=== PATIENT | female | born 1955 | race Caucasian/White ===

== ENCOUNTER 2017-10-13 16:20 | Emergency (ER) | payer OTHER, SELFPAY ==
[2017-10-13 16:21] VITALS: BP 159/76; PULSE 81; RESP 16; TEMP 36.1; O2SAT 97; BMI 39.5
--- NOTE | 2017-10-13 16:59 | ED.DCSUM_ITS ---
- ER Visit Summary Date of Service: 10/13/17 Chief Complaint: Laceration History of Present Illness: The patient is a 61 F who reports that she cut her right ring finger on a mandolin just prior to coming emergency department. She is on Plavix for a stent and is unable to get it to stop bleeding. She complains that she has a dull pain is 4 out of 10 severity. Is worsened by dependent position. Is relieved by elevating it and using cold. She denies any paresthesias. She is unsure when her last tetanus shot was. Physical Examination: Vitals: Stable. Afebrile. General: Well-nourished and well-developed. Head: Normocephalic atraumatic. Neck: Supple, no lymphadenopathy. No JVD. Nontender. Cardiovascular: Regular rate and rhythm. No murmurs. Respiratory: No respiratory distress. Clear to auscultation bilaterally. Abdominal: Soft, nontender, nondistended, normal bowel sounds. No guarding, rebound, or peritoneal signs. Back: Nontender. Extremities: Evulsion to the ulnar side of the distal phalanx of her ring finger that has bleeding from the proximal portion. This does involve a portion of her nail as well. Skin: Normal color, no rash. Neurologic: Alert and oriented ?3. Cranial nerves II through XII are intact. Normal strength and sensation. Psych: Normal affect. Emergency Department Course and Treatment: With a superficial avulsion there is nothing that is amenable to be sutured. She had Gelfoam and a tube gauze dressing placed. She is instructed to leave this in place for the next 24-48 hours. Treatment Plan: Follow-up with Dr. Herrera Sabillon who is next on the list for no doc as needed. Return to the emergency department for any worsening symptoms. Disposition: To home in improved and stable condition. Impression: 1. Partial avulsion right fourth finger distal phalanx. This note was generated with [employer] dictation software. It may contain incorrect words, spelling, and punctuation that were not noted in review of the chart prior to signing ED Disposition - Plan for ED Patient: Disposition: Home or Assisted Living Chief Complaint: Laceration Instructions: ED Laceration Amputation Finger Tip Open Tx Referrals: Herrera Thomas MD [STAFF PHYSICIAN] - As Needed
[2017-10-13 17:15] VITALS: BP 147/83; PULSE 87; RESP 14; O2SAT 99
== END 2017-10-13 17:16 | disposition home or self-care (01) ==
PROVIDERS: Emergency Provider Emergency Medicine
DX: S61.304A Unspecified open wound of right ring finger with damage to nail, initial encounter (principal); W45.8XXA Other foreign body or object entering through skin, initial encounter; Y93.9 Activity, unspecified; Y92.89 Other specified places as the place of occurrence of the external cause; Y99.9 Unspecified external cause status; I25.10 Atherosclerotic heart disease of native coronary artery without angina pectoris; E78.00 Pure hypercholesterolemia, unspecified; I10 Essential (primary) hypertension; E11.9 Type 2 diabetes mellitus without complications; F17.200 Nicotine dependence, unspecified, uncomplicated
CPT/HCPCS: 99282

== ENCOUNTER 2018-07-14 07:12 | Day surgery (SDC) | payer OTHER, SELFPAY ==
[2018-07-14] VITALS (7 sets, daily range): BP systolic 86–157; BP diastolic 31–123; PULSE 63–70; RESP 16; TEMP 35.8–36.6; O2SAT 92–99; BMI 37.5
[2018-07-14 07:50] LABS: Bedside Glucose 204 mg/dL (70-110)
--- NOTE | 2018-07-14 08:30 | COLBX_PTH ---
PATIENT: KAELYN DRUMMOND LOC: EN U#:[id number] AGE/SX: 62/F ROOM: RE07/14/[address]: Dr. Damion Drake MD : 1955 BED: DIS: 07/14/2018 SPEC #: [id number] RECD: 07/14/18 09:39 STATUS: VALERIO ROBERT #: [id number] RYDER: 07/14/18 08:[address]: Damion Drake DEPT: SURGICAL PATHOLOGY RECD BY: Casper Maki ENTERED: 07/14/18 11:32 SP TYPE: COLON BX OTHR DR: No Primary Care Phys Tissues: A - Cecum, NOS B - Rectum, NOS Procedures: Surgery Specimen Level IV HEADER OPERATION: Colonoscopy (MOD) PRE-OP DIAGNOSIS: Rectal bleeding TISSUE SUBMITTED: A. Cecal polyp, B. Rectal polyp MICROSCOPIC DIAGNOSIS A. Cecal polyp, biopsy: Tubular adenoma. B. Rectal polyp, biopsy: Fragments of colonic mucosa with focal hyperplastic changes. CAMILA:adrienne 07/15/18 MICROSCOPIC DESCRIPTION Slides are reviewed. GROSS DESCRIPTION A - Received in fixative is one container labeled with the patient's name and designated polyp cecum. The specimen consists of one irregular fragment of light mcmahon soft tissue that measures 0.3 x 0.3 x 0.1 cm. The specimen is totally submitted in one cassette. B - Received in fixative is one container labeled with the patient's name and designated polyp rectal. The specimen consists of two irregular fragments of light mcmahon soft tissue that in aggregate measure 1 x 0.3 x 0.2 cm. The specimen is totally submitted in one cassette. / CAMILA:adrienne 07/14/18 TC:1 CPT: 54857 x2
--- NOTE | 2018-07-14 09:11 | OP.ENDO_ITS ---
Patient Name: Anitra Powers Procedure Date: 07/14/2018 8:34 AM Date of : 1955 Age: 62 Procedure: Colonoscopy Indications: Rectal bleeding Providers: Damion Drake MD Referring MD: Damion Drake MD Medicines: Midazolam 4.5 mg IV, Meperidine 100 mg IV Patient Profile: Last Colonoscopy: none. The patient's first colonoscopy is today. Complications: No immediate complications. Procedure: Pre-Anesthesia Assessment: - Prior to the procedure, a History and Physical was performed, and patient medications and allergies were reviewed. The patient's tolerance of previous anesthesia was also reviewed. The risks and benefits of the procedure and the sedation options and risks were discussed with the patient. All questions were answered, and informed consent was obtained. Prior Anticoagulants: The patient has taken no previous anticoagulant or antiplatelet agents. ASA Grade Assessment: II - A patient with mild systemic disease. After reviewing the risks and benefits, the patient was deemed in satisfactory condition to undergo the procedure. After I obtained informed consent, the scope was passed under direct vision. Throughout the procedure, the patient's blood pressure, pulse, and oxygen saturations were monitored continuously. The adult colonoscope was introduced through the anus and advanced to the cecum, identified by appendiceal orifice and ileocecal valve. The colonoscopy was performed without difficulty. The patient tolerated the procedure well. The quality of the bowel preparation was adequate to identify polyps. The ileocecal valve was photographed. Moderate Sedation: Moderate (conscious) sedation was personally administered by the endoscopist. The following parameters were monitored: oxygen saturation, heart rate, blood pressure, and response to care. Total physician intraservice time was 15 minutes. Scope In: 8:42:48 AM Scope Withdrawal Time 0 hours 15 minutes 28 seconds Scope Out: 9:04:58 AM Total Procedure Duration Time 0 hours 22 minutes 10 seconds Findings: The digital rectal exam findings include non-thrombosed external hemorrhoids, non-thrombosed internal hemorrhoids and internal hemorrhoids that prolapse with straining, but spontaneously regress to the resting position (Grade II). A 8 mm polyp was found in the cecum. The polyp was sessile. The polyp was removed with a cold biopsy forceps. The polyp was removed with a cold snare. Resection and retrieval were complete. A 5 mm polyp was found in the rectum. The polyp was sessile. The polyp was removed with a cold snare. Resection and retrieval were complete. The exam was otherwise without abnormality. Impression: - Non-thrombosed external hemorrhoids, non-thrombosed internal hemorrhoids and internal hemorrhoids that prolapse with straining, but spontaneously regress to the resting position (Grade II) found on digital rectal exam. - One 8 mm polyp in the cecum, removed with a cold biopsy forceps and removed with a cold snare. Resected and retrieved. - One 5 mm polyp in the rectum, removed with a cold snare. Resected and retrieved. - The examination was otherwise normal. Recommendation: - Discharge patient to home. - Resume previous diet. - Continue present medications. - Repeat colonoscopy in 5 years for surveillance. - Telephone my office for pathology results in 1 week. Procedure Code(s): --- Professional --- 09737, Colonoscopy, flexible; with removal of tumor(s), polyp(s), or other lesion(s) by snare technique 76626, 59, Moderate sedation services provided by the same physician or other qualified health assurance services manager health care performing the diagnostic or therapeutic service that the sedation supports, requiring the presence of an independent trained observer to assist in the monitoring of the patient's level of consciousness and physiological status; initial 15 minutes of intraservice time, patient age 5 years or older Diagnosis Code(s): --- Professional --- K64.1, Second degree hemorrhoids K64.4, Residual hemorrhoidal skin tags D12.0, Benign neoplasm of cecum K62.1, Rectal polyp K62.5, Hemorrhage of anus and rectum CPT copyright 2017 [employer]. All rights reserved. The codes documented in this report are preliminary and upon clamp jig assembler review may be revised to meet current compliance requirements. Damion Drake MD 07/14/2018 9:10:38 AM This report has been signed electronically. Number of Addenda: 1 Note Initiated On: 07/14/2018 8:34 AM Addendum Number: 1 Addendum Date: 07/14/2018 9:10:56 AM No current rectal bleeding If previous bleeding was actually rectal then would suspect internal hemorrhoids as source Will recommend conservative management Bethany Drake MD 07/14/2018 9:11:52 AM This report has been signed electronically.
--- OUTSIDE RECORDS SUMMARY | 2018-08-25 19:53 | XMS RPT_ITS | Clinical Summary ---
:1955 Author Organization [facility] Address [address] [place] [address] Phone Care Team Providers Name Role Phone MD Ryan, Eder Veliz Unavailable [ ] Conditions or Problems Problem Name Problem Onset Status Entry Provider Comment Standard Annotate Code Date Date Description Body mass Z68.35 Inactive Alonso A Body mass index index (BMI) (ICD-10-CM 10/16 10/16 [place] (BMI) 35.0-35.9, 35.0-35.9, ) MANAGER BUSINESS OPERATIONS-C adult adult BODY MASS Z68.41 Active Alonso A Body mass index INDEX (ICD-10-CM 10/17 10/17 [place] (BMI) 40.0-44.9, 40.0-44.9 ) MANAGER BUSINESS OPERATIONS-C adult ADULT Body mass Z68.37 Inactive Eder Veliz Body mass index index (BMI) (ICD-10-CM 10/17 10/17 MD Ryan (BMI) 37.0-37.9, 37.0-37.9, ) adult adult Body mass Z68.35 Removed Arely Brown Body mass index index (BMI) (ICD-10-CM 10/16 10/16 [place], (BMI) 35.0-35.9, 35.0-35.9, ) RN adult adult intermediate manager Z79.02 Active Arely Brown intermediate manager (current) (ICD-10-CM 10/16 10/16 [place], (current) use of use of ) RN antithrombotics/ antithrombot antiplatelets ics/antiplat elets Hyperlipidem 51033774 Active Arely Brown Hyperlipidemia ia (SNOMED 10/16 10/16 [place]) RN Status post [id number] Active Arely M Placement of cardiac (SNOMED 10/16 10/16 [facility], stent in stent CT) RN coronary artery placement 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[facility], heart disease of disease of ) RN [place] coronary [place] artery without coronary angina pectoris artery without angina pectoris Nicotine 30386471 Active Arely M Nicotine dependence ([facility]16 [facility], dependence CT) RN LONG-TERM 148799681 Active Arely Long-term drug USE OF High ([facility] 10/16 10/16 [facility], therapy Risk CT) RN MEDICATIONS Hypertension 14380372 Active Arely M Hypertensive ([facility] 10/16 10/16 [facility], disorder CT) RN Medications Medication Instructions Start Stop Generic Name NDC Provider Date Date AMLODIPINE One tablet by / AMLODIPINE [id number] [place] S BESYLATE 5 MG mouth daily BESYLATE MD Ryan TABS LISINOPRIL 10 One tablet by / LISINOPRIL 65989200730 [place] S MG TABS mouth daily MD Ryan ATORVASTATIN One tablet by / ATORVASTATIN 46466989180 [place] S CALCIUM 80 MG mouth every CALCIUM MD Ryan TABS night METOPROLOL One half / METOPROLOL 11316571098 [place] S TARTRATE 25 MG tablet by mouth TARTRATE MD Ryan TABS twice daily PLAVIX 75 MG One tablet by / CLOPIDOGREL 15373230875 [place] S TABS mouth daily BISULFATE MD Ryan METFORMIN HCL four tablets by / METFORMIN HCL 95720968388 [place] S ER 500 MG mouth daily MD Ryan [id number] LANTUS 100 25 units per / INSULIN 13405833227 Alonso A UNIT/ML SOLN day 13 GLARGINE [place] MANAGER BUSINESS OPERATIONS-C ASPIRIN 81 MG One tablet by / ASPIRIN 50054273002 Arely M TABS mouth daily TIARA Smart MELOXICAM 15 MG One tablet by / MELOXICAM 82603373296 Arely M TABS mouth daily TIARA Smart AMARYL 4 MG One tablet by / GLIMEPIRIDE 82645624790 Arely M TABS mouth daily TIARA Smart METOPROLOL One tablet by / METOPROLOL 53975709762 Arely M TARTRATE 25 MG mouth twice TARTRATE TIARA Smart TABS daily METFORMIN HCL Two tablets by / METFORMIN HCL 52530315883 Arely M ER 500 MG mouth twice TIARA Smart [id number] daily BEE POLLEN 580 One tablet by / BEE POLLEN 27960444023 Arely M MG CAPS mouth daily Kiljosh RN BEE POLLEN 580 One tablet by BEE POLLEN 97167482239 [place] S MG CAPS mouth daily MD Ryan NICOTINE 7 one patch / NICOTINE 74698332398 Arely M MG/24HR PT24 transderm daily TIARA Smart NICOTINE 7 one patch NICOTINE 15982362380 Alonso A MG/24HR PT24 transderm daily [place] MANAGER BUSINESS OPERATIONS-C LORAZEPAM 0.5 as directed as / LORAZEPAM 60786802504 Arely M MG TABS needed TIARA Smart LORAZEPAM 0.5 as directed as LORAZEPAM 57545440962 [place] S MG TABS needed MD Ryan Medications Administered No information available. Allergies, Adverse Reactions, Alerts Allergy Name Reaction Start Date Severity Status Provider Description NKDA Mild Active Arely Smart RN Results Date Name Value Unit Range Flag Description Clinical Lists Update: Preload CARDEFECHO 65 % Left ventricular Ejection fraction Office Visit CHD 10YR RSK N/A General cardiovascular disease 10Y risk [#] [place].D'Agostino CARD RSK GRP C cardiac risk group DIET EVS ATTENDANT yes Dietary management education, guidance, and counseling (procedure) MEDS REVIEW Done Documentation of current medications (procedure) SMOK ADVICE yes Smoking cessation education (procedure) SMOK STATUS Current every Tobacco use [facility] day smoker Lab Report: Urinalysis, Routine (Dipstick) WBC DIPSTK U 500 Negative H leukocyte esterase, urine, by dipstick OCC BLD UR 150 Negative H Occult Blood, urine NITRITE UA Negative Negative Nitrite Urine UROBILIURDIP Normal mg/d Normal urobilinogen, urine, L by dipstick PROTEIN, URN 100 Negative H Albumin [Presence] in Urine PH URINE 6.0 5.0 - 8.0 pH, urine, semiquantitative SPEC GR URIN 1.025 1.002-1.030 specific gravity, urine KETONES URN Negative Negative ketones, urine, by test strip BILIRUBIN UR Negative Negative bilirubin, urine GLUCOSE UA Normal mg/d Normal Glucose Urine L CLARITY UR Sl. Cloudy Clear clarity, urine, point UA COLOR Yellow Yellow urine color Lab Report: CBC W/Diff, Automated LYMPHCT AUTO 2.32 X10 10*3/mm3 0.83-4.51 lymphocyte 3/UL count, blood, automated ANC 5.1 X10 10*3/mm3 2.0-7.7 neutrophil 3/UL count, blood IMM GRANU % 0.200 % 0.0-0.9 immature granulocytes, percentage of total cells, blood BASOPHIL % 0.4 % 0-1 basophils as percent of blood leukocytes EOSINOPHIL % 1.7 % 0-5 eosinophils as percent of blood leukocytes MONOCYTE % 9.1 % 0-10 monocytes as percent of blood leukocytes LYMPHS % 27.6 % 19-41 lymphocytes as percent of blood leukocytes PMN % 61.0 % 47-70 neutrophils as percent of blood leukocytes MPV 9.7 fL 6.2-12.0 mean platelet volume PLATELETS 246 10*3/mm3 150-450 platelet count RDW-SD 46.4 fL 35.1-43.9 H red blood cell distribution width, size density RDW 13.5 % 11.6-14.6 red blood cell distribution width MCHC RBC 34.0 G/GL g/dL 32-36 mean corpuscular hemoglobin concentration, RBC MCH 32.8 pg 27.0-32.0 H mean corpuscular hemoglobin, RBC MCV 96.4 fL 81-99 mean corpuscular volume, RBC HCT 45.9 % 37-47 hematocrit, blood HGB 15.6 g/dL 12.0-15.0 H hemoglobin, blood RBC M/UL 4.76 10*6/uL 4.2-5.4 red blood count WBC BLOOD 8.4 10*9/L 4.4-11.0 leukocyte (white blood cells) count, blood Lab Report: Vitamin D,25 Hydroxy VIT D 25-OH 15.4 ng/mL vitamin D 25-hydroxy, serum Lab Report: Comprehensive Metabolic Profil ANION GAP 11 5-15 anion gap, serum CO2 25.0 mmol/L 21.0-32.0 carbon dioxide, venous blood CHLORIDE 103 mmol/L 98-107 chloride, serum POTASSIUM 4.2 mmol/L 3.5-5.1 potassium, serum SODIUM 139 mmol/L 136-145 sodium, serum BILI TOTAL 0.40 mg/dL 0.20-1.00 bilirubin, serum, total SGPT (ALT) 31 U/L 12-78 alanine aminotransferase (SGPT), serum ALK PHOS 63 U/L 45-117 alkaline phosphatase, serum SGOT (AST) 24 U/L 15-37 aspartate aminotransferase (SGOT), serum CALCIUM 8.4 mg/dL 8.5-10.1 L calcium, serum A/G RATIO 1.1 RATIO 0.9-2.4 albumin/globulin ratio, serum GLOBULIN TOT 3.3 g/dL 2.3-3.5 globulins, serum, total ALBUMIN 3.5 g/dL 3.4-5.0 albumin, serum PROTEIN, TOT 6.8 g/dL 6.4-8.2 protein, total, serum BUN/CREAT 21.2 RATIO 10-20 H urea nitrogen/creatinine ratio, serum GFRAA 117 mL/min >60 Glomerular Filtration rate GFR EST 96 mL/min >60 estimated glomerular filtration rate CREATININE 0.66 mg/dL 0.55-1.02 creatinine, serum BUN 14 mg/dL 7-18 urea nitrogen, blood GLUCOSE SER 159 mg/dL 70-110 H blood glucose Lab Report: Lipid Profile VLDL 58 mg/dL 5-40 H very low density lipoproteins LDL 84 mg/dL 0-130 Cholesterol in LDL [Mass/volume] in Serum or Plasma HDL 35 mg/dL L Cholesterol in HDL [Mass/volume] in Serum or Plasma TRIGLYCRDES 292 mg/dL H Triglyceride [Mass/volume] in Serum or Plasma CHOLESTEROL 177 mg/dL 200 Cholesterol [Mass/volume] in Serum or Plasma Lab Report: Bilirubin, Direct BILI DIRECT 0.13 mg/dL 0.00-0.30 bilirubin, serum, direct Plan of Care Type Date Detail Appointment 10:00 AM Ivonne Mendoza PA-C, [address] [facility], [address], [place], [address], Pending order MMM Pending order Follow Up Appt 6 months Pending order *Hepatic Function Panel Pending order *Lipid Profile CC PCP Pending order MANAGER FARM Pending order Follow Up Appt 6 months Pending order MMM Pending order Follow Up Appt 6 months Pending order *Hepatic Function Panel Pending order *Lipid Profile CC PCP Procedures Code Procedure Name Date Entry Date 787-08 *Hepatic Function Panel 91452-0 *Lipid Profile CC PCP F/U MANAGER FARM MANAGER FARM FUA 6 months Follow Up Appt 6 months F/U MMM MMM FUA 6 months Follow Up Appt 6 months 0788-1 *Hepatic Function Panel 30085-9 *Lipid Profile CC PCP Vital Signs Date Name Value Unit Description BMI (Body Mass Index) 40.97 kg/m2 Body Mass Index [Ratio] BP Diastolic 60 mm[Hg] blood pressure, diastolic - 8462-4 BP Diastolic 64 mm[Hg] blood pressure, diastolic, standing BP Systolic 90 mm[Hg] blood pressure, systolic - 8480-6 BP Systolic 110 mm[Hg] blood pressure, systolic, standing Heart Rate 64 /min pulse rate E&M - 8867-4 Height 62 [in_us] height E&M - 8302-2 Respiratory Rate 18 /min respiratory rate E&M - 9279-1 Weight Measured 224 [lb_av] weight E&M - 3141-9 BSA (Body Surface 2.00 body surface area Area)
--- OUTSIDE RECORDS SUMMARY | 2018-08-25 19:53 | XMS RPT_ITS | Clinical Summary ---
:1955 Author Organization [facility] Address [address] [place] [phone] Phone Care Team Providers Name Role Phone Jesusita Larios Garcia Roseann Unavailable Conditions or Problems Problem Name Problem Onset Status Entry Provider Comment Standard Annotate Code Date Date Description Body mass Z68.35 Inactive Alonso A Body mass index index (BMI) (ICD-10-CM 10/16 10/16 [place] (BMI) 35.0-35.9, 35.0-35.9, ) NET DEVELOPMENT MANAGER-C adult adult BODY MASS Z68.41 Active Alonso A Body mass index INDEX (ICD-10-CM 10/17 10/17 [place] (BMI) 40.0-44.9, 40.0-44.9 ) NET DEVELOPMENT MANAGER-C adult ADULT Body mass Z68.37 Inactive Eder Veliz Body mass index index (BMI) (ICD-10-CM 10/17 10/17 MD Ryan (BMI) 37.0-37.9, 37.0-37.9, ) adult adult Body mass Z68.35 Removed Arely M Body mass index index (BMI) (ICD-10-CM 10/16 10/16 [place], (BMI) 35.0-35.9, 35.0-35.9, ) RN adult adult superintendent terminal Z79.02 Active Arely M superintendent terminal (current) (ICD-10-CM 10/16 10/16 [place], (current) use of use of ) RN antithrombotics/ antithrombot antiplatelets ics/antiplat elets Hyperlipidem 86307220 Active Arely M Hyperlipidemia ia (SNOMED 10/16 10/16 [place]) RN Status post 92584136 Active Arely M Placement of cardiac (SNOMED 10/16 10/16 [facility], stent in stent CT) RN coronary artery placement 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[facility], heart disease of disease of ) RN [place] coronary [place] artery without coronary angina pectoris artery without angina pectoris Nicotine 35344479 Active Arely Nicotine dependence ([facility] 10/16 10/16 [facility], dependence CT) RN LONG-TERM 200923746 Active Arely Long-term drug USE OF High ([facility] 10/16 10/16 [facility], therapy Risk CT) RN MEDICATIONS Hypertension 76595275 Active Arely Hypertensive ([facility] 10/16 10/16 [facility], disorder CT) RN Medications Medication Instructions Start Stop Generic Name NDC Provider Date Date AMLODIPINE One tablet by / AMLODIPINE 09940062991 [place] S BESYLATE 5 MG mouth daily BESYLATE MD Ryan TABS LISINOPRIL 10 One tablet by / LISINOPRIL 86220055685 Eder S MG TABS mouth daily MD Ryan ATORVASTATIN One tablet by / ATORVASTATIN 79236161752 Eder S CALCIUM 80 MG mouth every CALCIUM MD Ryan TABS night METOPROLOL One half / METOPROLOL 49448623343 [place] S TARTRATE 25 MG tablet by mouth TARTRATE MD Ryan TABS twice daily PLAVIX 75 MG One tablet by / CLOPIDOGREL 82068556416 [place] S TABS mouth daily BISULFATE MD Ryan METFORMIN HCL four tablets by / METFORMIN HCL 23629729982 Eder S ER 500 MG mouth daily MD Ryan [id number] LANTUS 100 25 units per / INSULIN 38854192365 Alonso A UNIT/ML SOLN day 13 GLARGINE [place] NET DEVELOPMENT MANAGER-C ASPIRIN 81 MG One tablet by / ASPIRIN 77228173016 Arely M TABS mouth daily TIARA Smart MELOXICAM 15 MG One tablet by / MELOXICAM 05633628650 Arely M TABS mouth daily 01 TIARA Smart AMARYL 4 MG One tablet by / GLIMEPIRIDE 29657478649 Arely M TABS mouth daily TIARA Smart METOPROLOL One tablet by / METOPROLOL 91595871663 Arely M TARTRATE 25 MG mouth twice TARTRATE TIARA Smart TABS daily METFORMIN HCL Two tablets by / METFORMIN HCL 50613543667 Arely M ER 500 MG mouth twice TIARA Smart WS88N-NYD daily BEE POLLEN 580 One tablet by / BEE POLLEN 01038710090 Arely M MG CAPS mouth daily Kiljosh RN BEE POLLEN 580 One tablet by BEE POLLEN 23022486818 Eder S MG CAPS mouth daily MD Ryan NICOTINE 7 one patch / NICOTINE 39780170956 Arely M MG/24HR PT24 transderm daily TIARA Smart NICOTINE 7 one patch NICOTINE 51755340925 Alonso A MG/24HR PT24 transderm daily [place] NET DEVELOPMENT MANAGER-C LORAZEPAM 0.5 as directed as / LORAZEPAM 32678434005 Arely M MG TABS needed TIARA Smart LORAZEPAM 0.5 as directed as LORAZEPAM 76906694780 [place] S MG TABS needed MD Ryan Medications Administered No information available. Allergies, Adverse Reactions, Alerts Allergy Name Reaction Start Date Severity Status Provider Description NKDA Mild Active Arely Smart RN Results Date Name Value Unit Range Flag Description Clinical Lists Update: Preload ARAMIS 65 % Left ventricular Ejection fraction Office Visit CHD 10YR RSK N/A General cardiovascular disease 10Y risk [#] [place].D'Agostino CARD RSK GRP C cardiac risk group DIET CO FOUNDER AND CHAIRMAN yes Dietary management education, guidance, and counseling (procedure) MEDS REVIEW Done Documentation of current medications (procedure) SMOK ADVICE yes Smoking cessation education (procedure) SMOK STATUS Current every Tobacco use [facility] day smoker Lab Report: Urinalysis, Routine [...] Detail Appointment 10:00 AM Ivonne Mendoza PA-C, [address] [facility], [address], [place], [address], Pending order *Hepatic Function Panel Pending order *Lipid Profile CC PCP Pending order MMM Pending order Follow Up Appt 6 months Pending order *Hepatic Function Panel Pending order *Lipid Profile CC PCP Pending order ELECTRONIC IMAGING SYSTEM OPERATOR Pending order Follow Up Appt 6 months Pending order MMM Pending order Follow Up Appt 6 months Pending order *Hepatic Function Panel Pending order *Lipid Profile CC PCP Patient education LOW%20FAT%20DIET Procedures Code Procedure Name Date Entry Date 0788-1 *Hepatic Function Panel 54749-3 *Lipid Profile CC PCP F/U ELECTRONIC IMAGING SYSTEM OPERATOR ELECTRONIC IMAGING SYSTEM OPERATOR FUA 6 months Follow Up Appt 6 months F/U MMM MMM FUA 6 months Follow Up Appt 6 months 0788-1 *Hepatic Function Panel 00447-3 *Lipid Profile CC PCP Vital Signs Date [...]
--- OUTSIDE RECORDS SUMMARY | 2018-08-25 19:53 | XMS RPT_ITS | Clinical Summary ---
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 BODY MASS Z68.41 Active Alonso A Body mass index INDEX (ICD-10-CM 10/17 10/17 [place] (BMI) 40.0-44.9, 40.0-44.9 ) 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 Body mass Z68.37 Inactive Eder Veliz Body mass index index (BMI) (ICD-10-CM 10/17 10/17 MD Ryan (BMI) 37.0-37.9, 37.0-37.9, ) adult adult Body mass Z68.35 2015/ Removed Arely Brown Body mass index index (BMI) (ICD-10-CM 10/16 10/16 Bing, (BMI) 35.0-35.9, 35.0-35.9, ) RN adult adult correction Z79.02 Active Arely Brown [employer] (current) (ICD-10-CM 10/16 10/16 Bing, (current) use of use of ) RN antithrombotics/ antithrombot antiplatelets ics/antiplat elets Hyperlipidem [id number] Active Arely Brown Hyperlipidemia ia (SNOMED 10/16 10/16 [place], [place]) RN Status post [id number] Active Arely M Placement of cardiac (SNOMED 10/16 10/16 [facility], stent in stent CT) RN coronary artery placement 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[facility], heart disease of disease of ) RN [place] coronary [place] artery without coronary angina pectoris artery without angina pectoris Nicotine 35308098 Active Arely M Nicotine dependence ([facility] 10/16 10/16 [facility], dependence CT) RN LONG-TERM 287053776 Active Arely Long-term drug USE OF High ([facility] 10/16 10/16 [facility], therapy Risk CT) RN MEDICATIONS Hypertension 77872709 Active Arely M Hypertensive ([facility] 10/16 10/16 [facility], disorder CT) RN Medications Medication Instructions Start Stop Generic Name NDC Provider Date Date AMLODIPINE One tablet by / AMLODIPINE [id number] Eder S BESYLATE 5 MG mouth daily BESYLATE MD Ryan TABS LISINOPRIL 10 One tablet by / LISINOPRIL [id number] Eder S MG TABS mouth daily MD Ryan ATORVASTATIN One tablet by / ATORVASTATIN [id number] Eder S CALCIUM 80 MG mouth every CALCIUM MD yRan TABS night METOPROLOL One half / METOPROLOL [id number] [place] S TARTRATE 25 MG tablet by mouth TARTRATE MD Ryan TABS twice daily PLAVIX 75 MG One tablet by / CLOPIDOGREL [id number] [place] S TABS mouth daily BISULFATE MD Ryan METFORMIN HCL four tablets by / METFORMIN HCL [id number] Eder S ER 500 MG mouth daily MD Ryan [id number] LANTUS 100 25 units per / INSULIN [id number] Alonso A UNIT/ML SOLN day 13 GLARGINE [place] 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 ASPIRIN 81 MG One tablet by / ASPIRIN [id number] Arely M TABS mouth daily TIARA Smart MELOXICAM 15 MG One tablet by / MELOXICAM 45098987033 Arely M TABS mouth daily TIARA Smart AMARYL 4 MG One tablet by / GLIMEPIRIDE [id number] Arely M TABS mouth daily TIARA Smart METOPROLOL One tablet by / METOPROLOL [id number] Arely M TARTRATE 25 MG mouth twice TARTRATE TIARA Smart TABS daily METFORMIN HCL Two tablets by / METFORMIN HCL [id number] Arely M ER 500 MG mouth twice TIARA Smart [id number] daily BEE POLLEN 580 One tablet by / BEE POLLEN [id number] Arely M MG CAPS mouth daily TIARA Smart BEE POLLEN 580 One tablet by BEE POLLEN [id number] [place] S MG CAPS mouth daily MD Ryan NICOTINE 7 one patch NICOTINE 52822199399 Arely M MG/24HR PT24 transderm daily TIARA Smart NICOTINE 7 one patch NICOTINE 34852043761 Alonso A MG/24HR PT24 transderm daily [place] SOFTWARE 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 LORAZEPAM 0.5 as directed as LORAZEPAM 78655126735 Arely M MG TABS needed TIARA Smart LORAZEPAM 0.5 as directed as LORAZEPAM [id number] [place] S MG TABS needed MD Ryan Medications Administered No information available. Allergies, Adverse Reactions, Alerts Allergy Name Reaction Start Date Severity Status Provider Description NKDA Mild Active Arely Smart RN Results Date Name Value Unit Range Flag Description Clinical Lists Update: Preload GLUCOSE SER 147 mg/dL H blood glucose CALCIUM 8.2 mg/dL L calcium, serum BUN/CREAT 16.2 urea nitrogen/creatinin e ratio, serum CREATININE 0.68 mg/dL creatinine, serum BUN 11 mg/dL urea nitrogen, blood ANION GAP 5 anion gap, serum CO2 27 mmol/L carbon dioxide, venous blood CHLORIDE 107 mmol/L chloride, serum POTASSIUM 4.2 mmol/L potassium, serum SODIUM 139 mmol/L sodium, serum HDL 34 mg/dL Cholesterol in HDL [Mass/volume] in Serum or Plasma CHOLESTEROL 185 mg/dL Cholesterol [Mass/volume] in Serum or Plasma TRIGLYCRDES 452 mg/dL Triglyceride [Mass/volume] in Serum or Plasma MONIQUEEFECHO 65 % Left ventricular Ejection fraction Office Visit CHD 10YR RSK N/A General cardiovascular disease 10Y risk [#] [place] CARD RSK GRP C cardiac risk group 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 Dietary management education, guidance, and counseling (procedure) MEDS REVIEW Done Documentation of current medications (procedure) SMOK ADVICE yes Smoking cessation education (procedure) SMOK STATUS Current every Tobacco use [facility] day smoker Lab Report: Urinalysis, Routine [...] ng/mL vitamin D 25-hydroxy, serum Lab Report: Bilirubin, Direct BILI DIRECT 0.13 mg/dL 0.00-0.30 bilirubin, serum, direct Plan of Care Type Date Detail Appointment 10:00 AM Ivonne Mendoza PA-C, [address], [address], [place], [address], Pending order MMM Pending order Follow Up Appt 6 months Pending order *Hepatic Function Panel Pending order *Lipid Profile CC PCP Pending order 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
--- OUTSIDE RECORDS SUMMARY | 2018-08-25 19:54 | XMS RPT_ITS ---
:1955 Author Organization OHIP Care Team Providers Name Role Phone Michael Diaz Attending Unavailable Primay Care Physicia, No Primary Care Unavailable Damion Drake Attending Unavailable SealsVenancio Referring Unavailable CebulDamion Attending Unavailable CebulDamion Referring Unavailable Primay Care Physicia, No Primary Care Unavailable PROBLEMS PROBLEMS No Problem Records FoundPROCEDURES PROCEDURES No Procedure Records FoundRESULTS RESULTS OPERATIVE REPORT - Observed: 07/14/2018 Status: F Source: [place] [facility] 9:12 AM [facility] REPOSITORY [facility] Medical Records Department [address] [place] [address] Operative Report - Endoscopy MR#: [id number] Acct: [id number] Name: KAELYN DRUMMOND Rep #: [id number] : 1955 62 From: Damion Drake MD PCP: Care Physician, No Primary Status: REG [facility] Patient Name: Kaelyn Drummond Procedure Date: 07/14/2018 8:34 AM Date of : 1955 Age: 62 Procedure: Colonoscopy Indications: Rectal bleeding Providers: Damion Drake MD Referring MD: Damion Drake MD Medicines: Midazolam 4.5 mg IV, Meperidine 100 mg IV Patient Profile: Last Colonoscopy: none. The patient's first colonoscopy is today. Complications: No immediate complications. Procedure: Pre-Anesthesia Assessment: - Prior to the procedure, a History and Physical was performed, and patient medications and allergies were reviewed. The patient's tolerance of previous anesthesia was also reviewed. The risks and benefits of the procedure and the sedation options and risks were discussed with the patient. All questions were answered, and informed consent was obtained. Prior Anticoagulants: The patient has taken no previous anticoagulant or antiplatelet agents. ASA Grade Assessment: II - A patient with mild systemic disease. After reviewing the risks and benefits, the patient was deemed in satisfactory condition to undergo the procedure. After I obtained informed consent, the scope was passed under direct vision. Throughout the procedure, the patient's blood pressure, pulse, and oxygen saturations were monitored continuously. The adult colonoscope was introduced through the anus and advanced to the cecum, identified by appendiceal orifice and ileocecal valve. The colonoscopy was performed without difficulty. The patient tolerated the procedure well. The quality of the bowel preparation was adequate to identify polyps. The ileocecal valve was photographed. Moderate Sedation: Moderate (conscious) sedation was personally administered by the endoscopist. The following parameters were monitored: oxygen saturation, heart rate, blood pressure, and response to care. Total physician intraservice time was 15 minutes. Scope In: 8:42:48 AM Scope Withdrawal Time 0 hours 15 minutes 28 seconds Scope Out: 9:04:58 AM Total Procedure Duration Time 0 hours 22 minutes 10 seconds Findings: The digital rectal exam findings include non-thrombosed external hemorrhoids, non-thrombosed internal hemorrhoids and internal hemorrhoids that prolapse with straining, but spontaneously regress to the resting position (Grade II). A 8 mm polyp was found in the cecum. The polyp was sessile. The polyp was removed with a cold biopsy forceps. The polyp was removed with a cold snare. Resection and retrieval were complete. A 5 mm polyp was found in the rectum. The polyp was sessile. The polyp was removed with a cold snare. Resection and retrieval were complete. The exam was otherwise without abnormality. Impression: - Non-thrombosed external hemorrhoids, non-thrombosed internal hemorrhoids and internal hemorrhoids that prolapse with straining, but spontaneously regress to the resting position (Grade II) found on digital rectal exam. - One 8 mm polyp in the cecum, removed with a cold biopsy forceps and removed with a cold snare. Resected and retrieved. - One 5 mm polyp in the rectum, removed with a cold snare. Resected and retrieved. - The examination was otherwise normal. Recommendation: - Discharge patient to home. - Resume previous diet. - Continue present medications. - Repeat colonoscopy in 5 years for surveillance. - Telephone my office for pathology results in 1 week. Procedure Code(s): --- Professional --- 13284, Colonoscopy, flexible; with removal of tumor(s), polyp(s), or other lesion(s) by snare technique 99634, 59, Moderate sedation services provided by the same physician or other qualified health healthcare economics manager performing the diagnostic or therapeutic service that the sedation supports, requiring the presence of an independent trained observer to assist in the monitoring of the patient's level of consciousness and physiological status; initial 15 minutes of intraservice time, patient age 5 years or older Diagnosis Code(s): --- Professional --- K64.1, Second degree hemorrhoids K64.4, Residual hemorrhoidal skin tags D12.0, Benign neoplasm of cecum K62.1, Rectal polyp K62.5, Hemorrhage of anus and rectum CPT copyright 2017 [employer]. All rights reserved. The codes documented in this report are preliminary and upon truck technician review may be revised to meet current compliance requirements. Damion Drake MD 07/14/2018 9:10:38 AM This report has been signed electronically. Number of Addenda: 1 Note Initiated On: 07/14/2018 8:34 AM Addendum Number: 1 Addendum Date: 07/14/2018 9:10:56 AM No current rectal bleeding If previous bleeding was actually rectal then would suspect internal hemorrhoids as source Will recommend conservative management Bethany Drake MD 07/14/2018 9:11:52 AM This report has been signed electronically. 07/14/18 0911 Date Damion Drake MD Cosigner Signature: Date (if indicated) CC: No Primary Care Physician; Damion Drake MD Date Dictated: 07/14/18833 Date Transcribed: Ambulance Driver: TAN Signed COLON BIOPSY (CHOOSE Observed: 07/14/2018 Status: F Source: [facility]) 8:30 AM [facility] REPOSITORY Patient: KAELYN DRUMMOND : 1955 (62/F) Acct Num: [id number] Phys: Noelle PALOMO,Damion Unit Num: [id number] Loc: EN Specimen: [id number] Received: 07/14/18938 Spec Type: COLON BX TISSUES 1 TISSUES: A. Cecum, NOS B. Rectum, NOS GROSS DESCRIPTION A - Received in fixative is one container labeled with the patient's name and designated polyp cecum. The specimen consists of one irregular fragment of light mcmahon soft tissue that measures 0.3 x 0.3 x 0.1 cm. The specimen is totally submitted in one cassette. B - Received in fixative is one container labeled with the patient's name and designated polyp rectal. The specimen consists of two irregular fragments of light mcmahon soft tissue that in aggregate measure 1 x 0.3 x 0.2 cm. The specimen is totally submitted in one cassette. / CAMILA:adrienne 07/14/18 TC:1 CPT: 18211 x2 HEADER OPERATION: Colonoscopy (MOD) PRE-OP DIAGNOSIS: Rectal bleeding TISSUE SUBMITTED: A. Cecal polyp, B. Rectal polyp MICROSCOPIC DESCRIPTION Slides are reviewed. MICROSCOPIC DIAGNOSIS A. Cecal polyp, biopsy: Tubular adenoma. B. Rectal polyp, biopsy: Fragments of colonic mucosa with focal hyperplastic changes. CAMILA:adrienne 07/15/18 Signed Gamal Murillo 07/15/18 <signature on file> Performed By: #### PCOLBX #### [facility] [address] [place], [address] BEDSIDE GLUCOSE Collected: 07/14/2018 Status: F Source: [place] 7:38 AM [facility] REPOSITORY TYPE CODE TESTS RESULT OUT OF REFERENCE UNITS RANGE LAB L501.080 70-110 mg/dL High BEDSIDE GLU 204 Result Comment: MANAGEMENT OF PATIENT CARE PER NURSING PROTOCOL Performed By: #### L501.080 #### [facility] Point of Care [address] [place] [address] SURGERY VISIT REPORT Observed: 06/26/2018 Status: F Source: [place] 4:34 PM [facility] REPOSITORY [facility] 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 Manager Required: No Is patient in pain?: No Allergies No Known Allergies Allergy (Verified 06/26/18 13:59) Medications Glimepiride [Amaryl] 4 mg PO DAILY 10/08/15 [History Confirmed 06/26/18] Lisinopril [Zestril] 10 mg PO DAILY 10/08/15 [History Confirmed 06/26/18] Lorazepam [Ativan] 0.5 mg PO DAILY PRN PRN 10/08/15 [History Confirmed 06/26/18] Metformin HCl [Glucophage] 1,000 mg PO BID 10/08/15 [History Confirmed 06/26/18] clopidogrel 75 mg tablet 75 mg PO QDAY #90 tab 09/01/17 [Rx Confirmed 06/26/18] amlodipine 5 mg tablet 5 mg PO QDAY #90 tab 02/02/18 [Rx Confirmed 06/26/18] rosuvastatin 10 mg tablet 10 mg PO DAILY 06/26/18 [History Confirmed 06/26/18] Is last menstrual period known: No Post menopausal: Yes Patient : No PFSH Medical History Tobacco dependence due to cigarettes (Acute) Rectal bleeding (Acute) Anxiety (Acute) CAD (coronary artery disease) (Acute) H/O heart artery stent (Acute 2014) History of diabetes mellitus (Acute) History of hysterectomy (Acute) History of peripheral arterial disease (Acute) Hyperlipidemia (Acute) Myocardial infarction (Acute 2014) Surgical History H/O cardiac catheterization (Acute) History of cholecystectomy (Acute) Family History Sister Diabetes Brother Cancer throat Social History Smoking Status: Current every day smoker HPI HPI HPI: ANGELA DRUMMOND, is a 62 F who presents to the office today for surgical consultation regarding rectal bleeding. The patient does not currently have a primary care physician. She is referred by Dr. Venancio Lui and a written copy of my surgical consult recommendations will be returned to him. The patient states that she had an episode that when she stood up that she noted blood running down her legs. She has been evaluated by a gynecologic standpoint and although she had a remote hysterectomy this is not felt likely to be the source. The patient has never previously had a colonoscopy. Family history is negative for colon polyps or colon cancer. As noted the patient does not have a primary care physician. She does have a history of coronary stents and lower extremity stenting. She is on clopidogrel. She states that previously she had acute angina with an urgent catheterization and stenting. She states that she has not actually had a previous myocardial infarction or stroke. She has had multiple surgical procedures. She smokes 1 pack/day of tobacco and has done so for multiple years. She states that Wellbutrin has not been able to help her stop. She denies any abdominal pain. Denies any history of diverticulitis. Denies any sense of prolapsing tissue or hemorrhoids. She denies any pain. She denies history of anemia. ROS General General: Yes weight change; no appetite, fatigue, colon cancer, breast cancer or weakness HEENT HEENT: No difficulty swallowing, eye injury, eye surgery, swollen glands or hoarseness Endo Endocrine: Yes diabetes mellitus; no thyroid disease, thyroid cancer, Hair loss, heat intolerance or cold intolerance Musc Musculoskeletal: Yes arthritis; no back problems, rheumatoid arthritis, gout or joint pain Cardio Cardiovascular: Yes heart attack and heart stent; no murmur, pacemaker, heart disease, atrial fibrillation, high blood pressure, palpitations, shortness of breat with exertion or chest pain Psych Psychiatric: Yes anxiety; no depression or hearing voices Resp Respiratory: No shortness of breath, No sleep apnea, No cough, No COPD, No asthma, No emphysema, No wheezing Gastro Gastrointestinal: No abdominal pain, No nausea or vomiting, No diarrhea, No constipation, No blood in stool, No acid reflux, No hemorrhoids, No ulcers, No gallbladder problem, No black,tarry stools Michael Hematologic: Yes blood thinners, No blood disorders, No bleeding, No anemia, No blood clots Neuro Neurologic: No weakness Exam Const General: cooperative Nutritional Appearance: obese Orientation: alert, awake HENSC Head: normal to inspection Chest Chest palpation AND inspection: normal inspection of the chest Resp Effort AND Inspection: normal respiratory effort Auscultation: clear to auscultation bilaterally Cardio Rate: regular rate Rhythm: regular rhythm Heart Sounds: no murmurs GI Other: Notably overweight, nontender, I cannot detect any internal organs, normal bowel sounds Musc Cervical Spine: normal cervical lordosis Neuro Cranial Nerves: CN's II-XI intact bilaterally Extrem General: no clubbing, cyanosis or edema Psych Affect: normal affect Assessment AND Plan Problems 1. Rectal bleeding K62.5 2. Tobacco dependence due to cigarettes F17.210 Plan Suspected episode of rectal bleeding. The patient however actually was absolutely indeterminant as from where the blood had a reason. She states this was one episode. Has never had a colonoscopy. She does take clopidogrel. I recommend colonoscopy with possible biopsy or polypectomy is indicated. She is aware of the technique, benefits, risks, alternatives. If no source of bleeding is identified then likely would take a conservative approach while the patient then would inspect for possible repeat future episodes. Hopefully she would then be able to better locate the origin if it recurs. I have strongly encouraged the patient to cease her tobacco use I have instructed her that this will affect her coronary stents as well as her peripheral vascular stents as well as other organ systems. She has had an opportunity to ask and have questions answered. We will proceed with colonoscopy and I appreciate the opportunity of assisting with her surgical care CC: Dr. Venancio Drake M.D., F.A.C.S. Coding Level of Care Code Detailed, Low Diagnoses Rectal bleeding K62.5 Tobacco dependence due to cigarettes F17.210 06/26/18 1634 <Electronically signed by Damion Drake MD> Date Damion Drake MD Cosigner Signature: Date (if applicable) CC: Venancio Lui MD EMERGENCY DEPARTMENT Observed: 10/14/2017 Status: F Source: [place] SUMMARY 3:30 PM [facility] REPOSITORY [facility] Medical Records Department [address] [place] [address] Emergency Department Summary 10/13/17 1647 MR#: [id number] Acct: [id number] Name: ANGELA DRUMMOND Rep #: [id number] : 1955 61 From: Michael Diaz MD PCP: Care Physician, No Primary Status: DEP ER - ER Visit Summary Date of Service: 10/13/17 Chief Complaint: Laceration History of Present Illness: The patient is a 61 F who reports that she cut her right ring finger on a mandolin just prior to coming emergency department. She is on Plavix for a stent and is unable to get it to stop bleeding. She complains that she has a dull pain is 4 out of 10 severity. Is worsened by dependent position. Is relieved by elevating it and using cold. She denies any paresthesias. She is unsure when her last tetanus shot was. Physical Examination: Vitals: Stable. Afebrile. General: Well-nourished and well-developed. Head: Normocephalic atraumatic. Neck: Supple, no lymphadenopathy. No JVD. Nontender. Cardiovascular: Regular rate and rhythm. No murmurs. Respiratory: No respiratory distress. Clear to auscultation bilaterally. Abdominal: Soft, nontender, nondistended, normal bowel sounds. No guarding, rebound, or peritoneal signs. Back: Nontender. Extremities: Evulsion to the ulnar side of the distal phalanx of her ring finger that has bleeding from the proximal portion. This does involve a portion of her nail as well. Skin: Normal color, no rash. Neurologic: Alert and oriented 3. Cranial nerves II through XII are intact. Normal strength and sensation. Psych: Normal affect. Emergency Department Course and Treatment: With a superficial avulsion there is nothing that is amenable to be sutured. She had Gelfoam and a tube gauze dressing placed. She is instructed to leave this in place for the next 24-48 hours. Treatment Plan: Follow-up with Dr. Herrera Sabillon who is next on the list for no doc as needed. Return to the emergency department for any worsening symptoms. Disposition: To home in improved and stable condition. Impression: 1. Partial avulsion right fourth finger distal phalanx. This note was generated with [employer] dictation software. It may contain incorrect words, spelling, and punctuation that were not noted in review of the chart prior to signing ED Disposition - Plan for ED Patient: Disposition: Home or Assisted Living Chief Complaint: Laceration Instructions: ED Laceration Amputation Finger Tip Open Tx Referrals: Herrera Thomas MD [STAFF PHYSICIAN] - As Needed What to do if you have Problems For any increased pain, shortness of breath, bleeding, nausea or vomiting, chest pain, or any unexpected problems, contact your Primary Care Provider. Call [facility] ([phone]) or report to the closest Emergency Room. Call 911 if necessary. 10/14/17 1530 <Electronically signed by Michael Diaz MD> Date Michael Diaz MD Cosigner Signature (If Indicated): Date CC: No Primary Care Physician ALLERGIES ALLERGIES DATE TYPE / CODE NAME / CODE REACTION SEVERITY SOURCE 06/26/2018 Drug No Known Unknown [facility] Allergy/4160 Allergies/F00 [facility] [address](SNOMED [id number](RXNOR Repository CT) M) ENCOUNTERS ENCOUNTERS ADMIT/DISCHARGE ACCOUNT ADMITTING ENCOUNTER LOCATION SOURCE NUMBER CLASS 07/14/2018/ [id number] Ambulatory [place] [facility] 8 8 [facility] ing:ENRoom: Repository AC16 06/26/2018/ [id number] Ambulatory BMSBuilding:B [facility] 8 0 MS.WSA [facility] Repository 10/13/2017/ [id number] Emergency [place] [facility] 8 6 [facility] ing:ED Repository PAYERS PAYERS ENCOUNTER GUARANTOR PAYER SUBSCRIBER SOURCE 07/14/2018 KAELYN Ingram Primary KAELYN Ingram [place] [id number] Insurance:AULTCAREPol BURSONDOB: Community [address] icy Number: [id number] [place] [address] [id number] Repository [address]Epa: 330 e Date:9999-11-11JC [phone] () [address] [place] [phone]: 07/14/2018 Secondary NOT GIVENUNK [facility] Insurance:SELF PAY [facility] Number: Effective Repository Date:2018-06-26 06/26/[address] [facility] ANGELA JEAN [place] [id number] Insurance:AULTCAREPol BURSONDOB: Community [address] icy Number: [id number] [id number] Repository [address]Ouw: (330) e Date:1910-29-88JS [phone] () [address], [place] [address]GD: 06/26/2018 Secondary NOT GIVENUNK Adriano Insurance:SELF PAY [facility] Number: Effective Repository Date:2018-06-18 10/13/2017 ANGELA JEAN Primary AN[place]ELAV[place]ICA [place] [id number] [place] Insurance:AULTCAREPol BURSONDOB: [place], [place] icy Number: [id number] [place] [address]Fnj: 330 [id number] Repository [phone] (HP) e Date:4777-35-12UD [address], [place] [address]RA: 10/13/2017 Secondary NOT GIVENUNK Adriano Insurance:SELF PAY [facility]: Effective Repository Date:2017-10-13
== END 2018-07-14 09:50 | disposition home or self-care (01) ==
LOC: EN 07:13 → AC 07:14
PROVIDERS: Referring Provider Surgery; Visit Provider Surgery
PROC: 0DJD8ZZ Inspection of Lower Intestinal Tract, Via Natural or Artificial Opening Endoscopic (ICD-10-PCS; CPT 45378; principal; 2018-07-14 08:25)
DX: K62.5 Hemorrhage of anus and rectum (principal); K64.1 Second degree hemorrhoids; K64.4 Residual hemorrhoidal skin tags; D12.0 Benign neoplasm of cecum; K62.1 Rectal polyp; I25.2 Old myocardial infarction; E78.5 Hyperlipidemia, unspecified; E11.9 Type 2 diabetes mellitus without complications; I25.10 Atherosclerotic heart disease of native coronary artery without angina pectoris; Z95.5 Presence of coronary angioplasty implant and graft; F17.200 Nicotine dependence, unspecified, uncomplicated
CPT/HCPCS: 45385; 82962; 88305; 99152; 99153; J7120

== ENCOUNTER 2019-02-14 03:18 | Emergency (ER) | payer OTHER, SELFPAY ==
[2018-07-14 07:30] VITALS: BMI 37.5
[2019-02-14 03:18] VITALS: BP 153/72; PULSE 94; RESP 20; TEMP 36.5; O2SAT 98; BMI 39.6
--- NOTE | 2019-02-14 03:27 | ED.DCSUM_ITS ---
- ER Visit Summary Date of Service: 02/14/19 Chief Complaint: Abdominal pain History of Present Illness: The patient is a 63 F who presents with suprapubic abdominal pain. This started about 8:00 yesterday morning. She also has multiple lower urinary symptoms. She complains of dysuria and hematuria. She complains of frequency and urgency. She states that she cannot pee however she last voided just a couple of hours ago. Although triage note mentions flank pain, I asked patient multiple times and she denies any back or flank pain. No fevers chest pain shortness of breath nausea vomiting. Physical Examination: Afebrile blood pressure 153/72 vitals otherwise normal Moist mucous membranes Heart regular rate and rhythm Lungs are clear Abdomen soft with suprapubic tenderness without guarding without rebound Alert Test Results: Urinalysis shows 100 leukocyte esterase, positive nitrates, 250 blood, greater than 100 RBCs but 0-5 WBCs and 0 bacteria. CBC BMP notable only for glucose 217. CT the flank shows a 2 mm stone in the left kidney no ureter olithiasis Emergency Department Course and Treatment: Bladder scan showed about 400 cc in the bladder. A Humphrey was placed. Initially symptoms are most suggestive of cystitis. While urinalysis is potentially consistent with that given that no bacteria were seen I was concerned about possible alternative pathologies including a distal ureteral calculus. Labs and CT were obtained. There is no ureteral calculus. Urine culture was sent. We will treat as cystitis. Patient was given a prescription for Pyridium and Bactrim. She understands to return for new or worsening symptoms. She should follow-up with her primary care physician. She was discharged. She was given Pyridium here with significant relief of symptoms. Treatment Plan: [] Disposition: Discharge Impression: Cystitis This note was generated with [employer] dictation software. It may contain incorrect words, spelling, and punctuation that were not noted in review of the chart prior to signing ED Disposition - Plan for ED Patient: Referrals: Orestes Cárdenas MD [Primary Care Provider] -
[2019-02-14 03:52] LABS: Bacteria 0 SEEN /hpf (None Seen); Mucous, Urine 0 SEEN /hpf (<or=2+)
[2019-02-14 04:01] LABS: Color, Urine Red (Yellow); Glucose, Dipstick 100 mg/dl (Normal); Ketone-Dipstick 5 mg/dl (Negative); Leukocyte Esterase-Dipstick 100 /ul (Negative); Nitrite-Dipstick Positive (Negative); Occult Blood-Urine 250 /ul (Negative); Protein-Dipstick 100 mg/dl (Negative); Urine Bilirubin Dipstick Negative (Negative); Urine Clarity Cloudy (Clear); Urine Urobilinogen 1 mg/dl (Normal)
[2019-02-14] MEDS: Phenazopyridine 95 MG Tablet 190 MG PO (04:01)
[2019-02-14 04:16] LABS: Amorphous Sediment 1+; Red Blood Cells-Urine > 100 SEEN /hpf (0-5); Squamous Epithelial Cells - UA 0 SEEN /hpf (5-10); White Blood Cells 0-5 SEEN /hpf (0-5)
--- NOTE | 2019-02-14 04:18 | CT_ITS ---
STUDY: CT ABDOMEN AND PELVIS WITHOUT CONTRAST REASON FOR EXAM: Female, 63 years old. Left flank pain RADIATION DOSAGE (If Supplied By Facility): CTDIvol = ( 19.63 ) mGy, DLP = ( 912.24 ) mGycm TECHNIQUE: Transaxial images were obtained from the dome of the diaphragm to the symphysis pubis without oral contrast, and without intravenous contrast. Sagittal and coronal images were reconstructed. Individualized dose optimization techniques were used for this CT. COMPARISON: None. FINDINGS: The visualized lung bases are unremarkable. The visualized portions of the heart are within normal limits. Normal liver. Normal spleen. Normal pancreas. Normal bilateral adrenal glands. Normal right kidney. There is 2 mm stone in left kidney without hydronephrosis. No ureter stones are seen. Normal visualized stomach. Normal small intestine. Normal colon. There is non-visualization of the appendix. There is diffuse atherosclerotic calcification of the abdominal aorta, without a demonstrated aneurysm. Normal inferior vena cava. Normal retroperitoneum. Normal urinary bladder. Normal abdominal wall. There are diffuse degenerative changes of the visualized lumbar spine. CT/Abdomen/Pelvis without Cont IMPRESSION: There is 2 mm stone in left kidney without hydronephrosis. No ureter stones are seen. Electronically Signed: Klever Patel, at 5:07 EDT Tel , Service support ,
[2019-02-14 04:30] LABS: Absolute Lymphocyte Count 1.78 X10^3/ul (0.83-4.51); Absolute Neutrophil Count 6.9 X10^3/uL (2.0-7.7); Basophil# 0.02 X10^3/uL; Basophil% 0.2 % (0-1); Eosinophil# 0.11 X10^3/uL; Eosinophils% 1.1 % (0-5); Hematocrit 38.6 % (37-47); Hemoglobin 13.4 g/dl (12.0-15.0); Lymphocyte # 1.78 X10^3/ul (4.0); Lymphocyte % 18.4 % (19-41); Mean Corp Hgb Conc 34.7 g/gl (32-36); Mean Corpuscular Hgb 32.8 pg (27.0-32.0); Mean Corpuscular Volume 94.4 fL (81-99); Mean Platelet Vol. 9.5 fl (6.2-12.0); Monocyte# 0.82 X10^3/uL; Monocyte% 8.5 % (0-10); Neutrophil # 6.87 X10^3/uL (2.7-7.7); Neutrophil % 71.3 % (47-70); Platelet Count 263 K/mm3 (150-450); RBC Distribution Width CV 13.4 % (11.6-14.6); RBC Distribution Width SD 44.5 fl (35.1-43.9); Red Blood Count 4.09 M/mm3 (4.2-5.4); White Blood Count 9.7 K/mm3 (4.4-11.0)
[2019-02-14 04:31] LABS: POSITIVE COUNT NO; POSITIVE DIFFERENTIAL NO; POSITIVE MORPHOLOGY NO
[2019-02-14 04:42] LABS: Anion Gap 9 (5-15); BUN 15 mg/dL (7-18); BUN/Creat Ratio 21.3 RATIO (10-20); Calcium,Total 8.8 mg/dL (8.5-10.1); Chloride 104 mmol/L (98-107); EST Glomerular Filtration Rate 89 mL/min (>60); Est Glom Filt Rate - Afr Amer 108 mL/min (>60); Estimated Creatinine Clearance 61.27 ml/min; Glucose 217 mg/dL (74-106); Potassium 4.1 mmol/L (3.5-5.1); Sodium Level 137 mmol/L (136-145)
--- NOTE | 2019-02-14 05:24 | ED.DEP ---
ED Disposition - Plan for ED Patient: Instructions: Urinary Tract Infections in Women Prescriptions: Smz/Tmp Ds [Bactrim Ds] 1 tab PO BID #14 tab Prescription Printed Phenazopyridine HCl [Pyridium] 200 mg PO TID #6 tab Prescription Printed Referrals: Orestes Cárdenas MD [Primary Care Provider] -
--- NOTE | 2019-02-14 05:39 | ED.DEP ---
ED Disposition - Plan for ED Patient: Instructions: Urinary Tract Infections in Women, URINARY RETENTION, Female Prescriptions: Smz/Tmp Ds [Bactrim Ds] 1 tab PO BID #14 tab Prescription Printed Phenazopyridine HCl [Pyridium] 200 mg PO TID #6 tab Prescription Printed Referrals: Orestes Cárdenas MD [Primary Care Provider] - Jennifer Luo MD [STAFF PHYSICIAN] -
[2019-02-14] MEDS: Smz/Tmp Ds Tablet 1 TABLET PO (05:50)
[2019-02-14 06:00] VITALS: BP 146/74; PULSE 86; RESP 16; O2SAT 97
== END 2019-02-14 06:08 | disposition home or self-care (01) ==
PROVIDERS: Emergency Provider Emergency Medicine; Family Provider Family Medicine; PCP Family Medicine
DX: N30.90 Cystitis, unspecified without hematuria (principal); R33.9 Retention of urine, unspecified; E11.9 Type 2 diabetes mellitus without complications; I10 Essential (primary) hypertension; E78.00 Pure hypercholesterolemia, unspecified; I25.10 Atherosclerotic heart disease of native coronary artery without angina pectoris; Z72.0 Tobacco use
CPT/HCPCS: 51702; 74176; 80048; 81001; 85025; 87086; 99285; A4216

== ENCOUNTER 2019-02-20 07:52 | Emergency (ER) | payer OTHER, SELFPAY ==
[2019-02-20 07:55] VITALS: BP 156/81; PULSE 79; RESP 18; TEMP 36.3; O2SAT 98; BMI 36.8
[2019-02-20 08:34] LABS: Mucous, Urine 0 SEEN /hpf (<or=2+); Squamous Epithelial Cells - UA 0 SEEN /hpf (5-10); White Blood Cells 0 SEEN /hpf (0-5)
[2019-02-20 08:43] LABS: Color, Urine Yellow (Yellow); Glucose, Dipstick Normal (Normal); Ketone-Dipstick Negative (Negative); Leukocyte Esterase-Dipstick 25 /ul (Negative); Nitrite-Dipstick Negative (Negative); Occult Blood-Urine 250 /ul (Negative); Protein-Dipstick Negative (Negative); Specific Gravity, Urine 1.015 (1.002-1.030); Urine Bilirubin Dipstick Negative (Negative); Urine Clarity Clear (Clear); Urine Urobilinogen Normal (Normal)
--- NOTE | 2019-02-20 08:47 | NURSING ---
0[address] GREEN [address] CARLOS GREEN
[2019-02-20 08:59] LABS: Bacteria RARE /hpf (None Seen); Red Blood Cells-Urine > 100 SEEN /hpf (0-5)
--- NOTE | 2019-02-20 09:03 | ED.VISSUMM ---
- ER Visit Summary Date of Service: 02/20/19 Chief Complaint: [Urinary retention] History of Present Illness: The patient is a 63 F [presents to the emergency department with complaint of being unable to completely void urine. She had a similar issue about a week ago and was seen in the emergency department which time she had a Humphrey catheter placed. Patient subsequently followed up with her urologist who ordered a CT scan of the abdomen and pelvis which was essentially unremarkable. Patient had a urinalysis and culture which were negative. Patient had Humphrey catheter removed couple of days ago and she was able to void yesterday although she did not feel completely normally. Patient since around 11 PM last night is been having a hard time completely emptying her bladder and is only able to get small amounts out frequently. Denies any fever. She has had no vomiting or diarrhea.] Physical Examination: [HEENT-PERRLA, EOMI. Cranial nerves II through XII grossly intact. TMs clear. Mucous membranes moist. No adenopathy. Cardiovascular-regular rate and rhythm without murmur or ectopy Lungs-clear to auscultation, chest wall stable without crepitus or subcu emphysema Abdomen-normoactive bowel sounds, soft. Patient has some mild suprapubic tenderness to palpation. There is no rebound, rigidity, cranial signs. Extremities-intact ?4, normal range of motion, normal pulses, atraumatic] Test Results: [Bladder scan obtained showed 450 cc of urine. Patient was able to void about 30 cc which did not show signs of infection although she had greater than 100 RBCs.] Emergency Department Course and Treatment: [I attempted to contact her urologist however at this time not been able to get a hold of the urologist. Patient will have a Humphrey catheter placed.] Treatment Plan: [Follow-up with urology in 2 days as patient has a scheduled cystoscopy.] Disposition: [Discharged home in stable condition. Patient advised to return if fever, vomiting, worsening pain, or conditions worsen anyway.] Impression: [Urinary retention] This note was generated with [employer] dictation software. It may contain incorrect words, spelling, and punctuation that were not noted in review of the chart prior to signing ED Disposition - Plan for ED Patient: Referrals: Care Physician,No Primary [Primary Care Provider] -
--- NOTE | 2019-02-20 09:03 | NURSING ---
DR LANGE PAGED
--- NOTE | 2019-02-20 09:05 | ED.DEP ---
ED Disposition - Plan for ED Patient: Instructions: URINARY RETENTION, Female Referrals: Care Physician,No Primary [Primary Care Provider] - Jennifer Luo MD [STAFF PHYSICIAN] - 2 Days
[2019-02-20 09:40] VITALS: BP 138/76; PULSE 67; RESP 15
== END 2019-02-20 10:26 | disposition home or self-care (01) ==
LOC: ED 08:19
PROVIDERS: Emergency Provider Emergency Medicine
DX: R33.9 Retention of urine, unspecified (principal); I25.10 Atherosclerotic heart disease of native coronary artery without angina pectoris; E11.9 Type 2 diabetes mellitus without complications; E78.00 Pure hypercholesterolemia, unspecified; Z72.0 Tobacco use
CPT/HCPCS: 51702; 81001; 99283

== ENCOUNTER → 2019-08-16 13:26 | Outpatient (CLI) | payer OTHER, SELFPAY ==
[2019-07-21 12:29] VITALS: BMI 38.0
--- NOTE | 2019-08-16 13:27 | ECHOD_ITS ---
Reason For Study: CAD/ PRE-OP Procedure This was a 2D Doppler, Color Flow transthoracic echocardiogram. The study was technically difficult. Exam performed in department. Left Ventricle Normal LV size. Left ventricular systolic function is normal. The estimated ejection fraction is 60 %. Stage 1 diastolic dysfunction. No regional wall motion abnormalities noted. Right Ventricle Normal RV size. Normal systolic function. Atria Normal left atrium. Normal right atrium. Mitral Valve Normal mitral valve. Tricuspid Valve Normal tricuspid valve. Mild (1+) tricuspid valve insufficiency. Pulmonary artery systolic pressure is 38 mmHg. Aortic Valve Normal aortic valve. Pulmonic Valve The pulmonic valve is not well visualized. Great Vessels Normal aortic root. The pulmonary artery is normal size. Normal inferior vena cava. Pericardium/Pleural No pericardial effusion. MMode/2D Measurements & Calculations LVIDd: 4.4 cm IVSd: 1.1 cm Ao root diam: 3.3 cm LVIDs: 2.8 cm LVPWd: 1.1 cm RVDd: 2.8 cm FS: 36.9 % LAV(MOD-bp): 32.8 ml LA A4 area: 14.1 cm2 LA dimension(2D): 4.4 cm LAV(MOD-bp) Indexed: 17.2 ml/m2 LAV(MOD-sp2): 33.5 ml LAV(MOD-sp4): 32.2 ml RA A4 area: 13.8 cm2 Time Measurements MV dec time: 0.23 sec Doppler Measurements & Calculations MV E max dominick: 73.7 cm/sec Lat Peak E' Dominick: 7.7 cm/sec Med Peak E' Dominick: 8.0 cm/sec MV A max dominick: 89.9 cm/sec E/E' lat: 9.5 E/E' med: 9.2 MV E/A: 0.82 Ao V2 max: 217.5 cm/sec AI max dominick: 429.9 cm/sec LV V1 max: 150.6 cm/sec Ao max P.0 mmHg AI max P.9 mmHg LV V1 max P.1 mmHg AI dec slope: 238.0 cm/sec2 AI P1/2t: 529.0 msec PA V2 max: 138.7 cm/sec TR max dominick: 291.5 cm/sec TR max P.0 mmHg Interpretation Summary Normal LV size. Left ventricular systolic function is normal. The estimated ejection fraction is 60 %. Stage 1 diastolic dysfunction. Mild (1+) tricuspid valve insufficiency. Ordering Physician: Eder Davis Referring Physician: Eder Davis Performed By: Kristin Almendarez, RDCS, RVT
== END ==
PROVIDERS: Referring Provider Internal Medicine Cardiovascular Disease; Visit Provider Internal Medicine Cardiovascular Disease
DX: Z01.810 Encounter for preprocedural cardiovascular examination (principal); I10 Essential (primary) hypertension; I25.10 Atherosclerotic heart disease of native coronary artery without angina pectoris; Z95.5 Presence of coronary angioplasty implant and graft
CPT/HCPCS: 93306

== ENCOUNTER → 2019-08-20 12:20 | Outpatient (CLI) | payer OTHER, SELFPAY ==
[2019-07-21 12:29] VITALS: BMI 38.0
--- NOTE | 2019-08-20 12:21 | STEWCON_ITS ---
Reason For Study: CAD/ASHD Stress Results Protocol: Dobtuamine Stress Echo Maximum Predicted HR: 156 bpm Target HR: 133 bpm % Maximum Predicted HR: 75 % DurationHeart Rate Stage (mm:ss) (bpm) BP Dose Comment baseline 62 148/76 5ml total definity given stage 1 4:09 85 187/8810.00 stage 2 3:00 117 188/8820.00 stage 3 2:31 116 212/7930.00mild chest tightness recovery 80 151/77 Stress Duration: 9:40 mm:ss Maximum Stress HR: 117 bpm Baseline Echocardiogram Findings Stress Echo Wall motion Data Resting WM Intermediate WM Stress WM Interpretation Summary Dobutamine stress echocardiogram. Stress protocol: Resting EKG demonstrates sinus rhythm with a rate of 61 bpm normal intervals are noted resting blood pressures 148/76 mmHg. Dobutamine was infused starting at 10 mcg/kg/min increasing to a peak of 30 mcg/kg/min. The maximum heart rate attained was 125 bpm which was 80% of maximum predicted heart rate. The resting blood pressures 148/76 mmHg. The patient initially maintained sinus rhythm with occasional premature ventricular complex noted. A 30 mcg/kg/min of dobutamine infusion the patient appeared to have developed a rate dependent right bundle branch block with a rate of approximately 120 bpm. There were no ST or T wave changes noted suggest ischemia. This however necessitated discontinuation of the dobutamine infusion with normalization of the QRS. The resting blood pressures 148/76 with a peak blood pressure of 212/79 mmHg. Dobutamine echocardiogram. Dobutamine echocardiographic images were obtained with and without Definity enhancement. At rest the estimated ejection fraction was 65%. At low-dose and at peak there was no chamber obliteration. No obvious wall motion abnormalities were noted to suggest ischemia. The patient however did develop mild chest tightness of questionable significance. All the alas appear to augment normally. Conclusion: Dobutamine stress echocardiogram with no wall motion abnormalities to suggest ischemia. Rate dependent bundle branch block noted Ordering Physician: Eder Davis Referring Physician: Eder Davis Performed By: Ed Cooper RCS
== END ==
PROVIDERS: Referring Provider Internal Medicine Cardiovascular Disease; Visit Provider Internal Medicine Cardiovascular Disease
DX: I25.10 Atherosclerotic heart disease of native coronary artery without angina pectoris (principal); I10 Essential (primary) hypertension; I73.9 Peripheral vascular disease, unspecified; E78.5 Hyperlipidemia, unspecified; F17.200 Nicotine dependence, unspecified, uncomplicated; R06.09 Other forms of dyspnea; Z95.5 Presence of coronary angioplasty implant and graft
CPT/HCPCS: 93017; 93350; J7040; Q9957; A4216; C8928

== ENCOUNTER → 2019-08-23 09:18 | Outpatient (CLI) | payer OTHER, SELFPAY ==
[2019-07-21 12:29] VITALS: BMI 38.0
--- NOTE | 2019-08-23 09:20 | ART_ITS ---
Reason For Study: Claudication Procedure A bilateral lower extremity continuous wave Doppler with analog waveform analysis,segmental pressures,and ankle brachial indexes with exercise. Left Segmental Pressures Left brachial= 161mmHg. Left thigh = NCmmHg. Left calf = 99mmHg. Left posterior tibial artery = 101mmHg. Left dorsalis pedis artery = 104mmHg. Left digit = 60 mmHg. The left dorsalis pedis waveforms are monophasic. The left posterior tibial artery waveforms are monophasic. Right Segmental Pressures Right brachial= 159mmHg. Right thigh = 113mmHg. Right calf = 89mmHg. Right posterior tibial artery = 105mmHg. Right dorsalis pedis artery = 103mmHg. Right digit = 59 mmHg. The right dorsalis pedis waveforms are monophasic. The right posterior tibial artery waveforms are monophasic. Indices The right ankle brachial index by the dorsalis pedis is 0.64. The right ankle brachial index by the posterior tibial artery is 0.65. The right digital-brachial index is 0.37. The right post exercise ankle brachial index is 0.26. The left ankle brachial index by the dorsalis pedis is 0.65. The left ankle brachial index by the posterior tibial artery is 0.63. The left digital-brachial index is 0.37. The left post exercise ankle brachial index is 0.18. Interpretation Summary Moderately severe bilateral lower extremity arterial occlusive disease. Abnormal bilateral low thigh indices and waveforms suggest aortic/ileofemoral occlusive disease bilaterally Very abnormal bilateral lower extremity exercise indices with failure of recovery by 9 minutes. Ordering Physician: Damion Drake Performed By: Loida Oliver RVT
== END ==
PROVIDERS: Referring Provider Surgery; Visit Provider Surgery
DX: I73.9 Peripheral vascular disease, unspecified (principal)
CPT/HCPCS: 93924

== ENCOUNTER → 2019-09-06 07:45 | Outpatient (CLI) | payer OTHER, SELFPAY ==
[2019-08-27 12:47] VITALS: BMI 36.8
[2019-08-31 09:18] LABS: Hemoglobin A1c 7.4 % (4.2-6.3)
[2019-08-31 09:43] LABS: Cholesterol 97 mg/dL (200); High Density Lipoprotein 35 mg/dL; Triglycerides 194 mg/dL; Very Low Density Lipoprotein 39 mg/dL (5-40)
--- NOTE | 2019-09-06 07:45 | CDU_ITS ---
Reason For Study: bruit Rt. Velocities/BP Lt. Velocities/BP Prox CCA 103.4/17.3 cm/sec. Prox CCA 98.4/19.9 cm/sec. Mid CCA 82.6/18.6 cm/sec. Mid CCA 68.7/18.3 cm/sec. Dist CCA 72.9/14.2 cm/sec. Dist CCA 59.2/14.2 cm/sec. Prox ICA 61.4/19.7 cm/sec. Prox ICA 89.5/35.5 cm/sec. Mid ICA 72.4/24.1 cm/sec. Mid ICA 109.4/38.2 cm/sec. Dist ICA 117.4/41.3 cm/sec. Dist ICA 84.6/26.9 cm/sec. Rt. ICA/CCA = 117.4/103.4=1.1. Lt. ICA/CCA = 109.4/98.4=1.1. Prox ECA 112.9/11.2 cm/sec. Prox ECA 124.0/19.9 cm/sec. Rt. Vert. 47.2/15.3 cm/sec. Lt. Vert. 101.4/27.8 cm/sec. Right Extracranial There is heterogeneous, irregular atherosclerotic plaque noted in the right common carotid artery. There is heterogeneous, irregular atherosclerotic plaque noted in the right internal carotid artery. The atherosclerotic plaque causes acoustic shadowing. There is homogeneous, smooth atherosclerotic plaque noted in the right external carotid artery. Antegrade flow is noted in the right vertebral artery. Left Extracranial There is homogeneous, smooth atherosclerotic plaque noted in the left common carotid artery. There is homogeneous, smooth atherosclerotic plaque noted in the left internal carotid artery. There is homogeneous, smooth atherosclerotic plaque noted in the left external carotid artery. Antegrade flow is noted in the left vertebral artery. Interpretation Summary Irregular plague right common carotid, internal carotid and external carotid arteries <50% stenosis right internal carotid <50% stenosis right external carotid Smooth plague in the left common carotid, internal carotid, and external carotid arteries <50% stenosis left internal carotid <50% stenosis left external carotid Patent, antegrade bilateral vertebrals. Ordering Physician: Damion Drake Referring Physician: ALCIRA PCP Performed By: Verenice Daly, ROGER, RVT
--- NOTE | 2019-09-06 07:47 | ADU_ITS ---
Reason For Study: PAD Right Velocities Left Velocities Common Iliac Artery, dist = 292.6 cm./sec. Common Iliac Artery, dist = 216.8 cm./sec. Common Femoral Artery, mid = 206.1 cm./sec. Common Femoral Artery, mid = 133.0 cm./sec. Supf Femoral Artery, prox = 109.4 cm./sec. Supf. Femoral Artery, prox = 114.3 cm./sec. Supf Femoral Artery, mid = 80.2 cm./sec. Supf. Femoral Artery, mid = 29.9 cm./sec. Supf Femoral Artery, dist. = 38.6 cm./sec. Supf. Femoral Artery, dist = 37.4 cm./sec. Profunda Femoral Artery = 102.1 cm./sec. Profunda Femoral Artery = 62.2 cm./sec. Popliteal Artery, prox. = 40.5 cm./sec. Popliteal Artery, proximal, = 26.8 cm./sec. Popliteal Artery, mid = 30.4 cm./sec. Popliteal Artery, mid = 20.4 cm./sec. Popliteal Artery, dist = 27.8 cm./sec. Popliteal Artery, distal = 27.5 cm./sec. Post. Tibial Artery, prox = 28.7 cm./sec. Post. Tibial Artery, prox = 25.0 cm./sec. Post. Tibial Artery, mid = 17.6 cm./sec. Post Tibial Artery, mid = 54.3 cm./sec. Post. Tibial Artery, dist = 20.6 cm./sec. Post Tibial Artery, dist. = 14.6 cm./sec. Peroneal Artery, prox = 10.7 cm./sec. Peroneal Artery, prox = 15.6 cm./sec. Peroneal Artery, mid = 14.1 cm./sec. Peroneal Artery, mid = 27.0 cm./sec. Peroneal Artery,dist = 12.6 cm./sec. Peroneal Artery,dist. = 17.4 cm./sec. Ant. Tibial Artery, prox = 16.3 cm./sec. Ant.Tibial Artery, prox = 15.6 cm./sec. Ant. Tibial Artery, mid = 8.6 cm./sec. Ant Tibial Artery, mid = 8.6 cm./sec. Ant. Tibial Artery, dist = 8.2 cm./sec. Ant. Tibial Artery, distal = 0.0 cm./sec. Procedure Exam performed in department. Interpretation Summary Elevated velocity right external iliac artery and right common femoral artery Diffuse disease noted throughout the right lower extremity vessels No doubling of velocities identified but diminished flow velocity noted in the distal right superficial femoral artery and popliteal artery and posterior tibial artery and peroneal artery and anterior tibial arteries 50 to 99% stenosis right mid and distal superficial femoral artery with diminished flow distally Elevated velocity left external iliac artery. Diminished velocity left mid to distal superficial femoral artery and popliteal and posterior tibial and peroneal and anterior tibial arteries 50 to 99% stenosis left mid and distal superficial femoral artery with diminished flow distally Sluggish left popliteal venous flow noted Ordering Physician: Damion Drake Referring Physician: NO PCP Performed By: Verenice Daly, ROGER, RVT
== END ==
PROVIDERS: Referring Provider Surgery; Visit Provider Surgery
DX: R09.89 Other specified symptoms and signs involving the circulatory and respiratory systems (principal); I73.9 Peripheral vascular disease, unspecified; E11.9 Type 2 diabetes mellitus without complications; E78.5 Hyperlipidemia, unspecified
CPT/HCPCS: 36415; 80061; 83036; 93880; 93925

== ENCOUNTER → 2019-09-17 10:53 | Outpatient (CLI) | payer OTHER, SELFPAY ==
[2019-08-27 13:26] VITALS: BMI 38.0
[2019-09-17 10:56] LABS: Bacteria 0 SEEN /hpf (None Seen); Mucous, Urine 0 SEEN /hpf (<or=2+); Red Blood Cells-Urine 0 SEEN /hpf (0-5); White Blood Cells 0 SEEN /hpf (0-5)
[2019-09-17 12:30] LABS: Absolute Lymphocyte Count 2.43 X10^3/uL (0.83-4.51); Absolute Neutrophil Count 4.3 X10^3/uL (2.0-7.7); Basophil# 0.04 X10^3/uL; Basophil% 0.5 % (0-1); Eosinophil# 0.13 X10^3/uL; Eosinophils% 1.7 % (0-5); Hematocrit 42.7 % (37-47); Hemoglobin 13.8 g/dL (12.0-15.0); Lymphocyte # 2.43 X10^3/ul (4.0); Lymphocyte % 31.9 % (19-41); Mean Corp Hgb Conc 32.3 g/dL (32-36); Mean Corpuscular Hgb 31.2 pg (27.0-32.0); Mean Corpuscular Volume 96.4 fL (81-99); Mean Platelet Vol. 9.7 fl (6.2-12.0); Monocyte# 0.68 X10^3/uL; Monocyte% 8.9 % (0-10); NRBC Flagged by Analyzer 0 % (0-5); Neutrophil # 4.32 X10^3/uL (2.7-7.7); Neutrophil % 56.7 % (47-70); Platelet Count 285 K/mm3 (150-450); RBC Distribution Width CV 13.2 % (11.6-14.6); RBC Distribution Width SD 47.2 fl (35.1-43.9); Red Blood Count 4.43 M/mm3 (4.2-5.4); White Blood Count 7.6 K/mm3 (4.4-11.0)
[2019-09-17 12:50] LABS: Color, Urine Yellow (Yellow); Glucose, Dipstick Normal (Normal); Ketone-Dipstick Negative (Negative); Leukocyte Esterase-Dipstick Negative /ul (Negative); Nitrite-Dipstick Negative (Negative); Occult Blood-Urine Negative /ul (Negative); Protein-Dipstick Negative (Negative); Urine Bilirubin Dipstick Negative (Negative); Urine Clarity Sl. Cloudy (Clear); Urine Urobilinogen Normal (Normal)
[2019-09-17 12:57] LABS: Squamous Epithelial Cells - UA 0-5 SEEN /hpf (5-10)
[2019-09-17 13:16] LABS: ALB/GLOB Ratio 0.9 RATIO (0.9-2.4); AST(SGOT) 19 U/L (15-37); Alanine Aminotransfer ALT/SGPT 34 U/L (13-56); Albumin, Serum 3.5 g/dL (3.2-5.0); Alkaline Phosphatase 67 U/L (45-117); BUN 14 mg/dL (7-18); BUN/Creat Ratio 21.4 RATIO (10-20); Calcium,Total 9.3 mg/dL (8.5-10.1); Chloride 108 mmol/L (98-107); Creatinine, Serum 0.65 mg/dL (0.55-1.02); EST Glomerular Filtration Rate 97 mL/min (>60); Est Glom Filt Rate - Afr Amer 117 mL/min (>60); Glucose 184 mg/dL (74-106); Potassium 4.3 mmol/L (3.5-5.1); Protein, Total 7.5 g/dL (6.4-8.2); Sodium Level 139 mmol/L (136-145)
[2019-09-17 13:17] LABS: Anion Gap 5 (5-15); Microalbumin,Random Urine 7.4 mg/L (NO RANGE EST.); Microalbumin:Creatinine Ratio 10.1 mg/g CRE (<30 mg/g CRE); Thyroid Stim Hormone (TSH) 1.87 uIU/mL (0.358-3.74)
== END ==
PROVIDERS: PCP Family Medicine; Referring Provider Family Medicine; Visit Provider Family Medicine
DX: I10 Essential (primary) hypertension (principal); E11.9 Type 2 diabetes mellitus without complications
CPT/HCPCS: 36415; 80053; 81001; 82043; 82570; 84443; 85025

== ENCOUNTER → 2020-01-31 07:38 | Outpatient (CLI) | payer MEDICARE, SELFPAY ==
[2020-01-21 08:55] VITALS: BMI 35.4
[2020-01-31 07:47] LABS: Bacteria 0 SEEN /hpf (None Seen); Mucous, Urine 0 SEEN /hpf (<or=2+); Red Blood Cells-Urine 0 SEEN /hpf (0-5); White Blood Cells 0 SEEN /hpf (0-5)
[2020-01-31 10:01] LABS: Absolute Lymphocyte Count 2.13 X10^3/uL (0.83-4.51); Absolute Neutrophil Count 4.5 X10^3/uL (2.0-7.7); Basophil# 0.04 X10^3/uL; Basophil% 0.5 % (0-1); Eosinophil# 0.12 X10^3/uL; Eosinophils% 1.6 % (0-5); Hematocrit 39.6 % (37-47); Hemoglobin 12.2 g/dL (12.0-15.0); Lymphocyte # 2.13 X10^3/ul (4.0); Lymphocyte % 27.8 % (19-41); Mean Corp Hgb Conc 30.8 g/dL (32-36); Mean Corpuscular Hgb 29.5 pg (27.0-32.0); Mean Corpuscular Volume 95.9 fL (81-99); Mean Platelet Vol. 9.5 fl (6.2-12.0); Monocyte# 0.79 X10^3/uL; Monocyte% 10.3 % (0-10); NRBC Flagged by Analyzer 0 % (0-5); Neutrophil % 58.8 % (47-70); Platelet Count 352 K/mm3 (150-450); RBC Distribution Width SD 52.8 fl (35.1-43.9); Red Blood Count 4.13 M/mm3 (4.2-5.4); White Blood Count 7.7 K/mm3 (4.4-11.0)
[2020-01-31 10:01] LABS: Color, Urine Yellow (Yellow); Glucose, Dipstick 1000 mg/dl (Normal); Ketone-Dipstick Negative (Negative); Leukocyte Esterase-Dipstick Negative /ul (Negative); Nitrite-Dipstick Negative (Negative); Occult Blood-Urine Negative /ul (Negative); Protein-Dipstick Negative (Negative); Urine Bilirubin Dipstick Negative (Negative); Urine Clarity Sl. Cloudy (Clear); Urine Urobilinogen Normal (Normal); Urine pH 6.5 (5.0 - 8.0)
[2020-01-31 10:07] LABS: Squamous Epithelial Cells - UA 0-5 SEEN /hpf (5-10)
[2020-01-31 10:20] LABS: Hemoglobin A1c 7.2 % (3.8-5.6)
[2020-01-31 10:26] LABS: ALB/GLOB Ratio 0.9 RATIO (0.9-2.4); AST(SGOT) 20 U/L (15-37); Alanine Aminotransfer ALT/SGPT 25 U/L (13-56); Albumin, Serum 3.5 g/dL (3.2-5.0); Alkaline Phosphatase 79 U/L (45-117); Anion Gap 8 (5-15); BUN 10 mg/dL (7-18); BUN/Creat Ratio 15.3 RATIO (10-20); Calcium,Total 8.6 mg/dL (8.5-10.1); Chloride 105 mmol/L (98-107); Cholesterol 86 mg/dL (200); Creatinine, Serum 0.65 mg/dL (0.55-1.02); EST Glomerular Filtration Rate 97 mL/min (>60); Est Glom Filt Rate - Afr Amer 117 mL/min (>60); Globulin 3.7 g/dL (2.2-4.2); Glucose 141 mg/dL (74-106); High Density Lipoprotein 41 mg/dL; Potassium 4.2 mmol/L (3.5-5.1); Protein, Total 7.2 g/dL (6.4-8.2); Sodium Level 138 mmol/L (136-145); Triglycerides 120 mg/dL; Very Low Density Lipoprotein 24 mg/dL (5-40)
== END ==
PROVIDERS: PCP Family Medicine; Referring Provider Family Medicine; Visit Provider Family Medicine
DX: I10 Essential (primary) hypertension (principal); E11.9 Type 2 diabetes mellitus without complications; F17.200 Nicotine dependence, unspecified, uncomplicated; E78.5 Hyperlipidemia, unspecified
CPT/HCPCS: 36415; 80053; 80061; 81001; 83036; 85025

== ENCOUNTER 2020-02-25 11:10 | Day surgery (SDC) | payer MEDICARE, SELFPAY ==
[2020-01-21 08:55] VITALS: BMI 35.4
[2020-02-25] VITALS (8 sets, daily range): BP systolic 91–134; BP diastolic 43–62; PULSE 63–75; RESP 16–18; TEMP 36.1–36.3; O2SAT 91–98; BMI 33.9
[2020-02-25] MEDS: Lactated Ringers 1,000 ML 100 ML IV ×2 (11:57→16:05)
[2020-02-25 12:05] LABS: Bedside Glucose 133 mg/dL (70-110)
--- NOTE | 2020-02-25 12:55 | URE_PTH ---
PATIENT: KAELYN DRUMMOND LOC: [facility] [place] U#:[id number] AGE/SX: 64/F ROOM: RE02/25/[address]: Dr. Nazario Lundy MD : 1955 BED: DIS: 02/25/2020 SPEC #: [id number] RECD: 02/25/20 15:39 STATUS: VALERIO REHernan #: [id number] YRDER: 02/25/20 12:[address]: Nazario Lundy DEPT: SURGICAL PATHOLOGY RECD BY: Casper Maki ENTERED: 02/28/20 09:01 SP TYPE: URETER BX OTHR DR: Dr. Ludwin Christianson MD Tissues: Ureter, NOS Procedures: Surgery Specimen Level IV HEADER OPERATION: Cysto, excision, removal urethral diverticulum PRE-OP DIAGNOSIS: Urethral diverticulum TISSUE SUBMITTED: Urethral diverticulum MICROSCOPIC DIAGNOSIS Urethral diverticulum, excision: A piece of squamous mucosa with underlying fibromuscular tissue, consistent with diverticulum with focal mild chronic inflammation. CAMILA:adrienne 02/29/20 MICROSCOPIC DESCRIPTION Slides are reviewed. GROSS DESCRIPTION Received in fixative is one container labeled with the patient's name and designated urethral diverticulum. The specimen consists of an open saccular structure measuring 3.5 x 2 x 0.8 cm. Serial sections do not reveal mass lesions. The specimen is sectioned and totally submitted in two cassettes. / AM:adrienne 02/28/20 TC:5 CPT: 00651
[2020-02-25] MEDS: Cefazolin 2 GM in 0.9% Normal Saline 100 ML IV (13:39)
--- NOTE | 2020-02-25 15:06 | PCM.HP.STD ---
History of Present Illness Date of Admission: 02/25/20 Chief Complaint: Urethral diverticulum The patient is a 64 year old female who presented with an inflamed swollen urethral diverticulum several months ago this is now settled down but it still the diverticulum was given her issues with frequency pain and discomfort she was going to have it excised in [place] bite at that time with a virus she canceled her surgery and then wanted to have the surgery done locally so I saw her in the office for consultation she had an MRI that demonstrated a urethral diverticulum below the urethra extending up on the patient's right side. So today we can proceed with excision of urethral diverticulum. Past Medical History Past Medical History (Chronic Problems): Chronic Problems (Last Reviewed 01/21/20 @ 09:40 by DENISE Garzon) Atherosclerosis of coronary artery of [place] heart without angina pectoris (Chronic) History of coronary artery stent placement (Chronic 10/10/15) [id number] LCx w/ 3.0 x 12 mm Promus Premier Stent 10/10/15 Essential (primary) hypertension (Chronic) Hyperlipidemia (Chronic) Peripheral vascular occlusive disease (Chronic) abnormal JEANIE 2017 Claudication (Chronic) Nicotine dependence (Chronic) Medical History: Medical History (Last Reviewed 01/21/20 @ 09:40 by DENISE Garzon) Atherosclerosis of coronary artery of [place] heart without angina pectoris (Chronic) I25.10 Essential (primary) hypertension (Chronic) I10 Hyperlipidemia (Chronic) E78.5 Peripheral vascular occlusive disease (Chronic) I73.9 abnormal JEANIE 2017 Claudication (Chronic) I73.9 Nicotine dependence (Chronic) F17.200 Anxiety F41.9 Obesity E66.9 Type 2 diabetes mellitus E11.9 Rectal bleeding K62.5 Allergies No Known Allergies Allergy (Verified 02/25/20 11:35) Home Medications: Ambulatory Orders Medication Instructions Recorded metFORMIN HCl [Glucophage] 1,000 mg PO BID 10/08/15 Aspirin [Aspir-Low] 81 mg PO DAILY 07/14/18 atorvastatin 40 mg tablet 40 mg PO DAILY #90 tab 07/21/19 clopidogrel 75 mg tablet 75 mg PO QDAY #90 tab 07/21/19 lisinopril 10 mg tablet 10 mg PO DAILY #90 tab 07/21/19 cilostazol 100 mg tablet 100 mg PO ONCE tab 01/21/20 empagliflozin 10 mg tablet 10 mg PO DAILY 01/21/20 Surgical History: Surgical History (Last Reviewed 01/21/20 @ 09:40 by DENISE Garzon) History of coronary artery stent placement (Chronic) Onset Date: 10/10/15 Z95.5 [id number] LCx w/ 3.0 x 12 mm Promus Premier Stent 10/10/15 History of angioplasty of peripheral vessel Z98.62 RLE stent History of cholecystectomy Z90.49 History of hysterectomy Z90.710 History of left heart catheterization Onset Date: 10/09/15 Z98.890 Surgical History: no surgical history Smoking Status: Light Smoker (<10/day) Review of Systems Constitutional: Denies: Chills, Fever, Weight Change HEENT: Denies: Head Aches, Sinus Congestion, Sinus Drainage Cardiovascular: Denies: Chest Pain, Palpitations Respiratory: Denies: Cough, Shortness of breath at rest, Sputum production Gastrointestinal: Denies: Abdominal Pain, Nausea, Vomiting Genitourinary: Denies: Dysuria Musculoskeletal: Denies: Joint Pain, Joint Tenderness Skin: Denies: Rash, Wounds Neurological: Denies: Numbness, Tingling, Focal weakness Psychiatric: Denies: Anxiety, Depression, Homicidal Ideations, Suicidal Ideations Hematologic/ Lymphatic: Denies: Easy Bruising, Easy Bleeding VTE Information - Inpt Only VTE Present on Admission: No - Physical Exam Vitals/I&O's: Vital Signs Temp Pulse Resp BP Pulse Ox 97.2 F L 72 16 127/62 H 98 02/25/20 11:42 02/25/20 11:42 02/25/20 11:42 02/25/20 11:42 02/25/20 11:42 Oxygen Delivery Method Room Air Weight: 84.2 kg Body Mass Index (BMI) 33.9 Finger Stick Blood Glucose 304 General: Alert, Oriented x3, Cooperative HEENT: Atraumatic, PERRLA, EOMI, Normocephalic Neck: Supple, No JVD, Negative Carotid Bruits Lungs: Clear to auscultation, Normal air movement Cardiovascular: Regular rate, No murmurs Abdomen: Bowel Sounds Present, Soft, Non Tender Extremities: No edema, Capillary Refill Less than 3 Seconds Skin: No rashes, No breakdown Musculoskeletal: No Tenderness to Palpation of Joints or Extremities Neurological: Cranial nerves II-XII grossly intact Psych/Mental Status: Normal Affect, Appropriate Laboratory Results 02/25/20 11:50: POC Glucose 133 H Current Medications Lactated Ringer's () 1,000 mls @ 100 mls/hr IV .Q10H EDGARDO Last Admin: 02/25/20 11:57 Dose: 100 mls/hr Documented by: Assessment/Plan All Active Problems (Last Reviewed 01/21/20 @ 09:40 by DENISE Garzon) Preop cardiovascular exam (Acute) Plan to proceed with excision of urethral diverticulum.
--- NOTE | 2020-02-25 15:11 | PCM.DC.URO ---
Discharge Diet: Light diet - advance as tolerated Discharge Activity: May not drive while taking narcotic pain medications., May Shower Call your doctor if your incision/area has: Sudden Increased Bleeding Allergies/Adverse Reactions: Allergies No Known Allergies Allergy (Verified 02/25/20 11:35) Medications to take at Discharge metFORMIN HCl [Glucophage] 1,000 mg PO BID 10/08/15 Aspirin [Aspir-Low] 81 mg PO DAILY 07/14/18 atorvastatin 40 mg tablet 40 mg PO DAILY #90 tab 07/21/19 clopidogrel 75 mg tablet 75 mg PO QDAY #90 tab 07/21/19 lisinopril 10 mg tablet 10 mg PO DAILY #90 tab 07/21/19 cilostazol 100 mg tablet 100 mg PO ONCE tab 01/21/20 empagliflozin 10 mg tablet 10 mg PO DAILY 01/21/20 Cephalexin [Keflex] 500 mg PO BID #20 cap 02/25/20 Hydrocodone/Acetaminophen [[place] 5-325 Tablet] 1 each PO Q4H PRN PRN 5 Days #14 tablet 02/25/20 Phenazopyridine [Pyridium] 100 mg PO BID #20 tab 02/25/20 The following prescriptions were given: Cephalexin [Keflex] 500 mg PO BID #20 cap Transmission Status: Pending to [facility] Hydrocodone/Acetaminophen [[place] 5-325 Tablet] 1 each PO Q4H PRN PRN 5 Days #14 tablet PRN Reason: Pain Score 1-10/10 Transmission Status: Sent to [facility] Phenazopyridine [Pyridium] 100 mg PO BID #20 tab Transmission Status: Pending to [facility] Primary Care Physician: Ludwin Christianson MD [Primary Care Provider] - Test Results: Test results from this visit will be discussed in further detail at your follow-up appointment, if applicable. Please Follow Up With: Nazario Lundy MD When: please call to make an appointment- next to agata wooten
--- NOTE | 2020-02-25 15:13 | OP.PCM_ITS ---
Report of Operation Date of Procedure: 02/25/20 Pre-Operative Diagnosis: Urethral diverticulum symptomatic Post-Operative Diagnosis: Same Surgery/Procedure Performed:: 64-year-old female with a history of symptomatic urethral diverticulum is quite large could be seen on MRI of the pelvis. Plan to proceed with excision of urethral diverticulum Description of Surgical Findings:: Patient was taken back to the operating room at the smooth induction of general anesthesia she was placed supine on the table. She was then placed in dorsolithotomy position. We then placed the ureter the table in extreme lithotomy with the head down placed a weighted vaginal speculum into the vagina she was prepped and draped in usual sterile fashion, on inspection he could feel a bulging area right below the urethra that was the diverticulum. I did a cyst oscopy I thought I could see a tiny opening within the urethral channel that looked like an opening to a diverticulum but I could not get a wire through it. I looked inside the bladder there is no tumors or stones within the bladder the trigone was normal she had a slight cystocele and also slight rectocele. We proceeded with excision of the urethral diverticulum I first made a incision in the midline below the urethra infiltrated the incision with 1% lidocaine with 1- 1000 epinephrine this help control the mucosal bleeding I then stitched the labia out of the way on both the left and right side I then cut through the mucosa of the but gentle tissue and encountered the diverticulum is a little bit difficult to identify the diverticulum at first but after some dissection I was able to and identify the diverticulum I then placed a second stay stitches on the edges of the vaginal incision to hold that open as a dissected out the diverticulum I placed a Allis clamp on the diverticulum and used this as traction as a then dissected the diverticulum and came off the left side of the urethra and then went up high up on the from the right side going posterior to the urethra and very difficult dissection of the reach up and follow the diverticulum very carefully and finally the entire diverticulum came out in its entirety. This was handed off to the nurses a specimen I cut open the diverticulum in the back table and had a nice internal channel very thickened diverticulum after the diverticulum was excised then I reapproximated the periurethral tissue with 4-0 chromic stitches to approximate over the urethra tissue to help close any diverticular opening the neck of the diverticulum was not identifiable after the dissection and I could not really identify before the dissection. After closing over the periurethral tissue then I closed the vaginal incision in 2 layers the second layer was a 3-0 Vicryl and then I closed the last layer with 2-0 Vicryl in a running fashion. After the vaginal incision was closed we then did a cystoscopy with 30 and 73 lens there was no perforation or injury to the bladder there is no perforation or injury to the urethra the urethra was intact we then left the catheter into let it heal and put a 16 Mongolian catheter on gravity drainage patient anesthetic was versed was taken back to the PACU in good condition and I will see her next week for checkup and removal of the Wooten catheter. Type of Anesthesia:: General Drains: wooten - Admit VTE Documentation VTE Present on Admission: No VTE Mechan Device Prophylaxis: SCD's
[2020-02-25] MEDS: Ketorolac 15 MG/ML Vial IV (15:24)
[2020-02-25] MEDS: oxyCODONE 5 MG Tablet PO (16:45)
== END 2020-02-25 17:14 | disposition home or self-care (01) ==
LOC: SDC 11:11 → AC 11:12
PROVIDERS: Anesthesiology; PCP Family Medicine; Referring Provider Urology; Visit Provider Urology
PROC: (CPT 51525; principal; 2020-02-25 12:40)
DX: N36.1 Urethral diverticulum (principal); N81.10 Cystocele, unspecified; N81.6 Rectocele; I25.10 Atherosclerotic heart disease of native coronary artery without angina pectoris; E11.9 Type 2 diabetes mellitus without complications; E78.5 Hyperlipidemia, unspecified; I10 Essential (primary) hypertension; F41.9 Anxiety disorder, unspecified; F17.200 Nicotine dependence, unspecified, uncomplicated; Z79.82 Long term (current) use of aspirin; Z79.84 Long term (current) use of oral hypoglycemic drugs; Z90.710 Acquired absence of both cervix and uterus; Z95.5 Presence of coronary angioplasty implant and graft
CPT/HCPCS: 00910; 52224; 82962; 87635; 88305; G2023; J7120; J2405; U0003

== ENCOUNTER → 2020-06-05 08:22 | Outpatient (CLI) | payer MEDICARE, SELFPAY ==
[2020-02-25 11:42] VITALS: BMI 33.9
[2020-06-05 08:33] LABS: Bacteria 0 SEEN /hpf (None Seen); Mucous, Urine 0 SEEN /hpf (<or=2+); Red Blood Cells-Urine 0 SEEN /hpf (0-5); White Blood Cells 0 SEEN /hpf (0-5)
[2020-06-05 09:49] LABS: Absolute Lymphocyte Count 1.95 X10^3/uL (0.83-4.51); Absolute Neutrophil Count 4.1 X10^3/uL (2.0-7.7); Basophil# 0.03 X10^3/uL; Basophil% 0.4 % (0-1); Eosinophil# 0.11 X10^3/uL; Eosinophils% 1.6 % (0-5); Hematocrit 35.1 % (37-47); Hemoglobin 9.7 g/dL (12.0-15.0); Lymphocyte # 1.95 X10^3/ul (4.0); Lymphocyte % 28.3 % (19-41); Mean Corp Hgb Conc 27.6 g/dL (32-36); Mean Corpuscular Hgb 22.4 pg (27.0-32.0); Mean Corpuscular Volume 80.9 fL (81-99); Mean Platelet Vol. 9.2 fl (6.2-12.0); Monocyte# 0.67 X10^3/uL; Monocyte% 9.7 % (0-10); NRBC Flagged by Analyzer 0 % (0-5); Neutrophil # 4.11 X10^3/uL (2.7-7.7); Neutrophil % 59.7 % (47-70); Platelet Count 343 K/mm3 (150-450); RBC Distribution Width CV 19.1 % (11.6-14.6); RBC Distribution Width SD 55.9 fl (35.1-43.9); Red Blood Count 4.34 M/mm3 (4.2-5.4); White Blood Count 6.9 K/mm3 (4.4-11.0)
[2020-06-05 09:58] LABS: Color, Urine Yellow (Yellow); Glucose, Dipstick 1000 mg/dl (Normal); Ketone-Dipstick Negative (Negative); Leukocyte Esterase-Dipstick Negative /ul (Negative); Nitrite-Dipstick Negative (Negative); Occult Blood-Urine Negative /ul (Negative); Protein-Dipstick Negative (Negative); Specific Gravity, Urine 1.015 (1.002-1.030); Urine Bilirubin Dipstick Negative (Negative); Urine Clarity Sl. Cloudy (Clear); Urine Urobilinogen Normal (Normal)
[2020-06-05 10:06] LABS: Squamous Epithelial Cells - UA 0-5 SEEN /hpf (5-10)
[2020-06-05 10:13] LABS: ALB/GLOB Ratio 0.9 RATIO (0.9-2.4); AST(SGOT) 10 U/L (15-37); Alanine Aminotransfer ALT/SGPT 18 U/L (13-56); Albumin, Serum 3.4 g/dL (3.2-5.0); Alkaline Phosphatase 69 U/L (45-117); Anion Gap 9 (5-15); BUN 16 mg/dL (7-18); Calcium,Total 8.9 mg/dL (8.5-10.1); Chloride 105 mmol/L (98-107); Cholesterol 99 mg/dL (200); Creatinine, Serum 0.59 mg/dL (0.55-1.02); EST Glomerular Filtration Rate 108 mL/min (>60); Est Glom Filt Rate - Afr Amer 131 mL/min (>60); Globulin 3.7 g/dL (2.2-4.2); Glucose 134 mg/dL (74-106); High Density Lipoprotein 51 mg/dL; Potassium 4.1 mmol/L (3.5-5.1); Protein, Total 7.1 g/dL (6.4-8.2); Sodium Level 139 mmol/L (136-145); Triglycerides 94 mg/dL; Very Low Density Lipoprotein 19 mg/dL (5-40)
[2020-06-05 10:17] LABS: Microalbumin,Random Urine 6.2 mg/L (NO RANGE EST.)
[2020-06-05 13:57] LABS: Hemoglobin A1c 6.5 % (3.8-5.6)
[2020-06-05 14:16] LABS: Ferritin 3 ng/mL (8-252); Iron 16 ug/dL (50-170); Iron Binding Capacity,Total 468 ug/dL (250-450); PERCENT IRON SATURATION 3.4 % (15.0-55.0)
== END ==
PROVIDERS: PCP Family Medicine; Referring Provider Family Medicine; Visit Provider Family Medicine
DX: D50.9 Iron deficiency anemia, unspecified (principal); I25.10 Atherosclerotic heart disease of native coronary artery without angina pectoris; E78.5 Hyperlipidemia, unspecified; E11.9 Type 2 diabetes mellitus without complications
CPT/HCPCS: 80053; 80061; 81001; 82043; 82570; 82728; 83036; 83540; 83550; 85025

== ENCOUNTER → 2020-07-03 07:47 | Outpatient (CLI) | payer MEDICARE, SELFPAY ==
[2020-06-20 07:59] VITALS: BMI 34.6
[2020-07-03 10:08] LABS: Ferritin 17 ng/mL (8-252); Iron 58 ug/dL (50-170); Iron Binding Capacity,Total 432 ug/dL (250-450); PERCENT IRON SATURATION 13.4 % (15.0-55.0)
== END ==
PROVIDERS: PCP Family Medicine; Referring Provider Family Medicine; Visit Provider Family Medicine
DX: D50.9 Iron deficiency anemia, unspecified (principal)
CPT/HCPCS: 36415; 82728; 83540; 83550

== ENCOUNTER → 2020-07-07 08:23 | Outpatient (CLI) | payer MEDICARE, SELFPAY ==
[2020-06-20 07:59] VITALS: BMI 34.6
[2020-07-07 10:22] LABS: Absolute Lymphocyte Count 1.74 X10^3/uL (0.83-4.51); Absolute Neutrophil Count 3.9 X10^3/uL (2.0-7.7); Basophil# 0.03 X10^3/uL; Basophil% 0.5 % (0-1); Eosinophils% 1.6 % (0-5); Hematocrit 39.5 % (37-47); Hemoglobin 11.4 g/dL (12.0-15.0); Lymphocyte # 1.74 X10^3/ul (4.0); Mean Corp Hgb Conc 28.9 g/dL (32-36); Mean Corpuscular Hgb 26.5 pg (27.0-32.0); Mean Corpuscular Volume 91.9 fL (81-99); Mean Platelet Vol. 9.3 fl (6.2-12.0); Monocyte% 10.9 % (0-10); NRBC Flagged by Analyzer 0 % (0-5); Neutrophil # 3.86 X10^3/uL (2.7-7.7); Neutrophil % 59.7 % (47-70); POSITIVE MORPHOLOGY YES; Platelet Count 313 K/mm3 (150-450); RBC Distribution Width CV 28.9 % (11.6-14.6); RBC Distribution Width SD 95.1 fl (35.1-43.9); White Blood Count 6.5 K/mm3 (4.4-11.0)
[2020-07-07 10:28] LABS: Differential Indicated SCAN CRITERIA MET
[2020-07-07 11:15] LABS: Anisocytosis 3+; Hypochromasia 2+
[2020-07-07 11:16] LABS: Target Cells RARE
== END ==
PROVIDERS: PCP Family Medicine; Visit Provider Family Medicine
DX: D50.9 Iron deficiency anemia, unspecified (principal)
CPT/HCPCS: 36415; 85025

== ENCOUNTER → 2020-08-29 08:36 | Outpatient (CLI) | payer MEDICARE, SELFPAY ==
[2020-06-20 07:59] VITALS: BMI 34.6
[2020-08-29 10:14] LABS: Absolute Lymphocyte Count 1.79 X10^3/uL (0.83-4.51); Absolute Neutrophil Count 4.1 X10^3/uL (2.0-7.7); Basophil# 0.04 X10^3/uL; Basophil% 0.6 % (0-1); Eosinophil# 0.11 X10^3/uL; Eosinophils% 1.6 % (0-5); Hematocrit 42.4 % (37-47); Hemoglobin 13.2 g/dL (12.0-15.0); Lymphocyte # 1.79 X10^3/ul (4.0); Lymphocyte % 26.6 % (19-41); Mean Corp Hgb Conc 31.1 g/dL (32-36); Mean Corpuscular Hgb 29.9 pg (27.0-32.0); Mean Corpuscular Volume 95.9 fL (81-99); Mean Platelet Vol. 9.5 fl (6.2-12.0); Monocyte# 0.67 X10^3/uL; Monocyte% 9.9 % (0-10); NRBC Flagged by Analyzer 0 % (0-5); Neutrophil % 60.9 % (47-70); Platelet Count 289 K/mm3 (150-450); RBC Distribution Width CV 17.9 % (11.6-14.6); RBC Distribution Width SD 61.8 fl (35.1-43.9); Red Blood Count 4.42 M/mm3 (4.2-5.4); White Blood Count 6.7 K/mm3 (4.4-11.0)
[2020-08-29 10:39] LABS: Microalbumin,Random Urine 8.3 mg/L (NO RANGE EST.); Microalbumin:Creatinine Ratio 16.9 mg/g CRE (<30 mg/g CRE)
[2020-08-29 10:40] LABS: Hemoglobin A1c 6.1 % (3.8-5.6)
[2020-08-29 10:54] LABS: AST(SGOT) 14 U/L (15-37); Alanine Aminotransfer ALT/SGPT 24 U/L (13-56); Albumin, Serum 3.4 g/dL (3.2-5.0); Alkaline Phosphatase 65 U/L (45-117); Anion Gap 8 (5-15); BUN 13 mg/dL (7-18); BUN/Creat Ratio 21.9 RATIO (10-20); Calcium,Total 8.6 mg/dL (8.5-10.1); Chloride 108 mmol/L (98-107); Cholesterol 100 mg/dL (200); Creatinine, Serum 0.59 mg/dL (0.55-1.02); EST Glomerular Filtration Rate 108 mL/min (>60); Est Glom Filt Rate - Afr Amer 131 mL/min (>60); Ferritin 5 ng/mL (8-252); Globulin 3.4 g/dL (2.2-4.2); Glucose 124 mg/dL (74-106); High Density Lipoprotein 49 mg/dL; Iron 30 ug/dL (50-170); Iron Binding Capacity,Total 396 ug/dL (250-450); Potassium 4.4 mmol/L (3.5-5.1); Protein, Total 6.8 g/dL (6.4-8.2); Sodium Level 140 mmol/L (136-145); Triglycerides 100 mg/dL; Very Low Density Lipoprotein 20 mg/dL (5-40)
== END ==
PROVIDERS: PCP Family Medicine; Referring Provider Family Medicine; Visit Provider Family Medicine
DX: E11.9 Type 2 diabetes mellitus without complications (principal); D50.9 Iron deficiency anemia, unspecified; I10 Essential (primary) hypertension; E78.5 Hyperlipidemia, unspecified
CPT/HCPCS: 36415; 80053; 80061; 82043; 82570; 82728; 83036; 83540; 83550; 85025

== ENCOUNTER 2020-10-02 08:06 | Day surgery (SDC) | payer MEDICARE, SELFPAY ==
[2020-06-20 07:59] VITALS: BMI 34.6
--- NOTE | 2020-07-24 06:00 | HP_ITS ---
Intake Vital Signs 06/20/20 Height 5 ft 2 in 06/20/20 Weight: 189 lb 6 oz 06/20/20 BMI 34.6 06/20/20 BP 128/73 H 06/20/20 Blood Pressure Location Rt brachial 06/20/20 Position Sitting 06/20/20 Respiration 18 06/20/20 Pulse 75 06/20/20 Pulse Source Monitor 06/20/20 Temp 97.4 F L 06/20/20 Temp Source Temporal 06/20/20 Pulse Oximetry (%) 97 06/20/20 Oxygen Delivery Method room air Intake Visit Reasons: C-Scope & EGD Anemia Chief Complaint: PVD, left leg pain Allergies No Known Allergies Allergy (Verified 06/20/20 08:00) Medications metFORMIN HCl [Glucophage] 1,000 mg PO BID 10/08/15 [History Confirmed 06/20/20] Aspirin [Aspir-Low] 81 mg PO DAILY 07/14/18 [History Confirmed 06/20/20] empagliflozin 10 mg tablet 10 mg PO DAILY 01/21/20 [History Confirmed 06/20/20] clopidogrel 75 mg tablet 75 mg PO QDAY #90 tab 03/22/20 [Rx Confirmed 06/20/20] lisinopril 10 mg tablet 10 mg PO DAILY #90 tab 03/22/20 [Rx Confirmed 06/20/20] atorvastatin 40 mg tablet 40 mg PO DAILY #90 tab 03/23/20 [Rx Confirmed 06/20/20] cilostazol 100 mg tablet 100 mg PO BID tab 06/20/20 [History Confirmed 06/20/20] ferrous sulfate 325 mg (65 mg iron) tablet,delayed release 325 mg PO BID 06/20/20 [History Confirmed 06/20/20] oxybutynin chloride 10 mg tablet,extended release 24 hr 10 mg PO DAILY 06/20/20 [History Confirmed 06/20/20] [facility] Medical History Atherosclerosis of coronary artery of [place] heart without angina pectoris (Chronic) Essential (primary) hypertension (Chronic) Hyperlipidemia (Chronic) Peripheral vascular occlusive disease (Chronic) Claudication (Chronic) Nicotine dependence (Chronic) Black tarry stools (Acute) Fatigue (Acute) Iron deficiency anemia (Acute) Rheumatoid arthritis (Acute) Anxiety (Chronic) Obesity (Chronic) Type 2 diabetes mellitus (Chronic) Rectal bleeding (Resolved) Surgical History History of coronary artery stent placement (Chronic 10/10/15) History of angioplasty of peripheral vessel (Acute) History of cholecystectomy (Resolved) History of hysterectomy (Resolved) History of left heart catheterization (Resolved 10/09/15) Family History Sister Diabetes Breast cancer Brother Cancer throat Social History (Updated 06/20/20 @ 08:[address] Dain Fernandez MD) Smoking Status: Light Smoker (<10/day) HPI HPI HPI: KAELYN DRUMMOND, is a 64 F who presents to the office today for HPI HPI Surgical H&P: Yes HPI: KAELYN DRUMMOND, is a 64 F who presents to the office today for Evaluation of iron deficiency anemia. Patient recently had Hemoglobin counts of 9.7 and a low iron level. She had a fecal Occult blood card which was negative. She does not have any nosebleed she has not had any problems with epigastric or substernal pain she does state that her stools have been somewhat irregular over the last several years. She presents today for both an upper and lower scope. ROS General General: Yes weight change and fatigue; no appetite, colon cancer, breast cancer or weakness HEENT HEENT: No difficulty swallowing, eye injury, eye surgery, swollen glands or hoarseness Endo Endocrine: Yes diabetes mellitus; no thyroid disease, thyroid cancer, Hair loss, heat intolerance or cold intolerance Skin Skin: Yes changing moles; no rash Breast Breast: No left breast lump, right breast lump, nipple discharge, breast pain, abnormal mammogram, abnormal US or breast enlargement Musc Musculoskeletal: Yes rheumatoid arthritis; no back problems, arthritis, gout or joint pain Cardio Cardiovascular: Yes heart disease, heart attack and heart stent; no murmur, pacemaker, atrial fibrillation, high blood pressure, palpitations, shortness of breat with exertion or chest pain Psych Psychiatric: No depression, anxiety or hearing voices Resp Respiratory: No shortness of breath, No sleep apnea, No cough, No COPD, No asthma, No emphysema, No wheezing Gastro Gastrointestinal: No abdominal pain, No nausea or vomiting, No diarrhea, Yes constipation, No blood in stool, No acid reflux, No hemorrhoids, No ulcers, No gallbladder problem, No black,tarry stools Michael Hematologic: Yes blood thinners, No blood disorders, No bleeding, No anemia, No blood clots Neuro Neurologic: No system reviewed and no additional complaints, except as docu, No as per HPI, No abnormal walking, No abnormal hearing, No abnormal movements, No abnormal speech, No behavioral changes, No burning sensations, No confusion, No seizure-like activity, No unsteadiness, No dizziness, No localized weakness, No frequent falls, No headache(s), No lack of coordination, No loss of vision, No memory loss, No numbness, No other visual disturbances, No radiating pain, No restless legs, No sensory deficit, No fainting, No tingling, No tremor(s), No weakness, No other Exam Const General: no acute distress, well developed, well hydrated Orientation: oriented to person, oriented to place, oriented to time [facility] Head: normocephalic, atraumatic Ears: external ears normal Mouth: moist mucous membranes Eyes Sclera: sclerae normal Pupils: normal by confrontation Neck Neck: no lymphadenopathy noted Neck mass: No Thyroid: thyroid normal, symmetrical Chest Chest palpation & inspection: normal inspection of the chest Breast Palpation: No nipple discharge Resp Effort & Inspection: normal respiratory effort Auscultation: clear to auscultation bilaterally Percussion: percussion normal Cardio Rate: regular rate Rhythm: regular rhythm Heart Sounds: no murmurs GI Palpation: soft, no hepatosplenomegaly, no masses, nontender Rectal Exam: other Other: Rectal exam deferred. Extrem General: normal to inspection, no clubbing, cyanosis or edema Assessment & Plan Problems 1. Iron deficiency anemia, unspecified iron deficiency anemia type D50.9 Plan I have discussed the above with the patient. I have offered the patient colonoscopy As well as an EGD for evaluation. I have explained the risks/benefits of the procedure and described the procedure. I have discussed the risks with the patient, including but not limited to: infection, bleeding, perforation of the GI tract requiring emergency surgery, inability to complete the procedure, injury to any internal organs, complications of anesthesia, etc. - the patient understands and agrees to proceed. I have answered all the patient's questions to the patient's satisfaction and the patient has no further questions. The patient has been given instructions for the colon cleansing preparation. Coding Level of Care Code Off vis,new,level 3 Diagnoses Iron deficiency anemia, unspecified iron deficiency anemia type D50.9 ??Anemia type: iron deficiency ??Iron deficiency anemia type: unspecified iron deficiency COVID (Procedure Consent) Procedure Criteria Procedure Criteria: Yes Elective The surgeon/proceduralist and patient have discussed in detail the risk of exposure to and/or potential harm posed by the COVID-19 virus with having a surgery/procedure at this time versus the risk of? delaying the surgery/procedure. It is not possible to know either the risk of delaying the surgery or procedure or chance of getting an infection with perfect accuracy, but a joint decision was made between the patient and the surgeon/proceduralist ?to proceed at this time with the scheduled surgery/procedure as indicated on the consent form.
[2020-09-29 13:37] VITALS: BMI 34.5
[2020-10-02] VITALS (7 sets, daily range): BP systolic 103–119; BP diastolic 53–67; PULSE 59–87; RESP 14–18; TEMP 35.7–36.6; O2SAT 94–99; BMI 34.4
[2020-10-02] MEDS: Lactated Ringers 1,000 ML 100 ML IV (09:12)
[2020-10-02 09:21] LABS: Bedside Glucose 154 mg/dL (70-110)
--- NOTE | 2020-10-02 09:30 | EGD_PTH ---
PATIENT: KAELYN DRUMMOND LOC: EN U#:[id number] AGE/SX: 64/F ROOM: RE10/02/[address]: Dr. Qiana Grover MD : 1955 BED: DIS: 10/02/2020 SPEC #: [id number] RECD: 10/02/20 11:39 STATUS: VALERIO REHernan #: [id number] RYDER: 10/02/20 09:[address]: Qiana Grover DEPT: SURGICAL PATHOLOGY RECD BY: Nancy Bailon ENTERED: 10/02/20 13:46 SP TYPE: EGD BIOPSY OT DR: Dr. Ludwin Christianson MD Tissues: A - Gastric mucous membrane B - Gastric mucous membrane C - Descending colon D - Rectum, NOS Procedures: Special Stain Group II Surgery Specimen Level IV Alcian Blue/PAS (control) HEADER OPERATION: [place] [place] DIAGNOSIS: Anemia TISSUE SUBMITTED: A - Antrum biopsy for histo and H. pylori, B - GE junction biopsy, C - Distal descending polyp biopsy, D - Rectal polyps biopsy (x4) MICROSCOPIC DIAGNOSIS A. Gastric antrum, biopsy: Minimal chronic inflammation. See comment. B. Gastroesophageal junction, biopsy: Gastric mucosa with mild chronic inflammation. See comment. C. Distal descending colon polyp, biopsy: Polypoid fragments of benign colonic mucosa. See comment. D. Rectal polyp, biopsy: Tubular adenoma. See comment. AM:adrienne 10/03/2020 COMMENT A. The results of immunohistochemistry for Helicobacter pylori will be reported separately ([id number]). B. Squamous mucosa is not represented in the biopsy. Clinical correlation is suggested. No evidence of goblet cell metaplasia. Alcian blue/PAS stain with matched control supports the above diagnosis. C. Neither hyperplastic nor adenomatous change is identified. Clinical correlation is suggested. D. A single tubular adenoma is present. The remainder of the fragments show neither hyperplastic nor adenomatous change. Clinical correlation is suggested. MICROSCOPIC DESCRIPTION Slides are reviewed. GROSS DESCRIPTION A - Received in fixative is one container labeled with the patient's name and designated antrum biopsy. The specimen consists of one irregular fragment of light mcmahon soft tissue that measures 0.3 x 0.2 x 0.1 cm. The specimen is totally submitted in one cassette. B - Received in fixative is one container labeled with the patient's name and designated GE junction biopsy. The specimen consists of one irregular fragment of light mcmahon soft tissue that measures 0.3 x 0.3 x 0.1 cm. The specimen is totally submitted in one cassette. C - Received in fixative is one container labeled with the patient's name and designated distal descending polyp. The specimen consists of two irregular fragments of light mcmahon soft tissue that in aggregate measure 0.5 x 0.5 x 0.1 cm. The specimen is totally submitted in one cassette. D - Received in fixative is one container labeled with the patient's name and designated rectal polyp biopsy. The specimen consists of multiple irregular fragments of light mcmahon soft tissue that in aggregate measure 1.5 x 0.6 x 0.1 cm. The specimen is totally submitted in one cassette. / AM:adrienne 10/02/20 TC:5 CPT: 56785 x4, 13883
--- NOTE | 2020-10-02 09:30 | IMM_PTH ---
PATIENT: KAELYN DRUMMOND LOC: EN U#:[id number] AGE/SX: 64/F ROOM: RE10/02/[address]: Dr. Qiana Grover MD : 1955 BED: DIS: 10/02/2020 SPEC #: [id number] RECD: 10/02/20 14:34 STATUS: VALERIO REQ #: [id number] RYDER: 10/02/20 09:[address]: Qiana Grover DEPT: IMMUNOHISTOCHEMISTRY RECD BY: Snehal Mera ENTERED: 10/02/20 14:35 SP TYPE: IMMUNO OTHR DR: Dr. Ludwin Christianson MD Tissues: A - Stomach, NOS Procedures: H Pylori (initial) PHYSICIAN & INSTITUTION [place] [address] SPECIMEN INFORMATION: Tissue Source: A - Antrum biopsy Clinical Info: Anemia Specimen Number: [id number] CPT code: 31832 METHODOLOGY: Deparaffinized sections of prefer/formalin-fixed tissue or PAP/DQ stained slides are incubated with monoclonal/polyclonal antibodies/oligonucleotide probes. Localization is made via biotin free immunoperoxidase method. Appropriate controls are performed and reacted as expected. Results on target cell population are indicated in the following table: RESULTS: ANTIBODY / CLONE RESULT Block A H Pylori (polyclonal) negative These tests were developed and their performance characteristics determined by [facility]. They may not have been cleared or approved by the U.S. Food and Drug Administration. The FDA has determined that such clearance or approval is not necessary. INTERPRETATION: A. Antrum, biopsy: Negative for Helicobacter pylori organisms. AM:adrienne 10/03/2020
--- NOTE | 2020-10-02 09:30 | H&P.OPEN ---
History of Present Illness Date of Admission: 10/02/20 The patient is a 64 year old F presents for an EGD and colonoscopy due to anemia. Patient was previously seen by Dr. Fernandez in office and her hemoglobin at time was 9.7. Patient's more recent hemoglobins have been 11.4 then up to 13.2 most recently. Patient states her iron has been doubled since then. Patient denies any chronic abdominal pain/nausea/vomiting/reflux. Patient states she has bowel once every 3 to 4 days denies any blood. Patient denies any family history of colon cancer. Patient's last colonoscopy was in June 2018 she did have 2 polyps that time one was hyperplastic and one was a tubular adenoma. Past Medical/Surgical History - Planned Operation Planned Operative Procedure/s: cscope/egd Date of Operative Procedure: 10/02/20 Permit Signed: No S.O.S: Yes Is This Patient Having a Total Joint: No - Previous Hospitalizations/Surgeries HX Hospitalizations: Yes HX of Surgeries: galbladder, kidney stones removed, uterus removed. Any Problems With Anesthesia: No You/Your Family Experience Fever (Hyperthermia) With Anes: No Cholinesterase deficiency: No - Cardiovascular Hx Chest Pain within Last 2 months: No Hx of Irregular Heartbeat and/or Afib: No Hx Heart Attack: No Hx Congestive Heart Failure: No Hx Rheumatic Fever: No Hx Hypertension: Yes Hx Internal Defibrillator: No Hx Pacemaker: No Hx Cardiac Catheterization: No - [facility] 2015 What facility was last heart cath performed: [facility] Date of last Heart Cath: 2015 Hx Cardiac Surgery/Stents/Etc.: No Hx Stress Test: Yes - [facility] stress echo 08/2019 HX Edema: Yes - lower leg prn Hx Pain in Legs when Walking/Leg Cramps: Yes - had pvd r/t smoking - Respiratory Chronic Cough: No HX of Shortness of Breath: No Hoarseness: No Hx Chronic Obstructive Pulmonary Disease (COPD): No Hx Asthma: No Hx Emphysema: No Hx Sleep Apnea: No Hx Oxygen Use at Home: No Hx Respiratory Tract Infection/Cold (presently): No Do You Snore Loudly (louder than talking or can be heard): No Do You Often Feel Tired/ Fatigued/ Sleepy Dring Daytime?: No Has Anyone Observed You Stop Breathing During Sleep?: No Result (for STOP score): Negative Hx Smoking: Yes Smoking Status: Light Smoker (<10/day) - Gastrointestinal Hx Gastroesophageal Reflux: No Hx Gastrointestinal Disorders: No Hx Gastrointestinal Bleed: No Hx Ulcer: No Hx Hiatal Hernia: No Difficulty Chewing/Swallowing: No Recent Onset of Swallowing Problems: No Special diet followed at home: No Hx Unplanned Weight Loss of 20#: No HX Unplanned Weight Gain of 20#: No - Neurological Hx Seizures: No HX Syncope/Blackout Spells/Unconsciousness: No Hx CVA/Stroke: No Hx Transient Ischemic Attacks (TIA): No Hx Multiple Sclerosis: No Hx Parkinson's Disease: No Hx Head/Neck Injury: No Hx Headaches: No Hx Back Injury/Pain: No Recent Onset of Speech Difficulty: No Restless Legs: No Does patient have nerve stimulator: No Patient instructed to have device shut off: No Rep notified?: No - Blood Disorder Hx Leukemia: No Bleeding Tendencies: No Hx Deep Vein Thrombosis: No Hx High Cholesterol: Yes - on atorvastatin Blood Transmitted Disease: No Hx Hepatitis: No Hx Cirrhosis: No Hx Anemia: No Hx Blood Disorders: No - Reproduction Hx Hysterectomy: Yes Are You Post Menopause: Yes - Genitourinary Hx Renal Disease: No Hx Dialysis: No - Musculoskeletal Hx Arthritis: Yes Hx Rheumatoid Arthritis: No Hx Gout: No Recent Onset of an Orthopedic Problem: No - Endocrine Hx Diabetes: Yes Insulin: No Thyroid Disease: No Hx Steroid Therapy: No - Psycho/Social Hx Substance Use: No Hx Alcohol Use: Yes - social Hx Anxiety: No Hx Depression: No Mental Illness: No Hx Dementia: No - Miscellaneous Hx Cancer: Yes - CERVICAL Recent Exposure to Contagious Disease: No Active MRSA: No Hx of C-Diff: No Any Loose Teeth: No - dentures Allergies No Known Allergies Allergy (Verified 09/27/20 13:20) - Discharge Is Pt Admitted From a [facility], or a Alf: No After D/C, Where Do you Plan to Go: Return Home - From the PAT History Number of Risk Factors: 5 - Physical Exam Vitals/I&O's: Vital Signs Temp Pulse Resp BP Pulse Ox 96.3 F L 59 L 14 113/53 L 99 10/02/20 08:56 10/02/20 08:56 10/02/20 08:56 10/02/20 08:56 10/02/20 08:56 Oxygen Delivery Method Room Air Weight: 188 lb 7.924 oz Body Mass Index (BMI) 34.4 Finger Stick Blood Glucose 304 General: Alert, Oriented x3, Cooperative, No apparent distress HEENT: Atraumatic Lungs: Normal air movement Cardiovascular: Regular rate Abdomen: Soft, Non Tender, Non-Distended Extremities: No clubbing, No cyanosis, No edema Neurological: Cranial nerves II-XII grossly intact Psych/Mental Status: Normal Affect Microbiology Past 72 Hours 09/29/20 09:30 Interface Orders SARS-CoV-2 Antigen (Rapid) - Final Laboratory Results 10/02/20 09:03: POC Glucose 154 H Current Medications Lactated Ringer's () 1,000 mls @ 100 mls/hr IV .Q10H EDGARDO Last Admin: 10/02/20 09:12 Dose: 100 mls/hr Documented by: Assessment/Plan 64-year-old female with anemia Procedure Criteria Procedure Type: Elective COVID Risk Discussion: The surgeon/proceduralist and patient have discussed in detail the risk of exposure to and/or potential harm posed by the COVID-19 virus with having a surgery/procedure at this time versus the risk of delaying the surgery/procedure. It is not possible to know either the risk of delaying the surgery or procedure or chance of getting an infection with perfect accuracy, but a joint decision was made between the patient and the surgeon/proceduralist to proceed at this time with the scheduled surgery/procedure as indicated on the consent form. Surgery Risks - Colonoscopy I discussed with the patient the risks of the procedure: Yes Risks Include but are not Limited To: Risks include but are not limited to: Bleeding, perforation requiring further surgery, inability to complete colonoscopy requiring barium enema.
--- NOTE | 2020-10-02 10:47 | OP.EGD_ITS ---
Patient Name: Anitra Powers Procedure Date: 10/02/2020 9:36 AM Date of : 1955 Age: 64 Procedure: Upper GI endoscopy Indications: Iron deficiency anemia Providers: Qiana Grover MD Referring MD: Ludwin Christianson Medicines: Monitored Anesthesia Care Patient Profile: This is a 64 year old female. Complications: No immediate complications. Procedure: Pre-Anesthesia Assessment: - Prior to the procedure, a History and Physical was performed, and patient medications and allergies were reviewed. The patient's tolerance of previous anesthesia was also reviewed. The risks and benefits of the procedure and the sedation options and risks were discussed with the patient. All questions were answered, and informed consent was obtained. Prior Anticoagulants: The patient has taken Plavix (clopidogrel), last dose was 5 days prior to procedure. ASA Grade Assessment: Per anesthesia. After reviewing the risks and benefits, the patient was deemed in satisfactory condition to undergo the procedure. After obtaining informed consent, the endoscope was passed under direct vision. Throughout the procedure, the patient's blood pressure, pulse, and oxygen saturations were monitored continuously. The Endoscope was introduced through the mouth, and advanced to the second part of duodenum. The upper GI endoscopy was accomplished without difficulty. The patient tolerated the procedure well. Scope In: 9:50:42 AM Scope Out: 9:56:26 AM Total Procedure Duration Time 0 hours 5 minutes 44 seconds Findings: The Z-line was irregular and was found 40 cm from the incisors. Biopsies were taken with a cold forceps for histology. Moderate inflammation characterized by erythema was found in the gastric antrum. Biopsies were taken with a cold forceps for histology. Biopsies were taken with a cold forceps for Helicobacter pylori cultures. The examined duodenum was normal. The cardia and gastric fundus were normal on retroflexion. Impression: - Z-line irregular, 40 cm from the incisors. Biopsied. - Gastritis. Biopsied. - Normal examined duodenum. Recommendation: - Await pathology results. - Discharge patient to home. - Resume previous diet. - Use Protonix (pantoprazole) 40 mg PO daily. - Continue present medications. Procedure Code(s): --- Professional --- 68412, Esophagogastroduodenoscopy, flexible, transoral; with biopsy, single or multiple Diagnosis Code(s): --- Professional --- K22.8, Other specified diseases of esophagus K29.70, Gastritis, unspecified, without bleeding D50.9, Iron deficiency anemia, unspecified CPT copyright 2017 [employer] [place] [employer]. All rights reserved. The codes documented in this report are preliminary and upon developmental training counselor review may be revised to meet current compliance requirements. MD Qiana Culver MD 10/02/2020 10:46:50 AM This report has been signed electronically. Number of Addenda: 0 Note Initiated On: 10/02/2020 9:36 AM
--- NOTE | 2020-10-02 10:47 | OP.CCLET_ITS ---
10/02/2020 Ludwin Christianson [address] [place] [address] Re : Upper GI endoscopy procedure for Anitra Powers Dear Dr. Christianson This procedure was performed on Friday, October 02, 2020. My impressions and recommendations are as follows: Impressions : - Z-line irregular, 40 cm from the incisors. Biopsied. - Gastritis. Biopsied. - Normal examined duodenum. Recommendations : - Await pathology results. - Discharge patient to home. - Resume previous diet. - Use Protonix (pantoprazole) 40 mg PO daily. - Continue present medications. My findings are described in the full procedure note, which is enclosed. If I can be of further assistance, please feel free to contact me at Doctor phone number(s): , Work: . Sincerely, MD Qiana Culver MD 10/02/2020 10:46:50 AM This report has been signed electronically.
--- NOTE | 2020-10-02 10:51 | OP.CCLET_ITS ---
10/02/2020 Ludwin Christianson [address] [place] [address] Re : Colonoscopy procedure for Anitra Powers Dear Dr. Christianson This procedure was performed on Friday, October 02, 2020. My impressions and recommendations are as follows: Impressions : - Five less than 5 mm polyps in the rectum and in the distal descending colon, removed with a cold biopsy forceps. Resected and retrieved. - Diverticulosis in the sigmoid colon. Recommendations : - Discharge patient to home. - High fiber diet. - Continue present medications. - Repeat colonoscopy in 3 - 5 years for surveillance based on pathology results. My findings are described in the full procedure note, which is enclosed. If I can be of further assistance, please feel free to contact me at Doctor phone number(s): , Work: . Sincerely, MD Qiana Culver MD 10/02/2020 10:51:30 AM This report has been signed electronically.
--- NOTE | 2020-10-02 10:51 | OP.COLON_ITS ---
Patient Name: Anitra Powers Procedure Date: 10/02/2020 9:58 AM Date of : 1955 Age: 64 Procedure: Colonoscopy Indications: Iron deficiency anemia Providers: Qiana Grover MD Referring MD: Ludwin Christianson Medicines: Monitored Anesthesia Care Patient Profile: This is a 64 year old female. Last Colonoscopy: 2018. Complications: No immediate complications. Procedure: Pre-Anesthesia Assessment: - Prior to the procedure, a History and Physical was performed, and patient medications and allergies were reviewed. The patient's tolerance of previous anesthesia was also reviewed. The risks and benefits of the procedure and the sedation options and risks were discussed with the patient. All questions were answered, and informed consent was obtained. Prior Anticoagulants: The patient has taken Plavix (clopidogrel), last dose was 5 days prior to procedure. ASA Grade Assessment: Per anesthesia. After reviewing the risks and benefits, the patient was deemed in satisfactory condition to undergo the procedure. After I obtained informed consent, the scope was passed under direct vision. Throughout the procedure, the patient's blood pressure, pulse, and oxygen saturations were monitored continuously. The colonoscope was introduced through the anus and advanced to the cecum, identified by the appendiceal orifice, ileocecal valve and palpation. The colonoscopy was performed without difficulty. The patient tolerated the procedure well. The quality of the bowel preparation was adequate to identify polyps. Scope In: 9:59:12 AM Scope Withdrawal Time 0 hours 27 minutes 46 seconds Scope Out: 10:38:46 AM Total Procedure Duration Time 0 hours 39 minutes 34 seconds Findings: The perianal and digital rectal examinations were normal. Five sessile polyps were found in the rectum and distal descending colon. The polyps were less than 5 mm in size. These polyps were removed with a cold biopsy forceps. Resection and retrieval were complete. A few small-mouthed diverticula were found in the sigmoid colon. Impression: - Five less than 5 mm polyps in the rectum and in the distal descending colon, removed with a cold biopsy forceps. Resected and retrieved. - Diverticulosis in the sigmoid colon. Recommendation: - Discharge patient to home. - High fiber diet. - Continue present medications. - Repeat colonoscopy in 3 - 5 years for surveillance based on pathology results. Procedure Code(s): --- Professional --- 78164, Colonoscopy, flexible; with biopsy, single or multiple Diagnosis Code(s): --- Professional --- K62.1, Rectal polyp D12.4, Benign neoplasm of descending colon D50.9, Iron deficiency anemia, unspecified K57.30, Diverticulosis of large intestine without perforation or abscess without bleeding CPT copyright 2017 [employer] [employer]. All rights reserved. The codes documented in this report are preliminary and upon audit senior associate review may be revised to meet current compliance requirements. MD Qiana Culver MD 10/02/2020 10:51:30 AM This report has been signed electronically. Number of Addenda: 0 Note Initiated On: 10/02/2020 9:58 AM
== END 2020-10-02 11:46 | disposition home or self-care (01) ==
LOC: EN 08:07 → AC 08:08
PROVIDERS: PCP Family Medicine; Referring Provider Family Medicine; Visit Provider Surgery
PROC: 0DJD8ZZ Inspection of Lower Intestinal Tract, Via Natural or Artificial Opening Endoscopic (ICD-10-PCS; CPT 45378; principal; 2020-10-02 09:25)
DX: D50.9 Iron deficiency anemia, unspecified (principal); K22.8 Other specified diseases of esophagus; K29.70 Gastritis, unspecified, without bleeding; K62.1 Rectal polyp; D12.4 Benign neoplasm of descending colon; K57.30 Diverticulosis of large intestine without perforation or abscess without bleeding; I10 Essential (primary) hypertension; I25.10 Atherosclerotic heart disease of native coronary artery without angina pectoris; E11.9 Type 2 diabetes mellitus without complications; E78.5 Hyperlipidemia, unspecified; Z79.82 Long term (current) use of aspirin; Z79.84 Long term (current) use of oral hypoglycemic drugs; Z87.19 Personal history of other diseases of the digestive system; Z87.442 Personal history of urinary calculi
CPT/HCPCS: 43239; 45380; 82962; 87426; 88305; 88313; 88342; C9803; J7120; J2405

== ENCOUNTER → 2020-11-02 08:56 | Outpatient (CLI) | payer MEDICARE, SELFPAY ==
[2020-10-02 08:56] VITALS: BMI 34.4
--- NOTE | 2020-11-02 08:59 | RAD_ITS ---
STUDY: X-RAY - RIGHT SHOULDER REASON FOR EXAM: Right shoulder pain for 2 days, fell on shoulder. TECHNIQUE: 4 view(s) of the shoulder. COMPARISON: None. FINDINGS: Normal glenohumeral articulation. There is acromioclavicular arthrosis. Normal acromion. Normal humeral head and visualized proximal humerus. There is a small focus of calcific tendinitis. Normal visualized pulmonary apex. RAD/Shoulder min 2 Views IMPRESSION: Acromioclavicular arthrosis. Small focus of calcific tendinitis. Electronically Signed: Gopal Michel MD at 13:47 EDT Tel , Service support ,
== END ==
PROVIDERS: PCP Family Medicine; Referring Provider Family Medicine; Visit Provider Family Medicine
DX: M25.511 Pain in right shoulder (principal); W19.XXXA Unspecified fall, initial encounter
CPT/HCPCS: 73030

== ENCOUNTER 2020-12-04 10:00 | Outpatient (RCR) | payer MEDICARE, SELFPAY ==
[2020-10-02 08:56] VITALS: BMI 34.4
--- NOTE | 2020-11-03 15:11 | HP.PTEVAL ---
Patient's Visit Information KAELYN DRUMMOND is a 64 year old F referred to Physical Therapy by Dr. Herrera Thomas MD with a diagnosis of R SHOULDER PAIN. Date of Evaluation: 11/03/20 Physical Therapist: Patricia Smalls PT, Cert MDT - Visit Plan Frequency: 2-3x /Week Duration: 4-6 Weeks Plan: HP/CP NEEDED. POSTURE CORRECTION/STRENGTHENING, INSTRUCTION IN APPROPRIATE BODY MECHANICS AND ACTIVITY MODIFICATIONS. R UE ROM, STRETCHING AND STRENGTHENING. HEP INSTRUCTION. - Subjective Diagnosis: R SHLD PAIN. 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 Disability: NO. Present symptoms: RIGHT NECK, SHOULDER AND UPPER ARM PAIN. JUSTYN INTERMITTENT FINGER NUMBNESS THAT IS CHRONIC. Present since: Fri10/31/20 - 3 DAYS AGO. Pain Scale: Worst - 8/10 Least - 2/10. Currently: 09/27. Commenced as a result of: FELL OFF A STEP LADDER AT HOME. Symptoms at onset: R SHLD PAIN. Worse: TRYING TO GET COMFORTABLE LYING DOWN AT NIGHT. REACHING FORWARD AND OUT TO THE SIDE. WHEN ELBOW MOVES AWAY FROM SIDE. Better: RESTING ARM IN SLING, JUST NOT USING IT. Disturbed sleep: YES. Previous history/Previous treatment: YEARS AGO HAD A DISLOCATED RIGHT SHLD BUT FEELS SHE FULLY RECOVERED FROM THAT. PATIENT DENIES ANY HISTORY OF NECK PROBLEMS. This episode: SLING AND PT CONSULT. Dizziness: NO. Tinnitis: NO. Nausea: NO. Shortness of Breath: NO. Difficulty Swollowing: NO. Gait: NORMAL - NO NEW PROBLEMS BUT DOES HAVE PVD. Accidents: NO. Unexplained weight loss: NO. Imaging: R SHLD X-RAY: IMPRESSION: Acromioclavicular arthrosis. Small focus of calcific tendinitis. PMH/Recent major surgery: R LEG STENT FOR PVD, UTERINE CANCER ABOUT 30 YEARS AGO TREATED WITH SX. HTN, HEART ATTACK ABOUT 4 YEARS AGO FOLLOWED BY STENT, NIDDM, DIVERTICULUM REMOVED ABOUT 9 MONTHS AGO. - Objective Sitting Posture/Standing Posture: POOR. FH. R SHLD'S. Active Correction of posture: WORSE. Other Observations: INDEP GAIT. WEARING A SLING TO PT ON R UE. NEEDS ASSIST WITH TRANSFERS SIT TO SUPINE AND REVERSE. Motor deficit: L UE WFL. R SHLD FLEX 2-/5, ABD 2-/5, ER 2-/5, IR 2/5, ELBOW FLEX 3+/5, ELBOW EXT 3+/5, FOREARM, WRIST AND HAND 4-/5. Sensory deficit: JUSTYN UE LIGHT TOUCH SENSATION INTACT AND SYMMETRICAL. ROM deficit: (BEGINNING OF SESSION) L UE WFL. RIGHT UE AROM OF HAND, WRIST, FOREARM AND ELBOW WFL. AROM R SHLD IN SITTING: FLEX 0 DEG, ABD 10 DEG. SUPINE IR WITH 70 DEG PASSIVE ABD = 30 DEG, ER 38 DEG. PASSIVE R SHLD FLEX 100 DEG, ABD 85 DEG. Reflexes: 2/3 JUSTYN UE'S. Dural Signs: NEGATIVE JUSTYN UE'S. Postural strength: POOR. Palpation: PATIENT IS ACTUALLY NOT ACUTELY TENDER WITH LIGHT PALPATION OF THE R SHLD AND BICEPS REGIONS. NO ECCYMOSIS. THERE IS MODERATE SWELLING OF THE RIGHT UPPER ARM/SHLD REGION COMPARED TO L. TREATMENT: NEUROMUSCULAR REEDUCATION - RETRAINING OF MVMT AND POSTURE FOR SITTING, LYING AND STANDING ACTIVITIES. HEP: TABLE WALK AWAYS FOR GENTLE PASSIVE SHLD FLEXION AND PENDULUM EX'S FOR GENTLE PASSIVE FLEX/EXT, ABD/ADD AND CW/CCW CIRCLES. PATIENT WITH IMPROVED ACTIVE AND PASSIVE ROM OR RIGHT SHLD POST EX AND NO INCREASE IN C/O PAIN. ALSO INSTRUCTED PATIENT IN HOME AROM OF R ELBOW, FOREARM, WRIST AND HAND TOLERATED. INST PATIENT TO KEEP ALL EX'S IN PAINFREE RANGE AND INTENSITY. PATIENT COMMUNICATED A GOOD UNDERSTANDING OF ALL INSTRUCTIONS AFTER GIVEN. - Goals Goal 1:: DECREASE C/O R UE PAIN Goal Time Frame: 4-6 Weeks Goal 2:: IMPROVE RIGHT UE FUNCTIONAL ROM TO EASE ADL'S. Goal Time Frame: 4-6 Weeks Goal 3:: IMPROVE R UE FUNCTIONAL STRENGTH TO EASE ADL'S. Goal Time Frame: 4-6 Weeks Goal 4:: PATIENT WILL BE INDEP WITH A HEP FOR CONTINUED IMPROVEMENT ONCE FORMAL PHYSICAL THEPAPY CONCLUDES Goal Time Frame: 4-6 Weeks - Anticipated Interventions Patient/Client Instruction: Educate patient on: Condition, Plan of Care, Risk Factors For the Purpose of:: To improve self management Therapeutic Exercise to Include: Strength training, Body mechanics, Postural training, Flexibilty training, Neuromotor development, Active ROM, Scapular Strength/Stabilization For the Purpose of:: To decrease pain, To increase ROM, To improve muscle performance and motor function, To increase tolerance to activity/condition/position, To improve ability of physical actions for home/community/work/leisure Thank you for the opportunity to evaluate your patient. For Medicare and Medicare HMO plans, please review the plan of care and approve it. It will need to be FAXED BACK to us at [phone] for Medicare purposes. For Medicare only, by signing this I certify the plan of care. Please let me know if there are questions or concerns regarding this plan of care. Physician Signature: Date:
--- NOTE | 2021-05-27 16:55 | HP.PT.NRP ---
KAELYN DRUMMOND was seen in my office for initial evaluation on 11/03/20. The following Plan of Care was established for this patient: Initial Frequency: 2-3x /Week Initial Duration: 4-6 Weeks Patient/Client Instruction: Educate patient on: Condition, Plan of Care, Risk Factors For the Purpose of:: To improve self management Therapeutic Exercise to Include: Strength training, Body mechanics, Postural training, Flexibilty training, Neuromotor development, Active ROM, Scapular Strength/Stabilization For the Purpose of:: To decrease pain, To increase ROM, To improve muscle performance and motor function, To increase tolerance to activity/condition/position, To improve ability of physical actions for home/community/work/leisure This patient was last seen in our office 12/04/20. Pertinent comments regarding their Physical therapy will appear below: This patient has not returned to Physical Therapy and is appropriate to return to MD for further follow-up as needed. At this point I will be discontinuing this patient from physical therapy. I would be happy to see this patient again in the future if found appropriate by the physician. Thank you! Patricia Smalls, PT, Cert MDT Balance/Gait/Functional tests - Balance/Special Test Scores Quick DASH Score: [phone]
== END 2020-12-04 19:00 | disposition home or self-care (01) ==
LOC: PT 10:00
PROVIDERS: PCP Family Medicine; Referring Provider Family Medicine; Visit Provider Family Medicine
DX: M25.511 Pain in right shoulder (principal)
CPT/HCPCS: 97110; 97162; 97530

== ENCOUNTER → 2021-01-08 08:34 | Outpatient (CLI) | payer MEDICARE, SELFPAY ==
[2020-10-02 08:56] VITALS: BMI 34.4
[2021-01-08 10:39] LABS: Absolute Lymphocyte Count 1.48 X10^3/uL (0.83-4.51); Absolute Neutrophil Count 3.7 X10^3/uL (2.0-7.7); Basophil# 0.04 X10^3/uL; Basophil% 0.7 % (0-1); Eosinophil# 0.14 X10^3/uL; Eosinophils% 2.3 % (0-5); Hematocrit 30.8 % (37-47); Lymphocyte # 1.48 X10^3/ul (0.83-4.51); Lymphocyte % 24.1 % (19-41); Mean Corp Hgb Conc 29.2 g/dL (32-36); Mean Corpuscular Hgb 24.5 pg (27.0-32.0); Mean Corpuscular Volume 83.9 fL (81-99); Monocyte# 0.75 X10^3/uL; Monocyte% 12.2 % (0-10); NRBC Flagged by Analyzer 0 % (0-5); Neutrophil # 3.72 X10^3/uL (2.7-7.7); Neutrophil % 60.4 % (47-70); POSITIVE MORPHOLOGY YES; Platelet Count 322 K/mm3 (150-450); RBC Distribution Width CV 21.9 % (11.6-14.6); RBC Distribution Width SD 66.8 fl (35.1-43.9); Red Blood Count 3.67 M/mm3 (4.2-5.4); White Blood Count 6.2 K/mm3 (4.4-11.0)
[2021-01-08 10:42] LABS: Differential Indicated SCAN CRITERIA MET
[2021-01-08 10:58] LABS: Anisocytosis 2+
[2021-01-08 11:02] LABS: Microalbumin,Random Urine 9.4 mg/L (NO RANGE EST.); Microalbumin:Creatinine Ratio 26.5 mg/g CRE (<30 mg/g CRE)
[2021-01-08 11:03] LABS: AST(SGOT) 14 U/L (15-37); Alanine Aminotransfer ALT/SGPT 18 U/L (13-56); Albumin, Serum 3.4 g/dL (3.2-5.0); Alkaline Phosphatase 81 U/L (45-117); Anion Gap 7 (5-15); BUN 15 mg/dL (7-18); BUN/Creat Ratio 26.5 RATIO (10-20); Calcium,Total 8.8 mg/dL (8.5-10.1); Chloride 107 mmol/L (98-107); Cholesterol 101 mg/dL (200); Creatinine, Serum 0.56 mg/dL (0.55-1.02); EST Glomerular Filtration Rate 114 mL/min (>60); Est Glom Filt Rate - Afr Amer 138 mL/min (>60); Ferritin 2 ng/mL (8-252); Globulin 3.5 g/dL (2.2-4.2); Glucose 151 mg/dL (74-106); Hemoglobin A1c 7.2 % (3.8-5.6); High Density Lipoprotein 41 mg/dL; Iron 15 ug/dL (50-170); Iron Binding Capacity,Total 480 ug/dL (250-450); Potassium 3.8 mmol/L (3.5-5.1); Protein, Total 6.9 g/dL (6.4-8.2); Sodium Level 138 mmol/L (136-145); Thyroid Stim Hormone (TSH) 1.83 uIU/mL (0.358-3.74); Triglycerides 120 mg/dL; Very Low Density Lipoprotein 24 mg/dL (5-40)
== END ==
PROVIDERS: PCP Family Medicine; Referring Provider Family Medicine; Visit Provider Family Medicine
DX: E11.9 Type 2 diabetes mellitus without complications (principal); I10 Essential (primary) hypertension; E78.5 Hyperlipidemia, unspecified; D50.9 Iron deficiency anemia, unspecified
CPT/HCPCS: 80053; 80061; 82043; 82570; 82728; 83036; 83540; 83550; 84443; 85025

== ENCOUNTER → 2021-01-23 17:05 | Outpatient (CLI) | payer MEDICARE, SELFPAY ==
[2020-10-02 08:56] VITALS: BMI 34.4
[2021-01-23 18:15] LABS: Vitamin B12 221 pg/mL (211-911)
[2021-01-23 18:50] LABS: Ferritin 2 ng/mL (8-252); Iron Binding Capacity,Total 473 ug/dL (250-450)
[2021-01-24 08:43] LABS: Iron 9 ug/dL (50-170)
[2021-01-25 16:08] LABS: Endomysial Antibody IgA Negative (Negative)
[2021-01-25 16:27] LABS: Immunoglobulin A 178 mg/dL (87-352); t-Transglutaminase IgA <2 U/mL (0-3)
== END ==
PROVIDERS: PCP Family Medicine; Visit Provider Internal Medicine Hematology & Oncology
DX: D50.0 Iron deficiency anemia secondary to blood loss (chronic) (principal)
CPT/HCPCS: 82607; 82728; 82746; 82784; 83516; 83540; 83550; 86255

== ENCOUNTER → 2021-01-24 07:43 | Outpatient (CLI) | payer MEDICARE, SELFPAY ==
[2020-10-02 08:56] VITALS: BMI 34.4
--- NOTE | 2021-01-24 07:55 | CT_ITS ---
STUDY: LOW DOSE CT LUNG CANCER SCREENING REASON FOR EXAM: Female, 65 years old. TOBACCO DEPENDENCE. Patient smoked 1 pack per day for 40 years. RADIATION DOSAGE (If Supplied By Facility): CTDIvol = ( 3.02 ) mGy, DLP = ( 95.53 ) mGycm TECHNIQUE: No contrast was administered. Low dose technique was utilized (average mAS-38 and kVp 120). 1.25 mm axial source images with a slice interval of 1.25-mm were reconstructed in lung windows. 2.5 mm axial source images with a slice interval of 2.5-mm were reconstructed in lung windows. 5.0 mm axial source images with a slice interval of 5.0-mm were reconstructed in soft tissue windows. Nodule measured using lung windows on PACS and/or independent workstation with automated measurement of minimum and maximum diameter. Nodule measurement reported as average diameter rounded to the nearest whole number. Growth is defined as an increase ins size of greater than 1.5 mm. COMPARISON: None. NODULES: There is a 2 cm x 1.4 cm x 1.5 cm slightly spiculated nodule in the medial aspect of the left upper lobe abutting the mediastinum. This is seen on axial image #78 and coronal image #126. Aorta: Atherosclerotic plaques. Coronary arteries: Coronary artery calcification. Heart: Unremarkable. Pulmonary artery: Unremarkable. Mediastinal nodes: Enlarged pretracheal lymph node measuring 2.4 cm. Other chest and abdominal findings: CT/Low Dose CT Lung Screening IMPRESSION: Lung-RADS category 4B - Chest CT with or without contrast, PET/CT and/or tissue sampling can be obtained depending on the probability of malignancy and comorbidities. IMPORTANT NOTES FOR USE: ACR Lung-RADS Version 1.1 Assessment Categories Release Date: 2018 Category: Coded 0-4 bases on nodule(s) with highest degree of suspicion. Negative screen is defined as categories 1 and 2; a positive screen is defined as categories 3 and 4. Category 3 and 4A nodules that are unchanged on interval CT should be coded as category 2, and individuals returned to screening in 12 months. Category 4X: Category 3 or 4 nodules with additional imaging findings that increase the suspicion of lung cancer, such as spiculation, GGN that doubles in size in 1 year, enlarged lymph notes, etc. Category Modifiers: S (significant finding unrelated to lung cancer) Electronically Signed: Claude Nunez MD at 11:46 EDT , Service support ,
== END ==
PROVIDERS: PCP Family Medicine; Referring Provider Family Medicine; Visit Provider Family Medicine
DX: Z12.2 Encounter for screening for malignant neoplasm of respiratory organs (principal); F17.210 Nicotine dependence, cigarettes, uncomplicated
CPT/HCPCS: 71271

== ENCOUNTER → 2021-02-05 07:03 | Outpatient (CLI) | payer MEDICARE, SELFPAY ==
[2020-10-02 08:56] VITALS: BMI 34.4
--- NOTE | 2021-02-05 08:33 | RAD_ITS ---
STUDY: X-RAY CHEST REASON FOR EXAM: Female, 65 years old. PULMONARY NODULE TECHNIQUE: 2 views COMPARISON: None 10/08/2015. FINDINGS: The lungs are clear and expanded. There is no demonstrated pleural abnormality. Normal size heart. Normal mediastinum and henrik. Normal visualized pulmonary arteries. Normal visualized aortic arch and descending thoracic aorta. Normal visualized thoracic spine. Normal visualized ribs, clavicles, and shoulders. There is no demonstrated abnormality of the visualized soft tissue structures of the upper abdomen. RAD/Chest PA and Lateral IMPRESSION: Normal x-ray examination of the chest. Unchanged since September 2015. Electronically Signed: Aidan Sánchez, at 12:13 EDT Tel , Service support ,
[2021-02-08 20:08] LABS: QNTFERON TB Mitogen Value > 10.00 IU/mL (.); QNTFERON TB Nil Value 0 IU/mL (.); QNTFERON TB1+ Ag Value 0 IU/mL (.); QNTFERON TB2+ Ag Value 0 IU/mL (.)
[2021-02-08 22:46] LABS: QNTIFERON TB Positive Criteria Negative (Negative)
== END ==
PROVIDERS: PCP Family Medicine; Referring Provider Internal Medicine Pulmonary Disease; Visit Provider Internal Medicine Pulmonary Disease
DX: R91.1 Solitary pulmonary nodule (principal)
CPT/HCPCS: 36415; 71046; 86480

== ENCOUNTER → 2021-02-13 09:12 | Outpatient (CLI) | payer MEDICARE, SELFPAY ==
[2020-10-02 08:56] VITALS: BMI 34.4
--- NOTE | 2021-02-13 09:14 | BI_ITS ---
MAMMOGRAPHY - BILATERAL SCREENING REASON FOR EXAM: Female, 65 years old. Routine annual screening examination. PERTINENT HISTORY: Non-contributory. TECHNIQUE: Digital bilateral breast irene (3D mammographic acquisition) in the CC and MLO projections. 2-D mediolateral oblique (MLO) and craniocaudad (CC) views of both breasts were obtained. CAD: Full Field Digital Mammography with Computer Added Detection was performed. COMPARISON: No comparison mammograms available at this time. If any prior films become available, an addendum to this report can be generated. FINDINGS: Breast Composition: There are scattered areas of fibroglandular density. There are no dominant masses or suspicious calcifications. Benign appearing bilateral axillary lymph nodes. No other significant abnormalities are identified. BI/SCRN MAMM (CAD)W/IRENE BILAT IMPRESSION: Negative screening mammogram. Yearly followup mammogram recommended. (A) ASSESSMENT CATEGORY: BIRADS Category 2: Benign. A letter regarding these results will be sent to the patient by the facility within 30 days. Approximately 10% of breast cancers are not detected by mammography. A normal mammogram should not delay biopsy of a clinically suspicious abnormality. [id number] Electronically Signed: Claude Nunez MD at 10:44 EDT , Service support ,
--- NOTE | 2021-02-13 09:20 | BD_ITS ---
STUDY: DUAL ENERGY X-RAY ABSORPTIOMETRY / DXA REASON FOR EXAM: Female, 65 years old. Z780. The patient is postmenopausal. TECHNIQUE: Bone Mineral Density (BMD) measurements of lumbar spine and bilateral hips were obtained. COMPARISON: None. FINDINGS: Lumbar Spine (L1-L4): g/cm2 (1.118) / T-score (-0.4) / Z-score (1.2) Findings are suggestive of normal bone density with a low fracture risk. Left Femur Total: g/cm2 (1.013) / T-score (0.0) / Z-score (1.3) Left Femoral Neck: g/cm2 (0.881) / T-score (-1.1) / Z-score (0.4) Right Femur Total: g/cm2 (0.995) / T-score (-0.1) / Z-score (1.1) Right Femoral Neck: g/cm2 (0.915) / T-score (-0.9) / Z-score (0.6) BD/Dexa Bone Density Study IMPRESSION: The patient is considered osteopenic as outlined below according to World [employer] Organization (WHO) criteria with a low fracture risk. Reference Information: The T-score is the number of standard deviations above or below the standard which is normal for young adults at their peak bone mineral density. The World Health Organization (WHO) interprets the T-scores as follows: Above -1 Normal bone density Between -1 and -2.5 Osteopenia Equal to / or below -2.5 Osteoporosis As a practical clinical guideline, osteopenia may be graded as follows: Mild -1 through -1.5 Moderate -1.6 through -2.0 Severe -2.1 through -2.4 The Z-score is the number of standard deviations above or below age-matched controls. A Z-score of less than -1.5 would be considered abnormal. References: 1. NIH Osteoporosis and Related Bone Diseases www osteo.org 2. International Society for Clinical Densitometry www iscd.org 3. National Osteoporosis Foundation www nof.org Electronically Signed: Claude Nunez MD at 13:57 EDT , Service support ,
== END ==
PROVIDERS: PCP Family Medicine; Referring Provider Family Medicine; Visit Provider Family Medicine
DX: Z12.31 Encounter for screening mammogram for malignant neoplasm of breast (principal); Z78.0 Asymptomatic menopausal state
CPT/HCPCS: 77063; 77067; 77080

== ENCOUNTER → 2021-02-20 16:30 | Outpatient (CLI) | payer MEDICARE, SELFPAY ==
[2020-10-02 08:56] VITALS: BMI 34.4
--- NOTE | 2021-02-20 16:30 | PET_ITS ---
EXAMINATION: FDG PET-CT INDICATIONS: A 65-year-old female with reported history of pulmonary nodularity. COMPARISON EXAMINATION: CT of the chest report dated 01/24/21 INDEX LESION SIZE SUV INTERPRETATION Left upper lung-left upper lobe 18.4-mm (frame 187) 2.0 Quantitative criteria for viable neoplasm are not fulfilled, sequential radiologic investigation recommended Lower pelvis, distal rectal vault, nodular 10.6-mm (frame 40) 12.1 Warrants further investigation with direct visualization and/or digital examination as defined TECHNIQUE: Following the intravenous administration of 14.68 mCi of F-18 deoxyglucose via the left antecubital fossa, multiplanar image acquisitions of the neck, chest, abdomen and pelvis to level of mid thigh, obtained at one hour post radiopharmaceutical administration contemporaneously interpreted with the current CT of the neck, chest, abdomen and pelvis, to level of mid thigh, dated 02/20/[address] of the chest report dated 01/24/21 reveals: BLOOD GLUCOSE LEVEL:?? 135 mg/dl?HEIGHT:?62 inches?WEIGHT: 185 lbs. FINDINGS: 1. Focal increased glucose metabolism is defined in the left upper medial lung-left upper lobe generating a calculated maximal standard uptake value of 2.0. The maximal axial diameter of the non-calcified density on review of CT of the chest dated 02/20/21 is 18.4-mm (transverse). 2. Facilitated FDG distribution is apparent in the lower pelvis in the region of the distal rectal vault, nodular in presentation, generating a calculated maximal standard uptake value of 12.1. The maximal axial diameter of the corresponding metabolic abnormality on review of CT of the pelvis dated 02/20/21 is 10.6-mm (AP). 3. Normal physiologic distribution of the radiopharmaceutical is apparent in the hepatic (2.3) and splenic parenchyma, both renal units, bladder and remaining visualized intestinal tract. The visualized portion of the cerebral cortical-subcortical structures demonstrate symmetric and preserved glucose metabolism. Diffuse radiopharmaceutical concentration is noted in all four quadrants of the abdomen and pelvis. Pertinent CT findings are as follows: CHEST: There is atherosclerotic calcification defined in the thoracic aorta without evidence of dilatation-aneurysm formation. Coronary arterial calcification is observed. There are no additional parenchymal densities-nodules defined in the right and left hemithorax with discernible increased FDG uptake. ABDOMEN AND PELVIS: There is atherosclerotic calcification defined in the abdominal aorta without evidence of dilatation-aneurysm formation. Abdominal-pelvic arterial calcification is demonstrated. Right and left inguinal soft tissue densities with fatty hilus are ametabolic. SKELETAL: Degenerative changes are noted in the cervical, thoracic and lumbar spine without evidence of increased radiopharmaceutical concentration. PET/PET/CT Tumor Base -Thigh Init IMPRESSION: 1. The increase in glucose metabolism identified in the left upper lung-left upper lobe does not fulfill quantitative criteria for viable neoplasm. (Mcnally et al, Annals of Internal Medicine, 138:724, 2003). 2. Metabolic and/or anatomic stability may be ensured in the left upper lung-left upper lobe abnormality with repeat FDG PET study and/or CT of the thorax in 3-6 months if clinically indicated. (Xiu, Journal of Nuclear Medicine 45:88, P2004 [place], Seminars in Thoracic and Cardiovascular Surgery 14:292, 2001). 3. The increase in tracer uptake observed in the lower pelvis associated with distal rectal vault may warrant further investigation with direct visualization or digital examination secondary to quantitative degree of uptake in proximity to the anal verge. (Dobert et al, Journal of Nuclear Medicine, 30:S276, 2003). Electronic Signature Papo King D.O. Accurate Quantification of SUVs for this report are calculated using the exclusive [employer]? Technology.??Exclusive [place].S. Patent [employer]? Technology (U.S. Patent No. 10, [id number] 983). Standardization and correction of the FDG SUV metric allow for vendor non-specific objective quantitative comparison and otherwise unobtainable optimization of the sensitivity and specificity of the examination. Electronically Signed: Papo King DO at 11:47 EDT Tel , Service support ,
== END ==
PROVIDERS: PCP Family Medicine; Referring Provider Internal Medicine Pulmonary Disease; Visit Provider Internal Medicine Pulmonary Disease
DX: R91.8 Other nonspecific abnormal finding of lung field (principal)
CPT/HCPCS: 78815; A9552

== ENCOUNTER → 2021-03-22 05:47 | Outpatient (CLI) | payer MEDICARE, SELFPAY ==
[2020-10-02 08:56] VITALS: BMI 34.4
--- NOTE | 2021-03-22 06:08 | MRI_ITS ---
STUDY: MR PELVIS WITH T WITHOUT CONTRAST REASON FOR EXAM: Female, 65 years old. ABN PET SCAN OF COLON TECHNIQUE: Standardized fat and water weighted pulse sequences were obtained in all 3 orthogonal planes, pre-and post contrast administration. DOTAREM 18ML IV was administered for the contrast portion of the examination. COMPARISON: None. FINDINGS: Normal urinary bladder. Normal visualized small intestine. Normal visualized colon. There is absence of the uterus consistent with a prior hysterectomy. Normal visualized adnexa. There is no pelvic fluid. There is no pelvic mass lesion or lymphadenopathy. Normal visualized pelvic arteries. There are diffuse degenerative changes of the visualized lumbar spine. Normal abdominal wall. MRI/Pelvis W/WO Contrast IMPRESSION: Normal unenhanced and enhanced MRI of the pelvis. Specifically, no enhancing mass seen in the rectum. Electronically Signed: Leon Santoyo MD at 17:01 EDT Tel , Service support ,
[2021-03-22 06:19] LABS: Absolute Lymphocyte Count 1.62 X10^3/uL (0.83-4.51); Absolute Neutrophil Count 3.5 X10^3/uL (2.0-7.7); Basophil# 0.03 X10^3/uL; Basophil% 0.5 % (0-1); Eosinophil# 0.11 X10^3/uL; Eosinophils% 1.8 % (0-5); Hematocrit 31.8 % (37-47); Hemoglobin 8.5 g/dL (12.0-15.0); Lymphocyte # 1.62 X10^3/ul (0.83-4.51); Lymphocyte % 26.7 % (19-41); Mean Corp Hgb Conc 26.7 g/dL (32-36); Mean Corpuscular Hgb 20.1 pg (27.0-32.0); Mean Corpuscular Volume 75.2 fL (81-99); Mean Platelet Vol. 8.6 fl (6.2-12.0); Monocyte# 0.78 X10^3/uL; Monocyte% 12.9 % (0-10); NRBC Flagged by Analyzer 0 % (0-5); Neutrophil # 3.49 X10^3/uL (2.7-7.7); Neutrophil % 57.6 % (47-70); POSITIVE MORPHOLOGY YES; Platelet Count 277 K/mm3 (150-450); RBC Distribution Width CV 25.7 % (11.6-14.6); RBC Distribution Width SD 68.3 fl (35.1-43.9); Red Blood Count 4.23 M/mm3 (4.2-5.4); White Blood Count 6.1 K/mm3 (4.4-11.0)
[2021-03-22 06:20] LABS: Differential Indicated SCAN CRITERIA MET
[2021-03-22 06:35] LABS: ALB/GLOB Ratio 0.9 RATIO (0.9-2.4); AST(SGOT) 13 U/L (15-37); Alanine Aminotransfer ALT/SGPT 21 U/L (13-56); Albumin, Serum 3.4 g/dL (3.2-5.0); Alkaline Phosphatase 83 U/L (45-117); Anion Gap 7 (5-15); BUN 18 mg/dL (7-18); Calcium,Total 8.7 mg/dL (8.5-10.1); Chloride 106 mmol/L (98-107); Cholesterol 161 mg/dL (200); Creatinine, Serum 0.56 mg/dL (0.55-1.02); EST Glomerular Filtration Rate 115 mL/min (>60); Est Glom Filt Rate - Afr Amer 139 mL/min (>60); Globulin 3.7 g/dL (2.2-4.2); Glucose 161 mg/dL (74-106); High Density Lipoprotein 38 mg/dL; Potassium 4.2 mmol/L (3.5-5.1); Protein, Total 7.1 g/dL (6.4-8.2); Sodium Level 138 mmol/L (136-145); Triglycerides 267 mg/dL; Very Low Density Lipoprotein 53 mg/dL (5-40)
[2021-03-22 06:40] LABS: Anisocytosis 2+
[2021-03-22 07:49] LABS: Hemoglobin A1c 7.3 % (3.8-5.6)
== END ==
PROVIDERS: PCP Family Medicine; Referring Provider Family Medicine; Visit Provider Family Medicine
DX: R94.8 Abnormal results of function studies of other organs and systems (principal); I25.10 Atherosclerotic heart disease of native coronary artery without angina pectoris; E11.9 Type 2 diabetes mellitus without complications
CPT/HCPCS: 36415; 72197; 80053; 80061; 83036; 85025; A9575

== ENCOUNTER 2021-05-24 10:32 | Day surgery (SDC) | payer MEDICARE, SELFPAY ==
[2021-05-24] VITALS (7 sets, daily range): BP systolic 88–119; BP diastolic 46–72; PULSE 68–75; RESP 18; TEMP 35.9–36.4; O2SAT 93–98; BMI 33.5
[2021-05-24 11:30] LABS: Bedside Glucose 145 mg/dL (70-110)
--- NOTE | 2021-05-24 11:43 | H&P.OPEN ---
HPI - General HPI Narrative KAELYN DRUMMOND, is a 65 F who presents for flexible sigmoidoscopy due to enhancement in the rectum on PET scan on 02/20/2021. However MRI (03/22/2021) of the pelvis did not show any concerning masses. Patient's previous colonoscopy was in September 2020 she did have 5 last than 5 mm polyps in the rectum and distal descending colon which were removed at that time. Pathology did show some those to be benign colonic mucosa others to be tubular adenomas. [facility] Medical History (Updated 05/24/21 @ 11:[address] Qiana Grover MD) Adenomatous polyps Anemia Anxiety Atherosclerosis of coronary artery of [place] without angina pectoris Back pain Black tarry stools Bladder disease Cancer Cardiology follow-up encounter Claudication Dietary restriction Diverticulosis Essential (primary) hypertension Fatigue Gastritis History of echocardiogram History of edema History of stress test Hoarseness Hyperlipidemia Iron deficiency anemia Iron deficiency anemia due to chronic blood loss Leg cramps Lung mass Marijuana use Nicotine dependence Obesity Peripheral vascular occlusive disease Rectal bleeding Rheumatoid arthritis Smoker Type 2 diabetes mellitus Wears dentures Wears glasses Home Medications aspirin 81 mg PO DAILY 07/14/18 [History Last Taken 05/17/21] atorvastatin 40 mg tablet 40 mg PO DAILY #90 tab 03/23/20 [Rx Last Taken Unknown] cilostazol 100 mg tablet 100 mg PO BID tab 06/20/20 [History Last Taken Unknown] empagliflozin 10 mg PO DAILY 09/27/20 [History Last Taken Unknown] metformin 1,000 mg tablet 1,000 mg PO BID tab 09/29/20 [History Last Taken Unknown] lisinopril 10 mg tablet 10 mg PO QHS #90 tab 02/07/21 [Rx Last Taken Unknown] clopidogrel 75 mg tablet 75 mg PO QDAY #90 tab 02/26/21 [Rx Last Taken 05/17/21] calcium 600 mg PO DAILY 05/21/21 [History Last Taken Unknown] Allergy/AdvReac Type Severity Reaction Status Date / Time No Known Allergies Allergy Verified 05/21/21 14:35 Family History Sister Diabetes Breast cancer Brother Cancer throat Surgical History (Updated 05/21/21 @ 14:47 by Lisette Reid) History of angioplasty of peripheral vessel History of cholecystectomy History of coronary artery stent placement (10/10/15) History of esophagogastroduodenoscopy (EGD) History of hysterectomy History of left heart catheterization (10/09/15) Hx of colonoscopy Hx of heart artery stent Social History (Updated 05/07/21 @ 13:23 by Niru Dallas) Smoking Status: Light Smoker (<10/day) Tobacco: How many years used: 40 second hand exposure: Yes details: very rarely substance use type: does not use mary beth/buddhist: Presybeterian seatbelt use: always do you feel safe at home: Yes Past Medical/Surgical History Planned Operation Planned Operative Procedure/s: FLEXIBLE SIG. S.O.S: Yes Previous Hospitalizations/Surgeries HX Hospitalizations: No HX of Surgeries: galbladder, kidney stones removed, uterus removed. Any Problems With Anesthesia: No You/Your Family Experience Fever (Hyperthermia) With Anes: No Cholinesterase deficiency: No Cardiovascular Hx Chest Pain within Last 2 months: No Hx of Irregular Heartbeat and/or Afib: No Hx Heart Attack: No Hx Congestive Heart Failure: No Hx Rheumatic Fever: No Hx Hypertension: Yes (CONTROLLED [facility]) Hx Internal Defibrillator: No Hx Pacemaker: No Hx Cardiac Catheterization: No ([facility] 2015) Hx Cardiac Surgery/Stents/Etc.: No Hx Stress Test: Yes ([facility] stress echo 08/2019) Hx Pain in Legs when Walking/Leg Cramps: Yes (had pvd r/t smoking) Respiratory Chronic Cough: No HX of Shortness of Breath: No Hoarseness: No Hx Chronic Obstructive Pulmonary Disease (COPD): No Hx Asthma: No Hx Emphysema: No Hx Sleep Apnea: No Hx Respiratory Tract Infection/Cold (presently): No Do You Snore Loudly (louder than talking or can be heard): No Do You Often Feel Tired/ Fatigued/ Sleepy Dring Daytime?: No Has Anyone Observed You Stop Breathing During Sleep?: No Result (for STOP score): Negative Hx Smoking: Yes Smoking Status: Light Smoker (<10/day) Gastrointestinal Hx Gastroesophageal Reflux: No Hx Gastrointestinal Disorders: No Hx Gastrointestinal Bleed: No Hx Ulcer: No Hx Hiatal Hernia: No Difficulty Chewing/Swallowing: No Special diet followed at home: No Hx Unplanned Weight Loss of 20#: No HX Unplanned Weight Gain of 20#: No Neurological Hx Seizures: No HX Syncope/Blackout Spells/Unconsciousness: No Hx Transient Ischemic Attacks (TIA): No Hx Multiple Sclerosis: No Hx Parkinson's Disease: No Hx Head/Neck Injury: No Hx Headaches: No Hx Back Injury/Pain: No Recent Onset of Speech Difficulty: No Restless Legs: No Does patient have nerve stimulator: No Blood Disorder Hx Leukemia: No Bleeding Tendencies: No Hx Deep Vein Thrombosis: No Hx High Cholesterol: Yes (on atorvastatin) Blood Transmitted Disease: No Hx Hepatitis: No Hx Cirrhosis: No Hx Anemia: No Hx Blood Disorders: No Reproduction : No Hx Hysterectomy: Yes Are You Post Menopause: Yes Genitourinary Hx Renal Disease: No Hx Dialysis: No Musculoskeletal Hx Arthritis: Yes Hx Rheumatoid Arthritis: No Hx Gout: No Recent Onset of an Orthopedic Problem: No Endocrine Hx Diabetes: Yes Insulin: No Thyroid Disease: No Hx Steroid Therapy: No Psycho/Social Hx Substance Use: No Hx Alcohol Use: Yes (social) Hx Anxiety: No Hx Depression: No Mental Illness: No Hx Dementia: No Miscellaneous Hx Cancer: Yes (CERVICAL) Recent Exposure to Contagious Disease: No Hx of C-Diff: No Any Loose Teeth: No (dentures) Allergies No Known Allergies Allergy (Verified 05/21/21 14:35) Discharge Is Pt Admitted From a Longterm, or a Retirement: No After D/C, Where Do you Plan to Go: Return Home From the [facility] History Number of Risk Factors: 5 Vital Signs Vital Signs Vital Signs: 05/24/21 11:18 Temperature 97.6 F L Temperature Source Temporal Pulse Rate 68 Respiratory Rate 18 Respiratory Pattern Normal Blood Pressure 119/72 Blood Pressure Mean 87 Blood Pressure Source Monitor Blood Pressure Position Semi-Fowlers Blood Pressure Location Right Arm Pulse Ox 97 Oxygen Delivery Method Room Air Weight Weight: 183 lb 6.4 oz Body Mass Index (BMI) 33.5 Physical Exam Const alert, oriented x3 and no apparent distress HEENT normocephalic and head/scalp atraumatic Resp normal respiratory effort Cardio regular rate GI soft to palpation and non-tender; Negative for non-distended Palpation: Negative for guarding Extremity no clubbing, cyanosis or edema Neuro CN's II-XII intact bilaterally Psych mental status grossly normal Assessment & Plan Assessment/Plan (1) Abnormal gastrointestinal PET scan: Procedure Criteria Type of Procedure Procedure Type: Elective Elective Risks - COVID COVID Risk Discussion: The surgeon/proceduralist and patient have discussed in detail the risk of exposure to and/or potential harm posed by the COVID-19 virus with having a surgery/procedure at this time versus the risk of delaying the surgery/procedure. It is not possible to know either the risk of delaying the surgery or procedure or chance of getting an infection with perfect accuracy, but a joint decision was made between the patient and the surgeon/proceduralist to proceed at this time with the scheduled surgery/procedure as indicated on the consent form. Surgery Risks - Colonoscopy Risks Include but are not Limited To: Risks include but are not limited to: Bleeding, perforation requiring further surgery, inability to complete colonoscopy requiring barium enema.
--- NOTE | 2021-05-24 12:00 | COLBX_PTH ---
PATIENT: KAELYN DRUMMOND LOC: EN U#:[id number] AGE/SX: 65/F ROOM: RE05/24/[address]: Dr. Qiana Grover MD : 1955 BED: DIS: 05/24/2021 SPEC #: [id number] RECD: 05/24/21 12:29 STATUS: VALERIO REHernan #: [id number] RYDER: 05/24/21 12:[address]: Qiana Grover DEPT: SURGICAL PATHOLOGY RECD BY: Nancy Bailon ENTERED: 05/24/21 13:26 SP TYPE: COLON BX OTHR DR: Dr. Ludwin Christianson MD Tissues: A - Sigmoid colon biopsy B - Rectum, NOS Procedures: Surgery Specimen Level IV HEADER OPERATION: Flexible sigmoidoscopy (MAC) PRE-OP DIAGNOSIS: Abnormal GI PET scan TISSUE SUBMITTED: A ? Distal sigmoid polyp biopsy, B ? Rectal polyps biopsy (x2) MICROSCOPIC DIAGNOSIS A. Distal sigmoid colon polyp, biopsy: Tubular adenoma. B. Rectal polyps, biopsy: Fragments of colonic mucosa with focal hyperplastic change. AM:adrienne 05/25/2021 MICROSCOPIC DESCRIPTION Slides are reviewed. GROSS DESCRIPTION A - Received in fixative is one container labeled with the patient's name and designated distal sigmoid polyp biopsy. The specimen consists of multiple irregular fragments of light mcmahon soft tissue that in aggregate measure 0.5 x 0.5 x 0.1 cm. The specimen is totally submitted in one cassette. B - Received in fixative is one container labeled with the patient's name and designated rectal polyp biopsy. The specimen consists of multiple irregular fragments of light mcmahon soft tissue that in aggregate measure 0.4 x 0.3 x 0.1 cm. The specimen is totally submitted in one cassette. / SJ:adrienne 05/24/21 TC:5 CPT: 03150 x2
--- NOTE | 2021-05-24 12:15 | OP.CCLET_ITS ---
05/24/2021 Ludwin Christianson [address] [place] [address] Re : Flexible Sigmoidoscopy procedure for Anitra Powers Dear Dr. Christianson This procedure was performed on May. My impressions and recommendations are as follows: Impressions : - Hemorrhoids found on perianal exam. - Three less than 5 mm polyps in the rectum and in the sigmoid colon, removed with a cold biopsy forceps. Resected and retrieved. - The examination was otherwise normal. Recommendations : - Continue present medications. - Discharge patient to home. My findings are described in the full procedure note, which is enclosed. If I can be of further assistance, please feel free to contact me at Doctor phone number(s): , Work: . Sincerely, MD Qiana Culver MD 05/24/2021 12:14:48 PM This report has been signed electronically.
--- NOTE | 2021-05-24 12:15 | OP.FLEXSIG_ITS ---
Patient Name: Anitra Powers Procedure Date: 05/24/2021 11:53 AM Date of : 1955 Age: 65 Procedure: Flexible Sigmoidoscopy Indications: Abnormal PET scan of the GI tract Providers: Qiana Grover MD Referring MD: Ludwin Christianson Medicines: Monitored Anesthesia Care Patient Profile: This is a 65 year old female. Last Colonoscopy: within the past year. Complications: No immediate complications. Procedure: Pre-Anesthesia Assessment: - Prior to the procedure, a History and Physical was performed, and patient medications and allergies were reviewed. The patient's tolerance of previous anesthesia was also reviewed. The risks and benefits of the procedure and the sedation options and risks were discussed with the patient. All questions were answered, and informed consent was obtained. Prior Anticoagulants: The patient has taken no previous anticoagulant or antiplatelet agents. ASA Grade Assessment: Per anesthesia. After reviewing the risks and benefits, the patient was deemed in satisfactory condition to undergo the procedure. After obtaining informed consent, the endoscope was passed under direct vision. Throughout the procedure, the patient's blood pressure, pulse, and oxygen saturations were monitored continuously. The pediatric colonoscope was introduced through the anus and advanced to the descending colon. The flexible sigmoidoscopy was accomplished without difficulty. The patient tolerated the procedure well. The quality of the bowel preparation was good. Scope In: 11:57:42 AM Scope Withdrawal Time 0 hours 6 minutes 17 seconds Scope Out: 12:08:57 PM Total Procedure Duration Time 0 hours 11 minutes 15 seconds Findings: Hemorrhoids were found on perianal exam. Three sessile polyps were found in the rectum and sigmoid colon. The polyps were less than 5 mm in size. These polyps were removed with a cold biopsy forceps. Resection and retrieval were complete. The exam was otherwise without abnormality. Impression: - Hemorrhoids found on perianal exam. - Three less than 5 mm polyps in the rectum and in the sigmoid colon, removed with a cold biopsy forceps. Resected and retrieved. - The examination was otherwise normal. Recommendation: - Continue present medications. - Discharge patient to home. Procedure Code(s): --- Professional --- 77006, Sigmoidoscopy, flexible; with biopsy, single or multiple Diagnosis Code(s): --- Professional --- K64.9, Unspecified hemorrhoids K62.1, Rectal polyp D12.5, Benign neoplasm of sigmoid colon R93.3, Abnormal findings on diagnostic imaging of other parts of digestive tract CPT copyright 2017 [employer]. All rights reserved. The codes documented in this report are preliminary and upon fire safety inspector review may be revised to meet current compliance requirements. MD Qiana Culver MD 05/24/2021 12:14:48 PM This report has been signed electronically. Number of Addenda: 0 Note Initiated On: 05/24/2021 11:53 AM
== END 2021-05-24 12:59 ==
LOC: EN 10:32 → AC 10:33
PROVIDERS: PCP Family Medicine; Referring Provider Family Medicine; Visit Provider Surgery
PROC: 0DJD8ZZ Inspection of Lower Intestinal Tract, Via Natural or Artificial Opening Endoscopic (ICD-10-PCS; CPT 45330; principal; 2021-05-24 11:55)
DX: K62.1 Rectal polyp (principal); D12.5 Benign neoplasm of sigmoid colon; K64.9 Unspecified hemorrhoids; R93.3 Abnormal findings on diagnostic imaging of other parts of digestive tract; I25.10 Atherosclerotic heart disease of native coronary artery without angina pectoris; I10 Essential (primary) hypertension; E78.5 Hyperlipidemia, unspecified; D50.9 Iron deficiency anemia, unspecified; E11.51 Type 2 diabetes mellitus with diabetic peripheral angiopathy without gangrene; F17.200 Nicotine dependence, unspecified, uncomplicated; F41.9 Anxiety disorder, unspecified; M06.9 Rheumatoid arthritis, unspecified; Z79.82 Long term (current) use of aspirin; Z79.84 Long term (current) use of oral hypoglycemic drugs; Z86.010 Personal history of colon polyps; Z87.442 Personal history of urinary calculi; Z90.49 Acquired absence of other specified parts of digestive tract; Z90.710 Acquired absence of both cervix and uterus
CPT/HCPCS: 45331; 82962; 88305; J7120; J2405

== ENCOUNTER → 2021-07-18 08:23 | Outpatient (CLI) | payer MEDICARE, SELFPAY ==
[2021-07-18 10:13] LABS: Absolute Lymphocyte Count 1.44 X10^3/uL (0.83-4.51); Absolute Neutrophil Count 3.4 X10^3/uL (2.0-7.7); Basophil# 0.03 X10^3/uL; Basophil% 0.5 % (0-1); Eosinophil# 0.11 X10^3/uL; Hematocrit 42.4 % (37-47); Hemoglobin 13.1 g/dL (12.0-15.0); Lymphocyte # 1.44 X10^3/ul (0.83-4.51); Mean Corp Hgb Conc 30.9 g/dL (32-36); Mean Corpuscular Hgb 25.6 pg (27.0-32.0); Mean Corpuscular Volume 82.8 fL (81-99); Mean Platelet Vol. 9.2 fl (6.2-12.0); Monocyte# 0.56 X10^3/uL; Monocyte% 10.1 % (0-10); NRBC Flagged by Analyzer 0 % (0-5); Neutrophil # 3.38 X10^3/uL (2.7-7.7); Neutrophil % 61.2 % (47-70); POSITIVE MORPHOLOGY YES; Platelet Count 296 K/mm3 (150-450); RBC Distribution Width CV 26.6 % (11.6-14.6); RBC Distribution Width SD 78.6 fl (35.1-43.9); Red Blood Count 5.12 M/mm3 (4.2-5.4); White Blood Count 5.5 K/mm3 (4.4-11.0)
[2021-07-18 10:21] LABS: Differential Indicated SCAN CRITERIA MET
[2021-07-18 10:48] LABS: Anisocytosis 1+
[2021-07-18 10:52] LABS: Hemoglobin A1c 5.8 % (3.8-5.6)
[2021-07-18 10:54] LABS: ALB/GLOB Ratio 0.9 RATIO (0.9-2.4); AST(SGOT) 14 U/L (15-37); Alanine Aminotransfer ALT/SGPT 22 U/L (13-56); Albumin, Serum 3.3 g/dL (3.2-5.0); Alkaline Phosphatase 71 U/L (45-117); Anion Gap 9 (5-15); BUN 17 mg/dL (7-18); BUN/Creat Ratio 26.2 RATIO (10-20); Calcium,Total 8.8 mg/dL (8.5-10.1); Chloride 108 mmol/L (98-107); Cholesterol 160 mg/dL (200); Creatinine, Serum 0.65 mg/dL (0.55-1.02); EST Glomerular Filtration Rate 97 mL/min (>60); Est Glom Filt Rate - Afr Amer 118 mL/min (>60); Globulin 3.7 g/dL (2.2-4.2); Glucose 139 mg/dL (74-106); High Density Lipoprotein 47 mg/dL; Potassium 4.1 mmol/L (3.5-5.1); Sodium Level 141 mmol/L (136-145); Triglycerides 162 mg/dL; Very Low Density Lipoprotein 32 mg/dL (5-40)
== END ==
PROVIDERS: PCP Family Medicine; Referring Provider Family Medicine; Visit Provider Family Medicine
DX: E11.9 Type 2 diabetes mellitus without complications (principal)
CPT/HCPCS: 36415; 80053; 80061; 83036; 85025

== ENCOUNTER 2021-09-05 07:39 | Outpatient (CLI) | payer MEDICARE, SELFPAY ==
[2020-10-02 08:56] VITALS: BMI 34.4
--- NOTE | 2021-09-05 07:49 | CT_ITS ---
STUDY: CT CHEST WITHOUT CONTRAST REASON FOR EXAM: Female, 65 years old. Pulmonary nodule RADIATION DOSAGE (If Supplied By Facility): CTDIvol = ( 11.37 ) mGy, DLP = ( 378.48 ) mGycm TECHNIQUE: Transaxial imaging was performed without the administration of intravenous contrast material. Coronal and sagittal reformatted images were created. Individualized dose optimization techniques were used for this CT. COMPARISON: PET CT dated 02/20/21. Chest CT dated 01/24/21. FINDINGS: There is stable mild emphysematous changes noted in the lungs. There are no pulmonary infiltrates or pleural effusions. There is a stable 2.0 x 1.5 cm spiculated nodule medially in the left upper lobe which abuts the mediastinum. There are no new pulmonary nodules or masses. There is no pneumothorax. The heart and pericardium are within normal limits. Again noted are coronary artery calcifications. There is no thoracic lymphadenopathy. There is no evidence of thoracic aortic aneurysm. Images through the upper abdomen demonstrate no significant abnormality. There are no destructive osseous lesions. CT/Chest without Contrast IMPRESSION: Stable mild emphysema with a stable 2.0 x 1.5 cm spiculated nodule medially in the left upper lobe. Although the PET CT was negative, this remains suspicious for neoplasm. If indicated, tissue sampling can be performed. No new nodules or masses. Coronary artery disease. Electronically Signed: Mark Molina MD at 9:24 EST Tel , Service support ,
== END 2021-09-05 23:59 | disposition short-term general hospital (02) ==
LOC: CT 07:47
PROVIDERS: PCP Family Medicine; Referring Provider Internal Medicine Pulmonary Disease; Visit Provider Internal Medicine Pulmonary Disease
DX: R91.1 Solitary pulmonary nodule (principal)
CPT/HCPCS: 71250

== ENCOUNTER 2021-10-27 21:30 | Emergency (ER) | payer MEDICARE, SELFPAY ==
[2021-10-27 21:33] VITALS: BP 120/66; PULSE 91; RESP 18; TEMP 35.8; O2SAT 93; BMI 31.4
--- NOTE | 2021-10-27 22:03 | CT_ITS ---
STUDY: CT BRAIN WITHOUT CONTRAST REASON FOR EXAM: Female, 65 years old. head injury RADIATION DOSAGE (If Supplied By Facility): CTDIvol = ( 44.99 ) mGy, DLP = ( 796.11 ) mGycm TECHNIQUE: Transaxial CT imaging of the brain was performed without administration of intravenous contrast material. Individualized dose optimization techniques were used for this CT. COMPARISON: No relevant priors. FINDINGS: Right posterior scalp hematoma and laceration. Normal calvarium. Acute left subdural hematoma measuring 3.5 x 1.0 cm with additional subarachnoid hemorrhage in the right and left frontal lobes as well as subarachnoid hemorrhage anterior to the bren. No mass effect or midline shift. Developing cerebral edema in the posterior left hemisphere. No evidence of uncal herniation CT/Brain/Head without Contrast IMPRESSION: 1. Acute left posterior subdural hematoma 2. Subarachnoid hemorrhage in the bilateral frontal lobes as well as the space anterior to the bren 3. Developing left posterior cerebral edema N.B. : The above Results were Read Back by Maksim Walker DO to Dr. Ken Vasques MD, and understanding confirmed on 10/27/2021 22:49:43 (ET). Electronically Signed: Maksim Walker DO at 22:50 EST ,
--- NOTE | 2021-10-27 22:03 | CT_ITS ---
STUDY: CT CERVICAL SPINE WITHOUT CONTRAST REASON FOR EXAM: Female, 65 years old. head injury RADIATION DOSAGE (If Supplied By Facility): CTDIvol = ( 21.72 ) mGy, DLP = ( 1234.05 ) mGycm TECHNIQUE: High resolution transaxial imaging was performed without contrast material. Sagittal and coronal images were reconstructed. Individualized dose optimization techniques were used for this CT. COMPARISON: None FINDINGS: Normal craniovertebral junction. Normal anterior atlantoaxial articulation. Normal odontoid process. Normal cervical lordosis. Normal vertebral bodies and posterior osseous elements. Mild multilevel degenerative disc disease without critical stenosis. No acute fracture or listhesis. Normal visualized soft tissue structures. CT/Spine Cervical without Contras IMPRESSION: Multilevel degenerative changes, as described above. Electronically Signed: Maksim Walker DO at 22:49 EST ,
--- NOTE | 2021-10-27 22:09 | EDS_ITS ---
HPI History of Present Illness Chief Complaint: Fall Narrative Narrative: Patient is a 5-year-old female who states she was out drinking and dancing with her friends this evening. She states about 2 hours prior to arrival she was dancing when she lost her balance and fell. She struck the back of her head on a table as she went down. She denies any loss of consciousness but does states she takes Plavix and Pletal. She denies any nausea vomiting light sensitivity or change in vision since the head trauma but because of the injury and the fact she sustained a laceration there was concern she will need possible closure and comes in for evaluation. [facility] Medical History Adenomatous polyps Anemia Anxiety Atherosclerosis of coronary artery of [place] heart without angina pectoris Back pain Black tarry stools Bladder disease Cancer Cardiology follow-up encounter Claudication Dietary restriction Diverticulosis Essential (primary) hypertension Fatigue Gastritis History of echocardiogram History of edema History of stress test Hoarseness Hyperlipidemia Iron deficiency anemia Iron deficiency anemia due to chronic blood loss Left upper lobe pulmonary nodule Leg cramps Lung mass Marijuana use Nicotine dependence Obesity Peripheral vascular occlusive disease Rectal bleeding Rheumatoid arthritis Smoker Type 2 diabetes mellitus Wears dentures Wears glasses Home Medications aspirin 81 mg PO DAILY 07/14/18 [History Last Taken 05/17/21] atorvastatin 40 mg tablet 40 mg PO DAILY #90 tab 03/23/20 [Rx Last Taken Unknown] cilostazol 100 mg tablet 100 mg PO BID tab 06/20/20 [History Last Taken Unknown] metformin 1,000 mg tablet 1,000 mg PO BID tab 09/29/20 [History Last Taken Unknown] calcium carbonate 600 mg-vitamin D3 5 mcg (200 unit) capsule 1 cap PO DAILY cap 10/01/21 [History Last Taken Unknown] clopidogrel 75 mg tablet 75 mg PO QDAY #90 tab 10/01/21 [Rx Last Taken Unknown] docusate sodium 100 mg capsule 100 mg PO .COMPLEX 10/01/21 [History Last Taken Unknown] empagliflozin 25 mg tablet 25 mg PO DAILY tab 10/01/21 [History Last Taken Unknown] lisinopril 10 mg tablet 10 mg PO QHS #90 tab 10/01/21 [Rx Last Taken Unknown] oxybutynin chloride 15 mg tablet,extended release 24 hr 15 mg PO DAILY tab 10/01/21 [History Last Taken Unknown] Allergy/AdvReac Type Severity Reaction Status Date / Time No Known Allergies Allergy Verified 10/27/21 21:36 Family History Sister Diabetes Breast cancer Brother Cancer throat Surgical History History of angioplasty of peripheral vessel History of cholecystectomy History of coronary artery stent placement (10/10/15) History of esophagogastroduodenoscopy (EGD) History of hysterectomy History of left heart catheterization (10/09/15) Hx of colonoscopy Hx of heart artery stent Social History Smoking Status: Light Smoker (<10/day) Tobacco: How many years used: 40 second hand exposure: Yes details: very rarely substance use type: does not use mary beth/alevism: Protestant seatbelt use: always do you feel safe at home: Yes ROS ROS ED Constitutional Constitutional ED: Denies chills or fever(s) Eyes Eyes: Denies change in vision ENT ENT ED: Denies sore throat Cardiovascular Cardiovascular: Denies chest pain Respiratory/Chest Respiratory/Chest: Denies cough or dyspnea Gastrointestinal Gastrointestinal: Denies abdominal pain, diarrhea, nausea or vomiting Genitourinary Genitourinary ED: Denies dysuria Musculoskeletal Musculoskeletal: Denies back pain, myalgias or neck pain Integumentary Reports other Details: Positive head/scalp laceration ; Denies rash Neurologic Neurologic: Reports headache(s) Hematologic/Lymphatic Hematologic/Lymphatic: Reports easy bleeding and easy bruising EXAM Physical Exam Const Vital Signs: 10/27/21 21:33 10/27/21 21:38 10/27/21 23:05 Temperature 96.4 F L Temperature Source Temporal Pulse Rate 91 88 Respiratory Rate 18 17 Respiratory Effort Normal Non-Labored Respiratory Depth Normal Respiratory Pattern Irregular Blood Pressure 120/66 109/64 Blood Pressure Mean 84 79 Pulse Ox 93 96 Oxygen Delivery Method Room Air Room Air Room Air Positive well nourished and well developed General Appearance ED: well developed HEENT HEENT Narrative: Patient has a 2 x 3 hematoma to the right occipital portion of her scalp. There is a 1.5 cm linear subcutaneous layer deep laceration in the center of this draining minimal ooze of blood. Otherwise no foreign body or signs of depressed/basilar skull fracture. Eyes EOMs intact bilaterally Eyes Narrative: Pupils are dilated and sluggish to respond consistent with alcohol use. There is mild scleral injection noted Neck supple Neck Narrative: No bony deformity or step-off of the cervical spine no midline pain with palpation. Patient has full active range of motion without pain Chest Wall palpation of chest normal Resp normal respiratory effort and clear to auscultation bilaterally Cardio regular rate and regular rhythm GI normal to inspection, nondistended, normoactive bowel sounds, non-tender, non- distended and no masses Auscultation: normoactive bowel sounds Palpation: soft Back/Spine Back/Spine Narrative: No bony deformity or step-off of the thoracic or lumbar spine no midline pain with palpation Extremity normal to inspection Extremity Narrative: Pelvis is stable there is no shortening or external rotation of either lower extremity. Patient can move both upper and lower extremities without difficulty through full active range of motion Neuro oriented x3 and CN's II-XII intact bilaterally Sensorium / Orientation: alert Motor Exam: strength 5/5 throughout Psych mental status grossly normal Skin Skin Narrative: Hematoma laceration to the occipital portion of the scalp as documented above MDM MDM MDM Narrative Medical decision making narrative: Patient presented to the ER intoxicated but otherwise awake and alert with no acute distress. She had a large hematoma over top the occiput and states that she takes 2 antiplatelets and as well has alcohol more this evening increasing her chance for bleeding issues. Secondary to this she had CTs of the head and cervical spine obtained. CT of the spine revealed no acute trauma but the head CT did show a subdural hemorrhage. We do not have neurosurgery available at this institution and therefore patient will be transferred to [facility]. She will go ER to ER and will be evaluated by the trauma team. The patient's mental status did seem to slightly diminished while in the ER and is unsure if this is due to the underlying brain bleed or the alcohol on board and therefore 4 mcg of DDAVP were given. I do not feel there is necessarily need to fly the patient because she is still awake and protecting her airway and overall her mental status has remained consistent with the alcohol intoxication when I first evaluated her. The reason she is going to [facility] is the fact we do not have neurosurgery and patient/family did request the site. The patient did have 2 sutures placed to the small laceration over top the hematoma. The area was cleaned with chlorhexidine and then anesthetized with 8 mL of 2% lidocaine with epinephrine in local fashion. The area was copiously irrigated with normal saline and then two 4 Ethilon sutures were placed in simple rapid fashion. This brought the wound together good approximation. Patient tolerated procedure well without complication. Lab Data Attestation: I reviewed the patient's lab results. Labs: Laboratory Results - last 24 hr 10/27/21 10/27/21 10/27/21 22:46 22:46 22:46 WBC 9.2 RBC 4.16 L Hgb 13.4 Hct 40.9 MCV 98.3 MCH 32.2 H MCHC 32.8 RDW Std Deviation 66.9 H RDW Coeff of Martha 18.5 H Plt Count 273 MPV 8.9 Immature Gran % (Auto) 0.400 Neut % (Auto) 74.4 H Lymph % (Auto) 16.5 L [place] % (Auto) 7.4 Eos % (Auto) 1.0 Baso % (Auto) 0.3 Absolute Neuts (auto) 6.9 Absolute Lymphs (auto) 1.52 Nucleated RBC % 0 PT 14.1 INR 1.2 APTT 31.8 Sodium 139 Potassium 3.5 Chloride 107 Carbon Dioxide 21.0 Anion Gap 11 BUN 10 Creatinine 0.54 L Estim Creat Clear Calc 45.78 Est GFR (MDRD) Af Amer 147 Est GFR (MDRD) Non-Af 121 BUN/Creatinine Ratio 18.7 Glucose 126 H Calcium 8.7 Radiography Diagnostic Testing: Clinical Impression(s) from Imaging Studies Brain CT 10/27/21 22:03 IMPRESSION: 1. Acute left posterior subdural hematoma 2. Subarachnoid hemorrhage in the bilateral frontal lobes as well as the space anterior to the bren 3. Developing left posterior cerebral edema N.B. : The above Results were Read Back by Maksim Walker DO to Dr. Ken Vasques MD, and understanding confirmed on 10/27/2021 22:49:43 (ET). Electronically Signed: Maksim Walker DO at 22:50 EST , ADDENDUM: 10/27/21 2257 IMPRESSION: 1. Acute left posterior subdural hematoma 2. Subarachnoid hemorrhage in the bilateral frontal lobes as well as the space anterior to the bren 3. Developing left posterior cerebral edema N.B. : The above Results were Read Back by Maksim Walker DO to Dr. Ken Vasques MD, and understanding confirmed on 10/27/2021 22:49:43 (ET). Electronically Signed: Maksim Walker DO at 22:50 EST , Cervical Spine CT 10/27/21 22:03 IMPRESSION: Multilevel degenerative changes, as described above. Electronically Signed: Maksim Walker DO at 22:49 EST , Critical Care Time Critical Care Time: Yes Critical care time (excluding procedures): - (Critical care time of 31 minutes) Discharge Plan Triage Chief Complaint: Fall ED Provider: Ken Vasques Dx/Rx/DC Orders Clinical Impression: Subdural hemorrhage, Accidental fall, Laceration of scalp, Alcohol intoxication Prescriptions: No Action cilostazol 100 mg tablet 100 mg PO BID RF: 0 metformin 1,000 mg tablet 1,000 mg PO BID RF: 0 oxybutynin chloride 15 mg tablet extended release 24hr 15 mg PO DAILY RF: 0 Jardiance 25 mg tablet 25 mg PO DAILY RF: 0 docusate sodium [Colace] 100 mg capsule 100 mg PO .COMPLEX RF: 0 calcium carbonate-vitamin D3 600 mg-5 mcg (200 unit) capsule 1 cap PO DAILY RF: 0 lisinopril 10 mg tablet 10 mg PO QHS Qty: 90 RF: 3 clopidogrel [Plavix] 75 mg tablet 75 mg PO QDAY Qty: 90 RF: 3 aspirin 81 MG tablet,delayed release (DR/EC) 81 mg PO DAILY RF: 0 atorvastatin 40 mg tablet 40 mg PO DAILY Qty: 90 RF: 4 Primary Care Provider: Ludwin Christianson Referrals: Ludwin Christianson MD [Primary Care Provider] - Disposition Disposition: Acute Care Hospital Discharge Location: [facility]
[2021-10-27] MEDS: Lidocaine 2% /Epi 1:100 (20ml) 20 ML VIAL INFILT (22:17)
[2021-10-27 22:59] LABS: Absolute Lymphocyte Count 1.52 X10^3/uL (0.83-4.51); Absolute Neutrophil Count 6.9 X10^3/uL (2.0-7.7); Basophil# 0.03 X10^3/uL; Basophil% 0.3 % (0-1); Eosinophil# 0.09 X10^3/uL; Hematocrit 40.9 % (37-47); Hemoglobin 13.4 g/dL (12.0-15.0); Lymphocyte # 1.52 X10^3/ul (0.83-4.51); Lymphocyte % 16.5 % (19-41); Mean Corp Hgb Conc 32.8 g/dL (32-36); Mean Corpuscular Hgb 32.2 pg (27.0-32.0); Mean Corpuscular Volume 98.3 fL (81-99); Mean Platelet Vol. 8.9 fl (6.2-12.0); Monocyte# 0.68 X10^3/uL; Monocyte% 7.4 % (0-10); NRBC Flagged by Analyzer 0 % (0-5); Neutrophil # 6.86 X10^3/uL (2.7-7.7); Neutrophil % 74.4 % (47-70); POSITIVE MORPHOLOGY YES; Platelet Count 273 K/mm3 (150-450); RBC Distribution Width CV 18.5 % (11.6-14.6); RBC Distribution Width SD 66.9 fl (35.1-43.9); Red Blood Count 4.16 M/mm3 (4.2-5.4); White Blood Count 9.2 K/mm3 (4.4-11.0)
[2021-10-27 23:05] VITALS: BP 109/64; PULSE 88; RESP 17; O2SAT 96
[2021-10-27 23:05] LABS: International Normalized Ratio 1.2; Partial Thromboplast Time 31.8 Seconds (24.1-36.2); Prothrombin Time (Protime)PT. 14.1 SECONDS (11.7-14.9)
[2021-10-27 23:07] LABS: Anion Gap 11 (5-15); BUN 10 mg/dL (7-18); BUN/Creat Ratio 18.7 RATIO (10-20); Calcium,Total 8.7 mg/dL (8.5-10.1); Chloride 107 mmol/L (98-107); Creatinine, Serum 0.54 mg/dL (0.55-1.02); EST Glomerular Filtration Rate 121 mL/min (>60); Est Glom Filt Rate - Afr Amer 147 mL/min (>60); Estimated Creatinine Clearance 45.78 ml/min; Glucose 126 mg/dL (74-106); Potassium 3.5 mmol/L (3.5-5.1); Sodium Level 139 mmol/L (136-145)
[2021-10-27 23:10] LABS: Differential Indicated SCAN CRITERIA MET
--- NOTE | 2021-10-27 23:28 | NURSING ---
Pt placed on heart monitor sr. .Dr bassett asked about c collar no because spine was cleared, Asked about doing NIH. also said no
[2021-10-27 23:29] LABS: Differential Comment SCANNED
[2021-10-27] MEDS: Desmopressin Acetate 4 MCG/ML Ampul IV (23:33)
[2021-10-27 23:37] VITALS: BP 148/101; PULSE 84; RESP 24; TEMP 36.6; O2SAT 98
== END 2021-10-27 23:46 | disposition short-term general hospital (02) ==
PROVIDERS: Emergency Provider Emergency Medicine; PCP Family Medicine; Visit Provider Emergency Medicine
DX: S01.01XA Laceration without foreign body of scalp, initial encounter (principal); F10.129 Alcohol abuse with intoxication, unspecified; I62.00 Nontraumatic subdural hemorrhage, unspecified; E11.9 Type 2 diabetes mellitus without complications; F17.200 Nicotine dependence, unspecified, uncomplicated; E78.5 Hyperlipidemia, unspecified; I25.10 Atherosclerotic heart disease of native coronary artery without angina pectoris; I10 Essential (primary) hypertension; W19.XXXA Unspecified fall, initial encounter; Z79.899 Other long term (current) drug therapy
CPT/HCPCS: 70450; 72125; 80048; 82077; 85025; 85610; 85730; 99285; A4216; J2597

== ENCOUNTER → 2021-12-06 | Outpatient (CLI) | payer MEDICARE, SELFPAY ==
[2021-12-06 08:06] LABS: Bacteria 0 SEEN /hpf (None Seen); Mucous, Urine 0 SEEN /hpf (<or=2+); Red Blood Cells-Urine 0 SEEN /hpf (0-5); Squamous Epithelial Cells - UA 0 SEEN /hpf (5-10); White Blood Cells 0 SEEN /hpf (0-5)
[2021-12-06 09:54] LABS: Absolute Lymphocyte Count 1.42 X10^3/uL (0.83-4.51); Basophil# 0.03 X10^3/uL; Basophil% 0.4 % (0-1); Eosinophil# 0.06 X10^3/uL; Eosinophils% 0.8 % (0-5); Hematocrit 39.4 % (37-47); Hemoglobin 12.1 g/dL (12.0-15.0); Lymphocyte # 1.42 X10^3/ul (0.83-4.51); Lymphocyte % 19.6 % (19-41); Mean Corp Hgb Conc 30.7 g/dL (32-36); Mean Corpuscular Volume 97.8 fL (81-99); Monocyte% 9.6 % (0-10); NRBC Flagged by Analyzer 0 % (0-5); Neutrophil # 5.03 X10^3/uL (2.7-7.7); Neutrophil % 69.3 % (47-70); Platelet Count 406 K/mm3 (150-450); RBC Distribution Width CV 16.4 % (11.6-14.6); RBC Distribution Width SD 59.3 fl (35.1-43.9); Red Blood Count 4.03 M/mm3 (4.2-5.4); White Blood Count 7.3 K/mm3 (4.4-11.0)
[2021-12-06 09:56] LABS: Color, Urine Yellow (Yellow); Glucose, Dipstick Normal (Normal); Ketone-Dipstick Negative (Negative); Leukocyte Esterase-Dipstick Negative /ul (Negative); Nitrite-Dipstick Negative (Negative); Occult Blood-Urine Negative /ul (Negative); Protein-Dipstick Negative (Negative); Urine Bilirubin Dipstick Negative (Negative); Urine Clarity Clear (Clear); Urine Urobilinogen Normal (Normal)
[2021-12-06 10:14] LABS: Hemoglobin A1c 5.6 % (3.8-5.6)
[2021-12-06 10:31] LABS: AST(SGOT) 8 U/L (15-37); Alanine Aminotransfer ALT/SGPT 17 U/L (13-56); Albumin, Serum 3.6 g/dL (3.2-5.0); Alkaline Phosphatase 69 U/L (45-117); Anion Gap 8 (5-15); BUN 14 mg/dL (7-18); BUN/Creat Ratio 25.3 RATIO (10-20); Calcium,Total 9.3 mg/dL (8.5-10.1); Chloride 105 mmol/L (98-107); Cholesterol 166 mg/dL (200); Creatinine, Serum 0.55 mg/dL (0.55-1.02); EST Glomerular Filtration Rate 117 mL/min (>60); Est Glom Filt Rate - Afr Amer 141 mL/min (>60); Globulin 3.7 g/dL (2.2-4.2); Glucose 118 mg/dL (74-106); High Density Lipoprotein 49 mg/dL; Potassium 4.5 mmol/L (3.5-5.1); Protein, Total 7.3 g/dL (6.4-8.2); Sodium Level 138 mmol/L (136-145); Triglycerides 177 mg/dL; Very Low Density Lipoprotein 35 mg/dL (5-40)
== END | disposition home or self-care (01) ==
LOC: MTLAB 08:01
PROVIDERS: PCP Family Medicine; Referring Provider Family Medicine; Visit Provider Family Medicine
DX: E11.59 Type 2 diabetes mellitus with other circulatory complications (principal); E11.69 Type 2 diabetes mellitus with other specified complication
CPT/HCPCS: 36415; 80053; 80061; 81001; 83036; 85025

== ENCOUNTER → 2022-01-07 | Outpatient (CLI) | payer MEDICARE, SELFPAY ==
[2022-01-07 15:22] LABS: Absolute Lymphocyte Count 1.75 X10^3/uL (0.83-4.51); Absolute Neutrophil Count 5.4 X10^3/uL (2.0-7.7); Basophil# 0.02 X10^3/uL; Basophil% 0.3 % (0-1); Eosinophil# 0.09 X10^3/uL; Eosinophils% 1.1 % (0-5); Hematocrit 46.4 % (37-47); Hemoglobin 14.3 g/dL (12.0-15.0); Lymphocyte # 1.75 X10^3/ul (0.83-4.51); Lymphocyte % 22.1 % (19-41); Mean Corp Hgb Conc 30.8 g/dL (32-36); Mean Corpuscular Hgb 30.5 pg (27.0-32.0); Mean Corpuscular Volume 98.9 fL (81-99); Mean Platelet Vol. 9.5 fl (6.2-12.0); Monocyte# 0.64 X10^3/uL; Monocyte% 8.1 % (0-10); NRBC Flagged by Analyzer 0 % (0-5); Platelet Count 344 K/mm3 (150-450); RBC Distribution Width CV 15.6 % (11.6-14.6); RBC Distribution Width SD 57.2 fl (35.1-43.9); Red Blood Count 4.69 M/mm3 (4.2-5.4); White Blood Count 7.9 K/mm3 (4.4-11.0)
[2022-01-07 15:39] LABS: Hemoglobin A1c 5.4 % (3.8-5.6)
[2022-01-07 15:42] LABS: Microalbumin,Random Urine 9.1 mg/L (NO RANGE EST.)
[2022-01-07 20:36] LABS: ALB/GLOB Ratio 0.9 RATIO (0.9-2.4); AST(SGOT) 9 U/L (15-37); Alanine Aminotransfer ALT/SGPT 18 U/L (13-56); Albumin, Serum 3.7 g/dL (3.2-5.0); Alkaline Phosphatase 74 U/L (45-117); Anion Gap 7 (5-15); BUN 15 mg/dL (7-18); BUN/Creat Ratio 27.1 RATIO (10-20); Calcium,Total 9.5 mg/dL (8.5-10.1); Chloride 109 mmol/L (98-107); Cholesterol 175 mg/dL (200); Creatinine, Serum 0.55 mg/dL (0.55-1.02); EST Glomerular Filtration Rate 116 mL/min (>60); Est Glom Filt Rate - Afr Amer 141 mL/min (>60); Ferritin 28 ng/mL (8-252); Glucose 89 mg/dL (74-106); High Density Lipoprotein 50 mg/dL; Iron 55 ug/dL (50-170); Iron Binding Capacity,Total 396 ug/dL (250-450); Potassium 4.6 mmol/L (3.5-5.1); Protein, Total 7.7 g/dL (6.4-8.2); Sodium Level 140 mmol/L (136-145); Triglycerides 136 mg/dL; Very Low Density Lipoprotein 27 mg/dL (5-40)
== END | disposition home or self-care (01) ==
LOC: MFPLAB 11:49
PROVIDERS: PCP Family Medicine; Visit Provider Family Medicine
DX: E11.9 Type 2 diabetes mellitus without complications (principal); D50.9 Iron deficiency anemia, unspecified
CPT/HCPCS: 36415; 80053; 80061; 82043; 82570; 82728; 83036; 83540; 83550; 85025

== ENCOUNTER 2022-01-09 09:00 | Outpatient (RCR) | payer MEDICARE, SELFPAY ==
--- NOTE | 2021-12-13 08:14 | HP.PTEVAL ---
Patient's Visit Information KAELYN DRUMMOND is a 65 year old F referred to Physical Therapy by Dr. Ludwin Christianson MD with a diagnosis of subdural and arachnoid hematoma, TBI. Date of Evaluation: 12/13/21 Physical Therapist: Km Tate DPT - Visit Plan Frequency: 1x/Week Duration: 4 Weeks Plan: Patient is to take her HEP I gave her today and work on this for a few weeks. She is to follow up with physician next week. If she continues to progress, she is to slowly increase walking routine and ADLs. If she notices she is not improving like she expects she to call and we will re assess. - Subjective Pt. is here today for her initial evaluation with diagnosis of subdural and arachnoid hematoma, TBI. Injury occurred October 28. Pt. was out to dinner and fell/passed out. She woke up at [employer]. She had a bleed and a craniotomy. She is still missing part of her skull and is wearing a subsequent protective head wear. She wears when she is up and walking. She reports overall doing well, but thinks her R side might be weaker than her L. Occasional GOMES, no blurred vision, no N/T. She reports gradual improvements since being home. Pt. is pleased. 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 She has been doing laundry, all ADLS and IADLS without issues. She does get fatigued, but takes brakes. She is to follow up with physician next week. - Objective POSTURE: Pt. has good posture in stance. Pt. has normal stance, no balance aide. PALPATION: Pt. no issues with palpation of BLEs. NEURO: pt. has normal sensation, normal DTR in BLEs. Pt. is able to rise on heels and toes without issues. ROM: Pt. has normal ROM BLEs without limitations. Normal HS and hip flexor length. MMT: Pt. has equal strength in BLEs. She does report she feels increased weakness in RLE as the day progresses. 5/5 BLE strength with testing today. - Balance/Special Test Scores Functional Gait Assessment Score: 26 % Disability: 13.3400 Lower Extremity Functional Score: 55 TUG Test Time Seconds: 9.1 30 Second Chair Rise Test Seconds: 15 - Goals Goal 1:: STG: Pt. to be I with HEP for balance and BLE strengthening. Goal Time Frame: 2-4 Weeks Goal 2:: LTG: Pt. to complete 6 MWT with distance of greater than 1200 feet. Goal Time Frame: 4-6 Weeks Goal 3:: LTG: pt. to complete TUG with time less than 8 seconds. - Rehabilitation Potential Physical Therapy Diagnosis: Pt. has signs and symptoms consistent with subdural and arachnoid hematoma, TBI. Pt. is overall doing well. She presents with good and improving strength, good TUG score and good FGI score. I am giving her some exercises to work on at home to supplement her daily activities to further progress. Rehabilitation Potential: Excellent - Anticipated Interventions Patient/Client Instruction: Educate patient on: Condition, Plan of Care, Risk Factors, Benefits of Fitness Program For the Purpose of:: To facilitate caregiver knowledge, To improve self management, To prevent re-injury, To improve ability to perform tasks related to life management, To improve tolerance to ADL's Therapeutic Exercise to Include: Strength training, Power training, Endurance training, Body mechanics, Postural training, Gait and locomotor training For the Purpose of:: To improve nutrient delivery to tissue, To increase oxygenation perfusion, To improve muscle performance and motor function, To improve ability to perform ADL's, To improve gait and locomotor functions, To improve health of tissue Thank you for the opportunity to evaluate your patient. For Medicare and Medicare HMO plans, please review the plan of care and approve it. It will need to be FAXED BACK to us at [phone] for Medicare purposes. For Medicare only, by signing this I certify the plan of care. Please let me know if there are questions or concerns regarding this plan of care. Physician Signature: Date:
--- NOTE | 2021-12-13 12:14 | HP.SP.AD_ITS ---
History - History Date of Eval: 12/13/21 Medical Diagnosis (from RX): subdural and arachnoid hematoma, TBI Date of Onset of Diagnosis: October 28, 2021 Previous speech therapy: No Other Relevant Medical History/Diagnoses/Surgery: KAELYN DRUMMOND is a 65 year old female who attended [facility] for a cognitive-linguistic evaluation s/p fall on October 28 resulting in subdural and arachnoid hematoma, TBI. She served as historian for evaluation - attending session alone. Pt was out dancing with friends when she fell and hit the L side of her skull. Pt reports bleeding from her ears and was taken by ambulance to the emergency room. At the hospital, Pt participated in a L hemisphere craniotomy. Pt was induced in a coma for 2 days at [facility] to help reduce swelling. Pt wearing helmet at [facility] today. Pt to go back to [facility] on December 18 to determine if they can put skull cap back on. Pt with excellent recall of events. Pt endorses having word finding difficulty after accident however it has improved and only happens now when she is tired. Pt manages finances and medications at home independently. 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 Linguistic skills were evaluated using patient/family interview, skilled observation and informal evaluation through tasks completed by the patient. - Numerical Skills Balancing Checkbook [place]: Pt reporting that she utilizes a checkbook, checks, and a check register at home as well as depositing checks on her phone. Pt manages finances independently and reports that the first check she wrote after being d/c from the hospital she forgot to sign her name. Pt completed check writing task with demonstrating planning, organizing, and problem solving abilities to fill out the date, amount, payee, written form of amount, ebony line, and signature with 100% acc I. Pt initiated check register organization task with increased difficulty organizing the transactions, adding/subtracting, and including appropriate date, name of transaction, and placing in the correct credit/debit column. Plan to target this functional task in future sessions. - Cognitive Linguistic Supervision/Safena Awareness of deficits: Mild Being left home alone: Mild Managing finances: Mild, Moderate - Executive Function Comments Comments: Unable to formally assess medication management skills d/t time constraints of evaluation time, however suspecting Pt will demonstrate mild- moderate deficits based on performance in checkbook task. Pt manages meds independently at home and reports that her medications are different than they used to be prior to accident. CLQT - CLQT CLQT Administered: Yes CLQT: Cognitive Linguistic Quick Test (CLQT) is a criterion - referenced assessment designed for adults between the ages of 18 and 89 with known or suspected neurological dysfuntions. The CLQT is to assess strength and weaknesses in five cognitive domains. Severity ratings are within normal limits, mild, moderate, severe deficits. The subtests are as follows: Date: 12/13/21 - Attention Attention: Mild - Memory Memory: Mild - Executive Functions Executive Functions: WNL - Language Language: WNL - Visuospatial Skills Visuospatial Skills: Mild - Composite Severity Rating Composite Severity Rating: Mild - Clock Drawing Severity Rating Clock Drawing Severity Rating: WNL Plan - Plan Plan: Will recommend Pt for weekly outpatient speech therapy to address mild cognitive-linguistic impairment characterized by deficits in short-term memory, word retrieval, attention, and math/money problem solving/reasoning concepts. Pt would benefit from training in compensatory strategies for recall and word retrieval, as well as cognitive training to improve cognitive functioning. Without skilled ST services, the Pt is at risk for decreased independence compl eting daily living tasks. - Recommendations Treatment Warranted: Yes - Frequency Frequency: 1x/Week Duration: 6 Weeks - Prognosis Prognosis: Excellent - Goals that are Established: Determination:: Goals will be added/modified as deemed necessary and appropriate. Therapy will be discontinued when results of re-evaluation indicate therapy is no longer needed or lack of progress has been documented. - Goal #1-5 Goal #1: Kaelyn will demonstrate use of word finding strategies to complete complex convergent and divergent naming tasks with 90% acc independently across 3 measured opportunities to improve word retrieval. Goal #2: Akelyn will complete basic to mod complex planning, organizing, and sequencing tasks with 90% acc independently across 3 measured opportunities. Goal #3: Kaelyn will complete basic to mod complex immediate, short-term, and working memory tasks with 90% acc independently across 3 measured opportunities. Goal #4: Kaelyn will complete basic to mod complex functional math, money, and time tasks with 90% acc independently across 3 measured opportunities. Education - Patient has Indicated that the Following Identified Educational Needs: None The Patient has indicated that they have no educational or learning abilities that may effect their care.: Yes - Patient Instruction Patient Education: Diagnosis, Treatment Plan, Goals Other Education: Direct education provided re: location of injury and subsequent aphasia. Person Taught: Patient Teaching Method: Discussion Response to teaching: Return demonstration, Verbalize understanding
--- NOTE | 2021-12-24 10:23 | HP.OTEVAL ---
Patient's Visit Information KAELYN DRUMMOND is a 65 year old F, referred to Occupational Therapy by Dr. Ludwin Christianson MD, with a diagnosis of TBI, Subdural hemiplegia. Date of Evaluation: 12/20/21 Occupational Therapist: Ivonne Hopson, SALBADORR/Zbigniew, CHT - Subjective Pt. is a 65 y/o female who had a TBI, subdural hematoma on 10-28-21. Pt. reported she was dancing, fell and then remembered waking up at [facility] 2 days later, went to rehab for 1 day and then was dc'd to home. Pt. reported that her son stayed with her for 1 week as a safety precaution. Pt. reported she had PT x2, & currently ST twice a week. Craniotomy was performed to reduce swelling. Pt. reported she doesn't notice any deficits between right and left side. Skull to go back in on 01-15-22. Pt. currently wears a helmet for protection when she is up walking or standing. - ADLs Comments: no yard work Comments: pt. reported that she reduces bending and straightening quickly as it causes dizziness. 1 story [facility]. goes to [employer] for laundry. Lives independently, with cat. cat litter box on raised surface. R hand dominant. 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 - Pain Head 0 Pain Intensity Range: 6 - Objective Pt. has verbalized good safety awareness with wearing helmet. Pt. verbalized that she knows that she needs to slow down - ROM Shoulder: B WFL Elbow: B WFL Forearm: B WFL Wrist: L 45/75* R 50/64 Opposition: Kapandji opposition scale right 10 left 10 WNL ROM Comments: clenched fist, not composite fist on R hand. 10 Kapandji scale B hands - Strength Shoulder: B UE Fair + strength Elbow: B UE Fair + strength Client Support Analyst: L 35# R 35# Lateral Pinch: L 10#, R 8# Tripod Pinch: L 6#, R 6# Tip-to-Tip Pinch: L 4#, R 7# Strength Comments: R handed - Sensation Thumb: L 3.22 R 3.84 Index: L 3.84 R 3.84 Middle: L 3.22 R 3.22 Ring: L 3.22 R 3.84 Little: L 3.22 R 3.22 Sensation Comments: Decreased sensation with R thumb, R IF, R RF, L IF - Nine Hole Peg Right: 23.85 Left: 22.21 - Stroke Specific Quality of Life Total SS-QOL Score: 207 - Goals Goal:: Pt. to improve UB strength to good for independence with work functions by dc. Pt. to improve tripod pinch strength to 10# on B hands to improve FM tasks by dc. Goal:: Pt. to develop a new leisure exploration/participation to fill time off from work to improve relaxation and health by dc. - Rehabilitation General Assessment: Pt. has been referred by Dr. Cleary for OT evaluation secondary to having a TBI, subdural hemiplegia. Pt. has craniotomy in October 2021 (10-28-21 or 10-29-21), 7 weeks ago. Pt. currently wears a helmet for safety. She is diabetic. Pt. educated on what to expect from OT services. Pt. has weakness in R hand and BUE's, decreased activity/work participation. Pt. reports wanting to return to work 3 days a week. She would benefit from skilled OT services to increase UB strength for work and to increase hobby interests 1x a week for 4 weeks. Pt. demo'd understanding and agreeable to POC. Therapy session was directly supervised and doc. reviewed and approved by Ivonne Hopson OTR/Zbigniew,CHT. Rehabilitation Potential: Good - Anticipated Interventions Strengthening, Joint Protection/Energy Conservation, Ergonomic Education, Home Program, Other Other Interventions: leisure exploration/participation - Visit Plan Frequency: 1x/Week Duration: 4 Weeks TEXT: Thank you for the opportunity to evaluate your patient. For Medicare and Medicare HMO plans, please review the plan of care and approve it. It will need to be FAXED BACK to us at [phone] for Medicare purposes. Please let me know if there are questions or concerns regarding this plan of care. Physician Signature: Date:
--- NOTE | 2022-01-04 10:33 | HP.OTDCSUM ---
It has been my pleasure to treat KAELYN DRUMMOND under orders from Dr. Ludwin Christianson MD, for the diagnosis of TBI, Subdural hemiplegia for a total of 3 visit(s). Please see the following information for a summary of their discharge status. % Improvement: 80 Objective/Function: recreation therapy aide R 45#, L 45# improved from 35#. tripod R 6# L 8#, improved from 6# has arthritic deviation difficulty with assessing correctly. She has participated in strengthening exercises and leisure exploration options. She is independent with ADL's and IADL's. Patient Goals: Regain Strength, Improve Fine Motor Skills, Resume Hobbies Other: Pt. would like To go back to work. Goal:: Pt. to improve UB strength to good for independence with work functions by dc. Pt. to improve tripod pinch strength to 10# on B hands to improve FM tasks by dc. Goal:: Pt. to develop a new leisure exploration/participation to fill time off from work to improve relaxation and health by dc. Plan: DC this date Discharge Comments: Pt. reported she is 80% improved from evaluation. Quick dash score 14 improved from 207. Pt. attended 4 OT sessions. 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 pt is d/c at this time pt agree to POC. If there are questions or concerns regarding this patient's occupational therapy, please fell free to call me at [phone]. Thank you for the referral of this patient. Sincerely, Ivonne Hopson, OTR/L, CHT
--- NOTE | 2022-04-12 08:31 | HP.SP.DC ---
ST Discharge Summary - Discharged: Discharge: KAELYN DRUMMOND is a 66 year old female who was seen for initial speech/language/cognitive evaluation at [facility] on 12/13/21 s/p fall on October 28 resulting in subdural and arachnoid hematoma, TBI. Pt attended 3 additional consecutive sessions following initial evaluation to target mild cognitive deficits including attention, word retrieval, divergent naming, problem solving/reasoning, memory, executive functioning, and safety awareness. Pt's last appt was in December 2021 where she was to attend an appt in [place] re: placing her skull flap back on - Pt was then to return to therapy after. Pt did not return. Since then, per chart review, Pt is currently in inpatient therapy s/p subdural hematoma diagnosed 03/28/22. Pt discharged from speech therapy caseload on this date, 04/12/22 due to need for re-evaluation following d/c from inpatient rehabilitation. Thank you for allowing me to participate in the care of your Pt. Will reevaluate at Pt?s request following script from physician.
== END 2022-01-09 19:00 | disposition home or self-care (01) ==
LOC: SP 09:00
PROVIDERS: PCP Family Medicine; Referring Provider Family Medicine; Visit Provider Family Medicine
DX: S06.5X0D Traumatic subdural hemorrhage without loss of consciousness, subsequent encounter (principal); E11.9 Type 2 diabetes mellitus without complications; I10 Essential (primary) hypertension; R47.01 Aphasia; X58.XXXD Exposure to other specified factors, subsequent encounter
CPT/HCPCS: 92507; 97110; 97129; 97130; 97161; 97166; 97530

== ENCOUNTER → 2022-03-06 | Outpatient (CLI) | payer MEDICARE, SELFPAY ==
--- NOTE | 2022-03-06 06:40 | BI_ITS ---
MAMMOGRAPHY - BILATERAL SCREENING REASON FOR EXAM: Female, 66 years old. Routine annual screening examination. PERTINENT HISTORY: Non-contributory. TECHNIQUE: Digital bilateral breast irene (3D mammographic acquisition) in the CC and MLO projections. 2-D mediolateral oblique (MLO) and craniocaudad (CC) views of both breasts were obtained. CAD: Full Field Digital Mammography with Computer Added Detection was performed. COMPARISON: Comparison is made with prior study dated 02/13/2021. FINDINGS: Breast Composition: There are scattered areas of fibroglandular density. There are no dominant masses or suspicious calcifications. Stable small benign appearing bilateral axillary nodes. No other significant abnormalities are identified. There has been no significant change since the prior study. BI/SCRN MAMM (CAD)W/IRENE BILAT IMPRESSION: Stable bilateral screening mammogram. Yearly follow-up mammogram recommended. (A) ASSESSMENT CATEGORY: BIRADS Category 2: Benign. A letter regarding these results will be sent to the patient by the facility within 30 days. Approximately 10% of breast cancers are not detected by mammography. A normal mammogram should not delay biopsy of a clinically suspicious abnormality. [id number] Electronically Signed: Claude Nunez MD at 9:37 EDT ,
--- NOTE | 2022-03-06 06:40 | CT_ITS ---
STUDY: CT CHEST WITHOUT CONTRAST REASON FOR EXAM: Female, 66 years old. LUNG NODULE RADIATION DOSAGE (If Supplied By Facility): CTDIvol = ( 15.48 ) mGy, DLP = ( 487.00 ) mGycm TECHNIQUE: Transaxial imaging was performed without the administration of intravenous contrast material. Multiplanar coronal and sagittal images were reformatted. Individualized dose optimization techniques were used for this CT. COMPARISON: Comparison is made with prior study dated 09/05/2021. FINDINGS: CHEST Stable 1.8 cm x 1.5 cm slightly spiculated nodule in the medial aspect of the left upper lobe abutting the mediastinum. There is no demonstrated pleural abnormality. There are calcifications of the coronary arteries. Normal mediastinum. Normal hilar regions. Normal unenhanced pulmonary arteries. There is atherosclerotic calcification of the aortic arch with tortuosity and elongation of the aortic arch and descending thoracic aorta. There are degenerative changes of the thoracic spine. There is no demonstrated abnormality of the visualized upper abdomen. CT/Chest without Contrast IMPRESSION: Stable 1.8 cm x 1.5 cm slightly spiculated nodule in the medial aspect of the left upper lobe abutting the mediastinum. Electronically Signed: Claude Nunez MD at 11:17 EDT ,
== END | disposition home or self-care (01) ==
PROVIDERS: PCP Family Medicine; Referring Provider Internal Medicine Pulmonary Disease; Visit Provider Internal Medicine Hematology & Oncology
DX: Z12.31 Encounter for screening mammogram for malignant neoplasm of breast (principal); R91.1 Solitary pulmonary nodule
CPT/HCPCS: 71250; 77063; 77067

== ENCOUNTER 2022-03-28 10:31 | Emergency (ER) | payer MEDICARE, SELFPAY ==
[2022-03-28] VITALS (13 sets, daily range): BP systolic 122–212; BP diastolic 47–95; PULSE 60–91; RESP 12–28; TEMP 35.7–36.1; O2SAT 88–99; BMI 31.7
--- NOTE | 2022-03-28 10:33 | CT_ITS ---
STUDY: CT BRAIN WITHOUT CONTRAST REASON FOR EXAM: Female, 66 years old. Abrupt headache with nausea and vomiting. History of prior left craniotomy. RADIATION DOSAGE (If Supplied By Facility): CTDIvol = ( 44.99 ) mGy, DLP = ( 812.98 ) mGycm TECHNIQUE: Transaxial CT imaging of the brain was performed without administration of intravenous contrast material. Individualized dose optimization techniques were used for this CT. COMPARISON: Comparison is made with prior examination 10/27/2021. FINDINGS: Normal soft tissue structures. Evidence of prior left craniotomy. There is evidence of small to moderate size acute right subdural hematoma overlying the right frontoparietal occipital lobes. There is evidence of shift of the midline from right to left measuring 0.9 cm. Small amount of the subarachnoid hemorrhage in the right sylvian fissure. Normal basal ganglia and thalami. Normal brainstem. Normal cerebellum. Normal visualized paranasal sinuses. CT/Brain/Head without Contrast IMPRESSION: Small to moderate size acute right subdural hematoma as described with shift of the midline from right to left of 0.9 cm. Small amount of blood is seen in the right sylvian fissure. N.B. : The above Results were Read Back by Claude Nunez MD to Héctor Conti MD, and understanding confirmed on 03/28/2022 11:05:35 (ET). Electronically Signed: Claude Nunez MD at 11:06 EDT ,
--- NOTE | 2022-03-28 10:36 | EDS_ITS ---
HPI History of Present Illness Chief Complaint: Headache Informant: patient and PCP Onset/Context/Timing Onset: Days (Onset 2 to 3 days ago constant since yesterday) Context: Sudden Timing: Continuous (Since yesterday. Intermittent prior) Quality -Headache: Positive for Dull and Throbbing; Negative for Similar Prior Headaches Location: Frontal bilaterally Current Severity: Severe Maximum Severity: Severe Worsened by: Nothing Relieved by: Nothing Associated Symptoms/Injury Associated Symptoms: Positive for Nausea and Vomiting; Negative for Fever, Sore Throat, Sinus Pressure, Numbness, Tingling, Preceding Aura, Visual Changes, Bl urred Vision, Photophobia or Visual Loss Injury - GOMES: Negative for Direct Trauma (Remote history of trauma with subdural October 2021) Narrative Narrative: Patient is a 66-year-old woman who presents from primary care physician's office by ambulance because of severe headache with nausea and vomiting. She states s he does not feel well. Headache is bilateral and frontal. There are no exacerbating, precipitating or alleviating factors. She has been vomiting since this morning. She does endorse thirst and dry mouth. She denies double vision, blurred vision loss of vision. She reports mild ringing in her ears which she is never had before. She denies URI symptoms. She denies cardiac respiratory symptoms. She denies diarrhea. She denies urologic symptoms. She is no longer on anticoagulant. The anticoagulants discharged after subdural hematoma. She was on anticoagulant because of PAD with stent placement left lower extremity. Patient denies problems with balance or coordination. She denies paresthesia, anesthesia or motor weakness. There is no family history of subarachnoid hemorrhage or brain aneurysm. Prior similar symptoms: No Recent Illness/Hospitalization: No [facility] Medical History Adenomatous polyps Anemia Anxiety Atherosclerosis of coronary artery of [place] heart without angina pectoris Back pain Black tarry stools Bladder disease Cancer Cardiology follow-up encounter Claudication Dietary restriction Diverticulosis Essential (primary) hypertension Fatigue Gastritis History of echocardiogram History of edema History of stress test Hoarseness Hyperlipidemia Iron deficiency anemia Iron deficiency anemia due to chronic blood loss Left upper lobe pulmonary nodule Leg cramps Lung mass Marijuana use Nicotine dependence Obesity Peripheral vascular occlusive disease Rectal bleeding Rheumatoid arthritis Smoker Subdural hematoma Subdural hemorrhage Type 2 diabetes mellitus Wears dentures Wears glasses Home Medications atorvastatin 40 mg tablet 40 mg PO DAILY #90 tabs 03/23/20 [Rx Last Taken Unknown] cilostazol 100 mg tablet 100 mg PO BID 06/20/20 [History Last Taken Unknown] metformin 1,000 mg tablet 1,000 mg PO BID 09/29/20 [History Last Taken Unknown] calcium carbonate 600 mg-vitamin D3 5 mcg (200 unit) capsule 1 cap PO DAILY 10/01/21 [History Last Taken Unknown] docusate sodium 100 mg capsule (Colace) 100 mg PO .COMPLEX 10/01/21 [History Last Taken Unknown] empagliflozin 25 mg tablet 25 mg PO DAILY 10/01/21 [History Last Taken Unknown] oxybutynin chloride 15 mg tablet,extended release 24 hr 15 mg PO DAILY 10/01/21 [History Last Taken Unknown] aspirin 81 mg tablet,delayed release 81 mg PO DAILY 03/04/22 [History Last Taken Unknown] Allergy/AdvReac Type Severity Reaction Status Date / Time acetaminophen [From Percocet] Allergy Intermediate Itching Verified 03/28/22 10:33 oxycodone [From Percocet] Allergy Intermediate Itching Verified 03/28/22 10:33 Family History Sister Diabetes Breast cancer Brother Cancer throat Surgical History History of angioplasty of peripheral vessel History of cholecystectomy History of coronary artery stent placement (10/10/15) History of esophagogastroduodenoscopy (EGD) History of hysterectomy History of left heart catheterization (10/09/15) Hx of colonoscopy Hx of heart artery stent S/P craniotomy Social History (Updated 03/28/22 @ 10:[address] Héctor Conti MD) household members: none Smoking Status: Unknown if ever smoked Tobacco: How many years used: 40 second hand exposure: Yes details: very rarely substance use type: does not use mary beth/denominational: Sabianist seatbelt use: always do you feel safe at home: Yes ROS ROS ED Constitutional Constitutional ED: Denies chills, fever(s), subjective, sweats or weight loss Eyes Eyes: Reports other Details: She denies photophobia. ; Denies blurry vision, change in vision or diplopia ENT ENT ED: Reports other Details: Ringing in ears ; Denies ear pain, rhinorrhea or sore throat Cardiovascular Cardiovascular: Denies chest pain, orthopnea, palpitations, paroxysmal nocturnal dyspnea or racing heartbeat Respiratory/Chest Respiratory/Chest: Denies cough, dyspnea, dyspnea on exertion, orthopnea or paroxysmal nocturnal dyspnea Gastrointestinal Gastrointestinal: Reports nausea and vomiting; Denies abdominal pain, constipation, diarrhea or melena Genitourinary Genitourinary ED: Denies dysuria, hematuria or urinary frequency Musculoskeletal Musculoskeletal: Denies arthralgias, back pain, myalgias or neck pain Integumentary Denies abscess, Abrasions or rash Neurologic Neurologic: Reports headache(s) and other Details: Documented in HPI narrative ; Denies paresthesias or weakness Psychiatric Psychiatric: Denies anxiety or depression Endocrine Endocrinology: Denies polydipsia, polyphagia or polyuria Hematologic/Lymphatic Hematologic/Lymphatic: Denies easy bleeding or easy bruising EXAM Physical Exam Const Vital Signs: 03/28/22 10:32 03/28/22 10:36 03/28/22 10:40 Temperature 96.9 F L Temperature Source Temporal Pulse Rate 91 Respiratory Rate 18 Blood Pressure 212/95 H Blood Pressure Mean 134 Pulse Ox 98 Oxygen Delivery Method Room Air Room Air Room Air Oxygen Flow Rate (L/min) 03/28/22 10:33 03/28/22 10:48 03/28/22 10:58 Temperature Temperature Source Pulse Rate 84 70 68 Respiratory Rate 18 12 14 Blood Pressure 212/95 H 193/77 H 149/78 H Blood Pressure Mean 134 115 101 Pulse Ox 97 95 95 Oxygen Delivery Method Room Air Room Air Room Air Oxygen Flow Rate (L/min) 03/28/22 10:48 03/28/22 11:03 03/28/22 11:13 Temperature Temperature Source Pulse Rate 80 81 68 Respiratory Rate 18 16 14 Blood Pressure 193/77 H 149/78 H 130/72 H Blood Pressure Mean 115 101 91 Pulse Ox 96 96 92 Oxygen Delivery Method Room Air Room Air Room Air Oxygen Flow Rate (L/min) 03/28/22 11:27 03/28/22 11:27 03/28/22 11:15 Temperature 96.3 F L Temperature Source Temporal Pulse Rate 67 Respiratory Rate 28 H Blood Pressure 130/58 H Blood Pressure Mean 82 Pulse Ox 88 93 95 Oxygen Delivery Method Room Air Nasal Cannula Nasal Cannula Oxygen Flow Rate (L/min) 2 2 03/28/22 11:30 Temperature Temperature Source Pulse Rate 60 Respiratory Rate 24 H Blood Pressure 131/56 H Blood Pressure Mean 81 Pulse Ox 97 Oxygen Delivery Method Nasal Cannula Oxygen Flow Rate (L/min) 2 Positive well nourished, well developed and obese Constitutional Narrative: Patient does not look well. She does not appear toxic. General Appearance ED: well developed; Negative for cyanotic, diaphoretic, NAD or pallor Nutritional Appearance: obese HEENT Reports dry mucous membranes; Denies normocephalic or TM's clear HEENT Narrative: Nares patent. No frontal, ethmoid or maxillary sinus tenderness. Uvula is midline. There is no erythema or exudate. atraumatic; Negative for tenderness, temporal artery tenderness or vesicular rash Tympanic Membrane ED: Negative for TM's clear Mouth ED: Yes dry mucous membranes Mouth: dry mucous membranes Eyes PERRL and EOMs intact bilaterally Eyes Narrative: There is no APD. Unable to perform funduscopic examination due to miosis. There is no nystagmus. Neck no lymphadenopathy, supple, no meningeal signs and no JVD General: Negative for tenderness Resp normal respiratory effort and clear to auscultation bilaterally Cardio regular rate, regular rhythm, S1 normal heart sound and S2 normal heart sound GI non-tender and non-distended Auscultation: hypoactive bowel sounds Palpation: soft Back/Spine no CVA tenderness Cervical Spine: Negative for cervical spine tenderness Thoracic Spine / Upper Back: Negative for thoracic spinal tenderness Neuro oriented x3, CN's II-XII intact bilaterally and no sensory deficits noted Neuro Narrative: DTR symmetric. There is no Babinski sign or clonus on right. Babinski on left noted. [place] Coma Scale: document GCS findings Spontaneous Obeys Commands Oriented 15 Sensorium / Orientation: awake, alert, oriented to person, oriented to place and oriented to time Coordination / Balance: [id number] test normal Speech: speech normal Motor Exam: strength 5/5 throughout Psych mental status grossly normal Skin General Skin Exam: Negative for jaundice or pallor Rashes: no rashes MDM MDM MDM Narrative Medical decision making narrative: Frontal diagnosis includes sinus infection, subarachnoid hemorrhage, vasculitis versus hypertension. CT of the head was obtained to evaluate for subarachnoid hemorrhage. ESR because of concern for vasculitis. CBC to assess white count and H&H and electrolytes were obtained since patient clinically is dehydrated and has been reporting vomiting. She did receive a 500 cc bolus. Furthermore she received 4 mg of Zofran for her nausea and vomiting. Patient is now complained of photophobia. She also complains of worsening headache. Her nausea and vomiting resolved with Zofran. Blood pressure responding to the labetalol she was given. Will order 0.5 mg of Dilaudid for headache. Will discuss use of mannitol in this patient after speaking with neurosurgeon, Dr. Chele Urbano. Lab Data Attestation: I reviewed the patient's lab results. Lab results narrative: White count is slightly elevated. Platelet count is normal at 332. Basic metabolic panel is essentially unremarkable. Blood sugar is slightly elevated at 143. Patient does have history of type 2 diabetes. BUN and creatinine are normal. PT/INR and PTT are normal. Labs: Laboratory Results - last 24 hr 03/28/22 03/28/22 03/28/22 10:38 10:38 10:38 WBC 12.0 H RBC 3.94 L Hgb 11.9 L Hct 38.6 MCV 98.0 MCH 30.2 MCHC 30.8 L RDW Std Deviation 65.8 H RDW Coeff of Martha 18.6 H Plt Count 332 MPV 8.7 Immature Gran % (Auto) 1.200 H Neut % (Auto) 69.4 Lymph % (Auto) 19.8 Independence % (Auto) 8.5 Eos % (Auto) 0.8 Baso % (Auto) 0.3 Absolute Neuts (auto) 8.3 H Absolute Lymphs (auto) 2.37 Nucleated RBC % 0 Anisocytosis 1+ ESR 21 PT INR APTT Sodium 142 Potassium 4.0 Chloride 112 H Carbon Dioxide 23.0 Anion Gap 7 BUN 12 Creatinine 0.56 Estim Creat Clear Calc 43.18 Est GFR (MDRD) Af Amer 138 Est GFR (MDRD) Non-Af 114 BUN/Creatinine Ratio 21.3 H Glucose 143 H Calcium 9.3 03/28/22 10:38 WBC RBC Hgb Hct MCV MCH MCHC RDW Std Deviation RDW Coeff of Martha Plt Count MPV Immature Gran % (Auto) Neut % (Auto) Lymph % (Auto) Independence % (Auto) Eos % (Auto) Baso % (Auto) Absolute Neuts (auto) Absolute Lymphs (auto) Nucleated RBC % Anisocytosis ESR PT 12.7 INR 1.0 APTT 35.1 Sodium Potassium Chloride Carbon Dioxide Anion Gap BUN Creatinine Estim Creat Clear Calc Est GFR (MDRD) Af Amer Est GFR (MDRD) Non-Af BUN/Creatinine Ratio Glucose Calcium Radiography Diagnostic Testing: Clinical Impression(s) from Imaging Studies Brain CT 03/28/22 10:33 IMPRESSION: Small to moderate size acute right subdural hematoma as described with shift of the midline from right to left of 0.9 cm. Small amount of blood is seen in the right sylvian fissure. N.B. : The above Results were Read Back by Claude Nunez MD to Héctor Conti MD, and understanding confirmed on 03/28/2022 11:05:35 (ET). Electronically Signed: Claude Nunez MD at 11:06 EDT , ADDENDUM: 03/28/22 1113 IMPRESSION: Small to moderate size acute right subdural hematoma as described with shift of the midline from right to left of 0.9 cm. Small amount of blood is seen in the right sylvian fissure. N.B. : The above Results were Read Back by Claude Nunez MD to Héctor Conti MD, and understanding confirmed on 03/28/2022 11:05:35 (ET). Electronically Signed: Claude Nunez MD at 11:06 EDT , EKG Initial EKG: Attestation: I personally reviewed and interpreted this EKG as follows: Interpretation: Sinus Rhythm (Ventricular rate is 74. ID interval is 156 ms. QS duration 88 ms. QT duration 426 ms. Horner is normal. Voltage is low. There is no acute ischemic changes noted.) Treatment and Re-Evaluation Narrative: Patient's films were reviewed. Patient does have a subdural hematoma on the right. 6 mm at greatest width. There is approximately 7 mm of midline shift. Patient is actively bleeding. Goal is blood pressure control. [facility] transfer line was contacted. Plan is transfer to [facility] where she had her prior surgery. Critical Care Time Critical Care Time: Yes Critical care time (excluding procedures): 30-74 minutes (33), Including time spent: (History, physical, documentation, review of prior records and medicatio ns, independent review of CAT scan.), Discussing w/Patient &/or Family/Dining Room Attendant, Discussing w/Consultants and Arranging Admission or Transfer Discharge Plan Triage Chief Complaint: Headache ED Provider: Héctor Conti Dx/Rx/DC Orders Clinical Impression: Acute subdural hematoma, Peripheral vascular occlusive disease, Atherosclerosis of coronary artery of [place] heart without angina pectoris, Hypertension, Subarachnoid hemorrhage Prescriptions: No Action cilostazol 100 mg tablet 100 mg PO BID metformin 1,000 mg tablet 1,000 mg PO BID oxybutynin chloride 15 mg tablet extended release 24hr 15 mg PO DAILY Label Comments: TAKE 1 TABLET BY MOUTH DAILY Jardiance 25 mg tablet 25 mg PO DAILY docusate sodium [Colace] 100 mg capsule 100 mg PO .COMPLEX Rx Instructions: 100 mg PO 3 times per week; calcium carbonate-vitamin D3 600 mg-5 mcg (200 unit) capsule 1 cap PO DAILY aspirin 81 mg tablet,delayed release (DR/EC) 81 mg PO DAILY atorvastatin 40 mg tablet 40 mg PO DAILY Qty: 90 4RF Primary Care Provider: Ludwin Christianson Referrals: Ludwin Christianson MD [Primary Care Provider] - Disposition Disposition: Acute Care Hospital Discharge Location: [facility]
[2022-03-28] MEDS: Ondansetron 4 MG/2 ML Vial IV ×2 (10:40→12:14)
[2022-03-28 10:45] LABS: Absolute Lymphocyte Count 2.37 X10^3/uL (0.83-4.51); Absolute Neutrophil Count 8.3 X10^3/uL (2.0-7.7); Basophil# 0.04 X10^3/uL; Basophil% 0.3 % (0-1); Eosinophils% 0.8 % (0-5); Hematocrit 38.6 % (37-47); Hemoglobin 11.9 g/dL (12.0-15.0); Lymphocyte # 2.37 X10^3/ul (0.83-4.51); Lymphocyte % 19.8 % (19-41); Mean Corp Hgb Conc 30.8 g/dL (32-36); Mean Corpuscular Hgb 30.2 pg (27.0-32.0); Mean Platelet Vol. 8.7 fl (6.2-12.0); Monocyte# 1.02 X10^3/uL; Monocyte% 8.5 % (0-10); NRBC Flagged by Analyzer 0 % (0-5); Neutrophil # 8.31 X10^3/uL (2.7-7.7); Neutrophil % 69.4 % (47-70); POSITIVE MORPHOLOGY YES; Platelet Count 332 K/mm3 (150-450); RBC Distribution Width CV 18.6 % (11.6-14.6); RBC Distribution Width SD 65.8 fl (35.1-43.9); Red Blood Count 3.94 M/mm3 (4.2-5.4)
[2022-03-28 10:46] LABS: Differential Indicated SCAN CRITERIA MET
[2022-03-28] MEDS: Labetalol (Prefilled) 20 MG/4 ML IV ×2 (10:50→11:07)
--- NOTE | 2022-03-28 10:52 | NURSING ---
CALLED [facility], TALKED TO PASTOR
--- NOTE | 2022-03-28 10:56 | EKG12_ITS ---
Test Reason : Headache Blood Pressure : / mmHG Vent. Rate : 074 BPM Atrial Rate : 074 BPM P-R Int : 156 ms QRS Dur : 088 ms QT Int : 426 ms P-R-T Axes : 055 059 050 degrees QTc Int : 472 ms Normal sinus rhythm with sinus arrhythmia Low voltage QRS Borderline ECG Confirmed by KARINA PALOMO, KASIE ([id number]), school photograph editor KAYLEIGH MARIA ([id number]) on 03/29/2022 1:42:24 PM Referred By: Gallito Confirmed By:KASIE COLLINS MD
[2022-03-28 10:57] LABS: Anion Gap 7 (5-15); BUN 12 mg/dL (7-18); BUN/Creat Ratio 21.3 RATIO (10-20); Calcium,Total 9.3 mg/dL (8.5-10.1); Chloride 112 mmol/L (98-107); Creatinine, Serum 0.56 mg/dL (0.55-1.02); EST Glomerular Filtration Rate 114 mL/min (>60); Est Glom Filt Rate - Afr Amer 138 mL/min (>60); Estimated Creatinine Clearance 43.18 ml/min; Glucose 143 mg/dL (74-106); Sodium Level 142 mmol/L (136-145)
[2022-03-28 11:05] LABS: Erythrocyte Sedimentation Rate 21 mm/hr (0-30)
[2022-03-28 11:06] LABS: Prothrombin Time (Protime)PT. 12.7 SECONDS (11.7-14.9)
--- NOTE | 2022-03-28 11:06 | CT_ITS ---
STUDY: CTA OF THE BRAIN REASON FOR EXAM: Female, 66 years old. Subarachnoid hemorrhage RADIATION DOSAGE (If Supplied By Facility): CTDIvol = ( 15.73 ) mGy, DLP = ( 398.44 ) mGycm TECHNIQUE: CT angiography was performed with a multi-detector CT scanner. Data acquisition was obtained from the skull base through the vertex following intravenous administration of IV 100mL Isovue-370. MIP images were reconstructed from the axial data set. Post-processing of the angiographic images was performed, with multiplanar reformation and 3D reconstruction. Individualized dose optimization techniques were used for this CT. COMPARISON: None. FINDINGS: Prior left frontoparietal craniotomy. Normal bilateral petrous carotid arteries. Normal right cavernous carotid artery with a normal supraclinoid bifurcation. Normal left cavernous carotid artery with a normal supraclinoid bifurcation. Normal right A1 segments of the anterior cerebral artery. Normal left A1 segments of the anterior cerebral artery. Normal intact anterior communicating artery (ACOM). Normal bilateral A2 segments of the anterior cerebral arteries. Normal right M1 and M2 segments of the middle cerebral arteries, with a normal M1 bifurcation. Normal left M1 and M2 segments of the middle cerebral arteries, with a normal M1 bifurcation. Normal right posterior communicating artery (PCOM). Normal left posterior communicating artery (PCOM). Normal bilateral vertebral arteries. Normal basilar artery with a normal basilar bifurcation. The visualized bilateral superior cerebellar (SCA) arteries are normal. Normal bilateral P1, P2 and visualized P3 segments of the posterior cerebral arteries. There is no demonstrated aneurysm of the [place]. Patient is known to have an acute right subdural hematoma there is shift of the midline from right to left. CT/CTA Head W/WO Contrast IMPRESSION: Normal [place] without a demonstrated aneurysm or hemodynamically significant stenosis. Electronically Signed: Claude Nunez MD at 11:56 EDT ,
[2022-03-28 11:07] LABS: Partial Thromboplast Time 35.1 Seconds (24.1-36.2)
[2022-03-28] MEDS: HYDROmorphone 0.5 MG/0.5 ML SYRINGE IV ×2 (11:07→12:05)
[2022-03-28 11:29] LABS: Anisocytosis 1+
--- NOTE | 2022-03-28 11:31 | NURSING ---
AUTO LAUNCH CALLED.
--- NOTE | 2022-03-28 11:41 | NURSING ---
1136 AUTO LAUNCH AIR, ETA IS 15 MIN
--- NOTE | 2022-03-28 16:30 | ED.RN ---
spoke with son for patient update.
== END 2022-03-28 12:14 | disposition short-term general hospital (02) ==
PROVIDERS: Emergency Provider Emergency Medicine; PCP Family Medicine; Visit Provider Emergency Medicine
DX: I62.01 Nontraumatic acute subdural hemorrhage (principal); E11.51 Type 2 diabetes mellitus with diabetic peripheral angiopathy without gangrene; I60.9 Nontraumatic subarachnoid hemorrhage, unspecified; I10 Essential (primary) hypertension; E86.0 Dehydration; I25.10 Atherosclerotic heart disease of native coronary artery without angina pectoris; E78.5 Hyperlipidemia, unspecified; J32.9 Chronic sinusitis, unspecified
CPT/HCPCS: 70450; 70496; 80048; 85025; 85610; 85652; 85730; 87811; 93005; 99285; J7040; Q9967; A4216; J2405

== ENCOUNTER 2022-04-05 16:25 | Inpatient (IN) | payer MEDICARE, SELFPAY ==
[2022-04-05 16:36] VITALS: BP 135/72; PULSE 66; RESP 16; TEMP 36.7; O2SAT 98; BMI 24.5
--- NOTE | 2022-04-05 18:15 | PCM.HP.STD ---
[facility] Date of Admission: 04/05/22 Date of Service: 04/05/22 Chief Complaint: Debility due to subdural hematoma. HPI Narrative KAELYN DRUMMOND, is a 66 YO F with a PMH of PVD with hx of a LLE stent, anxiety, hx of alcoholism, colon polyps, chronic back pain, diverticulosis, hypertension, history of gastritis, hyperlipidemia, marijuana use, coronary artery disease with history of stent placement in L circ on 10/10/2015, tobacco dependence, history of uterine cancer, left upper lobe pulmonary nodule, iron deficiency anemia, obesity, rheumatoid arthritis, type Diabetes mellitus type II and L SDH/TBI in October of 2021 due to a fall (required crainotomy and blood alcohol in the ED was 177) who presented to the ED at [facility] on 03/28/22 from her PCP's office c/o severe GOMES for 3 days and associated N/V/photophobia. Noncontrast CT brain in the emergency room showed a small to moderate size acute right subdural hematoma with a midline shift from right to left of 0.9 cm. She denied any recent trauma to the head. She was transferred to [facility] for further evaluation. She was taken to the OR on 03/28/22 for evacuation of the hematoma by Dr. Granados. Post op course was complicated by Delirium and dysphagia. She was seen by ST. She has expressive aphasia, dysarthria, receptive aphasia and cognitive deficits in addition to dysphagia. She is on Minced and moist textures and thin liquids with 1:1 supervision at the time of DC from [facility]. ST/PT/OT recommended inpt acute rehab and she was transferred to [facility] acute inpt rehab on 04/04/22 for 3 hours of therapy daily to restore function at or near her prior level of function. Prior to this SDH she was ambulating with no AD. She lives at the [facility] by herself. She has no steps to enter the house. She has returned to work at the [employer] and she generally works 4 days a week. She tells me that she used to drink heavily from the age of 20 into her early 40s but then she started attending . Prior to her fall in October of this year she was drinking occasionally and stated she has not consumed any alcohol since being discharged from [facility] in November following craniotomy for subdural hematoma evacuation. She had the bone flap replaced in December of this year. She went to [facility] for rehab after release from the hospital in October. She tells me that she was no longer taking Pletal but she has been taking ASA 81 mg daily for hx of CAD with stent to the L circ. She denies claudication at this time. She continues to smoke 1 pack of cigarettes a day but she states that [facility] with her cravings. She wants to quit smoking. She tells me that she doesn't remember falling but, she must have to cause the SDH. No tox screen or ETOH level was done in the ED. [facility] Medical History (Updated 04/08/22 @ 11:[address] Anahi Latif DO) Abnormal gastrointestinal PET scan Anemia Anxiety Atherosclerosis of coronary artery of [place] heart without angina pectoris Back pain Black tarry stools Bladder disease Cancer Cardiology follow-up encounter Claudication Dietary restriction Essential (primary) hypertension Fatigue History of echocardiogram History of edema History of stress test Hoarseness Hyperlipidemia Iron deficiency anemia Iron deficiency anemia due to chronic blood loss Leg cramps Lung mass Marijuana use Nicotine dependence Obesity Peripheral vascular occlusive disease Rectal bleeding Rheumatoid arthritis Smoker Subdural hematoma Subdural hemorrhage Type 2 diabetes mellitus Wears dentures Wears glasses Home Medications metformin 1,000 mg tablet 1,000 mg PO BID dm 09/29/20 [History Last Taken Unknown] empagliflozin 25 mg tablet 25 mg PO DAILY@0800 dm 10/01/21 [History Last Taken Unknown] oxybutynin chloride 15 mg tablet,extended release 24 hr 15 mg PO DAILY bladder 10/01/21 [History Last Taken Unknown] acetaminophen 500 mg tablet 1,000 mg PO Q6H PRN Pain 04/05/22 [History Last Taken Unknown] atorvastatin 40 mg tablet 40 mg PO DAILY@2200 cholesterol 04/05/22 [History Last Taken Unknown] cholecalciferol (vitamin D3) 125 mcg (5,000 unit) tablet (Vitamin D3) 125 mcg PO DAILY supp 04/05/22 [History Last Taken Unknown] folic acid 1 mg tablet 1 mg PO DAILY supp 04/05/22 [History Last Taken Unknown] lacosamide 100 mg tablet 100 mg PO BID sewizure 04/05/22 [History Last Taken Unknown] lisinopril 10 mg tablet 10 mg PO DAILY bp 04/05/22 [History Last Taken Unknown] melatonin 5 mg tablet 5 mg PO QHS sleep 04/05/22 [History Last Taken Unknown] nicotine 21 mg/24 hr daily transdermal patch 1 patch transdermal Q24H smoking cess 04/05/22 [History Last Taken 04/05/22 08:00] polyethylene glycol 3350 17 gram oral powder packet (Miralax) 17 g PO DAILY lax 04/05/22 [History Last Taken Unknown] Allergy/AdvReac Type Severity Reaction Status Date / Time acetaminophen [From Percocet] Allergy Intermediate Itching Verified 03/28/22 10:33 oxycodone [From Percocet] Allergy Intermediate Itching Verified 03/28/22 10:33 Family History Sister Diabetes Breast cancer Brother Cancer throat Hypertension Surgical History (Updated 04/08/22 @ 11:[address] Anahi Latif DO) History of angioplasty of peripheral vessel History of cholecystectomy History of coronary artery stent placement (10/10/15) History of esophagogastroduodenoscopy (EGD) History of hysterectomy History of left heart catheterization (10/09/15) Hx of colonoscopy Hx of heart artery stent S/P craniotomy S/P craniotomy Social History household members: none and other details: She has 2 sons who live locally and can help her and also has 2 sisters housing: apartment number of children: 2 financial difficulty paying for basics: somewhat hard service: No current occupational status: employed current occupation: [employer] at [employer] and she works 4 days a week Smoking Status: Heavy Smoker (>10/day) Tobacco: How many years used: 50 second hand exposure: Yes alcohol intake: current details: Tells me that she has not had a drink since the craniotomy in October 2021 substance use type: other details: Has used marijuana in the past but denies current use. mary beth/jew: Presybeterian seatbelt use: always do you feel safe at home: Yes ROS Constitutional Constitutional: Reports anorexia and other Details: Tells me that she has lost 50 lbs over the past 9 months. She moved in August and appt is $100 more now and she is anxious and has not been eating ; Denies change in weight, chills, fatigue, fever(s), night sweats or weakness Eyes Eyes: Denies blurry vision, change in vision, eye pain, loss of vision or photophobia ENT HEENT: Reports dysphagia and headache(s); Denies abnormal hearing, hearing loss, nasal congestion or sore throat Cardiovascular Cardiovascular: Denies chest pain, dyspnea on exertion, edema, lightheadedness, orthopnea, palpitations, paroxysmal nocturnal dyspnea or syncope Respiratory/Chest Respiratory/Chest: Denies cough, dyspnea, shortness of breath at rest, shortness of breath with exertion or wheezing Gastrointestinal Gastrointestinal: Reports constipation; Denies abdominal pain, diarrhea, dyspepsia, hematemesis, hematochezia, nausea or vomiting Genitourinary Genitourinary: Denies dysuria, hematuria, nocturia, urinary frequency, urinary hesitancy, urinary incontinence or urinary urgency Musculoskeletal Musculoskeletal: Reports back pain and other Details: Has had RUE pain which is new since the recent SDH. She thinks she may have got her arm stuck in the door and then fallen.......she can not really recall what happened. ; Denies joint pain, joint swelling or neck pain Integumentary Integumentary: Reports dry skin and other Details: R side craniotomy incision and a Left craniotomy healed scar ; Denies hirsutism, jaundice, rash or unusual bruising Neurologic Neurologic: Reports headache(s) and weakness; Denies abnormal speech, confusion, disequilibrium, dizziness, focal weakness, paresthesias, restless legs, seizure-like activity, seizures or tremor(s) Psychiatric Psychiatric: Denies anxiety, depression, homicidal ideation or suicidal ideation Endocrine Endocrinology: Denies change in body appearance, polydipsia or polyuria Hematologic/Lymphatic Hematologic/Lymphatic: Denies easy bleeding, easy bruising or lymphadenopathy Allergic/Immunologic Allergic/Immunologic: Denies rhinitis, eczemia or asthma Vital Signs Vital Signs Vital Signs: 04/05/22 16:36 Temperature 98.1 F Temperature Source Oral Pulse Rate 66 Respiratory Rate 16 Blood Pressure 135/72 H Blood Pressure Mean 93 Blood Pressure Source Monitor Blood Pressure Position Semi-Fowlers Blood Pressure Location Right Arm Pulse Ox 98 Oxygen Delivery Method Room Air Weight Weight: 134 lb 7.712 oz Body Mass Index (BMI) 24.5 Physical Exam Const alert, oriented x3 and no apparent distress Constitutional Narrative: Making good eye contact, appropriate. She was able to tell me he month, year, where she is currently and the president. She could not remember the governor's name. General Appearance: cooperative, comfortable and well developed; Negative for anxious or diaphoretic Orientation / Consciousness: oriented to person, oriented to place and oriented to time HEENT HEENT Narrative: Dry mucous membranes. Eyes PERRL, EOMs intact bilaterally, conjunctivae normal, no scleral icterus and normal visual busby by confrontation Neck no lymphadenopathy, supple, no JVD and no carotid bruits Lymph Lymphatic: no lymphadenopathy noted Chest palpation of chest normal Chest: symmetrical chest wall rise Resp normal respiratory effort and no use of accessory muscles Resp Narrative: Not tachypneic and no conversational dyspnea. Rare scattered short inspiratory wheeze....otherwise CTA Effort and Inspection: able to speak in complete sentences Cardio regular rate, regular rhythm, S1 normal heart sound, S2 normal heart sound, no murmurs, no rub and no gallops Cardio Narrative: No ectopy GI normal to inspection, nondistended, normoactive bowel sounds, soft to palpation, non-tender, no masses and no bruits GI Narrative: No guarding with palpation. no CVA tenderness Narrative: Denies dysuria. Extremity no clubbing, cyanosis or edema and no calf tenderness Extremity Narrative: large superficial varicosities of the LLE andre. Pedal pulses are diminished. The feet are both cool to the touch but, she has intact sensation. she denies claudication. Prior to the stent she could not walk more than 15 feet without severe pain in the RLE. Skin no jaundice Skin Narrative: No rashes, no skin breakdown. She has a R craniotomy scar and the margins are well coapted with no selina-incisional erythema, no dehiscence and no purulent DC. The left craniotomy is healed with scar present. General Skin Exam: no breakdown Neuro oriented x3, CN's II-XII intact bilaterally and no focal motor deficits Motor Exam: strength 5/5 throughout Psych thought process normal, cooperative, affect normal, activity/motor behavior normal, denies hallucinations, denies homicidal ideation and denies suicidal ideation Attitude: calm and engaged Activity / Motor Behavior: appropriate eye contact Mood & Affect: flat affect Attention / Concentration: attention grossly intact Results Lab / Micro Data Result Diagrams: 04/06/22 07:26 04/06/22 07:26 Assessment & Plan Assessment/Plan (1) Physical debility: (2) Subdural hematoma: (3) S/P craniotomy: (4) Type 2 diabetes mellitus: (5) Nicotine dependence: (6) Peripheral vascular occlusive disease: (7) Atherosclerosis of coronary artery of [place] heart without angina pectoris: (8) History of coronary artery stent placement: (9) Iron deficiency anemia due to chronic blood loss: (10) Essential (primary) hypertension: (11) Hyperlipidemia: PLAN: Plan PLAN PT for gait stability OT for ADL's ST for evaluation - for dysphagia and cognitive deficits Analgesics as needed Bowel protocol Fall precautions Assess for Anxiety/Depression GI prophylaxis with Protonix 40 mg p.o. daily DVT prophylaxis with RENAE hose and SCDs Follow up with Dr. Granados, Dr. Christianson, [facility] and Dr. Waldrop following DC from [facility] Rehab AM lab including CMP, CBC, Mag, Phos, HGBA1C and iron studies I am going to recommend at DC that she [facility] Smoking cessation counseling was given. Unit Exclusion This patient is an acute care inpatient being housed in the excluded unit because of capacity issues related to the disaster or emergency.: Yes Charges/Coding Visit Charges Inpatient E&M: 56219 Init Hosp L3
[2022-04-05 18:26] LABS: Bedside Glucose 126 mg/dL (74-106)
--- NOTE | 2022-04-05 19:04 | NURSING ---
Son aware of admission and team.
[2022-04-05] MEDS: MELATONIN 10 MG TABLET 5 MG PO (21:23)
[2022-04-05] MEDS: Atorvastatin Calcium 40 MG Tablet PO (21:24)
[2022-04-05] MEDS: Senna/Docusate Sodium 1 Tablet 2 TABLET PO (21:24)
[2022-04-05] MEDS: Acetaminophen 500 MG Tablet 1000 MG PO (21:25)
[2022-04-05 21:30] VITALS: BP 116/60; PULSE 66; RESP 18; TEMP 36.7; O2SAT 97
[2022-04-05 22:26] LABS: Bedside Glucose 130 mg/dL (74-106)
[2022-04-05] MEDS: Lacosamide 100 MG Tablet PO (22:29)
[2022-04-06] MEDS: Acetaminophen 500 MG Tablet 1000 MG PO ×3 (05:28→20:05)
[2022-04-06 07:16] LABS: Bedside Glucose 129 mg/dL (74-106)
[2022-04-06 07:41] LABS: Hematocrit 34.8 % (37-47); Hemoglobin 10.8 g/dL (12.0-15.0); Mean Corpuscular Hgb 29.8 pg (27.0-32.0); Mean Corpuscular Volume 95.9 fL (81-99); Platelet Count 382 K/mm3 (150-450); RBC Distribution Width CV 17.3 % (11.6-14.6); RBC Distribution Width SD 61.3 fl (35.1-43.9); Red Blood Count 3.63 M/mm3 (4.2-5.4); White Blood Count 8.2 K/mm3 (4.4-11.0)
[2022-04-06 08:05] LABS: ALB/GLOB Ratio 0.6 RATIO (0.9-2.4); AST(SGOT) 12 U/L (15-37); Alanine Aminotransfer ALT/SGPT 25 U/L (13-56); Albumin, Serum 2.6 g/dL (3.2-5.0); Alkaline Phosphatase 96 U/L (45-117); Anion Gap 6 (5-15); BUN 12 mg/dL (7-18); BUN/Creat Ratio 30.5 RATIO (10-20); Calcium,Total 8.7 mg/dL (8.5-10.1); Chloride 105 mmol/L (98-107); Creatinine, Serum 0.39 mg/dL (0.55-1.02); EST Glomerular Filtration Rate 172 mL/min (>60); Est Glom Filt Rate - Afr Amer 208 mL/min (>60); Estimated Creatinine Clearance 43.18 ml/min; Globulin 4.1 g/dL (2.2-4.2); Glucose 140 mg/dL (74-106); Phosphorus 2.9 mg/dL (2.5-4.9); Potassium 3.9 mmol/L (3.5-5.1); Protein, Total 6.7 g/dL (6.4-8.2); Sodium Level 138 mmol/L (136-145)
[2022-04-06 08:12] LABS: Hemoglobin A1c 5.3 % (3.8-5.6)
[2022-04-06] MEDS: Senna/Docusate Sodium 1 Tablet 2 TABLET PO ×2 (09:16→20:04)
[2022-04-06] MEDS: NYSTATIN 500,000 UNIT/5 ML UDC 500000 UNIT PO ×4 (09:16→20:04)
[2022-04-06] MEDS: Folic Acid 1 MG Tablet PO (09:17)
[2022-04-06] MEDS: metFORMIN HCl 1,000 MG Tablet 1000 MG PO ×2 (09:17→17:13)
[2022-04-06] MEDS: Cholecalciferol (Vit D3) 125 MCG CAPSULE (5,000 UNITS) PO (09:17)
[2022-04-06] MEDS: Lisinopril 10 MG Tablet PO (09:18)
[2022-04-06] MEDS: Polyethylene Glycol 3350 17 GM PACKET PO (09:18)
[2022-04-06] MEDS: Empagliflozin 25 MG Tablet PO (09:19)
[2022-04-06] MEDS: Tolterodine Tartrate 4 MG CAP.SA PO (09:19)
[2022-04-06] MEDS: Lacosamide 100 MG Tablet PO ×2 (09:28→20:05)
[2022-04-06 09:30] VITALS: BP 111/56; PULSE 52; RESP 16; TEMP 36.7; O2SAT 99
[2022-04-06 12:35] LABS: Bedside Glucose 132 mg/dL (74-106)
[2022-04-06 13:40] LABS: Ferritin 93 ng/mL (8-252); Iron 42 ug/dL (50-170); Iron Binding Capacity,Total 270 ug/dL (250-450); PERCENT IRON SATURATION 15.6 % (15.0-55.0)
[2022-04-06 17:10] LABS: Bedside Glucose 120 mg/dL (74-106)
[2022-04-06 19:25] VITALS: BP 107/63; PULSE 75; RESP 18; TEMP 36.4; O2SAT 99
[2022-04-06] MEDS: Atorvastatin Calcium 40 MG Tablet PO (20:05)
[2022-04-06] MEDS: MELATONIN 10 MG TABLET 5 MG PO (20:05)
--- NOTE | 2022-04-07 02:58 | MDS.RN ---
Reviewed and agree with DENTAL SURGEON documentation.
[2022-04-07 03:21] LABS: Bedside Glucose 119 mg/dL (74-106)
[2022-04-07] MEDS: Acetaminophen 500 MG Tablet 1000 MG PO ×3 (04:52→21:25)
[2022-04-07 06:25] LABS: Bedside Glucose 145 mg/dL (74-106)
[2022-04-07 08:45] VITALS: BP 135/63; PULSE 60; RESP 16; TEMP 36; O2SAT 100
[2022-04-07] MEDS: Senna/Docusate Sodium 1 Tablet 2 TABLET PO ×2 (09:52→21:26)
[2022-04-07] MEDS: Folic Acid 1 MG Tablet PO (09:52)
[2022-04-07] MEDS: metFORMIN HCl 1,000 MG Tablet 1000 MG PO ×2 (09:53→16:33)
[2022-04-07] MEDS: Empagliflozin 25 MG Tablet PO (09:54)
[2022-04-07] MEDS: Polyethylene Glycol 3350 17 GM PACKET PO (09:55)
[2022-04-07] MEDS: Tolterodine Tartrate 4 MG CAP.SA PO (09:55)
[2022-04-07] MEDS: Cholecalciferol (Vit D3) 125 MCG CAPSULE (5,000 UNITS) PO (09:55)
[2022-04-07] MEDS: NYSTATIN 500,000 UNIT/5 ML UDC 500000 UNIT PO ×4 (09:57→21:26)
[2022-04-07] MEDS: Lisinopril 10 MG Tablet PO (10:02)
[2022-04-07] MEDS: Lacosamide 100 MG Tablet PO ×2 (10:02→21:26)
[2022-04-07 12:45] LABS: Bedside Glucose 115 mg/dL (74-106)
[2022-04-07] MEDS: oxyCODONE 5 MG Tablet PO ×2 (14:39→23:25)
[2022-04-07 17:05] LABS: Bedside Glucose 175 mg/dL (74-106)
[2022-04-07 19:22] VITALS: BP 124/64; PULSE 63; RESP 16; TEMP 36.6; O2SAT 99
[2022-04-07] MEDS: Atorvastatin Calcium 40 MG Tablet PO (21:26)
[2022-04-07] MEDS: MELATONIN 10 MG TABLET 5 MG PO (21:26)
[2022-04-07 21:31] LABS: Bedside Glucose 148 mg/dL (74-106)
[2022-04-07 22:00] VITALS: PULSE 89; RESP 16; O2SAT 95
[2022-04-08] MEDS: Acetaminophen 500 MG Tablet 1000 MG PO ×3 (05:41→21:31)
[2022-04-08 07:11] LABS: Bedside Glucose 129 mg/dL (74-106)
[2022-04-08] MEDS: oxyCODONE 5 MG Tablet PO ×2 (07:23→19:47)
[2022-04-08 07:41] VITALS: BP 135/72; PULSE 60; RESP 17; TEMP 36.3; O2SAT 94
[2022-04-08] MEDS: metFORMIN HCl 1,000 MG Tablet 1000 MG PO ×2 (07:51→17:04)
[2022-04-08] MEDS: Empagliflozin 25 MG Tablet PO (07:51)
[2022-04-08] MEDS: Cholecalciferol (Vit D3) 125 MCG CAPSULE (5,000 UNITS) PO (07:51)
[2022-04-08] MEDS: Folic Acid 1 MG Tablet PO (07:51)
[2022-04-08] MEDS: Tolterodine Tartrate 4 MG CAP.SA PO (07:52)
[2022-04-08] MEDS: Polyethylene Glycol 3350 17 GM PACKET PO (07:52)
[2022-04-08] MEDS: Senna/Docusate Sodium 1 Tablet 2 TABLET PO ×2 (07:54→21:31)
[2022-04-08] MEDS: NYSTATIN 500,000 UNIT/5 ML UDC 500000 UNIT PO ×4 (07:54→21:31)
[2022-04-08] MEDS: Lisinopril 10 MG Tablet PO (07:55)
[2022-04-08] MEDS: Lacosamide 100 MG Tablet PO ×2 (08:04→21:31)
--- NOTE | 2022-04-08 10:55 | REHABEVAL_ITS ---
Admission Information Primary Diagnosis:: Debility secondary to subdural hematoma requiring craniotomy to evacuate and decompress. Status Changes from Prescreening?: No changes Identified Actual Problem List:: Skin Intergrity, Pain, ALteration in Cmfrt, Bowel, Constipation, Mobility Impaired, Self Care Deficit, Know.Dfct/Disease Process and Alteration-Leisure Activ. Potential Problem List:: DVT, Bleeding, Infection, UTI, Aspiration, Falls, Skin Integrity and Depression Risk of Complications DVT: RENAE Hose and Sequential Compression Device Bleeding: Monitor Lab Values, Nursing to Teach Precautions for anti-coagulation therapy., Wound, if applicable, to be assessed every shift. and Stroke patients assessed for lethargy or change in status. Infection: Clinical Staff to Monitor for S/S of infection: and S/S of infection include fever, redness, warmth, etc. Urinary Tract Infection: Monitor for frequency, burning, discomfort, or incontinence. and Nursing will obtain urine sample for urinalysis and C&S when ordered. Aspiration: Clinical staff will monitor for coughing, drooling, congestion., Speech will evaluate swallowing and dsyphasia. and Nursing will monitor patient swallowing during meals. Falls: Patient will be evaluated for Fall Precautions and Patient will be placed on Fall Precautions as indicated per protocol. Skin Breakdown: Nursing will assess skin daily using assessment tool. and Nursing will place on Skin Breakdown Precautions as indicated. Pain: Clinical staff will assess patient's pain level per protocol., Medications will be given, if needed, and the pain level reassessed. and Other methods: Massage, distraction, decrease stimulus, etc. used PRN. Plan of Care Patient requires physician specializing in physical medicine and rehab oversight to provide close medical supervision of rehab issues including: Pain Management, Sleep Problems, Bowel and Bladder, Medical and co-morbidity Management, DVT prophylaxis, Rehabilitation Leadership and Coordination of treatment team Patient needs Physical Therapy: For a minimum of 1 hour and At least 5 out of 7 days Patient needs Physical Therapy to improve:: Mobility, Strengthening, Transfers, Stretching, ROM, Endurance, Stairs, Gait and Balance Patient needs Occupational Therapy: For a minimum of 1 hour and At least 5 out of 7 days Patient needs Occupational Therapy to improve ADL's incl.: Eating, Grooming, Bathing, Dressing, Toileting, Toilet transfers, Community Reintegration, Higher functioning activities, Household tasks, Adaptive Equipment, Splinting and Other activities as determined Patient requires speech therapy: For a minimum of 1 hour and At least 5 out of 7 days Patient requires speech therapy for: Swallowing, Cognition, Language Skills and Compensatory Strategies Patient requires 24/ Rehabilitation Nursing for: Pain Issues, Identifying and preventing risk factors, Monitoring and reporting current medical conditions, Assisting with ambulation, transfer, and all ADL's, Teaching patients about disease process and medications, Family teaching, Providing safe environment, Bowel and Bladder Issues, Skin integrity and Medication Management Patient needs Supervisor Grading/ Case Management for: Discharge Planning, Arranging Home Equipment or Services and Family Interventions Patient needs Dietary and Nutrition Services for: Adequate Nutrition, Nutritional Supplements and Nutritional Education Goals Patient will remain: free from falls and or injury at time of discharge. Patient will perform bed mobility at: MOD I level of assist. Patient will complete transfers from bed to chair at: MOD I level of assist. Patient will ambulate: with LRD and - (150 ft with steady reciprocal pattern) Patient will complete upper body dressing at: MOD I level of assist. Patient will complete lower body dressing at: MOD I level of assist. Patient will complete toileting at: MOD I level of assist. Patient will perform bathing at: - (supervision) Patient will complete grooming at: MOD I level of assist. Patient will complete home management skills at: MOD I level of assist. Patient will achieve: - (1 curb step with no HR with LRD) Patient will have pain level of: of 3 or less Patient's skin will: remain intact Patient will receive: adequate nutrition. Discharge Planning Pt Prognosis for Sig. Practical Improv. w/in Reasonable Time: Good Estimated Length of stay (days): 21 Anticipated D/C Destination: Home with Home Health
--- NOTE | 2022-04-08 11:15 | NURSING ---
message left with Dr Mackenzie's PA to see when pt can start DVT proplyaxis.
--- NOTE | 2022-04-08 11:41 | PN_ITS ---
Subjective Subjective Anitra was seen on team rounds today. Her son Fred participated by phone. Afebrile VSS Maintaining appropriate oxygen saturation on RA Oral intake is good. Routinely eating 75 to 100% of her meal. Discussed with nursing - Yesterday she c/o GOMES that was unrelieved with Tylenol. She was started on Oxycodone 5 mg PO Q6H PRN pain > 3. Reviewed the PT/OT/ST notes - SHASTA III was done with pt today by St and she scor ed 80/100. Medication list reviewed. All lab was personally reviewed. Ferritin is 93, up from 6 in February. She does not absorb oral iron and she receives IV Iron Sucrose from Dr. Waldrop. Iron saturation is low at 15.3% so will give 400 mg IV iron over 2 days. Ferritin may be elevated due to acute inflammation related to SDH and craniotomy. Steff complains of a headache to nurses but not to me. She is not taking the oxycodone as often as she could. She does not appear to be in any distress at the current time and is lying in bed. She denies chest pain, shortness of breath, palpitations, lightheadedness, nausea/vomiting/abdominal pain, dysuria, calf pain, vertigo. Objective Data Objective Data Vital Signs: Vital Signs Temp Pulse Resp BP Pulse Ox O2 Del Method 97.4 F L 60 17 135/72 H 94 Room Air 04/08/22 07:41 04/08/22 07:41 04/08/22 07:41 04/08/22 07:41 04/08/22 07:41 04/08/22 07:41 Oxygen Delivery Method Room Air Weight: 148 lb 9.465 oz Body Mass Index (BMI) 24.5 Intake & Output: Intake and Output for Last 24 Hours 04/06/22 04/07/22 04/08/22 23:59 23:59 23:59 Intake Total 360 / 360 Output Total 850 / 850 Balance -490 / -490 Lab / Micro Data Result Diagrams: 04/06/22 07:26 04/06/22 07:26 Labs: Laboratory Results - last 24 hr 04/07/22 12:24: POC Glucose 115 H 04/07/22 16:47: POC Glucose 175 H 04/07/22 21:09: POC Glucose 148 H 04/08/22 06:13: POC Glucose 129 H Physical Exam Const alert, oriented x3 and no apparent distress General Appearance: cooperative, comfortable and well developed Eyes PERRL, EOMs intact bilaterally, conjunctivae normal, no scleral icterus and normal visual busby by confrontation Neck no lymphadenopathy, supple, no JVD and no carotid bruits Resp normal respiratory effort, no use of accessory muscles and clear to auscultation bilaterally Resp Narrative: Not tachypneic and no conversational dyspnea. Diminished in the bases posteriorly. Effort and Inspection: able to speak in complete sentences Cardio regular rate, regular rhythm, S1 normal heart sound, S2 normal heart sound, no murmurs, no rub and no gallops Cardio Narrative: No ectopy GI normal to inspection, nondistended, normoactive bowel sounds, soft to palpation, non-tender, no masses and no bruits GI Narrative: No guarding with palpation. no CVA tenderness Narrative: Denies dysuria. Extremity no clubbing, cyanosis or edema and no calf tenderness Extremity Narrative: Pedal pulses are diminished. The feet are both cool to the touch but, she has intact sensation. Denies claudication. Prior to the stent she could not walk more than 15 feet without severe pain in the RLE. Skin no jaundice Skin Narrative: The incision is healing well with no dehiscence, no erythema, no purulent discharge and no significant swelling in the selina-incisional area. General Skin Exam: no breakdown Neuro oriented x3, CN's II-XII intact bilaterally and no focal motor deficits Motor Exam: strength 5/5 throughout Psych thought process normal, cooperative, activity/motor behavior normal, denies hallucinations, denies homicidal ideation and denies suicidal ideation Attitude: calm Activity / Motor Behavior: appropriate eye contact Mood & Affect: flat affect Attention / Concentration: attention grossly intact Assessment & Plan Assessment/Plan (1) Physical debility: PLAN: Continue PT/OT/ST. (2) Subdural hematoma: PLAN: Etiology of the recent right subdural hematoma is unclear at this time. Patient denies any falls however, she does not remember what happened and cannot rule out a fall at this time. I am somewhat concerned that she may be drinking again and having gait instability. She denies however she has a hx of alcoholism and has attended AA and the SDH in October was related to high ETOH level of 177. We discussed the need to stop ETOH completely. (3) S/P craniotomy: PLAN: Incision is healing well (4) Iron deficiency anemia due to chronic blood loss: PLAN: IV Iron sucrose 200 mg X 2 doses ordered. (5) Type 2 diabetes mellitus: PLAN: BS's are well controlled and the HGBA1C is < 6. Is she getting hypoglycemic at home......does she skip meals when she is working? No hypoglycemia since she was admitted to rehab. Will change the Accuchecks to (6) Nicotine dependence: PLAN: Smoking cessation counseling was given once again. She has a nicotine patch on and states that it is cutting down on cravings. She would like to quit smoking. I reinforced with her that smoking is a large contributor to coronary artery disease and peripheral vascular disease and she has already had a stent in the right lower extremity and a stent in the left circumflex. PLAN: Plan 1. Iron sucrose 200 mg daily X 2 days. 2. Start Protonix due to hx of chronic gastritis 3. Continue thrapy. Charges/Coding Visit Charges Inpatient E&M: 54713 Subs Hosp L2
[2022-04-08] MEDS: Pantoprazole Sodium 40 MG Tablet PO (12:33)
--- NOTE | 2022-04-08 13:00 | CASEMGMT ---
Social Work IDT met with patient and son via conference call for Team meeting. Discussed patient's progress in PT/OT/ST/SN. Explained [employer] insurance with NRD 04/11 and continued stay is not guaranteed with each review. The goal is for pt to return home alone. Will Reteam next week. SW to continue to follow for DC planning. Melissa Victoria, LABORATORY SAMPLE CARRIER RELIABILITY TECHNOLOGIST
[2022-04-08 14:52] VITALS: O2SAT 93
[2022-04-08 19:18] VITALS: BP 117/56; PULSE 66; RESP 18; TEMP 36.7; O2SAT 99
[2022-04-08] MEDS: Atorvastatin Calcium 40 MG Tablet PO (21:30)
[2022-04-08] MEDS: MELATONIN 10 MG TABLET 5 MG PO (21:30)
[2022-04-08 22:00] VITALS: PULSE 71; RESP 17; O2SAT 99
[2022-04-09] MEDS: Acetaminophen 500 MG Tablet 1000 MG PO ×3 (05:41→21:43)
[2022-04-09] MEDS: Magnesium Hydroxide 30 ML UDC PO (05:50)
[2022-04-09 07:13] VITALS: BP 135/62; PULSE 62; RESP 18; TEMP 36.8; O2SAT 97
[2022-04-09] MEDS: Folic Acid 1 MG Tablet PO (08:49)
[2022-04-09] MEDS: Lacosamide 100 MG Tablet PO ×2 (08:50→21:45)
[2022-04-09] MEDS: Senna/Docusate Sodium 1 Tablet 2 TABLET PO ×2 (08:50→21:42)
[2022-04-09] MEDS: Polyethylene Glycol 3350 17 GM PACKET PO (08:50)
[2022-04-09] MEDS: NYSTATIN 500,000 UNIT/5 ML UDC 500000 UNIT PO ×4 (08:50→21:43)
[2022-04-09] MEDS: Pantoprazole Sodium 40 MG Tablet PO (08:50)
[2022-04-09] MEDS: Lisinopril 10 MG Tablet PO (08:50)
[2022-04-09] MEDS: metFORMIN HCl 1,000 MG Tablet 1000 MG PO ×2 (08:50→17:20)
[2022-04-09] MEDS: Tolterodine Tartrate 4 MG CAP.SA PO (08:50)
[2022-04-09] MEDS: Cholecalciferol (Vit D3) 125 MCG CAPSULE (5,000 UNITS) PO (08:50)
[2022-04-09] MEDS: Empagliflozin 25 MG Tablet PO (08:50)
--- NOTE | 2022-04-09 09:26 | NURSING ---
Addendum entered by Pastora Stone 04/09/22 14:37: also discussed suture removal. sutures are is to be removed on 02/11 Original Note: received call form Dr Mackenzie's office. pt is not to start DVT prophylaxis at this time
[2022-04-09] MEDS: 0.9% Saline Lock 10 ML Syringe IV (11:22)
[2022-04-09] MEDS: Sodium Ferric Gluconat 250 MG in 0.9% Normal Saline 250 ML 135 MG IV (11:23)
[2022-04-09] MEDS: oxyCODONE 5 MG Tablet PO ×2 (12:35→19:30)
--- NOTE | 2022-04-09 14:05 | PCM.PN.BLA ---
Progress Note Afebrile VSS Maintaining appropriate oxygen saturation on RA Oral intake is adequate Weight is stable Has been incontinent of urine. Discussed with nursing - no problems that need addressed Reviewed the PT/OT/ST notes Medication list reviewed. Tells me that she is feeling better. GOMES is better with the addition of Oxycodone to the drug regimen and she is taking usually 2 a day. Sleeping well. No nausea and no vomiting. No dysuria and denies flank pain. Denies CP, SOB, palpitations, calf pain, lightheadedness and vertigo. Physical Exam Const alert, oriented x3 and no apparent distress Constitutional Narrative: More alert than she was at admission. Calm and engaging. General Appearance: cooperative Resp normal respiratory effort, normal air movement and clear to auscultation bilaterally Resp Narrative: mildly diminished Cardio regular rate, regular rhythm and no gallops GI normal to inspection, nondistended, normoactive bowel sounds, soft to palpation and non-tender GI Narrative: No costovertebral angle pain Assessment & Plan Assessment/Plan (1) Physical debility: PLAN: Continue therapy. (2) Subdural hematoma: (3) S/P craniotomy: PLAN: The incision is healing well with no dehiscence, no erythema and no discharge. (4) Urinary incontinence: PLAN: Check a UA today. Will straight cath to obtain urine sample. Post void residuals are unremarkable. PLAN: Plan We discussed the fact that she has now had 2 SDH's this year and with this comes TBI. I stressed the importance of abstaining from alcohol consumption and anything else that impairs consciousness. I also gave smoking cessation counselling again. Visit Charges Inpatient E&M: 63568 Subs Hosp L2
--- NOTE | 2022-04-09 15:19 | CASEMGMT ---
Social Work During initial assessment, pt expressed financial hardships. 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 SW met with pt to discuss resources available. Pt requested this worker call or contact centre operator at [facility] to inquire about PTO. SW placed call to Mariya whom provided information that pt has 10 weeks of paid leave remaining and can return to work at any time, when medically cleared. SW contacted [facility] to speak with PFS. SW spoke with PFS rep whom completed an exceptional circumstances application via phone with this worker based on patient's monthly expenses. This application will determine if pt has financial hardship paying for additional medical expense based current monthly expenses. The application takes up to 30 days to determine eligibility and the letter of acceptance/denial will be mailed via [employer] to pts home address. Assisted pt in completing Medicaid application. Faxed application to [facility]. JESSICA updated pt. Pt appreciative. Melissa Victoria, TANJA JUSTIN
[2022-04-09 19:14] VITALS: BP 120/63; PULSE 60; RESP 16; TEMP 36.6; O2SAT 94
[2022-04-09] MEDS: MELATONIN 10 MG TABLET 5 MG PO (21:42)
[2022-04-09] MEDS: Atorvastatin Calcium 40 MG Tablet PO (21:42)
[2022-04-09 22:00] VITALS: PULSE 74; RESP 16; O2SAT 98
[2022-04-10] LABS: Mucous, Urine 0 SEEN /hpf (<or=2+); Squamous Epithelial Cells - UA 0 SEEN /hpf (5-10)
[2022-04-10 00:02] LABS: Color, Urine Yellow (Yellow); Glucose, Dipstick 1000 mg/dl (Normal); Ketone-Dipstick Negative (Negative); Leukocyte Esterase-Dipstick 500 /ul (Negative); Nitrite-Dipstick Positive (Negative); Occult Blood-Urine 10 /ul (Negative); Protein-Dipstick 15 mg/dl (Negative); Urine Bilirubin Dipstick Negative (Negative); Urine Clarity Sl. Cloudy (Clear); Urine Urobilinogen Normal (Normal)
[2022-04-10 00:09] LABS: Bacteria 2+ /hpf (None Seen); Red Blood Cells-Urine 5-10 SEEN /hpf (0-5); White Blood Cells >100 SEEN /hpf (0-5); White Cell Cast 0-5 SEEN /lpf (None Seen)
[2022-04-10] MEDS: Acetaminophen 500 MG Tablet 1000 MG PO ×3 (06:12→21:55)
[2022-04-10] MEDS: 0.9% Saline Lock 10 ML Syringe IV ×2 (06:39→10:01)
[2022-04-10] MEDS: Pantoprazole Sodium 40 MG Tablet PO (07:41)
[2022-04-10] MEDS: Senna/Docusate Sodium 1 Tablet 2 TABLET PO ×2 (07:41→21:55)
[2022-04-10] MEDS: Tolterodine Tartrate 4 MG CAP.SA PO (07:41)
[2022-04-10] MEDS: metFORMIN HCl 1,000 MG Tablet 1000 MG PO ×2 (07:41→17:47)
[2022-04-10] MEDS: Cholecalciferol (Vit D3) 125 MCG CAPSULE (5,000 UNITS) PO (07:41)
[2022-04-10] MEDS: Lisinopril 10 MG Tablet PO (07:41)
[2022-04-10] MEDS: Folic Acid 1 MG Tablet PO (07:41)
[2022-04-10] MEDS: NYSTATIN 500,000 UNIT/5 ML UDC 500000 UNIT PO ×4 (07:42→21:55)
[2022-04-10] MEDS: Empagliflozin 25 MG Tablet PO (07:42)
[2022-04-10] MEDS: Polyethylene Glycol 3350 17 GM PACKET PO (07:42)
[2022-04-10] MEDS: oxyCODONE 5 MG Tablet PO ×2 (07:44→22:00)
[2022-04-10] MEDS: Lacosamide 100 MG Tablet PO ×2 (07:44→21:55)
[2022-04-10 10:00] VITALS: BP 111/55; PULSE 55; PULSE 64; RESP 16; TEMP 36.6; O2SAT 100
[2022-04-10] MEDS: Sodium Ferric Gluconat 250 MG in 0.9% Normal Saline 250 ML 135 MG IV (10:01)
--- NOTE | 2022-04-10 10:21 | NURSING ---
Notified Dr. Latif of pt continual constipation and refusing enema or suppository. Received order for Dulcolax 10mg PO x1 dose. Will add order.
--- NOTE | 2022-04-10 11:19 | PCM.PN.BLA ---
Progress Note Day #1 cefadroxil Afebrile Vital signs stable Maintaining appropriate oxygen saturation on room air Adequate oral intake Steff had a UA done yesterday because of urinary incontinence and it was positive for nitrite and had greater than 100 WBCs per high-power field. Urine culture is pending. Alert Appropriate for me. Denies CP/SOB/abd pain/N/V. She has been constipated and has been getting stool softeners and is ordered PRN laxatives. Has refused enema in the past few days but, today she is asking for an enema. Mentation comes and goes. Impressions 1. SDH/TBI S/P R craniotomy - continue therapy 2. UTI with urinary incontinence - start Cefadroxil empirically and await the results of the culture. Visit Charges Inpatient E&M: 14578 Subs Hosp L1
[2022-04-10] MEDS: Cefadroxil 500 MG CAPSULE 1000 MG PO (12:09)
[2022-04-10] MEDS: Bisacodyl 5 MG Tablet 10 MG PO (12:09)
--- NOTE | 2022-04-10 18:40 | NURSING ---
Received call from Maricruz in Dr Granados's office stating the dr would like the pt to f/u in the office for suture removal and a CAT scan. This nurse made Maricruz aware that we would have to speak with Dr. Latif first. They did ask if the pt doesn't come to the office, if a CAT scan could be completed here.
[2022-04-10] MEDS: MELATONIN 10 MG TABLET 5 MG PO (21:55)
[2022-04-10] MEDS: Cefadroxil 500 MG CAPSULE PO (21:55)
[2022-04-10] MEDS: Atorvastatin Calcium 40 MG Tablet PO (21:55)
[2022-04-10 22:00] VITALS: BP 113/57; PULSE 59; RESP 14; TEMP 36.7; O2SAT 98
[2022-04-11] MEDS: Acetaminophen 500 MG Tablet 1000 MG PO ×3 (06:20→20:58)
[2022-04-11] MEDS: Folic Acid 1 MG Tablet PO (07:55)
[2022-04-11] MEDS: metFORMIN HCl 1,000 MG Tablet 1000 MG PO ×2 (07:55→17:48)
[2022-04-11] MEDS: Empagliflozin 25 MG Tablet PO (07:55)
[2022-04-11] MEDS: Cholecalciferol (Vit D3) 125 MCG CAPSULE (5,000 UNITS) PO (07:55)
[2022-04-11 09:09] VITALS: BP 124/67; PULSE 65; RESP 16; TEMP 36.6; O2SAT 99
[2022-04-11] MEDS: Pantoprazole Sodium 40 MG Tablet PO (09:46)
[2022-04-11] MEDS: NYSTATIN 500,000 UNIT/5 ML UDC 500000 UNIT PO ×4 (09:46→21:01)
[2022-04-11] MEDS: Lisinopril 10 MG Tablet PO (09:46)
[2022-04-11] MEDS: Senna/Docusate Sodium 1 Tablet 2 TABLET PO (09:46)
[2022-04-11] MEDS: Tolterodine Tartrate 4 MG CAP.SA PO (09:47)
[2022-04-11] MEDS: Polyethylene Glycol 3350 17 GM PACKET PO (09:47)
[2022-04-11] MEDS: Cefadroxil 500 MG CAPSULE PO ×2 (09:47→20:59)
[2022-04-11] MEDS: Lacosamide 100 MG Tablet PO ×2 (10:53→20:58)
[2022-04-11 11:51] LABS: Bedside Glucose 99 mg/dL (74-106)
[2022-04-11] MEDS: oxyCODONE 5 MG Tablet PO (17:54)
[2022-04-11] MEDS: MELATONIN 10 MG TABLET 5 MG PO (20:59)
[2022-04-11] MEDS: Atorvastatin Calcium 40 MG Tablet PO (21:00)
[2022-04-11] MEDS: Magnesium Hydroxide 30 ML UDC PO (21:12)
[2022-04-11] MEDS: 0.9% Saline Lock 10 ML Syringe IV (21:16)
[2022-04-11 22:00] VITALS: BP 101/39; PULSE 67; RESP 16; TEMP 36.6; O2SAT 99
[2022-04-12] MEDS: Acetaminophen 500 MG Tablet 1000 MG PO ×3 (06:36→21:55)
[2022-04-12] MEDS: NYSTATIN 500,000 UNIT/5 ML UDC 500000 UNIT PO ×4 (09:01→21:59)
[2022-04-12] MEDS: Polyethylene Glycol 3350 17 GM PACKET PO (09:03)
[2022-04-12] MEDS: Senna/Docusate Sodium 1 Tablet 2 TABLET PO ×2 (09:03→21:55)
[2022-04-12] MEDS: Folic Acid 1 MG Tablet PO (09:04)
[2022-04-12] MEDS: Lisinopril 10 MG Tablet PO (09:04)
[2022-04-12] MEDS: Cefadroxil 500 MG CAPSULE PO (09:04)
[2022-04-12] MEDS: Empagliflozin 25 MG Tablet PO (09:04)
[2022-04-12] MEDS: Cholecalciferol (Vit D3) 125 MCG CAPSULE (5,000 UNITS) PO (09:04)
[2022-04-12] MEDS: Tolterodine Tartrate 4 MG CAP.SA PO (09:04)
[2022-04-12] MEDS: metFORMIN HCl 1,000 MG Tablet 1000 MG PO ×2 (09:04→16:39)
[2022-04-12] MEDS: Pantoprazole Sodium 40 MG Tablet PO (09:04)
[2022-04-12] MEDS: Lacosamide 100 MG Tablet PO ×2 (09:13→21:56)
[2022-04-12 10:00] VITALS: BP 127/62; PULSE 56; RESP 16; TEMP 36.6; O2SAT 98
[2022-04-12] MEDS: oxyCODONE 5 MG Tablet PO ×2 (16:39→23:45)
--- NOTE | 2022-04-12 16:56 | PCM.PN.BLA ---
Progress Note Afebrile VSS Maintaining appropriate oxygen saturation on RA Oral intake is adequate Discussed with nursing - no problems that need addressed Reviewed the PT/OT/ST notes Medication list reviewed. She only took 1 oxycodone yesterday and 1 today so far. Urine culture grew 50,000 80,000 colonies of Pseudomonas aeruginosa which is sensitive to hyun quinolones and resistant to cefepime. It is also sensitive to Zosyn, Merrem and Primaxin. Denies chest pain, shortness of breath, cough, sore throat, lightheadedness, dysuria. Continues to have urinary incontinence. Cephalgia is improving. Alert, evasive, mentation is erratic, possibly due to the UTI. No BM recorded since 04/05/22. Had an enema yesterday and has been on Senna 2 BID. Denies abd pain. Abd is soft, no guarding with palpation low freq BS's present in all quadrants. no ankle edema, no calf tenderness. Impressions 1. S/P craniotomy for SDH -continue therapy 2. TBI 3. Tract infection secondary to Pseudomonas aeruginosa-discontinue cefadroxil and start Cipro 500 mg x 1 dose and then 250 mg twice daily for renally adjusted dose. Visit Charges Inpatient E&M: 37510 [facility] Hosp L1
--- NOTE | 2022-04-12 18:50 | RAD_ITS ---
STUDY: X-RAY - ABDOMEN/PELVIS REASON FOR EXAM: Female, 66 years old. Obstipation. TECHNIQUE: Two AP supine views of the abdomen and pelvis. COMPARISON: None. FINDINGS: Normal visualized lung bases. There is a nonspecific bowel gas pattern. Air and feces is seen throughout the colon without distention. There is no marked rectal feces. Air is also seen scattered nondilated small bowel loops most marked in the central abdomen. There is no demonstrated free abdominal air. The visualized liver, spleen and kidneys are grossly normal in size and morphology. Normal soft tissue structures. There are diffuse degenerative changes of the visualized lumbar spine. RAD/Abdomen Single View IMPRESSION: Nonspecific bowel gas pattern without evidence of bowel obstruction. Electronically Signed: Yogesh Lewis DO at 19:13 EDT ,
[2022-04-12 21:55] VITALS: BP 114/61; PULSE 63; RESP 18; TEMP 36.4; O2SAT 97
[2022-04-12] MEDS: Atorvastatin Calcium 40 MG Tablet PO (21:56)
[2022-04-12] MEDS: MELATONIN 10 MG TABLET 5 MG PO (21:57)
[2022-04-12] MEDS: Ciprofloxacin 500 MG Tablet PO (21:57)
[2022-04-13] MEDS: Acetaminophen 500 MG Tablet 1000 MG PO ×3 (04:52→20:02)
[2022-04-13 07:27] VITALS: BP 122/49; PULSE 56; RESP 16; TEMP 36.6; O2SAT 95
[2022-04-13] MEDS: Ciprofloxacin 250 MG Tablet PO ×2 (08:02→20:02)
[2022-04-13] MEDS: NYSTATIN 500,000 UNIT/5 ML UDC 500000 UNIT PO ×3 (08:02→16:22)
[2022-04-13] MEDS: Senna/Docusate Sodium 1 Tablet 2 TABLET PO (08:02)
[2022-04-13] MEDS: Lacosamide 100 MG Tablet PO ×2 (08:02→20:02)
[2022-04-13] MEDS: Cholecalciferol (Vit D3) 125 MCG CAPSULE (5,000 UNITS) PO (08:02)
[2022-04-13] MEDS: Tolterodine Tartrate 4 MG CAP.SA PO (08:03)
[2022-04-13] MEDS: metFORMIN HCl 1,000 MG Tablet 1000 MG PO ×2 (08:03→16:08)
[2022-04-13] MEDS: Polyethylene Glycol 3350 17 GM PACKET PO (08:03)
[2022-04-13] MEDS: Folic Acid 1 MG Tablet PO (08:03)
[2022-04-13] MEDS: Pantoprazole Sodium 40 MG Tablet PO (08:03)
[2022-04-13] MEDS: Lisinopril 10 MG Tablet PO (08:04)
[2022-04-13] MEDS: Empagliflozin 25 MG Tablet PO (08:05)
[2022-04-13] MEDS: Magnesium Hydroxide 30 ML UDC PO (08:32)
[2022-04-13 19:50] VITALS: BP 121/61; PULSE 64; RESP 16; TEMP 36.1; O2SAT 99
[2022-04-13] MEDS: Atorvastatin Calcium 40 MG Tablet PO (20:01)
[2022-04-13] MEDS: MELATONIN 10 MG TABLET 5 MG PO (20:01)
[2022-04-13] MEDS: oxyCODONE 5 MG Tablet PO (21:56)
[2022-04-14] MEDS: Acetaminophen 500 MG Tablet 1000 MG PO ×3 (06:08→21:21)
[2022-04-14 07:27] VITALS: BP 128/70; PULSE 54; RESP 18; TEMP 36; O2SAT 100
[2022-04-14] MEDS: NYSTATIN 500,000 UNIT/5 ML UDC 500000 UNIT PO ×4 (09:25→21:28)
[2022-04-14] MEDS: Ciprofloxacin 250 MG Tablet PO ×2 (09:26→21:20)
[2022-04-14] MEDS: Tolterodine Tartrate 4 MG CAP.SA PO (09:27)
[2022-04-14] MEDS: Lisinopril 10 MG Tablet PO (09:27)
[2022-04-14] MEDS: Folic Acid 1 MG Tablet PO (09:27)
[2022-04-14] MEDS: Pantoprazole Sodium 40 MG Tablet PO (09:27)
[2022-04-14] MEDS: Cholecalciferol (Vit D3) 125 MCG CAPSULE (5,000 UNITS) PO (09:28)
[2022-04-14] MEDS: Empagliflozin 25 MG Tablet PO (09:28)
[2022-04-14] MEDS: Lacosamide 100 MG Tablet PO ×2 (09:33→21:21)
[2022-04-14] MEDS: metFORMIN HCl 1,000 MG Tablet 1000 MG PO ×2 (09:37→17:24)
[2022-04-14 19:54] VITALS: BP 108/42; PULSE 61; RESP 16; TEMP 36.8; O2SAT 99
[2022-04-14] MEDS: MELATONIN 10 MG TABLET 5 MG PO (21:20)
[2022-04-14] MEDS: Atorvastatin Calcium 40 MG Tablet PO (21:21)
[2022-04-14] MEDS: oxyCODONE 5 MG Tablet PO (21:21)
[2022-04-14] MEDS: Senna/Docusate Sodium 1 Tablet 2 TABLET PO (21:21)
[2022-04-14 21:30] VITALS: PULSE 61; RESP 16; O2SAT 99
--- NOTE | 2022-04-15 04:37 | NURSING ---
Reviewed and agree with KINDERGARTNERS HELPER documentation and assessment charting.
[2022-04-15 05:39] LABS: Absolute Lymphocyte Count 2.33 X10^3/uL (0.83-4.51); Absolute Neutrophil Count 3.8 X10^3/uL (2.0-7.7); Basophil# 0.04 X10^3/uL; Basophil% 0.6 % (0-1); Eosinophil# 0.09 X10^3/uL; Eosinophils% 1.3 % (0-5); Hematocrit 38.6 % (37-47); Hemoglobin 11.7 g/dL (12.0-15.0); Lymphocyte # 2.33 X10^3/ul (0.83-4.51); Lymphocyte % 34.4 % (19-41); Mean Corp Hgb Conc 30.3 g/dL (32-36); Mean Corpuscular Hgb 29.4 pg (27.0-32.0); Mean Platelet Vol. 8.9 fl (6.2-12.0); Monocyte% 7.4 % (0-10); NRBC Flagged by Analyzer 0 % (0-5); Neutrophil # 3.78 X10^3/uL (2.7-7.7); Neutrophil % 55.9 % (47-70); Platelet Count 370 K/mm3 (150-450); RBC Distribution Width CV 17.9 % (11.6-14.6); RBC Distribution Width SD 63.7 fl (35.1-43.9); Red Blood Count 3.98 M/mm3 (4.2-5.4); White Blood Count 6.8 K/mm3 (4.4-11.0)
[2022-04-15 06:08] LABS: Anion Gap 8 (5-15); BUN 18 mg/dL (7-18); BUN/Creat Ratio 41.9 RATIO (10-20); Calcium,Total 8.6 mg/dL (8.5-10.1); Chloride 105 mmol/L (98-107); Creatinine, Serum 0.43 mg/dL (0.55-1.02); EST Glomerular Filtration Rate 156 mL/min (>60); Est Glom Filt Rate - Afr Amer 188 mL/min (>60); Estimated Creatinine Clearance 43.18 ml/min; Glucose 97 mg/dL (74-106); Potassium 3.9 mmol/L (3.5-5.1); Sodium Level 138 mmol/L (136-145)
[2022-04-15] MEDS: Acetaminophen 500 MG Tablet 1000 MG PO ×3 (06:41→21:11)
[2022-04-15] MEDS: Cholecalciferol (Vit D3) 125 MCG CAPSULE (5,000 UNITS) PO (07:37)
[2022-04-15] MEDS: Folic Acid 1 MG Tablet PO (07:37)
[2022-04-15] MEDS: metFORMIN HCl 1,000 MG Tablet 1000 MG PO ×2 (07:37→17:06)
[2022-04-15] MEDS: Empagliflozin 25 MG Tablet PO (07:37)
[2022-04-15 07:51] VITALS: BP 119/58; PULSE 55; RESP 18; TEMP 36.1; O2SAT 99
[2022-04-15] MEDS: Ciprofloxacin 250 MG Tablet PO ×2 (10:15→21:11)
[2022-04-15] MEDS: Senna/Docusate Sodium 1 Tablet 2 TABLET PO ×2 (10:16→21:12)
[2022-04-15] MEDS: NYSTATIN 500,000 UNIT/5 ML UDC 500000 UNIT PO ×4 (10:16→21:11)
[2022-04-15] MEDS: Tolterodine Tartrate 4 MG CAP.SA PO (10:16)
[2022-04-15] MEDS: Lisinopril 10 MG Tablet PO (10:16)
[2022-04-15] MEDS: Pantoprazole Sodium 40 MG Tablet PO (10:16)
[2022-04-15] MEDS: Polyethylene Glycol 3350 17 GM PACKET PO (10:16)
[2022-04-15] MEDS: Lacosamide 100 MG Tablet PO ×2 (10:30→21:12)
--- NOTE | 2022-04-15 11:46 | PN_ITS ---
Subjective Subjective Afebrile VSS Maintaining appropriate oxygen saturation on RA Oral intake is good Discussed with nursing - no problems that need addressed Reviewed the PT/OT/ST notes Medication list reviewed. she has no complaints today. Gets a GOMES at night when she rolls over onto the R side and so she has been taking a Oxycodone at HS and she is sleeping better. Mentation is much better and she is much more alert and not sleeping as much during the day. She denies cough, shortness of breath, lightheadedness, calf pain, dysuria, nausea/vomiting/abdominal pain. [place] were removed over the weekend and she states it went well and the nurses did a good job. She feels as though she is ready for DC in the near future and wants to schedule a DC date. She tells me that she has 5 people who are willing to stay with her for a time and she will not be alone. All lab from today was personally reviewed. Hemoglobin is up to 11.7 from 10.81-week ago. White blood cell count is within normal limits and platelets are normal. BMP is unremarkable. The BUN is 18 and the creatinine is 0.43. Fasting glucose was 97 this morning. Objective Data Objective Data Vital Signs: Vital Signs Temp Pulse Resp BP Pulse Ox O2 Del Method 97.0 F L 55 L 18 119/58 L 99 Room Air 04/15/22 07:51 04/15/22 07:51 04/15/22 07:51 04/15/22 07:51 04/15/22 07:51 04/15/22 07:51 Oxygen Delivery Method Room Air Weight: 148 lb 9.465 oz Body Mass Index (BMI) 24.5 Intake & Output: Intake and Output for Last 24 Hours 04/13/22 04/14/22 04/15/22 23:59 23:59 23:59 Intake Total 480 / 480 Balance 480 / 480 Lab / Micro Data Result Diagrams: 04/15/22 05:32 04/15/22 05:32 Labs: Laboratory Results - last 24 hr 04/15/22 05:32: WBC 6.8, RBC 3.98 L, Hgb 11.7 L, Hct 38.6, MCV 97.0, MCH 29.4, MCHC 30.3 L, RDW Std Deviation 63.7 H, RDW Coeff of Martha 17.9 H, Plt Count 370, MPV 8.9, Immature Gran % (Auto) 0.400, Neut % (Auto) 55.9, Lymph % (Auto) 34.4, [place] % (Auto) 7.4, Eos % (Auto) 1.3, Baso % (Auto) 0.6, Absolute Neuts (auto) 3.8, Absolute Lymphs (auto) 2.33, Nucleated RBC % 0 04/15/22 05:32: Sodium 138, Potassium 3.9, Chloride 105, Carbon Dioxide 25.0, Anion Gap 8, BUN 18, Creatinine 0.43 L, Estim Creat Clear Calc 43.18, Est GFR (MDRD) Af Amer 188, Est GFR (MDRD) Non-Af 156, BUN/Creatinine Ratio 41.9 H, Glucose 97, Calcium 8.6 Micro: Microbiology 04/09/22 23:53 Urine, Catheterized Urine Culture - Final Pseudomonas aeroginosa Physical Exam Const alert, oriented x3 and no apparent distress Constitutional Narrative: very talkative today making good eye contact, engaged in the conversation, appears healthy General Appearance: cooperative HEENT HEENT Narrative: The craniotomy incision is intact with no dehiscence, no erythema, no DC and no swelling. Joshua have been removed. MM are moist and there is no evidence of thrush. Eyes PERRL and EOMs intact bilaterally Neck No nuchal rigidity Resp normal respiratory effort, normal air movement and clear to auscultation b ilaterally Cardio regular rate, regular rhythm and no gallops GI normal to inspection, nondistended, normoactive bowel sounds, soft to palpation and non-tender Extremity no calf tenderness General Extremity: Negative for edema Skin General Skin Exam: no breakdown Rashes: no rashes Assessment & Plan Assessment/Plan (1) Physical debility: PLAN: Continue therapy. She will be seen on team rounds today and would like to set a discharge date. Will discuss with the team. (2) Subdural hematoma: (3) S/P craniotomy: PLAN: [place] have been removed and the incision is intact with no dehiscence, no erythema and no purulent discharge. No significant swelling around the incision. (4) Acute on chronic blood loss anemia: PLAN: She has chronic blood loss anemia and receives intravenous iron because she does not absorb oral iron. She had 400 mg of intravenous iron sucrose while in the rehab unit and her hemoglobin is improving and is now 11.7. Charges/Coding Visit Charges Inpatient E&M: 90644 Subs Hosp L2
--- NOTE | 2022-04-15 13:01 | CASEMGMT ---
Addendum entered by Melissa Victoria 04/15/22 16:02: Pt requested DME referral be sent to [facility] as a family friend works there. SW agreed and transferred referral to [facility] via fax. Original Note: Social Work IDT met with pt and son, Fred, via conference call for Team meeting. Discussed patient's progress in PT/OT/ST/SN. Explained [employer] insurance with NRD 04/11 and had not received outcome at his time. However, pt inquiring about DC plans. IDT recommending 24/7 supervision at home at least for the first two weeks and son continuing to oversee meds and finances. Pt states sister is retired and can provide 24/7 assistance along with other family and friends. Pt requesting DC 04/17 - IDT agreeable. IDT recommending outpatient therapy. Pt prefers [facility] for PT/OT/ST. Pt needs FWW. JESSICA faxed referral to [facility]. Family to transport. Plan: DC home with 24/7 supervision on 04/17, [facility] PT/OT/ST, FWW Melissa Victoria, TECHNICAL FELLOW PRINTER HELPER
--- NOTE | 2022-04-15 14:06 | CASEMGMT ---
Social Work Living Will and HCPOA completed for pt. Original and copy provided to pt. Copies placed on chart. Melissa Victoria, JAILER/TRAINING OFFICER PRODUCE SHIPPER
--- NOTE | 2022-04-15 16:42 | CASEMGMT ---
Social Work Received notification that insurance denied stay starting 04/12/22 and provided a fax number to appeal for coverage 04/15-04/15. Pt is planned to DC 04/17 and it is not safe for pt to DC prior as DC needs would not be in place. SW provided appeal information to HIM to process. Will await outcome. Melissa Victoria, NURSE EXECUTIVE POULTRY FIELD SERVICE TECHNICIAN
[2022-04-15 19:40] VITALS: BP 102/36; PULSE 60; RESP 16; TEMP 37.1; O2SAT 100
[2022-04-15] MEDS: MELATONIN 10 MG TABLET 5 MG PO (21:10)
[2022-04-15] MEDS: Atorvastatin Calcium 40 MG Tablet PO (21:11)
[2022-04-15] MEDS: oxyCODONE 5 MG Tablet PO (21:12)
[2022-04-15 21:13] VITALS: BP 105/51; PULSE 71
[2022-04-16 05:48] LABS: Absolute Lymphocyte Count 2.31 X10^3/uL (0.83-4.51); Absolute Neutrophil Count 3.8 X10^3/uL (2.0-7.7); Basophil# 0.06 X10^3/uL; Basophil% 0.9 % (0-1); Eosinophil# 0.11 X10^3/uL; Eosinophils% 1.6 % (0-5); Hematocrit 37.5 % (37-47); Hemoglobin 11.5 g/dL (12.0-15.0); Lymphocyte # 2.31 X10^3/ul (0.83-4.51); Lymphocyte % 33.4 % (19-41); Mean Corp Hgb Conc 30.7 g/dL (32-36); Mean Corpuscular Hgb 29.9 pg (27.0-32.0); Mean Corpuscular Volume 97.7 fL (81-99); Mean Platelet Vol. 8.7 fl (6.2-12.0); Monocyte# 0.59 X10^3/uL; Monocyte% 8.5 % (0-10); NRBC Flagged by Analyzer 0 % (0-5); Neutrophil # 3.82 X10^3/uL (2.7-7.7); Neutrophil % 55.2 % (47-70); Platelet Count 360 K/mm3 (150-450); RBC Distribution Width CV 17.9 % (11.6-14.6); RBC Distribution Width SD 63.8 fl (35.1-43.9); Red Blood Count 3.84 M/mm3 (4.2-5.4); White Blood Count 6.9 K/mm3 (4.4-11.0)
[2022-04-16] MEDS: Acetaminophen 500 MG Tablet 1000 MG PO ×3 (05:48→21:10)
[2022-04-16 07:34] VITALS: BP 132/66; PULSE 56; RESP 16; TEMP 37.1; O2SAT 97
[2022-04-16] MEDS: metFORMIN HCl 1,000 MG Tablet 1000 MG PO ×2 (07:41→17:36)
[2022-04-16] MEDS: Folic Acid 1 MG Tablet PO (07:41)
[2022-04-16] MEDS: Cholecalciferol (Vit D3) 125 MCG CAPSULE (5,000 UNITS) PO (07:42)
[2022-04-16] MEDS: Empagliflozin 25 MG Tablet PO (07:42)
[2022-04-16] MEDS: NYSTATIN 500,000 UNIT/5 ML UDC 500000 UNIT PO ×4 (10:07→21:10)
[2022-04-16] MEDS: Tolterodine Tartrate 4 MG CAP.SA PO (10:07)
[2022-04-16] MEDS: Ciprofloxacin 250 MG Tablet PO ×2 (10:07→21:10)
[2022-04-16] MEDS: Senna/Docusate Sodium 1 Tablet 2 TABLET PO ×2 (10:07→21:10)
[2022-04-16] MEDS: Pantoprazole Sodium 40 MG Tablet PO (10:07)
[2022-04-16] MEDS: Polyethylene Glycol 3350 17 GM PACKET PO (10:07)
[2022-04-16] MEDS: Lisinopril 10 MG Tablet PO (10:08)
[2022-04-16] MEDS: Lacosamide 100 MG Tablet PO ×2 (10:11→21:11)
[2022-04-16 21:00] VITALS: BP 126/46; PULSE 61; RESP 18; TEMP 36.7; O2SAT 96
[2022-04-16] MEDS: MELATONIN 10 MG TABLET 5 MG PO (21:10)
[2022-04-16] MEDS: Atorvastatin Calcium 40 MG Tablet PO (21:11)
[2022-04-16] MEDS: oxyCODONE 5 MG Tablet PO (21:11)
--- NOTE | 2022-04-17 03:10 | NURSING ---
REVIEWED AND AGREE WITH ROLLING MILL PLUGGER'S FUNCTIONAL ASSESSMENT AND HANDOFF CHARTING.
[2022-04-17 05:33] LABS: Absolute Lymphocyte Count 2.16 X10^3/uL (0.83-4.51); Absolute Neutrophil Count 3.5 X10^3/uL (2.0-7.7); Basophil# 0.04 X10^3/uL; Basophil% 0.6 % (0-1); Eosinophil# 0.08 X10^3/uL; Eosinophils% 1.3 % (0-5); Hematocrit 40.5 % (37-47); Hemoglobin 12.1 g/dL (12.0-15.0); Lymphocyte # 2.16 X10^3/ul (0.83-4.51); Lymphocyte % 34.1 % (19-41); Mean Corp Hgb Conc 29.9 g/dL (32-36); Mean Corpuscular Volume 100.5 fL (81-99); Mean Platelet Vol. 9.9 fl (6.2-12.0); Monocyte% 7.9 % (0-10); NRBC Flagged by Analyzer 0 % (0-5); Neutrophil # 3.53 X10^3/uL (2.7-7.7); Neutrophil % 55.8 % (47-70); POSITIVE COUNT YES; POSITIVE MORPHOLOGY YES; Platelet Count 274 K/mm3 (150-450); RBC Distribution Width CV 18.4 % (11.6-14.6); Red Blood Count 4.03 M/mm3 (4.2-5.4); White Blood Count 6.3 K/mm3 (4.4-11.0)
[2022-04-17 05:34] LABS: Differential Indicated SCAN CRITERIA MET
[2022-04-17] MEDS: Acetaminophen 500 MG Tablet 1000 MG PO (06:12)
[2022-04-17 06:36] LABS: Anisocytosis 1+; Differential Comment SCANNED; Macrocytosis 1+; Platelet Estimate ADEQUATE (ADEQ); Platelet Morphology CLUMPED
[2022-04-17 07:38] VITALS: BP 118/50; PULSE 52; RESP 18; TEMP 35.6; O2SAT 94
[2022-04-17] MEDS: Tolterodine Tartrate 4 MG CAP.SA PO (08:48)
[2022-04-17] MEDS: Lacosamide 100 MG Tablet PO (08:48)
[2022-04-17] MEDS: Senna/Docusate Sodium 1 Tablet 2 TABLET PO (08:48)
[2022-04-17] MEDS: Lisinopril 10 MG Tablet PO (08:48)
[2022-04-17] MEDS: Cholecalciferol (Vit D3) 125 MCG CAPSULE (5,000 UNITS) PO (08:48)
[2022-04-17] MEDS: Ciprofloxacin 250 MG Tablet PO (08:48)
[2022-04-17] MEDS: metFORMIN HCl 1,000 MG Tablet 1000 MG PO (08:48)
[2022-04-17] MEDS: Pantoprazole Sodium 40 MG Tablet PO (08:48)
[2022-04-17] MEDS: Folic Acid 1 MG Tablet PO (08:49)
[2022-04-17] MEDS: NYSTATIN 500,000 UNIT/5 ML UDC 500000 UNIT PO (08:49)
[2022-04-17] MEDS: Polyethylene Glycol 3350 17 GM PACKET PO (08:49)
[2022-04-17] MEDS: Empagliflozin 25 MG Tablet PO (08:49)
--- NOTE | 2022-04-17 10:02 | DCINST_ITS ---
Discharge Instructions Diet Discharge Diet: - (1800 calorie/day, low fat, low salt) Activity Discharge Activity: May Not Drive, May Shower (with supervision initially) and - (Do not get in a pool by yourself. Have someone with you if you go for a walk. Do not climb any ladders. Wear your helmet if you are outside for the first 2 weeks. ) Weight Bearing Status: Full weight bearing Dressing / Incision Call your doctor if your incision/area has: Continuous Slow Oozing, Sudden Increased Bleeding, Increased Pain/ Swelling, Increased Redness, Foul Smelling Discharge and Swelling at the incision site Call your doctor if you observe: Fever of 101 or Higher, Shortness of breath, Dizziness, Fainting spells, Swelling in the ankles, Chest pain, Increased palpitations (irregular heartbeat), Calf discomfort and Uncontrolled pain Suture Line Care: Avoid Pulling/Pushing and Avoid Pinching/Bending Change Dressing in: leave in place till F/U (you do not need a dressing, you can leave the incision open to air.......it is healing and there is no drainage. If the helmet rubs on the incision you can apply a dry dressing. ) Cleanse incision/area with: Soap & Water (Pat dry immediately after getting out of the shower. ) Follow Up Care Test Results: Test results from this visit will be discussed in further detail at your follow- up appointment, if applicable. Pending Tests Upon Discharge: none Discharge Plan Admission Admit Date/Time: 04/05/22 16:25 Primary Reason for Your Visit: Debility due to SDH, TBI and recent craniotomy Attending Provider: Anahi Latif Primary Care Provider: Ludwin Christianson Instructions Patient Instructions: Preventing Traumatic Brain Injury, Alcoholism: Myths and Facts, Alcoholism Resources, Alcoholism: Getting Help, Why Do You Smoke?, TBI, What Is a Subdural Hematoma? Additional Instructions / Restrictions: 1. I am concerned about you. You have had 2 devastating head injuries in less than 6 months. With the head injuries comes traumatic brain injuries and the damage can be long lasting and diminish your ability to think logically, process information and take care of yourself. The first fall was related to alcohol consumption. Your blood alcohol level in the ER was 177 and the limit for being legally drunk is 80. You have been an alcoholic in the past and even attended AA. Most people who have been alcoholic can not have just one drink because once you get the taste for it again it is very difficult to stop at one. When you have any kind of addiction you should not put yourself in situations where other people are using........like working in a bar or hanging out with friends who are drinking. Addictions to alcohol, opiates, sex, gambling are very common these days but, there are a lot of resources to get help..... and [facility] are 2 good resources. You have been very patricia and you will be able to go back to independent living.......don't push your luck. 2. You have not smoked since 03/28/22. You have already been through the physical withdrawal. Why not stop. you have had vascular problems including heart disease and disease in the arteries of the R leg......Smoking is a HUGE risk factor for vascular disease. It would really improve your health and decrease your risk for Heart attacks, strokes, vascular disease in the legs that can lead to amputation, etc. I am going to give you a prescription for a nicotine patch to go home with. 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 3. Your are only 66.......in this day and age that is not old BUT, you need to take better care of yourself. Don't drink alcohol, don't smoke, visit your PCP regularly for health maintenance, take your medications as prescribed and get some exercise everyday. Walking is great exercise.....it helps the heart and lungs and helps prevent osteoporosis. If you are compliant with this your life expectancy and quality of life will improve. 4. You have worked hard in therapy and you have done great. Someone should be with you 10/03 for the next 2 weeks until you are adjusted to being home again. Get some exercise everyday but, don't overdue. 5. You are on a medication called Lacosamide (Vimpat) to prevent seizures. Blood is very irritating to the brain and it is not uncommon to have seizures after a brain bleed or a craniotomy. Dr. Granados will tell you when you can stop the medication. 6. You had a urinary tract infection while in rehab and you will need to take 2 more days of the antibiotic which is Ciprofloxacin. 7. If you have any questions after you leave rehab please do not hesitate to call me. If you need help to arrange smoking cessation or get counselling for ongoing difficulties with alcohol please call me.....I can help put you in c ontact with people who can help you. I am not sure but, I think the smoking cessation program may be able to get you free nicotine patches. Please take better care of yourself. Office: [phone] CELL: [phone]. Discharge Orders/Prescriptions Prescriptions: New nicotine 21 mg/24 hr Patch 24 Hour 21 mg transdermal Q24H 14 Days Qty: 14 0RF ciprofloxacin HCl 250 mg Tablet 250 mg PO BID Qty: 5 0RF Rx Instructions: Take 1 tab 2 times a day until gone for UTI oxycodone 5 mg Tablet 5 mg PO Q6H PRN PRN (Reason: Pain Score 6-10) 7 Days Qty: 20 0RF pantoprazole 40 mg Tablet,Delayed Release (Dr/Ec) 40 mg PO DAILY Qty: 30 0RF nicotine [Nicoderm CQ] 14 mg/24 hr patch 24 hour 1 patch transdermal DAILY Qty: 14 0RF Continued metformin 1,000 mg tablet 1,000 mg PO BID oxybutynin chloride 15 mg tablet extended release 24hr 15 mg PO DAILY Label Comments: TAKE 1 TABLET BY MOUTH DAILY empagliflozin 25 mg tablet 25 mg PO DAILY@0800 acetaminophen 500 mg Tablet 1,000 mg PO Q6H PRN (Reason: Pain) melatonin 5 mg Tablet 5 mg PO QHS cholecalciferol (vitamin D3) [Vitamin D3] 125 mcg (5,000 unit) Tablet 125 mcg PO DAILY atorvastatin 40 mg tablet 40 mg PO DAILY@2200 lisinopril 10 mg Tablet 10 mg PO DAILY Qty: 30 0RF polyethylene glycol 3350 17 gram/dose powder 17 g PO DAILY Qty: 510 0RF lacosamide 100 mg Tablet 100 mg PO BID Qty: 60 0RF Discontinued nicotine 21 mg/24 hr Patch 24 Hour 1 patch TRANSDERMAL Q24H folic acid 1 mg Tablet 1 mg PO DAILY Referrals / Follow Up: Bryce Granados [Other] - 04/18/22 1:30 pm Ludwin Christianson MD [Primary Care Provider] - 04/25/22 11:30 am Disposition Disposition (needs filled in before D/C Order can be placed): Home, Self Care
--- NOTE | 2022-04-17 11:47 | PCM.DC.SUM ---
Providers Date of Admission: 04/05/22 Date of Discharge: 04/17/22 Primary Care Physician: Dr. Ludwin Christianson MD Reason For Visit: SDH/craniotomy Diagnosis Discharge Diagnosis (1) Physical debility: Status: Acute Code(s): R53.81 - Other malaise Plan: Will have OP PT/OT/ST at [facility]. (2) Subdural hematoma: Status: Acute Code(s): S06.5X9A - Traumatic subdural hemorrhage with loss of consciousness of unspecified duration, initial encounter Plan: Source of trauma is unknown - she can not remember. (3) S/P craniotomy: Status: Acute Code(s): Z98.890 - Other specified postprocedural states Plan: 03/28/[address] Granados at [facility] (4) Acute on chronic blood loss anemia: Status: Chronic Code(s): D62 - Acute posthemorrhagic anemia Plan: She has chronic iron deficiency anemia and follows with Dr. Waldrop for Iron infusions. She had 400 mg of IV iron sucrose while in rehab. HGB is stable at DC at 11. (5) Nicotine dependence: Status: Chronic Code(s): F17.200 - Nicotine dependence, unspecified, uncomplicated Plan: Smoking cessation counseling was given during her admission to rehab and she was placed on a nicotine patch which she states has helped her cravings. (6) Type 2 diabetes mellitus: Status: Acute Code(s): E11.9 - Type 2 diabetes mellitus without complications Plan: Well-controlled on current medications. Medications at Discharge Home Medications metformin 1,000 mg tablet 1,000 mg PO BID dm 09/29/20 empagliflozin 25 mg tablet 25 mg PO DAILY@0800 dm 10/01/21 oxybutynin chloride 15 mg tablet,extended release 24 hr 15 mg PO DAILY bladder 10/01/21 acetaminophen 500 mg tablet 1,000 mg PO Q6H PRN Pain 04/05/22 atorvastatin 40 mg tablet 40 mg PO DAILY@2200 cholesterol 04/05/22 cholecalciferol (vitamin D3) 125 mcg (5,000 unit) tablet (Vitamin D3) 125 mcg PO DAILY supp 04/05/22 melatonin 5 mg tablet 5 mg PO QHS sleep 04/05/22 ciprofloxacin HCl 250 mg tablet 250 mg PO BID #5 tabs 04/17/22 lacosamide 100 mg tablet 100 mg PO BID sewizure #60 tabs 04/17/22 lisinopril 10 mg tablet 10 mg PO DAILY bp #30 tabs 04/17/22 nicotine 14 mg/24 hr daily transdermal patch (Nicoderm CQ) 1 patch transdermal DAILY #14 ea 04/17/22 nicotine 21 mg/24 hr daily transdermal patch 21 mg transdermal Q24H 14 days #14 ea 04/17/22 oxycodone 5 mg tablet 5 mg PO Q6H PRN PRN Pain Score 6-10 7 days #20 tabs 04/17/22 pantoprazole 40 mg tablet,delayed release 40 mg PO DAILY #30 tabs 04/17/22 polyethylene glycol 3350 17 gram/dose oral powder 17 g PO DAILY #510 grams 04/17/22 Hospital Course Operations - (Right side craniotomy on 03/28/[address] Granados [facility].) Procedures None Summary of Care Provided Minutes Spent on Discharge: 40 Hospital Course: KAELYN DRUMMOND, is a 66 YO F with a PMH of PVD with hx of a LLE stent, anxiety, hx of alcoholism, colon polyps, chronic back pain, diverticulosis, hypertension, history of gastritis, hyperlipidemia, marijuana use, coronary artery disease with history of stent placement in L circ on 10/10/2015, tobacco dependence, history of uterine cancer, left upper lobe pulmonary nodule, iron deficiency anemia (follows with Dr. Waldrop, obesity, rheumatoid arthritis, type Diabetes mellitus type II and? 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 Noncontrast CT brain in the emergency room showed a small to moderate size acute right subdural hematoma with a midline shift from right to left of 0.9 cm.? She denied any recent trauma to the head.? She was transferred to [facility] for further evaluation.? She was taken to the OR on 03/28/22 for evacuation of the hematoma by Dr. Granados. Post op course was complicated by Delirium and dysphagia.? She was seen by ST.? She had expressive aphasia, dysarthria, receptive aphasia and cognitive deficits in addition to dysphagia.? She was on Minced and moist textures and thin liquids with 1:1 supervision at the time of DC from [facility].? ST/PT/OT recommended inpt acute rehab and she was transferred to [facility] acute inpt rehab on 04/04/22 for 3 hours of therapy daily to restore function at or near her prior level of function.? Significant lab at presentation to rehab included a hemoglobin of 10.8, and an elevated BUN/creatinine ratio at 30.5 and a low serum iron of 42 with an iron saturation of 15.6. Hemoglobin A1c was 5.3 which makes me wonder if she is having hypoglycemia at times as an OP.......this may explain why she does not remember any trauma and she may have fallen if hypoglycemic. she received 400 mg of iron sucrose while in rehab and the HGB at DC is up to 12.1. She now has 1+ macrocytosis and I suspect this is due to increased reticulocytes. Kaelyn was seen by PT/OT and ST while in rehab. She was quite motivated to get better and she worked hard. Prior to DC she was able to ascend/descend 5 steps of various heights using 2 handrails and a curb step with a WW at [facility] for safety. She was able to do the TUG(turn up and go test) in 12.16 sec with a WW which is outstanding. She had ambulated 500 feet at light contact-guard assist on unlevel surfaces and at standby assist/contact-guard assist on level ground. She is supervision/set up for eating and grooming. She is able to complete bathing at standby assist and is independent with UB dressing and only requires min assist for LB dressing.....mostly because with the craniotomy we do not want her bending over to get her socks, shoes and pants on. She is supervision for toileting and toilet transfer. She is contact-guard assist for tub/shower transfer, at least for the first week. she has been working with ST on cognition and is still having some difficulty with executive function, check writing, bill paying and med management. \ Kaelyn is going to follow up at [facility] as an OP for PT/OT and ST. She will have someone at her house 10/03 for the first 2 weeks and will have someone double check her on managing meds, filling pill boxes and paying bills. She was instructed not to drive until Dr. Granados releases her. She also is not to return to work until is released by Dr. Granados. Smoking cessation counselling was given on rehab and she was given a RX for Nicotine patches at [facility]. She has an appt to follow up with Dr. Granados scheduled and will have a follow up CTB on the day of that visit at [facility]. She was discharged home on 04/17/22. she will follow up with Dr. Christianson within the next 7-14 days. Weight / BMI Weight Weight: 148 lb 9.465 oz Body Mass Index (BMI) 24.5 ABG / Lab / Microbiology Data Result Diagrams: 04/17/22 05:25 04/15/22 05:32 Laboratory: Laboratory Results - last 24 hr 04/17/22 05:25: WBC 6.3, RBC 4.03 L, Hgb 12.1, Hct 40.5, MCV 100.5 H, MCH 30.0, MCHC 29.9 L, RDW Std Deviation 69.0 H, RDW Coeff of Martha 18.4 H, Plt Count 274, MPV 9.9, Immature Gran % (Auto) 0.300, Neut % (Auto) 55.8, Lymph % (Auto) 34.1, [place] % (Auto) 7.9, Eos % (Auto) 1.3, Baso % (Auto) 0.6, Absolute Neuts (auto) 3.5, Absolute Lymphs (auto) 2.16, Nucleated RBC % 0, Differential Comment SCANNED, Platelet Estimate ADEQUATE, Plt Morphology Comment CLUMPED, Anisocytosis 1+, Macrocytosis 1+ Microbiology: Microbiology 04/09/22 23:53 Urine, Catheterized Urine Culture - Final Pseudomonas aeroginosa D/C Instructions Discharge Diet: - (1800 calorie/day, low fat, low salt) Weight Bearing Status: Full weight bearing Call your doctor if your incision/area has: Continuous Slow Oozing, Sudden Increased Bleeding, Increased Pain/ Swelling, Increased Redness, Foul Smelling Discharge and Swelling at the incision site Call your doctor if you observe: Fever of 101 or Higher, Shortness of breath, Dizziness, Fainting spells, Swelling in the ankles, Chest pain, Increased palpitations (irregular heartbeat), Calf discomfort and Uncontrolled pain Suture Line Care: Avoid Pulling/Pushing and Avoid Pinching/Bending Cleanse incision/area with: Soap & Water (Pat dry immediately after getting out of the shower. ) Pending Tests Upon Discharge: none Meaningful Use Info Meaningful Use Diagnoses (Choose all that apply): None applicable Discharge Plan Admission Admit Date/Time: 04/05/22 16:25 Primary Reason for Your Visit: Debility due to SDH, TBI and recent craniotomy Attending Provider: Anahi Latif Primary Care Provider: Ludwin Christianson Instructions Patient Instructions: Preventing Traumatic Brain Injury, Alcoholism: Myths and Facts, Alcoholism Resources, Alcoholism: Getting Help, Why Do You Smoke?, TBI, What Is a Subdural Hematoma? Additional Instructions / Restrictions: 1. I am concerned about you. You have had 2 devastating head injuries in less than 6 months. With the head injuries comes traumatic brain injuries and the damage can be long lasting and diminish your ability to think logically, process information and take care of yourself. The first fall was related to alcohol consumption. Your blood alcohol level in the ER was 177 and the limit for being legally drunk is 80. You have been an alcoholic in the past and even attended AA. Most people who have been alcoholic can not have just one drink because once you get the taste for it again it is very difficult to stop at one. When you have any kind of addiction you should not put yourself in situations where other people are using........like working in a bar or hanging out with friends who are drinking. Addictions to alcohol, opiates, sex, gambling are very common these days but, there are a lot of resources to get help.....AA and [facility] are 2 good resources. You have been very patricia and you will be able to go back to independent living.......don't push your luck. 2. You have not smoked since 03/28/22. You have already been through the physical withdrawal. Why not stop. you have had vascular problems including heart disease and disease in the arteries of the R leg......Smoking is a HUGE risk factor for vascular disease. It would really improve your health and decrease your risk for Heart attacks, strokes, vascular disease in the legs that can lead to amputation, etc. I am going to give you a prescription for a nicotine patch to go home with. If you find yourself having cravings to smoke again you can call the hospital at [phone] and ask to be connected to the smoking cessation director of content and programming. 3. Your are only 66.......in this day and age that is not old BUT, you need to take better care of yourself. Don't drink alcohol, don't smoke, visit your PCP regularly for health maintenance, take your medications as prescribed and get some exercise everyday. Walking is great exercise.....it helps the heart and lungs and helps prevent osteoporosis. If you are compliant with this your life expectancy and quality of life will improve. 4. You have worked hard in therapy and you have done great. Someone should be with you 10/03 for the next 2 weeks until you are adjusted to being home again. Get some exercise everyday but, don't overdue. 5. You are on a medication called Lacosamide (Vimpat) to prevent seizures. Blood is very irritating to the brain and it is not uncommon to have seizures after a brain bleed or a craniotomy. Dr. Granados will tell you when you can stop the medication. 6. You had a urinary tract infection while in rehab and you will need to take 2 more days of the antibiotic which is Ciprofloxacin. 7. If you have any questions after you leave rehab please do not hesitate to call me. If you need help to arrange smoking cessation or get counselling for ongoing difficulties with alcohol please call me.....I can help put you in contact with people who can help you. I am not sure but, I think the smoking cessation program may be able to get you free nicotine patches. Please take better care of yourself. Office: [phone] CELL: [phone]. Discharge Orders/Prescriptions Prescriptions: New nicotine 21 mg/24 hr Patch 24 Hour 21 mg transdermal Q24H 14 Days Qty: 14 0RF ciprofloxacin HCl 250 mg Tablet 250 mg PO BID Qty: 5 0RF Rx Instructions: Take 1 tab 2 times a day until gone for UTI oxycodone 5 mg Tablet 5 mg PO Q6H PRN PRN (Reason: Pain Score 6-10) 7 Days Qty: 20 0RF pantoprazole 40 mg Tablet,Delayed Release (Dr/Ec) 40 mg PO DAILY Qty: 30 0RF nicotine [Nicoderm CQ] 14 mg/24 hr patch 24 hour 1 patch transdermal DAILY Qty: 14 0RF Continued metformin 1,000 mg tablet 1,000 mg PO BID oxybutynin chloride 15 mg tablet extended release 24hr 15 mg PO DAILY Label Comments: TAKE 1 TABLET BY MOUTH DAILY empagliflozin 25 mg tablet 25 mg PO DAILY@0800 acetaminophen 500 mg Tablet 1,000 mg PO Q6H PRN (Reason: Pain) melatonin 5 mg Tablet 5 mg PO QHS cholecalciferol (vitamin D3) [Vitamin D3] 125 mcg (5,000 unit) Tablet 125 mcg PO DAILY atorvastatin 40 mg tablet 40 mg PO DAILY@2200 lisinopril 10 mg Tablet 10 mg PO DAILY Qty: 30 0RF polyethylene glycol 3350 17 gram/dose powder 17 g PO DAILY Qty: 510 0RF lacosamide 100 mg Tablet 100 mg PO BID Qty: 60 0RF Discontinued nicotine 21 mg/24 hr Patch 24 Hour 1 patch TRANSDERMAL Q24H folic acid 1 mg Tablet 1 mg PO DAILY Referrals / Follow Up: Bryce Granados [Other] - 04/18/22 1:30 pm Ludwin Christianson MD [Primary Care Provider] - 04/25/22 11:30 am Disposition Disposition (needs filled in before D/C Order can be placed): Home, Self Care Charges/Coding Visit Charges Inpatient E&M: [id number] Disch Hosp
[2022-04-17 13:14] VITALS: BP 118/50; PULSE 52; RESP 18; TEMP 35.5; O2SAT 94
--- NOTE | 2022-04-17 13:16 | NURSING ---
discharged home with family. discharge instruction, medications and appointments reviewed with pt and family. denies questions or concerns
== END 2022-04-17 13:17 | disposition home or self-care (01) | DRG 949 ==
PROVIDERS: Admitting Provider Internal Medicine; PCP Family Medicine; Visit Provider Internal Medicine
DX: S06.5X0D Traumatic subdural hemorrhage without loss of consciousness, subsequent encounter (principal); D62 Acute posthemorrhagic anemia; R47.01 Aphasia; N30.00 Acute cystitis without hematuria; E11.51 Type 2 diabetes mellitus with diabetic peripheral angiopathy without gangrene; M06.9 Rheumatoid arthritis, unspecified; F10.21 Alcohol dependence, in remission; E78.5 Hyperlipidemia, unspecified; F17.200 Nicotine dependence, unspecified, uncomplicated; I10 Essential (primary) hypertension; I25.10 Atherosclerotic heart disease of native coronary artery without angina pectoris; F09 Unspecified mental disorder due to known physiological condition; Z79.84 Long term (current) use of oral hypoglycemic drugs; Z79.899 Other long term (current) drug therapy; G89.29 Other chronic pain; R47.1 Dysarthria and anarthria; R13.10 Dysphagia, unspecified
CPT/HCPCS: 36415; 74018; 80048; 80053; 81001; 82728; 82962; 83036; 83540; 83550; 83735; 84100; 85025; 85027; 87077; 87086; 87088; 87184; 87186; 92507; 92523; 92526; 92610; 97110; 97112; 97116; 97129; 97130; 97161; 97166; 97530; 97535; 97802; J7050; A4216; J2916

== ENCOUNTER 2022-04-23 10:16 | Emergency (ER) | payer MEDICARE, SELFPAY ==
[2022-04-23 10:19] VITALS: BP 163/76; PULSE 64; RESP 18; TEMP 36.1; O2SAT 100; BMI 26.5
--- NOTE | 2022-04-23 10:43 | EKG12_ITS ---
Test Reason : GEN ILLNESS Blood Pressure : / mmHG Vent. Rate : 065 BPM Atrial Rate : 065 BPM P-R Int : 136 ms QRS Dur : 076 ms QT Int : 416 ms P-R-T Axes : 025 049 036 degrees QTc Int : 432 ms Sinus rhythm with marked sinus arrhythmia Low voltage QRS Borderline ECG Confirmed by CARSON PALOMO, HERMELINDO ([id number]), field map editor GENE BEE ([id number]) on 04/24/2022 9:30:41 AM Referred By: JEWEL Confirmed By:HERMELINDO BYRD MD
--- NOTE | 2022-04-23 10:44 | EX.ED.DYSGE1 ---
HPI History of Present Illness Chief Complaint: General Illness [facility] Medical History (Updated 04/23/22 @ 13:[address] Yan Hall MD) Abnormal gastrointestinal PET scan Anemia Anxiety Atherosclerosis of coronary artery of [place] without angina pectoris Back pain Black tarry stools Bladder disease Cancer Cardiology follow-up encounter Claudication Dietary restriction Essential (primary) hypertension Fatigue History of echocardiogram History of edema History of stress test Hoarseness Hyperlipidemia Iron deficiency anemia Iron deficiency anemia due to chronic blood loss Leg cramps Lung mass Marijuana use Nicotine dependence Obesity Peripheral vascular occlusive disease Rectal bleeding Rheumatoid arthritis Smoker Subdural hematoma Subdural hemorrhage Type 2 diabetes mellitus Wears dentures Wears glasses Home Medications metformin 1,000 mg tablet 1,000 mg PO BID dm 09/29/20 [History Last Taken Unknown] empagliflozin 25 mg tablet 25 mg PO DAILY@0800 dm 10/01/21 [History Last Taken Unknown] oxybutynin chloride 15 mg tablet,extended release 24 hr 15 mg PO DAILY bladder 10/01/21 [History Last Taken Unknown] acetaminophen 500 mg tablet 1,000 mg PO Q6H PRN Pain 04/05/22 [History Last Taken Unknown] atorvastatin 40 mg tablet 40 mg PO DAILY@2200 cholesterol 04/05/22 [History Last Taken Unknown] cholecalciferol (vitamin D3) 125 mcg (5,000 unit) tablet (Vitamin D3) 125 mcg PO DAILY supp 04/05/22 [History Last Taken Unknown] melatonin 5 mg tablet 5 mg PO QHS sleep 04/05/22 [History Last Taken Unknown] ciprofloxacin HCl 250 mg tablet 250 mg PO BID #5 tabs 04/17/22 [Rx Last Taken Unknown] lacosamide 100 mg tablet 100 mg PO BID sewizure #60 tabs 04/17/22 [Rx Last Taken Unknown] lisinopril 10 mg tablet 10 mg PO DAILY bp #30 tabs 04/17/22 [Rx Last Taken Unknown] nicotine 14 mg/24 hr daily transdermal patch (Nicoderm CQ) 1 patch transdermal DAILY #14 ea 04/17/22 [Rx Last Taken Unknown] nicotine 21 mg/24 hr daily transdermal patch 21 mg transdermal Q24H 14 days #14 ea 04/17/22 [Rx Last Taken Unknown] oxycodone 5 mg tablet 5 mg PO Q6H PRN PRN Pain Score 6-10 7 days #20 tabs 04/17/22 [Rx Last Taken Unknown] pantoprazole 40 mg tablet,delayed release 40 mg PO DAILY #30 tabs 04/17/22 [Rx Last Taken Unknown] polyethylene glycol 3350 17 gram/dose oral powder 17 g PO DAILY #510 grams 04/17/22 [Rx Last Taken Unknown] Allergy/AdvReac Type Severity Reaction Status Date / Time acetaminophen [From Percocet] Allergy Intermediate Itching Verified 04/23/22 10:23 oxycodone [From Percocet] Allergy Intermediate Itching Verified 04/23/22 10:23 Family History Sister Diabetes Breast cancer Brother Cancer throat Hypertension Surgical History History of angioplasty of peripheral vessel History of cholecystectomy History of coronary artery stent placement (10/10/15) History of esophagogastroduodenoscopy (EGD) History of hysterectomy History of left heart catheterization (10/09/15) Hx of colonoscopy Hx of heart artery stent S/P craniotomy S/P craniotomy Social History household members: none and other details: She has 2 sons who live locally and can help her and also has 2 sisters housing: apartment number of children: 2 current occupational status: employed 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 mary beth/sikh: Caodaism seatbelt use: always do you feel safe at home: Yes EXAM Physical Exam Const Vital Signs: 04/23/22 10:19 04/23/22 11:05 04/23/22 12:21 Temperature 96.9 F L Temperature Source Temporal Pulse Rate 64 Pulse Rate [Lying] 62 Pulse Rate [Sitting (for 1 minute prior to obtaining)] 55 L Pulse Rate [Standing (for 1 minute prior to obtaining)] 59 L Respiratory Rate 18 Respiratory Pattern Normal Blood Pressure 163/76 H Blood Pressure [Lying] 137/58 H Blood Pressure [Sitting (for 1 minute prior to obtaining)] 135/56 H Blood Pressure [Standing (for 1 minute prior to obtaining)] 117/49 L Blood Pressure Mean 105 Blood Pressure Mean [Lying] 84 Blood Pressure Mean [Sitting (for 1 minute prior to obtaining)] 82 Blood Pressure Mean [Standing (for 1 minute prior to obtaining)] 71 Pulse Ox 100 Oxygen Delivery Method Room Air MDM MDM MDM Narrative Medical decision making narrative: Labs are unremarkable, I repeated her brain CT to rule out causes of increased intracranial pressure which clinically she does not appear to have, it shows resolving pathology and no evidence of intracranial acute pathology. She is not hypertensive on reevaluation with blood pressures in the 110's, and after IV fluids orthostatics are negative and she feels fine. It is true that her heart rate is low and in the 50s, the irregularity appears to be due to occasional atrial ectopy, I see no evidence of an electrical block and I have reviewed her medication list, she is on no AV abel blockers to pause or discontinue. Stable for discharge home close a patient follow-up she has an appointment with her doctor in 2 days. Lab Data Attestation: I reviewed the patient's lab results. Labs: Laboratory Results - last 24 hr 04/23/22 04/23/22 10:50 10:50 WBC 5.0 RBC 4.42 Hgb 13.2 Hct 43.2 MCV 97.7 MCH 29.9 MCHC 30.6 L RDW Std Deviation 67.4 H RDW Coeff of Martha 19.0 H Plt Count 252 MPV 9.1 Immature Gran % (Auto) 0.400 Neut % (Auto) 59.0 Lymph % (Auto) 29.3 Frio % (Auto) 9.5 Eos % (Auto) 1.6 Baso % (Auto) 0.2 Absolute Neuts (auto) 2.9 Absolute Lymphs (auto) 1.45 Nucleated RBC % 0 Anisocytosis 1+ Sodium 143 Potassium 3.9 Chloride 110 H Carbon Dioxide 27.0 Anion Gap 6 BUN 15 Creatinine 0.53 L Estim Creat Clear Calc 43.18 Est GFR (MDRD) Af Amer 147 Est GFR (MDRD) Non-Af 121 BUN/Creatinine Ratio 28.1 H Glucose 103 Calcium 9.3 Radiography Diagnostic Testing: Clinical Impression(s) from Imaging Studies Brain CT 04/23/22 11:10 IMPRESSION: Resolving small right subdural hygroma. There is no evidence of new intracranial hemorrhage. Electronically Signed: Klever Patel MD at 11:40 EDT Reading Location ID and State: [facility] / [place] Tel , Service support , Rhythm Strip Rhythm Strip: Sinus Rhythm Rate: 55 Ectopy: PAC(s) EKG Initial EKG: Attestation: I personally reviewed and interpreted this EKG as follows: Interpretation: Sinus Rhythm and No Acute Injury Pattern Comments: PACs. Otherwise normal. No signs of AV block. Discharge Plan Triage Chief Complaint: General Illness Other Complaint: Hypotension ED Provider: Yan Hall Dx/Rx/DC Orders Clinical Impression: Lightheadedness, Atrial ectopy, Generalized headaches, History of subdural hematoma Instructions: PVCs Prescriptions: No Action metformin 1,000 mg tablet 1,000 mg PO BID oxybutynin chloride 15 mg tablet extended release 24hr 15 mg PO DAILY Label Comments: TAKE 1 TABLET BY MOUTH DAILY empagliflozin 25 mg tablet 25 mg PO DAILY@0800 acetaminophen 500 mg Tablet 1,000 mg PO Q6H PRN (Reason: Pain) melatonin 5 mg Tablet 5 mg PO QHS cholecalciferol (vitamin D3) [Vitamin D3] 125 mcg (5,000 unit) Tablet 125 mcg PO DAILY atorvastatin 40 mg tablet 40 mg PO DAILY@2200 nicotine 21 mg/24 hr Patch 24 Hour 21 mg transdermal Q24H 14 Days Qty: 14 0RF ciprofloxacin HCl 250 mg Tablet 250 mg PO BID Qty: 5 0RF Rx Instructions: Take 1 tab 2 times a day until gone for UTI oxycodone 5 mg Tablet 5 mg PO Q6H PRN PRN (Reason: Pain Score 6-10) 7 Days Qty: 20 0RF pantoprazole 40 mg Tablet,Delayed Release (Dr/Ec) 40 mg PO DAILY Qty: 30 0RF lisinopril 10 mg Tablet 10 mg PO DAILY Qty: 30 0RF polyethylene glycol 3350 17 gram/dose powder 17 g PO DAILY Qty: 510 0RF lacosamide 100 mg Tablet 100 mg PO BID Qty: 60 0RF nicotine [Nicoderm CQ] 14 mg/24 hr patch 24 hour 1 patch transdermal DAILY Qty: 14 0RF Primary Care Provider: Ludwin Christianson Referrals: Ludwin Christianson MD [Primary Care Provider] - Keep Anders appointment Disposition Disposition: Home, Self Care
[2022-04-23 11:00] LABS: Absolute Lymphocyte Count 1.45 X10^3/uL (0.83-4.51); Absolute Neutrophil Count 2.9 X10^3/uL (2.0-7.7); Basophil# 0.01 X10^3/uL; Basophil% 0.2 % (0-1); Eosinophil# 0.08 X10^3/uL; Eosinophils% 1.6 % (0-5); Hematocrit 43.2 % (37-47); Hemoglobin 13.2 g/dL (12.0-15.0); Lymphocyte # 1.45 X10^3/ul (0.83-4.51); Lymphocyte % 29.3 % (19-41); Mean Corp Hgb Conc 30.6 g/dL (32-36); Mean Corpuscular Hgb 29.9 pg (27.0-32.0); Mean Corpuscular Volume 97.7 fL (81-99); Mean Platelet Vol. 9.1 fl (6.2-12.0); Monocyte# 0.47 X10^3/uL; Monocyte% 9.5 % (0-10); NRBC Flagged by Analyzer 0 % (0-5); Neutrophil # 2.92 X10^3/uL (2.7-7.7); POSITIVE MORPHOLOGY YES; Platelet Count 252 K/mm3 (150-450); RBC Distribution Width SD 67.4 fl (35.1-43.9); Red Blood Count 4.42 M/mm3 (4.2-5.4)
[2022-04-23] MEDS: 0.9% Normal Saline 1,000 ML 999 ML IV (11:03)
[2022-04-23 11:06] LABS: Differential Indicated SCAN CRITERIA MET
--- NOTE | 2022-04-23 11:10 | CT_ITS ---
STUDY: CT BRAIN WITHOUT CONTRAST REASON FOR EXAM: Female, 66 years old. headache, recent SDH craniectomy/evac RADIATION DOSAGE (If Supplied By Facility): CTDIvol = ( 44.99 ) mGy, DLP = ( 812.98 ) mGycm TECHNIQUE: Transaxial CT imaging of the brain was performed without administration of intravenous contrast material. Individualized dose optimization techniques were used for this CT. COMPARISON: No relevant priors. FINDINGS: Normal soft tissue structures. Postsurgical changes in the bilateral frontal, parietal and temporal bones. Normal size ventricles and extra-axial spaces for the patient''s age. Normal white matter tracts of the cerebral hemispheres. Normal basal ganglia and thalami. Normal brainstem. Normal cerebellum. Resolving small right subdural hygroma. There is no evidence of new intracranial hemorrhage. Small encephalomalacia in the left temporal lobe likely due to an old traumatic lesion. Normal visualized paranasal sinuses. CT/Brain/Head without Contrast IMPRESSION: Resolving small right subdural hygroma. There is no evidence of new intracranial hemorrhage. Electronically Signed: Klever Patel MD at 11:40 EDT ,
[2022-04-23 11:13] LABS: Anion Gap 6 (5-15); BUN 15 mg/dL (7-18); BUN/Creat Ratio 28.1 RATIO (10-20); Calcium,Total 9.3 mg/dL (8.5-10.1); Chloride 110 mmol/L (98-107); Creatinine, Serum 0.53 mg/dL (0.55-1.02); EST Glomerular Filtration Rate 121 mL/min (>60); Est Glom Filt Rate - Afr Amer 147 mL/min (>60); Estimated Creatinine Clearance 43.18 ml/min; Glucose 103 mg/dL (74-106); Potassium 3.9 mmol/L (3.5-5.1); Sodium Level 143 mmol/L (136-145)
[2022-04-23 12:01] LABS: Anisocytosis 1+
[2022-04-23 12:21] VITALS: BP 117/49; BP 135/56; BP 137/58; PULSE 55; PULSE 59; PULSE 62
== END 2022-04-23 13:58 | disposition home or self-care (01) ==
PROVIDERS: Emergency Provider Emergency Medicine; PCP Family Medicine; Visit Provider Emergency Medicine
DX: I95.9 Hypotension, unspecified (principal); E11.9 Type 2 diabetes mellitus without complications; I25.10 Atherosclerotic heart disease of native coronary artery without angina pectoris; R51.9 Headache, unspecified; E78.5 Hyperlipidemia, unspecified; I10 Essential (primary) hypertension; F17.200 Nicotine dependence, unspecified, uncomplicated
CPT/HCPCS: 70450; 80048; 85025; 93005; 99285; J7030

== ENCOUNTER → 2022-06-11 | Outpatient (CLI) | payer MEDICARE, SELFPAY | END | disposition home or self-care (01) | LOC: PSN 13:37 | PROVIDERS: PCP Family Medicine; Referring Provider Physician Assistant Medical; Visit Provider Physician Assistant Medical | DX: R00.2 Palpitations (principal) | CPT/HCPCS: 93225; 93226 ==

== ENCOUNTER 2022-06-12 15:00 | Outpatient (RCR) | payer MEDICARE, SELFPAY ==
--- NOTE | 2022-04-25 12:02 | HP.PTEVAL_ITS ---
Patient's Visit Information KAELYN DRUMMOND is a 66 year old F referred to Physical Therapy by Dr. Anahi Latif DO with a diagnosis of Subdural hematoma, debility. Date of Evaluation: 04/24/22 Physical Therapist: Km Tate DPT - Visit Plan Frequency: 2x /Week Duration: 6 Weeks Plan: Start with BLE strengthening and endurance exercises. Promote walking program. Add in HS stretching and dynamic narrow ESTEBAN balance activities. - Subjective Pt. is here is today for her initial evaluation with diagnosis of subdural hematoma, debility. Pt. reports getting better overall. She did have a craniotomy in October, and a pressure re leaving procedure in Early March. 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 Pt. is hopeful to get back to doing so. She reports having some short term memory issues. Pt. reports some occasional leg soreness (muscle soreness). She is sleeping well without reports of increased HAs. She does have some symptoms with bending over and looking up. She is able to do most of her ADLs and IADLs, but does fatigue rapidly. Pt. does live by her self in a 1 story appt. She does not have stairs to enter/exit work, but will have to lift up to 25lbs at times. She is hopeful to get back to all recreational and work activities without limitations. - Objective POSTURE: Pt. has overall good posture in stance. No changes in ESTEBAN and no sway noted. PALPATION: Pt. has no pain with palpation of BLEs. She has well healing incision at top of skull no signs of infection. NEURO: Pt. has normal DTR of BLEs. Normal sensation. Pt. is able to rise on heels and toes with slight ba lobo aide from wall. ROM: Pt. has good ROM of BLEs. She does have good lumbar ROM and cervical ROM. She does get a little light headed with bending over (physician told to her avoid frequently bending over). MMT: RLE: ankle 5/5 throughout; knee: ext 51.3#, flexion 47#; hip: flexion 23#, abd 21#, ext 25#. LLE: ankle 5/5 throughout; knee: ext: 46#, flexion 42#; hip: flexion 21#, abd 18#, ext 23#. Core strength- poor+. GAIT: - Balance/Special Test Scores Functional Gait Assessment Score: 24 % Disability: 20.0000 CATSIB Score (Max score 120 seconds): 82 Lower Extremity Functional Score: 61 TUG Test Time Seconds: 8.51 30 Second Chair Rise Test Seconds: 10 6 Minute Walk Test: Pt completed 311 feet with out AD, but was only able to walk for 2:14 minutes to HS soreness and fatigue - Goals Goal 1:: LTG: Pt. to be I with HEP. Goal Time Frame: 4-6 Weeks Goal 2:: LTG: Pt. to have symmetrical strength in BLEs allowing for increased stability with all functional activities. Goal Time Frame: 4-6 Weeks Goal 3:: LTG: pt. to have FGA score increased to 27/30 indicating improved dynamic balance. Goal Time Frame: 4-6 Weeks Goal 4:: LTG: Pt. to be able to finish 6 MWT with distance of at least 650 feet with out limitations. Goal Time Frame: 4-6 Weeks Goal 5:: STG: pt. to have good B HS length and no pain in HS with all walking noted. Goal Time Frame: 2-4 Weeks Goal 6:: LTG: pt. to be able to curing pickling packer 25# from lower [address] at waist high counter top to simulate work related activities. Goal Time Frame: 4-6 Weeks - Rehabilitation Potential Physical Therapy Diagnosis: Pt. has signs and symptoms consistent with Subdural Hematoma with subsequent debility. She has some weakness, but not as much as I would have suspected. She is overall moving well. I did notice some functional weakness, endurance issues and some instability with higher level balance. I would like to work on these issues progressing back to work related activities. Rehabilitation Potential: Excellent - Anticipated Interventions Patient/Client Instruction: Educate patient on: Condition, Plan of Care, Risk Factors, Benefits of Fitness Program For the Purpose of:: To reduce risk of recurrence, To improve safety, To improve health and function, To foster healthy habits, To improve decision making, To facilitate caregiver knowledge, To improve self management, To prevent re-inju ry, To improve ability to perform tasks related to life management Therapeutic Exercise to Include: Strength training, Endurance training, Balance training, Coordination, Body mechanics, Gait and locomotor training For the Purpose of:: To increase ROM, To improve nutrient delivery to tissue, To increase oxygenation perfusion, To improve muscle performance and motor function, To improve ability to perform ADL's, To improve gait and locomotor functions, To improve health of tissue, To decrease soft tissue restriction, To increase flexibility/ROM Thank you for the opportunity to evaluate your patient. For Medicare and Medicare HMO plans, please review the plan of care and approve it. It will need to be FAXED BACK to us at [phone] for Medicare purposes. For Medicare only, by signing this I certify the plan of care. Please let me know if there are questions or concerns regarding this plan of care. Physician Signature: Date:
--- NOTE | 2022-04-30 11:57 | HP.SP.EVAL ---
History - History Date of Eval: 04/30/22 Medical Diagnosis (from RX): SDH Previous speech therapy: Yes Results: She went to [facility] for rehab after release from the hospital in October. She participated in speech therapy at that time to address mild cognitive-linguistic impairment characterized by deficits in short-term memory, word retrieval, attention, and math/money problem solving/reasoning concepts. Other Relevant Medical History/Diagnoses/Surgery: PMH of PVD with hx of a LLE stent, anxiety, hx of. alcoholism, colon polyps, chronic back pain, diverticulosis, hypertension, history of gastritis,. hyperlipidemia, marijuana use, coronary artery disease with history of stent placement in L circ on , tobacco dependence, history of uterine cancer, left upper lobe pulmonary nodule, iron. 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 to the ED at [facility] on 03/28/22 from her PCP's office c/o severe GOMES for 3 days and associated N/V/. photophobia. Noncontrast CT brain in the emergency room showed a small to moderate size acute. right subdural hematoma with a midline shift from right to left of 0.9 cm. She denied any recent. trauma to the head. She was transferred to [facility] for further evaluation. She was taken to the OR. on 03/28/22 for evacuation of the hematoma by Dr. Granados. Post op course was complicated by. Delirium and dysphagia. She was seen by ST. She has expressive aphasia, dysarthria, receptive. aphasia and cognitive deficits in addition to dysphagia. She is on Minced and moist textures and thin. liquids with 1:1 supervision at the time of DC from [facility]. ST/PT/OT recommended inpt acute rehab. and she was transferred to [facility] acute inpt rehab on 04/04/22 for 3 hours of therapy daily to restore. function at or near her prior level of function. Smoking Status: Heavy Smoker (>10/day) Hx Smoking: Yes Hx Tobacco Use: Yes Hx Smoking Exposure: Yes - Pain Is pain an issue with your current prescribed condition?: No Patient Allergies - Allergies Allergies acetaminophen [From Percocet] Allergy (Intermediate, Verified 04/29/22 11:07) Itching oxycodone [From Percocet] Allergy (Intermediate, Verified 04/29/22 11:07) Itching Objective Cog/Ling/Com - Test Administered Ahcehpeym-Rfcvvicchv-Xxzgkrtvbqkti Assessment Administered: Yes Mhinzuzon-Dtrlofiilb-Vazttutqibhpz Assessment: Cognitive ? Linguistic skills were evaluated using patient/family interview, skilled observation and informal evaluation through tasks completed by the patient. - Orientation Orientation: Person, Place, Birthdate, Medical Diagnosis - Numerical Skills Balancing Checkbook [place]: Patient verbalized that she does her banking on her phone with no difficulty. She reported difficult in the hospital as she was trying to complete a paper checkbook at that time which was not how she reported doing it previously. - Information Gathering Information Gathering: WFL - Cause & Effect Cause & Effect: WNL - Problem Solving Simple: WNL Complex: WNL - Judgement & Reasoning Judgement/Reasoning: WNL - Deductive Reasoning Deductive Reasoning: WNL - Executive Function Comments Comments: Anitra was able to answer all questions appropriately for problem solving, judgement and reasoning. She explained how she does her medications and money management appropriately. She lives independently but had her son with her until two days ago. She was able to explain her job and the demands of it as well as how she will handle it. She was able to schedule a doctor appointment during the evaluation and used her calendar to not double book herself. She reported having a memory system in place as well as using a calendar. CLQT - CLQT CLQT Administered: Yes CLQT: Cognitive Linguistic Quick Test (CLQT) is a criterion - referenced assessment designed for adults between the ages of 18 and 89 with known or suspected neurological dysfuntions. The CLQT is to assess strength and weaknesses in five cognitive domains. Severity ratings are within normal limits, mild, moderate, severe deficits. The subtests are as follows: Date: 04/30/22 - Attention Attention: WNL - Memory Memory: WNL - Executive Functions Executive Functions: WNL - Language Language: WNL - Visuospatial Skills Visuospatial Skills: WNL - Composite Severity Rating Composite Severity Rating: WNL - CLQT Comments Comments Anitra met the cut criterion score for all subtests except symbol trails. She was aware that she made a mistake but then was unable to correct it. - In past 7 days I had to read something several times to understand it: Sometimes (2-3 times) My thinking was slow: Never I had to work really hard to pay attention or i would make a mistake: Rarely (once) I had trouble concentrating: Never - How much DIFFICULTY do you currently reading & following complex instructions (e.g. directions for new medication: None planning for & keeping appts that are not part of weekly routine: None managing your time to do most of your daily activities: None learning new tasks or instructions: None - Neuro-QOL Score Raw Score: 37 T - Score: 54.2 Plan - Plan Plan: No speech therapy is warranted as patient stated that she has a memory system in place. The patient was educated on how to obtain another evaluation if she feel it is warranted once she returns to work. - Recommendations Treatment Warranted: No Education - Patient has Indicated that the Following Identified Educational Needs: None The Patient has indicated that they have no educational or learning abilities that may effect their care.: Yes - Patient Instruction Patient Education: Diagnosis, Home Exercise Program Person Taught: Patient Teaching Method: Discussion Response to teaching: Verbalize understanding
--- NOTE | 2022-05-09 10:52 | HP.OTEVAL ---
Patient's Visit Information KAELYN DRUMMOND is a 66 year old F, referred to Occupational Therapy by Dr. Ludwin Christianson MD, with a diagnosis of SDH, debility. Date of Evaluation: 05/09/22 Occupational Therapist: Ivonne Hopson, SALBADORR/Zbigniew, CHT - Subjective This 66 year old female was seen for OT eval with dx of subdural hematoma, debility. pt states she had a spell of vomiting where she suffered her SDH 2021. Pt. reports getting better overall. She did have a craniotomy in October, and a pressure leaving procedure in Early March. 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 Pt. is hopeful to get back to doing so. She reports having some short term memory issues. Pt. reports some occasional leg soreness (muscle soreness). She is sleeping well without reports of increased HAs. She does have some symptoms with bending over and looking up. She is able to do most of her ADLs and IADLs, but does fatigue rapidly. Pt. does live by her self in a 1 story appt. She does not have stairs to enter/exit work, but will have to lift up to 25lbs at times. She is hopeful to get back to all recreational and work activities without limitations. pt on no lift restrictions will see in about 2 weeks and then he will tell her if her lifting restriction are lifted - ADLs Comments: pt goes to laundry mat and able to do her laundry. does own cleaning. takes care of her pet. pt employed and would like to get back to work. pt gets up at 5-6am and will take care of her cleaning of her kitchen etc and will work till about 10-10:30 and stop and take a nap. pt has concerns with stress- endurance and performing her daily task. NO Driving. makes bed every day. change litter box daily. pt states she is moving much slower than prior to her TBI - Pain head 3 Pain Intensity Range: 6 - ROM Shoulder: right/left WNL Elbow: right/left WNL Forearm: right/left WNL Wrist: right/left WNL ROM Comments: no deficits noted in her UE ROM. pt demo with full composite fist - Strength Shoulder: right 8# left 10# peak force Elbow: right 12# left 11# peak force Piece Work Checker: right 40# left 35# Lateral Pinch: right 6# left 6# Tripod Pinch: right 4# left 2# Strength Comments: pt demo with generalized weakness - Sensation Sensation Comments: denies - Nine Hole Peg Right: 18.83 sec. Left: 21.45 sec. - Quick DASH-Disab of Arm,Shoulder& Hand Quick DASH Score: 50.0000 - Goals Goal:: pt will demo a increase in bilateral UB strength by 10# to increase pts ind with ADLs and IADls. pt will demo a increase in bilateral rn forensic strength by 10# to increase pts with ADls and IADLs Goal:: pt will report she is able to completed her Dressing and bathing tasks within 30 min to return her PLOF. Goal:: pt will demo understanding of using ad. eq. to increase safety with ADLs and IADls by D/C. - Rehabilitation General Assessment: Pt demo with generalized weakness of UB increasing difficulty with completion of her ADLs and IADls. pt would benefit from skilled OT services 1-2x week for next 4-6 weeks to increase her IND with ADLs and IADLs as well as home modification and energy conservation halley. pt demo understanding and agree to POC. Rehabilitation Potential: Good - Anticipated Interventions A/AAROM/PROM, Strengthening, Ergonomic Education, Fine Motor Coord/Eligio, Neuro Reeducation, ADL Training, Education re assistive Equipment, Education re Diagnosis - Visit Plan Frequency: 1-2x /Week Duration: 6 Weeks TEXT: Thank you for the opportunity to evaluate your patient. For Medicare and Medicare HMO plans, please review the plan of care and approve it. It will need to be FAXED BACK to us at [phone] for Medicare purposes. Please let me know if there are questions or concerns regarding this plan of care. Physician Signature: Date:
--- NOTE | 2022-06-11 08:45 | HP.PTREVAL_ITS ---
Dr. Ludwin Christianson MD, It has been my pleasure to treat KAELYN DRUMMOND over the last 9 visits for Subdural hematoma, debility. Please see the progress note below for an update on the physical therapy plan of care! Subjective: Pt. reports seeing physician and was release to complete all normal activities as tolerated. Pt. reports being 90% better. She does report some issues with LE fatigue and burning in calves with walking. Pt. reports doing well otherwise. Pt. is to talk with physician about resume her old medication that helped with this. Plans to return to work at the end of May. Objective/Function: MMT: pt. has symmetrical LE strength, 5/5 throughout, except 4+/5 B hip abd and glute strength. GAIT: pt. has normal gait pattern without limitations. FGA: /30. Greatest trouble is with narrow ESTEBAN. Pt. is overall doing well. Pt. reports no pain. She would like to be a bit stronger in order to start working out in gym. Plan Plan: Pt. to be seen for 2 more visits to work on gym program then DC. Balance/Gait/Functional tests - Balance/Special Test Scores Functional Gait Assessment Score: 24 % Disability: 20.0000 CATSIB Score (Max score 120 seconds): 82 Lower Extremity Functional Score: 61 TUG Test Time Seconds: 8.51 Tug Test: <10 sec.=free mobile 30 Second Chair Rise Test Seconds: 10 6 Minute Walk Test: Pt completed 311 feet with out AD, but was only able to walk for 2:14 minutes to HS soreness and fatigue Goals Goal 1:: LTG: Pt. to be I with HEP. Goal Time Frame: 4-6 Weeks Goal Progress: Goal Met Goal 2:: LTG: Pt. to have symmetrical strength in BLEs allowing for increased stability with all functional activities. Goal Time Frame: 4-6 Weeks Goal Progress: Goal Met Goal 3:: LTG: pt. to have FGA score increased to 27/30 indicating improved dynamic balance. Goal Time Frame: 4-6 Weeks Goal Progress: Goal Met Goal 4:: LTG: Pt. to be able to finish 6 MWT with distance of at least 650 feet with out limitations. Goal Time Frame: 4-6 Weeks Goal Progress: Goal Met Goal 5:: STG: pt. to have good B HS length and no pain in HS with all walking noted. Goal Time Frame: 2-4 Weeks Goal Progress: Goal Met Goal 6:: LTG: pt. to be able to picker packer 25# from lower [address] at waist high counter top to simulate work related activities. Goal Time Frame: 4-6 Weeks Goal Progress: Progressing Anticipated Interventions Patient/Client Instruction: Educate patient on: Condition, Plan of Care, Risk Factors, Benefits of Fitness Program For the Purpose of:: To reduce risk of recurrence, To improve safety, To improve health and function, To foster healthy habits, To improve decision making, To facilitate caregiver knowledge, To improve self management, To prevent re- injury, To improve ability to perform tasks related to life management Therapeutic Exercise to Include: Strength training, Endurance training, Balance training, Coordination, Body mechanics, Gait and locomotor training For the Purpose of:: To increase ROM, To improve nutrient delivery to tissue, To increase oxygenation perfusion, To improve muscle performance and motor funct ion, To improve ability to perform ADL's, To improve gait and locomotor functions, To improve health of tissue, To decrease soft tissue restriction, To increase flexibility/ROM Please do not hesitate to contact me at [phone] by phone or if you have questions or concerns regarding this new plan of care! Sincerely, Km Tate DPT
--- NOTE | 2022-06-11 11:31 | HP.PTDCSUM_ITS ---
It has been my pleasure to treat KAELYN DRUMMOND referred by Dr. Ludwin Christianson MD, with the diagnosis of Subdural hematoma, debility for a total of 11 visit(s). Discharge Date: 06/11/22 Please see the following information for a summary of their discharge status. Subjective: Pt. reports no issues after her last visit. Pt. pleased. NO issues noted today. % Improvement: 90 Objective/Function: Pt. challenged with all PT exercises this date. Pt. is now independent with all of her exercises. Pt. pleased. She has met all goals and will be DC from PT at this point in time. Goal 1:: LTG: Pt. to be I with HEP. Goal Progress: Goal Met Goal 2:: LTG: Pt. to have symmetrical strength in BLEs allowing for increased stability with all functional activities. Goal Progress: Goal Met Goal 3:: LTG: pt. to have FGA score increased to 27/30 indicating improved dynamic balance. Goal Progress: Goal Met Goal 4:: LTG: Pt. to be able to finish 6 MWT with distance of at least 650 feet with out limitations. Goal Progress: Goal Met Goal 5:: STG: pt. to have good B HS length and no pain in HS with all walking noted. Goal Progress: Goal Met Goal 6:: LTG: pt. to be able to waste picker 25# from lower [address] at waist high counter top to simulate work related activities. Goal Progress: Goal Met Plan: DC from PT to [employer] gym program Discharge Comments: Pt. is doing very well. She is now independent with gym strengthening and endurance program. Pt. will be DC to this program at this point in time. If there are questions or concerns regarding this patient's physical therapy, please feel free to call me at [phone]. Thank you for the referral of this patient. Sincerely, Km Tate, DPT Balance/Gait/Functional tests - Balance/Special Test Scores Functional Gait Assessment Score: 24 % Disability: 20.0000 CATSIB Score (Max score 120 seconds): 82 Lower Extremity Functional Score: 70 TUG Test Time Seconds: 8.51 Tug Test: <10 sec.=free mobile 30 Second Chair Rise Test Seconds: 10 6 Minute Walk Test: Pt completed 311 feet with out AD, but was only able to walk for 2:14 minutes to HS soreness and fatigue
--- NOTE | 2022-06-12 15:35 | HP.OTDCSUM_ITS ---
It has been my pleasure to treat KAELYN DRUMMOND under orders from Dr. Ludwin Christianson MD, for the diagnosis of SDH, debility for a total of 9 visit(s). Please see the following information for a summary of their discharge status. % Improvement: 95 Objective/Function: right production manager strength 40# left 40#. right lateral pinch 8# left 8#. right biceps/triceps 18# a increase from 12#. left biceps/triceps 20# a increase from 11#. pt has met OT goals at this time. pt demo understanding of her UB gym ex. program- and will initiate silver sneaker program Patient Goals: Regain Mobility, Use Hand/Wrist/Arm Normally Again, Be More Independent in ADLS Goal:: pt will demo a increase in bilateral UB strength by 10# to increase pts ind with ADLs and IADls. pt will demo a increase in bilateral production manager strength by 10# to increase pts with ADls and IADLs Goal:: pt will report she is able to completed her Dressing and bathing tasks within 30 min to return her PLOF. Goal:: pt will demo understanding of using ad. eq. to increase safety with ADLs and IADls by D/C. Plan: transition to gym eq. when lifting restriction is lifted. If there are questions or concerns regarding this patient's occupational therapy, please fell free to call me at [phone]. Thank you for the referral of this patient. Sincerely, Ivonne Hopson, OTR/L, CHT
== END 2022-06-12 19:00 | disposition home or self-care (01) ==
LOC: OT 15:00
PROVIDERS: PCP Family Medicine; Referring Provider Internal Medicine; Visit Provider Family Medicine
DX: S06.5X9D Traumatic subdural hemorrhage with loss of consciousness of unspecified duration, subsequent encounter (principal); X58.XXXD Exposure to other specified factors, subsequent encounter; R53.83 Other fatigue; R41.841 Cognitive communication deficit
CPT/HCPCS: 92523; 97110; 97161; 97164; 97166; 97530

== ENCOUNTER → 2022-07-29 | Outpatient (CLI) | payer MEDICARE, SELFPAY | END | disposition home or self-care (01) | LOC: LABSPEC 12:09 | PROVIDERS: PCP Family Medicine; Visit Provider Nurse Practitioner Family | DX: R30.0 Dysuria (principal) | CPT/HCPCS: 87086; 87088; 87186 ==

== ENCOUNTER → 2022-08-13 | Outpatient (CLI) | payer MEDICARE, SELFPAY ==
[2022-08-13 10:29] LABS: ALB/GLOB Ratio 1.2 RATIO (0.9-2.4); AST(SGOT) 11 U/L (15-37); Alanine Aminotransfer ALT/SGPT 29 U/L (13-56); Albumin, Serum 3.6 g/dL (3.2-5.0); Alkaline Phosphatase 73 U/L (45-117); Anion Gap 5 (5-15); BUN 14 mg/dL (7-18); BUN/Creat Ratio 23.2 RATIO (10-20); Calcium,Total 9.2 mg/dL (8.5-10.1); Chloride 106 mmol/L (98-107); EST Glomerular Filtration Rate 105 mL/min (>60); Est Glom Filt Rate - Afr Amer 127 mL/min (>60); Globulin 3.1 g/dL (2.2-4.2); Glucose 126 mg/dL (74-106); Potassium 4.4 mmol/L (3.5-5.1); Protein, Total 6.7 g/dL (6.4-8.2); Sodium Level 139 mmol/L (136-145)
== END | disposition home or self-care (01) ==
LOC: MTLAB 09:06
PROVIDERS: PCP Family Medicine; Referring Provider Nurse Practitioner Family; Visit Provider Nurse Practitioner Family
DX: E11.9 Type 2 diabetes mellitus without complications (principal)
CPT/HCPCS: 36415; 80053

== ENCOUNTER → 2022-10-09 | Outpatient (CLI) | payer MEDICARE, SELFPAY ==
--- NOTE | 2022-10-09 08:09 | ART_ITS ---
Reason For Study: Claudication Procedure A bilateral lower extremity continuous wave Doppler with analog waveform analysis,segmental pressures,and ankle brachial indexes without exercise. Left Segmental Pressures Left brachial= 146mmHg. Left thigh = 112mmHg. Left calf = 53mmHg. Left posterior tibial artery = 70mmHg. Left dorsalis pedis artery = 60mmHg. Left digit = 57 mmHg. The left dorsalis pedis waveforms are monophasic. The left posterior tibial artery waveforms are monophasic. Right Segmental Pressures Right brachial= 148mmHg. Right thigh = 97mmHg. Right calf = 72mmHg. Right posterior tibial artery = 91mmHg. Right dorsalis pedis artery = 77mmHg. Right digit = 34 mmHg. The right dorsalis pedis waveforms are monophasic. The right posterior tibial artery waveforms are monophasic. Indices The right ankle brachial index by the dorsalis pedis is 0.52. The right ankle brachial index by the posterior tibial artery is 0.61. The right digital-brachial index is 0.23. The left ankle brachial index by the dorsalis pedis is 0.41. The left ankle brachial index by the posterior tibial artery is 0.47. The left digital-brachial index is 0.39. . Preliminary report to Heather MENJIVAR. VL/Lower Ext Art Exam w/o Exercis Interpretation Summary Right JEANIE 0.61, moderate arterial insufficiency. Doppler/PVR waveforms and segm ental pressures reveal ryqvu-luobv-uolgbuhf femoral, distal SFA/popliteal disease. Left JEANIE 0.47, severe arterial insufficiency. Doppler/PVR waveforms and segment al pressures reveal ozffn-pswwi-avdlsznk femoral, distal SFA/popliteal disease. Ordering Physician: Ivonne Mendoza Referring Physician: Iris Clayton Performed By: Loida Oliver RVT
== END | disposition home or self-care (01) ==
PROVIDERS: PCP Nurse Practitioner Family; Referring Provider Physician Assistant Medical; Visit Provider Physician Assistant Medical
DX: I73.9 Peripheral vascular disease, unspecified (principal); I10 Essential (primary) hypertension
CPT/HCPCS: 93923

== ENCOUNTER → 2022-11-06 | Outpatient (CLI) | payer MEDICARE, SELFPAY ==
[2022-11-06 10:25] LABS: Anion Gap 7 (5-15); BUN 15 mg/dL (7-18); BUN/Creat Ratio 25.2 RATIO (10-20); Calcium,Total 9.3 mg/dL (8.5-10.1); Chloride 107 mmol/L (98-107); Cholesterol 194 mg/dL (200); EST Glomerular Filtration Rate 107 mL/min (>60); Est Glom Filt Rate - Afr Amer 129 mL/min (>60); Glucose 119 mg/dL (74-106); High Density Lipoprotein 39 mg/dL; Potassium 4.1 mmol/L (3.5-5.1); Sodium Level 140 mmol/L (136-145); Triglycerides 260 mg/dL; Very Low Density Lipoprotein 52 mg/dL (5-40)
== END | disposition home or self-care (01) ==
LOC: MFPLAB 08:21
PROVIDERS: PCP Nurse Practitioner Family; Referring Provider Nurse Practitioner Family; Visit Provider Nurse Practitioner Family
DX: E11.69 Type 2 diabetes mellitus with other specified complication (principal)
CPT/HCPCS: 36415; 80048; 80061

== ENCOUNTER → 2022-12-04 | Outpatient (CLI) | payer MEDICARE, SELFPAY ==
--- NOTE | 2022-12-04 07:43 | AAVD_ITS ---
Reason For Study: Atherosclerosis Aorta Measurements Aorta Doppler Measurements Proximal aorta measures1.72 x 1.69cm. in cross- Peak systolic flow velocities within the proximal sectional axis. aorta measure 72.3 cm/sec. Proximal aorta measures1.71cm. in longitudinal Peak systolic flow velocities within the mid aorta axis. measure 68.7 cm/sec. Mid aorta measures1.38 x 1.34cm. in cross- Peak systolic flow velocities within the distal sectional axis. aorta measure 83.2 cm/sec. Mid aorta measures1.35cm. in longitudinal axis. Distal aorta measures1.05 x 1.05cm. in cross- sectional axis. Distal aorta measures1.03cm. in longitudinal axis. Left Iliac Artery Left iliac artery measures 0.70 x 0.71 cm. in the cross-sectional axis. Left iliac artery measures 0.75 cm. in the longitudinal axis. Peak systolic velocity in the left iliac artery measures 119 cm/sec. Right Iliac Artery Right iliac artery measures 0.79 x 0.78 cm. in the cross-sectional axis. Right iliac artery measures 0.75 cm. in the longitudinal axis. Peak systolic velocity in the right iliac artery measures 229.3 cm/sec. Procedure Aorta IVC Iliac vasculature or bypass grafts 70081. Exam performed in department. VL/Abd Aortic/IVC Duplex scan Interpretation Summary No aortoiliac aneurysm or stenosis seen. Ordering Physician: Brenabe Kingston Referring Physician: Iris Clayton Performed By: Loida Oliver RVT
--- NOTE | 2022-12-04 07:44 | ART_ITS ---
Reason For Study: Atherosclerosis Procedure A bilateral lower extremity continuous wave Doppler with analog waveform analysis and ankle brachial indexes. Left Segmental Pressures Left brachial= 122mmHg. Left posterior tibial artery = 80mmHg. Left dorsalis pedis artery = 77mmHg. Left digit = 34 mmHg. The left dorsalis pedis waveforms are monophasic. The left posterior tibial artery waveforms are monophasic. Right Segmental Pressures Right brachial= 126mmHg. Right posterior tibial artery = 87mmHg. Right dorsalis pedis artery = 88mmHg. Right digit = 63 mmHg. The right dorsalis pedis waveforms are monophasic. The right posterior tibial artery waveforms are monophasic. Indices The right ankle brachial index by the dorsalis pedis is 0.70. The right ankle brachial index by the posterior tibial artery is 0.69. The right digital-brachial index is 0.50. The left ankle brachial index by the dorsalis pedis is 0.61. The left ankle brachial index by the posterior tibial artery is 0.63. The left digital-brachial index is 0.27. VL/Ankle Brachial Index Interpretation Summary Bilateral monophasic flow and EJANIE 0.73 and 0.63. DBI 0.5 and 0.27. Ordering Physician: Bernabe Kingston Referring Physician: Iris Clayton Performed By: Loiad Oliver RVT
--- NOTE | 2022-12-04 07:44 | ADU_ITS ---
Reason For Study: Atheroscerlosis Right Velocities Left Velocities Ext. Iliac Artery, dist = 136.3 cm./sec. Ext Iliac Artery, dist = 155.3 cm./sec. Common Femoral Artery, mid = 208.8 cm./sec. Common Femoral Artery, mid = 149.3 cm./sec. SFA, origin, 195.9 cm/sec. SFA origin to prox is occluded. SFA, prox, 88.8 cm/sec. SFA, prox, distal to occlusion, 16.2 cm/sec. SFA, prox, prox to occlusion, 36.3 cm/sec. SFA, mid, 16.4 cm/sec. SFA prox-mid is occluded. SFA, distal, 45 cm/sec. SFA, mid, distal to occlusion, 31.1 cm/sec. Profunda Femoral Artery = 133.7 cm./sec. SFA, distal, 25.8 cm/sec. Popliteal Artery, mid = 31.1 cm./sec. Profunda Femoral Artery = 128.6 cm./sec. Post. Tibial Artery, prox = 38.9 cm./sec. Popliteal Artery, mid = 32.8 cm./sec. Post Tibial Artery, mid = 38 cm./sec. Post. Tibial Artery, prox = 18.9 cm./sec. Post Tibial Artery, dist. = 26.7 cm./sec. Post. Tibial Artery, mid = 21 cm./sec. Peroneal Artery, prox = 15.9 cm./sec. Post. Tibial Artery, dist = 15.9 cm./sec. Peroneal Artery, mid = 22 cm./sec. Peroneal Artery, prox = 11.3 cm./sec. Peroneal Artery,dist. = 12.9 cm./sec. Peroneal Artery, mid = 12.8 cm./sec. Ant.Tibial Artery, prox = 29.5 cm./sec. Peroneal Artery,dist = 8.1 cm./sec. Ant Tibial Artery, mid = 29.5 cm./sec. Ant. Tibial Artery, prox = 23.1 cm./sec. Ant. Tibial Artery, distal = 24 cm./sec. Ant. Tibial Artery, mid = 14.8 cm./sec. Ant. Tibial Artery, dist = 13.2 cm./sec. Procedure Exam performed in department. Preliminary report to [place]. /US Art Duplex Bilat Lower Ext Interpretation Summary Bilateral femoral occlussion. Ordering Physician: Bernabe Kingston Referring Physician: Iris Perdue Performed By: Loida Oliver RVT
== END | disposition home or self-care (01) ==
PROVIDERS: PCP Nurse Practitioner Family; Referring Provider Surgery Vascular Surgery; Visit Provider Surgery Vascular Surgery
DX: R09.89 Other specified symptoms and signs involving the circulatory and respiratory systems (principal); I70.213 Atherosclerosis of native arteries of extremities with intermittent claudication, bilateral legs
CPT/HCPCS: 93922; 93925; 93978

== ENCOUNTER → 2023-03-11 | Outpatient (CLI) | payer MEDICARE, SELFPAY ==
--- NOTE | 2023-03-11 12:52 | BI_ITS ---
MAMMOGRAPHY - BILATERAL SCREENING REASON FOR EXAM: Female, 67 years old. Routine annual screening examination. PERTINENT HISTORY: Non-contributory. TECHNIQUE: Digital bilateral breast irene (3D mammographic acquisition) in the CC and MLO projections. 2-D mediolateral oblique (MLO) and craniocaudad (CC) views of both breasts were obtained. CAD: Full Field Digital Mammography with Computer Added Detection was performed. COMPARISON: Comparison is made with prior study March 06, 2022 and February 13, 2021. FINDINGS: Breast Composition: There are scattered areas of fibroglandular density. There are no dominant masses or suspicious calcifications. Stable small benign-appearing bilateral axillary lymph nodes. No other significant abnormalities are identified. There has been no significant change since the prior study. BI/SCRN MAMM (CAD)W/IRENE BILAT IMPRESSION: Stable bilateral screening mammogram. Yearly follow-up mammogram recommended. (A) ASSESSMENT CATEGORY: BIRADS Category 2: Benign. A letter regarding these results will be sent to the patient by the facility within 30 days. Approximately 10% of breast cancers are not detected by mammography. A normal mammogram should not delay biopsy of a clinically suspicious abnormality. [id number] Electronically Signed: Claude Nunez MD at 13:56 EDT ,
== END | disposition home or self-care (01) ==
LOC: OPBI 12:50
PROVIDERS: PCP Nurse Practitioner Family; Referring Provider Internal Medicine Hematology & Oncology; Visit Provider Internal Medicine Hematology & Oncology
DX: Z12.31 Encounter for screening mammogram for malignant neoplasm of breast (principal)
CPT/HCPCS: 77063; 77067

== ENCOUNTER → 2023-04-01 | Outpatient (CLI) | payer MEDICARE, SELFPAY ==
--- NOTE | 2023-04-01 14:37 | CT_ITS ---
ACR Level 3 findings have been noted. An addendum which confirms receipt of the report will follow. INDICATION: PULMONARY NODULE follow-up. Smoker one pack per day x53 years intermittently. EXAMINATION: CT CHEST WITHOUT CONTRAST - CT Chest W/O Contrast Injection TECHNIQUE: Helically acquired images were obtained of the chest. A radiation dose optimization technique was used for this scan. IV Contrast dosage and agent: None. COMPARISON: March 06, 2022. FINDINGS: LUNGS, PLEURA AND LARGE AIRWAYS: Spiculated medial anterior left upper lobe irregular mass measuring 3.5 x 2.5 cm in axial plane, increased in size from 2.2 x 1.3 cm on prior exam and measures similarly and extending to the anterior left hilum. Mass borders the left mediastinal margin. New or increased size of prevascular lymph nodes measuring 8 and 7 mm in short axis, axial image 40 and 44 additional smaller new or increased left superior mediastinal lymph nodes adjacent to the great vessels, axial image 32. Pretracheal lymph nodes are unchanged from prior exam nonpathologic by size criteria. No bulky hilar adenopathy for noncontrast exam. . THYROID: No thyroid lesions. HEART AND PERICARDIUM: No cardiomegaly. No pericardial effusion. Severe multivessel coronary atherosclerosis. . VESSELS: Aortic atherosclerosis without ectasia. MEDIASTINUM AND DERIK: No mediastinal or hilar adenopathy. Esophagus is unremarkable. No hiatal hernia. UPPER ABDOMEN: Hepatic steatosis. BONES: No suspicious lytic or blastic abnormality. CT/Chest without Contrast IMPRESSION: Anterior medial left upper lobe 3.5 cm irregular mass, bordering the left mediastinal margin and anterior left hilum, has significantly increased in size from March 06, 2022 suspicious for malignancy. Pulmonary follow-up recommended for consideration of tissue sampling for histopathologic diagnosis. New adjacent prevascular superior mediastinal adenopathy Hepatic steatosis. Electronically Signed: Claudio Berger MD at 8:17 EDT ,
== END | disposition home or self-care (01) ==
LOC: CT 14:35
PROVIDERS: PCP Nurse Practitioner Family; Referring Provider Internal Medicine Pulmonary Disease; Visit Provider Internal Medicine Pulmonary Disease
DX: R91.1 Solitary pulmonary nodule (principal)
CPT/HCPCS: 71250

== ENCOUNTER 2023-05-01 07:40 | Outpatient (CLI) | payer MEDICARE, SELFPAY ==
[2023-05-01] VITALS (12 sets, daily range): BP systolic 112–199; BP diastolic 61–100; PULSE 61–70; RESP 12–18; TEMP 36.3; O2SAT 88–97; BMI 32.9
--- NOTE | 2023-05-01 | ASPIGT_PTH ---
PATIENT: KAELYN DRUMMOND LOC: CT U#:[id number] AGE/SX: 67/F ROOM: RE05/01/[address]: Dr. Damion Winter MD : 1955 BED: DIS: 05/01/2023 SPEC #: [id number] RECD: 05/01/23 09:39 STATUS: VALERIO REHernan #: [id number] RYDER: 05/01/23 00:[address]: Damion Winter V DEPT: SURGICAL PATHOLOGY RECD BY: Nancy Bailon ENTERED: 05/01/23 09:40 SP TYPE: ASP RAD OTHR DR: Iris Clayton, HOME HEALTH ASSISTANT-C Tissues: Lung, NOS Procedures: FNA Specimen Adequacy Special Stain Group II Mucicarmine Stain (control) Surgery Specimen Level IV Imprint (control) HEADER OPERATION: CT-guided left lung biopsy PRE-OP DIAGNOSIS: Left upper lung mass TISSUE SUBMITTED: Left upper lung mass 20-gauge core x5 MICROSCOPIC DIAGNOSIS Left upper lobe lung mass, CT-guided core biopsy: Non-small cell carcinoma, favor adenocarcinoma with mucinous differentiation. See comment. SJ:adrienne 05/02/2023 COMMENT The specimen is evaluated at the time of biopsy by Dr. Murillo. Immediate Evaluation = Malignant cells present derived from non-small cell carcinoma. Immunohistochemistry ([id number]) supports the above diagnosis and favors lung primary. Mucin stain with matched control is used in the evaluation of the specimen. Mucin stain is positive in tumor cells. Molecular studies on the tumor can be performed if clinically indicated. Please notify the laboratory if they are needed. Case has been reviewed in consultation with Dr. Quinones who concurs with the above diagnosis. IDC:AM MICROSCOPIC DESCRIPTION Slides are reviewed. GROSS DESCRIPTION Received in fixative is one container labeled with the patient's name and designated left upper lobe lung biopsy. The specimen consists of multiple elongated fragments of mcmahon soft tissue that in aggregate measure 1.0 x 0.2 x 0.1 cm. The specimen is totally submitted in one cassette. Two touch imprints are prepared at the time of core biopsy. / SJ:rg 05/01/2023 TC:0 CPT: 47171, 63982, 63819 ADDENDUM ADDENDUM ADDENDUM ADDENDUM ADDENDUM ADDENDUM ADDENDUM ADDENDUM 07/30/2023 09:56 ADDENDUM 07/30/2023 09:56 ADDENDUM 07/30/2023 09:56 ADDENDUM 07/30/2023 09:56 ADDENDUM 03/01/2024 08:44 ADDENDUM 07/30/2023 09:56 PD-L1 (KEYTRUDA) IMMUNOHISTOCHEMICAL ANALYSIS FROM [facility] RESULTS: Tumor proportion score: 3% / Positive [facility] NGS Gene Fusion Panel QNS due to insufficient tumor present. Please see complete report in e-chart or EMR [facility] NGS REPORT FROM [facility] RESULT SUMMARY: CANCELLED TUMOR TYPE: Noon-small cell carcinoma CLINICAL INFORMATION: Left upper lung lobe mass showed CT- guided core biopsy showed non-small cell carcinoma, favor adenocarcinoma with mucinous differentiation (Testing performed on #[id number]) HISTOPATHOLOGIC REVIEW: Tumor is present, but cannot be accurately quantified, and comprises <10% of nuclei in sample. Please see complete report in e-chart or EMR
--- NOTE | 2023-05-01 | IMM_PTH ---
PATIENT: KAELYN DRUMMOND LOC: CT U#:[id number] AGE/SX: 67/F ROOM: RE05/01/[address]: Dr. Damion Winter MD : 1955 BED: DIS: 05/01/2023 SPEC #: [id number] RECD: 05/01/23 14:14 STATUS: VALERIO REQ #: [id number] RYDER: 05/01/23 00:[address]: Damion Winter V DEPT: IMMUNOHISTOCHEMISTRY RECD BY: Snehal Mera ENTERED: 05/01/23 14:18 SP TYPE: IMMUNO OTHR DR: Iris Clayton, LOSS PREVENTION AUDITOR-C Tissues: Left upper lobe of lung, NOS Procedures: RCC (add) NAPSIN A (add) CK20 (add) CK5-6 (add) CK7 (add) CK8 (add) HEP PAR (add) CT (add) TTF1 (add) Pankeratin (add) P40 (add) ER (initial) PHYSICIAN & INSTITUTION [address] [address] SPECIMEN INFORMATION: Tissue Source: Left upper lobe lung mass Clinical Info: Left upper lobe lung mass Specimen Number: [id number] CPT code: 91064, 57548 x11 METHODOLOGY: Deparaffinized sections of prefer/formalin-fixed tissue or PAP/DQ stained slides are incubated with monoclonal/polyclonal antibodies/oligonucleotide probes. Localization is made via biotin free immunoperoxidase method. Appropriate controls are performed and reacted as expected. Results on target cell population are indicated in the following table: RESULTS: ANTIBODY / CLONE RESULT ER (6F11) negative CT (1E2) negative AE1-3 (AE1/AE3/PCK26) positive CK7 (OV-TL12/30) positive CK8 (68tznuM65) positive CK20 (KS20.8) negative TTF-1 (8G7G3/1) positive Napsin A (Rabbit Polyclonal) positive HepPar (OCh1E5) positive, focal RCC (PN-15) negative CK5-6 (D5 & 1684) negative P40 (BC28) negative These tests were developed and their performance characteristics determined by [facility]. They may not have been cleared or approved by the U.S. Food and Drug Administration. The FDA has determined that such clearance or approval is not necessary. The above immunohistochemical/dualISH markers are ordered and reviewed by the Pathologist. INTERPRETATION: Left upper lobe lung mass, CT-guided core biopsy: Non-small cell carcinoma, favor adenocarcinoma. See comment. SJ:adrienne 05/02/2023 Comment: The IHC profile favors lung primary. Case has been reviewed in consultation with Dr. Quinones who concurs with the above diagnosis. IDC:[id number]
--- NOTE | 2023-05-01 07:43 | CT_ITS ---
PROCEDURE: CT GUIDED CORE NEEDLE BIOPSY OF A left upper lobe LUNG LESION INDICATION: Female, 67 years old. PULMONARY NODULE PHYSICIAN: Dr. Mayra Dao CONSENT: Written informed consent was obtained having explained the risks, benefits and alternatives in detail with the patient who accepted the risks and agreed to proceed. Laboratory review and clinical assessment was performed. CONSCIOUS SEDATION PROTOCOL: The Drugs used were: 2 mg Versed, IV., and 50 mcg Fentanyl, IV. The sedation time was: 25 minutes. Conscious sedation was started at 8:58 AM terminated at 9:23 AM. The conscious sedation protocol was independently monitored. RADIATION DOSAGE (If Supplied By Facility): CTDIvol = ( 25.74 ) mGy, DLP = ( 743.38 ) mGycm. Individualized dose optimization techniques were utilized. Individualized dose optimization techniques were used for this CT. TECHNIQUE: The patient was placed in the supine position. A noncontrast CT was performed to localize the lesion in the left upper lobe . The skin surface was prepped and draped in a sterile fashion. 1% lidocaine was used for local anesthesia. Using CT guidance, a 20-gauge coaxial biopsy device was advanced to the periphery of the lesion. A total of 6 core specimens were obtained. The specimens were placed in a formalin solution. A post procedure CT demonstrated no adverse sequelae or pneumothorax. The patient tolerated the procedure well without adverse event. A negative biopsy does not exclude malignancy. Further imaging or clinical followup based on patient condition and degree of clinical suspicion for malignancy. Suggest rebiopsy, if biopsy results do not match with clinical scenario. CT/Biopsy/Inj or Needle Placement IMPRESSION: 1. CT directed core needle biopsy of the left upper lobe pulmonary nodule using CT image guidance with image documentation as described. Pathology results are pending. 2. Conscious Sedation protocol utilized with independent monitoring. Electronically Signed: Claude Nunez MD at 9:57 EDT ,
[2023-05-01 08:00] LABS: Absolute Lymphocyte Count 1.69 X10^3/uL (0.83-4.51); Absolute Neutrophil Count 4.3 X10^3/uL (2.0-7.7); Basophil# 0.04 X10^3/uL; Basophil% 0.6 % (0-1); Eosinophil# 0.13 X10^3/uL; Eosinophils% 1.9 % (0-5); Hemoglobin 14.4 g/dL (12.0-15.0); Lymphocyte # 1.69 X10^3/ul (0.83-4.51); Lymphocyte % 24.7 % (19-41); Mean Corp Hgb Conc 32.7 g/dL (32-36); Mean Corpuscular Hgb 32.6 pg (27.0-32.0); Mean Corpuscular Volume 99.5 fL (81-99); Mean Platelet Vol. 9.2 fl (6.2-12.0); Monocyte# 0.69 X10^3/uL; Monocyte% 10.1 % (0-10); NRBC Flagged by Analyzer 0 % (0-5); Neutrophil # 4.25 X10^3/uL (2.7-7.7); Neutrophil % 62.1 % (47-70); Platelet Count 240 K/mm3 (150-450); RBC Distribution Width CV 12.8 % (11.6-14.6); RBC Distribution Width SD 47.4 fl (35.1-43.9); Red Blood Count 4.42 M/mm3 (4.2-5.4); White Blood Count 6.8 K/mm3 (4.4-11.0)
[2023-05-01 08:14] LABS: International Normalized Ratio 0.9; Prothrombin Time (Protime)PT. 12.4 SECONDS (11.7-14.9)
[2023-05-01 08:15] LABS: Partial Thromboplast Time 31.5 Seconds (24.1-36.2)
[2023-05-01] MEDS: 0.9% Normal Saline (250mL Bag) 250 ML 15 ML IV (08:57)
[2023-05-01] MEDS: Midazolam 2 MG/2 ML Syringe IV (08:58)
[2023-05-01] MEDS: fentaNYL 100 MCG/2 ML Ampul IV ×3 (09:00→09:51)
[2023-05-01] MEDS: Lidocaine 2% (20 ml mdv) 20 ML Vial INFILT (09:14)
--- NOTE | 2023-05-01 09:30 | RAD_ITS ---
STUDY: X-RAY CHEST REASON FOR EXAM: Female, 67 years old. Immediately post lung biopsy -- Immediately post lung biopsy TECHNIQUE: AP inspiration and expiration views. COMPARISON: Comparison is made with prior study dated February 05, 2021. FINDINGS: There is a tiny left apical pneumothorax seen on the expiratory views. RAD/Chest Insp/Exp 2 View IMPRESSION: Tiny left apical pneumothorax. Electronically Signed: Claude Nunez MD at 10:02 EDT ,
[2023-05-01] MEDS: Ketorolac 15 MG/ML Vial IV (11:04)
--- NOTE | 2023-05-01 11:36 | RAD_ITS ---
STUDY: X-RAY CHEST REASON FOR EXAM: Female, 67 years old. 2 hours post lung biopsy -- 2 hours post lung biopsy TECHNIQUE: AP inspiration and expiration views. COMPARISON: Comparison is made with prior study done earlier in the day. FINDINGS: Stable small left apical pneumothorax on the 2 hour post left lung biopsy radiographs. The patient is asymptomatic. RAD/Chest Insp/Exp 2 View IMPRESSION: Stable small left apical pneumothorax on the 2 hour post left lung biopsy radiographs. The patient is asymptomatic. Electronically Signed: Claude Nunez MD at 9:07 EDT ,
--- NOTE | 2023-05-27 09:30 | PET_ITS ---
EXAMINATION: FDG PET-CT INDICATIONS: A 67-year-old female with history of pulmonary nodularity. COMPARISON EXAMINATION: None available INDEX LESION SIZE SUV INTERPRETATION Left upper lung field, left upper lobe (n=1) 35.4-mm 3.6 Fulfills quantitative criteria for viable neoplasm, histopathologic investigation recommended TECHNIQUE: Following the intravenous administration of 14.2 mCi of F-18 deoxyglucose, multiplanar image acquisitions of the neck, chest, abdomen and pelvis to level of mid thigh, obtained at one hour post radiopharmaceutical administration contemporaneously interpreted with the current CT of the neck, chest, abdomen and pelvis, to level of mid thigh, dated 05/27/23 via coregistration reveals: HEIGHT:?62 inches?WEIGHT: 199 lbs. FINDINGS: Head/Neck: There is no evidence of abnormal increased glucose metabolism in the pharyngeal mucosal space, parapharyngeal space, bilateral-lateral and anterior neck, hypopharynx and distribution of the laryngeal structures. The visualized portion of the cerebral cortical-subcortical structures demonstrate symmetric and preserved glucose metabolism. CHEST: Increased FDG concentration is manifest in the left upper anteromedial lung field, left upper lobe. The calculated maximal standard uptake value is 3.6. The maximal axial diameter of the metabolic, morphologic abnormality is 35.4-mm. Pertinent chest CT findings are as follows. There are no additional parenchymal densities-nodules noted in the right and left hemithorax with quantitatively significant increased FDG concentration. There is atherosclerotic calcification defined in the thoracic aorta without evidence of dilatation-aneurysm formation. Coronary arterial calcification is observed. Scattered mediastinal soft tissue densities are ametabolic. Abdomen/Pelvis: Normal physiologic distribution of the radiopharmaceutical is apparent in the hepatic (3.8) and splenic parenchyma, both renal units, bladder and visualized intestinal tract. Diffuse radiopharmaceutical concentration is noted in all four quadrants of the abdomen and pelvis. Pertinent abdomen and pelvis CT findings are as follows. Bilateral inguinal and soft tissue densities are ametabolic. There is atherosclerotic calcification defined in the abdominal aorta without evidence of dilatation-aneurysm formation. Abdominal-pelvic arterial calcification is observed. Bilateral inguinal soft tissue densities are ametabolic. Skeletal: Degenerative changes are noted in the cervical, thoracic and lumbar spine without evidence of increased radiopharmaceutical concentration. PET/PET/CT Tumor Base -Thigh Init IMPRESSION: 1. ABNORMAL EXAMINATION INDICATIVE OF MALIGNANT VIABLE NEOPLASM. 2. Increased radiopharmaceutical concentration defined in the left hemithorax pulmonary parenchyma, left upper lobe fulfills quantitative criteria for malignant transformation. Histopathologic investigation is recommended. (Uli et al, Annals of Internal Medicine, 138:724, 2003). Electronic Signature Papo King D.O. Accurate Quantification of SUVs for this report are calculated using the exclusive [employer], (U.S. Patent No. [phone] [phone] B2 US [phone] [place] patent [id number] [phone] ). Standardization and correction of the FDG SUV metric exclusively available with [employer] intellectual property, allow for vendor non-specific objective quantitative sequential FDG PET-CT comparison and otherwise unobtainable optimization of the sensitivity and specificity of the examination. [email or web address] Electronically Signed: Papo King DO at 13:40 EDT ,
== END 2023-05-01 23:59 | disposition home or self-care (01) ==
PROVIDERS: Radiology Diagnostic Radiology; PCP Nurse Practitioner Family; Referring Provider Internal Medicine Pulmonary Disease; Visit Provider Internal Medicine Pulmonary Disease
DX: C34.12 Malignant neoplasm of upper lobe, left bronchus or lung (principal)
CPT/HCPCS: 32408; 36415; 71046; 77012; 85025; 85610; 85730; 88172; 88305; 88313; 88341; 88342; 99156; J7050; A4216; C2613

== ENCOUNTER 2023-06-11 12:57 | Inpatient (IN) | payer MEDICARE, SELFPAY ==
[2023-06-11 12:58] VITALS: BP 160/98; PULSE 92; RESP 16; TEMP 36.8; O2SAT 94; BMI 26.9
--- NOTE | 2023-06-11 17:03 | EX.ED.DYSGE1 ---
HPI History of Present Illness Chief Complaint: General Illness Narrative Narrative: 67-year-old female presenting with her concern for illness. She states she tested positive for COVID this morning. She does describe fevers, chills, body aches. She has a mild headache. Her reports earlier this morning that she was out of her mind. She was not acting right at all. He states this lasted only in the morning and now she seems to be back to her baseline. She states that she had 2 hours of chest pain earlier today and then came to the emergency room. She was triaged as COVID-patient with home COVID test positive. Patient states he does not currently have any chest pain. She took Tylenol this morning for a fever. No nausea. [facility] Medical History Abnormal gastrointestinal PET scan Adenomatous polyps Anemia Anxiety Atherosclerosis of coronary artery of [place] heart without angina pectoris Back pain Black tarry stools Bladder disease Cancer Cardiology follow-up encounter Claudication Dietary restriction Diverticulosis Essential (primary) hypertension Fatigue Gastritis History of echocardiogram History of edema History of stress test Hoarseness Hyperlipidemia Iron deficiency anemia Iron deficiency anemia due to chronic blood loss Left upper lobe pulmonary nodule Leg cramps Lung mass Marijuana use Nicotine dependence Obesity Peripheral vascular occlusive disease Rectal bleeding Rheumatoid arthritis Smoker Subdural hematoma Subdural hemorrhage Type 2 diabetes mellitus Urinary incontinence Wears dentures Wears glasses Home Medications oxybutynin chloride 15 mg tablet,extended release 24 hr 15 mg PO DAILY bladder 10/01/21 [History Last Taken Unknown] acetaminophen 500 mg tablet 1,000 mg PO Q6H PRN Pain 04/05/22 [History Last Taken Unknown] metformin 1,000 mg tablet 1,000 mg PO BID dm 10/01/22 [History Last Taken Unknown] lisinopril 20 mg tablet 20 mg PO DAILY bp #90 tabs 10/24/22 [Rx Last Taken Unknown] bisacodyl 5 mg tablet 5 mg PO QHS PRN constipation 01/29/23 [History Last Taken Unknown] cilostazol 100 mg tablet 100 mg PO BID 01/29/23 [History Last Taken Unknown] melatonin 5 mg tablet 5 mg PO HS PRN sleep 01/29/23 [History Last Taken Unknown] sennosides 8.6 mg tablet (senna) 8.6 mg PO DAILY PRN constipation 01/29/23 [History Last Taken Unknown] bupropion HCl 150 mg tablet,12 hr sustained-release 150 mg PO Q12H 06/11/23 [History Last Taken Unknown] nicotine 21 mg/24 hr daily transdermal patch 1 patch transdermal Q24H 06/11/23 [History Last Taken Unknown] Allergy/AdvReac Type Severity Reaction Status Date / Time oxycodone [From Percocet] Allergy Intermediate Itching Verified 05/01/23 08:12 Family History Sister Diabetes Breast cancer Brother Cancer throat Hypertension Surgical History History of angioplasty of peripheral vessel History of cholecystectomy History of coronary artery stent placement (10/10/15) History of esophagogastroduodenoscopy (EGD) History of hysterectomy History of left heart catheterization (10/09/15) Hx of colonoscopy Hx of heart artery stent S/P craniotomy S/P craniotomy Social History household members: none and other details: She has 2 sons who live locally and can help her and also has 2 sisters housing: apartment number of children: 2 current occupational status: employed 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 mary beth/nondenominational: Yazidism seatbelt use: always do you feel safe at home: Yes ROS ROS ED Constitutional Constitutional ED: Reports chills and fever(s); Denies sweats Eyes Eyes: Denies blurry vision or change in vision ENT ENT ED: Denies ear pain or sore throat Cardiovascular Cardiovascular: Denies chest pain, palpitations or racing heartbeat Respiratory/Chest Respiratory/Chest: Denies cough, dyspnea or sputum Gastrointestinal Gastrointestinal: Denies abdominal pain, constipation, diarrhea, nausea or vomiting Genitourinary Genitourinary ED: Denies dysuria, hematuria or urinary frequency Musculoskeletal Musculoskeletal: Denies arthralgias, myalgias or neck pain Integumentary Denies abscess, Abrasions or rash Neurologic Neurologic: Denies paresthesias or weakness Psychiatric Psychiatric: Denies anxiety, depression, suicidal ideation or suicidal thoughts Endocrine Endocrinology: Denies polydipsia or polyuria EXAM Physical Exam Const Vital Signs: 06/11/23 12:58 06/11/23 15:14 06/11/23 17:07 Temperature 98.2 F Temperature Source Temporal Pulse Rate 92 Respiratory Rate 16 Respiratory Effort Normal Respiratory Pattern Normal Blood Pressure 160/98 H Blood Pressure Mean 118 Pulse Ox 94 Oxygen Delivery Method Room Air Room Air 06/11/23 18:46 Temperature Temperature Source Pulse Rate 79 Respiratory Rate 16 Respiratory Effort Respiratory Pattern Blood Pressure 103/57 L Blood Pressure Mean 72 Pulse Ox 92 Oxygen Delivery Method Room Air Positive well nourished HEENT Reports moist mucous membranes Eyes PERRL and EOMs intact bilaterally Chest Wall inspection of chest normal Resp normal respiratory effort and clear to auscultation bilaterally Auscultation: Negative for rales, rhonchi or wheezes Cardio regular rate and regular rhythm GI normal to inspection, nondistended, normoactive bowel sounds Back/Spine no CVA tenderness Neuro oriented x3, CN's II-XII intact bilaterally and no sensory deficits noted Sensorium / Orientation: alert MDM MDM MDM Narrative Medical decision making narrative: 67-year-old female presenting with, chills, body aches. She also reports that she had some chest pain earlier today which lasted about 2 hours. It is currently gone. Her reports that she was out of her mind this morning. She is back to her baseline. She does have a history of nontraumatic subdural hematoma. This is on the differential as well as subarachnoid hemorrhage given her history. CT brain will be obtained. Since he is having symptoms of viral syndrome she will be tested for COVID and influenza. She is concerned that her test at home was . On the differential also is acute coronary syndrome, CHF, pneumonia. Considered PE however patient PERC negative. CBC shows no leukocytosis with white blood cell count of 6.3. Hemoglobin stable 15.4. Platelets are normal at 234. INR 1.2. Renal function and electrolytes within normal limits. COVID-positive. Chest x-ray my interpretation shows suprahilar mass and radiologist services and agrees. The patient knows of this. But given her chest pain and her troponin, 816 I did order CTA to rule out PE and this was negative for PE it does show enlarging mass with spiculation. No dissection is noted. The brain was negative. Started on heparin drip. She was given aspirin. Patient was admitted in stable condition. Impression: 1. COVID-19 2. NSTEMI 3. Altered mental status resolved Lab Data Attestation: I reviewed the patient's lab results. Labs: Laboratory Results - last 24 hr 06/11/23 06/11/23 17:03 18:40 WBC 6.3 RBC 4.70 Hgb 15.4 H Hct 45.3 MCV 96.4 MCH 32.8 H MCHC 34.0 RDW Std Deviation 48.1 H RDW Coeff of Martha 13.4 Plt Count 234 MPV 9.8 Immature Gran % (Auto) 0.800 Neut % (Auto) 63.2 Lymph % (Auto) 17.5 L Harrison % (Auto) 17.4 H Eos % (Auto) 0.5 Baso % (Auto) 0.6 Absolute Neuts (auto) 4.0 Absolute Lymphs (auto) 1.11 Nucleated RBC % 0 PT 14.9 INR 1.2 APTT 35.8 Sodium 132 L Potassium 4.1 Chloride 99 Carbon Dioxide 27.0 Anion Gap 6 BUN 12 Creatinine 0.92 Estim Creat Clear Calc 46.29 Est GFR (MDRD) Af Amer 78 Est GFR (MDRD) Non-Af 64 BUN/Creatinine Ratio 13.0 Glucose 194 H Calcium 9.0 Troponin I High Sens 816 H* Radiography Diagnostic Testing: Clinical Impression(s) from Imaging Studies Brain CT 06/11/23 17:22 IMPRESSION: Age-related and postsurgical changes of the brain. Electronically Signed: Gordon Saab DO at 17:51 EDT , Chest X-Ray 06/11/23 17:22 IMPRESSION: Masslike left suprahilar opacity. Electronically Signed: Gordon Saab DO at 17:53 EDT , Chest CTA 06/11/23 18:10 IMPRESSION: No demonstrated pulmonary embolism or arterial dissection. Left upper lobe spiculated mass, slightly larger than on previous study. Electronically Signed: Gordon Saab DO at 18:56 EDT Reading Location ID and State: [facility] / [place] Tel [phone], Service support , Discharge Plan Disposition Disposition: Acute Care Hospital [facility] Discharge Date/Time: 06/11/23 19:45
[2023-06-11] MEDS: Acetaminophen 500 MG Tablet 1000 MG PO (17:16)
--- NOTE | 2023-06-11 17:22 | CT_ITS ---
STUDY: CT BRAIN WITHOUT CONTRAST REASON FOR EXAM: Female, 67 years old. headache/confusion RADIATION DOSAGE (If Supplied By Facility): CTDIvol = ( 44.99 ) mGy, DLP = ( 863.60 ) mGycm TECHNIQUE: Transaxial CT imaging of the brain was performed without administration of intravenous contrast material. Individualized dose optimization techniques were used for this CT. COMPARISON: April 23, 2022 FINDINGS: Normal soft tissue structures. Prior brain surgery with postsurgical changes of the calvarium. Normal size ventricles and extra-axial spaces for the patient''s age. 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 Bilateral white matter microangiopathic ischemic changes of the cerebral hemispheres. Normal basal ganglia and thalami. Normal brainstem. Normal cerebellum. There is no intracranial hemorrhage. There are no findings of an acute ischemic infarction. Normal visualized paranasal sinuses. CT/Brain/Head without Contrast IMPRESSION: Age-related and postsurgical changes of the brain. Electronically Signed: Gordon Saab DO at 17:51 EDT ,
--- NOTE | 2023-06-11 17:22 | RAD_ITS ---
INDICATION: chest pain -- -- TESTED POSITIVE FOR COVID YESTERDAY, COMPLAINS OF DYSPNEA, DIZZINESS, WEAKNESS, COUGH. EXAMINATION/TECHNIQUE: X-RAY - XR Chest 1 View COMPARISON: FINDINGS: LINES/DEVICES: None. LUNGS: There is a masslike left suprahilar opacity. No pneumothorax. MEDIASTINUM AND CARDIOVASCULAR STRUCTURES: Cardiac silhouette not enlarged. Central airways and mediastinal contour are unremarkable. BONES AND SOFT TISSUES: Degenerative vertebral changes. RAD/Chest 1 View (Portable) IMPRESSION: Masslike left suprahilar opacity. Electronically Signed: Gordon Saab DO at 17:53 EDT ,
[2023-06-11 17:30] LABS: Absolute Lymphocyte Count 1.11 X10^3/uL (0.83-4.51); Basophil# 0.04 X10^3/uL; Basophil% 0.6 % (0-1); Eosinophil# 0.03 X10^3/uL; Eosinophils% 0.5 % (0-5); Hematocrit 45.3 % (37-47); Hemoglobin 15.4 g/dL (12.0-15.0); Lymphocyte # 1.11 X10^3/ul (0.83-4.51); Lymphocyte % 17.5 % (19-41); Mean Corpuscular Hgb 32.8 pg (27.0-32.0); Mean Corpuscular Volume 96.4 fL (81-99); Mean Platelet Vol. 9.8 fl (6.2-12.0); Monocyte% 17.4 % (0-10); NRBC Flagged by Analyzer 0 % (0-5); Neutrophil % 63.2 % (47-70); Platelet Count 234 K/mm3 (150-450); RBC Distribution Width CV 13.4 % (11.6-14.6); RBC Distribution Width SD 48.1 fl (35.1-43.9); White Blood Count 6.3 K/mm3 (4.4-11.0)
[2023-06-11 18:10] LABS: Anion Gap 6 (5-15); BUN 12 mg/dL (7-18); Chloride 99 mmol/L (98-107); Creatinine, Serum 0.92 mg/dL (0.55-1.02); EST Glomerular Filtration Rate 64 mL/min (>60); Est Glom Filt Rate - Afr Amer 78 mL/min (>60); Estimated Creatinine Clearance 46.29 ml/min; Glucose 194 mg/dL (74-106); Potassium 4.1 mmol/L (3.5-5.1); Sodium Level 132 mmol/L (136-145); Troponin-I HS (w/2H Reflex) 816 pg/mL (3.0-54.0)
--- NOTE | 2023-06-11 18:10 | CT_ITS ---
STUDY: CTA CHEST REASON FOR EXAM: Female, 67 years old. pe study RADIATION DOSAGE (If Supplied By Facility): CTDIvol = ( 12.2 ) mGy, DLP = ( 479.98 ) mGycm TECHNIQUE: The examination was performed with the intravenous administration of IV 100mL [id number]-370. Post-processing of the angiographic images was performed, with multiplanar reformation and 3D reconstruction. Individualized dose optimization techniques were used for this CT. COMPARISON: April 01, 2023 FINDINGS: Normal enhancement of the main pulmonary artery and right and left pulmonary arteries. Normal enhancement of the bilateral peripheral pulmonary arteries. There is no demonstrated pulmonary embolism. Normal thoracic aorta and visualized great vessels. There is no demonstrated aortic dissection. Normal heart and pericardium. Normal mediastinum. Normal hilar regions. Normal visualized trachea and bronchi. The lungs are well expanded. There is a 3.9 x 2.2 cm spiculated left upper lobe mass, larger than on previous study. Normal pleura. Normal chest wall structures. Normal osseous structures. Normal visualized upper abdomen. CT/CTA Chest W/WO Contrast IMPRESSION: No demonstrated pulmonary embolism or arterial dissection. Left upper lobe spiculated mass, slightly larger than on previous study. Electronically Signed: Gordon Saab DO at 18:56 EDT ,
[2023-06-11] MEDS: Heparin Injection (Vial) 5,000 UNIT/ML VIAL 4000 UNIT IV (18:39)
[2023-06-11] MEDS: HEPARIN/D5w 25,000 UNITS 25,000 UNITS/250 ML IV.SOLN. 8 UNITS CONT INF (18:43)
[2023-06-11 18:46] VITALS: BP 103/57; PULSE 79; RESP 16; O2SAT 92
[2023-06-11 19:12] LABS: International Normalized Ratio 1.2; Prothrombin Time (Protime)PT. 14.9 SECONDS (11.7-14.9)
[2023-06-11 19:14] LABS: Partial Thromboplast Time 35.8 Seconds (24.1-36.2)
[2023-06-11 19:20] LABS: Reflex Troponin-HS? (from REC) Y
--- NOTE | 2023-06-11 19:25 | PCM.HP.STD ---
HPI - General General Date of Admission: 06/11/23 Date of Service: 06/11/23 Chief Complaint: Chest pain HPI Narrative KAELYN DRUMMOND, is a 67 F with a significant history of CAD status post stent about 6 years ago; traumatic subdural hematoma; and small cell lung cancer who presents to emergency department with nonradiating tight substernal chest pain that started on the same day of presentation. Patient denies any nausea, vomiting or difficulty breathing with the chest pain symptoms. On the day of presentation her symptoms actually started with confusion. Family and patient tested positive for COVID and the patient was positive. Subsequently patient came to the emergency department. At the time of examination by hospitalist patient chest pain had disappeared. Patient received aspirin and heparin at the emergency department since her high sensitive troponin came back to be elevated. Imaging showed enlarging spiculated lung mass. [facility] Medical History Abnormal gastrointestinal PET scan Adenomatous polyps Anemia Anxiety Atherosclerosis of coronary artery of quechan heart without angina pectoris Back pain Black tarry stools Bladder disease Cancer Cardiology follow-up encounter Claudication Dietary restriction Diverticulosis Essential (primary) hypertension Fatigue Gastritis History of echocardiogram History of edema History of stress test Hoarseness Hyperlipidemia Iron deficiency anemia Iron deficiency anemia due to chronic blood loss Left upper lobe pulmonary nodule Leg cramps Lung mass Marijuana use Nicotine dependence Obesity Peripheral vascular occlusive disease Rectal bleeding Rheumatoid arthritis Smoker Subdural hematoma Subdural hemorrhage Type 2 diabetes mellitus Urinary incontinence Wears dentures Wears glasses Home Medications oxybutynin chloride 15 mg tablet,extended release 24 hr 15 mg PO DAILY bladder 10/01/21 [History Last Taken Unknown] acetaminophen 500 mg tablet 1,000 mg PO Q6H PRN Pain 04/05/22 [History Last Taken Unknown] metformin 1,000 mg tablet 1,000 mg PO BID dm 10/01/22 [History Last Taken Unknown] lisinopril 20 mg tablet 20 mg PO DAILY bp #90 tabs 10/24/22 [Rx Last Taken Unknown] bisacodyl 5 mg tablet 5 mg PO QHS PRN constipation 01/29/23 [History Last Taken Unknown] cilostazol 100 mg tablet 100 mg PO BID 01/29/23 [History Last Taken Unknown] melatonin 5 mg tablet 5 mg PO HS PRN sleep 01/29/23 [History Last Taken Unknown] sennosides 8.6 mg tablet (senna) 8.6 mg PO DAILY PRN constipation 01/29/23 [History Last Taken Unknown] bupropion HCl 150 mg tablet,12 hr sustained-release 150 mg PO Q12H 06/11/23 [History Last Taken Unknown] nicotine 21 mg/24 hr daily transdermal patch 1 patch transdermal Q24H 06/11/23 [History Last Taken Unknown] Allergy/AdvReac Type Severity Reaction Status Date / Time oxycodone [From Percocet] Allergy Intermediate Itching Verified 05/01/23 08:12 Family History Sister Diabetes Breast cancer Brother Cancer throat Hypertension Surgical History History of angioplasty of peripheral vessel History of cholecystectomy History of coronary artery stent placement (10/10/15) History of esophagogastroduodenoscopy (EGD) History of hysterectomy History of left heart catheterization (10/09/15) Hx of colonoscopy Hx of heart artery stent S/P craniotomy S/P craniotomy Social History household members: none and other details: She has 2 sons who live locally and can help her and also has 2 sisters housing: apartment number of children: 2 current occupational status: employed current occupation: [employer]r [employer] at [employer] and she works 4 days a week Smoking Status: Former smoker Tobacco: How many years used: 50 second hand exposure: Yes alcohol intake: current details: Tells me that she has not had a drink since the craniotomy in October 2021 substance use type: other details: Has used marijuana in the past but denies current use. mary beth/amish: Taoism seatbelt use: always do you feel safe at home: Yes ROS ROS Narrative Pertinent positives and pertinent negatives as noted in HPI. All other systems were reviewed and are negative Vital Signs Vital Signs Vital Signs: 06/11/23 12:58 06/11/23 15:14 06/11/23 17:07 Temperature 98.2 F Temperature Source Temporal Pulse Rate 92 Respiratory Rate 16 Respiratory Effort Normal Respiratory Pattern Normal Blood Pressure 160/98 H Blood Pressure Mean 118 Pulse Ox 94 Oxygen Delivery Method Room Air Room Air 06/11/23 18:46 Temperature Temperature Source Pulse Rate 79 Respiratory Rate 16 Respiratory Effort Respiratory Pattern Blood Pressure 103/57 L Blood Pressure Mean 72 Pulse Ox 92 Oxygen Delivery Method Room Air Weight Weight: 66.678 kg Body Mass Index (BMI) 26.9 Physical Exam Narrative Physical exam: General: Well-nourished, well-developed. Head: Normocephalic, atraumatic, no tenderness Eyes: Vision is grossly intact. EOMI ENT, no trauma, moist mucous membranes, no rhinorrhea Neck: Nontender, No thyromegaly. CVS: Regular rate and rhythm. S1-S2 present. No murmur, gallop or rub. Respiratory : clear to auscultation bilaterally, chest wall nontender Abdomen: Soft, nontender, nondistended, normal bowel sounds, no masses : Deferred Back: Nontender, no CVA tenderness, no midline spinal tenderness, deformities, step-offs Extremities: Nontender full range of motion, no trauma Skin: Normal color, no trauma, abrasions Neuro: Alert, oriented, cranial nerves II through XII grossly intact. Psychiatry: Normal mood. Normal affect. Not depressed. Not anxious. Results Lab / Micro Data Attestation: I reviewed the patient's lab results. 06/12/23 05:40 06/12/23 05:40 Labs: Laboratory Results - last 24 hr 06/11/23 17:03: WBC 6.3, RBC 4.70, Hgb 15.4 H, Hct 45.3, MCV 96.4, MCH 32.8 H, MCHC 34.0, RDW Std Deviation 48.1 H, RDW Coeff of Martha 13.4, Plt Count 234, MPV 9.8, Immature Gran % (Auto) 0.800, Neut % (Auto) 63.2, Lymph % (Auto) 17.5 L, Alexander % (Auto) 17.4 H, Eos % (Auto) 0.5, Baso % (Auto) 0.6, Absolute Neuts (auto) 4.0, Absolute Lymphs (auto) 1.11, Nucleated RBC % 0, Sodium 132 L, Potassium 4.1, Chloride 99, Carbon Dioxide 27.0, Anion Gap 6, BUN 12, Creatinine 0.92, Estim Creat Clear Calc 46.29, Est GFR (MDRD) Af Amer 78, Est GFR (MDRD) Non-Af 64, BUN/Creatinine Ratio 13.0, Glucose 194 H, Calcium 9.0, Troponin I High Sens 816 H* 06/11/23 18:40: PT 14.9, INR 1.2, APTT 35.8 Micro: Microbiology 06/11/23 15:10 Nasal Secretion SARS-CoV-2 & FLU Antigen (Rapid) - Final SARS-CoV-2 (COVID 19) Radiology Impression Brain CT 06/11/23 17:22 IMPRESSION: Age-related and postsurgical changes of the brain. Electronically Signed: Gordon Saab DO at 17:51 EDT , Chest X-Ray 06/11/23 17:22 IMPRESSION: Masslike left suprahilar opacity. Electronically Signed: Gordon Saab DO at 17:53 EDT , Chest CTA 06/11/23 18:10 IMPRESSION: No demonstrated pulmonary embolism or arterial dissection. Left upper lobe spiculated mass, slightly larger than on previous study. Electronically Signed: Gordon Saab DO at 18:56 EDT , Assessment & Plan Assessment/Plan (1) NSTEMI, initial episode of care: (2) COVID-19: (3) Encephalopathy acute: PLAN: Plan NSTEMI Chest pain with initial high-sensitivity troponin of 816. Trend high-sensitivity troponin Place on a monitored bed at progressive care unit Impression of chest x-ray by radiologist: Masslike left suprahilar opacity. Chest x-ray was independently interpreted: I agree with radiology interpretation . Actual EKG tracing was independently interpreted. Sinus rhythm with no ST elevation. ASA 81 mg p.o. daily ordered SL NTG 0.4 mg prn as needed for chest pain ordered Morphine as needed for pain ordered We will check lipid panel. Stat EKG as needed for chest pain Discussed case with Dr. Nye emergency department physician. With NSTEMI patient will be admitted; and see cardiology for possible heart cath. Cardiology consulted. COVID-19 infection We will put patient on enhanced droplet precautions. Diabetes mellitus Patient with hyperglycemia on presentation Home metformin held. Monitor Accu-Cheks Correction scale insulin ordered. History of a traumatic brain injury Decision to continue heparin drip or not continue heparin drip was considered. In the setting of NSTEMI heparin drip that was started from the emergency department was continued. Clinical monitoring. SONIA Mild SONIA On presentation creatinine was 0.92. Creatinine baseline is about 0.6. Gentle IV hydration. Avoid nephrotoxic's. Home Lisinopril held. Trend BMP Acute encephalopathy from COVID 19 Resolved. Small cell lung cancer Chest CTA showed left upper lobe spiculated mass which per radiologist is slightly larger than previous study. Patient follows up with Dr. Winter. And is supposed to follow-up with oncology. The process has been started DVT prophylaxis: Patient started on heparin drip for non-STEMI. Time spent in the patient's overall evaluation,decision-making process, review of diagnostic data, adjustment of management, discussion with other providers, nursing and ancillary staff involved in patient's care documentation, 70 minutes. Charges/Coding Visit Charges Inpatient E&M: 43229 Init Hosp L3
[2023-06-11 19:40] VITALS: BP 115/67
[2023-06-11 19:53] VITALS: BMI 34.7
[2023-06-11 20:00] VITALS: BP 118/75; PULSE 82; RESP 17; TEMP 37.2; O2SAT 95
[2023-06-11 20:23] LABS: Troponin-I HS 848 pg/mL (3.0-54.0)
[2023-06-11 20:25] VITALS: O2SAT 96
[2023-06-11 20:30] VITALS: BP 118/75; PULSE 82; RESP 17; TEMP 37.2; O2SAT 95
[2023-06-11] MEDS: Cilostazol 50 MG Tablet 100 MG PO (21:03)
[2023-06-11] MEDS: buPROPion (SR) 150 MG Tablet.SA PO (21:03)
[2023-06-11] MEDS: 0.9% Normal Saline (1000mL) 1,000 ML 75 ML IV (21:03)
[2023-06-11] MEDS: Insulin Lispro 100 UNIT/ML INSULN.PEN SC (23:08)
[2023-06-11 23:56] LABS: Troponin-I HS 838 pg/mL (3.0-54.0)
[2023-06-12 01:17] LABS: Partial Thromboplast Time 63.9 Seconds (24.1-36.2)
[2023-06-12 02:00] VITALS: BP 120/84; PULSE 90; RESP 15; TEMP 37.1; O2SAT 93
[2023-06-12 05:49] LABS: Absolute Lymphocyte Count 0.86 X10^3/uL (0.83-4.51); Absolute Neutrophil Count 2.3 X10^3/uL (2.0-7.7); Basophil# 0.03 X10^3/uL; Basophil% 0.8 % (0-1); Hemoglobin 14.6 g/dL (12.0-15.0); Lymphocyte # 0.86 X10^3/ul (0.83-4.51); Lymphocyte % 21.6 % (19-41); Mean Corp Hgb Conc 33.2 g/dL (32-36); Mean Corpuscular Hgb 31.9 pg (27.0-32.0); Mean Corpuscular Volume 96.1 fL (81-99); Mean Platelet Vol. 8.9 fl (6.2-12.0); Monocyte# 0.74 X10^3/uL; Monocyte% 18.6 % (0-10); NRBC Flagged by Analyzer 0 % (0-5); Neutrophil % 57.7 % (47-70); Platelet Count 190 K/mm3 (150-450); RBC Distribution Width CV 13.5 % (11.6-14.6); RBC Distribution Width SD 47.7 fl (35.1-43.9); Red Blood Count 4.58 M/mm3 (4.2-5.4)
[2023-06-12] MEDS: Insulin Lispro 100 UNIT/ML INSULN.PEN SC ×4 (05:53→20:24)
--- NOTE | 2023-06-12 05:55 | ECHOD_ITS ---
Reason For Study: CP Procedure This was a 2D Doppler, Color Flow transthoracic echocardiogram. The study was technically difficult. Exam performed portable in ICU/CCU. The exam was abbreviated due to the COVID 19 protocol. Left Ventricle Normal size and thickness. The left ventricular ejection fraction is 60 %. Posterior basal and lateral basal hypokinesis. Right Ventricle Normal right ventricle. Atria There is moderate biatrial dilatation. Mitral Valve Trivial mitral valve insufficiency. Tricuspid Valve Trivial tricuspid valve insufficiency. Unable to estimate RV systolic pressure due to insufficient tricuspid regurgitant envelope. Aortic Valve Trisinus/trileaflet aortic valve. Pulmonic Valve The pulmonic valve is not well visualized. Great Vessels The aortic root is not well visualized. Pericardium/Pleural Trivial pericardial effusion. Epicardial fat. MMode/2D Measurements & Calculations LVIDd: 4.6 cm IVSd: 0.88 cm LA dimension: 4.4 cm LVIDs: 3.6 cm LVPWd: 0.85 cm FS: 21.7 % LAV(MOD-bp): 37.2 ml LA A4 area: 16.7 cm2 RA A4 area: 16.9 cm2 LAV(MOD-bp) Indexed: 19.9 ml/m2 LAV(MOD-sp2): 32.2 ml LAV(MOD-sp4): 42.7 ml TAPSE: 2.1 cm Time Measurements MV dec time: 0.19 sec Doppler Measurements & Calculations MV E max dominick: 58.9 cm/sec Lat Peak E' Dominick: 6.6 cm/sec Med Peak E' Dominick: 7.3 cm/sec MV A max dominick: 98.6 cm/sec E/E' lat: 9.0 E/E' med: 8.0 MV E/A: 0.60 Ao V2 max: 201.0 cm/sec LV V1 max: 128.2 cm/sec PA V2 max: 112.2 cm/sec Ao max P.2 mmHg LV V1 max P.6 mmHg Ao V2 mean: 118.6 cm/sec LV V1 mean P.0 mmHg Ao mean P.9 mmHg LV V1 mean: 76.8 cm/sec Ao V2 VTI: 24.3 cm LV V1 VTI: 21.6 cm AV (velocity ratio): 0.89 ECHO/Echo Complete Interpretation Summary The study was technically difficult. The left ventricular ejection fraction is 60 %. Posterior basal and lateral basal hypokinesis. There is moderate biatrial dilatation. Ordering Physician: Nic Caraballo Performed By: Ed Cooper RCS
[2023-06-12 06:13] LABS: Bedside Glucose 198 mg/dL (74-106)
[2023-06-12 06:40] LABS: Anion Gap 8 (5-15); BUN 11 mg/dL (7-18); BUN/Creat Ratio 14.8 RATIO (10-20); Calcium,Total 8.2 mg/dL (8.5-10.1); Chloride 102 mmol/L (98-107); Cholesterol 133 mg/dL (200); Creatinine, Serum 0.74 mg/dL (0.55-1.02); EST Glomerular Filtration Rate 83 mL/min (>60); Est Glom Filt Rate - Afr Amer 100 mL/min (>60); Estimated Creatinine Clearance 42.59 ml/min; Glucose 201 mg/dL (74-106); High Density Lipoprotein 41 mg/dL; Potassium 3.7 mmol/L (3.5-5.1); Sodium Level 134 mmol/L (136-145); Triglycerides 129 mg/dL; Very Low Density Lipoprotein 26 mg/dL (5-40)
--- NOTE | 2023-06-12 06:53 | PCM.PN.HOSP ---
Subjective Subjective Pt continues to have chest pain, denies any problems with her breathing Objective Data Objective Data Vital Signs: Vital Signs Temp Pulse Resp BP Pulse Ox O2 Del Method O2 Flow Rate 98.8 F 90 15 120/84 H 93 Room Air 2 06/12/23 02:00 06/12/23 02:00 06/12/23 02:00 06/12/23 02:00 06/12/23 02:00 06/12/23 02:00 06/11/23 20:30 Oxygen Flow Rate (L/min) 2 Oxygen Delivery Method Room Air Weight: 86 kg Body Mass Index (BMI) 34.7 Intake & Output: Intake and Output for Last 24 Hours 06/10/23 06/11/23 06/12/23 23:59 23:59 23:59 Intake Total 57.47 / 57.47 Balance 57.47 / 57.47 Lab / Micro Data 06/12/23 05:40 06/12/23 05:40 Labs: Laboratory Results - last 24 hr 06/11/23 17:03: WBC 6.3, RBC 4.70, Hgb 15.4 H, Hct 45.3, MCV 96.4, MCH 32.8 H, MCHC 34.0, RDW Std Deviation 48.1 H, RDW Coeff of Martha 13.4, Plt Count 234, MPV 9.8, Immature Gran % (Auto) 0.800, Neut % (Auto) 63.2, Lymph % (Auto) 17.5 L, Barbour % (Auto) 17.4 H, Eos % (Auto) 0.5, Baso % (Auto) 0.6, Absolute Neuts (auto) 4.0, Absolute Lymphs (auto) 1.11, Nucleated RBC % 0, Sodium 132 L, Potassium 4.1, Chloride 99, Carbon Dioxide 27.0, Anion Gap 6, BUN 12, Creatinine 0.92, Estim Creat Clear Calc 46.29, Est GFR (MDRD) Af Amer 78, Est GFR (MDRD) Non-Af 64, BUN/Creatinine Ratio 13.0, Glucose 194 H, Calcium 9.0, Troponin I High Sens 816 H* 06/11/23 18:40: PT 14.9, INR 1.2, APTT 35.8 06/11/23 19:40: Troponin I High Sens 848 H* 06/11/23 23:00: Troponin I High Sens 838 H* 06/12/23 00:45: APTT 63.9 H 06/12/23 05:39: POC Glucose 198 H 06/12/23 05:40: WBC 4.0 L, RBC 4.58, Hgb 14.6, Hct 44.0, MCV 96.1, MCH 31.9, MCHC 33.2, RDW Std Deviation 47.7 H, RDW Coeff of Martha 13.5, Plt Count 190, MPV 8.9, Immature Gran % (Auto) 1.300 H, Neut % (Auto) 57.7, Lymph % (Auto) 21.6, Barbour % (Auto) 18.6 H, Eos % (Auto) 0.0, Baso % (Auto) 0.8, Absolute Neuts (auto) 2.3, Absolute Lymphs (auto) 0.86, Nucleated RBC % 0, Sodium 134 L, Potassium 3.7, Chloride 102, Carbon Dioxide 24.0, Anion Gap 8, BUN 11, Creatinine 0.74, Estim Creat Clear Calc 42.59, Est GFR (MDRD) Af Amer 100, Est GFR (MDRD) Non-Af 83, BUN/Creatinine Ratio 14.8, Glucose 201 H, Calcium 8.2 L, Triglycerides 129, Cholesterol 133, LDL Cholesterol 66, VLDL Cholesterol 26, HDL Cholesterol 41 Micro: Microbiology 06/11/23 15:10 Nasal Secretion SARS-CoV-2 & FLU Antigen (Rapid) - Final SARS-CoV-2 (COVID 19) Radiography Diagnostic Testing: Radiology Impression Brain CT 06/11/23 17:22 IMPRESSION: Age-related and postsurgical changes of the brain. Electronically Signed: Gordon Saab DO at 17:51 EDT , Chest X-Ray 06/11/23 17:22 IMPRESSION: Masslike left suprahilar opacity. Electronically Signed: Gordon Saab DO at 17:53 EDT , Chest CTA 06/11/23 18:10 IMPRESSION: No demonstrated pulmonary embolism or arterial dissection. Left upper lobe spiculated mass, slightly larger than on previous study. Electronically Signed: Gordon Saab DO at 18:56 EDT , Physical Exam Narrative General: Alert, oriented, no apparent distress HEENT: Atraumatic, normocephalic Eyes: Anicteric, normal conjunctiva, extraocular movements grossly intact Neck: Supple Respiratory: Somewhat diminished at the bases, normal respiratory effort Cardiovascular: Regular rate and rhythm GI: Soft, nontender, nondistended Extremities: No edema Musculoskeletal: Moving all extremities Neuro: No overt focal neurological deficits Skin: No rashes appreciated Psych: Cooperative Assessment & Plan Assessment/Plan (1) NSTEMI, initial episode of care: (2) COVID-19: (3) Encephalopathy acute: PLAN: Plan #Nstemi -Unclear type I vs type II -Did have chest pain and troponin 816 up trended to 848 before downtrending again to 838 -CTA on presentation no PE or dissection -Echocardiogram ordered -Patient on heparin drip -Cardiology consulted for possible intervention -Continue #COVID-19 infection -Not hypoxic and not patient's presenting complaint or concern -Does not have indication for additional medications at this time, continue supportive care, not on O2 supplementation or having any breathing complaints #Left upper lobe mass -Follows with oncology -On CT left upper lobe spiculated mass was slightly larger than on previous study at 3.9 x 2.2 -We will need follow-up oncology on DC. #DVT ppx: Heparin drip Gwendolyn Petersen MD Time spent in the patient's overall evaluation,decision-making process, review of diagnostic data, adjustment of management, discussion with other providers, nursing nursing and ancillary staff involved in patient's care documentation, 35 minutes Charges/Coding Visit Charges Inpatient E&M: 69580 Subs Hosp L2
[2023-06-12 07:15] VITALS: O2SAT 93
[2023-06-12 09:25] VITALS: BP 114/71; PULSE 79; RESP 17; TEMP 37.7; O2SAT 95
[2023-06-12] MEDS: buPROPion (SR) 150 MG Tablet.SA PO ×2 (09:44→20:25)
[2023-06-12] MEDS: Cilostazol 50 MG Tablet 100 MG PO (09:44)
[2023-06-12] MEDS: Tolterodine Tartrate 4 MG CAP.SA PO (09:44)
[2023-06-12] MEDS: 0.9% Normal Saline (1000mL) 1,000 ML 75 ML IV ×2 (09:44→20:31)
[2023-06-12] MEDS: Aspirin E.C. 81 MG Tablet PO (09:44)
--- NOTE | 2023-06-12 09:54 | PCM.CONS.C ---
Assessment & Plan Assessment/Plan (1) NSTEMI, initial episode of care: PLAN: NSTEMI in the setting of COVID-19 infection. Continue aspirin. Start on clopidogrel. Stop cilostazol. Check echocardiogram. Start on nitrates. Troponin elevated but no significant upward or downward trend. Will repeat. (2) Coronary artery disease: PLAN: History of stent to the left circumflex in 2016. Aspirin. Plavix. Statins. (3) Diabetes: PLAN: As per internal medicine. (4) COVID-19: PLAN: As per internal medicine. (5) Peripheral arterial disease: PLAN: Aspirin and Plavix. HPI Consult Data Date of Consult: 06/12/23 HPI Narrative Reason for Consultation: Elevated troponin HPI Narrative: This patient presented to the emergency room yesterday with fever, chills and myalgias. She tested at home and was confirmed as COVID-positive. Also had a 2-hour episode of right-sided chest discomfort yesterday. Her troponins were checked here in the hospital and these were noted to be elevated. Patient has history of coronary artery disease in the past with stent to the left circumflex in 2016. Per patient, her previous anginal symptoms were throat tightness. [facility] Medical History Abnormal gastrointestinal PET scan Adenomatous polyps Anemia Anxiety Atherosclerosis of coronary artery of [place] heart without angina pectoris Back pain Black tarry stools Bladder disease Cancer Cardiology follow-up encounter Claudication Dietary restriction Diverticulosis Essential (primary) hypertension Fatigue Gastritis History of echocardiogram History of edema History of stress test Hoarseness Hyperlipidemia Iron deficiency anemia Iron deficiency anemia due to chronic blood loss Left upper lobe pulmonary nodule Leg cramps Lung mass Marijuana use Nicotine dependence Obesity Peripheral vascular occlusive disease Rectal bleeding Rheumatoid arthritis Smoker Subdural hematoma Subdural hemorrhage Type 2 diabetes mellitus Urinary incontinence Wears dentures Wears glasses Home Medications oxybutynin chloride 15 mg tablet,extended release 24 hr 15 mg PO DAILY bladder 10/01/21 [History Last Taken Unknown] acetaminophen 500 mg tablet 1,000 mg PO Q6H PRN Pain 04/05/22 [History Last Taken Unknown] metformin 1,000 mg tablet 1,000 mg PO BID dm 10/01/22 [History Last Taken Unknown] lisinopril 20 mg tablet 20 mg PO DAILY bp #90 tabs 10/24/22 [Rx Last Taken Unknown] bisacodyl 5 mg tablet 5 mg PO QHS PRN constipation 01/29/23 [History Last Taken Unknown] cilostazol 100 mg tablet 100 mg PO BID 01/29/23 [History Last Taken Unknown] melatonin 5 mg tablet 5 mg PO HS PRN sleep 01/29/23 [History Last Taken Unknown] sennosides 8.6 mg tablet (senna) 8.6 mg PO DAILY PRN constipation 01/29/23 [History Last Taken Unknown] bupropion HCl 150 mg tablet,12 hr sustained-release 150 mg PO Q12H 06/11/23 [History Last Taken Unknown] nicotine 21 mg/24 hr daily transdermal patch 1 patch transdermal Q24H 06/11/23 [History Last Taken Unknown] Allergy/AdvReac Type Severity Reaction Status Date / Time oxycodone [From Percocet] Allergy Intermediate Itching Verified 05/01/23 08:12 Family History Sister Diabetes Breast cancer Brother Cancer throat Hypertension Surgical History History of angioplasty of peripheral vessel History of cholecystectomy History of coronary artery stent placement (10/10/15) History of esophagogastroduodenoscopy (EGD) History of hysterectomy History of left heart catheterization (10/09/15) Hx of colonoscopy Hx of heart artery stent S/P craniotomy S/P craniotomy Social History household members: none and other details: She has 2 sons who live locally and can help her and also has 2 sisters housing: apartment number of children: 2 current occupational status: employed 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 mary beth/jehovah's witness: Orthodoxy seatbelt use: always do you feel safe at home: Yes Physical Exam Const Constitutional Narrative: Appears comfortable. Respirations unlabored. Alert, oriented. Moving all 4 extremities. Risk Stratification Risk Stratification Applicable: No Objective Data Vital Signs: Vital Signs Temp Pulse Resp BP Pulse Ox O2 Del Method O2 Flow Rate 99.8 F H 79 17 114/71 95 Room Air 2 06/12/23 09:25 06/12/23 09:25 06/12/23 09:25 06/12/23 09:25 06/12/23 09:25 06/12/23 09:25 06/11/23 20:30 Oxygen Flow Rate (L/min) 2 Oxygen Delivery Method Room Air Weight: 189 lb 9.561 oz Body Mass Index (BMI) 34.7 Intake & Output: Intake and Output for Last 24 Hours 06/10/23 06/11/23 06/12/23 23:59 23:59 23:59 Intake Total 1008.72 / 1008.72 Balance 1008.72 / 1008.72 Lab / Micro Data 06/12/23 05:40 06/12/23 05:40 Labs: Laboratory Results - last 24 hr 06/11/23 17:03: WBC 6.3, RBC 4.70, Hgb 15.4 H, Hct 45.3, MCV 96.4, MCH 32.8 H, MCHC 34.0, RDW Std Deviation 48.1 H, RDW Coeff of Martha 13.4, Plt Count 234, MPV 9.8, Immature Gran % (Auto) 0.800, Neut % (Auto) 63.2, Lymph % (Auto) 17.5 L, [place] % (Auto) 17.4 H, Eos % (Auto) 0.5, Baso % (Auto) 0.6, Absolute Neuts (auto) 4.0, Absolute Lymphs (auto) 1.11, Nucleated RBC % 0, Sodium 132 L, Potassium 4.1, Chloride 99, Carbon Dioxide 27.0, Anion Gap 6, BUN 12, Creatinine 0.92, Estim Creat Clear Calc 46.29, Est GFR (MDRD) Af Amer 78, Est GFR (MDRD) Non-Af 64, BUN/Creatinine Ratio 13.0, Glucose 194 H, Calcium 9.0, Troponin I High Sens 816 H* 06/11/23 18:40: PT 14.9, INR 1.2, APTT 35.8 06/11/23 19:40: Troponin I High Sens 848 H* 06/11/23 23:00: Troponin I High Sens 838 H* 06/12/23 00:45: APTT 63.9 H 06/12/23 05:39: POC Glucose 198 H 06/12/23 05:40: WBC 4.0 L, RBC 4.58, Hgb 14.6, Hct 44.0, MCV 96.1, MCH 31.9, MCHC 33.2, RDW Std Deviation 47.7 H, RDW Coeff of [place] 13.5, Plt Count 190, MPV 8.9, Immature Gran % (Auto) 1.300 H, Neut % (Auto) 57.7, Lymph % (Auto) 21.6, [place] % (Auto) 18.6 H, Eos % (Auto) 0.0, Baso % (Auto) 0.8, Absolute Neuts (auto) 2.3, Absolute Lymphs (auto) 0.86, Nucleated RBC % 0, Sodium 134 L, Potassium 3.7, Chloride 102, Carbon Dioxide 24.0, Anion Gap 8, BUN 11, Creatinine 0.74, Estim Creat Clear Calc 42.59, Est GFR (MDRD) Af Amer 100, Est GFR (MDRD) Non-Af 83, BUN/Creatinine Ratio 14.8, Glucose 201 H, Calcium 8.2 L, Triglycerides 129, Cholesterol 133, LDL Cholesterol 66, VLDL Cholesterol 26, HDL Cholesterol 41 Micro: Microbiology 06/11/23 15:10 Nasal Secretion SARS-CoV-2 & FLU Antigen (Rapid) - Final SARS-CoV-2 (COVID 19) Cardiology Labs/Tests 06/11/23 17:03: WBC 6.3, RBC 4.70, Hgb 15.4 H, Hct 45.3, MCV 96.4, MCH 32.8 H, MCHC 34.0, Plt Count 234, MPV 9.8, Immature Gran % (Auto) 0.800, Neut % (Auto) 63.2, Lymph % (Auto) 17.5 L, [place] % (Auto) 17.4 H, Eos % (Auto) 0.5, Baso % (Auto) 0.6, Absolute Neuts (auto) 4.0, Nucleated RBC % 0, Sodium 132 L, Potassium 4.1, Chloride 99, Carbon Dioxide 27.0, Anion Gap 6, BUN 12, Creatinine 0.92, Est GFR (MDRD) Af Amer 78, Est GFR (MDRD) Non-Af 64, BUN/Creatinine Ratio 13.0, Glucose 194 H, Calcium 9.0 06/11/23 18:40: PT 14.9, INR 1.2, APTT 35.8 06/12/23 00:45: APTT 63.9 H 06/12/23 05:40: WBC 4.0 L, RBC 4.58, Hgb 14.6, Hct 44.0, MCV 96.1, MCH 31.9, MCHC 33.2, Plt Count 190, MPV 8.9, Immature Gran % (Auto) 1.300 H, Neut % (Auto) 57.7, Lymph % (Auto) 21.6, [place] % (Auto) 18.6 H, Eos % (Auto) 0.0, Baso % (Auto) 0.8, Absolute Neuts (auto) 2.3, Nucleated RBC % 0, Sodium 134 L, Potassium 3.7, Chloride 102, Carbon Dioxide 24.0, Anion Gap 8, BUN 11, Creatinine 0.74, Est GFR (MDRD) Af Amer 100, Est GFR (MDRD) Non-Af 83, BUN/Creatinine Ratio 14.8, Glucose 201 H, Calcium 8.2 L, Triglycerides 129, Cholesterol 133, LDL Cholesterol 66, VLDL Cholesterol 26, HDL Cholesterol 41 Rhythm: EKG: ECHO: Stress Test: Cardiac Cath: PCI: CT Surgery: Holter monitor: EPS: PPM: CXR: Chest CT Scan: Radiography Diagnostic Testing: Radiology Impression Brain CT 06/11/23 17:22 IMPRESSION: Age-related and postsurgical changes of the brain. Electronically Signed: Gordon Saab DO at 17:51 EDT , Chest X-Ray 06/11/23 17:22 IMPRESSION: Masslike left suprahilar opacity. Electronically Signed: Gordon Saab DO at 17:53 EDT , Chest CTA 06/11/23 18:10 IMPRESSION: No demonstrated pulmonary embolism or arterial dissection. Left upper lobe spiculated mass, slightly larger than on previous study. Electronically Signed: Gordon Saab DO at 18:56 EDT Reading Location ID and State: [facility] / [place] Tel [phone], Service support ,
[2023-06-12 10:06] LABS: Partial Thromboplast Time 51.5 Seconds (24.1-36.2)
[2023-06-12] MEDS: Nitroglycerin Oint 1 INCH PACKET TD ×2 (11:07→17:18)
[2023-06-12] MEDS: Clopidogrel Bisulfate 75 MG Tablet PO (11:07)
[2023-06-12 11:59] LABS: Troponin-I HS 1587 pg/mL (3.0-54.0)
--- NOTE | 2023-06-12 14:00 | CASEMGMT ---
TIARA MARQUEZ Assessment: Face to Face with pt for initial transition planning/care coordination assessment. RN JIMMY introduced self and role at [facility], pt voices understanding and consents to assessment. Pt is A&O x4 and answers all questions appropriately at this time. Pt lying in bed with oxygen on in no distress with 2 visitors at bedside. Pt agreeable to assessment with visitors present. Care providers, pharmacy, and demographics verified/updated. Admitting Dx:NSTEMI, COVID 19, acute encephalopathy PCP:Iris Clayton Specialists:Maggy pulkade; Benjie onc; Ryan, cardio; joel Kingston Preferred Pharmacy: [facility] [place] Insurance: tracx [facility] Prescription Benefit: yes LNOK: Fred Powers, son; Phillip Powers, son Living Arrangements: Pt lives with roommate in a single story home with 3 steps to enter with a rail. Pt reports she is I in ADL's and denies concerns at home. Transportation: Pt drives self and denies concerns with transportation. DME:walker, shower chair HHC/SNF: Pt denies hx of Pt states no concerns with going home at time of dc. Pt states no further concerns/needs. CM to follow. Advised pt to ask CM if any further question/concerns/needs arise, voices understanding. Pt Goal: Home Plan: Home
[2023-06-12 15:27] VITALS: BP 108/63; PULSE 87; RESP 14; TEMP 37.6; O2SAT 94
[2023-06-12 15:53] LABS: Bedside Glucose 184 mg/dL (74-106)
[2023-06-12] MEDS: Benzonatate 100 MG Capsule PO (17:18)
[2023-06-12 17:32] LABS: Bedside Glucose 173 mg/dL (74-106)
[2023-06-12 18:01] LABS: Partial Thromboplast Time 75.8 Seconds (24.1-36.2)
[2023-06-12 18:25] LABS: Bedside Glucose 232 mg/dL (74-106)
[2023-06-12 20:00] VITALS: BP 109/75; PULSE 79; RESP 13; TEMP 37.2; O2SAT 95
[2023-06-12] MEDS: BENZOCAINE/MENTHOL 1 LOZENGE MUCOUS MEM (20:25)
[2023-06-12 21:44] LABS: Bedside Glucose 227 mg/dL (74-106)
[2023-06-13] VITALS (8 sets, daily range): BP systolic 97–110; BP diastolic 55–74; PULSE 66–72; RESP 14–16; TEMP 36.8–37.3; O2SAT 95–98
[2023-06-13] MEDS: Nitroglycerin Oint 1 INCH PACKET TD ×3 (00:01→11:51)
[2023-06-13] MEDS: BENZOCAINE/MENTHOL 1 LOZENGE MUCOUS MEM ×3 (00:01→21:26)
[2023-06-13] MEDS: Benzonatate 100 MG Capsule PO (00:01)
[2023-06-13] MEDS: HEPARIN/D5w 25,000 UNITS 25,000 UNITS/250 ML IV.SOLN. 8 UNITS CONT INF (00:02)
[2023-06-13] MEDS: Acetaminophen 500 MG Tablet 1000 MG PO ×2 (05:20→21:26)
[2023-06-13 05:37] LABS: Absolute Lymphocyte Count 1.13 X10^3/uL (0.83-4.51); Absolute Neutrophil Count 2.3 X10^3/uL (2.0-7.7); Basophil# 0.02 X10^3/uL; Basophil% 0.5 % (0-1); Eosinophil# 0.01 X10^3/uL; Eosinophils% 0.2 % (0-5); Hematocrit 40.9 % (37-47); Hemoglobin 13.3 g/dL (12.0-15.0); Lymphocyte # 1.13 X10^3/ul (0.83-4.51); Lymphocyte % 26.5 % (19-41); Mean Corp Hgb Conc 32.5 g/dL (32-36); Mean Corpuscular Hgb 31.8 pg (27.0-32.0); Mean Corpuscular Volume 97.8 fL (81-99); Mean Platelet Vol. 9.1 fl (6.2-12.0); Monocyte# 0.75 X10^3/uL; Monocyte% 17.6 % (0-10); NRBC Flagged by Analyzer 0 % (0-5); Neutrophil # 2.33 X10^3/uL (2.7-7.7); Neutrophil % 54.5 % (47-70); Platelet Count 172 K/mm3 (150-450); RBC Distribution Width CV 13.7 % (11.6-14.6); RBC Distribution Width SD 49.3 fl (35.1-43.9); Red Blood Count 4.18 M/mm3 (4.2-5.4); White Blood Count 4.3 K/mm3 (4.4-11.0)
[2023-06-13 05:52] LABS: Anion Gap 6 (5-15); BUN 10 mg/dL (7-18); BUN/Creat Ratio 14.2 RATIO (10-20); Calcium,Total 7.6 mg/dL (8.5-10.1); Chloride 108 mmol/L (98-107); EST Glomerular Filtration Rate 88 mL/min (>60); Est Glom Filt Rate - Afr Amer 106 mL/min (>60); Estimated Creatinine Clearance 42.59 ml/min; Glucose 197 mg/dL (74-106); Potassium 3.8 mmol/L (3.5-5.1); Sodium Level 138 mmol/L (136-145)
[2023-06-13] MEDS: Insulin Lispro 100 UNIT/ML INSULN.PEN SC ×4 (07:48→21:28)
[2023-06-13] MEDS: Clopidogrel Bisulfate 75 MG Tablet PO (07:49)
[2023-06-13] MEDS: Tolterodine Tartrate 4 MG CAP.SA PO (07:49)
[2023-06-13] MEDS: buPROPion (SR) 150 MG Tablet.SA PO ×2 (07:49→21:44)
[2023-06-13] MEDS: Aspirin E.C. 81 MG Tablet PO (07:49)
--- NOTE | 2023-06-13 08:06 | PCM.PN.HOSP ---
Reason for Visit Reason for Visit: Diagnoses Type 2 diabetes mellitus without complications (06/11/23) Encephalopathy, unspecified (06/11/23) Non-ST elevation (NSTEMI) myocardial infarction (06/11/23) Atherosclerotic heart disease of [place] coronary artery without angina pectoris (06/11/23) Peripheral vascular disease, unspecified (06/11/23) COVID-19 (06/11/23) Subjective Subjective Feeling better today, no acute complaints at this time Objective Data Objective Data Vital Signs: Vital Signs Temp Pulse Resp BP Pulse Ox O2 Del Method O2 Flow Rate 98.7 F 72 16 99/55 L 97 Nasal Cannula 2 06/13/23 07:52 06/13/23 07:52 06/13/23 07:52 06/13/23 07:52 06/13/23 07:52 06/13/23 07:52 06/13/23 07:52 Oxygen Flow Rate (L/min) 2 Oxygen Delivery Method Nasal Cannula Weight: 86 kg Body Mass Index (BMI) 34.7 Intake & Output: Intake and Output for Last 24 Hours 06/11/23 06/12/23 06/13/23 23:59 23:59 23:59 Intake Total 1953.50 / 1953.50 62.80 / 62.80 Balance 1953.50 / 1953.50 62.80 / 62.80 Lab / Micro Data 06/13/23 05:25 06/13/23 05:25 Labs: Laboratory Results - last 24 hr 06/11/23 22:58: POC Glucose 184 H 06/12/23 09:35: APTT 51.5 H 06/12/23 11:15: Troponin I High Sens 1587 H* 06/12/23 13:08: POC Glucose 173 H 06/12/23 17:17: POC Glucose 232 H 06/12/23 17:30: APTT 75.8 H 06/12/23 20:19: POC Glucose 227 H 06/13/23 00:10: APTT 70.0 H 06/13/23 05:25: WBC 4.3 L, RBC 4.18 L, Hgb 13.3, Hct 40.9, MCV 97.8, MCH 31.8, MCHC 32.5, RDW Std Deviation 49.3 H, RDW Coeff of Martha 13.7, Plt Count 172, MPV 9.1, Immature Gran % (Auto) 0.700, Neut % (Auto) 54.5, Lymph % (Auto) 26.5, [place] % (Auto) 17.6 H, Eos % (Auto) 0.2, Baso % (Auto) 0.5, Absolute Neuts (auto) 2.3, Absolute Lymphs (auto) 1.13, Nucleated RBC % 0, Sodium 138, Potassium 3.8, Chloride 108 H, Carbon Dioxide 24.0, Anion Gap 6, BUN 10, Creatinine 0.70, Estim Creat Clear Calc 42.59, Est GFR (MDRD) Af Amer 106, Est GFR (MDRD) Non-Af 88, BUN/Creatinine Ratio 14.2, Glucose 197 H, Calcium 7.6 L Micro: Microbiology 06/11/23 15:10 Nasal Secretion SARS-CoV-2 & FLU Antigen (Rapid) - Final SARS-CoV-2 (COVID 19) Radiography Diagnostic Testing: Radiology Impression Echocardiogram 06/12/23 05:55 Interpretation Summary The study was technically difficult. The left ventricular ejection fraction is 60 %. Posterior basal and lateral basal hypokinesis. There is moderate biatrial dilatation. Ordering Physician: Nic Caraballo Performed By: Ed Cooper RCS Physical Exam Narrative General: Alert, oriented, no apparent distress HEENT: Atraumatic, normocephalic Eyes: Anicteric, normal conjunctiva, extraocular movements grossly intact Neck: Supple Respiratory: Somewhat diminished at the bases, normal respiratory effort Cardiovascular: Regular rate and rhythm GI: Soft, nontender, nondistended Extremities: No edema Musculoskeletal: Moving all extremities Neuro: No overt focal neurological deficits Skin: No rashes appreciated Psych: Cooperative Assessment & Plan Assessment/Plan (1) NSTEMI, initial episode of care: (2) COVID-19: (3) Encephalopathy acute: PLAN: Plan #Nstemi -Unclear type I vs type II -Did have chest pain and troponin 816 up trended to 848 before downtrending again to 838 -CTA on presentation no PE or dissection -Echocardiogram ordered -Patient on heparin drip -Cardiology consulted for possible intervention -06/13: Repeat troponin 1500 and echo with EF of 60% with posterior basal and lateral basal hypokinesis, patient on aspirin, Plavix, heparin drip DC'd, if patient stable tomorrow plan will be discharged with outpatient cath in 2 to 3 weeks #Type 2 diabetes mellitus -Glucose checks and sliding scale insulin -Check A1c in the a.m. #COVID-19 infection -Not hypoxic and not patient's presenting complaint or concern -Does not have indication for additional medications at this time, continue supportive care, not on O2 supplementation or having any breathing complaints -06/13: Not hypoxic, continue supportive care #Left upper lobe mass -Follows with oncology -On CT left upper lobe spiculated mass was slightly larger than on previous study at 3.9 x 2.2 -We will need follow-up oncology on DC. #DVT ppx: Heparin drip Gwendolyn Petersen MD Time spent in the patient's overall evaluation,decision-making process, review of diagnostic data, adjustment of management, discussion with other providers, nursing nursing and ancillary staff involved in patient's care documentation, 25 minutes Charges/Coding Visit Charges Inpatient E&M: 62835 [facility] Hosp L1
[2023-06-13 08:29] LABS: Bedside Glucose 176 mg/dL (74-106)
[2023-06-13 08:46] LABS: Partial Thromboplast Time 52.7 Seconds (24.1-36.2)
[2023-06-13 12:15] LABS: Bedside Glucose 274 mg/dL (74-106)
--- NOTE | 2023-06-13 12:48 | PCM.PN.CARD ---
Subjective Subjective Denies any complaints. No chest pain. Objective Data Vital Signs: Vital Signs Temp Pulse Resp BP Pulse Ox O2 Del Method O2 Flow Rate 98.7 F 72 16 99/55 L 97 Nasal Cannula 2 06/13/23 07:52 06/13/23 07:52 06/13/23 07:52 06/13/23 07:52 06/13/23 07:52 06/13/23 08:55 06/13/23 08:55 Oxygen Flow Rate (L/min) 2 Oxygen Delivery Method Nasal Cannula Weight: 189 lb 9.561 oz Body Mass Index (BMI) 34.7 Intake & Output: Intake and Output for Last 24 Hours 06/11/23 06/12/23 06/13/23 23:59 23:59 23:59 Intake Total 1953.50 / 1953.50 1067.55 / 1067.55 Balance 50 / 1953.50 1067.55 / 1067.55 Lab / Micro Data 06/13/23 05:25 06/13/23 05:25 Labs: Laboratory Results - last 24 hr 06/11/23 22:58: POC Glucose 184 H 06/12/23 13:08: POC Glucose 173 H 06/12/23 17:17: POC Glucose 232 H 06/12/23 17:30: APTT 75.8 H 06/12/23 20:19: POC Glucose 227 H 06/13/23 00:10: APTT 70.0 H 06/13/23 05:25: WBC 4.3 L, RBC 4.18 L, Hgb 13.3, Hct 40.9, MCV 97.8, MCH 31.8, MCHC 32.5, RDW Std Deviation 49.3 H, RDW Coeff of Martha 13.7, Plt Count 172, MPV 9.1, Immature Gran % (Auto) 0.700, Neut % (Auto) 54.5, Lymph % (Auto) 26.5, [place] % (Auto) 17.6 H, Eos % (Auto) 0.2, Baso % (Auto) 0.5, Absolute Neuts (auto) 2.3, Absolute Lymphs (auto) 1.13, Nucleated RBC % 0, Sodium 138, Potassium 3.8, Chloride 108 H, Carbon Dioxide 24.0, Anion Gap 6, BUN 10, Creatinine 0.70, Estim Creat Clear Calc 42.59, Est GFR (MDRD) Af Amer 106, Est GFR (MDRD) Non-Af 88, BUN/Creatinine Ratio 14.2, Glucose 197 H, Calcium 7.6 L 06/13/23 07:48: POC Glucose 176 H 06/13/23 07:57: APTT 52.7 H 06/13/23 11:46: POC Glucose 274 H Cardiology Labs/Tests 06/12/23 17:30: APTT 75.8 H 06/13/23 00:10: APTT 70.0 H 06/13/23 05:25: WBC 4.3 L, RBC 4.18 L, Hgb 13.3, Hct 40.9, MCV 97.8, MCH 31.8, MCHC 32.5, Plt Count 172, MPV 9.1, Immature Gran % (Auto) 0.700, Neut % (Auto) 54.5, Lymph % (Auto) 26.5, [place] % (Auto) 17.6 H, Eos % (Auto) 0.2, Baso % (Auto) 0.5, Absolute Neuts (auto) 2.3, Nucleated RBC % 0, Sodium 138, Potassium 3.8, Chloride 108 H, Carbon Dioxide 24.0, Anion Gap 6, BUN 10, Creatinine 0.70, Est GFR (MDRD) Af Amer 106, Est GFR (MDRD) Non-Af 88, BUN/Creatinine Ratio 14.2, Glucose 197 H, Calcium 7.6 L 06/13/23 07:57: APTT 52.7 H Rhythm: EKG: ECHO: Stress Test: Cardiac Cath: PCI: CT Surgery: Holter monitor: EPS: PPM: CXR: Chest CT Scan: Radiography Diagnostic Testing: Radiology Impression Echocardiogram 06/12/23 05:55 Interpretation Summary The study was technically difficult. The left ventricular ejection fraction is 60 %. Posterior basal and lateral basal hypokinesis. There is moderate biatrial dilatation. Ordering Physician: Nic Caraballo Performed By: Ed Cooper RCS Physical Exam Const Constitutional Narrative: Appears comfortable. Respirations unlabored. Alert, oriented. Moving all 4 extremities. Assessment & Plan Assessment/Plan (1) NSTEMI, initial episode of care: PLAN: NSTEMI in the setting of COVID-19 infection. No further chest pain. LVEF normal. Continue aspirin and Plavix. Discontinue heparin infusion. Stop Nitropaste. Start low-dose beta-blockers. (2) Coronary artery disease: PLAN: History of stent to the left circumflex in 2016. Aspirin. Plavix. Statins. (3) Diabetes: PLAN: As per internal medicine. (4) COVID-19: PLAN: As per internal medicine. (5) Peripheral arterial disease: PLAN: Aspirin and Plavix. PLAN: Plan May discharge home tomorrow morning if continues to be stable. Plan on coronary angiography in 2 to 3 weeks. Discussed with patient. Understands and agrees with the plan.
--- NOTE | 2023-06-13 13:49 | CASEMGMT ---
Discussed with pt that should she need oxygen, [employer] delivers on the weekend. She has used [employer] before but is agreeable to [employer]. Pt denies further homegoing needs. Green sheet on chart for oxygen.
[2023-06-13] MEDS: Metoprolol Tartrate 25 MG Tablet 12.5 MG PO ×2 (13:56→21:59)
[2023-06-13 16:59] LABS: Bedside Glucose 177 mg/dL (74-106)
[2023-06-13] MEDS: Atorvastatin Calcium 40 MG Tablet PO (21:44)
[2023-06-13 21:51] LABS: Bedside Glucose 179 mg/dL (74-106)
[2023-06-14 04:00] VITALS: BP 99/71; PULSE 59; RESP 14; TEMP 36.7; O2SAT 97
[2023-06-14 04:36] LABS: Absolute Lymphocyte Count 1.15 X10^3/uL (0.83-4.51); Absolute Neutrophil Count 2.3 X10^3/uL (2.0-7.7); Basophil# 0.01 X10^3/uL; Basophil% 0.2 % (0-1); Eosinophil# 0.04 X10^3/uL; Hematocrit 40.5 % (37-47); Hemoglobin 13.3 g/dL (12.0-15.0); Lymphocyte # 1.15 X10^3/ul (0.83-4.51); Mean Corp Hgb Conc 32.8 g/dL (32-36); Mean Corpuscular Hgb 32.2 pg (27.0-32.0); Mean Corpuscular Volume 98.1 fL (81-99); Monocyte# 0.57 X10^3/uL; Monocyte% 13.9 % (0-10); NRBC Flagged by Analyzer 0 % (0-5); Neutrophil # 2.31 X10^3/uL (2.7-7.7); Neutrophil % 56.4 % (47-70); Platelet Count 170 K/mm3 (150-450); RBC Distribution Width CV 13.8 % (11.6-14.6); RBC Distribution Width SD 49.2 fl (35.1-43.9); Red Blood Count 4.13 M/mm3 (4.2-5.4); White Blood Count 4.1 K/mm3 (4.4-11.0)
[2023-06-14 04:54] LABS: Anion Gap 0 (5-15); BUN 12 mg/dL (7-18); BUN/Creat Ratio 20.5 RATIO (10-20); Calcium,Total 8.1 mg/dL (8.5-10.1); Chloride 110 mmol/L (98-107); Creatinine, Serum 0.58 mg/dL (0.55-1.02); EST Glomerular Filtration Rate 109 mL/min (>60); Est Glom Filt Rate - Afr Amer 132 mL/min (>60); Estimated Creatinine Clearance 42.59 ml/min; Glucose 156 mg/dL (74-106); Potassium 3.8 mmol/L (3.5-5.1); Sodium Level 136 mmol/L (136-145)
[2023-06-14 07:48] LABS: Hemoglobin A1c 8.1 % (3.8-5.6)
[2023-06-14 08:23] VITALS: BP 117/59; PULSE 67; RESP 16; TEMP 37.1; O2SAT 93
[2023-06-14 08:46] LABS: Bedside Glucose 174 mg/dL (74-106)
[2023-06-14 09:01] VITALS: O2SAT 96
[2023-06-14] MEDS: buPROPion (SR) 150 MG Tablet.SA PO (09:35)
[2023-06-14 09:36] VITALS: BP 117/59; PULSE 67
[2023-06-14] MEDS: Metoprolol Tartrate 25 MG Tablet 12.5 MG PO (09:36)
[2023-06-14] MEDS: Tolterodine Tartrate 4 MG CAP.SA PO (09:36)
[2023-06-14] MEDS: Aspirin E.C. 81 MG Tablet PO (09:36)
[2023-06-14] MEDS: Clopidogrel Bisulfate 75 MG Tablet PO (09:36)
[2023-06-14] MEDS: Insulin Lispro 100 UNIT/ML INSULN.PEN SC (09:37)
--- NOTE | 2023-06-14 10:10 | DCINST_ITS ---
Discharge Instructions Diet Discharge Diet: - (DASH diet ) Activity Discharge Activity: - (Increase activity as tolerated) Follow Up Care Test Results: Test results from this visit will be discussed in further detail at your follow- up appointment, if applicable. Discharge Plan Admission Admit Date/Time: 06/11/23 19:25 Primary Reason for Your Visit: Chest pain Attending Provider: Gwendolyn Petersen Primary Care Provider: Iris Clayton Consulting Providers: Nic Caraballo; Gena Johnson Instructions Patient Instructions: How COVID-19 Spreads, Infection Preventing Spread Additional Instructions / Restrictions: DISCHARGE INSTRUCTIONS PLEASE READ *Please take this with you to your next doctors appointment* -You will need to follow-up with cardiology upon discharge, please call the office of Dr. Johnson upon discharge to schedule your hospital follow-up appointment ) - Please follow-up with oncology upon discharge for your lung mass - Your lisinopril has been held due to your blood pressure being on the low side, would recommend monitoring of blood pressure on outpatient basis, this will likely need resumed -You will be discharged on aspirin and Plavix and will discontinue your cilostazol -You will be also discharged on atorvastatin -It is advised that you isolate for 5 days from her positive COVID test and the following 5 days mask when around others -You had elevated blood glucoses as well, continue metformin however you may require additional medication moving forward if glucose is not controlled -Please call your primary care provider's office upon discharge to schedule a hospital follow up within 1 week. -For any concerning signs or symptoms please call 911 or proceed to the nearest emergency department Discharge Orders/Prescriptions Prescriptions: New aspirin 81 mg Tablet,Delayed Release (Dr/Ec) 81 mg PO BREAKFAST Qty: 30 0RF atorvastatin 40 mg Tablet 40 mg PO QHS 30 Days Qty: 30 0RF clopidogrel 75 mg Tablet 75 mg PO DAILY 30 Days Qty: 30 0RF metoprolol tartrate 25 mg Tablet 12.5 mg PO BID 30 Days Qty: 30 0RF Continued metformin 1,000 mg tablet 1,000 mg PO BID oxybutynin chloride 15 mg tablet extended release 24hr 15 mg PO DAILY Patient Comments: TAKE 1 TABLET BY MOUTH DAILY sennosides [senna] 8.6 mg tablet 8.6 mg PO DAILY PRN (Reason: constipation) bisacodyl 5 mg tablet 5 mg PO QHS PRN (Reason: constipation) melatonin 5 mg tablet 5 mg PO HS PRN (Reason: sleep) acetaminophen 500 mg Tablet 1,000 mg PO Q6H PRN (Reason: Pain) bupropion HCl 150 mg tablet sustained-release 12 hr 150 mg PO Q12H Patient Comments: TAKE 1 TABLET BY MOUTH TWICE DAILY nicotine 21 mg/24 hr patch 24 hour 1 patch transdermal Q24H Patient Comments: apply 1 patch to the skin every 24 hours. Remove old patch Discontinued cilostazol 100 mg tablet 100 mg PO BID lisinopril 20 mg tablet 20 mg PO DAILY Qty: 90 3RF Referrals / Follow Up: Gena Johnson MD [Med Staff - Active Staff] - Within 2 Weeks Iris Clayton NP-C [Primary Care Provider] - Within 1 Week Disposition Disposition (needs filled in before D/C Order can be placed): Home, Self Care
[2023-06-14 10:11] VITALS: O2SAT 92; O2SAT 96
--- NOTE | 2023-06-14 10:12 | PCM.DC.SUM ---
Providers Date of Admission: 06/11/23 Date of Discharge: 06/14/23 Primary Care Physician: LANEY Ma Consultations 06/11/23 19:51 Consult: Cardiology Routine Consulting Provider: Gena Johnson Reason for Consult: Chest Pain EMERGENT Consult: No MD Notified: Yes Date Notified: 06/12/23 Time Notified: 08:01 Method of Notification: Text Method of Consult:: In-Person Reason For Visit: NSTEMI, COVID 19, ACUTE ENCEPHALOPATHY Diagnosis Discharge Diagnosis (1) NSTEMI, initial episode of care: Status: Acute Code(s): I21.4 - Non-ST elevation (NSTEMI) myocardial infarction (2) COVID-19: Status: Acute Code(s): U07.1 - COVID-19 (3) Encephalopathy acute: Status: Acute Code(s): G93.40 - Encephalopathy, unspecified Plan #Nstemi- likely type I given wall motion abnormalities, EKG, and troponin elevation #Type 2 diabetes mellitus #COVID-19 infection #Left upper lobe mass Medications at Discharge Home Medications oxybutynin chloride 15 mg tablet,extended release 24 hr 15 mg PO DAILY bladder 10/01/21 acetaminophen 500 mg tablet 1,000 mg PO Q6H PRN Pain 04/05/22 metformin 1,000 mg tablet 1,000 mg PO BID dm 10/01/22 bisacodyl 5 mg tablet 5 mg PO QHS PRN constipation 01/29/23 melatonin 5 mg tablet 5 mg PO HS PRN sleep 01/29/23 sennosides 8.6 mg tablet (senna) 8.6 mg PO DAILY PRN constipation 01/29/23 bupropion HCl 150 mg tablet,12 hr sustained-release 150 mg PO Q12H 06/11/23 nicotine 21 mg/24 hr daily transdermal patch 1 patch transdermal Q24H 06/11/23 aspirin 81 mg tablet,delayed release 81 mg PO BREAKFAST #30 tabs 06/14/23 atorvastatin 40 mg tablet 40 mg PO QHS 30 days #30 tabs 06/14/23 clopidogrel 75 mg tablet 75 mg PO DAILY 30 days #30 tabs 06/14/23 metoprolol tartrate 25 mg tablet 12.5 mg (1/2 x 25 mg) PO BID 30 days #30 tabs 06/14/23 Hospital Course Procedures Transthoracic echo Summary of Care Provided Minutes Spent on Discharge: 35 Hospital Course: 67-year-old female with a history of CAD status post stenting 6 years ago who presented 06/11/2023 for chest pain. CTA with no PE or dissection but had troponin in the 800s that trended up to 1500s, was also found to have COVID-19 however was not hypoxic and had no respiratory complaints. Cardiology consulted and patient heparin drip and echocardiogram ordered. Echocardiogram demonstrated EF of 60% with posterior basal lateral basal hypokinesis. Patient improved significantly clinically, no further symptoms, was transitioned off heparin drip and aspirin, Plavix, beta-muriel with no resurgence of symptoms. Given patient's stability plan will be outpatient coronary angiography in 2 to 3 weeks with cardiology. Discharge restrictions as follows: DISCHARGE INSTRUCTIONS PLEASE READ *Please take this with you to your next doctors appointment* -You will need to follow-up with cardiology upon discharge, please call the office of Dr. Johnson upon discharge to schedule your hospital follow-up appointment ( [phone]) - Please follow-up with oncology upon discharge for your lung mass - Your lisinopril has been held due to your blood pressure being on the low side, would recommend monitoring of blood pressure on outpatient basis, this will likely need resumed -You will be discharged on aspirin and Plavix and will discontinue your cilostazol -You will be also discharged on atorvastatin -You had elevated blood glucoses as well, continue metformin however you may require additional medication moving forward if glucose is not controlled -Please call your primary care provider's office upon discharge to schedule a hospital follow up within 1 week. -For any concerning signs or symptoms please call 911 or proceed to the nearest emergency department Physical Exam Narrative General: Alert, oriented, no apparent distress HEENT: Atraumatic, normocephalic Eyes: Anicteric, normal conjunctiva, extraocular movements grossly intact Neck: Supple Respiratory: Fairly good air movement, normal respiratory effort Cardiovascular: Regular rate GI: Soft, nontender, nondistended Extremities: No edema Musculoskeletal: Moving all extremities Neuro: No overt focal neurological deficits Skin: No rashes appreciated Psych: Cooperative Weight / BMI Weight Weight: 86 kg Body Mass Index (BMI) 34.7 ABG / Lab / Microbiology Data 06/14/23 04:22 06/14/23 04:22 Laboratory: Laboratory Results - last 24 hr 06/13/23 11:46: POC Glucose 274 H 06/13/23 16:37: POC Glucose 177 H 06/13/23 21:25: POC Glucose 179 H 06/14/23 04:22: WBC 4.1 L, RBC 4.13 L, Hgb 13.3, Hct 40.5, MCV 98.1, MCH 32.2 H, MCHC 32.8, RDW Std Deviation 49.2 H, RDW Coeff of Martha 13.8, Plt Count 170, MPV 9.0, Immature Gran % (Auto) 0.500, Neut % (Auto) 56.4, Lymph % (Auto) 28.0, Harrison % (Auto) 13.9 H, Eos % (Auto) 1.0, Baso % (Auto) 0.2, Absolute Neuts (auto) 2.3, Absolute Lymphs (auto) 1.15, Nucleated RBC % 0, Sodium 136, Potassium 3.8, Chloride 110 H, Carbon Dioxide 26.0, Anion Gap 0 L, BUN 12, Creatinine 0.58, Estim Creat Clear Calc 42.59, Est GFR (MDRD) Af Amer 132, Est GFR (MDRD) Non-Af 109, BUN/Creatinine Ratio 20.5 H, Glucose 156 H, Hemoglobin A1c 8.1 H, Calcium 8.1 L 06/14/23 08:20: POC Glucose 174 H Microbiology: Microbiology 06/11/23 15:10 Nasal Secretion SARS-CoV-2 & FLU Antigen (Rapid) - Final SARS-CoV-2 (COVID 19) D/C Instructions Discharge Diet: - (DASH diet ) Meaningful Use Info Meaningful Use Diagnoses (Choose all that apply): AMI AMI/Post PCI/Angioplasty Aspirin given w/in 24hrs of arrival?: Yes ASA at discharge?: Yes Statins at discharge?: Yes Brandon/ARB at discharge?: No Reason Brandon/ARB not ordered:: Hypotension Beta Muriel at discharge?: Yes Done w/ Acute [place] measure.: Yes Documented LVEF (%): 60 Discharge Plan Admission Admit Date/Time: 06/11/23 19:25 Primary Reason for Your Visit: Chest pain Attending Provider: Gwendolyn Petersen Primary Care Provider: Iris Clayton Consulting Providers: Nic Caraballo; Gena Johnson Instructions Patient Instructions: How COVID-19 Spreads, Infection Preventing Spread Additional Instructions / Restrictions: DISCHARGE INSTRUCTIONS PLEASE READ *Please take this with you to your next doctors appointment* -You will need to follow-up with cardiology upon discharge, please call the office of Dr. Johnson upon discharge to schedule your hospital follow-up appointment ( [phone]) - Please follow-up with oncology upon discharge for your lung mass - Your lisinopril has been held due to your blood pressure being on the low side, would recommend monitoring of blood pressure on outpatient basis, this will likely need resumed -You will be discharged on aspirin and Plavix and will discontinue your cilostazol -You will be also discharged on atorvastatin -It is advised that you isolate for 5 days from her positive COVID test and the following 5 days mask when around others -You had elevated blood glucoses as well, continue metformin however you may require additional medication moving forward if glucose is not controlled -Please call your primary care provider's office upon discharge to schedule a hospital follow up within 1 week. -For any concerning signs or symptoms please call 911 or proceed to the nearest emergency department Discharge Orders/Prescriptions Prescriptions: New aspirin 81 mg Tablet,Delayed Release (Dr/Ec) 81 mg PO BREAKFAST Qty: 30 0RF atorvastatin 40 mg Tablet 40 mg PO QHS 30 Days Qty: 30 0RF clopidogrel 75 mg Tablet 75 mg PO DAILY 30 Days Qty: 30 0RF metoprolol tartrate 25 mg Tablet 12.5 mg PO BID 30 Days Qty: 30 0RF Continued metformin 1,000 mg tablet 1,000 mg PO BID oxybutynin chloride 15 mg tablet extended release 24hr 15 mg PO DAILY Patient Comments: TAKE 1 TABLET BY MOUTH DAILY sennosides [senna] 8.6 mg tablet 8.6 mg PO DAILY PRN (Reason: constipation) bisacodyl 5 mg tablet 5 mg PO QHS PRN (Reason: constipation) melatonin 5 mg tablet 5 mg PO HS PRN (Reason: sleep) acetaminophen 500 mg Tablet 1,000 mg PO Q6H PRN (Reason: Pain) bupropion HCl 150 mg tablet sustained-release 12 hr 150 mg PO Q12H Patient Comments: TAKE 1 TABLET BY MOUTH TWICE DAILY nicotine 21 mg/24 hr patch 24 hour 1 patch transdermal Q24H Patient Comments: apply 1 patch to the skin every 24 hours. Remove old patch Discontinued cilostazol 100 mg tablet 100 mg PO BID lisinopril 20 mg tablet 20 mg PO DAILY Qty: 90 3RF Referrals / Follow Up: Gena Johnson MD [Med Staff - Active Staff] - Within 2 Weeks Iris Clayton NP-C [Primary Care Provider] - Within 1 Week Disposition Disposition (needs filled in before D/C Order can be placed): Home, Self Care Charges/Coding Visit Charges Inpatient E&M: 26710 Disch Hosp >30min
[2023-06-14 11:00] VITALS: BP 117/59; PULSE 67; RESP 16; TEMP 37.1; O2SAT 93
== END 2023-06-14 11:47 | disposition home or self-care (01) | DRG 280 ==
LOC: ED 18:30 → ICU 20:57
PROVIDERS: Internal Medicine Cardiovascular Disease; Admitting Provider Hospitalist; Emergency Provider Student in an Organized Health Care Education/Training Program; PCP Nurse Practitioner Family; Visit Provider Internal Medicine
DX: I21.4 Non-ST elevation (NSTEMI) myocardial infarction (principal); U07.1 COVID-19; G93.40 Encephalopathy, unspecified; E11.51 Type 2 diabetes mellitus with diabetic peripheral angiopathy without gangrene; E11.65 Type 2 diabetes mellitus with hyperglycemia; I25.10 Atherosclerotic heart disease of native coronary artery without angina pectoris; Z79.82 Long term (current) use of aspirin; Z80.3 Family history of malignant neoplasm of breast; Z79.84 Long term (current) use of oral hypoglycemic drugs; Z79.02 Long term (current) use of antithrombotics/antiplatelets; Z95.5 Presence of coronary angioplasty implant and graft; R91.8 Other nonspecific abnormal finding of lung field; Z87.820 Personal history of traumatic brain injury
CPT/HCPCS: 70450; 71045; 71275; 80048; 80061; 82962; 83036; 84484; 85025; 85610; 85730; 87428; 93005; 93306; 99285; J7030; Q9957; Q9967; A4216

== ENCOUNTER 2023-07-16 06:52 | Day surgery (SDC) | payer MEDICARE, SELFPAY ==
[2023-07-16 07:16] VITALS: BMI 35.1
--- NOTE | 2023-07-16 08:30 | CL.D_ITS ---
Patient Name: KAELYN DURMMOND Study Date: 07/16/2023 Performing: Eder Davis MD Ht: 62 inches 157.48 cm : 1955 Wt: 153.99 lbs 69.85 kg Age: 67 Gender: female BSA: 1.71 PROCEDURE(S) PERFORMED [id number])[facility] CLINICAL PROFILE AND INDICATIONS Indications: Stable Known CAD Heart Failure: None Stress/Imaging Stress/Image Study Performed: No CAD Presentations: No Sxs, no angina. CONCLUSIONS Non obstructive coronary arteries RECOMMENDATIONS Medical therapy DESCRIPTION OF PROCEDURE The patient arrived to the procedure lab. The risks and benefits of the procedure as well as a full description of our services here and current unavailability of surgical backup were fully explained to the patient and/or their significant other prior to the catheterization. The Timeout was completed, verifying the correct patient and procedure. The patient's procedural site was prepped and draped in the usual fashion. Local anesthetic was given subcutaneously to right radial region with Lidocaine 2%. Using a modified Seldinger technique, arterial access was obtained via the right radial artery, a 6Fr sheath was inserted. Right Coronary Artery selective angiography was then performed in multiple views using a 5 Fr. 4.0 [place] catheter. Left Coronary Artery selective angiography was performed in multiple views using a 5 Fr. 4.0 [place] catheter.The arterial sheath was pulled and a TR Band was applied for hemostasis w/ 10ml air CORONARY ANGIOGRAPHY DOMINANCE: Left Dominant LEFT HEART ASSESSMENT Left Ventricular Ejection Fraction: by Echo 60 % Normal LV wall motion Normal Left Ventricular systolic function LEFT MAIN: Angiographically normal LEFT ANTERIOR DESCENDING ARTERY: Mild luminal irregularities CIRCUMFLEX ARTERY: Previously placed stent is patent RIGHT CORONARY ARTERY: No significant disease noted COMPLICATIONS No Complications PROCEDURE MEDICATIONS Versed 1 mg IV Fentanyl 50 mcg IV Versed 1 mg IV Oxygen: 2 L/min via nasal cannula Heparin given IA 07/16/2023 07:56:32 Verapamil 2.5mg, Ntg 200mcgs, 2000 units of Heparin given IA 07/16/2023 07:56:32 SUMMARY OF HEMODYNAMIC DATA Time AIR REST ECG 07:12:02 ECG 07:12:05 ECG 07:14:17 Art 125/58 (85) 07:59:44 AO 126/61 (89) SA 08:13:48 AIR REST 08:29:19 Signed By Eder Davis MD On 07/16/2023 08:29:22 Eder Davis MD
== END 2023-07-16 09:45 | disposition home or self-care (01) ==
PROVIDERS: PCP Family Medicine; Referring Provider Internal Medicine Cardiovascular Disease; Visit Provider Internal Medicine Cardiovascular Disease
DX: I25.10 Atherosclerotic heart disease of native coronary artery without angina pectoris (principal); C34.90 Malignant neoplasm of unspecified part of unspecified bronchus or lung; Z95.5 Presence of coronary angioplasty implant and graft; I10 Essential (primary) hypertension; E78.5 Hyperlipidemia, unspecified; Z87.891 Personal history of nicotine dependence; I25.2 Old myocardial infarction; Z86.16 Personal history of COVID-19
CPT/HCPCS: 93454; 99152; 99153; J7040; C1769; C1894

== ENCOUNTER 2023-07-22 10:56 | Day surgery (SDC) | payer MEDICARE, SELFPAY ==
[2023-07-22 11:25] VITALS: BP 138/55; PULSE 59; RESP 17; TEMP 36.3; O2SAT 99; BMI 35.0
[2023-07-22] MEDS: Lactated Ringers 1,000 ML 15 ML IV (11:25)
--- NOTE | 2023-07-22 12:02 | HP.PCM_ITS ---
History and Physical Date of Admission: 07/22/23 Intake Vital Signs 07/17/2308:51 07/18/2310:11 Height 5 ft 2 in 5 ft 2 in Weight: 191 lb 7 oz 189 lb 8 oz BMI 35.0 34.6 BP 124/84 H 119/60 Blood Pressure Location Lt brachial Rt brachial Position Sitting Sitting Respiration 18 18 Pulse 59 L 63 Pulse Source Monitor Monitor Temp 98.1 F 97.2 F L Temp Source Temporal Pulse Oximetry (%) 97 95 Oxygen Delivery Method room air room air Intake Visit Reasons: PORT PLACEMENT Chief Complaint: Port placement consult Production Line Required: No Accompanied by: Is patient in pain?: No Allergies oxycodone [From Percocet] Allergy (Intermediate, Verified 07/18/23 10:13) Itching Medications oxybutynin chloride 15 mg tablet,extended release 24 hr 15 mg PO DAILY bladder 10/01/21 [History Confirmed 07/18/23] acetaminophen 500 mg tablet 1,000 mg PO Q6H PRN Pain 04/05/22 [History Confirmed 07/18/23] metformin 1,000 mg tablet 1,000 mg PO BID dm 10/01/22 [History Confirmed 07/18/23] bisacodyl 5 mg tablet 5 mg PO QHS PRN constipation 01/29/23 [History Confirmed 07/18/23] melatonin 5 mg tablet 5 mg PO HS PRN sleep 01/29/23 [History Confirmed 07/18/23] sennosides 8.6 mg tablet (senna) 8.6 mg PO DAILY PRN constipation 01/29/23 [History Confirmed 07/18/23] bupropion HCl 150 mg tablet,12 hr sustained-release 150 mg PO Q12H 06/11/23 [History Confirmed 07/18/23] nicotine 21 mg/24 hr daily transdermal patch 1 patch transdermal Q24H 06/11/23 [History Confirmed 07/18/23] aspirin 81 mg tablet,delayed release 81 mg PO BREAKFAST #90 tabs 07/14/23 [Rx Confirmed 07/18/23] atorvastatin 40 mg tablet 40 mg PO QHS #90 tabs 07/14/23 [Rx Confirmed 07/18/23] clopidogrel 75 mg tablet 75 mg PO DAILY #90 tabs 07/14/23 [Rx Confirmed 07/18/23] metoprolol tartrate 25 mg tablet 12.5 mg (1/2 x 25 mg) PO BID #90 tabs 07/14/23 [Rx Confirmed 07/18/23] lidocaine-prilocaine 2.5 %-2.5 % topical cream 1 applic topical ONCE PRN port access 30 days #30 grams 07/17/23 [Rx Confirmed 07/18/23] ondansetron 8 mg disintegrating tablet 8 mg PO Q8H PRN nausea and vomiting #30 tabs 07/17/23 [Rx Confirmed 07/18/23] PFSH Medical History Abnormal gastrointestinal PET scan Adenomatous polyps Anemia Anxiety Arthritis Atherosclerosis of coronary artery of [place] heart without angina pectoris Back pain Black tarry stools Bladder disease Cancer Cancer of upper lobe of left lung Cardiology follow-up encounter Claudication Dietary restriction Diverticulosis Encounter for education Essential (primary) hypertension Fatigue Former smoker Gastritis GERD (gastroesophageal reflux disease) High cholesterol History of echocardiogram History of edema History of heart attack History of Holter monitoring History of stress test Hoarseness Hyperlipidemia Injury of head and neck Iron deficiency anemia Iron deficiency anemia due to chronic blood loss Leg cramps Low iron Lung mass Marijuana use Nicotine dependence Obesity Peripheral vascular occlusive disease Rectal bleeding Rheumatoid arthritis Smoker Subdural hematoma Subdural hemorrhage Type 2 diabetes mellitus Urinary incontinence Wears dentures Wears glasses Surgical History History of angioplasty of peripheral vessel History of cardiac catheterization History of cholecystectomy History of coronary artery stent placement (10/10/15) History of esophagogastroduodenoscopy (EGD) History of hysterectomy History of left heart catheterization (10/09/15) Hx of colonoscopy Hx of heart artery stent S/P craniotomy S/P craniotomy Family History Sister Diabetes Breast cancerBrother Cancer throat Hypertension Social History household members: none and other details: She has 2 sons who live locally and can help her and also has 2 sisters housing: apartment number of children: 2 current occupational status: employed 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 mary beht/holiness: Yarsani seatbelt use: always do you feel safe at home: Yes HPI HPI HPI: Patient is a 67-year-old female here with the lung cancer of the left side and needs port for treatment. ROS General General: Yes fatigue; No weight change, appetite, colon cancer, breast cancer or weakness HEENT HEENT: No difficulty swallowing, eye injury, eye surgery, swollen glands or bk rseness Endo Endocrine: Yes diabetes mellitus; No thyroid disease, thyroid cancer, Hair loss, heat intolerance or cold intolerance Skin Skin: No rash or changing moles Breast Breast: No left breast lump, right breast lump, nipple discharge, breast pain, abnormal mammogram, abnormal US or breast enlargement Musc Musculoskeletal: Yes arthritis and rheumatoid arthritis; No back problems, gout or joint pain Cardio Cardiovascular: Yes heart attack and heart stent; No murmur, pacemaker, heart disease, atrial fibrillation, high blood pressure, palpitations, shortness of breat with exertion or chest pain Psych Psychiatric: No depression, anxiety or hearing voices Resp Respiratory: No shortness of breath, No sleep apnea, No cough, No COPD, No asthma, No emphysema and No wheezing Gastro Gastrointestinal: No abdominal pain, No nausea or vomiting, No diarrhea, Yes constipation, No blood in stool, Yes acid reflux, No hemorrhoids, No ulcers, Yes gallbladder problem and No black,tarry stools Michael Hematologic: Yes blood thinners, No blood disorders, No bleeding, No anemia and No blood clots Neuro Neurologic: No system reviewed and no additional complaints, except as documented, No as per HPI, No abnormal gait, No abnormal hearing, No abnormal movements, No abnormal speech, No behavioral changes, No burning sensations, No confusion, No convulsions, No disequilibrium, No dizziness, No localized weakness, No frequent falls, No headache(s), No lack of coordination, No loss of vision, No memory loss, No numbness, No other visual disturbances, No radicular pain, No restless legs, No sensory deficit, No syncope, No tingling, No tremor(s), No weakness and No other Exam Const General: cooperative Orientation: alert and oriented x3 HENMT Head: normal to inspection Neck Neck: normal visual inspection and full ROM Chest Chest palpation & inspection: normal inspection of the chest Resp Effort & Inspection: normal respiratory effort Auscultation: clear to auscultation bilaterally Cardio Rate: regular rate Rhythm: regular rhythm GI Inspection: non-distended Palpation: soft and nontender Skin General: no rashes or lesions noted Neuro General: patient alert and patient oriented x3 Extrem General: full ROM Psych Appearance: grossly normal Mental Status: mental status grossly normal Assessment and Plan Assessment and Plan (1) Encounter for adjustment and management of vascular access device: Status: Acute Plan: I discussed chest replacement with the patient in detail. I discussed the risks including allergy to bleeding, infection, pneumothorax or blood clot. Patient or stands the risks and is willing to proceed. She will hold her blood thinners in preparation for surgery. Isreal Carvalho MD Pager: [facility] [address] [place] [address], [address] [place] [address] Office: I have examined the patient and the H&P has been reviewed. There are no clinical changes since date of exam.
[2023-07-22] MEDS: Cefazolin 2 GM in 0.9% Normal Saline (100mL Bag) 100 ML IV (12:17)
[2023-07-22] MEDS: Bupivacaine Mpf 0.5% 30 ML VIAL OPERA.SITE (12:43)
[2023-07-22] MEDS: Lidocaine 1% /Epi 1:100 (50ml) 50 ML VIAL INFILT (12:43)
--- NOTE | 2023-07-22 12:52 | OP.PCM_ITS ---
Report of Operation Date of Procedure: 07/22/23 Pre-Operative Diagnosis: Need for vascular access for chemotherapy Post-Operative Diagnosis: Same Surgery/Procedure Performed:: Ultrasound and fluoroscopy guided right chest port placement utilizing right IJ Type of Anesthesia: Local MAC Estimated Blood Loss (mL): 5 Description of Procedure: After obtaining informed consent patient was brought back to the operating room MAC anesthesia was induced and the right chest and neck were prepped in normal sterile fashion. Ultrasound was used to evaluate both IJs and the right IJ was selected. Next, using a needle, the right IJ was accessed and a guidewire was passed on into the superior vena cava under fluoroscopy guidance. A small incision was made over the puncture site and the dilator introducer was placed over the guidewire. Next this was capped and the pocket was made for the port. 1% lidocaine with epinephrine was injected in the proposed port site. An incision was made with scalpel. Electrocautery was used to make a pocket under the skin and subcutaneous tissue. Hemostasis was obtained. Next, the catheter was tunneled up to the neck incision site and placed through the introducer. The peel-away introducer was removed and the position of the catheter was confirmed on fluoroscopy. Next, the catheter was trimmed and attached to the port with the locking device. Interrupted 2-0 Vicryl sutures were used to anchor the port to the chest wall and then the port was placed inside the pocket. The pocket was then flushed with saline and the port irrigated with saline. There was good blood return and the port flushed easily. Next, heparin was injected into the port. The skin was closed with subcutaneous interrupted 3-0 Vicryl sutures. A single 3-0 Vicryl sutures placed under the skin at the neck incision site. Steri-Strips were placed as well as op sites. Patient tolerated procedure well, was taken to PACU in stable condition. Chest x-ray will be obtained. Grafts/Implants Used: 8 [place] PowerPort Admit VTE Documentation VTE Mechan Device Prophylaxis: SCD's
[2023-07-22 12:53] LABS: Bedside Glucose 125 mg/dL (74-106)
--- NOTE | 2023-07-22 12:53 | DCINST_ITS ---
Discharge Instructions Procedure Port-A-Cath Diet Discharge Diet: Light diet - advance as tolerated (Pain medication may cause nausea. You should typically eat light foods as you take your pain medication.) Activity Discharge Activity: Return to Normal Activity and May Shower (with your bandage in place in 1-2 days after surgery. DO NOT SHOWER WHEN YOUR PORT IS ACCESSED.) Dressing / Incision Call your doctor if your incision/area has: Continuous Slow Oozing, Sudden Increased Bleeding, Increased Pain/ Swelling, Increased Redness and Foul Smelling Discharge Call your doctor if you observe: Fever of 101 or Higher Remove Dressing in: 2 days Cleanse incision/area with: Soap & Water Follow Up Care Please Follow Up With: Isreal Carvalho MD When: as needed [phone] Test Results: Test results from this visit will be discussed in further detail at your follow- up appointment, if applicable. Discharge Plan Admission Attending Provider: Isreal Carvalho Primary Care Provider: Ludwin Christianson Instructions Additional Instructions / Restrictions: Alternate ibuprofen and Tylenol for pain. Resume blood thinners on Discharge Orders/Prescriptions Prescriptions: No Action metformin 1,000 mg tablet 1,000 mg PO BID oxybutynin chloride 15 mg tablet extended release 24hr 15 mg PO DAILY Patient Comments: TAKE 1 TABLET BY MOUTH DAILY sennosides [senna] 8.6 mg tablet 8.6 mg PO DAILY PRN (Reason: constipation) bisacodyl 5 mg tablet 5 mg PO QHS PRN (Reason: constipation) melatonin 5 mg tablet 5 mg PO HS PRN (Reason: sleep) ondansetron 8 mg tablet,disintegrating 8 mg PO Q8H PRN (Reason: nausea and vomiting) Qty: 30 2RF lidocaine-prilocaine 2.5-2.5 % cream 1 applic topical ONCE PRN (Reason: port access) 30 Days Qty: 30 2RF acetaminophen 500 mg Tablet 1,000 mg PO Q6H PRN (Reason: Pain) bupropion HCl 150 mg tablet sustained-release 12 hr 150 mg PO Q12H Patient Comments: TAKE 1 TABLET BY MOUTH TWICE DAILY nicotine 21 mg/24 hr patch 24 hour 1 patch transdermal Q24H Patient Comments: apply 1 patch to the skin every 24 hours. Remove old patch aspirin 81 mg tablet,delayed release (DR/EC) 81 mg PO BREAKFAST Qty: 90 3RF atorvastatin 40 mg tablet 40 mg PO QHS Qty: 90 3RF clopidogrel 75 mg tablet 75 mg PO DAILY Qty: 90 3RF metoprolol tartrate 25 mg tablet 12.5 mg PO BID Qty: 90 3RF Referrals / Follow Up: Ludwin Christianson MD [Primary Care Provider] - Disposition Disposition (needs filled in before D/C Order can be placed): Home, Self Care
[2023-07-22 12:55] VITALS: BP 110/64; BP 138/55; PULSE 70; RESP 18; TEMP 36.2; O2SAT 94
--- NOTE | 2023-07-22 13:00 | RAD_ITS ---
STUDY: X-RAY CHEST REASON FOR EXAM: Female, 67 years old. Line placement -- in pacu TECHNIQUE: Single AP portable view of the chest. COMPARISON: Comparison is made with prior study June 11, 2023. FINDINGS: A right-sided heena catheter is in situ with the tip at the junction of the superior vena cava and right atrium. EKG electrodes are seen. There is a 2.5 cm x 2.4 cm nodule in the left suprahilar region. There is no demonstrated pleural abnormality. Normal size heart. Normal mediastinum and henrik. Normal visualized pulmonary arteries. Normal visualized aortic arch and descending thoracic aorta. There are diffuse degenerative changes of the visualized thoracic spine. Normal visualized ribs, clavicles, and shoulders. There is no demonstrated abnormality of the visualized soft tissue structures of the upper abdomen. RAD/CXR for Line Placement IMPRESSION: The tip of the right-sided heena catheter is at the junction of the superior vena cava and right atrium. Persistent left suprahilar mass. Electronically Signed: Claude Nunez MD at 13:23 EST ,
[2023-07-22 13:05] VITALS: BP 112/73; BP 138/55; PULSE 68; RESP 12; O2SAT 93
[2023-07-22 13:10] VITALS: BP 114/69; BP 138/55; PULSE 68; RESP 12; O2SAT 94
[2023-07-22 13:14] VITALS: BP 120/54; BP 138/55; PULSE 68; RESP 18; TEMP 36.4; O2SAT 95
[2023-07-22 13:45] VITALS: BP 138/55
== END 2023-07-22 13:58 | disposition home or self-care (01) ==
LOC: SDC 10:56 → AC 10:57
PROVIDERS: PCP Family Medicine; Referring Provider Surgery; Visit Provider Surgery
PROC: (CPT 36561; principal; 2023-07-22 12:30)
DX: Z45.2 Encounter for adjustment and management of vascular access device (principal); C34.12 Malignant neoplasm of upper lobe, left bronchus or lung; E11.9 Type 2 diabetes mellitus without complications; I25.10 Atherosclerotic heart disease of native coronary artery without angina pectoris; I10 Essential (primary) hypertension; Z87.891 Personal history of nicotine dependence; E78.5 Hyperlipidemia, unspecified; E66.9 Obesity, unspecified; Z68.35 Body mass index [BMI] 35.0-35.9, adult; Z95.5 Presence of coronary angioplasty implant and graft; I25.2 Old myocardial infarction; Z90.710 Acquired absence of both cervix and uterus
CPT/HCPCS: 36561; 00532; 71045; 77001; 82962; J7120; C1788

== ENCOUNTER → 2023-07-24 | Outpatient (CLI) | payer MEDICARE, SELFPAY ==
[2023-07-09 09:09] VITALS: BMI 34.4
--- NOTE | 2023-07-24 15:31 | MRI_ITS ---
EXAM: MR brain with and without contrast. HISTORY: staging for stage III NSCLC -- eval for metastases TECHNIQUE: MR Brain WO/W Contrast COMPARISON: Head CT June 11, 2023. LIMITATIONS: None. BRAIN: Mild encephalomalacia in the left temporal lobe. No diffusion abnormalities. Moderate white matter changes are nonspecific, but likely secondary to chronic microvascular ischemia. No enhancing lesions to suggest metastatic disease. VENTRICLES: No hydrocephalus. EXTRA-AXIAL SPACES: No acute hemorrhage. Diffuse mild dural thickening may be postsurgical. CALVARIUM/SKULL BASE: Postsurgical changes after craniotomy bilaterally. FACE/SINUSES: Visualized portions normal. SOFT TISSUES: Normal. OTHER: None. CONCLUSION: Postsurgical changes. Mild encephalomalacia in the left temporal lobe. No evidence of metastatic disease. Electronically Signed: Adrián Del Rosario MD at 2:05 EST , MRI/Brain W/WO Contrast IMPRESSION: undefined
[2023-07-24 16:13] LABS: CREATININE FINGERSTICK 1.2 mg/dL (0.55-1.02)
== END | disposition home or self-care (01) ==
PROVIDERS: PCP Family Medicine; Referring Provider Student in an Organized Health Care Education/Training Program; Visit Provider Student in an Organized Health Care Education/Training Program
DX: C34.12 Malignant neoplasm of upper lobe, left bronchus or lung (principal)
CPT/HCPCS: 70553; A9575

== ENCOUNTER → 2023-09-24 | Outpatient (CLI) | payer MEDICARE, SELFPAY ==
[2023-09-24 12:17] LABS: Absolute Lymphocyte Count 0.43 X10^3/uL (0.83-4.51); Basophil# 0.03 X10^3/uL; Basophil% 0.7 % (0-1); Eosinophil# 0.05 X10^3/uL; Eosinophils% 1.2 % (0-5); Hematocrit 33.5 % (37-47); Hemoglobin 10.3 g/dL (12.0-15.0); Lymphocyte # 0.43 X10^3/ul (0.83-4.51); Lymphocyte % 10.3 % (19-41); Mean Corp Hgb Conc 30.7 g/dL (32-36); Mean Corpuscular Volume 107.4 fL (81-99); Monocyte# 0.57 X10^3/uL; Monocyte% 13.7 % (0-10); NRBC Flagged by Analyzer 0 % (0-5); Neutrophil # 3.04 X10^3/uL (2.7-7.7); Neutrophil % 73.1 % (47-70); POSITIVE DIFFERENTIAL YES; POSITIVE MORPHOLOGY YES; Platelet Count 244 K/mm3 (150-450); RBC Distribution Width CV 20.2 % (11.6-14.6); RBC Distribution Width SD 78.7 fl (35.1-43.9); Red Blood Count 3.12 M/mm3 (4.2-5.4); White Blood Count 4.2 K/mm3 (4.4-11.0)
[2023-09-24 12:20] LABS: Differential Indicated SCAN CRITERIA MET
[2023-09-24 12:49] LABS: Vitamin D,25 Hydroxy 19.5 ng/mL
[2023-09-24 12:50] LABS: Differential Comment SCANNED
[2023-09-24 12:51] LABS: ALB/GLOB Ratio 0.9 RATIO (0.9-2.4); AST(SGOT) 12 U/L (15-37); Alanine Aminotransfer ALT/SGPT 28 U/L (13-56); Albumin, Serum 3.4 g/dL (3.2-5.0); Alkaline Phosphatase 61 U/L (45-117); Anion Gap 3 (5-15); Anisocytosis 2+; BUN 12 mg/dL (7-18); BUN/Creat Ratio 15.3 RATIO (10-20); Calcium,Total 8.7 mg/dL (8.5-10.1); Chloride 109 mmol/L (98-107); Cholesterol 102 mg/dL (200); Creatinine, Serum 0.78 mg/dL (0.55-1.02); EST Glomerular Filtration Rate 77 mL/min (>60); Est Glom Filt Rate - Afr Amer 94 mL/min (>60); Globulin 3.7 g/dL (2.2-4.2); Glucose 148 mg/dL (74-106); High Density Lipoprotein 46 mg/dL; Macrocytosis 1+; Microcytosis 1+; Potassium 4.2 mmol/L (3.5-5.1); Protein, Total 7.1 g/dL (6.4-8.2); Sodium Level 135 mmol/L (136-145); Triglycerides 194 mg/dL; Very Low Density Lipoprotein 39 mg/dL (5-40)
[2023-09-24 13:23] LABS: Hemoglobin A1c 6.2 % (3.8-5.6)
== END | disposition home or self-care (01) ==
LOC: MFPLAB 11:12
PROVIDERS: PCP Family Medicine; Visit Provider Family Medicine
DX: E11.8 Type 2 diabetes mellitus with unspecified complications (principal); E55.9 Vitamin D deficiency, unspecified
CPT/HCPCS: 36415; 80053; 80061; 82306; 83036; 85025

== ENCOUNTER → 2023-09-25 | Outpatient (CLI) | payer MEDICARE, SELFPAY ==
[2023-09-25 13:44] LABS: Mucous, Urine 0 SEEN /hpf (<or=2+); Red Blood Cells-Urine 0 SEEN /hpf (0-5); Squamous Epithelial Cells - UA 0 SEEN /hpf (5-10)
[2023-09-25 15:17] LABS: Color, Urine Yellow (Yellow); Glucose, Dipstick Normal (Normal); Ketone-Dipstick Negative (Negative); Leukocyte Esterase-Dipstick 500 /ul (Negative); Nitrite-Dipstick Positive (Negative); Occult Blood-Urine 25 /ul (Negative); Protein-Dipstick 30 mg/dl (Negative); Specific Gravity, Urine 1.025 (1.002-1.030); Urine Bilirubin Dipstick Negative (Negative); Urine Clarity Cloudy (Clear); Urine Urobilinogen Normal (Normal)
[2023-09-25 15:34] LABS: Bacteria 3+ /hpf (None Seen); White Blood Cells >100 SEEN /hpf (0-5)
[2023-09-25 15:49] LABS: Microalbumin:Creatinine Ratio 73.1 mg/g CRE (<30 mg/g CRE)
== END | disposition home or self-care (01) ==
LOC: MFPLAB 13:43
PROVIDERS: PCP Family Medicine; Visit Provider Family Medicine
DX: E55.9 Vitamin D deficiency, unspecified (principal); E11.21 Type 2 diabetes mellitus with diabetic nephropathy
CPT/HCPCS: 81001; 82043; 82570

== ENCOUNTER → 2023-11-28 | Outpatient (CLI) | payer MEDICARE, SELFPAY ==
--- NOTE | 2023-11-28 11:45 | RAD_ITS ---
INDICATION: history of pneumonia EXAMINATION/TECHNIQUE: X-RAY - XR Chest 2 Views COMPARISON: July 22, 2023. FINDINGS: LINES/DEVICES: Unchanged right chest port.. LUNGS: Lungs mildly hyperexpanded on lateral view. Linear atelectasis or scarring in the left upper lung. No consolidation, florid edema or effusion. No pneumothorax. MEDIASTINUM AND CARDIOVASCULAR STRUCTURES: Cardiac silhouette not enlarged. BONES AND SOFT TISSUES: Unremarkable. RAD/Chest PA and Lateral IMPRESSION: Mild hyperexpansion as can be seen with chronic obstructive pulmonary disease. New linear atelectasis or scarring in the left upper lung. Electronically Signed: Claudio Berger MD at 19:09 EDT ,
[2023-11-28 15:44] LABS: Absolute Lymphocyte Count 0.78 X10^3/uL (0.83-4.51); Absolute Neutrophil Count 4.2 X10^3/uL (2.0-7.7); Basophil# 0.04 X10^3/uL; Basophil% 0.7 % (0-1); Eosinophil# 0.12 X10^3/uL; Eosinophils% 2.1 % (0-5); Hematocrit 33.6 % (37-47); Lymphocyte # 0.78 X10^3/ul (0.83-4.51); Lymphocyte % 13.6 % (19-41); Mean Corp Hgb Conc 29.8 g/dL (32-36); Mean Corpuscular Volume 100.9 fL (81-99); Mean Platelet Vol. 9.8 fl (6.2-12.0); Monocyte# 0.55 X10^3/uL; Monocyte% 9.6 % (0-10); NRBC Flagged by Analyzer 0 % (0-5); Neutrophil # 4.22 X10^3/uL (2.7-7.7); Neutrophil % 73.5 % (47-70); Platelet Count 322 K/mm3 (150-450); RBC Distribution Width CV 16.8 % (11.6-14.6); Red Blood Count 3.33 M/mm3 (4.2-5.4); White Blood Count 5.7 K/mm3 (4.4-11.0)
[2023-11-28 16:13] LABS: ALB/GLOB Ratio 0.8 RATIO (0.9-2.4); AST(SGOT) 18 U/L (15-37); Alanine Aminotransfer ALT/SGPT 20 U/L (13-56); Albumin, Serum 3.2 g/dL (3.2-5.0); Alkaline Phosphatase 63 U/L (45-117); Anion Gap 6 (5-15); BUN 12 mg/dL (7-18); BUN/Creat Ratio 13.5 RATIO (10-20); Calcium,Total 9.3 mg/dL (8.5-10.1); Chloride 104 mmol/L (98-107); Creatinine, Serum 0.89 mg/dL (0.55-1.02); EST Glomerular Filtration Rate 67 mL/min (>60); Est Glom Filt Rate - Afr Amer 81 mL/min (>60); Globulin 4.2 g/dL (2.2-4.2); Glucose 160 mg/dL (74-106); Potassium 4.1 mmol/L (3.5-5.1); Protein, Total 7.4 g/dL (6.4-8.2); Sodium Level 136 mmol/L (136-145)
== END | disposition home or self-care (01) ==
LOC: MTLAB 11:43
PROVIDERS: PCP Family Medicine; Referring Provider Family Medicine; Visit Provider Family Medicine
DX: J18.9 Pneumonia, unspecified organism (principal)
CPT/HCPCS: 36415; 71046; 80053; 85025

== ENCOUNTER → 2023-12-18 | Outpatient (CLI) | payer MEDICARE, SELFPAY ==
--- NOTE | 2023-12-18 07:33 | CT_ITS ---
STUDY: CT CHEST WITH CONTRAST REASON FOR EXAM: Female, 67 years old. BILATERAL LOWER LOBES NODULES -- IV CONTRAST ONLY RADIATION DOSAGE (If Supplied By Facility): CTDIvol = ( 14.63 ) mGy, DLP = ( 528.73 ) mGycm TECHNIQUE: Transaxial imaging was performed following intravenous administration of IV 100mL Isovue-370. Multiplanar coronal and sagittal images were reformatted. Individualized dose optimization techniques were used for this CT. COMPARISON: Comparison is made with prior examination dated April 01, 2023. FINDINGS: CHEST A right-sided portacatheter is seen with the tip in the superior vena cava. There is a 1 cm hypodensity in the lower pole of the left thyroid lobe adjacent to the isthmus. The previously seen mass lesion in the left upper lobe along its medial aspect abutting the mediastinum has decreased in size. It presently measures once by 2.4 cm. Minimal linear markings in the lateral aspect of the left upper lobe at the same level most likely representing scarring. There is evidence of airspace disease in the left upper lobe most likely secondary to post radiation fibrosis and/or pneumonitis. Multiple noncalcified nodules are seen in the right lower lobe and scattered nodules in the left lower lobe. These nodules have increased in size and number as compared to prior study. The largest nodule in the posterior aspect of the right lower lobe measures 1.2 cm x 1.1 cm. There is no demonstrated pleural abnormality. There are calcifications of the coronary arteries. Stable borderline enlargement of the pretracheal lymph node. Normal hilar regions. There is prominence of the pulmonary hilar arteries without peripheral pulmonary vascular congestion, suggesting pulmonary hypertension. Normal aorta arch and descending thoracic aorta. There are multi-level degenerative changes of the thoracic spine. Heterogeneous appearance of the thoracic vertebrae. There is no demonstrated abnormality of the visualized upper abdomen. CT/Chest WITH Contrast IMPRESSION: Interval decrease in size of the previously seen mass lesion in the left upper lobe with findings suggestive of a radiation pneumonitis and/or scarring in the left upper lobe. Progressive increase in size and numbers of the pulmonary nodules at the right lung base. Scattered nodules in the left lower lobe. Electronically Signed: Claude Nunez MD at 15:25 EDT ,
== END | disposition home or self-care (01) ==
PROVIDERS: PCP Family Medicine; Referring Provider Internal Medicine Hematology & Oncology; Visit Provider Internal Medicine Hematology & Oncology
DX: R91.8 Other nonspecific abnormal finding of lung field (principal)
CPT/HCPCS: 71260; Q9967; A4216

== ENCOUNTER → 2023-12-26 | Outpatient (CLI) | payer MEDICARE, SELFPAY ==
[2023-12-26 12:52] LABS: Absolute Lymphocyte Count 0.67 X10^3/uL (0.83-4.51); Absolute Neutrophil Count 3.8 X10^3/uL (2.0-7.7); Basophil# 0.02 X10^3/uL; Basophil% 0.4 % (0-1); Eosinophil# 0.07 X10^3/uL; Eosinophils% 1.4 % (0-5); Hemoglobin 11.2 g/dL (12.0-15.0); Lymphocyte # 0.67 X10^3/ul (0.83-4.51); Lymphocyte % 13.2 % (19-41); Mean Corp Hgb Conc 30.3 g/dL (32-36); Mean Corpuscular Hgb 30.1 pg (27.0-32.0); Mean Corpuscular Volume 99.5 fL (81-99); Mean Platelet Vol. 9.2 fl (6.2-12.0); Monocyte# 0.46 X10^3/uL; Monocyte% 9.1 % (0-10); NRBC Flagged by Analyzer 0 % (0-5); Neutrophil # 3.83 X10^3/uL (2.7-7.7); Neutrophil % 75.5 % (47-70); Platelet Count 305 K/mm3 (150-450); RBC Distribution Width CV 16.2 % (11.6-14.6); Red Blood Count 3.72 M/mm3 (4.2-5.4); White Blood Count 5.1 K/mm3 (4.4-11.0)
[2023-12-26 13:26] LABS: ALB/GLOB Ratio 0.9 RATIO (0.9-2.4); AST(SGOT) 17 U/L (15-37); Alanine Aminotransfer ALT/SGPT 21 U/L (13-56); Albumin, Serum 3.6 g/dL (3.2-5.0); Alkaline Phosphatase 62 U/L (45-117); Anion Gap 9 (5-15); BUN 16 mg/dL (7-18); BUN/Creat Ratio 21.2 RATIO (10-20); Calcium,Total 9.3 mg/dL (8.5-10.1); Chloride 105 mmol/L (98-107); Cholesterol 101 mg/dL (200); Creatinine, Serum 0.76 mg/dL (0.55-1.02); EST Glomerular Filtration Rate 81 mL/min (>60); Est Glom Filt Rate - Afr Amer 98 mL/min (>60); Globulin 3.8 g/dL (2.2-4.2); Glucose 188 mg/dL (74-106); High Density Lipoprotein 50 mg/dL; Potassium 4.1 mmol/L (3.5-5.1); Protein, Total 7.4 g/dL (6.4-8.2); Sodium Level 139 mmol/L (136-145); Triglycerides 142 mg/dL; Very Low Density Lipoprotein 28 mg/dL (5-40); Vitamin D,25 Hydroxy 83.4 ng/mL
== END | disposition home or self-care (01) ==
LOC: MTLAB 11:25
PROVIDERS: PCP Family Medicine; Referring Provider Family Medicine; Visit Provider Family Medicine
DX: E55.9 Vitamin D deficiency, unspecified (principal); E11.21 Type 2 diabetes mellitus with diabetic nephropathy
CPT/HCPCS: 36415; 80053; 80061; 82043; 82306; 82570; 83036; 85025

== ENCOUNTER → 2023-12-30 | Outpatient (CLI) | payer MEDICARE, SELFPAY ==
[2023-12-30 17:45] LABS: Microalbumin,Random Urine < 5.0 mg/L (NO RANGE EST.)
== END | disposition home or self-care (01) ==
LOC: MTLAB 14:18
PROVIDERS: PCP Family Medicine; Referring Provider Family Medicine; Visit Provider Family Medicine
DX: E55.9 Vitamin D deficiency, unspecified (principal); E11.21 Type 2 diabetes mellitus with diabetic nephropathy
CPT/HCPCS: 82043; 82570

== ENCOUNTER → 2024-01-16 | Outpatient (CLI) | payer MEDICARE, SELFPAY ==
[2024-01-16] VITALS (15 sets, daily range): BP systolic 85–157; BP diastolic 33–95; PULSE 69–84; RESP 13–18; TEMP 36.2; O2SAT 94–98; BMI 32.9
--- NOTE | 2024-01-16 | ASPIGT_PTH ---
PATIENT: KAELYN DRUMMOND LOC: [place] U#:[id number] AGE/SX: 68/F ROOM: RE01/16/[address]: Dr. Brennen Roth DO : 1955 BED: DIS: 01/16/2024 SPEC #: [id number] RECD: 01/16/24 13:38 STATUS: VALERIO ROBERT #: [id number] RYDER: 01/16/24 00:[address]: Brennen Roth DEPT: SURGICAL PATHOLOGY RECD BY: Oswald Olmos ENTERED: 01/16/24 13:38 SP TYPE: ASP RAD OT DR: MD Riya Gould, GENERAL FOREMAN-C Tissues: Lung, NOS Procedures: FNA Specimen Adequacy Special Stain Group II Surgery Specimen Level IV Imprint (control) HEADER OPERATION: Right lower lung nodule PRE-OP DIAGNOSIS: Right lung biopsy TISSUE SUBMITTED: 20-guage x5 MICROSCOPIC DIAGNOSIS Right lung mass, CT guided core biopsy: Atypical epithelial cells highly suspicious for malignancy. See comment. / 01/21/2024 COMMENT The specimen is evaluated at the time of biopsy by Dr. Quinones. Immediate Evaluation = Atypical epithelial cells present. Immunohistochemistry ([id number]) supports the above diagnosis. Case has been reviewed in consultation with Dr. Murillo who concurs with the above diagnosis. IDC:SJ MICROSCOPIC DESCRIPTION Slides are reviewed. GROSS DESCRIPTION Received is one container labeled with the patient's name and not further designated. The specimen consists of multiple minute fragments of light mcmahon soft tissue measuring in aggregate 0.5 x <0.1 x <0.1cm. The specimen is totally submitted in one cassette. / 01/16/2024 TC:0 CPT:42120,54680
--- NOTE | 2024-01-16 | IMM_PTH ---
PATIENT: KAELYN DRUMMOND LOC: CT U#:[id number] AGE/SX: 68/F ROOM: RE01/16/[address]: Dr. Brennen Roth DO : 1955 BED: DIS: 01/16/2024 SPEC #: [id number] RECD: 01/19/24 10:35 STATUS: VALERIO REQ #: [id number] RYDER: 01/16/24 00:[address]: Brennen Roth DEPT: IMMUNOHISTOCHEMISTRY RECD BY: Kameron Barbosa ENTERED: 01/19/24 10:36 SP TYPE: IMMUNO OTHR DR: MD Riya Gould, HOSE TENDER-C Tissues: Lung, NOS Procedures: NAPSIN A (add) CK20 (add) CK5-6 (add) CK7 (add) CK8 (add) KI-67 (add) P53 (add) TTF1 (add) Pankeratin (initial) PHYSICIAN & [address] [address] SPECIMEN INFORMATION: Tissue Source: Right lower lung, biopsy Clinical Info: Right lung biopsy Specimen Number: [id number] CPT code: 62198,71138c6 METHODOLOGY: Deparaffinized sections of prefer/formalin-fixed tissue or PAP/DQ stained slides are incubated with monoclonal/polyclonal antibodies/oligonucleotide probes. Localization is made via biotin free immunoperoxidase method. Appropriate controls are performed and reacted as expected. Results on target cell population are indicated in the following table: RESULTS: ANTIBODY / CLONE RESULT AE1-3 (AE1/AE3/PCK26) positive CK7 (OV-TL12/30) positive CK8 (66fvqrR98) positive CK20 (KS20.8) negative TTF-1 (8G7G3/1) positive Napsin A (Rabbit Polyclonal) positive CK5-6 (D5 & 1684) negative P53 (DO-7) negative, wild type Ki-67 (30-9) positive, rare cells These tests were developed and their performance characteristics determined by [facility]. They may not have been cleared or approved by the U.S. Food and Drug Administration. The FDA has determined that such clearance or approval is not necessary. The above immunohistochemical/dualISH markers are ordered and reviewed by the Pathologist. INTERPRETATION: Right lower lung, biopsy: Atypical epithelial cells suspicious for malignancy. ROLF/ 01/21/24
[2024-01-16 09:19] LABS: Platelet Count 283 K/mm3 (150-450)
[2024-01-16 09:28] LABS: Prothrombin Time (Protime)PT. 13.4 SECONDS (11.7-14.9)
[2024-01-16 09:29] LABS: Partial Thromboplast Time 30.5 Seconds (24.1-36.2)
[2024-01-16] MEDS: 0.9% Normal Saline (250mL Bag) 250 ML 15 ML IV (10:07)
[2024-01-16] MEDS: Midazolam 2 MG/2 ML Syringe IV (10:08)
[2024-01-16] MEDS: fentaNYL 100 MCG/2 ML Ampul IV (10:10)
[2024-01-16] MEDS: Lidocaine 2% (20 ml mdv) 20 ML Vial INFILT (10:25)
--- NOTE | 2024-01-16 10:33 | RAD_ITS ---
STUDY: X-RAY CHEST REASON FOR EXAM: Female, 68 years old. Immediate post lung biopsy -- Immediately post lung biopsy TECHNIQUE: AP inspiration and expiration views. COMPARISON: Comparison is made with prior study dated November 28, 2023. FINDINGS: There is no evidence of pneumothorax on the immediate post right lung biopsy radiographs. RAD/Chest Insp/Exp 2 View IMPRESSION: No evidence of pneumothorax on the immediate post right lung biopsy radiographs. Electronically Signed: Claude Nunez MD at 10:52 EDT ,
--- NOTE | 2024-01-16 11:12 | PCM.OP.PRO ---
Procedure Report Date of Procedure: 01/16/24 Assessment & Plan Assessment/Plan (1) Lung nodules: PLAN: PROCEDURE: CT GUIDED CORE NEEDLE LUNG BIOPSY ORDERING PROVIDER: Dr. Roth INDICATION: Female, 68 years old. Multiple lung nodules. PROVIDER: SONIA Telles CONSENT: Written informed consent was obtained having explained the risks, benefits and alternatives in detail with the patient and who accepted the risks and agreed to proceed. Laboratory review and clinical assessment was performed. PRE-PROCEDURE SEDATION ASSESSMENT: Current history and physical dictated by referring physician and reviewed. No clinical changes since date of exam. Patient has an ASA Class of 2. PROCEDURAL SEDATION PROTOCOL: The Drugs used were: 2 mg Versed, IV, and 50 mcg Fentanyl, IV. The sedation time was: 20 minutes, starting at 1008 and terminated at 1028. The procedural sedation protocol was independently monitored by the department nurse. RADIATION DOSAGE (If Supplied By Facility): CTDIvol = 20.69 mGy, DLP = 530.13 mGycm Individualized dose optimization techniques were used for this CT. TECHNIQUE: The patient was placed in a prone position. A noncontrast CT was performed to localize the lesion in the right lower lobe. The skin surface was prepped and draped in a sterile fashion. 2% lidocaine was used for local anesthesia. Using CT guidance, a 20-gauge coaxial biopsy device was advanced to the periphery of the lesion. A total of 5 core specimens were obtained. Specimens were microscopically reviewed by pathology in the CT suite and placed in formalin solution. BioSentry tract sealant system was deployed at the biopsy site, and the biopsy needle was removed. A sterile occlusive dressing was applied to the biopsy site. The patient tolerated the procedure well. An immediate chest xray was ordered, per protocol. A negative biopsy does not exclude malignancy. Further imaging or clinical followup based on patient condition and degree of clinical suspicion for malignancy. Suggest rebiopsy, if biopsy results do not match with clinical scenario. IMPRESSION: 1. CT directed core needle biopsy of right lower lobe nodule using CT image guidance with image documentation as described. Pathology results are pending. 2. Procedural Sedation protocol utilized with independent monitoring by the department nurse. Procedures Radiology CF Procedures 7XXXX-7XXXX: 26142-69 CT guidance parenchymal tissue Radiology CT Procedures: 61580 Biopsy Lung
--- NOTE | 2024-01-16 12:25 | RAD_ITS ---
STUDY: X-RAY CHEST REASON FOR EXAM: Female, 68 years old. 2 hour post lung biopsy -- 2 hours post lung biopsy TECHNIQUE: AP inspiration and expiration views. COMPARISON: Comparison is made with prior study done earlier in the day. FINDINGS: There is no evidence of pneumothorax on the 2 hour post right lung biopsy radiographs. RAD/Chest Insp/Exp 2 View IMPRESSION: No evidence of pneumothorax on the two-hour post right lung biopsy radiographs. Electronically Signed: Claude Nunez MD at 13:21 EDT ,
== END | disposition home or self-care (01) ==
PROVIDERS: Nurse Practitioner Acute Care; PCP Family Medicine; Referring Provider Student in an Organized Health Care Education/Training Program; Visit Provider Student in an Organized Health Care Education/Training Program
DX: Z01.818 Encounter for other preprocedural examination (principal); C34.12 Malignant neoplasm of upper lobe, left bronchus or lung; R91.8 Other nonspecific abnormal finding of lung field
CPT/HCPCS: 32408; 10021; 36415; 71046; 77012; 85049; 85610; 85730; 88161; 88172; 88305; 88313; 88341; 88342; 99156; J7050; A4216; C2613

== ENCOUNTER → 2024-02-11 | Outpatient (CLI) | payer MEDICARE, SELFPAY ==
[2024-02-11] VITALS (14 sets, daily range): BP systolic 87–148; BP diastolic 33–79; PULSE 66–78; RESP 12–18; TEMP 36.6; O2SAT 32–98; BMI 32.9
--- NOTE | 2024-02-11 | IMM_PTH ---
PATIENT: KAELYN DRUMMOND LOC: CT U#:[id number] AGE/SX: 68/F ROOM: RE02/11/[address]: Dr. Shannan Waldrop MD : 1955 BED: DIS: 02/11/2024 SPEC #: [id number] RECD: 02/11/24 09:58 STATUS: VALERIO REQ #: [id number] RYDER: 02/11/24 00:[address]: Shannan Waldrop DEPT: IMMUNOHISTOCHEMISTRY RECD BY: Kameron Barbosa ENTERED: 02/11/24 09:59 SP TYPE: IMMUNO OTHR DR: Dr. Ludwin Christianson MD Tissues: Lung, NOS Procedures: RCC (add) NAPSIN A (add) CK20 (add) CK5-6 (add) CK7 (add) CK8 (add) E-CAD (add) HEP PAR (add) HER2 TALIA (add) KI-67 (add) MAMM (add) P53 (add) WI (add) TTF1 (add) Pankeratin (add) GATA3 (add) P40 (add) ER (initial) PHYSICIAN & INSTITUTION [place] [id number] SPECIMEN INFORMATION: Tissue Source: Right lung CT core biopsy Clinical Info: Other nonspecific abnormal finding of lung field Specimen Number: [id number] CPT code: 74426,82400w53 METHODOLOGY: Deparaffinized sections of prefer/formalin-fixed tissue or PAP/DQ stained slides are incubated with monoclonal/polyclonal antibodies/oligonucleotide probes. Localization is made via biotin free immunoperoxidase method. Appropriate controls are performed and reacted as expected. Results on target cell population are indicated in the following table: RESULTS: ANTIBODY / CLONE RESULT E-Cad (ECH-6) positive Mammaglobin (31A5) negative GATA3 (L50-823) negative AE1-3 (AE1/AE3/PCK26) positive CK7 (OV-TL12/30) positive CK8 (50azwaZ27) positive CK20 (KS20.8) negative TTF-1 (8G7G3/1) positive Napsin A (Rabbit Polyclonal) positive HepPar (OCh1E5) negative RCC (PN-15) negative CK5-6 (D5 & 1684) negative P40 (BC28) negative P53 (DO-7) positive focal ( wild type pattern) Ki-67 (30-9) positive, ~20% ER (clone 6F11) negative WI (clone 16/1E2) negative Her-2Neu (clone CB11) negative INTERPRETATION: Right lung, CT guided core biopsy: Non- small carcinoma, 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 SJ/mr 02/13/2024
[2024-02-11 08:05] LABS: Absolute Lymphocyte Count 0.85 X10^3/uL (0.83-4.51); Absolute Neutrophil Count 4.9 X10^3/uL (2.0-7.7); Basophil# 0.03 X10^3/uL; Basophil% 0.5 % (0-1); Eosinophil# 0.08 X10^3/uL; Eosinophils% 1.2 % (0-5); Lymphocyte # 0.85 X10^3/ul (0.83-4.51); Mean Corp Hgb Conc 30.8 g/dL (32-36); Mean Corpuscular Hgb 29.6 pg (27.0-32.0); Mean Corpuscular Volume 96.1 fL (81-99); Mean Platelet Vol. 9.2 fl (6.2-12.0); Monocyte# 0.71 X10^3/uL; Monocyte% 10.9 % (0-10); NRBC Flagged by Analyzer 0 % (0-5); Neutrophil # 4.85 X10^3/uL (2.7-7.7); Neutrophil % 74.1 % (47-70); Platelet Count 302 K/mm3 (150-450); RBC Distribution Width CV 16.2 % (11.6-14.6); RBC Distribution Width SD 57.2 fl (35.1-43.9); Red Blood Count 4.06 M/mm3 (4.2-5.4); White Blood Count 6.5 K/mm3 (4.4-11.0)
[2024-02-11] MEDS: 0.9% Normal Saline (250mL Bag) 250 ML 15 ML IV (09:05)
[2024-02-11] MEDS: fentaNYL 100 MCG/2 ML Ampul IV (09:10)
[2024-02-11] MEDS: Midazolam 2 MG/2 ML Syringe IV (09:10)
[2024-02-11] MEDS: Lidocaine 2% (20 ml mdv) 20 ML Vial INFILT (09:15)
[2024-02-11 09:23] LABS: Prothrombin Time (Protime)PT. 13.6 SECONDS (11.7-14.9)
--- NOTE | 2024-02-11 09:30 | RAD_ITS ---
STUDY: X-RAY CHEST REASON FOR EXAM: Female, 68 years old. Immediate post lung biopsy -- Immediately post lung biopsy TECHNIQUE: AP inspiration and expiration views. COMPARISON: Comparison is made with prior study dated January 16, 2024. FINDINGS: The patient is status post right lung biopsy. No evidence of pneumothorax. RAD/Chest Insp/Exp 2 View IMPRESSION: No evidence of pneumothorax on the 2 hour post right lung biopsy radiographs. Electronically Signed: Claude Nunez MD at 10:04 EDT ,
--- NOTE | 2024-02-11 09:40 | ASPIGT_PTH ---
PATIENT: KAELYN DRUMMOND LOC: [place] U#:[id number] AGE/SX: 68/F ROOM: RE02/11/[address]: Dr. Shannan Waldrop MD : 1955 BED: DIS: 02/11/2024 SPEC #: [id number] RECD: 02/11/24 10:39 STATUS: VALERIO REHernan #: [id number] RYDER: 02/11/24 09:[address]: Shannan Waldrop DEPT: SURGICAL PATHOLOGY RECD BY: Nancy Bailon ENTERED: 02/11/24 10:44 SP TYPE: ASP RAD OTHR DR: Dr. 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 See comment. CAMILA/ 02/13/2024 COMMENT Immunohistochemistry ([id number]) supports the above diagnosis and consistent with lung primary. Mucin stain with matched control was used in the evaluations of this case, tumor cells are focally positive for mucin and extravasated mucin is also noted. Please make reference to previous specimens [id number] left upper lobe lung mass, CT guided core biopsy diagnosis of non-small cell carcinoma, favor adenocarcinoma with mucinous differentiation and [id number] right lung mass, core biopsy diagnosis of atypical epithelial cells highly suspicious for malignancy. The specimen is evaluated at the time of biopsy by Dr. Murillo. Immediate Evaluation = Atypical cell noted suspicious for non-small cell carcinoma. MICROSCOPIC DESCRIPTION Slides are reviewed. GROSS DESCRIPTION Received in fixative is one container labeled with the patient's name and designated Right lower lobe lung mass. The specimen consists of multiple irregular fragments of mcmahon soft tissue that in aggregate measure 1.0 x 0.1 x <0.1 cm. The specimen is totally submitted in one cassette. Three touch imprints are prepared at the time of core biopsy. CAMILA/ 02/11/2024 TC:0 [facility]:[id number] ADDENDUM ADDENDUM ADDENDUM ADDENDUM ADDENDUM ADDENDUM 02/20/2024 08:16 ADDENDUM 02/20/2024 08:16 ADDENDUM 02/20/2024 08:16 ADDENDUM 02/20/2024 08:16 ADDENDUM 02/20/2024 08:16 ADDENDUM 02/26/2024 08:17 PD-L1 (KEYTRUDA) IMMUNOHISTOCHEMICAL ANALYSIS FROM [facility] RESULTS: Tumor proportion score: 3% / positive Please see complete report in e-chart or E[facility] N[facility] REPORT FROM [facility] RESULT SUMMARY: QNS TUMOR TYPE: Non-small cell lung carcinoma CLINICAL INFORMAITON: Right lower lung lobe mass core biopsy showed non-small carcinoma, favor well differentiated adenocarcinoma. Immunohistochemistry was consistent with lung primary. HISTOPATHOLOGIC REVIEW: Tumor is present and is estimated to comprise >50% of nuclei in the sample. Please see complete report in e-chart or EMR
--- NOTE | 2024-02-11 10:00 | PCM.OP.PRO ---
Procedure Report Date of Procedure: 02/11/24 Assessment & Plan Assessment/Plan (1) Lung nodules: PLAN: PROCEDURE: CT GUIDED CORE NEEDLE LUNG BIOPSY ORDERING PROVIDER: Dr. Waldrop INDICATION: Female, 68 years old. Right lower lobe lung nodule. PROVIDER: SONIA Telles CONSENT: Written informed consent was obtained having explained the risks, benefits and alternatives in detail with the patient who accepted the risks and agreed to proceed. Laboratory review and clinical assessment was performed. PRE-PROCEDURE SEDATION ASSESSMENT: Current history and physical dictated by referring physician and reviewed. No clinical changes since date of exam. Patient has an ASA Class of 2. PROCEDURAL SEDATION PROTOCOL: The Drugs used were: 2 mg Versed, IV, and 50 mcg Fentanyl, IV. The sedation time was: 30 minutes, starting at 9:10 AM and terminated at 9:40 AM. The procedural sedation protocol was independently monitored by the department nurse. RADIATION DOSAGE (If Supplied By Facility): CTDIvol = 19.66 mGy, DLP = 482.23 mGycm Individualized dose optimization techniques were used for this CT. TECHNIQUE: The patient was placed in a prone position. A noncontrast CT was performed to localize the lesion in the right lower lobe. The skin surface was prepped and draped in a sterile fashion. 2% lidocaine was used for local anesthesia. Using CT guidance, a 20-gauge coaxial biopsy device was advanced to the periphery of the lesion. A total of 6 core specimens were obtained. Specimens were microscopically reviewed by pathology in the CT suite and placed in formalin solution. BioSentry tract sealant system was deployed at the biopsy site, and the biopsy needle was removed. A sterile occlusive dressing was applied to the biopsy site. The patient tolerated the procedure well. An immediate chest xray was ordered, per protocol. A negative biopsy does not exclude malignancy. Further imaging or clinical followup based on patient condition and degree of clinical suspicion for malignancy. Suggest rebiopsy, if biopsy results do not match with clinical scenario. IMPRESSION: 1. CT directed core needle biopsy of right lower lobe lung nodule using CT image guidance with image documentation as described. Pathology results are pending. 2. Procedural Sedation protocol utilized with independent monitoring by the department nurse. Procedures Radiology Radiology CT Procedures: [id number] Biopsy Lung
--- NOTE | 2024-02-11 11:16 | RAD_ITS ---
STUDY: X-RAY CHEST REASON FOR EXAM: Female, 68 years old. 2 hour post lung biopsy -- 2 hours post lung biopsy TECHNIQUE: AP inspiration and expiration views. COMPARISON: Comparison is made with prior study done earlier today. FINDINGS: There is no evidence of pneumothorax on the delayed post right lung biopsy radiographs. RAD/Chest Insp/Exp 2 View IMPRESSION: No evidence of pneumothorax. Electronically Signed: Claude Nunez MD at 9:59 EDT ,
== END | disposition home or self-care (01) ==
PROVIDERS: PCP Family Medicine; Referring Provider Internal Medicine Hematology & Oncology; Visit Provider Internal Medicine Hematology & Oncology
DX: R91.1 Solitary pulmonary nodule (principal); R91.8 Other nonspecific abnormal finding of lung field
CPT/HCPCS: 32408; 36415; 71046; 77012; 85025; 85610; 85730; 88172; 88305; 88312; 88313; 88341; 88342; 99156; 99157; J7050; A4216; C2613

== ENCOUNTER → 2024-04-01 | Outpatient (CLI) | payer MEDICARE, SELFPAY ==
--- NOTE | 2024-04-01 14:02 | MRI_ITS ---
STUDY: MRI BRAIN WITH AND WITHOUT CONTRAST REASON FOR EXAM: Female, 68 years old. HEADACHES, NSCLC left upper lobe malignant mass. TECHNIQUE: Standardized multiplanar fat and water weighted pulse sequences were obtained. IV 17 cc Clariscan was administered for the contrast portion of the examination. COMPARISON: MRI of the brain dated July 24, 2023 FINDINGS: * Redemonstration of bilateral frontal parietal craniotomy defects and cortical plate screw constructs from prior surgical intervention * No focal infiltrative or parenchymal mass or enhancing lesions of the brain parenchyma. * Redemonstration of diffuse thickening and enhancement of the dura likely due to postsurgical thickening and postinflammatory change rather than dural carcinomatosis * No demonstrated meningeal enhancement * No extra-axial fluid collection or midline shift is present * Redemonstration of ovoid plaque-like configuration of the right signal abnormality in the periventricular white matter extending up to the centrum semiovale of the bilateral cerebral hemispheres which can be seen with multiple sclerosis. Atypical chronic ischemic change may also have this presentation as well as connective tissue disorders, lupus, and sarcoid. * No visualized skull lesions * Redemonstration of post infarct encephalomalacia and gliosis in the anterior aspect of the left temporal lobe There is moderate cerebral atrophy with widening of the extra-axial spaces and ventricular dilatation. There are multiple white matter hyperintensities, distributed throughout the deep white matter tracts of the cerebral hemispheres, consistent with moderate chronic white matter ischemic changes. There is no evidence for recent intracranial ischemia or other cause of cytotoxic edema on diffusion weighted imaging (DWI). Normal T2* images of the brain without demonstrated susceptibility artifact. There is no demonstrated hemosiderin stain. Normal bilateral basal ganglia. Normal thalami. There is no extra-axial fluid accumulation. Normal flow voids within the major intracranial circulation suggesting patency by spin echo criteria. Normal venous enhancement. There is no enhancing intra-axial or extra-axial abnormality. Normal sella turcica, pituitary gland, infundibular stalk, optic chiasm and hypothalamus. Normal tectal plate and pineal gland. Normal midbrain, bren and medulla. Normal cerebellum. Normal basal cisterns. Normal bilateral temporal bones. Normal bilateral internal auditory canals. No demonstrated orbital abnormality, within the constraints of a routine brain study. Normal visualized paranasal sinuses. Normal calvarium and skull base. Normal visualized soft tissue structures. Normal visualized upper cervical spine. MRI/Brain W/WO Contrast IMPRESSION: 1. Redemonstration of bilateral frontal parietal craniotomy defects and cortical plate screw constructs from prior surgical intervention 2. No focal infiltrative or parenchymal mass or enhancing lesions of the brain parenchyma. 3. Redemonstration of diffuse thickening and enhancement of the dura likely due to postsurgical thickening and postinflammatory change rather than dural carcinomatosis 4. No demonstrated meningeal enhancement 5. No extra-axial fluid collection or midline shift is present 6. Redemonstration of ovoid plaque-like configuration of the right signal abnormality in the periventricular white matter extending up to the centrum semiovale of the bilateral cerebral hemispheres which can be seen with multiple sclerosis. Atypical chronic ischemic change may also have this presentation as well as connective tissue disorders, lupus, and sarcoid. 7. No visualized skull lesions 8. Redemonstration of post infarct encephalomalacia and gliosis in the anterior aspect of the left temporal lobe Electronically Signed: Ramone Scott MD at 15:58 EDT ,
== END | disposition home or self-care (01) ==
LOC: MRI 13:55
PROVIDERS: PCP Family Medicine; Referring Provider Internal Medicine Hematology & Oncology; Visit Provider Internal Medicine Hematology & Oncology
DX: R51.9 Headache, unspecified (principal); C34.12 Malignant neoplasm of upper lobe, left bronchus or lung
CPT/HCPCS: 70553; A9575

== ENCOUNTER 2024-04-23 13:15 | Outpatient (CLI) | payer MEDICARE, SELFPAY ==
--- NOTE | 2024-04-23 13:18 | BD_ITS ---
STUDY: DUAL ENERGY X-RAY ABSORPTIOMETRY / DXA REASON FOR EXAM: Female, 68 years old. 733.90OsteopeniaBONE DENSITY REASON FOR EXAM TECHNIQUE: Bone Mineral Density (BMD) measurements of lumbar spine and bilateral hips were obtained. COMPARISON: Comparison is made with prior study dated February 13, 2021. FINDINGS: Lumbar Spine (L1-L4): g/cm2 (1.038) / T-score (0.2) / Z-score (2.2) Findings are suggestive of normal bone density with a low fracture risk. Left Femur Total: g/cm2 (0.847) / T-score (-0.8) / Z-score (0.7) Left Femoral Neck: g/cm2 (0.641) / T-score (-1.9) / Z-score (-0.1) Right Femur Total: g/cm2 (0.866) / T-score (-0.6) / Z-score (0.8) Right Femoral Neck: g/cm2 (0.633) / T-score (-1.9) / Z-score (-0.2) The T-Scores on the most recent prior examination were: Lumbar Spine (L1-L4): There has been worsening of bone density since the previous examination. Left Femur Total: which represents a worsening of 10.5%. Right Femur Total: which represents a worsening of 6.8%. BD/Dexa Bone Density Study IMPRESSION: The patient is considered osteopenic as outlined below according to World [employer] Organization (WHO) criteria with a moderate fracture risk. There has been worsening of bone density since the previous examination. Reference Information: The T-score is the number of standard deviations above or below the standard which is normal for young adults at their peak bone mineral density. The World Health Organization (WHO) interprets the T-scores as follows: Above -1 Normal bone density Between -1 and -2.5 Osteopenia Equal to / or below -2.5 Osteoporosis As a practical clinical guideline, osteopenia may be graded as follows: Mild -1 through -1.5 Moderate -1.6 through -2.0 Severe -2.1 through -2.4 The Z-score is the number of standard deviations above or below age-matched controls. A Z-score of less than -1.5 would be considered abnormal. References: 1. NIH Osteoporosis and Related Bone Diseases www osteo.org 2. International Society for Clinical Densitometry www iscd.org 3. National Osteoporosis Foundation www nof.org Electronically Signed: Claude Nunez MD at 13:06 EDT ,
--- NOTE | 2024-04-23 13:18 | BI_ITS ---
MAMMOGRAPHY - BILATERAL SCREENING REASON FOR EXAM: Female, 68 years old. Routine annual screening examination. PERTINENT HISTORY: Non-contributory. TECHNIQUE: Digital bilateral breast irene (3D mammographic acquisition) in the CC and MLO projections. 2-D mediolateral oblique (MLO) and craniocaudad (CC) views of both breasts were obtained. CAD: Full Field Digital Mammography with Computer Added Detection was performed. COMPARISON: Comparison is made with prior study dated March 11, 2023 and March 06, 2022. FINDINGS: Breast Composition: There are scattered areas of fibroglandular density. There are no dominant masses or suspicious calcifications. Stable small benign-appearing bilateral axillary lymph nodes. No other significant abnormalities are identified. There has been no significant change since the prior study. BI/SCRN MAMM (CAD)W/IRENE BILAT IMPRESSION: Stable bilateral screening mammogram. Yearly follow-up mammogram recommended. (A) ASSESSMENT CATEGORY: BIRADS Category 2: Benign. A letter regarding these results will be sent to the patient by the facility within 30 days. Approximately 10% of breast cancers are not detected by mammography. A normal mammogram should not delay biopsy of a clinically suspicious abnormality. [id number] Electronically Signed: Claude Nunez MD at 14:10 EDT ,
== END 2024-04-23 23:59 | disposition home or self-care (01) ==
LOC: OPBD 13:15
PROVIDERS: PCP Family Medicine; Referring Provider Family Medicine; Visit Provider Family Medicine
DX: Z12.31 Encounter for screening mammogram for malignant neoplasm of breast (principal); M85.89 Other specified disorders of bone density and structure, multiple sites
CPT/HCPCS: 77063; 77067; 77080

== ENCOUNTER → 2024-05-20 | Outpatient (CLI) | payer MEDICARE, SELFPAY ==
[2024-05-20 14:57] LABS: Absolute Lymphocyte Count 0.52 X10^3/uL (0.83-4.51); Absolute Neutrophil Count 0.6 X10^3/uL (2.0-7.7); Basophil# 0.01 X10^3/uL; Basophil% 0.6 % (0-1); Eosinophil# 0.02 X10^3/uL; Eosinophils% 1.2 % (0-5); Hematocrit 32.8 % (37-47); Hemoglobin 10.2 g/dL (12.0-15.0); Lymphocyte # 0.52 X10^3/ul (0.83-4.51); Lymphocyte % 31.9 % (19-41); Mean Corp Hgb Conc 31.1 g/dL (32-36); Mean Corpuscular Hgb 29.3 pg (27.0-32.0); Mean Corpuscular Volume 94.3 fL (81-99); Mean Platelet Vol. 9.1 fl (6.2-12.0); Monocyte# 0.47 X10^3/uL; Monocyte% 28.8 % (0-10); NRBC Flagged by Analyzer 0 % (0-5); Neutrophil # 0.59 X10^3/uL (2.7-7.7); Neutrophil % 36.3 % (47-70); POSITIVE DIFFERENTIAL YES; Platelet Count 199 K/mm3 (150-450); RBC Distribution Width CV 17.8 % (11.6-14.6); RBC Distribution Width SD 60.5 fl (35.1-43.9); Red Blood Count 3.48 M/mm3 (4.2-5.4); White Blood Count 1.6 K/mm3 (4.4-11.0)
[2024-05-20 15:02] LABS: Differential Indicated SCAN CRITERIA MET
[2024-05-20 15:26] LABS: ALB/GLOB Ratio 0.8 RATIO (0.9-2.4); AST(SGOT) 30 U/L (15-37); Alanine Aminotransfer ALT/SGPT 29 U/L (13-56); Albumin, Serum 3.1 g/dL (3.2-5.0); Alkaline Phosphatase 87 U/L (45-117); Anion Gap 10 (5-15); BUN 8 mg/dL (7-18); BUN/Creat Ratio 10.1 RATIO (10-20); Calcium,Total 8.8 mg/dL (8.5-10.1); Chloride 104 mmol/L (98-107); Cholesterol 87 mg/dL (200); Creatinine, Serum 0.79 mg/dL (0.55-1.02); EST Glomerular Filtration Rate 77 mL/min (>60); Est Glom Filt Rate - Afr Amer 93 mL/min (>60); Globulin 3.9 g/dL (2.2-4.2); Glucose 205 mg/dL (74-106); High Density Lipoprotein 43 mg/dL; Potassium 3.6 mmol/L (3.5-5.1); Sodium Level 138 mmol/L (136-145); Triglycerides 147 mg/dL; Very Low Density Lipoprotein 29 mg/dL (5-40)
[2024-05-20 15:36] LABS: Differential Comment SCANNED
[2024-05-20 15:54] LABS: Hemoglobin A1c 7.9 % (3.8-5.6)
[2024-05-24 11:08] LABS: Vitamin D 1,25-Dihydroxy 84.5 pg/mL (24.8-81.5)
[2024-05-24 13:53] LABS: Pathologist Review Reviewed
== END | disposition home or self-care (01) ==
LOC: MFPLAB 11:36
PROVIDERS: PCP Family Medicine; Referring Provider Family Medicine; Visit Provider Family Medicine
DX: E55.9 Vitamin D deficiency, unspecified (principal); E11.8 Type 2 diabetes mellitus with unspecified complications
CPT/HCPCS: 36415; 80053; 80061; 82652; 83036; 85025

== ENCOUNTER 2024-05-26 05:59 | Day surgery (SDC) | payer MEDICARE, SELFPAY ==
[2024-05-26] VITALS (8 sets, daily range): BP systolic 85–131; BP diastolic 5–68; PULSE 64–70; RESP 16–18; TEMP 36.1–36.9; O2SAT 90–96; BMI 32.6
--- NOTE | 2024-05-26 07:01 | PCM.PRE.AN2 ---
ASA Classification* ASA Classification ASA Classification: 3 Assessment & Plan Anesthesia* Anesthesia Assessment Anesthesia Assessment: Discussed sedation and/or anesthesia options, risks, benefits, and alternatives with patient/parents/legal guardian/POA. Questions invited. The patient/parents/legal guardian/POA seems to understand and agrees to proceed with anesthesia plan. Reviewed the physical assessment, medical history, allergy history and patient home medications list prior to surgery/procedure/anesthetic and documented any changes. Performed airway and anesthesia risk assessments. Anesthesia Type Anesthesia Type: MAC History Source History Obtained from:: Patient and Chart Anesthesia Focused Assessment* Temperature: 98.5 F Pulse Rate: 64 Blood Pressure: 131/68 Respiratory Rate: 16 Pulse Ox: 95 Oxygen Delivery Method: Room Air Airway Assessment Mouth opens: >3 cm Mallampati Score: I Teeth Condition: Dentures (Upper full dentures.) and Missing (Edentulous on the bottom.) Neck Range of motion (ROM): Full ROM Focused Labs Anesthesia Preop lab: CBC WBC 1.6 K/mm3 (4.4-11.0) L 05/20/24 11:39 RBC 3.48 M/mm3 (4.2-5.4) L 05/20/24 11:39 Hgb 10.2 g/dL (12.0-15.0) L 05/20/24 11:39 Hct 32.8 % (37-47) L 05/20/24 11:39 Plt Count 199 K/mm3 (150-450) 05/20/24 11:39 CHEMISTRY Potassium 3.6 mmol/L (3.5-5.1) 05/20/24 11:39 Sodium 138 mmol/L (136-145) 05/20/24 11:39 Magnesium 1.7 mg/dL (1.6-2.6) 04/21/24 12:55 Phosphorus 3.0 mg/dL (2.5-4.9) 04/21/24 12:55 BUN 8 mg/dL (7-18) 05/20/24 11:39 Creatinine 0.79 mg/dL (0.55-1.02) 05/20/24 11:39 Glucose 205 mg/dL (74-106) H 05/20/24 11:39 POC Glucose 125 mg/dL (74-106) H 07/22/23 11:16 TSH 1.83 uIU/mL (0.358-3.74) 01/08/21 08:43 COAG PT 13.6 SECONDS (11.7-14.9) 02/11/24 07:51 Pre-Assessment Diagnosis/Proposed Procedure Planned Operative Procedure(s): Colonoscopy Anesthesia History Anesthesia History - hospital education coordinator: Anesthesia History - hospital education coordinator Hx Hospitalization Yes: COVID - 07/01/2023 10/06/23 15:25 Any Problems With Anesthesia No 10/06/23 15:25 Cholinesterase deficiency No 10/06/23 15:25 You/Your Family Experience No 10/06/23 15:25 fever (hyperthermia) with Relationship Recent Exposure to Contagious No 05/26/24 06:32 Disease Does patient have nerve No 10/06/23 15:25 stimulator Patient instructed to have device shut off --Does patient have Pacemaker No 05/26/24 06:32 or ICD? When Was Last Pacemaker Check QUESTION #4 FULL TEXT: You/Your Family Experience fever (hyperthermia) with Anesthesia Last Oral Intake Last Oral intake: Last Oral Intake NPO since 22:00 05/26/24 06:32 Meds taken in AM with sips of No 05/26/24 06:32 water? Meds patient instructed to take am of surgery PONV PONV - hospital education coordinator: PONV - hospital education coordinator Female HX of Motion Sickness HX of N/V After Surgery Non-Smoker Duration of Surgery greater than 60 minutes Number of Risk Factors PONV Score Height & Weight Height & Weight: Anesthesia: Height & Weight Height 5 ft 2 in 05/26/24 06:32 Weight: 81 kg 05/26/24 06:32 Body Mass Index (BMI) 32.6 05/26/24 06:32 Respiratory Assessment Respiratory Assessment - hospital education coordinator: Respiratory Tract Infection Hx - hospital education coordinator Hx Respiratory Tract Infection Yes: COVID 10/06/23 15:25 STOP Sleep Apnea STOP Sleep Apnea - hospital education coordinator: STOP Sleep Apnea - hospital education coordinator Hx Hypertension No 05/19/24 13:59 Hx Sleep Apnea No 10/06/23 15:25 CPAP BIPAP Do you snore loudly (louder than talking or can be heard Do you often feel tired/ fatigued/ sleepy during daytime? Has anyone observed you stop breathing during sleep? STOP Results QUESTION #5 FULL TEXT : Do you snore loudly (louder than talking or can be heard through closed doors)? Tobacco Use History Tobacco Use History - hospital education coordinator: Tobacco Use History - hospital education coordinator Tobacco Use Smoking Status Former smoker 02/11/24 08:16 Hx Tobacco Use Yes 10/06/23 15:25 Years Smoking Packs Smoked per Day Smoking Cessation Date was within the last 15 years Hx Smoking Cessation Date 04/18/23 10/06/23 15:25 Hx Smoking Cessation No 10/06/23 15:25 Counseling Hematologic Medial History Hematologic Hx - hospital education coordinator: Hematologic Medical Hx - cone examiner Hx of Blood Transfusion Hx of Transfusion in last 3 Months Date of Last Transfusion (if within last 3 months) Ever experience any problems with transfusion(s)? Specify any problems Hx of Preganancy in last 3 Months Nurse Filling Out Transfusion & Questions: Date: Time: Patient unable to answer at this time (ie. confused, unrespo /Reproduction History /Reproductive History - hospital education coordinator: /Reproductive Hx- hospital education coordinator Hx Now Gestational Age (in weeks): EDC: Hx Hx Para Hx Section SAB No 10/06/23 15:25 PFSH Medical History (Updated 05/19/24 @ 13:25 by Jesika Noyola) B12 deficiency anemia Constipation Encounter for chemotherapy management Encounter for education Arthritis Low iron High cholesterol Injury of head and neck GERD (gastroesophageal reflux disease) Former smoker History of Holter monitoring History of heart attack Cancer of upper lobe of left lung Urinary incontinence Subdural hematoma Subdural hemorrhage Abnormal gastrointestinal PET scan Wears glasses Wears dentures Cancer Marijuana use Bladder disease Anemia Back pain Dietary restriction Smoker Hoarseness Leg cramps History of edema History of echocardiogram History of stress test Cardiology follow-up encounter Adenomatous polyps Diverticulosis Gastritis Iron deficiency anemia due to chronic blood loss Lung mass Rheumatoid arthritis Black tarry stools Fatigue Iron deficiency anemia Claudication Obesity Atherosclerosis of coronary artery of [place] heart without angina pectoris Essential (primary) hypertension Peripheral vascular occlusive disease Type 2 diabetes mellitus Nicotine dependence Rectal bleeding Hyperlipidemia Anxiety Home Medications ?Medication ?Instructions ?Recorded ?Last Taken ?Type oxybutynin chloride 15 mg 15 mg PO DAILY bladder 10/01/21 07/21/23 History tablet,extended release 24 hr acetaminophen 500 mg tablet 1,000 mg PO Q6H PRN Pain 04/05/22 07/21/23 History metformin 1,000 mg tablet 1,000 mg PO BID dm 10/01/22 07/21/23 History sennosides 8.6 mg tablet (senna) 8.6 mg PO DAILY PRN constipation 01/29/23 Unknown History bupropion HCl 150 mg tablet,12 hr 150 mg PO Q12H 06/11/23 07/22/23 History sustained-release aspirin 81 mg tablet,delayed 81 mg PO BREAKFAST #90 tabs 07/14/23 07/17/23 Rx release atorvastatin 40 mg tablet 40 mg PO QHS #90 tabs 07/14/23 07/21/23 Rx clopidogrel 75 mg tablet 75 mg PO DAILY #90 tabs 07/14/23 05/21/24 Rx metoprolol tartrate 25 mg tablet 12.5 mg (1/2 x 25 mg) PO BID #90 07/14/23 05/25/24 Rx tabs lidocaine-prilocaine 2.5 %-2.5 % 1 applic topical ONCE PRN port 07/17/23 Unknown Rx topical cream access 30 days #30 grams ondansetron 8 mg disintegrating 8 mg PO Q8H PRN nausea and 07/17/23 Unknown Rx tablet vomiting #30 tabs docusate sodium 100 mg capsule 100 mg PO BID PRN constipation 08/12/23 Unknown History (Colace) cilostazol 100 mg tablet 100 mg PO BID 10/06/23 Unknown History Disability Placard #1 ea 10/14/23 Unknown Rx dexamethasone 4 mg tablet 4 mg PO BID #30 tabs 03/04/24 Unknown Rx folic acid 1 mg tablet 1 mg PO DAILY #90 tabs 03/04/24 Unknown Rx Allergy/AdvReac Type Severity Reaction Status Date / Time oxycodone (From Percocet) Allergy Intermediate Itching Verified 05/26/24 06:30 Family History Sister Diabetes Breast cancer Brother Cancer throat Hypertension Surgical History History of cardiac catheterization S/P craniotomy S/P craniotomy Hx of heart artery stent History of esophagogastroduodenoscopy (EGD) Hx of colonoscopy History of angioplasty of peripheral vessel History of left heart catheterization (10/09/15) History of coronary artery stent placement (10/10/15) History of hysterectomy History of cholecystectomy Social History household members: none and other details: She has 2 sons who live locally and can help her and also has 2 sisters housing: apartment number of children: 2 current occupational status: employed current occupation: [employer] at the [email or web address] and she works 4 days a week Smoking Status: Former smoker Tobacco: How many years used: 50 how long ago did patient quit [id number]; quit in March 2023 second hand exposure: Yes alcohol intake: current details: Tells me that she has not had a drink since the craniotomy in October 2021 substance use type: other details: Has used marijuana in the past but denies current use. mary beth/anabaptist: Sikhism seatbelt use: always do you feel safe at home: Yes Review of Systems (Anesthesia) ROS Narrative System reviewed and no additional complaints, except as documented.
--- NOTE | 2024-05-26 07:05 | HP.PCM_ITS ---
HPI - General General Date of Service: 05/26/24 HPI Narrative KAELYN DRUMMOND, is a 68 F who presents for colonoscopy due to constipation. Patient states her constipation is much better after getting cleaned out and then taking senna and Colace daily. Patient was able to come off the Plavix. office visit 04/22/24 HPI HPI: 68-year-old female presents due to constipation for colonoscopy. Patient states she has tried taking senna and milk of magnesia. Patient states that she has not had a bowel movement once for 17 days. Currently she goes about every 3 to 4 days takes this at about every other day and will double up the day before did not have any bowel movements. Patient states she does strain and will notice some bright red blood per rectum with straining she does have known hemorrhoids. Patient is currently on chemotherapy every 3 weeks. Next session is May 12 and then on June 02. Patient is on Plavix but is able to come off. Patient last colonoscopy was in September 2020 which had 5 less than 5 mm polyps in the rectum and descending colon removed. Patient did have a PET scan 02/20/2021 which showed some enhancement in the rectum. Patient underwent flexible sigmoidoscopy 05/2021 which did not show anything concerning only a couple small polyps. [facility] Medical History (Updated 05/19/24 @ 13:25 by Jesika Noyola) B12 deficiency anemia Constipation Encounter for chemotherapy management Encounter for education Arthritis Low iron High cholesterol Injury of head and neck GERD (gastroesophageal reflux disease) Former smoker History of Holter monitoring History of heart attack Cancer of upper lobe of left lung Urinary incontinence Subdural hematoma Subdural hemorrhage Abnormal gastrointestinal PET scan Wears glasses Wears dentures Cancer Marijuana use Bladder disease Anemia Back pain Dietary restriction Smoker Hoarseness Leg cramps History of edema History of echocardiogram History of stress test Cardiology follow-up encounter Adenomatous polyps Diverticulosis Gastritis Iron deficiency anemia due to chronic blood loss Lung mass Rheumatoid arthritis Black tarry stools Fatigue Iron deficiency anemia Claudication Obesity Atherosclerosis of coronary artery of [place] heart without angina pectoris Essential (primary) hypertension Peripheral vascular occlusive disease Type 2 diabetes mellitus Nicotine dependence Rectal bleeding Hyperlipidemia Anxiety Home Medications ?Medication ?Instructions ?Recorded ?Last Taken ?Type oxybutynin chloride 15 mg 15 mg PO DAILY bladder 10/01/21 07/21/23 History tablet,extended release 24 hr acetaminophen 500 mg tablet 1,000 mg PO Q6H PRN Pain 04/05/22 07/21/23 History metformin 1,000 mg tablet 1,000 mg PO BID dm 10/01/22 07/21/23 History sennosides 8.6 mg tablet (senna) 8.6 mg PO DAILY PRN constipation 01/29/23 Unknown History bupropion HCl 150 mg tablet,12 hr 150 mg PO Q12H 06/11/23 07/22/23 History sustained-release aspirin 81 mg tablet,delayed 81 mg PO BREAKFAST #90 tabs 07/14/23 07/17/23 Rx release atorvastatin 40 mg tablet 40 mg PO QHS #90 tabs 07/14/23 07/21/23 Rx clopidogrel 75 mg tablet 75 mg PO DAILY #90 tabs 07/14/23 05/21/24 Rx metoprolol tartrate 25 mg tablet 12.5 mg (1/2 x 25 mg) PO BID #90 07/14/23 05/25/24 Rx tabs lidocaine-prilocaine 2.5 %-2.5 % 1 applic topical ONCE PRN port 07/17/23 Unknown Rx topical cream access 30 days #30 grams ondansetron 8 mg disintegrating 8 mg PO Q8H PRN nausea and 07/17/23 Unknown Rx tablet vomiting #30 tabs docusate sodium 100 mg capsule 100 mg PO BID PRN constipation 08/12/23 Unknown History (Colace) cilostazol 100 mg tablet 100 mg PO BID 10/06/23 Unknown History Disability Placard #1 ea 10/14/23 Unknown Rx dexamethasone 4 mg tablet 4 mg PO BID #30 tabs 03/04/24 Unknown Rx folic acid 1 mg tablet 1 mg PO DAILY #90 tabs 03/04/24 Unknown Rx Allergy/AdvReac Type Severity Reaction Status Date / Time oxycodone (From Percocet) Allergy Intermediate Itching Verified 05/26/24 06:30 Family History Sister Diabetes Breast cancer Brother Cancer throat Hypertension Surgical History History of cardiac catheterization S/P craniotomy S/P craniotomy Hx of heart artery stent History of esophagogastroduodenoscopy (EGD) Hx of colonoscopy History of angioplasty of peripheral vessel History of left heart catheterization (10/09/15) History of coronary artery stent placement (10/10/15) History of hysterectomy History of cholecystectomy Social History household members: none and other details: She has 2 sons who live locally and can help her and also has 2 sisters housing: apartment number of children: 2 current occupational status: employed 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 mary beth/mosque: Adventist seatbelt use: always do you feel safe at home: Yes Past Medical/Surgical History Planned Operation S.O.S: Yes Previous Hospitalizations/Surgeries HX Hospitalizations: Yes (COVID - 07/01/2023) HX of Surgeries: galbladder, kidney stones removed, uterus removed. Craniotomy October; Any Problems With Anesthesia: No You/Your Family Experience Fever (Hyperthermia) With Anes: No Cholinesterase deficiency: No Cardiovascular Hx Chest Pain within Last 2 months: No Hx of Irregular Heartbeat and/or Afib: No Hx Heart Attack: No Hx Congestive Heart Failure: No Hx Rheumatic Fever: No Hx Hypertension: No Hx Internal Defibrillator: No Hx Pacemaker: No Hx Cardiac Catheterization: No ([facility] 2015) Hx Cardiac Surgery/Stents/Etc.: No Hx Stress Test: Yes ([facility] stress echo 08/2019) Hx Pain in Legs when Walking/Leg Cramps: Yes (had pvd r/t smoking) Respiratory Chronic Cough: No HX of Shortness of Breath: No Hoarseness: No Hx Chronic Obstructive Pulmonary Disease (COPD): No Hx Asthma: No Hx Emphysema: No Hx Sleep Apnea: No Hx Respiratory Tract Infection/Cold (presently): Yes (COVID) Do You Snore Loudly (louder than talking or can be heard): No (unknown) Do You Often Feel Tired/ Fatigued/ Sleepy [place] Daytime?: No (unknown) Has Anyone Observed You Stop Breathing During Sleep?: No (unknown) Result (for STOP score): Negative Hx Smoking: Yes Smoking Status: Former smoker Gastrointestinal Hx Gastrointestinal Disorders: No Hx Gastrointestinal Bleed: No Hx Ulcer: No Hx Hiatal Hernia: No Difficulty Chewing/Swallowing: No Special diet followed at home: No Hx Unplanned Weight Loss of 20#: No HX Unplanned Weight Gain of 20#: No Neurological Hx Seizures: No HX Syncope/Blackout Spells/Unconsciousness: No Hx Transient Ischemic Attacks (TIA): No Hx Multiple Sclerosis: No Hx Parkinson's Disease: No Hx Head/Neck Injury: No Hx Headaches: No Hx Back Injury/Pain: No Recent Onset of Speech Difficulty: No Restless Legs: No Does patient have nerve stimulator: No Blood Disorder Hx Leukemia: No Bleeding Tendencies: No Hx Deep Vein Thrombosis: No Hx High Cholesterol: Yes (on atorvastatin) Blood Transmitted Disease: No Hx Hepatitis: No Hx Cirrhosis: No Hx Anemia: No Hx Blood Disorders: No Reproduction Hx Hysterectomy: Yes Are You Post Menopause: Yes Genitourinary Hx Renal Disease: No Hx Dialysis: No Musculoskeletal Hx Arthritis: Yes Hx Rheumatoid Arthritis: No Hx Gout: No Recent Onset of an Orthopedic Problem: No Endocrine Hx Diabetes: Yes Insulin: No Thyroid Disease: No Hx Steroid Therapy: No Psycho/Social Hx Substance Use: No Hx Alcohol Use: Yes (social) Hx Anxiety: No Hx Depression: No Mental Illness: No Hx Dementia: No Miscellaneous Hx Cancer: Yes (CERVICAL) Recent Exposure to Contagious Disease: No Hx of C-Diff: No Any Loose Teeth: No (dentures) Allergies oxycodone (From Percocet) Allergy (Intermediate, Verified 05/26/24 06:30) Itching From the PAT History Number of Risk Factors: 5 Vital Signs Vital Signs Vital Signs: 05/26/24 06:32 05/26/24 06:32 Temperature 98.5 F Temperature Source Temporal Pulse Rate 64 Respiratory Rate 16 Respiratory Pattern Normal Blood Pressure 131/68 H Blood Pressure Mean 89 Blood Pressure Source Monitor Blood Pressure Position Semi-Fowlers Blood Pressure Location Right Arm Pulse Ox 95 Oxygen Delivery Method Room Air Weight Weight: 178 lb 9.191 oz Body Mass Index (BMI) 32.6 Physical Exam Const alert, oriented x3 and no apparent distress HEENT normocephalic and head/scalp atraumatic Resp normal respiratory effort Cardio regular rate GI soft to palpation and non-tender; Negative for non-distended Palpation: Negative for guarding Extremity no clubbing, cyanosis or edema Skin no rashes or lesions noted Neuro CN's II-XII intact bilaterally Psych mental status grossly normal Assessment & Plan Assessment/Plan (1) Constipation: QUALIFIERS: Constipation type: unspecified constipation type Qualified Code(s): K59.00 - Constipation, unspecified Surgery Risks - Colonoscopy I discussed with the patient the risks of the procedure: Yes Risks Include but are not Limited To: Risks include but are not limited to: Bleeding, perforation requiring further surgery, inability to complete colonoscopy requiring barium enema.
[2024-05-26 07:09] LABS: Bedside Glucose 152 mg/dL (74-106)
--- NOTE | 2024-05-26 08:02 | OP.COLON_ITS ---
Patient Name: Anitra Powers Procedure Date: 05/26/2024 7:29 AM Date of : 1955 Age: 68 Procedure: Colonoscopy Indications: Constipation Providers: Qiana Grover MD Referring MD: Ludwin Christianson Medicines: Monitored Anesthesia Care Patient Profile: This is a 68 year old female. Last Colonoscopy: September 2020. Complications: No immediate complications. Procedure: Pre-Anesthesia Assessment: - Prior to the procedure, a History and Physical was performed, and patient medications and allergies were reviewed. The patient's tolerance of previous anesthesia was also reviewed. The risks and benefits of the procedure and the sedation options and risks were discussed with the patient. All questions were answered, and informed consent was obtained. Prior Anticoagulants: The patient has taken Plavix (clopidogrel), last dose was 5 days prior to procedure. ASA Grade Assessment: Per anesthesia. After reviewing the risks and benefits, the patient was deemed in satisfactory condition to undergo the procedure. After I obtained informed consent, the scope was passed under direct vision. Throughout the procedure, the patient's blood pressure, pulse, and oxygen saturations were monitored continuously. The Colonoscope was introduced through the anus and advanced to the cecum, identified by the appendiceal orifice, ileocecal valve and palpation. The colonoscopy was performed without difficulty. The patient tolerated the procedure well. The quality of the bowel preparation was good. Scope In: 7:37:43 AM Scope Withdrawal Time 0 hours 9 minutes 0 seconds Scope Out: 7:55:55 AM Total Procedure Duration Time 0 hours 18 minutes 12 seconds Findings: The perianal and digital rectal examinations were normal. A few small-mouthed diverticula were found in the sigmoid colon, descending colon and transverse colon. The exam was otherwise without abnormality on direct and retroflexion views. Impression: - Diverticulosis in the sigmoid colon, in the descending colon and in the transverse colon. - The examination was otherwise normal on direct and retroflexion views. - No specimens collected. Recommendation: - Discharge patient to home. - Resume previous diet. - Continue present medications. - Resume Plavix (clopidogrel) at prior dose today. - Repeat colonoscopy in 10 years for screening purposes. - depending on overall health at time of possible repeat Procedure Code(s): --- Professional --- 55414, Colonoscopy, flexible; diagnostic, including collection of specimen(s) by brushing or washing, when performed (separate procedure) Diagnosis Code(s): --- Professional --- K59.00, Constipation, unspecified K57.30, Diverticulosis of large intestine without perforation or abscess without bleeding CPT copyright 2021 [employer]. All rights reserved. The codes documented in this report are preliminary and upon cosmetologist review may be revised to meet current compliance requirements. MD Qiana Culver MD 05/26/2024 8:02:34 AM This report has been signed electronically. Number of Addenda: 0 Note Initiated On: 05/26/2024 7:29 AM
--- NOTE | 2024-05-26 08:03 | OP.CCLET_ITS ---
05/26/2024 Ludwin Christianson [address] [place] [address] Re : Colonoscopy procedure for Anitra Powers Dear Dr. Christianson This procedure was performed on Sunday, May 26, 2024. My impressions and recommendations are as follows: Impressions : - Diverticulosis in the sigmoid colon, in the descending colon and in the transverse colon. - The examination was otherwise normal on direct and retroflexion views. - No specimens collected. Recommendations : - Discharge patient to home. - Resume previous diet. - Continue present medications. - Resume Plavix (clopidogrel) at prior dose today. - Repeat colonoscopy in 10 years for screening purposes. - depending on overall health at time of possible repeat My findings are described in the full procedure note, which is enclosed. If I can be of further assistance, please feel free to contact me at Doctor phone number(s): , Work: . Sincerely, MD Qiana Culver MD 05/26/2024 8:02:34 AM This report has been signed electronically.
--- NOTE | 2024-05-26 08:03 | PCM.POST.ANE ---
Anesthesia: Postop Eval I Current Vital Signs Temperature: 97.5 F Pulse Rate: 70 Blood Pressure: 85/53 Respiratory Rate: 18 Pulse Ox: 93 Assessment Airway patent: Yes Spontaneous unlabored respirations: Yes nausea: No Vomiting: No Anesthesia Complication: No Fluid Hydration Crystalloid volume administer (ml): 10 Total IV fluid infused: 10 Progress Note Anesthesia document: Postop Eval 1 completed: Yes
--- NOTE | 2024-05-26 11:11 | POSTOPAN2_ITS ---
Anesthesia Postop Eval I Sum Postop Eval Completion status Anesthesia document: Postop Eval 1 completed: Yes Anesthesia Postop Eval I Summary Anesthesia Postop Eval I Summary: Anesthesia Postop Eval I: Assessment Summary Airway patent Yes 05/26/24 08:03 REDUCTION FURNACE OPERATOR.CSIR Spontaneous unlabored Yes 05/26/24 08:03 REDUCTION FURNACE OPERATOR.CSIR respirations Mental status nausea No 05/26/24 08:03 REDUCTION FURNACE OPERATOR.CSIR Vomiting No 05/26/24 08:03 REDUCTION FURNACE OPERATOR.CSIR Anesthesia Postop Eval I: Fluid Summary Crystalloid volume administer 10 05/26/24 08:03 REDUCTION FURNACE OPERATOR.CSIR (ml) Colloids volume administered ( ml) Blood Product volume administered (ml) Total IV fluid infused 10 05/26/24 08:03 REDUCTION FURNACE OPERATOR.CSIR Anesthesia Postop Eval I: Summary Notes Anesthesia Complication No 05/26/24 08:03 REDUCTION FURNACE OPERATOR.CSIR Anesthesia Complication Comment: Post-operative progress note Anesthesia: Postop Eval II Evaluation Mental status: Awake Pain Level: 0 nausea: No Vomiting: No
--- NOTE | 2024-05-26 11:11 | PCM.POSTANE2 ---
Anesthesia Postop Eval I Sum Postop Eval Completion status Anesthesia document: Postop Eval 1 completed: Yes Anesthesia Postop Eval I Summary Anesthesia Postop Eval I Summary: Anesthesia Postop Eval I: Assessment Summary Airway patent Yes 05/26/24 08:03 WIRE MACHINE CUTTER.CSIR Spontaneous unlabored Yes 05/26/24 08:03 WIRE MACHINE CUTTER.CSIR respirations Mental status nausea No 05/26/24 08:03 WIRE MACHINE CUTTER.CSIR Vomiting No 05/26/24 08:03 WIRE MACHINE CUTTER.CSIR Anesthesia Postop Eval I: Fluid Summary Crystalloid volume administer 10 05/26/24 08:03 WIRE MACHINE CUTTER.CSIR (ml) Colloids volume administered ( ml) Blood Product volume administered (ml) Total IV fluid infused 10 05/26/24 08:03 WIRE MACHINE CUTTER.CSIR Anesthesia Postop Eval I: Summary Notes Anesthesia Complication No 05/26/24 08:03 WIRE MACHINE CUTTER.CSIR Anesthesia Complication Comment: Post-operative progress note Anesthesia: Postop Eval II Evaluation Mental status: Awake Pain Level: 0 nausea: No Vomiting: No
== END 2024-05-26 08:36 | disposition home or self-care (01) ==
LOC: EN 06:00 → AC 06:00
PROVIDERS: PCP Family Medicine; Referring Provider Family Medicine; Visit Provider Surgery
PROC: 0DJD8ZZ Inspection of Lower Intestinal Tract, Via Natural or Artificial Opening Endoscopic (ICD-10-PCS; CPT 45378; principal; 2024-05-26 07:25)
DX: K59.00 Constipation, unspecified (principal); E11.9 Type 2 diabetes mellitus without complications; K57.30 Diverticulosis of large intestine without perforation or abscess without bleeding; Z90.710 Acquired absence of both cervix and uterus; E78.00 Pure hypercholesterolemia, unspecified; Z87.891 Personal history of nicotine dependence; Z79.82 Long term (current) use of aspirin; Z79.84 Long term (current) use of oral hypoglycemic drugs; I10 Essential (primary) hypertension; I25.10 Atherosclerotic heart disease of native coronary artery without angina pectoris; I25.2 Old myocardial infarction; Z85.118 Personal history of other malignant neoplasm of bronchus and lung; Z92.21 Personal history of antineoplastic chemotherapy; F41.9 Anxiety disorder, unspecified; Z95.5 Presence of coronary angioplasty implant and graft; Z90.49 Acquired absence of other specified parts of digestive tract; Z79.899 Other long term (current) drug therapy
CPT/HCPCS: 45378; 82962; A4216; J2405

== ENCOUNTER → 2024-05-28 | Outpatient (CLI) | payer MEDICARE, SELFPAY ==
--- NOTE | 2024-05-28 13:49 | CT_ITS ---
STUDY: CT CHEST T ABDOMEN WITH CONTRAST REASON FOR EXAM: Female, 68 years old. Left upper lobe malignant mass. Prior chemotherapy and radiation. No reported surgical history. met NSCLC; assess response to treatment Smoker one pack per day x53 years intermittently. RADIATION DOSAGE (If Supplied By Facility): CTDIvol = ( 14.32 ) mGy, DLP = ( 1087.42 ) mGycm TECHNIQUE: Transaxial imaging was performed following intravenous administration of IV 75mL Isovue-370. Individualized dose optimization techniques were used for this CT. COMPARISON: No PET/CT exam dated December 02, 2023. CT of the chest dated December 18, 2023 FINDINGS: CHEST * Pre-existing small 4 mm nodule in the lateral subpleural region and middle one third aspect of the right upper lobe, demonstrated on the December 18, 2023 CT of the chest study * Interval development of numerous small to moderate-sized metastatic nodules scattered throughout the bilateral upper lobes consistent with progression of metastatic disease. See image 47/119 series 6 on the current exam * Newly developed small and moderate sized numerous metastatic nodules scattered throughout the bilateral lower lobes, left upper lobe, right middle lobe. The nodules are coalescing in the posterior aspect of the right lower lobe maximally measuring 3.59 cm in diameter. * Previously treated fibrotic left upper lobe hilar consolidative/malignant mass with bronchiectasis and cystic changes measures 7.95 x 2.65 cm in diameter which demonstrates worsening/progression from what was seen on the December 18, 2023 CT of the chest study. * Partially enhancing and necrotic lobular mass in the hilar region and superior aspect of the left upper lobe measuring 2.1 cm is a new finding and is compatible with malignant neoplasm * No mediastinal lymphadenopathy is present There are emphysematous changes of the lungs with emphysematous blebs. There is no demonstrated pleural abnormality. Normal heart and pericardium. There are calcifications of the coronary arteries. Normal mediastinum. Normal hilar regions. There is prominence of the pulmonary hilar arteries without peripheral pulmonary vascular congestion, suggesting pulmonary hypertension. There is atherosclerotic calcification of the aortic arch with tortuosity and elongation of the aortic arch and descending thoracic aorta. There are multi-level degenerative changes of the thoracic spine. There is no demonstrated abnormality of the visualized upper abdomen. ABDOMEN No visualized metastatic disease to the solid organs or peritoneum or omentum or retroperitoneum. Mild diffuse mesenteric edema with central abdominal vascular pedicle is consistent with chronic inflammation. No bowel dilatation or evidence of obstruction. No lytic or blastic lesions are seen in the osseous structures. Normal liver. Normal gallbladder and extrahepatic biliary system. Normal spleen. Normal pancreas. Normal bilateral adrenal glands. Normal right kidney. Normal left kidney. Normal visualized stomach. Normal small intestine. Normal colon. The appendix is visualized and appears normal. There is diffuse atherosclerotic calcification of the abdominal aorta, without a demonstrated aneurysm. Normal inferior vena cava. Normal retroperitoneum. Normal abdominal wall. There are diffuse degenerative changes of the visualized lumbar spine. CT/CT Chest AND Abd W/ Contrast IMPRESSION: 1. Significant progression and newly developed numerous metastatic nodules throughout both lungs Electronically Signed: Ramone Scott MD at 12:09 EDT Reading Location ID and State: [facility] / [place] , Service support ,
[2024-05-28] MEDS: 0.9% Saline Lock 10 ML Syringe IV (14:17)
== END | disposition home or self-care (01) ==
LOC: CT 13:46
PROVIDERS: PCP Family Medicine; Referring Provider Nurse Practitioner Family; Visit Provider Nurse Practitioner Family
DX: C34.12 Malignant neoplasm of upper lobe, left bronchus or lung (principal)
CPT/HCPCS: 71260; 74160; Q9967; A4216

== ENCOUNTER → 2024-06-24 | Outpatient (CLI) | payer MEDICARE, SELFPAY ==
[2024-06-24 12:30] LABS: Microalbumin,Random Urine 9.9 mg/L (NO RANGE EST.); Microalbumin:Creatinine Ratio 9.9 mg/g CRE (<30 mg/g CRE)
== END | disposition home or self-care (01) ==
LOC: MFPLAB 06-25 09:19
PROVIDERS: PCP Family Medicine; Visit Provider Family Medicine
DX: E11.8 Type 2 diabetes mellitus with unspecified complications (principal)
CPT/HCPCS: 82043; 82570

== ENCOUNTER → 2024-07-27 | Outpatient (CLI) | payer MEDICARE, SELFPAY ==
--- NOTE | 2024-07-27 10:17 | VDLE_ITS ---
Reason For Study: BLE Swelling RIGHT LEFT GSV is normal. GSV is normal. CFV is compressible, spontaneous, phasic, CFV is compressible, spontaneous, phasic, competent and demonstrates normal competent, and demonstrates normal augmentation. augmentation. FV is compressible, spontaneous, phasic, FV is compressible, spontaneous, phasic, competent and demonstrates normal competent and demonstrates normal augmentation. augmentation. POP V is compressible, spontaneous, phasic, POP V is compressible, spontaneous, phasic, competent and demonstrates normal competent and demonstrates normal augmentation. augmentation. T/P Trunk is compressible. T/P Trunk is compressible. PTV is compressible. PTV is compressible. RT PerV is compressible. LT PerV is compressible. Procedure This is a venous duplex using B-mode, color flow and spectral Doppler. Exam performed in department. The exam was diagnostic. A preliminary report was called and/or faxed to [facility] Oncology. VL/Venous Duplex US - Jose Extrem Interpretation Summary Deep veins of the lower extremities are bilaterally patent and compressible seg mentally. There is no evidence of deep vein thrombosis on either side. Valvular competence appears in tact within the proximal deep venous systems bilaterally. The great saphenous veins appear bila terally patent and compressible segmentally. Ordering Physician: Sabi Lynn Referring Physician: Ludwin Christianson Performed By: Toi Obregon, RVT
== END | disposition home or self-care (01) ==
PROVIDERS: PCP Family Medicine; Referring Provider Nurse Practitioner Family; Visit Provider Nurse Practitioner Family
DX: R22.43 Localized swelling, mass and lump, lower limb, bilateral (principal); Z91.89 Other specified personal risk factors, not elsewhere classified
CPT/HCPCS: 93970

== ENCOUNTER → 2024-08-26 | Outpatient (CLI) | payer MEDICARE, SELFPAY ==
[2024-08-26 12:21] LABS: Absolute Lymphocyte Count 0.57 X10^3/uL (0.83-4.51); Absolute Neutrophil Count 2.2 X10^3/uL (2.0-7.7); Basophil# 0.01 X10^3/uL; Basophil% 0.3 % (0-1); Eosinophil# 0.04 X10^3/uL; Eosinophils% 1.1 % (0-5); Hematocrit 28.3 % (37-47); Hemoglobin 8.8 g/dL (12.0-15.0); Lymphocyte # 0.57 X10^3/ul (0.83-4.51); Lymphocyte % 16.2 % (19-41); Mean Corp Hgb Conc 31.1 g/dL (32-36); Mean Corpuscular Hgb 29.8 pg (27.0-32.0); Mean Corpuscular Volume 95.9 fL (81-99); Mean Platelet Vol. 10.4 fl (6.2-12.0); Monocyte% 19.9 % (0-10); NRBC Flagged by Analyzer 0 % (0-5); Neutrophil # 2.15 X10^3/uL (2.7-7.7); Neutrophil % 61.1 % (47-70); POSITIVE COUNT YES; POSITIVE DIFFERENTIAL YES; POSITIVE MORPHOLOGY YES; Platelet Count 81 K/mm3 (150-450); RBC Distribution Width CV 21.1 % (11.6-14.6); RBC Distribution Width SD 70.5 fl (35.1-43.9); Red Blood Count 2.95 M/mm3 (4.2-5.4); White Blood Count 3.5 K/mm3 (4.4-11.0)
[2024-08-26 12:28] LABS: Differential Indicated SCAN CRITERIA MET
[2024-08-26 12:34] LABS: Vitamin D,25 Hydroxy 89.2 ng/mL
[2024-08-26 12:38] LABS: AST(SGOT) 29 U/L (15-37); Alanine Aminotransfer ALT/SGPT 46 U/L (13-56); Albumin, Serum 3.2 g/dL (3.2-5.0); Alkaline Phosphatase 68 U/L (45-117); Anion Gap 9 (5-15); BUN 12 mg/dL (7-18); Calcium,Total 8.7 mg/dL (8.5-10.1); Chloride 109 mmol/L (98-107); Cholesterol 89 mg/dL (200); Creatinine, Serum 0.75 mg/dL (0.55-1.02); EST Glomerular Filtration Rate 81 mL/min (>60); Est Glom Filt Rate - Afr Amer 98 mL/min (>60); Globulin 3.2 g/dL (2.2-4.2); Glucose 158 mg/dL (74-106); High Density Lipoprotein 55 mg/dL; Protein, Total 6.4 g/dL (6.4-8.2); Sodium Level 141 mmol/L (136-145); Triglycerides 89 mg/dL; Very Low Density Lipoprotein 18 mg/dL (5-40)
[2024-08-26 12:48] LABS: Anisocytosis 1+; Platelet Estimate MOD DEC (ADEQ)
[2024-08-26 14:32] LABS: Hemoglobin A1c 7.8 % (3.8-5.6)
== END | disposition home or self-care (01) ==
LOC: MFPLAB 10:34
PROVIDERS: PCP Family Medicine; Referring Provider Family Medicine; Visit Provider Family Medicine
DX: E11.8 Type 2 diabetes mellitus with unspecified complications (principal); E55.9 Vitamin D deficiency, unspecified
CPT/HCPCS: 36415; 80053; 80061; 82306; 83036; 85025

== ENCOUNTER → 2024-08-31 | Outpatient (CLI) | payer MEDICARE, SELFPAY ==
[2024-08-31 09:32] LABS: Mucous, Urine 0 SEEN /hpf (<or=2+); Red Blood Cells-Urine 0 SEEN /hpf (0-5)
[2024-08-31 10:07] LABS: Color, Urine Yellow (Yellow); Glucose, Dipstick Normal (Normal); Ketone-Dipstick Negative (Negative); Leukocyte Esterase-Dipstick 100 /ul (Negative); Nitrite-Dipstick Negative (Negative); Occult Blood-Urine 10 /ul (Negative); Protein-Dipstick Negative (Negative); Specific Gravity, Urine 1.015 (1.002-1.030); Urine Bilirubin Dipstick Negative (Negative); Urine Clarity Cloudy (Clear); Urine Urobilinogen 1 mg/dl (Normal)
[2024-08-31 10:12] LABS: Bacteria 4+ /hpf (None Seen); Squamous Epithelial Cells - UA 0-5 SEEN /hpf (5-10); White Blood Cells 25-50 SEEN /hpf (0-5)
[2024-08-31 10:56] LABS: Microalbumin,Random Urine 12.4 mg/L (NO RANGE EST.); Microalbumin:Creatinine Ratio 17.8 mg/g CRE (<30 mg/g CRE)
== END | disposition home or self-care (01) ==
LOC: MFPLAB 09:30 → LABSPEC 09:30
PROVIDERS: PCP Family Medicine; Referring Provider Family Medicine; Visit Provider Family Medicine
DX: E11.21 Type 2 diabetes mellitus with diabetic nephropathy (principal)
CPT/HCPCS: 81001; 82043; 82570

== ENCOUNTER → 2024-08-31 | Outpatient (CLI) | payer MEDICARE, SELFPAY ==
--- NOTE | 2024-08-31 14:10 | CT_ITS ---
STUDY: CT CHEST T ABDOMEN WITH CONTRAST REASON FOR EXAM: Female, 68 years old. F/U CANCER OF LEFT UPPER LOBE OF LUNG RADIATION DOSAGE (If Supplied By Facility): CTDIvol = ( 19.78 ) mGy, DLP = ( 1383.18 ) mGycm TECHNIQUE: Transaxial imaging was performed following intravenous administration of IV 100mL Isovue-300. Multiplanar coronal and sagittal images were reformatted. Individualized dose optimization techniques were used for this CT. COMPARISON: Comparison is made with prior study dated May 28, 2024. FINDINGS: CHEST A right-sided portacatheter is seen with the tip in the superior vena cava. Once again, there are multiple bilateral pulmonary nodular density in keeping with diffuse metastasis. These have increased both in size and number as compared to prior study. There is a 2.2 cm x 1.6 cm mass in the superior medial aspect of the left upper lobe abutting the mediastinum. This has increased in size. Persistent post radiation fibrosis in the left upper lobe extending to the left perihilar region. Small left pleural effusion. There are calcifications of the coronary arteries. There is prominence of the pulmonary hilar arteries without peripheral pulmonary vascular congestion, suggesting pulmonary hypertension. Normal aorta arch and descending thoracic aorta. There are multi-level degenerative changes of the thoracic spine. ABDOMEN Normal liver. The patient is status post cholecystectomy. Normal spleen. Normal pancreas. Normal bilateral adrenal glands. Normal right kidney. Normal left kidney. Normal visualized stomach. Normal small intestine. Normal colon. The appendix is visualized and appears normal. There is diffuse atherosclerotic calcification of the abdominal aorta and its major visceral branches, without a demonstrated aneurysm. Normal inferior vena cava. Normal retroperitoneum. Normal abdominal wall. There are diffuse degenerative changes of the visualized lumbar spine. CT/CT Chest AND Abd W/ Contrast IMPRESSION: There has been an increase in size and number of the previously seen bilateral pulmonary nodules in keeping with metastatic disease. Persistent post radiation fibrosis in the left upper lobe. Mild increased size of the nodular density in the medial superior aspect of the left upper lobe abutting the mediastinum. Electronically Signed: Claude Nunez MD at 9:43 EST ,
[2024-08-31] MEDS: 0.9 % NaCl (Sterile) Posiflush 10 mL IV (14:40)
[2024-08-31] MEDS: 0.9% Saline Lock 10 ML Syringe IV (14:50)
== END | disposition home or self-care (01) ==
PROVIDERS: PCP Family Medicine; Referring Provider Internal Medicine Hematology & Oncology; Visit Provider Internal Medicine Hematology & Oncology
DX: C34.12 Malignant neoplasm of upper lobe, left bronchus or lung (principal)
CPT/HCPCS: 71260; 74160; Q9967; A4216

== ENCOUNTER → 2024-09-20 | Outpatient (CLI) | payer MEDICARE, SELFPAY ==
--- NOTE | 2024-09-20 10:01 | ART_ITS ---
Reason For Study Reason For Study: PVD Procedure A bilateral lower extremity continuous wave Doppler with analog waveform analysis,segmental pressures,and ankle brachial indexes with exercise. Left Segmental Pressures Left brachial= 174mmHg. Left low thigh = 186mmHg. Left calf = 94mmHg. Left posterior tibial artery = 100mmHg. Left dorsalis pedis artery = 88mmHg. Left digit = 82 mmHg. The left posterior tibial artery waveforms are monophasic. The left dorsalis pedis waveforms are monophasic. Right Segmental Pressures Right brachial= 173mmHg. Right low thigh = 126mmHg. Right calf = 100mmHg. Right posterior tibial artery = 116mmHg. Right dorsalis pedis artery = 87mmHg. Right digit = 78 mmHg. The right posterior tibial artery waveforms are monophasic. The right dorsalis pedis waveforms are monophasic. Indices The right ankle brachial index by the posterior tibial artery is 0.67. The right ankle brachial index by the dorsalis pedis is 0.50. The right digital-brachial index is 0.45. The right post exercise ankle brachial index is 0.32. The left ankle brachial index by the posterior tibial artery is 0.57. The left ankle brachial index by the dorsalis pedis is 0.51. The left digital-brachial index is 0.47. The left post exercise ankle brachial index is 0.25. VL/Lower Ext Art Exam w/ Exercise Interpretation Summary The right resting ankle-brachial index appears moderately abnormal. The left re sting ankle-brachial index appears moderately abnormal. Left lower extremity with abnormal response to exercise an d post exercise JEANIE in the severe category. Right lower extremity with abnormal response to exercise and post exe rcise JEANIE in the severe category. Ordering Physician: Sharif Christianson Referring Physician: SHARIF CHRISTIANSON MD Performed By: Toi Obregon, ASHWINIT
--- NOTE | 2024-09-20 10:01 | CDU_ITS ---
Reason For Study Reason For Study: PVD Rt. Velocities/BP Lt. Velocities/BP Prox CCA 87.5/10.8 cm/sec. Prox CCA 76.6/17.9 cm/sec. Mid CCA 69.9/8.5 cm/sec. Mid CCA 53.5/14.2 cm/sec. Dist CCA 48.3/7.6 cm/sec. Dist CCA 51.1/9.3 cm/sec. Prox ICA 38.2/11.4 cm/sec. Prox ICA 92.8/25.3 cm/sec. Mid ICA 47.4/12.7 cm/sec. Mid ICA 73.5/25.8 cm/sec. Dist ICA 68.0/17.4 cm/sec. Dist ICA 81.8/20.4 cm/sec. Rt. ICA/CCA = 1.0. Lt. ICA/CCA = 1.7. Prox ECA 48.3/12.0 cm/sec. Prox ECA 94.2/8.6 cm/sec. Rt. Vert. 51.9/10.6 cm/sec. Lt. Vert. 75.6/22.8 cm/sec. Right Extracranial There is heterogeneous, irregular atherosclerotic plaque noted in the right common carotid artery. There is heterogeneous, irregular atherosclerotic plaque noted in the right internal carotid artery. There is heterogeneous, irregular atherosclerotic plaque noted in the right external carotid artery. Antegrade flow is noted in the right vertebral artery. There is heterogeneous, irregular atherosclerotic plaque noted in the right bulb. Left Extracranial There is intimal thickening but no significant atherosclerotic plaque noted in the left common carotid artery. There is heterogeneous, irregular atherosclerotic plaque noted in the left internal carotid artery. There is heterogeneous, irregular atherosclerotic plaque noted in the left external carotid artery. Antegrade flow is noted in the left vertebral artery. There is heterogeneous, irregular atherosclerotic plaque noted in the left bulb. Procedure Carotid Duplex [id number]. This is a Carotid Duplex examination using B-mode, color flow and specral Doppler. The exam was diagnostic. Exam performed in department. VL/Carotid Duplex Ultrasound Interpretation Summary Mild (<50%) stenosis right extracranial internal carotid. Mild (<50%) stenosis left extracranial internal carotid. Flow within the vertebral arteries is antegrade bilaterally. Ordering Physician: Ludwin Christianson Referring Physician: Ludwin Christianson Performed By: Toi Obregon RVT
== END | disposition home or self-care (01) ==
PROVIDERS: PCP Family Medicine; Referring Provider Family Medicine; Visit Provider Family Medicine
DX: I73.9 Peripheral vascular disease, unspecified (principal); I65.23 Occlusion and stenosis of bilateral carotid arteries
CPT/HCPCS: 93880; 93924

== ENCOUNTER → 2024-11-30 | Outpatient (CLI) | payer MEDICARE, SELFPAY ==
--- NOTE | 2024-11-30 07:38 | CT_ITS ---
PROCEDURE: CT CHEST AND ABD W/ CONTRAST 11/30/2024 REASON FOR EXAM: MNSCLC; ASSESS RESPONSE TO TREATMENT TECHNIQUE: CT chest and abdomen was performed with IV contrast. Multiplanar reformats were generated. One or more dose reduction techniques were used (e.g., Automated exposure control, adjustment of the mA and/or kV according to patient size, use of iterative reconstruction technique. PATIENT PREPARATION: Per protocol ORAL CONTRAST TYPE: None. CONTRAST: Isovue-300 VOLUME: 96mL RADIATION DOSE SUMMARY: CTDlvol: 15.2+ 17.24+ 24.68 mGy DLP: 1314.12 mGycm COMPARISON: None. FINDINGS: Moderate motion limitation through the mid to lower abdomen. Heart/pericardium: Top-normal heart size. Severe three-vessel coronary atherosclerosis and/or stents. Mild aortic annular calcification. Aorta: Overall mild/moderate atherosclerosis. Prominent atherosclerosis and mild/moderate focal stenosis at the origin of the brachiocephalic artery.. Pulmonary arteries: Enlarged, which may indicate pulmonary arterial hypertension.. Lymph nodes: Mildly prominent but subcentimeter mediastinal and RIGHT hilar nodes. Ill-defined soft tissue thickening extending from the RIGHT upper lobe suprahilar region as below the RIGHT hilum without discrete or measurable hilar node. Lungs/pleura: Dominant irregular masslike opacity in the subpleural/paramediastinal LEFT upper lobe difficult to measure, roughly 5.2 x 7.0 cm containing areas of air bronchograms, extending into the apex and suprahilar region as above. Trace surrounding ground-glass. This also abuts the superior aspect of the oblique fissure. Numerous additional bilateral pulmonary nodules throughout all lobes. Largest discrete nodule on the RIGHT is posterior subpleural in the lower lobe and measures 2.6 x 1.8 cm (image 77). Largest on the LEFT is also irregular in the LEFT lower lobe and measures 2.6 x 1.8 cm (image 59). Additional areas were nodules appear to potentially become confluent are present, most notably also within the RIGHT lower lobe on image 67). Airways: Unremarkable. Chest wall: Partially imaged RIGHT chest wall port/catheter with tip near the superior cavoatrial junction. Liver: En's lobe. Spleen: Unremarkable. Gallbladder: Gallbladder not identified; likely cholecystectomy, however there are no visible surgical clips. Top-normal caliber of the CBD at 7-8 mm, likely post cholecystectomy effect. Pancreas: Atrophic. Adrenals: Unremarkable. Kidneys: Punctate nonobstructing intrarenal calculus on the LEFT.. Visualized bowel: Mildly fluid and gas dilated small bowel loops up to 3.2 cm within the visualized upper abdomen. No definite transition point within the [id number]. Lymph nodes: Unremarkable. Vasculature: Advanced diffuse atherosclerosis. Likely at least [id number] stenoses at the origins of the celiac and SMA, not well evaluated. Likely severe stenosis along the LEFT common iliac artery proximally. Suspect RIGHT [id number]-[id number]-LEFT renal artery stenoses, not well evaluated. Peritoneum: Unremarkable. Body Wall: Unremarkable. Musculoskeletal: Multilevel spondylosis.. Old LEFT rib fracture. Trace lumbar levoscoliosis may be positional. CT/CT Chest AND Abd W/ Contrast IMPRESSION: 1. Findings within the upper abdomen which may reflect small bowel ileus howeve r early or mild obstruction cannot be excluded given the pelvis was not imaged. Correlate with bowel function and consider CT abdomen and pelvis as indicated. 2. 5.2 cm irregular masslike mostly solid opacity in the LEFT upper lobe extend ing into the apex and suprahilar region, presumably reflecting the site of patient's reported primary malignancy. Numer ous bilateral pulmonary nodules up to 2.6 cm suspicious for intrapulmonary metastasis. Recommend clinical/oncologic follow- up. Given trace surrounding ground-glass surrounding the dominant LEFT apical masslike opacity, correlate for clinical e vidence of postobstructive pneumonia. 3. Motion limitation through the abdomen, without definite evidence of intra-ab dominal metastatic disease. 4. Additional description as above. Reading Location: [id number]
[2024-11-30] MEDS: 0.9% Saline Lock 10 ML Syringe IV (08:09)
[2024-11-30 08:38] LABS: Absolute Lymphocyte Count 1.07 X10^3/uL (0.83-4.51); Basophil# 0.02 X10^3/uL; Basophil% 0.3 % (0-1); Eosinophils% 1.6 % (0-5); Hematocrit 30.7 % (37-47); Hemoglobin 9.7 g/dL (12.0-15.0); Lymphocyte # 1.07 X10^3/ul (0.83-4.51); Lymphocyte % 16.9 % (19-41); Mean Corp Hgb Conc 31.6 g/dL (32-36); Mean Corpuscular Hgb 26.7 pg (27.0-32.0); Mean Corpuscular Volume 84.6 fL (81-99); Mean Platelet Vol. 8.7 fl (6.2-12.0); Monocyte# 1.09 X10^3/uL; Monocyte% 17.2 % (0-10); NRBC Flagged by Analyzer 0 % (0-5); Neutrophil # 4.03 X10^3/uL (2.7-7.7); Neutrophil % 63.8 % (47-70); Platelet Count 273 K/mm3 (150-450); RBC Distribution Width CV 17.4 % (11.6-14.6); RBC Distribution Width SD 54.1 fl (35.1-43.9); Red Blood Count 3.63 M/mm3 (4.2-5.4); White Blood Count 6.3 K/mm3 (4.4-11.0)
[2024-11-30 09:45] LABS: ALB/GLOB Ratio 1.3 RATIO (0.9-2.4); AST(SGOT) 18 U/L (<=31); Alanine Aminotransfer ALT/SGPT 15 U/L (<=34); Albumin, Serum 3.4 g/dL (3.4-4.8); Alkaline Phosphatase 80 U/L (35-104); Anion Gap 12 (5-15); BUN 12 mg/dL (4-19); BUN/Creat Ratio 19.2 RATIO (10-20); Calcium,Total 9.3 mg/dL (7.6-11.0); Carbon Dioxide 21.2 mmol/L (21.0-32.0); Chloride 103 mmol/L (98-108); Creatinine, Serum 0.62 mg/dL (0.70-1.20); EST Glomerular Filtration Rate 96 (>60); Globulin 2.6 g/dL (2.2-4.2); Glucose 186 mg/dL (70-99); Magnesium 1.5 mg/dL (1.5-2.2); Sodium Level 136 mmol/L (133-145); Total Bilirubin 0.22 mg/dL (0.00-1.30)
[2024-11-30 10:24] LABS: Hemoglobin A1c 6.9 % (<=5.6)
[2024-11-30 10:34] LABS: Cholesterol 80 mg/dL (<=200); High Density Lipoprotein 38 mg/dL; Low Density Lipoprotein Calc. 25 mg/dL; Triglycerides 88 mg/dL; Very Low Density Lipoprotein 18 mg/dL (5-40); cholesterol:hdl ratio screen 2.12
== END | disposition home or self-care (01) ==
PROVIDERS: PCP Family Medicine; Referring Provider Nurse Practitioner Family; Visit Provider Nurse Practitioner Family
DX: C34.12 Malignant neoplasm of upper lobe, left bronchus or lung (principal); E11.59 Type 2 diabetes mellitus with other circulatory complications
CPT/HCPCS: 71260; 74160; 80053; 80061; 83036; 83735; 85025; Q9967

== ENCOUNTER → 2025-01-20 | Outpatient (CLI) | payer MEDICARE, SELFPAY ==
[2025-01-20 12:34] LABS: Absolute Neutrophil Count 4.7 X10^3/uL (2.0-7.7); Basophil# 0.04 X10^3/uL; Basophil% 0.6 % (0-1); Eosinophil# 0.09 X10^3/uL; Eosinophils% 1.3 % (0-5); Hematocrit 35.1 % (37-47); Hemoglobin 10.9 g/dL (12.0-15.0); Mean Corp Hgb Conc 31.1 g/dL (32-36); Mean Corpuscular Hgb 25.7 pg (27.0-32.0); Mean Corpuscular Volume 82.8 fL (81-99); Monocyte# 0.79 X10^3/uL; Monocyte% 11.8 % (0-10); NRBC Flagged by Analyzer 0 % (0-5); Neutrophil # 4.72 X10^3/uL (2.7-7.7); Neutrophil % 70.9 % (47-70); Platelet Count 334 K/mm3 (150-450); RBC Distribution Width CV 18.6 % (11.6-14.6); RBC Distribution Width SD 54.9 fl (35.1-43.9); Red Blood Count 4.24 M/mm3 (4.2-5.4); White Blood Count 6.7 K/mm3 (4.4-11.0)
[2025-01-20 13:22] LABS: Hemoglobin A1c 7.6 % (<=5.6)
[2025-01-20 13:37] LABS: ALB/GLOB Ratio 1.3 RATIO (0.9-2.4); AST(SGOT) 16 U/L (<=31); Alanine Aminotransfer ALT/SGPT 9 U/L (<=34); Albumin, Serum 4.1 g/dL (3.4-4.8); Alkaline Phosphatase 82 U/L (35-104); Anion Gap 14 (5-15); BUN 11 mg/dL (4-19); BUN/Creat Ratio 13.6 RATIO (10-20); Calcium,Total 9.4 mg/dL (7.6-11.0); Carbon Dioxide 22.5 mmol/L (21.0-32.0); Chloride 101 mmol/L (98-108); Cholesterol 129 mg/dL (<=200); EST Glomerular Filtration Rate 79 (>60); Globulin 3.2 g/dL (2.2-4.2); Glucose 162 mg/dL (70-99); High Density Lipoprotein 54 mg/dL; Low Density Lipoprotein Calc. 48 mg/dL; Potassium 3.9 mmol/L (3.3-5.1); Protein, Total 7.3 g/dL (5.9-8.4); Sodium Level 138 mmol/L (133-145); Total Bilirubin 0.32 mg/dL (0.00-1.30); Triglycerides 137 mg/dL; Very Low Density Lipoprotein 27 mg/dL (5-40)
== END | disposition home or self-care (01) ==
LOC: MFPLAB 10:12
PROVIDERS: PCP Family Medicine; Referring Provider Family Medicine; Visit Provider Family Medicine
DX: E11.8 Type 2 diabetes mellitus with unspecified complications (principal); E03.9 Hypothyroidism, unspecified
CPT/HCPCS: 36415; 80053; 80061; 83036; 84439; 85025

== ENCOUNTER → 2025-03-08 | Outpatient (CLI) | payer MEDICARE, SELFPAY ==
--- NOTE | 2025-03-08 11:15 | RAD_ITS ---
PROCEDURE: LUMBAR SPINE 2 OR 3 VIEWS 03/08/2025 REASON FOR EXAM: CLAUDICATION, LOW BACK PAIN TECHNIQUE: LUMBAR SPINE 2 OR 3 VIEWS FINDINGS: No evidence of acute fracture or dislocation. Moderate degenerative changes of the visualized spine. Grade 1 retrolisthesis of L2 on L3. [id number] lower lumbar facet arthropathy. RAD/Lumbar Spine 2 or 3 Views IMPRESSION: Spondylosis. Spondylolisthesis. Reading Location: [id number]
== END | disposition home or self-care (01) ==
LOC: RAD 11:12
PROVIDERS: PCP Family Medicine; Referring Provider Physician Assistant; Visit Provider Physician Assistant
DX: M54.50 Low back pain, unspecified (principal); I73.9 Peripheral vascular disease, unspecified
CPT/HCPCS: 72100

== ENCOUNTER → 2025-03-28 | Outpatient (CLI) | payer MEDICARE, SELFPAY | END | disposition home or self-care (01) | LOC: CT 07:38 | PROVIDERS: PCP Family Medicine; Referring Provider Internal Medicine Hematology & Oncology; Visit Provider Internal Medicine Hematology & Oncology | DX: C78.01 Secondary malignant neoplasm of right lung (principal); C78.02 Secondary malignant neoplasm of left lung; C34.12 Malignant neoplasm of upper lobe, left bronchus or lung | CPT/HCPCS: 71260; 74160; Q9967; A4216 ==

== ENCOUNTER → 2025-04-05 | Outpatient (CLI) | payer MEDICARE, SELFPAY ==
--- NOTE | 2025-04-05 06:42 | CT_ITS ---
PROCEDURE: CTA ABD W/RUNOFF W/WO CONTRAST 04/05/2025 REASON FOR EXAM: SHORT DISTANCE CLAUDICATION TECHNIQUE: CTA ABD W/RUNOFF W/WO CONTRAST Multiplanar Sagittal and Coronal images were obtained. 3D and or MIPS post processing was performed CONTRAST: Isovue 370 VOLUME: 100 mL One or more dose reduction techniques were used (e.g., Automated exposure control, adjustment of the mA and/or kV according to patient size, use of iterative reconstruction technique). RADIATION DOSE SUMMARY: CTDlvol: 11.3 mGy DLP: 1470.24 mGycm COMPARISON: None FINDINGS: Aorta: Moderate mixed calcified and soft plaque. No abdominal aortic aneurysm. Iliac Arteries: Marked degree of atherosclerotic calcific plaque formation of both common iliac arteries worse on the left side. Celiac: Atherosclerotic plaque formation at its origin. SMA: Atherosclerotic plaque formation at its origin. GABRIELLE : Not visualized. Right Renal: Atherosclerotic plaque formation at its origin. Left Renal: Atherosclerotic plaque formation at its origin. Lower Extremity Runoff (Bilateral): Common Femoral Arteries: Atherosclerotic plaque formation the common femoral arteries bilaterally. Superficial Femoral Arteries: Short-segment occlusion of the proximal portion of the left superficial femoral artery. There is evidence of scattered atherosclerotic plaque throughout the course of both superficial femoral arteries worse on the left side. Profunda Femoris Arteries: Unremarkable Popliteal Arteries: The right popliteal artery is patent. The left popliteal artery is patent. Tibial and Peroneal Arteries: Patent bilaterally. Distal Runoff: Three-vessel runoff in both legs. Extravascular Findings: Coronary artery calcification. Mild bibasilar atelectasis. Diffuse fatty infiltration of the liver. Diffuse pancreatic atrophy. CT/CTA Abd w/Runoff W/WO Contrast IMPRESSION: Short-segment occlusion of the proximal portion of the left superficial femoral artery. Reconstitution with the evidence of three-vessel runoff in both lower extremiti es. Reading Location: [facility]
--- OUTSIDE RECORDS SUMMARY | 2025-04-05 07:01 | XMS RPT_ITS | CCD ---
Author Organization [facility] Care Team Providers Care Back Tender Cylinder Name Role Phone HarrietJesusita Garcia Unavailable Unavailable MD Ryan, [place] S Unavailable TIARA Smart, Arely Brown Unavailable UnavailSharif Pedraza Primary Care Provider Dr. Sharif Christianson Primary Care Provider Dr. Sharif Christianson Referring Provider Dr. Shannan Waldrop Attending Provider DENISE Wilkins Attending Provider Ryan, Eder S Unavailable Dr. Sharif Chrsitianson Primary Care Provider Dr. Sharif Christianson Referring Provider Dr. Shannan Waldrop Attending Provider DENISE Wilkins Attending Provider Sharif Christianson Primary Care Provider Ryna, Eder S Unavailable Dr. Sharif Christianson Primary Care Provider Dr. Sharif Christianson Referring Provider Dr. Shannan Waldrop Attending Provider Bhavya, Dr. Anahi Farah Admit Provider Bhavya, Dr. Anahi Farah Attending Provider Bhavya, Dr. Anahi Farah Other Provider Sharif Christianson [place] Primary Care Provider [phone] Eder Davis Unavailable LOAN RIVAS Referring Unavailable [facility] Primary Care Unavailabl e PERCY, BRYCE F Attending Unavailable KINGT, BRYCE F Referring Unavailable [facility] Primary Care Unavailabl e PERCY, BRYCE F Attending Unavailable KINGT, BRYCE F Referring [facility]available [facility] Primary Care Unavailabl e MANUELYAT, BRYCE F Referring Unavailable [facility] Primary Care Unavailabl e KACY GLEZ Referring Unavailable [facility] Primary Care Unavailabl e [facility] SHARIF EDROSCOE Referring Unavailabl e PERCY, BRYCE F Attending Unavailable [facility] Primary Care Unavailabl e MEGHAN SHARIF EDWARD Referring Unavailabl e PERCY, BRYCE F Attending Unavailable [facility] Primary Care Unavailabl e REUBEN PLASENCIA Consulting Unavailable KINGT, BRYCE F Admitting Unavailable [facility] Primary Care Unavailabl KYLEIGH Lee Attending Unavailable GISELA MONTOYA Consulting ELIO De Jesus Admitting Unavailable PERCY, BRYCE F Attending Unavailable [facility] Primary Care Unavailabl e SHARIF CHRISTIANSON [place] Referring Unavailabl e [facility] Primary Care Unavailabl e PERCY, BRYCE F Attending Unavailable [facility] [place] EDROSCOE Referring Unavailabl e [facility] Primary Care Unavailabl e MEGHAN SHARIF EDWARD Referring Unavailabl e PERCY, BRYCE F Attending Unavailable [facility] Primary Care Unavailabl e KACY GLEZ Referring Unavailable [facility] Primary Care Unavailabl e PERCY, BRYCE F Referring Unavailable [facility] Primary Care Unavailabl e PERCY, BRYCE F Attending Unavailable PERCY, BRYCE F Admitting Unavailable [facility] Primary Care Unavailabl e PERCY, BRYCE F Referring Unavailable YINA GARCIA Consulting Unavailable SHARIF CHRISTIANSON Referring Unavailabl e BRYCE GREER F Attending Unavailable SHARIF CHRISTIANSON Primary Care Unavailabl e BRYCE GREER F Attending Unavailable BRYCE GREER F Referring Unavailable MEGHAN, SHARIF REYES Primary Care Unavailabl e LEMUELDESTINYJyotsnaLOAN Referring Unavailable SHARIF CHRISTIANSON Primary Care Unavailnav e Dr. Sharif Christianson Primary Care Provider Dr. Sharif Christianson Referring Provider DENISE Wilkins Attending Provider Dr. Sharif Christianson Primary Care Provider Bhavya, Dr. Anahi Farah Admit Provider Bhavya, Dr. Anahi Farah Attending Provider Bhavya, Dr. Anahi Farah Other Provider Dr. Sharif Christianson Referring Provider Dr. Shannan Waldrop Attending Provider DENISE Wilkins Attending Provider Dr. Sharif Christianson Primary Care Provider Dr. Sharif Christianson Primary Care Provider Dr. Sharif Christianson Referring Provider Dr. Shannan Waldrop Attending Provider DENISE Wilkins Attending Provider LANEY Clayton Primary Care Provider Dr. Dave Rossi Attending Provider Dr. Sharif Christianson Primary Care Provider Dr. Sharif Christianson Referring Provider DENISE Wilkins Attending Provider LANEY [place] Primary Care Provider Dr. Dave Rossi Attending Provider Reji WALKER, PA Ivonne Brown Referring Provider Dr. Shannan Waldrop Attending Provider LANEY Clayton Primary Care Provider LANEY Clayton Referring Provider SELF, SELF Referring Unavailable GARZAPINKY E Attending Unavailable LANEY Clayton Primary Care Provider Dr. Williams Nye Emergency Provider Dr. Nic Caraballo Provider Dr. Nic Caraballo Other Provider Dr. Gwendolyn Petersen Attending Provider Dr. Gwendolyn Petersen Other Provider Alex, Dr. Avery Other Provider Alex, Dr. Avery Attending Provider LUCRECIA SUDISH Attending Unavailable PINKY WINTER Referring Unavailable SCHINNER, SHARIF E Primary Care Unavailable LUCRECIA, SUDISH Referring Unavailable SCHINNER, SHARIF E Primary Care Unavailable LANEY Clayton Primary Care Provider Dr. Williams Nye Emergency Provider [phone] Nic Caraballoit Provider Dr. Nic Caraballo Other Provider Dr. Gwendolyn Petersen Attending Provider Dr. Gwendolyn Petersen Other Provider Dr. Gena Johnson Other Provider Dr. Gena Johnson Attending Provider Dr. Gena Johnson Referring Provider LANEY Clayton Referring Provider Dr. Shannan Waldrop Attending Provider Dr. Brennen Roth Attending Provider [facility] [place] Attending Provider Dr. Sharif Christianson Primary Care Provider Dr. Brennen Roth Referring Provider Dr. Sharif Christianson Referring Provider Leah PRESS HAND, PRESS HAND-C Sabi Attending Provider Dr. Isreal Carvalho Attending Provider Dr. Isreal Carvalho Referring Provider Dr. Isreal Carvalho Other Provider Isabel, Dr. Lucero Attending Provider Reji WALKER, DENISE Brown Attending Provider Dr. Sharif Christianson Primary Care Provider Dr. Brennen Roth Attending Provider Dr. Brennen Roth Referring Provider Dr. Sharif Christianson Referring Provider Dr. Nic Hall Attending Provider Dr. Shannan Waldrop Attending Provider DENISE Wilkins Attending Provider Dr. Sharif Christianson Primary Care Provider Dr. Brennen Roth Attending Provider Dr. Brennen Roth Referring Provider Dr. Sharif Christianson Referring Provider Dr. Shannan Waldrop Attending Provider Dr. Sharif Christianson MD Primary Care Provider [phone] Dr. Sharif Christianson MD Referring Provider Leah PRESS HAND-C, Sabi Attending Provider Dr. Sharif Christianson MD Attending Provider Ivonne Wilkins Attending Provider Dr. Shannan Waldrop MD Attending Provider Benjie PALOMO, Dr. Campbell Referring Provider Xenia Solorzano Attending Provider Maggy PALOMO, Dr. Pinky Mercado Other Provider Leah PRESS HAND-C, Sabi Referring Provider Meghan PALOMO, Dr. Sharif Lovell Primary Care Provider Meghan PALOMO, Dr. Sharif Lovell Referring Provider Benjie PALOMO, Dr. Campbell Attending Provider Meghan PALOMO, Dr. Sharif Lovell Attending Provider Leah PRESS HAND-C, Sabi Attending Provider Benjie PALOMO, Dr. Campbell Referring Provider Maggy PALOMO, Dr. Pinky Mercado Other Provider Meghan PALOMO, Dr. Sharif Lovell Primary Care Provider Meghan PALOMO, Dr. Sharif Lovell Referring Provider Benjie PALOMO, Dr. Campbell Attending Provider Leah PRESS HAND-C, Sabi Attending Provider Meghan PALOMO, Dr. Sharif Lovell Attending Provider Benjie PALOMO, Dr. Cambpell Referring Provider Maggy PALOMO, Dr. Pinky Mercado Other Provider Meghan PALOMO, Dr. Sharif Lovell Primary Care Provider Meghan PALOMO, Dr. Sharif Lovell Referring Provider Benjie PALOMO, Dr. Campbell Attending Provider Benjie PALOMO, Dr. Campbell Referring Provider Maggy PALOMO, Dr. Pinky Mercado Other Provider Dr. Sharif Christianson MD Primary Care Provider Meghan PALOMO, Dr. Sharif Lovell Referring Provider Leah PRESS HAND-C, Sabi Attending Provider Meghan PALOMO, Dr. Sharif Lovell Primary Care Provider Meghan PALOMO, Dr. Sharif Lovell Referring Provider Xenia Solorzano Attending Provider Xenia Solorzano Referring Provider Dr. Nic Hall MD Attending Provider [phone] Benjie PALOMO, Dr. Campbell Referring Provider Dr. Pinky Winter MD, V Other Provider Meghan PALOMO, Dr. Sharif Lovell Primary Care Provider [phone] Meghan PALOMO, Dr. Sharif Lovell Referring Provider Leah PRESS HAND-C, Sabi Attending Provider Sharif Christianson Primary Care Unavailable Sharfi Christianson Referring Unavailable Leah PRESS HAND, Sabi Attending Unavailable Sharif Christianson Primary Care Unavailable Sharif Christianson Referring Unavailable Xenia Gilliland Attending Unavailable Sharif Christianson Primary Care Unavailable Sharif Christianson Referring Unavailable Nic Hall Attending Unavailable Sharif Christianson Primary Care Unavailable Ivonne Wilkins Attending Unavail able Sharif Christianson Referring Unavailable Sharif Christianson Referring Unavailable Sharif Christianson Primary Care Unavailable Shannan Waldrop Attending Unavailable Sharif Christianson Primary Care Unavailable Sharif Christianson Referring Unavailable Shannan Waldrop Attending Unavailable Sharif Christianson Primary Care Unavailable Leah PRESS HAND, Sabi Attending Unavailable Sharif Christianson Referring Unavailable Sharif Christianson Primary Care Unavailable Sharif Christianson Referring Unavailable Leah PRESS HAND, Sabi Attending Unavailable Sharif Christianson Primary Care Unavailable Leah PRESS HAND, Sabi Attending Unavailable Sharif Christianson Referring Unavailable Sharif Christianson Attending Unavailable Sharif Christianson Primary Care Unavailable Sharif Christianson Primary Care Unavailable Sharif Christianson Referring Unavailable Sharif Christianson Attending Unavailable Sharif Christianson Primary Care Unavailable Sharif Christianson Referring Unavailable Sharif Christianson Attending Unavailable Sharif Christianson Primary Care Unavailable Xenia Gilliland Attending Unavailable Xenia Gilliland Referring Unavailable Sharif Christianson Primary Care Unavailable Sharif Christianson Referring Unavailable Sharif Christianson Attending Unavailable Sharif Christianson Primary Care Unavailable Sharif Christianson Referring Unavailable Leah PRESS HAND, Sabi Attending Unavailable Sharif Christianson Primary Care Unavailable Sharif Christianson Referring Unavailable Shannan Waldrop Attending Unavailable Sharif Christianson Primary Care Unavailable Sharif Christianson Referring Unavailable Shannan Waldrop Attending Unavailable Sharif Christianson Referring Unavailable Sharif Christianson Primary Care Unavailable Qiana Grover Attending Unavailable Sharif Christianson Referring Unavailable Sharif Christianson Primary Care Unavailable Sharif Christianson Attending Unavailable Sharif Christianson Referring Unavailable Sharif Christianson Primary Care Unavailable Qiana Grover Attending Unavailable Sharif Christianson Referring Unavailable Sharif Christianson Primary Care Unavailable Leah PRESS HAND, Sabi Attending Unavailable Sharif Christianson Primary Care Unavailable Leah PRESS HAND, Sabi Referring Unavailable Leah PRESS HAND, Sabi Attending Unavailable Sharif Christianson Primary Care Unavailable Sharif Christianson Referring Unavailable Sharif Christianson Attending Unavailable Sharif Christianson Attending Unavailable Sharif Christianson Referring Unavailable Sharif Christianson Primary Care Unavailable Sharif Christianson Primary Care Unavailable Leah PRESS HAND, Sabi Attending Unavailable Leah PRESS HAND, Sabi Referring Unavailable Sharif Christianson Primary Care Unavailable Xenia Gilliland Attending Unavailable Xenia Gilliland Referring Unavailable Sharif Christianson Primary Care Unavailable Shannan Waldrop Referring Unavailable Shannan Waldrop Attending Unavailable Sharif Christianson Primary Care Unavailable Leah PRESS HAND, Sabi Referring Unavailable Leah PRESS HAND, Sabi Attending Unavailable Sharif Christianson Primary Care Unavailable Leah PRESS HAND, Sabi Attending Unavailable Sharif Christianson Referring Unavailable Sharif Christianson Primary Care Unavailable Shannan Waldrop Referring Unavailable Shannan Waldrop Attending Unavailable Sharif Christianson Primary Care Unavailable Sharif Christianson Referring Unavailable Leah PRESS HAND, Sabi Attending Unavailable Sharif Christianson Primary Care Unavailable Sharif Christianson Referring Unavailable Shannan Waldrop Attending Unavailable Sharif Christianson Primary Care Unavailable Sharif Christianson Referring Unavailable Leah PRESS HAND, Sabi Attending Unavailable Sharif Christianson Primary Care Unavailable Sharif Christianson Referring Unavailable Xenia Gilliland Attending Unavailable Sharif Christianson Primary Care Unavailable Leah PRESS HAND, Sabi Attending Unavailable Sharif Christianson Referring Unavailable Sharif Christianson Primary Care Unavailable Leah PRESS HAND, Sabi Attending Unavailable Sharif Christianson Referring Unavailable Sharif Christianson Primary Care Unavailable Leah PRESS HAND, Sabi Attending Unavailable Sharif Christianson Referring Unavailable Sharif Christianson Primary Care Unavailable Qiana Grover Consulting Unavailable Qiana Grover Attending Unavailable Sharif Christianson Referring Unavailable Sharif Christianson Primary Care Unavailable Sharif Christianson Referring Unavailable Shannan Waldrop Attending Unavailable Sharif Christianson Primary Care Unavailable Leah PRESS HAND, Sabi Attending Unavailable Sharif Christianson Primary Care Unavailable Sharif Christianson Referring Unavailable Shannan Waldrop Attending Unavailable Pniky Winter V Consulting Unavailable Shannan Waldrop Attending Unavailable Sharif Christianson Primary Care Unavailable Shannan Waldrop Referring Unavailable Allergies Allergy Classification Reported Allergen(s) Allergy Type Date of Onset Reaction(s) Facility (19 sources) Acetaminophen / oxyCODONE; Translations: [OXYCODONE-ACETAMI OUMARHEN] Drug Allergy 10-21-2019 Itching [facility] (13 sources) [facility] Drug Allergy 03-15-2025 [facility] Repository Medications Current Medications Medication Drug Class(es) Dates Sig (Normalized) Sig (Original) acetaminophen 325 mg / oxyCODONE hydrochloride 5 mg oral tablet (7 sources) Opioid Agonist Start: 01-25-2025 Oxycodone-Acetamino phen 5-325 mg tablet Active 1 {tbl} PO EVERY 6 HOURS as needed 0 January 25, 2025 12:00am atorvastatin 40 mg oral tablet (20 sources) HMG-CoA Reductase Inhibitor Start: 10-12-2024 Atorvastatin 40 mg tablet Active 20 mg PO AT BEDTIME October 12, 2024 11:16am Start: 06-14-2023 End: 10-12-2024 take 1 tablet by mouth at bedtime Atorvastatin 40 mg tablet Discontinued 40 mg PO AT BEDTIME 90 3 July 23, 2024 6:35pm October 12, 2024 11:17am Start: 07-21-2019 End: 10-01-2022 take 1 tablet by mouth once daily Atorvastatin 40 mg tablet Discontinued 40 mg PO DAILY 90 4 March 23, 2020 1:37pm April 05, 2022 6:27pm Start: 10-17-2015 take 1 tablet by rick th once daily ATORVASTATIN CALCIUM 80 MG TABS One tablet by mouth every night ATORVASTATIN CALCIUM [id number] Eder Davis MD Comment on above: Take 40 mg by mouth once daily. 1 tablet by ORAL/FEE DING TUBE route daily at bedtime. 12 hr buPROPion hydrochloride 150 mg extended release oral tablet (17 sources) Aminoketone Start: 023 take 1 tablet by mouth every twelve hours Bupropion Hcl 150 mg tablet sustained-release 12 hr Active 150 mg PO Q12H June 11, 2023 12:00am calcium carbonate 1500 mg / cholecalciferol 200 unt oral capsule (4 sources) Vitamin D Start: 022 take 1 capsule by mouth once daily Calcium Carbonate-Vitamin D3 Active 1 CAP PO DAILY October 01, 2021 1:00am cilostazol 100 mg oral tablet (20 sources) Phosphodiesterase 3 Inhibitor Start: 025 take 1 tablet by mouth twice daily Cilostazol 100 mg tablet Active 100 mg PO TWICE A DAY March 08, 2025 12:00am Start: 10-06-2023 End: 09-21-2024 take 1 tablet by mouth twice daily Cilostazol 100 mg tablet Discontinued 100 mg PO TWICE A DAY October 06, 2023 1:00am September 21, 2024 9:02am Start: 01-29-2023 End: 06-14-2023 take 1 tablet by mouth twice daily Cilostazol 100 mg tablet Discontinued 100 mg PO TWICE A DAY January 29, 2023 12:00am June 14, 2023 7:26am Start: 06-20-2020 take 100 mg by mouth twice daily Cilostazol Active 100 MG PO TWICE A DAY June 20, 2020 9:02am Start: 01-21-2020 End: 06-20-2020 take 1 tablet by mouth once Cilostazol 100 mg tablet Discontinued 100 mg PO ONCE January 21, 2020 12:00am June 20, 2020 9:03am Comment on above: Take 100 mg by mouth twice daily. 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 neoplasm of upper lobe, left bronchus or lung Lifetime ; no expiration Start: 09-07-2024 Disability Thao card Active 0 .Route .MEDSUPPLY 1 September 07, 2024 2:45pm Lifetime ; no expiration Start: 09-07-2024 End: 09-07-2024 Disability Placard Discontin ued 0 .Route .MEDSUPPLY 1 0 September 07, 2024 9:37am September 07, 2024 2:45pm Cancer of upper lobe of left lung Malignant neoplasm of upper lobe, left bronchus or lung Lifetime ; no expiration Start: 09-07-2024 End: 09-07-2024 Disability Placard Discontin ued 0 .Route .MEDSUPPLY 1 September 07, 2024 9:37am September 07, 2024 2:45pm Lifetime ; no expiration Start: 10-14-2023 End: 09-07-2024 Disability Placard Discontin ued 0 .Route .MEDSUPPLY 1 0 October 14, 2023 1:36pm September 07, 2024 9:39am Cancer of upper lobe of left lung Malignant neoplasm of upper lobe, left bronchus or lung . Start: 10-14-2023 End: 09-07-2024 Disability Placard Discontin ued 0 .Route .MEDSUPPLY 1 October 14, 2023 1:36pm September 07, 2024 9:39am . Start: 10-14-2023 Disability Thao card Active 0 .Route .MEDSUPPLY 1 October 14, 2023 1:36pm . Start: 10-14-2023 End: 10-14-2023 Disability Placard Discontin ued 0 .Route .MEDSUPPLY 1 0 October 14, 2023 1:00am October 14, 2024 1:00am October 14, 2023 1:36pm Cancer of upper lobe of left lung Malignant neoplasm of upper lobe, left bronchus or lung . Start: 10-14-2023 End: 10-14-2023 Disability Placard Discontin ued 0 .Route .MEDSUPPLY 1 October 14, 2023 1:00am October 14, 2024 1:00am October 14, 2023 1:36pm . Start: 10-14-2023 End: 10-14-2023 Disability Placard Discontin ued 0 .Route .MEDSUPPLY 1 October 14, 2023 1:00am October 14, 2023 1:36pm . levothyroxine sodium 0.05 mg oral tablet (7 sources) l-Thyroxine Start: 01-04-2025 take 1 tablet by mouth once daily Levothyroxine (Synthroid) 50 mcg tablet Active 50 ug PO daily 90 January 04, 2025 12:00am Hypothyroidism Hypothyroidism, unspecified Adjust dose in future as instructed lidocaine 25 mg/ml / prilocaine 25 mg/ml topical cream (20 sources) Antiarrhythmic, Amide Local Anesthetic Start: 07-17-2023 End: 11-02-2024 Lidocaine-Prilocaine 2.5-2.5 % cream Active 1 NMA TOPICAL ONCE as needed for port access November 02, 2024 11:02am Start: 07-17-2023 Lidocaine-Pril ocaine Active 1 APPLIC TOPICAL ONCE July 17, 2023 1:00am lisinopril 5 mg oral tablet (20 sources) Angiotensin Converting Enzyme Inhibitor Start: 08-31-2024 take 1 tablet by mouth once daily Lisinopril 5 mg tablet Active 5 mg PO daily August 31, 2024 1:00am Start: 05-30-2022 End: 06-14-2023 take 1 tablet by mouth once daily Lisinopril 20 mg tablet Discontinued 20 mg PO DAILY 90 3 October 24, 2022 9:46am June 14, 2023 7:26am bp Start: 10-08-2015 End: 05-30-2022 take 1 tablet by mouth at bedtime Lisinopril 10 mg tablet Discontinued 10 mg PO AT BEDTIME 90 3 February 07, 2021 12:28pm October 01, 2021 12:13pm Comment on above: Take 10 mg by mouth once daily. metFORMIN hydrochloride 1000 mg oral tablet (20 sources) Biguanide Start: 10-01-2022 take 1 tablet by mouth twice daily Metformin 1,000 mg tablet Active 1000 mg PO TWICE A DAY October 01, 2022 9:46am dm Start: 09-29-2020 End: 10-01-2022 Metformin 1,000 mg tablet Discontinued 500 mg PO TWICE A DAY September 29, 2020 1:00am October 01, 2022 9:48am dm Start: 09-29-2020 End: 10-01-2022 take 500 mg by mouth twice daily Metformin Discontinued 500 MG PO TWICE A DAY September 29, 2020 1:00am October 01, 2022 9:48am Start: 09-29-2020 take 1000 mg by mout h twice daily Metformin Active 1000 MG PO TWICE A DAY September 29, 2020 1:00am Start: 10-17-2015 take 4 tablets by mo uth once daily METFORMIN HCL ER 500 MG [id number] four tablets by mouth daily METFORMIN HCL [id number] Eder Davis MD Start: 10-17-2015 take 2 tablets by mo uth twice daily METFORMIN HCL ER 500 MG [id number] Two tablets by mouth twice daily METFORMIN HCL [id number] Arely Smart RN Start: 10-08-2015 End: 09-29-2020 take 2 tablets by mouth twice daily Metformin 500 MG tablet Discontinued 1000 mg PO TWICE A DAY October 08, 2015 1:00am September 29, 2020 2:41pm Start: 10-08-2015 End: 09-29-2020 take 1000 mg by mouth twice daily Metformin Discontinued 1000 MG PO TWICE A DAY October 08, 2015 1:00am September 29, 2020 2:41pm take 0.5 mg by mouth twice daily in the evening METFORMIN HCL (METFORMIN ORAL) Take 500 mg by mouth twice daily. Take 0.5 mg in the AM and 0.5mg in the PM 0 Active Comment on above: Take 1,000 mg by rick th twice daily. Take 500 mg by mouth twice daily. Take 0.5 mg in the AM and 0.5mg in the PM metoprolol tartrate 25 mg oral tablet (20 sources) beta-Adrenergic Palomo Start: 09-06-2024 take 1 tablet by mouth once daily Metoprolol Tartrate 25 mg tablet Active 25 mg PO daily September 06, 2024 3:40pm Start: 06-14-2023 End: 09-06-2024 Metoprolol Tartrate 25 mg ta blet Discontinued 12.5 mg PO TWICE A DAY July 23, 2024 6:36pm September 06, 2024 3:41pm Start: 06-14-2023 End: 07-14-2023 take 12.5 mg by mouth twice daily Metoprolol Tartrate Active 12.5 MG PO TWICE A DAY July 14, 2023 1:27pm Start: 12-04-2017 End: 06-26-2018 Metoprolol Tartrate 25 mg ta blet Discontinued 12.5 mg PO TWICE A DAY December 04, 2017 12:10pm June 26, 2018 3:00pm Start: 12-04-2017 End: 06-26-2018 take 12.5 mg by mouth twice daily Metoprolol Tartrate Discontinued 12.5 MG PO TWICE A DAY December 04, 2017 12:10pm June 26, 2018 3:00pm Start: 10-17-2015 take 1 tablet by rick twice daily METOPROLOL TARTRATE 25 MG TABS One half tablet by mouth twice daily METOPROLOL TARTRATE [id number] Eder Davis MD omeprazole 20 mg delayed release oral tablet (20 sources) Proton Pump Inhibitor Start: 12-14-2024 take 1 tablet by mouth once daily Omeprazole 20 mg tablet,delayed release (DR/EC) Active 20 mg PO daily December 14, 2024 12:00am Start: 08-13-2023 End: 02-23-2024 take 1 tablet by mouth once daily Omeprazole 20 mg tablet,delayed release (DR/EC) Discontinued 20 mg PO DAILY August 13, 2023 1:00am February 23, 2024 8:28am ondansetron 8 mg disintegrating oral tablet (20 sources) Serotonin-3 Receptor Antagonist Start: 07-17-2023 End: 06-02-2024 take 1 tablet by mouth every eight hours as needed for nausea and vomiting Ondansetron 8 mg tablet,disintegrating Active 8 mg PO Q8H as needed for nausea and vomiting June 02, 2024 1:51pm 24 hr oxybutynin chloride 15 mg extended release oral tablet (20 sources) Cholinergic Muscarinic Antagonist Start: 10-01-2021 take 1 tablet by mouth once daily Oxybutynin Chloride 15 mg tablet extended release 24hr Active 15 mg PO DAILY October 01, 2021 1:00am bladder Start: 09-17-2021 End: 10-01-2021 take 1 tablet by mouth once daily Oxybutynin Chloride 5 mg tablet Discontinued 5 mg PO DAILY September 17, 2021 1:00am October 01, 2021 11:43am End: 02-14-2022 take 1 tablet by mouth twice daily oxybutynin ER (DITROPAN XL) 15 mg 24 hr Extended Rel Tab Take 7.5 mg by mouth twice daily. 0 02/14/2022 Discontinued Comment on above: Take 15 mg by mouth once daily. Take 7.5 mg by mouth twice daily. 4 ml pembrolizumab 25 mg/ml injection (8 sources) Programmed Receptor-1 Blocking Antibody Start: 12-30-2024 Pembrolizumab 25 mg/mL solution Active 200 mg .ROUTE .COMPLEX 8 December 30, 2024 12:00am Cancer of upper lobe of left lung Malignant neoplasm of upper lobe, left bronchus or lung 200 mg Every 3 weeks; Completed/Discontinued Medications Medication Drug Class(es) Dates Sig (Normalized) Sig (Original) acetaminophen 500 mg oral tablet (20 sources) Start: 04-05-2022 take 1000 mg by mouth every six hours Acetaminophen Active 1000 MG PO EVERY 6 HOURS April 05, 2022 12:00am Start: 11-14-2021 End: 11-10-2024 take 2 tablets by mouth every six hours as needed for pain Acetaminophen 500 mg Tablet Discontinued 1000 mg PO EVERY 6 HOURS as needed for Pain April 05, 2022 12:00am November 10, 2024 1:20pm Comment on above: Take 2 tablets by [facility] every 6 hours as needed for pain. 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 Start: 02-25-2020 End: 03-01-2020 Hydrocodone-Acetaminophen Di scontinued 1 EACH PO EVERY 4 HOURS NEEDED 14 5 February 25, 2020 March 01, 2020 12:02am amLODIPine 5 mg oral tablet (20 sources) Dihydropyridine Calcium Channel Palomo Start: 02-02-2018 End: 07-21-2019 take 1 tablet by mouth once daily Amlodipine 5 mg tablet Discontinued 5 mg PO daily 30 0 August 12, 2018 11:46am July 21, 2019 2:00pm Start: 10-17-2015 take 1 tablet by rick th once daily AMLODIPINE BESYLATE 5 MG TABS One tablet by mouth daily AMLODIPINE BESYLATE [id number] Eder Davis MD amoxicillin 500 mg oral capsule (13 sources) Penicillin-class Antibacterial Start: 08-21-2023 End: 08-26-2023 take 1 capsule by mouth every eight hours Amoxicillin 500 mg capsule Discontinued 500 mg PO Q8H 15 5 0 August 21, 2023 1:00am August 25, 2023 1:00am August 26, 2023 1:04am Urinary tract infection Urinary tract infection, site not specified aspirin 81 mg delayed release oral tablet (20 sources) Platelet Aggregation Inhibitor, Nonsteroidal Anti-inflammatory Drug Start: 06-14-2023 End: 10-12-2024 take 1 tablet by mouth at breakfast Aspirin 81 mg tablet,delayed release (DR/EC) Discontinued 81 mg PO WITH BREAKFAST 90 3 August 09, 2024 11:06am October 12, 2024 11:15am Start: 10-17-2015 take 1 tablet by rick th once daily aspirin, enteric coated (ASPIRIN, ENTERIC COATED) 81 mg EC tablet Take 1 tablet by mouth once daily. 0 10/17/2015 Suspended Start: 10-17-2015 take 1 tablet by rick th once daily ASPIRIN 81 MG TABS One tablet by mouth daily ASPIRIN [id number] Arely Smart RN Start: 10-17-2015 take 1 tablet by rick th once daily ASPIRIN 81 MG TABS One tablet by mouth daily ASPIRIN [id number] Arely Smart RN Comment on above: Take 81 mg by mouth once daily. Take 1 tablet by rick th once daily. bee pollen 580 mg oral capsule (6 sources) Start: 6 End: 6 take 1 tablet by mouth once daily BEE POLLEN 580 MG CAPS One tablet by mouth daily BEE POLLEN [id number] Arely Smart RN bisacodyl 5 mg delayed release oral tablet (20 sources) Stimulant Laxative Start: 3 End: 3 take 1 tablet by mouth at bedtime as needed for constipation Bisacodyl 5 mg tablet Discontinued 5 mg PO AT BEDTIME as needed for constipation January 29, 2023 12:00am August 12, 2023 9:25am Bisacodyl (DULCO LAX) 5 mg tab Take 5 mg by mouth as needed for constipation. 0 Active Comment on above: Take 5 mg by mouth a s needed for constipation. Calcium (20 sources) Phosphate Binder, Calcium Start: 05-21-2021 End: 10-01-2021 take 600 mg by mouth once daily Calcium Discontinued 600 MG PO DAILY May 21, 2021 2:35pm October 01, 2021 11:45am Start: 05-21-2021 End: 10-01-2021 take 1 capsule by mouth once daily Calcium 600 mg Capsule Discontinued 600 mg PO DAILY May 21, 2021 12:00am October 01, 2021 11:45am Start: 05-21-2021 End: 10-01-2021 take 600 mg by mouth once daily Calcium Discontinued 6 00 MG PO DAILY May 20, 2021 11:00pm October 01, 2021 10:45am Start: 05-21-2021 End: 10-01-2021 take 600 mg by mouth once daily Calcium Discontinued 6 00 MG PO DAILY May 21, 2021 12:00am October 01, 2021 11:45am cephalexin 500 mg oral capsule (20 sources) Cephalosporin Antibacterial Start: 02-25-2020 End: 06-20-2020 take 1 capsule by mouth twice daily Cephalexin 500 MG capsule Discontinued 500 mg PO TWICE A DAY 20 February 25, 2020 12:00am June 20, 2020 9:03am cholecalciferol 1.25 mg oral capsule (20 sources) Vitamin D Start: 04-21-2024 End: 05-19-2024 take 1 capsule by mouth every month Cholecalciferol (Vitamin D3) 1,250 mcg (50,000 unit) capsule Discontinued 1250 ug PO EVERY MONTH April 21, 2024 12:00am May 19, 2024 1:21pm Start: 10-06-2023 End: 02-23-2024 take 1 capsule by mouth every month Cholecalciferol (Vitamin D3) 1,250 mcg (50,000 unit) capsule Discontinued 1250 ug PO EVERY MONTH October 06, 2023 1:00am February 23, 2024 8:29am Start: 04-05-2022 End: 10-01-2022 take 1 tablet by mouth once daily Cholecalciferol (Vitamin D3) (Vitamin D3) 125 mcg (5,000 unit) Tablet Discontinued 125 ug PO DAILY April 05, 2022 12:00am October 01, 2022 9:46am supp Start: 11-14-2021 take 1 tablet by rick th once daily cholecalciferol (VITAMIN D3) 5,000 unit tab Take 1 tablet by mouth once daily. 0 11/14/2021 Active Comment on above: Take 1 tablet by rick th once daily. ciprofloxacin 250 mg oral tablet (20 sources) Quinolone Antimicrobial Start: 022 End: take 1 tablet by mouth twice daily for urinary tract infection Ciprofloxacin Hcl 250 mg Tablet Discontinued 250 mg PO TWICE A DAY 5 0 April 17, 2022 12:00am April 29, 2022 11:09am Take 1 tab 2 times a day until gone for UTI Comment on above: Take 250 mg by mouth twice daily. #5 days starting 04.17.2022 clopidogrel 75 mg oral tablet (20 sources) [id number] Platelet Inhibitor Start: 023 End: take 1 tablet by mouth once daily Clopidogrel 75 mg tablet Discontinued 75 mg PO DAILY 90 3 July 23, 2024 6:37pm July 27, 2024 9:55am Start: 10-17-2015 End: 03-28-2022 take 1 tablet by mouth once daily Clopidogrel (Plavix) 75 mg tablet Discontinued 75 mg PO daily 90 3 February 26, 2021 4:31pm October 01, 2021 12:13pm Comment on above: Take 75 mg by mouth once daily. Take by mouth. Cranberry Fruit Concentrate (20 sources) Non-Standardized Food Allergenic Extract, Non-Standardized Plant Allergenic Extract Start: End: take 1 tablet by mouth three times daily as needed Cranberry Fruit Concentrate (Azo Cranberry) 250 mg tablet,chewable Discontinued 250 mg PO THREE TIMES A DAY as needed July 30, 2022 1:00am October 01, 2022 9:46am Start: 07-30-2022 End: 10-01-2022 take 1 tablet by mouth three times daily Cranberry Fruit Concentrate (Azo Cranberry) 250 mg tablet,chewable Discontinued 250 MG PO THREE TIMES A DAY July 30, 2022 1:00am October 01, 2022 9:46am Start: 07-30-2022 End: 10-01-2022 take 1 tablet by mouth three times daily Cranberry Fruit Concentrate (Azo Cranberry) 250 mg tablet,chewable Discontinued 250 MG PO THREE TIMES A DAY July 30, 2022 12:00am October 01, 2022 8:46am Start: 07-30-2022 take 1 tablet by rick th three times daily Cranberry Fruit Concentrate (Azo Cranberry) 250 mg tablet,chewable Active 250 MG PO THREE TIMES A DAY July 30, 2022 12:00am dexamethasone 4 mg oral tablet (9 sources) Corticosteroid Start: 03-04-2024 End: 07-05-2024 Dexamethasone 4 mg tablet Discontinued 4 mg PO TWICE A DAY 30 3 March 04, 2024 12:00am July 05, 2024 10:38am Cancer of upper lobe of left lung Malignant neoplasm of upper lobe, left bronchus or lung Take 1 tablet twice daily for 3 days ( starting day before chemotherapy, then day of chemotherapy then day after chemotherapy) and repeat cycle every 3 weeks as instructed docosahexaenoic acid 144 mg / eicosapentaenoic acid 216 mg / vitamin e 2 unt oral capsule (20 sources) Start: 01-29-2023 End: 05-01-2023 Crosby-3 Fatty Acids-Fish Oil (Fish Oil) 360-1,200 mg capsule Discontinued 1 NMA PO DAILY January 29, 2023 12:00am May 01, 2023 8:15am docusate sodium 100 mg oral capsule (17 sources) Start: 08-12-2023 End: 10-12-2024 take 1 capsule by mouth twice daily as needed for constipation Docusate Sodium (Colace) 100 mg capsule Discontinued 100 mg PO TWICE A DAY as needed for constipation August 12, 2023 1:00am October 12, 2024 11:16am Start: 10-01-2021 take 1 capsule by mo [facility] three times weekly Docusate Sodium (Colace) 100 mg capsule Active 100 MG PO .COMPLEX October 01, 2021 1:00am 100 mg PO 3 times per week; docusate sodium 50 mg / sennosides, halfway 8.6 mg oral tablet (15 sources) Start: 11-14-2021 End: 05-23-2022 take 1 tablet by mouth twice daily senna-docusate (SENNA-S) 8.6-50 mg per tablet Take 1 tablet by mouth twice daily. 0 11/14/2021 05/23/2022 Discontinued (Patient chooses alternative therapy) Comment on above: Take 1 tablet by [facility] twice daily. 0.5 ml dulaglutide 1.5 mg/ml auto-injector (8 sources) GLP-1 Receptor Agonist Start: 12-14-2024 End: 01-04-2025 Dulaglutide (Trulicity) 0.75 mg/0.5 mL pen injector Discontinued 0.75 mg SC EVERY WEEK December 14, 2024 12:00am January 04, 2025 1:17pm empagliflozin 25 mg oral tablet (20 sources) Sodium-Glucose Cotransporter 2 Inhibitor Start: 10-01-2021 End: 10-01-2022 take 1 tablet by mouth once daily Empagliflozin 25 mg tablet Discontinued 25 mg PO DAILY@0800 October 01, 2021 1:00am October 01, 2022 9:47am dm Start: 09-27-2020 End: 10-01-2021 take 1 tablet by mouth once daily Empagliflozin 10 MG tablet Discontinued 10 mg PO DAILY September 27, 2020 1:00am October 01, 2021 11:44am Comment on above: Take 25 mg by mouth daily with breakfast. ferrous sulfate 325 mg oral tablet (1 source) End: take 1 tablet by mouth once daily at breakfast ferrous sulfate (IRON) 325 mg (65 mg iron) tablet Take 325 mg by mouth daily with breakfast. gummies 0 01/15/2022 Discontinued (Side Effects) Comment on above: Take 325 mg by mouth daily with breakfast. gummies folic acid 1 mg oral tablet (20 sources) Start: 4 End: 5 take 1 tablet by mouth once daily Folic Acid 1 mg tablet Discontinued 1 mg PO DAILY 90 1 March 04, 2024 12:00am October 12, 2024 11:16am Cancer of upper lobe of left lung Malignant neoplasm of upper lobe, left bronchus or lung Start: 12-17-2021 End: 04-18-2022 take 1 tablet by mouth once daily Folic Acid 1 mg Tablet Discontinued 1 mg PO DAILY April 05, 2022 12:00am April 17, 2022 10:52am supp Comment on above: Take 1 mg by mouth o nce daily. glimepiride 4 mg oral tablet (20 sources) Sulfonylurea Start: 6 End: 0 take 1 tablet by mouth once daily Glimepiride 4 MG tablet Discontinued 4 mg PO DAILY October 08, 2015 1:00am January 21, 2020 9:24am INSULIN GLARGINE (3 sources) Insulin Analog Start: 6 LANTUS 100 UNIT/ML SOLN 25 units per day INSULIN GLARGINE [id number] Leticia A Euceda SERVICER-C Start: 05-30-2016 LANTUS 100 UNI T/ML SOLN 25 units per day INSULIN GLARGINE [id number] Leticia A [employer] SERVICER-[facility] lacosamide 100 mg oral tablet (20 sources) Anti-epileptic Agent Start: 04-05-2022 End: 10-01-2022 take 1 tablet by mouth twice daily Lacosamide 100 mg Tablet Discontinued 100 mg PO TWICE A DAY 60 0 April 17, 2022 11:07am October 01, 2022 9:47am sewizure Comment on above: 1 tablet by ORAL/FEEDING TUBE route twic e daily for 30 days. loratadine 10 mg oral tablet (9 sources) Start: 08-09-2024 End: 11-10-2024 take 1 tablet by mouth once daily as needed Loratadine 10 mg tablet Discontinued 10 mg PO daily as needed for allergy symptoms August 09, 2024 1:00am November 10, 2024 1:21pm LORazepam 0.5 mg oral tablet (20 sources) Benzodiazepine Start: 10-08-2015 End: 07-21-2019 take 1 tablet by mouth once daily as needed for anxiety Lorazepam 0.5 MG tablet Discontinued 0.5 mg PO DAILY NEEDED as needed for Anxiety October 08, 2015 1:00am July 21, 2019 2:00pm Magic Mouth Wash (Bmx) (4 sources) Start: 08-13-2023 End: 12-08-2023 Magic Mouth Wash (Bmx) Discontinued 15 ML PO .Q6HR 180 August 13, 2023 1:00am December 08, 2023 2:36pm diphenhydramine 12.5 mg/5 mL oral liquid 60 mL; aluminum-mag hydroxide-simethicon e 400 mg-400 mg-40 mg/5 mL oral susp 60 mL; Lidocaine Viscous 2 % mucosal solution 60 mL; Per 180 mL Start: 08-13-2023 Magic Mouth Wa sh (Bmx) Active 15 ML PO .Q6HR 180 August 13, 2023 1:00am diphenhydramine 12.5 mg/5 mL oral liquid 60 mL; aluminum-mag hydroxide-simethicone 400 mg-400 mg-40 mg/5 mL oral susp 60 mL; Lidocaine Viscous 2 % mucosal solution 60 mL; Per 180 mL Start: 08-13-2023 Magic Mouth Wa sh (Bmx) Active 15 ML PO .Q6HR 180 August 13, 2023 12:00am diphenhydramine 12.5 mg/5 mL oral liquid 60 mL; aluminum-mag hydroxide-simethicone 400 mg-400 mg-40 mg/5 mL oral susp 60 mL; Lidocaine Viscous 2 % mucosal solution 60 mL; Per 180 mL Magic Mouth Wash (Bmx) 180 mL suspension (9 sources) Start: 08-13-2023 End: 12-08-2023 Magic Mouth Wash (Bmx) 180 m L suspension Discontinued 15 mL PO .Q6HR 180 August 13, 2023 1:00am December 08, 2023 2:36pm Stomatitis Other forms of stomatitis diphenhydramine 12.5 mg/5 mL oral liquid 60 mL; aluminum-mag hydroxide-simethicone 400 mg-400 mg-40 mg/5 mL oral susp 60 mL; Lidocaine Viscous 2 % mucosal solution 60 mL; Per 180 mL Start: 08-13-2023 End: 12-08-2023 Magic Mouth Wash (Bmx) 180 m L suspension Discontinued 15 mL PO .Q6HR 180 August 13, 2023 1:00am December 08, 2023 2:36pm diphenhydramine 12.5 mg/5 mL oral liquid 60 mL; aluminum-mag hydroxide-simethicone 400 mg-400 mg-40 mg/5 mL oral susp 60 mL; Lidocaine Viscous 2 % mucosal solution 60 mL; Per 180 mL magnesium citrate 58.2 mg/ml oral solution (13 sources) Start: 08-12-2023 End: 08-20-2023 take 1 mL by mouth once daily as needed Magnesium Citrate solution Discontinued 150 mL PO DAILY as needed August 12, 2023 1:00am August 20, 2023 9:34am Start: 08-12-2023 End: 08-20-2023 take 1 mL by mouth once daily Magnesium Citrate Discon tinued 150 ML PO DAILY August 12, 2023 1:00am August 20, 2023 9:34am magnesium oxide 400 mg oral tablet (9 sources) Start: 07-27-2024 End: 12-14-2024 take 1 tablet by mouth once daily Magnesium Oxide 400 mg magnesium tablet Discontinued 400 mg PO daily July 27, 2024 1:00am December 14, 2024 10:43am melatonin 5 mg oral tablet (20 sources) Start: 01-29-2023 End: 02-11-2024 take 1 tablet by mouth at bedtime as needed for sleep Melatonin 5 mg tablet Discontinued 5 mg PO BEDTIME as needed for sleep January 29, 2023 12:00am February 11, 2024 8:13am Start: 04-05-2022 End: 10-01-2022 take 1 tablet by mouth at bedtime Melatonin 5 mg Tablet Discontinued 5 mg PO AT BEDTIME April 05, 2022 12:00am October 01, 2022 9:47am sleep Start: 11-14-2021 take 5 tablets by mo ut once daily at bedtime melatonin 1 mg tablet 5 tablets by ORAL/FEEDING TUBE route daily at bedtime. 0 11/14/2021 Active Comment on above: 5 tablets by ORAL/FE EDING TUBE route daily at bedtime. meloxicam 15 mg oral tablet (20 sources) Nonsteroidal Anti-inflammatory Drug Start: 10-08-19 End: 06-26-20 take 1 tablet by mouth once daily Meloxicam 15 MG tablet Discontinued 15 mg PO DAILY October 08, 2015 1:00am June 26, 2018 3:00pm 24 hr nicotine 0.875 mg/hr transdermal system (20 sources) Cholinergic Nicotinic Agonist Start: 06-11-20 End: 10-06-19 apply 1 dose transdermal route every twenty-four hours Nicotine 21 mg/24 hr patch 24 hour Discontinued 1 NMA TD Q24H June 11, 2023 12:00am October 06, 2023 3:27pm Start: 04-17-2022 End: 10-01-2022 apply 1 dose transdermal route every twenty-four hours Nicotine (Nicoderm Cq) 14 mg/24 hr patch 24 hour Discontinued 1 NMA TD DAILY 14 0 April 17, 2022 12:00am October 01, 2022 9:47am Start: 04-17-2022 End: 10-01-2022 apply 1 dose transdermal route once daily, then apply 1 dose transdermal route every twenty-four hours Nicotine (Nicoderm Cq) 14 mg/24 hr patch 24 hour Discontinued 1 PATCH TD DAILY 14 April 17, 2022 12:00am October 01, 2022 9:47am Start: 04-05-2022 End: 10-01-2022 apply 1 dose transdermal route every twenty-four hours Nicotine 21 mg/24 hr Patch 24 Hour Discontinued 21 mg TD Q24H 14 14 0 April 17, 2022 12:00am October 01, 2022 9:47am Start: 10-17-2015 End: 05-30-2016 NICOTINE 7 MG/24HR PT24 one patch transderm daily NICOTINE [id number] Arely Smart RN End: 03-28-2022 nicotine (NICODERM) 7 mg/24 hr Apply 1 Patch as directed every 24 hours. 0 03/28/2022 Discontinued Comment on above: Apply 1 Patch as dir ected every 24 hours. nitrofurantoin, macrocrystals 100 mg oral capsule (13 sources) Nitrofuran Antibacterial Start: End: take 1 capsule by mouth twice daily at mealtime Nitrofurantoin Macrocrystal 100 mg capsule Discontinued 100 mg PO TWICE A DAY September 03, 2023 1:00am February 23, 2024 8:29am must administer with a meal/food oxyCODONE hydrochloride 5 mg oral tablet (20 sources) Opioid Agonist Start: 022 End: 023 take 1 tablet by mouth every six hours as needed for pain Oxycodone 5 mg Tablet Discontinued 5 mg PO EVERY 6 HOURS NEEDED as needed for Pain Score 6-10 20 7 0 April 17, 2022 October 01, 2022 9:47am Subdural hematoma Status post craniotomy Other specified postprocedural states take 2.5 mg by mouth every six hours as needed oxyCODONE IR (ROXICODONE) 5 mg immediate release tablet Take 2.5 mg by mouth every 6 hours as needed for pain. 0 Active Comment on above: Take 2.5 mg by mouth every 6 hours as needed for pain. Take by mouth every 6 hours as needed for pain. pantoprazole 40 mg delayed release oral tablet (20 sources) Proton Pump Inhibitor Start: 04-17-20 22 End: 10-01-19 23 take 1 tablet by mouth once daily Pantoprazole 40 mg Tablet,Delayed Release (Dr/Ec) Discontinued 40 mg PO DAILY 30 0 April 17, 2022 12:00am October 01, 2022 9:47am Comment on above: Take 40 mg by mouth once daily. phenazopyridine hydrochloride 100 mg oral tablet (20 sources) Start: 02-25-20 20 End: 06-20-20 20 take 1 tablet by mouth twice daily Phenazopyridine 100 MG tablet Discontinued 100 mg PO TWICE A DAY 20 0 February 25, 2020 12:00am June 20, 2020 9:03am Start: 02-14-2019 End: 07-21-2019 take 1 tablet by mouth three times daily Phenazopyridine 200 MG tablet Discontinued 200 mg PO THREE TIMES A DAY 6 0 February 14, 2019 12:00am July 21, 2019 2:00pm Start: 02-14-2019 End: 07-21-2019 take 1 tablet by mouth three times daily Phenazopyridine 95 MG tablet Discontinued 95 mg PO THREE TIMES A DAY 6 0 February 14, 2019 12:00am July 21, 2019 2:00pm Start: 03-04-2016 End: 06-26-2018 take 1 tablet by mouth twice daily as needed for pain Phenazopyridine 200 MG tablet Discontinued 200 mg PO TWICE DAILY NEEDED as needed for Pain 10 0 March 04, 2016 12:00am June 26, 2018 3:01pm polyethylene glycol 3350 35380 mg powder for oral solution (20 sources) Osmotic Laxative Start: 11-14-2021 End: 10-01-2022 take 17 g by mouth once daily Polyethylene Glycol 3350 17 gram/dose powder Discontinued 17 g PO DAILY 510 0 April 17, 2022 11:07am October 01, 2022 9:47am Comment on above: Take 1 Packet by rick th once daily. Dissolve dose in 4 - 8 ounces of liquid and take as directed. Sennosides (Senna) 8.6 mg tablet (20 sources) Start: 01-29-2023 End: 10-12-2024 take 1 tablet by mouth once daily as needed for constipation Sennosides (Senna) 8.6 mg tablet Discontinued 8.6 mg PO DAILY as needed for constipation January 29, 2023 12:00am October 12, 2024 11:16am Start: 01-29-2023 take 1 tablet by rick th once daily Sennosides (Senna) 8.6 mg tablet Active 8.6 MG PO DAILY January 28, 2023 11:00pm Start: 01-29-2023 take 1 tablet by rick th once daily Sennosides (Senna) 8.6 mg tablet Active 8.6 MG PO DAILY January 29, 2023 12:00am sulfamethoxazole 800 mg / trimethoprim 160 mg oral tablet (20 sources) Dihydrofolate Reductase Inhibitor Antibacterial, Sulfonamide Antimicrobial Start: 03-04-2016 End: 06-26-2018 Sulfamethoxazole-Trimethopri m 1 TABLET tablet Discontinued 1 {tbl} PO TWICE A DAY 10 March 04, 2016 12:00am June 26, 2018 3:01pm Start: 03-04-2016 End: 06-26-2018 take 1 tablet by mouth twice daily Sulfamethoxazole-Trimethoprim Discontinu ed 1 TABLET PO TWICE A DAY March 04, 2016 12:00am June 26, 2018 3:01pm Problems Active Problems Problem Classification Problem Date Documented Da te Episodic/Chronic Acute cerebrovascular disease (20 sources) Intracranial hemorrhage; Translations: [Nontraumatic intracranial hemorrhage, unspecified] Onset: 10-28-2021 Chronic Acute myocardial infarction (20 sources) Myocardial infarction; Translations: [Non-ST elevation (NSTEMI) myocardial infarction] 06-11-2023 Chronic Acute posthemorrhagic anemia (20 sources) Anemia due to blood loss; Translations: [Acute posthemorrhagic anemia] Episodic Administrative/social admission (4 sources) Counseling, unspecified; Translations: [Counseling NOS] 07-17-2023 Episodic Alcohol-related disorders (20 sources) Alcohol use, unspecified with intoxication, unspecified; Translations: [Alcohol abuse, unspecified] Onset: 11-07-2021 11-07-2021 Episodic Cancer of bronchus; lung (20 sources) Malignant neoplasm of unspecified part of unspecified bronchus or lung; Translations: [Malignant neoplasm of upper lobe of left lung] Onset: 06-19-2023 07-02-2023 Chronic Cardiac dysrhythmias (20 sources) Ectopic atrial beats; Translations: [Atrial premature depolarization] 05-01-2022 Chronic Cardiac dysrhythmias (20 sources) Palpitations; Translations: [Palpitations] Episodic Conditions associated with dizziness or vertigo (20 sources) Lightheadedness; Translations: [Dizziness and giddiness] Onset: 03-31-2025 05-01-2022 Episodic Coronary atherosclerosis and other heart disease (20 sources) Atherosclerotic heart disease of [place] coronary artery without angina pectoris; Translations: [Coronary atherosclerosis] Onset: 10-17-2015 10-17-2015 Chronic Deficiency and other anemia (20 sources) Iron deficiency anemia due to blood loss; Translations: [Iron deficiency anemia secondary to blood loss (chronic)] Onset: 01-23-2021 01-23-2021 Chronic Deficiency and other anemia (20 sources) Iron deficiency anemia secondary to blood loss (chronic); Translations: [Iron deficiency anemia secondary to blood loss (chronic)] Onset: 03-31-2025 Chronic Deficiency and other anemia (12 sources) Nutritional anemia; Translations: [Vitamin B12 deficiency anemia, unspecified] 10-06-2023 Episodic Diabetes mellitus with complications (8 sources) Type 2 diabetes mellitus; Translations: [Type 2 diabetes mellitus with hyperglycemia] Onset: 02-01-2022 04-03-2022 Chronic Diabetes mellitus without complication (20 sources) Diabetes mellitus without complication; Translations: [Type 2 diabetes mellitus without complications] Onset: 01-22-2022 Chronic Comment on above: ORAL MEDS Diseases of white blood cells (11 sources) Drug-induced neutropenia; Translations: [Other drug-induced agranulocytosis] Onset: 08-09-2024 06-03-2024 Chronic Disorders of lipid metabolism (20 sources) Hyperlipidemia; Translations: [Hyperlipidemia, unspecified] Onset: 10-17-2015 10-17-2015 Chronic Diverticulosis and diverticulitis (20 sources) Diverticular disease; Translations: [Diverticulosis of intestine, part unspecified, without perforation or abscess without bleeding] Chronic E Codes: Fall (20 sources) Fall; Translations: [Unspecified fall, initial encounter] Onset: 10-28-2021 10-28-2021 Episodic Essential hypertension (20 sources) Hypertensive disorder; Translations: [Essential hypertension] Onset: 10-17-2015 10-17-2015 Chronic Fluid and electrolyte disorders (8 sources) Metabolic acidosis; Translations: [Acidosis] Onset: 03-31-2022 03-31-2022 Episodic Gastritis and duodenitis (20 sources) Gastritis; Translations: [Gastritis, unspecified, without bleeding] Episodic Genitourinary symptoms and ill-defined conditions (20 sources) Urinary incontinence; Translations: [Unspecified urinary incontinence] Chronic Headache; including migraine (20 sources) Generalized headache; Translations: [Generalized headache] 05-01-2022 Episodic Headache; including migraine (1 source) Headache; including migraine; Translations: [Headache, unspecified] Onset: 07-12-2024 Intracranial injury (20 sources) Subdural hematoma; Translations: [Traumatic subdural hemorrhage with loss of consciousness of unspecified duration, initial encounter] Onset: 10-28-2021 10-28-2021 Episodic Maintenance chemotherapy; radiotherapy (20 sources) Patient encounter status; Translations: [Encounter for antineoplastic chemotherapy] Onset: 08-09-2024 08-12-2023 Chronic Malaise and fatigue (20 sources) Asthenia; Translations: [Other malaise] Episodic Nausea and vomiting (9 sources) Chemotherapy-induced nausea and vomiting; Translations: [Nausea with vomiting, unspecified] 07-05-2024 Episodic Nutritional deficiencies (20 sources) Vitamin D deficiency; Translations: [Vitamin D deficiency, unspecified] Onset: 11-07-2021 11-07-2021 Chronic Open wounds of head; neck; and trunk (20 sources) Scalp laceration; Translations: [Laceration without foreign body of scalp, initial encounter] 11-04-2021 Episodic Other acquired deformities (8 sources) Acquired defect of skull; Translations: [Other acquired deformity of head] Onset: 01-15-2022 Episodic Other acquired deformities (2 sources) Skull finding; Translations: [Other acquired deformity of head] Episodic Other aftercare (4 sources) Encounter for adjustment and management of vascular access device; Translations: [Fitting and adjustment, other device] 07-18-2023 Episodic Other and unspecified benign neoplasm (20 sources) Polyp ; Translations: [Benign neoplasm, unspecified site] 04-29-2022 Episodic Other and unspecified benign neoplasm (12 sources) Benign neoplasm, unspecified site; Translations: [Benign neoplasm of unspecified site] Episodic Other circulatory disease (15 sources) Disorder of carotid artery; Translations: [Disorder of arteries and arterioles, unspecified] 11-11-2024 Chronic Other circulatory disease (1 source) Disorder of arteries and arterioles, unspecified; Translations: [Disorder of arteries and arterioles, unspecified] Onset: 11-17-2024 Chronic Other circulatory disease (20 sources) History of subdural hematoma; Translations: [Personal history of other diseases of the circulatory system] 05-01-2022 Episodic Other gastrointestinal disorders (8 sources) Dysphagia; Translations: [Dysphagia, unspecified] Onset: 04-01-2022 04-01-2022 Episodic Other gastrointestinal disorders (13 sources) Constipation; Translations: [Constipation, unspecified] 08-04-2023 Episodic Other lower respiratory disease (14 sources) Nodule of lung; Translations: [Solitary pulmonary nodule] 04-29-2022 Episodic Other lower respiratory disease (18 sources) Solitary pulmonary nodule; Translations: [Solitary pulmonary nodule] Episodic Other lower respiratory disease (9 sources) Multiple nodules of lung; Translations: [Other nonspecific abnormal finding of lung field] 01-05-2024 Episodic Other nervous system disorders (17 sources) Uncinate herniation; 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] Onset: 10-28-2021 10-28-2021 Chronic Other nervous system disorders (8 sources) Compression of brain; 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] Onset: 03-28-2022 03-28-2022 Chronic Other nervous system disorders (2 sources) Compression of brain; 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0-44.9, adult; Translations: [Body mass index (BMI) 40.0-44.9, adult] Onset: 10-18-2015 05-30-2016 Chronic Other nutritional; endocrine; and metabolic disorders (2 sources) Body mass index (BMI) 37.0-37.9, adult; Translations: [Body mass index (BMI) 37.0-37.9, adult] Onset: 10-18-2015 10-18-2015 Chronic Other nutritional; endocrine; and metabolic disorders (17 sources) Obese class II; Translations: [Obesity, unspecified] Onset: 07-05-2019 07-05-2019 Chronic Other nutritional; endocrine; and metabolic disorders (17 sources) Hypocalcemia; Translations: [Hypocalcemia] Onset: 10-28-2021 11-07-2021 Chronic Other nutritional; endocrine; and metabolic disorders (10 sources) Hypomagnesemia; Translations: [Hypomagnesemia] 07-05-2024 Chronic Other nutritional; endocrine; and metabolic disorders (1 source) Hypomagnesemia; Translations: [Hypomagnesemia] Onset: 08-09-2024 Chronic Other skin disorders (10 sources) Bilateral localized swelling of lower legs; Translations: [Localized swelling, mass and lump, lower limb, bilateral] 07-27-2024 Episodic Other upper respiratory infections (9 sources) Viral upper respiratory tract infection; Translations: [Acute upper respiratory infection, unspecified] 06-28-2024 Episodic Peripheral and visceral atherosclerosis (20 sources) Intermittent claudication; Translations: [Peripheral vascular disease, unspecified] Onset: 03-08-2025 Chronic Comment on above: Resolved after stent to the RLE. abnormal JEANIE 2016 Residual codes; unclassified (20 sources) Patient encounter status; Translations: [Encounter for prophylactic measures, unspecified] Onset: 03-31-2022 03-31-2022 Episodic Residual codes; unclassified (8 sources) Delirium; Translations: [Disorientation, unspecified] Onset: 04-01-2022 04-01-2022 Episodic Residual codes; unclassified (20 sources) History of craniotomy; Translations: [Other specified postprocedural states] 04-08-2022 Episodic Comment on above: 03/28/22 for R SDH at [facility] by Dr. Greer Residual codes; unclassified (5 sources) Other specified postprocedural states; Translations: [Other postprocedural status] Episodic Residual codes; unclassified (9 sources) At risk of deep vein thrombosis; Translations: [Other specified personal risk factors, not elsewhere classified] 07-27-2024 Episodic Secondary malignancies (18 sources) Secondary malignant neoplasm of lung; Translations: [Secondary malignant neoplasm of unspecified lung] 01-25-2025 Chronic Secondary malignancies (2 sources) Secondary malignant neoplasm of right lung; Translations: [Secondary malignant neoplasm of right lung] Onset: 03-31-2025 Chronic Secondary malignancies (1 source) Secondary malignant neoplasm of left lung; Translations: [Secondary malignant neoplasm of left lung] Onset: 03-31-2025 Chronic Spondylosis; intervertebral disc disorders; other back problems (4 sources) Low back pain; Translations: [Low back pain] 03-08-2025 Episodic Substance-related disorders (20 sources) Nicotine dependence; Translations: [Nicotine dependence, unspecified, uncomplicated] Onset: 10-17-2015 10-17-2015 Chronic Substance-related disorders (6 sources) Nicotine dependence, unspecified, uncomplicated; Translations: [Tobacco use disorder] Onset: 11-07-2021 Chronic Thyroid disorders (20 sources) Hypothyroidism; Translations: [Hypothyroidism, unspecified] Onset: 03-31-2025 01-04-2025 Chronic Comment on above: Secondary to PD-L1 i nhibitor immunotherapy Unclassified (1 source) Placement of stent in coronary artery ; Translations: [Presence of coronary angioplasty implant and graft] Onset: 10-17-2015 10-17-2015 Unclassified (2 sources) Long-term drug therapy; Translations: [Other fpc (current) drug therapy] Onset: 10-17-2015 10-17-2015 Unclassified (1 source) Acute subdural hematoma; Translations: [Acute subdural hematoma] Onset: 05-23-2022 Unclassified (1 source) Low back pain, unspecified; Translations: [Low back pain, unspecified] Onset: 03-14-2025 Urinary tract infections (13 sources) Urinary tract infectious disease; Translations: [Urinary tract infection, site not specified] 08-21-2023 Episodic Viral infection (20 sources) Disease caused by 2019-nCoV; Translations: [COVID-19] 06-11-2023 Episodic Past or Other Problems Problem Classification Problem Date Documented Da te Episodic/Chronic Calculus of urinary tract (17 sources) Kidney stone; Translations: [Calculus of kidney] Onset: 10-21-2016 10-21-2016 Episodic Coronary atherosclerosis and other heart disease (10 sources) Presence of coronary angioplasty implant and graft; Translations: [Percutaneous transluminal coronary angioplasty status] Onset: 10-10-2015 Episodic Deficiency and other anemia (1 source) Vitamin B12 deficiency anemia, unspecified; Translations: [Vitamin B12 deficiency anemia, unspecified] Onset: 08-09-2024 Episodic E Codes: Adverse effects of medical drugs (17 sources) Iron adverse reaction; Translations: [Adverse effect of iron and its compounds, initial encounter] Onset: 01-23-2021 01-23-2021 Episodic Other acquired deformities (3 sources) Other acquired deformity of head; Translations: [Skull defect] Onset: 01-15-2022 Episodic Other aftercare (4 sources) salvage determiner (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) use of antithrombotics/ant iplatelets; Translations: [Other fpc (current) drug therapy] Onset: 10-17-2015 10-17-2015 Episodic Other aftercare (10 sources) Long-term current use of anticoagulant; Translations: [salvage determiner (current) use of anticoagulants] Onset: 10-21-2016 10-21-2016 Episodic Other gastrointestinal disorders (17 sources) Oropharyngeal dysphagia; Translations: [Dysphagia, oropharyngeal phase] Onset: 11-06-2021 11-06-2021 Episodic Other gastrointestinal disorders (1 source) Dysphagia, oropharyngeal phase; Translations: [Oropharyngeal dysphagia] Onset: 11-06-2021 Episodic Other gastrointestinal disorders (4 sources) Constipation, unspecified; Translations: [Constipation, unspecified] Onset: 06-07-2024 08-04-2023 Episodic Other screening for suspected conditions (not mental disorders or infectious disease) (20 sources) Abnormal finding on evaluation procedure; Translations: [Abnormal results of function studies of other organs and systems] Onset: 10-20-2024 04-08-2022 Episodic Other skin disorders (1 source) Localized swelling, mass and lump, lower limb, bilateral; Translations: [Localized swelling, mass and lump, lower limb, bilateral] Onset: 08-27-2024 Episodic Residual codes; unclassified (1 source) Other specified personal risk factors, not elsewhere classified; Translations: [Other specified personal risk factors, not elsewhere classified] Onset: 07-27-2024 Episodic Respiratory failure; insufficiency; arrest (adult) (18 sources) Respiratory failure following trauma; Translations: [Respiratory failure, unspecified, unspecified whether with hypoxia or hypercapnia] Onset: 10-28-2021 11-07-2021 Episodic Screening and history of mental health and substance abuse codes (18 sources) Tobacco use and exposure - finding; Translations: [Personal history of nicotine dependence] Onset: 10-21-2016 10-21-2016 Episodic Varicose veins of lower extremity (16 sources) Varicose veins of lower limb co-occurrent with edema; Translations: [Varicose veins of bilateral lower extremities with other complications] Onset: 11-17-2024 11-11-2024 Episodic Results Test Name Value Interpretation Reference Range Facility CT Chest AND Abd W/ Contrast on 03-28-2025 CT Chest AND Abd W/ Contrast Normal [facility] Absolute lymphocyte countOrd ered By: Shannan Waldrop on 03-15-2025 Lymphocytes Auto (Unsp spec) [#/Vol] 1.05 10*3/uL 0.83-4.51 [facility] Absolute neutrophil countOrd ered By: Shannan Waldrop on 03-15-2025 Neutrophils (Bld) [#/Vol] 5.3 10*3/uL 2.0-7.7 [facility] Anion gap in Serum or Plasma Ordered By: Shannan Waldrop on 03-15-2025 Anion gap [Moles/Vol] 15 mmol/L 5-15 [facility] Automated lymphocyte count a s percentage of total leukocytesOrdered By: Shannan Benjie on 03-15-2025 Lymphocytes/100 WBC Auto (Unsp spec) 14.0 % Low 19-41 [facility] BUN/creatinine ratioOrdered By: Shannan Benjie on 03-15-2025 Urea nitrogen/Creatinine [Mass ratio] 9.3 mg/mg Low 10-20 [facility] Basophil percentageOrdered B y: Shannan Benjie on 03-15-2025 Basophils/100 WBC (Bld) 0.5 % 0-1 [facility] Bilirubin, totalOrdered By: Springja Waldrop on 03-15-2025 Bilirubin [Mass/Vol] 0.28 mg/dL 0.00-1.30 [facility] CBC W/Diff, Automatedon 02-16 Anisocytosis Ql (Bld) 1+ Normal [facility] Comment on above: Performed By: #### L 100.0100, L500.4050, L501.9520, L501.2300 ####[facility] [address] [place], [address] MACROCYTOSIS 1+ Normal [facility] Comment on above: Performed By: #### L 100.0100, L500.4050, [id number], L501.2300 ####[facility] [address] [place], [address] OVALOCYTE 1+ Normal [facility] Comment on above: Performed By: #### L 100.0100, L500.4050, [id number], L501.2300 ####[facility] [address] [place], [address] PLT EST A Normal ADEQ [facility] Comment on above: Performed By: #### L 100.0100, L500.4050, [id number], L501.2300 ####[facility] [address] [place], [address] Carbon dioxide, total [Moles /volume] in Central venous bloodOrdered By: Shannan Waldrop on 03-15-2025 CO2 [Moles/Vol] 20.0 mmol/L Low 21.0-32.0 [facility] Chloride assayOrdered By: Adriana cleoja Waldrop on 03-15-2025 Chloride [Moles/Vol] 102 mmol/L 98-108 [facility] Comprehensive Metabolic Prof ilon 03-15-2025 Albumin [Mass/Vol] 4.0 g/dL Normal 3.4-4.8 [facility] Comment on above: Performed By: #### L 100.0100, L500.4050, [id number], L501.2300 ####[facility] [address] [place], [address] Albumin/Globulin [Mass ratio] 1.4 {ratio} Normal 0.9-2.4 [facility] Comment on above: Performed By: #### L 100.0100, L500.4050, [id number], L501.2300 ####[facility] [address] [place], [address] ALK PHOS 74 U/L Normal 35-104 [facility] Comment on above: Performed By: #### L 100.0100, L500.4050, [id number], L501.2300 ####[facility] [address] [place], [address] ALT [Catalytic activity/Vol] 9 U/L Normal <=34 [facility] Comment on above: Performed By: #### L 100.0100, L500.4050, [id number], L501.2300 ####[facility] [address] [place], [address] AST [Catalytic activity/Vol] 18 U/L Normal <=31 [facility] Comment on above: Performed By: #### L 100.0100, L500.4050, [id number], L501.2300 ####[facility] [address] [place], [address] Bilirubin [Mass/Vol] 0.28 mg/dL Normal 0.00-1.30 [facility] Comment on above: Performed By: #### L 100.0100, L500.4050, [id number], L501.2300 ####[facility] [address] [place], [address] BUN/CRE 9.3 RATIO Low 10-20 [facility] Comment on above: Performed By: #### L 100.0100, L500.4050, [id number], [id number] ####[facility] [address] [place], [address] Calcium [Mass/Vol] 8.9 mg/dL Normal 7.6-11.0 [facility] Comment on above: Performed By: #### L 100.0100, L500.4050, [id number], L501.2300 ####[facility] [address] [place], [address] Chloride [Moles/Vol] 102 mmol/L Normal 98-108 [facility] Comment on above: Performed By: #### L 100.0100, L500.4050, [id number], L501.2300 ####[facility] [address] [place], [address] CO2 [Moles/Vol] 20.0 mmol/L Low 21.0-32.0 [facility] Comment on above: Performed By: #### L 100.0100, L500.4050, [id number], L501.2300 ####[facility] [address] [place], [address] Creatinine [Mass/Vol] 0.79 mg/dL Normal 0.70-1.20 [facility] Comment on above: Performed By: #### L 100.0100, L500.4050, [id number], L501.2300 ####[facility] [address] [place], [address] ECRCL 64.72 ml/min Normal 50-250 [facility] Comment on above: Performed By: #### L 100.0100, L500.4050, [id number], L501.2300 ####[facility] [address] [place], [address] GAP 15 Normal 5-15 [facility] Comment on above: Performed By: #### L 100.0100, L500.4050, [id number], L501.2300 ####[facility] [address] [place], [address] GFR/1.73 sq M.predicted among non-blacks MDRD (S/P/Bld) [Vol rate/Area] 81 mL/min/{1.73_m2} Normal >60 [facility] Comment on above: Result Comment: mL/m in/1.73m2 CKD-EPI Creatinine Equation (2020) Performed By: #### L 100.0100, L500.4050, [id number], L501.2300 ####[facility] [address] [place], [address] Globulin (S) [Mass/Vol] 2.8 g/dL Normal 2.2-4.2 [facility] Comment on above: Performed By: #### L 100.0100, L500.4050, [id number], L501.2300 ####[facility] [address] [place], [address] Glucose [Mass/Vol] 152 mg/dL High 70-99 [facility] Comment on above: Performed By: #### L 100.0100, L500.4050, [id number], L501.2300 ####[facility] [address] [place], [address] Potassium [Moles/Vol] 4.1 mmol/L Normal 3.3-5.1 [facility] Comment on above: Performed By: #### L 100.0100, L500.4050, [id number], L501.2300 ####[facility] [address] [place], [address] Sodium [Moles/Vol] 137 mmol/L Normal 133-145 [facility] Comment on above: Performed By: #### L 100.0100, L500.4050, [id number], L501.2300 ####[facility] [address] [place], [address] T PROT 6.8 g/dL Normal 5.9-8.4 [facility] Comment on above: Performed By: #### L 100.0100, L500.4050, [id number], L501.2300 ####[facility] [address] [place], [address] Urea nitrogen [Mass/Vol] 7 mg/dL Normal 4-19 [facility] Comment on above: Performed By: #### L 100.0100, L500.4050, [id number], L501.2300 ####[facility] [address] [place], [address] Eosinophil percentageOrdered By: Shannan Waldrop on 03-15-2025 Eosinophils/100 WBC (Bld) 2.0 % 0-5 [facility] Erythrocyte distribution wid th ratioOrdered By: Shannan Waldrop on 03-15-2025 Erythrocyte distribution width (RBC) [Ratio] 20.6 % High 11.6-14.6 [facility] Erythrocyte distribution wid th standard deviationOrdered By: Shannan Waldrop on 03-15-2025 Erythrocyte distribution width (RBC) [Ratio] 63.2 fl High 35.1-43.9 [facility] Glomerular filtration rate ( GFR) estimation/1.73 sq m using serum, plasma, or whole bOrdered By: Shannan Waldrop on 03-15-2025 GFR/1.73 sq M.predicted among non-blacks MDRD (S/P/Bld) [Vol rate/Area] 81 mL/min/{1.73_m2} >60 [facility] Comment on above: mL/min/1.73m2 CKD-EP I Creatinine Equation (2020) Hematocrit Auto (Bld) [Volum e fraction]Ordered By: Shannan Waldrop on 03-15-2025 Hematocrit (Bld) [Volume fraction] 33.2 % Low 37-47 [facility] Hemoglobin measurementOrdere d By: Shannan Waldrop on 03-15-2025 Hemoglobin (Bld) [Mass/Vol] 10.4 g/dL Low 12.0-15.0 [facility] Immature granulocytes/100 WB C Auto (Bld)Ordered By: Shannan Waldrop on 03-15-2025 Immature granulocytes/100 WBC (Bld) 0.400 % 0.0-0.9 [facility] Comment on above: IG% - Immature Granu locytes (promyelocytes, myelocytes and metamyelocytes) > 1% indicates that a LEFT SHIFT is Present. Laboratory - Chemistry and C hemistry - challengeOrdered By: Shannan Waldrop on 03-15-2025 AST [Catalytic activity/Vol] 18 U/L <32 [facility] Laboratory - Hematology and Cell countsOrdered By: Shannan Waldrop on 03-15-2025 Anisocytosis Ql (Bld) 1+ [facility] MCV (mean corpuscular volume ) determinationOrdered By: Shannan Waldrop on 03-15-2025 MCV (RBC) [Entitic vol] 84.9 fL 81-99 [facility] Macrocytes detectionOrdered By: Shannan Waldrop on 03-15-2025 Macrocytes Ql (Bld) 1+ [facility] Magnesiumon 03-15-2025 Magnesium [Mass/Vol] 1.5 mg/dL Normal 1.5-2.2 [facility] Comment on above: Performed By: #### L 501.7170, L506.0400 ####[facility] [address] [place], [address] Magnesium measurement (mass/ volume)Ordered By: [facility] on 03-15-2025 Magnesium (Unsp spec) [Mass/Vol] 1.5 mg/dL 1.5-2.2 [facility] Mean corpuscular hemoglobin (MCH) determinationOrdered By: [facility] on 03-15-2025 MCH (RBC) [Entitic mass] 26.6 pg Low 27.0-32.0 [facility] Mean corpuscular hemoglobin concentration (MCHC) determinationOrdered By: [facility] on 03-15-2025 MCHC (RBC) [Mass/Vol] 31.3 g/dL Low 32-36 [facility] Mean platelet volume determi nationOrdered By: [facility] on 03-15-2025 Platelet mean volume (Bld) [Entitic vol] 8.8 fL 6.2-12.0 [facility] Monocyte percentageOrdered B y: [facility] on 03-15-2025 Monocytes/100 WBC (Bld) 13.1 % High 0-10 [facility] Neutrophil percentageOrdered By: [facility] on 03-15-2025 Neutrophils/100 WBC (Bld) 70.0 % 47-70 [facility] Nucleated red blood cell per centageOrdered By: [facility] on 03-15-2025 Nucleated RBC/100 WBC (Bld) [Ratio] 0 % 0-5 [facility] Oncology Visit Reporton 02-16 Oncology Visit Report Normal [facility] Ovalocyte detectionOrdered B y: [facility] on 03-15-2025 Ovalocytes LM Ql (Bld) 1+ [facility] Phosphoruson 03-15-2025 Phosphate [Mass/Vol] 2.9 mg/dL Normal 2.7-4.5 [facility] Comment on above: Performed By: #### L 100.0100, L500.4050, L501.9520, L501.2300 ####[facility] [address] [place], [address] Platelet countOrdered By: Adriana Waldrop on 03-15-2025 Platelets (Bld) [#/Vol] 248 10*3/uL 150-450 [facility] Platelet estimateOrdered By: Shannan Waldrop on 03-15-2025 Platelets LM Ql (Bld) A ADEQ [facility] Potassium measurement (mass/ volume)Ordered By: Shannan Waldrop on 03-15-2025 Potassium (Unsp spec) [Mass/Vol] 4.1 mmol/L 3.3-5.1 [facility] RBC Auto (Bld) [#/Vol]Ordere d By: Shannan Waldrop on 03-15-2025 RBC (Bld) [#/Vol] 3.91 10*6/uL Low 4.2-5.4 [facility] Serum creatinine measurement (mass/volume)Ordered By: Shannan Waldrop on 03-15-2025 Creatinine [Mass/Vol] 0.79 mg/dL 0.70-1.20 [facility] Serum globulin measurementOr dered By: Shannan Waldrop on 03-15-2025 Globulin (S) [Mass/Vol] 2.8 g/dL 2.2-4.2 [facility] Serum glucose measurement (m ass/volume)Ordered By: Shannan Waldrop on 03-15-2025 Glucose [Mass/Vol] 152 mg/dL High 70-99 [facility] Serum or plasma alanine amezquita otransferase (ALT) measurementOrdered By: Shannan Waldrop on 03-15-2025 ALT [Catalytic activity/Vol] 9 U/L <35 [facility] Serum or plasma albumin joaquin urement (mass/volume)Ordered By: Shannan Waldrop on 03-15-2025 Albumin [Mass/Vol] 4.0 g/dL 3.4-4.8 [facility] Serum or plasma albumin/glob ulin mass ratioOrdered By: Shannan Waldrop on 03-15-2025 Albumin/Globulin [Mass ratio] 1.4 {ratio} 0.9-2.4 [facility] Serum or plasma alkaline gumaro sphatase measurementOrdered By: Shannan Waldrop on 03-15-2025 ALP [Catalytic activity/Vol] 74 U/L 35-104 [facility] Serum or plasma calcium joaquin urement (mass/volume)Ordered By: Shannan Benjie on 03-15-2025 Calcium [Mass/Vol] 8.9 mg/dL 7.6-11.0 [facility] Serum or plasma urea nitroge n measurement (mass/volume)Ordered By: Shannan Benjie on 03-15-2025 Urea nitrogen [Mass/Vol] 7 mg/dL 4-19 [facility] Sodium levelOrdered By: Spring peres Benjie on 03-15-2025 Sodium [Moles/Vol] 137 mmol/L 133-145 [facility] T4 Free Directon 03-15-2025 T4 FREE DIRECT 0.50 ng/dL Low 0.76-1.46 [facility] Comment on above: Performed By: #### L 501.5200, L506.0400 ####[facility] [address] [place], [place], [id number] T4 freeOrdered By: Shannan Katie julio on 03-15-2025 Free T4 [Mass/Vol] 0.50 ng/dL Low 0.76-1.46 [facility] TSH DL <= 0.005 mIU/L QnOrde red By: Shannan Benjie on 03-15-2025 TSH Qn 45.800 uIU/mL High 0.300-4.200 [facility] Thyroid Stim Hormone (TSH)on 03-15-2025 TSH 45.800 uIU/mL High 0.300-4.200 [facility] Comment on above: Performed By: #### L 100.0100, L500.4050, L501.9520, L501.2300 ####[facility] [address] [place], [place], [id number] Total proteinOrdered By: Howard french Benjie on 03-15-2025 Protein [Mass/Vol] 6.8 g/dL 5.9-8.4 [facility] Vitamin B12on 03-15-2025 Cobalamin (Vitamin B12) [Mass/Vol] 527 pg/mL Normal 180-914 [facility] Comment on above: Order Comment: ADD O N Performed By: #### L 503.0106 ####[facility] [address] [place], [address] Vitamin B12 ser/plasOrdered By: Nic Hall on 03-15-2025 Cobalamin (Vitamin B12) [Mass/Vol] 527 pg/mL 180-914 [facility] White blood cell (WBC) count Ordered By: Shannan Waldrop on 03-15-2025 WBC (Bld) [#/Vol] 7.5 10*3/uL 4.4-11.0 [facility] Lumbar Spine 2 or 3 Viewson 03-08-2025 Lumbar Spine 2 or 3 Views Normal [facility] MR/BMS.BVSon 03-08-2025 MR/BMS.BVS Normal [facility] Absolute lymphocyte countOrd ered By: Shannan Waldrop on 02-22-2025 Lymphocytes Auto (Unsp spec) [#/Vol] 1.16 10*3/uL 0.83-4.51 [facility] Absolute neutrophil countOrd ered By: Shannan Waldrop on 02-22-2025 Neutrophils (Bld) [#/Vol] 5.6 10*3/uL 2.0-7.7 [facility] Anion gap in Serum or Plasma Ordered By: Shannan Waldrop on 02-22-2025 Anion gap [Moles/Vol] 14 mmol/L 5-15 [facility] Automated lymphocyte count a s percentage of total leukocytesOrdered By: Shannan Waldrop on 02-22-2025 Lymphocytes/100 WBC Auto (Unsp spec) 15.0 % Low 19-41 [facility] BUN/creatinine ratioOrdered By: Shannan Waldrop on 02-22-2025 Urea nitrogen/Creatinine [Mass ratio] 11.1 mg/mg 10-20 [facility] Basophil percentageOrdered B y: Shannan Waldrop on 02-22-2025 Basophils/100 WBC (Bld) 0.3 % 0-1 [facility] Bilirubin, totalOrdered By: Shannan Waldrop on 02-22-2025 Bilirubin [Mass/Vol] 0.37 mg/dL 0.00-1.30 [facility] CBC W/Diff, Automatedon 07-0 8-2025 Absolute Lymph 1.16 X10 3/uL Normal 0.83-4.51 [facility] Comment on above: Performed By: #### L 501.9520, L100.0100, L500.4050, L501.2300 ####[facility] [address] [place], [address] Absolute Neut 5.6 X10 3/uL Normal 2.0-7.7 [facility] Comment on above: Performed By: #### L 501.9520, L100.0100, L500.4050, L501.2300 ####[facility] [address] [place], [address] Basophils/100 WBC (Bld) 0.3 % Normal 0-1 [facility] Comment on above: Performed By: #### L 501.9520, L100.0100, L500.4050, L501.2300 ####[facility] [address] [place], [address] Eosinophils/100 WBC (Bld) 1.3 % Normal 0-5 [facility] Comment on above: Performed By: #### L 501.9520, L100.0100, L500.4050, L501.2300 ####[facility] [address] [place], [address] Erythrocyte distribution width (RBC) [Ratio] 19.8 % High 11.6-14.6 [facility] Comment on above: Performed By: #### L 501.9520, L100.0100, L500.4050, L501.2300 ####[facility] [address] [place], [address] Hematocrit (Bld) [Volume fraction] 33.5 % Low 37-47 [facility] Comment on above: Performed By: #### L 501.9520, L100.0100, L500.4050, L501.2300 ####[facility] [address] [place], [address] Hemoglobin (Bld) [Mass/Vol] 10.3 g/dL Low 12.0-15.0 [facility] Comment on above: Performed By: #### L 501.9520, L100.0100, L500.4050, L501.2300 ####[facility] [address] [place], [address] IG% 0.100 Normal 0.0-0.9 [facility] Comment on above: Result Comment: IG% - Immature Granulocytes (promyelocytes, myelocytes andmetamyelocytes) > 1% indicates that a LEFT SHIFT is Present. Performed By: #### L 501.9520, L100.0100, L500.4050, L501.2300 ####[facility] [address] [place], [address] Lymphocytes/100 WBC (Bld) 15.0 % Low 19-41 [facility] Comment on above: Performed By: #### L 501.9520, L100.0100, L500.4050, L501.2300 ####[facility] [address] [place], [address] MCH (RBC) [Entitic mass] 25.9 pg Low 27.0-32.0 [facility] Comment on above: Performed By: #### L 501.9520, L100.0100, L500.4050, L501.2300 ####[facility] [address] [place], [address] MCHC (RBC) [Mass/Vol] 30.7 g/dL Low 32-36 [facility] Comment on above: Performed By: #### L 501.9520, L100.0100, L500.4050, L501.2300 ####[facility] [address] [place], [address] MCV (RBC) [Entitic vol] 84.4 fL Normal 81-99 [facility] Comment on above: Performed By: #### L 501.9520, L100.0100, L500.4050, L501.2300 ####[facility] [address] [place], [address] Monocytes/100 WBC (Bld) 11.1 % High 0-10 [facility] Comment on above: Performed By: #### L 501.9520, L100.0100, L500.4050, L501.2300 ####[facility] [address] [place], [address] Neutrophils/100 WBC (Bld) 72.2 % High 47-70 [facility] Comment on above: Performed By: #### L 501.9520, L100.0100, L500.4050, L501.2300 ####[facility] [address] [place], [address] Nucleated RBC (Bld) [#/Vol] 0 10*3/uL Normal 0-5 [facility] Comment on above: Performed By: #### L 501.9520, L100.0100, L500.4050, L501.2300 ####[facility] [address] [place], [address] Platelet mean volume (Bld) [Entitic vol] 8.6 fL Normal 6.2-12.0 [facility] Comment on above: Performed By: #### L 501.9520, L100.0100, L500.4050, L501.2300 ####[facility] [address] [place], [address] Platelets (Bld) [#/Vol] 306 10*3/uL Normal 150-450 [facility] Comment on above: Performed By: #### L 501.9520, L100.0100, L500.4050, L501.2300 ####[facility] [address] [place], [address] RBC (Bld) [#/Vol] 3.97 10*6/uL Low 4.2-5.4 [facility] Comment on above: Performed By: #### L 501.9520, L100.0100, L500.4050, L501.2300 ####[facility] [address] [place], [address] RDW SD 60.5 fl High 35.1-43.9 [facility] Comment on above: Performed By: #### L 501.9520, L100.0100, L500.4050, L501.2300 ####[facility] [address] [place], [address] WBC (Bld) [#/Vol] 7.8 10*3/uL Normal 4.4-11.0 [facility] Comment on above: Performed By: #### L 501.9520, L100.0100, L500.4050, L501.2300 ####[facility] [address] [place], [address] Carbon dioxide, total [Moles /volume] in Central venous bloodOrdered By: Shannan Waldrop on 02-22-2025 CO2 [Moles/Vol] 21.2 mmol/L 21.0-32.0 [facility] Chloride assayOrdered By: Adriana Waldrop on 02-22-2025 Chloride [Moles/Vol] 103 mmol/L 98-108 [facility] Comprehensive Metabolic Prof ilon 02-22-2025 Albumin [Mass/Vol] 4.0 g/dL Normal 3.4-4.8 [facility] Comment on above: Performed By: #### L 501.9520, L100.0100, L500.4050, L501.2300 ####[facility] [address] [place], [address] Albumin/Globulin [Mass ratio] 1.5 {ratio} Normal 0.9-2.4 [facility] Comment on above: Performed By: #### L 501.9520, L100.0100, L500.4050, L501.2300 ####[facility] [address] [place], [address] ALK PHOS 83 U/L Normal 35-104 [facility] Comment on above: Performed By: #### L 501.9520, L100.0100, L500.4050, L501.2300 ####[facility] [address] [place], [address] ALT [Catalytic activity/Vol] 9 U/L Normal <=34 [facility] Comment on above: Performed By: #### L 501.9520, L100.0100, L500.4050, L501.2300 ####[facility] [address] [place], [address] AST [Catalytic activity/Vol] 18 U/L Normal <=31 [facility] Comment on above: Performed By: #### L 501.9520, L100.0100, L500.4050, L501.2300 ####[facility] [address] [place], [address] Bilirubin [Mass/Vol] 0.37 mg/dL Normal 0.00-1.30 [facility] Comment on above: Performed By: #### L 501.9520, L100.0100, L500.4050, L501.2300 ####[facility] [address] [place], [address] BUN/CRE 11.1 RATIO Normal 10-20 [facility] Comment on above: Performed By: #### L 501.9520, L100.0100, L500.4050, L501.2300 ####[facility] [address] [place], [address] Calcium [Mass/Vol] 8.6 mg/dL Normal 7.6-11.0 [facility] Comment on above: Performed By: #### L 501.9520, L100.0100, L500.4050, L501.2300 ####[facility] [address] [place], [address] Chloride [Moles/Vol] 103 mmol/L Normal 98-108 [facility] Comment on above: Performed By: #### L 501.9520, L100.0100, L500.4050, L501.2300 ####[facility] [address] [place], [address] CO2 [Moles/Vol] 21.2 mmol/L Normal 21.0-32.0 [facility] Comment on above: Performed By: #### L 501.9520, L100.0100, L500.4050, L501.2300 ####[facility] [address] [place], [address] Creatinine [Mass/Vol] 0.88 mg/dL Normal 0.70-1.20 [facility] Comment on above: Performed By: #### L 501.9520, L100.0100, L500.4050, L501.2300 ####[facility] [address] [place], [address] ECRCL 58.84 ml/min Normal 50-250 [facility] Comment on above: Performed By: #### L 501.9520, L100.0100, L500.4050, L501.2300 ####[facility] [address] [place], [address] GAP 14 Normal 5-15 [facility] Comment on above: Performed By: #### L 501.9520, L100.0100, L500.4050, L501.2300 ####[facility] [address] [place], [address] GFR/1.73 sq M.predicted among non-blacks MDRD (S/P/Bld) [Vol rate/Area] 71 mL/min/{1.73_m2} Normal >60 [facility] Comment on above: Result Comment: mL/m in/1.73m2 CKD-EPI Creatinine Equation (2020) Performed By: #### L 501.9520, L100.0100, L500.4050, L501.2300 ####[facility] [address] [place], [address] Globulin (S) [Mass/Vol] 2.8 g/dL Normal 2.2-4.2 [facility] Comment on above: Performed By: #### L 501.9520, L100.0100, L500.4050, L501.2300 ####[facility] [address] [place], [address] Glucose [Mass/Vol] 222 mg/dL High 70-99 [facility] Comment on above: Performed By: #### L 501.9520, L100.0100, L500.4050, L501.2300 ####[facility] [address] [place], [address] Potassium [Moles/Vol] 4.1 mmol/L Normal 3.3-5.1 [facility] Comment on above: Performed By: #### L 501.9520, L100.0100, L500.4050, L501.2300 ####[facility] [address] [place], [address] Sodium [Moles/Vol] 138 mmol/L Normal 133-145 [facility] Comment on above: Performed By: #### L 501.9520, L100.0100, L500.4050, L501.2300 ####[facility] [address] [place], [address] T PROT 6.8 g/dL Normal 5.9-8.4 [facility] Comment on above: Performed By: #### L 501.9520, L100.0100, L500.4050, L501.2300 ####[facility] [address] [place], [address] Urea nitrogen [Mass/Vol] 10 mg/dL Normal 4-19 [facility] Comment on above: Performed By: #### L 501.9520, L100.0100, L500.4050, L501.2300 ####[facility] [address] [place], [address] Eosinophil percentageOrdered By: Shannan Waldrop on 02-22-2025 Eosinophils/100 WBC (Bld) 1.3 % 0-5 [facility] Erythrocyte distribution wid th ratioOrdered By: Shannan Waldrop on 02-22-2025 Erythrocyte distribution width (RBC) [Ratio] 19.8 % High 11.6-14.6 [facility] Erythrocyte distribution wid th standard deviationOrdered By: Shannan Waldrop on 02-22-2025 Erythrocyte distribution width (RBC) [Ratio] 60.5 fl High 35.1-43.9 [facility] Glomerular filtration rate ( GFR) estimation/1.73 sq m using serum, plasma, or whole bOrdered By: Shannan Waldrop on 02-22-2025 GFR/1.73 sq M.predicted among non-blacks MDRD (S/P/Bld) [Vol rate/Area] 71 mL/min/{1.73_m2} >60 [facility] Comment on above: mL/min/1.73m2 CKD-EP I Creatinine Equation (2020) Hematocrit Auto (Bld) [Volum e fraction]Ordered By: Shannan Waldrop on 02-22-2025 Hematocrit (Bld) [Volume fraction] 33.5 % Low 37-47 [facility] Hemoglobin measurementOrdere d By: Shannan Waldrop on 02-22-2025 Hemoglobin (Bld) [Mass/Vol] 10.3 g/dL Low 12.0-15.0 [facility] Immature granulocytes/100 WB C Auto (Bld)Ordered By: Shannan Waldrop on 02-22-2025 Immature granulocytes/100 WBC (Bld) 0.100 % 0.0-0.9 [facility] Comment on above: IG% - Immature Granu locytes (promyelocytes, myelocytes and metamyelocytes) > 1% indicates that a LEFT SHIFT is Present. Laboratory - Chemistry and C hemistry - challengeOrdered By: Shannan Waldrop on 02-22-2025 AST [Catalytic activity/Vol] 18 U/L <32 [facility] MCV (mean corpuscular volume ) determinationOrdered By: Shannan Waldrop on 02-22-2025 MCV (RBC) [Entitic vol] 84.4 fL 81-99 [facility] Mean corpuscular hemoglobin (MCH) determinationOrdered By: Shannan Waldrop on 02-22-2025 MCH (RBC) [Entitic mass] 25.9 pg Low 27.0-32.0 [facility] Mean corpuscular hemoglobin concentration (MCHC) determinationOrdered By: Shannan Waldrop on 02-22-2025 MCHC (RBC) [Mass/Vol] 30.7 g/dL Low 32-36 [facility] Mean platelet volume determi nationOrdered By: Shannan Waldrop on 02-22-2025 Platelet mean volume (Bld) [Entitic vol] 8.6 fL 6.2-12.0 [facility] Monocyte percentageOrdered B y: Shannan Waldrop on 02-22-2025 Monocytes/100 WBC (Bld) 11.1 % High 0-10 [facility] Neutrophil percentageOrdered By: Shannan Waldrop on 02-22-2025 Neutrophils/100 WBC (Bld) 72.2 % High 47-70 [facility] Nucleated red blood cell per centageOrdered By: Shannan Waldrop on 02-22-2025 Nucleated RBC/100 WBC (Bld) [Ratio] 0 % 0-5 [facility] Oncology Visit Reporton Oncology Visit Report Normal [facility] Phosphoruson 02-22-2025 Phosphate [Mass/Vol] 2.8 mg/dL Normal 2.7-4.5 [facility] Comment on above: Performed By: #### L 501.9520, L100.0100, L500.4050, L501.2300 ####[facility] [address] [place], [address] Platelet countOrdered By: Adriana Waldrop on 02-22-2025 Platelets (Bld) [#/Vol] 306 10*3/uL 150-450 [facility] Potassium measurement (mass/ volume)Ordered By: Shannan Waldrop on 02-22-2025 Potassium (Unsp spec) [Mass/Vol] 4.1 mmol/L 3.3-5.1 [facility] RBC Auto (Bld) [#/Vol]Ordere d By: Shannan Waldrop on 02-22-2025 RBC (Bld) [#/Vol] 3.97 10*6/uL Low 4.2-5.4 [facility] Serum creatinine measurement (mass/volume)Ordered By: Shannan Waldrop on 02-22-2025 Creatinine [Mass/Vol] 0.88 mg/dL 0.70-1.20 [facility] Serum globulin measurementOr dered By: Shannan Waldrop on 02-22-2025 Globulin (S) [Mass/Vol] 2.8 g/dL 2.2-4.2 [facility] Serum glucose measurement (m ass/volume)Ordered By: Shannan Waldrop on 02-22-2025 Glucose [Mass/Vol] 222 mg/dL High 70-99 [facility] Serum or plasma alanine amezquita otransferase (ALT) measurementOrdered By: Shannan Waldrop on 02-22-2025 ALT [Catalytic activity/Vol] 9 U/L <35 [facility] Serum or plasma albumin joaquin urement (mass/volume)Ordered By: Shannan Waldrop on 02-22-2025 Albumin [Mass/Vol] 4.0 g/dL 3.4-4.8 [facility] Serum or plasma albumin/glob ulin mass ratioOrdered By: Shannan Waldrop on 02-22-2025 Albumin/Globulin [Mass ratio] 1.5 {ratio} 0.9-2.4 [facility] Serum or plasma alkaline gumaro sphatase measurementOrdered By: Shannan Waldrop on 02-22-2025 ALP [Catalytic activity/Vol] 83 U/L 35-104 [facility] Serum or plasma calcium joaquin urement (mass/volume)Ordered By: Shannan Waldrop on 02-22-2025 Calcium [Mass/Vol] 8.6 mg/dL 7.6-11.0 [facility] Serum or plasma urea nitroge n measurement (mass/volume)Ordered By: Shannan Waldrop on 02-22-2025 Urea nitrogen [Mass/Vol] 10 mg/dL 4-19 [facility] Sodium levelOrdered By: Spring Waldrop on 02-22-2025 Sodium [Moles/Vol] 138 mmol/L 133-145 [facility] TSH DL <= 0.005 mIU/L QnOrde red By: Shannan Waldrop on 02-22-2025 TSH Qn 34.600 uIU/mL High 0.300-4.200 [facility] Thyroid Stim Hormone (TSH)on 02-22-2025 TSH 34.600 uIU/mL High 0.300-4.200 [facility] Comment on above: Performed By: #### L 501.9520, L100.0100, L500.4050, L501.2300 ####[facility] [address] [place], [place], [address] Total proteinOrdered By: Howard Waldrop on 02-22-2025 Protein [Mass/Vol] 6.8 g/dL 5.9-8.4 [facility] White blood cell (WBC) count Ordered By: Shannan Waldrop on 02-22-2025 WBC (Bld) [#/Vol] 7.8 10*3/uL 4.4-11.0 [facility] CBC W/Diff, Automatedon Absolute Neut Normal 2.0-7.7 [facility] Comment on above: Result Comment: NO S PECIMENS COLLECTED Performed By: #### L 100.0100, L500.4050 ####[facility] [address] [place], [address] HCT Normal 37-47 [facility] Comment on above: Result Comment: NO S PECIMENS COLLECTED Performed By: #### L 100.0100, L500.4050 ####[facility] [address] [place], [address] HGB Normal 12.0-15.0 [facility] Comment on above: Result Comment: NO S PECIMENS COLLECTED Performed By: #### L 100.0100, L500.4050 ####[facility] [address] [place], [address] MCH Normal 27.0-32.0 [facility] Comment on above: Result Comment: NO S PECIMENS COLLECTED Performed By: #### L 100.0100, L500.4050 ####[facility] [address] [place], [address] MCHC Normal 32-36 [facility] Comment on above: Result Comment: NO S PECIMENS COLLECTED Performed By: #### L 100.0100, L500.4050 ####[facility] [address] [place], [address] MCV Normal 81-99 [facility] Comment on above: Result Comment: NO S PECIMENS COLLECTED Performed By: #### L 100.0100, L500.4050 ####[facility] [address] [place], [address] NEUT% Normal 47-70 [facility] Comment on above: Result Comment: NO S PECIMENS COLLECTED Performed By: #### L 100.0100, L500.4050 ####[facility] [address] [place], [address] PLT Normal 150-450 [facility] Comment on above: Result Comment: NO S PECIMENS COLLECTED Performed By: #### L 100.0100, L500.4050 ####[facility] [address] [place], [address] RBC Normal 4.2-5.4 [facility] Comment on above: Result Comment: NO S PECIMENS COLLECTED Performed By: #### L 100.0100, L500.4050 ####[facility] [address] [place], [address] RDW CV Normal 11.6-14.6 [facility] Comment on above: Result Comment: NO S PECIMENS COLLECTED Performed By: #### L 100.0100, L500.4050 ####[facility] [address] [place], [address] RDW SD Normal 35.1-43.9 [facility] Comment on above: Result Comment: NO S PECIMENS COLLECTED Performed By: #### L 100.0100, L500.4050 ####[facility] [address] [place], [address] WBC Normal 4.4-11.0 [facility] Comment on above: Result Comment: NO S PECIMENS COLLECTED Performed By: #### L 100.0100, L500.4050 ####[facility] [address] [place], [address] Comprehensive Metabolic Prof ilon 02-15-2025 ALB Normal 3.4-4.8 [facility] Comment on above: Result Comment: NO S PECIMENS COLLECTED Performed By: #### L 100.0100, L500.4050 ####[facility] [address] [place], [address] ALK PHOS Normal 35-104 [facility] Comment on above: Result Comment: NO S PECIMENS COLLECTED Performed By: #### L 100.0100, L500.4050 ####[facility] [address] [place], [address] ALT Normal <=34 [facility] Comment on above: Result Comment: NO S PECIMENS COLLECTED Performed By: #### L 100.0100, L500.4050 ####[facility] [address] [place], [address] AST Normal <=31 [facility] Comment on above: Result Comment: NO S PECIMENS COLLECTED Performed By: #### L 100.0100, L500.4050 ####[facility] [address] [place], [address] BUN Normal 4-19 [facility] Comment on above: Result Comment: NO S PECIMENS COLLECTED Performed By: #### L 100.0100, L500.4050 ####[facility] [address] [place], [address] BUN/CRE Normal 10-20 [facility] Comment on above: Result Comment: NO S PECIMENS COLLECTED Performed By: #### L 100.0100, L500.4050 ####[facility] [address] [place], [address] Calcium Normal 7.6-11.0 [facility] Comment on above: Result Comment: NO S PECIMENS COLLECTED Performed By: #### L 100.0100, L500.4050 ####[facility] [address] [place], [address] CL Normal 98-108 [facility] Comment on above: Result Comment: NO S PECIMENS COLLECTED Performed By: #### L 100.0100, L500.4050 ####[facility] [address] [place], [address] CO2 Normal 21.0-32.0 [facility] Comment on above: Result Comment: NO S PECIMENS COLLECTED Performed By: #### L 100.0100, L500.4050 ####[facility] [address] [place], [address] CREAT,SERUM Normal 0.70-1.20 [facility] Comment on above: Result Comment: NO S PECIMENS COLLECTED Performed By: #### L 100.0100, L500.4050 ####[facility] [address] [place], [address] eGFR Normal >60 [facility] Comment on above: Result Comment: NO S PECIMENS COLLECTED Performed By: #### L 100.0100, L500.4050 ####[facility] [address] [place], [address] GAP Normal 5-15 [facility] Comment on above: Result Comment: NO S PECIMENS COLLECTED Performed By: #### L 100.0100, L500.4050 ####[facility] [address] [place], [address] GLU Normal 70-99 [facility] Comment on above: Result Comment: NO S PECIMENS COLLECTED Performed By: #### L 100.0100, L500.4050 ####[facility] [address] [place], [address] Potassium Normal 3.3-5.1 [facility] Comment on above: Result Comment: NO S PECIMENS COLLECTED Performed By: #### L 100.0100, L500.4050 ####[facility] [address] [place], [address] T BILI Normal 0.00-1.30 [facility] Comment on above: Result Comment: NO S PECIMENS COLLECTED Performed By: #### L 100.0100, L500.4050 ####[facility] [address] [place], [address] T PROT Normal 5.9-8.4 [facility] Comment on above: Result Comment: NO S PECIMENS COLLECTED Performed By: #### L 100.0100, L500.4050 ####[facility] [address] [place], [address] Comprehensive Metabolic Profil Normal 133-145 [facility] Comment on above: Result Comment: NO S PECIMENS COLLECTED Performed By: #### L 100.0100, L500.4050 ####[facility] [address] [place], [address] Absolute lymphocyte countOrd ered By: Shannan Waldrop on 01-25-2025 Lymphocytes Auto (Unsp spec) [#/Vol] 1.26 10*3/uL 0.83-4.51 [facility] Absolute neutrophil countOrd ered By: [facility] Benjie on 01-25-2025 Neutrophils (Bld) [#/Vol] 4.8 10*3/uL 2.0-7.7 [facility] Anion gap in Serum or Plasma Ordered By: Shannan Waldrop on 01-25-2025 Anion gap [Moles/Vol] 15 mmol/L 5-15 [facility] Automated lymphocyte count a s percentage of total leukocytesOrdered By: [facility] on 01-25-2025 Lymphocytes/100 WBC Auto (Unsp spec) 18.4 % Low 19-41 [facility] BUN/creatinine ratioOrdered By: [facility] Benjie on 01-25-2025 Urea nitrogen/Creatinine [Mass ratio] 11.9 mg/mg 10-20 [facility] Basophil percentageOrdered B y: Shannan Waldrop on 01-25-2025 Basophils/100 WBC (Bld) 0.4 % 0-1 [facility] Bilirubin, totalOrdered By: [facility] on 01-25-2025 Bilirubin [Mass/Vol] 0.29 mg/dL 0.00-1.30 [facility] CBC W/Diff, Automatedon 01-16 Absolute Lymph 1.26 X10 3/uL Normal 0.83-4.51 [facility] Comment on above: Performed By: #### L 501.2300, L100.0100, L501.9520, L500.4050 ####[facility] [address] [place], [address] Absolute Neut 4.8 X10 3/uL Normal 2.0-7.7 [facility] Comment on above: Performed By: #### L 501.2300, L100.0100, L501.9520, L500.4050 ####[facility] [address] [place], [address] Basophils/100 WBC (Bld) 0.4 % Normal 0-1 [facility] Comment on above: Performed By: #### L 501.2300, L100.0100, L501.9520, L500.4050 ####[facility] [address] [place], [address] Eosinophils/100 WBC (Bld) 1.5 % Normal 0-5 [facility] Comment on above: Performed By: #### L 501.2300, L100.0100, L501.9520, L500.4050 ####[facility] [address] [place], [address] Erythrocyte distribution width (RBC) [Ratio] 18.6 % High 11.6-14.6 [facility] Comment on above: Performed By: #### L 501.2300, L100.0100, L501.9520, L500.4050 ####[facility] [address] [place], [address] Hematocrit (Bld) [Volume fraction] 33.3 % Low 37-47 [facility] Comment on above: Performed By: #### L 501.2300, L100.0100, L501.9520, L500.4050 ####[facility] [address] [place], [address] Hemoglobin (Bld) [Mass/Vol] 10.3 g/dL Low 12.0-15.0 [facility] Comment on above: Performed By: #### L 501.2300, L100.0100, L501.9520, L500.4050 ####[facility] [address] [place], [address] IG% 0.600 Normal 0.0-0.9 [facility] Comment on above: Result Comment: IG% - Immature Granulocytes (promyelocytes, myelocytes andmetamyelocytes) > 1% indicates that a LEFT SHIFT is Present. Performed By: #### L 501.2300, L100.0100, L501.9520, L500.4050 ####[facility] [address] [place], [address] Lymphocytes/100 WBC (Bld) 18.4 % Low 19-41 [facility] Comment on above: Performed By: #### L 501.2300, L100.0100, L501.9520, L500.4050 ####[facility] [address] [place], [address] MCH (RBC) [Entitic mass] 25.3 pg Low 27.0-32.0 [facility] Comment on above: Performed By: #### L 501.2300, L100.0100, L501.9520, L500.4050 ####[facility] [address] [place], [address] MCHC (RBC) [Mass/Vol] 30.9 g/dL Low 32-36 [facility] Comment on above: Performed By: #### L 501.2300, L100.0100, L501.9520, L500.4050 ####[facility] [address] [place], [address] MCV (RBC) [Entitic vol] 81.8 fL Normal 81-99 [facility] Comment on above: Performed By: #### L 501.2300, L100.0100, L501.9520, L500.4050 ####[facility] [address] [place], [address] Monocytes/100 WBC (Bld) 9.8 % Normal 0-10 [facility] Comment on above: Performed By: #### L 501.2300, L100.0100, L501.9520, L500.4050 ####[facility] [address] [place], [address] Neutrophils/100 WBC (Bld) 69.3 % Normal 47-70 [facility] Comment on above: Performed By: #### L 501.2300, L100.0100, L501.9520, L500.4050 ####[facility] [address] [place], [address] Nucleated RBC (Bld) [#/Vol] 0 10*3/uL Normal 0-5 [facility] Comment on above: Performed By: #### L 501.2300, L100.0100, L501.9520, L500.4050 ####[facility] [address] [place], [address] Platelet mean volume (Bld) [Entitic vol] 8.4 fL Normal 6.2-12.0 [facility] Comment on above: Performed By: #### L 501.2300, L100.0100, L501.9520, L500.4050 ####[facility] [address] [place], [address] Platelets (Bld) [#/Vol] 288 10*3/uL Normal 150-450 [facility] Comment on above: Performed By: #### L 501.2300, L100.0100, L501.9520, L500.4050 ####[facility] [address] [place], [address] RBC (Bld) [#/Vol] 4.07 10*6/uL Low 4.2-5.4 [facility] Comment on above: Performed By: #### L 501.2300, L100.0100, L501.9520, L500.4050 ####[facility] [address] [place], [address] RDW SD 54.9 fl High 35.1-43.9 [facility] Comment on above: Performed By: #### L 501.2300, L100.0100, L501.9520, L500.4050 ####[facility] [address] [place], [address] WBC (Bld) [#/Vol] 6.9 10*3/uL Normal 4.4-11.0 [facility] Comment on above: Performed By: #### L 501.2300, L100.0100, L501.9520, L500.4050 ####[facility] [address] [place], [address] Carbon dioxide, total [Moles /volume] in Central venous bloodOrdered By: Shannan Waldrop on 01-25-2025 CO2 [Moles/Vol] 21.9 mmol/L 21.0-32.0 [facility] Chloride assayOrdered By: [place] Waldrop on 01-25-2025 Chloride [Moles/Vol] 102 mmol/L 98-108 [facility] Comprehensive Metabolic Prof ilon 01-25-2025 Albumin [Mass/Vol] 4.2 g/dL Normal 3.4-4.8 [facility] Comment on above: Performed By: #### L 501.2300, L100.0100, L501.9520, L500.4050 ####[facility] [address] [place], [address] Albumin/Globulin [Mass ratio] 1.4 {ratio} Normal 0.9-2.4 [facility] Comment on above: Performed By: #### L 501.2300, L100.0100, L501.9520, L500.4050 ####[facility] [address] [place], [address] ALK PHOS 82 U/L Normal 35-104 [facility] Comment on above: Performed By: #### L 501.2300, L100.0100, L501.9520, L500.4050 ####[facility] [address] [place], [address] ALT [Catalytic activity/Vol] 10 U/L Normal <=34 [facility] Comment on above: Performed By: #### L 501.2300, L100.0100, L501.9520, L500.4050 ####[facility] [address] [place] [place], [address] AST [Catalytic activity/Vol] 17 U/L Normal <=31 [facility] Comment on above: Performed By: #### L 501.2300, L100.0100, L501.9520, L500.4050 ####[facility] [address] [place], [address] Bilirubin [Mass/Vol] 0.29 mg/dL Normal 0.00-1.30 [facility] Comment on above: Performed By: #### L 501.2300, L100.0100, L501.9520, L500.4050 ####[facility] [address] [place], [address] BUN/CRE 11.9 RATIO Normal 10-20 [facility] Comment on above: Performed By: #### L 501.2300, L100.0100, L501.9520, L500.4050 ####[facility] [address] [place], [address] Calcium [Mass/Vol] 9.5 mg/dL Normal 7.6-11.0 [facility] Comment on above: Performed By: #### L 501.2300, L100.0100, L501.9520, L500.4050 ####[facility] [address] [place], [address] Chloride [Moles/Vol] 102 mmol/L Normal 98-108 [facility] Comment on above: Performed By: #### L 501.2300, L100.0100, L501.9520, L500.4050 ####[facility] [address] [place], [address] CO2 [Moles/Vol] 21.9 mmol/L Normal 21.0-32.0 [facility] Comment on above: Performed By: #### L 501.2300, L100.0100, L501.9520, L500.4050 ####[facility] [address] [place], [address] Creatinine [Mass/Vol] 0.81 mg/dL Normal 0.70-1.20 [facility] Comment on above: Performed By: #### L 501.2300, L100.0100, L501.9520, L500.4050 ####[facility] [address] [place], [address] ECRCL 64.15 ml/min Normal 50-250 [facility] Comment on above: Performed By: #### L 501.2300, L100.0100, L501.9520, L500.4050 ####[facility] [address] [place], [address] GAP 15 Normal 5-15 [facility] Comment on above: Performed By: #### L 501.2300, L100.0100, L501.9520, L500.4050 ####[facility] [address] [place], [address] GFR/1.73 sq M.predicted among non-blacks MDRD (S/P/Bld) [Vol rate/Area] 79 mL/min/{1.73_m2} Normal >60 [facility] Comment on above: Result Comment: mL/m in/1.73m2 CKD-EPI Creatinine Equation (2020) Performed By: #### L 501.2300, L100.0100, L501.9520, L500.4050 ####[facility] [address] [place], [address] Globulin (S) [Mass/Vol] 2.9 g/dL Normal 2.2-4.2 [facility] Comment on above: Performed By: #### L 501.2300, L100.0100, L501.9520, L500.4050 ####[facility] [address] [place], [address] Glucose [Mass/Vol] 146 mg/dL High 70-99 [facility] Comment on above: Performed By: #### L 501.2300, L100.0100, L501.9520, L500.4050 ####[facility] [address] [place], [address] Potassium [Moles/Vol] 4.2 mmol/L Normal 3.3-5.1 [facility] Comment on above: Performed By: #### L 501.2300, L100.0100, L501.9520, L500.4050 ####[facility] [address] [place], [address] Sodium [Moles/Vol] 138 mmol/L Normal 133-145 [facility] Comment on above: Performed By: #### L 501.2300, L100.0100, L501.9520, L500.4050 ####[facility] [address] [place], [address] T PROT 7.1 g/dL Normal 5.9-8.4 [facility] Comment on above: Performed By: #### L 501.2300, L100.0100, L501.9520, L500.4050 ####[facility] [address] [place], [address] Urea nitrogen [Mass/Vol] 10 mg/dL Normal 4-19 [facility] Comment on above: Performed By: #### L 501.2300, L100.0100, L501.9520, L500.4050 ####[facility] [address] [place], [address] Eosinophil percentageOrdered By: Shannan Waldrop on 01-25-2025 Eosinophils/100 WBC (Bld) 1.5 % 0-5 [facility] Erythrocyte distribution wid th ratioOrdered By: [facility] on 01-25-2025 Erythrocyte distribution width (RBC) [Ratio] 18.6 % High 11.6-14.6 [facility] Erythrocyte distribution wid th standard deviationOrdered By: [facility] on 01-25-2025 Erythrocyte distribution width (RBC) [Ratio] 54.9 fl High 35.1-43.9 [facility] Glomerular filtration rate ( GFR) estimation/1.73 sq m using serum, plasma, or whole bOrdered By: [facility] on 01-25-2025 GFR/1.73 sq M.predicted among non-blacks MDRD (S/P/Bld) [Vol rate/Area] 79 mL/min/{1.73_m2} >60 [facility] Comment on above: mL/min/1.73m2 CKD-EP I Creatinine Equation (2020) Hematocrit Auto (Bld) [Volum e fraction]Ordered By: Shannan Waldrop on 01-25-2025 Hematocrit (Bld) [Volume fraction] 33.3 % Low 37-47 [facility] Hemoglobin measurementOrdere d By: Shannan Waldrop on 01-25-2025 Hemoglobin (Bld) [Mass/Vol] 10.3 g/dL Low 12.0-15.0 [facility] Immature granulocytes/100 WB C Auto (Bld)Ordered By: Shannan Waldrop on 01-25-2025 Immature granulocytes/100 WBC (Bld) 0.600 % 0.0-0.9 [facility] Comment on above: IG% - Immature Granu locytes (promyelocytes, myelocytes and metamyelocytes) > 1% indicates that a LEFT SHIFT is Present. Laboratory - Chemistry and C hemistry - challengeOrdered By: Shannan Waldrop on 01-25-2025 AST [Catalytic activity/Vol] 17 U/L <32 [facility] MCV (mean corpuscular volume ) determinationOrdered By: Shannan Waldrop on 01-25-2025 MCV (RBC) [Entitic vol] 81.8 fL 81-99 [facility] Magnesiumon 01-25-2025 Magnesium [Mass/Vol] 1.4 mg/dL Low 1.5-2.2 [facility] Comment on above: Performed By: #### L 501.5200 ####[facility] [address] [place], [address] Magnesium measurement (mass/ volume)Ordered By: Shannan Waldrop on 01-25-2025 Magnesium (Unsp spec) [Mass/Vol] 1.4 mg/dL Low 1.5-2.2 [facility] Mean corpuscular hemoglobin (MCH) determinationOrdered By: [facility] Benjie on 01-25-2025 MCH (RBC) [Entitic mass] 25.3 pg Low 27.0-32.0 [facility] Mean corpuscular hemoglobin concentration (MCHC) determinationOrdered By: [facility] on 01-25-2025 MCHC (RBC) [Mass/Vol] 30.9 g/dL Low 32-36 [facility] Mean platelet volume determi nationOrdered By: [facility] on 01-25-2025 Platelet mean volume (Bld) [Entitic vol] 8.4 fL 6.2-12.0 [facility] Monocyte percentageOrdered B y: Shannan Waldrop on 01-25-2025 Monocytes/100 WBC (Bld) 9.8 % 0-10 [facility] Neutrophil percentageOrdered By: [facility] on 01-25-2025 Neutrophils/100 WBC (Bld) 69.3 % 47-70 [facility] Nucleated red blood cell per centageOrdered By: [facility] on 01-25-2025 Nucleated RBC/100 WBC (Bld) [Ratio] 0 % 0-5 [facility] Oncology Visit Reporton 01-16 0 Oncology Visit Report Normal [facility] Phosphoruson 01-25-2025 Phosphate [Mass/Vol] 4.2 mg/dL Normal 2.7-4.5 [facility] Comment on above: Performed By: #### L 501.2300, L100.0100, L501.9520, L500.4050 ####[facility] [address] [place], [address] Platelet countOrdered By: Adriana Waldrop on 01-25-2025 Platelets (Bld) [#/Vol] 288 10*3/uL 150-450 [facility] Potassium measurement (mass/ volume)Ordered By: Shannan Waldrop on 01-25-2025 Potassium (Unsp spec) [Mass/Vol] 4.2 mmol/L 3.3-5.1 [facility] RBC Auto (Bld) [#/Vol]Ordere d By: Shannan Waldrop on 01-25-2025 RBC (Bld) [#/Vol] 4.07 10*6/uL Low 4.2-5.4 [facility] Serum creatinine measurement (mass/volume)Ordered By: Shannan Waldrop on 01-25-2025 Creatinine [Mass/Vol] 0.81 mg/dL 0.70-1.20 [facility] Serum globulin measurementOr dered By: Shannan Waldrop on 01-25-2025 Globulin (S) [Mass/Vol] 2.9 g/dL 2.2-4.2 [facility] Serum glucose measurement (m ass/volume)Ordered By: Shannan Waldrop on 01-25-2025 Glucose [Mass/Vol] 146 mg/dL High 70-99 [facility] Serum or plasma alanine amezquita otransferase (ALT) measurementOrdered By: Shannan Waldrop on 01-25-2025 ALT [Catalytic activity/Vol] 10 U/L <35 [facility] Serum or plasma albumin joaquin urement (mass/volume)Ordered By: Shannan Waldrop on 01-25-2025 Albumin [Mass/Vol] 4.2 g/dL 3.4-4.8 [facility] Serum or plasma albumin/glob ulin mass ratioOrdered By: Shannan Waldrop on 01-25-2025 Albumin/Globulin [Mass ratio] 1.4 {ratio} 0.9-2.4 [facility] Serum or plasma alkaline gumaro sphatase measurementOrdered By: Shannan Waldrop on 01-25-2025 ALP [Catalytic activity/Vol] 82 U/L 35-104 [facility] Serum or plasma calcium joaquin urement (mass/volume)Ordered By: Shannan Waldrop on 01-25-2025 Calcium [Mass/Vol] 9.5 mg/dL 7.6-11.0 [facility] Serum or plasma urea nitroge n measurement (mass/volume)Ordered By: Shannan Waldrop on 01-25-2025 Urea nitrogen [Mass/Vol] 10 mg/dL 4-19 [facility] Sodium levelOrdered By: Spring Waldrop on 01-25-2025 Sodium [Moles/Vol] 138 mmol/L 133-145 [facility] TSH DL <= 0.005 mIU/L QnOrde red By: Shannan Waldrop on 01-25-2025 TSH Qn 53.600 uIU/mL High 0.300-4.200 [facility] Thyroid Stim Hormone (TSH)on 01-25-2025 TSH 53.600 uIU/mL High 0.300-4.200 [facility] Comment on above: Performed By: #### L 501.2300, L100.0100, L501.9520, L500.4050 ####[facility] [address] [place], [id number] Total proteinOrdered By: Howard Waldrop on 01-25-2025 Protein [Mass/Vol] 7.1 g/dL 5.9-8.4 [facility] White blood cell (WBC) count Ordered By: Shannan Waldrop on 01-25-2025 WBC (Bld) [#/Vol] 6.9 10*3/uL 4.4-11.0 [facility] Absolute lymphocyte countOrd ered By: Sharif Christianson on 01-20-2025 Lymphocytes Auto (Unsp spec) [#/Vol] 1.00 10*3/uL 0.83-4.51 [facility] Absolute neutrophil countOrd ered By: Sharif Christianson on 01-20-2025 Neutrophils (Bld) [#/Vol] 4.7 10*3/uL 2.0-7.7 [facility] Anion gap in Serum or Plasma Ordered By: Sharif Christianson on 01-20-2025 Anion gap [Moles/Vol] 14 mmol/L 5-15 [facility] Automated lymphocyte count a s percentage of total leukocytesOrdered By: Sharif Christianson on 01-20-2025 Lymphocytes/100 WBC Auto (Unsp spec) 15.0 % Low 19- [facility] BUN/creatinine ratioOrdered By: Sharif Christianson on 01-20-2025 Urea nitrogen/Creatinine [Mass ratio] 13.6 mg/mg 10- [facility] Basophil percentageOrdered B y: Sharif Christianson on 01-20-2025 Basophils/100 WBC (Bld) 0.6 % 0-1 [facility] Bilirubin, totalOrdered By: Sharif Christianson on 01-20-2025 Bilirubin [Mass/Vol] 0.32 mg/dL 0.00-1.30 [facility] CBC W/Diff, Automatedon Absolute Lymph 1.00 X10 3/uL Normal 0.83-4.51 [facility] Comment on above: Order Comment: Order Date: 01/20/25Order Info: [id number] - CBCD Performed By: #### L 500.4050, L501.9985, L100.0100, L506.0400, L500.4100 ####[facility] [address] [place], [place], [id number] Absolute Neut 4.7 X10 3/uL Normal 2.0-7.7 [facility] Comment on above: Order Comment: Order Date: 01/20/25Order Info: [id number] - CBCD Performed By: #### L 500.4050, L501.9985, L100.0100, L506.0400, L500.4100 ####[facility] [address] [place], [address] Basophils/100 WBC (Bld) 0.6 % Normal 0-1 [facility] Comment on above: Order Comment: Order Date: 01/20/25Order Info: [id number] - CBCD Performed By: #### L 500.4050, L501.9985, L100.0100, L506.0400, L500.4100 ####[facility] [address] [place], [address] Eosinophils/100 WBC (Bld) 1.3 % Normal 0-5 [facility] Comment on above: Order Comment: Order Date: 01/20/25Order Info: [id number] - CBCD Performed By: #### L 500.4050, L501.9985, L100.0100, L506.0400, L500.4100 ####[facility] [address] [place], [address] Erythrocyte distribution width (RBC) [Ratio] 18.6 % High 11.6-14.6 [facility] Comment on above: Order Comment: Order Date: 01/20/25Order Info: [id number] - CBCD Performed By: #### L 500.4050, L501.9985, L100.0100, L506.0400, L500.4100 ####[facility] [address] [place], [address] Hematocrit (Bld) [Volume fraction] 35.1 % Low 37-47 [facility] Comment on above: Order Comment: Order Date: 01/20/25Order Info: [id number] - CBCD Performed By: #### L 500.4050, L501.9985, L100.0100, L506.0400, L500.4100 ####[facility] [address] [place], [address] Hemoglobin (Bld) [Mass/Vol] 10.9 g/dL Low 12.0-15.0 [facility] Comment on above: Order Comment: Order Date: 01/20/25Order Info: [id number] - CBCD Performed By: #### L 500.4050, L501.9985, L100.0100, L506.0400, L500.4100 ####[facility] [address] [place], [address] IG% 0.400 Normal 0.0-0.9 [facility] Comment on above: Order Comment: Order Date: 01/20/25Order Info: [id number] - CBCD Result Comment: IG% - Immature Granulocytes (promyelocytes, myelocytes andmetamyelocytes) > 1% indicates that a LEFT SHIFT is Present. Performed By: #### L 500.4050, L501.9985, L100.0100, L506.0400, L500.4100 ####[facility] [address] [place], [address] Lymphocytes/100 WBC (Bld) 15.0 % Low 19-41 [facility] Comment on above: Order Comment: Order Date: 01/20/25Order Info: [id number] - CBCD Performed By: #### L 500.4050, L501.9985, L100.0100, L506.0400, L500.4100 ####[facility] [address] [place], [address] MCH (RBC) [Entitic mass] 25.7 pg Low 27.0-32.0 [facility] Comment on above: Order Comment: Order Date: 01/20/25Order Info: [id number] - CBCD Performed By: #### L 500.4050, L501.9985, L100.0100, L506.0400, L500.4100 ####[facility] [address] [place], [address] MCHC (RBC) [Mass/Vol] 31.1 g/dL Low 32-36 [facility] Comment on above: Order Comment: Order Date: 01/20/25Order Info: [id number] - CBCD Performed By: #### L 500.4050, L501.9985, L100.0100, L506.0400, L500.4100 ####[facility] [address] [place], [address] MCV (RBC) [Entitic vol] 82.8 fL Normal 81-99 [facility] Comment on above: Order Comment: Order Date: 01/20/25Order Info: [id number] - CBCD Performed By: #### L 500.4050, L501.9985, L100.0100, L506.0400, L500.4100 ####[facility] [address] [place], [address] Monocytes/100 WBC (Bld) 11.8 % High 0-10 [facility] Comment on above: Order Comment: Order Date: 01/20/25Order Info: [id number] - CBCD Performed By: #### L 500.4050, L501.9985, L100.0100, L506.0400, L500.4100 ####[facility] [address] [place], [address] Neutrophils/100 WBC (Bld) 70.9 % High 47-70 [facility] Comment on above: Order Comment: Order Date: 01/20/25Order Info: [id number] - CBCD Performed By: #### L 500.4050, L501.9985, L100.0100, L506.0400, L500.4100 ####[facility] [address] [place], [address] Nucleated RBC (Bld) [#/Vol] 0 10*3/uL Normal 0-5 [facility] Comment on above: Order Comment: Order Date: 01/20/25Order Info: [id number] - CBCD Performed By: #### L 500.4050, L501.9985, L100.0100, L506.0400, L500.4100 ####[facility] [address] [place], [address] Platelet mean volume (Bld) [Entitic vol] 9.0 fL Normal 6.2-12.0 [facility] Comment on above: Order Comment: Order Date: 01/20/25Order Info: [id number] - CBCD Performed By: #### L 500.4050, L501.9985, L100.0100, L506.0400, L500.4100 ####[facility] [address] [place], [address] Platelets (Bld) [#/Vol] 334 10*3/uL Normal 150-450 [facility] Comment on above: Order Comment: Order Date: 01/20/25Order Info: [id number] - CBCD Performed By: #### L 500.4050, L501.9985, L100.0100, L506.0400, L500.4100 ####[facility] [address] [place], [address] RBC (Bld) [#/Vol] 4.24 10*6/uL Normal 4.2-5.4 [facility] Comment on above: Order Comment: Order Date: 01/20/25Order Info: [id number] - CBCD Performed By: #### L 500.4050, L501.9985, L100.0100, L506.0400, L500.4100 ####[facility] [address] [place], [address] RDW SD 54.9 fl High 35.1-43.9 [facility] Comment on above: Order Comment: Order Date: 01/20/25Order Info: [id number] - CBCD Performed By: #### L 500.4050, L501.9985, L100.0100, L506.0400, L500.4100 ####[facility] [address] [place], [address] WBC (Bld) [#/Vol] 6.7 10*3/uL Normal 4.4-11.0 [facility] Comment on above: Order Comment: Order Date: 01/20/25Order Info: [id number] - CBCD Performed By: #### L 500.4050, L501.9985, L100.0100, L506.0400, L500.4100 ####[facility] [address] [place], [address] Calculated very low density lipoprotein (VLDL) cholesterol measurementOrdered By: Sharif Christianson on 01-20-2025 Calculated very low density lipoprotein (VLDL) cholesterol measurement 27 mg/dL 5-40 [facility] Carbon dioxide, total [Moles /volume] in Central venous bloodOrdered By: Sharif Christianson on 01-20-2025 CO2 [Moles/Vol] 22.5 mmol/L 21.0-32.0 [facility] Chloride assayOrdered By: Yessenia Christianson on 01-20-2025 Chloride [Moles/Vol] 101 mmol/L 98-108 [facility] Comprehensive Metabolic Prof ilon 01-20-2025 Albumin [Mass/Vol] 4.1 g/dL Normal 3.4-4.8 [facility] Comment on above: Order Comment: Order Date: 01/20/25Order Info: [id number] - CMPOrder Info: [id number] - LIPIDOrder Info: [id number] - T4F Performed By: #### L 500.4050, L501.9985, L100.0100, L506.0400, L500.4100 ####[facility] [address] [place], [address] Albumin/Globulin [Mass ratio] 1.3 {ratio} Normal 0.9-2.4 [facility] Comment on above: Order Comment: Order Date: 01/20/25Order Info: [id number] - CMPOrder Info: [id number] - LIPIDOrder Info: [id number] - T4F Performed By: #### L 500.4050, L501.9985, L100.0100, L506.0400, L500.4100 ####[facility] [address], [address] ALK PHOS 82 U/L Normal 35-104 [facility] Comment on above: Order Comment: Order Date: 01/20/25Order Info: [id number] - CMPOrder Info: [id number] - LIPIDOrder Info: [id number] - T4F Performed By: #### L 500.4050, L501.9985, L100.0100, L506.0400, L500.4100 ####[facility] [address], [address] ALT [Catalytic activity/Vol] 9 U/L Normal <=34 [facility] Comment on above: Order Comment: Order Date: 01/20/25Order Info: [id number] - CMPOrder Info: [id number] - LIPIDOrder Info: [id number] - T4F Performed By: #### L 500.4050, L501.9985, L100.0100, L506.0400, L500.4100 ####[facility] [address], [address] AST [Catalytic activity/Vol] 16 U/L Normal <=31 [facility] Comment on above: Order Comment: Order Date: 01/20/25Order Info: [id number] - CMPOrder Info: [id number] - LIPIDOrder Info: [id number] - T4F Performed By: #### L 500.4050, L501.9985, L100.0100, L506.0400, L500.4100 ####[facility] [address], [address] Bilirubin [Mass/Vol] 0.32 mg/dL Normal 0.00-1.30 [facility] Comment on above: Order Comment: Order Date: 01/20/25Order Info: [id number] - CMPOrder Info: [id number] - LIPIDOrder Info: [id number] - T4F Performed By: #### L 500.4050, L501.9985, L100.0100, L506.0400, L500.4100 ####[facility] [address] [place], [address] BUN/CRE 13.6 RATIO Normal 10-20 [facility] Comment on above: Order Comment: Order Date: 01/20/25Order Info: [id number] - CMPOrder Info: [id number] - LIPIDOrder Info: [id number] - T4F Performed By: #### L 500.4050, L501.9985, L100.0100, L506.0400, L500.4100 ####[facility] [address] [place], [address] Calcium [Mass/Vol] 9.4 mg/dL Normal 7.6-11.0 [facility] Comment on above: Order Comment: Order Date: 01/20/25Order Info: [id number] - CMPOrder Info: [id number] - LIPIDOrder Info: [id number] - T4F Performed By: #### L 500.4050, L501.9985, L100.0100, L506.0400, L500.4100 ####[facility] [address] [place], [address] Chloride [Moles/Vol] 101 mmol/L Normal 98-108 [facility] Comment on above: Order Comment: Order Date: 01/20/25Order Info: [id number] - CMPOrder Info: [id number] - LIPIDOrder Info: [id number] - T4F Performed By: #### L 500.4050, L501.9985, L100.0100, L506.0400, L500.4100 ####[facility] [address] [place], [address] CO2 [Moles/Vol] 22.5 mmol/L Normal 21.0-32.0 [facility] Comment on above: Order Comment: Order Date: 01/20/25Order Info: [id number] - CMPOrder Info: [id number] - LIPIDOrder Info: [id number] - T4F Performed By: #### L 500.4050, L501.9985, L100.0100, L506.0400, L500.4100 ####[facility] [address] [place], [address] Creatinine [Mass/Vol] 0.80 mg/dL Normal 0.70-1.20 [facility] Comment on above: Order Comment: Order Date: 01/20/25Order Info: [id number] - CMPOrder Info: [id number] - LIPIDOrder Info: [id number] - T4F Performed By: #### L 500.4050, L501.9985, L100.0100, L506.0400, L500.4100 ####[facility] [address] [place], [place], [address] GAP 14 Normal 5-15 [facility] Comment on above: Order Comment: Order Date: 01/20/25Order Info: [id number] - CMPOrder Info: [id number] - LIPIDOrder Info: [id number] - T4F Performed By: #### L 500.4050, L501.9985, L100.0100, L506.0400, L500.4100 ####[facility] [address] [place], [address] GFR/1.73 sq M.predicted among non-blacks MDRD (S/P/Bld) [Vol rate/Area] 79 mL/min/{1.73_m2} Normal >60 [facility] Comment on above: Order Comment: Order Date: 01/20/25Order Info: [id number] - CMPOrder Info: [id number] - LIPIDOrder Info: [id number] - T4F Result Comment: mL/m in/1.73m2 CKD-EPI Creatinine Equation (2020) Performed By: #### L 500.4050, L501.9985, L100.0100, L506.0400, L500.4100 ####[facility] [address] [place], [address] Globulin (S) [Mass/Vol] 3.2 g/dL Normal 2.2-4.2 [facility] Comment on above: Order Comment: Order Date: 01/20/25Order Info: [id number] - CMPOrder Info: [id number] - LIPIDOrder Info: [id number] - T4F Performed By: #### L 500.4050, L501.9985, L100.0100, L506.0400, L500.4100 ####[facility] [address] [place], [address] Glucose [Mass/Vol] 162 mg/dL High 70-99 [facility] Comment on above: Order Comment: Order Date: 01/20/25Order Info: [id number] - CMPOrder Info: [id number] - LIPIDOrder Info: [id number] - T4F Performed By: #### L 500.4050, L501.9985, L100.0100, L506.0400, L500.4100 ####[facility] [address] [place], [address] Potassium [Moles/Vol] 3.9 mmol/L Normal 3.3-5.1 [facility] Comment on above: Order Comment: Order Date: 01/20/25Order Info: [id number] - CMPOrder Info: [id number] - LIPIDOrder Info: [id number] - T4F Performed By: #### L 500.4050, L501.9985, L100.0100, L506.0400, L500.4100 ####[facility] [address] [place], [address] Sodium [Moles/Vol] 138 mmol/L Normal 133-145 [facility] Comment on above: Order Comment: Order Date: 01/20/25Order Info: [id number] - CMPOrder Info: [id number] - LIPIDOrder Info: [id number] - T4F Performed By: #### L 500.4050, L501.9985, L100.0100, L506.0400, L500.4100 ####[facility] [address] [place], [place], [id number] T PROT 7.3 g/dL Normal 5.9-8.4 [facility] Comment on above: Order Comment: Order Date: 01/20/25Order Info: [id number] - CMPOrder Info: [id number] - LIPIDOrder Info: [id number] - T4F Performed By: #### L 500.4050, L501.9985, L100.0100, L506.0400, L500.4100 ####[facility] [address] [place], [place], [address] Urea nitrogen [Mass/Vol] 11 mg/dL Normal 4-19 [facility] Comment on above: Order Comment: Order Date: 01/20/25Order Info: [id number] - CMPOrder Info: [id number] - LIPIDOrder Info: [id number] - T4F Performed By: #### L 500.4050, L501.9985, L100.0100, L506.0400, L500.4100 ####[facility] [address] [place], [place], [id number] Eosinophil percentageOrdered By: Sharif Christianson on 01-20-2025 Eosinophils/100 WBC (Bld) 1.3 % 0-5 [facility] Erythrocyte distribution wid th ratioOrdered By: Sharif Christianson on 01-20-2025 Erythrocyte distribution width (RBC) [Ratio] 18.6 % High 11.6-14.6 [facility] Erythrocyte distribution wid th standard deviationOrdered By: Sharif Christianson on 01-20-2025 Erythrocyte distribution width (RBC) [Ratio] 54.9 fl High 35.1-43.9 [facility] Glomerular filtration rate ( GFR) estimation/1.73 sq m using serum, plasma, or whole bOrdered By: Sharif Christianson on 01-20-2025 GFR/1.73 sq M.predicted among non-blacks MDRD (S/P/Bld) [Vol rate/Area] 79 mL/min/{1.73_m2} >60 [facility] Comment on above: mL/min/1.73m2 CKD-EP I Creatinine Equation (2020) Hematocrit Auto (Bld) [Volum e fraction]Ordered By: Sharif Christianson on 01-20-2025 Hematocrit (Bld) [Volume fraction] 35.1 % Low 37-47 [facility] Hemoglobin A1con 01-20-2025 HbA1c (Bld) [Mass fraction] 7.6 % High <=5.6 [facility] Comment on above: Order Comment: Order Date: 01/20/25Order Info: [id number] - A1C Result Comment: Norm al < 5.7 % Prediabetic 5.7 - 6.4 % Diabetic >or= 6.5 % Please note range changes. Performed By: #### L 500.4050, L501.9985, L100.0100, L506.0400, L500.4100 ####[facility] [address] [place], [address] Hemoglobin A1c percentageOrd ered By: Sharif Christianson on 01-20-2025 HbA1c (Bld) [Mass fraction] 7.6 % High <5.7 [facility] Comment on above: Normal < 5.7 % Predi abetic 5.7 - 6.4 % Diabetic >or= 6.5 % Please note range changes. Hemoglobin measurementOrdere d By: Sharif Christianson on 01-20-2025 Hemoglobin (Bld) [Mass/Vol] 10.9 g/dL Low 12.0-15.0 [facility] Immature granulocytes/100 WB C Auto (Bld)Ordered By: Sharif Christianson on 01-20-2025 Immature granulocytes/100 WBC (Bld) 0.400 % 0.0-0.9 [facility] Comment on above: IG% - Immature Granu locytes (promyelocytes, myelocytes and metamyelocytes) > 1% indicates that a LEFT SHIFT is Present. LDL calc ser/plasOrdered By: Sharif Christianson on 01-20-2025 Cholesterol in LDL [Mass/Vol] 48 mg/dL [facility] Comment on above: Hlietxmqei=863-985 m g/dL & Higher Ymku=936 mg/dL or greater Laboratory - Chemistry and C hemistry - challengeOrdered By: Sharif Christianson on 01-20-2025 AST [Catalytic activity/Vol] 16 U/L <32 [facility] Lipid Profileon 01-20-2025 CHOL:HDL 2.40 Normal [facility] Comment on above: Order Comment: Order Date: 01/20/25Order Info: [id number] - CMPOrder Info: [id number] - LIPIDOrder Info: [id number] - T4F Performed By: #### L 500.4050, L501.9985, L100.0100, L506.0400, L500.4100 ####[facility] [address] [place], [place], [id number] Cholesterol [Mass/Vol] 129 mg/dL Normal <=200 [facility] Comment on above: Order Comment: Order Date: 01/20/25Order Info: [id number] - CMPOrder Info: [id number] - LIPIDOrder Info: [id number] Result Comment: Chol esterol level, Desirable <200 mg/dLBorderline high cholesterol 200-239 mg/dLHigh cholesterol >=240 mg/dLRecommendations of the NCEP Adult Treatment Panel for thefollowing risk-cutoff thresholds for the [place] Americanpulation. Performed By: #### L 500.4050, L501.9985, L100.0100, L506.0400, L500.4100 ####[facility] [address] [place], [place], [address] Cholesterol in HDL [Mass/Vol] 54 mg/dL Normal [facility] Comment on above: Order Comment: Order Date: 01/20/25Order Info: [id number] - CMPOrder Info: [id number] - LIPIDOrder Info: [id number] - T4F Result Comment: Ledy onal Cholesterol Education Program (NCEP) guidelines:<40 mg/dL: Low HDL-cholesterol (major risk factor for CHD)>= 60 mg/dL: High HDL-cholesterol (negative risk factor forCHD)HDL-cholesterol is affected by a number of factors, e.g.smoking, exercise, hormones, sex and age. Performed By: #### L 500.4050, L501.9985, L100.0100, L506.0400, L500.4100 ####[facility] [address] [place], [address] Cholesterol in LDL [Mass/Vol] 48 mg/dL Normal [facility] Comment on above: Order Comment: Order Date: 01/20/25Order Info: [id number] - CMPOrder Info: [id number] - LIPIDOrder Info: [id number] Result Comment: Bord nwtqrx=544-169 mg/dL Higher Tohu=461 mg/dL or greater Performed By: #### L 500.4050, L501.9985, L100.0100, L506.0400, L500.4100 ####[facility] [address] [place], [address] Cholesterol in VLDL [Mass/Vol] 27 mg/dL Normal 5-40 [facility] Comment on above: Order Comment: Order Date: 01/20/25Order Info: [id number] - CMPOrder Info: [id number] - LIPIDOrder Info: [id number] Performed By: #### L 500.4050, L501.9985, L100.0100, L506.0400, L500.4100 ####[facility] [address] [place], [address] Triglyceride [Mass/Vol] 137 mg/dL Normal [facility] Comment on above: Order Comment: Order Date: 01/20/25Order Info: [id number] - CMPOrder Info: [id number] - LIPIDOrder Info: [id number] Result Comment: The drugs N-Acetylcysteine and Metamizole may falselydepress this assay.Normal range: <150 mg/dLBorderline High: 150-199 mg/dLHigh: 200-499 mg/dLVery High: >500 mg/dL Performed By: #### L 500.4050, L501.9985, L100.0100, L506.0400, L500.4100 ####[facility] [address] [place], [address] MCV (mean corpuscular volume ) determinationOrdered By: Sharif Christianson on 01-20-2025 MCV (RBC) [Entitic vol] 82.8 fL 81-99 [facility] Mean corpuscular hemoglobin (MCH) determinationOrdered By: Sharif Christianson on 01-20-2025 MCH (RBC) [Entitic mass] 25.7 pg Low 27.0-32.0 [facility] Mean corpuscular hemoglobin concentration (MCHC) determinationOrdered By: Sharif Christianson on 01-20-2025 MCHC (RBC) [Mass/Vol] 31.1 g/dL Low 32-36 [facility] Mean platelet volume determi nationOrdered By: Sharif Christianson on 01-20-2025 Platelet mean volume (Bld) [Entitic vol] 9.0 fL 6.2-12.0 [facility] Monocyte percentageOrdered B y: Sharif Christianson on 01-20-2025 Monocytes/100 WBC (Bld) 11.8 % High 0-10 [facility] Neutrophil percentageOrdered By: Sharif Christianson on 01-20-2025 Neutrophils/100 WBC (Bld) 70.9 % High 47-70 [facility] Nucleated red blood cell per centageOrdered By: Sharif Christianson on 01-20-2025 Nucleated RBC/100 WBC (Bld) [Ratio] 0 % 0-5 [facility] Platelet countOrdered By: Yessenia Christianson on 01-20-2025 Platelets (Bld) [#/Vol] 334 10*3/uL 150-450 [facility] Potassium measurement (mass/ volume)Ordered By: Sharif Christianson on 01-20-2025 Potassium (Unsp spec) [Mass/Vol] 3.9 mmol/L 3.3-5.1 [facility] RBC Auto (Bld) [#/Vol]Ordere d By: Sharif Christianson on 01-20-2025 RBC (Bld) [#/Vol] 4.24 10*6/uL 4.2-5.4 [facility] Screening total cholesterol/ high density lipoprotein (HDL) cholesterol ratioOrdered By: Sharif Christianson on 01-20-2025 Cholesterol.total/Cholest irasema in HDL [Mass ratio] 2.40 {ratio} [facility] Serum creatinine measurement (mass/volume)Ordered By: Sharif Christianson on 01-20-2025 Creatinine [Mass/Vol] 0.80 mg/dL 0.70-1.20 [facility] Serum globulin measurementOr dered By: Sharif Christianson on 01-20-2025 Globulin (S) [Mass/Vol] 3.2 g/dL 2.2-4.2 [facility] Serum glucose measurement (m ass/volume)Ordered By: Sharif Christianson on 01-20-2025 Glucose [Mass/Vol] 162 mg/dL High 70-99 [facility] Serum or plasma alanine amezquita otransferase (ALT) measurementOrdered By: Sharif Christianson on 01-20-2025 ALT [Catalytic activity/Vol] 9 U/L <35 [facility] Serum or plasma albumin joaquin urement (mass/volume)Ordered By: Sharif Christianson on 01-20-2025 Albumin [Mass/Vol] 4.1 g/dL 3.4-4.8 [facility] Serum or plasma albumin/glob ulin mass ratioOrdered By: Sharif Christianson on 01-20-2025 Albumin/Globulin [Mass ratio] 1.3 {ratio} 0.9-2.4 [facility] Serum or plasma alkaline gumaro sphatase measurementOrdered By: Sharif Christianson on 01-20-2025 ALP [Catalytic activity/Vol] 82 U/L 35-104 [facility] Serum or plasma calcium joaquin urement (mass/volume)Ordered By: Sharif Christianson on 01-20-2025 Calcium [Mass/Vol] 9.4 mg/dL 7.6-11.0 [facility] Serum or plasma cholesterol in HDL measurement (mass/volume)Ordered By: Sharif Christianson on 01-20-2025 Cholesterol in HDL [Mass/Vol] 54 mg/dL >40 [facility] Comment on above: National Cholesterol Education Program (NCEP) guidelines:<40 mg/dL: Low HDL-cholesterol (major risk factor for CHD)>= 60 mg/dL: High HDL-cholesterol (negative risk factor for CHD)HDL-cholesterol is affected by a number of factors, e.g. smoking, exercise, hormones, sex and age. Serum or plasma cholesterol measurement (mass/volume)Ordered By: Sharif Christianson on 01-20-2025 Cholesterol [Mass/Vol] 129 mg/dL <201 [facility] Comment on above: Cholesterol level, D esirable <200 mg/dLBorderline high cholesterol 200-239 mg/dLHigh cholesterol >=240 mg/dLRecommendations of the NCEP Adult Treatment Panel for the following risk-cutoff thresholds for the [place] population. Serum or plasma urea nitroge n measurement (mass/volume)Ordered By: Sharif Christianson on 01-20-2025 Urea nitrogen [Mass/Vol] 11 mg/dL 4-19 [facility] Sodium levelOrdered By: Sharif Chrsitianson on 01-20-2025 Sodium [Moles/Vol] 138 mmol/L 133-145 [facility] T4 Free Directon 01-20-2025 T4 FREE DIRECT 0.40 ng/dL Low 0.76-1.46 [facility] Comment on above: Order Comment: Order Date: 01/20/25Order Info: [id number] - CMPOrder Info: [id number] - LIPIDOrder Info: [id number] - T4F Performed By: #### L 500.4050, L501.9985, L100.0100, L506.0400, L500.4100 ####[facility] [address] [place], [address] T4 freeOrdered By: Sharif moreira on 01-20-2025 Free T4 [Mass/Vol] 0.40 ng/dL Low 0.76-1.46 [facility] Total proteinOrdered By: Link Christianson on 01-20-2025 Protein [Mass/Vol] 7.3 g/dL 5.9-8.4 [facility] Triglycerides measurementOrd ered By: Sharif Christianson on 01-20-2025 Triglyceride [Mass/Vol] 137 mg/dL <199 [facility] Comment on above: The drugs N-Acetylcy steine and Metamizole may falsely depress this assay. Normal range: <150 mg/dLBorderline High: 150-199 mg/dLHigh: 200-499 mg/dLVery High: >500 mg/dL White blood cell (WBC) count Ordered By: Sharif Christianson on 01-20-2025 WBC (Bld) [#/Vol] 6.7 10*3/uL 4.4-11.0 [facility] Absolute lymphocyte countOrd ered By: [facility] 01-04-2025 Lymphocytes Auto (Unsp spec) [#/Vol] 1.07 10*3/uL 0.83-4.51 [facility] Absolute neutrophil countOrd ered By: [facility] Benjie on 01-04-2025 Neutrophils (Bld) [#/Vol] 5.3 10*3/uL 2.0-7.7 [facility] Anion gap in Serum or Plasma Ordered By: [facility] on 01-04-2025 Anion gap [Moles/Vol] 14 mmol/L 12-30 [facility] Automated lymphocyte count a s percentage of total leukocytesOrdered By: [facility] Benjie on 01-04-2025 Lymphocytes/100 WBC Auto (Unsp spec) 15.0 % Low - [facility] BUN/creatinine ratioOrdered By: [facility] on 01-04-2025 Urea nitrogen/Creatinine [Mass ratio] 13.9 mg/mg 06-06 [facility] Basophil percentageOrdered B y: Shannan Waldrop on 01-04-2025 Basophils/100 WBC (Bld) 0.6 % 0-1 [facility] Bilirubin, totalOrdered By: [facility] Benjie on 01-04-2025 Bilirubin [Mass/Vol] 0.26 mg/dL 0.00-1.30 [facility] CBC W/Diff, Automatedon 12-17 Absolute Lymph 1.07 X10 3/uL Normal 0.83-4.51 [facility] Comment on above: Performed By: #### L 501.9520, L500.4050, L501.2300, L100.0100 ####[facility] [address] [place], [address] Absolute Neut 5.3 X10 3/uL Normal 2.0-7.7 [facility] Comment on above: Performed By: #### L 501.9520, L500.4050, L501.2300, L100.0100 ####[facility] [address] [place], [address] Basophils/100 WBC (Bld) 0.6 % Normal 0-1 [facility] Comment on above: Performed By: #### L 501.9520, L500.4050, L501.2300, L100.0100 ####[facility] [address] [place], [address] Eosinophils/100 WBC (Bld) 1.7 % Normal 0-5 [facility] Comment on above: Performed By: #### L 501.9520, L500.4050, L501.2300, L100.0100 ####[facility] [address] [place], [address] Erythrocyte distribution width (RBC) [Ratio] 17.7 % High 11.6-14.6 [facility] Comment on above: Performed By: #### L 501.9520, L500.4050, L501.2300, L100.0100 ####[facility] [address] [place], [address] Hematocrit (Bld) [Volume fraction] 32.1 % Low 37-47 [facility] Comment on above: Performed By: #### L 501.9520, L500.4050, L501.2300, L100.0100 ####[facility] [address] [place], [address] Hemoglobin (Bld) [Mass/Vol] 10.3 g/dL Low 12.0-15.0 [facility] Comment on above: Performed By: #### L 501.9520, L500.4050, L501.2300, L100.0100 ####[facility] [address] [place], [address] IG% 0.400 Normal 0.0-0.9 [facility] Comment on above: Result Comment: IG% - Immature Granulocytes (promyelocytes, myelocytes andmetamyelocytes) > 1% indicates that a LEFT SHIFT is Present. Performed By: #### L 501.9520, L500.4050, L501.2300, L100.0100 ####[facility] [address] [place], [address] Lymphocytes/100 WBC (Bld) 15.0 % Low 19-41 [facility] Comment on above: Performed By: #### L 501.9520, L500.4050, L501.2300, L100.0100 ####[facility] [address] [place], [address] MCH (RBC) [Entitic mass] 26.1 pg Low 27.0-32.0 [facility] Comment on above: Performed By: #### L 501.9520, L500.4050, L501.2300, L100.0100 ####[facility] [address] [place], [address] MCHC (RBC) [Mass/Vol] 32.1 g/dL Normal 32-36 [facility] Comment on above: Performed By: #### L 501.9520, L500.4050, L501.2300, L100.0100 ####[facility] [address] [place], [address] MCV (RBC) [Entitic vol] 81.3 fL Normal 81-99 [facility] Comment on above: Performed By: #### L 501.9520, L500.4050, L501.2300, L100.0100 ####[facility] [address] [place], [address] Monocytes/100 WBC (Bld) 8.4 % Normal 0-10 [facility] Comment on above: Performed By: #### L 501.9520, L500.4050, L501.2300, L100.0100 ####[facility] [address] [place], [address] Neutrophils/100 WBC (Bld) 73.9 % High 47-70 [facility] Comment on above: Performed By: #### L 501.9520, L500.4050, L501.2300, L100.0100 ####[facility] [address] [place], [address] Nucleated RBC (Bld) [#/Vol] 0 10*3/uL Normal 0-5 [facility] Comment on above: Performed By: #### L 501.9520, L500.4050, L501.2300, L100.0100 ####[facility] [address] [place], [address] Platelet mean volume (Bld) [Entitic vol] 8.6 fL Normal 6.2-12.0 [facility] Comment on above: Performed By: #### L 501.9520, L500.4050, L501.2300, L100.0100 ####[facility] [address] [place], [address] Platelets (Bld) [#/Vol] 292 10*3/uL Normal 150-450 [facility] Comment on above: Performed By: #### L 501.9520, L500.4050, L501.2300, L100.0100 ####[facility] [address] [place], [address] RBC (Bld) [#/Vol] 3.95 10*6/uL Low 4.2-5.4 [facility] Comment on above: Performed By: #### L 501.9520, L500.4050, L501.2300, L100.0100 ####[facility] [address] [place], [address] RDW SD 53.0 fl High 35.1-43.9 [facility] Comment on above: Performed By: #### L 501.9520, L500.4050, L501.2300, L100.0100 ####[facility] [address] [place], [address] WBC (Bld) [#/Vol] 7.2 10*3/uL Normal 4.4-11.0 [facility] Comment on above: Performed By: #### L 501.9520, L500.4050, L501.2300, L100.0100 ####[facility] [address] [place], [address] Carbon dioxide, total [Moles /volume] in Central venous bloodOrdered By: Shannan Waldrop on 01-04-2025 CO2 [Moles/Vol] 21.4 mmol/L 21.0-32.0 [facility] Chloride assayOrdered By: Adriana Waldrop on 01-04-2025 Chloride [Moles/Vol] 102 mmol/L 98-108 [facility] Comprehensive Metabolic Prof ilon 01-04-2025 Albumin [Mass/Vol] 3.8 g/dL Normal 3.4-4.8 [facility] Comment on above: Performed By: #### L 501.9520, L500.4050, L501.2300, L100.0100 ####[facility] [address] [place], [address] Albumin/Globulin [Mass ratio] 1.3 {ratio} Normal 0.9-2.4 [facility] Comment on above: Performed By: #### L 501.9520, L500.4050, L501.2300, L100.0100 ####[facility] [address] [place], [address] ALK PHOS 77 U/L Normal 35-104 [facility] Comment on above: Performed By: #### L 501.9520, L500.4050, L501.2300, L100.0100 ####[facility] [address] [place], [address] ALT [Catalytic activity/Vol] 8 U/L Normal <=34 [facility] Comment on above: Performed By: #### L 501.9520, L500.4050, L501.2300, L100.0100 ####[facility] [address] [place], [address] AST [Catalytic activity/Vol] 16 U/L Normal <=31 [facility] Comment on above: Performed By: #### L 501.9520, L500.4050, L501.2300, L100.0100 ####[facility] [address] [place], [address] Bilirubin [Mass/Vol] 0.26 mg/dL Normal 0.00-1.30 [facility] Comment on above: Performed By: #### L 501.9520, L500.4050, L501.2300, L100.0100 ####[facility] [address] [place], [address] BUN/CRE 13.9 RATIO Normal 10-20 [facility] Comment on above: Performed By: #### L 501.9520, L500.4050, L501.2300, L100.0100 ####[facility] [address] [place], [address] Calcium [Mass/Vol] 8.9 mg/dL Normal 7.6-11.0 [facility] Comment on above: Performed By: #### L 501.9520, L500.4050, L501.2300, L100.0100 ####[facility] [address] [place], [address] Chloride [Moles/Vol] 102 mmol/L Normal 98-108 [facility] Comment on above: Performed By: #### L 501.9520, L500.4050, L501.2300, L100.0100 ####[facility] [address] [place], [address] CO2 [Moles/Vol] 21.4 mmol/L Normal 21.0-32.0 [facility] Comment on above: Performed By: #### L 501.9520, L500.4050, L501.2300, L100.0100 ####[facility] [address] [place], [address] Creatinine [Mass/Vol] 0.82 mg/dL Normal 0.70-1.20 [facility] Comment on above: Performed By: #### L 501.9520, L500.4050, L501.2300, L100.0100 ####[facility] [address] [place], [address] ECRCL 62.82 ml/min Normal 50-250 [facility] Comment on above: Performed By: #### L 501.9520, L500.4050, L501.2300, L100.0100 ####[facility] [address] [place], [address] GAP 14 Normal 5-15 [facility] Comment on above: Performed By: #### L 501.9520, L500.4050, L501.2300, L100.0100 ####[facility] [address] [place], [address] GFR/1.73 sq M.predicted among non-blacks MDRD (S/P/Bld) [Vol rate/Area] 77 mL/min/{1.73_m2} Normal >60 [facility] Comment on above: Result Comment: mL/m in/1.73m2 CKD-EPI Creatinine Equation (2020) Performed By: #### L 501.9520, L500.4050, L501.2300, L100.0100 ####[facility] [address] [place], [address] Globulin (S) [Mass/Vol] 2.9 g/dL Normal 2.2-4.2 [facility] Comment on above: Performed By: #### L 501.9520, L500.4050, L501.2300, L100.0100 ####[facility] [address] [place], [address] Glucose [Mass/Vol] 221 mg/dL High 70-99 [facility] Comment on above: Performed By: #### L 501.9520, L500.4050, L501.2300, L100.0100 ####[facility] [address] [place], [address] Potassium [Moles/Vol] 3.9 mmol/L Normal 3.3-5.1 [facility] Comment on above: Performed By: #### L 501.9520, L500.4050, L501.2300, L100.0100 ####[facility] [address] [place], [address] Sodium [Moles/Vol] 138 mmol/L Normal 133-145 [facility] Comment on above: Performed By: #### L 501.9520, L500.4050, L501.2300, L100.0100 ####[facility] [address] [place], [address] T PROT 6.6 g/dL Normal 5.9-8.4 [facility] Comment on above: Performed By: #### L 501.9520, L500.4050, L501.2300, L100.0100 ####[facility] [address] [place], [address] Urea nitrogen [Mass/Vol] 11 mg/dL Normal 4-19 [facility] Comment on above: Performed By: #### L 501.9520, L500.4050, L501.2300, L100.0100 ####[facility] [address] [place], [address] Eosinophil percentageOrdered By: Shannan Waldrop on 01-04-2025 Eosinophils/100 WBC (Bld) 1.7 % 0-5 [facility] Erythrocyte distribution wid th ratioOrdered By: [facility] on 01-04-2025 Erythrocyte distribution width (RBC) [Ratio] 17.7 % High 11.6-14.6 [facility] Erythrocyte distribution wid th standard deviationOrdered By: [facility] on 01-04-2025 Erythrocyte distribution width (RBC) [Ratio] 53.0 fl High 35.1-43.9 [facility] Glomerular filtration rate ( GFR) estimation/1.73 sq m using serum, plasma, or whole bOrdered By: [facility] on 01-04-2025 GFR/1.73 sq M.predicted among non-blacks MDRD (S/P/Bld) [Vol rate/Area] 77 mL/min/{1.73_m2} >60 [facility] Comment on above: mL/min/1.73m2 CKD-EP I Creatinine Equation (2020) Hematocrit Auto (Bld) [Volum e fraction]Ordered By: Shannan Waldrop on 01-04-2025 Hematocrit (Bld) [Volume fraction] 32.1 % Low 37-47 [facility] Hemoglobin measurementOrdere d By: Shannan Waldrop on 01-04-2025 Hemoglobin (Bld) [Mass/Vol] 10.3 g/dL Low 12.0-15.0 [facility] Immature granulocytes/100 WB C Auto (Bld)Ordered By: Shannan Waldrop on 01-04-2025 Immature granulocytes/100 WBC (Bld) 0.400 % 0.0-0.9 [facility] Comment on above: IG% - Immature Granu locytes (promyelocytes, myelocytes and metamyelocytes) > 1% indicates that a LEFT SHIFT is Present. Laboratory - Chemistry and C hemistry - challengeOrdered By: Shannan Waldrop on 01-04-2025 AST [Catalytic activity/Vol] 16 U/L <32 [facility] MCV (mean corpuscular volume ) determinationOrdered By: [facility] on 01-04-2025 MCV (RBC) [Entitic vol] 81.3 fL 81-99 [facility] Mean corpuscular hemoglobin (MCH) determinationOrdered By: [facility] on 01-04-2025 MCH (RBC) [Entitic mass] 26.1 pg Low 27.0-32.0 [facility] Mean corpuscular hemoglobin concentration (MCHC) determinationOrdered By: [facility] on 01-04-2025 MCHC (RBC) [Mass/Vol] 32.1 g/dL 32-36 [facility] Mean platelet volume determi nationOrdered By: [facility] Hospital[facility] on 01-04-2025 Platelet mean volume (Bld) [Entitic vol] 8.6 fL 6.2-12.0 [facility] Monocyte percentageOrdered B y: [facility] on 01-04-2025 Monocytes/100 WBC (Bld) 8.4 % 0-10 [facility] Neutrophil percentageOrdered By: [facility] on 01-04-2025 Neutrophils/100 WBC (Bld) 73.9 % High 47-70 [facility] Nucleated red blood cell per centageOrdered By: [facility] on 01-04-2025 Nucleated RBC/100 WBC (Bld) [Ratio] 0 % 0-5 [facility] Oncology Visit Reporton 2 0 Oncology Visit Report Normal [facility] Phosphoruson 01-04-2025 Phosphate [Mass/Vol] 3.8 mg/dL Normal 2.7-4.5 [facility] Comment on above: Performed By: #### L 501.9563, L500.4050, L501.2300, L100.0100 ####[facility] [address] [place], [place], [address] Platelet countOrdered By: Adriana Waldrop on 01-04-2025 Platelets (Bld) [#/Vol] 292 10*3/uL 150-450 [facility] Potassium measurement (mass/ volume)Ordered By: Shannan Waldrop on 01-04-2025 Potassium (Unsp spec) [Mass/Vol] 3.9 mmol/L 3.3-5.1 [facility] RBC Auto (Bld) [#/Vol]Ordere d By: Shannan Waldrop on 01-04-2025 RBC (Bld) [#/Vol] 3.95 10*6/uL Low 4.2-5.4 [facility] Serum creatinine measurement (mass/volume)Ordered By: Shannan Waldrop on 01-04-2025 Creatinine [Mass/Vol] 0.82 mg/dL 0.70-1.20 [facility] Serum globulin measurementOr dered By: Shannan Waldrop on 01-04-2025 Globulin (S) [Mass/Vol] 2.9 g/dL 2.2-4.2 [facility] Serum glucose measurement (m ass/volume)Ordered By: Shannan Waldrop on 01-04-2025 Glucose [Mass/Vol] 221 mg/dL High 70-99 [facility] Serum or plasma alanine amezquita otransferase (ALT) measurementOrdered By: Shannan Waldrop on 01-04-2025 ALT [Catalytic activity/Vol] 8 U/L <35 [facility] Serum or plasma albumin joaquin urement (mass/volume)Ordered By: Shannan Waldrop on 01-04-2025 Albumin [Mass/Vol] 3.8 g/dL 3.4-4.8 [facility] Serum or plasma albumin/glob ulin mass ratioOrdered By: Shannan Waldrop on 01-04-2025 Albumin/Globulin [Mass ratio] 1.3 {ratio} 0.9-2.4 [facility] Serum or plasma alkaline gumaro sphatase measurementOrdered By: Shannan Waldrop on 01-04-2025 ALP [Catalytic activity/Vol] 77 U/L 35-104 [facility] Serum or plasma calcium joaquin urement (mass/volume)Ordered By: Shannan Waldrop on 01-04-2025 Calcium [Mass/Vol] 8.9 mg/dL 7.6-11.0 [facility] Serum or plasma urea nitroge n measurement (mass/volume)Ordered By: Shannan Waldrop on 01-04-2025 Urea nitrogen [Mass/Vol] 11 mg/dL 4-19 [facility] Sodium levelOrdered By: Spring peres Benjie on 01-04-2025 Sodium [Moles/Vol] 138 mmol/L 133-145 [facility] T4 Free Directon 01-04-2025 T4 FREE DIRECT 0.30 ng/dL Low 0.76-1.46 [facility] Comment on above: Order Comment: ADD O N FROM EARLIER TODAY, THANKS Performed By: #### L 506.0400 ####[facility] [address] [place], [address] T4 freeOrdered By: Shannan julio on 01-04-2025 Free T4 [Mass/Vol] 0.30 ng/dL Low 0.76-1.46 [facility] TSH DL <= 0.005 mIU/L QnOrde red By: Shannan Waldrop on 01-04-2025 TSH Qn 33.000 uIU/mL High 0.300-4.200 [facility] Thyroid Stim Hormone (TSH)on 01-04-2025 TSH 33.000 uIU/mL High 0.300-4.200 [facility] Comment on above: Performed By: #### L 501.9520, L500.4050, L501.2300, L100.0100 ####[facility] [address], [address] Total proteinOrdered By: Howard Waldrop on 01-04-2025 Protein [Mass/Vol] 6.6 g/dL 5.9-8.4 [facility] White blood cell (WBC) count Ordered By: Shannan Waldrop on 01-04-2025 WBC (Bld) [#/Vol] 7.2 10*3/uL 4.4-11.0 [facility] CBC W/Diff, Automatedon - Absolute Lymph 1.18 X10 3/uL Normal 0.83-4.51 [facility] Comment on above: Performed By: #### L 100.0100, L501.2300, L501.9520, L500.4050 ####[facility] [address] [place], [address] Absolute Neut 5.0 X10 3/uL Normal 2.0-7.7 [facility] Comment on above: Performed By: #### L 100.0100, L501.2300, L501.9520, L500.4050 ####[facility] [address] [place], [address] Basophils/100 WBC (Bld) 0.4 % Normal 0-1 [facility] Comment on above: Performed By: #### L 100.0100, L501.2300, L501.9520, L500.4050 ####[facility] [address] [place], [address] Eosinophils/100 WBC (Bld) 2.1 % Normal 0-5 [facility] Comment on above: Performed By: #### L 100.0100, L501.2300, L501.9520, L500.4050 ####[facility] [address] [place], [address] Erythrocyte distribution width (RBC) [Ratio] 17.6 % High 11.6-14.6 [facility] Comment on above: Performed By: #### L 100.0100, L501.2300, L501.9520, L500.4050 ####[facility] [address] [place], [address] Hematocrit (Bld) [Volume fraction] 32.3 % Low 37-47 [facility] Comment on above: Performed By: #### L 100.0100, L501.2300, L501.9520, L500.4050 ####[facility] [address] [place], [address] Hemoglobin (Bld) [Mass/Vol] 10.3 g/dL Low 12.0-15.0 [facility] Comment on above: Performed By: #### L 100.0100, L501.2300, L501.9520, L500.4050 ####[facility] [address] [place], [address] IG% 0.400 Normal 0.0-0.9 [facility] Comment on above: Result Comment: IG% - Immature Granulocytes (promyelocytes, myelocytes andmetamyelocytes) > 1% indicates that a LEFT SHIFT is Present. Performed By: #### L 100.0100, L501.2300, L501.9520, L500.4050 ####[facility] [address] [place], [address] Lymphocytes/100 WBC (Bld) 16.2 % Low 19-41 [facility] Comment on above: Performed By: #### L 100.0100, L501.2300, L501.9520, L500.4050 ####[facility] [address] [place], [address] MCH (RBC) [Entitic mass] 26.5 pg Low 27.0-32.0 [facility] Comment on above: Performed By: #### L 100.0100, L501.2300, L501.9520, L500.4050 ####[facility] [address] [place], [address] MCHC (RBC) [Mass/Vol] 31.9 g/dL Low 32-36 [facility] Comment on above: Performed By: #### L 100.0100, L501.2300, L501.9520, L500.4050 ####[facility] [address] [place], [address] MCV (RBC) [Entitic vol] 83.2 fL Normal 81-99 [facility] Comment on above: Performed By: #### L 100.0100, L501.2300, L501.9520, L500.4050 ####[facility] [address] [place], [address] Monocytes/100 WBC (Bld) 12.0 % High 0-10 [facility] Comment on above: Performed By: #### L 100.0100, L501.2300, L501.9520, L500.4050 ####[facility] [address] [place], [address] Neutrophils/100 WBC (Bld) 68.9 % Normal 47-70 [facility] Comment on above: Performed By: #### L 100.0100, L501.2300, L501.9520, L500.4050 ####[facility] [address] [place], [address] Nucleated RBC (Bld) [#/Vol] 0 10*3/uL Normal 0-5 [facility] Comment on above: Performed By: #### L 100.0100, L501.2300, L501.9520, L500.4050 ####[facility] [address] [place], [address] Platelet mean volume (Bld) [Entitic vol] 8.2 fL Normal 6.2-12.0 [facility] Comment on above: Performed By: #### L 100.0100, L501.2300, L501.9520, L500.4050 ####[facility] [address] [place], [address] Platelets (Bld) [#/Vol] 318 10*3/uL Normal 150-450 [facility] Comment on above: Performed By: #### L 100.0100, L501.2300, L501.9520, L500.4050 ####[facility] [address] [place], [address] RBC (Bld) [#/Vol] 3.88 10*6/uL Low 4.2-5.4 [facility] Comment on above: Performed By: #### L 100.0100, L501.2300, L501.9520, L500.4050 ####[facility] [address] [place], [address] RDW SD 53.1 fl High 35.1-43.9 [facility] Comment on above: Performed By: #### L 100.0100, L501.2300, L501.9520, L500.4050 ####[facility] [address] [place], [address] WBC (Bld) [#/Vol] 7.3 10*3/uL Normal 4.4-11.0 [facility] Comment on above: Performed By: #### L 100.0100, L501.2300, L501.9520, L500.4050 ####[facility] [address] [place], [address] Comprehensive Metabolic Prof [facility] 12-14-2024 Albumin [Mass/Vol] 3.8 g/dL Normal 3.4-4.8 [facility] Comment on above: Performed By: #### L 100.0100, L501.2300, L501.9520, L500.4050 ####[facility] [address] [place], [address] Albumin/Globulin [Mass ratio] 1.4 {ratio} Normal 0.9-2.4 [facility] Comment on above: Performed By: #### L 100.0100, L501.2300, L501.9520, L500.4050 ####[facility] [address] [place], [address] ALK PHOS 87 U/L Normal 35-104 [facility] Comment on above: Performed By: #### L 100.0100, L501.2300, L501.9520, L500.4050 ####[facility] [address] [place], [address] ALT [Catalytic activity/Vol] 9 U/L Normal <=34 [facility] Comment on above: Performed By: #### L 100.0100, L501.2300, L501.9520, L500.4050 ####[facility] [address] [place], [address] AST [Catalytic activity/Vol] 14 U/L Normal <=31 [facility] Comment on above: Performed By: #### L 100.0100, L501.2300, L501.9520, L500.4050 ####[facility] [address] [place], [address] Bilirubin [Mass/Vol] 0.17 mg/dL Normal 0.00-1.30 [facility] Comment on above: Performed By: #### L 100.0100, L501.2300, L501.9520, L500.4050 ####[facility] [address] [place], [address] BUN/CRE 17.3 RATIO Normal 10-20 [facility] Comment on above: Performed By: #### L 100.0100, L501.2300, L501.9520, L500.4050 ####[facility] [address] [place], [address] Calcium [Mass/Vol] 9.4 mg/dL Normal 7.6-11.0 [facility] Comment on above: Performed By: #### L 100.0100, L501.2300, L501.9520, L500.4050 ####[facility] [address] [place], [address] Chloride [Moles/Vol] 103 mmol/L Normal 98-108 [facility] Comment on above: Performed By: #### L 100.0100, L501.2300, L501.9520, L500.4050 ####[facility] [address] [place], [address] CO2 [Moles/Vol] 22.0 mmol/L Normal 21.0-32.0 [facility] Comment on above: Performed By: #### L 100.0100, L501.2300, L501.9520, L500.4050 ####[facility] [address] [place], [address] Creatinine [Mass/Vol] 0.58 mg/dL Low 0.70-1.20 [facility] Comment on above: Performed By: #### L 100.0100, L501.2300, L501.9520, L500.4050 ####[facility] [address] [place], [address] ECRCL 64.37 ml/min Normal 50-250 [facility] Comment on above: Performed By: #### L 100.0100, L501.2300, L501.9520, L500.4050 ####[facility] [address] [place], [address] GAP 13 Normal 5-15 [facility] Comment on above: Performed By: #### L 100.0100, L501.2300, L501.9520, L500.4050 ####[facility] [address] [place], [address] GFR/1.73 sq M.predicted among non-blacks MDRD (S/P/Bld) [Vol rate/Area] 98 mL/min/{1.73_m2} Normal >60 [facility] Comment on above: Result Comment: mL/m in/1.73m2 CKD-EPI Creatinine Equation (2021) Performed By: #### L 100.0100, L501.2300, L501.9520, L500.4050 ####[facility] [address] [place], [address] Globulin (S) [Mass/Vol] 2.7 g/dL Normal 2.2-4.2 [facility] Comment on above: Performed By: #### L 100.0100, L501.2300, L501.9520, L500.4050 ####[facility] [address] [place], [address] Glucose [Mass/Vol] 157 mg/dL High 70-99 [facility] Comment on above: Performed By: #### L 100.0100, L501.2300, L501.9520, L500.4050 ####[facility] [address] [place], [address] Potassium [Moles/Vol] 4.1 mmol/L Normal 3.3-5.1 [facility] Comment on above: Performed By: #### L 100.0100, L501.2300, L501.9520, L500.4050 ####[facility] [address] [place], [address] Sodium [Moles/Vol] 138 mmol/L Normal 133-145 [facility] Comment on above: Performed By: #### L 100.0100, L501.2300, L501.9520, L500.4050 ####[facility] [address] [place], [address] T PROT 6.5 g/dL Normal 5.9-8.4 [facility] Comment on above: Performed By: #### L 100.0100, L501.2300, L501.9520, L500.4050 ####[facility] [address] [place], [address] Urea nitrogen [Mass/Vol] 10 mg/dL Normal 4-19 [facility] Comment on above: Performed By: #### L 100.0100, L501.2300, L501.9520, L500.4050 ####[facility] [address], [address] Oncology Visit Reporton 11-17 Oncology Visit Report Normal [facility] Phosphoruson 12-14-2024 Phosphate [Mass/Vol] 3.7 mg/dL Normal 2.7-4.5 [facility] Comment on above: Performed By: #### L 100.0100, L501.2300, L501.9520, L500.4050 ####[facility] [address], [address] Thyroid Stim Hormone (TSH)on 12-14-2024 TSH 0.383 uIU/mL Normal 0.300-4.200 [facility] Comment on above: Performed By: #### L 100.0100, L501.2300, L501.9520, L500.4050 ####[facility] [address], [address] Absolute lymphocyte countOrd ered By: Sharif Christianson on 11-30-2024 Lymphocytes Auto (Unsp spec) [#/Vol] 1.07 10*3/uL 0.83-4.51 [facility] Absolute neutrophil countOrd ered By: Sharif Christianson on 11-30-2024 Neutrophils (Bld) [#/Vol] 4.0 10*3/uL 2.0-7.7 [facility] Anion gap in Serum or Plasma Ordered By: Sharif Christianson on 11-30-2024 Anion gap [Moles/Vol] 12 mmol/L 12-30 [facility] Automated blood erythrocyte countOrdered By: Sharif Christianson on 11-30-2024 RBC (Bld) [#/Vol] 3.63 10*6/uL Low 4.2-5.4 [facility] Comment on above: Order Comment: Order Date: 09/23/24Order Info: [id number] - CBCD Performed By: #### L 500.4100, L100.0100, L501.5200, L500.4050, L501.9985 ####[facility] [address] [place], [address] Automated blood hematocrit ( percentage)Ordered By: Sharif Christianson on 11-30-2024 Hematocrit (Bld) [Volume fraction] 30.7 % Low 37-47 [facility] Comment on above: Order Comment: Order Date: 09/23/24Order Info: [id number] - CBCD Performed By: #### L 500.4100, L100.0100, L501.5200, L500.4050, L501.9985 ####[facility] [address] [place], [address] Automated lymphocyte count a s percentage of total leukocytesOrdered By: Sharif Christianson on 11-30-2024 Lymphocytes/100 WBC (Bld) 16.9 % Low 19-41 [facility] Comment on above: Order Comment: Order Date: 09/23/24Order Info: [id number] - CBCD Performed By: #### L 500.4100, L100.0100, L501.5200, L500.4050, L501.9985 ####[facility] [address] [facility] [address] [place], [address] Lymphocytes/100 WBC Auto (Unsp spec) 16.9 % Low 19-41 [facility] BUN/creatinine ratioOrdered By: Sharif Christianson on 11-30-2024 Urea nitrogen/Creatinine [Mass ratio] 19.2 mg/mg 10-20 [facility] Basophil percentageOrdered B y: Sharif Christianson on 11-30-2024 Basophils/100 WBC (Bld) 0.3 % Normal 0-1 [facility] Comment on above: Order Comment: Order Date: 09/23/24Order Info: [id number]- - CBCD Performed By: #### L 500.4100, L100.0100, L501.5200, L500.4050, L501.9985 ####[facility] [address] [place], [address] Bilirubin, totalOrdered By: Sharif Christianson on 11-30-2024 Bilirubin [Mass/Vol] 0.22 mg/dL Normal 0.00-1.30 [facility] Comment on above: Order Comment: Order Date: 09/23/24Order Info: [id number] - CMPOrder Info: [id number] - LIPIDOrder Info: [id number] - MG Performed By: #### L 500.4100, L100.0100, L501.5200, L500.4050, L501.9985 ####[facility] [address] [place], [address] CBC W/Diff, Automatedon 11-16 Absolute Lymph 1.07 X10 3/uL Normal 0.83-4.51 [facility] Comment on above: Order Comment: Order Date: 09/23/24Order Info: [id number] - CBCD Performed By: #### L 500.4100, L100.0100, L501.5200, L500.4050, L501.9985 ####[facility] [address] [place], [address] Absolute Neut 4.0 X10 3/uL Normal 2.0-7.7 [facility] Comment on above: Order Comment: Order Date: 09/23/24Order Info: [id number] - CBCD Performed By: #### L 500.4100, L100.0100, L501.5200, L500.4050, L501.9985 ####[facility] [address] [place], [address] IG% 0.200 Normal 0.0-0.9 [facility] Comment on above: Order Comment: Order Date: 09/23/24Order Info: [id number] - CBCD Result Comment: IG% - Immature Granulocytes (promyelocytes, myelocytes andmetamyelocytes) > 1% indicates that a LEFT SHIFT is Present. Performed By: #### L 500.4100, L100.0100, L501.5200, L500.4050, L501.9985 ####[facility] [address] [place], [place], [address] Nucleated RBC (Bld) [#/Vol] 0 10*3/uL Normal 0-5 [facility] Comment on above: Order Comment: Order Date: 09/23/24Order Info: [id number] - CBCD Performed By: #### L 500.4100, L100.0100, L501.5200, L500.4050, L501.9985 ####[facility] [address] [place], [place], [address] RDW SD 54.1 fl High 35.1-43.9 [facility] Comment on above: Order Comment: Order Date: 09/23/24Order Info: [id number] - CBCD Performed By: #### L 500.4100, L100.0100, L501.5200, L500.4050, L501.9985 ####[facility] [address] [place], [place], [id number] Chest AND Abd W/ Contrast on 11-30-2024 CT Chest AND Abd W/ Contrast Normal [facility] Calculated very low density lipoprotein (VLDL) cholesterol measurementOrdered By: Sharif Christianson on 11-30-2024 Calculated very low density lipoprotein (VLDL) cholesterol measurement 18 mg/dL -40 [facility] VLDL Cholesterol 18 mg/dL -40 [facility] Carbon dioxide, total [Moles /volume] in Central venous bloodOrdered By: Sharif Christianson on 11-30-2024 CO2 [Moles/Vol] 21.2 mmol/L Normal 21.0-32.0 [facility] Comment on above: Order Comment: Order Date: 09/23/24Order Info: [id number] - CMPOrder Info: [id number] - LIPIDOrder Info: [id number] - MG Performed By: #### L 500.4100, L100.0100, L501.5200, L500.4050, L501.9985 ####[facility] [address] [place], [address] Chloride assayOrdered By: Yessenia Christianson on 11-30-2024 Chloride [Moles/Vol] 103 mmol/L Normal 98-108 [facility] Comment on above: Order Comment: Order Date: 09/23/24Order Info: [id number] - CMPOrder Info: [id number] - LIPIDOrder Info: [id number] - MG Performed By: #### L 500.4100, L100.0100, L501.5200, L500.4050, L501.9985 ####[facility] [address] [place], [address] Comprehensive Metabolic Prof ilon 11-30-2024 ALK PHOS 80 U/L Normal 35-104 [facility] Comment on above: Order Comment: Order Date: 09/23/24Order Info: [id number] - CMPOrder Info: [id number] - LIPIDOrder Info: [id number] - MG Performed By: #### L 500.4100, L100.0100, L501.5200, L500.4050, L501.9985 ####[facility] [address] [place], [address] BUN/CRE 19.2 RATIO Normal 10-20 [facility] Comment on above: Order Comment: Order Date: 09/23/24Order Info: [id number] - CMPOrder Info: [id number] - LIPIDOrder Info: [id number] - MG Performed By: #### L 500.4100, L100.0100, L501.5200, L500.4050, L501.9985 ####[facility] [address] [place], [address] GAP 12 Normal 5-15 [facility] Comment on above: Order Comment: Order Date: 09/23/24Order Info: [id number] - CMPOrder Info: [id number] - LIPIDOrder Info: - MG Performed By: #### L 500.4100, L100.0100, L501.5200, L500.4050, L501.9985 ####[facility] [address], [address] T PROT 6.0 g/dL Normal 5.9-8.4 [facility] Comment on above: Order Comment: Order Date: 09/23/24Order Info: [id number] - CMPOrder Info: [id number] - LIPIDOrder Info: - MG Performed By: #### L 500.4100, L100.0100, L501.5200, L500.4050, L501.9985 ####[facility] [address] [place], [place], [address] Comprehensive Metabolic Prof ilOrdered By: Sharif Christianson on 11-30-2024 AST [Catalytic activity/Vol] 18 U/L Normal <=31 [facility] Comment on above: Order Comment: Order Date: 09/23/24Order Info: [id number] - CMPOrder Info: [id number] - LIPIDOrder Info: - MG Performed By: #### L 500.4100, L100.0100, L501.5200, L500.4050, L501.9985 ####[facility] [address] [place], [place], [address] Eosinophil percentageOrdered By: Sharif Christianson on 11-30-2024 Eosinophils/100 WBC (Bld) 1.6 % Normal 0-5 [facility] Comment on above: Order Comment: Order Date: 09/23/24Order Info: [id number] - CBCD Performed By: #### L 500.4100, L100.0100, L501.5200, L500.4050, L501.9985 ####[facility] [address] [place], [address] Erythrocyte distribution wid th (RBC) [Ratio]Ordered By: Sharif Christianson on 11-30-2024 Erythrocyte distribution width (RBC) [Entitic vol] 54.1 fL High 35.1-43.9 [facility] Erythrocyte distribution wid th ratioOrdered By: Sharif Christianson on 11-30-2024 Erythrocyte distribution width (RBC) [Ratio] 17.4 % High 11.6-14.6 [facility] Comment on above: Order Comment: Order Date: 09/23/24Order Info: [id number] - CBCD Performed By: #### L 500.4100, L100.0100, L501.5200, L500.4050, L501.9985 ####[facility] [address] [place], [place], [address] Erythrocyte distribution wid th standard deviationOrdered By: Sharif Christianson on 11-30-2024 Erythrocyte distribution width (RBC) [Ratio] 54.1 fl High 35.1-43.9 [facility] GFR/1.73 sq M.predicted shakir g non-blacks MDRD (S/P/Bld) [Vol rate/Area]Ordered By: Sharif Christianson on 11-30-2024 Estimated GFR (MDRD) Non-Af Amer 96 >60 [facility] Comment on above: mL/min/1.73m2 CKD-EP I Creatinine Equation (2020) Glomerular filtration rate ( GFR) estimation/1.73 sq m using serum, plasma, or whole bOrdered By: Sharif Christianson on 11-30-2024 GFR/1.73 sq M.predicted among non-blacks MDRD (S/P/Bld) [Vol rate/Area] 96 mL/min/{1.73_m2} Normal >60 [facility] Comment on above: mL/min/1.73m2 CKD-EP I Creatinine Equation (2020) Order Comment: Order Date: 09/23/24Order Info: [id number] - CMPOrder Info: [id number] - LIPIDOrder Info: [id number] - MG Result Comment: mL/m in/1.73m2 CKD-EPI Creatinine Equation (2020) Performed By: #### L 500.4100, L100.0100, L501.5200, L500.4050, L501.9985 ####[facility] [address] [place], [address] Hemoglobin A1c percentageOrd ered By: Sharif Christianson on 11-30-2024 HbA1c (Bld) [Mass fraction] 6.9 % High <=5.6 [facility] Comment on above: Normal < 5.7 % Predi abetic 5.7 - 6.4 % Diabetic >or= 6.5 % Please note range changes. Order Comment: Order Date: 09/23/24Order Info: [id number] - A1C Result Comment: Norm al < 5.7 % Prediabetic 5.7 - 6.4 % Diabetic >or= 6.5 % Please note range changes. Performed By: #### L 500.4100, L100.0100, L501.5200, L500.4050, L501.9985 ####[facility] [address], [address] Hemoglobin measurementOrdere d By: Sharif Christianson on 11-30-2024 Hemoglobin (Bld) [Mass/Vol] 9.7 g/dL Low 12.0-15.0 [facility] Comment on above: Order Comment: Order Date: 09/23/24Order Info: [id number] - CBCD Performed By: #### L 500.4100, L100.0100, L501.5200, L500.4050, L501.9985 ####[facility] [address], [address] Immature granulocytes/100 WB C Auto (Bld)Ordered By: Sharif Christianson on 11-30-2024 Immature granulocytes/100 WBC (Bld) 0.200 % 0.0-0.9 [facility] Comment on above: IG% - Immature Granu locytes (promyelocytes, myelocytes and metamyelocytes) > 1% indicates that a LEFT SHIFT is Present. LDL calc ser/plasOrdered By: Sharif Christianson on 11-30-2024 Cholesterol in LDL [Mass/Vol] 25 mg/dL Normal [facility] Comment on above: Sldjlgbkqp=261-508 m g/dL & Higher Hjem=803 mg/dL or greater Order Comment: Order Date: 09/23/24Order Info: [id number] - CMPOrder Info: [id number] - LIPIDOrder Info: [id number] - MG Result Comment: Bord yucyry=150-291 mg/dL Higher Fatf=482 mg/dL or greater Performed By: #### L 500.4100, L100.0100, L501.5200, L500.4050, L501.9985 ####[facility] [address] [place], [address] LDL Cholesterol, Calculated 25 mg/dL [facility] Comment on above: Idstpklqdg=653-747 m g/dL & Higher Oybi=550 mg/dL or greater Lipid Profileon 11-30-2024 CHOL:HDL 2.12 Normal [facility] Comment on above: Order Comment: Order Date: 09/23/24Order Info: [id number] - CMPOrder Info: [id number] - LIPIDOrder Info: - MG Performed By: #### L 500.4100, L100.0100, L501.5200, L500.4050, L501.9985 ####[facility] [address] [place], [address] Cholesterol in VLDL [Mass/Vol] 18 mg/dL Normal 5-40 [facility] Comment on above: Order Comment: Order Date: 09/23/24Order Info: [id number] - CMPOrder Info: [id number] - LIPIDOrder Info: [id number] - MG Performed By: #### L 500.4100, L100.0100, L501.5200, L500.4050, L501.9985 ####[facility] [address] [place], [address] Lymphocytes Auto (Unsp spec) [#/Vol]Ordered By: Sharif Christianson on 11-30-2024 Lymphocytes (Bld) [#/Vol] 1.07 10*3/uL 0.83-4.5 1 [facility] MCV (mean corpuscular volume ) determinationOrdered By: Sharif Christianson on 11-30-2024 MCV (RBC) [Entitic vol] 84.6 fL Normal 81-99 [facility] Comment on above: Order Comment: Order Date: 09/23/24Order Info: [id number] - CBCD Performed By: #### L 500.4100, L100.0100, L501.5200, L500.4050, L501.9985 ####[facility] [address] [place], [address] Magnesium measurement (mass/ volume)Ordered By: Sharif Christianson on 11-30-2024 Magnesium [Mass/Vol] 1.5 mg/dL Normal 1.5-2.2 [facility] Comment on above: Order Comment: Order Date: 09/23/24Order Info: [id number] - CMPOrder Info: [id number] - LIPIDOrder Info: [id number] - MG Performed By: #### L 500.4100, L100.0100, L501.5200, L500.4050, L501.9985 ####[facility] [address] [place], [address] Magnesium (Unsp spec) [Mass/Vol] 1.5 mg/dL 1.5-2.2 [facility] Mean corpuscular hemoglobin (MCH) determinationOrdered By: Sharif Christianson on 11-30-2024 MCH (RBC) [Entitic mass] 26.7 pg Low 27.0-32.0 [facility] Comment on above: Order Comment: Order Date: 09/23/24Order Info: [id number] - CBCD Performed By: #### L 500.4100, L100.0100, L501.5200, L500.4050, L501.9985 ####[facility] [address] [place], [address] Mean corpuscular hemoglobin concentration (MCHC) determinationOrdered By: Sharif Christianson on 11-30-2024 MCHC (RBC) [Mass/Vol] 31.6 g/dL Low 32-36 [facility] Comment on above: Order Comment: Order Date: 09/23/24Order Info: [id number] - CBCD Performed By: #### L 500.4100, L100.0100, L501.5200, L500.4050, L501.9985 ####[facility] [address] [place], [address] Mean platelet volume determi nationOrdered By: Sharif Christianson on 11-30-2024 Platelet mean volume (Bld) [Entitic vol] 8.7 fL Normal 6.2-12.0 [facility] Comment on above: Order Comment: Order Date: 09/23/24Order Info: [id number] - CBCD Performed By: #### L 500.4100, L100.0100, L501.5200, L500.4050, L501.9985 ####[facility] [address] [place], [address] Monocyte percentageOrdered B y: Sharif Christianson on 11-30-2024 Monocytes/100 WBC (Bld) 17.2 % High 0-10 [facility] Comment on above: Order Comment: Order Date: 09/23/24Order Info: [id number] - CBCD Performed By: #### L 500.4100, L100.0100, L501.5200, L500.4050, L501.9985 ####[facility] [address] [place], [address] Neutrophil percentageOrdered By: Sharif Christianson on 11-30-2024 Neutrophils/100 WBC (Bld) 63.8 % Normal 47-70 [facility] Comment on above: Order Comment: Order Date: 09/23/24Order Info: [id number] - CBCD Performed By: #### L 500.4100, L100.0100, L501.5200, L500.4050, L501.9985 ####[facility] [address] [place], [address] Nucleated red blood cell per centageOrdered By: Sharif Christianson on 11-30-2024 Nucleated RBC/100 WBC (Bld) [Ratio] 0 % 0-5 [facility] Platelet countOrdered By: Yessenia Christianson on 11-30-2024 Platelets (Bld) [#/Vol] 273 10*3/uL Normal 150-450 [facility] Comment on above: Order Comment: Order Date: 09/23/24Order Info: [id number] - CBCD Performed By: #### L 500.4100, L100.0100, L501.5200, L500.4050, L501.9985 ####[facility] [address] [place], [address] Potassium measurement (mass/ volume)Ordered By: Sharif Christianson on 11-30-2024 Potassium [Moles/Vol] 4.0 mmol/L Normal 3.3-5.1 [facility] Comment on above: Order Comment: Order Date: 09/23/24Order Info: [id number] - CMPOrder Info: [id number] - LIPIDOrder Info: [id number] - MG Performed By: #### L 500.4100, L100.0100, L501.5200, L500.4050, L501.9985 ####[facility] [address] [place], [address] Potassium (Unsp spec) [Mass/Vol] 4.0 mmol/L 3.3-5.1 [facility] Screening total cholesterol/ high density lipoprotein (HDL) cholesterol ratioOrdered By: Sharif Christianson on 11-30-2024 Cholesterol.total/Cholest irasema in HDL [Mass ratio] 2.12 {ratio} [facility] Serum creatinine measurement (mass/volume)Ordered By: Sharif Christianson on 11-30-2024 Creatinine [Mass/Vol] 0.62 mg/dL Low 0.70-1.20 [facility] Comment on above: Order Comment: Order Date: 09/23/24Order Info: [id number] - CMPOrder Info: [id number] - LIPIDOrder Info: [id number] - MG Performed By: #### L 500.4100, L100.0100, L501.5200, L500.4050, L501.9985 ####[facility] [address] [place], [place], [address] Serum globulin measurementOr dered By: Sharif Christianson on 11-30-2024 Globulin (S) [Mass/Vol] 2.6 g/dL Normal 2.2-4.2 [facility] Comment on above: Order Comment: Order Date: 09/23/24Order Info: [id number] - CMPOrder Info: [id number] - LIPIDOrder Info: [id number] - MG Performed By: #### L 500.4100, L100.0100, L501.5200, L500.4050, L501.9985 ####[facility] [address] [place], [place], [id number] Serum glucose measurement (m ass/volume)Ordered By: Sharif Christianson on 11-30-2024 Glucose [Mass/Vol] 186 mg/dL High 70-99 [facility] Comment on above: Order Comment: Order Date: 09/23/24Order Info: [id number] - CMPOrder Info: [id number] - LIPIDOrder Info: - MG Performed By: #### L 500.4100, L100.0100, L501.5200, L500.4050, L501.9985 ####[facility] [address] [place], [place], [address] Serum or plasma alanine amezquita otransferase (ALT) measurementOrdered By: Sharif Christianson on 11-30-2024 ALT [Catalytic activity/Vol] 15 U/L Normal <=34 [facility] Comment on above: Order Comment: Order Date: 09/23/24Order Info: [id number] - CMPOrder Info: [id number] - LIPIDOrder Info: [id number] - MG Performed By: #### L 500.4100, L100.0100, L501.5200, L500.4050, L501.9985 ####[facility] [address] [place], [address] Serum or plasma albumin joaquin urement (mass/volume)Ordered By: Sharif Christianson on 11-30-2024 Albumin [Mass/Vol] 3.4 g/dL Normal 3.4-4.8 [facility] Comment on above: Order Comment: Order Date: 09/23/24Order Info: [id number] - CMPOrder Info: [id number] - LIPIDOrder Info: [id number] - MG Performed By: #### L 500.4100, L100.0100, L501.5200, L500.4050, L501.9985 ####[facility] [address] [place], [place], [address] Serum or plasma albumin/glob ulin mass ratioOrdered By: Sharif Christianson on 11-30-2024 Albumin/Globulin [Mass ratio] 1.3 {ratio} Normal 0.9-2.4 [facility] Comment on above: Order Comment: Order Date: 09/23/24Order Info: [id number] - CMPOrder Info: [id number] - LIPIDOrder Info: - MG Performed By: #### L 500.4100, L100.0100, L501.5200, L500.4050, L501.9985 ####[facility] [address] [place], [place], [id number] Serum or plasma alkaline gumaro sphatase measurementOrdered By: Sharif Christianson on 11-30-2024 ALP [Catalytic activity/Vol] 80 U/L 35-104 [facility] Serum or plasma calcium joaquin urement (mass/volume)Ordered By: Sharif Christianson on 11-30-2024 Calcium [Mass/Vol] 9.3 mg/dL Normal 7.6-11.0 [facility] Comment on above: Order Comment: Order Date: 09/23/24Order Info: [id number] - CMPOrder Info: [id number] - LIPIDOrder Info: [id number] - MG Performed By: #### L 500.4100, L100.0100, L501.5200, L500.4050, L501.9985 ####[facility] [address] [place], [place], [address] Serum or plasma cholesterol in HDL measurement (mass/volume)Ordered By: Sharif Christianson on 11-30-2024 Cholesterol in HDL [Mass/Vol] 38 mg/dL Low [facility] Comment on above: National Cholesterol Education Program (NCEP) guidelines:<40 mg/dL: Low HDL-cholesterol (major risk factor for CHD)>= 60 mg/dL: High HDL-cholesterol (negative risk factor for CHD)HDL-cholesterol is affected by a number of factors, e.g. smoking, exercise, hormones, sex and age. Order Comment: Order Date: 09/23/24Order Info: [id number] - CMPOrder Info: [id number] - LIPIDOrder Info: [id number] - MG Result Comment: Ledy onal Cholesterol Education Program (NCEP) guidelines:<40 mg/dL: Low HDL-cholesterol (major risk factor for CHD)>= 60 mg/dL: High HDL-cholesterol (negative risk factor forCHD)HDL-cholesterol is affected by a number of factors, e.g.smoking, exercise, hormones, sex and age. Performed By: #### L 500.4100, L100.0100, L501.5200, L500.4050, L501.9985 ####[facility] [address] [facility] [place], [address] Serum or plasma cholesterol measurement (mass/volume)Ordered By: Sharif Christianson on 11-30-2024 Cholesterol [Mass/Vol] 80 mg/dL Normal <=200 [facility] Comment on above: Cholesterol level, D esirable <200 mg/dLBorderline high cholesterol 200-239 mg/dLHigh cholesterol >=240 mg/dLRecommendations of the NCEP Adult Treatment Panel for the following risk-cutoff thresholds for the [place] population. Order Comment: Order Date: 09/23/24Order Info: [id number] - CMPOrder Info: [id number] - LIPIDOrder Info: [id number] - MG Result Comment: Chol esterol level, Desirable <200 mg/dLBorderline high cholesterol 200-239 mg/dLHigh cholesterol >=240 mg/dLRecommendations of the NCEP Adult Treatment Panel for thefollowing risk-cutoff thresholds for the [place]. Performed By: #### L 500.4100, L100.0100, L501.5200, L500.4050, L501.9985 ####[facility] [address] [place], [address] Serum or plasma urea nitroge n measurement (mass/volume)Ordered By: Sharif Christianson on 11-30-2024 Urea nitrogen [Mass/Vol] 12 mg/dL Normal 4-19 [facility] Comment on above: Order Comment: Order Date: 09/23/24Order Info: [id number] - CMPOrder Info: [id number] - LIPIDOrder Info: [id number] - MG Performed By: #### L 500.4100, L100.0100, L501.5200, L500.4050, L501.9985 ####[facility] [address] [place], [address] Sodium levelOrdered By: Sharif Christianson on 11-30-2024 Sodium [Moles/Vol] 136 mmol/L Normal 133-145 [facility] Comment on above: Order Comment: Order Date: 09/23/24Order Info: [id number] - CMPOrder Info: [id number] - LIPIDOrder Info: [id number] - MG Performed By: #### L 500.4100, L100.0100, L501.5200, L500.4050, L501.9985 ####[facility] [address] [place], [place], [address] Total proteinOrdered By: Link Christianson on 11-30-2024 Protein [Mass/Vol] 6.0 g/dL 5.9-8.4 [facility] Triglycerides measurementOrd ered By: Sharif Christianson on 11-30-2024 Triglyceride [Mass/Vol] 88 mg/dL Normal [facility] Comment on above: The drugs N-Acetylcy steine and Metamizole may falsely depress this assay. Normal range: <150 mg/dLBorderline High: 150-199 mg/dLHigh: 200-499 mg/dLVery High: >500 mg/dL Order Comment: Order Date: 09/23/24Order Info: [id number] - CMPOrder Info: [id number] - LIPIDOrder Info: [id number] - MG Result Comment: The drugs N-Acetylcysteine and Metamizole may falselydepress this assay.Normal range: <150 mg/dLBorderline High: 150-199 mg/dLHigh: 200-499 mg/dLVery High: >500 mg/dL Performed By: #### L 500.4100, L100.0100, L501.5200, L500.4050, L501.9985 ####[facility] [address] [place], [place], [id number] White blood cell (WBC) count Ordered By: Sharif Christianson on 11-30-2024 WBC (Bld) [#/Vol] 6.3 10*3/uL Normal 4.4-11.0 [facility] Comment on above: Order Comment: Order Date: 09/23/24Order Info: [id number] - CBCD Performed By: #### L 500.4100, L100.0100, L501.5200, L500.4050, L501.9985 ####[facility] [address] [place], [place], [address] Absolute neutrophil countOrd ered By: Shannan Waldrop on 11-23-2024 Neutrophils (Bld) [#/Vol] 4.2 10*3/uL 2.0-7.7 [facility] Anion gap in Serum or Plasma Ordered By: Shannan Waldrop on 11-23-2024 Anion gap [Moles/Vol] 14 mmol/L - [facility] BUN/creatinine ratioOrdered By: Shannan Waldrop on 11-23-2024 Urea nitrogen/Creatinine [Mass ratio] 16.8 mg/mg 10- [facility] Basophil percentageOrdered B y: Shannan Waldrop on 11-23-2024 Basophils/100 WBC (Bld) 0.4 % 0-1 [facility] Bilirubin, totalOrdered By: Shannan Benjie on 11-23-2024 Bilirubin [Mass/Vol] 0.21 mg/dL 0.00-1.30 [facility] CBC W/Diff, Automatedon Absolute Lymph 1.17 X10 3/uL Normal 0.83-4.51 [facility] Comment on above: Performed By: #### L 100.0100, L500.4050, L501.2300, L501.9520 ####[facility] [address] [place], [address] Absolute Neut 4.2 X10 3/uL Normal 2.0-7.7 [facility] Comment on above: Performed By: #### L 100.0100, L500.4050, L501.2300, L501.9520 ####[facility] [address] [place], [address] Basophils/100 WBC (Bld) 0.4 % Normal 0-1 [facility] Comment on above: Performed By: #### L 100.0100, L500.4050, L501.2300, L501.9520 ####[facility] [address] [place], [address] Eosinophils/100 WBC (Bld) 2.4 % Normal 0-5 [facility] Comment on above: Performed By: #### L 100.0100, L500.4050, L501.2300, L501.9520 ####[facility] [address] [place], [address] Erythrocyte distribution width (RBC) [Ratio] 18.0 % High 11.6-14.6 [facility] Comment on above: Performed By: #### L 100.0100, L500.4050, L501.2300, L501.9520 ####[facility] [address] [place], [address] Hematocrit (Bld) [Volume fraction] 32.5 % Low 37-47 [facility] Comment on above: Performed By: #### L 100.0100, L500.4050, L501.2300, L501.9520 ####[facility] [address] [place], [address] Hemoglobin (Bld) [Mass/Vol] 10.0 g/dL Low 12.0-15.0 [facility] Comment on above: Performed By: #### L 100.0100, L500.4050, L501.2300, L501.9520 ####[facility] [address] [place], [address] IG% 0.400 Normal 0.0-0.9 [facility] Comment on above: Result Comment: IG% - Immature Granulocytes (promyelocytes, myelocytes andmetamyelocytes) > 1% indicates that a LEFT SHIFT is Present. Performed By: #### L 100.0100, L500.4050, L501.2300, L501.9520 ####[facility] [address] [place], [address] Lymphocytes/100 WBC (Bld) 17.5 % Low 19-41 [facility] Comment on above: Performed By: #### L 100.0100, L500.4050, L501.2300, L501.9520 ####[facility] [address] [place], [address] MCH (RBC) [Entitic mass] 26.8 pg Low 27.0-32.0 [facility] Comment on above: Performed By: #### L 100.0100, L500.4050, L501.2300, L501.9520 ####[facility] [address] [place], [address] MCHC (RBC) [Mass/Vol] 30.8 g/dL Low 32-36 [facility] Comment on above: Performed By: #### L 100.0100, L500.4050, L501.2300, L501.9520 ####[facility] [address] [place], [address] MCV (RBC) [Entitic vol] 87.1 fL Normal 81-99 [facility] Comment on above: Performed By: #### L 100.0100, L500.4050, L501.2300, L501.9520 ####[facility] [address] [place], [address] Monocytes/100 WBC (Bld) 17.2 % High 0-10 [facility] Comment on above: Performed By: #### L 100.0100, L500.4050, L501.2300, L501.9520 ####[facility] [address] [place], [address] Neutrophils/100 WBC (Bld) 62.1 % Normal 47-70 [facility] Comment on above: Performed By: #### L 100.0100, L500.4050, L501.2300, L501.9520 ####[facility] [address] [place], [address] Nucleated RBC (Bld) [#/Vol] 0 10*3/uL Normal 0-5 [facility] Comment on above: Performed By: #### L 100.0100, L500.4050, L501.2300, L501.9520 ####[facility] [address] [place], [address] Platelet mean volume (Bld) [Entitic vol] 8.7 fL Normal 6.2-12.0 [facility] Comment on above: Performed By: #### L 100.0100, L500.4050, L501.2300, L501.9520 ####[facility] [address] [place], [address] Platelets (Bld) [#/Vol] 310 10*3/uL Normal 150-450 [facility] Comment on above: Performed By: #### L 100.0100, L500.4050, L501.2300, L501.9520 ####[facility] [address] [place], [address] RBC (Bld) [#/Vol] 3.73 10*6/uL Low 4.2-5.4 [facility] Comment on above: Performed By: #### L 100.0100, L500.4050, L501.2300, L501.9520 ####[facility] [address] [place], [address] RDW SD 57.4 fl High 35.1-43.9 [facility] Comment on above: Performed By: #### L 100.0100, L500.4050, L501.2300, L501.9520 ####[facility] [address] [place], [address] WBC (Bld) [#/Vol] 6.7 10*3/uL Normal 4.4-11.0 [facility] Comment on above: Performed By: #### L 100.0100, L500.4050, L501.2300, L501.9520 ####[facility] [address] [place], [address] Carbon dioxide, total [Moles /volume] in Central venous bloodOrdered By: Shannan Waldrop on 11-23-2024 CO2 [Moles/Vol] 20.7 mmol/L Low 21.0-32.0 [facility] Chloride assayOrdered By: Adriana Waldrop on 11-23-2024 Chloride [Moles/Vol] 106 mmol/L 98-108 [facility] Comprehensive Metabolic Prof ilon 11-23-2024 Albumin [Mass/Vol] 3.6 g/dL Normal 3.4-4.8 [facility] Comment on above: Performed By: #### L 100.0100, L500.4050, L501.2300, L501.9520 ####[facility] [address] [place], [address] Albumin/Globulin [Mass ratio] 1.3 {ratio} Normal 0.9-2.4 [facility] Comment on above: Performed By: #### L 100.0100, L500.4050, L501.2300, L501.9520 ####[facility] [address] [place], [address] ALK PHOS 78 U/L Normal 35-104 [facility] Comment on above: Performed By: #### L 100.0100, L500.4050, L501.2300, L501.9520 ####[facility] [address] [place], [address] ALT [Catalytic activity/Vol] 16 U/L Normal <=34 [facility] Comment on above: Performed By: #### L 100.0100, L500.4050, L501.2300, L501.9520 ####[facility] [address] [place], [address] AST [Catalytic activity/Vol] 18 U/L Normal <=31 [facility] Comment on above: Performed By: #### L 100.0100, L500.4050, L501.2300, L501.9520 ####[facility] [address] [place], [address] Bilirubin [Mass/Vol] 0.21 mg/dL Normal 0.00-1.30 [facility] Comment on above: Performed By: #### L 100.0100, L500.4050, L501.2300, L501.9520 ####[facility] [address] [place], [address] BUN/CRE 16.8 RATIO Normal 10-20 [facility] Comment on above: Performed By: #### L 100.0100, L500.4050, L501.2300, L501.9520 ####[facility] [address] [place], [address] Calcium [Mass/Vol] 9.0 mg/dL Normal 7.6-11.0 [facility] Comment on above: Performed By: #### L 100.0100, L500.4050, L501.2300, L501.9520 ####[facility] [address] [place], [address] Chloride [Moles/Vol] 106 mmol/L Normal 98-108 [facility] Comment on above: Performed By: #### L 100.0100, L500.4050, L501.2300, L501.9520 ####[facility] [address] [place], [address] CO2 [Moles/Vol] 20.7 mmol/L Low 21.0-32.0 [facility] Comment on above: Performed By: #### L 100.0100, L500.4050, L501.2300, L501.9520 ####[facility] [address] [place], [address] Creatinine [Mass/Vol] 0.57 mg/dL Low 0.70-1.20 [facility] Comment on above: Performed By: #### L 100.0100, L500.4050, L501.2300, L501.9520 ####[facility] [address] [place], [address] ECRCL 64.37 ml/min Normal 50-250 [facility] Comment on above: Performed By: #### L 100.0100, L500.4050, L501.2300, L501.9520 ####[facility] [address] [place], [address] GAP 14 Normal 5-15 [facility] Comment on above: Performed By: #### L 100.0100, L500.4050, L501.2300, L501.9520 ####[facility] [address] [place], [address] GFR/1.73 sq M.predicted among non-blacks MDRD (S/P/Bld) [Vol rate/Area] 98 mL/min/{1.73_m2} Normal >60 [facility] Comment on above: Result Comment: mL/m in/1.73m2 CKD-EPI Creatinine Equation (2020) Performed By: #### L 100.0100, L500.4050, L501.2300, L501.9520 ####[facility] [address] [place], [address] Globulin (S) [Mass/Vol] 2.7 g/dL Normal 2.2-4.2 [facility] Comment on above: Performed By: #### L 100.0100, L500.4050, L501.2300, L501.9520 ####[facility] [address] [place], [address] Glucose [Mass/Vol] 198 mg/dL High 70-99 [facility] Comment on above: Performed By: #### L 100.0100, L500.4050, L501.2300, L501.9520 ####[facility] [address] [place], [address] Potassium [Moles/Vol] 3.9 mmol/L Normal 3.3-5.1 [facility] Comment on above: Performed By: #### L 100.0100, L500.4050, L501.2300, L501.9520 ####[facility] [address] [place], [address] Sodium [Moles/Vol] 141 mmol/L Normal 133-145 [facility] Comment on above: Performed By: #### L 100.0100, L500.4050, L501.2300, L501.9520 ####[facility] [address] [place], [address] T PROT 6.3 g/dL Normal 5.9-8.4 [facility] Comment on above: Performed By: #### L 100.0100, L500.4050, L501.2300, L501.9520 ####[facility] [address] [place], [address] Urea nitrogen [Mass/Vol] 10 mg/dL Normal 4-19 [facility] Comment on above: Performed By: #### L 100.0100, L500.4050, L501.2300, L501.9520 ####[facility] [address] [place], [address] Eosinophil percentageOrdered By: Shannan Waldrop on 11-23-2024 Eosinophils/100 WBC (Bld) 2.4 % 0-5 [facility] Erythrocyte distribution wid th (RBC) [Ratio]Ordered By: Shannan Waldrop on 11-23-2024 Erythrocyte distribution width (RBC) [Entitic vol] 57.4 fL High 35.1-43.9 [facility] Erythrocyte distribution wid th ratioOrdered By: [facility] on 11-23-2024 Erythrocyte distribution width (RBC) [Ratio] 18.0 % High 11.6-14.6 [facility] Estimation of creatinine vinh aranceOrdered By: Shannan Waldrop on 11-23-2024 Estimated Creatinine Clearance Calc 64.37 ml/min 50-250 [facility] GFR/1.73 sq M.predicted shakir g non-blacks MDRD (S/P/Bld) [Vol rate/Area]Ordered By: Shannan Waldrop on 11-23-2024 Estimated GFR (MDRD) Non-Af Amer 98 >60 [facility] Comment on above: mL/min/1.73m2 CKD-EP I Creatinine Equation (2020) Hematocrit Auto (Bld) [Volum e fraction]Ordered By: Shannan Waldrop on 11-23-2024 Hematocrit (Bld) [Volume fraction] 32.5 % Low 37-47 [facility] Hemoglobin measurementOrdere d By: Shannan Waldrop on 11-23-2024 Hemoglobin (Bld) [Mass/Vol] 10.0 g/dL Low 12.0-15.0 [facility] Immature granulocytes/100 WB C Auto (Bld)Ordered By: Shannan Waldrop on 11-23-2024 Immature granulocytes/100 WBC (Bld) 0.400 % 0.0-0.9 [facility] Comment on above: IG% - Immature Granu locytes (promyelocytes, myelocytes and metamyelocytes) > 1% indicates that a LEFT SHIFT is Present. Laboratory - Chemistry and C hemistry - challengeOrdered By: Shannan Waldrop on 11-23-2024 AST [Catalytic activity/Vol] 18 U/L <32 [facility] Lymphocytes Auto (Unsp spec) [#/Vol]Ordered By: Shannan Waldrop on 11-23-2024 Lymphocytes (Bld) [#/Vol] 1.17 10*3/uL 0.83-4.5 1 [facility] Lymphocytes/100 WBC Auto (Un sp spec)Ordered By: Shannan Waldrop on 11-23-2024 Lymphocytes/100 WBC (Bld) 17.5 % Low 19-41 [facility] MCV (mean corpuscular volume ) determinationOrdered By: Shannan Waldrop on 11-23-2024 MCV (RBC) [Entitic vol] 87.1 fL 81-99 [facility] Mean corpuscular hemoglobin (MCH) determinationOrdered By: Shannan Waldrop on 11-23-2024 MCH (RBC) [Entitic mass] 26.8 pg Low 27.0-32.0 [facility] Mean corpuscular hemoglobin concentration (MCHC) determinationOrdered By: Shannan Waldrop on 11-23-2024 MCHC (RBC) [Mass/Vol] 30.8 g/dL Low 32-36 [facility] Mean platelet volume determi nationOrdered By: Shannan Waldrop on 11-23-2024 Platelet mean volume (Bld) [Entitic vol] 8.7 fL 6.2-12.0 [facility] Monocyte percentageOrdered B y: Shannan Waldrop on 11-23-2024 Monocytes/100 WBC (Bld) 17.2 % High 0-10 [facility] Neutrophil percentageOrdered By: Shannan Waldrop on 11-23-2024 Neutrophils/100 WBC (Bld) 62.1 % 47-70 [facility] Nucleated red blood cell per centageOrdered By: Shannan Waldrop on 11-23-2024 Nucleated RBC/100 WBC (Bld) [Ratio] 0 % 0-5 [facility] Oncology Visit Reporton Oncology Visit Report Normal [facility] Phosphoruson 11-23-2024 Phosphate [Mass/Vol] 3.3 mg/dL Normal 2.7-4.5 [facility] Comment on above: Performed By: #### L 100.0100, L500.4050, L501.2300, L501.9520 ####[facility] [address] [place], [address] Platelet countOrdered By: Adriana Waldrop on 11-23-2024 Platelets (Bld) [#/Vol] 310 10*3/uL 150-450 [facility] Potassium (Unsp spec) [Mass/ Vol]Ordered By: Shannan Waldrop on 11-23-2024 Potassium [Moles/Vol] 3.9 mmol/L 3.3-5.1 [facility] RBC Auto (Bld) [#/Vol]Ordere d By: Shannan Waldrop on 11-23-2024 RBC (Bld) [#/Vol] 3.73 10*6/uL Low 4.2-5.4 [facility] Serum creatinine measurement (mass/volume)Ordered By: Shannan Waldrop on 11-23-2024 Creatinine [Mass/Vol] 0.57 mg/dL Low 0.70-1.20 [facility] Serum globulin measurementOr dered By: Shannan Waldrop on 11-23-2024 Globulin (S) [Mass/Vol] 2.7 g/dL 2.2-4.2 [facility] Serum glucose measurement (m ass/volume)Ordered By: Shannan Waldrop on 11-23-2024 Glucose [Mass/Vol] 198 mg/dL High 70-99 [facility] Serum or plasma alanine amezquita otransferase (ALT) measurementOrdered By: Shannan Waldrop on 11-23-2024 ALT [Catalytic activity/Vol] 16 U/L <35 [facility] Serum or plasma albumin joaquin urement (mass/volume)Ordered By: Shannan Waldrop on 11-23-2024 Albumin [Mass/Vol] 3.6 g/dL 3.4-4.8 [facility] Serum or plasma albumin/glob ulin mass ratioOrdered By: Shannan Waldrop on 11-23-2024 Albumin/Globulin [Mass ratio] 1.3 {ratio} 0.9-2.4 [facility] Serum or plasma alkaline gumaro sphatase measurementOrdered By: Shannan Waldrop on 11-23-2024 ALP [Catalytic activity/Vol] 78 U/L 35-104 [facility] Serum or plasma calcium joaquin urement (mass/volume)Ordered By: Shannan Waldrop on 11-23-2024 Calcium [Mass/Vol] 9.0 mg/dL 7.6-11.0 [facility] Serum or plasma urea nitroge n measurement (mass/volume)Ordered By: Shannan Waldrop on 11-23-2024 Urea nitrogen [Mass/Vol] 10 mg/dL 4-19 [facility] Serum phosphorus measurement Ordered By: Shannan Waldrop on 11-23-2024 Phosphorus Level 3.3 mg/dL 2.7-4.5 [facility] Sodium levelOrdered By: Spring Waldrop on 11-23-2024 Sodium [Moles/Vol] 141 mmol/L 133-145 [facility] TSH DL <= 0.005 mIU/L QnOrde red By: Shannan Waldrop on 11-23-2024 Thyroid Stimulating Hormone (TSH) 0.014 uIU/mL Low 0.300-4.200 [facility] Thyroid Stim Hormone (TSH)on 11-23-2024 TSH 0.014 uIU/mL Low 0.300-4.200 [facility] Comment on above: Performed By: #### L 100.0100, L500.4050, L501.2300, L501.9520 ####[facility] [address] [place], [address] Total proteinOrdered By: Howard Waldrop on 11-23-2024 Protein [Mass/Vol] 6.3 g/dL 5.9-8.4 [facility] White blood cell (WBC) count Ordered By: Shannan Jorgito on 11-23-2024 WBC (Bld) [#/Vol] 6.7 10*3/uL 4.4-11.0 [facility] MR/BMS.BVSon 11-10-2024 MR/BMS.BVS Normal [facility] CBC W/Diff, Automatedon 10-16 Absolute Neut Normal 2.0-7.7 [facility] Comment on above: Result Comment: NOT COLLECTED Performed By: #### L 100.0100, L501.2300, L500.4050, L501.9520 ####[facility] [address] [place], [address] HCT Normal 37-47 [facility] Comment on above: Result Comment: NOT COLLECTED Performed By: #### L 100.0100, L501.2300, L500.4050, L501.9520 ####[facility] [address] [place], [address] HGB Normal 12.0-15.0 [facility] Comment on above: Result Comment: NOT COLLECTED Performed By: #### L 100.0100, L501.2300, L500.4050, L501.9520 ####[facility] [address] [place], [address] MCH Normal 27.0-32.0 [facility] Comment on above: Result Comment: NOT COLLECTED Performed By: #### L 100.0100, L501.2300, L500.4050, L501.9520 ####[facility] [address] [place], [address] MCHC Normal 32-36 [facility] Comment on above: Result Comment: NOT COLLECTED Performed By: #### L 100.0100, L501.2300, L500.4050, L501.9520 ####[facility] [address] [place], [address] MCV Normal 81-99 [facility] Comment on above: Result Comment: NOT COLLECTED Performed By: #### L 100.0100, L501.2300, L500.4050, L501.9520 ####[facility] [address] [place], [address] NEUT% Normal 47-70 [facility] Comment on above: Result Comment: NOT COLLECTED Performed By: #### L 100.0100, L501.2300, L500.4050, L501.9520 ####[facility] [address] [place], [address] PLT Normal 150-450 [facility] Comment on above: Result Comment: NOT COLLECTED Performed By: #### L 100.0100, L501.2300, L500.4050, L501.9520 ####[facility] [address] [place], [address] RBC Normal 4.2-5.4 [facility] Comment on above: Result Comment: NOT COLLECTED Performed By: #### L 100.0100, L501.2300, L500.4050, L501.9520 ####[facility] [address] [place], [address] RDW CV Normal 11.6-14.6 [facility] Comment on above: Result Comment: NOT COLLECTED Performed By: #### L 100.0100, L501.2300, L500.4050, L501.9520 ####[facility] [address] [place], [address] RDW SD Normal 35.1-43.9 [facility] Comment on above: Result Comment: NOT COLLECTED Performed By: #### L 100.0100, L501.2300, L500.4050, L501.9520 ####[facility] [address] [place], [address] WBC Normal 4.4-11.0 [facility] Comment on above: Result Comment: NOT COLLECTED Performed By: #### L 100.0100, L501.2300, L500.4050, L501.9520 ####[facility] [address] [place], [address] Comprehensive Metabolic Prof ilon 11-02-2024 Albumin [Mass/Vol] 3.7 g/dL Normal 3.4-4.8 [facility] Comment on above: Performed By: #### L 100.0100, L501.2300, L500.4050, L501.9520 ####[facility] [address] [place], [address] Albumin/Globulin [Mass ratio] 1.2 {ratio} Normal 0.9-2.4 [facility] Comment on above: Performed By: #### L 100.0100, L501.2300, L500.4050, L501.9520 ####[facility] [address] [place], [address] ALK PHOS 87 U/L Normal 35-104 [facility] Comment on above: Performed By: #### L 100.0100, L501.2300, L500.4050, L501.9520 ####[facility] [address] [place], [address] ALT [Catalytic activity/Vol] 14 U/L Normal <=34 [facility] Comment on above: Performed By: #### L 100.0100, L501.2300, L500.4050, L501.9520 ####[facility] [address] [place], [address] AST [Catalytic activity/Vol] 19 U/L Normal <=31 [facility] Comment on above: Performed By: #### L 100.0100, L501.2300, L500.4050, L501.9520 ####[facility] [address] [place], [address] Bilirubin [Mass/Vol] 0.27 mg/dL Normal 0.00-1.30 [facility] Comment on above: Performed By: #### L 100.0100, L501.2300, L500.4050, L501.9520 ####[facility] [address] [place], [address] BUN/CRE 21.1 RATIO High 10-20 [facility] Comment on above: Performed By: #### L 100.0100, L501.2300, L500.4050, L501.9520 ####[facility] [address] [place], [address] Calcium [Mass/Vol] 9.3 mg/dL Normal 7.6-11.0 [facility] Comment on above: Performed By: #### L 100.0100, L501.2300, L500.4050, L501.9520 ####[facility] [address] [place], [address] Chloride [Moles/Vol] 104 mmol/L Normal 98-108 [facility] Comment on above: Performed By: #### L 100.0100, L501.2300, L500.4050, L501.9520 ####[facility] [address] [place], [address] CO2 [Moles/Vol] 20.6 mmol/L Low 21.0-32.0 [facility] Comment on above: Performed By: #### L 100.0100, L501.2300, L500.4050, L501.9520 ####[facility] [address] [place], [address] Creatinine [Mass/Vol] 0.57 mg/dL Low 0.70-1.20 [facility] Comment on above: Performed By: #### L 100.0100, L501.2300, L500.4050, L501.9520 ####[facility] [address] [place], [address] ECRCL 64.55 ml/min Normal 50-250 [facility] Comment on above: Performed By: #### L 100.0100, L501.2300, L500.4050, L501.9520 ####[facility] [address] [place], [address] GAP 13 Normal 5-15 [facility] Comment on above: Performed By: #### L 100.0100, L501.2300, L500.4050, L501.9520 ####[facility] [address] [place], [address] GFR/1.73 sq M.predicted among non-blacks MDRD (S/P/Bld) [Vol rate/Area] 98 mL/min/{1.73_m2} Normal >60 [facility] Comment on above: Result Comment: mL/m in/1.73m2 CKD-EPI Creatinine Equation (2020) Performed By: #### L 100.0100, L501.2300, L500.4050, L501.9520 ####[facility] [address] [place], [address] Globulin (S) [Mass/Vol] 3.0 g/dL Normal 2.2-4.2 [facility] Comment on above: Performed By: #### L 100.0100, L501.2300, L500.4050, L501.9520 ####[facility] [address] [place], [address] Glucose [Mass/Vol] 167 mg/dL High 70-99 [facility] Comment on above: Performed By: #### L 100.0100, L501.2300, L500.4050, L501.9520 ####[facility] [address] [place], [address] Potassium [Moles/Vol] 4.1 mmol/L Normal 3.3-5.1 [facility] Comment on above: Performed By: #### L 100.0100, L501.2300, L500.4050, L501.9520 ####[facility] [address] [place], [address] Sodium [Moles/Vol] 137 mmol/L Normal 133-145 [facility] Comment on above: Performed By: #### L 100.0100, L501.2300, L500.4050, L501.9520 ####[facility] [address] [place], [address] T PROT 6.6 g/dL Normal 5.9-8.4 [facility] Comment on above: Performed By: #### L 100.0100, L501.2300, L500.4050, L501.9520 ####[facility] [address] [place], [address] Urea nitrogen [Mass/Vol] 12 mg/dL Normal 4-19 [facility] Comment on above: Performed By: #### L 100.0100, L501.2300, L500.4050, L501.9520 ####[facility] [address] [place], [address] L509.6001on 11-02-2024 CORTISOL 15.40 ug/dL Normal 6.02-18.40 [facility] Comment on above: Performed By: #### L 506.0400, L509.6001, L501.5200 ####[facility] [address] [place], [address] Magnesiumon 11-02-2024 Magnesium [Mass/Vol] 1.6 mg/dL Normal 1.5-2.2 [facility] Comment on above: Performed By: #### L 506.0400, L509.6001, L501.5200 ####[facility] [address] [place], [address] Magnesium (Unsp spec) [Mass/ Vol]Ordered By: Shannan Waldrop on 11-02-2024 Magnesium [Mass/Vol] 1.6 mg/dL 1.5-2.2 [facility] Magnesium measurement (mass/ volume)Ordered By: Shannan Waldrop on 11-02-2024 Magnesium (Unsp spec) [Mass/Vol] 1.6 mg/dL 1.5-2.2 [facility] No Panel InformationOrdered By: Shannan Waldrop on 11-02-2024 Cortisol AM Sample 15.40 ug/dL 6.02-18.40 [facility] Oncology Visit Reporton 10-16 Oncology Visit Report Normal [facility] Phosphoruson 11-02-2024 Phosphate [Mass/Vol] 2.9 mg/dL Normal 2.7-4.5 [facility] Comment on above: Performed By: #### L 100.0100, L501.2300, L500.4050, L501.9520 ####[facility] [address] [place], [address] T4 Free Directon 11-02-2024 T4 FREE DIRECT 2.00 ng/dL High 0.76-1.46 [facility] Comment on above: Performed By: #### L 506.0400, L509.6001, L501.5200 ####[facility] [address] [place], [address] T4 freeOrdered By: Shannan julio on 11-02-2024 Free T4 [Mass/Vol] 2.00 ng/dL High 0.76-1.46 [facility] Thyroid Stim Hormone (TSH)on 11-02-2024 TSH 0.045 uIU/mL Low 0.300-4.200 [facility] Comment on above: Performed By: #### L 100.0100, L501.2300, L500.4050, L501.9520 ####[facility] [address] [place], [address] L503.0106on 10-13-2024 Cobalamin (Vitamin B12) [Mass/Vol] 409 pg/mL Normal 180-914 [facility] Comment on above: Order Comment: HÉCTOR Lovell ADD ON TO BLOOD IN LAB. THANK YOU!! Performed By: #### L 503.0106 ####[facility] [address] [place], [address] Phosphoruson 10-13-2024 Phosphate [Mass/Vol] 3.1 mg/dL Normal 2.7-4.5 [facility] Comment on above: Performed By: #### L 501.9520, L501.2300, L100.0100 ####[facility] [address] [place], [address] Thyroid Stim Hormone (TSH)on 10-13-2024 TSH 0.196 uIU/mL Low 0.300-4.200 [facility] Comment on above: Performed By: #### L 501.9520, L501.2300, L100.0100 ####[facility] [address] [place], [address] CBC W/Diff, Automatedon 09-19 Absolute Lymph 0.92 X10 3/uL Normal 0.83-4.51 [facility] Comment on above: Performed By: #### L 501.9520, L501.2300, L100.0100 ####[facility] [address] [place], [address] Absolute Neut 4.8 X10 3/uL Normal 2.0-7.7 [facility] Comment on above: Performed By: #### L 501.9520, L501.2300, L100.0100 ####[facility] [address] [place], [address] Basophils/100 WBC (Bld) 0.6 % Normal 0-1 [facility] Comment on above: Performed By: #### L 501.9520, L501.2300, L100.0100 ####[facility] [address] [place], [address] Eosinophils/100 WBC (Bld) 3.3 % Normal 0-5 [facility] Comment on above: Performed By: #### L 501.9520, L501.2300, L100.0100 ####[facility] [address] [place], [address] Erythrocyte distribution width (RBC) [Ratio] 19.1 % High 11.6-14.6 [facility] Comment on above: Performed By: #### L 501.9520, L501.2300, L100.0100 ####[facility] [address] [place], [address] Hematocrit (Bld) [Volume fraction] 33.3 % Low 37-47 [facility] Comment on above: Performed By: #### L 501.9520, L501.2300, L100.0100 ####[facility] [address] [place], [address] Hemoglobin (Bld) [Mass/Vol] 10.3 g/dL Low 12.0-15.0 [facility] Comment on above: Performed By: #### L 501.9520, L501.2300, L100.0100 ####[facility] [address] [place], [address] IG% 0.300 Normal 0.0-0.9 [facility] Comment on above: Result Comment: IG% - Immature Granulocytes (promyelocytes, myelocytes andmetamyelocytes) > 1% indicates that a LEFT SHIFT is Present. Performed By: #### L 501.9520, L501.2300, L100.0100 ####[facility] [address] [place], [address] Lymphocytes/100 WBC (Bld) 13.4 % Low 19-41 [facility] Comment on above: Performed By: #### L 501.9520, L501.2300, L100.0100 ####[facility] [address] [place], [address] MCH (RBC) [Entitic mass] 27.6 pg Normal 27.0-32.0 [facility] Comment on above: Performed By: #### L 501.9520, L501.2300, L100.0100 ####[facility] [address] [place], [address] MCHC (RBC) [Mass/Vol] 30.9 g/dL Low 32-36 [facility] Comment on above: Performed By: #### L 501.9520, L501.2300, L100.0100 ####[facility] [address] [place], [address] MCV (RBC) [Entitic vol] 89.3 fL Normal 81-99 [facility] Comment on above: Performed By: #### L 501.9520, L501.2300, L100.0100 ####[facility] [address] [place], [address] Monocytes/100 WBC (Bld) 12.2 % High 0-10 [facility] Comment on above: Performed By: #### L 501.9520, L501.2300, L100.0100 ####[facility] [address] [place], [address] Neutrophils/100 WBC (Bld) 70.2 % High 47-70 [facility] Comment on above: Performed By: #### L 501.9520, L501.2300, L100.0100 ####[facility] [address] [place], [address] Nucleated RBC (Bld) [#/Vol] 0 10*3/uL Normal 0-5 [facility] Comment on above: Performed By: #### L 501.9520, L501.2300, L100.0100 ####[facility] [address] [place], [address] Platelet mean volume (Bld) [Entitic vol] 9.1 fL Normal 6.2-12.0 [facility] Comment on above: Performed By: #### L 501.9520, L501.2300, L100.0100 ####[facility] [address] [place], [address] Platelets (Bld) [#/Vol] 250 10*3/uL Normal 150-450 [facility] Comment on above: Performed By: #### L 501.9520, L501.2300, L100.0100 ####[facility] [address] [place], [address] RBC (Bld) [#/Vol] 3.73 10*6/uL Low 4.2-5.4 [facility] Comment on above: Performed By: #### L 501.9520, L501.2300, L100.0100 ####[facility] [address] [place], [address] RDW SD 63.1 fl High 35.1-43.9 [facility] Comment on above: Performed By: #### L 501.9520, L501.2300, L100.0100 ####[facility] [address] [place], [address] WBC (Bld) [#/Vol] 6.9 10*3/uL Normal 4.4-11.0 [facility] Comment on above: Performed By: #### L 501.9520, L501.2300, L100.0100 ####[facility] [address] [place], [address] Comprehensive Metabolic Prof ilon 10-12-2024 Albumin [Mass/Vol] 3.7 g/dL Normal 3.4-4.8 [facility] Comment on above: Performed By: #### L 500.4050 ####[facility] [address] [place], [address] Albumin/Globulin [Mass ratio] 1.3 {ratio} Normal 0.9-2.4 [facility] Comment on above: Performed By: #### L 500.4050 ####[facility] [address] [place], [address] ALK PHOS 78 U/L Normal 35-104 [facility] Comment on above: Performed By: #### L 500.4050 ####[facility] [address] [place], [address] ALT [Catalytic activity/Vol] 10 U/L Normal <=34 [facility] Comment on above: Performed By: #### L 500.4050 ####[facility] [address] [place], [address] Anion gap [Moles/Vol] 15 mmol/L Normal 5-15 [facility] Comment on above: Performed By: #### L 500.4050 ####[facility] [address] [place], [address] AST [Catalytic activity/Vol] 17 U/L Normal <=31 [facility] Comment on above: Performed By: #### L 500.4050 ####[facility] [address] [place], [address] Bilirubin [Mass/Vol] 0.25 mg/dL Normal 0.00-1.30 [facility] Comment on above: Performed By: #### L 500.4050 ####[facility] [address] [place], [address] BUN/CRE 27.0 RATIO High 10-20 [facility] Comment on above: Performed By: #### L 500.4050 ####[facility] [address] [place], [address] Calcium [Mass/Vol] 9.0 mg/dL Normal 7.6-11.0 [facility] Comment on above: Performed By: #### L 500.4050 ####[facility] [address] [place], [address] Chloride [Moles/Vol] 103 mmol/L Normal 96-108 [facility] Comment on above: Performed By: #### L 500.4050 ####[facility] [address] [place], [address] CO2 [Moles/Vol] 19.7 mmol/L Low 22.0-29.0 [facility] Comment on above: Performed By: #### L 500.4050 ####[facility] [address] [place], [address] Creatinine [Mass/Vol] 0.6 mg/dL Normal 0.6-1.0 [facility] Comment on above: Performed By: #### L 500.4050 ####[facility] [address] [place], [address] ECRCL 65.27 ml/min Normal [facility] Comment on above: Performed By: #### L 500.4050 ####[facility] [address] [place], [address] GFR/1.73 sq M.predicted among non-blacks MDRD (S/P/Bld) [Vol rate/Area] 98 mL/min/{1.73_m2} Normal >60 [facility] Comment on above: Result Comment: mL/m in/1.73m2 CKD-EPI Creatinine Equation (2020) Performed By: #### L 500.4050 ####[facility] [address] [place], [address] Globulin (S) [Mass/Vol] 2.9 g/dL Normal 2.2-4.2 [facility] Comment on above: Performed By: #### L 500.4050 ####[facility] [address] [place], [address] Glucose [Mass/Vol] 278 mg/dL High 70-99 [facility] Comment on above: Performed By: #### L 500.4050 ####[facility] [address] [place], [address] Potassium [Moles/Vol] 4.0 mmol/L Normal 3.3-5.1 [facility] Comment on above: Performed By: #### L 500.4050 ####[facility] [address] [place], [address] Sodium [Moles/Vol] 137 mmol/L Normal 133-145 [facility] Comment on above: Performed By: #### L 500.4050 ####[facility] [address] [place], [address] T PROT 6.6 g/dL Normal 5.9-8.4 [facility] Comment on above: Performed By: #### L 500.4050 ####[facility] [address] [place], [address] Urea nitrogen [Mass/Vol] 16 mg/dL Normal 4-19 [facility] Comment on above: Performed By: #### L 500.4050 ####[facility] [address] [place], [address] Laboratory - Chemistry and C hemistry - challengeOrdered By: Shannan Waldrop on 10-12-2024 Cobalamin (Vitamin B12) [Mass/Vol] 409 pg/mL 180-914 [facility] Oncology Visit Reporton 09-19 Oncology Visit Report Normal [facility] Blood manual differential co mment interpretation (narrative result)Ordered By: Shannan Waldrop on 09-21-2024 Manual differential comment Kuldip (Bld) [Interp] SCANNED [facility] CBC W/Diff, Automatedon Anisocytosis Ql (Bld) 2+ Normal [facility] Comment on above: Performed By: #### L 501.9520, L501.5200, L501.2300, L500.4050, L100.0100, L506.0400 ####[facility] [address] [place], [address] OVALOCYTE 2+ Normal [facility] Comment on above: Performed By: #### L 501.9520, L501.5200, L501.2300, L500.4050, L100.0100, L506.0400 ####[facility] [address] [place], [address] TEAR DROP RARE Normal [facility] Comment on above: Performed By: #### L 501.9520, L501.5200, L501.2300, L500.4050, L100.0100, L506.0400 ####[facility] [address] [place], [address] PLT EST ADEQUATE Normal ADEQ [facility] Comment on above: Performed By: #### L 501.9520, L501.5200, L501.2300, L500.4050, L100.0100, L506.0400 ####[facility] [address] [place], [address] SMEAR COMMENT SCANNED Normal [facility] Comment on above: Performed By: #### L 501.9520, L501.5200, L501.2300, L500.4050, L100.0100, L506.0400 ####[facility] [address] [place], [address] Absolute Neut Normal 2.0-7.7 [facility] Comment on above: Result Comment: DUPL ICATED TO INTERNAL ORDERS Performed By: #### L 500.4050, L100.0100 ####[facility] [address] [place], [address] HCT Normal 37-47 [facility] Comment on above: Result Comment: DUPL ICATED TO INTERNAL ORDERS Performed By: #### L 500.4050, L100.0100 ####[facility] [address] [place], [address] HGB Normal 12.0-15.0 [facility] Comment on above: Result Comment: DUPL ICATED TO INTERNAL ORDERS Performed By: #### L 500.4050, L100.0100 ####[facility] [address] [place], [address] MCH Normal 27.0-32.0 [facility] Comment on above: Result Comment: DUPL ICATED TO INTERNAL ORDERS Performed By: #### L 500.4050, L100.0100 ####[facility] [address] [place], [address] MCHC Normal 32-36 [facility] Comment on above: Result Comment: DUPL ICATED TO INTERNAL ORDERS Performed By: #### L 500.4050, L100.0100 ####[facility] [address] [place], [address] MCV Normal 81-99 [facility] Comment on above: Result Comment: DUPL ICATED TO INTERNAL ORDERS Performed By: #### L 500.4050, L100.0100 ####[facility] [address] [place], [address] NEUT% Normal 47-70 [facility] Comment on above: Result Comment: DUPL ICATED TO INTERNAL ORDERS Performed By: #### L 500.4050, L100.0100 ####[facility] [address] [place], [address] PLT Normal 150-450 [facility] Comment on above: Result Comment: DUPL ICATED TO INTERNAL ORDERS Performed By: #### L 500.4050, L100.0100 ####[facility] [address] [place], [address] RBC Normal 4.2-5.4 [facility] Comment on above: Result Comment: DUPL ICATED TO INTERNAL ORDERS Performed By: #### L 500.4050, L100.0100 ####[facility] [address] [place], [address] RDW CV Normal 11.6-14.6 [facility] Comment on above: Result Comment: DUPL ICATED TO INTERNAL ORDERS Performed By: #### L 500.4050, L100.0100 ####[facility] [address] [place], [address] RDW SD Normal 35.1-43.9 [facility] Comment on above: Result Comment: DUPL ICATED TO INTERNAL ORDERS Performed By: #### L 500.4050, L100.0100 ####[facility] [address] [place], [address] WBC Normal 4.4-11.0 [facility] Comment on above: Result Comment: DUPL ICATED TO INTERNAL ORDERS Performed By: #### L 500.4050, L100.0100 ####[facility] [address] [place], [address] Comprehensive Metabolic Prof ilon 09-21-2024 Albumin [Mass/Vol] 3.3 g/dL Normal 3.2-5.0 [facility] Comment on above: Performed By: #### L 501.9520, L501.5200, L501.2300, L500.4050, L100.0100, L506.0400 ####[facility] [address] [place], [address] Albumin/Globulin [Mass ratio] 0.9 {ratio} Normal 0.9-2.4 [facility] Comment on above: Performed By: #### L 501.9520, L501.5200, L501.2300, L500.4050, L100.0100, L506.0400 ####[facility] [address] [place], [address] ALK P 72 U/L Normal 45-117 [facility] Comment on above: Performed By: #### L 501.9520, L501.5200, L501.2300, L500.4050, L100.0100, L506.0400 ####[facility] [address] [place], [address] ALT [Catalytic activity/Vol] 16 U/L Normal 13-56 [facility] Comment on above: Performed By: #### L 501.9520, L501.5200, L501.2300, L500.4050, L100.0100, L506.0400 ####[facility] [address] [place], [address] AST [Catalytic activity/Vol] 14 U/L Low 15-37 [facility] Comment on above: Performed By: #### L 501.9520, L501.5200, L501.2300, L500.4050, L100.0100, L506.0400 ####[facility] [address] [place], [address] Bilirubin [Mass/Vol] 0.40 mg/dL Normal 0.20-1.00 [facility] Comment on above: Result Comment: For patients on eltrombopag therapy, use of Dimension [employer] [facility] TBIL is not recommended. Performed By: #### L 501.9520, L501.5200, L501.2300, L500.4050, L100.0100, L506.0400 ####[facility] [address] [place], [address] BUN/CRE 22.2 RATIO High 10-20 [facility] Comment on above: Performed By: #### L 501.9520, L501.5200, L501.2300, L500.4050, L100.0100, L506.0400 ####[facility] [address] [place], [address] CA,Total 9.4 mg/dL Normal 8.5-10.1 [facility] Comment on above: Performed By: #### L 501.9520, L501.5200, L501.2300, L500.4050, L100.0100, L506.0400 ####[facility] [address] [place], [address] Chloride [Moles/Vol] 106 mmol/L Normal 98-107 [facility] Comment on above: Performed By: #### L 501.9520, L501.5200, L501.2300, L500.4050, L100.0100, L506.0400 ####[facility] [address] [place], [address] CO2 [Moles/Vol] 26.0 mmol/L Normal 21.0-32.0 [facility] Comment on above: Performed By: #### L 501.9520, L501.5200, L501.2300, L500.4050, L100.0100, L506.0400 ####[facility] [address] [place], [address] Creatinine [Mass/Vol] 0.72 mg/dL Normal 0.55-1.02 [facility] Comment on above: Result Comment: The validity of the calculated GFR GFRAA in patients over70 years has not been determined. Clinical correlation isessential. Performed By: #### L 501.9520, L501.5200, L501.2300, L500.4050, L100.0100, L506.0400 ####[facility] [address] [place], [address] ECRCL 65.28 ml/min Normal [facility] Comment on above: Performed By: #### L 501.9520, L501.5200, L501.2300, L500.4050, L100.0100, L506.0400 ####[facility] [address] [place], [address] EST GFR - AA 103 mL/min Normal >60 [facility] Comment on above: Result Comment: Afri can Nigerian GFR Calc Performed By: #### L 501.9520, L501.5200, L501.2300, L500.4050, L100.0100, L506.0400 ####[facility] [address] [place], [address] GAP 7 Normal 5-15 [facility] Comment on above: Performed By: #### L 501.9520, L501.5200, L501.2300, L500.4050, L100.0100, L506.0400 ####[facility] [address] [place], [address] GFR/1.73 sq M.predicted among non-blacks MDRD (S/P/Bld) [Vol rate/Area] 85 mL/min/{1.73_m2} Normal >60 [facility] Comment on above: Result Comment: Non- GFR Calc Performed By: #### L 501.9520, L501.5200, L501.2300, L500.4050, L100.0100, L506.0400 ####[facility] [address] [place], [address] Globulin (S) [Mass/Vol] 3.8 g/dL Normal 2.2-4.2 [facility] Comment on above: Performed By: #### L 501.9520, L501.5200, L501.2300, L500.4050, L100.0100, L506.0400 ####[facility] [address] [place], [address] Glucose [Mass/Vol] 127 mg/dL High 74-106 [facility] Comment on above: Result Comment: Fast ing Glucose result greater than or equal to 126 mg/dLsuggests DIABETES MELLITUS per A.D.A. criteria. Performed By: #### L 501.9520, L501.5200, L501.2300, L500.4050, L100.0100, L506.0400 ####[facility] [address] [place], [address] Potassium [Moles/Vol] 4.2 mmol/L Normal 3.5-5.1 [facility] Comment on above: Performed By: #### L 501.9520, L501.5200, L501.2300, L500.4050, L100.0100, L506.0400 ####[facility] [address] [place], [address] Sodium [Moles/Vol] 140 mmol/L Normal 136-145 [facility] Comment on above: Performed By: #### L 501.9520, L501.5200, L501.2300, L500.4050, L100.0100, L506.0400 ####[facility] [address] [place], [address] T PROT 7.1 g/dL Normal 6.4-8.2 [facility] Comment on above: Performed By: #### L 501.9520, L501.5200, L501.2300, L500.4050, L100.0100, L506.0400 ####[facility] [address] [place], [address] Urea nitrogen [Mass/Vol] 16 mg/dL Normal 7-18 [facility] Comment on above: Performed By: #### L 501.9520, L501.5200, L501.2300, L500.4050, L100.0100, L506.0400 ####[facility] [address] [place], [address] ALB Normal 3.2-5.0 [facility] Comment on above: Result Comment: DUPL ICATED TO INTERNAL ORDERS Performed By: #### L 500.4050, L100.0100 ####[facility] [address] [place], [address] ALK P Normal 45-117 [facility] Comment on above: Result Comment: DUPL ICATED TO INTERNAL ORDERS Performed By: #### L 500.4050, L100.0100 ####[facility] [address] [place], [address] ALT Normal 13-56 [facility] Comment on above: Result Comment: DUPL ICATED TO INTERNAL ORDERS Performed By: #### L 500.4050, L100.0100 ####[facility] [address] [place], [address] AST Normal 15-37 [facility] Comment on above: Result Comment: DUPL ICATED TO INTERNAL ORDERS Performed By: #### L 500.4050, L100.0100 ####[facility] [address] [place], [address] BUN Normal 7-18 [facility] Comment on above: Result Comment: DUPL ICATED TO INTERNAL ORDERS Performed By: #### L 500.4050, L100.0100 ####[facility] [address] [place], [address] BUN/CRE Normal 10-20 [facility] Comment on above: Result Comment: DUPL ICATED TO INTERNAL ORDERS Performed By: #### L 500.4050, L100.0100 ####[facility] [address] [place], [address] CA,Total Normal 8.5-10.1 [facility] Comment on above: Result Comment: DUPL ICATED TO INTERNAL ORDERS Performed By: #### L 500.4050, L100.0100 ####[facility] [address] [place], [address] CL Normal 98-107 [facility] Comment on above: Result Comment: DUPL ICATED TO INTERNAL ORDERS Performed By: #### L 500.4050, L100.0100 ####[facility] [address] [place], [address] CO2 Normal 21.0-32.0 [facility] Comment on above: Result Comment: DUPL ICATED TO INTERNAL ORDERS Performed By: #### L 500.4050, L100.0100 ####[facility] [address] [place], [address] CREAT,SERUM Normal 0.55-1.02 [facility] Comment on above: Result Comment: DUPL ICATED TO INTERNAL ORDERS Performed By: #### L 500.4050, L100.0100 ####[facility] [address] [place], [address] EST GFR Normal >60 [facility] Comment on above: Result Comment: DUPL ICATED TO INTERNAL ORDERS Performed By: #### L 500.4050, L100.0100 ####[facility] [address] [place], [address] EST GFR - AA Normal >60 [facility] Comment on above: Result Comment: DUPL ICATED TO INTERNAL ORDERS Performed By: #### L 500.4050, L100.0100 ####[facility] [address] [place], [address] GAP Normal 5-15 [facility] Comment on above: Result Comment: DUPL ICATED TO INTERNAL ORDERS Performed By: #### L 500.4050, L100.0100 ####[facility] [address] [place], [address] GLU Normal 74-106 [facility] Comment on above: Result Comment: DUPL ICATED TO INTERNAL ORDERS Performed By: #### L 500.4050, L100.0100 ####[facility] [address] [place], [address] Potassium Normal 3.5-5.1 [facility] Comment on above: Result Comment: DUPL ICATED TO INTERNAL ORDERS Performed By: #### L 500.4050, L100.0100 ####[facility] [address] [place], [address] T BILI Normal 0.20-1.00 [facility] Comment on above: Result Comment: DUPL ICATED TO INTERNAL ORDERS Performed By: #### L 500.4050, L100.0100 ####[facility] [address] [place], [address] T PROT Normal 6.4-8.2 [facility] Comment on above: Result Comment: DUPL ICATED TO INTERNAL ORDERS Performed By: #### L 500.4050, L100.0100 ####[facility] [address] [place], [address] Comprehensive Metabolic Profil Normal 136-145 [facility] Comment on above: Result Comment: DUPL ICATED TO INTERNAL ORDERS Performed By: #### L 500.4050, L100.0100 ####[facility] [address] [place], [place], [id number] Dacrocytes LM Ql (Bld)Ordere d By: Shannan Waldrop on 09-21-2024 Tear Drop Cells RARE [facility] Estimated glomerular filtrat ion rate (GFR) AmericanOrdered By: Shannan Waldrop on 09-21-2024 Estimated GFR (MDRD) Amer 103 mL/min >60 [facility] Comment on above: GFR Calc Laboratory - Hematology and Cell countsOrdered By: Shannan Waldrop on 09-21-2024 Anisocytosis Ql (Bld) 2+ [facility] Magnesiumon 09-21-2024 Magnesium [Mass/Vol] 2.0 mg/dL Normal 1.6-2.6 [facility] Comment on above: Performed By: #### L 501.9520, L501.5200, L501.2300, L500.4050, L100.0100, L506.0400 ####[facility] [address] [place], [place], [id number] Manual differential comment Kuldip (Bld) [Interp]Ordered By: Shannan Waldrop on 09-21-2024 Differential Comment SCANNED [facility] Oncology Visit Reporton Oncology Visit Report Normal [facility] Ovalocyte detectionOrdered B y: Shannan Waldrop on 09-21-2024 Ovalocytes LM Ql (Bld) 2+ [facility] Ovalocytes LM Ql (Bld)Ordere d By: Shannan Waldrop on 09-21-2024 Ovalocytes 2+ [facility] Phosphoruson 09-21-2024 Phosphate [Mass/Vol] 3.9 mg/dL Normal 2.5-4.9 [facility] Comment on above: Performed By: #### L 501.9520, L501.5200, L501.2300, L500.4050, L100.0100, L506.0400 ####[facility] [address] [place], [place], [id number] Platelet estimateOrdered By: Shannan Waldrop on 09-21-2024 Platelets LM Ql (Bld) ADEQUATE ADEQ [facility] Platelets LM Ql (Bld)Ordered By: Shannan Waldrop on 09-21-2024 Platelet Estimate ADEQUATE ADEQ [facility] T4 Free Directon 09-21-2024 T4 FREE DIRECT 1.08 ng/dL Normal 0.76-1.46 [facility] Comment on above: Performed By: #### L 501.9520, L501.5200, L501.2300, L500.4050, L100.0100, L506.0400 ####[facility] [address] [place], [address] Teardrop cell detectionOrder ed By: Shannan Waldrop on 09-21-2024 Dacrocytes LM Ql (Bld) [facility] Thyroid Stim Hormone (TSH)on 09-21-2024 TSH 2.660 uIU/mL Normal 0.358-3.740 [facility] Comment on above: Performed By: #### L 501.9520, L501.5200, L501.2300, L500.4050, L100.0100, L506.0400 ####[facility] [address] [place], [place], [id number] Carotid Duplex Ultrasoundon 09-20-2024 Carotid Duplex Ultrasound Normal [facility] Lower Ext Art Exam w/ Exerci elgin 09-20-2024 Lower Ext Art Exam w/ Exercise Normal [facility] Blood polychromasia detectio n by light microscopyOrdered By: Shannan Waldrop on 09-06-2024 Polychromasia LM Ql (Bld) [facility] CBC W/Diff, Automatedon 08-19 HYPOCHROMASIA 2+ Normal [facility] Comment on above: Performed By: #### L 100.0100, L500.4050, L501.5200 ####[facility] [address] [place], [address] Anisocytosis Ql (Bld) 2+ Normal [facility] Comment on above: Performed By: #### L 100.0100, L500.4050, L501.5200 ####[facility] [address] [place], [address] POLYCHROMASIA RARE Normal [facility] Comment on above: Performed By: #### L 100.0100, L500.4050, L501.5200 ####[facility] [address] [place], [address] SMEAR COMMENT SCANNED Normal [facility] Comment on above: Performed By: #### L 100.0100, L500.4050, L501.5200 ####[facility] [address] [place], [address] Comprehensive Metabolic Prof ilon 09-06-2024 Albumin [Mass/Vol] 3.6 g/dL Normal 3.2-5.0 [facility] Comment on above: Result Comment: PER [facility] PT NOT SCHEDULED Performed By: #### L 100.0100, L500.4050, L501.5200 ####[facility] [address] [place], [address] Albumin/Globulin [Mass ratio] 1.0 {ratio} Normal 0.9-2.4 [facility] Comment on above: Performed By: #### L 100.0100, L500.4050, L501.5200 ####[facility] [address] [place], [address] ALK P 69 U/L Normal 45-117 [facility] Comment on above: Result Comment: PER [facility] PT NOT SCHEDULED Performed By: #### L 100.0100, L500.4050, L501.5200 ####[facility] [address] [place], [address] ALT [Catalytic activity/Vol] 21 U/L Normal 13-56 [facility] Comment on above: Result Comment: PER [facility] PT NOT SCHEDULED Performed By: #### L 100.0100, L500.4050, L501.5200 ####[facility] [address] [place], [address] AST [Catalytic activity/Vol] 15 U/L Normal 15-37 [facility] Comment on above: Result Comment: PER [facility] PT NOT SCHEDULED Performed By: #### L 100.0100, L500.4050, L501.5200 ####[facility] [address] [place], [address] Bilirubin [Mass/Vol] 0.40 mg/dL Normal 0.20-1.00 [facility] Comment on above: Result Comment: For patients on eltrombopag therapy, use of Dimension [employer] TBIL is not recommended. Performed By: #### L 100.0100, L500.4050, L501.5200 ####[facility] [address] [place], [address] BUN/CRE 13.3 RATIO Normal 10-20 [facility] Comment on above: Result Comment: PER [facility] PT NOT SCHEDULED Performed By: #### L 100.0100, L500.4050, L501.5200 ####[facility] [address] [place], [address] CA,Total 9.2 mg/dL Normal 8.5-10.1 [facility] Comment on above: Result Comment: PER [facility] PT NOT SCHEDULED Performed By: #### L 100.0100, L500.4050, L501.5200 ####[facility] [address] [place], [address] Chloride [Moles/Vol] 108 mmol/L High 98-107 [facility] Comment on above: Result Comment: PER [facility] PT NOT SCHEDULED Performed By: #### L 100.0100, L500.4050, L501.5200 ####[facility] [address] [place], [address] CO2 [Moles/Vol] 23.0 mmol/L Normal 21.0-32.0 [facility] Comment on above: Result Comment: PER [facility] PT NOT SCHEDULED Performed By: #### L 100.0100, L500.4050, L501.5200 ####[facility] [address] [place], [address] Creatinine [Mass/Vol] 0.83 mg/dL Normal 0.55-1.02 [facility] Comment on above: Result Comment: The validity of the calculated GFR GFRAA in patients over70 years has not been determined. Clinical correlation isessential. Performed By: #### L 100.0100, L500.4050, L501.5200 ####[facility] [address] [place], [address] ECRCL 63.56 ml/min Normal [facility] Comment on above: Performed By: #### L 100.0100, L500.4050, L501.5200 ####[facility] [address] [place], [address] EST GFR - AA 88 mL/min Normal >60 [facility] Comment on above: Result Comment: Afri can Nigerian GFR Calc Performed By: #### L 100.0100, L500.4050, L501.5200 ####[facility] [address] [place], [address] GAP 9 Normal 5-15 [facility] Comment on above: Result Comment: PER [facility] PT NOT SCHEDULED Performed By: #### L 100.0100, L500.4050, L501.5200 ####[facility] [address] [place], [address] GFR/1.73 sq M.predicted among non-blacks MDRD (S/P/Bld) [Vol rate/Area] 73 mL/min/{1.73_m2} Normal >60 [facility] Comment on above: Result Comment: Non- GFR Calc Performed By: #### L 100.0100, L500.4050, L501.5200 ####[facility] [address] [place], [address] Globulin (S) [Mass/Vol] 3.5 g/dL Normal 2.2-4.2 [facility] Comment on above: Performed By: #### L 100.0100, L500.4050, L501.5200 ####[facility] [address] [place], [address] Glucose [Mass/Vol] 160 mg/dL High 74-106 [facility] Comment on above: Result Comment: Fast ing Glucose result greater than or equal to 126 mg/dLsuggests DIABETES MELLITUS per A.D.A. criteria. Performed By: #### L 100.0100, L500.4050, L501.5200 ####[facility] [address] [place], [address] Potassium [Moles/Vol] 3.7 mmol/L Normal 3.5-5.1 [facility] Comment on above: Result Comment: PER [facility] PT NOT SCHEDULED Performed By: #### L 100.0100, L500.4050, L501.5200 ####[facility] [address] [place], [address] Sodium [Moles/Vol] 140 mmol/L Normal 136-145 [facility] Comment on above: Result Comment: PER [facility] PT NOT SCHEDULED Performed By: #### L 100.0100, L500.4050, L501.5200 ####[facility] [address] [place], [address] T PROT 7.1 g/dL Normal 6.4-8.2 [facility] Comment on above: Result Comment: PER [facility] PT NOT SCHEDULED Performed By: #### L 100.0100, L500.4050, L501.5200 ####[facility] [address] [place], [address] Urea nitrogen [Mass/Vol] 11 mg/dL Normal 7-18 [facility] Comment on above: Result Comment: PER [facility] PT NOT SCHEDULED Performed By: #### L 100.0100, L500.4050, L501.5200 ####[facility] [address] [place], [address] Hypochromatic red blood cell detectionOrdered By: Shannan Waldrop on 09-06-2024 Hypochromia Ql (Bld) 2+ [facility] Hypochromia Ql (Bld)Ordered By: Shannan Waldrop on 09-06-2024 Hypochromasia 2+ [facility] Magnesiumon 09-06-2024 Magnesium [Mass/Vol] 1.7 mg/dL Normal 1.6-2.6 [facility] Comment on above: Performed By: #### L 100.0100, L500.4050, L501.5200 ####[facility] [address] [place], [address] Oncology Visit Reporton 08-19 Oncology Visit Report Normal [facility] Polychromasia LM Ql (Bld)Ord ered By: Shannan Waldrop on 09-06-2024 Polychromasia RARE [facility] Bilirubin Test strip Ql (U)O rdered By: Sharif Christianson on 08-31-2024 Bilirubin Ql (U) Negative Negative [facility] CT Chest AND Abd W/ Contrast on 08-31-2024 CT Chest AND Abd W/ Contrast Normal [facility] Cardiology Visit Reporton Cardiology Visit Report Normal [facility] Epithelial cells.squamous LM Ql (Urine sed)Ordered By: Sharif Christianson on 08-31-2024 Epithelial cells.squamous LM.HPF (Urine sed) [#/Area] 0 /[HPF] 5-10 [facility] Glucose Ql (U)Ordered By: Yessenia Christianson on 08-31-2024 Urine Glucose (UA) Normal mg/dl Normal [facility] Ketones Test strip Ql (U)Ord ered By: Sharif Christianson on 08-31-2024 Ketones Ql (U) Negative Negative [facility] Microalb:Creat Ratio,Random URon 08-31-2024 Creatinine [Mass/Vol] 69.50 mg/dL Normal NO RANGE EST. [facility] Comment on above: Order Comment: Order Date: 08/26/24Order Info: [id number] - MIACRE Performed By: #### L 502.0250 ####[facility] [address] [place], [place], [address] MALB:CRE 17.8 mg/g CRE Normal <30 mg/g CRE [facility] Comment on above: Order Comment: Order Date: 08/26/24Order Info: [id number] - MIACRE Performed By: #### L 502.0250 ####[facility] [address] [place], [place], [address] MICROALBUMIN,UR 12.4 mg/L Normal NO RANGE EST. [facility] Comment on above: Order Comment: Order Date: 08/26/24Order Info: [id number] - MIACRE Performed By: #### L 502.0250 ####[facility] [address] [place], [place], [address] Microscopic analysis of urin e for red blood cells (RBC)Ordered By: Sharif Christianson on 08-31-2024 Urine RBC 0 SEEN /hpf 0-5 [facility] Mucus LM Ql (Urine sed)Order ed By: Sharif Christianson on 08-31-2024 Mucus Ql (Urine sed) 0 SEEN /hpf [facility] Nitrite Test strip Ql (U)Ord ered By: Sharif Christianson on 08-31-2024 Nitrite Ql (U) Negative Negative [facility] Protein Test strip Ql (U)Ord ered By: Sharif Christianson on 08-31-2024 Protein Ql (U) Negative Negative [facility] Random urine microalbumin me asurementOrdered By: Sharif Christianson on 08-31-2024 Urine Random Microalbumin 12.4 mg/L NO RANGE E . [facility] Urinalysis, Completeon 08-31 BACTERIA 4+ /hpf Normal None Seen [facility] Comment on above: Order Comment: CLEAN CATCH Performed By: #### L 400.0001 ####[facility] [address] [place], [address] EPI,SQUAMOUS 0-5 SEEN Normal 5-10 [facility] Comment on above: Order Comment: CLEAN CATCH Performed By: #### L 400.0001 ####[facility] [address] [place], [address] WBC 25-50 SEEN Normal 0-5 [facility] Comment on above: Order Comment: CLEAN CATCH Performed By: #### L 400.0001 ####[facility] [address] [place], [address] Mucus Ql (Urine sed) 0 SEEN Normal [facility] Comment on above: Order Comment: CLEAN CATCH Performed By: #### L 400.0001 ####[facility] [address] [place], [address] RBC 0 SEEN Normal 0-5 [facility] Comment on above: Order Comment: CLEAN CATCH Performed By: #### L 400.0001 ####[facility] [address] [place], [address] Urine albumin/creatinine rat io for detection of microalbuminuriaOrdered By: Sharif Christianson on 08-31-2024 Urine Microalbumin/Creatinine Ratio 17.8 mg/g CRE <30 [facility] Urine blood detectionOrdered By: Sharif Christianson on 08-31-2024 Urine Occult Blood 10 /ul High Negative [facility] Urine clarityOrdered By: Link Christianson on 08-31-2024 Clarity (U) Cloudy Clear [facility] Urine color determinationOrd ered By: Sharif Christianson on 08-31-2024 Color (U) Yellow Yellow [facility] Urine creatinine measurement (mass/volume)Ordered By: Sharif Christianson on 08-31-2024 Creatinine (U) [Mass/Vol] 69.50 mg/dL NO RANGE EST. [facility] Urine leukocyte esterase det ection by dipstickOrdered By: Sharif Christianson on 08-31-2024 Leukocyte esterase Test strip Ql (U) 100 /ul High Negative [facility] Urine pHOrdered By: Sharif brasher on 08-31-2024 pH (U) 7.0 [pH] 5.0 - 8.0 [facility] Urine sediment bacteria coun t by microscopy (number/high power field)Ordered By: Sharif Christianson on 08-31-2024 Bacteria LM.HPF (Urine sed) [#/Area] 4 /[HPF] None Seen [facility] Urine specific gravity measu rementOrdered By: Sharif Christianson on 08-31-2024 Specific gravity (U) [Rel density] 1.015 1.002-1.030 [facility] Urobilinogen Ql (U)Ordered B y: Sharif Christianson on 08-31-2024 Urobilinogen (U) [Mass/Vol] 1 mg/dL High Normal [facility] White blood cell countOrdere d By: Sharif Christianson on 08-31-2024 Urine WBC 25-50 SEEN /hpf 0-5 [facility] 01-QI-Eaaotkp DOrdered By: Nataly Christianson on 08-26-2024 Vitamin D 25-Hydroxy 89.2 ng/mL [facility] Comment on above: Vitamin D 25(OH) Sta tus Range Deficiency <20 ng/mL (50nmol/L) Insufficiency 20 - 30 ng/mL (50 - 75 nmol/L) Sufficiency 30 - 100 ng/mL (75 - 250 nmol/L) Toxicity >100 ng/mL (>250 nmol/L) Absolute neutrophil countOrd ered By: Sharif Christianson on 08-26-2024 Neutrophils (Bld) [#/Vol] 2.2 10*3/uL 2.0-7.7 [facility] Albumin to globulin ratioOrd ered By: Sharif Christianson on 08-26-2024 Albumin/Globulin [Mass ratio] 1.0 {ratio} 0.9-2.4 [facility] Basophil percentageOrdered B y: Sharif Christianson on 08-26-2024 Basophils/100 WBC (Bld) 0.3 % 0-1 [facility] Bilirubin, totalOrdered By: Sharif Christianson on 08-26-2024 Bilirubin [Mass/Vol] 0.50 mg/dL 0.20-1.00 [facility] Comment on above: For patients on eltr ombopag therapy, use of [employer]ension [employer] TBIL is not recommended. Blood urea nitrogen (BUN)/cr eatinine ratioOrdered By: Sharif Christianson on 08-26-2024 Urea nitrogen/Creatinine [Mass ratio] 16.0 mg/mg 10-20 [facility] CBC W/Diff, Automatedon SMEAR COMMENT COMMENT Normal [facility] Comment on above: Order Comment: Order Date: 08/26/24Order Info: [id number] - CBCD Result Comment: LYMP HOPENIA. Performed By: #### L 100.0100, L506.1000, L501.9985, L500.4050, L500.4100 ####[facility] [address] [place], [address] Anisocytosis Ql (Bld) 1+ Normal [facility] Comment on above: Order Comment: Order Date: 08/26/24Order Info: [id number] - CBCD Performed By: #### L 100.0100, L506.1000, L501.9985, L500.4050, L500.4100 ####[facility] [address] [place], [address] PLT EST MOD DEC Normal ADEQ [facility] Comment on above: Order Comment: Order Date: 08/26/24Order Info: [id number] - CBCD Performed By: #### L 100.0100, L506.1000, L501.9985, L500.4050, L500.4100 ####[facility] [address] [place], [address] Carbon dioxide measurementOr dered By: Sharif Christianson on 08-26-2024 CO2 [Moles/Vol] 23.0 mmol/L 21.0-32.0 [facility] Chloride measurementOrdered By: Sharif Christianson on 08-26-2024 Chloride [Moles/Vol] 109 mmol/L High 98-107 [facility] Comprehensive Metabolic Prof ilon 08-26-2024 Albumin [Mass/Vol] 3.2 g/dL Normal 3.2-5.0 [facility] Comment on above: Order Comment: Order Date: 08/26/24Order Info: [id number] - CMPOrder Info: [id number] - LIPID Performed By: #### L 100.0100, L506.1000, L501.9985, L500.4050, L500.4100 ####[facility] [address] [place], [address] Albumin/Globulin [Mass ratio] 1.0 {ratio} Normal 0.9-2.4 [facility] Comment on above: Order Comment: Order Date: 08/26/24Order Info: [id number] - CMPOrder Info: [id number] - LIPID Performed By: #### L 100.0100, L506.1000, L501.9985, L500.4050, L500.4100 ####[facility] [address] [place], [address] ALK P 68 U/L Normal 45-117 [facility] Comment on above: Order Comment: Order Date: 08/26/24Order Info: [id number] - CMPOrder Info: [id number] - LIPID Performed By: #### L 100.0100, L506.1000, L501.9985, L500.4050, L500.4100 ####[facility] [address] [place], [address] ALT [Catalytic activity/Vol] 46 U/L Normal 13-56 [facility] Comment on above: Order Comment: Order Date: 08/26/24Order Info: [id number] - CMPOrder Info: [id number] - LIPID Performed By: #### L 100.0100, L506.1000, L501.9985, L500.4050, L500.4100 ####[facility] [address] [place], [address] AST [Catalytic activity/Vol] 29 U/L Normal 15-37 [facility] Comment on above: Order Comment: Order Date: 08/26/24Order Info: [id number] - CMPOrder Info: [id number] - LIPID Performed By: #### L 100.0100, L506.1000, L501.9985, L500.4050, L500.4100 ####[facility] [address] [place], [address] Bilirubin [Mass/Vol] 0.50 mg/dL Normal 0.20-1.00 [facility] Comment on above: Order Comment: Order Date: 08/26/24Order Info: [id number] - CMPOrder Info: [id number] - LIPID Result Comment: For patients on eltrombopag therapy, use of [employer] TBIL is not recommended. Performed By: #### L 100.0100, L506.1000, L501.9985, L500.4050, L500.4100 ####[facility] [address] [place], [address] BUN/CRE 16.0 RATIO Normal 10-20 [facility] Comment on above: Order Comment: Order Date: 08/26/24Order Info: [id number] - CMPOrder Info: [id number] - LIPID Performed By: #### L 100.0100, L506.1000, L501.9985, L500.4050, L500.4100 ####[facility] [address] [place], [address] CA,Total 8.7 mg/dL Normal 8.5-10.1 [facility] Comment on above: Order Comment: Order Date: 08/26/24Order Info: [id number] - CMPOrder Info: [id number] - LIPID Performed By: #### L 100.0100, L506.1000, L501.9985, L500.4050, L500.4100 ####[facility] [address] [place], [address] Chloride [Moles/Vol] 109 mmol/L High 98-107 [facility] Comment on above: Order Comment: Order Date: 08/26/24Order Info: [id number] - CMPOrder Info: [id number] - LIPID Performed By: #### L 100.0100, L506.1000, L501.9985, L500.4050, L500.4100 ####[facility] [address] [place], [address] CO2 [Moles/Vol] 23.0 mmol/L Normal 21.0-32.0 [facility] Comment on above: Order Comment: Order Date: 08/26/24Order Info: [id number] - CMPOrder Info: [id number] - LIPID Performed By: #### L 100.0100, L506.1000, L501.9985, L500.4050, L500.4100 ####[facility] [address] [facility] [address] [place], [address] Creatinine [Mass/Vol] 0.75 mg/dL Normal 0.55-1.02 [facility] Comment on above: Order Comment: Order Date: 08/26/24Order Info: [id number] - CMPOrder Info: [id number] - LIPID Result Comment: The validity of the calculated GFR GFRAA in patients over70 years has not been determined. Clinical correlation isessential. Performed By: #### L 100.0100, L506.1000, L501.9985, L500.4050, L500.4100 ####[facility] [address] [place], [address] EST GFR - AA 98 mL/min Normal >60 [facility] Comment on above: Order Comment: Order Date: 08/26/24Order Info: [id number] - CMPOrder Info: [id number] - LIPID Result Comment: Afri can Nigerian GFR Calc Performed By: #### L 100.0100, L506.1000, L501.9985, L500.4050, L500.4100 ####[facility] [address] [place], [address] GAP 9 Normal 5-15 [facility] Comment on above: Order Comment: Order Date: 08/26/24Order Info: [id number] - CMPOrder Info: [id number] - LIPID Performed By: #### L 100.0100, L506.1000, L501.9985, L500.4050, L500.4100 ####[facility] [address] [place], [address] GFR/1.73 sq M.predicted among non-blacks MDRD (S/P/Bld) [Vol rate/Area] 81 mL/min/{1.73_m2} Normal >60 [facility] Comment on above: Order Comment: Order Date: 08/26/24Order Info: [id number]- - CMPOrder Info: [id number] - LIPID Result Comment: Non- GFR Calc Performed By: #### L 100.0100, L506.1000, L501.9985, L500.4050, L500.4100 ####[facility] [address] [place], [address] Globulin (S) [Mass/Vol] 3.2 g/dL Normal 2.2-4.2 [facility] Comment on above: Order Comment: Order Date: 08/26/24Order Info: [id number] - CMPOrder Info: [id number] - LIPID Performed By: #### L 100.0100, L506.1000, L501.9985, L500.4050, L500.4100 ####[facility] [address] [place], [address] Glucose [Mass/Vol] 158 mg/dL High 74-106 [facility] Comment on above: Order Comment: Order Date: 08/26/24Order Info: [id number] - CMPOrder Info: [id number] - LIPID Result Comment: Fast ing Glucose result greater than or equal to 126 mg/dLsuggests DIABETES MELLITUS per A.D.A. criteria. Performed By: #### L 100.0100, L506.1000, L501.9985, L500.4050, L500.4100 ####[facility] [address], [address] Potassium [Moles/Vol] 4.0 mmol/L Normal 3.5-5.1 [facility] Comment on above: Order Comment: Order Date: 08/26/24Order Info: [id number] - CMPOrder Info: [id number] - LIPID Performed By: #### L 100.0100, L506.1000, L501.9985, L500.4050, L500.4100 ####[facility] [address], [address] Sodium [Moles/Vol] 141 mmol/L Normal 136-145 [facility] Comment on above: Order Comment: Order Date: 08/26/24Order Info: [id number] - CMPOrder Info: [id number] - LIPID Performed By: #### L 100.0100, L506.1000, L501.9985, L500.4050, L500.4100 ####[facility] [address], [address] T PROT 6.4 g/dL Normal 6.4-8.2 [facility] Comment on above: Order Comment: Order Date: 08/26/24Order Info: [id number] - CMPOrder Info: [id number] - LIPID Performed By: #### L 100.0100, L506.1000, L501.9985, L500.4050, L500.4100 ####[facility] [address] [place], [address] Urea nitrogen [Mass/Vol] 12 mg/dL Normal 7-18 [facility] Comment on above: Order Comment: Order Date: 08/26/24Order Info: [id number] - CMPOrder Info: [id number] - LIPID Performed By: #### L 100.0100, L506.1000, L501.9985, L500.4050, L500.4100 ####[facility] [address] [place], [address] Eosinophil percentageOrdered By: Sharif Christianson on 08-26-2024 Eosinophils/100 WBC (Bld) 1.1 % 0-5 [facility] Erythrocyte distribution wid th (RBC) [Ratio]Ordered By: Sharif Christianson on 08-26-2024 Erythrocyte distribution width (RBC) [Entitic vol] 70.5 fL High 35.1-43.9 [facility] Erythrocyte distribution wid th ratioOrdered By: Sharif Christianson on 08-26-2024 Erythrocyte distribution width (RBC) [Ratio] 21.1 % High 11.6-14.6 [facility] Estimated glomerular filtrat ion rate (GFR) AmericanOrdered By: Sharif Christianson on 08-26-2024 Estimated GFR (MDRD) Amer 98 mL/min >60 [facility] Comment on above: GFR Calc Glomerular filtration rate ( GFR) estimationOrdered By: Sharif Christianson on 08-26-2024 Estimated GFR (MDRD) Non-Af Amer 81 mL/min >60 [facility] Comment on above: Non- GFR Calc Glucose measurementOrdered B y: Sharif Christianson on 08-26-2024 Glucose [Mass/Vol] 158 mg/dL High 74-106 [facility] Comment on above: Fasting Glucose resu lt greater than or equal to 126 mg/dL suggests DIABETES MELLITUS per A.D.A. criteria. Hematocrit Auto (Bld) [Volum e fraction]Ordered By: Sharif Christianson on 08-26-2024 Hematocrit (Bld) [Volume fraction] 28.3 % Low 37-47 [facility] Hemoglobin A1con 08-26-2024 HbA1c (Bld) [Mass fraction] 7.8 % High 3.8-5.6 [facility] Comment on above: Order Comment: Order Date: 08/26/24Order Info: [id number] - A1C Result Comment: Norm al < 5.7 % Prediabetic 5.7 - 6.4 % Diabetic >or= 6.5 % Please note range changes. Performed By: #### L 100.0100, L506.1000, L501.9985, L500.4050, L500.4100 ####[facility] [address] [place], [address] Hemoglobin A1c percentageOrd ered By: Sharif Christianson on 08-26-2024 HbA1c (Bld) [Mass fraction] 7.8 % High 3.8-5.6 [facility] Comment on above: Normal < 5.7 % Predi abetic 5.7 - 6.4 % Diabetic >or= 6.5 % Please note range changes. Hemoglobin measurementOrdere d By: Sharif Christianson on 08-26-2024 Hemoglobin (Bld) [Mass/Vol] 8.8 g/dL Low 12.0-15.0 [facility] High density lipoprotein (HD L) measurementOrdered By: Sharif Christianson on 08-26-2024 Cholesterol in HDL [Mass/Vol] 55 mg/dL >40 [facility] Comment on above: The drugs N-Acetylcy steine and Metamizole may falsely depress this assay. Reference Range HDL <40 mg/dL Low HDL Cholesterol HDL >or= 60 mg/dL High HDL Cholesterol Immature granulocytes/100 WB C Auto (Bld)Ordered By: Sharif Christianson on 08-26-2024 Immature granulocytes/100 WBC (Bld) 1.400 % High 0.0-0.9 [facility] Comment on above: IG% - Immature Granu locytes (promyelocytes, myelocytes and metamyelocytes) > 1% indicates that a LEFT SHIFT is Present. Laboratory - Chemistry and C hemistry - challengeOrdered By: Sharif Christianson on 08-26-2024 AST [Catalytic activity/Vol] 29 U/L 15-37 [facility] Laboratory - Hematology and Cell countsOrdered By: Sharif Christianson on 08-26-2024 Anisocytosis Ql (Bld) 1+ [facility] Lipid Profileon 08-26-2024 Cholesterol [Mass/Vol] 89 mg/dL Normal 200 [facility] Comment on above: Order Comment: Order Date: 08/26/24Order Info: [id number] - CMPOrder Info: [id number] - LIPID Result Comment: <200 mg/dL Desirable 200-240 mg/dL Borderline >240 mg/dL High Risk Performed By: #### L 100.0100, L506.1000, L501.9985, L500.4050, L500.4100 ####[facility] [address] [place], [address] Cholesterol in HDL [Mass/Vol] 55 mg/dL Normal [facility] Comment on above: Order Comment: Order Date: 08/26/24Order Info: [id number] - CMPOrder Info: [id number] - LIPID Result Comment: The drugs N-Acetylcysteine and Metamizole may falselydepress this assay. Reference Range HDL <40 mg/dL Low HDL Cholesterol HDL >or= 60 mg/dL High HDL Cholesterol Performed By: #### L 100.0100, L506.1000, L501.9985, L500.4050, L500.4100 ####[facility] [address] [place], [address] Cholesterol in LDL [Mass/Vol] 16 mg/dL Normal 0-130 [facility] Comment on above: Order Comment: Order Date: 08/26/24Order Info: [id number] - CMPOrder Info: [id number] - LIPID Performed By: #### L 100.0100, L506.1000, L501.9985, L500.4050, L500.4100 ####[facility] [address] [place], [address] Cholesterol in VLDL [Mass/Vol] 18 mg/dL Normal 5-40 [facility] Comment on above: Order Comment: Order Date: 08/26/24Order Info: [id number] - CMPOrder Info: [id number] - LIPID Performed By: #### L 100.0100, L506.1000, L501.9985, L500.4050, L500.4100 ####[facility] [address] [place], [address] Triglyceride [Mass/Vol] 89 mg/dL Normal [facility] Comment on above: Order Comment: Order Date: 08/26/24Order Info: [id number] - CMPOrder Info: [id number] - LIPID Result Comment: The drugs N-Acetylcysteine and Metamizole may falselydepress this assay.Serum Triglycerides Reference Interval Normal <150 mg/dL Borderline high 150 - 199 mg/dL High 200 - 499 mg/dL Very High > or = 500 mg/dL Performed By: #### L 100.0100, L506.1000, L501.9985, L500.4050, L500.4100 ####[facility] [address] [place], [address] Low density lipoprotein (LDL ) cholesterol measurementOrdered By: Sharif Christianson on 08-26-2024 Cholesterol in LDL [Mass/Vol] 16 mg/dL 0-130 [facility] Lymphocytes Auto (Unsp spec) [#/Vol]Ordered By: Sharif Christianson on 08-26-2024 Lymphocytes (Bld) [#/Vol] 0.57 10*3/uL Low 0.83-4.5 1 [facility] Lymphocytes/100 WBC Auto (Un sp spec)Ordered By: Sharif Christianson on 08-26-2024 Lymphocytes/100 WBC (Bld) 16.2 % Low 19-41 [facility] MCV (mean corpuscular volume ) determinationOrdered By: Sharif Christianson on 08-26-2024 MCV (RBC) [Entitic vol] 95.9 fL 81-99 [facility] Manual differential comment Kuldip (Bld) [Interp]Ordered By: Sharif Christianson on 08-26-2024 Differential Comment COMMENT [facility] Comment on above: LYMPHOPENIA. Mean corpuscular hemoglobin (MCH) determinationOrdered By: Sharif Christianson on 08-26-2024 MCH (RBC) [Entitic mass] 29.8 pg 27.0-32.0 [facility] Mean corpuscular hemoglobin concentration (MCHC) determinationOrdered By: Sharif Christianson on 08-26-2024 MCHC (RBC) [Mass/Vol] 31.1 g/dL Low 32-36 [facility] Mean platelet volume determi nationOrdered By: Sharif Christianson on 08-26-2024 Platelet mean volume (Bld) [Entitic vol] 10.4 fL 6.2-12.0 [facility] Monocyte percentageOrdered B y: Sharif Christianson on 08-26-2024 Monocytes/100 WBC (Bld) 19.9 % High 0-10 [facility] Neutrophil percentageOrdered By: Sharif Christianson on 08-26-2024 Neutrophils/100 WBC (Bld) 61.1 % 47-70 [facility] Nucleated red blood cell per centageOrdered By: Sharif Christianson on 08-26-2024 Nucleated RBC/100 WBC (Bld) [Ratio] 0 % 0-5 [facility] Platelet countOrdered By: Yessenia Christianson on 08-26-2024 Platelets (Bld) [#/Vol] 81 10*3/uL Low 150-450 [facility] Platelets LM Ql (Bld)Ordered By: Sharif Christianson on 08-26-2024 Platelet Estimate MOD DEC ADEQ [facility] Potassium measurementOrdered By: Sharif Christianson on 08-26-2024 Potassium [Moles/Vol] 4.0 mmol/L 3.5-5.1 [facility] RBC Auto (Bld) [#/Vol]Ordere d By: Sharif Christianson on 08-26-2024 RBC (Bld) [#/Vol] 2.95 10*6/uL Low 4.2-5.4 [facility] Serum anion gap measurementO rdered By: Sharif Christianson on 08-26-2024 Anion gap [Moles/Vol] 9 mmol/L 5-15 [facility] Serum globulin measurementOr dered By: Sharif Christianson on 08-26-2024 Globulin (S) [Mass/Vol] 3.2 g/dL 2.2-4.2 [facility] Serum or plasma alanine amezquita otransferase (ALT) measurementOrdered By: Sharif Christianson on 08-26-2024 ALT [Catalytic activity/Vol] 46 U/L 13-56 [facility] Serum or plasma albumin joaquin urement (mass/volume)Ordered By: Sharif Christianson on 08-26-2024 Albumin [Mass/Vol] 3.2 g/dL 3.2-5.0 [facility] Serum or plasma alkaline gumaro sphatase measurementOrdered By: Sharif Christianson on 08-26-2024 ALP [Catalytic activity/Vol] 68 U/L 45-117 [facility] Serum or plasma calcium joaquin urement (mass/volume)Ordered By: Sharif Christianson on 08-26-2024 Calcium [Mass/Vol] 8.7 mg/dL 8.5-10.1 [facility] Serum or plasma cholesterol measurement (mass/volume)Ordered By: Sharif Christianson on 08-26-2024 Cholesterol [Mass/Vol] 89 mg/dL <200 [facility] Comment on above: <200 mg/dL Desirable 200-240 mg/dL Borderline >240 mg/dL High Risk Serum or plasma creatinine m easurement (mass/volume)Ordered By: Sharif Christianson on 08-26-2024 Creatinine [Mass/Vol] 0.75 mg/dL 0.55-1.02 [facility] Comment on above: The validity of the calculated GFR & GFRAA in patients over 70 years has not been determined. Clinical correlation is essential. Serum or plasma urea nitroge n measurement (mass/volume)Ordered By: Sharif Christianson on 08-26-2024 Urea nitrogen [Mass/Vol] 12 mg/dL 7-18 [facility] Sodium levelOrdered By: Sharif Christianson on 08-26-2024 Sodium [Moles/Vol] 141 mmol/L 136-145 [facility] Total proteinOrdered By: Link Christianson on 08-26-2024 Protein [Mass/Vol] 6.4 g/dL 6.4-8.2 [facility] Triglycerides measurementOrd ered By: Sharif Christianson on 08-26-2024 Triglyceride [Mass/Vol] 89 mg/dL <199 [facility] Comment on above: The drugs N-Acetylcy steine and Metamizole may falsely depress this assay.Serum Triglycerides Reference Interval Normal <150 mg/dL Borderline high 150 - 199 mg/dL High 200 - 499 mg/dL Very High > or = 500 mg/dL Very low density lipoprotein (VLDL) cholesterol measurementOrdered By: Sharif Christianson on 08-26-2024 VLDL Cholesterol 18 mg/dL 5-40 [facility] Vitamin D,25 Hydroxyon 08-26 Vitamin D 25-OH 89.2 ng/mL Normal [facility] Comment on above: Order Comment: Order Date: 08/26/24Order Info: [id number] - [id number] Result Comment: Sariah min D 25(OH) Status Range Deficiency <20 ng/mL (50nmol/L) Insufficiency 20 - 30 ng/mL (50 - 75 nmol/L) Sufficiency 30 - 100 ng/mL (75 - 250 nmol/L) Toxicity >100 ng/mL (>250 nmol/L) Performed By: #### L 100.0100, L506.1000, L501.9985, L500.4050, L500.4100 ####[facility] [address] [place], [address] White blood cell (WBC) count Ordered By: Sharif Christianson on 08-26-2024 WBC (Bld) [#/Vol] 3.5 10*3/uL Low 4.4-11.0 [facility] CBC W/Diff, Automatedon PATH REV Reviewed Normal [facility] Comment on above: Result Comment: Panc ytopenia.Leukopenia and neutropenia.Normocytic anemia.MILD Thrombocytopenia.Clinical correlation necessary.Gamal Murillo M.D. 08/24/24 AMENDED REPORT 08/24/24 1352 PATH REV previously reported as: Jeanette hough Performed By: #### L 100.0100 ####[facility] [address] [place], [address] Pathologist review Kuldip (Unsp spec) [Interp]Ordered By: Shannan Waldrop on 08-23-2024 Differential Pathologist's Review Reviewed [facility] Comment on above: Previous reported re sult: Jeanette hough Edited by: MARK on 08/24/24:1352Pancytopenia.Leukopenia and neutropenia.Normocytic anemia.MILD Thrombocytopenia.Clinical correlation necessary.Gamal Murillo M.D. 08/24/24 AMENDED REPORT 08/24/24 1352 PATH REV previously reported as: Jeanette hough Review by pathologistOrdered By: Shannan Waldrop on 08-23-2024 Pathologist review Kuldip (Unsp spec) [Interp] Reviewed [facility] Comment on above: Previous reported re sult: Jeanette hough Edited by: MARK on 08/24/24:1352Pancytopenia.Leukopenia and neutropenia.Normocytic anemia.MILD Thrombocytopenia.Clinical correlation necessary.Gamal Murillo M.D. 08/24/24 AMENDED REPORT 08/24/24 1352 PATH REV previously reported as: Jeanette hough CBC W/Diff, Automatedon 12-3 -2023 Absolute Lymph 0.69 X10 3/uL Low 0.83-4.51 [facility] Comment on above: Performed By: #### L 100.0100 ####[facility] [address] [place], [address] Absolute Neut 3.0 X10 3/uL Normal 2.0-7.7 [facility] Comment on above: Performed By: #### L 100.0100 ####[facility] [address] [place], [address] Basophils/100 WBC (Bld) 0.9 % Normal 0-1 [facility] Comment on above: Performed By: #### L 100.0100 ####[facility] [address] [place], [address] Eosinophils/100 WBC (Bld) 0.0 % Normal 0-5 [facility] Comment on above: Performed By: #### L 100.0100 ####[facility] [address] [place], [address] Erythrocyte distribution width (RBC) [Ratio] 19.2 % High 11.6-14.6 [facility] Comment on above: Performed By: #### L 100.0100 ####[facility] [address] [place], [address] Hematocrit (Bld) [Volume fraction] 28.4 % Low 37-47 [facility] Comment on above: Performed By: #### L 100.0100 ####[facility] [address] [place], [address] Hemoglobin (Bld) [Mass/Vol] 8.9 g/dL Low 12.0-15.0 [facility] Comment on above: Performed By: #### L 100.0100 ####[facility] [address] [place], [address] IG% 4.700 High 0.0-0.9 [facility] Comment on above: Result Comment: IG% - Immature Granulocytes (promyelocytes, myelocytes andmetamyelocytes) > 1% indicates that a LEFT SHIFT is Present. Performed By: #### L 100.0100 ####[facility] [address] [place], [address] Lymphocytes/100 WBC (Bld) 15.4 % Low 19-41 [facility] Comment on above: Performed By: #### L 100.0100 ####[facility] [address] [place], [address] MCH (RBC) [Entitic mass] 29.4 pg Normal 27.0-32.0 [facility] Comment on above: Performed By: #### L 100.0100 ####[facility] [address] [place], [address] MCHC (RBC) [Mass/Vol] 31.3 g/dL Low 32-36 [facility] Comment on above: Performed By: #### L 100.0100 ####[facility] [address] [place], [address] MCV (RBC) [Entitic vol] 93.7 fL Normal 81-99 [facility] Comment on above: Performed By: #### L 100.0100 ####[facility] [address] [place], [address] Monocytes/100 WBC (Bld) 12.5 % High 0-10 [facility] Comment on above: Performed By: #### L 100.0100 ####[facility] [address] [place], [address] Neutrophils/100 WBC (Bld) 66.5 % Normal 47-70 [facility] Comment on above: Performed By: #### L 100.0100 ####[facility] [address] [place], [address] Nucleated RBC (Bld) [#/Vol] 0.7 10*3/uL Normal 0-5 [facility] Comment on above: Performed By: #### L 100.0100 ####[facility] [address] [place], [address] Platelet mean volume (Bld) [Entitic vol] 8.3 fL Normal 6.2-12.0 [facility] Comment on above: Performed By: #### L 100.0100 ####[facility] [address] [place], [address] Platelets (Bld) [#/Vol] 280 10*3/uL Normal 150-450 [facility] Comment on above: Performed By: #### L 100.0100 ####[facility] [address] [place], [address] RBC (Bld) [#/Vol] 3.03 10*6/uL Low 4.2-5.4 [facility] Comment on above: Performed By: #### L 100.0100 ####[facility] [address] [place], [address] RDW SD 64.8 fl High 35.1-43.9 [facility] Comment on above: Performed By: #### L 100.0100 ####[facility] [address] [place], [address] WBC (Bld) [#/Vol] 4.5 10*3/uL Normal 4.4-11.0 [facility] Comment on above: Performed By: #### L 100.0100 ####[facility] [address] [place], [address] CBC W/Diff, Automatedon 07-19 PATH REV Reviewed Normal [facility] Comment on above: Result Comment: Neut rophilic leukocytosis with left shiftNormocytic anemia.Clinical correlation necessary.Gamal Murillo M.D. 08/10/24Pathologist comment added AMENDED REPORT 08/10/24 1101 PATH REV previously reported as: December Performed By: #### L 501.5200, L500.4050, L100.0100 ####[facility] [address] [place], [address] Blood band neutrophil count as percentage of total leukocytesOrdered By: Shannan Waldrop on 08-09-2024 Band form neutrophils/100 WBC (Bld) 3 % 0-5 [facility] Blood eosinophils/100 leukoc ytesOrdered By: [facility] 08-09-2024 Eosinophils/100 WBC (Bld) 3 % 0-5 [facility] Blood lymphocytes/100 leukoc ytesOrdered By: Shannan Waldrop on 08-09-2024 Lymphocytes/100 WBC (Bld) 8 % Low 19-41 [facility] Blood monocytes/100 leukocyt esOrdered By: [facility] on 08-09-2024 Monocytes/100 WBC (Bld) 10 % 0-10 [facility] Blood segmented neutrophils/ 100 leukocytesOrdered By: [facility] on 08-09-2024 Segmented neutrophils/100 WBC (Bld) 76 % High 47-70 [facility] Cells counted Molgen (Bld/Ti ss) [#]Ordered By: Shannan Waldrop on 08-09-2024 Differential Total Cells Counted 100 MANUAL DIFF [facility] Comprehensive Metabolic Prof ilon 08-09-2024 Albumin [Mass/Vol] 3.1 g/dL Low 3.2-5.0 [facility] Comment on above: Performed By: #### L 501.5200, L500.4050, L100.0100 ####[facility] [address] [place], [address] Albumin/Globulin [Mass ratio] 1.0 {ratio} Normal 0.9-2.4 [facility] Comment on above: Performed By: #### L 501.5200, L500.4050, L100.0100 ####[facility] [address] [place], [address] ALK P 106 U/L Normal 45-117 [facility] Comment on above: Performed By: #### L 501.5200, L500.4050, L100.0100 ####[facility] [address] [place], [address] ALT [Catalytic activity/Vol] 37 U/L Normal 13-56 [facility] Comment on above: Performed By: #### L 501.5200, L500.4050, L100.0100 ####[facility] [address] [place], [address] AST [Catalytic activity/Vol] 23 U/L Normal 15-37 [facility] Comment on above: Performed By: #### L 501.5200, L500.4050, L100.0100 ####[facility] [address] [place], [address] Bilirubin [Mass/Vol] 0.40 mg/dL Normal 0.20-1.00 [facility] Comment on above: Result Comment: For patients on eltrombopag therapy, use of Dimension [employer] TBIL is not recommended. Performed By: #### L 501.5200, L500.4050, L100.0100 ####[facility] [address] [place], [address] BUN/CRE 12.8 RATIO Normal 10-20 [facility] Comment on above: Performed By: #### L 501.5200, L500.4050, L100.0100 ####[facility] [address] [place], [address] CA,Total 8.6 mg/dL Normal 8.5-10.1 [facility] Comment on above: Performed By: #### L 501.5200, L500.4050, L100.0100 ####[facility] [address] [place], [address] Chloride [Moles/Vol] 107 mmol/L Normal 98-107 [facility] Comment on above: Performed By: #### L 501.5200, L500.4050, L100.0100 ####[facility] [address] [place], [address] CO2 [Moles/Vol] 24.0 mmol/L Normal 21.0-32.0 [facility] Comment on above: Performed By: #### L 501.5200, L500.4050, L100.0100 ####[facility] [address] [place], [address] Creatinine [Mass/Vol] 0.70 mg/dL Normal 0.55-1.02 [facility] Comment on above: Result Comment: The validity of the calculated GFR GFRAA in patients over70 years has not been determined. Clinical correlation isessential. Performed By: #### L 501.5200, L500.4050, L100.0100 ####[facility] [address] [place], [address] ECRCL 67.71 ml/min Normal [facility] Comment on above: Performed By: #### L 501.5200, L500.4050, L100.0100 ####[facility] [address] [place], [address] EST GFR - AA 106 mL/min Normal >60 [facility] Comment on above: Result Comment: Afri can Nigerian GFR Calc Performed By: #### L 501.5200, L500.4050, L100.0100 ####[facility] [address] [place], [address] GAP 7 Normal 5-15 [facility] Comment on above: Performed By: #### L 501.5200, L500.4050, L100.0100 ####[facility] [address] [place], [address] GFR/1.73 sq M.predicted among non-blacks MDRD (S/P/Bld) [Vol rate/Area] 88 mL/min/{1.73_m2} Normal >60 [facility] Comment on above: Result Comment: Non- GFR Calc Performed By: #### L 501.5200, L500.4050, L100.0100 ####[facility] [address] [place], [address] Globulin (S) [Mass/Vol] 3.2 g/dL Normal 2.2-4.2 [facility] Comment on above: Performed By: #### L 501.5200, L500.4050, L100.0100 ####[facility] [address] [place], [address] Glucose [Mass/Vol] 209 mg/dL High 74-106 [facility] Comment on above: Result Comment: Gluc ose result greater than or equal to 200 mg/dLsuggests DIABETES MELLITUS per A.D.A. criteria. Performed By: #### L 501.5200, L500.4050, L100.0100 ####[facility] [address] [place], [address] Potassium [Moles/Vol] 3.8 mmol/L Normal 3.5-5.1 [facility] Comment on above: Performed By: #### L 501.5200, L500.4050, L100.0100 ####[facility] [address] [place], [address] Sodium [Moles/Vol] 138 mmol/L Normal 136-145 [facility] Comment on above: Performed By: #### L 501.5200, L500.4050, L100.0100 ####[facility] [address] [place], [address] T PROT 6.3 g/dL Low 6.4-8.2 [facility] Comment on above: Performed By: #### L 501.5200, L500.4050, L100.0100 ####[facility] [address] [place], [address] Urea nitrogen [Mass/Vol] 9 mg/dL Normal 7-18 [facility] Comment on above: Performed By: #### L 501.5200, L500.4050, L100.0100 ####[facility] [address] [place], [address] Magnesiumon 08-09-2024 Magnesium [Mass/Vol] 1.5 mg/dL Low 1.6-2.6 [facility] Comment on above: Performed By: #### L 501.5200, L500.4050, L100.0100 ####[facility] [address] [place], [address] Oncology Visit Reporton 07-19 Oncology Visit Report Normal [facility] Segmented neutrophils/100 WB C (Bld)Ordered By: Shannan Waldrop on 08-09-2024 Neutrophils/100 WBC (Bld) 76 % High 47-70 [facility] Total cell countOrdered By: Shannan Waldrop on 08-09-2024 Cells counted Molgen (Bld/Tiss) [#] 100 MANUAL DIFF [facility] CBC W/Diff, Automatedon 07-18 PATH REV Reviewed Normal [facility] Comment on above: Result Comment: Leuk openia and neutropenia.Normocytic anemia.Clinical correlation necessary.Gamal Murillo M.D. 07/28/24 AMENDED REPORT 07/28/24 1356 PATH REV previously reported as: Jeanette hough Performed By: #### L 100.0100 ####[facility] [address] [place], [place], [id number] Blood metamyelocytes/100 nabeel kocytesOrdered By: Shannan Waldrop on 07-27-2024 Metamyelocytes/100 WBC (Bld) 3 % High 0-1 [facility] Blood promyelocytes/100 leuk ocytesOrdered By: Shannan Bullus on 07-27-2024 Promyelocytes/100 WBC (Bld) 2 % High 0-0 [facility] Erythrocyte morphology asses smentOrdered By: Shannan Waldrop on 07-27-2024 RBC morphology finding Nom (Bld) NORM C+C NORMAL NORM C&C [facility] Myelocyte %Ordered By: Ines Waldrop on 07-27-2024 Myelocytes/100 WBC (Bld) 6 % High 0-0 [facility] Oncology Visit Reporton 07-18 Oncology Visit Report Normal [facility] Promyelocytes/100 WBC (Bld)O rdered By: Shannan Waldrop on 07-27-2024 Promyelocytes % 2 % High 0-0 [facility] RBC morphology finding Nom ( Bld)Ordered By: Shannan Waldrop on 07-27-2024 Red Blood Cell Morphology NORM C+C NORMAL NORM C&C [facility] Venous Duplex US - Jose Extre mon 07-27-2024 Venous Duplex US - Jose Extrem Normal [facility] CBC W/Diff, Automatedon Absolute Lymph 0.79 X10 3/uL Low 0.83-4.51 [facility] Comment on above: Performed By: #### L 100.0100 ####[facility] [address] [place], [place], [id number] Absolute Neut 3.0 X10 3/uL Normal 2.0-7.7 [facility] Comment on above: Performed By: #### L 100.0100 ####[facility] [address] [place], [address] Basophils/100 WBC (Bld) 0.4 % Normal 0-1 [facility] Comment on above: Performed By: #### L 100.0100 ####[facility] [address] [place], [address] Eosinophils/100 WBC (Bld) 1.3 % Normal 0-5 [facility] Comment on above: Performed By: #### L 100.0100 ####[facility] [address] [place], [address] Erythrocyte distribution width (RBC) [Ratio] 17.2 % High 11.6-14.6 [facility] Comment on above: Performed By: #### L 100.0100 ####[facility] [address] [place], [address] Hematocrit (Bld) [Volume fraction] 32.5 % Low 37-47 [facility] Comment on above: Performed By: #### L 100.0100 ####[facility] [address] [place], [address] Hemoglobin (Bld) [Mass/Vol] 10.2 g/dL Low 12.0-15.0 [facility] Comment on above: Performed By: #### L 100.0100 ####[facility] [address] [place], [address] IG% 0.200 Normal 0.0-0.9 [facility] Comment on above: Result Comment: IG% - Immature Granulocytes (promyelocytes, myelocytes andmetamyelocytes) > 1% indicates that a LEFT SHIFT is Present. Performed By: #### L 100.0100 ####[facility] [address] [place], [address] Lymphocytes/100 WBC (Bld) 17.0 % Low 19-41 [facility] Comment on above: Performed By: #### L 100.0100 ####[facility] [address] [place], [address] MCH (RBC) [Entitic mass] 29.1 pg Normal 27.0-32.0 [facility] Comment on above: Performed By: #### L 100.0100 ####[facility] [address] [place], [address] MCHC (RBC) [Mass/Vol] 31.4 g/dL Low 32-36 [facility] Comment on above: Performed By: #### L 100.0100 ####[facility] [address] [place], [address] MCV (RBC) [Entitic vol] 92.6 fL Normal 81-99 [facility] Comment on above: Performed By: #### L 100.0100 ####[facility] [address] [place], [address] Monocytes/100 WBC (Bld) 15.7 % High 0-10 [facility] Comment on above: Performed By: #### L 100.0100 ####[facility] [address] [place], [address] Neutrophils/100 WBC (Bld) 65.4 % Normal 47-70 [facility] Comment on above: Performed By: #### L 100.0100 ####[facility] [address] [place], [address] Nucleated RBC (Bld) [#/Vol] 0 10*3/uL Normal 0-5 [facility] Comment on above: Performed By: #### L 100.0100 ####[facility] [address] [place], [address] Platelet mean volume (Bld) [Entitic vol] 8.7 fL Normal 6.2-12.0 [facility] Comment on above: Performed By: #### L 100.0100 ####[facility] [address] [place], [address] Platelets (Bld) [#/Vol] 311 10*3/uL Normal 150-450 [facility] Comment on above: Performed By: #### L 100.0100 ####[facility] [address] [place], [address] RBC (Bld) [#/Vol] 3.51 10*6/uL Low 4.2-5.4 [facility] Comment on above: Performed By: #### L 100.0100 ####[facility] [address] [place], [address] RDW SD 57.8 fl High 35.1-43.9 [facility] Comment on above: Performed By: #### L 100.0100 ####[facility] [address] [place], [address] WBC (Bld) [#/Vol] 4.7 10*3/uL Normal 4.4-11.0 [facility] Comment on above: Performed By: #### L 100.0100 ####[facility] [address] [place], [address] Absolute Neut Normal 2.0-7.7 [facility] Comment on above: Result Comment: DUPL ICATED TESTS Performed By: #### L 100.0100 ####[facility] [address] [place], [address] HCT Normal 37-47 [facility] Comment on above: Result Comment: DUPL ICATED TESTS Performed By: #### L 100.0100 ####[facility] [address] [place], [address] HGB Normal 12.0-15.0 [facility] Comment on above: Result Comment: DUPL ICATED TESTS Performed By: #### L 100.0100 ####[facility] [address] [place], [address] MCH Normal 27.0-32.0 [facility] Comment on above: Result Comment: DUPL ICATED TESTS Performed By: #### L 100.0100 ####[facility] [address] [place], [address] MCHC Normal 32-36 [facility] Comment on above: Result Comment: DUPL ICATED TESTS Performed By: #### L 100.0100 ####[facility] [address] [place], [address] MCV Normal 81-99 [facility] Comment on above: Result Comment: DUPL ICATED TESTS Performed By: #### L 100.0100 ####[facility] [address] [place], [address] NEUT% Normal 47-70 [facility] Comment on above: Result Comment: DUPL ICATED TESTS Performed By: #### L 100.0100 ####[facility] [address] [place], [address] PLT Normal 150-450 [facility] Comment on above: Result Comment: DUPL ICATED TESTS Performed By: #### L 100.0100 ####[facility] [address] [place], [address] RBC Normal 4.2-5.4 [facility] Comment on above: Result Comment: DUPL ICATED TESTS Performed By: #### L 100.0100 ####[facility] [address] [place], [address] RDW CV Normal 11.6-14.6 [facility] Comment on above: Result Comment: DUPL ICATED TESTS Performed By: #### L 100.0100 ####[facility] [address] [place], [address] RDW SD Normal 35.1-43.9 [facility] Comment on above: Result Comment: DUPL ICATED TESTS Performed By: #### L 100.0100 ####[facility] [address] [place], [address] WBC Normal 4.4-11.0 [facility] Comment on above: Result Comment: DUPL ICATED TESTS Performed By: #### L 100.0100 ####[facility] [address] [place], [address] Oncology Visit Reporton 120 Oncology Visit Report Normal [facility] Blood schistocyte detection by light microscopyOrdered By: Shannan Waldrop on 07-12-2024 Schistocytes RARE Normal [facility] Comment on above: Performed By: #### L 100.0100 ####[facility] [address] [place], [address] Schistocytes LM Ql (Bld) RARE [facility] CBC W/Diff, Automatedon 06-19 Anisocytosis Ql (Bld) 1+ Normal [facility] Comment on above: Performed By: #### L 100.0100 ####[facility] [address] [place], [address] OVALOCYTE 2+ Normal [facility] Comment on above: Performed By: #### L 100.0100 ####[facility] [address] [place], [address] POLYCHROMASIA 1+ Normal [facility] Comment on above: Performed By: #### L 100.0100 ####[facility] [address] [place], [address] TEAR DROP 1+ Normal [facility] Comment on above: Performed By: #### L 100.0100 ####[facility] [address] [place], [address] PLT EST ADEQUATE Normal ADEQ [facility] Comment on above: Performed By: #### L 100.0100 ####[facility] [address] [place], [address] SMEAR COMMENT SCANNED Normal [facility] Comment on above: Performed By: #### L 100.0100 ####[facility] [address] [place], [address] Macrocytes detectionOrdered By: Shannan Waldrop on 07-12-2024 Macrocytosis 1+ Normal [facility] Comment on above: Performed By: #### L 100.0100 ####[facility] [address] [place], [address] Macrocytes Ql (Bld) 1+ [facility] Oncology Visit Reporton 06-19 Oncology Visit Report Normal [facility] CBC W/Diff, Automatedon 06-18 Absolute Lymph 0.77 X10 3/uL Low 0.83-4.51 [facility] Comment on above: Performed By: #### L 501.5200, L100.0100, L500.4050 ####[facility] [address] [place], [address] Absolute Neut 4.1 X10 3/uL Normal 2.0-7.7 [facility] Comment on above: Performed By: #### L 501.5200, L100.0100, L500.4050 ####[facility] [address] [place], [address] Basophils/100 WBC (Bld) 0.7 % Normal 0-1 [facility] Comment on above: Performed By: #### L 501.5200, L100.0100, L500.4050 ####[facility] [address] [place], [address] Eosinophils/100 WBC (Bld) 0.9 % Normal 0-5 [facility] Comment on above: Performed By: #### L 501.5200, L100.0100, L500.4050 ####[facility] [address] [place], [address] Erythrocyte distribution width (RBC) [Ratio] 17.0 % High 11.6-14.6 [facility] Comment on above: Performed By: #### L 501.5200, L100.0100, L500.4050 ####[facility] [address] [place], [address] Hematocrit (Bld) [Volume fraction] 35.5 % Low 37-47 [facility] Comment on above: Performed By: #### L 501.5200, L100.0100, L500.4050 ####[facility] [address] [place], [address] Hemoglobin (Bld) [Mass/Vol] 11.2 g/dL Low 12.0-15.0 [facility] Comment on above: Performed By: #### L 501.5200, L100.0100, L500.4050 ####[facility] [address] [place], [address] IG% 0.500 Normal 0.0-0.9 [facility] Comment on above: Result Comment: IG% - Immature Granulocytes (promyelocytes, myelocytes andmetamyelocytes) > 1% indicates that a LEFT SHIFT is Present. Performed By: #### L 501.5200, L100.0100, L500.4050 ####[facility] [address] [place], [address] Lymphocytes/100 WBC (Bld) 13.4 % Low 19-41 [facility] Comment on above: Performed By: #### L 501.5200, L100.0100, L500.4050 ####[facility] [address] [place], [address] MCH (RBC) [Entitic mass] 29.1 pg Normal 27.0-32.0 [facility] Comment on above: Performed By: #### L 501.5200, L100.0100, L500.4050 ####[facility] [address] [place], [address] MCHC (RBC) [Mass/Vol] 31.5 g/dL Low 32-36 [facility] Comment on above: Performed By: #### L 501.5200, L100.0100, L500.4050 ####[facility] [address] [place], [address] MCV (RBC) [Entitic vol] 92.2 fL Normal 81-99 [facility] Comment on above: Performed By: #### L 501.5200, L100.0100, L500.4050 ####[facility] [address] [place], [address] Monocytes/100 WBC (Bld) 13.6 % High 0-10 [facility] Comment on above: Performed By: #### L 501.5200, L100.0100, L500.4050 ####[facility] [address] [place], [address] Neutrophils/100 WBC (Bld) 70.9 % High 47-70 [facility] Comment on above: Performed By: #### L 501.5200, L100.0100, L500.4050 ####[facility] [address] [place], [address] Nucleated RBC (Bld) [#/Vol] 0 10*3/uL Normal 0-5 [facility] Comment on above: Performed By: #### L 501.5200, L100.0100, L500.4050 ####[facility] [address] [place], [address] Platelet mean volume (Bld) [Entitic vol] 8.4 fL Normal 6.2-12.0 [facility] Comment on above: Performed By: #### L 501.5200, L100.0100, L500.4050 ####[facility] [address] [place], [address] Platelets (Bld) [#/Vol] 268 10*3/uL Normal 150-450 [facility] Comment on above: Performed By: #### L 501.5200, L100.0100, L500.4050 ####[facility] [address] [place], [address] RBC (Bld) [#/Vol] 3.85 10*6/uL Low 4.2-5.4 [facility] Comment on above: Performed By: #### L 501.5200, L100.0100, L500.4050 ####[facility] [address] [place], [address] RDW SD 56.9 fl High 35.1-43.9 [facility] Comment on above: Performed By: #### L 501.5200, L100.0100, L500.4050 ####[facility] [address] [place], [address] WBC (Bld) [#/Vol] 5.8 10*3/uL Normal 4.4-11.0 [facility] Comment on above: Performed By: #### L 501.5200, L100.0100, L500.4050 ####[facility] [address] [place], [address] Comprehensive Metabolic Prof ilon 07-05-2024 Albumin [Mass/Vol] 3.5 g/dL Normal 3.2-5.0 [facility] Comment on above: Performed By: #### L 501.5200, L100.0100, L500.4050 ####[facility] [address] [place], [address] Albumin/Globulin [Mass ratio] 0.9 {ratio} Normal 0.9-2.4 [facility] Comment on above: Performed By: #### L 501.5200, L100.0100, L500.4050 ####[facility] [address] [place], [address] ALK P 73 U/L Normal 45-117 [facility] Comment on above: Performed By: #### L 501.5200, L100.0100, L500.4050 ####[facility] [address] [place], [address] ALT [Catalytic activity/Vol] 16 U/L Normal 13-56 [facility] Comment on above: Performed By: #### L 501.5200, L100.0100, L500.4050 ####[facility] [address] [place], [address] AST [Catalytic activity/Vol] 16 U/L Normal 15-37 [facility] Comment on above: Performed By: #### L 501.5200, L100.0100, L500.4050 ####[facility] [address] [place], [address] Bilirubin [Mass/Vol] 0.50 mg/dL Normal 0.20-1.00 [facility] Comment on above: Result Comment: For patients on eltrombopag therapy, use of Dimension [employer] TBIL is not recommended. Performed By: #### L 501.5200, L100.0100, L500.4050 ####[facility] [address] [place], [address] BUN/CRE 12.3 RATIO Normal 10-20 [facility] Comment on above: Performed By: #### L 501.5200, L100.0100, L500.4050 ####[facility] [address] [place], [address] CA,Total 9.2 mg/dL Normal 8.5-10.1 [facility] Comment on above: Performed By: #### L 501.5200, L100.0100, L500.4050 ####[facility] [address] [place], [address] Chloride [Moles/Vol] 104 mmol/L Normal 98-107 [facility] Comment on above: Performed By: #### L 501.5200, L100.0100, L500.4050 ####[facility] [address] [place], [address] CO2 [Moles/Vol] 24.0 mmol/L Normal 21.0-32.0 [facility] Comment on above: Performed By: #### L 501.5200, L100.0100, L500.4050 ####[facility] [address] [place], [address] Creatinine [Mass/Vol] 0.82 mg/dL Normal 0.55-1.02 [facility] Comment on above: Result Comment: The validity of the calculated GFR GFRAA in patients over70 years has not been determined. Clinical correlation isessential. Performed By: #### L 501.5200, L100.0100, L500.4050 ####[facility] [address] [place], [address] ECRCL 64.69 ml/min Normal [facility] Comment on above: Performed By: #### L 501.5200, L100.0100, L500.4050 ####[facility] [facility] [address] [place], [address] EST GFR - AA 89 mL/min Normal >60 [facility] Comment on above: Result Comment: Afri can Nigerian GFR Calc Performed By: #### L 501.5200, L100.0100, L500.4050 ####[facility] [address] [place], [address] GAP 12 Normal 5-15 [facility] Comment on above: Performed By: #### L 501.5200, L100.0100, L500.4050 ####[facility] [address] [place], [address] GFR/1.73 sq M.predicted among non-blacks MDRD (S/P/Bld) [Vol rate/Area] 74 mL/min/{1.73_m2} Normal >60 [facility] Comment on above: Result Comment: Non- GFR Calc Performed By: #### L 501.5200, L100.0100, L500.4050 ####[facility] [address] [place], [address] Globulin (S) [Mass/Vol] 3.7 g/dL Normal 2.2-4.2 [facility] Comment on above: Performed By: #### L 501.5200, L100.0100, L500.4050 ####[facility] [address] [place], [address] Glucose [Mass/Vol] 173 mg/dL High 74-106 [facility] Comment on above: Result Comment: Fast ing Glucose result greater than or equal to 126 mg/dLsuggests DIABETES MELLITUS per A.D.A. criteria. Performed By: #### L 501.5200, L100.0100, L500.4050 ####[facility] [address] [place], [address] Potassium [Moles/Vol] 4.2 mmol/L Normal 3.5-5.1 [facility] Comment on above: Performed By: #### L 501.5200, L100.0100, L500.4050 ####[facility] [address] [place], [address] Sodium [Moles/Vol] 140 mmol/L Normal 136-145 [facility] Comment on above: Performed By: #### L 501.5200, L100.0100, L500.4050 ####[facility] [address] [place], [address] T PROT 7.2 g/dL Normal 6.4-8.2 [facility] Comment on above: Performed By: #### L 501.5200, L100.0100, L500.4050 ####[facility] [address] [place], [address] Urea nitrogen [Mass/Vol] 10 mg/dL Normal 03-04 [facility] Comment on above: Performed By: #### L 501.5200, L100.0100, L500.4050 ####[facility] [address] [place], [address] Magnesiumon 07-05-2024 Magnesium [Mass/Vol] 1.4 mg/dL Low 1.6-2.6 [facility] Comment on above: Performed By: #### L 501.5200, L100.0100, L500.4050 ####[facility] [address] [place], [address] Oncology Visit Reporton 06-18 Oncology Visit Report Normal [facility] 09-UH-Uapxgks DOrdered By: Nataly Christianson on 06-28-2024 Vitamin D 25-Hydroxy 92.5 ng/mL [facility] Comment on above: Vitamin D 25(OH) Sta tus Range Deficiency <20 ng/mL (50nmol/L) Insufficiency 20 - 30 ng/mL (50 - 75 nmol/L) Sufficiency 30 - 100 ng/mL (75 - 250 nmol/L) Toxicity >100 ng/mL (>250 nmol/L) CBC W/Diff, Automatedon 06-18 Absolute Lymph 0.96 X10 3/uL Normal 0.83-4.51 [facility] Comment on above: Performed By: #### L 500.4050, L501.5200, L100.0100 ####[facility] [address] [place], [address] Absolute Neut 3.0 X10 3/uL Normal 2.0-7.7 [facility] Comment on above: Performed By: #### L 500.4050, L501.5200, L100.0100 ####[facility] [address] [place], [address] Basophils/100 WBC (Bld) 0.4 % Normal 0-1 [facility] Comment on above: Performed By: #### L 500.4050, L501.5200, L100.0100 ####[facility] [address] [place], [address] Eosinophils/100 WBC (Bld) 2.4 % Normal 0-5 [facility] Comment on above: Performed By: #### L 500.4050, L501.5200, L100.0100 ####[facility] [address] [place], [address] Erythrocyte distribution width (RBC) [Ratio] 17.4 % High 11.6-14.6 [facility] Comment on above: Performed By: #### L 500.4050, L501.5200, L100.0100 ####[facility] [address] [place], [address] Hematocrit (Bld) [Volume fraction] 35.1 % Low 37-47 [facility] Comment on above: Performed By: #### L 500.4050, L501.5200, L100.0100 ####[facility] [address] [place], [address] Hemoglobin (Bld) [Mass/Vol] 11.4 g/dL Low 12.0-15.0 [facility] Comment on above: Performed By: #### L 500.4050, L501.5200, L100.0100 ####[facility] [address] [place], [address] IG% 0.400 Normal 0.0-0.9 [facility] Comment on above: Result Comment: IG% - Immature Granulocytes (promyelocytes, myelocytes andmetamyelocytes) > 1% indicates that a LEFT SHIFT is Present. Performed By: #### L 500.4050, L501.5200, L100.0100 ####[facility] [address] [place], [address] Lymphocytes/100 WBC (Bld) 19.5 % Normal 19-41 [facility] Comment on above: Performed By: #### L 500.4050, L501.5200, L100.0100 ####[facility] [address] [place], [address] MCH (RBC) [Entitic mass] 29.8 pg Normal 27.0-32.0 [facility] Comment on above: Performed By: #### L 500.4050, L501.5200, L100.0100 ####[facility] [address] [place], [address] MCHC (RBC) [Mass/Vol] 32.5 g/dL Normal 32-36 [facility] Comment on above: Performed By: #### L 500.4050, L501.5200, L100.0100 ####[facility] [address] [place], [address] MCV (RBC) [Entitic vol] 91.9 fL Normal 81-99 [facility] Comment on above: Performed By: #### L 500.4050, L501.5200, L100.0100 ####[facility] [address] [place], [address] Monocytes/100 WBC (Bld) 15.9 % High 0-10 [facility] Comment on above: Performed By: #### L 500.4050, L501.5200, L100.0100 ####[facility] [address] [place], [address] Neutrophils/100 WBC (Bld) 61.4 % Normal 47-70 [facility] Comment on above: Performed By: #### L 500.4050, L501.5200, L100.0100 ####[facility] [address] [place], [address] Nucleated RBC (Bld) [#/Vol] 0 10*3/uL Normal 0-5 [facility] Comment on above: Performed By: #### L 500.4050, L501.5200, L100.0100 ####[facility] [address] [place], [address] Platelet mean volume (Bld) [Entitic vol] 8.5 fL Normal 6.2-12.0 [facility] Comment on above: Performed By: #### L 500.4050, L501.5200, L100.0100 ####[facility] [address] [place], [address] Platelets (Bld) [#/Vol] 251 10*3/uL Normal 150-450 [facility] Comment on above: Performed By: #### L 500.4050, L501.5200, L100.0100 ####[facility] [address] [place], [address] RBC (Bld) [#/Vol] 3.82 10*6/uL Low 4.2-5.4 [facility] Comment on above: Performed By: #### L 500.4050, L501.5200, L100.0100 ####[facility] [address] [place], [address] RDW SD 59.3 fl High 35.1-43.9 [facility] Comment on above: Performed By: #### L 500.4050, L501.5200, L100.0100 ####[facility] [address] [place], [address] WBC (Bld) [#/Vol] 4.9 10*3/uL Normal 4.4-11.0 [facility] Comment on above: Performed By: #### L 500.4050, L501.5200, L100.0100 ####[facility] [address] [place], [address] Absolute Neut Normal 2.0-7.7 [facility] Comment on above: Order Comment: Order Date: 05/20/24Order Info: [id number] - CBCD Result Comment: PT H AD DRAWN FOR DR WALDROP SAME DAY Performed By: #### L 500.4100, L501.9985, L506.1000, L100.0100 ####[facility] [address] [place], [address] HCT Normal 37-47 [facility] Comment on above: Order Comment: Order Date: 05/20/24Order Info: [id number] - CBCD Result Comment: PT H AD DRAWN FOR DR WALDROP SAME DAY Performed By: #### L 500.4100, L501.9985, L506.1000, L100.0100 ####[facility] [address] [place], [address] HGB Normal 12.0-15.0 [facility] Comment on above: Order Comment: Order Date: 05/20/24Order Info: [id number] - CBCD Result Comment: PT H AD DRAWN FOR DR WALDROP SAME DAY Performed By: #### L 500.4100, L501.9985, L506.1000, L100.0100 ####[facility] [address] [place], [address] MCH Normal 27.0-32.0 [facility] Comment on above: Order Comment: Order Date: 05/20/24Order Info: [id number] - CBCD Result Comment: PT H AD DRAWN FOR DR WALDROP SAME DAY Performed By: #### L 500.4100, L501.9985, L506.1000, L100.0100 ####[facility] [address] [place], [address] MCHC Normal 32-36 [facility] Comment on above: Order Comment: Order Date: 05/20/24Order Info: [id number] - CBCD Result Comment: PT H AD DRAWN FOR DR WALDROP SAME DAY Performed By: #### L 500.4100, L501.9985, L506.1000, L100.0100 ####[facility] [address] [place], [address] MCV Normal 81-99 [facility] Comment on above: Order Comment: Order Date: 05/20/24Order Info: [id number] - CBCD Result Comment: PT H AD DRAWN FOR DR WALDROP SAME DAY Performed By: #### L 500.4100, L501.9985, L506.1000, L100.0100 ####[facility] [address] [place], [address] NEUT% Normal 47-70 [facility] Comment on above: Order Comment: Order Date: 05/20/24Order Info: [id number] - CBCD Result Comment: PT H AD DRAWN FOR DR WALDROP SAME DAY Performed By: #### L 500.4100, L501.9985, L506.1000, L100.0100 ####[facility] [address] [place], [address] PLT Normal 150-450 [facility] Comment on above: Order Comment: Order Date: 05/20/24Order Info: [id number] - CBCD Result Comment: PT H AD DRAWN FOR DR WALDROP SAME DAY Performed By: #### L 500.4100, L501.9985, L506.1000, L100.0100 ####[facility] [address] [place], [address] RBC Normal 4.2-5.4 [facility] Comment on above: Order Comment: Order Date: 05/20/24Order Info: [id number] - CBCD Result Comment: PT H AD DRAWN FOR DR WALDROP SAME DAY Performed By: #### L 500.4100, L501.9985, L506.1000, L100.0100 ####[facility] [address] [place], [address] RDW CV Normal 11.6-14.6 [facility] Comment on above: Order Comment: Order Date: 05/20/24Order Info: [id number] - CBCD Result Comment: PT H AD DRAWN FOR DR WALDROP SAME DAY Performed By: #### L 500.4100, L501.9985, L506.1000, L100.0100 ####[facility] [address] [place], [address] RDW SD Normal 35.1-43.9 [facility] Comment on above: Order Comment: Order Date: 05/20/24Order Info: [id number] - CBCD Result Comment: PT H AD DRAWN FOR DR WALDROP SAME DAY Performed By: #### L 500.4100, L501.9985, L506.1000, L100.0100 ####[facility] [address] [place], [address] WBC Normal 4.4-11.0 [facility] Comment on above: Order Comment: Order Date: 05/20/24Order Info: [id number] - CBCD Result Comment: PT H AD DRAWN FOR DR WALDROP SAME DAY Performed By: #### L 500.4100, L501.9985, L506.1000, L100.0100 ####[facility] [address] [place], [address] Comprehensive Metabolic Prof ilon 06-28-2024 Albumin [Mass/Vol] 3.4 g/dL Normal 3.2-5.0 [facility] Comment on above: Performed By: #### L 500.4050, L501.5200, L100.0100 ####[facility] [address] [place], [address] Albumin/Globulin [Mass ratio] 0.9 {ratio} Normal 0.9-2.4 [facility] Comment on above: Performed By: #### L 500.4050, L501.5200, L100.0100 ####[facility] [address] [place], [address] ALK P 77 U/L Normal 45-117 [facility] Comment on above: Performed By: #### L 500.4050, L501.5200, L100.0100 ####[facility] [address] [place], [address] ALT [Catalytic activity/Vol] 20 U/L Normal 13-56 [facility] Comment on above: Performed By: #### L 500.4050, L501.5200, L100.0100 ####[facility] [address] [place], [address] AST [Catalytic activity/Vol] 21 U/L Normal 15-37 [facility] Comment on above: Performed By: #### L 500.4050, L501.5200, L100.0100 ####[facility] [address] [place], [address] Bilirubin [Mass/Vol] 0.40 mg/dL Normal 0.20-1.00 [facility] Comment on above: Result Comment: For patients on eltrombopag therapy, use of Dimension [employer] TBIL is not recommended. Performed By: #### L 500.4050, L501.5200, L100.0100 ####[facility] [address] [place], [address] BUN/CRE 15.9 RATIO Normal 10-20 [facility] Comment on above: Performed By: #### L 500.4050, L501.5200, L100.0100 ####[facility] [address] [place], [address] CA,Total 9.6 mg/dL Normal 8.5-10.1 [facility] Comment on above: Performed By: #### L 500.4050, L501.5200, L100.0100 ####[facility] [address] [place], [address] Chloride [Moles/Vol] 107 mmol/L Normal 98-107 [facility] Comment on above: Performed By: #### L 500.4050, L501.5200, L100.0100 ####[facility] [address] [place], [address] CO2 [Moles/Vol] 23.0 mmol/L Normal 21.0-32.0 [facility] Comment on above: Performed By: #### L 500.4050, L501.5200, L100.0100 ####[facility] [address] [place], [address] Creatinine [Mass/Vol] 0.75 mg/dL Normal 0.55-1.02 [facility] Comment on above: Result Comment: The validity of the calculated GFR GFRAA in patients over70 years has not been determined. Clinical correlation isessential. Performed By: #### L 500.4050, L501.5200, L100.0100 ####[facility] [address] [place], [address] ECRCL 66.31 ml/min Normal [facility] Comment on above: Performed By: #### L 500.4050, L501.5200, L100.0100 ####[facility] [address] [place], [address] EST GFR - AA 98 mL/min Normal >60 [facility] Comment on above: Result Comment: Afri can Nigerian GFR Calc Performed By: #### L 500.4050, L501.5200, L100.0100 ####[facility] [address] [place], [address] GAP 7 Normal 5-15 [facility] Comment on above: Performed By: #### L 500.4050, L501.5200, L100.0100 ####[facility] [address] [place], [address] GFR/1.73 sq M.predicted among non-blacks MDRD (S/P/Bld) [Vol rate/Area] 81 mL/min/{1.73_m2} Normal >60 [facility] Comment on above: Result Comment: Non- GFR Calc Performed By: #### L 500.4050, L501.5200, L100.0100 ####[facility] [address] [place], [address] Globulin (S) [Mass/Vol] 3.8 g/dL Normal 2.2-4.2 [facility] Comment on above: Performed By: #### L 500.4050, L501.5200, L100.0100 ####[facility] [address] [place], [address] Glucose [Mass/Vol] 180 mg/dL High 74-106 [facility] Comment on above: Result Comment: Fast ing Glucose result greater than or equal to 126 mg/dLsuggests DIABETES MELLITUS per A.D.A. criteria. Performed By: #### L 500.4050, L501.5200, L100.0100 ####[facility] [address] [place], [address] Potassium [Moles/Vol] 4.0 mmol/L Normal 3.5-5.1 [facility] Comment on above: Performed By: #### L 500.4050, L501.5200, L100.0100 ####[facility] [address] [place], [address] Sodium [Moles/Vol] 137 mmol/L Normal 136-145 [facility] Comment on above: Performed By: #### L 500.4050, L501.5200, L100.0100 ####[facility] [address] [place], [address] T PROT 7.2 g/dL Normal 6.4-8.2 [facility] Comment on above: Performed By: #### L 500.4050, L501.5200, L100.0100 ####[facility] [address] [place], [address] Urea nitrogen [Mass/Vol] 12 mg/dL Normal 7-18 [facility] Comment on above: Performed By: #### L 500.4050, L501.5200, L100.0100 ####[facility] [address] [place], [address] Hemoglobin A1con 06-28-2024 HbA1c (Bld) [Mass fraction] 7.1 % High 3.8-5.6 [facility] Comment on above: Order Comment: PT GOMES D CMP, CBCD DRAW FOR DR WALDROP ON SAME DATE YOU CANSEE THOSE RESULTSOrder Date: 05/20/24Order Info: [id number] - A1C Result Comment: Norm al < 5.7 % Prediabetic 5.7 - 6.4 % Diabetic >or= 6.5 % Please note range changes. Performed By: #### L 500.4100, L501.9985, L506.1000, L100.0100 ####[facility] [address] [place], [address] Hemoglobin A1c percentageOrd ered By: Sharif Christianson on 06-28-2024 HbA1c (Bld) [Mass fraction] 7.1 % High 3.8-5.6 [facility] Comment on above: Normal < 5.7 % Predi abetic 5.7 - 6.4 % Diabetic >or= 6.5 % Please note range changes. High density lipoprotein (HD L) measurementOrdered By: Sharif Christianson on 06-28-2024 Cholesterol in HDL [Mass/Vol] 54 mg/dL >40 [facility] Comment on above: The drugs N-Acetylcy steine and Metamizole may falsely depress this assay. Reference Range HDL <40 mg/dL Low HDL Cholesterol HDL >or= 60 mg/dL High HDL Cholesterol Lipid Profileon 06-28-2024 Cholesterol [Mass/Vol] 108 mg/dL Normal 200 [facility] Comment on above: Order Comment: PT GOMES D CMP, CBCD DRAW FOR DR WALDROP ON SAME DATE YOU CANSEE THOSE RESULTS Result Comment: <200 mg/dL Desirable 200-240 mg/dL Borderline >240 mg/dL High Risk Performed By: #### L 500.4100, L501.9985, L506.1000, L100.0100 ####[facility] [address] [place], [address] Cholesterol in HDL [Mass/Vol] 54 mg/dL Normal [facility] Comment on above: Order Comment: PT GOMES D CMP, CBCD DRAW FOR DR WALDROP ON SAME DATE YOU CANSEE THOSE RESULTS Result Comment: The drugs N-Acetylcysteine and Metamizole may falselydepress this assay. Reference Range HDL <40 mg/dL Low HDL Cholesterol HDL >or= 60 mg/dL High HDL Cholesterol Performed By: #### L 500.4100, L501.9985, L506.1000, L100.0100 ####[facility] [address] [place], [address] Cholesterol in LDL [Mass/Vol] 26 mg/dL Normal 0-130 [facility] Comment on above: Order Comment: PT GOMES D CMP, CBCD DRAW FOR DR WALDROP ON SAME DATE YOU CANSEE THOSE RESULTS Performed By: #### L 500.4100, L501.9985, L506.1000, L100.0100 ####[facility] [address] [place], [address] Cholesterol in VLDL [Mass/Vol] 28 mg/dL Normal 5-40 [facility] Comment on above: Order Comment: PT GOMES Kb CMP, CBCD DRAW FOR DR WALDROP ON SAME DATE YOU CANSEE THOSE RESULTS Performed By: #### L 500.4100, L501.9985, L506.1000, L100.0100 ####[facility] [address] [place], [address] Triglyceride [Mass/Vol] 142 mg/dL Normal [facility] Comment on above: Order Comment: PT GOMES Kb CMP, CBCD DRAW FOR DR WALDROP ON SAME DATE YOU CANSEE THOSE RESULTS Result Comment: The drugs N-Acetylcysteine and Metamizole may falselydepress this assay.Serum Triglycerides Reference Interval Normal <150 mg/dL Borderline high 150 - 199 mg/dL High 200 - 499 mg/dL Very High > or = 500 mg/dL Performed By: #### L 500.4100, L501.9985, L506.1000, L100.0100 ####[facility] [address] [place], [address] Low density lipoprotein (LDL ) cholesterol measurementOrdered By: Sharif Christianson on 06-28-2024 Cholesterol in LDL [Mass/Vol] 26 mg/dL 0-130 [facility] Magnesiumon 06-28-2024 Magnesium [Mass/Vol] 1.3 mg/dL Low 1.6-2.6 [facility] Comment on above: Performed By: #### L 500.4050, L501.5200, L100.0100 ####[facility] [address] [place], [address] Oncology Visit Reporton 06-18 Oncology Visit Report Normal [facility] Serum or plasma cholesterol measurement (mass/volume)Ordered By: Sharif Christianson on 06-28-2024 Cholesterol [Mass/Vol] 108 mg/dL <200 [facility] Comment on above: <200 mg/dL Desirable 200-240 mg/dL Borderline >240 mg/dL High Risk Triglycerides measurementOrd ered By: Sharif Christianson on 06-28-2024 Triglyceride [Mass/Vol] 142 mg/dL <199 [facility] Comment on above: The drugs N-Acetylcy steine and Metamizole may falsely depress this assay.Serum Triglycerides Reference Interval Normal <150 mg/dL Borderline high 150 - 199 mg/dL High 200 - 499 mg/dL Very High > or = 500 mg/dL Very low density lipoprotein (VLDL) cholesterol measurementOrdered By: Sharif Christianson on 06-28-2024 Very low density lipoprotein (VLDL) cholesterol measurement 28 mg/dL -40 [facility] VLDL Cholesterol 28 mg/dL 40 [facility] Vitamin D,25 Hydroxyon 06-28 Vitamin D 25-OH 92.5 ng/mL Normal [facility] Comment on above: Order Comment: PT GOMES D CMP, CBCD DRAW FOR DR WALDROP ON SAME DATE YOU CANSEE THOSE RESULTS+Order Date: 05/20/24Order Info: [id number] - [id number] Result Comment: Sariah min D 25(OH) Status Range Deficiency <20 ng/mL (50nmol/L) Insufficiency 20 - 30 ng/mL (50 - 75 nmol/L) Sufficiency 30 - 100 ng/mL (75 - 250 nmol/L) Toxicity >100 ng/mL (>250 nmol/L) Performed By: #### L 500.4100, L501.9985, L506.1000, L100.0100 ####[facility] [address] [place], [place], [id number] Microalb:Creat Ratio,Random URon 06-24-2024 Creatinine [Mass/Vol] 100.00 mg/dL Normal NO RANGE EST . [facility] Comment on above: Order Comment: Order Date: 05/20/24Order Info: [id number] - MIACRE Performed By: #### L 502.0250 ####[facility] [address] [place], [address] MALB:CRE 9.9 mg/g CRE Normal <30 mg/g CRE [facility] Comment on above: Order Comment: Order Date: 05/20/24Order Info: [id number] - MIACRE Performed By: #### L 502.0250 ####[facility] [address] [place], [address] MICROALBUMIN,UR 9.9 mg/L Normal NO RANGE EST. [facility] Comment on above: Order Comment: Order Date: 05/20/24Order Info: [id number] - MIACRE Performed By: #### L 502.0250 ####[facility] [address] [place], [address] CBC W/Diff, Automatedon 10-3 0-2023 Absolute Neut Normal 2.0-7.7 [facility] Comment on above: Result Comment: PT N OT GETTING LABS PER INFUSION NURSE SANTANA. Performed By: #### L 500.4050, L100.0100 ####[facility] [address] [place], [address] HCT Normal 37-47 [facility] Comment on above: Result Comment: PT N OT GETTING LABS PER INFUSION NURSE SANTANA. Performed By: #### L 500.4050, L100.0100 ####[facility] [address] [place], [address] HGB Normal 12.0-15.0 [facility] Comment on above: Result Comment: PT N OT GETTING LABS PER INFUSION NURSE SANTANA. Performed By: #### L 500.4050, L100.0100 ####[facility] [address] [place], [address] MCH Normal 27.0-32.0 [facility] Comment on above: Result Comment: PT N OT GETTING LABS PER INFUSION NURSE SANTANA. Performed By: #### L 500.4050, L100.0100 ####[facility] [address] [place], [address] MCHC Normal 32-36 [facility] Comment on above: Result Comment: PT N OT GETTING LABS PER INFUSION NURSE SANTANA. Performed By: #### L 500.4050, L100.0100 ####[facility] [address] [place], [address] MCV Normal 81-99 [facility] Comment on above: Result Comment: PT N OT GETTING LABS PER INFUSION NURSE SANTANA. Performed By: #### L 500.4050, L100.0100 ####[facility] [address] [place], [address] NEUT% Normal 47-70 [facility] Comment on above: Result Comment: PT N OT GETTING LABS PER INFUSION NURSE SANTANA. Performed By: #### L 500.4050, L100.0100 ####[facility] [address] [place], [address] PLT Normal 150-450 [facility] Comment on above: Result Comment: PT N OT GETTING LABS PER INFUSION NURSE SANTANA. Performed By: #### L 500.4050, L100.0100 ####[facility] [address] [place], [address] RBC Normal 4.2-5.4 [facility] Comment on above: Result Comment: PT N OT GETTING LABS PER INFUSION NURSE SANTANA. Performed By: #### L 500.4050, L100.0100 ####[facility] [address] [place], [address] RDW CV Normal 11.6-14.6 [facility] Comment on above: Result Comment: PT N OT GETTING LABS PER INFUSION NURSE SANTANA. Performed By: #### L 500.4050, L100.0100 ####[facility] [address] [place], [address] RDW SD Normal 35.1-43.9 [facility] Comment on above: Result Comment: PT N OT GETTING LABS PER INFUSION NURSE SANTANA. Performed By: #### L 500.4050, L100.0100 ####[facility] [address] [place], [address] WBC Normal 4.4-11.0 [facility] Comment on above: Result Comment: PT N OT GETTING LABS PER INFUSION NURSE SANTANA. Performed By: #### L 500.4050, L100.0100 ####[facility] [address] [place], [address] Comprehensive Metabolic Prof ilon 06-16-2024 ALB Normal 3.2-5.0 [facility] Comment on above: Result Comment: PT N OT GETTING LABS PER INFUSION NURSE SANTANA. Performed By: #### L 500.4050, L100.0100 ####[facility] [address] [place], [address] ALK P Normal 45-117 [facility] Comment on above: Result Comment: PT N OT GETTING LABS PER INFUSION NURSE SANTANA. Performed By: #### L 500.4050, L100.0100 ####[facility] [address] [place], [address] ALT Normal 13-56 [facility] Comment on above: Result Comment: PT N OT GETTING LABS PER INFUSION NURSE SANTANA. Performed By: #### L 500.4050, L100.0100 ####[facility] [address] [place], [address] AST Normal 15-37 [facility] Comment on above: Result Comment: PT N OT GETTING LABS PER INFUSION NURSE SANTANA. Performed By: #### L 500.4050, L100.0100 ####[facility] [address] [place], [address] BUN Normal 7-18 [facility] Comment on above: Result Comment: PT N OT GETTING LABS PER INFUSION NURSE SANTANA. Performed By: #### L 500.4050, L100.0100 ####[facility] [address] [place], [address] BUN/CRE Normal 10-20 [facility] Comment on above: Result Comment: PT N OT GETTING LABS PER INFUSION NURSE SANTANA. Performed By: #### L 500.4050, L100.0100 ####[facility] [address] [place], [address] CA,Total Normal 8.5-10.1 [facility] Comment on above: Result Comment: PT N OT GETTING LABS PER INFUSION NURSE SANTANA. Performed By: #### L 500.4050, L100.0100 ####[facility] [address] [place], [address] CL Normal 98-107 [facility] Comment on above: Result Comment: PT N OT GETTING LABS PER INFUSION NURSE SANTANA. Performed By: #### L 500.4050, L100.0100 ####[facility] [address] [place], [address] CO2 Normal 21.0-32.0 [facility] Comment on above: Result Comment: PT N OT GETTING LABS PER INFUSION NURSE SANTANA. Performed By: #### L 500.4050, L100.0100 ####[facility] [address] [place], [address] CREAT,SERUM Normal 0.55-1.02 [facility] Comment on above: Result Comment: PT N OT GETTING LABS PER INFUSION NURSE SANTANA. Performed By: #### L 500.4050, L100.0100 ####[facility] [address] [place], [address] EST GFR Normal >60 [facility] Comment on above: Result Comment: PT N OT GETTING LABS PER INFUSION NURSE SANTANA. Performed By: #### L 500.4050, L100.0100 ####[facility] [address] [place], [address] EST GFR - AA Normal >60 [facility] Comment on above: Result Comment: PT N OT GETTING LABS PER INFUSION NURSE SANTANA. Performed By: #### L 500.4050, L100.0100 ####[facility] [address] [place], [address] GAP Normal 5-15 [facility] Comment on above: Result Comment: PT N OT GETTING LABS PER INFUSION NURSE SANTANA. Performed By: #### L 500.4050, L100.0100 ####[facility] [address] [place], [address] GLU Normal 74-106 [facility] Comment on above: Result Comment: PT N OT GETTING LABS PER INFUSION NURSE SANTANA. Performed By: #### L 500.4050, L100.0100 ####[facility] [address] [place], [address] Potassium Normal 3.5-5.1 [facility] Comment on above: Result Comment: PT N OT GETTING LABS PER INFUSION NURSE SANTANA. Performed By: #### L 500.4050, L100.0100 ####[facility] [address] [place], [address] T BILI Normal 0.20-1.00 [facility] Comment on above: Result Comment: PT N OT GETTING LABS PER INFUSION NURSE SANTANA. Performed By: #### L 500.4050, L100.0100 ####[facility] [address] [place], [address] T PROT Normal 6.4-8.2 [facility] Comment on above: Result Comment: PT N OT GETTING LABS PER INFUSION NURSE SANTANA. Performed By: #### L 500.4050, L100.0100 ####[facility] [address] [place], [address] Comprehensive Metabolic Profil Normal 136-145 [facility] Comment on above: Result Comment: PT N OT GETTING LABS PER INFUSION NURSE SANTANA. Performed By: #### L 500.4050, L100.0100 ####[facility] [address] [place], [address] CBC W/Diff, Automatedon 10-1 Absolute Lymph 0.63 X10 3/uL Low 0.83-4.51 [facility] Comment on above: Performed By: #### L 100.0100, L500.4050 ####[facility] [address] [place], [address] Absolute Neut 8.7 X10 3/uL High 2.0-7.7 [facility] Comment on above: Performed By: #### L 100.0100, L500.4050 ####[facility] [address] [place], [address] Basophils/100 WBC (Bld) 0.1 % Normal 0-1 [facility] Comment on above: Performed By: #### L 100.0100, L500.4050 ####[facility] [address] [place], [address] Eosinophils/100 WBC (Bld) 0.0 % Normal 0-5 [facility] Comment on above: Performed By: #### L 100.0100, L500.4050 ####[facility] [address] [place], [address] Erythrocyte distribution width (RBC) [Ratio] 17.7 % High 11.6-14.6 [facility] Comment on above: Performed By: #### L 100.0100, L500.4050 ####[facility] [address] [place], [address] Hematocrit (Bld) [Volume fraction] 31.9 % Low 37-47 [facility] Comment on above: Performed By: #### L 100.0100, L500.4050 ####[facility] [address] [place], [address] Hemoglobin (Bld) [Mass/Vol] 10.2 g/dL Low 12.0-15.0 [facility] Comment on above: Performed By: #### L 100.0100, L500.4050 ####[facility] [address] [place], [address] IG% 1.100 High 0.0-0.9 [facility] Comment on above: Result Comment: IG% - Immature Granulocytes (promyelocytes, myelocytes andmetamyelocytes) > 1% indicates that a LEFT SHIFT is Present. Performed By: #### L 100.0100, L500.4050 ####[facility] [address] [place], [address] Lymphocytes/100 WBC (Bld) 6.3 % Low 19-41 [facility] Comment on above: Performed By: #### L 100.0100, L500.4050 ####[facility] [address] [place], [address] MCH (RBC) [Entitic mass] 29.9 pg Normal 27.0-32.0 [facility] Comment on above: Performed By: #### L 100.0100, L500.4050 ####[facility] [address] [place], [address] MCHC (RBC) [Mass/Vol] 32.0 g/dL Normal 32-36 [facility] Comment on above: Performed By: #### L 100.0100, L500.4050 ####[facility] [address] [place], [address] MCV (RBC) [Entitic vol] 93.5 fL Normal 81-99 [facility] Comment on above: Performed By: #### L 100.0100, L500.4050 ####[facility] [address] [place], [address] Monocytes/100 WBC (Bld) 5.9 % Normal 0-10 [facility] Comment on above: Performed By: #### L 100.0100, L500.4050 ####[facility] [address] [place], [address] Neutrophils/100 WBC (Bld) 86.6 % High 47-70 [facility] Comment on above: Performed By: #### L 100.0100, L500.4050 ####[facility] [address] [place], [address] Nucleated RBC (Bld) [#/Vol] 0 10*3/uL Normal 0-5 [facility] Comment on above: Performed By: #### L 100.0100, L500.4050 ####[facility] [address] [place], [address] Platelet mean volume (Bld) [Entitic vol] 8.6 fL Normal 6.2-12.0 [facility] Comment on above: Performed By: #### L 100.0100, L500.4050 ####[facility] [address] [place], [address] Platelets (Bld) [#/Vol] 385 10*3/uL Normal 150-450 [facility] Comment on above: Performed By: #### L 100.0100, L500.4050 ####[facility] [address] [place], [address] RBC (Bld) [#/Vol] 3.41 10*6/uL Low 4.2-5.4 [facility] Comment on above: Performed By: #### L 100.0100, L500.4050 ####[facility] [address] [place], [address] RDW SD 60.9 fl High 35.1-43.9 [facility] Comment on above: Performed By: #### L 100.0100, L500.4050 ####[facility] [address] [place], [address] WBC (Bld) [#/Vol] 10.1 10*3/uL Normal 4.4-11.0 [facility] Comment on above: Performed By: #### L 100.0100, L500.4050 ####[facility] [address] [place], [address] Absolute Neut Normal 2.0-7.7 [facility] Comment on above: Result Comment: Canc elled via OM: Progression Performed By: #### L 500.4050, L100.0100 ####[facility] [address] [place], [address] HCT Normal 37-47 [facility] Comment on above: Result Comment: Canc elled via OM: Progression Performed By: #### L 500.4050, L100.0100 ####[facility] [address] [place], [address] HGB Normal 12.0-15.0 [facility] Comment on above: Result Comment: Canc elled via OM: Progression Performed By: #### L 500.4050, L100.0100 ####[facility] [address] [place], [address] MCH Normal 27.0-32.0 [facility] Comment on above: Result Comment: Canc elled via OM: Progression Performed By: #### L 500.4050, L100.0100 ####[facility] [address] [place], [address] MCHC Normal 32-36 [facility] Comment on above: Result Comment: Canc elled via OM: Progression Performed By: #### L 500.4050, L100.0100 ####[facility] [address] [place], [address] MCV Normal 81-99 [facility] Comment on above: Result Comment: Canc elled via OM: Progression Performed By: #### L 500.4050, L100.0100 ####[facility] [address] [place], [address] NEUT% Normal 47-70 [facility] Comment on above: Result Comment: Canc elled via OM: Progression Performed By: #### L 500.4050, L100.0100 ####[facility] [address] [place], [address] PLT Normal 150-450 [facility] Comment on above: Result Comment: Canc elled via OM: Progression Performed By: #### L 500.4050, L100.0100 ####[facility] [address] [place], [address] RBC Normal 4.2-5.4 [facility] Comment on above: Result Comment: Canc elled via OM: Progression Performed By: #### L 500.4050, L100.0100 ####[facility] [address] [place], [address] RDW CV Normal 11.6-14.6 [facility] Comment on above: Result Comment: Canc elled via OM: Progression Performed By: #### L 500.4050, L100.0100 ####[facility] [address] [place], [address] RDW SD Normal 35.1-43.9 [facility] Comment on above: Result Comment: Canc elled via OM: Progression Performed By: #### L 500.4050, L100.0100 ####[facility] [address] [place], [address] WBC Normal 4.4-11.0 [facility] Comment on above: Result Comment: Canc elled via OM: Progression Performed By: #### L 500.4050, L100.0100 ####[facility] [address] [place], [address] Comprehensive Metabolic Prof ilon 06-02-2024 Albumin [Mass/Vol] 3.5 g/dL Normal 3.2-5.0 [facility] Comment on above: Performed By: #### L 100.0100, L500.4050 ####[facility] [address] [place], [address] Albumin/Globulin [Mass ratio] 0.9 {ratio} Normal 0.9-2.4 [facility] Comment on above: Performed By: #### L 100.0100, L500.4050 ####[facility] [address] [place], [address] ALK P 66 U/L Normal 45-117 [facility] Comment on above: Performed By: #### L 100.0100, L500.4050 ####[facility] [address] [place], [address] ALT [Catalytic activity/Vol] 19 U/L Normal 13-56 [facility] Comment on above: Performed By: #### L 100.0100, L500.4050 ####[facility] [address] [place], [address] AST [Catalytic activity/Vol] 11 U/L Low 15-37 [facility] Comment on above: Performed By: #### L 100.0100, L500.4050 ####[facility] [address] [place], [address] Bilirubin [Mass/Vol] 0.40 mg/dL Normal 0.20-1.00 [facility] Comment on above: Result Comment: For patients on eltrombopag therapy, use of Dimension [employer] [facility] TBIL is not recommended. Performed By: #### L 100.0100, L500.4050 ####[facility] [address] [place], [address] BUN/CRE 15.2 RATIO Normal 10-20 [facility] Comment on above: Performed By: #### L 100.0100, L500.4050 ####[facility] [address] [place], [address] CA,Total 9.7 mg/dL Normal 8.5-10.1 [facility] Comment on above: Performed By: #### L 100.0100, L500.4050 ####[facility] [address] [place], [address] Chloride [Moles/Vol] 107 mmol/L Normal 98-107 [facility] Comment on above: Performed By: #### L 100.0100, L500.4050 ####[facility] [address] [place], [address] CO2 [Moles/Vol] 21.0 mmol/L Normal 21.0-32.0 [facility] Comment on above: Performed By: #### L 100.0100, L500.4050 ####[facility] [address] [place], [address] Creatinine [Mass/Vol] 0.79 mg/dL Normal 0.55-1.02 [facility] Comment on above: Result Comment: The validity of the calculated GFR GFRAA in patients over70 years has not been determined. Clinical correlation isessential. Performed By: #### L 100.0100, L500.4050 ####[facility] [address] [place], [address] ECRCL 66.56 ml/min Normal [facility] Comment on above: Performed By: #### L 100.0100, L500.4050 ####[facility] [address] [place], [address] EST GFR - AA 93 mL/min Normal >60 [facility] Comment on above: Result Comment: Afri can Nigerian GFR Calc Performed By: #### L 100.0100, L500.4050 ####[facility] [address] [place], [address] GAP 10 Normal 5-15 [facility] Comment on above: Performed By: #### L 100.0100, L500.4050 ####[facility] [address] [place], [address] GFR/1.73 sq M.predicted among non-blacks MDRD (S/P/Bld) [Vol rate/Area] 77 mL/min/{1.73_m2} Normal >60 [facility] Comment on above: Result Comment: Non- GFR Calc Performed By: #### L 100.0100, L500.4050 ####[facility] [address] [place], [address] Globulin (S) [Mass/Vol] 3.7 g/dL Normal 2.2-4.2 [facility] Comment on above: Performed By: #### L 100.0100, L500.4050 ####[facility] [address] [place], [address] Glucose [Mass/Vol] 164 mg/dL High 74-106 [facility] Comment on above: Result Comment: Fast ing Glucose result greater than or equal to 126 mg/dLsuggests DIABETES MELLITUS per A.D.A. criteria. Performed By: #### L 100.0100, L500.4050 ####[facility] [address] [place], [address] Potassium [Moles/Vol] 4.1 mmol/L Normal 3.5-5.1 [facility] Comment on above: Performed By: #### L 100.0100, L500.4050 ####[facility] [address] [place], [address] Sodium [Moles/Vol] 139 mmol/L Normal 136-145 [facility] Comment on above: Performed By: #### L 100.0100, L500.4050 ####[facility] [address] [place], [address] T PROT 7.2 g/dL Normal 6.4-8.2 [facility] Comment on above: Performed By: #### L 100.0100, L500.4050 ####[facility] [address] [place], [address] Urea nitrogen [Mass/Vol] 12 mg/dL Normal 7-18 [facility] Comment on above: Performed By: #### L 100.0100, L500.4050 ####[facility] [address] [place], [address] ALB Normal 3.2-5.0 [facility] Comment on above: Result Comment: Canc elled via OM: Progression Performed By: #### L 500.4050, L100.0100 ####[facility] [address] [place], [address] ALK P Normal 45-117 [facility] Comment on above: Result Comment: Canc elled via OM: Progression Performed By: #### L 500.4050, L100.0100 ####[facility] [address] [place], [address] ALT Normal 13-56 [facility] Comment on above: Result Comment: Canc elled via OM: Progression Performed By: #### L 500.4050, L100.0100 ####[facility] [address] [place], [address] AST Normal 15-37 [facility] Comment on above: Result Comment: Canc elled via OM: Progression Performed By: #### L 500.4050, L100.0100 ####[facility] [address] [place], [address] BUN Normal 7-18 [facility] Comment on above: Result Comment: Canc elled via OM: Progression Performed By: #### L 500.4050, L100.0100 ####[facility] [address] [place], [address] BUN/CRE Normal 10-20 [facility] Comment on above: Result Comment: Canc elled via OM: Progression Performed By: #### L 500.4050, L100.0100 ####[facility] [address] [place], [address] CA,Total Normal 8.5-10.1 [facility] Comment on above: Result Comment: Canc elled via OM: Progression Performed By: #### L 500.4050, L100.0100 ####[facility] [address] [place], [address] CL Normal 98-107 [facility] Comment on above: Result Comment: Canc elled via OM: Progression Performed By: #### L 500.4050, L100.0100 ####[facility] [address] [place], [address] CO2 Normal 21.0-32.0 [facility] Comment on above: Result Comment: Canc elled via OM: Progression Performed By: #### L 500.4050, L100.0100 ####[facility] [address] [place], [address] CREAT,SERUM Normal 0.55-1.02 [facility] Comment on above: Result Comment: Canc elled via OM: Progression Performed By: #### L 500.4050, L100.0100 ####[facility] [address] [place], [address] EST GFR Normal >60 [facility] Comment on above: Result Comment: Canc elled via OM: Progression Performed By: #### L 500.4050, L100.0100 ####[facility] [address] [place], [address] EST GFR - AA Normal >60 [facility] Comment on above: Result Comment: Canc elled via OM: Progression Performed By: #### L 500.4050, L100.0100 ####[facility] [address] [place], [address] GAP Normal 5-15 [facility] Comment on above: Result Comment: Canc elled via OM: Progression Performed By: #### L 500.4050, L100.0100 ####[facility] [address] [place], [address] GLU Normal 74-106 [facility] Comment on above: Result Comment: Canc elled via OM: Progression Performed By: #### L 500.4050, L100.0100 ####[facility] [address] [place], [address] Potassium Normal 3.5-5.1 [facility] Comment on above: Result Comment: Canc elled via OM: Progression Performed By: #### L 500.4050, L100.0100 ####[facility] [address] [place], [address] T BILI Normal 0.20-1.00 [facility] Comment on above: Result Comment: Canc elled via OM: Progression Performed By: #### L 500.4050, L100.0100 ####[facility] [address] [place], [address] T PROT Normal 6.4-8.2 [facility] Comment on above: Result Comment: Canc elled via OM: Progression Performed By: #### L 500.4050, L100.0100 ####[facility] [address] [place], [address] Comprehensive Metabolic Profil Normal 136-145 [facility] Comment on above: Result Comment: Canc elled via OM: Progression Performed By: #### L 500.4050, L100.0100 ####[facility] [address] [place], [address] Oncology Visit Reporton 05-18 Oncology Visit Report Normal [facility] CT Chest AND Abd W/ Contrast on 05-28-2024 CT Chest AND Abd W/ Contrast Normal [facility] Bedside Glucoseon 05-26-2024 FINGER[facility]ICK GLU 152 mg/dL High 74-106 [facility] Comment on above: Result Comment: MAX JOHNSON OF PATIENT CARE PER NURSING PROTOCOL Performed By: #### L 501.080 ####[facility] [address] [place], [place], [address] Colonoscopy Reporton 024 Colonoscopy Report Normal [facility] MR/POSTOP.ANEon 05-26-2024 MR/POSTOP.ANE Normal [facility] MR/BCTEDHVK8tj 05-26-2024 MR/POSTOPAN2 Normal [facility] CBC W/Diff, Automatedon PATH REV Reviewed Normal [facility] Comment on above: Result Comment: Leuk openia and neutropenia.Normocytic anemia.Clinical correlation necessary.Gamal Murillo M.D. 05/24/24 AMENDED REPORT 05/24/24 1352 PATH REV previously reported as: December gianluca Performed By: #### L 100.0100, L500.4050, L3300.0960, L501.9985, L500.4100 ####[facility] [address] [place], [place], [address] Vitamin D 1,25-Dihydroxyon 1 VIT D 1,25 DIHY 84.5 pg/mL Abnormal 24.8-81.5 [facility] Comment on above: Result Comment: Perf ormed at: BN - [facility] [address] [id number] Director: Audelia Orellana MD, Phone: [phone] Performed By: #### L 100.0100, L500.4050, L3300.0960, L501.9985, L500.4100 ####[facility] [address] [place], [address] Comprehensive Metabolic Prof ilon 05-20-2024 Albumin [Mass/Vol] 3.1 g/dL Low 3.2-5.0 [facility] Comment on above: Performed By: #### L 100.0100, L500.4050, L3300.0960, L501.9985, L500.4100 ####[facility] [address] [place], [address] Albumin/Globulin [Mass ratio] 0.8 {ratio} Low 0.9-2.4 [facility] Comment on above: Performed By: #### L 100.0100, L500.4050, L3300.0960, L501.9985, L500.4100 ####[facility] [address] [place], [address] ALK P 87 U/L Normal 45-117 [facility] Comment on above: Performed By: #### L 100.0100, L500.4050, L3300.0960, L501.9985, L500.4100 ####[facility] [address] [place], [address] ALT [Catalytic activity/Vol] 29 U/L Normal 13-56 [facility] Comment on above: Performed By: #### L 100.0100, L500.4050, L3300.0960, L501.9985, L500.4100 ####[facility] [address] [place], [address] AST [Catalytic activity/Vol] 30 U/L Normal 15-37 [facility] Comment on above: Performed By: #### L 100.0100, L500.4050, L3300.0960, L501.9985, L500.4100 ####[facility] [address] [place], [address] Bilirubin [Mass/Vol] 0.60 mg/dL Normal 0.20-1.00 [facility] Comment on above: Result Comment: For patients on eltrombopag therapy, use of Dimension [employer] [facility] TBIL is not recommended. Performed By: #### L 100.0100, L500.4050, L3300.0960, L501.9985, L500.4100 ####[facility] [address] [place], [address] BUN/CRE 10.1 RATIO Normal 10-20 [facility] Comment on above: Performed By: #### L 100.0100, L500.4050, L3300.0960, L501.9985, L500.4100 ####[facility] [address] [place], [address] CA,Total 8.8 mg/dL Normal 8.5-10.1 [facility] Comment on above: Performed By: #### L 100.0100, L500.4050, L3300.0960, L501.9985, L500.4100 ####[facility] [address] [place], [address] Chloride [Moles/Vol] 104 mmol/L Normal 98-107 [facility] Comment on above: Performed By: #### L 100.0100, L500.4050, L3300.0960, L501.9985, L500.4100 ####[facility] [address] [place], [address] CO2 [Moles/Vol] 24.0 mmol/L Normal 21.0-32.0 [facility] Comment on above: Performed By: #### L 100.0100, L500.4050, L3300.0960, L501.9985, L500.4100 ####[facility] [address] [place], [address] Creatinine [Mass/Vol] 0.79 mg/dL Normal 0.55-1.02 [facility] Comment on above: Result Comment: The validity of the calculated GFR GFRAA in patients over70 years has not been determined. Clinical correlation isessential. Performed By: #### L 100.0100, L500.4050, L3300.0960, L501.9985, L500.4100 ####[facility] [address] [place], [address] EST GFR - AA 93 mL/min Normal >60 [facility] Comment on above: Result Comment: Afri can Nigerian GFR Calc Performed By: #### L 100.0100, L500.4050, L3300.0960, L501.9985, L500.4100 ####[facility] [address] [place], [address] GAP 10 Normal 5-15 [facility] Comment on above: Performed By: #### L 100.0100, L500.4050, L3300.0960, L501.9985, L500.4100 ####[facility] [address] [place], [address] GFR/1.73 sq M.predicted among non-blacks MDRD (S/P/Bld) [Vol rate/Area] 77 mL/min/{1.73_m2} Normal >60 [facility] Comment on above: Result Comment: Non- GFR Calc Performed By: #### L 100.0100, L500.4050, L3300.0960, L501.9985, L500.4100 ####[facility] [address] [place], [address] Globulin (S) [Mass/Vol] 3.9 g/dL Normal 2.2-4.2 [facility] Comment on above: Performed By: #### L 100.0100, L500.4050, L3300.0960, L501.9985, L500.4100 ####[facility] [address] [place], [address] Glucose [Mass/Vol] 205 mg/dL High 74-106 [facility] Comment on above: Result Comment: Gluc ose result greater than or equal to 200 mg/dLsuggests DIABETES MELLITUS per A.D.A. criteria. Performed By: #### L 100.0100, L500.4050, L3300.0960, L501.9985, L500.4100 ####[facility] [address] [place], [address] Potassium [Moles/Vol] 3.6 mmol/L Normal 3.5-5.1 [facility] Comment on above: Performed By: #### L 100.0100, L500.4050, L3300.0960, L501.9985, L500.4100 ####[facility] [address] [place], [address] Sodium [Moles/Vol] 138 mmol/L Normal 136-145 [facility] Comment on above: Performed By: #### L 100.0100, L500.4050, L3300.0960, L501.9985, L500.4100 ####[facility] [address] [place], [address] T PROT 7.0 g/dL Normal 6.4-8.2 [facility] Comment on above: Performed By: #### L 100.0100, L500.4050, L3300.0960, L501.9985, L500.4100 ####[facility] [address] [place], [address] Urea nitrogen [Mass/Vol] 8 mg/dL Normal 7-18 [facility] Comment on above: Performed By: #### L 100.0100, L500.4050, L3300.0960, L501.9985, L500.4100 ####[facility] [address] [place], [address] Hemoglobin A1con 05-20-2024 HbA1c (Bld) [Mass fraction] 7.9 % High 3.8-5.6 [facility] Comment on above: Result Comment: Norm al < 5.7 % Prediabetic 5.7 - 6.4 % Diabetic >or= 6.5 % Please note range changes. Performed By: #### L 100.0100, L500.4050, L3300.0960, L501.9985, L500.4100 ####[facility] [address] [place], [address] Lipid Profileon 05-20-2024 Cholesterol [Mass/Vol] 87 mg/dL Normal 200 [facility] Comment on above: Result Comment: <200 mg/dL Desirable 200-240 mg/dL Borderline >240 mg/dL High Risk Performed By: #### L 100.0100, L500.4050, L3300.0960, L501.9985, L500.4100 ####[facility] [address] [place], [address] Cholesterol in HDL [Mass/Vol] 43 mg/dL Normal [facility] Comment on above: Result Comment: The drugs N-Acetylcysteine and Metamizole may falselydepress this assay. Reference Range HDL <40 mg/dL Low HDL Cholesterol HDL >or= 60 mg/dL High HDL Cholesterol Performed By: #### L 100.0100, L500.4050, L3300.0960, L501.9985, L500.4100 ####[facility] [address] [place], [address] Cholesterol in LDL [Mass/Vol] 15 mg/dL Normal 0-130 [facility] Comment on above: Performed By: #### L 100.0100, L500.4050, L3300.0960, L501.9985, L500.4100 ####[facility] [address] [place], [address] Cholesterol in VLDL [Mass/Vol] 29 mg/dL Normal 5-40 [facility] Comment on above: Performed By: #### L 100.0100, L500.4050, L3300.0960, L501.9985, L500.4100 ####[facility] [address] [place], [address] Triglyceride [Mass/Vol] 147 mg/dL Normal [facility] Comment on above: Result Comment: The drugs N-Acetylcysteine and Metamizole may falselydepress this assay.Serum Triglycerides Reference Interval Normal <150 mg/dL Borderline high 150 - 199 mg/dL High 200 - 499 mg/dL Very High > or = 500 mg/dL Performed By: #### L 100.0100, L500.4050, L3300.0960, L501.9985, L500.4100 ####[facility] [address] [place], [address] CBC W/Diff, Automatedon 04-19 Absolute Lymph 0.53 X10 3/uL Low 0.83-4.51 [facility] Comment on above: Performed By: #### L 500.4050, L100.0100 ####[facility] [address] [place], [address] Absolute Neut 6.8 X10 3/uL Normal 2.0-7.7 [facility] Comment on above: Performed By: #### L 500.4050, L100.0100 ####[facility] [address] [place], [address] Basophils/100 WBC (Bld) 0.2 % Normal 0-1 [facility] Comment on above: Performed By: #### L 500.4050, L100.0100 ####[facility] [address] [place], [address] Eosinophils/100 WBC (Bld) 0.0 % Normal 0-5 [facility] Comment on above: Performed By: #### L 500.4050, L100.0100 ####[facility] [address] [place], [address] Erythrocyte distribution width (RBC) [Ratio] 18.8 % High 11.6-14.6 [facility] Comment on above: Performed By: #### L 500.4050, L100.0100 ####[facility] [address] [place], [address] Hematocrit (Bld) [Volume fraction] 33.4 % Low 37-47 [facility] Comment on above: Performed By: #### L 500.4050, L100.0100 ####[facility] [address] [place], [address] Hemoglobin (Bld) [Mass/Vol] 10.4 g/dL Low 12.0-15.0 [facility] Comment on above: Performed By: #### L 500.4050, L100.0100 ####[facility] [address] [place], [address] IG% 0.900 Normal 0.0-0.9 [facility] Comment on above: Result Comment: IG% - Immature Granulocytes (promyelocytes, myelocytes andmetamyelocytes) > 1% indicates that a LEFT SHIFT is Present. Performed By: #### L 500.4050, L100.0100 ####[facility] [address] [place], [address] Lymphocytes/100 WBC (Bld) 6.5 % Low 19-41 [facility] Comment on above: Performed By: #### L 500.4050, L100.0100 ####[facility] [address] [place], [address] MCH (RBC) [Entitic mass] 29.5 pg Normal 27.0-32.0 [facility] Comment on above: Performed By: #### L 500.4050, L100.0100 ####[facility] [address] [place], [address] MCHC (RBC) [Mass/Vol] 31.1 g/dL Low 32-36 [facility] Comment on above: Performed By: #### L 500.4050, L100.0100 ####[facility] [address] [place], [address] MCV (RBC) [Entitic vol] 94.6 fL Normal 81-99 [facility] Comment on above: Performed By: #### L 500.4050, L100.0100 ####[facility] [address] [place], [address] Monocytes/100 WBC (Bld) 8.5 % Normal 0-10 [facility] Comment on above: Performed By: #### L 500.4050, L100.0100 ####[facility] [address] [place], [address] Neutrophils/100 WBC (Bld) 83.9 % High 47-70 [facility] Comment on above: Performed By: #### L 500.4050, L100.0100 ####[facility] [address] [place], [address] Nucleated RBC (Bld) [#/Vol] 0 10*3/uL Normal 0-5 [facility] Comment on above: Performed By: #### L 500.4050, L100.0100 ####[facility] [address] [place], [address] Platelet mean volume (Bld) [Entitic vol] 8.7 fL Normal 6.2-12.0 [facility] Comment on above: Performed By: #### L 500.4050, L100.0100 ####[facility] [address] [place], [address] Platelets (Bld) [#/Vol] 414 10*3/uL Normal 150-450 [facility] Comment on above: Performed By: #### L 500.4050, L100.0100 ####[facility] [address] [place], [address] RBC (Bld) [#/Vol] 3.53 10*6/uL Low 4.2-5.4 [facility] Comment on above: Performed By: #### L 500.4050, L100.0100 ####[facility] [address] [place], [address] RDW SD 64.8 fl High 35.1-43.9 [facility] Comment on above: Performed By: #### L 500.4050, L100.0100 ####[facility] [address] [place], [address] WBC (Bld) [#/Vol] 8.1 10*3/uL Normal 4.4-11.0 [facility] Comment on above: Performed By: #### L 500.4050, L100.0100 ####[facility] [address] [place], [address] [facility] 05-12-2024 Albumin [Mass/Vol] 3.3 g/dL Normal 3.2-5.0 [facility] Comment on above: Performed By: #### L 500.4050, L100.0100 ####[facility] [address] [place], [address] Albumin/Globulin [Mass ratio] 0.8 {ratio} Low 0.9-2.4 [facility] Comment on above: Performed By: #### L 500.4050, L100.0100 ####[facility] [address] [place], [address] ALK P 74 U/L Normal 45-117 [facility] Comment on above: Performed By: #### L 500.4050, L100.0100 ####[facility] [address] [place], [address] ALT [Catalytic activity/Vol] 24 U/L Normal 13-56 [facility] Comment on above: Performed By: #### L 500.4050, L100.0100 ####[facility] [address] [place], [address] AST [Catalytic activity/Vol] 16 U/L Normal 15-37 [facility] Comment on above: Performed By: #### L 500.4050, L100.0100 ####[facility] [address] [place], [address] Bilirubin [Mass/Vol] 0.30 mg/dL Normal 0.20-1.00 [facility] Comment on above: Result Comment: For patients on eltrombopag therapy, use of Dimension [employer] [facility] TBIL is not recommended. Performed By: #### L 500.4050, L100.0100 ####[facility] [address] [place], [address] BUN/CRE 13.1 RATIO Normal 10-20 [facility] Comment on above: Performed By: #### L 500.4050, L100.0100 ####[facility] [address] [place], [address] CA,Total 9.4 mg/dL Normal 8.5-10.1 [facility] Comment on above: Performed By: #### L 500.4050, L100.0100 ####[facility] [address] [place], [address] Chloride [Moles/Vol] 106 mmol/L Normal 98-107 [facility] Comment on above: Performed By: #### L 500.4050, L100.0100 ####[facility] [address] [place], [address] CO2 [Moles/Vol] 19.0 mmol/L Low 21.0-32.0 [facility] Comment on above: Performed By: #### L 500.4050, L100.0100 ####[facility] [address] [place], [address] Creatinine [Mass/Vol] 0.92 mg/dL Normal 0.55-1.02 [facility] Comment on above: Result Comment: The validity of the calculated GFR GFRAA in patients over70 years has not been determined. Clinical correlation isessential. Performed By: #### L 500.4050, L100.0100 ####[facility] [address] [place], [address] ECRCL 57.51 ml/min Normal [facility] Comment on above: Performed By: #### L 500.4050, L100.0100 ####[facility] [address] [place], [address] EST GFR - AA 78 mL/min Normal >60 [facility] Comment on above: Result Comment: Afri can Nigerian GFR Calc Performed By: #### L 500.4050, L100.0100 ####[facility] [address] [place], [address] GAP 12 Normal 5-15 [facility] Comment on above: Performed By: #### L 500.4050, L100.0100 ####[facility] [address] [place], [address] GFR/1.73 sq M.predicted among non-blacks MDRD (S/P/Bld) [Vol rate/Area] 65 mL/min/{1.73_m2} Normal >60 [facility] Comment on above: Result Comment: Non- GFR Calc Performed By: #### L 500.4050, L100.0100 ####[facility] [address] [place], [address] Globulin (S) [Mass/Vol] 4.1 g/dL Normal 2.2-4.2 [facility] Comment on above: Performed By: #### L 500.4050, L100.0100 ####[facility] [address] [place], [address] Glucose [Mass/Vol] 212 mg/dL High 74-106 [facility] Comment on above: Result Comment: Gluc ose result greater than or equal to 200 mg/dLsuggests DIABETES MELLITUS per A.D.A. criteria. Performed By: #### L 500.4050, L100.0100 ####[facility] [address] [place], [address] Potassium [Moles/Vol] 4.2 mmol/L Normal 3.5-5.1 [facility] Comment on above: Performed By: #### L 500.4050, L100.0100 ####[facility] [address] [place], [address] Sodium [Moles/Vol] 137 mmol/L Normal 136-145 [facility] Comment on above: Performed By: #### L 500.4050, L100.0100 ####[facility] [address] [place], [address] T PROT 7.4 g/dL Normal 6.4-8.2 [facility] Comment on above: Performed By: #### L 500.4050, L100.0100 ####[facility] [address] [place], [address] Urea nitrogen [Mass/Vol] 12 mg/dL Normal 7-18 [facility] Comment on above: Performed By: #### L 500.4050, L100.0100 ####[facility] [address] [place], [address] Oncology Visit Reporton 04-19 Oncology Visit Report Normal [facility] Dexa Bone Density Studyon Dexa Bone Density Study Normal [facility] SCRN MAMM (CAD)W/IRENE BILATo n 04-23-2024 SCRN MAMM (CAD)W/IRENE BILAT Normal [facility] Surgery Visit Reporton 04-22 Surgery Visit Report Normal [facility] CBC W/Diff, Automatedon 09-0 Absolute Lymph 0.60 X10 3/uL Low 0.83-4.51 [facility] Comment on above: Performed By: #### L 100.0100, L500.4050 ####[facility] [address] [place], [address] Absolute Neut 8.6 X10 3/uL High 2.0-7.7 [facility] Comment on above: Performed By: #### L 100.0100, L500.4050 ####[facility] [address] [place], [address] Basophils/100 WBC (Bld) 0.2 % Normal 0-1 [facility] Comment on above: Performed By: #### L 100.0100, L500.4050 ####[facility] [address] [place], [address] Eosinophils/100 WBC (Bld) 0.0 % Normal 0-5 [facility] Comment on above: Performed By: #### L 100.0100, L500.4050 ####[facility] [address] [place], [address] Erythrocyte distribution width (RBC) [Ratio] 17.8 % High 11.6-14.6 [facility] Comment on above: Performed By: #### L 100.0100, L500.4050 ####[facility] [address] [place], [address] Hematocrit (Bld) [Volume fraction] 34.0 % Low 37-47 [facility] Comment on above: Performed By: #### L 100.0100, L500.4050 ####[facility] [address] [place], [address] Hemoglobin (Bld) [Mass/Vol] 10.7 g/dL Low 12.0-15.0 [facility] Comment on above: Performed By: #### L 100.0100, L500.4050 ####[facility] [address] [place], [address] IG% 1.100 High 0.0-0.9 [facility] Comment on above: Result Comment: IG% - Immature Granulocytes (promyelocytes, myelocytes andmetamyelocytes) > 1% indicates that a LEFT SHIFT is Present. Performed By: #### L 100.0100, L500.4050 ####[facility] [address] [place], [address] Lymphocytes/100 WBC (Bld) 6.1 % Low 19-41 [facility] Comment on above: Performed By: #### L 100.0100, L500.4050 ####[facility] [address] [place], [address] MCH (RBC) [Entitic mass] 29.3 pg Normal 27.0-32.0 [facility] Comment on above: Performed By: #### L 100.0100, L500.4050 ####[facility] [address] [place], [address] MCHC (RBC) [Mass/Vol] 31.5 g/dL Low 32-36 [facility] Comment on above: Performed By: #### L 100.0100, L500.4050 ####[facility] [address] [place], [address] MCV (RBC) [Entitic vol] 93.2 fL Normal 81-99 [facility] Comment on above: Performed By: #### L 100.0100, L500.4050 ####[facility] [address] [place], [address] Monocytes/100 WBC (Bld) 5.3 % Normal 0-10 [facility] Comment on above: Performed By: #### L 100.0100, L500.4050 ####[facility] [address] [place], [address] Neutrophils/100 WBC (Bld) 87.3 % High 47-70 [facility] Comment on above: Performed By: #### L 100.0100, L500.4050 ####[facility] [address] [place], [address] Nucleated RBC (Bld) [#/Vol] 0 10*3/uL Normal 0-5 [facility] Comment on above: Performed By: #### L 100.0100, L500.4050 ####[facility] [address] [place], [address] Platelet mean volume (Bld) [Entitic vol] 8.9 fL Normal 6.2-12.0 [facility] Comment on above: Performed By: #### L 100.0100, L500.4050 ####[facility] [address] [place], [address] Platelets (Bld) [#/Vol] 436 10*3/uL Normal 150-450 [facility] Comment on above: Performed By: #### L 100.0100, L500.4050 ####[facility] [address] [place], [address] RBC (Bld) [#/Vol] 3.65 10*6/uL Low 4.2-5.4 [facility] Comment on above: Performed By: #### L 100.0100, L500.4050 ####[facility] [address] [place], [address] RDW SD 59.9 fl High 35.1-43.9 [facility] Comment on above: Performed By: #### L 100.0100, L500.4050 ####[facility] [address] [place], [address] WBC (Bld) [#/Vol] 9.9 10*3/uL Normal 4.4-11.0 [facility] Comment on above: Performed By: #### L 100.0100, L500.4050 ####[facility] [address] [place], [address] Comprehensive Metabolic Prof ilon 04-21-2024 Albumin [Mass/Vol] 3.3 g/dL Normal 3.2-5.0 [facility] Comment on above: Performed By: #### L 100.0100, L500.4050 ####[facility] [address] [place], [address] Albumin/Globulin [Mass ratio] 0.8 {ratio} Low 0.9-2.4 [facility] Comment on above: Performed By: #### L 100.0100, L500.4050 ####[facility] [address] [place], [address] ALK P 80 U/L Normal 45-117 [facility] Comment on above: Performed By: #### L 100.0100, L500.4050 ####[facility] [address] [place], [address] ALT [Catalytic activity/Vol] 34 U/L Normal 13-56 [facility] Comment on above: Performed By: #### L 100.0100, L500.4050 ####[facility] [address] [place], [address] AST [Catalytic activity/Vol] 13 U/L Low 15-37 [facility] Comment on above: Performed By: #### L 100.0100, L500.4050 ####[facility] [address] [place], [address] Bilirubin [Mass/Vol] 0.30 mg/dL Normal 0.20-1.00 [facility] Comment on above: Result Comment: For patients on eltrombopag therapy, use of Dimension [employer] TBIL is not recommended. Performed By: #### L 100.0100, L500.4050 ####[facility] [address] [place], [address] BUN/CRE 12.3 RATIO Normal 10-20 [facility] Comment on above: Performed By: #### L 100.0100, L500.4050 ####[facility] [address] [place], [address] CA,Total 10.1 mg/dL Normal 8.5-10.1 [facility] Comment on above: Performed By: #### L 100.0100, L500.4050 ####[facility] [address] [place], [address] Chloride [Moles/Vol] 106 mmol/L Normal 98-107 [facility] Comment on above: Performed By: #### L 100.0100, L500.4050 ####[facility] [address] [place], [address] CO2 [Moles/Vol] 18.0 mmol/L Low 21.0-32.0 [facility] Comment on above: Performed By: #### L 100.0100, L500.4050 ####[facility] [address] [place], [address] Creatinine [Mass/Vol] 0.90 mg/dL Normal 0.55-1.02 [facility] Comment on above: Result Comment: The validity of the calculated GFR GFRAA in patients over70 years has not been determined. Clinical correlation isessential. Performed By: #### L 100.0100, L500.4050 ####[facility] [address] [place], [address] ECRCL 58.96 ml/min Normal [facility] Comment on above: Performed By: #### L 100.0100, L500.4050 ####[facility] [address] [place], [address] EST GFR - AA 80 mL/min Normal >60 [facility] Comment on above: Result Comment: Afri can Nigerian GFR Calc Performed By: #### L 100.0100, L500.4050 ####[facility] [address] [place], [address] GAP 12 Normal 5-15 [facility] Comment on above: Performed By: #### L 100.0100, L500.4050 ####[facility] [address] [place], [address] GFR/1.73 sq M.predicted among non-blacks MDRD (S/P/Bld) [Vol rate/Area] 66 mL/min/{1.73_m2} Normal >60 [facility] Comment on above: Result Comment: Non- GFR Calc Performed By: #### L 100.0100, L500.4050 ####[facility] [address] [place], [address] Globulin (S) [Mass/Vol] 4.1 g/dL Normal 2.2-4.2 [facility] Comment on above: Performed By: #### L 100.0100, L500.4050 ####[facility] [address] [place], [address] Glucose [Mass/Vol] 248 mg/dL High 74-106 [facility] Comment on above: Result Comment: Gluc ose result greater than or equal to 200 mg/dLsuggests DIABETES MELLITUS per A.D.A. criteria. Performed By: #### L 100.0100, L500.4050 ####[facility] [address] [place], [address] Potassium [Moles/Vol] 4.4 mmol/L Normal 3.5-5.1 [facility] Comment on above: Performed By: #### L 100.0100, L500.4050 ####[facility] [address] [place], [address] Sodium [Moles/Vol] 136 mmol/L Normal 136-145 [facility] Comment on above: Performed By: #### L 100.0100, L500.4050 ####[facility] [address] [place], [address] T PROT 7.4 g/dL Normal 6.4-8.2 [facility] Comment on above: Performed By: #### L 100.0100, L500.4050 ####[facility] [address] [place], [address] Urea nitrogen [Mass/Vol] 11 mg/dL Normal 7-18 [facility] Comment on above: Performed By: #### L 100.0100, L500.4050 ####[facility] [address] [place], [address] Magnesiumon 04-21-2024 Magnesium [Mass/Vol] 1.7 mg/dL Normal 1.6-2.6 [facility] Comment on above: Performed By: #### L 501.2300, L501.5200 ####[facility] [address] [place], [address] Oncology Visit Reporton Oncology Visit Report Normal [facility] Phosphoruson 04-21-2024 Phosphate [Mass/Vol] 3.0 mg/dL Normal 2.5-4.9 [facility] Comment on above: Performed By: #### L 501.2300, L501.5200 ####[facility] [address] [place], [address] Absolute lymphocyte countOrd ered By: Shannan Waldrop on 12-02-2023 Lymphocytes Auto (Unsp spec) [#/Vol] 0.74 10*3/uL 0.83-4.51 [facility] Automated lymphocyte count a s percentage of total leukocytesOrdered By: Shannan Waldrop on 12-02-2023 Lymphocytes/100 WBC Auto (Unsp spec) 14.9 % 19-41 [facility] Basophil percentageOrdered B y: Shannan Waldrop on 12-02-2023 Basophils/100 WBC (Bld) 0.6 % 0-1 [facility] Bilirubin [Mass/Vol] 0.50 mg/dL 0.20-1.00 [facility] Comment on above: For patients on eltr ombopag therapy, use of [employer] TBIL is not recommended. Chloride [Moles/Vol] 106 mmol/L 98-107 [facility] Eosinophils/100 WBC (Bld) 2.8 % 0-5 [facility] Glucose [Mass/Vol] 131 mg/dL 74-106 [facility] Comment on above: Fasting Glucose resu lt greater than or equal to 126 mg/dL suggests DIABETES MELLITUS per A.D.A. criteria. Hemoglobin (Bld) [Mass/Vol] 10.2 g/dL 12.0-15.0 [facility] Monocytes/100 WBC (Bld) 9.9 % 0-10 [facility] Neutrophils (Bld) [#/Vol] 3.6 10*3/uL 2.0-7.7 [facility] Neutrophils/100 WBC (Bld) 71.4 % 47-70 [facility] Potassium [Moles/Vol] 4.3 mmol/L 3.5-5.1 [facility] Protein [Mass/Vol] 7.2 g/dL 6.4-8.2 [facility] Sodium [Moles/Vol] 137 mmol/L 136-145 [facility] WBC (Bld) [#/Vol] 5.0 10*3/uL 4.4-11.0 [facility] Determination of erythrocyte mean corpuscular volume (MCV)Ordered By: Shannan Waldrop on 12-02-2023 MCV (RBC) [Entitic vol] 99.1 fL 81-99 [facility] Erythrocyte distribution wid th ratioOrdered By: Shannan Waldrop on 12-02-2023 Erythrocyte distribution width (RBC) [Ratio] 16.8 % 11.6-14.6 [facility] Erythrocyte distribution wid th standard deviationOrdered By: Shannan Waldrop on 12-02-2023 Erythrocyte distribution width (RBC) [Entitic vol] 61.2 fL 35.1-43.9 [facility] Hematocrit Auto (Bld) [Volum e fraction]Ordered By: Shannan Waldrop on 12-02-2023 Hematocrit (Bld) [Volume fraction] 33.6 % 37-47 [facility] Immature granulocytes/100 WB C Auto (Bld)Ordered By: Shannan Waldrop on 12-02-2023 Immature granulocytes/100 WBC (Bld) 0.400 % 0.0-0.9 [facility] Comment on above: IG% - Immature Granu locytes (promyelocytes, myelocytes and metamyelocytes) > 1% indicates that a LEFT SHIFT is Present. Laboratory - Chemistry and C hemistry - challengeOrdered By: [facility] on 12-02-2023 Albumin/Globulin [Mass ratio] 0.9 {ratio} 0.9-2.4 [facility] ALP [Catalytic activity/Vol] 64 U/L 45-117 [facility] ALT [Catalytic activity/Vol] 14 U/L 13-56 [facility] CO2 [Moles/Vol] 25.0 mmol/L 21.0-32.0 [facility] Globulin (S) [Mass/Vol] 3.8 g/dL 2.2-4.2 [facility] Urea nitrogen/Creatinine [Mass ratio] 24.1 mg/mg 10-20 [facility] Laboratory - Hematology and Cell countsOrdered By: Shannan Waldrop on 12-02-2023 MCH (RBC) [Entitic mass] 30.1 pg 27.0-32.0 [facility] MCHC (RBC) [Mass/Vol] 30.4 g/dL 32-36 [facility] Nucleated RBC/100 WBC (Bld) [Ratio] 0 % 0-5 [facility] Platelet mean volume (Bld) [Entitic vol] 8.8 fL 6.2-12.0 [facility] Platelets (Bld) [#/Vol] 322 10*3/uL 150-450 [facility] No Panel InformationOrdered By: Shannan Waldrop on 12-02-2023 Estimated Creatinine Clearance Calc 68.25 ml/min [facility] Estimated GFR (MDRD) Amer 106 mL/min >60 [facility] Comment on above: GFR Calc Estimated GFR (MDRD) Non-Af Amer 87 mL/min >60 [facility] Comment on above: Non- GFR Calc RBC Auto (Bld) [#/Vol]Ordere d By: Shannan Waldrop on 12-02-2023 RBC (Bld) [#/Vol] 3.39 10*6/uL 4.2-5.4 [facility] Serum or plasma calcium joaquin urement (mass/volume)Ordered By: Shannan Waldrop on 12-02-2023 Calcium [Mass/Vol] 9.0 mg/dL 8.5-10.1 [facility] Serum or plasma creatinine m easurement (mass/volume)Ordered By: Shannan Waldrop on 12-02-2023 Creatinine [Mass/Vol] 0.71 mg/dL 0.55-1.02 [facility] Comment on above: The validity of the calculated GFR & GFRAA in patients over 70 years has not been determined. Clinical correlation is essential. Serum or plasma urea nitroge n measurement (mass/volume)Ordered By: Shannan Waldrop on 12-02-2023 Urea nitrogen [Mass/Vol] 17 mg/dL 7-18 [facility] Thin prep Papanicolaou smear with manual screeningOrdered By: Shannan Waldrop on 12-02-2023 Thin prep Papanicolaou smear with manual screening 3.4 g/dL 3.2-5.0 [facility] Thin prep Papanicolaou smear with manual screening 11 U/L 15-37 [facility] Thin prep Papanicolaou smear with manual screening 6 5-15 [facility] Absolute lymphocyte countOrd ered By: Sharif Christianson on 11-28-2023 Lymphocytes Auto (Unsp spec) [#/Vol] 0.78 10*3/uL 0.83-4.51 [facility] Automated lymphocyte count a s percentage of total leukocytesOrdered By: Sharif Christianson on 11-28-2023 Lymphocytes/100 WBC Auto (Unsp spec) 13.6 % 19-41 [facility] Basophil percentageOrdered B y: Sharif Christianson on 11-28-2023 Basophils/100 WBC (Bld) 0.7 % 0-1 [facility] Bilirubin [Mass/Vol] 0.30 mg/dL 0.20-1.00 [facility] Comment on above: For patients on eltr ombopag therapy, use of Dimension [employer] TBIL is not recommended. Chloride [Moles/Vol] 104 mmol/L 98-107 [facility] Eosinophils/100 WBC (Bld) 2.1 % 0-5 [facility] Glucose [Mass/Vol] 160 mg/dL 74-106 [facility] Comment on above: Fasting Glucose resu lt greater than or equal to 126 mg/dL suggests DIABETES MELLITUS per A.D.A. criteria. Hemoglobin (Bld) [Mass/Vol] 10.0 g/dL 12.0-15.0 [facility] Monocytes/100 WBC (Bld) 9.6 % 0-10 [facility] Neutrophils (Bld) [#/Vol] 4.2 10*3/uL 2.0-7.7 [facility] Neutrophils/100 WBC (Bld) 73.5 % 47-70 [facility] Potassium [Moles/Vol] 4.1 mmol/L 3.5-5.1 [facility] Protein [Mass/Vol] 7.4 g/dL 6.4-8.2 [facility] Sodium [Moles/Vol] 136 mmol/L 136-145 [facility] WBC (Bld) [#/Vol] 5.7 10*3/uL 4.4-11.0 [facility] Determination of erythrocyte mean corpuscular volume (MCV)Ordered By: Sharif Christianson on 11-28-2023 MCV (RBC) [Entitic vol] 100.9 fL 81-99 [facility] Erythrocyte distribution wid th ratioOrdered By: Sharif Christianson on 11-28-2023 Erythrocyte distribution width (RBC) [Ratio] 16.8 % 11.6-14.6 [facility] Erythrocyte distribution wid th standard deviationOrdered By: Sharif Christianson on 11-28-2023 Erythrocyte distribution width (RBC) [Entitic vol] 62.0 fL 35.1-43.9 [facility] Hematocrit Auto (Bld) [Volum e fraction]Ordered By: Sharif Christianson on 11-28-2023 Hematocrit (Bld) [Volume fraction] 33.6 % 37-47 [facility] Immature granulocytes/100 WB C Auto (Bld)Ordered By: Sharif Christianson on 11-28-2023 Immature granulocytes/100 WBC (Bld) 0.500 % 0.0-0.9 [facility] Comment on above: IG% - Immature Granu locytes (promyelocytes, myelocytes and metamyelocytes) > 1% indicates that a LEFT SHIFT is Present. Laboratory - Chemistry and C hemistry - challengeOrdered By: Sharif Christianson on 11-28-2023 Albumin/Globulin [Mass ratio] 0.8 {ratio} 0.9-2.4 [facility] ALP [Catalytic activity/Vol] 63 U/L 45-117 [facility] ALT [Catalytic activity/Vol] 20 U/L 13-56 [facility] CO2 [Moles/Vol] 26.0 mmol/L 21.0-32.0 [facility] Globulin (S) [Mass/Vol] 4.2 g/dL 2.2-4.2 [facility] Urea nitrogen/Creatinine [Mass ratio] 13.5 mg/mg 10-20 [facility] Laboratory - Hematology and Cell countsOrdered By: Sharif Christianson on 11-28-2023 MCH (RBC) [Entitic mass] 30.0 pg 27.0-32.0 [facility] MCHC (RBC) [Mass/Vol] 29.8 g/dL 32-36 [facility] Nucleated RBC/100 WBC (Bld) [Ratio] 0 % 0-5 [facility] Platelet mean volume (Bld) [Entitic vol] 9.8 fL 6.2-12.0 [facility] Platelets (Bld) [#/Vol] 322 10*3/uL 150-450 [facility] No Panel InformationOrdered By: Sharif Christianson on 11-28-2023 Estimated GFR (MDRD) Amer 81 mL/min >60 [facility] Comment on above: GFR Calc Estimated GFR (MDRD) Non-Af Amer 67 mL/min >60 [facility] Comment on above: Non- GFR Calc RBC Auto (Bld) [#/Vol]Ordere d By: Sharif Christianson on 11-28-2023 RBC (Bld) [#/Vol] 3.33 10*6/uL 4.2-5.4 [facility] Serum or plasma calcium joaquin urement (mass/volume)Ordered By: Sharif Christianson on 11-28-2023 Calcium [Mass/Vol] 9.3 mg/dL 8.5-10.1 [facility] Serum or plasma creatinine m easurement (mass/volume)Ordered By: Sharif Christianson on 11-28-2023 Creatinine [Mass/Vol] 0.89 mg/dL 0.55-1.02 [facility] Comment on above: The validity of the calculated GFR & GFRAA in patients over 70 years has not been determined. Clinical correlation is essential. Serum or plasma urea nitroge n measurement (mass/volume)Ordered By: Sharif Christianson on 11-28-2023 Urea nitrogen [Mass/Vol] 12 mg/dL 7-18 [facility] Thin prep Papanicolaou smear with manual screeningOrdered By: Sharif Christianson on 11-28-2023 Thin prep Papanicolaou smear with manual screening 3.2 g/dL 3.2-5.0 [facility] Thin prep Papanicolaou smear with manual screening 18 U/L 15-37 [facility] Thin prep Papanicolaou smear with manual screening 6 5-15 [facility] Laboratory - Chemistry and C hemistry - challengeOrdered By: Shannan Waldrop on 10-30-2023 Magnesium [Mass/Vol] 1.9 mg/dL 1.6-2.6 [facility] Basophil percentageOrdered B y: Shannan Waldrop on 10-06-2023 Basophil percentage 4.3 mg/dL 2.5-4.9 [facility] Laboratory - Chemistry and C hemistry - challengeOrdered By: Shannan Waldrop on 10-06-2023 Cobalamin (Vitamin B12) [Mass/Vol] 187 pg/mL 211-911 [facility] Laboratory - Hematology and Cell countsOrdered By: Shannan Waldrop on 10-06-2023 Anisocytosis Ql (Bld) 1+ [facility] Basophil percentageOrdered B y: Sharif Christianson on 09-25-2023 Basophil percentage >100 SEEN /hpf 0-5 [facility] Bilirubin Test strip Ql (U)O rdered By: Sharif Christianson on 09-25-2023 Bilirubin Ql (U) Negative Negative [facility] Ketones Test strip Ql (U)Ord ered By: Sharif Christianson on 09-25-2023 Ketones Ql (U) Negative Negative [facility] Mucus LM Ql (Urine sed)Order ed By: Sharif Christianson on 09-25-2023 Mucus Ql (Urine sed) 0 SEEN /hpf [facility] Nitrite Test strip Ql (U)Ord ered By: Sharif Christianson on 09-25-2023 Nitrite Ql (U) Positive Negative [facility] No Panel InformationOrdered By: Sharif Christianson on 09-25-2023 Urine Microalbumin/Creatinine Ratio 73.1 mg/g CRE <30 [facility] Urine RBC 0 SEEN /hpf 0-5 [facility] Protein Test strip Ql (U)Ord ered By: Sharif Christianson on 09-25-2023 Protein Ql (U) 30 mg/dl Negative [facility] Squamous epithelial cells de tection in urine sediment by light microscopyOrdered By: Sharif Christianson on 09-25-2023 Epithelial cells.squamous LM Ql (Urine sed) 0 SEEN /hpf 5-10 [facility] Thin prep Papanicolaou smear with manual screeningOrdered By: Sharif Christianson on 09-25-2023 Thin prep Papanicolaou smear with manual screening 128.0 mg/L NO RANGE EST. [facility] Urine blood detectionOrdered By: Sharif Christianson on 09-25-2023 RBC Ql (U) 25 /ul Negative [facility] Urine clarityOrdered By: Link Christianson on 09-25-2023 Clarity (U) Cloudy Clear [facility] Urine color determinationOrd ered By: Sharif Christianson on 09-25-2023 Color (U) Yellow Yellow [facility] Urine creatinine measurement (mass/volume)Ordered By: Sharif Christianson on 09-25-2023 Creatinine (U) [Mass/Vol] 175.00 mg/dL NO RANGE EST. [facility] Urine glucose detectionOrder ed By: Sharif Christianson on 09-25-2023 Glucose Ql (U) Normal mg/dl Normal [facility] Urine leukocyte esterase det ection by dipstickOrdered By: Sharif Christianson on 09-25-2023 Leukocyte esterase Test strip Ql (U) 500 /ul Negative [facility] Urine pHOrdered By: Sharif brasher on 09-25-2023 pH (U) 5.0 [pH] 5.0 - 8.0 [facility] Urine sediment bacteria coun t by microscopy (number/high power field)Ordered By: Sharif Christianson on 09-25-2023 Bacteria LM.HPF (Urine sed) [#/Area] 3 /[HPF] None Seen [facility] Urine specific gravity measu rementOrdered By: Sharif Christianson on 09-25-2023 Specific gravity (U) [Rel density] 1.025 1.002-1.030 [facility] Urine urobilinogen measureme ntOrdered By: Sharif Christianson on 09-25-2023 Urobilinogen Ql (U) Normal mg/dl Normal [facility] Absolute lymphocyte countOrd ered By: Sharif Christianson on 09-24-2023 Lymphocytes Auto (Unsp spec) [#/Vol] 0.43 10*3/uL 0.83-4.51 [facility] Automated lymphocyte count a s percentage of total leukocytesOrdered By: Sharif Christianson on 09-24-2023 Lymphocytes/100 WBC Auto (Unsp spec) 10.3 % 19-41 [facility] Basophil percentageOrdered B y: Sharif Christianson on 09-24-2023 Basophils/100 WBC (Bld) 0.7 % 0-1 [facility] Bilirubin [Mass/Vol] 0.30 mg/dL 0.20-1.00 [facility] Comment on above: For patients on eltr ombopag therapy, use of [employer] TBIL is not recommended. Chloride [Moles/Vol] 109 mmol/L 98-107 [facility] Cholesterol [Mass/Vol] 102 mg/dL <200 [facility] Comment on above: <200 mg/dL Desirable 200-240 mg/dL Borderline >240 mg/dL High Risk Eosinophils/100 WBC (Bld) 1.2 % 0-5 [facility] Glucose [Mass/Vol] 148 mg/dL 74-106 [facility] Comment on above: Fasting Glucose resu lt greater than or equal to 126 mg/dL suggests DIABETES MELLITUS per A.D.A. criteria. Hemoglobin (Bld) [Mass/Vol] 10.3 g/dL 12.0-15.0 [facility] Monocytes/100 WBC (Bld) 13.7 % 0-10 [facility] Neutrophils (Bld) [#/Vol] 3.0 10*3/uL 2.0-7.7 [facility] Neutrophils/100 WBC (Bld) 73.1 % 47-70 [facility] Potassium [Moles/Vol] 4.2 mmol/L 3.5-5.1 [facility] Protein [Mass/Vol] 7.1 g/dL 6.4-8.2 [facility] Sodium [Moles/Vol] 135 mmol/L 136-145 [facility] Triglyceride [Mass/Vol] 194 mg/dL <199 [facility] Comment on above: The drugs N-Acetylcy steine and Metamizole may falsely depress this assay.Serum Triglycerides Reference Interval Normal <150 mg/dL Borderline high 150 - 199 mg/dL High 200 - 499 mg/dL Very High > or = 500 mg/dL WBC (Bld) [#/Vol] 4.2 10*3/uL 4.4-11.0 [facility] Blood manual differential co mment interpretation (narrative result)Ordered By: Sharif Christianson on 09-24-2023 Manual differential comment Kuldip (Bld) [Interp] SCANNED [facility] Determination of erythrocyte mean corpuscular volume (MCV)Ordered By: Sharif Christianson on 09-24-2023 MCV (RBC) [Entitic vol] 107.4 fL 81-99 [facility] Erythrocyte distribution wid th ratioOrdered By: Sharif Christianson on 09-24-2023 Erythrocyte distribution width (RBC) [Ratio] 20.2 % 11.6-14.6 [facility] Erythrocyte distribution wid th standard deviationOrdered By: Sharif Christianson on 09-24-2023 Erythrocyte distribution width (RBC) [Entitic vol] 78.7 fL 35.1-43.9 [facility] Hematocrit Auto (Bld) [Volum e fraction]Ordered By: Sharif Christianson on 09-24-2023 Hematocrit (Bld) [Volume fraction] 33.5 % 37-47 [facility] Immature granulocytes/100 WB C Auto (Bld)Ordered By: Sharif Christianson on 09-24-2023 Immature granulocytes/100 WBC (Bld) 1.000 % 0.0-0.9 [facility] Comment on above: IG% - Immature Granu locytes (promyelocytes, myelocytes and metamyelocytes) > 1% indicates that a LEFT SHIFT is Present. Laboratory - Chemistry and C hemistry - challengeOrdered By: Sharif Christianson on 09-24-2023 Albumin/Globulin [Mass ratio] 0.9 {ratio} 0.9-2.4 [facility] ALP [Catalytic activity/Vol] 61 U/L 45-117 [facility] ALT [Catalytic activity/Vol] 28 U/L 13-56 [facility] Cholesterol in HDL [Mass/Vol] 46 mg/dL >40 [facility] Comment on above: The drugs N-Acetylcy steine and Metamizole may falsely depress this assay. Reference Range HDL <40 mg/dL Low HDL Cholesterol HDL >or= 60 mg/dL High HDL Cholesterol Cholesterol in LDL [Mass/Vol] 17 mg/dL 0-130 [facility] CO2 [Moles/Vol] 23.0 mmol/L 21.0-32.0 [facility] Globulin (S) [Mass/Vol] 3.7 g/dL 2.2-4.2 [facility] Urea nitrogen/Creatinine [Mass ratio] 15.3 mg/mg 10-20 [facility] Laboratory - Hematology and Cell countsOrdered By: Sharif Crhistianson on 09-24-2023 Anisocytosis Ql (Bld) 2+ [facility] MCH (RBC) [Entitic mass] 33.0 pg 27.0-32.0 [facility] MCHC (RBC) [Mass/Vol] 30.7 g/dL 32-36 [facility] Nucleated RBC/100 WBC (Bld) [Ratio] 0 % 0-5 [facility] Platelet mean volume (Bld) [Entitic vol] 9.0 fL 6.2-12.0 [facility] Platelets (Bld) [#/Vol] 244 10*3/uL 150-450 [facility] Macrocytes detectionOrdered By: Sharif Christianson on 09-24-2023 Macrocytes Ql (Bld) 1+ [facility] No Panel InformationOrdered By: Sharif Christianson on 09-24-2023 Estimated GFR (MDRD) Amer 94 mL/min >60 [facility] Comment on above: GFR Calc Estimated GFR (MDRD) Non-Af Amer 77 mL/min >60 [facility] Comment on above: Non- GFR Calc Vitamin D 25-Hydroxy 19.5 ng/mL [facility] Comment on above: Vitamin D 25(OH) Sta tus Range Deficiency <20 ng/mL (50nmol/L) Insufficiency 20 - 30 ng/mL (50 - 75 nmol/L) Sufficiency 30 - 100 ng/mL (75 - 250 nmol/L) Toxicity >100 ng/mL (>250 nmol/L) VLDL Cholesterol 39 mg/dL 5-40 [facility] RBC Auto (Bld) [#/Vol]Ordere d By: Sharif Christianson on 09-24-2023 RBC (Bld) [#/Vol] 3.12 10*6/uL 4.2-5.4 [facility] Serum or plasma calcium joaquin urement (mass/volume)Ordered By: Sharif Christianson on 09-24-2023 Calcium [Mass/Vol] 8.7 mg/dL 8.5-10.1 [facility] Serum or plasma creatinine m easurement (mass/volume)Ordered By: Sharif Crhistianson on 09-24-2023 Creatinine [Mass/Vol] 0.78 mg/dL 0.55-1.02 [facility] Comment on above: The validity of the calculated GFR & GFRAA in patients over 70 years has not been determined. Clinical correlation is essential. Serum or plasma urea nitroge n measurement (mass/volume)Ordered By: Sharif Christianson on 09-24-2023 Urea nitrogen [Mass/Vol] 12 mg/dL 7-18 [facility] Thin prep Papanicolaou smear with manual screeningOrdered By: Sharif Christianson on 09-24-2023 Thin prep Papanicolaou smear with manual screening 1+ [facility] Thin prep Papanicolaou smear with manual screening 3.4 g/dL 3.2-5.0 [facility] Thin prep Papanicolaou smear with manual screening 12 U/L 15-37 [facility] Thin prep Papanicolaou smear with manual screening 3 5-15 [facility] Whole blood hemoglobin A1c/t otal hemoglobin ratio (mass fraction)Ordered By: Sharif Christianson on 09-24-2023 HbA1c (Bld) [Mass fraction] 6.2 % 3.8-5.6 [facility] Comment on above: Normal < 5.7 % Predi abetic 5.7 - 6.4 % Diabetic >or= 6.5 % Please note range changes. Absolute lymphocyte countOrd ered By: Shannan Waldrop on 09-08-2023 Lymphocytes Auto (Unsp spec) [#/Vol] 0.37 10*3/uL 0.83-4.51 [facility] Automated lymphocyte count a s percentage of total leukocytesOrdered By: Shannan Waldrop on 09-08-2023 Lymphocytes/100 WBC Auto (Unsp spec) 19.3 % 19-41 [facility] Basophil percentageOrdered B y: Shannan Waldrop on 09-08-2023 Basophil percentage 2.6 mg/dL 2.5-4.9 [facility] Basophils/100 WBC (Bld) 2.1 % 0-1 [facility] Chloride [Moles/Vol] 105 mmol/L 98-107 [facility] Eosinophils/100 WBC (Bld) 1.6 % 0-5 [facility] Glucose [Mass/Vol] 189 mg/dL 74-106 [facility] Comment on above: Fasting Glucose resu lt greater than or equal to 126 mg/dL suggests DIABETES MELLITUS per A.D.A. criteria. Hemoglobin (Bld) [Mass/Vol] 9.7 g/dL 12.0-15.0 [facility] Monocytes/100 WBC (Bld) 12.5 % 0-10 [facility] Neutrophils (Bld) [#/Vol] 1.2 10*3/uL 2.0-7.7 [facility] Neutrophils/100 WBC (Bld) 62.9 % 47-70 [facility] Potassium [Moles/Vol] 4.5 mmol/L 3.5-5.1 [facility] Sodium [Moles/Vol] 136 mmol/L 136-145 [facility] WBC (Bld) [#/Vol] 1.9 10*3/uL 4.4-11.0 [facility] Determination of erythrocyte mean corpuscular volume (MCV)Ordered By: Shannan Waldrop on 09-08-2023 MCV (RBC) [Entitic vol] 99.7 fL 81-99 [facility] Erythrocyte distribution wid th ratioOrdered By: [facility] Benjie on 09-08-2023 Erythrocyte distribution width (RBC) [Ratio] 15.4 % 11.6-14.6 [facility] Erythrocyte distribution wid th standard deviationOrdered By: Shannan Waldrop on 09-08-2023 Erythrocyte distribution width (RBC) [Entitic vol] 53.4 fL 35.1-43.9 [facility] Hematocrit Auto (Bld) [Volum e fraction]Ordered By: Shannan Waldrop on 09-08-2023 Hematocrit (Bld) [Volume fraction] 29.6 % 37-47 [facility] Immature granulocytes/100 WB C Auto (Bld)Ordered By: [facility] Benjie on 09-08-2023 Immature granulocytes/100 WBC (Bld) 1.600 % 0.0-0.9 [facility] Comment on above: IG% - Immature Granu locytes (promyelocytes, myelocytes and metamyelocytes) > 1% indicates that a LEFT SHIFT is Present. Laboratory - Chemistry and C hemistry - challengeOrdered By: Shannan Waldrop on 09-08-2023 CO2 [Moles/Vol] 24.0 mmol/L 21.0-32.0 [facility] Magnesium [Mass/Vol] 1.4 mg/dL 1.6-2.6 [facility] Urea nitrogen/Creatinine [Mass ratio] 18.9 mg/mg 10-20 [facility] Laboratory - Hematology and Cell countsOrdered By: [facility]23 Anisocytosis Ql (Bld) 3+ [facility] MCH (RBC) [Entitic mass] 32.7 pg 27.0-32.0 [facility] MCHC (RBC) [Mass/Vol] 32.8 g/dL 32-36 [facility] Nucleated RBC/100 WBC (Bld) [Ratio] 4.2 % 0-5 [facility] Platelets (Bld) [#/Vol] 238 10*3/uL 150-450 [facility] No Panel InformationOrdered By: Shannan Waldrop on 09-08-2023 Estimated Creatinine Clearance Calc 64.20 ml/min [facility] Estimated GFR (MDRD) Amer 86 mL/min >60 [facility] Comment on above: GFR Calc Estimated GFR (MDRD) Non-Af Amer 71 mL/min >60 [facility] Comment on above: Non- GFR Calc Platelet mean volume Clif-Ec ker (Bld) [Entitic vol]Ordered By: Shannan Waldrop on 09-08-2023 Platelet mean volume (Bld) [Entitic vol] 9.5 fL 6.2-12.0 [facility] RBC Auto (Bld) [#/Vol]Ordere d By: Shannan Waldrop on 09-08-2023 RBC (Bld) [#/Vol] 2.97 10*6/uL 4.2-5.4 [facility] Review by pathologistOrdered By: Shannan Waldrop on 09-08-2023 Pathologist review Kuldip (Unsp spec) [Interp] Reviewed [facility] Comment on above: Previous reported re sult: Jeanette hough Edited by: CATIE on 09/09/23:1021Leukopenia and neutropenia.Macrocytic anemia.Clinical correlation necessary.Gamal Murillo M.D. 09/09/23 AMENDED REPORT 09/09/23 1021 PATH REV previously reported as: Jeanette hough Serum or plasma calcium joaquin urement (mass/volume)Ordered By: Shannan Waldrop on 09-08-2023 Calcium [Mass/Vol] 9.1 mg/dL 8.5-10.1 [facility] Serum or plasma creatinine m easurement (mass/volume)Ordered By: Shannan Waldrop on 09-08-2023 Creatinine [Mass/Vol] 0.84 mg/dL 0.55-1.02 [facility] Comment on above: The validity of the calculated GFR & GFRAA in patients over 70 years has not been determined. Clinical correlation is essential. Serum or plasma urea nitroge n measurement (mass/volume)Ordered By: Shannan Waldrop on 09-08-2023 Urea nitrogen [Mass/Vol] 16 mg/dL 7-18 [facility] Thin prep Papanicolaou smear with manual screeningOrdered By: Shannan Waldrop on 09-08-2023 Thin prep Papanicolaou smear with manual screening 7 5-15 [facility] Basophil percentageOrdered B y: Shannan Waldrop on 09-01-2023 Bilirubin [Mass/Vol] 0.60 mg/dL 0.20-1.00 [facility] Comment on above: For patients on eltr ombopag therapy, use of [employer] TBIL is not recommended. Protein [Mass/Vol] 6.6 g/dL 6.4-8.2 [facility] Blood manual differential co mment interpretation (narrative result)Ordered By: Shannan Waldrop on 09-01-2023 Manual differential comment Kuldip (Bld) [Interp] SCANNED [facility] Laboratory - Chemistry and C hemistry - challengeOrdered By: [facility] 09-[facility]2023 ALP [Catalytic activity/Vol] 59 U/L 45-117 [facility] ALT [Catalytic activity/Vol] 21 U/L 13-56 [facility] Globulin (S) [Mass/Vol] 3.7 g/dL 2.2-4.2 [facility] Serum or plasma albumin joaquin urement (mass/volume)Ordered By: Shannan Waldrop on 09-01-2023 Albumin [Mass/Vol] 2.9 g/dL 3.2-5.0 [facility] Serum or plasma albumin/glob ulin mass ratioOrdered By: [facility] on 09-01-2023 Albumin/Globulin [Mass ratio] 0.8 {ratio} 0.9-2.4 [facility] Thin prep Papanicolaou smear with manual screeningOrdered By: Shannan Waldrop on 09-01-2023 Thin prep Papanicolaou smear with manual screening 9 U/L 15-37 [facility] Basophil percentageOrdered B y: Shannan Waldrop on 08-19-2023 Basophil percentage 0-5 SEEN /hpf 0-5 [facility] Basophil percentageOrdered B y: Nic Hall on 08-19-2023 LDH [Catalytic activity/Vol] 160 U/L 84-246 [facility] Bilirubin Test strip Ql (U)O rdered By: Shannan Waldrop on 08-19-2023 Bilirubin Ql (U) Negative Negative [facility] Culture, urineOrdered By: Adriana Waldrop on 08-19-2023 Bacteria identified Cx Nom (U) Escherichia coli [facility] Bacteria identified Cx Nom (U) Enterococcus faecalis [facility] Bacteria identified Cx Nom (U) Escherichia coli Abnormal [facility] Bacteria identified Cx Nom (U) Enterococcus faecalis Abnormal [facility] Epithelial cells.squamous LM Ql (Urine sed)Ordered By: Shannan Waldrop on 08-19-2023 Epithelial cells.squamous LM.HPF (Urine sed) [#/Area] 0 /[HPF] 5-10 [facility] Glucose Ql (U)Ordered By: Adriana Waldrop on 08-19-2023 Glucose (U) [Mass/Vol] 100 mg/dL High Normal [facility] Ketones Test strip Ql (U)Ord ered By: Shannan Waldrop on 08-19-2023 Ketones Ql (U) 5 mg/dl High Negative [facility] Mucus LM Ql (Urine sed)Order ed By: Shannan Waldrop on 08-19-2023 Mucus Ql (Urine sed) 1+ /hpf [facility] Nitrite Test strip Ql (U)Ord ered By: Shannan Waldrop on 08-19-2023 Nitrite Ql (U) Negative Negative [facility] Protein Test strip Ql (U)Ord ered By: Shannan Waldrop on 08-19-2023 Protein Ql (U) 15 mg/dl High Negative [facility] RBC Ql (U)Ordered By: Lili Waldrop on 08-19-2023 Urine Occult Blood Negative Negative [facility] Urine RBC 0 SEEN /hpf 0-5 [facility] Squamous epithelial cells de tection in urine sediment by light microscopyOrdered By: Shannan Waldrop on 08-19-2023 Epithelial cells.squamous LM Ql (Urine sed) 0-5 SEEN /hpf 5-10 [facility] Trichomonas screening testOr dered By: Shannan Waldrop on 08-19-2023 Urine WBC 0-5 SEEN /hpf 0-5 [facility] Urine blood detectionOrdered By: Shannan Waldrop on 08-19-2023 RBC Ql (U) Negative Negative [facility] RBC Ql (U) 0 SEEN /hpf 0-5 [facility] Urine clarityOrdered By: Howard Waldrop on 08-19-2023 Clarity (U) Clear Clear [facility] Urine color determinationOrd ered By: Shannan Waldrop on 08-19-2023 Color (U) Yellow Yellow [facility] Urine glucose detectionOrder ed By: Shannan Waldrop on 08-19-2023 Glucose Ql (U) 100 mg/dl High Normal [facility] Urine leukocyte esterase det ection by dipstickOrdered By: Shannan Waldrop on 08-19-2023 Leukocyte esterase Test strip Ql (U) 25 /ul High Negative [facility] Urine pHOrdered By: Shannan Waldrop on 08-19-2023 pH (U) 5.0 [pH] 5.0 - 8.0 [facility] Urine sediment bacteria coun t by microscopy (number/high power field)Ordered By: Shannan Waldrop on 08-19-2023 Bacteria LM.HPF (Urine sed) [#/Area] 0 /[HPF] None Seen [facility] Urine specific gravity measu rementOrdered By: Shannan Waldrop on 08-19-2023 Specific gravity (U) [Rel density] 1.030 1.002-1.030 [facility] Urobilinogen Auto test strip Ql (U)Ordered By: Shannan Waldrop on 08-19-2023 Urine Urobilinogen Normal mg/dl Normal [facility] Urobilinogen Ql (U) Normal mg/dl Normal [facility] Iron (Unsp spec) [Mass/Mass] Ordered By: Shannan Waldrop on 08-04-2023 Iron [Mass/Vol] 65 ug/dL 50-170 [facility] Iron measurement (mass/mass) Ordered By: Shannan Waldrop on 08-04-2023 Iron (Unsp spec) [Mass/Mass] 65 ug/dL 50-170 [facility] Iron saturation [Mass fracti on][facility]: [facility] on 08-04-2023 Iron Saturation 23.6 % 15.0-55.0 [facility] No Panel InformationOrdered By: [facility] on 08-04-2023 Total Iron Binding Capacity 276 ug/dL 250-450 [facility] Serum or plasma ferritin bryce surement (mass/volume)Ordered By: [facility] Benjie on 08-04-2023 Ferritin [Mass/Vol] 102 ng/mL 8-252 [facility] Serum or plasma iron saturat ion measurement (mass fraction)Ordered By: [facility] on 08-04-2023 Iron saturation [Mass fraction] 23.6 % 15.0-55.0 [facility] Absolute lymphocyte countOrd ered By: [facility] on 07-28-2023 Lymphocytes Auto (Unsp spec) [#/Vol] 1.23 10*3/uL 0.83-4.51 [facility] Basophil percentageOrdered B y: Shannan Waldrop on 07-28-2023 Basophil percentage 3.0 mg/dL 2.5-4.9 [facility] Basophils/100 WBC (Bld) 0.5 % 0-1 [facility] Bilirubin [Mass/Vol] 0.40 mg/dL 0.20-1.00 [facility] Comment on above: For patients on eltr ombopag therapy, use of Dimension [facility] [facility] TBIL is not recommended. Chloride [Moles/Vol] 108 mmol/L 98-107 [facility] Eosinophils/100 WBC (Bld) 1.2 % 0-5 [facility] Glucose [Mass/Vol] 223 mg/dL 74-106 [facility] Comment on above: Glucose result great er than or equal to 200 mg/dLsuggests DIABETES MELLITUS per A.D.A. criteria. Neutrophils (Bld) [#/Vol] 5.3 10*3/uL 2.0-7.7 [facility] Neutrophils/100 WBC (Bld) 71.1 % 47-70 [facility] Potassium [Moles/Vol] 4.2 mmol/L 3.5-5.1 [facility] Protein [Mass/Vol] 6.9 g/dL 6.4-8.2 [facility] Sodium [Moles/Vol] 139 mmol/L 136-145 [facility] WBC (Bld) [#/Vol] 7.5 10*3/uL 4.4-11.0 [facility] Blood erythrocytes count (nu mber/volume)Ordered By: Shannan Waldrop on 07-28-2023 RBC (Bld) [#/Vol] 4.07 10*6/uL 4.2-5.4 [facility] Blood hemoglobin measurement (mass/volume)Ordered By: Shannan Waldrop on 07-28-2023 Hemoglobin (Bld) [Mass/Vol] 12.7 g/dL 12.0-15.0 [facility] Blood lymphocytes/100 leukoc ytesOrdered By: [facility] 07-[facility]-2023 Lymphocytes/100 WBC (Bld) 16.4 % 19-41 [facility] Blood monocytes/100 leukocyt esOrdered By: [facility] Benjie on 07-28-2023 Monocytes/100 WBC (Bld) 10.4 % 0-10 [facility] Blood platelet mean volumeOr dered By: Shannan Waldrop on 07-28-2023 Platelet mean volume (Bld) [Entitic vol] 9.5 fL 6.2-12.0 [facility] Determination of erythrocyte mean corpuscular volume (MCV)Ordered By: Shannan Waldrop on 07-28-2023 MCV (RBC) [Entitic vol] 99.5 fL 81-99 [facility] Hematocrit Auto (Bld) [Volum e fraction]Ordered By: [facility] on 07-28-2023 Hematocrit (Bld) [Volume fraction] 40.5 % 37-47 [facility] Laboratory - Chemistry and C hemistry - challengeOrdered By: [facility] Benjie on 07-28-2023 ALP [Catalytic activity/Vol] 64 U/L 45-117 [facility] ALT [Catalytic activity/Vol] 20 U/L 13-56 [facility] CO2 [Moles/Vol] 24.0 mmol/L 21.0-32.0 [facility] Globulin (S) [Mass/Vol] 3.7 g/dL 2.2-4.2 [facility] Magnesium [Mass/Vol] 1.6 mg/dL 1.6-2.6 [facility] Urea nitrogen/Creatinine [Mass ratio] 16.5 mg/mg 10-20 [facility] Laboratory - Hematology and Cell countsOrdered By: Shannan Waldrop on 07-28-2023 Erythrocyte distribution width (RBC) [Entitic vol] 53.1 fL 35.1-43.9 [facility] Erythrocyte distribution width (RBC) [Ratio] 14.6 % 11.6-14.6 [facility] Immature granulocytes/100 WBC (Bld) 0.400 % 0.0-0.9 [facility] Comment on above: IG% - Immature Granu locytes (promyelocytes, myelocytes and metamyelocytes) > 1% indicates that a LEFT SHIFT is Present. MCH (RBC) [Entitic mass] 31.2 pg 27.0-32.0 [facility] Nucleated RBC/100 WBC (Bld) [Ratio] 0 % 0-5 [facility] MCHC Auto (RBC) [Mass/Vol]Or dered By: Shannan Waldrop on 07-28-2023 MCHC (RBC) [Mass/Vol] 31.4 g/dL 32-36 [facility] No Panel InformationOrdered By: Shannan Waldrop on 07-28-2023 Estimated Creatinine Clearance Calc 42.59 ml/min [facility] Estimated GFR (MDRD) Amer 102 mL/min >60 [facility] Comment on above: GFR Calc Estimated GFR (MDRD) Non-Af Amer 85 mL/min >60 [facility] Comment on above: Non- GFR Calc Platelets bldOrdered By: Howard Waldrop on 07-28-2023 Platelets (Bld) [#/Vol] 284 10*3/uL 150-450 [facility] Serum or plasma albumin joaquin urement (mass/volume)Ordered By: Shannan Waldrop on 07-28-2023 Albumin [Mass/Vol] 3.2 g/dL 3.2-5.0 [facility] Serum or plasma albumin/glob ulin mass ratioOrdered By: Shannan Waldrop on 07-28-2023 Albumin/Globulin [Mass ratio] 0.9 {ratio} 0.9-2.4 [facility] Serum or plasma calcium joaquin urement (mass/volume)Ordered By: Shannan Waldrop on 07-28-2023 Calcium [Mass/Vol] 9.1 mg/dL 8.5-10.1 [facility] Serum or plasma creatinine m easurement (mass/volume)Ordered By: Shannan Waldrop on 07-28-2023 Creatinine [Mass/Vol] 0.73 mg/dL 0.55-1.02 [facility] Comment on above: The validity of the calculated GFR & GFRAA in patients over 70 years has not been determined. Clinical correlation is essential. Serum or plasma urea nitroge n measurement (mass/volume)Ordered By: [facility] on 07-28-2023 Urea nitrogen [Mass/Vol] 12 mg/dL 7-18 [facility] Thin prep Papanicolaou smear with manual screeningOrdered By: [facility] on 07-28-2023 Thin prep Papanicolaou smear with manual screening 10 U/L 15-37 [facility] Thin prep Papanicolaou smear with manual screening 7 5-15 [facility] Basophil percentageOrdered B y: Brennen Roth on 07-24-2023 Creatinine [Mass/Vol] 1.2 mg/dL 0.55-1.02 [facility] Laboratory - Chemistry and C hemistry - challengeOrdered By: Brennen Roth on 07-24-2023 GFR/1.73 sq M.predicted among non-blacks MDRD (S/P/Bld) [Vol rate/Area] 47.0000 mL/min/{1.73_m2} >60 [facility] Glucose Glucometer (BldC) [M ass/Vol]Ordered By: Isreal Carvalho on 07-22-2023 Glucose [Mass/Vol] 125 mg/dL 74-106 [facility] Comment on above: MANAGEMENT OF PATIEN T CARE PER NURSING PROTOCOL CNOVon 06-19-2023 CNOV Office Visit (THORMN) KAELYN POWERS ([id number]) 1955 [facility] Date Time Provider Department 06/19/23 10:40 AM JOHN GREEN During your visit today, we recorded the following information about you: Temperature Pulse Respiration Blood pressure 98.5 degrees 58/minute 14/minute 119/88 Weight Height 82.6 kg 1.575 m John Green MD, PhD 06/20/2023 12:10 PM Unsigned Sales Vice President [place] [address] [place] DEPARTMENT OF THORACIC AND CARDIOVASCULAR SURGERY NAME: KAELYN POWERS CLINIC #: [id number] DATE: 06/19/2023 AGE: 67 PHYSICIAN: John Green M.D., Ph.D. I had the sincere pleasure of seeing the patient with the family in my Thoracic Surgery Clinic. This very pleasant and unfortunate 67-year-old woman, appears to have been simultaneously diagnosed with lung cancer, COVID pneumonia, and ischemic heart disease. The 3 of these processes have conspired to place her into a hospital. She first started feeling bad a few weeks ago and developed some chest pain as well as some confusion. She was ultimately taken into a hospital through an emergency room portal and diagnosed with COVID, but at the same time, was noted to have VT, which was likely an NSTEMI. The patient had been followed for a left pulmonary nodule, which has been increasing in size and was diagnosed as non-small cell lung cancer with adenocarcinoma histology. The cancer itself is locally advanced and is likely a T2 N1 lesion with direct involvement of hilar lymph nodes based on the several radiographic studies that I have independently reviewed (PET scan and chest CT scan.) The patient is currently on dual antiplatelet therapy and did have a subdural hematoma evacuated just a few months ago. All of these issues are conspiring to remove surgery as a mainstay of therapy for her lung cancer given that of her problems that she currently has, heart disease would take precedence with her resolving COVID pneumonia close behind. My sense is that she will need her heart sorted out and almost certainly cardiac catheterization is in her near future. She has multiple prior stents in place and there is the real possibility that she will need an additional interventional cardiology procedure and this may very well be a stent. Because of this, the time to treatment for this diagnosed cancer is extending and it will soon advance from the thorax into her system and I would suggest moving towards definitive chemo, radio, and immunotherapy as soon as possible as directed by her improvement of her current COVID pneumonia and palliation of her ischemic heart disease. John Green M.D., Ph.D. SM:[id number] John Green MD, PhD 06/23/2023 3:00 PM Signed [facility] THORACIC SURGERY OUTPATIENT CONSULT NOTE Kaelyn Powers [id number] Requesting Provider: Pinky Winter MD Thoracic Physician: John Green MD Chief Complaint: Lung cancer Impression: 67 yo former 50 pack year smoker F with CAD/VT (ASA+Plavix), SDH s/p crainotomy and evacuation, PAD (cannot walk 10 feet without stopping), EtOH use, who presents with a biopsy proven [id number] NSCLC of the left upper lobe by PET scan. FEV1 100%. DLCO 128%. 6MWT 54.8% Extremely high cardiovascular risk for lobectomy. Poor functional status given CAD, imbalance from SDH, and PAD. Plan: Refer to radiation oncology and oncology for definitive chemoradiotherapy with immunotherapy as the patient's cardiovascular risk and functional status is more than likely prohibitive for anatomic lung resection. SIGNATURE: Yann Leahy MD DATE of SERVICE: 06/19/2023 TIME of SERVICE: 10:34 AM HPI: Kaelyn Powers is a 67 year old White female referred by Pinky Winter for an opinion regarding management of Lung Cancer. She is currently symptomatic. (document at least 4 of these elements) Location: left and upper Quality: no pain Severity: no pain Duration: 2 years ECOG Score: 1 67 yo former 50 pack year smoker F with CAD/VT (ASA+Plavix), SDH s/p crainotomy and evacuation, PAD (cannot walk 10 feet without stopping), EtOH use, who presents with a biopsy proven [id number] NSCLC of the left upper lobe by PET scan. This has been monitored for the last two years. However, over the last year the patient has been hospitalized for a SDH, then COVID, then a mild VT. She did not receive any coronary angioplasty for this. She has not yet seen an oncologist or radiation oncologist. FEV1 100%. DLCO 128%. 6MWT 54.8% Living arrangement: Lives with family/friend Functional status: Independent Unintentional weight loss over last 3 months: No PAST MEDICAL HISTORY Diagnosis Date Alcoholism (HCC) Anemia Arthritis Bladder infection CAD S/P percutaneous cor (more content not included)... Normal [facility] Absolute lymphocyte countOrd ered By: Gwendolyn Petersen on 06-14-2023 Lymphocytes Auto (Unsp spec) [#/Vol] 1.15 10*3/uL 0.83-4.51 [facility] Basophil percentageOrdered B y: Gwendolyn Petersen on 06-14-2023 Basophils/100 WBC (Bld) 0.2 % 0-1 [facility] Chloride [Moles/Vol] 110 mmol/L 98-107 [facility] Eosinophils/100 WBC (Bld) 1.0 % 0-5 [facility] Glucose [Mass/Vol] 156 mg/dL 74-106 [facility] Comment on above: Fasting Glucose resu lt greater than or equal to 126 mg/dL suggests DIABETES MELLITUS per A.D.A. criteria. Neutrophils (Bld) [#/Vol] 2.3 10*3/uL 2.0-7.7 [facility] Neutrophils/100 WBC (Bld) 56.4 % 47-70 [facility] Potassium [Moles/Vol] 3.8 mmol/L 3.5-5.1 [facility] Sodium [Moles/Vol] 136 mmol/L 136-145 [facility] WBC (Bld) [#/Vol] 4.1 10*3/uL 4.4-11.0 [facility] Blood erythrocytes count (nu mber/volume)Ordered By: Gwendolyn Petersen on 06-14-2023 RBC (Bld) [#/Vol] 4.13 10*6/uL 4.2-5.4 [facility] Blood hemoglobin measurement (mass/volume)Ordered By: Gwendolyn Petersen on 06-14-2023 Hemoglobin (Bld) [Mass/Vol] 13.3 g/dL 12.0-15.0 [facility] Blood lymphocytes/100 leukoc ytesOrdered By: Gwendolyn Petersen on 06-14-2023 Lymphocytes/100 WBC (Bld) 28.0 % 19-41 [facility] Blood monocytes/100 leukocyt esOrdered By: Gwendolyn Petersen on 06-14-2023 Monocytes/100 WBC (Bld) 13.9 % 0-10 [facility] Blood platelet mean volumeOr dered By: Gwendolyn Petersen on 06-14-2023 Platelet mean volume (Bld) [Entitic vol] 9.0 fL 6.2-12.0 [facility] Determination of erythrocyte mean corpuscular volume (MCV)Ordered By: Gwendolyn Petersen on 06-14-2023 MCV (RBC) [Entitic vol] 98.1 fL 81-99 [facility] Glucose Glucometer (BldC) [M ass/Vol]Ordered By: Gwendolyn Petersen on 06-14-2023 Glucose [Mass/Vol] 174 mg/dL 74-106 [facility] Comment on above: MANAGEMENT OF PATIEN T CARE PER NURSING PROTOCOL Hematocrit Auto (Bld) [Volum e fraction]Ordered By: Gwendolyn Petersen on 06-14-2023 Hematocrit (Bld) [Volume fraction] 40.5 % 37-47 [facility] Laboratory - Chemistry and C hemistry - challengeOrdered By: Gwendolyn Petersen on 06-14-2023 CO2 [Moles/Vol] 26.0 mmol/L 21.0-32.0 [facility] Urea nitrogen/Creatinine [Mass ratio] 20.5 mg/mg 10-20 [facility] Laboratory - Hematology and Cell countsOrdered By: Gwendolyn Petersen on 06-14-2023 Erythrocyte distribution width (RBC) [Entitic vol] 49.2 fL 35.1-43.9 [facility] Erythrocyte distribution width (RBC) [Ratio] 13.8 % 11.6-14.6 [facility] Immature granulocytes/100 WBC (Bld) 0.500 % 0.0-0.9 [facility] Comment on above: IG% - Immature Granu locytes (promyelocytes, myelocytes and metamyelocytes) > 1% indicates that a LEFT SHIFT is Present. MCH (RBC) [Entitic mass] 32.2 pg 27.0-32.0 [facility] Nucleated RBC/100 WBC (Bld) [Ratio] 0 % 0-5 [facility] MCHC Auto (RBC) [Mass/Vol]Or dered By: Gwendolyn Petersen on 06-14-2023 MCHC (RBC) [Mass/Vol] 32.8 g/dL 32-36 [facility] No Panel InformationOrdered By: Gwendolyn Petersen on 06-14-2023 Estimated Creatinine Clearance Calc 42.59 ml/min [facility] Estimated GFR (MDRD) Amer 132 mL/min >60 [facility] Comment on above: GFR Calc Estimated GFR (MDRD) Non-Af Amer 109 mL/min >60 [facility] Comment on above: Non- GFR Calc Platelets bldOrdered By: Keyon Petersen on 06-14-2023 Platelets (Bld) [#/Vol] 170 10*3/uL 150-450 [facility] Serum or plasma calcium joaquin urement (mass/volume)Ordered By: Gwendolyn Petersen on 06-14-2023 Calcium [Mass/Vol] 8.1 mg/dL 8.5-10.1 [facility] Serum or plasma creatinine m easurement (mass/volume)Ordered By: Gwendolyn Petersen on 06-14-2023 Creatinine [Mass/Vol] 0.58 mg/dL 0.55-1.02 [facility] Comment on above: The validity of the calculated GFR & GFRAA in patients over 70 years has not been determined. Clinical correlation is essential. Serum or plasma urea nitroge n measurement (mass/volume)Ordered By: Gwendolyn Petersen on 06-14-2023 Urea nitrogen [Mass/Vol] 12 mg/dL 7-18 [facility] Thin prep Papanicolaou smear with manual screeningOrdered By: Gwendolyn Petersen on 06-14-2023 Thin prep Papanicolaou smear with manual screening 0 5-15 [facility] Whole blood hemoglobin A1c/t otal hemoglobin ratio (mass fraction)Ordered By: Gwendolyn Petersen on 06-14-2023 HbA1c (Bld) [Mass fraction] 8.1 % 3.8-5.6 [facility] Comment on above: Normal < 5.7 % Predi abetic 5.7 - 6.4 % Diabetic >or= 6.5 % Please note range changes. Laboratory - CoagulationOrde red By: Williams Nye on 06-13-2023 aPTT Coag (Bld) [Time] 52.7 s 24.1-36.2 [facility] Basophil percentageOrdered B y: Nic Caraballo on 06-12-2023 Cholesterol [Mass/Vol] 133 mg/dL <200 [facility] Comment on above: <200 mg/dL Desirable 200-240 mg/dL Borderline >240 mg/dL High Risk Triglyceride [Mass/Vol] 129 mg/dL <199 [facility] Comment on above: The drugs N-Acetylcy steine and Metamizole may falsely depress this assay.Serum Triglycerides Reference Interval Normal <150 mg/dL Borderline high 150 - 199 mg/dL High 200 - 499 mg/dL Very High > or = 500 mg/dL No Panel InformationOrdered By: Gena Johnson on 06-12-2023 Troponin I High Sensitivity 1587 pg/mL 3.0-54.0 [facility] Comment on above: Critical Result(s) C alled at: 11:58:06 06/12/2023 by: Maldonado Shannon RN (ICU). Results read back by same. Please Note: New Test Units and Gender Specific Reference Ranges. For more information see Policy Stat Procedure [facility] High Sensitivity Troponin (TNIH) and attachments. Serum or plasma cholesterol in HDL measurement (mass/volume)Ordered By: Nic Caraballo on 06-12-2023 Cholesterol in HDL [Mass/Vol] 41 mg/dL >40 [facility] Comment on above: The drugs N-Acetylcy steine and Metamizole may falsely depress this assay. Reference Range HDL <40 mg/dL Low HDL Cholesterol HDL >or= 60 mg/dL High HDL Cholesterol Serum or plasma cholesterol in VLDL measurement (mass/volume)Ordered By: Nic Caraballo on 06-12-2023 Cholesterol in VLDL [Mass/Vol] 26 mg/dL 5-40 [facility] Serum or plasma low density lipoprotein (LDL) cholesterol measurement (mass/volume)Ordered By: Nic Caraballo on 06-12-2023 Cholesterol in LDL [Mass/Vol] 66 mg/dL 0-130 [facility] Absolute lymphocyte countOrd ered By: Williams yNe on 06-11-2023 Lymphocytes Auto (Unsp spec) [#/Vol] 1.11 10*3/uL 0.83-4.51 [facility] Basophil percentageOrdered B y: Williams Nye on 06-11-2023 Basophils/100 WBC (Bld) 0.6 % 0-1 [facility] Chloride [Moles/Vol] 99 mmol/L 98-107 [facility] Eosinophils/100 WBC (Bld) 0.5 % 0-5 [facility] Glucose [Mass/Vol] 194 mg/dL 74-106 [facility] Comment on above: Fasting Glucose resu lt greater than or equal to 126 mg/dL suggests DIABETES MELLITUS per A.D.A. criteria. Neutrophils (Bld) [#/Vol] 4.0 10*3/uL 2.0-7.7 [facility] Neutrophils/100 WBC (Bld) 63.2 % 47-70 [facility] Potassium [Moles/Vol] 4.1 mmol/L 3.5-5.1 [facility] Sodium [Moles/Vol] 132 mmol/L 136-145 [facility] WBC (Bld) [#/Vol] 6.3 10*3/uL 4.4-11.0 [facility] Blood erythrocytes count (nu mber/volume)Ordered By: Williams Nye on 06-11-2023 RBC (Bld) [#/Vol] 4.70 10*6/uL 4.2-5.4 [facility] Blood hemoglobin measurement (mass/volume)Ordered By: Williams Nye on 06-11-2023 Hemoglobin (Bld) [Mass/Vol] 15.4 g/dL 12.0-15.0 [facility] Blood lymphocytes/100 leukoc ytesOrdered By: Williams Nye on 06-11-2023 Lymphocytes/100 WBC (Bld) 17.5 % 19-41 [facility] Blood monocytes/100 leukocyt esOrdered By: Williams Nye on 06-11-2023 Monocytes/100 WBC (Bld) 17.4 % 0-10 [facility] Blood platelet mean volumeOr dered By: Williams Nye on 06-11-2023 Platelet mean volume (Bld) [Entitic vol] 9.8 fL 6.2-12.0 [facility] Determination of erythrocyte mean corpuscular volume (MCV)Ordered By: Williams Nye on 06-11-2023 MCV (RBC) [Entitic vol] 96.4 fL 81-99 [facility] Hematocrit Auto (Bld) [Volum e fraction]Ordered By: Williams Nye on 06-11-2023 Hematocrit (Bld) [Volume fraction] 45.3 % 37-47 [facility] INR in Blood by Coagulation assayOrdered By: Williams Nye on 06-11-2023 INR Coag (Bld) [Relative time] 1.2 {INR} [facility] Influenza virus A and B and SARS-CoV-2 (COVID-19) Ag panel - Upper respiratory specimOrdered By: Williams Nye on 06-11-2023 SARS-CoV-2 & FLU Antigen (Rapid) SARS-CoV-2 (COVID 19) [facility] SARS-CoV-2 & FLU Antigen (Rapid) SARS-CoV-2 (COVID 19) [facility] Laboratory - Chemistry and C hemistry - challengeOrdered By: Williams Nye on 06-11-2023 CO2 [Moles/Vol] 27.0 mmol/L 21.0-32.0 [facility] Urea nitrogen/Creatinine [Mass ratio] 13.0 mg/mg 06-06 [facility] Laboratory - CoagulationOrde red By: Williams Nye on 06-11-2023 aPTT Coag (Bld) [Time] 35.8 s 24.1-36.2 [facility] PT Coag (PPP) [Time] 14.9 s 11.7-14.9 [facility] Laboratory - Hematology and Cell countsOrdered By: Williams Nye on 06-11-2023 Erythrocyte distribution width (RBC) [Entitic vol] 48.1 fL 35.1-43.9 [facility] Erythrocyte distribution width (RBC) [Ratio] 13.4 % 11.6-14.6 [facility] Immature granulocytes/100 WBC (Bld) 0.800 % 0.0-0.9 [facility] Comment on above: IG% - Immature Granu locytes (promyelocytes, myelocytes and metamyelocytes) > 1% indicates that a LEFT SHIFT is Present. MCH (RBC) [Entitic mass] 32.8 pg 27.0-32.0 [facility] Nucleated RBC/100 WBC (Bld) [Ratio] 0 % 0-5 [facility] MCHC Auto (RBC) [Mass/Vol]Or dered By: Williams Nye on 06-11-2023 MCHC (RBC) [Mass/Vol] 34.0 g/dL 32-36 [facility] No Panel InformationOrdered By: Williams Nye on 06-11-2023 Estimated Creatinine Clearance Calc 46.29 ml/min [facility] Estimated GFR (MDRD) Amer 78 mL/min >60 [facility] Comment on above: GFR Calc Estimated GFR (MDRD) Non-Af Amer 64 mL/min >60 [facility] Comment on above: Non- GFR Calc Troponin I High Sensitivity 816 pg/mL 3.0-54.0 [facility] Comment on above: Critical Result(s) C alled at: 18:08:39 06/11/2023 by: Shaina JONES. Results read back by same. Please Note: New Test Units and Gender Specific Reference Ranges. For more information see Policy Stat Procedure [facility] [facility] High Sensitivity Troponin (TNIH) and attachments. Platelets bldOrdered By: Jamari Nye on 06-11-2023 Platelets (Bld) [#/Vol] 234 10*3/uL 150-450 [facility] Serum or plasma calcium joaquin urement (mass/volume)Ordered By: Williams Nye on 06-11-2023 Calcium [Mass/Vol] 9.0 mg/dL 8.5-10.1 [facility] Serum or plasma creatinine m easurement (mass/volume)Ordered By: Williams Nye on 06-11-2023 Creatinine [Mass/Vol] 0.92 mg/dL 0.55-1.02 [facility] Comment on above: The validity of the calculated GFR & GFRAA in patients over 70 years has not been determined. Clinical correlation is essential. Serum or plasma urea nitroge n measurement (mass/volume)Ordered By: Williams Nye on 06-11-2023 Urea nitrogen [Mass/Vol] 12 mg/dL 7-18 [facility] Thin prep Papanicolaou smear with manual screeningOrdered By: Williams Nye on 06-11-2023 Thin prep Papanicolaou smear with manual screening 6 5-15 [facility] Clare 06-04-2023 CNPN Telephone (THORMN) KAELYN POWERS ([id number]) 1955 F T Date Time Provider Department 06/04/23 JOHN GREEN During your visit today, we recorded the following information about you: Eli Rae 06/06/2023 1:33 PM Addendum LOCAL PATIENT Received Call from Dr. Maggy Powers is being referred to John Green M.D., Ph. D. by Pinky Winter MD ([facility]) [address] [place] [id number] Patient diagnosis/Reason for consult: NSCLC, Nodule to be Resected Referral triage process explained: Yes Patient will receive a call from Thoracic NPM after triage review with surgeon to discuss any additional testing and/or consults that will be scheduled. Pt will then receive a call from our scheduling office for scheduling. Please call pt at [phone]. Patient was informed consultation could be at [place] or [facility] [place]: No Patient Registration: Registration complete/updated: yes Insurance card(s) scanned in [employer] with in the past year: Yes: Date: 04/18/22 Pt's [employer] is inactive. Ok to communicate to pt via Derc[employer] not asked Medical Records: Records in [facility] (internal CC records): No Imaging in [facility] (internal [facility] records): No Care Everywhere - queried yes, downloaded No Linked Outside Organizations (list): n/a OSH Records Requested: yes Date: June 04, 2023 Outside Hospital(s) requested records from: Dr. Winter Received: yes Uploaded: Yes. Waiting on additional records: No. Missing (list): N/A OSH Pathology Slides Requested: no Date: N/A Outside Hospital(s) slides requested from: n/a OS Radiology Imaging Requested: yes Date: June 05, 2023 Outside Hospital(s) requested imaging from: [facility]. Imaging will be received via Electronic Transfer Received: Yes Imaging uploaded: Yes Waiting on additional: No. Missing (list): n/a Additional providers added to Care Teams: Yes Additional Notes/Comments: n/a Enct routed to: [facility] for Triage Eli Rae, exchange administrator Altagracia Dash RN 06/16/2023 1:16 PM Addendum Thoracic Surgery Consultation - review of records for appointment scheduling Received medical records from the office of Pinky Winter MD ([facility]) [address] [facility] [id number] Patient is being referred to John Green MD, PhD by Pinky Winter V for Lung Cancer Outside hospital records scanned Pathology: Procedures: 05.01 ct guided lung bx Imaging PET/CT: 05/27 CT (chest, : 06/11 - need imagign Normal enhancement of the main pulmonary artery and right and left pulmonary arteries. Normal enhancement of the bilateral peripheral pulmonary arteries. There is no demonstrated pulmonary embolism. Normal thoracic aorta and visualized great vessels. There is no demonstrated aortic dissection. Normal heart and pericardium. Normal mediastinum. Normal hilar regions. Normal visualized trachea and bronchi. The lungs are well expanded. There is a 3.9 x 2.2 cm spiculated left upper lobe mass, larger than on previous study. Normal pleura. Normal chest wall structures. Normal osseous structures. Normal visualized upper abdomen. Cardiopulmonary Testing PFT's/Six: 05/14 Cardiac: 06/12/23 echo Interpretation Summary The study was technically difficult. The left ventricular ejection fraction is 60 %. Posterior basal and lateral basal hypokinesis. There is moderate biatrial dilatation. Office Notes/Consults 06/12 [facility] inpatient - dr black Assessment/Plan (1) NSTEMI, initial episode of care: PLAN: NSTEMI in the setting of COVID-19 infection. Continue aspirin. Start on clopidogrel. Stop cilostazol. Check echocardiogram. Start on nitrates. Troponin elevated but no significant upward or downward trend. Will repeat. (2) Coronary artery disease: PLAN: History of stent to the left circumflex in 2016. Aspirin. Plavix. Statins. (3) Diabetes: PLAN: As per internal medicine. (4) COVID-19: PLAN: As per internal medicine. (5) Peripheral arterial disease: PLAN: Aspirin and Plavix. 06/04 pulm History of: FAMILY HISTORY Problem Relation Age of Onset Diabetes Sister hypertension, obesity Breast Cancer Sister Hypertension Brother PAST MEDICAL HISTORY Diagnosis Date Alcoholism (HCC) Anemia Arthritis Bladder infection CAD S/P percutaneous coronary angioplasty Depression Gall stones Gastritis Heart attack (HCC) 2016 stent x 1 HTN (hypertension) Hyperlipemia Kidney stones Leg pain Peripheral vascular disease (HCC) Personal history of malignant neoplasm of other parts of uterus 1983 No BSO or radiation Rheumatoid arthritis (HCC) Subdural hematoma 10/28/2021 d/t fall requiring surgical intervention Type 2 diabetes mellitus (HCC) recent A1C (more content not included)... Normal [facility] Absolute lymphocyte countOrd ered By: Claude Nunez on 05-01-2023 Lymphocytes Auto (Unsp spec) [#/Vol] 1.69 10*3/uL 0.83-4.51 [facility] Basophil percentageOrdered B y: Claude Nunez on 05-01-2023 Basophils/100 WBC (Bld) 0.6 % 0-1 [facility] Eosinophils/100 WBC (Bld) 1.9 % 0-5 [facility] Neutrophils (Bld) [#/Vol] 4.3 10*3/uL 2.0-7.7 [facility] Neutrophils/100 WBC (Bld) 62.1 % 47-70 [facility] WBC (Bld) [#/Vol] 6.8 10*3/uL 4.4-11.0 [facility] Blood erythrocytes count (nu mber/volume)Ordered By: Claude Nunez on 05-01-2023 RBC (Bld) [#/Vol] 4.42 10*6/uL 4.2-5.4 [facility] Blood hemoglobin measurement (mass/volume)Ordered By: Claude Nunez on 05-01-2023 Hemoglobin (Bld) [Mass/Vol] 14.4 g/dL 12.0-15.0 [facility] Blood lymphocytes/100 leukoc ytesOrdered By: Claude Nunez on 05-01-2023 Lymphocytes/100 WBC (Bld) 24.7 % 19-41 [facility] Blood monocytes/100 leukocyt esOrdered By: Claude Nunez on 05-01-2023 Monocytes/100 WBC (Bld) 10.1 % 0-10 [facility] Blood platelet mean volumeOr dered By: Claude Nunez on 05-01-2023 Platelet mean volume (Bld) [Entitic vol] 9.2 fL 6.2-12.0 [facility] Determination of erythrocyte mean corpuscular volume (MCV)Ordered By: Claude Nunez on 05-01-2023 MCV (RBC) [Entitic vol] 99.5 fL 81-99 [facility] Hematocrit Auto (Bld) [Volum e fraction]Ordered By: Claude Nunez on 05-01-2023 Hematocrit (Bld) [Volume fraction] 44.0 % 37-47 [facility] INR in Blood by Coagulation assayOrdered By: Claude Nunez on 05-01-2023 INR Coag (Bld) [Relative time] 0.9 {INR} [facility] Laboratory - CoagulationOrde red By: Claude Nunez on 05-01-2023 aPTT Coag (Bld) [Time] 31.5 s 24.1-36.2 [facility] PT Coag (PPP) [Time] 12.4 s 11.7-14.9 [facility] Laboratory - Hematology and Cell countsOrdered By: Claude Nunez on 05-01-2023 Erythrocyte distribution width (RBC) [Entitic vol] 47.4 fL 35.1-43.9 [facility] Erythrocyte distribution width (RBC) [Ratio] 12.8 % 11.6-14.6 [facility] Immature granulocytes/100 WBC (Bld) 0.600 % 0.0-0.9 [facility] Comment on above: IG% - Immature Granu locytes (promyelocytes, myelocytes and metamyelocytes) > 1% indicates that a LEFT SHIFT is Present. MCH (RBC) [Entitic mass] 32.6 pg 27.0-32.0 [facility] Nucleated RBC/100 WBC (Bld) [Ratio] 0 % 0-5 [facility] MCHC Auto (RBC) [Mass/Vol]Or dered By: Claude Nunez on 05-01-2023 MCHC (RBC) [Mass/Vol] 32.7 g/dL 32-36 [facility] Platelets bldOrdered By: Raciel Nunez on 05-01-2023 Platelets (Bld) [#/Vol] 240 10*3/uL 150-450 [facility] Absolute lymphocyte countOrd ered By: Shannan Waldrop on 01-29-2023 Lymphocytes Auto (Unsp spec) [#/Vol] 1.90 10*3/uL 0.83-4.51 [facility] Basophil percentageOrdered B y: Shannan Waldrop on 01-29-2023 Basophils/100 WBC (Bld) 0.6 % 0-1 [facility] Eosinophils/100 WBC (Bld) 1.9 % 0-5 [facility] Neutrophils (Bld) [#/Vol] 3.7 10*3/uL 2.0-7.7 [facility] Neutrophils/100 WBC (Bld) 57.2 % 47-70 [facility] WBC (Bld) [#/Vol] 6.4 10*3/uL 4.4-11.0 [facility] Blood erythrocytes count (nu mber/volume)Ordered By: Shannan Waldrop on 01-29-2023 RBC (Bld) [#/Vol] 4.19 10*6/uL 4.2-5.4 [facility] Blood hemoglobin measurement (mass/volume)Ordered By: Shannan Waldrop on 01-29-2023 Hemoglobin (Bld) [Mass/Vol] 13.8 g/dL 12.0-15.0 [facility] Blood lymphocytes/100 leukoc ytesOrdered By: Shannan Waldrop on 01-29-2023 Lymphocytes/100 WBC (Bld) 29.5 % 19-41 [facility] Blood monocytes/100 leukocyt esOrdered By: Shannan Waldrop on 01-29-2023 Monocytes/100 WBC (Bld) 10.0 % 0-10 [facility] Blood platelet mean volumeOr dered By: Shannan Waldrop on 01-29-2023 Platelet mean volume (Bld) [Entitic vol] 9.3 fL 6.2-12.0 [facility] Determination of erythrocyte mean corpuscular volume (MCV)Ordered By: Shannan Waldrop on 01-29-2023 MCV (RBC) [Entitic vol] 98.8 fL 81-99 [facility] Hematocrit Auto (Bld) [Volum e fraction]Ordered By: Shannan Waldrop on 01-29-2023 Hematocrit (Bld) [Volume fraction] 41.4 % 37-47 [facility] Iron measurement (mass/mass) Ordered By: Shannan Waldrop on 01-29-2023 Iron (Unsp spec) [Mass/Mass] 88 ug/dL 50-170 [facility] Laboratory - Hematology and Cell countsOrdered By: Shannan Waldrop on 01-29-2023 Erythrocyte distribution width (RBC) [Entitic vol] 48.9 fL 35.1-43.9 [facility] Erythrocyte distribution width (RBC) [Ratio] 13.4 % 11.6-14.6 [facility] Immature granulocytes/100 WBC (Bld) 0.800 % 0.0-0.9 [facility] Comment on above: IG% - Immature Granu locytes (promyelocytes, myelocytes and metamyelocytes) > 1% indicates that a LEFT SHIFT is Present. MCH (RBC) [Entitic mass] 32.9 pg 27.0-32.0 [facility] Nucleated RBC/100 WBC (Bld) [Ratio] 0 % 0-5 [facility] MCHC Auto (RBC) [Mass/Vol]Or dered By: Shannan Waldrop on 01-29-2023 MCHC (RBC) [Mass/Vol] 33.3 g/dL 32-36 [facility] No Panel InformationOrdered By: Shannan Waldrop on 01-29-2023 Total Iron Binding Capacity 334 ug/dL 250-450 [facility] Platelets bldOrdered By: Howard Waldrop on 01-29-2023 Platelets (Bld) [#/Vol] 241 10*3/uL 150-450 [facility] Serum or plasma ferritin bryce surement (mass/volume)Ordered By: Shannan Waldrop on 01-29-2023 Ferritin [Mass/Vol] 51 ng/mL 8-252 [facility] Serum or plasma iron saturat ion measurement (mass fraction)Ordered By: Shannan Waldrop on 01-29-2023 Iron saturation [Mass fraction] 26.3 % 15.0-55.0 [facility] Basophil percentageOrdered B y: Iris Clayton on 11-06-2022 Chloride [Moles/Vol] 107 mmol/L 98-107 [facility] Cholesterol [Mass/Vol] 194 mg/dL <200 [facility] Comment on above: <200 mg/dL Desirable 200-240 mg/dL Borderline >240 mg/dL High Risk Glucose [Mass/Vol] 119 mg/dL 74-106 [facility] Comment on above: Fasting Glucose resu lt from 100 to 125 mg/dL suggests IMPAIRED HOMEOSTASIS per A.D.A. criteria. Potassium [Moles/Vol] 4.1 mmol/L 3.5-5.1 [facility] Sodium [Moles/Vol] 140 mmol/L 136-145 [facility] Triglyceride [Mass/Vol] 260 mg/dL <199 [facility] Comment on above: The drugs N-Acetylcy steine and Metamizole may falsely depress this assay.Serum Triglycerides Reference Interval Normal <150 mg/dL Borderline high 150 - 199 mg/dL High 200 - 499 mg/dL Very High > or = 500 mg/dL Laboratory - Chemistry and C hemistry - challengeOrdered By: Iris Clayton on 11-06-2022 CO2 [Moles/Vol] 26.0 mmol/L 21.0-32.0 [facility] Urea nitrogen/Creatinine [Mass ratio] 25.2 mg/mg 10-20 [facility] No Panel InformationOrdered By: Iris Clayton on 11-06-2022 Estimated GFR (MDRD) Amer 129 mL/min >60 [facility] Comment on above: GFR Calc Estimated GFR (MDRD) Non-Af Amer 107 mL/min >60 [facility] Comment on above: Non- GFR Calc Serum or plasma calcium joaquin urement (mass/volume)Ordered By: Iris Clayton on 11-06-2022 Calcium [Mass/Vol] 9.3 mg/dL 8.5-10.1 [facility] Serum or plasma cholesterol in HDL measurement (mass/volume)Ordered By: Iris Clayton on 11-06-2022 Cholesterol in HDL [Mass/Vol] 39 mg/dL >40 [facility] Comment on above: The drugs N-Acetylcy steine and Metamizole may falsely depress this assay. Reference Range HDL <40 mg/dL Low HDL Cholesterol HDL >or= 60 mg/dL High HDL Cholesterol Serum or plasma cholesterol in VLDL measurement (mass/volume)Ordered By: Iris Clayton on 11-06-2022 Cholesterol in VLDL [Mass/Vol] 52 mg/dL 5-40 [facility] Serum or plasma creatinine m easurement (mass/volume)Ordered By: Iris Clayton on 11-06-2022 Creatinine [Mass/Vol] 0.60 mg/dL 0.55-1.02 [facility] Comment on above: The validity of the calculated GFR & GFRAA in patients over 70 years has not been determined. Clinical correlation is essential. Serum or plasma low density lipoprotein (LDL) cholesterol measurement (mass/volume)Ordered By: Irsi Clayton on 11-06-2022 Cholesterol in LDL [Mass/Vol] 103 mg/dL 0-130 [facility] Serum or plasma urea nitroge n measurement (mass/volume)Ordered By: Iris Clayton on 11-06-2022 Urea nitrogen [Mass/Vol] 15 mg/dL 7-18 [facility] Thin prep Papanicolaou smear with manual screeningOrdered By: Iris Clayton on 11-06-2022 Thin prep Papanicolaou smear with manual screening 7 5-15 [facility] Basophil percentageOrdered B y: Iris Clayton on 08-13-2022 Bilirubin [Mass/Vol] 0.40 mg/dL 0.20-1.00 [facility] Comment on above: For patients on eltr ombopag therapy, use of Dimension [employer] [facility] TBIL is not recommended. Chloride [Moles/Vol] 106 mmol/L 98-107 [facility] Glucose [Mass/Vol] 126 mg/dL 74-106 [facility] Comment on above: Fasting Glucose resu lt greater than or equal to 126 mg/dL suggests DIABETES MELLITUS per A.D.A. criteria. Potassium [Moles/Vol] 4.4 mmol/L 3.5-5.1 [facility] Protein [Mass/Vol] 6.7 g/dL 6.4-8.2 [facility] Sodium [Moles/Vol] 139 mmol/L 136-145 [facility] Laboratory - Chemistry and C hemistry - challengeOrdered By: Iris Clayton on 08-13-2022 ALP [Catalytic activity/Vol] 73 U/L 45-117 [facility] ALT [Catalytic activity/Vol] 29 U/L 13-56 [facility] CO2 [Moles/Vol] 28.0 mmol/L 21.0-32.0 [facility] Globulin (S) [Mass/Vol] 3.1 g/dL 2.2-4.2 [facility] Urea nitrogen/Creatinine [Mass ratio] 23.2 mg/mg 10-20 [facility] No Panel InformationOrdered By: Iris Clayton on 08-13-2022 Estimated GFR (MDRD) Amer 127 mL/min >60 [facility] Comment on above: GFR Calc Estimated GFR (MDRD) Non-Af Amer 105 mL/min >60 [facility] Comment on above: Non- GFR Calc Serum or plasma albumin joaquin urement (mass/volume)Ordered By: Iris Clayton on 08-13-2022 Albumin [Mass/Vol] 3.6 g/dL 3.2-5.0 [facility] Serum or plasma albumin/glob ulin mass ratioOrdered By: Iris Clayton on 08-13-2022 Albumin/Globulin [Mass ratio] 1.2 {ratio} 0.9-2.4 [facility] Serum or plasma calcium joaquin urement (mass/volume)Ordered By: Iris Clayton on 08-13-2022 Calcium [Mass/Vol] 9.2 mg/dL 8.5-10.1 [facility] Serum or plasma creatinine m easurement (mass/volume)Ordered By: Iris Clayton on 08-13-2022 Creatinine [Mass/Vol] 0.60 mg/dL 0.55-1.02 [facility] Comment on above: The validity of the calculated GFR & GFRAA in patients over 70 years has not been determined. Clinical correlation is essential. Serum or plasma urea nitroge n measurement (mass/volume)Ordered By: Iris Clayton on 08-13-2022 Urea nitrogen [Mass/Vol] 14 mg/dL 7-18 [facility] Thin prep Papanicolaou smear with manual screeningOrdered By: Iris Clayton on 08-13-2022 Thin prep Papanicolaou smear with manual screening 11 U/L 15-37 [facility] Thin prep Papanicolaou smear with manual screening 5 5-15 [facility] Culture, urineOrdered By: Robina Clayton on 07-31-2022 Bacteria identified Cx Nom (U) Presumptive E. coli [facility] Absolute lymphocyte countOrd ered By: Dr. Waldrop on 07-30-2022 Lymphocytes Auto (Unsp spec) [#/Vol] 1.97 10*3/uL 0.83-4.51 [facility] Basophil percentageOrdered B y: Dr. Waldrop on 07-30-2022 Basophils/100 WBC (Bld) 0.4 % 0-1 [facility] Eosinophils/100 WBC (Bld) 1.2 % 0-5 [facility] Neutrophils (Bld) [#/Vol] 5.9 10*3/uL 2.0-7.7 [facility] Neutrophils/100 WBC (Bld) 65.6 % 47-70 [facility] WBC (Bld) [#/Vol] 8.9 10*3/uL 4.4-11.0 [facility] Blood erythrocytes count (nu mber/volume)Ordered By: Dr. Waldrop on 07-30-2022 RBC (Bld) [#/Vol] 5.30 10*6/uL 4.2-5.4 [facility] Blood hemoglobin measurement (mass/volume)Ordered By: Dr. Waldrop on 07-30-2022 Hemoglobin (Bld) [Mass/Vol] 16.8 g/dL 12.0-15.0 [facility] Blood lymphocytes/100 leukoc ytesOrdered By: Dr. Waldrop on 07-30-2022 Lymphocytes/100 WBC (Bld) 22.0 % 19-41 [facility] Blood monocytes/100 leukocyt esOrdered By: Dr. Waldrop on 07-30-2022 Monocytes/100 WBC (Bld) 10.5 % 0-10 [facility] Blood platelet mean volumeOr dered By: Dr. Waldrop on 07-30-2022 Platelet mean volume (Bld) [Entitic vol] 9.3 fL 6.2-12.0 [facility] Determination of erythrocyte mean corpuscular volume (MCV)Ordered By: Dr. Waldrop on 07-30-2022 MCV (RBC) [Entitic vol] 96.0 fL 81-99 [facility] Hematocrit Auto (Bld) [Volum e fraction]Ordered By: Dr. Waldrop on 07-30-2022 Hematocrit (Bld) [Volume fraction] 50.9 % 37-47 [facility] Iron measurement (mass/mass) Ordered By: Dr. Waldrop on 07-30-2022 Iron (Unsp spec) [Mass/Mass] 89 ug/dL 50-170 [facility] Laboratory - Hematology and Cell countsOrdered By: Dr. Waldrop on 07-30-2022 Erythrocyte distribution width (RBC) [Entitic vol] 57.9 fL 35.1-43.9 [facility] Erythrocyte distribution width (RBC) [Ratio] 16.4 % 11.6-14.6 [facility] Immature granulocytes/100 WBC (Bld) 0.300 % 0.0-0.9 [facility] Comment on above: IG% - Immature Granu locytes (promyelocytes, myelocytes and metamyelocytes) > 1% indicates that a LEFT SHIFT is Present. MCH (RBC) [Entitic mass] 31.7 pg 27.0-32.0 [facility] Nucleated RBC/100 WBC (Bld) [Ratio] 0 % 0-5 [facility] MCHC Auto (RBC) [Mass/Vol]Or dered By: Dr. Waldrop on 07-30-2022 MCHC (RBC) [Mass/Vol] 33.0 g/dL 32-36 [facility] No Panel InformationOrdered By: Dr. Waldrop on 07-30-2022 Total Iron Binding Capacity 384 ug/dL 250-450 [facility] Platelets bldOrdered By: Dr. Waldrop on 07-30-2022 Platelets (Bld) [#/Vol] 225 10*3/uL 150-450 [facility] Serum or plasma ferritin bryce surement (mass/volume)Ordered By: Dr. Waldrop on 07-30-2022 Ferritin [Mass/Vol] 23 ng/mL 8-252 [facility] Serum or plasma iron saturat ion measurement (mass fraction)Ordered By: Dr. Waldrop on 07-30-2022 Iron saturation [Mass fraction] 23.2 % 15.0-55.0 [facility] CNOVon 05-23-2022 CNOV Normal [facility] CNOVon 05-07-2022 CNOV Normal [facility] Absolute lymphocyte counton 04-29-2022 Lymphocytes Auto (Unsp spec) [#/Vol] 1.23 10*3/uL 0.83-4.51 [facility] Work Phone: Basophil percentageon 2021 Basophils/100 WBC (Bld) 0.3 % 0-1 [facility] Work Phone: Eosinophils/100 WBC (Bld) 1.0 % 0-5 [facility] Work Phone: Neutrophils (Bld) [#/Vol] 4.8 10*3/uL 2.0-7.7 [facility] Work Phone: Neutrophils/100 WBC (Bld) 71.9 % 47-70 [facility] Work Phone: WBC (Bld) [#/Vol] 6.7 10*3/uL 4.4-11.0 [facility] Work Phone: Blood erythrocytes count (nu mber/volume)on 04-29-2022 RBC (Bld) [#/Vol] 4.27 10*6/uL 4.2-5.4 [facility] Work Phone: Blood hemoglobin measurement (mass/volume)on 04-29-2022 Hemoglobin (Bld) [Mass/Vol] 12.7 g/dL 12.0-15.0 [facility] Work Phone: Blood lymphocytes/100 leukoc yteson 04-29-2022 Lymphocytes/100 WBC (Bld) 18.3 % 19-41 [facility] Work Phone: Blood monocytes/100 leukocyt eson 04-29-2022 Monocytes/100 WBC (Bld) 8.2 % 0-10 [facility] Work Phone: Blood platelet mean volumeon 04-29-2022 Platelet mean volume (Bld) [Entitic vol] 9.2 fL 6.2-12.0 [facility] Work Phone: Determination of erythrocyte mean corpuscular volume (MCV)on 04-29-2022 MCV (RBC) [Entitic vol] 97.0 fL 81-99 [facility] Work Phone: Hematocrit Auto (Bld) [Volum e fraction]on 04-29-2022 Hematocrit (Bld) [Volume fraction] 41.4 % 37-47 [facility] Work Phone: Iron measurement (mass/mass) on 04-29-2022 Iron (Unsp spec) [Mass/Mass] 30 ug/dL 50-170 [facility] Work Phone: Laboratory - Hematology and Cell countsOrdered By: Dr. Waldrop on 04-29-2022 Anisocytosis Ql (Bld) RARE [facility] Laboratory - Hematology and Cell countson 04-29-2022 Erythrocyte distribution width (RBC) [Entitic vol] 65.7 fL 35.1-43.9 [facility] Work Phone: Erythrocyte distribution width (RBC) [Ratio] 18.3 % 11.6-14.6 [facility] Work Phone: Immature granulocytes/100 WBC (Bld) 0.300 % 0.0-0.9 [facility] Work Phone: Comment on above: IG% - Immature Granu locytes (promyelocytes, myelocytes and metamyelocytes) > 1% indicates that a LEFT SHIFT is Present. MCH (RBC) [Entitic mass] 29.7 pg 27.0-32.0 [facility] Work Phone: Nucleated RBC/100 WBC (Bld) [Ratio] 0 % 0-5 [facility] Work Phone: MCHC Auto (RBC) [Mass/Vol]on 04-29-2022 MCHC (RBC) [Mass/Vol] 30.7 g/dL 32-36 [facility] Work Phone: No Panel Informationon 04-29 Total Iron Binding Capacity 339 ug/dL 250-450 [facility] Work Phone: Platelets bldon 04-29-2022 Platelets (Bld) [#/Vol] 241 10*3/uL 150-450 [facility] Work Phone: Serum or plasma ferritin bryce surement (mass/volume)on 04-29-2022 Ferritin [Mass/Vol] 45 ng/mL 8-252 [facility] Work Phone: Serum or plasma iron saturat ion measurement (mass fraction)on 04-29-2022 Iron saturation [Mass fraction] 8.8 % 15.0-55.0 [facility] Work Phone: Absolute lymphocyte counton 04-23-2022 Lymphocytes Auto (Unsp spec) [#/Vol] 1.45 10*3/uL 0.83-4.51 [facility] Work Phone: Basophil percentageon 2021 Basophils/100 WBC (Bld) 0.2 % 0-1 [facility] Work Phone: [phone] Chloride [Moles/Vol] 110 mmol/L 98-107 [facility] Work Phone: [phone] Eosinophils/100 WBC (Bld) 1.6 % 0-5 [facility] Work Phone: Glucose [Mass/Vol] 103 mg/dL 74-106 [facility] Work Phone: [phone] Comment on above: Fasting Glucose resu lt from 100 to 125 mg/dL suggests IMPAIRED HOMEOSTASIS per A.D.A. criteria. Neutrophils (Bld) [#/Vol] 2.9 10*3/uL 2.0-7.7 [facility] Work Phone: Neutrophils/100 WBC (Bld) 59.0 % 47-70 [facility] Work Phone: Potassium [Moles/Vol] 3.9 mmol/L 3.5-5.1 [facility] Work Phone: Sodium [Moles/Vol] 143 mmol/L 136-145 [facility] Work Phone: WBC (Bld) [#/Vol] 5.0 10*3/uL 4.4-11.0 [facility] Work Phone: Blood erythrocytes count (nu mber/volume)on 04-23-2022 RBC (Bld) [#/Vol] 4.42 10*6/uL 4.2-5.4 [facility] Work Phone: Blood hemoglobin measurement (mass/volume)on 04-23-2022 Hemoglobin (Bld) [Mass/Vol] 13.2 g/dL 12.0-15.0 [facility] Work Phone: [phone] Blood lymphocytes/100 leukoc yteson 04-23-2022 Lymphocytes/100 WBC (Bld) 29.3 % 19-41 [facility] Work Phone: Blood monocytes/100 leukocyt eson 04-23-2022 Monocytes/100 WBC (Bld) 9.5 % 0-10 [facility] Work Phone: [phone] Blood platelet mean volumeon 04-23-2022 Platelet mean volume (Bld) [Entitic vol] 9.1 fL 6.2-12.0 [facility] Work Phone: Determination of erythrocyte mean corpuscular volume (MCV)on 04-23-2022 MCV (RBC) [Entitic vol] 97.7 fL 81-99 [facility] Work Phone: Hematocrit Auto (Bld) [Volum e fraction]on 04-23-2022 Hematocrit (Bld) [Volume fraction] 43.2 % 37-47 [facility] Work Phone: Laboratory - Chemistry and C hemistry - challengeon 04-23-2022 CO2 [Moles/Vol] 27.0 mmol/L 21.0-32.0 [facility] Work Phone: Urea nitrogen/Creatinine [Mass ratio] 28.1 mg/mg 10-20 [facility] Work Phone: Laboratory - Hematology and Cell countson 04-23-2022 Anisocytosis Ql (Bld) 1+ [facility] Work Phone: Erythrocyte distribution width (RBC) [Entitic vol] 67.4 fL 35.1-43.9 [facility] Work Phone: Erythrocyte distribution width (RBC) [Ratio] 19.0 % 11.6-14.6 [facility] Work Phone: Immature granulocytes/100 WBC (Bld) 0.400 % 0.0-0.9 [facility] Work Phone: Comment on above: IG% - Immature Granu locytes (promyelocytes, myelocytes and metamyelocytes) > 1% indicates that a LEFT SHIFT is Present. MCH (RBC) [Entitic mass] 29.9 pg 27.0-32.0 [facility] Work Phone: Nucleated RBC/100 WBC (Bld) [Ratio] 0 % 0-5 [facility] Work Phone: MCHC Auto (RBC) [Mass/Vol]on 04-23-2022 MCHC (RBC) [Mass/Vol] 30.6 g/dL 32-36 [facility] Work Phone: No Panel Informationon 04-23 Estimated Creatinine Clearance Calc 43.18 ml/min [facility] Work Phone: Estimated GFR (MDRD) Amer 147 mL/min >60 [facility] Work Phone: Comment on above: GFR Calc Estimated GFR (MDRD) Non-Af Amer 121 mL/min >60 [facility] Work Phone: Comment on above: Non- GFR Calc Platelets bldon 04-23-2022 Platelets (Bld) [#/Vol] 252 10*3/uL 150-450 [facility] Work Phone: Serum or plasma calcium joaquin urement (mass/volume)on 04-23-2022 Calcium [Mass/Vol] 9.3 mg/dL 8.5-10.1 [facility] Work Phone: Serum or plasma creatinine m easurement (mass/volume)on 04-23-2022 Creatinine [Mass/Vol] 0.53 mg/dL 0.55-1.02 [facility] Work Phone: Comment on above: The validity of the calculated GFR & GFRAA in patients over 70 years has not been determined. Clinical correlation is essential. Serum or plasma urea nitroge n measurement (mass/volume)on 04-23-2022 Urea nitrogen [Mass/Vol] 15 mg/dL 7-18 [facility] Work Phone: Thin prep Papanicolaou smear with manual screeningon 04-23-2022 Thin prep Papanicolaou smear with manual screening 6 5-15 [facility] Work Phone: CNOVon 04-18-2022 CNOV Normal [facility] CT BRAIN WO IVCONon 04-18-[address] BRAIN WO IVCON Normal [facility] Absolute lymphocyte counton 04-17-2022 Lymphocytes Auto (Unsp spec) [#/Vol] 2.16 10*3/uL 0.83-4.51 [facility] Work Phone: Basophil percentageon 2021 Basophils/100 WBC (Bld) 0.6 % 0-1 [facility] Work Phone: Eosinophils/100 WBC (Bld) 1.3 % 0-5 [facility] Work Phone: Neutrophils (Bld) [#/Vol] 3.5 10*3/uL 2.0-7.7 [facility] Work Phone: Neutrophils/100 WBC (Bld) 55.8 % 47-70 [facility] Work Phone: WBC (Bld) [#/Vol] 6.3 10*3/uL 4.4-11.0 [facility] Work Phone: Blood erythrocytes count (nu mber/volume)on 04-17-2022 RBC (Bld) [#/Vol] 4.03 10*6/uL 4.2-5.4 [facility] Work Phone: Blood hemoglobin measurement (mass/volume)on 04-17-2022 Hemoglobin (Bld) [Mass/Vol] 12.1 g/dL 12.0-15.0 [facility] Work Phone: Blood lymphocytes/100 leukoc yteson 04-17-2022 Lymphocytes/100 WBC (Bld) 34.1 % 19-41 [facility] Work Phone: Blood manual differential co mment interpretation (narrative result)on 04-17-2022 Manual differential comment Kuldip (Bld) [Interp] SCANNED [facility] Work Phone: Blood monocytes/100 leukocyt eson 04-17-2022 Monocytes/100 WBC (Bld) 7.9 % 0-10 [facility] Work Phone: Blood platelet adequacy dete ction by light microscopyon 04-17-2022 Platelets LM Ql (Bld) ADEQUATE [facility]Q [facility] Work Phone: Blood platelet mean volumeon 04-17-2022 Platelet mean volume (Bld) [Entitic vol] 9.9 fL 6.2-12.0 [facility] Work Phone: Blood platelet morphology de termination (nominal result)on 04-17-2022 Platelet morphology finding Nom (Bld) CLUMPED [facility] Work Phone: [phone] Determination of erythrocyte mean corpuscular volume (MCV)on 04-17-2022 MCV (RBC) [Entitic vol] 100.5 fL 81-99 [facility] Work Phone: Hematocrit Auto (Bld) [Volum e fraction]on 04-17-2022 Hematocrit (Bld) [Volume fraction] 40.5 % 37-47 [facility] Work Phone: Laboratory - Hematology and Cell countson 04-17-2022 Anisocytosis Ql (Bld) 1+ [facility] Work Phone: [phone] Erythrocyte distribution width (RBC) [Entitic vol] 69.0 fL 35.1-43.9 [facility] Work Phone: Erythrocyte distribution width (RBC) [Ratio] 18.4 % 11.6-14.6 [facility] Work Phone: Immature granulocytes/100 WBC (Bld) 0.300 % 0.0-0.9 [facility] Work Phone: Comment on above: IG% - Immature Granu locytes (promyelocytes, myelocytes and metamyelocytes) > 1% indicates that a LEFT SHIFT is Present. MCH (RBC) [Entitic mass] 30.0 pg 27.0-32.0 [facility] Work Phone: Nucleated RBC/100 WBC (Bld) [Ratio] 0 % 0-5 [facility] Work Phone: MCHC Auto (RBC) [Mass/Vol]on 04-17-2022 MCHC (RBC) [Mass/Vol] 29.9 g/dL 32-36 [facility] Work Phone: Macrocytes detectionon 04-17 Macrocytes Ql (Bld) 1+ [facility] Work Phone: Platelets bldon 04-17-2022 Platelets (Bld) [#/Vol] 274 10*3/uL 150-450 [facility] Work Phone: Absolute lymphocyte counton 04-16-2022 Lymphocytes Auto (Unsp spec) [#/Vol] 2.31 10*3/uL 0.83-4.51 [facility] Work Phone: Basophil percentageon 2021 Basophils/100 WBC (Bld) 0.9 % 0-1 [facility] Work Phone: Eosinophils/100 WBC (Bld) 1.6 % 0-5 [facility] Work Phone: Neutrophils (Bld) [#/Vol] 3.8 10*3/uL 2.0-7.7 [facility] Work Phone: Neutrophils/100 WBC (Bld) 55.2 % 47-70 [facility] Work Phone: WBC (Bld) [#/Vol] 6.9 10*3/uL 4.4-11.0 [facility] Work Phone: [phone] Blood erythrocytes count (nu mber/volume)on 04-16-2022 RBC (Bld) [#/Vol] 3.84 10*6/uL 4.2-5.4 [facility] Work Phone: [phone] Blood hemoglobin measurement (mass/volume)on 04-16-2022 Hemoglobin (Bld) [Mass/Vol] 11.5 g/dL 12.0-15.0 [facility] Work Phone: Blood lymphocytes/100 leukoc yteson 04-16-2022 Lymphocytes/100 WBC (Bld) 33.4 % 19-41 [facility] Work Phone: Blood monocytes/100 leukocyt eson 04-16-2022 Monocytes/100 WBC (Bld) 8.5 % 0-10 [facility] Work Phone: Blood platelet mean volumeon 04-16-2022 Platelet mean volume (Bld) [Entitic vol] 8.7 fL 6.2-12.0 [facility] Work Phone: [phone] Determination of erythrocyte mean corpuscular volume (MCV)on 04-16-2022 MCV (RBC) [Entitic vol] 97.7 fL 81-99 [facility] Work Phone: Hematocrit Auto (Bld) [Volum e fraction]on 04-16-2022 Hematocrit (Bld) [Volume fraction] 37.5 % 37-47 [facility] Work Phone: Laboratory - Hematology and Cell countson 04-16-2022 Erythrocyte distribution width (RBC) [Entitic vol] 63.8 fL 35.1-43.9 [facility] Work Phone: Erythrocyte distribution width (RBC) [Ratio] 17.9 % 11.6-14.6 [facility] Work Phone: Immature granulocytes/100 WBC (Bld) 0.400 % 0.0-0.9 [facility] Work Phone: Comment on above: IG% - Immature Granu locytes (promyelocytes, myelocytes and metamyelocytes) > 1% indicates that a LEFT SHIFT is Present. MCH (RBC) [Entitic mass] 29.9 pg 27.0-32.0 [facility] Work Phone: Nucleated RBC/100 WBC (Bld) [Ratio] 0 % 0-5 [facility] Work Phone: MCHC Auto (RBC) [Mass/Vol]on 04-16-2022 MCHC (RBC) [Mass/Vol] 30.7 g/dL 32-36 [facility] Work Phone: [phone] Platelets bldon 04-16-2022 Platelets (Bld) [#/Vol] 360 10*3/uL 150-450 [facility] Work Phone: Basophil percentageon 2021 Chloride [Moles/Vol] 105 mmol/L 98-107 [facility] Work Phone: Glucose [Mass/Vol] 97 mg/dL 74-106 [facility] Work Phone: [phone] Potassium [Moles/Vol] 3.9 mmol/L 3.5-5.1 [facility] Work Phone: Sodium [Moles/Vol] 138 mmol/L 136-145 [facility] Work Phone: Laboratory - Chemistry and C hemistry - challengeon 04-15-2022 CO2 [Moles/Vol] 25.0 mmol/L 21.0-32.0 [facility] Work Phone: Urea nitrogen/Creatinine [Mass ratio] 41.9 mg/mg 10-20 [facility] Work Phone: No Panel Informationon 04-15 Estimated Creatinine Clearance Calc 43.18 ml/min [facility] Work Phone: Estimated GFR (MDRD) Amer 188 mL/min >60 [facility] Work Phone: Comment on above: GFR Calc Estimated GFR (MDRD) Non-Af Amer 156 mL/min >60 [facility] Work Phone: Comment on above: Non- GFR Calc Serum or plasma calcium joaquin urement (mass/volume)on 04-15-2022 Calcium [Mass/Vol] 8.6 mg/dL 8.5-10.1 [facility] Work Phone: Serum or plasma creatinine m easurement (mass/volume)on 04-15-2022 Creatinine [Mass/Vol] 0.43 mg/dL 0.55-1.02 [facility] Work Phone: Comment on above: The validity of the calculated GFR & GFRAA in patients over 70 years has not been determined. Clinical correlation is essential. Serum or plasma urea nitroge n measurement (mass/volume)on 04-15-2022 Urea nitrogen [Mass/Vol] 18 mg/dL 7-18 [facility] Work Phone: Thin prep Papanicolaou smear with manual screeningon 04-15-2022 Thin prep Papanicolaou smear with manual screening 8 5-15 [facility] Work Phone: Glucose Glucometer (BldC) [M ass/Vol]on 04-11-2022 Glucose [Mass/Vol] 99 mg/dL 74-106 [facility] Work Phone: Comment on above: MANAGEMENT OF PATIEN T CARE PER NURSING PROTOCOL CNPNon 04-10-2022 CNPN Normal [facility] Basophil percentageon 2021 Basophil percentage >100 SEEN /hpf 0-5 [facility] Work Phone: Bilirubin Test strip Ql (U)o n 04-09-2022 Bilirubin Ql (U) Negative Negative [facility] Work Phone: Ketones Test strip Ql (U)on 04-09-2022 Ketones Ql (U) Negative Negative [facility] Work Phone: Mucus LM Ql (Urine sed)on Mucus Ql (Urine sed) 0 SEEN /hpf [facility] Work Phone: Nitrite Test strip Ql (U)on 04-09-2022 Nitrite Ql (U) Positive Negative [facility] Work Phone: Protein Test strip Ql (U)on 04-09-2022 Protein Ql (U) 15 mg/dl Negative [facility] Work Phone: Squamous epithelial cells de tection in urine sediment by light microscopyon 04-09-2022 Epithelial cells.squamous LM Ql (Urine sed) 0 SEEN /hpf 5-10 [facility] Work Phone: Urine blood detectionon 03-19 RBC Ql (U) 10 /ul Negative [facility] Work Phone: RBC Ql (U) 5-10 SEEN /hpf 0-5 [facility] Work Phone: Urine clarityon 04-09-2022 Clarity (U) Sl. Cloudy Clear [facility] Work Phone: Urine color determinationon 04-09-2022 Color (U) Yellow Yellow [facility] Work Phone: Urine glucose detectionon Glucose Ql (U) 1000 mg/dl Normal [facility] Work Phone: Urine leukocyte esterase det ection by dipstickon 04-09-2022 Leukocyte esterase Test strip Ql (U) 500 /ul Negative [facility] Work Phone: Urine pHon 04-09-2022 pH (U) 6.0 [pH] 5.0 - 8.0 [facility] Work Phone: Urine sediment bacteria coun t by microscopy (number/high power field)on 04-09-2022 Bacteria LM.HPF (Urine sed) [#/Area] 2 /[HPF] None Seen [facility] Work Phone: Urine sediment leukocyte susan t count by microscopy (number/low power field)on 04-09-2022 WBC casts LM.LPF (Urine sed) [#/Area] 0-5 SEEN /lpf None Seen [facility] Work Phone: Urine specific gravity measu rementon 04-09-2022 Specific gravity (U) [Rel density] 1.020 1.002-1.030 [facility] Work Phone: Urobilinogen Auto test strip Ql (U)on 04-09-2022 Urobilinogen Ql (U) Normal mg/dl Normal [facility] Work Phone: Basophil percentageon 2021 Basophil percentage 2.9 mg/dL 2.5-4.9 [facility] Work Phone: Bilirubin [Mass/Vol] 0.40 mg/dL 0.20-1.00 [facility] Work Phone: Comment on above: For patients on eltr ombopag therapy, use of Dimension [employer] [facility] TBIL is not recommended. Protein [Mass/Vol] 6.7 g/dL 6.4-8.2 [facility] Work Phone: Iron measurement (mass/mass) on 04-06-2022 Iron (Unsp spec) [Mass/Mass] 42 ug/dL 50-170 [facility] Work Phone: Laboratory - Chemistry and C hemistry - challengeon 04-06-2022 ALP [Catalytic activity/Vol] 96 U/L 45-117 [facility] Work Phone: ALT [Catalytic activity/Vol] 25 U/L 13-56 [facility] Work Phone: Globulin (S) [Mass/Vol] 4.1 g/dL 2.2-4.2 [facility] Work Phone: Magnesium [Mass/Vol] 2.0 mg/dL 1.6-2.[address] [facility] Work Phone: No Panel Informationon 04-06 Total Iron Binding Capacity 270 ug/dL 250-450 [facility] Work Phone: Serum or plasma albumin joaquin urement (mass/volume)on 04-06-2022 Albumin [Mass/Vol] 2.6 g/dL 3.2-5.0 [facility] Work Phone: Serum or plasma albumin/glob ulin mass ratioon 04-06-2022 Albumin/Globulin [Mass ratio] 0.6 {ratio} 0.9-2.4 [facility] Work Phone: Serum or plasma ferritin bryce surement (mass/volume)on 04-06-2022 Ferritin [Mass/Vol] 93 ng/mL 8-252 [facility] Work Phone: Serum or plasma iron saturat ion measurement (mass fraction)on 04-06-2022 Iron saturation [Mass fraction] 15.6 % 15.0-55.0 [facility] Work Phone: Thin prep Papanicolaou smear with manual screeningon 04-06-2022 Thin prep Papanicolaou smear with manual screening 12 U/L 15-37 [facility] Work Phone: Whole blood hemoglobin A1c/t otal hemoglobin ratio (mass fraction)on 04-06-2022 HbA1c (Bld) [Mass fraction] 5.3 % 3.8-5.6 [facility] Work Phone: Comment on above: Normal < 5.7 % Predi abetic 5.7 - 6.4 % Diabetic >or= 6.5 % Please note range changes. CASE MANAGEMon 04-05-2022 CASE MANAGEM Normal [facility] CASE MANAGEM Normal [facility] CNDSon 04-05-2022 CNDS Normal [facility] NUTRITIONon 04-05-2022 NUTRITION Normal [facility] THERAPY NTon 04-05-2022 THERAPY NT Normal [facility] ALLIED HEALTHon 04-04-2022 ALLIED HEALTH Normal [facility] CONSULTon 04-04-2022 CONSULT Normal [facility] THERAPY NTon 04-04-2022 THERAPY NT Normal [facility] XR HUMERUS 2V AP/LAT RTon XR HUMERUS 2V AP/LAT RT Normal A [facility] CBC W Auto Differential pane l (Bld)on 04-03-2022 Basophils (Bld) [#/Vol] 0.03 10*3/uL Normal <0.11 [facility] Comment on above: Order Comment: Speci men Type: BLOOD SPECIMENOrdering Facility: [facility] Address: [address] [place] [address] Performed By: #### 5 7021-8 ####[facility]ORYCLIA [id number] [place] [address] [place] Basophils/100 WBC (Bld) 0.4 % Normal A [facility] Comment on above: Order Comment: Speci men Type: BLOOD SPECIMENOrdering Facility: [facility] Address: [address] [place] [address] Performed By: #### 5 7021-8 ####[facility]ATORYCLIA [id number] [place] [address] [place] Differential cell count method Nom (Bld) Auto Normal [facility] Comment on above: Order Comment: Speci men Type: BLOOD SPECIMENOrdering Facility: [facility] Address: [address] [place] [address] Performed By: #### 5 7021-8 ####[facility]ORATORYCLIA [id number] [place] [address] [place] Eosinophils (Bld) [#/Vol] 0.08 10*3/uL Normal <0.46 [facility] Comment on above: Order Comment: Speci men Type: BLOOD SPECIMENOrdering Facility: [facility] Address: [address] [place] [address] Performed By: #### 5 7021-8 ####[facility]ATORYCLIA [id number] [address] Eosinophils/100 WBC (Bld) 1.0 % Normal [facility] Comment on above: Order Comment: Speci men Type: BLOOD SPECIMENOrdering Facility: [facility] Address: [address] [place] [address] Performed By: #### 5 7021-8 ####[facility]ORYCLIA [id number] [address] Erythrocyte distribution width (RBC) [Ratio] 18.5 % High 11.5-15.0 [facility] Comment on above: Order Comment: Speci men Type: BLOOD SPECIMENOrdering Facility: [facility] Address: [address] [place] [address] Performed By: #### 5 7021-8 ####[facility]ORYCLIA [id number] [address] Hematocrit (Bld) [Volume fraction] 32.8 % Low 36.0-46.0 [facility] Comment on above: Order Comment: Speci men Type: BLOOD SPECIMENOrdering Facility: [facility] Address: [address] [place] [address] Performed By: #### 5 7021-8 ####[facility]ORYCLIA [id number] [address] [place] Hemoglobin (Bld) [Mass/Vol] 10.2 g/dL Low 11.5-15.5 [facility] Comment on above: Order Comment: Speci men Type: BLOOD SPECIMENOrdering Facility: [facility] Address: [address] [place] [address] Performed By: #### 5 7021-8 ####[facility]ORYCLIA [id number] [address] IMMATURE GRAN % 0.4 % Normal [facility] Comment on above: Order Comment: Speci men Type: BLOOD SPECIMENOrdering Facility: [facility] Address: [address] [place] [address] Performed By: #### 5 7021-8 ####[facility]ORYCLIA [id number] [address] IMMATURE GRAN ABS 0.03 k/uL Normal <0.10 [facility] Comment on above: Order Comment: Speci men Type: BLOOD SPECIMENOrdering Facility: [facility] Address: [address] [place] [address] Performed By: #### 5 7021-8 ####[facility]ATORYCLIA [id number] [address] Lymphocytes (Bld) [#/Vol] 1.51 10*3/uL Normal 1.00-4.0 0 [facility] Comment on above: Order Comment: Speci men Type: BLOOD SPECIMENOrdering Facility: [facility] Address: [address] [place] [address] Performed By: #### 5 7021-8 ####[facility]ATORYCLIA [id number] [address] Lymphocytes/100 WBC (Bld) 18.2 % Normal [facility] Comment on above: Order Comment: Speci men Type: BLOOD SPECIMENOrdering Facility: [facility] Address: [address] [place] [address] Performed By: #### 5 7021-8 ####[facility]ORYCLIA [id number] [address] MCH (RBC) [Entitic mass] 29.7 pg Normal 26.0-34.0 [facility] Comment on above: Order Comment: Speci men Type: BLOOD SPECIMENOrdering Facility: [facility] Address: [address] [place] [address] Performed By: #### 5 7021-8 ####[facility]OR[facility]ORYCLIA [id number] [address] MCHC (RBC) [Mass/Vol] 31.1 g/dL Normal 30.5-36.0 [facility] Comment on above: Order Comment: Speci men Type: BLOOD SPECIMENOrdering Facility: [facility] Address: [address] [place] [address] Performed By: #### 5 7021-8 ####[facility]ORYCLIA [id number] [address] MCV (RBC) [Entitic vol] 95.6 fL Normal 80.0-100.0 A [facility] Comment on above: Order Comment: Speci men Type: BLOOD SPECIMENOrdering Facility: [facility] Address: [address] [place] [address] Performed By: #### 5 7021-8 ####[facility]ATORYCLIA [id number] [address] [place] Monocytes (Bld) [#/Vol] 0.99 10*3/uL High <0.87 [facility] Comment on above: Order Comment: Speci men Type: BLOOD SPECIMENOrdering Facility: [facility] Address: [address] [place] [address] Performed By: #### 5 7021-8 ####[facility]ORYCLIA [id number] [address] Monocytes/100 WBC (Bld) 11.9 % Normal A [facility] [facility] Comment on above: Order Comment: Speci men Type: BLOOD SPECIMENOrdering Facility: [facility] Address: [address] [place] [address] Performed By: #### 5 7021-8 ####[facility]ATORYCLIA [id number] [address] [place] Neutrophils (Bld) [#/Vol] 5.66 10*3/uL Normal 1.45-7.5 0 [facility] Comment on above: Order Comment: Speci men Type: BLOOD SPECIMENOrdering Facility: [facility] Address: [address] [place] [address] Performed By: #### 5 7021-8 ####[facility]ATORYCLIA [id number] [address] Neutrophils/100 WBC (Bld) 68.1 % Normal [facility] Comment on above: Order Comment: Speci men Type: BLOOD SPECIMENOrdering Facility: [facility] Address: [address] [address] Performed By: #### 5 7021-8 ####[facility]ATORYCLIA [id number] [address] [place] Nucleated RBC (Bld) [#/Vol] 10*3/uL Normal <0.01 [facility] Comment on above: Order Comment: Speci men Type: BLOOD SPECIMENOrdering Facility: [facility] Address: [address] [place] [address] Performed By: #### 5 7021-8 ####[facility]ORYCLIA [id number] [address] Nucleated RBC/100 WBC (Bld) [Ratio] 0.0 /100 WBC Normal [facility] Comment on above: Order Comment: Speci men Type: BLOOD SPECIMENOrdering Facility: [facility] Address: [address] [place], [place] [address] Performed By: #### 5 7021-8 ####[facility]ATORYCLIA [id number] [address] [place] Platelet mean volume (Bld) [Entitic vol] 9.6 fL Normal 9.0-12.7 [facility] Comment on above: Order Comment: Speci men Type: BLOOD SPECIMENOrdering Facility: [facility] Address: [address] Performed By: #### 5 7021-8 ####[facility]ATORYCLIA [id number] [address] [place] Platelets (Bld) [#/Vol] 396 10*3/uL Normal 150-400 [facility] Comment on above: Order Comment: Speci men Type: BLOOD SPECIMENOrdering Facility: [facility] Address: [address] [place], [place] [address] Performed By: #### 5 7021-8 ####[facility]ATORYCLIA [id number] [address] RBC (Bld) [#/Vol] 3.43 10*6/uL Low 3.90-5.20 [facility] Comment on above: Order Comment: Speci men Type: BLOOD SPECIMENOrdering Facility: [facility] Address: [address] [place] [address] Performed By: #### 5 7021-8 ####[facility]ORYCLIA [id number] [address] WBC (Bld) [#/Vol] 8.30 10*3/uL Normal 3.70-11.00 [facility] Comment on above: Order Comment: Speci men Type: BLOOD SPECIMENOrdering Facility: [facility] Address: [address] [place] [address] Performed By: #### 5 7021-8 ####[facility]ORYCLIA [id number] [address] Comprehensive metabolic 2000 panelon 04-03-2022 Albumin [Mass/Vol] 3.5 g/dL Low 3.9-4.9 [facility] Comment on above: Order Comment: Speci men Type: BLOOD SPECIMENOrdering Facility: [facility] Address: [address] [place] [address] Performed By: #### 2 4323-8 ####[facility]ORYCLIA [id number] [address] ALP [Catalytic activity/Vol] 77 U/L Normal 34-123 [facility] Comment on above: Order Comment: Speci men Type: BLOOD SPECIMENOrdering Facility: [facility] Address: [address] [place] [address] Performed By: #### 2 4323-8 ####[facility]ORYCLIA [id number] [address] ALT With P-5'-P [Catalytic activity/Vol] 22 U/L Normal 7-38 [facility] Comment on above: Order Comment: Speci men Type: BLOOD SPECIMENOrdering Facility: [facility] Address: [address] [place] [address] Performed By: #### 2 4323-8 ####[facility]ATORYCLIA [id number] [place] [address] [place] Anion gap [Moles/Vol] 11 mmol/L Normal 9-18 [facility] Comment on above: Order Comment: Speci men Type: BLOOD SPECIMENOrdering Facility: [facility] Address: [address] [place] [address] Performed By: #### 2 4323-8 ####[facility]ORYCLIA [id number] [address] [place] AST With P-5'-P [Catalytic activity/Vol] Normal [facility] Comment on above: Order Comment: Speci men Type: BLOOD SPECIMENOrdering Facility: [facility] Address: [address] [place] [address] Result Comment: Unab le to assay due to interference from hemolysis. Suggest reorder as clinically indicated. Performed By: #### 2 4323-8 ####[facility]ATORYCLIA [id number] [place] [address] [place] Bilirubin [Mass/Vol] 0.4 mg/dL Normal 0.2-1.3 [facility] Comment on above: Order Comment: Speci men Type: BLOOD SPECIMENOrdering Facility: [facility] Address: [address] [place] [address] Performed By: #### 2 4323-8 ####[facility]ORYCLIA [id number] [address] [place] Calcium [Mass/Vol] 9.4 mg/dL Normal 8.5-10.2 [facility] Comment on above: Order Comment: Speci men Type: BLOOD SPECIMENOrdering Facility: [facility] Address: [address] [place] [address] Performed By: #### 2 4323-8 ####[facility]ORYCLIA [id number] [address] [place] Chloride [Moles/Vol] 107 mmol/L High 97-105 [facility] Comment on above: Order Comment: Speci men Type: BLOOD SPECIMENOrdering Facility: [facility] Address: [address] [place] [address] Performed By: #### 2 4323-8 ####[facility]ORYCLIA [id number] [address] CO2 [Moles/Vol] 27 mmol/L Normal 22-30 [facility] Comment on above: Order Comment: Speci men Type: BLOOD SPECIMENOrdering Facility: [facility] Address: [address] [place] [address] Performed By: #### 2 4323-8 ####[facility]ATORYCLIA [id number] [address] Creatinine [Mass/Vol] 0.36 mg/dL Low 0.58-0.96 [facility] Comment on above: Order Comment: Speci men Type: BLOOD SPECIMENOrdering Facility: [facility] Address: [address] [place] [address] Performed By: #### 2 4323-8 ####[facility]ATORYCLIA [id number] [address] ESTIMATED GLOMERULAR FILTRATION RATE 111 mL/min/1.73m??? Normal >=60 [facility] Comment on above: Order Comment: Speci men Type: BLOOD SPECIMENOrdering Facility: [facility] Address: [address] [place] [address] Result Comment: Ameena mated Glomerular Filtration Rate (eGFR) is calculated using the 2020 CKD-EPI creatinine equation. This equation utilizes serum creatinine, sex, and age as parameters. The creatinine assay has traceable calibration to isotope dilution-mass spectrometry. Refer to KDIGO guidelines for clinical interpretation. In patients with unstable renal function, e.g. those with acute kidney injury, the eGFR may not accurately reflect actual GFR. Performed By: #### 2 4323-8 ####[facility]ATORYCLIA [id number] [place] [address] [place] Glucose [Mass/Vol] 138 mg/dL High 74-99 [facility] Comment on above: Order Comment: Speci men Type: BLOOD SPECIMENOrdering Facility: [facility] Address: [address] [place] [address] Result Comment: The [place] [employer] (ADA) provides guidance for cutoff values for fasting glucose and random glucose. The ADA defines fasting as no caloric intake for at least 8 hours. Fasting plasma glucose results between 100 to 125 mg/dL indicate increased risk for diabetes (prediabetes).Fasting plasma glucose results greater than or equal to 126 mg/dL meet the criteria for diagnosis of diabetes. In the absence of unequivocal hyperglycemia, results should be confirmed by repeat testing. In a patient with classic symptoms of hyperglycemia or hyperglycemic crisis, random plasma glucose results greater than or equal to 200 mg/dL meet the criteria for diagnosis of diabetes.Reference: Standards of Medical Care in Diabetes 2016, [place] [employer]. Diabetes Care. 2016.39(Suppl 1). Performed By: #### 2 4323-8 ####[facility]ATORYCLIA [id number] [place] [address] [place] Potassium [Moles/Vol] 4.2 mmol/L Normal 3.7-5.1 [facility] Comment on above: Order Comment: Speci men Type: BLOOD SPECIMENOrdering Facility: [facility] Address: [address] [place] [address] Performed By: #### 2 4323-8 ####[facility]ATORYCLIA [id number] [place] [address] [place] Protein [Mass/Vol] 6.5 g/dL Normal 6.3-8.0 [facility] Comment on above: Order Comment: Speci men Type: BLOOD SPECIMENOrdering Facility: [facility] Address: [address] [place] [address] Performed By: #### 2 4323-8 ####[facility]ATORYCLIA [id number] [address] [place] Sodium [Moles/Vol] 145 mmol/L High 136-144 [facility] Comment on above: Order Comment: Speci men Type: BLOOD SPECIMENOrdering Facility: [facility] Address: [address] [place] [address] Performed By: #### 2 4323-8 ####[facility]ATORYCLIA [id number] [place] [address] [place] Urea nitrogen [Mass/Vol] 16 mg/dL Normal 7- [facility] Comment on above: Order Comment: Speci men Type: BLOOD SPECIMENOrdering Facility: [facility] Address: [address] [place] [address] Performed By: #### 2 4323-8 ####[facility]ATORYCLIA [id number] [place] [address] [place] THERAPY NTon 04-03-2022 THERAPY NT Normal [facility] THERAPY NT Normal [facility] THERAPY NT Normal [facility] US DVT UPPER BILon US DVT UPPER JOSE Normal [facility] CASE MANAGEMon 04-02-2022 CASE MANAGEM Normal [facility] CBC W Auto Differential pane l (Bld)on 04-02-2022 Basophils (Bld) [#/Vol] 0.04 10*3/uL Normal <0.11 [facility] Comment on above: Order Comment: Speci men Type: BLOOD SPECIMENOrdering Facility: [facility] Address: [address] [place] [address] Performed By: #### 5 7021-8 ####[facility]ORYCLIA [id number] [address] [place] Basophils/100 WBC (Bld) 0.5 % Normal A [facility] Comment on above: Order Comment: Speci men Type: BLOOD SPECIMENOrdering Facility: [facility] Address: [address] [place] [address] Performed By: #### 5 7021-8 ####[facility]ATORYCLIA [id number] [address] Differential cell count method Nom (Bld) Auto Normal [facility] Comment on above: Order Comment: Speci men Type: BLOOD SPECIMENOrdering Facility: [facility] Address: [address] [place] [address] Performed By: #### 5 7021-8 ####[facility]ORYCLIA [id number] [address] [place] Eosinophils (Bld) [#/Vol] 0.06 10*3/uL Normal <0.46 [facility] Comment on above: Order Comment: Speci men Type: BLOOD SPECIMENOrdering Facility: [facility] Address: [address] [place] [address] Performed By: #### 5 7021-8 ####[facility]ORYCLIA [id number] [address] Eosinophils/100 WBC (Bld) 0.8 % Normal [facility] Comment on above: Order Comment: Speci men Type: BLOOD SPECIMENOrdering Facility: [facility] Address: [address] [place] [address] Performed By: #### 5 7021-8 ####[facility]ORYCLIA [id number] [address] Erythrocyte distribution width (RBC) [Ratio] 19.0 % High 11.5-15.0 [facility] Comment on above: Order Comment: Speci men Type: BLOOD SPECIMENOrdering Facility: [facility] Address: [address] [place] [address] Performed By: #### 5 7021-8 ####[facility]ORYCLIA [id number] [address] Hematocrit (Bld) [Volume fraction] 32.8 % Low 36.0-46.0 [facility] Comment on above: Order Comment: Speci men Type: BLOOD SPECIMENOrdering Facility: [facility] Address: [address] [place] [address] Performed By: #### 5 7021-8 ####[facility]ATORYCLIA [id number] [address] OF [facility] Hemoglobin (Bld) [Mass/Vol] 10.3 g/dL Low 11.5-15.5 [facility] Comment on above: Order Comment: Speci men Type: BLOOD SPECIMENOrdering Facility: [facility] Address: [address] [place] [address] Performed By: #### 5 7021-8 ####[facility]ORYCLIA [id number] [address] IMMATURE GRAN % 0.4 % Normal [facility] Comment on above: Order Comment: Speci men Type: BLOOD SPECIMENOrdering Facility: [facility] Address: [address] [place] [address] Performed By: #### 5 7021-8 ####[facility]ORYCLIA [id number] [address] IMMATURE GRAN ABS 0.03 k/uL Normal <0.10 [facility] Comment on above: Order Comment: Speci men Type: BLOOD SPECIMENOrdering Facility: [facility] Address: [address] [place] [address] Performed By: #### 5 7021-8 ####[facility]ATORYCLIA [id number] [address] [place] Lymphocytes (Bld) [#/Vol] 1.27 10*3/uL Normal 1.00-4.0 0 [facility] Comment on above: Order Comment: Speci men Type: BLOOD SPECIMENOrdering Facility: [facility] Address: [address] [place] [address] Performed By: #### 5 7021-8 ####[facility]ORYCLIA [id number] [address] Lymphocytes/100 WBC (Bld) 17.3 % Normal [facility] Comment on above: Order Comment: Speci men Type: BLOOD SPECIMENOrdering Facility: [facility] Address: [address] [place] [address] Performed By: #### 5 7021-8 ####[facility]ATORYCLIA [id number] [address] MCH (RBC) [Entitic mass] 29.9 pg Normal 26.0-34.0 [facility] Comment on above: Order Comment: Speci men Type: BLOOD SPECIMENOrdering Facility: [facility] Address: [address] [place] [address] Performed By: #### 5 7021-8 ####[facility]ORYCLIA [id number] [address] MCHC (RBC) [Mass/Vol] 31.4 g/dL Normal 30.5-36.0 [facility] Comment on above: Order Comment: Speci men Type: BLOOD SPECIMENOrdering Facility: [facility] Address: [address] [place] [address] Performed By: #### 5 7021-8 ####[facility]ORYCLIA [id number] [address] STATES OF [facility] MCV (RBC) [Entitic vol] 95.1 fL Normal 80.0-100.0 [facility] Comment on above: Order Comment: Speci men Type: BLOOD SPECIMENOrdering Facility: [facility] Address: [address] [place] [address] Performed By: #### 5 7021-8 ####[facility]ATORYCLIA [id number] [address] OF [facility] Monocytes (Bld) [#/Vol] 0.91 10*3/uL High <0.87 [facility] Comment on above: Order Comment: Speci men Type: BLOOD SPECIMENOrdering Facility: [facility] Address: [address] [place] [address] Performed By: #### 5 7021-8 ####[facility]ORYCLIA [id number] [address] Monocytes/100 WBC (Bld) 12.4 % Normal A [facility] Comment on above: Order Comment: Speci men Type: BLOOD SPECIMENOrdering Facility: [facility] Address: [address] [place] [address] Performed By: #### 5 7021-8 ####[facility]ORATORYCLIA [id number] [address] [place] Neutrophils (Bld) [#/Vol] 5.05 10*3/uL Normal 1.45-7.5 0 [facility] Comment on above: Order Comment: Speci men Type: BLOOD SPECIMENOrdering Facility: [facility] Address: [address] [place] [address] Performed By: #### 5 7021-8 ####[facility]ATORYCLIA [id number] [address] [place] Neutrophils/100 WBC (Bld) 68.6 % Normal [facility] Comment on above: Order Comment: Speci men Type: BLOOD SPECIMENOrdering Facility: [facility] Address: [address] [place] [address] Performed By: #### 5 7021-8 ####[facility]ATORYCLIA [id number] [address] [place] Nucleated RBC (Bld) [#/Vol] 10*3/uL Normal <0.01 [facility] Comment on above: Order Comment: Speci men Type: BLOOD SPECIMENOrdering Facility: [facility] Address: [address] [place] [address] Performed By: #### 5 7021-8 ####[facility]ORYCLIA [id number] [address] [place] Nucleated RBC/100 WBC (Bld) [Ratio] 0.0 /100 WBC Normal [facility] Comment on above: Order Comment: Speci men Type: BLOOD SPECIMENOrdering Facility: [facility] Address: [address] [place] [address] Performed By: #### 5 7021-8 ####[facility]ATORYCLIA [id number] [place] [address] [place] Platelet mean volume (Bld) [Entitic vol] 8.9 fL Low 9.0-12.7 [facility] Comment on above: Order Comment: Speci men Type: BLOOD SPECIMENOrdering Facility: [facility] Address: [address] [place] [address] Performed By: #### 5 7021-8 ####[facility]ORYCLIA [id number] [place] [address] [place] Platelets (Bld) [#/Vol] 332 10*3/uL Normal 150-400 [facility] Comment on above: Order Comment: Speci men Type: BLOOD SPECIMENOrdering Facility: [facility] Address: [address] [place] [address] Performed By: #### 5 7021-8 ####[facility]ORYCLIA [id number] [place] [address] [place] RBC (Bld) [#/Vol] 3.45 10*6/uL Low 3.90-5.20 [facility] Comment on above: Order Comment: Speci men Type: BLOOD SPECIMENOrdering Facility: [facility] Address: [address] [place] [address] Performed By: #### 5 7021-8 ####[facility]ATORYCLIA [id number] [place] [address] [place] WBC (Bld) [#/Vol] 7.36 10*3/uL Normal 3.70-11.00 [facility] Comment on above: Order Comment: Speci men Type: BLOOD SPECIMENOrdering Facility: [facility] Address: [address] [place] [address] Performed By: #### 5 7021-8 ####[facility]ATORYCLIA [id number] [address] [place] CONSULTon 04-02-2022 CONSULT Normal [facility] CT BRAIN WO IVCONon 08-16-[address] BRAIN WO IVCON Normal [facility] Comprehensive metabolic 2000 panelon 04-02-2022 Albumin [Mass/Vol] 3.8 g/dL Low 3.9-4.9 [facility] Comment on above: Order Comment: Speci men Type: BLOOD SPECIMENOrdering Facility: [facility] Address: [address] [place] [address] Performed By: #### 2 4323-8, 2777-1, ####[facility]ATORYCLIA [id number] [address] STATES OF [facility] ALP [Catalytic activity/Vol] 80 U/L Normal 34-123 [facility] Comment on above: Order Comment: Speci men Type: BLOOD SPECIMENOrdering Facility: [facility] Address: [address] [place] [address] Performed By: #### 2 4323-8, 2777, ####[facility]ATORYCLIA [id number] [address] STATES OF [facility] ALT With P-5'-P [Catalytic activity/Vol] 14 U/L Normal 7-38 [facility] Comment on above: Order Comment: Speci men Type: BLOOD SPECIMENOrdering Facility: [facility] Address: [address] [place] [address] Performed By: #### 2 4323-8, 2777, ####[facility]ATORYCLIA [id number] [address] STATES [facility] Anion gap [Moles/Vol] 11 mmol/L Normal 9-18 [facility] Comment on above: Order Comment: Speci men Type: BLOOD SPECIMENOrdering Facility: [facility] Address: [address] [place] [address] Performed By: #### 2 4323-8, 2777-1, ####[facility]ATORYCLIA [id number] [address] STATES OF [facility] AST With P-5'-P [Catalytic activity/Vol] 14 U/L Normal 13-35 [facility] Comment on above: Order Comment: Speci men Type: BLOOD SPECIMENOrdering Facility: [facility] Address: [address] [address] Performed By: #### 2 4323-8, 2776-08, ####[facility]ATORYCLIA [id number] [place] [address] [place] Bilirubin [Mass/Vol] 0.4 mg/dL Normal 0.2-1.3 [facility] Comment on above: Order Comment: Speci men Type: BLOOD SPECIMENOrdering Facility: [facility] Address: [address] [place] [address] Performed By: #### 2 4323-8, 2776-08, ####[facility]ATORYCLIA [id number] [place] [address] [place] Calcium [Mass/Vol] 9.3 mg/dL Normal 8.5-10.2 [facility] Comment on above: Order Comment: Speci men Type: BLOOD SPECIMENOrdering Facility: [facility] Address: [address] [place] [address] Performed By: #### 2 4323-8, 2776-08, ####[facility]ATORYCLIA [id number] [place] [address] [place] Chloride [Moles/Vol] 108 mmol/L High 97-105 [facility] Comment on above: Order Comment: Speci men Type: BLOOD SPECIMENOrdering Facility: [facility] Address: [address] [address] Performed By: #### 2 4323-8, 2776-08, ####[facility]ATORYCLIA [id number] [place] [address] [place] CO2 [Moles/Vol] 27 mmol/L Normal 22-30 [facility] Comment on above: Order Comment: Speci men Type: BLOOD SPECIMENOrdering Facility: [facility] Address: [address] [place] [id number] Performed By: #### 2 4323-8, 2777-, ####[facility]ITALCLIA [id number] [place] [id number] [place] OF [facility] Creatinine [Mass/Vol] 0.36 mg/dL Low 0.58-0.96 [facility] Comment on above: Order Comment: Lauren santana Type: BLOOD SPECIMENOrdering Facility: [facility] Address: [address] [address] Performed By: #### 2 4323-8, 2777-, ####[facility]ITALCLIA [id number] [address] ESTIMATED GLOMERULAR FILTRATION RATE 111 mL/min/1.73m??? Normal >=60 [facility] Comment on above: Order Comment: Lauren santana Type: BLOOD SPECIMENOrdering Facility: [facility] Address: [address] [address] Result Comment: Ameena mated Glomerular Filtration Rate (eGFR) is calculated using the 2020 CKD-EPI creatinine equation. This equation utilizes serum creatinine, sex, and age as parameters. The creatinine assay has traceable calibration to isotope dilution-mass spectrometry. Refer to KDIGO guidelines for clinical interpretation. In patients with unstable renal function, e.g. those with acute kidney injury, the eGFR may not accurately reflect actual GFR. Performed By: #### 2 4323-8, 2777-, ####[facility]ATORYCLIA [id number] [address] [place] Glucose [Mass/Vol] 131 mg/dL High 74-99 [facility] Comment on above: Order Comment: Lauren santana Type: BLOOD SPECIMENOrdering Facility: [facility] Address: [address] [address] Result Comment: The [place] Diabetes Association (ADA) provides guidance for cutoff values for fasting glucose and random glucose. The ADA defines fasting as no caloric intake for at least 8 hours. Fasting plasma glucose results between 100 to 125 mg/dL indicate increased risk for diabetes (prediabetes).Fasting plasma glucose results greater than or equal to 126 mg/dL meet the criteria for diagnosis of diabetes. In the absence of unequivocal hyperglycemia, results should be confirmed by repeat testing. In a patient with classic symptoms of hyperglycemia or hyperglycemic crisis, random plasma glucose results greater than or equal to 200 mg/dL meet the criteria for diagnosis of diabetes.Reference: Standards of Medical Care in Diabetes 2016, [place] Diabetes Association. Diabetes Care. 2016.39(Suppl 1). Performed By: #### 2 4323-8, 2776-08, ####[facility]ATORYCLIA [id number] [place] [address] [place] Potassium [Moles/Vol] 3.8 mmol/L Normal 3.7-5.1 [facility] Comment on above: Order Comment: Lauren santana Type: BLOOD SPECIMENOrdering Facility: [facility] Address: [address] [place] [address] Performed By: #### 2 4323-8, 2776-08, ####[facility] [id number] [place] [address] [place] Protein [Mass/Vol] 6.7 g/dL Normal 6.3-8.0 [facility] Comment on above: Order Comment: Lauren santana Type: BLOOD SPECIMENOrdering Facility: [facility] Address: [address] [place] [address] Performed By: #### 2 4323-8, 2776-08, ####[facility]ATORYCLIA [id number] [place] [address] [place] Sodium [Moles/Vol] 146 mmol/L High 136-144 [facility] Comment on above: Order Comment: Lauren santana Type: BLOOD SPECIMENOrdering Facility: [facility] Address: [address] [place] [address] Performed By: #### 2 4323-8, 27702-15, ####[facility]ATORYCLIA [id number] [place] [address] [place] Urea nitrogen [Mass/Vol] 18 mg/dL Normal 7-21 [facility] Comment on above: Order Comment: Speci men Type: BLOOD SPECIMENOrdering Facility: [facility] Address: [address] [place] [address] Performed By: #### 2 4323-8, 2777-1, ####[facility]ATORYCLIA [id number] [address] Magnesium SerPl-ncon 04-02 Magnesium [Mass/Vol] 2.0 mg/dL Normal 1.7-2.3 [facility] Comment on above: Order Comment: Speci men Type: BLOOD SPECIMENOrdering Facility: [facility] Address: [address] [place] [address] Performed By: #### 2 4323-8, 2777-1, ####[facility]ORYCLIA [id number] [address] OF [facility] Phosphate SerPl-mCncon 04-02 Phosphate [Mass/Vol] 3.2 mg/dL Normal 2.7-4.8 [facility] Comment on above: Order Comment: Speci men Type: BLOOD SPECIMENOrdering Facility: [facility] Address: [address] [place] [address] Performed By: #### 2 4323-8, 27771, ####[facility]ATORYCLIA [id number] [place] [address] [place] ALLIED HEALTHon 04-01-2022 ALLIED HEALTH Normal [facility] CASE MANAGEMon 04-01-2022 CASE MANAGEM Normal [facility] CASE MGT INIT ASSESon 2021 CASE MGT INIT ASSES Normal [facility] CBC W Auto Differential pane l (Bld)on 04-01-2022 Basophils (Bld) [#/Vol] 0.03 10*3/uL Normal <0.11 [facility] Comment on above: Order Comment: Speci men Type: BLOOD SPECIMENOrdering Facility: [facility] Address: [address] [address] Performed By: #### 5 7021-8 ####[facility]ATORYCLIA [id number] [address] [place] Basophils/100 WBC (Bld) 0.3 % Normal A [facility] Comment on above: Order Comment: Speci men Type: BLOOD SPECIMENOrdering Facility: [facility] Address: [address] [place] [address] Performed By: #### 5 7021-8 ####[facility]ATORYCLIA [id number] [address] Differential cell count method Nom (Bld) Auto Normal [facility] Comment on above: Order Comment: Speci men Type: BLOOD SPECIMENOrdering Facility: [facility] Address: [address] [place] [address] Performed By: #### 5 7021-8 ####[facility]ORYCLIA [id number] [address] STATES OF [facility] Eosinophils (Bld) [#/Vol] 0.04 10*3/uL Normal <0.46 [facility] Comment on above: Order Comment: Speci men Type: BLOOD SPECIMENOrdering Facility: [facility] Address: [address] [place] [address] Performed By: #### 5 7021-8 ####[facility]ATORYCLIA [id number] [address] Eosinophils/100 WBC (Bld) 0.4 % Normal [facility] Comment on above: Order Comment: Speci men Type: BLOOD SPECIMENOrdering Facility: [facility] Address: [address] [place] [address] Performed By: #### 5 7021-8 ####[facility]ORATORYCLIA [id number] [address] [place] Erythrocyte distribution width (RBC) [Ratio] 19.1 % High 11.5-15.0 [facility] Comment on above: Order Comment: Speci men Type: BLOOD SPECIMENOrdering Facility: [facility] Address: [address] [place] [address] Performed By: #### 5 7021-8 ####[facility]ATORYCLIA [id number] [address] Hematocrit (Bld) [Volume fraction] 32.6 % Low 36.0-46.0 [facility] Comment on above: Order Comment: Speci men Type: BLOOD SPECIMENOrdering Facility: [facility] Address: [address] [place] [address] Performed By: #### 5 7021-8 ####[facility]ATORYCLIA [id number] [address] Hemoglobin (Bld) [Mass/Vol] 10.2 g/dL Low 11.5-15.5 [facility] Comment on above: Order Comment: Speci men Type: BLOOD SPECIMENOrdering Facility: [facility] Address: [address] [place] [address] Performed By: #### 5 7021-8 ####[facility]ATORYCLIA [id number] [address] IMMATURE GRAN % 0.4 % Normal [facility] Comment on above: Order Comment: Speci men Type: BLOOD SPECIMENOrdering Facility: [facility] Address: [address] [place] [address] Performed By: #### 5 7021-8 ####[facility]ATORYCLIA [id number] [address] IMMATURE GRAN ABS 0.04 k/uL Normal <0.10 [facility] Comment on above: Order Comment: Speci men Type: BLOOD SPECIMENOrdering Facility: [facility] Address: [address] [place] [address] Performed By: #### 5 7021-8 ####[facility]ATORYCLIA [id number] [address] Lymphocytes (Bld) [#/Vol] 1.15 10*3/uL Normal 1.00-4.0 0 [facility] Comment on above: Order Comment: Speci men Type: BLOOD SPECIMENOrdering Facility: [facility] Address: [address] [place] [address] Performed By: #### 5 7021-8 ####[facility]ATORYCLIA [id number] [address] Lymphocytes/100 WBC (Bld) 11.9 % Normal [facility] Comment on above: Order Comment: Speci men Type: BLOOD SPECIMENOrdering Facility: [facility] Address: [address] [place] [address] Performed By: #### 5 7021-8 ####[facility]ATORYCLIA [id number] [address] STATES OF [facility] MCH (RBC) [Entitic mass] 30.0 pg Normal 26.0-34.0 [facility] Comment on above: Order Comment: Speci men Type: BLOOD SPECIMENOrdering Facility: [facility] Address: [address] [place] [address] Performed By: #### 5 7021-8 ####[facility]ORYCLIA [id number] [address] MCHC (RBC) [Mass/Vol] 31.3 g/dL Normal 30.5-36.0 [facility] Comment on above: Order Comment: Speci men Type: BLOOD SPECIMENOrdering Facility: [facility] Address: [address] [place] [address] Performed By: #### 5 7021-8 ####[facility]ATORYCLIA [id number] [address] MCV (RBC) [Entitic vol] 95.9 fL Normal 80.0-100.0 [facility] Comment on above: Order Comment: Speci men Type: BLOOD SPECIMENOrdering Facility: [facility] Address: [address] [place] [address] Performed By: #### 5 7021-8 ####[facility]ATORYCLIA [id number] [place] [address] [place] Monocytes (Bld) [#/Vol] 1.14 10*3/uL High <0.87 [facility] Comment on above: Order Comment: Speci men Type: BLOOD SPECIMENOrdering Facility: [facility] Address: [address] [place] [address] Performed By: #### 5 7021-8 ####[facility]ORYCLIA [id number] [address] [place] Monocytes/100 WBC (Bld) 11.8 % Normal A [facility] Comment on above: Order Comment: Speci men Type: BLOOD SPECIMENOrdering Facility: [facility] Address: [address] [place] [address] Performed By: #### 5 7021-8 ####[facility]ORYCLIA [id number] [address] [place] Neutrophils (Bld) [#/Vol] 7.30 10*3/uL Normal 1.45-7.5 0 [facility] Comment on above: Order Comment: Speci men Type: BLOOD SPECIMENOrdering Facility: [facility] Address: [address] [place] [address] Performed By: #### 5 7021-8 ####[facility]ATORYCLIA [id number] [address] [place] Neutrophils/100 WBC (Bld) 75.2 % Normal [facility] Comment on above: Order Comment: Speci men Type: BLOOD SPECIMENOrdering Facility: [facility] Address: [address] [place] [address] Performed By: #### 5 7021-8 ####[facility]ORYCLIA [id number] [place] [address] [place] Nucleated RBC (Bld) [#/Vol] 10*3/uL Normal <0.01 [facility] Comment on above: Order Comment: Speci men Type: BLOOD SPECIMENOrdering Facility: [facility] Address: [address] Performed By: #### 5 7021-8 ####[facility]ATORYCLIA [id number] [address] Nucleated RBC/100 WBC (Bld) [Ratio] 0.0 /100 WBC Normal [facility] Comment on above: Order Comment: Speci men Type: BLOOD SPECIMENOrdering Facility: [facility] Address: [address] [place] [address] Performed By: #### 5 7021-8 ####[facility]ATORYCLIA [id number] [address] [place] Platelet mean volume (Bld) [Entitic vol] 9.3 fL Normal 9.0-12.7 [facility] Comment on above: Order Comment: Speci men Type: BLOOD SPECIMENOrdering Facility: [facility] Address: [address] [place] [address] Performed By: #### 5 7021-8 ####[facility]ORYCLIA [id number] [address] [place] Platelets (Bld) [#/Vol] 341 10*3/uL Normal 150-400 [facility] Comment on above: Order Comment: Speci men Type: BLOOD SPECIMENOrdering Facility: [facility] Address: [address] [place] [address] Performed By: #### 5 7021-8 ####[facility]ORYCLIA [id number] [address] [place] RBC (Bld) [#/Vol] 3.40 10*6/uL Low 3.90-5.20 [facility] Comment on above: Order Comment: Speci men Type: BLOOD SPECIMENOrdering Facility: [facility] Address: [address] [place] [address] Performed By: #### 5 7021-8 ####[facility]ORYCLIA [id number] [address] [place] WBC (Bld) [#/Vol] 9.70 10*3/uL Normal 3.70-11.00 [facility] Comment on above: Order Comment: Speci men Type: BLOOD SPECIMENOrdering Facility: [facility] Address: [address] [place] [address] Performed By: #### 5 7021-8 ####[facility]ATORYCLIA [id number] [address] OF [facility] CONSULT PROGon 04-01-2022 CONSULT PROG Normal [facility] CT BRAIN WO IVCONon 04-01-20 CT BRAIN WO IVCON Normal [facility] Comprehensive metabolic 2000 panelon 04-01-2022 Albumin [Mass/Vol] 3.8 g/dL Low 3.9-4.9 [facility] Comment on above: Order Comment: Speci men Type: BLOOD SPECIMENOrdering Facility: [facility] Address: [address] [place] [address] Performed By: #### 2 4323-8, , 2776-08 ####[facility]ATORYCLIA [id number] [address] ALP [Catalytic activity/Vol] 77 U/L Normal 34-123 [facility] Comment on above: Order Comment: Speci men Type: BLOOD SPECIMENOrdering Facility: [facility] Address: [address] [place] [address] Performed By: #### 2 4323-8, , 2776-08 ####[facility]ORYCLIA [id number] [address] ALT With P-5'-P [Catalytic activity/Vol] 9 U/L Normal 7-38 [facility] Comment on above: Order Comment: Speci men Type: BLOOD SPECIMENOrdering Facility: [facility] Address: [address] [place] [address] Performed By: #### 2 4323-8, , 2776-08 ####[facility]ATORYCLIA [id number] [address] [place] Anion gap [Moles/Vol] 14 mmol/L Normal 9-18 [facility] Comment on above: Order Comment: Speci men Type: BLOOD SPECIMENOrdering Facility: [facility] Address: [address] [place] [address] Performed By: #### 2 4323-8, , 2776-08 ####[facility]ATORYCLIA [id number] [place] [address] [place] AST With P-5'-P [Catalytic activity/Vol] 13 U/L Normal 13-35 [facility] Comment on above: Order Comment: Speci men Type: BLOOD SPECIMENOrdering Facility: [facility] Address: [address] [place] [address] Performed By: #### 2 4323-8, , 2776-08 ####[facility]ATORYCLIA [id number] [address] STATES OF [facility] Bilirubin [Mass/Vol] 0.3 mg/dL Normal 0.2-1.3 [facility] Comment on above: Order Comment: Speci men Type: BLOOD SPECIMENOrdering Facility: [facility] Address: [address] [place] [address] Performed By: #### 2 4323-8, , 2776-08 ####[facility]ATORYCLIA [id number] [address] [place] Calcium [Mass/Vol] 9.4 mg/dL Normal 8.5-10.2 [facility] Comment on above: Order Comment: Speci men Type: BLOOD SPECIMENOrdering Facility: [facility] Address: [address] [place] [address] Performed By: #### 2 4323-8, , 2776-08 ####[facility]ATORYCLIA [id number] [place] [address] [place] Chloride [Moles/Vol] 109 mmol/L High 97-105 [facility] Comment on above: Order Comment: Speci men Type: BLOOD SPECIMENOrdering Facility: [facility] Address: [address] [place] [address] Performed By: #### 2 4323-8, , 2776-08 ####[facility]ATORYCLIA [id number] [address] CO2 [Moles/Vol] 23 mmol/L Normal 22-30 [facility] Comment on above: Order Comment: Speci men Type: BLOOD SPECIMENOrdering Facility: [facility] Address: [address] [place] [address] Performed By: #### 2 4323-8, , 2776-08 ####[facility]ATORYCLIA [id number] [address] Creatinine [Mass/Vol] 0.36 mg/dL Low 0.58-0.96 [facility] Comment on above: Order Comment: Speci men Type: BLOOD SPECIMENOrdering Facility: [facility] Address: [address] [place] [address] Performed By: #### 2 4323-8, , 2776-08 ####[facility]ATORYCLIA [id number] [address] ESTIMATED GLOMERULAR FILTRATION RATE 111 mL/min/1.73m??? Normal >=60 [facility] Comment on above: Order Comment: Speci men Type: BLOOD SPECIMENOrdering Facility: [facility] Address: [address] [place] [address] Result Comment: Aemena mated Glomerular Filtration Rate (eGFR) is calculated using the 2020 CKD-EPI creatinine equation. This equation utilizes serum creatinine, sex, and age as parameters. The creatinine assay has traceable calibration to isotope dilution-mass spectrometry. Refer to KDIGO guidelines for clinical interpretation. In patients with unstable renal function, e.g. those with acute kidney injury, the eGFR may not accurately reflect actual GFR. Performed By: #### 2 4323-8, 26332-32776-08 ####[facility]ATORYCLIA [id number] [place] [address] [place] Glucose [Mass/Vol] 156 mg/dL High 74-99 [facility] Comment on above: Order Comment: Speci men Type: BLOOD SPECIMENOrdering Facility: [facility] Address: [address] [place], [place] [address] Result Comment: The [place] Diabetes [employer] (ADA) provides guidance for cutoff values for fasting glucose and random glucose. The ADA defines fasting as no caloric intake for at least 8 hours. Fasting plasma glucose results between 100 to 125 mg/dL indicate increased risk for diabetes (prediabetes).Fasting plasma glucose results greater than or equal to 126 mg/dL meet the criteria for diagnosis of diabetes. In the absence of unequivocal hyperglycemia, results should be confirmed by repeat testing. In a patient with classic symptoms of hyperglycemia or hyperglycemic crisis, random plasma glucose results greater than or equal to 200 mg/dL meet the criteria for diagnosis of diabetes.Reference: Standards of Medical Care in Diabetes 2016, [place] [employer]. Diabetes Care. 2016.39(Suppl 1). Performed By: #### 2 4323-8, , 2776-08 ####[facility]ATORYCLIA [id number] [place] [address] [place] Potassium [Moles/Vol] 3.6 mmol/L Low 3.7-5.1 [facility] Comment on above: Order Comment: Speci men Type: BLOOD SPECIMENOrdering Facility: [facility] Address: [address] [place], [place] [address] Performed By: #### 2 4323-8, , 2776-08 ####[facility]ORATORYCLIA [id number] [place] [id number] [place] Protein [Mass/Vol] 6.7 g/dL Normal 6.3-8.0 [facility] Comment on above: Order Comment: Lucreciai men Type: BLOOD SPECIMENOrdering Facility: [facility] Address: [address] [place], [place] [address] Performed By: #### 2 4323-8, , 2776-08 ####[facility]ORATORYCLIA [id number] [place] [address] [place] Sodium [Moles/Vol] 146 mmol/L High 136-144 [facility] Comment on above: Order Comment: Speci men Type: BLOOD SPECIMENOrdering Facility: [facility] Address: [address] [place] [address] Performed By: #### 2 4323-8, , 2776-08 ####[facility]ATORYCLIA [id number] [place] [address] [place] Urea nitrogen [Mass/Vol] 19 mg/dL Normal 7-21 [facility] Comment on above: Order Comment: Speci men Type: BLOOD SPECIMENOrdering Facility: [facility] Address: [address] [place] [address] Performed By: #### 2 4323-8, , 2776-08 ####[facility]ATORYCLIA [id number] [address] [place] Magnesium SerPl-mCncon 04-01 Magnesium [Mass/Vol] 2.2 mg/dL Normal 1.7-2.3 [facility] Comment on above: Order Comment: Speci men Type: BLOOD SPECIMENOrdering Facility: [facility] Address: [address] [place] [address] Performed By: #### 2 4323-8, , 2776-08 ####[facility]ATORYCLIA [id number] [place] [address] [place] NURSING PROGon 04-01-2022 NURSING PROG Normal [facility] NUTRITIONon 04-01-2022 NUTRITION Normal [facility] Phosphate SerPl-mCncon 04-01 Phosphate [Mass/Vol] 2.6 mg/dL Low 2.7-4.8 [facility] Comment on above: Order Comment: Speci men Type: BLOOD SPECIMENOrdering Facility: [facility] Address: [address] [place] [address] Performed By: #### 2 4323-8, 72708-8, 2777-1 ####[facility]ATORYCLIA [id number] [address] OF [facility] THERAPY NTon 04-01-2022 THERAPY NT Normal [facility] CBC W Auto Differential pane l (Bld)on 03-31-2022 Basophils (Bld) [#/Vol] 10*3/uL Normal <0.11 [facility] Comment on above: Order Comment: Speci men Type: BLOOD SPECIMENOrdering Facility: [facility] Address: [address] [place] [address] Performed By: #### 5 7021-8 ####[facility]ATORYCLIA [id number] [address] Basophils/100 WBC (Bld) 0.2 % Normal [facility] Comment on above: Order Comment: Speci men Type: BLOOD SPECIMENOrdering Facility: [facility] Address: [address] [place] [address] Performed By: #### 5 7021-8 ####[facility]ATORYCLIA [id number] [address] Differential cell count method Nom (Bld) Auto Normal [facility] Comment on above: Order Comment: Speci men Type: BLOOD SPECIMENOrdering Facility: [facility] Address: [address] [address] Performed By: #### 5 7021-8 ####[facility]ATORYCLIA [id number] [address] STATES [facility] Eosinophils (Bld) [#/Vol] 0.03 10*3/uL Normal <0.46 [facility] Comment on above: Order Comment: Speci men Type: BLOOD SPECIMENOrdering Facility: [facility] Address: [address] [address] Performed By: #### 5 7021-8 ####[facility]ATORYCLIA [id number] [address] [place] Eosinophils/100 WBC (Bld) 0.2 % Normal [facility] Comment on above: Order Comment: Speci men Type: BLOOD SPECIMENOrdering Facility: [facility] Address: [address] [place] [address] Performed By: #### 5 7021-8 ####[facility]ATORYCLIA [id number] [address] OF [facility] Erythrocyte distribution width (RBC) [Ratio] 19.3 % High 11.5-15.0 [facility] Comment on above: Order Comment: Speci men Type: BLOOD SPECIMENOrdering Facility: [facility] Address: [address] [place] [address] Performed By: #### 5 7021-8 ####[facility]ATORYCLIA [id number] [address] Hematocrit (Bld) [Volume fraction] 32.7 % Low 36.0-46.0 [facility] Comment on above: Order Comment: Speci men Type: BLOOD SPECIMENOrdering Facility: [facility] Address: [address] [place] [address] Performed By: #### 5 7021-8 ####[facility]ATORYCLIA [id number] [address] Hemoglobin (Bld) [Mass/Vol] 10.1 g/dL Low 11.5-15.5 [facility] Comment on above: Order Comment: Speci men Type: BLOOD SPECIMENOrdering Facility: [facility] Address: [address] [place] [address] Performed By: #### 5 7021-8 ####[facility]ORATORYCLIA [id number] [address] IMMATURE GRAN % 0.6 % Normal [facility] Comment on above: Order Comment: Speci men Type: BLOOD SPECIMENOrdering Facility: [facility] Address: [address] [place] [address] Performed By: #### 5 7021-8 ####[facility]ORATORYCLIA [id number] [address] IMMATURE GRAN ABS 0.08 k/uL Normal <0.10 [facility] Comment on above: Order Comment: Speci men Type: BLOOD SPECIMENOrdering Facility: [facility] Address: [address] [place] [address] Performed By: #### 5 7021-8 ####[facility]ATORYCLIA [id number] [address] Lymphocytes (Bld) [#/Vol] 1.13 10*3/uL Normal 1.00-4.0 0 [facility] Comment on above: Order Comment: Speci men Type: BLOOD SPECIMENOrdering Facility: [facility] Address: [address] [place] [address] Performed By: #### 5 7021-8 ####[facility]ORATORYCLIA [id number] [address] Lymphocytes/100 WBC (Bld) 9.1 % Normal [facility] Comment on above: Order Comment: Speci men Type: BLOOD SPECIMENOrdering Facility: [facility] Address: [address] [place] [address] Performed By: #### 5 7021-8 ####[facility]ATORYCLIA [id number] [address] MCH (RBC) [Entitic mass] 29.9 pg Normal 26.0-34.0 [facility] Comment on above: Order Comment: Speci men Type: BLOOD SPECIMENOrdering Facility: [facility] Address: [address] [place] [address] Performed By: #### 5 7021-8 ####[facility]ATORYCLIA [id number] [address] MCHC (RBC) [Mass/Vol] 30.9 g/dL Normal 30.5-36.0 [facility] Comment on above: Order Comment: Speci men Type: BLOOD SPECIMENOrdering Facility: [facility] Address: [address] [place] [address] Performed By: #### 5 7021-8 ####[facility]ATORYCLIA [id number] [address] [place] MCV (RBC) [Entitic vol] 96.7 fL Normal 80.0-100.0 A [facility] Comment on above: Order Comment: Speci men Type: BLOOD SPECIMENOrdering Facility: [facility] Address: [address] [place] [address] Performed By: #### 5 7021-8 ####[facility]ATORYCLIA [id number] [address] Monocytes (Bld) [#/Vol] 1.34 10*3/uL High <0.87 [facility] Comment on above: Order Comment: Speci men Type: BLOOD SPECIMENOrdering Facility: [facility] Address: [address] [place] [address] Performed By: #### 5 7021-8 ####[facility]ATORYCLIA [id number] [address] [place] Monocytes/100 WBC (Bld) 10.9 % Normal A [facility] Comment on above: Order Comment: Speci men Type: BLOOD SPECIMENOrdering Facility: [facility] Address: [address] [place] [address] Performed By: #### 5 7021-8 ####[facility]ATORYCLIA [id number] [address] [place] Neutrophils (Bld) [#/Vol] 9.75 10*3/uL High 1.45-7.5 0 [facility] Comment on above: Order Comment: Speci men Type: BLOOD SPECIMENOrdering Facility: [facility] Address: [address] [place] [address] Performed By: #### 5 7021-8 ####[facility]ATORYCLIA [id number] [address] [place] Neutrophils/100 WBC (Bld) 79.0 % Normal [facility] Comment on above: Order Comment: Speci men Type: BLOOD SPECIMENOrdering Facility: [facility] Address: [facility]0 [address] Performed By: #### 5 7021-8 ####[facility]ATORYCLIA [id number] [address] [place] Nucleated RBC (Bld) [#/Vol] 10*3/uL Normal <0.01 [facility] Comment on above: Order Comment: Speci men Type: BLOOD SPECIMENOrdering Facility: [facility] Address: [address] [place], [place] [address] Performed By: #### 5 7021-8 ####[facility]ATORYCLIA [id number] [address] [place] Nucleated RBC/100 WBC (Bld) [Ratio] 0.0 /100 WBC Normal [facility] Comment on above: Order Comment: Speci men Type: BLOOD SPECIMENOrdering Facility: [facility] Address: [address] [place], [place] [address] Performed By: #### 5 7021-8 ####[facility]ORYCLIA [id number] [address] [place] Platelet mean volume (Bld) [Entitic vol] 9.3 fL Normal 9.0-12.7 [facility] Comment on above: Order Comment: Speci men Type: BLOOD SPECIMENOrdering Facility: [facility] Address: [address] Performed By: #### 5 7021-8 ####[facility]ATORYCLIA [id number] [place] [address] [place] Platelets (Bld) [#/Vol] 312 10*3/uL Normal 150-400 [facility] Comment on above: Order Comment: Speci men Type: BLOOD SPECIMENOrdering Facility: [facility] Address: [address] Performed By: #### 5 7021-8 ####[facility]ATORYCLIA [id number] [address] OF [facility] RBC (Bld) [#/Vol] 3.38 10*6/uL Low 3.90-5.20 [facility] Comment on above: Order Comment: Speci men Type: BLOOD SPECIMENOrdering Facility: [facility] Address: [address] [place] [address] Performed By: #### 5 7021-8 ####[facility]ATORYCLIA [id number] [address] WBC (Bld) [#/Vol] 12.35 10*3/uL High 3.70-11.00 [facility] Comment on above: Order Comment: Speci men Type: BLOOD SPECIMENOrdering Facility: [facility] Address: [address] [place] [address] Performed By: #### 5 7021-8 ####[facility]ORATORYCLIA [id number] [address] Comprehensive metabolic 2000 panelon 03-31-2022 Albumin [Mass/Vol] 3.9 g/dL Normal 3.9-4.9 [facility] Comment on above: Order Comment: Speci men Type: BLOOD SPECIMENOrdering Facility: [facility] Address: [address] [place] [address] Performed By: #### 2 4323-8 ####[facility]ATORYCLIA [id number] [address] ALP [Catalytic activity/Vol] 75 U/L Normal 34-123 [facility] Comment on above: Order Comment: Speci men Type: BLOOD SPECIMENOrdering Facility: [facility] Address: [address] [place] [address] Performed By: #### 2 4323-8 ####[facility]ATORYCLIA [id number] [address] ALT With P-5'-P [Catalytic activity/Vol] 9 U/L Normal 7-38 [facility] Comment on above: Order Comment: Speci men Type: BLOOD SPECIMENOrdering Facility: [facility] Address: [address] [place] [address] Performed By: #### 2 4323-8 ####[facility]ORATORYCLIA [id number] [address] STATES OF [facility] Anion gap [Moles/Vol] 16 mmol/L Normal 9-18 [facility] Comment on above: Order Comment: Speci men Type: BLOOD SPECIMENOrdering Facility: [facility] Address: [address] [place] [address] Performed By: #### 2 4323-8 ####[facility]ATORYCLIA [id number] [address] [place] AST With P-5'-P [Catalytic activity/Vol] 9 U/L Low 13-35 [facility] Comment on above: Order Comment: Speci men Type: BLOOD SPECIMENOrdering Facility: [facility] Address: [address] [place] [address] Performed By: #### 2 4323-8 ####[facility]ATORYCLIA [id number] [address] [place] Bilirubin [Mass/Vol] 0.3 mg/dL Normal 0.2-1.3 [facility] Comment on above: Order Comment: Speci men Type: BLOOD SPECIMENOrdering Facility: [facility] Address: [address] [place] [address] Performed By: #### 2 4323-8 ####[facility]ATORYCLIA [id number] [address] [place] Calcium [Mass/Vol] 9.0 mg/dL Normal 8.5-10.2 [facility] Comment on above: Order Comment: Speci men Type: BLOOD SPECIMENOrdering Facility: [facility] Address: [address] [place] [address] Performed By: #### 2 4323-8 ####[facility]ATORYCLIA [id number] [address] Chloride [Moles/Vol] 109 mmol/L High 97-105 [facility] Comment on above: Order Comment: Speci men Type: BLOOD SPECIMENOrdering Facility: [facility] Address: [address] [place] [address] Performed By: #### 2 4323-8 ####[facility]ATORYCLIA [id number] [address] [place] CO2 [Moles/Vol] 17 mmol/L Low 22-30 [facility] Comment on above: Order Comment: Speci men Type: BLOOD SPECIMENOrdering Facility: [facility] Address: [address] [place] [address] Performed By: #### 2 4323-8 ####[facility]CLIA [id number] [address] Creatinine [Mass/Vol] 0.36 mg/dL Low 0.58-0.96 [facility] Comment on above: Order Comment: Speci men Type: BLOOD SPECIMENOrdering Facility: [facility] Address: [address] [place] [address] Performed By: #### 2 4323-8 ####[facility]ORYCLIA [id number] [address] ESTIMATED GLOMERULAR FILTRATION RATE 111 mL/min/1.73m??? Normal >=60 [facility] Comment on above: Order Comment: Speci men Type: BLOOD SPECIMENOrdering Facility: [facility] Address: [address] [place] [address] Result Comment: Ameena mated Glomerular Filtration Rate (eGFR) is calculated using the 2020 CKD-EPI creatinine equation. This equation utilizes serum creatinine, sex, and age as parameters. The creatinine assay has traceable calibration to isotope dilution-mass spectrometry. Refer to KDIGO guidelines for clinical interpretation. In patients with unstable renal function, e.g. those with acute kidney injury, the eGFR may not accurately reflect actual GFR. Performed By: #### 2 4323-8 ####[facility]ATORYCLIA [id number] [place] [address] [place] Glucose [Mass/Vol] 134 mg/dL High 74-99 [facility] Comment on above: Order Comment: Lauren santana Type: BLOOD SPECIMENOrdering Facility: [facility] Address: [address] [place] [address] Result Comment: The [place] [employer] (ADA) provides guidance for cutoff values for fasting glucose and random glucose. The ADA defines fasting as no caloric intake for at least 8 hours. Fasting plasma glucose results between 100 to 125 mg/dL indicate increased risk for diabetes (prediabetes).Fasting plasma glucose results greater than or equal to 126 mg/dL meet the criteria for diagnosis of diabetes. In the absence of unequivocal hyperglycemia, results should be confirmed by repeat testing. In a patient with classic symptoms of hyperglycemia or hyperglycemic crisis, random plasma glucose results greater than or equal to 200 mg/dL meet the criteria for diagnosis of diabetes.Reference: Standards of Medical Care in Diabetes 2016, [place] [employer]. Diabetes Care. 2016.39(Suppl 1). Performed By: #### 2 4323-8 ####[facility]ORATORYCLIA [id number] [place] [address] [place] Potassium [Moles/Vol] 3.9 mmol/L Normal 3.7-5.1 [facility] Comment on above: Order Comment: Lauren santana Type: BLOOD SPECIMENOrdering Facility: [facility] Address: [address] [place] [address] Performed By: #### 2 4323-8 ####[facility]ATORYCLIA [id number] [place] [address] [place] Protein [Mass/Vol] 6.5 g/dL Normal 6.3-8.0 [facility] Comment on above: Order Comment: Lauren santana Type: BLOOD SPECIMENOrdering Facility: [facility] Address: [address] [place] [address] Performed By: #### 2 4323-8 ####[facility]ORYCLIA [id number] [place] [address] [place] Sodium [Moles/Vol] 142 mmol/L Normal 136-144 [facility] Comment on above: Order Comment: Speci men Type: BLOOD SPECIMENOrdering Facility: [facility] Address: [address] [place] [address] Performed By: #### 2 4323-8 ####[facility]ORYCLIA [id number] [address] STATES OF [facility] Urea nitrogen [Mass/Vol] 16 mg/dL Normal 7-21 [facility] Comment on above: Order Comment: Speci men Type: BLOOD SPECIMENOrdering Facility: [facility] Address: [address] [place] [address] Performed By: #### 2 4323-8 ####[facility]ORYCLIA [id number] [address] STATES OF [facility] Albumin [Mass/Vol] 4.1 g/dL Normal 3.9-4.9 [facility] Comment on above: Order Comment: Speci men Type: BLOOD SPECIMENOrdering Facility: [facility] Address: [address] [place] [address] Performed By: #### 2 4323-8, , 2776-1 ####[facility]ORYCLIA [id number] [address] [place] ALP [Catalytic activity/Vol] 74 U/L Normal 34-123 [facility] Comment on above: Order Comment: Speci men Type: BLOOD SPECIMENOrdering Facility: [facility] Address: [address] [place] [address] Performed By: #### 2 4323-8, , 2776-1 ####[facility]ATORYCLIA [id number] [place] [address] [place] ALT With P-5'-P [Catalytic activity/Vol] 9 U/L Normal 7-38 [facility] Comment on above: Order Comment: Speci men Type: BLOOD SPECIMENOrdering Facility: [facility] Address: [address] [place] [address] Performed By: #### 2 4323-8, , 2776-08 ####[facility]ORATORYCLIA [id number] [place], [place] [id number] [place] [address] STATES [place] [facility] Anion gap [Moles/Vol] 17 mmol/L Normal 9-18 [facility] Comment on above: Order Comment: Speci men Type: BLOOD SPECIMENOrdering Facility: [facility] Address: [address] [place] [address] Performed By: #### 2 4323-8, , 2776-08 ####[facility]ATORYCLIA [id number] [place] [id number] [place] AST With P-5'-P [Catalytic activity/Vol] 9 U/L Low 13-35 [facility] Comment on above: Order Comment: Speci men Type: BLOOD SPECIMENOrdering Facility: [facility] Address: [address] [place] [address] Performed By: #### 2 432-8, , 2776-08 ####[facility]ITALCLIA [id number] [address] STATES OF [facility] Bilirubin [Mass/Vol] 0.3 mg/dL Normal 0.2-1.3 [facility] Comment on above: Order Comment: Speci men Type: BLOOD SPECIMENOrdering Facility: [facility] Address: [address] [place] [address] Performed By: #### 2 4323-8, , 2776-08 ####[facility]ORYCLIA [id number] [address] STATES OF [facility] Calcium [Mass/Vol] 9.1 mg/dL Normal 8.5-10.2 [facility] Comment on above: Order Comment: Speci men Type: BLOOD SPECIMENOrdering Facility: [facility] Address: [address] [place] [address] Performed By: #### 2 4323-8, , 2776-08 ####[facility]ATORYCLIA [id number] [address] [facility] Chloride [Moles/Vol] 110 mmol/L High 97-105 [facility] Comment on above: Order Comment: Speci men Type: BLOOD SPECIMENOrdering Facility: [facility] Address: [address] [place] [address] Performed By: #### 2 4323-8, 29026-4, 277- ####[facility]ATORYCLIA [id number] [address] OF [facility] CO2 [Moles/Vol] 13 mmol/L Low 22-30 [facility] Comment on above: Order Comment: Speci men Type: BLOOD SPECIMENOrdering Facility: [facility] Address: [address] [place] [address] Performed By: #### 2 4323-8, , 2776-08 ####[facility]ATORYCLIA [id number] [address] Creatinine [Mass/Vol] 0.37 mg/dL Low 0.58-0.96 [facility] Comment on above: Order Comment: Speci men Type: BLOOD SPECIMENOrdering Facility: [facility] Address: [address] [place] [address] Performed By: #### 2 4323-8, , 2776-08 ####[facility]ATORYCLIA [id number] [address] ESTIMATED GLOMERULAR FILTRATION RATE 111 mL/min/1.73m??? Normal >=60 [facility] Comment on above: Order Comment: Speci men Type: BLOOD SPECIMENOrdering Facility: [facility] Address: [address] [place] [address] Result Comment: Ameena mated Glomerular Filtration Rate (eGFR) is calculated using the 2020 CKD-EPI creatinine equation. This equation utilizes serum creatinine, sex, and age as parameters. The creatinine assay has traceable calibration to isotope dilution-mass spectrometry. Refer to KDIGO guidelines for clinical interpretation. In patients with unstable renal function, e.g. those with acute kidney injury, the eGFR may not accurately reflect actual GFR. Performed By: #### 2 4323-8, 67781-8, 2776-08 ####[facility]ATORYCLIA [id number] [place] [address] [place] Glucose [Mass/Vol] 128 mg/dL High 74-99 [facility] Comment on above: Order Comment: Speci men Type: BLOOD SPECIMENOrdering Facility: [facility] Address: [address] [place] [address] Result Comment: The [place] Diabetes [employer] (ADA) provides guidance for cutoff values for fasting glucose and random glucose. The ADA defines fasting as no caloric intake for at least 8 hours. Fasting plasma glucose results between 100 to 125 mg/dL indicate increased risk for diabetes (prediabetes).Fasting plasma glucose results greater than or equal to 126 mg/dL meet the criteria for diagnosis of diabetes. In the absence of unequivocal hyperglycemia, results should be confirmed by repeat testing. In a patient with classic symptoms of hyperglycemia or hyperglycemic crisis, random plasma glucose results greater than or equal to 200 mg/dL meet the criteria for diagnosis of diabetes.Reference: Standards of Medical Care in Diabetes 2016, [place] [employer]. Diabetes Care. 2016.39(Suppl 1). Performed By: #### 2 4323-8, , 2776-08 ####[facility]ORATORYCLIA [id number] [place] [address] [place] Potassium [Moles/Vol] 4.1 mmol/L Normal 3.7-5.1 [facility] Comment on above: Order Comment: Lauren men Type: BLOOD SPECIMENOrdering Facility: [facility] Address: [address] [place] [place] [id number] Performed By: #### 2 4323-8, , 2776-08 ####[facility]ORATORYCLIA [id number] [place] [address] [place] Protein [Mass/Vol] 6.8 g/dL Normal 6.3-8.0 [facility] Comment on above: Order Comment: Lucreciai men Type: BLOOD SPECIMENOrdering Facility: [facility] Address: [address] [place] [address] Performed By: #### 2 4323-8, 48402-3, 2776- ####[facility]ORATORYCLIA [id number] [place] [address] [place] Sodium [Moles/Vol] 140 mmol/L Normal 136-144 [facility] Comment on above: Order Comment: Speci men Type: BLOOD SPECIMENOrdering Facility: [facility] Address: [address] [place] [address] Performed By: #### 2 4323-8, , 2776-08 ####[facility]ORATORYCLIA [id number] [place] [id number] [place] Urea nitrogen [Mass/Vol] 15 mg/dL Normal 7-21 [facility] Comment on above: Order Comment: Speci men Type: BLOOD SPECIMENOrdering Facility: [facility] Address: [address] [place] [address] Performed By: #### 2 4323-8, , 2776-08 ####[facility]ORATORYCLIA [id number] [place] [address] [place] Magnesium SerPl-mCncon 03-31 Magnesium [Mass/Vol] 2.2 mg/dL Normal 1.7-2.3 [facility] Comment on above: Order Comment: Speci men Type: BLOOD SPECIMENOrdering Facility: [facility] Address: [address] [place] [address] Performed By: #### 2 4323-8, , 2776-08 ####[facility]ORATORYCLIA [id number] [place] [id number] [place] Phosphate SerPl-mCncon 03-31 Phosphate [Mass/Vol] 1.9 mg/dL Low 2.7-4.8 [facility] Comment on above: Order Comment: Speci men Type: BLOOD SPECIMENOrdering Facility: [facility] Address: [address] [place] [address] Performed By: #### 2 4323-8, , 7-1 ####[facility]ORATORYCLIA [id number] [place] [address] [place] ALLIED HEALTHon 03-30-2022 ALLIED HEALTH Normal [facility] ALLIED HEALTH Normal [facility] ALLIED HEALTH Normal [facility] ARTERIAL BLOOD GASESon 03-30 BASE DEFICIT, ARTERIAL -14 mmol/L Low -2-0 [facility] Comment on above: Order Comment: Speci men Type: ARTERIAL BLOOD SPECIMENOrdering Facility: [facility] Address: [address] [place] [address] Performed By: #### A LLBG ####[facility] LABORATORYCLIA [id number] [address] [place] Body temperature 99.86 [degF] Normal [facility] Comment on above: Order Comment: Speci men Type: ARTERIAL BLOOD SPECIMENOrdering Facility: [facility] Address: [address] [place] [address] Performed By: #### A LLBG ####[facility] LABORATORYCLIA [id number] [place] [address] [place] CALCIUM IONIZED, PH CORRECTED 1.17 mmol/L Normal 1.08-1.30 [facility] Comment on above: Order Comment: Speci men Type: ARTERIAL BLOOD SPECIMENOrdering Facility: [facility] Address: [address] [place] [address] Performed By: #### A LLBG ####[facility]ORATORYCLIA [id number] [address] [place] Calcium.ionized (BldV) [Mass/Vol] 1.24 mmol/L Normal 1.08-1.30 [facility] Comment on above: Order Comment: Speci men Type: ARTERIAL BLOOD SPECIMENOrdering Facility: [facility] Address: [address] [place] [address] Performed By: #### A LLBG ####[facility]ORATORYCLIA [id number] [place] [address] [place] Carboxyhemoglobin (BldA) [Mass fraction] 2.1 % High 0.0-2.0 [facility] Comment on above: Order Comment: Speci men Type: ARTERIAL BLOOD SPECIMENOrdering Facility: [facility] Address: [address] [place] [address] Result Comment: Carb oxyhemoglobin Reference Range for Smokers: 2.0-8.0% Performed By: #### A LLBG ####[facility]ORATORYCLIA [id number] [address] [place] CO2 (Bld) [Partial pressure] 23 mm Hg Low 36-46 [facility] Comment on above: Order Comment: Speci men Type: ARTERIAL BLOOD SPECIMENOrdering Facility: [facility] Address: [address] [place] [address] Performed By: #### A LLBG ####[facility]ORATORYCLIA [id number] [address] [place] CO2 [Moles/Vol] 10 mmol/L Low 22-28 [facility] Comment on above: Order Comment: Speci men Type: ARTERIAL BLOOD SPECIMENOrdering Facility: [facility] Address: [address] [place] [address] Performed By: #### A LLBG ####[facility]ATORYCLIA [id number] [address] [place] CO2 adjusted to patient's actual temperature (Bld) [Partial pressure] 24 mmHg Low 36-46 [facility] Comment on above: Order Comment: Speci men Type: ARTERIAL BLOOD SPECIMENOrdering Facility: [facility] Address: [address] [place] [address] Performed By: #### A LLBG ####[facility]ORATORYCLIA [id number] [address] [place] Glucose [Mass/Vol] 94 mg/dL Normal 60-105 [facility] Comment on above: Order Comment: Speci men Type: ARTERIAL BLOOD SPECIMENOrdering Facility: [facility] Address: [address] [place] [address] Performed By: #### A LLBG ####[facility]ATORYCLIA [id number] [address] [place] HCO3 (Bld) [Moles/Vol] 11 mmol/L Low 22-26 [facility] Comment on above: Order Comment: Speci men Type: ARTERIAL BLOOD SPECIMENOrdering Facility: [facility] Address: [address] [place] [address] Performed By: #### A LLBG ####[facility]ATORYCLIA [id number] [address] [place] Hematocrit (Bld) [Volume fraction] 32.4 % Low 36.0-46.0 [facility] Comment on above: Order Comment: Speci men Type: ARTERIAL BLOOD SPECIMENOrdering Facility: [facility] Address: [address] [place] [address] Performed By: #### A LLBG ####[facility]ATORYCLIA [id number] [address] [place] Hemoglobin (Bld) [Mass/Vol] 10.5 g/dL Low 11.5-15.5 [facility] Comment on above: Order Comment: Speci men Type: ARTERIAL BLOOD SPECIMENOrdering Facility: [facility] Address: [address] [place] [address] Performed By: #### A LLBG ####[facility]ATORYCLIA [id number] [address] [place] Methemoglobin (Bld) [Mass fraction] 1.0 % Normal 0.0-1.5 [facility] Comment on above: Order Comment: Speci men Type: ARTERIAL BLOOD SPECIMENOrdering Facility: [facility] Address: [address] [place] [address] Performed By: #### A LLBG ####[facility]ATORYCLIA [id number] [address] O2 THERAPY RA=Room Air Normal [facility] Comment on above: Order Comment: Speci men Type: ARTERIAL BLOOD SPECIMENOrdering Facility: [facility] Address: [address] [address] Performed By: #### A LLBG ####[facility]ATORYCLIA [id number] [address] Oxygen (Bld) [Partial pressure] 83 mm Hg Low 85-95 [facility] Comment on above: Order Comment: Speci men Type: ARTERIAL BLOOD SPECIMENOrdering Facility: [facility] Address: [address] [place] [address] Performed By: #### A LLBG ####[facility]ATORYCLIA [id number] [address] Oxygen adjusted to patient's actual temperature (Bld) [Partial pressure] 86 mmHg Normal 85-95 [facility] Comment on above: Order Comment: Speci men Type: ARTERIAL BLOOD SPECIMENOrdering Facility: [facility] Address: [address] [place] [address] Performed By: #### A LLBG ####[facility]ATORYCLIA [id number] [address] [place] OXYGEN SATURATION, ARTERIAL 95 % Normal 95-98 [facility] Comment on above: Order Comment: Speci men Type: ARTERIAL BLOOD SPECIMENOrdering Facility: [facility] Address: [address] [place] [address] Performed By: #### A LLBG ####[facility]ATORYCLIA [id number] [address] [place] Oxyhemoglobin (BldA) [Mass fraction] 92 % Low 95-98 [facility] Comment on above: Order Comment: Speci men Type: ARTERIAL BLOOD SPECIMENOrdering Facility: [facility] Address: [address] [place] [address] Performed By: #### A LLBG ####[facility]ORATORYCLIA [id number] [address] [place] pH (Bld) 7.30 [pH] Low 7.35-7.45 [facility] Comment on above: Order Comment: Speci men Type: ARTERIAL BLOOD SPECIMENOrdering Facility: [facility] Address: [address] [place] [address] Performed By: #### A LLBG ####[facility]ORYCLIA [id number] [address] pH adjusted to patient's actual temperature (Bld) 7.29 Low 7.35-7.45 [facility] Comment on above: Order Comment: Speci men Type: ARTERIAL BLOOD SPECIMENOrdering Facility: [facility] Address: [address] [place] [address] Performed By: #### A LLBG ####[facility]ATORYCLIA [id number] [address] [place] Potassium [Moles/Vol] 4.1 mmol/L Normal 3.5-5.0 [facility] Comment on above: Order Comment: Speci men Type: ARTERIAL BLOOD SPECIMENOrdering Facility: [facility] Address: [address] [place] [address] Performed By: #### A LLBG ####[facility]ATORYCLIA [id number] [address] Sodium [Moles/Vol] 139 mmol/L Normal 136-144 [facility] Comment on above: Order Comment: Speci men Type: ARTERIAL BLOOD SPECIMENOrdering Facility: [facility] Address: [address] [place] [address] Performed By: #### A LLBG ####[facility]ATORYCLIA [id number] [place] [address] [place] Ammonia Plas-sCncon 03-30-20 22 Ammonia (P) [Moles/Vol] 21 umol/L Normal 11-51 [facility] Comment on above: Order Comment: Speci men Type: BLOOD SPECIMENOrdering Facility: [facility] Address: [address] [place] [address] Performed By: #### 1 6362-6 ####[facility]ORATORYCLIA [id number] [place] [address] [place] Basic metabolic 2000 panelon 03-30-2022 Anion gap [Moles/Vol] 21 mmol/L High 9-18 [facility] Comment on above: Order Comment: Speci men Type: BLOOD SPECIMENOrdering Facility: [facility] Address: [address] [place] [address] Performed By: #### 3 3959-8, 06141-0, 86949-8, 2156-6, 2776-1 ####[facility]ATORYCLIA [id number] [place] [address] [place] Calcium [Mass/Vol] 8.7 mg/dL Normal 8.5-10.2 [facility] Comment on above: Order Comment: Speci men Type: BLOOD SPECIMENOrdering Facility: [facility] Address: [address] [place] [address] Performed By: #### 3 3959-8, 91134-0, 12644-5, 2157-01, 2776-1 ####[facility]ITALCLIA [id number] [place] [address] [place] Chloride [Moles/Vol] 107 mmol/L High 97-105 [facility] Comment on above: Order Comment: Speci men Type: BLOOD SPECIMENOrdering Facility: [facility] Address: [address] [place] [address] Performed By: #### 3 3959-8, 78558-4, 68352-4, 2157-01, 2776-1 ####[facility]ATORYCLIA [id number] [place] [address] [place] CO2 [Moles/Vol] 11 mmol/L Low 22-30 [facility] Comment on above: Order Comment: Speci men Type: BLOOD SPECIMENOrdering Facility: [facility] Address: [address] [place] [address] Performed By: #### 3 3959-8, 24495-6, 18404-8, 2156-6, 7-1 ####[facility]ATORYCLIA [id number] [address] STATES OF [facility] Creatinine [Mass/Vol] 0.43 mg/dL Low 0.58-0.96 [facility] Comment on above: Order Comment: Lauren santana Type: BLOOD SPECIMENOrdering Facility: [facility] Address: [address] [place], [place] [address] Performed By: #### 3 3959-8, 74399-8, 33023-5, 2156-6, 2776-1 ####[facility]ATORYCLIA [id number] [address] OF [facility] ESTIMATED GLOMERULAR FILTRATION RATE 107 mL/min/1.73m??? Normal >=60 [facility] Comment on above: Order Comment: Lauren santana Type: BLOOD SPECIMENOrdering Facility: [facility] Address: [address] [place] [address] Result Comment: Ameena mated Glomerular Filtration Rate (eGFR) is calculated using the 2020 CKD-EPI creatinine equation. This equation utilizes serum creatinine, sex, and age as parameters. The creatinine assay has traceable calibration to isotope dilution-mass spectrometry. Refer to KDIGO guidelines for clinical interpretation. In patients with unstable renal function, e.g. those with acute kidney injury, the eGFR may not accurately reflect actual GFR. Performed By: #### 3 3959-8, 73369-0, 99232-6, 2156-6, 2776-1 ####[facility]ATORYCLIA [id number] [address] Glucose [Mass/Vol] 90 mg/dL Normal 74-99 [facility] Comment on above: Order Comment: Lauren santana Type: BLOOD SPECIMENOrdering Facility: [facility] Address: [address] [place] [address] Result Comment: The [place] [employer] (ADA) provides guidance for cutoff values for fasting glucose and random glucose. The ADA defines fasting as no caloric intake for at least 8 hours. Fasting plasma glucose results between 100 to 125 mg/dL indicate increased risk for diabetes (prediabetes).Fasting plasma glucose results greater than or equal to 126 mg/dL meet the criteria for diagnosis of diabetes. In the absence of unequivocal hyperglycemia, results should be confirmed by repeat testing. In a patient with classic symptoms of hyperglycemia or hyperglycemic crisis, random plasma glucose results greater than or equal to 200 mg/dL meet the criteria for diagnosis of diabetes.Reference: Standards of Medical Care in Diabetes 2016, [place] [employer]. Diabetes Care. 2016.39(Suppl 1). Performed By: #### 3 3959-8, 33751-0, 86503-4, 2156-6, 7-1 ####[facility]ATORYCLIA [id number] [place] [address] [place] Potassium [Moles/Vol] 4.2 mmol/L Normal 3.7-5.1 [facility] Comment on above: Order Comment: Lauren santana Type: BLOOD SPECIMENOrdering Facility: [facility] Address: [address] [place] [address] Performed By: #### 3 3959-8, 91234-7, 48175-1, 2157-01, 2776-1 ####[facility]ITALCLIA [id number] [address] [place] Sodium [Moles/Vol] 139 mmol/L Normal 136-144 [facility] Comment on above: Order Comment: Lauren santana Type: BLOOD SPECIMENOrdering Facility: [facility] Address: [address] [place] [address] Performed By: #### 3 3959-8, 66491-2, 31209-9, 2156-, 2776-1 ####[facility]ATORYCLIA [id number] [address] STATES [facility] Urea nitrogen [Mass/Vol] 12 mg/dL Normal 7-21 [facility] Comment on above: Order Comment: Lucreciai esther Type: BLOOD SPECIMENOrdering Facility: [facility] Address: [address] [place] [address] Performed By: #### 3 3959-8, 54411-3, 58382-5, 2156-6, 7-1 ####[facility]ATORYCLIA [id number] [place] [address] [place] CBC W Auto Differential pane l (Bld)on 03-30-2022 Basophils (Bld) [#/Vol] 0.03 10*3/uL Normal <0.11 [facility] Comment on above: Order Comment: Speci men Type: BLOOD SPECIMENOrdering Facility: [facility] Address: [address] [place] [address] Performed By: #### 5 7021-8 ####[facility]ATORYCLIA [id number] [address] Basophils/100 WBC (Bld) 0.2 % Normal A [facility] Comment on above: Order Comment: Speci men Type: BLOOD SPECIMENOrdering Facility: [facility] Address: [address] [place] [address] Performed By: #### 5 7021-8 ####[facility]ATORYCLIA [id number] [address] Differential cell count method Nom (Bld) Auto Normal [facility] Comment on above: Order Comment: Speci men Type: BLOOD SPECIMENOrdering Facility: [facility] Address: [address] [place] [address] Performed By: #### 5 7021-8 ####[facility]ORYCLIA [id number] [address] Eosinophils (Bld) [#/Vol] 10*3/uL Normal <0.46 [facility] Comment on above: Order Comment: Speci men Type: BLOOD SPECIMENOrdering Facility: [facility] Address: [address] [address] Performed By: #### 5 7021-8 ####[facility]ATORYCLIA [id number] [address] Eosinophils/100 WBC (Bld) 0.0 % Normal [facility] Comment on above: Order Comment: Speci men Type: BLOOD SPECIMENOrdering Facility: [facility] Address: [address] [place] [address] Performed By: #### 5 7021-8 ####[facility]ATORYCLIA [id number] [address] Erythrocyte distribution width (RBC) [Ratio] 19.4 % High 11.5-15.0 [facility] Comment on above: Order Comment: Speci men Type: BLOOD SPECIMENOrdering Facility: [facility] Address: [address] [place] [address] Performed By: #### 5 7021-8 ####[facility]ATORYCLIA [id number] [address] Hematocrit (Bld) [Volume fraction] 31.4 % Low 36.0-46.0 [facility] Comment on above: Order Comment: Speci men Type: BLOOD SPECIMENOrdering Facility: [facility] Address: [address] [place] [address] Performed By: #### 5 7021-8 ####[facility]ITALCLIA [id number] [address] Hemoglobin (Bld) [Mass/Vol] 10.0 g/dL Low 11.5-15.5 [facility] Comment on above: Order Comment: Speci men Type: BLOOD SPECIMENOrdering Facility: [facility] Address: [address] [place] [address] Performed By: #### 5 7021-8 ####[facility]ATORYCLIA [id number] [address] IMMATURE GRAN % 0.5 % Normal [facility] Comment on above: Order Comment: Speci men Type: BLOOD SPECIMENOrdering Facility: [facility] Address: [address] [place] [address] Performed By: #### 5 7021-8 ####[facility]ATORYCLIA [id number] [address] IMMATURE GRAN ABS 0.07 k/uL Normal <0.10 [facility] Comment on above: Order Comment: Speci men Type: BLOOD SPECIMENOrdering Facility: [facility] Address: [address] [place] [address] Performed By: #### 5 7021-8 ####[facility]ATORYCLIA [id number] [address] STATES OF [facility] Lymphocytes (Bld) [#/Vol] 1.05 10*3/uL Normal 1.00-4.0 0 [facility] Comment on above: Order Comment: Speci men Type: BLOOD SPECIMENOrdering Facility: [facility] Address: [address] [place] [address] Performed By: #### 5 7021-8 ####[facility]ATORYCLIA [id number] [address] Lymphocytes/100 WBC (Bld) 8.2 % Normal [facility] Comment on above: Order Comment: Speci men Type: BLOOD SPECIMENOrdering Facility: [facility] Address: [address] [place] [address] Performed By: #### 5 7021-8 ####[facility]ATORYCLIA [id number] [address] [place] MCH (RBC) [Entitic mass] 30.3 pg Normal 26.0-34.0 [facility] Comment on above: Order Comment: Speci men Type: BLOOD SPECIMENOrdering Facility: [facility] Address: [address] [place] [address] Performed By: #### 5 7021-8 ####[facility]ATORYCLIA [id number] [address] [place] MCHC (RBC) [Mass/Vol] 31.8 g/dL Normal 30.5-36.0 [facility] Comment on above: Order Comment: Speci men Type: BLOOD SPECIMENOrdering Facility: [facility] Address: [address] [place] [address] Performed By: #### 5 7021-8 ####[facility]ATORYCLIA [id number] [address] MCV (RBC) [Entitic vol] 95.2 fL Normal 80.0-100.0 A [facility] Comment on above: Order Comment: Speci men Type: BLOOD SPECIMENOrdering Facility: [facility] Address: [address] [place] [address] Performed By: #### 5 7021-8 ####[facility] LABORATORYCLIA [id number] [place] [address] [place] Monocytes (Bld) [#/Vol] 1.48 10*3/uL High <0.87 [facility] Comment on above: Order Comment: Speci men Type: BLOOD SPECIMENOrdering Facility: [facility] Address: [address] [place] [address] Performed By: #### 5 7021-8 ####[facility]ATORYCLIA [id number] [address] [place] Monocytes/100 WBC (Bld) 11.6 % Normal A [facility] Comment on above: Order Comment: Speci men Type: BLOOD SPECIMENOrdering Facility: [facility] Address: [address] [place] [address] Performed By: #### 5 7021-8 ####[facility]ATORYCLIA [id number] [address] [place] Neutrophils (Bld) [#/Vol] 10.16 10*3/uL High 1.45-7. 50 [facility] Comment on above: Order Comment: Speci men Type: BLOOD SPECIMENOrdering Facility: [facility] Address: [address] [place] [address] Performed By: #### 5 7021-8 ####[facility] LABORATORYCLIA [id number] [address] [place] Neutrophils/100 WBC (Bld) 79.5 % Normal [facility] Comment on above: Order Comment: Speci men Type: BLOOD SPECIMENOrdering Facility: [facility] Address: [address] [place] [address] Performed By: #### 5 7021-8 ####[facility]ATORYCLIA [id number] [address] [place] Nucleated RBC (Bld) [#/Vol] 10*3/uL Normal <0.01 [facility] Comment on above: Order Comment: Speci men Type: BLOOD SPECIMENOrdering Facility: [facility] Address: [address] [place] [address] Performed By: #### 5 7021-8 ####[facility]ORATORYCLIA [id number] [address] [place] Nucleated RBC/100 WBC (Bld) [Ratio] 0.0 /100 WBC Normal [facility] Comment on above: Order Comment: Speci men Type: BLOOD SPECIMENOrdering Facility: [facility] Address: [address] [place] [address] Performed By: #### 5 7021-8 ####[facility]ORATORYCLIA [id number] [address] [place] Platelet mean volume (Bld) [Entitic vol] 8.8 fL Low 9.0-12.7 [facility] Comment on above: Order Comment: Speci men Type: BLOOD SPECIMENOrdering Facility: [facility] Address: [address] [place] [address] Performed By: #### 5 7021-8 ####[facility]ATORYCLIA [id number] [address] [place] Platelets (Bld) [#/Vol] 302 10*3/uL Normal 150-400 [facility] Comment on above: Order Comment: Speci men Type: BLOOD SPECIMENOrdering Facility: [facility] Address: [address] [place] [address] Performed By: #### 5 7021-8 ####[facility]ATORYCLIA [id number] [address] [place] RBC (Bld) [#/Vol] 3.30 10*6/uL Low 3.90-5.20 [facility] Comment on above: Order Comment: Speci men Type: BLOOD SPECIMENOrdering Facility: [facility] Address: [address] [place] [address] Performed By: #### 5 7021-8 ####[facility]ORATORYCLIA [id number] [address] OF [facility] WBC (Bld) [#/Vol] 12.79 10*3/uL High 3.70-11.00 [facility] Comment on above: Order Comment: Speci men Type: BLOOD SPECIMENOrdering Facility: [facility] Address: [address] [place] [address] Performed By: #### 5 7021-8 ####[facility]ORATORYCLIA [id number] [address] [place] CK SerPl-cCncon 03-30-2022 CK [Catalytic activity/Vol] 41 U/L Low 42-196 [facility] Comment on above: Order Comment: Speci men Type: BLOOD SPECIMENOrdering Facility: [facility] Address: [address] [place] [address] Performed By: #### 3 3959-8, 18747-2, 04586-0, 2157-6, 2777-1 ####[facility]ORATORYCLIA [id number] [address] OF [facility] Comprehensive metabolic 2000 panelon 03-30-2022 Albumin [Mass/Vol] 4.0 g/dL Normal 3.9-4.9 [facility] Comment on above: Order Comment: Speci men Type: BLOOD SPECIMENOrdering Facility: [facility] Address: [address] [place] [address] Performed By: #### 2 4323-8, 2777-1, 70883-0 ####[facility]ORATORYCLIA [id number] [address] ALP [Catalytic activity/Vol] 73 U/L Normal 34-123 [facility] Comment on above: Order Comment: Speci men Type: BLOOD SPECIMENOrdering Facility: [facility] Address: [address] [place], [place] [id number] Performed By: #### 2 4323-8, 27702-15, ####[facility]ORATORYCLIA [id number] [address] STATES OF [facility] ALT With P-5'-P [Catalytic activity/Vol] 9 U/L Normal 7-38 [facility] Comment on above: Order Comment: Speci men Type: BLOOD SPECIMENOrdering Facility: [facility] Address: [address] [place] [address] Performed By: #### 2 4323-8, 2776-08, ####[facility]ORATORYCLIA [id number] [address] OF [facility] Anion gap [Moles/Vol] 19 mmol/L High 9-18 [facility] Comment on above: Order Comment: Speci men Type: BLOOD SPECIMENOrdering Facility: [facility] Address: [address] [place] [address] Performed By: #### 2 4323-8, 2776-08, ####[facility]ORATORYCLIA [id number] [address] AST With P-5'-P [Catalytic activity/Vol] 9 U/L Low 13-35 [facility] Comment on above: Order Comment: Speci men Type: BLOOD SPECIMENOrdering Facility: [facility] Address: [address] [place] [address] Performed By: #### 2 4323-8, 2776-08, ####[facility]ATORYCLIA [id number] [address] STATES OF [facility] Bilirubin [Mass/Vol] 0.4 mg/dL Normal 0.2-1.3 [facility] Comment on above: Order Comment: Speci men Type: BLOOD SPECIMENOrdering Facility: [facility] Address: [address] [place] [address] Performed By: #### 2 4323-8, 27702-15, ####[facility] LABORATORYCLIA [id number] [place] [address] [place] Calcium [Mass/Vol] 8.3 mg/dL Low 8.5-10.2 [facility] Comment on above: Order Comment: Speci men Type: BLOOD SPECIMENOrdering Facility: [facility] Address: [address] [place] [address] Performed By: #### 2 4323-8, 2776-08, ####[facility] LABORATORYCLIA [id number] [place] [address] [place] Chloride [Moles/Vol] 103 mmol/L Normal 97-105 [facility] Comment on above: Order Comment: Speci men Type: BLOOD SPECIMENOrdering Facility: [facility] Address: [address] [place] [address] Performed By: #### 2 4323-8, 2776-08, ####[facility]ATORYCLIA [id number] [address] [place] CO2 [Moles/Vol] 16 mmol/L Low 22-30 [facility] Comment on above: Order Comment: Speci men Type: BLOOD SPECIMENOrdering Facility: [facility] Address: [address] [place] [address] Performed By: #### 2 4323-8, 2776-08, ####[facility]ORATORYCLIA [id number] [place] [address] [place] Creatinine [Mass/Vol] 0.37 mg/dL Low 0.58-0.96 [facility] Comment on above: Order Comment: Speci men Type: BLOOD SPECIMENOrdering Facility: [facility] Address: [address] [place] [address] Performed By: #### 2 4323-8, 2776-08, ####[facility]ATORYCLIA [id number] [address] [place] ESTIMATED GLOMERULAR FILTRATION RATE 111 mL/min/1.73m??? Normal >=60 [facility] Comment on above: Order Comment: Lauren santana Type: BLOOD SPECIMENOrdering Facility: [facility] Address: [address] [place] [address] Result Comment: Ameena mated Glomerular Filtration Rate (eGFR) is calculated using the 2020 CKD-EPI creatinine equation. This equation utilizes serum creatinine, sex, and age as parameters. The creatinine assay has traceable calibration to isotope dilution-mass spectrometry. Refer to KDIGO guidelines for clinical interpretation. In patients with unstable renal function, e.g. those with acute kidney injury, the eGFR may not accurately reflect actual GFR. Performed By: #### 2 4323-8, 2777-1, 58006-1 ####[facility]ITALCLIA [id number] [place] [address] [place] Glucose [Mass/Vol] 94 mg/dL Normal 74-99 [facility] Comment on above: Order Comment: Lauren santana Type: BLOOD SPECIMENOrdering Facility: [facility] Address: [address] [place] [address] Result Comment: The [place] Diabetes Association (ADA) provides guidance for cutoff values for fasting glucose and random glucose. The ADA defines fasting as no caloric intake for at least 8 hours. Fasting plasma glucose results between 100 to 125 mg/dL indicate increased risk for diabetes (prediabetes).Fasting plasma glucose results greater than or equal to 126 mg/dL meet the criteria for diagnosis of diabetes. In the absence of unequivocal hyperglycemia, results should be confirmed by repeat testing. In a patient with classic symptoms of hyperglycemia or hyperglycemic crisis, random plasma glucose results greater than or equal to 200 mg/dL meet the criteria for diagnosis of diabetes.Reference: Standards of Medical Care in Diabetes 2016, [place] [employer] Association. Diabetes Care. 2016.39(Suppl 1). Performed By: #### 2 4323-8, 2777-, 24750-5 ####[facility]ATORYCLIA [id number] [place] [id number] [place] Potassium [Moles/Vol] 3.6 mmol/L Low 3.7-5.1 [facility] Comment on above: Order Comment: Lauren [facility] Type: BLOOD SPECIMENOrdering Facility: [facility] Address: [address] [place], [place] [address] Performed By: #### 2 4323-8, 2776-08, ####[facility] LABORATORYCLIA [id number] [address] [place] Protein [Mass/Vol] 6.3 g/dL Normal 6.3-8.0 [facility] Comment on above: Order Comment: Speci men Type: BLOOD SPECIMENOrdering Facility: [facility] Address: [address] [place] [address] Performed By: #### 2 4323-8, 2776-08, ####[facility]ORYCLIA [id number] [address] [place] Sodium [Moles/Vol] 138 mmol/L Normal 136-144 [facility] Comment on above: Order Comment: Speci men Type: BLOOD SPECIMENOrdering Facility: [facility] Address: [address] [place] [address] Performed By: #### 2 4323-8, 2776-08, ####[facility]ATORYCLIA [id number] [address] [place] Urea nitrogen [Mass/Vol] 10 mg/dL Normal 7-21 [facility] Comment on above: Order Comment: Speci men Type: BLOOD SPECIMENOrdering Facility: [facility] Address: [address] [place] [address] Performed By: #### 2 4323-8, 2776-08, ####[facility]ATORYCLIA [id number] [place] [address] [place] Hepatic function 2000 panelo n 03-30-2022 Albumin [Mass/Vol] 4.0 g/dL Normal 3.9-4.9 [facility] Comment on above: Order Comment: Speci men Type: BLOOD SPECIMENOrdering Facility: [facility] Address: [address] [place] [address] Performed By: #### 3 3959-8, 06263-6, 28556-1, 7-6, 2777-1 ####[facility]ATORYCLIA [id number] [address] STATES [facility] ALP [Catalytic activity/Vol] 76 U/L Normal 34-123 [facility] Comment on above: Order Comment: Speci men Type: BLOOD SPECIMENOrdering Facility: [facility] Address: [address] [place] [address] Performed By: #### 3 3959-8, 74391-2, 30688-3, 2156-6, 7-1 ####[facility]ATORYCLIA [id number] [address] OF [facility] ALT With P-5'-P [Catalytic activity/Vol] 8 U/L Normal 7-38 [facility] Comment on above: Order Comment: Speci men Type: BLOOD SPECIMENOrdering Facility: [facility] Address: [address] [place] [address] Performed By: #### 3 3959-8, 77829-3, 74774-4, 2156-6, 2777-1 ####[facility]ATORYCLIA [id number] [address] STATES OF [facility] AST With P-5'-P [Catalytic activity/Vol] 13 U/L Normal 13-35 [facility] Comment on above: Order Comment: Speci men Type: BLOOD SPECIMENOrdering Facility: [facility] Address: [address] [place] [address] Performed By: #### 3 3959-8, 51718-7, 86947-8, 2156-6, 2777-1 ####[facility]ATORYCLIA [id number] [address] OF [facility] Bilirubin [Mass/Vol] 0.4 mg/dL Normal 0.2-1.3 [facility] Comment on above: Order Comment: Speci men Type: BLOOD SPECIMENOrdering Facility: [facility] Address: [address] [place] [address] Performed By: #### 3 3959-8, 85458-6, 21827-0, 2156-6, 2777-1 ####[facility]ATORYCLIA [id number] [address] [place] Bilirubin.conjugated [Mass/Vol] mg/dL Normal <0.2 [facility] Comment on above: Order Comment: Speci men Type: BLOOD SPECIMENOrdering Facility: [facility] Address: [address] [place] [address] Performed By: #### 3 3959-8, 59995-2, 37918-8, 2156-6, 2777-1 ####[facility]ATORYCLIA [id number] [address] [place] Protein [Mass/Vol] 6.9 g/dL Normal 6.3-8.0 [facility] Comment on above: Order Comment: Speci men Type: BLOOD SPECIMENOrdering Facility: [facility] Address: [address] [place] [address] Performed By: #### 3 3959-8, 93976-8, 93157-8, 2156-6, 2777-1 ####[facility]ATORYCLIA [id number] [address] [place] Lactate (Bld) [Moles/Vol]on 03-30-2022 Lactate [Moles/Vol] 0.8 mmol/L Normal 0.5-2.2 [facility] Comment on above: Order Comment: Speci men Type: BLOOD SPECIMENOrdering Facility: [facility] Address: [address] [place] [address] Performed By: #### 3 2693-4 ####[facility]ATORYCLIA [id number] [place] [address] [place] Magnesium SerPl-mCncon 03-30 Magnesium [Mass/Vol] 2.0 mg/dL Normal 1.7-2.3 [facility] Comment on above: Order Comment: Speci men Type: BLOOD SPECIMENOrdering Facility: [facility] Address: [facility] [place] [address] Performed By: #### 2 4323-8, 2777-1, 63824-2 ####[facility]ATORYCLIA [id number] [place] [id number] [place] NUTRITIONon 03-30-2022 NUTRITION Normal [facility] PT panel Coag (PPP)on 2021 INR Coag (PPP) [Relative time] 1.0 {INR} Normal 0.9-1.3 [facility] Comment on above: Order Comment: Speci men Type: BLOOD SPECIMENOrdering Facility: [facility] Address: [address] Result Comment: Sariah min K Antagonist (VKA) Therapeutic Range: INR 2 to 3 (Target INR of 2.5)Note: For patients treated with VKA drugs, such as warfarin, the [place] [employer] 2012 Guideline recommends a therapeutic INR range of 2 to 3 (target INR of 2.5). This recommendation includes high-risk patients with antiphospholipid syndrome with previous arterial or venous thromboembolism, current-generation mechanical or bioprosthetic aortic heart valve replacement.Note: Patients with mechanical aortic valve replacement and additional risk factors for thromboembolic events (atrial fibrillation, previous thromboembolism, LV dysfunction, hypercoagulable conditions) or an older generation mechanical AVR (i.e., ball in-Cage) or any mechanical MVR should have a INR therapeutic range of 2.5 to 3.5 (target INR of 3).Rosales GH, et al. Chest 2012, 141:7S-47SNishimura RA, et al. [facility] 2017, 70: 252-289 Performed By: #### 1 4979-9, 62772-7 ####[facility]ATORYCLIA [id number] [address] [place] PT Coag (PPP) [Time] 11.4 s Normal 9.7-13.0 [facility] Comment on above: Order Comment: Speci men Type: BLOOD SPECIMENOrdering Facility: [facility] Address: [address] Performed By: #### 1 4979-9, 66619-8 ####[facility]ATORYCLIA [id number] [address] [place] Phosphate SerPl-mCncon 03-30 Phosphate [Mass/Vol] 3.1 mg/dL Normal 2.7-4.8 [facility] Comment on above: Order Comment: Speci men Type: BLOOD SPECIMENOrdering Facility: [facility] Address: [address] [place] [address] Performed By: #### 3 3959-8, 76648-1, 71416-9, 2156-6, 2776-1 ####[facility]ATORYCLIA [id number] [address] STATES [facility] Phosphate [Mass/Vol] 1.9 mg/dL Low 2.7-4.8 [facility] Comment on above: Order Comment: Speci men Type: BLOOD SPECIMENOrdering Facility: [facility] Address: [address] [place] [address] Performed By: #### 2 4323-8, 2777-1, 36600-2 ####[facility]ITALCLIA [id number] [address] Procalcitonin SerPl-mCncon 0 03-30-2022 Procalcitonin [Mass/Vol] 0.15 ng/mL High <0.09 [facility] Comment on above: Order Comment: Speci men Type: BLOOD SPECIMENOrdering Facility: [facility] Address: [address] [place] [address] Result Comment: For a guided interpretation of test results, please visit the Change in Procalcitonin Calculator, [email or web address]. Performed By: #### 3 3959-8, 09960-7, 47877-2, 2156-6, 7-1 ####[facility]ORYCLIA [id number] [address] [place] THERAPY NTon 03-30-2022 THERAPY NT Normal [facility] Urinalysis complete panel (U )on 03-30-2022 Bilirubin Ql (U) Negative Normal Negative [facility] Comment on above: Order Comment: Speci men Type: URINE SPECIMENOrdering Facility: [facility] Address: [address] [place] [address] Performed By: #### 2 4356-8 ####[facility]ATORYCLIA [id number] [address] Clarity (Unsp spec) Clear Normal Clear [facility] Comment on above: Order Comment: Speci men Type: URINE SPECIMENOrdering Facility: [facility] Address: [address] [place] [address] Performed By: #### 2 4356-8 ####[facility]ATORYCLIA [id number] [address] Color (U) Colorless Normal yellow [facility] Comment on above: Order Comment: Speci men Type: URINE SPECIMENOrdering Facility: [facility] Address: [address] [place] [address] Performed By: #### 2 4356-8 ####[facility]ATORYCLIA [id number] [address] Epithelial cells LM.HPF (Urine sed) [#/Area] Few Normal [facility] Comment on above: Order Comment: Speci men Type: URINE SPECIMENOrdering Facility: [facility] Address: [address] [place] [address] Result Comment: Few Performed By: #### 2 4356-8 ####[facility]ATORYCLIA [id number] [address] Glucose Test strip (U) [Mass/Vol] 4+ Abnormal Negative [facility] Comment on above: Order Comment: Speci men Type: URINE SPECIMENOrdering Facility: [facility] Address: [address] [place] [address] Performed By: #### 2 4356-8 ####[facility]ATORYCLIA [id number] [address] [place] Hemoglobin Ql (U) Trace Abnormal Negative [facility] Comment on above: Order Comment: Speci men Type: URINE SPECIMENOrdering Facility: [facility] Address: [address] [place] [address] Performed By: #### 2 4356-8 ####[facility] LABORATORYCLIA [id number] [address] STATES [facility] Ketones Ql (U) 4+ Abnormal Negative [facility] Comment on above: Order Comment: Speci men Type: URINE SPECIMENOrdering Facility: [facility] Address: [address] [place] [address] Performed By: #### 2 4356-8 ####[facility]ATORYCLIA [id number] [address] Leukocyte esterase Test strip Ql (U) Negative Normal Negative [facility] Comment on above: Order Comment: Speci men Type: URINE SPECIMENOrdering Facility: [facility] Address: [address] [place] [address] Performed By: #### 2 4356-8 ####[facility]ATORYCLIA [id number] [address] Nitrite Ql (U) Negative Normal Negative [facility] Comment on above: Order Comment: Speci men Type: URINE SPECIMENOrdering Facility: [facility] Address: [address] [place] [address] Performed By: #### 2 4356-8 ####[facility]ATORYCLIA [id number] [address] [place] pH (U) 5.5 [pH] Normal 5.0-8.0 [facility] Comment on above: Order Comment: Speci men Type: URINE SPECIMENOrdering Facility: [facility] Address: [address] [place] [address] Performed By: #### 2 4356-8 ####[facility]ORATORYCLIA [id number] [address] [place] Protein (U) [Mass/Vol] Trace Abnormal Negative [facility] Comment on above: Order Comment: Speci men Type: URINE SPECIMENOrdering Facility: [facility] Address: [address] [place] [address] Performed By: #### 2 4356-8 ####[facility]ATORYCLIA [id number] [address] STATES [facility] RBC LM.HPF (Urine sed) [#/Area] 0-3 /HPF Normal 0-3 /HPF [facility] Comment on above: Order Comment: Speci men Type: URINE SPECIMENOrdering Facility: [facility] Address: [address] [place] [address] Performed By: #### 2 4356-8 ####[facility]ATORYCLIA [id number] [address] Specific gravity (U) [Rel density] 1.021 Normal 1.005-1.030 [facility] Comment on above: Order Comment: Speci men Type: URINE SPECIMENOrdering Facility: [facility] Address: [address] [place] [address] Performed By: #### 2 4356-8 ####[facility]ORYCLIA [id number] [address] Urobilinogen Ql (U) Normal Normal Negative [facility] Comment on above: Order Comment: Speci men Type: URINE SPECIMENOrdering Facility: [facility] Address: [address] [place] [address] Performed By: #### 2 4356-8 ####[facility]ATORYCLIA [id number] [address] WBC LM.HPF (Urine sed) [#/Area] 0-5 /HPF Normal 0-5 /HPF [facility] Comment on above: Order Comment: Speci men Type: URINE SPECIMENOrdering Facility: [facility] Address: [address] [place] [address] Performed By: #### 2 4356-8 ####[facility]ORATORYCLIA [id number] [address] OF [facility] XR ABDOMEN 1V SUPINEon 03-30 XR ABDOMEN 1V SUPINE Normal [facility] XR ABDOMEN 1V SUPINE Normal [facility] XR CHEST 1V FRONTALon 2021 XR CHEST 1V FRONTAL Normal [facility] aPTT PPPon 03-30-2022 aPTT Coag (PPP) [Time] 31.9 s Normal 23.0-32.4 [facility] Comment on above: Order Comment: Speci men Type: BLOOD SPECIMENOrdering Facility: [facility] Address: [address] [place] [address] Performed By: #### 1 4979-9, 62824-4 ####[facility]ORATORYCLIA [id number] [address] OF [facility] ALLIED HEALTHon 03-29-2022 ALLIED HEALTH Normal [facility] CBC W Auto Differential pane l (Bld)on 03-29-2022 Basophils (Bld) [#/Vol] 10*3/uL Normal <0.11 [facility] Comment on above: Order Comment: Speci men Type: BLOOD SPECIMENOrdering Facility: [facility] Address: [address] [place] [address] Performed By: #### 5 7021-8 ####[facility]ATORYCLIA [id number] [address] Basophils/100 WBC (Bld) 0.1 % Normal A [facility] Comment on above: Order Comment: Speci men Type: BLOOD SPECIMENOrdering Facility: [facility] Address: [address] [place] [address] Performed By: #### 5 7021-8 ####[facility]ATORYCLIA [id number] [address] Differential cell count method Nom (Bld) Auto Normal [facility] Comment on above: Order Comment: Speci men Type: BLOOD SPECIMENOrdering Facility: [facility] Address: [address] [place] [address] Performed By: #### 5 7021-8 ####[facility]ORATORYCLIA [id number] [address] [place] Eosinophils (Bld) [#/Vol] 10*3/uL Normal <0.46 [facility] Comment on above: Order Comment: Speci men Type: BLOOD SPECIMENOrdering Facility: [facility] Address: [address] [place] [address] Performed By: #### 5 7021-8 ####[facility]ORATORYCLIA [id number] [address] Eosinophils/100 WBC (Bld) 0.1 % Normal [facility] Comment on above: Order Comment: Speci men Type: BLOOD SPECIMENOrdering Facility: [facility] Address: [address] [place] [address] Performed By: #### 5 7021-8 ####[facility]ORATORYCLIA [id number] [address] Erythrocyte distribution width (RBC) [Ratio] 18.8 % High 11.5-15.0 [facility] Comment on above: Order Comment: Speci men Type: BLOOD SPECIMENOrdering Facility: [facility] Address: [address] [place] [address] Performed By: #### 5 7021-8 ####[facility]ORATORYCLIA [id number] [address] Hematocrit (Bld) [Volume fraction] 32.5 % Low 36.0-46.0 [facility] Comment on above: Order Comment: Speci men Type: BLOOD SPECIMENOrdering Facility: [facility] Address: [address] [place] [address] Performed By: #### 5 7021-8 ####[facility]ORATORYCLIA [id number] [address] [place] Hemoglobin (Bld) [Mass/Vol] 9.9 g/dL Low 11.5-15.5 [facility] Comment on above: Order Comment: Speci men Type: BLOOD SPECIMENOrdering Facility: [facility] Address: [address] [place] [address] Performed By: #### 5 7021-8 ####[facility]ORATORYCLIA [id number] [address] IMMATURE GRAN % 0.5 % Normal [facility] Comment on above: Order Comment: Speci men Type: BLOOD SPECIMENOrdering Facility: [facility] Address: [address] [place] [address] Performed By: #### 5 7021-8 ####[facility]ORATORYCLIA [id number] [address] IMMATURE GRAN ABS 0.07 k/uL Normal <0.10 [facility] Comment on above: Order Comment: Speci men Type: BLOOD SPECIMENOrdering Facility: [facility] Address: [address] [place] [address] Performed By: #### 5 7021-8 ####[facility]ORATORYCLIA [id number] [address] Lymphocytes (Bld) [#/Vol] 1.04 10*3/uL Normal 1.00-4.0 0 [facility] Comment on above: Order Comment: Speci men Type: BLOOD SPECIMENOrdering Facility: [facility] Address: [address] [place] [address] Performed By: #### 5 7021-8 ####[facility]ORATORYCLIA [id number] [address] Lymphocytes/100 WBC (Bld) 7.7 % Normal [facility] Comment on above: Order Comment: Speci men Type: BLOOD SPECIMENOrdering Facility: [facility] Address: [address] [place] [address] Performed By: #### 5 7021-8 ####[facility]ORATORYCLIA [id number] [address] MCH (RBC) [Entitic mass] 29.6 pg Normal 26.0-34.0 [facility] Comment on above: Order Comment: Speci men Type: BLOOD SPECIMENOrdering Facility: [facility] Address: [address] [place] [address] Performed By: #### 5 7021-8 ####[facility]ORATORYCLIA [id number] [address] MCHC (RBC) [Mass/Vol] 30.5 g/dL Normal 30.5-36.0 [facility] Comment on above: Order Comment: Speci men Type: BLOOD SPECIMENOrdering Facility: [facility] Address: [address] [place] [address] Performed By: #### 5 7021-8 ####[facility]ORATORYCLIA [id number] [address] OF [facility] MCV (RBC) [Entitic vol] 97.0 fL Normal 80.0-100.0 [facility] Comment on above: Order Comment: Speci men Type: BLOOD SPECIMENOrdering Facility: [facility] Address: [address] [place] [address] Performed By: #### 5 7021-8 ####[facility]ATORYCLIA [id number] [address] Monocytes (Bld) [#/Vol] 0.95 10*3/uL High <0.87 [facility] Comment on above: Order Comment: Speci men Type: BLOOD SPECIMENOrdering Facility: [facility] Address: [address] [place] [address] Performed By: #### 5 7021-8 ####[facility]ATORYCLIA [id number] [address] Monocytes/100 WBC (Bld) 7.0 % Normal [facility] Comment on above: Order Comment: Speci men Type: BLOOD SPECIMENOrdering Facility: [facility] Address: [address] [place] [address] Performed By: #### 5 7021-8 ####[facility] LABORATORYCLIA [id number] [place] [address] [place] Neutrophils (Bld) [#/Vol] 11.47 10*3/uL High 1.45-7. 50 [facility] Comment on above: Order Comment: Speci men Type: BLOOD SPECIMENOrdering Facility: [facility] Address: [address] [place] [address] Performed By: #### 5 7021-8 ####[facility] LABORATORYCLIA [id number] [address] [place] Neutrophils/100 WBC (Bld) 84.6 % Normal [facility] Comment on above: Order Comment: Speci men Type: BLOOD SPECIMENOrdering Facility: [facility] Address: [address] [place] [address] Performed By: #### 5 7021-8 ####[facility] LABORATORYCLIA [id number] [address] [place] Nucleated RBC (Bld) [#/Vol] 10*3/uL Normal <0.01 [facility] Comment on above: Order Comment: Speci men Type: BLOOD SPECIMENOrdering Facility: [facility] Address: [address] [place] [address] Performed By: #### 5 7021-8 ####[facility] LABORATORYCLIA [id number] [address] [place] Nucleated RBC/100 WBC (Bld) [Ratio] 0.0 /100 WBC Normal [facility] Comment on above: Order Comment: Speci men Type: BLOOD SPECIMENOrdering Facility: [facility] Address: [address] [place] [address] Performed By: #### 5 7021-8 ####[facility] LABORATORYCLIA [id number] [address] [place] Platelet mean volume (Bld) [Entitic vol] 9.0 fL Normal 9.0-12.7 [facility] Comment on above: Order Comment: Speci men Type: BLOOD SPECIMENOrdering Facility: [facility] Address: [address] [place] [address] Performed By: #### 5 7021-8 ####[facility] LABORATORYCLIA [id number] [address] Platelets (Bld) [#/Vol] 342 10*3/uL Normal 150-400 [facility] Comment on above: Order Comment: Speci men Type: BLOOD SPECIMENOrdering Facility: [facility] Address: [address] [place] [address] Performed By: #### 5 7021-8 ####[facility] LABORATORYCLIA [id number] [address] OF [facility] RBC (Bld) [#/Vol] 3.35 10*6/uL Low 3.90-5.20 [facility] Comment on above: Order Comment: Speci men Type: BLOOD SPECIMENOrdering Facility: [facility] Address: [address] [place] [address] Performed By: #### 5 7021-8 ####[facility] LABORATORYCLIA [id number] [address] OF [facility] WBC (Bld) [#/Vol] 13.56 10*3/uL High 3.70-11.00 [facility] Comment on above: Order Comment: Speci men Type: BLOOD SPECIMENOrdering Facility: [facility] Address: [address] [place] [address] Performed By: #### 5 7021-8 ####[facility] LABORATORYCLIA [id number] [address] BRAIN WO IVCONon 03-29-20 CT BRAIN WO IVCON Normal [facility] Comprehensive metabolic 2000 panelon 03-29-2022 Albumin [Mass/Vol] 4.2 g/dL Normal 3.9-4.9 [facility] Comment on above: Order Comment: Speci men Type: BLOOD SPECIMENOrdering Facility: [facility] Address: [address] [place] [address] Performed By: #### 1 9123-9, 59910-4, 277- ####[facility] LABORATORYCLIA [id number] [address] ALP [Catalytic activity/Vol] 79 U/L Normal 34-123 [facility] Comment on above: Order Comment: Speci men Type: BLOOD SPECIMENOrdering Facility: [facility] Address: [address] [place] [address] Performed By: #### 1 9123-9, 70266-7, 2776- ####[facility] LABORATORYCLIA [id number] [address] ALT With P-5'-P [Catalytic activity/Vol] 10 U/L Normal 7-38 [facility] Comment on above: Order Comment: Speci men Type: BLOOD SPECIMENOrdering Facility: [facility] Address: [address] [place] [address] Performed By: #### 1 9123-9, 17740-9, 2776- ####[facility] LABORATORYCLIA [id number] [address] Anion gap [Moles/Vol] 15 mmol/L Normal 9-18 [facility] Comment on above: Order Comment: Speci men Type: BLOOD SPECIMENOrdering Facility: [facility] Address: [address] [place] [address] Performed By: #### 1 9123-9, 40477-0, 2776- ####[facility] LABORATORYCLIA [id number] [address] AST With P-5'-P [Catalytic activity/Vol] 11 U/L Low 13-35 [facility] Comment on above: Order Comment: Speci men Type: BLOOD SPECIMENOrdering Facility: [facility] Address: [address] [place] [address] Performed By: #### 1 9123-9, 67023-7, 277- ####[facility] LABORATORYCLIA [id number] [place] [address] [place] Bilirubin [Mass/Vol] 0.2 mg/dL Normal 0.2-1.3 [facility] Comment on above: Order Comment: Speci men Type: BLOOD SPECIMENOrdering Facility: [facility] Address: [address] [place] [address] Performed By: #### 1 9123-9, 98499-8, 2777- ####[facility] LABORATORYCLIA [id number] [place] [address] [place] Calcium [Mass/Vol] 7.9 mg/dL Low 8.5-10.2 [facility] Comment on above: Order Comment: Speci men Type: BLOOD SPECIMENOrdering Facility: [facility] Address: [address] [place] [address] Performed By: #### 1 9123-9, 01136-9, 277- ####[facility] LABORATORYCLIA [id number] [place] [address] [place] Chloride [Moles/Vol] 101 mmol/L Normal 97-105 [facility] Comment on above: Order Comment: Speci men Type: BLOOD SPECIMENOrdering Facility: [facility] Address: [address] [place] [address] Performed By: #### 1 9123-9, 58319-2, 277- ####[facility] LABORATORYCLIA [id number] [place] [address] [place] CO2 [Moles/Vol] 22 mmol/L Normal 22-30 [facility] Comment on above: Order Comment: Speci men Type: BLOOD SPECIMENOrdering Facility: [facility] Address: [address] [place] [address] Performed By: #### 1 9123-9, 83746-0, 2777-1 ####[facility] LABORATORYCLIA [id number] [place] [address] [place] Creatinine [Mass/Vol] 0.39 mg/dL Low 0.58-0.96 [facility] Comment on above: Order Comment: Lauren santana Type: BLOOD SPECIMENOrdering Facility: [facility] Address: [address] [id number] Performed By: #### 1 9123-9, 26758-0, 2777-1 ####[facility] LABORATORYCLIA [id number] [place] [id number] [place] ESTIMATED GLOMERULAR FILTRATION RATE 109 mL/min/1.73m??? Normal >=60 [facility] Comment on above: Order Comment: Lauren santana Type: BLOOD SPECIMENOrdering Facility: [facility] Address: [address] [address] Result Comment: Ameena mated Glomerular Filtration Rate (eGFR) is calculated using the 2020 CKD-EPI creatinine equation. This equation utilizes serum creatinine, sex, and age as parameters. The creatinine assay has traceable calibration to isotope dilution-mass spectrometry. Refer to KDIGO guidelines for clinical interpretation. In patients with unstable renal function, e.g. those with acute kidney injury, the eGFR may not accurately reflect actual GFR. Performed By: #### 1 9123-9, 88944-4, 2777-1 ####[facility] LABORATORYCLIA [id number] [place] [address] [place] Glucose [Mass/Vol] 113 mg/dL High 74-99 [facility] Comment on above: Order Comment: Lauren santana Type: BLOOD SPECIMENOrdering Facility: [facility] Address: [address] [address] Result Comment: The [place] [employer] (ADA) provides guidance for cutoff values for fasting glucose and random glucose. The ADA defines fasting as no caloric intake for at least 8 hours. Fasting plasma glucose results between 100 to 125 mg/dL indicate increased risk for diabetes (prediabetes).Fasting plasma glucose results greater than or equal to 126 mg/dL meet the criteria for diagnosis of diabetes. In the absence of unequivocal hyperglycemia, results should be confirmed by repeat testing. In a patient with classic symptoms of hyperglycemia or hyperglycemic crisis, random plasma glucose results greater than or equal to 200 mg/dL meet the criteria for diagnosis of diabetes.Reference: Standards of Medical Care in Diabetes 2016, [place] [employer]. Diabetes Care. 2016.39(Suppl 1). Performed By: #### 1 9123-9, 55956-3, 2777-1 ####[facility] LABORATORYCLIA [id number] [place] [address] [place] Potassium [Moles/Vol] 3.4 mmol/L Low 3.7-5.1 [facility] Comment on above: Order Comment: Speci men Type: BLOOD SPECIMENOrdering Facility: [facility] Address: [address] [place] [address] Performed By: #### 1 9123-9, 47700-4, 277- ####[facility] LABORATORYCLIA [id number] [place] [address] [place] Protein [Mass/Vol] 6.4 g/dL Normal 6.3-8.0 [facility] Comment on above: Order Comment: Speci men Type: BLOOD SPECIMENOrdering Facility: [facility] Address: [address] [place] [address] Performed By: #### 1 9123-9, 46647-0, 277- ####[facility] LABORATORYCLIA [id number] [address] [place] Sodium [Moles/Vol] 138 mmol/L Normal 136-144 [facility] Comment on above: Order Comment: Speci men Type: BLOOD SPECIMENOrdering Facility: [facility] Address: [address] [place] [address] Performed By: #### 1 9123-9, 33142-3, 277- ####[facility] LABORATORYCLIA [id number] [place] [address] [place] Urea nitrogen [Mass/Vol] 8 mg/dL Normal 7-21 [facility] Comment on above: Order Comment: Speci men Type: BLOOD SPECIMENOrdering Facility: [facility] Address: [address] [place] [address] Performed By: #### 1 9123-9, 10618-0, 2777- ####[facility] LABORATORYCLIA [id number] [place] [address] [place] Magnesium SerPl-mCncon 03-29 Magnesium [Mass/Vol] 1.5 mg/dL Low 1.7-2.3 [facility] Comment on above: Order Comment: Lauren santana Type: BLOOD SPECIMENOrdering Facility: [facility] Address: [address] [place] [address] Performed By: #### 1 9123-9, 23877-6, 2777-1 ####[facility] [id number] [address] NURSING PROGon 03-29-2022 NURSING PROG Normal [facility] PT panel Coag (PPP)on 2021 INR Coag (PPP) [Relative time] 1.0 {INR} Normal 0.9-1.3 [facility] Comment on above: Order Comment: Lauren santana Type: BLOOD SPECIMENOrdering Facility: [facility] Address: [address] [place] [address] Result Comment: Sariah min K Antagonist (VKA) Therapeutic Range: INR 2 to 3 (Target INR of 2.5)Note: For patients treated with VKA drugs, such as warfarin, the [place] [employer] 2012 Guideline recommends a therapeutic INR range of 2 to 3 (target INR of 2.5). This recommendation includes high-risk patients with antiphospholipid syndrome with previous arterial or venous thromboembolism, current-generation mechanical or bioprosthetic aortic heart valve replacement.Note: Patients with mechanical aortic valve replacement and additional risk factors for thromboembolic events (atrial fibrillation, previous thromboembolism, LV dysfunction, hypercoagulable conditions) or an older generation mechanical AVR (i.e., ball in-Cage) or any mechanical MVR should have a INR therapeutic range of 2.5 to 3.5 (target INR of 3).Rosales GH, et al. Chest 2012, 141:7S-47SNishgonzalo RA, et al. [facility] 2017, 70: 252-289 Performed By: #### 3 4528-0, 90299-3 ####[facility] LABORATORYCLIA [id number] [address] PT Coag (PPP) [Time] 11.4 s Normal 9.7-13.0 [facility] Comment on above: Order Comment: Speci men Type: BLOOD SPECIMENOrdering Facility: [facility] Address: [address] [place] [address] Performed By: #### 3 4528-0, 98167-6 ####[facility] LABORATORYCLIA [id number] [address] [place] Phosphate SerPl-mCncon 03-29 Phosphate [Mass/Vol] 3.2 mg/dL Normal 2.7-4.8 [facility] Comment on above: Order Comment: Speci men Type: BLOOD SPECIMENOrdering Facility: [facility] Address: [address] [place] [address] Performed By: #### 1 9123-9, 50972-9, 2777-1 ####[facility] LABORATORYCLIA [id number] [address] THERAPY NTon 03-29-2022 THERAPY NT Normal [facility] THERAPY NT Normal [facility] THERAPY NT Normal [facility] aPTT PPPon 03-29-2022 aPTT Coag (PPP) [Time] 29.0 s Normal 23.0-32.4 [facility] Comment on above: Order Comment: Speci men Type: BLOOD SPECIMENOrdering Facility: [facility] Address: [address] [place] [address] Performed By: #### 3 4528-0, 47762-8 ####[facility] LABORATORYCLIA [id number] [address] [place] ANES POSTPROC EVALon 022 ANES POSTPROC EVAL Normal [facility] ANES PRE-OPon 03-28-2022 ANES PRE-OP Normal [facility] Absolute lymphocyte counton 03-28-2022 Lymphocytes Auto (Unsp spec) [#/Vol] 2.37 10*3/uL 0.83-4.51 [facility] Work Phone: Basophil percentageon 2021 Basophils/100 WBC (Bld) 0.3 % 0-1 [facility] Work Phone: Chloride [Moles/Vol] 112 mmol/L 98-107 [facility] Work Phone: Eosinophils/100 WBC (Bld) 0.8 % 0-5 [facility] Work Phone: [phone] Glucose [Mass/Vol] 143 mg/dL 74-106 [facility] Work Phone: Comment on above: Fasting Glucose resu lt greater than or equal to 126 mg/dL suggests DIABETES MELLITUS per A.D.A. criteria. Neutrophils (Bld) [#/Vol] 8.3 10*3/uL 2.0-7.7 [facility] Work Phone: [phone] Neutrophils/100 WBC (Bld) 69.4 % 47-70 [facility] Work Phone: [phone] Potassium [Moles/Vol] 4.0 mmol/L 3.5-5.1 [facility] Work Phone: Sodium [Moles/Vol] 142 mmol/L 136-145 [facility] Work Phone: WBC (Bld) [#/Vol] 12.0 10*3/uL 4.4-11.0 [facility] Work Phone: Blood erythrocytes count (nu mber/volume)on 03-28-2022 RBC (Bld) [#/Vol] 3.94 10*6/uL 4.2-5.4 [facility] Work Phone: Blood hemoglobin measurement (mass/volume)on 03-28-2022 Hemoglobin (Bld) [Mass/Vol] 11.9 g/dL 12.0-15.0 [facility] Work Phone: [phone] Blood lymphocytes/100 leukoc yteson 03-28-2022 Lymphocytes/100 WBC (Bld) 19.8 % 19-41 [facility] Work Phone: Blood monocytes/100 leukocyt eson 03-28-2022 Monocytes/100 WBC (Bld) 8.5 % 0-10 [facility] Work Phone: Blood platelet mean volumeon 03-28-2022 Platelet mean volume (Bld) [Entitic vol] 8.7 fL 6.2-12.0 [facility] Work Phone: CBC W Auto Differential pane l (Bld)on 03-28-2022 Basophils (Bld) [#/Vol] 0.05 10*3/uL Normal <0.11 [facility] Comment on above: Order Comment: Speci men Type: BLOOD SPECIMENOrdering Facility: [facility] Address: [address] [address] Performed By: #### 5 7021-8 ####[facility] LABORATORYCLIA [id number] [place] [address] [place] Basophils/100 WBC (Bld) 0.3 % Normal A [facility] Comment on above: Order Comment: Speci men Type: BLOOD SPECIMENOrdering Facility: [facility] Address: [address] [place] [address] Performed By: #### 5 7021-8 ####[facility] LABORATORYCLIA [id number] [place] [address] [place] Differential cell count method Nom (Bld) Auto Normal [facility] Comment on above: Order Comment: Speci men Type: BLOOD SPECIMENOrdering Facility: [facility] Address: [address] [address] Performed By: #### 5 7021-8 ####[facility] LABORATORYCLIA [id number] [place] [address] [place] Eosinophils (Bld) [#/Vol] 10*3/uL Normal <0.46 [facility] Comment on above: Order Comment: Speci men Type: BLOOD SPECIMENOrdering Facility: [facility] Address: [address] [address] Performed By: #### 5 7021-8 ####[facility]ORATORYCLIA [id number] [address] [place] Eosinophils/100 WBC (Bld) 0.1 % Normal [facility] Comment on above: Order Comment: Speci men Type: BLOOD SPECIMENOrdering Facility: [facility] Address: [address] [place] [address] Performed By: #### 5 7021-8 ####[facility]ORATORYCLIA [id number] [address] [place] Erythrocyte distribution width (RBC) [Ratio] 18.6 % High 11.5-15.0 [facility] Comment on above: Order Comment: Speci men Type: BLOOD SPECIMENOrdering Facility: [facility] Address: [address] [place] [address] Performed By: #### 5 7021-8 ####[facility]ORATORYCLIA [id number] [address] Hematocrit (Bld) [Volume fraction] 38.0 % Normal 36.0-46.0 [facility] Comment on above: Order Comment: Speci men Type: BLOOD SPECIMENOrdering Facility: [facility] Address: [address] [place] [address] Performed By: #### 5 7021-8 ####[facility] LABORATORYCLIA [id number] [address] [place] Hemoglobin (Bld) [Mass/Vol] 11.8 g/dL Normal 11.5-15.5 [facility] Comment on above: Order Comment: Speci men Type: BLOOD SPECIMENOrdering Facility: [facility] Address: [address] [place] [address] Performed By: #### 5 7021-8 ####[facility]ORATORYCLIA [id number] [address] IMMATURE GRAN % 1.0 % Normal [facility] Comment on above: Order Comment: Speci men Type: BLOOD SPECIMENOrdering Facility: [facility] Address: [address] [address] Performed By: #### 5 7021-8 ####[facility]ORATORYCLIA [id number] [address] IMMATURE GRAN ABS 0.17 k/uL High <0.10 [facility] Comment on above: Order Comment: Speci men Type: BLOOD SPECIMENOrdering Facility: [facility] Address: [address] [place] [address] Performed By: #### 5 7021-8 ####[facility]ORATORYCLIA [id number] [address] Lymphocytes (Bld) [#/Vol] 1.23 10*3/uL Normal 1.00-4.0 0 [facility] Comment on above: Order Comment: Speci men Type: BLOOD SPECIMENOrdering Facility: [facility] Address: [address] [place] [address] Performed By: #### 5 7021-8 ####[facility]ORATORYCLIA [id number] [address] Lymphocytes/100 WBC (Bld) 7.2 % Normal [facility] Comment on above: Order Comment: Speci men Type: BLOOD SPECIMENOrdering Facility: [facility] Address: [address] [place] [address] Performed By: #### 5 7021-8 ####[facility]ORATORYCLIA [id number] [address] MCH (RBC) [Entitic mass] 29.9 pg Normal 26.0-34.0 [facility] Comment on above: Order Comment: Speci men Type: BLOOD SPECIMENOrdering Facility: [facility] Address: [address] [place] [address] Performed By: #### 5 7021-8 ####[facility] LABORATORYCLIA [id number] [address] MCHC (RBC) [Mass/Vol] 31.1 g/dL Normal 30.5-36.0 [facility] Comment on above: Order Comment: Speci men Type: BLOOD SPECIMENOrdering Facility: [facility] Address: [address] [place] [address] Performed By: #### 5 7021-8 ####[facility]ORATORYCLIA [id number] [address] [place] MCV (RBC) [Entitic vol] 96.4 fL Normal 80.0-100.0 A [facility] Comment on above: Order Comment: Speci men Type: BLOOD SPECIMENOrdering Facility: [facility] Address: [address] [place] [address] Performed By: #### 5 7021-8 ####[facility]ORATORYCLIA [id number] [address] [place] Monocytes (Bld) [#/Vol] 0.97 10*3/uL High <0.87 [facility] Comment on above: Order Comment: Speci men Type: BLOOD SPECIMENOrdering Facility: [facility] Address: [address] [place] [address] Performed By: #### 5 7021-8 ####[facility] LABORATORYCLIA [id number] [address] Monocytes/100 WBC (Bld) 5.7 % Normal A [facility] Comment on above: Order Comment: Speci men Type: BLOOD SPECIMENOrdering Facility: [facility] Address: [address] [place] [address] Performed By: #### 5 7021-8 ####[facility] LABORATORYCLIA [id number] [address] [place] Neutrophils (Bld) [#/Vol] 14.71 10*3/uL High 1.45-7. 50 [facility] Comment on above: Order Comment: Speci men Type: BLOOD SPECIMENOrdering Facility: [facility] Address: [address] [place] [address] Performed By: #### 5 7021-8 ####[facility]ORATORYCLIA [id number] [address] Neutrophils/100 WBC (Bld) 85.7 % Normal [facility] Comment on above: Order Comment: Speci men Type: BLOOD SPECIMENOrdering Facility: [facility] Address: [address] [address] Performed By: #### 5 7021-8 ####[facility]ORATORYCLIA [id number] [address] [place] Nucleated RBC (Bld) [#/Vol] 10*3/uL Normal <0.01 [facility] Comment on above: Order Comment: Speci men Type: BLOOD SPECIMENOrdering Facility: [facility] Address: [address] [place] [address] Performed By: #### 5 7021-8 ####[facility] LABORATORYCLIA [id number] [address] Nucleated RBC/100 WBC (Bld) [Ratio] 0.0 /100 WBC Normal [facility] Comment on above: Order Comment: Speci men Type: BLOOD SPECIMENOrdering Facility: [facility] Address: [address] [place] [address] Performed By: #### 5 7021-8 ####[facility]ORATORYCLIA [id number] [address] [place] Platelet mean volume (Bld) [Entitic vol] 9.2 fL Normal 9.0-12.7 [facility] Comment on above: Order Comment: Speci men Type: BLOOD SPECIMENOrdering Facility: [facility] Address: [address] [address] Performed By: #### 5 7021-8 ####[facility]ORATORYCLIA [id number] [address] [place] Platelets (Bld) [#/Vol] 362 10*3/uL Normal 150-400 [facility] Comment on above: Order Comment: Speci men Type: BLOOD SPECIMENOrdering Facility: [facility] Address: [address] [place] [address] Performed By: #### 5 7021-8 ####[facility]ORATORYCLIA [id number] [address] RBC (Bld) [#/Vol] 3.94 10*6/uL Normal 3.90-5.20 [facility] Comment on above: Order Comment: Speci men Type: BLOOD SPECIMENOrdering Facility: [facility] Address: [address] [place] [address] Performed By: #### 5 7021-8 ####[facility]ORATORYCLIA [id number] [address] WBC (Bld) [#/Vol] 17.15 10*3/uL High 3.70-11.00 [facility] Comment on above: Order Comment: Speci men Type: BLOOD SPECIMENOrdering Facility: [facility] Address: [address] [place] [address] Performed By: #### 5 7021-8 ####[facility] LABORATORYCLIA [id number] [address] CONSULTon 03-28-2022 CONSULT Normal [facility] CT BRAIN WO IVCONon 03-28-[address] BRAIN WO IVCON Normal [facility] [facility] Calcium.ionized [Moles/Vol]o n 03-28-2022 Calcium.ionized (BldV) [Mass/Vol] 1.08 mmol/L Normal 1.08-1.30 [facility] Comment on above: Order Comment: Speci men Type: BLOOD SPECIMENOrdering Facility: [facility] Address: [address] [place] [address] Performed By: #### 1 995-0 ####[facility] LABORATORYCLIA [id number] [address] Calcium.ionized adjusted to pH 7.4 (Bld) [Moles/Vol] 1.02 mmol/L Low 1.08-1.30 [facility] Comment on above: Order Comment: Speci men Type: BLOOD SPECIMENOrdering Facility: [facility] Address: [address] [place] [address] Performed By: #### 1 995-0 ####[facility]ORATORYCLIA [id number] [address] Comprehensive metabolic 2000 panelon 03-28-2022 Albumin [Mass/Vol] 4.8 g/dL Normal 3.9-4.9 [facility] Comment on above: Order Comment: Speci men Type: BLOOD SPECIMENOrdering Facility: [facility] Address: [address] [place] [address] Performed By: #### 1 9123-9, 2777-1, 57503-3 ####[facility] LABORATORYCLIA [id number] [address] OF [facility] ALP [Catalytic activity/Vol] 89 U/L Normal 34-123 [facility] Comment on above: Order Comment: Speci men Type: BLOOD SPECIMENOrdering Facility: [facility] Address: [address] [place] [address] Performed By: #### 1 9123-9, 2777-1, 46922-4 ####[facility] LABORATORYCLIA [id number] [address] ALT With P-5'-P [Catalytic activity/Vol] 12 U/L Normal 7-38 [facility] Comment on above: Order Comment: Speci men Type: BLOOD SPECIMENOrdering Facility: [facility] Address: [address] [place] [address] Performed By: #### 1 9123-9, 2777-1, 37822-9 ####[facility]ORATORYCLIA [id number] [address] Anion gap [Moles/Vol] 14 mmol/L Normal 9-18 [facility] Comment on above: Order Comment: Speci men Type: BLOOD SPECIMENOrdering Facility: [facility] Address: [address] [place] [address] Performed By: #### 1 9123-9, 2776-08, 60259-1 ####[facility]ORATORYCLIA [id number] [place] [address] [place] AST With P-5'-P [Catalytic activity/Vol] 12 U/L Low 13-35 [facility] Comment on above: Order Comment: Speci men Type: BLOOD SPECIMENOrdering Facility: [facility] Address: [address] [place] [address] Performed By: #### 1 9123-9, 2776-08, ####[facility]ORATORYCLIA [id number] [place] [address] [place] Bilirubin [Mass/Vol] 0.2 mg/dL Normal 0.2-1.3 [facility] Comment on above: Order Comment: Speci men Type: BLOOD SPECIMENOrdering Facility: [facility] Address: [address] [place] [address] Performed By: #### 1 9123-9, 2776-08, ####[facility] LABORATORYCLIA [id number] [place] [address] [place] Calcium [Mass/Vol] 8.7 mg/dL Normal 8.5-10.2 [facility] Comment on above: Order Comment: Speci men Type: BLOOD SPECIMENOrdering Facility: [facility] Address: [address] [place] [address] Performed By: #### 1 9123-9, 2776-08, 85443-6 ####[facility]ORATORYCLIA [id number] [place] [address] [place] Chloride [Moles/Vol] 103 mmol/L Normal 97-105 [facility] Comment on above: Order Comment: Speci men Type: BLOOD SPECIMENOrdering Facility: [facility] Address: [address] [place] [address] Performed By: #### 1 9123-9, 27702-15, 16724-7 ####[facility]ORATORYCLIA [id number] [address] STATES OF [facility] CO2 [Moles/Vol] 21 mmol/L Low 22-30 [facility] Comment on above: Order Comment: Speci men Type: BLOOD SPECIMENOrdering Facility: [facility] Address: [address] [place] [address] Performed By: #### 1 9123-9, 2777-1, 03626-9 ####[facility] LABORATORYCLIA [id number] [address] OF [facility] Creatinine [Mass/Vol] 0.40 mg/dL Low 0.58-0.96 [facility] Comment on above: Order Comment: Speci men Type: BLOOD SPECIMENOrdering Facility: [facility] Address: [address] [place] [address] Performed By: #### 1 9123-9, 27702-15, 00877-9 ####[facility] LABORATORYCLIA [id number] [address] ESTIMATED GLOMERULAR FILTRATION RATE 109 mL/min/1.73m??? Normal >=60 [facility] Comment on above: Order Comment: Speci men Type: BLOOD SPECIMENOrdering Facility: [facility] Address: [address] [place] [address] Result Comment: Ameena mated Glomerular Filtration Rate (eGFR) is calculated using the 2020 CKD-EPI creatinine equation. This equation utilizes serum creatinine, sex, and age as parameters. The creatinine assay has traceable calibration to isotope dilution-mass spectrometry. Refer to KDIGO guidelines for clinical interpretation. In patients with unstable renal function, e.g. those with acute kidney injury, the eGFR may not accurately reflect actual GFR. Performed By: #### 1 9123-9, 2777-, 20355-2 ####[facility]ORATORYCLIA [id number] [address] [place] Glucose [Mass/Vol] 187 mg/dL High 74-99 [facility] Comment on above: Order Comment: Speci men Type: BLOOD SPECIMENOrdering Facility: [facility] Address: [address] [place] [address] Result Comment: The [place] Diabetes Association (ADA) provides guidance for cutoff values for fasting glucose and random glucose. The ADA defines fasting as no caloric intake for at least 8 hours. Fasting plasma glucose results between 100 to 125 mg/dL indicate increased risk for diabetes (prediabetes).Fasting plasma glucose results greater than or equal to 126 mg/dL meet the criteria for diagnosis of diabetes. In the absence of unequivocal hyperglycemia, results should be confirmed by repeat testing. In a patient with classic symptoms of hyperglycemia or hyperglycemic crisis, random plasma glucose results greater than or equal to 200 mg/dL meet the criteria for diagnosis of diabetes.Reference: Standards of Medical Care in Diabetes 2016, [place] [employer] Association. Diabetes Care. 2016.39(Suppl 1). Performed By: #### 1 9123-9, 2777-, 74509-5 ####[facility]ORATORYCLIA [id number] [place] [address] [place] Potassium [Moles/Vol] 4.0 mmol/L Normal 3.7-5.1 [facility] Comment on above: Order Comment: [facility] Type: BLOOD SPECIMENOrdering Facility: [facility] Address: [address] [address] Performed By: #### 1 9123-9, 2777, 27032-5 ####[facility]NAPOLISIA [id number] [place] [address] [place] Protein [Mass/Vol] 7.2 g/dL Normal 6.3-8.0 [facility] Comment on above: Order Comment: Speci men Type: BLOOD SPECIMENOrdering Facility: [facility] Address: [address] Performed By: #### 1 9123-9, 2777, 79100-2 ####[facility]ORATORYCLIA [id number] [place] [address] [place] Sodium [Moles/Vol] 138 mmol/L Normal 136-144 [facility] Comment on above: Order Comment: Lucreciai men Type: BLOOD SPECIMENOrdering Facility: [facility] Address: [address] Performed By: #### 1 9123-9, 2777-1, 84468-4 ####[facility] LABORATORYCLIA [id number] [place] [address] [place] [facility] Urea nitrogen [Mass/Vol] 9 mg/dL Normal 7-21 [facility] Comment on above: Order Comment: Speci men Type: BLOOD SPECIMENOrdering Facility: [facility] Address: [facility] [place] [address] Performed By: #### 1 9123-9, 2777-1, 22851-1 ####[facility]ORATORYCLIA [id number] [place] [address] [facility] Determination of erythrocyte mean corpuscular volume (MCV)on 03-28-2022 MCV (RBC) [Entitic vol] 98.0 fL 81-99 [facility] Work Phone: ED NOTEon 03-28-2022 ED NOTE HNO ID: [id number] Author: Savana Sotelo RN Service: ? Author Type: Registered Nurse Type: ED Notes Filed: 03/28/2022 1:12 PM Note Text: Normal [facility] ED NOTE HNO ID: [id number] Author: Isreal Sow RN Service: ? Author Type: Registered Nurse Type: ED Notes Filed: 03/28/2022 12:51 PM Note Text: Bed: [address] [place] [address] Expected date: Expected time: Means of arrival: Comments: ADRI[place] - SDH Normal [facility] ED PROV NOTEon 03-28-2022 ED PROV NOTE Normal [facility] Erythrocyte sedimentation ra coco 03-28-2022 ESR (Bld) [Velocity] 21 mm/h 0-30 [facility] Work Phone: HISTORY PHYSICALon 2 HISTORY PHYSICAL Normal [facility] Hematocrit Auto (Bld) [Volum e fraction]on 03-28-2022 Hematocrit (Bld) [Volume fraction] 38.6 % 37-47 [facility] Work Phone: INR in Blood by Coagulation assayon 03-28-2022 INR Coag (Bld) [Relative time] 1.0 {INR} [facility] Work Phone: Laboratory - Chemistry and C hemistry - challengeon 03-28-2022 CO2 [Moles/Vol] 23.0 mmol/L 21.0-32.0 [facility] Work Phone: [phone] Urea nitrogen/Creatinine [Mass ratio] 21.3 mg/mg 10-20 [facility] Work Phone: Laboratory - Coagulationon 0 03-28-2022 aPTT Coag (Bld) [Time] 35.1 s 24.1-36.2 [facility] Work Phone: [phone] PT Coag (PPP) [Time] 12.7 s 11.7-14.9 [facility] Work Phone: Laboratory - Hematology and Cell countson 03-28-2022 Anisocytosis Ql (Bld) 1+ [facility] Work Phone: Erythrocyte distribution width (RBC) [Entitic vol] 65.8 fL 35.1-43.9 [facility] Work Phone: Erythrocyte distribution width (RBC) [Ratio] 18.6 % 11.6-14.6 [facility] Work Phone: Immature granulocytes/100 WBC (Bld) 1.200 % 0.0-0.9 [facility] Work Phone: Comment on above: IG% - Immature Granu locytes (promyelocytes, myelocytes and metamyelocytes) > 1% indicates that a LEFT SHIFT is Present. MCH (RBC) [Entitic mass] 30.2 pg 27.0-32.0 [facility] Work Phone: Nucleated RBC/100 WBC (Bld) [Ratio] 0 % 0-5 [facility] Work Phone: MCHC Auto (RBC) [Mass/Vol]on 03-28-2022 MCHC (RBC) [Mass/Vol] 30.8 g/dL 32-36 [facility] Work Phone: Magnesium SerPl-mCncon 03-28 Magnesium [Mass/Vol] 1.6 mg/dL Low 1.7-2.3 [facility] Comment on above: Order Comment: Lauren santana Type: BLOOD SPECIMENOrdering Facility: [facility] Address: [address] [place] [phone] Performed By: #### 1 9123-9, 2777-1, 51890-3 ####[facility]ORATORYCLIA [id number] [address] Microorganism Spec Culton Microorganism identified Cx Nom (Unsp spec) CULTURE, MRSA SCREEN: Negative for methicillin resistant Staphylococcus aureus Normal [facility] Comment on above: Performed By: #### 1 1475-1 ####[facility]ORATORYCLIA [id number] [address] [place] No Panel Informationon 03-28 Estimated Creatinine Clearance Calc 43.18 ml/min [facility] Work Phone: Estimated GFR (MDRD) Amer 138 mL/min >60 [facility] Work Phone: Comment on above: GFR Calc Estimated GFR (MDRD) Non-Af Amer 114 mL/min >60 [facility] Work Phone: Comment on above: Non- GFR Calc OPERATIVE NOon 03-28-2022 OPERATIVE NO Normal [facility] PT panel Coag (PPP)on 2021 INR Coag (PPP) [Relative time] 1.0 {INR} Normal 0.9-1.3 [facility] Comment on above: Order Comment: Lucreciai esther Type: BLOOD SPECIMENOrdering Facility: [facility] Address: [address] [place] [phone] Result Comment: Sariah min K Antagonist (VKA) Therapeutic Range: INR 2 to 3 (Target INR of 2.5)Note: For patients treated with VKA drugs, such as warfarin, the [place] [employer] 2012 Guideline recommends a therapeutic INR range of 2 to 3 (target INR of 2.5). This recommendation includes high-risk patients with antiphospholipid syndrome with previous arterial or venous thromboembolism, current-generation mechanical or bioprosthetic aortic heart valve replacement.Note: Patients with mechanical aortic valve replacement and additional risk factors for thromboembolic events (atrial fibrillation, previous thromboembolism, LV dysfunction, hypercoagulable conditions) or an older generation mechanical AVR (i.e., ball in-Cage) or any mechanical MVR should have a INR therapeutic range of 2.5 to 3.5 (target INR of 3).Rosales GH, et al. Chest 2012, 141:7S-47SNishimura RA, et al. [facility] 2017, 70: 252-289 Performed By: #### 3 4528-0, 09623-4 ####[facility]ITALCLIA [id number] [place] [address] [place] PT Coag (PPP) [Time] 10.8 s Normal 9.7-13.0 [facility] Comment on above: Order Comment: Lauren santana Type: BLOOD SPECIMENOrdering Facility: [facility] Address: [address] [place], [place] [address] Performed By: #### 3 4528-0, 31691-5 ####[facility]ITALCLIA [id number] [place] [address] [place] Phosphate SerPl-mCncon 03-28 Phosphate [Mass/Vol] 3.0 mg/dL Normal 2.7-4.8 [facility] Comment on above: Order Comment: Lauren santana Type: BLOOD SPECIMENOrdering Facility: [facility] Address: [address] [place] [phone] Performed By: #### 1 9123-9, 2777-1, 37652-9 ####[facility]ORATORYCLIA [id number] [place] [address] [place] Platelets bldon 03-28-2022 Platelets (Bld) [#/Vol] 332 10*3/uL 150-450 [facility] Work Phone: SARS-CoV-2 RNA Resp Ql NADEEM+p robeon 03-28-2022 SARS-CoV-2 (COVID-19) RNA NADEEM+probe Ql (Resp) COVID 19 RESULT: SARS-CoV-2 (Agent of COVID-19) Not Detected by RT-PCR or equivalent method. This test has been authorized by FDA under an Emergency Use Authorization (EUA). Normal [facility] Comment on above: Performed By: #### 9 4500-6 ####[facility] LABORATORYCLIA [id number] [address] SURGICAL PATHOLOGYon 022 CASE REPORT Normal [facility] Comment on above: Order Comment: Speci men Type: BLOOD CLOT SAMPLEOrdering Facility: [facility] Address: [address] [place] [address] Result Comment: Surg ical Pathology Report Case: [id number] Provider: Bryce Greer MD Collected: 03/28/2022 04:34 PMOrdering Location: [place] [facility] Received: 03/29/2022 08:17 AMPathologist: JANAE Franklinpecimen: CLOT (DO NOT USE FOR BONE MARROW), RIGHT SUBDURAL HEMATOMA Performed By: #### S ####[facility] LABORATORYCLIA [id number] [address] FINAL DIAGNOSIS [facility] Comment on above: Order Comment: Speci men Type: BLOOD CLOT SAMPLEOrdering Facility: [facility] Address: [address] [place] [address] Result Comment: A. R ight subdural hematoma, evacuation:-- Fragments of blood clot. Performed By: #### S ####[facility]ORATORYCLIA [id number] [address] FINAL PERFORMING LAB Normal [facility] Comment on above: Order Comment: Speci men Type: BLOOD CLOT SAMPLEOrdering Facility: [facility] Address: [address] [place] [address] Result Comment: Diag nostic interpretation performed at [facility], [address] [place] [address] CLIA# [id number] Director: Dave Ramirez M.D. Performed By: #### S ####[facility] LABORATORYCLIA [id number] [place] [id number] [place] GROSS DESCRIPTION Normal [facility] Comment on above: Order Comment: Speci men Type: BLOOD CLOT SAMPLEOrdering Facility: [facility] Address: [address] [place] [phone] Result Comment: A. C LOT (DO NOT USE FOR BONE MARROW)A. Received in formalin with right subdural hematoma are multiple red-brown hemorrhagic segments of material consistent with thrombus aggregating to 12.0 x 8.1 x 3.7 cm. Steel Layout Worker sections are submitted in formalin in 2 cassettes. Gross examination performed at [facility], [address] [place], [place] [address]KVB April 01, 2022 8:23 AM Performed By: #### S ####[facility]ORATORYCLIA [id number] [place] [address] [place] Serum or plasma calcium joaquin urement (mass/volume)on 03-28-2022 Calcium [Mass/Vol] 9.3 mg/dL 8.5-10.1 [facility] Work Phone: Serum or plasma creatinine m easurement (mass/volume)on 03-28-2022 Creatinine [Mass/Vol] 0.56 mg/dL 0.55-1.02 [facility] Work Phone: Comment on above: The validity of the calculated GFR & GFRAA in patients over 70 years has not been determined. Clinical correlation is essential. Serum or plasma urea nitroge n measurement (mass/volume)on 03-28-2022 Urea nitrogen [Mass/Vol] 12 mg/dL 7-18 [facility] Work Phone: TYPE + SCREENon 03-28-2022 ABO A Normal [facility] Comment on above: Order Comment: Speci men Type: BLOOD SPECIMENOrdering Facility: [facility] Address: [address] [address] Performed By: #### T SCR ####[facility] BLOOD BANKCLIA [id number] [address] HISTORICAL AB SCR STATUS Negative Normal [facility] Comment on above: Order Comment: Speci men Type: BLOOD SPECIMENOrdering Facility: [facility] Address: [address] [place] [address] Performed By: #### T SCR ####[facility] BLOOD BANKCLIA [id number] [address] [place] Rh Nom (Bld) Positive Normal [facility] Comment on above: Order Comment: Speci men Type: BLOOD SPECIMENOrdering Facility: [facility] Address: [address] [place] [address] Performed By: #### T SCR ####[facility] BLOOD BANKCLIA [id number] [address] TYPE AND SCREEN EXPIRATION 03/31/2022 23:59 Normal [facility] Comment on above: Order Comment: Speci men Type: BLOOD SPECIMENOrdering Facility: [facility] Address: [address] [place] [address] Performed By: #### T SCR ####[facility] BLOOD BANKCLIA [id number] [address] OF [facility] Thin prep Papanicolaou smear with manual screeningon 03-28-2022 Thin prep Papanicolaou smear with manual screening 7 5-15 [facility] Work Phone: aPTT PPPon 03-28-2022 aPTT Coag (PPP) [Time] 27.4 s Normal 23.0-32.4 [facility] Comment on above: Order Comment: Speci men Type: BLOOD SPECIMENOrdering Facility: [facility] Address: [address] [place] [address] Performed By: #### 3 4528-0, 00755-3 ####[facility] LABORATORYCLIA [id number] [address] [place] CNOVon 03-12-2022 CNOV Normal [facility] Absolute lymphocyte counton 03-04-2022 Lymphocytes Auto (Unsp spec) [#/Vol] 1.96 10*3/uL 0.83-4.51 [facility] Work Phone: Basophil percentageon 2021 Basophils/100 WBC (Bld) 0.3 % 0-1 [facility] Work Phone: Eosinophils/100 WBC (Bld) 1.4 % 0-5 [facility] Work Phone: Neutrophils (Bld) [#/Vol] 6.6 10*3/uL 2.0-7.7 [facility] Work Phone: Neutrophils/100 WBC (Bld) 69.4 % 47-70 [facility] Work Phone: WBC (Bld) [#/Vol] 9.4 10*3/uL 4.4-11.0 [facility] Work Phone: Blood erythrocytes count (nu mber/volume)on 03-04-2022 RBC (Bld) [#/Vol] 3.76 10*6/uL 4.2-5.4 [facility] Work Phone: Blood hemoglobin measurement (mass/volume)on 03-04-2022 Hemoglobin (Bld) [Mass/Vol] 11.7 g/dL 12.0-15.0 [facility] Work Phone: Blood lymphocytes/100 leukoc yteson 03-04-2022 Lymphocytes/100 WBC (Bld) 20.8 % 19-41 [facility] Work Phone: Blood monocytes/100 leukocyt eson 03-04-2022 Monocytes/100 WBC (Bld) 7.6 % 0-10 [facility] Work Phone: Blood platelet mean volumeon 03-04-2022 Platelet mean volume (Bld) [Entitic vol] 9.0 fL 6.2-12.0 [facility] Work Phone: Determination of erythrocyte mean corpuscular volume (MCV)on 03-04-2022 MCV (RBC) [Entitic vol] 94.7 fL 81-99 [facility] Work Phone: Hematocrit Auto (Bld) [Volum e fraction]on 03-04-2022 Hematocrit (Bld) [Volume fraction] 35.6 % 37-47 [facility] Work Phone: Iron measurement (mass/mass) on 03-04-2022 Iron (Unsp spec) [Mass/Mass] 23 ug/dL 50-170 [facility] Work Phone: Laboratory - Hematology and Cell countson 03-04-2022 Erythrocyte distribution width (RBC) [Entitic vol] 56.5 fL 35.1-43.9 [facility] Work Phone: Erythrocyte distribution width (RBC) [Ratio] 16.4 % 11.6-14.6 [facility] Work Phone: [phone] Immature granulocytes/100 WBC (Bld) 0.500 % 0.0-0.9 [facility] Work Phone: [phone] Comment on above: IG% - Immature Granu locytes (promyelocytes, myelocytes and metamyelocytes) > 1% indicates that a LEFT SHIFT is Present. MCH (RBC) [Entitic mass] 31.1 pg 27.0-32.0 [facility] Work Phone: Nucleated RBC/100 WBC (Bld) [Ratio] 0 % 0-5 [facility] Work Phone: MCHC Auto (RBC) [Mass/Vol]on 03-04-2022 MCHC (RBC) [Mass/Vol] 32.9 g/dL 32-36 [facility] Work Phone: No Panel Informationon 03-04 Total Iron Binding Capacity 407 ug/dL 250-450 [facility] Work Phone: [phone] Platelets bldon 03-04-2022 Platelets (Bld) [#/Vol] 267 10*3/uL 150-450 [facility] Work Phone: Serum or plasma ferritin bryce surement (mass/volume)on 03-04-2022 Ferritin [Mass/Vol] 6 ng/mL 8-252 [facility] Work Phone: Serum or plasma iron saturat ion measurement (mass fraction)on 03-04-2022 Iron saturation [Mass fraction] 5.7 % 15.0-55.0 [place] [facility] Work Phone: CNOVon 02-14-2022 CNOV Normal [facility] ANES POSTPROC EVALon 022 ANES POSTPROC EVAL Normal [facility] CASE MANAGEMon 02-04-2022 CASE MANAGEM Normal [facility] CNDSon 02-04-2022 CNDS Normal [facility] CONSULTon 02-03-2022 CONSULT Normal [facility] THERAPY NTon 02-03-2022 THERAPY NT Normal [facility] Basic metabolic 2000 panelon 02-02-2022 Anion gap [Moles/Vol] 9 mmol/L Normal 05-05 [facility] Comment on above: Order Comment: Speci men Type: BLOOD SPECIMENOrdering Facility: [facility] Address: [address] [place] [address] Performed By: #### 1 9123-9, 33196-4, 27702-15 ####[facility] LABORATORYCLIA [id number] [place] [address] [place] Calcium [Mass/Vol] 7.7 mg/dL Low 8.5-10.2 [facility] Comment on above: Order Comment: Speci men Type: BLOOD SPECIMENOrdering Facility: [facility] [facility] Address: [address] [place] [address] Performed By: #### 1 9123-9, 84810-8, 2777- ####[facility]ORATORYCLIA [id number] [place] [address] [place] Chloride [Moles/Vol] 111 mmol/L High 97-105 [facility] Comment on above: Order Comment: Speci men Type: BLOOD SPECIMENOrdering Facility: [facility] Address: [address] [place] [address] Performed By: #### 1 9123-9, 15312-9, 2776-08 ####[facility] [id number] [address] CO2 [Moles/Vol] 22 mmol/L Normal 22-30 [facility] Comment on above: Order Comment: Speci men Type: BLOOD SPECIMENOrdering Facility: [facility] Address: [address] [place] [address] Performed By: #### 1 9123-9, 03789-4, 2776-08 ####[facility]ITALCLIA [id number] [address] Creatinine [Mass/Vol] 0.41 mg/dL Low 0.58-0.96 [facility] Comment on above: Order Comment: Speci men Type: BLOOD SPECIMENOrdering Facility: [facility] Address: [address] [place] [address] Performed By: #### 1 9123-9, 62338-7, 2776-08 ####[facility] [id number] [address] ESTIMATED GLOMERULAR FILTRATION RATE 108 mL/min/1.73m??? Normal >=60 [facility] Comment on above: Order Comment: Speci men Type: BLOOD SPECIMENOrdering Facility: [facility] Address: [address] [place] [address] Result Comment: Ameena mated Glomerular Filtration Rate (eGFR) is calculated using the 2020 CKD-EPI creatinine equation. This equation utilizes serum creatinine, sex, and age as parameters. The creatinine assay has traceable calibration to isotope dilution-mass spectrometry. Refer to KDIGO guidelines for clinical interpretation. In patients with unstable renal function, e.g. those with acute kidney injury, the eGFR may not accurately reflect actual GFR. Performed By: #### 1 9123-9, 34213-8, 2776- ####[facility] LABORATORYCLIA [id number] [place] [address] [place] Glucose [Mass/Vol] 149 mg/dL High 74-99 [facility] Comment on above: Order Comment: Speci men Type: BLOOD SPECIMENOrdering Facility: [facility] Address: [address] [place], [place] [id number] Result Comment: The [place] Diabetes [employer] (ADA) provides guidance for cutoff values for fasting glucose and random glucose. The ADA defines fasting as no caloric intake for at least 8 hours. Fasting plasma glucose results between 100 to 125 mg/dL indicate increased risk for diabetes (prediabetes).Fasting plasma glucose results greater than or equal to 126 mg/dL meet the criteria for diagnosis of diabetes. In the absence of unequivocal hyperglycemia, results should be confirmed by repeat testing. In a patient with classic symptoms of hyperglycemia or hyperglycemic crisis, random plasma glucose results greater than or equal to 200 mg/dL meet the criteria for diagnosis of diabetes.Reference: Standards of Medical Care in Diabetes 2016, [place] [employer]. Diabetes Care. 2016.39(Suppl 1). Performed By: #### 1 9123-9, 22546-3, 2776- ####[facility] LABORATORYCLIA [id number] [place] [address] [place] Potassium [Moles/Vol] 3.8 mmol/L Normal 3.7-5.1 [facility] Comment on above: Order Comment: Lauren santana Type: BLOOD SPECIMENOrdering Facility: [facility] Address: [address] [place], [place] [address] Performed By: #### 1 9123-9, 91318-0, 2776-08 ####[facility] LABORATORYCLIA [id number] [place] [address] [place] Sodium [Moles/Vol] 142 mmol/L Normal 136-144 [facility] Comment on above: Order Comment: Lauren esther Type: BLOOD SPECIMENOrdering Facility: [facility] Address: [address] [place], [place] [address] Performed By: #### 1 9123-9, 99650-6, 277- ####[facility]ORATORYCLIA [id number] [place] [address] [place] Urea nitrogen [Mass/Vol] 13 mg/dL Normal 7-21 [facility] Comment on above: Order Comment: Speci men Type: BLOOD SPECIMENOrdering Facility: [facility] Address: [address] [place] [address] Performed By: #### 1 9123-9, 30723-1, 2777-1 ####[facility] LABORATORYCLIA [id number] [address] STATES OF [facility] CBC panel Auto (Bld)on 02-02 Erythrocyte distribution width (RBC) [Ratio] 15.3 % High 11.5-15.0 [facility] Comment on above: Order Comment: Speci men Type: BLOOD SPECIMENOrdering Facility: [facility] Address: [address] [place] [address] Performed By: #### 5 8410-2 ####[facility] LABORATORYCLIA [id number] [address] OF [facility] Hematocrit (Bld) [Volume fraction] 42.2 % Normal 36.0-46.0 [facility] Comment on above: Order Comment: Speci men Type: BLOOD SPECIMENOrdering Facility: [facility] Address: [address] [place] [address] Performed By: #### 5 8410-2 ####[facility]ORATORYCLIA [id number] [address] [place] Hemoglobin (Bld) [Mass/Vol] 13.0 g/dL Normal 11.5-15.5 [facility] Comment on above: Order Comment: Speci men Type: BLOOD SPECIMENOrdering Facility: [facility] Address: [address] [place] [address] Performed By: #### 5 8410-2 ####[facility]ORATORYCLIA [id number] [address] [place] MCH (RBC) [Entitic mass] 30.1 pg Normal 26.0-34.0 [facility] Comment on above: Order Comment: Speci men Type: BLOOD SPECIMENOrdering Facility: [facility] Address: [address] [place] [address] Performed By: #### 5 8410-2 ####[facility]ORATORYCLIA [id number] [address] STATES [facility] MCHC (RBC) [Mass/Vol] 30.8 g/dL Normal 30.5-36.0 [facility] Comment on above: Order Comment: Speci men Type: BLOOD SPECIMENOrdering Facility: [facility] Address: [address] [place] [address] Performed By: #### 5 8410-2 ####[facility] LABORATORYCLIA [id number] [address] [place] MCV (RBC) [Entitic vol] 97.7 fL Normal 80.0-100.0 [facility] Comment on above: Order Comment: Speci men Type: BLOOD SPECIMENOrdering Facility: [facility] Address: [address] [place] [address] Performed By: #### 5 8410-2 ####[facility]ORATORYCLIA [id number] [address] Nucleated RBC (Bld) [#/Vol] 10*3/uL Normal <0.01 [facility] Comment on above: Order Comment: Speci men Type: BLOOD SPECIMENOrdering Facility: [facility] Address: [address] [place] [address] Performed By: #### 5 8410-2 ####[facility]ORATORYCLIA [id number] [address] Platelet mean volume (Bld) [Entitic vol] 9.4 fL Normal 9.0-12.7 [facility] Comment on above: Order Comment: Speci men Type: BLOOD SPECIMENOrdering Facility: [facility] Address: [address] [place] [address] Performed By: #### 5 8410-2 ####[facility]ORATORYCLIA [id number] [place] [address] [place] Platelets (Bld) [#/Vol] 248 10*3/uL Normal 150-400 [facility] Comment on above: Order Comment: Speci men Type: BLOOD SPECIMENOrdering Facility: [facility] Address: [address] [place] [address] Performed By: #### 5 8410-2 ####[facility]ORATORYCLIA [id number] [place] [address] [place] RBC (Bld) [#/Vol] 4.32 10*6/uL Normal 3.90-5.20 [facility] Comment on above: Order Comment: Speci men Type: BLOOD SPECIMENOrdering Facility: [facility] Address: [address] [place] [address] Performed By: #### 5 8410-2 ####[facility]ORATORYCLIA [id number] [address] WBC (Bld) [#/Vol] 13.80 10*3/uL High 3.70-11.00 [facility] Comment on above: Order Comment: Speci men Type: BLOOD SPECIMENOrdering Facility: [facility] Address: [address] [place] [address] Performed By: #### 5 8410-2 ####[facility] LABORATORYCLIA [id number] [address] OF [place] Magnesium SerPl-mCncon 02-02 Magnesium [Mass/Vol] 1.7 mg/dL Normal 1.7-2.3 [facility] Comment on above: Order Comment: Speci men Type: BLOOD SPECIMENOrdering Facility: [facility] Address: [address] [place] [address] Performed By: #### 1 9123-9, 65267-1, 2777-1 ####[facility]ORATORYCLIA [id number] [address] [place] NURSING PROGon 02-02-2022 NURSING PROG Normal [facility] PT panel Coag (PPP)on 2021 INR Coag (PPP) [Relative time] 1.0 {INR} Normal 0.9-1.3 [facility] Comment on above: Order Comment: Lauren santana Type: BLOOD SPECIMENOrdering Facility: [facility] Address: [address] [place], [place] [id number] Result Comment: Sariah min K Antagonist (VKA) Therapeutic Range: INR 2 to 3 (Target INR of 2.5)Note: For patients treated with VKA drugs, such as warfarin, the [place] [employer] 2012 Guideline recommends a therapeutic INR range of 2 to 3 (target INR of 2.5). This recommendation includes high-risk patients with antiphospholipid syndrome with previous arterial or venous thromboembolism, current-generation mechanical or bioprosthetic aortic heart valve replacement.Note: Patients with mechanical aortic valve replacement and additional risk factors for thromboembolic events (atrial fibrillation, previous thromboembolism, LV dysfunction, hypercoagulable conditions) or an older generation mechanical AVR (i.e., ball in-Cage) or any mechanical MVR should have a INR therapeutic range of 2.5 to 3.5 (target INR of 3).Rosales BETANCOURT, et al. Chest 2012, 141:7S-47SNishimmariluz RA, et al. [facility] 2017, 70: 252-289 Performed By: #### 1 4979-9, 20059-5 ####[facility]ORATORYCLIA [id number] [place] [address] [place] PT Coag (PPP) [Time] 11.5 s Normal 9.7-13.0 [facility] Comment on above: Order Comment: Lauren santana Type: BLOOD SPECIMENOrdering Facility: [facility] Address: [address] [place] [address] Performed By: #### 1 4979-9, 17475-1 ####[facility]ORATORYCLIA [id number] [place] [address] [place] Phosphate SerPl-mCncon 02-02 Phosphate [Mass/Vol] 2.4 mg/dL Low 2.7-4.8 [facility] Comment on above: Order Comment: Lauren santana Type: BLOOD SPECIMENOrdering Facility: [facility] Address: [address] [place] [address] Performed By: #### 1 9123-9, 56039-4, 2777-1 ####[facility]ORATORYCLIA [id number] [place] [address] [place] THERAPY NTon 02-02-2022 THERAPY NT Normal [facility] THERAPY NT Normal [facility] aPTT PPPon 02-02-2022 aPTT Coag (PPP) [Time] 27.8 s Normal 23.0-32.4 [facility] Comment on above: Order Comment: Speci men Type: BLOOD SPECIMENOrdering Facility: [facility] Address: [address] [place] [address] Performed By: #### 1 4979-9, 58083-4 ####[facility]ORATORYCLIA [id number] [address] [place] ANES PRE-OPon 02-01-2022 ANES PRE-OP Normal [facility] HISTORY PHYSICALon 2 HISTORY PHYSICAL Normal [facility] OPERATIVE NOon 02-01-2022 OPERATIVE NO Normal [facility] STAPH AUREUS PCRon 2 S. aureus and MRSA panel NADEEM+probe (Nose) Normal Negative [facility] Comment on above: Order Comment: Speci men Type: SWAB OF INTERNAL NOSEOrdering Facility: [facility] Address: [address] [place] [address] Result Comment: Nega tive for Staphylococcus aureus by PCR.Negative for MRSA by PCR Performed By: #### S APCR ####[facility]ORATORYCLIA [id number] [place] [address] [place] Basic metabolic 2000 panelon 01-22-2022 Anion gap [Moles/Vol] 12 mmol/L Normal 05-05 [facility] Comment on above: Order Comment: Speci men Type: BLOOD SPECIMENOrdering Facility: [facility] Address: [address] [place] [address] Performed By: #### 2 4321-2 ####[facility]ORATORYCLIA [id number] [place] [address] [place] Calcium [Mass/Vol] 9.7 mg/dL Normal 8.5-10.2 [facility] Comment on above: Order Comment: Speci men Type: BLOOD SPECIMENOrdering Facility: [facility] Address: [address] [place] [address] Performed By: #### 2 4321-2 ####[facility] LABORATORYCLIA [id number] [place] [address] [place] Chloride [Moles/Vol] 105 mmol/L Normal 97-105 [facility] Comment on above: Order Comment: Speci men Type: BLOOD SPECIMENOrdering Facility: [facility] Address: [address] [place] [address] Performed By: #### 2 4321-2 ####[facility] LABORATORYCLIA [id number] [address] [place] CO2 [Moles/Vol] 22 mmol/L Normal 22-30 [facility] Comment on above: Order Comment: Speci men Type: BLOOD SPECIMENOrdering Facility: [facility] Address: [address] [place] [address] Performed By: #### 2 4321-2 ####[facility] LABORATORYCLIA [id number] [address] [place] Creatinine [Mass/Vol] 0.47 mg/dL Low 0.58-0.96 [facility] Comment on above: Order Comment: Speci men Type: BLOOD SPECIMENOrdering Facility: [facility] Address: [address] [place] [address] Performed By: #### 2 4321-2 ####[facility]ORATORYCLIA [id number] [address] ESTIMATED GLOMERULAR FILTRATION RATE 104 mL/min/1.73m??? Normal >=60 [facility] Comment on above: Order Comment: Speci men Type: BLOOD SPECIMENOrdering Facility: [facility] Address: [address] [place] [address] Result Comment: Ameena mated Glomerular Filtration Rate (eGFR) is calculated using the 2020 CKD-EPI creatinine equation. This equation utilizes serum creatinine, sex, and age as parameters. The creatinine assay has traceable calibration to isotope dilution-mass spectrometry. Refer to KDIGO guidelines for clinical interpretation. In patients with unstable renal function, e.g. those with acute kidney injury, the eGFR may not accurately reflect actual GFR. Performed By: #### 2 4321-2 ####[facility] LABORATORYCLIA [id number] [place] [address] [place] Glucose [Mass/Vol] 91 mg/dL Normal 74-99 [facility] Comment on above: Order Comment: Lauren santana Type: BLOOD SPECIMENOrdering Facility: [facility] Address: [address] [place] [address] Result Comment: The [place] [employer] (ADA) provides guidance for cutoff values for fasting glucose and random glucose. The ADA defines fasting as no caloric intake for at least 8 hours. Fasting plasma glucose results between 100 to 125 mg/dL indicate increased risk for diabetes (prediabetes).Fasting plasma glucose results greater than or equal to 126 mg/dL meet the criteria for diagnosis of diabetes. In the absence of unequivocal hyperglycemia, results should be confirmed by repeat testing. In a patient with classic symptoms of hyperglycemia or hyperglycemic crisis, random plasma glucose results greater than or equal to 200 mg/dL meet the criteria for diagnosis of diabetes.Reference: Standards of Medical Care in Diabetes 2016, [place] [employer]. Diabetes Care. 2016.39(Suppl 1). Performed By: #### 2 4321-2 ####[facility] LABORATORYCLIA [id number] [place] [id number] [place] Potassium [Moles/Vol] 4.6 mmol/L Normal 3.7-5.1 [facility] Comment on above: Order Comment: Lauren santana Type: BLOOD SPECIMENOrdering Facility: [facility] Address: [address] Performed By: #### 2 4321-2 ####[facility] LABORATORYCLIA [id number] [place] [id number] [place] Sodium [Moles/Vol] 139 mmol/L Normal 136-144 [facility] Comment on above: Order Comment: Speci men Type: BLOOD SPECIMENOrdering Facility: [facility] Address: [address] [place] [address] Performed By: #### 2 4321-2 ####[facility] LABORATORYCLIA [id number] [place] [address] [place] Urea nitrogen [Mass/Vol] 13 mg/dL Normal 7-21 [facility] Comment on above: Order Comment: Speci men Type: BLOOD SPECIMENOrdering Facility: [facility] Address: [address] [place] [address] Performed By: #### 2 4321-2 ####[facility] LABORATORYCLIA [id number] [place] [address] [place] CBC panel Auto (Bld)on 01-22 Erythrocyte distribution width (RBC) [Ratio] 15.3 % High 11.5-15.0 [facility] Comment on above: Order Comment: Speci men Type: BLOOD SPECIMENOrdering Facility: [facility] Address: [address] [place] [address] Performed By: #### 5 8410-2 ####[facility] LABORATORYCLIA [id number] [address] [place] Hematocrit (Bld) [Volume fraction] 46.3 % High 36.0-46.0 [facility] Comment on above: Order Comment: Speci men Type: BLOOD SPECIMENOrdering Facility: [facility] Address: [address] [place] [address] Performed By: #### 5 8410-2 ####[facility] LABORATORYCLIA [id number] [address] [place] Hemoglobin (Bld) [Mass/Vol] 14.8 g/dL Normal 11.5-15.5 [facility] Comment on above: Order Comment: Speci men Type: BLOOD SPECIMENOrdering Facility: [facility] Address: [address] [place] [address] Performed By: #### 5 8410-2 ####[facility] LABORATORYCLIA [id number] [address] MCH (RBC) [Entitic mass] 30.3 pg Normal 26.0-34.0 [facility] Comment on above: Order Comment: Speci men Type: BLOOD SPECIMENOrdering Facility: [facility] Address: [address] [place] [address] Performed By: #### 5 8410-2 ####[facility] LABORATORYCLIA [id number] [address] MCHC (RBC) [Mass/Vol] 32.0 g/dL Normal 30.5-36.0 [facility] Comment on above: Order Comment: Speci men Type: BLOOD SPECIMENOrdering Facility: [facility] Address: [address] [place] [address] Performed By: #### 5 8410-2 ####[facility] LABORATORYCLIA [id number] [address] MCV (RBC) [Entitic vol] 94.7 fL Normal 80.0-100.0 [facility] Comment on above: Order Comment: Speci men Type: BLOOD SPECIMENOrdering Facility: [facility] Address: [address] [place] [address] Performed By: #### 5 8410-2 ####[facility] LABORATORYCLIA [id number] [address] Nucleated RBC (Bld) [#/Vol] 10*3/uL Normal <0.01 [facility] Comment on above: Order Comment: Speci men Type: BLOOD SPECIMENOrdering Facility: [facility] Address: [address] [place] [address] Performed By: #### 5 8410-2 ####[facility] LABORATORYCLIA [id number] [address] Platelet mean volume (Bld) [Entitic vol] 9.6 fL Normal 9.0-12.7 [facility] Comment on above: Order Comment: Speci men Type: BLOOD SPECIMENOrdering Facility: [facility] Address: [address] [place] [address] Performed By: #### 5 8410-2 ####[facility] LABORATORYCLIA [id number] [address] Platelets (Bld) [#/Vol] 295 10*3/uL Normal 150-400 [facility] Comment on above: Order Comment: Speci men Type: BLOOD SPECIMENOrdering Facility: [facility] Address: [address] [place] [address] Performed By: #### 5 8410-2 ####[facility] LABORATORYCLIA [id number] [address] RBC (Bld) [#/Vol] 4.89 10*6/uL Normal 3.90-5.20 [facility] Comment on above: Order Comment: Speci men Type: BLOOD SPECIMENOrdering Facility: [facility] Address: [address] [place] [address] Performed By: #### 5 8410-2 ####[facility] LABORATORYCLIA [id number] [address] WBC (Bld) [#/Vol] 8.53 10*3/uL Normal 3.70-11.00 [facility] Comment on above: Order Comment: Speci men Type: BLOOD SPECIMENOrdering Facility: [facility] Address: [address] [place] [address] Performed By: #### 5 8410-2 ####[facility]ORATORYCLIA [id number] [address] HISTORY PHYSICALon HISTORY PHYSICAL Normal [facility] PT panel Coag (PPP)on 2021 INR Coag (PPP) [Relative time] 1.0 {INR} Normal 0.9-1.3 [facility] Comment on above: Order Comment: Speci men Type: BLOOD SPECIMENOrdering Facility: [facility] Address: [address] [place], [place] [address] Result Comment: Sariah min K Antagonist (VKA) Therapeutic Range: INR 2 to 3 (Target INR of 2.5)Note: For patients treated with VKA drugs, such as warfarin, the [employer] 2012 Guideline recommends a therapeutic INR range of 2 to 3 (target INR of 2.5). This recommendation includes high-risk patients with antiphospholipid syndrome with previous arterial or venous thromboembolism, current-generation mechanical or bioprosthetic aortic heart valve replacement.Note: Patients with mechanical aortic valve replacement and additional risk factors for thromboembolic events (atrial fibrillation, previous thromboembolism, LV dysfunction, hypercoagulable conditions) or an older generation mechanical AVR (i.e., ball in-Cage) or any mechanical MVR should have a INR therapeutic range of 2.5 to 3.5 (target INR of 3).Rosales GH, et al. Chest 2012, 141:7S-47SNishimmariluz RA, et al. [facility] 2017, 70: 252-289 Performed By: #### 1 4979-9, 72726-1 ####[facility] LABCLIA [id number] [place] [address] [place] PT Coag (PPP) [Time] 10.0 s Normal 9.7-13.0 [facility] Comment on above: Order Comment: Speci men Type: BLOOD SPECIMENOrdering Facility: [facility] Address: [address] [place], [place] [address] Performed By: #### 1 4979-9, 11002-6 ####[facility] LABCLIA [id number] [place] [address] [place] [facility] aPTT PPPon 01-22-2022 aPTT Coag (PPP) [Time] 28.9 s Normal 23.0-32.4 [facility] Comment on above: Order Comment: Speci men Type: BLOOD SPECIMENOrdering Facility: [facility] Address: [address] [place] [id number] Performed By: #### 1 4979-9, 21874-2 ####[facility] LABCLIA [id number] [place] [address] [place] CNCOon 01-17-2022 CNCO Letter Text Normal [facility] CNOVon 01-15-2022 CNOV Normal [facility] CT BRAIN WO IVCONon 01-16-20 CT BRAIN WO IVCON Normal [facility] Absolute lymphocyte counton 01-07-2022 Lymphocytes Auto (Unsp spec) [#/Vol] 1.75 10*3/uL 0.83-4.51 [facility] Work Phone: Basophil percentageon 2021 Basophils/100 WBC (Bld) 0.3 % 0-1 [facility] Work Phone: Bilirubin [Mass/Vol] 0.30 mg/dL 0.20-1.00 [facility] Work Phone: [phone] Comment on above: For patients on eltr ombopag therapy, use of Dimension [employer] TBIL is not recommended. Chloride [Moles/Vol] 109 mmol/L 98-107 [facility] Work Phone: Cholesterol [Mass/Vol] 175 mg/dL <200 [facility] Work Phone: Comment on above: <200 mg/dL Desirable 200-240 mg/dL Borderline >240 mg/dL High Risk Eosinophils/100 WBC (Bld) 1.1 % 0-5 [facility] Work Phone: Glucose [Mass/Vol] 89 mg/dL 74-106 [facility] Work Phone: [phone] Neutrophils (Bld) [#/Vol] 5.4 10*3/uL 2.0-7.7 [facility] Work Phone: Neutrophils/100 WBC (Bld) 68.0 % 47-70 [facility] Work Phone: Potassium [Moles/Vol] 4.6 mmol/L 3.5-5.1 [facility] Work Phone: Protein [Mass/Vol] 7.7 g/dL 6.4-8.2 [facility] Work Phone: Sodium [Moles/Vol] 140 mmol/L 136-145 [facility] Work Phone: Triglyceride [Mass/Vol] 136 mg/dL <199 [facility] Work Phone: Comment on above: The drugs N-Acetylcy steine and Metamizole may falsely depress this assay.Serum Triglycerides Reference Interval Normal <150 mg/dL Borderline high 150 - 199 mg/dL High 200 - 499 mg/dL Very High > or = 500 mg/dL WBC (Bld) [#/Vol] 7.9 10*3/uL 4.4-11.0 [facility] Work Phone: Blood erythrocytes count (nu mber/volume)on 01-07-2022 RBC (Bld) [#/Vol] 4.69 10*6/uL 4.2-5.4 [facility] Work Phone: Blood hemoglobin measurement (mass/volume)on 01-07-2022 Hemoglobin (Bld) [Mass/Vol] 14.3 g/dL 12.0-15.0 [facility] Work Phone: Blood lymphocytes/100 leukoc yteson 01-07-2022 Lymphocytes/100 WBC (Bld) 22.1 % 19-41 [facility] Work Phone: Blood monocytes/100 leukocyt eson 01-07-2022 Monocytes/100 WBC (Bld) 8.1 % 0-10 [facility] Work Phone: Blood platelet mean volumeon 01-07-2022 Platelet mean volume (Bld) [Entitic vol] 9.5 fL 6.2-12.0 [facility] Work Phone: Determination of erythrocyte mean corpuscular volume (MCV)on 01-07-2022 MCV (RBC) [Entitic vol] 98.9 fL 81-99 [facility] Work Phone: Hematocrit Auto (Bld) [Volum e fraction]on 01-07-2022 Hematocrit (Bld) [Volume fraction] 46.4 % 37-47 [facility] Work Phone: Iron measurement (mass/mass) on 01-07-2022 Iron (Unsp spec) [Mass/Mass] 55 ug/dL 50-170 [facility] Work Phone: Laboratory - Chemistry and C hemistry - challengeon 01-07-2022 ALP [Catalytic activity/Vol] 74 U/L 45-117 [facility] Work Phone: ALT [Catalytic activity/Vol] 18 U/L 13-56 [facility] Work Phone: CO2 [Moles/Vol] 24.0 mmol/L 21.0-32.0 [facility] Work Phone: Globulin (S) [Mass/Vol] 4.0 g/dL 2.2-4.2 [facility] Work Phone: Urea nitrogen/Creatinine [Mass ratio] 27.1 mg/mg 10-20 [facility] Work Phone: Laboratory - Hematology and Cell countson 01-07-2022 Erythrocyte distribution width (RBC) [Entitic vol] 57.2 fL 35.1-43.9 [facility] Work Phone: Erythrocyte distribution width (RBC) [Ratio] 15.6 % 11.6-14.6 [facility] Work Phone: Immature granulocytes/100 WBC (Bld) 0.400 % 0.0-0.9 [facility] Work Phone: Comment on above: IG% - Immature Granu locytes (promyelocytes, myelocytes and metamyelocytes) > 1% indicates that a LEFT SHIFT is Present. MCH (RBC) [Entitic mass] 30.5 pg 27.0-32.0 [facility] Work Phone: Nucleated RBC/100 WBC (Bld) [Ratio] 0 % 0-5 [facility] Work Phone: MCHC Auto (RBC) [Mass/Vol]on 01-07-2022 MCHC (RBC) [Mass/Vol] 30.8 g/dL 32-36 [facility] Work Phone: No Panel Informationon 01-07 Estimated GFR (MDRD) Amer 141 mL/min >60 [facility] Work Phone: Comment on above: GFR Calc Estimated GFR (MDRD) Non-Af Amer 116 mL/min >60 [facility] Work Phone: Comment on above: Non- GFR Calc Total Iron Binding Capacity 396 ug/dL 250-450 [facility] Work Phone: Urine Microalbumin/Creatinine Ratio 46.0 mg/g CRE <30 [facility] Work Phone: Platelets bldon 01-07-2022 Platelets (Bld) [#/Vol] 344 10*3/uL 150-450 [facility] Work Phone: Serum or plasma albumin joaquin urement (mass/volume)on 01-07-2022 Albumin [Mass/Vol] 3.7 g/dL 3.2-5.0 [facility] Work Phone: Serum or plasma albumin/glob ulin mass ratioon 01-07-2022 Albumin/Globulin [Mass ratio] 0.9 {ratio} 0.9-2.4 [facility] Work Phone: Serum or plasma calcium joaquin urement (mass/volume)on 01-07-2022 Calcium [Mass/Vol] 9.5 mg/dL 8.5-10.1 [facility] Work Phone: Serum or plasma cholesterol in HDL measurement (mass/volume)on 01-07-2022 Cholesterol in HDL [Mass/Vol] 50 mg/dL >40 [facility] Work Phone: Comment on above: The drugs N-Acetylcy steine and Metamizole may falsely depress this assay. Reference Range HDL <40 mg/dL Low HDL Cholesterol HDL >or= 60 mg/dL High HDL Cholesterol Serum or plasma cholesterol in VLDL measurement (mass/volume)on 01-07-2022 Cholesterol in VLDL [Mass/Vol] 27 mg/dL 5-40 [facility] Work Phone: Serum or plasma creatinine m easurement (mass/volume)on 01-07-2022 Creatinine [Mass/Vol] 0.55 mg/dL 0.55-1.02 [facility] Work Phone: Comment on above: The validity of the calculated GFR & GFRAA in patients over 70 years has not been determined. Clinical correlation is essential. Serum or plasma ferritin bryce surement (mass/volume)on 01-07-2022 Ferritin [Mass/Vol] 28 ng/mL 8-252 [facility] Work Phone: Serum or plasma low density lipoprotein (LDL) cholesterol measurement (mass/volume)on 01-07-2022 Cholesterol in LDL [Mass/Vol] 98 mg/dL 0-130 [facility] Work Phone: Serum or plasma urea nitroge n measurement (mass/volume)on 01-07-2022 Urea nitrogen [Mass/Vol] 15 mg/dL 7-18 [facility] Work Phone: Thin prep Papanicolaou smear with manual screeningon 01-07-2022 Thin prep Papanicolaou smear with manual screening 9 U/L 15-37 [facility] Work Phone: Thin prep Papanicolaou smear with manual screening 7 5-15 [facility] Work Phone: Thin prep Papanicolaou smear with manual screening 9.1 mg/L NO RANGE EST. [facility] Work Phone: Urine creatinine measurement (mass/volume)on 01-07-2022 Creatinine (U) [Mass/Vol] 19.80 mg/dL NO RANGE EST. [facility] Work Phone: Whole blood hemoglobin A1c/t otal hemoglobin ratio (mass fraction)on 01-07-2022 HbA1c (Bld) [Mass fraction] 5.4 % 3.8-5.6 [facility] Work Phone: Comment on above: Normal < 5.7 % Predi abetic 5.7 - 6.4 % Diabetic >or= 6.5 % Please note range changes. CNOVon 12-18-2021 CNOV Normal [facility] CT BRAIN WO IVCONon 12-19-19 CT BRAIN WO IVCON Normal [facility] Absolute lymphocyte counton 12-06-2021 Lymphocytes Auto (Unsp spec) [#/Vol] 1.42 10*3/uL 0.83-4.51 [facility] Work Phone: Basophil percentageon 2021 Basophil percentage 0 SEEN /hpf 0-5 [facility] Work Phone: Basophils/100 WBC (Bld) 0.4 % 0-1 [facility] Work Phone: Bilirubin [Mass/Vol] 0.30 mg/dL 0.20-1.00 [facility] Work Phone: Comment on above: For patients on eltr ombopag therapy, use of Dimension [employer] TBIL is not recommended. Chloride [Moles/Vol] 105 mmol/L 98-107 [facility] Work Phone: Cholesterol [Mass/Vol] 166 mg/dL <200 [facility] Work Phone: Comment on above: <200 mg/dL Desirable 200-240 mg/dL Borderline >240 mg/dL High Risk Eosinophils/100 WBC (Bld) 0.8 % 0-5 [facility] Work Phone: Glucose [Mass/Vol] 118 mg/dL 74-106 [facility] Work Phone: Comment on above: Fasting Glucose resu lt from 100 to 125 mg/dL suggests IMPAIRED HOMEOSTASIS per A.D.A. criteria. Neutrophils (Bld) [#/Vol] 5.0 10*3/uL 2.0-7.7 [facility] Work Phone: Neutrophils/100 WBC (Bld) 69.3 % 47-70 [facility] Work Phone: Potassium [Moles/Vol] 4.5 mmol/L 3.5-5.1 [facility] Work Phone: Protein [Mass/Vol] 7.3 g/dL 6.4-8.2 [facility] Work Phone: Sodium [Moles/Vol] 138 mmol/L 136-145 [facility] Work Phone: Triglyceride [Mass/Vol] 177 mg/dL <199 [facility] Work Phone: Comment on above: The drugs N-Acetylcy steine and Metamizole may falsely depress this assay.Serum Triglycerides Reference Interval Normal <150 mg/dL Borderline high 150 - 199 mg/dL High 200 - 499 mg/dL Very High > or = 500 mg/dL WBC (Bld) [#/Vol] 7.3 10*3/uL 4.4-11.0 [facility] Work Phone: Bilirubin Test strip Ql (U)o n 12-06-2021 Bilirubin Ql (U) Negative Negative [facility] Work Phone: Blood erythrocytes count (nu mber/volume)on 12-06-2021 RBC (Bld) [#/Vol] 4.03 10*6/uL 4.2-5.4 [facility] Work Phone: Blood hemoglobin measurement (mass/volume)on 12-06-2021 Hemoglobin (Bld) [Mass/Vol] 12.1 g/dL 12.0-15.0 [facility] Work Phone: Blood lymphocytes/100 leukoc yteson 12-06-2021 Lymphocytes/100 WBC (Bld) 19.6 % 19-41 [facility] Work Phone: Blood monocytes/100 leukocyt eson 12-06-2021 Monocytes/100 WBC (Bld) 9.6 % 0-10 [facility] Work Phone: Blood platelet mean volumeon 12-06-2021 Platelet mean volume (Bld) [Entitic vol] 9.0 fL 6.2-12.0 [facility] Work Phone: Determination of erythrocyte mean corpuscular volume (MCV)on 12-06-2021 MCV (RBC) [Entitic vol] 97.8 fL 81-99 [facility] Work Phone: Hematocrit Auto (Bld) [Volum e fraction]on 12-06-2021 Hematocrit (Bld) [Volume fraction] 39.4 % 37-47 [facility] Work Phone: Ketones Test strip Ql (U)on 12-06-2021 Ketones Ql (U) Negative Negative [facility] Work Phone: Laboratory - Chemistry and C hemistry - challengeon 12-06-2021 ALP [Catalytic activity/Vol] 69 U/L 45-117 [facility] Work Phone: ALT [Catalytic activity/Vol] 17 U/L 13-56 [facility] Work Phone: CO2 [Moles/Vol] 25.0 mmol/L 21.0-32.0 [facility] Work Phone: Globulin (S) [Mass/Vol] 3.7 g/dL 2.2-4.2 [facility] Work Phone: Urea nitrogen/Creatinine [Mass ratio] 25.3 mg/mg 10-20 [facility] Work Phone: Laboratory - Hematology and Cell countson 12-06-2021 Erythrocyte distribution width (RBC) [Entitic vol] 59.3 fL 35.1-43.9 [facility] Work Phone: Erythrocyte distribution width (RBC) [Ratio] 16.4 % 11.6-14.6 [facility] Work Phone: Immature granulocytes/100 WBC (Bld) 0.300 % 0.0-0.9 [facility] Work Phone: Comment on above: IG% - Immature Granu locytes (promyelocytes, myelocytes and metamyelocytes) > 1% indicates that a LEFT SHIFT is Present. MCH (RBC) [Entitic mass] 30.0 pg 27.0-32.0 [facility] Work Phone: Nucleated RBC/100 WBC (Bld) [Ratio] 0 % 0-5 [facility] Work Phone: MCHC Auto (RBC) [Mass/Vol]on 12-06-2021 MCHC (RBC) [Mass/Vol] 30.7 g/dL 32-36 [facility] Work Phone: Mucus LM Ql (Urine sed)on Mucus Ql (Urine sed) 0 SEEN /hpf [facility] Work Phone: Nitrite Test strip Ql (U)on 12-06-2021 Nitrite Ql (U) Negative Negative [facility] Work Phone: No Panel Informationon 12-06 Estimated GFR (MDRD) Amer 141 mL/min >60 [facility] Work Phone: Comment on above: GFR Calc Estimated GFR (MDRD) Non-Af Amer 117 mL/min >60 [facility] Work Phone: Comment on above: Non- GFR Calc Platelets bldon 12-06-2021 Platelets (Bld) [#/Vol] 406 10*3/uL 150-450 [facility] Work Phone: Protein Test strip Ql (U)on 12-06-2021 Protein Ql (U) Negative Negative [facility] Work Phone: Serum or plasma albumin joaquin urement (mass/volume)on 12-06-2021 Albumin [Mass/Vol] 3.6 g/dL 3.2-5.0 [facility] Work Phone: Serum or plasma albumin/glob ulin mass ratioon 12-06-2021 Albumin/Globulin [Mass ratio] 1.0 {ratio} 0.9-2.4 [facility] Work Phone: Serum or plasma calcium joaquin urement (mass/volume)on 12-06-2021 Calcium [Mass/Vol] 9.3 mg/dL 8.5-10.1 [facility] Work Phone: Serum or plasma cholesterol in HDL measurement (mass/volume)on 12-06-2021 Cholesterol in HDL [Mass/Vol] 49 mg/dL >40 [facility] Work Phone: Comment on above: The drugs N-Acetylcy steine and Metamizole may falsely depress this assay. Reference Range HDL <40 mg/dL Low HDL Cholesterol HDL >or= 60 mg/dL High HDL Cholesterol Serum or plasma cholesterol in VLDL measurement (mass/volume)on 12-06-2021 Cholesterol in VLDL [Mass/Vol] 35 mg/dL 5-40 [facility] Work Phone: Serum or plasma creatinine m easurement (mass/volume)on 12-06-2021 Creatinine [Mass/Vol] 0.55 mg/dL 0.55-1.02 [facility] Work Phone: Comment on above: The validity of the calculated GFR & GFRAA in patients over 70 years has not been determined. Clinical correlation is essential. Serum or plasma low density lipoprotein (LDL) cholesterol measurement (mass/volume)on 12-06-2021 Cholesterol in LDL [Mass/Vol] 82 mg/dL 0-130 [facility] Work Phone: Serum or plasma urea nitroge n measurement (mass/volume)on 12-06-2021 Urea nitrogen [Mass/Vol] 14 mg/dL 7-18 [facility] Work Phone: Squamous epithelial cells de tection in urine sediment by light microscopyon 12-06-2021 Epithelial cells.squamous LM Ql (Urine sed) 0 SEEN /hpf 5-10 [facility] Work Phone: Thin prep Papanicolaou smear with manual screeningon 12-06-2021 Thin prep Papanicolaou smear with manual screening 8 U/L 15-37 [facility] Work Phone: Thin prep Papanicolaou smear with manual screening 8 5-15 [facility] Work Phone: Urine blood detectionon - RBC Ql (U) Negative Negative [facility] Work Phone: RBC Ql (U) 0 SEEN /hpf 0-5 [facility] Work Phone: Urine clarityon 04-21-2022 Clarity (U) Clear Clear [facility] Work Phone: Urine color determinationon 12-06-2021 Color (U) Yellow Yellow [facility] Work Phone: Urine glucose detectionon Glucose Ql (U) Normal mg/dl Normal [facility] Work Phone: Urine leukocyte esterase det ection by dipstickon 12-06-2021 Leukocyte esterase Test strip Ql (U) Negative Negative [facility] Work Phone: Urine pHon 12-06-2021 pH (U) 7.0 [pH] 5.0 - 8.0 [facility] Work Phone: Urine sediment bacteria coun t by microscopy (number/high power field)on 12-06-2021 Bacteria LM.HPF (Urine sed) [#/Area] 0 /[HPF] None Seen [facility] Work Phone: Urine specific gravity measu rementon 12-06-2021 Specific gravity (U) [Rel density] 1.030 1.002-1.030 [facility] Work Phone: Urobilinogen Auto test strip Ql (U)on 12-06-2021 Urobilinogen Ql (U) Normal mg/dl Normal [facility] Work Phone: Whole blood hemoglobin A1c/t otal hemoglobin ratio (mass fraction)on 12-06-2021 HbA1c (Bld) [Mass fraction] 5.6 % 3.8-5.6 [facility] Work Phone: Comment on above: Normal < 5.7 % Predi abetic 5.7 - 6.4 % Diabetic >or= 6.5 % Please note range changes. Absolute lymphocyte counton 12-05-2021 Lymphocytes Auto (Unsp spec) [#/Vol] 1.55 10*3/uL 0.83-4.51 [facility] Work Phone: Basophil percentageon 2021 Basophils/100 WBC (Bld) 0.1 % 0-1 [facility] Work Phone: Eosinophils/100 WBC (Bld) 0.9 % 0-5 [facility] Work Phone: Neutrophils (Bld) [#/Vol] 5.4 10*3/uL 2.0-7.7 [facility] Work Phone: Neutrophils/100 WBC (Bld) 70.6 % 47-70 [facility] Work Phone: WBC (Bld) [#/Vol] 7.7 10*3/uL 4.4-11.0 [facility] Work Phone: Blood erythrocytes count (nu mber/volume)on 12-05-2021 RBC (Bld) [#/Vol] 4.07 10*6/uL 4.2-5.4 [facility] Work Phone: [phone] Blood hemoglobin measurement (mass/volume)on 12-05-2021 Hemoglobin (Bld) [Mass/Vol] 12.5 g/dL 12.0-15.0 [facility] Work Phone: Blood lymphocytes/100 leukoc yteson 12-05-2021 Lymphocytes/100 WBC (Bld) 20.1 % 19-41 [facility] Work Phone: Blood monocytes/100 leukocyt eson 12-05-2021 Monocytes/100 WBC (Bld) 7.8 % 0-10 [facility] Work Phone: Blood platelet mean volumeon 12-05-2021 Platelet mean volume (Bld) [Entitic vol] 8.6 fL 6.2-12.0 [facility] Work Phone: Determination of erythrocyte mean corpuscular volume (MCV)on 12-05-2021 MCV (RBC) [Entitic vol] 98.5 fL 81-99 [facility] Work Phone: Hematocrit Auto (Bld) [Volum e fraction]on 12-05-2021 Hematocrit (Bld) [Volume fraction] 40.1 % 37-47 [facility] Work Phone: Iron measurement (mass/mass) on 12-05-2021 Iron (Unsp spec) [Mass/Mass] 36 ug/dL 50-170 [facility] Work Phone: Laboratory - Chemistry and C hemistry - challengeon 12-05-2021 Cobalamin (Vitamin B12) [Mass/Vol] 268 pg/mL 211-911 [facility] Laboratory - Hematology and Cell countson 12-05-2021 Erythrocyte distribution width (RBC) [Entitic vol] 59.8 fL 35.1-43.9 [facility] Work Phone: Erythrocyte distribution width (RBC) [Ratio] 16.4 % 11.6-14.6 [facility] Work Phone: Immature granulocytes/100 WBC (Bld) 0.500 % 0.0-0.9 [facility] Work Phone: [phone] Comment on above: IG% - Immature Granu locytes (promyelocytes, myelocytes and metamyelocytes) > 1% indicates that a LEFT SHIFT is Present. MCH (RBC) [Entitic mass] 30.7 pg 27.0-32.0 [facility] Work Phone: [phone] Nucleated RBC/100 WBC (Bld) [Ratio] 0 % 0-5 [facility] Work Phone: MCHC Auto (RBC) [Mass/Vol]on 12-05-2021 MCHC (RBC) [Mass/Vol] 31.2 g/dL 32-36 [facility] Work Phone: No Panel Informationon 12-05 Total Iron Binding Capacity 374 ug/dL 250-450 [facility] Work Phone: Platelets bldon 12-05-2021 Platelets (Bld) [#/Vol] 394 10*3/uL 150-450 [facility] Work Phone: Serum or plasma ferritin bryce surement (mass/volume)on 12-05-2021 Ferritin [Mass/Vol] 24 ng/mL 8-252 [facility] Work Phone: [phone] Serum or plasma iron saturat ion measurement (mass fraction)on 12-05-2021 Iron saturation [Mass fraction] 9.6 % 15.0-55.0 [facility] Work Phone: CNOVon 11-20-2021 CNOV Normal [facility] CT BRAIN WO IVCONon 11-21-19 CT BRAIN WO IVCON Normal [facility] CASE MANAGEMon 11-14-2021 CASE MANAGEM Normal [facility] CASE MANAGEM Normal [facility] CNDSon 11-14-2021 CNDS Normal [facility] THERAPY NTon 11-14-2021 THERAPY NT Normal [facility] CASE MANAGEMon 11-13-2021 CASE MANAGEM Normal [facility] CASE MANAGEM Normal [facility] NUTRITIONon 11-13-2021 NUTRITION Normal [facility] THERAPY NTon 11-13-2021 THERAPY NT Normal [facility] THERAPY NT Normal [facility] Basic metabolic 2000 panelon 11-12-2021 Anion gap [Moles/Vol] 8 mmol/L Low 9-18 [facility] Comment on above: Order Comment: Speci men Type: BLOOD SPECIMENOrdering Facility: [facility] Address: [address] [place] [address] Performed By: #### 2 4321-2 ####[facility]ORATORYCLIA [id number] [place] [address] [place] Calcium [Mass/Vol] 8.8 mg/dL Normal 8.5-10.2 [facility] Comment on above: Order Comment: Speci men Type: BLOOD SPECIMENOrdering Facility: [facility] Address: [address] [place] [address] Performed By: #### 2 4321-2 ####[facility]ORATORYCLIA [id number] [place] [address] [place] Chloride [Moles/Vol] 106 mmol/L High 97-105 [facility] Comment on above: Order Comment: Speci men Type: BLOOD SPECIMENOrdering Facility: [facility] Address: [address] [address] Performed By: #### 2 4321-2 ####[facility] LABORATORYCLIA [id number] [address] STATES OF [facility] CO2 [Moles/Vol] 25 mmol/L Normal 22-30 [facility] Comment on above: Order Comment: Speci men Type: BLOOD SPECIMENOrdering Facility: [facility] Address: [address] [place] [address] Performed By: #### 2 4321-2 ####[facility]ORATORYCLIA [id number] [address] Creatinine [Mass/Vol] 0.31 mg/dL Low 0.58-0.96 [facility] Comment on above: Order Comment: Speci men Type: BLOOD SPECIMENOrdering Facility: [facility] Address: [address] [place] [address] Performed By: #### 2 4321-2 ####[facility]POLISIA [id number] [address] ESTIMATED GLOMERULAR FILTRATION RATE 116 mL/min/1.73m??? Normal >=60 [facility] Comment on above: Order Comment: Speci men Type: BLOOD SPECIMENOrdering Facility: [facility] Address: [address] [place] [address] Result Comment: Ameena mated Glomerular Filtration Rate (eGFR) is calculated using the 2020 CKD-EPI creatinine equation. This equation utilizes serum creatinine, sex, and age as parameters. The creatinine assay has traceable calibration to isotope dilution-mass spectrometry. Refer to KDIGO guidelines for clinical interpretation. In patients with unstable renal function, e.g. those with acute kidney injury, the eGFR may not accurately reflect actual GFR. Performed By: #### 2 4321-2 ####[facility]ORATORYCLIA [id number] [address] OF [facility] Glucose [Mass/Vol] 127 mg/dL High 74-99 [facility] Comment on above: Order Comment: Speci men Type: BLOOD SPECIMENOrdering Facility: [facility] Address: [address] [place] [address] Result Comment: The [place] [employer] (ADA) provides guidance for cutoff values for fasting glucose and random glucose. The ADA defines fasting as no caloric intake for at least 8 hours. Fasting plasma glucose results between 100 to 125 mg/dL indicate increased risk for diabetes (prediabetes).Fasting plasma glucose results greater than or equal to 126 mg/dL meet the criteria for diagnosis of diabetes. In the absence of unequivocal hyperglycemia, results should be confirmed by repeat testing. In a patient with classic symptoms of hyperglycemia or hyperglycemic crisis, random plasma glucose results greater than or equal to 200 mg/dL meet the criteria for diagnosis of diabetes.Reference: Standards of Medical Care in Diabetes 2016, [place] [employer]. Diabetes Care. 2016.39(Suppl 1). Performed By: #### 2 4321-2 ####[facility]ATORYCLIA [id number] [address] STATES OF [facility] Potassium [Moles/Vol] 4.0 mmol/L Normal 3.7-5.1 [facility] Comment on above: Order Comment: Speci esther Type: BLOOD SPECIMENOrdering Facility: [facility] Address: [address] [place] [address] Performed By: #### 2 4321-2 ####[facility]ORYCLIA [id number] [address] STATES OF [facility] Sodium [Moles/Vol] 139 mmol/L Normal 136-144 [facility] Comment on above: Order Comment: Lauren santana Type: BLOOD SPECIMENOrdering Facility: [facility] Address: [address] [place] [address] Performed By: #### 2 4321-2 ####[facility]ORYCLIA [id number] [address] STATES OF [facility] Urea nitrogen [Mass/Vol] 12 mg/dL Normal 7-21 [facility] Comment on above: Order Comment: Lucreciai men Type: BLOOD SPECIMENOrdering Facility: [facility] Address: [facility] [place] [address] Performed By: #### 2 4321-2 ####[facility]ORYCLIA [id number] [address] OF [facility] CASE MANAGEMon 11-12-2021 CASE MANAGEM Normal [facility] CBC panel Auto (Bld)on 11-12 Erythrocyte distribution width (RBC) [Ratio] 16.9 % High 11.5-15.0 [facility] Comment on above: Order Comment: Speci men Type: BLOOD SPECIMENOrdering Facility: [facility] Address: [address] [place] [address] Performed By: #### 5 8410-2 ####[facility]ORYCLIA [id number] [address] Hematocrit (Bld) [Volume fraction] 38.8 % Normal 36.0-46.0 [facility] Comment on above: Order Comment: Speci men Type: BLOOD SPECIMENOrdering Facility: [facility] Address: [address] [place] [address] Performed By: #### 5 8410-2 ####[facility]ORYCLIA [id number] [address] Hemoglobin (Bld) [Mass/Vol] 11.9 g/dL Normal 11.5-15.5 [facility] Comment on above: Order Comment: Speci men Type: BLOOD SPECIMENOrdering Facility: [facility] Address: [address] [place] [address] Performed By: #### 5 8410-2 ####[facility]ORYCLIA [id number] [address] STATES [facility] MCH (RBC) [Entitic mass] 30.7 pg Normal 26.0-34.0 [facility] Comment on above: Order Comment: Speci men Type: BLOOD SPECIMENOrdering Facility: [facility] Address: [address] [place] [address] Performed By: #### 5 8410-2 ####[facility]ORYCLIA [id number] [address] STATES OF [place] MCHC (RBC) [Mass/Vol] 30.7 g/dL Normal 30.5-36.0 [facility] Comment on above: Order Comment: Speci men Type: BLOOD SPECIMENOrdering Facility: [facility] Address: [address] [place] [address] Performed By: #### 5 8410-2 ####[facility]ORYCLIA [id number] [address] MCV (RBC) [Entitic vol] 100.3 fL High 80.0-100.0 [facility] Comment on above: Order Comment: Speci men Type: BLOOD SPECIMENOrdering Facility: [facility] Address: [address] [place] [address] Performed By: #### 5 8410-2 ####[facility]ORYCLIA [id number] [address] Nucleated RBC (Bld) [#/Vol] 10*3/uL Normal <0.01 [facility] Comment on above: Order Comment: Speci men Type: BLOOD SPECIMENOrdering Facility: [facility] Address: [address] [place] [address] Performed By: #### 5 8410-2 ####[facility]ORYCLIA [id number] [address] Platelet mean volume (Bld) [Entitic vol] 9.0 fL Normal 9.0-12.7 [facility] Comment on above: Order Comment: Speci men Type: BLOOD SPECIMENOrdering Facility: [facility] Address: [address] [place] [address] Performed By: #### 5 8410-2 ####[facility]ORYCLIA [id number] [address] Platelets (Bld) [#/Vol] 480 10*3/uL High 150-400 [facility] Comment on above: Order Comment: Speci men Type: BLOOD SPECIMENOrdering Facility: [facility] Address: [address] [place] [address] Performed By: #### 5 8410-2 ####[facility]ORYCLIA [id number] [address] STATES [place] RBC (Bld) [#/Vol] 3.87 10*6/uL Low 3.90-5.20 [facility] Comment on above: Order Comment: Speci men Type: BLOOD SPECIMENOrdering Facility: [facility] Address: [address] [place] [address] Performed By: #### 5 8410-2 ####[facility]ATORYCLIA [id number] [place] [address] [place] WBC (Bld) [#/Vol] 7.61 10*3/uL Normal 3.70-11.00 [facility] Comment on above: Order Comment: Speci men Type: BLOOD SPECIMENOrdering Facility: [facility] Address: [address] [place] [address] Performed By: #### 5 8410-2 ####[facility]ORYCLIA [id number] [address] OF [place] CONSULTon 11-12-2021 CONSULT Normal [facility] THERAPY NTon 11-12-2021 THERAPY NT Normal [facility] THERAPY NT Normal [facility] Basic metabolic 2000 panelon 11-11-2021 Anion gap [Moles/Vol] 9 mmol/L Normal 9-18 [facility] Comment on above: Order Comment: Speci men Type: BLOOD SPECIMENOrdering Facility: [facility] Address: [address] [place] [address] Performed By: #### 2 4321-2 ####[facility]ORYCLIA [id number] [place] [address] [place] Calcium [Mass/Vol] 9.0 mg/dL Normal 8.5-10.2 [facility] Comment on above: Order Comment: Speci men Type: BLOOD SPECIMENOrdering Facility: [facility] Address: [address] [place] [address] Performed By: #### 2 4321-2 ####[facility]ORYCLIA [id number] [address] OF [place] Chloride [Moles/Vol] 107 mmol/L High 97-105 [facility] Comment on above: Order Comment: Speci men Type: BLOOD SPECIMENOrdering Facility: [facility] Address: [address] [place] [address] Performed By: #### 2 4321-2 ####[facility]ORYCLIA [id number] [address] STATES [place] CO2 [Moles/Vol] 25 mmol/L Normal 22-30 [facility] Comment on above: Order Comment: Speci men Type: BLOOD SPECIMENOrdering Facility: [facility] Address: [address] [place] [address] Performed By: #### 2 4321-2 ####[facility] [id number] [address] STATES OF [facility] Creatinine [Mass/Vol] 0.31 mg/dL Low 0.58-0.96 [facility] Comment on above: Order Comment: Speci men Type: BLOOD SPECIMENOrdering Facility: [facility] Address: [address] [place] [address] Performed By: #### 2 4321-2 ####[facility]ORYCLIA [id number] [address] ESTIMATED GLOMERULAR FILTRATION RATE 116 mL/min/1.73m??? Normal >=60 [facility] Comment on above: Order Comment: Speci men Type: BLOOD SPECIMENOrdering Facility: [facility] Address: [address] [place] [address] Result Comment: Ameena mated Glomerular Filtration Rate (eGFR) is calculated using the 2020 CKD-EPI creatinine equation. This equation utilizes serum creatinine, sex, and age as parameters. The creatinine assay has traceable calibration to isotope dilution-mass spectrometry. Refer to KDIGO guidelines for clinical interpretation. In patients with unstable renal function, e.g. those with acute kidney injury, the eGFR may not accurately reflect actual GFR. Performed By: #### 2 4321-2 ####[facility]ATORYCLIA [id number] [place] [address] [place] Glucose [Mass/Vol] 116 mg/dL High 74-99 [facility] Comment on above: Order Comment: Speci men Type: BLOOD SPECIMENOrdering Facility: [facility] Address: [address] [place] [address] Result Comment: The [place] Diabetes Association (ADA) provides guidance for cutoff values for fasting glucose and random glucose. The ADA defines fasting as no caloric intake for at least 8 hours. Fasting plasma glucose results between 100 to 125 mg/dL indicate increased risk for diabetes (prediabetes).Fasting plasma glucose results greater than or equal to 126 mg/dL meet the criteria for diagnosis of diabetes. In the absence of unequivocal hyperglycemia, results should be confirmed by repeat testing. In a patient with classic symptoms of hyperglycemia or hyperglycemic crisis, random plasma glucose results greater than or equal to 200 mg/dL meet the criteria for diagnosis of diabetes.Reference: Standards of Medical Care in Diabetes 2016, [place] [employer]. Diabetes Care. 2016.39(Suppl 1). Performed By: #### 2 4321-2 ####[facility]ORYCLIA [id number] [place] [address] [place] Potassium [Moles/Vol] 4.0 mmol/L Normal 3.7-5.1 [facility] Comment on above: Order Comment: Lauren santana Type: BLOOD SPECIMENOrdering Facility: [facility] Address: [address] [place] [address] Performed By: #### 2 4321-2 ####[facility]ATORYCLIA [id number] [place] [address] [place] Sodium [Moles/Vol] 141 mmol/L Normal 136-144 [facility] Comment on above: Order Comment: Lucreciai men Type: BLOOD SPECIMENOrdering Facility: [facility] Address: [address] [place] [address] Performed By: #### 2 4321-2 ####[facility]ORYCLIA [id number] [place] [address] [place] Urea nitrogen [Mass/Vol] 13 mg/dL Normal 7-21 [facility] Comment on above: Order Comment: Speci men Type: BLOOD SPECIMENOrdering Facility: [facility] Address: [address] [place] [address] Performed By: #### 2 4321-2 ####[facility]ORYCLIA [id number] [address] CBC panel Auto (Bld)on 11-11 Erythrocyte distribution width (RBC) [Ratio] 17.3 % High 11.5-15.0 [facility] Comment on above: Order Comment: Speci men Type: BLOOD SPECIMENOrdering Facility: [facility] Address: [address] [place] [address] Performed By: #### 5 8410-2 ####[facility]ORYCLIA [id number] [address] Hematocrit (Bld) [Volume fraction] 38.1 % Normal 36.0-46.0 [facility] Comment on above: Order Comment: Speci men Type: BLOOD SPECIMENOrdering Facility: [facility] Address: [address] [place] [address] Performed By: #### 5 8410-2 ####[facility]ORYCLIA [id number] [address] Hemoglobin (Bld) [Mass/Vol] 11.9 g/dL Normal 11.5-15.5 [facility] Comment on above: Order Comment: Speci men Type: BLOOD SPECIMENOrdering Facility: [facility] Address: [address] [place] [address] Performed By: #### 5 8410-2 ####[facility]ORYCLIA [id number] [address] STATES [facility] MCH (RBC) [Entitic mass] 30.6 pg Normal 26.0-34.0 [facility] Comment on above: Order Comment: Speci men Type: BLOOD SPECIMENOrdering Facility: [facility] Address: [address] [place] [address] Performed By: #### 5 8410-2 ####[facility]ORYCLIA [id number] [address] STATES OF [facility] MCHC (RBC) [Mass/Vol] 31.2 g/dL Normal 30.5-36.0 [facility] Comment on above: Order Comment: Speci men Type: BLOOD SPECIMENOrdering Facility: [facility] Address: [address] [place] [address] Performed By: #### 5 8410-2 ####[facility]ORYCLIA [id number] [address] MCV (RBC) [Entitic vol] 97.9 fL Normal 80.0-100.0 [facility] Comment on above: Order Comment: Speci men Type: BLOOD SPECIMENOrdering Facility: [facility] Address: [address] [place] [address] Performed By: #### 5 8410-2 ####[facility]ORYCLIA [id number] [address] Nucleated RBC (Bld) [#/Vol] 10*3/uL Normal <0.01 [facility] Comment on above: Order Comment: Speci men Type: BLOOD SPECIMENOrdering Facility: [facility] Address: [address] [place] [address] Performed By: #### 5 8410-2 ####[facility]ORYCLIA [id number] [address] [place] Platelet mean volume (Bld) [Entitic vol] 8.9 fL Low 9.0-12.7 [facility] Comment on above: Order Comment: Speci men Type: BLOOD SPECIMENOrdering Facility: [facility] Address: [address] [place] [address] Performed By: #### 5 8410-2 ####[facility]ORYCLIA [id number] [address] OF [place] Platelets (Bld) [#/Vol] 487 10*3/uL High 150-400 [facility] Comment on above: Order Comment: Speci men Type: BLOOD SPECIMENOrdering Facility: [facility] Address: [address] [place] [address] Performed By: #### 5 8410-2 ####[facility]ORYCLIA [id number] [address] OF [facility] RBC (Bld) [#/Vol] 3.89 10*6/uL Low 3.90-5.20 [facility] Comment on above: Order Comment: Speci men Type: BLOOD SPECIMENOrdering Facility: [facility] Address: [address] [place] [address] Performed By: #### 5 8410-2 ####[facility]ORYCLIA [id number] [address] OF [facility] WBC (Bld) [#/Vol] 8.94 10*3/uL Normal 3.70-11.00 [facility] Comment on above: Order Comment: Speci men Type: BLOOD SPECIMENOrdering Facility: [facility] Address: [address] [place] [address] Performed By: #### 5 8410-2 ####[facility]ORYCLIA [id number] [address] OF [facility] NURSING PROGon 11-11-2021 NURSING PROG Normal [facility] THERAPY NTon 11-11-2021 THERAPY NT Normal [facility] THERAPY NT Normal [facility] Basic metabolic 2000 panelon 11-10-2021 Anion gap [Moles/Vol] 12 mmol/L Normal 9-18 [facility] Comment on above: Order Comment: Speci men Type: BLOOD SPECIMENOrdering Facility: [facility] Address: [address] [place] [address] Performed By: #### 2 4321-2 ####[facility]ORYCLIA [id number] [address] Calcium [Mass/Vol] 8.6 mg/dL Normal 8.5-10.2 [facility] Comment on above: Order Comment: Speci men Type: BLOOD SPECIMENOrdering Facility: [facility] Address: [address] [place] [address] Performed By: #### 2 4321-2 ####[facility]ORYCLIA [id number] [address] [place] Chloride [Moles/Vol] 104 mmol/L Normal 97-105 [facility] Comment on above: Order Comment: Speci men Type: BLOOD SPECIMENOrdering Facility: [facility] Address: [address] [place] [address] Performed By: #### 2 4321-2 ####[facility]ORYCLIA [id number] [address] [place] CO2 [Moles/Vol] 23 mmol/L Normal 22-30 [facility] Comment on above: Order Comment: Speci men Type: BLOOD SPECIMENOrdering Facility: [facility] Address: [address] [place] [address] Performed By: #### 2 4321-2 ####[facility]ORYCLIA [id number] [address] OF [facility] Creatinine [Mass/Vol] 0.29 mg/dL Low 0.58-0.96 [facility] Comment on above: Order Comment: Speci men Type: BLOOD SPECIMENOrdering Facility: [facility] Address: [address] [place] [address] Performed By: #### 2 4321-2 ####[facility]ORYCLIA [id number] [address] ESTIMATED GLOMERULAR FILTRATION RATE 118 mL/min/1.73m??? Normal >=60 [facility] Comment on above: Order Comment: Speci men Type: BLOOD SPECIMENOrdering Facility: [facility] Address: [address] [place] [address] Result Comment: Ameena mated Glomerular Filtration Rate (eGFR) is calculated using the 2020 CKD-EPI creatinine equation. This equation utilizes serum creatinine, sex, and age as parameters. The creatinine assay has traceable calibration to isotope dilution-mass spectrometry. Refer to KDIGO guidelines for clinical interpretation. In patients with unstable renal function, e.g. those with acute kidney injury, the eGFR may not accurately reflect actual GFR. Performed By: #### 2 4321-2 ####[facility]ATORYCLIA [id number] [place] [address] [place] Glucose [Mass/Vol] 124 mg/dL High 74-99 [facility] Comment on above: Order Comment: Lauren santana Type: BLOOD SPECIMENOrdering Facility: [facility] Address: [address] [place] [address] Result Comment: The [place] Diabetes Association (ADA) provides guidance for cutoff values for fasting glucose and random glucose. The ADA defines fasting as no caloric intake for at least 8 hours. Fasting plasma glucose results between 100 to 125 mg/dL indicate increased risk for diabetes (prediabetes).Fasting plasma glucose results greater than or equal to 126 mg/dL meet the criteria for diagnosis of diabetes. In the absence of unequivocal hyperglycemia, results should be confirmed by repeat testing. In a patient with classic symptoms of hyperglycemia or hyperglycemic crisis, random plasma glucose results greater than or equal to 200 mg/dL meet the criteria for diagnosis of diabetes.Reference: Standards of Medical Care in Diabetes 2016, [place] [employer]. Diabetes Care. 2016.39(Suppl 1). Performed By: #### 2 4321-2 ####[facility]ATORYCLIA [id number] [place] [address] [place] Potassium [Moles/Vol] 3.6 mmol/L Low 3.7-5.1 [facility] Comment on above: Order Comment: Lauren santana Type: BLOOD SPECIMENOrdering Facility: [facility] Address: [address] [place] [address] Performed By: #### 2 4321-2 ####[facility]ATORYCLIA [id number] [place] [address] [place] Sodium [Moles/Vol] 139 mmol/L Normal 136-144 [facility] Comment on above: Order Comment: Lauren santana Type: BLOOD SPECIMENOrdering Facility: [facility] Address: [address] [place] [address] Performed By: #### 2 4321-2 ####[facility]ATORYCLIA [id number] [address] STATES [facility] Urea nitrogen [Mass/Vol] 12 mg/dL Normal 7-21 [facility] Comment on above: Order Comment: Speci men Type: BLOOD SPECIMENOrdering Facility: [facility] Address: [address] [place] [address] Performed By: #### 2 4321-2 ####[facility]ATORYCLIA [id number] [address] CBC panel Auto (Bld)on 11-10 Erythrocyte distribution width (RBC) [Ratio] 17.7 % High 11.5-15.0 [facility] Comment on above: Order Comment: Speci men Type: BLOOD SPECIMENOrdering Facility: [facility] Address: [address] [place] [address] Performed By: #### 5 8410-2 ####[facility]ATORYCLIA [id number] [address] Hematocrit (Bld) [Volume fraction] 38.1 % Normal 36.0-46.0 [facility] Comment on above: Order Comment: Speci men Type: BLOOD SPECIMENOrdering Facility: [facility] Address: [address] [place] [address] Performed By: #### 5 8410-2 ####[facility]ORYCLIA [id number] [address] Hemoglobin (Bld) [Mass/Vol] 11.8 g/dL Normal 11.5-15.5 [facility] Comment on above: Order Comment: Speci men Type: BLOOD SPECIMENOrdering Facility: [facility] Address: [address] [place] [address] Performed By: #### 5 8410-2 ####[facility]ATORYCLIA [id number] [address] [place] MCH (RBC) [Entitic mass] 30.4 pg Normal 26.0-34.0 [facility] Comment on above: Order Comment: Speci men Type: BLOOD SPECIMENOrdering Facility: [facility] Address: [address] [place] [address] Performed By: #### 5 8410-2 ####[facility]ORYCLIA [id number] [address] MCHC (RBC) [Mass/Vol] 31.0 g/dL Normal 30.5-36.0 [facility] Comment on above: Order Comment: Speci men Type: BLOOD SPECIMENOrdering Facility: [facility] Address: [address] [place] [address] Performed By: #### 5 8410-2 ####[facility]ORYCLIA [id number] [address] MCV (RBC) [Entitic vol] 98.2 fL Normal 80.0-100.0 [facility] Comment on above: Order Comment: Speci men Type: BLOOD SPECIMENOrdering Facility: [facility] Address: [address] [place] [address] Performed By: #### 5 8410-2 ####[facility]ORYCLIA [id number] [address] Nucleated RBC (Bld) [#/Vol] 10*3/uL Normal <0.01 [facility] Comment on above: Order Comment: Speci men Type: BLOOD SPECIMENOrdering Facility: [facility] Address: [address] [place] [address] Performed By: #### 5 8410-2 ####[facility]ORYCLIA [id number] [address] Platelet mean volume (Bld) [Entitic vol] 9.2 fL Normal 9.0-12.7 [facility] Comment on above: Order Comment: Speci men Type: BLOOD SPECIMENOrdering Facility: [facility] Address: [address] [place] [address] Performed By: #### 5 8410-2 ####[facility]ORYCLIA [id number] [address] STATES OF [facility] Platelets (Bld) [#/Vol] 518 10*3/uL High 150-400 [facility] Comment on above: Order Comment: Speci men Type: BLOOD SPECIMENOrdering Facility: [facility] Address: [address] [place] [address] Performed By: #### 5 8410-2 ####[facility]ORYCLIA [id number] [address] STATES OF [facility] RBC (Bld) [#/Vol] 3.88 10*6/uL Low 3.90-5.20 [facility] Comment on above: Order Comment: Speci men Type: BLOOD SPECIMENOrdering Facility: [facility] Address: [address] [place] [address] Performed By: #### 5 8410-2 ####[facility]ORYCLIA [id number] [address] WBC (Bld) [#/Vol] 9.51 10*3/uL Normal 3.70-11.00 [facility] Comment on above: Order Comment: Speci men Type: BLOOD SPECIMENOrdering Facility: [facility] Address: [address] [place] [address] Performed By: #### 5 8410-2 ####[facility]ORATORYCLIA [id number] [address] OF [facility] NURSING PROGon 11-10-2021 NURSING PROG Normal [facility] NURSING PROG Normal [facility] Basic metabolic 2000 panelon 11-09-2021 Anion gap [Moles/Vol] 9 mmol/L Normal 9-18 [facility] Comment on above: Order Comment: Speci men Type: BLOOD SPECIMENOrdering Facility: [facility] Address: [address] [place] [address] Performed By: #### 2 4321-2 ####[facility]ATORYCLIA [id number] [address] [place] Calcium [Mass/Vol] 8.6 mg/dL Normal 8.5-10.2 [facility] Comment on above: Order Comment: Speci men Type: BLOOD SPECIMENOrdering Facility: [facility] Address: [address] [place] [address] Performed By: #### 2 4321-2 ####[facility]ATORYCLIA [id number] [place] [address] [place] Chloride [Moles/Vol] 106 mmol/L High 97-105 [facility] Comment on above: Order Comment: Speci men Type: BLOOD SPECIMENOrdering Facility: [facility] Address: [address] [place] [address] Performed By: #### 2 4321-2 ####[facility]ATORYCLIA [id number] [place] [address] [place] CO2 [Moles/Vol] 25 mmol/L Normal 22-30 [facility] Comment on above: Order Comment: Speci men Type: BLOOD SPECIMENOrdering Facility: [facility] Address: [address] [place] [address] Performed By: #### 2 4321-2 ####[facility]ATORYCLIA [id number] [place] [address] [place] Creatinine [Mass/Vol] 0.34 mg/dL Low 0.58-0.96 [facility] Comment on above: Order Comment: Speci men Type: BLOOD SPECIMENOrdering Facility: [facility] Address: [address] [place] [address] Performed By: #### 2 4321-2 ####[facility]ATORYCLIA [id number] [address] OF [place] ESTIMATED GLOMERULAR FILTRATION RATE 114 mL/min/1.73m??? Normal >=60 [facility] Comment on above: Order Comment: Speci men Type: BLOOD SPECIMENOrdering Facility: [facility] Address: [address] [place] [address] Result Comment: Ameena mated Glomerular Filtration Rate (eGFR) is calculated using the 2020 CKD-EPI creatinine equation. This equation utilizes serum creatinine, sex, and age as parameters. The creatinine assay has traceable calibration to isotope dilution-mass spectrometry. Refer to KDIGO guidelines for clinical interpretation. In patients with unstable renal function, e.g. those with acute kidney injury, the eGFR may not accurately reflect actual GFR. Performed By: #### 2 4321-2 ####[facility]ATORYCLIA [id number] [place] [address] [place] Glucose [Mass/Vol] 151 mg/dL High 74-99 [facility] Comment on above: Order Comment: Speci men Type: BLOOD SPECIMENOrdering Facility: [facility] Address: [address] [place], [place] [address] Result Comment: The [place] Diabetes [employer] (ADA) provides guidance for cutoff values for fasting glucose and random glucose. The ADA defines fasting as no caloric intake for at least 8 hours. Fasting plasma glucose results between 100 to 125 mg/dL indicate increased risk for diabetes (prediabetes).Fasting plasma glucose results greater than or equal to 126 mg/dL meet the criteria for diagnosis of diabetes. In the absence of unequivocal hyperglycemia, results should be confirmed by repeat testing. In a patient with classic symptoms of hyperglycemia or hyperglycemic crisis, random plasma glucose results greater than or equal to 200 mg/dL meet the criteria for diagnosis of diabetes.Reference: Standards of Medical Care in Diabetes 2016, [place] [employer]. Diabetes Care. 2016.39(Suppl 1). Performed By: #### 2 4321-2 ####[facility]ATORYCLIA [id number] [address] [place] Potassium [Moles/Vol] 3.5 mmol/L Low 3.7-5.1 [facility] Comment on above: Order Comment: Speci men Type: BLOOD SPECIMENOrdering Facility: [facility] Address: [address] [id number] Performed By: #### 2 4321-2 ####[facility]ORATORYCLIA [id number] [place] [id number] [place] Sodium [Moles/Vol] 140 mmol/L Normal 136-144 [facility] Comment on above: Order Comment: Speci men Type: BLOOD SPECIMENOrdering Facility: [facility] Address: [address] [place] [address] Performed By: #### 2 4321-2 ####[facility]ATORYCLIA [id number] [address] [place] Urea nitrogen [Mass/Vol] 14 mg/dL Normal 7-21 [facility] Comment on above: Order Comment: Speci men Type: BLOOD SPECIMENOrdering Facility: [facility] Address: [address] [place] [address] Performed By: #### 2 4321-2 ####[facility]ATORYCLIA [id number] [address] [place] CASE MANAGEMon 11-09-2021 CASE MANAGEM Normal [facility] CASE MANAGEM Normal [facility] CBC panel Auto (Bld)on 11-09 Erythrocyte distribution width (RBC) [Ratio] 17.8 % High 11.5-15.0 [facility] Comment on above: Order Comment: Speci men Type: BLOOD SPECIMENOrdering Facility: [facility] Address: [address] [place] [address] Performed By: #### 5 8410-2 ####[facility]ORYCLIA [id number] [address] [place] Hematocrit (Bld) [Volume fraction] 37.7 % Normal 36.0-46.0 [facility] Comment on above: Order Comment: Speci men Type: BLOOD SPECIMENOrdering Facility: [facility] Address: [address] [place] [address] Performed By: #### 5 8410-2 ####[facility]ATORYCLIA [id number] [address] [place] Hemoglobin (Bld) [Mass/Vol] 12.0 g/dL Normal 11.5-15.5 [facility] Comment on above: Order Comment: Speci men Type: BLOOD SPECIMENOrdering Facility: [facility] Address: [address] [place] [address] Performed By: #### 5 8410-2 ####[facility]ATORYCLIA [id number] [address] MCH (RBC) [Entitic mass] 31.0 pg Normal 26.0-34.0 [facility] Comment on above: Order Comment: Speci men Type: BLOOD SPECIMENOrdering Facility: [facility] Address: [address] [place] [address] Performed By: #### 5 8410-2 ####[facility]ORYCLIA [id number] [address] MCHC (RBC) [Mass/Vol] 31.8 g/dL Normal 30.5-36.0 [facility] Comment on above: Order Comment: Speci men Type: BLOOD SPECIMENOrdering Facility: [facility] Address: [address] [place] [address] Performed By: #### 5 8410-2 ####[facility]ATORYCLIA [id number] [address] MCV (RBC) [Entitic vol] 97.4 fL Normal 80.0-100.0 [facility] Comment on above: Order Comment: Speci men Type: BLOOD SPECIMENOrdering Facility: [facility] Address: [address] [place] [address] Performed By: #### 5 8410-2 ####[facility]ATORYCLIA [id number] [address] Nucleated RBC (Bld) [#/Vol] 10*3/uL Normal <0.01 [facility] Comment on above: Order Comment: Speci men Type: BLOOD SPECIMENOrdering Facility: [facility] Address: [address] [place] [address] Performed By: #### 5 8410-2 ####[facility]ORYCLIA [id number] [address] Platelet mean volume (Bld) [Entitic vol] 8.8 fL Low 9.0-12.7 [facility] Comment on above: Order Comment: Speci men Type: BLOOD SPECIMENOrdering Facility: [facility] Address: [address] [place] [address] Performed By: #### 5 8410-2 ####[facility]ATORYCLIA [id number] [address] OF [facility] Platelets (Bld) [#/Vol] 488 10*3/uL High 150-400 [facility] Comment on above: Order Comment: Speci men Type: BLOOD SPECIMENOrdering Facility: [facility] Address: [address] [place] [address] Performed By: #### 5 8410-2 ####[facility]ORYCLIA [id number] [address] STATES OF [facility] RBC (Bld) [#/Vol] 3.87 10*6/uL Low 3.90-5.20 [facility] Comment on above: Order Comment: Speci men Type: BLOOD SPECIMENOrdering Facility: [facility] Address: [address] [place] [address] Performed By: #### 5 8410-2 ####[facility]ORYCLIA [id number] [address] WBC (Bld) [#/Vol] 10.49 10*3/uL Normal 3.70-11.00 [facility] Comment on above: Order Comment: Speci men Type: BLOOD SPECIMENOrdering Facility: [facility] Address: [address] [place] [address] Performed By: #### 5 8410-2 ####[facility]ORYCLIA [id number] [address] OF [facility] NURSING PROGon 11-09-2021 NURSING PROG Normal [facility] NUTRITIONon 11-09-2021 NUTRITION Normal [facility] THERAPY NTon 11-09-2021 THERAPY NT Normal [facility] THERAPY NT Normal [facility] Basic metabolic 2000 panelon 11-08-2021 Anion gap [Moles/Vol] 9 mmol/L Normal 9-18 [facility] Comment on above: Order Comment: Speci men Type: BLOOD SPECIMENOrdering Facility: [facility] Address: [address] [address] Performed By: #### 2 4321-2 ####[facility]ATORYCLIA [id number] [place] [address] [place] Calcium [Mass/Vol] 8.4 mg/dL Low 8.5-10.2 [facility] Comment on above: Order Comment: Speci men Type: BLOOD SPECIMENOrdering Facility: [facility] Address: [address] [place] [address] Performed By: #### 2 4321-2 ####[facility]ORYCLIA [id number] [place] [address] [place] Chloride [Moles/Vol] 109 mmol/L High 97-105 [facility] Comment on above: Order Comment: Speci men Type: BLOOD SPECIMENOrdering Facility: [facility] Address: [address] [place] [address] Performed By: #### 2 4321-2 ####[facility]ORYCLIA [id number] [place] [address] [place] CO2 [Moles/Vol] 22 mmol/L Normal 22-30 [facility] Comment on above: Order Comment: Speci men Type: BLOOD SPECIMENOrdering Facility: [facility] Address: [address] [place] [address] Performed By: #### 2 4321-2 ####[facility]ATORYCLIA [id number] [place] [address] [place] Creatinine [Mass/Vol] 0.29 mg/dL Low 0.58-0.96 [facility] Comment on above: Order Comment: Speci men Type: BLOOD SPECIMENOrdering Facility: [facility] Address: [address] [place] [address] Performed By: #### 2 4321-2 ####[facility]ATORYCLIA [id number] [place] [address] [place] ESTIMATED GLOMERULAR FILTRATION RATE 118 mL/min/1.73m??? Normal >=60 [facility] Comment on above: Order Comment: Lauren santana Type: BLOOD SPECIMENOrdering Facility: [facility] Address: [address] [place] [address] Result Comment: Ameena mated Glomerular Filtration Rate (eGFR) is calculated using the 2020 CKD-EPI creatinine equation. This equation utilizes serum creatinine, sex, and age as parameters. The creatinine assay has traceable calibration to isotope dilution-mass spectrometry. Refer to KDIGO guidelines for clinical interpretation. In patients with unstable renal function, e.g. those with acute kidney injury, the eGFR may not accurately reflect actual GFR. Performed By: #### 2 4321-2 ####[facility]ORATORYIA [id number] [place] [address] [place] Glucose [Mass/Vol] 153 mg/dL High 74-99 [facility] Comment on above: Order Comment: Lauren santana Type: BLOOD SPECIMENOrdering Facility: [facility] Address: [address] [place] [address] Result Comment: The [place] Diabetes Association (ADA) provides guidance for cutoff values for fasting glucose and random glucose. The ADA defines fasting as no caloric intake for at least 8 hours. Fasting plasma glucose results between 100 to 125 mg/dL indicate increased risk for diabetes (prediabetes).Fasting plasma glucose results greater than or equal to 126 mg/dL meet the criteria for diagnosis of diabetes. In the absence of unequivocal hyperglycemia, results should be confirmed by repeat testing. In a patient with classic symptoms of hyperglycemia or hyperglycemic crisis, random plasma glucose results greater than or equal to 200 mg/dL meet the criteria for diagnosis of diabetes.Reference: Standards of Medical Care in Diabetes 2016, [place] [employer]. Diabetes Care. 2016.39(Suppl 1). Performed By: #### 2 4321-2 ####[facility]ORYCLIA [id number] [place] [address] [place] Potassium [Moles/Vol] 3.2 mmol/L Low 3.7-5.1 [facility] Comment on above: Order Comment: Speci men Type: BLOOD SPECIMENOrdering Facility: [facility] Address: [address] [place] [address] Performed By: #### 2 4321-2 ####[facility]ATORYCLIA [id number] [address] Sodium [Moles/Vol] 140 mmol/L Normal 136-144 [facility] Comment on above: Order Comment: Speci men Type: BLOOD SPECIMENOrdering Facility: [facility] Address: [address] [place] [address] Performed By: #### 2 4321-2 ####[facility]ORYCLIA [id number] [address] STATES OF [facility] Urea nitrogen [Mass/Vol] 21 mg/dL Normal 7-21 [facility] Comment on above: Order Comment: Speci men Type: BLOOD SPECIMENOrdering Facility: [facility] Address: [address] [place] [address] Performed By: #### 2 4321-2 ####[facility]ORYCLIA [id number] [address] [place] CASE MANAGEMon 11-08-2021 CASE MANAGEM Normal [facility] CBC panel Auto (Bld)on 11-08 Erythrocyte distribution width (RBC) [Ratio] 18.3 % High 11.5-15.0 [facility] Comment on above: Order Comment: Speci men Type: BLOOD SPECIMENOrdering Facility: [facility] Address: [address] [place] [address] Performed By: #### 5 8410-2 ####[facility]ORYCLIA [id number] [address] Hematocrit (Bld) [Volume fraction] 39.4 % Normal 36.0-46.0 [facility] Comment on above: Order Comment: Speci men Type: BLOOD SPECIMENOrdering Facility: [facility] Address: [address] [place] [address] Performed By: #### 5 8410-2 ####[facility]ATORYCLIA [id number] [address] OF [facility] Hemoglobin (Bld) [Mass/Vol] 12.3 g/dL Normal 11.5-15.5 [facility] Comment on above: Order Comment: Speci men Type: BLOOD SPECIMENOrdering Facility: [facility] Address: [address] [place] [address] Performed By: #### 5 8410-2 ####[facility]ATORYCLIA [id number] [address] MCH (RBC) [Entitic mass] 31.5 pg Normal 26.0-34.0 [facility] Comment on above: Order Comment: Speci men Type: BLOOD SPECIMENOrdering Facility: [facility] Address: [address] [place] [address] Performed By: #### 5 8410-2 ####[facility]ORYCLIA [id number] [address] MCHC (RBC) [Mass/Vol] 31.2 g/dL Normal 30.5-36.0 [facility] Comment on above: Order Comment: Speci men Type: BLOOD SPECIMENOrdering Facility: [facility] Address: [address] [place] [address] Performed By: #### 5 8410-2 ####[facility]ORYCLIA [id number] [address] MCV (RBC) [Entitic vol] 101.0 fL High 80.0-100.0 [facility] Comment on above: Order Comment: Speci men Type: BLOOD SPECIMENOrdering Facility: [facility] Address: [address] [place] [address] Performed By: #### 5 8410-2 ####[facility]ORYCLIA [id number] [address] Nucleated RBC (Bld) [#/Vol] 10*3/uL Normal <0.01 [facility] Comment on above: Order Comment: Speci men Type: BLOOD SPECIMENOrdering Facility: [facility] Address: [address] [place] [address] Performed By: #### 5 8410-2 ####[facility]ATORYCLIA [id number] [address] [place] Platelet mean volume (Bld) [Entitic vol] 9.3 fL Normal 9.0-12.7 [facility] Comment on above: Order Comment: Speci men Type: BLOOD SPECIMENOrdering Facility: [facility] Address: [address] [place], [place] [address] Performed By: #### 5 8410-2 ####[facility]ORYCLIA [id number] [address] [place] Platelets (Bld) [#/Vol] 489 10*3/uL High 150-400 [facility] Comment on above: Order Comment: Speci men Type: BLOOD SPECIMENOrdering Facility: [facility] Address: [address] [place] [address] Performed By: #### 5 8410-2 ####[facility]ORYCLIA [id number] [address] [place] RBC (Bld) [#/Vol] 3.90 10*6/uL Normal 3.90-5.20 [facility] Comment on above: Order Comment: Speci men Type: BLOOD SPECIMENOrdering Facility: [facility] Address: [address] Performed By: #### 5 8410-2 ####[facility]ATORYCLIA [id number] [address] [place] WBC (Bld) [#/Vol] 12.37 10*3/uL High 3.70-11.00 [facility] Comment on above: Order Comment: Speci men Type: BLOOD SPECIMENOrdering Facility: [facility] Address: [address] [place] [address] Performed By: #### 5 8410-2 ####[facility]ATORYCLIA [id number] [place] [address] [place] CONSULT PROGon 11-08-2021 CONSULT PROG Normal [facility] THERAPY NTon 11-08-2021 THERAPY NT Normal [facility] ALLIED HEALTHon 11-07-2021 ALLIED HEALTH Normal [facility] Basic metabolic 2000 panelon 11-07-2021 Anion gap [Moles/Vol] 9 mmol/L Normal 9-18 [facility] Comment on above: Order Comment: Speci men Type: BLOOD SPECIMENOrdering Facility: [facility] Address: [address] [place] [address] Performed By: #### 2 4321-2 ####[facility]ATORYCLIA [id number] [place] [address] [place] Calcium [Mass/Vol] 8.6 mg/dL Normal 8.5-10.2 [facility] Comment on above: Order Comment: Speci men Type: BLOOD SPECIMENOrdering Facility: [facility] Address: [address] [place] [address] Performed By: #### 2 4321-2 ####[facility]ORYCLIA [id number] [place] [address] [place] Chloride [Moles/Vol] 108 mmol/L High 97-105 [facility] Comment on above: Order Comment: Speci men Type: BLOOD SPECIMENOrdering Facility: [facility] Address: [address] [place] [address] Performed By: #### 2 4321-2 ####[facility]ORYCLIA [id number] [place] [address] [place] CO2 [Moles/Vol] 23 mmol/L Normal 22-30 [facility] Comment on above: Order Comment: Speci men Type: BLOOD SPECIMENOrdering Facility: [facility] Address: [address] [place] [address] Performed By: #### 2 4321-2 ####[facility]ORYCLIA [id number] [place] [address] [place] Creatinine [Mass/Vol] 0.30 mg/dL Low 0.58-0.96 [facility] Comment on above: Order Comment: Lucreciakatie santana Type: BLOOD SPECIMENOrdering Facility: [facility] Address: [address] [address] Performed By: #### 2 4321-2 ####[facility]ATORYCLIA [id number] [address] ESTIMATED GLOMERULAR FILTRATION RATE 117 mL/min/1.73m??? Normal >=60 [facility] Comment on above: Order Comment: Lucreciakatie santana Type: BLOOD SPECIMENOrdering Facility: [facility] Address: [address] [address] Result Comment: Ameena mated Glomerular Filtration Rate (eGFR) is calculated using the 2020 CKD-EPI creatinine equation. This equation utilizes serum creatinine, sex, and age as parameters. The creatinine assay has traceable calibration to isotope dilution-mass spectrometry. Refer to KDIGO guidelines for clinical interpretation. In patients with unstable renal function, e.g. those with acute kidney injury, the eGFR may not accurately reflect actual GFR. Performed By: #### 2 4321-2 ####[facility]ATORYCLIA [id number] [address] STATES OF [facility] Glucose [Mass/Vol] 171 mg/dL High 74-99 [facility] Comment on above: Order Comment: Lauren santana Type: BLOOD SPECIMENOrdering Facility: [facility] Address: [address] [address] Result Comment: The [place] [employer] (ADA) provides guidance for cutoff values for fasting glucose and random glucose. The ADA defines fasting as no caloric intake for at least 8 hours. Fasting plasma glucose results between 100 to 125 mg/dL indicate increased risk for diabetes (prediabetes).Fasting plasma glucose results greater than or equal to 126 mg/dL meet the criteria for diagnosis of diabetes. In the absence of unequivocal hyperglycemia, results should be confirmed by repeat testing. In a patient with classic symptoms of hyperglycemia or hyperglycemic crisis, random plasma glucose results greater than or equal to 200 mg/dL meet the criteria for diagnosis of diabetes.Reference: Standards of Medical Care in Diabetes 2016, [place] [employer]. Diabetes Care. 2016.39(Suppl 1). Performed By: #### 2 4321-2 ####[facility]ATORYCLIA [id number] [address] [place] Potassium [Moles/Vol] 3.5 mmol/L Low 3.7-5.1 [facility] Comment on above: Order Comment: Speci men Type: BLOOD SPECIMENOrdering Facility: [facility] Address: [address] [place] [address] Performed By: #### 2 4321-2 ####[facility]ATORYCLIA [id number] [address] STATES OF [facility] Sodium [Moles/Vol] 140 mmol/L Normal 136-144 [facility] Comment on above: Order Comment: Speci men Type: BLOOD SPECIMENOrdering Facility: [facility] Address: [address] [place] [address] Performed By: #### 2 4321-2 ####[facility]ATORYCLIA [id number] [address] [place] Urea nitrogen [Mass/Vol] 27 mg/dL High 7-21 [facility] Comment on above: Order Comment: Speci men Type: BLOOD SPECIMENOrdering Facility: [facility] Address: [address] [place] [address] Performed By: #### 2 4321-2 ####[facility]ATORYCLIA [id number] [address] [place] CASE MANAGEMon 11-07-2021 CASE MANAGEM Normal [facility] CASE MANAGEM Normal [facility] CBC panel Auto (Bld)on 11-07 Erythrocyte distribution width (RBC) [Ratio] 18.5 % High 11.5-15.0 [facility] Comment on above: Order Comment: Speci men Type: BLOOD SPECIMENOrdering Facility: [facility] Address: [address] [place] [address] Performed By: #### 5 8410-2 ####[facility]ATORYCLIA [id number] [address] Hematocrit (Bld) [Volume fraction] 36.8 % Normal 36.0-46.0 [facility] Comment on above: Order Comment: Speci men Type: BLOOD SPECIMENOrdering Facility: [facility] Address: [address] [place] [address] Performed By: #### 5 8410-2 ####[facility]ATORYCLIA [id number] [address] Hemoglobin (Bld) [Mass/Vol] 11.7 g/dL Normal 11.5-15.5 [facility] Comment on above: Order Comment: Speci men Type: BLOOD SPECIMENOrdering Facility: [facility] Address: [address] [place] [address] Performed By: #### 5 8410-2 ####[facility]ATORYCLIA [id number] [address] MCH (RBC) [Entitic mass] 30.9 pg Normal 26.0-34.0 [facility] Comment on above: Order Comment: Speci men Type: BLOOD SPECIMENOrdering Facility: [facility] Address: [address] [place] [address] Performed By: #### 5 8410-2 ####[facility]ATORYCLIA [id number] [address] [place] MCHC (RBC) [Mass/Vol] 31.8 g/dL Normal 30.5-36.0 [facility] Comment on above: Order Comment: Speci men Type: BLOOD SPECIMENOrdering Facility: [facility] Address: [address] [place] [address] Performed By: #### 5 8410-2 ####[facility]ATORYCLIA [id number] [address] MCV (RBC) [Entitic vol] 97.1 fL Normal 80.0-100.0 [facility] Comment on above: Order Comment: Speci men Type: BLOOD SPECIMENOrdering Facility: [facility] Address: [address] Performed By: #### 5 8410-2 ####[facility]ATORYCLIA [id number] [address] Nucleated RBC (Bld) [#/Vol] 0.02 10*3/uL High <0.01 [facility] Comment on above: Order Comment: Speci men Type: BLOOD SPECIMENOrdering Facility: [facility] Address: [address] Performed By: #### 5 8410-2 ####[facility]ATORYCLIA [id number] [address] [place] Platelet mean volume (Bld) [Entitic vol] 9.2 fL Normal 9.0-12.7 [facility] Comment on above: Order Comment: Speci men Type: BLOOD SPECIMENOrdering Facility: [facility] Address: [address] [place] [address] Performed By: #### 5 8410-2 ####[facility]ATORYCLIA [id number] [address] [place] Platelets (Bld) [#/Vol] 520 10*3/uL High 150-400 [facility] Comment on above: Order Comment: Speci men Type: BLOOD SPECIMENOrdering Facility: [facility] Address: [address] Performed By: #### 5 8410-2 ####[facility]ATORYCLIA [id number] [address] [place] RBC (Bld) [#/Vol] 3.79 10*6/uL Low 3.90-5.20 [facility] Comment on above: Order Comment: Speci men Type: BLOOD SPECIMENOrdering Facility: [facility] Address: [address] [place], [place] [address] Performed By: #### 5 8410-2 ####[facility]ATORYCLIA [id number] [place] [address] [place] WBC (Bld) [#/Vol] 13.66 10*3/uL High 3.70-11.00 [facility] Comment on above: Order Comment: Speci men Type: BLOOD SPECIMENOrdering Facility: [facility] Address: [address] [place] [address] Performed By: #### 5 8410-2 ####[facility]ORYCLIA [id number] [address] [place] NURSING PROGon 11-07-2021 NURSING PROG Normal [facility] NURSING PROG Normal [facility] NURSING PROG Normal [facility] THERAPY NTon 11-07-2021 THERAPY NT Normal [facility] THERAPY NT Normal [facility] THERAPY NT Normal [facility] THERAPY NT Normal [facility] XR MOD BARIUM SWALLOW W SPEE Rowan 11-07-2021 XR MOD BARIUM SWALLOW W SPEECH Normal [facility] ALLIED HEALTHon 11-06-2021 ALLIED HEALTH Normal [facility] Basic metabolic 2000 panelon 11-06-2021 Anion gap [Moles/Vol] 11 mmol/L Normal 9-18 [facility] Comment on above: Order Comment: Speci men Type: BLOOD SPECIMENOrdering Facility: [facility] Address: [address] [place] [address] Performed By: #### 2 4321-2, 2776-08, ####[facility]ATORYCLIA [id number] [place] [address] [place] Calcium [Mass/Vol] 8.9 mg/dL Normal 8.5-10.2 [facility] Comment on above: Order Comment: Speci men Type: BLOOD SPECIMENOrdering Facility: [facility] Address: [address] [place] [address] Performed By: #### 2 4321-2, 277-, ####[facility]ATORYCLIA [id number] [place] [address] [place] Chloride [Moles/Vol] 108 mmol/L High 97-105 [facility] Comment on above: Order Comment: Speci men Type: BLOOD SPECIMENOrdering Facility: [facility] Address: [address] [place] [address] Performed By: #### 2 4321-2, 2776-08, ####[facility]ATORYCLIA [id number] [address] CO2 [Moles/Vol] 27 mmol/L Normal 22-30 [facility] Comment on above: Order Comment: Speci men Type: BLOOD SPECIMENOrdering Facility: [facility] Address: [address] [place] [address] Performed By: #### 2 4321-2, 2776-08, ####[facility]ORATORYCLIA [id number] [address] OF [facility] Creatinine [Mass/Vol] 0.33 mg/dL Low 0.58-0.96 [facility] Comment on above: Order Comment: Speci men Type: BLOOD SPECIMENOrdering Facility: [facility] Address: [address] [place] [address] Performed By: #### 2 4321-2, 2776-08, ####[facility]ATORYCLIA [id number] [address] ESTIMATED GLOMERULAR FILTRATION RATE 114 mL/min/1.73m??? Normal >=60 [facility] Comment on above: Order Comment: Speci men Type: BLOOD SPECIMENOrdering Facility: [facility] Address: [address] [place] [address] Result Comment: Ameena mated Glomerular Filtration Rate (eGFR) is calculated using the 2020 CKD-EPI creatinine equation. This equation utilizes serum creatinine, sex, and age as parameters. The creatinine assay has traceable calibration to isotope dilution-mass spectrometry. Refer to KDIGO guidelines for clinical interpretation. In patients with unstable renal function, e.g. those with acute kidney injury, the eGFR may not accurately reflect actual GFR. Performed By: #### 2 4321-2, ####[facility]ATORYCLIA [id number] [place] [address] [place] Glucose [Mass/Vol] 203 mg/dL High 74-99 [facility] Comment on above: Order Comment: Speci men Type: BLOOD SPECIMENOrdering Facility: [facility] Address: [address] [place], [place] [address] Result Comment: The [place] [employer] (ADA) provides guidance for cutoff values for fasting glucose and random glucose. The ADA defines fasting as no caloric intake for at least 8 hours. Fasting plasma glucose results between 100 to 125 mg/dL indicate increased risk for diabetes (prediabetes).Fasting plasma glucose results greater than or equal to 126 mg/dL meet the criteria for diagnosis of diabetes. In the absence of unequivocal hyperglycemia, results should be confirmed by repeat testing. In a patient with classic symptoms of hyperglycemia or hyperglycemic crisis, random plasma glucose results greater than or equal to 200 mg/dL meet the criteria for diagnosis of diabetes.Reference: Standards of Medical Care in Diabetes 2016, [place] [employer]. Diabetes Care. 2016.39(Suppl 1). Performed By: #### 2 4321-2, ####[facility]ATORYCLIA [id number] [place] [address] [place] Potassium [Moles/Vol] 3.2 mmol/L Low 3.7-5.1 [facility] Comment on above: Order Comment: Lucreciai men Type: BLOOD SPECIMENOrdering Facility: [facility] Address: [address] [place], [place] [address] Performed By: #### 2 4321-2, ####[facility]ATORYCLIA [id number] [place] [address] [place] Sodium [Moles/Vol] 146 mmol/L High 136-144 [facility] Comment on above: Order Comment: Lauren men Type: BLOOD SPECIMENOrdering Facility: [facility] Address: [address] [place], [place] [address] Performed By: #### 2 4321-2, 2776-08, ####[facility]ATORYCLIA [id number] [address] [place] Urea nitrogen [Mass/Vol] 26 mg/dL High 7- [facility] Comment on above: Order Comment: Speci men Type: BLOOD SPECIMENOrdering Facility: [facility] Address: [address] [place] [address] Performed By: #### 2 4321-2, 2777-1, 32193-1 ####[facility]ATORYCLIA [id number] [address] [place] CALCIUM IONIZED Bon 11-07-19 Calcium.ionized (BldV) [Mass/Vol] 1.14 mmol/L Normal 1.08-1.30 [facility] Comment on above: Order Comment: Speci men Type: BLOOD SPECIMENOrdering Facility: [facility] Address: [address] [place] [address] Performed By: #### I CA ####[facility]ITALCLIA [id number] [address] Calcium.ionized adjusted to pH 7.4 (Bld) [Moles/Vol] 1.14 mmol/L Normal 1.08-1.30 [facility] Comment on above: Order Comment: Speci men Type: BLOOD SPECIMENOrdering Facility: [facility] Address: [address] [place] [address] Performed By: #### I CA ####[facility]ATORYCLIA [id number] [address] [place] CASE MANAGEMon 11-06-2021 CASE MANAGEM Normal [facility] CBC panel Auto (Bld)on 11-06 Erythrocyte distribution width (RBC) [Ratio] 18.5 % High 11.5-15.0 [facility] Comment on above: Order Comment: Speci men Type: BLOOD SPECIMENOrdering Facility: [facility] Address: [address] [place] [address] Performed By: #### 5 8410-2 ####[facility]ATORYCLIA [id number] [address] OF [facility] Hematocrit (Bld) [Volume fraction] 39.3 % Normal 36.0-46.0 [facility] Comment on above: Order Comment: Speci men Type: BLOOD SPECIMENOrdering Facility: [facility] Address: [address] [place] [address] Performed By: #### 5 8410-2 ####[facility]ORYCLIA [id number] [address] OF [facility] Hemoglobin (Bld) [Mass/Vol] 11.9 g/dL Normal 11.5-15.5 [facility] Comment on above: Order Comment: Speci men Type: BLOOD SPECIMENOrdering Facility: [facility] Address: [address] [place] [address] Performed By: #### 5 8410-2 ####[facility]ORYCLIA [id number] [address] MCH (RBC) [Entitic mass] 31.0 pg Normal 26.0-34.0 [facility] Comment on above: Order Comment: Speci men Type: BLOOD SPECIMENOrdering Facility: [facility] Address: [address] [place] [address] Performed By: #### 5 8410-2 ####[facility]ORYCLIA [id number] [address] [place] MCHC (RBC) [Mass/Vol] 30.3 g/dL Low 30.5-36.0 [facility] Comment on above: Order Comment: Speci men Type: BLOOD SPECIMENOrdering Facility: [facility] Address: [address] [place] [address] Performed By: #### 5 8410-2 ####[facility]ORYCLIA [id number] [address] MCV (RBC) [Entitic vol] 102.3 fL High 80.0-100.0 [facility] Comment on above: Order Comment: Speci men Type: BLOOD SPECIMENOrdering Facility: [facility] Address: [address] Performed By: #### 5 8410-2 ####[facility]ORYCLIA [id number] [address] [place] Nucleated RBC (Bld) [#/Vol] 0.04 10*3/uL High <0.01 [facility] Comment on above: Order Comment: Speci men Type: BLOOD SPECIMENOrdering Facility: [facility] Address: [address] [place], [place] [address] Performed By: #### 5 8410-2 ####[facility]ORYCLIA [id number] [address] [place] Platelet mean volume (Bld) [Entitic vol] 9.5 fL Normal 9.0-12.7 [facility] Comment on above: Order Comment: Speci men Type: BLOOD SPECIMENOrdering Facility: [facility] Address: [address] [place] [address] Performed By: #### 5 8410-2 ####[facility]ORYCLIA [id number] [address] [place] Platelets (Bld) [#/Vol] 565 10*3/uL High 150-400 [facility] Comment on above: Order Comment: Speci men Type: BLOOD SPECIMENOrdering Facility: [facility] Address: [address] [place], [place] [address] Performed By: #### 5 8410-2 ####[facility]ORYCLIA [id number] [address] [place] RBC (Bld) [#/Vol] 3.84 10*6/uL Low 3.90-5.20 [facility] Comment on above: Order Comment: Speci men Type: BLOOD SPECIMENOrdering Facility: [facility] Address: [address] [place], [place] [address] Performed By: #### 5 8410-2 ####[facility]ATORYCLIA [id number] [address] [place] WBC (Bld) [#/Vol] 16.56 10*3/uL High 3.70-11.00 [facility] Comment on above: Order Comment: Speci men Type: BLOOD SPECIMENOrdering Facility: [facility] Address: [address] [place] [address] Performed By: #### 5 8410-2 ####[facility]ORYCLIA [id number] [address] [place] Magnesium SerPl-mCncon 11-06 Magnesium [Mass/Vol] 2.0 mg/dL Normal 1.7-2.3 [facility] Comment on above: Order Comment: Speci men Type: BLOOD SPECIMENOrdering Facility: [facility] Address: [address] [place] [address] Performed By: #### 2 4321-2, 2777-1, ####[facility]ATORYCLIA [id number] [address] [place] NURSING PROGon 11-06-2021 NURSING PROG Normal [facility] NUTRITIONon 11-06-2021 NUTRITION Normal [facility] Phosphate SerPl-mCncon 11-06 Phosphate [Mass/Vol] 2.7 mg/dL Normal 2.7-4.8 [facility] Comment on above: Order Comment: Speci men Type: BLOOD SPECIMENOrdering Facility: [facility] Address: [address] [place] [address] Performed By: #### 2 4321-2, 2777-1, ####[facility]ORYCLIA [id number] [address] [place] THERAPY NTon 11-06-2021 THERAPY NT Normal [facility] XR CHEST 1V FRONTALon 2021 XR CHEST 1V FRONTAL Normal [facility] ALLIED HEALTHon 11-05-2021 ALLIED HEALTH Normal [facility] Basic metabolic 2000 panelon 11-05-2021 Anion gap [Moles/Vol] 12 mmol/L Normal 9-18 [facility] Comment on above: Order Comment: Speci men Type: BLOOD SPECIMENOrdering Facility: [facility] Address: [address] [place], [place] [address] Performed By: #### 2 4321-2, , 2776-08 ####[facility]ATORYCLIA [id number] [place] [address] [place] Calcium [Mass/Vol] 9.0 mg/dL Normal 8.5-10.2 [facility] Comment on above: Order Comment: Speci men Type: BLOOD SPECIMENOrdering Facility: [facility] Address: [address] [place] [address] Performed By: #### 2 4321-2, , 2776-08 ####[facility]ATORYCLIA [id number] [place] [address] [place] Chloride [Moles/Vol] 112 mmol/L High 97-105 [facility] Comment on above: Order Comment: Speci men Type: BLOOD SPECIMENOrdering Facility: [facility] Address: [address] [place], [place] [address] Performed By: #### 2 4321-2, , 2776-08 ####[facility]ATORYCLIA [id number] [place] [address] [place] CO2 [Moles/Vol] 23 mmol/L Normal 22-30 [facility] Comment on above: Order Comment: Speci men Type: BLOOD SPECIMENOrdering Facility: [facility] Address: [address] Performed By: #### 2 4321-2, , 2776-08 ####[facility]ATORYCLIA [id number] [place] [address] [place] Creatinine [Mass/Vol] 0.33 mg/dL Low 0.58-0.96 [facility] Comment on above: Order Comment: Speci men Type: BLOOD SPECIMENOrdering Facility: [facility] Address: [address] [place], [place] [address] Performed By: #### 2 4321-2, 31420-9, 2776-1 ####[facility]ITALCLIA [id number] [address] [place] ESTIMATED GLOMERULAR FILTRATION RATE 114 mL/min/1.73m??? Normal >=60 [facility] Comment on above: Order Comment: Lauren santana Type: BLOOD SPECIMENOrdering Facility: [facility] Address: [address] [place] [address] Result Comment: Ameena mated Glomerular Filtration Rate (eGFR) is calculated using the 2020 CKD-EPI creatinine equation. This equation utilizes serum creatinine, sex, and age as parameters. The creatinine assay has traceable calibration to isotope dilution-mass spectrometry. Refer to KDIGO guidelines for clinical interpretation. In patients with unstable renal function, e.g. those with acute kidney injury, the eGFR may not accurately reflect actual GFR. Performed By: #### 2 4321-2, , 2776-08 ####[facility]PITALCLIA [id number] [place] [address] [place] Glucose [Mass/Vol] 298 mg/dL High 74-99 [facility] Comment on above: Order Comment: Lauren santana Type: BLOOD SPECIMENOrdering Facility: [facility] Address: [address] [place] [address] Result Comment: The [place] Diabetes Association (ADA) provides guidance for cutoff values for fasting glucose and random glucose. The ADA defines fasting as no caloric intake for at least 8 hours. Fasting plasma glucose results between 100 to 125 mg/dL indicate increased risk for diabetes (prediabetes).Fasting plasma glucose results greater than or equal to 126 mg/dL meet the criteria for diagnosis of diabetes. In the absence of unequivocal hyperglycemia, results should be confirmed by repeat testing. In a patient with classic symptoms of hyperglycemia or hyperglycemic crisis, random plasma glucose results greater than or equal to 200 mg/dL meet the criteria for diagnosis of diabetes.Reference: Standards of Medical Care in Diabetes 2016, [place] [employer]. Diabetes Care. 2016.39(Suppl 1). Performed By: #### 2 4321-2, , 2776-1 ####[facility]PITALCLIA [id number] [place] [address] [place] Potassium [Moles/Vol] 4.0 mmol/L Normal 3.7-5.1 [facility] Comment on above: Order Comment: Speci men Type: BLOOD SPECIMENOrdering Facility: [facility] Address: [address] [place] [address] Performed By: #### 2 4321-2, , 2776-08 ####[facility]ORATORYCLIA [id number] [place] [address] [place] Sodium [Moles/Vol] 147 mmol/L High 136-144 [facility] Comment on above: Order Comment: Speci men Type: BLOOD SPECIMENOrdering Facility: [facility] Address: [address] [place] [address] Performed By: #### 2 4321-2, , 2776-08 ####[facility]PITALCLIA [id number] [address] STATES [facility] Urea nitrogen [Mass/Vol] 32 mg/dL High 7-21 [facility] Comment on above: Order Comment: Speci men Type: BLOOD SPECIMENOrdering Facility: [facility] Address: [address] [place] [address] Performed By: #### 2 4321-2, , 2776-08 ####[facility]ITALCLIA [id number] [address] [place] CALCIUM IONIZED Bon 11-06-19 22 Calcium.ionized (BldV) [Mass/Vol] 1.23 mmol/L Normal 1.08-1.30 [facility] Comment on above: Order Comment: Speci men Type: BLOOD SPECIMENOrdering Facility: [facility] Address: [address] [place] [address] Performed By: #### I CA ####[facility] LABORATORYCLIA [id number] [address] [place] Calcium.ionized adjusted to pH 7.4 (Bld) [Moles/Vol] 1.27 mmol/L Normal 1.08-1.30 [facility] Comment on above: Order Comment: Speci men Type: BLOOD SPECIMENOrdering Facility: [facility] Address: [address] [place] [address] Performed By: #### I CA ####[facility]ORATORYCLIA [id number] [address] [place] CASE MANAGEMon 11-05-2021 CASE MANAGEM Normal [facility] CASE MANAGEM Normal [facility] CBC panel Auto (Bld)on 11-05 Erythrocyte distribution width (RBC) [Ratio] 18.6 % High 11.5-15.0 [facility] Comment on above: Order Comment: Speci men Type: BLOOD SPECIMENOrdering Facility: [facility] Address: [address] [place] [address] Performed By: #### 5 8410-2 ####[facility]ORATORYCLIA [id number] [address] [place] Hematocrit (Bld) [Volume fraction] 31.5 % Low 36.0-46.0 [facility] Comment on above: Order Comment: Speci men Type: BLOOD SPECIMENOrdering Facility: [facility] Address: [address] [place] [address] Performed By: #### 5 8410-2 ####[facility]ORATORYCLIA [id number] [place] [address] [place] Hemoglobin (Bld) [Mass/Vol] 9.7 g/dL Low 11.5-15.5 [facility] Comment on above: Order Comment: Speci men Type: BLOOD SPECIMENOrdering Facility: [facility] Address: [address] [place] [address] Performed By: #### 5 8410-2 ####[facility]ORATORYCLIA [id number] [address] [place] MCH (RBC) [Entitic mass] 31.2 pg Normal 26.0-34.0 [facility] Comment on above: Order Comment: Speci men Type: BLOOD SPECIMENOrdering Facility: [facility] Address: [address] [place] [address] Performed By: #### 5 8410-2 ####[facility]ORATORYCLIA [id number] [address] MCHC (RBC) [Mass/Vol] 30.8 g/dL Normal 30.5-36.0 [facility] Comment on above: Order Comment: Speci men Type: BLOOD SPECIMENOrdering Facility: [facility] Address: [address] [place] [address] Performed By: #### 5 8410-2 ####[facility]ATORYCLIA [id number] [address] MCV (RBC) [Entitic vol] 101.3 fL High 80.0-100.0 [facility] Comment on above: Order Comment: Speci men Type: BLOOD SPECIMENOrdering Facility: [facility] Address: [address] [place] [address] Performed By: #### 5 8410-2 ####[facility]ATORYCLIA [id number] [address] Nucleated RBC (Bld) [#/Vol] 10*3/uL Normal <0.01 [facility] Comment on above: Order Comment: Speci men Type: BLOOD SPECIMENOrdering Facility: [facility] Address: [address] [place] [address] Performed By: #### 5 8410-2 ####[facility] LABORATORYCLIA [id number] [address] Platelet mean volume (Bld) [Entitic vol] 9.8 fL Normal 9.0-12.7 [facility] Comment on above: Order Comment: Speci men Type: BLOOD SPECIMENOrdering Facility: [facility] Address: [address] [place] [address] Performed By: #### 5 8410-2 ####[facility]ATORYCLIA [id number] [address] OF [facility] Platelets (Bld) [#/Vol] 425 10*3/uL High 150-400 [facility] Comment on above: Order Comment: Speci men Type: BLOOD SPECIMENOrdering Facility: [facility] Address: [address] [place] [address] Performed By: #### 5 8410-2 ####[facility]ORATORYCLIA [id number] [address] [place] RBC (Bld) [#/Vol] 3.11 10*6/uL Low 3.90-5.20 [facility] Comment on above: Order Comment: Speci men Type: BLOOD SPECIMENOrdering Facility: [facility] Address: [address] [place] [address] Performed By: #### 5 8410-2 ####[facility]ATORYCLIA [id number] [address] WBC (Bld) [#/Vol] 10.04 10*3/uL Normal 3.70-11.00 [facility] Comment on above: Order Comment: Speci men Type: BLOOD SPECIMENOrdering Facility: [facility] Address: [address] [place] [address] Performed By: #### 5 8410-2 ####[facility]ATORYCLIA [id number] [address] OF [place] CTA HEAD WO/W IVCONon 2021 CTA HEAD WO/W IVCON Normal [facility] Magnesium SerPl-mCncon 11-05 Magnesium [Mass/Vol] 2.3 mg/dL Normal 1.7-2.3 [facility] Comment on above: Order Comment: Speci men Type: BLOOD SPECIMENOrdering Facility: [facility] Address: [address] [place] [address] Performed By: #### 2 4321-2, 51250-1, 2777-1 ####[facility]ATORYCLIA [id number] [place], [place] [id number] [place] [address] [place] NURSING PROGon 11-05-2021 NURSING PROG Normal [facility] Phosphate SerPl-mCncon 11-05 Phosphate [Mass/Vol] 3.1 mg/dL Normal 2.7-4.8 [facility] Comment on above: Order Comment: Speci men Type: BLOOD SPECIMENOrdering Facility: [facility] Address: [address] [place] [address] Performed By: #### 2 4321-2, , 2776-08 ####[facility]ORATORYCLIA [id number] [address] OF [facility] THERAPY NTon 11-05-2021 THERAPY NT Normal [facility] ALLIED HEALTHon 11-04-2021 ALLIED HEALTH Normal [facility] Basic metabolic 2000 panelon 11-04-2021 Anion gap [Moles/Vol] 8 mmol/L Low 9-18 [facility] Comment on above: Order Comment: Speci men Type: BLOOD SPECIMENOrdering Facility: [facility] Address: [address] [place] [address] Performed By: #### 2 4321-2, , 2776-08 ####[facility]ATORYCLIA [id number] [place] [address] [place] Calcium [Mass/Vol] 8.5 mg/dL Normal 8.5-10.2 [facility] Comment on above: Order Comment: Speci men Type: BLOOD SPECIMENOrdering Facility: [facility] Address: [address] Performed By: #### 2 4321-2, , 2776-08 ####[facility]ATORYCLIA [id number] [place] [address] [place] Chloride [Moles/Vol] 114 mmol/L High 97-105 [facility] Comment on above: Order Comment: Speci men Type: BLOOD SPECIMENOrdering Facility: [facility] Address: [address] [place] [address] Performed By: #### 2 4321-2, , 2776-08 ####[facility]ATORYCLIA [id number] [address] STATES OF [facility] CO2 [Moles/Vol] 25 mmol/L Normal 22-30 [facility] Comment on above: Order Comment: Speci men Type: BLOOD SPECIMENOrdering Facility: [facility] Address: [address] [place] [address] Performed By: #### 2 4321-2, , 2776-08 ####[facility]ATORYCLIA [id number] [place] [id number] [place] OF [facility] Creatinine [Mass/Vol] 0.32 mg/dL Low 0.58-0.96 [facility] Comment on above: Order Comment: Speci men Type: BLOOD SPECIMENOrdering Facility: [facility] Address: [address] [place] [address] Performed By: #### 2 4321-2, , 2776-08 ####[facility]POLISIA [id number] [address] STATES OF [facility] ESTIMATED GLOMERULAR FILTRATION RATE 115 mL/min/1.73m??? Normal >=60 [facility] Comment on above: Order Comment: Speci men Type: BLOOD SPECIMENOrdering Facility: [facility] Address: [address] [place] [address] Result Comment: Ameena mated Glomerular Filtration Rate (eGFR) is calculated using the 2020 CKD-EPI creatinine equation. This equation utilizes serum creatinine, sex, and age as parameters. The creatinine assay has traceable calibration to isotope dilution-mass spectrometry. Refer to KDIGO guidelines for clinical interpretation. In patients with unstable renal function, e.g. those with acute kidney injury, the eGFR may not accurately reflect actual GFR. Performed By: #### 2 4321-2, , 2776-08 ####[facility]ORATORYCLIA [id number] [place] [address] [place] OF [facility] Glucose [Mass/Vol] 220 mg/dL High 74-99 [facility] Comment on above: Order Comment: Lauren santana Type: BLOOD SPECIMENOrdering Facility: [facility] Address: [address] [place], [place] [address] Result Comment: The [place] [employer] (ADA) provides guidance for cutoff values for fasting glucose and random glucose. The ADA defines fasting as no caloric intake for at least 8 hours. Fasting plasma glucose results between 100 to 125 mg/dL indicate increased risk for diabetes (prediabetes).Fasting plasma glucose results greater than or equal to 126 mg/dL meet the criteria for diagnosis of diabetes. In the absence of unequivocal hyperglycemia, results should be confirmed by repeat testing. In a patient with classic symptoms of hyperglycemia or hyperglycemic crisis, random plasma glucose results greater than or equal to 200 mg/dL meet the criteria for diagnosis of diabetes.Reference: Standards of Medical Care in Diabetes 2016, [place] [employer]. Diabetes Care. 2016.39(Suppl 1). Performed By: #### 2 4321-2, , 2776-08 ####[facility]ORATORYCLIA [id number] [place] [address] [place] Potassium [Moles/Vol] 3.5 mmol/L Low 3.7-5.1 [facility] Comment on above: Order Comment: Lauren santana Type: BLOOD SPECIMENOrdering Facility: [facility] Address: [address] [place], [place] [address] Performed By: #### 2 4321-2, , 2776-08 ####[facility]ORATORYCLIA [id number] [place] [address] [place] Sodium [Moles/Vol] 147 mmol/L High 136-144 [facility] Comment on above: Order Comment: Lauren santana Type: BLOOD SPECIMENOrdering Facility: [facility] Address: [address] [place], [place] [address] Performed By: #### 2 4321-2, , 2776-08 ####[facility]ATORYCLIA [id number] [place] [address] [place] Urea nitrogen [Mass/Vol] 30 mg/dL High 7-21 [facility] Comment on above: Order Comment: Speci men Type: BLOOD SPECIMENOrdering Facility: [facility] Address: [address] [place] [address] Performed By: #### 2 4321-2, 72252-0, 2777-1 ####[facility]ATORYCLIA [id number] [address] STATES OF [facility] CALCIUM IONIZED Bon 11-05-19 Calcium.ionized (BldV) [Mass/Vol] 1.17 mmol/L Normal 1.08-1.30 [facility] Comment on above: Order Comment: Speci men Type: BLOOD SPECIMENOrdering Facility: [facility] Address: [address] [place] [address] Performed By: #### I CA ####[facility]CL[facility] [id number] [address] Calcium.ionized adjusted to pH 7.4 (Bld) [Moles/Vol] 1.21 mmol/L Normal 1.08-1.30 [facility] Comment on above: Order Comment: Speci men Type: BLOOD SPECIMENOrdering Facility: [facility] Address: [address] [place] [address] Performed By: #### I CA ####[facility]ATORYCLIA [id number] [address] STATES OF [facility] CBC panel Auto (Bld)on 11-04 Erythrocyte distribution width (RBC) [Ratio] 18.7 % High 11.5-15.0 [facility] Comment on above: Order Comment: Speci men Type: BLOOD SPECIMENOrdering Facility: [facility] Address: [address] [place] [address] Performed By: #### 5 8410-2 ####[facility]ATORYCLIA [id number] [address] Hematocrit (Bld) [Volume fraction] 30.0 % Low 36.0-46.0 [facility] Comment on above: Order Comment: Speci men Type: BLOOD SPECIMENOrdering Facility: [facility] Address: [address] [place] [address] Performed By: #### 5 8410-2 ####[facility]ATORYCLIA [id number] [address] Hemoglobin (Bld) [Mass/Vol] 9.4 g/dL Low 11.5-15.5 [facility] Comment on above: Order Comment: Speci men Type: BLOOD SPECIMENOrdering Facility: [facility] Address: [address] [place] [address] Performed By: #### 5 8410-2 ####[facility]ATORYCLIA [id number] [address] MCH (RBC) [Entitic mass] 31.1 pg Normal 26.0-34.0 [facility] Comment on above: Order Comment: Speci men Type: BLOOD SPECIMENOrdering Facility: [facility] Address: [address] [place] [address] Performed By: #### 5 8410-2 ####[facility]ATORYCLIA [id number] [address] MCHC (RBC) [Mass/Vol] 31.3 g/dL Normal 30.5-36.0 [facility] Comment on above: Order Comment: Speci men Type: BLOOD SPECIMENOrdering Facility: [facility] Address: [address] [place] [address] Performed By: #### 5 8410-2 ####[facility]ATORYCLIA [id number] [address] MCV (RBC) [Entitic vol] 99.3 fL Normal 80.0-100.0 [facility] Comment on above: Order Comment: Speci men Type: BLOOD SPECIMENOrdering Facility: [facility] Address: [address] [place] [address] Performed By: #### 5 8410-2 ####[facility]ATORYCLIA [id number] [place] [address] [place] Nucleated RBC (Bld) [#/Vol] 0.04 10*3/uL High <0.01 [facility] Comment on above: Order Comment: Speci men Type: BLOOD SPECIMENOrdering Facility: [facility] Address: [address] [place] [address] Performed By: #### 5 8410-2 ####[facility]ATORYCLIA [id number] [place] [address] [place] Platelet mean volume (Bld) [Entitic vol] 9.8 fL Normal 9.0-12.7 [facility] Comment on above: Order Comment: Speci men Type: BLOOD SPECIMENOrdering Facility: [facility] Address: [address] [place] [address] Performed By: #### 5 8410-2 ####[facility]ORYCLIA [id number] [address] [place] Platelets (Bld) [#/Vol] 365 10*3/uL Normal 150-400 [facility] Comment on above: Order Comment: Speci men Type: BLOOD SPECIMENOrdering Facility: [facility] Address: [address] [place] [address] Performed By: #### 5 8410-2 ####[facility]ATORYCLIA [id number] [place] [address] [place] RBC (Bld) [#/Vol] 3.02 10*6/uL Low 3.90-5.20 [facility] Comment on above: Order Comment: Speci men Type: BLOOD SPECIMENOrdering Facility: [facility] Address: [address] [place] [address] Performed By: #### 5 8410-2 ####[facility]ATORYCLIA [id number] [place] [address] [place] WBC (Bld) [#/Vol] 10.77 10*3/uL Normal 3.70-11.00 [facility] Comment on above: Order Comment: Speci men Type: BLOOD SPECIMENOrdering Facility: [facility] Address: [address] [place] [address] Performed By: #### 5 8410-2 ####[facility]ORYCLIA [id number] [address] Magnesium SerPl-ncon 11-04 Magnesium [Mass/Vol] 2.1 mg/dL Normal 1.7-2.3 [facility] Comment on above: Order Comment: Speci men Type: BLOOD SPECIMENOrdering Facility: [facility] Address: [address] [place] [address] Performed By: #### 2 4321-2, 33512-6, 2777-1 ####[facility]ATORYCLIA [id number] [address] OF [facility] NURSING PROGon 11-04-2021 NURSING PROG Normal [facility]ate [facility] Phosphate [Mass/Vol] 2.8 mg/dL Normal 2.7-4.8 [facility] Comment on above: Order Comment: Speci men Type: BLOOD SPECIMENOrdering Facility: [facility] Address: [address] [place] [address] Performed By: #### 2 4321-2, , 27702-15 ####[facility]ATORYCLIA [id number] [address] [place] XR CHEST 1V FRONTALon 2021 XR CHEST 1V FRONTAL Normal [facility] ALLIED HEALTHon 11-03-2021 ALLIED HEALTH Normal [facility] ALLIED HEALTH Normal [facility] Basic metabolic 2000 panelon 11-03-2021 Anion gap [Moles/Vol] 9 mmol/L Normal 9-18 [facility] Comment on above: Order Comment: Speci men Type: BLOOD SPECIMENOrdering Facility: [facility] Address: [address] [place] [address] Performed By: #### 2 777-1, 88563-8, 61910-9 ####[facility]ATORYCLIA [id number] [address] STATES OF [facility] Calcium [Mass/Vol] 8.6 mg/dL Normal 8.5-10.2 [facility] Comment on above: Order Comment: Speci men Type: BLOOD SPECIMENOrdering Facility: [facility] Address: [address] [place] [address] Performed By: #### 2 777-1, , 51363-7 ####[facility]ORATORYCLIA [id number] [place] [address] [place] Chloride [Moles/Vol] 112 mmol/L High 97-105 [facility] Comment on above: Order Comment: Speci men Type: BLOOD SPECIMENOrdering Facility: [facility] Address: [address] [place] [address] Performed By: #### 2 777-1, , ####[facility]ATORYCLIA [id number] [address] STATES OF [facility] CO2 [Moles/Vol] 24 mmol/L Normal 22-30 [facility] Comment on above: Order Comment: Speci men Type: BLOOD SPECIMENOrdering Facility: [facility] Address: [address] [place] [address] Performed By: #### 2 777-1, , ####[facility]ATORYCLIA [id number] [address] [place] Creatinine [Mass/Vol] 0.32 mg/dL Low 0.58-0.96 [facility] Comment on above: Order Comment: Speci men Type: BLOOD SPECIMENOrdering Facility: [facility] Address: [address] [place] [address] Performed By: #### 2 777-1, , 05734-4 ####[facility]ATORYCLIA [id number] [address] [place] ESTIMATED GLOMERULAR FILTRATION RATE 115 mL/min/1.73m??? Normal >=60 [facility] Comment on above: Order Comment: Speci men Type: BLOOD SPECIMENOrdering Facility: [facility] Address: [address] [place] [address] Result Comment: Ameena mated Glomerular Filtration Rate (eGFR) is calculated using the 2020 CKD-EPI creatinine equation. This equation utilizes serum creatinine, sex, and age as parameters. The creatinine assay has traceable calibration to isotope dilution-mass spectrometry. Refer to KDIGO guidelines for clinical interpretation. In patients with unstable renal function, e.g. those with acute kidney injury, the eGFR may not accurately reflect actual GFR. Performed By: #### 2 777-1, , 86984-7 ####[facility]ATORYCLIA [id number] [place] [address] [place] Glucose [Mass/Vol] 209 mg/dL High 74-99 [facility] Comment on above: Order Comment: Lauren santana Type: BLOOD SPECIMENOrdering Facility: [facility] Address: [address] [place] [address] Result Comment: The [place] Diabetes [employer] (ADA) provides guidance for cutoff values for fasting glucose and random glucose. The ADA defines fasting as no caloric intake for at least 8 hours. Fasting plasma glucose results between 100 to 125 mg/dL indicate increased risk for diabetes (prediabetes).Fasting plasma glucose results greater than or equal to 126 mg/dL meet the criteria for diagnosis of diabetes. In the absence of unequivocal hyperglycemia, results should be confirmed by repeat testing. In a patient with classic symptoms of hyperglycemia or hyperglycemic crisis, random plasma glucose results greater than or equal to 200 mg/dL meet the criteria for diagnosis of diabetes.Reference: Standards of Medical Care in Diabetes 2016, [place] [employer]. Diabetes Care. 2016.39(Suppl 1). Performed By: #### 2 777-1, , 67406-7 ####[facility]ATORYCLIA [id number] [place] [address] [place] Potassium [Moles/Vol] 3.7 mmol/L Normal 3.7-5.1 [facility] Comment on above: Order Comment: Lauren santana Type: BLOOD SPECIMENOrdering Facility: [facility] Address: [address] [place] [id number] Performed By: #### 2 777-1, , 90553-8 ####[facility]ATORYCLIA [id number] [address] [place] Sodium [Moles/Vol] 145 mmol/L High 136-144 [facility] Comment on above: Order Comment: Speci men Type: BLOOD SPECIMENOrdering Facility: [facility] Address: [address] [place] [address] Performed By: #### 2 777-1, , ####[facility]ATORYCLIA [id number] [address] [place] Urea nitrogen [Mass/Vol] 21 mg/dL Normal 7-21 [facility] Comment on above: Order Comment: Speci men Type: BLOOD SPECIMENOrdering Facility: [facility] Address: [address] [place] [address] Performed By: #### 2 777-1, , ####[facility]ATORYCLIA [id number] [place] [address] [place] CALCIUM IONIZED Bon 11-04-19 22 Calcium.ionized (BldV) [Mass/Vol] 1.15 mmol/L Normal 1.08-1.30 [facility] Comment on above: Order Comment: Speci men Type: BLOOD SPECIMENOrdering Facility: [facility] Address: [address] [place] [address] Performed By: #### I CA ####[facility]ORATORYCLIA [id number] [address] [place] Calcium.ionized adjusted to pH 7.4 (Bld) [Moles/Vol] 1.18 mmol/L Normal 1.08-1.30 [facility] Comment on above: Order Comment: Speci men Type: BLOOD SPECIMENOrdering Facility: [facility] Address: [address] [place] [address] Performed By: #### I CA ####[facility]ATORYCLIA [id number] [address] CBC panel Auto (Bld)on 11-03 Erythrocyte distribution width (RBC) [Ratio] 18.7 % High 11.5-15.0 [facility] Comment on above: Order Comment: Speci men Type: BLOOD SPECIMENOrdering Facility: [facility] Address: [address] [place] [address] Performed By: #### 5 8410-2 ####[facility]ATORYCLIA [id number] [address] Hematocrit (Bld) [Volume fraction] 31.6 % Low 36.0-46.0 [facility] Comment on above: Order Comment: Speci men Type: BLOOD SPECIMENOrdering Facility: [facility] Address: [address] [place] [address] Performed By: #### 5 8410-2 ####[facility]ATORYCLIA [id number] [address] Hemoglobin (Bld) [Mass/Vol] 9.9 g/dL Low 11.5-15.5 [facility] Comment on above: Order Comment: Speci men Type: BLOOD SPECIMENOrdering Facility: [facility] Address: [address] [place] [address] Performed By: #### 5 8410-2 ####[facility]ORYCLIA [id number] [address] MCH (RBC) [Entitic mass] 31.6 pg Normal 26.0-34.0 [facility] Comment on above: Order Comment: Speci men Type: BLOOD SPECIMENOrdering Facility: [facility] Address: [address] [place] [address] Performed By: #### 5 8410-2 ####[facility]ATORYCLIA [id number] [address] [place] MCHC (RBC) [Mass/Vol] 31.3 g/dL Normal 30.5-36.0 [facility] Comment on above: Order Comment: Speci men Type: BLOOD SPECIMENOrdering Facility: [facility] Address: [address] [place] [address] Performed By: #### 5 8410-2 ####[facility]ATORYCLIA [id number] [address] MCV (RBC) [Entitic vol] 101.0 fL High 80.0-100.0 [facility] Comment on above: Order Comment: Speci men Type: BLOOD SPECIMENOrdering Facility: [facility] Address: [address] [place] [address] Performed By: #### 5 8410-2 ####[facility]ATORYCLIA [id number] [address] [place] Nucleated RBC (Bld) [#/Vol] 0.05 10*3/uL High <0.01 [facility] Comment on above: Order Comment: Speci men Type: BLOOD SPECIMENOrdering Facility: [facility] Address: [address] [place] [address] Performed By: #### 5 8410-2 ####[facility]ORYCLIA [id number] [address] Platelet mean volume (Bld) [Entitic vol] 9.9 fL Normal 9.0-12.7 [facility] Comment on above: Order Comment: Speci men Type: BLOOD SPECIMENOrdering Facility: [facility] Address: [address] [place], [place] [address] Performed By: #### 5 8410-2 ####[facility]ATORYCLIA [id number] [address] Platelets (Bld) [#/Vol] 341 10*3/uL Normal 150-400 [facility] Comment on above: Order Comment: Speci men Type: BLOOD SPECIMENOrdering Facility: [facility] Address: [address] [place] [address] Performed By: #### 5 8410-2 ####[facility]ATORYCLIA [id number] [address] OF [facility] RBC (Bld) [#/Vol] 3.13 10*6/uL Low 3.90-5.20 [facility] Comment on above: Order Comment: Speci men Type: BLOOD SPECIMENOrdering Facility: [facility] Address: [address] [place] [address] Performed By: #### 5 8410-2 ####[facility]ORYCLIA [id number] [address] OF [facility] WBC (Bld) [#/Vol] 10.74 10*3/uL Normal 3.70-11.00 [facility] Comment on above: Order Comment: Speci men Type: BLOOD SPECIMENOrdering Facility: [facility] Address: [address] [place] [address] Performed By: #### 5 8410-2 ####[facility]ATORYCLIA [id number] [address] OF [facility] CT BRAIN WO IVCONon 11-04-[address] BRAIN WO IVCON Normal [facility] Magnesium SerPl-mCncon 11-03 Magnesium [Mass/Vol] 2.1 mg/dL Normal 1.7-2.3 [facility] Comment on above: Order Comment: Speci men Type: BLOOD SPECIMENOrdering Facility: [facility] Address: [address] [place] [address] Performed By: #### 2 777-1, 58535-1, 09591-1 ####[facility]ATORYCLIA [id number] [address] [place] NURSING PROGon 11-03-2021 NURSING PROG Normal [facility] Phosphate SerPl-mCncon 11-03 Phosphate [Mass/Vol] 2.2 mg/dL Low 2.7-4.8 [facility] Comment on above: Order Comment: Speci men Type: BLOOD SPECIMENOrdering Facility: [facility] Address: [address] [place] [address] Performed By: #### 2 777-1, 46338-6, 62694-8 ####[facility]ATORYCLIA [id number] [place] [address] [place] XR CHEST 1V FRONTALon 2021 XR CHEST 1V FRONTAL Normal [facility] ALLIED HEALTHon 11-02-2021 ALLIED HEALTH Normal [facility] Bacteria Ur Culton Bacteria identified Cx Nom (U) ORGANISM ID: 1 10,000 -<50,000 CFU/ml Marie glabrata ORGANISM ID: 2 1,000 - <5,000 CFU/ml Marie albicans ORGANISM ID: 3 <1,000 CFU/ml Gram negative bacilli, oxidase positive Insignificant colony count. No further workup. Normal [facility] Comment on above: Performed By: #### 6 30-4 ####[facility]ATORYCLIA [id number] [place] [address] [place] Basic metabolic 2000 panelon 11-02-2021 Anion gap [Moles/Vol] 9 mmol/L Normal -18 [facility] Comment on above: Order Comment: Speci men Type: BLOOD SPECIMENOrdering Facility: [facility] Address: [address] [place] [address] Performed By: #### 2 4321-2, , 2776-08 ####[facility]ATORYCLIA [id number] [place] [address] [place] Calcium [Mass/Vol] 8.5 mg/dL Normal 8.5-10.2 [facility] Comment on above: Order Comment: Speci men Type: BLOOD SPECIMENOrdering Facility: [facility] Address: [address] [address] Performed By: #### 2 4321-2, , 2776-08 ####[facility]ATORYCLIA [id number] [place] [address] [place] Chloride [Moles/Vol] 110 mmol/L High 97-105 [facility] Comment on above: Order Comment: Speci men Type: BLOOD SPECIMENOrdering Facility: [facility] Address: [address] [place] [address] Performed By: #### 2 4321-2, , 2776-08 ####[facility]ATORYCLIA [id number] [address] STATES OF [facility] CO2 [Moles/Vol] 25 mmol/L Normal 22-30 [facility] Comment on above: Order Comment: Speci men Type: BLOOD SPECIMENOrdering Facility: [facility] Address: [address] [place] [address] Performed By: #### 2 4321-2, , 2776-08 ####[facility]ATORYCLIA [id number] [address] Creatinine [Mass/Vol] 0.42 mg/dL Low 0.58-0.96 [facility] Comment on above: Order Comment: Speci men Type: BLOOD SPECIMENOrdering Facility: [facility] Address: [address] [place] [address] Performed By: #### 2 4321-2, , 2776-08 ####[facility] [id number] [address] ESTIMATED GLOMERULAR FILTRATION RATE 108 mL/min/1.73m??? Normal >=60 [facility] Comment on above: Order Comment: Speci men Type: BLOOD SPECIMENOrdering Facility: [facility] Address: [address] [place] [address] Result Comment: Ameena mated Glomerular Filtration Rate (eGFR) is calculated using the 2020 CKD-EPI creatinine equation. This equation utilizes serum creatinine, sex, and age as parameters. The creatinine assay has traceable calibration to isotope dilution-mass spectrometry. Refer to KDIGO guidelines for clinical interpretation. In patients with unstable renal function, e.g. those with acute kidney injury, the eGFR may not accurately reflect actual GFR. Performed By: #### 2 4321-2, , 2776-08 ####[facility]ATORYCLIA [id number] [place] [address] [place] Glucose [Mass/Vol] 217 mg/dL High 74-99 [facility] Comment on above: Order Comment: Lauren santana Type: BLOOD SPECIMENOrdering Facility: [facility] Address: [address] [place], [place] [id number] Result Comment: The [place] [employer] (ADA) provides guidance for cutoff values for fasting glucose and random glucose. The ADA defines fasting as no caloric intake for at least 8 hours. Fasting plasma glucose results between 100 to 125 mg/dL indicate increased risk for diabetes (prediabetes).Fasting plasma glucose results greater than or equal to 126 mg/dL meet the criteria for diagnosis of diabetes. In the absence of unequivocal hyperglycemia, results should be confirmed by repeat testing. In a patient with classic symptoms of hyperglycemia or hyperglycemic crisis, random plasma glucose results greater than or equal to 200 mg/dL meet the criteria for diagnosis of diabetes.Reference: Standards of Medical Care in Diabetes 2016, [place] [employer]. Diabetes Care. 2016.39(Suppl 1). Performed By: #### 2 4321-2, , 2776-08 ####[facility]ATORYCLIA [id number] [place] [address] [place] Potassium [Moles/Vol] 3.7 mmol/L Normal 3.7-5.1 [facility] Comment on above: Order Comment: Lauren santana Type: BLOOD SPECIMENOrdering Facility: [facility] Address: [address] [place], [place] [id number] Performed By: #### 2 4321-2, , 2776-08 ####[facility]ATORYCLIA [id number] [place] [address] [place] Sodium [Moles/Vol] 144 mmol/L Normal 136-144 [facility] Comment on above: Order Comment: Lauren santana Type: BLOOD SPECIMENOrdering Facility: [facility] Address: [address] [place], [place] [id number] Performed By: #### 2 4321-2, , 2776-08 ####[facility]ATORYCLIA [id number] [place] [address] [place] Urea nitrogen [Mass/Vol] 22 mg/dL High 7-21 [facility] Comment on above: Order Comment: Speci men Type: BLOOD SPECIMENOrdering Facility: [facility] Address: [address] [place] [address] Performed By: #### 2 4321-2, 71018-8, 2777-1 ####[facility]ATORYCLIA [id number] [address] CALCIUM IONIZED Bon 11-03-19 Calcium.ionized (BldV) [Mass/Vol] 1.13 mmol/L Normal 1.08-1.30 [facility] Comment on above: Order Comment: Speci men Type: BLOOD SPECIMENOrdering Facility: [facility] Address: [address] [place] [address] Performed By: #### I CA ####[facility]ATORYCLIA [id number] [address] Calcium.ionized adjusted to pH 7.4 (Bld) [Moles/Vol] 1.18 mmol/L Normal 1.08-1.30 [facility] Comment on above: Order Comment: Speci men Type: BLOOD SPECIMENOrdering Facility: [facility] Address: [address] [place] [address] Performed By: #### I CA ####[facility]ATORYCLIA [id number] [address] CASE MANAGEMon 11-02-2021 CASE MANAGEM Normal [facility] CASE MANAGEM Normal [facility] CBC panel Auto (Bld)on 11-02 Erythrocyte distribution width (RBC) [Ratio] 19.0 % High 11.5-15.0 [facility] Comment on above: Order Comment: Speci men Type: BLOOD SPECIMENOrdering Facility: [facility] Address: [address] [place] [address] Performed By: #### 5 8410-2 ####[facility]ATORYCLIA [id number] [address] Hematocrit (Bld) [Volume fraction] 29.9 % Low 36.0-46.0 [facility] Comment on above: Order Comment: Speci men Type: BLOOD SPECIMENOrdering Facility: [facility] Address: [address] [place] [address] Performed By: #### 5 8410-2 ####[facility]ATORYCLIA [id number] [address] STATES OF [facility] Hemoglobin (Bld) [Mass/Vol] 9.4 g/dL Low 11.5-15.5 [facility] Comment on above: Order Comment: Speci men Type: BLOOD SPECIMENOrdering Facility: [facility] Address: [address] [place] [address] Performed By: #### 5 8410-2 ####[facility]ATORYCLIA [id number] [address] [place] MCH (RBC) [Entitic mass] 31.9 pg Normal 26.0-34.0 [facility] Comment on above: Order Comment: Speci men Type: BLOOD SPECIMENOrdering Facility: [facility] Address: [address] [place] [address] Performed By: #### 5 8410-2 ####[facility]ATORYCLIA [id number] [address] [place] MCHC (RBC) [Mass/Vol] 31.4 g/dL Normal 30.5-36.0 [facility] Comment on above: Order Comment: Speci men Type: BLOOD SPECIMENOrdering Facility: [facility] Address: [address] [place] [address] Performed By: #### 5 8410-2 ####[facility]ATORYCLIA [id number] [address] MCV (RBC) [Entitic vol] 101.4 fL High 80.0-100.0 [facility] Comment on above: Order Comment: Speci men Type: BLOOD SPECIMENOrdering Facility: [facility] Address: [address] [place] [address] Performed By: #### 5 8410-2 ####[facility]ATORYCLIA [id number] [address] STATES [place] Nucleated RBC (Bld) [#/Vol] 0.03 10*3/uL High <0.01 [facility] Comment on above: Order Comment: Speci men Type: BLOOD SPECIMENOrdering Facility: [facility] Address: [address] [place] [address] Performed By: #### 5 8410-2 ####[facility]ATORYCLIA [id number] [address] [place] Platelet mean volume (Bld) [Entitic vol] 9.7 fL Normal 9.0-12.7 [facility] Comment on above: Order Comment: Speci men Type: BLOOD SPECIMENOrdering Facility: [facility] Address: [address] [place] [address] Performed By: #### 5 8410-2 ####[facility]ORYCLIA [id number] [address] [place] Platelets (Bld) [#/Vol] 280 10*3/uL Normal 150-400 [facility] Comment on above: Order Comment: Speci men Type: BLOOD SPECIMENOrdering Facility: [facility] Address: [address] [place] [address] Performed By: #### 5 8410-2 ####[facility]ORYCLIA [id number] [address] [place] RBC (Bld) [#/Vol] 2.95 10*6/uL Low 3.90-5.20 [facility] Comment on above: Order Comment: Speci men Type: BLOOD SPECIMENOrdering Facility: [facility] Address: [address] [place] [address] Performed By: #### 5 8410-2 ####[facility]ORYCLIA [id number] [address] [place] WBC (Bld) [#/Vol] 9.55 10*3/uL Normal 3.70-11.00 [facility] Comment on above: Order Comment: Speci men Type: BLOOD SPECIMENOrdering Facility: [facility] Address: [address] [place] [address] Performed By: #### 5 8410-2 ####[facility]ATORYCLIA [id number] [address] [place] CONSULT PROGon 11-02-2021 CONSULT PROG Normal [facility] CONSULT PROG Normal [facility] Magnesium SerPl-mCncon 11-02 Magnesium [Mass/Vol] 2.0 mg/dL Normal 1.7-2.3 [facility] Comment on above: Order Comment: Speci men Type: BLOOD SPECIMENOrdering Facility: [facility] Address: [address] [place] [address] Performed By: #### 2 4321-2, , 2776- ####[facility]ORYCLIA [id number] [address] [place] NURSING PROGon 11-02-2021 NURSING PROG Normal [facility] Phosphate SerPl-mCncon 11-02 Phosphate [Mass/Vol] 2.5 mg/dL Low 2.7-4.8 [facility] Comment on above: Order Comment: Speci men Type: BLOOD SPECIMENOrdering Facility: [facility] Address: [address] [place] [address] Performed By: #### 2 4321-2, , 277- ####[facility]ORYCLIA [id number] [place] [address] [place] STAPH AUREUS PCRon 2 S. aureus and MRSA panel NADEEM+probe (Nose) Normal Negative [facility] Comment on above: Order Comment: Speci men Type: SWAB OF INTERNAL NOSEOrdering Facility: [facility] Address: [address] [place] [address] Result Comment: Nega tive for Staphylococcus aureus by PCR.Negative for MRSA by PCR Performed By: #### S APCR ####[facility]ATORYCLIA [id number] [place] [address] [place] XR CHEST 1V FRONTALon 2021 XR CHEST 1V FRONTAL Normal [facility] ALLIED HEALTHon 11-01-2021 ALLIED HEALTH Normal [facility] Bacteria Spec Resp Culton Bacteria identified Respiratory culture Nom (Unsp spec) CULTURE, RESPIRATORY: Moderate Normal respiratory hyun present GRAM STAIN: Many Gram positive cocci in pairs and chains Rare Yeast Few Polymorphonuclear leukocytes Rare Epithelial cells Abnormal [facility] Comment on above: Performed By: #### 3 2355-0 ####[facility]ATORYCLIA [id number] [place] [address] [place] Basic metabolic 2000 panelon 11-01-2021 Anion gap [Moles/Vol] 12 mmol/L Normal 9-18 [facility] Comment on above: Order Comment: Speci men Type: BLOOD SPECIMENOrdering Facility: [facility] Address: [address] [place] [address] Performed By: #### 2 4321-2, 2776-08, ####[facility]ATORYCLIA [id number] [place] [address] [place] Calcium [Mass/Vol] 8.7 mg/dL Normal 8.5-10.2 [facility] Comment on above: Order Comment: Speci men Type: BLOOD SPECIMENOrdering Facility: [facility] Address: [address] [place] [address] Performed By: #### 2 4321-2, 2776-08, ####[facility]ATORYCLIA [id number] [place] [address] [place] Chloride [Moles/Vol] 111 mmol/L High 97-105 [facility] Comment on above: Order Comment: Speci men Type: BLOOD SPECIMENOrdering Facility: [facility] Address: [address] [place] [address] Performed By: #### 2 4321-2, 2777- ####[facility]ATORYCLIA [id number] [place] [address] [place] CO2 [Moles/Vol] 24 mmol/L Normal 22-30 [facility] Comment on above: Order Comment: Speci men Type: BLOOD SPECIMENOrdering Facility: [facility] Address: [address] [place] [address] Performed By: #### 2 4321-2, 2776-08, ####[facility]CL[facility] [id number] [place] [address] [place] [facility] Creatinine [Mass/Vol] 0.40 mg/dL Low 0.58-0.96 [facility] Comment on above: Order Comment: Speci men Type: BLOOD SPECIMENOrdering Facility: [facility] Address: [address] [place] [address] Performed By: #### 2 4321-2, 2776-08, ####[facility]ISIA [id number] [address] ESTIMATED GLOMERULAR FILTRATION RATE 109 mL/min/1.73m??? Normal >=60 [facility] Comment on above: Order Comment: Speci men Type: BLOOD SPECIMENOrdering Facility: [facility] Address: [address] [place] [address] Result Comment: Ameena mated Glomerular Filtration Rate (eGFR) is calculated using the 2020 CKD-EPI creatinine equation. This equation utilizes serum creatinine, sex, and age as parameters. The creatinine assay has traceable calibration to isotope dilution-mass spectrometry. Refer to KDIGO guidelines for clinical interpretation. In patients with unstable renal function, e.g. those with acute kidney injury, the eGFR may not accurately reflect actual GFR. Performed By: #### 2 4321-2, 2776-08, ####[facility]ATORYCLIA [id number] [place] [address] [place] Glucose [Mass/Vol] 207 mg/dL High 74-99 [facility] Comment on above: Order Comment: Speci men Type: BLOOD SPECIMENOrdering Facility: [facility] Address: [address] [place], [place] [phone] Result Comment: The [place] Diabetes [employer] (ADA) provides guidance for cutoff values for fasting glucose and random glucose. The ADA defines fasting as no caloric intake for at least 8 hours. Fasting plasma glucose results between 100 to 125 mg/dL indicate increased risk for diabetes (prediabetes).Fasting plasma glucose results greater than or equal to 126 mg/dL meet the criteria for diagnosis of diabetes. In the absence of unequivocal hyperglycemia, results should be confirmed by repeat testing. In a patient with classic symptoms of hyperglycemia or hyperglycemic crisis, random plasma glucose results greater than or equal to 200 mg/dL meet the criteria for diagnosis of diabetes.Reference: Standards of Medical Care in Diabetes 2016, [place] [employer]. Diabetes Care. 2016.39(Suppl 1). Performed By: #### 2 4321-2, 2776-08, ####[facility]ATORYCLIA [id number] [place] [address] [place] Potassium [Moles/Vol] 4.0 mmol/L Normal 3.7-5.1 [facility] Comment on above: Order Comment: Speci men Type: BLOOD SPECIMENOrdering Facility: [facility] Address: [address] [place], [place] [id number] Performed By: #### 2 4321-2, 2776-08, ####[facility]ATORYCLIA [id number] [place] [address] [place] Sodium [Moles/Vol] 147 mmol/L High 136-144 [facility] Comment on above: Order Comment: Speci men Type: BLOOD SPECIMENOrdering Facility: [facility] Address: [address] [place], [place] [address] Performed By: #### 2 4321-2, 2776-08, ####[facility]ATORYCLIA [id number] [address] [place] Urea nitrogen [Mass/Vol] 20 mg/dL Normal 7-21 [facility] Comment on above: Order Comment: Speci men Type: BLOOD SPECIMENOrdering Facility: [facility] Address: [address] [place] [address] Performed By: #### 2 4321-2, 2777-1, 18626-5 ####[facility]ATORYCLIA [id number] [address] CALCIUM IONIZED Bon 11-02-19 Calcium.ionized (BldV) [Mass/Vol] 1.19 mmol/L Normal 1.08-1.30 [facility] Comment on above: Order Comment: Speci men Type: BLOOD SPECIMENOrdering Facility: [facility] Address: [address] [place] [address] Performed By: #### I CA ####[facility]ATORYCLIA [id number] [address] OF [facility] Calcium.ionized adjusted to pH 7.4 (Bld) [Moles/Vol] 1.20 mmol/L Normal 1.08-1.30 [facility] Comment on above: Order Comment: Speci men Type: BLOOD SPECIMENOrdering Facility: [facility] Address: [address] [place] [address] Performed By: #### I CA ####[facility]ATORYCLIA [id number] [address] CASE MANAGEMon 11-01-2021 CASE MANAGEM Normal [facility] CBC panel Auto (Bld)on 11-01 Erythrocyte distribution width (RBC) [Ratio] 19.7 % High 11.5-15.0 [facility] Comment on above: Order Comment: Speci men Type: BLOOD SPECIMENOrdering Facility: [facility] Address: [address] [place] [address] Performed By: #### 5 8410-2 ####[facility]ATORYCLIA [id number] [address] STATES OF [facility] Hematocrit (Bld) [Volume fraction] 29.9 % Low 36.0-46.0 [facility] Comment on above: Order Comment: Speci men Type: BLOOD SPECIMENOrdering Facility: [facility] Address: [address] [place] [address] Performed By: #### 5 8410-2 ####[facility]ATORYCLIA [id number] [address] OF [facility] Hemoglobin (Bld) [Mass/Vol] 9.3 g/dL Low 11.5-15.5 [facility] Comment on above: Order Comment: Speci men Type: BLOOD SPECIMENOrdering Facility: [facility] Address: [address] [place] [address] Performed By: #### 5 8410-2 ####[facility]ATORYCLIA [id number] [address] MCH (RBC) [Entitic mass] 31.2 pg Normal 26.0-34.0 [facility] Comment on above: Order Comment: Speci men Type: BLOOD SPECIMENOrdering Facility: [facility] Address: [address] [place] [address] Performed By: #### 5 8410-2 ####[facility]ATORYCLIA [id number] [address] MCHC (RBC) [Mass/Vol] 31.1 g/dL Normal 30.5-36.0 [facility] Comment on above: Order Comment: Speci men Type: BLOOD SPECIMENOrdering Facility: [facility] Address: [address] [place] [address] Performed By: #### 5 8410-2 ####[facility]ATORYCLIA [id number] [address] MCV (RBC) [Entitic vol] 100.3 fL High 80.0-100.0 [facility] Comment on above: Order Comment: Speci men Type: BLOOD SPECIMENOrdering Facility: [facility] Address: [address] [place] [address] Performed By: #### 5 8410-2 ####[facility]ATORYCLIA [id number] [address] Nucleated RBC (Bld) [#/Vol] 0.03 10*3/uL High <0.01 [facility] Comment on above: Order Comment: Speci men Type: BLOOD SPECIMENOrdering Facility: [facility] Address: [address] [place] [address] Performed By: #### 5 8410-2 ####[facility]ATORYCLIA [id number] [place] [address] [place] Platelet mean volume (Bld) [Entitic vol] 9.8 fL Normal 9.0-12.7 [facility] Comment on above: Order Comment: Speci men Type: BLOOD SPECIMENOrdering Facility: [facility] Address: [address] [place] [address] Performed By: #### 5 8410-2 ####[facility]ATORYCLIA [id number] [address] [place] Platelets (Bld) [#/Vol] 239 10*3/uL Normal 150-400 [facility] Comment on above: Order Comment: Speci men Type: BLOOD SPECIMENOrdering Facility: [facility] Address: [address] [place] [address] Performed By: #### 5 8410-2 ####[facility]ATORYCLIA [id number] [place] [address] [place] RBC (Bld) [#/Vol] 2.98 10*6/uL Low 3.90-5.20 [facility] Comment on above: Order Comment: Speci men Type: BLOOD SPECIMENOrdering Facility: [facility] Address: [address] [place] [address] Performed By: #### 5 8410-2 ####[facility]ATORYCLIA [id number] [place] [address] [place] WBC (Bld) [#/Vol] 10.01 10*3/uL Normal 3.70-11.00 [facility] Comment on above: Order Comment: Speci men Type: BLOOD SPECIMENOrdering Facility: [facility] Address: [address] [address] Performed By: #### 5 8410-2 ####[facility]ATORYCLIA [id number] [address] CONSULT PROGon 11-01-2021 CONSULT PROG Normal [facility] Magnesium SerPl-mCncon 11-01 Magnesium [Mass/Vol] 2.0 mg/dL Normal 1.7-2.3 [facility] Comment on above: Order Comment: Speci men Type: BLOOD SPECIMENOrdering Facility: [facility] Address: [address] [place] [address] Performed By: #### 2 4321-2, 2776-, ####[facility]ORATORYCLIA [id number] [address] NURSING PROGon 11-01-2021 NURSING PROG Normal [facility] NURSING PROG Normal [facility] NURSING PROG Normal [facility] NUTRITIONon 11-01-2021 NUTRITION Normal [facility] Phosphate SerPl-mCncon 11-01 Phosphate [Mass/Vol] 3.3 mg/dL Normal 2.7-4.8 [facility] Comment on above: Order Comment: Speci men Type: BLOOD SPECIMENOrdering Facility: [facility] Address: [address] [place] [address] Performed By: #### 2 4321-2, 2776-08, ####[facility]ORATORYCLIA [id number] [address] [place] Urinalysis complete panel (U )on 11-01-2021 Bacteria LM.HPF (Urine sed) [#/Area] Many Abnormal None Seen [facility] Comment on above: Order Comment: Speci men Type: URINE SPECIMENOrdering Facility: [facility] Address: [address] [place] [address] Performed By: #### 2 4356-8 ####[facility]ATORYCLIA [id number] [address] [place] Bilirubin Ql (U) Negative Normal Negative [facility] Comment on above: Order Comment: Speci men Type: URINE SPECIMENOrdering Facility: [facility] Address: [address] [place] [address] Performed By: #### 2 4356-8 ####[facility]ATORYCLIA [id number] [address] Clarity (Unsp spec) Turbid Abnormal Clear [facility] Comment on above: Order Comment: Speci men Type: URINE SPECIMENOrdering Facility: [facility] Address: [address] [place] [address] Performed By: #### 2 4356-8 ####[facility]ATORYCLIA [id number] [address] Color (U) Dark Brown Abnormal yellow [facility] Comment on above: Order Comment: Speci men Type: URINE SPECIMENOrdering Facility: [facility] Address: [address] [place] [address] Performed By: #### 2 4356-8 ####[facility]ATORYCLIA [id number] [address] Epithelial cells LM.HPF (Urine sed) [#/Area] Many Normal [facility] Comment on above: Order Comment: Speci men Type: URINE SPECIMENOrdering Facility: [facility] Address: [address] [place] [address] Performed By: #### 2 4356-8 ####[facility]ATORYCLIA [id number] [address] Glucose Test strip (U) [Mass/Vol] 4+ Abnormal Negative [facility] Comment on above: Order Comment: Speci men Type: URINE SPECIMENOrdering Facility: [facility] Address: [address] [place] [address] Performed By: #### 2 4356-8 ####[facility]ATORYCLIA [id number] [address] Hemoglobin Ql (U) 3+ Abnormal Negative [facility] Comment on above: Order Comment: Speci men Type: URINE SPECIMENOrdering Facility: [facility] Address: [address] [place] [address] Performed By: #### 2 4356-8 ####[facility]ATORYCLIA [id number] [address] Ketones Ql (U) Negative Normal Negative [facility] Comment on above: Order Comment: Speci men Type: URINE SPECIMENOrdering Facility: [facility] Address: [address] [place] [address] Performed By: #### 2 4356-8 ####[facility]ORYCLIA [id number] [address] Leukocyte esterase Test strip Ql (U) 500 Nabeel/mL Abnormal Negative [facility] Comment on above: Order Comment: Speci men Type: URINE SPECIMENOrdering Facility: [facility] Address: [address] [place] [address] Performed By: #### 2 4356-8 ####[facility]ATORYCLIA [id number] [address] Nitrite Ql (U) Negative Normal Negative [facility] Comment on above: Order Comment: Speci men Type: URINE SPECIMENOrdering Facility: [facility] Address: [address] [place] [address] Performed By: #### 2 4356-8 ####[facility]ATORYCLIA [id number] [address] pH (U) 6.0 [pH] Normal 5.0-8.0 [facility] Comment on above: Order Comment: Speci men Type: URINE SPECIMENOrdering Facility: [facility] Address: [address] [place] [address] Performed By: #### 2 4356-8 ####[facility]ORYCLIA [id number] [address] Protein (U) [Mass/Vol] 2+ Abnormal Negative [facility] Comment on above: Order Comment: Speci men Type: URINE SPECIMENOrdering Facility: [facility] Address: [address] [place] [address] Performed By: #### 2 4356-8 ####[facility]ATORYCLIA [id number] [address] [place] RBC LM.HPF (Urine sed) [#/Area] /[HPF] Abnormal 0-3 /HPF [facility] Comment on above: Order Comment: Speci men Type: URINE SPECIMENOrdering Facility: [facility] Address: [address] [place] [address] Performed By: #### 2 4356-8 ####[facility]ITALCLIA [id number] [address] [place] Specific gravity (U) [Rel density] 1.041 High 1.005-1.030 [facility] Comment on above: Order Comment: Speci men Type: URINE SPECIMENOrdering Facility: [facility] Address: [address] [place] [address] Performed By: #### 2 4356-8 ####[facility]ITALCLIA [id number] [address] Urobilinogen Ql (U) Normal Normal Negative [facility] Comment on above: Order Comment: Speci men Type: URINE SPECIMENOrdering Facility: [facility] Address: [address] [place] [address] Performed By: #### 2 4356-8 ####[facility]ORYCLIA [id number] [address] [place] WBC LM.HPF (Urine sed) [#/Area] /[HPF] Abnormal 0-5 /HPF [facility] Comment on above: Order Comment: Speci men Type: URINE SPECIMENOrdering Facility: [facility] Address: [address] [place] [address] Performed By: #### 2 4356-8 ####[facility]ATORYCLIA [id number] [place] [address] [place] Yeast.budding LM.HPF (Urine sed) [#/Area] Many Abnormal None Seen [facility] Comment on above: Order Comment: Speci men Type: URINE SPECIMENOrdering Facility: [facility] Address: [address] [place] [address] Performed By: #### 2 4356-8 ####[facility]ATORYCLIA [id number] [place] [address] [place] XR CHEST 1V FRONTALon 2021 XR CHEST 1V FRONTAL Normal [facility] ALLIED HEALTHon 10-31-2021 ALLIED HEALTH Normal [facility] Basic metabolic 2000 panelon 10-31-2021 Anion gap [Moles/Vol] 9 mmol/L Normal 9-18 [facility] Comment on above: Order Comment: Speci men Type: BLOOD SPECIMENOrdering Facility: [facility] Address: [address] [place] [address] Performed By: #### 1 9123-9, 2777-1, 71953-2 ####[facility]ATORYCLIA [id number] [place] [address] [place] Calcium [Mass/Vol] 8.8 mg/dL Normal 8.5-10.2 [facility] Comment on above: Order Comment: Speci men Type: BLOOD SPECIMENOrdering Facility: [facility] Address: [address] [place] [address] Performed By: #### 1 9123-9, 2777-1, 45257-2 ####[facility]ATORYCLIA [id number] [place] [address] [place] Chloride [Moles/Vol] 112 mmol/L High 97-105 [facility] Comment on above: Order Comment: Speci men Type: BLOOD SPECIMENOrdering Facility: [facility] Address: [address] [place] [address] Performed By: #### 1 9123-9, 2777-1, 21065-9 ####[facility]ATORYCLIA [id number] [address] STATES OF [facility] CO2 [Moles/Vol] 25 mmol/L Normal 22-30 [facility] Comment on above: Order Comment: Speci men Type: BLOOD SPECIMENOrdering Facility: [facility] Address: [address] [place] [address] Performed By: #### 1 9123-9, 2777-1, 24475-4 ####[facility]ATORYCLIA [id number] [address] OF [facility] Creatinine [Mass/Vol] 0.40 mg/dL Low 0.58-0.96 [facility] Comment on above: Order Comment: Speci men Type: BLOOD SPECIMENOrdering Facility: [facility] Address: [address] [place] [address] Performed By: #### 1 9123-9, 2777-1, 49834-9 ####[facility]ITALCLIA [id number] [address] ESTIMATED GLOMERULAR FILTRATION RATE 109 mL/min/1.73m??? Normal >=60 [facility] Comment on above: Order Comment: Speci men Type: BLOOD SPECIMENOrdering Facility: [facility] Address: [address] [place] [address] Result Comment: Ameena mated Glomerular Filtration Rate (eGFR) is calculated using the 2020 CKD-EPI creatinine equation. This equation utilizes serum creatinine, sex, and age as parameters. The creatinine assay has traceable calibration to isotope dilution-mass spectrometry. Refer to KDIGO guidelines for clinical interpretation. In patients with unstable renal function, e.g. those with acute kidney injury, the eGFR may not accurately reflect actual GFR. Performed By: #### 1 9123-9, 2777-1, 97466-7 ####[facility]ATORYCLIA [id number] [address] STATES OF [facility] Glucose [Mass/Vol] 178 mg/dL High 74-99 [facility] Comment on above: Order Comment: Speci men Type: BLOOD SPECIMENOrdering Facility: [facility] Address: [address] [place], [place] [address] Result Comment: The [place] [employer] (ADA) provides guidance for cutoff values for fasting glucose and random glucose. The ADA defines fasting as no caloric intake for at least 8 hours. Fasting plasma glucose results between 100 to 125 mg/dL indicate increased risk for diabetes (prediabetes).Fasting plasma glucose results greater than or equal to 126 mg/dL meet the criteria for diagnosis of diabetes. In the absence of unequivocal hyperglycemia, results should be confirmed by repeat testing. In a patient with classic symptoms of hyperglycemia or hyperglycemic crisis, random plasma glucose results greater than or equal to 200 mg/dL meet the criteria for diagnosis of diabetes.Reference: Standards of Medical Care in Diabetes 2016, [place] [employer]. Diabetes Care. 2016.39(Suppl 1). Performed By: #### 1 9123-9, 2777-1, 82107-2 ####[facility]ATORYCLIA [id number] [place] [address] [place] Potassium [Moles/Vol] 3.8 mmol/L Normal 3.7-5.1 [facility] Comment on above: Order Comment: Speci men Type: BLOOD SPECIMENOrdering Facility: [facility] Address: [address] [address] Performed By: #### 1 9123-9, 2777-, 19955-7 ####[facility]ITALCLIA [id number] [place] [address] [place] Sodium [Moles/Vol] 146 mmol/L High 136-144 [facility] Comment on above: Order Comment: Speci men Type: BLOOD SPECIMENOrdering Facility: [facility] Address: [address] Performed By: #### 1 9123-9, 2777-, 34987-5 ####[facility]ATORYCLIA [id number] [place] [address] [place] Urea nitrogen [Mass/Vol] 19 mg/dL Normal 7-21 [facility] Comment on above: Order Comment: Speci men Type: BLOOD SPECIMENOrdering Facility: [facility] Address: [address] [address] Performed By: #### 1 9123-9, 2777-1, 70637-2 ####[facility]ATORYCLIA [id number] [address] CALCIUM IONIZED Bon 11-01-19 Calcium.ionized (BldV) [Mass/Vol] 1.18 mmol/L Normal 1.08-1.30 [facility] Comment on above: Order Comment: Speci men Type: BLOOD SPECIMENOrdering Facility: [facility] Address: [address] [place] [address] Performed By: #### I CA ####[facility]ATORYCLIA [id number] [address] Calcium.ionized adjusted to pH 7.4 (Bld) [Moles/Vol] 1.23 mmol/L Normal 1.08-1.30 [facility] Comment on above: Order Comment: Speci men Type: BLOOD SPECIMENOrdering Facility: [facility] Address: [address] [place] [address] Performed By: #### I CA ####[facility]ATORYCLIA [id number] [address] CASE MANAGEMon 10-31-2021 CASE MANAGEM Normal [facility] CBC panel Auto (Bld)on 10-31 Erythrocyte distribution width (RBC) [Ratio] 19.9 % High 11.5-15.0 [facility] Comment on above: Order Comment: Speci men Type: BLOOD SPECIMENOrdering Facility: [facility] Address: [address] [place] [address] Performed By: #### 5 8410-2 ####[facility]ATORYCLIA [id number] [address] Hematocrit (Bld) [Volume fraction] 27.3 % Low 36.0-46.0 [facility] Comment on above: Order Comment: Speci men Type: BLOOD SPECIMENOrdering Facility: [facility] Address: [address] [place] [address] Performed By: #### 5 8410-2 ####[facility]ATORYCLIA [id number] [address] Hemoglobin (Bld) [Mass/Vol] 8.8 g/dL Low 11.5-15.5 [facility] Comment on above: Order Comment: Speci men Type: BLOOD SPECIMENOrdering Facility: [facility] Address: [address] [place] [address] Performed By: #### 5 8410-2 ####[facility]ATORYCLIA [id number] [address] MCH (RBC) [Entitic mass] 31.7 pg Normal 26.0-34.0 [facility] Comment on above: Order Comment: Speci men Type: BLOOD SPECIMENOrdering Facility: [facility] Address: [address] [place] [address] Performed By: #### 5 8410-2 ####[facility]ATORYCLIA [id number] [address] MCHC (RBC) [Mass/Vol] 32.2 g/dL Normal 30.5-36.0 [facility] Comment on above: Order Comment: Speci men Type: BLOOD SPECIMENOrdering Facility: [facility] Address: [address] [place] [address] Performed By: #### 5 8410-2 ####[facility]ATORYCLIA [id number] [address] MCV (RBC) [Entitic vol] 98.2 fL Normal 80.0-100.0 [facility] Comment on above: Order Comment: Speci men Type: BLOOD SPECIMENOrdering Facility: [facility] Address: [address] [place] [address] Performed By: #### 5 8410-2 ####[facility]ATORYCLIA [id number] [address] Nucleated RBC (Bld) [#/Vol] 10*3/uL Normal <0.01 [facility] Comment on above: Order Comment: Speci men Type: BLOOD SPECIMENOrdering Facility: [facility] Address: [address] [place] [address] Performed By: #### 5 8410-2 ####[facility]ATORYCLIA [id number] [address] [place] Platelet mean volume (Bld) [Entitic vol] 9.7 fL Normal 9.0-12.7 [facility] Comment on above: Order Comment: Speci men Type: BLOOD SPECIMENOrdering Facility: [facility] Address: [address] [place] [address] Performed By: #### 5 8410-2 ####[facility]ATORYCLIA [id number] [address] [place] Platelets (Bld) [#/Vol] 206 10*3/uL Normal 150-400 [facility] Comment on above: Order Comment: Speci men Type: BLOOD SPECIMENOrdering Facility: [facility] Address: [address] [place] [address] Performed By: #### 5 8410-2 ####[facility]ATORYCLIA [id number] [place] [address] [place] RBC (Bld) [#/Vol] 2.78 10*6/uL Low 3.90-5.20 [facility] Comment on above: Order Comment: Speci men Type: BLOOD SPECIMENOrdering Facility: [facility] Address: [address] [place], [place] [address] Performed By: #### 5 8410-2 ####[facility]ATORYCLIA [id number] [place] [address] [place] WBC (Bld) [#/Vol] 8.28 10*3/uL Normal 3.70-11.00 [facility] Comment on above: Order Comment: Speci men Type: BLOOD SPECIMENOrdering Facility: [facility] Address: [address] [place] [address] Performed By: #### 5 8410-2 ####[facility]ATORYCLIA [id number] [place] [address] [place] CONSULT PROGon 10-31-2021 CONSULT PROG Normal [facility] Magnesium SerPl-mCncon 10-31 Magnesium [Mass/Vol] 2.1 mg/dL Normal 1.7-2.3 [facility] Comment on above: Order Comment: Speci men Type: BLOOD SPECIMENOrdering Facility: [facility] Address: [address] [place] [address] Performed By: #### 1 9123-9, 2777-1, 07354-4 ####[facility]ATORYCLIA [id number] [address] [place] NURSING PROGon 10-31-2021 NURSING PROG Normal [facility] Osmolality SerPlon Osmolality [Osmolality] 307 mosm/kg High 275-300 [facility] Comment on above: Order Comment: Speci men Type: BLOOD SPECIMENOrdering Facility: [facility] Address: [address] [place] [address] Performed By: #### 2 692-2 ####[facility]ATORYCLIA [id number] [place] [address] [place] Osmolality Uron 10-31-2021 Osmolality (U) [Osmolality] 1010 mosm/kg Normal 50-1,200 [facility] Comment on above: Order Comment: Speci men Type: URINE SPECIMENOrdering Facility: [facility] Address: [address] [place] [address] Performed By: #### 2 695-5, 5811-5 ####[facility]ORATORYCLIA [id number] [place] [address] [place] Phosphate SerPl-mCncon 10-31 Phosphate [Mass/Vol] 3.3 mg/dL Normal 2.7-4.8 [facility] Comment on above: Order Comment: Speci men Type: BLOOD SPECIMENOrdering Facility: [facility] Address: [address] [place], [place] [address] Performed By: #### 1 9123-9, 2777-1, 03701-0 ####[facility]ORATORYCLIA [id number] [place] [address] [place] Sodium ?Tm Ur-sCncon 022 Sodium Unsp time (U) [Moles/Vol] 83 mmol/L Normal 14-216 [facility] Comment on above: Order Comment: Speci men Type: URINE SPECIMENOrdering Facility: [facility] Address: [address] [place] [address] Performed By: #### 3 5678-2 ####[facility]ORATORYCLIA [id number] [address] STATES OF [facility] Specific gravity Test strip (U) [Rel density]on 10-31-2021 Specific gravity (U) [Rel density] >1.035 High 1.006-1.029 [facility] Comment on above: Order Comment: Speci men Type: URINE SPECIMENOrdering Facility: [facility] Address: [address] [place] [address] Performed By: #### 2 695-5, 5811-5 ####[facility]ORATORYCLIA [id number] [place] [address] [place] XR CHEST 1V FRONTALon 2021 XR CHEST 1V FRONTAL Normal [facility] ALLIED HEALTHon 10-30-2021 ALLIED HEALTH Normal [facility] Basic metabolic 2000 panelon 10-30-2021 Anion gap [Moles/Vol] 8 mmol/L Low 9-18 [facility] Comment on above: Order Comment: Speci men Type: BLOOD SPECIMENOrdering Facility: [facility] Address: [address] [place] [address] Performed By: #### 2 777-1, 04005-6, 23215-7 ####[facility]ORATORYCLIA [id number] [place] [address] [place] Calcium [Mass/Vol] 8.4 mg/dL Low 8.5-10.2 [facility] Comment on above: Order Comment: Speci men Type: BLOOD SPECIMENOrdering Facility: [facility] Address: [address] [place] [address] Performed By: #### 2 777-1, 62953-1, ####[facility]ORATORYCLIA [id number] [place] [address] [place] Chloride [Moles/Vol] 112 mmol/L High 97-105 [facility] Comment on above: Order Comment: Speci men Type: BLOOD SPECIMENOrdering Facility: [facility] Address: [address] [place] [address] Performed By: #### 2 777-1, , ####[facility]ORATORYCLIA [id number] [address] STATES OF [facility] CO2 [Moles/Vol] 25 mmol/L Normal 22-30 [facility] Comment on above: Order Comment: Speci men Type: BLOOD SPECIMENOrdering Facility: [facility] Address: [address] [place] [address] Performed By: #### 2 777-1, , ####[facility]ORATORYCLIA [id number] [address] [place] Creatinine [Mass/Vol] 0.43 mg/dL Low 0.58-0.96 [facility] Comment on above: Order Comment: Speci men Type: BLOOD SPECIMENOrdering Facility: [facility] Address: [address] [place] [address] Performed By: #### 2 777-1, 14425-5, ####[facility]ORATORYCLIA [id number] [address] ESTIMATED GLOMERULAR FILTRATION RATE 107 mL/min/1.73m??? Normal >=60 [facility] Comment on above: Order Comment: Speci men Type: BLOOD SPECIMENOrdering Facility: [facility] Address: [address] [place] [address] Result Comment: Ameena mated Glomerular Filtration Rate (eGFR) is calculated using the 2020 CKD-EPI creatinine equation. This equation utilizes serum creatinine, sex, and age as parameters. The creatinine assay has traceable calibration to isotope dilution-mass spectrometry. Refer to KDIGO guidelines for clinical interpretation. In patients with unstable renal function, e.g. those with acute kidney injury, the eGFR may not accurately reflect actual GFR. Performed By: #### 2 777-1, 80677-6, ####[facility]PITALCLIA [id number] [place] [address] [place] Glucose [Mass/Vol] 180 mg/dL High 74-99 [facility] Comment on above: Order Comment: Lauren santana Type: BLOOD SPECIMENOrdering Facility: [facility] Address: [address] [place], [place] [address] Result Comment: The [place] [employer] (ADA) provides guidance for cutoff values for fasting glucose and random glucose. The ADA defines fasting as no caloric intake for at least 8 hours. Fasting plasma glucose results between 100 to 125 mg/dL indicate increased risk for diabetes (prediabetes).Fasting plasma glucose results greater than or equal to 126 mg/dL meet the criteria for diagnosis of diabetes. In the absence of unequivocal hyperglycemia, results should be confirmed by repeat testing. In a patient with classic symptoms of hyperglycemia or hyperglycemic crisis, random plasma glucose results greater than or equal to 200 mg/dL meet the criteria for diagnosis of diabetes.Reference: Standards of Medical Care in Diabetes 2016, [place] [employer]. Diabetes Care. 2016.39(Suppl 1). Performed By: #### 2 777-1, 00903-1, ####[facility] LABORATORYIA [id number] [place] [address] [place] Potassium [Moles/Vol] 3.7 mmol/L Normal 3.7-5.1 [facility] Comment on above: Order Comment: Lauren santana Type: BLOOD SPECIMENOrdering Facility: [facility] Address: [address] [place], [place] [id number] Performed By: #### 2 777-1, 39107-0, ####[facility]ORATORYCLIA [id number] [address] STATES OF [facility] Sodium [Moles/Vol] 145 mmol/L High 136-144 [facility] Comment on above: Order Comment: Speci men Type: BLOOD SPECIMENOrdering Facility: [facility] Address: [address] [place] [address] Performed By: #### 2 777-1, 80598-8, 30920-3 ####[facility]ORATORYCLIA [id number] [address] STATES [facility] Urea nitrogen [Mass/Vol] 15 mg/dL Normal 7-21 [facility] Comment on above: Order Comment: Speci men Type: BLOOD SPECIMENOrdering Facility: [facility] Address: [address] [place] [address] Performed By: #### 2 777-1, 08058-4, 75356-3 ####[facility] HOSPITALCLIA [id number] [address] CALCIUM IONIZED Bon 10-31-19 Calcium.ionized (BldV) [Mass/Vol] 1.18 mmol/L Normal 1.08-1.30 [facility] Comment on above: Order Comment: Speci men Type: BLOOD SPECIMENOrdering Facility: [facility] Address: [address] [place] [address] Performed By: #### I CA ####[facility]ATORYCLIA [id number] [address] Calcium.ionized adjusted to pH 7.4 (Bld) [Moles/Vol] 1.17 mmol/L Normal 1.08-1.30 [facility] Comment on above: Order Comment: Speci men Type: BLOOD SPECIMENOrdering Facility: [facility] Address: [address] [place] [address] Performed By: #### I CA ####[facility]ORATORYCLIA [id number] [address] [place] CASE MANAGEMon 10-30-2021 CASE MANAGEM Normal [facility] CBC panel Auto (Bld)on 10-30 Erythrocyte distribution width (RBC) [Ratio] 20.3 % High 11.5-15.0 [facility] Comment on above: Order Comment: Speci men Type: BLOOD SPECIMENOrdering Facility: [facility] Address: [address] [place] [address] Performed By: #### 5 8410-2 ####[facility]ATORYCLIA [id number] [address] Hematocrit (Bld) [Volume fraction] 29.6 % Low 36.0-46.0 [facility] Comment on above: Order Comment: Speci men Type: BLOOD SPECIMENOrdering Facility: [facility] Address: [address] [place] [address] Performed By: #### 5 8410-2 ####[facility]ORATORYCLIA [id number] [address] OF [facility] Hemoglobin (Bld) [Mass/Vol] 9.4 g/dL Low 11.5-15.5 [facility] Comment on above: Order Comment: Speci men Type: BLOOD SPECIMENOrdering Facility: [facility] Address: [address] [place] [address] Performed By: #### 5 8410-2 ####[facility]ORATORYCLIA [id number] [address] STATES [facility] MCH (RBC) [Entitic mass] 31.4 pg Normal 26.0-34.0 [facility] Comment on above: Order Comment: Speci men Type: BLOOD SPECIMENOrdering Facility: [facility] Address: [address] [place] [address] Performed By: #### 5 8410-2 ####[facility]ATORYCLIA [id number] [address] MCHC (RBC) [Mass/Vol] 31.8 g/dL Normal 30.5-36.0 [facility] Comment on above: Order Comment: Speci men Type: BLOOD SPECIMENOrdering Facility: [facility] Address: [address] [address] Performed By: #### 5 8410-2 ####[facility]ATORYCLIA [id number] [address] MCV (RBC) [Entitic vol] 99.0 fL Normal 80.0-100.0 [facility] Comment on above: Order Comment: Speci men Type: BLOOD SPECIMENOrdering Facility: [facility] Address: [address] [place] [address] Performed By: #### 5 8410-2 ####[facility]ATORYCLIA [id number] [address] Nucleated RBC (Bld) [#/Vol] 10*3/uL Normal <0.01 [facility] Comment on above: Order Comment: Speci men Type: BLOOD SPECIMENOrdering Facility: [facility] Address: [address] [place] [address] Performed By: #### 5 8410-2 ####[facility]ATORYCLIA [id number] [address] Platelet mean volume (Bld) [Entitic vol] 9.6 fL Normal 9.0-12.7 [facility] Comment on above: Order Comment: Speci men Type: BLOOD SPECIMENOrdering Facility: [facility] Address: [address] [place] [address] Performed By: #### 5 8410-2 ####[facility]ATORYCLIA [id number] [address] Platelets (Bld) [#/Vol] 206 10*3/uL Normal 150-400 [facility] Comment on above: Order Comment: Speci men Type: BLOOD SPECIMENOrdering Facility: [facility] Address: [address] [place] [address] Performed By: #### 5 8410-2 ####[facility]ATORYCLIA [id number] [address] [place] RBC (Bld) [#/Vol] 2.99 10*6/uL Low 3.90-5.20 [facility] Comment on above: Order Comment: Speci men Type: BLOOD SPECIMENOrdering Facility: [facility] Address: [address] [place] [address] Performed By: #### 5 8410-2 ####[facility]ATORYCLIA [id number] [address] STATES OF [facility] WBC (Bld) [#/Vol] 8.78 10*3/uL Normal 3.70-11.00 [facility] Comment on above: Order Comment: Speci men Type: BLOOD SPECIMENOrdering Facility: [facility] Address: [address] [place] [address] Performed By: #### 5 8410-2 ####[facility]ORATORYCLIA [id number] [address] OF [facility] CONSULT PROGon 10-30-2021 CONSULT PROG Normal [facility] CT BRAIN WO IVCONon 10-31-19 CT BRAIN WO IVCON Normal [facility] Magnesium SerPl-mCncon 10-30 Magnesium [Mass/Vol] 2.1 mg/dL Normal 1.7-2.3 [facility] Comment on above: Order Comment: Speci men Type: BLOOD SPECIMENOrdering Facility: [facility] Address: [address] [place] [address] Performed By: #### 2 777-1, 58191-0, 55490-8 ####[facility]ORATORYCLIA [id number] [address] OF [place] NURSING PROGon 10-30-2021 NURSING PROG Normal [facility] NURSING PROG Normal [facility] NURSING PROG Normal [facility] NUTRITIONon 10-30-2021 NUTRITION Normal [facility] Phosphate SerPl-mCncon 10-30 Phosphate [Mass/Vol] 2.5 mg/dL Low 2.7-4.8 [facility] Comment on above: Order Comment: Speci men Type: BLOOD SPECIMENOrdering Facility: [facility] Address: [address] [place] [address] Performed By: #### 2 777-1, 40948-9, 57819-3 ####[facility]ORATORYCLIA [id number] [place] [address] [place] XR CHEST 1V FRONTALon 2021 XR CHEST 1V FRONTAL Normal [facility] ALLIED HEALTHon 10-29-2021 ALLIED HEALTH Normal [facility] ALLIED HEALTH Normal [facility] ARTERIAL BLOOD GASESon 10-29 BASE DEFICIT, ARTERIAL -2 mmol/L Normal -2-0 [facility] Comment on above: Order Comment: Speci men Type: ARTERIAL BLOOD SPECIMENOrdering Facility: [facility] Address: [address] [place] [address] Performed By: #### A LLBG ####[facility]ORATORYCLIA [id number] [address] [place] Body temperature 97.7 [degF] Normal [facility] Comment on above: Order Comment: Speci men Type: ARTERIAL BLOOD SPECIMENOrdering Facility: [facility] Address: [address] [place] [address] Performed By: #### A LLBG ####[facility]ORATORYCLIA [id number] [place] [address] [place] CALCIUM IONIZED, PH CORRECTED 1.11 mmol/L Normal 1.08-1.30 [facility] Comment on above: Order Comment: Speci men Type: ARTERIAL BLOOD SPECIMENOrdering Facility: [facility] Address: [address] [place] [address] Performed By: #### A LLBG ####[facility]ORATORYCLIA [id number] [place] [address] [place] Calcium.ionized (BldV) [Mass/Vol] 1.11 mmol/L Normal 1.08-1.30 [facility] Comment on above: Order Comment: Speci men Type: ARTERIAL BLOOD SPECIMENOrdering Facility: [facility] Address: [address] [place], [place] [id number] Performed By: #### A LLBG ####[facility]ORATORYCLIA [id number] [address] Carboxyhemoglobin (BldA) [Mass fraction] 1.4 % Normal 0.0-2.0 [facility] Comment on above: Order Comment: Speci men Type: ARTERIAL BLOOD SPECIMENOrdering Facility: [facility] Address: [address] [place] [address] Result Comment: Carb oxyhemoglobin Reference Range for Smokers: 2.0-8.0% Performed By: #### A LLBG ####[facility]ORATORYCLIA [id number] [address] CO2 (Bld) [Partial pressure] 35 mm Hg Low 36-46 [facility] Comment on above: Order Comment: Speci men Type: ARTERIAL BLOOD SPECIMENOrdering Facility: [facility] Address: [address] [place] [address] Performed By: #### A LLBG ####[facility]ORATORYCLIA [id number] [address] [place] CO2 [Moles/Vol] 20 mmol/L Low 22-28 [facility] Comment on above: Order Comment: Speci men Type: ARTERIAL BLOOD SPECIMENOrdering Facility: [facility] Address: [address] [place] [address] Performed By: #### A LLBG ####[facility]ORATORYCLIA [id number] [address] CO2 adjusted to patient's actual temperature (Bld) [Partial pressure] 34 mmHg Low 36-46 [facility] Comment on above: Order Comment: Speci men Type: ARTERIAL BLOOD SPECIMENOrdering Facility: [facility] Address: [address] [place] [address] Performed By: #### A LLBG ####[facility]ORATORYCLIA [id number] [address] [place] Glucose [Mass/Vol] 157 mg/dL High 60-105 [facility] Comment on above: Order Comment: Speci men Type: ARTERIAL BLOOD SPECIMENOrdering Facility: [facility] Address: [address] [place] [address] Performed By: #### A LLBG ####[facility]ORATORYCLIA [id number] [address] [place] HCO3 (Bld) [Moles/Vol] 22 mmol/L Normal 22-26 [facility] Comment on above: Order Comment: Speci men Type: ARTERIAL BLOOD SPECIMENOrdering Facility: [facility] Address: [address] [place] [address] Performed By: #### A LLBG ####[facility]ORATORYCLIA [id number] [address] [place] Hematocrit (Bld) [Volume fraction] 29.8 % Low 36.0-46.0 [facility] Comment on above: Order Comment: Speci men Type: ARTERIAL BLOOD SPECIMENOrdering Facility: [facility] Address: [address] [place] [address] Performed By: #### A LLBG ####[facility]ORATORYCLIA [id number] [address] [place] Hemoglobin (Bld) [Mass/Vol] 9.6 g/dL Low 11.5-15.5 [facility] Comment on above: Order Comment: Speci men Type: ARTERIAL BLOOD SPECIMENOrdering Facility: [facility] Address: [address] [place] [address] Performed By: #### A LLBG ####[facility]ORATORYCLIA [id number] [address] [place] Methemoglobin (Bld) [Mass fraction] % Normal 0.0-1.5 [facility] Comment on above: Order Comment: Speci men Type: ARTERIAL BLOOD SPECIMENOrdering Facility: [facility] Address: [address] [place] [address] Performed By: #### A LLBG ####[facility]ORYCLIA [id number] [address] OF [place] O2 THERAPY Ventilator Normal [facility] Comment on above: Order Comment: Speci men Type: ARTERIAL BLOOD SPECIMENOrdering Facility: [facility] Address: [address] [place] [address] Performed By: #### A LLBG ####[facility]ORATORYCLIA [id number] [address] [place] Oxygen (Bld) [Partial pressure] 112 mm Hg High 85-95 [facility] Comment on above: Order Comment: Speci men Type: ARTERIAL BLOOD SPECIMENOrdering Facility: [facility] Address: [address] [place] [address] Performed By: #### A LLBG ####[facility]ATORYCLIA [id number] [address] [place] Oxygen adjusted to patient's actual temperature (Bld) [Partial pressure] 109 mmHg High 85-95 [facility] Comment on above: Order Comment: Speci men Type: ARTERIAL BLOOD SPECIMENOrdering Facility: [facility] Address: [address] [place] [address] Performed By: #### A LLBG ####[facility]ATORYCLIA [id number] [address] [place] OXYGEN SATURATION, ARTERIAL 99 % High 95-98 [facility] Comment on above: Order Comment: Speci men Type: ARTERIAL BLOOD SPECIMENOrdering Facility: [facility] Address: [address] [place] [address] Performed By: #### A LLBG ####[facility]ATORYCLIA [id number] [address] [place] Oxyhemoglobin (BldA) [Mass fraction] 97 % Normal 95-98 [facility] Comment on above: Order Comment: Speci men Type: ARTERIAL BLOOD SPECIMENOrdering Facility: [facility] Address: [address] [address] Performed By: #### A LLBG ####[facility]ATORYCLIA [id number] [address] [place] pH (Bld) 7.40 [pH] Normal 7.35-7.45 [facility] Comment on above: Order Comment: Speci men Type: ARTERIAL BLOOD SPECIMENOrdering Facility: [facility] Address: [address] [place] [address] Performed By: #### A LLBG ####[facility]ATORYCLIA [id number] [address] [place] pH adjusted to patient's actual temperature (Bld) 7.41 Normal 7.35-7.45 [facility] Comment on above: Order Comment: Speci men Type: ARTERIAL BLOOD SPECIMENOrdering Facility: [facility] Address: [address] [place] [address] Performed By: #### A LLBG ####[facility]ATORYCLIA [id number] [address] [place] Potassium [Moles/Vol] 3.3 mmol/L Low 3.5-5.0 [facility] Comment on above: Order Comment: Speci men Type: ARTERIAL BLOOD SPECIMENOrdering Facility: [facility] Address: [address] [place] [address] Performed By: #### A LLBG ####[facility]ORATORYCLIA [id number] [address] [place] Sodium [Moles/Vol] 144 mmol/L Normal 136-144 [facility] Comment on above: Order Comment: Speci men Type: ARTERIAL BLOOD SPECIMENOrdering Facility: [facility] Address: [address] [place] [address] Performed By: #### A LLBG ####[facility]ATORYCLIA [id number] [place] [address] [place] BASE DEFICIT, ARTERIAL -3 mmol/L Low -2-0 [facility] Comment on above: Order Comment: Speci men Type: ARTERIAL BLOOD SPECIMENOrdering Facility: [facility] Address: [address] [place] [address] Performed By: #### A LLBG ####[facility]ATORYCLIA [id number] [address] Body temperature 98.06 [degF] Normal [facility] Comment on above: Order Comment: Speci men Type: ARTERIAL BLOOD SPECIMENOrdering Facility: [facility] Address: [address] [place] [address] Performed By: #### A LLBG ####[facility]ATORYCLIA [id number] [address] OF [place] CALCIUM IONIZED, PH CORRECTED 1.13 mmol/L Normal 1.08-1.30 [facility] Comment on above: Order Comment: Speci men Type: ARTERIAL BLOOD SPECIMENOrdering Facility: [facility] Address: [address] [place] [address] Performed By: #### A LLBG ####[facility]ATORYCLIA [id number] [address] Calcium.ionized (BldV) [Mass/Vol] 1.12 mmol/L Normal 1.08-1.30 [facility] Comment on above: Order Comment: Speci men Type: ARTERIAL BLOOD SPECIMENOrdering Facility: [facility] Address: [address] [place] [address] Performed By: #### A LLBG ####[facility]ATORYCLIA [id number] [address] [place] Carboxyhemoglobin (BldA) [Mass fraction] 1.5 % Normal 0.0-2.0 [facility] Comment on above: Order Comment: Speci men Type: ARTERIAL BLOOD SPECIMENOrdering Facility: [facility] Address: [address] [place] [address] Result Comment: Carb oxyhemoglobin Reference Range for Smokers: 2.0-8.0% Performed By: #### A LLBG ####[facility]ATORYCLIA [id number] [address] [place] CO2 (Bld) [Partial pressure] 33 mm Hg Low 36-46 [facility] Comment on above: Order Comment: Speci men Type: ARTERIAL BLOOD SPECIMENOrdering Facility: [facility] Address: [address] [place] [address] Performed By: #### A LLBG ####[facility]ATORYCLIA [id number] [address] [place] CO2 [Moles/Vol] 19 mmol/L Low 22-28 [facility] Comment on above: Order Comment: Speci men Type: ARTERIAL BLOOD SPECIMENOrdering Facility: [facility] Address: [address] [place] [address] Performed By: #### A LLBG ####[facility]ATORYCLIA [id number] [address] CO2 adjusted to patient's actual temperature (Bld) [Partial pressure] 33 mmHg Low 36-46 [facility] Comment on above: Order Comment: Speci men Type: ARTERIAL BLOOD SPECIMENOrdering Facility: [facility] Address: [address] [place] [address] Performed By: #### A LLBG ####[facility]ATORYCLIA [id number] [address] STATES [facility] Glucose [Mass/Vol] 149 mg/dL High 60-105 [facility] Comment on above: Order Comment: Speci men Type: ARTERIAL BLOOD SPECIMENOrdering Facility: [facility] Address: [address] [place] [address] Performed By: #### A LLBG ####[facility]ATORYCLIA [id number] [address] [place] HCO3 (Bld) [Moles/Vol] 21 mmol/L Low 22-26 [facility] Comment on above: Order Comment: Speci men Type: ARTERIAL BLOOD SPECIMENOrdering Facility: [facility] Address: [address] [place] [address] Performed By: #### A LLBG ####[facility]ATORYCLIA [id number] [address] [place] Hematocrit (Bld) [Volume fraction] 30.4 % Low 36.0-46.0 [facility] Comment on above: Order Comment: Speci men Type: ARTERIAL BLOOD SPECIMENOrdering Facility: [facility] Address: [address] [place] [address] Performed By: #### A LLBG ####[facility]ATORYCLIA [id number] [place] [address] [place] Hemoglobin (Bld) [Mass/Vol] 9.8 g/dL Low 11.5-15.5 [facility] Comment on above: Order Comment: Speci men Type: ARTERIAL BLOOD SPECIMENOrdering Facility: [facility] Address: [address] [place] [address] Performed By: #### A LLBG ####[facility]ATORYCLIA [id number] [address] [place] Methemoglobin (Bld) [Mass fraction] 1.1 % Normal 0.0-1.5 [facility] Comment on above: Order Comment: Speci men Type: ARTERIAL BLOOD SPECIMENOrdering Facility: [facility] Address: [address] [place] [address] Performed By: #### A LLBG ####[facility]ORATORYCLIA [id number] [address] [place] O2 THERAPY Ventilator Normal [facility] Comment on above: Order Comment: Speci men Type: ARTERIAL BLOOD SPECIMENOrdering Facility: [facility] Address: [address] [place] [address] Performed By: #### A LLBG ####[facility]ATORYCLIA [id number] [address] [place] Oxygen (Bld) [Partial pressure] 107 mm Hg High 85-95 [facility] Comment on above: Order Comment: Speci men Type: ARTERIAL BLOOD SPECIMENOrdering Facility: [facility] Address: [address] [place] [address] Performed By: #### A LLBG ####[facility]ORATORYCLIA [id number] [address] OF [facility] Oxygen adjusted to patient's actual temperature (Bld) [Partial pressure] 105 mmHg High 85-95 [facility] Comment on above: Order Comment: Speci men Type: ARTERIAL BLOOD SPECIMENOrdering Facility: [facility] Address: [address] [place] [address] Performed By: #### A LLBG ####[facility]ATORYCLIA [id number] [address] [place] OXYGEN SATURATION, ARTERIAL 99 % High 95-98 [facility] Comment on above: Order Comment: Speci men Type: ARTERIAL BLOOD SPECIMENOrdering Facility: [facility] Address: [address] [place] [address] Performed By: #### A LLBG ####[facility]ATORYCLIA [id number] [address] Oxyhemoglobin (BldA) [Mass fraction] 96 % Normal 95-98 [facility] Comment on above: Order Comment: Speci men Type: ARTERIAL BLOOD SPECIMENOrdering Facility: [facility] Address: [address] [place] [address] Performed By: #### A LLBG ####[facility]ATORYCLIA [id number] [address] [place] pH (Bld) 7.41 [pH] Normal 7.35-7.45 [facility] Comment on above: Order Comment: Speci men Type: ARTERIAL BLOOD SPECIMENOrdering Facility: [facility] Address: [address] [place] [address] Performed By: #### A LLBG ####[facility]ATORYCLIA [id number] [address] pH adjusted to patient's actual temperature (Bld) 7.42 Normal 7.35-7.45 [facility] Comment on above: Order Comment: Speci men Type: ARTERIAL BLOOD SPECIMENOrdering Facility: [facility] Address: [address] [place] [address] Performed By: #### A LLBG ####[facility]ATORYCLIA [id number] [address] [place] Potassium [Moles/Vol] 3.4 mmol/L Low 3.5-5.0 [facility] Comment on above: Order Comment: Speci men Type: ARTERIAL BLOOD SPECIMENOrdering Facility: [facility] Address: [address] [place] [address] Performed By: #### A LLBG ####[facility]ATORYCLIA [id number] [address] STATES OF [facility] Sodium [Moles/Vol] 143 mmol/L Normal 136-144 [facility] Comment on above: Order Comment: Speci men Type: ARTERIAL BLOOD SPECIMENOrdering Facility: [facility] Address: [address] [place] [address] Performed By: #### A LLBG ####[facility]ORATORYCLIA [id number] [address] OF [facility] CASE MGT INIT ASSESon 2021 CASE MGT INIT ASSES Normal [facility] CBC panel Auto (Bld)on 10-29 Erythrocyte distribution width (RBC) [Ratio] 20.2 % High 11.5-15.0 [facility] Comment on above: Order Comment: Speci men Type: BLOOD SPECIMENOrdering Facility: [facility] Address: [address] [place] [address] Performed By: #### 5 8410-2 ####[facility]ORYCLIA [id number] [address] STATES OF [facility] Hematocrit (Bld) [Volume fraction] 30.9 % Low 36.0-46.0 [facility] Comment on above: Order Comment: Speci men Type: BLOOD SPECIMENOrdering Facility: [facility] Address: [address] [place] [address] Performed By: #### 5 8410-2 ####[facility] LABORATORYCLIA [id number] Hemoglobin (Bld) [Mass/Vol] 10.0 g/dL Low 11.5-15.5 [facility] Comment on above: Order Comment: Speci men Type: BLOOD SPECIMENOrdering Facility: [facility] Address: [address] [place] [address] Performed By: #### 5 8410-2 ####[facility] LABORATORYCLIA [id number] MCH (RBC) [Entitic mass] 31.4 pg Normal 26.0-34.0 [facility] Comment on above: Order Comment: Speci men Type: BLOOD SPECIMENOrdering Facility: [facility] Address: [address] [place] [address] Performed By: #### 5 8410-2 ####[facility]ATORYCLIA [id number] [address] MCHC (RBC) [Mass/Vol] 32.4 g/dL Normal 30.5-36.0 [facility] Comment on above: Order Comment: Speci men Type: BLOOD SPECIMENOrdering Facility: [facility] Address: [address] [place] [address] Performed By: #### 5 8410-2 ####[facility]ORYCLIA [id number] [address] MCV (RBC) [Entitic vol] 97.2 fL Normal 80.0-100.0 [facility] Comment on above: Order Comment: Speci men Type: BLOOD SPECIMENOrdering Facility: [facility] Address: [address] [place] [address] Performed By: #### 5 8410-2 ####[facility]ORYCLIA [id number] [address] Nucleated RBC (Bld) [#/Vol] 10*3/uL Normal <0.01 [facility] Comment on above: Order Comment: Speci men Type: BLOOD SPECIMENOrdering Facility: [facility] Address: [address] [place] [address] Performed By: #### 5 8410-2 ####[facility]ORYCLIA [id number] [address] Platelet mean volume (Bld) [Entitic vol] 9.2 fL Normal 9.0-12.7 [facility] Comment on above: Order Comment: Speci men Type: BLOOD SPECIMENOrdering Facility: [facility] Address: [address] [place] [address] Performed By: #### 5 8410-2 ####[facility]ORYCLIA [id number] [address] [place] Platelets (Bld) [#/Vol] 219 10*3/uL Normal 150-400 [facility] Comment on above: Order Comment: Speci men Type: BLOOD SPECIMENOrdering Facility: [facility] Address: [address] [place] [address] Performed By: #### 5 8410-2 ####[facility]ORYCLIA [id number] [address] [place] RBC (Bld) [#/Vol] 3.18 10*6/uL Low 3.90-5.20 [facility] Comment on above: Order Comment: Speci men Type: BLOOD SPECIMENOrdering Facility: [facility] Address: [address] [place] [address] Performed By: #### 5 8410-2 ####[facility]ORYCLIA [id number] [address] [place] WBC (Bld) [#/Vol] 8.51 10*3/uL Normal 3.70-11.00 [facility] Comment on above: Order Comment: Speci men Type: BLOOD SPECIMENOrdering Facility: [facility] Address: [address] [place] [address] Performed By: #### 5 8410-2 ####[facility]ORYCLIA [id number] [address] [place] Erythrocyte distribution width (RBC) [Ratio] 19.4 % High 11.5-15.0 [facility] Comment on above: Order Comment: Speci men Type: BLOOD SPECIMENOrdering Facility: [facility] Address: [address] [place] [address] Performed By: #### 5 8410-2 ####[facility]ATORYCLIA [id number] [address] OF [facility] Hematocrit (Bld) [Volume fraction] 29.2 % Low 36.0-46.0 [facility] Comment on above: Order Comment: Speci men Type: BLOOD SPECIMENOrdering Facility: [facility] Address: [address] [place] [address] Performed By: #### 5 8410-2 ####[facility]ORYCLIA [id number] [address] OF [facility] Hemoglobin (Bld) [Mass/Vol] 9.5 g/dL Low 11.5-15.5 [facility] Comment on above: Order Comment: Speci men Type: BLOOD SPECIMENOrdering Facility: [facility] Address: [address] [place] [address] Performed By: #### 5 8410-2 ####[facility]ORYCLIA [id number] [address] [place] MCH (RBC) [Entitic mass] 31.6 pg Normal 26.0-34.0 [facility] Comment on above: Order Comment: Speci men Type: BLOOD SPECIMENOrdering Facility: [facility] Address: [address] [place] [address] Performed By: #### 5 8410-2 ####[facility]ORYCLIA [id number] [address] MCHC (RBC) [Mass/Vol] 32.5 g/dL Normal 30.5-36.0 [facility] Comment on above: Order Comment: Speci men Type: BLOOD SPECIMENOrdering Facility: [facility] Address: [address] [place] [address] Performed By: #### 5 8410-2 ####[facility]ORYCLIA [id number] [address] MCV (RBC) [Entitic vol] 97.0 fL Normal 80.0-100.0 [facility] Comment on above: Order Comment: Speci men Type: BLOOD SPECIMENOrdering Facility: [facility] Address: [address] [place] [address] Performed By: #### 5 8410-2 ####[facility]ORYCLIA [id number] [address] Nucleated RBC (Bld) [#/Vol] 10*3/uL Normal <0.01 [facility] Comment on above: Order Comment: Speci men Type: BLOOD SPECIMENOrdering Facility: [facility] Address: [address] [place] [address] Performed By: #### 5 8410-2 ####[facility]ORYCLIA [id number] [address] Platelet mean volume (Bld) [Entitic vol] 9.0 fL Normal 9.0-12.7 [facility] Comment on above: Order Comment: Speci men Type: BLOOD SPECIMENOrdering Facility: [facility] Address: [address] [place] [address] Performed By: #### 5 8410-2 ####[facility]ORYCLIA [id number] [address] Platelets (Bld) [#/Vol] 200 10*3/uL Normal 150-400 [facility] Comment on above: Order Comment: Speci men Type: BLOOD SPECIMENOrdering Facility: [facility] Address: [address] [place] [address] Performed By: #### 5 8410-2 ####[facility]ORYCLIA [id number] [address] [place] RBC (Bld) [#/Vol] 3.01 10*6/uL Low 3.90-5.20 [facility] Comment on above: Order Comment: Speci men Type: BLOOD SPECIMENOrdering Facility: [facility] Address: [address] [place] [address] Performed By: #### 5 8410-2 ####[facility]ORYCLIA [id number] [address] STATES OF [facility] WBC (Bld) [#/Vol] 8.37 10*3/uL Normal 3.70-11.00 [facility] Comment on above: Order Comment: Speci men Type: BLOOD SPECIMENOrdering Facility: [facility] Address: [address] [place] [address] Performed By: #### 5 8410-2 ####[facility]ORYCLIA [id number] [address] CONSULT PROGon 10-29-2021 CONSULT PROG Normal [facility] Comprehensive metabolic 2000 panelon 10-29-2021 Albumin [Mass/Vol] 3.0 g/dL Low 3.9-4.9 [facility] Comment on above: Order Comment: Speci men Type: BLOOD SPECIMENOrdering Facility: [facility] Address: [address] [place] [address] Performed By: #### 1 9123-9, 25139-1, 2777-1 ####[facility]ORYCLIA [id number] [address] STATES OF [facility] ALP [Catalytic activity/Vol] 57 U/L Normal 34-123 [facility] Comment on above: Order Comment: Speci men Type: BLOOD SPECIMENOrdering Facility: [facility] Address: [address] [place] [address] Performed By: #### 1 9123-9, 33101-8, 2777-1 ####[facility]ORYCLIA [id number] [address] STATES OF [facility] ALT With P-5'-P [Catalytic activity/Vol] 8 U/L Normal 7-38 [facility] Comment on above: Order Comment: Speci men Type: BLOOD SPECIMENOrdering Facility: [facility] Address: [address] [place] [address] Performed By: #### 1 9123-9, 89618-1, 2777- ####[facility]ORYCLIA [id number] [address] STATES OF [facility] Anion gap [Moles/Vol] 9 mmol/L Normal 9-18 [facility] Comment on above: Order Comment: Speci men Type: BLOOD SPECIMENOrdering Facility: [facility] Address: [address] [place] [address] Performed By: #### 1 9123-9, 16392-4, 277- ####[facility]ORYCLIA [id number] [address] [place] AST With P-5'-P [Catalytic activity/Vol] 10 U/L Low 13-35 [facility] Comment on above: Order Comment: Speci men Type: BLOOD SPECIMENOrdering Facility: [facility] Address: [address] [place] [address] Performed By: #### 1 9123-9, 87991-9, 27702-15 ####[facility]ORYCLIA [id number] [address] [place] Bilirubin [Mass/Vol] 0.2 mg/dL Normal 0.2-1.3 [facility] Comment on above: Order Comment: Speci men Type: BLOOD SPECIMENOrdering Facility: [facility] Address: [address] [place] [address] Performed By: #### 1 9123-9, 13512-9, 2777- ####[facility]ATORYCLIA [id number] [address] OF [facility] Calcium [Mass/Vol] 7.8 mg/dL Low 8.5-10.2 [facility] Comment on above: Order Comment: Speci men Type: BLOOD SPECIMENOrdering Facility: [facility] Address: [address] [place] [address] Performed By: #### 1 9123-9, 47376-6, 2777-1 ####[facility]ORYCLIA [id number] [place] [address] [place] Chloride [Moles/Vol] 111 mmol/L High 97-105 [facility] Comment on above: Order Comment: Speci men Type: BLOOD SPECIMENOrdering Facility: [facility] Address: [address] [place] [address] Performed By: #### 1 9123-9, 36256-6, 2777- ####[facility]ORYCLIA [id number] [address] [place] CO2 [Moles/Vol] 22 mmol/L Normal 22-30 [facility] Comment on above: Order Comment: Speci men Type: BLOOD SPECIMENOrdering Facility: [facility] Address: [address] [place] [address] Performed By: #### 1 9123-9, 90606-5, 277- ####[facility]ORYCLIA [id number] [address] Creatinine [Mass/Vol] 0.41 mg/dL Low 0.58-0.96 [facility] Comment on above: Order Comment: Speci men Type: BLOOD SPECIMENOrdering Facility: [facility] Address: [address] [place] [address] Performed By: #### 1 9123-9, 27367-7, 2777- ####[facility]ORYCLIA [id number] [address] ESTIMATED GLOMERULAR FILTRATION RATE 109 mL/min/1.73m??? Normal >=60 [facility] Comment on above: Order Comment: Speci men Type: BLOOD SPECIMENOrdering Facility: [facility] Address: [address] [place] [address] Result Comment: Ameena mated Glomerular Filtration Rate (eGFR) is calculated using the 2020 CKD-EPI creatinine equation. This equation utilizes serum creatinine, sex, and age as parameters. The creatinine assay has traceable calibration to isotope dilution-mass spectrometry. Refer to KDIGO guidelines for clinical interpretation. In patients with unstable renal function, e.g. those with acute kidney injury, the eGFR may not accurately reflect actual GFR. Performed By: #### 1 9123-9, , 2776-08 ####[facility]ATORYCLIA [id number] [place] [address] [place] Glucose [Mass/Vol] 165 mg/dL High 74-99 [facility] Comment on above: Order Comment: Lauren santana Type: BLOOD SPECIMENOrdering Facility: [facility] Address: [address] [place] [id number] Result Comment: The [place] [employer] (ADA) provides guidance for cutoff values for fasting glucose and random glucose. The ADA defines fasting as no caloric intake for at least 8 hours. Fasting plasma glucose results between 100 to 125 mg/dL indicate increased risk for diabetes (prediabetes).Fasting plasma glucose results greater than or equal to 126 mg/dL meet the criteria for diagnosis of diabetes. In the absence of unequivocal hyperglycemia, results should be confirmed by repeat testing. In a patient with classic symptoms of hyperglycemia or hyperglycemic crisis, random plasma glucose results greater than or equal to 200 mg/dL meet the criteria for diagnosis of diabetes.Reference: Standards of Medical Care in Diabetes 2016, [place] [employer]. Diabetes Care. 2016.39(Suppl 1). Performed By: #### 1 9123-9, , 2776-08 ####[facility]ATORYCLIA [id number] [place] [address] [place] Potassium [Moles/Vol] 3.5 mmol/L Low 3.7-5.1 [facility] Comment on above: Order Comment: Lauren santana Type: BLOOD SPECIMENOrdering Facility: [facility] Address: [address] [place] [address] Performed By: #### 1 9123-9, , 2776-08 ####[facility]ATORYCLIA [id number] [place] [address] [place] Protein [Mass/Vol] 5.2 g/dL Low 6.3-8.0 [facility] Comment on above: Order Comment: Speci men Type: BLOOD SPECIMENOrdering Facility: [facility] Address: [address] [place] [address] Performed By: #### 1 9123-9, 94972-4, 2777-1 ####[facility]ATORYCLIA [id number] [place] [address] [place] Sodium [Moles/Vol] 142 mmol/L Normal 136-144 [facility] Comment on above: Order Comment: Speci men Type: BLOOD SPECIMENOrdering Facility: [facility] Address: [address] [place] [address] Performed By: #### 1 9123-9, 80489-6, 277- ####[facility]ORYCLIA [id number] [place] [address] [place] Urea nitrogen [Mass/Vol] 8 mg/dL Normal 7-21 [facility] Comment on above: Order Comment: Speci men Type: BLOOD SPECIMENOrdering Facility: [facility] Address: [address] [place] [address] Performed By: #### 1 9123-9, 13681-2, 2777 ####[facility]ORYCLIA [id number] [address] [place] Lactate (Bld) [Moles/Vol]on 10-29-2021 Lactate [Moles/Vol] 1.3 mmol/L Normal 0.5-2.2 [facility] Comment on above: Order Comment: Speci men Type: BLOOD SPECIMENOrdering Facility: [facility] Address: [address] [place] [address] Performed By: #### 3 2693-4 ####[facility]ATORYCLIA [id number] [place] [address] [place] Magnesium SerPl-mCncon 10-29 Magnesium [Mass/Vol] 2.4 mg/dL High 1.7-2.3 [facility] Comment on above: Order Comment: Speci men Type: BLOOD SPECIMENOrdering Facility: [facility] Address: [address] [place] [address] Performed By: #### 1 9123-9, 17289-3, 2777-1 ####[facility]ORYCLIA [id number] [place] [address] [place] NURSING PROGon 10-29-2021 NURSING PROG Normal [facility] NURSING PROG Normal [facility] Phosphate SerPl-mCncon 10-29 Phosphate [Mass/Vol] 2.4 mg/dL Low 2.7-4.8 [facility] Comment on above: Order Comment: Speci men Type: BLOOD SPECIMENOrdering Facility: [facility] Address: [address] [place] [address] Performed By: #### 1 9123-9, 19567-3, 2777-1 ####[facility]ORYCLIA [id number] [address] OF [facility] VITAMIN D 25 HYDROXYon 10-29 25-hydroxyvitamin D3 [Mass/Vol] 21.4 ng/mL Low 30.0-100.0 [facility] Comment on above: Order Comment: Speci men Type: BLOOD SPECIMENOrdering Facility: [facility] Address: [address] [place] [address] Result Comment: Clas sification of 25 [place] Vitamin D status:Deficiency: <= 20.0 ng/ml.Insufficientcy: 21.0-29.0 ng/ml.Sufficiency: >= 30.0 ng/ml. Performed By: #### V ITD ####[facility]ORYCLIA [id number] [address] [place] XR CHEST 1V FRONTALon 2021 XR CHEST 1V FRONTAL Normal [facility] XR CHEST 1V FRONTAL Normal [facility] ALLIED HEALTHon 10-28-2021 ALLIED HEALTH Normal [facility] ALLIED HEALTH Normal [facility] ALLIED HEALTH Normal [facility] ALLIED HEALTH Normal [facility] ANES POSTPROC EVALon 022 ANES POSTPROC EVAL Normal [facility] ANES POSTPROC EVAL Normal [facility] ANES PRE-OPon 10-28-2021 ANES PRE-OP Normal [facility] ANES PRE-OP Normal [facility] ARTERIAL BLOOD GASESon 10-28 BASE DEFICIT, ARTERIAL -3 mmol/L Low -2-0 [facility] Comment on above: Order Comment: Speci men Type: ARTERIAL BLOOD SPECIMENOrdering Facility: [facility] Address: [address] [place] [address] Performed By: #### A LLBG ####[facility]ORYCLIA [id number] [address] [place] Body temperature 98.6 [degF] Normal [facility] Comment on above: Order Comment: Speci men Type: ARTERIAL BLOOD SPECIMENOrdering Facility: [facility] Address: [address] [place] [address] Performed By: #### A LLBG ####[facility]ATORYCLIA [id number] [place] [address] [place] CALCIUM IONIZED, PH CORRECTED 1.13 mmol/L Normal 1.08-1.30 [facility] Comment on above: Order Comment: Speci men Type: ARTERIAL BLOOD SPECIMENOrdering Facility: [facility] Address: [address] [place] [address] Performed By: #### A LLBG ####[facility]ATORYCLIA [id number] [place] [address] [place] Calcium.ionized (BldV) [Mass/Vol] 1.13 mmol/L Normal 1.08-1.30 [facility] Comment on above: Order Comment: Speci men Type: ARTERIAL BLOOD SPECIMENOrdering Facility: [facility] Address: [address] [place] [address] Performed By: #### A LLBG ####[facility]ATORYCLIA [id number] [place] [address] [place] Carboxyhemoglobin (BldA) [Mass fraction] 1.5 % Normal 0.0-2.0 [facility] Comment on above: Order Comment: Speci men Type: ARTERIAL BLOOD SPECIMENOrdering Facility: [facility] Address: [address] [place] [address] Result Comment: Carb oxyhemoglobin Reference Range for Smokers: 2.0-8.0% Performed By: #### A LLBG ####[facility]ATORYCLIA [id number] [place] [address] [place] CO2 (Bld) [Partial pressure] 34 mm Hg Low 36-46 [facility] Comment on above: Order Comment: Speci men Type: ARTERIAL BLOOD SPECIMENOrdering Facility: [facility] Address: [address] [place] [address] Performed By: #### A LLBG ####[facility]ATORYCLIA [id number] [place] [address] [place] CO2 [Moles/Vol] 19 mmol/L Low 22-28 [facility] Comment on above: Order Comment: Speci men Type: ARTERIAL BLOOD SPECIMENOrdering Facility: [facility] Address: [address] [place] [address] Performed By: #### A LLBG ####[facility]ATORYCLIA [id number] [place] [address] [place] Glucose [Mass/Vol] 155 mg/dL High 60-105 [facility] Comment on above: Order Comment: Speci men Type: ARTERIAL BLOOD SPECIMENOrdering Facility: [facility] Address: [address] [place] [address] Performed By: #### A LLBG ####[facility]ORYCLIA [id number] [place] [address] [place] HCO3 (Bld) [Moles/Vol] 21 mmol/L Low 22-26 [facility] Comment on above: Order Comment: Speci men Type: ARTERIAL BLOOD SPECIMENOrdering Facility: [facility] Address: [address] [place] [address] Performed By: #### A LLBG ####[facility]ATORYCLIA [id number] [address] [place] Hematocrit (Bld) [Volume fraction] 31.9 % Low 36.0-46.0 [facility] Comment on above: Order Comment: Speci men Type: ARTERIAL BLOOD SPECIMENOrdering Facility: [facility] Address: [address] [place] [address] Performed By: #### A LLBG ####[facility]ATORYCLIA [id number] [address] [place] Hemoglobin (Bld) [Mass/Vol] 10.3 g/dL Low 11.5-15.5 [facility] Comment on above: Order Comment: Speci men Type: ARTERIAL BLOOD SPECIMENOrdering Facility: [facility] Address: [address] [place] [address] Performed By: #### A LLBG ####[facility]ORYCLIA [id number] [address] [place] Methemoglobin (Bld) [Mass fraction] 1.1 % Normal 0.0-1.5 [facility] Comment on above: Order Comment: Speci men Type: ARTERIAL BLOOD SPECIMENOrdering Facility: [facility] Address: [address] [place] [address] Performed By: #### A LLBG ####[facility]ATORYCLIA [id number] [address] [place] O2 THERAPY Ventilator Normal [facility] Comment on above: Order Comment: Speci men Type: ARTERIAL BLOOD SPECIMENOrdering Facility: [facility] Address: [address] [place] [address] Result Comment: 30% Performed By: #### A LLBG ####[facility]ATORYCLIA [id number] [address] [place] Oxygen (Bld) [Partial pressure] 92 mm Hg Normal 85-95 [facility] Comment on above: Order Comment: Speci men Type: ARTERIAL BLOOD SPECIMENOrdering Facility: [facility] Address: [address] [place] [address] Performed By: #### A LLBG ####[facility]ORYCLIA [id number] [address] [place] OXYGEN SATURATION, ARTERIAL 98 % Normal 95-98 [facility] Comment on above: Order Comment: Speci men Type: ARTERIAL BLOOD SPECIMENOrdering Facility: [facility] Address: [address] [place] [address] Performed By: #### A LLBG ####[facility]ORYCLIA [id number] [address] [place] Oxyhemoglobin (BldA) [Mass fraction] 96 % Normal 95-98 [facility] Comment on above: Order Comment: Speci men Type: ARTERIAL BLOOD SPECIMENOrdering Facility: [facility] Address: [address] [place] [address] Performed By: #### A LLBG ####[facility]ORYCLIA [id number] [address] [place] pH (Bld) 7.41 [pH] Normal 7.35-7.45 [facility] Comment on above: Order Comment: Speci men Type: ARTERIAL BLOOD SPECIMENOrdering Facility: [facility] Address: [address] [place] [address] Performed By: #### A LLBG ####[facility]ORYCLIA [id number] [address] [place] Potassium [Moles/Vol] 3.4 mmol/L Low 3.5-5.0 [facility] Comment on above: Order Comment: Speci men Type: ARTERIAL BLOOD SPECIMENOrdering Facility: [facility] Address: [address] [place] [address] Performed By: #### A LLBG ####[facility]ORYCLIA [id number] [address] [place] Sodium [Moles/Vol] 145 mmol/L High 136-144 [facility] Comment on above: Order Comment: Speci men Type: ARTERIAL BLOOD SPECIMENOrdering Facility: [facility] Address: [address] [place] [address] Performed By: #### A LLBG ####[facility] LABORATORYCLIA [id number] [address] BASE DEFICIT, ARTERIAL -2 mmol/L Normal -2-0 [facility] Comment on above: Order Comment: Speci men Type: ARTERIAL BLOOD SPECIMENOrdering Facility: [facility] [facility] Address: [address] [place] [address] Performed By: #### A LLBG ####[facility]ORATORYCLIA [id number] [address] Body temperature 98.6 [degF] Normal [facility] Comment on above: Order Comment: Speci men Type: ARTERIAL BLOOD SPECIMENOrdering Facility: [facility] Address: [address] [place] [address] Performed By: #### A LLBG ####[facility]ORATORYCLIA [id number] [address] STATES [facility] CALCIUM IONIZED, PH CORRECTED 1.04 mmol/L Low 1.08-1.30 [facility] Comment on above: Order Comment: Speci men Type: ARTERIAL BLOOD SPECIMENOrdering Facility: [facility] Address: [address] [place] [address] Performed By: #### A LLBG ####[facility]ATORYCLIA [id number] [address] Calcium.ionized (BldV) [Mass/Vol] 1.03 mmol/L Low 1.08-1.30 [facility] Comment on above: Order Comment: Speci men Type: ARTERIAL BLOOD SPECIMENOrdering Facility: [facility] Address: [address] [place] [address] Performed By: #### A LLBG ####[facility]ATORYCLIA [id number] [address] Carboxyhemoglobin (BldA) [Mass fraction] 1.4 % Normal 0.0-2.0 [facility] Comment on above: Order Comment: Speci men Type: ARTERIAL BLOOD SPECIMENOrdering Facility: [facility] Address: [address] [place] [address] Result Comment: Carb oxyhemoglobin Reference Range for Smokers: 2.0-8.0% Performed By: #### A LLBG ####[facility]ATORYCLIA [id number] [address] [place] CO2 (Bld) [Partial pressure] 35 mm Hg Low 36-46 [facility] Comment on above: Order Comment: Speci men Type: ARTERIAL BLOOD SPECIMENOrdering Facility: [facility] Address: [address] [place] [address] Performed By: #### A LLBG ####[facility]ATORYCLIA [id number] [address] [place] CO2 [Moles/Vol] 20 mmol/L Low 22-28 [facility] Comment on above: Order Comment: Speci men Type: ARTERIAL BLOOD SPECIMENOrdering Facility: [facility] Address: [address] [place] [address] Performed By: #### A LLBG ####[facility]ATORYCLIA [id number] [address] [place] Glucose [Mass/Vol] 133 mg/dL High 60-105 [facility] Comment on above: Order Comment: Speci men Type: ARTERIAL BLOOD SPECIMENOrdering Facility: [facility] Address: [address] [place] [address] Performed By: #### A LLBG ####[facility]ATORYCLIA [id number] [address] [place] HCO3 (Bld) [Moles/Vol] 22 mmol/L Normal 22-26 [facility] Comment on above: Order Comment: Speci men Type: ARTERIAL BLOOD SPECIMENOrdering Facility: [facility] Address: [address] [place] [address] Performed By: #### A LLBG ####[facility]ATORYCLIA [id number] [address] [place] Hematocrit (Bld) [Volume fraction] 33.8 % Low 36.0-46.0 [facility] Comment on above: Order Comment: Speci men Type: ARTERIAL BLOOD SPECIMENOrdering Facility: [facility] Address: [address] [place] [address] Performed By: #### A LLBG ####[facility]ATORYCLIA [id number] [address] [place] Hemoglobin (Bld) [Mass/Vol] 10.9 g/dL Low 11.5-15.5 [facility] Comment on above: Order Comment: Speci men Type: ARTERIAL BLOOD SPECIMENOrdering Facility: [facility] Address: [address] [place] [address] Performed By: #### A LLBG ####[facility]ORYCLIA [id number] [address] [place] Methemoglobin (Bld) [Mass fraction] 1.1 % Normal 0.0-1.5 [facility] Comment on above: Order Comment: Speci men Type: ARTERIAL BLOOD SPECIMENOrdering Facility: [facility] Address: [address] [place] [address] Performed By: #### A LLBG ####[facility]ATORYCLIA [id number] [address] [place] O2 THERAPY Ventilator Normal [facility] Comment on above: Order Comment: Speci men Type: ARTERIAL BLOOD SPECIMENOrdering Facility: [facility] Address: [address] [place] [address] Performed By: #### A LLBG ####[facility]ATORYCLIA [id number] [address] [place] Oxygen (Bld) [Partial pressure] 76 mm Hg Low 85-95 [facility] Comment on above: Order Comment: Speci men Type: ARTERIAL BLOOD SPECIMENOrdering Facility: [facility] Address: [address] [place] [address] Performed By: #### A LLBG ####[facility]ATORYCLIA [id number] [address] OF [facility] OXYGEN SATURATION, ARTERIAL 96 % Normal 95-98 [facility] Comment on above: Order Comment: Speci men Type: ARTERIAL BLOOD SPECIMENOrdering Facility: [facility] Address: [address] [place] [address] Performed By: #### A LLBG ####[facility]ATORYCLIA [id number] [address] [place] Oxyhemoglobin (BldA) [Mass fraction] 94 % Low 95-98 [facility] Comment on above: Order Comment: Speci men Type: ARTERIAL BLOOD SPECIMENOrdering Facility: [facility] Address: [address] [place] [address] Performed By: #### A LLBG ####[facility]ATORYCLIA [id number] [address] [place] pH (Bld) 7.41 [pH] Normal 7.35-7.45 [facility] Comment on above: Order Comment: Speci men Type: ARTERIAL BLOOD SPECIMENOrdering Facility: [facility] Address: [address] [place] [address] Performed By: #### A LLBG ####[facility]ATORYCLIA [id number] [address] [place] Potassium [Moles/Vol] 3.7 mmol/L Normal 3.5-5.0 [facility] Comment on above: Order Comment: Speci men Type: ARTERIAL BLOOD SPECIMENOrdering Facility: [facility] Address: [address] [place] [address] Performed By: #### A LLBG ####[facility]ATORYCLIA [id number] [place] [address] [place] Sodium [Moles/Vol] 145 mmol/L High 136-144 [facility] Comment on above: Order Comment: Speci men Type: ARTERIAL BLOOD SPECIMENOrdering Facility: [facility] Address: [address] [place] [address] Performed By: #### A LLBG ####[facility]ATORYCLIA [id number] [place] [address] [place] CALCIUM IONIZED Bon 10-29-19 Calcium.ionized (BldV) [Mass/Vol] 1.02 mmol/L Low 1.08-1.30 [facility] Comment on above: Order Comment: Speci men Type: BLOOD SPECIMENOrdering Facility: [facility] Address: [address] [place] [address] Performed By: #### I CA ####[facility]ATORYCLIA [id number] [address] STATES [facility] Calcium.ionized adjusted to pH 7.4 (Bld) [Moles/Vol] 1.00 mmol/L Low 1.08-1.30 [facility] Comment on above: Order Comment: Speci men Type: BLOOD SPECIMENOrdering Facility: [facility] Address: [address] [place] [address] Performed By: #### I CA ####[facility]ATORYCLIA [id number] [address] STATES OF [facility] CBC W Auto Differential pane l (Bld)on 10-28-2021 Basophils (Bld) [#/Vol] 10*3/uL Normal <0.11 [facility] Comment on above: Order Comment: Speci men Type: BLOOD SPECIMENOrdering Facility: [facility] Address: [address] [place] [address] Performed By: #### 5 7021-8 ####[facility]ATORYCLIA [id number] [address] STATES OF [facility] Basophils/100 WBC (Bld) 0.2 % Normal A [facility] Comment on above: Order Comment: Speci men Type: BLOOD SPECIMENOrdering Facility: [facility] Address: [address] [place] [address] Performed By: #### 5 7021-8 ####[facility]ORYCLIA [id number] [address] Differential cell count method Nom (Bld) Auto Normal [facility] Comment on above: Order Comment: Speci men Type: BLOOD SPECIMENOrdering Facility: [facility] Address: [address] [place] [address] Performed By: #### 5 7021-8 ####[facility]ATORYCLIA [id number] [address] [place] Eosinophils (Bld) [#/Vol] 0.03 10*3/uL Normal <0.46 [facility] Comment on above: Order Comment: Speci men Type: BLOOD SPECIMENOrdering Facility: [facility] Address: [address] [place] [address] Performed By: #### 5 7021-8 ####[facility]ORYCLIA [id number] [address] [place] Eosinophils/100 WBC (Bld) 0.2 % Normal [facility] Comment on above: Order Comment: Speci men Type: BLOOD SPECIMENOrdering Facility: [facility] Address: [address] [place] [address] Performed By: #### 5 7021-8 ####[facility]ATORYCLIA [id number] [address] [place] Erythrocyte distribution width (RBC) [Ratio] 18.4 % High 11.5-15.0 [facility] Comment on above: Order Comment: Speci men Type: BLOOD SPECIMENOrdering Facility: [facility] Address: [address] [place] [address] Performed By: #### 5 7021-8 ####[facility]ORYCLIA [id number] [address] [place] Hematocrit (Bld) [Volume fraction] 37.8 % Normal 36.0-46.0 [facility] Comment on above: Order Comment: Speci men Type: BLOOD SPECIMENOrdering Facility: [facility] Address: [address] [place] [address] Performed By: #### 5 7021-8 ####[facility]ORYCLIA [id number] [address] OF [facility] Hemoglobin (Bld) [Mass/Vol] 12.2 g/dL Normal 11.5-15.5 [facility] Comment on above: Order Comment: Speci men Type: BLOOD SPECIMENOrdering Facility: [facility] Address: [address] [place] [address] Performed By: #### 5 7021-8 ####[facility]ORYCLIA [id number] [address] [place] IMMATURE GRAN % 1.0 % Normal [facility] Comment on above: Order Comment: Speci men Type: BLOOD SPECIMENOrdering Facility: [facility] Address: [address] [place] [address] Performed By: #### 5 7021-8 ####[facility]ORYCLIA [id number] [address] IMMATURE GRAN ABS 0.12 k/uL High <0.10 [facility] Comment on above: Order Comment: Speci men Type: BLOOD SPECIMENOrdering Facility: [facility] Address: [address] [place] [address] Performed By: #### 5 7021-8 ####[facility]ORYCLIA [id number] [address] [place] Lymphocytes (Bld) [#/Vol] 1.86 10*3/uL Normal 1.00-4.0 0 [facility] Comment on above: Order Comment: Speci men Type: BLOOD SPECIMENOrdering Facility: [facility] Address: [address] [place] [address] Performed By: #### 5 7021-8 ####[facility]ORYCLIA [id number] [address] Lymphocytes/100 WBC (Bld) 14.8 % Normal [facility] Comment on above: Order Comment: Speci men Type: BLOOD SPECIMENOrdering Facility: [facility] Address: [address] [place] [address] Performed By: #### 5 7021-8 ####[facility]ORYCLIA [id number] [address] MCH (RBC) [Entitic mass] 32.3 pg Normal 26.0-34.0 [facility] Comment on above: Order Comment: Speci men Type: BLOOD SPECIMENOrdering Facility: [facility] Address: [address] [place] [address] Performed By: #### 5 7021-8 ####[facility]ORYCLIA [id number] [address] MCHC (RBC) [Mass/Vol] 32.3 g/dL Normal 30.5-36.0 [facility] Comment on above: Order Comment: Speci men Type: BLOOD SPECIMENOrdering Facility: [facility] Address: [address] [place] [address] Performed By: #### 5 7021-8 ####[facility]ATORYCLIA [id number] [address] MCV (RBC) [Entitic vol] 100.0 fL Normal 80.0-100.0 A [facility] Comment on above: Order Comment: Speci men Type: BLOOD SPECIMENOrdering Facility: [facility] Address: [address] [place] [address] Performed By: #### 5 7021-8 ####[facility]ORYCLIA [id number] [address] Monocytes (Bld) [#/Vol] 0.54 10*3/uL Normal <0.87 [facility] Comment on above: Order Comment: Speci men Type: BLOOD SPECIMENOrdering Facility: [facility] Address: [address] [place] [address] Performed By: #### 5 7021-8 ####[facility]ORYCLIA [id number] [address] Monocytes/100 WBC (Bld) 4.3 % Normal A [facility] Comment on above: Order Comment: Speci men Type: BLOOD SPECIMENOrdering Facility: [facility] Address: [address] [address] Performed By: #### 5 7021-8 ####[facility]ORYCLIA [id number] [address] [place] Neutrophils (Bld) [#/Vol] 10.04 10*3/uL High 1.45-7. 50 [facility] Comment on above: Order Comment: Speci men Type: BLOOD SPECIMENOrdering Facility: [facility] Address: [address] [place] [address] Performed By: #### 5 7021-8 ####[facility]ORYCLIA [id number] [address] Neutrophils/100 WBC (Bld) 79.5 % Normal [facility] Comment on above: Order Comment: Speci men Type: BLOOD SPECIMENOrdering Facility: [facility] Address: [address] [place] [address] Performed By: #### 5 7021-8 ####[facility]ATORYCLIA [id number] [address] STATES [facility] Nucleated RBC (Bld) [#/Vol] 10*3/uL Normal <0.01 [facility] Comment on above: Order Comment: Speci men Type: BLOOD SPECIMENOrdering Facility: [facility] Address: [address] [address] Performed By: #### 5 7021-8 ####[facility]ORYCLIA [id number] [address] Nucleated RBC/100 WBC (Bld) [Ratio] 0.0 /100 WBC Normal [facility] Comment on above: Order Comment: Speci men Type: BLOOD SPECIMENOrdering Facility: [facility] Address: [address] [place] [address] Performed By: #### 5 7021-8 ####[facility]ORYCLIA [id number] [address] Platelet mean volume (Bld) [Entitic vol] 9.2 fL Normal 9.0-12.7 [facility] Comment on above: Order Comment: Speci men Type: BLOOD SPECIMENOrdering Facility: [facility] Address: [address] [place] [address] Performed By: #### 5 7021-8 ####[facility]ORYCLIA [id number] [address] [place] Platelets (Bld) [#/Vol] 254 10*3/uL Normal 150-400 [facility] Comment on above: Order Comment: Speci men Type: BLOOD SPECIMENOrdering Facility: [facility] Address: [address] [place] [address] Performed By: #### 5 7021-8 ####[facility]ORYCLIA [id number] [address] RBC (Bld) [#/Vol] 3.78 10*6/uL Low 3.90-5.20 [facility] Comment on above: Order Comment: Speci men Type: BLOOD SPECIMENOrdering Facility: [facility] Address: [address] [place] [address] Performed By: #### 5 7021-8 ####[facility]ORYCLIA [id number] [address] OF [facility] WBC (Bld) [#/Vol] 12.61 10*3/uL High 3.70-11.00 [facility] Comment on above: Order Comment: Speci men Type: BLOOD SPECIMENOrdering Facility: [facility] Address: [address] [place] [address] Performed By: #### 5 7021-8 ####[facility]ORYCLIA [id number] [address] CBC panel Auto (Bld)on 10-28 Erythrocyte distribution width (RBC) [Ratio] 18.6 % High 11.5-15.0 [facility] Comment on above: Order Comment: Speci men Type: BLOOD SPECIMENOrdering Facility: [facility] Address: [address] [place] [address] Performed By: #### 5 8410-2 ####[facility]ORYCLIA [id number] [address] Hematocrit (Bld) [Volume fraction] 32.8 % Low 36.0-46.0 [facility] Comment on above: Order Comment: Speci men Type: BLOOD SPECIMENOrdering Facility: [facility] Address: [address] [place] [address] Performed By: #### 5 8410-2 ####[facility]ORYCLIA [id number] [address] Hemoglobin (Bld) [Mass/Vol] 10.6 g/dL Low 11.5-15.5 [facility] Comment on above: Order Comment: Speci men Type: BLOOD SPECIMENOrdering Facility: [facility] Address: [address] [place] [address] Performed By: #### 5 8410-2 ####[facility]ORYCLIA [id number] [address] MCH (RBC) [Entitic mass] 31.5 pg Normal 26.0-34.0 [facility] Comment on above: Order Comment: Speci men Type: BLOOD SPECIMENOrdering Facility: [facility] Address: [address] [place] [address] Performed By: #### 5 8410-2 ####[facility]ORYCLIA [id number] [address] [place] MCHC (RBC) [Mass/Vol] 32.3 g/dL Normal 30.5-36.0 [facility] Comment on above: Order Comment: Speci men Type: BLOOD SPECIMENOrdering Facility: [facility] Address: [address] [place] [address] Performed By: #### 5 8410-2 ####[facility]ORYCLIA [id number] [place] [address] MCV (RBC) [Entitic vol] 97.3 fL Normal 80.0-100.0 A [facility] Comment on above: Order Comment: Speci men Type: BLOOD SPECIMENOrdering Facility: [facility] Address: [address] [place] [address] Performed By: #### 5 8410-2 ####[facility]ORYCLIA [id number] [address] OF [facility] Nucleated RBC (Bld) [#/Vol] 10*3/uL Normal <0.01 [facility] Comment on above: Order Comment: Speci men Type: BLOOD SPECIMENOrdering Facility: [facility] Address: [address] [place] [address] Performed By: #### 5 8410-2 ####[facility]ORYCLIA [id number] [address] OF [facility] Platelet mean volume (Bld) [Entitic vol] 9.0 fL Normal 9.0-12.7 [facility] Comment on above: Order Comment: Speci men Type: BLOOD SPECIMENOrdering Facility: [facility] Address: [address] [place] [address] Performed By: #### 5 8410-2 ####[facility]ORYCLIA [id number] [address] Platelets (Bld) [#/Vol] 315 10*3/uL Normal 150-400 [facility] Comment on above: Order Comment: Speci men Type: BLOOD SPECIMENOrdering Facility: [facility] Address: [address] [place] [address] Performed By: #### 5 8410-2 ####[facility]ORYCLIA [id number] [address] [place] RBC (Bld) [#/Vol] 3.37 10*6/uL Low 3.90-5.20 [facility] Comment on above: Order Comment: Speci men Type: BLOOD SPECIMENOrdering Facility: [facility] Address: [address] [place] [address] Performed By: #### 5 8410-2 ####[facility]ATORYCLIA [id number] [address] [place] WBC (Bld) [#/Vol] 13.78 10*3/uL High 3.70-11.00 [facility] Comment on above: Order Comment: Speci men Type: BLOOD SPECIMENOrdering Facility: [facility] Address: [address] [place] [address] Performed By: #### 5 8410-2 ####[facility]ORYCLIA [id number] [address] STATES [facility] Erythrocyte distribution width (RBC) [Ratio] 18.6 % High 11.5-15.0 [facility] Comment on above: Order Comment: Speci men Type: BLOOD SPECIMENOrdering Facility: [facility] Address: [address] [place] [address] Performed By: #### 5 8410-2 ####[facility]ORYCLIA [id number] [address] Hematocrit (Bld) [Volume fraction] 33.2 % Low 36.0-46.0 [facility] Comment on above: Order Comment: Speci men Type: BLOOD SPECIMENOrdering Facility: [facility] Address: [address] [place] [address] Performed By: #### 5 8410-2 ####[facility]ORYCLIA [id number] [address] [place] Hemoglobin (Bld) [Mass/Vol] 10.9 g/dL Low 11.5-15.5 [facility] Comment on above: Order Comment: Speci men Type: BLOOD SPECIMENOrdering Facility: [facility] Address: [address] [place] [address] Performed By: #### 5 8410-2 ####[facility]ATORYCLIA [id number] [address] [place] MCH (RBC) [Entitic mass] 32.2 pg Normal 26.0-34.0 [facility] Comment on above: Order Comment: Speci men Type: BLOOD SPECIMENOrdering Facility: [facility] Address: [address] [place] [address] Performed By: #### 5 8410-2 ####[facility]ATORYCLIA [id number] [place] [address] [place] MCHC (RBC) [Mass/Vol] 32.8 g/dL Normal 30.5-36.0 [facility] Comment on above: Order Comment: Speci men Type: BLOOD SPECIMENOrdering Facility: [facility] Address: [address] [place] [address] Performed By: #### 5 8410-2 ####[facility]ORYCLIA [id number] [address] [place] MCV (RBC) [Entitic vol] 97.9 fL Normal 80.0-100.0 [facility] Comment on above: Order Comment: Speci men Type: BLOOD SPECIMENOrdering Facility: [facility] Address: [address] [place] [address] Performed By: #### 5 8410-2 ####[facility]ATORYCLIA [id number] [address] STATES OF [facility] Nucleated RBC (Bld) [#/Vol] 10*3/uL Normal <0.01 [facility] Comment on above: Order Comment: Speci men Type: BLOOD SPECIMENOrdering Facility: [facility] Address: [address] [place] [address] Performed By: #### 5 8410-2 ####[facility]ORATORYCLIA [id number] Platelet mean volume (Bld) [Entitic vol] 9.0 fL Normal 9.0-12.7 [facility] Comment on above: Order Comment: Speci men Type: BLOOD SPECIMENOrdering Facility: [facility] Address: [address] [place] [address] Performed By: #### 5 8410-2 ####[facility]ORATORYCLIA [id number] Platelets (Bld) [#/Vol] 308 10*3/uL Normal 150-400 [facility] Comment on above: Order Comment: Speci men Type: BLOOD SPECIMENOrdering Facility: [facility] Address: [address] [place] [address] Performed By: #### 5 8410-2 ####[facility]ORATORYCLIA [id number] OF [facility] RBC (Bld) [#/Vol] 3.39 10*6/uL Low 3.90-5.20 [facility] Comment on above: Order Comment: Speci men Type: BLOOD SPECIMENOrdering Facility: [facility] Address: [address] [place] [address] Performed By: #### 5 8410-2 ####[facility] LABORATORYCLIA [id number] [address] OF [facility] WBC (Bld) [#/Vol] 17.70 10*3/uL High 3.70-11.00 [facility] Comment on above: Order Comment: Speci men Type: BLOOD SPECIMENOrdering Facility: [facility] Address: [address] [place] [address] Performed By: #### 5 8410-2 ####[facility] LABORATORYCLIA [id number] [address] CONFIRM BLOOD TYPEon 022 ABO A Normal [facility] Comment on above: Order Comment: Speci men Type: BLOOD SPECIMENOrdering Facility: [facility] Address: [address] [place] [address] Performed By: #### C ONABO ####[facility] BLOOD BANKCLIA [id number] [address] Rh Nom (Bld) Positive Normal [facility] Comment on above: Order Comment: Speci men Type: BLOOD SPECIMENOrdering Facility: [facility] Address: [address] [place] [address] Performed By: #### C ONO ####[facility] BLOOD BANKCLIA [id number] [place] [address] [place] CONSULTon 10-28-2021 CONSULT Normal [facility] CONSULT Normal [facility] CONSULT PROGon 10-28-2021 CONSULT PROG Normal [facility] CT ABD/PEL W IVCONon 022 CT ABD/PEL W IVCON Invalid Interpretation Code [facility] CT BRAIN WO IVCONon 10-29-[address] BRAIN WO IVCON Normal [facility] CT BRAIN WO IVCON Normal [facility] CT CERVICAL SPINE WO IVCONon 10-28-2021 CT CERVICAL SPINE WO IVCON Normal [facility] CT CHEST W IVCONon CT CHEST W IVCON Invalid Interpretation Code [facility] CT LUMBAR SPINE W RECON DATA -NBon 10-28-2021 CT LUMBAR SPINE W RECON DATA -NB Invalid Interpretation Code [facility] CT T-SPINE W RECON DATA -NBo n 10-28-2021 CT T-SPINE W RECON DATA -NB Invalid Interpretation Code [facility] CTA HEAD WO/W IVCONon 2021 CTA HEAD WO/W IVCON Normal [facility] Comprehensive metabolic 2000 panelon 10-28-2021 Albumin [Mass/Vol] 4.0 g/dL Normal 3.9-4.9 [facility] Comment on above: Order Comment: Speci men Type: BLOOD SPECIMENOrdering Facility: [facility] Address: [address] [place] [address] Performed By: #### 2 777-1, 46523-3, 03871-3 ####[facility] LABORATORYCLIA [id number] [address] [place] ALP [Catalytic activity/Vol] 68 U/L Normal 34-123 [facility] Comment on above: Order Comment: Speci men Type: BLOOD SPECIMENOrdering Facility: [facility] Address: [address] [place] [address] Performed By: #### 2 777-1, 18479-0, ####[facility] LABORATORYCLIA [id number] [address] STATES OF [facility] ALT With P-5'-P [Catalytic activity/Vol] 11 U/L Normal 7-38 [facility] Comment on above: Order Comment: Speci men Type: BLOOD SPECIMENOrdering Facility: [facility] Address: [address] [place] [address] Performed By: #### 2 777-1, 51857-5, ####[facility] LABORATORYCLIA [id number] [address] Anion gap [Moles/Vol] 17 mmol/L Normal 9-18 [facility] Comment on above: Order Comment: Speci men Type: BLOOD SPECIMENOrdering Facility: [facility] Address: [address] [place] [address] Performed By: #### 2 777-1, , ####[facility] LABORATORYCLIA [id number] [address] AST With P-5'-P [Catalytic activity/Vol] 15 U/L Normal 13-35 [facility] Comment on above: Order Comment: Speci men Type: BLOOD SPECIMENOrdering Facility: [facility] Address: [address] [place] [address] Performed By: #### 2 777-1, , ####[facility] LABORATORYCLIA [id number] [address] STATES OF [facility] Bilirubin [Mass/Vol] 0.2 mg/dL Normal 0.2-1.3 [facility] Comment on above: Order Comment: Speci men Type: BLOOD SPECIMENOrdering Facility: [facility] Address: [address] [place] [address] Performed By: #### 2 777-1, 42273-4, ####[facility] LABORATORYCLIA [id number] [place] [address] [place] Calcium [Mass/Vol] 7.7 mg/dL Low 8.5-10.2 [facility] Comment on above: Order Comment: Speci men Type: BLOOD SPECIMENOrdering Facility: [facility] Address: [address] [place] [address] Performed By: #### 2 777-1, , ####[facility] LABORATORYCLIA [id number] [place] [address] [place] Chloride [Moles/Vol] 106 mmol/L High 97-105 [facility] Comment on above: Order Comment: Speci men Type: BLOOD SPECIMENOrdering Facility: [facility] Address: [address] [place] [address] Performed By: #### 2 777-1, , ####[facility] LABORATORYCLIA [id number] [place] [address] [place] CO2 [Moles/Vol] 20 mmol/L Low 22-30 [facility] Comment on above: Order Comment: Speci men Type: BLOOD SPECIMENOrdering Facility: [facility] Address: [address] [place] [address] Performed By: #### 2 777-1, , ####[facility] LABORATORYCLIA [id number] [place] [address] [place] Creatinine [Mass/Vol] 0.35 mg/dL Low 0.58-0.96 [facility] Comment on above: Order Comment: Speci men Type: BLOOD SPECIMENOrdering Facility: [facility] Address: [address] [place] [address] Performed By: #### 2 777-1, , ####[facility] LABORATORYCLIA [id number] [place] [address] [place] ESTIMATED GLOMERULAR FILTRATION RATE 113 mL/min/1.73m??? Normal >=60 [facility] Comment on above: Order Comment: Lauren santana Type: BLOOD SPECIMENOrdering Facility: [facility] Address: [address] [place], [place] [address] Result Comment: Ameena mated Glomerular Filtration Rate (eGFR) is calculated using the 2020 CKD-EPI creatinine equation. This equation utilizes serum creatinine, sex, and age as parameters. The creatinine assay has traceable calibration to isotope dilution-mass spectrometry. Refer to KDIGO guidelines for clinical interpretation. In patients with unstable renal function, e.g. those with acute kidney injury, the eGFR may not accurately reflect actual GFR. Performed By: #### 2 777-1, 73222-9, 28971-5 ####[facility]ITALCLIA [id number] [place] [address] [place] Glucose [Mass/Vol] 150 mg/dL High 74-99 [facility] Comment on above: Order Comment: Lauren santana Type: BLOOD SPECIMENOrdering Facility: [facility] Address: [address] [place] [address] Result Comment: The [place] [employer] (ADA) provides guidance for cutoff values for fasting glucose and random glucose. The ADA defines fasting as no caloric intake for at least 8 hours. Fasting plasma glucose results between 100 to 125 mg/dL indicate increased risk for diabetes (prediabetes).Fasting plasma glucose results greater than or equal to 126 mg/dL meet the criteria for diagnosis of diabetes. In the absence of unequivocal hyperglycemia, results should be confirmed by repeat testing. In a patient with classic symptoms of hyperglycemia or hyperglycemic crisis, random plasma glucose results greater than or equal to 200 mg/dL meet the criteria for diagnosis of diabetes.Reference: Standards of Medical Care in Diabetes 2016, [place] [employer]. Diabetes Care. 2016.39(Suppl 1). Performed By: #### 2 777-1, 73533-0, 59571-5 ####[facility] LABORATORYCLIA [id number] [place] [id number] [place] Potassium [Moles/Vol] 3.5 mmol/L Low 3.7-5.1 [facility] Comment on above: Order Comment: [facility] Type: BLOOD SPECIMENOrdering Facility: [facility] Address: [address] [place] [address] Performed By: #### 2 777-1, , ####[facility] LABORATORYCLIA [id number] [place] [address] [place] Protein [Mass/Vol] 5.9 g/dL Low 6.3-8.0 [facility] Comment on above: Order Comment: Speci men Type: BLOOD SPECIMENOrdering Facility: [facility] Address: [address] [place] [address] Performed By: #### 2 777-1, , ####[facility] LABORATORYCLIA [id number] [place] [address] [place] Sodium [Moles/Vol] 143 mmol/L Normal 136-144 [facility] Comment on above: Order Comment: Speci men Type: BLOOD SPECIMENOrdering Facility: [facility] Address: [address] [place] [address] Performed By: #### 2 777-1, , ####[facility] LABORATORYCLIA [id number] [place] [address] [place] Urea nitrogen [Mass/Vol] 9 mg/dL Normal 7-21 [facility] Comment on above: Order Comment: Speci men Type: BLOOD SPECIMENOrdering Facility: [facility] Address: [address] [place] [address] Performed By: #### 2 777-1, , ####[facility] LABORATORYCLIA [id number] [place] [address] [place] Albumin [Mass/Vol] 3.6 g/dL Low 3.9-4.9 [facility] Comment on above: Order Comment: Speci men Type: BLOOD SPECIMENOrdering Facility: [facility] Address: [address] [place] [address] Performed By: #### 2 4323-8, 3040-3 ####[facility] LABORATORYCLIA [id number] [place], [place] [address] [place] [address] [place] ALP [Catalytic activity/Vol] 70 U/L Normal 34-123 [facility] Comment on above: Order Comment: Speci men Type: BLOOD SPECIMENOrdering Facility: [facility] Address: [address] [place] [address] Performed By: #### 2 4323-8, 3040-3 ####[facility] LABORATORYCLIA [id number] [address] [place] ALT With P-5'-P [Catalytic activity/Vol] 12 U/L Normal 7-38 [facility] Comment on above: Order Comment: Speci men Type: BLOOD SPECIMENOrdering Facility: [facility] Address: [address] [place] [address] Performed By: #### 2 4323-8, 0-3 ####[facility] LABORATORYCLIA [id number] [address] OF [facility] Anion gap [Moles/Vol] 21 mmol/L High 9-18 [facility] Comment on above: Order Comment: Speci men Type: BLOOD SPECIMENOrdering Facility: [facility] Address: [address] [place] [address] Performed By: #### 2 4323-8, 3040-3 ####[facility] LABORATORYCLIA [id number] [address] OF [facility] AST With P-5'-P [Catalytic activity/Vol] 15 U/L Normal 13-35 [facility] Comment on above: Order Comment: Speci men Type: BLOOD SPECIMENOrdering Facility: [facility] Address: [address] [place] [address] Performed By: #### 2 4323-8, 3040-3 ####[facility] LABORATORYCLIA [id number] [place], [place] [address] [place] [address] [place] Bilirubin [Mass/Vol] 0.2 mg/dL Normal 0.2-1.3 [facility] Comment on above: Order Comment: Speci men Type: BLOOD SPECIMENOrdering Facility: [facility] Address: [address] [place] [address] Performed By: #### 2 4323-8, 3039-3 ####[facility]ORATORYCLIA [id number] [place] [address] [place] Calcium [Mass/Vol] 7.3 mg/dL Low 8.5-10.2 [facility] Comment on above: Order Comment: Speci men Type: BLOOD SPECIMENOrdering Facility: [facility] Address: [address] [place] [address] Performed By: #### 2 4328, 3039-3 ####[facility] LABORATORYCLIA [id number] [place] [address] [place] Chloride [Moles/Vol] 96 mmol/L Low 97-105 [facility] Comment on above: Order Comment: Speci men Type: BLOOD SPECIMENOrdering Facility: [facility] Address: [address] [place] [address] Performed By: #### 2 432-8, 3039-3 ####[facility] LABORATORYCLIA [id number] [place] [address] [place] CO2 [Moles/Vol] 16 mmol/L Low 22-30 [facility] Comment on above: Order Comment: Speci men Type: BLOOD SPECIMENOrdering Facility: [facility] Address: [address] [place] [address] Performed By: #### 2 4328, 3039-3 ####[facility] LABORATORYCLIA [id number] [place] [address] [place] Creatinine [Mass/Vol] 0.37 mg/dL Low 0.58-0.96 [facility] Comment on above: Order Comment: Speci men Type: BLOOD SPECIMENOrdering Facility: [facility] Address: [address] [place] [address] Performed By: #### 2 4323-8, 3039-3 ####[facility] LABORATORYCLIA [id number] [place] [address] [place] ESTIMATED GLOMERULAR FILTRATION RATE 111 mL/min/1.73m??? Normal >=60 [facility] Comment on above: Order Comment: Lauren santana Type: BLOOD SPECIMENOrdering Facility: [facility] Address: [address] [place] [address] Result Comment: Ameena mated Glomerular Filtration Rate (eGFR) is calculated using the 2020 CKD-EPI creatinine equation. This equation utilizes serum creatinine, sex, and age as parameters. The creatinine assay has traceable calibration to isotope dilution-mass spectrometry. Refer to KDIGO guidelines for clinical interpretation. In patients with unstable renal function, e.g. those with acute kidney injury, the eGFR may not accurately reflect actual GFR. Performed By: #### 2 4323-8, 3039-3 ####[facility]NAPOLISIA [id number] [place] [address] [place] Glucose [Mass/Vol] 154 mg/dL High 74-99 [facility] Comment on above: Order Comment: Lauren santana Type: BLOOD SPECIMENOrdering Facility: [facility] Address: [address] [place] [address] Result Comment: The [place] Diabetes Association (ADA) provides guidance for cutoff values for fasting glucose and random glucose. The ADA defines fasting as no caloric intake for at least 8 hours. Fasting plasma glucose results between 100 to 125 mg/dL indicate increased risk for diabetes (prediabetes).Fasting plasma glucose results greater than or equal to 126 mg/dL meet the criteria for diagnosis of diabetes. In the absence of unequivocal hyperglycemia, results should be confirmed by repeat testing. In a patient with classic symptoms of hyperglycemia or hyperglycemic crisis, random plasma glucose results greater than or equal to 200 mg/dL meet the criteria for diagnosis of diabetes.Reference: Standards of Medical Care in Diabetes 2016, [place] [employer] Association. Diabetes Care. 2016.39(Suppl 1). Performed By: #### 2 4323-8, 0-3 ####[facility] LABORATORYCLIA [id number] [place] [id number] [place] Potassium [Moles/Vol] 2.8 mmol/L Low 3.7-5.1 [facility] Comment on above: Order Comment: Speci men Type: BLOOD SPECIMENOrdering Facility: [facility] Address: [address] [place] [address] Performed By: #### 2 4323-8, 3040-3 ####[facility] LABORATORYCLIA [id number] [address] STATES OF [facility] Protein [Mass/Vol] 5.8 g/dL Low 6.3-8.0 [facility] Comment on above: Order Comment: Speci men Type: BLOOD SPECIMENOrdering Facility: [facility] Address: [address] [place] [address] Performed By: #### 2 4323-8, 0-3 ####[facility] LABORATORYCLIA [id number] [address] Sodium [Moles/Vol] 133 mmol/L Low 136-144 [facility] Comment on above: Order Comment: Speci men Type: BLOOD SPECIMENOrdering Facility: [facility] Address: [address] [place] [address] Performed By: #### 2 4323-8, 3040-3 ####[facility] LABORATORYCLIA [id number] [address] Urea nitrogen [Mass/Vol] 9 mg/dL Normal 7-21 [facility] Comment on above: Order Comment: Speci men Type: BLOOD SPECIMENOrdering Facility: [facility] Address: [address] [place] [address] Performed By: #### 2 4323-8, 3040-3 ####[facility] LABORATORYCLIA [id number] [address] ED NOTEon 10-28-2021 ED NOTE HNO ID: [id number] Author: Le Oliva RN Service: Nursing Author Type: Registered Nurse Type: ED Notes Filed: 10/28/2021 3:23 AM Note Text: Patient being taken to OR at this time Normal [facility] ED NOTE Normal [facility] ED NOTE HNO ID: [id number] Author: Le Oliva RN Service: Nursing Author Type: Registered Nurse Type: ED Notes Filed: 10/28/2021 1:33 AM Note Text: 01:32- 100mg Rocuronium given 01:33 - 100mg Fentanyl given Normal [facility] ED NOTE HNO ID: [id number] Author: Le Oliva RN Service: Nursing Author Type: Registered Nurse Type: ED Notes Filed: 10/28/2021 1:31 AM Note Text: Patient end tital 14, unable to protect airway. Patient will be intujbated Normal [facility] ED NOTE Normal [facility] ED NOTE HNO ID: [id number] Author: Le Oliva RN Service: Nursing Author Type: Registered Nurse Type: ED Notes Filed: 10/28/2021 4:43 AM Note Text: Dr. Landin contacted Dr. Greer (neurosurgery) [facility] ED NOTE HNO ID: [id number] Author: TR Cavazos Service: Emergency Medicine Author Type: [employer] Electrical Engineer Type: ED Notes Filed: 10/28/2021 12:53 AM Note Text: STAT line was called at 12:37am for a Trauma 3; Moni Normal [facility] ED NOTE HNO ID: [id number] Author: Venancio Mitchell RN Service: ? Author Type: Registered Nurse Type: ED Notes Filed: 10/28/2021 12:48 AM Note Text: Bed: 08-ED Expected date: Expected time: Means of arrival: Comments: ADRIANO [place]- [facility] Normal [facility] ED PROV NOTEon 10-28-2021 ED PROV NOTE Normal [facility] Ethanol SerPl-mCncon 022 Ethanol [Mass/Vol] 116 mg/dL High <11 [facility] Comment on above: Order Comment: Speci men Type: BLOOD SPECIMENOrdering Facility: [facility] Address: [address] [place] [address] Result Comment: Valu es > 80 mg/dL may indicate intoxication Performed By: #### 5 643-2 ####[facility] LABORATORYCLIA [id number] [address] OF [facility] HEMATOCRIT (HCT)on 2 Hematocrit (Bld) [Volume fraction] 32.4 % Low 36.0-46.0 [facility] Comment on above: Order Comment: Speci men Type: BLOOD SPECIMENOrdering Facility: [facility] Address: [address] [place] [address] Performed By: #### H CT, HGB ####[facility] LABORATORYCLIA [id number] [address] Hematocrit (Bld) [Volume fraction] 25.5 % Low 36.0-46.0 [facility] Comment on above: Order Comment: Speci men Type: BLOOD SPECIMENOrdering Facility: [facility] Address: [address] [place] [address] Performed By: #### H CT, HGB ####[facility] LABORATORYCLIA [id number] [address] HEMOGLOBIN (HGB)on 2 Hemoglobin (Bld) [Mass/Vol] 10.5 g/dL Low 11.5-15.5 [facility] Comment on above: Order Comment: Speci men Type: BLOOD SPECIMENOrdering Facility: [facility] Address: [address] [place] [address] Performed By: #### H CT, HGB ####[facility] LABORATORYCLIA [id number] [address] [place] Hemoglobin (Bld) [Mass/Vol] 8.1 g/dL Low 11.5-15.5 [facility] Comment on above: Order Comment: Speci men Type: BLOOD SPECIMENOrdering Facility: [facility] Address: [address] [place] [address] Performed By: #### H CT, HGB ####[facility] LABORATORYCLIA [id number] [address] [place] HISTORY PHYSICALon 2 HISTORY PHYSICAL Normal [facility] Lipase SerPl-cCncon 10-29-19 22 Lipase [Catalytic activity/Vol] 11 U/L Low 16-61 [facility] Comment on above: Order Comment: Lauren santana Type: BLOOD SPECIMENOrdering Facility: [facility] Address: [address] [place] [address] Performed By: #### 2 4323-8, 3040-3 ####[facility] LABORATORYCLIA [id number] [place] [id number] [facility] Magnesium SerPl-mCncon 10-28 Magnesium [Mass/Vol] 1.6 mg/dL Low 1.7-2.3 [facility] Comment on above: Order Comment: Lauren santana Type: BLOOD SPECIMENOrdering Facility: [facility] Address: [address] [place] [address] Performed By: #### 2 777-1, 91490-6, 01752-7 ####[facility] LABORATORYCLIA [id number] [address] OF [facility] OPERATIVE NOon 10-28-2021 OPERATIVE NO Normal [facility] OPERATIVE NO Normal [facility] PT panel Coag (PPP)on 2021 INR Coag (PPP) [Relative time] 1.0 {INR} Normal 0.9-1.3 [facility] Comment on above: Order Comment: Lauren santana Type: BLOOD SPECIMENOrdering Facility: [facility] Address: [address] [place] [address] Result Comment: Sariah min K Antagonist (VKA) Therapeutic Range: INR 2 to 3 (Target INR of 2.5)Note: For patients treated with VKA drugs, such as warfarin, the [place] [employer] 2012 Guideline recommends a therapeutic INR range of 2 to 3 (target INR of 2.5). This recommendation includes high-risk patients with antiphospholipid syndrome with previous arterial or venous thromboembolism, current-generation mechanical or bioprosthetic aortic heart valve replacement.Note: Patients with mechanical aortic valve replacement and additional risk factors for thromboembolic events (atrial fibrillation, previous thromboembolism, LV dysfunction, hypercoagulable conditions) or an older generation mechanical AVR (i.e., ball in-Cage) or any mechanical MVR should have a INR therapeutic range of 2.5 to 3.5 (target INR of 3).Rosales GH, et al. Chest 2012, 141:7S-47SNishimura RA, et al. [facility] 2017, 70: 252-289 Performed By: #### 3 4528-0, 60824-5 ####[facility] LABORATORYCLIA [id number] [place] [address] [place] PT Coag (PPP) [Time] 11.4 s Normal 9.7-13.0 [facility] Comment on above: Order Comment: Speci men Type: BLOOD SPECIMENOrdering Facility: [facility] Address: [address] [place] [address] Performed By: #### 3 4528-0, 37386-5 ####[facility] LABORATORYCLIA [id number] [address] [place] Phosphate SerPl-mCncon 10-28 Phosphate [Mass/Vol] 4.1 mg/dL Normal 2.7-4.8 [facility] Comment on above: Order Comment: Speci men Type: BLOOD SPECIMENOrdering Facility: [facility] Address: [address] [place] [address] Performed By: #### 2 777-1, 11913-4, 51551-4 ####[facility] LABORATORYCLIA [id number] [place] [address] [place] SARS-CoV-2 RNA Resp Ql NADEEM+p robeon 10-28-2021 SARS-CoV-2 (COVID-19) RNA NADEEM+probe Ql (Resp) COVID 19 RESULT: SARS-CoV-2 (Agent of COVID-19) Not Detected by RT-PCR or equivalent method. This test has been authorized by FDA under an Emergency Use Authorization (EUA). Normal [facility] Comment on above: Performed By: #### 9 4500-6 ####[facility]ORATORYCLIA [id number] [place] [id number] [place] STAPH AUREUS PCRon 2 S. aureus and MRSA panel NADEEM+probe (Nose) Normal Negative [facility] Comment on above: Order Comment: Speci men Type: SWAB OF INTERNAL NOSEOrdering Facility: [facility] Address: [address] [place] [address] Result Comment: Nega tive for Staphylococcus aureus by PCR.Negative for MRSA by PCR Performed By: #### S APCR ####[facility] LABORATORYCLIA [id number] [address] SURGICAL PATHOLOGYon 022 CASE REPORT Normal [facility] Comment on above: Order Comment: Speci men Type: BLOOD CLOT SAMPLEOrdering Facility: [facility] Address: [address] [place] [address] Result Comment: Surg ical Pathology Report Case: [id number] Provider: Bryce Greer MD Collected: 10/28/2021 04:26 AMOrdering Location: [facility] Received: 10/28/2021 04:27 PM DepartmentPathologist: JANAE Clarkpecimen: CLOT (DO NOT USE FOR BONE MARROW) Performed By: #### S ####[facility] LABORATORYCLIA [id number] [address] FINAL DIAGNOSIS Normal [facility] Comment on above: Order Comment: Speci men Type: BLOOD CLOT SAMPLEOrdering Facility: [facility] Address: [address] [place] [address] Result Comment: Clot , evacuation:- Blood elements and fibrin, consistent with clot (hematoma). Performed By: #### S ####[facility]ORATORYCLIA [id number] [address] OF [facility] FINAL PERFORMING LAB Normal [facility] Comment on above: Order Comment: Speci men Type: BLOOD CLOT SAMPLEOrdering Facility: [facility] Address: [address] [place] [address] Result Comment: Diag nostic interpretation performed at [facility], [address] [place] [address] CLIA# [id number] Director: Dave Ramirez M.D. Performed By: #### S ####[facility]ORATORYIA [id number] [address] GROSS DESCRIPTION Normal [facility] Comment on above: Order Comment: Speci men Type: BLOOD CLOT SAMPLEOrdering Facility: [facility] Address: [address] [place] [address] Result Comment: A. C LOT (DO NOT USE FOR BONE MARROW).Received in formalin labeled as clot multiple red, hemorrhagic soft fragments of clotted blood aggregating 9 x 7 x 2.3 cm. Vascular tissue is not present. Steel Layout Worker sections are submitted in 1 cassette.Gross examination performed at [facility], [address] [place], [place] [address]RSA October 29, 2021 2:09 PM Performed By: #### S ####[facility] LABORATORYIA [id number] [address] TEG PANEL INTERPon 2 INTERPRETATION(THROMBOGRA PH) Normal [facility] Comment on above: Order Comment: Lauren santana Type: BLOOD SPECIMENOrdering Facility: [facility] Address: [address] [place] [address] Result Comment: Perf orming Pathologist: Chelsea HolguinInterpretation: Abnormal - see comment below. A thromboelastograph (TEG) study was performed using citrate-anticoagulated whole blood. The R value, a measure of coagulation function, is within the normal range. This indicates normal coagulation function. The Angle, a measure of fibrinogenfunction, is increased. This is indicative of increased fibrinogen concentration or function. The Maximal Amplitude (MA), a measure of platelet function, is within the normal range. The Ly30, a measure of fibrinolysis function, is normal. This isindicative of normal fibrinolytic function. The Coagulation Index (CI), a measure of hemostasis function, is within the normal range. The CI is a calculated parameter based on the other TEG results. Performed By: #### T EGPNP ####[facility]ORATORYCLIA [id number] [address]#### [id number] ####[facility] LABCLIA [id number] [address] THROMBOGRAPH PANELon 13-2 022 Clot angle TEG (Bld) [Angle] 75.4 degrees High 47.0-74.0 [facility] Comment on above: Order Comment: Speci men Type: BLOOD SPECIMENOrdering Facility: [facility] Address: [address] [place] [address] Performed By: #### T EGPNP ####[facility]ORATORYCLIA [id number] [address]#### [id number] ####[facility] LABCLIA [id number] [address] Clot Lysis 30 Min post maximum clot amplitude TEG (Bld) [Length fraction] 0.0 % Normal 0.0-8.0 [facility] Comment on above: Order Comment: Speci men Type: BLOOD SPECIMENOrdering Facility: [facility] Address: [address] [place] [address] Performed By: #### T EGPNP ####[facility]ORATORYCLIA [id number] [address]#### [id number] ####[facility] LABCLIA [id number] [address] [place] Clotting time TEG (Bld) 5.2 minutes Normal 4.0-10.0 [facility] Comment on above: Order Comment: Speci men Type: BLOOD SPECIMENOrdering Facility: [facility] Address: [address] [place] [address] Performed By: #### T EGPNP ####[facility]ORATORYCLIA [id number] [address] [place]#### [id number] ####[facility] LABCLIA [id number] [address] [place] Coagulation index TEG Qn (Bld) 3.2 Normal -4.6-3.2 [facility] Comment on above: Order Comment: Speci men Type: BLOOD SPECIMENOrdering Facility: [facility] Address: [address] [place] [address] Result Comment: The Coagulation Index, a secondary parameter, is labeled by the community health nursing director as for research use only and is used per the community health nursing director's instructions. Its performance characteristics were determined by [facility] in a manner consistent with CLIA requirements. This test has not been cleared by the U.S. Food and Drug Administration. Performed By: #### T EGPNP ####[facility] INDIANAPOLISIA [id number] [address]#### [id number] ####[facility] LABIA [id number] [address] STATES [facility] Maximum clot firmness TEG (Bld) [Length] 74.4 mm Normal 51.0-75.0 [facility] Comment on above: Order Comment: Speci men Type: BLOOD SPECIMENOrdering Facility: [facility] Address: [address] [place] [address] Performed By: #### T EGPNP ####[facility]ORATORYCLIA [id number] [place] [address] [place] [facility]#### [id number] ####[facility] LABIA [id number] [address] [place] TOX SCREEN ROUT URon 022 Amphetamines Confirm (U) [Mass/Vol] Positive Abnormal Negative [facility] Comment on above: Order Comment: Speci men Type: URINE SPECIMENOrdering Facility: [facility] Address: [address] [place] [address] Result Comment: Cuto ff threshold at 1000 ng/mL. Performed By: #### U TOX2 ####[facility]ATORYCLIA [id number] [address] [place] BARBITURATES, URINE Negative Normal Negative [facility] Comment on above: Order Comment: Speci men Type: URINE SPECIMENOrdering Facility: [facility] Address: [address] [place] [address] Result Comment: Cuto ff threshold at 200 ng/mL. Performed By: #### U TOX2 ####[facility]ATORYCLIA [id number] [place] [address] [place] BENZODIAZEPINES, UR Negative Normal Negative [facility] Comment on above: Order Comment: Speci men Type: URINE SPECIMENOrdering Facility: [facility] Address: [address] [place] [address] Result Comment: Cuto ff threshold at 200 ng/mL. Performed By: #### U TOX2 ####[facility]ATORYCLIA [id number] [address] [place] CANNABINOIDS,URINE Negative Normal Negative [facility] Comment on above: Order Comment: Speci men Type: URINE SPECIMENOrdering Facility: [facility] Address: [address] [place] [address] Result Comment: Cuto ff threshold at 50 ng/mL. Performed By: #### U TOX2 ####[facility]ATORYCLIA [id number] [address] [place] Cocaine Ql (U) Negative Normal Negative [facility] Comment on above: Order Comment: Speci men Type: URINE SPECIMENOrdering Facility: [facility] Address: [address] [place] [address] Result Comment: Cuto ff threshold at 300 ng/mL. Performed By: #### U TOX2 ####[facility]ATORYCLIA [id number] [address] [place] Ethanol (U) [Mass/Vol] <11 Normal <11 [facility] Comment on above: Order Comment: Speci men Type: URINE SPECIMENOrdering Facility: [facility] Address: [address] [place] [address] Performed By: #### U TOX2 ####[facility]ORATORYCLIA [id number] [address] Opiates Screen Ql (U) Negative Normal Negative [facility] Comment on above: Order Comment: Speci men Type: URINE SPECIMENOrdering Facility: [facility] Address: [address] [place] [address] Result Comment: Cuto ff threshold at 300 ng/mL. Performed By: #### U TOX2 ####[facility]ATORYCLIA [id number] [address] oxyCODONE cutoff Screen (U) [Mass/Vol] Negative Normal Negative [facility] Comment on above: Order Comment: Speci men Type: URINE SPECIMENOrdering Facility: [facility] Address: [address] [place] [address] Result Comment: Cuto ff threshold at 100 ng/mL. Performed By: #### U TOX2 ####[facility]ORATORYCLIA [id number] [address] Phencyclidine Ql (U) Negative Normal Negativ e, Unable to assay due to interfering substance [facility] Comment on above: Order Comment: Speci men Type: URINE SPECIMENOrdering Facility: [facility] Address: [address] [place] [address] Result Comment: Cuto ff threshold at 25 ng/mL. Performed By: #### U TOX2 ####[facility]ATORYCLIA [id number] [address] TYPE AND SCREENon 10-28-2021 ABO A Normal [facility] Comment on above: Order Comment: Speci men Type: BLOOD SPECIMENOrdering Facility: [facility] Address: [address] [place] [address] Performed By: #### T SCR ####[facility]LO[facility] BANKCLIA [id number] [address] [place] HISTORICAL AB SCR STATUS Negative Normal [facility] Comment on above: Order Comment: Speci men Type: BLOOD SPECIMENOrdering Facility: [facility] Address: [address] [place] [address] Performed By: #### T SCR ####[facility] BANKCLIA [id number] [address] Rh Nom (Bld) Positive Normal [facility] Comment on above: Order Comment: Speci men Type: BLOOD SPECIMENOrdering Facility: [facility] Address: [address] [place] [address] Performed By: #### T SCR ####[facility] BANKCLIA [id number] [address] TYPE AND SCREEN EXPIRATION 10/31/2021 23:59 Normal [facility] Comment on above: Order Comment: Speci men Type: BLOOD SPECIMENOrdering Facility: [facility] Address: [address] [place] [address] Performed By: #### T SCR ####[facility]LO[facility] BANKCLIA [id number] [address] XR CHEST 1V FRONTALon 2021 XR CHEST 1V FRONTAL Normal [facility] XR CHEST 1V FRONTAL Normal [facility] aPTT PPPon 10-28-2021 aPTT Coag (PPP) [Time] 25.6 s Normal 23.0-32.4 [facility] Comment on above: Order Comment: Speci men Type: BLOOD SPECIMENOrdering Facility: [facility] Address: [address] [place] [address] Performed By: #### 3 [id number], [id number] ####[facility]ORATORYCLIA [id number] [address] Absolute lymphocyte counton 10-27-2021 Lymphocytes Auto (Unsp spec) [#/Vol] 1.52 10*3/uL 0.83-4.51 [facility] Work Phone: Basophil percentageon 2021 Basophils/100 WBC (Bld) 0.3 % 0-1 [facility] Work Phone: Chloride [Moles/Vol] 107 mmol/L 98-107 [facility] Work Phone: Eosinophils/100 WBC (Bld) 1.0 % 0-5 [facility] Work Phone: Glucose [Mass/Vol] 126 mg/dL 74-106 [facility] Work Phone: Comment on above: Fasting Glucose resu lt greater than or equal to 126 mg/dL suggests DIABETES MELLITUS per A.D.A. criteria. Neutrophils (Bld) [#/Vol] 6.9 10*3/uL 2.0-7.7 [facility] Work Phone: Neutrophils/100 WBC (Bld) 74.4 % 47-70 [facility] Work Phone: Potassium [Moles/Vol] 3.5 mmol/L 3.5-5.1 [facility] Work Phone: Sodium [Moles/Vol] 139 mmol/L 136-145 [facility] Work Phone: [phone] WBC (Bld) [#/Vol] 9.2 10*3/uL 4.4-11.0 [facility] Work Phone: Blood erythrocytes count (nu mber/volume)on 10-27-2021 RBC (Bld) [#/Vol] 4.16 10*6/uL 4.2-5.4 [facility] Work Phone: Blood hemoglobin measurement (mass/volume)on 10-27-2021 Hemoglobin (Bld) [Mass/Vol] 13.4 g/dL 12.0-15.0 [facility] Work Phone: [phone] Blood lymphocytes/100 leukoc yteson 10-27-2021 Lymphocytes/100 WBC (Bld) 16.5 % 19-41 [facility] Work Phone: Blood manual differential co mment interpretation (narrative result)on 10-27-2021 Manual differential comment Kuldip (Bld) [Interp] SCANNED [facility] Work Phone: Blood monocytes/100 leukocyt eson 10-27-2021 Monocytes/100 WBC (Bld) 7.4 % 0-10 [facility] Work Phone: Blood platelet mean volumeon 10-27-2021 Platelet mean volume (Bld) [Entitic vol] 8.9 fL 6.2-12.0 [facility] Work Phone: Determination of erythrocyte mean corpuscular volume (MCV)on 10-27-2021 MCV (RBC) [Entitic vol] 98.3 fL 81-99 [facility] Work Phone: Hematocrit Auto (Bld) [Volum e fraction]on 10-27-2021 Hematocrit (Bld) [Volume fraction] 40.9 % 37-47 [facility] Work Phone: INR in Blood by Coagulation assayon 10-27-2021 INR Coag (Bld) [Relative time] 1.2 {INR} [facility] Work Phone: Laboratory - Chemistry and C hemistry - challengeon 10-27-2021 CO2 [Moles/Vol] 21.0 mmol/L 21.0-32.0 [facility] Work Phone: Urea nitrogen/Creatinine [Mass ratio] 18.7 mg/mg 10-20 [facility] Work Phone: Laboratory - Coagulationon 0 10-27-2021 aPTT Coag (Bld) [Time] 31.8 s 24.1-36.2 breanna [facility] Work Phone: PT Coag (PPP) [Time] 14.1 s 11.7-14.[address] [facility] Work Phone: Laboratory - Hematology and Cell countson 10-27-2021 Erythrocyte distribution width (RBC) [Entitic vol] 66.9 fL 35.1-43.9 oste r [facility] Work Phone: Erythrocyte distribution width (RBC) [Ratio] 18.5 % 11.6-14.6 [facility] Work Phone: Immature granulocytes/100 WBC (Bld) 0.400 % 0.0-0.9 [facility] Work Phone: Comment on above: IG% - Immature Granu locytes (promyelocytes, myelocytes and metamyelocytes) > 1% indicates that a LEFT SHIFT is Present. MCH (RBC) [Entitic mass] 32.2 pg 27.0-32.0 [facility] Work Phone: Nucleated RBC/100 WBC (Bld) [Ratio] 0 % 0-5 [facility] Work Phone: MCHC Auto (RBC) [Mass/Vol]on 10-27-2021 MCHC (RBC) [Mass/Vol] 32.8 g/dL 32-36 [facility] Work Phone: No Panel Informationon 10-27 Ethyl Alcohol Level 177.0 mg/dL [facility] Work Phone: Comment on above: The serum:whole bloo d ethanol ratio is approximately 1.14and varies slightly with hematocrit. Medical Alcohol reference interval and critical value innon-tolerant individuals; 50 - 100 Impairment 100 Intoxication 100 - 250 Severe Poisoning 250 - 400 Deep/possible fatal coma Estimated Creatinine Clearance Calc 45.78 ml/min [facility] Work Phone: Estimated GFR (MDRD) Amer 147 mL/min >60 [facility] Work Phone: Comment on above: GFR Calc Estimated GFR (MDRD) Non-Af Amer 121 mL/min >60 [facility] Work Phone: Comment on above: Non- GFR Calc Platelets bldon 10-27-2021 Platelets (Bld) [#/Vol] 273 10*3/uL 150-450 [facility] Work Phone: Serum or plasma calcium joaquin urement (mass/volume)on 10-27-2021 Calcium [Mass/Vol] 8.7 mg/dL 8.5-10.1 [facility] Work Phone: Serum or plasma creatinine m easurement (mass/volume)on 10-27-2021 Creatinine [Mass/Vol] 0.54 mg/dL 0.55-1.02 [facility] Work Phone: Comment on above: The validity of the calculated GFR & GFRAA in patients over 70 years has not been determined. Clinical correlation is essential. Serum or plasma urea nitroge n measurement (mass/volume)on 10-27-2021 Urea nitrogen [Mass/Vol] 10 mg/dL 7-18 [facility] Work Phone: Thin prep Papanicolaou smear with manual screeningon 10-27-2021 Thin prep Papanicolaou smear with manual screening 11 12-30 [facility] Work Phone: Laboratory - Hematology and Cell countson 09-11-2021 Anisocytosis Ql (Bld) 1+ [facility] Work Phone: Ovalocyte detectionon 2021 Ovalocytes LM Ql (Bld) RARE [facility] Blood platelet adequacy dete ction by light microscopyon 06-11-2021 Platelets LM Ql (Bld) ADEQUATE ADEQ [facility] [employer] mix RAST testo n 06-11-2021 Microcytosis 1+ [facility] Hypochromatic red blood cell detectionon 06-11-2021 Hypochromia Ql (Bld) 1+ [facility] Thin prep Papanicolaou smear with manual screeningon 06-11-2021 Thin prep Papanicolaou smear with manual screening 1+ [facility] Hemoglobin (Reticulocytes) [ Entitic mass]on 05-07-2021 Reticulocyte Hemoglobin Equivalent 21.9 pg Low 30-35 [facility] Hemoglobin in reticulocytes (mass per reticulocyte)on 05-07-2021 Hemoglobin (Reticulocytes) [Entitic mass] 21.9 pg Low 30-35 [facility] No Panel Informationon 05-07 Immature Reticulocyte Fraction 32.80 % High 3.00-15.90 [facility] Reticulocyte Count 1.57 % High 0.5-1.5 [facility] Glucose Meteron 10-21-2019 Glucose [Mass/Vol] 160 mg/dL High 70-99 [facility] Comment on above: Result Comment: TIARA DONALDSON Performed By: #### G LMET #### [place] [address] Cult Urineon 10-08-2019 Cult Urine Test performed at [facility] ORGANISM: Normal Urogenital Hyun (ID: 1) 5,000-<10,000 CFU/ml Normal [facility] Comment on above: Performed By: #### C _URI #### [place] [address] Glucose Meteron 07-05-2019 Glucose [Mass/Vol] 175 mg/dL High 70-99 [facility] Comment on above: Performed By: #### G LMET #### [place] [address] Cult Urineon 06-29-2019 Cult Urine Test performed at [facility] ORGANISM: *Klebsiella pneumoniae (ID: 1) >100,000 CFU/ml CLSI breakpoints for therapy of uncomplicated UTI due to E. coli, K. pneumoniae or P. mirabilis were applied and may be used to predict the activity of oral agents (cefdinir, cefpodoxime, cefuroxime, and cephalexin). Normal [facility] Comment on above: Performed By: #### C _URI #### [place] [address] Cytology, Medicalon 04-23-20 Cytology, Medical Test performed at [place] [address] NAME: KAELYN POWERS REQUESTING: CALVIN DOHERTY M.D. DIAGNOSIS VOIDED URINE - NEGATIVE FOR HIGH GRADE UROTHELIAL CARCINOMA. PREDOMINANTLY SQUAMOUS CONTAMINANTS. SPECIMEN: A) URN, URINE CYTOLOGY VOIDED Description: Materials Prepared & Examined: Volume: ......... 25 # of Monolayers: .......... 1 Color: ............ Yellow # of Slides: ................. Clear: ............. Y 1 CLINICAL INFORMATION: MASS OF URETHRA. Electronically Signed: 04/26/2019 Screened by: ROD ARREDONDO([facility]) Signed Out by: IRAIDA BECK M.D. Printed on: April 26, 2019 Page 1 of 1 Normal [facility] Comment on above: Performed By: #### C YTOM #### [facility] [address] [place] [id number] BUN Bloodon 04-07-2019 Urea nitrogen [Mass/Vol] 12 mg/dL Normal -18 [facility] Comment on above: Performed By: #### M BUN #### [place] [address] Creatinine Bloodon 9 Creatinine [Mass/Vol] 0.54 mg/dL Normal 0.51-0.95 [facility] Comment on above: Performed By: #### M CREA #### [place] [address] MDRD eGFRon 04-07-2019 GFR/1.73 sq M predicted among non-blacks MDRD (S/P/Bld) [Vol rate/Area] mL/min/{1.73_m2} Normal >60mL/min/1.7 3m2 [facility] Comment on above: Result Comment: If t he patient is , multiply the result by 1.210. Performed By: #### M GFR #### [place] [address] MRI FEMALE URETHRA WO/W IVCO Non 04-07-2019 MRI FEMALE URETHRA WO/W IVCON * * *Final Report* * * DATE OF EXAM: Apr 07 2019 2:36PM AWM 0716 - MRI FEMALE URETHRA WO/W IVCON / PROCEDURE REASON: multiple diagnoses * * * * Physician Interpretation * * * * EXAM TITLE: MRI OF THE URETHRA WITH IV CONTRAST DATE: 04/07/2019 COMPARISON: CT urogram 03/04/2019 CLINICAL INDICATION/HISTORY: Urinary incontinence TECHNIQUE: A series of T1 and T2-weighted sequences through the pelvis were performed prior to and after the administration of intravenous contrast. This study was tailored as a small mwhym-gs-ycgn study for evaluation of the female urethra. 18 mL of Dotarem IV contrast was administered. FINDINGS: There is a circumferential cystic fluid collection surrounding the urethra consistent with a urethral diverticulum. This measures up to 7 mm in thickness. The urethra is circumferentially thickened measuring up to 1.7 cm in diameter. A discrete urethral mass is not identified. Bladder is unremarkable. Uterus is surgically absent. No enlarged pelvic lymph nodes. Osseous structures are unremarkable. IMPRESSION: There is a circumferential fluid collection surrounding the urethra measuring up to 7 mm in thickness consistent with a urethral diverticulum. The urethra is diffusely thickened measuring up to 1.7 cm in diameter. Discrete ureteral mass is not identified. Findings may be due to chronic inflammation. Dynamometer Tuner: MIRA Transcribe Date/Time: Apr 14 2019 2:48P Dictated by : LETICIA GOMEZ MD This examination was interpreted and the report reviewed and electronically signed by: LETICIA GOMEZ MD on Apr 14 2019 3:18PM EST Normal [facility] Lab Report: Bilirubin, Direc ton 12-30-2016 Bilirubin.direct mass conc 0.13 mg/dL Invalid Interpretation Code 0.00-0.30 [employer] Work Phone: [phone] Lab Report: CBC W/Diff, Auto matedon 12-30-2016 Basophils/100 leukocytes 0.4 % Invalid Interpretation Code 0-1 [employer] Work Phone: [phone] Basophils/100 WBC (Bld) 0.4 % 0-1 W [employer] Work Phone: [phone] Eosinophils/100 leukocytes 1.7 % Invalid Interpretation Code 0-5 [employer] Work Phone: Eosinophils/100 WBC (Bld) 1.7 % 0-5 [employer] Work Phone: [phone] Erythrocyte distribution width Ratio (RBC) 13.5 % 11.6-14.6 [employer] Work Phone: [phone] Erythrocyte distribution width Ratio (RBC) 46.4 fL High 35.1-43.9 [employer] Work Phone: [phone] Erythrocytes (RBC) 4.76 10*6/uL Invalid Interpretation Code 4.2-5.4 [employer] Work [phone] Hematocrit (HCT) 45.9 % Invalid Interpretation Code 37-47 [facility] Work Phone: [phone] Hematocrit Volume Fraction (Bld) 45.9 % 37-47 [facility] Work [phone] Hemoglobin mass conc (Bld) 15.6 g/dL High 12.0-15.0 [facility] Work Phone: [phone] Immature granulocytes #/vol (Bld) 0.200 % 0.0-0.9 [facility] Work Phone: [phone] immature granulocytes, percentage of total cells, blood 0.200 % Invalid Interpretation Code 0.0-0.9 [facility] Work Phone: [phone] Lymphocytes 2.32 X10 3/UL Invalid Interpretation Code 0.83-4.51 [facility] Work Phone: [phone] Lymphocytes #/vol (Bld) 2.32 X10 3/UL 0.83-4.51 [facility] Work Phone: [phone] Lymphocytes/100 leukocytes 27.6 % Invalid Interpretation Code 19-41 [facility] Work Phone: [phone] Lymphocytes/100 WBC (Bld) 27.6 % 19-41 [facility] Work Phone: [phone] MCH 32.8 pg High 27.0-32.0 [facility] Work Phone: [phone] MCH Entitic mass (RBC) 32.8 pg High 27.0-32.0 [facility] Work Phone: [phone] MCHC 34.0 G/GL Invalid Interpretation Code 32-36 [facility] Work Phone: [phone] MCHC mass conc (RBC) 34.0 G/GL 32-[address] [facility] Work Phone: [phone] MCV 96.4 fL Invalid Interpretation Code 81-99 [facility] Work Phone: [phone] MCV Entitic volume (RBC) 96.4 fL 81-99 [facility] Work Phone: [phone] Monocytes/100 leukocytes 9.1 % Invalid Interpretation Code 0-10 [facility] Work Phone: [phone] Monocytes/100 WBC (Bld) 9.1 % 0-10 [employer] Work Phone: [phone] neutrophil count, blood 5.1 X10 3/UL Invalid Interpretation Code 2.0-7.7 [employer] Work Phone: [phone] Neutrophils #/vol (Bld) 5.1 X10 3/UL 2.0-7.7 [facility] Work Phone: [phone] Neutrophils/100 leukocytes 61.0 % Invalid Interpretation Code 47-70 [employer] Work Phone: [phone] Neutrophils/100 WBC (Bld) 61.0 % 47-70 [employer] Work Phone: [phone] Platelet mean volume Entitic volume (Bld) 9.7 fL 6.2-12.0 [employer] Work Phone: [phone] Platelets 246 10*3/mm3 Invalid Interpretation Code 150-450 [employer] Work Phone: [phone] Platelets #/vol (Bld) 246 10*3/mm3 150-450 [employer] Work Phone: [phone] PMV by Bonnie 9.7 fL Invalid Interpretation Code 6.2-12.0 [employer] Work Phone: [phone] RBC #/vol (Bld) 4.76 10*6/uL 4.2-5.4 [employer] Work Phone: [phone] RDW-CA 13.5 % Invalid Interpretation Code 11.6-14.6 [employer] Work Phone: [phone] red blood cell distribution width, size density 46.4 fL High 35.1-43.9 [employer] Work Phone: [phone] WBC #/vol (Bld) 8.4 10*3/uL 4.4-11.0 [employer] Work Phone: WBC (Leukocytes) 8.4 10*3/uL Invalid Interpretation Code 4.4-11.0 [employer] Work Phone: [phone] Lab Report: Comprehensive Me tabolic Profilon 12-30-2016 Albumin mass conc 3.5 g/dL Invalid Interpretation Code 3.4-5.0 [facility] Work Phone: [phone] Albumin/Globulin mass ratio 1.1 {ratio} Invalid Interpretation Code 0.9-2.4 [facility] Work Phone: [phone] Alkaline phosphatase (ALP) 63 U/L Invalid Interpretation Code 45-117 [facility] Work Phone: [phone] ALP enzyme act/vol (Bld) 63 U/L 45-117 [facility] Work Phone: [phone] ALT enzyme act/vol 31 U/L Invalid Interpretation Code 12-78 [facility] Work Phone: [phone] Anion gap 11 mmol/L Invalid Interpretation Code 5-15 [facility] Work Phone: [phone] Anion gap molar conc 11 mmol/L 5-[address] [facility] Work Phone: [phone] AST enzyme act/vol 24 U/L Invalid Interpretation Code 15-37 [facility] Work Phone: [phone] Bilirubin mass conc 0.40 mg/dL Invalid Interpretation Code 0.20-1.00 [facility] Work Phone: [phone] Calcium mass conc 8.4 mg/dL Low 8.5-10.1 [facility] Work Phone: [phone] Chloride molar conc 103 mmol/L Invalid Interpretation Code 98-107 [facility] Work Phone: [phone] CO2 25.0 mmol/L Invalid Interpretation Code 21.0-32.0 [facility] Work Phone: [phone] CO2 ppres (BldV) 25.0 mmol/L 21.0-32.0 [facility] Work Phone: [phone] Creatinine mass conc 0.66 mg/dL Invalid Interpretation Code 0.55-1.02 [facility] Work Phone: [phone] eGFR (non-black) 117 mL/min/{1.73_m2} Invalid Interpretation Code >60 [facility] Work Phone: [phone] EST GFR - AA 117 mL/min >60 [facility] Work Phone: [phone] GFR/1.73 sq M predicted among non-blacks MDRD vol rate/area (S/P/Bld) 96 mL/min/{1.73_m2} Invalid Interpretation Code >60 [employer] Work Phone: [phone] Globulin 3.3 g/dL Invalid Interpretation Code 2.3-3.5 [facility] Work Phone: [phone] Globulin mass conc (S) 3.3 g/dL 2.3-3.5 [employer] Work Phone: [phone] Glucose 159 mg/dL High 70-110 [employer] Work Phone: [phone] Glucose mass conc 159 mg/dL High 70-110 [employer] Work Phone: [phone] Potassium molar conc 4.2 mmol/L Invalid Interpretation Code 3.5-5.1 [employer] Work Phone: [phone] Protein mass conc 6.8 g/dL Invalid Interpretation Code 6.4-8.2 [employer] Work Phone: [phone] Sodium molar conc 139 mmol/L Invalid Interpretation Code 136-145 [employer] Work Phone: [phone] Urea nitrogen mass conc 14 mg/dL Invalid Interpretation Code 7-18 [employer] Work Phone: [phone] Urea nitrogen/Creatinine mass ratio 21.2 RATIO High 10-20 [employer] Work Phone: [phone] Lab Report: Lipid Profileon 12-30-2016 Cholesterol in HDL mass conc 35 mg/dL Low [employer] Work Phone: [phone] Cholesterol in LDL mass conc 84 mg/dL Invalid Interpretation Code 0-130 [employer] Work Phone: [phone] Cholesterol mass conc 177 mg/dL Invalid Interpretation Code 200 [employer] Work Phone: [phone] Lipoprotein.pre-beta mass conc 58 mg/dL High 5-40 [employer] Work Phone: [phone] Triglyceride mass conc 292 mg/dL High [facility] [employer] Work Phone: [phone] Lab Report: Urinalysis, Rout ine (Dipstick)on 12-30-2016 Albumin Ql (U) 100 High Negative [facility] Work Phone: [phone] Bilirubin Ql (U) Negative Negative [facility] Work Phone: [phone] Clarity Nom (U) Sl. Cloudy Invalid Interpretation Code Clear [facility] Work Phone: [phone] Color Nom (U) Yellow Invalid Interpretation Code Yellow [facility] Work Phone: [phone] Glucose Ql (U) Normal mg/dl Invalid Interpretation Code Normal [facility] Work Phone: [phone] Ketones mass conc (U) Negative Negative [facility] Work Phone: [phone] Leukocyte esterase Test strip Ql (U) 500 High Negative [facility] Work Phone: [phone] Nitrite Urine Negative Invalid Interpretation Code Negative [facility] Work Phone: [phone] Occult Blood, urine 150 High Negative [facility] Work Phone: [phone] OCCULT BLOOD-UR 150 High Negative [facility] Work Phone: [phone] pH (U) 6.0 [pH] 5.0 - 8.0 [facility] Work Phone: [phone] Specific gravity Refractometry Relative Density (U) 1.025 Invalid Interpretation Code 1.002-1.030 [facility] Work Phone: [phone] Urine, bilirubin presence Negative Invali d Interpretation Code Negative [facility] Work Phone: [phone] Urine, ketones presence Negative Invalid Interpretation Code Negative [facility] Work Phone: [phone] Urine, pH 6.0 [pH] Invalid Interpretation Code 5.0 - 8.0 [facility] Work Phone: [phone] Urine, protein 100 mg/dL High Negative [facility] Work Phone: [phone] urobilinogen, urine, by dipstick Normal mg/dl Invalid Interpretation Code Normal [facility] Work Phone: [phone] Lab Report: Vitamin D,25 Hyd roxyon 12-30-2016 vitamin D 25-hydroxy, serum 15.4 ng/mL Invalid Interpretation Code [facility] Work Phone: [phone] Vitamin D 25-OH 15.4 ng/mL [facility] Work Phone: [phone] Office Visiton 12-05-2016 Dietary management education, guidance, and counseling (procedure) yes Invalid Interpretation Code [facility] Work Phone: [phone] Documentation of current medications (procedure) Done Invalid Interpretation Code [facility] Work Phone: [phone] Protein mass conc Done [facility] Work Phone: [phone] Protein mass conc yes [facility] Work Phone: [phone] Smoking cessation education (procedure) yes Invalid Interpretation Code [facility] Work Phone: [phone] Tobacco smoking status NHIS Current every day smoker [facility] Work Phone: [phone] Tobacco use CPHS Current every day smoker Invalid Interpretation Code [facility] Work Phone: [phone] Office Visiton 10-18-2015 cardiac risk group C Invalid Interpretation Code [facility] Work Phone: [phone] General cardiovascular disease 10Y risk [#] [place] N/A Invalid Interpretation Code [facility] Work Phone: [phone] 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 Anion gap molar conc 5 mmol/L [facility] Work Phone: [phone] Calcium mass conc 8.2 mg/dL Low [facility] Work Phone: [phone] Chloride molar conc 107 mmol/L [facility] Work Phone: [phone] CO2 ppres (BldV) 27 mmol/L [facility] Work Phone: [phone] Creatinine mass conc 0.68 mg/dL [facility] Work Phone: [phone] Glucose mass conc 147 mg/dL High [facility] Work Phone: [phone] Potassium molar conc 4.2 mmol/L [facility] Work Phone: [phone] Sodium molar conc 139 mmol/L [facility] Work Phone: [phone] Urea nitrogen mass conc 11 mg/dL [facility] Work Phone: [phone] Urea nitrogen/Creatinine mass ratio 16.2 mg/mg [facility] Work Phone: [phone] 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 coli [facility] Work Phone: Vital Signs Date Time Vital Sign Value Performing Clinician Faci lity 03-15-2025 11:54-0400 Body height 154.[address] Sharif Christianson MD Work Phone: [facility] 03-15-2025 11:54-0400 Body mass index (BMI) [Ratio] 35.5 kg/m2 Dr. Sharif Christianson MD Work Phone: [facility] 03-15-2025 11:54-0400 Body temperature 98.3 [degF] Dr. Sharif Christianson MD Work Phone: [facility] 03-15-2025 11:54-0400 Body weight 85.[address] Sharif Christianson MD Work Phone: [facility] 03-15-2025 11:54-0400 Diastolic blood pressure 76 mm[Hg] Dr. Sharif Christianson MD Work Phone: [facility] 03-15-2025 11:54-0400 Heart rate 75 /min Dr. Sharif Christianson MD Work Phone: [facility] 03-15-2025 11:54-0400 Respiratory rate 18 /min Dr. Sharif Christianson MD Work Phone: [facility] 03-15-2025 11:54-0400 SaO2% (BldA) [Mass fraction] 97 % Dr. Sharif Christianson MD Work Phone: [facility] 03-15-2025 11:54-0400 Systolic blood pressure 144 mm[Hg] Dr. Sharif Christianson MD Work Phone: 8(181)611-752618 [place] [address] 03-08-2025 10:25-0400 Body temperature 97.8 [degF] Dr. Sharif Christianson MD Work Phone: 1(128)421-081218 [place] [address] 03-08-2025 10:25-0400 Body weight 84.[address] Sharif Christianson MD Work Phone: 9(795)160-514918 [place] [address] 03-08-2025 10:25-0400 Diastolic blood pressure 66 mm[Hg] Dr. Sharif Christianson MD Work Phone: 1(225)405-390718 [place] [address] 03-08-2025 10:25-0400 Heart rate 65 /min Dr. Sharif Christianson MD Work Phone: 7(642)857-482418 [place] [address] 03-08-2025 10:25-0400 Respiratory rate 14 /min Dr. Sharif Christianson MD Work Phone: 4(347)281-745718 [place] [address] 03-08-2025 10:25-0400 SaO2% (BldA) [Mass fraction] 99 % Dr. Sharif Christianson MD Work Phone: 4(865)613-511718 [place] [address] 03-08-2025 10:25-0400 Systolic blood pressure 132 mm[Hg] Dr. Sharif Christianson MD Work Phone: 6(723)777-777174 [place] [address] 02-22-2025 13:12-0400 Body temperature 96.3 [degF] Dr. Sharif Christianson MD Work Phone: 9(262)630-565718 [place] [address] 02-22-2025 13:12-0400 Diastolic blood pressure 56 mm[Hg] Dr. Sharif Christianson MD Work Phone: 9(412)116-652998 [address] 02-22-2025 13:12-0400 Heart rate 61 /min Dr. Sharif Christianson MD Work Phone: [facility] 02-22-2025 13:12-0400 Respiratory rate 16 /min Dr. Sharif Christianson MD Work Phone: [facility] 02-22-2025 13:12-0400 Systolic blood pressure 102 mm[Hg] Dr. Sharif Christianson MD Work Phone: 2(440)215-412374 [place] [address] 02-22-2025 10:39-0400 Body height 154.[address] Sharif Christianson MD Work Phone: 5(759)327-744374 [place] [address] 02-22-2025 10:39-0400 Body mass index (BMI) [Ratio] 35.4 kg/m2 Dr. Sharif Christianson MD Work Phone: 6(439)370-042698 [address] 02-22-2025 10:39-0400 Body temperature 98.1 [degF] Dr. Sharif Christianson MD Work Phone: 4(504)461-856974 [place] [address] 02-22-2025 10:39-0400 Body weight 84.[address] Sharif Christianson MD Work Phone: [facility] 02-22-2025 10:39-0400 Diastolic blood pressure 70 mm[Hg] Dr. Sharif Christianson MD Work Phone: [facility] 02-22-2025 10:39-0400 Heart rate 59 /min Dr. Sharif Christianson MD Work Phone: 7(680)509-524674 [place] [address] 02-22-2025 10:39-0400 Respiratory rate 18 /min Dr. Sharif Christianson MD Work Phone: [facility] 02-22-2025 10:39-0400 SaO2% (BldA) [Mass fraction] 98 % Dr. Sharif Christianson MD Work Phone: [facility] 02-22-2025 10:39-0400 Systolic blood pressure 113 mm[Hg] Dr. Sharif Christianson MD Work Phone: [facility] 01-25-2025 13:16-0400 Body height 154.[address] Sharif Christianson MD Work Phone: [facility] 01-25-2025 13:16-0400 Body mass index (BMI) [Ratio] 35.6 kg/m2 Dr. Sharif Christianson MD Work Phone: 7(618)645-387274 [place] [address] 01-25-2025 13:16-0400 Body temperature 97.7 [degF] Dr. Sharfi Christianson MD Work Phone: 3(161)411-226118 [place] [address] 01-25-2025 13:16-0400 Body weight 85.[address] Sharif Christianson MD Work Phone: 7(611)697-408318 [place] [address] 01-25-2025 13:16-0400 Diastolic blood pressure 76 mm[Hg] Dr. Sharif Christianson MD Work Phone: 8(683)540-993418 [place] [address] 01-25-2025 13:16-0400 Heart rate 64 /min Dr. Sharif Christianson MD Work Phone: 2(300)346-269618 [place] [address] 01-25-2025 13:16-0400 Respiratory rate 16 /min Dr. Sharif Christianson MD Work Phone: 3(531)122-186218 [place] [address] 01-25-2025 13:16-0400 SaO2% (BldA) [Mass fraction] 96 % Dr. Sharif Christianson MD Work Phone: 8(586)685-669518 [place] [address] 01-25-2025 13:16-0400 Systolic blood pressure 127 mm[Hg] Dr. Sharif Christianson MD Work Phone: 7(480)808-476474 [place] [address] 01-04-2025 13:16-0400 Body height 154.[address] Sharif Christianson MD Work Phone: 8(097)454-558418 [place] [address] 01-04-2025 13:16-0400 Body mass index (BMI) [Ratio] 35 kg/m2 Dr. Sharif Christianson MD Work Phone: 7(220)747-283018 [place] [address] 01-04-2025 13:16-0400 Body temperature 97.2 [degF] Dr. Sharif Christianson MD Work Phone: 0(374)725-786618 [place] [address] 01-04-2025 13:16-0400 Body weight 84.[address] Sharif Christianson MD Work Phone: [facility] 01-04-2025 13:16-0400 Diastolic blood pressure 69 mm[Hg] Dr. Sharif Christianson MD Work Phone: [facility] 01-04-2025 13:16-0400 Heart rate 64 /min Dr. Sharif Christianson MD Work Phone: 0(938)997-315074 [place] [address] 01-04-2025 13:16-0400 Respiratory rate 16 /min Dr. Sharif Christianson MD Work Phone: 3(217)594-141674 [place] [address] 01-04-2025 13:16-0400 SaO2% (BldA) [Mass fraction] 94 % Dr. Sharif Christianson MD Work Phone: 3(672)749-090574 [place] [address] 01-04-2025 13:16-0400 Systolic blood pressure 114 mm[Hg] Dr. Sharif Christianson MD Work Phone: 7(031)576-924974 [place] [address] 12-14-2024 10:41-0400 Body mass index (BMI) [Ratio] 34.2 kg/m2 Dr. Sharif Christianson MD Work Phone: 4(305)707-322174 [place] [address] 12-14-2024 10:41-0400 Body temperature 96.6 [degF] Dr. Sharif Christianson MD Work Phone: 3(930)264-326274 [place] [address] 12-14-2024 10:41-0400 Body weight 82.[address] Sharif Christianson MD Work Phone: [facility] 12-14-2024 10:41-0400 Diastolic blood pressure 73 mm[Hg] Dr. Sharif Christianson MD Work Phone: 6(323)826-256274 [place] [address] 12-14-2024 10:41-0400 Heart rate 69 /min Dr. Sharif Christianson MD Work Phone: [facility] 12-14-2024 10:41-0400 Respiratory rate 16 /min Dr. Sharif Christianson MD Work Phone: 6(601)617-235774 [place] [address] 12-14-2024 10:41-0400 SaO2% (BldA) [Mass fraction] 96 % Dr. Sharif Christianson MD Work Phone: 2(911)955-002974 [place] [address] 12-14-2024 10:41-0400 Systolic blood pressure 128 mm[Hg] Dr. Sharif Christianson MD Work Phone: 7(851)008-608218 [place] [address] 11-23-2024 09:28-0400 Body height 154.[address] Sharif Christianson MD Work Phone: 2(571)996-083418 [place] [address] 11-23-2024 09:28-0400 Body mass index (BMI) [Ratio] 34.1 kg/m2 Dr. Sharif Christianson MD Work Phone: 1(822)957-589018 [place] [address] 11-23-2024 09:28-0400 Body temperature 97.2 [degF] Dr. Sharif Christianson MD Work Phone: 8(647)413-240418 [place] [address] 11-23-2024 09:28-0400 Body weight 81.[address] Sharif Christianson MD Work Phone: 4(216)634-404618 [place] [address] 11-23-2024 09:28-0400 Diastolic blood pressure 68 mm[Hg] Dr. Sharif Christianson MD Work Phone: 8(489)532-243418 [place] [address] 11-23-2024 09:28-0400 Heart rate 71 /min Dr. Sharif Christianson MD Work Phone: 4(513)106-060318 [place] [address] 11-23-2024 09:28-0400 Respiratory rate 16 /min Dr. Sharif Christianson MD Work Phone: 8(336)559-729518 [place] [address] 11-23-2024 09:28-0400 SaO2% (BldA) [Mass fraction] 97 % Dr. Sharif Christianson MD Work Phone: 9(379)369-996618 [place] [address] 11-23-2024 09:28-0400 Systolic blood pressure 119 mm[Hg] Dr. Sharif Christianson MD Work Phone: 5(611)128-793818 [place] [address] 11-10-2024 13:17-0400 Body temperature 98.2 [degF] Dr. Sharif Christianson MD Work Phone: 0(670)604-326018 [place] [address] 11-10-2024 13:17-0400 Body weight [address] Sharif Christianson MD Work Phone: [facility] 11-10-2024 13:17-0400 Diastolic blood pressure 72 mm[Hg] Dr. Sharif Christianson MD Work Phone: 0(137)512-216574 [place] [address] 11-10-2024 13:17-0400 Heart rate 74 /min Dr. Sharif Christianson MD Work Phone: 4(442)788-524374 [place] [address] 11-10-2024 13:17-0400 Respiratory rate 18 /min Dr. Sharif Christianson MD Work Phone: 2(950)069-163974 [place] [address] 11-10-2024 13:17-0400 SaO2% (BldA) [Mass fraction] 97 % Dr. Sharif Christianson MD Work Phone: 9(464)998-661818 [place] [address] 11-10-2024 13:17-0400 Systolic blood pressure 122 mm[Hg] Dr. Sharif Christianson MD Work Phone: 2(417)650-888874 [place] [address] 11-02-2024 13:26-0400 Diastolic blood pressure 61 mm[Hg] Dr. Sharif Christianson MD Work Phone: 7(292)519-105618 [place] [address] 11-02-2024 13:26-0400 Systolic blood pressure 140 mm[Hg] Dr. Sharif Christianson MD Work Phone: 7(358)193-482518 [place] [address] 11-02-2024 10:11-0400 Body mass index (BMI) [Ratio] 34.2 kg/m2 Dr. Sharif Christianson MD Work Phone: 2(898)048-760974 [place] [address] 11-02-2024 10:11-0400 Body temperature 97.9 [degF] Dr. Sharif Christianson MD Work Phone: 3(491)269-286174 [place] [address] 11-02-2024 10:11-0400 Body weight 82.[address] Sharif Christianson MD Work Phone: 1(107)087-267974 [place] [address] 11-02-2024 10:11-0400 Diastolic blood pressure 73 mm[Hg] Dr. Sharif Christianson MD Work Phone: 5(693)398-698074 [place] [address] 11-02-2024 10:11-0400 Heart rate 69 /min Dr. Sharif Christianson MD Work Phone: [facility] 11-02-2024 10:11-0400 Respiratory rate 16 /min Dr. Sharif Christianson MD Work Phone: 6(836)601-830174 [place] [address] 11-02-2024 10:11-0400 SaO2% (BldA) [Mass fraction] 95 % Dr. Sharif Christianson MD Work Phone: 0(009)157-030374 [place] [address] 11-02-2024 10:11-0400 Systolic blood pressure 118 mm[Hg] Dr. Sharif Christianson MD Work Phone: 9(154)695-935818 [place] [address] 10-12-2024 13:12-0500 Body temperature 97.1 [degF] Dr. Sharif Christianson MD Work Phone: 4(474)527-871118 [place] [address] 10-12-2024 13:12-0500 Heart rate 61 /min Dr. Sharif Christianson MD Work Phone: 6(153)805-949374 [place] [address] 10-12-2024 13:12-0500 Respiratory rate 16 /min Dr. Sharif Christianson MD Work Phone: 4(597)008-093674 [place] [address] 10-12-2024 13:12-0500 SaO2% (BldA) [Mass fraction] 97 % Dr. Sharif Christianson MD Work Phone: 3(725)566-142598 [address] 10-12-2024 10:18-0500 Body mass index (BMI) [Ratio] 34.9 kg/m2 Dr. Sharif Christianson MD Work Phone: 1(132)471-653874 [place] [address] 10-12-2024 10:18-0500 Body temperature 96.9 [degF] Dr. Sharif Christianson MD Work Phone: 1(576)163-840074 [place] [address] 10-12-2024 10:18-0500 Body weight 84.[address] Sharif Christianson MD Work Phone: [facility] 10-12-2024 10:18-0500 Diastolic blood pressure 73 mm[Hg] Dr. Sharif Christianson MD Work Phone: [facility] 10-12-2024 10:18-0500 Heart rate 71 /min Dr. Sharif Christianson MD Work Phone: [facility] 10-12-2024 10:18-0500 Respiratory rate 16 /min Dr. Sharif Christianson MD Work Phone: 0(101)066-668074 [place] [address] 10-12-2024 10:18-0500 SaO2% (BldA) [Mass fraction] 94 % Dr. Sharif Christianson MD Work Phone: 6(641)425-648274 [place] [address] 10-12-2024 10:18-0500 Systolic blood pressure 150 mm[Hg] Dr. Sharif Christianson MD Work Phone: 8(169)304-846318 [place] [address] 09-21-2024 08:01-0500 Body mass index (BMI) [Ratio] 35 kg/m2 Dr. Sharif Christianson MD Work Phone: 8(753)240-175374 [place] [address] 09-21-2024 08:01-0500 Body temperature 97.9 [degF] Dr. Sharif Christianson MD Work Phone: 4(034)480-622974 [place] [address] 09-21-2024 08:01-0500 Body weight 84.[address] Sharif Christianson MD Work Phone: 1(865)704-970274 [place] [address] 09-21-2024 08:01-0500 Diastolic blood pressure 82 mm[Hg] Dr. Sharif Christianson MD Work Phone: 2(722)908-465774 [address] [place] [id number] 09-21-2024 08:01-0500 Heart rate 62 /min Dr. Sharif Christianson MD Work Phone: [facility] 09-21-2024 08:01-0500 Respiratory rate 18 /min Dr. Sharif Christianson MD Work Phone: 8(784)310-936074 [place] [address] 09-21-2024 08:01-0500 SaO2% (BldA) [Mass fraction] 93 % Dr. Sharif Christianson MD Work Phone: 6(731)143-958774 [place] [address] 09-21-2024 08:01-0500 Systolic blood pressure 142 mm[Hg] Dr. Sharif Christianson MD Work Phone: [facility] 09-06-2024 14:37-0500 Body mass index (BMI) [Ratio] 35.4 kg/m2 Dr. Sharif Christianson MD Work Phone: [facility] 09-06-2024 14:37-0500 Body temperature 97.4 [degF] Dr. Sharif Christianson MD Work Phone: 0(356)313-668174 [place] [address] 09-06-2024 14:37-0500 Body weight 84.[address] Sharif Christianson MD Work Phone: 8(266)117-813798 [address] 09-06-2024 14:37-0500 Diastolic blood pressure 80 mm[Hg] Dr. Sharif Christianson MD Work Phone: 2(323)743-122574 [place] [address] 09-06-2024 14:37-0500 Heart rate 79 /min Dr. Sharif Christianson MD Work Phone: 6(781)022-764574 [place] [address] 09-06-2024 14:37-0500 Respiratory rate 18 /min Dr. Sharif Christianson MD Work Phone: 5(142)908-109698 [address] 09-06-2024 14:37-0500 SaO2% (BldA) [Mass fraction] 96 % Dr. Sharif Christianson MD Work Phone: 1(833)275-884974 [place] [address] 09-06-2024 14:37-0500 Systolic blood pressure 137 mm[Hg] Dr. Sharif Christianson MD Work Phone: 9(532)344-877174 [place] [address] 08-31-2024 08:05-0500 Body mass index (BMI) [Ratio] 36.1 kg/m2 Dr. Sharif Christianson MD Work Phone: [facility] 08-31-2024 08:05-0500 Body weight 86.[address] Sharif Christianson MD Work Phone: [facility] 08-31-2024 08:05-0500 Diastolic blood pressure 73 mm[Hg] Dr. Sharif Christianson MD Work Phone: 1(379)260-458674 [place] [address] 08-31-2024 08:05-0500 Heart rate 68 /min Dr. Sharif Christianson MD Work Phone: [facility] 08-31-2024 08:05-0500 Respiratory rate 20 /min Dr. Sharif Christianson MD Work Phone: [facility] 08-31-2024 08:05-0500 SaO2% (BldA) [Mass fraction] 93 % Dr. Sharif Christianson MD Work Phone: 2(178)387-514074 [place] [address] 08-31-2024 08:05-0500 Systolic blood pressure 129 mm[Hg] Dr. Sharif Christianson MD Work Phone: 3(299)857-421574 [place] [address] 08-16-2024 09:47-0500 Body mass index (BMI) [Ratio] 35.6 kg/m2 Dr. Sharif Christianson MD Work Phone: 5(008)329-140598 [address] 08-09-2024 10:33-0500 Body mass index (BMI) [Ratio] 35 kg/m2 Dr. Sharif Christianson MD Work Phone: 3(080)987-227774 [place] [address] 08-09-2024 10:33-0500 Body temperature 97.6 [degF] Dr. Sharif Christianson MD Work Phone: 1(376)794-208374 [place] [address] 08-09-2024 10:33-0500 Body weight 86.[address] Sharif Christianson MD Work Phone: 1(232)036-457574 [place] [address] 08-09-2024 10:33-0500 Diastolic blood pressure 83 mm[Hg] Dr. Sharif Christianson MD Work Phone: [facility] 08-09-2024 10:33-0500 Heart rate 67 /min Dr. Sharif Christianson MD Work Phone: [facility] 08-09-2024 10:33-0500 Respiratory rate 18 /min Dr. Sharif Christianson MD Work Phone: [facility] 08-09-2024 10:33-0500 SaO2% (BldA) [Mass fraction] 95 % Dr. Sharif Christianson MD Work Phone: [facility] 08-09-2024 10:33-0500 Systolic blood pressure 156 mm[Hg] Dr. Sharif Christianson MD Work Phone: [facility] 12-08-2023 14:34-0400 Body height 157.[address] Sharif Christianson Work Phone: [facility] 12-08-2023 14:34-0400 Body mass index (BMI) [Ratio] 33.1 kg/m2 Dr. Sharif Christianson Work Phone: [facility] 12-08-2023 14:34-0400 Body temperature 97.3 [degF] Dr. Sharif Christianson Work Phone: 9(062)854-816674 [place] [address] 12-08-2023 14:34-0400 Body weight 82.[address] Sharif Christianson Work Phone: 4(772)574-140674 [place] [address] 12-08-2023 14:34-0400 Diastolic blood pressure 75 mm[Hg] Dr. Sharif Christianson Work Phone: [facility] 12-08-2023 14:34-0400 Heart rate 75 /min Dr. Sharif Christianson Work Phone: [facility] 12-08-2023 14:34-0400 Respiratory rate 18 /min Dr. Sharif Christianson Work Phone: [facility] 12-08-2023 14:34-0400 SaO2% (BldA) [Mass fraction] 97 % Dr. Sharif Christianson Work Phone: [facility] 12-08-2023 14:34-0400 Systolic blood pressure 121 mm[Hg] Dr. Sharif Christianson Work Phone: [facility] 11-03-2023 14:30-0400 Body height 157.[address] Sharif Christianson Work Phone: [facility] 11-03-2023 14:30-0400 Body mass index (BMI) [Ratio] 34.4 kg/m2 Dr. Sharif Christianson Work Phone: [facility] 11-03-2023 14:30-0400 Body temperature 97.9 [degF] Dr. Sharif Christianson Work Phone: [facility] 11-03-2023 14:30-0400 Body weight 85.[address] Sharif Christianson Work Phone: [facility] 11-03-2023 14:30-0400 Diastolic blood pressure 67 mm[Hg] Dr. Sharif Christianson Work Phone: [facility] 11-03-2023 14:30-0400 Heart rate 87 /min Dr. Sharif Christianson Work Phone: [facility] 11-03-2023 14:30-0400 Respiratory rate 16 /min Dr. Sharif Christianson Work Phone: [facility] 11-03-2023 14:30-0400 SaO2% (BldA) [Mass fraction] 98 % Dr. Sharif Christianson Work Phone: [facility] 11-03-2023 14:30-0400 Systolic blood pressure 133 mm[Hg] Dr. Sharif Christianson Work Phone: [facility] 10-30-2023 09:26-0400 Body mass index (BMI) [Ratio] 34.4 kg/m2 Dr. Sharif Christianson Work Phone: [facility] 10-30-2023 09:26-0400 Body temperature 97.6 [degF] Dr. Sharif Christianson Work Phone: [facility] 10-30-2023 09:26-0400 Body weight 85.[address] Sharif Christianson Work Phone: [facility] 10-30-2023 09:26-0400 Diastolic blood pressure 72 mm[Hg] Dr. Sharif Christianson Work Phone: [facility] 10-30-2023 09:26-0400 Heart rate 73 /min Dr. Sharif Christianson Work Phone: [facility] 10-30-2023 09:26-0400 Respiratory rate 18 /min Dr. Sharif Christianson Work Phone: [facility] 10-30-2023 09:26-0400 SaO2% (BldA) [Mass fraction] 96 % Dr. Sharif Christianson Work Phone: [facility] 10-30-2023 09:26-0400 Systolic blood pressure 116 mm[Hg] Dr. Sharif Christianson Work Phone: [facility] 10-06-2023 15:05-0500 Body mass index (BMI) [Ratio] 34.2 kg/m2 Dr. Sharif Christianson Work Phone: [facility] 10-06-2023 15:05-0500 Body temperature 96.9 [degF] Dr. Sharif Christianson Work Phone: [facility] 10-06-2023 15:05-0500 Body weight 84.[address] Sharif Christianson Work Phone: [facility] 10-06-2023 15:05-0500 Diastolic blood pressure 75 mm[Hg] Dr. Sharif Christianson Work Phone: [facility] 10-06-2023 15:05-0500 Heart rate 72 /min Dr. Sharif Christianson Work Phone: [facility] 10-06-2023 15:05-0500 Respiratory rate 18 /min Dr. Sharif Christianson Work Phone: [facility] 10-06-2023 15:05-0500 SaO2% (BldA) [Mass fraction] 94 % Dr. Sharif Christianson Work Phone: [facility] 10-06-2023 15:05-0500 Systolic blood pressure 112 mm[Hg] Dr. Sharif Christianson Work Phone: [facility] 10-06-2023 14:25-0500 Body mass index (BMI) [Ratio] 34.2 kg/m2 Dr. Sharif Christianson Work Phone: [facility] 10-06-2023 14:25-0500 Body temperature 96.9 [degF] Dr. Sharif Christianson Work Phone: [facility] 10-06-2023 14:25-0500 Body weight 84.[address] Sharif Christianson Work Phone: [facility] 10-06-2023 14:25-0500 Diastolic blood pressure 75 mm[Hg] Dr. Sharif Christianson Work Phone: [facility] 10-06-2023 14:25-0500 Heart rate 72 /min Dr. Sharif Christianson Work Phone: [facility] 10-06-2023 14:25-0500 Respiratory rate 18 /min Dr. Sharif Christianson Work Phone: [facility] 10-06-2023 14:25-0500 SaO2% (BldA) [Mass fraction] 94 % Dr. Sharif Christianson Work Phone: [facility] 10-06-2023 14:25-0500 Systolic blood pressure 112 mm[Hg] Dr. Sharif Christianson Work Phone: [facility] 09-09-2023 10:50-0500 Body height 157.48 cm [employer]-Rupal Simmons Matilde Work Phone: [facility] 09-09-2023 10:50-0500 Body mass index (BMI) [Ratio] 33.6 kg/m2 [employer] Iris Matilde Work Phone: [facility] 09-09-2023 10:50-0500 Body temperature 97.6 [degF] [employer]-Rupal Blantonhoward Work Phone: [facility] 09-09-2023 10:50-0500 Body weight 83.51 kg [employer]-Rupal Blantonhoward Work Phone: [facility] 09-09-2023 10:50-0500 Diastolic blood pressure 61 mm[Hg] [employer]-Rupal Blantonhoward Work Phone: [facility] 09-09-2023 10:50-0500 Heart rate 79 /min [employer] Iris Barkman Work Phone: [facility] 09-09-2023 10:50-0500 Respiratory rate 16 /min [employer] Iris Barkman Work Phone: [facility] 09-09-2023 10:50-0500 SaO2% (BldA) [Mass fraction] 94 % [employer] Iris Barkman Work Phone: [facility] 09-09-2023 10:50-0500 Systolic blood pressure 126 mm[Hg] [employer] Iris Barkman Work Phone: [facility] 09-08-2023 09:32-0500 Body mass index (BMI) [Ratio] 33.6 kg/m2 [employer] Iris Barkman Work Phone: [facility] 09-08-2023 09:32-0500 Body temperature 96.7 [degF] [employer] Iris Barkman Work Phone: [facility] 09-08-2023 09:32-0500 Body weight 83.46 kg [employer] Iris Barkman Work Phone: [facility] 09-08-2023 09:32-0500 Diastolic blood pressure 68 mm[Hg] [employer] Iris Barkman Work Phone: [facility] 09-08-2023 09:32-0500 Heart rate 69 /min [employer] Iris Barkman Work Phone: [facility] 09-08-2023 09:32-0500 Respiratory rate 18 /min [employer] Iris Barkman Work Phone: [facility] 09-08-2023 09:32-0500 SaO2% (BldA) [Mass fraction] 98 % [employer] Iris Barkman Work Phone: [facility] 09-08-2023 09:32-0500 Systolic blood pressure 110 mm[Hg] [employer] Iris Barkman Work Phone: [facility] 09-03-2023 10:53-0500 Body mass index (BMI) [Ratio] 34.1 kg/m2 [employer] Iris Blantonman Work Phone: [facility] 09-03-2023 10:53-0500 Body temperature 97.9 [degF] [employer] Irisesther Blantonman Work Phone: [facility] 09-03-2023 10:53-0500 Body weight 84.62 kg [employer] Irisesther Blantonman Work Phone: [facility] 09-03-2023 10:53-0500 Diastolic blood pressure 75 mm[Hg] [employer] Irisesther Blantonman Work Phone: [facility] 09-03-2023 10:53-0500 Heart rate 64 /min [employer] Irisesther Blantonman Work Phone: [facility] 09-03-2023 10:53-0500 Respiratory rate 18 /min [employer] Irisesther Clayton Work Phone: [facility] 09-03-2023 10:53-0500 SaO2% (BldA) [Mass fraction] 97 % [employer] Iris Clayton Work Phone: [facility] 09-03-2023 10:53-0500 Systolic blood pressure 113 mm[Hg] [employer] Irisesther Clayton Work Phone: [facility] 09-01-2023 09:27-0500 Body mass index (BMI) [Ratio] 34.2 kg/m2 [employer] Irisesther Clayton Work Phone: [facility] 09-01-2023 09:27-0500 Body temperature 96.8 [degF] [employer] Irisesther Blantonman Work Phone: [facility] 09-01-2023 09:27-0500 Body weight 84.87 kg [employer] Irisesther Blantonman Work Phone: [facility] 09-01-2023 09:27-0500 Diastolic blood pressure 59 mm[Hg] [employer] Iris Barkman Work Phone: [facility] 09-01-2023 09:27-0500 Heart rate 68 /min [employer] Iris Barkman Work Phone: [facility] 09-01-2023 09:27-0500 Respiratory rate 18 /min [employer] Iris Barkman Work Phone: [facility] 09-01-2023 09:27-0500 SaO2% (BldA) [Mass fraction] 96 % [employer] Irisesther Blantonman Work Phone: [facility] 09-01-2023 09:27-0500 Systolic blood pressure 79 mm[Hg] [employer] Iris Barkman Work Phone: [facility] 08-27-2023 10:35-0500 Body mass index (BMI) [Ratio] 34.4 kg/m2 [employer] Iris Barkman Work Phone: [facility] 08-27-2023 10:35-0500 Body temperature 97.3 [degF] [employer] Irisesther Blantonman Work Phone: [facility] 08-27-2023 10:35-0500 Body weight 85.44 kg [employer] Iris Barkman Work Phone: [facility] 08-27-2023 10:35-0500 Diastolic blood pressure 77 mm[Hg] [employer] Iris Barkman Work Phone: [facility] 08-27-2023 10:35-0500 Heart rate 68 /min [employer] Iris Barkman Work Phone: [facility] 08-27-2023 10:35-0500 Respiratory rate 18 /min [employer] Iris Barkman Work Phone: [facility] 08-27-2023 10:35-0500 SaO2% (BldA) [Mass fraction] 97 % [employer] Iris Barkman Work Phone: [facility] 08-27-2023 10:35-0500 Systolic blood pressure 112 mm[Hg] [employer] Iris Barkman Work Phone: [facility] 08-25-2023 08:52-0500 Body mass index (BMI) [Ratio] 34.2 kg/m2 [employer] Iris Barkman Work Phone: [facility] 08-25-2023 08:52-0500 Body temperature 97.7 [degF] [employer] Iris Barkman Work Phone: [facility] 08-25-2023 08:52-0500 Body weight 84.82 kg [employer] Iris Barkman Work Phone: [facility] 08-25-2023 08:52-0500 Diastolic blood pressure 75 mm[Hg] [employer] Iris Barkman Work Phone: [facility] 08-25-2023 08:52-0500 Heart rate 64 /min [employer] Iris Barkman Work Phone: [facility] 08-25-2023 08:52-0500 Respiratory rate 20 /min [employer] Iris Barkman Work Phone: [facility] 08-25-2023 08:52-0500 SaO2% (BldA) [Mass fraction] 98 % [employer] Iris Barkman Work Phone: [facility] 08-25-2023 08:52-0500 Systolic blood pressure 109 mm[Hg] [employer] Iris Barkman Work Phone: [facility] 08-20-2023 10:03-0500 Body mass index (BMI) [Ratio] 34.7 kg/m2 [employer] Iris Barkman Work Phone: [facility] 08-20-2023 10:03-0500 Body temperature 97 [degF] [employer] Iris Barkman Work Phone: [facility] 08-20-2023 10:03-0500 Body weight 86.29 kg [employer] Iris Barkman Work Phone: [facility] 08-20-2023 10:03-0500 Diastolic blood pressure 59 mm[Hg] [employer] Iris Barkman Work Phone: [facility] 08-20-2023 10:03-0500 Heart rate 63 /min [employer] Iris Barkman Work Phone: [facility] 08-20-2023 10:03-0500 Respiratory rate 16 /min [employer] Iris Barkman Work Phone: [facility] 08-20-2023 10:03-0500 SaO2% (BldA) [Mass fraction] 95 % [employer] Iris Barkman Work Phone: [facility] 08-20-2023 10:03-0500 Systolic blood pressure 114 mm[Hg] [employer] Iris Barkman Work Phone: [facility] 08-19-2023 09:09-0500 Body mass index (BMI) [Ratio] 34.4 kg/m2 [employer] Iris Barkman Work Phone: [facility] 08-19-2023 09:09-0500 Body weight 85.27 kg [employer] Iris Barkman Work Phone: [facility] 08-19-2023 09:09-0500 Diastolic blood pressure 71 mm[Hg] [employer] Iris Barkman Work Phone: [facility] 08-19-2023 09:09-0500 Heart rate 66 /min [employer] Iris Barkman Work Phone: [facility] 08-19-2023 09:09-0500 Respiratory rate 18 /min [employer] Iris Barkman Work Phone: [facility] 08-19-2023 09:09-0500 SaO2% (BldA) [Mass fraction] 99 % [employer] Iris Barkman Work Phone: [facility] 08-19-2023 09:09-0500 Systolic blood pressure 122 mm[Hg] [employer] Iris Barkman Work Phone: [facility] 08-19-2023 09:06-0500 Body mass index (BMI) [Ratio] 34.4 kg/m2 [employer] Irisesther Blantonman Work Phone: [facility] 08-19-2023 09:06-0500 Body temperature 97.5 [degF] [employer] Irisesther Blantonman Work Phone: [facility] 08-19-2023 09:06-0500 Body weight 85.27 kg [employer] Irisesther Blantonman Work Phone: [facility] 08-19-2023 09:06-0500 Diastolic blood pressure 63 mm[Hg] [employer] Irisesther Blantonman Work Phone: [facility] 08-19-2023 09:06-0500 Heart rate 57 /min [employer] Irisesther Blantonman Work Phone: [facility] 08-19-2023 09:06-0500 Respiratory rate 18 /min [employer] Irisesther Clayton Work Phone: [facility] 08-19-2023 09:06-0500 SaO2% (BldA) [Mass fraction] 97 % [employer] Iris Clayton Work Phone: [facility] 08-19-2023 09:06-0500 Systolic blood pressure 129 mm[Hg] [employer] Irisesther Blantonman Work Phone: [facility] 08-13-2023 10:55-0500 Body mass index (BMI) [Ratio] 35.1 kg/m2 [employer] Irisesther Blantonman Work Phone: [facility] 08-13-2023 10:55-0500 Body temperature 97.8 [degF] [employer] Irisesther Blantonman Work Phone: [facility] 08-13-2023 10:55-0500 Body weight 87.08 kg [employer] Irisesther Blantonman Work Phone: [facility] 08-13-2023 10:55-0500 Diastolic blood pressure 75 mm[Hg] [employer] Irisesther Blantonman Work Phone: [facility] 08-13-2023 10:55-0500 Heart rate 62 /min [employer] Irisesther Blantonman Work Phone: [facility] 08-13-2023 10:55-0500 Respiratory rate 16 /min [employer] Irisesther Blantonman Work Phone: [facility] 08-13-2023 10:55-0500 SaO2% (BldA) [Mass fraction] 95 % [employer] Irisesther Blantonman Work Phone: [facility] 08-13-2023 10:55-0500 Systolic blood pressure 124 mm[Hg] [employer] Irisesther Blantonman Work Phone: [facility] 08-12-2023 08:28-0500 Body mass index (BMI) [Ratio] 35.5 kg/m2 [employer] Iris Blantonman Work Phone: [facility] 08-12-2023 08:28-0500 Body temperature 97.8 [degF] [employer] Iris Clayton Work Phone: [facility] 08-12-2023 08:28-0500 Body weight 88.13 kg [employer] Iris Blantonman Work Phone: [facility] 08-12-2023 08:28-0500 Diastolic blood pressure 65 mm[Hg] [employer] Irisesther Blantonman Work Phone: [facility] 08-12-2023 08:28-0500 Heart rate 61 /min [employer] Iris Barkman Work Phone: [facility] 08-12-2023 08:28-0500 Respiratory rate 18 /min [employer] Iris Barkman Work Phone: [facility] 08-12-2023 08:28-0500 SaO2% (BldA) [Mass fraction] 96 % [employer] Irisesther Blantonman Work Phone: [facility] 08-12-2023 08:28-0500 Systolic blood pressure 137 mm[Hg] [employer] Iris Barkman Work Phone: [facility] 08-06-2023 10:54-0500 Body mass index (BMI) [Ratio] 34.8 kg/m2 [employer] Iris Barkman Work Phone: [facility] 08-06-2023 10:54-0500 Body temperature 97.5 [degF] [employer] Iris Barkman Work Phone: [facility] 08-06-2023 10:54-0500 Body weight 86.38 kg [employer] Iris Barkman Work Phone: [facility] 08-06-2023 10:54-0500 Diastolic blood pressure 69 mm[Hg] [employer] Iris Barkman Work Phone: [facility] 08-06-2023 10:54-0500 Heart rate 64 /min [employer] Iris Barkman Work Phone: [facility] 08-06-2023 10:54-0500 Respiratory rate 18 /min [employer] Iris Barkman Work Phone: [facility] 08-06-2023 10:54-0500 SaO2% (BldA) [Mass fraction] 96 % [employer] Iris Barkman Work Phone: [facility] 08-06-2023 10:54-0500 Systolic blood pressure 116 mm[Hg] [employer] Iris Barkman Work Phone: [facility] 08-04-2023 12:49-0500 Body temperature 97.5 [degF] [employer] Iris Barkman Work Phone: [facility] 08-04-2023 12:49-0500 Diastolic blood pressure 47 mm[Hg] [employer] Iris Barkman Work Phone: [facility] 08-04-2023 12:49-0500 Heart rate 70 /min [employer] Iris Barkman Work Phone: [facility] 08-04-2023 12:49-0500 Respiratory rate 16 /min [employer] Iris Clayton Work Phone: [facility] 08-04-2023 12:49-0500 Systolic blood pressure 122 mm[Hg] [employer] Iris Barkman Work Phone: [facility] 08-04-2023 08:06-0500 Body mass index (BMI) [Ratio] 34.9 kg/m2 [employer] Irisesther Blantonman Work Phone: [facility] 08-04-2023 08:06-0500 Body temperature 97.5 [degF] [employer] Irisesther Blantonman Work Phone: [facility] 08-04-2023 08:06-0500 Body weight 86.74 kg PRESS [employer]-C Irisesther Clayton Work Phone: [facility] 08-04-2023 08:06-0500 Diastolic blood pressure 64 mm[Hg] [employer] Irisesther Blantonman Work Phone: [facility] 08-04-2023 08:06-0500 Heart rate 57 /min [employer] Irisesther Clayton Work Phone: [facility] 08-04-2023 08:06-0500 Respiratory rate 18 /min [employer] Irisesther Clayton Work Phone: [facility] 08-04-2023 08:06-0500 SaO2% (BldA) [Mass fraction] 97 % [employer]ESS [employer] Irisesther Clayton Work Phone: [facility] 08-04-2023 08:06-0500 Systolic blood pressure 104 mm[Hg] [employer] Irisesther Blantonman Work Phone: [facility] 07-30-2023 11:01-0500 Body mass index (BMI) [Ratio] 35.3 kg/m2 [employer] Iris Barkman Work Phone: [facility] 07-30-2023 11:01-0500 Body temperature 97.4 [degF] [employer] Iris Barkman Work Phone: [facility] 07-30-2023 11:01-0500 Body weight 87.57 kg [employer] Iris Barkman Work Phone: [facility] 07-30-2023 11:01-0500 Diastolic blood pressure 78 mm[Hg] [employer] Iris Barkman Work Phone: [facility] 07-30-2023 11:01-0500 Heart rate 54 /min [employer] Iris Barkman Work Phone: [facility] 07-30-2023 11:01-0500 Respiratory rate 18 /min [employer] Iris Barkman Work Phone: [facility] 07-30-2023 11:01-0500 SaO2% (BldA) [Mass fraction] 95 % [employer] Iris Barkman Work Phone: [facility] 07-30-2023 11:01-0500 Systolic blood pressure 129 mm[Hg] [employer] Iris Barkman Work Phone: [facility] 07-28-2023 13:12-0500 Body temperature 97.5 [degF] [employer] Iris Barkman Work Phone: [facility] 07-28-2023 13:12-0500 Diastolic blood pressure 60 mm[Hg] [employer] Iris Barkman Work Phone: [facility] 07-28-2023 13:12-0500 Heart rate 71 /min [employer] Iris Barkman Work Phone: [facility] 07-28-2023 13:12-0500 Respiratory rate 16 /min [employer] Iris Barkman Work Phone: [facility] 07-28-2023 13:12-0500 SaO2% (BldA) [Mass fraction] 93 % [employer] Iris Barkman Work Phone: [facility] 07-28-2023 13:12-0500 Systolic blood pressure 133 mm[Hg] [employer] Iris Barkman Work Phone: [facility] 07-28-2023 09:03-0500 Body height 157.48 cm [employer] Iris Barkman Work Phone: [facility] 07-28-2023 09:03-0500 Body mass index (BMI) [Ratio] 34.9 kg/m2 [employer] Irisesther Balntonman Work Phone: [facility] 07-28-2023 09:03-0500 Body temperature 97.4 [degF] [employer] Irisesther Blantonman Work Phone: [facility] 07-28-2023 09:03-0500 Body weight 86.74 kg [employer] Irisesther Blantonman Work Phone: [facility] 07-28-2023 09:03-0500 Diastolic blood pressure 85 mm[Hg] [employer] Irisesther Blantonman Work Phone: [facility] 07-28-2023 09:03-0500 Heart rate 57 /min [employer] Irisesther Blantonman Work Phone: [facility] 07-28-2023 09:03-0500 Respiratory rate 18 /min [employer] Irisesther Blantonman Work Phone: [facility] 07-28-2023 09:03-0500 SaO2% (BldA) [Mass fraction] 96 % [employer]ESS [employer] Irisesther Blantonman Work Phone: [facility] 07-28-2023 09:03-0500 Systolic blood pressure 153 mm[Hg] [employer] Iris Barkman Work Phone: [facility] 07-22-2023 13:14-0500 Body temperature 97.6 [degF] [employer] Iris Barkman Work Phone: [facility] 07-22-2023 13:14-0500 Diastolic blood pressure 54 mm[Hg] [employer] Iris Barkman Work Phone: [facility] 07-22-2023 13:14-0500 Heart rate 68 /min [employer] Iris Barkman Work Phone: [facility] 07-22-2023 13:14-0500 Respiratory rate 18 /min [employer] Iris Blantonman Work Phone: [facility] 07-22-2023 13:14-0500 SaO2% (BldA) [Mass fraction] 95 % [employer] Iris Clayton Work Phone: [facility] 07-22-2023 13:14-0500 Systolic blood pressure 120 mm[Hg] [employer] Iris Clayton Work Phone: [facility] 07-22-2023 11:25-0500 Body height 157.48 cm [employer] Iris Clayton Work Phone: [facility] 07-22-2023 11:25-0500 Body mass index (BMI) [Ratio] 35 kg/m2 [employer] Iris Clayton Work Phone: [facility] 07-22-2023 11:25-0500 Body weight 87 kg [employer] Iris Clayton Work Phone: [facility] 07-18-2023 10:11-0500 Body mass index (BMI) [Ratio] 34.6 kg/m2 [employer] Iris Clayton Work Phone: [facility] 07-18-2023 10:11-0500 Body temperature 97.2 [degF] [employer] Iris Clayton Work Phone: [facility] 07-18-2023 10:11-0500 Body weight 85.95 kg [employer] Iris Clayton Work Phone: [facility] 07-18-2023 10:11-0500 Diastolic blood pressure 60 mm[Hg] [employer] Iris Blantonman Work Phone: [facility] 07-18-2023 10:11-0500 Heart rate 63 /min [employer] Iris Blantonman Work Phone: [facility] 07-18-2023 10:11-0500 Respiratory rate 18 /min [employer] Iris Clayton Work Phone: [facility] 07-18-2023 10:11-0500 SaO2% (BldA) [Mass fraction] 95 % [employer] Iris Clayton Work Phone: [facility] 07-18-2023 10:11-0500 Systolic blood pressure 119 mm[Hg] [employer] Iris Blantonman Work Phone: [facility] 07-17-2023 08:51-0500 Body mass index (BMI) [Ratio] 35 kg/m2 [employer] Iris Clayton Work Phone: [facility] 07-17-2023 08:51-0500 Body temperature 98.1 [degF] [employer] Iris Clayton Work Phone: [facility] 07-17-2023 08:51-0500 Body weight 86.83 kg [employer] Iris Clayton Work Phone: [facility] 07-17-2023 08:51-0500 Diastolic blood pressure 84 mm[Hg] [employer] Iris Clayton Work Phone: [facility] 07-17-2023 08:51-0500 Heart rate 59 /min [employer] Iris Clayton Work Phone: [facility] 07-17-2023 08:51-0500 Respiratory rate 18 /min [employer] Iris Clayton Work Phone: [facility] 07-17-2023 08:51-0500 SaO2% (BldA) [Mass fraction] 97 % [employer] Iris Clayton Work Phone: [facility] 07-17-2023 08:51-0500 Systolic blood pressure 124 mm[Hg] [employer] Irisesther Blantonman Work Phone: [facility] 07-16-2023 07:16-0500 Body mass index (BMI) [Ratio] 35.1 kg/m2 [employer] Irisesther Blantonman Work Phone: [facility] 07-16-2023 07:16-0500 Body weight 87.08 kg [employer] Iris Barkman Work Phone: [facility] 07-09-2023 09:10-0500 Body weight 85.27 kg [employer] Iris Barkman Work Phone: [facility] 07-09-2023 09:09-0500 Body mass index (BMI) [Ratio] 34.4 kg/m2 [employer] Iris Barkman Work Phone: [facility] 07-04-2023 14:34-0500 Body mass index (BMI) [Ratio] 34.4 kg/m2 [employer] Iris Barkman Work Phone: [facility] 07-04-2023 14:34-0500 Body weight 85.27 kg [employer] Iris Barkman Work Phone: [facility] 07-04-2023 14:34-0500 Diastolic blood pressure 59 mm[Hg] [employer] Iris Barkman Work Phone: [facility] 07-04-2023 14:34-0500 Heart rate 56 /min [employer] Iris Barkman Work Phone: [facility] 07-04-2023 14:34-0500 Respiratory rate 16 /min [employer] Iris Barkman Work Phone: [facility] 07-04-2023 14:34-0500 Systolic blood pressure 97 mm[Hg] [employer] Iris Barkman Work Phone: [facility] 07-04-2023 09:55-0500 Body mass index (BMI) [Ratio] 34.6 kg/m2 [employer] Iris Barkman Work Phone: [facility] 07-04-2023 09:55-0500 Body temperature 97.8 [degF] [employer] Iris Barkman Work Phone: [facility] 07-04-2023 09:55-0500 Body weight 85.92 kg [employer] Iris Barkman Work Phone: [facility] 07-04-2023 09:55-0500 Diastolic blood pressure 76 mm[Hg] [employer] Irisesther Blantonman Work Phone: [facility] 07-04-2023 09:55-0500 Heart rate 58 /min [employer] Irisesther Blantonman Work Phone: [facility] 07-04-2023 09:55-0500 Respiratory rate 18 /min [employer] Irisesther Clayton Work Phone: [facility] 07-04-2023 09:55-0500 SaO2% (BldA) [Mass fraction] 96 % [employer] Iris Clayton Work Phone: [facility] 07-04-2023 09:55-0500 Systolic blood pressure 114 mm[Hg] [employer] Iris Clayton Work Phone: [facility] 07-02-2023 09:02-0500 Body mass index (BMI) [Ratio] 34.2 kg/m2 [employer] Iris Clayton Work Phone: [facility] 07-02-2023 09:02-0500 Body temperature 97.6 [degF] [employer] Iris Clayton Work Phone: [facility] 07-02-2023 09:02-0500 Body weight 84.87 kg [employer] Iris Clayton Work Phone: [facility] 07-02-2023 09:02-0500 Diastolic blood pressure 85 mm[Hg] [employer] Irisesther Clayton Work Phone: [facility] 07-02-2023 09:02-0500 Heart rate 55 /min [employer] Irisesther Blantonman Work Phone: [facility] 07-02-2023 09:02-0500 Respiratory rate 16 /min [employer] Irisesther Blantonman Work Phone: [facility] 07-02-2023 09:02-0500 SaO2% (BldA) [Mass fraction] 97 % [employer] Iris Barkman Work Phone: [facility] 07-02-2023 09:02-0500 Systolic blood pressure 147 mm[Hg] [employer] Iris Blantonman Work Phone: [facility] 06-14-2023 11:00-0400 SaO2% (BldA) [Mass fraction] 93 % [employer] Iris Clayton Work Phone: [facility] 06-14-2023 09:36-0400 Diastolic blood pressure 59 mm[Hg] [employer] Iris Clayton Work Phone: [facility] 06-14-2023 09:36-0400 Heart rate 67 /min [employer] Iris Clayton Work Phone: [facility] 06-14-2023 09:36-0400 Systolic blood pressure 117 mm[Hg] [employer] Iris Clayton Work Phone: [facility] 06-14-2023 09:01-0400 SaO2% (BldA) [Mass fraction] 96 % [employer] Iris Clayton Work Phone: [facility] 06-14-2023 08:23-0400 Body temperature 98.7 [degF] [employer] Iris Clayton Work Phone: [facility] 06-14-2023 08:23-0400 Respiratory rate 16 /min [employer] Iris Clayton Work Phone: [facility] 06-13-2023 08:55-0400 Inhaled oxygen flow rate 2 L/min [employer] Iris Clayton Work Phone: [facility] 06-12-2023 10:22-0400 Body height 157.48 cm [employer] Iris Clayton Work Phone: [facility] 06-12-2023 10:22-0400 Body weight 86 kg [employer]ESS [employer] Iris Clayton Work Phone: [facility] 06-11-2023 19:53-0400 Body mass index (BMI) [Ratio] 34.7 kg/m2 [employer] Iris Clayton Work Phone: [facility] 06-11-2023 19:40-0400 Diastolic blood pressure 67 mm[Hg] [facility] 06-11-2023 19:40-0400 Systolic blood pressure 115 mm[Hg] [facility] 06-11-2023 18:46-0400 Heart rate 79 /min [facility] 06-11-2023 18:46-0400 Respiratory rate 16 /min [facility] 06-11-2023 18:46-0400 SaO2% (BldA) [Mass fraction] 92 % [facility] 06-11-2023 12:58-0400 Body height 157.48 cm [facility] 06-11-2023 12:58-0400 Body mass index (BMI) [Ratio] 26.9 kg/m2 [facility] 06-11-2023 12:58-0400 Body temperature 98.2 [degF] [facility] 06-11-2023 12:58-0400 Body weight 66.67 kg [facility] 05-01-2023 11:58-0400 Diastolic blood pressure 63 mm[Hg] [employer] Iris Clayton Work Phone: [facility] 05-01-2023 11:58-0400 Heart rate 61 /min [employer] Iris Clayton Work Phone: [facility] 05-01-2023 11:58-0400 Respiratory rate 16 /min [employer] Iris Clayton Work Phone: [facility] 05-01-2023 11:58-0400 SaO2% (BldA) [Mass fraction] 94 % [employer] Iris Clayton Work Phone: [facility] 05-01-2023 11:58-0400 Systolic blood pressure 112 mm[Hg] [employer] Iris Clayton Work Phone: [facility] 05-01-2023 10:13-0400 Inhaled oxygen flow rate 2 L/min [employer] Iris Barkman Work Phone: [facility] 05-01-2023 08:16-0400 Body height 157.48 cm [employer] Iris Clayton Work Phone: [facility] 05-01-2023 08:16-0400 Body mass index (BMI) [Ratio] 32.9 kg/m2 [employer] Irisesther Blantonman Work Phone: [facility] 05-01-2023 08:16-0400 Body temperature 97.4 [degF] [employer] Irisesther Blantonman Work Phone: [facility] 05-01-2023 08:16-0400 Body weight 81.64 kg [employer] Iris Clayton Work Phone: [facility] 01-29-2023 10:54-0400 Body height 157.48 cm [employer] Iris Clayton Work Phone: [facility] 01-29-2023 10:54-0400 Body mass index (BMI) [Ratio] 35.8 kg/m2 [employer] Iris Clayton Work Phone: [facility] 01-29-2023 10:54-0400 Body temperature 98.2 [degF] [employer] Iris Clayton Work Phone: [facility] 01-29-2023 10:54-0400 Body weight 88.9 kg PRESS [employer] Irisesther Clayton Work Phone: [facility] 01-29-2023 10:54-0400 Diastolic blood pressure 72 mm[Hg] PR[employer] Irisetsher Clayton Work Phone: [facility] 01-29-2023 10:54-0400 Heart rate 75 /min [employer] Irisesther Blantonman Work Phone: [facility] 01-29-2023 10:54-0400 Respiratory rate 17 /min [employer] Irisesther Blantonman Work Phone: [facility] 01-29-2023 10:54-0400 SaO2% (BldA) [Mass fraction] 94 % [employer] Iris Barkman Work Phone: [facility] 01-29-2023 10:54-0400 Systolic blood pressure 117 mm[Hg] PRESS HANDTim Clayton Work Phone: [facility] 10-01-2022 08:44-0500 Body height 157.[address] Sharif Christianson Work Phone: [facility] 10-01-2022 08:44-0500 Body mass index (BMI) [Ratio] 32.1 kg/m2 Dr. Sharif Christianson Work Phone: [facility] 10-01-2022 08:44-0500 Body weight 79.[address] Sharif Christianson Work Phone: [facility] 10-01-2022 08:44-0500 Diastolic blood pressure 72 mm[Hg] Dr. Sharif Christianson Work Phone: [facility] 10-01-2022 08:44-0500 Heart rate 66 /min Dr. Sharif Christianson Work Phone: [facility] 10-01-2022 08:44-0500 Respiratory rate 18 /min Dr. Sharif Christianson Work Phone: [facility] 10-01-2022 08:44-0500 Systolic blood pressure 125 mm[Hg] Dr. Sharif Christianson Work Phone: [facility] 07-30-2022 09:47-0500 Body height 157.[address] Sharif Christianson Work Phone: [facility] Work Phone: 07-30-2022 09:45-0500 Body mass index (BMI) [Ratio] 30.5 kg/m2 Dr. Sharif Christianson Work Phone: [facility] 07-30-2022 09:45-0500 Body temperature 97.4 [degF] Dr. Sharif Christianson Work Phone: [facility] 07-30-2022 09:45-0500 Body weight 75.[address] Sharif Christianson Work Phone: [facility] 07-30-2022 09:45-0500 Diastolic blood pressure 63 mm[Hg] Dr. Sharif Christianson Work Phone: [facility] 07-30-2022 09:45-0500 Heart rate 55 /min Dr. Sharif Christianson Work Phone: [facility] 07-30-2022 09:45-0500 Respiratory rate 16 /min Dr. Sharif Christianson Work Phone: [facility] 07-30-2022 09:45-0500 SaO2% (BldA) [Mass fraction] 98 % Dr. Sharif Christianson Work Phone: [facility] 07-30-2022 09:45-0500 Systolic blood pressure 98 mm[Hg] Dr. Sharif Christianson Work Phone: [facility] 05-30-2022 08:32-0400 Body height 157.[address] Sharif Christianson Work Phone: [facility] Work Phone: 05-30-2022 08:32-0400 Body mass index (BMI) [Ratio] 29.2 kg/m2 Dr. Sharif Christianson Work Phone: [facility] Work Phone: 05-30-2022 08:32-0400 Body weight 72.[address] Sharif Christianson Work Phone: [facility] Work Phone: 05-30-2022 08:32-0400 Diastolic blood pressure 82 mm[Hg] Dr. Sharif Christianson Work Phone: [facility] Work Phone: 05-30-2022 08:32-0400 Heart rate 69 /min Dr. Sharif Christianson Work Phone: [facility] Work Phone: 05-30-2022 08:32-0400 Respiratory rate 18 /min Dr. Sharif Christianson Work Phone: [facility] Work Phone: 05-30-2022 08:32-0400 SaO2% (BldA) [Mass fraction] 98 % Dr. Sharif Christianson Work Phone: [facility] Work Phone: 05-30-2022 08:32-0400 Systolic blood pressure 134 mm[Hg] Dr. Sharif Christianson Work Phone: [facility] Work Phone: 05-23-2022 10:42-0400 Body height 160 cm Bryce Greer MD Work Phone: [facility] 05-23-2022 10:42-0400 Body weight 73 kg Bryce Greer MD Work Phone: [facility] 05-23-2022 10:42-0400 Diastolic blood pressure 72 mm[Hg] Bryce Greer MD Work Phone: [facility] 05-23-2022 10:42-0400 Heart rate 65 /min Bryce Greer MD Work Phone: [facility] 05-23-2022 10:42-0400 SaO2% (BldA) [Mass fraction] 98 % Bryce Greer MD Work Phone: [facility] 05-23-2022 10:42-0400 Systolic blood pressure 128 mm[Hg] Bryce Greer MD Work Phone: [facility] 05-07-2022 10:53-0400 Body height 160 cm Bryce Greer MD Work Phone: [facility] 05-07-2022 10:53-0400 Body weight 71 kg Bryce Greer MD Work Phone: [facility] 05-07-2022 10:53-0400 Diastolic blood pressure 78 mm[Hg] Bryce Greer MD Work Phone: [facility] 05-07-2022 10:53-0400 Heart rate 58 /min Bryce Greer MD Work Phone: [facility] 05-07-2022 10:53-0400 SaO2% (BldA) [Mass fraction] 98 % Bryce Greer MD Work Phone: [facility] 05-07-2022 10:53-0400 Systolic blood pressure 112 mm[Hg] Bryce Greer MD Work Phone: [facility] 05-02-2022 16:33-0400 Body temperature 97.6 [degF] Dr. Sharif Christianson Work Phone: [facility] 05-02-2022 16:33-0400 Diastolic blood pressure 73 mm[Hg] Dr. Sharif Christianson Work Phone: [facility] 05-02-2022 16:33-0400 Heart rate 64 /min Dr. Sharif Christianson Work Phone: [facility] 05-02-2022 16:33-0400 Respiratory rate 16 /min Dr. Sharif Christianson Work Phone: [facility] 05-02-2022 16:33-0400 SaO2% (BldA) [Mass fraction] 97 % Dr. Sharif Christianson Work Phone: [facility] 05-02-2022 16:33-0400 Systolic blood pressure 127 mm[Hg] Dr. Sharif Christianson Work Phone: [facility] 05-02-2022 14:24-0400 Body mass index (BMI) [Ratio] 28.1 kg/m2 Dr. Sharif Christianson Work Phone: [facility] 05-02-2022 14:24-0400 Body weight 69.[address] Sharif Christianson Work Phone: [facility] 04-29-2022 11:04-0400 Body mass index (BMI) [Ratio] 28.3 kg/m2 Dr. Sharif Christianson Work Phone: [facility] Work Phone: 04-29-2022 11:04-0400 Body temperature 97.1 [degF] Dr. Sharif Christianson Work Phone: [facility] Work Phone: 04-29-2022 11:04-0400 Body weight 70.[address] Sharif Christianson Work Phone: [facility] Work Phone: 04-29-2022 11:04-0400 Diastolic blood pressure 74 mm[Hg] Dr. Sharif Christianson Work Phone: [facility] Work Phone: 04-29-2022 11:04-0400 Heart rate 65 /min Dr. Sharif Christianson Work Phone: [facility] Work Phone: 04-29-2022 11:04-0400 Respiratory rate 18 /min Dr. Sharif Christianson Work Phone: [facility] Work Phone: 04-29-2022 11:04-0400 SaO2% (BldA) [Mass fraction] 97 % Dr. Sharif Christianson Work Phone: [facility] Work Phone: 04-29-2022 11:04-0400 Systolic blood pressure 117 mm[Hg] Dr. Sharif Christianson Work Phone: [facility] Work Phone: 04-23-2022 12:21-0400 Diastolic blood pressure 49 mm[Hg] Dr. Sharif Christianson Work Phone: [facility] Work Phone: 04-23-2022 12:21-0400 Heart rate 59 /min Dr. Sharif Christianson Work Phone: [facility] Work Phone: 04-23-2022 12:21-0400 Systolic blood pressure 117 mm[Hg] Dr. Sharif Christianson Work Phone: [facility] Work Phone: 04-23-2022 10:19-0400 Body height 157.[address] Sharif Christianson Work Phone: [facility] Work Phone: 04-23-2022 10:19-0400 Body mass index (BMI) [Ratio] 26.5 kg/m2 Dr. Sharif Christianson Work Phone: [facility] Work Phone: 04-23-2022 10:19-0400 Body temperature 96.9 [degF] Dr. Sharif Christianson Work Phone: [facility] Work Phone: 04-23-2022 10:19-0400 Body weight 65.[address] Sharif Christianson Work Phone: [facility] Work Phone: 04-23-2022 10:19-0400 Respiratory rate 18 /min Dr. Sharif Christianson Work Phone: [facility] Work Phone: 04-23-2022 10:19-0400 SaO2% (BldA) [Mass fraction] 100 % Dr. Sharif Christianson Work Phone: [facility] Work Phone: 04-18-2022 13:49-0400 Body height 160 cm Bryce Greer MD Work Phone: [facility] 04-18-2022 13:49-0400 Body weight 68.2 kg Bryce Greer MD Work Phone: [facility] 04-18-2022 13:49-0400 Diastolic blood pressure 70 mm[Hg] Bryce Greer MD Work Phone: [facility] 04-18-2022 13:49-0400 Heart rate 76 /min Bryce Greer MD Work Phone: [facility] 04-18-2022 13:49-0400 SaO2% (BldA) [Mass fraction] 96 % Bryce Greer MD Work Phone: [facility] 04-18-2022 13:49-0400 Systolic blood pressure 110 mm[Hg] Bryce Greer MD Work Phone: [facility] 04-17-2022 13:14-0400 Body temperature 96 [degF] Dr. Sharif Christianson Work Phone: [facility] Work Phone: 04-17-2022 13:14-0400 Diastolic blood pressure 50 mm[Hg] Dr. Sharif Christianson Work Phone: [facility] Work Phone: 04-17-2022 13:14-0400 Heart rate 52 /min Dr. Sharif Christianson Work Phone: [facility] Work Phone: 04-17-2022 13:14-0400 Respiratory rate 18 /min Dr. Sharif Christianson Work Phone: [facility] Work Phone: 04-17-2022 13:14-0400 SaO2% (BldA) [Mass fraction] 94 % Dr. Sharif Christianson Work Phone: [facility] Work Phone: 04-17-2022 13:14-0400 Systolic blood pressure 118 mm[Hg] Dr. Sharif Christianson Work Phone: [facility] Work Phone: 04-16-2022 07:34-0400 Body temperature 98.7 [degF] Dr. Sharif Christianson Work Phone: [facility] Work Phone: 04-16-2022 07:34-0400 Diastolic blood pressure 66 mm[Hg] Dr. Sharif hCristianson Work Phone: [facility] Work Phone: 04-16-2022 07:34-0400 Heart rate 56 /min Dr. Sharif Christianson Work Phone: [facility] Work Phone: 04-16-2022 07:34-0400 Respiratory rate 16 /min Dr. Sharif Christianson Work Phone: [facility] Work Phone: 04-16-2022 07:34-0400 SaO2% (BldA) [Mass fraction] 97 % Dr. Sharif Christianson Work Phone: [facility] Work Phone: 04-16-2022 07:34-0400 Systolic blood pressure 132 mm[Hg] Dr. Sharif Christianson Work Phone: [facility] Work Phone: 04-13-2022 12:30-0400 Body height 157.[address] Sharif Christianson Work Phone: [facility] Work Phone: 04-13-2022 12:30-0400 Body weight 67.[address] Sharif Christianson Work Phone: [facility] Work Phone: 04-05-2022 16:36-0400 Body mass index (BMI) [Ratio] 24.5 kg/m2 Dr. Sharif Christianson Work Phone: [facility] Work Phone: 03-28-2022 12:00-0400 Diastolic blood pressure 54 mm[Hg] Dr. Sharif Christianson Work Phone: [facility] Work Phone: 03-28-2022 12:00-0400 Heart rate 65 /min Dr. Sharif Christianson Work Phone: [facility] Work Phone: 03-28-2022 12:00-0400 Inhaled oxygen flow rate 2 L/min Dr. Sharif Christianson Work Phone: [facility] Work Phone: 03-28-2022 12:00-0400 Respiratory rate 18 /min Dr. Sharif Christianson Work Phone: [facility] Work Phone: 03-28-2022 12:00-0400 SaO2% (BldA) [Mass fraction] 97 % Dr. Sharif Christianson Work Phone: [facility] Work Phone: 03-28-2022 12:00-0400 Systolic blood pressure 122 mm[Hg] Dr. Sharif Christianson Work Phone: [facility] Work Phone: 03-28-2022 11:15-0400 Body temperature 96.3 [degF] Dr. Sharif Christianson Work Phone: [facility] Work Phone: 03-28-2022 10:32-0400 Body height 157.[address] Sharif Christianson Work Phone: [facility] Work Phone: 03-28-2022 10:32-0400 Body mass index (BMI) [Ratio] 31.7 kg/m2 Dr. Sharif Christianson Work Phone: [facility] Work Phone: 03-28-2022 10:32-0400 Body weight 78.[address] Sharif Christianson Work Phone: [facility] Work Phone: 03-25-2022 15:17-0400 Body temperature 97.5 [degF] Dr. Sharif Christianson Work Phone: [facility] Work Phone: 03-25-2022 15:17-0400 Diastolic blood pressure 61 mm[Hg] Dr. Sharif Christianson Work Phone: [facility] Work Phone: 03-25-2022 15:17-0400 Heart rate 75 /min Dr. Sharif Christianson Work Phone: [facility] Work Phone: 03-25-2022 15:17-0400 Respiratory rate 16 /min Dr. Sharif Christianson Work Phone: [facility] Work Phone: 03-25-2022 15:17-0400 SaO2% (BldA) [Mass fraction] 95 % Dr. Sharif Christianson Work Phone: [facility] Work Phone: 03-25-2022 15:17-0400 Systolic blood pressure 117 mm[Hg] Dr. Sharif Christianson Work Phone: [facility] Work Phone: 03-25-2022 12:50-0400 Body mass index (BMI) [Ratio] 28.3 kg/m2 Dr. Sharif Christianson Work Phone: [facility] Work Phone: 03-25-2022 12:50-0400 Body weight 70.[address] Sharif Christianson Work Phone: [facility] Work Phone: 03-12-2022 10:36-0400 Body height 160 cm Bryce Greer MD Work Phone: [facility] 03-12-2022 10:36-0400 Body weight 74 kg Bryce Greer MD Work Phone: [facility] 03-12-2022 10:36-0400 Diastolic blood pressure 58 mm[Hg] Bryce Greer MD Work Phone: [facility] 03-12-2022 10:36-0400 Heart rate 81 /min Bryce Greer MD Work Phone: [facility] 03-12-2022 10:36-0400 SaO2% (BldA) [Mass fraction] 98 % Bryce Greer MD Work Phone: [facility] 03-12-2022 10:36-0400 Systolic blood pressure 106 mm[Hg] Bryce Greer MD Work Phone: [facility] 03-04-2022 13:49-0400 Body height 160.[address] Sharif Christianson Work Phone: [facility] Work Phone: 03-04-2022 13:39-0400 Body mass index (BMI) [Ratio] 28 kg/m2 Dr. Sharif Christianson Work Phone: [facility] Work Phone: 03-04-2022 13:39-0400 Body temperature 97.6 [degF] Dr. Sharif Christianson Work Phone: [facility] Work Phone: 03-04-2022 13:39-0400 Body weight 71.[address] Sharif Christianson Work Phone: [facility] Work Phone: 03-04-2022 13:39-0400 Diastolic blood pressure 58 mm[Hg] Dr. Sharif Christianson Work Phone: [facility] Work Phone: 03-04-2022 13:39-0400 Heart rate 88 /min Dr. Sharif Christianson Work Phone: [facility] Work Phone: 03-04-2022 13:39-0400 Respiratory rate 16 /min Dr. Sharif Christianson Work Phone: [facility] Work Phone: 03-04-2022 13:39-0400 SaO2% (BldA) [Mass fraction] 99 % Dr. Sharif Christianson Work Phone: [facility] Work Phone: 03-04-2022 13:39-0400 Systolic blood pressure 93 mm[Hg] Dr. Sharif Christianson Work Phone: [facility] Work Phone: 02-14-2022 10:53-0400 Body height 160 cm Bryce Greer MD Work Phone: [facility] 02-14-2022 10:53-0400 Body weight 72 kg Bryce Greer MD Work Phone: [facility] 02-14-2022 10:53-0400 Diastolic blood pressure 59 mm[Hg] Bryce Greer MD Work Phone: [facility] 02-14-2022 10:53-0400 Heart rate 64 /min Bryce Greer MD Work Phone: [facility] 02-14-2022 10:53-0400 Respiratory rate 16 /min Bryce Greer MD Work Phone: [facility] 02-14-2022 10:53-0400 SaO2% (BldA) [Mass fraction] 98 % Bryce Greer MD Work Phone: [facility] 02-14-2022 10:53-0400 Systolic blood pressure 107 mm[Hg] Bryce Greer MD Work Phone: [facility] 01-28-2022 10:44-0400 Body mass index (BMI) [Ratio] 27.6 kg/m2 Dr. Sharif Christianson Work Phone: [facility] Work Phone: 01-28-2022 10:44-0400 Body weight 70.[address] Sharif Christianson Work Phone: [facility] Work Phone: 01-28-2022 10:44-0400 Diastolic blood pressure 68 mm[Hg] Dr. Sharif Christianson Work Phone: [facility] Work Phone: 01-28-2022 10:44-0400 Heart rate 86 /min Dr. Sharif Christianson Work Phone: [facility] Work Phone: 01-28-2022 10:44-0400 Respiratory rate 18 /min Dr. Sharif Christianson Work Phone: [facility] Work Phone: 01-28-2022 10:44-0400 SaO2% (BldA) [Mass fraction] 95 % Dr. Sharif Christianson Work Phone: [facility] Work Phone: 01-28-2022 10:44-0400 Systolic blood pressure 133 mm[Hg] Dr. Sharif Christianson Work Phone: [facility] Work Phone: 01-22-2022 13:30-0400 Body height 160 cm [address] 1 [facility] 01-22-2022 13:30-0400 Body temperature 97.7 [degF] Pst 1 [facility] 01-22-2022 13:30-0400 Body weight 71.67 kg [address] 1 [facility] 01-22-2022 13:30-0400 Diastolic blood pressure 64 mm[Hg] Pst 1 [facility] 01-22-2022 13:30-0400 Heart rate 84 /min Pst 1 [facility] 01-22-2022 13:30-0400 Respiratory rate 14 /min Pst 1 [facility] 01-22-2022 13:30-0400 SaO2% (BldA) [Mass fraction] 99 % Pst 1 [facility] 01-22-2022 13:30-0400 Systolic blood pressure 110 mm[Hg] Pst 1 [facility] 01-15-2022 11:07-0400 Body height 160 cm Bryce Greer MD Work Phone: [facility] 01-15-2022 11:07-0400 Body weight 71.8 kg Bryce Greer MD Work Phone: [facility] 01-15-2022 11:07-0400 Diastolic blood pressure 82 mm[Hg] Bryce Greer MD Work Phone: [facility] 01-15-2022 11:07-0400 Heart rate 89 /min Bryce Greer MD Work Phone: [facility] 01-15-2022 11:07-0400 SaO2% (BldA) [Mass fraction] 98 % Bryce Greer MD Work Phone: [facility] 01-15-2022 11:07-0400 Systolic blood pressure 136 mm[Hg] Bryce Greer MD Work Phone: [facility] 12-17-2021 14:55-0400 Diastolic blood pressure 61 mm[Hg] Dr. Sharif Christianson Work Phone: [facility] Work Phone: 12-17-2021 14:55-0400 Heart rate 75 /min Dr. Sharif Christianson Work Phone: [facility] Work Phone: 12-17-2021 14:55-0400 Respiratory rate 16 /min Dr. Sharif Christianson Work Phone: [facility] Work Phone: 12-17-2021 14:55-0400 SaO2% (BldA) [Mass fraction] 95 % Dr. Sharif Christianson Work Phone: [facility] Work Phone: 12-17-2021 14:55-0400 Systolic blood pressure 107 mm[Hg] Dr. Sharif Christianson Work Phone: [facility] Work Phone: 12-17-2021 13:09-0400 Body height 160.[address] Sharif Christianson Work Phone: [facility] Work Phone: 12-17-2021 13:09-0400 Body mass index (BMI) [Ratio] 29.5 kg/m2 Dr. Sharif Christianson Work Phone: [facility] Work Phone: 12-17-2021 13:09-0400 Body temperature 98.5 [degF] Dr. Sharif Christianson Work Phone: [facility] Work Phone: 12-17-2021 13:09-0400 Body weight 75.[address] Sharif Christianson Work Phone: [facility] Work Phone: 12-05-2021 13:40-0400 Body mass index (BMI) [Ratio] 27.5 kg/m2 Dr. Sharif Christianson Work Phone: [facility] Work Phone: 12-05-2021 13:40-0400 Body temperature 98.2 [degF] Dr. Sharif Christianson Work Phone: [facility] Work Phone: 12-05-2021 13:40-0400 Body weight 70.[address] Sharif Christianson Work Phone: [facility] Work Phone: 12-05-2021 13:40-0400 Diastolic blood pressure 69 mm[Hg] Dr. Sharif Christianson Work Phone: [facility] Work Phone: 12-05-2021 13:40-0400 Heart rate 90 /min Dr. Sharif Christianson Work Phone: [facility] Work Phone: 12-05-2021 13:40-0400 Respiratory rate 16 /min Dr. Sharif Christianson Work Phone: [facility] Work Phone: 12-05-2021 13:40-0400 SaO2% (BldA) [Mass fraction] 98 % Dr. Sharif Christianson Work Phone: [facility] Work Phone: 12-05-2021 13:40-0400 Systolic blood pressure 108 mm[Hg] Dr. Sharif Christianson Work Phone: [facility] Work Phone: 12-05-2021 13:40-0400 Body mass index (BMI) [Ratio] 27.5 kg/m2 Dr. Sharif Christianson Work Phone: [facility] Work Phone: 12-05-2021 13:40-0400 Body temperature 98.2 [degF] Dr. Sharif Christianson Work Phone: [facility] Work Phone: 12-05-2021 13:40-0400 Body weight 70.[address] Sharif Christianson Work Phone: [facility] Work Phone: 12-05-2021 13:40-0400 Diastolic blood pressure 69 mm[Hg] Dr. Sharif Christianson Work Phone: [facility] Work Phone: 12-05-2021 13:40-0400 Heart rate 90 /min Dr. Sharif Christianson Work Phone: [facility] Work Phone: 12-05-2021 13:40-0400 Respiratory rate 16 /min Dr. Sharif Christianson Work Phone: [facility] Work Phone: 12-05-2021 13:40-0400 SaO2% (BldA) [Mass fraction] 98 % Dr. Sharif Christianson Work Phone: [facility] Work Phone: 12-05-2021 13:40-0400 Systolic blood pressure 108 mm[Hg] Dr. Sharif Christianson Work Phone: [facility] Work Phone: 10-27-2021 22:37-0500 Body temperature 97.9 [degF] Dr. Sharif Christianson Work Phone: [facility] Work Phone: 10-27-2021 22:37-0500 Diastolic blood pressure 101 mm[Hg] Dr. Sharif Christianson Work Phone: [facility] Work Phone: 10-27-2021 22:37-0500 Heart rate 84 /min Dr. Sharif Christianson Work Phone: [facility] Work Phone: 10-27-2021 22:37-0500 Respiratory rate 24 /min Dr. Sharif Christianson Work Phone: [facility] Work Phone: 10-27-2021 22:37-0500 SaO2% (BldA) [Mass fraction] 98 % Dr. Sharif Christianson Work Phone: [facility] Work Phone: 10-27-2021 22:37-0500 Systolic blood pressure 148 mm[Hg] Dr. Sharif Christianson Work Phone: [facility] Work Phone: 10-27-2021 20:33-0500 Body mass index (BMI) [Ratio] 31.4 kg/m2 Dr. Sharif Christianson Work Phone: [facility] Work Phone: 10-27-2021 20:33-0500 Body weight 80.[address] Sharif Christianson Work Phone: [facility] Work Phone: 10-01-2021 09:37-0500 Body mass index (BMI) [Ratio] 29.5 kg/m2 Dr. Sharif Christianson Work Phone: [facility] Work Phone: 10-01-2021 09:37-0500 Body weight 75.[address] Sharif Christianson Work Phone: [facility] Work Phone: 10-01-2021 09:37-0500 Diastolic blood pressure 80 mm[Hg] Dr. Sharif Christianson Work Phone: [facility] Work Phone: 10-01-2021 09:37-0500 Heart rate 71 /min Dr. Sharif Christianson Work Phone: [facility] Work Phone: 10-01-2021 09:37-0500 Respiratory rate 18 /min Dr. Sharif Christianson Work Phone: [facility] Work Phone: 10-01-2021 09:37-0500 Systolic blood pressure 147 mm[Hg] Dr. Sharif Christianson Work Phone: [facility] Work Phone: 09-17-2021 09:55-0500 Body mass index (BMI) [Ratio] 31.8 kg/m2 Dr. Sharif Christianson Work Phone: [facility] Work Phone: 09-17-2021 09:55-0500 Body temperature 97.7 [degF] Dr. Sharif Christianson Work Phone: [facility] Work Phone: 09-17-2021 09:55-0500 Body weight 79.[address] Sharif Christianson Work Phone: [facility] Work Phone: 09-17-2021 09:55-0500 Diastolic blood pressure 74 mm[Hg] Dr. Sharif Christianson Work Phone: [facility] Work Phone: 09-17-2021 09:55-0500 Heart rate 72 /min Dr. Sharif Christianson Work Phone: [facility] Work Phone: 09-17-2021 09:55-0500 Respiratory rate 16 /min Dr. Sharif Christianson Work Phone: [facility] Work Phone: 09-17-2021 09:55-0500 SaO2% (BldA) [Mass fraction] 98 % Dr. Sharif Christianson Work Phone: [facility] Work Phone: 09-17-2021 09:55-0500 Systolic blood pressure 122 mm[Hg] Dr. Sharif Christianson Work Phone: [facility] Work Phone: 10-02-2020 07:56-0500 Body mass index (BMI) [Ratio] 34.4 kg/m2 Dr. Sharif Christianson Work Phone: [facility] Work Phone: 12-05-2016 09:47-0400 BMI (Body Mass Index) 40.97 kg/m2 [facility] Work Phone: 12-05-2016 09:47-0400 BP Diastolic 60 mm[Hg] [facility] Work Phone: 12-05-2016 09:47-0400 BP Diastolic 64 mm[Hg] [facility] Work Phone: 12-05-2016 09:47-0400 BP Systolic 90 mm[Hg] [facility] Work Phone: 12-05-2016 09:47-0400 BP Systolic 110 mm[Hg] [facility] Work Phone: 12-05-2016 09:47-0400 Height 157.48 cm [facility] Work Phone: 12-05-2016 09:47-0400 Pulse (Heart Rate) 64 /min [facility] Work Phone: 12-05-2016 09:47-0400 Respiratory Rate 18 /min Arely Smart RN [facility] Work Phone: 12-05-2016 09:47-0400 Weight 101.61 kg Arely Smart RN [facility] Work Phone: 05-30-2016 15:20-0400 BSA (Body Surface Area) 2 m2 Arely Smart RN [facility] Work Phone: Encounters Encounter Date Encounter Type Care Provider Facility Start: 04-05-2025 ambulatory Sharif Christianson [facility] y:[facility] Start: 03-28-2025 End: 03-28-[address] Sharif Christianson MD Work Phone: -Cat Scan [facility] Start: 03-28-2025 End: 03-28-[address] Shannan Waldrop MD -Cat Scan [facility] Work Phone: Start: 03-28-2025 End: 03-28-2025 ambulatory Sharif Christianson Facility:[facility] Start: 03-15-[address] Ines Waldrop MD -[facility] Start: 03-15-2025 End: 03-15-[address] Nic Hall MD -[facility] Work Phone: Start: 03-15-2025 End: 03-15-[address] Sharif Christianson MD Work Phone: -[facility] Start: 03-08-2025 End: 03-08-[address] Sharif Christianson MD Work Phone: -Radiology [facility] Start: 03-08-2025 End: 03-08-2025 Patient encounter procedure Xenia WALKER -Radiology [facility] Work Phone: Start: 03-08-2025 End: 03-08-2025 Patient encounter procedure Xenia WALKRE -[facility] Work Phone: Start: 03-08-2025 End: 03-08-[address] Sharif Christianson MD Work Phone: -[facility] Start: 03-08-2025 End: 03-08-2025 ambulatory [facility] Liliya Christianson Facility:[facility] Start: 02-22-[address] Ines Waldrop MD -[facility] Start: 02-22-2025 End: 02-22-2025 Patient encounter procedure Sabi DAVISON -[facility] Work Phone: Start: 02-22-2025 End: 02-22-[address] Sharif Christianson MD Work Phone: -[facility] Start: 01-25-2025 End: 01-25-[address] Shannan Waldrop MD -[facility] Work Phone: Start: 01-25-2025 End: 01-25-[address] Sharif Christianson MD Work Phone: [facility] Work Phone: Start: 01-25-[address] Ines Waldrop MD -[facility] Start: 01-20-2025 End: 01-20-[address] Sharif Christianson MD Work Phone: [facility] Work Phone: Start: 01-20-2025 End: 01-20-[address] Sharif Christianson MD -[facility] Start: 01-20-2025 End: 01-20-2025 ambulatory Sharif Christianson Facility:[facility] Start: 01-04-[address] Ines Wadlrop MD -[facility] Start: 01-04-2025 End: 01-04-[address] Shannan Waldrop MD -[facility] Work Phone: Start: 01-04-2025 End: 01-04-[address] Sharif Christianson MD Work Phone: [facility] Work Phone: Start: 12-14-2024 End: 12-14-[address] Shannan Waldrop MD -[facility] Work Phone: Start: 12-14-2024 End: 12-14-2024 ambulatory Sharif Christianson Facility:[facility] Start: 11-30-2024 End: 11-30-[address] Sharif Christianson MD Work Phone: [facility] Work Phone: Start: 11-30-2024 End: 11-30-2024 Patient encounter procedure Sabi Lynn PRESS HAND-C -Cat [facility] Work Phone: Start: 11-30-2024 End: 11-30-2024 ambulatory Sharif Christianson Facility:[facility] Start: 11-23-[address] Ines Waldrop MD -[facility] Start: 11-23-2024 End: 11-23-2024 Patient encounter procedure Sabi Leah PRESS HAND-C -[facility] Work Phone: Start: 11-23-2024 End: 11-23-2024 ambulatory Sharif Christianson Facility:[facility] Start: 11-10-2024 End: 11-10-2024 Patient encounter procedure Xenia AWLKER -[facility] Work Phone: Start: 11-10-2024 End: 11-10-2024 ambulatory Sharif Christianson Facility:[facility] Start: 11-02-2024 End: 11-02-2024 Patient encounter procedure Sabi Leah PRESS HAND-C -[facility] Work Phone: Start: 11-02-2024 End: 11-02-2024 ambulatory Sharif Christianson Facility:[facility] Start: 10-12-2024 End: 10-12-[address] Shannan Waldrop MD -[facility] Work Phone: Start: 10-12-2024 End: 10-12-2024 ambulatory Sharif Christianson Facility:[facility] Start: 09-21-2024 End: 09-21-2024 Patient encounter procedure Sabi Lynn NP-Rupal -[facility] Work Phone: Start: 09-21-2024 End: 09-21-2024 ambulatory Sharif Christianson [place]: 09-20-2024 End: 09-20-[address] Sharif Christianson MD -Cardiovascular Services Work Phone: Start: 09-20-2024 End: 09-20-2024 ambulatory Sharif Christianson Facility:[facility] Start: 09-06-2024 End: 09-06-[address] Shannan Waldrop MD -[facility] Work Phone: Start: 09-06-2024 End: 09-06-2024 ambulatory Sharif Christianson [place] Start: 08-31-2024 End: 08-31-[address] Shannan Waldrop MD -Cat Scan, [facility] Work Phone: Start: 08-31-2024 End: 08-31-[address] Sharif Christianson MD -Laboratory, Specimen Work Phone: Start: 08-31-2024 End: 08-31-2024 Patient encounter procedure Ivonne Mendoza [place] -[facility] Work Phone: Start: 08-31-2024 End: 08-31-2024 ambulatory Sharif Chritsianson [place] [place]: 08-31-2024 End: 08-31-2024 ambulatory Sharif Christianson Facility:[facility] Start: 08-26-2024 End: 08-26-[address] Sharif Christianson MD -Laboratory, [facility] Start: 08-26-2024 End: 08-26-2024 ambulatory Sharif Christianson Facility:[facility] Start: 08-23-2024 ambulatory Sharif Christianson Facilit y:[facility] Start: 08-09-2024 End: 08-09-2024 Patient encounter procedure Sabi DAVISON -[facility] Work Phone: Start: 08-09-2024 End: 08-09-2024 ambulatory Sharif Christianson Facility:[facility] Start: 07-27-2024 End: 07-27-2024 ambulatory Sharif Christianson Facility:[facility] Start: 07-27-2024 End: 07-27-2024 ambulatory Sharif Christianson Facility:[facility] Start: 07-20-2024 End: 07-20-2024 ambulatory Sharif Christianson Facility:[facility] Start: 07-12-2024 End: 07-12-2024 ambulatory Sharif Christianson Facility:[facility] Start: 07-05-2024 End: 07-05-2024 ambulatory Sharif Christianson Facility:[facility] Start: 06-28-2024 End: 06-28-2024 ambulatory Sharif Christianson Facility:[facility] Start: 06-24-2024 End: 06-24-2024 ambulatory Sharif Christianson Facility:[facility] Start: 06-16-2024 ambulatory Sharif Christianson Facilit y:[facility] Start: 06-02-2024 End: 06-02-2024 ambulatory Sharif Christianson Facility:[facility] Start: 05-28-2024 End: 05-28-2024 ambulatory Sharif Christianson Facility:[facility] Start: 05-26-2024 ambulatory Sharif Christianson Facilit y:[facility] Start: 05-26-2024 End: 05-26-2024 ambulatory Sharif Christianson Facility:[facility] Start: 05-20-2024 End: 05-20-2024 ambulatory Sharif Christianson Facility:[facility] Start: 05-12-2024 End: 05-12-2024 ambulatory Sharif Christianson Facility:[facility] Start: 04-22-2024 End: 04-23-2024 ambulatory Sharif Christianson Facility:[facility] Start: 04-21-2024 End: 04-21-2024 ambulatory Sharif Christianson Facility:[facility] Start: 01-07-[address] Sharif Christianson MD Work Phone: [facility] Start: 12-18-2023 End: 12-18-[address] Sharif Christianson Work Phone: [facility] Work Phone: Start: 12-18-2023 End: 12-18-[address] Sharif Christianson Work Phone: [facility] Work Phone: Start: 12-08-2023 End: 12-08-[address] Sharif Christianson Work Phone: [facility] Work Phone: Start: 12-02-[address] Sharif Christianson Work Phone: [facility] On[facility] Start: 11-28-2023 End: 11-28-[address] Sharif Christianson Work Phone: [facility] Work Phone: Start: 11-28-2023 End: 11-28-[address] Sharif Christianson Work Phone: [facility] Work Phone: Start: 10-30-2023 End: 10-30-[address] Sharif Christianson Work Phone: [facility] Work Phone: Start: 10-06-2023 End: 10-06-[address] Sharif Christianson Work Phone: [facility] Work Phone: Start: 09-25-2023 End: 09-25-2023 ambulatory PRESS HAND-C Iris Clayton Work Phone: [facility] Work Phone: Start: 09-25-2023 End: 09-25-2023 Patient encounter procedure PRESS HAND-C Iris Clayton Work Phone: [facility] Start: 09-24-2023 End: 09-24-2023 ambulatory PRESS HAND-Rupal Clayton Work Phone: [facility] Work Phone: Start: 09-24-2023 End: 09-24-2023 Patient encounter procedure PRESS HAND-Rupal Clayton Work Phone: [facility]-Sarika Baires Start: 09-09-2023 Registered Recurring PRESS HAND-Rupal Clayton Work Phone: [facility]-Radiation Oncology Start: 09-09-2023 End: 09-09-2023 Patient encounter procedure PRESS HAND-C Iris Clayton Work Phone: [facility] Work Phone: Start: 09-08-2023 End: 09-08-2023 Patient encounter procedure PRESS HAND-Rupal Clayton Work Phone: [facility] Work Phone: Start: 09-03-2023 End: 09-03-2023 Patient encounter procedure PRESS HAND-Rupal Clayton Work Phone: [facility] Work Phone: Start: 09-01-2023 End: 09-01-2023 Patient encounter procedure PRESS HAND-Rupal Clayton Work Phone: [facility] Work Phone: Start: 08-27-2023 End: 08-27-2023 Patient encounter procedure PRESS HAND-Rupal Clayton Work Phone: [facility] Work Phone: Start: 08-25-2023 End: 08-25-2023 Patient encounter procedure PRESS HAND-Rupal Clayton Work Phone: [facility] Work Phone: Start: 08-20-2023 End: 08-20-2023 Patient encounter procedure PRESS HAND-C Iris Clayton Work Phone: [facility] Work Phone: Start: 08-19-2023 End: 08-19-2023 Patient encounter procedure PRESS HAND-C Iris Clayton Work Phone: [facility] Work Phone: Start: 08-13-2023 End: 08-13-2023 Patient encounter procedure PRESS HAND-C Iris [facility]: Start: 08-12-2023 End: 08-12-2023 Patient encounter procedure PRESS HAND-C Iris Clayton [facility] Work Phone: Start: 08-06-2023 End: 08-06-2023 Patient encounter procedure PRESS HAND-C Iris Clayton Work Phone: [facility] Work Phone: Start: 08-04-2023 End: 08-04-2023 Patient encounter procedure PRESS HAND-C Iris Clayton [facility] Work Phone: Start: 07-30-2023 End: 07-30-2023 Patient encounter procedure PRESS HAND-C Iris Clayton Work Phone: [facility] Work Phone: Start: 07-29-2023 Registered Recurring PRESS HAND-C Kendy kohli Matilde Work Phone: [facility]-Radiation Oncology Start: 07-28-2023 End: 07-28-2023 Patient encounter procedure PRESS HAND-C Iris Clayton [facility] Work Phone: Start: 07-24-2023 End: 07-24-2023 ambulatory PRESS HAND-C Irisesther Blantonhoward Work Phone: [facility] Work Phone: Start: 07-24-2023 End: 07-24-2023 Patient encounter procedure PRESS HAND-Rupal Clayton Work Phone: [facility] Work Phone: Start: 07-22-2023 Non-patient / Non-visit PRESS HAND-C Rupal Clayton Work Phone: [facility] Start: 07-22-2023 End: 07-22-2023 Admission to same day surgery center PRESS HAND-Rupal Clayton [facility] Start: 07-22-2023 End: 07-22-2023 ambulatory PRESS HAND-Rupal Clayton Work Phone: [facility] Work Phone: Start: 07-22-2023 Non-patient / Non-visit PRESS HAND-C Rupal Clayton Work Phone: [facility] Start: 07-18-2023 End: 07-18-2023 Patient encounter procedure PRESS HAND-Rupal Clayton Work Phone: [facility] Work Phone: Start: 07-17-2023 End: 07-17-2023 Patient encounter procedure PRESS HAND-Rupal Clayton Work Phone: [facility] Work Phone: Start: 07-16-2023 End: 07-16-2023 Admission to same day surgery center PRESS HAND-Rupal Clayton Work Phone: [facility]-Internal Medicine Doctor/Special Procedures Work Phone: Start: 07-15-2023 Non-patient / Non-visit PRESS HAND-Rupal Clayton Work Phone: [facility] Start: 07-15-2023 Registered Recurring PRESS HAND-Rupal Clayton Work Phone: [facility]-Radiation Oncology Start: 07-04-2023 End: 07-04-2023 Patient encounter procedure PRESS HAND-C Iris Clayton Work Phone: [facility] Work Phone: Start: 07-04-2023 End: 07-04-2023 Patient encounter procedure PRESS HAND-C Iris Clayton Work Phone: [facility] Work Phone: Start: 07-02-2023 End: 07-02-2023 Patient encounter procedure PRESS HAND-C Iris Clayton Work Phone: [facility] Work Phone: Start: 06-19-2023 End: 06-19-2023 [facility] Start: 06-14-2023 Non-patient / Non-visit PRESS HAND-C C samsonseun Clayton Work Phone: [facility] Work Phone: Start: 06-13-2023 Non-patient / Non-visit PRESS HAND-C C samsonseun Clayton Work Phone: [facility] Start: 06-12-2023 Non-patient / Non-visit PRESS HAND-C C samsonseun Clayton Work Phone: [facility] Start: 06-12-2023 Non-patient / Non-visit PRESS HAND-C C samsonseun Clayton Work Phone: [facility] Work Phone: Start: 06-11-2023 End: 06-14-2023 Evaluation and management of inpatient [facility]-Intensive Care Unit Work Phone: Start: 05-27-2023 Registered Recurring [facility] Start: 05-22-2023 ambulatory SELF SELF Facility:Nataly PURVIS Start: 05-01-2023 End: 05-01-2023 ambulatory PRESS HAND-C Iris Matilde Work Phone: [facility] Work Phone: Start: 05-01-2023 End: 05-01-2023 Patient encounter procedure PRESS HAND-Rupal Clayton Work Phone: [facility]-Cat Scan, [facility] Work Phone: Start: 04-01-2023 End: 04-01-2023 ambulatory PRESS HAND-Rupal GalarzaIrisesther Clayton Work Phone: [facility] Work Phone: Start: 04-01-2023 End: 04-01-2023 Patient encounter procedure PRESS HAND-Rupal Iris Matilde Work Phone: [facility], [facility] Work Phone: Start: 03-11-2023 End: 03-11-2023 ambulatory PRESS HAND-Rupal Iris Harvinderhoward Work Phone: [facility] Work Phone: Start: 03-11-2023 End: 03-11-2023 Patient encounter procedure PRESS HAND-Rupal Iris Matilde Work Phone: [facility]-Outpatient Breast Imaging Work Phone: Start: 01-29-2023 Registered Recurring PRESS HAND-Rupal Galarzam seun Blantonhoward Work Phone: [facility] Start: 01-29-2023 End: 01-29-2023 Patient encounter procedure PRESS HAND-Rupal GalarzaIris Matilde Work Phone: [facility] Work Phone: Start: 12-04-2022 End: 12-04-[address] Sharif Christianson Work Phone: [facility] Work Phone: Start: 12-04-2022 End: 12-04-[address] Sharif Christianson Work Phone: [facility]-Cardiovascular Services Start: 11-06-2022 End: 11-06-[address] Sharif Christianson Work Phone: [facility] Start: 10-09-2022 Non-patient / Non-visit Dr. Yessenia Christianson Work Phone: [facility] Start: 10-09-2022 End: 10-09-[address] Sharif Christianson Work Phone: [facility] Work Phone: Start: 10-09-2022 End: 10-09-[address] [facility] Start: 10-01-2022 End: 10-01-[address] Sharif Christianson Work Phone: [facility] Start: 08-13-2022 End: 08-13-[address] Sharif Christianson Work Phone: [facility] Work Phone: Start: 08-13-2022 End: 08-13-[address] Sharif Christianson Work Phone: [facility] Start: 07-30-[address] Sharif Christianson Work Phone: [facility] On[facility] Start: 07-30-2022 End: 07-30-[address] Sharif Christianson Work Phone: [facility] Cancer Care Start: 07-29-2022 End: 07-29-[address] Sharif Christianson Work Phone: [facility] Work Phone: Start: 07-29-2022 End: 07-29-[address] Sharif Christianson Work Phone: [facility] Spec[facility] Start: 06-12-2022 End: 06-12-[address] Sharif Christianson Work Phone: [facility]-Occupational Therapy Start: 06-11-2022 End: 06-11-[address] Sharif Christianson Work Phone: [facility] Work Phone: Start: 06-11-2022 End: 06-11-[address] Sharif Christianson Work Phone: [facility]-Pulmonary Services/Neurology Start: 05-30-2022 End: 05-30-[address] Sharif Christianson Work Phone: [facility] Start: 05-23-2022 End: 05-23-2022 ambulatory SHARIF CHRISTIANSON Facility:[facility] Start: 05-23-2022 End: 05-23-2022 Patient encounter procedure Bryce Greer MD Work Phone: [facility] Comment on above: Acute subdural hemat lisa (Primary Dx); Intracranial hemorrhage (HCC) Start: 05-23-2022 End: 05-23-2022 Subsequent hospital visit by physician [facility] RADIO CT SCAN WILBRAHAM SENIOR SITE MANAGER Comment on above: Intracranial hemorrh age (HCC) [I62.9] Start: 05-07-2022 End: 05-07-2022 ambulatory SHARIF CHRISTIANSON Facility:[facility] Start: 05-07-2022 End: 05-07-2022 Patient encounter procedure Bryce Greer MD Work Phone: [facility] Comment on above: Intracranial hemorrh age (HCC) (Primary Dx) Start: 05-02-[address] Sharif Christianson Work Phone: [facility] Oncology Start: 04-29-2022 End: 04-29-[address] Sharif Christianson Work Phone: [facility] Cancer Care Start: 04-23-2022 End: 04-23-2022 Emergency department patient visit Dr. Sharif Christianson Work Phone: [facility]-Emergency Department Start: 04-18-2022 End: 04-18-2022 ambulatory SHARIF CHRISTIANSON Facility:[facility] Start: 04-18-2022 End: 04-18-2022 Subsequent hospital visit by physician [facility] RADIO CT SCAN [place] SENIOR SITE MANAGER Comment on above: Subdural hemorrhage (HCC) [I62.00] Start: 04-18-2022 End: 04-18-2022 Patient encounter procedure Bryce Greer MD Work Phone: [facility] Comment on above: Intracranial hemorrh age (HCC) (Primary Dx) Start: 04-17-2022 Non-patient / Non-visit Dr. Yessenia Christianson Work Phone: [facility] Inpatient Physicians Start: 04-15-2022 Non-patient / Non-visit Dr. Yessenia Christianson Work Phone: [facility] Inpatient Physicians Start: 04-12-2022 Non-patient / Non-visit Dr. Yessenia Christianson Work Phone: [facility] Inpatient Physicians Start: 04-10-2022 Telephone encounter Bryce Greer MD Work Phone: [facility] Comment on above: Post Op Start: 04-10-2022 Non-patient / Non-visit Dr. Yessenia Christianson Work Phone: [facility] Inpatient Physicians Start: 04-09-2022 Non-patient / Non-visit Dr. Yessenia Christianson Work Phone: [facility] Inpatient Physicians Start: 04-09-2022 Telephone encounter Donna LOPEZ Comment on above: Follow Up Phone Call (Post Discharge F/U - attempt made. No answer.) Start: 04-08-2022 Non-patient / Non-visit Dr. Yessenia Christianson Work Phone: [facility] Inpatient Physicians Start: 04-05-2022 Non-patient / Non-visit Dr. Yessenia Christianson Work Phone: [facility] Inpatient Physicians Start: 04-05-2022 End: 04-17-2022 Evaluation and management of inpatient Dr. Sharif Christianson Work Phone: [facility]-Rehab Unit Start: 03-28-2022 End: 04-05-2022 Evaluation and management of inpatient GISELA LUCERO JAN Facility:[facility] Start: 03-28-2022 ambulatory Ana MALONEY RN.APPLICATIONS INTERN Work Phone: Critical Care Start: 03-28-2022 End: 03-28-2022 Emergency department patient visit Dr. [facility] Start: 03-25-[address] Sharif Christianson Work Phone: [facility] Oncology Start: 03-12-2022 End: 03-12-2022 [facility] Start: 03-12-2022 End: 03-12-2022 Patient encounter procedure Bryce Greer MD Work Phone: [facility] Comment on above: Intracranial hemorrh age (HCC) (Primary Dx) Start: 03-06-2022 End: 03-06-[address] Sharif Christianson Work Phone: [facility] Start: 03-04-[address] Sharif Christianson Work Phone: [facility] On[facility] Start: 03-04-2022 End: 03-04-[address] Sharif Christianson Work Phone: [facility] Cancer Care Start: 02-14-2022 End: 02-14-2022 ambulatory SHARIF CHRISTIANSON Facility:[facility] Start: 02-14-2022 End: 02-14-2022 Patient encounter procedure Bryce Greer MD Work Phone: [facility] Comment on above: Intracranial hemorrh age (HCC) (Primary Dx); Acquired skull defect Start: 02-07-2022 Telephone encounter Donna LOPEZ Comment on above: Follow Up Phone Call (All Clear) Start: 02-01-2022 End: 02-04-2022 Evaluation and management of inpatient BRYCE GREER Facility:[facility] Start: 01-28-2022 End: 01-28-[address] Sharif Christianson Work Phone: [facility] Start: 01-22-2022 End: 01-23-20[facility] Start: 01-22-2022 Encounter for other preprocedural examination LOAN [facility] Start: 01-22-2022 End: 01-22-2022 Admission to [facility] Start: 01-22-2022 End: 01-22-2022 ambulatory Pst 1 Pre Surgical Testing Comment on above: Preop examination; Defect of skull; Hypertension, unspecified type; Diabetes mellitus without complication (HCC); 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 Start: 01-22-2022 End: 01-22-2022 Preprocedural examination done Pst 1 Pre Surgical Testing Start: 01-17-2022 Orders Only Bryce dooley MD Work Phone: [facility] Comment on above: Skull defect (Primar y Dx) Start: 01-15-2022 End: 01-15-2022 Patient encounter procedure Bryce Greer MD Work Phone: [facility] Comment on above: Intracranial hemorrh age (HCC) (Primary Dx); Acquired skull defect Start: 01-15-2022 End: 01-15-2022 ambulatory BRYCE GREER Facility:[facility] Start: 01-15-2022 End: 01-15-2022 Subsequent hospital visit by physician [facility] RADIO CT SCAN [place] SENIOR SITE MANAGER Comment on above: Intracranial hemorrh age (HCC) [I62.9] Start: 01-09-2022 End: 01-09-[address] Sharif Christianson Work Phone: [facility] Work Phone: Start: 01-09-2022 End: 01-09-[address] Sharif Christianson Work Phone: [facility] Start: 01-09-[address] Sharif Christianson Work Phone: [facility] Start: 01-07-2022 End: 01-07-[address] Sharif Christianson Work Phone: [facility] Start: 12-18-2021 End: 12-18-2021 ambulatory BRYCE GREER Facility:[facility] Start: 12-17-[address] Sharif Christianson Work Phone: [facility] On[facility] Start: 12-13-[address] Sharif Christianson Work Phone: [facility] Start: 12-06-2021 End: 12-06-[address] Sharif Christianson Work Phone: [facility] Start: 12-05-2021 End: 12-05-[address] Sharif Christianson Work Phone: [facility] Cancer Care Start: 11-20-2021 End: 11-20-2021 ambulatory LOAN RIVAS Facility:[facility] Start: 11-10-2021 Orders Only Loan lewis PA-C Work Phone: [place] [facility] Comment on above: Intracranial hemorrh age (HCC) Start: 10-28-2021 End: 11-14-2021 Evaluation and management of inpatient REUBEN LUIS ANGEL Facility:[facility] Start: 10-27-2021 End: 10-27-2021 Emergency department patient visit Dr. Sharif Christianson Work Phone: [facility]-Emergency Department Start: 10-01-2021 End: 10-01-[address] Sharif Christianson Work Phone: [facility] Start: 09-17-2021 End: 09-17-[address] Sharif Christianson Work Phone: [facility] Start: 09-05-2021 End: 09-05-[address] Sharif Christianson Work Phone: [facility] Procedures Date Procedure Procedure Detail Performing Clinician Start: 03-28-2025 CT of thorax and abd omen with contrast Dr. Sharif Christianson MD Work Phone: Start: 03-15-[address] Sharif Christianson MD Work Phone: Start: 03-15-2025 Serum inorganic phos phate measurement Dr. Sharif Christianson MD Work Phone: Start: 03-08-2025 X-ray of lumbar spin e, two or three views Dr. Sharif Christianson MD Work Phone: Start: 02-22-[address] Sharif Christianson MD Work Phone: Start: 02-22-2025 Serum inorganic phos phate measurement Dr. Sharif Christianson MD Work Phone: Start: 01-25-[address] Sahrif Christianson MD Work Phone: Start: 01-25-2025 Serum inorganic phos phate measurement Dr. Sharif Christianson MD Work Phone: Start: 01-04-[address] Sharif Christianson MD Work Phone: Start: 01-04-2025 Serum inorganic phos phate measurement Dr. Sharif Christianson MD Work Phone: Start: 11-30-2024 CT of thorax and abd omen with contrast Dr. Sharif Christianson MD Work Phone: Start: 09-21-2024 Measurement of renal function Dr. Sharif Christianson MD Work Phone: Comment on above: GFR Calc Start: 08-31-2024 CT of thorax and abd omen with contrast Dr. Sharif Christianson MD Work Phone: Start: 06-28-2024 Vitamin D, 25-hydrox y measurement Dr. Sharif Christianson MD Work Phone: Comment on above: Vitamin D 25(OH) Sta tus Range Deficiency <20 ng/mL (50nmol/L) Insufficiency 20 - 30 ng/mL (50 - 75 nmol/L) Sufficiency 30 - 100 ng/mL (75 - 250 nmol/L) Toxicity >100 ng/mL (>250 nmol/L) Start: 12-18-2023 CT of thorax with contrast Dr. Sharif Christianson Work Phone: Start: 12-02-2023 PET study for locali zation of tumor Dr. Sharif Christianson Work Phone: Start: 11-28-2023 Plain chest X-ray Dr. Nataly Christianson Work Phone: Start: 08-19-2023 Bacteria identified in Urine by Culture Dr. Sharif Christianson MD Work Phone: Start: 08-19-2023 Urine culture BAYLEE-Rupal Clayton Work Phone: Start: 07-24-2023 MRI of brain with contrast PRESS HAND-Rupal Clayton Work Phone: Start: 07-22-2023 Radiographic procedu re of chest PRESS HAND-Rupal Clayton Work Phone: Start: 07-22-2023 Implantation to cardiovascular system LANEY Clayton Work Phone: Start: 07-22-2023 Fluoroscopic guidance N P-Rpual Clayton Work Phone: Start: 06-11-2023 CT angiography of ch est with contrast Start: 06-11-2023 CT of head without contrast Start: 06-11-2023 Plain chest X-ray Start: 06-11-2023 SARS-CoV-2 & FLU Ant igen (Rapid) Start: 06-11-2023 Viral antigen assay PRESS HAND- Rupal Clayton Work Phone: Start: 05-27-2023 Positron emission tomography with computed tomography Start: 05-01-2023 Plain chest X-ray PRESS HAND-Rupal Clayton Work Phone: Start: 05-01-2023 Plain chest X-ray PRESS HAND-Rupal Clayton Work Phone: Start: 05-01-2023 Biopsy/Inj or Needle Placement PRESS HAND-Rupal Clayton Work Phone: Start: 04-01-2023 CT of chest without contrast PRESS HAND-Rupal Clayton Work Phone: Start: 03-11-2023 Screening mammography N P-Rupal Clayton Work Phone: Start: 04-23-2022 CT of head without contrast Dr. Sharif Christianson Work Phone: Start: 04-12-2022 Diagnostic radiograp hy of abdomen Dr. Sharif Christianson Work Phone: Start: 03-28-2022 Antibody screen LOAN RIVAS Comment on above: Order Comment: Speci men Type: BLOOD SPECIMENOrdering Facility: [facility] Address: [address] [place], [place] [id number] Performed By: #### T SCR ####[facility] [id number] [place] [address] [place] Start: 03-28-2022 CT angiography of head Dr. Sharif Christianson Work Phone: Start: 03-28-2022 CT of head without contrast Dr. Sharif Christianson Work Phone: Start: 03-06-2022 Screening mammography Kb Christianson Work Phone: Start: 07-20-2022 CT of chest without contrast Dr. Sharif Christianson Work Phone: Start: 02-01-2022 H/O: surgery History of cranioplasty Donna Morales RN Start: 01-15-2022 Ct head/brain w/o co ntrast material Kacy Glez RN [employer] INTER[employer] Work Phone: Start: 10-28-2021 Antibody screen LOAN RIVAS Comment on above: Order Comment: Speci men Type: BLOOD SPECIMENOrdering Facility: [facility] Address: [address] [place], [place] [id number] Performed By: #### T SCR ####[facility] [id number] [place] [address] [facility] Start: 10-27-2021 CT cervical spine wi thout contrast Dr. Sharif Christianson Work Phone: Start: 10-27-2021 CT of head without contrast Dr. Sharif Christianson Work Phone: Start: 09-05-2021 CT of chest without contrast Dr. Sharif Christianson Work Phone: Start: 06-11-2021 Allergen spec ige cr ude allergen extract each Dr. Sharif Christianson MD Work Phone: Start: 07-14-2018 Colonoscopy Loan cassidy PA-C Work Phone: Start: 12-30-2016 End: 12-30-2016 Urinalysis Arely Smart RN Start: 12-05-2016 End: 12-05-2016 Dietary management education, guidance, and counseling Arely Smart RN Start: 12-05-2016 End: 12-30-2016 *Hepatic Function Panel Kevin Womack Start: 12-05-2016 End: 12-30-2016 Lipid panel [AGGREGATE] Kevin Womack Start: 05-30-2016 End: 05-30-2016 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 Leticia Euceda SERVICER-C Start: 05-30-2016 End: 05-30-2016 Follow Up Appt 6 months Leticia Euceda SERVICER -C Start: 10-18-2015 End: 12-30-2016 *Hepatic Function Panel Kevin Womack Start: 10-18-2015 End: 05-20-2016 Follow Up Appt 6 months Kevin Womack Start: 10-18-2015 End: 12-30-2016 Lipid panel [AGGREGATE] Kevin Womack Start: 10-18-2015 End: 05-20-2016 MMM Eder Davis MD Start: 10-17-2015 Placement of stent i n coronary artery Status post cardiac stent placement Arely Smart RN Start: 10-10-2015 History of placement of stent for coronary artery disease History of coronary artery stent placement Ivonne WALKER Comment on above: TLD-QCZ-Wjzpar LCx w / 3.0 x 12 mm Promus Premier Stent 10/10/15 Bacteria identified in Urine by Culture Dr. Sharif Christianson Work Phone: Urine culture Dr. Sharif moreno Work Phone: Urine culture Dr. Sharif moreno Work Phone: Viral antigen assay Dr. Sharif Christianson Work Phone: Plan of Treatment Date Care Activity Detail Author Start: 03-28-2025 Following clinical pathway protocol [facility] Start: 03-15-2025 [facility] Start: 03-15-2025 Serum inorganic phosphate measurement [facility] Start: 03-15-2025 Thyroid stimulating hormone measurement [facility] Start: 02-22-2025 [facility] Start: 01-25-2025 [facility] Start: 01-04-2025 [facility] Start: 11-30-2024 Venous catheter care management [facility] Start: 11-22-2024 DIABETES SCREEN DIABETES SCREEN [facility] Start: 11-10-2024 DIABETES SCREEN DIABETES SCREEN [facility] Start: 08-31-2024 Venous catheter care management [facility] Start: 12-18-2023 Venous catheter care management [facility] Start: 12-02-2023 PET study for localization of tumor PET/CT Tumor Base -Thigh Subs [facility] Start: 12-02-2023 PT Unspecified body region [facility] Start: 10-30-2023 Vital signs measurements [facility] Start: 10-09-2023 Vital signs measurements [facility] Start: 07-28-2023 Venous catheter care management [facility] Start: 07-24-2023 Venous catheter care management [facility] Start: 07-22-2023 Anesthesia access central venous circulation ANESTH VASCULAR ACCESS [facility] Start: 07-22-2023 Insj tunneled ctr vad w/subq port age 4 yr/> INSERT TUNNELED CV CATH [facility] Start: 07-22-2023 Patient discharge [facility] Start: 07-17-2023 Patient referral [facility] Work Phone: Start: 07-16-2023 Patient discharge [facility] Start: 07-04-2023 Evaluation of diagnostic study results [facility] Start: 06-19-2023 Blood chemistry [facility] Start: 06-18-2023 Blood chemistry [facility] Start: 06-17-2023 Blood chemistry [facility] Start: 06-16-2023 Blood chemistry [facility] Start: 06-15-2023 Blood chemistry [facility] Start: 06-14-2023 Patient discharge [facility] Start: 06-14-2023 [facility] Start: 06-13-2023 Patient referral [facility] Work Phone: Start: 06-13-2023 Referral to occupational therapist [facility] Start: 06-13-2023 Referral to service [facility] Start: 06-11-2023 Following clinical pathway protocol [facility] Start: 06-11-2023 Assessment of risk of venous thromboembolism [facility] Start: 06-11-2023 Care regimes management [facility] Start: 06-11-2023 Catheterization of vein [facility] Start: 06-11-2023 Insertion of catheter into peripheral vein [facility] Start: 06-11-2023 Measuring intake and output [facility] Start: 06-11-2023 Notification of physician [facility] Start: 06-11-2023 Oxygen therapy [facility] Start: 06-11-2023 Providing care according to standard [facility] Start: 06-11-2023 Provision of activity privileges [facility] Start: 06-11-2023 Referral to material chaser [facility] Start: 06-11-2023 Tobacco use cessation education [facility] Start: 06-11-2023 Electrocardiographic procedure [facility] Start: 06-11-2023 Verification routine [facility] Start: 06-11-2023 Admission procedure [facility] Start: 06-11-2023 Hospital admission, emergency, from emergency room, medical nature [facility] Start: 06-11-2023 Troponin I measurement [facility] Start: 06-11-2023 End: 06-11-2023 [facility] Start: 05-23-2023 BP CONTROLLED (<130/80) BP CONTROLLED (<130/80) [facility] Start: 05-07-2023 BP CONTROLLED (<130/80) BP CONTROLLED (<130/80) [facility] Start: 05-01-2023 CORE NDL BX LNG/MED PERQ CORE NDL BX LNG/MED PERQ [facility] Start: 05-01-2023 Following clinical pathway protocol [facility] Start: 05-01-2023 Catheterization of vein [facility] Start: 05-01-2023 Oxygen therapy [facility] Start: 05-01-2023 Patient discharge [facility] Start: 05-01-2023 Vital signs measurements [facility] Start: 04-18-2023 BP CONTROLLED (<130/80) BP CONTROLLED (<130/80) [facility] Start: 03-12-2023 BP CONTROLLED (<130/80) BP CONTROLLED (<130/80) [facility] Start: 02-14-2023 BP CONTROLLED (<130/80) BP CONTROLLED (<130/80) [facility] Start: 01-22-2023 BP CONTROLLED (<130/80) BP CONTROLLED (<130/80) [facility] Start: 10-28-2022 Influenza vaccination LUNG CANCER SCREENING [facility] Start: 05-18-2022 Hemoglobin A1c/Hemoglobin.total in Blood HBA1C [facility] Start: 04-18-2022 Influenza vaccination [facility] Start: 04-17-2022 Patient discharge [facility] Work Phone: Start: 04-10-2022 Following clinical pathway protocol [facility] Work Phone: Start: 04-09-2022 End: 04-09-2022 [facility] Work Phone: Start: 04-09-2022 Introduction of urinary catheter [facility] Work Phone: Start: 04-09-2022 Following clinical pathway protocol [facility] Work Phone: Start: 04-09-2022 Catheterization of vein [facility] Work Phone: Start: 04-05-2022 [facility] Work Phone: Start: 04-05-2022 Application of intermittent pneumatic compression device [facility] Work Phone: Start: 04-05-2022 Urinary bladder training [facility] Work Phone: Start: 04-05-2022 Referral to service [facility] Work Phone: Start: 04-05-2022 Admission procedure [facility] Work Phone: Start: 04-05-2022 Patient referral to dietitian [facility] Work Phone: Start: 04-05-2022 Referral to occupational therapist [facility] Work Phone: Start: 04-05-2022 Verification routine [facility] Work Phone: Start: 04-05-2022 Vital signs measurements [facility] Work Phone: Start: 04-05-2022 End: 04-05-2022 [facility] Work Phone: Start: 04-05-2022 Incentive spirometry [facility] Work Phone: Start: 04-05-2022 Speech therapy assessment [facility] Work Phone: Start: 03-28-2022 Aspiration precautions [facility] Work Phone: Start: 02-01-2022 End: 01-15-2023 Choriogonadotropin ( test) [Presence] in Urine HCG QUAL UR Lab Routine Intracranial hemorrhage (HCC) Acquired skull defect Expected: 02/01/2022, Expires: 01/15/2023 [facility] Work Phone: Comment on above: Expected: 02/01/2022, Expires: 3 Start: 01-30-2022 End: 01-15-2023 SARS-CoV-2 (COVID-19) RNA [Presence] in Respiratory specimen by NADEEM with probe detection PRE-PROCEDURE & PRE-OPERATIVE COVID Microbiology Routine Intracranial hemorrhage (HCC) Acquired skull defect Expected: 01/30/2022, Expires: 01/15/2023 [facility] Work Phone: Comment on above: Expected: 01/30/2022, Expires: 3 Start: 01-25-2022 End: 01-15-2023 aPTT in Platelet poor plasma by Coagulation assay ACTIVATED PTT Lab Routine Intracranial hemorrhage (HCC) Acquired skull defect Expected: 01/25/2022, Expires: 01/15/2023 [facility] Work Phone: Comment on above: Expected: 01/25/2022, Expires: 3 Start: 01-25-2022 End: 01-15-2023 Basic metabolic 2000 panel - Serum or Plasma BASIC METABOLIC PNL Lab Routine Intracranial hemorrhage (HCC) Acquired skull defect Expected: 01/25/2022, Expires: 01/15/2023 [facility] Work Phone: Comment on above: Expected: 01/25/2022, Expires: 3 Start: 01-25-2022 End: 01-15-2023 CBC panel - Blood by Automated count CBC Lab Routine Intracranial hemorrhage (HCC) Acquired skull defect Expected: 01/25/2022, Expires: 01/15/2023 [facility] Work Phone: Comment on above: Expected: 01/25/2022, Expires: 3 Start: 01-25-2022 End: 01-15-2023 PT panel - Platelet poor plasma by Coagulation assay PROTHROMBIN TIME/PT Lab Routine Intracranial hemorrhage (HCC) Acquired skull defect Expected: 01/25/2022, Expires: 01/15/2023 [facility] Work Phone: Comment on above: Expected: 01/25/2022, Expires: 3 Start: 10-15-2021 COVID-19 VACCINE (5 - Booster for Moderna series) COVID-19 VACCINE (5 - Booster for Moderna series) [facility] Start: 08-18-2021 ADVANCE DIRECTIVE DISCUSSION ADVANCE DIRECTIVE DISCUSSION [facility] Start: 08-18-2021 DEPRESSION ASSESSMENT DEPRESSION ASSESSMENT [facility] Start: 04-18-2021 Influenza vaccination INFLUENZA (#1) [facility] Start: 10-10-2020 LIPID SCREEN LIPID SCREEN [facility] Start: 01-01-2020 BONE DENSITY BONE DENSITY [facility] Start: 01-01-2020 PNEUMOVAX AGE 65 AND OVER WITH 5YR LOOKBACK (#1) PNEUMOVAX AGE 65 AND OVER WITH 5YR LOOKBACK (#1) [facility] Start: 07-14-2019 Colonoscopy COLONOSCOPY [facility] Start: 07-14-2019 COLORECTAL CANCER SCREENING COLORECTAL CANCER SCREENING [facility] Start: 12-30-2017 Hepatitis B surface antibody level LDL CHOLESTEROL [facility] Start: 07-02-2017 End: 01-04-2017 *Hepatic Function Panel *Hepatic Function Panel [facility] Work Phone: Start: 07-02-2017 End: 01-04-2017 Lipid panel [AGGREGATE] *Lipid Profile CC PCP [facility] Work Phone: Start: 06-06-2017 End: 06-06-2017 Appointment Appointment [facility] Work Phone: Start: 06-06-2017 End: 06-06-2017 Appointment Appointment [facility] Work Phone: Start: 12-05-2016 End: 12-30-2016 *Hepatic Function Panel *Hepatic Function Panel [facility] Work Phone: Start: 12-05-2016 End: 12-05-2016 Follow Up Appt 6 months Follow Up Appt 6 months [facility] Work Phone: Start: 12-05-2016 End: 12-30-2016 Lipid panel [AGGREGATE] *Lipid Profile CC PCP [facility] Work Phone: Start: 12-05-2016 End: 12-05-2016 MMM MMM [facility] Work Phone: Start: 10-10-2016 Hepatitis B surface antibody level LDL CHOLESTEROL [facility] Start: 05-30-2016 End: 05-30-2016 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 [facility] Work Phone: Start: 05-30-2016 End: 05-30-2016 Follow Up Appt 6 months Follow Up Appt 6 months [facility] Work Phone: Start: 10-18-2015 End: 12-30-2016 *Hepatic Function Panel *Hepatic Function Panel [facility] Work Phone: Start: 10-18-2015 End: 05-20-2016 Follow Up Appt 6 months Follow Up Appt 6 months [facility] Work Phone: Start: 10-18-2015 End: 12-30-2016 Lipid panel [AGGREGATE] *Lipid Profile CC PCP [facility] Work Phone: Start: 10-18-2015 End: 05-20-2016 MMM MMM [facility] Work Phone: Start: 2004 SHINGRIX VACCINE (1 of 2) SHINGRIX VACCINE (1 of 2) [facility] Start: 01-01-2000 COLOGUARD (FIT-DNA) COLOGUARD (FIT-DNA) [facility] Start: 01-01-2000 Colonoscopy COLONOSCOPY [facility] Start: 01-01-2000 COLORECTAL CANCER SCREENING COLORECTAL CANCER SCREENING [facility] Start: 01-01-[address] COLONOGRAPHY [facility] Start: 01-01-2000 FECAL OCCULT BLOOD FECAL OCCULT BLOOD [facility] Start: 01-01-2000 SIGMOIDOSCOPY SIGMOIDOSCOPY [facility] Start: 1994 Mammography MAMMOGRAM [facility] Start: 1973 Urine microalbumin profile DTAP,TDAP,TD (1 - Tdap) [facility] Start: 1972 ANNUAL PCP TEAM CHRONIC DISEASE VISIT ANNUAL PCP TEAM CHRONIC DISEASE VISIT [facility] Start: 1972 HEPATITIS C SCREENING HEPATITIS C SCREENING [facility] Start: 1966 Adult depression screening assessment DEPRESSION SCREENING [facility] Start: 1964 3 comp foot exam [facility] Start: 1964 Hepatitis B screening URINE ALBUMIN:CREATININE RATIO [facility] Start: 1964 Hepatitis C antibody, confirmatory test DILATED RETINAL EXAM [facility] Start: 1960 PNEUMOCOCCAL: 65+ (1 - PCV) PNEUMOCOCCAL: 65+ (1 - PCV) [facility] Alanine aminotransfe rase [Enzymatic activity/volume] in Serum or Plasma [facility] Albumin [Mass/volume ] in Serum or Plasma [facility] Alkaline phosphatase [Enzymatic activity/volume] in Serum or Plasma [facility] Anion gap in Serum or Plasma [facility] Bilirubin, total measurement [facility] BUN/Creatinine ratio [facility] Calcium [Mass/volume ] in Serum or Plasma [facility] Carbon dioxide, tota l [Moles/volume] in Central venous blood [facility] Catheterization of left heart [facility] CBC W Auto Different ial panel - Blood [facility] Work Phone: CBC W Auto Different ial panel - Blood [facility] CBC W Auto Different ial panel - Blood [facility] CBC W Auto Different ial panel - Blood [facility] Creatinine [Mass/vol ume] in Serum or Plasma [facility] End: 04-18-2022 CT BRAIN WO IVCON [facility] Work Phone: Comment on above: 1 Occurrences starting 04/18/2022 until 04/18/2022 End: 06-06-2023 CT BRAIN WO IVCON CT BRAIN WO IVCON Radiology Routine Intracranial hemorrhage (HCC) 1 Occurrences starting 05/07/2022 until 06/06/2023 [facility] Work Phone: Comment on above: 1 Occurrences starting 05/07/2022 until 06/06/2023 End: 05-23-2022 CT BRAIN WO IVCON [facility] Work Phone: Comment on above: 1 Occurrences starting 05/23/2022 until 05/23/2022 CT Chest and Abdomen W contrast IV [facility] End: 12-10-2022 Ct head/brain w/o contrast material CT BRAIN WO [facility] Radiology Routine Intracranial hemorrhage (HCC) 1 Occurrences starting 11/10/2021 until 12/10/2022 [facility] Work Phone: Comment on above: 1 Occurrences starting 11/10/2021 until 12/10/2022 CT of abdominal aort a with contrast [facility] End: 01-15-2023 ECG COMPLETE ECG COMPLETE ECG Routine Intracranial hemorrhage (HCC) Acquired skull defect 1 Occurrences starting 01/15/2022 until 01/15/2023 [facility] Work Phone: Comment on above: 1 Occurrences starting 01/15/2022 until 01/15/2023 Erythrocyte mean cor puscular volume determination [facility] Erythrocyte mean cor puscular volume determination [facility] Ferritin [Mass/volum e] in Serum or Plasma [facility] Work Phone: Ferritin [Mass/volum e] in Serum or Plasma [facility] Ferritin [Mass/volum e] in Serum or Plasma [facility] Glucose [Mass/volume ] in Serum or Plasma [facility] H&P for surgery H&P FOR SURGERY Procedures Routine Intracranial hemorrhage (HCC) Acquired skull defect Ordered: 01/15/2022 [facility] Work Phone: Comment on above: Ordered: 01/15/2022 Hematocrit [Volume F raction] of Blood [facility] Hematocrit [Volume F raction] of Blood [facility] Hemoglobin [Mass/vol ume] in Blood [facility] Hemoglobin [Mass/vol ume] in Blood [facility] Iron and Iron bindin g capacity panel - Serum or Plasma [facility] Work Phone: Iron and Iron bindin g capacity panel - Serum or Plasma [facility] Iron and Iron bindin g capacity panel - Serum or Plasma [facility] Leukocytes [#/volume ] in Blood [facility] Leukocytes [#/volume ] in Blood [facility] Magnesium [Mass/volu me] in Serum or Plasma [facility] Magnesium measurement [facility] Mean corpuscular hem oglobin concentration determination [facility] Mean corpuscular hem oglobin concentration determination [facility] Mean corpuscular hem oglobin determination [facility] Mean corpuscular hem oglobin determination [facility] Measurement of renal function [facility] MR Brain WO and W contrast IV [facility] Neutrophil count [facility] Neutrophil count [facility] Neutrophil percent differential count [facility] Neutrophil percent differential count [facility] Patient Education [facility] [employer] Work Phone: Patient referral [facility] Work Phone: Platelets [#/volume] in Blood [facility] Platelets [#/volume] in Blood [facility] Potassium measurement [facility] PT Unspecified body region W [facility] Red blood cell count [facility] Red blood cell count [facility] Red cell distributio n width determination [facility] Red cell distributio n width determination [facility] Serum chloride measurement [facility] Serum inorganic phos phate measurement [facility] Sodium measurement [facility] T4 free measurement [facility] Total protein measurement [facility] Urea nitrogen [Mass/ volume] in Serum or Plasma [facility] Urinalysis complete panel - Urine [facility] XR Lumbar spine 2 or 3 Views [facility] Immunizations Immunization Date Immunization Notes Care Provider Fa cility 08-20-2021 Covid (Moderna) Dr. Sharif Mcnamara inner Work Phone: [facility] 12-28-2020 Richardid (Moderna) Dr. Sharif brasher Work Phone: [facility] 11-30-2020 Covid (Moderna) Dr. Sharif brasher Work Phone: [facility] Payers Date Payer Category Payer Self-pay [id number] 2020 Medicare [employer] [place] MEDIC[place] [id number] 2020-Present [phone] [address] [place] [address] O [id number]. [id number] 2020 Medicare [id number] 2020 Medicare [id number]. 1.13.159.2.7.3. [id number] 1955 Unknown [id number] 2.16.840.1.507891.3.579.2.594 Unknown [id number] Unknown [id number] Unknown 1.2.840.882483. 1.13.159.2.7.3. 806387.315 Unknown [id number] Unknown [id number] 2.16.840.1.583879.3.579.2.462 Unknown [id number] 2.16.840.1.118639.3.579.2.462 Unknown [id number] 2.16.840.1.354461.3.579.2.462 Unknown [id number] 2.16.840.1.790871.3.579.2.462 Unknown [id number] 2.16.840.1.526250.3.579.2.462 Unknown [id number] 2.16.840.1.516893.3.579.2.462 Unknown [id number] 2.16.840.1.090925.3.579.2.462 Unknown [id number] 2.16.840.1.225654.3.579.2.462 Unknown [id number] 2.16.840.1.004632.3.579.2.462 Unknown [id number] 2.16.840.1.902521.3.579.2.462 Unknown [id number] 2.16.840.1.110311.3.579.2.462 Unknown [id number] 2.16.840.1.859723.3.579.2.462 Unknown [id number] 2.16.840.1.622220.3.579.2.462 Unknown [id number] 2.16.840.1.807548.3.579.2.462 Unknown [id number] 2.840.1.156825.3.579.2.462 Unknown [id number] 2.16.840.1.164551.3.579.2.462 Unknown [id number] 2.16.840.1.148983.3.579.2.462 Unknown [id number] 2.16.840.1.861879.3.579.2.462 Unknown [id number] 2.16.840.1.655564.3.579.2.462 Unknown [id number] 2.16.840.1.274474.3.579.2.462 Unknown [id number] 2.16.840.1.772221.3.579.2.462 Unknown [id number] 2.16.840.1.169972.3.579.2.462 Unknown [id number] 2.16.840.1.543624.3.579.2.462 Unknown [id number] 2.16.840.1.790474.3.579.2.462 Unknown [id number] 2.16.840.1.477095.3.579.2.462 Unknown [id number] 2.16.840.1.175033.3.579.2.462 Unknown [id number] 2.16.840.1.735550.3.579.2.462 Unknown [id number] 2.16.840.1.001043.3.579.2.462 Unknown [id number] 2.16.840.1.395323.3.579.2.462 Unknown [id number] 2.16.840.1.861791.3.579.2.462 Unknown [id number] 2.16.840.1.312784.3.579.2.462 Unknown [id number] 2.16.840.1.270873.3.579.2.462 Unknown [id number] 2.16.840.1.785205.3.579.2.462 Unknown [id number] 2.16.840.1.154826.3.579.2.462 Unknown [id number] 2.16.840.1.238945.3.579.2.462 Unknown [id number] 2.16.840.1.408692.3.579.2.462 Unknown [id number] 2.16.840.1.872460.3.579.2.462 Unknown [id number] 2.16.840.1.076876.3.579.2.462 Unknown [id number] 2.16.840.1.296208.3.579.2.462 Unknown [id number] 2.16.840.1.201892.3.579.2.462 Unknown [id number] 2.16.840.1.068966.3.579.2.462 Unknown [id number] 2.16.840.1.239137.3.579.2.462 Social History Date Type Detail Facility Start: 01-22-2022 End: 04-18-2022 Tobacco smoking status SCIS Smokes tobacco daily [facility] Work Phone: History of tobacco use Cigarette Smoker [facility] Work Phone: Start: 01-23-2021 End: 05-23-2022 Alcohol intake Current drinker of alcohol (finding) [facility] Start: 10-08-2019 End: 04-01-2022 History SDOH Alcohol Frequency 2 [facility] Start: 10-08-2019 Tobacco Comment using patch tr lauren to quit 6 cigs daily [facility] Start: 1955 Sex Assigned At Not on file C [facility] Start: 10-18-2021 End: 05-23-2022 Exposure to SARS-CoV-2 (event) Not sure [facility] Start: 12-13-2021 End: 10-06-2023 Tobacco smoking status NHIS Unknown if ever smoked [facility] Start: 09-27-[address] [facility] Start: 1955 Sex Assigned At Female W [facility] Start: 01-22-2022 End: 04-18-2022 Cigarettes smoked current (pack per day) - Reported 1 [facility] Start: 01-22-2022 End: 04-18-2022 Tobacco use and exposure Smokeless tobacco non-user [facility] Work Phone: Start: 04-01-2022 History SDOH Financial 5 [facility] Start: 04-01-2022 History SDOH Food Worry 1 [facility] Start: 04-18-2022 Tobacco Comment Currently usin g nicotine patches [facility] Start: 05-26-2024 Tobacco smoking status NHIS Ex-smoker (finding) [facility] Start: 12-03-2024 Sex Female (finding) [facility] NEGATED: Highlighted row [facility] Medical Equipment Procedure Code Equipment Code Equipment Origin al Text Equipment Identifier Dates Insertion, vascular access port ([id number]) Vascular port/catheter [id number] FDA Start: 07-22-[address] us Bovine Collagen Matrix 3x3in Soft Tissue Patch - [id number] Start: 10-28-[address] us Bovine Collagen Matrix 3x3in Soft Tissue Patch - [id number] Start: 10-28-[address] us Bovine Collagen Matrix 2x2in Soft Tissue Patch - [id number] Start: 10-28-2021 Agent Avitene Co llagen Hemostatic Microfibrillar Flour Sterile Latex Free 1 - [id number] Start: 10-28-2021 Ffc-Ba-L-Kind Im plant - [id number] Start: 02-01-2022 Cover [place] Craniofacial .6mm 10mm Dome Latex Free Nonsterile - [id number] Start: 02-01-2022 Cover [place] Craniofacial 14mmx.6mm Dome Nonsterile - [id number] Start: 02-01-2022 Screw Bone Unive rsal Neuro 3 4mm 1.5mm Self Drill Axial Stability Latex - [id number] Start: 02-01-2022 Cover [place] Craniofacial 14mmx.6mm Dome Nonsterile - [id number] Start: 03-28-2022 Comment on above: Description: Wavemar k interface issue. Screw Bone Unive rsal Neuro 3 4mm 1.5mm Self Drill Axial Stability Latex - [id number] Start: 03-28-2022 Comment on above: Description: WaveMar k interface issue. Goals Date Patient Goal Desired Activity /State Functional Status Date Assessment Result Facility 06-14-2023 Functional status Ambulates;Up ad kelly [facility] Work Phone: 04-17-2022 Functional status Activity Abili ty Standby Assist [facility] Work Phone: 04-16-2022 Functional status Ambulates [facility] Work Phone: Mental Status Date Assessment Result Facility 05-19-2024 Cognitive function Voice/Name [facility] Work Phone: 10-20-2023 Cognitive function Awake;Alert;Appropriat e [facility] Work Phone: 10-08-2023 Cognitive function Arousable To Voice/Nam e [facility] Work Phone: 07-22-2023 Cognitive function Voice/Name [facility] Work Phone: 06-14-2023 Cognitive function Voice/Name [facility] Work Phone: 06-11-2023 Cognitive function Level Of Cons ciousness Awake;Alert;Appropriate;Follow s Commands [facility] Work Phone: 05-01-2023 Cognitive function Awake;Alert;Appropriat e [facility] Work Phone: 05-02-2022 Cognitive function Awake;Alert;A ppropriate;Follow s Commands [facility] Work Phone: 04-23-2022 Cognitive function Level Of Cons ciousness Awake;Alert;Appropriate;Follow s Commands [facility] Work Phone: 04-17-2022 Cognitive function Appropriate;Cooperativ e [facility] Work Phone: 04-16-2022 Cognitive function Voice/Name [facility] Work Phone: 03-28-2022 Cognitive function Level Of Cons ciousness Awake;Alert;Appropriate;Follow s Commands [facility] Work Phone: 03-25-2022 Cognitive function Voice/Name [facility] Work Phone: 12-17-2021 Cognitive function Awake;Alert;A ppropriate;Follow s Commands [facility] Work Phone: 10-22-2021 Cognitive function Arousable To Voice/Nam e [facility] Work Phone: Clinical Notes 10-21-2016 to 03-28-2025 Note Date & Type Note Facility 03-28-2025 Radiology Diagnostic study note [facility] Imaging Services [address] [place], [place] [id number] CT Chest AND Abd W/ Contrast MR#: [id number] Acct: [id number] Name: KAELYN POWERS Rep #: [id number] : 1955 F 69 From: aRciel Nunez MD PCP: Dr. Sharif Christianson MD Status: RE G CLI Study:CT Chest AND Abd W/ Contrast Date of Ex am: 03/28/25 Exam# [id number] Ordering Dr: Shannan Waldrop MD PROCEDURE: CT CHEST AND ABD W/ CONTRAST 03/28/2025 REASON FOR EXAM: F/U NSCLC IV CONTRAST ONLY TECHNIQUE: Chest and abdomen CT with intravenous contrast. Coronal and Sagittal reconstruction series were provided. One or more dose reduction techniques were used (e.g., Automated exposure control, adjustment of the mA and/or kV according to patient size, use of iterative reconstruction technique. PATIENT PREPARATION: Per protocol ORAL CONTRAST TYPE: None. CONTRAST: Isovue-300 VOLUME: 100mL RADIATION DOSE SUMMARY: CTDlvol: 19.3 mGy DLP: 1385.99 mGycm COMPARISON: Prior study dated November 30, 2024. FINDINGS: CT CHEST: Hardware: A right-sided port a catheter is in-situ with the tip in the superior vena cava. Lymph nodes: The previously seen right hilar lymph node has decreased in size. No new lymph nodes are seen. Heart and Vasculature: Coronary artery calcifications are noted. Lungs and Airways: Residual complex mass in the apical segment of the left upperlobe medially. There is evidence of bronchiectasis. Interval marked improvement in the previously seen nodular density scattered throughout both lungs. No new nodules are seen. Pleura: No pleural effusion. CT ABDOMEN: Liver: Diffuse fatty infiltration. Gallbladder: Surgically absent. Spleen: Normal size. Pancreas: Diffuse fatty atrophy. Adrenals: Unremarkable Kidneys: Normal renal sizes. No hydronephrosis. Bowel: Nonspecific bowel gas pattern Lymph nodes: Unremarkable. Vasculature: Mild diffuse atherosclerotic calcifications are noted. Peritoneum / Retroperitoneum: Questionable 1.9 cm by 2.5 cm soft tissue density overlying the right sacroiliac joint. Bones: Unremarkable. CT/CT Chest AND Abd W/ Contrast IMPRESSION: Coronary artery calcification (CAC) is is present Slight decrease in size of the mass in the medial aspect of the left lung apex. Interval marked degree of involution of the previously seen pulmonary nodules. Fatty infiltration of the liver. Questionable 2.5 cm 1.9 cm soft tissue mass in the right sacroiliac joint. Repeat CT scan of the abdomen and pelvis recommended for further evaluation. Reading Location: [facility] CC: Dr. Sharif Christianson MD; Dr. Shannan Waldrop MD ~ Dynamometer Tuner: Signed [facility] 03-09-2025 Radiology Diagnostic study note [facility] Imaging Services [address] [place] [address] Lumbar Spine 2 or 3 Views MR#: [id number] Acct: [id number] Name: KAELYN POWERS Rep #: [id number] : 1955 F 69 From: Fernando Johnson MD PCP: Dr. Sharif Christianson MD Status: RE G CLI Study:Lumbar Spine 2 or 3 Views Date of Exam: 03/08/25 Exam# [id number] Ordering Dr: Suleiman Gilliland PROCEDURE: LUMBAR SPINE 2 OR 3 VIEWS 03/08/2025 REASON FOR EXAM: CLAUDICATION, LOW BACK PAIN TECHNIQUE: LUMBAR SPINE 2 OR 3 VIEWS FINDINGS: No evidence of acute fracture or dislocation. Moderate degenerative changes of the visualized spine. Grade 1 retrolisthesis of L2 on L3. [id number] lower lumbar facet arthropathy. RAD/Lumbar Spine 2 or 3 Views IMPRESSION: Spondylosis. Spondylolisthesis. Reading Location: [facility] CC: DENISE Miranda; Dr. 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: Signed [facility] 01-04-2025 Progress note [facility] 01-04-2025 Progress note Note Date/Time January 04, 2025 1:47pm [facility] [address] [place] [address] OFFICE VISIT Date of Service: 01/04/25 1313 MR#: [id number] Acct: [id number] Name: KAELYN POWERS Rep #: [id number] : 1955 From: Shannan romero MD Age/Sex: 69/F Location: [facility] Status: Signed HPI Subjective Date of Service 05/20/25 Chief Complaint NSCLC on treatment History of Present Illness 69-year-old female smoker until April 2023 who was on lung cancer screening surveillance. She has a past history of excessive alcohol consumption but she has been a social drinker for the past year averaging once a month or so. April 01, 2023 CT chest: IMPRESSION: Anterior medial left upper lobe 3.5 cm irregular mass, bordering the left mediastinal margin and anterior left hilum, has significantly increased in size from March 06, 2022 suspicious for malignancy. May 01, 2023 Left upper lobe lung mass, CT-guided core biopsy: Non-small cell carcinoma, favor adenocarcinoma with mucinous differentiation. ANTIBODY / CLONE RESULT ER (6F11) negative [place] (1E2) negative AE1-3 (AE1/AE3/PCK26) positive CK7 (OV-TL12/30) positive CK8 (95lrzbN33) positive CK20 (KS20.8) negative TTF-1 (8G7G3/1) positive Napsin A (Rabbit Polyclonal) positive HepPar (OCh1E5) positive, focal RCC (PN-15) negative CK5-6 (D5 & 1684) negative P40 (BC28) negative May 27, 2023 PET/CT staging: IMPRESSION: 1. ABNORMAL EXAMINATION INDICATIVE OF MALIGNANT VIABLE NEOPLASM. 2. Increased radiopharmaceutical concentration defined in the left hemithorax pulmonary parenchyma, left upper lobe fulfills quantitative criteria for malignant transformation. June 11, [address]: IMPRESSION: Age-related and postsurgical changes of the brain. July 24, 2023 brain MRI staging: CONCLUSION: Postsurgical changes. Mild encephalomalacia in the left temporal lobe. No evidence of metastatic disease. May 2023: Patient was seen at [facility] by thoracic surgery Dr. Green and was tentatively scheduled to have definitive surgical resection however she developed acute COVID infection and acute myocardial infarction in the same month and was felt to be a medically high surgical risk and therefore advised nonsurgical treatment. December 02, 2023 PET/CT: IMPRESSION: 1. Increased radiopharmaceutical concentration both redefined and newly apparent in the left hemithorax pulmonary parenchyma continue to fulfill quantitative criteria for viable neoplasm with single point technique. Histopathologic analysis is recommended.? 2. Overall, compared to the prior FDG-PET CT study dated 05/27/2023, persistent increased uptake both redefined and newly apparent in the left upper lung zone fulfills quantitative criteria for viable neoplasm. December 18, 2023 CT chest: IMPRESSION: Interval decrease in size of the previously seen mass lesion in the left upper lobe with findings suggestive of a radiation pneumonitis and/or scarring in the left upper lobe. Progressive increase in size and numbers of the pulmonary nodules at the right lung base. Scattered nodules in the left lower lobe. January 16, 2024 Right lung mass, CT guided core biopsy: Atypical epithelial cells highly suspicious for malignancy. February 11, 2024 Right lower lobe lung mas, CT guided core biopsy: Non-small cell carcinoma, favor well differentiated adenocarcinoma with mucinousdifferentiation April 01, 2024 brain MRI: IMPRESSION: 1. Redemonstration of bilateral frontal parietal craniotomy defects and cortical plate screw constructs from prior surgical intervention 2. No focal infiltrative or parenchymal mass or enhancing lesions of the brain parenchyma. 3. Redemonstration of diffuse thickening and enhancement of the dura likely due to postsurgical thickening and postinflammatory change rather than dural carcinomatosis 4. No demonstrated meningeal enhancement 5. No extra-axial fluid collection or midline shift is present 6. Redemonstration of ovoid plaque-like configuration of the right signal abnormality in the periventricular white matter extending up to the centrum semiovale of the bilateral cerebral hemispheres which can be seen with multiple sclerosis. Atypical chronic ischemic change may also have this presentation as well as connective tissue disorders, lupus, and sarcoid. 7. No visualized skull lesions 8. Redemonstration of post infarct encephalomalacia and gliosis in the anterior aspect of the left temporal lobe Next generation sequence ([facility] lab) on biopsies from 2022 and 2023 insufficient for molecular testing. PD-L1 by IHC on biopsies from 2022 and 2023+30%. May 28, 2024 CT Chest and abdomen with contrast: IMPRESSION: 1. Significant progression and newly developed numerous metastatic nodules throughout both lungs August 31, 2024 CT chest and abdomen: IMPRESSION: There has been an increase in size and number of the previously seen bilateral pulmonary nodules in keeping with metastatic disease. Persistent post radiation fibrosis in the left upper lobe. Mild increased size of the nodular density in the medial superior aspect of the left upper lobe abutting the mediastinum. November 30, 2024 CT chest and abdomen: ADDENDUM by Dr. Leticia Hayes MD on 12/06/24 at 1449 Following the initial interpretation, exams 08/31/2024 and prior have been made available and comparison requested. In the chest, the dominant irregular masslike opacity in the subpleural/paramediastinal LEFT upper lobe has enlarged, 3.7 x 3.3 cm compared with 2.1 x 2.5 cm when measured with similar technique, suspicious. Adjacent irregular opacities are slightly increased. Findings suspicious for locally increased disease although a component of superimposed pneumonia and/or progressive postradiation changes are also possible. Otherwise, mixed findings including enlarging and decreasing nodules and irregular nodular opacities some of which are difficult to measure as they may reflect confluent adjacent nodules. RIGHT lower lobe irregular nodular opacity measuring 2.6 x 1.8 cm is slightly decreased from 3.4 x 2.2 cm. Dominant LEFT lower lobe irregular nodular opacity has probably also decreased slightly. Additional index RIGHT lower lobe irregular nodular opacity which may reflect confluence of multiple nodules measuring 3.8 x 1.3 cm, decreased from 5.0 x 2.2 cm previously. Several small nodules in the LEFT lung apex have probably increased minimally in size, now 4 mm, previously 3 mm (series 6 image 25). Superior segment LEFT lower lobe nodule measuring 7 x 8 mm has decreased from 9 x 11 mm (series 6 image 37). Final index LEFT lower lobe nodule on series 6, image 72 measures 2.0 x 1.5 cm, decreased from 2.2 x 2.1 cm. In the abdomen/pelvis, top-normal caliber of the CBD is similar. Treatment summary and response: * Definitive concomitant chemo radiation with weekly CarboTaxol July 28, 2023-September 01, 2023. 6000 cGy delivered in 30 fractions to the primary left upper lobe lung disease as well as somewhat concerning adjacent mediastinal adenopathy. She wastreated with a VMAT plan using 6 MV photons. Date of First Treatment: 07/28/2023 Date of Last Treatment: 09/09/2023 * Adjuvant CarboTaxol 10/09?2023 (2 cycles): Partial remission then rapid relapse in less than 6 months. * Second line therapy Alimta February?April 2024: Progressive disease * Third line therapy with single agent gemcitabine (combination with nivolumab was denied by insurance): June 2024?August 2024 had excessive bone marrow toxicity, dose reduction and treatment delays: Progressive disease * Fourth line systemic therapy with pembrolizumab September 21, 2024. [facility], [facility] Medical History Encounter for antineoplastic immunotherapy At high risk for deep venous thrombosis Localized swelling of both lower legs Headache Hypomagnesemia CINV (chemotherapy-induced nausea and vomiting) Viral URI Drug induced neutropenia B12 deficiency anemia Constipation Encounter for chemotherapy management Encounter for education Arthritis Low iron High cholesterol Injury of head and neck GERD (gastroesophageal reflux disease) Former smoker History of Holter monitoring History of heart attack Cancer of upper lobe of left lung Urinary incontinence Subdural hematoma Subdural hemorrhage Abnormal gastrointestinal PET scan Wears glasses Wears dentures Cancer Marijuana use Bladder disease Anemia Back pain Dietary restriction Smoker Hoarseness Leg cramps History of edema History of echocardiogram History of stress test Cardiology follow-up encounter Adenomatous polyps Diverticulosis Gastritis Iron deficiency anemia due to chronic blood loss Lung mass Rheumatoid arthritis Black tarry stools Fatigue Iron deficiency anemia Claudication Obesity Atherosclerosis of coronary artery of [place] heart without angina pectoris Essential (primary) hypertension Peripheral vascular occlusive disease Type 2 diabetes mellitus Nicotine dependence Rectal bleeding Hyperlipidemia Anxiety Surgical History History of cardiac catheterization S/P craniotomy S/P craniotomy Hx of heart artery stent History of esophagogastroduodenoscopy (EGD) Hx of colonoscopy History of angioplasty of peripheral vessel History of left heart catheterization (10/09/15) History of coronary artery stent placement (10/10/15) History of hysterectomy History of cholecystectomy Family History Sister Diabetes Breast cancer Brother Cancer throat Hypertension Social History household members: none and other details: She has 2 sons who live locally and can help her and also has 2 sisters housing: apartment number of children: 2 current occupational status: employed 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 mary beth/jainism: Gnosticism seatbelt use: always do you feel safe at home: Yes ROS ROS Narrative I feel great this past 2 weeks Constitutional Constitutional: Reports systems reviewed and no addt'l complaints, except as documented; Denies fatigue, fever(s) or weight loss Eyes Eyes: Reports systems reviewed and no addt'l complaints, except as documented; Denies change in vision ENT HEENT: Denies headache(s), mouth lesions, nasal congestion, nasal discharge or post nasal drip Cardiovascular Cardiovascular: Reports systems reviewed and no addt'l complaints, except as documented; Denies chest pain with activity or edema Respiratory/Chest Respiratory/Chest: Reports systems reviewed and no addt'l complaints, except as documented, cough, dyspnea on exertion and other Details: Exertional dyspnea is chronic unchanged ; Denies hemoptysis Gastrointestinal Gastrointestinal: Reports systems reviewed and no addt'l complaints, except as documented, anorexia and constipation; Denies abdominal pain, change in bowel habits, hematochezia, melena or nausea Genitourinary Genitourinary: Reports systems reviewed and no addt'l complaints, except as documented and urinary frequency; Denies dysuria or hematuria Musculoskeletal Musculoskeletal: Reports systems reviewed and no addt'l complaints, except as documented and arthralgias Integumentary Integumentary: Reports systems reviewed and no addt'l complaints, except as documented; Denies new lesions Neurologic Neurologic: Reports systems reviewed and no addt'l complaints, except as documented and paresthesias RLE and LLE; Denies focal weakness or frequent falls Psychiatric Psychiatric: Reports systems reviewed and no addt'l complaints, except as documented Endocrine Endocrinology: Reports systems reviewed and no addt'l complaints, except as documented Hematologic/Lymphatic Hematologic/Lymphatic: Reports systems reviewed and no addt'l complaints, exceptas documented; Denies lymphadenopathy Allergic/Immunologic Allergic/Immunologic: Reports systems reviewed and no addt'l complaints, except as documented Intake Vital Signs 12/14/24 10:41 01/04/25 13:14 01/04/25 13:16 Height 5 ft 1 in 5 ft 1 in 5 ft 1 in Weight: 82.214 kg 84.141 kg BMI 34.2 35.0 BP 128/73 H 114/69 Blood Pressure Location Lt brachial Lt brachial Position Sitting Sitting Respiration 16 16 Pulse 69 64 Pulse Source Monitor Monitor Temp 96.6 F L 97.2 F L Temperature Source Temporal Artery Temporal Artery Pulse Oximetry (%) 96 94 Oxygen Delivery Method room air room air Intake Is patient in pain?: No Allergies oxycodone (From Percocet) Allergy (Intermediate, Verified 01/04/25 13:15) Itching Medications ?Medication ?Instructions ?Recorded ?Confirmed ?Type oxybutynin chloride 15 mg 15 mg PO DAILY bladder 10/0101/04/25 History tablet,extended release 24 hr metformin 1,000 mg tablet 1,000 mg PO BID dm 10/01/22 01/04/25 History bupropion HCl 150 mg tablet,12 hr 150 mg PO Q12H 06/1101/04/25 History sustained-release ondansetron 8 mg disintegrating 8 mg PO Q8H PRN nausea and 06/02/24 01/04/25 Rx tablet vomiting #30 tabs lisinopril 5 mg tablet 5 mg PO QDAY 08/31/24 History metoprolol tartrate 25 mg tablet 25 mg PO QDAY 5 01/04/25 History Disability Placard #1 ea 09/07/24 01/04/25 Rx atorvastatin 40 mg tablet 20 mg PO QHS 10/12/24 History lidocaine-prilocaine 2.5 %-2.5 % 1 applic topical ONCE PRN port 11/02/24 01/04/25 Rx topical cream access 30 days #30 grams omeprazole 20 mg tablet,delayed 20 mg PO QDAY 12/14/24 01/04/25 History release pembrolizumab 25 mg/mL intravenous 200 mg (8 mL) .Rout e .COMPLEX #8 mL 12/30/24 01/04/25 Rx solution Have you fallen in the past year?: No Central Venous Access Central Venous Access: Yes Port/PICC: Port CBC January 04, 2025 reviewed in EMR, chemistry panel is pending will be reviewed once final Exam Physical Exam Narrative ECOG 1 Const alert, oriented x3 and no apparent distress General Appearance: cooperative and comfortable Nutritional Appearance: obese HEENT Face and Sinus: normal facial exam Mouth: No thrush Teeth and Gingiva: dentures Eyes General Eye: normal appearance of both eyes Neck no lymphadenopathy and no JVD Chest Chest: vascular access Resp clear to auscultation bilaterally Auscultation: diminished lung sounds bilateral and diffuse Cardio regular rate and regular rhythm Jugular Venous Distention: Negative for JVD GI soft to palpation, non-tender and non-distended; Negative for hepatosplenomegaly Back/Spine no thoracic nor lumbar tenderness Extremity no clubbing, cyanosis or edema Skin no rashes or lesions noted Neuro oriented x3, CN's II-XII intact bilaterally, moves all extremities and no focal motor deficits Coordination / Balance: rumlpw-at-wtkl test normal Speech: speech normal Gait (Neuro): normal gait Coding Level of Care Code Off vis,est,level 4 Exam Problem Focused Diagnoses Cancer of upper lobe of left lung C34.12 Assessment and Plan Assessment and Plan (1) Cancer of upper lobe of left lung: Status: Acute Plan 68-year-old female who first presented with clinical stage at least IB (T2a, N0/1, M0) non-small cell lung cancer, adenocarcinoma of the left upper lobe. Metastatic disease in hilar lymph nodes could not be pathologically definitivelyruled out.. Patient is medically inoperable because of acute myocardial infarction May 2023. Received combined modality therapy with concomitant chemoradiation with intent to cure July 2023?August 2023 followed by consolidation chemotherapy with carboplatin Taxol 2 cycles September through October 2023. She is not a candidate for immune therapy with PD-1 inhibitor because of significant autoimmune disease (rheumatoid arthritis) Restaging by PET CT at conclusion of definitive treatment in November 2023 shows some residual uptake in the left upper lobe and left hilum albeit all within theradiation field and a little less then pretreatment PET. However, patient has bilateral lower lobes nodules that are not PET avid on November [address]-guided right lower lobe nodule biopsy in December 2023 showed atypical cells highly suspicious for malignancy. Repeat biopsy in January 2024 confirmed recurrent metastatic non-small cell lung cancer, adenocarcinoma. Upstaged to stage IV with metastasis to the contralateral lung. Next generation sequence ([facility] lab) on biopsies from 2022 and 2023 insufficient for molecular testing. PD-L1 by IHC on biopsies from 2022 and 2023+30%. Received second line systemic therapy with Alimta for metastatic disease February?April 2024. Treatment tolerated with no grade 3 or 4 toxicities. However she had relentless progression of metastatic disease in the lungs. Received third line systemic therapy with single agent gemcitabine June 2024?August 2024. Combination gemcitabine was PD-L1 inhibitor was denied by insurance even though patient was willing to take the risk of relapse of her rheumatoid disease. Had excessive bone marrow toxicities despite dose reductionand treatment delays and by August 2024 had definitive progression of metastatic disease in the lungs. Of note that throughout the course of her systemic therapy for cancer her rheumatoid disease has remained in a good remission off any immune modulating therapy. Started fourth line systemic therapy with pembrolizumab September 21, 2024 tolerated with no grade 3 or 4 side effects or notable flare of her rheumatoid. She has a grade 1 itchy rash on the back manageable with tvjq-dkv-lehifks hydrocortisone twice daily. Anorexia and nausea seem to be more related to Trulicity rather than immunotherapy. Imaging November 30, 2024 shows a mixed response (see summary under HPI); since there are no new lesions at this possible pseudo progression of some lesions. Chronic comorbid conditions: Diabetes, hypertension, dyslipidemia, coronary artery disease, rheumatoid arthritis, diverticular disease, peripheral vascular disease history of recurrent UTIs and renal calculus disease, B12 deficiency anemia. Plan: Based on NCCN guidelines: 1. Continue with single agent PD-L1 inhibitor. Further systemic chemotherapy with single agent Taxotere can be considered in the future specially after he chemotherapy rest. 2. Refered to palliative. 3. Continue long-term B12 supplements subcu for B12 deficiency anemia. Patient was seen with a close friend, impression and plan discussed. Shannan Waldrop MD Client Services Associate, [facility] Divisions of Medical Oncology & Hematology Department of Internal Medicine [place] [phone] This note was generated using a voice recognition system software. Although itwas reviewed by the author prior to finalization, it may still contain incorrectwords, spelling, and punctuation that were not noted when reviewing prior to saving. If a clinically significant typo or inaccurately typed phrase is noted, please notify the author. . Clinical Quality Measures Falls Risk Screening/Assistive Devices Have you fallen in the past year?: No 01/04/25 1347 <Electronically signed by Shannan chand MD> Date _ Shannan Waldrop MD Cosign Signature: Date (if applicable) CC: ~ [facility] Work Phone: 1(491) 952-185004-29-2025 Evaluation note* Diagnosis Onset Date Resolution Status Admit Date 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 December 14, 2024 9:43am 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 January 04, 2025 1 2:19pm Hypothyroidism acute January 25, 2025 12:36pm 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 January 25, 2025 12:36pm 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 January 162024 12:36pm Dizziness on standing acute Feb 10:09am Encounter for antineoplastic immunotherapy acute February 22, 2025 1 0:09am Hypothyroidism acute February 22, 2025 10:09am 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 February 22, 2025 1 0:09am 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 February 222024 10:09am Claudication acute March 08, 2 025 10:02am Encounter for antineoplastic immunotherapy acute March 15, 2025 10:40am Hypothyroidism acute March 15, 2025 10:40am 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 March 15, 2025 10:40am 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 February 162024 10:40am [facility] Work Phone: 1(901) 700-901604-15-2025 Radiology Diagnostic study note [facility] Imaging Services [address] [place], [place] [address] CT Chest AND Abd W/ Contrast MR#: [id number] Acct: [id number] Name: KAELYN POWERS Rep #: [id number] : 1955 F 68 From: Yoko Hayes MD PCP: Dr. Sharif Christianson MD Status: RE G CLI Study:CT Chest AND Abd W/ Contrast Date of Ex am: 11/30/24 Exam# [id number] Ordering Dr: Sabi Olivares NP PRESS HAND-C PROCEDURE: CT CHEST AND ABD W/ CONTRAST 11/30/2024 REASON FOR EXAM: MNSCLC; ASSESS RESPONSE TO TREATMENT TECHNIQUE: CT chest and abdomen was performed with IV contrast. Multiplanar reformats weregenerated. One or more dose reduction techniques were used (e.g., Automated exposure control, adjustment of the mA and/or kV according to patient size, use of iterative reconstruction technique. PATIENT PREPARATION: Per protocol ORAL CONTRAST TYPE: None. CONTRAST: Isovue-300 VOLUME: 96mL RADIATION DOSE SUMMARY: CTDlvol: 15.2+ 17.24+ 24.68 mGy DLP: 1314.12 mGycm COMPARISON: None. FINDINGS: Moderate motion limitation through the mid to lower abdomen. Heart/pericardium: Top-normal heart size. Severe three-vessel coronary atherosclerosis and/or stents. Mild aortic annular calcification. Aorta: Overall mild/moderate atherosclerosis. Prominent atherosclerosis and mild/moderate focal stenosis at the origin of the brachiocephalic artery.. Pulmonary arteries: Enlarged, which may indicate pulmonary arterial hypertension.. Lymph nodes: Mildly prominent but subcentimeter mediastinal and RIGHT hilar nodes. Ill-defined softtissue thickening extending from the RIGHT upper lobe suprahilar region as below the RIGHT hilum without discrete or measurablehilar node. Lungs/pleura: Dominant irregular masslike opacity in the subpleural/paramediastinal LEFT upper lobedifficult to measure, roughly 5.2 x 7.0 cm containing areas of air bronchograms, extending into the apex and suprahilar region asabove. Trace surrounding ground-glass. This also abuts the superior aspect of the oblique fissure. Numerous additional bilateral pulmonary nodules throughout all lobes. Largest discrete nodule on the RIGHT is posterior subpleural in the lower lobe and measures 2.6 x 1.8 cm (image 77). Largest on the LEFT is also irregular in the LEFT lower lobe and measures 2.6 x 1.8 cm (image 59). Additional areas were nodules appear to potentially become confluent are present, most notably also within the RIGHTlower lobe on image 67). Airways: Unremarkable. Chest wall: Partially imaged RIGHT chest wall port/catheter with tip near the superior cavoatrial junction. Liver: En's lobe. Spleen: Unremarkable. Gallbladder: Gallbladder not identified; likely cholecystectomy, however there are no visible surgical clips. Top-normal caliber of the CBD at 7-8 mm, likely post cholecystectomy effect. Pancreas: Atrophic. Adrenals: Unremarkable. Kidneys: Punctate nonobstructing intrarenal calculus on the LEFT.. Visualized bowel: Mildly fluid and gas dilated small bowel loops up to 3.2 cm within the visualizedupper abdomen. No definite transition point within the vubkz-cg-rwou. Lymph nodes: Unremarkable. Vasculature: Advanced diffuse atherosclerosis. Likely at least yedcpqhq-zi-mzmbfh stenoses at the origins of the celiac and SMA, not well evaluated. Likely severe stenosis along the LEFT common iliac artery proximally. Suspect RIGHT LZEXM-xceonsx-sjlx-LEFT renal artery stenoses, not well evaluated. Peritoneum: Unremarkable. Body Wall: Unremarkable. Musculoskeletal: Multilevel spondylosis.. Old LEFT rib fracture. Trace lumbar levoscoliosis may be positional. CT/CT Chest AND Abd W/ Contrast IMPRESSION: 1. Findings within the upper abdomen which may reflect small bowel ileus howeverearly or mild obstruction cannot be excluded given the pelvis was not imaged. Correlate with bowel function and consider CT abdomen and pelvis as indicated. 2. 5.2 cm irregular masslike mostly solid opacity in the LEFT upper lobe extending into the apex and suprahilar region, presumably reflecting the site of patient's reported primary malignancy. Numerous bilateral pulmonary nodules up to 2.6 cm suspicious for intrapulmonary metastasis. Recommend clinical/oncologic follow- up. Given trace surrounding ground-glass surrounding the dominant LEFT apical masslike opacity, correlate for clinical evidence of postobstructive pneumonia. 3. Motion limitation through the abdomen, without definite evidence of intra- abdominal metastatic disease. 4. Additional description as above. Reading Location: [id number] CC: LANEY Lynn; Dr. 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: Signed [facility]04-08-2025 Evaluation note* Diagnosis Onset Date Resolution Status Admit Date Encounter for antineoplastic immunotherapy acute November 23, 2024 8:36am 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 November 23, 2024 8:36am 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 December 14, 2024 9:43am 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 January 04, 2025 1 2:19pm Hypothyroidism acute January 25, 2025 12:36pm 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 January 25, 2025 12:36pm 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 January 162024 12:36pm Dizziness on standing acute Feb 10:09am Encounter for antineoplastic immunotherapy acute February 22, 2025 1 0:09am Hypothyroidism acute February 22, 2025 10:09am 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 February 22, 2025 1 0:09am 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 February 222024 10:09am Claudication acute March 08, 025 10:02am [facility] Work Phone: 1(564) 322-972303-26-2025 Evaluation note* Diagnosis Onset Date Resolution Status Admit Date Carotid artery disease acute [facility] 2024 12:49pm Peripheral arterial disease acute November 10, 2024 12:49pm Varicose veins of both legs with edema acute November 10, 2024 12:49pm Encounter for antineoplastic immunotherapy acute November 23, 2024 8:36am 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 November 23, 2024 8:36am 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 December 14, 2024 9:43am 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 January 04, 2025 1 2:19pm Hypothyroidism acute January 25, 2025 12:36pm 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 January 25, 2025 12:36pm 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 January 162024 12:36pm Dizziness on standing acute Feb 10:09am Encounter for antineoplastic immunotherapy acute February 22, 2025 1 0:09am Hypothyroidism acute February 22, 2025 10:09am 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 February 22, 2025 1 0:09am 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 February 222024 10:09am [facility] Work Phone: 1(167) 899-362603-18-2025 Evaluation note* Diagnosis Onset Date Resolution Status Admit Date 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 November 02, 2024 9:39am Carotid artery disease acute [facility] 2024 12:49pm Peripheral arterial disease acute November 10, 2024 12:49pm Varicose veins of both legs with edema acute November 10, 2024 12:49pm Encounter for antineoplastic immunotherapy acute November 23, 2024 8:36am 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 November 23, 2024 8:36am 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 December 14, 2024 9:43am 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 January 04, 2025 1 2:19pm Hypothyroidism acute January 25, 2025 12:36pm 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 January 25, 2025 12:36pm 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 January 162024 12:36pm Encounter for antineoplastic immunotherapy acute February 22, 2025 1 0:09am Hypothyroidism acute February 22, 2025 10:09am 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 February 22, 2025 1 0:09am 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 February 222024 10:09am [place] [employer] [facility] Work Phone: 1([phone]) 688-284202-25-2025 Evaluation note* Diagnosis Onset Date Resolution Status Admit Date Cancer of upper lobe of left lung acute October 12 025 9:43am Cancer of upper lobe of left lung acute November 02, 2024 9:39am Carotid artery disease acute [facility] 2024 12:49pm Peripheral arterial disease acute November 10, 2024 12:49pm Varicose veins of both legs with edema acute November 10, 2024 12:49pm Cancer of upper lobe of left lung acute November 23, 2024 8:36am Encounter for antineoplastic immunotherapy acute November 23, 2024 8:36am Cancer of upper lobe of left lung acute December 14, 2024 9:43am Cancer of upper lobe of left lung acute January 04, 2025 1 2:19pm Cancer of upper lobe of left lung acute January 25, 2025 12:36pm [place] [employer] Work Phone: 1([phone]) 813-225302-25-2025 Evaluation note* Diagnosis Onset Date Resolution Status Admit Date 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 October 12, 025 9:43am 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 November 02, 2024 9:39am Carotid artery disease acute [facility] 2024 12:49pm Peripheral arterial disease acute November 10, 2024 12:49pm Varicose veins of both legs with edema acute November 10, 2024 12:49pm Encounter for antineoplastic immunotherapy acute November 23, 2024 8:36am 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 November 23, 2024 8:36am 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 December 14, 2024 9:43am 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 January 04, 2025 1 2:19pm Hypothyroidism acute January 25, 2025 12:36pm 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 January 25, 2025 12:36pm 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 January 162024 12:36pm [facility] Work Phone: 1([phone]) 458-240701-20-2025 Evaluation note* Diagnosis Onset Date Resolution Status Admit Date Cancer of upper lobe of left lung acute September 06 2:02pm Cancer of upper lobe of left lung acute September 21 7:26am Encounter for antineoplastic immunotherapy acute September 21 7:26am Cancer of upper lobe of left lung acute October 12 9:43am Cancer of upper lobe of left lung acute November 02, 2024 9:39am Carotid artery disease acute [facility] 2024 12:49pm Peripheral arterial disease acute November 10, 2024 12:49pm Varicose veins of both legs with edema acute November 10, 2024 12:49pm Cancer of upper lobe of left lung acute November 23, 2024 8:36am Encounter for antineoplastic immunotherapy acute November 23, 2024 8:36am Cancer of upper lobe of left lung acute December 14, 2024 9:43am Cancer of upper lobe of left lung acute January 04, 2025 1 2:19pm [facility] Work Phone: 1([phone]) 450-881812-23-2024 Evaluation note* Diagnosis Onset Date Resolution Status Admit Date Cancer of upper lobe of left lung acute August 09 9:39am Drug induced neutropenia acute August 09, 2024 9:39am Encounter for chemotherapy management acute August 09 9:39am Hypomagnesemia acute July 192023 9:39am Localized swelling of both lower legs acute August 09 9:39am B12 deficiency anemia chronic Jul emb2023 9:39am Essential (primary) hypertension acute August 31 8:03am History of coronary artery stent placement October 10, 2015 acute August 8:03am Claudication resolved August 8:03am Cancer of upper lobe of left lung acute September 06 2:02pm Cancer of upper lobe of left lung acute September 21 7:26am Encounter for antineoplastic immunotherapy acute September 21 7:26am Cancer of upper lobe of left lung acute October 12, 025 9:43am Cancer of upper lobe of left lung acute November 02, 2024 9:39am Carotid artery disease acute [facility] 2024 12:49pm Peripheral arterial disease acute November 10, 2024 12:49pm Varicose veins of both legs with edema acute November 10, 2024 12:49pm Cancer of upper lobe of left lung acute November 23, 2024 8:36am Encounter for antineoplastic immunotherapy acute November 23, 2024 8:36am [facility] Work Phone: 1([phone]) 882-244010-09-2024 [facility]12-05-2023 Procedure [facility]11-06-2023 NoteHNO ID: [id number] Author: John Green MD, PhD Service: ? Author Type: Physician Type: Progress Notes Filed: 06/23/2023 3:00 PM Note Text: [facility] STAFF PHYSICIAN NOTE OF PERSONAL INVOLVEMENT IN CARE I have reviewed the documentation obtained and documented by the Resident and I have personally performed a face to face assessment of the patient and have personally participated in the morillo components of the visit which includes medical decision making.. I have discussed the case and management of the patient's care. I wish to add the following findings which have been dictated and will be communicated back to the requesting physician. STAFF PHYSICIAN: John Green MD, PhD DATE [facility]: [facility] NoteHNO ID: [id number] Author: John Green MD, PhD Service: Thoracic Surgery Author Type: Physician Type: Progress Notes Filed: 07/09/2023 12:12 PM Note Text: [place] [address] [place] DEPARTMENT OF THORACIC AND CARDIOVASCULAR SURGERY NAME: KAELYN POWERS [facility] #: [id number] DATE: 06/19/2023 AGE: 67 PHYSICIAN: John Green M.D., Ph.D. I had the sincere pleasure of seeing the patient with the family in my Thoracic Surgery Clinic. This very pleasant and unfortunate 67-year-old woman, appears to have been simultaneously diagnosed with lung cancer, COVID pneumonia, and ischemic heart disease. The 3 of these processes have conspired to place her into a hospital. She first started feeling bad a few weeks ago and developed some chest pain as well as some confusion. She was ultimately taken into a hospital through an emergency room portal and diagnosed with COVID, but at the same time, was noted to have VT, which was likely an NSTEMI. The patient had been followed for a left pulmonary nodule, which has been increasing in size and was diagnosed as non-small cell lung cancer with adenocarcinoma histology. The cancer itself is locally advanced and is likely a T2 N1 lesion with direct involvement of hilar lymph nodes based on the several radiographic studies that I have independently reviewed (PET scan and chest CT scan.) The patient is currently on dual antiplatelet therapy and did have a subdural hematoma evacuated just a few months ago. All of these issues are conspiring to remove surgery as a mainstay of therapy for her lung cancer given that of her problems that she currently has, heart disease would take precedence with her resolving COVID pneumonia close behind. My sense is that she will need her heart sorted out and almost certainly cardiac catheterization is in her near future. She has multiple prior stents in place and there is the real possibility that she will need an additional interventional cardiology procedure and this may very well be a stent. Because of this, the time to treatment for this diagnosed cancer is extending and it will soon advance from the thorax into her system and I would suggest moving towards definitive chemo, radio, and immunotherapy as soon as possible as directed by her improvement of her current COVID pneumonia and palliation of her ischemic heart disease. John Green M.D., Ph.D. SM:[id number] /[id number] [facility] 06-19-2023 NoteHNO ID: [id number] Author: John Green MD, PhD Service: ? Author Type: Physician Type: Progress Notes Filed: 06/23/2023 3:00 PM Note Text: [facility] THORACIC SURGERY OUTPATIENT CONSULT NOTE Kaelyn Powers [id number] Requesting Provider: Pinky Winter MD Thoracic Physician: John Green MD Chief Complaint: Lung cancer Impression: 67 yo former 50 pack year smoker F with CAD/VT (ASA+Plavix), SDH s/p crainotomy and evacuation, PAD (cannot walk 10 feet without stopping), EtOH use, who presents with a biopsy proven [id number] NSCLC of the left upper lobe by PET scan. FEV1 100%. DLCO 128%. 6MWT 54.8% Extremely high cardiovascular risk for lobectomy. Poor functional status given CAD, imbalance from SDH, and PAD. Plan: Refer to radiation oncology and oncology for definitive chemoradiotherapy with immunotherapy as the patient's cardiovascular risk and functional status is more than likely prohibitive for anatomic lung resection. SIGNATURE: Yann Leahy MD DATE of SERVICE: 06/19/2023 TIME of SERVICE: 10:34 AM HPI: Kaelyn Powers is a 67 year old White female referred by Pinky Winter for an opinion regarding management of Lung Cancer. She is currently symptomatic. (document at least 4 of these elements) Location: left and upper Quality: no pain Severity: no pain Duration: 2 years ECOG Score: 1 67 yo former 50 pack year smoker F with CAD/VT (ASA+Plavix), SDH s/p crainotomy and evacuation, PAD (cannot walk 10 feet without stopping), EtOH use, who presents with a biopsy proven [id number] NSCLC of the left upper lobe by PET scan. This has been monitored for the last two years. However, over the last year the patient has been hospitalized for a SDH, then COVID, then a mild VT. She did not receive any coronary angioplasty for this. She has not yet seen an oncologist or radiation oncologist. FEV1 100%. DLCO 128%. 6MWT 54.8% Living arrangement: Lives with family/friend Functional status: Independent Unintentional weight loss over last 3 months: No PAST MEDICAL HISTORY Diagnosis Date Alcoholism (HCC) Anemia Arthritis Bladder infection CAD S/P percutaneous coronary angioplasty Depression Gall stones Gastritis Heart attack (HCC) 2016 stent x 1 HTN (hypertension) Hyperlipemia Kidney stones Leg pain Peripheral vascular disease (HCC) Personal history of malignant neoplasm of other parts of uterus 1983 No BSO or radiation Rheumatoid arthritis (HCC) Subdural hematoma (HCC) 10/28/2021 d/t fall requiring surgical intervention Type 2 diabetes mellitus (HCC) recent A1C 7.2 Type 2 diabetes mellitus with hyperglycemia, without long-term current use of insulin (HCC) 02/01/2022 Urethral diverticulum Uterus cancer (HCC) UTI (urinary tract infection) PAST SURGICAL HISTORY Procedure Laterality Date BLADDER SURGERY HX 10/21/2019 Cystoscopy and excision urethral diverticulum CARDIAC CATH 2016 stent x 1 CYSTOURETHROSCOPY 1998 and 1999 Cystoscopy and stone removal LAPAROSCOPY SURG CHOLECYSTECTOMY Cholecystectomy, lap at age 29 per pt PAST SURGICAL HISTORY OF Right 2017 PT STATES SHE HAD A STENT PLACED IN HER RIGHT LEG PAST SURGICAL HISTORY OF 10/28/2021 fall with subdural hematoma requiring surgical intervention TOTAL ABDOMINAL HYSTERECT W/WO RMVL TUBE OVARY ~1979 Hysterectomy, ANDREINA/partial FAMILY HISTORY Problem Relation Age of Onset Diabetes Sister hypertension, obesity Breast Cancer Sister Hypertension Brother Social History Tobacco Use Smoking status: Every Day Packs/day: 1.00 Years: 50.00 Additional pack years: 0.00 Total pack years: 50.00 Types: Cigarettes Smokeless tobacco: Never Tobacco comments: Currently using nicotine patches Vaping Use Vaping Use: Never used Substance Use Topics Alcohol use: Yes Comment: occasionally Drug use: Yes Types: Marijuana Comment: rare occassion, etibles not used since accident 0n 10-28-2021 ALLERGIES Allergen Reactions Percocet [Oxycodone* Itching Asbestos Exposure No PHYSICAL EXAM BP 119/88 Pulse (!) 58 Temp 36.9 ?C (98.5 ?F) (Oral) Resp 14 Ht 157.5 cm (5' 2) Wt 82.6 kg (182 lb) SpO2 97% BMI 33.29 kg/m? Neck: No masses and thyroid palpable Resp: Wheezes and Respiratory effort: normal Cardiovascular: Regular rate AND rhythm GI: Soft and Non-tender Neurological/Psychiatric: Oriented to time, place AND person Additional relevant findings: DATA: Radiology: PT-PET/CT Tumor Base -Thigh Init IMPORT Result Date: 06/05/2023 Images were obtained outside of [facility] I have personally reviewed the following images/data: Chest X-ray, Pathology, and PFT/screening robbie Outside Paper Medical Records Review personally performed by: Yann Leahy, [facility]11-02-2023 NoteHNO ID: [id number] Author: Malena Arias, PARENT AIDE Service: ? Author Type: Registered Resp Therapist Type: Procedures Filed: 06/19/2023 9:22 AM Note Text: RESPIRATORY THERAPY SIX MINUTE WALK TEST OXIMETRY REPORT Six Minute Walk Test for This Encounter Oxygen Device Liters FIO2 SpO2% HR Activity Feet Speed (MPH) Flag R/A 100 63 Resting R/A 100 66 Six Minute Walk 750 1.4 R/A 99 64 Recovery 1 minute post R/A 100 63 Recovery 2 minute post R/A 100 62 Recovery 3 minute post General Information Height Weight Smoking Status Pulse Oximetry Site Oximeter Pre Blood Pressure Post Blood Pressure Total Time Spent (min) 157.8 cm (5' 2.13) 82.8 kg (182 lb 9.6 oz) -- Forehead Masimo 109/50 121/51 30 _ Distance Walked (meters) Distance Walked (feet) Female Predicted Walk Distance (feet) Female Lower Limit of Normal (feet) Female % Predicted Total Duration Of The Stops (seconds) 228.6 750 1368.77 912.77 54.8 83 _ Lowest SpO2 During 6 Minute Walk Pre-Salvatore Dyspnea Rating Pre-Salvatore Fatigue Rating Post Salvatore Dyspnea Rating Post Salvatore Fatigue Rating O2 Supply Carrier Walking Assistance/Device 97 % 1 3 1 4 -- None Six Minute Walk Trend (Previous Encounters) None SIGNATURE: Malena Arias, WILLIAM PATIENT NAME: Kaelyn Powers DATE: June 19, 2023 TIME: 9:21 AM The patient completed the six minute walk test with 8 stops. Total Duration Of The Stops (seconds): 83. The patient required Room Air to complete the test. The distance the patient walked in six minutes is moderately reduced. This is the first time patient takes the six minute walk test. The patient perceived their dyspnea during the six minute walk test to be 1-Very slight on the modified Salvatore scale. The patient perceived their fatigue during the six minute walk test to be 4-Somewhat severe on the modified Salvatore scale. I have reviewed the findings and made appropriate revisions as needed. SIGNATURE: Nic Crews MD PATIENT NAME: Kaelyn Powers DATE: June 19, 2023 TIME: 9:22 [facility]11-02-2023 NoteHNO ID: [id number] Author: Malena Arias, PARENT AIDE Service: ? Author Type: Registered Resp Therapist Type: Progress Notes Filed: 06/19/2023 9:21 AM Note Text: PULM FUNCTION SMARTBLOCK: Provider: John Green MD, PhD 6 MW: [address] [place], [place] 3359810-27-2023 Progress note Author Gwendolyn Petersen [facility] June 13, 2023 2:24pm Note Date/Time June 13, 2023 8 :08am [facility] Medical Records Department [address] [place] [address] Progress Note - Hospitalist 06/13/23805 MR#: [id number] Acct: [id number] Name: KAELYN POWERS Rep #:[id number] : 1955 67 From: Gwendolyn Petersen MD PCP: LANEY Ma Status:ADM I N Location: ICU [place] [address] 4-1 Reason for Visit Reason for Visit: Diagnoses Type 2 diabetes mellitus without complications (06/11/23) Encephalopathy, unspecified (06/11/23) Non-ST elevation (NSTEMI) myocardial infarction (06/11/23) Atherosclerotic heart disease of wales coronary artery without angina pectoris (06/11/23) Peripheral vascular disease, unspecified (06/11/23) COVID-19 (06/11/23) Subjective Subjective Feeling better today, no acute complaints at this time Objective Data Objective Data Vital Signs: Vital Signs Temp Pulse Resp BP Pulse Ox O2 Del Method O2 Flow Rate 98.7 F 72 16 99/55 L 97 Nasal Cannula 2 06/13/23 07:52 06/13/23 07:52 06/13/23 07:52 06/13/23 07:52 06/13/23 07:52 06/13/23 07:52 06/13/23 07:52 Oxygen Flow Rate (L/min) 2 Oxygen Delivery Method Nasal Cannula Weight: 86 kg Body Mass Index (BMI) 34.7 Intake & Output: Intake and Output for Last 24 Hours 06/11/23 06/12/23 06/13/23 23:59 23:59 23:59 Intake Total 1953.50 / 1953.50 62.80 / 62.80 Balance 1953.50 / 1953.50 62.80 / 62.80 Lab / Micro Data 06/13/23 05:25 06/13/23 05:25 Labs: Laboratory Results - last 24 hr 06/11/23 22:58: POC Glucose 184 H 06/12/23 09:35: APTT 51.5 H 06/12/23 11:15: Troponin I High Sens 1587 H* 06/12/23 13:08: POC Glucose 173 H 06/12/23 17:17: POC Glucose 232 H 06/12/23 17:30: APTT 75.8 H 06/12/23 20:19: POC Glucose 227 H 06/13/23 00:10: APTT 70.0 H 06/13/23 05:25: WBC 4.3 L, RBC 4.18 L, Hgb 13.3, Hct 40.9, MCV 97.8, MCH 31.8, MCHC 32.5, RDW Std Deviation 49.3 H, RDW Coeff of Martha 13.7, Plt Count 172, MPV 9.1, Immature Gran % (Auto) 0.700, Neut % (Auto) 54.5, Lymph % (Auto) 26.5, Cloud% (Auto) 17.6 H, Eos % (Auto) 0.2, Baso % (Auto) 0.5, Absolute Neuts (auto) 2.3,Absolute Lymphs (auto) 1.13, Nucleated RBC % 0, Sodium 138, Potassium 3.8, Chloride 108 H, Carbon Dioxide 24.0, Anion Gap 6, BUN 10, Creatinine 0.70, EstimCreat Clear Calc 42.59, Est GFR (MDRD) Af Amer 106, Est GFR (MDRD) Non-Af 88, BUN/Creatinine Ratio 14.2, Glucose 197 H, Calcium 7.6 L Micro: Microbiology 06/11/23 15:10 Nasal Secretion SARS-CoV-2 & FLU Antigen (Rapid) - Final SARS-CoV-2 (COVID 19) Radiography Diagnostic Testing: Radiology Impression Echocardiogram 06/12/23 05:55 Interpretation Summary The study was technically difficult. The left ventricular ejection fraction is 60 %. Posterior basal and lateral basal hypokinesis. There is moderate biatrial dilatation. Ordering Physician: Nic Caraballo Performed By: Ed Cooper RCS Physical Exam Narrative General: Alert, oriented, no apparent distress HEENT: Atraumatic, normocephalic Eyes: Anicteric, normal conjunctiva, extraocular movements grossly intact Neck: Supple Respiratory: Somewhat diminished at the bases, normal respiratory effort Cardiovascular: Regular rate and rhythm GI: Soft, nontender, nondistended Extremities: No edema Musculoskeletal: Moving all extremities Neuro: No overt focal neurological deficits Skin: No rashes appreciated Psych: Cooperative Assessment & Plan Assessment/Plan (1) NSTEMI, initial episode of care: (2) COVID-19: (3) Encephalopathy acute: PLAN: Plan #Nstemi -Unclear type I vs type II -Did have chest pain and troponin 816 up trended to 848 before downtrending again to 838 -CTA on presentation no PE or dissection -Echocardiogram ordered -Patient on heparin drip -Cardiology consulted for possible intervention -06/13: Repeat troponin 1500 and echo with EF of 60% with posterior basal and lateral basal hypokinesis, patient on aspirin, Plavix, heparin drip DC'd, if patient stable tomorrow plan will be discharged with outpatient cath in 2 to 3 weeks #Type 2 diabetes mellitus -Glucose checks and sliding scale insulin -Check A1c in the a.m. #COVID-19 infection -Not hypoxic and not patient's presenting complaint or concern -Does not have indication for additional medications at this time, continue supportive care, not on O2 supplementation or having any breathing complaints -06/13: Not hypoxic, continue supportive care #Left upper lobe mass -Follows with oncology -On CT left upper lobe spiculated mass was slightly larger than on previous study at 3.9 x 2.2 -We will need follow-up oncology on DC. #DVT ppx: Heparin drip Gwendolyn Petersen MD Time spent in the patient's overall evaluation,decision-making process, review of diagnostic data, adjustment of management, discussion with other providers, nursing nursing and ancillary staff involved in patient's care documentation, 25minutes Charges/Coding Visit Charges Inpatient E&M: 51735 Subs Hosp L1 06/13/23 1424 <Electronically signed by Gwendolyn Petersen MD> Cosigner Signature (if applicable): CC: ~ Signed [facility] Work Phone: [phone]) 847-652810-27-2023 Progress note Author Gena Johnson [facility] June 13, 2023 12:52pm Note Date/Time June 13, 2023 1 2:52pm [facility] Medical Records Department [address] [place] [address] Progress Note - Cardiology 06/13/23 1248 MR#: [id number] Acct: [id number] Name: KAELYN POWERS Rep #:[id number] : 1955 67 From: Gena Johnson MD PCP: LANEY Ma Status:ADM I N Location: ICU CVICU 4-1 Subjective Subjective Denies any complaints. No chest pain. Objective Data Vital Signs: Vital Signs Temp Pulse Resp BP Pulse Ox O2 Del Method O2 Flow Rate 98.7 F 72 16 99/55 L 97 Nasal Cannula 2 06/13/23 07:52 06/13/23 07:52 06/13/23 07:52 06/13/23 07:52 06/13/23 07:52 06/13/23 08:55 06/13/23 08:55 Oxygen Flow Rate (L/min) 2 Oxygen Delivery Method Nasal Cannula Weight: 189 lb 9.561 oz Body Mass Index (BMI) 34.7 Intake & Output: Intake and Output for Last 24 Hours 06/11/23 06/12/23 06/13/23 23:59 23:59 23:59 Intake Total / 1953.50 1067.55 / 1067.55 Balance 1067.55 / 1067.55 Lab / Micro Data 06/13/23 05:25 06/13/23 05:25 Labs: Laboratory Results - last 24 hr 06/11/23 22:58: POC Glucose 184 H 06/12/23 13:08: POC Glucose 173 H 06/12/23 17:17: POC Glucose 232 H 06/12/23 17:30: APTT 75.8 H 06/12/23 20:19: POC Glucose 227 H 06/13/23 00:10: APTT 70.0 H 06/13/23 05:25: WBC 4.3 L, RBC 4.18 L, Hgb 13.3, Hct 40.9, MCV 97.8, MCH 31.8, MCHC 32.5, RDW Std Deviation 49.3 H, RDW Coeff of Martha 13.7, Plt Count 172, MPV 9.1, Immature Gran % (Auto) 0.700, Neut % (Auto) 54.5, Lymph % (Auto) 26.5, Cloud% (Auto) 17.6 H, Eos % (Auto) 0.2, Baso % (Auto) 0.5, Absolute Neuts (auto) 2.3,Absolute Lymphs (auto) 1.13, Nucleated RBC % 0, Sodium 138, Potassium 3.8, Chloride 108 H, Carbon Dioxide 24.0, Anion Gap 6, BUN 10, Creatinine 0.70, Estim Creat Clear Calc 42.59, Est GFR (MDRD) Af Amer 106, Est GFR (MDRD) Non-Af 88, BUN/Creatinine Ratio 14.2, Glucose 197 H, Calcium 7.6 L 06/13/23 07:48: POC Glucose 176 H 06/13/23 07:57: APTT 52.7 H 06/13/23 11:46: POC Glucose 274 H Cardiology Labs/Tests 06/12/23 17:30: APTT 75.8 H 06/13/23 00:10: APTT 70.0 H 06/13/23 05:25: WBC 4.3 L, RBC 4.18 L, Hgb 13.3, Hct 40.9, MCV 97.8, MCH 31.8, MCHC 32.5, Plt Count 172, MPV 9.1, Immature Gran % (Auto) 0.700, Neut % (Auto) 54.5, Lymph % (Auto) 26.5, Cloud % (Auto) 17.6 H, Eos % (Auto) 0.2, Baso % (Auto)0.5, Absolute Neuts (auto) 2.3, Nucleated RBC % 0, Sodium 138, Potassium 3.8, Chloride 108 H, Carbon Dioxide 24.0, Anion Gap 6, BUN 10, Creatinine 0.70, Est GFR (MDRD) Af Amer 106, Est GFR (MDRD) Non-Af 88, BUN/Creatinine Ratio 14.2, Glucose 197 H, Calcium 7.6 L 06/13/23 07:57: APTT 52.7 H Rhythm: EKG: ECHO: Stress Test: Cardiac Cath: PCI: CT Surgery: Holter monitor: EPS: PPM: CXR: Chest CT Scan: Radiography Diagnostic Testing: Radiology Impression Echocardiogram 06/12/23 05:55 Interpretation Summary The study was technically difficult. The left ventricular ejection fraction is 60 %. Posterior basal and lateral basal hypokinesis. There is moderate biatrial dilatation. Ordering Physician: Nic Caraballo Performed By: Ed Cooper RCS Physical Exam Const Constitutional Narrative: Appears comfortable. Respirations unlabored. Alert, oriented. Moving all 4 extremities. Assessment & Plan Assessment/Plan (1) NSTEMI, initial episode of care: PLAN: NSTEMI in the setting of COVID-19 infection. No further chest pain. LVEFnormal. Continue aspirin and Plavix. Discontinue heparin infusion. Stop Nitropaste. Start low-dose beta-blockers. (2) Coronary artery disease: PLAN: History of stent to the left circumflex in 2016. Aspirin. Plavix. Statins. (3) Diabetes: PLAN: As per internal medicine. (4) COVID-19: PLAN: As per internal medicine. (5) Peripheral arterial disease: PLAN: Aspirin and Plavix. PLAN: Plan May discharge home tomorrow morning if continues to be stable. Plan on coronaryangiography in 2 to 3 weeks. Discussed with patient. Understands and agrees with the plan. 06/13/23 1252 <Electronically signed by Gena Johnson MD> Cosigner Signature (if applicable): CC: ~ Signed [facility] Work Phone: [phone]) 894-612810-26-2023 Consult note Author Gena Johnson [facility] June 12, 2023 10:01am Note Date/Time June 12, 2023 1 0:01am [facility] Medical Records Department [address] [place] [address] Consultation - Cardiology 06/12/23 0954 MR#: [id number] Acct: [id number] Name: KAELYN POWERS Rep #:[id number] : 1955 67 From: Gena Johnson MD PCP: LANEY Ma Status:ADM I N Location: ICU CVICU20 4-1 Assessment & Plan Assessment/Plan (1) NSTEMI, initial episode of care: PLAN: NSTEMI in the setting of COVID-19 infection. Continue aspirin. Start on clopidogrel. Stop cilostazol. Check echocardiogram. Start on nitrates. Troponin elevated but no significant upward or downward trend. Will repeat. (2) Coronary artery disease: PLAN: History of stent to the left circumflex in 2016. Aspirin. Plavix. Statins. (3) Diabetes: PLAN: As per internal medicine. (4) COVID-19: PLAN: As per internal medicine. (5) Peripheral arterial disease: PLAN: Aspirin and Plavix. HPI Consult Data Date of Consult: 06/12/23 HPI Narrative Reason for Consultation: Elevated troponin HPI Narrative: This patient presented to the emergency room yesterday with fever, chills and myalgias. She tested at home and was confirmed as COVID-positive. Also had a 2- hour episode of right-sided chest discomfort yesterday. Her troponins were checked here in the hospital and these were noted to be elevated. Patient has history of coronary artery disease in the past with stent to the left circumflex in 2016. Per patient, her previous anginal symptoms were throat tightness. FORMERLY [facility], [facility] Medical History Abnormal gastrointestinal PET scan Adenomatous polyps Anemia Anxiety Atherosclerosis of coronary artery of wales heart without angina pectoris Back pain Black tarry stools Bladder disease Cancer Cardiology follow-up encounter Claudication Dietary restriction Diverticulosis Essential (primary) hypertension Fatigue Gastritis History of echocardiogram History of edema History of stress test Hoarseness Hyperlipidemia Iron deficiency anemia Iron deficiency anemia due to chronic blood loss Left upper lobe pulmonary nodule Leg cramps Lung mass Marijuana use Nicotine dependence Obesity Peripheral vascular occlusive disease Rectal bleeding Rheumatoid arthritis Smoker Subdural hematoma Subdural hemorrhage Type 2 diabetes mellitus Urinary incontinence Wears dentures Wears glasses Home Medications oxybutynin chloride 15 mg tablet,extended release 24 hr 15 mg PO DAILY bladder 10/01/21 [History Last Taken Unknown] acetaminophen 500 mg tablet 1,000 mg PO Q6H PRN Pain 04/05/22 [History Last Taken Unknown] metformin 1,000 mg tablet 1,000 mg PO BID dm 10/01/22 [History Last Taken Unknown] lisinopril 20 mg tablet 20 mg PO DAILY bp #90 tabs 10/24/22 [Rx Last Taken Unknown] bisacodyl 5 mg tablet 5 mg PO QHS PRN constipation 01/29/23 [History Last Taken Unknown] cilostazol 100 mg tablet 100 mg PO BID 01/29/23 [History Last Taken Unknown] melatonin 5 mg tablet 5 mg PO HS PRN sleep 01/29/23 [History Last Taken Unknown] sennosides 8.6 mg tablet (senna) 8.6 mg PO DAILY PRN constipation 01/29/23 [History Last Taken Unknown] bupropion HCl 150 mg tablet,12 hr sustained-release 150 mg PO Q12H 06/11/23 [History Last Taken Unknown] nicotine 21 mg/24 hr daily transdermal patch 1 patch transdermal Q24H 06/11/23 [History Last Taken Unknown] Allergy/AdvReac Type Severity Reaction Status Date / Time oxycodone [From Percocet] Allergy Intermediate Itching Verified 05/01/23 08:12 Family History Sister Diabetes Breast cancer Brother Cancer throat Hypertension Surgical History History of angioplasty of peripheral vessel History of cholecystectomy History of coronary artery stent placement (10/10/15) History of esophagogastroduodenoscopy (EGD) History of hysterectomy History of left heart catheterization (10/09/15) Hx of colonoscopy Hx of heart artery stent S/P craniotomy S/P craniotomy Social History household members: none and other details: She has 2 sons who live locally and can help her and also has 2 sisters housing: apartment number of children: 2 current occupational status: employed 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 mary beth/jainism: Gnosticism seatbelt use: always do you feel safe at home: Yes Physical Exam Const Constitutional Narrative: Appears comfortable. Respirations unlabored. Alert, oriented. Moving all 4 extremities. Risk Stratification Risk Stratification Applicable: No Objective Data Vital Signs: Vital Signs Temp Pulse Resp BP Pulse Ox O2 Del Method O2 Flow Rate 99.8 F H 79 17 114/71 95 Room Air 2 06/12/23 09:25 06/12/23 09:25 06/12/23 09:25 06/12/23 09:25 06/12/23 09:25 06/12/23 09:25 06/11/23 20:30 Oxygen Flow Rate (L/min) 2 Oxygen Delivery Method Room Air Weight: 189 lb 9.561 oz Body Mass Index (BMI) 34.7 Intake & Output: Intake and Output for Last 24 Hours 06/10/23 06/11/23 06/12/23 23:59 23:59 23:59 Intake Total 1008.72 / 1008.72 Balance 1008.72 / 1008.72 Lab / Micro Data 06/12/23 05:40 06/12/23 05:40 Labs: Laboratory Results - last 24 hr 06/11/23 17:03: WBC 6.3, RBC 4.70, Hgb 15.4 H, Hct 45.3, MCV 96.4, MCH 32.8 H, MCHC 34.0, RDW Std Deviation 48.1 H, RDW Coeff of Martha 13.4, Plt Count 234, MPV 9.8, Immature Gran % (Auto) 0.800, Neut % (Auto) 63.2, Lymph % (Auto) 17.5 L, Cloud % (Auto) 17.4 H, Eos % (Auto) 0.5, Baso % (Auto) 0.6, Absolute Neuts (auto)4.0, Absolute Lymphs (auto) 1.11, Nucleated RBC % 0, Sodium 132 L, Potassium 4.1, Chloride 99, Carbon Dioxide 27.0, Anion Gap 6, BUN 12, Creatinine 0.92, Estim Creat Clear Calc 46.29, Est GFR (MDRD) Af Amer 78, Est GFR (MDRD) Non-Af 64, BUN/Creatinine Ratio 13.0, Glucose 194 H, Calcium 9.0, Troponin I High Sens 816 H* 06/11/23 18:40: PT 14.9, INR 1.2, APTT 35.8 06/11/23 19:40: Troponin I High Sens 848 H* 06/11/23 23:00: Troponin I High Sens 838 H* 06/12/23 00:45: APTT 63.9 H 06/12/23 05:39: POC Glucose 198 H 06/12/23 05:40: WBC 4.0 L, RBC 4.58, Hgb 14.6, Hct 44.0, MCV 96.1, MCH 31.9, MCHC 33.2, RDW Std Deviation 47.7 H, RDW Coeff of Martha 13.5, Plt Count 190, MPV 8.9, Immature Gran % (Auto) 1.300 H, Neut % (Auto) 57.7, Lymph % (Auto) 21.6, Cloud % (Auto) 18.6 H, Eos % (Auto) 0.0, Baso % (Auto) 0.8, Absolute Neuts (auto)2.3, Absolute Lymphs (auto) 0.86, Nucleated RBC % 0, Sodium 134 L, Potassium 3.7, Chloride 102, Carbon Dioxide 24.0, Anion Gap 8, BUN 11, Creatinine 0.74, Estim Creat Clear Calc 42.59, Est GFR (MDRD) Af Amer 100, Est GFR (MDRD) Non-Af 83, BUN/Creatinine Ratio 14.8, Glucose 201 H, Calcium 8.2 L, Triglycerides 129, Cholesterol 133, LDL Cholesterol 66, VLDL Cholesterol 26, HDL Cholesterol 41 Micro: Microbiology 06/11/23 15:10 Nasal Secretion SARS-CoV-2 & FLU Antigen (Rapid) - Final SARS-CoV-2 (COVID 19) Cardiology Labs/Tests 06/11/23 17:03: WBC 6.3, RBC 4.70, Hgb 15.4 H, Hct 45.3, MCV 96.4, MCH 32.8 H, MCHC 34.0, Plt Count 234, MPV 9.8, Immature Gran % (Auto) 0.800, Neut % (Auto) 63.2, Lymph % (Auto) 17.5 L, Cloud % (Auto) 17.4 H, Eos % (Auto) 0.5, Baso % (Auto) 0.6, Absolute Neuts (auto) 4.0, Nucleated RBC % 0, Sodium 132 L, Potassium 4.1, Chloride 99, Carbon Dioxide 27.0, Anion Gap 6, BUN 12, Creatinine0.92, Est GFR (MDRD) Af Amer 78, Est GFR (MDRD) Non-Af 64, BUN/Creatinine Ratio 13.0, Glucose 194 H, Calcium 9.0 06/11/23 18:40: PT 14.9, INR 1.2, APTT 35.8 06/12/23 00:45: APTT 63.9 H 06/12/23 05:40: WBC 4.0 L, RBC 4.58, Hgb 14.6, Hct 44.0, MCV 96.1, MCH 31.9, MCHC 33.2, Plt Count 190, MPV 8.9, Immature Gran % (Auto) 1.300 H, Neut % (Auto)57.7, Lymph % (Auto) 21.6, Cloud % (Auto) 18.6 H, Eos % (Auto) 0.0, Baso % (Auto)0.8, Absolute Neuts (auto) 2.3, Nucleated RBC % 0, Sodium 134 L, Potassium 3.7, Chloride 102, Carbon Dioxide 24.0, Anion Gap 8, BUN 11, Creatinine 0.74, Est GFR(MDRD) Af Amer 100, Est GFR (MDRD) Non-Af 83, BUN/Creatinine Ratio 14.8, [id number] H, Calcium 8.2 L, Triglycerides 129, Cholesterol 133, LDL Cholesterol 66, VLDL Cholesterol 26, HDL Cholesterol 41 Rhythm: EKG: ECHO: Stress Test: Cardiac Cath: PCI: CT Surgery: Holter monitor: EPS: PPM: CXR: Chest CT Scan: Radiography Diagnostic Testing: Radiology Impression Brain CT 06/11/23 17:22 IMPRESSION: Age-related and postsurgical changes of the brain. Electronically Signed: Gordon DO Kaiser at 17:51 EDT , Chest X-Ray 06/11/23 17:22 IMPRESSION: Masslike left suprahilar opacity. Electronically Signed: Gordon Saab DO at 17:53 EDT , Chest CTA 06/11/23 18:10 IMPRESSION: No demonstrated pulmonary embolism or arterial dissection. Left upper lobe spiculated mass, slightly larger than on previous study. Electronically Signed: Gordon Saab DO at 18:56 EDT , 06/12/23 1001 <Electronically signed by Gena Johnson MD> Cosigner Signature (if applicable): CC: LANEY Clayton; Dr. Gena Johnson MD; Dr. Nic Caraballo MD~ Signed [facility] Work Phone: [phone]) 731-267910-26-2023 History and physical note Author Nic Caraballo [facility] June 12, 2023 9:33am Note Date/Time June 11, 2023 7 :25pm [facility] Medical Records Department [address] [place] [id number] H&P Exam - Hospitalist 06/11/231924 MR#: [id number] Acct: [id number] Name: KAELYN POWERS Rep #:[id number] : 1955 67 From: Nic Caraballo MD PCP: Iris Barkman, [facility] Status:ADM I N Location: ICU CVICU20 4-1 HPI - General General Date of Admission: 06/11/23 Date of Service: 06/11/23 Chief Complaint: Chest pain HPI Narrative KAELYN POWERS, is a 67 F with a significant history of CAD status post stent about 6 years ago; traumatic subdural hematoma; and small cell lung cancer who presents to emergency department with nonradiating tight substernal chest pain that started on the same day of presentation. Patient denies any nausea, vomiting or difficulty breathing with the chest pain symptoms. On the day of presentation her symptoms actually started with confusion. Familyand patient tested positive for COVID and the patient was positive. Subsequently patient came to the emergency department. At the time of examination by hospitalist patient chest pain had disappeared. Patient received aspirin and heparin at the emergency department since her high sensitive troponin came back to be elevated. Imaging showed enlarging spiculated lung mass. FORMERLY [facility], [facility] Medical History Abnormal gastrointestinal PET scan Adenomatous polyps Anemia Anxiety Atherosclerosis of coronary artery of [place] heart without angina pectoris Back pain Black tarry stools Bladder disease Cancer Cardiology follow-up encounter Claudication Dietary restriction Diverticulosis Essential (primary) hypertension Fatigue Gastritis History of echocardiogram History of edema History of stress test Hoarseness Hyperlipidemia Iron deficiency anemia Iron deficiency anemia due to chronic blood loss Left upper lobe pulmonary nodule Leg cramps Lung mass Marijuana use Nicotine dependence Obesity Peripheral vascular occlusive disease Rectal bleeding Rheumatoid arthritis Smoker Subdural hematoma Subdural hemorrhage Type 2 diabetes mellitus Urinary incontinence Wears dentures Wears glasses Home Medications oxybutynin chloride 15 mg tablet,extended release 24 hr 15 mg PO DAILY bladder 10/01/21 [History Last Taken Unknown] acetaminophen 500 mg tablet 1,000 mg PO Q6H PRN Pain 04/05/22 [History Last Taken Unknown] metformin 1,000 mg tablet 1,000 mg PO BID dm 10/01/22 [History Last Taken Unknown] lisinopril 20 mg tablet 20 mg PO DAILY bp #90 tabs 10/24/22 [Rx Last Taken Unknown] bisacodyl 5 mg tablet 5 mg PO QHS PRN constipation 01/29/23 [History Last Taken Unknown] cilostazol 100 mg tablet 100 mg PO BID 01/29/23 [History Last Taken Unknown] melatonin 5 mg tablet 5 mg PO HS PRN sleep 01/29/23 [History Last Taken Unknown] sennosides 8.6 mg tablet (senna) 8.6 mg PO DAILY PRN constipation 01/29/23 [History Last Taken Unknown] bupropion HCl 150 mg tablet,12 hr sustained-release 150 mg PO Q12H 06/11/23 [History Last Taken Unknown] nicotine 21 mg/24 hr daily transdermal patch 1 patch transdermal Q24H 06/11/23 [History Last Taken Unknown] Allergy/AdvReac Type Severity Reaction Status Date / Time oxycodone [From Percocet] Allergy Intermediate Itching Verified 05/01/23 08:12 Family History Sister Diabetes Breast cancer Brother Cancer throat Hypertension Surgical History History of angioplasty of peripheral vessel History of cholecystectomy History of coronary artery stent placement (10/10/15) History of esophagogastroduodenoscopy (EGD) History of hysterectomy History of left heart catheterization (10/09/15) Hx of colonoscopy Hx of heart artery stent S/P craniotomy S/P craniotomy Social History household members: none and other details: She has 2 sons who live locally and can help her and also has 2 sisters housing: apartment number of children: 2 current occupational status: employed 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 mary beth/jainism: Gnosticism seatbelt use: always do you feel safe at home: Yes ROS ROS Narrative Pertinent positives and pertinent negatives as noted in HPI. All other systems were reviewed and are negative Vital Signs Vital Signs Vital Signs: 06/11/23 12:58 06/11/23 15:14 06/11/23 17:07 Temperature 98.2 F Temperature Source Temporal Pulse Rate 92 Respiratory Rate 16 Respiratory Effort Normal Respiratory Pattern Normal Blood Pressure 160/98 H Blood Pressure Mean 118 Pulse Ox 94 Oxygen Delivery Method Room Air Room Air 06/11/23 18:46 Temperature Temperature Source Pulse Rate 79 Respiratory Rate 16 Respiratory Effort Respiratory Pattern Blood Pressure 103/57 L Blood Pressure Mean 72 Pulse Ox 92 Oxygen Delivery Method Room Air Weight Weight: 66.678 kg Body Mass Index (BMI) 26.9 Physical Exam Narrative Physical exam: General: Well-nourished, well-developed. Head: Normocephalic, atraumatic, no tenderness Eyes: Vision is grossly intact. EOMI ENT, no trauma, moist mucous membranes, no rhinorrhea Neck: Nontender, No thyromegaly. CVS: Regular rate and rhythm. S1-S2 present. No murmur, gallop or rub. Respiratory : clear to auscultation bilaterally, chest wall nontender Abdomen: Soft, nontender, nondistended, normal bowel sounds, no masses : Deferred Back: Nontender, no CVA tenderness, no midline spinal tenderness, deformities, step-offs Extremities: Nontender full range of motion, no trauma Skin: Normal color, no trauma, abrasions Neuro: Alert, oriented, cranial nerves II through XII grossly intact. Psychiatry: Normal mood. Normal affect. Not depressed. Not anxious. Results Lab / Micro Data Attestation: I reviewed the patient's lab results. 06/12/23 05:40 06/12/23 05:40 Labs: Laboratory Results - last 24 hr 06/11/23 17:03: WBC 6.3, RBC 4.70, Hgb 15.4 H, Hct 45.3, MCV 96.4, MCH 32.8 H, MCHC 34.0, RDW Std Deviation 48.1 H, RDW Coeff of Martha 13.4, Plt Count 234, MPV 9.8, Immature Gran % (Auto) 0.800, Neut % (Auto) 63.2, Lymph % (Auto) 17.5 L, Cloud % (Auto) 17.4 H, Eos % (Auto) 0.5, Baso % (Auto) 0.6, Absolute Neuts (auto)4.0, Absolute Lymphs (auto) 1.11, Nucleated RBC % 0, Sodium 132 L, Potassium 4.1, Chloride 99, Carbon Dioxide 27.0, Anion Gap 6, BUN 12, Creatinine 0.92, Estim Creat Clear Calc 46.29, Est GFR (MDRD) Af Amer 78, Est GFR (MDRD) Non-Af 64, BUN/Creatinine Ratio 13.0, Glucose 194 H, Calcium 9.0, Troponin I High Sens 816 H* 06/11/23 18:40: PT 14.9, INR 1.2, APTT 35.8 Micro: Microbiology 06/11/23 15:10 Nasal Secretion SARS-CoV-2 & FLU Antigen (Rapid) - Final SARS-CoV-2 (COVID 19) Radiology Impression Brain CT 06/11/23 17:22 IMPRESSION: Age-related and postsurgical changes of the brain. Electronically Signed: Gordon Saab DO at 17:51 EDT , Chest X-Ray 06/11/23 17:22 IMPRESSION: Masslike left suprahilar opacity. Electronically Signed: Gordon Saab DO at 17:53 EDT , Chest CTA 06/11/23 18:10 IMPRESSION: No demonstrated pulmonary embolism or arterial dissection. Left upper lobe spiculated mass, slightly larger than on previous study. Electronically Signed: Gordon Saab DO at 18:56 EDT , Assessment & Plan Assessment/Plan (1) NSTEMI, initial episode of care: (2) COVID-19: (3) Encephalopathy acute: PLAN: Plan NSTEMI Chest pain with initial high-sensitivity troponin of 816. Trend high-sensitivity troponin Place on a monitored bed at progressive care unit Impression of chest x-ray by radiologist: Masslike left suprahilar opacity. Chest x-ray was independently interpreted: I agree with radiology interpretation. Actual EKG tracing was independently interpreted. Sinus rhythm with no ST elevation. ASA 81 mg p.o. daily ordered SL NTG 0.4 mg prn as needed for chest pain ordered Morphine as needed for pain ordered We will check lipid panel. Stat EKG as needed for chest pain Discussed case with Dr. Nye emergency department physician. With NSTEMI patient will be admitted; and see cardiology for possible heart cath. Cardiology consulted. COVID-19 infection We will put patient on enhanced droplet precautions. Diabetes mellitus Patient with hyperglycemia on presentation Home metformin held. Monitor Accu-Cheks Correction scale insulin ordered. History of a traumatic brain injury Decision to continue heparin drip or not continue heparin drip was considered. In the setting of NSTEMI heparin drip that was started from the emergency department was continued. Clinical monitoring. SONIA Mild SONIA On presentation creatinine was 0.92. Creatinine baseline is about 0.6. Gentle IV hydration. Avoid nephrotoxic's. Home Lisinopril held. Trend BMP Acute encephalopathy from COVID 19 Resolved. Small cell lung cancer Chest CTA showed left upper lobe spiculated mass which per radiologist is slightly larger than previous study. Patient follows up with Dr. Winter. And is supposed to follow-up with oncology. The process has been started DVT prophylaxis: Patient started on heparin drip for non-STEMI. Time spent in the patient's overall evaluation,decision-making process, review of diagnostic data, adjustment of management, discussion with other providers, nursing and ancillary staff involved in patient's care documentation, 70 minutes. Charges/Coding Visit Charges Inpatient E&M: 86142 Init Hosp L3 06/12/23 0933 <Electronically signed by Nic Caraballo MD> Cosigner Signature (if applicable): CC: LANEY Clayton; Dr. Nic Caraballo MD~ Signed [facility] Work Phone: [phone]) 468-434510-26-2023 Progress note Author Gwendolyn Petersen [facility] June 12, 2023 9:32am Note Date/Time June 12, 2023 6 :55am [facility] Medical Records Department [address] [place] [address] Progress Note - Hospitalist 06/12/23 0653 MR#: [id number] Acct: [id number] Name: KAELYN POWERS Rep #:[id number] : 1955 67 From: Gwendolyn Petersen MD PCP: Iris Barkman, [facility] Status:ADM I N Location: ICU CVICU20 4-1 Subjective Subjective Pt continues to have chest pain, denies any problems with her breathing Objective Data Objective Data Vital Signs: Vital Signs Temp Pulse Resp BP Pulse Ox O2 Del Method O2 Flow Rate 98.8 F 90 15 120/84 H 93 Room Air 2 06/12/23 02:00 06/12/23 02:00 06/12/23 02:00 06/12/23 02:00 06/12/23 02:00 06/12/23 02:00 06/11/23 20:30 Oxygen Flow Rate (L/min) 2 Oxygen Delivery Method Room Air Weight: 86 kg Body Mass Index (BMI) 34.7 Intake & Output: Intake and Output for Last 24 Hours 06/10/23 06/11/23 06/12/23 23:59 23:59 23:59 Intake Total 57.47 / 57.47 Balance 57.47 / 57.47 Lab / Micro Data 06/12/23 05:40 06/12/23 05:40 Labs: Laboratory Results - last 24 hr 06/11/23 17:03: WBC 6.3, RBC 4.70, Hgb 15.4 H, Hct 45.3, MCV 96.4, MCH 32.8 H, MCHC 34.0, RDW Std Deviation 48.1 H, RDW Coeff of Martha 13.4, Plt Count 234, MPV 9.8, Immature Gran % (Auto) 0.800, Neut % (Auto) 63.2, Lymph % (Auto) 17.5 L, Cloud % (Auto) 17.4 H, Eos % (Auto) 0.5, Baso % (Auto) 0.6, Absolute Neuts (auto) 4.0, Absolute Lymphs (auto) 1.11, Nucleated RBC % 0, Sodium 132 L, Potassium 4.1, Chloride 99, Carbon Dioxide 27.0, Anion Gap 6, BUN 12, Creatinine 0.92, Estim Creat Clear Calc 46.29, Est GFR (MDRD) Af Amer 78, Est GFR (MDRD) Non-Af 64, BUN/Creatinine Ratio 13.0, Glucose 194 H, Calcium 9.0, Troponin I High Sens 816 H* 06/11/23 18:40: PT 14.9, INR 1.2, APTT 35.8 06/11/23 19:40: Troponin I High Sens 848 H* 06/11/23 23:00: Troponin I High Sens 838 H* 06/12/23 00:45: APTT 63.9 H 06/12/23 05:39: POC Glucose 198 H 06/12/23 05:40: WBC 4.0 L, RBC 4.58, Hgb 14.6, Hct 44.0, MCV 96.1, MCH 31.9, MCHC 33.2, RDW Std Deviation 47.7 H, RDW Coeff of Martha 13.5, Plt Count 190, MPV 8.9, Immature Gran % (Auto) 1.300 H, Neut % (Auto) 57.7, Lymph % (Auto) 21.6, Cloud % (Auto) 18.6 H, Eos % (Auto) 0.0, Baso % (Auto) 0.8, Absolute Neuts (auto)2.3, Absolute Lymphs (auto) 0.86, Nucleated RBC % 0, Sodium 134 L, Potassium 3.7, Chloride 102, Carbon Dioxide 24.0, Anion Gap 8, BUN 11, Creatinine 0.74, Estim Creat Clear Calc 42.59, Est GFR (MDRD) Af Amer 100, Est GFR (MDRD) Non-Af 83, BUN/Creatinine Ratio 14.8, Glucose 201 H, Calcium 8.2 L, Triglycerides 129, Cholesterol 133, LDL Cholesterol 66, VLDL Cholesterol 26, HDL Cholesterol 41 Micro: Microbiology 06/11/23 15:10 Nasal Secretion SARS-CoV-2 & FLU Antigen (Rapid) - Final SARS-CoV-2 (COVID 19) Radiography Diagnostic Testing: Radiology Impression Brain CT 06/11/23 17:22 IMPRESSION: Age-related and postsurgical changes of the brain. Electronically Signed: Gordon Saab DO at 17:51 EDT , Chest X-Ray 06/11/23 17:22 IMPRESSION: Masslike left suprahilar opacity. Electronically Signed: Gordon Saab DO at 17:53 EDT , Chest CTA 06/11/23 18:10 IMPRESSION: No demonstrated pulmonary embolism or arterial dissection. Left upper lobe spiculated mass, slightly larger than on previous study. Electronically Signed: Gordon Saab, DO at 18:56 EDT , Physical Exam Narrative General: Alert, oriented, no apparent distress HEENT: Atraumatic, normocephalic Eyes: Anicteric, normal conjunctiva, extraocular movements grossly intact Neck: Supple Respiratory: Somewhat diminished at the bases, normal respiratory effort Cardiovascular: Regular rate and rhythm GI: Soft, nontender, nondistended Extremities: No edema Musculoskeletal: Moving all extremities Neuro: No overt focal neurological deficits Skin: No rashes appreciated Psych: Cooperative Assessment & Plan Assessment/Plan (1) NSTEMI, initial episode of care: (2) COVID-19: (3) Encephalopathy acute: PLAN: Plan #Nstemi -Unclear type I vs type II -Did have chest pain and troponin 816 up trended to 848 before downtrending again to 838 -CTA on presentation no PE or dissection -Echocardiogram ordered -Patient on heparin drip -Cardiology consulted for possible intervention -Continue #COVID-19 infection -Not hypoxic and not patient's presenting complaint or concern -Does not have indication for additional medications at this time, continue supportive care, not on O2 supplementation or having any breathing complaints #Left upper lobe mass -Follows with oncology -On CT left upper lobe spiculated mass was slightly larger than on previous study at 3.9 x 2.2 -We will need follow-up oncology on DC. #DVT ppx: Heparin drip Gwendolyn Petersen MD Time spent in the patient's overall evaluation,decision-making process, review of diagnostic data, adjustment of management, discussion with other providers, nursing nursing and ancillary staff involved in patient's care documentation, 35minutes Charges/Coding Visit Charges Inpatient E&M: 97987 Subs Hosp L2 06/12/23 0932 <Electronically signed by Gwendolyn Petersen MD> Cosigner Signature (if applicable): CC: ~ Signed [facility] Work Phone: [phone]) 565-608910-25-2023 Discharge summary Author Williams Nye [facility] June 11, 2023 8:36pm Note Date/Time June 11, 2023 5 :08pm [facility] Medical Records Department [address] [place] [address] Emergency Department Summary 06/11/23 MR#: [id number] Acct: [id number] Name: KAELYN POWERS Rep #:[id number] : 1955 67 From: Williams Nye PCP: ALEXANDRU MaC Status:ADM I N Location: ICU CVICU20 4-1 HPI History of Present Illness Chief Complaint: General Illness Narrative Narrative: 67-year-old female presenting with her concern for illness. She states she tested positive for COVID this morning. She does describe fevers, chills, body aches. She has a mild headache. Her reports earlier this morning that she was out of her mind. She was not acting right at all. He states this lasted only in the morning and now she seems to be back to her baseline. She states that she had 2 hours of chest pain earlier today and then came to theemergency room. She was triaged as COVID-patient with home COVID test positive. Patient states he does not currently have any chest pain. She took Tylenol this morning for a fever. No nausea. [facility] Medical History Abnormal gastrointestinal PET scan Adenomatous polyps Anemia Anxiety Atherosclerosis of coronary artery of [place] heart without angina pectoris Back pain Black tarry stools Bladder disease Cancer Cardiology follow-up encounter Claudication Dietary restriction Diverticulosis Essential (primary) hypertension Fatigue Gastritis History of echocardiogram History of edema History of stress test Hoarseness Hyperlipidemia Iron deficiency anemia Iron deficiency anemia due to chronic blood loss Left upper lobe pulmonary nodule Leg cramps Lung mass Marijuana use Nicotine dependence Obesity Peripheral vascular occlusive disease Rectal bleeding Rheumatoid arthritis Smoker Subdural hematoma Subdural hemorrhage Type 2 diabetes mellitus Urinary incontinence Wears dentures Wears glasses Home Medications oxybutynin chloride 15 mg tablet,extended release 24 hr 15 mg PO DAILY bladder 10/01/21 [History Last Taken Unknown] acetaminophen 500 mg tablet 1,000 mg PO Q6H PRN Pain 04/05/22 [History Last Taken Unknown] metformin 1,000 mg tablet 1,000 mg PO BID dm 10/01/22 [History Last Taken Unknown] lisinopril 20 mg tablet 20 mg PO DAILY bp #90 tabs 10/24/22 [Rx Last Taken Unknown] bisacodyl 5 mg tablet 5 mg PO QHS PRN constipation 01/29/23 [History Last Taken Unknown] cilostazol 100 mg tablet 100 mg PO BID 01/29/23 [History Last Taken Unknown] melatonin 5 mg tablet 5 mg PO HS PRN sleep 01/29/23 [History Last Taken Unknown] sennosides 8.6 mg tablet (senna) 8.6 mg PO DAILY PRN constipation 01/29/23 [History Last Taken Unknown] bupropion HCl 150 mg tablet,12 hr sustained-release 150 mg PO Q12H 06/11/23 [History Last Taken Unknown] nicotine 21 mg/24 hr daily transdermal patch 1 patch transdermal Q24H 06/11/23 [History Last Taken Unknown] Allergy/AdvReac Type Severity Reaction Status Date / Time oxycodone [From Percocet] Allergy Intermediate Itching Verified 05/01/23 08:12 Family History Sister Diabetes Breast cancer Brother Cancer throat Hypertension Surgical History History of angioplasty of peripheral vessel History of cholecystectomy History of coronary artery stent placement (10/10/15) History of esophagogastroduodenoscopy (EGD) History of hysterectomy History of left heart catheterization (10/09/15) Hx of colonoscopy Hx of heart artery stent S/P craniotomy S/P craniotomy Social History household members: none and other details: She has 2 sons who live locally and can help her and also has 2 sisters housing: apartment number of children: 2 current occupational status: employed 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 mary beth/jainism: Gnosticism seatbelt use: always do you feel safe at home: Yes ROS ROS ED Constitutional Constitutional ED: Reports chills and fever(s); Denies sweats Eyes Eyes: Denies blurry vision or change in vision ENT ENT ED: Denies ear pain or sore throat Cardiovascular Cardiovascular: Denies chest pain, palpitations or racing heartbeat Respiratory/Chest Respiratory/Chest: Denies cough, dyspnea or sputum Gastrointestinal Gastrointestinal: Denies abdominal pain, constipation, diarrhea, nausea or vomiting Genitourinary Genitourinary ED: Denies dysuria, hematuria or urinary frequency Musculoskeletal Musculoskeletal: Denies arthralgias, myalgias or neck pain Integumentary Denies abscess, Abrasions or rash Neurologic Neurologic: Denies paresthesias or weakness Psychiatric Psychiatric: Denies anxiety, depression, suicidal ideation or suicidal thoughts Endocrine Endocrinology: Denies polydipsia or polyuria EXAM Physical Exam Const Vital Signs: 06/11/23 12:58 06/11/23 15:14 06/11/23 17:07 Temperature 98.2 F Temperature Source Temporal Pulse Rate 92 Respiratory Rate 16 Respiratory Effort Normal Respiratory Pattern Normal Blood Pressure 160/98 H Blood Pressure Mean 118 Pulse Ox 94 Oxygen Delivery Method Room Air Room Air 06/11/23 18:46 Temperature Temperature Source Pulse Rate 79 Respiratory Rate 16 Respiratory Effort Respiratory Pattern Blood Pressure 103/57 L Blood Pressure Mean 72 Pulse Ox 92 Oxygen Delivery Method Room Air Positive well nourished HEENT Reports moist mucous membranes Eyes PERRL and EOMs intact bilaterally Chest Wall inspection of chest normal Resp normal respiratory effort and clear to auscultation bilaterally Auscultation: Negative for rales, rhonchi or wheezes Cardio regular rate and regular rhythm GI normal to inspection, nondistended, normoactive bowel sounds Back/Spine no CVA tenderness Neuro oriented x3, CN's II-XII intact bilaterally and no sensory deficits noted Sensorium / Orientation: alert MDM MDM MDM Narrative Medical decision making narrative: 67-year-old female presenting with, chills, body aches. She also reports that she had some chest pain earlier today which lasted about 2 hours. It is currently gone. Her reports that she was out of her mind this morning. She is back to her baseline. She does have a history of nontraumaticsubdural hematoma. This is on the differential as well as subarachnoid hemorrhage given her history. CT brain will be obtained. Since he is having symptoms of viral syndrome she will be tested for COVID and influenza. She is concerned that her test at home was . On the differential also is acute coronary syndrome, CHF, pneumonia. Considered PE however patient PERC negative. CBC shows no leukocytosis with white blood cell count of 6.3. Hemoglobin stable 15.4. Platelets are normal at 234. INR 1.2. Renal function and electrolytes within normal limits. COVID-positive. Chest x-ray my interpretation shows suprahilar mass and radiologist services and agrees. The patient knows of this. But given her chest pain and her troponin, 816 I did order CTA to rule out PE and this was negative for PE it does show enlarging mass with spiculation. No dissection is noted. The brain was negative. Started on heparin drip. She was given aspirin. Patient was admitted in stablecondition. Impression: 1. COVID-19 2. NSTEMI 3. Altered mental status resolved Lab Data Attestation: I reviewed the patient's lab results. Labs: Laboratory Results - last 24 hr 06/11/23 06/11/23 17:03 18:40 WBC 6.3 RBC 4.70 Hgb 15.4 H Hct 45.3 MCV 96.4 MCH 32.8 H MCHC 34.0 RDW Std Deviation 48.1 H RDW Coeff of Martha 13.4 Plt Count 234 MPV 9.8 Immature Gran % (Auto) 0.800 Neut % (Auto) 63.2 Lymph % (Auto) 17.5 L Cloud % (Auto) 17.4 H Eos % (Auto) 0.5 Baso % (Auto) 0.6 Absolute Neuts (auto) 4.0 Absolute Lymphs (auto) 1.11 Nucleated RBC % 0 PT 14.9 INR 1.2 APTT 35.8 Sodium 132 L Potassium 4.1 Chloride 99 Carbon Dioxide 27.0 Anion Gap 6 BUN 12 Creatinine 0.92 Estim Creat Clear Calc 46.29 Est GFR (MDRD) Af Amer 78 Est GFR (MDRD) Non-Af 64 BUN/Creatinine Ratio 13.0 Glucose 194 H Calcium 9.0 Troponin I High Sens 816 H* Radiography Diagnostic Testing: Clinical Impression(s) from Imaging Studies Brain CT 06/11/23 17:22 IMPRESSION: Age-related and postsurgical changes of the brain. Electronically Signed: Gordon Saab DO at 17:51 EDT , Chest X-Ray 06/11/23 17:22 IMPRESSION: Masslike left suprahilar opacity. Electronically Signed: Gordon Saab DO at 17:53 EDT , Chest CTA 06/11/23 18:10 IMPRESSION: No demonstrated pulmonary embolism or arterial dissection. Left upper lobe spiculated mass, slightly larger than on previous study. Electronically Signed: Gordon Saab DO at 18:56 EDT , Discharge Plan Disposition Disposition: Acute Care Hospital [facility] Discharge Date/Time: 06/11/23 19:45 What to do if you have Problems For any increased pain, shortness of breath, bleeding, nausea or vomiting, chestpain, or any unexpected problems, contact your Primary Care Provider. Call [facility] ([phone]) or report to the closest Emergency Room. Call 911 if necessary. 06/11/232035 <Electronically signed by Williams Nye DO> Cosigner Signature (if applicable): CC: LANEY Clayton ~ Signed [facility] Work Phone: [phone] 468-347610-06-2022 [facility]10-06-2022 History of Present illness Narrative* Bryce Greer MD - 05/23/2022 11:00 AM EDT NEUROSURGERY POST OP NOTE Dr. Bryce Greer MD, [facility] Date of visit: May 23, 2022 Patient Name: Ms.Debora Nataly Powers Date of : 1955 Current Age: [age] year old MRN/E# [id number] Last Office Visit: 05/07/2022 SURGERY: Right craniotomy for evacuation of acute subdural hematoma on 03/28/[address] Greer. PREVIOUS SURGERY: SURGERY #1: Left supratentorial craniotomy for evacuation of an acute subdural hematoma on 10/28/2021 at 3:[address] rGeer. SURGERY #2: Reexploration of the left hemicraniectomy and evacuation of recurrent subdural extracerebral hematoma on 10/28/2021 at 3:[address] Greer. SURGERY #3: Cranioplasty for replacement of left bone flap on 02/01/[address] Greer. Pre-Surgical Symptoms: Headache Patient presents for a 8 week post operative visit. Patient is a 66-year-old female who is status post a left craniotomy for evacuation of a subdural hematoma and taken back to the OR for evacuation of recurrent subdural hematoma in October 2021. She was seen routinely in clinic for postop evaluationwith imaging and did well. She was taken back to the OR in January 2022 for cranioplasty replacement of left bone flap. On 03/28/2022 she presented to the ED after developing a worsening headache. Work-up was completed at [place] ED showing a new right-sided subdural hematoma. On exam she was significantly drowsy needing noxious stimuli to participate in evaluation. Subsequently she was taken to the OR for evacuationof this new right-sided acute subdural hematoma with 9mm MLS as noted above. Since then she has been seen routinely for post op evaluations with imaging. She was last seen on 05/07/22 and reported that she was overall doing well. She continued to have daily headaches which responded to oral Tylenol.Neurologically she was intact without focal deficit. Incision was healing well with a small scab but no apparent signs of infection noted. Recommendation was to follow up in [address] brain forincision check and routine post op visit prompting her visit today. Since last visit she states sheis overall doing well. She is participating in PT/OT and feels she is getting stronger. She has hada few migraine headaches and is taking Oxycodone for this from her PCP. Denies any issues with her incision. She presents for image review, evaluation and plan of care. Incision: Healed PAST MEDICAL HISTORY Diagnosis Date Alcoholism (HCC) Anemia Arthritis Bladder infection CAD S/P percutaneous coronary angioplasty Depression Gall stones Gastritis Heart attack (HCC) 2016 stent x 1 HTN (hypertension) Hyperlipemia Kidney stones Leg pain Peripheral vascular disease (HCC) Personal history of malignant neoplasm of other parts of uterus 1983 No BSO or radiation Rheumatoid arthritis (HCC) Subdural hematoma 10/28/2021 d/t fall requiring surgical intervention Type 2 diabetes mellitus (HCC) recent A1C 7.2 Type 2 diabetes mellitus with hyperglycemia, without long-term current use of insulin (HCC) 02/01/2022 Urethral diverticulum Uterus cancer (HCC) UTI (urinary tract infection) PAST SURGICAL HISTORY Procedure Laterality Date BLADDER SURGERY HX 10/21/2019 Cystoscopy and excision urethral diverticulum CARDIAC CATH 2016 stent x 1 CYSTOURETHROSCOPY 1998 and 1999 Cystoscopy and stone removal LAPAROSCOPY SURG CHOLECYSTECTOMY Cholecystectomy, lap at age 29 per pt PAST SURGICAL HISTORY OF Right 2017 PT STATES SHE HAD A STENT PLACED IN HER RIGHT LEG PAST SURGICAL HISTORY OF 10/28/2021 fall with subdural hematoma requiring surgical intervention TOTAL ABDOMINAL HYSTERECT W/WO RMVL TUBE OVARY ~1979 Hysterectomy, ANDREINA/partial FAMILY HISTORY Problem Relation Age of Onset Diabetes Sister hypertension, obesity Breast Cancer Sister Hypertension Brother ALLERGIES Allergen Reactions Percocet [Oxycodone* Itching Current Outpatient Medications Medication Sig Dispense Refill Bisacodyl (DULCOLAX) 5 mg tab Take 5 mg by mouth as needed for constipation. pantoprazole DR (PROTONIX) 40 mg tablet Take 40 mg by mouth once daily. oxyCODONE IR (ROXICODONE) 5 mg immediate release tablet Take by mouth every 6 hours as needed for pain. atorvastatin (LIPITOR) 40 mg tablet 1 tablet by ORAL/FEEDING TUBE route daily at bedtime. 1 tablet oxybutynin ER (DITROPAN XL) 15 mg 24 hr Extended Rel Tab Take 15 mg by mouth once daily. nicotine (NICODERM) 21 mg/24 hr Apply 1 Patch as directed every 24 hours. acetaminophen (TYLENOL) 500 mg tablet Take 2 tablets by mouth every 6 hours as needed for pain. cholecalciferol (VITAMIN D3) 5,000 unit tab Take 1 tablet by mouth once daily. melatonin 1 mg tablet 5 tablets by ORAL/FEEDING TUBE route daily at bedtime. empagliflozin (JARDIANCE) 25 mg tablet Take 25 mg by mouth daily with breakfast. METFORMIN HCL (METFORMIN ORAL) Take 500 mg by mouth twice daily. Take 0.5 mg in the AM and 0.5mg inthe PM lacosamide (VIMPAT) 100 mg tab 1 tablet by ORAL/FEEDING TUBE route twice daily for 30 days. No current facility-administered medications for this visit. Review of Systems Constitutional: Negative for chills, diaphoresis (Negative for night sweats.) and fever. HENT: Negative for ear discharge and rhinorrhea. Eyes: Negative for discharge. Respiratory: Negative for cough, shortness of breath and wheezing. Cardiovascular: Negative for chest pain, palpitations and leg swelling. Gastrointestinal: Negative for constipation, diarrhea, nausea and vomiting. Endocrine: Negative for cold intolerance and heat intolerance. Genitourinary: Negative for frequency. Negative for urinary incontinence and urinary retention. Musculoskeletal: Negative for back pain, joint swelling, myalgias and neck pain. Skin: Negative for rash (Negative for hives and skin lesions.). Allergic/Immunologic: Negative for environmental allergies and food allergies. Negative for contact allergy, seasonal allergies. Neurological: Positive for headaches. Negative for dizziness, seizures, syncope, weakness, light-headedness and numbness (Negative for numbness in extremities.). Hematological: Does not bruise/bleed easily. Psychiatric/Behavioral: The patient is not nervous/anxious. Negative for depression. PAIN EVALUATION 05/23/2022 1042 Pain Location: Head Description: Aching;Dull Duration Units: Months Frequency: Intermittent Intervention/Comfort measure: Medication Comments: pt continues to have daily GOMES BP 128/72 (BP Site: Left Arm, BP Position: Sitting, BP Cuff Size: Regular Adult) Pulse 65 Ht 5'3 (1.6 m) Wt 160 lb 15 oz (73 kg) SpO2 98% BMI 28.51 kg/m PHYSICAL EXAM: Mental State : Alert, memory function unremarkable. Attention span and concentration normal for patient's age. Speech normal, no receptive or expressive speech deficit. Recent and remote memory normal. Orientation : Oriented to person, place and time. Higher Cortical Function : Intact speech and language. Spontaneous speech and comprehension normal.Fund of knowledge intact for pt level of education. Cranial Nerves : II: No visual field cut no blurring, Makes and sustains eye contact III, IV, : Normal, no double vision or drooping. Pupils equal and reactive to light. Extraocularmuscles intact. No nystagmus V: Normal sensation on the face, normal jaw movements VII: No paresis on either side VIII: No gross hearing deficit IX: Good and equal shoulder shrugs XII: Tongue midline, no fasciculations Sensory: Normal Sensation in upper and lower extremities and trunk to touch and noxious stimuli. Motor: Normal muscle tone and bulk. No tremor or uncontrollable movements. No spasticity or tremor. Strength: Upper Extremities : R L Deltoid 5/5 5/5 Biceps 5/5 5/5 Triceps 5/5 5/5 Wrist Ext 5/5 5/5 Wrist Flx 5/5 5/5 Hand Int 5/5 5/5 Lower Extremities : Hip Flexors 5/5 5/5 Hip Extensors 5/5 5/5 Hip Abductors 5/5 5/5 Straight leg Neg Neg Ankle dorsiflex 5/5 5/5 Ankle Plantar 5/5 5/5 Heel Walking intact intact Toe Walking intact intact Reflexes : Biceps 2+ 2+ Triceps 2+ 2+ Wrist 2+ 2+ Patellar 2+ 2+ Achilles 2+ 2+ Cooper's Neg Neg Tinel's Neg Neg Phalen's Neg Neg Cerebellar Function : Normal finger to nose. Normal rapid alternating movements. No ataxia. Negative Romberg. Gait and Station: Normal gait. No assistive device usage. Pulmonary: Lungs without cough, audible wheeze. Respirations unlabored. Cardiac: Regular rate and rhythm. No murmer, gallop or rub. IMAGING: CT Brain WO IVCON performed today 05/23/22 demonstrates: Report pending but to me the scan shows no recurrence of the subdural hematoma and it shows postoperative changes. ASSESSMENT/PLAN: 1. Acute subdural hematoma - ICD9: 432.1, ICD10: S06.5XAA (primary diagnosis) Patient is here for a postop visit. She is doing well. The incision is well- healed. The scab she had on part of the incision last time fell off and the underlying skin is normal and healed. There is no evidence of subgaleal fluid there is no evidence of scalp infection or tenderness. Neurological examination is normal. I recommended a follow-up visit as needed. 2. Intracranial hemorrhage (HCC) - ICD9: 432.9, ICD10: I62.9 Bryce Greer MD Return for new or worsening symptoms. This note was partially generated using [employer] voice recognition system, and there may be some incorrect words, spellings, and punctuation that were not noted in checking the note before saving. documented in this [facility]22 [facility]09-20-2022 History of Present illness Narrative* Bryce Greer MD - 05/07/2022 11:30 AM EDT NEUROSURGERY POST OP NOTE Dr. Bryce Greer MD, [facility] Date of visit: May 07, 2022 Patient Name: Ms.Debora Nataly Powers Date of : 1955 Current Age: [age] year old MRN/E# [id number] Last Office Visit: 04/18/2022 SURGERY: Right craniotomy for evacuation of acute subdural hematoma on 03/28/[address] Greer. PREVIOUS SURGERY: SURGERY #1: Left supratentorial craniotomy for evacuation of an acute subdural hematoma on 10/28/2021 at 3:[address] Greer. SURGERY #2: Reexploration of the left hemicraniectomy and evacuation of recurrent subdural extracerebral hematoma on 10/28/2021 at 3:[address] Greer. SURGERY #3: Cranioplasty for replacement of left bone flap on 02/01/[address] Greer. Pre-Surgical Symptoms: Headache Patient presents for a 6 week post operative visit. Patient is a 66-year-old female who is status post a left craniotomy for evacuation of a subdural hematoma and taken back to the OR for evacuation of recurrent subdural hematoma in October 2021. She was seen routinely in clinic for postop evaluationwith imaging and did well. She was taken back to the OR in January 2022 for cranioplasty replacement of left bone flap. On 03/28/2022 she presented to the ED after developing a worsening headache. Work-up was completed at [place] ED showing a new right-sided subdural hematoma. On exam she was significantly drowsy needing noxious stimuli to participate in evaluation. Recommendation was to be taken to the OR for evacuation of this new right-sided acute subdural hematoma with 9mm MLS as noted above. Since then she hasbeen seen routinely for post op evaluations with imaging. She was last seen on 04/18/22 and reported that she was overall doing well. She denied any significant headache or concerns. She was planning on starting outpatient therapy. Neurologically she was intact without focal deficit. Incision was heal ing well with a small scab but no apparent signs of infection noted. CT ws reviewed and showed postop changes. Recommendation was to follow up in 2 weeks for a routine post op visit prompting her visit today. Since last visit she states she continues to have daily headaches for which she takes Tylenol. She presents for evaluation and plan of care. Incision: Mostly well healed. Scab remains. PAST MEDICAL HISTORY Diagnosis Date Alcoholism (HCC) Anemia Arthritis Bladder infection CAD S/P percutaneous coronary angioplasty Depression Gall stones Gastritis Heart attack (HCC) 2016 stent x 1 HTN (hypertension) Hyperlipemia Kidney stones Leg pain Peripheral vascular disease (HCC) Personal history of malignant neoplasm of other parts of uterus 1983 No BSO or radiation Rheumatoid arthritis (HCC) Subdural hematoma (HCC) 10/28/2021 d/t fall requiring surgical intervention Type 2 diabetes mellitus (HCC) recent A1C 7.2 Type 2 diabetes mellitus with hyperglycemia, without long-term current use of insulin (HCC) 02/01/2022 Urethral diverticulum Uterus cancer (HCC) UTI (urinary tract infection) PAST SURGICAL HISTORY Procedure Laterality Date BLADDER SURGERY HX 10/21/2019 Cystoscopy and excision urethral diverticulum CARDIAC CATH 2016 stent x 1 CYSTOURETHROSCOPY 1998 and 1999 Cystoscopy and stone removal LAPAROSCOPY SURG CHOLECYSTECTOMY Cholecystectomy, lap at age 29 per pt PAST SURGICAL HISTORY OF Right 2017 PT STATES SHE HAD A STENT PLACED IN HER RIGHT LEG PAST SURGICAL HISTORY OF 10/28/2021 fall with subdural hematoma requiring surgical intervention TOTAL ABDOMINAL HYSTERECT W/WO RMVL TUBE OVARY ~1979 Hysterectomy, ANDREINA/partial FAMILY HISTORY Problem Relation Age of Onset Diabetes Sister hypertension, obesity Breast Cancer Sister Hypertension Brother ALLERGIES Allergen Reactions Percocet [Oxycodone* Itching Current Outpatient Medications Medication Sig Dispense Refill pantoprazole DR (PROTONIX) 40 mg tablet Take 40 mg by mouth once daily. oxyCODONE IR (ROXICODONE) 5 mg immediate release tablet Take by mouth every 6 hours as needed for pain. atorvastatin (LIPITOR) 40 mg tablet 1 tablet by ORAL/FEEDING TUBE route daily at bedtime. 1 tablet oxybutynin ER (DITROPAN XL) 15 mg 24 hr Extended Rel Tab Take 15 mg by mouth once daily. nicotine (NICODERM) 21 mg/24 hr Apply 1 Patch as directed every 24 hours. acetaminophen (TYLENOL) 500 mg tablet Take 2 tablets by mouth every 6 hours as needed for pain. cholecalciferol (VITAMIN D3) 5,000 unit tab Take 1 tablet by mouth once daily. melatonin 1 mg tablet 5 tablets by ORAL/FEEDING TUBE route daily at bedtime. senna-docusate (SENNA-S) 8.6-50 mg per tablet Take 1 tablet by mouth twice daily. empagliflozin (JARDIANCE) 25 mg tablet Take 25 mg by mouth daily with breakfast. METFORMIN HCL (METFORMIN ORAL) Take 500 mg by mouth twice daily. Take 0.5 mg in the AM and 0.5mg inthe PM LISINOPRIL ORAL Take 10 mg by mouth once daily. lacosamide (VIMPAT) 100 mg tab 1 tablet by ORAL/FEEDING TUBE route twice daily for 30 days. No current facility-administered medications for this visit. Review of Systems Constitutional: Negative for chills, diaphoresis (Negative for night sweats.) and fever. HENT: Negative for ear discharge and rhinorrhea. Eyes: Negative for discharge. Respiratory: Negative for cough, shortness of breath and wheezing. Cardiovascular: Negative for chest pain, palpitations and leg swelling. Gastrointestinal: Negative for constipation, diarrhea, nausea and vomiting. Endocrine: Negative for cold intolerance and heat intolerance. Genitourinary: Negative for frequency. Negative for urinary incontinence and urinary retention. Musculoskeletal: Negative for back pain, joint swelling, myalgias and neck pain. Skin: Negative for rash (Negative for hives and skin lesions.). Allergic/Immunologic: Negative for environmental allergies and food allergies. Negative for contact allergy, seasonal allergies. Neurological: Positive for dizziness, light-headedness and headaches. Negative for seizures, syncope, weakness and numbness (Negative for numbness in extremities.). Hematological: Does not bruise/bleed easily. Psychiatric/Behavioral: The patient is not nervous/anxious. Negative for depression. PAIN EVALUATION 05/07/2022 1052 Pain Level: 2 Pain Location: Head Description: Aching;Dull Duration Amount of Time: 2 Duration Units: Weeks Frequency: Continuous Intervention/Comfort measure: Medication;Reposition;Positioning Comments: pt reports daily GOMES, taking tylenol for supportive care BP 112/78 (BP Site: Left Arm, BP Position: Sitting, BP Cuff Size: Regular Adult) Pulse (!) 58 Ht 5' 3 (1.6 m) Wt 156 lb 8.4 oz (71 kg) SpO2 98% BMI 27.73 kg/m PHYSICAL EXAM: Mental State : Alert, memory function unremarkable. Attention span and concentration Normal for patient's age. Recent and remote memory normal Orientation : Oriented to time place and person Higher Cortical Function : Intact speech and language. Spontaneous speech and comprehension normal.Fund of knowledge intact for pt level of education. Cranial Nerves : II: No visual field cut no blurring. Makes and sustains eye contact III, IV, normal, no double vision or drooping. Pupils equal and reactive to light. Extraocular muscles intact. No nystagmus V Normal sensation on the face, normal jaw movements VII No paresis on either side. VIII No gross hearing deficit IX Normal palatal movements XI Good and equal shoulder shrus XII Tongue midline, no fasciculation Sensory : Normal Sensation in upper and lower extremities and trunk to touch and Noxious stimuli. Motor : Normal muscle tone and bulk. No tremor or uncontrollable movements No spasticity . Strength: Upper Extremities : R L Deltoid 5 5 Biceps 5 5 Triceps 5 5 Wrist Ext 5 5 Wrist Flx 5 5 Hand Int. 5 5 Lower Extremities : Hip Flexors 5 5 Hip Extensors 5 5 Hip Abductors 5 5 Hip Adductors 5 5 Quads 5 5 Hamstrings 5 5 Ankle dorsiflex 5 5 Ankle plantars 5 5 Heel Walking 5 5 Toe Walking 5 5 Reflexes : Biceps 2 2 Triceps 2 2 Wrist 2 2 Patellar 2 2 Achilles 2 2 Cooper's Neg Neg Plantars Neg Neg Cerebellar Function : Normal finger to nose and rapid alternating movements. No ataxia Gait and Station: Normal Has a scab in the right parietal area of the incision without fluid collection oozing or purulent discharge or redness. ASSESSMENT/PLAN: 1. Intracranial hemorrhage (HCC) - ICD9: 432.9, ICD10: I62.9 Patient is here for a follow-up visit to check her incision site because she had a scab over the incision. Her neurological examination is normal. I noted the area where there is a scab but there is no redness tenderness discharge or evidence of infection. I left the scab alone and I recommended that we check her again in 2 weeks for this and at that time obtain a CT scan because she continues tohave headache. - CT BRAIN WO MAYELINON Bryce Greer MD IMAGING: No new imaging Return in about 2 weeks (around 05/21/2022) for post-op with CT brain. This note was partially generated using [employer] voice recognition system, and there may be some incorrect words, spellings, and punctuation that were not noted in checking the note before saving. documented in this encounterDayton [facility]09-01-2022 [facility]09-01-2022 History of Present illness Narrative* Bryce Greer MD - 04/18/2022 1:30 PM EDT NEUROSURGERY POST OP NOTE Dr. Bryce Greer MD, [facility] Date of visit: April 18, 2022 Patient Name: Ms.Debora Nataly Powers Date of : 1955 Current Age: [age] year old MRN/E# [id number] Last Office Visit: Postop SURGERY: Right craniotomy for evacuation of acute subdural hematoma on 03/28/[address] Greer. PREVIOUS SURGERY: SURGERY #1: Left supratentorial craniotomy for evacuation of an acute subdural hematoma on 10/28/2021 at 3:[address] Greer. SURGERY #2: Reexploration of the left hemicraniectomy and evacuation of recurrent subdural extracerebral hematoma on 10/28/2021 at 3:[address] Greer. SURGERY #3: Cranioplasty for replacement of left bone flap on 02/01/[address] Greer. Pre-Surgical Symptoms: headache Patient presents for their 1 post operative visit. Patient is a 66-year-old female who is status post a left craniotomy for evacuation of a subdural hematoma and taken back to the OR for evacuation of recurrent subdural hematoma in October 2021. She was seen routinely in clinic for postop evaluation with imaging and did well. She was taken back to the OR in January 2022 for cranioplasty replacement ofleft bone flap. She presented to the emergency department on 03/28/2022 after developing a worseningheadache. Work-up was completed at [place] ED showing a new right-sided subdural hematoma. On exam she was significantly drowsy needing noxious stimuli to participate in evaluation. Recommendation was to be taken to the OR for evacuation of this new right-sided acute subdural hematoma with 9mm MLS as noted above. Following surgery she was stabilized and cleared for discharge to inpatient rehab on04/05/2022. She was advised to continue holding her antiplatelet and blood thinning medications and to follow- up in the office for a postop visit prompting her visit today. Since discharge she states she is overall doing well. She denies any significant headache or concerns. She was discharged from rehab yesterday and plans to start outpatient therapy soon. She presents for evaluation and plan of care. Incision: LOGAN without s/s infection noted. Small scab noted. PAST MEDICAL HISTORY Diagnosis Date Alcoholism (HCC) Anemia Arthritis Bladder infection CAD S/P percutaneous coronary angioplasty Depression Gall stones Gastritis Heart attack (HCC) 2016 stent x 1 HTN (hypertension) Hyperlipemia Kidney stones Leg pain Peripheral vascular disease (HCC) Personal history of malignant neoplasm of other parts of uterus 1983 No BSO or radiation Rheumatoid arthritis (HCC) Subdural hematoma (HCC) 10/28/2021 d/t fall requiring surgical intervention Type 2 diabetes mellitus (HCC) recent A1C 7.2 Type 2 diabetes mellitus with hyperglycemia, without long-term current use of insulin (HCC) 02/01/2022 Urethral diverticulum Uterus cancer (HCC) UTI (urinary tract infection) PAST SURGICAL HISTORY Procedure Laterality Date BLADDER SURGERY HX 10/21/2019 Cystoscopy and excision urethral diverticulum CARDIAC CATH 2016 stent x 1 CYSTOURETHROSCOPY 1998 and 1999 Cystoscopy and stone removal LAPAROSCOPY SURG CHOLECYSTECTOMY Cholecystectomy, lap at age 29 per pt PAST SURGICAL HISTORY OF Right 2017 PT STATES SHE HAD A STENT PLACED IN HER RIGHT LEG PAST SURGICAL HISTORY OF 10/28/2021 fall with subdural hematoma requiring surgical intervention TOTAL ABDOMINAL HYSTERECT W/WO RMVL TUBE OVARY ~1979 Hysterectomy, ANDREINA/partial FAMILY HISTORY Problem Relation Age of Onset Diabetes Sister hypertension, obesity Breast Cancer Sister Hypertension Brother ALLERGIES Allergen Reactions Percocet [Oxycodone* Itching Current Outpatient Medications Medication Sig Dispense Refill ciprofloxacin HCl (CIPRO) 250 mg tablet Take 250 mg by mouth twice daily. #5 days starting 04.17.[address] (PROTONIX) 40 mg tablet Take 40 mg by mouth once daily. oxyCODONE IR (ROXICODONE) 5 mg immediate release tablet Take by mouth every 6 hours as needed for pain. atorvastatin (LIPITOR) 40 mg tablet 1 tablet by ORAL/FEEDING TUBE route daily at bedtime. 1 tablet lacosamide (VIMPAT) 100 mg tab 1 tablet by ORAL/FEEDING TUBE route twice daily for 30 days. oxybutynin ER (DITROPAN XL) 15 mg 24 hr Extended Rel Tab Take 15 mg by mouth once daily. nicotine (NICODERM) 21 mg/24 hr Apply 1 Patch as directed every 24 hours. acetaminophen (TYLENOL) 500 mg tablet Take 2 tablets by mouth every 6 hours as needed for pain. cholecalciferol (VITAMIN D3) 5,000 unit tab Take 1 tablet by mouth once daily. melatonin 1 mg tablet 5 tablets by ORAL/FEEDING TUBE route daily at bedtime. polyethylene glycol 3350 (MIRALAX, GLYCOLAX) 17 gram packet Take 1 Packet by mouth once daily. Dissolve dose in 4 - 8 ounces of liquid and take as directed. empagliflozin (JARDIANCE) 25 mg tablet Take 25 mg by mouth daily with breakfast. METFORMIN HCL (METFORMIN ORAL) Take 500 mg by mouth twice daily. Take 0.5 mg in the AM and 0.5mg inthe PM LISINOPRIL ORAL Take 10 mg by mouth once daily. senna-docusate (SENNA-S) 8.6-50 mg per tablet Take 1 tablet by mouth twice daily. No current facility-administered medications for this visit. Review of Systems Constitutional: Negative for chills, diaphoresis (Negative for night sweats.) and fever. HENT: Negative for ear discharge and rhinorrhea. Eyes: Negative for discharge. Respiratory: Negative for cough, shortness of breath and wheezing. Cardiovascular: Negative for chest pain, palpitations and leg swelling. Gastrointestinal: Negative for constipation, diarrhea, nausea and vomiting. Endocrine: Negative for cold intolerance and heat intolerance. Genitourinary: Negative for frequency. Negative for urinary incontinence and urinary retention. Musculoskeletal: Negative for back pain, joint swelling, myalgias and neck pain. Skin: Negative for rash (Negative for hives and skin lesions.). Allergic/Immunologic: Negative for environmental allergies and food allergies. Negative for contact allergy, seasonal allergies. Neurological: Negative for dizziness, seizures, syncope, weakness, light- headedness, numbness (Negative for numbness in extremities.) and headaches. Hematological: Does not bruise/bleed easily. Psychiatric/Behavioral: The patient is not nervous/anxious. Negative for depression. PAIN EVALUATION 04/18/2022 1346 Pain Level: 0 Pain Location: Head Description: Aching;Dull Frequency: Intermittent Intervention/Comfort measure: Medication Comments: c/o recurrent GOMES, concerned about possible rx to nicotine patches BP 110/70 (BP Site: Left Arm, BP Position: Sitting, BP Cuff Size: Regular Adult) Pulse 76 Ht 5'3 (1.6 m) Wt 150 lb 5.7 oz (68.2 kg) SpO2 96% BMI 26.63 kg/m PHYSICAL EXAM: Mental State : Alert, memory function unremarkable. Attention span and concentration Normal for patient's age. Recent and remote memory normal Orientation : Oriented to time place and person Higher Cortical Function : Intact speech and language. Spontaneous speech and comprehension normal.Fund of knowledge intact for pt level of education. Cranial Nerves : II: No visual field cut no blurring. Makes and sustains eye contact III, IV, normal, no double vision or drooping. Pupils equal and reactive to light. Extraocular muscles intact. No nystagmus V Normal sensation on the face, normal jaw movements VII No paresis on either side. VIII No gross hearing deficit IX Normal palatal movements XI Good and equal shoulder shrus XII Tongue midline, no fasciculation Sensory : Normal Sensation in upper and lower extremities and trunk to touch and Noxious stimuli. Motor : Normal muscle tone and bulk. No tremor or uncontrollable movements No spasticity . Strength: Upper Extremities : R L Deltoid 5 5 Biceps 5 5 Triceps 5 5 Wrist Ext 5 5 Wrist Flx 5 5 Hand Int. 5 5 Lower Extremities : Hip Flexors 5 5 Hip Extensors 5 5 Hip Abductors 5 5 Hip Adductors 5 5 Quads 5 5 Hamstrings 5 5 Ankle dorsiflex 5 5 Ankle plantars 5 5 Heel Walking 5 5 Toe Walking 5 5 Reflexes : Biceps 2 2 Triceps 2 2 Wrist 2 2 Patellar 2 2 Achilles 2 2 Cooper's Neg Neg Plantars Neg Neg Cerebellar Function : Normal finger to nose and rapid alternating movements. No ataxia Gait and Station: Normal IMAGING: CT Brain WO IVCON performed today 04/18/22 demonstrates: Postoperative changes and very small collection underneath the bone flap. ASSESSMENT/PLAN: 1. Intracranial hemorrhage (HCC) - ICD9: 432.9, ICD10: I62.9 Patient had a recent right subdural hematoma that was operated on and she has been discharged now from rehab. Her neurological examination is normal. The incision site is well-healed with a small scab over the posterior part. There is no evidence of fluid collection or infection or tenderness of the incision site. We will check her again in 2 weeks. Bryce Greer MD Return in about 2 weeks (around 05/02/2022) for post op visit. This note was partially generated using [employer] voice recognition system, and there may be some incorrect words, spellings, and punctuation that were not noted in checking the note before saving. documented in this encounterDay[facility] Miscellaneous Notes* Telephone Encounter - Maricruz Archer - 04/10/2022 1:50 PM EDT Spoke with patient's nurse at [facility], Mary. She stated patient's typically aren'table to be transported while in rehab. I explained that Dr. Greer would like patient to have a CTBrain WO. She said she can have their physician order one and have it completed there. She also said that it is noted that patient's lila are to come out within the next couple days and the incision site is healing well. She will let me know if there is any issue with the patient having the CT. documented in this encounterDayton [facility]08-19-2022 [facility]08-18-2022 [facility]08-17-2022 [facility]08-17-2022 [facility]08-16-2022 [facility]08-16-2022 [facility]08-15-2022 History of Present illness Narrative* Ana Zazueta APRN.APPLICATIONS INTERN - 04/01/2022 9:47 AM EDT Images from the original note were not included. Critical Care Transport Note Patient Name: Kaelyn Powers Service Date: 03/28/22 Referring Physician: Gallito Accepting Physician: Guero Referring Facility: [facility] Accepting Facility: [facility] SUBJECTIVE/CHIEF COMPLAINT: I have a bad H/A REASON FOR TRANSPORT: Pt requires specialized neurosurgical evaluation and management, these services are not available at the referring facility History of Present Illness: The following history is what was known to CCT team at time of given care and summarized through: review of available medical records, patient interview, and referring nursing report Kaelyn Powers is a 66 year old female with a past medical history significant for Left SDH in October (s/p crani and evacuation), CAD with stenting, PVD, RA, DM, lung mass, tobacco and marijuana use.She presented to [place] [facility] today for evaluation of severe H/A (9/10) for the past 2-3 days and nausea. Pt describes H/A as throbbing H/A located in the frontal area. Pt states H/A decreased to 4 after Dilaudid. Pt takes ASA, no anticoagulants. Her CT showed acute right SDH over frontal occipital lobes with right to left shift 0.9 cm and mass effect, SAH right sylvian fissure. CTA was reported as negative for aneurysm. Pt was given Dilaudid, zofran, 500 ml IVF bolus, and labetolol 20 mg x 2 doses (initial BP 212/97). At this time, the physician managing the patient requested transfer to [facility] for tertiary and/or quaternary services unavailable at the referring facility. Patient condition at time of exam was: Acutely ill and critically ill. Due to the unique circumstances of the patient, it was d etermined that this was the closest, most appropriate facility by referring physician. The physician managing the patient requested [facility] transport and treat the patient for the purpose of tertiary care, evaluation, and management of her acute neurosurgical condition(s). Air medical transport was requested to reduce the [id number] time, 10 minutes by air vs. approximately 30 minutes by ground, with the potential for increased ground transport time secondary to: distance between facilities and the patient's condition requiring an emergent procedure or evaluation not available at the referring facility and distance between facilities and ground round transport time would be excessive and detrimental to patient given current clinical status ROS: A complete review of systems was performed and is negative except as noted PAST MEDICAL HISTORY: Left SDH in October (s/p crani and evacuation), CAD with stenting, PVD, RA, DM, lung mass, tobacco and marijuana use. PAST SURGICAL HISTORY: CA stenting, mary, hyster, crani ALLERGIES: Percocet [Oxycodone-Acetaminophen] SOCIAL HISTORY: Positive tobacco and marijuana use FAMILY HISTORY: Unknown at time of transport HOME MEDICATIONS: Atorvastatin Cilostazol Metformin Empagliflozin Oxybutynin ASA Medications Administered by Referring Facility: 500 IVF bolus Labetolol 20 mg x 2 doses Zofran x 2 doses Dilaudid 0.5 mg x 2 doses OBJECTIVE: Referring Facility Labs CBC: WBC 12k, Hgb 11.9, Hct 38.6, Plt 332K CHEMISTRY: Na 142, K 4, Cl 112, CO2 23, BUN 12, SCr 0.56, Glu 143 Coags: INR 1, PT 12.7, PTT 35.1 Diagnostics & Procedure Reports ECG: Sinus arrhythmia CXR: no report in chart copy CT Scan: Reviewed, See HPI Invasive Lines/Devices/Tubes Placed by Referring Facility: PIV PHYSICAL EXAM: Upon CCT Arrival at Referring Facility Vital Signs: HR 60bpm, BP 146/75mmHg, RR 12, SpO2 98% Oxygen/Ventilator Settings: 2L NC General appearance: alert, pleasant, cooperative, acutely ill female in mild distress. HEENT: AT/NC, EOMI, left pupil 3, right pupil 2, both react briskly to light. Oropharynx clear, mucous membranes moist and pink, neck supple, trachea midline Respiratory: clear to auscultation bilaterally, no respiratory distress, no rales, no rhonchi, no wheezing, chest excursion equal Cardiovascular: no murmurs, no rubs, no gallops, irregular rate and rhythm-sinus arrhythmia Gastrointestinal: soft, nontender, nondistended with active BS all quads, vomited small amount greenish brown liquid. Genitourinary: voiding clear yellow urine with difficulty Musculoskeletal: No clubbing, cyanosis or edema Skin: no abrasions or open wounds, no rashes noted, skin warm/dry/pink with brisk CR. Heme/Lymph: no petechiae or bleeding noted Neurologic: Awake, alert and oriented x 3, normal speech, Normal strength, Normal sensation, GCS 15 NIHSS: 1(a). Mental Status - LOC 0 = Alert and Attentive 1(b). LOC Questions 0 = Correct age and month 1(c). LOC-Commands 0 = Both 2. Gaze 0 = Normal 3. Visual Mcknight 0 = Full 4. Facial Weakness 0 = Normal 5(a). Left Arm 0 = No drift 5(b). Right Arm 0 = No drift 6(a). Left Leg 0 = No drift 6(b). Right Leg 0 = No drift 7. Ataxia 0 = Absent 8. Sensory 0 = Normal 9. Aphasia 0 = None 10. Dysarthria 0 = Absent 11. Neglect 0 = None NIHSS Total (0-42): 0 CRITICAL CARE COURSE Upon bedside arrival at referring facility the patient was assessed and detailed physical exam performed. Initial exam findings as described above. The patient was placed on the transport monitor andall transport equipment transitioned in standard fashion. The patient was transferred to the transport cot and transported to the Aircraft and loaded without incident. The patient was medically managed, monitored, and reassessed during transport. Medications Managed & Administered by CCT: Keppra one gram IV Procedures Performed by CCT: none ASSESSMENT/PLAN: Kaelyn Powers is a 66 year old female with acute right SDH with shift, SAH, and HTN who was transferred to [facility] for further management Right SDH with shift, Right SAH HTN Nausea -cont tele monitoring with VS per protocol -cont SpO2 monitoring, keep SpO2 >93% -frequent neuro exams -Elevate head of cot -Pt GCS 15, NIH 0, will hold off on Mannitol or HTS for now -given Keppra -received Labetolol for HTN -received Dilaudid for pain -received zofran for nausea with relief The transport was completed without significant incident or change in the patient's status. The patient was transported to the [facility] by [employer]otor (Helicopter) for tertiary and/or quaternary evaluation and management of her Emergent and Critical Surgical condition(s). Upon arrival to the receiving facility, a [id number] report was given to bedside nursing staff inED room 2 and ED MD.. Patient care was transferred. The patient condition was Critical and Acutely Ill at the time of transfer. Vital Signs at time care transferred to the receiving facility unit: HR 58bpm, Rhythm SB, BP 118/59 mmHg, RR 15, SpO2 95% on 2L NC SPECIAL EQUIPMENT: None MODE OF TRANSPORT: [employer] (Helicopter) CRITICAL CARE TIME: I personally performed 30 minutes of critical care time exclusive of separatelybillable procedures, ambulance charges and treating other patients. 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 SIGNATURE: Ana Zazueta APRN.CNP Acute Care Nurse Practitioner [facility] Critical [facility] Team documented in this encounterDayton [facility]08-15-2022 [facility]08-14-2022 [facility]08-14-2022 [facility]08-14-2022 [facility]08-13-2022 [facility]08-13-2022 [facility]08-13-2022 Note [facility]08-12-2022 [facility] 03-29-2022 [facility]08-11-2022 [facility]08[facility]11-2022 [facility]08-11-2022 [facility]08-11-2022 History of Past illness Narrative* Problem Noted Date Resolved Date Subdural hemorrhage 03/28/2022 03/29/2022 Hemorrhagic stroke 03/28/2022 03/28/2022 Skull defect 02/01/2022 02/01/2022 SDH (subdural hematoma) 02/01/2022 02/05/20 22 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/15/2022 02/01/2022 Acute subdural hematoma 10/28/2021 03/29/20 22 Urinary tract infection with hematuria 7 06/26/2019 documented as of this encounter (statuses as of 04/01/2022) [facility]08[facility] History of Past illness Narrative* Problem Noted Date Resolved Date Subdural hemorrhage 03/28/2022 03/29/2022 Skull defect 02/01/2022 02/01/2022 SDH (subdural hematoma) 02/01/2022 02/05/20 22 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/15/2022 02/01/2022 Acute subdural hematoma 10/28/2021 03/29/20 22 Urinary tract infection with hematuria 7 06/26/2019 Chronic anticoagulation 10/21/2016 04/03/20 22 documented as of this encounter (statuses as of 04/09/2022) [facility] History of Past illness Narrative* Problem Noted Date Resolved Date Subdural hemorrhage 03/28/2022 03/29/2022 Skull defect 02/01/2022 02/01/2022 SDH (subdural hematoma) 02/01/2022 02/05/20 22 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/15/2022 02/01/2022 Acute subdural hematoma 10/28/2021 03/29/20 22 Urinary tract infection with hematuria 7 06/26/2019 Chronic anticoagulation 10/21/2016 04/03/20 22 documented as of this encounter (statuses as of 04/10/2022) [facility] History of Past illness Narrative* Problem Noted Date Resolved Date Subdural hemorrhage 03/28/2022 03/29/2022 Skull defect 02/01/2022 02/01/2022 SDH (subdural hematoma) 02/01/2022 02/05/20 22 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/15/2022 02/01/2022 Acute subdural hematoma 10/28/2021 03/29/20 22 Urinary tract infection with hematuria 7 06/26/2019 Chronic anticoagulation 10/21/2016 04/03/20 22 documented as of this encounter (statuses as of 04/18/2022) [facility] of Past illness Narrative* Problem Noted Date Resolved Date Subdural hemorrhage 03/28/2022 03/29/2022 Skull defect 02/01/2022 02/01/2022 SDH (subdural hematoma) 02/01/2022 02/05/20 22 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/15/2022 02/01/2022 Acute subdural hematoma 10/28/2021 03/29/20 22 Urinary tract infection with hematuria 7 06/26/2019 Chronic anticoagulation 10/21/2016 04/03/20 22 documented as of this encounter (statuses as of 04/19/2022) [facility] History of Past illness Narrative* Problem Noted Date Resolved Date Subdural hemorrhage 03/28/2022 03/29/2022 Skull defect 02/01/2022 02/01/2022 SDH (subdural hematoma) 02/01/2022 02/05/20 22 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/15/2022 02/01/2022 Acute subdural hematoma 10/28/2021 03/29/20 22 Urinary tract infection with hematuria 7 06/26/2019 Chronic anticoagulation 10/21/2016 04/03/20 22 documented as of this encounter (statuses as of 05/07/2022) [facility] History of Past illness Narrative* Problem Noted Date Resolved Date Subdural hemorrhage 03/28/2022 03/29/2022 Skull defect 02/01/2022 02/01/2022 SDH (subdural hematoma) 02/01/2022 02/05/20 22 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/15/2022 02/01/2022 Urinary tract infection with hematuria 7 06/26/2019 Chronic anticoagulation 10/21/2016 04/03/20 22 documented as of this encounter (statuses as of 05/23/2022) [facility] History of Past illness Narrative* Problem Noted Date Resolved Date Subdural hemorrhage 03/28/2022 03/29/2022 Skull defect 02/01/2022 02/01/2022 SDH (subdural hematoma) 02/01/2022 02/05/20 22 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/15/2022 02/01/2022 Urinary tract infection with hematuria 7 06/26/2019 Chronic anticoagulation 10/21/2016 04/03/20 22 documented as of this encounter (statuses as of 05/24/2022) [facility]07-26-[facility]22 [facility]07-26-2022 History of Present illness Narrative* Bryce Greer MD - 03/12/2022 10:30 AM EDT NEUROSURGERY POST OP NOTE Dr. Bryce Greer MD, FACS Date of visit: March 12, 2022 Patient Name: Ms.Debora Nataly Powers Date of : 1955 Current Age: [age] year old MRN/E# [id number] Last Office Visit: 02/14/2022 SURGERY: Cranioplasty for replacement of left bone flap on 02/01/[address] Greer. PREVIOUS SURGERY: SURGERY #1: Left supratentorial craniotomy for evacuation of an acute subdural hematoma on 10/28/2021 at 3:[address] Greer. SURGERY #2: Reexploration of the left hemicraniectomy and evacuation of recurrent subdural extracerebral hematoma on 10/28/2021 at 3:[address] Greer. Pre-Surgical Symptoms: Ground-level fall on ASA and Plavix secondary to coronary artery disease andstent placement. Imaging demonstrated an increase of the subdural hematoma on the left convexity spanning the frontal temporal parietal and occipital region with a midline shift of 1.5-1.6 with uncalherniation along with a subarachnoid hemorrhage. Patient presents for a post operative visit. She was initially seen in consult on 10/28/2021 after aground-level fall while on ASA and Plavix. Imaging demonstrated a noted increase in the subdural hematoma with midline shift and uncal herniation as well as a subarachnoid hemorrhage when compared toearlier scans. She was taken emergently to the operating room for evacuation. While in the intensive care unit later that day there was oozing noted from the scalp lesion and her hemoglobin dropped. Repeat CT scan showed improvement of the midline shift but there was a subdural hematoma and she wastaken back to the operating room for reexploration and evacuation with a left-sided bone flap removal. She was seen routinely following surgery and was overall doing very well. She was cleared to have her bone flap replaced and this was completed on 02/01/2022. She was seen 2 weeks postop and reported that she was doing well. She felt her headaches had subsided, her memory was improved and she only developed expressive aphasia when fatigued. Neurologically she was intact on exam without focal deficit. The incision site was healing well and sutures were removed. She was cleared to return to normal activity with a recommendation to follow-up in 3 to 4 weeks prompting her visit today. Since last visit she states she is over all doing well. She denies any headaches, dizziness or confusion. Shehas resumed her ASA and Plavix. She presents for evaluation and plan of care. Incision: Healed PAST MEDICAL HISTORY Diagnosis Date Alcoholism (HCC) Anemia Arthritis Bladder infection CAD S/P percutaneous coronary angioplasty Depression Gall stones Gastritis Heart attack (HCC) 2016 stent x 1 HTN (hypertension) Hyperlipemia Kidney stones Leg pain Peripheral vascular disease (HCC) Personal history of malignant neoplasm of other parts of uterus 1983 No BSO or radiation Rheumatoid arthritis (HCC) Subdural hematoma (HCC) 10/28/2021 d/t fall requiring surgical intervention Type 2 diabetes mellitus (HCC) recent A1C 7.2 Urethral diverticulum Uterus cancer (HCC) UTI (urinary tract infection) PAST SURGICAL HISTORY Procedure Laterality Date BLADDER SURGERY HX 10/21/2019 Cystoscopy and excision urethral diverticulum CARDIAC CATH 2016 stent x 1 CYSTOURETHROSCOPY 1998 and 1999 Cystoscopy and stone removal LAPAROSCOPY SURG CHOLECYSTECTOMY Cholecystectomy, lap at age 29 per pt PAST SURGICAL HISTORY OF Right 2017 PT STATES SHE HAD A STENT PLACED IN HER RIGHT LEG PAST SURGICAL HISTORY OF 10/28/2021 fall with subdural hematoma requiring surgical intervention TOTAL ABDOMINAL HYSTERECT W/WO RMVL TUBE OVARY ~1979 Hysterectomy, ANDREINA/partial FAMILY HISTORY Problem Relation Age of Onset Diabetes Sister hypertension, obesity Breast Cancer Sister Hypertension Brother ALLERGIES Allergen Reactions Percocet [Oxycodone* Itching Current Outpatient Medications Medication Sig Dispense Refill aspirin, enteric coated (ASPIRIN, ENTERIC COATED) 81 mg EC tablet Take 1 tablet by mouth once daily. clopidogrel (PLAVIX) 75 mg tablet Take 75 mg by mouth once daily. nicotine (NICODERM) 7 mg/24 hr Apply 1 Patch as directed every 24 hours. acetaminophen (TYLENOL) 500 mg tablet Take 2 tablets by mouth every 6 hours as needed for pain. cholecalciferol (VITAMIN D3) 5,000 unit tab Take 1 tablet by mouth once daily. melatonin 1 mg tablet 5 tablets by ORAL/FEEDING TUBE route daily at bedtime. (Patient taking differently: Take 6 mg by mouth daily at bedtime. ) polyethylene glycol 3350 (MIRALAX, GLYCOLAX) 17 gram packet Take 1 Packet by mouth once daily. Dissolve dose in 4 - 8 ounces of liquid and take as directed. senna-docusate (SENNA-S) 8.6-50 mg per tablet Take 1 tablet by mouth twice daily. empagliflozin (JARDIANCE) 25 mg tablet Take 25 mg by mouth daily with breakfast. METFORMIN HCL (METFORMIN ORAL) Take 1,000 mg by mouth twice daily. LISINOPRIL ORAL Take 10 mg by mouth once daily. No current facility-administered medications for this visit. Review of Systems Constitutional: Negative for chills, diaphoresis (Negative for night sweats.) and fever. HENT: Negative for ear discharge and rhinorrhea. Eyes: Negative for discharge. Respiratory: Negative for cough, shortness of breath and wheezing. Cardiovascular: Negative for chest pain, palpitations and leg swelling. Gastrointestinal: Negative for constipation, diarrhea, nausea and vomiting. Endocrine: Negative for cold intolerance and heat intolerance. Genitourinary: Negative for frequency. Negative for urinary incontinence and urinary retention. Musculoskeletal: Negative for back pain, joint swelling, myalgias and neck pain. Skin: Negative for rash (Negative for hives and skin lesions.). Allergic/Immunologic: Negative for environmental allergies and food allergies. Negative for contact allergy, seasonal allergies. Neurological: Negative for dizziness, seizures, syncope, weakness, light- headedness, numbness (Negative for numbness in extremities.) and headaches. Hematological: Does not bruise/bleed easily. Psychiatric/Behavioral: The patient is not nervous/anxious. Negative for depression. PAIN EVALUATION No data found in the last 1 encounters. BP 106/58 (BP Site: Left Arm, BP Position: Sitting, BP Cuff Size: Regular Adult) Pulse 81 Ht 5'3 (1.6 m) Wt 163 lb 2.3 oz (74 kg) SpO2 98% BMI 28.90 kg/m PHYSICAL EXAM: Mental State : Alert, memory function unremarkable. Attention span and concentration Normal for patient's age. Recent and remote memory normal Orientation : Oriented to time place and person Higher Cortical Function : Intact speech and language. Spontaneous speech and comprehension normal.Fund of knowledge intact for pt level of education. Cranial Nerves : II: No visual field cut no blurring. Makes and sustains eye contact III, IV, normal, no double vision or drooping. Pupils equal and reactive to light. Extraocular muscles intact. No nystagmus V Normal sensation on the face, normal jaw movements VII No paresis on either side. VIII No gross hearing deficit IX Normal palatal movements XI Good and equal shoulder shrus XII Tongue midline, no fasciculation Sensory : Normal Sensation in upper and lower extremities and trunk to touch and Noxious stimuli. Motor : Normal muscle tone and bulk. No tremor or uncontrollable movements No spasticity . Strength: Upper Extremities : R L Deltoid 5 5 Biceps 5 5 Triceps 5 5 Wrist Ext 5 5 Wrist Flx 5 5 Hand Int. 5 5 Lower Extremities : Hip Flexors 5 5 Hip Extensors 5 5 Hip Abductors 5 5 Hip Adductors 5 5 Quads 5 5 Hamstrings 5 5 Ankle dorsiflex 5 5 Ankle plantars 5 5 Heel Walking 5 5 Toe Walking 5 5 Reflexes : Biceps 2 2 Triceps 2 2 Wrist 2 2 Patellar 2 2 Achilles 2 2 Cooper's Neg Neg Plantars Neg Neg Cerebellar Function : Normal finger to nose and rapid alternating movements. No ataxia Gait and Station: Normal IMAGING: No new imaging ASSESSMENT/PLAN: 1. Intracranial hemorrhage (HCC) - ICD9: 432.9, ICD10: I62.9 Patient is status post evacuation subdural hematoma on the left and decompression followed by cranioplasty. She is doing very well and the incision is well-healed. There is no subgaleal fluid or evidence of wound infection or tenderness. No focal neurological deficit is noted. We will do a follow-up visit in 3 months. Bryce Greer MD Return in about 3 months (around 06/12/2022) for routine evaluation. This note was partially generated using [employer] voice recognition system, and there may be some incorrect words, spellings, and punctuation that were not noted in checking the note before saving. documented in this encounterDayton [facility]06-30-[facility]22 [facility] History of Present illness Narrative* Bryce Greer MD - 02/14/2022 11:00 AM EDT NEUROSURGERY POST OP NOTE Dr. Bryce Greer MD, FACS Date of visit: February 14, 2022 Patient Name: Ms.Debora Nataly Powers Date of : 1955 Current Age: [age] year old MRN/E# [id number] Last Office Visit: post op SURGERY: Cranioplasty for replacement of left bone flap on 02/01/[address] Greer. PREVIOUS SURGERY: SURGERY #1: Left supratentorial craniotomy for evacuation of an acute subdural hematoma on 10/28/2021 at 3:[address] Greer. SURGERY #2: Reexploration of the left hemicraniectomy and evacuation of recurrent subdural extracerebral hematoma on 10/28/2021 at 3:[address] Greer. Pre-Surgical Symptoms: Ground-level fall on ASA and Plavix secondary to coronary artery disease andstent placement. Imaging demonstrated an increase of the subdural hematoma on the left convexity spanning the frontal temporal parietal and occipital region with a midline shift of 1.5-1.6 with uncalherniation along with a subarachnoid hemorrhage. Patient presents for their 1 post operative visit. She was initially seen in consult on 10/28/2021 after being transferred from [facility] after a ground-level fall while on ASA and Plavix. On presentation to the [facility] emergency department new imaging was obtained and demonstrated a noted increase in the subdural hematoma with midline shift and uncal herniation as well as a subarachnoid hemorrhage. She was taken emergently to the operating room for evacuation. While in the intensive care unit later that day there was oozing noted from the scalp lesion and her hemoglobin dropped. Repeat CT scan showed improvement of the midline shift but there was a subdural hematoma and she was taken back to the operating room for reexploration and evacuation with a left- sided bone flap removal. Since then she has been seen routinely for follow-up with imaging and has reported that she is overall doing well. She was cleared to resume ASA and Plavix however her PCP advised her that she no longer needs to be on these medications. Her incisional site was healing well and was sunken as expected. She continued to do well with only intermittent difficulty with word finding. She was cleared to have her bone flap replaced and this was completed as noted above. Since discharge she states she isoverall doing well. States her headaches have subsided since surgery, her memory has improved as well. She reports mild expressive aphasia only when she is tired. She presents for evaluation and plan of care. Incision: BRIM POUNCER - with sutures, healing well. No signs of infection noted. Sutures removed without anissue. PAST MEDICAL HISTORY Diagnosis Date Alcoholism (HCC) Anemia Arthritis Bladder infection CAD S/P percutaneous coronary angioplasty Depression Gall stones Gastritis Heart attack (HCC) 2016 stent x 1 HTN (hypertension) Hyperlipemia Kidney stones Leg pain Peripheral vascular disease (HCC) Personal history of malignant neoplasm of other parts of uterus 1983 No BSO or radiation Rheumatoid arthritis (HCC) Subdural hematoma (HCC) 10/28/2021 d/t fall requiring surgical intervention Type 2 diabetes mellitus (HCC) recent A1C 7.2 Urethral diverticulum Uterus cancer (HCC) UTI (urinary tract infection) PAST SURGICAL HISTORY Procedure Laterality Date BLADDER SURGERY HX 10/21/2019 Cystoscopy and excision urethral diverticulum CARDIAC CATH 2016 stent x 1 CYSTOURETHROSCOPY 1998 and 1999 Cystoscopy and stone removal LAPAROSCOPY SURG CHOLECYSTECTOMY Cholecystectomy, lap at age 29 per pt PAST SURGICAL HISTORY OF Right 2017 PT STATES SHE HAD A STENT PLACED IN HER RIGHT LEG PAST SURGICAL HISTORY OF 10/28/2021 fall with subdural hematoma requiring surgical intervention TOTAL ABDOMINAL HYSTERECT W/WO RMVL TUBE OVARY ~1979 Hysterectomy, ANDREINA/partial FAMILY HISTORY Problem Relation Age of Onset Diabetes Sister hypertension, obesity Breast Cancer Sister Hypertension Brother ALLERGIES Allergen Reactions Percocet [Oxycodone* Itching Current Outpatient Medications Medication Sig Dispense Refill atorvastatin (LIPITOR) 40 mg tablet Take 40 mg by mouth once daily. acetaminophen (TYLENOL) 500 mg tablet Take 2 tablets by mouth every 6 hours as needed for pain. cholecalciferol (VITAMIN D3) 5,000 unit tab Take 1 tablet by mouth once daily. melatonin 1 mg tablet 5 tablets by ORAL/FEEDING TUBE route daily at bedtime. (Patient taking differently: Take 6 mg by mouth daily at bedtime. ) polyethylene glycol 3350 (MIRALAX, GLYCOLAX) 17 gram packet Take 1 Packet by mouth once daily. Dissolve dose in 4 - 8 ounces of liquid and take as directed. senna-docusate (SENNA-S) 8.6-50 mg per tablet Take 1 tablet by mouth twice daily. empagliflozin (JARDIANCE) 25 mg tablet Take 25 mg by mouth daily with breakfast. METFORMIN HCL (METFORMIN ORAL) Take 1,000 mg by mouth twice daily. LISINOPRIL ORAL Take 10 mg by mouth once daily. nicotine (NICODERM) 7 mg/24 hr Apply 1 Patch as directed every 24 hours. No current facility-administered medications for this visit. Review of Systems Constitutional: Negative for chills, diaphoresis (Negative for night sweats.) and fever. HENT: Negative for ear discharge and rhinorrhea. Eyes: Negative for discharge. Respiratory: Negative for cough, shortness of breath and wheezing. Cardiovascular: Negative for chest pain, palpitations and leg swelling. Gastrointestinal: Negative for constipation, diarrhea, nausea and vomiting. Endocrine: Negative for cold intolerance and heat intolerance. Genitourinary: Negative for frequency. Negative for urinary incontinence and urinary retention. Musculoskeletal: Negative for back pain, joint swelling, myalgias and neck pain. Skin: Negative for rash (Negative for hives and skin lesions.). Allergic/Immunologic: Negative for environmental allergies and food allergies. Negative for contact allergy, seasonal allergies. Neurological: Negative for dizziness, seizures, syncope, weakness, light- headedness, numbness (Negative for numbness in extremities.) and headaches. Hematological: Does not bruise/bleed easily. Psychiatric/Behavioral: The patient is not nervous/anxious. Negative for depression. PAIN EVALUATION No data found in the last 1 encounters. BP 107/59 Pulse 64 Resp 16 Ht 5' 3 (1.6 m) Wt 158 lb 11.7 oz (72 kg) SpO2 98% BMI 28.12 kg/m PHYSICAL EXAM: Mental State : Alert, memory function unremarkable. Attention span and concentration Normal for patient's age. Recent and remote memory normal Orientation : Oriented to time place and person Higher Cortical Function : Intact speech and language. Spontaneous speech and comprehension normal.Fund of knowledge intact for pt level of education. Cranial Nerves : II: No visual field cut no blurring. Makes and sustains eye contact III, IV, normal, no double vision or drooping. Pupils equal and reactive to light. Extraocular muscles intact. No nystagmus V Normal sensation on the face, normal jaw movements VII No paresis on either side. VIII No gross hearing deficit IX Normal palatal movements XI Good and equal shoulder shrus XII Tongue midline, no fasciculation Sensory : Normal Sensation in upper and lower extremities and trunk to touch and Noxious stimuli. Motor : Normal muscle tone and bulk. No tremor or uncontrollable movements No spasticity . Strength: Upper Extremities : R L Deltoid 5 5 Biceps 5 5 Triceps 5 5 Wrist Ext 5 5 Wrist Flx 5 5 Hand Int. 5 5 Lower Extremities : Hip Flexors 5 5 Hip Extensors 5 5 Hip Abductors 5 5 Hip Adductors 5 5 Quads 5 5 Hamstrings 5 5 Ankle dorsiflex 5 5 Ankle plantars 5 5 Heel Walking 5 5 Toe Walking 5 5 Reflexes : Biceps 2 2 Triceps 2 2 Wrist 2 2 Patellar 2 2 Achilles 2 2 Cooper's Neg Neg Plantars Neg Neg Cerebellar Function : Normal finger to nose and rapid alternating movements. No ataxia Gait and Station: Normal IMAGING: No new imaging ASSESSMENT/PLAN: 1. Intracranial hemorrhage (HCC) - ICD9: 432.9, ICD10: I62.9 (primary diagnosis) 2. Acquired skull defect - ICD9: 738.19, ICD10: M95.2 Patient is here for a postoperative visit after she underwent replacement of her bone flap to the left hemicraniectomy recently. The incision is well-healed and the sutures are removed. There is no evidence of fluid collection under the flap or evidence of infection or oozing of the wound. He has no focal neurologic deficit. She does not have neurological complaints. She may return to normal activity. We will check her 1 more time in 3 to 4 weeks from now. Should she develop any evidence of infection or concern about the incision site she can call us or go to the emergency room. Bryce Greer MD Return in about 4 weeks (around 03/14/2022). This note was partially generated using [employer] voice recognition system, and there may be some incorrect words, spellings, and punctuation that were not noted in checking the note before saving. documented in this encounterDayton [facility]06-23-2022 Miscellaneous Notes* Telephone Encounter - Donna Morales RN - 02/07/2022 3:05 PM EDT PATIENT INFORMATION Record ID: [id number] Patient [facility]: [facility]: [facility]: [facility] Attending: Bryce Greer Center: Neurosurgery [facility] INSTRUCTIONS All Clear SN to remind patient of next upcoming appointment date, time, location All Clear All Clear All Clear SURVEY INFORMATION Medical/Nurse Government Affairs Fellow: Donna Morales 1. Your discharge instructions are important in guiding you through the recovery process. Is there anything I could help you clarify on your discharge instructions? (Standard Question) No 2. Do you have your follow up appointment related to your hospital stay scheduled within the next 30 days? (Standard Question) Yes 3. Do you have all the necessary equipment and supplies at home? (Standard Question) Yes 4. Many patients have concerns about their medications once they are home. Do you have any questions about getting or taking your medications? (Standard Question) No 5. Do you have any new or different symptoms? (Standard Question) No documented in this encounterDayton [facility] Hospital06-20-2022 [facility]06-19-2022 [facility]06-18-2022 [facility]06-18-2022 [facility]06-17-2022 History of Past illness Narrative* Problem Noted Date Resolved Date Skull defect 02/01/2022 02/01/2022 SDH (subdural hematoma) 02/01/2022 02/05/20 22 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/15/2022 02/01/2022 Urinary tract infection with hematuria 7 06/26/2019 documented as of this encounter (statuses as of 02/07/2022) [facility] History of Past illness Narrative* Problem Noted Date Resolved Date Skull defect 02/01/2022 02/01/2022 SDH (subdural hematoma) 02/01/2022 02/05/20 22 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/15/2022 02/01/2022 Urinary tract infection with hematuria 7 06/26/2019 documented as of this encounter (statuses as of 02/14/2022) [facility] History of Past illness Narrative* Problem Noted Date Resolved Date Skull defect 02/01/2022 02/01/2022 SDH (subdural hematoma) 02/01/2022 02/05/20 22 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/15/2022 02/01/2022 Urinary tract infection with hematuria 7 06/26/2019 documented as of this encounter (statuses as of 03/12/2022) [facility]06-[facility]06-17-2022 [facility]06-07-2022 History and physical note* Ban Donnelly APRN.APPLICATIONS INTERN - 01/22/2022 1:40 PM EDT Images from the original note were not included. HISTORY AND PHYSICAL EXAMINATION SERVICE DATE: 01/22/2022 SERVICE TIME: 1:55 PM PRIMARY CARE PHYSICIAN: Sharif Christianson MD REASON FOR VISIT: Kaelyn Powers is a 66 year old female who is scheduled for Procedure(s): REPLACEMENT OF BONE FLAP SKULL (N/A) at the request of Dr. Bryce Greer for. My final recommendation will be communicated back to the requesting physician by way of shared medical record or letter.Visit type: PST. Subjective The patient has the following: ACTIVE PROBLEM LIST Smoking History Chronic Anticoagulation Kidney Stones Obesity, Class II, Bmi 35-39.9 Iron Deficiency Anemia Due to Chronic Blood Loss Adverse Effect of Iron and Its Compounds, Initial Encounter Intracranial Hemorrhage (Hcc) Acute Subdural Hematoma (Hcc) Uncal Herniation (Hcc) Fall Respiratory Failure After Trauma (Hcc) Hypocalcemia Nicotine use disorder, F17.2 Oropharyngeal Dysphagia Vitamin D Deficiency Acute Alcohol Intoxication (Hcc) Malnutrition of Mild Degree (Hcc) Acquired Skull Defect COVID-19 Immunization Status COVID-19 VACCINE (Series Information) Completed 08/20/2021 Imm Admin: COVID-19 vaccine, full dose (MODERNA) 12/30/2020 Outside Immunization: Pfizer SARS-CoV-2 Vaccination 12/28/2020 Imm Admin: COVID-19 vaccine, full dose (MODERNA) Only the first 3 history entries have been loaded, but more history exists. CHIEF COMPLAINT: Skull flap surgery HPI: Patient presents s/p fall 10-28-2021 resulting in ICH and SDH. She had left craniotomy for evacuation of an acute subdural hematoma and then 12 hours later had reexploration of the left hemicraniectomy and evacuation of recurrent subdural extracerebral hematoma. She is wearing her helmet as advised. Her speech is back to normal. She has minimal right side residual weakness. REVIEW OF SYSTEMS: General: No weight loss, malaise or fevers. Neurological: ICH, SDH-see HPI Negative for: headaches and seizures. Respiratory: Denies coughing, wheezing, SOB Cardiovascular: HTN, CAD-VT, stent x 1 2015, last material chaser visit Dr. Davis, she thinks last visit was 08/2021. PVD-RLE stent, on Pletal. Denies chest pain, palpitations, or CHF GI: Negative for: abdominal pain, nausea and vomiting. : Negative for: frequent urination and urgency. Endocrine: DM-on oral meds, A1C 5.7 11/2021, FBS 112 Negative for: hypothyroidism. Hematology: Denies bleeding/clotting disorder Oncology: Uterine cancer ~1979-Hysterectomy Psych: Anxiety, depression Musculoskeletal: RA PAST MEDICAL HISTORY Diagnosis Date Arthritis Bladder infection Depression Gall stones Heart attack (HCC) 2016 stent x 1 HTN (hypertension) Kidney stones Leg pain Personal history of malignant neoplasm of other parts of uterus 1983 No BSO or radiation Rheumatoid arthritis (HCC) Subdural hematoma (HCC) 10/28/2021 d/t fall requiring surgical intervention Type 2 diabetes mellitus (HCC) recent A1C 7.2 Urethral diverticulum Uterus cancer (HCC) UTI (urinary tract infection) PAST SURGICAL HISTORY Procedure Laterality Date BLADDER SURGERY HX 10/21/2019 Cystoscopy and excision urethral diverticulum CARDIAC CATH 2016 stent x 1 CYSTOURETHROSCOPY 1998 and 1999 Cystoscopy and stone removal LAPAROSCOPY SURG CHOLECYSTECTOMY Cholecystectomy, lap at age 29 per pt PAST SURGICAL HISTORY OF Right 2017 PT STATES SHE HAD A STENT PLACED IN HER RIGHT LEG PAST SURGICAL HISTORY OF 10/28/2021 fall with subdural hematoma requiring surgical intervention TOTAL ABDOMINAL HYSTERECT W/WO RMVL TUBE OVARY ~1979 Hysterectomy, ANDREINA/partial FAMILY HISTORY Problem Relation Age of Onset Diabetes Sister hypertension, obesity Breast Cancer Sister Hypertension Brother Social History Tobacco Use Smoking status: Current Every Day Smoker Packs/day: 1.00 Years: 50.00 Pack years: 50.00 Types: Cigarettes Smokeless tobacco: Never Used Vaping Use Vaping Use: Never used Substance Use Topics Alcohol use: Yes Comment: occasionally Drug use: Yes Types: Marijuana Comment: rare occassion, etibles not used since accident 0n 10-28-2021 Prior to Admission medications as of 01/22/22 1326 Medication Sig Last Dose Taking atorvastatin (LIPITOR) 40 mg tablet Take 40 mg by mouth once daily. Yes cilostazol (PLETAL) 100 mg tablet Take 100 mg by mouth twice daily. Yes acetaminophen (TYLENOL) 500 mg tablet Take 2 tablets by mouth every 6 hours as needed for pain. Yes cholecalciferol (VITAMIN D3) 5,000 unit tab Take 1 tablet by mouth once daily. Yes senna-docusate (SENNA-S) 8.6-50 mg per tablet Take 1 tablet by mouth twice daily. Yes empagliflozin (JARDIANCE) 25 mg tablet Take 25 mg by mouth daily with breakfast. Yes METFORMIN HCL (METFORMIN ORAL) Take 1,000 mg by mouth twice daily. Yes LISINOPRIL ORAL Take 10 mg by mouth once daily. Yes clopidogrel (PLAVIX) 75 mg tablet Take by mouth. Patient not taking: Reported on 01/22/2022 Not Taking at Unknown time folic acid 1 mg tablet Take 1 mg by mouth once daily. nicotine (NICODERM) 7 mg/24 hr Apply 1 Patch as directed every 24 hours. oxyCODONE IR (ROXICODONE) 5 mg immediate release tablet Take 2.5 mg by mouth every 6 hours as needed for pain. melatonin 1 mg tablet 5 tablets by ORAL/FEEDING TUBE route daily at bedtime. Patient taking differently: Take 6 mg by mouth daily at bedtime. polyethylene glycol 3350 (MIRALAX, GLYCOLAX) 17 gram packet Take 1 Packet by mouth once daily. Dissolve dose in 4 - 8 ounces of liquid and take as directed. oxybutynin ER (DITROPAN XL) 15 mg 24 hr Extended Rel Tab Take 7.5 mg by mouth twice daily. No medication comments found. ALLERGIES Allergen Reactions Percocet [Oxycodone* Itching Objective PHYSICAL EXAM: General: alert and oriented and healthy appearance. Skin: Warm, dry, no diaphoresis. HEENT: Wearing protective helmet during exam. Cardiovascular: regular rate and rhythm, normal S1 and S2, no rub, murmurs, or gallop. Respiratory: normal breath sounds, no wheezes or crackles. Abdomen: Soft, nontender, BSx4. Extremities: no deformity, no edema or tenderness, no joint swelling or clubbing. Neurological: normal cognition and motor skills. PAIN ASSESSMENT: VITALS: BP 110/64 Pulse 84 Temp 97.7 Resp 14 Ht 5' 3 (1.60m) Wt 158 lb (71.7kg) SpO2 99% BMI28.00 kg/(m^2). Diagnostic tests reviewed for today's visit: Lab Value Units Date High Low HB 12.2 g/dL 11/22/2021 15.5 11.5 HCT 39.6 % 11/22/2021 46.0 36.0 WBC 6.69 k/uL 11/22/2021 11.00 3.70 PLT 240 k/uL 11/22/2021 400 150 NA 141 mmol/L 11/22/2021 144 136 K 4.4 mmol/L 11/22/2021 5.1 3.7 GLUC 97 mg/dL 11/22/2021 99 74 BUN 10 mg/dL 11/22/2021 21 7 CREAT 0.43 mg/dL 11/22/2021 0.96 0.58 PTSEC 11.4 sec 10/28/2021 13.0 9.7 INR 1.0 no uni* 10/28/2021 1.3 0.9 APTT 25.6 sec 10/28/2021 32.4 23.0 ALT 13 U/L 11/22/2021 38 7 AST 15 U/L 11/22/2021 35 13 TBILI <0.2 mg/dL 11/22/2021 1.3 0.2 TSH No results within date range. Lab Value Units Date High Low HCGQT No results within date range. UHCG No results within date range. HCG, BODY* No results within date range. Lab Value Units Date High Low ABORHD No results within date range. ABSCREEN No results within date range. Hemoglobin A1C (%) Date Value 11/16/2021 5.7 Recent Results (from the past 8760 hour(s)) ECG COMPLETE Collection Time: 10/29/21 1:54 PM Result Value Ventricular Rate 83 Atrial Rate 83 P-R Interval 136 QRS Duration 90 QT Interval 356 QTC Calculation (Bazett) 418 Calculated P [place] 56 Calculated R [place] 75 Calculated T [place] 62 Impression NORMAL SINUS RHYTHM WITH SINUS ARRHYTHMIA LOW VOLTAGE QRS BORDERLINE ECG WHEN COMPARED WITH ECG OF 11-OCT-2015 05:21, NO SIGNIFICANT CHANGE WAS FOUND Confirmed by MD BRIAN, [facility] ([id number]) on 10/30/2021 7:53:36 PM No results found for this or any previous visit (from the past 84719 hour(s)). Assessment No problem-specific Assessment & Plan notes found for this encounter. [place] Activity Status Index: METS: DASI Score: 0 ARISCAT Score: Age: 51-80 Preoperative SpO2: >=96% Respiratory infection in the last month: No Preoperative anemia: No Surgical incision: peripheral Duration of surgery: <2 hrs Emergency procedure: No ARISCAT Score: 3 ANESTHESIA FINDINGS: Intubation History: No history of difficult intubation Significant Anesthesia Considerations: none Airway History: No history of difficult airway I - PHYSICAL EVALUATION DENTAL Dentures, upper: complete. Additional comments: No bottom teeth. II - ANESTHESIA PLAN Anesthetic Plan: general Prepared for Surgery: CONSULTS: Planned Anesthetic: general The Following Tests/Procedures Have Been Initiated: No orders of the defined types were placed in this encounter. FAMILY HISTORY OF ANESTHESIA:No known history of adverse anesthetic event Anticoagulation: None Implantable Devices: Cardiac stent, RLE stent Patient has the following medical conditions which may affect selina-operative course: DM-on oral meds, A1C 5.7 11/2021, FBS 112 HTN-controlled with meds CAD-VT, stent x 2015, last material chaser visit Dr. Davis 09/2021, clearance scanned in [facility] Assessment/Plan PLAN Planned Procedure: Procedure(s): REPLACEMENT OF BONE FLAP SKULL (N/A) CONSULTS Cardiac clearance-Dr. Ryan Oh scanned in [facility] The Following Tests/Procedures Have Been Initiated: CBC, BMP, PT/PTT,COVID ordered in [facility] per surgeon COVID test scheduled 01-29-2022 11am. Patient aware and verbalizes understanding. EKG ordered in [facility] per surgeon-EKG not completed in [facility] today- patient had an EKG completed 10-29-2021 Result: NORMAL SINUS RHYTHM WITH SINUS ARRHYTHMIA Instructions Given to Patient: Instructions located in the after visit summary. Hibiclens and instructions given to patient. Patient given verbal and written preop instructions and voices comprehension and compliance. SIGNATURE: Ban Donnelly APRN.APPLICATIONS INTERN PATIENT NAME: Kaelyn Powers DATE: January 22, 2022 TIME: 12:00 PM PAGER/CONTACT #: documented in this encounterDayton [facility]06-07-2022 Instructions* Patient Instructions* Ban Donnelly APRN.CNP - 01/22/2022 1:40 PM EDT PATIENT PREOPERATIVE INSTRUCTIONS Bryce Greer MD has scheduled you for your procedure at this surgery center: [facility]: [phone], [address] [id number] Please read below carefully for your personalized instructions. Date of Surgery: February 01, 2022 Time of surgery: 8am Arrival Time for Surgery: 6am Please be aware that emergency situations arise, which may delay or change your surgical time. If this happens, we will notify you as soon as possible and regret any inconvenience. Blood Thinning Medications: - Stop NSAIDS (Ibuprofen, Advil, Aleve, Motrin, Celebrex, Mobic, etc.) 7 days before surgery, as directed by your surgeon. - Stop Vitamin E, fish oil, Ginko, Bern's Wort, flax seed oil, multivitamins, CBD oil, marijuana and other over the counter herbals and dietary supplements 7 days before surgery. This would not apply to cancer patients who are prescribed Marinol or any other prescription form of marijuana or CBD. - If you take any of the following blood thinners, please contact your surgeon and the physician who prescribes it for you in order to get perioperative instructions as soon as possible: Aspirin,Coumadin, Plavix, Eliquis, Pradaxa, Xarelto, Lovenox, Brilinta, Effient, Savaysa, etc. Pain Medications: - You may take Tylenol (Acetaminophen) or any of your current prescribed pain medications that do not contain aspirin or NSAIDS as needed. Dietary Restrictions: - No solid food or liquids after midnight except medication listed below with a sip of water. Medications: Approved medications to take the morning of surgery with a sip of water: none You may take BP, heart, thyroid, anxiety/depression, seizure, and pain medications excluding NSAIDS(see above list of NSAIDS) Use inhalers as prescribed. Please bring inhalers. Please follow up with the provider that manages your diabetes and how to prepare you for surgery. If you are taking the following medications for Type 2 diabetes: Canagliflozin (INVOKANA), dapagliflozin (FARXIGA), and empagliflozin (JARDIANCE) should each be discontinued at least 3 days before scheduled surgery. Ertugliflozin (STEGLATRO) should be discontinued at least four days before scheduled surgery If you start any new medications after today's visit, please contact the surgeon's office. Important Reminders: - If you use CPAP/BIPAP, bring the machine with you to the surgery center. - If you are prescribed inhalers for breathing, continue using them AND bring them to the surgery center. - Candy, mints, gum and tobacco products are NOT permitted the morning of surgery. - Hearing aids, dentures and glasses may be worn the morning of surgery. - NO jewelry, body piercings, makeup, hairpins or contacts are to be worn the day of surgery. - NO lotion, creams, powders or deodorants on the skin the day of surgery -If you have a stimulator, implant or pump that requires a remote, please bring the remote with youthe day of surgery. - You will need to have someone else (Family or friend) drive you home once discharged from the hospital. You cannot take a cab or Uber. You are not allowed to drive yourself home after surgery. -Hibiclens with instructions given day of PST. If you develop symptoms such as a fever, cold, or flu, or have other changes to your health within TWO DAYS of scheduled surgery or the morning of surgery, please contact the surgery center above. Personal Belongings: - Leave ALL valuables and money at home or with family members. - You will need a form of ID and insurance card to check in the morning of surgery. - You will have to wear a hospital gown during your stay but if you wish to bring undergarments forafter surgery you may. Our anesthesia department recommends reading Prepare for Surgery, Heal Faster: A Guide of [employer] by Skyla Markham prior to surgery. Ban Donnelly APRN.EVELIA documented in this encounterDay[facility]22 [facility]05[facility] History of Present illness Narrative* Bryce Greer MD - 01/15/2022 11:15 AM EDT NEUROSURGERY POST OP NOTE Dr. Bryce Greer MD, [facility] Date of visit: January 15, 2022 Patient Name: Ms.Debora Nataly Powers Date of : 1955 Current Age: [age] year old MRN/E# [id number] Last Office Visit: 12/18/2021 SURGERY #1: Left supratentorial craniotomy for evacuation of an acute subdural hematoma on 10/28/2021 at 3:[address] Greer. SURGERY #2: Reexploration of the left hemicraniectomy and evacuation of recurrent subdural extracerebral hematoma on 10/28/2021 at 3:[address] Greer. Pre-Surgical Symptoms: Ground-level fall on ASA and Plavix secondary to coronary artery disease andstent placement. Imaging demonstrated an increase of the subdural hematoma on the left convexity spanning the frontal temporal parietal and occipital region with a midline shift of 1.5-1.6 with uncalherniation along with a subarachnoid hemorrhage. Patient presents for a post operative visit. She was initially seen in consult on 10/28/2021 after being transferred from [facility] after a ground-level fall while on ASA and Plavix. On presentation to the [facility] emergency department new imaging was obtained and demonstrated a noted increase in the subdural hematoma with midline shift and uncal herniation as well as a subarachnoid hemorrhage. She was taken emergently to the operating room for evacuation. While in the intensive careunit later that day there was oozing noted from the scalp lesion and her hemoglobin dropped. RepeatCT scan showed improvement of the midline shift but there was a subdural hematoma and she was takenback to the operating room for reexploration and evacuation with a left- sided bone flap removal. Since then she has been seen routinely for follow-up with imaging and has reported that she is overalldoing well. She was cleared to resume ASA and Plavix. Her incisional site was healing well and was sunken as expected. She was wearing her helmet as advised. She was last seen in the office on 12/18/2021 and by her report and her sons her speech was improving and back to normal. She had no weakness on exam. She updated us that her primary care physician told her she no longer needs to be on aspirinor Plavix and therefore this was not resumed. CT was reviewed and it was recommended that more healing time be given to the craniotomy site before she was scheduled for cranioplasty. Recommendation was to follow-up in 4 to [address] weeks with a repeat CT prompting her visit today. Since then she states she is overall doing well. She continues to do well. She reports intermittent difficulty with finding the words but she continues with speech therapy. She presents for image review, evaluation and plan of care. Incision: Healed PAST MEDICAL HISTORY Diagnosis Date Arthritis Bladder infection Depression Gall stones Heart attack (HCC) 2016 stent x 1 HTN (hypertension) Kidney stones Leg pain Personal history of malignant neoplasm of other parts of uterus 1983 No BSO or radiation PMH - PAST MEDICAL HISTORY OF depression Rheumatoid arthritis (HCC) Type 2 diabetes mellitus (HCC) recent A1C 7.2 Urethral diverticulum Uterus cancer (HCC) UTI (urinary tract infection) PAST SURGICAL HISTORY Procedure Laterality Date BLADDER SURGERY HX 10/21/2019 Cystoscopy and excision urethral diverticulum CARDIAC CATH 2016 stent x 1 CYSTOURETHROSCOPY 1998 and 1999 Cystoscopy and stone removal LAPAROSCOPY SURG CHOLECYSTECTOMY Cholecystectomy, lap PAST SURGICAL HISTORY OF Right 2017 PT STATES SHE HAD A STENT PLACED IN HER RIGHT LEG TOTAL ABDOMINAL HYSTERECT W/WO RMVL TUBE OVARY ~1979 Hysterectomy, ANDREINA/partial FAMILY HISTORY Problem Relation Age of Onset Diabetes Sister hypertension, obesity Breast Cancer Sister Hypertension Brother ALLERGIES Allergen Reactions Percocet [Oxycodone* Itching Current Outpatient Medications Medication Sig Dispense Refill cilostazol (PLETAL) 100 mg tablet Take 100 mg by mouth twice daily. folic acid 1 mg tablet Take 1 mg by mouth once daily. nicotine (NICODERM) 7 mg/24 hr Apply 1 Patch as directed every 24 hours. oxyCODONE IR (ROXICODONE) 5 mg immediate release tablet Take 2.5 mg by mouth every 6 hours as needed for pain. acetaminophen (TYLENOL) 500 mg tablet Take 2 tablets by mouth every 6 hours as needed for pain. cholecalciferol (VITAMIN D3) 5,000 unit tab Take 1 tablet by mouth once daily. melatonin 1 mg tablet 5 tablets by ORAL/FEEDING TUBE route daily at bedtime. (Patient taking differently: Take 6 mg by mouth daily at bedtime. ) polyethylene glycol 3350 (MIRALAX, GLYCOLAX) 17 gram packet Take 1 Packet by mouth once daily. Dissolve dose in 4 - 8 ounces of liquid and take as directed. senna-docusate (SENNA-S) 8.6-50 mg per tablet Take 1 tablet by mouth twice daily. empagliflozin (JARDIANCE) 25 mg tablet Take 25 mg by mouth daily with breakfast. oxybutynin ER (DITROPAN XL) 15 mg 24 hr Extended Rel Tab Take 7.5 mg by mouth twice daily. METFORMIN HCL (METFORMIN ORAL) Take 1,000 mg by mouth twice daily. LISINOPRIL ORAL Take 10 mg by mouth once daily. No current facility-administered medications for this visit. Review of Systems Constitutional: Negative for chills, diaphoresis (Negative for night sweats.) and fever. HENT: Negative for ear discharge and rhinorrhea. Eyes: Negative for discharge. Respiratory: Negative for cough, shortness of breath and wheezing. Cardiovascular: Negative for chest pain, palpitations and leg swelling. Gastrointestinal: Negative for constipation, diarrhea, nausea and vomiting. Endocrine: Negative for cold intolerance and heat intolerance. Genitourinary: Negative for frequency. Negative for urinary incontinence and urinary retention. Musculoskeletal: Negative for back pain, joint swelling, myalgias and neck pain. Skin: Negative for rash (Negative for hives and skin lesions.). Allergic/Immunologic: Negative for environmental allergies and food allergies. Negative for contact allergy, seasonal allergies. Neurological: Positive for speech difficulty. Negative for dizziness, seizures, syncope, weakness, light-headedness, numbness (Negative for numbness in extremities.) and headaches. Hematological: Does not bruise/bleed easily. Psychiatric/Behavioral: The patient is not nervous/anxious. Negative for depression. PAIN EVALUATION No data found in the last 1 encounters. BP 136/82 (BP Site: Left Arm, BP Position: Sitting, BP Cuff Size: Regular Adult) Pulse 89 Ht 5'3 (1.6 m) Wt 158 lb 4.6 oz (71.8 kg) SpO2 98% BMI 28.04 kg/m PHYSICAL EXAM: Mental State : Alert, memory function unremarkable. Attention span and concentration Normal for patient's age. Recent and remote memory normal Orientation : Oriented to time place and person Higher Cortical Function : I minimal word finding problem with speech and language. Spontaneous speech and comprehension normal. Fund of knowledge intact for pt level of education. Cranial Nerves : II: No visual field cut no blurring. Makes and sustains eye contact III, IV, normal, no double vision or drooping. Pupils equal and reactive to light. Extraocular muscles intact. No nystagmus V Normal sensation on the face, normal jaw movements VII No paresis on either side. VIII No gross hearing deficit IX Normal palatal movements XI Good and equal shoulder shrus XII Tongue midline, no fasciculation Sensory : Normal Sensation in upper and lower extremities and trunk to touch and Noxious stimuli. Motor : Normal muscle tone and bulk. No tremor or uncontrollable movements No spasticity . Strength: Upper Extremities : R L Deltoid 5 5 Biceps 5 5 Triceps 5 5 Wrist Ext 5 5 Wrist Flx 5 5 Hand Int. 5 5 Lower Extremities : Hip Flexors 5 5 Hip Extensors 5 5 Hip Abductors 5 5 Hip Adductors 5 5 Quads 5 5 Hamstrings 5 5 Ankle dorsiflex 5 5 Ankle plantars 5 5 Heel Walking 5 5 Toe Walking 5 5 Reflexes : Biceps 2 2 Triceps 2 2 Wrist 2 2 Patellar 2 2 Achilles 2 2 Cooper's Neg Neg Plantars Neg Neg Cerebellar Function : Normal finger to nose and rapid alternating movements. No ataxia Gait and Station: Normal IMAGING: CT Brain WO IVCON performed today 01/15/22 demonstrates: Stable postoperative changes of hemicraniectomy. ASSESSMENT/PLAN: 1. Intracranial hemorrhage (HCC) - ICD9: 432.9, ICD10: I62.9 (primary diagnosis) Patient is status post evacuation subdural hematoma that recurred. She had her bone flap out for decompression. She is doing well she is still in speech therapy. When she gets anxious she has word finding trouble. Her examination today was normal. The site of the hemicraniectomy is sunken and appears to have healed well. We are planning a cranioplasty to return the bone flap in 2 weeks. I discussed this with her including expectations risks and complications and side effects and she gave me verbal and written consent to proceed. 2. 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 This note was partially generated using [employer] voice recognition system, and there may be some incorrect words, spellings, and punctuation that were not noted in checking the note before saving. documented in this encounterDay[facility]05-[facility]-2022 [facility]05-03-2022 [facility]04-05-2022 [facility]04-05-2022 [facility]03-30-2022 [facility]03-29-2022 [facility]03-29-2022 Note [facility]03-28-2022 [facility] 11-11-2021 [facility]03-27-2022 [facility]03-26-2022 [facility]03-26-2022 [facility]03-25-2022 [facility]03[facility]24-2022 [facility]03-23-2022 [facility]03-23-2022 Note [facility]03-23-2022 [facility] 11-06-2021 [facility]03-22-2022 [facility]03-22-2022 [facility]03-21-2022 [facility]03-21-2022 [facility]03-21-2022 [facility]03[facility]20-2022 [facility]03-20-2022 Note [facility]03-20-2022 [facility] 11-03-2021 [facility]03-19-2022 [facility]03-19-2022 [facility]03-18-2022 [facility]03-18-2022 [facility]03[facility]18-2022 [facility]03-18-2022 [facility]03-17-2022 Note [facility]03-17-2022 [facility] 10-31-2021 [facility]03-16-2022 [facility]03-14[facility]2022 Note [facility]03-13-2022 [facility]03-13-2022 [facility]03-06-2017 History of Past illness Narrative* Problem Noted Date Resolved Date Urinary tract infection with hematuria 7 06/26/2019 documented as of this encounter (statuses as of 11/10/2021) [facility] of Past illness Narrative* Problem Noted Date Resolved Date Urinary tract infection with hematuria 7 06/26/2019 documented as of this encounter (statuses as of 01/15/2022) [facility] of Past illness Narrative* Problem Noted Date Resolved Date Urinary tract infection with hematuria 7 06/26/2019 documented as of this encounter (statuses as of 01/15/2022) [facility] of Past illness Narrative* Problem Noted Date Resolved Date Urinary tract infection with hematuria 7 06/26/2019 documented as of this encounter (statuses as of 01/16/2022) [facility] of Past illness Narrative* Problem Noted Date Resolved Date Urinary tract infection with hematuria 7 06/26/2019 documented as of this encounter (statuses as of 01/17/2022) [facility] of Past illness Narrative* Problem Noted Date Resolved Date Urinary tract infection with hematuria 7 06/26/2019 documented as of this encounter (statuses as of 01/22/2022) [facility] Gwendolyn Petersen [facility] June 14, 2023 10:12am Note Date/Time June 14, 2023 1 0:12am [facility] Medical Records Department [address] [place] [address] Instructions for Home/Discharge Instructions 06/14/23 1010 MR#: [id number] Acct: [id number] Name: KAELYN POWERS Rep #:[id number] : 1955 67 From: Gwendolyn Petersen MD PCP: Iris Clayton PRESS HAND-C Status:ADM I N Discharge Instructions Diet Discharge Diet: - (DASH diet ) Activity Discharge Activity: - (Increase activity as tolerated) Follow Up Care Test Results: Test results from this visit will be discussed in further detail at your follow- up appointment, if applicable. Discharge Plan Admission Admit Date/Time: 06/11/23 19:25 Primary Reason for Your Visit: Chest pain Attending Provider: Gwendolyn Petersen Primary Care Provider: Iris Clayton Consulting Providers: Nic Caraballo; Gena Johnson Instructions Patient Instructions: How COVID-19 Spreads, Infection Preventing Spread Additional Instructions / Restrictions: DISCHARGE INSTRUCTIONS PLEASE READ *Please take this with you to your next doctors appointment* -You will need to follow-up with cardiology upon discharge, please call the office of Dr. Johnson upon discharge to schedule your hospital follow-up appointment ) - Please follow-up with oncology upon discharge for your lung mass - Your lisinopril has been held due to your blood pressure being on the low side, would recommend monitoring of blood pressure on outpatient basis, this will likely need resumed -You will be discharged on aspirin and Plavix and will discontinue your cilostazol -You will be also discharged on atorvastatin -It is advised that you isolate for 5 days from her positive COVID test and the following 5 days mask when around others -You had elevated blood glucoses as well, continue metformin however you may require additional medication moving forward if glucose is not controlled -Please call your primary care provider's office upon discharge to schedule a hospital follow up within 1 week. -For any concerning signs or symptoms please call 911 or proceed to the nearest emergency department Discharge Orders/Prescriptions Prescriptions: New aspirin 81 mg Tablet,Delayed Release (Dr/Ec) 81 mg PO BREAKFAST Qty: 30 0RF atorvastatin 40 mg Tablet 40 mg PO QHS 30 Days Qty: 30 0RF clopidogrel 75 mg Tablet 75 mg PO DAILY 30 Days Qty: 30 0RF metoprolol tartrate 25 mg Tablet 12.5 mg PO BID 30 Days Qty: 30 0RF Continued metformin 1,000 mg tablet 1,000 mg PO BID oxybutynin chloride 15 mg tablet extended release 24hr 15 mg PO DAILY Patient Comments: TAKE 1 TABLET BY MOUTH DAILY sennosides [senna] 8.6 mg tablet 8.6 mg PO DAILY PRN (Reason: constipation) bisacodyl 5 mg tablet 5 mg PO QHS PRN (Reason: constipation) melatonin 5 mg tablet 5 mg PO HS PRN (Reason: sleep) acetaminophen 500 mg Tablet 1,000 mg PO Q6H PRN (Reason: Pain) bupropion HCl 150 mg tablet sustained-release 12 hr 150 mg PO Q12H Patient Comments: TAKE 1 TABLET BY MOUTH TWICE DAILY nicotine 21 mg/24 hr patch 24 hour 1 patch transdermal Q24H Patient Comments: apply 1 patch to the skin every 24 hours. Remove old patch Discontinued cilostazol 100 mg tablet 100 mg PO BID lisinopril 20 mg tablet 20 mg PO DAILY Qty: 90 3RF Referrals / Follow Up: Gena Johnson MD [Med Staff - Active Staff] - Within 2 Weeks Iris Clayton NP-C [Primary Care Provider] - Within 1 Week Disposition Disposition (needs filled in before D/C Order can be placed): Home, Self Care 06/14/23 1012<Electronically signed by Gwendolyn Petersen MD>Gwendolyn Petersen MD CC: PRESS HAND-C Iris Clayton; Dr. Gena Johnson MD; Dr. Nic Caraballo MD ~ Signed [facility] Work Phone: Discharge summary Author Gwendolyn Petersen [facility] June 14, 2023 10:14am Note Date/Time June 14, 2023 1 0:14am [facility] Medical Records Department [address] [place] [address] Discharge Summary 06/14/23 1012 MR#: [id number] Acct: [id number] Name: KAELYN POWERS Rep #:[id number] : 1955 67 From: Gwendolyn Petersen MD PCP: LANEY Ma Status:ADM I N Location: ICU CVICU 4-1 Providers Date of Admission: 06/11/23 Date of Discharge: 06/14/23 Primary Care Physician: LANEY Ma Consultations 06/11/23 19:51 Consult: Cardiology Routine Consulting Provider: Gena Johnson Reason for Consult: Chest Pain EMERGENT Consult: No MD Notified: Yes Date Notified: 06/12/23 Time Notified: 08:01 Method of Notification: Text Method of Consult:: In-Person Reason For Visit: NSTEMI, COVID 19, ACUTE ENCEPHALOPATHY Diagnosis Discharge Diagnosis (1) NSTEMI, initial episode of care: Status: Acute Code(s): I21.4 - Non-ST elevation (NSTEMI) myocardial infarction (2) COVID-19: Status: Acute Code(s): U07.1 - COVID-19 (3) Encephalopathy acute: Status: Acute Code(s): G93.40 - Encephalopathy, unspecified Plan #Nstemi- likely type I given wall motion abnormalities, EKG, and troponin elevation #Type 2 diabetes mellitus #COVID-19 infection #Left upper lobe mass Medications at Discharge Home Medications oxybutynin chloride 15 mg tablet,extended release 24 hr 15 mg PO DAILY bladder 10/01/21 acetaminophen 500 mg tablet 1,000 mg PO Q6H PRN Pain 04/05/22 metformin 1,000 mg tablet 1,000 mg PO BID dm 10/01/22 bisacodyl 5 mg tablet 5 mg PO QHS PRN constipation 01/29/23 melatonin 5 mg tablet 5 mg PO HS PRN sleep 01/29/23 sennosides 8.6 mg tablet (senna) 8.6 mg PO DAILY PRN constipation 01/29/23 bupropion HCl 150 mg tablet,12 hr sustained-release 150 mg PO Q12H 06/11/23 nicotine 21 mg/24 hr daily transdermal patch 1 patch transdermal Q24H 06/11/23 aspirin 81 mg tablet,delayed release 81 mg PO BREAKFAST #30 tabs 06/14/23 atorvastatin 40 mg tablet 40 mg PO QHS 30 days #30 tabs 06/14/23 clopidogrel 75 mg tablet 75 mg PO DAILY 30 days #30 tabs 06/14/23 metoprolol tartrate 25 mg tablet 12.5 mg (1/2 x 25 mg) PO BID 30 days #30 tabs 06/14/23 Hospital Course Procedures Transthoracic echo Summary of Care Provided Minutes Spent on Discharge: 35 Hospital Course: 67-year-old female with a history of CAD status post stenting 6 years ago who presented 06/11/2023 for chest pain. CTA with no PE or dissection but had troponin in the 800s that trended up to 1500s, was also found to have COVID-19 however was not hypoxic and had no respiratory complaints. Cardiology consultedand patient heparin drip and echocardiogram ordered. Echocardiogram demonstrated EF of 60% with posterior basal lateral basal hypokinesis. Patient improved significantly clinically, no further symptoms, was transitioned off heparin drip and aspirin, Plavix, beta- palomo with no resurgence of symptoms. Given patient's stability plan will be outpatient coronary angiography in 2 to 3weeks with cardiology. Discharge restrictions as follows: DISCHARGE INSTRUCTIONS PLEASE READ *Please take this with you to your next doctors appointment* -You will need to follow-up with cardiology upon discharge, please call the office of Dr. Johnson upon discharge to schedule your hospital follow-up appointment ) - Please follow-up with oncology upon discharge for your lung mass - Your lisinopril has been held due to your blood pressure being on the low side, would recommend monitoring of blood pressure on outpatient basis, this will likely need resumed -You will be discharged on aspirin and Plavix and will discontinue your cilostazol -You will be also discharged on atorvastatin -You had elevated blood glucoses as well, continue metformin however you may require additional medication moving forward if glucose is not controlled -Please call your primary care provider's office upon discharge to schedule a hospital follow up within 1 week. -For any concerning signs or symptoms please call 911 or proceed to the nearest emergency department Physical Exam Narrative General: Alert, oriented, no apparent distress HEENT: Atraumatic, normocephalic Eyes: Anicteric, normal conjunctiva, extraocular movements grossly intact Neck: Supple Respiratory: Fairly good air movement, normal respiratory effort Cardiovascular: Regular rate GI: Soft, nontender, nondistended Extremities: No edema Musculoskeletal: Moving all extremities Neuro: No overt focal neurological deficits Skin: No rashes appreciated Psych: Cooperative Weight / BMI Weight Weight: 86 kg Body Mass Index (BMI) 34.7 ABG / Lab / Microbiology Data 06/14/23 04:22 06/14/23 04:22 Laboratory: Laboratory Results - last 24 hr 06/13/23 11:46: POC Glucose 274 H 06/13/23 16:37: POC Glucose 177 H 06/13/23 21:25: POC Glucose 179 H 06/14/23 04:22: WBC 4.1 L, RBC 4.13 L, Hgb 13.3, Hct 40.5, MCV 98.1, MCH 32.2 H,MCHC 32.8, RDW Std Deviation 49.2 H, RDW Coeff of Martha 13.8, Plt Count 170, MPV 9.0, Immature Gran % (Auto) 0.500, Neut % (Auto) 56.4, Lymph % (Auto) 28.0, Cloud% (Auto) 13.9 H, Eos % (Auto) 1.0, Baso % (Auto) 0.2, Absolute Neuts (auto) 2.3,Absolute Lymphs (auto) 1.15, Nucleated RBC % 0, Sodium 136, Potassium 3.8, Chloride 110 H, Carbon Dioxide 26.0, Anion Gap 0 L, BUN 12, Creatinine 0.58, Estim Creat Clear Calc 42.59, Est GFR (MDRD) Af Amer 132, Est GFR (MDRD) Non-Af 109, BUN/Creatinine Ratio 20.5 H, Glucose 156 H, Hemoglobin A1c 8.1 H, Calcium 8.1 L 06/14/23 08:20: POC Glucose 174 H Microbiology: Microbiology 06/11/23 15:10 Nasal Secretion SARS-CoV-2 & FLU Antigen (Rapid) - Final SARS-CoV-2 (COVID 19) D/C Instructions Discharge Diet: - (DASH diet ) Meaningful Use Info Meaningful Use Diagnoses (Choose all that apply): AMI AMI/Post PCI/Angioplasty Aspirin given w/in 24hrs of arrival?: Yes ASA at discharge?: Yes Statins at discharge?: Yes Brandon/ARB at discharge?: No Reason Brandon/ARB not ordered:: Hypotension Beta Palomo at discharge?: Yes Done w/ Acute VT measure.: Yes Documented LVEF (%): 60 Discharge Plan Admission Admit Date/Time: 06/11/23 19:25 Primary Reason for Your Visit: Chest pain Attending Provider: Gwendolyn Petersen Primary Care Provider: Iris Clayton Consulting Providers: Nic Caraballo; Gena Johnson Instructions Patient Instructions: How COVID-19 Spreads, Infection Preventing Spread Additional Instructions / Restrictions: DISCHARGE INSTRUCTIONS PLEASE READ *Please take this with you to your next doctors appointment* -You will need to follow-up with cardiology upon discharge, please call the office of Dr. Johnson upon discharge to schedule your hospital follow-up appointment ) - Please follow-up with oncology upon discharge for your lung mass - Your lisinopril has been held due to your blood pressure being on the low side, would recommend monitoring of blood pressure on outpatient basis, this will likely need resumed -You will be discharged on aspirin and Plavix and will discontinue your cilostazol -You will be also discharged on atorvastatin -It is advised that you isolate for 5 days from her positive COVID test and the following 5 days mask when around others -You had elevated blood glucoses as well, continue metformin however you may require additional medication moving forward if glucose is not controlled -Please call your primary care provider's office upon discharge to schedule a hospital follow up within 1 week. -For any concerning signs or symptoms please call 911 or proceed to the nearest emergency department Discharge Orders/Prescriptions Prescriptions: New aspirin 81 mg Tablet,Delayed Release (Dr/Ec) 81 mg PO BREAKFAST Qty: 30 0RF atorvastatin 40 mg Tablet 40 mg PO QHS 30 Days Qty: 30 0RF clopidogrel 75 mg Tablet 75 mg PO DAILY 30 Days Qty: 30 0RF metoprolol tartrate 25 mg Tablet 12.5 mg PO BID 30 Days Qty: 30 0RF Continued metformin 1,000 mg tablet 1,000 mg PO BID oxybutynin chloride 15 mg tablet extended release 24hr 15 mg PO DAILY Patient Comments: TAKE 1 TABLET BY MOUTH DAILY sennosides [senna] 8.6 mg tablet 8.6 mg PO DAILY PRN (Reason: constipation) bisacodyl 5 mg tablet 5 mg PO QHS PRN (Reason: constipation) melatonin 5 mg tablet 5 mg PO HS PRN (Reason: sleep) acetaminophen 500 mg Tablet 1,000 mg PO Q6H PRN (Reason: Pain) bupropion HCl 150 mg tablet sustained-release 12 hr 150 mg PO Q12H Patient Comments: TAKE 1 TABLET BY MOUTH TWICE DAILY nicotine 21 mg/24 hr patch 24 hour 1 patch transdermal Q24H Patient Comments: apply 1 patch to the skin every 24 hours. Remove old patch Discontinued cilostazol 100 mg tablet 100 mg PO BID lisinopril 20 mg tablet 20 mg PO DAILY Qty: 90 3RF Referrals / Follow Up: Gena Johnson MD [Med Staff - Active Staff] - Within 2 Weeks Iris Clayton NP-C [Primary Care Provider] - Within 1 Week Disposition Disposition (needs filled in before D/C Order can be placed): Home, Self Care Charges/Coding Visit Charges Inpatient E&M: 46801 Disch Hosp >30min 06/14/23 1014 <Electronically signed by Gwendolyn Petersen MD> Cosigner Signature (if applicable): CC: LANEY Clayton; Dr. Gwendolyn Petersen MD~ Signed [facility] Work Phone: Discharge summary Author [facility] July 22, 2023 12:53pm Note Date/Time July 22, 2023 1 2:53pm [facility] Medical Records Department [address] [place] [address] Instructions for Home/Discharge Instructions 07/22/23 1253 MR#: [id number] Acct: [id number] Name: KAELYN POWERS Rep #:[id number] : 1955 67 From: Isreal cross MD PCP: Dr. Sharif Christianson MD [place] [facility] [place] Instructions Procedure Port-A-Cath Diet Discharge Diet: Light diet - advance as tolerated (Pain medication may cause nausea. You should typically eat light foods as you take your pain medication.) Activity Discharge Activity: Return to Normal Activity and May Shower (with your bandage in place in 1-2 days after surgery. DO NOT SHOWER WHEN YOUR PORT IS ACCESSED.) Dressing / Incision Call your doctor if your incision/area has: Continuous Slow Oozing, Sudden Increased Bleeding, Increased Pain/ Swelling, Increased Redness and Foul Smelling Discharge Call your doctor if you observe: Fever of 101 or Higher Remove Dressing in: 2 days Cleanse incision/area with: Soap & Water Follow Up Care Please Follow Up With: Isreal Carvalho MD When: as needed [phone] Test Results: Test results from this visit will be discussed in further detail at your follow- up appointment, if applicable. Discharge Plan Admission Attending Provider: Isreal Carvalho Primary Care Provider: Sharif Christianson Instructions Additional Instructions / Restrictions: Alternate ibuprofen and Tylenol for pain. Resume blood thinners on Discharge Orders/Prescriptions Prescriptions: No Action metformin 1,000 mg tablet 1,000 mg PO BID oxybutynin chloride 15 mg tablet extended release 24hr 15 mg PO DAILY Patient Comments: TAKE 1 TABLET BY MOUTH DAILY sennosides [senna] 8.6 mg tablet 8.6 mg PO DAILY PRN (Reason: constipation) bisacodyl 5 mg tablet 5 mg PO QHS PRN (Reason: constipation) melatonin 5 mg tablet 5 mg PO HS PRN (Reason: sleep) ondansetron 8 mg tablet,disintegrating 8 mg PO Q8H PRN (Reason: nausea and vomiting) Qty: 30 2RF lidocaine-prilocaine 2.5-2.5 % cream 1 applic topical ONCE PRN (Reason: port access) 30 Days Qty: 30 2RF acetaminophen 500 mg Tablet 1,000 mg PO Q6H PRN (Reason: Pain) bupropion HCl 150 mg tablet sustained-release 12 hr 150 mg PO Q12H Patient Comments: TAKE 1 TABLET BY MOUTH TWICE DAILY nicotine 21 mg/24 hr patch 24 hour 1 patch transdermal Q24H Patient Comments: apply 1 patch to the skin every 24 hours. Remove old patch aspirin 81 mg tablet,delayed release (DR/EC) 81 mg PO BREAKFAST Qty: 90 3RF atorvastatin 40 mg tablet 40 mg PO QHS Qty: 90 3RF clopidogrel 75 mg tablet 75 mg PO DAILY Qty: 90 3RF metoprolol tartrate 25 mg tablet 12.5 mg PO BID Qty: 90 3RF Referrals / Follow Up: Sharif Christianson MD [Primary Care Provider] - Disposition Disposition (needs filled in before D/C Order can be placed): Home, Self Care 07/22/23 1253<Electronically signed by Isreal Carvalho MD>Isreal Carvalho MD CC: Dr. Sharif Christianson MD ~ Signed [facility] Work Phone: Evaluation note* Diagnosis Intracranial hemorrhage (HCC) Unspecified [facility] Onset Date Resolution Status Adenomatous polyps chronic Diverticulosis chronic Gastritis chronic Iron deficiency anemia due to chronic blood loss chronic Left upper lobe pulmonary nodule chronic Atherosclerosis of coronary artery of wales heart without angina pectoris chronic Essential (primary) hypertension chronic Hyperlipidemia chronic Peripheral vascular occlusive disease chronic Adenomatous polyps chronic Diverticulosis chronic Gastritis chronic Iron deficiency anemia due to chronic blood loss chronic Left upper lobe pulmonary nodule [facility] Work Phone: Evaluation note* Diagnosis Intracranial hemorrhage (HCC)- Primary Unspecified intracranial hemorrhage Acquired skull defect Other specified acquired deformity of head [facility] [place] [facility]* Diagnosis Intracranial hemorrhage (HCC)- Primary Unspecified intracranial hemorrhage Acquired skull defect Other specified acquired deformity of head documented in this encounter [facility] note* Diagnosis Intracranial hemorrhage (HCC) Unspecified intracranial hemorrhage [facility] [place] [facility]* Diagnosis Skull defect- Primary Unspecified acquired deformity of head Skull defect Unspecified acquired deformity of head [facility] [place] [facility]* Diagnosis Preop examination Preoperative examination, unspecified Defect of skull Unspecified acquired deformity of head Hypertension, unspecified type Diabetes mellitus without complication (HCC) Type II or unspecified type diabetes mellitus without mention of complication, not stated as uncontrolled 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 Skull defect Unspecified acquired deformity of head [facility] [place] [facility]* Diagnosis Intracranial hemorrhage (HCC)- Primary Unspecified intracranial hemorrhage Acquired skull defect Other specified acquired deformity of head [facility] [place] [facility]* Diagnosis Intracranial hemorrhage (HCC)- Primary Unspecified intracranial hemorrhage [facility] [place] [facility]* Diagnosis Intracranial hemorrhage (HCC)- Primary Unspecified intracranial hemorrhage [facility] [place] [facility]* Diagnosis Subdural hemorrhage (HCC) Subdural hemorrhage [facility] [place] [facility]* Diagnosis Onset Date Resolution Status Atherosclerosis of coronary artery of wales heart without angina pectoris chronic Essential (primary) hypertension chronic Hyperlipidemia chronic Peripheral vascular occlusive disease chronic Iron deficiency anemia due t o chronic blood loss chronic Physical debility acute S/P craniotomy acute Subdural hematoma acute Type 2 diabetes mellitus acu te Urinary incontinence acute Acute on chronic blood loss anemia chronic Atherosclerosis of coronary artery of wales heart without angina pectoris chronic Essential (primary) hypertension chronic History of coronary artery stent placement October 102015 chronic Hyperlipidemia chronic Iron deficiency anemia due t o chronic blood loss chronic Nicotine dependence chronic Peripheral vascular occlusive disease chronic [facility] Work Phone: Evaluation note* Diagnosis Intracranial hemorrhage (HCC)- Primary Unspecified intracranial hemorrhage [facility] [place] [facility] Diagnosis Acute subdural hematoma- Primary Subdural hemorrhage Intracranial hemorrhage (HCC) Unspecified intracranial hemorrhage [facility] [place] [facility]* Diagnosis Intracranial hemorrhage (HCC) Unspecified intracranial hemorrhage [facility] [place] [facility] Diagnosis Onset Date Resolution Status Adenomatous polyps chronic Diverticulosis chronic Gastritis chronic Iron deficiency anemia due to chronic blood loss chronic Left upper lobe pulmonary nodule chronic Physical debility acute S/P craniotomy acute Subdural hematoma acute Acute on chronic blood loss anemia chronic Iron deficiency anemia due to chronic blood loss chronic Nicotine dependence chronic Adenomatous polyps chronic Diverticulosis chronic Gastritis chronic Iron deficiency anemia due to chronic blood loss chronic Left upper lobe pulmonary nodule chronic Palpitations acute [facility] Work Phone: Evaluation note* Diagnosis Onset Date Resolution Status Physical debility acute S/P craniotomy acute Subdural hematoma acute Acute on chronic blood loss anemia chronic Iron deficiency anemia due to chronic blood loss chronic Nicotine dependence chronic Adenomatous polyps chronic Diverticulosis chronic Gastritis chronic Iron deficiency anemia due to chronic blood loss chronic Left upper lobe pulmonary nodule chronic Palpitations acute Iron deficiency anemia due to chronic blood loss chronic Left upper lobe pulmonary nodule chronic [facility] Work Phone: Evaluation note* Diagnosis Onset Date Resolution Status Adenomatous polyps chronic Diverticulosis chronic Gastritis chronic Iron deficiency anemia due to chronic blood loss chronic Left upper lobe pulmonary nodule chronic Palpitations acute Iron deficiency anemia due to chronic blood loss chronic Left upper lobe pulmonary nodule chronic [facility] Work Phone: Evaluation note* Diagnosis Onset Date Resolution Status Iron deficiency anemia due to chronic blood loss chronic Left upper lobe pulmonary nodule chronic Claudication resolved [facility] Work Phone: Evaluation note* Diagnosis Onset Date Resolution Status Claudication resolved [facility] Work Phone: Evaluation note* Diagnosis Onset Date Resolution Status Iron deficiency anemia due to chronic blood loss chronic Left upper lobe pulmonary nodule chronic [facility] Work Phone: Evaluation noteNo assessment information available [facility] Work Phone: Evaluation note* Diagnosis Onset Date Resolution Status Coronary artery disease acut e COVID-19 acute Diabetes acute Encephalopathy acute acute NSTEMI, initial episode of care acute Peripheral arterial disease [facility] Work Phone: evaluation note* Diagnosis Onset Date Resolution Status Coronary artery disease acut e COVID-19 acute Diabetes acute NSTEMI, initial episode of care acute Peripheral arterial disease acute Encephalopathy acute resolve d Cancer of upper lobe of left lung acute Cancer of upper lobe of left lung acute Essential (primary) hypertension acute History of coronary artery stent placement October 102015 acute NSTEMI, initial episode of care acute Cancer of upper lobe of left lung acute Encounter for education acut e Encounter for adjustment and management of vascular access device acute NSTEMI, initial episode of care [facility] Work Phone: evaluation note* Diagnosis Onset Date Resolution Status Coronary artery disease acut e COVID-19 acute Diabetes acute NSTEMI, initial episode of care acute Peripheral arterial disease acute Encephalopathy acute resolve d Cancer of upper lobe of left lung acute Cancer of upper lobe of left lung acute Essential (primary) hypertension acute History of coronary artery stent placement October 102015 acute NSTEMI, initial episode of care acute Cancer of upper lobe of left lung acute Encounter for education acut e Encounter for adjustment and management of vascular access device acute NSTEMI, initial episode of care acute Cancer of upper lobe of left lung [facility] Work Phone: Evaluation note* Diagnosis Onset Date Resolution Status Coronary artery disease acut e COVID-19 acute Diabetes acute NSTEMI, initial episode of care acute Peripheral arterial disease acute Encephalopathy acute resolve d Cancer of upper lobe of left lung acute Cancer of upper lobe of left lung acute Essential (primary) hypertension acute History of coronary artery stent placement October 102015 acute NSTEMI, initial episode of care acute Cancer of upper lobe of left lung acute Encounter for education acut e Encounter for adjustment and management of vascular access device acute NSTEMI, initial episode of care acute Cancer of upper lobe of left lung acute Cancer of upper lobe of left lung acute Cancer of upper lobe of left lung acute Constipation acute Encounter for chemotherapy management acute Cancer of upper lobe of left lung acute Cancer of upper lobe of left lung acute Encounter for chemotherapy management acute Cancer of upper lobe of left lung acute Cancer of upper lobe of left lung acute Essential (primary) hypertension acute History of coronary artery stent placement October 102015 acute Cancer of upper lobe of left lung acute Cancer of upper lobe of left lung acute Cancer of upper lobe of left lung acute Cancer of upper lobe of left lung acute Cancer of upper lobe of left lung acute Cancer of upper lobe of left lung acute Cancer of upper lobe of left lung acute [facility] Work Phone: Evaluation note* Diagnosis Onset Date Resolution Status Cancer of upper lobe of left lung acute Cancer of upper lobe of left lung acute Encounter for chemotherapy management acute Cancer of upper lobe of left lung acute Cancer of upper lobe of left lung acute Essential (primary) hypertension acute History of coronary artery stent placement October 102015 acute Cancer of upper lobe of left lung acute Cancer of upper lobe of left lung acute Cancer of upper lobe of left lung acute Cancer of upper lobe of left lung acute Cancer of upper lobe of left lung acute Cancer of upper lobe of left lung acute Cancer of upper lobe of left lung acute Cancer of upper lobe of left lung acute Cancer of upper lobe of left lung acute Cancer of upper lobe of left lung acute [facility] Work Phone: Evaluation note* Diagnosis Onset Date Resolution Status Cancer of upper lobe of left lung acute Cancer of upper lobe of left lung acute Cancer of upper lobe of left lung acute Cancer of upper lobe of left lung acute Cancer of upper lobe of left lung acute Cancer of upper lobe of left lung acute Cancer of upper lobe of left lung acute Cancer of upper lobe of left lung acute Cancer of upper lobe of left lung acute [facility] Work Phone: History and physical note Author Isreal Carvalho [facility] July 22, 2023 12:02pm Note Date/Time July 22, 2023 1 2:03pm [facility] Medical Records Department [address] [place] [address] History & Physical Exam 07/22/23 1202 MR#: [id number] Acct: [id number] Name: KAELYN POWERS Rep #:[id number] : 1955 67 From: Isreal cross MD PCP: Dr. Sharif Christianson MD Status:[facility] Location: [place] [address] History and Physical Date of Admission: 07/22/23 Intake Vital Signs 07/17/2308:51 07/18/2310:11 Height 5 ft 2 in 5 ft 2 in Weight: 191 lb 7 oz 189 lb 8 oz BMI 35.0 34.6 BP 124/84 H 119/60 Blood Pressure Location Lt brachial Rt brachial Position Sitting Sitting Respiration 18 18 Pulse 59 L 63 Pulse Source Monitor Monitor Temp 98.1 F 97.2 F L Temp Source Temporal Pulse Oximetry (%) 97 95 Oxygen Delivery Method room air room air Intake Visit Reasons: PORT PLACEMENT Chief Complaint: Port placement consult Plant Control 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 Required: No Accompanied by: Is patient in pain?: No Allergies oxycodone [From Percocet] Allergy (Intermediate, Verified 07/18/23 10:13) Itching Medications oxybutynin chloride 15 mg tablet,extended release 24 hr 15 mg PO DAILY bladder 10/01/21 [History Confirmed 07/18/23] acetaminophen 500 mg tablet 1,000 mg PO Q6H PRN Pain 04/05/22 [History Confirmed 07/18/23] metformin 1,000 mg tablet 1,000 mg PO BID dm 10/01/22 [History Confirmed 07/18/23] bisacodyl 5 mg tablet 5 mg PO QHS PRN constipation 01/29/23 [History Confirmed 07/18/23] melatonin 5 mg tablet 5 mg PO HS PRN sleep 01/29/23 [History Confirmed 07/18/23] sennosides 8.6 mg tablet (senna) 8.6 mg PO DAILY PRN constipation 01/29/23 [History Confirmed 07/18/23] bupropion HCl 150 mg tablet,12 hr sustained-release 150 mg PO Q12H 06/11/23 [History Confirmed 07/18/23] nicotine 21 mg/24 hr daily transdermal patch 1 patch transdermal Q24H 06/11/23 [History Confirmed 07/18/23] aspirin 81 mg tablet,delayed release 81 mg PO BREAKFAST #90 tabs 07/14/23 [Rx Confirmed 07/18/23] atorvastatin 40 mg tablet 40 mg PO QHS #90 tabs 07/14/23 [Rx Confirmed 07/18/23] clopidogrel 75 mg tablet 75 mg PO DAILY #90 tabs 07/14/23 [Rx Confirmed 07/18/23] metoprolol tartrate 25 mg tablet 12.5 mg (1/2 x 25 mg) PO BID #90 tabs 07/14/23 [Rx Confirmed 07/18/23] lidocaine-prilocaine 2.5 %-2.5 % topical cream 1 applic topical ONCE PRN port access 30 days #30 grams 07/17/23 [Rx Confirmed 07/18/23] ondansetron 8 mg disintegrating tablet 8 mg PO Q8H PRN nausea and vomiting #30 tabs 07/17/23 [Rx Confirmed 07/18/23] PFSH Medical History Abnormal gastrointestinal PET scan Adenomatous polyps Anemia Anxiety Arthritis Atherosclerosis of coronary artery of wales heart without angina pectoris Back pain Black tarry stools Bladder disease Cancer Cancer of upper lobe of left lung Cardiology follow-up encounter Claudication Dietary restriction Diverticulosis Encounter for education Essential (primary) hypertension Fatigue Former smoker Gastritis GERD (gastroesophageal reflux disease) High cholesterol History of echocardiogram History of edema History of heart attack History of Holter monitoring History of stress test Hoarseness Hyperlipidemia Injury of head and neck Iron deficiency anemia Iron deficiency anemia due to chronic blood loss Leg cramps Low iron Lung mass Marijuana use Nicotine dependence Obesity Peripheral vascular occlusive disease Rectal bleeding Rheumatoid arthritis Smoker Subdural hematoma Subdural hemorrhage Type 2 diabetes mellitus Urinary incontinence Wears dentures Wears glasses Surgical History History of angioplasty of peripheral vessel History of cardiac catheterization History of cholecystectomy History of coronary artery stent placement (10/10/15) History of esophagogastroduodenoscopy (EGD) History of hysterectomy History of left heart catheterization (10/09/15) Hx of colonoscopy Hx of heart artery stent S/P craniotomy S/P craniotomy Family History Sister Diabetes Breast cancerBrother Cancer throat Hypertension Social History household members: none and other details: She has 2 sons who live locally and can help her and also has 2 sisters housing: apartment number of children: 2 current occupational status: employed 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 mary beth/jainism: Gnosticism seatbelt use: always do you feel safe at home: Yes HPI HPI HPI: Patient is a 67-year-old female here with the lung cancer of the left side and needs port for treatment. ROS General General: Yes fatigue; No weight change, appetite, colon cancer, breast cancer or weakness HEENT HEENT: No difficulty swallowing, eye injury, eye surgery, swollen glands or hoarseness Endo Endocrine: Yes diabetes mellitus; No thyroid disease, thyroid cancer, Hair loss, heat intolerance or cold intolerance Skin Skin: No rash or changing moles Breast Breast: No left breast lump, right breast lump, nipple discharge, breast pain, abnormal mammogram, abnormal US or breast enlargement Musc Musculoskeletal: Yes arthritis and rheumatoid arthritis; No back problems, gout or joint pain Cardio Cardiovascular: Yes heart attack and heart stent; No murmur, pacemaker, heart disease, atrial fibrillation, high blood pressure, palpitations, shortness of breat with exertion or chest pain Psych Psychiatric: No depression, anxiety or hearing voices Resp Respiratory: No shortness of breath, No sleep apnea, No cough, No COPD, No asthma, No emphysema and No wheezing Gastro Gastrointestinal: No abdominal pain, No nausea or vomiting, No diarrhea, Yes constipation, No blood in stool, Yes acid reflux, No hemorrhoids, No ulcers, Yesgallbladder problem and No black,tarry stools Michael Hematologic: Yes blood thinners, No blood disorders, No bleeding, No anemia and No blood clots Neuro Neurologic: No system reviewed and no additional complaints, except as documented, No as per HPI, No abnormal gait, No abnormal hearing, No abnormal movements, No abnormal speech, No behavioral changes, No burning sensations, No confusion, No convulsions, No disequilibrium, No dizziness, No localized weakness, No frequent falls, No headache(s), No lack of coordination, No loss ofvision, No memory loss, No numbness, No other visual disturbances, No radicular pain, No restless legs, No sensory deficit, No syncope, No tingling, No tremor(s), No weakness and No other Exam Const General: cooperative Orientation: alert and oriented x3 HENMT Head: normal to inspection Neck Neck: normal visual inspection and full ROM Chest Chest palpation & inspection: normal inspection of the chest Resp Effort & Inspection: normal respiratory effort Auscultation: clear to auscultation bilaterally Cardio Rate: regular rate Rhythm: regular rhythm GI Inspection: non-distended Palpation: soft and nontender Skin General: no rashes or lesions noted Neuro General: patient alert and patient oriented x3 Extrem General: full ROM Psych Appearance: grossly normal Mental Status: mental status grossly normal Assessment and Plan Assessment and Plan (1) Encounter for adjustment and management of vascular access device: Status: Acute Plan: I discussed chest replacement with the patient in detail. I discussed the risksincluding allergy to bleeding, infection, pneumothorax or blood clot. Patient or stands the risks and is willing to proceed. She will hold her blood thinnersin preparation for surgery. Isreal Carvalho MD Pager: [facility] [address] [place] [address], [address] [place] [address] Office: I have examined the patient and the H&P has been reviewed. There are no clinicalchanges since date of exam. 07/22/23 1202 <Electronically signed by Isreal Carvalho MD> Cosigner Signature (if applicable): CC: Dr. Isreal Carvalho MD; Dr. Sharif Christianson MD~ Signed [facility] Work Phone: Reason for referral (narrative)* Outpatient Procedure (Routine) - Pending Review Specialty Diagnoses / Procedures Referred By Contac t Ref[facility] Diagnoses Intracranial hemorrhage (HCC) Acquired skull defect Procedures ECG COMPLETE ECG ROUTINE ECG W/LEAST 12 LDS W/I&R Kacy Glez, TRES.APPLICATIONS INTERN [address] [place] [address] [facility] [address] [place] [address] Referral ID Status Reason Start Date Expiration Date Visits Requested Visits Authorized [id number] Pending Review Auto-Generat ed Referral 01/15/2022 01/15/2023 1 1 [facility] for referral (narrative)No reason for referral information [facility] Work Phone: Summary Purpose Family History No Family History Records Found Relationship Condition Age at Onset Recorded Date/T vern sister Diabetes mellitus Unknown Malignant neoplasm of breast Unknown brother Malignant neoplasm Unknown Relationship Condition Age at Onset Recorded Date/T vern sister Diabetes mellitus Unknown Malignant neoplasm of breast Unknown brother Malignant neoplasm Unknown Hypertension Unknown Advance Directives No Advanced Directives Records FoundDocuments on File Type Date Recorded 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 Advance Directive(s) 10/28/2021 3:03 AM Advance Directive(s) 10/21/2019 10:22 AM Advance Directive(s) 07/05/2019 6:53 AM Latest Code Status on File Code Status Date Activated Date Inactivated Comments Full Code 11/03/2021 10:46 AM Full Code Order Discussed With: Surrogate Dannyisi on Maker Advance Directive Response Recorded Date/ Time Advance Directives No June 18, 2018 10:36am Living Will No October 27, 2021 10:32pm Power of Groundsman No October 27 10:32pm Documents on File Type Date Recorded 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 Advance Directive(s) 10/28/2021 3:03 AM Advance Directive(s) 10/21/2019 10:22 AM Advance Directive(s) 07/05/2019 6:53 AM Latest Code Status on File Code Status Date Activated Date Inactivated Comments Full Code 11/03/2021 10:46 AM 11/14/2021 7:06 PM Latest Code Status on File Code Status Date Activated Date Inactivated Comments Full Code 11/03/2021 10:46 AM 11/14/2021 7:06 PM Documents on File Type Date Recorded 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 Advance Directive(s) 02/01/2022 6:37 AM Advance Directive(s) 10/28/2021 3:03 AM Advance Directive(s) 10/21/2019 10:22 AM Advance Directive(s) 07/05/2019 6:53 AM Advance Directive Response Recorded Date/ Time Advance Directives No June 18, 2018 10:36am Living Will No March 28 10:34am Power of Groundsman No March 28 10:34am Latest Code Status on File Code Status Date Activated Date Inactivated Comments Full Code 04/03/2022 7:10 PM 04/05/2022 6:21 PM Full Code Order Discussed With: Patient Full Code 11/03/2021 10:46 AM 11/14/2021 7:06 PM Latest Code Status on File Code Status Date Activated Date Inactivated Comments Full Code 04/03/2022 7:10 PM 04/05/2022 6:21 PM Full Code 11/03/2021 10:46 AM 11/14/2021 7:06 PM Advance Directive Response Recorded Date/ Time Name of Medical Power of Groundsman SON- VENTURA April 23, 2022 10:55am Advance Directives No June 18, 2018 10:36am Living Will Yes April 23 10:55am Power of Groundsman Yes April 23, 2022 10:55am Advance Directive Response Recorded Date/ Time Advance Directives No June 18, 2018 10:36am Living Will No April 08 2:39pm Power of Groundsman No April 08 2:39pm Advance Directive Response Recorded Date/ Time Name of Medical Power of Groundsman SON- VENTURA April 23, 2022 9:55am Advance Directives No June 18, 2018 9:36am Living Will Yes April 23 9:55am Power of Groundsman Yes April 23, 2022 9:55am Advance Directive Response Recorded Date/ Time Advance Directives No June 18, 2018 9:36am Living Will Yes April 23 9:55am Power of Groundsman Yes April 23, 2022 9:55am Advance Directive Response Recorded Date/ Time Advance Directives No June 18, 2018 10:36am Living Will Yes April 23 10:55am Power of Groundsman Yes April 23, 2022 10:55am Advance Directive Response Recorded Date/ Time Advance Directives No June 18, 2018 10:36am Living Will No June 11 3:14pm Power of Groundsman No June 11, 2023 3:14pm Advance Directive Response Recorded Date/ Time Advance Directives No June 18, 2018 10:36am Living Will No June 11 7:53pm Power of Groundsman No June 11, 2023 7:53pm Advance Directive Response Recorded Date/ Time Advance Directives No June 7:11am Living Will No July 17 023 12:57pm Power of Groundsman No July 17, 2023 12:57pm Advance Directive Response Recorded Date/ Time Advance Directives No July 9:52am Living Will No July 28, 023 9:52am Power of Groundsman No July 28, 2023 9:52am Advance Directive Response Recorded Date/ Time Advance Directives No September 01, 2023 10:25am Living Will No September 01 10:25am Power of Groundsman No September 01, 2023 10:25am Advance Directive Response Recorded Date/ Time Advance Directives No October 29, 024 10:30am Living Will No October 30, 2023 10:30am Power of Groundsman No October 29 10:30am Advance Directive Response Recorded Date/ Time Living Will No October 30, 2023 10:30am Do you have a Healthcare Power of Groundsman? No October 30, 2023 10:30am Living Will No November 23, 2024 10:40am Do you have a Healthcare Power of Groundsman? No November 23, 2024 10:40am Advance Directives No November 23 10:40am Advance Directive Response Recorded Date/ Time Living Will No December 14, 2024 11:42am Do you have a Healthcare Power of Groundsman? No December 14, 2024 11:42am Advance Directives No December 14 11:42am Advance Directive Response Recorded Date/ Time Living Will No January 04, 2025 2 :16pm Do you have a Healthcare Power of Groundsman? No January 04, 2025 2:16pm Advance Directives No January 04 2:16pm Advance Directive Response Recorded Date/ Time Living Will No February 22, 2025 1 2:20pm Do you have a Healthcare Power of Groundsman? No February 22, 2025 12:20pm Advance Directives No February 22 12:20pm Advance Directive Response Recorded Date/ Time Living Will No March 15, 2025 12:55pm Do you have a Healthcare Power of Groundsman? No March 15, 2025 12:55pm Advance Directives No March 15 12:55pm Reason for Referral Specialty Diagnoses / Procedures Referred By Contac t Referred To Contact CT IMAGING Diagnoses Intracranial hemorrhage (HCC) Procedures CT BRAIN WO IVCON CT HEAD/BRAIN W/O CONTRAST MATERIAL Loan Rivas, CHINOC [address] [place] [address] Ct Imaging Referral ID Status Reason Start Date Expiration Date Visits Requested Visits Authorized [id number] Pending Review Auto-Generat ed Referral 11/10/2021 12/10/2022 1 1 Specialty Diagnoses / Procedures Referred By Contac t Referred To Contact CT IMAGING Diagnoses Intracranial hemorrhage (HCC) Procedures CT BRAIN WO IVCON CT HEAD/BRAIN W/O CONTRAST MATERIAL Kacy Glez, RN WOUND CARE.APPLICATIONS INTERN [address] [place] [address] Ct Imaging Referral ID Status Reason Start Date Expiration Date V isits Requested Visits Authorized [id number] Closed Auto-Generate d Referral 12/25/2021 02/25/2022 1 1 Specialty Diagnoses / Procedures Referred By Contac t Referred To Contact CT IMAGING Diagnoses Subdural hemorrhage (HCC) Procedures CT BRAIN WO IVCON CT HEAD/BRAIN W/O CONTRAST MATERIAL Jitendra Apple, RN WOUND CARE.APPLICATIONS INTERN [address] [place] [address] Ct Imaging Referral ID Status Reason Start Date Expiration Date V isits Requested Visits Authorized [id number] Closed Auto-Generate d Referral 04/12/2022 05/05/2023 1 1 Referral ID Status Reason Start Date Expiration Date Visits Requested Visits Authorized [id number] Waiting for Response Auto-Generat ed Referral 05/07/2022 06/06/2023 1 1 Referral ID Status Reason Start Date Expiration Date V isits Requested Visits Authorized [id number] Closed Auto-Generate d Referral 05/07/2022 07/07/2022 1 1 Chief Complaint and Reason for Visit Chief Complaint NODULES 3 MO - LABS PRIOR 1 Y FU fall 2 MO - LABS (OVERDUE FOR F/U) EORDER TBI,SUBDURAL HEM & SUBARACNOID HEM/RX HERE LABS Reason for Visit Adenomatous polyps Diverticulosis Gastritis Iron deficiency anemia due to chronic blood loss Left upper lobe pulmonary nodule Atherosclerosis of coronary artery of [place] heart without angina pectoris Essential (primary) hypertension Hyperlipidemia Peripheral vascular occlusive disease Adenomatous polyps Diverticulosis Gastritis Iron deficiency anemia due to chronic blood loss Left upper lobe pulmonary nodule Chief Complaint 3 MO - LABS PRIOR 1 Y FU fall 2 MO - LABS (OVERDUE FOR F/U) EORDER LABS TBI,SUBDURAL HEM & SUBARACNOID HEM/RX HERE Reason for Visit Adenomatous polyps Diverticulosis Gastritis Iron deficiency anemia due to chronic blood loss Left upper lobe pulmonary nodule Atherosclerosis of coronary artery of [place] heart without angina pectoris Essential (primary) hypertension Hyperlipidemia Peripheral vascular occlusive disease Adenomatous polyps Diverticulosis Gastritis Iron deficiency anemia due to chronic blood loss Left upper lobe pulmonary nodule Chief Complaint 2 MO - LABS (OVERDUE FOR F/U) EORDER TBI,SUBDURAL HEM & SUBARACNOID HEM/RX HERE 4 M FU 3 MO - LABS LABS LUNG NODULE Reason for Visit Adenomatous polyps Diverticulosis Gastritis Iron deficiency anemia due to chronic blood loss Left upper lobe pulmonary nodule Atherosclerosis of coronary artery of [place] heart without angina pectoris Essential (primary) hypertension Hyperlipidemia Peripheral vascular occlusive disease Adenomatous polyps Diverticulosis Gastritis Iron deficiency anemia due to chronic blood loss Left upper lobe pulmonary nodule Chief Complaint 2 MO - LABS (OVERDUE FOR F/U) EORDER TBI,SUBDURAL HEM & SUBARACNOID HEM/RX HERE 4 M FU 3 MO - LABS LUNG NODULE LABS headache Reason for Visit Adenomatous polyps Diverticulosis Gastritis Iron deficiency anemia due to chronic blood loss Left upper lobe pulmonary nodule Atherosclerosis of coronary artery of [place] heart without angina pectoris Essential (primary) hypertension Hyperlipidemia Peripheral vascular occlusive disease Adenomatous polyps Diverticulosis Gastritis Iron deficiency anemia due to chronic blood loss Left upper lobe pulmonary nodule Chief Complaint TBI,SUBDURAL HEM & S UBARACNOID HEM/RX HERE 4 M FU 3 MO - LABS LUNG NODULE LABS headache SDH/craniotomy SDH SDH SDH SDH SDH SDH SDH/craniotomy LIGHTHEADED Reason for Visit Atherosclerosis of c oronary artery of [place] heart without angina pectoris Essential (primary) hypertension Hyperlipidemia Peripheral vascular occlusive disease Iron deficiency anemia due to chronic blood loss Physical debility S/P craniotomy Subdural hematoma Type 2 diabetes mellitus Urinary incontinence Acute on chronic blood loss anemia Atherosclerosis of coronary artery of [place] heart without angina pectoris Essential (primary) hypertension History of coronary artery stent placement Hyperlipidemia Iron deficiency anemia due to chronic blood loss Nicotine dependence Peripheral vascular occlusive disease Chief Complaint TBI,SUBDURAL HEM & S UBARACNOID HEM/RX HERE 4 M FU 3 MO - LABS LUNG NODULE LABS headache SDH SDH SDH SDH SDH SDH SDH Reason for Visit Atherosclerosis of c oronary artery of [place] heart without angina pectoris Essential (primary) hypertension Hyperlipidemia Peripheral vascular occlusive disease Iron deficiency anemia due to chronic blood loss Physical debility S/P craniotomy Subdural hematoma Type 2 diabetes mellitus Urinary incontinence Acute on chronic blood loss anemia Atherosclerosis of coronary artery of [place] heart without angina pectoris Essential (primary) hypertension History of coronary artery stent placement Hyperlipidemia Iron deficiency anemia due to chronic blood loss Nicotine dependence Peripheral vascular occlusive disease Chief Complaint TBI,SUBDURAL HEM & S UBARACNOID HEM/RX HERE 4 M FU 3 MO - LABS LUNG NODULE LABS headache SDH/craniotomy SDH SDH SDH SDH SDH SDH SDH/craniotomy Reason for Visit Atherosclerosis of c oronary artery of [place] heart without angina pectoris Essential (primary) hypertension Hyperlipidemia Peripheral vascular occlusive disease Iron deficiency anemia due to chronic blood loss Physical debility S/P craniotomy Subdural hematoma Type 2 diabetes mellitus Urinary incontinence Acute on chronic blood loss anemia Atherosclerosis of coronary artery of [place] heart without angina pectoris Essential (primary) hypertension History of coronary artery stent placement Hyperlipidemia Iron deficiency anemia due to chronic blood loss Nicotine dependence Peripheral vascular occlusive disease Chief Complaint 3 MO - LABS LUNG NODULE headache SDH/craniotomy SDH SDH SDH SDH SDH SDH SDH/craniotomy LIGHTHEADED F/U 1 MO AFTER VENOFER - LABS LABS 4 M FU PALP SDH,DEBILITY/RX HERE Reason for Visit Adenomatous polyps Diverticulosis Gastritis Iron deficiency anemia due to chronic blood loss Left upper lobe pulmonary nodule Physical debility S/P craniotomy Subdural hematoma Acute on chronic blood loss anemia Iron deficiency anemia due to chronic blood loss Nicotine dependence Adenomatous polyps Diverticulosis Gastritis Iron deficiency anemia due to chronic blood loss Left upper lobe pulmonary nodule Palpitations Chief Complaint SDH/craniotomy SDH SDH SDH SDH SDH/craniotomy LIGHTHEADED F/U 1 MO AFTER VENOFER - LABS 4 M FU PALP SDH,DEBILITY/RX HERE 3 MO - LABS LABS Reason for Visit Physical debility S/P craniotomy Subdural hematoma Acute on chronic blood loss anemia Iron deficiency anemia due to chronic blood loss Nicotine dependence Adenomatous polyps Diverticulosis Gastritis Iron deficiency anemia due to chronic blood loss Left upper lobe pulmonary nodule Palpitations Iron deficiency anemia due to chronic blood loss Left upper lobe pulmonary nodule Chief Complaint LIGHTHEADED F/U 1 MO AFTER VENOFER - LABS 4 M FU PALP SDH,DEBILITY/RX HERE 3 MO - LABS LABS Reason for Visit Adenomatous polyps Diverticulosis Gastritis Iron deficiency anemia due to chronic blood loss Left upper lobe pulmonary nodule Palpitations Iron deficiency anemia due to chronic blood loss Left upper lobe pulmonary nodule Chief Complaint 3 MO - LABS LABS 4 M FU CLAUDICATION Reason for Visit Iron deficiency anem ia due to chronic blood loss Left upper lobe pulmonary nodule Claudication Chief Complaint 4 M FU CLAUDICATION ATHEROSCLEROSIS BILAT LEGS, PAD Reason for Visit Claudication Chief Complaint ATHEROSCLEROSIS BILA T LEGS, PAD 6 MO - LABS LABS SCREENING Reason for Visit Iron deficiency anem ia due to chronic blood loss Left upper lobe pulmonary nodule Chief Complaint 6 MO - LABS LABS SCREENING PULMONARY NODULE Reason for Visit Iron deficiency anem ia due to chronic blood loss Left upper lobe pulmonary nodule Chief Complaint 6 MO - LABS LABS SCREENING PULMONARY NODULE Solitary pulmonary nodule Reason for Visit Iron deficiency anem ia due to chronic blood loss Left upper lobe pulmonary nodule Chief Complaint SCREENING PULMONARY NODULE Solitary pulmonary nodule SOLITARY PULMONARY NODULE NSTEMI, COVID 19 Chief Complaint SCREENING PULMONARY NODULE Solitary pulmonary nodule SOLITARY PULMONARY NODULE NSTEMI, COVID 19, ACUTE ENCEPHALOPATHY NSTEMI, COVID 19, ACUTE ENCEPHALOPATHY NSTEMI, COVID 19, ACUTE ENCEPHALOPATHY NSTEMI, COVID 19, ACUTE ENCEPHALOPATHY NSTEMI, COVID 19, ACUTE ENCEPHALOPATHY Reason for Visit Coronary artery dise ase COVID-19 Diabetes Encephalopathy acute NSTEMI, initial episode of care Peripheral arterial disease Chief Complaint PULMONARY NODULE Solitary pulmonary nodule NSTEMI, COVID 19, ACUTE ENCEPHALOPATHY NSTEMI, COVID 19, ACUTE ENCEPHALOPATHY NSTEMI, COVID 19, ACUTE ENCEPHALOPATHY NSTEMI, COVID 19, ACUTE ENCEPHALOPATHY NSTEMI, COVID 19, ACUTE ENCEPHALOPATHY EST PT - NEW LUNG CA CONSULT - LUNG S/P [facility] NSTEMI 06/28/23 POSS HEART CATH SOLITARY PULMONARY NODULE NSTEMI CHEMO ED PORT PLACEMENT Reason for Visit Coronary artery dise ase COVID-19 Diabetes NSTEMI, initial episode of care Peripheral arterial disease Encephalopathy acute 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 Essential (primary) hypertension History of coronary artery stent placement NSTEMI, initial episode of care Cancer of upper lobe of left lung Encounter for education Encounter for adjustment and management of vascular access device NSTEMI, initial episode of care Chief Complaint PULMONARY NODULE Solitary pulmonary nodule NSTEMI, COVID 19, ACUTE ENCEPHALOPATHY NSTEMI, COVID 19, ACUTE ENCEPHALOPATHY NSTEMI, COVID 19, ACUTE ENCEPHALOPATHY NSTEMI, COVID 19, ACUTE ENCEPHALOPATHY NSTEMI, COVID 19, ACUTE ENCEPHALOPATHY EST PT - NEW LUNG CA CONSULT - LUNG S/P [facility] NSTEMI 06/28/23 POSS HEART CATH NSTEMI CHEMO ED PORT PLACEMENT MALIGNANT NEOPLASM OF UPPER LOBE 2WKS LABS [place] SOLITARY PULMONARY NODULE Reason for Visit Coronary artery dise ase COVID-19 Diabetes NSTEMI, initial episode of care Peripheral arterial disease Encephalopathy acute 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 Essential (primary) hypertension History of coronary artery stent placement NSTEMI, initial episode of care Cancer of upper lobe of left lung Encounter for education Encounter for adjustment and management of vascular access device NSTEMI, initial episode of care Cancer of upper lobe of left lung Chief Complaint NSTEMI, COVID 19, AC [place] ENCEPHALOPATHY NSTEMI, COVID 19, ACUTE ENCEPHALOPATHY NSTEMI, COVID 19, ACUTE ENCEPHALOPATHY NSTEMI, COVID 19, ACUTE ENCEPHALOPATHY NSTEMI, COVID 19, ACUTE ENCEPHALOPATHY EST PT - NEW LUNG CA CONSULT - LUNG S/P [facility] NSTEMI 06/28/23 POSS HEART CATH NSTEMI CHEMO ED PORT PLACEMENT MALIGNANT NEOPLASM OF UPPER LOBE 2WKS LABS [place] OTV 1 WK LABS TX OTV 1WK LABS TX9(DR Horne PATIENT) OTV 1WK LABS TX 1 Y FU OTV 1WK LABS TX OTV 1WK LABS TX OTV TOX CHECK - LABS OTV SOLITARY PULMONARY NODULE Reason for Visit Coronary artery dise ase COVID-19 Diabetes NSTEMI, initial episode of care Peripheral arterial disease Encephalopathy acute 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 Essential (primary) hypertension History of coronary artery stent placement NSTEMI, initial episode of care Cancer of upper lobe of left lung Encounter for education Encounter for adjustment and management of vascular access device NSTEMI, initial episode of care 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 Constipation Encounter for chemotherapy management 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 Encounter for chemotherapy management 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 Essential (primary) hypertension History of coronary artery stent placement 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 Chief Complaint OTV 1WK LABS TX9(DR Horne PATIENT) OTV 1WK LABS TX 1 Y FU OTV 1WK LABS TX OTV 1WK LABS TX OTV TOX CHECK - LABS OTV 4 WKS - LABS 1 MONTH F/U POST RT 3 WKS - LABS - CARBO/TAXOL history of pneumonia SOLITARY PULMONARY NODULE Reason for Visit 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 Encounter for chemotherapy management 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 Essential (primary) hypertension History of coronary artery stent placement 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 Chief Complaint OTV 1WK LABS TX OTV TOX CHECK - LABS OTV 4 WKS - LABS 1 MONTH F/U POST RT 3 WKS - LABS - CARBO/TAXOL history of pneumonia SOLITARY PULMONARY NODULE 6 WKS - LABS(DOING WITH PET) - REVIEW PET BLL LUNG NODULES Reason for Visit 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 Chief Complaint Admit Date 1 WK - LABS - GEMZAR August 09, 2024 9:39am 6 M FU August 31, 2024 8 :03am Malignant neoplasm of upper lobe, left b ronchus or August 31, 2024 2:06pm REVIEW SCANS - LABS September 06, 2024 2 :02pm PVD September 20, 2024 9 :52am [place] - LABS - [place]TRU[place] September 7:26am 3WKS LABS [place] October 12, 2024 9:43am 3WKS LABS [place] November 02, 2024 9:3 9am Peripheral vascular disease November 10, 2024 12:49pm 3 WKS - LABS - [place]TRU[place] November 23, 2024 8:36am MED ONC November 23, 2024 8:45 am LUNG CANCER November 30, 2024 7:3 3am Reason for Visit Admit Date Cancer of upper lobe of left lung Decemb er 2023 9:39am Drug induced neutropenia August 09, 2024 9:39am Encounter for chemotherapy management [id number] 9:39am Hypomagnesemia August 09, 2024 9:39am Localized swelling of both lower legs De cember 2023 9:39am B12 deficiency anemia August 09 9:39am Essential (primary) hypertension August 31, 2024 8:03am History of coronary artery stent placeme nt August 31, 2024 8:03am Claudication August 31, 2024 8 :03am Cancer of upper lobe of left lung 2024 2:02pm Cancer of upper lobe of left lung ua 2024 7:26am Encounter for antineoplastic immunothera py September 21, 2024 7:26am Cancer of upper lobe of left lung Februa 2024 9:43am Cancer of upper lobe of left lung November 02, 2024 9:39am Carotid artery disease November 10, 2024 12:49pm Peripheral arterial disease November 10, 2024 12:49pm Varicose veins of both legs with edema M arch 2024 12:49pm Cancer of upper lobe of left lung November 23, 2024 8:36am Encounter for antineoplastic immunothera py November 23, 2024 8:36am Chief Complaint Admit Date REVIEW SCANS - LABS September 06, 2024 2 :02pm PVD September 20, 2024 9 :52am NEW START - LABS - [place] September 7:26am [facility] [place] October 12, 2024 9:43am [facility] [place] November 02, 2024 9:3 9am Peripheral vascular disease November 10, 2024 12:49pm 3 [facility]KS - LABS - [place] November 23, 2024 8:36am LUNG CANCER November 30, 2024 7:3 3am 3 [facility]KS - LABS - [place] - REVIEW SCANS A pril 2024 9:43am 3 [facility]KS - LABS - [place] January 04, 2025 1 2:19pm MED ONC January 04, 2025 12:30 pm Reason for Visit Admit Date Cancer of upper lobe of left lung Januar y 2024 2:02pm Cancer of upper lobe of left lung Februa ry 2024 7:26am Encounter for antineoplastic immunothera py September 21, 2024 7:26am Cancer of upper lobe of left lung Februa 2024 9:43am Cancer of upper lobe of left lung November 02, 2024 9:39am Carotid artery disease November 10, 2024 12:49pm Peripheral arterial disease November 10, 2024 12:49pm Varicose veins of both legs with edema M arch 2024 12:49pm Cancer of upper lobe of left lung November 23, 2024 8:36am Encounter for antineoplastic immunothera py November 23, 2024 8:36am Cancer of upper lobe of left lung December 14, 2024 9:43am Cancer of upper lobe of left lung January 042024 12:19pm Chief Complaint Admit Date [facility] [place] October 12, 2024 9:43am [facility] [place] November 02, 2024 9:3 9am Peripheral vascular disease November 10, 2024 12:49pm 3 [facility]KS - LABS - [place] November 23, 2024 8:36am LUNG CANCER November 30, 2024 7:3 3am 3 [facility]KS - LABS - [place] - REVIEW SCANS A pril 2024 9:43am 3 [facility]KS - LABS - [place] January 04, 2025 1 2:19pm MED ONC January 25, 2025 12:1 5pm 3 [facility]KS - LABS - [place] January 25, 2025 12:36pm Reason for Visit Admit Date Cancer of upper lobe of left lung Februa 2024 9:43am Cancer of upper lobe of left lung November 02, 2024 9:39am Carotid artery disease November 10, 2024 12:49pm Peripheral arterial disease November 10, 2024 12:49pm Varicose veins of both legs with edema M arch 2024 12:49pm Cancer of upper lobe of left lung November 23, 2024 8:36am Encounter for antineoplastic immunothera py November 23, 2024 8:36am Cancer of upper lobe of left lung December 14, 2024 9:43am Cancer of upper lobe of left lung January 042024 12:19pm Cancer of upper lobe of left lung January 162024 12:36pm Reason for Visit Admit Date Cancer of upper lobe of left lung Februa ry 2024 9:43am Cancer of upper lobe of left lung November 02, 2024 9:39am Carotid artery disease November 10, 2024 12:49pm Peripheral arterial disease November 10, 2024 12:49pm Varicose veins of both legs with edema M arch 2024 12:49pm Encounter for antineoplastic immunothera py November 23, 2024 8:36am Cancer of upper lobe of left lung November 23, 2024 8:36am Cancer of upper lobe of left lung December 14, 2024 9:43am Cancer of upper lobe of left lung January 042024 12:19pm Hypothyroidism January 25, 2025 12:3 6pm Cancer of upper lobe of left lung January 162024 12:36pm Metastasis to lung January 25, 2025 12:3 6pm Chief Complaint Admit Date [facility] [place] November 02, 2024 9:3 9am Peripheral vascular disease November 10, 2024 12:49pm 3 [facility]KS - LABS - [place] November 23, 2024 8:36am LUNG CANCER November 30, 2024 7:3 3am 3 [facility] - LABS - [place] - REVIEW SCANS A pril 2024 9:43am 3 [facility] - LABS - [place] January 04, 2025 1 2:19pm 3 [facility]KS - LABS - [place] January 25, 2025 12:36pm 3 [facility] - LABS - [place] February 22, 2025 1 0:09am MED ONC February 22, 2025 10:15 am Reason for Visit Admit Date Cancer of upper lobe of left lung November 02, 2024 9:39am Carotid artery disease November 10, 2024 12:49pm Peripheral arterial disease November 10, 2024 12:49pm Varicose veins of both legs with edema M arch 2024 12:49pm Encounter for antineoplastic immunothera py November 23, 2024 8:36am Cancer of upper lobe of left lung November 23, 2024 8:36am Cancer of upper lobe of left lung December 14, 2024 9:43am Cancer of upper lobe of left lung January 042024 12:19pm Hypothyroidism January 25, 2025 12:3 6pm Cancer of upper lobe of left lung January 162024 12:36pm Metastasis to lung January 25, 2025 12:3 6pm Encounter for antineoplastic immunothera py February 22, 2025 10:09am Hypothyroidism February 22, 2025 10:09 am Cancer of upper lobe of left lung February 222024 10:09am Metastasis to lung February 22, 2025 10:09 am Chief Complaint Admit Date Peripheral vascular disease November 10, 2024 12:49pm 3 [facility] - LABS - [place] November 23, 2024 8:36am LUNG CANCER November 30, 2024 7:3 3am 3 [facility] - LABS - [place] - REVIEW SCANS A pril 2024 9:43am 3 [facility] - LABS - [place] January 04, 2025 1 2:19pm 3 [facility] - LABS - [place] January 25, 2025 12:36pm 3 [facility] - LABS - [place] February 22, 2025 1 0:09am MED ONC February 22, 2025 10:15 am 4 M FU March 08, 2025 10:0 2am Reason for Visit Admit Date Carotid artery disease November 10, 2024 12:49pm Peripheral arterial disease November 10, 2024 12:49pm Varicose veins of both legs with edema M arch 2024 12:49pm Encounter for antineoplastic immunothera py November 23, 2024 8:36am Cancer of upper lobe of left lung November 23, 2024 8:36am Cancer of upper lobe of left lung December 14, 2024 9:43am Cancer of upper lobe of left lung January 042024 12:19pm Hypothyroidism January 25, 2025 12:3 6pm Cancer of upper lobe of left lung January 162024 12:36pm Metastasis to lung January 25, 2025 12:3 6pm Dizziness on standing February 22, 2025 10: 09am Encounter for antineoplastic immunothera py February 22, 2025 10:09am Hypothyroidism February 22, 2025 10:09 am Cancer of upper lobe of left lung February 222024 10:09am Metastasis to lung February 22, 2025 10:09 am Chief Complaint Admit Date 3 [facility] - LABS - [place] November 23, 2024 8:36am LUNG CANCER November 30, 2024 7:3 3am 3 [facility] - LABS - [place] - REVIEW SCANS A pril 2024 9:43am 3 [facility]KS - LABS - [place] January 04, 2025 1 2:19pm 3 [facility]KS - LABS - [place] January 25, 2025 12:36pm 3 [facility]KS - LABS - [place] February 22, 2025 1 0:09am MED ONC February 22, 2025 10:15 am 4 M FU March 08, 2025 10:0 2am Reason for Visit Admit Date Encounter for antineoplastic immunothera py November 23, 2024 8:36am Cancer of upper lobe of left lung November 23, 2024 8:36am Cancer of upper lobe of left lung December 14, 2024 9:43am Cancer of upper lobe of left lung January 042024 12:19pm Hypothyroidism January 25, 2025 12:3 6pm Cancer of upper lobe of left lung January 162024 12:36pm Metastasis to lung January 25, 2025 12:3 6pm Dizziness on standing February 22, 2025 10: 09am Encounter for antineoplastic immunothera py February 22, 2025 10:09am Hypothyroidism February 22, 2025 10:09 am Cancer of upper lobe of left lung February 222024 10:09am Metastasis to lung February 22, 2025 10:09 am Claudication March 08, 2025 10:0 2am Chief Complaint Admit Date 3 [facility] - LABS - [place] November 23, 2024 8:36am LUNG CANCER November 30, 2024 7:3 3am 3 [facility] - LABS - [place] - REVIEW SCANS A pril 2024 9:43am 3 [facility] - LABS - [place] January 04, 2025 1 2:19pm 3 [facility]KS - LABS - [place] January 25, 2025 12:36pm 3 [facility] - LABS - [place] February 22, 2025 1 0:09am 4 M FU March 08, 2025 10:0 2am 3 [facility] - LABS - [place] March 15, 2025 10:40am MED ONC March 15, 2025 10:4 5am Chief Complaint Admit Date 3 [facility] - LABS - [place] - REVIEW SCANS A pril 2024 9:43am 3 [facility]KS - LABS - [place] January 04, 2025 1 2:19pm 3 [facility]KS - LABS - [place] January 25, 2025 12:36pm 3 [facility]KS - LABS - [place] February 22, 2025 1 0:09am 4 M FU March 08, 2025 10:0 2am 3 [facility]KS - LABS - [place] March 15, 2025 10:40am MED ONC March 15, 2025 10:4 5am Malignant neoplasm of upper lobe, left b ronchus or March 28, 2025 7:38am Reason for Visit Admit Date Cancer of upper lobe of left lung December 14, 2024 9:43am Cancer of upper lobe of left lung January 042024 12:19pm Hypothyroidism January 25, 2025 12:3 6pm Cancer of upper lobe of left lung January 162024 12:36pm Metastasis to lung January 25, 2025 12:3 6pm Dizziness on standing February 22, 2025 10: 09am Encounter for antineoplastic immunothera py February 22, 2025 10:09am Hypothyroidism February 22, 2025 10:09 am Cancer of upper lobe of left lung February 222024 10:09am Metastasis to lung February 22, 2025 10:09 am Claudication March 08, 2025 10:0 2am Encounter for antineoplastic immunothera py March 15, 2025 10:40am Hypothyroidism March 15, 2025 10:4 0am Cancer of upper lobe of left lung February 162024 10:40am Metastasis to lung March 15, 2025 10:4 0am Medications Administered Section Inactive Administered Medications - up to 3 most recent administrations Medication Order MAR Action Action Date Dose Rate Site levETIRAcetam 1,000 mg in NaCl 0.9% 100 mL (KEPPRA) 1,000 mg, INTRAVENOUS, at 600 mL/hr, Administer over 10 Minutes, ONCE, 1 dose, On [place] 03/28/22 at 1400, INFUSE OVER 15 MINUTES - REFRIGERATE - New Bag/Syringe/Bottle 03/28/2022 12:30 PM EDT 1,000 mg 600 mL/hr IV Health Concerns Infection Onset Date Last Indicated Resolved Time COVID-19 Rule-Out 03/28/2022 03/28/2022 03/28/2022 4:15 PM EDT Additional Source Comments INFORMATION SOURCE (unrecogn ized section and content) DATE CREATED AUTHOR 10/27/2019 [facility] DATE CREATED AUTHOR AUTHOR'S ORGANIZ ATION 05/24/2022 [facility] DATE CREATED AUTHOR AUTHOR'S ORGANIZ ATION 05/26/2023 [facility] DATE CREATED AUTHOR AUTHOR'S ORGANIZ ATION 07/12/2023 [facility] DATE CREATED AUTHOR AUTHOR'S ORGANIZ ATION 04/03/2025 [facility] Source Comments (unrecognize d section and content) In the event this informatio n is protected by the Federal Confidentiality of Alcohol and Drug Abuse Patient Records regulations: The Federal rules restrict any use of the information to criminally investigate or prosecute any alcohol or drug abuse patient.[facility] the event this information is protected by the Federal Confidentiality of Alcohol and Drug Abuse Patient Records regulations: The Federal rules restrict any use of the information to criminally investigate or prosecute any alcohol or drug abuse patient.[facility] the event this information is protected by the Federal Confidentiality of Alcohol and Drug Abuse Patient Records regulations: The Federal rules restrict any use of the information to criminally investigate or prosecute any alcohol or drug abuse patient.[facility] the event this information is protected by the Federal Confidentiality of Alcohol and Drug Abuse Patient Records regulations: The Federal rules restrict any use of the information to criminally investigate or prosecute any alcohol or drug abuse patient.[facility] the event this information is protected by the Federal Confidentiality of Alcohol and Drug Abuse Patient Records regulations: The Federal rules restrict any use of the information to criminally investigate or prosecute any alcohol or drug abuse patient.[facility] the event this information is protected by the Federal Confidentiality of Alcohol and Drug Abuse Patient Records regulations: The Federal rules restrict any use of the information to criminally investigate or prosecute any alcohol or drug abuse patient.[facility] the event this information is protected by the Federal Confidentiality of Alcohol and Drug Abuse Patient Records regulations: The Federal rules restrict any use of the information to criminally investigate or prosecute any alcohol or drug abuse patient.[facility] the event this information is protected by the Federal Confidentiality of Alcohol and Drug Abuse Patient Records regulations: The Federal rules restrict any use of the information to criminally investigate or prosecute any alcohol or drug abuse patient.[facility] the event this information is protected by the Federal Confidentiality of Alcohol and Drug Abuse Patient Records regulations: The Federal rules restrict any use of the information to criminally investigate or prosecute any alcohol or drug abuse patient.[facility] the event this information is protected by the Federal Confidentiality of Alcohol and Drug Abuse Patient Records regulations: The Federal rules restrict any use of the information to criminally investigate or prosecute any alcohol or drug abuse patient.[facility] the event this information is protected by the Federal Confidentiality of Alcohol and Drug Abuse Patient Records regulations: The Federal rules restrict any use of the information to criminally investigate or prosecute any alcohol or drug abuse patient.[facility] the event this information is protected by the Federal Confidentiality of Alcohol and Drug Abuse Patient Records regulations: The Federal rules restrict any use of the information to criminally investigate or prosecute any alcohol or drug abuse patient.[facility] the event this information is protected by the Federal Confidentiality of Alcohol and Drug Abuse Patient Records regulations: The Federal rules restrict any use of the information to criminally investigate or prosecute any alcohol or drug abuse patient.[facility] the event this information is protected by the Federal Confidentiality of Alcohol and Drug Abuse Patient Records regulations: The Federal rules restrict any use of the information to criminally investigate or prosecute any alcohol or drug abuse patient.[facility] the event this information is protected by the Federal Confidentiality of Alcohol and Drug Abuse Patient Records regulations: The Federal rules restrict any use of the information to criminally investigate or prosecute any alcohol or drug abuse patient.[facility] the event this information is protected by the Federal Confidentiality of Alcohol and Drug Abuse Patient Records regulations: The Federal rules restrict any use of the information to criminally investigate or prosecute any alcohol or drug abuse patient.[facility] the event this information is protected by the Federal Confidentiality of Alcohol and Drug Abuse Patient Records regulations: The Federal rules restrict any use of the information to criminally investigate or prosecute any alcohol or drug abuse patient.[facility] Care Teams (unrecognized sec tion and content) Back Tender Cylinder Relationship Specialty Start Date End Date Sharif Christianson [address] [place] [address] PCP - General Family Practice 10/21/19 Back Tender Cylinder Relationship Specialty Start Date End Date Sharif Christianson [address] [facility] [address] [place] [address] PCP - General Family Practice 10/21/19 Back Tender Cylinder Relationship Specialty Start Date End Date Meghan Sharif Reyes [address] [facility] [address] [place] [address] PCP - General Family Practice 10/21/19 Back Tender Cylinder Relationship Specialty Start Date End Date Sharif Christianson Edradha [address] [facility] [address] [place] [address] PCP - General Family Practice 10/21/19 Back Tender Cylinder Relationship Specialty Start Date End Date Sharif Christianson [address] [facility] [address] [place] [address] PCP - General Family Practice 10/21/19 Ryan, Eder S [address] [place] [address] Cardiology 01/17/22 Back Tender Cylinder Relationship Specialty Start Date End Date Sharif Christianson [address] [facility] [address] [place] [address] PCP - General Family Practice 10/21/19 Ryan, Eder S [address] [place] [address] Cardiology 01/17/22 Back Tender Cylinder Relationship Specialty Start Date End Date Sharif Christianson [address] [facility] [address] [place] [address] PCP - General Family Practice 10/21/19 Ryan, [place] S [address] [place] [address] Cardiology 01/17/22 Back Tender Cylinder Relationship Specialty Start Date End Date Sharif Christianson [address] [place] [address] PCP - General Family Practice 10/21/19 Ryan, [place] S [address] [place] [address] Cardiology 01/17/22 Back Tender Cylinder Relationship Specialty Start Date End Date Sharif Christianson [address] [place] [address] PCP - General Family Practice 10/21/19 Ryan, [place] S [address] [place] [address] Cardiology 01/17/22 Back Tender Cylinder Relationship Specialty Start Date End Date Shraif Christianson [address] [facility] [address] [place] [address] PCP - General Family Practice 10/21/19 Ryan, [place] S [address] [place] [address] Cardiology 01/17/22 Back Tender Cylinder Relationship Specialty Start Date End Date Sharif Christianson [address] [facility] [address] [place] [address] PCP - General Family Practice 10/21/19 Ryan, [place] S [address] [place] [address] Cardiology 01/17/22 Back Tender Cylinder Relationship Specialty Start Date End Date Sharif Christianson [address] [place] [address] PCP - General Family Practice 10/21/19 Ryan, [place] S [address] [place] [address] Cardiology 01/17/22 Back Tender Cylinder Relationship Specialty Start Date End Date Sharif Christianson [address] [place] [address] PCP - General Family Practice 10/21/19 Ryan, Eder S [address] [place] [address] Cardiology 01/17/22 Back Tender Cylinder Relationship Specialty Start Date End Date Sharif Christianson [address] [place] [address] PCP - General Family Practice 10/21/19 Ryan, [place] S [address] [place] [address] Cardiology 01/17/22 Back Tender Cylinder Relationship Specialty Start Date End Date Sharif Christianson [address] [place] [address] PCP - General Family Medicine 10/21/19 Ryan, [place] S [address] [place] [address] Cardiology 01/17/22 Back Tender Cylinder Relationship Specialty Start Date End Date Sharif Christianson [address] [place] [address] PCP - General Family Medicine 10/21/19 Ryan, [place] S [address] [place] [address] Cardiology 01/17/22 Back Tender Cylinder Relationship Specialty Start Date End Date Sharif Christianson [address] [place] [address] PCP - General Family Medicine 10/21/19 Eder Davis [address] [address] Cardiology 01/17/22 Team Status: Active Member Role Status Dates No Primary Care Physician Family Provider Active Iris Clayton NP-C Primary Care Provider Active Team Status: Inactive Member Role Status Dates Dr. Sharif Christianson MD Primary Care Provider, Referr ing Provider Active Dr. Shannan Waldrop MD Attending Provider Active Team Status: Inactive Member Role Status Dates Dr. Sharif Christianson MD Primary Care Provider, Referr ing Provider Active Ivonne Mendoza PA, PA Attending Provider Active Team Status: Active Member Role Status Dates Iris Clayton NP-C Primary Care Provider Active Dr. Dave Rossi MD Attending Provider Active Team Status: Active Member Role Status Dates Dr. Sharif Christianson MD Primary Care Provider Active Dr. Shannan Waldrop MD Attending Provider, Referrin g Provider Active Team Status: Inactive Member Role Status Dates Dr. Sharif Christianson MD Primary Care Provider Active Iris Clayton NP-Rupal Attending Provider Active Team Status: Inactive Member Role Status Dates Dr. Sharif Christianson MD Primary Care Provider Active Iris Clayton NP-Rupal Attending Provider, Referring Pr ovider Active Team Status: Inactive Member Role Status Dates Iris Clayton NP-Rupal Primary Care Provider Active Ivonne Mendoza PA, PA Attending Provider, Referr ing Provider Active Team Status: Active Member Role Status Dates LANEY Ma Primary Care Provider Active Dr. Dave Rossi MD Attending Provider Active Ivonne Mendoza PA, PA Referring Provider Active Team Status: Inactive Member Role Status Dates LANEY Ma Primary Care Provider Active Dr. Bernabe Kingston MD Attending Provider, Referring Provider Active Team Status: Inactive Member Role Status Dates LANEY Ma Primary Care Provi catina, Attending Provider, Referring Provider Active Team Status: Inactive Member Role Status Dates Dr. Shannan Waldrop MD Attending Provider Active LANEY Ma Primary Care Provider, Referring Provider Active Team Status: Inactive Member Role Status Dates LANEY Ma Primary Care Provider Active Dr. Shannan Waldrop MD Attending Provider, Referrin g Provider Active Team Status: Inactive Member Role Status Alisa Clayton NP-C Primary Care Provider Active Dr. Pinky Winter MD Attending Provider, Referrin g Provider Active Team Status: Active Member Role Status Dates Dr. Sharif Christianson MD Primary Care Provider Active Dr. Shannan Waldrop MD Attending Provider, Referrin g Provider Active Dr. Pinky Winter MD Other Provider Active Team Status: Active Member Role Status Alisa Clayton NP-C Primary Care Provider Active Dr. Williams Nye DO Emergency Provider Active Dr. Nic aCraballo MD Admit Provider, Attending Pro vider Active Team Status: Active Member Role Status Alisa Clayton NP-C Primary Care Provider Active Dr. Williams Nye DO Emergency Provider Active Dr. Nic Caraballo MD Admit Provider, Other Provide r Active Dr. Gwendolyn Petersen MD Attending Provider, Other Provid er Active Dr. Gena Johnson MD Other Provider Active Team Status: Active Member Role Status Alisa Clayton NP-C Primary Care Provider Active Dr. Williams Nye DO Emergency Provider Active Dr. Nic Caraballo MD Admit Provider, Other Provide r Active Dr. Gwendolyn Petersen MD Other Provider Active Dr. Gena Johnson MD Attending Provider, Other Provid er Active Team Status: Active Member Role Status Alisa Clayton NP-C Primary Care Provider Active Dr. Gena Johnson MD Attending Provider Active Team Status: Inactive Member Role Status Alisa Clayton NP-C Primary Care Provider Active Dr. Williams Nye DO Emergency Provider Active Dr. Nic Caraballo MD Admit Provider, Other Provide r Active Dr. Gwendolyn Petersen MD Attending Provider Active Dr. Gena Johnson MD Other Provider Active Team Status: Active Member Role Status Dates No Primary Care Physician Family Provider Active Dr. Sharif Christianson MD Primary Care Provider Active Team Status: Active Member Role Status Alisa Clayton NP-C Primary Care Provider Active Dr. Williams Nye DO Emergency Provider Active Dr. Nic Caraballo MD Admit Provider, Other Provide r Active Dr. Gwendolyn Petersen MD Other Provider Active Dr. Gena Johnson MD Attending Provider , Referring Provider, Other Provider Active Team Status: Inactive Member Role Status Dates Iris Clayton NP-Rupal Primary Care Provider, Referring Provider Active Dr. Shannan Waldrop MD Attending Provider Active Team Status: Inactive Member Role Status Dates LANEY Ma Primary Care Provider, Referring Provider Active Dr. Brennen Roth DO Attending Provider Active Team Status: Inactive Member Role Status Dates Iris Clayton NP-C Primary Care Provider, Referring Provider Active Sharif Nieto PRESS HAND, PRESS HAND-C Attending Provider Active Team Status: Inactive Member Role Status Dates Dr. Sharif Christianson MD Primary Care Provider, Referr ing Provider Active Sabi Lynn PRESS HAND, PRESS HAND-C Attending Provider Active Team Status: Active Member Role Status Dates Dr. Sharif Christianson MD Primary Care Provider Active Dr. Brennen Roth DO Attending Provider, Referring P rovider Active Team Status: Inactive Member Role Status Dates Dr. Sharif Christianson MD Primary Care Provider, Referr ing Provider Active Dr. Isreal Carvalho MD Attending Provider Active Team Status: Active Member Role Status Dates Dr. Sharif Christianson MD Primary Care Provider Active Dr. Isreal Carvalho MD Attending Pr ovider, Referring Provider, Other Provider Active Team Status: Active Member Role Status Dates Dr. Sharif Christianson MD Primary Care Provider Active Dr. Shannan Waldrop MD Attending Provider, Referrin g Provider Active Dr. Pinky Winter MD Other Provider Active Dr. Brennen Roth DO Active Team Status: Inactive Member Role Status Dates Dr. Eder Davis MD Attending Provider, Referring Pro vider Active Dr. Sharif Christianson MD Primary Care Provider Active Team Status: Inactive Member Role Status Dates Dr. Sharif Christianson MD Primary Care Provider Active Dr. Isreal Caravlho MD Attending Provider, Referr ing Provider Active Team Status: Active Member Role Status Dates Dr. Sharif Christianson MD Primary Care Provider Active Dr. Brennen Roth DO Attending Provider Active Team Status: Inactive Member Role Status Dates Dr. Brennen Roth DO Attending Provider, Referring P rovider Active Dr. Sharif Christianson MD Primary Care Provider Active Team Status: Inactive Member Role Status Dates Dr. Sharif Christianson MD Primary Care Provider, Referr ing Provider Active Dr. Nic Hall MD Attending Provider Active Team Status: Inactive Member Role Status Dates Dr. Sharif Christianson MD Primary Care Provider Active Dr. Brennen Roth DO Attending Provider, Referring P rovider Active Team Status: Inactive Member Role Status Dates Dr. Sharif Christianson MD Primary Care Provider Active Dr. Mike Valladares MD Active Dr. Brennen Roth DO Attending Provider, Referring P rovider Active Team Status: Inactive Member Role Status Dates Dr. Sharif Christianson MD Primary Care Provider, Attend ing Provider Active Team Status: Active Member Role Status Dates Dr. Sharif Christianson MD Primary Care Provider, Attend ing Provider Active Team Status: Inactive Member Role Status Dates Dr. Sharif Christianson MD Primary Care Provider, Referr ing Provider Active Dr. Brennen Roth DO Attending Provider Active Team Status: Inactive Member Role Status Dates Dr. Sharif Christianson MD Primary Care Pr ovider, Attending Provider, Referring Provider Active Team Status: Inactive Member Role Status Dates Dr. Sharif Christianson MD Primary Care Provider Active Dr. Shannan Waldrop MD Attending Provider, Referrin g Provider Active Team Status: Active Member Role Status Dates Dr. Sharif Christianson MD Primary Care Provider Active Team Status: Inactive Member Role Status Dates Dr. Sharif Christianson MD Primary Care Provider Active Start: August 09, 2024 End: August 09, 2024 Dr. Sharif Christianson MD Referring Provider Active Start: August 09, 2024 End: August 09, 2024 Sabi Lynn PRESS HAND, PRESS HAND-C Attending Provider Active Start: August 09, 2024 End: August 09, 2024 Team Status: Inactive Member Role Status Dates Dr. Sharif Christianson MD Primary Care Provider Active Start: August 26, 2024 End: August 26, 2024 Dr. Sharif Christianson MD Attending Provider Active Start: August 26, 2024 End: August 26, 2024 Dr. Sharif Christianson MD Referring Provider Active Start: August 26, 2024 End: August 26, 2024 Team Status: Inactive Member Role Status Dates Dr. Sharif Christianson MD Primary Care Provider Active Start: August 31, 2024 End: August 31, 2024 Dr. Sharif Christianson MD Referring Provider Active Start: August 31, 2024 End: August 31, 2024 Ivonne Mendoza PA, PA Attending Provider Active Start: August 31, 2024 End: August 31, 2024 Team Status: Inactive Member Role Status Dates Dr. Sharif Christianson MD Primary Care Provider Active Start: August 31, 2024 End: August 31, 2024 Dr. Sharif Christianson MD Attending Provider Active Start: August 31, 2024 End: August 31, 2024 Dr. Sharif Christianson MD Referring Provider Active Start: August 31, 2024 End: August 31, 2024 Team Status: Inactive Member Role Status Dates Dr. Sharif Christianson MD Primary Care Provider Active Start: August 31, 2024 End: August 31, 2024 Dr. Shannan Waldrop MD Attending Provider Active Start: August 31, 2024 End: August 31, 2024 Dr. Shannan Waldrop MD Referring Provider Active Start: August 31, 2024 End: August 31, 2024 Team Status: Inactive Member Role Status Dates Dr. Sharif Christianson MD Primary Care Provider Active Start: September 06, 2024 End: September 06, 2024 Dr. Sharif Christianson MD Referring Provider Active Start: September 06, 2024 End: September 06, 2024 Dr. Shannan Waldrop MD Attending Provider Active Start: September 06, 2024 End: September 06, 2024 Team Status: Inactive Member Role Status Dates Dr. Sharif Christianson MD Primary Care Provider Active Start: September 20, 2024 End: September 20, 2024 Dr. Sharif Christianson MD Attending Provider Active Start: September 20, 2024 End: September 20, 2024 Dr. Sharif Christianson MD Referring Provider Active Start: September 20, 2024 End: September 20, 2024 Team Status: Inactive Member Role Status Dates Dr. Sharif Christianson MD Primary Care Provider Active Start: September 21, 2024 End: September 21, 2024 Dr. Sharif Christianson MD Referring Provider Active Start: September 21, 2024 End: September 21, 2024 Sabi Lynn PRESS HAND, PRESS HAND-C Attending Provider Active Start: September 21, 2024 End: September 21, 2024 Team Status: Inactive Member Role Status Dates Dr. Sharif Christianson MD Primary Care Provider Active Start: October 12, 2024 End: October 12, 2024 Dr. Sharif Christianson MD Referring Provider Active Start: October 12, 2024 End: October 12, 2024 Dr. Shannan Waldrop MD Attending Provider Active Start: October 12, 2024 End: October 12, 2024 Team Status: Inactive Member Role Status Dates Dr. Sharif Christianson MD Primary Care Provider Active Start: November 02, 2024 End: November 02, 2024 Dr. Sharif Christianson MD Referring Provider Active Start: November 02, 2024 End: November 02, 2024 Sabi Lynn PRESS HAND, PRESS HAND-C Attending Provider Active Start: November 02, 2024 End: November 02, 2024 Team Status: Inactive Member Role Status Dates Dr. Sharif Christianson MD Primary Care Provider Active Start: November 10, 2024 End: November 10, 2024 Dr. Sharif Christianson MD Referring Provider Active Start: November 10, 2024 End: November 10, 2024 DENISE Miranda Attending Provider Active Star t: November 10, 2024 End: November 10, 2024 Team Status: Inactive Member Role Status Dates Dr. Sharif Christianson MD Primary Care Provider Active Start: November 23, 2024 End: November 23, 2024 Dr. Sharif Christianson MD Referring Provider Active Start: November 23, 2024 End: November 23, 2024 aSbi Lynn PRESS HAND, PRESS HAND-C Attending Provider Active Start: November 23, 2024 End: November 23, 2024 Team Status: Active Member Role Status Dates Dr. Sharif Christianson MD Primary Care Provider Active Start: November 23, 2024 Dr. Shannan Waldrop MD Attending Provider Active Start: November 23, 2024 Dr. Shannan Waldrop MD Referring Provider Active Start: November 23, 2024 Dr. Pinky Winter MD Other Provider Active Start: November 23, 2024 Team Status: Inactive Member Role Status Dates Dr. Sharif Christianson MD Primary Care Provider Active Start: November 30, 2024 End: November 30, 2024 Sabi Leah PRESS HAND, PRESS HAND-C Attending Provider Active Start: November 30, 2024 End: November 30, 2024 Sabi Lynn PRESS HAND, PRESS HAND-C Referring Provider Active Start: November 30, 2024 End: November 30, 2024 Team Status: Inactive Member Role Status Dates Dr. Sharif Christianson MD Primary Care Provider Active Start: December 14, 2024 End: December 14, 2024 Dr. Sharif Christianson MD Referring Provider Active Start: December 14, 2024 End: December 14, 2024 Dr. Shannan Waldrop MD Attending Provider Active Start: December 14, 2024 End: December 14, 2024 Team Status: Inactive Member Role Status Dates Dr. Sharif Christianson MD Primary Care Provider Active Start: January 04, 2025 End: January 04, 2025 Dr. Sharif Christianson MD Referring Provider Active Start: January 04, 2025 End: January 04, 2025 Dr. Shannan Waldrop MD Attending Provider Active Start: January 04, 2025 End: January 04, 2025 Team Status: Active Member Role Status Dates Dr. Sharif Christianson MD Primary Care Provider Active Start: January 04, 2025 Dr. Shannan Waldrop MD Attending Provider Active Start: January 04, 2025 Dr. Shannan Waldrop MD Referring Provider Active Start: January 04, 2025 Dr. Pinky Winter MD Other Provider Active Start: January 04, 2025 Team Status: Active Member Role Status Dates Dr. Sharif Christianson MD Primary Care Provider Active Start: January 20, 2025 Dr. Sharif Christianson MD Attending Provider Active Start: January 20, 2025 Dr. Sharif Christianson MD Referring Provider Active Start: January 20, 2025 Team Status: Active Member Role Status Dates Dr. Sharif Christianson MD Primary Care Provider Active Start: January 25, 2025 Dr. Shannan Waldrop MD Attending Provider Active Start: January 25, 2025 Dr. Shannan Waldrop MD Referring Provider Active Start: January 25, 2025 Dr. Pinky Winter MD Other Provider Active Start: January 25, 2025 Team Status: Inactive Member Role Status Dates Dr. Sharif Christianson MD Primary Care Provider Active Start: January 25, 2025 End: January 25, 2025 Dr. Sharif Christianson MD Referring Provider Active Start: January 25, 2025 End: January 25, 2025 Dr. Shannan Waldrop MD Attending Provider Active Start: January 25, 2025 End: January 25, 2025 Team Status: Inactive Member Role Status Dates Dr. Sharif Christianson MD Primary Care Provider Active Start: January 20, 2025 End: January 20, 2025 Dr. Sharif Christianson MD Attending Provider Active Start: January 20, 2025 End: January 20, 2025 Dr. Sharif Christianson MD Referring Provider Active Start: January 20, 2025 End: January 20, 2025 Team Status: Active Member Role/Relationship Status Dates Dr. Sharif Christianson MD Primary Care Provider Active Team Status: Inactive Member Role/Relationship Status Dates Dr. Sharif Christianson MD Primary Care Provider Active Start: November 02, 2024 End: November 02, 2024 Dr. Sharif Christianson MD Referring Provider Active Start: November 02, 2024 End: November 02, 2024 Sabi Lynn PRESS HAND, PRESS HAND-C Attending Provider Active Start: November 02, 2024 End: November 02, 2024 Team Status: Inactive Member Role/Relationship Status Dates Dr. Sharif Christianson MD Primary Care Provider Active Start: November 10, 2024 End: November 10, 2024 Dr. Sharif Christianson MD Referring Provider Active Start: November 10, 2024 End: November 10, 2024 DENISE Miranda Attending Provider Active Star t: November 10, 2024 End: November 10, 2024 Team Status: Inactive Member Role/Relationship Status Dates Dr. Sharif Christianson MD Primary Care Provider Active Start: November 23, 2024 End: November 23, 2024 Dr. Sharif Christianson MD Referring Provider Active Start: November 23, 2024 End: November 23, 2024 Sabi Lynn PRESS HAND, PRESS HAND-C Attending Provider Active Start: November 23, 2024 End: November 23, 2024 Team Status: Inactive Member Role/Relationship Status Dates Dr. Sharif Christianson MD Primary Care Provider Active Start: November 30, 2024 End: November 30, 2024 Sabi Lynn PRESS HAND, PRESS HAND-C Attending Provider Active Start: November 30, 2024 End: November 30, 2024 Sabi Lynn PRESS HAND, PRESS HAND-C Referring Provider Active Start: November 30, 2024 End: November 30, 2024 Team Status: Inactive Member Role/Relationship Status Dates Dr. Sharif Christianson MD Primary Care Provider Active Start: December 14, 2024 End: December 14, 2024 Dr. Sharif Christianson MD Referring Provider Active Start: December 14, 2024 End: December 14, 2024 Dr. Shannan Waldrop MD Attending Provider Active Start: December 14, 2024 End: December 14, 2024 Team Status: Inactive Member Role/Relationship Status Dates Dr. Sharif Christianson MD Primary Care Provider Active Start: January 04, 2025 End: January 04, 2025 Dr. Sharif Christianson MD Referring Provider Active Start: January 04, 2025 End: January 04, 2025 Dr. Shannan Waldrop MD Attending Provider Active Start: January 04, 2025 End: January 04, 2025 Team Status: Inactive Member Role/Relationship Status Dates Dr. Sharif Christianson MD Primary Care Provider Active Start: January 20, 2025 End: January 20, 2025 Dr. Sharif Christianson MD Attending Provider Active Start: January 20, 2025 End: January 20, 2025 Dr. Sharif Christianson MD Referring Provider Active Start: January 20, 2025 End: January 20, 2025 Team Status: Inactive Member Role/Relationship Status Dates Dr. Sharif Christianson MD Primary Care Provider Active Start: January 25, 2025 End: January 25, 2025 Dr. Sharif Christianson MD Referring Provider Active Start: January 25, 2025 End: January 25, 2025 Dr. Shannan Waldrop MD Attending Provider Active Start: January 25, 2025 End: January 25, 2025 Team Status: Inactive Member Role/Relationship Status Dates Dr. Sharif Christianson MD Primary Care Provider Active Start: February 22, 2025 End: February 22, 2025 Dr. Sharif Christianson MD Referring Provider Active Start: February 22, 2025 End: February 22, 2025 Sabi Lynn PRESS HAND, PRESS HAND-C Attending Provider Active Start: February 22, 2025 End: February 22, 2025 Team Status: Active Member Role/Relationship Status Dates Dr. Sharif Christianson MD Primary Care Provider Active Start: February 22, 2025 Dr. Shannan Waldrop MD Attending Provider Active Start: February 22, 2025 Dr. Shannan Waldrop MD Referring Provider Active Start: February 22, 2025 Dr. Pinky Winter MD Other Provider Active Start: February 22, 2025 Team Status: Inactive Member Role/Relationship Status Dates Dr. Sharif Christianson MD Primary Care Provider Active Start: November 10, 2024 End: November 10, 2024 Dr. Sharif Christianson MD Referring Provider Active Start: November 10, 2024 End: November 10, 2024 DENISE Miranda Attending Provider Active Star t: November 10, 2024 End: November 10, 2024 Team Status: Inactive Member Role/Relationship Status Dates Dr. Sharif Christianson MD Primary Care Provider Active Start: November 23, 2024 End: November 23, 2024 Dr. Sharif Christianson MD Referring Provider Active Start: November 23, 2024 End: November 23, 2024 Sabi Lynn PRESS HAND, PRESS HAND-C Attending Provider Active Start: November 23, 2024 End: November 23, 2024 Team Status: Inactive Member Role/Relationship Status Dates Dr. Sharif Christianson MD Primary Care Provider Active Start: November 30, 2024 End: November 30, 2024 Sabi Lynn PRESS HAND, PRESS HAND-C Attending Provider Active Start: November 30, 2024 End: November 30, 2024 Sabi Lynn PRESS HAND, PRESS HAND-C Referring Provider Active Start: November 30, 2024 End: November 30, 2024 Team Status: Inactive Member Role/Relationship Status Dates Dr. Sharif Christianson MD Primary Care Provider Active Start: December 14, 2024 End: December 14, 2024 Dr. Sharif Christianson MD Referring Provider Active Start: December 14, 2024 End: December 14, 2024 Dr. Shannan Waldrop MD Attending Provider Active Start: December 14, 2024 End: December 14, 2024 Team Status: Inactive Member Role/Relationship Status Dates Dr. Sharif Christianson MD Primary Care Provider Active Start: January 04, 2025 End: January 04, 2025 Dr. Sharif Christianson MD Referring Provider Active Start: January 04, 2025 End: January 04, 2025 Dr. Shannan Waldrop MD Attending Provider Active Start: January 04, 2025 End: January 04, 2025 Team Status: Inactive Member Role/Relationship Status Dates Dr. Sharif Christianson MD Primary Care Provider Active Start: January 20, 2025 End: January 20, 2025 Dr. Sharif Christianson MD Attending Provider Active Start: January 20, 2025 End: January 20, 2025 Dr. Sharif Christianson MD Referring Provider Active Start: January 20, 2025 End: January 20, 2025 Team Status: Inactive Member Role/Relationship Status Dates Dr. Sharif Christianson MD Primary Care Provider Active Start: January 25, 2025 End: January 25, 2025 Dr. Sharif Christianson MD Referring Provider Active Start: January 25, 2025 End: January 25, 2025 Dr. Shannan Waldrop MD Attending Provider Active Start: January 25, 2025 End: January 25, 2025 Team Status: Inactive Member Role/Relationship Status Dates Dr. Sharif Christianson MD Primary Care Provider Active Start: February 22, 2025 End: February 22, 2025 Dr. Sharif Christianson MD Referring Provider Active Start: February 22, 2025 End: February 22, 2025 Sabi Lynn PRESS HAND, PRESS HAND-C Attending Provider Active Start: February 22, 2025 End: February 22, 2025 Team Status: Active Member Role/Relationship Status Dates Dr. Sharif Christianson MD Primary Care Provider Active Start: February 22, 2025 Dr. Shannan Waldrop MD Attending Provider Active Start: February 22, 2025 Dr. Shannan Waldrop MD Referring Provider Active Start: February 22, 2025 Dr. Pinky Winter MD Other Provider Active Start: February 22, 2025 Team Status: Inactive Member Role/Relationship Status Dates Dr. Sharif Christianson MD Primary Care Provider Active Start: March 08, 2025 End: March 08, 2025 Dr. Sharif Christianson MD Referring Provider Active Start: March 08, 2025 End: March 08, 2025 DENISE Miranda Attending Provider Active Star t: March 08, 2025 End: March 08, 2025 Team Status: Inactive Member Role/Relationship Status Dates Dr. Sharif Christianson MD Primary Care Provider Active Start: November 23, 2024 End: November 23, 2024 Dr. Sharif Christianson MD Referring Provider Active Start: November 23, 2024 End: November 23, 2024 Sabi Lynn PRESS HAND, PRESS HAND-C Attending Provider Active Start: November 23, 2024 End: November 23, 2024 Team Status: Inactive Member Role/Relationship Status Dates Dr. Sharif Christianson MD Primary Care Provider Active Start: November 30, 2024 End: November 30, 2024 Sabi Lynn PRESS HAND, PRESS HAND-C Attending Provider Active Start: November 30, 2024 End: November 30, 2024 Sabi Lynn PRESS HAND, PRESS HAND-C Referring Provider Active Start: November 30, 2024 End: November 30, 2024 Team Status: Inactive Member Role/Relationship Status Dates Dr. Sharif Christianson MD Primary Care Provider Active Start: December 14, 2024 End: December 14, 2024 Dr. Sharif Christianson MD Referring Provider Active Start: December 14, 2024 End: December 14, 2024 Dr. Shannan Waldrop MD Attending Provider Active Start: December 14, 2024 End: December 14, 2024 Team Status: Inactive Member Role/Relationship Status Dates Dr. Sharif Christianson MD Primary Care Provider Active Start: January 04, 2025 End: January 04, 2025 Dr. Sharif Christianson MD Referring Provider Active Start: January 04, 2025 End: January 04, 2025 Dr. Shannan Waldrop MD Attending Provider Active Start: January 04, 2025 End: January 04, 2025 Team Status: Inactive Member Role/Relationship Status Dates Dr. Sharif Christianson MD Primary Care Provider Active Start: January 20, 2025 End: January 20, 2025 Dr. Sharif Christianson MD Attending Provider Active Start: January 20, 2025 End: January 20, 2025 Dr. Sharif Christianson MD Referring Provider Active Start: January 20, 2025 End: January 20, 2025 Team Status: Inactive Member Role/Relationship Status Dates Dr. Sharif Christianson MD Primary Care Provider Active Start: January 25, 2025 End: January 25, 2025 Dr. Sharif Christianson MD Referring Provider Active Start: January 25, 2025 End: January 25, 2025 Dr. Shannan Waldrop MD Attending Provider Active Start: January 25, 2025 End: January 25, 2025 Team Status: Inactive Member Role/Relationship Status Dates Dr. Sharif Christianson MD Primary Care Provider Active Start: February 22, 2025 End: February 22, 2025 Dr. Sharif Christianson MD Referring Provider Active Start: February 22, 2025 End: February 22, 2025 Sabi Lynn PRESS HAND, PRESS HAND-C Attending Provider Active Start: February 22, 2025 End: February 22, 2025 Team Status: Active Member Role/Relationship Status Dates Dr. Sharif Christianson MD Primary Care Provider Active Start: February 22, 2025 Dr. Shannan Waldrop MD Attending Provider Active Start: February 22, 2025 Dr. Shannan Waldrop MD Referring Provider Active Start: February 22, 2025 Dr. Pinky Winter MD Other Provider Active Start: February 22, 2025 Team Status: Inactive Member Role/Relationship Status Dates Dr. Sharif Christianson MD Primary Care Provider Active Start: March 08, 2025 End: March 08, 2025 Dr. Sharif Christianson MD Referring Provider Active Start: March 08, 2025 End: March 08, 2025 DENISE Miranda Attending Provider Active Star t: March 08, 2025 End: March 08, 2025 Team Status: Inactive Member Role/Relationship Status Dates Dr. Sharif Christianson MD Primary Care Provider Active Start: March 08, 2025 End: March 08, 2025 DENISE Miranda Attending Provider Active Star t: March 08, 2025 End: March 08, 2025 DENISE Miranda Referring Provider Active Star t: March 08, 2025 End: March 08, 2025 Team Status: Inactive Member Role/Relationship Status Dates Dr. Sharif Christianson MD Primary Care Provider Active Start: March 08, 2025 End: March 08, 2025 Dr. Sharif Christianson MD Referring Provider Active Start: March 08, 2025 End: March 08, 2025 DENISE Miranda Attending Provider Active Star t: March 08, 2025 End: March 08, 2025 Team Status: Inactive Member Role/Relationship Status Dates Dr. Sharif Christianson MD Primary Care Provider Active Start: March 08, 2025 End: March 08, 2025 DENISE Miranda Attending Provider Active Star t: March 08, 2025 End: March 08, 2025 DENISE Miranda Referring Provider Active Star t: March 08, 2025 End: March 08, 2025 Team Status: Inactive Member Role/Relationship Status Dates Dr. Sharif Christianson MD Primary Care Provider Active Start: March 15, 2025 End: March 15, 2025 Dr. Sharif Christianson MD Referring Provider Active Start: March 15, 2025 End: March 15, 2025 Dr. Nic Hall MD Attending Provider Active S tart: March 15, 2025 End: March 15, 2025 Team Status: Active Member Role/Relationship Status Dates Dr. Sharif Christianson MD Primary Care Provider Active Start: March 15, 2025 Dr. Shannan Waldrop MD Attending Provider Active Start: March 15, 2025 Dr. Shannan Waldrop MD Referring Provider Active Start: March 15, 2025 Dr. Pinky Winter MD Other Provider Active Start: March 15, 2025 Team Status: Inactive Member Role/Relationship Status Dates Dr. Sharif Christianson MD Primary Care Provider Active Start: December 14, 2024 End: December 14, 2024 Dr. Sharif Christianson MD Referring Provider Active Start: December 14, 2024 End: December 14, 2024 Dr. Shannan Waldrop MD Attending Provider Active Start: December 14, 2024 End: December 14, 2024 Team Status: Inactive Member Role/Relationship Status Dates Dr. Sharif Christianson MD Primary Care Provider Active Start: January 04, 2025 End: January 04, 2025 Dr. Sharif Christianson MD Referring Provider Active Start: January 04, 2025 End: January 04, 2025 Dr. Shannan Waldrop MD Attending Provider Active Start: January 04, 2025 End: January 04, 2025 Team Status: Inactive Member Role/Relationship Status Dates Dr. Sharif Christianson MD Primary Care Provider Active Start: January 20, 2025 End: January 20, 2025 Dr. Sharif Christianson MD Attending Provider Active Start: January 20, 2025 End: January 20, 2025 Dr. Sharif Christianson MD Referring Provider Active Start: January 20, 2025 End: January 20, 2025 Team Status: Inactive Member Role/Relationship Status Dates Dr. Sharif Christianson MD Primary Care Provider Active Start: January 25, 2025 End: January 25, 2025 Dr. Sharif Christianson MD Referring Provider Active Start: January 25, 2025 End: January 25, 2025 Dr. Shannan Waldrop MD Attending Provider Active Start: January 25, 2025 End: January 25, 2025 Team Status: Inactive Member Role/Relationship Status Dates Dr. Sharif Christianson MD Primary Care Provider Active Start: February 22, 2025 End: February 22, 2025 Dr. Sharif Christianson MD Referring Provider Active Start: February 22, 2025 End: February 22, 2025 Sabi Lynn PRESS HAND, PRESS HAND-C Attending Provider Active Start: February 22, 2025 End: February 22, 2025 Team Status: Inactive Member Role/Relationship Status Dates Dr. Sharif Christianson MD Primary Care Provider Active Start: March 08, 2025 End: March 08, 2025 Dr. Sharif Christianson MD Referring Provider Active Start: March 08, 2025 End: March 08, 2025 DENISE Miranda Attending Provider Active Star t: March 08, 2025 End: March 08, 2025 Team Status: Inactive Member Role/Relationship Status Dates Dr. Sharif Christianson MD Primary Care Provider Active Start: March 08, 2025 End: March 08, 2025 DENISE Miranda Attending Provider Active Star t: March 08, 2025 End: March 08, 2025 DENISE Miranda Referring Provider Active Star t: March 08, 2025 End: March 08, 2025 Team Status: Inactive Member Role/Relationship Status Dates Dr. Sharif Christianson MD Primary Care Provider Active Start: March 15, 2025 End: March 15, 2025 Dr. Sharif Christianson MD Referring Provider Active Start: March 15, 2025 End: March 15, 2025 Dr. Nic Hall MD Attending Provider Active S tart: March 15, 2025 End: March 15, 2025 Team Status: Active Member Role/Relationship Status Dates Dr. Sharif Christianson MD Primary Care Provider Active Start: March 15, 2025 Dr. Shannan Waldrop MD Attending Provider Active Start: March 15, 2025 Dr. Shannan Waldrop MD Referring Provider Active Start: March 15, 2025 Dr. Pinky Winter MD Other Provider Active Start: March 15, 2025 Team Status: Inactive Member Role/Relationship Status Dates Dr. Sharif Christianson MD Primary Care Provider Active Start: March 28, 2025 End: March 28, 2025 Dr. Shannan Waldrop MD Attending Provider Active Start: March 28, 2025 End: March 28, 2025 Dr. Shannan Waldrop MD Referring Provider Active Start: March 28, 2025 End: March 28, 2025 Goals (unrecognized section and content) Goals may be documented in a n alternate sectionGoals may be documented in an alternate sectionGoals may be documented in an alternate sectionGoals may be documented in an alternate sectionGoals may be documented in an alternate sectionGoals may be documented in an alternate sectionGoals may be documented in an alternate sectionGoals may be documented in an alternate sectionGoals may be documented in an alternate sectionGoals may be documented in an alternate sectionGoals may be documented in an alternate sectionGoals may be documented in an alternate sectionGoals may be documented in an alternate sectionGoals may be documented in an alternate sectionGoals may be documented in an alternate sectionGoals may be documented in an alternate sectionGoals may be documented in an alternate sectionGoals may be documented in an alternate sectionGoals may be documented in an alternate sectionGoals may be documented in an alternate sectionGoals may be documented in an alternate sectionGoals may be documented in an alternate sectionGoals may be documented in an alternate sectionGoals may be documented in an alternate sectionGoals may be documented in an alternate sectionGoals may be documented in an alternate sectionGoals may be documented in an alternate section Reason for Visit (unrecogniz ed section and content) Reason Comments Established Patient Specialty Diagnoses / Procedures Referred By Shweta t Referred To Contact CT IMAGING Diagnoses Intracranial hemorrhage (HCC) Procedures CT BRAIN WO IVCON CT HEAD/BRAIN W/O CONTRAST MATERIAL Kacy Glez, TRES.[employer] INTERN [address] [place] [address] Ct Imaging Referral ID Status Reason Start Date Expiration Date V isits Requested Visits Authorized [id number] Closed Auto-Generate d Referral 12/25/2021 02/25/2022 1 1 Reason Comments Follow Up Phone Call All Clear Reason Comments Established Patient post op, would like to discuss starting meds prescribed by PCP Reason Comments Critical Care Transport Reason Comments Follow Up Phone Call Post Discharge F/U - attempt made. No answer. Reason Comments Post Op Reason Comments Established Patient Post Op 03.28.2022 sx with G K; pt discharged from [facility] [place] on 04.17.2022 Specialty Diagnoses / Procedures Referred By Contac t Referred To Contact CT IMAGING Diagnoses Subdural [facility] (HCC) [facility]/O CONTRAST MATERIAL Jitenrda Apple, RN WOUND CARE.[employer] INTERN [address] [facility] [address] [place] [address] Ct Imaging Referral ID Status Reason Start Date Expiration Date V isits Requested Visits Authorized [id number] Closed Auto-Generate d Referral 04/12/2022 05/05/2023 1 1 Reason Comments Established Patient Referral ID Status Reason Start Date Expiration Date V isits Requested Visits Authorized [id number] Closed Auto-Generate d Referral 05/07/2022 07/07/2022 1 1 FOR RECORDS PERTAINING TO PATIENTS WHO ARE OR HAVE BEEN ENROLLED IN A CHEMICAL DEPENDENCY/SUBSTANCEABUSE PROGRAM, SOME INFORMATION MAY BE OMITTED. This clinical summary was aggregated from multiple sources. Caution should be exercised in using it in the provision of clinical care. This summary normalizes information from multiple sources, and as a consequence, information in this document may materially change the coding, format and clinical context of patient data. In addition, data may be omitted in some cases. CLINICAL DECISIONS SHOULD BE BASED ON THE PRIMARY CLINICAL RECORDS. [employer] [facility]. provides no warranty or guarantee of the accuracy or completeness of information in this document.
== END | disposition home or self-care (01) ==
LOC: CT 06:41
PROVIDERS: PCP Family Medicine; Referring Provider Physician Assistant; Visit Provider Physician Assistant
DX: I70.212 Atherosclerosis of native arteries of extremities with intermittent claudication, left leg (principal)
CPT/HCPCS: 75635; Q9967

== ENCOUNTER → 2025-04-21 | Outpatient (CLI) | payer MEDICARE, SELFPAY ==
[2025-04-21 09:31] LABS: Mucous, Urine 0 SEEN /hpf (<or=2+); Red Blood Cells-Urine 0 SEEN /hpf (0-5); Squamous Epithelial Cells - UA 0 SEEN /hpf (5-10)
[2025-04-21 12:38] LABS: Hematocrit 35.0 % (37-47); Hemoglobin 10.8 g/dL (12.0-15.0); Immature Granulocytes Count 0.030 X10^3/uL (0.0-0.0); Mean Corp Hgb Conc 30.9 g/dL (32-36); Mean Corpuscular Volume 86.8 fL (81-99); Mean Platelet Vol. 9.0 fl (6.2-12.0); NRBC Flagged by Analyzer 0 % (0-5); Platelet Count 317 K/mm3 (150-450); RBC Distribution Width CV 19.8 % (11.6-14.6); RBC Distribution Width SD 62.4 fl (35.1-43.9); Red Blood Count 4.03 M/mm3 (4.2-5.4); White Blood Count 7.1 K/mm3 (4.4-11.0)
[2025-04-21 12:41] LABS: Color, Urine Yellow (Yellow); Glucose, Dipstick Normal (Normal); Ketone-Dipstick Negative (Negative); Leukocyte Esterase-Dipstick 25 /ul (Negative); Nitrite-Dipstick Negative (Negative); Occult Blood-Urine Negative /ul (Negative); Protein-Dipstick 30 mg/dl (Negative); Specific Gravity, Urine 1.020 (1.002-1.030); Urine Bilirubin Dipstick Negative (Negative)
[2025-04-21 13:21] LABS: AST(SGOT) 17 U/L (<=31); Alanine Aminotransfer ALT/SGPT 10 U/L (<=34); Albumin, Serum 3.9 g/dL (3.4-4.8); Alkaline Phosphatase 77 U/L (35-104); Anion Gap 15 (5-15); BUN 11 mg/dL (4-19); BUN/Creat Ratio 13.7 RATIO (10-20); Calcium,Total 8.9 mg/dL (7.6-11.0); Carbon Dioxide 20.1 mmol/L (21.0-32.0); Chloride 102 mmol/L (98-108); Cholesterol 105 mg/dL (<=200); Globulin 3.1 g/dL (2.2-4.2); Glucose 150 mg/dL (70-99); Low Density Lipoprotein Calc. 32 mg/dL; Potassium 4.2 mmol/L (3.3-5.1); Triglycerides 113 mg/dL; Very Low Density Lipoprotein 23 mg/dL (5-40); cholesterol:hdl ratio screen 2.10
== END | disposition home or self-care (01) ==
LOC: MFPLAB 09:28
PROVIDERS: PCP Family Medicine; Visit Provider Family Medicine
DX: E11.59 Type 2 diabetes mellitus with other circulatory complications (principal); E11.69 Type 2 diabetes mellitus with other specified complication; E03.9 Hypothyroidism, unspecified
CPT/HCPCS: 36415; 80053; 80061; 81001; 83036; 84439; 84443; 85025

== ENCOUNTER → 2025-06-10 | Outpatient (CLI) | payer MEDICARE, MEDICAID, SELFPAY ==
--- NOTE | 2025-06-10 09:49 | VDLE_ITS ---
Reason For Study Reason For Study: LLE Venous Incompetence / Pain RIGHT LEFT FV is compressible, spontaneous, phasic, competent CFV is compressible, phasic, and INCOMPETENT for and demonstrates normal augmentation. greater than 1.0 second. Procedure FV is compressible, spontaneous, phasic, competent This is a venous duplex using B-mode, color flow and and demonstrates normal augmentation. spectral Doppler. POP V is compressible, spontaneous, phasic, competent Exam performed in department. and demonstrates normal augmentation. The exam was diagnostic. T/P Trunk is compressible. PTV is compressible. LT PerV is compressible. SFJ is INCOMPETENT and measures 0.71 cm. GSV proximal thigh measures 0.70 x 0.72 cm. GSV at knee measures 0.15 x 0.17 cm. GSV INCOMPETENT throughout for greater than 0.5 seconds. ASV bifurcates from GSV at mid thigh and rejoins the vessel at prox/mid calf. ASV mid thigh is INCOMPETENT for greater than 0.5 seconds and measures 0.69 x 0.72 cm. ASV distal thigh is INCOMPETENT for greater than 0.5 seconds and measures 0.62 x 0.76 cm. ASV at knee is INCOMPETENT for greater than 0.5 seconds and measures 0.67x 0.72 cm. ASV proximal calf is INCOMPETENT for greater than 0.5 seconds and measures 0.65 x 0.70 cm. Perforating Vessel mid calf approx. 10cm distal to knee is INCOMPETENT for greater than 0.5 seconds and measures 0.14 cm. Varicose veins noted at knee and prox calf. SSV at junction is competent and measures 0.36 cm. SSV mid calf is competent and measures 0.33 x 0.36 cm. VL/Venous Duplex US, Unilateral Interpretation Summary Deep veins of the left lower extremity are patent and compressible segmentally. There is no evidence of left lower extremity deep vein thrombosis. The left great saphenous vein appears patent an d compressible segmentally. Positive for reflux in the left common femoral vein, saphenofemoral junction, g reat saphenous vein throughout, accessory saphenous veins in mid thigh/distal thigh/at knee/in calf, and flow coordinator vein in calf. Ordering Physician: Dave Rossi Referring Physician: Ludwin Christianson Performed By: Toi Obregon RVT
== END | disposition home or self-care (01) ==
LOC: CVS 09:48
PROVIDERS: PCP Family Medicine; Referring Provider Surgery Trauma Surgery; Visit Provider Surgery Trauma Surgery
DX: I83.812 Varicose veins of left lower extremity with pain (principal); I87.2 Venous insufficiency (chronic) (peripheral)
CPT/HCPCS: 93971

== ENCOUNTER → 2025-06-22 | Outpatient (CLI) | payer MEDICARE, MEDICAID, SELFPAY ==
--- NOTE | 2025-06-22 09:10 | RAD_ITS ---
PROCEDURE: CHEST PA AND LATERAL 06/22/2025 REASON FOR EXAM: BRONCHITIS TECHNIQUE: Procedure Code: RADCXR Modality: DX Procedure: CHEST PA AND LATERAL COMPARISON: 03/28/2025. FINDINGS: The heart is enlarged. Left apical mass. No acute osseous abnormalities. Right chest infusion port. RAD/Chest PA and Lateral IMPRESSION: Left apical mass. Reading Location: [id number]
== END | disposition home or self-care (01) ==
PROVIDERS: PCP Family Medicine; Referring Provider Family Medicine; Visit Provider Family Medicine
DX: J20.9 Acute bronchitis, unspecified (principal)
CPT/HCPCS: 71046

== ENCOUNTER → 2025-07-11 | Outpatient (CLI) | payer MEDICARE, MEDICAID, SELFPAY ==
--- NOTE | 2025-07-11 07:14 | CT_ITS ---
PROCEDURE: CT CHEST, ABD, PEL W/CONTRAST 07/11/2025 REASON FOR EXAM: NSCLC IV CONTRAST ONLY Keytruda q 3 weeks TECHNIQUE: Chest, abdomen and pelvis CT with intravenous contrast. Coronal and Sagittal reconstruction series were provided. One or more dose reduction techniques were used (e.g., Automated exposure control, adjustment of the mA and/or kV according to patient size, use of iterative reconstruction technique. PATIENT PREPARATION: Per protocol ORAL CONTRAST TYPE: None. CONTRAST: Isovue 370 VOLUME: 99mL RADIATION DOSE SUMMARY: CTDlvol: 50 mGy DLP: 1783 mGycm COMPARISON: March 28, 2025 April 05, 2025, April 01, 2025 FINDINGS: CT CHEST: Hardware: None Lymph nodes: None appear enlarged Heart and Vasculature: Heart is mildly enlarged. No pericardial effusion. Moderate atherosclerotic plaque. Lungs and Airways: Left upper lobe mass is seen adjacent to the mediastinum extending towards the apex and abutting the major fissure as roots posterior margin. It estimated to measure 6.2 x 7.0 x 4.8 cm. Previously 5.3 x 6.0 x 4.4 cm when measured similarly.. Noncalcified nodule left lower lobe is 6.3 mm on image 69. Noncalcified nodule right lung apex is 3.9 mm on image 26. Irregular, ill-defined nodular densities right upper lobe on images 30, 34, 37, 40, 44, 48, and another in the superior segment measuring 49. Pleura: Scant pleural fluid left lung base. Linear scarring both lower lobes. CT ABDOMEN/PELVIS: Liver: Mild, diffuse fatty liver. Non cirrhotic. Gallbladder: Cholecystectomy. No duct dilation. Spleen: Normal Pancreas: Normal Adrenals: Normal Kidneys: Normal Bladder: Normal Reproductive Organs: Hysterectomy. No adnexal mass. Bowel: Small sliding hiatus hernia. Small bowel is unremarkable. Colon is unremarkable. Appendix: The appendix is not identified. There is no inflammatory process identified in the right lower quadrant to suggest appendicitis. Lymph nodes: None appear enlarged Vasculature: [id number] atherosclerotic plaque. No aneurysm. Peritoneum / Retroperitoneum: No free air, free fluid or mass Bones: Degenerative changes lower thoracic spine. Grade 1 retrolisthesis L2 on L3. Lower lumbar facet hypertrophy. CT/CT Chest, Abd, Pel w/Contrast IMPRESSION: 1. Large mass left upper lobe with dimensions above. Interval increase in siz e. Maximal dimension 7 cm. Multiple tiny nodular densities right upper lobe, superior segment right lower lobe and left lower lo be. 2. Mild fatty liver. Cholecystectomy. Sliding hiatus hernia. 3. Hysterectomy. Reading Location: [id number]
--- OUTSIDE RECORDS SUMMARY | 2025-07-11 07:20 | XMS RPT_ITS | CCD ---
Author Organization [facility] Care Team Providers Care School Community Relations Coordinator Name Role Phone HarrietJesusita Garcia Unavailable Unavailable MD Ryan, Eder S Unavailable TIARA Smart, Arely Brown Unavailable UnavailSharif Pedraza Primary Care Provider Dr. Sharif Christianson Primary Care Provider Dr. Sharif Christianson Referring Provider Dr. Shannan Waldrop Attending Provider DENISE Wilkins Attending Provider Ryan, Eder S Unavailable Dr. Sharif Christianson Primary Care Provider Dr. Sharif Christianson Referring Provider Dr. Shannan Waldrop Attending Provider DENISE Wilkins Attending Provider Sharif Christianson Primary Care Provider Ryan, Eder S Unavailable Dr. Sharif Christianson Primary Care Provider Dr. Sharif Christianson Referring Provider Dr. Shannan Waldrop Attending Provider Bhavya, Dr. Anahi Farah Admit Provider Bhavya, Dr. Anahi Farah Attending Provider Bhavya, Dr. Anahi Farah Other Provider Sharif Christianson [place] Primary Care Provider [phone] Eder Davis Unavailable LOAN RIVAS Referring Unavailable [facility] Primary Care Unavailabl e PERCY, BRYCE F Attending Unavailable KINGT, BRYCE F Referring Unavailable [facility] Primary Care Unavailabl e PERCY, BRYCE F Attending Unavailable KINGT, BRYCE F Referring Unavailable [facility] Primary Care Unavailabl e MANUELYAT, BRYCE F Referring Unavailable [facility] Primary Care Unavailabl e KACY GLEZ Referring Unavailable [facility] Primary Care Unavailabl e [facility] SHARIF EDLENOIR Referring Unavailabl e PERCY, BRYCE F Attending Unavailable [facility] Primary Care Unavailabl e MEGHAN SHARIF EDWARD Referring Unavailabl e PERCY, BRYCE F Attending Unavailable [facility] Primary Care Unavailabl e REUBEN PLASENCIA Consulting Unavailable KINGT, BRYCE F Admitting Unavailable [facility] Primary Care Unavailabl KYLEIGH Lee Attending Unavailable GISELA MONTOYA Consulting ELIO De Jesus Admitting Unavailable PERCY, BRYCE F Attending Unavailable [facility] Primary Care Unavailabl e SHARIF CHRISTIANSON LEETONIA Referring [facility]availabl e [facility] Primary Care Unavailabl e PERCY, BRYCE F Attending Unavailable [facility] E[facility] Referring Unavailabl e [facility] Primary Care Unavailabl e MEGHAN SHARIF EDWARD Referring Unavailabl e PERCY, BRYCE F Attending Unavailable [facility] Primary Care Unavailabl e KACY GLEZ Referring Unavailable [facility] Primary Care Unavailabl e PERCY, BRYCE F Referring Unavailable [facility] Primary Care Unavailabl e PERCY, BRYCE F Attending Unavailable PERCY, BRYCE F Admitting Unavailable [facility] Primary Care Unavailabl e PERCY, BRYCE [...] Other Provider Alex, Dr. Avery Attending Provider PETER SUDISH Attending Unavailable PINKY WINTER Referring Unavailable SCHINNER, SHARIF E Primary Care Unavailable PETER, SUDISH Referring Unavailable SCHINNER, SHARIF E Primary [...] Attending Provider Dr. Brennen Roth Attending Provider [facility] [place] Attending Provider Dr. Sharif Christianson Primary Care Provider Dr. Brennen Roth Referring Provider Dr. Sharif Christianson Referring Provider Leah COUNTER TACKER, COUNTER TACKER-C Sabi Attending Provider Dr. Isreal Carvalho Attending [...] Dr. Sharif Christianson MD Primary Care Provider Dr. Sharif Christianson MD Referring Provider Leah COUNTER TACKER-C, Sabi Attending Provider Dr. Sharif Christianson MD Attending Provider Ivonne Wilkins Attending Provider Dr. Shannan Waldrop MD Attending Provider Benjie PALOMO, Dr. Campbell Referring Provider Xenia Solorzano Attending Provider Maggy PALOMO, Dr. Pinky Mercado Other Provider Leah COUNTER TACKER-C, Sabi Referring Provider Meghan PALOMO, Dr. Sharif Lovell Primary Care Provider [phone] Meghan PALOMO, Dr. Sharif Lovell Referring Provider Benjie PALOMO, Dr. Campbell Attending Provider Meghan PALOMO, Dr. Sharif Lovell Attending Provider Leah COUNTER TACKER-C, Sabi Attending Provider Benjie PALOMO, Dr. Campbell Referring Provider Maggy PALOMO, Dr. Pinky Mercado Other Provider Meghan PALOMO, Dr. Sharif Lovell Primary Care Provider [phone] Meghan PALOMO, Dr. Sharif Lovell Referring Provider Benjie PALOMO, Dr. Campbell Attending Provider Leah COUNTER TACKER-C, Sabi Attending Provider Meghan PALOMO, Dr. Sharif Lovell Attending Provider Benjie PALOMO, Dr. Campbell Referring Provider Maggy PALOMO, Dr. Pinky Mercado Other Provider Meghan PALOMO, Dr. Sharif Lovell Primary Care Provider Meghan PALOMO, Dr. Sharif Lovell Referring Provider Benjie PALOMO, Dr. Campbell Attending Provider Benjie PALOMO, Dr. Campbell Referring Provider Maggy PALOMO, Dr. Pinky Mercado Other Provider Dr. Sharif Christianson MD Primary Care Provider [phone] Meghan PALOMO, Dr. Sharfi Lovell Referring Provider Leah COUNTER TACKER-C, Sabi Attending Provider Dr. Sharif Christianson MD Primary Care Provider Meghan PALOMO, Dr. Sharif Lovell Referring Provider Darshana WALKER, Xenia Attending Provider Darshana WALKER, Xenia Referring Provider Isabel PALOMO, Dr. Lucero Attending Provider Benjie PALOMO, Dr. Campbell Referring Provider Maggy PALOMO, Dr. Pinky Mercado Other Provider Meghan PALOMO, Dr. Sharif Lovell Primary Care Provider Meghan PALOMO, Dr. Sharif Lovell Referring Provider Leah COUNTER TACKER-C, Sabi Attending Provider Benjie PALOMO, Dr. Campbell Referring Provider Maggy PALOMO, Dr. Pinky Mercado Other Provider Ryan PALOMO, Dr. Gaines Attending Provider Meghan PALOMO, Dr. Sharif Lovell Primary Care Provider Dr. Sharif Christianson MD Referring Provider Benjie PALOMO, Dr. Campbell Attending Provider Maggy PALOMO, Dr. Pinky Mercado Other Provider Dr. Sharif Christianson MD Primary Care Physician Dr. Sharif Christianson MD Attending Physician Dr. Sharif Christianson MD Referring Provider Benjie PALOMO, Dr. Campbell Attending Physician Leah COUNTER TACKER-C, Sabi Attending Physician Darshana PA, Xenia Attending Physician Darshana WALKER, Xenia Referring Provider Isabel PALOMO, Dr. Lucero Attending Physician Dr. Shannan Waldrop MD Referring Provider Ryan PALOMO, Dr. Gaines Attending Physician Maggy PALOMO, Dr. Pinky Mercado Nurse Practitioner Maggy PALOMO, Dr. Pinky Mercado Nurse Practitioner Meghan PALOMO, Dr. Sharif Lovell Primary Care Physician Meghan PALOMO, Dr. Sharif Lovell Referring Provider Leah COUNTER TACKER-C, Sabi Attending Physician Gilliland PA, Xenia Attending Physician Isabel PALOMO, Dr. Lucero Attending Physician Benjie PALOMO, Dr. Campbell Attending Physician Ryan PALOMO, Dr. Gaines Attending Physician Meghan PALOMO, Dr. Sharif Lovell Attending Physician Enid PALOMO, Dr. Acosta Attending Physician Maggy PALOMO, Dr. Pinky Mercado Nurse Practitioner Enid PALOMO, Dr. Acosta Referring Provider Meghan PALOMO, Dr. Sharif Lovell Primary Care Physician Meghan PALOMO, Dr. Sharif Lovell Referring Provider Gilliland PA, Xenia Attending Physician Gilliland PA, Xenia Referring Provider Isabel PALOMO, Dr. Lucero Attending Physician Benjie PALOMO, Dr. Campbell Attending Physician Benjie PALOMO, Dr. Campbell Referring Provider Ryan PALOMO, Dr. Gaines Attending Physician Meghan PALOMO, Dr. Sharif Lovell Attending Physician Enid PALOMO, Dr. Acosta Attending Physician Leah COUNTER TACKER-C, Sabi Attending Physician Maggy PALOMO, Dr. Pinky Mercado Nurse Practitioner Dr. Dave Rossi MD Referring Provider Sharif Christianson Primary Care Unavailable SchSharif brasher Referring Unavailable SchSharif brasher Attending Unavailable SchSharif brasher E Primary Care Unavailable Xenia Gilliland Attending Unavailable Xenia Gilliland Referring Unavailable SchSharif brasher Primary Care Unavailable SchSharif brasher Referring Unavailable Shannan Waldrop Attending Unavailable Shannan Waldrop Attending Unavailable Shannan Waldrop Referring Unavailable SchShraif brasher E Primary Care Unavailable SchSharif brasher Attending Unavailable Sharif Christianson Primary Care Unavailable SchSharif brasher Referring Unavailable SchSharif brasher Primary Care Unavailable Dave Rossi Referring Unavailable Dave Rossi Attending Unavailable Sharif Christianson Attending Unavailable SchSharif brasher Referring Unavailable SchSharif brasher Primary Care Unavailable SchSharif brasher Referring Unavailable SchSharif brasher Primary Care Unavailable Shannan Waldrop Attending Unavailable Sharif Christianson Primary Care Unavailable SchSharif brasher Referring Unavailable Leah COUNTER TACKER, Sabi Attending Unavailable SchSharif brasher E Primary Care Unavailable SchSharif brasher Referring Unavailable Shannan Waldrop Attending Unavailable Sharif Christianson Primary Care Unavailable SchSharif brasher Referring Unavailable Xenia Gilliland Attending Unavailable Sharif Christianson Primary Care Unavailable Ivonne Wilkins Attending Unavail able Sharif Christianson Referring Unavailable SchSharif brasher Primary Care Unavailable SchSharif brasher Referring Unavailable Leah COUNTER TACKER, Sabi Attending Unavailable Sharif Christianson Primary Care Unavailable SchSharif brasher Referring Unavailable Leah COUNTER TACKER, Sabi Attending Unavailable SchSharif brasher Primary Care Unavailable Leah COUNTER TACKER, Sabi Attending Unavailable Leah COUNTER TACKER, Sabi Referring Unavailable Leah COUNTER TACKER, Sabi Attending Unavailable Sharif Christianson Primary Care Unavailable Leah COUNTER TACKER, Sabi Referring Unavailable SchSharif brasher E Primary Care Unavailable Pinky Winter V Consulting Unavailable Shannan Waldrop Attending Unavailable Shannan Waldrop Referring Unavailable SchSharif brasher E Primary Care Unavailable Xenia Gilliland Attending Unavailable Sharif Christianson Referring Unavailable SchSharif brasher E Primary Care Unavailable Leah COUNTER TACKER, Sabi Attending Unavailable Sharif Christianson Referring Unavailable Sharif Christianson Primary Care Unavailable Sharif Christianson Referring Unavailable Leah COUNTER TACKER, Sabi Attending Unavailable Sharif Christianson Primary Care Unavailable Sharif Christianson Referring Unavailable Shannan Waldrop Attending Unavailable Sharif Christianson Attending Unavailable Sharif [...] Christianson Referring Unavailable Nic Hall Attending Unavailable Shannan Waldrop Attending Unavailable Sharif Christianson Primary Care Unavailable Sharif Christianson Referring Unavailable Leah COUNTER TACKER, Sabi Attending Unavailable Sharif Christianson Primary Care Unavailable Sharif Christianson Referring Unavailable Sharif Christianson Primary Care Unavailable Sharif Christianson Referring Unavailable Dave Rossi Attending Unavailable Shannan Waldrop Attending Unavailable Sharif Christianson Primary Care Unavailable Sharif Christianson Referring Unavailable Sharif Christianson Referring Unavailable Sharif Christianson Primary Care Unavailable Leah COUNTER TACKER, Sabi Attending Unavailable Sharif Christianson Referring Unavailable Leah COUNTER TACKER, Sabi Attending Unavailable Sharif Christianson Primary Care Unavailable Sharif Christianson Primary Care Unavailable Sharif Christianson Referring Unavailable Shannan Waldrop Attending Unavailable Sharif Christianson Primary Care Unavailable Sharif Christianson Referring Unavailable Eder Davis Attending Unavailable Sharif Christianson Primary Care Unavailable Dave Rossi Attending Unavailable Dave Rossi Referring Unavailable Sharif Christianson Referring Unavailable Leah COUNTER TACKER, Sabi Attending Unavailable Sharif Christianson Primary Care Unavailable Sharif Christianson Primary Care Unavailable Leah COUNTER TACKER, Sabi Attending Unavailable Sharif Christianson Referring Unavailable Sharif Christianson Primary Care Unavailable Xenia Gilliland Attending Unavailable Xenia Gilliland Referring Unavailable Sharif Christianson Attending Unavailable Sharif Christianson Primary Care Unavailable Allergies Allergy Classification Reported Allergen(s) Allergy Type Date of Onset Reaction(s) Facility (19 sources) Acetaminophen / oxyCODONE; Translations: [OXYCODONE-ACETAMI NOPHEN] Drug Allergy 10-21-2019 Itching [facility] (13 sources) Acetaminophen Drug Allergy 03-04-2022 Itching [facility] (20 sources) oxyCODONE Drug Allergy 03-04-2022 [facility] (1 source) oxyCODONE Drug Allergy 06-28-2025 [facility] Repository Medications Current Medications Medication Drug Class(es) Dates Sig (Normalized) Sig (Original) acetaminophen 325 mg / oxyCODONE hydrochloride 5 mg oral tablet (18 sources) Opioid Agonist Start: 05-17-2025 Start: 01-25-2025 End: 05-17-2025 Oxycodone-Acetaminophen 5-32 5 mg tablet Discontinued 1 {tbl} PO EVERY 6 HOURS as needed 0 January 24, 2025 11:00pm May 17, 2025 12:08pm Start: 01-25-2025 End: 05-17-2025 calcium carbonate 1500 mg / cholecalciferol 200 unt oral capsule (4 sources) Vitamin D Start: 10-01-2021 take 1 capsule by mouth once daily Calcium Carbonate-Vitamin D3 Active 1 CAP PO DAILY October 01, 2021 1:00am cholecalciferol 1.25 mg oral capsule (20 sources) Vitamin D Start: 04-05-2025 take 1 capsule by mouth every week Start: 04-21-2024 End: 05-19-2024 take 1 capsule by mouth every month Cholecalciferol (Vitamin D3) 1,250 mcg (50,000 unit) capsule Discontinued 1250 ug PO EVERY MONTH April 20, 2024 11:00pm May 19, 2024 12:21pm Start: 04-21-2024 End: 05-19-2024 Start: 10-06-2023 End: 02-23-2024 take 1 capsule by mouth every month Cholecalciferol (Vitamin D3) 1,250 mcg (50,000 unit) capsule Discontinued 1250 ug PO EVERY MONTH October 06, 2023 12:00am February 23, 2024 7:29am Start: 10-06-2023 End: 02-23-2024 Start: 04-05-2022 End: 10-01-2022 take 1 tablet by mouth once daily Cholecalciferol (Vitamin D3) (Vitamin D3) 125 mcg (5,000 unit) Tablet Discontinued 125 ug PO DAILY April 04, 2022 11:00pm October 01, 2022 8:46am supp Start: 11-14-2021 take 1 tablet by rick th once daily cholecalciferol (VITAMIN D3) 5,000 unit tab Take 1 tablet by mouth once daily. 0 11/14/2021 Active Comment on above: Take 1 tablet by rick th once daily. 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, left bronchus or lung Lifetime ; no expiration Start: 09-07-2024 Disability Thao card Active 0 .Route .MEDSUPPLY 1 0 September [...] .Route .MEDSUPPLY 1 0 September 07, 2024 8:37am September 07, 2024 1:45pm Cancer of upper lobe of left lung [...] Disability Placard Discontin ued 0 .Route .MEDSUPPLY September 07, 2024 9:37am September 07, 2024 2:45pm Lifetime ; no expiration Start: 10-14-2023 End: 09-07-2024 Disability Placard Discontin ued 0 .Route .MEDSUPPLY 1 0 October 14, 2023 12:36pm September 07, 2024 8:39am Cancer of upper lobe of left lung [...] .Route .MEDSUPPLY 1 0 October 14, 2023 12:00am October 14, 2024 12:00am October 14, 2023 12:36pm Cancer of upper lobe of left [...] October 14, 2023 1:36pm . levothyroxine sodium 0.088 m g oral tablet (20 sources) l-Thyroxine Start: 04-26-2025 take 1 tablet by rick th once daily Start: 01-04-2025 End: 04-26-2025 take 1 tablet by mouth once daily Levothyroxine (Synthroid) 50 mcg tablet Discontinued 75 ug PO daily April 05, 2025 12:30pm April 26, 2025 9:53am Hypothyroidism Hypothyroidism, unspecified Adjust dose in future as instructed lidocaine 25 mg/ml / prilocaine 25 mg/ml topical cream (20 sources) Antiarrhythmic, Amide Local Anesthetic Start: 07-17-2023 End: 11-02-2024 Start: 07-17-2023 End: 11-02-2024 Start: 07-17-2023 Lidocaine-Pril ocaine Active 1 APPLIC TOPICAL ONCE 30 July 17, 2023 1:00am lisinopril 5 mg oral tablet (20 sources) Angiotensin Converting Enzyme Inhibitor Start: 08-31-2024 take 1 tablet by mouth once daily Start: 05-30-2022 End: 06-14-2023 take 1 tablet by mouth once daily Lisinopril 20 mg tablet Discontinued 20 mg PO DAILY 90 3 October 24, 2022 8:46am June 14, 2023 6:26am bp Start: 10-08-2015 End: 05-30-2022 take 1 tablet by mouth at bedtime Lisinopril 10 mg tablet Discontinued 10 mg PO AT BEDTIME 90 3 February 07, 2021 11:28am October 01, 2021 11:13am Comment on above: Take 10 mg by mouth once daily. metFORMIN hydrochloride 1000 mg oral tablet (20 sources) Biguanide Start: 09-29-2020 End: 10-01-2022 take 1 tablet by mouth twice daily Start: 09-29-2020 End: 10-01-2022 Metformin 1,000 mg tablet Discontinued 500 mg PO TWICE A DAY September 29, 2020 12:00am October 01, 2022 8:48am dm Start: 09-29-2020 End: 10-01-2022 take 500 mg by mouth twice daily Metformin Discontinued 500 MG PO TWICE A DAY September 29, 2020 1:00am October 01, 2022 9:48am Start: 10-17-2015 take 4 tablets by [facility] once daily METFORMIN HCL ER 500 MG [id number] four tablets by mouth daily METFORMIN HCL [id number] Eder Davis MD Start: 10-17-2015 take 2 tablets by [facility] twice daily METFORMIN HCL ER 500 MG [id number] Two tablets by mouth twice daily METFORMIN HCL [id number] Arely Smart RN Start: 10-08-2015 End: 09-29-2020 take 2 tablets by mouth twice daily Metformin 500 MG tablet Discontinued 1000 mg PO TWICE A DAY October 08, 2015 12:00am September 29, 2020 1:41pm Start: 10-08-2015 End: 09-29-2020 take 1000 mg [...] Comment on above: Take 1,000 mg by [facility] twice daily. Take 500 mg by mouth twice daily. Take 0.5 mg in the AM and 0.5mg in the PM omeprazole 20 mg delayed release oral tablet (20 sources) Proton Pump Inhibitor Start: 12-14-2024 take 1 tablet by mouth once daily Start: 08-13-2023 End: 02-23-2024 take 1 tablet by mouth once daily Omeprazole 20 mg tablet,delayed release (DR/EC) Discontinued 20 mg PO DAILY August 13, 2023 12:00am February 23, 2024 7:28am ondansetron 8 mg disintegrating oral tablet (20 sources) Serotonin-3 Receptor Antagonist Start: 07-17-2023 End: 06-02-2024 take 1 tablet by mouth every eight hours as needed for nausea and vomiting 24 hr oxybutynin chloride 15 mg extended release oral tablet (20 sources) Cholinergic Muscarinic Antagonist Start: 10-01-2021 take 1 tablet by mouth once daily Start: 09-17-2021 End: 10-01-2021 take 1 tablet by mouth once daily Oxybutynin Chloride 5 mg tablet Discontinued 5 mg PO DAILY September 17, 2021 12:00am October 01, 2021 10:43am End: 02-14-2022 take 1 tablet by mouth twice daily oxybutynin ER (DITROPAN XL) 15 mg 24 hr Extended Rel Tab Take 7.5 mg by mouth twice daily. 0 02/14/2022 Discontinued Comment on above: Take 15 mg by mouth once daily. Take 7.5 mg by mouth twice daily. 4 ml pembrolizumab 25 mg/ml injection (16 sources) Programmed Receptor-1 Blocking Antibody Start: 12-30-2024 Start: 12-30-2024 (12 sources) Start: 09-07-2024 Start: 09-07-2024 End: 09-07-2024 Start: 10-14-2023 End: 09-07-2024 Start: 10-14-2023 End: 10-14-2023 Start: 08-13-2023 End: 12-08-2023 Start: 05-21-2021 End: 10-01-2021 Completed/Discontinued Medications Medication Drug Class(es) Dates Sig (Normalized) Sig (Original) acetaminophen 500 mg oral tablet (20 sources) Start: 04-05-2022 End: 11-10-2024 Start: 11-14-2021 End: 11-10-2024 take 2 tablets by mouth every six hours as needed for pain Acetaminophen 500 mg Tablet Discontinued 1000 mg PO EVERY 6 HOURS as needed for Pain April 04, 2022 11:00pm November 10, 2024 12:20pm Comment on above: Take 2 tablets by [facility] every 6 hours as needed for pain. 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 Start: 02-25-2020 End: 03-01-2020 Start: 02-25-2020 End: 03-01-2020 Hydrocodone-Acetaminophen Di scontinued 1 EACH PO EVERY 4 HOURS NEEDED 14 5 February 25, 2020 March 01, 2020 12:02am amLODIPine 5 mg oral tablet (20 sources) Dihydropyridine Calcium Channel Palomo Start: 02-02-2018 End: 07-21-2019 take 1 tablet by mouth once daily Amlodipine 5 mg tablet Discontinued 5 mg PO daily 30 0 August 12, 2018 10:46am July 21, 2019 1:00pm Start: 10-17-2015 take 1 tablet by rick th once daily AMLODIPINE BESYLATE 5 MG TABS One tablet by mouth daily AMLODIPINE BESYLATE [id number] Eder Davis MD amoxicillin 500 mg oral capsule (20 sources) Penicillin-class Antibacterial Start: 08-21-2023 End: 08-26-2023 take 1 capsule by mouth every eight hours Amoxicillin 500 mg capsule Discontinued 500 mg PO Q8H 15 5 0 August 21, 2023 12:00am August 25, 2023 12:00am August 26, 2023 12:04am Urinary tract infection Urinary tract infection, site not specified aspirin 81 mg delayed release oral tablet (20 sources) Platelet Aggregation Inhibitor, Nonsteroidal Anti-inflammatory Drug Start: 06-14-2023 End: 10-12-2024 take 1 tablet by mouth at breakfast Aspirin 81 mg tablet,delayed release (DR/EC) Discontinued 81 mg PO WITH BREAKFAST 90 August 09, 2024 10:06am October 12, 2024 10:15am Start: 10-17-2015 take 1 tablet by rick th once daily aspirin, enteric coated (ASPIRIN, ENTERIC COATED) 81 mg EC tablet Take 1 tablet by mouth once daily. 0 10/17/2015 Suspended Start: 10-17-2015 take 1 tablet by rick th once daily ASPIRIN 81 MG TABS One tablet by mouth daily ASPIRIN [id number] rAely Smart RN Start: 10-17-2015 take 1 tablet by rick th once daily ASPIRIN 81 MG TABS One tablet by mouth daily ASPIRIN [id number] Arely Smart RN Comment on above: Take 81 mg by mouth once daily. Take 1 tablet by rick th once daily. atorvastatin 40 mg oral tablet (20 sources) HMG-CoA Reductase Inhibitor Start: 10-12-2024 End: 04-05-2025 Atorvastatin 40 mg tablet Discontinued 20 mg PO AT BEDTIME October 12, 2024 10:16am April 05, 2025 9:50am Start: 06-14-2023 End: 04-05-2025 take 1 tablet by mouth at bedtime Atorvastatin 40 mg tablet Discontinued 40 mg PO AT BEDTIME 90 3 July 23, 2024 5:35pm October 12, 2024 10:17am Start: 07-21-2019 End: 10-01-2022 take 1 tablet by mouth once daily Atorvastatin 40 mg tablet Discontinued 40 mg PO DAILY 90 4 March 23, 2020 12:37pm April 05, 2022 5:27pm Start: 10-17-2015 take 1 tablet by rick th once daily ATORVASTATIN CALCIUM 80 MG TABS One tablet by mouth every night ATORVASTATIN CALCIUM [id number] Eder Davis MD Comment on above: Take 40 mg by mouth once daily. 1 tablet by ORAL/FEE DING TUBE route daily at bedtime. bee pollen 580 mg oral capsule (6 sources) Start: 6 End: 6 take 1 tablet by mouth once daily BEE POLLEN 580 MG CAPS One tablet by mouth daily BEE POLLEN [id number] Arely Smart RN bisacodyl 5 mg delayed release oral tablet (20 sources) Stimulant Laxative Start: 3 End: 3 take 1 tablet by mouth at bedtime as needed for constipation Bisacodyl 5 mg tablet Discontinued 5 mg PO AT BEDTIME as needed for constipation January 28, 2023 11:00pm August 12, 2023 8:25am Start: 01-29-2023 End: 08-12-2023 Bisacodyl (DULCO LAX) 5 mg tab Take 5 mg by mouth as needed for constipation. 0 Active Comment on above: Take 5 mg by mouth a s needed for constipation. 12 hr buPROPion hydrochloride 150 mg extended release oral tablet (20 sources) Aminoketone Start: 06-11-20 End: 06-01-20 take 1 tablet by mouth every twelve hours Bupropion Hcl 150 mg tablet sustained-release 12 hr Discontinued 150 mg PO Q12H June 10, 2023 11:00pm June 01, 2025 1:23pm Calcium (20 sources) Phosphate Binder, Calcium Start: 05-21-20 End: 10-01-19 take 600 mg by mouth once daily Calcium Discontinued 600 MG PO DAILY May 21, 2021 2:35pm October 01, 2021 11:45am Start: 05-21-2021 End: 10-01-2021 take 1 capsule by mouth once daily Calcium 600 mg Capsule Discontinued 600 mg PO DAILY May 20, 2021 11:00pm October 01, 2021 10:45am Start: 05-21-2021 End: 10-01-2021 take 1 capsule [...] 500 mg PO TWICE A DAY 20 0 February 24, 2020 11:00pm June 20, 2020 8:03am cilostazol 100 mg oral tablet (20 sources) Phosphodiesterase 3 Inhibitor Start: 03-08-2025 End: 04-06-2025 take 1 tablet by mouth twice daily Cilostazol 100 mg tablet Discontinued 100 mg PO TWICE A DAY 60 5 April 04, 2025 2:06pm April 06, 2025 6:02am Start: 10-06-2023 End: 09-21-2024 take 1 tablet by mouth twice daily Cilostazol 100 mg tablet Discontinued 100 mg PO TWICE A DAY October 06, 2023 12:00am September 21, 2024 8:02am Start: 01-29-2023 End: 06-14-2023 take 1 tablet by mouth twice daily Cilostazol 100 mg tablet Discontinued 100 mg PO TWICE A DAY January 28, 2023 11:00pm June 14, 2023 6:26am Start: 01-21-2020 End: 06-20-2020 take 1 tablet by mouth once Cilostazol 100 mg tablet Discontinued 100 mg PO ONCE January 20, 2020 11:00pm June 20, 2020 8:03am Start: 01-21-2020 End: 06-20-2020 Comment on above: Take 100 mg by mouth twice daily. ciprofloxacin 250 mg oral tablet (20 sources) Quinolone Antimicrobial Start: End: take 1 tablet by mouth twice daily for urinary tract infection Ciprofloxacin Hcl 250 mg Tablet Discontinued 250 mg PO TWICE A DAY 5 0 April 16, 2022 11:00pm April 29, 2022 10:09am Take 1 tab 2 times a day until gone for UTI Comment on above: Take 250 mg by mouth twice daily. #5 days starting 04.17.2022 clopidogrel 75 mg oral tablet (20 sources) P2Y12 Platelet Inhibitor Start: End: take 1 tablet by mouth once daily Clopidogrel 75 mg tablet Discontinued 75 mg PO DAILY 90 3 July 23, 2024 5:37pm July 27, 2024 8:55am Start: 10-17-2015 End: 03-28-2022 take 1 tablet by mouth once daily Clopidogrel (Plavix) 75 mg tablet Discontinued 75 mg PO daily 90 3 February 26, 2021 3:31pm October 01, 2021 11:13am Comment on above: Take 75 mg by mouth once daily. Take by mouth. Cranberry Fruit Concentrate (20 sources) Non-Standardized Food Allergenic Extract, Non-Standardized Plant Allergenic Extract Start: End: take 1 tablet by mouth three times daily as needed Cranberry Fruit Concentrate (Azo Cranberry) 250 mg tablet,chewable Discontinued 250 mg PO THREE TIMES A DAY as needed July 30, 2022 12:00am October 01, 2022 8:46am Start: 07-30-2022 End: 10-01-2022 Start: 07-30-2022 End: 10-01-2022 take 1 tablet [...] 8:46am Start: 07-30-2022 [facility] Cranberry Fruit Concentrate (Azo Cranberry) 250 mg tablet,chewable Active 250 MG PO THREE TIMES A DAY July 30, 2022 12:00am dexamethasone 4 mg oral tablet (17 sources) Corticosteroid Start: 03-04-2024 End: 07-05-2024 Dexamethasone 4 mg tablet Discontinued 4 mg PO TWICE A DAY 30 3 March 03, 2024 11:00pm July 05, 2024 9:38am Cancer of upper lobe of left lung [...] capsule (20 sources) Start: 01-29-2023 End: 05-01-2023 Sanderson-3 Fatty Acids-Fish Oil (Fish Oil) 360-1,200 mg capsule Discontinued 1 NMA PO DAILY January 28, 2023 11:00pm May 01, 2023 7:15am Start: 01-29-2023 End: 05-01-2023 docusate sodium 100 mg oral capsule (20 sources) Start: 08-12-2023 End: 10-12-2024 take 1 capsule by mouth twice daily as needed for constipation Docusate Sodium (Colace) 100 mg capsule Discontinued 100 mg PO TWICE A DAY as needed for constipation August 12, 2023 12:00am October 12, 2024 10:16am Start: 10-01-2021 take 1 capsule by mo [facility] three times weekly Docusate Sodium (Colace) 100 mg capsule Active 100 MG PO .COMPLEX October 01, 2021 1:00am 100 mg PO 3 times per week; docusate sodium 50 mg / sennosides, senior care 8.6 mg oral tablet (15 sources) Start: 11-14-2021 End: 05-23-2022 take 1 tablet by mouth twice daily senna-docusate (SENNA-S) 8.6-50 mg per tablet Take 1 tablet by mouth twice daily. 0 11/14/2021 05/23/2022 Discontinued (Patient chooses alternative therapy) Comment on above: Take 1 tablet by rick th twice daily. 0.5 ml dulaglutide 1.5 mg/ml auto-injector (16 sources) GLP-1 Receptor Agonist Start: 12-14-2024 End: 01-04-2025 Dulaglutide (Trulicity) 0.75 mg/0.5 mL pen injector Discontinued 0.75 mg SC EVERY WEEK December 13, 2024 11:00pm January 04, 2025 12:17pm Start: 12-14-2024 End: 01-04-2025 empagliflozin 25 mg oral tablet (20 sources) Sodium-Glucose Cotransporter 2 Inhibitor Start: 10-01-2021 End: 10-01-2022 take 1 tablet by mouth once daily Empagliflozin 25 mg tablet Discontinued 25 mg PO DAILY@0800 October 01, 2021 12:00am October 01, 2022 8:47am dm Start: 09-27-2020 End: 10-01-2021 take 1 tablet by mouth once daily Empagliflozin 10 MG tablet Discontinued 10 mg PO DAILY September 27, 2020 12:00am October 01, 2021 10:44am Comment on above: Take 25 mg by mouth daily with breakfast. 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 glimepiride 4 mg oral tablet (20 sources) Sulfonylurea Start: 6 End: 0 take 1 tablet by mouth once daily Glimepiride 4 MG tablet Discontinued 4 mg PO DAILY October 08, 2015 12:00am January 21, 2020 8:24am INSULIN GLARGINE (3 sources) Insulin Analog Start: 6 LANTUS 100 UNIT/ML SOLN 25 units per day INSULIN GLARGINE [id number] Leticia A [address] [employer] Start: 05-30-2016 LANTUS 100 UNI T/ML SOLN 25 units per day INSULIN GLARGINE [id number] Leticia A [address] [employer] lacosamide 100 mg oral tablet (20 sources) Anti-epileptic Agent Start: 04-05-2022 End: 10-01-2022 take 1 tablet by mouth twice daily Lacosamide 100 mg Tablet Discontinued 100 mg PO TWICE A DAY 60 0 April 17, 2022 10:07am October 01, 2022 8:47am sewizure Comment on above: 1 tablet by ORAL/FEEDING TUBE route twic e daily for 30 days. loratadine 10 mg oral tablet (17 sources) Start: 08-09-2024 End: 11-10-2024 take 1 tablet by mouth once daily as needed Loratadine 10 mg tablet Discontinued 10 mg PO daily as needed for allergy symptoms August 09, 2024 12:00am November 10, 2024 12:21pm LORazepam 0.5 mg oral tablet (20 sources) Benzodiazepine Start: 10-08-2015 End: 07-21-2019 take 1 tablet by mouth once daily as needed for anxiety Lorazepam 0.5 MG tablet Discontinued 0.5 mg PO DAILY NEEDED as needed for Anxiety October 08, 2015 12:00am July 21, 2019 1:00pm Magic Mouth Wash (Bmx) (4 sources) Start: [...] Magic Mouth Wash (Bmx) 180 mL suspension (15 sources) Start: 08-13-2023 End: 12-08-2023 Magic Mouth Wash (Bmx) 180 m L suspension Discontinued 15 mL PO .Q6HR 180 August 13, 2023 12:00am December 08, 2023 1:36pm Stomatitis Other forms of stomatitis diphenhydramine 12.5 [...] mL magnesium citrate 58.2 mg/ml oral solution (20 sources) Start: 08-12-2023 End: 08-20-2023 take 1 mL by mouth once daily as needed Magnesium Citrate solution Discontinued 150 mL PO DAILY as needed August 12, 2023 12:00am August 20, 2023 8:34am Start: 08-12-2023 End: 08-20-2023 Start: 08-12-2023 End: 08-20-2023 take 1 mL by mouth once daily Magnesium Citrate Discon tinued 150 ML PO DAILY August 12, 2023 1:00am August 20, 2023 9:34am magnesium oxide 400 mg oral tablet (17 sources) Start: 07-27-2024 End: 12-14-2024 take 1 tablet by mouth once daily Magnesium Oxide 400 mg magnesium tablet Discontinued 400 mg PO daily July 27, 2024 12:00am December 14, 2024 9:43am melatonin 5 mg oral tablet (20 sources) Start: 01-29-2023 End: 02-11-2024 take 1 tablet by mouth at bedtime as needed for sleep Melatonin 5 mg tablet Discontinued 5 mg PO BEDTIME as needed for sleep January 28, 2023 11:00pm February 11, 2024 7:13am Start: 01-29-2023 End: 02-11-2024 Start: 04-05-2022 End: 10-01-2022 take 1 tablet by mouth at bedtime Melatonin 5 mg Tablet Discontinued 5 mg PO AT BEDTIME April 04, 2022 11:00pm October 01, 2022 8:47am sleep Start: 04-05-2022 End: 10-01-2022 Start: 11-14-2021 take 5 tablets by mo uth once daily at bedtime melatonin 1 mg tablet 5 tablets by ORAL/FEEDING TUBE route daily at bedtime. 0 11/14/2021 Active Comment on above: 5 tablets by ORAL/FE EDING TUBE route daily at bedtime. meloxicam 15 mg oral tablet (20 sources) Nonsteroidal Anti-inflammatory Drug Start: 6 End: 8 take 1 tablet by mouth once daily Meloxicam 15 MG tablet Discontinued 15 mg PO DAILY October 08, 2015 12:00am June 26, 2018 2:00pm metoprolol tartrate 25 mg oral tablet (20 sources) beta-Adrenergic Palomo Start: 3 End: 5 take 1 tablet by mouth once daily Metoprolol Tartrate 25 mg tablet Discontinued 25 mg PO daily September 06, 2024 2:40pm April 05, 2025 9:56am Start: 06-14-2023 End: 09-06-2024 Metoprolol Tartrate 25 mg ta blet Discontinued 12.5 mg PO TWICE A DAY 90 July 23, 2024 5:36pm September 06, 2024 2:41pm Start: 06-14-2023 End: 07-14-2023 take 12.5 mg by mouth twice daily Metoprolol Tartrate Active 12.5 MG PO TWICE A DAY 90 July 14, 2023 1:27pm Start: 12-04-2017 End: 06-26-2018 Metoprolol Tartrate 25 mg ta blet Discontinued 12.5 mg PO TWICE A DAY 90 December 04, 2017 11:10am June 26, 2018 2:00pm Start: 12-04-2017 End: 06-26-2018 Start: 12-04-2017 End: 06-26-2018 take 12.5 mg by mouth twice daily Metoprolol Tartrate Discontinued 12.5 MG PO TWICE A DAY 90 December 04, 2017 12:10pm June 26, 2018 3:00pm Start: 10-17-2015 take 1 tablet by rick twice daily METOPROLOL TARTRATE 25 MG TABS One half tablet by mouth twice daily METOPROLOL TARTRATE [id number] Eder Davis MD 24 hr nicotine 0.875 mg/hr transdermal system (20 sources) Cholinergic Nicotinic Agonist Start: 06-11-2023 End: 10-06-2023 apply 1 dose transdermal route every twenty-four hours Nicotine 21 mg/24 hr patch 24 hour Discontinued 1 NMA TD Q24H June 10, 2023 11:00pm October 06, 2023 2:27pm Start: 04-17-2022 End: 10-01-2022 apply 1 dose transdermal route every twenty-four hours Nicotine (Nicoderm Cq) 14 mg/24 hr patch 24 hour Discontinued 1 NMA TD DAILY 14 0 April 16, 2022 11:00pm October 01, 2022 8:47am Start: 04-17-2022 End: 10-01-2022 Start: 04-17-2022 End: 10-01-2022 apply 1 dose [...] mg TD Q24H 14 14 0 April 16, 2022 11:00pm October 01, 2022 8:47am Start: 10-17-2015 End: 05-30-2016 NICOTINE 7 MG/24HR PT24 one patch transderm daily NICOTINE [id number] Arely Smart RN End: 03-28-2022 nicotine (NICODERM) 7 mg/24 hr Apply 1 Patch as directed every 24 hours. 0 03/28/2022 Discontinued Comment on above: Apply 1 Patch as dir ected every 24 hours. nitrofurantoin, macrocrystals 100 mg oral capsule (20 sources) Nitrofuran Antibacterial Start: End: take 1 capsule by mouth twice daily at mealtime Nitrofurantoin Macrocrystal 100 mg capsule Discontinued 100 mg PO TWICE A DAY September 03, 2023 12:00am Val 8th, 2024 7:29am must administer with a meal/food oxyCODONE hydrochloride 5 mg oral tablet (20 sources) Opioid Agonist Start: 022 End: 023 take 1 tablet by mouth every six hours as needed for pain Oxycodone 5 mg Tablet Discontinued 5 mg PO EVERY 6 HOURS NEEDED as needed for Pain Score 6-10 20 7 0 April 17, 2022 October 01, 2022 8:47am Subdural hematoma Status post craniotomy Other specified [...] 40 mg PO DAILY 30 0 April 16, 2022 11:00pm October 01, 2022 8:47am Comment on above: Take 40 mg by mouth once daily. phenazopyridine hydrochloride 100 mg oral tablet (20 sources) Start: 02-25-20 20 End: 06-20-20 20 take 1 tablet by mouth twice daily Phenazopyridine 100 MG tablet Discontinued 100 mg PO TWICE A DAY 20 0 February 24, 2020 11:00pm June 20, 2020 8:03am Start: 02-14-2019 End: 07-21-2019 take 1 tablet by mouth three times daily Phenazopyridine 200 MG tablet Discontinued 200 mg PO THREE TIMES A DAY 6 0 February 13, 2019 11:00pm July 21, 2019 1:00pm Start: 02-14-2019 End: 07-21-2019 take 1 tablet by mouth three times daily Phenazopyridine 95 MG tablet Discontinued 95 mg PO THREE TIMES A DAY 6 0 February 13, 2019 11:00pm July 21, 2019 1:00pm Start: 03-04-2016 End: 06-26-2018 take 1 tablet by mouth twice daily as needed for pain Phenazopyridine 200 MG tablet Discontinued 200 mg PO TWICE DAILY NEEDED as needed for Pain 10 0 March 03, 2016 11:00pm June 26, 2018 2:01pm Start: 03-04-2016 End: 06-26-2018 polyethylene glycol 3350 06991 mg powder for oral solution (20 sources) Osmotic Laxative Start: 11-14-2021 End: 10-01-2022 take 17 g by mouth once daily Polyethylene Glycol 3350 17 gram/dose powder Discontinued 17 g PO DAILY 510 0 April 17, 2022 10:07am October 01, 2022 8:47am Comment on above: Take 1 Packet by rick once daily. Dissolve dose in 4 - [...] Start: 01-29-2023 take 1 tablet by rick once daily Sennosides (Senna) 8.6 mg tablet Active 8.6 MG PO DAILY January 28, 2023 11:00pm Start: 01-29-2023 take 1 tablet by rick th once daily Sennosides (Senna) 8.6 mg tablet Active 8.6 MG PO DAILY January 29, 2023 12:00am sennosides, senior care 8.6 mg oral tablet (4 sources) Start: 01-29-2023 End: 10-12-2024 take 1 tablet by mouth once daily as needed for constipation Sennosides (Senna) 8.6 mg tablet Discontinued 8.6 mg PO DAILY as needed for constipation January 28, 2023 11:00pm October 12, 2024 10:16am sulfamethoxazole 800 mg / trimethoprim 160 mg oral tablet (20 sources) Dihydrofolate Reductase Inhibitor Antibacterial, Sulfonamide Antimicrobial Start: 03-04-2016 End: 06-26-2018 Sulfamethoxazole -Trimethoprim 1 TABLET tablet Discontinued 1 {tbl} PO TWICE A DAY 10 0 March 03, 2016 11:00pm June 26, 2018 2:01pm Start: 03-04-2016 End: 06-26-2018 Start: 03-04-2016 End: 06-26-2018 take 1 tablet by mouth twice daily Sulfamethoxazole-Trimethoprim Discontinued 1 TABLET PO TWICE A DAY March 04, 2016 12:00am June 26, 2018 3:01pm Problems Active Problems Problem Classification Problem Date Documented Da te Episodic/Chronic Acute bronchitis (1 source) Acute bronchitis, unspecified; Translations: [Acute bronchitis, unspecified] Onset: 06-22-2025 Episodic Acute cerebrovascular disease (20 sources) Intracranial hemorrhage; [...] (20 sources) Lightheadedness; Translations: [Dizziness and giddiness] 05-01-2022 Episodic Coronary atherosclerosis and other heart disease (20 sources) Atherosclerotic heart disease of [place] coronary artery without angina pectoris; Translations: [Coronary atherosclerosis] Onset: 10-17-2015 10-17-2015 Chronic Coronary atherosclerosis and other heart disease (11 sources) Presence of coronary angioplasty implant and graft; Translations: [Percutaneous transluminal coronary angioplasty status] Onset: 10-10-2015 Episodic Deficiency and other anemia (20 sources) Iron deficiency anemia due to blood loss; Translations: [Iron deficiency anemia secondary to blood loss (chronic)] Onset: 01-23-2021 01-23-2021 Chronic Deficiency and other anemia (20 sources) Iron deficiency anemia secondary to blood loss (chronic); Translations: [Iron deficiency anemia secondary to blood loss (chronic)] Onset: 06-28-2025 Chronic Deficiency and other anemia (20 sources) Nutritional anemia; Translations: [Vitamin B12 deficiency anemia, unspecified] 10-06-2023 Episodic Diabetes mellitus with complications (9 sources) Type 2 diabetes mellitus; Translations: [Type 2 diabetes mellitus with hyperglycemia] Onset: 02-01-2022 04-03-2022 Chronic Diabetes mellitus without complication (20 sources) Diabetes mellitus without complication; Translations: [Type 2 diabetes mellitus without complications] Onset: 01-22-2022 Chronic Comment on above: ORAL MEDS Diseases of white blood cells (19 sources) Drug-induced neutropenia; Translations: [Other drug-induced agranulocytosis] [...] Translations: [Other malaise] Episodic Nausea and vomiting (17 sources) Chemotherapy-induced nausea and vomiting; Translations: [Nausea [...] of unspecified site] Episodic Other circulatory disease (20 sources) Disorder of carotid artery; Translations: [Disorder of arteries and arterioles, unspecified] 11-11-2024 Chronic Other circulatory disease (1 source) Disorder of arteries and arterioles, unspecified; Translations: [Disorder of arteries and arterioles, unspecified] Onset: 11-17-2024 Chronic Other circulatory disease (20 sources) History of subdural hematoma; Translations: [Personal history of other diseases of the circulatory system] 05-01-2022 Episodic Other circulatory disease (2 sources) H/O: [employer] disorder; Translations: [Personal history of other diseases of the circulatory system] 05-01-2022 Episodic Other diseases of veins and lymphatics (2 sources) Peripheral venous insufficiency; Translations: [Venous insufficiency (chronic) (peripheral)] 06-01-2025 Episodic Other gastrointestinal disorders (8 sources) Dysphagia; Translations: [Dysphagia, unspecified] Onset: 04-01-2022 04-01-2022 Episodic Other gastrointestinal disorders (20 sources) Constipation; Translations: [Constipation, unspecified] 08-04-2023 Episodic Other gastrointestinal disorders (2 sources) Constipation, unspecified; Translations: [Constipation, unspecified] 08-04-2023 Episodic Other lower respiratory disease (14 sources) Nodule of lung; Translations: [Solitary pulmonary nodule] 04-29-2022 Episodic Other lower respiratory disease (18 sources) Solitary pulmonary nodule; Translations: [Solitary pulmonary nodule] Episodic Other lower respiratory disease (17 sources) Multiple nodules of lung; Translations: [Other [...] Onset: 10-28-2021 Chronic Other nervous system disorders (20 sources) Disorder of brain; Translations: [Encephalopathy, unspecified] [...] Chronic Other nutritional; endocrine; and metabolic disorders (18 sources) Hypomagnesemia; Translations: [Hypomagnesemia] 07-05-2024 Chronic Other nutritional; endocrine; and metabolic disorders (1 source) Hypomagnesemia; Translations: [Hypomagnesemia] Onset: 08-09-2024 Chronic Other screening for suspected conditions (not mental disorders or infectious disease) (20 sources) Abnormal finding on evaluation procedure; Translations: [Abnormal results of function studies of other organs and systems] 04-08-2022 Episodic Other skin disorders (18 sources) Bilateral localized swelling of lower legs; Translations: [Localized swelling, mass and lump, lower limb, bilateral] 07-27-2024 Episodic Other upper respiratory infections (17 sources) Viral upper respiratory tract infection; Translations: [Acute upper respiratory infection, unspecified] 06-28-2024 Episodic Peripheral and visceral atherosclerosis (20 sources) Intermittent claudication; Translations: [Peripheral vascular disease, unspecified] Onset: 04-12-2025 Chronic Comment on above: Resolved after stent to the RLE. abnormal JEANIE 2017 Residual codes; unclassified (20 sources) Patient encounter status; Translations: [Encounter for prophylactic measures, unspecified] Onset: 03-31-2022 03-31-2022 Episodic Residual codes; unclassified (8 sources) Delirium; Translations: [Disorientation, unspecified] Onset: 04-01-2022 04-01-2022 Episodic Residual codes; unclassified (20 sources) History of craniotomy; Translations: [Other specified postprocedural states] 04-08-2022 Episodic Comment on above: 03/28/22 for R SDH at [facility] by Dr. Greer Residual codes; unclassified (5 sources) Other specified postprocedural states; Translations: [Other postprocedural status] Episodic Residual codes; unclassified (17 sources) At risk of deep vein thrombosis; Translations: [Other specified personal risk factors, not elsewhere classified] 07-27-2024 Episodic Secondary malignancies (20 sources) Secondary malignant neoplasm of lung; Translations: [Secondary malignant neoplasm of unspecified lung] 01-25-2025 Chronic Secondary malignancies (1 source) Secondary malignant neoplasm of right lung; Translations: [Secondary malignant neoplasm of right lung] Onset: 06-07-2025 Chronic Secondary malignancies (1 source) Secondary malignant neoplasm of left lung; Translations: [Secondary malignant neoplasm of left lung] Onset: 06-07-2025 Chronic Spondylosis; intervertebral disc disorders; other back problems (12 sources) Low back pain; Translations: [Low back pain] 03-08-2025 Episodic Substance-related disorders (20 sources) Nicotine dependence; Translations: [Nicotine dependence, unspecified, uncomplicated] Onset: 10-17-2015 10-17-2015 Chronic Substance-related disorders (6 sources) Nicotine dependence, unspecified, uncomplicated; Translations: [Tobacco use disorder] Onset: 11-07-2021 Chronic Thyroid disorders (20 sources) Hypothyroidism; Translations: [Hypothyroidism, unspecified] Onset: 04-05-2025 01-04-2025 Chronic Comment on above: Secondary to PD-L1 i nhibitor immunotherapy Unclassified (1 source) Placement of stent in coronary artery ; Translations: [Presence of coronary angioplasty implant and graft] Onset: 10-17-2015 10-17-2015 Unclassified (2 sources) Long-term drug therapy; Translations: [Other meterman (current) drug therapy] Onset: 10-17-2015 10-17-2015 Unclassified (1 source) Acute subdural hematoma; Translations: [Acute subdural hematoma] Onset: 05-23-2022 Unclassified (1 source) Low back pain, unspecified; Translations: [Low back pain, unspecified] Onset: 03-14-2025 Urinary tract infections (20 sources) Urinary tract infectious disease; Translations: [Urinary tract infection, site not specified] 08-21-2023 Episodic Varicose veins of lower extremity (20 sources) Varicose veins of lower limb co-occurrent with edema; Translations: [Varicose veins of bilateral lower extremities with other complications] Onset: 11-17-2024 11-11-2024 Episodic Comment on above: CTA- long segment SF A occlusion with dense calcium at origin, reconstitution at popliteal above knee. scattered calcified moderate stenosis in common/external iliac Viral infection (20 sources) Disease caused by 2019-nCoV; Translations: [COVID-19] 06-11-2023 Episodic Past or Other Problems Problem Classification Problem Date Documented Da te Episodic/Chronic Calculus of urinary tract (17 sources) Kidney stone; Translations: [Calculus of kidney] Onset: 10-21-2016 10-21-2016 Episodic Deficiency and other anemia (1 source) [...] Onset: 01-15-2022 Episodic Other aftercare (4 sources) intermediate (current) use of antithrombotics/ant iplatelets; Translations: [Other meterman (current) drug therapy] Onset: 10-17-2015 10-17-2015 Episodic Other aftercare (10 sources) Long-term current use of anticoagulant; 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] Onset: 10-21-2016 10-21-2016 Episodic Other gastrointestinal disorders (17 sources) Oropharyngeal dysphagia; Translations: [Dysphagia, oropharyngeal phase] Onset: 11-06-2021 11-06-2021 Episodic Other gastrointestinal disorders (1 source) Dysphagia, oropharyngeal phase; Translations: [Oropharyngeal dysphagia] Onset: 11-06-2021 Episodic Other skin disorders (1 source) Localized [...] whether with hypoxia or hypercapnia] Onset: 10-28-2021 2 Episodic Screening and history of mental health and substance abuse codes (18 sources) Tobacco use and exposure - finding; Translations: [Personal history of nicotine dependence] Onset: 10-21-2016 10-21-2016 Episodic Results Test Name Value Interpretation Reference Range Facility CBC W/Diff, Automatedon 11-1 Absolute Lymph 1.40 X10 3/uL Normal 0.83-4.51 [facility] Comment on above: Performed By: #### L [id number], L500.4050, L501.2300, L100.0100 ####[facility] [address] [place], [address] Absolute Neut 6.5 X10 3/uL Normal 2.0-7.7 [facility] Comment on above: Performed By: #### L [id number], [id number], L501.2300, L100.0100 ####[facility] [address] [place], [address] Basophils/100 WBC (Bld) 0.5 % Normal 0-1 [facility] Comment on above: Performed By: #### L [id number], [id number], L501.2300, L100.0100 ####[facility] [address] [place], [address] Eosinophils/100 WBC (Bld) 1.0 % Normal 0-5 [facility] Comment on above: Performed By: #### L [id number], [id number], [id number], L100.0100 ####[facility] [address] [place], [address] Erythrocyte distribution width (RBC) [Ratio] 17.9 % High 11.6-14.6 [facility] Comment on above: Performed By: #### L 501.9520, L500.4050, L501.2300, L100.0100 ####[facility] [address] [place], [address] Hematocrit (Bld) [Volume fraction] 35.2 % Low 37-47 [facility] Comment on above: Performed By: #### L 501.9520, L500.4050, L501.2300, L100.0100 ####[facility] [address] [place], [address] Hemoglobin (Bld) [Mass/Vol] 10.9 g/dL Low 12.0-15.0 [facility] Comment on above: Performed By: #### L 501.9520, L500.4050, L501.2300, L100.0100 ####[facility] [address] [place], [address] IG% 0.400 Normal 0.0-0.9 [facility] Comment on above: Result Comment: IG% - Immature Granulocytes (promyelocytes, myelocytes andmetamyelocytes) > 1% indicates that a LEFT SHIFT is Present. Performed By: #### L 501.9520, L500.4050, L501.2300, L100.0100 ####[facility] [address] [place], [address] Lymphocytes/100 WBC (Bld) 15.3 % Low 19-41 [facility] Comment on above: Performed By: #### L 501.9520, L500.4050, L501.2300, L100.0100 ####[facility] [address] [place], [address] MCH (RBC) [Entitic mass] 26.6 pg Low 27.0-32.0 [facility] Comment on above: Performed By: #### L 501.9520, L500.4050, L501.2300, L100.0100 ####[facility] [address] [place], [address] MCHC (RBC) [Mass/Vol] 31.0 g/dL Low 32-36 [facility] Comment on above: Performed By: #### L 501.9520, L500.4050, L501.2300, L100.0100 ####[facility] [address] [place], [address] MCV (RBC) [Entitic vol] 85.9 fL Normal 81-99 [facility] Comment on above: Performed By: #### L 501.9520, L500.4050, L501.2300, L100.0100 ####[facility] [address] [place], [address] Monocytes/100 WBC (Bld) 12.1 % High 0-10 [facility] Comment on above: Performed By: #### L 501.9520, L500.4050, L501.2300, L100.0100 ####[facility] [address] [place], [address] Neutrophils/100 WBC (Bld) 70.7 % High 47-70 [facility] Comment on above: Performed By: #### L 501.9520, L500.4050, L501.2300, L100.0100 ####[facility] [address] [place], [address] Nucleated RBC (Bld) [#/Vol] 0 10*3/uL Normal 0-5 [facility] Comment on above: Performed By: #### L 501.9520, L500.4050, L501.2300, L100.0100 ####[facility] [address] [place], [address] Platelet mean volume (Bld) [Entitic vol] 8.5 fL Normal 6.2-12.0 [facility] Comment on above: Performed By: #### L 501.9520, L500.4050, L501.2300, L100.0100 ####[facility] [address] [place], [address] Platelets (Bld) [#/Vol] 361 10*3/uL Normal 150-450 [facility] Comment on above: Performed By: #### L 501.9520, L500.4050, L501.2300, L100.0100 ####[facility] [address] [place], [address] RBC (Bld) [#/Vol] 4.10 10*6/uL Low 4.2-5.4 [facility] Comment on above: Performed By: #### L 501.9520, L500.4050, L501.2300, L100.0100 ####[facility] [address] [place], [address] RDW SD 55.4 fl High 35.1-43.9 [facility] Comment on above: Performed By: #### L 501.9520, L500.4050, L501.2300, L100.0100 ####[facility] [address] [place], [address] WBC (Bld) [#/Vol] 9.1 10*3/uL Normal 4.4-11.0 [facility] Comment on above: Performed By: #### L 501.9520, L500.4050, L501.2300, L100.0100 ####[facility] [address] [place], [address] Comprehensive [facility] 06-28-2025 Albumin [Mass/Vol] 4.0 g/dL Normal 3.4-4.8 [facility] Comment on above: Performed By: #### L 501.9520, L500.4050, L501.2300, L100.0100 ####[facility] [address] [place], [address] Albumin/Globulin [Mass ratio] 1.4 {ratio} Normal 0.9-2.4 [facility] Comment on above: Performed By: #### L 501.9520, L500.4050, L501.2300, L100.0100 ####[facility] [address] [place], [address] ALK PHOS 89 U/L Normal 35-104 [facility] Comment on above: Performed By: #### L 501.9520, L500.4050, L501.2300, L100.0100 ####[facility] [address] [place], [address] ALT [Catalytic activity/Vol] 8 U/L Normal <=34 [facility] Comment on above: Performed By: #### L 501.9520, L500.4050, L501.2300, L100.0100 ####[facility] [address] [place], [address] AST [Catalytic activity/Vol] 14 U/L Normal <=31 [facility] Comment on above: Performed By: #### L 501.9520, L500.4050, L501.2300, L100.0100 ####[facility] [address] [place], [address] Bilirubin [Mass/Vol] 0.36 mg/dL Normal 0.00-1.30 [facility] Comment on above: Performed By: #### L 501.9520, L500.4050, L501.2300, L100.0100 ####[facility] [address] [place], [address] BUN/CRE 15.3 RATIO Normal 10-20 [facility] Comment on above: Performed By: #### L 501.9520, L500.4050, L501.2300, L100.0100 ####[facility] [address] [place], [address] Calcium [Mass/Vol] 9.6 mg/dL Normal 7.6-11.0 [facility] Comment on above: Performed By: #### L 501.9520, L500.4050, L501.2300, L100.0100 ####[facility] [address] [place], [address] Chloride [Moles/Vol] 102 mmol/L Normal 98-108 [facility] Comment on above: Performed By: #### L 501.9520, L500.4050, L501.2300, L100.0100 ####[facility] [address] [place], [address] CO2 [Moles/Vol] 20.5 mmol/L Low 21.0-32.0 [facility] Comment on above: Performed By: #### L 501.9520, L500.4050, L501.2300, L100.0100 ####[facility] [address] [place], [address] Creatinine [Mass/Vol] 0.75 mg/dL Normal 0.70-1.20 [facility] Comment on above: Performed By: #### L 501.9520, L500.4050, L501.2300, L100.0100 ####[facility] [address] [place], [address] ECRCL 64.38 ml/min Normal 50-250 [facility] Comment on above: Performed By: #### L 501.9520, L500.4050, L501.2300, L100.0100 ####[facility] [address] [place], [address] GAP 14 Normal 5-15 [facility] Comment on above: Performed By: #### L 501.9520, L500.4050, L501.2300, L100.0100 ####[facility] [address] [place], [address] GFR/1.73 sq M.predicted among non-blacks MDRD (S/P/Bld) [Vol rate/Area] 86 mL/min/{1.73_m2} Normal >60 [facility] Comment on above: Result Comment: mL/m in/1.73m2 CKD-EPI Creatinine Equation (2020) Performed By: #### L 501.9520, L500.4050, L501.2300, L100.0100 ####[facility] [address] [place], [address] Globulin (S) [Mass/Vol] 2.9 g/dL Normal 2.2-4.2 [facility] Comment on above: Performed By: #### L 501.9520, L500.4050, L501.2300, L100.0100 ####[facility] [address] [place], [address] Glucose [Mass/Vol] 131 mg/dL High 70-99 [facility] Comment on above: Performed By: #### L 501.9520, L500.4050, L501.2300, L100.0100 ####[facility] [address] [place], [address] Potassium [Moles/Vol] 4.1 mmol/L Normal 3.3-5.1 [facility] Comment on above: Performed By: #### L 501.9520, L500.4050, L501.2300, L100.0100 ####[facility] [address] [place], [address] Sodium [Moles/Vol] 137 mmol/L Normal 133-145 [facility] Comment on above: Performed By: #### L 501.9520, L500.4050, L501.2300, L100.0100 ####[facility] [address] [place], [address] T PROT 6.9 g/dL Normal 5.9-8.4 [facility] Comment on above: Performed By: #### L 501.9520, L500.4050, L501.2300, L100.0100 ####[facility] [address] [place], [address] Urea nitrogen [Mass/Vol] 12 mg/dL Normal 4-19 [facility] Comment on above: Performed By: #### L 501.9520, L500.4050, L501.2300, L100.0100 ####[facility] [address] [place], [address] Oncology Visit Reporton 06-18 Oncology Visit Report Normal [facility] Phosphoruson 06-28-2025 Phosphate [Mass/Vol] 3.6 mg/dL Normal 2.7-4.5 [facility] Comment on above: Performed By: #### L 501.9520, L500.4050, L501.2300, L100.0100 ####[facility] [address] [place], [address] Thyroid Stim Hormone (TSH)on 06-28-2025 TSH 12.700 uIU/mL High 0.300-4.200 [facility] Comment on above: Performed By: #### L 501.9520, L500.4050, L501.2300, L100.0100 ####[facility] [address] [place], [address] Chest PA and Lateralon 06-22 Chest PA and Lateral Normal [facility] Venous Duplex US, Unilateral on 06-10-2025 Venous Duplex US, Unilateral Normal [facility] Absolute lymphocyte countOrd ered By: Shannan Waldrop on 06-07-2025 Lymphocytes Auto (Unsp spec) [#/Vol] 1.31 10*3/uL 0.83-4.51 [facility] Absolute neutrophil countOrd ered By: Shannan Waldrop on 06-07-2025 Neutrophils (Bld) [#/Vol] 7.3 10*3/uL 2.0-7.7 [facility] Anion gap in Serum or Plasma Ordered By: Shannan Benjie on 06-07-2025 Anion gap [Moles/Vol] 15 mmol/L 12-30 [facility] Automated lymphocyte count a s percentage of total leukocytesOrdered By: Shannan Benjie on 06-07-2025 Lymphocytes/100 WBC Auto (Unsp spec) 13.3 % Low [facility] BUN/creatinine ratioOrdered By: [facility] on 06-07-2025 Urea nitrogen/Creatinine [Mass ratio] 15.4 mg/mg 06-06 [facility] Basophil percentageOrdered B y: Springja Waldrop on 06-07-2025 Basophils/100 WBC (Bld) 0.5 % 0-1 [facility] Bilirubin, totalOrdered By: [facility] on 06-07-2025 Bilirubin [Mass/Vol] 0.30 mg/dL 0.00-1.30 [facility] CBC W/Diff, Automatedon 05-19 Absolute Lymph 1.31 X10 3/uL Normal 0.83-4.51 [facility] Comment on above: Performed By: #### L 501.9520, L500.4050, L501.2300, L100.0100 ####[facility] [address] [place], [address] Absolute Neut 7.3 X10 3/uL Normal 2.0-7.7 [facility] Comment on above: Performed By: #### L 501.9520, L500.4050, L501.2300, L100.0100 ####[facility] [address] [place], [address] Basophils/100 WBC (Bld) 0.5 % Normal 0-1 [facility] Comment on above: Performed By: #### L 501.9520, L500.4050, L501.2300, L100.0100 ####[facility] [address] [place], [address] Eosinophils/100 WBC (Bld) 1.3 % Normal 0-5 [facility] Comment on above: Performed By: #### L 501.9520, L500.4050, L501.2300, L100.0100 ####[facility] [address] [place], [address] Erythrocyte distribution width (RBC) [Ratio] 17.4 % High 11.6-14.6 [facility] Comment on above: Performed By: #### L 501.9520, L500.4050, L501.2300, L100.0100 ####[facility] [address] [place], [address] Hematocrit (Bld) [Volume fraction] 34.6 % Low 37-47 [facility] Comment on above: Performed By: #### L 501.9520, L500.4050, L501.2300, L100.0100 ####[facility] [address] [place], [address] Hemoglobin (Bld) [Mass/Vol] 11.0 g/dL Low 12.0-15.0 [facility] Comment on above: Performed By: #### L 501.9520, L500.4050, L501.2300, L100.0100 ####[facility] [address] [place], [address] IG% 0.300 Normal 0.0-0.9 [facility] Comment on above: Result Comment: IG% - Immature Granulocytes (promyelocytes, myelocytes andmetamyelocytes) > 1% indicates that a LEFT SHIFT is Present. Performed By: #### L 501.9520, L500.4050, L501.2300, L100.0100 ####[facility] [address] [place], [address] Lymphocytes/100 WBC (Bld) 13.3 % Low 19-41 [facility] Comment on above: Performed By: #### L 501.9520, L500.4050, L501.2300, L100.0100 ####[facility] [address] [place], [address] MCH (RBC) [Entitic mass] 27.3 pg Normal 27.0-32.0 [facility] Comment on above: Performed By: #### L 501.9520, L500.4050, L501.2300, L100.0100 ####[facility] [address] [place], [address] MCHC (RBC) [Mass/Vol] 31.8 g/dL Low 32-36 [facility] Comment on above: Performed By: #### L 501.9520, L500.4050, L501.2300, L100.0100 ####[facility] [address] [place], [address] MCV (RBC) [Entitic vol] 85.9 fL Normal 81-99 [facility] Comment on above: Performed By: #### L 501.9520, L500.4050, L501.2300, L100.0100 ####[facility] [address] [place], [address] Monocytes/100 WBC (Bld) 10.4 % High 0-10 [facility] Comment on above: Performed By: #### L 501.9520, L500.4050, L501.2300, L100.0100 ####[facility] [address] [place], [address] Neutrophils/100 WBC (Bld) 74.2 % High 47-70 [facility] Comment on above: Performed By: #### L 501.9520, L500.4050, L501.2300, L100.0100 ####[facility] [address] [place], [address] Nucleated RBC (Bld) [#/Vol] 0 10*3/uL Normal 0-5 [facility] Comment on above: Performed By: #### L 501.9520, L500.4050, L501.2300, L100.0100 ####[facility] [address] [place], [address] Platelet mean volume (Bld) [Entitic vol] 8.3 fL Normal 6.2-12.0 [facility] Comment on above: Performed By: #### L 501.9520, L500.4050, L501.2300, L100.0100 ####[facility] [address] [place], [address] Platelets (Bld) [#/Vol] 317 10*3/uL Normal 150-450 [facility] Comment on above: Performed By: #### L 501.9520, L500.4050, L501.2300, L100.0100 ####[facility] [address] [place], [address] RBC (Bld) [#/Vol] 4.03 10*6/uL Low 4.2-5.4 [facility] Comment on above: Performed By: #### L 501.9520, L500.4050, L501.2300, L100.0100 ####[facility] [address] [place], [address] RDW SD 54.4 fl High 35.1-43.9 [facility] Comment on above: Performed By: #### L 501.9520, L500.4050, L501.2300, L100.0100 ####[facility] [address] [place], [address] WBC (Bld) [#/Vol] 9.9 10*3/uL Normal 4.4-11.0 [facility] Comment on above: Performed By: #### L 501.9520, L500.4050, L501.2300, L100.0100 ####[facility] [address] [place], [address] Carbon dioxide, total [Moles /volume] in Central venous bloodOrdered By: Shannan Waldrop on 06-07-2025 CO2 [Moles/Vol] 20.0 mmol/L Low 21.0-32.0 [facility] Chloride assayOrdered By: Adriana Waldrop on 06-07-2025 Chloride [Moles/Vol] 100 mmol/L 98-108 [facility] Comprehensive Metabolic Prof ilon 06-07-2025 Albumin [Mass/Vol] 3.9 g/dL Normal 3.4-4.8 [facility] Comment on above: Performed By: #### L 501.9520, L500.4050, L501.2300, L100.0100 ####[facility] [address] [place], [address] Albumin/Globulin [Mass ratio] 1.2 {ratio} Normal 0.9-2.4 [facility] Comment on above: Performed By: #### L 501.9520, L500.4050, L501.2300, L100.0100 ####[facility] [address] [place], [address] ALK PHOS 87 U/L Normal 35-104 [facility] Comment on above: Performed By: #### L 501.9520, L500.4050, L501.2300, L100.0100 ####[facility] [address] [place], [address] ALT [Catalytic activity/Vol] 10 U/L Normal <=34 [facility] Comment on above: Performed By: #### L 501.9520, L500.4050, L501.2300, L100.0100 ####[facility] [address] [place], [address] AST [Catalytic activity/Vol] 21 U/L Normal <=31 [facility] Comment on above: Performed By: #### L 501.9520, L500.4050, L501.2300, L100.0100 ####[facility] [address] [place], [address] Bilirubin [Mass/Vol] 0.30 mg/dL Normal 0.00-1.30 [facility] Comment on above: Performed By: #### L 501.9520, L500.4050, L501.2300, L100.0100 ####[facility] [address] [place], [address] BUN/CRE 15.4 RATIO Normal 10-20 [facility] Comment on above: Performed By: #### L 501.9520, L500.4050, L501.2300, L100.0100 ####[facility] [address] [place], [address] Calcium [Mass/Vol] 10.0 mg/dL Normal 7.6-11.0 [facility] Comment on above: Performed By: #### L 501.9520, L500.4050, L501.2300, L100.0100 ####[facility] [address] [place], [address] Chloride [Moles/Vol] 100 mmol/L Normal 98-108 [facility] Comment on above: Performed By: #### L 501.9520, L500.4050, L501.2300, L100.0100 ####[facility] [address] [place], [address] CO2 [Moles/Vol] 20.0 mmol/L Low 21.0-32.0 [facility] Comment on above: Performed By: #### L 501.9520, L500.4050, L501.2300, L100.0100 ####[facility] [address] [place], [address] Creatinine [Mass/Vol] 0.79 mg/dL Normal 0.70-1.20 [facility] Comment on above: Performed By: #### L 501.9520, L500.4050, L501.2300, L100.0100 ####[facility] [address] [place], [address] ECRCL 64.95 ml/min Normal 50-250 [facility] Comment on above: Performed By: #### L 501.9520, L500.4050, L501.2300, L100.0100 ####[facility] [address] [place], [address] GAP 15 Normal 5-15 [facility] Comment on above: Performed By: #### L 501.9520, L500.4050, L501.2300, L100.0100 ####[facility] [address] [place], [address] GFR/1.73 sq M.predicted among non-blacks MDRD (S/P/Bld) [Vol rate/Area] 80 mL/min/{1.73_m2} Normal >60 [facility] Comment on above: Result Comment: mL/m in/1.73m2 CKD-EPI Creatinine Equation (2020) Performed By: #### L 501.9520, L500.4050, L501.2300, L100.0100 ####[facility] [address] [place], [address] Globulin (S) [Mass/Vol] 3.3 g/dL Normal 2.2-4.2 [facility] Comment on above: Performed By: #### L 501.9520, L500.4050, L501.2300, L100.0100 ####[facility] [address] [place], [address] Glucose [Mass/Vol] 187 mg/dL High 70-99 [facility] Comment on above: Performed By: #### L 501.9520, L500.4050, L501.2300, L100.0100 ####[facility] [address] [place], [address] Potassium [Moles/Vol] 4.4 mmol/L Normal 3.3-5.1 [facility] Comment on above: Performed By: #### L 501.9520, L500.4050, L501.2300, L100.0100 ####[facility] [address] [place], [address] Sodium [Moles/Vol] 135 mmol/L Normal 133-145 [facility] Comment on above: Performed By: #### L 501.9520, L500.4050, L501.2300, L100.0100 ####[facility] [address] [place], [address] T PROT 7.2 g/dL Normal 5.9-8.4 [facility] Comment on above: Performed By: #### L 501.9520, L500.4050, L501.2300, L100.0100 ####[facility] [address] [place], [address] Urea nitrogen [Mass/Vol] 12 mg/dL Normal 4-19 [facility] Comment on above: Performed By: #### L 501.9520, L500.4050, L501.2300, L100.0100 ####[facility] [address] [place], [address] Eosinophil percentageOrdered By: Shannan Waldrop on 06-07-2025 Eosinophils/100 WBC (Bld) 1.3 % 0-5 [facility] Erythrocyte distribution wid th ratioOrdered By: Shannan Waldrop on 06-07-2025 Erythrocyte distribution width (RBC) [Ratio] 17.4 % High 11.6-14.6 [facility] Erythrocyte distribution wid th standard deviationOrdered By: Shannan Waldrop on 06-07-2025 Erythrocyte distribution width (RBC) [Ratio] 54.4 fl High 35.1-43.9 [facility] Glomerular filtration rate ( GFR) estimation/1.73 sq m using serum, plasma, or whole bOrdered By: Shannan Waldrop on 06-07-2025 GFR/1.73 sq M.predicted among non-blacks MDRD (S/P/Bld) [Vol rate/Area] 80 mL/min/{1.73_m2} >60 [facility] Comment on above: mL/min/1.73m2 CKD-EP I Creatinine Equation (2020) Hematocrit Auto (Bld) [Volum e fraction]Ordered By: Shannan Waldrop on 06-07-2025 Hematocrit (Bld) [Volume fraction] 34.6 % Low 37-47 [facility] Hemoglobin measurementOrdere d By: Shannan Waldrop on 06-07-2025 Hemoglobin (Bld) [Mass/Vol] 11.0 g/dL Low 12.0-15.0 [facility] Immature granulocytes/100 WB C Auto (Bld)Ordered By: Shannan Waldrop on 06-07-2025 Immature granulocytes/100 WBC (Bld) 0.300 % 0.0-0.9 [facility] Comment on above: IG% - Immature Granu locytes (promyelocytes, myelocytes and metamyelocytes) > 1% indicates that a LEFT SHIFT is Present. Laboratory - Chemistry and C hemistry - challengeOrdered By: Shannan Waldrop on 06-07-2025 AST [Catalytic activity/Vol] 21 U/L <32 [facility] MCV (mean corpuscular volume ) determinationOrdered By: Shannan Waldrop on 06-07-2025 MCV (RBC) [Entitic vol] 85.9 fL 81-99 [facility] Mean corpuscular hemoglobin (MCH) determinationOrdered By: Shannan Waldrop on 06-07-2025 MCH (RBC) [Entitic mass] 27.3 pg 27.0-32.0 [facility] Mean corpuscular hemoglobin concentration (MCHC) determinationOrdered By: Shannan Waldrop on 06-07-2025 MCHC (RBC) [Mass/Vol] 31.8 g/dL Low 32-36 [facility] Mean platelet volume determi nationOrdered By: Shannan Waldrop on 06-07-2025 Platelet mean volume (Bld) [Entitic vol] 8.3 fL 6.2-12.0 [facility] Monocyte percentageOrdered B y: Shannan Waldrop on 06-07-2025 Monocytes/100 WBC (Bld) 10.4 % High 0-10 [facility] Neutrophil percentageOrdered By: Shannan Waldrop on 06-07-2025 Neutrophils/100 WBC (Bld) 74.2 % High 47-70 [facility] Nucleated red blood cell per centageOrdered By: Shannan Waldrop on 06-07-2025 Nucleated RBC/100 WBC (Bld) [Ratio] 0 % 0-5 [facility] Oncology Visit Reporton 05-19 Oncology Visit Report Normal [facility] Phosphoruson 06-07-2025 Phosphate [Mass/Vol] 3.5 mg/dL Normal 2.7-4.5 [facility] Comment on above: Performed By: #### L [id number], L500.4050, L501.2300, L100.0100 ####[facility] [address] [place], [address] Platelet countOrdered By: Adriana Waldrop on 06-07-2025 Platelets (Bld) [#/Vol] 317 10*3/uL 150-450 [facility] Potassium measurement (mass/ volume)Ordered By: Shannan Waldrop on 06-07-2025 Potassium (Unsp spec) [Mass/Vol] 4.4 mmol/L 3.3-5.1 [facility] RBC Auto (Bld) [#/Vol]Ordere d By: Shannan Waldrop on 06-07-2025 RBC (Bld) [#/Vol] 4.03 10*6/uL Low 4.2-5.4 [facility] Serum creatinine measurement (mass/volume)Ordered By: Shannan Waldrop on 06-07-2025 Creatinine [Mass/Vol] 0.79 mg/dL 0.70-1.20 [facility] Serum globulin measurementOr dered By: Shannan Waldrop on 06-07-2025 Globulin (S) [Mass/Vol] 3.3 g/dL 2.2-4.2 [facility] Serum glucose measurement (m ass/volume)Ordered By: Shannan Waldrop on 06-07-2025 Glucose [Mass/Vol] 187 mg/dL High 70-99 [facility] Serum or plasma alanine amezquita otransferase (ALT) measurementOrdered By: Shannan Waldrop on 06-07-2025 ALT [Catalytic activity/Vol] 10 U/L <35 [facility] Serum or plasma albumin joaquin urement (mass/volume)Ordered By: Shannan Waldrop on 06-07-2025 Albumin [Mass/Vol] 3.9 g/dL 3.4-4.8 [facility] Serum or plasma albumin/glob ulin mass ratioOrdered By: Shannan Waldrop on 06-07-2025 Albumin/Globulin [Mass ratio] 1.2 {ratio} 0.9-2.4 [facility] Serum or plasma alkaline gumaro sphatase measurementOrdered By: Shannan Waldrop on 06-07-2025 ALP [Catalytic activity/Vol] 87 U/L 35-104 [facility] Serum or plasma calcium joaquin urement (mass/volume)Ordered By: Shannan Waldrop on 06-07-2025 Calcium [Mass/Vol] 10.0 mg/dL 7.6-11.0 [facility] Serum or plasma urea nitroge n measurement (mass/volume)Ordered By: Shannan Waldrop on 06-07-2025 Urea nitrogen [Mass/Vol] 12 mg/dL 4-19 [facility] Sodium levelOrdered By: Spring Waldrop on 06-07-2025 Sodium [Moles/Vol] 135 mmol/L 133-145 [facility] TSH DL <= 0.005 mIU/L QnOrde red By: Shannan Waldrop on 06-07-2025 TSH Qn 23.500 uIU/mL High 0.300-4.200 [facility] Thyroid Stim Hormone (TSH)on 06-07-2025 TSH 23.500 uIU/mL High 0.300-4.200 [facility] Comment on above: Performed By: #### L [id number], L500.4050, L501.2300, L100.0100 ####[facility] [address] [place], [place], [address] Total proteinOrdered By: Howard french Benjie on 06-07-2025 Protein [Mass/Vol] 7.2 g/dL 5.9-8.4 [facility] White blood cell (WBC) count Ordered By: Shannan Benjie on 06-07-2025 WBC (Bld) [#/Vol] 9.9 10*3/uL 4.4-11.0 [facility] MR/BMS.BVSon 06-01-2025 MR/BMS.BVS Normal [facility] Absolute lymphocyte countOrd ered By: Shannan Benjie on 05-17-2025 Lymphocytes Auto (Unsp spec) [#/Vol] 1.11 10*3/uL 0.83-4.51 [facility] Anion gap in Serum or Plasma Ordered By: Springja Waldrop on 05-17-2025 Anion gap [Moles/Vol] 15 mmol/L 5-15 [facility] Automated lymphocyte count a s percentage of total leukocytesOrdered By: Springja Waldrop on 05-17-2025 Lymphocytes/100 WBC Auto (Unsp spec) 14.8 % Low 19-41 [facility] BUN/creatinine ratioOrdered By: [facility] on 05-17-2025 Urea nitrogen/Creatinine [Mass ratio] 14.5 mg/mg 10-20 [facility] Basophil percentageOrdered B y: Springja Waldrop on 05-17-2025 Basophils/100 WBC (Bld) 0.4 % 0-1 [facility] Bilirubin, totalOrdered By: Springja Waldrop on 05-17-2025 Bilirubin [Mass/Vol] 0.32 mg/dL 0.00-1.30 [facility] CBC W/Diff, Automatedon 04-20 Absolute Lymph 1.11 X10 3/uL Normal 0.83-4.51 [facility] Comment on above: Performed By: #### L [id number], L100.0100, L500.4050, L501.2300 ####[facility] [address] [place], [address] Absolute Neut 5.5 X10 3/uL Normal 2.0-7.7 [facility] Comment on above: Performed By: #### L [id number], L100.0100, L500.4050, L501.2300 ####[facility] [address] [place], [address] Basophils/100 WBC (Bld) 0.4 % Normal 0-1 [facility] Comment on above: Performed By: #### L [id number], L100.0100, L500.4050, L501.2300 ####[facility] [address] [place], [address] Eosinophils/100 WBC (Bld) 1.2 % Normal 0-5 [facility] Comment on above: Performed By: #### L [id number], L100.0100, L500.4050, L501.2300 ####[facility] [address] [place], [address] Erythrocyte distribution width (RBC) [Ratio] 18.0 % High 11.6-14.6 [facility] Comment on above: Performed By: #### L [id number], L100.0100, L500.4050, L501.2300 ####[facility] [address] [place], [address] Hematocrit (Bld) [Volume fraction] 34.3 % Low 37-47 [facility] Comment on above: Performed By: #### L [id number], L100.0100, L500.4050, L501.2300 ####[facility] [address] [place], [address] Hemoglobin (Bld) [Mass/Vol] 10.8 g/dL Low 12.0-15.0 [facility] Comment on above: Performed By: #### L [id number], L100.0100, L500.4050, L501.2300 ####[facility] [address] [place], [address] IG% 0.500 Normal 0.0-0.9 [facility] Comment on above: Result Comment: IG% - Immature Granulocytes (promyelocytes, myelocytes andmetamyelocytes) > 1% indicates that a LEFT SHIFT is Present. Performed By: #### L 501.9520, L100.0100, L500.4050, L501.2300 ####[facility] [address] [place], [address] Lymphocytes/100 WBC (Bld) 14.8 % Low 19-41 [facility] Comment on above: Performed By: #### L [id number], L100.0100, L500.4050, L501.2300 ####[facility] [address] [place], [address] MCH (RBC) [Entitic mass] 27.1 pg Normal 27.0-32.0 [facility] Comment on above: Performed By: #### L [id number], L100.0100, L500.4050, L501.2300 ####[facility] [address] [place], [address] MCHC (RBC) [Mass/Vol] 31.5 g/dL Low 32-36 [facility] Comment on above: Performed By: #### L [id number], L100.0100, L500.4050, L501.2300 ####[facility] [address] [place], [address] MCV (RBC) [Entitic vol] 86.2 fL Normal 81-99 [facility] Comment on above: Performed By: #### L [id number], L100.0100, L500.4050, L501.2300 ####[facility] [address] [place], [address] Monocytes/100 WBC (Bld) 10.2 % High 0-10 [facility] Comment on above: Performed By: #### L 501.9520, L100.0100, L500.4050, L501.2300 ####[facility] [address] [place], [address] Neutrophils/100 WBC (Bld) 72.9 % High 47-70 [facility] Comment on above: Performed By: #### L [id number], L100.0100, L500.4050, L501.2300 ####[facility] [address] [place], [address] Nucleated RBC (Bld) [#/Vol] 0 10*3/uL Normal 0-5 [facility] Comment on above: Performed By: #### L [id number], L100.0100, L500.4050, L501.2300 ####[facility] [address] [place], [address] Platelet mean volume (Bld) [Entitic vol] 8.6 fL Normal 6.2-12.0 [facility] Comment on above: Performed By: #### L [id number], L100.0100, L500.4050, L501.2300 ####[facility] [address] [place], [address] Platelets (Bld) [#/Vol] 315 10*3/uL Normal 150-450 [facility] Comment on above: Performed By: #### L [id number], L100.0100, L500.4050, L501.2300 ####[facility] [address] [place], [address] RBC (Bld) [#/Vol] 3.98 10*6/uL Low 4.2-5.4 [facility] Comment on above: Performed By: #### L 501.9520, L100.0100, L500.4050, L501.2300 ####[facility] [address] [place], [address] RDW SD 56.9 fl High 35.1-43.9 [facility] Comment on above: Performed By: #### L [id number], L100.0100, L500.4050, L501.2300 ####[facility] [address] [place], [address] WBC (Bld) [#/Vol] 7.5 10*3/uL Normal 4.4-11.0 [facility] Comment on above: Performed By: #### L 501.9520, L100.0100, L500.4050, L501.2300 ####[facility] [address] [place], [address] Carbon dioxide, total [Moles /volume] in Central venous bloodOrdered By: Shannan Waldrop on 05-17-2025 CO2 [Moles/Vol] 20.6 mmol/L Low 21.0-32.0 [facility] Chloride assayOrdered By: Adriana Waldrop on 05-17-2025 Chloride [Moles/Vol] 102 mmol/L 98-108 [facility] Comprehensive Metabolic Prof ilon 05-17-2025 Albumin [Mass/Vol] 3.9 g/dL Normal 3.4-4.8 [facility] Comment on above: Performed By: #### L 501.9520, L100.0100, L500.4050, L501.2300 ####[facility] [address] [place], [address] Albumin/Globulin [Mass ratio] 1.3 {ratio} Normal 0.9-2.4 [facility] Comment on above: Performed By: #### L 501.9520, L100.0100, L500.4050, L501.2300 ####[facility] [address] [place], [address] ALK PHOS 78 U/L Normal 35-104 [facility] Comment on above: Performed By: #### L 501.9520, L100.0100, L500.4050, L501.2300 ####[facility] [address] [place], [address] ALT [Catalytic activity/Vol] 11 U/L Normal <=34 [facility] Comment on above: Performed By: #### L 501.9520, L100.0100, L500.4050, L501.2300 ####[facility] [address], [address] AST [Catalytic activity/Vol] 13 U/L Normal <=31 [facility] Comment on above: Performed By: #### L 501.9520, L100.0100, L500.4050, L501.2300 ####[facility] [address] [place], [address] Bilirubin [Mass/Vol] 0.32 mg/dL Normal 0.00-1.30 [facility] Comment on above: Performed By: #### L 501.9520, L100.0100, L500.4050, L501.2300 ####[facility] [address] [place], [address] BUN/CRE 14.5 RATIO Normal 10-20 [facility] Comment on above: Performed By: #### L 501.9520, L100.0100, L500.4050, L501.2300 ####[facility] [address] [place], [address] Calcium [Mass/Vol] 9.1 mg/dL Normal 7.6-11.0 [facility] Comment on above: Performed By: #### L 501.9520, L100.0100, L500.4050, L501.2300 ####[facility] [address] [place], [address] Chloride [Moles/Vol] 102 mmol/L Normal 98-108 [facility] Comment on above: Performed By: #### L 501.9520, L100.0100, L500.4050, L501.2300 ####[facility] [address] [place], [address] CO2 [Moles/Vol] 20.6 mmol/L Low 21.0-32.0 [facility] Comment on above: Performed By: #### L 501.9520, L100.0100, L500.4050, L501.2300 ####[facility] [address] [place], [address] Creatinine [Mass/Vol] 0.73 mg/dL Normal 0.70-1.20 [facility] Comment on above: Performed By: #### L 501.9520, L100.0100, L500.4050, L501.2300 ####[facility] [address] [place], [address] ECRCL 64.95 ml/min Normal 50-250 [facility] Comment on above: Performed By: #### L 501.9520, L100.0100, L500.4050, L501.2300 ####[facility] [address] [place], [address] GAP 15 Normal 5-15 [facility] Comment on above: Performed By: #### L 501.9520, L100.0100, L500.4050, L501.2300 ####[facility] [address] [place], [address] GFR/1.73 sq M.predicted among non-blacks MDRD (S/P/Bld) [Vol rate/Area] 88 mL/min/{1.73_m2} Normal >60 [facility] Comment on above: Result Comment: mL/m in/1.73m2 CKD-EPI Creatinine Equation (2020) Performed By: #### L 501.9520, L100.0100, L500.4050, L501.2300 ####[facility] [address] [place], [address] Globulin (S) [Mass/Vol] 3.1 g/dL Normal 2.2-4.2 [facility] Comment on above: Performed By: #### L 501.9520, L100.0100, L500.4050, L501.2300 ####[facility] [address] [place], [address] Glucose [Mass/Vol] 187 mg/dL High 70-99 [facility] Comment on above: Performed By: #### L 501.9520, L100.0100, L500.4050, L501.2300 ####[facility] [address] [place], [address] Potassium [Moles/Vol] 4.2 mmol/L Normal 3.3-5.1 [facility] Comment on above: Performed By: #### L 501.9520, L100.0100, L500.4050, L501.2300 ####[facility] [address] [place], [address] Sodium [Moles/Vol] 137 mmol/L Normal 133-145 [facility] Comment on above: Performed By: #### L 501.9520, L100.0100, L500.4050, L501.2300 ####[facility] [address] [place], [address] T PROT 7.0 g/dL Normal 5.9-8.4 [facility] Comment on above: Performed By: #### L 501.9520, L100.0100, L500.4050, L501.2300 ####[facility] [address] [place], [address] Urea nitrogen [Mass/Vol] 11 mg/dL Normal 4-19 [facility] Comment on above: Performed By: #### L 501.9520, L100.0100, L500.4050, L501.2300 ####[facility] [address] [place], [address] Eosinophil percentageOrdered By: Shannan Waldrop on 05-17-2025 Eosinophils/100 WBC (Bld) 1.2 % 0-5 [facility] Erythrocyte distribution wid th ratioOrdered By: Shannan Waldrop on 05-17-2025 Erythrocyte distribution width (RBC) [Ratio] 18.0 % High 11.6-14.6 [facility] Erythrocyte distribution wid th standard deviationOrdered By: [facility] Wal[facility] on 05-17-2025 Erythrocyte distribution width (RBC) [Ratio] 56.9 fl High 35.1-43.9 [facility] Glomerular filtration rate ( GFR) estimation/1.73 sq m using serum, plasma, or whole bOrdered By: Shannan Waldrop on 05-17-2025 GFR/1.73 sq M.predicted among non-blacks MDRD (S/P/Bld) [Vol rate/Area] 88 mL/min/{1.73_m2} >60 [facility] Hematocrit Auto (Bld) [Volum e fraction]Ordered By: Shannan Waldrop on 05-17-2025 Hematocrit (Bld) [Volume fraction] 34.3 % Low 37-47 [facility] Hemoglobin measurementOrdere d By: Shannan Waldrop on 05-17-2025 Hemoglobin (Bld) [Mass/Vol] 10.8 g/dL Low 12.0-15.0 [facility] Immature granulocytes/100 WB C Auto (Bld)Ordered By: Shannan Waldrop on 05-17-2025 Immature granulocytes/100 WBC (Bld) 0.500 % 0.0-0.9 [facility] MCV (mean corpuscular volume ) determinationOrdered By: Shannan Waldrop on 05-17-2025 MCV (RBC) [Entitic vol] 86.2 fL 81-99 [facility] Mean corpuscular hemoglobin (MCH) determinationOrdered By: Shannan Waldrop on 05-17-2025 MCH (RBC) [Entitic mass] 27.1 pg 27.0-32.0 [facility] Monocyte percentageOrdered B y: Shannan Waldrop on 05-17-2025 Monocytes/100 WBC (Bld) 10.2 % High 0-10 [facility] Neutrophil percentageOrdered By: Shannan Waldrop on 05-17-2025 Neutrophils/100 WBC (Bld) 72.9 % High 47-70 [facility] No Panel InformationOrdered By: Shannan Wadlrop on 05-17-2025 13 U/L <32 [facility] Oncology Visit Reporton 04-20 Oncology Visit Report Normal [facility] Phosphoruson 05-17-2025 Phosphate [Mass/Vol] 3.2 mg/dL Normal 2.7-4.5 [facility] Comment on above: Performed By: #### L 501.9520, L100.0100, L500.4050, L501.2300 ####[facility] [address] [place], [place], [address] Platelet countOrdered By: Adriana Waldrop on 05-17-2025 Platelets (Bld) [#/Vol] 315 10*3/uL 150-450 [facility] Potassium measurement (mass/ volume)Ordered By: Shannan Waldrop on 05-17-2025 Potassium (Unsp spec) [Mass/Vol] 4.2 mmol/L 3.3-5.1 [facility] RBC Auto (Bld) [#/Vol]Ordere d By: Shannan Waldrop on 05-17-2025 RBC (Bld) [#/Vol] 3.98 10*6/uL Low 4.2-5.4 [facility] Serum creatinine measurement (mass/volume)Ordered By: Shannan Waldrop on 05-17-2025 Creatinine [Mass/Vol] 0.73 mg/dL 0.70-1.20 [facility] Serum globulin measurementOr dered By: Shannan Waldrop on 05-17-2025 Globulin (S) [Mass/Vol] 3.1 g/dL 2.2-4.2 [facility] Serum glucose measurement (m ass/volume)Ordered By: Shannan Waldrop on 05-17-2025 Glucose [Mass/Vol] 187 mg/dL High 70-99 [facility] Serum or plasma alanine amezquita otransferase (ALT) measurementOrdered By: Shannan Waldrop on 05-17-2025 ALT [Catalytic activity/Vol] 11 U/L <35 [facility] Serum or plasma albumin joaquin urement (mass/volume)Ordered By: Shannan Waldrop on 05-17-2025 Albumin [Mass/Vol] 3.9 g/dL 3.4-4.8 [facility] Serum or plasma albumin/glob ulin mass ratioOrdered By: Shannan Waldrop on 05-17-2025 Albumin/Globulin [Mass ratio] 1.3 {ratio} 0.9-2.4 [facility] Serum or plasma alkaline gumaro sphatase measurementOrdered By: Shannan Waldrop on 05-17-2025 ALP [Catalytic activity/Vol] 78 U/L 35-104 [facility] Serum or plasma calcium joaquin urement (mass/volume)Ordered By: Shannan Waldrop on 05-17-2025 Calcium [Mass/Vol] 9.1 mg/dL 7.6-11.0 [facility] Serum or plasma urea nitroge n measurement (mass/volume)Ordered By: Shannan Waldrop on 05-17-2025 Urea nitrogen [Mass/Vol] 11 mg/dL 4-19 [facility] Sodium levelOrdered By: Spring Waldrop on 05-17-2025 Sodium [Moles/Vol] 137 mmol/L 133-145 [facility] TSH DL <= 0.005 mIU/L QnOrde red By: Shannan Waldrop on 05-17-2025 TSH Qn 12.700 uIU/mL High 0.300-4.200 [facility] Thyroid Stim Hormone (TSH)on 05-17-2025 TSH 12.700 uIU/mL High 0.300-4.200 [facility] Comment on above: Performed By: #### L [id number], L100.0100, L500.4050, L501.2300 ####[facility] [address] [place], [address] Total proteinOrdered By: Howard Loweryantelmo on 05-17-2025 Protein [Mass/Vol] 7.0 g/dL 5.9-8.4 [facility] White blood cell (WBC) count Ordered By: Shannan Benjie on 05-17-2025 WBC (Bld) [#/Vol] 7.5 10*3/uL 4.4-11.0 [facility] Absolute lymphocyte countOrd ered By: Shannan Benjie on 04-26-2025 Lymphocytes Auto (Unsp spec) [#/Vol] 1.17 10*3/uL 0.83-4.51 [facility] Absolute neutrophil countOrd ered By: [facility] on 04-26-2025 Neutrophils (Bld) [#/Vol] 6.4 10*3/uL 2.0-7.7 [facility] Anion gap in Serum or Plasma Ordered By: [facility] Ben[facility] on 04-26-2025 Anion gap [Moles/Vol] 16 mmol/L High 5-15 [facility] Automated lymphocyte count a s percentage of total leukocytesOrdered By: [facility] on 04-26-2025 Lymphocytes/100 WBC Auto (Unsp spec) 13.4 % Low 19-41 [facility] BUN/creatinine ratioOrdered By: Shannan Benjie on 04-26-2025 Urea nitrogen/Creatinine [Mass ratio] 14.0 mg/mg 10-20 [facility] Basophil percentageOrdered B y: Shannan Benjie on 04-26-2025 Basophils/100 WBC (Bld) 0.6 % 0-1 [facility] Bilirubin, totalOrdered By: Shannan Benjie on 04-26-2025 Bilirubin [Mass/Vol] 0.32 mg/dL 0.00-1.30 [facility] CBC W/Diff, Automatedon 09 Absolute Lymph 1.17 X10 3/uL Normal 0.83-4.51 [facility] Comment on above: Performed By: #### L 100.0100, L500.4050, L501.9520, L501.2300 ####[facility] [address] [place], [address] Absolute Neut 6.4 X10 3/uL Normal 2.0-7.7 [facility] Comment on above: Performed By: #### L 100.0100, L500.4050, L501.9520, L501.2300 ####[facility] [address] [place], [address] Basophils/100 WBC (Bld) 0.6 % Normal 0-1 [facility] Comment on above: Performed By: #### L 100.0100, L500.4050, L501.9520, L501.2300 ####[facility] [address] [place], [address] Eosinophils/100 WBC (Bld) 1.0 % Normal 0-5 [facility] Comment on above: Performed By: #### L 100.0100, L500.4050, L501.9520, L501.2300 ####[facility] [address] [place], [address] Erythrocyte distribution width (RBC) [Ratio] 19.4 % High 11.6-14.6 [facility] Comment on above: Performed By: #### L 100.0100, L500.4050, L501.9520, L501.2300 ####[facility] [address] [place], [address] Hematocrit (Bld) [Volume fraction] 34.5 % Low 37-47 [facility] Comment on above: Performed By: #### L 100.0100, L500.4050, L501.9520, L501.2300 ####[facility] [address] [place], [address] Hemoglobin (Bld) [Mass/Vol] 10.9 g/dL Low 12.0-15.0 [facility] Comment on above: Performed By: #### L 100.0100, L500.4050, L501.9520, L501.2300 ####[facility] [address] [place], [address] IG% 0.500 Normal 0.0-0.9 [facility] Comment on above: Result Comment: IG% - Immature Granulocytes (promyelocytes, myelocytes andmetamyelocytes) > 1% indicates that a LEFT SHIFT is Present. Performed By: #### L 100.0100, L500.4050, L501.9520, L501.2300 ####[facility] [address] [place], [address] Lymphocytes/100 WBC (Bld) 13.4 % Low 19-41 [facility] Comment on above: Performed By: #### L 100.0100, L500.4050, L501.9520, L501.2300 ####[facility] [address] [place], [address] MCH (RBC) [Entitic mass] 27.3 pg Normal 27.0-32.0 [facility] Comment on above: Performed By: #### L 100.0100, L500.4050, L501.9520, L501.2300 ####[facility] [address] [place], [address] MCHC (RBC) [Mass/Vol] 31.6 g/dL Low 32-36 [facility] Comment on above: Performed By: #### L 100.0100, L500.4050, L501.9520, L501.2300 ####[facility] [address] [place], [address] MCV (RBC) [Entitic vol] 86.5 fL Normal 81-99 [facility] Comment on above: Performed By: #### L 100.0100, L500.4050, L501.9520, L501.2300 ####[facility] [address] [place], [address] Monocytes/100 WBC (Bld) 11.3 % High 0-10 [facility] Comment on above: Performed By: #### L 100.0100, L500.4050, L501.9520, L501.2300 ####[facility] [address] [place], [address] Neutrophils/100 WBC (Bld) 73.2 % High 47-70 [facility] Comment on above: Performed By: #### L 100.0100, L500.4050, L501.9520, L501.2300 ####[facility] [address] [place], [address] Nucleated RBC (Bld) [#/Vol] 0 10*3/uL Normal 0-5 [facility] Comment on above: Performed By: #### L 100.0100, L500.4050, L501.9520, L501.2300 ####[facility] [address] [place], [address] Platelet mean volume (Bld) [Entitic vol] 8.6 fL Normal 6.2-12.0 [facility] Comment on above: Performed By: #### L 100.0100, L500.4050, L501.9520, L501.2300 ####[facility] [address] [place], [address] Platelets (Bld) [#/Vol] 293 10*3/uL Normal 150-450 [facility] Comment on above: Performed By: #### L 100.0100, L500.4050, L501.9520, L501.2300 ####[facility] [address] [place], [address] RBC (Bld) [#/Vol] 3.99 10*6/uL Low 4.2-5.4 [facility] Comment on above: Performed By: #### L 100.0100, L500.4050, L501.9520, L501.2300 ####[facility] [address] [place], [address] RDW SD 61.3 fl High 35.1-43.9 [facility] Comment on above: Performed By: #### L 100.0100, L500.4050, L501.9520, L501.2300 ####[facility] [address] [place], [address] WBC (Bld) [#/Vol] 8.8 10*3/uL Normal 4.4-11.0 [facility] Comment on above: Performed By: #### L 100.0100, L500.4050, L501.9520, L501.2300 ####[facility] [address] [place], [address] Carbon dioxide, total [Moles /volume] in Central venous bloodOrdered By: Shannan Waldrop on 04-26-2025 CO2 [Moles/Vol] 19.6 mmol/L Low 21.0-32.0 [facility] Chloride assayOrdered By: [place]ana Waldrop on 04-26-2025 Chloride [Moles/Vol] 102 mmol/L 98-108 [facility] Comprehensive Metabolic Prof ilon 04-26-2025 Albumin [Mass/Vol] 4.2 g/dL Normal 3.4-4.8 [facility] Comment on above: Performed By: #### L 100.0100, L500.4050, L501.9520, L501.2300 ####[facility] [address] [place], [address] Albumin/Globulin [Mass ratio] 1.3 {ratio} Normal 0.9-2.4 [facility] Comment on above: Performed By: #### L 100.0100, L500.4050, L501.9520, L501.2300 ####[facility] [address] [place], [address] ALK PHOS 80 U/L Normal 35-104 [facility] Comment on above: Performed By: #### L 100.0100, L500.4050, L501.9520, L501.2300 ####[facility] [address] [place], [address] ALT [Catalytic activity/Vol] 6 U/L Normal <=34 [facility] Comment on above: Performed By: #### L 100.0100, L500.4050, L501.9520, L501.2300 ####[facility] [address] [place], [address] AST [Catalytic activity/Vol] 18 U/L Normal <=31 [facility] Comment on above: Performed By: #### L 100.0100, L500.4050, L501.9520, L501.2300 ####[facility] [address] [place], [address] Bilirubin [Mass/Vol] 0.32 mg/dL Normal 0.00-1.30 [facility] Comment on above: Performed By: #### L 100.0100, L500.4050, L501.9520, L501.2300 ####[facility] [address] [place], [address] BUN/CRE 14.0 RATIO Normal 10-20 [facility] Comment on above: Performed By: #### L 100.0100, L500.4050, L501.9520, L501.2300 ####[facility] [address] [place], [address] Calcium [Mass/Vol] 9.3 mg/dL Normal 7.6-11.0 [facility] Comment on above: Performed By: #### L 100.0100, L500.4050, L501.9520, L501.2300 ####[facility] [address] [place], [address] Chloride [Moles/Vol] 102 mmol/L Normal 98-108 [facility] Comment on above: Performed By: #### L 100.0100, L500.4050, L501.9520, L501.2300 ####[facility] [address] [place], [address] CO2 [Moles/Vol] 19.6 mmol/L Low 21.0-32.0 [facility] Comment on above: Performed By: #### L 100.0100, L500.4050, L501.9520, L501.2300 ####[facility] [address] [place], [address] Creatinine [Mass/Vol] 0.73 mg/dL Normal 0.70-1.20 [facility] Comment on above: Performed By: #### L 100.0100, L500.4050, L501.9520, L501.2300 ####[facility] [address] [place], [address] ECRCL 65.10 ml/min Normal 50-250 [facility] Comment on above: Performed By: #### L 100.0100, L500.4050, L501.9520, L501.2300 ####[facility] [address] [place], [address] GAP 16 High 5-15 [facility] Comment on above: Performed By: #### L 100.0100, L500.4050, L501.9520, L501.2300 ####[facility] [address] [place], [address] GFR/1.73 sq M.predicted among non-blacks MDRD (S/P/Bld) [Vol rate/Area] 89 mL/min/{1.73_m2} Normal >60 [facility] Comment on above: Result Comment: mL/m in/1.73m2 CKD-EPI Creatinine Equation (2020) Performed By: #### L 100.0100, L500.4050, L501.9520, L501.2300 ####[facility] [address] [place], [address] Globulin (S) [Mass/Vol] 3.1 g/dL Normal 2.2-4.2 [facility] Comment on above: Performed By: #### L 100.0100, L500.4050, L501.9520, L501.2300 ####[facility] [address] [place], [address] Glucose [Mass/Vol] 184 mg/dL High 70-99 [facility] Comment on above: Performed By: #### L 100.0100, L500.4050, L501.9520, L501.2300 ####[facility] [address] [place], [address] Potassium [Moles/Vol] 4.1 mmol/L Normal 3.3-5.1 [facility] Comment on above: Performed By: #### L 100.0100, L500.4050, L501.9520, L501.2300 ####[facility] [address] [place], [address] Sodium [Moles/Vol] 138 mmol/L Normal 133-145 [facility] Comment on above: Performed By: #### L 100.0100, L500.4050, L501.9520, L501.2300 ####[facility] [address] [place], [address] T PROT 7.3 g/dL Normal 5.9-8.4 [facility] Comment on above: Performed By: #### L 100.0100, L500.4050, L501.9520, L501.2300 ####[facility] [address] [place], [address] Urea nitrogen [Mass/Vol] 10 mg/dL Normal 4-19 [facility] Comment on above: Performed By: #### L 100.0100, L500.4050, L501.9520, L501.2300 ####[facility] [address] [place], [address] Eosinophil percentageOrdered By: [facility] on 04-26-2025 Eosinophils/100 WBC (Bld) 1.0 % 0-5 [facility] Erythrocyte distribution wid th ratioOrdered By: [facility] on 04-26-2025 Erythrocyte distribution width (RBC) [Ratio] 19.4 % High 11.6-14.6 [facility] Erythrocyte distribution wid th standard deviationOrdered By: [facility] on 04-26-2025 Erythrocyte distribution width (RBC) [Ratio] 61.3 fl High 35.1-43.9 [facility] Glomerular filtration rate ( GFR) estimation/1.73 sq m using serum, plasma, or whole bOrdered By: [facility] on 04-26-2025 GFR/1.73 sq M.predicted among non-blacks MDRD (S/P/Bld) [Vol rate/Area] 89 mL/min/{1.73_m2} >60 [facility] Comment on above: mL/min/1.73m2 CKD-EP I Creatinine Equation (2020) Hematocrit Auto (Bld) [Volum e fraction]Ordered By: Shannan Waldrop on 04-26-2025 Hematocrit (Bld) [Volume fraction] 34.5 % Low 37-47 [facility] Hemoglobin measurementOrdere d By: Shannan Waldrop on 04-26-2025 Hemoglobin (Bld) [Mass/Vol] 10.9 g/dL Low 12.0-15.0 [facility] Immature granulocytes/100 WB C Auto (Bld)Ordered By: Shannan Waldrop on 04-26-2025 Immature granulocytes/100 WBC (Bld) 0.500 % 0.0-0.9 [facility] Comment on above: IG% - Immature Granu locytes (promyelocytes, myelocytes and metamyelocytes) > 1% indicates that a LEFT SHIFT is Present. L509.6001on 04-26-2025 CORTISOL 13.30 ug/dL Normal 6.02-18.40 [facility] Comment on above: Performed By: #### L 509.6001, L501.5200, L506.0400 ####[facility] [address] [place], [place], [address] Laboratory - Chemistry and C hemistry - challengeOrdered By: Shannan Waldrop on 04-26-2025 AST [Catalytic activity/Vol] 18 U/L <32 [facility] MCV (mean corpuscular volume ) determinationOrdered By: Shannan Waldrop on 04-26-2025 MCV (RBC) [Entitic vol] 86.5 fL 81-99 [facility] Magnesiumon 04-26-2025 Magnesium [Mass/Vol] 1.4 mg/dL Low 1.5-2.2 [facility] Comment on above: Performed By: #### L 509.6001, L501.5200, L506.0400 ####[facility] [address] [place], [place], [address] Magnesium measurement (mass/ volume)Ordered By: Shannan Waldrop on 04-26-2025 Magnesium (Unsp spec) [Mass/Vol] 1.4 mg/dL Low 1.5-2.2 [facility] Mean corpuscular hemoglobin (MCH) determinationOrdered By: Shannan Waldrop on 04-26-2025 MCH (RBC) [Entitic mass] 27.3 pg 27.0-32.0 [facility] Mean corpuscular hemoglobin concentration (MCHC) determinationOrdered By: Shannan Waldrop on 04-26-2025 MCHC (RBC) [Mass/Vol] 31.6 g/dL Low 32-36 [facility] Mean platelet volume determi nationOrdered By: Shannan Waldrop on 04-26-2025 Platelet mean volume (Bld) [Entitic vol] 8.6 fL 6.2-12.0 [facility] Monocyte percentageOrdered B y: Shannan Waldrop on 04-26-2025 Monocytes/100 WBC (Bld) 11.3 % High 0-10 [facility] Neutrophil percentageOrdered By: Shannan Waldrop on 04-26-2025 Neutrophils/100 WBC (Bld) 73.2 % High 47-70 [facility] No Panel InformationOrdered By: [facility] on 04-26-2025 18 U/L <32 [facility] Nucleated red blood cell per centageOrdered By: [facility] on 04-26-2025 Nucleated RBC/100 WBC (Bld) [Ratio] 0 % 0-5 [facility] Oncology Visit Reporton Oncology Visit Report Normal [facility] Phosphoruson 04-26-2025 Phosphate [Mass/Vol] 3.6 mg/dL Normal 2.7-4.5 [facility] Comment on above: Performed By: #### L 100.0100, L500.4050, L501.9520, L501.2300 ####[facility] [address] [place], [address] Platelet countOrdered By: Adriana Waldrop on 04-26-2025 Platelets (Bld) [#/Vol] 293 10*3/uL 150-450 [facility] Potassium measurement (mass/ volume)Ordered By: Shannan Waldrop on 04-26-2025 Potassium (Unsp spec) [Mass/Vol] 4.1 mmol/L 3.3-5.1 [facility] RBC Auto (Bld) [#/Vol]Ordere d By: Shannan Waldrop on 04-26-2025 RBC (Bld) [#/Vol] 3.99 10*6/uL Low 4.2-5.4 [facility] Serum creatinine measurement (mass/volume)Ordered By: Shannan Waldrop on 04-26-2025 Creatinine [Mass/Vol] 0.73 mg/dL 0.70-1.20 [facility] Serum globulin measurementOr dered By: Shannan Waldrop on 04-26-2025 Globulin (S) [Mass/Vol] 3.1 g/dL 2.2-4.2 [facility] Serum glucose measurement (m ass/volume)Ordered By: Shannan Waldrop on 04-26-2025 Glucose [Mass/Vol] 184 mg/dL High 70-99 [facility] Serum or plasma alanine amezquita otransferase (ALT) measurementOrdered By: Shannan Waldrop on 04-26-2025 ALT [Catalytic activity/Vol] 6 U/L <35 [facility] Serum or plasma albumin joaquin urement (mass/volume)Ordered By: Shannan Waldrop on 04-26-2025 Albumin [Mass/Vol] 4.2 g/dL 3.4-4.8 [facility] Serum or plasma albumin/glob ulin mass ratioOrdered By: Shannan Waldrop on 04-26-2025 Albumin/Globulin [Mass ratio] 1.3 {ratio} 0.9-2.4 [facility] Serum or plasma alkaline gumaro sphatase measurementOrdered By: Shannan Waldrop on 04-26-2025 ALP [Catalytic activity/Vol] 80 U/L 35-104 [facility] Serum or plasma calcium joaquin urement (mass/volume)Ordered By: Shannan Waldrop on 04-26-2025 Calcium [Mass/Vol] 9.3 mg/dL 7.6-11.0 [facility] Serum or plasma cortisol bryce surement (mass/volume)Ordered By: Shannan Waldrop on 04-26-2025 Cortisol [Mass/Vol] 13.30 ug/dL 6.02-18.40 [facility] Serum or plasma urea nitroge n measurement (mass/volume)Ordered By: hSannan Waldrop on 04-26-2025 Urea nitrogen [Mass/Vol] 10 mg/dL 4-19 [facility] Sodium levelOrdered By: Spring Waldrop on 04-26-2025 Sodium [Moles/Vol] 138 mmol/L 133-145 [facility] T4 Free Directon 04-26-2025 T4 FREE DIRECT 1.10 ng/dL Normal 0.76-1.46 [facility] Comment on above: Performed By: #### L 509.6001, L501.5200, L506.0400 ####[facility] [address], [address] T4 freeOrdered By: Shannan Horne nori on 04-26-2025 Free T4 [Mass/Vol] 1.10 ng/dL 0.76-1.46 [facility] TSH DL <= 0.005 mIU/L QnOrde red By: Shannan Benjie on 04-26-2025 TSH Qn 13.100 uIU/mL High 0.300-4.200 [facility] Thyroid Stim Hormone (TSH)on 04-26-2025 TSH 13.100 uIU/mL High 0.300-4.200 [facility] Comment on above: Performed By: #### L 100.0100, L500.4050, L501.9520, L501.2300 ####[facility] [address] [place], [place], [address] Total proteinOrdered By: Howard french Benjie on 04-26-2025 Protein [Mass/Vol] 7.3 g/dL 5.9-8.4 [facility] White blood cell (WBC) count Ordered By: Springja Waldrop on 04-26-2025 WBC (Bld) [#/Vol] 8.8 10*3/uL 4.4-11.0 [facility] Absolute lymphocyte countOrd ered By: Sharif Christianson on 04-21-2025 Lymphocytes Auto (Unsp spec) [#/Vol] 1.02 10*3/uL 0.83-4.51 [facility] Absolute neutrophil countOrd ered By: Sharif Christianson on 04-21-2025 Neutrophils (Bld) [#/Vol] 5.0 10*3/uL 2.0-7.7 [facility] Anion gap in Serum or Plasma Ordered By: Sharif Christianson on 04-21-2025 Anion gap [Moles/Vol] 15 mmol/L 5-15 [facility] Automated lymphocyte count a s percentage of total leukocytesOrdered By: Sharif Christianson on 04-21-2025 Lymphocytes/100 WBC Auto (Unsp spec) 14.4 % Low 19-41 [facility] BUN/creatinine ratioOrdered By: Sharif Christianson on 04-21-2025 Urea nitrogen/Creatinine [Mass ratio] 13.7 mg/mg 10-20 [facility] Basophil percentageOrdered B y: Sharif Christianson on 04-21-2025 Basophils/100 WBC (Bld) 0.6 % 0-1 [facility] Bilirubin Test strip Ql (U)O rdered By: Sharif Christianson on 04-21-2025 Bilirubin Ql (U) Negative Negative [facility] Bilirubin, totalOrdered By: Sharif Christianson on 04-21-2025 Bilirubin [Mass/Vol] 0.24 mg/dL 0.00-1.30 [facility] CBC W/Diff, Automatedon Absolute Lymph 1.02 X10 3/uL Normal 0.83-4.51 [facility] Comment on above: Order Comment: Order Date: 04/21/25Order Info: 0184-1 - CBCD Performed By: #### L 100.0100, L501.9520, L506.0400, L500.4050, L500.4100, L501.9985 ####[facility] [address] [facility] [place], [address] Absolute Neut 5.0 X10 3/uL Normal 2.0-7.7 [facility] Comment on above: Order Comment: Order Date: 04/21/25Order Info: 0184-1 - CBCD Performed By: #### L 100.0100, L501.9520, L506.0400, L500.4050, L500.4100, L501.9985 ####[facility] [address] [place], [address] Basophils/100 WBC (Bld) 0.6 % Normal 0-1 [facility] Comment on above: Order Comment: Order Date: 04/21/25Order Info: 0184-1 - CBCD Performed By: #### L 100.0100, L501.9520, L506.0400, L500.4050, L500.4100, L501.9985 ####[facility] [address] [place], [address] Eosinophils/100 WBC (Bld) 1.4 % Normal 0-5 [facility] Comment on above: Order Comment: Order Date: 04/21/25Order Info: 0184-1 - CBCD Performed By: #### L 100.0100, L501.9520, L506.0400, L500.4050, L500.4100, L501.9985 ####[facility] [address] [place], [address] Erythrocyte distribution width (RBC) [Ratio] 19.8 % High 11.6-14.6 [facility] Comment on above: Order Comment: Order Date: 04/21/25Order Info: 0184-1 - CBCD Performed By: #### L 100.0100, L501.9520, L506.0400, L500.4050, L500.4100, L501.9985 ####[facility] [address] [place], [address] Hematocrit (Bld) [Volume fraction] 35.0 % Low 37-47 [facility] Comment on above: Order Comment: Order Date: 04/21/25Order Info: 0184-1 - CBCD Performed By: #### L 100.0100, L501.9520, L506.0400, L500.4050, L500.4100, L501.9985 ####[facility] [address] [place], [address] Hemoglobin (Bld) [Mass/Vol] 10.8 g/dL Low 12.0-15.0 [facility] Comment on above: Order Comment: Order Date: 04/21/25Order Info: 0184-1 - CBCD Performed By: #### L 100.0100, L501.9520, L506.0400, L500.4050, L500.4100, L501.9985 ####[facility] [address] [place], [address] IG% 0.400 Normal 0.0-0.9 [facility] Comment on above: Order Comment: Order Date: 04/21/25Order Info: 0184-1 - CBCD Result Comment: IG% - Immature Granulocytes (promyelocytes, myelocytes andmetamyelocytes) > 1% indicates that a LEFT SHIFT is Present. Performed By: #### L 100.0100, L501.9520, L506.0400, L500.4050, L500.4100, L501.9985 ####[facility] [address] [place], [address] Lymphocytes/100 WBC (Bld) 14.4 % Low 19-41 [facility] Comment on above: Order Comment: Order Date: 04/21/25Order Info: 0184- - CBCD Performed By: #### L 100.0100, L501.9520, L506.0400, L500.4050, L500.4100, L501.9985 ####[facility] [address] [place], [address] MCH (RBC) [Entitic mass] 26.8 pg Low 27.0-32.0 [facility] Comment on above: Order Comment: Order Date: 04/21/25Order Info: 0184- - CBCD Performed By: #### L 100.0100, L501.9520, L506.0400, L500.4050, L500.4100, L501.9985 ####[facility] [address] [place], [address] MCHC (RBC) [Mass/Vol] 30.9 g/dL Low 32-36 [facility] Comment on above: Order Comment: Order Date: 04/21/25Order Info: 0184-1 - CBCD Performed By: #### L 100.0100, L501.9520, L506.0400, L500.4050, L500.4100, L501.9985 ####[facility] [address] [place], [address] MCV (RBC) [Entitic vol] 86.8 fL Normal 81-99 [facility] Comment on above: Order Comment: Order Date: 04/21/25Order Info: [id number] - CBCD Performed By: #### L 100.0100, L501.9520, L506.0400, L500.4050, L500.4100, L501.9985 ####[facility] [address], [address] Monocytes/100 WBC (Bld) 13.1 % High 0-10 [facility] Comment on above: Order Comment: Order Date: 04/21/25Order Info: [id number] - CBCD Performed By: #### L 100.0100, L501.9520, L506.0400, L500.4050, L500.4100, L501.9985 ####[facility] [address], [address] Neutrophils/100 WBC (Bld) 70.1 % High 47-70 [facility] Comment on above: Order Comment: Order Date: 04/21/25Order Info: [id number] - CBCD Performed By: #### L 100.0100, L501.9520, L506.0400, L500.4050, L500.4100, L501.9985 ####[facility] [address] [place], [address] Nucleated RBC (Bld) [#/Vol] 0 10*3/uL Normal 0-5 [facility] Comment on above: Order Comment: Order Date: 04/21/25Order Info: [id number] - CBCD Performed By: #### L 100.0100, L501.9520, L506.0400, L500.4050, L500.4100, L501.9985 ####[facility] [address] [place], [address] Platelet mean volume (Bld) [Entitic vol] 9.0 fL Normal 6.2-12.0 [facility] Comment on above: Order Comment: Order Date: 04/21/25Order Info: [id number] - CBCD Performed By: #### L 100.0100, L501.9520, L506.0400, L500.4050, L500.4100, L501.9985 ####[facility] [address] [place], [address] Platelets (Bld) [#/Vol] 317 10*3/uL Normal 150-450 [facility] Comment on above: Order Comment: Order Date: 04/21/25Order Info: 018- - CBCD Performed By: #### L 100.0100, L501.9520, L506.0400, L500.4050, L500.4100, L501.9985 ####[facility] [address] [place], [address] RBC (Bld) [#/Vol] 4.03 10*6/uL Low 4.2-5.4 [facility] Comment on above: Order Comment: Order Date: 04/21/25Order Info: [id number]- - CBCD Performed By: #### L 100.0100, L501.9520, L506.0400, L500.4050, L500.4100, L501.9985 ####[facility] [address] [place], [address] RDW SD 62.4 fl High 35.1-43.9 [facility] Comment on above: Order Comment: Order Date: 04/21/25Order Info: [id number] - CBCD Performed By: #### L 100.0100, L501.9520, L506.0400, L500.4050, L500.4100, L501.9985 ####[facility] [address], [address] WBC (Bld) [#/Vol] 7.1 10*3/uL Normal 4.4-11.0 [facility] Comment on above: Order Comment: Order Date: 04/21/25Order Info: [id number] - CBCD Performed By: #### L 100.0100, L501.9520, L506.0400, L500.4050, L500.4100, L501.9985 ####[facility] [address] [place], [address] Calculated very low density lipoprotein (VLDL) cholesterol measurementOrdered By: Sharif Christianson on 04-21-2025 Calculated very low density lipoprotein (VLDL) cholesterol measurement 23 mg/dL 5-40 [facility] Carbon dioxide, total [Moles /volume] in Central venous bloodOrdered By: Sharif Christianson on 04-21-2025 CO2 [Moles/Vol] 20.1 mmol/L Low 21.0-32.0 [facility] Chloride assayOrdered By: Yessenia Christianson on 04-21-2025 Chloride [Moles/Vol] 102 mmol/L 98-108 [facility] Comprehensive Metabolic Prof ilon 04-21-2025 Albumin [Mass/Vol] 3.9 g/dL Normal 3.4-4.8 [facility] Comment on above: Order Comment: Order Date: 04/21/25Order Info: [id number] - CMPOrder Info: [id number] - LIPIDOrder Info: [id number] - TSHOrder Info: [id number] - T4F Performed By: #### L 100.0100, L501.9520, L506.0400, L500.4050, L500.4100, L501.9985 ####[facility] [address], [address] Albumin/Globulin [Mass ratio] 1.3 {ratio} Normal 0.9-2.4 [facility] Comment on above: Order Comment: Order Date: 04/21/25Order Info: 86-1 - CMPOrder Info: [id number] - LIPIDOrder Info: [id number] - TSHOrder Info: 7 - T4F Performed By: #### L 100.0100, L501.9520, L506.0400, L500.4050, L500.4100, L501.9985 ####[facility] [address] [place], [place], [address] ALK PHOS 77 U/L Normal 35-104 [facility] Comment on above: Order Comment: Order Date: 04/21/25Order Info: [id number] - CMPOrder Info: [id number] - LIPIDOrder Info: [id number] - TSHOrder Info: [id number] - T4F Performed By: #### L 100.0100, L501.9520, L506.0400, L500.4050, L500.4100, L501.9985 ####[facility] [address] [place], [place], [address] ALT [Catalytic activity/Vol] 10 U/L Normal <=34 [facility] Comment on above: Order Comment: Order Date: 04/21/25Order Info: [id number]- - CMPOrder Info: - LIPIDOrder Info: [id number] - TSHOrder Info: 7 - T4F Performed By: #### L 100.0100, L501.9520, L506.0400, L500.4050, L500.4100, L501.9985 ####[facility] [address] [place], [place], [address] AST [Catalytic activity/Vol] 17 U/L Normal <=31 [facility] Comment on above: Order Comment: Order Date: 04/21/25Order Info: 86-1 - CMPOrder Info: [id number] - LIPIDOrder Info: [id number] - TSHOrder Info: [id number] - T4F Performed By: #### L 100.0100, L501.9520, L506.0400, L500.4050, L500.4100, L501.9985 ####[facility] [address] [place], [address] Bilirubin [Mass/Vol] 0.24 mg/dL Normal 0.00-1.30 [facility] Comment on above: Order Comment: Order Date: 04/21/25Order Info: [id number] - CMPOrder Info: [id number] - LIPIDOrder Info: [id number] - TSHOrder Info: [id number] - T4F Performed By: #### L 100.0100, L501.9520, L506.0400, L500.4050, L500.4100, L501.9985 ####[facility] [address] [place], [address] BUN/CRE 13.7 RATIO Normal 10-20 [facility] Comment on above: Order Comment: Order Date: 04/21/25Order Info: [id number] - CMPOrder Info: [id number] - LIPIDOrder Info: 3 - TSHOrder Info: [id number] - T4F Performed By: #### L 100.0100, L501.9520, L506.0400, L500.4050, L500.4100, L501.9985 ####[facility] [address] [place], [address] Calcium [Mass/Vol] 8.9 mg/dL Normal 7.6-11.0 [facility] Comment on above: Order Comment: Order Date: 04/21/25Order Info: [id number] - CMPOrder Info: [id number] - LIPIDOrder Info: [id number] - TSHOrder Info: [id number] - T4F Performed By: #### L 100.0100, L501.9520, L506.0400, L500.4050, L500.4100, L501.9985 ####[facility] [address] [place], [address] Chloride [Moles/Vol] 102 mmol/L Normal 98-108 [facility] Comment on above: Order Comment: Order Date: 04/21/25Order Info: [id number] - CMPOrder Info: [id number] - LIPIDOrder Info: [id number] - TSHOrder Info: [id number] - T4F Performed By: #### L 100.0100, L501.9520, L506.0400, L500.4050, L500.4100, L501.9985 ####[facility] [address] [place], [address] CO2 [Moles/Vol] 20.1 mmol/L Low 21.0-32.0 [facility] Comment on above: Order Comment: Order Date: 04/21/25Order Info: [id number] - CMPOrder Info: [id number] - LIPIDOrder Info: 6-3 - TSHOrder Info: [id number] - T4F Performed By: #### L 100.0100, L501.9520, L506.0400, L500.4050, L500.4100, L501.9985 ####[facility] [address] [place], [address] Creatinine [Mass/Vol] 0.79 mg/dL Normal 0.70-1.20 [facility] Comment on above: Order Comment: Order Date: 04/21/25Order Info: [id number] - CMPOrder Info: [id number] - LIPIDOrder Info: [id number] - TSHOrder Info: [id number] - T4F Performed By: #### L 100.0100, L501.9520, L506.0400, L500.4050, L500.4100, L501.9985 ####[facility] [address] [place], [address] GAP 15 Normal 5-15 [facility] Comment on above: Order Comment: Order Date: 04/21/25Order Info: [id number] - CMPOrder Info: [id number] - LIPIDOrder Info: [id number] - TSHOrder Info: [id number] - T4F Performed By: #### L 100.0100, L501.9520, L506.0400, L500.4050, L500.4100, L501.9985 ####[facility] [address], [address] GFR/1.73 sq M.predicted among non-blacks MDRD (S/P/Bld) [Vol rate/Area] 81 mL/min/{1.73_m2} Normal >60 [facility] Comment on above: Order Comment: Order Date: 04/21/25Order Info: 07- - CMPOrder Info: [id number] - LIPIDOrder Info: 3 - TSHOrder Info: 7 - T4F Result Comment: mL/m in/1.73m2 CKD-EPI Creatinine Equation (2020) Performed By: #### L 100.0100, L501.9520, L506.0400, L500.4050, L500.4100, L501.9985 ####[facility] [address] [place], [address] Globulin (S) [Mass/Vol] 3.1 g/dL Normal 2.2-4.2 [facility] Comment on above: Order Comment: Order Date: 04/21/25Order Info: 07- - CMPOrder Info: [id number] - LIPIDOrder Info: 3 - TSHOrder Info: 7 - T4F Performed By: #### L 100.0100, L501.9520, L506.0400, L500.4050, L500.4100, L501.9985 ####[facility] [address] [place], [address] Glucose [Mass/Vol] 150 mg/dL High 70-99 [facility] Comment on above: Order Comment: Order Date: 04/21/25Order Info: 07- - CMPOrder Info: [id number] - LIPIDOrder Info: 3 - TSHOrder Info: [id number] - T4F Performed By: #### L 100.0100, L501.9520, L506.0400, L500.4050, L500.4100, L501.9985 ####[facility] [address] [place], [address] Potassium [Moles/Vol] 4.2 mmol/L Normal 3.3-5.1 [facility] Comment on above: Order Comment: Order Date: 04/21/25Order Info: 86-1 - CMPOrder Info: [id number] - LIPIDOrder Info: 3 - TSHOrder Info: [id number] - T4F Performed By: #### L 100.0100, L501.9520, L506.0400, L500.4050, L500.4100, L501.9985 ####[facility] [address] [place], [address] Sodium [Moles/Vol] 138 mmol/L Normal 133-145 [facility] Comment on above: Order Comment: Order Date: 04/21/25Order Info: [id number] - CMPOrder Info: [id number] - LIPIDOrder Info: 3 - TSHOrder Info: [id number] - T4F Performed By: #### L 100.0100, L501.9520, L506.0400, L500.4050, L500.4100, L501.9985 ####[facility] [address] [place], [address] T PROT 7.0 g/dL Normal 5.9-8.4 [facility] Comment on above: Order Comment: Order Date: 04/21/25Order Info: 86-1 - CMPOrder Info: [id number] - LIPIDOrder Info: 63 - TSHOrder Info: [id number] - T4F Performed By: #### L 100.0100, L501.9520, L506.0400, L500.4050, L500.4100, L501.9985 ####[facility] [address] [place], [address] Urea nitrogen [Mass/Vol] 11 mg/dL Normal 4-19 [facility] Comment on above: Order Comment: Order Date: 04/21/25Order Info: [id number] - CMPOrder Info: [id number] - LIPIDOrder Info: [id number] - TSHOrder Info: [id number] - T4F Performed By: #### L 100.0100, L501.9520, L506.0400, L500.4050, L500.4100, L501.9985 ####[facility] [address] [place], [address] Eosinophil percentageOrdered By: Sharif Christianson on 04-21-2025 Eosinophils/100 WBC (Bld) 1.4 % 0-5 [facility] Erythrocyte distribution wid th ratioOrdered By: Sharif Christianson on 04-21-2025 Erythrocyte distribution width (RBC) [Ratio] 19.8 % High 11.6-14.6 [facility] Erythrocyte distribution wid th standard deviationOrdered By: Sharif Christianson on 04-21-2025 Erythrocyte distribution width (RBC) [Ratio] 62.4 fl High 35.1-43.9 [facility] Glomerular filtration rate ( GFR) estimation/1.73 sq m using serum, plasma, or whole bOrdered By: Sharif Christianson on 04-21-2025 GFR/1.73 sq M.predicted among non-blacks MDRD (S/P/Bld) [Vol rate/Area] 81 mL/min/{1.73_m2} >60 [facility] Comment on above: mL/min/1.73m2 CKD-EP I Creatinine Equation (2020) Hematocrit Auto (Bld) [Volum e fraction]Ordered By: Sharif Christianson on 04-21-2025 Hematocrit (Bld) [Volume fraction] 35.0 % Low 37-47 [facility] Hemoglobin A1con 04-21-2025 HbA1c (Bld) [Mass fraction] 7.1 % High <=5.6 [facility] Comment on above: Order Comment: Order Date: 04/21/25Order Info: [id number] - A1C Result Comment: Norm al < 5.7 % Prediabetic 5.7 - 6.4 % Diabetic >or= 6.5 % Please note range changes. Performed By: #### L 100.0100, L501.9520, L506.0400, L500.4050, L500.4100, L501.9985 ####[facility] [address] [place], [address] Hemoglobin A1c percentageOrd ered By: Sharif Christianson on 04-21-2025 HbA1c (Bld) [Mass fraction] 7.1 % High <5.7 [facility] Comment on above: Normal < 5.7 % Predi abetic 5.7 - 6.4 % Diabetic >or= 6.5 % Please note range changes. Hemoglobin measurementOrdere d By: Sharif Christianson on 04-21-2025 Hemoglobin (Bld) [Mass/Vol] 10.8 g/dL Low 12.0-15.0 [facility] Immature granulocytes/100 WB C Auto (Bld)Ordered By: Sharif Christianson on 04-21-2025 Immature granulocytes/100 WBC (Bld) 0.400 % 0.0-0.9 [facility] Comment on above: IG% - Immature Granu locytes (promyelocytes, myelocytes and metamyelocytes) > 1% indicates that a LEFT SHIFT is Present. Ketones Test strip Ql (U)Ord ered By: Sharif Christianson on 04-21-2025 Ketones Ql (U) Negative Negative [facility] LDL calc ser/plasOrdered By: Sharif Christianson on 04-21-2025 Cholesterol in LDL [Mass/Vol] 32 mg/dL [facility] Comment on above: Jhydplaxzf=582-892 m g/dL & Higher Abrg=434 mg/dL or greaterFriedwald Equation for LDL-C Laboratory - Chemistry and C hemistry - challengeOrdered By: Sharif Christianson on 04-21-2025 AST [Catalytic activity/Vol] 17 U/L <32 [facility] Lipid Profileon 04-21-2025 CHOL:HDL 2.10 Normal [facility] Comment on above: Order Comment: Order Date: 04/21/25Order Info: [id number] - CMPOrder Info: [id number] - LIPIDOrder Info: [id number] - TSHOrder Info: [id number] - T4F Performed By: #### L 100.0100, L501.9520, L506.0400, L500.4050, L500.4100, L501.9985 ####[facility] [address] [place], [address] Cholesterol [Mass/Vol] 105 mg/dL Normal <=200 [facility] Comment on above: Order Comment: Order Date: 04/21/25Order Info: [id number] - CMPOrder Info: [id number] - LIPIDOrder Info: 6-3 - TSHOrder Info: 7 - T4F Result Comment: Chol esterol level, Desirable <200 mg/dLBorderline high cholesterol 200-239 mg/dLHigh cholesterol >=240 mg/dLRecommendations of the NCEP Adult Treatment Panel for thefollowing risk-cutoff thresholds for the [place] [facility] center[facility]. Performed By: #### L 100.0100, L501.9520, L506.0400, L500.4050, L500.4100, L501.9985 ####[facility] [address] [place], [address] Cholesterol in HDL [Mass/Vol] 50 mg/dL Normal [facility] Comment on above: Order Comment: Order Date: 04/21/25Order Info: [id number] - CMPOrder Info: [id number] - LIPIDOrder Info: 3 - TSHOrder Info: [id number] - T4F Result Comment: Ledy onal Cholesterol Education Program (NCEP) guidelines:<40 mg/dL: Low HDL-cholesterol (major risk factor for CHD)>= 60 mg/dL: High HDL-cholesterol (negative risk factor forCHD)HDL-cholesterol is affected by a number of factors, e.g.smoking, exercise, hormones, sex and age. Performed By: #### L 100.0100, L501.9520, L506.0400, L500.4050, L500.4100, L501.9985 ####[facility] [address] [place], [address] Cholesterol in LDL [Mass/Vol] 32 mg/dL Normal [facility] Comment on above: Order Comment: Order Date: 04/21/25Order Info: [id number] - CMPOrder Info: [id number] - LIPIDOrder Info: 3 - TSHOrder Info: 7 - T4F Result Comment: Bord dinfqm=151-538 mg/dL Higher Pnst=870 mg/dL or greaterFriedwald Equation for LDL-C Performed By: #### L 100.0100, L501.9520, L506.0400, L500.4050, L500.4100, L501.9985 ####[facility] [address] [place], [place], [address] Cholesterol in VLDL [Mass/Vol] 23 mg/dL Normal 5-40 [facility] Comment on above: Order Comment: Order Date: 04/21/25Order Info: [id number] - CMPOrder Info: - LIPIDOrder Info: [id number] - TSHOrder Info: [id number] - T4F Performed By: #### L 100.0100, L501.9520, L506.0400, L500.4050, L500.4100, L501.9985 ####[facility] [address] [place], [place], [id number] Triglyceride [Mass/Vol] 113 mg/dL Normal [facility] Comment on above: Order Comment: Order Date: 04/21/25Order Info: [id number]- - CMPOrder Info: - LIPIDOrder Info: 3 - TSHOrder Info: 7 - T4F Result Comment: The drugs N-Acetylcysteine and Metamizole may falselydepress this assay.Normal range: <150 mg/dLBorderline High: 150-199 mg/dLHigh: 200-499 mg/dLVery High: >500 mg/dL Performed By: #### L 100.0100, L501.9520, L506.0400, L500.4050, L500.4100, L501.9985 ####[facility] [address] [place], [address] MCV (mean corpuscular volume ) determinationOrdered By: Sharif Christianson on 04-21-2025 MCV (RBC) [Entitic vol] 86.8 fL 81-99 [facility] Mean corpuscular hemoglobin (MCH) determinationOrdered By: Sharif Christianson on 04-21-2025 MCH (RBC) [Entitic mass] 26.8 pg Low 27.0-32.0 [facility] Mean corpuscular hemoglobin concentration (MCHC) determinationOrdered By: Sharif Christianson on 04-21-2025 MCHC (RBC) [Mass/Vol] 30.9 g/dL Low 32-36 [facility] Mean platelet volume determi nationOrdered By: Sharif Christianson on 04-21-2025 Platelet mean volume (Bld) [Entitic vol] 9.0 fL 6.2-12.0 [facility] Microscopic analysis of urin e for red blood cells (RBC)Ordered By: Sharif Christianson on 04-21-2025 Microscopic analysis of urine for red blood cells (RBC) 0 SEEN /hpf 0-5 [facility] Monocyte percentageOrdered B y: Sharif Christianson on 04-21-2025 Monocytes/100 WBC (Bld) 13.1 % High 0-10 [facility] Mucus LM Ql (Urine sed)Order ed By: Sharif Christianson on 04-21-2025 Mucus Ql (Urine sed) 0 SEEN /hpf [facility] Neutrophil percentageOrdered By: Sharif Christianson on 04-21-2025 Neutrophils/100 WBC (Bld) 70.1 % High 47-70 [facility] Nitrite Test strip Ql (U)Ord ered By: Sharif Christianson on 04-21-2025 Nitrite Ql (U) Negative Negative [facility] No Panel InformationOrdered By: Sharif Christianson on 04-21-2025 17 U/L <32 [facility] Nucleated red blood cell per centageOrdered By: Sharif Christianson on 04-21-2025 Nucleated RBC/100 WBC (Bld) [Ratio] 0 % 0-5 [facility] Platelet countOrdered By: Yessenia Christianson on 04-21-2025 Platelets (Bld) [#/Vol] 317 10*3/uL 150-450 [facility] Potassium measurement (mass/ volume)Ordered By: Sharif Christianson on 04-21-2025 Potassium (Unsp spec) [Mass/Vol] 4.2 mmol/L 3.3-5.1 [facility] Protein Test strip Ql (U)Ord ered By: Sharif Christianson on 04-21-2025 Protein Ql (U) 30 mg/dl High Negative [facility] RBC Auto (Bld) [#/Vol]Ordere d By: Sharif Christianson on 04-21-2025 RBC (Bld) [#/Vol] 4.03 10*6/uL Low 4.2-5.4 [facility] Screening total cholesterol/ high density lipoprotein (HDL) cholesterol ratioOrdered By: Sharif Christianson on 04-21-2025 Cholesterol.total/Cholest irasema in HDL [Mass ratio] 2.10 {ratio} [facility] Serum creatinine measurement (mass/volume)Ordered By: Sharif Christianson on 04-21-2025 Creatinine [Mass/Vol] 0.79 mg/dL 0.70-1.20 [facility] Serum globulin measurementOr dered By: Sharif Christianson on 04-21-2025 Globulin (S) [Mass/Vol] 3.1 g/dL 2.2-4.2 [facility] Serum glucose measurement (m ass/volume)Ordered By: Sharif Christianson on 04-21-2025 Glucose [Mass/Vol] 150 mg/dL High 70-99 [facility] Serum or plasma alanine amezquita otransferase (ALT) measurementOrdered By: Sharif Christianson on 04-21-2025 ALT [Catalytic activity/Vol] 10 U/L <35 [facility] Serum or plasma albumin joaquin urement (mass/volume)Ordered By: Sharif Christianson on 04-21-2025 Albumin [Mass/Vol] 3.9 g/dL 3.4-4.8 [facility] Serum or plasma albumin/glob ulin mass ratioOrdered By: Sharif Christianson on 04-21-2025 Albumin/Globulin [Mass ratio] 1.3 {ratio} 0.9-2.4 [facility] Serum or plasma alkaline gumaro sphatase measurementOrdered By: Sharif Christianson on 04-21-2025 ALP [Catalytic activity/Vol] 77 U/L 35-104 [facility] Serum or plasma calcium joaquin urement (mass/volume)Ordered By: Sharif Christianson on 04-21-2025 Calcium [Mass/Vol] 8.9 mg/dL 7.6-11.0 [facility] Serum or plasma cholesterol in HDL measurement (mass/volume)Ordered By: Sharif Christianson on 04-21-2025 Cholesterol in HDL [Mass/Vol] 50 mg/dL >40 [facility] Comment on above: National Cholesterol Education Program (NCEP) guidelines:<40 mg/dL: Low HDL-cholesterol (major risk factor for CHD)>= 60 mg/dL: High HDL-cholesterol (negative risk factor for CHD)HDL-cholesterol is affected by a number of factors, e.g. smoking, exercise, hormones, sex and age. Serum or plasma cholesterol measurement (mass/volume)Ordered By: Sharif Christianson on 04-21-2025 Cholesterol [Mass/Vol] 105 mg/dL <201 [facility] Comment on above: Cholesterol level, D esirable <200 mg/dLBorderline high cholesterol 200-239 mg/dLHigh cholesterol >=240 mg/dLRecommendations of the NCEP Adult Treatment Panel for the following risk-cutoff thresholds for the [place] population. Serum or plasma urea nitroge n measurement (mass/volume)Ordered By: Sharif Christianson on 04-21-2025 Urea nitrogen [Mass/Vol] 11 mg/dL 4-19 [facility] Sodium levelOrdered By: Sharif Christianson on 04-21-2025 Sodium [Moles/Vol] 138 mmol/L 133-145 [facility] Squamous epithelial cells de tection in urine sediment by light microscopyOrdered By: Sharif Christianson on 04-21-2025 Epithelial cells.squamous LM Ql (Urine sed) 0 SEEN /hpf 5-10 [facility] T4 Free Directon 04-21-2025 T4 FREE DIRECT 1.20 ng/dL Normal 0.76-1.46 [facility] Comment on above: Order Comment: Order Date: 04/21/25Order Info: [id number] - CMPOrder Info: [id number] - LIPIDOrder Info: [id number] - TSHOrder Info: [id number] - T4F Performed By: #### L 100.0100, L501.9520, L506.0400, L500.4050, L500.4100, L501.9985 ####[facility] [address] [place], [place], [id number] T4 freeOrdered By: Sharif moreira on 04-21-2025 Free T4 [Mass/Vol] 1.20 ng/dL 0.76-1.46 [facility] TSH DL <= 0.005 mIU/L QnOrde red By: Sharif Christianson on 04-21-2025 TSH Qn 18.000 uIU/mL High 0.300-4.200 [facility] Thyroid Stim Hormone (TSH)on 04-21-2025 TSH 18.000 uIU/mL High 0.300-4.200 [facility] Comment on above: Order Comment: Order Date: 04/21/25Order Info: [id number] - CMPOrder Info: [id number] - LIPIDOrder Info: [id number] - TSHOrder Info: [id number] - T4F Performed By: #### L 100.0100, L501.9520, L506.0400, L500.4050, L500.4100, L501.9985 ####[facility] [address] [place], [address] Total proteinOrdered By: Link Christianson on 04-21-2025 Protein [Mass/Vol] 7.0 g/dL 5.9-8.4 [facility] Triglycerides measurementOrd ered By: Sharif Christianson on 04-21-2025 Triglyceride [Mass/Vol] 113 mg/dL <199 [facility] Comment on above: The drugs N-Acetylcy steine and Metamizole may falsely depress this assay. Normal range: <150 mg/dLBorderline High: 150-199 mg/dLHigh: 200-499 mg/dLVery High: >500 mg/dL Urinalysis, Completeon 04-21 BACTERIA 0 SEEN Normal None Seen [facility] Comment on above: Order Comment: Urine , Random Performed By: #### L 400.0001 ####[facility] [address] [place], [address] EPI,SQUAMOUS 0 SEEN Normal 5-10 [facility] Comment on above: Order Comment: Urine , Random Performed By: #### L 400.0001 ####[facility] [address] [place], [address] Mucus Ql (Urine sed) 0 SEEN Normal [facility] Comment on above: Order Comment: Urine , Random Performed By: #### L 400.0001 ####[facility] [address] [place], [address] RBC 0 SEEN Normal 0-5 [facility] Comment on above: Order Comment: Urine , Random Performed By: #### L 400.0001 ####[facility] [address] [place], [address] WBC 0 SEEN Normal 0-5 [facility] Comment on above: Order Comment: Urine , Random Performed By: #### L 400.0001 ####[facility] [address] [place], [address] Urine clarityOrdered By: Link Christianson on 04-21-2025 Clarity (U) Clear Clear [facility] Urine color determinationOrd ered By: Sharif Christianson on 04-21-2025 Color (U) Yellow Yellow [facility] Urine glucose detectionOrder ed By: Sharif Christianson on 04-21-2025 Glucose Ql (U) Normal mg/dl Normal [facility] Urine leukocyte esterase det ection by dipstickOrdered By: Sharif Christianson on 04-21-2025 Leukocyte esterase Test strip Ql (U) 25 /ul High Negative [facility] Urine pHOrdered By: Sharif brasher on 04-21-2025 pH (U) 5.0 [pH] 5.0 - 8.0 [facility] Urine sediment bacteria coun t by microscopy (number/high power field)Ordered By: Sharif Christianson on 04-21-2025 Bacteria LM.HPF (Urine sed) [#/Area] 0 /[HPF] None Seen [facility] Urine specific gravity measu rementOrdered By: Sharif Christianson on 04-21-2025 Specific gravity (U) [Rel density] 1.020 1.002-1.030 [facility] Urine urobilinogen measureme ntOrdered By: Sharif Christianson on 04-21-2025 Urobilinogen Ql (U) Normal mg/dl Normal [facility] White blood cell (WBC) count Ordered By: Sharif Christianson on 04-21-2025 WBC (Bld) [#/Vol] 7.1 10*3/uL 4.4-11.0 [facility] White blood cell countOrdere d By: Sharif Christianson on 04-21-2025 White blood cell count 0 SEEN /hpf 0-5 [facility] Absolute lymphocyte countOrd ered By: Shannan Waldrop on 04-05-2025 Lymphocytes Auto (Unsp spec) [#/Vol] 1.37 10*3/uL 0.83-4.51 [facility] Absolute neutrophil countOrd ered By: [facility] on 04-05-2025 Neutrophils (Bld) [#/Vol] 6.5 10*3/uL 2.0-7.7 [facility] Anion gap in Serum or Plasma Ordered By: Shannan Waldrop on 04-05-2025 Anion gap [Moles/Vol] 18 mmol/L High 5-15 [facility] Automated lymphocyte count a s percentage of total leukocytesOrdered By: Shannan Waldrop on 04-05-2025 Lymphocytes/100 WBC Auto (Unsp spec) 15.1 % Low 19-41 [facility] BUN/creatinine ratioOrdered By: [facility] on 04-05-2025 Urea nitrogen/Creatinine [Mass ratio] 15.6 mg/mg 10-20 [facility] Basophil percentageOrdered B y: Shannan Waldrop on 04-05-2025 Basophils/100 WBC (Bld) 0.3 % 0-1 [facility] Bilirubin, totalOrdered By: Shannan Waldrop on 04-05-2025 Bilirubin [Mass/Vol] 0.29 mg/dL 0.00-1.30 [facility] CBC W/Diff, AutomatedOrdered By: Shannan Waldrop on 04-05-2025 Anisocytosis Ql (Bld) 1+ Normal [facility] Comment on above: Performed By: #### L 501.2300, L100.0100, L501.9520, L500.4050 ####[facility] [address] [place], [address] CTA Abd w/Runoff W/WO Contra ston 04-05-2025 CTA Abd w/Runoff W/WO Contrast Normal [facility] Carbon dioxide, total [Moles /volume] in Central venous bloodOrdered By: Shannan Waldrop on 04-05-2025 CO2 [Moles/Vol] 19.3 mmol/L Low 21.0-32.0 [facility] Cardiology Visit Reporton Cardiology Visit Report Normal [facility] Chloride assayOrdered By: Adriana Waldrop on 04-05-2025 Chloride [Moles/Vol] 100 mmol/L 98-108 [facility] Comprehensive Metabolic Prof ilon 04-05-2025 Albumin [Mass/Vol] 4.0 g/dL Normal 3.4-4.8 [facility] Comment on above: Performed By: #### L 501.2300, L100.0100, L501.9520, L500.4050 ####[facility] [address] [place], [address] Albumin/Globulin [Mass ratio] 1.4 {ratio} Normal 0.9-2.4 [facility] Comment on above: Performed By: #### L 501.2300, L100.0100, L501.9520, L500.4050 ####[facility] [address] [place], [address] ALK PHOS 73 U/L Normal 35-104 [facility] Comment on above: Performed By: #### L 501.2300, L100.0100, L501.9520, L500.4050 ####[facility] [address] [place], [address] ALT [Catalytic activity/Vol] 9 U/L Normal <=34 [facility] Comment on above: Performed By: #### L 501.2300, L100.0100, L501.9520, L500.4050 ####[facility] [address] [place], [address] AST [Catalytic activity/Vol] 17 U/L Normal <=31 [facility] Comment on above: Performed By: #### L 501.2300, L100.0100, L501.9520, L500.4050 ####[facility] [address] [place], [address] Bilirubin [Mass/Vol] 0.29 mg/dL Normal 0.00-1.30 [facility] Comment on above: Performed By: #### L 501.2300, L100.0100, L501.9520, L500.4050 ####[facility] [address] [place], [address] BUN/CRE 15.6 RATIO Normal 10-20 [facility] Comment on above: Performed By: #### L 501.2300, L100.0100, L501.9520, L500.4050 ####[facility] [address] [place], [address] Calcium [Mass/Vol] 9.3 mg/dL Normal 7.6-11.0 [facility] Comment on above: Performed By: #### L 501.2300, L100.0100, L501.9520, L500.4050 ####[facility] [address] [place], [address] Chloride [Moles/Vol] 100 mmol/L Normal 98-108 [facility] Comment on above: Performed By: #### L 501.2300, L100.0100, L501.9520, L500.4050 ####[facility] [address] [place], [address] CO2 [Moles/Vol] 19.3 mmol/L Low 21.0-32.0 [facility] Comment on above: Performed By: #### L 501.2300, L100.0100, L501.9520, L500.4050 ####[facility] [address] [place], [address] Creatinine [Mass/Vol] 0.74 mg/dL Normal 0.70-1.20 [facility] Comment on above: Performed By: #### L 501.2300, L100.0100, L501.9520, L500.4050 ####[facility] [address] [place], [address] ECRCL 64.88 ml/min Normal 50-250 [facility] Comment on above: Performed By: #### L 501.2300, L100.0100, L501.9520, L500.4050 ####[facility] [address] [place], [address] GAP 18 High 5-15 [facility] Comment on above: Performed By: #### L 501.2300, L100.0100, L501.9520, L500.4050 ####[facility] [address] [place], [address] GFR/1.73 sq M.predicted among non-blacks MDRD (S/P/Bld) [Vol rate/Area] 87 mL/min/{1.73_m2} Normal >60 [facility] Comment on above: Result Comment: mL/m in/1.73m2 CKD-EPI Creatinine Equation (2020) Performed By: #### L 501.2300, L100.0100, L501.9520, L500.4050 ####[facility] [address] [place], [address] Globulin (S) [Mass/Vol] 2.9 g/dL Normal 2.2-4.2 [facility] Comment on above: Performed By: #### L 501.2300, L100.0100, L501.9520, L500.4050 ####[facility] [address] [place], [address] Glucose [Mass/Vol] 158 mg/dL High 70-99 [facility] Comment on above: Performed By: #### L 501.2300, L100.0100, L501.9520, L500.4050 ####[facility] [address] [place], [address] Potassium [Moles/Vol] 4.5 mmol/L Normal 3.3-5.1 [facility] Comment on above: Performed By: #### L 501.2300, L100.0100, L501.9520, L500.4050 ####[facility] [address] [place], [address] Sodium [Moles/Vol] 137 mmol/L Normal 133-145 [facility] Comment on above: Performed By: #### L 501.2300, L100.0100, L501.9520, L500.4050 ####[facility] [address] [place], [address] T PROT 6.8 g/dL Normal 5.9-8.4 [facility] Comment on above: Performed By: #### L 501.2300, L100.0100, L501.9520, L500.4050 ####[facility] [address] [place], [address] Urea nitrogen [Mass/Vol] 12 mg/dL Normal 4-19 [facility] Comment on above: Performed By: #### L 501.2300, L100.0100, L501.9520, L500.4050 ####[facility] [address] [place], [address] Eosinophil percentageOrdered By: Shannan Waldrop on 04-05-2025 Eosinophils/100 WBC (Bld) 1.3 % 0-5 [facility] Erythrocyte distribution wid th ratioOrdered By: [facility] Wal[facility] on 04-05-2025 Erythrocyte distribution width (RBC) [Ratio] 20.9 % High 11.6-14.6 [facility] Erythrocyte distribution wid th standard deviationOrdered By: [facility] Wal[facility] on 04-05-2025 Erythrocyte distribution width (RBC) [Ratio] 66.0 fl High 35.1-43.9 [facility] Glomerular filtration rate ( GFR) estimation/1.73 sq m using serum, plasma, or whole bOrdered By: [facility] Wal[facility] on 04-05-2025 GFR/1.73 sq M.predicted among non-blacks MDRD (S/P/Bld) [Vol rate/Area] 87 mL/min/{1.73_m2} >60 [facility] Comment on above: mL/min/1.73m2 CKD-EP I Creatinine Equation (2020) Hematocrit Auto (Bld) [Volum e fraction]Ordered By: Shannan Waldrop on 04-05-2025 Hematocrit (Bld) [Volume fraction] 33.9 % Low 37-47 [facility] Hemoglobin measurementOrdere d By: Shannan Waldrop on 04-05-2025 Hemoglobin (Bld) [Mass/Vol] 10.5 g/dL Low 12.0-15.0 [facility] Immature granulocytes/100 WB C Auto (Bld)Ordered By: Shannan Waldrop on 04-05-2025 Immature granulocytes/100 WBC (Bld) 0.500 % 0.0-0.9 [facility] Comment on above: IG% - Immature Granu locytes (promyelocytes, myelocytes and metamyelocytes) > 1% indicates that a LEFT SHIFT is Present. Laboratory - Chemistry and C hemistry - challengeOrdered By: Shannan Waldrop on 04-05-2025 AST [Catalytic activity/Vol] 17 U/L <32 [facility] MCV (mean corpuscular volume ) determinationOrdered By: Shannan Waldrop on 04-05-2025 MCV (RBC) [Entitic vol] 86.7 fL 81-99 [facility] Mean corpuscular hemoglobin (MCH) determinationOrdered By: Shannan Waldrop on 04-05-2025 MCH (RBC) [Entitic mass] 26.9 pg Low 27.0-32.0 [facility] Mean corpuscular hemoglobin concentration (MCHC) determinationOrdered By: Shannan Waldrop on 04-05-2025 MCHC (RBC) [Mass/Vol] 31.0 g/dL Low 32-36 [facility] Mean platelet volume determi nationOrdered By: Shannan Waldrop on 04-05-2025 Platelet mean volume (Bld) [Entitic vol] 8.8 fL 6.2-12.0 [facility] Monocyte percentageOrdered B y: Shannan Waldrop on 04-05-2025 Monocytes/100 WBC (Bld) 11.5 % High 0-10 [facility] Neutrophil percentageOrdered By: Shannan Waldrop on 04-05-2025 Neutrophils/100 WBC (Bld) 71.3 % High 47-70 [facility] No Panel InformationOrdered By: Shannan Waldrop on 04-05-2025 1+ [facility] Nucleated red blood cell per centageOrdered By: Shannan Waldrop on 04-05-2025 Nucleated RBC/100 WBC (Bld) [Ratio] 0 % 0-5 [facility] Oncology Visit Reporton 03-18 Oncology Visit Report Normal [facility] Phosphoruson 04-05-2025 Phosphate [Mass/Vol] 3.6 mg/dL Normal 2.7-4.5 [facility] Comment on above: Performed By: #### L 501.2300, L100.0100, L501.9520, L500.4050 ####[facility] [address] [place], [address] Platelet countOrdered By: Adriana Waldrop on 04-05-2025 Platelets (Bld) [#/Vol] 288 10*3/uL 150-450 [facility] Potassium measurement (mass/ volume)Ordered By: Shannan Waldrop on 04-05-2025 Potassium (Unsp spec) [Mass/Vol] 4.5 mmol/L 3.3-5.1 [facility] RBC Auto (Bld) [#/Vol]Ordere d By: Shannan Waldrop on 04-05-2025 RBC (Bld) [#/Vol] 3.91 10*6/uL Low 4.2-5.4 [facility] Serum creatinine measurement (mass/volume)Ordered By: Shannan Waldrop on 04-05-2025 Creatinine [Mass/Vol] 0.74 mg/dL 0.70-1.20 [facility] Serum globulin measurementOr dered By: Shannan Waldrop on 04-05-2025 Globulin (S) [Mass/Vol] 2.9 g/dL 2.2-4.2 [facility] Serum glucose measurement (m ass/volume)Ordered By: Shannan Waldrop on 04-05-2025 Glucose [Mass/Vol] 158 mg/dL High 70-99 [facility] Serum or plasma alanine amezquita otransferase (ALT) measurementOrdered By: Shannan Waldrop on 04-05-2025 ALT [Catalytic activity/Vol] 9 U/L <35 [facility] Serum or plasma albumin joaquin urement (mass/volume)Ordered By: Shannan Waldrop on 04-05-2025 Albumin [Mass/Vol] 4.0 g/dL 3.4-4.8 [facility] Serum or plasma albumin/glob ulin mass ratioOrdered By: Shannan Waldrop on 04-05-2025 Albumin/Globulin [Mass ratio] 1.4 {ratio} 0.9-2.4 [facility] Serum or plasma alkaline gumaro sphatase measurementOrdered By: Shannan Waldrop on 04-05-2025 ALP [Catalytic activity/Vol] 73 U/L 35-104 [facility] Serum or plasma calcium joaquin urement (mass/volume)Ordered By: Shannan Waldrop on 04-05-2025 Calcium [Mass/Vol] 9.3 mg/dL 7.6-11.0 [facility] Serum or plasma urea nitroge n measurement (mass/volume)Ordered By: Shannan Waldrop on 04-05-2025 Urea nitrogen [Mass/Vol] 12 mg/dL 4-19 [facility] Sodium levelOrdered By: Spring peres Benjie on 04-05-2025 Sodium [Moles/Vol] 137 mmol/L 133-145 [facility] TSH DL <= 0.005 mIU/L QnOrde red By: Springja Waldrop on 04-05-2025 TSH Qn 38.500 uIU/mL High 0.300-4.200 [facility] Thyroid Stim Hormone (TSH)on 04-05-2025 TSH 38.500 uIU/mL High 0.300-4.200 [facility] Comment on above: Performed By: #### L 501.2300, L100.0100, L501.9520, L500.4050 ####[facility] [address] [place], [address] Total proteinOrdered By: Howard french Benjie on 04-05-2025 Protein [Mass/Vol] 6.8 g/dL 5.9-8.4 [facility] White blood cell (WBC) count Ordered By: Springja Waldrop on 04-05-2025 WBC (Bld) [#/Vol] 9.1 10*3/uL 4.4-11.0 [facility] CT Chest AND Abd W/ Contrast on 03-28-2025 CT Chest AND Abd W/ Contrast Normal [facility] Absolute lymphocyte countOrd ered By: Shannan Waldrop on 03-15-2025 Lymphocytes Auto (Unsp spec) [#/Vol] 1.05 10*3/uL 0.83-4.51 [facility] Absolute neutrophil countOrd ered By: Shannan Waldrop on 03-15-2025 Neutrophils (Bld) [#/Vol] 5.3 10*3/uL 2.0-7.7 [facility] Anion gap in Serum or Plasma Ordered By: Shannan Waldrop on 03-15-2025 Anion gap [Moles/Vol] 15 mmol/L 5-15 [facility] Automated lymphocyte count a s percentage of total leukocytesOrdered By: Shannan Waldrop on 03-15-2025 Lymphocytes/100 WBC Auto (Unsp spec) 14.0 % Low 19-41 [facility] BUN/creatinine ratioOrdered By: Shannan Waldrop on 03-15-2025 Urea nitrogen/Creatinine [Mass ratio] 9.3 mg/mg Low 10-20 [facility] Basophil percentageOrdered B y: Shannan Waldrop on 03-15-2025 Basophils/100 WBC (Bld) 0.5 % 0-1 [facility] Bilirubin, totalOrdered By: Shannan Waldrop on 03-15-2025 Bilirubin [Mass/Vol] 0.28 mg/dL 0.00-1.30 [facility] CBC W/Diff, Automatedon 02-16 Anisocytosis Ql (Bld) 1+ Normal [facility] Comment on above: Performed By: #### L 100.0100, L500.4050, L501.9520, L501.2300 ####[facility] [address] [place], [address] MACROCYTOSIS 1+ Normal [facility] Comment on above: Performed By: #### L 100.0100, L500.4050, L501.9520, L501.2300 ####[facility] [address] [place], [address] OVALOCYTE 1+ Normal [facility] Comment on above: Performed By: #### L 100.0100, L500.4050, L501.9520, L501.2300 ####[facility] [address] [place], [address] PLT EST A Normal ADEQ [facility] Comment on above: Performed By: #### L 100.0100, L500.4050, L501.9520, L501.2300 ####[facility] [address] [place], [address] Carbon dioxide, total [Moles /volume] in Central venous bloodOrdered By: Shannan Waldrop on 03-15-2025 CO2 [Moles/Vol] 20.0 mmol/L Low 21.0-32.0 [facility] Chloride assayOrdered By: Adriana Waldrop on 03-15-2025 Chloride [Moles/Vol] 102 mmol/L 98-108 [facility] Comprehensive Metabolic Prof ilon 03-15-2025 Albumin [Mass/Vol] 4.0 g/dL Normal 3.4-4.8 [facility] Comment on above: Performed By: #### L 100.0100, L500.4050, L501.9520, L501.2300 ####[facility] [address] [place], [address] Albumin/Globulin [Mass ratio] 1.4 {ratio} Normal 0.9-2.4 [facility] Comment on above: Performed By: #### L 100.0100, L500.4050, L501.9520, L501.2300 ####[facility] [address] [place], [address] ALK PHOS 74 U/L Normal 35-104 [facility] Comment on above: Performed By: #### L 100.0100, L500.4050, L501.9520, L501.2300 ####[facility] [address] [place], [address] ALT [Catalytic activity/Vol] 9 U/L Normal <=34 [facility] Comment on above: Performed By: #### L 100.0100, L500.4050, L501.9520, L501.2300 ####[facility] [address] [place], [address] AST [Catalytic activity/Vol] 18 U/L Normal <=31 [facility] Comment on above: Performed By: #### L 100.0100, L500.4050, L501.9520, L501.2300 ####[facility] [address] [place], [address] Bilirubin [Mass/Vol] 0.28 mg/dL Normal 0.00-1.30 [facility] Comment on above: Performed By: #### L 100.0100, L500.4050, L501.9520, L501.2300 ####[facility] [address], [address] BUN/CRE 9.3 RATIO Low 10-20 [facility] Comment on above: Performed By: #### L 100.0100, L500.4050, L501.9520, L501.2300 ####[facility] [address] [place], [address] Calcium [Mass/Vol] 8.9 mg/dL Normal 7.6-11.0 [facility] Comment on above: Performed By: #### L 100.0100, L500.4050, L501.9520, L501.2300 ####[facility] [address], [address] Chloride [Moles/Vol] 102 mmol/L Normal 98-108 [facility] Comment on above: Performed By: #### L 100.0100, L500.4050, L501.9520, L501.2300 ####[facility] [address] [place], [address] CO2 [Moles/Vol] 20.0 mmol/L Low 21.0-32.0 [facility] Comment on above: Performed By: #### L 100.0100, L500.4050, L501.9520, L501.2300 ####[facility] [address] [place], [address] Creatinine [Mass/Vol] 0.79 mg/dL Normal 0.70-1.20 [facility] Comment on above: Performed By: #### L 100.0100, L500.4050, L501.9520, L501.2300 ####[facility] [address] [place], [address] ECRCL 64.72 ml/min Normal 50-250 [facility] Comment on above: Performed By: #### L 100.0100, L500.4050, L501.9520, L501.2300 ####[facility] [address] [place], [address] GAP 15 Normal 5-15 [facility] Comment on above: Performed By: #### L 100.0100, L500.4050, L501.9520, L501.2300 ####[facility] [address] [place], [address] GFR/1.73 sq M.predicted among non-blacks MDRD (S/P/Bld) [Vol rate/Area] 81 mL/min/{1.73_m2} Normal >60 [facility] Comment on above: Result Comment: mL/m in/1.73m2 CKD-EPI Creatinine Equation (2020) Performed By: #### L 100.0100, L500.4050, L501.9520, L501.2300 ####[facility] [facility] [address] [place], [address] Globulin (S) [Mass/Vol] 2.8 g/dL Normal 2.2-4.2 [facility] Comment on above: Performed By: #### L 100.0100, L500.4050, L501.9520, L501.2300 ####[facility] [address] [place], [address] Glucose [Mass/Vol] 152 mg/dL High 70-99 [facility] Comment on above: Performed By: #### L 100.0100, L500.4050, L501.9520, L501.2300 ####[facility] [address] [place], [address] Potassium [Moles/Vol] 4.1 mmol/L Normal 3.3-5.1 [facility] Comment on above: Performed By: #### L 100.0100, L500.4050, L501.9520, L501.2300 ####[facility] [address] [place], [address] Sodium [Moles/Vol] 137 mmol/L Normal 133-145 [facility] Comment on above: Performed By: #### L 100.0100, L500.4050, L501.9520, L501.2300 ####[facility] [address] [place], [address] T PROT 6.8 g/dL Normal 5.9-8.4 [facility] Comment on above: Performed By: #### L 100.0100, L500.4050, L501.9520, L501.2300 ####[facility] [address] [place], [address] Urea nitrogen [Mass/Vol] 7 mg/dL Normal 4-19 [facility] Comment on above: Performed By: #### L 100.0100, L500.4050, L501.9520, L501.2300 ####[facility] [address] [place], [address] Eosinophil percentageOrdered By: Shannan Waldrop on 03-15-2025 Eosinophils/100 WBC (Bld) 2.0 % 0-5 [facility] Erythrocyte distribution wid th ratioOrdered By: Shannan Waldrop on 03-15-2025 Erythrocyte distribution width (RBC) [Ratio] 20.6 % High 11.6-14.6 [facility] Erythrocyte distribution wid th standard deviationOrdered By: Shannan Waldrop on 03-15-2025 Erythrocyte distribution width (RBC) [Ratio] 63.2 fl High 35.1-43.9 [facility] Glomerular filtration rate ( GFR) estimation/1.73 sq m using serum, plasma, or whole bOrdered By: Shannan Waldrop on 03-15-2025 GFR/1.73 sq M.predicted among non-blacks MDRD (S/P/Bld) [Vol rate/Area] 81 mL/min/{1.73_m2} >60 [facility] Comment on above: mL/min/1.73m2 CKD-EP I Creatinine Equation (2020) Hematocrit Auto (Bld) [Volum e fraction]Ordered By: [facility] on 03-15-2025 Hematocrit (Bld) [Volume fraction] 33.2 % Low 37-47 [facility] Hemoglobin measurementOrdere d By: Shannan Waldrop on 03-15-2025 Hemoglobin (Bld) [Mass/Vol] 10.4 g/dL Low 12.0-15.0 [facility] Immature granulocytes/100 WB C Auto (Bld)Ordered By: [facility] Wal[facility] on 03-15-2025 Immature granulocytes/100 WBC (Bld) 0.400 % 0.0-0.9 [facility] Comment on above: IG% - Immature Granu locytes (promyelocytes, myelocytes and metamyelocytes) > 1% indicates that a LEFT SHIFT is Present. Laboratory - Chemistry and C hemistry - challengeOrdered By: [facility] on 03-15-2025 AST [Catalytic activity/Vol] 18 U/L <32 [facility] Laboratory - Hematology and Cell countsOrdered By: [facility] on 03-15-2025 Anisocytosis Ql (Bld) 1+ [facility] MCV (mean corpuscular volume ) determinationOrdered By: [facility] Waldrop on 03-15-2025 MCV (RBC) [Entitic vol] 84.9 fL 81-99 [facility] Macrocytes detectionOrdered By: [facility] Wal[facility] on 03-15-2025 Macrocytes Ql (Bld) 1+ [facility] Magnesiumon 03-15-2025 Magnesium [Mass/Vol] 1.5 mg/dL Normal 1.5-2.2 [facility] Comment on above: Performed By: #### L 501.5200, L506.0400 ####[facility] [address] [place], [address] Magnesium measurement (mass/ volume)Ordered By: Shannan Waldrop on 03-15-2025 Magnesium (Unsp spec) [Mass/Vol] 1.5 mg/dL 1.5-2.2 [facility] Mean corpuscular hemoglobin (MCH) determinationOrdered By: Shannan Waldrop on 03-15-2025 MCH (RBC) [Entitic mass] 26.6 pg Low 27.0-32.0 [facility] Mean corpuscular hemoglobin concentration (MCHC) determinationOrdered By: [facility] Wal[facility] on 03-15-2025 MCHC (RBC) [Mass/Vol] 31.3 g/dL Low 32-36 [facility] Mean platelet volume determi nationOrdered By: Shannan Waldrop on 03-15-2025 Platelet mean volume (Bld) [Entitic vol] 8.8 fL 6.2-12.0 [facility] Monocyte percentageOrdered B y: Shannan Waldrop on 03-15-2025 Monocytes/100 WBC (Bld) 13.1 % High 0-10 [facility] Neutrophil percentageOrdered By: [facility] Benjie on 03-15-2025 Neutrophils/100 WBC (Bld) 70.0 % 47-70 [facility] Nucleated red blood cell per centageOrdered By: [facility] Waldrop on 03-15-2025 Nucleated RBC/100 WBC (Bld) [Ratio] 0 % 0-5 [facility] Oncology Visit Reporton 02-16 Oncology Visit Report Normal [facility] Ovalocyte detectionOrdered B y: Shannan Waldrop on 03-15-2025 Ovalocytes LM Ql (Bld) 1+ [facility] Phosphoruson 03-15-2025 Phosphate [Mass/Vol] 2.9 mg/dL Normal 2.7-4.5 [facility] Comment on above: Performed By: #### L 100.0100, L500.4050, L501.9520, L501.2300 ####[facility] [address] [place], [address] Platelet countOrdered By: Adriana Waldrop on 03-15-2025 Platelets (Bld) [#/Vol] 248 10*3/uL 150-450 [facility] Platelet estimateOrdered By: Shannan Waldrop on 03-15-2025 Platelets LM Ql (Bld) A ADEQ [facility] Potassium measurement (mass/ volume)Ordered By: Shannan Waldrop on 03-15-2025 Potassium (Unsp spec) [Mass/Vol] 4.1 mmol/L 3.3-5.1 [facility] RBC Auto (Bld) [#/Vol]Ordere d By: Shannan Waldrop on 03-15-2025 RBC (Bld) [#/Vol] 3.91 10*6/uL Low 4.2-5.4 [facility] Serum creatinine measurement (mass/volume)Ordered By: Shannan Waldrop on 03-15-2025 Creatinine [Mass/Vol] 0.79 mg/dL 0.70-1.20 [facility] Serum globulin measurementOr dered By: Shannan Waldrop on 03-15-2025 Globulin (S) [Mass/Vol] 2.8 g/dL 2.2-4.2 [facility] Serum glucose measurement (m ass/volume)Ordered By: Shannan Waldrop on 03-15-2025 Glucose [Mass/Vol] 152 mg/dL High 70-99 [facility] Serum or plasma alanine amezquita otransferase (ALT) measurementOrdered By: Shannan Waldrop on 03-15-2025 ALT [Catalytic activity/Vol] 9 U/L <35 [facility] Serum or plasma albumin joaquin urement (mass/volume)Ordered By: Shannan Waldrop on 03-15-2025 Albumin [Mass/Vol] 4.0 g/dL 3.4-4.8 [facility] Serum or plasma albumin/glob ulin mass ratioOrdered By: Shannan Waldrop on 03-15-2025 Albumin/Globulin [Mass ratio] 1.4 {ratio} 0.9-2.4 [facility] Serum or plasma alkaline gumaro sphatase measurementOrdered By: Shannan Waldrop on 03-15-2025 ALP [Catalytic activity/Vol] 74 U/L 35-104 [facility] Serum or plasma calcium joaquin urement (mass/volume)Ordered By: Shannan Waldrop on 03-15-2025 Calcium [Mass/Vol] 8.9 mg/dL 7.6-11.0 [facility] Serum or plasma urea nitroge n measurement (mass/volume)Ordered By: Shannan Loweryantelmo on 03-15-2025 Urea nitrogen [Mass/Vol] 7 mg/dL 4-19 [facility] Sodium levelOrdered By: Spring Loweryantelmo on 03-15-2025 Sodium [Moles/Vol] 137 mmol/L 133-145 [facility] T4 Free Directon 03-15-2025 T4 FREE DIRECT 0.50 ng/dL Low 0.76-1.46 [facility] Comment on above: Performed By: #### L 501.5200, L506.0400 ####[facility] [address] [place], [place], [id number] T4 freeOrdered By: Shannan Horne nori on 03-15-2025 Free T4 [Mass/Vol] 0.50 ng/dL Low 0.76-1.46 [facility] TSH DL <= 0.005 mIU/L QnOrde red By: Shannan Loweryantelmo on 03-15-2025 TSH Qn 45.800 uIU/mL High 0.300-4.200 [facility] Thyroid Stim Hormone (TSH)on 03-15-2025 TSH 45.800 uIU/mL High 0.300-4.200 [facility] Comment on above: Performed By: #### L 100.0100, L500.4050, L501.9520, L501.2300 ####[facility] [address] [place], [place], [id number] Total proteinOrdered By: Howard Loweryantelmo on 03-15-2025 Protein [Mass/Vol] 6.8 g/dL 5.9-8.4 [facility] Vitamin B12on 03-15-2025 Cobalamin (Vitamin B12) [Mass/Vol] 527 pg/mL Normal 180-914 [facility] Comment on above: Order Comment: ADD O N Performed By: #### L 503.0106 ####[facility] [address] [place], [address] Vitamin B12 ser/plasOrdered By: Nic Hall on 03-15-2025 Cobalamin (Vitamin B12) [Mass/Vol] 527 pg/mL 180-914 [facility] White blood cell (WBC) count Ordered By: Shannan Waldrop on 03-15-2025 WBC (Bld) [#/Vol] 7.5 10*3/uL 4.4-11.0 [facility] Lumbar Spine 2 or 3 Viewson 03-08-2025 Lumbar Spine 2 or 3 Views Normal [facility] MR/BMS.BVSon 03-08-2025 MR/BMS.BVS Normal [facility] Absolute lymphocyte countOrd ered By: Shannan Waldrop on 02-22-2025 Lymphocytes Auto (Unsp spec) [#/Vol] 1.16 10*3/uL 0.83-4.51 [facility] Absolute neutrophil countOrd ered By: Shannan Waldrop on 02-22-2025 Neutrophils (Bld) [#/Vol] 5.6 10*3/uL 2.0-7.7 [facility] Anion gap in Serum or Plasma Ordered By: Shannan Waldrop on 02-22-2025 Anion gap [Moles/Vol] 14 mmol/L 5-15 [facility] Automated lymphocyte count a s percentage of total leukocytesOrdered By: Shannan Waldrop on 02-22-2025 Lymphocytes/100 WBC Auto (Unsp spec) 15.0 % Low 19-41 [facility] BUN/creatinine ratioOrdered By: Shannan Waldrop on 02-22-2025 Urea nitrogen/Creatinine [Mass ratio] 11.1 mg/mg 10-20 [facility] Basophil percentageOrdered B y: Shannan Waldrop on 02-22-2025 Basophils/100 WBC (Bld) 0.3 % 0-1 [facility] Bilirubin, totalOrdered By: Shannan Waldrop on 02-22-2025 Bilirubin [Mass/Vol] 0.37 mg/dL 0.00-1.30 [facility] CBC W/Diff, Automatedon 07 Absolute Lymph 1.16 X10 3/uL Normal 0.83-4.51 [facility] Comment on above: Performed By: #### L 501.9520, L100.0100, L500.4050, L501.2300 ####[facility] [address] [place], [address] Absolute Neut 5.6 X10 3/uL Normal 2.0-7.7 [facility] Comment on above: Performed By: #### L 501.9520, L100.0100, L500.4050, L501.2300 ####[facility] [address], [address] Basophils/100 WBC (Bld) 0.3 % Normal 0-1 [facility] Comment on above: Performed By: #### L 501.9520, L100.0100, L500.4050, L501.2300 ####[facility] [address] [place], [address] Eosinophils/100 WBC (Bld) 1.3 % Normal 0-5 [facility] Comment on above: Performed By: #### L 501.9520, L100.0100, L500.4050, L501.2300 ####[facility] [address] [place], [address] Erythrocyte distribution width (RBC) [Ratio] 19.8 % High 11.6-14.6 [facility] Comment on above: Performed By: #### L 501.9520, L100.0100, L500.4050, L501.2300 ####[facility] [address] [place], [address] Hematocrit (Bld) [Volume fraction] 33.5 % Low 37-47 [facility] Comment on above: Performed By: #### L 501.9520, L100.0100, L500.4050, L501.2300 ####[facility] [address], [address] Hemoglobin (Bld) [Mass/Vol] 10.3 g/dL Low 12.0-15.0 [facility] Comment on above: Performed By: #### L 501.9520, L100.0100, L500.4050, L501.2300 ####[facility] [address] [place], [address] IG% 0.100 Normal 0.0-0.9 [facility] Comment on above: Result Comment: IG% - Immature Granulocytes (promyelocytes, myelocytes andmetamyelocytes) > 1% indicates that a LEFT SHIFT is Present. Performed By: #### L 501.9520, L100.0100, L500.4050, L501.2300 ####[facility] [address] [place], [address] Lymphocytes/100 WBC (Bld) 15.0 % Low 19-41 [facility] Comment on above: Performed By: #### L 501.9520, L100.0100, L500.4050, L501.2300 ####[facility] [address] [place], [address] MCH (RBC) [Entitic mass] 25.9 pg Low 27.0-32.0 [facility] Comment on above: Performed By: #### L 501.9520, L100.0100, L500.4050, L501.2300 ####[facility] [address] [place], [address] MCHC (RBC) [Mass/Vol] 30.7 g/dL Low 32-36 [facility] Comment on above: Performed By: #### L 501.9520, L100.0100, L500.4050, L501.2300 ####[facility] [address] [place], [address] MCV (RBC) [Entitic vol] 84.4 fL Normal 81-99 [facility] Comment on above: Performed By: #### L 501.9520, L100.0100, L500.4050, L501.2300 ####[facility] [address] [place], [address] Monocytes/100 WBC (Bld) 11.1 % High 0-10 [facility] Comment on above: Performed By: #### L 501.9520, L100.0100, L500.4050, L501.2300 ####[facility] [address] [place], [address] Neutrophils/100 WBC (Bld) 72.2 % High 47-70 [facility] Comment on above: Performed By: #### L 501.9520, L100.0100, L500.4050, L501.2300 ####[facility] [address] [place], [address] Nucleated RBC (Bld) [#/Vol] 0 10*3/uL Normal 0-5 [facility] Comment on above: Performed By: #### L 501.9520, L100.0100, L500.4050, L501.2300 ####[facility] [address] [place], [address] Platelet mean volume (Bld) [Entitic vol] 8.6 fL Normal 6.2-12.0 [facility] Comment on above: Performed By: #### L 501.9520, L100.0100, L500.4050, L501.2300 ####[facility] [address] [place], [address] Platelets (Bld) [#/Vol] 306 10*3/uL Normal 150-450 [facility] Comment on above: Performed By: #### L 501.9520, L100.0100, L500.4050, L501.2300 ####[facility] [address] [place], [address] RBC (Bld) [#/Vol] 3.97 10*6/uL Low 4.2-5.4 [facility] Comment on above: Performed By: #### L 501.9520, L100.0100, L500.4050, L501.2300 ####[facility] [address] [place], [address] RDW SD 60.5 fl High 35.1-43.9 [facility] Comment on above: Performed By: #### L 501.9520, L100.0100, L500.4050, L501.2300 ####[facility] [address] [place], [address] WBC (Bld) [#/Vol] 7.8 10*3/uL Normal 4.4-11.0 [facility] Comment on above: Performed By: #### L 501.9520, L100.0100, L500.4050, L501.2300 ####[facility] [address] [place], [address] Carbon dioxide, total [Moles /volume] in Central venous bloodOrdered By: Shannan Waldrop on 02-22-2025 CO2 [Moles/Vol] 21.2 mmol/L 21.0-32.0 [facility] Chloride assayOrdered By: Adriana Waldrop on 02-22-2025 Chloride [Moles/Vol] 103 mmol/L 98-108 [facility] Comprehensive Metabolic Prof ilon 02-22-2025 Albumin [Mass/Vol] 4.0 g/dL Normal 3.4-4.8 [facility] Comment on above: Performed By: #### L 501.9520, L100.0100, L500.4050, L501.2300 ####[facility] [address] [place], [address] Albumin/Globulin [Mass ratio] 1.5 {ratio} Normal 0.9-2.4 [facility] Comment on above: Performed By: #### L 501.9520, L100.0100, L500.4050, L501.2300 ####[facility] [address] [place], [address] ALK PHOS 83 U/L Normal 35-104 [facility] Comment on above: Performed By: #### L 501.9520, L100.0100, L500.4050, L501.2300 ####[facility] [address] [place], [address] ALT [Catalytic activity/Vol] 9 U/L Normal <=34 [facility] Comment on above: Performed By: #### L 501.9520, L100.0100, L500.4050, L501.2300 ####[facility] [address] [place], [address] AST [Catalytic activity/Vol] 18 U/L Normal <=31 [facility] Comment on above: Performed By: #### L 501.9520, L100.0100, L500.4050, L501.2300 ####[facility] [address] [place], [address] Bilirubin [Mass/Vol] 0.37 mg/dL Normal 0.00-1.30 [facility] Comment on above: Performed By: #### L 501.9520, L100.0100, L500.4050, L501.2300 ####[facility] [address] [place], [address] BUN/CRE 11.1 RATIO Normal 10-20 [facility] Comment on above: Performed By: #### L 501.9520, L100.0100, L500.4050, L501.2300 ####[facility] [address] [place], [address] Calcium [Mass/Vol] 8.6 mg/dL Normal 7.6-11.0 [facility] Comment on above: Performed By: #### L 501.9520, L100.0100, L500.4050, L501.2300 ####[facility] [address], [address] Chloride [Moles/Vol] 103 mmol/L Normal 98-108 [facility] Comment on above: Performed By: #### L 501.9520, L100.0100, L500.4050, L501.2300 ####[facility] [address] [place], [address] CO2 [Moles/Vol] 21.2 mmol/L Normal 21.0-32.0 [facility] Comment on above: Performed By: #### L 501.9520, L100.0100, L500.4050, L501.2300 ####[facility] [address] [place], [address] Creatinine [Mass/Vol] 0.88 mg/dL Normal 0.70-1.20 [facility] Comment on above: Performed By: #### L 501.9520, L100.0100, L500.4050, L501.2300 ####[facility] [address] [place], [address] ECRCL 58.84 ml/min Normal 50-250 [facility] Comment on above: Performed By: #### L 501.9520, L100.0100, L500.4050, L501.2300 ####[facility] [address], [address] GAP 14 Normal 5-15 [facility] Comment on above: Performed By: #### L 501.9520, L100.0100, L500.4050, L501.2300 ####[facility] [address] [place], [address] GFR/1.73 sq M.predicted among non-blacks MDRD (S/P/Bld) [Vol rate/Area] 71 mL/min/{1.73_m2} Normal >60 [facility] Comment on above: Result Comment: mL/m in/1.73m2 CKD-EPI Creatinine Equation (2020) Performed By: #### L 501.9520, L100.0100, L500.4050, L501.2300 ####[facility] [address] [place], [address] Globulin (S) [Mass/Vol] 2.8 g/dL Normal 2.2-4.2 [facility] Comment on above: Performed By: #### L 501.9520, L100.0100, L500.4050, L501.2300 ####[facility] [address] [place], [address] Glucose [Mass/Vol] 222 mg/dL High 70-99 [facility] Comment on above: Performed By: #### L 501.9520, L100.0100, L500.4050, L501.2300 ####[facility] [address] [place], [address] Potassium [Moles/Vol] 4.1 mmol/L Normal 3.3-5.1 [facility] Comment on above: Performed By: #### L 501.9520, L100.0100, L500.4050, L501.2300 ####[facility] [address] [place], [address] Sodium [Moles/Vol] 138 mmol/L Normal 133-145 [facility] Comment on above: Performed By: #### L 501.9520, L100.0100, L500.4050, L501.2300 ####[facility] [address] [place], [address] T PROT 6.8 g/dL Normal 5.9-8.4 [facility] Comment on above: Performed By: #### L 501.9520, L100.0100, L500.4050, L501.2300 ####[facility] [address] [place], [address] Urea nitrogen [Mass/Vol] 10 mg/dL Normal 4-19 [facility] Comment on above: Performed By: #### L 501.9520, L100.0100, L500.4050, L501.2300 ####[facility] [address] [place], [address] Eosinophil percentageOrdered By: Shannan Waldrop on 02-22-2025 Eosinophils/100 WBC (Bld) 1.3 % 0-5 [facility] Erythrocyte distribution wid th ratioOrdered By: [facility] on 02-22-2025 Erythrocyte distribution width (RBC) [Ratio] 19.8 % High 11.6-14.6 [facility] Erythrocyte distribution wid th standard deviationOrdered By: [facility] Wal[facility] on 02-22-2025 Erythrocyte distribution width (RBC) [Ratio] 60.5 fl High 35.1-43.9 [facility] Glomerular filtration rate ( GFR) estimation/1.73 sq m using serum, plasma, or whole bOrdered By: [facility] Wal[facility] on 02-22-2025 GFR/1.73 sq M.predicted among non-blacks MDRD (S/P/Bld) [Vol rate/Area] 71 mL/min/{1.73_m2} >60 [facility] Comment on above: mL/min/1.73m2 CKD-EP I Creatinine Equation (2020) Hematocrit Auto (Bld) [Volum e fraction]Ordered By: Shannan Waldrop on 02-22-2025 Hematocrit (Bld) [Volume fraction] 33.5 % Low 37-47 [facility] Hemoglobin measurementOrdere d By: Shannan Waldrop on 02-22-2025 Hemoglobin (Bld) [Mass/Vol] 10.3 g/dL Low 12.0-15.0 [facility] Immature granulocytes/100 WB C Auto (Bld)Ordered By: Shannna Waldrop on 02-22-2025 Immature granulocytes/100 WBC (Bld) 0.100 % 0.0-0.9 [facility] Comment on above: IG% - Immature Granu locytes (promyelocytes, myelocytes and metamyelocytes) > 1% indicates that a LEFT SHIFT is Present. Laboratory - Chemistry and C hemistry - challengeOrdered By: Shannan Waldrop on 02-22-2025 AST [Catalytic activity/Vol] 18 U/L <32 [facility] MCV (mean corpuscular volume ) determinationOrdered By: Shannan Waldrop on 02-22-2025 MCV (RBC) [Entitic vol] 84.4 fL 81-99 [facility] Mean corpuscular hemoglobin (MCH) determinationOrdered By: [facility] Wal[facility] on 02-22-2025 MCH (RBC) [Entitic mass] 25.9 pg Low 27.0-32.0 [facility] Mean corpuscular hemoglobin concentration (MCHC) determinationOrdered By: Shannan Waldrop on 02-22-2025 MCHC (RBC) [Mass/Vol] 30.7 g/dL Low 32-36 [facility] Mean platelet volume determi nationOrdered By: Shannan Waldrop on 02-22-2025 Platelet mean volume (Bld) [Entitic vol] 8.6 fL 6.2-12.0 [facility] Monocyte percentageOrdered B y: Shannan Waldrop on 02-22-2025 Monocytes/100 WBC (Bld) 11.1 % High 0-10 [facility] Neutrophil percentageOrdered By: [facility] Benjie on 02-22-2025 Neutrophils/100 WBC (Bld) 72.2 % High 47-70 [facility] Nucleated red blood cell per centageOrdered By: [facility] Wal[facility] on 02-22-2025 Nucleated RBC/100 WBC (Bld) [Ratio] 0 % 0-5 [facility] Oncology Visit Reporton Oncology Visit Report Normal [facility] Phosphoruson 02-22-2025 Phosphate [Mass/Vol] 2.8 mg/dL Normal 2.7-4.5 [facility] Comment on above: Performed By: #### L 501.0407, L100.0100, L500.4050, L501.2300 ####[facility] [address] [place], [address] Platelet countOrdered By: Adriana Waldrop on 02-22-2025 Platelets (Bld) [#/Vol] 306 10*3/uL 150-450 [facility] Potassium measurement (mass/ volume)Ordered By: Shannan Waldrop on 02-22-2025 Potassium (Unsp spec) [Mass/Vol] 4.1 mmol/L 3.3-5.1 [facility] RBC Auto (Bld) [#/Vol]Ordere d By: Shannan Waldrop on 02-22-2025 RBC (Bld) [#/Vol] 3.97 10*6/uL Low 4.2-5.4 [facility] Serum creatinine measurement (mass/volume)Ordered By: Shannan Waldrop on 02-22-2025 Creatinine [Mass/Vol] 0.88 mg/dL 0.70-1.20 [facility] Serum globulin measurementOr dered By: Shannan Waldrop on 02-22-2025 Globulin (S) [Mass/Vol] 2.8 g/dL 2.2-4.2 [facility] Serum glucose measurement (m ass/volume)Ordered By: Shannan Waldrop on 02-22-2025 Glucose [Mass/Vol] 222 mg/dL High 70-99 [facility] Serum or plasma alanine amezquita otransferase (ALT) measurementOrdered By: Shannan Waldrop on 02-22-2025 ALT [Catalytic activity/Vol] 9 U/L <35 [facility] Serum or plasma albumin joaquin urement (mass/volume)Ordered By: Shannan Waldrop on 02-22-2025 Albumin [Mass/Vol] 4.0 g/dL 3.4-4.8 [facility] Serum or plasma albumin/glob ulin mass ratioOrdered By: Shannan Waldrop on 02-22-2025 Albumin/Globulin [Mass ratio] 1.5 {ratio} 0.9-2.4 [facility] Serum or plasma alkaline gumaro sphatase measurementOrdered By: Shannan Waldrop on 02-22-2025 ALP [Catalytic activity/Vol] 83 U/L 35-104 [facility] Serum or plasma calcium joaquin urement (mass/volume)Ordered By: Shannan Benjie on 02-22-2025 Calcium [Mass/Vol] 8.6 mg/dL 7.6-11.0 [facility] Serum or plasma urea nitroge n measurement (mass/volume)Ordered By: Springja Waldrop on 02-22-2025 Urea nitrogen [Mass/Vol] 10 mg/dL 4-19 [facility] Sodium levelOrdered By: Spring peres Benjie on 02-22-2025 Sodium [Moles/Vol] 138 mmol/L 133-145 [facility] TSH DL <= 0.005 mIU/L QnOrde red By: Shannan Benjie on 02-22-2025 TSH Qn 34.600 uIU/mL High 0.300-4.200 [facility] Thyroid Stim Hormone (TSH)on 02-22-2025 TSH 34.600 uIU/mL High 0.300-4.200 [facility] Comment on above: Performed By: #### L 501.9520, L100.0100, L500.4050, L501.2300 ####[facility] [address] [place], [place], [id number] Total proteinOrdered By: Howard french Benjie on 02-22-2025 Protein [Mass/Vol] 6.8 g/dL 5.9-8.4 [facility] White blood cell (WBC) count Ordered By: Springja Waldrop on 02-22-2025 WBC (Bld) [#/Vol] 7.8 10*3/uL 4.4-11.0 [facility] CBC W/Diff, Automatedon 07-0 Absolute Neut Normal 2.0-7.7 [facility] Comment on above: Result Comment: NO S PECIMENS COLLECTED Performed By: #### L 100.0100, L500.4050 ####[facility] [address] [place], [address] HCT Normal 37-47 [facility] Comment on above: Result Comment: NO S PECIMENS COLLECTED Performed By: #### L 100.0100, L500.4050 ####[facility] [address] [place], [address] HGB Normal 12.0-15.0 [facility] Comment on above: Result Comment: NO S PECIMENS COLLECTED Performed By: #### L 100.0100, L500.4050 ####[facility] [address] [place], [address] MCH Normal 27.0-32.0 [facility] Comment on above: Result Comment: NO S PECIMENS COLLECTED Performed By: #### L 100.0100, L500.4050 ####[facility] [address] [place], [address] MCHC Normal 32-36 [facility] Comment on above: Result Comment: NO S PECIMENS COLLECTED Performed By: #### L 100.0100, L500.4050 ####[facility] [address] [place], [address] MCV Normal 81-99 [facility] Comment on above: Result Comment: NO S PECIMENS COLLECTED Performed By: #### L 100.0100, L500.4050 ####[facility] [address] [place], [address] NEUT% Normal 47-70 [facility] Comment on above: Result Comment: NO S PECIMENS COLLECTED Performed By: #### L 100.0100, L500.4050 ####[facility] [address] [place], [address] PLT Normal 150-450 [facility] Comment on above: Result Comment: NO S PECIMENS COLLECTED Performed By: #### L 100.0100, L500.4050 ####[facility] [address] [place], [address] RBC Normal 4.2-5.4 [facility] Comment on above: Result Comment: NO S PECIMENS COLLECTED Performed By: #### L 100.0100, L500.4050 ####[facility] [address] [place], [address] RDW CV Normal 11.6-14.6 [facility] Comment on above: Result Comment: NO S PECIMENS COLLECTED Performed By: #### L 100.0100, L500.4050 ####[facility] [address] [place], [address] RDW SD Normal 35.1-43.9 [facility] Comment on above: Result Comment: NO S PECIMENS COLLECTED Performed By: #### L 100.0100, L500.4050 ####[facility] [address] [place], [address] WBC Normal 4.4-11.0 [facility] Comment on above: Result Comment: NO S PECIMENS COLLECTED Performed By: #### L 100.0100, L500.4050 ####[facility] [address] [place], [address] Comprehensive Metabolic Prof ilon 02-15-2025 ALB Normal 3.4-4.8 [facility] Comment on above: Result Comment: NO S PECIMENS COLLECTED Performed By: #### L 100.0100, L500.4050 ####[facility] [address] [place], [address] ALK PHOS Normal 35-104 [facility] Comment on above: Result Comment: NO S PECIMENS COLLECTED Performed By: #### L 100.0100, L500.4050 ####[facility] [address] [place], [address] ALT Normal <=34 [facility] Comment on above: Result Comment: NO S PECIMENS COLLECTED Performed By: #### L 100.0100, L500.4050 ####[facility] [address] [place], [address] AST Normal <=31 [facility] Comment on above: Result Comment: NO S PECIMENS COLLECTED Performed By: #### L 100.0100, L500.4050 ####[facility] [address] [place], [address] BUN Normal 4-19 [facility] Comment on above: Result Comment: NO S PECIMENS COLLECTED Performed By: #### L 100.0100, L500.4050 ####[facility] [address] [place], [address] BUN/CRE Normal 10-20 [facility] Comment on above: Result Comment: NO S PECIMENS COLLECTED Performed By: #### L 100.0100, L500.4050 ####[facility] [address] [place], [address] Calcium Normal 7.6-11.0 [facility] Comment on above: Result Comment: NO S PECIMENS COLLECTED Performed By: #### L 100.0100, L500.4050 ####[facility] [address] [place], [address] CL Normal 98-108 [facility] Comment on above: Result Comment: NO S PECIMENS COLLECTED Performed By: #### L 100.0100, L500.4050 ####[facility] [address] [place], [address] CO2 Normal 21.0-32.0 [facility] Comment on above: Result Comment: NO S PECIMENS COLLECTED Performed By: #### L 100.0100, L500.4050 ####[facility] [address] [place], [address] CREAT,SERUM Normal 0.70-1.20 [facility] Comment on above: Result Comment: NO S PECIMENS COLLECTED Performed By: #### L 100.0100, L500.4050 ####[facility] [address] [place], [address] eGFR Normal >60 [facility] Comment on above: Result Comment: NO S PECIMENS COLLECTED Performed By: #### L 100.0100, L500.4050 ####[facility] [address] [place], [address] GAP Normal 5-15 [facility] Comment on above: Result Comment: NO S PECIMENS COLLECTED Performed By: #### L 100.0100, L500.4050 ####[facility] [address] [place], [address] GLU Normal 70-99 [facility] Comment on above: Result Comment: NO S PECIMENS COLLECTED Performed By: #### L 100.0100, L500.4050 ####[facility] [address] [place], [address] Potassium Normal 3.3-5.1 [facility] Comment on above: Result Comment: NO S PECIMENS COLLECTED Performed By: #### L 100.0100, L500.4050 ####[facility] [address] [place], [address] T BILI Normal 0.00-1.30 [facility] Comment on above: Result Comment: NO S PECIMENS COLLECTED Performed By: #### L 100.0100, L500.4050 ####[facility] [address] [place], [address] T PROT Normal 5.9-8.4 [facility] Comment on above: Result Comment: NO S PECIMENS COLLECTED Performed By: #### L 100.0100, L500.4050 ####[facility] [address] [place], [address] Comprehensive Metabolic Profil Normal 133-145 [facility] Comment on above: Result Comment: NO S PECIMENS COLLECTED Performed By: #### L 100.0100, L500.4050 ####[facility] [address], [address] Absolute lymphocyte countOrd ered By: [facility] Wal[facility] on 01-25-2025 Lymphocytes Auto (Unsp spec) [#/Vol] 1.26 10*3/uL 0.83-4.51 [facility] Absolute neutrophil countOrd ered By: [facility] Wal[facility] on 01-25-2025 Neutrophils (Bld) [#/Vol] 4.8 10*3/uL 2.0-7.7 [facility] Anion gap in Serum or Plasma Ordered By: Shannan Waldrop on 01-25-2025 Anion gap [Moles/Vol] 15 mmol/L 5-15 [facility] Automated lymphocyte count a s percentage of total leukocytesOrdered By: Shannan Waldrop on 01-25-2025 Lymphocytes/100 WBC Auto (Unsp spec) 18.4 % Low 19-41 [facility] BUN/creatinine ratioOrdered By: [facility] on 01-25-2025 Urea nitrogen/Creatinine [Mass ratio] 11.9 mg/mg 10- [facility] Basophil percentageOrdered B y: Shannan Waldrop on 01-25-2025 Basophils/100 WBC (Bld) 0.4 % 0- [facility] Bilirubin, totalOrdered By: Shannan Waldrop on 01-25-2025 Bilirubin [Mass/Vol] 0.29 mg/dL 0.00-1.30 [facility] CBC W/Diff, Automatedon 01-16 Absolute Lymph 1.26 X10 3/uL Normal 0.83-4.51 [facility] Comment on above: Performed By: #### L 501.2300, L100.0100, L501.9520, L500.4050 ####[facility] [address] [place], [address] Absolute Neut 4.8 X10 3/uL Normal 2.0-7.7 [facility] Comment on above: Performed By: #### L 501.2300, L100.0100, L501.9520, L500.4050 ####[facility] [address] [place], [address] Basophils/100 WBC (Bld) 0.4 % Normal 0-1 [facility] Comment on above: Performed By: #### L 501.2300, L100.0100, L501.9520, L500.4050 ####[facility] [address] [place], [address] Eosinophils/100 WBC (Bld) 1.5 % Normal 0-5 [facility] Comment on above: Performed By: #### L 501.2300, L100.0100, L501.9520, L500.4050 ####[facility] [address] [place], [address] Erythrocyte distribution width (RBC) [Ratio] 18.6 % High 11.6-14.6 [facility] Comment on above: Performed By: #### L 501.2300, L100.0100, L501.9520, L500.4050 ####[facility] [address] [place], [address] Hematocrit (Bld) [Volume fraction] 33.3 % Low 37-47 [facility] Comment on above: Performed By: #### L 501.2300, L100.0100, L501.9520, L500.4050 ####[facility] [address] [place], [address] Hemoglobin (Bld) [Mass/Vol] 10.3 g/dL Low 12.0-15.0 [facility] Comment on above: Performed By: #### L 501.2300, L100.0100, L501.9520, L500.4050 ####[facility] [address] [place], [address] IG% 0.600 Normal 0.0-0.9 [facility] Comment on above: Result Comment: IG% - Immature Granulocytes (promyelocytes, myelocytes andmetamyelocytes) > 1% indicates that a LEFT SHIFT is Present. Performed By: #### L 501.2300, L100.0100, L501.9520, L500.4050 ####[facility] [address] [place], [address] Lymphocytes/100 WBC (Bld) 18.4 % Low 19-41 [facility] Comment on above: Performed By: #### L 501.2300, L100.0100, L501.9520, L500.4050 ####[facility] [address] [place], [address] MCH (RBC) [Entitic mass] 25.3 pg Low 27.0-32.0 [facility] Comment on above: Performed By: #### L 501.2300, L100.0100, L501.9520, L500.4050 ####[facility] [address] [place], [address] MCHC (RBC) [Mass/Vol] 30.9 g/dL Low 32-36 [facility] Comment on above: Performed By: #### L 501.2300, L100.0100, L501.9520, L500.4050 ####[facility] [address] [place], [address] MCV (RBC) [Entitic vol] 81.8 fL Normal 81-99 [facility] Comment on above: Performed By: #### L 501.2300, L100.0100, L501.9520, L500.4050 ####[facility] [address] [place], [address] Monocytes/100 WBC (Bld) 9.8 % Normal 0-10 [facility] Comment on above: Performed By: #### L 501.2300, L100.0100, L501.9520, L500.4050 ####[facility] [address] [place], [address] Neutrophils/100 WBC (Bld) 69.3 % Normal 47-70 [facility] Comment on above: Performed By: #### L 501.2300, L100.0100, L501.9520, L500.4050 ####[facility] [address] [place], [address] Nucleated RBC (Bld) [#/Vol] 0 10*3/uL Normal 0-5 [facility] Comment on above: Performed By: #### L 501.2300, L100.0100, L501.9520, L500.4050 ####[facility] [address] [place], [address] Platelet mean volume (Bld) [Entitic vol] 8.4 fL Normal 6.2-12.0 [facility] Comment on above: Performed By: #### L 501.2300, L100.0100, L501.9520, L500.4050 ####[facility] [address] [place], [address] Platelets (Bld) [#/Vol] 288 10*3/uL Normal 150-450 [facility] Comment on above: Performed By: #### L 501.2300, L100.0100, L501.9520, L500.4050 ####[facility] [address] [place], [address] RBC (Bld) [#/Vol] 4.07 10*6/uL Low 4.2-5.4 [facility] Comment on above: Performed By: #### L 501.2300, L100.0100, L501.9520, L500.4050 ####[facility] [address] [place], [address] RDW SD 54.9 fl High 35.1-43.9 [facility] Comment on above: Performed By: #### L 501.2300, L100.0100, L501.9520, L500.4050 ####[facility] [address] [place], [address] WBC (Bld) [#/Vol] 6.9 10*3/uL Normal 4.4-11.0 [facility] Comment on above: Performed By: #### L 501.2300, L100.0100, L501.9520, L500.4050 ####[facility] [address] [place], [address] Carbon dioxide, total [Moles /volume] in Central venous bloodOrdered By: Shannan Waldrop on 01-25-2025 CO2 [Moles/Vol] 21.9 mmol/L 21.0-32.0 [facility] Chloride assayOrdered By: Adriana Waldrop on 01-25-2025 Chloride [Moles/Vol] 102 mmol/L 98-108 [facility] Comprehensive Metabolic Prof ilon 01-25-2025 Albumin [Mass/Vol] 4.2 g/dL Normal 3.4-4.8 [facility] Comment on above: Performed By: #### L 501.2300, L100.0100, L501.9520, L500.4050 ####[facility] [address] [place], [address] Albumin/Globulin [Mass ratio] 1.4 {ratio} Normal 0.9-2.4 [facility] Comment on above: Performed By: #### L 501.2300, L100.0100, L501.9520, L500.4050 ####[facility] [address] [place], [address] ALK PHOS 82 U/L Normal 35-104 [facility] Comment on above: Performed By: #### L 501.2300, L100.0100, L501.9520, L500.4050 ####[facility] [address] [place], [address] ALT [Catalytic activity/Vol] 10 U/L Normal <=34 [facility] Comment on above: Performed By: #### L 501.2300, L100.0100, L501.9520, L500.4050 ####[facility] [address] [place], [address] AST [Catalytic activity/Vol] 17 U/L Normal <=31 [facility] Comment on above: Performed By: #### L 501.2300, L100.0100, L501.9520, L500.4050 ####[facility] [address] [place], [address] Bilirubin [Mass/Vol] 0.29 mg/dL Normal 0.00-1.30 [facility] Comment on above: Performed By: #### L 501.2300, L100.0100, L501.9520, L500.4050 ####[facility] [address] [place], [address] BUN/CRE 11.9 RATIO Normal 10-20 [facility] Comment on above: Performed By: #### L 501.2300, L100.0100, L501.9520, L500.4050 ####[facility] [address] [place], [address] Calcium [Mass/Vol] 9.5 mg/dL Normal 7.6-11.0 [facility] Comment on above: Performed By: #### L 501.2300, L100.0100, L501.9520, L500.4050 ####[facility] [address] [place], [address] Chloride [Moles/Vol] 102 mmol/L Normal 98-108 [facility] Comment on above: Performed By: #### L 501.2300, L100.0100, L501.9520, L500.4050 ####[facility] [address] [place], [address] CO2 [Moles/Vol] 21.9 mmol/L Normal 21.0-32.0 [facility] Comment on above: Performed By: #### L 501.2300, L100.0100, L501.9520, L500.4050 ####[facility] [address] [place], [address] Creatinine [Mass/Vol] 0.81 mg/dL Normal 0.70-1.20 [facility] Comment on above: Performed By: #### L 501.2300, L100.0100, L501.9520, L500.4050 ####[facility] [address] [place], [address] ECRCL 64.15 ml/min Normal 50-250 [facility] Comment on above: Performed By: #### L 501.2300, L100.0100, L501.9520, L500.4050 ####[facility] [address] [place], [address] GAP 15 Normal 5-15 [facility] Comment on above: Performed By: #### L 501.2300, L100.0100, L501.9520, L500.4050 ####[facility] [address] [place], [address] GFR/1.73 sq M.predicted among non-blacks MDRD (S/P/Bld) [Vol rate/Area] 79 mL/min/{1.73_m2} Normal >60 [facility] Comment on above: Result Comment: mL/m in/1.73m2 CKD-EPI Creatinine Equation (2020) Performed By: #### L 501.2300, L100.0100, L501.9520, L500.4050 ####[facility] [address] [place], [address] Globulin (S) [Mass/Vol] 2.9 g/dL Normal 2.2-4.2 [facility] Comment on above: Performed By: #### L 501.2300, L100.0100, L501.9520, L500.4050 ####[facility] [address], [address] Glucose [Mass/Vol] 146 mg/dL High 70-99 [facility] Comment on above: Performed By: #### L 501.2300, L100.0100, L501.9520, L500.4050 ####[facility] [address] [place], [address] Potassium [Moles/Vol] 4.2 mmol/L Normal 3.3-5.1 [facility] Comment on above: Performed By: #### L 501.2300, L100.0100, L501.9520, L500.4050 ####[facility] [address], [address] Sodium [Moles/Vol] 138 mmol/L Normal 133-145 [facility] Comment on above: Performed By: #### L 501.2300, L100.0100, L501.9520, L500.4050 ####[facility] [address], [address] T PROT 7.1 g/dL Normal 5.9-8.4 [facility] Comment on above: Performed By: #### L 501.2300, L100.0100, L501.9520, L500.4050 ####[facility] [address] [place], [address] Urea nitrogen [Mass/Vol] 10 mg/dL Normal 4-19 [facility] Comment on above: Performed By: #### L 501.2300, L100.0100, L501.9520, L500.4050 ####[facility] [address] [place], [address] Eosinophil percentageOrdered By: Shannan Waldrop on 01-25-2025 Eosinophils/100 WBC (Bld) 1.5 % 0-5 [facility] Erythrocyte distribution wid th ratioOrdered By: Shannan Waldrop on 01-25-2025 Erythrocyte distribution width (RBC) [Ratio] 18.6 % High 11.6-14.6 [facility] Erythrocyte distribution wid th standard deviationOrdered By: Shannan Waldrop on 01-25-2025 Erythrocyte distribution width (RBC) [Ratio] 54.9 fl High 35.1-43.9 [facility] Glomerular filtration rate ( GFR) estimation/1.73 sq m using serum, plasma, or whole bOrdered By: Shannan Waldrop on 01-25-2025 GFR/1.73 sq M.predicted among non-blacks MDRD (S/P/Bld) [Vol rate/Area] 79 mL/min/{1.73_m2} >60 [facility] Comment on above: mL/min/1.73m2 CKD-EP I Creatinine Equation (2020) Hematocrit Auto (Bld) [Volum e fraction]Ordered By: Shannan Waldrop on 01-25-2025 Hematocrit (Bld) [Volume fraction] 33.3 % Low 37-47 [facility] Hemoglobin measurementOrdere d By: Shannan Waldrop on 01-25-2025 Hemoglobin (Bld) [Mass/Vol] 10.3 g/dL Low 12.0-15.0 [facility] Immature granulocytes/100 WB C Auto (Bld)Ordered By: Shannan Waldrop on 01-25-2025 Immature granulocytes/100 WBC (Bld) 0.600 % 0.0-0.9 [facility] Comment on above: IG% - Immature Granu locytes (promyelocytes, myelocytes and metamyelocytes) > 1% indicates that a LEFT SHIFT is Present. Laboratory - Chemistry and C hemistry - challengeOrdered By: Shannan Waldrop on 01-25-2025 AST [Catalytic activity/Vol] 17 U/L <32 [facility] MCV (mean corpuscular volume ) determinationOrdered By: Shannan Waldrop on 01-25-2025 MCV (RBC) [Entitic vol] 81.8 fL 81-99 [facility] Magnesiumon 01-25-2025 Magnesium [Mass/Vol] 1.4 mg/dL Low 1.5-2.2 [facility] Comment on above: Performed By: #### L 501.5200 ####[facility] [address] [place], [address] Magnesium measurement (mass/ volume)Ordered By: Shannan Waldrop on 01-25-2025 Magnesium (Unsp spec) [Mass/Vol] 1.4 mg/dL Low 1.5-2.2 [facility] Mean corpuscular hemoglobin (MCH) determinationOrdered By: Shannan Waldrop on 01-25-2025 MCH (RBC) [Entitic mass] 25.3 pg Low 27.0-32.0 [facility] Mean corpuscular hemoglobin concentration (MCHC) determinationOrdered By: Shannan Waldrop on 01-25-2025 MCHC (RBC) [Mass/Vol] 30.9 g/dL Low 32-36 [facility] Mean platelet volume determi nationOrdered By: Shannan Waldrop on 01-25-2025 Platelet mean volume (Bld) [Entitic vol] 8.4 fL 6.2-12.0 [facility] Monocyte percentageOrdered B y: Shannan Waldrop on 01-25-2025 Monocytes/100 WBC (Bld) 9.8 % 0-10 [facility] Neutrophil percentageOrdered By: [facility] Benjie on 01-25-2025 Neutrophils/100 WBC (Bld) 69.3 % 47-70 [facility] Nucleated red blood cell per centageOrdered By: [facility] Wal[facility] on 01-25-2025 Nucleated RBC/100 WBC (Bld) [Ratio] 0 % 0-5 [facility] Oncology Visit Reporton 01-16 Oncology Visit Report Normal [facility] Phosphoruson 01-25-2025 Phosphate [Mass/Vol] 4.2 mg/dL Normal 2.7-4.5 [facility] Comment on above: Performed By: #### L 501.2300, L100.0100, L501.9520, L500.4050 ####[facility] [address] [place], [address] Platelet countOrdered By: [place] Waldrop on 01-25-2025 Platelets (Bld) [#/Vol] 288 10*3/uL 150-450 [facility] Potassium measurement (mass/ volume)Ordered By: Shannan Waldrop on 01-25-2025 Potassium (Unsp spec) [Mass/Vol] 4.2 mmol/L 3.3-5.1 [facility] RBC Auto (Bld) [#/Vol]Ordere d By: Shannan Waldrop on 01-25-2025 RBC (Bld) [#/Vol] 4.07 10*6/uL Low 4.2-5.4 [facility] Serum creatinine measurement (mass/volume)Ordered By: Shannan Waldrop on 01-25-2025 Creatinine [Mass/Vol] 0.81 mg/dL 0.70-1.20 [facility] Serum globulin measurementOr dered By: Shannan Waldrop on 01-25-2025 Globulin (S) [Mass/Vol] 2.9 g/dL 2.2-4.2 [facility] Serum glucose measurement (m ass/volume)Ordered By: Shannan Waldrop on 01-25-2025 Glucose [Mass/Vol] 146 mg/dL High 70-99 [facility] Serum or plasma alanine amezquita otransferase (ALT) measurementOrdered By: Shannan Waldrop on 01-25-2025 ALT [Catalytic activity/Vol] 10 U/L <35 [facility] Serum or plasma albumin joaquin urement (mass/volume)Ordered By: Shannan Waldrop on 01-25-2025 Albumin [Mass/Vol] 4.2 g/dL 3.4-4.8 [facility] Serum or plasma albumin/glob ulin mass ratioOrdered By: Shannan Waldrop on 01-25-2025 Albumin/Globulin [Mass ratio] 1.4 {ratio} 0.9-2.4 [facility] Serum or plasma alkaline gumaro sphatase measurementOrdered By: Shannan Waldrop on 01-25-2025 ALP [Catalytic activity/Vol] 82 U/L 35-104 [facility] Serum or plasma calcium joaquin urement (mass/volume)Ordered By: Shannan Waldrop on 01-25-2025 Calcium [Mass/Vol] 9.5 mg/dL 7.6-11.0 [facility] Serum or plasma urea nitroge n measurement (mass/volume)Ordered By: Shannan Waldrop on 01-25-2025 Urea nitrogen [Mass/Vol] 10 mg/dL 4-19 [facility] Sodium levelOrdered By: Sprign Waldrop on 01-25-2025 Sodium [Moles/Vol] 138 mmol/L 133-145 [facility] TSH DL <= 0.005 mIU/L QnOrde red By: Shannan Waldrop on 01-25-2025 TSH Qn 53.600 uIU/mL High 0.300-4.200 [facility] Thyroid Stim Hormone (TSH)on 01-25-2025 TSH 53.600 uIU/mL High 0.300-4.200 [facility] Comment on above: Performed By: #### L 501.2300, L100.0100, L501.9520, L500.4050 ####[facility] [address] [place], [address] Total proteinOrdered By: Howard Waldrop on 01-25-2025 Protein [Mass/Vol] 7.1 g/dL 5.9-8.4 [facility] White blood cell (WBC) count Ordered By: Shannan Waldrop on 01-25-2025 WBC (Bld) [#/Vol] 6.9 10*3/uL 4.4-11.0 [facility] Absolute lymphocyte countOrd ered By: Sharif Christianson on 01-20-2025 Lymphocytes Auto (Unsp spec) [#/Vol] 1.00 10*3/uL 0.83-4.51 [facility] Absolute neutrophil countOrd ered By: Sharif Christianson on 01-20-2025 Neutrophils (Bld) [#/Vol] 4.7 10*3/uL 2.0-7.7 [facility] Anion gap in Serum or Plasma Ordered By: Sharif Christianson on 01-20-2025 Anion gap [Moles/Vol] 14 mmol/L 5- [facility] Automated lymphocyte count a s percentage of total leukocytesOrdered By: Sharif Christianson on 01-20-2025 Lymphocytes/100 WBC Auto (Unsp spec) 15.0 % Low 19- [facility] BUN/creatinine ratioOrdered By: Sharif Christianson on 01-20-2025 Urea nitrogen/Creatinine [Mass ratio] 13.6 mg/mg 10- [facility] Basophil percentageOrdered B y: Sharif Christianson on 01-20-2025 Basophils/100 WBC (Bld) 0.6 % 0-1 [facility] Bilirubin, totalOrdered By: Sharif Christianson on 01-20-2025 Bilirubin [Mass/Vol] 0.32 mg/dL 0.00-1.30 [facility] CBC W/Diff, Automatedon Absolute Lymph 1.00 X10 3/uL Normal 0.83-4.51 [facility] Comment on above: Order Comment: Order Date: 01/20/25Order Info: [id number] - CBCD Performed By: #### L 500.4050, L501.9985, L100.0100, L506.0400, L500.4100 ####[facility] [address] [place], [place], [phone] Absolute Neut 4.7 X10 3/uL Normal 2.0-7.7 [facility] Comment on above: Order Comment: Order Date: 01/20/25Order Info: [id number] - CBCD Performed By: #### L 500.4050, L501.9985, L100.0100, L506.0400, L500.4100 ####[facility] [address] [place], [place], [id number]) Basophils/100 WBC (Bld) 0.6 % Normal 0-1 [facility] Comment on above: Order Comment: Order Date: 01/20/25Order Info: [id number] - CBCD Performed By: #### L 500.4050, L501.9985, L100.0100, L506.0400, L500.4100 ####[facility] [address] [place], [address] Eosinophils/100 WBC (Bld) 1.3 % Normal 0-5 [facility] Comment on above: Order Comment: Order Date: 01/20/25Order Info: [id number] - CBCD Performed By: #### L 500.4050, L501.9985, L100.0100, L506.0400, L500.4100 ####[facility] [address] [place], [address] Erythrocyte distribution width (RBC) [Ratio] 18.6 % High 11.6-14.6 [facility] Comment on above: Order Comment: Order Date: 01/20/25Order Info: [id number] - CBCD Performed By: #### L 500.4050, L501.9985, L100.0100, L506.0400, L500.4100 ####[facility] [address] [place], [address] Hematocrit (Bld) [Volume fraction] 35.1 % Low 37-47 [facility] Comment on above: Order Comment: Order Date: 01/20/25Order Info: [id number] - CBCD Performed By: #### L 500.4050, L501.9985, L100.0100, L506.0400, L500.4100 ####[facility] [address] [place], [address] Hemoglobin (Bld) [Mass/Vol] 10.9 g/dL Low 12.0-15.0 [facility] Comment on above: Order Comment: Order Date: 01/20/25Order Info: [id number] - CBCD Performed By: #### L 500.4050, L501.9985, L100.0100, L506.0400, L500.4100 ####[facility] [address] [place], [address] IG% 0.400 Normal 0.0-0.9 [facility] Comment on above: Order Comment: Order Date: 01/20/25Order Info: [id number] - CBCD Result Comment: IG% - Immature Granulocytes (promyelocytes, myelocytes andmetamyelocytes) > 1% indicates that a LEFT SHIFT is Present. Performed By: #### L 500.4050, L501.9985, L100.0100, L506.0400, L500.4100 ####[facility] [address] [place], [address] Lymphocytes/100 WBC (Bld) 15.0 % Low 19-41 [facility] Comment on above: Order Comment: Order Date: 01/20/25Order Info: [id number] - CBCD Performed By: #### L 500.4050, L501.9985, L100.0100, L506.0400, L500.4100 ####[facility] [address] [place], [address] MCH (RBC) [Entitic mass] 25.7 pg Low 27.0-32.0 [facility] Comment on above: Order Comment: Order Date: 01/20/25Order Info: [id number] - CBCD Performed By: #### L 500.4050, L501.9985, L100.0100, L506.0400, L500.4100 ####[facility] [address] [place], [address] MCHC (RBC) [Mass/Vol] 31.1 g/dL Low 32-36 [facility] Comment on above: Order Comment: Order Date: 01/20/25Order Info: [id number] - CBCD Performed By: #### L 500.4050, L501.9985, L100.0100, L506.0400, L500.4100 ####[facility] [address] [place], [address] MCV (RBC) [Entitic vol] 82.8 fL Normal 81-99 [facility] Comment on above: Order Comment: Order Date: 01/20/25Order Info: [id number] - CBCD Performed By: #### L 500.4050, L501.9985, L100.0100, L506.0400, L500.4100 ####[facility] [address] [place], [address] Monocytes/100 WBC (Bld) 11.8 % High 0-10 [facility] Comment on above: Order Comment: Order Date: 01/20/25Order Info: [id number]- - CBCD Performed By: #### L 500.4050, L501.9985, L100.0100, L506.0400, L500.4100 ####[facility] [address] [place], [address] Neutrophils/100 WBC (Bld) 70.9 % High 47-70 [facility] Comment on above: Order Comment: Order Date: 01/20/25Order Info: [id number]- - CBCD Performed By: #### L 500.4050, L501.9985, L100.0100, L506.0400, L500.4100 ####[facility] [address] [place], [address] Nucleated RBC (Bld) [#/Vol] 0 10*3/uL Normal 0-5 [facility] Comment on above: Order Comment: Order Date: 01/20/25Order Info: [id number] - CBCD Performed By: #### L 500.4050, L501.9985, L100.0100, L506.0400, L500.4100 ####[facility] [address] [place], [address] Platelet mean volume (Bld) [Entitic vol] 9.0 fL Normal 6.2-12.0 [facility] Comment on above: Order Comment: Order Date: 01/20/25Order Info: [id number] - CBCD Performed By: #### L 500.4050, L501.9985, L100.0100, L506.0400, L500.4100 ####[facility] [address] [place], [address] Platelets (Bld) [#/Vol] 334 10*3/uL Normal 150-450 [facility] Comment on above: Order Comment: Order Date: 01/20/25Order Info: [id number] - CBCD Performed By: #### L 500.4050, L501.9985, L100.0100, L506.0400, L500.4100 ####[facility] [address] [place], [address] RBC (Bld) [#/Vol] 4.24 10*6/uL Normal 4.2-5.4 [facility] Comment on above: Order Comment: Order Date: 01/20/25Order Info: [id number] - CBCD Performed By: #### L 500.4050, L501.9985, L100.0100, L506.0400, L500.4100 ####[facility] [address] [place], [address] RDW SD 54.9 fl High 35.1-43.9 [facility] Comment on above: Order Comment: Order Date: 01/20/25Order Info: [id number] - CBCD Performed By: #### L 500.4050, L501.9985, L100.0100, L506.0400, L500.4100 ####[facility] [address] [place], [address] WBC (Bld) [#/Vol] 6.7 10*3/uL Normal 4.4-11.0 [facility] Comment on above: Order Comment: Order Date: 01/20/25Order Info: [id number] - CBCD Performed By: #### L 500.4050, L501.9985, L100.0100, L506.0400, L500.4100 ####[facility] [address] [place], [place], [address] Calculated very low density lipoprotein (VLDL) cholesterol measurementOrdered By: Sharif Christianson on 01-20-2025 Calculated very low density lipoprotein (VLDL) cholesterol measurement 27 mg/dL 5-40 [facility] Carbon dioxide, total [Moles /volume] in Central venous bloodOrdered By: Sharif Christianson on 01-20-2025 CO2 [Moles/Vol] 22.5 mmol/L 21.0-32.0 [facility] Chloride assayOrdered By: Yessenia Christianson on 01-20-2025 Chloride [Moles/Vol] 101 mmol/L 98-108 [facility] Comprehensive Metabolic Prof ilon 01-20-2025 Albumin [Mass/Vol] 4.1 g/dL Normal 3.4-4.8 [facility] Comment on above: Order Comment: Order Date: 01/20/25Order Info: [id number] - CMPOrder Info: [id number] - LIPIDOrder Info: [id number] - T4F Performed By: #### L 500.4050, L501.9985, L100.0100, L506.0400, L500.4100 ####[facility] [address] [place], [address] Albumin/Globulin [Mass ratio] 1.3 {ratio} Normal 0.9-2.4 [facility] Comment on above: Order Comment: Order Date: 01/20/25Order Info: [id number] - CMPOrder Info: [id number] - LIPIDOrder Info: [id number] - T4F Performed By: #### L 500.4050, L501.9985, L100.0100, L506.0400, L500.4100 ####[facility] [address] [place], [address] ALK PHOS 82 U/L Normal 35-104 [facility] Comment on above: Order Comment: Order Date: 01/20/25Order Info: [id number] - CMPOrder Info: [id number] - LIPIDOrder Info: [id number] - T4F Performed By: #### L 500.4050, L501.9985, L100.0100, L506.0400, L500.4100 ####[facility] [address] [place], [address] ALT [Catalytic activity/Vol] 9 U/L Normal <=34 [facility] Comment on above: Order Comment: Order Date: 01/20/25Order Info: [id number]- - CMPOrder Info: [id number] - LIPIDOrder Info: [id number] - T4F Performed By: #### L 500.4050, L501.9985, L100.0100, L506.0400, L500.4100 ####[facility] [address] [place], [place], [id number] AST [Catalytic activity/Vol] 16 U/L Normal <=31 [facility] Comment on above: Order Comment: Order Date: 01/20/25Order Info: [id number] - CMPOrder Info: [id number] - LIPIDOrder Info: [id number] - T4F Performed By: #### L 500.4050, L501.9985, L100.0100, L506.0400, L500.4100 ####[facility] [address] [place], [address] Bilirubin [Mass/Vol] 0.32 mg/dL Normal 0.00-1.30 [facility] Comment on above: Order Comment: Order Date: 01/20/25Order Info: [id number] - CMPOrder Info: [id number] - LIPIDOrder Info: [id number] - T4F Performed By: #### L 500.4050, L501.9985, L100.0100, L506.0400, L500.4100 ####[facility] [address] [place], [address] BUN/CRE 13.6 RATIO Normal 10-20 [facility] Comment on above: Order Comment: Order Date: 01/20/25Order Info: [id number] - CMPOrder Info: [id number] - LIPIDOrder Info: 7 - T4F Performed By: #### L 500.4050, L501.9985, L100.0100, L506.0400, L500.4100 ####[facility] [address] [place], [address] Calcium [Mass/Vol] 9.4 mg/dL Normal 7.6-11.0 [facility] Comment on above: Order Comment: Order Date: 01/20/25Order Info: [id number] - CMPOrder Info: [id number] - LIPIDOrder Info: 7 - T4F Performed By: #### L 500.4050, L501.9985, L100.0100, L506.0400, L500.4100 ####[facility] [address] [place], [address] Chloride [Moles/Vol] 101 mmol/L Normal 98-108 [facility] Comment on above: Order Comment: Order Date: 01/20/25Order Info: [id number] - CMPOrder Info: [id number] - LIPIDOrder Info: 7 - T4F Performed By: #### L 500.4050, L501.9985, L100.0100, L506.0400, L500.4100 ####[facility] [address] [place], [address] CO2 [Moles/Vol] 22.5 mmol/L Normal 21.0-32.0 [facility] Comment on above: Order Comment: Order Date: 01/20/25Order Info: [id number] - CMPOrder Info: [id number] - LIPIDOrder Info: [id number] - T4F Performed By: #### L 500.4050, L501.9985, L100.0100, L506.0400, L500.4100 ####[facility] [address] [place], [address] Creatinine [Mass/Vol] 0.80 mg/dL Normal 0.70-1.20 [facility] Comment on above: Order Comment: Order Date: 01/20/25Order Info: [id number] - CMPOrder Info: [id number] - LIPIDOrder Info: [id number] - T4F Performed By: #### L 500.4050, L501.9985, L100.0100, L506.0400, L500.4100 ####[facility] [address] [place], [address] GAP 14 Normal 5-15 [facility] Comment on above: Order Comment: Order Date: 01/20/25Order Info: [id number] - CMPOrder Info: [id number] - LIPIDOrder Info: [id number] - T4F Performed By: #### L 500.4050, L501.9985, L100.0100, L506.0400, L500.4100 ####[facility] [address] [place], [address] GFR/1.73 sq M.predicted among non-blacks MDRD (S/P/Bld) [Vol rate/Area] 79 mL/min/{1.73_m2} Normal >60 [facility] Comment on above: Order Comment: Order Date: 01/20/25Order Info: [id number] - CMPOrder Info: [id number] - LIPIDOrder Info: [id number] - T4F Result Comment: mL/m in/1.73m2 CKD-EPI Creatinine Equation (2020) Performed By: #### L 500.4050, L501.9985, L100.0100, L506.0400, L500.4100 ####[facility] [address] [place], [address] Globulin (S) [Mass/Vol] 3.2 g/dL Normal 2.2-4.2 [facility] Comment on above: Order Comment: Order Date: 01/20/25Order Info: 07- - CMPOrder Info: [id number] - LIPIDOrder Info: [id number] - T4F Performed By: #### L 500.4050, L501.9985, L100.0100, L506.0400, L500.4100 ####[facility] [address] [place], [address] Glucose [Mass/Vol] 162 mg/dL High 70-99 [facility] Comment on above: Order Comment: Order Date: 01/20/25Order Info: [id number] - CMPOrder Info: [id number] - LIPIDOrder Info: [id number] - T4F Performed By: #### L 500.4050, L501.9985, L100.0100, L506.0400, L500.4100 ####[facility] [address] [place], [address] Potassium [Moles/Vol] 3.9 mmol/L Normal 3.3-5.1 [facility] Comment on above: Order Comment: Order Date: 01/20/25Order Info: [id number] - CMPOrder Info: [id number] - LIPIDOrder Info: [id number] - T4F Performed By: #### L 500.4050, L501.9985, L100.0100, L506.0400, L500.4100 ####[facility] [address] [place], [address] Sodium [Moles/Vol] 138 mmol/L Normal 133-145 [facility] Comment on above: Order Comment: Order Date: 01/20/25Order Info: [id number] - CMPOrder Info: [id number] - LIPIDOrder Info: [id number] - T4F Performed By: #### L 500.4050, L501.9985, L100.0100, L506.0400, L500.4100 ####[facility] [address] [place], [address] T PROT 7.3 g/dL Normal 5.9-8.4 [facility] Comment on above: Order Comment: Order Date: 01/20/25Order Info: [id number] - CMPOrder Info: [id number] - LIPIDOrder Info: [id number] - T4F Performed By: #### L 500.4050, L501.9985, L100.0100, L506.0400, L500.4100 ####[facility] [address] [place], [address] Urea nitrogen [Mass/Vol] 11 mg/dL Normal 4-19 [facility] Comment on above: Order Comment: Order Date: 01/20/25Order Info: [id number] - CMPOrder Info: [id number] - LIPIDOrder Info: [id number] - T4F Performed By: #### L 500.4050, L501.9985, L100.0100, L506.0400, L500.4100 ####[facility] [address] [place], [place], [id number] Eosinophil percentageOrdered By: Sharif Christianson on 01-20-2025 Eosinophils/100 WBC (Bld) 1.3 % 0-5 [facility] Erythrocyte distribution wid th ratioOrdered By: Sharif Christianson on 01-20-2025 Erythrocyte distribution width (RBC) [Ratio] 18.6 % High 11.6-14.6 [facility] Erythrocyte distribution wid th standard deviationOrdered By: Sharif Christianson on 01-20-2025 Erythrocyte distribution width (RBC) [Ratio] 54.9 fl High 35.1-43.9 [facility] Glomerular filtration rate ( GFR) estimation/1.73 sq m using serum, plasma, or whole bOrdered By: Sharif Christianson on 01-20-2025 GFR/1.73 sq M.predicted among non-blacks MDRD (S/P/Bld) [Vol rate/Area] 79 mL/min/{1.73_m2} >60 [facility] Comment on above: mL/min/1.73m2 CKD-EP I Creatinine Equation (2020) Hematocrit Auto (Bld) [Volum e fraction]Ordered By: Sharif Christianson on 01-20-2025 Hematocrit (Bld) [Volume fraction] 35.1 % Low 37-47 [facility] Hemoglobin A1con 01-20-2025 HbA1c (Bld) [Mass fraction] 7.6 % High <=5.6 [facility] Comment on above: Order Comment: Order Date: 01/20/25Order Info: [id number] - A1C Result Comment: Norm al < 5.7 % Prediabetic 5.7 - 6.4 % Diabetic >or= 6.5 % Please note range changes. Performed By: #### L 500.4050, L501.9985, L100.0100, L506.0400, L500.4100 ####[facility] [address] [place], [address] Hemoglobin A1c percentageOrd ered By: Sharif Christianson on 01-20-2025 HbA1c (Bld) [Mass fraction] 7.6 % High <5.7 [facility] Comment on above: Normal < 5.7 % Predi abetic 5.7 - 6.4 % Diabetic >or= 6.5 % Please note range changes. Hemoglobin measurementOrdere d By: Sharif Christianson on 01-20-2025 Hemoglobin (Bld) [Mass/Vol] 10.9 g/dL Low 12.0-15.0 [facility] Immature granulocytes/100 WB C Auto (Bld)Ordered By: Sharif Christianson on 01-20-2025 Immature granulocytes/100 WBC (Bld) 0.400 % 0.0-0.9 [facility] Comment on above: IG% - Immature Granu locytes (promyelocytes, myelocytes and metamyelocytes) > 1% indicates that a LEFT SHIFT is Present. LDL calc ser/plasOrdered By: Sharif Christianson on 01-20-2025 Cholesterol in LDL [Mass/Vol] 48 mg/dL [facility] Comment on above: Hpojiqwkwv=711-512 m g/dL & Higher Hqee=820 mg/dL or greater Laboratory - Chemistry and C hemistry - challengeOrdered By: Sharif Christianson on 01-20-2025 AST [Catalytic activity/Vol] 16 U/L <32 [facility] Lipid Profileon 01-20-2025 CHOL:HDL 2.40 Normal [facility] Comment on above: Order Comment: Order Date: 01/20/25Order Info: [id number] - CMPOrder Info: [id number] - LIPIDOrder Info: [id number] - T4 Performed By: #### L 500.4050, L501.9985, L100.0100, L506.0400, L500.4100 ####[facility] [address] [place], [address] Cholesterol [Mass/Vol] 129 mg/dL Normal <=200 [facility] Comment on above: Order Comment: Order Date: 01/20/25Order Info: [id number] - CMPOrder Info: [id number] - LIPIDOrder Info: [id number] T4 Result Comment: Chol esterol level, Desirable <200 mg/dLBorderline high cholesterol 200-239 mg/dLHigh cholesterol >=240 mg/dLRecommendations of the NCEP Adult Treatment Panel for thefollowing risk-cutoff thresholds for the [place] Americanpulation. Performed By: #### L 500.4050, L501.9985, L100.0100, L506.0400, L500.4100 ####[facility] [address] [place], [address] Cholesterol in HDL [Mass/Vol] 54 mg/dL Normal [facility] Comment on above: Order Comment: Order Date: 01/20/25Order Info: [id number] - CMPOrder Info: [id number] - LIPIDOrder Info: [id number] T4 Result Comment: Ledy onal Cholesterol Education Program (NCEP) guidelines:<40 mg/dL: Low HDL-cholesterol (major risk factor for CHD)>= 60 mg/dL: High HDL-cholesterol (negative risk factor forCHD)HDL-cholesterol is affected by a number of factors, e.g.smoking, exercise, hormones, sex and age. Performed By: #### L 500.4050, L501.9985, L100.0100, L506.0400, L500.4100 ####[facility] [address] [place], [address] Cholesterol in LDL [Mass/Vol] 48 mg/dL Normal [facility] Comment on above: Order Comment: Order Date: 01/20/25Order Info: [id number] - CMPOrder Info: [id number] - LIPIDOrder Info: [id number] - T4F Result Comment: Bord ncgasi=240-648 mg/dL Higher Vwpc=353 mg/dL or greater Performed By: #### L 500.4050, L501.9985, L100.0100, L506.0400, L500.4100 ####[facility] [address] [place], [address] Cholesterol in VLDL [Mass/Vol] 27 mg/dL Normal 5-40 [facility] Comment on above: Order Comment: Order Date: 01/20/25Order Info: [id number] - CMPOrder Info: [id number] - LIPIDOrder Info: [id number] - T4F Performed By: #### L 500.4050, L501.9985, L100.0100, L506.0400, L500.4100 ####[facility] [address] [place], [address] Triglyceride [Mass/Vol] 137 mg/dL Normal [facility] Comment on above: Order Comment: Order Date: 01/20/25Order Info: [id number] - CMPOrder Info: [id number] - LIPIDOrder Info: [id number] - T4F Result Comment: The drugs N-Acetylcysteine and Metamizole may falselydepress this assay.Normal range: <150 mg/dLBorderline High: 150-199 mg/dLHigh: 200-499 mg/dLVery High: >500 mg/dL Performed By: #### L 500.4050, L501.9985, L100.0100, L506.0400, L500.4100 ####[facility] [address] [place], [address] MCV (mean corpuscular volume ) determinationOrdered By: Sharif Christianson on 01-20-2025 MCV (RBC) [Entitic vol] 82.8 fL 81-99 [facility] Mean corpuscular hemoglobin (MCH) determinationOrdered By: Sharif Christianson on 01-20-2025 MCH (RBC) [Entitic mass] 25.7 pg Low 27.0-32.0 [facility] Mean corpuscular hemoglobin concentration (MCHC) determinationOrdered By: Sharif Christianson on 01-20-2025 MCHC (RBC) [Mass/Vol] 31.1 g/dL Low 32-36 [facility] Mean platelet volume determi nationOrdered By: Sharif Christianson on 01-20-2025 Platelet mean volume (Bld) [Entitic vol] 9.0 fL 6.2-12.0 [facility] Monocyte percentageOrdered B y: Sharif Christianson on 01-20-2025 Monocytes/100 WBC (Bld) 11.8 % High 0-10 [facility] Neutrophil percentageOrdered By: Sharif Christianson on 01-20-2025 Neutrophils/100 WBC (Bld) 70.9 % High 47-70 [facility] No Panel InformationOrdered By: Sharif Christianson on 01-20-2025 16 U/L <32 [facility] Nucleated red blood cell per centageOrdered By: Shraif Christianson on 01-20-2025 Nucleated RBC/100 WBC (Bld) [Ratio] 0 % 0-5 [facility] Platelet countOrdered By: Yessenia Christianson on 01-20-2025 Platelets (Bld) [#/Vol] 334 10*3/uL 150-450 [facility] Potassium measurement (mass/ volume)Ordered By: Sharif Christianson on 01-20-2025 Potassium (Unsp spec) [Mass/Vol] 3.9 mmol/L 3.3-5.1 [facility] RBC Auto (Bld) [#/Vol]Ordere d By: Sharif Christianson on 01-20-2025 RBC (Bld) [#/Vol] 4.24 10*6/uL 4.2-5.4 [facility] Screening total cholesterol/ high density lipoprotein (HDL) cholesterol ratioOrdered By: Sharif Christianson on 01-20-2025 Cholesterol.total/Cholest irasema in HDL [Mass ratio] 2.40 {ratio} [facility] Serum creatinine measurement (mass/volume)Ordered By: Sharif Christianson on 01-20-2025 Creatinine [Mass/Vol] 0.80 mg/dL 0.70-1.20 [facility] Serum globulin measurementOr dered By: Sharif Christianson on 01-20-2025 Globulin (S) [Mass/Vol] 3.2 g/dL 2.2-4.2 [facility] Serum glucose measurement (m ass/volume)Ordered By: Sharif Christianson on 01-20-2025 Glucose [Mass/Vol] 162 mg/dL High 70-99 [facility] Serum or plasma alanine amezquita otransferase (ALT) measurementOrdered By: Sharif Christianson on 01-20-2025 ALT [Catalytic activity/Vol] 9 U/L <35 [facility] Serum or plasma albumin joaquin urement (mass/volume)Ordered By: Sharif Christianson on 01-20-2025 Albumin [Mass/Vol] 4.1 g/dL 3.4-4.8 [facility] Serum or plasma albumin/glob ulin mass ratioOrdered By: Sharif Christianson on 01-20-2025 Albumin/Globulin [Mass ratio] 1.3 {ratio} 0.9-2.4 [facility] Serum or plasma alkaline gumaro sphatase measurementOrdered By: Sharif Christianson on 01-20-2025 ALP [Catalytic activity/Vol] 82 U/L 35-104 [facility] Serum or plasma calcium joaquin urement (mass/volume)Ordered By: Sharif Christianson on 01-20-2025 Calcium [Mass/Vol] 9.4 mg/dL 7.6-11.0 [facility] Serum or plasma cholesterol in HDL measurement (mass/volume)Ordered By: Sharif Christianson on 01-20-2025 Cholesterol in HDL [Mass/Vol] 54 mg/dL >40 [facility] Comment on above: National Cholesterol Education Program (NCEP) guidelines:<40 mg/dL: Low HDL-cholesterol (major risk factor for CHD)>= 60 mg/dL: High HDL-cholesterol (negative risk factor for CHD)HDL-cholesterol is affected by a number of factors, e.g. smoking, exercise, hormones, sex and age. Serum or plasma cholesterol measurement (mass/volume)Ordered By: Sharif Christianson on 01-20-2025 Cholesterol [Mass/Vol] 129 mg/dL <201 [facility] Comment on above: Cholesterol level, D esirable <200 mg/dLBorderline high cholesterol 200-239 mg/dLHigh cholesterol >=240 mg/dLRecommendations of the NCEP Adult Treatment Panel for the following risk-cutoff thresholds for the [place] population. Serum or plasma urea nitroge n measurement (mass/volume)Ordered By: Sharif Christianson on 01-20-2025 Urea nitrogen [Mass/Vol] 11 mg/dL 4-19 [facility] Sodium levelOrdered By: Sharif Christianson on 01-20-2025 Sodium [Moles/Vol] 138 mmol/L 133-145 [facility] T4 Free Directon 01-20-2025 T4 FREE DIRECT 0.40 ng/dL Low 0.76-1.46 [facility] Comment on above: Order Comment: Order Date: 01/20/25Order Info: [id number] - CMPOrder Info: [id number] - LIPIDOrder Info: [id number] - T4F Performed By: #### L 500.4050, L501.9985, L100.0100, L506.0400, L500.4100 ####[facility] [address] [place], [place], [address] T4 freeOrdered By: Sharif moreira on 01-20-2025 Free T4 [Mass/Vol] 0.40 ng/dL Low 0.76-1.46 [facility] Total proteinOrdered By: Link Christianson on 01-20-2025 Protein [Mass/Vol] 7.3 g/dL 5.9-8.4 [facility] Triglycerides measurementOrd ered By: Sharif Christianson on 01-20-2025 Triglyceride [Mass/Vol] 137 mg/dL <199 [facility] Comment on above: The drugs N-Acetylcy steine and Metamizole may falsely depress this assay. Normal range: <150 mg/dLBorderline High: 150-199 mg/dLHigh: 200-499 mg/dLVery High: >500 mg/dL White blood cell (WBC) count Ordered By: Sharif Christianson on 01-20-2025 WBC (Bld) [#/Vol] 6.7 10*3/uL 4.4-11.0 [facility] Absolute lymphocyte countOrd ered By: [facility] Benjie on 01-04-2025 Lymphocytes Auto (Unsp spec) [#/Vol] 1.07 10*3/uL 0.83-4.51 [facility] Absolute neutrophil countOrd ered By: [facility] 01-04-2025 Neutrophils (Bld) [#/Vol] 5.3 10*3/uL 2.0-7.7 [facility] Anion gap in Serum or Plasma Ordered By: [facility] on 01-04-2025 Anion gap [Moles/Vol] 14 mmol/L 12-30 [facility] Automated lymphocyte count a s percentage of total leukocytesOrdered By: [facility] Waldrop on 01-04-2025 Lymphocytes/100 WBC Auto (Unsp spec) 15.0 % Low 19- [facility] BUN/creatinine ratioOrdered By: [facility] on 01-04-2025 Urea nitrogen/Creatinine [Mass ratio] 13.9 mg/mg 06-06 [facility] Basophil percentageOrdered B y: [facility] Benjie on 01-04-2025 Basophils/100 WBC (Bld) 0.6 % 0-1 [facility] Bilirubin, totalOrdered By: [facility] on 01-04-2025 Bilirubin [Mass/Vol] 0.26 mg/dL 0.00-1.30 [facility] CBC W/Diff, Automatedon 12-17 Absolute Lymph 1.07 X10 3/uL Normal 0.83-4.51 [facility] Comment on above: Performed By: #### L 501.0920, L500.4050, L501.2300, L100.0100 ####[facility] [address] [place], [address] Absolute Neut 5.3 X10 3/uL Normal 2.0-7.7 [facility] Comment on above: Performed By: #### L 501.9520, L500.4050, L501.2300, L100.0100 ####[facility] [address] [place], [address] Basophils/100 WBC (Bld) 0.6 % Normal 0-1 [facility] Comment on above: Performed By: #### L 501.9520, L500.4050, L501.2300, L100.0100 ####[facility] [address] [place], [address] Eosinophils/100 WBC (Bld) 1.7 % Normal 0-5 [facility] Comment on above: Performed By: #### L 501.9520, L500.4050, L501.2300, L100.0100 ####[facility] [address] [place], [address] Erythrocyte distribution width (RBC) [Ratio] 17.7 % High 11.6-14.6 [facility] Comment on above: Performed By: #### L 501.9520, L500.4050, L501.2300, L100.0100 ####[facility] [address] [place], [address] Hematocrit (Bld) [Volume fraction] 32.1 % Low 37-47 [facility] Comment on above: Performed By: #### L 501.9520, L500.4050, L501.2300, L100.0100 ####[facility] [address] [place], [address] Hemoglobin (Bld) [Mass/Vol] 10.3 g/dL Low 12.0-15.0 [facility] Comment on above: Performed By: #### L 501.9520, L500.4050, L501.2300, L100.0100 ####[facility] [address] [place], [address] IG% 0.400 Normal 0.0-0.9 [facility] Comment on above: Result Comment: IG% - Immature Granulocytes (promyelocytes, myelocytes andmetamyelocytes) > 1% indicates that a LEFT SHIFT is Present. Performed By: #### L 501.9520, L500.4050, L501.2300, L100.0100 ####[facility] [address] [place], [address] Lymphocytes/100 WBC (Bld) 15.0 % Low 19-41 [facility] Comment on above: Performed By: #### L 501.9520, L500.4050, L501.2300, L100.0100 ####[facility] [address] [place], [address] MCH (RBC) [Entitic mass] 26.1 pg Low 27.0-32.0 [facility] Comment on above: Performed By: #### L 501.9520, L500.4050, L501.2300, L100.0100 ####[facility] [address] [place], [address] MCHC (RBC) [Mass/Vol] 32.1 g/dL Normal 32-36 [facility] Comment on above: Performed By: #### L 501.9520, L500.4050, L501.2300, L100.0100 ####[facility] [address] [place], [address] MCV (RBC) [Entitic vol] 81.3 fL Normal 81-99 [facility] Comment on above: Performed By: #### L 501.9520, L500.4050, L501.2300, L100.0100 ####[facility] [address] [place], [address] Monocytes/100 WBC (Bld) 8.4 % Normal 0-10 [facility] Comment on above: Performed By: #### L 501.9520, L500.4050, L501.2300, L100.0100 ####[facility] [address] [place], [address] Neutrophils/100 WBC (Bld) 73.9 % High 47-70 [facility] Comment on above: Performed By: #### L 501.9520, L500.4050, L501.2300, L100.0100 ####[facility] [address] [place], [address] Nucleated RBC (Bld) [#/Vol] 0 10*3/uL Normal 0-5 [facility] Comment on above: Performed By: #### L 501.9520, L500.4050, L501.2300, L100.0100 ####[facility] [address] [place], [address] Platelet mean volume (Bld) [Entitic vol] 8.6 fL Normal 6.2-12.0 [facility] Comment on above: Performed By: #### L 501.9520, L500.4050, L501.2300, L100.0100 ####[facility] [address] [place], [address] Platelets (Bld) [#/Vol] 292 10*3/uL Normal 150-450 [facility] Comment on above: Performed By: #### L 501.9520, L500.4050, L501.2300, L100.0100 ####[facility] [address] [place], [address] RBC (Bld) [#/Vol] 3.95 10*6/uL Low 4.2-5.4 [facility] Comment on above: Performed By: #### L 501.9520, L500.4050, L501.2300, L100.0100 ####[facility] [address] [place], [address] RDW SD 53.0 fl High 35.1-43.9 [facility] Comment on above: Performed By: #### L 501.9520, L500.4050, L501.2300, L100.0100 ####[facility] [address] [place], [address] WBC (Bld) [#/Vol] 7.2 10*3/uL Normal 4.4-11.0 [facility] Comment on above: Performed By: #### L 501.9520, L500.4050, L501.2300, L100.0100 ####[facility] [address] [place], [address] Carbon dioxide, total [Moles /volume] in Central venous bloodOrdered By: Shannan Waldrop on 01-04-2025 CO2 [Moles/Vol] 21.4 mmol/L 21.0-32.0 [facility] Chloride assayOrdered By: Adriana Waldrop on 01-04-2025 Chloride [Moles/Vol] 102 mmol/L 98-108 [facility] Comprehensive Metabolic Prof ilon 01-04-2025 Albumin [Mass/Vol] 3.8 g/dL Normal 3.4-4.8 [facility] Comment on above: Performed By: #### L 501.9520, L500.4050, L501.2300, L100.0100 ####[facility] [address] [place], [address] Albumin/Globulin [Mass ratio] 1.3 {ratio} Normal 0.9-2.4 [facility] Comment on above: Performed By: #### L 501.9520, L500.4050, L501.2300, L100.0100 ####[facility] [address] [place], [address] ALK PHOS 77 U/L Normal 35-104 [facility] Comment on above: Performed By: #### L 501.9520, L500.4050, L501.2300, L100.0100 ####[facility] [address] [place], [address] ALT [Catalytic activity/Vol] 8 U/L Normal <=34 [facility] Comment on above: Performed By: #### L 501.9520, L500.4050, L501.2300, L100.0100 ####[facility] [address] [place], [address] AST [Catalytic activity/Vol] 16 U/L Normal <=31 [facility] Comment on above: Performed By: #### L 501.9520, L500.4050, L501.2300, L100.0100 ####[facility] [address] [place], [address] Bilirubin [Mass/Vol] 0.26 mg/dL Normal 0.00-1.30 [facility] Comment on above: Performed By: #### L 501.9520, L500.4050, L501.2300, L100.0100 ####[facility] [address] [place], [address] BUN/CRE 13.9 RATIO Normal 10-20 [facility] Comment on above: Performed By: #### L 501.9520, L500.4050, L501.2300, L100.0100 ####[facility] [address] [place], [address] Calcium [Mass/Vol] 8.9 mg/dL Normal 7.6-11.0 [facility] Comment on above: Performed By: #### L 501.9520, L500.4050, L501.2300, L100.0100 ####[facility] [address] [place], [address] Chloride [Moles/Vol] 102 mmol/L Normal 98-108 [facility] Comment on above: Performed By: #### L 501.9520, L500.4050, L501.2300, L100.0100 ####[facility] [address] [place], [address] CO2 [Moles/Vol] 21.4 mmol/L Normal 21.0-32.0 [facility] Comment on above: Performed By: #### L 501.9520, L500.4050, L501.2300, L100.0100 ####[facility] [address] [place], [address] Creatinine [Mass/Vol] 0.82 mg/dL Normal 0.70-1.20 [facility] Comment on above: Performed By: #### L 501.9520, L500.4050, L501.2300, L100.0100 ####[facility] [address] [place], [address] ECRCL 62.82 ml/min Normal 50-250 [facility] Comment on above: Performed By: #### L 501.9520, L500.4050, L501.2300, L100.0100 ####[facility] [address] [place], [address] GAP 14 Normal 5-15 [facility] Comment on above: Performed By: #### L 501.9520, L500.4050, L501.2300, L100.0100 ####[facility] [address] [place], [address] GFR/1.73 sq M.predicted among non-blacks MDRD (S/P/Bld) [Vol rate/Area] 77 mL/min/{1.73_m2} Normal >60 [facility] Comment on above: Result Comment: mL/m in/1.73m2 CKD-EPI Creatinine Equation (2020) Performed By: #### L 501.9520, L500.4050, L501.2300, L100.0100 ####[facility] [address] [place], [address] Globulin (S) [Mass/Vol] 2.9 g/dL Normal 2.2-4.2 [facility] Comment on above: Performed By: #### L 501.9520, L500.4050, L501.2300, L100.0100 ####[facility] [address] [place], [address] Glucose [Mass/Vol] 221 mg/dL High 70-99 [facility] Comment on above: Performed By: #### L 501.9520, L500.4050, L501.2300, L100.0100 ####[facility] [address] [place], [address] Potassium [Moles/Vol] 3.9 mmol/L Normal 3.3-5.1 [facility] Comment on above: Performed By: #### L 501.9520, L500.4050, L501.2300, L100.0100 ####[facility] [address] [place], [address] Sodium [Moles/Vol] 138 mmol/L Normal 133-145 [facility] Comment on above: Performed By: #### L 501.9520, L500.4050, L501.2300, L100.0100 ####[facility] [address] [place], [address] T PROT 6.6 g/dL Normal 5.9-8.4 [facility] Comment on above: Performed By: #### L 501.9520, L500.4050, L501.2300, L100.0100 ####[facility] [address] [place], [address] Urea nitrogen [Mass/Vol] 11 mg/dL Normal 4-19 [facility] Comment on above: Performed By: #### L 501.9567, L500.4050, L501.2300, L100.0100 ####[facility] [address] [place], [place], [address] Eosinophil percentageOrdered By: [facility] Benjie on 01-04-2025 Eosinophils/100 WBC (Bld) 1.7 % 0-5 [facility] Erythrocyte distribution wid th ratioOrdered By: [facility] on 01-04-2025 Erythrocyte distribution width (RBC) [Ratio] 17.7 % High 11.6-14.6 [facility] Erythrocyte distribution wid th standard deviationOrdered By: [facility] on 01-04-2025 Erythrocyte distribution width (RBC) [Ratio] 53.0 fl High 35.1-43.9 [facility] [facility] Glomerular filtration rate ( GFR) estimation/1.73 sq m using serum, plasma, or whole bOrdered By: [facility] Benjie on 01-04-2025 GFR/1.73 sq M.predicted among non-blacks MDRD (S/P/Bld) [Vol rate/Area] 77 mL/min/{1.73_m2} >60 [facility] Comment on above: mL/min/1.73m2 CKD-EP I Creatinine Equation (2020) Hematocrit Auto (Bld) [Volum e fraction]Ordered By: [facility] Benjie on 01-04-2025 Hematocrit (Bld) [Volume fraction] 32.1 % Low 37-47 [facility] Hemoglobin measurementOrdere d By: [facility] on 01-04-2025 Hemoglobin (Bld) [Mass/Vol] 10.3 g/dL Low 12.0-15.0 [facility] Immature granulocytes/100 WB C Auto (Bld)Ordered By: [facility] on 01-04-2025 Immature granulocytes/100 WBC (Bld) 0.400 % 0.0-0.9 [facility] Comment on above: IG% - Immature Granu locytes (promyelocytes, myelocytes and metamyelocytes) > 1% indicates that a LEFT SHIFT is Present. Laboratory - Chemistry and C hemistry - challengeOrdered By: Shannan Waldrop on 01-04-2025 AST [Catalytic activity/Vol] 16 U/L <32 [facility] MCV (mean corpuscular volume ) determinationOrdered By: Shannan Waldrop on 01-04-2025 MCV (RBC) [Entitic vol] 81.3 fL 81-99 [facility] Mean corpuscular hemoglobin (MCH) determinationOrdered By: Shannan Waldrop on 01-04-2025 MCH (RBC) [Entitic mass] 26.1 pg Low 27.0-32.0 [facility] Mean corpuscular hemoglobin concentration (MCHC) determinationOrdered By: Shannan Waldrop on 01-04-2025 MCHC (RBC) [Mass/Vol] 32.1 g/dL 32-36 [facility] Mean platelet volume determi nationOrdered By: Shannan Waldrop on 01-04-2025 Platelet mean volume (Bld) [Entitic vol] 8.6 fL 6.2-12.0 [facility] Monocyte percentageOrdered B y: Shannan Waldrop on 01-04-2025 Monocytes/100 WBC (Bld) 8.4 % 0-10 [facility] Neutrophil percentageOrdered By: Shannan Waldrop on 01-04-2025 Neutrophils/100 WBC (Bld) 73.9 % High 47-70 [facility] Nucleated red blood cell per centageOrdered By: Shannan Waldrop on 01-04-2025 Nucleated RBC/100 WBC (Bld) [Ratio] 0 % 0-5 [facility] Oncology Visit Reporton 12-17 Oncology Visit Report Normal [facility] Phosphoruson 01-04-2025 Phosphate [Mass/Vol] 3.8 mg/dL Normal 2.7-4.5 [facility] Comment on above: Performed By: #### L 501.4720, L500.4050, L501.2300, L100.0100 ####[facility] [address] [place], [address] Platelet countOrdered By: Adriana Waldrop on 01-04-2025 Platelets (Bld) [#/Vol] 292 10*3/uL 150-450 [facility] Potassium measurement (mass/ volume)Ordered By: Shannan Waldrop on 01-04-2025 Potassium (Unsp spec) [Mass/Vol] 3.9 mmol/L 3.3-5.1 [facility] RBC Auto (Bld) [#/Vol]Ordere d By: Shannan Waldrop on 01-04-2025 RBC (Bld) [#/Vol] 3.95 10*6/uL Low 4.2-5.4 [facility] Serum creatinine measurement (mass/volume)Ordered By: Shannan Waldrop on 01-04-2025 Creatinine [Mass/Vol] 0.82 mg/dL 0.70-1.20 [facility] Serum globulin measurementOr dered By: Shannan Waldrop on 01-04-2025 Globulin (S) [Mass/Vol] 2.9 g/dL 2.2-4.2 [facility] Serum glucose measurement (m ass/volume)Ordered By: Shannan Waldrop on 01-04-2025 Glucose [Mass/Vol] 221 mg/dL High 70-99 [facility] Serum or plasma alanine amezquita otransferase (ALT) measurementOrdered By: Shannan Waldrop on 01-04-2025 ALT [Catalytic activity/Vol] 8 U/L <35 [facility] Serum or plasma albumin joaquin urement (mass/volume)Ordered By: Shannan Waldrop on 01-04-2025 Albumin [Mass/Vol] 3.8 g/dL 3.4-4.8 [facility] Serum or plasma albumin/glob ulin mass ratioOrdered By: Shannan Waldrop on 01-04-2025 Albumin/Globulin [Mass ratio] 1.3 {ratio} 0.9-2.4 [facility] Serum or plasma alkaline gumaro sphatase measurementOrdered By: Shannan Waldrop on 01-04-2025 ALP [Catalytic activity/Vol] 77 U/L 35-104 [facility] Serum or plasma calcium joaquin urement (mass/volume)Ordered By: Shannan Waldrop on 01-04-2025 Calcium [Mass/Vol] 8.9 mg/dL 7.6-11.0 [facility] Serum or plasma urea nitroge n measurement (mass/volume)Ordered By: Shannan Waldrop on 01-04-2025 Urea nitrogen [Mass/Vol] 11 mg/dL 4-19 [facility] Sodium levelOrdered By: [place] ja Benjie on 01-04-2025 Sodium [Moles/Vol] 138 mmol/L 133-145 [facility] T4 Free Directon 01-04-2025 T4 FREE DIRECT 0.30 ng/dL Low 0.76-1.46 [facility] Comment on above: Order Comment: ADD O N FROM EARLIER TODAY, THANKS Performed By: #### L 506.0400 ####[facility] [address] [place], [address] T4 freeOrdered By: Shannan julio on 01-04-2025 Free T4 [Mass/Vol] 0.30 ng/dL Low 0.76-1.46 [facility] TSH DL <= 0.005 mIU/L QnOrde red By: Shannan Waldrop on 01-04-2025 TSH Qn 33.000 uIU/mL High 0.300-4.200 [facility] Thyroid Stim Hormone (TSH)on 01-04-2025 TSH 33.000 uIU/mL High 0.300-4.200 [facility] Comment on above: Performed By: #### L 501.9520, L500.4050, L501.2300, L100.0100 ####[facility] [address] [place], [address] Total proteinOrdered By: Howard Waldrop on 01-04-2025 Protein [Mass/Vol] 6.6 g/dL 5.9-8.4 [facility] White blood cell (WBC) count Ordered By: Shannan Waldrop on 01-04-2025 WBC (Bld) [#/Vol] 7.2 10*3/uL 4.4-11.0 [facility] CBC W/Diff, Automatedon 04-2 Absolute Lymph 1.18 X10 3/uL Normal 0.83-4.51 [facility] Comment on above: Performed By: #### L 100.0100, L501.2300, L501.9520, L500.4050 ####[facility] [address] [place], [address] Absolute Neut 5.0 X10 3/uL Normal 2.0-7.7 [facility] Comment on above: Performed By: #### L 100.0100, L501.2300, L501.9520, L500.4050 ####[facility] [address] [place], [address] Basophils/100 WBC (Bld) 0.4 % Normal 0-1 [facility] Comment on above: Performed By: #### L 100.0100, L501.2300, L501.9520, L500.4050 ####[facility] [address] [place], [address] Eosinophils/100 WBC (Bld) 2.1 % Normal 0-5 [facility] Comment on above: Performed By: #### L 100.0100, L501.2300, L501.9520, L500.4050 ####[facility] [address] [place], [address] Erythrocyte distribution width (RBC) [Ratio] 17.6 % High 11.6-14.6 [facility] Comment on above: Performed By: #### L 100.0100, L501.2300, L501.9520, L500.4050 ####[facility] [address] [place], [address] Hematocrit (Bld) [Volume fraction] 32.3 % Low 37-47 [facility] Comment on above: Performed By: #### L 100.0100, L501.2300, L501.9520, L500.4050 ####[facility] [address] [place], [address] Hemoglobin (Bld) [Mass/Vol] 10.3 g/dL Low 12.0-15.0 [facility] Comment on above: Performed By: #### L 100.0100, L501.2300, L501.9520, L500.4050 ####[facility] [address] [place], [address] IG% 0.400 Normal 0.0-0.9 [facility] Comment on above: Result Comment: IG% - Immature Granulocytes (promyelocytes, myelocytes andmetamyelocytes) > 1% indicates that a LEFT SHIFT is Present. Performed By: #### L 100.0100, L501.2300, L501.9520, L500.4050 ####[facility] [address] [place], [address] Lymphocytes/100 WBC (Bld) 16.2 % Low 19-41 [facility] Comment on above: Performed By: #### L 100.0100, L501.2300, L501.9520, L500.4050 ####[facility] [address] [place], [address] MCH (RBC) [Entitic mass] 26.5 pg Low 27.0-32.0 [facility] Comment on above: Performed By: #### L 100.0100, L501.2300, L501.9520, L500.4050 ####[facility] [address] [place], [address] MCHC (RBC) [Mass/Vol] 31.9 g/dL Low 32-36 [facility] Comment on above: Performed By: #### L 100.0100, L501.2300, L501.9520, L500.4050 ####[facility] [address] [place], [address] MCV (RBC) [Entitic vol] 83.2 fL Normal 81-99 [facility] Comment on above: Performed By: #### L 100.0100, L501.2300, L501.9520, L500.4050 ####[facility] [address] [place], [address] Monocytes/100 WBC (Bld) 12.0 % High 0-10 [facility] Comment on above: Performed By: #### L 100.0100, L501.2300, L501.9520, L500.4050 ####[facility] [address] [place], [address] Neutrophils/100 WBC (Bld) 68.9 % Normal 47-70 [facility] Comment on above: Performed By: #### L 100.0100, L501.2300, L501.9520, L500.4050 ####[facility] [address] [place], [address] Nucleated RBC (Bld) [#/Vol] 0 10*3/uL Normal 0-5 [facility] Comment on above: Performed By: #### L 100.0100, L501.2300, L501.9520, L500.4050 ####[facility] [address] [place], [address] Platelet mean volume (Bld) [Entitic vol] 8.2 fL Normal 6.2-12.0 [facility] Comment on above: Performed By: #### L 100.0100, L501.2300, L501.9520, L500.4050 ####[facility] [address] [place], [address] Platelets (Bld) [#/Vol] 318 10*3/uL Normal 150-450 [facility] Comment on above: Performed By: #### L 100.0100, L501.2300, L501.9520, L500.4050 ####[facility] [address] [place], [address] RBC (Bld) [#/Vol] 3.88 10*6/uL Low 4.2-5.4 [facility] Comment on above: Performed By: #### L 100.0100, L501.2300, L501.9520, L500.4050 ####[facility] [address] [place], [address] RDW SD 53.1 fl High 35.1-43.9 [facility] Comment on above: Performed By: #### L 100.0100, L501.2300, L501.9520, L500.4050 ####[facility] [address] [place], [address] WBC (Bld) [#/Vol] 7.3 10*3/uL Normal 4.4-11.0 [facility] Comment on above: Performed By: #### L 100.0100, L501.2300, L501.9520, L500.4050 ####[facility] [address] [place], [address] Comprehensive Metabolic Prof [facility] 12-14-2024 Albumin [Mass/Vol] 3.8 g/dL Normal 3.4-4.8 [facility] Comment on above: Performed By: #### L 100.0100, L501.2300, L501.9520, L500.4050 ####[facility] [address] [place], [address] Albumin/Globulin [Mass ratio] 1.4 {ratio} Normal 0.9-2.4 [facility] Comment on above: Performed By: #### L 100.0100, L501.2300, L501.9520, L500.4050 ####[facility] [address] [place], [address] ALK PHOS 87 U/L Normal 35-104 [facility] Comment on above: Performed By: #### L 100.0100, L501.2300, L501.9520, L500.4050 ####[facility] [address] [place], [address] ALT [Catalytic activity/Vol] 9 U/L Normal <=34 [facility] Comment on above: Performed By: #### L 100.0100, L501.2300, L501.9520, L500.4050 ####[facility] [address] [place], [address] AST [Catalytic activity/Vol] 14 U/L Normal <=31 [facility] Comment on above: Performed By: #### L 100.0100, L501.2300, L501.9520, L500.4050 ####[facility] [address] [place], [address] Bilirubin [Mass/Vol] 0.17 mg/dL Normal 0.00-1.30 [facility] Comment on above: Performed By: #### L 100.0100, L501.2300, L501.9520, L500.4050 ####[facility] [address] [place], [address] BUN/CRE 17.3 RATIO Normal 10-20 [facility] Comment on above: Performed By: #### L 100.0100, L501.2300, L501.9520, L500.4050 ####[facility] [address] [place], [address] Calcium [Mass/Vol] 9.4 mg/dL Normal 7.6-11.0 [facility] Comment on above: Performed By: #### L 100.0100, L501.2300, L501.9520, L500.4050 ####[facility] [address] [place], [address] Chloride [Moles/Vol] 103 mmol/L Normal 98-108 [facility] Comment on above: Performed By: #### L 100.0100, L501.2300, L501.9520, L500.4050 ####[facility] [address] [place], [address] CO2 [Moles/Vol] 22.0 mmol/L Normal 21.0-32.0 [facility] Comment on above: Performed By: #### L 100.0100, L501.2300, L501.9520, L500.4050 ####[facility] [address] [place], [address] Creatinine [Mass/Vol] 0.58 mg/dL Low 0.70-1.20 [facility] Comment on above: Performed By: #### L 100.0100, L501.2300, L501.9520, L500.4050 ####[facility] [address] [place], [address] ECRCL 64.37 ml/min Normal 50-250 [facility] Comment on above: Performed By: #### L 100.0100, L501.2300, L501.9520, L500.4050 ####[facility] [address] [place], [address] GAP 13 Normal 5-15 [facility] Comment on above: Performed By: #### L 100.0100, L501.2300, L501.9520, L500.4050 ####[facility] [address] [place], [address] GFR/1.73 sq M.predicted among non-blacks MDRD (S/P/Bld) [Vol rate/Area] 98 mL/min/{1.73_m2} Normal >60 [facility] Comment on above: Result Comment: mL/m in/1.73m2 CKD-EPI Creatinine Equation (2020) Performed By: #### L 100.0100, L501.2300, L501.9520, L500.4050 ####[facility] [address] [place], [address] Globulin (S) [Mass/Vol] 2.7 g/dL Normal 2.2-4.2 [facility] Comment on above: Performed By: #### L 100.0100, L501.2300, L501.9520, L500.4050 ####[facility] [address] [place], [address] Glucose [Mass/Vol] 157 mg/dL High 70-99 [facility] Comment on above: Performed By: #### L 100.0100, L501.2300, L501.9520, L500.4050 ####[facility] [address] [place], [address] Potassium [Moles/Vol] 4.1 mmol/L Normal 3.3-5.1 [facility] Comment on above: Performed By: #### L 100.0100, L501.2300, L501.9520, L500.4050 ####[facility] [address] [place], [address] Sodium [Moles/Vol] 138 mmol/L Normal 133-145 [facility] Comment on above: Performed By: #### L 100.0100, L501.2300, L501.9520, L500.4050 ####[facility] [address] [place], [address] T PROT 6.5 g/dL Normal 5.9-8.4 [facility] Comment on above: Performed By: #### L 100.0100, L501.2300, L501.9520, L500.4050 ####[facility] [address] [place], [address] Urea nitrogen [Mass/Vol] 10 mg/dL Normal 4-19 [facility] Comment on above: Performed By: #### L 100.0100, L501.2300, L501.9520, L500.4050 ####[facility] [address], [address] Oncology Visit Reporton 11-17 Oncology Visit Report Normal [facility] Phosphoruson 12-14-2024 Phosphate [Mass/Vol] 3.7 mg/dL Normal 2.7-4.5 [facility] Comment on above: Performed By: #### L 100.0100, L501.2300, L501.9520, L500.4050 ####[facility] [address] [place], [address] Thyroid Stim Hormone (TSH)on 12-14-2024 TSH 0.383 uIU/mL Normal 0.300-4.200 [facility] Comment on above: Performed By: #### L 100.0100, L501.2300, L501.9520, L500.4050 ####[facility] [address], [address] Absolute lymphocyte countOrd ered By: Sharif Christianson on 11-30-2024 Lymphocytes Auto (Unsp spec) [#/Vol] 1.07 10*3/uL 0.83-4.51 [facility] Absolute neutrophil countOrd ered By: Sharif Christianson on 11-30-2024 Neutrophils (Bld) [#/Vol] 4.0 10*3/uL 2.0-7.7 [facility] Anion gap in Serum or Plasma Ordered By: Sharif Christianson on 11-30-2024 Anion gap [Moles/Vol] 12 mmol/L 12-30 [facility] Automated blood erythrocyte countOrdered By: Sharif Christianson on 11-30-2024 RBC (Bld) [#/Vol] 3.63 10*6/uL Low 4.2-5.4 [facility] Comment on above: Order Comment: Order Date: 09/23/24Order Info: [id number] - CBCD Performed By: #### L 500.4100, L100.0100, L501.5200, L500.4050, L501.9985 ####[facility] [address] [place], [place], [id number] Automated blood hematocrit ( percentage)Ordered By: Sharif Christianson on 11-30-2024 Hematocrit (Bld) [Volume fraction] 30.7 % Low 37-47 [facility] Comment on above: Order Comment: Order Date: 09/23/24Order Info: 183- - CBCD Performed By: #### L 500.4100, L100.0100, L501.5200, L500.4050, L501.9985 ####[facility] [address] [place], [place], [address] Automated lymphocyte count a s percentage of total leukocytesOrdered By: Sharif Christiansno on 11-30-2024 Lymphocytes/100 WBC (Bld) 16.9 % Low 19-41 [facility] Comment on above: Order Comment: Order Date: 09/23/24Order Info: 183- - CBCD Performed By: #### L 500.4100, L100.0100, L501.5200, L500.4050, L501.9985 ####[facility] [address] [place], [place], [phone] Lymphocytes/100 WBC Auto (Unsp spec) 16.9 % Low -41 [facility] BUN/creatinine ratioOrdered By: Sharif Christianson on 11-30-2024 Urea nitrogen/Creatinine [Mass ratio] 19.2 mg/mg 10-20 [facility] Basophil percentageOrdered B y: Sharif Christianson on 11-30-2024 Basophils/100 WBC (Bld) 0.3 % Normal 0-1 [facility] Comment on above: Order Comment: Order Date: 09/23/24Order Info: [id number]- - CBCD Performed By: #### L 500.4100, L100.0100, L501.5200, L500.4050, L501.9985 ####[facility] [address] [place], [address] Bilirubin, totalOrdered By: Sharif Christianson on 11-30-2024 Bilirubin [Mass/Vol] 0.22 mg/dL Normal 0.00-1.30 [facility] Comment on above: Order Comment: Order Date: 09/23/24Order Info: [id number] - CMPOrder Info: [id number] - LIPIDOrder Info: [id number] - MG Performed By: #### L 500.4100, L100.0100, L501.5200, L500.4050, L501.9985 ####[facility] [address] [place], [address] CBC W/Diff, Automatedon 11-16 Absolute Lymph 1.07 X10 3/uL Normal 0.83-4.51 [facility] Comment on above: Order Comment: Order Date: 09/23/24Order Info: [id number] - CBCD Performed By: #### L 500.4100, L100.0100, L501.5200, L500.4050, L501.9985 ####[facility] [address] [place], [address] Absolute Neut 4.0 X10 3/uL Normal 2.0-7.7 [facility] Comment on above: Order Comment: Order Date: 09/23/24Order Info: [id number] - CBCD Performed By: #### L 500.4100, L100.0100, L501.5200, L500.4050, L501.9985 ####[facility] [address] [place], [address] IG% 0.200 Normal 0.0-0.9 [facility] Comment on above: Order Comment: Order Date: 09/23/24Order Info: [id number] - CBCD Result Comment: IG% - Immature Granulocytes (promyelocytes, myelocytes andmetamyelocytes) > 1% indicates that a LEFT SHIFT is Present. Performed By: #### L 500.4100, L100.0100, L501.5200, L500.4050, L501.9985 ####[facility] [address] [place], [place], [id number] Nucleated RBC (Bld) [#/Vol] 0 10*3/uL Normal 0-5 [facility] Comment on above: Order Comment: Order Date: 09/23/24Order Info: [id number] - CBCD Performed By: #### L 500.4100, L100.0100, L501.5200, L500.4050, L501.9985 ####[facility] [address] [place], [place], [id number] RDW SD 54.1 fl High 35.1-43.9 [facility] Comment on above: Order Comment: Order Date: 09/23/24Order Info: [id number] - CBCD Performed By: #### L 500.4100, L100.0100, L501.5200, L500.4050, L501.9985 ####[facility] [address] [facility] [address] [place], [place], [id number] CT Chest AND Abd W/ Contrast on 11-30-2024 CT Chest AND Abd W/ Contrast Normal [facility] Calculated very low density lipoprotein (VLDL) cholesterol measurementOrdered By: Sharif Christianson on 11-30-2024 Calculated very low density lipoprotein (VLDL) cholesterol measurement 18 mg/dL [facility] VLDL Cholesterol 18 mg/dL [facility] Carbon dioxide, total [Moles /volume] in Central venous bloodOrdered By: Sharif Christianson on 11-30-2024 CO2 [Moles/Vol] 21.2 mmol/L Normal 21.0-32.0 [facility] Comment on above: Order Comment: Order Date: 09/23/24Order Info: [id number] - CMPOrder Info: [id number] - LIPIDOrder Info: [id number] - MG Performed By: #### L 500.4100, L100.0100, L501.5200, L500.4050, L501.9985 ####[facility] [address] [place], [address] Chloride assayOrdered By: Yessenia Christianson on 11-30-2024 Chloride [Moles/Vol] 103 mmol/L Normal 98-108 [facility] Comment on above: Order Comment: Order Date: 09/23/24Order Info: [id number] - CMPOrder Info: [id number] - LIPIDOrder Info: [id number] - MG Performed By: #### L 500.4100, L100.0100, L501.5200, L500.4050, L501.9985 ####[facility] [address] [place], [address] Comprehensive Metabolic Prof ilon 11-30-2024 ALK PHOS 80 U/L Normal 35-104 [facility] Comment on above: Order Comment: Order Date: 09/23/24Order Info: [id number] - CMPOrder Info: [id number] - LIPIDOrder Info: [id number] - MG Performed By: #### L 500.4100, L100.0100, L501.5200, L500.4050, L501.9985 ####[facility] [address] [place], [address] BUN/CRE 19.2 RATIO Normal 10-20 [facility] Comment on above: Order Comment: Order Date: 09/23/24Order Info: [id number] - CMPOrder Info: [id number] - LIPIDOrder Info: [id number] - MG Performed By: #### L 500.4100, L100.0100, L501.5200, L500.4050, L501.9985 ####[facility] [address] [place], [address] GAP 12 Normal 5-15 [facility] Comment on above: Order Comment: Order Date: 09/23/24Order Info: [id number] - CMPOrder Info: [id number] - LIPIDOrder Info: [id number] - MG Performed By: #### L 500.4100, L100.0100, L501.5200, L500.4050, L501.9985 ####[facility] [address] [place], [address] T PROT 6.0 g/dL Normal 5.9-8.4 [facility] Comment on above: Order Comment: Order Date: 09/23/24Order Info: [id number] - CMPOrder Info: [id number] - LIPIDOrder Info: [id number] - MG Performed By: #### L 500.4100, L100.0100, L501.5200, L500.4050, L501.9985 ####[facility] [address] [place], [address] Comprehensive Metabolic Prof ilOrdered By: Sharif Christianson on 11-30-2024 AST [Catalytic activity/Vol] 18 U/L Normal <=31 [facility] Comment on above: Order Comment: Order Date: 09/23/24Order Info: [id number] - CMPOrder Info: [id number] - LIPIDOrder Info: [id number] - MG Performed By: #### L 500.4100, L100.0100, L501.5200, L500.4050, L501.9985 ####[facility] [address] [place], [address] Eosinophil percentageOrdered By: Sharif Christianson on 11-30-2024 Eosinophils/100 WBC (Bld) 1.6 % Normal 0-5 [facility] Comment on above: Order Comment: Order Date: 09/23/24Order Info: [id number] - CBCD Performed By: #### L 500.4100, L100.0100, L501.5200, L500.4050, L501.9985 ####[facility] [address] [place], [address] Erythrocyte distribution wid th (RBC) [Ratio]Ordered By: Sharif Christianson on 11-30-2024 Erythrocyte distribution width (RBC) [Entitic vol] 54.1 fL High 35.1-43.9 [facility] Erythrocyte distribution wid th ratioOrdered By: Sharif Christianson on 11-30-2024 Erythrocyte distribution width (RBC) [Ratio] 17.4 % High 11.6-14.6 [facility] Comment on above: Order Comment: Order Date: 09/23/24Order Info: [id number] - CBCD Performed By: #### L 500.4100, L100.0100, L501.5200, L500.4050, L501.9985 ####[facility] [address] [facility] [place], [place], [id number] Erythrocyte distribution wid th standard deviationOrdered By: Sharif Christianson on 11-30-2024 Erythrocyte distribution width (RBC) [Ratio] 54.1 fl High 35.1-43.9 [facility] GFR/1.73 sq M.predicted shakir g non-blacks MDRD (S/P/Bld) [Vol rate/Area]Ordered By: Sharif Christianson on 11-30-2024 Estimated GFR (MDRD) Non-Af Amer 96 >60 [facility] Comment on above: mL/min/1.73m2 CKD-EP I Creatinine Equation (2020) Glomerular filtration rate ( GFR) estimation/1.73 sq m using serum, plasma, or whole bOrdered By: Sharif Christianson on 11-30-2024 GFR/1.73 sq M.predicted among non-blacks MDRD (S/P/Bld) [Vol rate/Area] 96 mL/min/{1.73_m2} Normal >60 [facility] Comment on above: mL/min/1.73m2 CKD-EP I Creatinine Equation (2020) Order Comment: Order Date: 09/23/24Order Info: [id number] - CMPOrder Info: [id number] - LIPIDOrder Info: [id number] - MG Result Comment: mL/m in/1.73m2 CKD-EPI Creatinine Equation (2020) Performed By: #### L 500.4100, L100.0100, L501.5200, L500.4050, L501.9985 ####[facility] [address] [place], [place], [address] Hemoglobin A1c percentageOrd ered By: Sharif Christianson on 11-30-2024 HbA1c (Bld) [Mass fraction] 6.9 % High <=5.6 [facility] Comment on above: Normal < 5.7 % Predi abetic 5.7 - 6.4 % Diabetic >or= 6.5 % Please note range changes. Order Comment: Order Date: 09/23/24Order Info: [id number] - A1C Result Comment: Norm al < 5.7 % Prediabetic 5.7 - 6.4 % Diabetic >or= 6.5 % Please note range changes. Performed By: #### L 500.4100, L100.0100, L501.5200, L500.4050, L501.9985 ####[facility] [address] [place], [address] Hemoglobin measurementOrdere d By: Sharif Christianson on 11-30-2024 Hemoglobin (Bld) [Mass/Vol] 9.7 g/dL Low 12.0-15.0 [facility] Comment on above: Order Comment: Order Date: 09/23/24Order Info: [id number] - CBCD Performed By: #### L 500.4100, L100.0100, L501.5200, L500.4050, L501.9985 ####[facility] [address] [place], [place], [address] Immature granulocytes/100 WB C Auto (Bld)Ordered By: Sharif Christianson on 11-30-2024 Immature granulocytes/100 WBC (Bld) 0.200 % 0.0-0.9 [facility] Comment on above: IG% - Immature Granu locytes (promyelocytes, myelocytes and metamyelocytes) > 1% indicates that a LEFT SHIFT is Present. LDL calc ser/plasOrdered By: Sharif Christianson on 11-30-2024 Cholesterol in LDL [Mass/Vol] 25 mg/dL Normal [facility] Comment on above: Picgynzlvl=642-985 m g/dL & Higher Ymox=872 mg/dL or greater Order Comment: Order Date: 09/23/24Order Info: [id number] - CMPOrder Info: [id number] - LIPIDOrder Info: [id number] - MG Result Comment: Bord vuczxt=222-937 mg/dL Higher Faih=493 mg/dL or greater Performed By: #### L 500.4100, L100.0100, L501.5200, L500.4050, L501.9985 ####[facility] [address] [place], [address] LDL Cholesterol, Calculated 25 mg/dL [facility] Comment on above: Wuroihlxie=218-292 m g/dL & Higher Jdnw=204 mg/dL or greater Lipid Profileon 11-30-2024 CHOL:HDL 2.12 Normal [facility] Comment on above: Order Comment: Order Date: 09/23/24Order Info: [id number] - CMPOrder Info: [id number] - LIPIDOrder Info: [id number] - MG Performed By: #### L 500.4100, L100.0100, L501.5200, L500.4050, L501.9985 ####[facility] [address] [place], [address] Cholesterol in VLDL [Mass/Vol] 18 mg/dL Normal 5-40 [facility] Comment on above: Order Comment: Order Date: 09/23/24Order Info: [id number] - CMPOrder Info: [id number] - LIPIDOrder Info: [id number] - MG Performed By: #### L 500.4100, L100.0100, L501.5200, L500.4050, L501.9985 ####[facility] [address] [place], [address] Lymphocytes Auto (Unsp spec) [#/Vol]Ordered By: Sharif Christianson on 11-30-2024 Lymphocytes (Bld) [#/Vol] 1.07 10*3/uL 0.83-4.5 1 [facility] MCV (mean corpuscular volume ) determinationOrdered By: Sharif Christianson on 11-30-2024 MCV (RBC) [Entitic vol] 84.6 fL Normal 81-99 [facility] Comment on above: Order Comment: Order Date: 09/23/24Order Info: [id number] - CBCD Performed By: #### L 500.4100, L100.0100, L501.5200, L500.4050, L501.9985 ####[facility] [address] [place], [address] Magnesium measurement (mass/ volume)Ordered By: Sharif Christianson on 11-30-2024 Magnesium [Mass/Vol] 1.5 mg/dL Normal 1.5-2.2 [facility] Comment on above: Order Comment: Order Date: 09/23/24Order Info: [id number] - CMPOrder Info: [id number] - LIPIDOrder Info: [id number] - MG Performed By: #### L 500.4100, L100.0100, L501.5200, L500.4050, L501.9985 ####[facility] [address] [place], [address] Magnesium (Unsp spec) [Mass/Vol] 1.5 mg/dL 1.5-2.2 [facility] Mean corpuscular hemoglobin (MCH) determinationOrdered By: Sharif Christianson on 11-30-2024 MCH (RBC) [Entitic mass] 26.7 pg Low 27.0-32.0 [facility] Comment on above: Order Comment: Order Date: 09/23/24Order Info: [id number] - CBCD Performed By: #### L 500.4100, L100.0100, L501.5200, L500.4050, L501.9985 ####[facility] [address] [place], [address] Mean corpuscular hemoglobin concentration (MCHC) determinationOrdered By: Sharif Christianson on 11-30-2024 MCHC (RBC) [Mass/Vol] 31.6 g/dL Low 32-36 [facility] Comment on above: Order Comment: Order Date: 09/23/24Order Info: [id number] - CBCD Performed By: #### L 500.4100, L100.0100, L501.5200, L500.4050, L501.9985 ####[facility] [address] [place], [address] Mean platelet volume determi nationOrdered By: Sharif Christianson on 11-30-2024 Platelet mean volume (Bld) [Entitic vol] 8.7 fL Normal 6.2-12.0 [facility] Comment on above: Order Comment: Order Date: 09/23/24Order Info: [id number] - CBCD Performed By: #### L 500.4100, L100.0100, L501.5200, L500.4050, L501.9985 ####[facility] [address], [address] Monocyte percentageOrdered B y: Sharif Christianson on 11-30-2024 Monocytes/100 WBC (Bld) 17.2 % High 0-10 [facility] Comment on above: Order Comment: Order Date: 09/23/24Order Info: [id number] - CBCD Performed By: #### L 500.4100, L100.0100, L501.5200, L500.4050, L501.9985 ####[facility] [address], [address] Neutrophil percentageOrdered By: Sharif Christianson on 11-30-2024 Neutrophils/100 WBC (Bld) 63.8 % Normal 47-70 [facility] Comment on above: Order Comment: Order Date: 09/23/24Order Info: [id number] - CBCD Performed By: #### L 500.4100, L100.0100, L501.5200, L500.4050, L501.9985 ####[facility] [address] [place], [address] Nucleated red blood cell per centageOrdered By: Sharif Christianson on 11-30-2024 Nucleated RBC/100 WBC (Bld) [Ratio] 0 % 0-5 [facility] Platelet countOrdered By: Yessenia Christianson on 11-30-2024 Platelets (Bld) [#/Vol] 273 10*3/uL Normal 150-450 [facility] Comment on above: Order Comment: Order Date: 09/23/24Order Info: [id number] - CBCD Performed By: #### L 500.4100, L100.0100, L501.5200, L500.4050, L501.9985 ####[facility] [address] [place], [address] Potassium measurement (mass/ volume)Ordered By: Sharif Christianson on 11-30-2024 Potassium [Moles/Vol] 4.0 mmol/L Normal 3.3-5.1 [facility] Comment on above: Order Comment: Order Date: 09/23/24Order Info: [id number] - CMPOrder Info: [id number] - LIPIDOrder Info: [id number] - MG Performed By: #### L 500.4100, L100.0100, L501.5200, L500.4050, L501.9985 ####[facility] [address] [place], [address] Potassium (Unsp spec) [Mass/Vol] 4.0 mmol/L 3.3-5.1 [facility] Screening total cholesterol/ high density lipoprotein (HDL) cholesterol ratioOrdered By: Sharif Christianson on 11-30-2024 Cholesterol.total/Cholest irasema in HDL [Mass ratio] 2.12 {ratio} [facility] Serum creatinine measurement (mass/volume)Ordered By: Sharif Christianson on 11-30-2024 Creatinine [Mass/Vol] 0.62 mg/dL Low 0.70-1.20 [facility] Comment on above: Order Comment: Order Date: 09/23/24Order Info: [id number] - CMPOrder Info: [id number] - LIPIDOrder Info: [id number] - MG Performed By: #### L 500.4100, L100.0100, L501.5200, L500.4050, L501.9985 ####[facility] [address] [place], [address] Serum globulin measurementOr dered By: Sharif Christianson on 11-30-2024 Globulin (S) [Mass/Vol] 2.6 g/dL Normal 2.2-4.2 [facility] Comment on above: Order Comment: Order Date: 09/23/24Order Info: [id number] - CMPOrder Info: [id number] - LIPIDOrder Info: [id number] - MG Performed By: #### L 500.4100, L100.0100, L501.5200, L500.4050, L501.9985 ####[facility] [address] [place], [place], [address] Serum glucose measurement (m ass/volume)Ordered By: Sharif Christianson on 11-30-2024 Glucose [Mass/Vol] 186 mg/dL High 70-99 [facility] Comment on above: Order Comment: Order Date: 09/23/24Order Info: [id number] - CMPOrder Info: [id number] - LIPIDOrder Info: [id number] - MG Performed By: #### L 500.4100, L100.0100, L501.5200, L500.4050, L501.9985 ####[facility] [address] [place], [address] Serum or plasma alanine amezquita otransferase (ALT) measurementOrdered By: Sharif Christianson on 11-30-2024 ALT [Catalytic activity/Vol] 15 U/L Normal <=34 [facility] Comment on above: Order Comment: Order Date: 09/23/24Order Info: [id number] - CMPOrder Info: [id number] - LIPIDOrder Info: [id number] - MG Performed By: #### L 500.4100, L100.0100, L501.5200, L500.4050, L501.9985 ####[facility] [address] [place], [place], [address] Serum or plasma albumin joaquin urement (mass/volume)Ordered By: Sharif Christianson on 11-30-2024 Albumin [Mass/Vol] 3.4 g/dL Normal 3.4-4.8 [facility] Comment on above: Order Comment: Order Date: 09/23/24Order Info: [id number] - CMPOrder Info: [id number] - LIPIDOrder Info: [id number] - MG Performed By: #### L 500.4100, L100.0100, L501.5200, L500.4050, L501.9985 ####[facility] [address] [place], [address] Serum or plasma albumin/glob ulin mass ratioOrdered By: Sharif Christianson on 11-30-2024 Albumin/Globulin [Mass ratio] 1.3 {ratio} Normal 0.9-2.4 [facility] Comment on above: Order Comment: Order Date: 09/23/24Order Info: [id number] - CMPOrder Info: [id number] - LIPIDOrder Info: - MG Performed By: #### L 500.4100, L100.0100, L501.5200, L500.4050, L501.9985 ####[facility] [address] [place], [place], [address] Serum or plasma alkaline gumaro sphatase measurementOrdered By: Sharif Christianson on 11-30-2024 ALP [Catalytic activity/Vol] 80 U/L 35-104 [facility] Serum or plasma calcium joaquin urement (mass/volume)Ordered By: Sharif Christianson on 11-30-2024 Calcium [Mass/Vol] 9.3 mg/dL Normal 7.6-11.0 [facility] Comment on above: Order Comment: Order Date: 09/23/24Order Info: [id number] - CMPOrder Info: [id number] - LIPIDOrder Info: [id number] - MG Performed By: #### L 500.4100, L100.0100, L501.5200, L500.4050, L501.9985 ####[facility] [address] [place], [place], [address] Serum or plasma cholesterol in HDL measurement (mass/volume)Ordered By: Sharif Christianson on 11-30-2024 Cholesterol in HDL [Mass/Vol] 38 mg/dL Low [facility] Comment on above: National Cholesterol Education Program (NCEP) guidelines:<40 mg/dL: Low HDL-cholesterol (major risk factor for CHD)>= 60 mg/dL: High HDL-cholesterol (negative risk factor for CHD)HDL-cholesterol is affected by a number of factors, e.g. smoking, exercise, hormones, sex and age. Order Comment: Order Date: 09/23/24Order Info: [id number] - CMPOrder Info: [id number] - LIPIDOrder Info: [id number] - MG Result Comment: Ledy onal Cholesterol Education Program (NCEP) guidelines:<40 mg/dL: Low HDL-cholesterol (major risk factor for CHD)>= 60 mg/dL: High HDL-cholesterol (negative risk factor forCHD)HDL-cholesterol is affected by a number of factors, e.g.smoking, exercise, hormones, sex and age. Performed By: #### L 500.4100, L100.0100, L501.5200, L500.4050, L501.9985 ####[facility] [address] [place], [place], [address] Serum or plasma cholesterol measurement (mass/volume)Ordered By: Sharif Christianson on 11-30-2024 Cholesterol [Mass/Vol] 80 mg/dL Normal <=200 [facility] Comment on above: Cholesterol level, D esirable <200 mg/dLBorderline high cholesterol 200-239 mg/dLHigh cholesterol >=240 mg/dLRecommendations of the NCEP Adult Treatment Panel for the following risk-cutoff thresholds for the [place] population. Order Comment: Order Date: 09/23/24Order Info: [id number] - CMPOrder Info: [id number] - LIPIDOrder Info: [id number] - MG Result Comment: Chol esterol level, Desirable <200 mg/dLBorderline high cholesterol 200-239 mg/dLHigh cholesterol >=240 mg/dLRecommendations of the NCEP Adult Treatment Panel for thefollowing risk-cutoff thresholds for the [place] [employer] health. Performed By: #### L 500.4100, L100.0100, L501.5200, L500.4050, L501.9985 ####[facility] [address] [place], [address] Serum or plasma urea nitroge n measurement (mass/volume)Ordered By: Sharif Christianson on 11-30-2024 Urea nitrogen [Mass/Vol] 12 mg/dL Normal 4-19 [facility] Comment on above: Order Comment: Order Date: 09/23/24Order Info: [id number] - CMPOrder Info: [id number] - LIPIDOrder Info: - MG Performed By: #### L 500.4100, L100.0100, L501.5200, L500.4050, L501.9985 ####[facility] [address] [place], [address] Sodium levelOrdered By: Sharif Christianson on 11-30-2024 Sodium [Moles/Vol] 136 mmol/L Normal 133-145 [facility] Comment on above: Order Comment: Order Date: 09/23/24Order Info: [id number] - CMPOrder Info: [id number] - LIPIDOrder Info: [id number] - MG Performed By: #### L 500.4100, L100.0100, L501.5200, L500.4050, L501.9985 ####[facility] [address] [place], [address] Total proteinOrdered By: Link Christianson on 11-30-2024 Protein [Mass/Vol] 6.0 g/dL 5.9-8.4 [facility] Triglycerides measurementOrd ered By: Sharif Christianson on 11-30-2024 Triglyceride [Mass/Vol] 88 mg/dL Normal [facility] Comment on above: The drugs N-Acetylcy steine and Metamizole may falsely depress this assay. Normal range: <150 mg/dLBorderline High: 150-199 mg/dLHigh: 200-499 mg/dLVery High: >500 mg/dL Order Comment: Order Date: 09/23/24Order Info: [id number] - CMPOrder Info: [id number] - LIPIDOrder Info: [id number] - MG Result Comment: The drugs N-Acetylcysteine and Metamizole may falselydepress this assay.Normal range: <150 mg/dLBorderline High: 150-199 mg/dLHigh: 200-499 mg/dLVery High: >500 mg/dL Performed By: #### L 500.4100, L100.0100, L501.5200, L500.4050, L501.9985 ####[facility] [address] [facility] [place], [place], [address] White blood cell (WBC) count Ordered By: Sharif Christianson on 11-30-2024 WBC (Bld) [#/Vol] 6.3 10*3/uL Normal 4.4-11.0 [facility] Comment on above: Order Comment: Order Date: 09/23/24Order Info: [id number] - CBCD Performed By: #### L 500.4100, L100.0100, L501.5200, L500.4050, L501.9985 ####[facility] [address] [facility] [place], [place], [address] Absolute neutrophil countOrd ered By: Shannan Waldrop on 11-23-2024 Neutrophils (Bld) [#/Vol] 4.2 10*3/uL 2.0-7.7 [facility] Anion gap in Serum or Plasma Ordered By: Shannan Waldrop on 11-23-2024 Anion gap [Moles/Vol] 14 mmol/L 5-15 [facility] BUN/creatinine ratioOrdered By: Shannan Waldrop on 11-23-2024 Urea nitrogen/Creatinine [Mass ratio] 16.8 mg/mg 10-20 [facility] Basophil percentageOrdered B y: Shannan Waldrop on 11-23-2024 Basophils/100 WBC (Bld) 0.4 % 0-1 [facility] Bilirubin, totalOrdered By: Shannan Waldrop on 11-23-2024 Bilirubin [Mass/Vol] 0.21 mg/dL 0.00-1.30 [facility] CBC W/Diff, Automatedon 04-0 Absolute Lymph 1.17 X10 3/uL Normal 0.83-4.51 [facility] Comment on above: Performed By: #### L 100.0100, L500.4050, L501.9520, L501.2300 ####[facility] [address] [place], [address] Absolute Neut 4.2 X10 3/uL Normal 2.0-7.7 [facility] Comment on above: Performed By: #### L 100.0100, L500.4050, L501.9520, L501.2300 ####[facility] [address] [place], [address] Basophils/100 WBC (Bld) 0.4 % Normal 0-1 [facility] Comment on above: Performed By: #### L 100.0100, L500.4050, L501.9520, L501.2300 ####[facility] [address] [place], [address] Eosinophils/100 WBC (Bld) 2.4 % Normal 0-5 [facility] Comment on above: Performed By: #### L 100.0100, L500.4050, L501.9520, L501.2300 ####[facility] [address] [place], [address] Erythrocyte distribution width (RBC) [Ratio] 18.0 % High 11.6-14.6 [facility] Comment on above: Performed By: #### L 100.0100, L500.4050, L501.9520, L501.2300 ####[facility] [address] [place], [address] Hematocrit (Bld) [Volume fraction] 32.5 % Low 37-47 [facility] Comment on above: Performed By: #### L 100.0100, L500.4050, L501.9520, L501.2300 ####[facility] [address] [place], [address] Hemoglobin (Bld) [Mass/Vol] 10.0 g/dL Low 12.0-15.0 [facility] Comment on above: Performed By: #### L 100.0100, L500.4050, L501.9520, L501.2300 ####[facility] [address] [place], [address] IG% 0.400 Normal 0.0-0.9 [facility] Comment on above: Result Comment: IG% - Immature Granulocytes (promyelocytes, myelocytes andmetamyelocytes) > 1% indicates that a LEFT SHIFT is Present. Performed By: #### L 100.0100, L500.4050, L501.9520, L501.2300 ####[facility] [address] [place], [address] Lymphocytes/100 WBC (Bld) 17.5 % Low 19-41 [facility] Comment on above: Performed By: #### L 100.0100, L500.4050, L501.9520, L501.2300 ####[facility] [address] [place], [address] MCH (RBC) [Entitic mass] 26.8 pg Low 27.0-32.0 [facility] Comment on above: Performed By: #### L 100.0100, L500.4050, L501.9520, L501.2300 ####[facility] [address] [place], [address] MCHC (RBC) [Mass/Vol] 30.8 g/dL Low 32-36 [facility] Comment on above: Performed By: #### L 100.0100, L500.4050, L501.9520, L501.2300 ####[facility] [address] [place], [address] MCV (RBC) [Entitic vol] 87.1 fL Normal 81-99 [facility] Comment on above: Performed By: #### L 100.0100, L500.4050, L501.9520, L501.2300 ####[facility] [address] [place], [address] Monocytes/100 WBC (Bld) 17.2 % High 0-10 [facility] Comment on above: Performed By: #### L 100.0100, L500.4050, L501.9520, L501.2300 ####[facility] [address] [place], [address] Neutrophils/100 WBC (Bld) 62.1 % Normal 47-70 [facility] Comment on above: Performed By: #### L 100.0100, L500.4050, L501.9520, L501.2300 ####[facility] [address] [place], [address] Nucleated RBC (Bld) [#/Vol] 0 10*3/uL Normal 0-5 [facility] Comment on above: Performed By: #### L 100.0100, L500.4050, L501.9520, L501.2300 ####[facility] [address] [place], [address] Platelet mean volume (Bld) [Entitic vol] 8.7 fL Normal 6.2-12.0 [facility] Comment on above: Performed By: #### L 100.0100, L500.4050, L501.9520, L501.2300 ####[facility] [address] [place], [address] Platelets (Bld) [#/Vol] 310 10*3/uL Normal 150-450 [facility] Comment on above: Performed By: #### L 100.0100, L500.4050, L501.9520, L501.2300 ####[facility] [address] [place], [address] RBC (Bld) [#/Vol] 3.73 10*6/uL Low 4.2-5.4 [facility] Comment on above: Performed By: #### L 100.0100, L500.4050, L501.9520, L501.2300 ####[facility] [address] [place], [address] RDW SD 57.4 fl High 35.1-43.9 [facility] Comment on above: Performed By: #### L 100.0100, L500.4050, L501.9520, L501.2300 ####[facility] [address] [place], [address] WBC (Bld) [#/Vol] 6.7 10*3/uL Normal 4.4-11.0 [facility] Comment on above: Performed By: #### L 100.0100, L500.4050, L501.9520, L501.2300 ####[facility] [address] [place], [address] Carbon dioxide, total [Moles /volume] in Central venous bloodOrdered By: Shannan Waldrop on 11-23-2024 CO2 [Moles/Vol] 20.7 mmol/L Low 21.0-32.0 [facility] Chloride assayOrdered By: Adriana Waldrop on 11-23-2024 Chloride [Moles/Vol] 106 mmol/L 98-108 [facility] Comprehensive Metabolic Prof ilon 11-23-2024 Albumin [Mass/Vol] 3.6 g/dL Normal 3.4-4.8 [facility] Comment on above: Performed By: #### L 100.0100, L500.4050, L501.9520, L501.2300 ####[facility] [address] [place], [address] Albumin/Globulin [Mass ratio] 1.3 {ratio} Normal 0.9-2.4 [facility] Comment on above: Performed By: #### L 100.0100, L500.4050, L501.9520, L501.2300 ####[facility] [address] [place], [address] ALK PHOS 78 U/L Normal 35-104 [facility] Comment on above: Performed By: #### L 100.0100, L500.4050, L501.9520, L501.2300 ####[facility] [address] [place], [address] ALT [Catalytic activity/Vol] 16 U/L Normal <=34 [facility] Comment on above: Performed By: #### L 100.0100, L500.4050, L501.9520, L501.2300 ####[facility] [address], [address] AST [Catalytic activity/Vol] 18 U/L Normal <=31 [facility] Comment on above: Performed By: #### L 100.0100, L500.4050, L501.9520, L501.2300 ####[facility] [address] [place], [address] Bilirubin [Mass/Vol] 0.21 mg/dL Normal 0.00-1.30 [facility] Comment on above: Performed By: #### L 100.0100, L500.4050, L501.9520, L501.2300 ####[facility] [address] [place], [address] BUN/CRE 16.8 RATIO Normal 10-20 [facility] Comment on above: Performed By: #### L 100.0100, L500.4050, L501.9520, L501.2300 ####[facility] [address] [place], [address] Calcium [Mass/Vol] 9.0 mg/dL Normal 7.6-11.0 [facility] Comment on above: Performed By: #### L 100.0100, L500.4050, L501.9520, L501.2300 ####[facility] [address] [place], [address] Chloride [Moles/Vol] 106 mmol/L Normal 98-108 [facility] Comment on above: Performed By: #### L 100.0100, L500.4050, L501.9520, L501.2300 ####[facility] [address] [place], [address] CO2 [Moles/Vol] 20.7 mmol/L Low 21.0-32.0 [facility] Comment on above: Performed By: #### L 100.0100, L500.4050, L501.9520, L501.2300 ####[facility] [address] [place], [address] Creatinine [Mass/Vol] 0.57 mg/dL Low 0.70-1.20 [facility] Comment on above: Performed By: #### L 100.0100, L500.4050, L501.9520, L501.2300 ####[facility] [address] [place], [address] ECRCL 64.37 ml/min Normal 50-250 [facility] Comment on above: Performed By: #### L 100.0100, L500.4050, L501.9520, L501.2300 ####[facility] [address] [place], [address] GAP 14 Normal 5-15 [facility] Comment on above: Performed By: #### L 100.0100, L500.4050, L501.9520, L501.2300 ####[facility] [address] [place], [address] GFR/1.73 sq M.predicted among non-blacks MDRD (S/P/Bld) [Vol rate/Area] 98 mL/min/{1.73_m2} Normal >60 [facility] Comment on above: Result Comment: mL/m in/1.73m2 CKD-EPI Creatinine Equation (2020) Performed By: #### L 100.0100, L500.4050, L501.9520, L501.2300 ####[facility] [address] [place], [address] Globulin (S) [Mass/Vol] 2.7 g/dL Normal 2.2-4.2 [facility] Comment on above: Performed By: #### L 100.0100, L500.4050, L501.9520, L501.2300 ####[facility] [address] [place], [address] Glucose [Mass/Vol] 198 mg/dL High 70-99 [facility] Comment on above: Performed By: #### L 100.0100, L500.4050, L501.9520, L501.2300 ####[facility] [address] [place], [address] Potassium [Moles/Vol] 3.9 mmol/L Normal 3.3-5.1 [facility] Comment on above: Performed By: #### L 100.0100, L500.4050, L501.9520, L501.2300 ####[facility] [address] [place], [address] Sodium [Moles/Vol] 141 mmol/L Normal 133-145 [facility] Comment on above: Performed By: #### L 100.0100, L500.4050, L501.9520, L501.2300 ####[facility] [address] [place], [address] T PROT 6.3 g/dL Normal 5.9-8.4 [facility] Comment on above: Performed By: #### L 100.0100, L500.4050, L501.9520, L501.2300 ####[facility] [address] [place], [address] Urea nitrogen [Mass/Vol] 10 mg/dL Normal 4-19 [facility] Comment on above: Performed By: #### L 100.0100, L500.4050, L501.9520, L501.2300 ####[facility] [address] [place], [address] Eosinophil percentageOrdered By: Shannan Waldrop on 11-23-2024 Eosinophils/100 WBC (Bld) 2.4 % 0-5 [facility] Erythrocyte distribution wid th (RBC) [Ratio]Ordered By: Shannan Waldrop on 11-23-2024 Erythrocyte distribution width (RBC) [Entitic vol] 57.4 fL High 35.1-43.9 [facility] Erythrocyte distribution wid th ratioOrdered By: [facility] on 11-23-2024 Erythrocyte distribution width (RBC) [Ratio] 18.0 % High 11.6-14.6 [facility] Estimation of creatinine vinh aranceOrdered By: Shannan Waldrop on 11-23-2024 Estimated Creatinine Clearance Calc 64.37 ml/min 50-250 [facility] GFR/1.73 sq M.predicted shakir g non-blacks MDRD (S/P/Bld) [Vol rate/Area]Ordered By: Shannan Waldrop on 11-23-2024 Estimated GFR (MDRD) Non-Af Amer 98 >60 [facility] Comment on above: mL/min/1.73m2 CKD-EP I Creatinine Equation (2020) Hematocrit Auto (Bld) [Volum e fraction]Ordered By: Shannan Waldrop on 11-23-2024 Hematocrit (Bld) [Volume fraction] 32.5 % Low 37-47 [facility] Hemoglobin measurementOrdere d By: Shannan Waldrop on 11-23-2024 Hemoglobin (Bld) [Mass/Vol] 10.0 g/dL Low 12.0-15.0 [facility] Immature granulocytes/100 WB C Auto (Bld)Ordered By: Shannan Waldrop on 11-23-2024 Immature granulocytes/100 WBC (Bld) 0.400 % 0.0-0.9 [facility] Comment on above: IG% - Immature Granu locytes (promyelocytes, myelocytes and metamyelocytes) > 1% indicates that a LEFT SHIFT is Present. Laboratory - Chemistry and C hemistry - challengeOrdered By: Shannan Waldrop on 11-23-2024 AST [Catalytic activity/Vol] 18 U/L <32 [facility] Lymphocytes Auto (Unsp spec) [#/Vol]Ordered By: Shannan Waldrop on 11-23-2024 Lymphocytes (Bld) [#/Vol] 1.17 10*3/uL 0.83-4.5 1 [facility] Lymphocytes/100 WBC Auto (Un sp spec)Ordered By: Shannan Waldrop on 11-23-2024 Lymphocytes/100 WBC (Bld) 17.5 % Low 19-41 [facility] MCV (mean corpuscular volume ) determinationOrdered By: Shannan Waldrop on 11-23-2024 MCV (RBC) [Entitic vol] 87.1 fL 81-99 [facility] Mean corpuscular hemoglobin (MCH) determinationOrdered By: Shannan Waldrop on 11-23-2024 MCH (RBC) [Entitic mass] 26.8 pg Low 27.0-32.0 [facility] Mean corpuscular hemoglobin concentration (MCHC) determinationOrdered By: Shannan Waldrop on 11-23-2024 MCHC (RBC) [Mass/Vol] 30.8 g/dL Low 32-36 [facility] Mean platelet volume determi nationOrdered By: Shannan Waldrop on 11-23-2024 Platelet mean volume (Bld) [Entitic vol] 8.7 fL 6.2-12.0 [facility] Monocyte percentageOrdered B y: Shannan Waldrop on 11-23-2024 Monocytes/100 WBC (Bld) 17.2 % High 0-10 [facility] Neutrophil percentageOrdered By: Shannan Waldrop on 11-23-2024 Neutrophils/100 WBC (Bld) 62.1 % 47-70 [facility] Nucleated red blood cell per centageOrdered By: Shannan Waldrop on 11-23-2024 Nucleated RBC/100 WBC (Bld) [Ratio] 0 % 0-5 [facility] Oncology Visit Reporton 040 Oncology Visit Report Normal [facility] Phosphoruson 11-23-2024 Phosphate [Mass/Vol] 3.3 mg/dL Normal 2.7-4.5 [facility] Comment on above: Performed By: #### L 100.0100, L500.4050, L501.9520, L501.2300 ####[facility] [address] [place], [address] Platelet countOrdered By: Adriana Waldrop on 11-23-2024 Platelets (Bld) [#/Vol] 310 10*3/uL 150-450 [facility] Potassium (Unsp spec) [Mass/ Vol]Ordered By: Shannan Waldrop on 11-23-2024 Potassium [Moles/Vol] 3.9 mmol/L 3.3-5.1 [facility] RBC Auto (Bld) [#/Vol]Ordere d By: Shannan Waldrop on 11-23-2024 RBC (Bld) [#/Vol] 3.73 10*6/uL Low 4.2-5.4 [facility] Serum creatinine measurement (mass/volume)Ordered By: Shannan Waldrop on 11-23-2024 Creatinine [Mass/Vol] 0.57 mg/dL Low 0.70-1.20 [facility] Serum globulin measurementOr dered By: Shannan Waldrop on 11-23-2024 Globulin (S) [Mass/Vol] 2.7 g/dL 2.2-4.2 [facility] Serum glucose measurement (m ass/volume)Ordered By: Shannan Waldrop on 11-23-2024 Glucose [Mass/Vol] 198 mg/dL High 70-99 [facility] Serum or plasma alanine amezquita otransferase (ALT) measurementOrdered By: Shannan Waldrop on 11-23-2024 ALT [Catalytic activity/Vol] 16 U/L <35 [facility] Serum or plasma albumin joaquin urement (mass/volume)Ordered By: Shannan Waldrop on 11-23-2024 Albumin [Mass/Vol] 3.6 g/dL 3.4-4.8 [facility] Serum or plasma albumin/glob ulin mass ratioOrdered By: Shannan Waldrop on 11-23-2024 Albumin/Globulin [Mass ratio] 1.3 {ratio} 0.9-2.4 [facility] Serum or plasma alkaline gumaro sphatase measurementOrdered By: Shannan Waldrop on 11-23-2024 ALP [Catalytic activity/Vol] 78 U/L 35-104 [facility] Serum or plasma calcium joaquin urement (mass/volume)Ordered By: Shannan Waldrop on 11-23-2024 Calcium [Mass/Vol] 9.0 mg/dL 7.6-11.0 [facility] Serum or plasma urea nitroge n measurement (mass/volume)Ordered By: Shannan Waldrop on 11-23-2024 Urea nitrogen [Mass/Vol] 10 mg/dL 4-19 [facility] Serum phosphorus measurement Ordered By: Shannan Waldrop on 11-23-2024 Phosphorus Level 3.3 mg/dL 2.7-4.5 [facility] Sodium levelOrdered By: Spring Waldrop on 11-23-2024 Sodium [Moles/Vol] 141 mmol/L 133-145 [facility] TSH DL <= 0.005 mIU/L QnOrde red By: Shannan Waldrop on 11-23-2024 Thyroid Stimulating Hormone (TSH) 0.014 uIU/mL Low 0.300-4.200 [facility] Thyroid Stim Hormone (TSH)on 11-23-2024 TSH 0.014 uIU/mL Low 0.300-4.200 [facility] Comment on above: Performed By: #### L 100.0100, L500.4050, L501.9520, L501.2300 ####[facility] [address] [place], [address] Total proteinOrdered By: Howard Waldrop on 11-23-2024 Protein [Mass/Vol] 6.3 g/dL 5.9-8.4 [facility] White blood cell (WBC) count Ordered By: Shannan Benjie on 11-23-2024 WBC (Bld) [#/Vol] 6.7 10*3/uL 4.4-11.0 [facility] MR/BMS.BVSon 11-10-2024 MR/BMS.BVS Normal [facility] CBC W/Diff, Automatedon 10-16 Absolute Neut Normal 2.0-7.7 [facility] Comment on above: Result Comment: NOT COLLECTED Performed By: #### L 100.0100, L501.2300, L500.4050, L501.9520 ####[facility] [address] [place], [address] HCT Normal 37-47 [facility] Comment on above: Result Comment: NOT COLLECTED Performed By: #### L 100.0100, L501.2300, L500.4050, L501.9520 ####[facility] [address] [place], [address] HGB Normal 12.0-15.0 [facility] Comment on above: Result Comment: NOT COLLECTED Performed By: #### L 100.0100, L501.2300, L500.4050, L501.9520 ####[facility] [address] [place], [address] MCH Normal 27.0-32.0 [facility] Comment on above: Result Comment: NOT COLLECTED Performed By: #### L 100.0100, L501.2300, L500.4050, L501.9520 ####[facility] [address] [place], [address] MCHC Normal 32-36 [facility] Comment on above: Result Comment: NOT COLLECTED Performed By: #### L 100.0100, L501.2300, L500.4050, L501.9520 ####[facility] [address] [place], [address] MCV Normal 81-99 [facility] Comment on above: Result Comment: NOT COLLECTED Performed By: #### L 100.0100, L501.2300, L500.4050, L501.9520 ####[facility] [address] [place], [address] NEUT% Normal 47-70 [facility] Comment on above: Result Comment: NOT COLLECTED Performed By: #### L 100.0100, L501.2300, L500.4050, L501.9520 ####[facility] [address] [place], [address] PLT Normal 150-450 [facility] Comment on above: Result Comment: NOT COLLECTED Performed By: #### L 100.0100, L501.2300, L500.4050, L501.9520 ####[facility] [address] [place], [address] RBC Normal 4.2-5.4 [facility] Comment on above: Result Comment: NOT COLLECTED Performed By: #### L 100.0100, L501.2300, L500.4050, L501.9520 ####[facility] [address] [place], [address] RDW CV Normal 11.6-14.6 [facility] Comment on above: Result Comment: NOT COLLECTED Performed By: #### L 100.0100, L501.2300, L500.4050, L501.9520 ####[facility] [address] [place], [address] RDW SD Normal 35.1-43.9 [facility] Comment on above: Result Comment: NOT COLLECTED Performed By: #### L 100.0100, L501.2300, L500.4050, L501.9520 ####[facility] [address] [place], [address] WBC Normal 4.4-11.0 [facility] Comment on above: Result Comment: NOT COLLECTED Performed By: #### L 100.0100, L501.2300, L500.4050, L501.9520 ####[facility] [address] [place], [address] Comprehensive Metabolic Prof ilon 11-02-2024 Albumin [Mass/Vol] 3.7 g/dL Normal 3.4-4.8 [facility] Comment on above: Performed By: #### L 100.0100, L501.2300, L500.4050, L501.9520 ####[facility] [address] [place], [address] Albumin/Globulin [Mass ratio] 1.2 {ratio} Normal 0.9-2.4 [facility] Comment on above: Performed By: #### L 100.0100, L501.2300, L500.4050, L501.9520 ####[facility] [address] [place], [address] ALK PHOS 87 U/L Normal 35-104 [facility] Comment on above: Performed By: #### L 100.0100, L501.2300, L500.4050, L501.9520 ####[facility] [address] [place], [address] ALT [Catalytic activity/Vol] 14 U/L Normal <=34 [facility] Comment on above: Performed By: #### L 100.0100, L501.2300, L500.4050, L501.9520 ####[facility] [address] [place], [address] AST [Catalytic activity/Vol] 19 U/L Normal <=31 [facility] Comment on above: Performed By: #### L 100.0100, L501.2300, L500.4050, L501.9520 ####[facility] [address] [place], [address] Bilirubin [Mass/Vol] 0.27 mg/dL Normal 0.00-1.30 [facility] Comment on above: Performed By: #### L 100.0100, L501.2300, L500.4050, L501.9520 ####[facility] [address] [place], [address] BUN/CRE 21.1 RATIO High 10-20 [facility] Comment on above: Performed By: #### L 100.0100, L501.2300, L500.4050, L501.9520 ####[facility] [address] [place], [address] Calcium [Mass/Vol] 9.3 mg/dL Normal 7.6-11.0 [facility] Comment on above: Performed By: #### L 100.0100, L501.2300, L500.4050, L501.9520 ####[facility] [address] [place], [address] Chloride [Moles/Vol] 104 mmol/L Normal 98-108 [facility] Comment on above: Performed By: #### L 100.0100, L501.2300, L500.4050, L501.9520 ####[facility] [address] [place], [address] CO2 [Moles/Vol] 20.6 mmol/L Low 21.0-32.0 [facility] Comment on above: Performed By: #### L 100.0100, L501.2300, L500.4050, L501.9520 ####[facility] [address] [place], [address] Creatinine [Mass/Vol] 0.57 mg/dL Low 0.70-1.20 [facility] Comment on above: Performed By: #### L 100.0100, L501.2300, L500.4050, L501.9520 ####[facility] [address] [place], [address] ECRCL 64.55 ml/min Normal 50-250 [facility] Comment on above: Performed By: #### L 100.0100, L501.2300, L500.4050, L501.9520 ####[facility] [address] [place], [address] GAP 13 Normal 5-15 [facility] Comment on above: Performed By: #### L 100.0100, L501.2300, L500.4050, L501.9520 ####[facility] [address] [place], [address] GFR/1.73 sq M.predicted among non-blacks MDRD (S/P/Bld) [Vol rate/Area] 98 mL/min/{1.73_m2} Normal >60 [facility] Comment on above: Result Comment: mL/m in/1.73m2 CKD-EPI Creatinine Equation (2020) Performed By: #### L 100.0100, L501.2300, L500.4050, L501.9520 ####[facility] [address] [place], [address] Globulin (S) [Mass/Vol] 3.0 g/dL Normal 2.2-4.2 [facility] Comment on above: Performed By: #### L 100.0100, L501.2300, L500.4050, L501.9520 ####[facility] [address] [place], [address] Glucose [Mass/Vol] 167 mg/dL High 70-99 [facility] Comment on above: Performed By: #### L 100.0100, L501.2300, L500.4050, L501.9520 ####[facility] [address] [place], [address] Potassium [Moles/Vol] 4.1 mmol/L Normal 3.3-5.1 [facility] Comment on above: Performed By: #### L 100.0100, L501.2300, L500.4050, L501.9520 ####[facility] [address] [place], [address] Sodium [Moles/Vol] 137 mmol/L Normal 133-145 [facility] Comment on above: Performed By: #### L 100.0100, L501.2300, L500.4050, L501.9520 ####[facility] [address] [place], [address] T PROT 6.6 g/dL Normal 5.9-8.4 [facility] Comment on above: Performed By: #### L 100.0100, L501.2300, L500.4050, L501.9520 ####[facility] [address] [place], [address] Urea nitrogen [Mass/Vol] 12 mg/dL Normal 4-19 [facility] Comment on above: Performed By: #### L 100.0100, L501.2300, L500.4050, L501.9520 ####[facility] [address] [place], [address] L509.6001on 11-02-2024 CORTISOL 15.40 ug/dL Normal 6.02-18.40 [facility] Comment on above: Performed By: #### L 506.0400, L509.6001, L501.5200 ####[facility] [address] [place], [address] Magnesiumon 11-02-2024 Magnesium [Mass/Vol] 1.6 mg/dL Normal 1.5-2.2 [facility] Comment on above: Performed By: #### L 506.0400, L509.6001, L501.5200 ####[facility] [address] [place], [address] Magnesium (Unsp spec) [Mass/ Vol]Ordered By: Shannan Waldrop on 11-02-2024 Magnesium [Mass/Vol] 1.6 mg/dL 1.5-2.2 [facility] Magnesium measurement (mass/ volume)Ordered By: Shannan Waldrop on 11-02-2024 Magnesium (Unsp spec) [Mass/Vol] 1.6 mg/dL 1.5-2.2 [facility] No Panel InformationOrdered By: Shannan Waldrop on 11-02-2024 Cortisol AM Sample 15.40 ug/dL 6.02-18.40 [facility] [facility] Oncology Visit Reporton 10-16 Oncology Visit Report Normal [facility] Phosphoruson 11-02-2024 Phosphate [Mass/Vol] 2.9 mg/dL Normal 2.7-4.5 [facility] Comment on above: Performed By: #### L 100.0100, L501.2300, L500.4050, L501.9520 ####[facility] [address] [place], [address] T4 Free Directon 11-02-2024 T4 FREE DIRECT 2.00 ng/dL High 0.76-1.46 [facility] Comment on above: Performed By: #### L 506.0400, L509.6001, L501.5200 ####[facility] [address] [place], [address] T4 freeOrdered By: Shannan julio on 11-02-2024 Free T4 [Mass/Vol] 2.00 ng/dL High 0.76-1.46 [facility] Thyroid Stim Hormone (TSH)on 11-02-2024 TSH 0.045 uIU/mL Low 0.300-4.200 [facility] Comment on above: Performed By: #### L 100.0100, L501.2300, L500.4050, L501.9520 ####[facility] [address] [place], [address] L503.0106on 10-13-2024 Cobalamin (Vitamin B12) [Mass/Vol] 409 pg/mL Normal 180-914 [facility] Comment on above: Order Comment: HÉCTOR Lovell ADD ON TO BLOOD IN LAB. THANK YOU!! Performed By: #### L 503.0106 ####[facility] [address] [place], [address] Phosphoruson 10-13-2024 Phosphate [Mass/Vol] 3.1 mg/dL Normal 2.7-4.5 [facility] Comment on above: Performed By: #### L 501.9520, L501.2300, L100.0100 ####[facility] [address] [place], [address] Thyroid Stim Hormone (TSH)on 10-13-2024 TSH 0.196 uIU/mL Low 0.300-4.200 [facility] Comment on above: Performed By: #### L 501.9520, L501.2300, L100.0100 ####[facility] [address] [place], [address] CBC W/Diff, Automatedon 09-19 Absolute Lymph 0.92 X10 3/uL Normal 0.83-4.51 [facility] Comment on above: Performed By: #### L 501.9520, L501.2300, L100.0100 ####[facility] [address] [place], [address] Absolute Neut 4.8 X10 3/uL Normal 2.0-7.7 [facility] Comment on above: Performed By: #### L 501.9520, L501.2300, L100.0100 ####[facility] [address] [place], [address] Basophils/100 WBC (Bld) 0.6 % Normal 0-1 [facility] Comment on above: Performed By: #### L 501.9520, L501.2300, L100.0100 ####[facility] [address] [place], [address] Eosinophils/100 WBC (Bld) 3.3 % Normal 0-5 [facility] Comment on above: Performed By: #### L 501.9520, L501.2300, L100.0100 ####[facility] [address] [place], [address] Erythrocyte distribution width (RBC) [Ratio] 19.1 % High 11.6-14.6 [facility] Comment on above: Performed By: #### L 501.9520, L501.2300, L100.0100 ####[facility] [address] [place], [address] Hematocrit (Bld) [Volume fraction] 33.3 % Low 37-47 [facility] Comment on above: Performed By: #### L 501.9520, L501.2300, L100.0100 ####[facility] [address] [place], [address] Hemoglobin (Bld) [Mass/Vol] 10.3 g/dL Low 12.0-15.0 [facility] Comment on above: Performed By: #### L 501.9520, L501.2300, L100.0100 ####[facility] [address] [place], [address] IG% 0.300 Normal 0.0-0.9 [facility] Comment on above: Result Comment: IG% - Immature Granulocytes (promyelocytes, myelocytes andmetamyelocytes) > 1% indicates that a LEFT SHIFT is Present. Performed By: #### L 501.9520, L501.2300, L100.0100 ####[facility] [address] [place], [address] Lymphocytes/100 WBC (Bld) 13.4 % Low 19-41 [facility] Comment on above: Performed By: #### L 501.9520, L501.2300, L100.0100 ####[facility] [address] [place], [address] MCH (RBC) [Entitic mass] 27.6 pg Normal 27.0-32.0 [facility] Comment on above: Performed By: #### L 501.9520, L501.2300, L100.0100 ####[facility] [address] [place], [address] MCHC (RBC) [Mass/Vol] 30.9 g/dL Low 32-36 [facility] Comment on above: Performed By: #### L 501.9520, L501.2300, L100.0100 ####[facility] [address] [place], [address] MCV (RBC) [Entitic vol] 89.3 fL Normal 81-99 [facility] Comment on above: Performed By: #### L 501.9520, L501.2300, L100.0100 ####[facility] [address] [place], [address] Monocytes/100 WBC (Bld) 12.2 % High 0-10 [facility] Comment on above: Performed By: #### L 501.9520, L501.2300, L100.0100 ####[facility] [address] [place], [address] Neutrophils/100 WBC (Bld) 70.2 % High 47-70 [facility] Comment on above: Performed By: #### L 501.9520, L501.2300, L100.0100 ####[facility] [address] [place], [address] Nucleated RBC (Bld) [#/Vol] 0 10*3/uL Normal 0-5 [facility] Comment on above: Performed By: #### L 501.9520, L501.2300, L100.0100 ####[facility] [address] [place], [address] Platelet mean volume (Bld) [Entitic vol] 9.1 fL Normal 6.2-12.0 [facility] Comment on above: Performed By: #### L 501.9520, L501.2300, L100.0100 ####[facility] [address] [place], [address] Platelets (Bld) [#/Vol] 250 10*3/uL Normal 150-450 [facility] Comment on above: Performed By: #### L 501.9520, L501.2300, L100.0100 ####[facility] [address] [place], [address] RBC (Bld) [#/Vol] 3.73 10*6/uL Low 4.2-5.4 [facility] Comment on above: Performed By: #### L 501.9520, L501.2300, L100.0100 ####[facility] [address] [place], [address] RDW SD 63.1 fl High 35.1-43.9 [facility] Comment on above: Performed By: #### L 501.9520, L501.2300, L100.0100 ####[facility] [address] [place], [address] WBC (Bld) [#/Vol] 6.9 10*3/uL Normal 4.4-11.0 [facility] Comment on above: Performed By: #### L 501.9520, L501.2300, L100.0100 ####[facility] [address] [place], [address] Comprehensive Metabolic Prof ilon 10-12-2024 Albumin [Mass/Vol] 3.7 g/dL Normal 3.4-4.8 [facility] Comment on above: Performed By: #### L 500.4050 ####[facility] [address] [place], [address] Albumin/Globulin [Mass ratio] 1.3 {ratio} Normal 0.9-2.4 [facility] Comment on above: Performed By: #### L 500.4050 ####[facility] [address] [place], [address] ALK PHOS 78 U/L Normal 35-104 [facility] Comment on above: Performed By: #### L 500.4050 ####[facility] [address] [place], [address] ALT [Catalytic activity/Vol] 10 U/L Normal <=34 [facility] Comment on above: Performed By: #### L 500.4050 ####[facility] [address] [place], [address] Anion gap [Moles/Vol] 15 mmol/L Normal 5-15 [facility] Comment on above: Performed By: #### L 500.4050 ####[facility] [address] [place], [address] AST [Catalytic activity/Vol] 17 U/L Normal <=31 [facility] Comment on above: Performed By: #### L 500.4050 ####[facility] [address] [place], [address] Bilirubin [Mass/Vol] 0.25 mg/dL Normal 0.00-1.30 [facility] Comment on above: Performed By: #### L 500.4050 ####[facility] [address] [place], [address] BUN/CRE 27.0 RATIO High 10-20 [facility] Comment on above: Performed By: #### L 500.4050 ####[facility] [address] [place], [address] Calcium [Mass/Vol] 9.0 mg/dL Normal 7.6-11.0 [facility] Comment on above: Performed By: #### L 500.4050 ####[facility] [address] [place], [address] Chloride [Moles/Vol] 103 mmol/L Normal 96-108 [facility] Comment on above: Performed By: #### L 500.4050 ####[facility] [address] [place], [address] CO2 [Moles/Vol] 19.7 mmol/L Low 22.0-29.0 [facility] Comment on above: Performed By: #### L 500.4050 ####[facility] [address] [place], [address] Creatinine [Mass/Vol] 0.6 mg/dL Normal 0.6-1.0 [facility] Comment on above: Performed By: #### L 500.4050 ####[facility] [address] [place], [address] ECRCL 65.27 ml/min Normal [facility] Comment on above: Performed By: #### L 500.4050 ####[facility] [address] [place], [address] GFR/1.73 sq M.predicted among non-blacks MDRD (S/P/Bld) [Vol rate/Area] 98 mL/min/{1.73_m2} Normal >60 [facility] Comment on above: Result Comment: mL/m in/1.73m2 CKD-EPI Creatinine Equation (2020) Performed By: #### L 500.4050 ####[facility] [address] [place], [address] Globulin (S) [Mass/Vol] 2.9 g/dL Normal 2.2-4.2 [facility] Comment on above: Performed By: #### L 500.4050 ####[facility] [address] [place], [address] Glucose [Mass/Vol] 278 mg/dL High 70-99 [facility] Comment on above: Performed By: #### L 500.4050 ####[facility] [address] [place], [address] Potassium [Moles/Vol] 4.0 mmol/L Normal 3.3-5.1 [facility] Comment on above: Performed By: #### L 500.4050 ####[facility] [address] [place], [address] Sodium [Moles/Vol] 137 mmol/L Normal 133-145 [facility] Comment on above: Performed By: #### L 500.4050 ####[facility] [address] [place], [address] T PROT 6.6 g/dL Normal 5.9-8.4 [facility] Comment on above: Performed By: #### L 500.4050 ####[facility] [address] [place], [address] Urea nitrogen [Mass/Vol] 16 mg/dL Normal 4-19 [facility] Comment on above: Performed By: #### L 500.4050 ####[facility] [address] [place], [address] Laboratory - Chemistry and C hemistry - challengeOrdered By: Shannan Waldrop on 10-12-2024 Cobalamin (Vitamin B12) [Mass/Vol] 409 pg/mL 180-914 [facility] Oncology Visit Reporton 09-19 Oncology Visit Report Normal [facility] Blood manual differential co mment interpretation (narrative result)Ordered By: Shannan Waldrop on 09-21-2024 Manual differential comment Kuldip (Bld) [Interp] SCANNED [facility] CBC W/Diff, Automatedon Anisocytosis Ql (Bld) 2+ Normal [facility] Comment on above: Performed By: #### L 501.9520, L501.5200, L501.2300, L500.4050, L100.0100, L506.0400 ####[facility] [address] [place], [address] OVALOCYTE 2+ Normal [facility] Comment on above: Performed By: #### L 501.9520, L501.5200, L501.2300, L500.4050, L100.0100, L506.0400 ####[facility] [address] [place], [address] TEAR DROP RARE Normal [facility] Comment on above: Performed By: #### L 501.9520, L501.5200, L501.2300, L500.4050, L100.0100, L506.0400 ####[facility] [address] [place], [address] PLT EST ADEQUATE Normal ADEQ [facility] Comment on above: Performed By: #### L 501.9520, L501.5200, L501.2300, L500.4050, L100.0100, L506.0400 ####[facility] [address] [place], [address] SMEAR COMMENT SCANNED Normal [facility] Comment on above: Performed By: #### L 501.9520, L501.5200, L501.2300, L500.4050, L100.0100, L506.0400 ####[facility] [address] [place], [address] Absolute Neut Normal 2.0-7.7 [facility] Comment on above: Result Comment: DUPL ICATED TO INTERNAL ORDERS Performed By: #### L 500.4050, L100.0100 ####[facility] [address] [place], [address] HCT Normal 37-47 [facility] Comment on above: Result Comment: DUPL ICATED TO INTERNAL ORDERS Performed By: #### L 500.4050, L100.0100 ####[facility] [address] [place], [address] HGB Normal 12.0-15.0 [facility] Comment on above: Result Comment: DUPL ICATED TO INTERNAL ORDERS Performed By: #### L 500.4050, L100.0100 ####[facility] [address] [place], [address] MCH Normal 27.0-32.0 [facility] Comment on above: Result Comment: DUPL ICATED TO INTERNAL ORDERS Performed By: #### L 500.4050, L100.0100 ####[facility] [address] [place], [address] MCHC Normal 32-36 [facility] Comment on above: Result Comment: DUPL ICATED TO INTERNAL ORDERS Performed By: #### L 500.4050, L100.0100 ####[facility] [address] [place], [address] MCV Normal 81-99 [facility] Comment on above: Result Comment: DUPL ICATED TO INTERNAL ORDERS Performed By: #### L 500.4050, L100.0100 ####[facility] [address] [place], [address] NEUT% Normal 47-70 [facility] Comment on above: Result Comment: DUPL ICATED TO INTERNAL ORDERS Performed By: #### L 500.4050, L100.0100 ####[facility] [address] [place], [address] PLT Normal 150-450 [facility] Comment on above: Result Comment: DUPL ICATED TO INTERNAL ORDERS Performed By: #### L 500.4050, L100.0100 ####[facility] [address] [place], [address] RBC Normal 4.2-5.4 [facility] Comment on above: Result Comment: DUPL ICATED TO INTERNAL ORDERS Performed By: #### L 500.4050, L100.0100 ####[facility] [address] [place], [address] RDW CV Normal 11.6-14.6 [facility] Comment on above: Result Comment: DUPL ICATED TO INTERNAL ORDERS Performed By: #### L 500.4050, L100.0100 ####[facility] [address] [place], [address] RDW SD Normal 35.1-43.9 [facility] Comment on above: Result Comment: DUPL ICATED TO INTERNAL ORDERS Performed By: #### L 500.4050, L100.0100 ####[facility] [address] [place], [address] WBC Normal 4.4-11.0 [facility] Comment on above: Result Comment: DUPL ICATED TO INTERNAL ORDERS Performed By: #### L 500.4050, L100.0100 ####[facility] [address] [place], [address] Comprehensive Metabolic Prof nmon 09-21-2024 Albumin [Mass/Vol] 3.3 g/dL Normal 3.2-5.0 [facility] Comment on above: Performed By: #### L 501.9520, L501.5200, L501.2300, L500.4050, L100.0100, L506.0400 ####[facility] [address] [place], [address] Albumin/Globulin [Mass ratio] 0.9 {ratio} Normal 0.9-2.4 [facility] Comment on above: Performed By: #### L 501.9520, L501.5200, L501.2300, L500.4050, L100.0100, L506.0400 ####[facility] [address] [place], [address] ALK P 72 U/L Normal 45-117 [facility] Comment on above: Performed By: #### L 501.9520, L501.5200, L501.2300, L500.4050, L100.0100, L506.0400 ####[facility] [address] [place], [address] ALT [Catalytic activity/Vol] 16 U/L Normal 13-56 [facility] Comment on above: Performed By: #### L 501.9520, L501.5200, L501.2300, L500.4050, L100.0100, L506.0400 ####[facility] [address] [place], [address] AST [Catalytic activity/Vol] 14 U/L Low 15-37 [facility] Comment on above: Performed By: #### L 501.9520, L501.5200, L501.2300, L500.4050, L100.0100, L506.0400 ####[facility] [address] [place], [address] Bilirubin [Mass/Vol] 0.40 mg/dL Normal 0.20-1.00 [facility] Comment on above: Result Comment: For patients on eltrombopag therapy, use of Dimension [place] TBIL is not recommended. Performed By: #### L 501.9520, L501.5200, L501.2300, L500.4050, L100.0100, L506.0400 ####[facility] [address] [place], [address] BUN/CRE 22.2 RATIO High 10-20 [facility] Comment on above: Performed By: #### L 501.9520, L501.5200, L501.2300, L500.4050, L100.0100, L506.0400 ####[facility] [address] [place], [address] CA,Total 9.4 mg/dL Normal 8.5-10.1 [facility] Comment on above: Performed By: #### L 501.9520, L501.5200, L501.2300, L500.4050, L100.0100, L506.0400 ####[facility] [address] [place], [address] Chloride [Moles/Vol] 106 mmol/L Normal 98-107 [facility] Comment on above: Performed By: #### L 501.9520, L501.5200, L501.2300, L500.4050, L100.0100, L506.0400 ####[facility] [address] [place], [address] CO2 [Moles/Vol] 26.0 mmol/L Normal 21.0-32.0 [facility] Comment on above: Performed By: #### L 501.9520, L501.5200, L501.2300, L500.4050, L100.0100, L506.0400 ####[facility] [address] [place], [address] Creatinine [Mass/Vol] 0.72 mg/dL Normal 0.55-1.02 [facility] Comment on above: Result Comment: The validity of the calculated GFR GFRAA in patients over70 years has not been determined. Clinical correlation isessential. Performed By: #### L 501.9520, L501.5200, L501.2300, L500.4050, L100.0100, L506.0400 ####[facility] [address] [place], [address] ECRCL 65.28 ml/min Normal [facility] Comment on above: Performed By: #### L 501.9520, L501.5200, L501.2300, L500.4050, L100.0100, L506.0400 ####[facility] [address] [place], [address] EST GFR - AA 103 mL/min Normal >60 [facility] Comment on above: Result Comment: Afri can [place] GFR Calc Performed By: #### L 501.9520, L501.5200, L501.2300, L500.4050, L100.0100, L506.0400 ####[facility] [address] [place], [address] GAP 7 Normal 5-15 [facility] Comment on above: Performed By: #### L 501.9520, L501.5200, L501.2300, L500.4050, L100.0100, L506.0400 ####[facility] [address] [place], [address] GFR/1.73 sq M.predicted among non-blacks MDRD (S/P/Bld) [Vol rate/Area] 85 mL/min/{1.73_m2} Normal >60 [facility] Comment on above: Result Comment: Non- GFR Calc Performed By: #### L 501.9520, L501.5200, L501.2300, L500.4050, L100.0100, L506.0400 ####[facility] [address] [place], [address] Globulin (S) [Mass/Vol] 3.8 g/dL Normal 2.2-4.2 [facility] Comment on above: Performed By: #### L 501.9520, L501.5200, L501.2300, L500.4050, L100.0100, L506.0400 ####[facility] [address] [place], [address] Glucose [Mass/Vol] 127 mg/dL High 74-106 [facility] Comment on above: Result Comment: Fast ing Glucose result greater than or equal to 126 mg/dLsuggests DIABETES MELLITUS per A.D.A. criteria. Performed By: #### L 501.9520, L501.5200, L501.2300, L500.4050, L100.0100, L506.0400 ####[facility] [address] [place], [address] Potassium [Moles/Vol] 4.2 mmol/L Normal 3.5-5.1 [facility] Comment on above: Performed By: #### L 501.9520, L501.5200, L501.2300, L500.4050, L100.0100, L506.0400 ####[facility] [address] [place], [address] Sodium [Moles/Vol] 140 mmol/L Normal 136-145 [facility] Comment on above: Performed By: #### L 501.9520, L501.5200, L501.2300, L500.4050, L100.0100, L506.0400 ####[facility] [address] [place], [address] T PROT 7.1 g/dL Normal 6.4-8.2 [facility] Comment on above: Performed By: #### L 501.9520, L501.5200, L501.2300, L500.4050, L100.0100, L506.0400 ####[facility] [address] [place], [address] Urea nitrogen [Mass/Vol] 16 mg/dL Normal 7-18 [facility] Comment on above: Performed By: #### L 501.9520, L501.5200, L501.2300, L500.4050, L100.0100, L506.0400 ####[facility] [address] [place], [address] ALB Normal 3.2-5.0 [facility] Comment on above: Result Comment: DUPL ICATED TO INTERNAL ORDERS Performed By: #### L 500.4050, L100.0100 ####[facility] [address] [place], [address] ALK P Normal 45-117 [facility] Comment on above: Result Comment: DUPL ICATED TO INTERNAL ORDERS Performed By: #### L 500.4050, L100.0100 ####[facility] [address] [place], [address] ALT Normal 13-56 [facility] Comment on above: Result Comment: DUPL ICATED TO INTERNAL ORDERS Performed By: #### L 500.4050, L100.0100 ####[facility] [address] [place], [address] AST Normal 15-37 [facility] Comment on above: Result Comment: DUPL ICATED TO INTERNAL ORDERS Performed By: #### L 500.4050, L100.0100 ####[facility] [address] [place], [address] BUN Normal 7-18 [facility] Comment on above: Result Comment: DUPL ICATED TO INTERNAL ORDERS Performed By: #### L 500.4050, L100.0100 ####[facility] [address] [place], [address] BUN/CRE Normal 10-20 [facility] Comment on above: Result Comment: DUPL ICATED TO INTERNAL ORDERS Performed By: #### L 500.4050, L100.0100 ####[facility] [address] [place], [address] CA,Total Normal 8.5-10.1 [facility] Comment on above: Result Comment: DUPL ICATED TO INTERNAL ORDERS Performed By: #### L 500.4050, L100.0100 ####[facility] [address] [place], [address] CL Normal 98-107 [facility] Comment on above: Result Comment: DUPL ICATED TO INTERNAL ORDERS Performed By: #### L 500.4050, L100.0100 ####[facility] [address] [place], [address] CO2 Normal 21.0-32.0 [facility] Comment on above: Result Comment: DUPL ICATED TO INTERNAL ORDERS Performed By: #### L 500.4050, L100.0100 ####[facility] [address] [place], [address] CREAT,SERUM Normal 0.55-1.02 [facility] Comment on above: Result Comment: DUPL ICATED TO INTERNAL ORDERS Performed By: #### L 500.4050, L100.0100 ####[facility] [address] [place], [address] EST GFR Normal >60 [facility] Comment on above: Result Comment: DUPL ICATED TO INTERNAL ORDERS Performed By: #### L 500.4050, L100.0100 ####[facility] [address] [place], [address] EST GFR - AA Normal >60 [facility] Comment on above: Result Comment: DUPL ICATED TO INTERNAL ORDERS Performed By: #### L 500.4050, L100.0100 ####[facility] [address] [place], [address] GAP Normal 5-15 [facility] Comment on above: Result Comment: DUPL ICATED TO INTERNAL ORDERS Performed By: #### L 500.4050, L100.0100 ####[facility] [address] [place], [address] GLU Normal 74-106 [facility] Comment on above: Result Comment: DUPL ICATED TO INTERNAL ORDERS Performed By: #### L 500.4050, L100.0100 ####[facility] [address] [place], [address] Potassium Normal 3.5-5.1 [facility] Comment on above: Result Comment: DUPL ICATED TO INTERNAL ORDERS Performed By: #### L 500.4050, L100.0100 ####[facility] [address] [place], [address] T BILI Normal 0.20-1.00 [facility] Comment on above: Result Comment: DUPL ICATED TO INTERNAL ORDERS Performed By: #### L 500.4050, L100.0100 ####[facility] [address] [place], [address] T PROT Normal 6.4-8.2 [facility] Comment on above: Result Comment: DUPL ICATED TO INTERNAL ORDERS Performed By: #### L 500.4050, L100.0100 ####[facility] [address] [place], [address] Comprehensive Metabolic Profil Normal 136-145 [facility] Comment on above: Result Comment: DUPL ICATED TO INTERNAL ORDERS Performed By: #### L 500.4050, L100.0100 ####[facility] [address] [place], [address] Dacrocytes LM Ql (Bld)Ordere d By: Shannan Waldrop on 09-21-2024 Tear Drop Cells RARE [facility] Estimated glomerular filtrat ion rate (GFR) AmericanOrdered By: Shannan Waldrop on 09-21-2024 Estimated GFR (MDRD) Amer 103 mL/min >60 [facility] Comment on above: GFR Calc Laboratory - Hematology and Cell countsOrdered By: Shannan Waldrop on 09-21-2024 Anisocytosis Ql (Bld) 2+ [facility] Magnesiumon 09-21-2024 Magnesium [Mass/Vol] 2.0 mg/dL Normal 1.6-2.6 [facility] Comment on above: Performed By: #### L 501.9520, L501.5200, L501.2300, L500.4050, L100.0100, L506.0400 ####[facility] [address] [place], [address] Manual differential comment Kuldip (Bld) [Interp]Ordered By: Shannan Waldrop on 09-21-2024 Differential Comment SCANNED [facility] Oncology Visit Reporton Oncology Visit Report Normal [facility] Ovalocyte detectionOrdered B y: Shannan Waldrpo on 09-21-2024 Ovalocytes LM Ql (Bld) 2+ [facility] Ovalocytes LM Ql (Bld)Ordere d By: Shannan Waldrop on 09-21-2024 Ovalocytes 2+ [facility] Phosphoruson 09-21-2024 Phosphate [Mass/Vol] 3.9 mg/dL Normal 2.5-4.9 [facility] Comment on above: Performed By: #### L 501.9520, L501.5200, L501.2300, L500.4050, L100.0100, L506.0400 ####[facility] [address], [address] Platelet estimateOrdered By: Shannan Waldrop on 09-21-2024 Platelets LM Ql (Bld) ADEQUATE ADEQ [facility] Platelets LM Ql (Bld)Ordered By: Shannan Waldrop on 09-21-2024 Platelet Estimate ADEQUATE ADEQ [facility] T4 Free Directon 09-21-2024 T4 FREE DIRECT 1.08 ng/dL Normal 0.76-1.46 [facility] Comment on above: Performed By: #### L 501.9520, L501.5200, L501.2300, L500.4050, L100.0100, L506.0400 ####[facility] [address] [place], [address] Teardrop cell detectionOrder ed By: Shannan Waldrop on 09-21-2024 Dacrocytes LM Ql (Bld) [facility] Thyroid Stim Hormone (TSH)on 09-21-2024 TSH 2.660 uIU/mL Normal 0.358-3.740 [facility] Comment on above: Performed By: #### L 501.9520, L501.5200, L501.2300, L500.4050, L100.0100, L506.0400 ####[facility] [address] [place], [address] Carotid Duplex Ultrasoundon 09-20-2024 Carotid Duplex Ultrasound Normal [facility] Lower Ext Art Exam w/ Exerci elgin 09-20-2024 Lower Ext Art Exam w/ Exercise Normal [facility] Blood polychromasia detectio n by light microscopyOrdered By: Shannan Waldrop on 09-06-2024 Polychromasia LM Ql (Bld) [facility] CBC W/Diff, Automatedon 08-19 HYPOCHROMASIA 2+ Normal [facility] Comment on above: Performed By: #### L 100.0100, L500.4050, L501.5200 ####[facility] [address] [place], [address] Anisocytosis Ql (Bld) 2+ Normal [facility] Comment on above: Performed By: #### L 100.0100, L500.4050, L501.5200 ####[facility] [address] [place], [address] POLYCHROMASIA RARE Normal [facility] Comment on above: Performed By: #### L 100.0100, L500.4050, L501.5200 ####[facility] [address] [place], [address] SMEAR COMMENT SCANNED Normal [facility] Comment on above: Performed By: #### L 100.0100, L500.4050, L501.5200 ####[facility] [address] [place], [address] Comprehensive Metabolic Prof ilon 09-06-2024 Albumin [Mass/Vol] 3.6 g/dL Normal 3.2-5.0 [facility] Comment on above: Result Comment: PER [facility] PT NOT SCHEDULED Performed By: #### L 100.0100, L500.4050, L501.5200 ####[facility] [address] [place], [address] Albumin/Globulin [Mass ratio] 1.0 {ratio} Normal 0.9-2.4 [facility] Comment on above: Performed By: #### L 100.0100, L500.4050, L501.5200 ####[facility] [address] [place], [address] ALK P 69 U/L Normal 45-117 [facility] Comment on above: Result Comment: PER [facility] PT NOT SCHEDULED Performed By: #### L 100.0100, L500.4050, L501.5200 ####[facility] [address] [place], [address] ALT [Catalytic activity/Vol] 21 U/L Normal 13-56 [facility] Comment on above: Result Comment: PER [facility] PT NOT SCHEDULED Performed By: #### L 100.0100, L500.4050, L501.5200 ####[facility] [address] [place], [address] AST [Catalytic activity/Vol] 15 U/L Normal 15-37 [facility] Comment on above: Result Comment: PER [facility] PT NOT SCHEDULED Performed By: #### L 100.0100, L500.4050, L501.5200 ####[facility] [address] [place], [address] Bilirubin [Mass/Vol] 0.40 mg/dL Normal 0.20-1.00 [facility] Comment on above: Result Comment: For patients on eltrombopag therapy, use of Dimension [place] TBIL is not recommended. Performed By: #### L 100.0100, L500.4050, L501.5200 ####[facility] [address] [place], [address] BUN/CRE 13.3 RATIO Normal 10-20 [facility] Comment on above: Result Comment: PER [facility] PT NOT SCHEDULED Performed By: #### L 100.0100, L500.4050, L501.5200 ####[facility] [address] [place], [address] CA,Total 9.2 mg/dL Normal 8.5-10.1 [facility] Comment on above: Result Comment: PER [facility] PT NOT SCHEDULED Performed By: #### L 100.0100, L500.4050, L501.5200 ####[facility] [address] [place], [address] Chloride [Moles/Vol] 108 mmol/L High 98-107 [facility] Comment on above: Result Comment: PER [facility] PT NOT SCHEDULED Performed By: #### L 100.0100, L500.4050, L501.5200 ####[facility] [address] [place], [address] CO2 [Moles/Vol] 23.0 mmol/L Normal 21.0-32.0 [facility] Comment on above: Result Comment: PER [facility] PT NOT SCHEDULED Performed By: #### L 100.0100, L500.4050, L501.5200 ####[facility] [address] [place], [address] Creatinine [Mass/Vol] 0.83 mg/dL Normal 0.55-1.02 [facility] Comment on above: Result Comment: The validity of the calculated GFR GFRAA in patients over70 years has not been determined. Clinical correlation isessential. Performed By: #### L 100.0100, L500.4050, L501.5200 ####[facility] [address] [place], [address] ECRCL 63.56 ml/min Normal [facility] Comment on above: Performed By: #### L 100.0100, L500.4050, L501.5200 ####[facility] [address] [place], [address] EST GFR - AA 88 mL/min Normal >60 [facility] Comment on above: Result Comment: Afri can [place] GFR Calc Performed By: #### L 100.0100, L500.4050, L501.5200 ####[facility] [address] [place], [address] GAP 9 Normal 5-15 [facility] Comment on above: Result Comment: PER [facility] PT NOT SCHEDULED Performed By: #### L 100.0100, L500.4050, L501.5200 ####[facility] [address] [place], [address] GFR/1.73 sq M.predicted among non-blacks MDRD (S/P/Bld) [Vol rate/Area] 73 mL/min/{1.73_m2} Normal >60 [facility] Comment on above: Result Comment: Non- GFR Calc Performed By: #### L 100.0100, L500.4050, L501.5200 ####[facility] [address] [place], [address] Globulin (S) [Mass/Vol] 3.5 g/dL Normal 2.2-4.2 [facility] Comment on above: Performed By: #### L 100.0100, L500.4050, L501.5200 ####[facility] [address] [place], [address] Glucose [Mass/Vol] 160 mg/dL High 74-106 [facility] Comment on above: Result Comment: Fast ing Glucose result greater than or equal to 126 mg/dLsuggests DIABETES MELLITUS per A.D.A. criteria. Performed By: #### L 100.0100, L500.4050, L501.5200 ####[facility] [address] [place], [address] Potassium [Moles/Vol] 3.7 mmol/L Normal 3.5-5.1 [facility] Comment on above: Result Comment: PER [facility] PT NOT SCHEDULED Performed By: #### L 100.0100, L500.4050, L501.5200 ####[facility] [address] [place], [address] Sodium [Moles/Vol] 140 mmol/L Normal 136-145 [facility] Comment on above: Result Comment: PER [facility] PT NOT SCHEDULED Performed By: #### L 100.0100, L500.4050, L501.5200 ####[facility] [address] [place], [address] T PROT 7.1 g/dL Normal 6.4-8.2 [facility] Comment on above: Result Comment: PER [facility] PT NOT SCHEDULED Performed By: #### L 100.0100, L500.4050, L501.5200 ####[facility] [address] [place], [address] Urea nitrogen [Mass/Vol] 11 mg/dL Normal 7-18 [facility] Comment on above: Result Comment: PER [facility] PT NOT SCHEDULED Performed By: #### L 100.0100, L500.4050, L501.5200 ####[facility] [address] [place], [place], [address] Hypochromatic red blood cell detectionOrdered By: Shannan Waldrop on 09-06-2024 Hypochromia Ql (Bld) 2+ [facility] Hypochromia Ql (Bld)Ordered By: Shannan Waldrop on 09-06-2024 Hypochromasia 2+ [facility] Magnesiumon 09-06-2024 Magnesium [Mass/Vol] 1.7 mg/dL Normal 1.6-2.6 [facility] Comment on above: Performed By: #### L 100.0100, L500.4050, L501.5200 ####[facility] [address] [place], [place], [address] Oncology Visit Reporton 08-19 Oncology Visit Report Normal [facility] Polychromasia LM Ql (Bld)Ord ered By: Shannan Waldrop on 09-06-2024 Polychromasia RARE [facility] Bilirubin Test strip Ql (U)O rdered By: Sharif Christianson on 08-31-2024 Bilirubin Ql (U) Negative Negative [facility] CT Chest AND Abd W/ Contrast on 08-31-2024 CT Chest AND Abd W/ Contrast Normal [facility] Cardiology Visit Reporton Cardiology Visit Report Normal [facility] Epithelial cells.squamous LM Ql (Urine sed)Ordered By: Sharif Christianson on 08-31-2024 Epithelial cells.squamous LM.HPF (Urine sed) [#/Area] 0 /[HPF] 5-10 [facility] Glucose Ql (U)Ordered By: Yessenia Christianson on 08-31-2024 Urine Glucose (UA) Normal mg/dl Normal [facility] Ketones Test strip Ql (U)Ord ered By: Sharif Christianson on 01-14-2025 Ketones Ql (U) Negative Negative [facility] Microalb:Creat Ratio,Random URon 08-31-2024 Creatinine [Mass/Vol] 69.50 mg/dL Normal NO RANGE EST. [facility] Comment on above: Order Comment: Order Date: 08/26/24Order Info: [id number] - MIACRE Performed By: #### L 502.0250 ####[facility] [address] [place], [place], [address] MALB:CRE 17.8 mg/g CRE Normal <30 mg/g CRE [facility] Comment on above: Order Comment: Order Date: 08/26/24Order Info: 0779-1 - MIACRE Performed By: #### L 502.0250 ####[facility] [address] [place], [place], [address] MICROALBUMIN,UR 12.4 mg/L Normal NO RANGE EST. [facility] Comment on above: Order Comment: Order Date: 08/26/24Order Info: [id number] - MIACRE Performed By: #### L 502.0250 ####[facility] [address] [place], [place], [address] Microscopic analysis of urin e for red blood cells (RBC)Ordered By: Sharif Christianson on 08-31-2024 Urine RBC 0 SEEN /hpf 0-5 [facility] Mucus LM Ql (Urine sed)Order ed By: Sharif Christianson on 08-31-2024 Mucus Ql (Urine sed) 0 SEEN /hpf [facility] Nitrite Test strip Ql (U)Ord ered By: Sharif Christianson on 08-31-2024 Nitrite Ql (U) Negative Negative [facility] Protein Test strip Ql (U)Ord ered By: Sharif Christianson on 08-31-2024 Protein Ql (U) Negative Negative [facility] Random urine microalbumin me asurementOrdered By: Sharif Christianson on 08-31-2024 Urine Random Microalbumin 12.4 mg/L NO RANGE E ST. [facility] Urinalysis, Completeon 08-31 BACTERIA 4+ /hpf Normal None Seen [facility] Comment on above: Order Comment: CLEAN CATCH Performed By: #### L 400.0001 ####[facility] [address] [place], [address] EPI,SQUAMOUS 0-5 SEEN Normal 5-10 [facility] Comment on above: Order Comment: CLEAN CATCH Performed By: #### L 400.0001 ####[facility] [address] [place], [address] WBC 25-50 SEEN Normal 0-5 [facility] Comment on above: Order Comment: CLEAN CATCH Performed By: #### L 400.0001 ####[facility] [address] [place], [address] Mucus Ql (Urine sed) 0 SEEN Normal [facility] Comment on above: Order Comment: CLEAN CATCH Performed By: #### L 400.0001 ####[facility] [address] [place], [address] RBC 0 SEEN Normal 0-5 [facility] Comment on above: Order Comment: CLEAN CATCH Performed By: #### L 400.0001 ####[facility] [address] [place], [address] Urine albumin/creatinine rat io for detection of microalbuminuriaOrdered By: Sharif Christianson on 08-31-2024 Urine Microalbumin/Creatinine Ratio 17.8 mg/g CRE <30 [facility] Urine blood detectionOrdered By: Sharif Christianson on 08-31-2024 Urine Occult Blood 10 /ul High Negative [facility] Urine clarityOrdered By: Link Christianson on 08-31-2024 Clarity (U) Cloudy Clear [facility] Urine color determinationOrd ered By: Sharif Christianson on 08-31-2024 Color (U) Yellow Yellow [facility] Urine creatinine measurement (mass/volume)Ordered By: Sharif Christianson on 08-31-2024 Creatinine (U) [Mass/Vol] 69.50 mg/dL NO RANGE EST. [facility] Urine leukocyte esterase det ection by dipstickOrdered By: Sharif Christianson on 08-31-2024 Leukocyte esterase Test strip Ql (U) 100 /ul High Negative [facility] Urine pHOrdered By: Sharif brasher on 08-31-2024 pH (U) 7.0 [pH] 5.0 - 8.0 [facility] Urine sediment bacteria coun t by microscopy (number/high power field)Ordered By: Sharif Christianson on 08-31-2024 Bacteria LM.HPF (Urine sed) [#/Area] 4 /[HPF] None Seen [facility] Urine specific gravity measu rementOrdered By: Sharif Christianson on 08-31-2024 Specific gravity (U) [Rel density] 1.015 1.002-1.030 [facility] Urobilinogen Ql (U)Ordered B y: Sharif Christianson on 08-31-2024 Urobilinogen (U) [Mass/Vol] 1 mg/dL High Normal [facility] White blood cell countOrdere d By: Sharif Christianson on 08-31-2024 Urine WBC 25-50 SEEN /hpf 0-5 [facility] 15-CV-Akavcdj DOrdered By: Nataly Christianson on 08-26-2024 Vitamin D 25-Hydroxy 89.2 ng/mL [facility] Comment on above: Vitamin D 25(OH) Sta tus Range Deficiency <20 ng/mL (50nmol/L) Insufficiency 20 - 30 ng/mL (50 - 75 nmol/L) Sufficiency 30 - 100 ng/mL (75 - 250 nmol/L) Toxicity >100 ng/mL (>250 nmol/L) Absolute neutrophil countOrd ered By: Sharif Christianson on 08-26-2024 Neutrophils (Bld) [#/Vol] 2.2 10*3/uL 2.0-7.7 [facility] Albumin to globulin ratioOrd ered By: Sharif Christianson on 08-26-2024 Albumin/Globulin [Mass ratio] 1.0 {ratio} 0.9-2.4 [facility] Basophil percentageOrdered B y: Sharif Christianson on 08-26-2024 Basophils/100 WBC (Bld) 0.3 % 0-1 [facility] Bilirubin, totalOrdered By: Sharif Christianson on 08-26-2024 Bilirubin [Mass/Vol] 0.50 mg/dL 0.20-1.00 [facility] Comment on above: For patients on eltr ombopag therapy, use of Dimension [place] TBIL is not recommended. Blood urea nitrogen (BUN)/cr eatinine ratioOrdered By: Sharif Christianson on 08-26-2024 Urea nitrogen/Creatinine [Mass ratio] 16.0 mg/mg 10-20 [facility] CBC W/Diff, Automatedon SMEAR COMMENT COMMENT Normal [facility] Comment on above: Order Comment: Order Date: 08/26/24Order Info: [id number] - CBCD Result Comment: LYMP HOPENIA. Performed By: #### L 100.0100, L506.1000, L501.9985, L500.4050, L500.4100 ####[facility] [address] [place], [address] Anisocytosis Ql (Bld) 1+ Normal [facility] Comment on above: Order Comment: Order Date: 08/26/24Order Info: [id number] - CBCD Performed By: #### L 100.0100, L506.1000, L501.9985, L500.4050, L500.4100 ####[facility] [address] [place], [address] PLT EST MOD DEC Normal ADEQ [facility] Comment on above: Order Comment: Order Date: 08/26/24Order Info: [id number] - CBCD Performed By: #### L 100.0100, L506.1000, L501.9985, L500.4050, L500.4100 ####[facility] [address] [place], [address] Carbon dioxide measurementOr dered By: Sharif Christianson on 08-26-2024 CO2 [Moles/Vol] 23.0 mmol/L 21.0-32.0 [facility] Chloride measurementOrdered By: Sharif Christianson on 08-26-2024 Chloride [Moles/Vol] 109 mmol/L High 98-107 [facility] Comprehensive Metabolic Prof ilon 08-26-2024 Albumin [Mass/Vol] 3.2 g/dL Normal 3.2-5.0 [facility] Comment on above: Order Comment: Order Date: 08/26/24Order Info: [id number] - CMPOrder Info: [id number] - LIPID Performed By: #### L 100.0100, L506.1000, L501.9985, L500.4050, L500.4100 ####[facility] [address] [place], [address] Albumin/Globulin [Mass ratio] 1.0 {ratio} Normal 0.9-2.4 [facility] Comment on above: Order Comment: Order Date: 08/26/24Order Info: [id number] - CMPOrder Info: [id number] - LIPID Performed By: #### L 100.0100, L506.1000, L501.9985, L500.4050, L500.4100 ####[facility] [address] [place], [address] ALK P 68 U/L Normal 45-117 [facility] Comment on above: Order Comment: Order Date: 08/26/24Order Info: [id number] - CMPOrder Info: [id number] - LIPID Performed By: #### L 100.0100, L506.1000, L501.9985, L500.4050, L500.4100 ####[facility] [address] [place], [address] ALT [Catalytic activity/Vol] 46 U/L Normal 13-56 [facility] Comment on above: Order Comment: Order Date: 08/26/24Order Info: [id number] - CMPOrder Info: [id number] - LIPID Performed By: #### L 100.0100, L506.1000, L501.9985, L500.4050, L500.4100 ####[facility] [address] [place], [address] AST [Catalytic activity/Vol] 29 U/L Normal 15-37 [facility] Comment on above: Order Comment: Order Date: 08/26/24Order Info: [id number] - CMPOrder Info: [id number] - LIPID Performed By: #### L 100.0100, L506.1000, L501.9985, L500.4050, L500.4100 ####[facility] [address] [place], [address] Bilirubin [Mass/Vol] 0.50 mg/dL Normal 0.20-1.00 [facility] Comment on above: Order Comment: Order Date: 08/26/24Order Info: [id number] - CMPOrder Info: [id number] - LIPID Result Comment: For patients on eltrombopag therapy, use of Dimension [place] TBIL is not recommended. Performed By: #### L 100.0100, L506.1000, L501.9985, L500.4050, L500.4100 ####[facility] [address] [place], [address] BUN/CRE 16.0 RATIO Normal 10-20 [facility] Comment on above: Order Comment: Order Date: 08/26/24Order Info: [id number] - CMPOrder Info: [id number] - LIPID Performed By: #### L 100.0100, L506.1000, L501.9985, L500.4050, L500.4100 ####[facility] [address] [place], [address] CA,Total 8.7 mg/dL Normal 8.5-10.1 [facility] Comment on above: Order Comment: Order Date: 08/26/24Order Info: [id number] - CMPOrder Info: [id number] - LIPID Performed By: #### L 100.0100, L506.1000, L501.9985, L500.4050, L500.4100 ####[facility] [address] [place], [address] Chloride [Moles/Vol] 109 mmol/L High 98-107 [facility] Comment on above: Order Comment: Order Date: 08/26/24Order Info: [id number] - CMPOrder Info: [id number] - LIPID Performed By: #### L 100.0100, L506.1000, L501.9985, L500.4050, L500.4100 ####[facility] [address] [place], [address] CO2 [Moles/Vol] 23.0 mmol/L Normal 21.0-32.0 [facility] Comment on above: Order Comment: Order Date: 08/26/24Order Info: [id number] - CMPOrder Info: [id number] - LIPID Performed By: #### L 100.0100, L506.1000, L501.9985, L500.4050, L500.4100 ####[facility] [address] [place], [address] Creatinine [Mass/Vol] 0.75 mg/dL Normal 0.55-1.02 [facility] Comment on above: Order Comment: Order Date: 08/26/24Order Info: [id number] - CMPOrder Info: [id number] - LIPID Result Comment: The validity of the calculated GFR GFRAA in patients over70 years has not been determined. Clinical correlation isessential. Performed By: #### L 100.0100, L506.1000, L501.9985, L500.4050, L500.4100 ####[facility] [address] [place], [address] EST GFR - AA 98 mL/min Normal >60 [facility] Comment on above: Order Comment: Order Date: 08/26/24Order Info: [id number] - CMPOrder Info: [id number] - LIPID Result Comment: Afri can Scottish GFR Calc Performed By: #### L 100.0100, L506.1000, L501.9985, L500.4050, L500.4100 ####[facility] [address] [place], [address] GAP 9 Normal 5-15 [facility] Comment on above: Order Comment: Order Date: 08/26/24Order Info: [id number] - CMPOrder Info: [id number] - LIPID Performed By: #### L 100.0100, L506.1000, L501.9985, L500.4050, L500.4100 ####[facility] [address] [place], [address] GFR/1.73 sq M.predicted among non-blacks MDRD (S/P/Bld) [Vol rate/Area] 81 mL/min/{1.73_m2} Normal >60 [facility] Comment on above: Order Comment: Order Date: 08/26/24Order Info: [id number] - CMPOrder Info: [id number] - LIPID Result Comment: Non- GFR Calc Performed By: #### L 100.0100, L506.1000, L501.9985, L500.4050, L500.4100 ####[facility] [address] [place], [address] Globulin (S) [Mass/Vol] 3.2 g/dL Normal 2.2-4.2 [facility] Comment on above: Order Comment: Order Date: 08/26/24Order Info: [id number] - CMPOrder Info: [id number] - LIPID Performed By: #### L 100.0100, L506.1000, L501.9985, L500.4050, L500.4100 ####[facility] [address] [place], [address] Glucose [Mass/Vol] 158 mg/dL High 74-106 [facility] Comment on above: Order Comment: Order Date: 08/26/24Order Info: [id number] - CMPOrder Info: [id number] - LIPID Result Comment: Fast ing Glucose result greater than or equal to 126 mg/dLsuggests DIABETES MELLITUS per A.D.A. criteria. Performed By: #### L 100.0100, L506.1000, L501.9985, L500.4050, L500.4100 ####[facility] [address], [address] Potassium [Moles/Vol] 4.0 mmol/L Normal 3.5-5.1 [facility] Comment on above: Order Comment: Order Date: 08/26/24Order Info: [id number] - CMPOrder Info: [id number] - LIPID Performed By: #### L 100.0100, L506.1000, L501.9985, L500.4050, L500.4100 ####[facility] [address] [place], [address] Sodium [Moles/Vol] 141 mmol/L Normal 136-145 [facility] Comment on above: Order Comment: Order Date: 08/26/24Order Info: [id number] - CMPOrder Info: [id number] - LIPID Performed By: #### L 100.0100, L506.1000, L501.9985, L500.4050, L500.4100 ####[facility] [address], [address] T PROT 6.4 g/dL Normal 6.4-8.2 [facility] Comment on above: Order Comment: Order Date: 08/26/24Order Info: [id number] - CMPOrder Info: [id number] - LIPID Performed By: #### L 100.0100, L506.1000, L501.9985, L500.4050, L500.4100 ####[facility] [address] [place], [address] Urea nitrogen [Mass/Vol] 12 mg/dL Normal 7-18 [facility] Comment on above: Order Comment: Order Date: 08/26/24Order Info: [id number] - CMPOrder Info: [id number] - LIPID Performed By: #### L 100.0100, L506.1000, L501.9985, L500.4050, L500.9680 ####[facility] [address] [place], [place], [address] Eosinophil percentageOrdered By: Sharif Christianson on 08-26-2024 Eosinophils/100 WBC (Bld) 1.1 % 0-5 [facility] Erythrocyte distribution wid th (RBC) [Ratio]Ordered By: Sharif Christianson on 08-26-2024 Erythrocyte distribution width (RBC) [Entitic vol] 70.5 fL High 35.1-43.9 [facility] Erythrocyte distribution wid th ratioOrdered By: Sharif Christianson on 08-26-2024 Erythrocyte distribution width (RBC) [Ratio] 21.1 % High 11.6-14.6 [facility] Estimated glomerular filtrat ion rate (GFR) AmericanOrdered By: Sharif Christianson on 08-26-2024 Estimated GFR (MDRD) Amer 98 mL/min >60 [facility] Comment on above: GFR Calc Glomerular filtration rate ( GFR) estimationOrdered By: Sharif Christianson on 08-26-2024 Estimated GFR (MDRD) Non-Af Amer 81 mL/min >60 [facility] Comment on above: Non- GFR Calc Glucose measurementOrdered B y: Sharif Christianson on 08-26-2024 Glucose [Mass/Vol] 158 mg/dL High 74-106 [facility] Comment on above: Fasting Glucose resu lt greater than or equal to 126 mg/dL suggests DIABETES MELLITUS per A.D.A. criteria. Hematocrit Auto (Bld) [Volum e fraction]Ordered By: Sharif Christianson on 08-26-2024 Hematocrit (Bld) [Volume fraction] 28.3 % Low 37-47 [facility] Hemoglobin A1con 08-26-2024 HbA1c (Bld) [Mass fraction] 7.8 % High 3.8-5.6 [facility] Comment on above: Order Comment: Order Date: 08/26/24Order Info: [id number] - A1C Result Comment: Norm al < 5.7 % Prediabetic 5.7 - 6.4 % Diabetic >or= 6.5 % Please note range changes. Performed By: #### L 100.0100, L506.1000, L501.9958, L500.4050, L500.4100 ####[facility] [address] [place], [address] Hemoglobin A1c percentageOrd ered By: Sharif Christianson on 08-26-2024 HbA1c (Bld) [Mass fraction] 7.8 % High 3.8-5.6 [facility] Comment on above: Normal < 5.7 % Predi abetic 5.7 - 6.4 % Diabetic >or= 6.5 % Please note range changes. Hemoglobin measurementOrdere d By: Sharif Christianson on 08-26-2024 Hemoglobin (Bld) [Mass/Vol] 8.8 g/dL Low 12.0-15.0 [facility] High density lipoprotein (HD L) measurementOrdered By: Sharif Christianson on 08-26-2024 Cholesterol in HDL [Mass/Vol] 55 mg/dL >40 [facility] Comment on above: The drugs N-Acetylcy steine and Metamizole may falsely depress this assay. Reference Range HDL <40 mg/dL Low HDL Cholesterol HDL >or= 60 mg/dL High HDL Cholesterol Immature granulocytes/100 WB C Auto (Bld)Ordered By: Sharif Christianson on 08-26-2024 Immature granulocytes/100 WBC (Bld) 1.400 % High 0.0-0.9 [facility] Comment on above: IG% - Immature Granu locytes (promyelocytes, myelocytes and metamyelocytes) > 1% indicates that a LEFT SHIFT is Present. Laboratory - Chemistry and C hemistry - challengeOrdered By: Sharif Christianson on 08-26-2024 AST [Catalytic activity/Vol] 29 U/L 15-37 [facility] Laboratory - Hematology and Cell countsOrdered By: Sharif Christianson on 08-26-2024 Anisocytosis Ql (Bld) 1+ [facility] Lipid Profileon 08-26-2024 Cholesterol [Mass/Vol] 89 mg/dL Normal 200 [facility] Comment on above: Order Comment: Order Date: 08/26/24Order Info: [id number] - CMPOrder Info: [id number] - LIPID Result Comment: <200 mg/dL Desirable 200-240 mg/dL Borderline >240 mg/dL High Risk Performed By: #### L 100.0100, L506.1000, L501.9985, L500.4050, L500.4100 ####[facility] [address] [place], [address] Cholesterol in HDL [Mass/Vol] 55 mg/dL Normal [facility] Comment on above: Order Comment: Order Date: 08/26/24Order Info: [id number] - CMPOrder Info: [id number] - LIPID Result Comment: The drugs N-Acetylcysteine and Metamizole may falselydepress this assay. Reference Range HDL <40 mg/dL Low HDL Cholesterol HDL >or= 60 mg/dL High HDL Cholesterol Performed By: #### L 100.0100, L506.1000, L501.9985, L500.4050, L500.4100 ####[facility] [address] [place], [address] Cholesterol in LDL [Mass/Vol] 16 mg/dL Normal 0-130 [facility] Comment on above: Order Comment: Order Date: 08/26/24Order Info: [id number] - CMPOrder Info: [id number] - LIPID Performed By: #### L 100.0100, L506.1000, L501.9985, L500.4050, L500.4100 ####[facility] [address] [place], [address] Cholesterol in VLDL [Mass/Vol] 18 mg/dL Normal 5-40 [facility] Comment on above: Order Comment: Order Date: 08/26/24Order Info: [id number] - CMPOrder Info: [id number] - LIPID Performed By: #### L 100.0100, L506.1000, L501.9985, L500.4050, L500.4100 ####[facility] [address] [place], [address] Triglyceride [Mass/Vol] 89 mg/dL Normal [facility] Comment on above: Order Comment: Order Date: 08/26/24Order Info: [id number] - CMPOrder Info: [id number] - LIPID Result Comment: The drugs N-Acetylcysteine and Metamizole may falselydepress this assay.Serum Triglycerides Reference Interval Normal <150 mg/dL Borderline high 150 - 199 mg/dL High 200 - 499 mg/dL Very High > or = 500 mg/dL Performed By: #### L 100.0100, L506.1000, L501.9985, L500.4050, L500.4100 ####[facility] [address] [place], [address] Low density lipoprotein (LDL ) cholesterol measurementOrdered By: Sharif Christianson on 08-26-2024 Cholesterol in LDL [Mass/Vol] 16 mg/dL 0-130 [facility] Lymphocytes Auto (Unsp spec) [#/Vol]Ordered By: Sharif Christianson on 08-26-2024 Lymphocytes (Bld) [#/Vol] 0.57 10*3/uL Low 0.83-4.5 1 [facility] Lymphocytes/100 WBC Auto (Un sp spec)Ordered By: Sharif Christianson on 08-26-2024 Lymphocytes/100 WBC (Bld) 16.2 % Low 19-41 [facility] MCV (mean corpuscular volume ) determinationOrdered By: Sharif Christianson on 08-26-2024 MCV (RBC) [Entitic vol] 95.9 fL 81-99 [facility] Manual differential comment Kuldip (Bld) [Interp]Ordered By: Sharif Christianson on 08-26-2024 Differential Comment COMMENT [facility] Comment on above: LYMPHOPENIA. Mean corpuscular hemoglobin (MCH) determinationOrdered By: Sharif Christianson on 08-26-2024 MCH (RBC) [Entitic mass] 29.8 pg 27.0-32.0 [facility] Mean corpuscular hemoglobin concentration (MCHC) determinationOrdered By: Sharif Christianson on 08-26-2024 MCHC (RBC) [Mass/Vol] 31.1 g/dL Low 32-36 [facility] Mean platelet volume determi nationOrdered By: Sharif Christianson on 08-26-2024 Platelet mean volume (Bld) [Entitic vol] 10.4 fL 6.2-12.0 [facility] Monocyte percentageOrdered B y: Sharif Christianson on 08-26-2024 Monocytes/100 WBC (Bld) 19.9 % High 0-10 [facility] Neutrophil percentageOrdered By: Sharif Christianson on 08-26-2024 Neutrophils/100 WBC (Bld) 61.1 % 47-70 [facility] Nucleated red blood cell per centageOrdered By: Sharif Christianson on 08-26-2024 Nucleated RBC/100 WBC (Bld) [Ratio] 0 % 0-5 [facility] Platelet countOrdered By: Yessenia Christianson on 08-26-2024 Platelets (Bld) [#/Vol] 81 10*3/uL Low 150-450 [facility] Platelets LM Ql (Bld)Ordered By: Sharif Christianson on 08-26-2024 Platelet Estimate MOD DEC ADEQ [facility] Potassium measurementOrdered By: Sharif Christianson on 08-26-2024 Potassium [Moles/Vol] 4.0 mmol/L 3.5-5.1 [facility] RBC Auto (Bld) [#/Vol]Ordere d By: Sharif Christianson on 08-26-2024 RBC (Bld) [#/Vol] 2.95 10*6/uL Low 4.2-5.4 [facility] Serum anion gap measurementO rdered By: Sharif Chirstianson on 08-26-2024 Anion gap [Moles/Vol] 9 mmol/L 5-15 [facility] Serum globulin measurementOr dered By: Sharif Christianson on 08-26-2024 Globulin (S) [Mass/Vol] 3.2 g/dL 2.2-4.2 [facility] Serum or plasma alanine amezquita otransferase (ALT) measurementOrdered By: Sharif Christianson on 08-26-2024 ALT [Catalytic activity/Vol] 46 U/L 13-56 [facility] Serum or plasma albumin joaquin urement (mass/volume)Ordered By: Sharif Christianson on 08-26-2024 Albumin [Mass/Vol] 3.2 g/dL 3.2-5.0 [facility] Serum or plasma alkaline gumaro sphatase measurementOrdered By: Sharif Christianson on 08-26-2024 ALP [Catalytic activity/Vol] 68 U/L 45-117 [facility] Serum or plasma calcium joaquin urement (mass/volume)Ordered By: Sharif Christianson on 08-26-2024 Calcium [Mass/Vol] 8.7 mg/dL 8.5-10.1 [facility] Serum or plasma cholesterol measurement (mass/volume)Ordered By: Sharif Christianson on 08-26-2024 Cholesterol [Mass/Vol] 89 mg/dL <200 [facility] Comment on above: <200 mg/dL Desirable 200-240 mg/dL Borderline >240 mg/dL High Risk Serum or plasma creatinine m easurement (mass/volume)Ordered By: Sharif Christianson on 08-26-2024 Creatinine [Mass/Vol] 0.75 mg/dL 0.55-1.02 [facility] Comment on above: The validity of the calculated GFR & GFRAA in patients over 70 years has not been determined. Clinical correlation is essential. Serum or plasma urea nitroge n measurement (mass/volume)Ordered By: Sharif Christianson on 08-26-2024 Urea nitrogen [Mass/Vol] 12 mg/dL 7-18 [facility] Sodium levelOrdered By: Sharif Christianson on 08-26-2024 Sodium [Moles/Vol] 141 mmol/L 136-145 [facility] Total proteinOrdered By: Link Christianson on 08-26-2024 Protein [Mass/Vol] 6.4 g/dL 6.4-8.2 [facility] Triglycerides measurementOrd ered By: Sharif Christianson on 08-26-2024 Triglyceride [Mass/Vol] 89 mg/dL <199 [facility] Comment on above: The drugs N-Acetylcy steine and Metamizole may falsely depress this assay.Serum Triglycerides Reference Interval Normal <150 mg/dL Borderline high 150 - 199 mg/dL High 200 - 499 mg/dL Very High > or = 500 mg/dL Very low density lipoprotein (VLDL) cholesterol measurementOrdered By: Sharif Christianson on 08-26-2024 VLDL Cholesterol 18 mg/dL 5-40 [facility] Vitamin D,25 Hydroxyon 08-26 Vitamin D 25-OH 89.2 ng/mL Normal [facility] Comment on above: Order Comment: Order Date: 08/26/24Order Info: [id number] - [id number] Result Comment: Sariah min D 25(OH) Status Range Deficiency <20 ng/mL (50nmol/L) Insufficiency 20 - 30 ng/mL (50 - 75 nmol/L) Sufficiency 30 - 100 ng/mL (75 - 250 nmol/L) Toxicity >100 ng/mL (>250 nmol/L) Performed By: #### L 100.0100, L506.1000, L501.9985, L500.4050, L500.4100 ####[facility] [address] [place], [place], [address] White blood cell (WBC) count Ordered By: Sharif Christianson on 08-26-2024 WBC (Bld) [#/Vol] 3.5 10*3/uL Low 4.4-11.0 [facility] CBC W/Diff, Automatedon PATH REV Reviewed Normal [facility] Comment on above: Result Comment: Panc ytopenia.Leukopenia and neutropenia.Normocytic anemia.MILD Thrombocytopenia.Clinical correlation necessary.Gamal Murillo M.D. 08/24/24 AMENDED REPORT 08/24/24 1352 PATH REV previously reported as: Jeanette hough Performed By: #### L 100.0100 ####[facility] [address] [place], [place], [address] Pathologist review Kuldip (Unsp spec) [Interp]Ordered By: Shannan Waldrop on 08-23-2024 Differential Pathologist's Review Reviewed [facility] Comment on above: Previous reported re sult: December gianluca Edited by: MARK on 08/24/24:1352Pancytopenia.Leukopenia and neutropenia.Normocytic anemia.MILD Thrombocytopenia.Clinical correlation necessary.Gamal Murillo M.D. 08/24/24 AMENDED REPORT 08/24/24 1352 PATH REV previously reported as: December gianluca Review by pathologistOrdered By: Shannan Waldrop on 08-23-2024 Pathologist review Kuldip (Unsp spec) [Interp] Reviewed [facility] Comment on above: Previous reported re sult: Jeanette hough Edited by: MARK on 08/24/24:1352Pancytopenia.Leukopenia and neutropenia.Normocytic anemia.MILD Thrombocytopenia.Clinical correlation necessary.Gamal Murillo M.D. 08/24/24 AMENDED REPORT 08/24/24 1352 PATH REV previously reported as: Jeanette hough CBC W/Diff, Automatedon 12-3 0-2023 Absolute Lymph 0.69 X10 3/uL Low 0.83-4.51 [facility] Comment on above: Performed By: #### L 100.0100 ####[facility] [address] [place], [address] Absolute Neut 3.0 X10 3/uL Normal 2.0-7.7 [facility] Comment on above: Performed By: #### L 100.0100 ####[facility] [address] [place], [address] Basophils/100 WBC (Bld) 0.9 % Normal 0-1 [facility] Comment on above: Performed By: #### L 100.0100 ####[facility] [address] [place], [address] Eosinophils/100 WBC (Bld) 0.0 % Normal 0-5 [facility] Comment on above: Performed By: #### L 100.0100 ####[facility] [address] [place], [address] Erythrocyte distribution width (RBC) [Ratio] 19.2 % High 11.6-14.6 [facility] Comment on above: Performed By: #### L 100.0100 ####[facility] [address] [place], [address] Hematocrit (Bld) [Volume fraction] 28.4 % Low 37-47 [facility] Comment on above: Performed By: #### L 100.0100 ####[facility] [address] [place], [address] Hemoglobin (Bld) [Mass/Vol] 8.9 g/dL Low 12.0-15.0 [facility] Comment on above: Performed By: #### L 100.0100 ####[facility] [address] [place], [address] IG% 4.700 High 0.0-0.9 [facility] Comment on above: Result Comment: IG% - Immature Granulocytes (promyelocytes, myelocytes andmetamyelocytes) > 1% indicates that a LEFT SHIFT is Present. Performed By: #### L 100.0100 ####[facility] [address] [place], [address] Lymphocytes/100 WBC (Bld) 15.4 % Low 19-41 [facility] Comment on above: Performed By: #### L 100.0100 ####[facility] [address] [place], [address] MCH (RBC) [Entitic mass] 29.4 pg Normal 27.0-32.0 [facility] Comment on above: Performed By: #### L 100.0100 ####[facility] [address] [place], [address] MCHC (RBC) [Mass/Vol] 31.3 g/dL Low 32-36 [facility] Comment on above: Performed By: #### L 100.0100 ####[facility] [address] [place], [address] MCV (RBC) [Entitic vol] 93.7 fL Normal 81-99 [facility] Comment on above: Performed By: #### L 100.0100 ####[facility] [address] [place], [address] Monocytes/100 WBC (Bld) 12.5 % High 0-10 [facility] Comment on above: Performed By: #### L 100.0100 ####[facility] [address] [place], [address] Neutrophils/100 WBC (Bld) 66.5 % Normal 47-70 [facility] Comment on above: Performed By: #### L 100.0100 ####[facility] [address] [place], [address] Nucleated RBC (Bld) [#/Vol] 0.7 10*3/uL Normal 0-5 [facility] Comment on above: Performed By: #### L 100.0100 ####[facility] [address] [place], [address] Platelet mean volume (Bld) [Entitic vol] 8.3 fL Normal 6.2-12.0 [facility] Comment on above: Performed By: #### L 100.0100 ####[facility] [address] [place], [address] Platelets (Bld) [#/Vol] 280 10*3/uL Normal 150-450 [facility] Comment on above: Performed By: #### L 100.0100 ####[facility] [address] [place], [address] RBC (Bld) [#/Vol] 3.03 10*6/uL Low 4.2-5.4 [facility] Comment on above: Performed By: #### L 100.0100 ####[facility] [address] [place], [address] RDW SD 64.8 fl High 35.1-43.9 [facility] Comment on above: Performed By: #### L 100.0100 ####[facility] [address] [place], [address] WBC (Bld) [#/Vol] 4.5 10*3/uL Normal 4.4-11.0 [facility] Comment on above: Performed By: #### L 100.0100 ####[facility] [address] [place], [place], [address] CBC W/Diff, Automatedon 07-19 PATH REV Reviewed Normal [facility] Comment on above: Result Comment: Neut rophilic leukocytosis with left shiftNormocytic anemia.Clinical correlation necessary.Gamal Murillo M.D. 08/10/24Pathologist comment added AMENDED REPORT 08/10/24 1101 PATH REV previously reported as: December Performed By: #### L 501.5200, L500.4050, L100.0100 ####[facility] [address] [place], [place], [address] Blood band neutrophil count as percentage of total leukocytesOrdered By: Shannan Waldrop on 08-09-2024 Band form neutrophils/100 WBC (Bld) 3 % 0-5 [facility] Blood eosinophils/100 leukoc ytesOrdered By: Shannan Waldrop on 08-09-2024 Eosinophils/100 WBC (Bld) 3 % 0-5 [facility] Blood lymphocytes/100 leukoc ytesOrdered By: Shannan Waldrop on 08-09-2024 Lymphocytes/100 WBC (Bld) 8 % Low 19-41 [facility] Blood monocytes/100 leukocyt esOrdered By: Shannan Waldrop on 08-09-2024 Monocytes/100 WBC (Bld) 10 % 0-10 [facility] Blood segmented neutrophils/ 100 leukocytesOrdered By: Shannan Waldrop on 08-09-2024 Segmented neutrophils/100 WBC (Bld) 76 % High 47-70 [facility] Cells counted Molgen (Bld/Ti ss) [#]Ordered By: Shannan Waldrop on 08-09-2024 Differential Total Cells Counted 100 MANUAL DIFF [facility] Comprehensive Metabolic Prof ilon 08-09-2024 Albumin [Mass/Vol] 3.1 g/dL Low 3.2-5.0 [facility] Comment on above: Performed By: #### L 501.5200, L500.4050, L100.0100 ####[facility] [address], [address] Albumin/Globulin [Mass ratio] 1.0 {ratio} Normal 0.9-2.4 [facility] Comment on above: Performed By: #### L 501.5200, L500.4050, L100.0100 ####[facility] [address] [place], [address] ALK P 106 U/L Normal 45-117 [facility] Comment on above: Performed By: #### L 501.5200, L500.4050, L100.0100 ####[facility] [address] [place], [address] ALT [Catalytic activity/Vol] 37 U/L Normal 13-56 [facility] Comment on above: Performed By: #### L 501.5200, L500.4050, L100.0100 ####[facility] [address] [place], [address] AST [Catalytic activity/Vol] 23 U/L Normal 15-37 [facility] Comment on above: Performed By: #### L 501.5200, L500.4050, L100.0100 ####[facility] [address] [place], [address] Bilirubin [Mass/Vol] 0.40 mg/dL Normal 0.20-1.00 [facility] Comment on above: Result Comment: For patients on eltrombopag therapy, use of Dimension [place] TBIL is not recommended. Performed By: #### L 501.5200, L500.4050, L100.0100 ####[facility] [address] [place], [address] BUN/CRE 12.8 RATIO Normal 10-20 [facility] Comment on above: Performed By: #### L 501.5200, L500.4050, L100.0100 ####[facility] [address] [place], [address] CA,Total 8.6 mg/dL Normal 8.5-10.1 [facility] Comment on above: Performed By: #### L 501.5200, L500.4050, L100.0100 ####[facility] [address] [place], [address] Chloride [Moles/Vol] 107 mmol/L Normal 98-107 [facility] Comment on above: Performed By: #### L 501.5200, L500.4050, L100.0100 ####[facility] [address] [place], [address] CO2 [Moles/Vol] 24.0 mmol/L Normal 21.0-32.0 [facility] Comment on above: Performed By: #### L 501.5200, L500.4050, L100.0100 ####[facility] [address] [place], [address] Creatinine [Mass/Vol] 0.70 mg/dL Normal 0.55-1.02 [facility] Comment on above: Result Comment: The validity of the calculated GFR GFRAA in patients over70 years has not been determined. Clinical correlation isessential. Performed By: #### L 501.5200, L500.4050, L100.0100 ####[facility] [address] [place], [address] ECRCL 67.71 ml/min Normal [facility] Comment on above: Performed By: #### L 501.5200, L500.4050, L100.0100 ####[facility] [address] [place], [address] EST GFR - AA 106 mL/min Normal >60 [facility] Comment on above: Result Comment: Afri can Scottish GFR Calc Performed By: #### L 501.5200, L500.4050, L100.0100 ####[facility] [address] [place], [address] GAP 7 Normal 5-15 [facility] Comment on above: Performed By: #### L 501.5200, L500.4050, L100.0100 ####[facility] [address] [place], [address] GFR/1.73 sq M.predicted among non-blacks MDRD (S/P/Bld) [Vol rate/Area] 88 mL/min/{1.73_m2} Normal >60 [facility] Comment on above: Result Comment: Non- GFR Calc Performed By: #### L 501.5200, L500.4050, L100.0100 ####[facility] [address] [place], [address] Globulin (S) [Mass/Vol] 3.2 g/dL Normal 2.2-4.2 [facility] Comment on above: Performed By: #### L 501.5200, L500.4050, L100.0100 ####[facility] [address] [place], [address] Glucose [Mass/Vol] 209 mg/dL High 74-106 [facility] Comment on above: Result Comment: Gluc ose result greater than or equal to 200 mg/dLsuggests DIABETES MELLITUS per A.D.A. criteria. Performed By: #### L 501.5200, L500.4050, L100.0100 ####[facility] [address] [place], [address] Potassium [Moles/Vol] 3.8 mmol/L Normal 3.5-5.1 [facility] Comment on above: Performed By: #### L 501.5200, L500.4050, L100.0100 ####[facility] [address] [place], [address] Sodium [Moles/Vol] 138 mmol/L Normal 136-145 [facility] Comment on above: Performed By: #### L 501.5200, L500.4050, L100.0100 ####[facility] [address] [place], [address] T PROT 6.3 g/dL Low 6.4-8.2 [facility] Comment on above: Performed By: #### L 501.5200, L500.4050, L100.0100 ####[facility] [address] [place], [address] Urea nitrogen [Mass/Vol] 9 mg/dL Normal 7-18 [facility] Comment on above: Performed By: #### L 501.5200, L500.4050, L100.0100 ####[facility] [address] [place], [address] Magnesiumon 08-09-2024 Magnesium [Mass/Vol] 1.5 mg/dL Low 1.6-2.6 [facility] Comment on above: Performed By: #### L 501.5200, L500.4050, L100.0100 ####[facility] [address] [place], [address] Oncology Visit Reporton 07-19 Oncology Visit Report Normal [facility] Segmented neutrophils/100 WB C (Bld)Ordered By: Shannan Waldrop on 08-09-2024 Neutrophils/100 WBC (Bld) 76 % High 47-70 [facility] Total cell countOrdered By: Shannan Waldrop on 08-09-2024 Cells counted Molgen (Bld/Tiss) [#] 100 MANUAL DIFF [facility] CBC W/Diff, Automatedon 07-18 PATH REV Reviewed Normal [facility] Comment on above: Result Comment: Leuk openia and neutropenia.Normocytic anemia.Clinical correlation necessary.Gamal Murillo M.D. 07/28/24 AMENDED REPORT 07/28/24 1356 PATH REV previously reported as: December Performed By: #### L 100.0100 ####[facility] [address] [place], [place], [address] Blood metamyelocytes/100 nabeel kocytesOrdered By: Shannan Bullus on 07-27-2024 Metamyelocytes/100 WBC (Bld) 3 % High 0-1 [facility] Blood promyelocytes/100 leuk ocytesOrdered By: Shannan Lowerykarus on 07-27-2024 Promyelocytes/100 WBC (Bld) 2 % High 0-0 [facility] Erythrocyte morphology asses smentOrdered By: Shannan Waldrop on 07-27-2024 RBC morphology finding Nom (Bld) NORM C+C NORMAL NORM C&C [facility] Myelocyte %Ordered By: Ines Waldrop on 07-27-2024 Myelocytes/100 WBC (Bld) 6 % High 0-0 [facility] Oncology Visit Reporton 07-18 Oncology Visit Report Normal [facility] Promyelocytes/100 WBC (Bld)O rdered By: Shannan Bullus on 07-27-2024 Promyelocytes % 2 % High 0-0 [facility] RBC morphology finding Nom ( Bld)Ordered By: Shannan Waldrop on 07-27-2024 Red Blood Cell Morphology NORM C+C NORMAL NORM C&C [facility] Venous Duplex US - Jose Extre mon 07-27-2024 Venous Duplex US - Jose Extrem Normal [facility] CBC W/Diff, Automatedon Absolute Lymph 0.79 X10 3/uL Low 0.83-4.51 [facility] Comment on above: Performed By: #### L 100.0100 ####[facility] [address] [place], [place], [address] Absolute Neut 3.0 X10 3/uL Normal 2.0-7.7 [facility] Comment on above: Performed By: #### L 100.0100 ####[facility] [address], [address] Basophils/100 WBC (Bld) 0.4 % Normal 0-1 [facility] Comment on above: Performed By: #### L 100.0100 ####[facility] [address] [place], [address] Eosinophils/100 WBC (Bld) 1.3 % Normal 0-5 [facility] Comment on above: Performed By: #### L 100.0100 ####[facility] [address] [place], [address] Erythrocyte distribution width (RBC) [Ratio] 17.2 % High 11.6-14.6 [facility] Comment on above: Performed By: #### L 100.0100 ####[facility] [address] [place], [address] Hematocrit (Bld) [Volume fraction] 32.5 % Low 37-47 [facility] Comment on above: Performed By: #### L 100.0100 ####[facility] [address] [place], [address] Hemoglobin (Bld) [Mass/Vol] 10.2 g/dL Low 12.0-15.0 [facility] Comment on above: Performed By: #### L 100.0100 ####[facility] [address] [place], [address] IG% 0.200 Normal 0.0-0.9 [facility] Comment on above: Result Comment: IG% - Immature Granulocytes (promyelocytes, myelocytes andmetamyelocytes) > 1% indicates that a LEFT SHIFT is Present. Performed By: #### L 100.0100 ####[facility] [address] [place], [address] Lymphocytes/100 WBC (Bld) 17.0 % Low 19-41 [facility] Comment on above: Performed By: #### L 100.0100 ####[facility] [address] [place], [address] MCH (RBC) [Entitic mass] 29.1 pg Normal 27.0-32.0 [facility] Comment on above: Performed By: #### L 100.0100 ####[facility] [address] [place], [address] MCHC (RBC) [Mass/Vol] 31.4 g/dL Low 32-36 [facility] Comment on above: Performed By: #### L 100.0100 ####[facility] [address] [place], [address] MCV (RBC) [Entitic vol] 92.6 fL Normal 81-99 [facility] Comment on above: Performed By: #### L 100.0100 ####[facility] [address] [place], [address] Monocytes/100 WBC (Bld) 15.7 % High 0-10 [facility] Comment on above: Performed By: #### L 100.0100 ####[facility] [address] [place], [address] Neutrophils/100 WBC (Bld) 65.4 % Normal 47-70 [facility] Comment on above: Performed By: #### L 100.0100 ####[facility] [address] [place], [address] Nucleated RBC (Bld) [#/Vol] 0 10*3/uL Normal 0-5 [facility] Comment on above: Performed By: #### L 100.0100 ####[facility] [address] [place], [address] Platelet mean volume (Bld) [Entitic vol] 8.7 fL Normal 6.2-12.0 [facility] Comment on above: Performed By: #### L 100.0100 ####[facility] [address] [place], [address] Platelets (Bld) [#/Vol] 311 10*3/uL Normal 150-450 [facility] Comment on above: Performed By: #### L 100.0100 ####[facility] [address] [place], [address] RBC (Bld) [#/Vol] 3.51 10*6/uL Low 4.2-5.4 [facility] Comment on above: Performed By: #### L 100.0100 ####[facility] [address] [place], [address] RDW SD 57.8 fl High 35.1-43.9 [facility] Comment on above: Performed By: #### L 100.0100 ####[facility] [address] [place], [address] WBC (Bld) [#/Vol] 4.7 10*3/uL Normal 4.4-11.0 [facility] Comment on above: Performed By: #### L 100.0100 ####[facility] [address] [place], [address] Absolute Neut Normal 2.0-7.7 [facility] Comment on above: Result Comment: DUPL ICATED TESTS Performed By: #### L 100.0100 ####[facility] [address] [place], [address] HCT Normal 37-47 [facility] Comment on above: Result Comment: DUPL ICATED TESTS Performed By: #### L 100.0100 ####[facility] [address] [place], [address] HGB Normal 12.0-15.0 [facility] Comment on above: Result Comment: DUPL ICATED TESTS Performed By: #### L 100.0100 ####[facility] [address] [place], [address] MCH Normal 27.0-32.0 [facility] Comment on above: Result Comment: DUPL ICATED TESTS Performed By: #### L 100.0100 ####[facility] [address] [place], [address] MCHC Normal 32-36 [facility] Comment on above: Result Comment: DUPL ICATED TESTS Performed By: #### L 100.0100 ####[facility] [address] [place], [address] MCV Normal 81-99 [facility] Comment on above: Result Comment: DUPL ICATED TESTS Performed By: #### L 100.0100 ####[facility] [address] [place], [address] NEUT% Normal 47-70 [facility] Comment on above: Result Comment: DUPL ICATED TESTS Performed By: #### L 100.0100 ####[facility] [address] [place], [address] PLT Normal 150-450 [facility] Comment on above: Result Comment: DUPL ICATED TESTS Performed By: #### L 100.0100 ####[facility] [address] [place], [address] RBC Normal 4.2-5.4 [facility] Comment on above: Result Comment: DUPL ICATED TESTS Performed By: #### L 100.0100 ####[facility] [address] [place], [address] RDW CV Normal 11.6-14.6 [facility] Comment on above: Result Comment: DUPL ICATED TESTS Performed By: #### L 100.0100 ####[facility] [address] [place], [address] RDW SD Normal 35.1-43.9 [facility] Comment on above: Result Comment: DUPL ICATED TESTS Performed By: #### L 100.0100 ####[facility] [address] [place], [address] WBC Normal 4.4-11.0 [facility] Comment on above: Result Comment: DUPL ICATED TESTS Performed By: #### L 100.0100 ####[facility] [address] [place], [address] Oncology Visit Reporton 120 Oncology Visit Report Normal [facility] Blood schistocyte detection by light microscopyOrdered By: Shannan Waldrop on 07-12-2024 Schistocytes RARE Normal [facility] Comment on above: Performed By: #### L 100.0100 ####[facility] [address] [place], [address] Schistocytes LM Ql (Bld) RARE [facility] CBC W/Diff, Automatedon 06-19 Anisocytosis Ql (Bld) 1+ Normal [facility] Comment on above: Performed By: #### L 100.0100 ####[facility] [address] [place], [address] OVALOCYTE 2+ Normal [facility] Comment on above: Performed By: #### L 100.0100 ####[facility] [address] [place], [address] POLYCHROMASIA 1+ Normal [facility] Comment on above: Performed By: #### L 100.0100 ####[facility] [address] [place], [address] TEAR DROP 1+ Normal [facility] Comment on above: Performed By: #### L 100.0100 ####[facility] [address] [place], [address] PLT EST ADEQUATE Normal ADEQ [facility] Comment on above: Performed By: #### L 100.0100 ####[facility] [address] [place], [address] SMEAR COMMENT SCANNED Normal [facility] Comment on above: Performed By: #### L 100.0100 ####[facility] [address] [place], [address] Macrocytes detectionOrdered By: Shannan Waldrop on 07-12-2024 Macrocytosis 1+ Normal [facility] Comment on above: Performed By: #### L 100.0100 ####[facility] [address] [place], [address] Macrocytes Ql (Bld) 1+ [facility] Oncology Visit Reporton 06-19 Oncology Visit Report Normal [facility] CBC W/Diff, Automatedon 06-18 Absolute Lymph 0.77 X10 3/uL Low 0.83-4.51 [facility] Comment on above: Performed By: #### L 501.5200, L100.0100, L500.4050 ####[facility] [address] [place], [address] Absolute Neut 4.1 X10 3/uL Normal 2.0-7.7 [facility] Comment on above: Performed By: #### L 501.5200, L100.0100, L500.4050 ####[facility] [address] [place], [address] Basophils/100 WBC (Bld) 0.7 % Normal 0-1 [facility] Comment on above: Performed By: #### L 501.5200, L100.0100, L500.4050 ####[facility] [address] [place], [address] Eosinophils/100 WBC (Bld) 0.9 % Normal 0-5 [facility] Comment on above: Performed By: #### L 501.5200, L100.0100, L500.4050 ####[facility] [address] [place], [address] Erythrocyte distribution width (RBC) [Ratio] 17.0 % High 11.6-14.6 [facility] Comment on above: Performed By: #### L 501.5200, L100.0100, L500.4050 ####[facility] [address] [place], [address] Hematocrit (Bld) [Volume fraction] 35.5 % Low 37-47 [facility] Comment on above: Performed By: #### L 501.5200, L100.0100, L500.4050 ####[facility] [address] [place], [address] Hemoglobin (Bld) [Mass/Vol] 11.2 g/dL Low 12.0-15.0 [facility] Comment on above: Performed By: #### L 501.5200, L100.0100, L500.4050 ####[facility] [address] [place], [address] IG% 0.500 Normal 0.0-0.9 [facility] Comment on above: Result Comment: IG% - Immature Granulocytes (promyelocytes, myelocytes andmetamyelocytes) > 1% indicates that a LEFT SHIFT is Present. Performed By: #### L 501.5200, L100.0100, L500.4050 ####[facility] [address] [place], [address] Lymphocytes/100 WBC (Bld) 13.4 % Low 19-41 [facility] Comment on above: Performed By: #### L 501.5200, L100.0100, L500.4050 ####[facility] [facility] [address] [place], [address] MCH (RBC) [Entitic mass] 29.1 pg Normal 27.0-32.0 [facility] Comment on above: Performed By: #### L 501.5200, L100.0100, [id number] ####[facility] [address] [place], [address] MCHC (RBC) [Mass/Vol] 31.5 g/dL Low 32-36 [facility] Comment on above: Performed By: #### L 501.5200, L100.0100, [id number] ####[facility] [address] [place], [address] MCV (RBC) [Entitic vol] 92.2 fL Normal 81-99 [facility] Comment on above: Performed By: #### L 501.5200, L100.0100, [id number] ####[facility] [address] [place], [address] Monocytes/100 WBC (Bld) 13.6 % High 0-10 [facility] Comment on above: Performed By: #### L 501.5200, L100.0100, [id number] ####[facility] [address] [place], [address] Neutrophils/100 WBC (Bld) 70.9 % High 47-70 [facility] Comment on above: Performed By: #### L 501.5200, L100.0100, [id number] ####[facility] [address] [place], [address] Nucleated RBC (Bld) [#/Vol] 0 10*3/uL Normal 0-5 [facility] Comment on above: Performed By: #### L 501.5200, L100.0100, [id number] ####[facility] [address] [place], [address] Platelet mean volume (Bld) [Entitic vol] 8.4 fL Normal 6.2-12.0 [facility] Comment on above: Performed By: #### L 501.5200, L100.0100, [id number] ####[facility] [address] [place], [address] Platelets (Bld) [#/Vol] 268 10*3/uL Normal 150-450 [facility] Comment on above: Performed By: #### L 501.5200, L100.0100, [id number] ####[facility] [address] [place], [address] RBC (Bld) [#/Vol] 3.85 10*6/uL Low 4.2-5.4 [facility] Comment on above: Performed By: #### L 501.5200, L100.0100, [id number] ####[facility] [address] [place], [address] RDW SD 56.9 fl High 35.1-43.9 [facility] Comment on above: Performed By: #### L 501.5200, L100.0100, [id number] ####[facility] [address] [place], [address] WBC (Bld) [#/Vol] 5.8 10*3/uL Normal 4.4-11.0 [facility] Comment on above: Performed By: #### L 501.5200, L100.0100, [id number] ####[facility] [address] [place], [address] Comprehensive Metabolic Prof [facility] 07-05-2024 Albumin [Mass/Vol] 3.5 g/dL Normal 3.2-5.0 [facility] Comment on above: Performed By: #### L 501.5200, L100.0100, [id number] ####[facility] [address] [place], [address] Albumin/Globulin [Mass ratio] 0.9 {ratio} Normal 0.9-2.4 [facility] Comment on above: Performed By: #### L 501.5200, L100.0100, [id number] ####[facility] [address] [place], [address] ALK P 73 U/L Normal 45-117 [facility] Comment on above: Performed By: #### L 501.5200, L100.0100, [id number] ####[facility] [address] [place], [address] ALT [Catalytic activity/Vol] 16 U/L Normal 13-56 [facility] Comment on above: Performed By: #### L 501.5200, L100.0100, [id number] ####[facility] [address] [place], [address] AST [Catalytic activity/Vol] 16 U/L Normal 15-37 [facility] Comment on above: Performed By: #### L 501.5200, L100.0100, [id number] ####[facility] [address] [place], [address] Bilirubin [Mass/Vol] 0.50 mg/dL Normal 0.20-1.00 [facility] Comment on above: Result Comment: For patients on eltrombopag therapy, use of Dimension [place] TBIL is not recommended. Performed By: #### L 501.5200, L100.0100, [id number] ####[facility] [address] [place], [address] BUN/CRE 12.3 RATIO Normal 10-20 [facility] Comment on above: Performed By: #### L 501.5200, L100.0100, [id number] ####[facility] [address] [place], [address] CA,Total 9.2 mg/dL Normal 8.5-10.1 [facility] Comment on above: Performed By: #### L 501.5200, L100.0100, [id number] ####[facility] [address] [place], [address] Chloride [Moles/Vol] 104 mmol/L Normal 98-107 [facility] Comment on above: Performed By: #### L 501.5200, L100.0100, [id number] ####[facility] [address] [place], [address] CO2 [Moles/Vol] 24.0 mmol/L Normal 21.0-32.0 [facility] Comment on above: Performed By: #### L 501.5200, L100.0100, [id number] ####[facility] [address] [place], [address] Creatinine [Mass/Vol] 0.82 mg/dL Normal 0.55-1.02 [facility] Comment on above: Result Comment: The validity of the calculated GFR GFRAA in patients over70 years has not been determined. Clinical correlation isessential. Performed By: #### L 501.5200, L100.0100, [id number] ####[facility] [address] [place], [address] ECRCL 64.69 ml/min Normal [facility] Comment on above: Performed By: #### L 501.5200, L100.0100, [id number] ####[facility] [address] [place], [address] EST GFR - AA 89 mL/min Normal >60 [facility] Comment on above: Result Comment: Afri can Scottish GFR Calc Performed By: #### L 501.5200, L100.0100, [id number] ####[facility] [address] [place], [address] GAP 12 Normal 5-15 [facility] Comment on above: Performed By: #### L 501.5200, L100.0100, [id number] ####[facility] [address] [place], [address] GFR/1.73 sq M.predicted among non-blacks MDRD (S/P/Bld) [Vol rate/Area] 74 mL/min/{1.73_m2} Normal >60 [facility] Comment on above: Result Comment: Non- GFR Calc Performed By: #### L 501.5200, L100.0100, [id number] ####[facility] [address] [place], [address] Globulin (S) [Mass/Vol] 3.7 g/dL Normal 2.2-4.2 [facility] Comment on above: Performed By: #### L 501.5200, L100.0100, [id number] ####[facility] [address] [place], [address] Glucose [Mass/Vol] 173 mg/dL High 74-106 [facility] Comment on above: Result Comment: Fast ing Glucose result greater than or equal to 126 mg/dLsuggests DIABETES MELLITUS per A.D.A. criteria. Performed By: #### L 501.5200, L100.0100, [id number] ####[facility] [address] [place], [address] Potassium [Moles/Vol] 4.2 mmol/L Normal 3.5-5.1 [facility] Comment on above: Performed By: #### L 501.5200, L100.0100, [id number] ####[facility] [address] [place], [address] Sodium [Moles/Vol] 140 mmol/L Normal 136-145 [facility] Comment on above: Performed By: #### L 501.5200, L100.0100, [id number] ####[facility] [address] [place], [address] T PROT 7.2 g/dL Normal 6.4-8.2 [facility] Comment on above: Performed By: #### L 501.5200, L100.0100, [id number] ####[facility] [address] [place], [address] Urea nitrogen [Mass/Vol] 10 mg/dL Normal 03-04 [facility] Comment on above: Performed By: #### L 501.5200, L100.0100, [id number] ####[facility] [address] [place], [address] Magnesiumon 07-05-2024 Magnesium [Mass/Vol] 1.4 mg/dL Low 1.6-2.6 [facility] Comment on above: Performed By: #### L 501.5200, L100.0100, [id number] ####[facility] [address] [place], [address] Oncology Visit Reporton 06-18 Oncology Visit Report Normal [facility] [id number] DOrdered By: Nataly Christianson on 06-28-2024 Vitamin D 25-Hydroxy 92.5 ng/mL [facility] Comment on above: Vitamin D 25(OH) Sta tus Range Deficiency <20 ng/mL (50nmol/L) Insufficiency 20 - 30 ng/mL (50 - 75 nmol/L) Sufficiency 30 - 100 ng/mL (75 - 250 nmol/L) Toxicity >100 ng/mL (>250 nmol/L) Hemoglobin A1c percentageOrd ered By: Sharif Christianson on 06-28-2024 HbA1c (Bld) [Mass fraction] 7.1 % High 3.8-5.6 [facility] Comment on above: Normal < 5.7 % Predi abetic 5.7 - 6.4 % Diabetic >or= 6.5 % Please note range changes. High density lipoprotein (HD L) measurementOrdered By: Sharif Christianson on 06-28-2024 Cholesterol in HDL [Mass/Vol] 54 mg/dL >40 [facility] Comment on above: The drugs N-Acetylcy steine and Metamizole may falsely depress this assay. Reference Range HDL <40 mg/dL Low HDL Cholesterol HDL >or= 60 mg/dL High HDL Cholesterol High density lipoprotein (HDL) measurement 54 mg/dL >40 [facility] Low density lipoprotein (LDL ) cholesterol measurementOrdered By: Sharif Christianson on 06-28-2024 Cholesterol in LDL [Mass/Vol] 26 mg/dL 0-130 [facility] Low density lipoprotein (LDL) cholesterol measurement 26 mg/dL 0-130 [facility] Serum or plasma cholesterol measurement (mass/volume)Ordered By: Sharif Christianson on 06-28-2024 Cholesterol [Mass/Vol] 108 mg/dL <200 [facility] Comment on above: <200 mg/dL Desirable 200-240 mg/dL Borderline >240 mg/dL High Risk Triglycerides measurementOrd ered By: Sharif Christianson on 06-28-2024 Triglyceride [Mass/Vol] 142 mg/dL <199 [facility] Comment on above: The drugs N-Acetylcy steine and Metamizole may falsely depress this assay.Serum Triglycerides Reference Interval Normal <150 mg/dL Borderline high 150 - 199 mg/dL High 200 - 499 mg/dL Very High > or = 500 mg/dL Very low density lipoprotein (VLDL) cholesterol measurementOrdered By: Sharif Christianson on 06-28-2024 Very low density lipoprotein (VLDL) cholesterol measurement 28 mg/dL 5-40 [facility] VLDL Cholesterol 28 mg/dL 5-40 [facility] Absolute lymphocyte countOrd ered By: Shannan Waldrop on 12-02-2023 Lymphocytes Auto (Unsp spec) [#/Vol] 0.74 10*3/uL 0.83-4.51 [facility] Automated lymphocyte count a s percentage of total leukocytesOrdered By: Shannan Waldrop on 12-02-2023 Lymphocytes/100 WBC Auto (Unsp spec) 14.9 % 19-41 [facility] Basophil percentageOrdered B y: Shannan Waldrop on 12-02-2023 Basophils/100 WBC (Bld) 0.6 % 0-1 [facility] Bilirubin [Mass/Vol] 0.50 mg/dL 0.20-1.00 [facility] Comment on above: For patients on eltr ombopag therapy, use of Dimension [place] TBIL is not recommended. Chloride [Moles/Vol] 106 mmol/L 98-107 [facility] Eosinophils/100 WBC (Bld) 2.8 % 0-5 [facility] Glucose [Mass/Vol] 131 mg/dL 74-106 [facility] Comment on above: Fasting Glucose resu lt greater than or equal to 126 mg/dL suggests DIABETES MELLITUS per A.D.A. criteria. Hemoglobin (Bld) [Mass/Vol] 10.2 g/dL 12.0-15.0 [facility] Monocytes/100 WBC (Bld) 9.9 % 0-10 [facility] Neutrophils (Bld) [#/Vol] 3.6 10*3/uL 2.0-7.7 [facility] Neutrophils/100 WBC (Bld) 71.4 % 47-70 [facility] Potassium [Moles/Vol] 4.3 mmol/L 3.5-5.1 [facility] Protein [Mass/Vol] 7.2 g/dL 6.4-8.2 [facility] Sodium [Moles/Vol] 137 mmol/L 136-145 [facility] WBC (Bld) [#/Vol] 5.0 10*3/uL 4.4-11.0 [facility] Determination of erythrocyte mean corpuscular volume (MCV)Ordered By: Shannan Waldrop on 12-02-2023 MCV (RBC) [Entitic vol] 99.1 fL 81-99 [facility] Erythrocyte distribution wid th ratioOrdered By: Shannan Waldrop on 12-02-2023 Erythrocyte distribution width (RBC) [Ratio] 16.8 % 11.6-14.6 [facility] Erythrocyte distribution wid th standard deviationOrdered By: Shannan Waldrop on 12-02-2023 Erythrocyte distribution width (RBC) [Entitic vol] 61.2 fL 35.1-43.9 [facility] Hematocrit Auto (Bld) [Volum e fraction]Ordered By: Shannan Waldrop on 12-02-2023 Hematocrit (Bld) [Volume fraction] 33.6 % 37-47 [facility] Immature granulocytes/100 WB C Auto (Bld)Ordered By: Shannan Waldrop on 12-02-2023 Immature granulocytes/100 WBC (Bld) 0.400 % 0.0-0.9 [facility] Comment on above: IG% - Immature Granu locytes (promyelocytes, myelocytes and metamyelocytes) > 1% indicates that a LEFT SHIFT is Present. Laboratory - Chemistry and C hemistry - challengeOrdered By: Shannan Waldrop on 12-02-2023 Albumin/Globulin [Mass ratio] 0.9 {ratio} 0.9-2.4 [facility] ALP [Catalytic activity/Vol] 64 U/L 45-117 [facility] ALT [Catalytic activity/Vol] 14 U/L 13-56 [facility] CO2 [Moles/Vol] 25.0 mmol/L 21.0-32.0 [facility] Globulin (S) [Mass/Vol] 3.8 g/dL 2.2-4.2 [facility] Urea nitrogen/Creatinine [Mass ratio] 24.1 mg/mg 10-20 [facility] Laboratory - Hematology and Cell countsOrdered By: Shannan Waldrop on 12-02-2023 MCH (RBC) [Entitic mass] 30.1 pg 27.0-32.0 [facility] MCHC (RBC) [Mass/Vol] 30.4 g/dL 32-36 [facility] Nucleated RBC/100 WBC (Bld) [Ratio] 0 % 0-5 [facility] Platelet mean volume (Bld) [Entitic vol] 8.8 fL 6.2-12.0 [facility] Platelets (Bld) [#/Vol] 322 10*3/uL 150-450 [facility] No Panel InformationOrdered By: Shannan Waldrop on 12-02-2023 Estimated Creatinine Clearance Calc 68.25 ml/min [facility] Estimated GFR (MDRD) Amer 106 mL/min >60 [facility] Comment on above: GFR Calc Estimated GFR (MDRD) Non-Af Amer 87 mL/min >60 [facility] Comment on above: Non- GFR Calc RBC Auto (Bld) [#/Vol]Ordere d By: Shannan Waldrop on 12-02-2023 RBC (Bld) [#/Vol] 3.39 10*6/uL 4.2-5.4 [facility] Serum or plasma calcium joaquin urement (mass/volume)Ordered By: Shannan Waldrop on 12-02-2023 Calcium [Mass/Vol] 9.0 mg/dL 8.5-10.1 [facility] Serum or plasma creatinine m easurement (mass/volume)Ordered By: Shannan Waldrop on 12-02-2023 Creatinine [Mass/Vol] 0.71 mg/dL 0.55-1.02 [facility] Comment on above: The validity of the calculated GFR & GFRAA in patients over 70 years has not been determined. Clinical correlation is essential. Serum or plasma urea nitroge n measurement (mass/volume)Ordered By: Shannan Waldrop on 12-02-2023 Urea nitrogen [Mass/Vol] 17 mg/dL 7-18 [facility] Thin prep Papanicolaou smear with manual screeningOrdered By: Shannan Waldrop on 12-02-2023 Thin prep Papanicolaou smear with manual screening 3.4 g/dL 3.2-5.0 [facility] Thin prep Papanicolaou smear with manual screening 11 U/L 15-37 [facility] Thin prep Papanicolaou smear with manual screening 6 5-15 [facility] Absolute lymphocyte countOrd ered By: Sharif Christianson on 11-28-2023 Lymphocytes Auto (Unsp spec) [#/Vol] 0.78 10*3/uL 0.83-4.51 [facility] Automated lymphocyte count a s percentage of total leukocytesOrdered By: Sharif Christianson on 11-28-2023 Lymphocytes/100 WBC Auto (Unsp spec) 13.6 % 19-41 [facility] Basophil percentageOrdered B y: Sharif Christianson on 11-28-2023 Basophils/100 WBC (Bld) 0.7 % 0-1 [facility] Bilirubin [Mass/Vol] 0.30 mg/dL 0.20-1.00 [facility] Comment on above: For patients on eltr ombopag therapy, use of Dimension [place] TBIL is not recommended. Chloride [Moles/Vol] 104 mmol/L 98-107 [facility] Eosinophils/100 WBC (Bld) 2.1 % 0-5 [facility] Glucose [Mass/Vol] 160 mg/dL 74-106 [facility] Comment on above: Fasting Glucose resu lt greater than or equal to 126 mg/dL suggests DIABETES MELLITUS per A.D.A. criteria. Hemoglobin (Bld) [Mass/Vol] 10.0 g/dL 12.0-15.0 [facility] Monocytes/100 WBC (Bld) 9.6 % 0-10 [facility] Neutrophils (Bld) [#/Vol] 4.2 10*3/uL 2.0-7.7 [facility] Neutrophils/100 WBC (Bld) 73.5 % 47-70 [facility] Potassium [Moles/Vol] 4.1 mmol/L 3.5-5.1 [facility] Protein [Mass/Vol] 7.4 g/dL 6.4-8.2 [facility] Sodium [Moles/Vol] 136 mmol/L 136-145 [facility] WBC (Bld) [#/Vol] 5.7 10*3/uL 4.4-11.0 [facility] Determination of erythrocyte mean corpuscular volume (MCV)Ordered By: Sharif Christianson on 11-28-2023 MCV (RBC) [Entitic vol] 100.9 fL 81-99 [facility] Erythrocyte distribution wid th ratioOrdered By: Sharif Christianson on 11-28-2023 Erythrocyte distribution width (RBC) [Ratio] 16.8 % 11.6-14.6 [facility] Erythrocyte distribution wid th standard deviationOrdered By: Sharif Christianson on 11-28-2023 Erythrocyte distribution width (RBC) [Entitic vol] 62.0 fL 35.1-43.9 [facility] Hematocrit Auto (Bld) [Volum e fraction]Ordered By: Sharif Christianson on 11-28-2023 Hematocrit (Bld) [Volume fraction] 33.6 % 37-47 [facility] Immature granulocytes/100 WB C Auto (Bld)Ordered By: Sharif Christianson on 11-28-2023 Immature granulocytes/100 WBC (Bld) 0.500 % 0.0-0.9 [facility] Comment on above: IG% - Immature Granu locytes (promyelocytes, myelocytes and metamyelocytes) > 1% indicates that a LEFT SHIFT is Present. Laboratory - Chemistry and C hemistry - challengeOrdered By: Sharif Christianson on 11-28-2023 Albumin/Globulin [Mass ratio] 0.8 {ratio} 0.9-2.4 [facility] ALP [Catalytic activity/Vol] 63 U/L 45-117 [facility] ALT [Catalytic activity/Vol] 20 U/L 13-56 [facility] CO2 [Moles/Vol] 26.0 mmol/L 21.0-32.0 [facility] Globulin (S) [Mass/Vol] 4.2 g/dL 2.2-4.2 [facility] Urea nitrogen/Creatinine [Mass ratio] 13.5 mg/mg 10-20 [facility] Laboratory - Hematology and Cell countsOrdered By: Sharif Christianson on 11-28-2023 MCH (RBC) [Entitic mass] 30.0 pg 27.0-32.0 [facility] MCHC (RBC) [Mass/Vol] 29.8 g/dL 32-36 [facility] Nucleated RBC/100 WBC (Bld) [Ratio] 0 % 0-5 [facility] Platelet mean volume (Bld) [Entitic vol] 9.8 fL 6.2-12.0 [facility] Platelets (Bld) [#/Vol] 322 10*3/uL 150-450 [facility] No Panel InformationOrdered By: Sharif Christianson on 11-28-2023 Estimated GFR (MDRD) Amer 81 mL/min >60 [facility] Comment on above: GFR Calc Estimated GFR (MDRD) Non-Af Amer 67 mL/min >60 [facility] Comment on above: Non- GFR Calc RBC Auto (Bld) [#/Vol]Ordere d By: Sharif Christianson on 11-28-2023 RBC (Bld) [#/Vol] 3.33 10*6/uL 4.2-5.4 [facility] Serum or plasma calcium joaquin urement (mass/volume)Ordered By: Sharif Christianson on 11-28-2023 Calcium [Mass/Vol] 9.3 mg/dL 8.5-10.1 [facility] Serum or plasma creatinine m easurement (mass/volume)Ordered By: Sharif Christianson on 11-28-2023 Creatinine [Mass/Vol] 0.89 mg/dL 0.55-1.02 [facility] Comment on above: The validity of the calculated GFR & GFRAA in patients over 70 years has not been determined. Clinical correlation is essential. Serum or plasma urea nitroge n measurement (mass/volume)Ordered By: Sharif Christianson on 11-28-2023 Urea nitrogen [Mass/Vol] 12 mg/dL 7-18 [facility] Thin prep Papanicolaou smear with manual screeningOrdered By: Sharif Christianson on 11-28-2023 Thin prep Papanicolaou smear with manual screening 3.2 g/dL 3.2-5.0 [facility] Thin prep Papanicolaou smear with manual screening 18 U/L 15-37 [facility] Thin prep Papanicolaou smear with manual screening 6 5-15 [facility] Laboratory - Chemistry and C hemistry - challengeOrdered By: Shannan Waldrop on 10-30-2023 Magnesium [Mass/Vol] 1.9 mg/dL 1.6-2.6 [facility] Basophil percentageOrdered B y: Shannan Waldrop on 10-06-2023 Basophil percentage 4.3 mg/dL 2.5-4.9 [facility] Laboratory - Chemistry and C hemistry - challengeOrdered By: Shannan Waldrop on 10-06-2023 Cobalamin (Vitamin B12) [Mass/Vol] 187 pg/mL 211-911 [facility] Laboratory - Hematology and Cell countsOrdered By: Shannan Waldrop on 10-06-2023 Anisocytosis Ql (Bld) 1+ [facility] Basophil percentageOrdered B y: Sharif Christianson on 09-25-2023 Basophil percentage >100 SEEN /hpf 0-5 [facility] Bilirubin Test strip Ql (U)O rdered By: Sharif Christianson on 09-25-2023 Bilirubin Ql (U) Negative Negative [facility] Ketones Test strip Ql (U)Ord ered By: Sharif Christianson on 09-25-2023 Ketones Ql (U) Negative Negative [facility] Mucus LM Ql (Urine sed)Order ed By: Sharif Christianson on 09-25-2023 Mucus Ql (Urine sed) 0 SEEN /hpf [facility] Nitrite Test strip Ql (U)Ord ered By: Sharif Christianson on 09-25-2023 Nitrite Ql (U) Positive Negative [facility] No Panel InformationOrdered By: Sharif Christianson on 09-25-2023 Urine Microalbumin/Creatinine Ratio 73.1 mg/g CRE <30 [facility] Urine RBC 0 SEEN /hpf 0-5 [facility] Protein Test strip Ql (U)Ord ered By: Sharif Christianson on 09-25-2023 Protein Ql (U) 30 mg/dl Negative [facility] Squamous epithelial cells de tection in urine sediment by light microscopyOrdered By: Sharif Christianson on 09-25-2023 Epithelial cells.squamous LM Ql (Urine sed) 0 SEEN /hpf 5-10 [facility] Thin prep Papanicolaou smear with manual screeningOrdered By: Sharif Christianson on 09-25-2023 Thin prep Papanicolaou smear with manual screening 128.0 mg/L NO RANGE EST. [facility] Urine blood detectionOrdered By: Sharif Christianson on 09-25-2023 RBC Ql (U) 25 /ul Negative [facility] Urine clarityOrdered By: Link Christianson on 09-25-2023 Clarity (U) Cloudy Clear [facility] Urine color determinationOrd ered By: Sharif Christianson on 09-25-2023 Color (U) Yellow Yellow [facility] Urine creatinine measurement (mass/volume)Ordered By: Sharif Christianson on 09-25-2023 Creatinine (U) [Mass/Vol] 175.00 mg/dL NO RANGE EST. [facility] Urine glucose detectionOrder ed By: Sharif Christianson on 09-25-2023 Glucose Ql (U) Normal mg/dl Normal [facility] Urine leukocyte esterase det ection by dipstickOrdered By: Sharif Christianson on 09-25-2023 Leukocyte esterase Test strip Ql (U) 500 /ul Negative [facility] Urine pHOrdered By: Sharif brasher on 09-25-2023 pH (U) 5.0 [pH] 5.0 - 8.0 [facility] Urine sediment bacteria coun t by microscopy (number/high power field)Ordered By: Sharif Christianson on 09-25-2023 Bacteria LM.HPF (Urine sed) [#/Area] 3 /[HPF] None Seen [facility] Urine specific gravity measu rementOrdered By: Sharif Christianson on 09-25-2023 Specific gravity (U) [Rel density] 1.025 1.002-1.030 [facility] Urine urobilinogen measureme ntOrdered By: Sharif Christianson on 09-25-2023 Urobilinogen Ql (U) Normal mg/dl Normal [facility] Absolute lymphocyte countOrd ered By: Sharif Christianson on 09-24-2023 Lymphocytes Auto (Unsp spec) [#/Vol] 0.43 10*3/uL 0.83-4.51 [facility] Automated lymphocyte count a s percentage of total leukocytesOrdered By: Sharif Christianson on 09-24-2023 Lymphocytes/100 WBC Auto (Unsp spec) 10.3 % 19-41 [facility] Basophil percentageOrdered B y: Sharif Christianson on 09-24-2023 Basophils/100 WBC (Bld) 0.7 % 0-1 [facility] Bilirubin [Mass/Vol] 0.30 mg/dL 0.20-1.00 [facility] Comment on above: For patients on eltr ombopag therapy, use of Dimension [place] TBIL is not recommended. Chloride [Moles/Vol] 109 mmol/L 98-107 [facility] Cholesterol [Mass/Vol] 102 mg/dL <200 [facility] Comment on above: <200 mg/dL Desirable 200-240 mg/dL Borderline >240 mg/dL High Risk Eosinophils/100 WBC (Bld) 1.2 % 0-5 [facility] Glucose [Mass/Vol] 148 mg/dL 74-106 [facility] Comment on above: Fasting Glucose resu lt greater than or equal to 126 mg/dL suggests DIABETES MELLITUS per A.D.A. criteria. Hemoglobin (Bld) [Mass/Vol] 10.3 g/dL 12.0-15.0 [facility] Monocytes/100 WBC (Bld) 13.7 % 0-10 [facility] Neutrophils (Bld) [#/Vol] 3.0 10*3/uL 2.0-7.7 [facility] Neutrophils/100 WBC (Bld) 73.1 % 47-70 [facility] Potassium [Moles/Vol] 4.2 mmol/L 3.5-5.1 [facility] Protein [Mass/Vol] 7.1 g/dL 6.4-8.2 [facility] Sodium [Moles/Vol] 135 mmol/L 136-145 [facility] Triglyceride [Mass/Vol] 194 mg/dL <199 [facility] Comment on above: The drugs N-Acetylcy steine and Metamizole may falsely depress this assay.Serum Triglycerides Reference Interval Normal <150 mg/dL Borderline high 150 - 199 mg/dL High 200 - 499 mg/dL Very High > or = 500 mg/dL WBC (Bld) [#/Vol] 4.2 10*3/uL 4.4-11.0 [facility] Blood manual differential co mment interpretation (narrative result)Ordered By: Sharif Christianson on 09-24-2023 Manual differential comment Kuldip (Bld) [Interp] SCANNED [facility] Determination of erythrocyte mean corpuscular volume (MCV)Ordered By: Sharif Christianson on 09-24-2023 MCV (RBC) [Entitic vol] 107.4 fL 81-99 [facility] Erythrocyte distribution wid th ratioOrdered By: Sharif Christianson on 09-24-2023 Erythrocyte distribution width (RBC) [Ratio] 20.2 % 11.6-14.6 [facility] Erythrocyte distribution wid th standard deviationOrdered By: Sharif Christianson on 09-24-2023 Erythrocyte distribution width (RBC) [Entitic vol] 78.7 fL 35.1-43.9 [facility] Hematocrit Auto (Bld) [Volum e fraction]Ordered By: Sharif Christianson on 09-24-2023 Hematocrit (Bld) [Volume fraction] 33.5 % 37-47 [facility] Immature granulocytes/100 WB C Auto (Bld)Ordered By: Sharif Christianson on 09-24-2023 Immature granulocytes/100 WBC (Bld) 1.000 % 0.0-0.9 [facility] Comment on above: IG% - Immature Granu locytes (promyelocytes, myelocytes and metamyelocytes) > 1% indicates that a LEFT SHIFT is Present. Laboratory - Chemistry and C hemistry - challengeOrdered By: Sharif Christianson on 09-24-2023 Albumin/Globulin [Mass ratio] 0.9 {ratio} 0.9-2.4 [facility] ALP [Catalytic activity/Vol] 61 U/L 45-117 [facility] ALT [Catalytic activity/Vol] 28 U/L 13-56 [facility] Cholesterol in HDL [Mass/Vol] 46 mg/dL >40 [facility] Comment on above: The drugs N-Acetylcy steine and Metamizole may falsely depress this assay. Reference Range HDL <40 mg/dL Low HDL Cholesterol HDL >or= 60 mg/dL High HDL Cholesterol Cholesterol in LDL [Mass/Vol] 17 mg/dL 0-130 [facility] CO2 [Moles/Vol] 23.0 mmol/L 21.0-32.0 [facility] Globulin (S) [Mass/Vol] 3.7 g/dL 2.2-4.2 [facility] Urea nitrogen/Creatinine [Mass ratio] 15.3 mg/mg 10-20 [facility] Laboratory - Hematology and Cell countsOrdered By: Sharif Christianson on 09-24-2023 Anisocytosis Ql (Bld) 2+ [facility] MCH (RBC) [Entitic mass] 33.0 pg 27.0-32.0 [facility] MCHC (RBC) [Mass/Vol] 30.7 g/dL 32-36 [facility] Nucleated RBC/100 WBC (Bld) [Ratio] 0 % 0-5 [facility] Platelet mean volume (Bld) [Entitic vol] 9.0 fL 6.2-12.0 [facility] Platelets (Bld) [#/Vol] 244 10*3/uL 150-450 [facility] Macrocytes detectionOrdered By: Sharif Christianson on 09-24-2023 Macrocytes Ql (Bld) 1+ [facility] No Panel InformationOrdered By: Sharif Christianson on 09-24-2023 Estimated GFR (MDRD) Amer 94 mL/min >60 [facility] Comment on above: GFR Calc Estimated GFR (MDRD) Non-Af Amer 77 mL/min >60 [facility] Comment on above: Non- GFR Calc Vitamin D 25-Hydroxy 19.5 ng/mL [facility] Comment on above: Vitamin D 25(OH) Sta tus Range Deficiency <20 ng/mL (50nmol/L) Insufficiency 20 - 30 ng/mL (50 - 75 nmol/L) Sufficiency 30 - 100 ng/mL (75 - 250 nmol/L) Toxicity >100 ng/mL (>250 nmol/L) VLDL Cholesterol 39 mg/dL 5-40 [facility] RBC Auto (Bld) [#/Vol]Ordere d By: Sharif Christianson on 09-24-2023 RBC (Bld) [#/Vol] 3.12 10*6/uL 4.2-5.4 [facility] Serum or plasma calcium joaquin urement (mass/volume)Ordered By: Sharif Christianson on 09-24-2023 Calcium [Mass/Vol] 8.7 mg/dL 8.5-10.1 [facility] Serum or plasma creatinine m easurement (mass/volume)Ordered By: Sharif Christianson on 09-24-2023 Creatinine [Mass/Vol] 0.78 mg/dL 0.55-1.02 [facility] Comment on above: The validity of the calculated GFR & GFRAA in patients over 70 years has not been determined. Clinical correlation is essential. Serum or plasma urea nitroge n measurement (mass/volume)Ordered By: Sharif Christianson on 09-24-2023 Urea nitrogen [Mass/Vol] 12 mg/dL 7-18 [facility] Thin prep Papanicolaou smear with manual screeningOrdered By: Sharif Christianson on 09-24-2023 Thin prep Papanicolaou smear with manual screening 1+ [facility] Thin prep Papanicolaou smear with manual screening 3.4 g/dL 3.2-5.0 [facility] Thin prep Papanicolaou smear with manual screening 12 U/L 15-37 [facility] Thin prep Papanicolaou smear with manual screening 3 5-15 [facility] Whole blood hemoglobin A1c/t otal hemoglobin ratio (mass fraction)Ordered By: Sharif Christianson on 09-24-2023 HbA1c (Bld) [Mass fraction] 6.2 % 3.8-5.6 [facility] Comment on above: Normal < 5.7 % Predi abetic 5.7 - 6.4 % Diabetic >or= 6.5 % Please note range changes. Absolute lymphocyte countOrd ered By: Shannan Waldrop on 09-08-2023 Lymphocytes Auto (Unsp spec) [#/Vol] 0.37 10*3/uL 0.83-4.51 [facility] Automated lymphocyte count a s percentage of total leukocytesOrdered By: Shannan Waldrop on 09-08-2023 Lymphocytes/100 WBC Auto (Unsp spec) 19.3 % 19-41 [facility] Basophil percentageOrdered B y: Shannan Waldrop on 09-08-2023 Basophil percentage 2.6 mg/dL 2.5-4.9 [facility] Basophils/100 WBC (Bld) 2.1 % 0-1 [facility] Chloride [Moles/Vol] 105 mmol/L 98-107 [facility] Eosinophils/100 WBC (Bld) 1.6 % 0-5 [facility] Glucose [Mass/Vol] 189 mg/dL 74-106 [facility] Comment on above: Fasting Glucose resu lt greater than or equal to 126 mg/dL suggests DIABETES MELLITUS per A.D.A. criteria. Hemoglobin (Bld) [Mass/Vol] 9.7 g/dL 12.0-15.0 [facility] Monocytes/100 WBC (Bld) 12.5 % 0-10 [facility] Neutrophils (Bld) [#/Vol] 1.2 10*3/uL 2.0-7.7 [facility] Neutrophils/100 WBC (Bld) 62.9 % 47-70 [facility] Potassium [Moles/Vol] 4.5 mmol/L 3.5-5.1 [facility] Sodium [Moles/Vol] 136 mmol/L 136-145 [facility] WBC (Bld) [#/Vol] 1.9 10*3/uL 4.4-11.0 [facility] Determination of erythrocyte mean corpuscular volume (MCV)Ordered By: Shannan Waldrop on 09-08-2023 MCV (RBC) [Entitic vol] 99.7 fL 81-99 [facility] Erythrocyte distribution wid th ratioOrdered By: Shannan Waldrop on 09-08-2023 Erythrocyte distribution width (RBC) [Ratio] 15.4 % 11.6-14.6 [facility] Erythrocyte distribution wid th standard deviationOrdered By: [facility] on 09-08-2023 Erythrocyte distribution width (RBC) [Entitic vol] 53.4 fL 35.1-43.9 [facility] Hematocrit Auto (Bld) [Volum e fraction]Ordered By: [facility] on 09-08-2023 Hematocrit (Bld) [Volume fraction] 29.6 % 37-47 [facility] Immature granulocytes/100 WB C Auto (Bld)Ordered By: [facility] on 09-08-2023 Immature granulocytes/100 WBC (Bld) 1.600 % 0.0-0.9 [facility] Comment on above: IG% - Immature Granu locytes (promyelocytes, myelocytes and metamyelocytes) > 1% indicates that a LEFT SHIFT is Present. Laboratory - Chemistry and C hemistry - challengeOrdered By: [facility] on 09-08-2023 CO2 [Moles/Vol] 24.0 mmol/L 21.0-32.0 [facility] Magnesium [Mass/Vol] 1.4 mg/dL 1.6-2.6 [facility] Urea nitrogen/Creatinine [Mass ratio] 18.9 mg/mg 10-20 [facility] Laboratory - Hematology and Cell countsOrdered By: Shannan Waldrop on 09-08-2023 Anisocytosis Ql (Bld) 3+ [facility] MCH (RBC) [Entitic mass] 32.7 pg 27.0-32.0 [facility] MCHC (RBC) [Mass/Vol] 32.8 g/dL 32-36 [facility] Nucleated RBC/100 WBC (Bld) [Ratio] 4.2 % 0-5 [facility] Platelets (Bld) [#/Vol] 238 10*3/uL 150-450 [facility] No Panel InformationOrdered By: Shannan Waldrop on 09-08-2023 Estimated Creatinine Clearance Calc 64.20 ml/min [facility] Estimated GFR (MDRD) Amer 86 mL/min >60 [facility] Comment on above: GFR Calc Estimated GFR (MDRD) Non-Af Amer 71 mL/min >60 [facility] Comment on above: Non- GFR Calc Platelet mean volume Clif-Ec ker (Bld) [Entitic vol]Ordered By: Shannan Waldrop on 09-08-2023 Platelet mean volume (Bld) [Entitic vol] 9.5 fL 6.2-12.0 [facility] RBC Auto (Bld) [#/Vol]Ordere d By: Shannan Waldrop on 09-08-2023 RBC (Bld) [#/Vol] 2.97 10*6/uL 4.2-5.4 [facility] Review by pathologistOrdered By: Shannan Waldrop on 09-08-2023 Pathologist review Kuldip (Unsp spec) [Interp] Reviewed [facility] Comment on above: Previous reported re sult: Jeanette hough Edited by: CATIE on 09/09/23:1021Leukopenia and neutropenia.Macrocytic anemia.Clinical correlation necessary.Gamal Murillo M.D. 09/09/23 AMENDED REPORT 09/09/23 1021 PATH REV previously reported as: Jeanette hough Serum or plasma calcium joaquin urement (mass/volume)Ordered By: Shannan Waldrop on 09-08-2023 Calcium [Mass/Vol] 9.1 mg/dL 8.5-10.1 [facility] Serum or plasma creatinine m easurement (mass/volume)Ordered By: Shannan Waldrop on 09-08-2023 Creatinine [Mass/Vol] 0.84 mg/dL 0.55-1.02 [facility] Comment on above: The validity of the calculated GFR & GFRAA in patients over 70 years has not been determined. Clinical correlation is essential. Serum or plasma urea nitroge n measurement (mass/volume)Ordered By: Shannan Waldrop on 09-08-2023 Urea nitrogen [Mass/Vol] 16 mg/dL 7-18 [facility] Thin prep Papanicolaou smear with manual screeningOrdered By: Shannan Waldrop on 09-08-2023 Thin prep Papanicolaou smear with manual screening 7 5-15 [facility] Basophil percentageOrdered B y: Shannan Waldrop on 09-01-2023 Bilirubin [Mass/Vol] 0.60 mg/dL 0.20-1.00 [facility] Comment on above: For patients on eltr ombopag therapy, use of Dimension [place] TBIL is not recommended. Protein [Mass/Vol] 6.6 g/dL 6.4-8.2 [facility] Blood manual differential co mment interpretation (narrative result)Ordered By: Shannan Waldrop on 09-01-2023 Manual differential comment Kuldip (Bld) [Interp] SCANNED [facility] Laboratory - Chemistry and C hemistry - challengeOrdered By: Shannan Waldrop on 09-01-2023 ALP [Catalytic activity/Vol] 59 U/L 45-117 [facility] ALT [Catalytic activity/Vol] 21 U/L 13-56 [facility] Globulin (S) [Mass/Vol] 3.7 g/dL 2.2-4.2 [facility] Serum or plasma albumin joaquin urement (mass/volume)Ordered By: Shannan Waldrop on 09-01-2023 Albumin [Mass/Vol] 2.9 g/dL 3.2-5.0 [facility] Serum or plasma albumin/glob ulin mass ratioOrdered By: Shannan Waldrop on 09-01-2023 Albumin/Globulin [Mass ratio] 0.8 {ratio} 0.9-2.4 [facility] Thin prep Papanicolaou smear with manual screeningOrdered By: Shannan Waldrop on 09-01-2023 Thin prep Papanicolaou smear with manual screening 9 U/L 15-37 [facility] Basophil percentageOrdered B y: Shannan Waldrop on 08-19-2023 Basophil percentage 0-5 SEEN /hpf 0-5 [facility] Basophil percentageOrdered B y: Nic Hall on 08-19-2023 LDH [Catalytic activity/Vol] 160 U/L 84-246 [facility] Bilirubin Test strip Ql (U)O rdered By: Shannan Waldrop on 08-19-2023 Bilirubin Ql (U) Negative Negative [facility] Culture, urineOrdered By: Adriana Waldrop on 08-19-2023 Bacteria identified Cx Nom (U) Escherichia coli Abnormal [facility] Bacteria identified Cx Nom (U) Enterococcus faecalis Abnormal [facility] Bacteria identified Cx Nom (U) Escherichia coli Abnormal [facility] Bacteria identified Cx Nom (U) Enterococcus faecalis Abnormal [facility] Epithelial cells.squamous LM Ql (Urine sed)Ordered By: Shannan Waldrop on 08-19-2023 Epithelial cells.squamous LM.HPF (Urine sed) [#/Area] 0 /[HPF] 5-10 [facility] Glucose Ql (U)Ordered By: Adriana Waldrop on 08-19-2023 Glucose (U) [Mass/Vol] 100 mg/dL High Normal [facility] Ketones Test strip Ql (U)Ord ered By: Shannan Waldrop on 08-19-2023 Ketones Ql (U) 5 mg/dl High Negative [facility] Mucus LM Ql (Urine sed)Order ed By: Shannan Waldrop on 08-19-2023 Mucus Ql (Urine sed) 1+ /hpf [facility] Nitrite Test strip Ql (U)Ord ered By: Shannan Waldrop on 08-19-2023 Nitrite Ql (U) Negative Negative [facility] PotassiumOrdered By: Nic Hall on 08-19-2023 Potassium 160 U/L 84-246 [facility] Protein Test strip Ql (U)Ord ered By: Shannan Waldrop on 08-19-2023 Protein Ql (U) 15 mg/dl High Negative [facility] RBC Ql (U)Ordered By: Lili Waldrop on 08-19-2023 Urine Occult Blood Negative Negative [facility] Urine RBC 0 SEEN /hpf 0-5 [facility] Squamous epithelial cells de tection in urine sediment by light microscopyOrdered By: Shannan Waldrop on 08-19-2023 Epithelial cells.squamous LM Ql (Urine sed) 0-5 SEEN /hpf 5-10 [facility] Trichomonas screening testOr dered By: Shannan Waldrop on 08-19-2023 Urine WBC 0-5 SEEN /hpf 0-5 [facility] Urine blood detectionOrdered By: Shannan Waldrop on 08-19-2023 RBC Ql (U) Negative Negative [facility] RBC Ql (U) 0 SEEN /hpf 0-5 [facility] Urine clarityOrdered By: Howard Waldrop on 08-19-2023 Clarity (U) Clear Clear [facility] Urine color determinationOrd ered By: Shannan Waldrop on 08-19-2023 Color (U) Yellow Yellow [facility] Urine glucose detectionOrder ed By: Shannan Waldrop on 08-19-2023 Glucose Ql (U) 100 mg/dl High Normal [facility] Urine leukocyte esterase det ection by dipstickOrdered By: Shannan Waldrop on 08-19-2023 Leukocyte esterase Test strip Ql (U) 25 /ul High Negative [facility] Urine pHOrdered By: Shannan Waldrop on 08-19-2023 pH (U) 5.0 [pH] 5.0 - 8.0 [facility] Urine sediment bacteria coun t by microscopy (number/high power field)Ordered By: Shannan Waldrop on 08-19-2023 Bacteria LM.HPF (Urine sed) [#/Area] 0 /[HPF] None Seen [facility] Urine specific gravity measu rementOrdered By: Shannan Waldrop on 08-19-2023 Specific gravity (U) [Rel density] 1.030 1.002-1.030 [facility] Urobilinogen Auto test strip Ql (U)Ordered By: Shannan Waldrop on 08-19-2023 Urine Urobilinogen Normal mg/dl Normal [facility] Urobilinogen Ql (U) Normal mg/dl Normal [facility] Iron (Unsp spec) [Mass/Mass] Ordered By: Shannan Waldrop on 08-04-2023 Iron [Mass/Vol] 65 ug/dL 50-170 [facility] Iron measurement (mass/mass) Ordered By: Shannan Waldrop on 08-04-2023 Iron (Unsp spec) [Mass/Mass] 65 ug/dL 50-170 [facility] Iron saturation [Mass fracti on]Ordered By: Shannan Waldrop on 08-04-2023 Iron Saturation 23.6 % 15.0-55.0 [facility] No Panel InformationOrdered By: Shannan Waldrop on 08-04-2023 Total Iron Binding Capacity 276 ug/dL 250-450 [facility] 276 ug/dL 250-450 [facility] Serum or plasma ferritin bryce surement (mass/volume)Ordered By: [facility] Loweryantelmo on 08-04-2023 Ferritin [Mass/Vol] 102 ng/mL 8-252 [facility] Serum or plasma iron saturat ion measurement (mass fraction)Ordered By: [facility] Lower[facility]elmo on 08-04-2023 Iron saturation [Mass fraction] 23.6 % 15.0-55.0 [facility] Absolute lymphocyte countOrd ered By: [facility] on 07-28-2023 Lymphocytes Auto (Unsp spec) [#/Vol] 1.23 10*3/uL 0.83-4.51 [facility] Basophil percentageOrdered B y: Shannan Loweryantelmo on 07-28-2023 Basophil percentage 3.0 mg/dL 2.5-4.9 [facility] Basophils/100 WBC (Bld) 0.5 % 0-1 [facility] Bilirubin [Mass/Vol] 0.40 mg/dL 0.20-1.00 [facility] Comment on above: For patients on eltr ombopag therapy, use of Dimension [place] TBIL is not recommended. Chloride [Moles/Vol] 108 mmol/L 98-107 [facility] Eosinophils/100 WBC (Bld) 1.2 % 0-5 [facility] Glucose [Mass/Vol] 223 mg/dL 74-106 [facility] Comment on above: Glucose result great er than or equal to 200 mg/dLsuggests DIABETES MELLITUS per A.D.A. criteria. Neutrophils (Bld) [#/Vol] 5.3 10*3/uL 2.0-7.7 [facility] Neutrophils/100 WBC (Bld) 71.1 % 47-70 [facility] Potassium [Moles/Vol] 4.2 mmol/L 3.5-5.1 [facility] Protein [Mass/Vol] 6.9 g/dL 6.4-8.2 [facility] Sodium [Moles/Vol] 139 mmol/L 136-145 [facility] WBC (Bld) [#/Vol] 7.5 10*3/uL 4.4-11.0 [facility] Blood erythrocytes count (nu mber/volume)Ordered By: Shannan Waldrop on 07-28-2023 RBC (Bld) [#/Vol] 4.07 10*6/uL 4.2-5.4 [facility] Blood hemoglobin measurement (mass/volume)Ordered By: Shannan Waldrop on 07-28-2023 Hemoglobin (Bld) [Mass/Vol] 12.7 g/dL 12.0-15.0 [facility] Blood lymphocytes/100 leukoc ytesOrdered By: [facility] Benjie on 07-28-2023 Lymphocytes/100 WBC (Bld) 16.4 % 19-41 [facility] Blood monocytes/100 leukocyt esOrdered By: [facility] Benjie on 07-28-2023 Monocytes/100 WBC (Bld) 10.4 % 0-10 [facility] Blood platelet mean volumeOr dered By: [facility] Benjie on 07-28-2023 Platelet mean volume (Bld) [Entitic vol] 9.5 fL 6.2-12.0 [facility] Determination of erythrocyte mean corpuscular volume (MCV)Ordered By: [facility] on 07-28-2023 MCV (RBC) [Entitic vol] 99.5 fL 81-99 [facility] Hematocrit Auto (Bld) [Volum e fraction]Ordered By: [facility] Benjie on 07-28-2023 Hematocrit (Bld) [Volume fraction] 40.5 % 37-47 [facility] Laboratory - Chemistry and C hemistry - challengeOrdered By: [facility] Benjie on 07-28-2023 ALP [Catalytic activity/Vol] 64 U/L 45-117 [facility] ALT [Catalytic activity/Vol] 20 U/L 13-56 [facility] CO2 [Moles/Vol] 24.0 mmol/L 21.0-32.0 [facility] Globulin (S) [Mass/Vol] 3.7 g/dL 2.2-4.2 [facility] Magnesium [Mass/Vol] 1.6 mg/dL 1.6-2.6 [facility] Urea nitrogen/Creatinine [Mass ratio] 16.5 mg/mg 10-20 [facility] Laboratory - Hematology and Cell countsOrdered By: Shannan Waldrop on 07-28-2023 Erythrocyte distribution width (RBC) [Entitic vol] 53.1 fL 35.1-43.9 [facility] Erythrocyte distribution width (RBC) [Ratio] 14.6 % 11.6-14.6 [facility] Immature granulocytes/100 WBC (Bld) 0.400 % 0.0-0.9 [facility] Comment on above: IG% - Immature Granu locytes (promyelocytes, myelocytes and metamyelocytes) > 1% indicates that a LEFT SHIFT is Present. MCH (RBC) [Entitic mass] 31.2 pg 27.0-32.0 [facility] Nucleated RBC/100 WBC (Bld) [Ratio] 0 % 0-5 [facility] MCHC Auto (RBC) [Mass/Vol]Or dered By: Shannan Waldrop on 07-28-2023 MCHC (RBC) [Mass/Vol] 31.4 g/dL 32-36 [facility] No Panel InformationOrdered By: Shannan Waldrop on 07-28-2023 Estimated Creatinine Clearance Calc 42.59 ml/min [facility] Estimated GFR (MDRD) Amer 102 mL/min >60 [facility] Comment on above: GFR Calc Estimated GFR (MDRD) Non-Af Amer 85 mL/min >60 [facility] Comment on above: Non- GFR Calc Platelets bldOrdered By: Howard Waldrop on 07-28-2023 Platelets (Bld) [#/Vol] 284 10*3/uL 150-450 [facility] Serum or plasma albumin joaquin urement (mass/volume)Ordered By: Shannan Waldrop on 07-28-2023 Albumin [Mass/Vol] 3.2 g/dL 3.2-5.0 [facility] Serum or plasma albumin/glob ulin mass ratioOrdered By: Shannan Waldrop on 07-28-2023 Albumin/Globulin [Mass ratio] 0.9 {ratio} 0.9-2.4 [facility] Serum or plasma calcium joaquin urement (mass/volume)Ordered By: Shannan Waldrop on 07-28-2023 Calcium [Mass/Vol] 9.1 mg/dL 8.5-10.1 [facility] Serum or plasma creatinine m easurement (mass/volume)Ordered By: Shannan Waldrop on 07-28-2023 Creatinine [Mass/Vol] 0.73 mg/dL 0.55-1.02 [facility] Comment on above: The validity of the calculated GFR & GFRAA in patients over 70 years has not been determined. Clinical correlation is essential. Serum or plasma urea nitroge n measurement (mass/volume)Ordered By: Shannan Waldrop on 07-28-2023 Urea nitrogen [Mass/Vol] 12 mg/dL 7-18 [facility] Thin prep Papanicolaou smear with manual screeningOrdered By: Shannan Waldrop on 07-28-2023 Thin prep Papanicolaou smear with manual screening 10 U/L 15-37 [facility] Thin prep Papanicolaou smear with manual screening 7 5-15 [facility] Basophil percentageOrdered B y: Brennen Roth on 07-24-2023 Creatinine [Mass/Vol] 1.2 mg/dL 0.55-1.02 [facility] Laboratory - Chemistry and C hemistry - challengeOrdered By: Brennen Roth on 07-24-2023 GFR/1.73 sq M.predicted among non-blacks MDRD (S/P/Bld) [Vol rate/Area] 47.0000 mL/min/{1.73_m2} >60 [facility] Glucose Glucometer (BldC) [M ass/Vol]Ordered By: Isreal Carvalho on 07-22-2023 Glucose [Mass/Vol] 125 mg/dL 74-106 [facility] Comment on above: MANAGEMENT OF PATIEN T CARE PER NURSING PROTOCOL CNOVon 06-19-2023 CNOV Office Visit (THORMN) KAELYN POWERS ([id number]) 1955 F CHT Date Time Provider Department 06/19/23 10:40 AM JOHN GREEN During your visit today, we recorded the following information about you: Temperature Pulse Respiration Blood pressure 98.5 degrees 58/minute 14/minute 119/88 Weight Height 82.6 kg 1.575 m John Green MD, PhD 06/20/2023 12:10 PM Unsigned [employer] [place] [address] [place] DEPARTMENT OF THORACIC AND CARDIOVASCULAR SURGERY NAME: KAELYN POWERS CLINIC #: [id number] DATE: 06/19/2023 AGE: 67 PHYSICIAN: John Green [...] the same time, was noted to have WI, which was likely an NSTEMI. The patient [...] ischemic heart disease. John Green M.D., Ph.D. :[id number] /[id number] John Green MD, PhD 06/23/2023 3:00 PM Signed [facility] THORAC[facility] SURGERY OUTPATIENT CONSULT NOTE Kaelyn Powers [id number] Requesting Provider: Pinky Winter MD Thoracic Physician: John Green MD Chief Complaint: Lung cancer Impression: 67 yo former 50 pack year smoker F with CAD/WI (ASA+Plavix), SDH s/p crainotomy and evacuation, PAD (cannot walk 10 feet without stopping), EtOH use, who presents with a biopsy proven [id number] NSCLC of the left upper lobe by [...] former 50 pack year smoker F with CAD/WI (ASA+Plavix), SDH s/p crainotomy and evacuation, PAD (cannot walk 10 feet without stopping), EtOH use, who presents with a biopsy proven [id number] NSCLC of the left upper lobe by PET scan. This has been monitored for the last two years. However, over the last year the patient has been hospitalized for a SDH, then COVID, then a mild WI. She did not receive any coronary angioplasty for this. She has not yet seen an oncologist or radiation oncologist. FEV1 100%. DLCO 128%. 6MWT 54.8% Living arrangement: Lives with family/friend Functional status: Independent Unintentional weight loss over last 3 months: No PAST MEDICAL HISTORY Diagnosis Date Alcoholism (HCC) Anemia Arthritis Bladder infection CAD S/P percutaneous cor (more content not included)... Normal [facility] Absolute lymphocyte countOrd ered By: Gwendolyn Petersen on 06-14-2023 Lymphocytes Auto (Unsp spec) [#/Vol] 1.15 10*3/uL 0.83-4.51 [facility] Basophil percentageOrdered B y: Gwendolyn Petersen on 06-14-2023 Basophils/100 WBC (Bld) 0.2 % 0-1 [facility] Chloride [Moles/Vol] 110 mmol/L 98-107 [facility] Eosinophils/100 WBC (Bld) 1.0 % 0-5 [facility] Glucose [Mass/Vol] 156 mg/dL 74-106 [facility] Comment on above: Fasting Glucose resu lt greater than or equal to 126 mg/dL suggests DIABETES MELLITUS per A.D.A. criteria. Neutrophils (Bld) [#/Vol] 2.3 10*3/uL 2.0-7.7 [facility] Neutrophils/100 WBC (Bld) 56.4 % 47-70 [facility] Potassium [Moles/Vol] 3.8 mmol/L 3.5-5.1 [facility] Sodium [Moles/Vol] 136 mmol/L 136-145 [facility] WBC (Bld) [#/Vol] 4.1 10*3/uL 4.4-11.0 [facility] Blood erythrocytes count (nu mber/volume)Ordered By: Gwendolyn Petersen on 06-14-2023 RBC (Bld) [#/Vol] 4.13 10*6/uL 4.2-5.4 [facility] Blood hemoglobin measurement (mass/volume)Ordered By: Gwendolyn Petersen on 06-14-2023 Hemoglobin (Bld) [Mass/Vol] 13.3 g/dL 12.0-15.0 [facility] Blood lymphocytes/100 leukoc ytesOrdered By: Gwendolyn Petersen on 06-14-2023 Lymphocytes/100 WBC (Bld) 28.0 % 19-41 [facility] Blood monocytes/100 leukocyt esOrdered By: Gwendolyn Petersen on 06-14-2023 Monocytes/100 WBC (Bld) 13.9 % 0-10 [facility] Blood platelet mean volumeOr dered By: Gwendolyn Petersen on 06-14-2023 Platelet mean volume (Bld) [Entitic vol] 9.0 fL 6.2-12.0 [facility] Determination of erythrocyte mean corpuscular volume (MCV)Ordered By: Gwendolyn Petersen on 06-14-2023 MCV (RBC) [Entitic vol] 98.1 fL 81-99 [facility] Glucose Glucometer (BldC) [M ass/Vol]Ordered By: Gwendolyn Petersen on 06-14-2023 Glucose [Mass/Vol] 174 mg/dL 74-106 [facility] Comment on above: MANAGEMENT OF PATIEN T CARE PER NURSING PROTOCOL Hematocrit Auto (Bld) [Volum e fraction]Ordered By: Gwendolyn Petersen on 06-14-2023 Hematocrit (Bld) [Volume fraction] 40.5 % 37-47 [facility] Laboratory - Chemistry and C hemistry - challengeOrdered By: Gwendolyn Petersen on 06-14-2023 CO2 [Moles/Vol] 26.0 mmol/L 21.0-32.0 [facility] Urea nitrogen/Creatinine [Mass ratio] 20.5 mg/mg 10-20 [facility] Laboratory - Hematology and Cell countsOrdered By: Gwendolyn Petersen on 06-14-2023 Erythrocyte distribution width (RBC) [Entitic vol] 49.2 fL 35.1-43.9 [facility] Erythrocyte distribution width (RBC) [Ratio] 13.8 % 11.6-14.6 [facility] Immature granulocytes/100 WBC (Bld) 0.500 % 0.0-0.9 [facility] Comment on above: IG% - Immature Granu locytes (promyelocytes, myelocytes and metamyelocytes) > 1% indicates that a LEFT SHIFT is Present. MCH (RBC) [Entitic mass] 32.2 pg 27.0-32.0 [facility] Nucleated RBC/100 WBC (Bld) [Ratio] 0 % 0-5 [facility] MCHC Auto (RBC) [Mass/Vol]Or dered By: Gwendolyn Petersen on 06-14-2023 MCHC (RBC) [Mass/Vol] 32.8 g/dL 32-36 [facility] No Panel InformationOrdered By: Gwendolyn Petersen on 06-14-2023 Estimated Creatinine Clearance Calc 42.59 ml/min [facility] Estimated GFR (MDRD) Amer 132 mL/min >60 [facility] Comment on above: GFR Calc Estimated GFR (MDRD) Non-Af Amer 109 mL/min >60 [facility] Comment on above: Non- GFR Calc Platelets bldOrdered By: Keyon Petersen on 06-14-2023 Platelets (Bld) [#/Vol] 170 10*3/uL 150-450 [facility] Serum or plasma calcium joaquin urement (mass/volume)Ordered By: Gwendolyn Petersen on 06-14-2023 Calcium [Mass/Vol] 8.1 mg/dL 8.5-10.1 [facility] Serum or plasma creatinine m easurement (mass/volume)Ordered By: Gwendolyn Petersen on 06-14-2023 Creatinine [Mass/Vol] 0.58 mg/dL 0.55-1.02 [facility] Comment on above: The validity of the calculated GFR & GFRAA in patients over 70 years has not been determined. Clinical correlation is essential. Serum or plasma urea nitroge n measurement (mass/volume)Ordered By: Gwendolyn Petersen on 06-14-2023 Urea nitrogen [Mass/Vol] 12 mg/dL 7-18 [facility] Thin prep Papanicolaou smear with manual screeningOrdered By: Gwendolyn Petersen on 06-14-2023 Thin prep Papanicolaou smear with manual screening 0 5-15 [facility] Whole blood hemoglobin A1c/t otal hemoglobin ratio (mass fraction)Ordered By: Gwendolyn Petersen on 06-14-2023 HbA1c (Bld) [Mass fraction] 8.1 % 3.8-5.6 [facility] Comment on above: Normal < 5.7 % Predi abetic 5.7 - 6.4 % Diabetic >or= 6.5 % Please note range changes. Laboratory - CoagulationOrde red By: Williams Nye on 06-13-2023 aPTT Coag (Bld) [Time] 52.7 s 24.1-36.2 [facility] Basophil percentageOrdered B y: Nic Caraballo on 06-12-2023 Cholesterol [Mass/Vol] 133 mg/dL <200 [facility] Comment on above: <200 mg/dL Desirable 200-240 mg/dL Borderline >240 mg/dL High Risk Triglyceride [Mass/Vol] 129 mg/dL <199 [facility] Comment on above: The drugs N-Acetylcy steine and Metamizole may falsely depress this assay.Serum Triglycerides Reference Interval Normal <150 mg/dL Borderline high 150 - 199 mg/dL High 200 - 499 mg/dL Very High > or = 500 mg/dL No Panel InformationOrdered By: Gena Johnson on 06-12-2023 Troponin I High Sensitivity 1587 pg/mL 3.0-54.0 [facility] Comment on above: Critical Result(s) C alled at: 11:58:06 06/12/2023 by: Maldonado Shannon RN (ICU). Results read back by same. Please Note: New Test Units and Gender Specific Reference Ranges. For more information see Policy Stat Procedure [place] High Sensitivity Troponin (TNIH) and attachments. Serum or plasma cholesterol in HDL measurement (mass/volume)Ordered By: Nic Caraballo on 06-12-2023 Cholesterol in HDL [Mass/Vol] 41 mg/dL >40 [facility] Comment on above: The drugs N-Acetylcy steine and Metamizole may falsely depress this assay. Reference Range HDL <40 mg/dL Low HDL Cholesterol HDL >or= 60 mg/dL High HDL Cholesterol Serum or plasma cholesterol in VLDL measurement (mass/volume)Ordered By: Nic Caraballo on 06-12-2023 Cholesterol in VLDL [Mass/Vol] 26 mg/dL 5-40 [facility] Serum or plasma low density lipoprotein (LDL) cholesterol measurement (mass/volume)Ordered By: Nic Caraballo on 06-12-2023 Cholesterol in LDL [Mass/Vol] 66 mg/dL 0-130 [facility] Absolute lymphocyte countOrd ered By: Williams Nye on 06-11-2023 Lymphocytes Auto (Unsp spec) [#/Vol] 1.11 10*3/uL 0.83-4.51 [facility] Basophil percentageOrdered B y: Williams Nye on 06-11-2023 Basophils/100 WBC (Bld) 0.6 % 0-1 [facility] Chloride [Moles/Vol] 99 mmol/L 98-107 [facility] Eosinophils/100 WBC (Bld) 0.5 % 0-5 [facility] Glucose [Mass/Vol] 194 mg/dL 74-106 [facility] Comment on above: Fasting Glucose resu lt greater than or equal to 126 mg/dL suggests DIABETES MELLITUS per A.D.A. criteria. Neutrophils (Bld) [#/Vol] 4.0 10*3/uL 2.0-7.7 [facility] Neutrophils/100 WBC (Bld) 63.2 % 47-70 [facility] Potassium [Moles/Vol] 4.1 mmol/L 3.5-5.1 [facility] Sodium [Moles/Vol] 132 mmol/L 136-145 [facility] WBC (Bld) [#/Vol] 6.3 10*3/uL 4.4-11.0 [facility] Blood erythrocytes count (nu mber/volume)Ordered By: Williams Nye on 06-11-2023 RBC (Bld) [#/Vol] 4.70 10*6/uL 4.2-5.4 [facility] Blood hemoglobin measurement (mass/volume)Ordered By: Williams Nye on 06-11-2023 Hemoglobin (Bld) [Mass/Vol] 15.4 g/dL 12.0-15.0 [facility] Blood lymphocytes/100 leukoc ytesOrdered By: Williams Nye on 06-11-2023 Lymphocytes/100 WBC (Bld) 17.5 % 19-41 [facility] Blood monocytes/100 leukocyt esOrdered By: Williams Nye on 06-11-2023 Monocytes/100 WBC (Bld) 17.4 % 0-10 [facility] Blood platelet mean volumeOr dered By: Williams Nye on 06-11-2023 Platelet mean volume (Bld) [Entitic vol] 9.8 fL 6.2-12.0 [facility] Determination of erythrocyte mean corpuscular volume (MCV)Ordered By: Williams Nye on 06-11-2023 MCV (RBC) [Entitic vol] 96.4 fL 81-99 [facility] Hematocrit Auto (Bld) [Volum e fraction]Ordered By: Williams Nye on 06-11-2023 Hematocrit (Bld) [Volume fraction] 45.3 % 37-47 [facility] INR in Blood by Coagulation assayOrdered By: Williams Nye on 06-11-2023 INR Coag (Bld) [Relative time] 1.2 {INR} [facility] Influenza virus A and B and SARS-CoV-2 (COVID-19) Ag panel - Upper respiratory specimOrdered By: Williams Nye on 06-11-2023 SARS-CoV-2 & FLU Antigen (Rapid) SARS-CoV-2 (COVID 19) [facility] SARS-CoV-2 & FLU Antigen (Rapid) SARS-CoV-2 (COVID 19) [facility] Laboratory - Chemistry and C hemistry - challengeOrdered By: Williams Nye on 06-11-2023 CO2 [Moles/Vol] 27.0 mmol/L 21.0-32.0 [facility] Urea nitrogen/Creatinine [Mass ratio] 13.0 mg/mg 10 [facility] Laboratory - CoagulationOrde red By: Williams Nye on 06-11-2023 aPTT Coag (Bld) [Time] 35.8 s 24.1-36.2 [facility] PT Coag (PPP) [Time] 14.9 s 11.7-14.9 [facility] Laboratory - Hematology and Cell countsOrdered By: Williams Nye on 06-11-2023 Erythrocyte distribution width (RBC) [Entitic vol] 48.1 fL 35.1-43.9 [facility] Erythrocyte distribution width (RBC) [Ratio] 13.4 % 11.6-14.6 [facility] Immature granulocytes/100 WBC (Bld) 0.800 % 0.0-0.9 [facility] Comment on above: IG% - Immature Granu locytes (promyelocytes, myelocytes and metamyelocytes) > 1% indicates that a LEFT SHIFT is Present. MCH (RBC) [Entitic mass] 32.8 pg 27.0-32.0 [facility] Nucleated RBC/100 WBC (Bld) [Ratio] 0 % 0-5 [facility] MCHC Auto (RBC) [Mass/Vol]Or dered By: Williams Nye on 06-11-2023 MCHC (RBC) [Mass/Vol] 34.0 g/dL 32-36 [facility] No Panel InformationOrdered By: Williams Nye on 06-11-2023 Estimated Creatinine Clearance Calc 46.29 ml/min [facility] Estimated GFR (MDRD) Amer 78 mL/min >60 [facility] Comment on above: GFR Calc Estimated GFR (MDRD) Non-Af Amer 64 mL/min >60 [facility] Comment on above: Non- GFR Calc Troponin I High Sensitivity 816 pg/mL 3.0-54.0 [facility] Comment on above: Critical Result(s) C alled at: 18:08:39 06/11/2023 by: Shaina JONES. Results read back by same. Please Note: New Test Units and Gender Specific Reference Ranges. For more information see Policy Stat Procedure [place] High Sensitivity Troponin (TNIH) and attachments. Platelets bldOrdered By: Jamari Nye on 06-11-2023 Platelets (Bld) [#/Vol] 234 10*3/uL 150-450 [facility] Serum or plasma calcium joaquin urement (mass/volume)Ordered By: Williams Nye on 06-11-2023 Calcium [Mass/Vol] 9.0 mg/dL 8.5-10.1 [facility] Serum or plasma creatinine m easurement (mass/volume)Ordered By: Williams Nye on 06-11-2023 Creatinine [Mass/Vol] 0.92 mg/dL 0.55-1.02 [facility] Comment on above: The validity of the calculated GFR & GFRAA in patients over 70 years has not been determined. Clinical correlation is essential. Serum or plasma urea nitroge n measurement (mass/volume)Ordered By: Williams Nye on 06-11-2023 Urea nitrogen [Mass/Vol] 12 mg/dL 03-04 [facility] Thin prep Papanicolaou smear with manual screeningOrdered By: Williams Nye on 06-11-2023 Thin prep Papanicolaou smear with manual screening 6 5-15 [facility] CNPNon 06-04-2023 CNPN Telephone ([employer]) HODAKAELYN Nataly ([id number]) 1955 F T Date Time Provider Department 06/04/23 JOHN GREEN During your visit today, we recorded the following information about you: Eli Rae 06/06/2023 1:33 PM Addendum LOCAL PATIENT Received Call from Dr. Maggy Powers is being referred to John Green M.D., Ph. D. by Pinky Winter MD ([facility]) [address] [id number] Patient diagnosis/Reason for consult: NSCLC, Nodule to be Resected Referral triage process explained: Yes Patient will receive a call from Thoracic NPM after triage review with surgeon to discuss any additional testing and/or consults that will be scheduled. Pt will then receive a call from our scheduling office for scheduling. Please call pt at [phone]. Patient was informed consultation could be at [place] or [facility] [place]: No Patient Registration: Registration complete/updated: yes Insurance card(s) [facility] with in the past year: Yes: Date: 04/18/22 Pt's [employer] is inactive. Ok to communicate to pt via [employer] not asked Medical Records: Records in [facility] (internal [facility] records): No Imaging in [facility] (internal [facility] records): No Care Everywhere - queried yes, downloaded No Linked Outside Organizations (list): n/a OSH Records Requested: yes Date: June 04, 2023 Outside Hospital(s) requested records from: Dr. Winter Received: yes Uploaded: Yes. Waiting on additional records: No. Missing (list): N/A OSH Pathology Slides Requested: no Date: N/A Outside Hospital(s) slides requested from: n/a OSH Radiology Imaging Requested: yes Date: June 05, 2023 Outside Hospital(s) requested imaging from: [facility]. Imaging will be received via Electronic Transfer Received: Yes Imaging uploaded: Yes Waiting on additional: No. Missing (list): n/a Additional providers added to Care Teams: Yes Additional Notes/Comments: n/a Enct routed to: Jose CROCKETT for Triage Eli Rae, membership administrator Altagracia Dash RN 06/16/2023 1:16 PM Addendum Thoracic Surgery Consultation - review of records for appointment scheduling Received medical records from the office of Pinky Winter MD ([facility]) [address] [place] [facility] [address] Patient is being referred to John Green [...] is moderate biatrial dilatation. Office Notes/Consults 06/12 cards [facility] - dr black Assessment/Plan (1) NSTEMI, [...] recent A1C (more content not included)... Normal [facility] Absolute lymphocyte countOrd ered By: Claude Nunez on 05-01-2023 Lymphocytes Auto (Unsp spec) [#/Vol] 1.69 10*3/uL 0.83-4.51 [facility] Basophil percentageOrdered B y: Claude Nunez on 05-01-2023 Basophils/100 WBC (Bld) 0.6 % 0-1 [facility] Eosinophils/100 WBC (Bld) 1.9 % 0-5 [facility] Neutrophils (Bld) [#/Vol] 4.3 10*3/uL 2.0-7.7 [facility] Neutrophils/100 WBC (Bld) 62.1 % 47-70 [facility] WBC (Bld) [#/Vol] 6.8 10*3/uL 4.4-11.0 [facility] Blood erythrocytes count (nu mber/volume)Ordered By: Claude Nunez on 05-01-2023 RBC (Bld) [#/Vol] 4.42 10*6/uL 4.2-5.4 [facility] Blood hemoglobin measurement (mass/volume)Ordered By: Claude Nunez on 05-01-2023 Hemoglobin (Bld) [Mass/Vol] 14.4 g/dL 12.0-15.0 [facility] Blood lymphocytes/100 leukoc ytesOrdered By: Claude Nunez on 05-01-2023 Lymphocytes/100 WBC (Bld) 24.7 % 19-41 [facility] Blood monocytes/100 leukocyt esOrdered By: Claude Nunez on 05-01-2023 Monocytes/100 WBC (Bld) 10.1 % 0-10 [facility] Blood platelet mean volumeOr dered By: Claude Nunez on 05-01-2023 Platelet mean volume (Bld) [Entitic vol] 9.2 fL 6.2-12.0 [facility] Determination of erythrocyte mean corpuscular volume (MCV)Ordered By: Claude Nunez on 05-01-2023 MCV (RBC) [Entitic vol] 99.5 fL 81-99 [facility] Hematocrit Auto (Bld) [Volum e fraction]Ordered By: Claude Nunez on 05-01-2023 Hematocrit (Bld) [Volume fraction] 44.0 % 37-47 [facility] INR in Blood by Coagulation assayOrdered By: Claude Nunez on 05-01-2023 INR Coag (Bld) [Relative time] 0.9 {INR} [facility] Laboratory - CoagulationOrde red By: Claude Nunez on 05-01-2023 aPTT Coag (Bld) [Time] 31.5 s 24.1-36.2 [facility] PT Coag (PPP) [Time] 12.4 s 11.7-14.9 [facility] Laboratory - Hematology and Cell countsOrdered By: Claude Nunez on 05-01-2023 Erythrocyte distribution width (RBC) [Entitic vol] 47.4 fL 35.1-43.9 [facility] Erythrocyte distribution width (RBC) [Ratio] 12.8 % 11.6-14.6 [facility] Immature granulocytes/100 WBC (Bld) 0.600 % 0.0-0.9 [facility] Comment on above: IG% - Immature Granu locytes (promyelocytes, myelocytes and metamyelocytes) > 1% indicates that a LEFT SHIFT is Present. MCH (RBC) [Entitic mass] 32.6 pg 27.0-32.0 [facility] Nucleated RBC/100 WBC (Bld) [Ratio] 0 % 0-5 [facility] MCHC Auto (RBC) [Mass/Vol]Or dered By: Claude Nunez on 05-01-2023 MCHC (RBC) [Mass/Vol] 32.7 g/dL 32-36 [facility] Platelets bldOrdered By: Raciel Nunez on 05-01-2023 Platelets (Bld) [#/Vol] 240 10*3/uL 150-450 [facility] Absolute lymphocyte countOrd ered By: Shannan Waldrop on 01-29-2023 Lymphocytes Auto (Unsp spec) [#/Vol] 1.90 10*3/uL 0.83-4.51 [facility] Basophil percentageOrdered B y: Shannan Waldrop on 01-29-2023 Basophils/100 WBC (Bld) 0.6 % 0-1 [facility] Eosinophils/100 WBC (Bld) 1.9 % 0-5 [facility] Neutrophils (Bld) [#/Vol] 3.7 10*3/uL 2.0-7.7 [facility] Neutrophils/100 WBC (Bld) 57.2 % 47-70 [facility] WBC (Bld) [#/Vol] 6.4 10*3/uL 4.4-11.0 [facility] Blood erythrocytes count (nu mber/volume)Ordered By: Shannan Waldrop on 01-29-2023 RBC (Bld) [#/Vol] 4.19 10*6/uL 4.2-5.4 [facility] Blood hemoglobin measurement (mass/volume)Ordered By: Shannan Waldrop on 01-29-2023 Hemoglobin (Bld) [Mass/Vol] 13.8 g/dL 12.0-15.0 [facility] Blood lymphocytes/100 leukoc ytesOrdered By: Shannan Waldrop on 01-29-2023 Lymphocytes/100 WBC (Bld) 29.5 % 19-41 [facility] Blood monocytes/100 leukocyt esOrdered By: Shannan Waldrop on 01-29-2023 Monocytes/100 WBC (Bld) 10.0 % 0-10 [facility] Blood platelet mean volumeOr dered By: Shannan Waldrop on 01-29-2023 Platelet mean volume (Bld) [Entitic vol] 9.3 fL 6.2-12.0 [facility] Determination of erythrocyte mean corpuscular volume (MCV)Ordered By: Shannan Waldrop on 01-29-2023 MCV (RBC) [Entitic vol] 98.8 fL 81-99 [facility] Hematocrit Auto (Bld) [Volum e fraction]Ordered By: Shannan Waldrop on 01-29-2023 Hematocrit (Bld) [Volume fraction] 41.4 % 37-47 [facility] Iron measurement (mass/mass) Ordered By: Shannan Waldrop on 01-29-2023 Iron (Unsp spec) [Mass/Mass] 88 ug/dL 50-170 [facility] Laboratory - Hematology and Cell countsOrdered By: Shannan Waldrop on 01-29-2023 Erythrocyte distribution width (RBC) [Entitic vol] 48.9 fL 35.1-43.9 [facility] Erythrocyte distribution width (RBC) [Ratio] 13.4 % 11.6-14.6 [facility] Immature granulocytes/100 WBC (Bld) 0.800 % 0.0-0.9 [facility] Comment on above: IG% - Immature Granu locytes (promyelocytes, myelocytes and metamyelocytes) > 1% indicates that a LEFT SHIFT is Present. MCH (RBC) [Entitic mass] 32.9 pg 27.0-32.0 [facility] Nucleated RBC/100 WBC (Bld) [Ratio] 0 % 0-5 [facility] MCHC Auto (RBC) [Mass/Vol]Or dered By: Shannan Waldrop on 01-29-2023 MCHC (RBC) [Mass/Vol] 33.3 g/dL 32-36 [facility] No Panel InformationOrdered By: Shannan Waldrop on 01-29-2023 Total Iron Binding Capacity 334 ug/dL 250-450 [facility] Platelets bldOrdered By: Howard Waldrop on 01-29-2023 Platelets (Bld) [#/Vol] 241 10*3/uL 150-450 [facility] Serum or plasma ferritin bryce surement (mass/volume)Ordered By: Shannan Waldrop on 01-29-2023 Ferritin [Mass/Vol] 51 ng/mL 8-252 [facility] Serum or plasma iron saturat ion measurement (mass fraction)Ordered By: Shannan Waldrop on 01-29-2023 Iron saturation [Mass fraction] 26.3 % 15.0-55.0 [facility] Basophil percentageOrdered B y: Iris Clayton on 11-06-2022 Chloride [Moles/Vol] 107 mmol/L 98-107 [facility] Cholesterol [Mass/Vol] 194 mg/dL <200 [facility] Comment on above: <200 mg/dL Desirable 200-240 mg/dL Borderline >240 mg/dL High Risk Glucose [Mass/Vol] 119 mg/dL 74-106 [facility] Comment on above: Fasting Glucose resu lt from 100 to 125 mg/dL suggests IMPAIRED HOMEOSTASIS per A.D.A. criteria. Potassium [Moles/Vol] 4.1 mmol/L 3.5-5.1 [facility] Sodium [Moles/Vol] 140 mmol/L 136-145 [facility] Triglyceride [Mass/Vol] 260 mg/dL <199 [facility] Comment on above: The drugs N-Acetylcy steine and Metamizole may falsely depress this assay.Serum Triglycerides Reference Interval Normal <150 mg/dL Borderline high 150 - 199 mg/dL High 200 - 499 mg/dL Very High > or = 500 mg/dL Laboratory - Chemistry and C hemistry - challengeOrdered By: Iris Clayton on 11-06-2022 CO2 [Moles/Vol] 26.0 mmol/L 21.0-32.0 [facility] Urea nitrogen/Creatinine [Mass ratio] 25.2 mg/mg 10-20 [facility] No Panel InformationOrdered By: Iris Clayton on 11-06-2022 Estimated GFR (MDRD) Amer 129 mL/min >60 [facility] Comment on above: GFR Calc Estimated GFR (MDRD) Non-Af Amer 107 mL/min >60 [facility] Comment on above: Non- GFR Calc Serum or plasma calcium joaquin urement (mass/volume)Ordered By: Iris Clayton on 11-06-2022 Calcium [Mass/Vol] 9.3 mg/dL 8.5-10.1 [facility] Serum or plasma cholesterol in HDL measurement (mass/volume)Ordered By: Iris Clayton on 11-06-2022 Cholesterol in HDL [Mass/Vol] 39 mg/dL >40 [facility] Comment on above: The drugs N-Acetylcy steine and Metamizole may falsely depress this assay. Reference Range HDL <40 mg/dL Low HDL Cholesterol HDL >or= 60 mg/dL High HDL Cholesterol Serum or plasma cholesterol in VLDL measurement (mass/volume)Ordered By: Iris Clayton on 11-06-2022 Cholesterol in VLDL [Mass/Vol] 52 mg/dL 5-40 [facility] Serum or plasma creatinine m easurement (mass/volume)Ordered By: Iris Clayton on 11-06-2022 Creatinine [Mass/Vol] 0.60 mg/dL 0.55-1.02 [facility] Comment on above: The validity of the calculated GFR & GFRAA in patients over 70 years has not been determined. Clinical correlation is essential. Serum or plasma low density lipoprotein (LDL) cholesterol measurement (mass/volume)Ordered By: Iris Clayton on 11-06-2022 Cholesterol in LDL [Mass/Vol] 103 mg/dL 0-130 [facility] Serum or plasma urea nitroge n measurement (mass/volume)Ordered By: Iris Clayton on 11-06-2022 Urea nitrogen [Mass/Vol] 15 mg/dL 7-18 [facility] Thin prep Papanicolaou smear with manual screeningOrdered By: Iris Clayton on 11-06-2022 Thin prep Papanicolaou smear with manual screening 7 5-15 [facility] Basophil percentageOrdered B y: Iris Clayton on 08-13-2022 Bilirubin [Mass/Vol] 0.40 mg/dL 0.20-1.00 [facility] Comment on above: For patients on eltr ombopag therapy, use of Dimension [place] TBIL is not recommended. Chloride [Moles/Vol] 106 mmol/L 98-107 [facility] Glucose [Mass/Vol] 126 mg/dL 74-106 [facility] Comment on above: Fasting Glucose resu lt greater than or equal to 126 mg/dL suggests DIABETES MELLITUS per A.D.A. criteria. Potassium [Moles/Vol] 4.4 mmol/L 3.5-5.1 [facility] Protein [Mass/Vol] 6.7 g/dL 6.4-8.2 [facility] Sodium [Moles/Vol] 139 mmol/L 136-145 [facility] Laboratory - Chemistry and C hemistry - challengeOrdered By: Iris Clayton on 08-13-2022 ALP [Catalytic activity/Vol] 73 U/L 45-117 [facility] ALT [Catalytic activity/Vol] 29 U/L 13-56 [facility] CO2 [Moles/Vol] 28.0 mmol/L 21.0-32.0 [facility] Globulin (S) [Mass/Vol] 3.1 g/dL 2.2-4.2 [facility] Urea nitrogen/Creatinine [Mass ratio] 23.2 mg/mg 10-20 [facility] No Panel InformationOrdered By: Iris Clayton on 08-13-2022 Estimated GFR (MDRD) Amer 127 mL/min >60 [facility] Comment on above: GFR Calc Estimated GFR (MDRD) Non-Af Amer 105 mL/min >60 [facility] Comment on above: Non- GFR Calc Serum or plasma albumin joaquin urement (mass/volume)Ordered By: Iris Clayton on 08-13-2022 Albumin [Mass/Vol] 3.6 g/dL 3.2-5.0 [facility] Serum or plasma albumin/glob ulin mass ratioOrdered By: Iris Clayton on 08-13-2022 Albumin/Globulin [Mass ratio] 1.2 {ratio} 0.9-2.4 [facility] Serum or plasma calcium joaquin urement (mass/volume)Ordered By: Iris Clayton on 08-13-2022 Calcium [Mass/Vol] 9.2 mg/dL 8.5-10.1 [facility] Serum or plasma creatinine m easurement (mass/volume)Ordered By: Iris Clayton on 08-13-2022 Creatinine [Mass/Vol] 0.60 mg/dL 0.55-1.02 [facility] Comment on above: The validity of the calculated GFR & GFRAA in patients over 70 years has not been determined. Clinical correlation is essential. Serum or plasma urea nitroge n measurement (mass/volume)Ordered By: Iris Clayton on 08-13-2022 Urea nitrogen [Mass/Vol] 14 mg/dL 7-18 [facility] Thin prep Papanicolaou smear with manual screeningOrdered By: Iris Clayton on 08-13-2022 Thin prep Papanicolaou smear with manual screening 11 U/L 15-37 [facility] Thin prep Papanicolaou smear with manual screening 5 5-15 [facility] Culture, urineOrdered By: Robina Clayton on 07-31-2022 Bacteria identified Cx Nom (U) Presumptive E. coli [facility] Absolute lymphocyte countOrd ered By: Dr. Waldrop on 07-30-2022 Lymphocytes Auto (Unsp spec) [#/Vol] 1.97 10*3/uL 0.83-4.51 [facility] Basophil percentageOrdered B y: Dr. Waldrop on 07-30-2022 Basophils/100 WBC (Bld) 0.4 % 0-1 [facility] Eosinophils/100 WBC (Bld) 1.2 % 0-5 [facility] Neutrophils (Bld) [#/Vol] 5.9 10*3/uL 2.0-7.7 [facility] Neutrophils/100 WBC (Bld) 65.6 % 47-70 [facility] WBC (Bld) [#/Vol] 8.9 10*3/uL 4.4-11.0 [facility] Blood erythrocytes count (nu mber/volume)Ordered By: Dr. Waldrop on 07-30-2022 RBC (Bld) [#/Vol] 5.30 10*6/uL 4.2-5.4 [facility] Blood hemoglobin measurement (mass/volume)Ordered By: Dr. Waldrop on 07-30-2022 Hemoglobin (Bld) [Mass/Vol] 16.8 g/dL 12.0-15.0 [facility] Blood lymphocytes/100 leukoc ytesOrdered By: Dr. Waldrop on 07-30-2022 Lymphocytes/100 WBC (Bld) 22.0 % 19-41 [facility] Blood monocytes/100 leukocyt esOrdered By: Dr. Waldrop on 07-30-2022 Monocytes/100 WBC (Bld) 10.5 % 0-10 [facility] Blood platelet mean volumeOr dered By: Dr. Waldrop on 07-30-2022 Platelet mean volume (Bld) [Entitic vol] 9.3 fL 6.2-12.0 [facility] Determination of erythrocyte mean corpuscular volume (MCV)Ordered By: Dr. Waldrop on 07-30-2022 MCV (RBC) [Entitic vol] 96.0 fL 81-99 [facility] Hematocrit Auto (Bld) [Volum e fraction]Ordered By: Dr. Waldrop on 07-30-2022 Hematocrit (Bld) [Volume fraction] 50.9 % 37-47 [facility] Iron measurement (mass/mass) Ordered By: Dr. Waldrop on 07-30-2022 Iron (Unsp spec) [Mass/Mass] 89 ug/dL 50-170 [facility] Laboratory - Hematology and Cell countsOrdered By: Dr. Waldrop on 07-30-2022 Erythrocyte distribution width (RBC) [Entitic vol] 57.9 fL 35.1-43.9 [facility] Erythrocyte distribution width (RBC) [Ratio] 16.4 % 11.6-14.6 [facility] Immature granulocytes/100 WBC (Bld) 0.300 % 0.0-0.9 [facility] Comment on above: IG% - Immature Granu locytes (promyelocytes, myelocytes and metamyelocytes) > 1% indicates that a LEFT SHIFT is Present. MCH (RBC) [Entitic mass] 31.7 pg 27.0-32.0 [facility] Nucleated RBC/100 WBC (Bld) [Ratio] 0 % 0-5 [facility] MCHC Auto (RBC) [Mass/Vol]Or dered By: Dr. Waldrop on 07-30-2022 MCHC (RBC) [Mass/Vol] 33.0 g/dL 32-36 [facility] No Panel InformationOrdered By: Dr. Waldrop on 07-30-2022 Total Iron Binding Capacity 384 ug/dL 250-450 [facility] Platelets bldOrdered By: Dr. Waldrop on 07-30-2022 Platelets (Bld) [#/Vol] 225 10*3/uL 150-450 [facility] Serum or plasma ferritin bryce surement (mass/volume)Ordered By: Dr. Waldrop on 07-30-2022 Ferritin [Mass/Vol] 23 ng/mL 8-252 [facility] Serum or plasma iron saturat ion measurement (mass fraction)Ordered By: Dr. Waldrop on 07-30-2022 Iron saturation [Mass fraction] 23.2 % 15.0-55.0 [facility] CNOVon 05-23-2022 CNOV Normal [facility] CNOVon 05-07-2022 CNOV Normal [facility] Absolute lymphocyte counton 04-29-2022 Lymphocytes Auto (Unsp spec) [#/Vol] 1.23 10*3/uL 0.83-4.51 [facility] Work Phone: Basophil percentageon 2021 Basophils/100 WBC (Bld) 0.3 % 0-1 [facility] Work Phone: Eosinophils/100 WBC (Bld) 1.0 % 0-5 [facility] Work Phone: [phone] Neutrophils (Bld) [#/Vol] 4.8 10*3/uL 2.0-7.7 [facility] Work Phone: [phone] Neutrophils/100 WBC (Bld) 71.9 % 47-70 [facility] Work Phone: [phone] WBC (Bld) [#/Vol] 6.7 10*3/uL 4.4-11.0 [facility] Work Phone: [phone] Blood erythrocytes count (nu mber/volume)on 04-29-2022 RBC (Bld) [#/Vol] 4.27 10*6/uL 4.2-5.4 [facility] Work Phone: Blood hemoglobin measurement (mass/volume)on 04-29-2022 Hemoglobin (Bld) [Mass/Vol] 12.7 g/dL 12.0-15.0 [facility] Work Phone: Blood lymphocytes/100 leukoc yteson 04-29-2022 Lymphocytes/100 WBC (Bld) 18.3 % 19-41 [facility] Work Phone: Blood monocytes/100 leukocyt eson 04-29-2022 Monocytes/100 WBC (Bld) 8.2 % 0-10 [facility] Work Phone: Blood platelet mean volumeon 04-29-2022 Platelet mean volume (Bld) [Entitic vol] 9.2 fL 6.2-12.0 [facility] Work Phone: Determination of erythrocyte mean corpuscular volume (MCV)on 04-29-2022 MCV (RBC) [Entitic vol] 97.0 fL 81-99 [facility] Work Phone: Hematocrit Auto (Bld) [Volum e fraction]on 04-29-2022 Hematocrit (Bld) [Volume fraction] 41.4 % 37-47 [facility] Work Phone: Iron measurement (mass/mass) on 04-29-2022 Iron (Unsp spec) [Mass/Mass] 30 ug/dL 50-170 [facility] Work Phone: Laboratory - Hematology and Cell countsOrdered By: Dr. Waldrop on 04-29-2022 Anisocytosis Ql (Bld) RARE [facility] Laboratory - Hematology and Cell countson 04-29-2022 Erythrocyte distribution width (RBC) [Entitic vol] 65.7 fL 35.1-43.9 [facility] Work Phone: Erythrocyte distribution width (RBC) [Ratio] 18.3 % 11.6-14.6 [facility] Work Phone: Immature granulocytes/100 WBC (Bld) 0.300 % 0.0-0.9 [facility] Work Phone: Comment on above: IG% - Immature Granu locytes (promyelocytes, myelocytes and metamyelocytes) > 1% indicates that a LEFT SHIFT is Present. MCH (RBC) [Entitic mass] 29.7 pg 27.0-32.0 [facility] Work Phone: [phone] Nucleated RBC/100 WBC (Bld) [Ratio] 0 % 0-5 [facility] Work Phone: MCHC Auto (RBC) [Mass/Vol]on 04-29-2022 MCHC (RBC) [Mass/Vol] 30.7 g/dL 32-36 [facility] Work Phone: No Panel Informationon 04-29 Total Iron Binding Capacity 339 ug/dL 250-450 [facility] Work Phone: Platelets bldon 04-29-2022 Platelets (Bld) [#/Vol] 241 10*3/uL 150-450 [facility] Work Phone: Serum or plasma ferritin bryce surement (mass/volume)on 04-29-2022 Ferritin [Mass/Vol] 45 ng/mL 8-252 [facility] Work Phone: Serum or plasma iron saturat ion measurement (mass fraction)on 04-29-2022 Iron saturation [Mass fraction] 8.8 % 15.0-55.0 [facility] Work Phone: Absolute lymphocyte counton 04-23-2022 Lymphocytes Auto (Unsp spec) [#/Vol] 1.45 10*3/uL 0.83-4.51 [facility] Work Phone: Basophil percentageon 2021 Basophils/100 WBC (Bld) 0.2 % 0-1 [facility] Work Phone: Chloride [Moles/Vol] 110 mmol/L 98-107 [facility] Work [facility]: Eosinophils/100 WBC (Bld) 1.6 % 0-5 [facility] Work Phone: Glucose [Mass/Vol] 103 mg/dL 74-106 [facility] Work Phone: Comment on above: Fasting Glucose resu lt from 100 to 125 mg/dL suggests IMPAIRED HOMEOSTASIS per A.D.A. criteria. Neutrophils (Bld) [#/Vol] 2.9 10*3/uL 2.0-7.7 [facility] Work Phone: Neutrophils/100 WBC (Bld) 59.0 % 47-70 [facility] Work Phone: Potassium [Moles/Vol] 3.9 mmol/L 3.5-5.1 [facility] Work Phone: Sodium [Moles/Vol] 143 mmol/L 136-145 [facility] Work Phone: WBC (Bld) [#/Vol] 5.0 10*3/uL 4.4-11.0 [facility] Work Phone: Blood erythrocytes count (nu mber/volume)on 04-23-2022 RBC (Bld) [#/Vol] 4.42 10*6/uL 4.2-5.4 [facility] Work Phone: Blood hemoglobin measurement (mass/volume)on 04-23-2022 Hemoglobin (Bld) [Mass/Vol] 13.2 g/dL 12.0-15.0 [facility] Work Phone: Blood lymphocytes/100 leukoc yteson 04-23-2022 Lymphocytes/100 WBC (Bld) 29.3 % 19-41 [facility] Work Phone: Blood monocytes/100 leukocyt eson 04-23-2022 Monocytes/100 WBC (Bld) 9.5 % 0-10 [facility] Work Phone: Blood platelet mean volumeon 04-23-2022 Platelet mean volume (Bld) [Entitic vol] 9.1 fL 6.2-12.0 [facility] Work Phone: Determination of erythrocyte mean corpuscular volume (MCV)on 04-23-2022 MCV (RBC) [Entitic vol] 97.7 fL 81-99 [facility] Work Phone: Hematocrit Auto (Bld) [Volum e fraction]on 04-23-2022 Hematocrit (Bld) [Volume fraction] 43.2 % 37-47 [facility] Work Phone: Laboratory - Chemistry and C hemistry - challengeon 04-23-2022 CO2 [Moles/Vol] 27.0 mmol/L 21.0-32.0 [facility] Work Phone: Urea nitrogen/Creatinine [Mass ratio] 28.1 mg/mg 10-20 [facility] Work Phone: Laboratory - Hematology and Cell countson 04-23-2022 Anisocytosis Ql (Bld) 1+ [facility] Work Phone: Erythrocyte distribution width (RBC) [Entitic vol] 67.4 fL 35.1-43.9 [facility] Work Phone: Erythrocyte distribution width (RBC) [Ratio] 19.0 % 11.6-14.6 [facility] Work Phone: Immature granulocytes/100 WBC (Bld) 0.400 % 0.0-0.9 [facility] Work Phone: Comment on above: IG% - Immature Granu locytes (promyelocytes, myelocytes and metamyelocytes) > 1% indicates that a LEFT SHIFT is Present. MCH (RBC) [Entitic mass] 29.9 pg 27.0-32.0 [facility] Work Phone: Nucleated RBC/100 WBC (Bld) [Ratio] 0 % 0-5 [facility] Work Phone: MCHC Auto (RBC) [Mass/Vol]on 04-23-2022 MCHC (RBC) [Mass/Vol] 30.6 g/dL 32-36 [facility] Work Phone: No Panel Informationon 04-23 Estimated Creatinine Clearance Calc 43.18 ml/min [facility] Work Phone: Estimated GFR (MDRD) Amer 147 mL/min >60 [facility] Work Phone: Comment on above: GFR Calc Estimated GFR (MDRD) Non-Af Amer 121 mL/min >60 [facility] Work Phone: Comment on above: Non- GFR Calc Platelets bldon 04-23-2022 Platelets (Bld) [#/Vol] 252 10*3/uL 150-450 [facility] Work Phone: Serum or plasma calcium joaquin urement (mass/volume)on 04-23-2022 Calcium [Mass/Vol] 9.3 mg/dL 8.5-10.1 [facility] Work Phone: Serum or plasma creatinine m easurement (mass/volume)on 04-23-2022 Creatinine [Mass/Vol] 0.53 mg/dL 0.55-1.02 [facility] Work [facility]: Comment on above: The validity of the calculated GFR & GFRAA in patients over 70 years has not been determined. Clinical correlation is essential. Serum or plasma urea nitroge n measurement (mass/volume)on 04-23-2022 Urea nitrogen [Mass/Vol] 15 mg/dL 7-18 [facility] Work Phone: Thin prep Papanicolaou smear with manual screeningon 04-23-2022 Thin prep Papanicolaou smear with manual screening 6 5-15 [facility] Work Phone: CNOVon 04-18-2022 CNOV Normal [facility] CT BRAIN WO IVCONon 04-18-[address] BRAIN WO IVCON Normal [facility] Absolute lymphocyte counton 04-17-2022 Lymphocytes Auto (Unsp spec) [#/Vol] 2.16 10*3/uL 0.83-4.51 [facility] Work Phone: Basophil percentageon 2021 Basophils/100 WBC (Bld) 0.6 % 0-1 [facility] Work Phone: Eosinophils/100 WBC (Bld) 1.3 % 0-5 [facility] Work Phone: Neutrophils (Bld) [#/Vol] 3.5 10*3/uL 2.0-7.7 [facility] Work Phone: Neutrophils/100 WBC (Bld) 55.8 % 47-70 [facility] Work Phone: WBC (Bld) [#/Vol] 6.3 10*3/uL 4.4-11.0 [facility] Work Phone: Blood erythrocytes count (nu mber/volume)on 04-17-2022 RBC (Bld) [#/Vol] 4.03 10*6/uL 4.2-5.4 [facility] Work Phone: Blood hemoglobin measurement (mass/volume)on 04-17-2022 Hemoglobin (Bld) [Mass/Vol] 12.1 g/dL 12.0-15.0 [facility] Work Phone: Blood lymphocytes/100 leukoc yteson 04-17-2022 Lymphocytes/100 WBC (Bld) 34.1 % 19-41 [facility] Work Phone: Blood manual differential co mment interpretation (narrative result)on 04-17-2022 Manual differential comment Kuldip (Bld) [Interp] SCANNED [facility] Work Phone: Blood monocytes/100 leukocyt eson 04-17-2022 Monocytes/100 WBC (Bld) 7.9 % 0-10 [facility] Work Phone: Blood platelet adequacy dete ction by light microscopyon 04-17-2022 Platelets LM Ql (Bld) ADEQUATE ADEQ [facility] Work Phone: Blood platelet mean volumeon 04-17-2022 Platelet mean volume (Bld) [Entitic vol] 9.9 fL 6.2-12.0 [facility] Work Phone: Blood platelet morphology de termination (nominal result)on 04-17-2022 Platelet morphology finding Nom (Bld) CLUMPED [facility] Work Phone: Determination of erythrocyte mean corpuscular volume (MCV)on 04-17-2022 MCV (RBC) [Entitic vol] 100.5 fL 81-99 [facility] Work Phone: Hematocrit Auto (Bld) [Volum e fraction]on 04-17-2022 Hematocrit (Bld) [Volume fraction] 40.5 % 37-47 [facility] Work Phone: Laboratory - Hematology and Cell countson 04-17-2022 Anisocytosis Ql (Bld) 1+ [facility] Work Phone: Erythrocyte distribution width (RBC) [Entitic vol] 69.0 fL 35.1-43.9 [facility] Work Phone: Erythrocyte distribution width (RBC) [Ratio] 18.4 % 11.6-14.6 [facility] Work Phone: Immature granulocytes/100 WBC (Bld) 0.300 % 0.0-0.9 [facility] [facility] Work Phone: Comment on above: IG% - Immature Granu locytes (promyelocytes, myelocytes and metamyelocytes) > 1% indicates that a LEFT SHIFT is Present. MCH (RBC) [Entitic mass] 30.0 pg 27.0-32.0 [facility] Work Phone: Nucleated RBC/100 WBC (Bld) [Ratio] 0 % 0-5 [facility] Work Phone: MCHC Auto (RBC) [Mass/Vol]on 04-17-2022 MCHC (RBC) [Mass/Vol] 29.9 g/dL 32-36 [facility] Work Phone: Macrocytes detectionon 04-17 Macrocytes Ql (Bld) 1+ [facility] Work Phone: [phone] Platelets bldon 04-17-2022 Platelets (Bld) [#/Vol] 274 10*3/uL 150-450 [facility] Work Phone: Absolute lymphocyte counton 04-16-2022 Lymphocytes Auto (Unsp spec) [#/Vol] 2.31 10*3/uL 0.83-4.51 [facility] Work Phone: Basophil percentageon 2021 Basophils/100 WBC (Bld) 0.9 % 0-1 [facility] Work Phone: Eosinophils/100 WBC (Bld) 1.6 % 0-5 [facility] Work Phone: Neutrophils (Bld) [#/Vol] 3.8 10*3/uL 2.0-7.7 [facility] Work Phone: [phone] Neutrophils/100 WBC (Bld) 55.2 % 47-70 [facility] Work Phone: WBC (Bld) [#/Vol] 6.9 10*3/uL 4.4-11.0 [facility] Work Phone: Blood erythrocytes count (nu mber/volume)on 04-16-2022 RBC (Bld) [#/Vol] 3.84 10*6/uL 4.2-5.4 [facility] Work Phone: Blood hemoglobin measurement (mass/volume)on 04-16-2022 Hemoglobin (Bld) [Mass/Vol] 11.5 g/dL 12.0-15.0 [facility] Work Phone: Blood lymphocytes/100 leukoc yteson 04-16-2022 Lymphocytes/100 WBC (Bld) 33.4 % 19-41 [facility] Work Phone: Blood monocytes/100 leukocyt eson 04-16-2022 Monocytes/100 WBC (Bld) 8.5 % 0-10 [facility] Work Phone: Blood platelet mean volumeon 04-16-2022 Platelet mean volume (Bld) [Entitic vol] 8.7 fL 6.2-12.0 [facility] Work Phone: Determination of erythrocyte mean corpuscular volume (MCV)on 04-16-2022 MCV (RBC) [Entitic vol] 97.7 fL 81-99 [facility] Work Phone: Hematocrit Auto (Bld) [Volum e fraction]on 04-16-2022 Hematocrit (Bld) [Volume fraction] 37.5 % 37-47 [facility] Work Phone: Laboratory - Hematology and Cell countson 04-16-2022 Erythrocyte distribution width (RBC) [Entitic vol] 63.8 fL 35.1-43.9 [facility] Work Phone: Erythrocyte distribution width (RBC) [Ratio] 17.9 % 11.6-14.6 [facility] Work Phone: [phone] Immature granulocytes/100 WBC (Bld) 0.400 % 0.0-0.9 [facility] Work Phone: Comment on above: IG% - Immature Granu locytes (promyelocytes, myelocytes and metamyelocytes) > 1% indicates that a LEFT SHIFT is Present. MCH (RBC) [Entitic mass] 29.9 pg 27.0-32.0 [facility] Work Phone: Nucleated RBC/100 WBC (Bld) [Ratio] 0 % 0-5 [facility] Work Phone: MCHC Auto (RBC) [Mass/Vol]on 04-16-2022 MCHC (RBC) [Mass/Vol] 30.7 g/dL 32-36 [facility] Work Phone: Platelets bldon 04-16-2022 Platelets (Bld) [#/Vol] 360 10*3/uL 150-450 [facility] Work Phone: Basophil percentageon 2021 Chloride [Moles/Vol] 105 mmol/L 98-107 [facility] Work Phone: [phone] Glucose [Mass/Vol] 97 mg/dL 74-106 [facility] Work Phone: Potassium [Moles/Vol] 3.9 mmol/L 3.5-5.1 [facility] Work Phone: Sodium [Moles/Vol] 138 mmol/L 136-145 [facility] Work Phone: Laboratory - Chemistry and C hemistry - challengeon 04-15-2022 CO2 [Moles/Vol] 25.0 mmol/L 21.0-32.0 [facility] Work Phone: Urea nitrogen/Creatinine [Mass ratio] 41.9 mg/mg 10-20 [facility] Work Phone: [phone] No Panel Informationon 04-15 Estimated Creatinine Clearance Calc 43.18 ml/min [facility] Work Phone: Estimated GFR (MDRD) Amer 188 mL/min >60 [facility] Work Phone: Comment on above: GFR Calc Estimated GFR (MDRD) Non-Af Amer 156 mL/min >60 [facility] Work Phone: Comment on above: Non- GFR Calc Serum or plasma calcium joaquin urement (mass/volume)on 04-15-2022 Calcium [Mass/Vol] 8.6 mg/dL 8.5-10.1 [facility] Work Phone: Serum or plasma creatinine m easurement (mass/volume)on 04-15-2022 Creatinine [Mass/Vol] 0.43 mg/dL 0.55-1.02 [facility] Work Phone: Comment on above: The validity of the calculated GFR & GFRAA in patients over 70 years has not been determined. Clinical correlation is essential. Serum or plasma urea nitroge n measurement (mass/volume)on 04-15-2022 Urea nitrogen [Mass/Vol] 18 mg/dL 7-18 [facility] Work Phone: Thin prep Papanicolaou smear with manual screeningon 04-15-2022 Thin prep Papanicolaou smear with manual screening 8 5-15 [facility] Work Phone: Glucose Glucometer (BldC) [M ass/Vol]on 04-11-2022 Glucose [Mass/Vol] 99 mg/dL 74-106 [facility] Work Phone: Comment on above: MANAGEMENT OF PATIEN T CARE PER NURSING PROTOCOL CNPNon 04-10-2022 CNPN Normal [facility] Basophil percentageon 2021 Basophil percentage >100 SEEN /hpf 0-5 [facility] Work Phone: Bilirubin Test strip Ql (U)o n 04-09-2022 Bilirubin Ql (U) Negative Negative [facility] Work Phone: Ketones Test strip Ql (U)on 04-09-2022 Ketones Ql (U) Negative Negative [facility] Work Phone: Mucus LM Ql (Urine sed)on Mucus Ql (Urine sed) 0 SEEN /hpf [facility] Work Phone: Nitrite Test strip Ql (U)on 04-09-2022 Nitrite Ql (U) Positive Negative [facility] Work Phone: Protein Test strip Ql (U)on 04-09-2022 Protein Ql (U) 15 mg/dl Negative [facility] Work Phone: Squamous epithelial cells de tection in urine sediment by light microscopyon 04-09-2022 Epithelial cells.squamous LM Ql (Urine sed) 0 SEEN /hpf 5-10 [facility] Work Phone: Urine blood detectionon 03-19 RBC Ql (U) 10 /ul Negative [facility] Work Phone: RBC Ql (U) 5-10 SEEN /hpf 0-5 [facility] Work Phone: Urine clarityon 04-09-2022 Clarity (U) Sl. Cloudy Clear [facility] Work Phone: Urine color determinationon 04-09-2022 Color (U) Yellow Yellow [facility] Work Phone: Urine glucose detectionon Glucose Ql (U) 1000 mg/dl Normal [facility] Work Phone: Urine leukocyte esterase det ection by dipstickon 04-09-2022 Leukocyte esterase Test strip Ql (U) 500 /ul Negative [facility] Work Phone: Urine pHon 04-09-2022 pH (U) 6.0 [pH] 5.0 - 8.0 [facility] Work Phone: [phone] Urine sediment bacteria coun t by microscopy (number/high power field)on 04-09-2022 Bacteria LM.HPF (Urine sed) [#/Area] 2 /[HPF] None Seen [facility] Work Phone: Urine sediment leukocyte susan t count by microscopy (number/low power field)on 04-09-2022 WBC casts LM.LPF (Urine sed) [#/Area] 0-5 SEEN /lpf None Seen [facility] Work Phone: Urine specific gravity measu rementon 04-09-2022 Specific gravity (U) [Rel density] 1.020 1.002-1.030 [facility] Work Phone: Urobilinogen Auto test strip Ql (U)on 04-09-2022 Urobilinogen Ql (U) Normal mg/dl Normal [facility] Work Phone: Basophil percentageon 2021 Basophil percentage 2.9 mg/dL 2.5-4.9 [facility] Work Phone: Bilirubin [Mass/Vol] 0.40 mg/dL 0.20-1.00 [facility] Work Phone: Comment on above: For patients on eltr ombopag therapy, use of Dimension [place] TBIL is not recommended. Protein [Mass/Vol] 6.7 g/dL 6.4-8.2 [facility] Work Phone: Iron measurement (mass/mass) on 04-06-2022 Iron (Unsp spec) [Mass/Mass] 42 ug/dL 50-170 [facility] Work Phone: Laboratory - Chemistry and C hemistry - challengeon 04-06-2022 ALP [Catalytic activity/Vol] 96 U/L 45-117 [facility] Work Phone: ALT [Catalytic activity/Vol] 25 U/L 13-56 [facility] Work Phone: Globulin (S) [Mass/Vol] 4.1 g/dL 2.2-4.2 [facility] Work Phone: Magnesium [Mass/Vol] 2.0 mg/dL 1.6-2.6 [facility] Work Phone: No Panel Informationon 04-06 Total Iron Binding Capacity 270 ug/dL 250-450 [facility] Work Phone: Serum or plasma albumin joaquin urement (mass/volume)on 04-06-2022 Albumin [Mass/Vol] 2.6 g/dL 3.2-5.0 [facility] Work Phone: Serum or plasma albumin/glob ulin mass ratioon 04-06-2022 Albumin/Globulin [Mass ratio] 0.6 {ratio} 0.9-2.4 [facility] Work Phone: Serum or plasma ferritin bryce surement (mass/volume)on 04-06-2022 Ferritin [Mass/Vol] 93 ng/mL 8-252 [facility] Work Phone: Serum or plasma iron saturat ion measurement (mass fraction)on 04-06-2022 Iron saturation [Mass fraction] 15.6 % 15.0-55.0 [facility] Work Phone: Thin prep Papanicolaou smear with manual screeningon 04-06-2022 Thin prep Papanicolaou smear with manual screening 12 U/L 15-37 [facility] Work Phone: Whole blood hemoglobin A1c/t otal hemoglobin ratio (mass fraction)on 04-06-2022 HbA1c (Bld) [Mass fraction] 5.3 % 3.8-5.6 [facility] Work Phone: Comment on above: Normal < 5.7 % Predi abetic 5.7 - 6.4 % Diabetic >or= 6.5 % Please note range changes. CASE MANAGEMon 04-05-2022 CASE MANAGEM Normal [facility] CASE MANAGEM Normal [facility] CNDSon 04-05-2022 CNDS Normal [facility] NUTRITIONon 04-05-2022 NUTRITION Normal [facility] THERAPY NTon 04-05-2022 THERAPY NT Normal [facility] ALLIED HEALTHon 04-04-2022 ALLIED HEALTH Normal [facility] CONSULTon 04-04-2022 CONSULT Normal [facility] THERAPY NTon 04-04-2022 THERAPY NT Normal [facility] XR HUMERUS 2V AP/LAT RTon XR HUMERUS 2V AP/LAT RT Normal [facility] CBC W Auto Differential pane l (Bld)on 04-03-2022 Basophils (Bld) [#/Vol] 0.03 10*3/uL Normal <0.11 [facility] Comment on above: Order Comment: Speci men Type: BLOOD SPECIMENOrdering Facility: [facility] Address: [address] [place] [address] Performed By: #### 5 7021-8 ####[facility] LABORATORYCLIA [id number] [place] [address] [place] Basophils/100 WBC (Bld) 0.4 % Normal [facility] Comment on above: Order Comment: Speci men Type: BLOOD SPECIMENOrdering Facility: [facility] Address: [address] [place] [address] Performed By: #### 5 7021-8 ####[facility] LABORATORYCLIA [id number] [place] [address] [place] Differential cell count method Nom (Bld) Auto Normal [facility] Comment on above: Order Comment: Speci men Type: BLOOD SPECIMENOrdering Facility: [facility] Address: [address] [place] [address] Performed By: #### 5 7021-8 ####[facility] LABORATORYCLIA [id number] [place] [address] [place] Eosinophils (Bld) [#/Vol] 0.08 10*3/uL Normal <0.46 [facility] Comment on above: Order Comment: Speci men Type: BLOOD SPECIMENOrdering Facility: [facility] Address: [address] [place] [address] Performed By: #### 5 7021-8 ####[facility] LABORATORYCLIA [id number] [place] [address] [place] Eosinophils/100 WBC (Bld) 1.0 % Normal [facility] Comment on above: Order Comment: Speci men Type: BLOOD SPECIMENOrdering Facility: [facility] Address: [address] [place] [address] Performed By: #### 5 7021-8 ####[facility] LABORATORYCLIA [id number] [address] Erythrocyte distribution width (RBC) [Ratio] 18.5 % High 11.5-15.0 [facility] Comment on above: Order Comment: Speci men Type: BLOOD SPECIMENOrdering Facility: [facility] Address: [address] [place] [address] Performed By: #### 5 7021-8 ####[facility] LABORATORYCLIA [id number] [address] Hematocrit (Bld) [Volume fraction] 32.8 % Low 36.0-46.0 [facility] Comment on above: Order Comment: Speci men Type: BLOOD SPECIMENOrdering Facility: [facility] Address: [address] [place] [address] Performed By: #### 5 7021-8 ####[facility] LABORATORYCLIA [id number] [address] Hemoglobin (Bld) [Mass/Vol] 10.2 g/dL Low 11.5-15.5 [facility] Comment on above: Order Comment: Speci men Type: BLOOD SPECIMENOrdering Facility: [facility] Address: [address] [place] [address] Performed By: #### 5 7021-8 ####[facility] LABORATORYCLIA [id number] [address] IMMATURE GRAN % 0.4 % Normal [facility] Comment on above: Order Comment: Speci men Type: BLOOD SPECIMENOrdering Facility: [facility] Address: [address] [place] [address] Performed By: #### 5 7021-8 ####[facility] LABORATORYCLIA [id number] [address] IMMATURE GRAN ABS 0.03 k/uL Normal <0.10 [facility] Comment on above: Order Comment: Speci men Type: BLOOD SPECIMENOrdering Facility: [facility] Address: [address] [place] [address] Performed By: #### 5 7021-8 ####[facility] LABORATORYCLIA [id number] [address] OF [facility] Lymphocytes (Bld) [#/Vol] 1.51 10*3/uL Normal 1.00-4.0 0 [facility] Comment on above: Order Comment: Speci men Type: BLOOD SPECIMENOrdering Facility: [facility] Address: [address] [place] [address] Performed By: #### 5 7021-8 ####[facility] LABORATORYCLIA [id number] [address] Lymphocytes/100 WBC (Bld) 18.2 % Normal [facility] Comment on above: Order Comment: Speci men Type: BLOOD SPECIMENOrdering Facility: [facility] Address: [address] [place] [address] Performed By: #### 5 7021-8 ####[facility] LABORATORYCLIA [id number] [address] [place] MCH (RBC) [Entitic mass] 29.7 pg Normal 26.0-34.0 [facility] Comment on above: Order Comment: Speci men Type: BLOOD SPECIMENOrdering Facility: [facility] Address: [address] [place] [address] Performed By: #### 5 7021-8 ####[facility] LABORATORYCLIA [id number] [address] [place] MCHC (RBC) [Mass/Vol] 31.1 g/dL Normal 30.5-36.0 [facility] Comment on above: Order Comment: Speci men Type: BLOOD SPECIMENOrdering Facility: [facility] Address: [address] [place] [address] Performed By: #### 5 7021-8 ####[facility] LABORATORYCLIA [id number] [address] [place] MCV (RBC) [Entitic vol] 95.6 fL Normal 80.0-100.0 [facility] Comment on above: Order Comment: Speci men Type: BLOOD SPECIMENOrdering Facility: [facility] Address: [address] [place] [address] Performed By: #### 5 7021-8 ####[facility] LABORATORYCLIA [id number] [address] [place] Monocytes (Bld) [#/Vol] 0.99 10*3/uL High <0.87 [facility] Comment on above: Order Comment: Speci men Type: BLOOD SPECIMENOrdering Facility: [facility] Address: [address] [place] [address] Performed By: #### 5 7021-8 ####[facility] LABORATORYCLIA [id number] [address] Monocytes/100 WBC (Bld) 11.9 % Normal [facility] Comment on above: Order Comment: Speci men Type: BLOOD SPECIMENOrdering Facility: [facility] Address: [address] [place] [address] Performed By: #### 5 7021-8 ####[facility] LABORATORYCLIA [id number] [address] [place] Neutrophils (Bld) [#/Vol] 5.66 10*3/uL Normal 1.45-7.5 0 [facility] Comment on above: Order Comment: Speci men Type: BLOOD SPECIMENOrdering Facility: [facility] Address: [address] [place] [address] Performed By: #### 5 7021-8 ####[facility] LABORATORYCLIA [id number] [address] [place] Neutrophils/100 WBC (Bld) 68.1 % Normal [facility] Comment on above: Order Comment: Speci men Type: BLOOD SPECIMENOrdering Facility: [facility] Address: [address] [address] Performed By: #### 5 7021-8 ####[facility] LABORATORYCLIA [id number] [address] Nucleated RBC (Bld) [#/Vol] 10*3/uL Normal <0.01 [facility] Comment on above: Order Comment: Speci men Type: BLOOD SPECIMENOrdering Facility: [facility] Address: [address] [place] [address] Performed By: #### 5 7021-8 ####[facility] LABORATORYCLIA [id number] [address] OF [facility] Nucleated RBC/100 WBC (Bld) [Ratio] 0.0 /100 WBC Normal [facility] Comment on above: Order Comment: Speci men Type: BLOOD SPECIMENOrdering Facility: [facility] Address: [address] [place] [address] Performed By: #### 5 7021-8 ####[facility] LABORATORYCLIA [id number] [address] [place] Platelet mean volume (Bld) [Entitic vol] 9.6 fL Normal 9.0-12.7 [facility] Comment on above: Order Comment: Speci men Type: BLOOD SPECIMENOrdering Facility: [facility] Address: [address] [place] [address] Performed By: #### 5 7021-8 ####[facility] LABORATORYCLIA [id number] [address] [place] Platelets (Bld) [#/Vol] 396 10*3/uL Normal 150-400 [facility] Comment on above: Order Comment: Speci men Type: BLOOD SPECIMENOrdering Facility: [facility] Address: [address] [place] [address] Performed By: #### 5 7021-8 ####[facility] LABORATORYCLIA [id number] [address] [place] RBC (Bld) [#/Vol] 3.43 10*6/uL Low 3.90-5.20 [facility] Comment on above: Order Comment: Speci men Type: BLOOD SPECIMENOrdering Facility: [facility] Address: [address] [place] [address] Performed By: #### 5 7021-8 ####[facility] LABORATORYCLIA [id number] [address] WBC (Bld) [#/Vol] 8.30 10*3/uL Normal 3.70-11.00 [facility] Comment on above: Order Comment: Speci men Type: BLOOD SPECIMENOrdering Facility: [facility] Address: [address] [place] [address] Performed By: #### 5 7021-8 ####[facility] LABORATORYCLIA [id number] [address] Comprehensive metabolic 2000 panelon 04-03-2022 Albumin [Mass/Vol] 3.5 g/dL Low 3.9-4.9 [facility] Comment on above: Order Comment: Speci men Type: BLOOD SPECIMENOrdering Facility: [facility] Address: [address] [place] [address] Performed By: #### 2 4323-8 ####[facility] LABORATORYCLIA [id number] [address] ALP [Catalytic activity/Vol] 77 U/L Normal 34-123 [facility] Comment on above: Order Comment: Speci men Type: BLOOD SPECIMENOrdering Facility: [facility] Address: [address] [place] [address] Performed By: #### 2 4323-8 ####[facility] LABORATORYCLIA [id number] [address] ALT With P-5'-P [Catalytic activity/Vol] 22 U/L Normal 7-38 [facility] Comment on above: Order Comment: Speci men Type: BLOOD SPECIMENOrdering Facility: [facility] Address: [address] [place] [address] Performed By: #### 2 4323-8 ####[facility] LABORATORYCLIA [id number] [address] [place] [facility] Anion gap [Moles/Vol] 11 mmol/L Normal 9-18 [facility] Comment on above: Order Comment: Speci men Type: BLOOD SPECIMENOrdering Facility: [facility] Address: [address] [place] [address] Performed By: #### 2 4323-8 ####[facility] LABORATORYCLIA [id number] [place] [address] [place] AST With P-5'-P [Catalytic activity/Vol] Normal [facility] Comment on above: Order Comment: Speci men Type: BLOOD SPECIMENOrdering Facility: [facility] Address: [address] [place] [address] Result Comment: Unab le to assay due to interference from hemolysis. Suggest reorder as clinically indicated. Performed By: #### 2 4323-8 ####[facility] LABORATORYCLIA [id number] [address] [place] Bilirubin [Mass/Vol] 0.4 mg/dL Normal 0.2-1.3 [facility] Comment on above: Order Comment: Speci men Type: BLOOD SPECIMENOrdering Facility: [facility] Address: [address] [place] [address] Performed By: #### 2 4323-8 ####[facility] LABORATORYCLIA [id number] [address] Calcium [Mass/Vol] 9.4 mg/dL Normal 8.5-10.2 [facility] Comment on above: Order Comment: Speci men Type: BLOOD SPECIMENOrdering Facility: [facility] Address: [address] [place] [address] Performed By: #### 2 4323-8 ####[facility] LABORATORYCLIA [id number] [address] [place] Chloride [Moles/Vol] 107 mmol/L High 97-105 [facility] Comment on above: Order Comment: Speci men Type: BLOOD SPECIMENOrdering Facility: [facility] Address: [address] [place] [address] Performed By: #### 2 4323-8 ####[facility] LABORATORYCLIA [id number] [address] [place] CO2 [Moles/Vol] 27 mmol/L Normal 22-30 [facility] Comment on above: Order Comment: Speci men Type: BLOOD SPECIMENOrdering Facility: [facility] Address: [address] [place] [address] Performed By: #### 2 4323-8 ####[facility] [id number] [address] Creatinine [Mass/Vol] 0.36 mg/dL Low 0.58-0.96 [facility] Comment on above: Order Comment: Speci men Type: BLOOD SPECIMENOrdering Facility: [facility] Address: [address] [place] [address] Performed By: #### 2 4323-8 ####[facility] LABORATORYCLIA [id number] [address] ESTIMATED GLOMERULAR FILTRATION RATE 111 mL/min/1.73m??? Normal >=60 [facility] Comment on above: Order Comment: Speci men Type: BLOOD SPECIMENOrdering Facility: [facility] Address: [address] [place] [address] Result Comment: Ameena mated Glomerular Filtration Rate [...] actual GFR. Performed By: #### 2 4323-8 ####[facility] LABORATORYCLIA [id number] [address] Glucose [Mass/Vol] 138 mg/dL High 74-99 [facility] Comment on above: Order Comment: Speci men Type: BLOOD SPECIMENOrdering Facility: [facility] Address: [address] [place] [address] Result Comment: The [place] Diabetes Association (ADA) provides guidance for cutoff [...] Standards of Medical Care in Diabetes 2016, [employer]. Diabetes Care. 2016.39(Suppl 1). Performed By: #### 2 4323-8 ####[facility] LABORATORYCLIA [id number] [place] [address] [place] Potassium [Moles/Vol] 4.2 mmol/L Normal 3.7-5.1 [facility] Comment on above: Order Comment: Lauren men Type: BLOOD SPECIMENOrdering Facility: [facility] Address: [address] [place] [address] Performed By: #### 2 4323-8 ####[facility] LABORATORYCLIA [id number] [place] [address] [place] Protein [Mass/Vol] 6.5 g/dL Normal 6.3-8.0 [facility] Comment on above: Order Comment: Speci men Type: BLOOD SPECIMENOrdering Facility: [facility] Address: [address] [place] [address] Performed By: #### 2 4323-8 ####[facility] LABORATORYCLIA [id number] [place] [address] [place] Sodium [Moles/Vol] 145 mmol/L High 136-144 [facility] Comment on above: Order Comment: Speci men Type: BLOOD SPECIMENOrdering Facility: [facility] Address: [address] [place] [address] Performed By: #### 2 4323-8 ####[facility] LABORATORYCLIA [id number] [address] [place] Urea nitrogen [Mass/Vol] 16 mg/dL Normal 7-21 [facility] Comment on above: Order Comment: Speci men Type: BLOOD SPECIMENOrdering Facility: [facility] Address: [address] [place] [address] Performed By: #### 2 4323-8 ####[facility] LABORATORYCLIA [id number] [address] [place] THERAPY NTon 04-03-2022 THERAPY NT Normal [facility] THERAPY NT Normal [facility] THERAPY NT Normal [facility] US DVT UPPER BILon US DVT UPPER JOSE Normal [facility] CASE MANAGEMon 04-02-2022 CASE MANAGEM Normal [facility] CBC W Auto Differential pane l (Bld)on 04-02-2022 Basophils (Bld) [#/Vol] 0.04 10*3/uL Normal <0.11 [facility] Comment on above: Order Comment: Speci men Type: BLOOD SPECIMENOrdering Facility: [facility] Address: [address] [place] [address] Performed By: #### 5 7021-8 ####[facility] LABORATORYCLIA [id number] [address] [place] Basophils/100 WBC (Bld) 0.5 % Normal [facility] Comment on above: Order Comment: Speci men Type: BLOOD SPECIMENOrdering Facility: [facility] Address: [address] [place] [address] Performed By: #### 5 7021-8 ####[facility] LABORATORYCLIA [id number] [address] [place] Differential cell count method Nom (Bld) Auto Normal [facility] Comment on above: Order Comment: Speci men Type: BLOOD SPECIMENOrdering Facility: [facility] Address: [address] [place] [address] Performed By: #### 5 7021-8 ####[facility] LABORATORYCLIA [id number] [address] Eosinophils (Bld) [#/Vol] 0.06 10*3/uL Normal <0.46 [facility] Comment on above: Order Comment: Speci men Type: BLOOD SPECIMENOrdering Facility: [facility] Address: [address] [place] [address] Performed By: #### 5 7021-8 ####[facility] LABORATORYCLIA [id number] [address] Eosinophils/100 WBC (Bld) 0.8 % Normal [facility] Comment on above: Order Comment: Speci men Type: BLOOD SPECIMENOrdering Facility: [facility] Address: [address] [place] [address] Performed By: #### 5 7021-8 ####[facility] LABORATORYCLIA [id number] [address] Erythrocyte distribution width (RBC) [Ratio] 19.0 % High 11.5-15.0 [facility] Comment on above: Order Comment: Speci men Type: BLOOD SPECIMENOrdering Facility: [facility] Address: [address] [place] [address] Performed By: #### 5 7021-8 ####[facility] LABORATORYCLIA [id number] [address] Hematocrit (Bld) [Volume fraction] 32.8 % Low 36.0-46.0 [facility] Comment on above: Order Comment: Speci men Type: BLOOD SPECIMENOrdering Facility: [facility] Address: [address] [place] [address] Performed By: #### 5 7021-8 ####[facility] LABORATORYCLIA [id number] [address] [place] Hemoglobin (Bld) [Mass/Vol] 10.3 g/dL Low 11.5-15.5 [facility] Comment on above: Order Comment: Speci men Type: BLOOD SPECIMENOrdering Facility: [facility] Address: [address] [place] [address] Performed By: #### 5 7021-8 ####[facility] LABORATORYCLIA [id number] [address] IMMATURE GRAN % 0.4 % Normal [facility] Comment on above: Order Comment: Speci men Type: BLOOD SPECIMENOrdering Facility: [facility] Address: [address] [place] [address] Performed By: #### 5 7021-8 ####[facility] LABORATORYCLIA [id number] [address] IMMATURE GRAN ABS 0.03 k/uL Normal <0.10 [facility] Comment on above: Order Comment: Speci men Type: BLOOD SPECIMENOrdering Facility: [facility] Address: [address] [place] [address] Performed By: #### 5 7021-8 ####[facility] LABORATORYCLIA [id number] [address] [place] Lymphocytes (Bld) [#/Vol] 1.27 10*3/uL Normal 1.00-4.0 0 [facility] Comment on above: Order Comment: Speci men Type: BLOOD SPECIMENOrdering Facility: [facility] Address: [address] [place] [address] Performed By: #### 5 7021-8 ####[facility] LABORATORYCLIA [id number] [address] Lymphocytes/100 WBC (Bld) 17.3 % Normal [facility] Comment on above: Order Comment: Speci men Type: BLOOD SPECIMENOrdering Facility: [facility] Address: [address] [place] [address] Performed By: #### 5 7021-8 ####[facility] LABORATORYCLIA [id number] [address] MCH (RBC) [Entitic mass] 29.9 pg Normal 26.0-34.0 [facility] Comment on above: Order Comment: Speci men Type: BLOOD SPECIMENOrdering Facility: [facility] Address: [address] [place] [address] Performed By: #### 5 7021-8 ####[facility] LABORATORYCLIA [id number] [address] [place] MCHC (RBC) [Mass/Vol] 31.4 g/dL Normal 30.5-36.0 [facility] Comment on above: Order Comment: Speci men Type: BLOOD SPECIMENOrdering Facility: [facility] Address: [address] [place] [address] Performed By: #### 5 7021-8 ####[facility] LABORATORYCLIA [id number] [address] MCV (RBC) [Entitic vol] 95.1 fL Normal 80.0-100.0 [facility] Comment on above: Order Comment: Speci men Type: BLOOD SPECIMENOrdering Facility: [facility] Address: [address] [place] [address] Performed By: #### 5 7021-8 ####[facility] LABORATORYCLIA [id number] [address] [place] Monocytes (Bld) [#/Vol] 0.91 10*3/uL High <0.87 [facility] Comment on above: Order Comment: Speci men Type: BLOOD SPECIMENOrdering Facility: [facility] Address: [address] [place] [address] Performed By: #### 5 7021-8 ####[facility] LABORATORYCLIA [id number] [address] Monocytes/100 WBC (Bld) 12.4 % Normal [facility] Comment on above: Order Comment: Speci men Type: BLOOD SPECIMENOrdering Facility: [facility] Address: [address] [address] Performed By: #### 5 7021-8 ####[facility] LABORATORYCLIA [id number] [address] [place] Neutrophils (Bld) [#/Vol] 5.05 10*3/uL Normal 1.45-7.5 0 [facility] Comment on above: Order Comment: Speci men Type: BLOOD SPECIMENOrdering Facility: [facility] Address: [address] [place] [address] Performed By: #### 5 7021-8 ####[facility] LABORATORYCLIA [id number] [address] Neutrophils/100 WBC (Bld) 68.6 % Normal [facility] Comment on above: Order Comment: Speci men Type: BLOOD SPECIMENOrdering Facility: [facility] Address: [address] [place] [address] Performed By: #### 5 7021-8 ####[facility] LABORATORYCLIA [id number] [address] [place] Nucleated RBC (Bld) [#/Vol] 10*3/uL Normal <0.01 [facility] Comment on above: Order Comment: Speci men Type: BLOOD SPECIMENOrdering Facility: [facility] Address: [address] [place] [address] Performed By: #### 5 7021-8 ####[facility] LABORATORYCLIA [id number] [address] [place] Nucleated RBC/100 WBC (Bld) [Ratio] 0.0 /100 WBC Normal [facility] Comment on above: Order Comment: Speci men Type: BLOOD SPECIMENOrdering Facility: [facility] Address: [address] [place] [address] Performed By: #### 5 7021-8 ####[facility] LABORATORYCLIA [id number] [address] [place] Platelet mean volume (Bld) [Entitic vol] 8.9 fL Low 9.0-12.7 [facility] Comment on above: Order Comment: Speci men Type: BLOOD SPECIMENOrdering Facility: [facility] Address: [address] [place] [address] Performed By: #### 5 7021-8 ####[facility] LABORATORYCLIA [id number] [address] [place] Platelets (Bld) [#/Vol] 332 10*3/uL Normal 150-400 [facility] Comment on above: Order Comment: Speci men Type: BLOOD SPECIMENOrdering Facility: [facility] Address: [address] [place] [address] Performed By: #### 5 7021-8 ####[facility] LABORATORYCLIA [id number] [address] STATES OF [facility] RBC (Bld) [#/Vol] 3.45 10*6/uL Low 3.90-5.20 [facility] Comment on above: Order Comment: Speci men Type: BLOOD SPECIMENOrdering Facility: [facility] Address: [address] [place] [address] Performed By: #### 5 7021-8 ####[facility] LABORATORYCLIA [id number] [address] WBC (Bld) [#/Vol] 7.36 10*3/uL Normal 3.70-11.00 [facility] Comment on above: Order Comment: Speci men Type: BLOOD SPECIMENOrdering Facility: [facility] Address: [address] [place] [address] Performed By: #### 5 7021-8 ####[facility] LABORATORYCLIA [id number] [address] [place] CONSULTon 04-02-2022 CONSULT Normal [facility] CT BRAIN WO IVCONon 04-02-20 CT BRAIN WO IVCON Normal [facility] Comprehensive metabolic 2000 panelon 04-02-2022 Albumin [Mass/Vol] 3.8 g/dL Low 3.9-4.9 [facility] Comment on above: Order Comment: Speci men Type: BLOOD SPECIMENOrdering Facility: [facility] Address: [address] [address] Performed By: #### 2 4323-8, 2776-08, ####[facility] LABORATORYCLIA [id number] [address] STATES OF [facility] ALP [Catalytic activity/Vol] 80 U/L Normal 34-123 [facility] Comment on above: Order Comment: Speci men Type: BLOOD SPECIMENOrdering Facility: [facility] Address: [address] [place] [address] Performed By: #### 2 4323-8, 2776-08, ####[facility] LABORATORYCLIA [id number] [address] STATES [place] [facility] ALT With P-5'-P [Catalytic activity/Vol] 14 U/L Normal 7-38 [facility] Comment on above: Order Comment: Speci men Type: BLOOD SPECIMENOrdering Facility: [facility] Address: [address] [place] [address] Performed By: #### 2 4323-8, 2776-08, ####[facility] LABORATORYCLIA [id number] [address] STATES OF [facility] Anion gap [Moles/Vol] 11 mmol/L Normal 9-18 [facility] Comment on above: Order Comment: Speci men Type: BLOOD SPECIMENOrdering Facility: [facility] Address: [address] [address] Performed By: #### 2 4323-8, 2776-08, ####[facility] LABORATORYCLIA [id number] [address] STATES OF [facility] AST With P-5'-P [Catalytic activity/Vol] 14 U/L Normal 13-35 [facility] Comment on above: Order Comment: Speci men Type: BLOOD SPECIMENOrdering Facility: [facility] Address: [address] [address] Performed By: #### 2 4323-8, 2776-08, ####[facility] LABORATORYCLIA [id number] [place] [address] [place] Bilirubin [Mass/Vol] 0.4 mg/dL Normal 0.2-1.3 [facility] Comment on above: Order Comment: Speci men Type: BLOOD SPECIMENOrdering Facility: [facility] Address: [address] [place] [address] Performed By: #### 2 4323-8, 2776-08, ####[facility] LABORATORYCLIA [id number] [place] [address] [place] Calcium [Mass/Vol] 9.3 mg/dL Normal 8.5-10.2 [facility] Comment on above: Order Comment: Speci men Type: BLOOD SPECIMENOrdering Facility: [facility] Address: [address] [place] [address] Performed By: #### 2 4323-8, 2776-08, ####[facility] LABORATORYCLIA [id number] [place] [address] [place] Chloride [Moles/Vol] 108 mmol/L High 97-105 [facility] Comment on above: Order Comment: Speci men Type: BLOOD SPECIMENOrdering Facility: [facility] Address: [address] [place] [address] Performed By: #### 2 4323-8, 2776-08, ####[facility] LABORATORYCLIA [id number] [place] [address] [place] CO2 [Moles/Vol] 27 mmol/L Normal 22-30 [facility] Comment on above: Order Comment: Speci men Type: BLOOD SPECIMENOrdering Facility: [facility] Address: [address] [place] [address] Performed By: #### 2 4323-8, 2776-08, ####[facility] LABORATORYCLIA [id number] [address] STATES OF [facility] Creatinine [Mass/Vol] 0.36 mg/dL Low 0.58-0.96 [facility] Comment on above: Order Comment: Lauren santana Type: BLOOD SPECIMENOrdering Facility: [facility] Address: [address] [place] [address] Performed By: #### 2 4323-8, 27702-15, ####[place] [facility] H[facility]PITALIA [id number] [address] ESTIMATED GLOMERULAR FILTRATION RATE 111 mL/min/1.73m??? Normal >=60 [facility] Comment on above: Order Comment: Lauren santana Type: BLOOD SPECIMENOrdering Facility: [facility] Address: [address] [place] [address] Result Comment: Ameena mated Glomerular Filtration Rate [...] actual GFR. Performed By: #### 2 4323-8, 27702-15, ####[place]PITALIA [id number] [address] [place] Glucose [Mass/Vol] 131 mg/dL High 74-99 [facility] Comment on above: Order Comment: Lauren santana Type: BLOOD SPECIMENOrdering Facility: [facility] Address: [address] [place], [place] [address] Result Comment: The [place] Diabetes Association (ADA) provides guidance for cutoff [...] Standards of Medical Care in Diabetes 2016, [place] [employer]. Diabetes Care. 2016.39(Suppl 1). Performed By: #### 2 4323-8, 2776-08, ####[facility] LABORATORYCLIA [id number] [place] [address] [place] Potassium [Moles/Vol] 3.8 mmol/L Normal 3.7-5.1 [facility] Comment on above: Order Comment: Speci men Type: BLOOD SPECIMENOrdering Facility: [facility] Address: [address] [place] [address] Performed By: #### 2 4323-8, 2776-08, ####[facility] LABORATORYCLIA [id number] [place] [address] [place] Protein [Mass/Vol] 6.7 g/dL Normal 6.3-8.0 [facility] Comment on above: Order Comment: Speci men Type: BLOOD SPECIMENOrdering Facility: [facility] Address: [address] [address] Performed By: #### 2 4323-8, 2776-08, ####[facility] LABORATORYCLIA [id number] [address] [place] Sodium [Moles/Vol] 146 mmol/L High 136-144 [facility] Comment on above: Order Comment: Speci men Type: BLOOD SPECIMENOrdering Facility: [facility] Address: [address] [address] Performed By: #### 2 4323-8, 2776-08, ####[facility] LABORATORYCLIA [id number] [address] [place] Urea nitrogen [Mass/Vol] 18 mg/dL Normal 7-21 [facility] Comment on above: Order Comment: Speci men Type: BLOOD SPECIMENOrdering Facility: [facility] Address: [address] [address] Performed By: #### 2 4323-8, 2777, ####[facility] LABORATORYCLIA [id number] [address] [place] Magnesium SerPl-mCncon 04-02 Magnesium [Mass/Vol] 2.0 mg/dL Normal 1.7-2.3 [facility] Comment on above: Order Comment: Speci men Type: BLOOD SPECIMENOrdering Facility: [facility] Address: [address] [place] [address] Performed By: #### 2 4323-8, 2777, ####[facility] LABORATORYCLIA [id number] [address] [place] Phosphate SerPl-mCncon 04-02 Phosphate [Mass/Vol] 3.2 mg/dL Normal 2.7-4.8 [facility] Comment on above: Order Comment: Speci men Type: BLOOD SPECIMENOrdering Facility: [facility] Address: [address] [place] [address] Performed By: #### 2 4323-8, 27702-15, ####[facility] LABORATORYCLIA [id number] [address] [place] ALLIED HEALTHon 04-01-2022 ALLIED HEALTH Normal [facility] CASE MANAGEMon 04-01-2022 CASE MANAGEM Normal [facility] CASE MGT INIT ASSESon 2021 CASE MGT INIT ASSES Normal [facility] CBC W Auto Differential pane l (Bld)on 04-01-2022 Basophils (Bld) [#/Vol] 0.03 10*3/uL Normal <0.11 [facility] Comment on above: Order Comment: Speci men Type: BLOOD SPECIMENOrdering Facility: [facility] Address: [address] [place] [address] Performed By: #### 5 7021-8 ####[facility] LABORATORYCLIA [id number] [address] STATES [facility] Basophils/100 WBC (Bld) 0.3 % Normal [facility] Comment on above: Order Comment: Speci men Type: BLOOD SPECIMENOrdering Facility: [facility] Address: [address] [place] [address] Performed By: #### 5 7021-8 ####[facility] LABORATORYCLIA [id number] [address] [place] Differential cell count method Nom (Bld) Auto Normal [facility] Comment on above: Order Comment: Speci men Type: BLOOD SPECIMENOrdering Facility: [facility] Address: [address] [place] [address] Performed By: #### 5 7021-8 ####[facility] LABORATORYCLIA [id number] [address] [place] Eosinophils (Bld) [#/Vol] 0.04 10*3/uL Normal <0.46 [facility] Comment on above: Order Comment: Speci men Type: BLOOD SPECIMENOrdering Facility: [facility] Address: [address] [place] [address] Performed By: #### 5 7021-8 ####[facility] LABORATORYCLIA [id number] [address] Eosinophils/100 WBC (Bld) 0.4 % Normal [facility] Comment on above: Order Comment: Speci men Type: BLOOD SPECIMENOrdering Facility: [facility] Address: [address] [place] [address] Performed By: #### 5 7021-8 ####[facility] LABORATORYCLIA [id number] [address] [place] Erythrocyte distribution width (RBC) [Ratio] 19.1 % High 11.5-15.0 [facility] Comment on above: Order Comment: Speci men Type: BLOOD SPECIMENOrdering Facility: [facility] Address: [address] [place] [address] Performed By: #### 5 7021-8 ####[facility] LABORATORYCLIA [id number] [address] Hematocrit (Bld) [Volume fraction] 32.6 % Low 36.0-46.0 [facility] Comment on above: Order Comment: Speci men Type: BLOOD SPECIMENOrdering Facility: [facility] Address: [address] [place] [address] Performed By: #### 5 7021-8 ####[facility] LABORATORYCLIA [id number] [address] Hemoglobin (Bld) [Mass/Vol] 10.2 g/dL Low 11.5-15.5 [facility] Comment on above: Order Comment: Speci men Type: BLOOD SPECIMENOrdering Facility: [facility] Address: [address] [place] [address] Performed By: #### 5 7021-8 ####[facility] LABORATORYCLIA [id number] [address] IMMATURE GRAN % 0.4 % Normal [facility] Comment on above: Order Comment: Speci men Type: BLOOD SPECIMENOrdering Facility: [facility] Address: [address] [place] [address] Performed By: #### 5 7021-8 ####[facility] LABORATORYCLIA [id number] [address] IMMATURE GRAN ABS 0.04 k/uL Normal <0.10 [facility] [facility] Comment on above: Order Comment: Speci men Type: BLOOD SPECIMENOrdering Facility: [facility] Address: [address] [place] [address] Performed By: #### 5 7021-8 ####[facility] LABORATORYCLIA [id number] [address] Lymphocytes (Bld) [#/Vol] 1.15 10*3/uL Normal 1.00-4.0 0 [facility] Comment on above: Order Comment: Speci men Type: BLOOD SPECIMENOrdering Facility: [facility] Address: [address] [place] [address] Performed By: #### 5 7021-8 ####[facility] LABORATORYCLIA [id number] [address] Lymphocytes/100 WBC (Bld) 11.9 % Normal [facility] Comment on above: Order Comment: Speci men Type: BLOOD SPECIMENOrdering Facility: [facility] Address: [address] [place] [address] Performed By: #### 5 7021-8 ####[facility] LABORATORYCLIA [id number] [address] MCH (RBC) [Entitic mass] 30.0 pg Normal 26.0-34.0 [facility] Comment on above: Order Comment: Speci men Type: BLOOD SPECIMENOrdering Facility: [facility] Address: [address] [place] [address] Performed By: #### 5 7021-8 ####[facility] LABORATORYCLIA [id number] [address] MCHC (RBC) [Mass/Vol] 31.3 g/dL Normal 30.5-36.0 [facility] Comment on above: Order Comment: Speci men Type: BLOOD SPECIMENOrdering Facility: [facility] Address: [address] [place] [address] Performed By: #### 5 7021-8 ####[facility] LABORATORYCLIA [id number] [address] MCV (RBC) [Entitic vol] 95.9 fL Normal 80.0-100.0 [facility] Comment on above: Order Comment: Speci men Type: BLOOD SPECIMENOrdering Facility: [facility] Address: [address] [place] [address] Performed By: #### 5 7021-8 ####[facility] LABORATORYCLIA [id number] [address] Monocytes (Bld) [#/Vol] 1.14 10*3/uL High <0.87 [facility] Comment on above: Order Comment: Speci men Type: BLOOD SPECIMENOrdering Facility: [facility] Address: [address] [place] [address] Performed By: #### 5 7021-8 ####[facility] LABORATORYCLIA [id number] [address] [place] Monocytes/100 WBC (Bld) 11.8 % Normal [facility] Comment on above: Order Comment: Speci men Type: BLOOD SPECIMENOrdering Facility: [facility] Address: [address] [place] [address] Performed By: #### 5 7021-8 ####[facility] LABORATORYCLIA [id number] [address] [place] Neutrophils (Bld) [#/Vol] 7.30 10*3/uL Normal 1.45-7.5 0 [facility] Comment on above: Order Comment: Speci men Type: BLOOD SPECIMENOrdering Facility: [facility] Address: [address] [place] [address] Performed By: #### 5 7021-8 ####[facility] LABORATORYCLIA [id number] [address] OF [facility] Neutrophils/100 WBC (Bld) 75.2 % Normal [facility] Comment on above: Order Comment: Speci men Type: BLOOD SPECIMENOrdering Facility: [facility] Address: [address] [place] [address] Performed By: #### 5 7021-8 ####[facility] LABORATORYCLIA [id number] [place] [address] [place] Nucleated RBC (Bld) [#/Vol] 10*3/uL Normal <0.01 [facility] Comment on above: Order Comment: Speci men Type: BLOOD SPECIMENOrdering Facility: [facility] Address: [address] [place] [address] Performed By: #### 5 7021-8 ####[facility] LABORATORYCLIA [id number] [place] [address] [place] Nucleated RBC/100 WBC (Bld) [Ratio] 0.0 /100 WBC Normal [facility] Comment on above: Order Comment: Speci men Type: BLOOD SPECIMENOrdering Facility: [facility] Address: [address] [place] [address] Performed By: #### 5 7021-8 ####[facility] LABORATORYCLIA [id number] [place] [address] [place] Platelet mean volume (Bld) [Entitic vol] 9.3 fL Normal 9.0-12.7 [facility] Comment on above: Order Comment: Speci men Type: BLOOD SPECIMENOrdering Facility: [facility] Address: [address] [place] [address] Performed By: #### 5 7021-8 ####[facility] LABORATORYCLIA [id number] [address] [place] Platelets (Bld) [#/Vol] 341 10*3/uL Normal 150-400 [facility] Comment on above: Order Comment: Speci men Type: BLOOD SPECIMENOrdering Facility: [facility] Address: [address] [place] [address] Performed By: #### 5 7021-8 ####[facility] LABORATORYCLIA [id number] [place] [address] [place] RBC (Bld) [#/Vol] 3.40 10*6/uL Low 3.90-5.20 [facility] Comment on above: Order Comment: Speci men Type: BLOOD SPECIMENOrdering Facility: [facility] Address: [address] [place] [address] Performed By: #### 5 7021-8 ####[facility] LABORATORYCLIA [id number] [address] [place] WBC (Bld) [#/Vol] 9.70 10*3/uL Normal 3.70-11.00 [facility] Comment on above: Order Comment: Speci men Type: BLOOD SPECIMENOrdering Facility: [facility] Address: [address] [place] [address] Performed By: #### 5 7021-8 ####[facility] LABORATORYCLIA [id number] [address] OF [facility] CONSULT PROGon 04-01-2022 CONSULT PROG Normal [facility] CT BRAIN WO IVCONon 04-01-[address] BRAIN WO IVCON Normal [facility] Comprehensive metabolic 2000 panelon 04-01-2022 Albumin [Mass/Vol] 3.8 g/dL Low 3.9-4.9 [facility] Comment on above: Order Comment: Speci men Type: BLOOD SPECIMENOrdering Facility: [facility] Address: [address] [place] [address] Performed By: #### 2 4323-8, , 2776-08 ####[facility] LABORATORYCLIA [id number] [address] STATES OF [facility] ALP [Catalytic activity/Vol] 77 U/L Normal 34-123 [facility] Comment on above: Order Comment: Speci men Type: BLOOD SPECIMENOrdering Facility: [facility] Address: [address] [place] [address] Performed By: #### 2 4323-8, , 2776-08 ####[facility] LABORATORYCLIA [id number] [address] [place] ALT With P-5'-P [Catalytic activity/Vol] 9 U/L Normal 7-38 [facility] Comment on above: Order Comment: Speci men Type: BLOOD SPECIMENOrdering Facility: [facility] Address: [address] [place] [address] Performed By: #### 2 4323-8, , 2776-08 ####[facility] LABORATORYCLIA [id number] [address] [place] Anion gap [Moles/Vol] 14 mmol/L Normal 9-18 [facility] Comment on above: Order Comment: Speci men Type: BLOOD SPECIMENOrdering Facility: [facility] Address: [address] [place] [address] Performed By: #### 2 4323-8, , 2776-08 ####[facility] LABORATORYCLIA [id number] [place] [address] [place] AST With P-5'-P [Catalytic activity/Vol] 13 U/L Normal 13-35 [facility] Comment on above: Order Comment: Speci men Type: BLOOD SPECIMENOrdering Facility: [facility] Address: [address] [place] [address] Performed By: #### 2 4323-8, , 2776-08 ####[facility] LABORATORYCLIA [id number] [place] [address] [place] Bilirubin [Mass/Vol] 0.3 mg/dL Normal 0.2-1.3 [facility] Comment on above: Order Comment: Speci men Type: BLOOD SPECIMENOrdering Facility: [facility] Address: [address] [place] [address] Performed By: #### 2 4323-8, , 2776-08 ####[facility] LABORATORYCLIA [id number] [place] [address] [place] Calcium [Mass/Vol] 9.4 mg/dL Normal 8.5-10.2 [facility] Comment on above: Order Comment: Speci men Type: BLOOD SPECIMENOrdering Facility: [facility] Address: [address] [place] [address] Performed By: #### 2 4323-8, , 2776-08 ####[facility] LABORATORYCLIA [id number] [place] [address] [place] Chloride [Moles/Vol] 109 mmol/L High 97-105 [facility] Comment on above: Order Comment: Speci men Type: BLOOD SPECIMENOrdering Facility: [facility] Address: [address] [place] [address] Performed By: #### 2 4323-8, , 2776-08 ####[facility] LABORATORYCLIA [id number] [place] [address] [place] [facility] CO2 [Moles/Vol] 23 mmol/L Normal 22-30 [facility] Comment on above: Order Comment: Speci men Type: BLOOD SPECIMENOrdering Facility: [facility] Address: [address] [place] [address] Performed By: #### 2 4323-8, , 2776-08 ####[facility] LABORATORYCLIA [id number] [place] [address] [place] [facility] Creatinine [Mass/Vol] 0.36 mg/dL Low 0.58-0.96 [facility] Comment on above: Order Comment: Speci men Type: BLOOD SPECIMENOrdering Facility: [facility] Address: [address] [place] [address] Performed By: #### 2 4323-8, , 2776-08 ####[facility] HOSPITALIA [id number] [address] STATES OF [facility] ESTIMATED GLOMERULAR FILTRATION RATE 111 mL/min/1.73m??? Normal >=60 [facility] Comment on above: Order Comment: Speci men Type: BLOOD SPECIMENOrdering Facility: [facility] Address: [address] [place] [address] Result Comment: Ameena mated Glomerular Filtration Rate [...] actual GFR. Performed By: #### 2 4323-8, 40165-1, 2776-08 ####[facility] LABORATORYCLIA [id number] [place] [address] [place] [facility] Glucose [Mass/Vol] 156 mg/dL High 74-99 [facility] Comment on above: Order Comment: Laurne santana Type: BLOOD SPECIMENOrdering Facility: [facility] Address: [address] [place] [address] Result Comment: The [place] [employer] (ADA) provides guidance for cutoff [...] Standards of Medical Care in Diabetes 2016, [employer]. Diabetes Care. 2016.39(Suppl 1). Performed By: #### 2 4323-8, , 2776-08 ####[facility] LABORATORYCLIA [id number] [place] [address] [place] Potassium [Moles/Vol] 3.6 mmol/L Low 3.7-5.1 [facility] Comment on above: Order Comment: Lauren santana Type: BLOOD SPECIMENOrdering Facility: [facility] Address: [address] [place] [address] Performed By: #### 2 4323-8, , 2776-08 ####[facility] LABORATORYCLIA [id number] [place] [address] [place] Protein [Mass/Vol] 6.7 g/dL Normal 6.3-8.0 [facility] Comment on above: Order Comment: Lauren santana Type: BLOOD SPECIMENOrdering Facility: [facility] Address: [address] [place] [address] Performed By: #### 2 4323-8, , 2776-08 ####[facility] LABORATORYCLIA [id number] [place] [address] [place] Sodium [Moles/Vol] 146 mmol/L High 136-144 [facility] Comment on above: Order Comment: Speci men Type: BLOOD SPECIMENOrdering Facility: [facility] Address: [address] [place] [address] Performed By: #### 2 4323-8, , 2776-08 ####[facility] LABORATORYCLIA [id number] [address] [place] [facility] Urea nitrogen [Mass/Vol] 19 mg/dL Normal 7-21 [facility] Comment on above: Order Comment: Speci men Type: BLOOD SPECIMENOrdering Facility: [facility] Address: [address] [place] [address] Performed By: #### 2 4323-8, , 2776-08 ####[facility] LABORATORYCLIA [id number] [address] Magnesium SerPl-mCncon 04-01 Magnesium [Mass/Vol] 2.2 mg/dL Normal 1.7-2.3 [facility] Comment on above: Order Comment: Speci men Type: BLOOD SPECIMENOrdering Facility: [facility] Address: [address] [place] [address] Performed By: #### 2 4328, , 2776-08 ####[facility] LABORATORYCLIA [id number] [address] OF [facility] NURSING PROGon 04-01-2022 NURSING PROG Normal [facility] NUTRITIONon 04-01-2022 NUTRITION Normal [facility] Phosphate SerPl-mCncon 04-01 Phosphate [Mass/Vol] 2.6 mg/dL Low 2.7-4.8 [facility] Comment on above: Order Comment: Speci men Type: BLOOD SPECIMENOrdering Facility: [facility] Address: [address] [place] [address] Performed By: #### 2 4323-8, , 2776-08 ####[facility] LABORATORYCLIA [id number] [address] [facility] THERAPY NTon 04-01-2022 THERAPY NT Normal [facility] CBC W Auto Differential pane l (Bld)on 03-31-2022 Basophils (Bld) [#/Vol] 10*3/uL Normal <0.11 [facility] Comment on above: Order Comment: Speci men Type: BLOOD SPECIMENOrdering Facility: [facility] Address: [address] [place] [address] Performed By: #### 5 7021-8 ####[facility] LABORATORYCLIA [id number] [address] Basophils/100 WBC (Bld) 0.2 % Normal [facility] Comment on above: Order Comment: Speci men Type: BLOOD SPECIMENOrdering Facility: [facility] Address: [address] [place] [address] Performed By: #### 5 7021-8 ####[facility] LABORATORYCLIA [id number] [address] Differential cell count method Nom (Bld) Auto Normal [facility] Comment on above: Order Comment: Speci men Type: BLOOD SPECIMENOrdering Facility: [facility] Address: [address] [place] [address] Performed By: #### 5 7021-8 ####[facility] LABORATORYCLIA [id number] [address] STATES OF [facility] Eosinophils (Bld) [#/Vol] 0.03 10*3/uL Normal <0.46 [facility] Comment on above: Order Comment: Speci men Type: BLOOD SPECIMENOrdering Facility: [facility] Address: [address] [place] [address] Performed By: #### 5 7021-8 ####[facility] LABORATORYCLIA [id number] [address] Eosinophils/100 WBC (Bld) 0.2 % Normal [facility] Comment on above: Order Comment: Speci men Type: BLOOD SPECIMENOrdering Facility: [facility] Address: [address] [address] Performed By: #### 5 7021-8 ####[facility] LABORATORYCLIA [id number] [address] Erythrocyte distribution width (RBC) [Ratio] 19.3 % High 11.5-15.0 [facility] Comment on above: Order Comment: Speci men Type: BLOOD SPECIMENOrdering Facility: [facility] Address: [address] [place] [address] Performed By: #### 5 7021-8 ####[facility] LABORATORYCLIA [id number] [address] Hematocrit (Bld) [Volume fraction] 32.7 % Low 36.0-46.0 [facility] Comment on above: Order Comment: Speci men Type: BLOOD SPECIMENOrdering Facility: [facility] Address: [address] [place] [address] Performed By: #### 5 7021-8 ####[facility] LABORATORYCLIA [id number] [address] [place] Hemoglobin (Bld) [Mass/Vol] 10.1 g/dL Low 11.5-15.5 [facility] Comment on above: Order Comment: Speci men Type: BLOOD SPECIMENOrdering Facility: [facility] Address: [address] [place] [address] Performed By: #### 5 7021-8 ####[facility] LABORATORYCLIA [id number] [address] IMMATURE GRAN % 0.6 % Normal [facility] Comment on above: Order Comment: Speci men Type: BLOOD SPECIMENOrdering Facility: [facility] Address: [address] [place] [address] Performed By: #### 5 7021-8 ####[facility] LABORATORYCLIA [id number] [address] IMMATURE GRAN ABS 0.08 k/uL Normal <0.10 [facility] Comment on above: Order Comment: Speci men Type: BLOOD SPECIMENOrdering Facility: [facility] Address: [address] [place] [address] Performed By: #### 5 7021-8 ####[facility] LABORATORYCLIA [id number] [address] OF [facility] Lymphocytes (Bld) [#/Vol] 1.13 10*3/uL Normal 1.00-4.0 0 [facility] Comment on above: Order Comment: Speci men Type: BLOOD SPECIMENOrdering Facility: [facility] Address: [address] [place] [address] Performed By: #### 5 7021-8 ####[facility] LABORATORYCLIA [id number] [address] Lymphocytes/100 WBC (Bld) 9.1 % Normal [facility] Comment on above: Order Comment: Speci men Type: BLOOD SPECIMENOrdering Facility: [facility] Address: [address] [place] [address] Performed By: #### 5 7021-8 ####[facility] LABORATORYCLIA [id number] [address] [place] MCH (RBC) [Entitic mass] 29.9 pg Normal 26.0-34.0 [facility] Comment on above: Order Comment: Speci men Type: BLOOD SPECIMENOrdering Facility: [facility] Address: [address] [place] [address] Performed By: #### 5 7021-8 ####[facility] LABORATORYCLIA [id number] [address] [place] MCHC (RBC) [Mass/Vol] 30.9 g/dL Normal 30.5-36.0 [facility] Comment on above: Order Comment: Speci men Type: BLOOD SPECIMENOrdering Facility: [facility] Address: [address] [place] [address] Performed By: #### 5 7021-8 ####[facility] LABORATORYCLIA [id number] [address] [place] MCV (RBC) [Entitic vol] 96.7 fL Normal 80.0-100.0 [facility] Comment on above: Order Comment: Speci men Type: BLOOD SPECIMENOrdering Facility: [facility] Address: [address] [place] [address] Performed By: #### 5 7021-8 ####[facility] LABORATORYCLIA [id number] [place] [address] [place] Monocytes (Bld) [#/Vol] 1.34 10*3/uL High <0.87 [facility] Comment on above: Order Comment: Speci men Type: BLOOD SPECIMENOrdering Facility: [facility] Address: [address] [place] [address] Performed By: #### 5 7021-8 ####[facility] LABORATORYCLIA [id number] [address] [place] Monocytes/100 WBC (Bld) 10.9 % Normal [facility] Comment on above: Order Comment: Speci men Type: BLOOD SPECIMENOrdering Facility: [facility] Address: [address] [place] [address] Performed By: #### 5 7021-8 ####[facility] LABORATORYCLIA [id number] [address] [place] Neutrophils (Bld) [#/Vol] 9.75 10*3/uL High 1.45-7.5 0 [facility] Comment on above: Order Comment: Speci men Type: BLOOD SPECIMENOrdering Facility: [facility] Address: [address] [place] [address] Performed By: #### 5 7021-8 ####[facility] LABORATORYCLIA [id number] [address] [place] Neutrophils/100 WBC (Bld) 79.0 % Normal [facility] Comment on above: Order Comment: Speci men Type: BLOOD SPECIMENOrdering Facility: [facility] Address: [address] [place] [address] Performed By: #### 5 7021-8 ####[facility] LABORATORYCLIA [id number] [address] Nucleated RBC (Bld) [#/Vol] 10*3/uL Normal <0.01 [facility] Comment on above: Order Comment: Speci men Type: BLOOD SPECIMENOrdering Facility: [facility] Address: [address] [place] [address] Performed By: #### 5 7021-8 ####[facility] LABORATORYCLIA [id number] [address] [place] Nucleated RBC/100 WBC (Bld) [Ratio] 0.0 /100 WBC Normal [facility] Comment on above: Order Comment: Speci men Type: BLOOD SPECIMENOrdering Facility: [facility] Address: [address] [place] [address] Performed By: #### 5 7021-8 ####[facility] LABORATORYCLIA [id number] [address] [place] Platelet mean volume (Bld) [Entitic vol] 9.3 fL Normal 9.0-12.7 [facility] Comment on above: Order Comment: Speci men Type: BLOOD SPECIMENOrdering Facility: [facility] Address: [address] [place] [address] Performed By: #### 5 7021-8 ####[facility] LABORATORYCLIA [id number] [address] [place] Platelets (Bld) [#/Vol] 312 10*3/uL Normal 150-400 [facility] Comment on above: Order Comment: Speci men Type: BLOOD SPECIMENOrdering Facility: [facility] Address: [address] [place], [place] [address] Performed By: #### 5 7021-8 ####[facility] LABORATORYCLIA [id number] [address] [place] RBC (Bld) [#/Vol] 3.38 10*6/uL Low 3.90-5.20 [facility] Comment on above: Order Comment: Speci men Type: BLOOD SPECIMENOrdering Facility: [facility] Address: [address] [place] [address] Performed By: #### 5 7021-8 ####[facility] LABORATORYCLIA [id number] [address] WBC (Bld) [#/Vol] 12.35 10*3/uL High 3.70-11.00 [facility] Comment on above: Order Comment: Speci men Type: BLOOD SPECIMENOrdering Facility: [facility] Address: [address] [place] [address] Performed By: #### 5 7021-8 ####[facility] LABORATORYCLIA [id number] [address] Comprehensive metabolic 2000 panelon 03-31-2022 Albumin [Mass/Vol] 3.9 g/dL Normal 3.9-4.9 [facility] Comment on above: Order Comment: Speci men Type: BLOOD SPECIMENOrdering Facility: [facility] Address: [address] [place] [address] Performed By: #### 2 4323-8 ####[facility] LABORATORYCLIA [id number] [address] ALP [Catalytic activity/Vol] 75 U/L Normal 34-123 [facility] Comment on above: Order Comment: Speci men Type: BLOOD SPECIMENOrdering Facility: [facility] Address: [address] [place] [address] Performed By: #### 2 4323-8 ####[facility] LABORATORYCLIA [id number] [address] ALT With P-5'-P [Catalytic activity/Vol] 9 U/L Normal 7-38 [facility] Comment on above: Order Comment: Speci men Type: BLOOD SPECIMENOrdering Facility: [facility] Address: [address] [place] [address] Performed By: #### 2 4323-8 ####[facility] LABORATORYCLIA [id number] [place] [address] [place] Anion gap [Moles/Vol] 16 mmol/L Normal 9-18 [facility] Comment on above: Order Comment: Speci men Type: BLOOD SPECIMENOrdering Facility: [facility] Address: [address] [place] [address] Performed By: #### 2 4323-8 ####[facility] LABORATORYCLIA [id number] [place] [address] [place] AST With P-5'-P [Catalytic activity/Vol] 9 U/L Low 13-35 [facility] Comment on above: Order Comment: Speci men Type: BLOOD SPECIMENOrdering Facility: [facility] Address: [address] [place] [address] Performed By: #### 2 4323-8 ####[facility] LABORATORYCLIA [id number] [address] STATES OF [facility] Bilirubin [Mass/Vol] 0.3 mg/dL Normal 0.2-1.3 [facility] Comment on above: Order Comment: Speci men Type: BLOOD SPECIMENOrdering Facility: [facility] Address: [address] [place] [address] Performed By: #### 2 4323-8 ####[facility] LABORATORYCLIA [id number] [address] [place] Calcium [Mass/Vol] 9.0 mg/dL Normal 8.5-10.2 [facility] Comment on above: Order Comment: Speci men Type: BLOOD SPECIMENOrdering Facility: [facility] Address: [address] [place] [address] Performed By: #### 2 4323-8 ####[facility] LABORATORYCLIA [id number] [place] [address] [place] Chloride [Moles/Vol] 109 mmol/L High 97-105 [facility] Comment on above: Order Comment: Speci men Type: BLOOD SPECIMENOrdering Facility: [facility] Address: [address] [place] [address] Performed By: #### 2 4323-8 ####[facility] LABORATORYCLIA [id number] [address] STATES [facility] CO2 [Moles/Vol] 17 mmol/L Low 22-30 [facility] Comment on above: Order Comment: Speci men Type: BLOOD SPECIMENOrdering Facility: [facility] Address: [address] [place] [address] Performed By: #### 2 4323-8 ####[facility] LABORATORYCLIA [id number] [address] STATES OF [facility] Creatinine [Mass/Vol] 0.36 mg/dL Low 0.58-0.96 [facility] Comment on above: Order Comment: Speci men Type: BLOOD SPECIMENOrdering Facility: [facility] Address: [address] [place] [address] Performed By: #### 2 4323-8 ####[facility] LABORATORYCLIA [id number] [address] ESTIMATED GLOMERULAR FILTRATION RATE 111 mL/min/1.73m??? Normal >=60 [facility] Comment on above: Order Comment: Speci men Type: BLOOD SPECIMENOrdering Facility: [facility] Address: [address] [place] [address] Result Comment: Ameena mated Glomerular Filtration Rate [...] actual GFR. Performed By: #### 2 4323-8 ####[facility] LABORATORYCLIA [id number] [address] [place] Glucose [Mass/Vol] 134 mg/dL High 74-99 [facility] Comment on above: Order Comment: Speci men Type: BLOOD SPECIMENOrdering Facility: [facility] Address: [address] [address] Result Comment: The [place] Diabetes Association (ADA) provides guidance for cutoff [...] Standards of Medical Care in Diabetes 2016, [employer]. Diabetes Care. 2016.39(Suppl 1). Performed By: #### 2 4323-8 ####[facility] LABORATORYCLIA [id number] [place] [address] [place] Potassium [Moles/Vol] 3.9 mmol/L Normal 3.7-5.1 [facility] Comment on above: Order Comment: Lauren [facility] Type: BLOOD SPECIMENOrdering Facility: [facility] Address: [address] [address] Performed By: #### 2 4323-8 ####[facility] LABORATORYCLIA [id number] [place] [address] [place] Protein [Mass/Vol] 6.5 g/dL Normal 6.3-8.0 [facility] Comment on above: Order Comment: Lauren [facility] Type: BLOOD SPECIMENOrdering Facility: [facility] Address: [address] [address] Performed By: #### 2 4323-8 ####[facility] LABORATORYCLIA [id number] [place] [address] [place] Sodium [Moles/Vol] 142 mmol/L Normal 136-144 [facility] Comment on above: Order Comment: Lauren [facility] Type: BLOOD SPECIMENOrdering Facility: [facility] Address: [address] [address] Performed By: #### 2 4323-8 ####[facility] LABORATORYCLIA [id number] [address] STATES [facility] Urea nitrogen [Mass/Vol] 16 mg/dL Normal 7-21 [facility] Comment on above: Order Comment: Speci men Type: BLOOD SPECIMENOrdering Facility: [facility] Address: [address] [place] [address] Performed By: #### 2 4323-8 ####[facility] LABORATORYCLIA [id number] [address] STATES OF [facility] Albumin [Mass/Vol] 4.1 g/dL Normal 3.9-4.9 [facility] Comment on above: Order Comment: Speci men Type: BLOOD SPECIMENOrdering Facility: [facility] Address: [address] [place] [address] Performed By: #### 2 4323-8, , 2776-08 ####[facility] LABORATORYCLIA [id number] [address] [place] ALP [Catalytic activity/Vol] 74 U/L Normal 34-123 [facility] Comment on above: Order Comment: Speci men Type: BLOOD SPECIMENOrdering Facility: [facility] Address: [address] [place] [address] Performed By: #### 2 4323-8, , 2776-08 ####[facility] LABORATORYCLIA [id number] [address] [place] ALT With P-5'-P [Catalytic activity/Vol] 9 U/L Normal 7-38 [facility] Comment on above: Order Comment: Speci men Type: BLOOD SPECIMENOrdering Facility: [facility] Address: [address] [place] [address] Performed By: #### 2 4323-8, , 2776- ####[facility] LABORATORYCLIA [id number] [address] Anion gap [Moles/Vol] 17 mmol/L Normal 9-18 [facility] Comment on above: Order Comment: Speci men Type: BLOOD SPECIMENOrdering Facility: [facility] Address: [address] [place] [address] Performed By: #### 2 4323-8, , 2776-08 ####[facility] LABORATORYCLIA [id number] [place] [address] [place] AST With P-5'-P [Catalytic activity/Vol] 9 U/L Low 13-35 [facility] Comment on above: Order Comment: Speci men Type: BLOOD SPECIMENOrdering Facility: [facility] Address: [address] [place] [address] Performed By: #### 2 4323-8, , 2776-08 ####[facility] LABORATORYCLIA [id number] [place] [address] [place] Bilirubin [Mass/Vol] 0.3 mg/dL Normal 0.2-1.3 [facility] Comment on above: Order Comment: Speci men Type: BLOOD SPECIMENOrdering Facility: [facility] Address: [address] [place] [address] Performed By: #### 2 4323-8, , 2776-08 ####[facility] LABORATORYCLIA [id number] [place] [address] [place] Calcium [Mass/Vol] 9.1 mg/dL Normal 8.5-10.2 [facility] Comment on above: Order Comment: Speci men Type: BLOOD SPECIMENOrdering Facility: [facility] Address: [address] [place] [address] Performed By: #### 2 4323-8, , 2776-08 ####[facility] LABORATORYCLIA [id number] [place] [address] [place] Chloride [Moles/Vol] 110 mmol/L High 97-105 [facility] Comment on above: Order Comment: Speci men Type: BLOOD SPECIMENOrdering Facility: [facility] Address: [address] [place] [address] Performed By: #### 2 4323-8, , 2776-08 ####[facility] [id number] [address] CO2 [Moles/Vol] 13 mmol/L Low 22-30 [facility] Comment on above: Order Comment: Speci men Type: BLOOD SPECIMENOrdering Facility: [facility] Address: [address] [place] [address] Performed By: #### 2 4323-8, , 2776-08 ####[facility] H[facility]PITALIA [id number] [address] Creatinine [Mass/Vol] 0.37 mg/dL Low 0.58-0.96 [facility] Comment on above: Order Comment: Speci men Type: BLOOD SPECIMENOrdering Facility: [facility] Address: [address] [place] [address] Performed By: #### 2 4323-8, , 2776-08 ####[place] H[facility]PITALIA [id number] [address] ESTIMATED GLOMERULAR FILTRATION RATE 111 mL/min/1.73m??? Normal >=60 [facility] Comment on above: Order Comment: Speci men Type: BLOOD SPECIMENOrdering Facility: [facility] Address: [address] [place] [address] Result Comment: Ameena mated Glomerular Filtration Rate [...] actual GFR. Performed By: #### 2 4323-8, 27037-9, 2776-08 ####[facility] LABORATORYCLIA [id number] [place] [address] [place] Glucose [Mass/Vol] 128 mg/dL High 74-99 [facility] Comment on above: Order Comment: Speci men Type: BLOOD SPECIMENOrdering Facility: [facility] Address: [address] [place] [address] Result Comment: The [place] Diabetes Association (ADA) provides guidance for cutoff [...] Standards of Medical Care in Diabetes 2016, [place] Diabetes [employer]. Diabetes Care. 2016.39(Suppl 1). Performed By: #### 2 4323-8, , 2776-08 ####[facility] LABORATORYCLIA [id number] [address] [place] Potassium [Moles/Vol] 4.1 mmol/L Normal 3.7-5.1 [facility] Comment on above: Order Comment: Lauren santana Type: BLOOD SPECIMENOrdering Facility: [facility] Address: [address] [place] [address] Performed By: #### 2 4323-8, , 2776-08 ####[facility] LABORATORYCLIA [id number] [address] STATES OF [facility] Protein [Mass/Vol] 6.8 g/dL Normal 6.3-8.0 [facility] Comment on above: Order Comment: Speci men Type: BLOOD SPECIMENOrdering Facility: [facility] Address: [address] [place] [address] Performed By: #### 2 4323-8, , 2776- ####[facility] LABORATORYCLIA [id number] [place] [address] [place] Sodium [Moles/Vol] 140 mmol/L Normal 136-144 [facility] Comment on above: Order Comment: Speci men Type: BLOOD SPECIMENOrdering Facility: [facility] Address: [address] [place] [address] Performed By: #### 2 4323-8, 21326-5, 2776- ####[facility] LABORATORYCLIA [id number] [place] [address] [place] Urea nitrogen [Mass/Vol] 15 mg/dL Normal 7-21 [facility] Comment on above: Order Comment: Speci men Type: BLOOD SPECIMENOrdering Facility: [facility] Address: [address] [place] [address] Performed By: #### 2 4323-8, , 2776-08 ####[facility] LABORATORYCLIA [id number] [address] [place] Magnesium SerPl-mCncon 03-31 Magnesium [Mass/Vol] 2.2 mg/dL Normal 1.7-2.3 [facility] Comment on above: Order Comment: Speci men Type: BLOOD SPECIMENOrdering Facility: [facility] Address: [address] [place] [address] Performed By: #### 2 4323-8, , 2776-08 ####[facility] LABORATORYCLIA [id number] [place] [address] [place] Phosphate SerPl-mCncon 03-31 Phosphate [Mass/Vol] 1.9 mg/dL Low 2.7-4.8 [facility] Comment on above: Order Comment: Speci men Type: BLOOD SPECIMENOrdering Facility: [facility] Address: [address] [place] [address] Performed By: #### 2 4323-8, 45115-6, 2776- ####[facility] LABORATORYCLIA [id number] [address] [id number] [place] ALLIED HEALTHon 03-30-2022 ALLIED HEALTH Normal [facility] ALLIED HEALTH Normal [facility] ALLIED HEALTH Normal [facility] ARTERIAL BLOOD GASESon 03-30 BASE DEFICIT, ARTERIAL -14 mmol/L Low -2-0 [facility] Comment on above: Order Comment: Speci men Type: ARTERIAL BLOOD SPECIMENOrdering Facility: [facility] Address: [address] [place] [address] Performed By: #### A LLBG ####[facility] LABORATORYCLIA [id number] [address] [place] Body temperature 99.86 [degF] Normal [facility] Comment on above: Order Comment: Speci men Type: ARTERIAL BLOOD SPECIMENOrdering Facility: [facility] Address: [address] [place] [address] Performed By: #### A LLBG ####[facility] LABORATORYCLIA [id number] [place] [address] [place] CALCIUM IONIZED, PH CORRECTED 1.17 mmol/L Normal 1.08-1.30 [facility] Comment on above: Order Comment: Speci men Type: ARTERIAL BLOOD SPECIMENOrdering Facility: [facility] Address: [address] [place] [address] Performed By: #### A LLBG ####[facility] LABORATORYCLIA [id number] [address] [place] Calcium.ionized (BldV) [Mass/Vol] 1.24 mmol/L Normal 1.08-1.30 [facility] Comment on above: Order Comment: Speci men Type: ARTERIAL BLOOD SPECIMENOrdering Facility: [facility] Address: [address] [place] [address] Performed By: #### A LLBG ####[facility] LABORATORYCLIA [id number] [address] [place] Carboxyhemoglobin (BldA) [Mass fraction] 2.1 % High 0.0-2.0 [facility] Comment on above: Order Comment: Speci men Type: ARTERIAL BLOOD SPECIMENOrdering Facility: [facility] Address: [address] [place] [address] Result Comment: Carb oxyhemoglobin Reference Range for Smokers: 2.0-8.0% Performed By: #### A LLBG ####[facility] LABORATORYCLIA [id number] [address] [place] CO2 (Bld) [Partial pressure] 23 mm Hg Low 36-46 [facility] Comment on above: Order Comment: Speci men Type: ARTERIAL BLOOD SPECIMENOrdering Facility: [facility] Address: [address] [place] [address] Performed By: #### A LLBG ####[facility] LABORATORYCLIA [id number] [address] [place] CO2 [Moles/Vol] 10 mmol/L Low 22-28 [facility] Comment on above: Order Comment: Speci men Type: ARTERIAL BLOOD SPECIMENOrdering Facility: [facility] Address: [address] [place] [address] Performed By: #### A LLBG ####[facility] LABORATORYCLIA [id number] [address] CO2 adjusted to patient's actual temperature (Bld) [Partial pressure] 24 mmHg Low 36-46 [facility] Comment on above: Order Comment: Speci men Type: ARTERIAL BLOOD SPECIMENOrdering Facility: [facility] Address: [address] [place] [address] Performed By: #### A LLBG ####[facility] LABORATORYCLIA [id number] [address] [place] Glucose [Mass/Vol] 94 mg/dL Normal 60-105 [facility] Comment on above: Order Comment: Speci men Type: ARTERIAL BLOOD SPECIMENOrdering Facility: [facility] Address: [address] [place] [address] Performed By: #### A LLBG ####[facility] LABORATORYCLIA [id number] [address] [place] HCO3 (Bld) [Moles/Vol] 11 mmol/L Low 22-26 [facility] Comment on above: Order Comment: Speci men Type: ARTERIAL BLOOD SPECIMENOrdering Facility: [facility] Address: [address] [place] [address] Performed By: #### A LLBG ####[facility] LABORATORYCLIA [id number] [address] [place] Hematocrit (Bld) [Volume fraction] 32.4 % Low 36.0-46.0 [facility] Comment on above: Order Comment: Speci men Type: ARTERIAL BLOOD SPECIMENOrdering Facility: [facility] Address: [address] [place] [address] Performed By: #### A LLBG ####[facility] LABORATORYCLIA [id number] [address] [place] Hemoglobin (Bld) [Mass/Vol] 10.5 g/dL Low 11.5-15.5 [facility] Comment on above: Order Comment: Speci men Type: ARTERIAL BLOOD SPECIMENOrdering Facility: [facility] Address: [address] [place] [address] Performed By: #### A LLBG ####[facility] LABORATORYCLIA [id number] [address] [place] Methemoglobin (Bld) [Mass fraction] 1.0 % Normal 0.0-1.5 [facility] Comment on above: Order Comment: Speci men Type: ARTERIAL BLOOD SPECIMENOrdering Facility: [facility] Address: [address] [place] [address] Performed By: #### A LLBG ####[facility] LABORATORYCLIA [id number] [address] O2 THERAPY RA=Room Air Normal [facility] Comment on above: Order Comment: Speci men Type: ARTERIAL BLOOD SPECIMENOrdering Facility: [facility] Address: [address] [place] [address] Performed By: #### A LLBG ####[facility] LABORATORYCLIA [id number] [address] [place] Oxygen (Bld) [Partial pressure] 83 mm Hg Low 85-95 [facility] Comment on above: Order Comment: Speci men Type: ARTERIAL BLOOD SPECIMENOrdering Facility: [facility] Address: [address] [address] Performed By: #### A LLBG ####[facility] LABORATORYCLIA [id number] [address] [place] Oxygen adjusted to patient's actual temperature (Bld) [Partial pressure] 86 mmHg Normal 85-95 [facility] Comment on above: Order Comment: Speci men Type: ARTERIAL BLOOD SPECIMENOrdering Facility: [facility] Address: [address] [place] [address] Performed By: #### A LLBG ####[facility] LABORATORYCLIA [id number] [address] [place] OXYGEN SATURATION, ARTERIAL 95 % Normal 95-98 [facility] Comment on above: Order Comment: Speci men Type: ARTERIAL BLOOD SPECIMENOrdering Facility: [facility] Address: [address] [place] [address] Performed By: #### A LLBG ####[facility] LABORATORYCLIA [id number] [address] [place] Oxyhemoglobin (BldA) [Mass fraction] 92 % Low 95-98 [facility] Comment on above: Order Comment: Speci men Type: ARTERIAL BLOOD SPECIMENOrdering Facility: [facility] Address: [address] [place] [address] Performed By: #### A LLBG ####[facility] LABORATORYCLIA [id number] [place] [address] [place] pH (Bld) 7.30 [pH] Low 7.35-7.45 [facility] Comment on above: Order Comment: Speci men Type: ARTERIAL BLOOD SPECIMENOrdering Facility: [facility] Address: [address] [place] [address] Performed By: #### A LLBG ####[facility] LABORATORYCLIA [id number] [address] [place] pH adjusted to patient's actual temperature (Bld) 7.29 Low 7.35-7.45 [facility] Comment on above: Order Comment: Speci men Type: ARTERIAL BLOOD SPECIMENOrdering Facility: [facility] Address: [address] [place] [address] Performed By: #### A LLBG ####[facility] LABORATORYCLIA [id number] [address] [place] Potassium [Moles/Vol] 4.1 mmol/L Normal 3.5-5.0 [facility] Comment on above: Order Comment: Speci men Type: ARTERIAL BLOOD SPECIMENOrdering Facility: [facility] Address: [address] [place] [address] Performed By: #### A LLBG ####[facility] LABORATORYCLIA [id number] [address] [place] Sodium [Moles/Vol] 139 mmol/L Normal 136-144 [facility] Comment on above: Order Comment: Speci men Type: ARTERIAL BLOOD SPECIMENOrdering Facility: [facility] Address: [address] [place] [address] Performed By: #### A LLBG ####[facility] LABORATORYCLIA [id number] [place] [address] [place] Ammonia Plas-sCncon 03-30-20 22 Ammonia (P) [Moles/Vol] 21 umol/L Normal 11-51 [facility] Comment on above: Order Comment: Speci men Type: BLOOD SPECIMENOrdering Facility: [facility] Address: [address] [place] [address] Performed By: #### 1 6362-6 ####[facility] LABORATORYCLIA [id number] [place] [address] [place] Basic metabolic 2000 panelon 03-30-2022 Anion gap [Moles/Vol] 21 mmol/L High 9-18 [facility] Comment on above: Order Comment: Speci men Type: BLOOD SPECIMENOrdering Facility: [facility] Address: [address] [place] [address] Performed By: #### 3 3959-8, 03299-5, 13659-6, 2157-01, 2776-08 ####[facility] LABORATORYCLIA [id number] [place] [address] [place] Calcium [Mass/Vol] 8.7 mg/dL Normal 8.5-10.2 [facility] Comment on above: Order Comment: Speci men Type: BLOOD SPECIMENOrdering Facility: [facility] Address: [address] [place] [address] Performed By: #### 3 3959-8, 30555-7, 43466-4, 2157-01, 2776-08 ####[facility] [id number] [place] [address] [place] Chloride [Moles/Vol] 107 mmol/L High 97-105 [facility] [facility] Comment on above: Order Comment: Speci men Type: BLOOD SPECIMENOrdering Facility: [facility] Address: [address] [place] [address] Performed By: #### 3 3959-8, 18798-3, 84420-9, 2157-01, 2776-08 ####[facility] LABORATORYCLIA [id number] [place] [address] [place] CO2 [Moles/Vol] 11 mmol/L Low 22-30 [facility] Comment on above: Order Comment: Speci men Type: BLOOD SPECIMENOrdering Facility: [facility] Address: [address] [place] [address] Performed By: #### 3 3959-8, 02113-6, 41663-3, 2157-01, 2776-08 ####[facility] LABORATORYCLIA [id number] [place] [address] [place] Creatinine [Mass/Vol] 0.43 mg/dL Low 0.58-0.96 [facility] Comment on above: Order Comment: Speci men Type: BLOOD SPECIMENOrdering Facility: [facility] Address: [address] [address] Performed By: #### 3 3959-8, 25302-6, 21965-5, 7-6, 2777-1 ####[facility] [id number] [address] [place] ESTIMATED GLOMERULAR FILTRATION RATE 107 mL/min/1.73m??? Normal >=60 [facility] Comment on above: Order Comment: Lauren santana Type: BLOOD SPECIMENOrdering Facility: [facility] Address: [address] [address] Result Comment: Ameena mated Glomerular Filtration Rate [...] actual GFR. Performed By: #### 3 3959-8, 38749-5, 99851-8, 7-6, 2777-1 ####[facility] LABORATORYCLIA [id number] [place] [address] [place] Glucose [Mass/Vol] 90 mg/dL Normal 74-99 [facility] Comment on above: Order Comment: Lauren santana Type: BLOOD SPECIMENOrdering Facility: [facility] Address: [address] [address] Result Comment: The [place] Diabetes Association (ADA) provides guidance for cutoff [...] Standards of Medical Care in Diabetes 2016, [place] [employer]. Diabetes Care. 2016.39(Suppl 1). Performed By: #### 3 3959-8, 94710-8, 89686-2, 2157-01, 2776- ####[facility] LABORATORYCLIA [id number] [place] [address] [place] Potassium [Moles/Vol] 4.2 mmol/L Normal 3.7-5.1 [facility] Comment on above: Order Comment: Speci men Type: BLOOD SPECIMENOrdering Facility: [facility] Address: [address] [place] [address] Performed By: #### 3 3959-8, 70538-3, 86444-7, 2157-01, 2776-08 ####[facility] [id number] [address] STATES OF [facility] Sodium [Moles/Vol] 139 mmol/L Normal 136-144 [facility] Comment on above: Order Comment: Speci men Type: BLOOD SPECIMENOrdering Facility: [facility] Address: [address] [place] [address] Performed By: #### 3 3959-8, 27371-1, 91254-2, 2157-01, 2776-08 ####[facility] LABORATORYCLIA [id number] [address] [place] Urea nitrogen [Mass/Vol] 12 mg/dL Normal 7-21 [facility] Comment on above: Order Comment: Speci men Type: BLOOD SPECIMENOrdering Facility: [facility] Address: [address] [place] [address] Performed By: #### 3 3959-8, 57684-3, 90381-9, 2157-01, 2776-08 ####[facility] LABORATORYCLIA [id number] [address] [place] CBC W Auto Differential pane l (Bld)on 03-30-2022 Basophils (Bld) [#/Vol] 0.03 10*3/uL Normal <0.11 [facility] Comment on above: Order Comment: Speci men Type: BLOOD SPECIMENOrdering Facility: [facility] Address: [address] [place] [address] Performed By: #### 5 7021-8 ####[facility] LABORATORYCLIA [id number] [address] Basophils/100 WBC (Bld) 0.2 % Normal [facility] Comment on above: Order Comment: Speci men Type: BLOOD SPECIMENOrdering Facility: [facility] Address: [address] [place] [address] Performed By: #### 5 7021-8 ####[facility] LABORATORYCLIA [id number] [address] Differential cell count method Nom (Bld) Auto Normal [facility] Comment on above: Order Comment: Speci men Type: BLOOD SPECIMENOrdering Facility: [facility] Address: [address] [place] [address] Performed By: #### 5 7021-8 ####[facility] LABORATORYCLIA [id number] [address] STATES OF [facility] Eosinophils (Bld) [#/Vol] 10*3/uL Normal <0.46 [facility] Comment on above: Order Comment: Speci men Type: BLOOD SPECIMENOrdering Facility: [facility] Address: [address] [place] [address] Performed By: #### 5 7021-8 ####[facility] LABORATORYCLIA [id number] [address] Eosinophils/100 WBC (Bld) 0.0 % Normal [facility] Comment on above: Order Comment: Speci men Type: BLOOD SPECIMENOrdering Facility: [facility] Address: [address] [place] [address] Performed By: #### 5 7021-8 ####[facility]ORATORYCLIA [id number] [address] Erythrocyte distribution width (RBC) [Ratio] 19.4 % High 11.5-15.0 [facility] Comment on above: Order Comment: Speci men Type: BLOOD SPECIMENOrdering Facility: [facility] Address: [address] [place] [address] Performed By: #### 5 7021-8 ####[facility] LABORATORYCLIA [id number] [address] OF [facility] Hematocrit (Bld) [Volume fraction] 31.4 % Low 36.0-46.0 [facility] Comment on above: Order Comment: Speci men Type: BLOOD SPECIMENOrdering Facility: [facility] Address: [address] [place] [address] Performed By: #### 5 7021-8 ####[facility] LABORATORYCLIA [id number] [address] OF [facility] Hemoglobin (Bld) [Mass/Vol] 10.0 g/dL Low 11.5-15.5 [facility] Comment on above: Order Comment: Speci men Type: BLOOD SPECIMENOrdering Facility: [facility] Address: [address] [place] [address] Performed By: #### 5 7021-8 ####[facility] LABORATORYCLIA [id number] [address] IMMATURE GRAN % 0.5 % Normal [facility] Comment on above: Order Comment: Speci men Type: BLOOD SPECIMENOrdering Facility: [facility] Address: [address] [place] [address] Performed By: #### 5 7021-8 ####[facility] LABORATORYCLIA [id number] [address] IMMATURE GRAN ABS 0.07 k/uL Normal <0.10 [facility] Comment on above: Order Comment: Speci men Type: BLOOD SPECIMENOrdering Facility: [facility] Address: [address] [place] [address] Performed By: #### 5 7021-8 ####[facility] LABORATORYCLIA [id number] [address] OF [facility] Lymphocytes (Bld) [#/Vol] 1.05 10*3/uL Normal 1.00-4.0 0 [facility] Comment on above: Order Comment: Speci men Type: BLOOD SPECIMENOrdering Facility: [facility] Address: [address] [place] [address] Performed By: #### 5 7021-8 ####[facility] LABORATORYCLIA [id number] [address] Lymphocytes/100 WBC (Bld) 8.2 % Normal [facility] Comment on above: Order Comment: Speci men Type: BLOOD SPECIMENOrdering Facility: [facility] Address: [address] [place] [address] Performed By: #### 5 7021-8 ####[facility] LABORATORYCLIA [id number] [address] MCH (RBC) [Entitic mass] 30.3 pg Normal 26.0-34.0 [facility] Comment on above: Order Comment: Speci men Type: BLOOD SPECIMENOrdering Facility: [facility] Address: [address] [place] [address] Performed By: #### 5 7021-8 ####[facility] LABORATORYCLIA [id number] [address] STATES OF [facility] MCHC (RBC) [Mass/Vol] 31.8 g/dL Normal 30.5-36.0 [facility] Comment on above: Order Comment: Speci men Type: BLOOD SPECIMENOrdering Facility: [facility] Address: [address] [place] [address] Performed By: #### 5 7021-8 ####[facility] LABORATORYCLIA [id number] [address] MCV (RBC) [Entitic vol] 95.2 fL Normal 80.0-100.0 [facility] Comment on above: Order Comment: Speci men Type: BLOOD SPECIMENOrdering Facility: [facility] Address: [address] [address] Performed By: #### 5 7021-8 ####[facility] LABORATORYCLIA [id number] [place] [address] [place] Monocytes (Bld) [#/Vol] 1.48 10*3/uL High <0.87 [facility] Comment on above: Order Comment: Speci men Type: BLOOD SPECIMENOrdering Facility: [facility] Address: [address] [place] [address] Performed By: #### 5 7021-8 ####[facility] LABORATORYCLIA [id number] [address] [place] Monocytes/100 WBC (Bld) 11.6 % Normal [facility] Comment on above: Order Comment: Speci men Type: BLOOD SPECIMENOrdering Facility: [facility] Address: [address] [place] [address] Performed By: #### 5 7021-8 ####[facility]ORATORYCLIA [id number] [address] [place] Neutrophils (Bld) [#/Vol] 10.16 10*3/uL High 1.45-7. 50 [facility] Comment on above: Order Comment: Speci men Type: BLOOD SPECIMENOrdering Facility: [facility] Address: [address] [place] [address] Performed By: #### 5 7021-8 ####[facility]ORATORYCLIA [id number] [address] [place] Neutrophils/100 WBC (Bld) 79.5 % Normal [facility] Comment on above: Order Comment: Speci men Type: BLOOD SPECIMENOrdering Facility: [facility] Address: [address] [place] [address] Performed By: #### 5 7021-8 ####[facility] LABORATORYCLIA [id number] [place] [address] [place] Nucleated RBC (Bld) [#/Vol] 10*3/uL Normal <0.01 [facility] Comment on above: Order Comment: Speci men Type: BLOOD SPECIMENOrdering Facility: [facility] Address: [address] [place] [address] Performed By: #### 5 7021-8 ####[facility] LABORATORYCLIA [id number] [address] OF [facility] Nucleated RBC/100 WBC (Bld) [Ratio] 0.0 /100 WBC Normal [facility] Comment on above: Order Comment: Speci men Type: BLOOD SPECIMENOrdering Facility: [facility] Address: [address] [place] [address] Performed By: #### 5 7021-8 ####[facility] LABORATORYCLIA [id number] [address] [place] Platelet mean volume (Bld) [Entitic vol] 8.8 fL Low 9.0-12.7 [facility] Comment on above: Order Comment: Speci men Type: BLOOD SPECIMENOrdering Facility: [facility] Address: [address] [place] [address] Performed By: #### 5 7021-8 ####[facility] LABORATORYCLIA [id number] [address] [place] Platelets (Bld) [#/Vol] 302 10*3/uL Normal 150-400 [facility] Comment on above: Order Comment: Speci men Type: BLOOD SPECIMENOrdering Facility: [facility] Address: [address] [place], [place] [address] Performed By: #### 5 7021-8 ####[facility] LABORATORYCLIA [id number] [address] [place] RBC (Bld) [#/Vol] 3.30 10*6/uL Low 3.90-5.20 [facility] Comment on above: Order Comment: Speci men Type: BLOOD SPECIMENOrdering Facility: [facility] Address: [address] [place] [address] Performed By: #### 5 7021-8 ####[facility] LABORATORYCLIA [id number] [place] [address] [place] WBC (Bld) [#/Vol] 12.79 10*3/uL High 3.70-11.00 [facility] Comment on above: Order Comment: Speci men Type: BLOOD SPECIMENOrdering Facility: [facility] Address: [address] [place] [address] Performed By: #### 5 7021-8 ####[facility] LABORATORYCLIA [id number] [address] [place] CK SerPl-cCncon 03-30-2022 CK [Catalytic activity/Vol] 41 U/L Low 42-196 [facility] Comment on above: Order Comment: Speci men Type: BLOOD SPECIMENOrdering Facility: [facility] Address: [address] [place] [address] Performed By: #### 3 3959-8, 63525-1, 65978-4, 2157-6, 277-1 ####[facility] LABORATORYCLIA [id number] [address] [place] Comprehensive metabolic 2000 panelon 03-30-2022 Albumin [Mass/Vol] 4.0 g/dL Normal 3.9-4.9 [facility] Comment on above: Order Comment: Speci men Type: BLOOD SPECIMENOrdering Facility: [facility] Address: [address] [place] [address] Performed By: #### 2 4323-8, 2777-1, 28819-6 ####[facility] LABORATORYCLIA [id number] [address] [place] ALP [Catalytic activity/Vol] 73 U/L Normal 34-123 [facility] Comment on above: Order Comment: Speci men Type: BLOOD SPECIMENOrdering Facility: [facility] Address: [address] [place] [address] Performed By: #### 2 4323-8, 2777-1, 60505-5 ####[facility] LABORATORYCLIA [id number] [address] STATES OF [facility] ALT With P-5'-P [Catalytic activity/Vol] 9 U/L Normal 7-38 [facility] Comment on above: Order Comment: Speci men Type: BLOOD SPECIMENOrdering Facility: [facility] Address: [address] [place] [address] Performed By: #### 2 4323-8, 2777, ####[facility] LABORATORYCLIA [id number] [address] OF [facility] Anion gap [Moles/Vol] 19 mmol/L High 9-18 [facility] Comment on above: Order Comment: Speci men Type: BLOOD SPECIMENOrdering Facility: [facility] Address: [address] [place] [address] Performed By: #### 2 4323-8, 27702-15, ####[facility] LABORATORYCLIA [id number] [address] OF [facility] AST With P-5'-P [Catalytic activity/Vol] 9 U/L Low 13-35 [facility] Comment on above: Order Comment: Speci men Type: BLOOD SPECIMENOrdering Facility: [facility] Address: [address] [place] [address] Performed By: #### 2 4323-8, 27702-15, ####[facility] LABORATORYCLIA [id number] [address] STATES OF [facility] Bilirubin [Mass/Vol] 0.4 mg/dL Normal 0.2-1.3 [facility] Comment on above: Order Comment: Speci men Type: BLOOD SPECIMENOrdering Facility: [facility] Address: [address] [place] [address] Performed By: #### 2 4323-8, 27702-15, ####[facility] LABORATORYCLIA [id number] [address] Calcium [Mass/Vol] 8.3 mg/dL Low 8.5-10.2 [facility] Comment on above: Order Comment: Speci men Type: BLOOD SPECIMENOrdering Facility: [facility] Address: [address] [place] [address] Performed By: #### 2 4323-8, 2776-08, ####[facility] LABORATORYCLIA [id number] [place] [address] [place] Chloride [Moles/Vol] 103 mmol/L Normal 97-105 [facility] Comment on above: Order Comment: Speci men Type: BLOOD SPECIMENOrdering Facility: [facility] Address: [address] [place] [address] Performed By: #### 2 4323-8, 2776-08, ####[facility] LABORATORYCLIA [id number] [address] [place] CO2 [Moles/Vol] 16 mmol/L Low 22-30 [facility] Comment on above: Order Comment: Speci men Type: BLOOD SPECIMENOrdering Facility: [facility] Address: [address] [place] [address] Performed By: #### 2 4323-8, 2776-08, ####[facility] LABORATORYCLIA [id number] [address] STATES OF [facility] Creatinine [Mass/Vol] 0.37 mg/dL Low 0.58-0.96 [facility] Comment on above: Order Comment: Speci men Type: BLOOD SPECIMENOrdering Facility: [facility] Address: [address] [place] [address] Performed By: #### 2 4323-8, 2776-08, ####[facility] LABORATORYCLIA [id number] [address] ESTIMATED GLOMERULAR FILTRATION RATE 111 mL/min/1.73m??? Normal >=60 [facility] Comment on above: Order Comment: Speci men Type: BLOOD SPECIMENOrdering Facility: [facility] Address: [address] [id number] Result Comment: Ameena mated Glomerular Filtration Rate [...] actual GFR. Performed By: #### 2 4323-8, 2777, ####[facility] HOSPITALIA [id number] [place] [address] [place] Glucose [Mass/Vol] 94 mg/dL Normal 74-99 [facility] Comment on above: Order Comment: Lauren santana Type: BLOOD SPECIMENOrdering Facility: [facility] Address: [address] Result Comment: The [place] Diabetes [employer] (ADA) provides guidance for cutoff [...] Standards of Medical Care in Diabetes 2016, [place] [employer]. Diabetes Care. 2016.39(Suppl 1). Performed By: #### 2 4323-8, 2776-08, ####[facility] LABORATORYIA [id number] [place] [address] [place] Potassium [Moles/Vol] 3.6 mmol/L Low 3.7-5.1 [facility] Comment on above: Order Comment: Lauren santana Type: BLOOD SPECIMENOrdering Facility: [facility] Address: [address] [phone] Performed By: #### 2 4323-8, 2777, ####[facility] LABORATORYCLIA [id number] [place] [address] [place] Protein [Mass/Vol] 6.3 g/dL Normal 6.3-8.0 [facility] Comment on above: Order Comment: Speci men Type: BLOOD SPECIMENOrdering Facility: [facility] Address: [address] [place] [address] Performed By: #### 2 4323-8, 27702-15, ####[facility] LABORATORYCLIA [id number] [place] [address] [place] Sodium [Moles/Vol] 138 mmol/L Normal 136-144 [facility] Comment on above: Order Comment: Speci men Type: BLOOD SPECIMENOrdering Facility: [facility] Address: [address] [place] [address] Performed By: #### 2 4323-8, 2776-08, ####[facility] LABORATORYCLIA [id number] [address] [place] Urea nitrogen [Mass/Vol] 10 mg/dL Normal 7-21 [facility] Comment on above: Order Comment: Speci men Type: BLOOD SPECIMENOrdering Facility: [facility] Address: [address] [place] [address] Performed By: #### 2 4323-8, 2771, ####[facility] LABORATORYCLIA [id number] [address] [place] Hepatic function 2000 panelo n 03-30-2022 Albumin [Mass/Vol] 4.0 g/dL Normal 3.9-4.9 [facility] Comment on above: Order Comment: Speci men Type: BLOOD SPECIMENOrdering Facility: [facility] Address: [address] [place] [address] Performed By: #### 3 3959-8, 70853-8, 21604-2, 2157-6, 2776-1 ####[facility] LABORATORYCLIA [id number] [address] ALP [Catalytic activity/Vol] 76 U/L Normal 34-123 [facility] Comment on above: Order Comment: Speci men Type: BLOOD SPECIMENOrdering Facility: [facility] Address: [address] [place] [address] Performed By: #### 3 3959-8, 23536-9, 74370-4, 2156-6, 2777-1 ####[facility] LABORATORYCLIA [id number] [address] STATES OF [facility] ALT With P-5'-P [Catalytic activity/Vol] 8 U/L Normal 7-38 [facility] Comment on above: Order Comment: Speci men Type: BLOOD SPECIMENOrdering Facility: [facility] Address: [address] [place] [address] Performed By: #### 3 3959-8, 30280-6, 85144-9, 2157-01, 2776-1 ####[facility] [id number] [address] STATES OF [facility] AST With P-5'-P [Catalytic activity/Vol] 13 U/L Normal 13-35 [facility] Comment on above: Order Comment: Speci men Type: BLOOD SPECIMENOrdering Facility: [facility] Address: [address] [place] [address] Performed By: #### 3 3959-8, 38330-7, 22116-6, 2157-01, 2776-1 ####[facility] LABORATORYCLIA [id number] [address] [place] Bilirubin [Mass/Vol] 0.4 mg/dL Normal 0.2-1.3 [facility] Comment on above: Order Comment: Speci men Type: BLOOD SPECIMENOrdering Facility: [facility] Address: [address] [place] [address] Performed By: #### 3 3959-8, 65486-3, 57818-8, 2156-6, 2777-1 ####[facility] LABORATORYCLIA [id number] [place] [address] [place] Bilirubin.conjugated [Mass/Vol] mg/dL Normal <0.2 [facility] Comment on above: Order Comment: Speci men Type: BLOOD SPECIMENOrdering Facility: [facility] Address: [address] [place] [address] Performed By: #### 3 3959-8, 94623-3, 04335-6, 2157-6, 2777-1 ####[facility] LABORATORYCLIA [id number] [place] [address] [place] Protein [Mass/Vol] 6.9 g/dL Normal 6.3-8.0 [facility] Comment on above: Order Comment: Speci men Type: BLOOD SPECIMENOrdering Facility: [facility] Address: [address] [place] [address] Performed By: #### 3 3959-8, 07269-1, 71437-9, 215-6, 2777-1 ####[facility] LABORATORYCLIA [id number] [place] [address] [place] Lactate (Bld) [Moles/Vol]on 03-30-2022 Lactate [Moles/Vol] 0.8 mmol/L Normal 0.5-2.2 [facility] Comment on above: Order Comment: Speci men Type: BLOOD SPECIMENOrdering Facility: [facility] Address: [address] [place] [address] Performed By: #### 3 [id number] ####[facility] LABORATORYCLIA [id number] [place] [address] [place] Magnesium SerPl-mCncon 03-30 Magnesium [Mass/Vol] 2.0 mg/dL Normal 1.7-2.3 [facility] Comment on above: Order Comment: Speci men Type: BLOOD SPECIMENOrdering Facility: [facility] Address: [address] [place] [address] Performed By: #### 2 4323-8, 2777-1, 67794-8 ####[facility] LABORATORYCLIA [id number] [place] [id number] [place] NUTRITIONon 03-30-2022 NUTRITION Normal [facility] PT panel Coag (PPP)on 2021 INR Coag (PPP) [Relative time] 1.0 {INR} Normal 0.9-1.3 [facility] Comment on above: Order Comment: Speci men Type: BLOOD SPECIMENOrdering Facility: [facility] Address: [address] [id number] Result Comment: Sariah min K Antagonist (VKA) Therapeutic Range: INR 2 to 3 (Target INR of 2.5)Note: For patients treated with VKA drugs, such as warfarin, the [employer] 2012 Guideline recommends [...] of 3).Rosales GH, et al. Chest 2012, 141:7S-47SGloria SHEPHERD, et al. [facility] 2017, 70: 252-289 Performed By: #### 1 4979-9, 58093-4 ####[facility] LABORATORYCLIA [id number] [place] [id number] [place] PT Coag (PPP) [Time] 11.4 s Normal 9.7-13.0 [facility] Comment on above: Order Comment: Lauren santana Type: BLOOD SPECIMENOrdering Facility: [facility] Address: [address] [place] [address] Performed By: #### 1 4979-9, 71394-9 ####[facility] LABORATORYCLIA [id number] [place] [phone] [place] Phosphate SerPl-mCncon 03-30 Phosphate [Mass/Vol] 3.1 mg/dL Normal 2.7-4.8 [facility] Comment on above: Order Comment: Speci men Type: BLOOD SPECIMENOrdering Facility: [facility] Address: [address] [place] [address] Performed By: #### 3 3959-8, 78815-1, 42838-6, 2156-6, 7-1 ####[facility] LABORATORYCLIA [id number] [address] STATES OF [facility] Phosphate [Mass/Vol] 1.9 mg/dL Low 2.7-4.8 [facility] Comment on above: Order Comment: Speci men Type: BLOOD SPECIMENOrdering Facility: [facility] Address: [address] [place] [address] Performed By: #### 2 4323-8, 2777-1, 10437-0 ####[facility] [id number] [address] [place] Procalcitonin SerPl-mCncon 0 03-30-2022 Procalcitonin [Mass/Vol] 0.15 ng/mL High <0.09 [facility] Comment on above: Order Comment: Speci men Type: BLOOD SPECIMENOrdering Facility: [facility] Address: [address] [place] [address] Result Comment: For a guided interpretation of test results, please visit the Change in Procalcitonin Calculator, [email or web address]. Performed By: #### 3 3959-8, 62559-4, 52729-9, 2156-6, 2777-1 ####[facility] LABORATORYCLIA [id number] [place] [id number] [place] THERAPY NTon 03-30-2022 THERAPY NT Normal [facility] Urinalysis complete panel (U )on 03-30-2022 Bilirubin Ql (U) Negative Normal Negative [facility] Comment on above: Order Comment: Speci men Type: URINE SPECIMENOrdering Facility: [facility] Address: [address] [address] Performed By: #### 2 4356-8 ####[facility] LABORATORYCLIA [id number] [address] [place] Clarity (Unsp spec) Clear Normal Clear [facility] Comment on above: Order Comment: Speci men Type: URINE SPECIMENOrdering Facility: [facility] Address: [address] [place] [address] Performed By: #### 2 4356-8 ####[facility] LABORATORYCLIA [id number] [address] [place] Color (U) Colorless Normal yellow [facility] Comment on above: Order Comment: Speci men Type: URINE SPECIMENOrdering Facility: [facility] Address: [address] [place] [address] Performed By: #### 2 4356-8 ####[facility] LABORATORYCLIA [id number] [address] Epithelial cells LM.HPF (Urine sed) [#/Area] Few Normal [facility] Comment on above: Order Comment: Speci men Type: URINE SPECIMENOrdering Facility: [facility] Address: [address] [place] [address] Result Comment: Few Performed By: #### 2 4356-8 ####[facility] LABORATORYCLIA [id number] [address] [place] Glucose Test strip (U) [Mass/Vol] 4+ Abnormal Negative [facility] Comment on above: Order Comment: Speci men Type: URINE SPECIMENOrdering Facility: [facility] Address: [address] [place] [address] Performed By: #### 2 4356-8 ####[facility] LABORATORYCLIA [id number] [address] Hemoglobin Ql (U) Trace Abnormal Negative [facility] Comment on above: Order Comment: Speci men Type: URINE SPECIMENOrdering Facility: [facility] Address: [address] [address] Performed By: #### 2 4356-8 ####[facility] LABORATORYCLIA [id number] [address] Ketones Ql (U) 4+ Abnormal Negative [facility] Comment on above: Order Comment: Speci men Type: URINE SPECIMENOrdering Facility: [facility] Address: [address] [address] Performed By: #### 2 4356-8 ####[facility] LABORATORYCLIA [id number] [address] Leukocyte esterase Test strip Ql (U) Negative Normal Negative [facility] Comment on above: Order Comment: Speci men Type: URINE SPECIMENOrdering Facility: [facility] Address: [address] [place] [address] Performed By: #### 2 4356-8 ####[facility] LABORATORYCLIA [id number] [address] Nitrite Ql (U) Negative Normal Negative [facility] Comment on above: Order Comment: Speci men Type: URINE SPECIMENOrdering Facility: [facility] Address: [address] [place] [address] Performed By: #### 2 4356-8 ####[facility] LABORATORYCLIA [id number] [address] [place] pH (U) 5.5 [pH] Normal 5.0-8.0 [facility] Comment on above: Order Comment: Speci men Type: URINE SPECIMENOrdering Facility: [facility] Address: [address] [address] Performed By: #### 2 4356-8 ####[facility] LABORATORYCLIA [id number] [address] Protein (U) [Mass/Vol] Trace Abnormal Negative [facility] Comment on above: Order Comment: Speci men Type: URINE SPECIMENOrdering Facility: [facility] Address: [address] [place], [place] [address] Performed By: #### 2 4356-8 ####[facility] LABORATORYCLIA [id number] [address] RBC LM.HPF (Urine sed) [#/Area] 0-3 /HPF Normal 0-3 /HPF [facility] Comment on above: Order Comment: Speci men Type: URINE SPECIMENOrdering Facility: [facility] Address: [address] [place] [address] Performed By: #### 2 4356-8 ####[facility] LABORATORYCLIA [id number] [address] STATES OF [facility] Specific gravity (U) [Rel density] 1.021 Normal 1.005-1.030 [facility] Comment on above: Order Comment: Speci men Type: URINE SPECIMENOrdering Facility: [facility] Address: [address] [place] [address] Performed By: #### 2 4356-8 ####[facility] LABORATORYCLIA [id number] [address] Urobilinogen Ql (U) Normal Normal Negative [facility] Comment on above: Order Comment: Speci men Type: URINE SPECIMENOrdering Facility: [facility] Address: [address] [place] [address] Performed By: #### 2 4356-8 ####[facility] LABORATORYCLIA [id number] [address] WBC LM.HPF (Urine sed) [#/Area] 0-5 /HPF Normal 0-5 /HPF [facility] Comment on above: Order Comment: Speci men Type: URINE SPECIMENOrdering Facility: [facility] Address: [address] [place] [address] Performed By: #### 2 4356-8 ####[facility] LABORATORYCLIA [id number] [address] [place] XR ABDOMEN 1V SUPINEon 03-30 XR ABDOMEN 1V SUPINE Normal [facility] XR ABDOMEN 1V SUPINE Normal [facility] XR CHEST 1V FRONTALon 2021 XR CHEST 1V FRONTAL Normal [facility] aPTT PPPon 03-30-2022 aPTT Coag (PPP) [Time] 31.9 s Normal 23.0-32.4 [facility] Comment on above: Order Comment: Speci men Type: BLOOD SPECIMENOrdering Facility: [facility] Address: [address] [place] [address] Performed By: #### 1 4979-9, 92255-9 ####[facility] LABORATORYCLIA [id number] [address] STATES OF [facility] ALLIED HEALTHon 03-29-2022 ALLIED HEALTH Normal [facility] CBC W Auto Differential pane l (Bld)on 03-29-2022 Basophils (Bld) [#/Vol] 10*3/uL Normal <0.11 [facility] Comment on above: Order Comment: Speci men Type: BLOOD SPECIMENOrdering Facility: [facility] Address: [address] [place] [address] Performed By: #### 5 7021-8 ####[facility] LABORATORYCLIA [id number] [address] [place] Basophils/100 WBC (Bld) 0.1 % Normal [facility] Comment on above: Order Comment: Speci men Type: BLOOD SPECIMENOrdering Facility: [facility] Address: [address] [place] [address] Performed By: #### 5 7021-8 ####[facility] LABORATORYCLIA [id number] [address] [place] Differential cell count method Nom (Bld) Auto Normal [facility] Comment on above: Order Comment: Speci men Type: BLOOD SPECIMENOrdering Facility: [facility] Address: [address] [place] [address] Performed By: #### 5 7021-8 ####[facility] LABORATORYCLIA [id number] [place] [address] [place] Eosinophils (Bld) [#/Vol] 10*3/uL Normal <0.46 [facility] Comment on above: Order Comment: Speci men Type: BLOOD SPECIMENOrdering Facility: [facility] Address: [address] [place] [address] Performed By: #### 5 7021-8 ####[facility] LABORATORYCLIA [id number] [address] Eosinophils/100 WBC (Bld) 0.1 % Normal [facility] Comment on above: Order Comment: Speci men Type: BLOOD SPECIMENOrdering Facility: [facility] Address: [address] [place] [address] Performed By: #### 5 7021-8 ####[facility] LABORATORYCLIA [id number] [address] Erythrocyte distribution width (RBC) [Ratio] 18.8 % High 11.5-15.0 [facility] Comment on above: Order Comment: Speci men Type: BLOOD SPECIMENOrdering Facility: [facility] Address: [address] [place] [address] Performed By: #### 5 7021-8 ####[facility] LABORATORYCLIA [id number] [address] Hematocrit (Bld) [Volume fraction] 32.5 % Low 36.0-46.0 [facility] Comment on above: Order Comment: Speci men Type: BLOOD SPECIMENOrdering Facility: [facility] Address: [address] [place] [address] Performed By: #### 5 7021-8 ####[facility] LABORATORYCLIA [id number] [address] Hemoglobin (Bld) [Mass/Vol] 9.9 g/dL Low 11.5-15.5 [facility] Comment on above: Order Comment: Speci men Type: BLOOD SPECIMENOrdering Facility: [facility] Address: [address] [place] [address] Performed By: #### 5 7021-8 ####[facility] LABORATORYCLIA [id number] [address] IMMATURE GRAN % 0.5 % Normal [facility] Comment on above: Order Comment: Speci men Type: BLOOD SPECIMENOrdering Facility: [facility] Address: [address] [place] [address] Performed By: #### 5 7021-8 ####[facility] LABORATORYCLIA [id number] [address] IMMATURE GRAN ABS 0.07 k/uL Normal <0.10 [facility] Comment on above: Order Comment: Speci men Type: BLOOD SPECIMENOrdering Facility: [facility] Address: [address] [place] [address] Performed By: #### 5 7021-8 ####[facility] LABORATORYCLIA [id number] [address] Lymphocytes (Bld) [#/Vol] 1.04 10*3/uL Normal 1.00-4.0 0 [facility] Comment on above: Order Comment: Speci men Type: BLOOD SPECIMENOrdering Facility: [facility] Address: [address] [place] [address] Performed By: #### 5 7021-8 ####[facility] LABORATORYCLIA [id number] [address] Lymphocytes/100 WBC (Bld) 7.7 % Normal [facility] Comment on above: Order Comment: Speci men Type: BLOOD SPECIMENOrdering Facility: [facility] Address: [address] [place] [address] Performed By: #### 5 7021-8 ####[facility] LABORATORYCLIA [id number] [address] MCH (RBC) [Entitic mass] 29.6 pg Normal 26.0-34.0 [facility] Comment on above: Order Comment: Speci men Type: BLOOD SPECIMENOrdering Facility: [facility] Address: [address] [address] Performed By: #### 5 7021-8 ####[facility] LABORATORYCLIA [id number] [address] STATES [facility] MCHC (RBC) [Mass/Vol] 30.5 g/dL Normal 30.5-36.0 [facility] Comment on above: Order Comment: Speci men Type: BLOOD SPECIMENOrdering Facility: [facility] Address: [address] [place] [address] Performed By: #### 5 7021-8 ####[facility] LABORATORYCLIA [id number] [address] STATES [facility] MCV (RBC) [Entitic vol] 97.0 fL Normal 80.0-100.0 [facility] Comment on above: Order Comment: Speci men Type: BLOOD SPECIMENOrdering Facility: [facility] Address: [address] [place] [address] Performed By: #### 5 7021-8 ####[facility] LABORATORYCLIA [id number] [address] OF [facility] Monocytes (Bld) [#/Vol] 0.95 10*3/uL High <0.87 [facility] Comment on above: Order Comment: Speci men Type: BLOOD SPECIMENOrdering Facility: [facility] Address: [address] [place] [address] Performed By: #### 5 7021-8 ####[facility] LABORATORYCLIA [id number] [address] Monocytes/100 WBC (Bld) 7.0 % Normal [facility] Comment on above: Order Comment: Speci men Type: BLOOD SPECIMENOrdering Facility: [facility] Address: [address] [place] [address] Performed By: #### 5 7021-8 ####[facility] LABORATORYCLIA [id number] [address] [place] Neutrophils (Bld) [#/Vol] 11.47 10*3/uL High 1.45-7. 50 [facility] Comment on above: Order Comment: Speci men Type: BLOOD SPECIMENOrdering Facility: [facility] Address: [address] [place] [address] Performed By: #### 5 7021-8 ####[facility] LABORATORYCLIA [id number] [address] Neutrophils/100 WBC (Bld) 84.6 % Normal [facility] Comment on above: Order Comment: Speci men Type: BLOOD SPECIMENOrdering Facility: [facility] Address: [address] [place] [address] Performed By: #### 5 7021-8 ####[facility] LABORATORYCLIA [id number] [address] [place] Nucleated RBC (Bld) [#/Vol] 10*3/uL Normal <0.01 [facility] Comment on above: Order Comment: Speci men Type: BLOOD SPECIMENOrdering Facility: [facility] Address: [address] [place] [address] Performed By: #### 5 7021-8 ####[facility] LABORATORYCLIA [id number] [address] [place] Nucleated RBC/100 WBC (Bld) [Ratio] 0.0 /100 WBC Normal [facility] Comment on above: Order Comment: Speci men Type: BLOOD SPECIMENOrdering Facility: [facility] Address: [address] [place] [address] Performed By: #### 5 7021-8 ####[facility] LABORATORYCLIA [id number] [place] [address] [place] Platelet mean volume (Bld) [Entitic vol] 9.0 fL Normal 9.0-12.7 [facility] Comment on above: Order Comment: Speci men Type: BLOOD SPECIMENOrdering Facility: [facility] Address: [address] [place] [address] Performed By: #### 5 7021-8 ####[facility] LABORATORYCLIA [id number] [address] OF [facility] Platelets (Bld) [#/Vol] 342 10*3/uL Normal 150-400 [facility] Comment on above: Order Comment: Speci men Type: BLOOD SPECIMENOrdering Facility: [facility] Address: [address] [place] [address] Performed By: #### 5 7021-8 ####[facility] LABORATORYCLIA [id number] [address] OF [facility] RBC (Bld) [#/Vol] 3.35 10*6/uL Low 3.90-5.20 [facility] Comment on above: Order Comment: Speci men Type: BLOOD SPECIMENOrdering Facility: [facility] Address: [address] [place] [address] Performed By: #### 5 7021-8 ####[facility] LABORATORYCLIA [id number] [address] WBC (Bld) [#/Vol] 13.56 10*3/uL High 3.70-11.00 [facility] Comment on above: Order Comment: Speci men Type: BLOOD SPECIMENOrdering Facility: [facility] Address: [address] [place] [address] Performed By: #### 5 7021-8 ####[facility] LABORATORYCLIA [id number] [address] OF [facility] CT BRAIN WO IVCONon 03-29-20 CT BRAIN WO IVCON Normal [facility] Comprehensive metabolic 2000 panelon 03-29-2022 Albumin [Mass/Vol] 4.2 g/dL Normal 3.9-4.9 [facility] Comment on above: Order Comment: Speci men Type: BLOOD SPECIMENOrdering Facility: [facility] Address: [address] [place] [address] Performed By: #### 1 9123-9, 81169-5, 2777-1 ####[facility] LABORATORYCLIA [id number] [address] OF [facility] ALP [Catalytic activity/Vol] 79 U/L Normal 34-123 [facility] Comment on above: Order Comment: Speci men Type: BLOOD SPECIMENOrdering Facility: [facility] Address: [address] [place] [address] Performed By: #### 1 9123-9, 19452-2, 2777-1 ####[facility] LABORATORYCLIA [id number] [address] STATES OF [facility] ALT With P-5'-P [Catalytic activity/Vol] 10 U/L Normal 7-38 [facility] Comment on above: Order Comment: Speci men Type: BLOOD SPECIMENOrdering Facility: [facility] Address: [address] [place] [address] Performed By: #### 1 9123-9, 42759-2, 277-1 ####[facility] LABORATORYCLIA [id number] [address] OF [facility] Anion gap [Moles/Vol] 15 mmol/L Normal 9-18 [facility] Comment on above: Order Comment: Speci men Type: BLOOD SPECIMENOrdering Facility: [facility] Address: [address] [place] [address] Performed By: #### 1 9123-9, 84698-2, 2776-1 ####[facility] LABORATORYCLIA [id number] [address] STATES OF [facility] AST With P-5'-P [Catalytic activity/Vol] 11 U/L Low 13-35 [facility] Comment on above: Order Comment: Speci men Type: BLOOD SPECIMENOrdering Facility: [facility] Address: [address] [place] [address] Performed By: #### 1 9123-9, 49615-9, 2777-1 ####[facility] LABORATORYCLIA [id number] [place] [address] [place] Bilirubin [Mass/Vol] 0.2 mg/dL Normal 0.2-1.3 [facility] Comment on above: Order Comment: Speci men Type: BLOOD SPECIMENOrdering Facility: [facility] Address: [address] [place] [address] Performed By: #### 1 9123-9, 65352-7, 277- ####[facility] LABORATORYCLIA [id number] [place] [address] [place] Calcium [Mass/Vol] 7.9 mg/dL Low 8.5-10.2 [facility] Comment on above: Order Comment: Speci men Type: BLOOD SPECIMENOrdering Facility: [facility] Address: [address] [place] [address] Performed By: #### 1 9123-9, 23029-0, 27702-15 ####[facility] LABORATORYCLIA [id number] [place] [address] [place] Chloride [Moles/Vol] 101 mmol/L Normal 97-105 [facility] Comment on above: Order Comment: Speci men Type: BLOOD SPECIMENOrdering Facility: [facility] Address: [address] [place] [address] Performed By: #### 1 23-9, , 2776-08 ####[facility] LABORATORYCLIA [id number] [place] [address] [place] CO2 [Moles/Vol] 22 mmol/L Normal 22-30 [facility] Comment on above: Order Comment: Speci men Type: BLOOD SPECIMENOrdering Facility: [facility] Address: [address] [place] [address] Performed By: #### 1 9123-9, 60841-2, 277- ####[facility] LABORATORYCLIA [id number] [place] [address] [place] Creatinine [Mass/Vol] 0.39 mg/dL Low 0.58-0.96 [facility] Comment on above: Order Comment: Speci men Type: BLOOD SPECIMENOrdering Facility: [facility] Address: [address] [place] [address] Performed By: #### 1 9123-9, 23206-3, 2776-08 ####[facility] LABORATORYCLIA [id number] [address] [place] ESTIMATED GLOMERULAR FILTRATION RATE 109 mL/min/1.73m??? Normal >=60 [facility] Comment on above: Order Comment: Lauren santana Type: BLOOD SPECIMENOrdering Facility: [facility] Address: [address] [place] [address] Result Comment: Ameena mated Glomerular Filtration Rate [...] actual GFR. Performed By: #### 1 9123-9, 29041-8, 2776-08 ####[facility] [id number] [address] [place] Glucose [Mass/Vol] 113 mg/dL High 74-99 [facility] Comment on above: Order Comment: Lauren santana Type: BLOOD SPECIMENOrdering Facility: [facility] Address: [address] [place] [address] Result Comment: The [place] [employer] (ADA) provides guidance for cutoff [...] Standards of Medical Care in Diabetes 2016, [place] [employer]. Diabetes Care. 2016.39(Suppl 1). Performed By: #### 1 9123-9, 29875-9, 2776-08 ####[facility] LABORATORYCLIA [id number] [place] [address] [place] Potassium [Moles/Vol] 3.4 mmol/L Low 3.7-5.1 [facility] Comment on above: Order Comment: Speci men Type: BLOOD SPECIMENOrdering Facility: [facility] Address: [address] [place] [address] Performed By: #### 1 9123-9, 40388-7, 2777-1 ####[facility] LABORATORYCLIA [id number] [place] [address] [place] Protein [Mass/Vol] 6.4 g/dL Normal 6.3-8.0 [facility] Comment on above: Order Comment: Speci men Type: BLOOD SPECIMENOrdering Facility: [facility] Address: [address] [place] [address] Performed By: #### 1 9123-9, 08587-0, 277- ####[facility] LABORATORYCLIA [id number] [place] [address] [place] Sodium [Moles/Vol] 138 mmol/L Normal 136-144 [facility] Comment on above: Order Comment: Speci men Type: BLOOD SPECIMENOrdering Facility: [facility] Address: [address] [place] [address] Performed By: #### 1 9123-9, 28447-3, 2777- ####[facility] LABORATORYCLIA [id number] [place] [address] [place] Urea nitrogen [Mass/Vol] 8 mg/dL Normal 7-21 [facility] Comment on above: Order Comment: Speci men Type: BLOOD SPECIMENOrdering Facility: [facility] Address: [address] [place] [address] Performed By: #### 1 9123-9, 74797-7, 2777-1 ####[facility] LABORATORYCLIA [id number] [place] [address] [place] Magnesium SerPl-mCncon 03-29 Magnesium [Mass/Vol] 1.5 mg/dL Low 1.7-2.3 [facility] Comment on above: Order Comment: Speckatie santana Type: BLOOD SPECIMENOrdering Facility: [facility] Address: [address] [place] [address] Performed By: #### 1 9123-9, 98267-4, 2777-1 ####[facility] LABORATORYCLIA [id number] [address] OF [facility] NURSING PROGon 03-29-2022 NURSING PROG Normal [facility] PT panel Coag (PPP)on 2021 INR Coag (PPP) [Relative time] 1.0 {INR} Normal 0.9-1.3 [facility] Comment on above: Order Comment: Lauren santana Type: BLOOD SPECIMENOrdering Facility: [facility] Address: [address] [place] [address] Result Comment: Sariah min K Antagonist (VKA) Therapeutic Range: INR 2 to 3 (Target INR of 2.5)Note: For patients treated with VKA drugs, such as warfarin, the [employer] 2012 Guideline recommends [...] al. Chest 2012, 141:7S-47SNishgonzalo RA, et al. JACC 2017, 70: 252-289 Performed By: #### 3 4528-0, 02623-4 ####[facility] LABORATORYCLIA [id number] [address] [place] PT Coag (PPP) [Time] 11.4 s Normal 9.7-13.0 [facility] Comment on above: Order Comment: Speci men Type: BLOOD SPECIMENOrdering Facility: [facility] Address: [address] [place] [address] Performed By: #### 3 4528-0, 06812-4 ####[facility] LABORATORYCLIA [id number] [address] [place] Phosphate SerPl-mCncon 03-29 Phosphate [Mass/Vol] 3.2 mg/dL Normal 2.7-4.8 [facility] Comment on above: Order Comment: Speci men Type: BLOOD SPECIMENOrdering Facility: [facility] Address: [address] [place] [address] Performed By: #### 1 9123-9, 74843-0, 2777-1 ####[facility] LABORATORYCLIA [id number] [address] THERAPY NTon 03-29-2022 THERAPY NT Normal [facility] THERAPY NT Normal [facility] THERAPY NT Normal [facility] aPTT PPPon 03-29-2022 aPTT Coag (PPP) [Time] 29.0 s Normal 23.0-32.4 [facility] Comment on above: Order Comment: Speci men Type: BLOOD SPECIMENOrdering Facility: [facility] Address: [address] [place] [address] Performed By: #### 3 4528-0, 13287-8 ####[facility] LABORATORYCLIA [id number] [address] [place] ANES POSTPROC EVALon 022 ANES POSTPROC EVAL Normal [facility] ANES PRE-OPon 03-28-2022 ANES PRE-OP Normal [facility] Absolute lymphocyte counton 03-28-2022 Lymphocytes Auto (Unsp spec) [#/Vol] 2.37 10*3/uL 0.83-4.51 [facility] Work Phone: Basophil percentageon 2021 Basophils/100 WBC (Bld) 0.3 % 0-1 [facility] Work Phone: Chloride [Moles/Vol] 112 mmol/L 98-107 [facility] Work Phone: Eosinophils/100 WBC (Bld) 0.8 % 0-5 [facility] Work Phone: Glucose [Mass/Vol] 143 mg/dL 74-106 [facility] Work Phone: Comment on above: Fasting Glucose resu lt greater than or equal to 126 mg/dL suggests DIABETES MELLITUS per A.D.A. criteria. Neutrophils (Bld) [#/Vol] 8.3 10*3/uL 2.0-7.7 [facility] Work Phone: Neutrophils/100 WBC (Bld) 69.4 % 47-70 [facility] Work Phone: Potassium [Moles/Vol] 4.0 mmol/L 3.5-5.1 [facility] Work Phone: Sodium [Moles/Vol] 142 mmol/L 136-145 [facility] Work Phone: WBC (Bld) [#/Vol] 12.0 10*3/uL 4.4-11.0 [facility] Work Phone: Blood erythrocytes count (nu mber/volume)on 03-28-2022 RBC (Bld) [#/Vol] 3.94 10*6/uL 4.2-5.4 [facility] Work Phone: Blood hemoglobin measurement (mass/volume)on 03-28-2022 Hemoglobin (Bld) [Mass/Vol] 11.9 g/dL 12.0-15.0 [facility] Work Phone: Blood lymphocytes/100 leukoc yteson 03-28-2022 Lymphocytes/100 WBC (Bld) 19.8 % 19-41 [facility] Work Phone: [phone] Blood monocytes/100 leukocyt eson 03-28-2022 Monocytes/100 WBC (Bld) 8.5 % 0-10 [facility] Work Phone: Blood platelet mean volumeon 03-28-2022 Platelet mean volume (Bld) [Entitic vol] 8.7 fL 6.2-12.0 [facility] Work Phone: CBC W Auto Differential pane l (Bld)on 03-28-2022 Basophils (Bld) [#/Vol] 0.05 10*3/uL Normal <0.11 [facility] Comment on above: Order Comment: Speci men Type: BLOOD SPECIMENOrdering Facility: [facility] Address: [address] [place] [address] Performed By: #### 5 7021-8 ####[facility] LABORATORYCLIA [id number] [address] [place] Basophils/100 WBC (Bld) 0.3 % Normal [facility] Comment on above: Order Comment: Speci men Type: BLOOD SPECIMENOrdering Facility: [facility] Address: [address] [place] [address] Performed By: #### 5 7021-8 ####[facility] LABORATORYCLIA [id number] [address] [place] Differential cell count method Nom (Bld) Auto Normal [facility] Comment on above: Order Comment: Speci men Type: BLOOD SPECIMENOrdering Facility: [facility] Address: [address] [place] [address] Performed By: #### 5 7021-8 ####[facility] LABORATORYCLIA [id number] [place] [address] [place] Eosinophils (Bld) [#/Vol] 10*3/uL Normal <0.46 [facility] Comment on above: Order Comment: Speci men Type: BLOOD SPECIMENOrdering Facility: [facility] Address: [address] [place] [address] Performed By: #### 5 7021-8 ####[facility] LABORATORYCLIA [id number] [address] [place] Eosinophils/100 WBC (Bld) 0.1 % Normal [facility] Comment on above: Order Comment: Speci men Type: BLOOD SPECIMENOrdering Facility: [facility] Address: [address] [place] [address] Performed By: #### 5 7021-8 ####[facility] LABORATORYCLIA [id number] [address] [place] Erythrocyte distribution width (RBC) [Ratio] 18.6 % High 11.5-15.0 [facility] Comment on above: Order Comment: Speci men Type: BLOOD SPECIMENOrdering Facility: [facility] Address: [address] [place] [address] Performed By: #### 5 7021-8 ####[facility] LABORATORYCLIA [id number] [address] OF [facility] Hematocrit (Bld) [Volume fraction] 38.0 % Normal 36.0-46.0 [facility] Comment on above: Order Comment: Speci men Type: BLOOD SPECIMENOrdering Facility: [facility] Address: [address] [place] [address] Performed By: #### 5 7021-8 ####[facility] LABORATORYCLIA [id number] [address] [place] Hemoglobin (Bld) [Mass/Vol] 11.8 g/dL Normal 11.5-15.5 [facility] Comment on above: Order Comment: Speci men Type: BLOOD SPECIMENOrdering Facility: [facility] Address: [address] [place] [address] Performed By: #### 5 7021-8 ####[facility] LABORATORYCLIA [id number] [address] [place] IMMATURE GRAN % 1.0 % Normal [facility] Comment on above: Order Comment: Speci men Type: BLOOD SPECIMENOrdering Facility: [facility] Address: [address] [place] [address] Performed By: #### 5 7021-8 ####[facility] LABORATORYCLIA [id number] [address] IMMATURE GRAN ABS 0.17 k/uL High <0.10 [facility] Comment on above: Order Comment: Speci men Type: BLOOD SPECIMENOrdering Facility: [facility] Address: [address] [place] [address] Performed By: #### 5 7021-8 ####[facility] LABORATORYCLIA [id number] [address] Lymphocytes (Bld) [#/Vol] 1.23 10*3/uL Normal 1.00-4.0 0 [facility] Comment on above: Order Comment: Speci men Type: BLOOD SPECIMENOrdering Facility: [facility] Address: [address] [place] [address] Performed By: #### 5 7021-8 ####[facility] LABORATORYCLIA [id number] [address] Lymphocytes/100 WBC (Bld) 7.2 % Normal [facility] Comment on above: Order Comment: Speci men Type: BLOOD SPECIMENOrdering Facility: [facility] Address: [address] [place] [address] Performed By: #### 5 7021-8 ####[facility] LABORATORYCLIA [id number] [address] MCH (RBC) [Entitic mass] 29.9 pg Normal 26.0-34.0 [facility] Comment on above: Order Comment: Speci men Type: BLOOD SPECIMENOrdering Facility: [facility] Address: [address] [place] [address] Performed By: #### 5 7021-8 ####[facility] LABORATORYCLIA [id number] [address] MCHC (RBC) [Mass/Vol] 31.1 g/dL Normal 30.5-36.0 [facility] Comment on above: Order Comment: Speci men Type: BLOOD SPECIMENOrdering Facility: [facility] Address: [address] [place] [address] Performed By: #### 5 7021-8 ####[facility] LABORATORYCLIA [id number] [address] [place] MCV (RBC) [Entitic vol] 96.4 fL Normal 80.0-100.0 [facility] Comment on above: Order Comment: Speci men Type: BLOOD SPECIMENOrdering Facility: [facility] Address: [address] [place] [address] Performed By: #### 5 7021-8 ####[facility] LABORATORYCLIA [id number] [address] [place] Monocytes (Bld) [#/Vol] 0.97 10*3/uL High <0.87 [facility] Comment on above: Order Comment: Speci men Type: BLOOD SPECIMENOrdering Facility: [facility] Address: [address] [place] [address] Performed By: #### 5 7021-8 ####[facility] LABORATORYCLIA [id number] [address] [place] Monocytes/100 WBC (Bld) 5.7 % Normal [facility] Comment on above: Order Comment: Speci men Type: BLOOD SPECIMENOrdering Facility: [facility] Address: [address] [place] [address] Performed By: #### 5 7021-8 ####[facility] LABORATORYCLIA [id number] [address] [place] Neutrophils (Bld) [#/Vol] 14.71 10*3/uL High 1.45-7. 50 [facility] Comment on above: Order Comment: Speci men Type: BLOOD SPECIMENOrdering Facility: [facility] Address: [address] [place] [address] Performed By: #### 5 7021-8 ####[facility] LABORATORYCLIA [id number] [address] [place] Neutrophils/100 WBC (Bld) 85.7 % Normal [facility] Comment on above: Order Comment: Speci men Type: BLOOD SPECIMENOrdering Facility: [facility] Address: [address] Performed By: #### 5 7021-8 ####[facility] LABORATORYCLIA [id number] [address] Nucleated RBC (Bld) [#/Vol] 10*3/uL Normal <0.01 [facility] Comment on above: Order Comment: Speci men Type: BLOOD SPECIMENOrdering Facility: [facility] Address: [address] Performed By: #### 5 7021-8 ####[facility] LABORATORYCLIA [id number] [address] [place] Nucleated RBC/100 WBC (Bld) [Ratio] 0.0 /100 WBC Normal [facility] Comment on above: Order Comment: Speci men Type: BLOOD SPECIMENOrdering Facility: [facility] Address: [address] Performed By: #### 5 7021-8 ####[facility] LABORATORYCLIA [id number] [address] [place] Platelet mean volume (Bld) [Entitic vol] 9.2 fL Normal 9.0-12.7 [facility] Comment on above: Order Comment: Speci men Type: BLOOD SPECIMENOrdering Facility: [facility] Address: [address] Performed By: #### 5 7021-8 ####[facility] LABORATORYCLIA [id number] [address] [place] Platelets (Bld) [#/Vol] 362 10*3/uL Normal 150-400 [facility] Comment on above: Order Comment: Speci men Type: BLOOD SPECIMENOrdering Facility: [facility] Address: [address] [place], [place] [address] Performed By: #### 5 7021-8 ####[facility] LABORATORYCLIA [id number] [address] [place] RBC (Bld) [#/Vol] 3.94 10*6/uL Normal 3.90-5.20 [facility] Comment on above: Order Comment: Speci men Type: BLOOD SPECIMENOrdering Facility: [facility] Address: [address] [place] [address] Performed By: #### 5 7021-8 ####[facility] LABORATORYCLIA [id number] [address] [place] WBC (Bld) [#/Vol] 17.15 10*3/uL High 3.70-11.00 [facility] Comment on above: Order Comment: Speci men Type: BLOOD SPECIMENOrdering Facility: [facility] Address: [address] [place] [address] Performed By: #### 5 7021-8 ####[facility] LABORATORYCLIA [id number] [address] [place] CONSULTon 03-28-2022 CONSULT Normal [facility] CT BRAIN WO IVCONon 03-28-20 CT BRAIN WO IVCON Normal [facility] Calcium.ionized [Moles/Vol]o n 03-28-2022 Calcium.ionized (BldV) [Mass/Vol] 1.08 mmol/L Normal 1.08-1.30 [facility] Comment on above: Order Comment: Speci men Type: BLOOD SPECIMENOrdering Facility: [facility] Address: [address] [place] [address] Performed By: #### 1 995-0 ####[facility] LABORATORYCLIA [id number] [address] Calcium.ionized adjusted to pH 7.4 (Bld) [Moles/Vol] 1.02 mmol/L Low 1.08-1.30 [facility] Comment on above: Order Comment: Speci men Type: BLOOD SPECIMENOrdering Facility: [facility] Address: [address] [place] [address] Performed By: #### 1 995-0 ####[facility] LABORATORYCLIA [id number] [address] Comprehensive metabolic 2000 panelon 03-28-2022 Albumin [Mass/Vol] 4.8 g/dL Normal 3.9-4.9 [facility] Comment on above: Order Comment: Speci men Type: BLOOD SPECIMENOrdering Facility: [facility] Address: [address] [place] [address] Performed By: #### 1 9123-9, 2777-, 34669-1 ####[facility] LABORATORYCLIA [id number] [address] OF [facility] ALP [Catalytic activity/Vol] 89 U/L Normal 34-123 [facility] Comment on above: Order Comment: Speci men Type: BLOOD SPECIMENOrdering Facility: [facility] Address: [address] [place] [address] Performed By: #### 1 9123-9, 27702-15, 90331-1 ####[facility] [id number] [address] ALT With P-5'-P [Catalytic activity/Vol] 12 U/L Normal 7-38 [facility] Comment on above: Order Comment: Speci men Type: BLOOD SPECIMENOrdering Facility: [facility] Address: [address] [place] [address] Performed By: #### 1 9123-9, 2777, 63299-3 ####[facility] LABORATORYCLIA [id number] [address] Anion gap [Moles/Vol] 14 mmol/L Normal 9-18 [facility] Comment on above: Order Comment: Speci men Type: BLOOD SPECIMENOrdering Facility: [facility] Address: [address] [place] [address] Performed By: #### 1 9123-9, 2777-, 03865-1 ####[facility] LABORATORYCLIA [id number] [place] [address] [place] AST With P-5'-P [Catalytic activity/Vol] 12 U/L Low 13-35 [facility] Comment on above: Order Comment: Speci men Type: BLOOD SPECIMENOrdering Facility: [facility] Address: [address] [place] [address] Performed By: #### 1 9123-9, 2776-08, 49900-4 ####[facility] LABORATORYCLIA [id number] [place] [address] [place] Bilirubin [Mass/Vol] 0.2 mg/dL Normal 0.2-1.3 [facility] Comment on above: Order Comment: Speci men Type: BLOOD SPECIMENOrdering Facility: [facility] Address: [address] [place] [address] Performed By: #### 1 9123-9, 2776-08, ####[facility] LABORATORYCLIA [id number] [place] [address] [place] Calcium [Mass/Vol] 8.7 mg/dL Normal 8.5-10.2 [facility] Comment on above: Order Comment: Speci men Type: BLOOD SPECIMENOrdering Facility: [facility] Address: [address] [place] [address] Performed By: #### 1 9123-9, 2776-08, ####[facility] LABORATORYCLIA [id number] [place] [address] [place] Chloride [Moles/Vol] 103 mmol/L Normal 97-105 [facility] Comment on above: Order Comment: Speci men Type: BLOOD SPECIMENOrdering Facility: [facility] Address: [address] [place] [address] Performed By: #### 1 9123-9, 2776-08, 35835-3 ####[facility] LABORATORYCLIA [id number] [place] [address] [place] CO2 [Moles/Vol] 21 mmol/L Low 22-30 [facility] Comment on above: Order Comment: Speci men Type: BLOOD SPECIMENOrdering Facility: [facility] Address: [address] [address] Performed By: #### 1 9123-9, 2777-, 95972-3 ####[facility] [id number] [address] [place] Creatinine [Mass/Vol] 0.40 mg/dL Low 0.58-0.96 [facility] Comment on above: Order Comment: Speci men Type: BLOOD SPECIMENOrdering Facility: [facility] Address: [address] [place] [address] Performed By: #### 1 9123-9, 2777, 40703-7 ####[place]ITALIA [id number] [address] [place] ESTIMATED GLOMERULAR FILTRATION RATE 109 mL/min/1.73m??? Normal >=60 [facility] Comment on above: Order Comment: Speci men Type: BLOOD SPECIMENOrdering Facility: [facility] Address: [address] [place] [address] Result Comment: Ameena mated Glomerular Filtration Rate [...] GFR. Performed By: #### 1 9123-9, 2777-, 68440-9 ####[facility] LABORATORYIA [id number] [place] [address] [place] Glucose [Mass/Vol] 187 mg/dL High 74-99 [facility] Comment on above: Order Comment: Speci men Type: BLOOD SPECIMENOrdering Facility: [facility] Address: [address] [place] [address] Result Comment: The [employer] (ADA) provides guidance for cutoff [...] Standards of Medical Care in Diabetes 2016, [employer]. Diabetes Care. 2016.39(Suppl 1). Performed By: #### 1 9123-9, 2776-08, ####[facility] LABORATORYCLIA [id number] [place] [address] [place] Potassium [Moles/Vol] 4.0 mmol/L Normal 3.7-5.1 [facility] Comment on above: Order Comment: Lauren santana Type: BLOOD SPECIMENOrdering Facility: [facility] Address: [address] [place] [address] Performed By: #### 1 9123-9, 2776-08, ####[facility]IA [id number] [place] [address] [place] Protein [Mass/Vol] 7.2 g/dL Normal 6.3-8.0 [facility] Comment on above: Order Comment: Lauren santana Type: BLOOD SPECIMENOrdering Facility: [facility] Address: [address] [place] [address] Performed By: #### 1 9123-9, 2776-08, ####[facility] LABORATORYCLIA [id number] [place] [address] [place] Sodium [Moles/Vol] 138 mmol/L Normal 136-144 [facility] Comment on above: Order Comment: Lauren santana Type: BLOOD SPECIMENOrdering Facility: [facility] Address: [address] [address] Performed By: #### 1 9123-9, 2776-08, 29622-1 ####[facility] LABORATORYCLIA [id number] [address] [place] Urea nitrogen [Mass/Vol] 9 mg/dL Normal 7-21 [facility] Comment on above: Order Comment: Speci men Type: BLOOD SPECIMENOrdering Facility: [facility] Address: [address] [place] [address] Performed By: #### 1 9123-9, 2777-1, 88071-2 ####[facility] LABORATORYCLIA [id number] [address] [place] Determination of erythrocyte mean corpuscular volume (MCV)on 03-28-2022 MCV (RBC) [Entitic vol] 98.0 fL 81-99 [facility] Work Phone: ED NOTEon 03-28-2022 ED NOTE HNO ID: [id number] Author: Savana Sotelo RN Service: ? Author Type: Registered Nurse Type: ED Notes Filed: 03/28/2022 1:12 PM Note Text: Normal [facility] ED NOTE HNO ID: [id number] Author: Isreal Sow RN Service: ? Author Type: Registered Nurse Type: ED Notes Filed: 03/28/2022 12:51 PM Note Text: Bed: [address] [place] [address] Expected date: Expected time: Means of arrival: Comments: ADRIANO [place] - SDH Normal [facility] ED PROV NOTEon 03-28-2022 ED PROV NOTE Normal [facility] Erythrocyte sedimentation ra coco 03-28-2022 ESR (Bld) [Velocity] 21 mm/h 0-30 [facility] Work Phone: HISTORY PHYSICALon 2 HISTORY PHYSICAL Normal [facility] Hematocrit Auto (Bld) [Volum e fraction]on 03-28-2022 Hematocrit (Bld) [Volume fraction] 38.6 % 37-47 [facility] Work Phone: INR in Blood by Coagulation assayon 03-28-2022 INR Coag (Bld) [Relative time] 1.0 {INR} [facility] Work Phone: Laboratory - Chemistry and C hemistry - challengeon 03-28-2022 CO2 [Moles/Vol] 23.0 mmol/L 21.0-32.0 [facility] Work Phone: Urea nitrogen/Creatinine [Mass ratio] 21.3 mg/mg 10-20 [facility] Work Phone: Laboratory - Coagulationon 0 03-28-2022 aPTT Coag (Bld) [Time] 35.1 s 24.1-36.2 [facility] Work Phone: PT Coag (PPP) [Time] 12.7 s 11.7-14.9 [facility]: Laboratory - Hematology and Cell countson 03-28-2022 Anisocytosis Ql (Bld) 1+ [facility] Work Phone: Erythrocyte distribution width (RBC) [Entitic vol] 65.8 fL 35.1-43.9 [facility] Work Phone: Erythrocyte distribution width (RBC) [Ratio] 18.6 % 11.6-14.6 [facility] Work Phone: Immature granulocytes/100 WBC (Bld) 1.200 % 0.0-0.9 [facility] Work Phone: Comment on above: IG% - Immature Granu locytes (promyelocytes, myelocytes and metamyelocytes) > 1% indicates that a LEFT SHIFT is Present. MCH (RBC) [Entitic mass] 30.2 pg 27.0-32.0 [facility] Work Phone: Nucleated RBC/100 WBC (Bld) [Ratio] 0 % 0-5 [facility] Work Phone: MCHC Auto (RBC) [Mass/Vol]on 03-28-2022 MCHC (RBC) [Mass/Vol] 30.8 g/dL 32-36 [facility] Work Phone: Magnesium SerPl-mCncon 03-28 Magnesium [Mass/Vol] 1.6 mg/dL Low 1.7-2.3 [facility] Comment on above: Order Comment: Speci men Type: BLOOD SPECIMENOrdering Facility: [facility] Address: [address] [place] [address] Performed By: #### 1 9123-9, 2777-1, 80159-4 ####[facility] LABORATORYCLIA [id number] [address] Microorganism Spec Culton Microorganism identified Cx Nom (Unsp spec) CULTURE, MRSA SCREEN: Negative for methicillin resistant Staphylococcus aureus Normal [facility] Comment on above: Performed By: #### 1 1475-1 ####[facility] LABORATORYCLIA [id number] [address] No Panel Informationon 03-28 Estimated Creatinine Clearance Calc 43.18 ml/min [facility] Work Phone: Estimated GFR (MDRD) Amer 138 mL/min >60 [facility] Work Phone: Comment on above: GFR Calc Estimated GFR (MDRD) Non-Af Amer 114 mL/min >60 [facility] Work Phone: Comment on above: Non- GFR Calc OPERATIVE NOon 03-28-2022 OPERATIVE NO Normal [facility] PT panel Coag (PPP)on 2021 INR Coag (PPP) [Relative time] 1.0 {INR} Normal 0.9-1.3 [facility] Comment on above: Order Comment: Lauren santana Type: BLOOD SPECIMENOrdering Facility: [facility] Address: [address] [place] [address] Result Comment: Sariah min K Antagonist (VKA) Therapeutic Range: INR 2 to 3 (Target INR of 2.5)Note: For patients treated with VKA drugs, such as warfarin, the [employer] 2012 Guideline recommends [...] of 3).Rosales BETANCOURT, et al. Chest 2012, 141:7S-47SGloria RA, et al. [facility] 2017, 70: 252-289 Performed By: #### 3 4528-0, 80244-6 ####[facility] LABORATORYCLIA [id number] [place] [address] [place] PT Coag (PPP) [Time] 10.8 s Normal 9.7-13.0 [facility] Comment on above: Order Comment: Lauren santana Type: BLOOD SPECIMENOrdering Facility: [facility] Address: [address] [place] [address] Performed By: #### 3 4528-0, 78296-3 ####[facility]ITAL[facility]IA [id number] [place] [address] [place] Phosphate SerPl-mCncon 03-28 Phosphate [Mass/Vol] 3.0 mg/dL Normal 2.7-4.8 [facility] Comment on above: Order Comment: Lauren santana Type: BLOOD SPECIMENOrdering Facility: [facility] Address: [address] [place] [address] Performed By: #### 1 9123-9, 2777-1, 14010-2 ####[facility] LABORATORYCLIA [id number] [place] [address] [place] Platelets bldon 03-28-2022 Platelets (Bld) [#/Vol] 332 10*3/uL 150-450 [facility] Work Phone: SARS-CoV-2 RNA Resp Ql NADEEM+p robeon 03-28-2022 SARS-CoV-2 (COVID-19) RNA NADEEM+probe Ql (Resp) COVID 19 RESULT: SARS-CoV-2 (Agent of COVID-19) Not Detected by RT-PCR or equivalent method. This test has been authorized by FDA under an Emergency Use Authorization (EUA). Normal [facility] Comment on above: Performed By: #### 9 4500-6 ####[facility] LABORATORYCLIA [id number] [address] SURGICAL PATHOLOGYon 022 CASE REPORT [facility] Comment on above: Order Comment: Speci men Type: BLOOD CLOT SAMPLEOrdering Facility: [facility] Address: [address] [place] [address] Result Comment: Surg ical Pathology Report Case: [id number] Provider: Bryce Greer MD Collected: 03/28/2022 04:34 PMOrdering Location: [place] [facility] Received: 03/29/2022 08:17 AMPathologist: JANAE Franklinpecimen: CLOT (DO NOT USE FOR BONE MARROW), RIGHT SUBDURAL HEMATOMA Performed By: #### S ####[facility] LABORATORYCLIA [id number] [address] FINAL DIAGNOSIS [facility] Comment on above: Order Comment: Speci men Type: BLOOD CLOT SAMPLEOrdering Facility: [facility] Address: [address] [place] [address] Result Comment: A. R ight subdural hematoma, evacuation:-- Fragments of blood clot. Performed By: #### S ####[facility] LABORATORYCLIA [id number] [address] FINAL PERFORMING LAB Normal [facility] Comment on above: Order Comment: Speci men Type: BLOOD CLOT SAMPLEOrdering Facility: [facility] Address: [address] [place] [address] Result Comment: Diag nostic interpretation performed at [facility], [address] [place] [address] CLIA# [id number] Director: Dave Ramirez M.D. Performed By: #### S ####[facility] LABORATORYCLIA [id number] [place] [address] [facility] DES[facility] Normal [facility] Comment on above: Order Comment: Speci men Type: BLOOD CLOT SAMPLEOrdering Facility: [facility] Address: [address] [place] [phone] Result Comment: A. C LOT (DO NOT USE FOR BONE MARROW)A. Received in formalin with right subdural hematoma are multiple red-brown hemorrhagic segments of material consistent with thrombus aggregating to 12.0 x 8.1 x 3.7 cm. Cylinder Dyer sections are submitted in formalin in 2 cassettes. Gross examination performed at [facility], [address] [place], [place] [address]BR[place] April 01, 2022 8:23 AM Performed By: #### S ####[facility] LABORATORYCLIA [id number] [address] [place] Serum or plasma calcium joaquin urement (mass/volume)on 03-28-2022 Calcium [Mass/Vol] 9.3 mg/dL 8.5-10.1 [facility] Work Phone: Serum or plasma creatinine m easurement (mass/volume)on 03-28-2022 Creatinine [Mass/Vol] 0.56 mg/dL 0.55-1.02 [facility] Work Phone: Comment on above: The validity of the calculated GFR & GFRAA in patients over 70 years has not been determined. Clinical correlation is essential. Serum or plasma urea nitroge n measurement (mass/volume)on 03-28-2022 Urea nitrogen [Mass/Vol] 12 mg/dL 7-18 [facility] Work Phone: TYPE + SCREENon 03-28-2022 ABO A Normal [facility] Comment on above: Order Comment: Speci men Type: BLOOD SPECIMENOrdering Facility: [facility] Address: [address] [place] [phone] Performed By: #### T SCR ####[facility] BLOOD BANKCLIA [id number] [address] [place] HISTORICAL AB SCR STATUS Negative Normal [facility] Comment on above: Order Comment: Speci men Type: BLOOD SPECIMENOrdering Facility: [facility] Address: [address] [place] [address] Performed By: #### T SCR ####[facility] BLOOD BANKCLIA [id number] [address] Rh Nom (Bld) Positive Normal [facility] Comment on above: Order Comment: Speci men Type: BLOOD SPECIMENOrdering Facility: [facility] Address: [address] [place] [address] Performed By: #### T SCR ####[facility] BLOOD BANKCLIA [id number] [address] TYPE AND SCREEN EXPIRATION 03/31/2022 23:59 Normal [facility] Comment on above: Order Comment: Speci men Type: BLOOD SPECIMENOrdering Facility: [facility] Address: [address] [place] [address] Performed By: #### T SCR ####[facility] BLOOD BANKCLIA [id number] [address] Thin prep Papanicolaou smear with manual screeningon 03-28-2022 Thin prep Papanicolaou smear with manual screening 7 5-15 [facility] Work Phone: aPTT PPPon 03-28-2022 aPTT Coag (PPP) [Time] 27.4 s Normal 23.0-32.4 [facility] Comment on above: Order Comment: Speci men Type: BLOOD SPECIMENOrdering Facility: [facility] Address: [address] [place] [address] Performed By: #### 3 4528-0, 42441-6 ####[facility] LABORATORYCLIA [id number] [address] CNOVon 03-12-2022 CNOV Normal [facility] Absolute lymphocyte counton 03-04-2022 Lymphocytes Auto (Unsp spec) [#/Vol] 1.96 10*3/uL 0.83-4.51 [facility] Work Phone: Basophil percentageon 2021 Basophils/100 WBC (Bld) 0.3 % 0-1 [facility] Work Phone: Eosinophils/100 WBC (Bld) 1.4 % 0-5 [facility] Work Phone: Neutrophils (Bld) [#/Vol] 6.6 10*3/uL 2.0-7.7 [facility] Work Phone: Neutrophils/100 WBC (Bld) 69.4 % 47-70 [facility] Work Phone: WBC (Bld) [#/Vol] 9.4 10*3/uL 4.4-11.0 [facility] Work Phone: Blood erythrocytes count (nu mber/volume)on 03-04-2022 RBC (Bld) [#/Vol] 3.76 10*6/uL 4.2-5.4 [facility] Work Phone: Blood hemoglobin measurement (mass/volume)on 03-04-2022 Hemoglobin (Bld) [Mass/Vol] 11.7 g/dL 12.0-15.0 [facility] Work Phone: Blood lymphocytes/100 leukoc yteson 03-04-2022 Lymphocytes/100 WBC (Bld) 20.8 % 19-41 [facility] Work Phone: Blood monocytes/100 leukocyt eson 03-04-2022 Monocytes/100 WBC (Bld) 7.6 % 0-10 [facility] Work Phone: Blood platelet mean volumeon 03-04-2022 Platelet mean volume (Bld) [Entitic vol] 9.0 fL 6.2-12.0 [facility] Work Phone: Determination of erythrocyte mean corpuscular volume (MCV)on 03-04-2022 MCV (RBC) [Entitic vol] 94.7 fL 81-99 [facility] Work Phone: Hematocrit Auto (Bld) [Volum e fraction]on 03-04-2022 Hematocrit (Bld) [Volume fraction] 35.6 % 37-47 [facility] Work Phone: Iron measurement (mass/mass) on 03-04-2022 Iron (Unsp spec) [Mass/Mass] 23 ug/dL 50-170 [facility] Work Phone: [phone] Laboratory - Hematology and Cell countson 03-04-2022 Erythrocyte distribution width (RBC) [Entitic vol] 56.5 fL 35.1-43.9 [facility] Work Phone: Erythrocyte distribution width (RBC) [Ratio] 16.4 % 11.6-14.6 [facility] Work Phone: Immature granulocytes/100 WBC (Bld) 0.500 % 0.0-0.9 [facility] Work Phone: Comment on above: IG% - Immature Granu locytes (promyelocytes, myelocytes and metamyelocytes) > 1% indicates that a LEFT SHIFT is Present. MCH (RBC) [Entitic mass] 31.1 pg 27.0-32.0 [facility] Work Phone: Nucleated RBC/100 WBC (Bld) [Ratio] 0 % 0-5 [facility] Work Phone: MCHC Auto (RBC) [Mass/Vol]on 03-04-2022 MCHC (RBC) [Mass/Vol] 32.9 g/dL 32-36 [facility] Work Phone: No Panel Informationon 03-04 Total Iron Binding Capacity 407 ug/dL 250-450 [facility] Work Phone: Platelets bldon 03-04-2022 Platelets (Bld) [#/Vol] 267 10*3/uL 150-450 [facility] Work Phone: Serum or plasma ferritin bryce surement (mass/volume)on 03-04-2022 Ferritin [Mass/Vol] 6 ng/mL 8-252 [facility] Work Phone: Serum or plasma iron saturat ion measurement (mass fraction)on 03-04-2022 Iron saturation [Mass fraction] 5.7 % 15.0-55.0 [facility] Work Phone: CNOVon 02-14-2022 CNOV Normal [facility] ANES POSTPROC EVALon 022 ANES POSTPROC EVAL Normal [facility] CASE MANAGEMon 02-04-2022 CASE MANAGEM Normal [facility] CNDSon 02-04-2022 CNDS Normal [facility] CONSULTon 02-03-2022 CONSULT Normal [facility] THERAPY NTon 02-03-2022 THERAPY NT Normal [facility] Basic metabolic 2000 panelon 02-02-2022 Anion gap [Moles/Vol] 9 mmol/L Normal 05-05 [facility] Comment on above: Order Comment: Speci men Type: BLOOD SPECIMENOrdering Facility: [facility] Address: [address] [place] [address] Performed By: #### 1 9123-9, 50417-8, 277- ####[facility] LABORATORYCLIA [id number] [place] [address] [place] Calcium [Mass/Vol] 7.7 mg/dL Low 8.5-10.2 [facility] Comment on above: Order Comment: Speci men Type: BLOOD SPECIMENOrdering Facility: [facility] Address: [address] [place] [address] Performed By: #### 1 9123-9, 18675-1, 277- ####[facility] LABORATORYCLIA [id number] [place] [address] [place] Chloride [Moles/Vol] 111 mmol/L High 97-105 [facility] Comment on above: Order Comment: Speci men Type: BLOOD SPECIMENOrdering Facility: [facility] Address: [address] [place] [address] Performed By: #### 1 9123-9, 65519-0, 277-1 ####[facility]ITALCLIA [id number] [place] [address] [place] CO2 [Moles/Vol] 22 mmol/L Normal 22-30 [facility] Comment on above: Order Comment: Speci men Type: BLOOD SPECIMENOrdering Facility: [facility] Address: [address] [place] [address] Performed By: #### 1 9123-9, 53283-0, 277- ####[facility]IA [id number] [address] Creatinine [Mass/Vol] 0.41 mg/dL Low 0.58-0.96 [facility] Comment on above: Order Comment: Speci men Type: BLOOD SPECIMENOrdering Facility: [facility] Address: [address] [place] [address] Performed By: #### 1 9123-9, 88071-8, 2776-08 ####[place] HOSPITALIA [id number] [address] ESTIMATED GLOMERULAR FILTRATION RATE 108 mL/min/1.73m??? Normal >=60 [facility] Comment on above: Order Comment: Speci men Type: BLOOD SPECIMENOrdering Facility: [facility] Address: [address] [place] [address] Result Comment: Ameena mated Glomerular Filtration Rate [...] actual GFR. Performed By: #### 1 9123-9, 72508-9, 2776-08 ####[place] HOSPITALIA [id number] [place] [id number] [place] Glucose [Mass/Vol] 149 mg/dL High 74-99 [facility] Comment on above: Order Comment: Speci men Type: BLOOD SPECIMENOrdering Facility: [facility] Address: [address] [place] [phone] Result Comment: The [employer] (ADA) provides guidance for cutoff [...] Standards of Medical Care in Diabetes 2016, [employer]. Diabetes Care. 2016.39(Suppl 1). Performed By: #### 1 9123-9, 77320-8, 2776-08 ####[facility] LABORATORYCLIA [id number] [place] [address] [place] Potassium [Moles/Vol] 3.8 mmol/L Normal 3.7-5.1 [facility] Comment on above: Order Comment: Speci men Type: BLOOD SPECIMENOrdering Facility: [facility] Address: [address] [address] Performed By: #### 1 9123-9, , 2776-08 ####[facility] LABORATORYCLIA [id number] [place] [address] [place] Sodium [Moles/Vol] 142 mmol/L Normal 136-144 [facility] Comment on above: Order Comment: Speci men Type: BLOOD SPECIMENOrdering Facility: [facility] Address: [address] Performed By: #### 1 9123-9, 34326-2, 2776-08 ####[facility] LABORATORYCLIA [id number] [place] [address] [place] Urea nitrogen [Mass/Vol] 13 mg/dL Normal 7-21 [facility] Comment on above: Order Comment: Speci men Type: BLOOD SPECIMENOrdering Facility: [facility] Address: [address] [place] [address] Performed By: #### 1 9123-9, 66605-0, 2777-1 ####[facility] LABORATORYCLIA [id number] [address] CBC panel Auto (Bld)on 02-02 Erythrocyte distribution width (RBC) [Ratio] 15.3 % High 11.5-15.0 [facility] Comment on above: Order Comment: Speci men Type: BLOOD SPECIMENOrdering Facility: [facility] Address: [address] [place] [address] Performed By: #### 5 8410-2 ####[facility] LABORATORYCLIA [id number] [address] Hematocrit (Bld) [Volume fraction] 42.2 % Normal 36.0-46.0 [facility] Comment on above: Order Comment: Speci men Type: BLOOD SPECIMENOrdering Facility: [facility] Address: [address] [place] [address] Performed By: #### 5 8410-2 ####[facility] LABORATORYCLIA [id number] [address] Hemoglobin (Bld) [Mass/Vol] 13.0 g/dL Normal 11.5-15.5 [facility] Comment on above: Order Comment: Speci men Type: BLOOD SPECIMENOrdering Facility: [facility] Address: [address] [place] [address] Performed By: #### 5 8410-2 ####[facility] LABORATORYCLIA [id number] [address] MCH (RBC) [Entitic mass] 30.1 pg Normal 26.0-34.0 [facility] Comment on above: Order Comment: Speci men Type: BLOOD SPECIMENOrdering Facility: [facility] Address: [address] [place] [address] Performed By: #### 5 8410-2 ####[facility] LABORATORYCLIA [id number] [address] [place] MCHC (RBC) [Mass/Vol] 30.8 g/dL Normal 30.5-36.0 [facility] Comment on above: Order Comment: Speci men Type: BLOOD SPECIMENOrdering Facility: [facility] Address: [address] [place] [address] Performed By: #### 5 8410-2 ####[facility] LABORATORYCLIA [id number] [address] [place] MCV (RBC) [Entitic vol] 97.7 fL Normal 80.0-100.0 [facility] Comment on above: Order Comment: Speci men Type: BLOOD SPECIMENOrdering Facility: [facility] Address: [address] [place] [address] Performed By: #### 5 8410-2 ####[facility] LABORATORYCLIA [id number] [address] [place] Nucleated RBC (Bld) [#/Vol] 10*3/uL Normal <0.01 [facility] Comment on above: Order Comment: Speci men Type: BLOOD SPECIMENOrdering Facility: [facility] Address: [address] [place] [address] Performed By: #### 5 8410-2 ####[facility] LABORATORYCLIA [id number] [address] [place] Platelet mean volume (Bld) [Entitic vol] 9.4 fL Normal 9.0-12.7 [facility] Comment on above: Order Comment: Speci men Type: BLOOD SPECIMENOrdering Facility: [facility] Address: [address] [place] [address] Performed By: #### 5 8410-2 ####[facility] LABORATORYCLIA [id number] [address] [place] Platelets (Bld) [#/Vol] 248 10*3/uL Normal 150-400 [facility] Comment on above: Order Comment: Speci men Type: BLOOD SPECIMENOrdering Facility: [facility] Address: [address] [place] [address] Performed By: #### 5 8410-2 ####[facility] LABORATORYCLIA [id number] [address] [place] OF [facility] RBC (Bld) [#/Vol] 4.32 10*6/uL Normal 3.90-5.20 [facility] Comment on above: Order Comment: Speci men Type: BLOOD SPECIMENOrdering Facility: [facility] Address: [address] [place] [address] Performed By: #### 5 8410-2 ####[facility] LABORATORYCLIA [id number] [address] WBC (Bld) [#/Vol] 13.80 10*3/uL High 3.70-11.00 [facility] Comment on above: Order Comment: Speci men Type: BLOOD SPECIMENOrdering Facility: [facility] Address: [address] [place] [address] Performed By: #### 5 8410-2 ####[facility] LABORATORYCLIA [id number] [address] Magnesium SerPl-mCncon 02-02 Magnesium [Mass/Vol] 1.7 mg/dL Normal 1.7-2.3 [facility] Comment on above: Order Comment: Speci men Type: BLOOD SPECIMENOrdering Facility: [facility] Address: [address] [place] [address] Performed By: #### 1 9123-9, 76643-1, 2777-1 ####[facility] LABORATORYCLIA [id number] [address] NURSING PROGon 02-02-2022 NURSING PROG Normal [facility] PT panel Coag (PPP)on 2021 INR Coag (PPP) [Relative time] 1.0 {INR} Normal 0.9-1.3 [facility] Comment on above: Order Comment: Speci men Type: BLOOD SPECIMENOrdering Facility: [facility] Address: [address] [place] [address] Result Comment: Sariah min K Antagonist (VKA) Therapeutic Range: INR 2 to 3 (Target INR of 2.5)Note: For patients treated with VKA drugs, such as warfarin, the [employer] 2012 Guideline recommends [...] al. Chest 2012, 141:7S-47SNishgonzalo RA, et al. [facility] 2017, 70: 252-289 Performed By: #### 1 4979-9, 46613-2 ####[facility] LABORATORYCLIA [id number] [place] [address] [place] PT Coag (PPP) [Time] 11.5 s Normal 9.7-13.0 [facility] Comment on above: Order Comment: Speci esther Type: BLOOD SPECIMENOrdering Facility: [facility] Address: [address] [place] [address] Performed By: #### 1 4979-9, 49782-3 ####[facility] LABORATORYCLIA [id number] [place] [address] [place] Phosphate SerPl-mCncon 02-02 Phosphate [Mass/Vol] 2.4 mg/dL Low 2.7-4.8 [facility] Comment on above: Order Comment: Lucreciai men Type: BLOOD SPECIMENOrdering Facility: [facility] Address: [address] [place] [address] Performed By: #### 1 9123-9, 87622-7, 2777-1 ####[facility] LABORATORYCLIA [id number] [place] [address] [place] THERAPY NTon 02-02-2022 THERAPY NT Normal [facility] THERAPY NT Normal [facility] aPTT PPPon 02-02-2022 aPTT Coag (PPP) [Time] 27.8 s Normal 23.0-32.4 [facility] Comment on above: Order Comment: Speci men Type: BLOOD SPECIMENOrdering Facility: [facility] Address: [address] [place] [address] Performed By: #### 1 4979-9, 89184-7 ####[facility] LABORATORYCLIA [id number] [place] [address] [place] ANES PRE-OPon 02-01-2022 ANES PRE-OP Normal [facility] HISTORY PHYSICALon 2 HISTORY PHYSICAL Normal [facility] OPERATIVE NOon 02-01-2022 OPERATIVE NO Normal [facility] STAPH AUREUS PCRon 2 S. aureus and MRSA panel NADEEM+probe (Nose) Normal Negative [facility] Comment on above: Order Comment: Speci men Type: SWAB OF INTERNAL NOSEOrdering Facility: [facility] Address: [address] [place] [address] Result Comment: Nega tive for Staphylococcus aureus by PCR.Negative for MRSA by PCR Performed By: #### S APCR ####[facility] LABORATORYCLIA [id number] [place] [address] [place] Basic metabolic 2000 panelon 01-22-2022 Anion gap [Moles/Vol] 12 mmol/L Normal 9-18 [facility] Comment on above: Order Comment: Speci men Type: BLOOD SPECIMENOrdering Facility: [facility] Address: [address] [place] [address] Performed By: #### 2 4321-2 ####[facility] LABORATORYCLIA [id number] [place] [address] [place] Calcium [Mass/Vol] 9.7 mg/dL Normal 8.5-10.2 [facility] Comment on above: Order Comment: Speci men Type: BLOOD SPECIMENOrdering Facility: [facility] Address: [address] [address] Performed By: #### 2 4321-2 ####[facility] LABORATORYCLIA [id number] [address] [place] Chloride [Moles/Vol] 105 mmol/L Normal 97-105 [facility] Comment on above: Order Comment: Speci men Type: BLOOD SPECIMENOrdering Facility: [facility] Address: [address] [place] [address] Performed By: #### 2 4321-2 ####[facility] LABORATORYCLIA [id number] [address] [place] CO2 [Moles/Vol] 22 mmol/L Normal 22-30 [facility] Comment on above: Order Comment: Speci men Type: BLOOD SPECIMENOrdering Facility: [facility] Address: [address] [place] [address] Performed By: #### 2 4321-2 ####[facility] LABORATORYCLIA [id number] [address] [place] Creatinine [Mass/Vol] 0.47 mg/dL Low 0.58-0.96 [facility] Comment on above: Order Comment: Speci men Type: BLOOD SPECIMENOrdering Facility: [facility] Address: [address] [place] [address] Performed By: #### 2 4321-2 ####[facility] LABORATORYCLIA [id number] [address] ESTIMATED GLOMERULAR FILTRATION RATE 104 mL/min/1.73m??? Normal >=60 [facility] Comment on above: Order Comment: Speci men Type: BLOOD SPECIMENOrdering Facility: [facility] Address: [address] [place] [address] Result Comment: Ameean mated Glomerular Filtration Rate (eGFR) is calculated [...] actual GFR. Performed By: #### 2 4321-2 ####[facility] LABORATORYCLIA [id number] [place] [address] [place] Glucose [Mass/Vol] 91 mg/dL Normal 74-99 [facility] Comment on above: Order Comment: Lauren santana Type: BLOOD SPECIMENOrdering Facility: [facility] Address: [address] [phone] Result Comment: The [place] [employer] (ADA) provides guidance for cutoff [...] Standards of Medical Care in Diabetes 2016, [employer]. Diabetes Care. 2016.39(Suppl 1). Performed By: #### 2 4321-2 ####[facility] LABORATORYCLIA [id number] [place] [address] [place] Potassium [Moles/Vol] 4.6 mmol/L Normal 3.7-5.1 [facility] Comment on above: Order Comment: Lauren santana Type: BLOOD SPECIMENOrdering Facility: [facility] Address: [address] [phone] Performed By: #### 2 4321-2 ####[facility] LABORATORYCLIA [id number] [place] [address] [place] Sodium [Moles/Vol] 139 mmol/L Normal 136-144 [facility] Comment on above: Order Comment: Lauren santana Type: BLOOD SPECIMENOrdering Facility: [facility] Address: [address] [address] Performed By: #### 2 4321-2 ####[facility] LABORATORYCLIA [id number] [address] [place] [facility] Urea nitrogen [Mass/Vol] 13 mg/dL Normal 7-21 [facility] Comment on above: Order Comment: Speci men Type: BLOOD SPECIMENOrdering Facility: [facility] Address: [address] [place] [address] Performed By: #### 2 4321-2 ####[facility] LABORATORYCLIA [id number] [address] [place] CBC panel Auto (Bld)on 01-22 Erythrocyte distribution width (RBC) [Ratio] 15.3 % High 11.5-15.0 [facility] Comment on above: Order Comment: Speci men Type: BLOOD SPECIMENOrdering Facility: [facility] Address: [address] [place] [address] Performed By: #### 5 8410-2 ####[facility] LABORATORYCLIA [id number] [address] [place] [facility] Hematocrit (Bld) [Volume fraction] 46.3 % High 36.0-46.0 [facility] Comment on above: Order Comment: Speci men Type: BLOOD SPECIMENOrdering Facility: [facility] Address: [address] [place] [address] Performed By: #### 5 8410-2 ####[facility] LABORATORYCLIA [id number] [address] Hemoglobin (Bld) [Mass/Vol] 14.8 g/dL Normal 11.5-15.5 [facility] Comment on above: Order Comment: Speci men Type: BLOOD SPECIMENOrdering Facility: [facility] Address: [address] [place] [address] Performed By: #### 5 8410-2 ####[facility] LABORATORYCLIA [id number] [address] [place] MCH (RBC) [Entitic mass] 30.3 pg Normal 26.0-34.0 [facility] Comment on above: Order Comment: Speci men Type: BLOOD SPECIMENOrdering Facility: [facility] Address: [address] [place] [address] Performed By: #### 5 8410-2 ####[facility] LABORATORYCLIA [id number] [address] MCHC (RBC) [Mass/Vol] 32.0 g/dL Normal 30.5-36.0 [facility] Comment on above: Order Comment: Speci men Type: BLOOD SPECIMENOrdering Facility: [facility] Address: [address] [place] [address] Performed By: #### 5 8410-2 ####[facility] LABORATORYCLIA [id number] [address] [place] MCV (RBC) [Entitic vol] 94.7 fL Normal 80.0-100.0 [facility] Comment on above: Order Comment: Speci men Type: BLOOD SPECIMENOrdering Facility: [facility] Address: [address] [place] [address] Performed By: #### 5 8410-2 ####[facility] LABORATORYCLIA [id number] [address] Nucleated RBC (Bld) [#/Vol] 10*3/uL Normal <0.01 [facility] Comment on above: Order Comment: Speci men Type: BLOOD SPECIMENOrdering Facility: [facility] Address: [address] [place] [address] Performed By: #### 5 8410-2 ####[facility] LABORATORYCLIA [id number] [address] Platelet mean volume (Bld) [Entitic vol] 9.6 fL Normal 9.0-12.7 [facility] Comment on above: Order Comment: Speci men Type: BLOOD SPECIMENOrdering Facility: [facility] Address: [address] [place] [address] Performed By: #### 5 8410-2 ####[facility] LABORATORYCLIA [id number] [address] Platelets (Bld) [#/Vol] 295 10*3/uL Normal 150-400 [facility] Comment on above: Order Comment: Speci men Type: BLOOD SPECIMENOrdering Facility: [facility] Address: [address] [place] [address] Performed By: #### 5 8410-2 ####[facility] LABORATORYCLIA [id number] [address] OF [facility] RBC (Bld) [#/Vol] 4.89 10*6/uL Normal 3.90-5.20 [facility] Comment on above: Order Comment: Speci men Type: BLOOD SPECIMENOrdering Facility: [facility] Address: [address] [place] [address] Performed By: #### 5 8410-2 ####[facility] LABORATORYCLIA [id number] [address] WBC (Bld) [#/Vol] 8.53 10*3/uL Normal 3.70-11.00 [facility] Comment on above: Order Comment: Speci men Type: BLOOD SPECIMENOrdering Facility: [facility] Address: [address] [place] [address] Performed By: #### 5 8410-2 ####[facility] LABORATORYCLIA [id number] [address] HISTORY PHYSICALon HISTORY PHYSICAL Normal [facility] PT panel Coag (PPP)on 2021 INR Coag (PPP) [Relative time] 1.0 {INR} Normal 0.9-1.3 [facility] Comment on above: Order Comment: Speci men Type: BLOOD SPECIMENOrdering Facility: [facility] Address: [address] [place] [address] Result Comment: Sariah min K Antagonist (VKA) Therapeutic Range: INR 2 to 3 (Target INR of 2.5)Note: For patients treated with VKA drugs, such as warfarin, the [employer] 2012 Guideline recommends [...] al. Chest 2012, 141:7S-47SNishimura RA, et al. [facility] 2017, 70: 252-289 Performed By: #### 1 4979-9, 28888-8 ####[facility] LABCLIA [id number] [place] [address] [place] [facility] PT Coag (PPP) [Time] 10.0 s Normal 9.7-13.0 [facility] Comment on above: Order Comment: Speci men Type: BLOOD SPECIMENOrdering Facility: [facility] Address: [address] [place] [address] Performed By: #### 1 4979-9, 16343-9 ####[facility] LABCLIA [id number] [place] [address] [place] [facility] aPTT PPPon 01-22-2022 aPTT Coag (PPP) [Time] 28.9 s Normal 23.0-32.4 [facility] Comment on above: Order Comment: Speci men Type: BLOOD SPECIMENOrdering Facility: [facility] Address: [address] [place] [address] Performed By: #### 1 4979-9, 07146-5 ####[facility] LABCLIA [id number] [place] [address] [place] CNCOon 01-17-2022 CNCO Letter Text Normal [facility] CNOVon 01-15-2022 CNOV Normal [facility] CT BRAIN WO IVCONon 01-16-[address] BRAIN WO IVCON Normal [facility] Absolute lymphocyte counton 01-07-2022 Lymphocytes Auto (Unsp spec) [#/Vol] 1.75 10*3/uL 0.83-4.51 [facility] Work Phone: Basophil percentageon 2021 Basophils/100 WBC (Bld) 0.3 % 0-1 [facility] Work Phone: Bilirubin [Mass/Vol] 0.30 mg/dL 0.20-1.00 [facility] Work Phone: Comment on above: For patients on eltr ombopag therapy, use of Dimension [place] TBIL is not recommended. Chloride [Moles/Vol] 109 mmol/L 98-107 [facility] Work Phone: [phone] Cholesterol [Mass/Vol] 175 mg/dL <200 [facility] Work Phone: Comment on above: <200 mg/dL Desirable 200-240 mg/dL Borderline >240 mg/dL High Risk Eosinophils/100 WBC (Bld) 1.1 % 0-5 [facility] Work Phone: Glucose [Mass/Vol] 89 mg/dL 74-106 [facility] Work Phone: [phone] Neutrophils (Bld) [#/Vol] 5.4 10*3/uL 2.0-7.7 [facility] Work Phone: Neutrophils/100 WBC (Bld) 68.0 % 47-70 [facility] Work Phone: Potassium [Moles/Vol] 4.6 mmol/L 3.5-5.1 [facility] Work Phone: Protein [Mass/Vol] 7.7 g/dL 6.4-8.2 [facility] Work Phone: Sodium [Moles/Vol] 140 mmol/L 136-145 [facility] Work Phone: Triglyceride [Mass/Vol] 136 mg/dL <199 [facility] Work Phone: Comment on above: The drugs N-Acetylcy steine and Metamizole may falsely depress this assay.Serum Triglycerides Reference Interval Normal <150 mg/dL Borderline high 150 - 199 mg/dL High 200 - 499 mg/dL Very High > or = 500 mg/dL WBC (Bld) [#/Vol] 7.9 10*3/uL 4.4-11.0 [facility] Work Phone: Blood erythrocytes count (nu mber/volume)on 01-07-2022 RBC (Bld) [#/Vol] 4.69 10*6/uL 4.2-5.4 [facility] Work Phone: Blood hemoglobin measurement (mass/volume)on 01-07-2022 Hemoglobin (Bld) [Mass/Vol] 14.3 g/dL 12.0-15.0 [facility] Work Phone: Blood lymphocytes/100 leukoc yteson 01-07-2022 Lymphocytes/100 WBC (Bld) 22.1 % 19-41 [facility] Work Phone: Blood monocytes/100 leukocyt eson 01-07-2022 Monocytes/100 WBC (Bld) 8.1 % 0-10 [facility] Work Phone: Blood platelet mean volumeon 01-07-2022 Platelet mean volume (Bld) [Entitic vol] 9.5 fL 6.2-12.0 [facility] Work Phone: Determination of erythrocyte mean corpuscular volume (MCV)on 01-07-2022 MCV (RBC) [Entitic vol] 98.9 fL 81-99 [facility] Work Phone: Hematocrit Auto (Bld) [Volum e fraction]on 01-07-2022 Hematocrit (Bld) [Volume fraction] 46.4 % 37-47 [facility] Work Phone: Iron measurement (mass/mass) on 01-07-2022 Iron (Unsp spec) [Mass/Mass] 55 ug/dL 50-170 [facility] Work Phone: Laboratory - Chemistry and C hemistry - challengeon 01-07-2022 ALP [Catalytic activity/Vol] 74 U/L 45-117 [facility] Work Phone: ALT [Catalytic activity/Vol] 18 U/L 13-56 [facility] Work Phone: CO2 [Moles/Vol] 24.0 mmol/L 21.0-32.0 [facility] Work Phone: Globulin (S) [Mass/Vol] 4.0 g/dL 2.2-4.2 [facility] Work Phone: Urea nitrogen/Creatinine [Mass ratio] 27.1 mg/mg 10-20 [facility] Work Phone: Laboratory - Hematology and Cell countson 01-07-2022 Erythrocyte distribution width (RBC) [Entitic vol] 57.2 fL 35.1-43.9 [facility] Work Phone: Erythrocyte distribution width (RBC) [Ratio] 15.6 % 11.6-14.6 [facility] Work Phone: Immature granulocytes/100 WBC (Bld) 0.400 % 0.0-0.9 [facility] Work Phone: Comment on above: IG% - Immature Granu locytes (promyelocytes, myelocytes and metamyelocytes) > 1% indicates that a LEFT SHIFT is Present. MCH (RBC) [Entitic mass] 30.5 pg 27.0-32.0 [facility] Work Phone: Nucleated RBC/100 WBC (Bld) [Ratio] 0 % 0-5 [facility] Work Phone: MCHC Auto (RBC) [Mass/Vol]on 01-07-2022 MCHC (RBC) [Mass/Vol] 30.8 g/dL 32-36 [facility] Work Phone: No Panel Informationon 01-07 Estimated GFR (MDRD) Amer 141 mL/min >60 [facility] Work Phone: Comment on above: GFR Calc Estimated GFR (MDRD) Non-Af Amer 116 mL/min >60 [facility] Work Phone: Comment on above: Non- GFR Calc Total Iron Binding Capacity 396 ug/dL 250-450 [facility] Work Phone: Urine Microalbumin/Creatinine Ratio 46.0 mg/g CRE <30 [facility] Work Phone: Platelets bldon 01-07-2022 Platelets (Bld) [#/Vol] 344 10*3/uL 150-450 [facility] Work Phone: Serum or plasma albumin joaquin urement (mass/volume)on 01-07-2022 Albumin [Mass/Vol] 3.7 g/dL 3.2-5.0 [facility] Work Phone: Serum or plasma albumin/glob ulin mass ratioon 01-07-2022 Albumin/Globulin [Mass ratio] 0.9 {ratio} 0.9-2.4 [facility] Work Phone: Serum or plasma calcium joaquin urement (mass/volume)on 01-07-2022 Calcium [Mass/Vol] 9.5 mg/dL 8.5-10.1 [facility] Work Phone: Serum or plasma cholesterol in HDL measurement (mass/volume)on 01-07-2022 Cholesterol in HDL [Mass/Vol] 50 mg/dL >40 [facility] Work Phone: Comment on above: The drugs N-Acetylcy steine and Metamizole may falsely depress this assay. Reference Range HDL <40 mg/dL Low HDL Cholesterol HDL >or= 60 mg/dL High HDL Cholesterol Serum or plasma cholesterol in VLDL measurement (mass/volume)on 01-07-2022 Cholesterol in VLDL [Mass/Vol] 27 mg/dL 5-40 [facility] Work Phone: Serum or plasma creatinine m easurement (mass/volume)on 01-07-2022 Creatinine [Mass/Vol] 0.55 mg/dL 0.55-1.02 [facility] Work Phone: Comment on above: The validity of the calculated GFR & GFRAA in patients over 70 years has not been determined. Clinical correlation is essential. Serum or plasma ferritin bryce surement (mass/volume)on 01-07-2022 Ferritin [Mass/Vol] 28 ng/mL 8-252 [facility] Work Phone: Serum or plasma low density lipoprotein (LDL) cholesterol measurement (mass/volume)on 01-07-2022 Cholesterol in LDL [Mass/Vol] 98 mg/dL 0-130 [facility] Work Phone: Serum or plasma urea nitroge n measurement (mass/volume)on 01-07-2022 Urea nitrogen [Mass/Vol] 15 mg/dL 7-18 [facility] Work Phone: Thin prep Papanicolaou smear with manual screeningon 01-07-2022 Thin prep Papanicolaou smear with manual screening 9 U/L 15-37 [facility] Work Phone: Thin prep Papanicolaou smear with manual screening 7 5-15 [facility] Work Phone: Thin prep Papanicolaou smear with manual screening 9.1 mg/L NO RANGE EST. [facility] Work Phone: Urine creatinine measurement (mass/volume)on 01-07-2022 Creatinine (U) [Mass/Vol] 19.80 mg/dL NO RANGE EST. [facility] Work Phone: Whole blood hemoglobin A1c/t otal hemoglobin ratio (mass fraction)on 01-07-2022 HbA1c (Bld) [Mass fraction] 5.4 % 3.8-5.6 [facility] Work Phone: Comment on above: Normal < 5.7 % Predi abetic 5.7 - 6.4 % Diabetic >or= 6.5 % Please note range changes. CNOVon 12-18-2021 CNOV Normal [facility] CT BRAIN WO IVCONon 12-19-19 CT BRAIN WO IVCON Normal [facility] Absolute lymphocyte counton 12-06-2021 Lymphocytes Auto (Unsp spec) [#/Vol] 1.42 10*3/uL 0.83-4.51 [facility] Work Phone: Basophil percentageon 2021 Basophil percentage 0 SEEN /hpf 0-5 [facility] Work Phone: Basophils/100 WBC (Bld) 0.4 % 0-1 [facility] Work Phone: Bilirubin [Mass/Vol] 0.30 mg/dL 0.20-1.00 [facility] Work Phone: Comment on above: For patients on eltr ombopag therapy, use of Dimension [place] TBIL is not recommended. Chloride [Moles/Vol] 105 mmol/L 98-107 [facility] Work Phone: [phone] Cholesterol [Mass/Vol] 166 mg/dL <200 [facility] Work Phone: Comment on above: <200 mg/dL Desirable 200-240 mg/dL Borderline >240 mg/dL High Risk Eosinophils/100 WBC (Bld) 0.8 % 0-5 [facility] Work Phone: Glucose [Mass/Vol] 118 mg/dL 74-106 [facility] Work Phone: Comment on above: Fasting Glucose resu lt from 100 to 125 mg/dL suggests IMPAIRED HOMEOSTASIS per A.D.A. criteria. Neutrophils (Bld) [#/Vol] 5.0 10*3/uL 2.0-7.7 [facility] Work Phone: Neutrophils/100 WBC (Bld) 69.3 % 47-70 [facility] Work Phone: Potassium [Moles/Vol] 4.5 mmol/L 3.5-5.1 [facility] Work Phone: Protein [Mass/Vol] 7.3 g/dL 6.4-8.2 [facility] Work Phone: Sodium [Moles/Vol] 138 mmol/L 136-145 [facility] Work Phone: Triglyceride [Mass/Vol] 177 mg/dL <199 [facility] Work Phone: Comment on above: The drugs N-Acetylcy steine and Metamizole may falsely depress this assay.Serum Triglycerides Reference Interval Normal <150 mg/dL Borderline high 150 - 199 mg/dL High 200 - 499 mg/dL Very High > or = 500 mg/dL WBC (Bld) [#/Vol] 7.3 10*3/uL 4.4-11.0 [facility] Work Phone: Bilirubin Test strip Ql (U)o n 12-06-2021 Bilirubin Ql (U) Negative Negative [facility] Work Phone: Blood erythrocytes count (nu mber/volume)on 12-06-2021 RBC (Bld) [#/Vol] 4.03 10*6/uL 4.2-5.4 [facility] Work Phone: Blood hemoglobin measurement (mass/volume)on 12-06-2021 Hemoglobin (Bld) [Mass/Vol] 12.1 g/dL 12.0-15.0 [facility] Work Phone: Blood lymphocytes/100 leukoc yteson 12-06-2021 Lymphocytes/100 WBC (Bld) 19.6 % 19-41 [facility] Work Phone: Blood monocytes/100 leukocyt eson 12-06-2021 Monocytes/100 WBC (Bld) 9.6 % 0-10 [facility] Work Phone: Blood platelet mean volumeon 12-06-2021 Platelet mean volume (Bld) [Entitic vol] 9.0 fL 6.2-12.0 [facility] Work Phone: Determination of erythrocyte mean corpuscular volume (MCV)on 12-06-2021 MCV (RBC) [Entitic vol] 97.8 fL 81-99 [facility] Work Phone: Hematocrit Auto (Bld) [Volum e fraction]on 12-06-2021 Hematocrit (Bld) [Volume fraction] 39.4 % 37-47 [facility] Work Phone: Ketones Test strip Ql (U)on 12-06-2021 Ketones Ql (U) Negative Negative [facility] Work Phone: Laboratory - Chemistry and C hemistry - challengeon 12-06-2021 ALP [Catalytic activity/Vol] 69 U/L 45-117 [facility] Work Phone: ALT [Catalytic activity/Vol] 17 U/L 13-56 [facility] Work Phone: CO2 [Moles/Vol] 25.0 mmol/L 21.0-32.0 [facility] Work Phone: Globulin (S) [Mass/Vol] 3.7 g/dL 2.2-4.2 [facility] Work Phone: Urea nitrogen/Creatinine [Mass ratio] 25.3 mg/mg 10-20 [facility] Work Phone: Laboratory - Hematology and Cell countson 12-06-2021 Erythrocyte distribution width (RBC) [Entitic vol] 59.3 fL 35.1-43.9 [facility] Work Phone: Erythrocyte distribution width (RBC) [Ratio] 16.4 % 11.6-14.6 [facility] Work Phone: Immature granulocytes/100 WBC (Bld) 0.300 % 0.0-0.9 [facility] Work Phone: Comment on above: IG% - Immature Granu locytes (promyelocytes, myelocytes and metamyelocytes) > 1% indicates that a LEFT SHIFT is Present. MCH (RBC) [Entitic mass] 30.0 pg 27.0-32.0 [facility] Work Phone: Nucleated RBC/100 WBC (Bld) [Ratio] 0 % 0-5 [facility] Work Phone: MCHC Auto (RBC) [Mass/Vol]on 12-06-2021 MCHC (RBC) [Mass/Vol] 30.7 g/dL 32-36 [facility] Work Phone: Mucus LM Ql (Urine sed)on Mucus Ql (Urine sed) 0 SEEN /hpf [facility] Work Phone: Nitrite Test strip Ql (U)on 12-06-2021 Nitrite Ql (U) Negative Negative [facility] Work Phone: No Panel Informationon 12-06 Estimated GFR (MDRD) Amer 141 mL/min >60 [facility] Work Phone: Comment on above: GFR Calc Estimated GFR (MDRD) Non-Af Amer 117 mL/min >60 [facility] Work Phone: Comment on above: Non- GFR Calc Platelets bldon 12-06-2021 Platelets (Bld) [#/Vol] 406 10*3/uL 150-450 [facility] Work Phone: Protein Test strip Ql (U)on 12-06-2021 Protein Ql (U) Negative Negative [facility] Work Phone: Serum or plasma albumin joaquin urement (mass/volume)on 12-06-2021 Albumin [Mass/Vol] 3.6 g/dL 3.2-5.0 [facility] Work Phone: Serum or plasma albumin/glob ulin mass ratioon 12-06-2021 Albumin/Globulin [Mass ratio] 1.0 {ratio} 0.9-2.4 [facility] Work Phone: Serum or plasma calcium joaquin urement (mass/volume)on 12-06-2021 Calcium [Mass/Vol] 9.3 mg/dL 8.5-10.1 [facility] Work Phone: Serum or plasma cholesterol in HDL measurement (mass/volume)on 12-06-2021 Cholesterol in HDL [Mass/Vol] 49 mg/dL >40 [facility] Work Phone: Comment on above: The drugs N-Acetylcy steine and Metamizole may falsely depress this assay. Reference Range HDL <40 mg/dL Low HDL Cholesterol HDL >or= 60 mg/dL High HDL Cholesterol Serum or plasma cholesterol in VLDL measurement (mass/volume)on 12-06-2021 Cholesterol in VLDL [Mass/Vol] 35 mg/dL 5-40 [facility] Work Phone: Serum or plasma creatinine m easurement (mass/volume)on 12-06-2021 Creatinine [Mass/Vol] 0.55 mg/dL 0.55-1.02 [facility] Work Phone: Comment on above: The validity of the calculated GFR & GFRAA in patients over 70 years has not been determined. Clinical correlation is essential. Serum or plasma low density lipoprotein (LDL) cholesterol measurement (mass/volume)on 12-06-2021 Cholesterol in LDL [Mass/Vol] 82 mg/dL 0-130 [facility] Work Phone: Serum or plasma urea nitroge n measurement (mass/volume)on 12-06-2021 Urea nitrogen [Mass/Vol] 14 mg/dL 7-18 [facility] Work Phone: Squamous epithelial cells de tection in urine sediment by light microscopyon 12-06-2021 Epithelial cells.squamous LM Ql (Urine sed) 0 SEEN /hpf 5-10 [facility] Work Phone: Thin prep Papanicolaou smear with manual screeningon 12-06-2021 Thin prep Papanicolaou smear with manual screening 8 U/L 15-37 [facility] Work Phone: Thin prep Papanicolaou smear with manual screening 8 5-15 [facility] Work Phone: Urine blood detectionon 04- RBC Ql (U) Negative Negative [facility] Work Phone: RBC Ql (U) 0 SEEN /hpf 0-5 [facility] Work Phone: Urine clarityon 12-06-2021 Clarity (U) Clear Clear [facility] Work Phone: Urine color determinationon 12-06-2021 Color (U) Yellow Yellow [facility] Work Phone: Urine glucose detectionon Glucose Ql (U) Normal mg/dl Normal [facility] Work Phone: Urine leukocyte esterase det ection by dipstickon 12-06-2021 Leukocyte esterase Test strip Ql (U) Negative Negative [facility] Work Phone: Urine pHon 12-06-2021 pH (U) 7.0 [pH] 5.0 - 8.0 [facility] Work Phone: Urine sediment bacteria coun t by microscopy (number/high power field)on 12-06-2021 Bacteria LM.HPF (Urine sed) [#/Area] 0 /[HPF] None Seen [facility] Work Phone: Urine specific gravity measu rementon 12-06-2021 Specific gravity (U) [Rel density] 1.030 1.002-1.030 [facility] Work Phone: Urobilinogen Auto test strip Ql (U)on 12-06-2021 Urobilinogen Ql (U) Normal mg/dl Normal [facility] Work Phone: Whole blood hemoglobin A1c/t otal hemoglobin ratio (mass fraction)on 12-06-2021 HbA1c (Bld) [Mass fraction] 5.6 % 3.8-5.6 [facility] Work Phone: Comment on above: Normal < 5.7 % Predi abetic 5.7 - 6.4 % Diabetic >or= 6.5 % Please note range changes. Absolute lymphocyte counton 12-05-2021 Lymphocytes Auto (Unsp spec) [#/Vol] 1.55 10*3/uL 0.83-4.51 [facility] Work Phone: Basophil percentageon 2021 Basophils/100 WBC (Bld) 0.1 % 0-1 [facility] Work Phone: Eosinophils/100 WBC (Bld) 0.9 % 0-5 [facility] Work Phone: Neutrophils (Bld) [#/Vol] 5.4 10*3/uL 2.0-7.7 [facility] Work Phone: Neutrophils/100 WBC (Bld) 70.6 % 47-70 [facility] Work Phone: [phone] WBC (Bld) [#/Vol] 7.7 10*3/uL 4.4-11.0 [facility] Work [facility]: Blood erythrocytes count (nu mber/volume)on 12-05-2021 RBC (Bld) [#/Vol] 4.07 10*6/uL 4.2-5.4 [facility] Work Phone: Blood hemoglobin measurement (mass/volume)on 12-05-2021 Hemoglobin (Bld) [Mass/Vol] 12.5 g/dL 12.0-15.0 [facility] Work Phone: Blood lymphocytes/100 leukoc yteson 12-05-2021 Lymphocytes/100 WBC (Bld) 20.1 % 19-41 [facility] Work Phone: Blood monocytes/100 leukocyt eson 12-05-2021 Monocytes/100 WBC (Bld) 7.8 % 0-10 [facility] Work Phone: Blood platelet mean volumeon 12-05-2021 Platelet mean volume (Bld) [Entitic vol] 8.6 fL 6.2-12.0 [facility] Work Phone: Determination of erythrocyte mean corpuscular volume (MCV)on 12-05-2021 MCV (RBC) [Entitic vol] 98.5 fL 81-99 [facility] Work Phone: Hematocrit Auto (Bld) [Volum e fraction]on 12-05-2021 Hematocrit (Bld) [Volume fraction] 40.1 % 37-47 [facility] Work Phone: Iron measurement (mass/mass) on 12-05-2021 Iron (Unsp spec) [Mass/Mass] 36 ug/dL 50-170 [facility] Work Phone: Laboratory - Chemistry and C hemistry - challengeon 12-05-2021 Cobalamin (Vitamin B12) [Mass/Vol] 268 pg/mL 211-911 [facility] Laboratory - Hematology and Cell countson 12-05-2021 Erythrocyte distribution width (RBC) [Entitic vol] 59.8 fL 35.1-43.9 [facility] Work Phone: Erythrocyte distribution width (RBC) [Ratio] 16.4 % 11.6-14.6 [facility] Work Phone: [phone] Immature granulocytes/100 WBC (Bld) 0.500 % 0.0-0.9 [facility] Work Phone: Comment on above: IG% - Immature Granu locytes (promyelocytes, myelocytes and metamyelocytes) > 1% indicates that a LEFT SHIFT is Present. MCH (RBC) [Entitic mass] 30.7 pg 27.0-32.0 [facility] Work Phone: Nucleated RBC/100 WBC (Bld) [Ratio] 0 % 0-5 [facility] Work Phone: MCHC Auto (RBC) [Mass/Vol]on 12-05-2021 MCHC (RBC) [Mass/Vol] 31.2 g/dL 32-36 [facility] Work Phone: No Panel Informationon 12-05 Total Iron Binding Capacity 374 ug/dL 250-450 [facility] Work Phone: Platelets bldon 12-05-2021 Platelets (Bld) [#/Vol] 394 10*3/uL 150-450 [facility] Work Phone: Serum or plasma ferritin bryce surement (mass/volume)on 12-05-2021 Ferritin [Mass/Vol] 24 ng/mL 8-252 [facility] Work Phone: Serum or plasma iron saturat ion measurement (mass fraction)on 12-05-2021 Iron saturation [Mass fraction] 9.6 % 15.0-55.0 [facility] Work Phone: CNOVon 11-20-2021 CNOV Normal [facility] CT BRAIN WO IVCONon 11-21-[address] BRAIN WO IVCON Normal [facility] CASE MANAGEMon 11-14-2021 CASE MANAGEM Normal [facility] CASE MANAGEM Normal [facility] CNDSon 11-14-2021 CNDS Normal [facility] THERAPY NTon 11-14-2021 THERAPY NT Normal [facility] CASE MANAGEMon 11-13-2021 CASE MANAGEM Normal [facility] CASE MANAGEM Normal [facility] NUTRITIONon 11-13-2021 NUTRITION Normal [facility] THERAPY NTon 11-13-2021 THERAPY NT Normal [facility] THERAPY NT Normal [facility] Basic metabolic 2000 panelon 11-12-2021 Anion gap [Moles/Vol] 8 mmol/L Low 9-18 [facility] Comment on above: Order Comment: Speci men Type: BLOOD SPECIMENOrdering Facility: [facility] Address: [address] [place] [address] Performed By: #### 2 4321-2 ####[facility]ORATORYCLIA [id number] [place] [address] [place] Calcium [Mass/Vol] 8.8 mg/dL Normal 8.5-10.2 [facility] Comment on above: Order Comment: Speci men Type: BLOOD SPECIMENOrdering Facility: [facility] Address: [address] [place] [address] Performed By: #### 2 4321-2 ####[facility]ORATORYCLIA [id number] [place] [address] [place] Chloride [Moles/Vol] 106 mmol/L High 97-105 [facility] Comment on above: Order Comment: Speci men Type: BLOOD SPECIMENOrdering Facility: [facility] Address: [address] [place] [address] Performed By: #### 2 4321-2 ####[facility]ORATORYCLIA [id number] [place] [address] [place] CO2 [Moles/Vol] 25 mmol/L Normal 22-30 [facility] Comment on above: Order Comment: Lauren santana Type: BLOOD SPECIMENOrdering Facility: [facility] Address: [address] [address] Performed By: #### 2 4321-2 ####[facility] [id number] [address] OF [facility] Creatinine [Mass/Vol] 0.31 mg/dL Low 0.58-0.96 [facility] Comment on above: Order Comment: Speckatie santana Type: BLOOD SPECIMENOrdering Facility: [facility] Address: [address] [place] [address] Performed By: #### 2 4321-2 ####[place] [facility] HOSPITALIA [id number] [address] ESTIMATED GLOMERULAR FILTRATION RATE 116 mL/min/1.73m??? Normal >=60 [facility] Comment on above: Order Comment: Lauren santana Type: BLOOD SPECIMENOrdering Facility: [facility] Address: [address] [place] [address] Result Comment: Ameena mated Glomerular Filtration Rate [...] actual GFR. Performed By: #### 2 4321-2 ####[facility] LABORATORYCLIA [id number] [address] Glucose [Mass/Vol] 127 mg/dL High 74-99 [facility] Comment on above: Order Comment: Lauren santana Type: BLOOD SPECIMENOrdering Facility: [facility] Address: [address] [place] [address] Result Comment: The [place] [employer] (ADA) provides guidance for cutoff [...] Standards of Medical Care in Diabetes 2016, [employer]. Diabetes Care. 2016.39(Suppl 1). Performed By: #### 2 4321-2 ####[facility] LABORATORYCLIA [id number] [address] STATES OF [facility] Potassium [Moles/Vol] 4.0 mmol/L Normal 3.7-5.1 [facility] Comment on above: Order Comment: Speci men Type: BLOOD SPECIMENOrdering Facility: [facility] Address: [address] [place] [address] Performed By: #### 2 4321-2 ####[facility] LABORATORYCLIA [id number] [address] STATES [facility] Sodium [Moles/Vol] 139 mmol/L Normal 136-144 [facility] Comment on above: Order Comment: Speci men Type: BLOOD SPECIMENOrdering Facility: [facility] Address: [address] [place] [address] Performed By: #### 2 4321-2 ####[facility] LABORATORYCLIA [id number] [address] [place] [facility] Urea nitrogen [Mass/Vol] 12 mg/dL Normal 7-21 [facility] Comment on above: Order Comment: Speci men Type: BLOOD SPECIMENOrdering Facility: [facility] Address: [address] [place] [address] Performed By: #### 2 4321-2 ####[facility] LABORATORYCLIA [id number] [address] [place] CASE MANAGEMon 11-12-2021 CASE MANAGEM Normal [facility] CBC panel Auto (Bld)on 11-12 Erythrocyte distribution width (RBC) [Ratio] 16.9 % High 11.5-15.0 [facility] Comment on above: Order Comment: Speci men Type: BLOOD SPECIMENOrdering Facility: [facility] Address: [address] [place] [address] Performed By: #### 5 8410-2 ####[facility] LABORATORYCLIA [id number] [address] OF [facility] Hematocrit (Bld) [Volume fraction] 38.8 % Normal 36.0-46.0 [facility] Comment on above: Order Comment: Speci men Type: BLOOD SPECIMENOrdering Facility: [facility] Address: [address] [place] [address] Performed By: #### 5 8410-2 ####[facility] LABORATORYCLIA [id number] [address] OF [facility] Hemoglobin (Bld) [Mass/Vol] 11.9 g/dL Normal 11.5-15.5 [facility] Comment on above: Order Comment: Speci men Type: BLOOD SPECIMENOrdering Facility: [facility] Address: [address] [place] [address] Performed By: #### 5 8410-2 ####[facility] LABORATORYCLIA [id number] [address] STATES OF [facility] MCH (RBC) [Entitic mass] 30.7 pg Normal 26.0-34.0 [facility] Comment on above: Order Comment: Speci men Type: BLOOD SPECIMENOrdering Facility: [facility] Address: [address] [place] [address] Performed By: #### 5 8410-2 ####[facility] LABORATORYCLIA [id number] [address] [place] MCHC (RBC) [Mass/Vol] 30.7 g/dL Normal 30.5-36.0 [facility] Comment on above: Order Comment: Speci men Type: BLOOD SPECIMENOrdering Facility: [facility] Address: [address] [place] [address] Performed By: #### 5 8410-2 ####[facility] LABORATORYCLIA [id number] [address] [place] MCV (RBC) [Entitic vol] 100.3 fL High 80.0-100.0 [facility] Comment on above: Order Comment: Speci men Type: BLOOD SPECIMENOrdering Facility: [facility] Address: [address] [place] [address] Performed By: #### 5 8410-2 ####[facility] LABORATORYCLIA [id number] [address] Nucleated RBC (Bld) [#/Vol] 10*3/uL Normal <0.01 [facility] Comment on above: Order Comment: Speci men Type: BLOOD SPECIMENOrdering Facility: [facility] Address: [address] [place] [address] Performed By: #### 5 8410-2 ####[facility] LABORATORYCLIA [id number] [address] Platelet mean volume (Bld) [Entitic vol] 9.0 fL Normal 9.0-12.7 [facility] Comment on above: Order Comment: Speci men Type: BLOOD SPECIMENOrdering Facility: [facility] Address: [address] [place] [address] Performed By: #### 5 8410-2 ####[facility] LABORATORYCLIA [id number] [address] Platelets (Bld) [#/Vol] 480 10*3/uL High 150-400 [facility] Comment on above: Order Comment: Speci men Type: BLOOD SPECIMENOrdering Facility: [facility] Address: [address] [place] [address] Performed By: #### 5 8410-2 ####[facility] LABORATORYCLIA [id number] [address] [place] RBC (Bld) [#/Vol] 3.87 10*6/uL Low 3.90-5.20 [facility] Comment on above: Order Comment: Speci men Type: BLOOD SPECIMENOrdering Facility: [facility] Address: [address] [place] [address] Performed By: #### 5 8410-2 ####[facility] LABORATORYCLIA [id number] [place] [address] [place] WBC (Bld) [#/Vol] 7.61 10*3/uL Normal 3.70-11.00 [facility] Comment on above: Order Comment: Speci men Type: BLOOD SPECIMENOrdering Facility: [facility] Address: [address] [place] [address] Performed By: #### 5 8410-2 ####[facility] LABORATORYCLIA [id number] [address] [place] CONSULTon 11-12-2021 CONSULT Normal [facility] THERAPY NTon 11-12-2021 THERAPY NT Normal [facility] THERAPY NT Normal [facility] Basic metabolic 2000 panelon 11-11-2021 Anion gap [Moles/Vol] 9 mmol/L Normal 9-18 [facility] Comment on above: Order Comment: Speci men Type: BLOOD SPECIMENOrdering Facility: [facility] Address: [address] [place] [address] Performed By: #### 2 4321-2 ####[facility] LABORATORYCLIA [id number] [place] [address] [place] Calcium [Mass/Vol] 9.0 mg/dL Normal 8.5-10.2 [facility] Comment on above: Order Comment: Speci men Type: BLOOD SPECIMENOrdering Facility: [facility] Address: [address] [place] [address] Performed By: #### 2 4321-2 ####[facility] LABORATORYCLIA [id number] [place] [address] [place] Chloride [Moles/Vol] 107 mmol/L High 97-105 [facility] Comment on above: Order Comment: Speci men Type: BLOOD SPECIMENOrdering Facility: [facility] Address: [address] [address] Performed By: #### 2 4321-2 ####[facility] LABORATORYCLIA [id number] [address] STATES OF [facility] CO2 [Moles/Vol] 25 mmol/L Normal 22-30 [facility] Comment on above: Order Comment: Speci men Type: BLOOD SPECIMENOrdering Facility: [facility] Address: [address] [place] [address] Performed By: #### 2 4321-2 ####[facility] LABORATORYCLIA [id number] [address] [place] Creatinine [Mass/Vol] 0.31 mg/dL Low 0.58-0.96 [facility] Comment on above: Order Comment: Speci men Type: BLOOD SPECIMENOrdering Facility: [facility] Address: [address] [place] [address] Performed By: #### 2 4321-2 ####[place] [facility]ITALIA [id number] [address] ESTIMATED GLOMERULAR FILTRATION RATE 116 mL/min/1.73m??? Normal >=60 [facility] Comment on above: Order Comment: Speci men Type: BLOOD SPECIMENOrdering Facility: [facility] Address: [address] [place] [address] Result Comment: Ameena mated Glomerular Filtration Rate [...] actual GFR. Performed By: #### 2 4321-2 ####[facility] LABORATORYCLIA [id number] [address] OF [facility] Glucose [Mass/Vol] 116 mg/dL High 74-99 [facility] Comment on above: Order Comment: Speci men Type: BLOOD SPECIMENOrdering Facility: [facility] Address: [address] [address] Result Comment: The [place] Diabetes Association (ADA) provides guidance for cutoff [...] Standards of Medical Care in Diabetes 2016, [place] [employer]. Diabetes Care. 2016.39(Suppl 1). Performed By: #### 2 4321-2 ####[facility] LABORATORYCLIA [id number] [place] [address] [place] Potassium [Moles/Vol] 4.0 mmol/L Normal 3.7-5.1 [facility] Comment on above: Order Comment: Speci men Type: BLOOD SPECIMENOrdering Facility: [facility] Address: [address] [address] Performed By: #### 2 1-2 ####[facility] LABORATORYCLIA [id number] [place] [address] [place] Sodium [Moles/Vol] 141 mmol/L Normal 136-144 [facility] Comment on above: Order Comment: Speci men Type: BLOOD SPECIMENOrdering Facility: [facility] Address: [address] [address] Performed By: #### 2 1-2 ####[facility] LABORATORYCLIA [id number] [place] [address] [place] Urea nitrogen [Mass/Vol] 13 mg/dL Normal 7-21 [facility] Comment on above: Order Comment: Speci men Type: BLOOD SPECIMENOrdering Facility: [facility] Address: [address] [address] Performed By: #### 2 4321-2 ####[facility] LABORATORYCLIA [id number] [address] CBC panel Auto (Bld)on 11-11 Erythrocyte distribution width (RBC) [Ratio] 17.3 % High 11.5-15.0 [facility] Comment on above: Order Comment: Speci men Type: BLOOD SPECIMENOrdering Facility: [facility] Address: [address] [place] [address] Performed By: #### 5 8410-2 ####[facility] LABORATORYCLIA [id number] [address] Hematocrit (Bld) [Volume fraction] 38.1 % Normal 36.0-46.0 [facility] Comment on above: Order Comment: Speci men Type: BLOOD SPECIMENOrdering Facility: [facility] Address: [address] [place] [address] Performed By: #### 5 8410-2 ####[facility] LABORATORYCLIA [id number] [address] Hemoglobin (Bld) [Mass/Vol] 11.9 g/dL Normal 11.5-15.5 [facility] Comment on above: Order Comment: Speci men Type: BLOOD SPECIMENOrdering Facility: [facility] Address: [address] [place] [address] Performed By: #### 5 8410-2 ####[facility] LABORATORYCLIA [id number] [address] MCH (RBC) [Entitic mass] 30.6 pg Normal 26.0-34.0 [facility] Comment on above: Order Comment: Speci men Type: BLOOD SPECIMENOrdering Facility: [facility] Address: [address] [place] [address] Performed By: #### 5 8410-2 ####[facility] LABORATORYCLIA [id number] [address] [place] MCHC (RBC) [Mass/Vol] 31.2 g/dL Normal 30.5-36.0 [facility] Comment on above: Order Comment: Speci men Type: BLOOD SPECIMENOrdering Facility: [facility] Address: [address] [address] Performed By: #### 5 8410-2 ####[facility] LABORATORYCLIA [id number] [address] [place] [facility] MCV (RBC) [Entitic vol] 97.9 fL Normal 80.0-100.0 [facility] Comment on above: Order Comment: Speci men Type: BLOOD SPECIMENOrdering Facility: [facility] Address: [address] [place] [address] Performed By: #### 5 8410-2 ####[facility] LABORATORYCLIA [id number] [address] [place] Nucleated RBC (Bld) [#/Vol] 10*3/uL Normal <0.01 [facility] Comment on above: Order Comment: Speci men Type: BLOOD SPECIMENOrdering Facility: [facility] Address: [address] [address] Performed By: #### 5 8410-2 ####[facility] LABORATORYCLIA [id number] [address] Platelet mean volume (Bld) [Entitic vol] 8.9 fL Low 9.0-12.7 [facility] Comment on above: Order Comment: Speci men Type: BLOOD SPECIMENOrdering Facility: [facility] Address: [address] [place], [place] [address] Performed By: #### 5 8410-2 ####[facility] LABORATORYCLIA [id number] [address] [place] Platelets (Bld) [#/Vol] 487 10*3/uL High 150-400 [facility] Comment on above: Order Comment: Speci men Type: BLOOD SPECIMENOrdering Facility: [facility] Address: [address] [address] Performed By: #### 5 8410-2 ####[facility] LABORATORYCLIA [id number] [address] [place] RBC (Bld) [#/Vol] 3.89 10*6/uL Low 3.90-5.20 [facility] Comment on above: Order Comment: Speci men Type: BLOOD SPECIMENOrdering Facility: [facility] Address: [address] [place] [address] Performed By: #### 5 8410-2 ####[facility] LABORATORYCLIA [id number] [address] [place] WBC (Bld) [#/Vol] 8.94 10*3/uL Normal 3.70-11.00 [facility] Comment on above: Order Comment: Speci men Type: BLOOD SPECIMENOrdering Facility: [facility] Address: [address] [place] [address] Performed By: #### 5 8410-2 ####[facility] LABORATORYCLIA [id number] [address] [place] NURSING PROGon 11-11-2021 NURSING PROG Normal [facility] THERAPY NTon 11-11-2021 THERAPY NT Normal [facility] THERAPY NT Normal [facility] Basic metabolic 2000 panelon 11-10-2021 Anion gap [Moles/Vol] 12 mmol/L Normal 9-18 [facility] Comment on above: Order Comment: Speci men Type: BLOOD SPECIMENOrdering Facility: [facility] Address: [address] [place] [address] Performed By: #### 2 4321-2 ####[facility] LABORATORYCLIA [id number] [address] [place] Calcium [Mass/Vol] 8.6 mg/dL Normal 8.5-10.2 [facility] Comment on above: Order Comment: Speci men Type: BLOOD SPECIMENOrdering Facility: [facility] Address: [address] [place] [address] Performed By: #### 2 4321-2 ####[facility] LABORATORYCLIA [id number] [address] OF [facility] Chloride [Moles/Vol] 104 mmol/L Normal 97-105 [facility] Comment on above: Order Comment: Speci men Type: BLOOD SPECIMENOrdering Facility: [facility] Address: [address] [place] [address] Performed By: #### 2 4321-2 ####[facility] LABORATORYCLIA [id number] [address] OF [facility] CO2 [Moles/Vol] 23 mmol/L Normal 22-30 [facility] Comment on above: Order Comment: Speci men Type: BLOOD SPECIMENOrdering Facility: [facility] Address: [address] [place] [address] Performed By: #### 2 4321-2 ####[facility] [id number] [address] Creatinine [Mass/Vol] 0.29 mg/dL Low 0.58-0.96 [facility] Comment on above: Order Comment: Speci men Type: BLOOD SPECIMENOrdering Facility: [facility] Address: [address] [place] [address] Performed By: #### 2 4321-2 ####[facility] LABORATORYCLIA [id number] [address] ESTIMATED GLOMERULAR FILTRATION RATE 118 mL/min/1.73m??? Normal >=60 [facility] Comment on above: Order Comment: Speci men Type: BLOOD SPECIMENOrdering Facility: [facility] Address: [address] [place] [address] Result Comment: Ameena mated Glomerular Filtration Rate [...] actual GFR. Performed By: #### 2 4321-2 ####[facility] LABORATORYCLIA [id number] [place] [address] [place] Glucose [Mass/Vol] 124 mg/dL High 74-99 [facility] Comment on above: Order Comment: Lauren santana Type: BLOOD SPECIMENOrdering Facility: [facility] Address: [address] [place] [address] Result Comment: The [place] Diabetes Association (ADA) provides guidance for cutoff [...] Standards of Medical Care in Diabetes 2016, [place] [employer]. Diabetes Care. 2016.39(Suppl 1). Performed By: #### 2 4321-2 ####[facility] LABORATORYCLIA [id number] [place] [address] [place] Potassium [Moles/Vol] 3.6 mmol/L Low 3.7-5.1 [facility] Comment on above: Order Comment: Lauren santana Type: BLOOD SPECIMENOrdering Facility: [facility] Address: [address] [place] [address] Performed By: #### 2 4321-2 ####[facility] LABORATORYCLIA [id number] [place] [address] [place] Sodium [Moles/Vol] 139 mmol/L Normal 136-144 [facility] Comment on above: Order Comment: Lauren santana Type: BLOOD SPECIMENOrdering Facility: [facility] Address: [address] [place] [address] Performed By: #### 2 4321-2 ####[facility] LABORATORYCLIA [id number] [place] [address] [place] Urea nitrogen [Mass/Vol] 12 mg/dL Normal 7-21 [facility] Comment on above: Order Comment: Speci men Type: BLOOD SPECIMENOrdering Facility: [facility] Address: [address] [place] [address] Performed By: #### 2 4321-2 ####[facility] LABORATORYCLIA [id number] [address] STATES OF [facility] CBC panel Auto (Bld)on 11-10 Erythrocyte distribution width (RBC) [Ratio] 17.7 % High 11.5-15.0 [facility] Comment on above: Order Comment: Speci men Type: BLOOD SPECIMENOrdering Facility: [facility] Address: [address] [place] [address] Performed By: #### 5 8410-2 ####[facility] LABORATORYCLIA [id number] [address] STATES OF [facility] Hematocrit (Bld) [Volume fraction] 38.1 % Normal 36.0-46.0 [facility] Comment on above: Order Comment: Speci men Type: BLOOD SPECIMENOrdering Facility: [facility] Address: [address] [place] [address] Performed By: #### 5 8410-2 ####[facility] LABORATORYCLIA [id number] [address] Hemoglobin (Bld) [Mass/Vol] 11.8 g/dL Normal 11.5-15.5 [facility] Comment on above: Order Comment: Speci men Type: BLOOD SPECIMENOrdering Facility: [facility] Address: [address] [place] [address] Performed By: #### 5 8410-2 ####[facility] LABORATORYCLIA [id number] [address] MCH (RBC) [Entitic mass] 30.4 pg Normal 26.0-34.0 [facility] Comment on above: Order Comment: Speci men Type: BLOOD SPECIMENOrdering Facility: [facility] Address: [address] [place] [address] Performed By: #### 5 8410-2 ####[facility] LABORATORYCLIA [id number] [address] [place] [facility] MCHC (RBC) [Mass/Vol] 31.0 g/dL Normal 30.5-36.0 [facility] Comment on above: Order Comment: Speci men Type: BLOOD SPECIMENOrdering Facility: [facility] Address: [address] [place] [address] Performed By: #### 5 8410-2 ####[facility] LABORATORYCLIA [id number] [address] MCV (RBC) [Entitic vol] 98.2 fL Normal 80.0-100.0 [facility] Comment on above: Order Comment: Speci men Type: BLOOD SPECIMENOrdering Facility: [facility] Address: [address] [place] [address] Performed By: #### 5 8410-2 ####[facility] LABORATORYCLIA [id number] [address] Nucleated RBC (Bld) [#/Vol] 10*3/uL Normal <0.01 [facility] Comment on above: Order Comment: Speci men Type: BLOOD SPECIMENOrdering Facility: [facility] Address: [address] [place] [address] Performed By: #### 5 8410-2 ####[facility] LABORATORYCLIA [id number] [address] Platelet mean volume (Bld) [Entitic vol] 9.2 fL Normal 9.0-12.7 [facility] Comment on above: Order Comment: Speci men Type: BLOOD SPECIMENOrdering Facility: [facility] Address: [address] [place] [address] Performed By: #### 5 8410-2 ####[facility] LABORATORYCLIA [id number] [address] [place] Platelets (Bld) [#/Vol] 518 10*3/uL High 150-400 [facility] Comment on above: Order Comment: Speci men Type: BLOOD SPECIMENOrdering Facility: [facility] Address: [address] [place] [address] Performed By: #### 5 8410-2 ####[facility] LABORATORYCLIA [id number] [address] [place] RBC (Bld) [#/Vol] 3.88 10*6/uL Low 3.90-5.20 [facility] Comment on above: Order Comment: Speci men Type: BLOOD SPECIMENOrdering Facility: [facility] Address: [address] [place] [address] Performed By: #### 5 8410-2 ####[facility] LABORATORYCLIA [id number] [address] OF [facility] WBC (Bld) [#/Vol] 9.51 10*3/uL Normal 3.70-11.00 [facility] Comment on above: Order Comment: Speci men Type: BLOOD SPECIMENOrdering Facility: [facility] Address: [address] [place] [address] Performed By: #### 5 8410-2 ####[facility] LABORATORYCLIA [id number] [address] STATES OF [facility] NURSING PROGon 11-10-2021 NURSING PROG Normal [facility] NURSING PROG Normal [facility] Basic metabolic 2000 panelon 11-09-2021 Anion gap [Moles/Vol] 9 mmol/L Normal 9-18 [facility] Comment on above: Order Comment: Speci men Type: BLOOD SPECIMENOrdering Facility: [facility] Address: [address] [place] [address] Performed By: #### 2 4321-2 ####[facility] LABORATORYCLIA [id number] [address] [place] Calcium [Mass/Vol] 8.6 mg/dL Normal 8.5-10.2 [facility] Comment on above: Order Comment: Speci men Type: BLOOD SPECIMENOrdering Facility: [facility] Address: [address] [address] Performed By: #### 2 4321-2 ####[facility] LABORATORYCLIA [id number] [address] STATES OF [facility] Chloride [Moles/Vol] 106 mmol/L High 97-105 [facility] Comment on above: Order Comment: Speci men Type: BLOOD SPECIMENOrdering Facility: [facility] Address: [address] [place] [address] Performed By: #### 2 4321-2 ####[facility] LABORATORYCLIA [id number] [address] STATES OF [facility] CO2 [Moles/Vol] 25 mmol/L Normal 22-30 [facility] Comment on above: Order Comment: Speci men Type: BLOOD SPECIMENOrdering Facility: [facility] Address: [address] [place] [address] Performed By: #### 2 4321-2 ####[facility] LABORATORYCLIA [id number] [address] OF [facility] Creatinine [Mass/Vol] 0.34 mg/dL Low 0.58-0.96 [facility] Comment on above: Order Comment: Speci men Type: BLOOD SPECIMENOrdering Facility: [facility] Address: [address] [place] [address] Performed By: #### 2 4321-2 ####[facility] LABORATORYCLIA [id number] [address] ESTIMATED GLOMERULAR FILTRATION RATE 114 mL/min/1.73m??? Normal >=60 [facility] Comment on above: Order Comment: Speci men Type: BLOOD SPECIMENOrdering Facility: [facility] Address: [address] [place] [address] Result Comment: Ameena mated Glomerular Filtration Rate [...] actual GFR. Performed By: #### 2 4321-2 ####[facility] LABORATORYCLIA [id number] [place] [address] [place] Glucose [Mass/Vol] 151 mg/dL High 74-99 [facility] Comment on above: Order Comment: Lauren santana Type: BLOOD SPECIMENOrdering Facility: [facility] Address: [address] [place] [address] Result Comment: The [place] Diabetes Association (ADA) provides guidance for cutoff [...] Standards of Medical Care in Diabetes 2016, [place] [employer]. Diabetes Care. 2016.39(Suppl 1). Performed By: #### 2 4321-2 ####[facility] LABORATORYCLIA [id number] [place] [address] [place] Potassium [Moles/Vol] 3.5 mmol/L Low 3.7-5.1 [facility] Comment on above: Order Comment: Lauren santana Type: BLOOD SPECIMENOrdering Facility: [facility] Address: [address] [address] Performed By: #### 2 4321-2 ####[facility] LABORATORYCLIA [id number] [place] [address] [place] Sodium [Moles/Vol] 140 mmol/L Normal 136-144 [facility] Comment on above: Order Comment: Lauren santana Type: BLOOD SPECIMENOrdering Facility: [facility] Address: [address] [address] Performed By: #### 2 4321-2 ####[facility] LABORATORYCLIA [id number] [place] [address] [place] Urea nitrogen [Mass/Vol] 14 mg/dL Normal 7-21 [facility] Comment on above: Order Comment: Speci men Type: BLOOD SPECIMENOrdering Facility: [facility] Address: [address] [place] [address] Performed By: #### 2 4321-2 ####[facility] LABORATORYCLIA [id number] [address] [place] CASE MANAGEMon 11-09-2021 CASE MANAGEM Normal [facility] CASE MANAGEM Normal [facility] CBC panel Auto (Bld)on 11-09 Erythrocyte distribution width (RBC) [Ratio] 17.8 % High 11.5-15.0 [facility] Comment on above: Order Comment: Speci men Type: BLOOD SPECIMENOrdering Facility: [facility] Address: [address] [place] [address] Performed By: #### 5 8410-2 ####[facility] LABORATORYCLIA [id number] [address] [place] Hematocrit (Bld) [Volume fraction] 37.7 % Normal 36.0-46.0 [facility] Comment on above: Order Comment: Speci men Type: BLOOD SPECIMENOrdering Facility: [facility] Address: [address] [place] [address] Performed By: #### 5 8410-2 ####[facility] LABORATORYCLIA [id number] [address] [place] Hemoglobin (Bld) [Mass/Vol] 12.0 g/dL Normal 11.5-15.5 [facility] Comment on above: Order Comment: Speci men Type: BLOOD SPECIMENOrdering Facility: [facility] Address: [address] [place] [address] Performed By: #### 5 8410-2 ####[facility] LABORATORYCLIA [id number] [address] [place] MCH (RBC) [Entitic mass] 31.0 pg Normal 26.0-34.0 [facility] Comment on above: Order Comment: Speci men Type: BLOOD SPECIMENOrdering Facility: [facility] Address: [address] [place] [address] Performed By: #### 5 8410-2 ####[facility] LABORATORYCLIA [id number] [address] MCHC (RBC) [Mass/Vol] 31.8 g/dL Normal 30.5-36.0 [facility] Comment on above: Order Comment: Speci men Type: BLOOD SPECIMENOrdering Facility: [facility] Address: [address] [place] [address] Performed By: #### 5 8410-2 ####[facility] LABORATORYCLIA [id number] [address] MCV (RBC) [Entitic vol] 97.4 fL Normal 80.0-100.0 [facility] Comment on above: Order Comment: Speci men Type: BLOOD SPECIMENOrdering Facility: [facility] Address: [address] [place] [address] Performed By: #### 5 8410-2 ####[facility] LABORATORYCLIA [id number] [address] Nucleated RBC (Bld) [#/Vol] 10*3/uL Normal <0.01 [facility] Comment on above: Order Comment: Speci men Type: BLOOD SPECIMENOrdering Facility: [facility] Address: [address] [place] [address] Performed By: #### 5 8410-2 ####[facility] LABORATORYCLIA [id number] [address] Platelet mean volume (Bld) [Entitic vol] 8.8 fL Low 9.0-12.7 [facility] Comment on above: Order Comment: Speci men Type: BLOOD SPECIMENOrdering Facility: [facility] Address: [address] [place], [place] [address] Performed By: #### 5 8410-2 ####[facility] LABORATORYCLIA [id number] [address] Platelets (Bld) [#/Vol] 488 10*3/uL High 150-400 [facility] Comment on above: Order Comment: Speci men Type: BLOOD SPECIMENOrdering Facility: [facility] Address: [address] [place] [address] Performed By: #### 5 8410-2 ####[facility] LABORATORYCLIA [id number] [address] [place] RBC (Bld) [#/Vol] 3.87 10*6/uL Low 3.90-5.20 [facility] Comment on above: Order Comment: Speci men Type: BLOOD SPECIMENOrdering Facility: [facility] Address: [address] [place] [address] Performed By: #### 5 8410-2 ####[facility] LABORATORYCLIA [id number] [address] WBC (Bld) [#/Vol] 10.49 10*3/uL Normal 3.70-11.00 [facility] Comment on above: Order Comment: Speci men Type: BLOOD SPECIMENOrdering Facility: [facility] Address: [address] [place] [address] Performed By: #### 5 8410-2 ####[facility] LABORATORYCLIA [id number] [address] OF [facility] NURSING PROGon 11-09-2021 NURSING PROG Normal [facility] NUTRITIONon 11-09-2021 NUTRITION Normal [facility] THERAPY NTon 11-09-2021 THERAPY NT Normal [facility] THERAPY NT Normal [facility] Basic metabolic 2000 panelon 11-08-2021 Anion gap [Moles/Vol] 9 mmol/L Normal 9-18 [facility] Comment on above: Order Comment: Speci men Type: BLOOD SPECIMENOrdering Facility: [facility] Address: [address] [address] Performed By: #### 2 4321-2 ####[facility] LABORATORYCLIA [id number] [place] [address] [place] Calcium [Mass/Vol] 8.4 mg/dL Low 8.5-10.2 [facility] Comment on above: Order Comment: Speci men Type: BLOOD SPECIMENOrdering Facility: [facility] Address: [address] [address] Performed By: #### 2 4321-2 ####[facility] LABORATORYCLIA [id number] [place] [address] [place] Chloride [Moles/Vol] 109 mmol/L High 97-105 [facility] Comment on above: Order Comment: Speci men Type: BLOOD SPECIMENOrdering Facility: [facility] Address: [address] [place] [address] Performed By: #### 2 4321-2 ####[facility] LABORATORYCLIA [id number] [place] [address] [place] CO2 [Moles/Vol] 22 mmol/L Normal 22-30 [facility] Comment on above: Order Comment: Speci men Type: BLOOD SPECIMENOrdering Facility: [facility] Address: [address] [place] [address] Performed By: #### 2 4321-2 ####[facility] LABORATORYCLIA [id number] [place] [address] [place] Creatinine [Mass/Vol] 0.29 mg/dL Low 0.58-0.96 [facility] Comment on above: Order Comment: Speci men Type: BLOOD SPECIMENOrdering Facility: [facility] Address: [address] [place] [address] Performed By: #### 2 4321-2 ####[facility] LABORATORYCLIA [id number] [address] [place] ESTIMATED GLOMERULAR FILTRATION RATE 118 mL/min/1.73m??? Normal >=60 [facility] Comment on above: Order Comment: Lauren santana Type: BLOOD SPECIMENOrdering Facility: [facility] Address: [address] [id number] Result Comment: Ameena mated Glomerular Filtration Rate [...] actual GFR. Performed By: #### 2 4321-2 ####[facility] LABORATORYCLIA [id number] [place] [address] [place] Glucose [Mass/Vol] 153 mg/dL High 74-99 [facility] Comment on above: Order Comment: Lauren santana Type: BLOOD SPECIMENOrdering Facility: [facility] Address: [address] [place] [address] Result Comment: The [place] Diabetes [employer] (ADA) provides guidance for cutoff [...] Standards of Medical Care in Diabetes 2016, [place] [employer]. Diabetes Care. 2016.39(Suppl 1). Performed By: #### 2 4321-2 ####[facility] LABORATORYCLIA [id number] [place] [address] [place] Potassium [Moles/Vol] 3.2 mmol/L Low 3.7-5.1 [facility] Comment on above: Order Comment: Lauren santana Type: BLOOD SPECIMENOrdering Facility: [facility] Address: [address] Performed By: #### 2 4321-2 ####[facility] LABORATORYCLIA [id number] [address] STATES OF [facility] Sodium [Moles/Vol] 140 mmol/L Normal 136-144 [facility] Comment on above: Order Comment: Speci men Type: BLOOD SPECIMENOrdering Facility: [facility] Address: [address] [place] [address] Performed By: #### 2 4321-2 ####[facility] LABORATORYCLIA [id number] [address] STATES OF [facility] Urea nitrogen [Mass/Vol] 21 mg/dL Normal 7-21 [facility] Comment on above: Order Comment: Speci men Type: BLOOD SPECIMENOrdering Facility: [facility] Address: [address] [place] [address] Performed By: #### 2 4321-2 ####[facility] LABORATORYCLIA [id number] [address] STATES OF [facility] CASE MANAGEMon 11-08-2021 CASE MANAGEM Normal [facility] CBC panel Auto (Bld)on 11-08 Erythrocyte distribution width (RBC) [Ratio] 18.3 % High 11.5-15.0 [facility] Comment on above: Order Comment: Speci men Type: BLOOD SPECIMENOrdering Facility: [facility] Address: [address] [place] [address] Performed By: #### 5 8410-2 ####[facility] LABORATORYCLIA [id number] [address] STATES [facility] Hematocrit (Bld) [Volume fraction] 39.4 % Normal 36.0-46.0 [facility] Comment on above: Order Comment: Speci men Type: BLOOD SPECIMENOrdering Facility: [facility] Address: [address] [place] [address] Performed By: #### 5 8410-2 ####[facility] LABORATORYCLIA [id number] [address] STATES OF [facility] Hemoglobin (Bld) [Mass/Vol] 12.3 g/dL Normal 11.5-15.5 [facility] Comment on above: Order Comment: Speci men Type: BLOOD SPECIMENOrdering Facility: [facility] Address: [address] [place] [address] Performed By: #### 5 8410-2 ####[facility] LABORATORYCLIA [id number] [address] MCH (RBC) [Entitic mass] 31.5 pg Normal 26.0-34.0 [facility] Comment on above: Order Comment: Speci men Type: BLOOD SPECIMENOrdering Facility: [facility] Address: [address] [place] [address] Performed By: #### 5 8410-2 ####[facility] LABORATORYCLIA [id number] [address] MCHC (RBC) [Mass/Vol] 31.2 g/dL Normal 30.5-36.0 [facility] Comment on above: Order Comment: Speci men Type: BLOOD SPECIMENOrdering Facility: [facility] Address: [address] [place] [address] Performed By: #### 5 8410-2 ####[facility] LABORATORYCLIA [id number] [address] MCV (RBC) [Entitic vol] 101.0 fL High 80.0-100.0 [facility] Comment on above: Order Comment: Speci men Type: BLOOD SPECIMENOrdering Facility: [facility] Address: [address] [place] [address] Performed By: #### 5 8410-2 ####[facility] LABORATORYCLIA [id number] [address] Nucleated RBC (Bld) [#/Vol] 10*3/uL Normal <0.01 [facility] Comment on above: Order Comment: Speci men Type: BLOOD SPECIMENOrdering Facility: [facility] Address: [address] [place] [address] Performed By: #### 5 8410-2 ####[facility] LABORATORYCLIA [id number] [place] [address] [place] Platelet mean volume (Bld) [Entitic vol] 9.3 fL Normal 9.0-12.7 [facility] Comment on above: Order Comment: Speci men Type: BLOOD SPECIMENOrdering Facility: [facility] Address: [address] [place] [address] Performed By: #### 5 8410-2 ####[facility] LABORATORYCLIA [id number] [place] [address] [place] Platelets (Bld) [#/Vol] 489 10*3/uL High 150-400 [facility] Comment on above: Order Comment: Speci men Type: BLOOD SPECIMENOrdering Facility: [facility] Address: [address] [place] [address] Performed By: #### 5 8410-2 ####[facility] LABORATORYCLIA [id number] [place] [address] [place] RBC (Bld) [#/Vol] 3.90 10*6/uL Normal 3.90-5.20 [facility] Comment on above: Order Comment: Speci men Type: BLOOD SPECIMENOrdering Facility: [facility] Address: [address] [place] [address] Performed By: #### 5 8410-2 ####[facility] LABORATORYCLIA [id number] [place] [address] [place] WBC (Bld) [#/Vol] 12.37 10*3/uL High 3.70-11.00 [facility] Comment on above: Order Comment: Speci men Type: BLOOD SPECIMENOrdering Facility: [facility] Address: [address] [place] [address] Performed By: #### 5 8410-2 ####[facility] LABORATORYCLIA [id number] [address] [place] CONSULT PROGon 11-08-2021 CONSULT PROG Normal [facility] THERAPY NTon 11-08-2021 THERAPY NT Normal [facility] ALLIED HEALTHon 11-07-2021 ALLIED HEALTH Normal [facility] Basic metabolic 2000 panelon 11-07-2021 Anion gap [Moles/Vol] 9 mmol/L Normal 9-18 [facility] Comment on above: Order Comment: Speci men Type: BLOOD SPECIMENOrdering Facility: [facility] Address: [address] [place] [address] Performed By: #### 2 4321-2 ####[facility] LABORATORYCLIA [id number] [place] [address] [place] Calcium [Mass/Vol] 8.6 mg/dL Normal 8.5-10.2 [facility] Comment on above: Order Comment: Speci men Type: BLOOD SPECIMENOrdering Facility: [facility] Address: [address] [place] [address] Performed By: #### 2 4321-2 ####[facility] LABORATORYCLIA [id number] [place] [address] [place] Chloride [Moles/Vol] 108 mmol/L High 97-105 [facility] Comment on above: Order Comment: Speci men Type: BLOOD SPECIMENOrdering Facility: [facility] Address: [address] [place] [address] Performed By: #### 2 4321-2 ####[facility] LABORATORYCLIA [id number] [place] [address] [place] CO2 [Moles/Vol] 23 mmol/L Normal 22-30 [facility] Comment on above: Order Comment: Speci men Type: BLOOD SPECIMENOrdering Facility: [facility] Address: [address] [place] [address] Performed By: #### 2 4321-2 ####[facility] LABORATORYCLIA [id number] [place] [address] [place] Creatinine [Mass/Vol] 0.30 mg/dL Low 0.58-0.96 [facility] Comment on above: Order Comment: Speci men Type: BLOOD SPECIMENOrdering Facility: [facility] Address: [address] [place] [address] Performed By: #### 2 4321-2 ####[place] [facility] H[facility]PITALIA [id number] [address] ESTIMATED GLOMERULAR FILTRATION RATE 117 mL/min/1.73m??? Normal >=60 [facility] Comment on above: Order Comment: Lauren santana Type: BLOOD SPECIMENOrdering Facility: [facility] Address: [address] [place] [address] Result Comment: Ameena mated Glomerular Filtration Rate [...] actual GFR. Performed By: #### 2 4321-2 ####[place] [facility] H[facility]PITALIA [id number] [place] [address] [place] Glucose [Mass/Vol] 171 mg/dL High 74-99 [facility] Comment on above: Order Comment: Lauren santana Type: BLOOD SPECIMENOrdering Facility: [facility] Address: [address] [place] [address] Result Comment: The [place] Diabetes Association (ADA) provides guidance for cutoff [...] Standards of Medical Care in Diabetes 2016, [employer]. Diabetes Care. 2016.39(Suppl 1). Performed By: #### 2 4321-2 ####[facility] LABORATORYCLIA [id number] [place] [address] [place] Potassium [Moles/Vol] 3.5 mmol/L Low 3.7-5.1 [facility] Comment on above: Order Comment: Speci men Type: BLOOD SPECIMENOrdering Facility: [facility] Address: [address] [place] [address] Performed By: #### 2 4321-2 ####[facility] LABORATORYCLIA [id number] [address] [place] Sodium [Moles/Vol] 140 mmol/L Normal 136-144 [facility] Comment on above: Order Comment: Speci men Type: BLOOD SPECIMENOrdering Facility: [facility] Address: [address] [place] [address] Performed By: #### 2 4321-2 ####[facility] LABORATORYCLIA [id number] [address] [place] Urea nitrogen [Mass/Vol] 27 mg/dL High 7-21 [facility] Comment on above: Order Comment: Speci men Type: BLOOD SPECIMENOrdering Facility: [facility] Address: [address] [place] [address] Performed By: #### 2 4321-2 ####[facility] LABORATORYCLIA [id number] [address] [place] CASE MANAGEMon 11-07-2021 CASE MANAGEM Normal [facility] CASE MANAGEM Normal [facility] CBC panel Auto (Bld)on 11-07 Erythrocyte distribution width (RBC) [Ratio] 18.5 % High 11.5-15.0 [facility] Comment on above: Order Comment: Speci men Type: BLOOD SPECIMENOrdering Facility: [facility] Address: [address] [place] [address] Performed By: #### 5 8410-2 ####[facility] LABORATORYCLIA [id number] [address] [place] Hematocrit (Bld) [Volume fraction] 36.8 % Normal 36.0-46.0 [facility] Comment on above: Order Comment: Speci men Type: BLOOD SPECIMENOrdering Facility: [facility] Address: [address] [place] [address] Performed By: #### 5 8410-2 ####[facility] LABORATORYCLIA [id number] [address] STATES OF [facility] Hemoglobin (Bld) [Mass/Vol] 11.7 g/dL Normal 11.5-15.5 [facility] Comment on above: Order Comment: Speci men Type: BLOOD SPECIMENOrdering Facility: [facility] Address: [address] [place] [address] Performed By: #### 5 8410-2 ####[facility] LABORATORYCLIA [id number] [address] STATES OF [facility] MCH (RBC) [Entitic mass] 30.9 pg Normal 26.0-34.0 [facility] Comment on above: Order Comment: Speci men Type: BLOOD SPECIMENOrdering Facility: [facility] Address: [address] [place] [address] Performed By: #### 5 8410-2 ####[facility] LABORATORYCLIA [id number] [address] MCHC (RBC) [Mass/Vol] 31.8 g/dL Normal 30.5-36.0 [facility] Comment on above: Order Comment: Speci men Type: BLOOD SPECIMENOrdering Facility: [facility] Address: [address] [place] [address] Performed By: #### 5 8410-2 ####[facility] LABORATORYCLIA [id number] [address] [place] MCV (RBC) [Entitic vol] 97.1 fL Normal 80.0-100.0 [facility] Comment on above: Order Comment: Speci men Type: BLOOD SPECIMENOrdering Facility: [facility] Address: [address] [place] [address] Performed By: #### 5 8410-2 ####[facility] LABORATORYCLIA [id number] [address] [place] Nucleated RBC (Bld) [#/Vol] 0.02 10*3/uL High <0.01 [facility] Comment on above: Order Comment: Speci men Type: BLOOD SPECIMENOrdering Facility: [facility] Address: [address] [place] [address] Performed By: #### 5 8410-2 ####[facility] LABORATORYCLIA [id number] [address] [place] Platelet mean volume (Bld) [Entitic vol] 9.2 fL Normal 9.0-12.7 [facility] Comment on above: Order Comment: Speci men Type: BLOOD SPECIMENOrdering Facility: [facility] Address: [address] [place] [address] Performed By: #### 5 8410-2 ####[facility] LABORATORYCLIA [id number] [address] [place] Platelets (Bld) [#/Vol] 520 10*3/uL High 150-400 [facility] Comment on above: Order Comment: Speci men Type: BLOOD SPECIMENOrdering Facility: [facility] Address: [address] [place] [address] Performed By: #### 5 8410-2 ####[facility] LABORATORYCLIA [id number] [place] [address] [place] RBC (Bld) [#/Vol] 3.79 10*6/uL Low 3.90-5.20 [facility] Comment on above: Order Comment: Speci men Type: BLOOD SPECIMENOrdering Facility: [facility] Address: [address] [place] [address] Performed By: #### 5 8410-2 ####[facility] LABORATORYCLIA [id number] [address] [place] WBC (Bld) [#/Vol] 13.66 10*3/uL High 3.70-11.00 [facility] Comment on above: Order Comment: Speci men Type: BLOOD SPECIMENOrdering Facility: [facility] Address: [address] [place], [place] [id number] Performed By: #### 5 8410-2 ####[facility] LABORATORYCLIA [id number] [place] [address] [place] NURSING PROGon 11-07-2021 NURSING PROG Normal [facility] NURSING PROG Normal [facility] NURSING PROG Normal [facility] THERAPY NTon 11-07-2021 THERAPY NT Normal [facility] THERAPY NT Normal [facility] THERAPY NT Normal [facility] THERAPY NT Normal [facility] XR MOD BARIUM SWALLOW W SPEE Rowan 11-07-2021 XR MOD BARIUM SWALLOW W SPEECH Normal [facility] ALLIED HEALTHon 11-06-2021 ALLIED HEALTH Normal [facility] Basic metabolic 2000 panelon 11-06-2021 Anion gap [Moles/Vol] 11 mmol/L Normal 9-18 [facility] Comment on above: Order Comment: Speci men Type: BLOOD SPECIMENOrdering Facility: [facility] Address: [address] [place], [place] [address] Performed By: #### 2 4321-2, 2776-08, ####[facility] LABORATORYCLIA [id number] [place] [address] [place] Calcium [Mass/Vol] 8.9 mg/dL Normal 8.5-10.2 [facility] Comment on above: Order Comment: Speci men Type: BLOOD SPECIMENOrdering Facility: [facility] Address: [address] [id number] Performed By: #### 2 4321-2, 2777, ####[facility] LABORATORYCLIA [id number] [place] [address] [place] Chloride [Moles/Vol] 108 mmol/L High 97-105 [facility] Comment on above: Order Comment: Speci men Type: BLOOD SPECIMENOrdering Facility: [facility] Address: [address] [phone] Performed By: #### 2 4321-2, 2776-08, ####[facility] [id number] [address] STATES [facility] CO2 [Moles/Vol] 27 mmol/L Normal 22-30 [facility] Comment on above: Order Comment: Speci men Type: BLOOD SPECIMENOrdering Facility: [facility] Address: [address] [place] [address] Performed By: #### 2 4321-2, 2776-08, ####[facility] [id number] [address] Creatinine [Mass/Vol] 0.33 mg/dL Low 0.58-0.96 [facility] Comment on above: Order Comment: Speci men Type: BLOOD SPECIMENOrdering Facility: [facility] Address: [address] [place] [address] Performed By: #### 2 4321-2, 2776-08, ####[place] [facility]ITALIA [id number] [address] ESTIMATED GLOMERULAR FILTRATION RATE 114 mL/min/1.73m??? Normal >=60 [facility] Comment on above: Order Comment: Speci men Type: BLOOD SPECIMENOrdering Facility: [facility] Address: [address] [place] [address] Result Comment: Ameena mated Glomerular Filtration Rate [...] actual GFR. Performed By: #### 2 4321-2, 2777-, ####[facility] LABORATORYCLIA [id number] [place] [id number] [place] Glucose [Mass/Vol] 203 mg/dL High 74-99 [facility] Comment on above: Order Comment: Lauren santana Type: BLOOD SPECIMENOrdering Facility: [facility] Address: [address] [place] [address] Result Comment: The [place] Diabetes Association (ADA) provides guidance for cutoff [...] Standards of Medical Care in Diabetes 2016, [place] [employer]. Diabetes Care. 2016.39(Suppl 1). Performed By: #### 2 4321-2, 2776-08, ####[facility] LABORATORYCLIA [id number] [place] [address] [place] Potassium [Moles/Vol] 3.2 mmol/L Low 3.7-5.1 [facility] Comment on above: Order Comment: Lauren santana Type: BLOOD SPECIMENOrdering Facility: [facility] Address: [address] [place], [place] [phone] Performed By: #### 2 4321-2, 2776-08, ####[facility] LABORATORYCLIA [id number] [place] [address] [place] Sodium [Moles/Vol] 146 mmol/L High 136-144 [facility] Comment on above: Order Comment: Lauren santana Type: BLOOD SPECIMENOrdering Facility: [facility] Address: [address] [place], [place] [phone] Performed By: #### 2 4321-2, 27702-15, ####[facility] LABORATORYCLIA [id number] [place] [address] [place] Urea nitrogen [Mass/Vol] 26 mg/dL High 7-21 [facility] Comment on above: Order Comment: Speci men Type: BLOOD SPECIMENOrdering Facility: [facility] Address: [address] [place] [address] Performed By: #### 2 4321-2, 2777-1, 41467-2 ####[facility] LABORATORYCLIA [id number] [address] [place] CALCIUM IONIZED Bon 11-07-19 Calcium.ionized (BldV) [Mass/Vol] 1.14 mmol/L Normal 1.08-1.30 [facility] Comment on above: Order Comment: Speci men Type: BLOOD SPECIMENOrdering Facility: [facility] Address: [address] [place] [address] Performed By: #### I CA ####[facility] LABORATORYCLIA [id number] [address] STATES OF [facility] Calcium.ionized adjusted to pH 7.4 (Bld) [Moles/Vol] 1.14 mmol/L Normal 1.08-1.30 [facility] Comment on above: Order Comment: Speci men Type: BLOOD SPECIMENOrdering Facility: [facility] Address: [address] [place] [address] Performed By: #### I CA ####[facility] LABORATORYCLIA [id number] [address] [place] CASE MANAGEMon 11-06-2021 CASE MANAGEM Normal [facility] CBC panel Auto (Bld)on 11-06 Erythrocyte distribution width (RBC) [Ratio] 18.5 % High 11.5-15.0 [facility] Comment on above: Order Comment: Speci men Type: BLOOD SPECIMENOrdering Facility: [facility] Address: [address] [place] [address] Performed By: #### 5 8410-2 ####[facility] LABORATORYCLIA [id number] [address] [place] Hematocrit (Bld) [Volume fraction] 39.3 % Normal 36.0-46.0 [facility] Comment on above: Order Comment: Speci men Type: BLOOD SPECIMENOrdering Facility: [facility] Address: [address] [place] [address] Performed By: #### 5 8410-2 ####[facility] LABORATORYCLIA [id number] [address] OF [facility] Hemoglobin (Bld) [Mass/Vol] 11.9 g/dL Normal 11.5-15.5 [facility] Comment on above: Order Comment: Speci men Type: BLOOD SPECIMENOrdering Facility: [facility] Address: [address] [place] [address] Performed By: #### 5 8410-2 ####[facility] LABORATORYCLIA [id number] [address] OF [facility] MCH (RBC) [Entitic mass] 31.0 pg Normal 26.0-34.0 [facility] Comment on above: Order Comment: Speci men Type: BLOOD SPECIMENOrdering Facility: [facility] Address: [address] [place] [address] Performed By: #### 5 8410-2 ####[facility] LABORATORYCLIA [id number] [address] MCHC (RBC) [Mass/Vol] 30.3 g/dL Low 30.5-36.0 [facility] Comment on above: Order Comment: Speci men Type: BLOOD SPECIMENOrdering Facility: [facility] Address: [address] [place] [address] Performed By: #### 5 8410-2 ####[facility] LABORATORYCLIA [id number] [address] [place] MCV (RBC) [Entitic vol] 102.3 fL High 80.0-100.0 [facility] Comment on above: Order Comment: Speci men Type: BLOOD SPECIMENOrdering Facility: [facility] Address: [address] [place] [address] Performed By: #### 5 8410-2 ####[facility] LABORATORYCLIA [id number] [place] [address] [place] Nucleated RBC (Bld) [#/Vol] 0.04 10*3/uL High <0.01 [facility] Comment on above: Order Comment: Speci men Type: BLOOD SPECIMENOrdering Facility: [facility] Address: [address] [place] [address] Performed By: #### 5 8410-2 ####[facility] LABORATORYCLIA [id number] [address] [place] Platelet mean volume (Bld) [Entitic vol] 9.5 fL Normal 9.0-12.7 [facility] Comment on above: Order Comment: Speci men Type: BLOOD SPECIMENOrdering Facility: [facility] Address: [address] [place] [address] Performed By: #### 5 8410-2 ####[facility] LABORATORYCLIA [id number] [address] [place] Platelets (Bld) [#/Vol] 565 10*3/uL High 150-400 [facility] Comment on above: Order Comment: Speci men Type: BLOOD SPECIMENOrdering Facility: [facility] Address: [address] [place] [address] Performed By: #### 5 8410-2 ####[facility] LABORATORYCLIA [id number] [address] [place] RBC (Bld) [#/Vol] 3.84 10*6/uL Low 3.90-5.20 [facility] Comment on above: Order Comment: Speci men Type: BLOOD SPECIMENOrdering Facility: [facility] Address: [address] [place] [address] Performed By: #### 5 8410-2 ####[facility] LABORATORYCLIA [id number] [place] [address] [place] WBC (Bld) [#/Vol] 16.56 10*3/uL High 3.70-11.00 [facility] Comment on above: Order Comment: Speci men Type: BLOOD SPECIMENOrdering Facility: [facility] Address: [address] [place] [address] Performed By: #### 5 8410-2 ####[facility] LABORATORYCLIA [id number] [address] [place] Magnesium SerPl-mCncon 11-06 Magnesium [Mass/Vol] 2.0 mg/dL Normal 1.7-2.3 [facility] Comment on above: Order Comment: Speci men Type: BLOOD SPECIMENOrdering Facility: [facility] Address: [address] [place] [address] Performed By: #### 2 4321-2, 277-, ####[facility] LABORATORYCLIA [id number] [address] [place] NURSING PROGon 11-06-2021 NURSING PROG Normal [facility] NUTRITIONon 11-06-2021 NUTRITION Normal [facility] Phosphate SerPl-mCncon 11-06 Phosphate [Mass/Vol] 2.7 mg/dL Normal 2.7-4.8 [facility] Comment on above: Order Comment: Speci men Type: BLOOD SPECIMENOrdering Facility: [facility] Address: [address] [place] [address] Performed By: #### 2 4321-2, 27702-15, ####[facility] LABORATORYCLIA [id number] [address] [place] THERAPY NTon 11-06-2021 THERAPY NT Normal [facility] XR CHEST 1V FRONTALon 2021 XR CHEST 1V FRONTAL Normal [facility] ALLIED HEALTHon 11-05-2021 ALLIED HEALTH Normal [facility] Basic metabolic 2000 panelon 11-05-2021 Anion gap [Moles/Vol] 12 mmol/L Normal 9-18 [facility] Comment on above: Order Comment: Speci men Type: BLOOD SPECIMENOrdering Facility: [facility] Address: [address] [place] [address] Performed By: #### 2 4321-2, , 2776-08 ####[facility] LABORATORYCLIA [id number] [place] [address] [place] Calcium [Mass/Vol] 9.0 mg/dL Normal 8.5-10.2 [facility] Comment on above: Order Comment: Speci men Type: BLOOD SPECIMENOrdering Facility: [facility] Address: [address] [place] [address] Performed By: #### 2 4321-2, , 2776-08 ####[facility] LABORATORYCLIA [id number] [place] [address] [place] Chloride [Moles/Vol] 112 mmol/L High 97-105 [facility] Comment on above: Order Comment: Speci men Type: BLOOD SPECIMENOrdering Facility: [facility] Address: [address] [place] [address] Performed By: #### 2 1-2, , 2776-08 ####[facility] LABORATORYCLIA [id number] [place] [address] [place] CO2 [Moles/Vol] 23 mmol/L Normal 22-30 [facility] Comment on above: Order Comment: Speci men Type: BLOOD SPECIMENOrdering Facility: [facility] Address: [address] [place], [place] [address] Performed By: #### 2 4321-2, , 2776-08 ####[facility] LABORATORYCLIA [id number] [place] [address] [place] Creatinine [Mass/Vol] 0.33 mg/dL Low 0.58-0.96 [facility] Comment on above: Order Comment: Speci men Type: BLOOD SPECIMENOrdering Facility: [facility] Address: [address] [place] [address] Performed By: #### 2 4321-2, , 2776-08 ####[facility] LABORATORYCLIA [id number] [place] [address] [place] ESTIMATED GLOMERULAR FILTRATION RATE 114 mL/min/1.73m??? Normal >=60 [facility] Comment on above: Order Comment: Lauren esther Type: BLOOD SPECIMENOrdering Facility: [facility] Address: [address] [place] [address] Result Comment: Ameena mated Glomerular Filtration Rate [...] actual GFR. Performed By: #### 2 4321-2, 24463-8, 2776-08 ####[facility] LABORATORYCLIA [id number] [place] [id number] [place] Glucose [Mass/Vol] 298 mg/dL High 74-99 [facility] Comment on above: Order Comment: Lauren santana Type: BLOOD SPECIMENOrdering Facility: [facility] Address: [address] [place] [address] Result Comment: The [place] Diabetes Association (ADA) provides guidance for cutoff [...] Standards of Medical Care in Diabetes 2016, [employer]. Diabetes Care. 2016.39(Suppl 1). Performed By: #### 2 4321-2, 68344-1, 2776- ####[facility] LABORATORYCLIA [id number] [place] [address] [place] Potassium [Moles/Vol] 4.0 mmol/L Normal 3.7-5.1 [facility] Comment on above: Order Comment: Speci men Type: BLOOD SPECIMENOrdering Facility: [facility] Address: [address] [place] [address] Performed By: #### 2 4321-2, , 2776-08 ####[facility] LABORATORYCLIA [id number] [place] [address] [place] Sodium [Moles/Vol] 147 mmol/L High 136-144 [facility] Comment on above: Order Comment: Speci men Type: BLOOD SPECIMENOrdering Facility: [facility] Address: [address] [place] [address] Performed By: #### 2 4321-2, , 2776-08 ####[facility] LABORATORYCLIA [id number] [place] [address] [place] Urea nitrogen [Mass/Vol] 32 mg/dL High 7-21 [facility] Comment on above: Order Comment: Speci men Type: BLOOD SPECIMENOrdering Facility: [facility] Address: [address] [place] [address] Performed By: #### 2 4321-2, , 2776-08 ####[facility] LABORATORYCLIA [id number] [place] [address] [place] CALCIUM IONIZED Bon 11-06-19 22 Calcium.ionized (BldV) [Mass/Vol] 1.23 mmol/L Normal 1.08-1.30 [facility] Comment on above: Order Comment: Speci men Type: BLOOD SPECIMENOrdering Facility: [facility] Address: [address] [place] [address] Performed By: #### I CA ####[facility] LABORATORYCLIA [id number] [address] [place] Calcium.ionized adjusted to pH 7.4 (Bld) [Moles/Vol] 1.27 mmol/L Normal 1.08-1.30 [facility] Comment on above: Order Comment: Speci men Type: BLOOD SPECIMENOrdering Facility: [facility] Address: [address] [place] [address] Performed By: #### I CA ####[facility] LABORATORYCLIA [id number] [address] [place] CASE MANAGEMon 11-05-2021 CASE MANAGEM Normal [facility] CASE MANAGEM Normal [facility] CBC panel Auto (Bld)on 11-05 Erythrocyte distribution width (RBC) [Ratio] 18.6 % High 11.5-15.0 [facility] Comment on above: Order Comment: Speci men Type: BLOOD SPECIMENOrdering Facility: [facility] Address: [address] [place] [address] Performed By: #### 5 8410-2 ####[facility] LABORATORYCLIA [id number] [address] [place] [facility] Hematocrit (Bld) [Volume fraction] 31.5 % Low 36.0-46.0 [facility] Comment on above: Order Comment: Speci men Type: BLOOD SPECIMENOrdering Facility: [facility] Address: [address] [place] [address] Performed By: #### 5 8410-2 ####[facility] LABORATORYCLIA [id number] [address] [place] Hemoglobin (Bld) [Mass/Vol] 9.7 g/dL Low 11.5-15.5 [facility] Comment on above: Order Comment: Speci men Type: BLOOD SPECIMENOrdering Facility: [facility] Address: [address] [place] [address] Performed By: #### 5 8410-2 ####[facility] LABORATORYCLIA [id number] [address] [place] [facility] MCH (RBC) [Entitic mass] 31.2 pg Normal 26.0-34.0 [facility] Comment on above: Order Comment: Speci men Type: BLOOD SPECIMENOrdering Facility: [facility] Address: [address] [place] [address] Performed By: #### 5 8410-2 ####[facility] LABORATORYCLIA [id number] [address] [place] [facility] MCHC (RBC) [Mass/Vol] 30.8 g/dL Normal 30.5-36.0 [facility] Comment on above: Order Comment: Speci men Type: BLOOD SPECIMENOrdering Facility: [facility] Address: [address] [place] [address] Performed By: #### 5 8410-2 ####[facility] LABORATORYCLIA [id number] [address] MCV (RBC) [Entitic vol] 101.3 fL High 80.0-100.0 [facility] Comment on above: Order Comment: Speci men Type: BLOOD SPECIMENOrdering Facility: [facility] Address: [address] [place] [address] Performed By: #### 5 8410-2 ####[facility] LABORATORYCLIA [id number] [address] Nucleated RBC (Bld) [#/Vol] 10*3/uL Normal <0.01 [facility] Comment on above: Order Comment: Speci men Type: BLOOD SPECIMENOrdering Facility: [facility] Address: [address] [place] [address] Performed By: #### 5 8410-2 ####[facility] LABORATORYCLIA [id number] [address] [place] Platelet mean volume (Bld) [Entitic vol] 9.8 fL Normal 9.0-12.7 [facility] Comment on above: Order Comment: Speci men Type: BLOOD SPECIMENOrdering Facility: [facility] Address: [address] [place] [address] Performed By: #### 5 8410-2 ####[facility] LABORATORYCLIA [id number] [address] [place] Platelets (Bld) [#/Vol] 425 10*3/uL High 150-400 [facility] Comment on above: Order Comment: Speci men Type: BLOOD SPECIMENOrdering Facility: [facility] Address: [address] [place] [address] Performed By: #### 5 8410-2 ####[facility] LABORATORYCLIA [id number] [address] STATES OF [facility] RBC (Bld) [#/Vol] 3.11 10*6/uL Low 3.90-5.20 [facility] Comment on above: Order Comment: Speci men Type: BLOOD SPECIMENOrdering Facility: [facility] Address: [address] [place] [address] Performed By: #### 5 8410-2 ####[facility] LABORATORYCLIA [id number] [address] WBC (Bld) [#/Vol] 10.04 10*3/uL Normal 3.70-11.00 [facility] Comment on above: Order Comment: Speci men Type: BLOOD SPECIMENOrdering Facility: [facility] Address: [address] [place] [address] Performed By: #### 5 8410-2 ####[facility] LABORATORYCLIA [id number] [address] CTA HEAD WO/W IVCONon 2021 CTA HEAD WO/W IVCON Normal [facility] Magnesium SerPl-mCncon 11-05 Magnesium [Mass/Vol] 2.3 mg/dL Normal 1.7-2.3 [facility] Comment on above: Order Comment: Speci men Type: BLOOD SPECIMENOrdering Facility: [facility] Address: [address] [place] [address] Performed By: #### 2 4321-2, 44256-7, 2777-1 ####[facility] LABORATORYCLIA [id number] [address] OF [facility] NURSING PROGon 11-05-2021 NURSING PROG Normal [facility] Phosphate SerPl-mCncon 11-05 Phosphate [Mass/Vol] 3.1 mg/dL Normal 2.7-4.8 [facility] Comment on above: Order Comment: Speci men Type: BLOOD SPECIMENOrdering Facility: [facility] Address: [address] [place] [address] Performed By: #### 2 4321-2, , 2776-08 ####[facility] LABORATORYCLIA [id number] [place] [address] [place] THERAPY NTon 11-05-2021 THERAPY NT Normal [facility] ALLIED HEALTHon 11-04-2021 ALLIED HEALTH Normal [facility] Basic metabolic 2000 panelon 11-04-2021 Anion gap [Moles/Vol] 8 mmol/L Low 9-18 [facility] Comment on above: Order Comment: Speci men Type: BLOOD SPECIMENOrdering Facility: [facility] Address: [address] [place] [address] Performed By: #### 2 4321-2, , 2776-08 ####[facility] LABORATORYCLIA [id number] [place] [address] [place] Calcium [Mass/Vol] 8.5 mg/dL Normal 8.5-10.2 [facility] Comment on above: Order Comment: Speci men Type: BLOOD SPECIMENOrdering Facility: [facility] Address: [address] [place] [address] Performed By: #### 2 4321-2, , 2776-08 ####[facility] LABORATORYCLIA [id number] [place] [address] [place] Chloride [Moles/Vol] 114 mmol/L High 97-105 [facility] Comment on above: Order Comment: Speci men Type: BLOOD SPECIMENOrdering Facility: [facility] Address: [address] [place] [address] Performed By: #### 2 4321-2, , 2776-08 ####[facility] LABORATORYCLIA [id number] [address] [place] CO2 [Moles/Vol] 25 mmol/L Normal 22-30 [facility] Comment on above: Order Comment: Speci men Type: BLOOD SPECIMENOrdering Facility: [facility] Address: [address] [place] [address] Performed By: #### 2 4321-2, , 2776-08 ####[facility] LABORATORYCLIA [id number] [address] STATES OF [facility] Creatinine [Mass/Vol] 0.32 mg/dL Low 0.58-0.96 [facility] Comment on above: Order Comment: Speci men Type: BLOOD SPECIMENOrdering Facility: [facility] Address: [address] [place] [address] Performed By: #### 2 4321-2, , 2776-08 ####[facility] LABORATORYCLIA [id number] [address] ESTIMATED GLOMERULAR FILTRATION RATE 115 mL/min/1.73m??? Normal >=60 [facility] Comment on above: Order Comment: Speci men Type: BLOOD SPECIMENOrdering Facility: [facility] Address: [address] [place] [address] Result Comment: Ameena mated Glomerular Filtration Rate [...] Performed By: #### 2 4321-2, , 2776-08 ####[facility] LABORATORYCLIA [id number] [address] [place] Glucose [Mass/Vol] 220 mg/dL High 74-99 [facility] Comment on above: Order Comment: Speci men Type: BLOOD SPECIMENOrdering Facility: [facility] Address: [address] [place] [address] Result Comment: The [place] Diabetes Association (ADA) provides guidance for cutoff [...] Standards of Medical Care in Diabetes 2016, [place] [employer]. Diabetes Care. 2016.39(Suppl 1). Performed By: #### 2 4321-2, , 2776-08 ####[facility] LABORATORYCLIA [id number] [place] [address] [place] Potassium [Moles/Vol] 3.5 mmol/L Low 3.7-5.1 [facility] Comment on above: Order Comment: Speci men Type: BLOOD SPECIMENOrdering Facility: [facility] Address: [address] [place], [place] [address] Performed By: #### 2 4321-2, , 2776-08 ####[facility] LABORATORYCLIA [id number] [place] [address] [place] Sodium [Moles/Vol] 147 mmol/L High 136-144 [facility] Comment on above: Order Comment: Speci men Type: BLOOD SPECIMENOrdering Facility: [facility] Address: [address] Performed By: #### 2 4321-2, , 2776-08 ####[facility] LABORATORYCLIA [id number] [place] [address] [place] Urea nitrogen [Mass/Vol] 30 mg/dL High 7-21 [facility] Comment on above: Order Comment: Speci men Type: BLOOD SPECIMENOrdering Facility: [facility] Address: [address] Performed By: #### 2 4321-2, 66258-3, 2777-1 ####[facility] LABORATORYCLIA [id number] [address] CALCIUM IONIZED Bon 11-05-19 Calcium.ionized (BldV) [Mass/Vol] 1.17 mmol/L Normal 1.08-1.30 [facility] Comment on above: Order Comment: Speci men Type: BLOOD SPECIMENOrdering Facility: [facility] Address: [address] [place] [address] Performed By: #### I CA ####[facility] LABORATORYCLIA [id number] [address] Calcium.ionized adjusted to pH 7.4 (Bld) [Moles/Vol] 1.21 mmol/L Normal 1.08-1.30 [facility] Comment on above: Order Comment: Speci men Type: BLOOD SPECIMENOrdering Facility: [facility] Address: [address] [place] [address] Performed By: #### I CA ####[facility] LABORATORYCLIA [id number] [address] CBC panel Auto (Bld)on 11-04 Erythrocyte distribution width (RBC) [Ratio] 18.7 % High 11.5-15.0 [facility] Comment on above: Order Comment: Speci men Type: BLOOD SPECIMENOrdering Facility: [facility] Address: [address] [place] [address] Performed By: #### 5 8410-2 ####[facility] LABORATORYCLIA [id number] [address] Hematocrit (Bld) [Volume fraction] 30.0 % Low 36.0-46.0 [facility] Comment on above: Order Comment: Speci men Type: BLOOD SPECIMENOrdering Facility: [facility] Address: [address] [place] [address] Performed By: #### 5 8410-2 ####[facility] LABORATORYCLIA [id number] [address] OF [facility] Hemoglobin (Bld) [Mass/Vol] 9.4 g/dL Low 11.5-15.5 [facility] Comment on above: Order Comment: Speci men Type: BLOOD SPECIMENOrdering Facility: [facility] Address: [address] [place] [address] Performed By: #### 5 8410-2 ####[facility] LABORATORYCLIA [id number] [address] MCH (RBC) [Entitic mass] 31.1 pg Normal 26.0-34.0 [facility] Comment on above: Order Comment: Speci men Type: BLOOD SPECIMENOrdering Facility: [facility] Address: [address] [place] [address] Performed By: #### 5 8410-2 ####[facility] LABORATORYCLIA [id number] [address] MCHC (RBC) [Mass/Vol] 31.3 g/dL Normal 30.5-36.0 [facility] Comment on above: Order Comment: Speci men Type: BLOOD SPECIMENOrdering Facility: [facility] Address: [address] [place] [address] Performed By: #### 5 8410-2 ####[facility] LABORATORYCLIA [id number] [address] MCV (RBC) [Entitic vol] 99.3 fL Normal 80.0-100.0 [facility] Comment on above: Order Comment: Speci men Type: BLOOD SPECIMENOrdering Facility: [facility] Address: [address] [place] [address] Performed By: #### 5 8410-2 ####[facility] LABORATORYCLIA [id number] [address] Nucleated RBC (Bld) [#/Vol] 0.04 10*3/uL High <0.01 [facility] Comment on above: Order Comment: Speci men Type: BLOOD SPECIMENOrdering Facility: [facility] Address: [address] [place], [place] [address] Performed By: #### 5 8410-2 ####[facility] LABORATORYCLIA [id number] [address] Platelet mean volume (Bld) [Entitic vol] 9.8 fL Normal 9.0-12.7 [facility] Comment on above: Order Comment: Speci men Type: BLOOD SPECIMENOrdering Facility: [facility] Address: [address] [place] [address] Performed By: #### 5 8410-2 ####[facility] LABORATORYCLIA [id number] [address] [place] Platelets (Bld) [#/Vol] 365 10*3/uL Normal 150-400 [facility] Comment on above: Order Comment: Speci men Type: BLOOD SPECIMENOrdering Facility: [facility] Address: [address] [place] [address] Performed By: #### 5 8410-2 ####[facility] LABORATORYCLIA [id number] [address] [place] RBC (Bld) [#/Vol] 3.02 10*6/uL Low 3.90-5.20 [facility] Comment on above: Order Comment: Speci men Type: BLOOD SPECIMENOrdering Facility: [facility] Address: [address] [place], [place] [address] Performed By: #### 5 8410-2 ####[facility] LABORATORYCLIA [id number] [address] [place] WBC (Bld) [#/Vol] 10.77 10*3/uL Normal 3.70-11.00 [facility] Comment on above: Order Comment: Speci men Type: BLOOD SPECIMENOrdering Facility: [facility] Address: [address] [place] [address] Performed By: #### 5 8410-2 ####[facility] LABORATORYCLIA [id number] [address] OF [facility] Magnesium SerPl-mCncon 11-04 Magnesium [Mass/Vol] 2.1 mg/dL Normal 1.7-2.3 [facility] Comment on above: Order Comment: Speci men Type: BLOOD SPECIMENOrdering Facility: [facility] Address: [address] [place] [address] Performed By: #### 2 4321-2, , 27702-15 ####[facility] LABORATORYCLIA [id number] [address] [place] NURSING PROGon 11-04-2021 NURSING PROG Normal [facility] Phosphate SerPl-ncon 11-04 Phosphate [Mass/Vol] 2.8 mg/dL Normal 2.7-4.8 [facility] Comment on above: Order Comment: Speci men Type: BLOOD SPECIMENOrdering Facility: [facility] Address: [address] [place] [address] Performed By: #### 2 4321-2, , 27702-15 ####[facility] LABORATORYCLIA [id number] [address] [place] XR CHEST 1V FRONTALon 2021 XR CHEST 1V FRONTAL Normal [facility] ALLIED HEALTHon 11-03-2021 ALLIED HEALTH Normal [facility] ALLIED HEALTH Normal [facility] Basic metabolic 2000 panelon 11-03-2021 Anion gap [Moles/Vol] 9 mmol/L Normal 9-18 [facility] Comment on above: Order Comment: Speci men Type: BLOOD SPECIMENOrdering Facility: [facility] Address: [address] [place] [address] Performed By: #### 2 777-1, , 16469-5 ####[facility] LABORATORYCLIA [id number] [place] [address] [place] Calcium [Mass/Vol] 8.6 mg/dL Normal 8.5-10.2 [facility] Comment on above: Order Comment: Speci men Type: BLOOD SPECIMENOrdering Facility: [facility] Address: [address] [place] [address] Performed By: #### 2 777-1, , ####[facility] LABORATORYCLIA [id number] [address] [place] Chloride [Moles/Vol] 112 mmol/L High 97-105 [facility] Comment on above: Order Comment: Speci men Type: BLOOD SPECIMENOrdering Facility: [facility] Address: [address] [place] [address] Performed By: #### 2 777-1, , ####[facility] LABORATORYCLIA [id number] [address] [place] CO2 [Moles/Vol] 24 mmol/L Normal 22-30 [facility] Comment on above: Order Comment: Speci men Type: BLOOD SPECIMENOrdering Facility: [facility] Address: [address] [place] [address] Performed By: #### 2 777-1, , ####[facility] LABORATORYCLIA [id number] [address] STATES OF [facility] Creatinine [Mass/Vol] 0.32 mg/dL Low 0.58-0.96 [facility] Comment on above: Order Comment: Speci men Type: BLOOD SPECIMENOrdering Facility: [facility] Address: [address] [place] [address] Performed By: #### 2 777-1, , 72476-0 ####[facility] LABORATORYCLIA [id number] [address] ESTIMATED GLOMERULAR FILTRATION RATE 115 mL/min/1.73m??? Normal >=60 [facility] Comment on above: Order Comment: Speci men Type: BLOOD SPECIMENOrdering Facility: [facility] Address: [address] [place] [address] Result Comment: Ameena mated Glomerular Filtration Rate [...] GFR. Performed By: #### 2 777-1, , 49098-2 ####[facility] LABORATORYCLIA [id number] [place] [address] [place] Glucose [Mass/Vol] 209 mg/dL High 74-99 [facility] Comment on above: Order Comment: Speci men Type: BLOOD SPECIMENOrdering Facility: [facility] Address: [address] [place], [place] [address] Result Comment: The [place] Diabetes Association (ADA) provides guidance for cutoff [...] Standards of Medical Care in Diabetes 2016, [employer]. Diabetes Care. 2016.39(Suppl 1). Performed By: #### 2 777-1, , 63264-0 ####[facility] LABORATORYCLIA [id number] [place] [address] [place] Potassium [Moles/Vol] 3.7 mmol/L Normal 3.7-5.1 [facility] Comment on above: Order Comment: Speci men Type: BLOOD SPECIMENOrdering Facility: [facility] Address: [address] [id number] Performed By: #### 2 777-1, , 79745-9 ####[facility] LABORATORYCLIA [id number] [address] Sodium [Moles/Vol] 145 mmol/L High 136-144 [facility] Comment on above: Order Comment: Speci men Type: BLOOD SPECIMENOrdering Facility: [facility] Address: [address] [place] [address] Performed By: #### 2 777-1, 52350-4, 69777-9 ####[facility] LABORATORYCLIA [id number] [address] STATES [facility] Urea nitrogen [Mass/Vol] 21 mg/dL Normal 7-21 [facility] Comment on above: Order Comment: Speci men Type: BLOOD SPECIMENOrdering Facility: [facility] Address: [address] [place] [address] Performed By: #### 2 777-1, , 56424-8 ####[facility] [id number] [address] CALCIUM IONIZED Bon 11-04-19 Calcium.ionized (BldV) [Mass/Vol] 1.15 mmol/L Normal 1.08-1.30 [facility] Comment on above: Order Comment: Speci men Type: BLOOD SPECIMENOrdering Facility: [facility] Address: [address] [place] [address] Performed By: #### I CA ####[facility]IA [id number] [address] Calcium.ionized adjusted to pH 7.4 (Bld) [Moles/Vol] 1.18 mmol/L Normal 1.08-1.30 [facility] Comment on above: Order Comment: Speci men Type: BLOOD SPECIMENOrdering Facility: [facility] Address: [address] [place] [address] Performed By: #### I CA ####[facility] LABORATORYCLIA [id number] [address] CBC panel Auto (Bld)on 11-03 Erythrocyte distribution width (RBC) [Ratio] 18.7 % High 11.5-15.0 [facility] Comment on above: Order Comment: Speci men Type: BLOOD SPECIMENOrdering Facility: [facility] Address: [address] [place] [address] Performed By: #### 5 8410-2 ####[facility] LABORATORYCLIA [id number] [address] OF [facility] Hematocrit (Bld) [Volume fraction] 31.6 % Low 36.0-46.0 [facility] Comment on above: Order Comment: Speci men Type: BLOOD SPECIMENOrdering Facility: [facility] Address: [address] [place] [address] Performed By: #### 5 8410-2 ####[facility] LABORATORYCLIA [id number] [address] OF [facility] Hemoglobin (Bld) [Mass/Vol] 9.9 g/dL Low 11.5-15.5 [facility] Comment on above: Order Comment: Speci men Type: BLOOD SPECIMENOrdering Facility: [facility] Address: [address] [place] [address] Performed By: #### 5 8410-2 ####[facility] LABORATORYCLIA [id number] [address] OF [facility] MCH (RBC) [Entitic mass] 31.6 pg Normal 26.0-34.0 [facility] Comment on above: Order Comment: Speci men Type: BLOOD SPECIMENOrdering Facility: [facility] Address: [address] [place] [address] Performed By: #### 5 8410-2 ####[facility] LABORATORYCLIA [id number] [address] [place] MCHC (RBC) [Mass/Vol] 31.3 g/dL Normal 30.5-36.0 [facility] Comment on above: Order Comment: Speci men Type: BLOOD SPECIMENOrdering Facility: [facility] Address: [address] [place] [address] Performed By: #### 5 8410-2 ####[facility] LABORATORYCLIA [id number] [address] [place] MCV (RBC) [Entitic vol] 101.0 fL High 80.0-100.0 [facility] Comment on above: Order Comment: Speci men Type: BLOOD SPECIMENOrdering Facility: [facility] Address: [address] [place] [address] Performed By: #### 5 8410-2 ####[facility] LABORATORYCLIA [id number] [address] OF [place] Nucleated RBC (Bld) [#/Vol] 0.05 10*3/uL High <0.01 [facility] Comment on above: Order Comment: Speci men Type: BLOOD SPECIMENOrdering Facility: [facility] Address: [address] [place] [address] Performed By: #### 5 8410-2 ####[facility] LABORATORYCLIA [id number] [address] Platelet mean volume (Bld) [Entitic vol] 9.9 fL Normal 9.0-12.7 [facility] Comment on above: Order Comment: Speci men Type: BLOOD SPECIMENOrdering Facility: [facility] Address: [address] [place] [address] Performed By: #### 5 8410-2 ####[facility] LABORATORYCLIA [id number] [address] [place] Platelets (Bld) [#/Vol] 341 10*3/uL Normal 150-400 [facility] Comment on above: Order Comment: Speci men Type: BLOOD SPECIMENOrdering Facility: [facility] Address: [address] [place] [address] Performed By: #### 5 8410-2 ####[facility] LABORATORYCLIA [id number] [address] [place] RBC (Bld) [#/Vol] 3.13 10*6/uL Low 3.90-5.20 [facility] Comment on above: Order Comment: Speci men Type: BLOOD SPECIMENOrdering Facility: [facility] Address: [address] [place] [address] Performed By: #### 5 8410-2 ####[facility] LABORATORYCLIA [id number] [address] WBC (Bld) [#/Vol] 10.74 10*3/uL Normal 3.70-11.00 [facility] Comment on above: Order Comment: Speci men Type: BLOOD SPECIMENOrdering Facility: [facility] Address: [address] [place] [address] Performed By: #### 5 8410-2 ####[facility] LABORATORYCLIA [id number] [address] BRAIN WO IVCONon 11-04-19 CT BRAIN WO IVCON Normal [facility] Magnesium SerPl-mCncon 11-03 Magnesium [Mass/Vol] 2.1 mg/dL Normal 1.7-2.3 [facility] Comment on above: Order Comment: Speci men Type: BLOOD SPECIMENOrdering Facility: [facility] Address: [address] [place] [address] Performed By: #### 2 777-1, , 80826-3 ####[facility] LABORATORYCLIA [id number] [address] NURSING PROGon 11-03-2021 NURSING PROG Normal [facility] Phosphate SerPl-mCncon 11-03 Phosphate [Mass/Vol] 2.2 mg/dL Low 2.7-4.8 [facility] Comment on above: Order Comment: Speci men Type: BLOOD SPECIMENOrdering Facility: [facility] Address: [address] [place] [address] Performed By: #### 2 777-1, 34106-4, 26711-3 ####[facility] LABORATORYCLIA [id number] [address] XR CHEST 1V FRONTALon 2021 XR CHEST 1V FRONTAL Normal [facility] ALLIED HEALTHon 11-02-2021 ALLIED HEALTH Normal [facility] Bacteria Ur Culton Bacteria identified Cx Nom (U) ORGANISM ID: 1 10,000 -<50,000 CFU/ml Marie glabrata ORGANISM ID: 2 1,000 - <5,000 CFU/ml Marie albicans ORGANISM ID: 3 <1,000 CFU/ml Gram negative bacilli, oxidase positive Insignificant colony count. No further workup. Normal [facility] Comment on above: Performed By: #### 6 30-4 ####[facility] LABORATORYCLIA [id number] [address] STATES OF [facility] Basic metabolic 2000 panelon 11-02-2021 Anion gap [Moles/Vol] 9 mmol/L Normal 05-05 [facility] Comment on above: Order Comment: Speci men Type: BLOOD SPECIMENOrdering Facility: [facility] Address: [address] [place] [address] Performed By: #### 2 4321-2, , 2776-08 ####[facility] LABORATORYCLIA [id number] [place] [address] [place] Calcium [Mass/Vol] 8.5 mg/dL Normal 8.5-10.2 [facility] Comment on above: Order Comment: Speci men Type: BLOOD SPECIMENOrdering Facility: [facility] Address: [address] [place] [address] Performed By: #### 2 4321-2, , 2776-08 ####[facility] LABORATORYCLIA [id number] [place] [address] [place] Chloride [Moles/Vol] 110 mmol/L High 97-105 [facility] Comment on above: Order Comment: Speci men Type: BLOOD SPECIMENOrdering Facility: [facility] Address: [address] [place] [address] Performed By: #### 2 4321-2, , 2776-08 ####[facility]ITALCLIA [id number] [place] [address] [place] CO2 [Moles/Vol] 25 mmol/L Normal 22-30 [facility] Comment on above: Order Comment: Speci esther Type: BLOOD SPECIMENOrdering Facility: [facility] Address: [address] [place] [address] Performed By: #### 2 4321-2, , 2776-08 ####[facility] LABORATORYCLIA [id number] [address] [id number] [facility] Creatinine [Mass/Vol] 0.42 mg/dL Low 0.58-0.96 [facility] Comment on above: Order Comment: Speci men Type: BLOOD SPECIMENOrdering Facility: [facility] Address: [address] [place] [address] Performed By: #### 2 4321-2, , 2776-08 ####[place] HOSPITALIA [id number] [address] ESTIMATED GLOMERULAR FILTRATION RATE 108 mL/min/1.73m??? Normal >=60 [facility] Comment on above: Order Comment: Lauren santana Type: BLOOD SPECIMENOrdering Facility: [facility] Address: [address] [place] [address] Result Comment: Ameena mated Glomerular Filtration Rate [...] Performed By: #### 2 4321-2, , 2776-08 ####[facility] LABORATORYCLIA [id number] [place] [address] [place] Glucose [Mass/Vol] 217 mg/dL High 74-99 [facility] Comment on above: Order Comment: Speci men Type: BLOOD SPECIMENOrdering Facility: [facility] Address: [address] [phone] Result Comment: The [place] Diabetes Association (ADA) provides guidance for cutoff [...] Standards of Medical Care in Diabetes 2016, [place] [employer]. Diabetes Care. 2016.39(Suppl 1). Performed By: #### 2 4321-2, , 2776-08 ####[facility] LABORATORYCLIA [id number] [place] [address] [place] Potassium [Moles/Vol] 3.7 mmol/L Normal 3.7-5.1 [facility] Comment on above: Order Comment: Speci men Type: BLOOD SPECIMENOrdering Facility: [facility] Address: [address] [address] Performed By: #### 2 4321-2, , 2776-08 ####[facility] LABORATORYCLIA [id number] [place] [address] [place] Sodium [Moles/Vol] 144 mmol/L Normal 136-144 [facility] Comment on above: Order Comment: Speci men Type: BLOOD SPECIMENOrdering Facility: [facility] Address: [address] [place] [address] Performed By: #### 2 4321-2, , 2776-08 ####[facility] LABORATORYCLIA [id number] [place] [address] [place] Urea nitrogen [Mass/Vol] 22 mg/dL High 7-21 [facility] Comment on above: Order Comment: Speci men Type: BLOOD SPECIMENOrdering Facility: [facility] Address: [address] [address] Performed By: #### 2 4321-2, 04263-4, 2777-1 ####[facility] LABORATORYCLIA [id number] [address] CALCIUM IONIZED Bon 11-03-19 Calcium.ionized (BldV) [Mass/Vol] 1.13 mmol/L Normal 1.08-1.30 [facility] Comment on above: Order Comment: Speci men Type: BLOOD SPECIMENOrdering Facility: [facility] Address: [address] [place] [address] Performed By: #### I CA ####[facility] LABORATORYCLIA [id number] [address] Calcium.ionized adjusted to pH 7.4 (Bld) [Moles/Vol] 1.18 mmol/L Normal 1.08-1.30 [facility] Comment on above: Order Comment: Speci men Type: BLOOD SPECIMENOrdering Facility: [facility] Address: [address] [place] [address] Performed By: #### I CA ####[facility] LABORATORYCLIA [id number] [address] CASE MANAGEMon 11-02-2021 CASE MANAGEM Normal [facility] CASE MANAGEM Normal [facility] CBC panel Auto (Bld)on 11-02 Erythrocyte distribution width (RBC) [Ratio] 19.0 % High 11.5-15.0 [facility] Comment on above: Order Comment: Speci men Type: BLOOD SPECIMENOrdering Facility: [facility] Address: [address] [place] [address] Performed By: #### 5 8410-2 ####[facility] LABORATORYCLIA [id number] [address] Hematocrit (Bld) [Volume fraction] 29.9 % Low 36.0-46.0 [facility] Comment on above: Order Comment: Speci men Type: BLOOD SPECIMENOrdering Facility: [facility] Address: [address] [place] [address] Performed By: #### 5 8410-2 ####[facility] LABORATORYCLIA [id number] [address] OF [facility] Hemoglobin (Bld) [Mass/Vol] 9.4 g/dL Low 11.5-15.5 [facility] Comment on above: Order Comment: Speci men Type: BLOOD SPECIMENOrdering Facility: [facility] Address: [address] [place] [address] Performed By: #### 5 8410-2 ####[facility] LABORATORYCLIA [id number] [address] MCH (RBC) [Entitic mass] 31.9 pg Normal 26.0-34.0 [facility] Comment on above: Order Comment: Speci men Type: BLOOD SPECIMENOrdering Facility: [facility] Address: [address] [place] [address] Performed By: #### 5 8410-2 ####[facility] LABORATORYCLIA [id number] [address] MCHC (RBC) [Mass/Vol] 31.4 g/dL Normal 30.5-36.0 [facility] Comment on above: Order Comment: Speci men Type: BLOOD SPECIMENOrdering Facility: [facility] Address: [address] [place] [address] Performed By: #### 5 8410-2 ####[facility] LABORATORYCLIA [id number] [address] STATES OF [facility] MCV (RBC) [Entitic vol] 101.4 fL High 80.0-100.0 [facility] Comment on above: Order Comment: Speci men Type: BLOOD SPECIMENOrdering Facility: [facility] Address: [address] [place] [address] Performed By: #### 5 8410-2 ####[facility] LABORATORYCLIA [id number] [address] Nucleated RBC (Bld) [#/Vol] 0.03 10*3/uL High <0.01 [facility] Comment on above: Order Comment: Speci men Type: BLOOD SPECIMENOrdering Facility: [facility] Address: [address] [place] [address] Performed By: #### 5 8410-2 ####[facility] LABORATORYCLIA [id number] [place] [address] [place] Platelet mean volume (Bld) [Entitic vol] 9.7 fL Normal 9.0-12.7 [facility] Comment on above: Order Comment: Speci men Type: BLOOD SPECIMENOrdering Facility: [facility] Address: [address] [place] [address] Performed By: #### 5 8410-2 ####[facility] LABORATORYCLIA [id number] [address] [place] Platelets (Bld) [#/Vol] 280 10*3/uL Normal 150-400 [facility] Comment on above: Order Comment: Speci men Type: BLOOD SPECIMENOrdering Facility: [facility] Address: [address] [place] [address] Performed By: #### 5 8410-2 ####[facility] LABORATORYCLIA [id number] [place] [address] [place] RBC (Bld) [#/Vol] 2.95 10*6/uL Low 3.90-5.20 [facility] Comment on above: Order Comment: Speci men Type: BLOOD SPECIMENOrdering Facility: [facility] Address: [address] [place] [address] Performed By: #### 5 8410-2 ####[facility] LABORATORYCLIA [id number] [place] [address] [place] WBC (Bld) [#/Vol] 9.55 10*3/uL Normal 3.70-11.00 [facility] Comment on above: Order Comment: Speci men Type: BLOOD SPECIMENOrdering Facility: [facility] Address: [address] [place] [address] Performed By: #### 5 8410-2 ####[facility] LABORATORYCLIA [id number] [address] OF [place] CONSULT PROGon 11-02-2021 CONSULT PROG Normal [facility] CONSULT PROG Normal [facility] Magnesium SerPl-mCncon 11-02 Magnesium [Mass/Vol] 2.0 mg/dL Normal 1.7-2.3 [facility] Comment on above: Order Comment: Speci men Type: BLOOD SPECIMENOrdering Facility: [facility] Address: [address] [place] [address] Performed By: #### 2 4321-2, , 2776-08 ####[facility] LABORATORYCLIA [id number] [address] NURSING PROGon 11-02-2021 NURSING PROG Normal [facility] Phosphate SerPl-mCncon 11-02 Phosphate [Mass/Vol] 2.5 mg/dL Low 2.7-4.8 [facility] Comment on above: Order Comment: Speci men Type: BLOOD SPECIMENOrdering Facility: [facility] Address: [address] [place] [address] Performed By: #### 2 4321-2, , 2776-08 ####[facility] LABORATORYCLIA [id number] [address] OF [place] STAPH AUREUS PCRon 2 S. aureus and MRSA panel NADEEM+probe (Nose) Normal Negative [facility] Comment on above: Order Comment: Speci men Type: SWAB OF INTERNAL NOSEOrdering Facility: [facility] Address: [address] [place] [address] Result Comment: Nega tive for Staphylococcus aureus by PCR.Negative for MRSA by PCR Performed By: #### S APCR ####[facility] LABORATORYCLIA [id number] [address] STATES [place] XR CHEST 1V FRONTALon 2021 XR CHEST 1V FRONTAL Normal [facility] ALLIED HEALTHon 11-01-2021 ALLIED HEALTH Normal [facility] Bacteria Spec Resp Culton Bacteria identified Respiratory culture Nom (Unsp spec) CULTURE, RESPIRATORY: Moderate Normal respiratory hyun present GRAM STAIN: Many Gram positive cocci in pairs and chains Rare Yeast Few Polymorphonuclear leukocytes Rare Epithelial cells Abnormal [facility] Comment on above: Performed By: #### 3 2355-0 ####[facility] LABORATORYCLIA [id number] [place] [address] [place] Basic metabolic 2000 panelon 11-01-2021 Anion gap [Moles/Vol] 12 mmol/L Normal 9-18 [facility] Comment on above: Order Comment: Speci men Type: BLOOD SPECIMENOrdering Facility: [facility] Address: [address] [place] [address] Performed By: #### 2 4321-2, 2776-08, ####[facility] LABORATORYCLIA [id number] [place] [address] [place] Calcium [Mass/Vol] 8.7 mg/dL Normal 8.5-10.2 [facility] Comment on above: Order Comment: Speci men Type: BLOOD SPECIMENOrdering Facility: [facility] Address: [address] [place] [address] Performed By: #### 2 4321-2, 2776-08, ####[facility] LABORATORYCLIA [id number] [place] [address] [place] Chloride [Moles/Vol] 111 mmol/L High 97-105 [facility] Comment on above: Order Comment: Speci men Type: BLOOD SPECIMENOrdering Facility: [facility] Address: [address] [place] [address] Performed By: #### 2 4321-2, 2776-08, ####[facility] LABORATORYCLIA [id number] [place] [address] [place] CO2 [Moles/Vol] 24 mmol/L Normal 22-30 [facility] Comment on above: Order Comment: Speci men Type: BLOOD SPECIMENOrdering Facility: [facility] Address: [address] [place] [address] Performed By: #### 2 4321-2, 2776-08, ####[facility] LABORATORYCLIA [id number] [place] [address] [place] Creatinine [Mass/Vol] 0.40 mg/dL Low 0.58-0.96 [facility] Comment on above: Order Comment: Speci men Type: BLOOD SPECIMENOrdering Facility: [facility] Address: [address] [place] [address] Performed By: #### 2 4321-2, 2776-08, ####[facility] [id number] [address] STATES OF [facility] ESTIMATED GLOMERULAR FILTRATION RATE 109 mL/min/1.73m??? Normal >=60 [facility] Comment on above: Order Comment: Speci men Type: BLOOD SPECIMENOrdering Facility: [facility] Address: [address] [place] [address] Result Comment: Ameena mated Glomerular Filtration Rate [...] GFR. Performed By: #### 2 4321-2, 2776-08, ####[facility] LABORATORYCLIA [id number] [place] [address] [place] Glucose [Mass/Vol] 207 mg/dL High 74-99 [facility] Comment on above: Order Comment: Speci men Type: BLOOD SPECIMENOrdering Facility: [facility] Address: [address] [place], [place] [address] Result Comment: The [place] [employer] (ADA) provides guidance for cutoff [...] Standards of Medical Care in Diabetes 2016, [employer]. Diabetes Care. 2016.39(Suppl 1). Performed By: #### 2 4321-2, 2776-08, ####[facility] LABORATORYCLIA [id number] [place] [address] [place] Potassium [Moles/Vol] 4.0 mmol/L Normal 3.7-5.1 [facility] Comment on above: Order Comment: Speci men Type: BLOOD SPECIMENOrdering Facility: [facility] Address: [address] [place] [address] Performed By: #### 2 4321-2, 2776-08, ####[facility] LABORATORYCLIA [id number] [place] [address] [place] Sodium [Moles/Vol] 147 mmol/L High 136-144 [facility] Comment on above: Order Comment: Speci men Type: BLOOD SPECIMENOrdering Facility: [facility] Address: [address] [place] [address] Performed By: #### 2 4321-2, 2776-08, ####[facility] LABORATORYCLIA [id number] [place] [address] [place] Urea nitrogen [Mass/Vol] 20 mg/dL Normal 7-21 [facility] Comment on above: Order Comment: Speci men Type: BLOOD SPECIMENOrdering Facility: [facility] Address: [address] [address] Performed By: #### 2 4321-2, 2776-08, ####[facility] LABORATORYCLIA [id number] [address] [place] CALCIUM IONIZED Bon 11-02-19 Calcium.ionized (BldV) [Mass/Vol] 1.19 mmol/L Normal 1.08-1.30 [facility] Comment on above: Order Comment: Speci men Type: BLOOD SPECIMENOrdering Facility: [facility] Address: [address] [place] [address] Performed By: #### I CA ####[facility] LABORATORYCLIA [id number] [address] STATES [facility] Calcium.ionized adjusted to pH 7.4 (Bld) [Moles/Vol] 1.20 mmol/L Normal 1.08-1.30 [facility] Comment on above: Order Comment: Speci men Type: BLOOD SPECIMENOrdering Facility: [facility] Address: [address] [place] [address] Performed By: #### I CA ####[facility] LABORATORYCLIA [id number] [address] OF [facility] CASE MANAGEMon 11-01-2021 CASE MANAGEM Normal [facility] CBC panel Auto (Bld)on 11-01 Erythrocyte distribution width (RBC) [Ratio] 19.7 % High 11.5-15.0 [facility] Comment on above: Order Comment: Speci men Type: BLOOD SPECIMENOrdering Facility: [facility] Address: [address] [place] [address] Performed By: #### 5 8410-2 ####[facility] LABORATORYCLIA [id number] [address] Hematocrit (Bld) [Volume fraction] 29.9 % Low 36.0-46.0 [facility] Comment on above: Order Comment: Speci men Type: BLOOD SPECIMENOrdering Facility: [facility] Address: [address] [place] [address] Performed By: #### 5 8410-2 ####[facility] LABORATORYCLIA [id number] [address] Hemoglobin (Bld) [Mass/Vol] 9.3 g/dL Low 11.5-15.5 [facility] Comment on above: Order Comment: Speci men Type: BLOOD SPECIMENOrdering Facility: [facility] Address: [address] [place] [address] Performed By: #### 5 8410-2 ####[facility] LABORATORYCLIA [id number] [address] MCH (RBC) [Entitic mass] 31.2 pg Normal 26.0-34.0 [facility] Comment on above: Order Comment: Speci men Type: BLOOD SPECIMENOrdering Facility: [facility] Address: [address] [place] [address] Performed By: #### 5 8410-2 ####[facility] LABORATORYCLIA [id number] [address] MCHC (RBC) [Mass/Vol] 31.1 g/dL Normal 30.5-36.0 [facility] Comment on above: Order Comment: Speci men Type: BLOOD SPECIMENOrdering Facility: [facility] Address: [address] [place] [address] Performed By: #### 5 8410-2 ####[facility] LABORATORYCLIA [id number] [address] MCV (RBC) [Entitic vol] 100.3 fL High 80.0-100.0 [facility] Comment on above: Order Comment: Speci men Type: BLOOD SPECIMENOrdering Facility: [facility] Address: [address] [place] [address] Performed By: #### 5 8410-2 ####[facility] LABORATORYCLIA [id number] [address] Nucleated RBC (Bld) [#/Vol] 0.03 10*3/uL High <0.01 [facility] Comment on above: Order Comment: Speci men Type: BLOOD SPECIMENOrdering Facility: [facility] Address: [address] Performed By: #### 5 8410-2 ####[facility] LABORATORYCLIA [id number] [address] Platelet mean volume (Bld) [Entitic vol] 9.8 fL Normal 9.0-12.7 [facility] Comment on above: Order Comment: Speci men Type: BLOOD SPECIMENOrdering Facility: [facility] Address: [address] [place] [address] Performed By: #### 5 8410-2 ####[facility] LABORATORYCLIA [id number] [address] OF [facility] Platelets (Bld) [#/Vol] 239 10*3/uL Normal 150-400 [facility] Comment on above: Order Comment: Speci men Type: BLOOD SPECIMENOrdering Facility: [facility] Address: [address] [place] [address] Performed By: #### 5 8410-2 ####[facility] LABORATORYCLIA [id number] [address] [place] RBC (Bld) [#/Vol] 2.98 10*6/uL Low 3.90-5.20 [facility] Comment on above: Order Comment: Speci men Type: BLOOD SPECIMENOrdering Facility: [facility] Address: [address] [place] [address] Performed By: #### 5 8410-2 ####[facility] LABORATORYCLIA [id number] [address] [place] WBC (Bld) [#/Vol] 10.01 10*3/uL Normal 3.70-11.00 [facility] Comment on above: Order Comment: Speci men Type: BLOOD SPECIMENOrdering Facility: [facility] Address: [address] [place] [address] Performed By: #### 5 8410-2 ####[facility] LABORATORYCLIA [id number] [address] [place] CONSULT PROGon 11-01-2021 CONSULT PROG Normal [facility] Magnesium SerPl-mCncon 11-01 Magnesium [Mass/Vol] 2.0 mg/dL Normal 1.7-2.3 [facility] Comment on above: Order Comment: Speci men Type: BLOOD SPECIMENOrdering Facility: [facility] Address: [address] Performed By: #### 2 4321-2, 2776-, ####[facility] LABORATORYCLIA [id number] [address] [place] NURSING PROGon 11-01-2021 NURSING PROG Normal [facility] NURSING PROG Normal [facility] NURSING PROG Normal [facility] NUTRITIONon 11-01-2021 NUTRITION Normal [facility] Phosphate SerPl-mCncon 11-01 Phosphate [Mass/Vol] 3.3 mg/dL Normal 2.7-4.8 [facility] Comment on above: Order Comment: Speci men Type: BLOOD SPECIMENOrdering Facility: [facility] Address: [address] [place] [address] Performed By: #### 2 4321-2, 2776-, ####[facility] LABORATORYCLIA [id number] [address] [place] Urinalysis complete panel (U )on 11-01-2021 Bacteria LM.HPF (Urine sed) [#/Area] Many Abnormal None Seen [facility] Comment on above: Order Comment: Speci men Type: URINE SPECIMENOrdering Facility: [facility] Address: [address] [place], [place] [address] Performed By: #### 2 4356-8 ####[facility] LABORATORYCLIA [id number] [place] [address] [place] Bilirubin Ql (U) Negative Normal Negative [facility] Comment on above: Order Comment: Speci men Type: URINE SPECIMENOrdering Facility: [facility] Address: [address] [address] Performed By: #### 2 4356-8 ####[facility] LABORATORYCLIA [id number] [address] Clarity (Unsp spec) Turbid Abnormal Clear [facility] Comment on above: Order Comment: Speci men Type: URINE SPECIMENOrdering Facility: [facility] Address: [address] [place] [address] Performed By: #### 2 4356-8 ####[facility] LABORATORYCLIA [id number] [address] Color (U) Dark Brown Abnormal yellow [facility] Comment on above: Order Comment: Speci men Type: URINE SPECIMENOrdering Facility: [facility] Address: [address] [place] [address] Performed By: #### 2 4356-8 ####[facility] LABORATORYCLIA [id number] [address] Epithelial cells LM.HPF (Urine sed) [#/Area] Many Normal [facility] Comment on above: Order Comment: Speci men Type: URINE SPECIMENOrdering Facility: [facility] Address: [address] [place] [address] Performed By: #### 2 4356-8 ####[facility] LABORATORYCLIA [id number] [address] Glucose Test strip (U) [Mass/Vol] 4+ Abnormal Negative [facility] Comment on above: Order Comment: Speci men Type: URINE SPECIMENOrdering Facility: [facility] Address: [address] [address] Performed By: #### 2 4356-8 ####[facility] LABORATORYCLIA [id number] [address] Hemoglobin Ql (U) 3+ Abnormal Negative [facility] Comment on above: Order Comment: Speci men Type: URINE SPECIMENOrdering Facility: [facility] Address: [address] [place] [address] Performed By: #### 2 4356-8 ####[facility] LABORATORYCLIA [id number] [address] Ketones Ql (U) Negative Normal Negative [facility] Comment on above: Order Comment: Speci men Type: URINE SPECIMENOrdering Facility: [facility] Address: [address] [place] [address] Performed By: #### 2 4356-8 ####[facility] LABORATORYCLIA [id number] [address] Leukocyte esterase Test strip Ql (U) 500 Nabeel/mL Abnormal Negative [facility] Comment on above: Order Comment: Speci men Type: URINE SPECIMENOrdering Facility: [facility] Address: [address] [place] [address] Performed By: #### 2 4356-8 ####[facility] LABORATORYCLIA [id number] [address] [place] [facility] Nitrite Ql (U) Negative Normal Negative [facility] Comment on above: Order Comment: Speci men Type: URINE SPECIMENOrdering Facility: [facility] Address: [address] [place] [address] Performed By: #### 2 4356-8 ####[facility] LABORATORYCLIA [id number] [address] [place] pH (U) 6.0 [pH] Normal 5.0-8.0 [facility] Comment on above: Order Comment: Speci men Type: URINE SPECIMENOrdering Facility: [facility] Address: [facility] [address] Performed By: #### 2 4356-8 ####[facility] LABORATORYCLIA [id number] [address] Protein (U) [Mass/Vol] 2+ Abnormal Negative [facility] Comment on above: Order Comment: Speci men Type: URINE SPECIMENOrdering Facility: [facility] Address: [address] [place] [address] Performed By: #### 2 4356-8 ####[facility] LABORATORYCLIA [id number] [address] RBC LM.HPF (Urine sed) [#/Area] /[HPF] Abnormal 0-3 /HPF [facility] Comment on above: Order Comment: Speci men Type: URINE SPECIMENOrdering Facility: [facility] Address: [address] [place] [address] Performed By: #### 2 4356-8 ####[facility] LABORATORYCLIA [id number] [address] Specific gravity (U) [Rel density] 1.041 High 1.005-1.030 [facility] Comment on above: Order Comment: Speci men Type: URINE SPECIMENOrdering Facility: [facility] Address: [address] [place] [address] Performed By: #### 2 4356-8 ####[facility] LABORATORYCLIA [id number] [address] Urobilinogen Ql (U) Normal Normal Negative [facility] Comment on above: Order Comment: Speci men Type: URINE SPECIMENOrdering Facility: [facility] Address: [address] [place] [address] Performed By: #### 2 4356-8 ####[facility] LABORATORYCLIA [id number] [address] WBC LM.HPF (Urine sed) [#/Area] /[HPF] Abnormal 0-5 /HPF [facility] Comment on above: Order Comment: Speci men Type: URINE SPECIMENOrdering Facility: [facility] Address: [address] [place] [address] Performed By: #### 2 4356-8 ####[facility] LABORATORYCLIA [id number] [address] Yeast.budding LM.HPF (Urine sed) [#/Area] Many Abnormal None Seen [facility] Comment on above: Order Comment: Speci men Type: URINE SPECIMENOrdering Facility: [facility] Address: [address] [place] [address] Performed By: #### 2 4356-8 ####[facility] LABORATORYCLIA [id number] [place] [address] [place] XR CHEST 1V FRONTALon 2021 XR CHEST 1V FRONTAL Normal [facility] ALLIED HEALTHon 10-31-2021 ALLIED HEALTH Normal [facility] Basic metabolic 2000 panelon 10-31-2021 Anion gap [Moles/Vol] 9 mmol/L Normal 9-18 [facility] Comment on above: Order Comment: Speci men Type: BLOOD SPECIMENOrdering Facility: [facility] Address: [address] [place] [address] Performed By: #### 1 9123-9, 2777-1, 99156-1 ####[facility] LABORATORYCLIA [id number] [place] [address] [place] Calcium [Mass/Vol] 8.8 mg/dL Normal 8.5-10.2 [facility] Comment on above: Order Comment: Speci men Type: BLOOD SPECIMENOrdering Facility: [facility] Address: [address] [place] [address] Performed By: #### 1 9123-9, 2777-1, 05383-4 ####[facility] LABORATORYCLIA [id number] [place] [address] [place] Chloride [Moles/Vol] 112 mmol/L High 97-105 [facility] Comment on above: Order Comment: Speci men Type: BLOOD SPECIMENOrdering Facility: [facility] Address: [address] [place] [address] Performed By: #### 1 9123-9, 2777-1, 46482-8 ####[facility] LABORATORYCLIA [id number] [place] [address] [place] CO2 [Moles/Vol] 25 mmol/L Normal 22-30 [facility] Comment on above: Order Comment: Speci men Type: BLOOD SPECIMENOrdering Facility: [facility] Address: [address] [place] [address] Performed By: #### 1 9123-9, 2777-, 17855-7 ####[facility] [id number] [place] [address] [place] Creatinine [Mass/Vol] 0.40 mg/dL Low 0.58-0.96 [facility] Comment on above: Order Comment: Speckatie men Type: BLOOD SPECIMENOrdering Facility: [facility] Address: [address] [place] [address] Performed By: #### 1 9123-9, 2777-, 35327-8 ####[place] H[facility]PITALIA [id number] [address] [place] ESTIMATED GLOMERULAR FILTRATION RATE 109 mL/min/1.73m??? Normal >=60 [facility] Comment on above: Order Comment: Speckatie men Type: BLOOD SPECIMENOrdering Facility: [facility] Address: [address] [place] [address] Result Comment: Ameena mated Glomerular Filtration Rate [...] GFR. Performed By: #### 1 9123-9, 2777-, 46534-0 ####[facility] LABORATORYIA [id number] [place] [address] [place] Glucose [Mass/Vol] 178 mg/dL High 74-99 [facility] Comment on above: Order Comment: Lauren santana Type: BLOOD SPECIMENOrdering Facility: [facility] Address: [address] [place] [address] Result Comment: The [employer] Diabetes [employer] (ADA) provides guidance for cutoff [...] Standards of Medical Care in Diabetes 2016, [employer]. Diabetes Care. 2016.39(Suppl 1). Performed By: #### 1 9123-9, 2777-, 48389-7 ####[facility] LABORATORYCLIA [id number] [place] [address] [place] Potassium [Moles/Vol] 3.8 mmol/L Normal 3.7-5.1 [facility] Comment on above: Order Comment: Lauren santana Type: BLOOD SPECIMENOrdering Facility: [facility] Address: [address] [place] [address] Performed By: #### 1 9123-9, 27702-15, 34516-3 ####[facility] [id number] [place] [address] [place] Sodium [Moles/Vol] 146 mmol/L High 136-144 [facility] Comment on above: Order Comment: Lauren santana Type: BLOOD SPECIMENOrdering Facility: [facility] Address: [address] [place] [address] Performed By: #### 1 9123-9, 27702-15, 18983-9 ####[facility] LABORATORYCLIA [id number] [place] [address] [place] Urea nitrogen [Mass/Vol] 19 mg/dL Normal 7-21 [facility] Comment on above: Order Comment: Lauren santana Type: BLOOD SPECIMENOrdering Facility: [facility] Address: [address] [address] Performed By: #### 1 9123-9, 2777, 49021-4 ####[facility] LABORATORYCLIA [id number] [address] CALCIUM IONIZED Bon 11-01-19 Calcium.ionized (BldV) [Mass/Vol] 1.18 mmol/L Normal 1.08-1.30 [facility] Comment on above: Order Comment: Speci men Type: BLOOD SPECIMENOrdering Facility: [facility] Address: [address] [place] [address] Performed By: #### I CA ####[facility] LABORATORYCLIA [id number] [address] Calcium.ionized adjusted to pH 7.4 (Bld) [Moles/Vol] 1.23 mmol/L Normal 1.08-1.30 [facility] Comment on above: Order Comment: Speci men Type: BLOOD SPECIMENOrdering Facility: [facility] Address: [address] [place] [address] Performed By: #### I CA ####[facility] LABORATORYCLIA [id number] [address] CASE MANAGEMon 10-31-2021 CASE MANAGEM Normal [facility] CBC panel Auto (Bld)on 10-31 Erythrocyte distribution width (RBC) [Ratio] 19.9 % High 11.5-15.0 [facility] Comment on above: Order Comment: Speci men Type: BLOOD SPECIMENOrdering Facility: [facility] Address: [address] [place] [address] Performed By: #### 5 8410-2 ####[facility] LABORATORYCLIA [id number] [address] [place] [facility] Hematocrit (Bld) [Volume fraction] 27.3 % Low 36.0-46.0 [facility] Comment on above: Order Comment: Speci men Type: BLOOD SPECIMENOrdering Facility: [facility] Address: [address] [place] [address] Performed By: #### 5 8410-2 ####[facility] LABORATORYCLIA [id number] [address] Hemoglobin (Bld) [Mass/Vol] 8.8 g/dL Low 11.5-15.5 [facility] Comment on above: Order Comment: Speci men Type: BLOOD SPECIMENOrdering Facility: [facility] Address: [address] [place] [address] Performed By: #### 5 8410-2 ####[facility] LABORATORYCLIA [id number] [address] MCH (RBC) [Entitic mass] 31.7 pg Normal 26.0-34.0 [facility] Comment on above: Order Comment: Speci men Type: BLOOD SPECIMENOrdering Facility: [facility] Address: [address] [place] [address] Performed By: #### 5 8410-2 ####[facility] LABORATORYCLIA [id number] [address] OF [facility] MCHC (RBC) [Mass/Vol] 32.2 g/dL Normal 30.5-36.0 [facility] Comment on above: Order Comment: Speci men Type: BLOOD SPECIMENOrdering Facility: [facility] Address: [address] [place] [address] Performed By: #### 5 8410-2 ####[facility] LABORATORYCLIA [id number] [address] MCV (RBC) [Entitic vol] 98.2 fL Normal 80.0-100.0 [facility] Comment on above: Order Comment: Speci men Type: BLOOD SPECIMENOrdering Facility: [facility] Address: [address] [place] [address] Performed By: #### 5 8410-2 ####[facility] LABORATORYCLIA [id number] [address] Nucleated RBC (Bld) [#/Vol] 10*3/uL Normal <0.01 [facility] Comment on above: Order Comment: Speci men Type: BLOOD SPECIMENOrdering Facility: [facility] Address: [address] [place] [address] Performed By: #### 5 8410-2 ####[facility] LABORATORYCLIA [id number] [address] [place] [facility] Platelet mean volume (Bld) [Entitic vol] 9.7 fL Normal 9.0-12.7 [facility] Comment on above: Order Comment: Speci men Type: BLOOD SPECIMENOrdering Facility: [facility] Address: [address] [place] [address] Performed By: #### 5 8410-2 ####[facility] LABORATORYCLIA [id number] [address] [place] Platelets (Bld) [#/Vol] 206 10*3/uL Normal 150-400 [facility] Comment on above: Order Comment: Speci men Type: BLOOD SPECIMENOrdering Facility: [facility] Address: [address] [place] [address] Performed By: #### 5 8410-2 ####[facility] LABORATORYCLIA [id number] [place] [address] [place] RBC (Bld) [#/Vol] 2.78 10*6/uL Low 3.90-5.20 [facility] Comment on above: Order Comment: Speci men Type: BLOOD SPECIMENOrdering Facility: [facility] Address: [address] [place] [address] Performed By: #### 5 8410-2 ####[facility] LABORATORYCLIA [id number] [place] [address] [place] WBC (Bld) [#/Vol] 8.28 10*3/uL Normal 3.70-11.00 [facility] Comment on above: Order Comment: Speci men Type: BLOOD SPECIMENOrdering Facility: [facility] Address: [address] [place] [address] Performed By: #### 5 8410-2 ####[facility] LABORATORYCLIA [id number] [address] [place] CONSULT PROGon 10-31-2021 CONSULT PROG Normal [facility] Magnesium SerPl-mCncon 10-31 Magnesium [Mass/Vol] 2.1 mg/dL Normal 1.7-2.3 [facility] Comment on above: Order Comment: Speci men Type: BLOOD SPECIMENOrdering Facility: [facility] Address: [address] [place] [address] Performed By: #### 1 9123-9, 2777-1, 71895-4 ####[facility] LABORATORYCLIA [id number] [place] [address] [place] NURSING PROGon 10-31-2021 NURSING PROG Normal [facility] Osmolality SerPlon Osmolality [Osmolality] 307 mosm/kg High 275-300 [facility] Comment on above: Order Comment: Speci men Type: BLOOD SPECIMENOrdering Facility: [facility] Address: [address] [place] [address] Performed By: #### 2 692-2 ####[facility] [id number] [place] [address] [place] Osmolality Uron 10-31-2021 Osmolality (U) [Osmolality] 1010 mosm/kg Normal 50-1,200 [facility] Comment on above: Order Comment: Speci men Type: URINE SPECIMENOrdering Facility: [facility] Address: [address] [place] [address] Performed By: #### 2 695-5, 5811-5 ####[facility] LABORATORYCLIA [id number] [place] [address] [place] Phosphate SerPl-mCncon 10-31 Phosphate [Mass/Vol] 3.3 mg/dL Normal 2.7-4.8 [facility] Comment on above: Order Comment: Speci men Type: BLOOD SPECIMENOrdering Facility: [facility] Address: [address] [place] [address] Performed By: #### 1 9123-9, 2777-1, 75674-8 ####[facility] LABORATORYCLIA [id number] [place] [address] [place] Sodium ?Tm Ur-sCncon 022 Sodium Unsp time (U) [Moles/Vol] 83 mmol/L Normal 14-216 [facility] Comment on above: Order Comment: Speci men Type: URINE SPECIMENOrdering Facility: [facility] Address: [address] [place] [address] Performed By: #### 3 5678-2 ####[facility] LABORATORYCLIA [id number] [address] [place] Specific gravity Test strip (U) [Rel density]on 10-31-2021 Specific gravity (U) [Rel density] >1.035 High 1.006-1.029 [facility] Comment on above: Order Comment: Speci men Type: URINE SPECIMENOrdering Facility: [facility] Address: [address] [place] [address] Performed By: #### 2 695-5, 5811-5 ####[facility] LABORATORYCLIA [id number] [place] [address] [place] XR CHEST 1V FRONTALon 2021 XR CHEST 1V FRONTAL Normal [facility] ALLIED HEALTHon 10-30-2021 ALLIED HEALTH Normal [facility] Basic metabolic 2000 panelon 10-30-2021 Anion gap [Moles/Vol] 8 mmol/L Low 9-18 [facility] Comment on above: Order Comment: Speci men Type: BLOOD SPECIMENOrdering Facility: [facility] Address: [address] [place] [address] Performed By: #### 2 777-1, 76554-6, 56790-6 ####[facility] LABORATORYCLIA [id number] [place] [address] [place] Calcium [Mass/Vol] 8.4 mg/dL Low 8.5-10.2 [facility] Comment on above: Order Comment: Speci men Type: BLOOD SPECIMENOrdering Facility: [facility] Address: [address] [place] [address] Performed By: #### 2 777-1, 42638-5, ####[facility] LABORATORYCLIA [id number] [place] [address] [place] Chloride [Moles/Vol] 112 mmol/L High 97-105 [facility] Comment on above: Order Comment: Speci men Type: BLOOD SPECIMENOrdering Facility: [facility] Address: [address] [place] [address] Performed By: #### 2 777-1, 20171-0, ####[facility] LABORATORYCLIA [id number] [address] [place] CO2 [Moles/Vol] 25 mmol/L Normal 22-30 [facility] Comment on above: Order Comment: Speci men Type: BLOOD SPECIMENOrdering Facility: [facility] Address: [address] [place] [address] Performed By: #### 2 777-1, , ####[facility] LABORATORYCLIA [id number] [address] OF [facility] Creatinine [Mass/Vol] 0.43 mg/dL Low 0.58-0.96 [facility] Comment on above: Order Comment: Speci men Type: BLOOD SPECIMENOrdering Facility: [facility] Address: [address] [place] [address] Performed By: #### 2 777-1, , ####[facility] LABORATORYCLIA [id number] [address] ESTIMATED GLOMERULAR FILTRATION RATE 107 mL/min/1.73m??? Normal >=60 [facility] Comment on above: Order Comment: Speci men Type: BLOOD SPECIMENOrdering Facility: [facility] Address: [address] [place] [address] Result Comment: Ameena mated Glomerular Filtration Rate [...] actual GFR. Performed By: #### 2 777-1, 85881-5, ####[facility] LABORATORYCLIA [id number] [place] [address] [place] Glucose [Mass/Vol] 180 mg/dL High 74-99 [facility] Comment on above: Order Comment: Lauren santana Type: BLOOD SPECIMENOrdering Facility: [facility] Address: [address] [place] [address] Result Comment: The [place] Diabetes Association (ADA) provides guidance for cutoff [...] Standards of Medical Care in Diabetes 2016, [place] [employer]. Diabetes Care. 2016.39(Suppl 1). Performed By: #### 2 777-1, , ####[facility] LABORATORYCLIA [id number] [place] [address] [place] Potassium [Moles/Vol] 3.7 mmol/L Normal 3.7-5.1 [facility] Comment on above: Order Comment: Lauren santana Type: BLOOD SPECIMENOrdering Facility: [facility] Address: [address] [place] [address] Performed By: #### 2 777-1, , ####[facility] LABORATORYCLIA [id number] [place] [address] [place] Sodium [Moles/Vol] 145 mmol/L High 136-144 [facility] Comment on above: Order Comment: Speci men Type: BLOOD SPECIMENOrdering Facility: [facility] Address: [address] [place] [address] Performed By: #### 2 777-1, 41331-6, 55208-1 ####[facility] LABORATORYCLIA [id number] [address] STATES OF [facility] Urea nitrogen [Mass/Vol] 15 mg/dL Normal 7-21 [facility] Comment on above: Order Comment: Speci men Type: BLOOD SPECIMENOrdering Facility: [facility] Address: [address] [place] [address] Performed By: #### 2 777-1, 24205-6, 07789-6 ####[facility] LABORATORYCLIA [id number] [address] STATES OF [facility] CALCIUM IONIZED Bon 10-31-19 Calcium.ionized (BldV) [Mass/Vol] 1.18 mmol/L Normal 1.08-1.30 [facility] Comment on above: Order Comment: Speci men Type: BLOOD SPECIMENOrdering Facility: [facility] Address: [address] [place] [address] Performed By: #### I CA ####[facility] LABORATORYCLIA [id number] [address] Calcium.ionized adjusted to pH 7.4 (Bld) [Moles/Vol] 1.17 mmol/L Normal 1.08-1.30 [facility] Comment on above: Order Comment: Speci men Type: BLOOD SPECIMENOrdering Facility: [facility] Address: [address] [place] [address] Performed By: #### I CA ####[facility] LABORATORYCLIA [id number] [address] [place] CASE MANAGEMon 10-30-2021 CASE MANAGEM Normal [facility] CBC panel Auto (Bld)on 10-30 Erythrocyte distribution width (RBC) [Ratio] 20.3 % High 11.5-15.0 [facility] Comment on above: Order Comment: Speci men Type: BLOOD SPECIMENOrdering Facility: [facility] Address: [address] [place] [address] Performed By: #### 5 8410-2 ####[facility] LABORATORYCLIA [id number] [address] OF [facility] Hematocrit (Bld) [Volume fraction] 29.6 % Low 36.0-46.0 [facility] Comment on above: Order Comment: Speci men Type: BLOOD SPECIMENOrdering Facility: [facility] Address: [address] [place] [address] Performed By: #### 5 8410-2 ####[facility] LABORATORYCLIA [id number] [address] OF [facility] Hemoglobin (Bld) [Mass/Vol] 9.4 g/dL Low 11.5-15.5 [facility] Comment on above: Order Comment: Speci men Type: BLOOD SPECIMENOrdering Facility: [facility] Address: [address] [place] [address] Performed By: #### 5 8410-2 ####[facility] LABORATORYCLIA [id number] [address] OF [facility] MCH (RBC) [Entitic mass] 31.4 pg Normal 26.0-34.0 [facility] Comment on above: Order Comment: Speci men Type: BLOOD SPECIMENOrdering Facility: [facility] Address: [address] [place] [address] Performed By: #### 5 8410-2 ####[facility] LABORATORYCLIA [id number] [address] [place] MCHC (RBC) [Mass/Vol] 31.8 g/dL Normal 30.5-36.0 [facility] Comment on above: Order Comment: Speci men Type: BLOOD SPECIMENOrdering Facility: [facility] Address: [address] [place] [address] Performed By: #### 5 8410-2 ####[facility] LABORATORYCLIA [id number] [address] OF [facility] MCV (RBC) [Entitic vol] 99.0 fL Normal 80.0-100.0 [facility] Comment on above: Order Comment: Speci men Type: BLOOD SPECIMENOrdering Facility: [facility] Address: [address] [place] [address] Performed By: #### 5 8410-2 ####[facility] LABORATORYCLIA [id number] [address] Nucleated RBC (Bld) [#/Vol] 10*3/uL Normal <0.01 [facility] Comment on above: Order Comment: Speci men Type: BLOOD SPECIMENOrdering Facility: [facility] Address: [address] [place] [address] Performed By: #### 5 8410-2 ####[facility] LABORATORYCLIA [id number] [address] Platelet mean volume (Bld) [Entitic vol] 9.6 fL Normal 9.0-12.7 [facility] Comment on above: Order Comment: Speci men Type: BLOOD SPECIMENOrdering Facility: [facility] Address: [address] [place] [address] Performed By: #### 5 8410-2 ####[facility] LABORATORYCLIA [id number] [address] Platelets (Bld) [#/Vol] 206 10*3/uL Normal 150-400 [facility] Comment on above: Order Comment: Speci men Type: BLOOD SPECIMENOrdering Facility: [facility] Address: [address] [place] [address] Performed By: #### 5 8410-2 ####[facility] LABORATORYCLIA [id number] [address] RBC (Bld) [#/Vol] 2.99 10*6/uL Low 3.90-5.20 [facility] Comment on above: Order Comment: Speci men Type: BLOOD SPECIMENOrdering Facility: [facility] Address: [address] [place] [address] Performed By: #### 5 8410-2 ####[facility] LABORATORYCLIA [id number] [address] WBC (Bld) [#/Vol] 8.78 10*3/uL Normal 3.70-11.00 [facility] Comment on above: Order Comment: Speci men Type: BLOOD SPECIMENOrdering Facility: [facility] Address: [address] [place] [address] Performed By: #### 5 8410-2 ####[facility] LABORATORYCLIA [id number] [address] OF [facility] CONSULT PROGon 10-30-2021 CONSULT PROG Normal [facility] CT BRAIN WO IVCONon 10-31-[address] BRAIN WO IVCON Normal [facility] Magnesium SerPl-mCncon 10-30 Magnesium [Mass/Vol] 2.1 mg/dL Normal 1.7-2.3 [facility] Comment on above: Order Comment: Speci men Type: BLOOD SPECIMENOrdering Facility: [facility] Address: [address] [place] [address] Performed By: #### 2 777-1, , ####[facility] LABORATORYCLIA [id number] [address] NURSING PROGon 10-30-2021 NURSING PROG Normal [facility] NURSING PROG Normal [facility] NURSING PROG Normal [facility] NUTRITIONon 10-30-2021 NUTRITION Normal [facility] Phosphate SerPl-mCncon 10-30 Phosphate [Mass/Vol] 2.5 mg/dL Low 2.7-4.8 [facility] Comment on above: Order Comment: Speci men Type: BLOOD SPECIMENOrdering Facility: [facility] Address: [address] [place] [address] Performed By: #### 2 777-1, 88034-8, ####[facility] LABORATORYCLIA [id number] [place] [address] [place] XR CHEST 1V FRONTALon 2021 XR CHEST 1V FRONTAL Normal [facility] ALLIED HEALTHon 10-29-2021 ALLIED HEALTH Normal [facility] ALLIED HEALTH Normal [facility] ARTERIAL BLOOD GASESon 10-29 BASE DEFICIT, ARTERIAL -2 mmol/L Normal -2-0 [facility] Comment on above: Order Comment: Speci men Type: ARTERIAL BLOOD SPECIMENOrdering Facility: [facility] Address: [address] [place] [address] Performed By: #### A LLBG ####[facility] LABORATORYCLIA [id number] [address] STATES [facility] Body temperature 97.7 [degF] Normal [facility] Comment on above: Order Comment: Speci men Type: ARTERIAL BLOOD SPECIMENOrdering Facility: [facility] Address: [address] [place] [address] Performed By: #### A LLBG ####[facility] LABORATORYCLIA [id number] [place] [address] [place] CALCIUM IONIZED, PH CORRECTED 1.11 mmol/L Normal 1.08-1.30 [facility] Comment on above: Order Comment: Speci men Type: ARTERIAL BLOOD SPECIMENOrdering Facility: [facility] Address: [address] [place] [address] Performed By: #### A LLBG ####[facility] LABORATORYCLIA [id number] [place] [address] [place] Calcium.ionized (BldV) [Mass/Vol] 1.11 mmol/L Normal 1.08-1.30 [facility] Comment on above: Order Comment: Speci men Type: ARTERIAL BLOOD SPECIMENOrdering Facility: [facility] Address: [address] [place] [address] Performed By: #### A LLBG ####[facility] LABORATORYCLIA [id number] [place] [address] [place] Carboxyhemoglobin (BldA) [Mass fraction] 1.4 % Normal 0.0-2.0 [facility] Comment on above: Order Comment: Speci men Type: ARTERIAL BLOOD SPECIMENOrdering Facility: [facility] Address: [address] [place] [address] Result Comment: Carb oxyhemoglobin Reference Range for Smokers: 2.0-8.0% Performed By: #### A LLBG ####[facility]ORATORYCLIA [id number] [address] CO2 (Bld) [Partial pressure] 35 mm Hg Low 36-46 [facility] Comment on above: Order Comment: Speci men Type: ARTERIAL BLOOD SPECIMENOrdering Facility: [facility] Address: [address] [place] [address] Performed By: #### A LLBG ####[facility] LABORATORYCLIA [id number] [address] [place] CO2 [Moles/Vol] 20 mmol/L Low 22-28 [facility] Comment on above: Order Comment: Speci men Type: ARTERIAL BLOOD SPECIMENOrdering Facility: [facility] Address: [address] [place] [address] Performed By: #### A LLBG ####[facility]ORATORYCLIA [id number] [address] [place] CO2 adjusted to patient's actual temperature (Bld) [Partial pressure] 34 mmHg Low 36-46 [facility] Comment on above: Order Comment: Speci men Type: ARTERIAL BLOOD SPECIMENOrdering Facility: [facility] Address: [address] [place] [address] Performed By: #### A LLBG ####[facility]ORATORYCLIA [id number] [address] [place] Glucose [Mass/Vol] 157 mg/dL High 60-105 [facility] Comment on above: Order Comment: Speci men Type: ARTERIAL BLOOD SPECIMENOrdering Facility: [facility] Address: [address] [place] [address] Performed By: #### A LLBG ####[facility]ORATORYCLIA [id number] [address] [place] HCO3 (Bld) [Moles/Vol] 22 mmol/L Normal 22-26 [facility] Comment on above: Order Comment: Speci men Type: ARTERIAL BLOOD SPECIMENOrdering Facility: [facility] Address: [address] [place] [address] Performed By: #### A LLBG ####[facility] LABORATORYCLIA [id number] [address] [place] Hematocrit (Bld) [Volume fraction] 29.8 % Low 36.0-46.0 [facility] Comment on above: Order Comment: Speci men Type: ARTERIAL BLOOD SPECIMENOrdering Facility: [facility] Address: [address] [place] [address] Performed By: #### A LLBG ####[facility] LABORATORYCLIA [id number] [address] Hemoglobin (Bld) [Mass/Vol] 9.6 g/dL Low 11.5-15.5 [facility] Comment on above: Order Comment: Speci men Type: ARTERIAL BLOOD SPECIMENOrdering Facility: [facility] Address: [address] [place] [address] Performed By: #### A LLBG ####[facility] LABORATORYCLIA [id number] [address] [place] Methemoglobin (Bld) [Mass fraction] % Normal 0.0-1.5 [facility] Comment on above: Order Comment: Speci men Type: ARTERIAL BLOOD SPECIMENOrdering Facility: [facility] Address: [address] [place] [address] Performed By: #### A LLBG ####[facility]ORATORYCLIA [id number] [address] [place] O2 THERAPY Ventilator Normal [facility] Comment on above: Order Comment: Speci men Type: ARTERIAL BLOOD SPECIMENOrdering Facility: [facility] Address: [address] [address] Performed By: #### A LLBG ####[facility] LABORATORYCLIA [id number] [address] Oxygen (Bld) [Partial pressure] 112 mm Hg High 85-95 [facility] Comment on above: Order Comment: Speci men Type: ARTERIAL BLOOD SPECIMENOrdering Facility: [facility] Address: [address] [place] [address] Performed By: #### A LLBG ####[facility] LABORATORYCLIA [id number] [address] Oxygen adjusted to patient's actual temperature (Bld) [Partial pressure] 109 mmHg High 85-95 [facility] Comment on above: Order Comment: Speci men Type: ARTERIAL BLOOD SPECIMENOrdering Facility: [facility] Address: [address] [place] [address] Performed By: #### A LLBG ####[facility] LABORATORYCLIA [id number] [address] [place] OXYGEN SATURATION, ARTERIAL 99 % High 95-98 [facility] Comment on above: Order Comment: Speci men Type: ARTERIAL BLOOD SPECIMENOrdering Facility: [facility] Address: [address] [place] [address] Performed By: #### A LLBG ####[facility] LABORATORYCLIA [id number] [address] [place] Oxyhemoglobin (BldA) [Mass fraction] 97 % Normal 95-98 [facility] Comment on above: Order Comment: Speci men Type: ARTERIAL BLOOD SPECIMENOrdering Facility: [facility] Address: [address] [place] [address] Performed By: #### A LLBG ####[facility]ORATORYCLIA [id number] [address] [place] pH (Bld) 7.40 [pH] Normal 7.35-7.45 [facility] Comment on above: Order Comment: Speci men Type: ARTERIAL BLOOD SPECIMENOrdering Facility: [facility] Address: [address] [place] [address] Performed By: #### A LLBG ####[facility] LABORATORYCLIA [id number] [address] pH adjusted to patient's actual temperature (Bld) 7.41 Normal 7.35-7.45 [facility] Comment on above: Order Comment: Speci men Type: ARTERIAL BLOOD SPECIMENOrdering Facility: [facility] Address: [address] [place] [address] Performed By: #### A LLBG ####[facility]ORATORYCLIA [id number] [address] [place] Potassium [Moles/Vol] 3.3 mmol/L Low 3.5-5.0 [facility] Comment on above: Order Comment: Speci men Type: ARTERIAL BLOOD SPECIMENOrdering Facility: [facility] Address: [address] [place] [address] Performed By: #### A LLBG ####[facility] LABORATORYCLIA [id number] [address] [place] [facility] Sodium [Moles/Vol] 144 mmol/L Normal 136-144 [facility] Comment on above: Order Comment: Speci men Type: ARTERIAL BLOOD SPECIMENOrdering Facility: [facility] Address: [address] [place] [address] Performed By: #### A LLBG ####[facility] LABORATORYCLIA [id number] [place] [address] [place] BASE DEFICIT, ARTERIAL -3 mmol/L Low -2-0 [facility] Comment on above: Order Comment: Speci men Type: ARTERIAL BLOOD SPECIMENOrdering Facility: [facility] Address: [address] [place] [address] Performed By: #### A LLBG ####[facility]ORATORYCLIA [id number] [address] [place] Body temperature 98.06 [degF] Normal [facility] Comment on above: Order Comment: Speci men Type: ARTERIAL BLOOD SPECIMENOrdering Facility: [facility] Address: [address] [place] [address] Performed By: #### A LLBG ####[facility] LABORATORYCLIA [id number] [address] STATES OF [facility] CALCIUM IONIZED, PH CORRECTED 1.13 mmol/L Normal 1.08-1.30 [facility] Comment on above: Order Comment: Speci men Type: ARTERIAL BLOOD SPECIMENOrdering Facility: [facility] Address: [address] [place] [address] Performed By: #### A LLBG ####[facility] LABORATORYCLIA [id number] [address] Calcium.ionized (BldV) [Mass/Vol] 1.12 mmol/L Normal 1.08-1.30 [facility] Comment on above: Order Comment: Speci men Type: ARTERIAL BLOOD SPECIMENOrdering Facility: [facility] Address: [address] [place] [address] Performed By: #### A LLBG ####[facility] LABORATORYCLIA [id number] [address] OF [facility] Carboxyhemoglobin (BldA) [Mass fraction] 1.5 % Normal 0.0-2.0 [facility] Comment on above: Order Comment: Speci men Type: ARTERIAL BLOOD SPECIMENOrdering Facility: [facility] Address: [address] [place] [address] Result Comment: Carb oxyhemoglobin Reference Range for Smokers: 2.0-8.0% Performed By: #### A LLBG ####[facility] LABORATORYCLIA [id number] [address] OF [facility] CO2 (Bld) [Partial pressure] 33 mm Hg Low 36-46 [facility] Comment on above: Order Comment: Speci men Type: ARTERIAL BLOOD SPECIMENOrdering Facility: [facility] Address: [address] [place] [address] Performed By: #### A LLBG ####[facility] LABORATORYCLIA [id number] [address] STATES OF [facility] CO2 [Moles/Vol] 19 mmol/L Low 22-28 [facility] Comment on above: Order Comment: Speci men Type: ARTERIAL BLOOD SPECIMENOrdering Facility: [facility] Address: [address] [place] [address] Performed By: #### A LLBG ####[facility] LABORATORYCLIA [id number] [address] OF [place] CO2 adjusted to patient's actual temperature (Bld) [Partial pressure] 33 mmHg Low 36-46 [facility] Comment on above: Order Comment: Speci men Type: ARTERIAL BLOOD SPECIMENOrdering Facility: [facility] Address: [address] [place] [address] Performed By: #### A LLBG ####[facility] LABORATORYCLIA [id number] [address] [place] Glucose [Mass/Vol] 149 mg/dL High 60-105 [facility] Comment on above: Order Comment: Speci men Type: ARTERIAL BLOOD SPECIMENOrdering Facility: [facility] Address: [address] [place] [address] Performed By: #### A LLBG ####[facility] LABORATORYCLIA [id number] [address] [place] HCO3 (Bld) [Moles/Vol] 21 mmol/L Low 22-26 [facility] Comment on above: Order Comment: Speci men Type: ARTERIAL BLOOD SPECIMENOrdering Facility: [facility] Address: [address] [place] [address] Performed By: #### A LLBG ####[facility] LABORATORYCLIA [id number] [address] [place] Hematocrit (Bld) [Volume fraction] 30.4 % Low 36.0-46.0 [facility] Comment on above: Order Comment: Speci men Type: ARTERIAL BLOOD SPECIMENOrdering Facility: [facility] Address: [address] [address] Performed By: #### A LLBG ####[facility] LABORATORYCLIA [id number] [address] [place] Hemoglobin (Bld) [Mass/Vol] 9.8 g/dL Low 11.5-15.5 [facility] Comment on above: Order Comment: Speci men Type: ARTERIAL BLOOD SPECIMENOrdering Facility: [facility] Address: [address] [place] [address] Performed By: #### A LLBG ####[facility] LABORATORYCLIA [id number] [address] [place] Methemoglobin (Bld) [Mass fraction] 1.1 % Normal 0.0-1.5 [facility] Comment on above: Order Comment: Speci men Type: ARTERIAL BLOOD SPECIMENOrdering Facility: [facility] Address: [address] [place] [address] Performed By: #### A LLBG ####[facility] LABORATORYCLIA [id number] [address] [place] O2 THERAPY Ventilator Normal [facility] Comment on above: Order Comment: Speci men Type: ARTERIAL BLOOD SPECIMENOrdering Facility: [facility] Address: [address] [place] [address] Performed By: #### A LLBG ####[facility] LABORATORYCLIA [id number] [address] [place] Oxygen (Bld) [Partial pressure] 107 mm Hg High 85-95 [facility] Comment on above: Order Comment: Speci men Type: ARTERIAL BLOOD SPECIMENOrdering Facility: [facility] Address: [address] [place] [address] Performed By: #### A LLBG ####[facility] LABORATORYCLIA [id number] [address] [place] Oxygen adjusted to patient's actual temperature (Bld) [Partial pressure] 105 mmHg High 85-95 [facility] Comment on above: Order Comment: Speci men Type: ARTERIAL BLOOD SPECIMENOrdering Facility: [facility] Address: [address] [place] [address] Performed By: #### A LLBG ####[facility] LABORATORYCLIA [id number] [address] OXYGEN SATURATION, ARTERIAL 99 % High 95-98 [facility] Comment on above: Order Comment: Speci men Type: ARTERIAL BLOOD SPECIMENOrdering Facility: [facility] Address: [address] [place] [address] Performed By: #### A LLBG ####[facility] LABORATORYCLIA [id number] [address] Oxyhemoglobin (BldA) [Mass fraction] 96 % Normal 95-98 [facility] Comment on above: Order Comment: Speci men Type: ARTERIAL BLOOD SPECIMENOrdering Facility: [facility] Address: [address] [place] [address] Performed By: #### A LLBG ####[facility] LABORATORYCLIA [id number] [place] [address] [place] pH (Bld) 7.41 [pH] Normal 7.35-7.45 [facility] Comment on above: Order Comment: Speci men Type: ARTERIAL BLOOD SPECIMENOrdering Facility: [facility] Address: [address] [place] [address] Performed By: #### A LLBG ####[facility] LABORATORYCLIA [id number] [address] pH adjusted to patient's actual temperature (Bld) 7.42 Normal 7.35-7.45 [facility] Comment on above: Order Comment: Speci men Type: ARTERIAL BLOOD SPECIMENOrdering Facility: [facility] Address: [address] [place] [address] Performed By: #### A LLBG ####[facility] LABORATORYCLIA [id number] [address] [place] Potassium [Moles/Vol] 3.4 mmol/L Low 3.5-5.0 [facility] Comment on above: Order Comment: Speci men Type: ARTERIAL BLOOD SPECIMENOrdering Facility: [facility] Address: [address] [place] [address] Performed By: #### A LLBG ####[facility] LABORATORYCLIA [id number] [address] [place] Sodium [Moles/Vol] 143 mmol/L Normal 136-144 [facility] Comment on above: Order Comment: Speci men Type: ARTERIAL BLOOD SPECIMENOrdering Facility: [facility] Address: [address] [place] [address] Performed By: #### A LLBG ####[facility] LABORATORYCLIA [id number] [address] [place] CASE MGT INIT ASSESon 2021 CASE MGT INIT ASSES Normal [facility] CBC panel Auto (Bld)on 10-29 Erythrocyte distribution width (RBC) [Ratio] 20.2 % High 11.5-15.0 [facility] Comment on above: Order Comment: Speci men Type: BLOOD SPECIMENOrdering Facility: [facility] Address: [address] [place] [address] Performed By: #### 5 8410-2 ####[facility] LABORATORYCLIA [id number] [address] [place] Hematocrit (Bld) [Volume fraction] 30.9 % Low 36.0-46.0 [facility] Comment on above: Order Comment: Speci men Type: BLOOD SPECIMENOrdering Facility: [facility] Address: [address] [place] [address] Performed By: #### 5 8410-2 ####[facility] LABORATORYCLIA [id number] [address] [place] Hemoglobin (Bld) [Mass/Vol] 10.0 g/dL Low 11.5-15.5 [facility] Comment on above: Order Comment: Speci men Type: BLOOD SPECIMENOrdering Facility: [facility] Address: [address] [place] [address] Performed By: #### 5 8410-2 ####[facility] LABORATORYCLIA [id number] [address] MCH (RBC) [Entitic mass] 31.4 pg Normal 26.0-34.0 [facility] Comment on above: Order Comment: Speci men Type: BLOOD SPECIMENOrdering Facility: [facility] Address: [address] [place] [address] Performed By: #### 5 8410-2 ####[facility] LABORATORYCLIA [id number] [address] MCHC (RBC) [Mass/Vol] 32.4 g/dL Normal 30.5-36.0 [facility] Comment on above: Order Comment: Speci men Type: BLOOD SPECIMENOrdering Facility: [facility] Address: [address] [place] [address] Performed By: #### 5 8410-2 ####[facility] LABORATORYCLIA [id number] [address] MCV (RBC) [Entitic vol] 97.2 fL Normal 80.0-100.0 [facility] Comment on above: Order Comment: Speci men Type: BLOOD SPECIMENOrdering Facility: [facility] Address: [address] [place] [address] Performed By: #### 5 8410-2 ####[facility] LABORATORYCLIA [id number] [address] Nucleated RBC (Bld) [#/Vol] 10*3/uL Normal <0.01 [facility] Comment on above: Order Comment: Speci men Type: BLOOD SPECIMENOrdering Facility: [facility] Address: [address] [place] [address] Performed By: #### 5 8410-2 ####[facility] LABORATORYCLIA [id number] [address] Platelet mean volume (Bld) [Entitic vol] 9.2 fL Normal 9.0-12.7 [facility] Comment on above: Order Comment: Speci men Type: BLOOD SPECIMENOrdering Facility: [facility] Address: [address] [place] [address] Performed By: #### 5 8410-2 ####[facility] LABORATORYCLIA [id number] [address] [place] Platelets (Bld) [#/Vol] 219 10*3/uL Normal 150-400 [facility] Comment on above: Order Comment: Speci men Type: BLOOD SPECIMENOrdering Facility: [facility] Address: [address] [place] [address] Performed By: #### 5 8410-2 ####[facility] LABORATORYCLIA [id number] [address] [place] RBC (Bld) [#/Vol] 3.18 10*6/uL Low 3.90-5.20 [facility] Comment on above: Order Comment: Speci men Type: BLOOD SPECIMENOrdering Facility: [facility] Address: [address] [place] [address] Performed By: #### 5 8410-2 ####[facility] LABORATORYCLIA [id number] [address] [place] WBC (Bld) [#/Vol] 8.51 10*3/uL Normal 3.70-11.00 [facility] Comment on above: Order Comment: Speci men Type: BLOOD SPECIMENOrdering Facility: [facility] Address: [address] [place] [address] Performed By: #### 5 8410-2 ####[facility] LABORATORYCLIA [id number] [address] Erythrocyte distribution width (RBC) [Ratio] 19.4 % High 11.5-15.0 [facility] Comment on above: Order Comment: Speci men Type: BLOOD SPECIMENOrdering Facility: [facility] Address: [address] [place] [address] Performed By: #### 5 8410-2 ####[facility] LABORATORYCLIA [id number] [address] Hematocrit (Bld) [Volume fraction] 29.2 % Low 36.0-46.0 [facility] Comment on above: Order Comment: Speci men Type: BLOOD SPECIMENOrdering Facility: [facility] Address: [address] [place] [address] Performed By: #### 5 8410-2 ####[facility] LABORATORYCLIA [id number] [address] STATES OF [facility] Hemoglobin (Bld) [Mass/Vol] 9.5 g/dL Low 11.5-15.5 [facility] Comment on above: Order Comment: Speci men Type: BLOOD SPECIMENOrdering Facility: [facility] Address: [address] [place] [address] Performed By: #### 5 8410-2 ####[facility] LABORATORYCLIA [id number] [address] STATES OF [facility] MCH (RBC) [Entitic mass] 31.6 pg Normal 26.0-34.0 [facility] Comment on above: Order Comment: Speci men Type: BLOOD SPECIMENOrdering Facility: [facility] Address: [address] [place] [address] Performed By: #### 5 8410-2 ####[facility] LABORATORYCLIA [id number] [address] [place] MCHC (RBC) [Mass/Vol] 32.5 g/dL Normal 30.5-36.0 [facility] Comment on above: Order Comment: Speci men Type: BLOOD SPECIMENOrdering Facility: [facility] Address: [address] [place] [address] Performed By: #### 5 8410-2 ####[facility] LABORATORYCLIA [id number] [address] MCV (RBC) [Entitic vol] 97.0 fL Normal 80.0-100.0 [facility] Comment on above: Order Comment: Speci men Type: BLOOD SPECIMENOrdering Facility: [facility] Address: [address] [address] Performed By: #### 5 8410-2 ####[facility] LABORATORYCLIA [id number] [address] [place] Nucleated RBC (Bld) [#/Vol] 10*3/uL Normal <0.01 [facility] Comment on above: Order Comment: Speci men Type: BLOOD SPECIMENOrdering Facility: [facility] Address: [address] [place] [address] Performed By: #### 5 8410-2 ####[facility] LABORATORYCLIA [id number] [address] [place] Platelet mean volume (Bld) [Entitic vol] 9.0 fL Normal 9.0-12.7 [facility] Comment on above: Order Comment: Speci men Type: BLOOD SPECIMENOrdering Facility: [facility] Address: [address] [place] [address] Performed By: #### 5 8410-2 ####[facility] LABORATORYCLIA [id number] [address] [place] Platelets (Bld) [#/Vol] 200 10*3/uL Normal 150-400 [facility] Comment on above: Order Comment: Speci men Type: BLOOD SPECIMENOrdering Facility: [facility] Address: [address] Performed By: #### 5 8410-2 ####[facility] LABORATORYCLIA [id number] [address] [place] RBC (Bld) [#/Vol] 3.01 10*6/uL Low 3.90-5.20 [facility] Comment on above: Order Comment: Speci men Type: BLOOD SPECIMENOrdering Facility: [facility] Address: [address] [place] [address] Performed By: #### 5 8410-2 ####[facility] LABORATORYCLIA [id number] [address] OF [facility] WBC (Bld) [#/Vol] 8.37 10*3/uL Normal 3.70-11.00 [facility] Comment on above: Order Comment: Speci men Type: BLOOD SPECIMENOrdering Facility: [facility] Address: [address] [place] [address] Performed By: #### 5 8410-2 ####[facility] LABORATORYCLIA [id number] [address] OF [facility] CONSULT PROGon 10-29-2021 CONSULT PROG Normal [facility] Comprehensive metabolic 2000 panelon 10-29-2021 Albumin [Mass/Vol] 3.0 g/dL Low 3.9-4.9 [facility] Comment on above: Order Comment: Speci men Type: BLOOD SPECIMENOrdering Facility: [facility] Address: [address] [place] [address] Performed By: #### 1 9123-9, 77399-8, 2777-1 ####[facility] LABORATORYCLIA [id number] [address] [place] [facility] ALP [Catalytic activity/Vol] 57 U/L Normal 34-123 [facility] Comment on above: Order Comment: Speci men Type: BLOOD SPECIMENOrdering Facility: [facility] Address: [address] [place] [address] Performed By: #### 1 9123-9, 59400-5, 2777-1 ####[facility] LABORATORYCLIA [id number] [address] ALT With P-5'-P [Catalytic activity/Vol] 8 U/L Normal 7-38 [facility] Comment on above: Order Comment: Speci men Type: BLOOD SPECIMENOrdering Facility: [facility] Address: [address] [place] [address] Performed By: #### 1 9123-9, 83445-8, 2776-08 ####[facility] LABORATORYCLIA [id number] [place] [address] [place] Anion gap [Moles/Vol] 9 mmol/L Normal 9-18 [facility] Comment on above: Order Comment: Speci men Type: BLOOD SPECIMENOrdering Facility: [facility] Address: [address] [place] [address] Performed By: #### 1 9123-9, 39096-7, 2776- ####[facility] LABORATORYCLIA [id number] [place] [address] [place] AST With P-5'-P [Catalytic activity/Vol] 10 U/L Low 13-35 [facility] Comment on above: Order Comment: Speci men Type: BLOOD SPECIMENOrdering Facility: [facility] Address: [address] [place] [address] Performed By: #### 1 9123-9, , 2776-08 ####[facility] [id number] [address] STATES OF [facility] Bilirubin [Mass/Vol] 0.2 mg/dL Normal 0.2-1.3 [facility] Comment on above: Order Comment: Speci men Type: BLOOD SPECIMENOrdering Facility: [facility] Address: [address] [place] [address] Performed By: #### 1 9123-9, 83538-6, 2776-08 ####[facility] LABORATORYCLIA [id number] [address] STATES OF [facility] Calcium [Mass/Vol] 7.8 mg/dL Low 8.5-10.2 [facility] Comment on above: Order Comment: Speci men Type: BLOOD SPECIMENOrdering Facility: [facility] Address: [address] [place] [address] Performed By: #### 1 9123-9, 62159-0, 277- ####[facility] LABORATORYCLIA [id number] [address] [place] Chloride [Moles/Vol] 111 mmol/L High 97-105 [facility] Comment on above: Order Comment: Lauren santana Type: BLOOD SPECIMENOrdering Facility: [facility] Address: [address] [place] [address] Performed By: #### 1 9123-9, 89644-1, 2777-1 ####[facility] LABORATORYCLIA [id number] [address] OF [facility] CO2 [Moles/Vol] 22 mmol/L Normal 22-30 [facility] Comment on above: Order Comment: Speci men Type: BLOOD SPECIMENOrdering Facility: [facility] Address: [address] [place] [address] Performed By: #### 1 9123-9, 61553-0, 2777- ####[facility] LABORATORYCLIA [id number] [address] Creatinine [Mass/Vol] 0.41 mg/dL Low 0.58-0.96 [facility] Comment on above: Order Comment: Speci men Type: BLOOD SPECIMENOrdering Facility: [facility] Address: [address] [place] [address] Performed By: #### 1 9123-9, 90709-5, 2777- ####[facility] LABORATORYCLIA [id number] [address] ESTIMATED GLOMERULAR FILTRATION RATE 109 mL/min/1.73m??? Normal >=60 [facility] Comment on above: Order Comment: Speci men Type: BLOOD SPECIMENOrdering Facility: [facility] Address: [address] [place] [address] Result Comment: Ameena mated Glomerular Filtration Rate [...] actual GFR. Performed By: #### 1 9123-9, 59008-1, 2777- ####[facility] LABORATORYCLIA [id number] [place] [address] [place] Glucose [Mass/Vol] 165 mg/dL High 74-99 [facility] Comment on above: Order Comment: Speci men Type: BLOOD SPECIMENOrdering Facility: [facility] Address: [address] [place] [address] Result Comment: The [place] [employer] (ADA) provides guidance for cutoff [...] Standards of Medical Care in Diabetes 2016, [employer]. Diabetes Care. 2016.39(Suppl 1). Performed By: #### 1 9123-9, 03968-9, 2777 ####[facility] LABORATORYCLIA [id number] [place] [address] [place] Potassium [Moles/Vol] 3.5 mmol/L Low 3.7-5.1 [facility] Comment on above: Order Comment: Speci men Type: BLOOD SPECIMENOrdering Facility: [facility] Address: [address] [address] Performed By: #### 1 9123-9, 63140-8, 2777- ####[facility] LABORATORYCLIA [id number] [place] [address] [place] Protein [Mass/Vol] 5.2 g/dL Low 6.3-8.0 [facility] Comment on above: Order Comment: Speci men Type: BLOOD SPECIMENOrdering Facility: [facility] Address: [address] [address] Performed By: #### 1 9123-9, 28801-3, 2777-1 ####[facility] LABORATORYCLIA [id number] [place] [address] [place] Sodium [Moles/Vol] 142 mmol/L Normal 136-144 [facility] Comment on above: Order Comment: Speci men Type: BLOOD SPECIMENOrdering Facility: [facility] Address: [address] [place] [address] Performed By: #### 1 9123-9, 27710-6, 277- ####[facility] LABORATORYCLIA [id number] [place] [address] [place] Urea nitrogen [Mass/Vol] 8 mg/dL Normal 7-21 [facility] Comment on above: Order Comment: Speci men Type: BLOOD SPECIMENOrdering Facility: [facility] Address: [address] [place] [address] Performed By: #### 1 9123-9, 69004-0, 27702-15 ####[facility] LABORATORYCLIA [id number] [place] [address] [place] Lactate (Bld) [Moles/Vol]on 10-29-2021 Lactate [Moles/Vol] 1.3 mmol/L Normal 0.5-2.2 [facility] Comment on above: Order Comment: Speci men Type: BLOOD SPECIMENOrdering Facility: [facility] Address: [address] [place] [address] Performed By: #### 3 2693-4 ####[facility] LABORATORYCLIA [id number] [place] [address] [place] Magnesium SerPl-mCncon 10-29 Magnesium [Mass/Vol] 2.4 mg/dL High 1.7-2.3 [facility] Comment on above: Order Comment: Speci men Type: BLOOD SPECIMENOrdering Facility: [facility] Address: [address] [place] [address] Performed By: #### 1 9123-9, 52986-5, 2777- ####[facility] LABORATORYCLIA [id number] [address] [place] NURSING PROGon 10-29-2021 NURSING PROG Normal [facility] NURSING PROG Normal [facility] Phosphate SerPl-mCncon 10-29 Phosphate [Mass/Vol] 2.4 mg/dL Low 2.7-4.8 [facility] Comment on above: Order Comment: Speci men Type: BLOOD SPECIMENOrdering Facility: [facility] Address: [address] [place] [address] Performed By: #### 1 9123-9, 68020-1, 2777-1 ####[facility] LABORATORYCLIA [id number] [address] OF [facility] VITAMIN D 25 HYDROXYon 10-29 25-hydroxyvitamin D3 [Mass/Vol] 21.4 ng/mL Low 30.0-100.0 [facility] Comment on above: Order Comment: Speci men Type: BLOOD SPECIMENOrdering Facility: [facility] Address: [address] [place] [address] Result Comment: Clas sification of 25 [place] Vitamin D status:Deficiency: <= 20.0 ng/ml.Insufficientcy: 21.0-29.0 ng/ml.Sufficiency: >= 30.0 ng/ml. Performed By: #### V ITD ####[facility] LABORATORYCLIA [id number] [address] OF [facility] XR CHEST 1V FRONTALon 2021 XR CHEST 1V FRONTAL Normal [facility] XR CHEST 1V FRONTAL Normal [facility] ALLIED HEALTHon 10-28-2021 ALLIED HEALTH Normal [facility] ALLIED HEALTH Normal [facility] ALLIED HEALTH Normal [facility] ALLIED HEALTH Normal [facility] ANES POSTPROC EVALon 022 ANES POSTPROC EVAL Normal [facility] ANES POSTPROC EVAL Normal [facility] ANES PRE-OPon 10-28-2021 ANES PRE-OP Normal [facility] ANES PRE-OP Normal [facility] ARTERIAL BLOOD GASESon 10-28 BASE DEFICIT, ARTERIAL -3 mmol/L Low -2-0 [facility] Comment on above: Order Comment: Speci men Type: ARTERIAL BLOOD SPECIMENOrdering Facility: [facility] Address: [address] [place] [address] Performed By: #### A LLBG ####[facility] LABORATORYCLIA [id number] [address] [place] Body temperature 98.6 [degF] Normal [facility] Comment on above: Order Comment: Speci men Type: ARTERIAL BLOOD SPECIMENOrdering Facility: [facility] Address: [address] [place] [address] Performed By: #### A LLBG ####[facility] LABORATORYCLIA [id number] [place] [address] [place] CALCIUM IONIZED, PH CORRECTED 1.13 mmol/L Normal 1.08-1.30 [facility] Comment on above: Order Comment: Speci men Type: ARTERIAL BLOOD SPECIMENOrdering Facility: [facility] Address: [address] [place] [address] Performed By: #### A LLBG ####[facility] LABORATORYCLIA [id number] [address] [place] Calcium.ionized (BldV) [Mass/Vol] 1.13 mmol/L Normal 1.08-1.30 [facility] Comment on above: Order Comment: Speci men Type: ARTERIAL BLOOD SPECIMENOrdering Facility: [facility] Address: [address] [place] [address] Performed By: #### A LLBG ####[facility] LABORATORYCLIA [id number] [address] [place] Carboxyhemoglobin (BldA) [Mass fraction] 1.5 % Normal 0.0-2.0 [facility] Comment on above: Order Comment: Speci men Type: ARTERIAL BLOOD SPECIMENOrdering Facility: [facility] Address: [address] [place] [address] Result Comment: Carb oxyhemoglobin Reference Range for Smokers: 2.0-8.0% Performed By: #### A LLBG ####[facility] LABORATORYCLIA [id number] [address] [place] CO2 (Bld) [Partial pressure] 34 mm Hg Low 36-46 [facility] Comment on above: Order Comment: Speci men Type: ARTERIAL BLOOD SPECIMENOrdering Facility: [facility] Address: [address] [place] [address] Performed By: #### A LLBG ####[facility] LABORATORYCLIA [id number] [address] [place] CO2 [Moles/Vol] 19 mmol/L Low 22-28 [facility] Comment on above: Order Comment: Speci men Type: ARTERIAL BLOOD SPECIMENOrdering Facility: [facility] Address: [address] [place] [address] Performed By: #### A LLBG ####[facility] LABORATORYCLIA [id number] [address] [place] Glucose [Mass/Vol] 155 mg/dL High 60-105 [facility] Comment on above: Order Comment: Speci men Type: ARTERIAL BLOOD SPECIMENOrdering Facility: [facility] Address: [address] [place] [address] Performed By: #### A LLBG ####[facility] LABORATORYCLIA [id number] [place] [address] [place] HCO3 (Bld) [Moles/Vol] 21 mmol/L Low 22-26 [facility] Comment on above: Order Comment: Speci men Type: ARTERIAL BLOOD SPECIMENOrdering Facility: [facility] Address: [address] [place] [address] Performed By: #### A LLBG ####[facility] LABORATORYCLIA [id number] [place] [address] [place] Hematocrit (Bld) [Volume fraction] 31.9 % Low 36.0-46.0 [facility] Comment on above: Order Comment: Speci men Type: ARTERIAL BLOOD SPECIMENOrdering Facility: [facility] Address: [address] [address] Performed By: #### A LLBG ####[facility] LABORATORYCLIA [id number] [address] OF [facility] Hemoglobin (Bld) [Mass/Vol] 10.3 g/dL Low 11.5-15.5 [facility] Comment on above: Order Comment: Speci men Type: ARTERIAL BLOOD SPECIMENOrdering Facility: [facility] Address: [address] [place] [address] Performed By: #### A LLBG ####[facility] LABORATORYCLIA [id number] [address] OF [facility] Methemoglobin (Bld) [Mass fraction] 1.1 % Normal 0.0-1.5 [facility] Comment on above: Order Comment: Speci men Type: ARTERIAL BLOOD SPECIMENOrdering Facility: [facility] Address: [address] [place] [address] Performed By: #### A LLBG ####[facility] LABORATORYCLIA [id number] [address] O2 THERAPY Ventilator Normal [facility] Comment on above: Order Comment: Speci men Type: ARTERIAL BLOOD SPECIMENOrdering Facility: [facility] Address: [address] [place] [address] Result Comment: 30% Performed By: #### A LLBG ####[facility] LABORATORYCLIA [id number] [address] [place] Oxygen (Bld) [Partial pressure] 92 mm Hg Normal 85-95 [facility] Comment on above: Order Comment: Speci men Type: ARTERIAL BLOOD SPECIMENOrdering Facility: [facility] Address: [address] [place] [address] Performed By: #### A LLBG ####[facility] LABORATORYCLIA [id number] [address] [place] OXYGEN SATURATION, ARTERIAL 98 % Normal 95-98 [facility] Comment on above: Order Comment: Speci men Type: ARTERIAL BLOOD SPECIMENOrdering Facility: [facility] Address: [address] [place] [address] Performed By: #### A LLBG ####[facility] LABORATORYCLIA [id number] [address] Oxyhemoglobin (BldA) [Mass fraction] 96 % Normal 95-98 [facility] Comment on above: Order Comment: Speci men Type: ARTERIAL BLOOD SPECIMENOrdering Facility: [facility] Address: [address] [place] [address] Performed By: #### A LLBG ####[facility] LABORATORYCLIA [id number] [address] STATES OF [facility] pH (Bld) 7.41 [pH] Normal 7.35-7.45 [facility] Comment on above: Order Comment: Speci men Type: ARTERIAL BLOOD SPECIMENOrdering Facility: [facility] Address: [address] [place] [address] Performed By: #### A LLBG ####[facility] LABORATORYCLIA [id number] [address] [place] [facility] Potassium [Moles/Vol] 3.4 mmol/L Low 3.5-5.0 [facility] Comment on above: Order Comment: Speci men Type: ARTERIAL BLOOD SPECIMENOrdering Facility: [facility] Address: [address] [place] [address] Performed By: #### A LLBG ####[facility] LABORATORYCLIA [id number] [address] [place] Sodium [Moles/Vol] 145 mmol/L High 136-144 [facility] Comment on above: Order Comment: Speci men Type: ARTERIAL BLOOD SPECIMENOrdering Facility: [facility] Address: [address] [place] [address] Performed By: #### A LLBG ####[facility] LABORATORYCLIA [id number] [place] [address] [place] BASE DEFICIT, ARTERIAL -2 mmol/L Normal -2-0 [facility] Comment on above: Order Comment: Speci men Type: ARTERIAL BLOOD SPECIMENOrdering Facility: [facility] Address: [address] [place] [address] Performed By: #### A LLBG ####[facility] LABORATORYCLIA [id number] [address] Body temperature 98.6 [degF] Normal [facility] Comment on above: Order Comment: Speci men Type: ARTERIAL BLOOD SPECIMENOrdering Facility: [facility] Address: [address] [place] [address] Performed By: #### A LLBG ####[facility] LABORATORYCLIA [id number] [address] [place] [facility] CALCIUM IONIZED, PH CORRECTED 1.04 mmol/L Low 1.08-1.30 [facility] Comment on above: Order Comment: Speci men Type: ARTERIAL BLOOD SPECIMENOrdering Facility: [facility] Address: [address] [place] [address] Performed By: #### A LLBG ####[facility] LABORATORYCLIA [id number] [address] Calcium.ionized (BldV) [Mass/Vol] 1.03 mmol/L Low 1.08-1.30 [facility] Comment on above: Order Comment: Speci men Type: ARTERIAL BLOOD SPECIMENOrdering Facility: [facility] Address: [address] [place] [address] Performed By: #### A LLBG ####[facility] LABORATORYCLIA [id number] [address] [place] Carboxyhemoglobin (BldA) [Mass fraction] 1.4 % Normal 0.0-2.0 [facility] Comment on above: Order Comment: Speci men Type: ARTERIAL BLOOD SPECIMENOrdering Facility: [facility] Address: [address] [place] [address] Result Comment: Carb oxyhemoglobin Reference Range for Smokers: 2.0-8.0% Performed By: #### A LLBG ####[facility] LABORATORYCLIA [id number] [address] [place] CO2 (Bld) [Partial pressure] 35 mm Hg Low 36-46 [facility] Comment on above: Order Comment: Speci men Type: ARTERIAL BLOOD SPECIMENOrdering Facility: [facility] Address: [address] [place] [address] Performed By: #### A LLBG ####[facility] LABORATORYCLIA [id number] [address] [place] CO2 [Moles/Vol] 20 mmol/L Low 22-28 [facility] Comment on above: Order Comment: Speci men Type: ARTERIAL BLOOD SPECIMENOrdering Facility: [facility] Address: [address] [place] [address] Performed By: #### A LLBG ####[facility] LABORATORYCLIA [id number] [address] [place] Glucose [Mass/Vol] 133 mg/dL High 60-105 [facility] Comment on above: Order Comment: Speci men Type: ARTERIAL BLOOD SPECIMENOrdering Facility: [facility] Address: [address] [place] [address] Performed By: #### A LLBG ####[facility] LABORATORYCLIA [id number] [address] [place] HCO3 (Bld) [Moles/Vol] 22 mmol/L Normal 22-26 [facility] Comment on above: Order Comment: Speci men Type: ARTERIAL BLOOD SPECIMENOrdering Facility: [facility] Address: [address] [place] [address] Performed By: #### A LLBG ####[facility] LABORATORYCLIA [id number] [address] [place] Hematocrit (Bld) [Volume fraction] 33.8 % Low 36.0-46.0 [facility] Comment on above: Order Comment: Speci men Type: ARTERIAL BLOOD SPECIMENOrdering Facility: [facility] Address: [address] [address] Performed By: #### A LLBG ####[facility] LABORATORYCLIA [id number] [address] [place] Hemoglobin (Bld) [Mass/Vol] 10.9 g/dL Low 11.5-15.5 [facility] Comment on above: Order Comment: Speci men Type: ARTERIAL BLOOD SPECIMENOrdering Facility: [facility] Address: [address] [place] [address] Performed By: #### A LLBG ####[facility] LABORATORYCLIA [id number] [address] [place] Methemoglobin (Bld) [Mass fraction] 1.1 % Normal 0.0-1.5 [facility] Comment on above: Order Comment: Speci men Type: ARTERIAL BLOOD SPECIMENOrdering Facility: [facility] Address: [address] [place] [address] Performed By: #### A LLBG ####[facility] LABORATORYCLIA [id number] [address] [place] O2 THERAPY Ventilator Normal [facility] Comment on above: Order Comment: Speci men Type: ARTERIAL BLOOD SPECIMENOrdering Facility: [facility] Address: [address] [place] [address] Performed By: #### A LLBG ####[facility] LABORATORYCLIA [id number] [address] [place] Oxygen (Bld) [Partial pressure] 76 mm Hg Low 85-95 [facility] Comment on above: Order Comment: Speci men Type: ARTERIAL BLOOD SPECIMENOrdering Facility: [facility] Address: [address] [place] [address] Performed By: #### A LLBG ####[facility] LABORATORYCLIA [id number] [address] [place] OXYGEN SATURATION, ARTERIAL 96 % Normal 95-98 [facility] Comment on above: Order Comment: Speci men Type: ARTERIAL BLOOD SPECIMENOrdering Facility: [facility] Address: [address] [place] [address] Performed By: #### A LLBG ####[facility] LABORATORYCLIA [id number] [address] [place] [facility] Oxyhemoglobin (BldA) [Mass fraction] 94 % Low 95-98 [facility] Comment on above: Order Comment: Speci men Type: ARTERIAL BLOOD SPECIMENOrdering Facility: [facility] Address: [address] [place] [address] Performed By: #### A LLBG ####[facility] LABORATORYCLIA [id number] [address] [place] pH (Bld) 7.41 [pH] Normal 7.35-7.45 [facility] Comment on above: Order Comment: Speci men Type: ARTERIAL BLOOD SPECIMENOrdering Facility: [facility] Address: [address] [place] [address] Performed By: #### A LLBG ####[facility] LABORATORYCLIA [id number] [address] [place] Potassium [Moles/Vol] 3.7 mmol/L Normal 3.5-5.0 [facility] Comment on above: Order Comment: Speci men Type: ARTERIAL BLOOD SPECIMENOrdering Facility: [facility] Address: [address] [place] [address] Performed By: #### A LLBG ####[facility] LABORATORYCLIA [id number] [address] [place] Sodium [Moles/Vol] 145 mmol/L High 136-144 [facility] Comment on above: Order Comment: Speci men Type: ARTERIAL BLOOD SPECIMENOrdering Facility: [facility] Address: [address] [place] [address] Performed By: #### A LLBG ####[facility] LABORATORYCLIA [id number] [place] [address] [place] CALCIUM IONIZED Bon 10-29-19 22 Calcium.ionized (BldV) [Mass/Vol] 1.02 mmol/L Low 1.08-1.30 [facility] Comment on above: Order Comment: Speci men Type: BLOOD SPECIMENOrdering Facility: [facility] Address: [address] [place] [address] Performed By: #### I CA ####[facility] LABORATORYCLIA [id number] [address] [place] [facility] Calcium.ionized adjusted to pH 7.4 (Bld) [Moles/Vol] 1.00 mmol/L Low 1.08-1.30 [facility] Comment on above: Order Comment: Speci men Type: BLOOD SPECIMENOrdering Facility: [facility] Address: [address] [place] [address] Performed By: #### I CA ####[facility] LABORATORYCLIA [id number] [address] STATES OF [facility] CBC W Auto Differential pane l (Bld)on 10-28-2021 Basophils (Bld) [#/Vol] 10*3/uL Normal <0.11 [facility] Comment on above: Order Comment: Speci men Type: BLOOD SPECIMENOrdering Facility: [facility] Address: [address] [place] [address] Performed By: #### 5 7021-8 ####[facility] LABORATORYCLIA [id number] [address] STATES OF [facility] Basophils/100 WBC (Bld) 0.2 % Normal A [facility] Comment on above: Order Comment: Speci men Type: BLOOD SPECIMENOrdering Facility: [facility] Address: [address] [place] [address] Performed By: #### 5 7021-8 ####[facility] LABORATORYCLIA [id number] [address] Differential cell count method Nom (Bld) Auto Normal [facility] Comment on above: Order Comment: Speci men Type: BLOOD SPECIMENOrdering Facility: [facility] Address: [address] [place] [address] Performed By: #### 5 7021-8 ####[facility] LABORATORYCLIA [id number] [address] [place] Eosinophils (Bld) [#/Vol] 0.03 10*3/uL Normal <0.46 [facility] Comment on above: Order Comment: Speci men Type: BLOOD SPECIMENOrdering Facility: [facility] Address: [address] [place] [address] Performed By: #### 5 7021-8 ####[facility] LABORATORYCLIA [id number] [address] Eosinophils/100 WBC (Bld) 0.2 % Normal [facility] Comment on above: Order Comment: Speci men Type: BLOOD SPECIMENOrdering Facility: [facility] Address: [address] [place] [address] Performed By: #### 5 7021-8 ####[facility] LABORATORYCLIA [id number] [address] Erythrocyte distribution width (RBC) [Ratio] 18.4 % High 11.5-15.0 [facility] Comment on above: Order Comment: Speci men Type: BLOOD SPECIMENOrdering Facility: [facility] Address: [address] [place] [address] Performed By: #### 5 7021-8 ####[facility] LABORATORYCLIA [id number] [address] Hematocrit (Bld) [Volume fraction] 37.8 % Normal 36.0-46.0 [facility] Comment on above: Order Comment: Speci men Type: BLOOD SPECIMENOrdering Facility: [facility] Address: [address] [place] [address] Performed By: #### 5 7021-8 ####[facility]ORATORYCLIA [id number] [address] [place] Hemoglobin (Bld) [Mass/Vol] 12.2 g/dL Normal 11.5-15.5 [facility] Comment on above: Order Comment: Speci men Type: BLOOD SPECIMENOrdering Facility: [facility] Address: [address] [place] [address] Performed By: #### 5 7021-8 ####[facility] LABORATORYCLIA [id number] [address] IMMATURE GRAN % 1.0 % Normal [facility] Comment on above: Order Comment: Speci men Type: BLOOD SPECIMENOrdering Facility: [facility] Address: [address] [place] [address] Performed By: #### 5 7021-8 ####[facility] LABORATORYCLIA [id number] [address] IMMATURE GRAN ABS 0.12 k/uL High <0.10 [facility] Comment on above: Order Comment: Speci men Type: BLOOD SPECIMENOrdering Facility: [facility] Address: [address] [place] [address] Performed By: #### 5 7021-8 ####[facility] LABORATORYCLIA [id number] [address] Lymphocytes (Bld) [#/Vol] 1.86 10*3/uL Normal 1.00-4.0 0 [facility] Comment on above: Order Comment: Speci men Type: BLOOD SPECIMENOrdering Facility: [facility] Address: [address] [place] [address] Performed By: #### 5 7021-8 ####[facility] LABORATORYCLIA [id number] [address] Lymphocytes/100 WBC (Bld) 14.8 % Normal [facility] Comment on above: Order Comment: Speci men Type: BLOOD SPECIMENOrdering Facility: [facility] Address: [address] [place] [address] Performed By: #### 5 7021-8 ####[facility] LABORATORYCLIA [id number] [address] MCH (RBC) [Entitic mass] 32.3 pg Normal 26.0-34.0 [facility] Comment on above: Order Comment: Speci men Type: BLOOD SPECIMENOrdering Facility: [facility] Address: [address] [place] [address] Performed By: #### 5 7021-8 ####[facility] LABORATORYCLIA [id number] [address] MCHC (RBC) [Mass/Vol] 32.3 g/dL Normal 30.5-36.0 [facility] Comment on above: Order Comment: Speci men Type: BLOOD SPECIMENOrdering Facility: [facility] Address: [address] [place] [address] Performed By: #### 5 7021-8 ####[facility] LABORATORYCLIA [id number] [address] MCV (RBC) [Entitic vol] 100.0 fL Normal 80.0-100.0 [facility] Comment on above: Order Comment: Speci men Type: BLOOD SPECIMENOrdering Facility: [facility] Address: [address] [place] [address] Performed By: #### 5 7021-8 ####[facility] LABORATORYCLIA [id number] [address] Monocytes (Bld) [#/Vol] 0.54 10*3/uL Normal <0.87 [facility] Comment on above: Order Comment: Speci men Type: BLOOD SPECIMENOrdering Facility: [facility] Address: [address] [place] [address] Performed By: #### 5 7021-8 ####[facility] LABORATORYCLIA [id number] [address] Monocytes/100 WBC (Bld) 4.3 % Normal [facility] Comment on above: Order Comment: Speci men Type: BLOOD SPECIMENOrdering Facility: [facility] Address: [address] [place] [address] Performed By: #### 5 7021-8 ####[facility] LABORATORYCLIA [id number] [place] [address] [place] Neutrophils (Bld) [#/Vol] 10.04 10*3/uL High 1.45-7. 50 [facility] Comment on above: Order Comment: Speci men Type: BLOOD SPECIMENOrdering Facility: [facility] Address: [address] [place] [address] Performed By: #### 5 7021-8 ####[facility] LABORATORYCLIA [id number] [address] [place] Neutrophils/100 WBC (Bld) 79.5 % Normal [facility] Comment on above: Order Comment: Speci men Type: BLOOD SPECIMENOrdering Facility: [facility] [facility] Address: [address] [place] [address] Performed By: #### 5 7021-8 ####[facility] LABORATORYCLIA [id number] [address] [place] Nucleated RBC (Bld) [#/Vol] 10*3/uL Normal <0.01 [facility] Comment on above: Order Comment: Speci men Type: BLOOD SPECIMENOrdering Facility: [facility] Address: [address] [place] [address] Performed By: #### 5 7021-8 ####[facility] LABORATORYCLIA [id number] [address] [place] Nucleated RBC/100 WBC (Bld) [Ratio] 0.0 /100 WBC Normal [facility] Comment on above: Order Comment: Speci men Type: BLOOD SPECIMENOrdering Facility: [facility] Address: [address] [place] [address] Performed By: #### 5 7021-8 ####[facility] LABORATORYCLIA [id number] [address] [place] Platelet mean volume (Bld) [Entitic vol] 9.2 fL Normal 9.0-12.7 [facility] Comment on above: Order Comment: Speci men Type: BLOOD SPECIMENOrdering Facility: [facility] Address: [address] [place] [address] Performed By: #### 5 7021-8 ####[facility] LABORATORYCLIA [id number] [address] Platelets (Bld) [#/Vol] 254 10*3/uL Normal 150-400 [facility] Comment on above: Order Comment: Speci men Type: BLOOD SPECIMENOrdering Facility: [facility] Address: [address] [place] [address] Performed By: #### 5 7021-8 ####[facility] LABORATORYCLIA [id number] [address] RBC (Bld) [#/Vol] 3.78 10*6/uL Low 3.90-5.20 [facility] Comment on above: Order Comment: Speci men Type: BLOOD SPECIMENOrdering Facility: [facility] Address: [address] [place] [address] Performed By: #### 5 7021-8 ####[facility] LABORATORYCLIA [id number] [address] WBC (Bld) [#/Vol] 12.61 10*3/uL High 3.70-11.00 [facility] Comment on above: Order Comment: Speci men Type: BLOOD SPECIMENOrdering Facility: [facility] Address: [address] [place] [address] Performed By: #### 5 7021-8 ####[facility] LABORATORYCLIA [id number] [address] CBC panel Auto (Bld)on 10-28 Erythrocyte distribution width (RBC) [Ratio] 18.6 % High 11.5-15.0 [facility] Comment on above: Order Comment: Speci men Type: BLOOD SPECIMENOrdering Facility: [facility] Address: [address] [place] [address] Performed By: #### 5 8410-2 ####[facility] LABORATORYCLIA [id number] [address] Hematocrit (Bld) [Volume fraction] 32.8 % Low 36.0-46.0 [facility] Comment on above: Order Comment: Speci men Type: BLOOD SPECIMENOrdering Facility: [facility] Address: [address] [place] [address] Performed By: #### 5 8410-2 ####[facility] LABORATORYCLIA [id number] [address] Hemoglobin (Bld) [Mass/Vol] 10.6 g/dL Low 11.5-15.5 [facility] Comment on above: Order Comment: Speci men Type: BLOOD SPECIMENOrdering Facility: [facility] Address: [address] [place] [address] Performed By: #### 5 8410-2 ####[facility] LABORATORYCLIA [id number] [address] MCH (RBC) [Entitic mass] 31.5 pg Normal 26.0-34.0 [facility] Comment on above: Order Comment: Speci men Type: BLOOD SPECIMENOrdering Facility: [facility] Address: [address] [place] [address] Performed By: #### 5 8410-2 ####[facility] LABORATORYCLIA [id number] [address] MCHC (RBC) [Mass/Vol] 32.3 g/dL Normal 30.5-36.0 [facility] Comment on above: Order Comment: Speci men Type: BLOOD SPECIMENOrdering Facility: [facility] Address: [address] [place] [address] Performed By: #### 5 8410-2 ####[facility] LABORATORYCLIA [id number] [address] MCV (RBC) [Entitic vol] 97.3 fL Normal 80.0-100.0 [facility] Comment on above: Order Comment: Speci men Type: BLOOD SPECIMENOrdering Facility: [facility] Address: [address] Performed By: #### 5 8410-2 ####[facility] LABORATORYCLIA [id number] [address] Nucleated RBC (Bld) [#/Vol] 10*3/uL Normal <0.01 [facility] Comment on above: Order Comment: Speci men Type: BLOOD SPECIMENOrdering Facility: [facility] Address: [facility] [place] [address] Performed By: #### 5 8410-2 ####[facility] LABORATORYCLIA [id number] [address] [place] Platelet mean volume (Bld) [Entitic vol] 9.0 fL Normal 9.0-12.7 [facility] Comment on above: Order Comment: Speci men Type: BLOOD SPECIMENOrdering Facility: [facility] Address: [address] [place] [address] Performed By: #### 5 8410-2 ####[facility] LABORATORYCLIA [id number] [address] [place] Platelets (Bld) [#/Vol] 315 10*3/uL Normal 150-400 [facility] Comment on above: Order Comment: Speci men Type: BLOOD SPECIMENOrdering Facility: [facility] Address: [address] Performed By: #### 5 8410-2 ####[facility] LABORATORYCLIA [id number] [address] [place] RBC (Bld) [#/Vol] 3.37 10*6/uL Low 3.90-5.20 [facility] Comment on above: Order Comment: Speci men Type: BLOOD SPECIMENOrdering Facility: [facility] Address: [address] [place] [address] Performed By: #### 5 8410-2 ####[facility] LABORATORYCLIA [id number] [address] [place] WBC (Bld) [#/Vol] 13.78 10*3/uL High 3.70-11.00 [facility] Comment on above: Order Comment: Speci men Type: BLOOD SPECIMENOrdering Facility: [facility] Address: [address] [place] [address] Performed By: #### 5 8410-2 ####[facility] LABORATORYCLIA [id number] [address] STATES [facility] Erythrocyte distribution width (RBC) [Ratio] 18.6 % High 11.5-15.0 [facility] Comment on above: Order Comment: Speci men Type: BLOOD SPECIMENOrdering Facility: [facility] Address: [address] [place] [address] Performed By: #### 5 8410-2 ####[facility] LABORATORYCLIA [id number] [address] Hematocrit (Bld) [Volume fraction] 33.2 % Low 36.0-46.0 [facility] Comment on above: Order Comment: Speci men Type: BLOOD SPECIMENOrdering Facility: [facility] Address: [address] [place] [address] Performed By: #### 5 8410-2 ####[facility] LABORATORYCLIA [id number] [address] [place] Hemoglobin (Bld) [Mass/Vol] 10.9 g/dL Low 11.5-15.5 [facility] Comment on above: Order Comment: Speci men Type: BLOOD SPECIMENOrdering Facility: [facility] Address: [address] [place] [address] Performed By: #### 5 8410-2 ####[facility] LABORATORYCLIA [id number] [address] MCH (RBC) [Entitic mass] 32.2 pg Normal 26.0-34.0 [facility] Comment on above: Order Comment: Speci men Type: BLOOD SPECIMENOrdering Facility: [facility] Address: [address] [place] [address] Performed By: #### 5 8410-2 ####[facility] LABORATORYCLIA [id number] [address] STATES [facility] MCHC (RBC) [Mass/Vol] 32.8 g/dL Normal 30.5-36.0 [facility] Comment on above: Order Comment: Speci men Type: BLOOD SPECIMENOrdering Facility: [facility] Address: [address] [place] [address] Performed By: #### 5 8410-2 ####[facility] LABORATORYCLIA [id number] [address] OF [facility] MCV (RBC) [Entitic vol] 97.9 fL Normal 80.0-100.0 [facility] Comment on above: Order Comment: Speci men Type: BLOOD SPECIMENOrdering Facility: [facility] Address: [address] [place] [address] Performed By: #### 5 8410-2 ####[facility] LABORATORYCLIA [id number] [address] Nucleated RBC (Bld) [#/Vol] 10*3/uL Normal <0.01 [facility] Comment on above: Order Comment: Speci men Type: BLOOD SPECIMENOrdering Facility: [facility] Address: [address] [place] [address] Performed By: #### 5 8410-2 ####[facility] LABORATORYCLIA [id number] [address] Platelet mean volume (Bld) [Entitic vol] 9.0 fL Normal 9.0-12.7 [facility] Comment on above: Order Comment: Speci men Type: BLOOD SPECIMENOrdering Facility: [facility] Address: [address] [place] [address] Performed By: #### 5 8410-2 ####[facility] LABORATORYCLIA [id number] [place] [address] [place] Platelets (Bld) [#/Vol] 308 10*3/uL Normal 150-400 [facility] Comment on above: Order Comment: Speci men Type: BLOOD SPECIMENOrdering Facility: [facility] Address: [address] [place] [address] Performed By: #### 5 8410-2 ####[facility] LABORATORYCLIA [id number] [address] [place] RBC (Bld) [#/Vol] 3.39 10*6/uL Low 3.90-5.20 [facility] Comment on above: Order Comment: Speci men Type: BLOOD SPECIMENOrdering Facility: [facility] Address: [address] [place] [address] Performed By: #### 5 8410-2 ####[facility] LABORATORYCLIA [id number] [address] OF [facility] WBC (Bld) [#/Vol] 17.70 10*3/uL High 3.70-11.00 [facility] Comment on above: Order Comment: Speci men Type: BLOOD SPECIMENOrdering Facility: [facility] Address: [address] [place] [address] Performed By: #### 5 8410-2 ####[facility] LABORATORYCLIA [id number] [address] CONFIRM BLOOD TYPEon 022 ABO A Normal [facility] Comment on above: Order Comment: Speci men Type: BLOOD SPECIMENOrdering Facility: [facility] Address: [address] [place] [address] Performed By: #### C ONABO ####[facility] BLOOD BANKCLIA [id number] [address] Rh Nom (Bld) Positive Normal [facility] Comment on above: Order Comment: Speci men Type: BLOOD SPECIMENOrdering Facility: [facility] Address: [address] [place] [address] Performed By: #### C ONABO ####[facility] BLOOD BANKCLIA [id number] [place] [address] [place] CONSULTon 10-28-2021 CONSULT Normal [facility] CONSULT Normal [facility] CONSULT PROGon 10-28-2021 CONSULT PROG Normal [facility] CT ABD/PEL W IVCONon 022 CT ABD/PEL W IVCON Invalid Interpretation Code [facility] CT BRAIN WO IVCONon 10-29-19 CT BRAIN WO IVCON Normal [facility] CT BRAIN WO IVCON Normal [facility] CT CERVICAL SPINE WO IVCONon 10-28-2021 CT CERVICAL SPINE WO IVCON Normal [facility] CT CHEST W IVCONon CT CHEST W IVCON Invalid Interpretation Code [facility] CT LUMBAR SPINE W RECON DATA -NBon 10-28-2021 CT LUMBAR SPINE W RECON DATA -NB Invalid Interpretation Code [facility] CT T-SPINE W RECON DATA -NBo n 10-28-2021 CT T-SPINE W RECON DATA -NB Invalid Interpretation Code [facility] CTA HEAD WO/W IVCONon 2021 CTA HEAD WO/W IVCON Normal [facility] Comprehensive metabolic 2000 panelon 10-28-2021 Albumin [Mass/Vol] 4.0 g/dL Normal 3.9-4.9 [facility] Comment on above: Order Comment: Speci men Type: BLOOD SPECIMENOrdering Facility: [facility] Address: [address] [place] [address] Performed By: #### 2 777-1, 69301-7, ####[facility] LABORATORYCLIA [id number] [place] [address] [place] ALP [Catalytic activity/Vol] 68 U/L Normal 34-123 [facility] Comment on above: Order Comment: Speci men Type: BLOOD SPECIMENOrdering Facility: [facility] Address: [address] [place], [place] [address] Performed By: #### 2 777-1, 76226-4, ####[facility] LABORATORYCLIA [id number] [address] STATES OF [facility] ALT With P-5'-P [Catalytic activity/Vol] 11 U/L Normal 7-38 [facility] Comment on above: Order Comment: Speci men Type: BLOOD SPECIMENOrdering Facility: [facility] Address: [address] [place] [address] Performed By: #### 2 777-1, 12516-9, ####[facility] LABORATORYCLIA [id number] [address] STATES OF [facility] Anion gap [Moles/Vol] 17 mmol/L Normal 9-18 [facility] Comment on above: Order Comment: Speci men Type: BLOOD SPECIMENOrdering Facility: [facility] Address: [address] [place] [address] Performed By: #### 2 777-1, , ####[facility] LABORATORYCLIA [id number] [address] OF [facility] AST With P-5'-P [Catalytic activity/Vol] 15 U/L Normal 13-35 [facility] Comment on above: Order Comment: Speci men Type: BLOOD SPECIMENOrdering Facility: [facility] Address: [address] [place] [address] Performed By: #### 2 777-1, , ####[facility] LABORATORYCLIA [id number] [address] STATES OF [facility] Bilirubin [Mass/Vol] 0.2 mg/dL Normal 0.2-1.3 [facility] Comment on above: Order Comment: Speci men Type: BLOOD SPECIMENOrdering Facility: [facility] Address: [address] [place] [address] Performed By: #### 2 777-1, 46358-1, ####[facility] LABORATORYCLIA [id number] [address] OF [facility] Calcium [Mass/Vol] 7.7 mg/dL Low 8.5-10.2 [facility] Comment on above: Order Comment: Speci men Type: BLOOD SPECIMENOrdering Facility: [facility] Address: [address] [place] [address] Performed By: #### 2 777-1, , ####[facility] LABORATORYCLIA [id number] [place] [address] [place] Chloride [Moles/Vol] 106 mmol/L High 97-105 [facility] Comment on above: Order Comment: Speci men Type: BLOOD SPECIMENOrdering Facility: [facility] Address: [address] [place] [address] Performed By: #### 2 777-1, , ####[facility] LABORATORYCLIA [id number] [address] [place] CO2 [Moles/Vol] 20 mmol/L Low 22-30 [facility] Comment on above: Order Comment: Speci men Type: BLOOD SPECIMENOrdering Facility: [facility] Address: [address] [place] [address] Performed By: #### 2 777-1, , ####[facility] LABORATORYCLIA [id number] [address] [place] Creatinine [Mass/Vol] 0.35 mg/dL Low 0.58-0.96 [facility] Comment on above: Order Comment: Speci men Type: BLOOD SPECIMENOrdering Facility: [facility] Address: [address] [place] [address] Performed By: #### 2 777-1, , ####[facility] LABORATORYCLIA [id number] [address] ESTIMATED GLOMERULAR FILTRATION RATE 113 mL/min/1.73m??? Normal >=60 [facility] Comment on above: Order Comment: Speci men Type: BLOOD SPECIMENOrdering Facility: [facility] Address: [address] [place] [id number] Result Comment: Ameena mated Glomerular Filtration Rate [...] actual GFR. Performed By: #### 2 777-1, 94549-1, ####[facility]PITALIA [id number] [place] [address] [place] Glucose [Mass/Vol] 150 mg/dL High 74-99 [facility] Comment on above: Order Comment: Lauren santana Type: BLOOD SPECIMENOrdering Facility: [facility] Address: [address] [place] [address] Result Comment: The [place] [employer] (ADA) provides guidance for cutoff [...] Standards of Medical Care in Diabetes 2016, [employer]. Diabetes Care. 2016.39(Suppl 1). Performed By: #### 2 777-1, 00231-9, ####[facility] LABORATORYIA [id number] [place] [address] [place] Potassium [Moles/Vol] 3.5 mmol/L Low 3.7-5.1 [facility] Comment on above: Order Comment: Lauren santana Type: BLOOD SPECIMENOrdering Facility: [facility] Address: [address] [place] [id number] Performed By: #### 2 777-1, , ####[facility] LABORATORYCLIA [id number] [place] [address] [place] Protein [Mass/Vol] 5.9 g/dL Low 6.3-8.0 [facility] Comment on above: Order Comment: Speci men Type: BLOOD SPECIMENOrdering Facility: [facility] Address: [address] [place] [address] Performed By: #### 2 777-1, , ####[facility] LABORATORYCLIA [id number] [place] [address] [place] Sodium [Moles/Vol] 143 mmol/L Normal 136-144 [facility] Comment on above: Order Comment: Speci men Type: BLOOD SPECIMENOrdering Facility: [facility] Address: [address] [place] [address] Performed By: #### 2 777-1, , ####[facility] LABORATORYCLIA [id number] [place] [address] [place] Urea nitrogen [Mass/Vol] 9 mg/dL Normal 7-21 [facility] Comment on above: Order Comment: Speci men Type: BLOOD SPECIMENOrdering Facility: [facility] Address: [address] [place] [address] Performed By: #### 2 777-1, , ####[facility] LABORATORYCLIA [id number] [place] [address] [place] Albumin [Mass/Vol] 3.6 g/dL Low 3.9-4.9 [facility] Comment on above: Order Comment: Speci men Type: BLOOD SPECIMENOrdering Facility: [facility] Address: [address] [place] [address] Performed By: #### 2 4323-8, 3040-3 ####[facility] LABORATORYCLIA [id number] [place] [address] [place] ALP [Catalytic activity/Vol] 70 U/L Normal 34-123 [facility] Comment on above: Order Comment: Speci men Type: BLOOD SPECIMENOrdering Facility: [facility] Address: [address] [place] [place] [address] Performed By: #### 2 4323-8, 3040-3 ####[facility] LABORATORYCLIA [id number] [address] [place] ALT With P-5'-P [Catalytic activity/Vol] 12 U/L Normal 7-38 [facility] Comment on above: Order Comment: Speci men Type: BLOOD SPECIMENOrdering Facility: [facility] Address: [address] [place] [address] Performed By: #### 2 4323-8, 3039-3 ####[facility] LABORATORYCLIA [id number] [address] STATES OF [facility] Anion gap [Moles/Vol] 21 mmol/L High 9-18 [facility] Comment on above: Order Comment: Speci men Type: BLOOD SPECIMENOrdering Facility: [facility] Address: [address] [place] [place] [address] Performed By: #### 2 4323-8, 0-3 ####[facility] LABORATORYCLIA [id number] [address] OF [facility] AST With P-5'-P [Catalytic activity/Vol] 15 U/L Normal 13-35 [facility] Comment on above: Order Comment: Speci men Type: BLOOD SPECIMENOrdering Facility: [facility] Address: [address] [place] [place] [address] Performed By: #### 2 4323-8, 3040-3 ####[facility] LABORATORYCLIA [id number] [address] OF [facility] Bilirubin [Mass/Vol] 0.2 mg/dL Normal 0.2-1.3 [facility] Comment on above: Order Comment: Speci men Type: BLOOD SPECIMENOrdering Facility: [facility] Address: [address] [place] [address] Performed By: #### 2 4323-8, 3040-3 ####[facility] LABORATORYCLIA [id number] [place] [address] [place] Calcium [Mass/Vol] 7.3 mg/dL Low 8.5-10.2 [facility] Comment on above: Order Comment: Speci men Type: BLOOD SPECIMENOrdering Facility: [facility] Address: [address] [place] [address] Performed By: #### 2 4323-8, 0-3 ####[facility] LABORATORYCLIA [id number] [place] [address] [place] Chloride [Moles/Vol] 96 mmol/L Low 97-105 [facility] Comment on above: Order Comment: Speci men Type: BLOOD SPECIMENOrdering Facility: [facility] Address: [address] [place] [address] Performed By: #### 2 4328, 3039-3 ####[facility] LABORATORYCLIA [id number] [address] [place] CO2 [Moles/Vol] 16 mmol/L Low 22-30 [facility] Comment on above: Order Comment: Speci men Type: BLOOD SPECIMENOrdering Facility: [facility] Address: [address] [place] [address] Performed By: #### 2 4323-8, 0-3 ####[facility] LABORATORYCLIA [id number] [place] [address] [place] Creatinine [Mass/Vol] 0.37 mg/dL Low 0.58-0.96 [facility] Comment on above: Order Comment: Speci men Type: BLOOD SPECIMENOrdering Facility: [facility] Address: [address] [place] [address] Performed By: #### 2 4323-8, 3040-3 ####[facility] LABORATORYCLIA [id number] [address] [place] ESTIMATED GLOMERULAR FILTRATION RATE 111 mL/min/1.73m??? Normal >=60 [facility] Comment on above: Order Comment: Lauren santana Type: BLOOD SPECIMENOrdering Facility: [facility] Address: [address] [address] Result Comment: Ameena mated Glomerular Filtration Rate [...] actual GFR. Performed By: #### 2 4323-8, 3040-3 ####[facility] LABORATORYCLIA [id number] [place] [address] [place] Glucose [Mass/Vol] 154 mg/dL High 74-99 [facility] Comment on above: Order Comment: Lauren santana Type: BLOOD SPECIMENOrdering Facility: [facility] Address: [address] [place] [address] Result Comment: The [place] Diabetes Association (ADA) provides guidance for cutoff [...] Standards of Medical Care in Diabetes 2016, [employer] Association. Diabetes Care. 2016.39(Suppl 1). Performed By: #### 2 4323-8, 3040-3 ####[facility] LABORATORYCLIA [id number] [place] [address] [place] Potassium [Moles/Vol] 2.8 mmol/L Low 3.7-5.1 [facility] Comment on above: Order Comment: Lauren santana Type: BLOOD SPECIMENOrdering Facility: [facility] Address: [address] [id number] Performed By: #### 2 4323-8, 3040-3 ####[facility] LABORATORYCLIA [id number] [address] Protein [Mass/Vol] 5.8 g/dL Low 6.3-8.0 [facility] Comment on above: Order Comment: Speci men Type: BLOOD SPECIMENOrdering Facility: [facility] Address: [address] [place] [address] Performed By: #### 2 4323-8, 3040-3 ####[facility] LABORATORYCLIA [id number] [address] STATES [facility] Sodium [Moles/Vol] 133 mmol/L Low 136-144 [facility] Comment on above: Order Comment: Speci men Type: BLOOD SPECIMENOrdering Facility: [facility] Address: [address] [place] [address] Performed By: #### 2 4323-8, 3040-3 ####[facility] LABORATORYCLIA [id number] [address] Urea nitrogen [Mass/Vol] 9 mg/dL Normal 7-21 [facility] Comment on above: Order Comment: Speci men Type: BLOOD SPECIMENOrdering Facility: [facility] Address: [address] [place] [address] Performed By: #### 2 4323-8, 3040-3 ####[facility] LABORATORYCLIA [id number] [address] [place] ED NOTEon 10-28-2021 ED NOTE HNO ID: [id number] Author: Le Oliva RN Service: Nursing Author Type: Registered Nurse Type: ED Notes Filed: 10/28/2021 3:23 AM Note Text: Patient being taken to OR at this time Normal [facility] ED NOTE Normal [facility] ED NOTE HNO ID: [id number] Author: Le Oliva RN Service: Nursing Author Type: Registered Nurse Type: ED Notes Filed: 10/28/2021 1:33 AM Note Text: 01:32- 100mg Rocuronium given 01:33 - 100mg Fentanyl given Normal [facility] ED NOTE HNO ID: [id number] Author: Le Oliva RN Service: Nursing Author Type: Registered Nurse Type: ED Notes Filed: 10/28/2021 1:31 AM Note Text: Patient end tital 14, unable to protect airway. Patient will be intujbated Normal [facility] ED NOTE Normal [facility] ED NOTE HNO ID: [id number] Author: Le Oliva RN Service: Nursing Author Type: Registered Nurse Type: ED Notes Filed: 10/28/2021 4:43 AM Note Text: Dr. Landin contacted Dr. Greer (neurosurgery) [facility] ED NOTE HNO ID: [id number] Author: TR Cavazos Service: Emergency Medicine Author Type: Health Electrical Accessories Assembler Type: ED Notes Filed: 10/28/2021 12:53 AM Note Text: STAT line was called at 12:37am for a Trauma 3; Moni Normal [facility] ED NOTE HNO ID: [id number] Author: Venancio Mitchell RN Service: ? Author Type: Registered Nurse Type: ED Notes Filed: 10/28/2021 12:48 AM Note Text: Bed: 08-ED Expected date: Expected time: Means of arrival: Comments: [place]- [facility] Normal [facility] ED PROV NOTEon 10-28-2021 ED PROV NOTE Normal [facility] Ethanol SerPl-mCncon 022 Ethanol [Mass/Vol] 116 mg/dL High <11 [facility] Comment on above: Order Comment: Speci men Type: BLOOD SPECIMENOrdering Facility: [facility] Address: [address] [place] [id number] Result Comment: Valu es > 80 mg/dL may indicate intoxication Performed By: #### 5 643-2 ####[facility] LABORATORYCLIA [id number] [place] [address] [place] HEMATOCRIT (HCT)on 2 Hematocrit (Bld) [Volume fraction] 32.4 % Low 36.0-46.0 [facility] Comment on above: Order Comment: Speci men Type: BLOOD SPECIMENOrdering Facility: [facility] Address: [address] [place] [address] Performed By: #### H CT, HGB ####[facility] LABORATORYCLIA [id number] [address] STATES OF [facility] Hematocrit (Bld) [Volume fraction] 25.5 % Low 36.0-46.0 [facility] Comment on above: Order Comment: Speci men Type: BLOOD SPECIMENOrdering Facility: [facility] Address: [address] [place] [address] Performed By: #### H CT, HGB ####[facility] LABORATORYCLIA [id number] [address] HEMOGLOBIN (HGB)on 2 Hemoglobin (Bld) [Mass/Vol] 10.5 g/dL Low 11.5-15.5 [facility] Comment on above: Order Comment: Speci men Type: BLOOD SPECIMENOrdering Facility: [facility] Address: [address] [place] [address] Performed By: #### H CT, HGB ####[facility] LABORATORYCLIA [id number] [address] [place] Hemoglobin (Bld) [Mass/Vol] 8.1 g/dL Low 11.5-15.5 [facility] Comment on above: Order Comment: Speci men Type: BLOOD SPECIMENOrdering Facility: [facility] Address: [address] [place] [address] Performed By: #### H CT, HGB ####[facility] LABORATORYCLIA [id number] [address] STATES [place] HISTORY PHYSICALon 2 HISTORY PHYSICAL Normal [facility] Lipase SerPl-cCncon 10-29-19 22 Lipase [Catalytic activity/Vol] 11 U/L Low 16-61 [facility] Comment on above: Order Comment: Speci men Type: BLOOD SPECIMENOrdering Facility: [facility] Address: [address] [place], [place] [address] [place] [phone] Performed By: #### 2 4323-8, 3040-3 ####[facility] LABORATORYCLIA [id number] [address] [id number] [facility] Magnesium SerPl-mCncon 10-28 Magnesium [Mass/Vol] 1.6 mg/dL Low 1.7-2.3 [facility] Comment on above: Order Comment: Speci men Type: BLOOD SPECIMENOrdering Facility: [facility] Address: [address] [place], [place] [phone] Performed By: #### 2 777-1, 32330-6, 11722-2 ####[facility] LABORATORYCLIA [id number] [address] OPERATIVE NOon 10-28-2021 OPERATIVE NO Normal [facility] OPERATIVE NO Normal [facility] PT panel Coag (PPP)on 2021 INR Coag (PPP) [Relative time] 1.0 {INR} Normal 0.9-1.3 [facility] Comment on above: Order Comment: Speci esther Type: BLOOD SPECIMENOrdering Facility: [facility] Address: [address] [place], [place] [address] [address] Result Comment: Sariah min K Antagonist (VKA) Therapeutic Range: INR 2 to 3 (Target INR of 2.5)Note: For patients treated with VKA drugs, such as warfarin, the [employer]icians 2012 Guideline recommends [...] al. Chest 2012, 141:7S-47SNishimura RA, et al. JACC 2017, 70: 252-289 Performed By: #### 3 4528-0, 95853-7 ####[facility] LABORATORYCLIA [id number] [place] [address] [place] PT Coag (PPP) [Time] 11.4 s Normal 9.7-13.0 [facility] Comment on above: Order Comment: Speci men Type: BLOOD SPECIMENOrdering Facility: [facility] Address: [address] [place] [address] Performed By: #### 3 4528-0, 42711-6 ####[facility] LABORATORYCLIA [id number] [address] STATES [place] Phosphate SerPl-mCncon 10-28 Phosphate [Mass/Vol] 4.1 mg/dL Normal 2.7-4.8 [facility] Comment on above: Order Comment: Speci men Type: BLOOD SPECIMENOrdering Facility: [facility] Address: [address] [place] [address] Performed By: #### 2 777-1, 75771-2, 42936-0 ####[facility] LABORATORYCLIA [id number] [place] [address] [place] SARS-CoV-2 RNA Resp Ql NADEEM+p robeon 10-28-2021 SARS-CoV-2 (COVID-19) RNA NADEEM+probe Ql (Resp) COVID 19 RESULT: SARS-CoV-2 (Agent of COVID-19) Not Detected by RT-PCR or equivalent method. This test has been authorized by FDA under an Emergency Use Authorization (EUA). Normal [facility] Comment on above: Performed By: #### 9 4500-6 ####[facility] LABORATORYCLIA [id number] [place] [address] [place] STAPH AUREUS PCRon 2 S. aureus and MRSA panel NADEEM+probe (Nose) Normal Negative [facility] Comment on above: Order Comment: Speci men Type: SWAB OF INTERNAL NOSEOrdering Facility: [facility] Address: [address] [place] [address] Result Comment: Nega tive for Staphylococcus aureus by PCR.Negative for MRSA by PCR Performed By: #### S APCR ####[facility] LABORATORYCLIA [id number] [address] SURGICAL PATHOLOGYon 022 CASE REPORT Normal [facility] Comment on above: Order Comment: Speci men Type: BLOOD CLOT SAMPLEOrdering Facility: [facility] Address: [address] [place] [address] Result Comment: Surg ical Pathology Report Case: [id number] Provider: Bryce Greer MD Collected: 10/28/2021 04:26 AMOrdering Location: [facility] Received: 10/28/2021 04:27 PM DepartmentPathologist: JANAE Clarkpecimen: CLOT (DO NOT USE FOR BONE MARROW) Performed By: #### S ####[facility] LABORATORYCLIA [id number] [address] FINAL DIAGNOSIS Normal [facility] Comment on above: Order Comment: Speci men Type: BLOOD CLOT SAMPLEOrdering Facility: [facility] Address: [address] [place] [address] Result Comment: Clot , evacuation:- Blood elements and fibrin, consistent with clot (hematoma). Performed By: #### S ####[facility] LABORATORYCLIA [id number] [address] FINAL PERFORMING LAB Normal [facility] Comment on above: Order Comment: Speci men Type: BLOOD CLOT SAMPLEOrdering Facility: [facility] Address: [address] [place] [address] Result Comment: Diag nostic interpretation performed at [facility], [address] [place] [address] CLIA# [id number] Director: Dave Ramirez M.D. Performed By: #### S ####[facility] LABORATORYCLIA [id number] [address] GROSS DESCRIPTION Normal [facility] Comment on above: Order Comment: Speci men Type: BLOOD CLOT SAMPLEOrdering Facility: [facility] Address: [address] [place] [address] Result Comment: A. C LOT (DO NOT USE FOR BONE MARROW).Received in formalin labeled as clot multiple red, hemorrhagic soft fragments of clotted blood aggregating 9 x 7 x 2.3 cm. Vascular tissue is not present. Cylinder Dyer sections are submitted in 1 cassette.Gross examination performed at [facility], [address] [place], [place] [address]RSA October 29, 2021 2:09 PM Performed By: #### S ####[facility] HOSPITALIA [id number] [address] TEG PANEL INTERPon 2 INTERPRETATION(THROMBOGRA PH) Normal [facility] Comment on above: Order Comment: Speci men Type: BLOOD SPECIMENOrdering Facility: [facility] Address: [address] [place] [address] Result Comment: Perf orming Pathologist: Chelsea HolguinInterpretation: [...] TEG results. Performed By: #### T EGPNP ####[facility] LABORATORYCLIA [id number] [address] OF [place]#### [id number] ####[facility] LABCLIA [id number] [address] THROMBOGRAPH PANELon 03-13-2 022 Clot angle TEG (Bld) [Angle] 75.4 degrees High 47.0-74.0 [facility] Comment on above: Order Comment: Speci men Type: BLOOD SPECIMENOrdering Facility: [facility] Address: [address] [place] [address] Performed By: #### T EGPNP ####[facility] LABORATORYCLIA [id number] [address]#### [id number] ####[facility] LABCLIA [id number] [address] Clot Lysis 30 Min post maximum clot amplitude TEG (Bld) [Length fraction] 0.0 % Normal 0.0-8.0 [facility] Comment on above: Order Comment: Speci men Type: BLOOD SPECIMENOrdering Facility: [facility] Address: [address] [place] [address] Performed By: #### T EGPNP ####[facility] LABORATORYCLIA [id number] [address] STATES [facility]#### [id number] ####[facility] LABCLIA [id number] [address] [place] Clotting time TEG (Bld) 5.2 minutes Normal 4.0-10.0 [facility] Comment on above: Order Comment: Speci men Type: BLOOD SPECIMENOrdering Facility: [facility] Address: [address] [place] [address] Performed By: #### T EGPNP ####[facility] LABORATORYCLIA [id number] [address] [place]#### [id number] ####[facility] LABCLIA [id number] [address] [place] Coagulation index TEG Qn (Bld) 3.2 Normal -4.6-3.2 [facility] Comment on above: Order Comment: Speci men Type: BLOOD SPECIMENOrdering Facility: [facility] Address: [address] [place] [address] Result Comment: The Coagulation Index, a secondary parameter, is labeled by the refrigeration tech as for research use only and is used per the refrigeration tech's instructions. Its performance characteristics were determined by [facility]'s Pinky Clementina [facility] Pathology and Laboratory Medicine [place] in a manner consistent with CLIA requirements. This test has not been cleared by the U.S. Food and Drug Administration. Performed By: #### T EGPNP ####[facility] LABORATORYCLIA [id number] [address] [place] [facility]#### [id number] ####[facility] LABCLIA [id number] [address] [place] Maximum clot firmness TEG (Bld) [Length] 74.4 mm Normal 51.0-75.0 [facility] Comment on above: Order Comment: Speci men Type: BLOOD SPECIMENOrdering Facility: [facility] Address: [address] [place] [address] Performed By: #### T EGPNP ####[facility] LABORATORYCLIA [id number] [place] [address] [place]#### [id number] ####[facility] LABCLIA [id number] [place] [address] [place] TOX SCREEN ROUT URon 10-28-2 022 Amphetamines Confirm (U) [Mass/Vol] Positive Abnormal Negative [facility] Comment on above: Order Comment: Speci men Type: URINE SPECIMENOrdering Facility: [facility] Address: [address] [place] [address] Result Comment: Cuto ff threshold at 1000 ng/mL. Performed By: #### U TOX2 ####[facility] LABORATORYCLIA [id number] [address] [place] BARBITURATES, URINE Negative Normal Negative [facility] Comment on above: Order Comment: Speci men Type: URINE SPECIMENOrdering Facility: [facility] Address: [address] [place] [address] Result Comment: Cuto ff threshold at 200 ng/mL. Performed By: #### U TOX2 ####[facility]ORATORYCLIA [id number] [place] [address] [place] BENZODIAZEPINES, UR Negative Normal Negative [facility] Comment on above: Order Comment: Speci men Type: URINE SPECIMENOrdering Facility: [facility] Address: [address] [place] [address] Result Comment: Cuto ff threshold at 200 ng/mL. Performed By: #### U TOX2 ####[facility] LABORATORYCLIA [id number] [address] [place] CANNABINOIDS,URINE Negative Normal Negative [facility] Comment on above: Order Comment: Speci men Type: URINE SPECIMENOrdering Facility: [facility] Address: [address] [place] [address] Result Comment: Cuto ff threshold at 50 ng/mL. Performed By: #### U TOX2 ####[facility]ORATORYCLIA [id number] [address] [place] Cocaine Ql (U) Negative Normal Negative [facility] Comment on above: Order Comment: Speci men Type: URINE SPECIMENOrdering Facility: [facility] Address: [address] [place] [address] Result Comment: Cuto ff threshold at 300 ng/mL. Performed By: #### U TOX2 ####[facility]ORATORYCLIA [id number] [place] [address] [place] Ethanol (U) [Mass/Vol] <11 Normal <11 [facility] Comment on above: Order Comment: Speci men Type: URINE SPECIMENOrdering Facility: [facility] Address: [address] [place] [address] Performed By: #### U TOX2 ####[facility]ORATORYCLIA [id number] [address] Opiates Screen Ql (U) Negative Normal Negative [facility] Comment on above: Order Comment: Speci men Type: URINE SPECIMENOrdering Facility: [facility] Address: [address] [place] [address] Result Comment: Cuto ff threshold at 300 ng/mL. Performed By: #### U TOX2 ####[facility] LABORATORYCLIA [id number] [address] oxyCODONE cutoff Screen (U) [Mass/Vol] Negative Normal Negative [facility] Comment on above: Order Comment: Speci men Type: URINE SPECIMENOrdering Facility: [facility] Address: [address] [place] [address] Result Comment: Cuto ff threshold at 100 ng/mL. Performed By: #### U TOX2 ####[facility] LABORATORYCLIA [id number] [address] Phencyclidine Ql (U) Negative Normal Negativ e, Unable to assay due to interfering substance [facility] Comment on above: Order Comment: Speci men Type: URINE SPECIMENOrdering Facility: [facility] Address: [address] [place] [address] Result Comment: Cuto ff threshold at 25 ng/mL. Performed By: #### U TOX2 ####[facility] LABORATORYCLIA [id number] [address] OF [facility] TYPE AND SCREENon 10-28-2021 ABO A Normal [facility] Comment on above: Order Comment: Speci men Type: BLOOD SPECIMENOrdering Facility: [facility] Address: [address] [place] [address] Performed By: #### T SCR ####[facility] BLOOD BANKCLIA [id number] [address] HISTORICAL AB SCR STATUS Negative Normal [facility] Comment on above: Order Comment: Speci men Type: BLOOD SPECIMENOrdering Facility: [facility] Address: [address] [address] Performed By: #### T SCR ####[facility] BLOOD BANKCLIA [id number] [address] [place] Rh Nom (Bld) Positive Normal [facility] Comment on above: Order Comment: Speci men Type: BLOOD SPECIMENOrdering Facility: [facility] Address: [address] [place] [address] Performed By: #### T SCR ####[facility] BLOOD BANKCLIA [id number] [address] OF [facility] TYPE AND SCREEN EXPIRATION 10/31/2021 23:59 Normal [facility] Comment on above: Order Comment: Speci men Type: BLOOD SPECIMENOrdering Facility: [facility] Address: [address] [place] [address] Performed By: #### T SCR ####[facility] BLOOD BANKCLIA [id number] [address] OF [facility] XR CHEST 1V FRONTALon 2021 XR CHEST 1V FRONTAL Normal [facility] XR CHEST 1V FRONTAL Normal [facility] aPTT PPPon 10-28-2021 aPTT Coag (PPP) [Time] 25.6 s Normal 23.0-32.4 [facility] Comment on above: Order Comment: Speci men Type: BLOOD SPECIMENOrdering Facility: [facility] Address: [address] [place] [address] Performed By: #### 3 4528-0, 95039-9 ####[facility] LABORATORYCLIA [id number] [address] Absolute lymphocyte counton 10-27-2021 Lymphocytes Auto (Unsp spec) [#/Vol] 1.52 10*3/uL 0.83-4.51 [facility] Work Phone: Basophil percentageon 2021 Basophils/100 WBC (Bld) 0.3 % 0-1 [facility] Work Phone: Chloride [Moles/Vol] 107 mmol/L 98-107 [facility] Work Phone: Eosinophils/100 WBC (Bld) 1.0 % 0-5 [facility] Work Phone: Glucose [Mass/Vol] 126 mg/dL 74-106 [facility] Work Phone: Comment on above: Fasting Glucose resu lt greater than or equal to 126 mg/dL suggests DIABETES MELLITUS per A.D.A. criteria. Neutrophils (Bld) [#/Vol] 6.9 10*3/uL 2.0-7.7 [facility] Work Phone: Neutrophils/100 WBC (Bld) 74.4 % 47-70 [facility] Work Phone: Potassium [Moles/Vol] 3.5 mmol/L 3.5-5.1 [facility] Work Phone: [phone] Sodium [Moles/Vol] 139 mmol/L 136-145 [facility] Work Phone: [phone] WBC (Bld) [#/Vol] 9.2 10*3/uL 4.4-11.0 [facility] Work Phone: Blood erythrocytes count (nu mber/volume)on 10-27-2021 RBC (Bld) [#/Vol] 4.16 10*6/uL 4.2-5.4 [facility] Work Phone: [phone] Blood hemoglobin measurement (mass/volume)on 10-27-2021 Hemoglobin (Bld) [Mass/Vol] 13.4 g/dL 12.0-15.0 [facility] Work Phone: [phone] Blood lymphocytes/100 leukoc yteson 10-27-2021 Lymphocytes/100 WBC (Bld) 16.5 % 19-41 [facility] Work Phone: [phone] Blood manual differential co mment interpretation (narrative result)on 10-27-2021 Manual differential comment Kuldip (Bld) [Interp] SCANNED [facility] Work Phone: Blood monocytes/100 leukocyt eson 03-12-2022 Monocytes/100 WBC (Bld) 7.4 % 0-10 [facility] Work Phone: Blood platelet mean volumeon 10-27-2021 Platelet mean volume (Bld) [Entitic vol] 8.9 fL 6.2-12.0 [facility] Work Phone: Determination of erythrocyte mean corpuscular volume (MCV)on 10-27-2021 MCV (RBC) [Entitic vol] 98.3 fL 81-99 [facility] Work Phone: Hematocrit Auto (Bld) [Volum e fraction]on 10-27-2021 Hematocrit (Bld) [Volume fraction] 40.9 % 37-47 [facility] Work Phone: INR in Blood by Coagulation assayon 10-27-2021 INR Coag (Bld) [Relative time] 1.2 {INR} [facility] Work Phone: Laboratory - Chemistry and C hemistry - challengeon 10-27-2021 CO2 [Moles/Vol] 21.0 mmol/L 21.0-32.0 [facility] Work Phone: Urea nitrogen/Creatinine [Mass ratio] 18.7 mg/mg 10-20 [facility] Work Phone: Laboratory - Coagulationon 0 10-27-2021 aPTT Coag (Bld) [Time] 31.8 s 24.1-36.2 breanna [facility] Work Phone: PT Coag (PPP) [Time] 14.1 s 11.7-14.[address] [facility] Work Phone: Laboratory - Hematology and Cell countson 10-27-2021 Erythrocyte distribution width (RBC) [Entitic vol] 66.9 fL 35.1-43.9 [facility] Work Phone: Erythrocyte distribution width (RBC) [Ratio] 18.5 % 11.6-14.6 [facility] Work Phone: Immature granulocytes/100 WBC (Bld) 0.400 % 0.0-0.9 [facility] Work Phone: Comment on above: IG% - Immature Granu locytes (promyelocytes, myelocytes and metamyelocytes) > 1% indicates that a LEFT SHIFT is Present. MCH (RBC) [Entitic mass] 32.2 pg 27.0-32.0 [facility] Work Phone: Nucleated RBC/100 WBC (Bld) [Ratio] 0 % 0-5 [facility] Work Phone: MCHC Auto (RBC) [Mass/Vol]on 10-27-2021 MCHC (RBC) [Mass/Vol] 32.8 g/dL 32-36 [facility] Work Phone: No Panel Informationon 10-27 Ethyl Alcohol Level 177.0 mg/dL [facility] Work Phone: Comment on above: The serum:whole bloo d ethanol ratio is approximately 1.14and varies slightly with hematocrit. Medical Alcohol reference interval and critical value innon-tolerant individuals; 50 - 100 Impairment 100 Intoxication 100 - 250 Severe Poisoning 250 - 400 Deep/possible fatal coma Estimated Creatinine Clearance Calc 45.78 ml/min [facility] Work Phone: Estimated GFR (MDRD) Amer 147 mL/min >60 [facility] Work Phone: Comment on above: GFR Calc Estimated GFR (MDRD) Non-Af Amer 121 mL/min >60 [facility] Work Phone: Comment on above: Non- GFR Calc Platelets bldon 10-27-2021 Platelets (Bld) [#/Vol] 273 10*3/uL 150-450 [facility] Work Phone: Serum or plasma calcium joaquin urement (mass/volume)on 10-27-2021 Calcium [Mass/Vol] 8.7 mg/dL 8.5-10.1 [facility] Work Phone: Serum or plasma creatinine m easurement (mass/volume)on 10-27-2021 Creatinine [Mass/Vol] 0.54 mg/dL 0.55-1.02 [facility] Work Phone: Comment on above: The validity of the calculated GFR & GFRAA in patients over 70 years has not been determined. Clinical correlation is essential. Serum or plasma urea nitroge n measurement (mass/volume)on 10-27-2021 Urea nitrogen [Mass/Vol] 10 mg/dL 7-18 [facility] Work Phone: Thin prep Papanicolaou smear with manual screeningon 10-27-2021 Thin prep Papanicolaou smear with manual screening 11 5-15 [facility] Work Phone: Laboratory - Hematology and Cell countson 09-11-2021 Anisocytosis Ql (Bld) 1+ [facility] Work Phone: Ovalocyte detectionon 2021 Ovalocytes LM Ql (Bld) RARE [facility] Blood platelet adequacy dete ction by light microscopyon 06-11-2021 Platelets LM Ql (Bld) ADEQUATE ADEQ [facility] [employer] mix RAST testo n 06-11-2021 Microcytosis 1+ [facility] Hypochromatic red blood cell detectionon 06-11-2021 Hypochromia Ql (Bld) 1+ [facility] Thin prep Papanicolaou smear with manual screeningon 06-11-2021 Thin prep Papanicolaou smear with manual screening 1+ [facility] Hemoglobin (Reticulocytes) [ Entitic mass]on 05-07-2021 Reticulocyte Hemoglobin Equivalent 21.9 pg Low 30-35 [facility] Hemoglobin in reticulocytes (mass per reticulocyte)on 05-07-2021 Hemoglobin (Reticulocytes) [Entitic mass] 21.9 pg Low 30-35 [facility] No Panel Informationon 05-07 Immature Reticulocyte Fraction 32.80 % High 3.00-15.90 [facility] Reticulocyte Count 1.57 % High 0.5-1.5 [facility] 1.57 % High 0.5-1.5 [facility] 32.80 % High 3.00-15.90 [facility] Glucose Meteron 10-21-2019 Glucose [Mass/Vol] 160 mg/dL High 70-99 [facility] Comment on above: Result Comment: TIARA Fischer OTIFIED Performed By: #### G LMET #### [facility] [address] [place] [address] Cult Urineon 10-08-2019 Cult Urine Test performed at [facility] ORGANISM: Normal Urogenital Hyun (ID: 1) 5,000-<10,000 CFU/ml Normal [facility] Comment on above: Performed By: #### C _URI #### [place] [address] Glucose Meteron 07-05-2019 Glucose [Mass/Vol] 175 mg/dL High 70-99 [facility] Comment on above: Performed By: #### G LMET #### [place] [address] Cult Urineon 06-29-2019 Cult Urine Test performed at [facility] ORGANISM: *Klebsiella pneumoniae (ID: 1) >100,000 CFU/ml CLSI breakpoints for therapy of uncomplicated UTI due to E. coli, K. pneumoniae or P. mirabilis were applied and may be used to predict the activity of oral agents (cefdinir, cefpodoxime, cefuroxime, and cephalexin). Normal [facility] Comment on above: Performed By: #### C _URI #### [place] [address] Cytology, Medicalon 04-23-20 Cytology, Medical Test performed at [place] [address] NAME: KAELYN POWERS REQUESTING: CALVIN DOHERTY M.D. DIAGNOSIS VOIDED URINE - NEGATIVE FOR HIGH GRADE UROTHELIAL CARCINOMA. PREDOMINANTLY SQUAMOUS CONTAMINANTS. SPECIMEN: A) URN, URINE CYTOLOGY VOIDED Description: Materials Prepared & Examined: Volume: ......... 25 # of Monolayers: .......... 1 Color: ............ Yellow # of Slides: ................. Clear: ............. Y 1 CLINICAL INFORMATION: MASS OF URETHRA. Electronically Signed: 04/26/2019 Screened by: ROD ARREDONDO([facility]) Signed Out by: IRAIDA BECK M.D. Printed on: April 26, 2019 Page 1 of 1 Normal [facility] Comment on above: Performed By: #### C YTOM #### [place] [address] BUN Bloodon 04-07-2019 Urea nitrogen [Mass/Vol] 12 mg/dL Normal 7-18 [facility] Comment on above: Performed By: #### M BUN #### [place] [address] Creatinine Bloodon 9 Creatinine [Mass/Vol] 0.54 mg/dL Normal 0.51-0.95 [facility] Comment on above: Performed By: #### M CREA #### [place] [address] MDRD eGFRon 04-07-2019 GFR/1.73 sq M predicted among non-blacks MDRD (S/P/Bld) [Vol rate/Area] mL/min/{1.73_m2} Normal >60mL/min/1.7 3m2 [facility] Comment on above: Result Comment: If t he patient is , multiply the result by 1.210. Performed By: #### M GFR #### [place] [address] MRI FEMALE URETHRA WO/W IVCO Non 04-07-2019 MRI FEMALE URETHRA WO/W IVCON * * *Final Report* * * DATE OF EXAM: Apr 07 2019 2:36PM [facility] 0716 - MRI FEMALE URETHRA WO/W IVCON [...] This study was tailored as a small lcvng-pl-flou study for evaluation of the female urethra. [...] Findings may be due to chronic inflammation. Baggage Handler: PSCB Transcribe Date/Time: Apr 14 2019 2:48P Dictated by : LETICIA GOMEZ MD This examination was interpreted and the report reviewed and electronically signed by: LETICIA GOMEZ MD on Apr 14 2019 3:18PM EST Normal [facility] Lab Report: Bilirubin, Direc ton 12-30-2016 Bilirubin.direct mass conc 0.13 mg/dL Invalid Interpretation Code 0.00-0.30 [facility] Work Phone: [phone] Lab Report: CBC W/Diff, Auto matedon 12-30-2016 Basophils/100 leukocytes 0.4 % Invalid Interpretation Code 0-1 [facility] Work Phone: [phone] Basophils/100 WBC (Bld) 0.4 % 0-1 [facility] Work Phone: [phone] Eosinophils/100 leukocytes 1.7 % Invalid Interpretation Code 0-5 [facility] Work Phone: [phone] Eosinophils/100 WBC (Bld) 1.7 % 0-5 [facility] Work Phone: [phone] Erythrocyte distribution width Ratio (RBC) 13.5 % 11.6-14.6 [facility] Work Phone: [phone] Erythrocyte distribution width Ratio (RBC) 46.4 fL High 35.1-43.9 [facility] Work Phone: [phone] Erythrocytes (RBC) 4.76 10*6/uL Invalid Interpretation Code 4.2-5.4 [facility] Work Phone: [phone] Hematocrit (HCT) 45.9 % Invalid Interpretation Code 37-47 [facility] Work Phone: [phone] Hematocrit Volume Fraction (Bld) 45.9 % 37-47 [facility] Work Phone: [phone] Hemoglobin mass conc (Bld) 15.6 g/dL High 12.0-15.0 [facility] Work Phone: [phone] Immature granulocytes #/vol (Bld) 0.200 % 0.0-0.9 [facility] Work Phone: [phone] immature granulocytes, percentage of total cells, blood 0.200 % Invalid Interpretation Code 0.0-0.9 [facility] Work Phone: [phone] Lymphocytes 2.32 X10 3/UL Invalid Interpretation Code 0.83-4.51 [facility] Work Phone: [phone] Lymphocytes #/vol (Bld) 2.32 X10 3/UL 0.83-4.51 [facility] Work Phone: [phone] Lymphocytes/100 leukocytes 27.6 % Invalid Interpretation Code 19-41 [facility] Work Phone: [phone] Lymphocytes/100 WBC (Bld) 27.6 % 19-41 [facility] Work Phone: [phone] MCH 32.8 pg High 27.0-32.0 [facility] Work Phone: [phone] MCH Entitic mass (RBC) 32.8 pg High 27.0-32.0 [facility] Work Phone: [phone] MCHC 34.0 G/GL Invalid Interpretation Code 32-36 [facility] Work Phone: [phone] MCHC mass conc (RBC) 34.0 G/GL 32-[address] [facility] Work Phone: [phone] MCV 96.4 fL Invalid Interpretation Code 81-99 [facility] Work Phone: [phone] MCV Entitic volume (RBC) 96.4 fL 81-99 [facility] Work Phone: [phone] Monocytes/100 leukocytes 9.1 % Invalid Interpretation Code 0-10 [facility] Work Phone: Monocytes/100 WBC (Bld) 9.1 % 0-10 [facility] Work Phone: [phone] neutrophil count, blood 5.1 X10 3/UL Invalid Interpretation Code 2.0-7.7 [facility] Work Phone: [phone] Neutrophils #/vol (Bld) 5.1 X10 3/UL 2.0-7.7 [facility] Work Phone: [phone] Neutrophils/100 leukocytes 61.0 % Invalid Interpretation Code 47-70 [facility] Work Phone: [phone] Neutrophils/100 WBC (Bld) 61.0 % 47-70 [facility] Work Phone: [phone] Platelet mean volume Entitic volume (Bld) 9.7 fL 6.2-12.0 [facility] Work Phone: [phone] Platelets 246 10*3/mm3 Invalid Interpretation Code 150-450 [facility] Work Phone: [phone] Platelets #/vol (Bld) 246 10*3/mm3 150-450 [facility] Work Phone: [phone] PMV by Bonnie 9.7 fL Invalid Interpretation Code 6.2-12.0 [facility] Work Phone: [phone] RBC #/vol (Bld) 4.76 10*6/uL 4.2-5.4 [facility] Work Phone: [phone] RDW-CA 13.5 % Invalid Interpretation Code 11.6-14.6 [facility] Work Phone: [phone] red blood cell distribution width, size density 46.4 fL High 35.1-43.9 [facility] Work Phone: [phone] WBC #/vol (Bld) 8.4 10*3/uL 4.4-11.0 [facility] Work Phone: [phone] WBC (Leukocytes) 8.4 10*3/uL Invalid Interpretation Code 4.4-11.0 [facility] Work Phone: [phone] Lab Report: [facility] 12-30-2016 Albumin mass conc 3.5 g/dL Invalid Interpretation Code 3.4-5.0 [facility] Work Phone: [phone] Albumin/Globulin mass ratio 1.1 {ratio} Invalid Interpretation Code 0.9-2.4 [facility] Work Phone: [phone] Alkaline phosphatase (ALP) 63 U/L Invalid Interpretation Code 45-117 [facility] Work Phone: [phone] ALP enzyme act/vol (Bld) 63 U/L 45-117 [facility] Work Phone: [phone] ALT enzyme act/vol 31 U/L Invalid Interpretation Code 12-78 [facility] Work Phone: [phone] Anion gap 11 mmol/L Invalid Interpretation Code -15 [facility] Work Phone: [phone] Anion gap molar conc 11 mmol/L - [facility] Work Phone: [phone] AST enzyme act/vol 24 U/L Invalid Interpretation Code 15-37 [facility] Work Phone: [phone] Bilirubin mass conc 0.40 mg/dL Invalid Interpretation Code 0.20-1.00 [facility] Work Phone: [phone] Calcium mass conc 8.4 mg/dL Low 8.5-10.1 [facility] Work Phone: [phone] Chloride molar conc 103 mmol/L Invalid Interpretation Code 98-107 [facility] Work Phone: [phone] CO2 25.0 mmol/L Invalid Interpretation Code 21.0-32.0 [facility] Work Phone: [phone] CO2 ppres (BldV) 25.0 mmol/L 21.0-32.0 [facility] Work Phone: [phone] Creatinine mass conc 0.66 mg/dL Invalid Interpretation Code 0.55-1.02 [facility] Work Phone: [phone] eGFR (non-black) 117 mL/min/{1.73_m2} Invalid Interpretation Code >60 [facility] Work Phone: [phone] EST GFR - AA 117 mL/min >60 [facility] Work Phone: 1 GFR/1.73 sq M predicted among non-blacks MDRD vol rate/area (S/P/Bld) 96 mL/min/{1.73_m2} Invalid Interpretation Code >60 [facility] Work Phone: [phone] Globulin 3.3 g/dL Invalid Interpretation Code 2.3-3.5 [facility] Work Phone: [phone] Globulin mass conc (S) 3.3 g/dL 2.3-3.5 [facility] Work Phone: [phone] Glucose 159 mg/dL High 70-110 [facility] Work Phone: [phone] Glucose mass conc 159 mg/dL High 70-110 [facility] Work Phone: [phone] Potassium molar conc 4.2 mmol/L Invalid Interpretation Code 3.5-5.1 [facility] Work Phone: [phone] Protein mass conc 6.8 g/dL Invalid Interpretation Code 6.4-8.2 [facility] Work Phone: [phone] Sodium molar conc 139 mmol/L Invalid Interpretation Code 136-145 [facility] Work Phone: [phone] Urea nitrogen mass conc 14 mg/dL Invalid Interpretation Code 7-18 [facility] Work Phone: [phone] Urea nitrogen/Creatinine mass ratio 21.2 RATIO High 10-20 [facility] Work Phone: [phone] Lab Report: Lipid Profileon 12-30-2016 Cholesterol in HDL mass conc 35 mg/dL Low [facility] Work Phone: [phone] Cholesterol in LDL mass conc 84 mg/dL Invalid Interpretation Code 0-130 [facility] Work Phone: [phone] Cholesterol mass conc 177 mg/dL Invalid Interpretation Code 200 [facility] Work Phone: [phone] Lipoprotein.pre-beta mass conc 58 mg/dL High 5-40 [facility] Work Phone: [phone] Triglyceride mass conc 292 mg/dL High [facility] Work Phone: [phone]) Lab Report: Urinalysis, Rout ine (Dipstick)on 12-30-2016 Albumin Ql (U) 100 High Negative [facility] Work Phone: [phone] Bilirubin Ql (U) Negative Negative [facility] Work Phone: [phone] Clarity Nom (U) Sl. Cloudy Invalid Interpretation Code Clear [facility] Work Phone: [phone] Color Nom (U) Yellow Invalid Interpretation Code Yellow [facility] Work Phone: [phone] Glucose Ql (U) Normal mg/dl Invalid Interpretation Code Normal [facility] Work Phone: [phone] Ketones mass conc (U) Negative Negative [facility] Work Phone: [phone] Leukocyte esterase Test strip Ql (U) 500 High Negative [facility] Work Phone: [phone] Nitrite Urine Negative Invalid Interpretation Code Negative [facility] Work Phone: [phone] Occult Blood, urine 150 High Negative [facility] Work Phone: [phone] OCCULT BLOOD-UR 150 High Negative [facility] Work Phone: [phone] pH (U) 6.0 [pH] 5.0 - 8.0 [facility] Work Phone: [phone] Specific gravity Refractometry Relative Density (U) 1.025 Invalid Interpretation Code 1.002-1.030 [facility] Work Phone: [phone] Urine, bilirubin presence Negative Invali d Interpretation Code Negative [facility] Work Phone: [phone] Urine, ketones presence Negative Invalid Interpretation Code Negative [facility] Work Phone: [phone] Urine, pH 6.0 [pH] Invalid Interpretation Code 5.0 - 8.0 [facility] Work Phone: [phone] Urine, protein 100 mg/dL High Negative [facility] Work Phone: [phone] urobilinogen, urine, by dipstick Normal mg/dl Invalid Interpretation Code Normal [facility] Work Phone: [phone] Lab Report: Vitamin D,25 Hyd roxyon 12-30-2016 vitamin D 25-hydroxy, serum 15.4 ng/mL Invalid Interpretation Code [facility] Work Phone: [phone] Vitamin D 25-OH 15.4 ng/mL [facility] Work Phone: [phone] Office Visiton 12-05-2016 Dietary management education, guidance, and counseling (procedure) yes Invalid Interpretation Code [facility] Work Phone: [phone] Documentation of current medications (procedure) Done Invalid Interpretation Code [facility] Work Phone: [phone] Protein mass conc Done [facility] Work Phone: [phone] Protein mass conc yes [facility] Work Phone: [phone] Smoking cessation education (procedure) yes Invalid Interpretation Code [facility] Work Phone: [phone] Tobacco smoking status NHIS Current every day smoker [facility] Work Phone: [phone] Tobacco use CPHS Current every day smoker Invalid Interpretation Code [facility] Work Phone: [phone] Office Visiton 10-18-2015 cardiac risk group C Invalid Interpretation Code [facility] Work Phone: [phone] General cardiovascular disease 10Y risk [#] [place] N/A Invalid Interpretation Code [facility] Work Phone: [phone] Clinical Lists Update: Prelo director of exhibits 10-17-2015 Anion gap molar conc 5 mmol/L [facility] Work Phone: [phone] Calcium mass conc 8.2 mg/dL Low [facility] Work Phone: [phone] Chloride molar conc 107 mmol/L [facility] Work Phone: [phone] CO2 ppres (BldV) 27 mmol/L [facility] Work Phone: [phone] Creatinine mass conc 0.68 mg/dL [facility] Work Phone: [phone] Glucose mass conc 147 mg/dL High [facility] Work Phone: [phone] Potassium molar conc 4.2 mmol/L [facility] Work Phone: [phone] Sodium molar conc 139 mmol/L [facility] Work Phone: [phone] Urea nitrogen mass conc 11 mg/dL [facility] Work Phone: [phone] Urea nitrogen/Creatinine mass ratio 16.2 mg/mg [facility] Work Phone: [phone] Clinical Lists Update: Prelo director of exhibits 10-09-2015 Cholesterol in HDL mass conc 34 mg/dL [facility] Work Phone: [phone] Cholesterol mass conc 185 mg/dL [facility] Work Phone: [phone] Left ventricular Ejection fraction 65 % Invalid Interpretation Code [facility] Work Phone: [phone] Triglyceride mass conc 452 mg/dL [facility] Work Phone: [phone] Culture, urine Bacteria identified Cx Nom (U) Pseudomonas aeroginosa [facility] Work Phone: Bacteria identified Cx Nom (U) Presumptive E. coli [facility] Work Phone: Vital Signs Date Time Vital Sign Value Performing Clinician Faci lity 06-07-2025 11:00-0400 Body height 154.[address] Sharif Christianson MD Work Phone: [facility] 06-07-2025 11:00-0400 Body mass index (BMI) [Ratio] 35 kg/m2 Dr. Sharif Christianson MD Work Phone: [facility] 06-07-2025 11:00-0400 Body temperature 98 [degF] Dr. Sharif Christianson MD Work Phone: [facility] 06-07-2025 11:00-0400 Body weight 84.[address] Sharif Christianson MD Work Phone: [facility] 06-07-2025 11:00-0400 Diastolic blood pressure 73 mm[Hg] Dr. Sharif Christianson MD Work Phone: [facility] 06-07-2025 11:00-0400 Heart rate 67 /min Dr. Sharif Christianson MD Work Phone: [facility] 06-07-2025 11:00-0400 Respiratory rate 18 /min Dr. Sharif Christianson MD Work Phone: [facility] 06-07-2025 11:00-0400 SaO2% (BldA) [Mass fraction] 95 % Dr. Sharif Christianson MD Work Phone: [phone])[phone] [place] [address] 06-07-2025 11:00-0400 Systolic blood pressure 117 mm[Hg] Dr. Sharif Christianson MD Work Phone: 9(046)827-864414 [place] [address] 06-01-2025 14:22-0400 Body temperature 97.8 [degF] Dr. Sharif Christianson MD Work Phone: 6(810)597-905814 [place] [address] 06-01-2025 14:22-0400 Body weight 86.[address] Sharif Christianson MD Work Phone: 3(761)510-487014 [place] [address] 06-01-2025 14:22-0400 Diastolic blood pressure 68 mm[Hg] Dr. Sharif Christianson MD Work Phone: 5(424)897-607814 [place] [address] 06-01-2025 14:22-0400 Heart rate 76 /min Dr. Sharif Christianson MD Work Phone: 9(002)322-401914 [place] [address] 06-01-2025 14:22-0400 Respiratory rate 14 /min Dr. Sharif Christianson MD Work Phone: 0(701)126-796614 [place] [address] 06-01-2025 14:22-0400 SaO2% (BldA) [Mass fraction] 97 % Dr. Sharif Christianson MD Work Phone: 1(510)359-273814 [place] [address] 06-01-2025 14:22-0400 Systolic blood pressure 113 mm[Hg] Dr. Sharif Christianson MD Work Phone: 2(327)403-317464 [place] [address] 05-17-2025 13:13-0400 Body height 154.[address] Sharif Christianson MD Work Phone: 6(732)604-612314 [place] [address] 05-17-2025 13:09-0400 Body mass index (BMI) [Ratio] 35.6 kg/m2 Dr. Sharif Christianson MD Work Phone: 5(060)799-360014 [place] [address] 05-17-2025 13:09-0400 Body temperature 97.6 [degF] Dr. Sharif Christianson MD Work Phone: 7(210)549-961714 [place] [address] 05-17-2025 13:09-0400 Body weight 85.[address] Sharif Christianson MD Work Phone: 7(119)387-128914 [place] [address] 05-17-2025 13:09-0400 Diastolic blood pressure 71 mm[Hg] Dr. Sharif Christianson MD Work Phone: 6(827)593-352314 [place] [address] 05-17-2025 13:09-0400 Heart rate 67 /min Dr. Sharif Christianson MD Work Phone: 0(314)416-701814 [place] [address] 05-17-2025 13:09-0400 Respiratory rate 16 /min Dr. Sharif Christianson MD Work Phone: 9(053)775-857114 [place] [address] 05-17-2025 13:09-0400 SaO2% (BldA) [Mass fraction] 94 % Dr. Sharif Christianson MD Work Phone: 4(299)990-470614 [place] [address] 05-17-2025 13:09-0400 Systolic blood pressure 118 mm[Hg] Dr. Sharif Christianson MD Work Phone: 9(676)074-308914 [place] [address] 04-26-2025 10:59-0400 Body height 154.[address] Sharif Christianson MD Work Phone: 2(136)256-562514 [place] [address] 04-26-2025 10:59-0400 Body mass index (BMI) [Ratio] 35 kg/m2 Dr. Shraif Christianson MD Work Phone: 9(760)242-097214 [place] [address] 04-26-2025 10:59-0400 Body temperature 97.8 [degF] Dr. Sharif Christianson MD Work Phone: 8(328)797-168814 [place] [address] 04-26-2025 10:59-0400 Body weight 84.[address] Sharif Christianson MD Work Phone: 9(870)329-877614 [place] [address] 04-26-2025 10:59-0400 Diastolic blood pressure 67 mm[Hg] Dr. Sharif Christianson MD Work Phone: 2(160)495-081814 [place] [address] 04-26-2025 10:59-0400 Heart rate 63 /min Dr. Sharif Christianson MD Work Phone: 0(227)739-998214 [place] [address] 04-26-2025 10:59-0400 Respiratory rate 16 /min Dr. Sharif Christianson MD Work Phone: 8(142)385-239814 [place] [address] 04-26-2025 10:59-0400 SaO2% (BldA) [Mass fraction] 96 % Dr. Sharif Christianson MD Work Phone: 5(287)450-399714 [place] [address] 04-26-2025 10:59-0400 Systolic blood pressure 106 mm[Hg] Dr. Sharif Christianson MD Work Phone: 8(516)875-805614 [place] [address] 04-05-2025 15:14-0400 Diastolic blood pressure 51 mm[Hg] Dr. Sharif Christianson MD Work Phone: 3(877)181-631014 [place] [address] 04-05-2025 15:14-0400 Heart rate 67 /min Dr. Sharif Christianson MD Work Phone: 8(983)983-448714 [place] [address] 04-05-2025 15:14-0400 Respiratory rate 16 /min Dr. Sharif Christianson MD Work Phone: 6(455)172-188814 [place] [address] 04-05-2025 15:14-0400 Systolic blood pressure 118 mm[Hg] Dr. Sharif Christianson MD Work Phone: 0(589)763-088314 [place] [address] 04-05-2025 12:31-0400 Body height 154.[address] Sharif Christianson MD Work Phone: 5(478)613-360014 [place] [address] 04-05-2025 12:31-0400 Body mass index (BMI) [Ratio] 35.7 kg/m2 Dr. Sharif Christianson MD Work Phone: 3(358)145-590214 [place] [address] 04-05-2025 12:31-0400 Body temperature 97.8 [degF] Dr. Sharif Christianson MD Work Phone: 6(602)294-978614 [place] [address] 04-05-2025 12:31-0400 Body weight 85.[address] Sharif Christianson MD Work Phone: 1(552)380-625214 [place] [address] 04-05-2025 12:31-0400 Diastolic blood pressure 74 mm[Hg] Dr. Sharif Christianson MD Work Phone: [facility] 04-05-2025 12:31-0400 Heart rate 69 /min Dr. Sharif Christianson MD Work Phone: 4(643)354-057564 [place] [address] 04-05-2025 12:31-0400 Respiratory rate 16 /min Dr. Sharif Christianson MD Work Phone: 7(596)609-372414 [place] [address] 04-05-2025 12:31-0400 SaO2% (BldA) [Mass fraction] 95 % Dr. Sharif Christianson MD Work Phone: 5(118)750-550614 [place] [address] 04-05-2025 12:31-0400 Systolic blood pressure 120 mm[Hg] Dr. Sharif Christianson MD Work Phone: 1(311)027-524914 [place] [address] 04-05-2025 10:45-0400 Body height 154.[address] Sharif Christianson MD Work Phone: 5(955)542-586314 [place] [address] 04-05-2025 10:45-0400 Body mass index (BMI) [Ratio] 35.9 kg/m2 Dr. Sharif Christianson MD Work Phone: 2(482)355-595914 [place] [address] 04-05-2025 10:45-0400 Body weight 86.[address] Sharif Christianson MD Work Phone: 4(291)971-143314 [place] [address] 04-05-2025 10:45-0400 Diastolic blood pressure 60 mm[Hg] Dr. Sharif Christianson MD Work Phone: 6(824)610-855014 [place] [address] 04-05-2025 10:45-0400 Heart rate 67 /min Dr. Sharif Christianson MD Work Phone: 4(450)253-114764 [place] [address] 04-05-2025 10:45-0400 Respiratory rate 16 /min Dr. Sharif Christianson MD Work Phone: 6(306)845-144314 [place] [address] 04-05-2025 10:45-0400 Systolic blood pressure 108 mm[Hg] Dr. Sharif Christianson MD Work Phone: 4(897)309-892214 [place] [address] 03-15-2025 11:54-0400 Body height 154.[address] Sharif Christianson MD Work Phone: [facility] 03-15-2025 11:54-0400 Body mass index (BMI) [Ratio] 35.5 kg/m2 Dr. Sharif Christianson MD Work Phone: [facility] 03-15-2025 11:54-0400 Body temperature 98.3 [degF] Dr. Sharif Christianson MD Work Phone: [facility] 03-15-2025 11:54-0400 Body weight 85.[address] Sharif Christianson MD Work Phone: [facility] 03-15-2025 11:54-0400 Diastolic blood pressure 76 mm[Hg] Dr. Sharif Christianson MD Work Phone: [facility] 03-15-2025 11:54-0400 Heart rate 75 /min Dr. Sharif Christianson MD Work Phone: [facility] 03-15-2025 11:54-0400 Respiratory rate 18 /min Dr. Sharif Christianson MD Work Phone: [facility] 03-15-2025 11:54-0400 SaO2% (BldA) [Mass fraction] 97 % Dr. Sharif Christianson MD Work Phone: [facility] 03-15-2025 11:54-0400 Systolic blood pressure 144 mm[Hg] Dr. Sharif Christianson MD Work Phone: [facility] 03-08-2025 10:25-0400 Body temperature 97.8 [degF] Dr. Sharif Christianson MD Work Phone: [facility] 03-08-2025 10:25-0400 Body weight 84.[address] Sharif Christianson MD Work Phone: [facility] 03-08-2025 10:25-0400 Diastolic blood pressure 66 mm[Hg] Dr. Sharif Christianson MD Work Phone: [facility] 03-08-2025 10:25-0400 Heart rate 65 /min Dr. Sharif Christianson MD Work Phone: [facility] 03-08-2025 10:25-0400 Respiratory rate 14 /min Dr. Sharif Christianson MD Work Phone: [facility] 03-08-2025 10:25-0400 SaO2% (BldA) [Mass fraction] 99 % Dr. Sharif Christianson MD Work Phone: 3(734)564-007964 [place] [address] 03-08-2025 10:25-0400 Systolic blood pressure 132 mm[Hg] Dr. Sharif Christianson MD Work Phone: 5(518)300-411164 [place] [address] 02-22-2025 13:12-0400 Body temperature 96.3 [degF] Dr. Sharif Christianson MD Work Phone: 7(516)107-350516 [address] 02-22-2025 13:12-0400 Diastolic blood pressure 56 mm[Hg] Dr. Sharif Christianson MD Work Phone: 4(322)510-317864 [place] [address] 02-22-2025 13:12-0400 Heart rate 61 /min Dr. Sharif Christianson MD Work Phone: 2(112)890-142016 [address] 02-22-2025 13:12-0400 Respiratory rate 16 /min Dr. Sharif Christianson MD Work Phone: 7(832)987-581216 [address] 02-22-2025 13:12-0400 Systolic blood pressure 102 mm[Hg] Dr. Sharif Christianson MD Work Phone: 5(309)500-950264 [place] [address] 02-22-2025 10:39-0400 Body height 154.[address] Sharif Christianson MD Work Phone: [facility] 02-22-2025 10:39-0400 Body mass index (BMI) [Ratio] 35.4 kg/m2 Dr. Sharif Christianson MD Work Phone: 2(911)357-006164 [place] [address] 02-22-2025 10:39-0400 Body temperature 98.1 [degF] Dr. Sharif Christianson MD Work Phone: 8(108)987-342416 [address] 02-22-2025 10:39-0400 Body weight 84.[address] Sharif Christianson MD Work Phone: [facility] 02-22-2025 10:39-0400 Diastolic blood pressure 70 mm[Hg] Dr. Sharif Christianson MD Work Phone: [facility] 02-22-2025 10:39-0400 Heart rate 59 /min Dr. Sharif Christianson MD Work Phone: 3(773)365-277464 [place] [address] 02-22-2025 10:39-0400 Respiratory rate 18 /min Dr. Sharif Christianson MD Work Phone: [facility] 02-22-2025 10:39-0400 SaO2% (BldA) [Mass fraction] 98 % Dr. Sharif Christianson MD Work Phone: [facility] 02-22-2025 10:39-0400 Systolic blood pressure 113 mm[Hg] Dr. Sharif Christianson MD Work Phone: 6(515)389-279564 [place] [address] 01-25-2025 13:16-0400 Body height 154.[address] Sharif Christianson MD Work Phone: 7(935)955-303916 [address] 01-25-2025 13:16-0400 Body mass index (BMI) [Ratio] 35.6 kg/m2 Dr. Sharif Christianson MD Work Phone: [facility] 01-25-2025 13:16-0400 Body temperature 97.7 [degF] Dr. Sharif Christianson MD Work Phone: [facility] 01-25-2025 13:16-0400 Body weight 85.[address] Sharif Christianson MD Work Phone: [facility] 01-25-2025 13:16-0400 Diastolic blood pressure 76 mm[Hg] Dr. Sharif Christianson MD Work Phone: [facility] 01-25-2025 13:16-0400 Heart rate 64 /min Dr. Sharif Christianson MD Work Phone: [facility] 01-25-2025 13:16-0400 Respiratory rate 16 /min Dr. Sharif Christianson MD Work Phone: [facility] 01-25-2025 13:16-0400 SaO2% (BldA) [Mass fraction] 96 % Dr. Sharif Christianson MD Work Phone: [facility] 01-25-2025 13:16-0400 Systolic blood pressure 127 mm[Hg] Dr. Sharif Christianson MD Work Phone: 9(087)253-696164 [place] [address] 01-04-2025 13:16-0400 Body height 154.[address] Sharif Christianson MD Work Phone: 0(512)580-968114 [place] [address] 01-04-2025 13:16-0400 Body mass index (BMI) [Ratio] 35 kg/m2 Dr. Sharif Christianson MD Work Phone: 4(254)804-661114 [place] [address] 01-04-2025 13:16-0400 Body temperature 97.2 [degF] Dr. Sharif Christianson MD Work Phone: 5(424)820-365314 [place] [address] 01-04-2025 13:16-0400 Body weight 84.[address] Sharif Christianson MD Work Phone: 8(252)518-346816 [address] 01-04-2025 13:16-0400 Diastolic blood pressure 69 mm[Hg] Dr. Sharif Christianson MD Work Phone: 0(550)729-141364 [place] [address] 01-04-2025 13:16-0400 Heart rate 64 /min Dr. Sharif Christianson MD Work Phone: [facility] 01-04-2025 13:16-0400 Respiratory rate 16 /min Dr. Sharif Christianson MD Work Phone: [facility] 01-04-2025 13:16-0400 SaO2% (BldA) [Mass fraction] 94 % Dr. Sharif Christianson MD Work Phone: [facility] 01-04-2025 13:16-0400 Systolic blood pressure 114 mm[Hg] Dr. Sharif Christianson MD Work Phone: 9(033)420-523264 [place] [address] 12-14-2024 10:41-0400 Body mass index (BMI) [Ratio] 34.2 kg/m2 Dr. Sharif Christianson MD Work Phone: [facility] 12-14-2024 10:41-0400 Body temperature 96.6 [degF] Dr. Sharif Christianson MD Work Phone: [facility] 12-14-2024 10:41-0400 Body weight 82.[address] Sharif Christianson MD Work Phone: [facility] 12-14-2024 10:41-0400 Diastolic blood pressure 73 mm[Hg] Dr. Sharif Christianson MD Work Phone: 3(271)488-297564 [place] [address] 12-14-2024 10:41-0400 Heart rate 69 /min Dr. Sharif Christianson MD Work Phone: 8(658)251-129464 [place] [address] 12-14-2024 10:41-0400 Respiratory rate 16 /min Dr. Sharif Christianson MD Work Phone: 3(806)444-802964 [place] [address] 12-14-2024 10:41-0400 SaO2% (BldA) [Mass fraction] 96 % Dr. Sharif Christianson MD Work Phone: [facility] 12-14-2024 10:41-0400 Systolic blood pressure 128 mm[Hg] Dr. Sharif Christianson MD Work Phone: [facility] 11-23-2024 09:28-0400 Body height 154.[address] Sharif Christianson MD Work Phone: [facility] 11-23-2024 09:28-0400 Body mass index (BMI) [Ratio] 34.1 kg/m2 Dr. Sharif Christianson MD Work Phone: [facility] 11-23-2024 09:28-0400 Body temperature 97.2 [degF] Dr. Sharif Christianson MD Work Phone: [facility] 11-23-2024 09:28-0400 Body weight 81.[address] Sharif Christianson MD Work Phone: [facility] 11-23-2024 09:28-0400 Diastolic blood pressure 68 mm[Hg] Dr. Sharif Christianson MD Work Phone: [facility] 11-23-2024 09:28-0400 Heart rate 71 /min Dr. Sharif Christianson MD Work Phone: [facility] 11-23-2024 09:28-0400 Respiratory rate 16 /min Dr. Sharif Christianson MD Work Phone: 4(566)814-018864 [place] [address] 11-23-2024 09:28-0400 SaO2% (BldA) [Mass fraction] 97 % Dr. Sharif Christianson MD Work Phone: 7(153)825-780964 [place] [address] 11-23-2024 09:28-0400 Systolic blood pressure 119 mm[Hg] Dr. Sharif Christianson MD Work Phone: 0(792)140-457314 [place] [address] 11-10-2024 13:17-0400 Body temperature 98.2 [degF] Dr. Sharif Christianson MD Work Phone: 3(143)448-684764 [place] [address] 11-10-2024 13:17-0400 Body weight [address] Sharif Christianson MD Work Phone: 0(296)573-034914 [place] [address] 11-10-2024 13:17-0400 Diastolic blood pressure 72 mm[Hg] Dr. Sharif Christianson MD Work Phone: 6(497)845-136564 [place] [address] 11-10-2024 13:17-0400 Heart rate 74 /min Dr. Sharif Christianson MD Work Phone: 7(058)607-012364 [place] [address] 11-10-2024 13:17-0400 Respiratory rate 18 /min Dr. Sharif Christianson MD Work Phone: 8(755)052-254264 [place] [address] 11-10-2024 13:17-0400 SaO2% (BldA) [Mass fraction] 97 % Dr. Sharif Christianson MD Work Phone: 0(607)317-671064 [place] [address] 11-10-2024 13:17-0400 Systolic blood pressure 122 mm[Hg] Dr. Sharif Christianson MD Work Phone: 5(478)948-290464 [place] [address] 11-02-2024 13:26-0400 Diastolic blood pressure 61 mm[Hg] Dr. Sharif Christianson MD Work Phone: [facility] 11-02-2024 13:26-0400 Systolic blood pressure 140 mm[Hg] Dr. Sharif Christianson MD Work Phone: [facility] 11-02-2024 10:11-0400 Body mass index (BMI) [Ratio] 34.2 kg/m2 Dr. Sharif Christianson MD Work Phone: [facility] 11-02-2024 10:11-0400 Body temperature 97.9 [degF] Dr. Sharif Christianson MD Work Phone: 0(075)145-219964 [place] [address] 11-02-2024 10:11-0400 Body weight 82.[address] Sharif Christianson MD Work Phone: 0(801)214-601664 [place] [address] 11-02-2024 10:11-0400 Diastolic blood pressure 73 mm[Hg] Dr. Sharif Christianson MD Work Phone: [facility] 11-02-2024 10:11-0400 Heart rate 69 /min Dr. Sharif Christianson MD Work Phone: [facility] 11-02-2024 10:11-0400 Respiratory rate 16 /min Dr. Sharif Christianson MD Work Phone: 5(385)739-689664 [place] [address] 11-02-2024 10:11-0400 SaO2% (BldA) [Mass fraction] 95 % Dr. Sharif Christianson MD Work Phone: [facility] 11-02-2024 10:11-0400 Systolic blood pressure 118 mm[Hg] Dr. Sharif Christianson MD Work Phone: [facility] 10-12-2024 13:12-0500 Body temperature 97.1 [degF] Dr. Sharif Christianson MD Work Phone: [facility] 10-12-2024 13:12-0500 Heart rate 61 /min Dr. Sharif Christianson MD Work Phone: 7(776)448-172514 [place] [address] 10-12-2024 13:12-0500 Respiratory rate 16 /min Dr. Sharif Christianson MD Work Phone: 9(257)056-017414 [place] [address] 10-12-2024 13:12-0500 SaO2% (BldA) [Mass fraction] 97 % Dr. Sharif Christianson MD Work Phone: 6(974)142-953114 [place] [address] 10-12-2024 10:18-0500 Body mass index (BMI) [Ratio] 34.9 kg/m2 Dr. Sharif Christianson MD Work Phone: 6(883)515-295914 [place] [address] 10-12-2024 10:18-0500 Body temperature 96.9 [degF] Dr. Sharif Christianson MD Work Phone: 3(336)081-637914 [place] [address] 10-12-2024 10:18-0500 Body weight 84.[address] Sharif Christianson MD Work Phone: 0(095)309-451914 [place] [address] 10-12-2024 10:18-0500 Diastolic blood pressure 73 mm[Hg] Dr. Sharif Christianson MD Work Phone: 1(476)364-880714 [place] [address] 10-12-2024 10:18-0500 Heart rate 71 /min Dr. Sharif Christianson MD Work Phone: 7(255)268-934714 [place] [address] 10-12-2024 10:18-0500 Respiratory rate 16 /min Dr. Sharif Christianson MD Work Phone: 2(961)368-671814 [place] [address] 10-12-2024 10:18-0500 SaO2% (BldA) [Mass fraction] 94 % Dr. Sharif Christianson MD Work Phone: 5(053)174-247764 [place] [address] 10-12-2024 10:18-0500 Systolic blood pressure 150 mm[Hg] Dr. Sharif Christianson MD Work Phone: 2(974)980-879414 [place] [address] 09-21-2024 08:01-0500 Body mass index (BMI) [Ratio] 35 kg/m2 Dr. Sharif Christianson MD Work Phone: 9(744)811-762714 [place] [address] 09-21-2024 08:01-0500 Body temperature 97.9 [degF] Dr. Sharif Christianson MD Work Phone: [facility] 09-21-2024 08:01-0500 Body weight 84.[address] Sharif Christianson MD Work Phone: [facility] 09-21-2024 08:01-0500 Diastolic blood pressure 82 mm[Hg] Dr. Sharif Christianson MD Work Phone: 5(578)293-688164 [place] [address] 09-21-2024 08:01-0500 Heart rate 62 /min Dr. Sharif Christianson MD Work Phone: 5(375)585-060764 [place] [address] 09-21-2024 08:01-0500 Respiratory rate 18 /min Dr. Sharif Christianson MD Work Phone: 2(823)152-550614 [place] [address] 09-21-2024 08:01-0500 SaO2% (BldA) [Mass fraction] 93 % Dr. Sharif Christianson MD Work Phone: 3(475)143-803264 [place] [address] 09-21-2024 08:01-0500 Systolic blood pressure 142 mm[Hg] Dr. Sharif Christianson MD Work Phone: 7(563)707-137816 [address] 09-06-2024 14:37-0500 Body mass index (BMI) [Ratio] 35.4 kg/m2 Dr. Sharif Christianson MD Work Phone: 4(463)336-475616 [address] 09-06-2024 14:37-0500 Body temperature 97.4 [degF] Dr. Sharif Christianson MD Work Phone: 3(849)882-408364 [place] [address] 09-06-2024 14:37-0500 Body weight 84.[address] Sharif Christianson MD Work Phone: 1(895)249-035116 [address] 09-06-2024 14:37-0500 Diastolic blood pressure 80 mm[Hg] Dr. Sharif Christianson MD Work Phone: 8(459)106-211714 [place] [address] 09-06-2024 14:37-0500 Heart rate 79 /min Dr. Sharif Christianson MD Work Phone: 6(798)751-123616 [address] 09-06-2024 14:37-0500 Respiratory rate 18 /min Dr. Sharif Christianson MD Work Phone: [facility] 09-06-2024 14:37-0500 SaO2% (BldA) [Mass fraction] 96 % Dr. Sharif Christianson MD Work Phone: 8(804)745-345464 [place] [address] 09-06-2024 14:37-0500 Systolic blood pressure 137 mm[Hg] Dr. Sharif Christianson MD Work Phone: 5(532)081-270516 [address] 08-31-2024 08:05-0500 Body mass index (BMI) [Ratio] 36.1 kg/m2 Dr. Sharif Christianson MD Work Phone: 1(688)638-916914 [place] [address] 08-31-2024 08:05-0500 Body weight 86.[address] Sharif Christianson MD Work Phone: 7(419)864-429014 [place] [address] 08-31-2024 08:05-0500 Diastolic blood pressure 73 mm[Hg] Dr. Sharif Christianson MD Work Phone: 7(799)495-390214 [place] [address] 08-31-2024 08:05-0500 Heart rate 68 /min Dr. Sharif Christianson MD Work Phone: 7(545)963-880614 [place] [address] 08-31-2024 08:05-0500 Respiratory rate 20 /min Dr. Sharif Christianson MD Work Phone: 8(727)627-406414 [place] [address] 08-31-2024 08:05-0500 SaO2% (BldA) [Mass fraction] 93 % Dr. Sharif Christianson MD Work Phone: 6(162)224-764516 [address] 08-31-2024 08:05-0500 Systolic blood pressure 129 mm[Hg] Dr. Sharif Christianson MD Work Phone: 3(429)520-512514 [place] [address] 08-16-2024 09:47-0500 Body mass index (BMI) [Ratio] 35.6 kg/m2 Dr. Sharif Christianson MD Work Phone: 6(705)135-222414 [place] [address] 08-09-2024 10:33-0500 Body mass index (BMI) [Ratio] 35 kg/m2 Dr. Sharif Christianson MD Work Phone: 1(980)499-892814 [place] [address] 08-09-2024 10:33-0500 Body temperature 97.6 [degF] Dr. Sharif Christianson MD Work Phone: 3(617)827-212364 [place] [address] 08-09-2024 10:33-0500 Body weight 86.[address] Sharif Christianson MD Work Phone: 8(400)688-229064 [place] [address] 08-09-2024 10:33-0500 Diastolic blood pressure 83 mm[Hg] Dr. Sharif Christianson MD Work Phone: 6(645)890-437164 [place] [address] 08-09-2024 10:33-0500 Heart rate 67 /min Dr. Sharif Christianson MD Work Phone: 2(211)503-870514 [place] [address] 08-09-2024 10:33-0500 Respiratory rate 18 /min Dr. Sharif Christianson MD Work Phone: 1(201)483-431014 [place] [address] 08-09-2024 10:33-0500 SaO2% (BldA) [Mass fraction] 95 % Dr. Sahrif Christianson MD Work Phone: 6(265)585-494864 [place] [address] 08-09-2024 10:33-0500 Systolic blood pressure 156 mm[Hg] Dr. Sharif Christianson MD Work Phone: 8(721)052-808864 [place] [address] 12-08-2023 14:34-0400 Body height 157.[address] Sharif Christianson Work Phone: 5(305)048-931464 [place] [address] 12-08-2023 14:34-0400 Body mass index (BMI) [Ratio] 33.1 kg/m2 Dr. Sharif Christianson Work Phone: 1(685)366-829164 [place] [address] 12-08-2023 14:34-0400 Body temperature 97.3 [degF] Dr. Sharif Christianson Work Phone: 6(075)914-454864 [place] [address] 12-08-2023 14:34-0400 Body weight 82.[address] Sharif Christianson Work Phone: [facility] 12-08-2023 14:34-0400 Diastolic blood pressure 75 mm[Hg] Dr. Sharif Christianson Work Phone: [facility] 12-08-2023 14:34-0400 Heart rate 75 /min Dr. Sharif Christianson Work Phone: [facility] 12-08-2023 14:34-0400 Respiratory rate 18 /min Dr. Sharif Christianson Work Phone: [facility] 12-08-2023 14:34-0400 SaO2% (BldA) [Mass fraction] 97 % Dr. Sharif Christianson Work Phone: [facility] 12-08-2023 14:34-0400 Systolic blood pressure 121 mm[Hg] Dr. Sharif Christianson Work Phone: [facility] 11-03-2023 14:30-0400 Body height 157.[address] Sharif Christianson Work Phone: [facility] 11-03-2023 14:30-0400 Body mass index (BMI) [Ratio] 34.4 kg/m2 Dr. Sharif Christianson Work Phone: [facility] 11-03-2023 14:30-0400 Body temperature 97.9 [degF] Dr. Sharif Christianson Work Phone: [facility] 11-03-2023 14:30-0400 Body weight 85.[address] Sharif Christianson Work Phone: [facility] 11-03-2023 14:30-0400 Diastolic blood pressure 67 mm[Hg] Dr. Sharif Christianson Work Phone: [facility] 11-03-2023 14:30-0400 Heart rate 87 /min Dr. Sharif Christianson Work Phone: [facility] 11-03-2023 14:30-0400 Respiratory rate 16 /min Dr. Sharif Christianson Work Phone: [facility] 11-03-2023 14:30-0400 SaO2% (BldA) [Mass fraction] 98 % Dr. Sharif Christianson Work Phone: [facility] 11-03-2023 14:30-0400 Systolic blood pressure 133 mm[Hg] Dr. Sharif Christianson Work Phone: [facility] 10-30-2023 09:26-0400 Body mass index (BMI) [Ratio] 34.4 kg/m2 Dr. Sharif Christianson Work Phone: [facility] 10-30-2023 09:26-0400 Body temperature 97.6 [degF] Dr. Sharif Christianson Work Phone: [facility] 10-30-2023 09:26-0400 Body weight 85.[address] Sharif Christianson Work Phone: [facility] 10-30-2023 09:26-0400 Diastolic blood pressure 72 mm[Hg] Dr. Sharif Christianson Work Phone: [facility] 10-30-2023 09:26-0400 Heart rate 73 /min Dr. Sharif Christianson Work Phone: [facility] 10-30-2023 09:26-0400 Respiratory rate 18 /min Dr. Sharif Christianson Work Phone: [facility] 10-30-2023 09:26-0400 SaO2% (BldA) [Mass fraction] 96 % Dr. Sharif Christianson Work Phone: [facility] 10-30-2023 09:26-0400 Systolic blood pressure 116 mm[Hg] Dr. Sharif Christianson Work Phone: [facility] 10-06-2023 15:05-0500 Body mass index (BMI) [Ratio] 34.2 kg/m2 Dr. Sharif Christianson Work Phone: [facility] 10-06-2023 15:05-0500 Body temperature 96.9 [degF] Dr. Sharif Christianson Work Phone: [facility] 10-06-2023 15:05-0500 Body weight 84.[address] Sharif Christianson Work Phone: [facility] 10-06-2023 15:05-0500 Diastolic blood pressure 75 mm[Hg] Dr. Sharif Christianson Work Phone: [facility] 10-06-2023 15:05-0500 Heart rate 72 /min Dr. Sharif Christianson Work Phone: [facility] 10-06-2023 15:05-0500 Respiratory rate 18 /min Dr. Sharif Christianson Work Phone: [facility] 10-06-2023 15:05-0500 SaO2% (BldA) [Mass fraction] 94 % Dr. Sharif Christianson Work Phone: [facility] 10-06-2023 15:05-0500 Systolic blood pressure 112 mm[Hg] Dr. Sharif Christianson Work Phone: [facility] 10-06-2023 14:25-0500 Body mass index (BMI) [Ratio] 34.2 kg/m2 Dr. Sharif Christianson Work Phone: [facility] 10-06-2023 14:25-0500 Body temperature 96.9 [degF] Dr. Sharif Christianson Work Phone: [facility] [facility] 10-06-2023 14:25-0500 Body weight 84.[address] Sharif Christianson Work Phone: [facility] 10-06-2023 14:25-0500 Diastolic blood pressure 75 mm[Hg] Dr. Sharif Christianson Work Phone: [facility] 10-06-2023 14:25-0500 Heart rate 72 /min Dr. Sharif Christianson Work Phone: [facility] 10-06-2023 14:25-0500 Respiratory rate 18 /min Dr. Sharif Christianson Work Phone: [facility] 10-06-2023 14:25-0500 SaO2% (BldA) [Mass fraction] 94 % Dr. Sharif Christianson Work Phone: [facility] 10-06-2023 14:25-0500 Systolic blood pressure 112 mm[Hg] Dr. Sharif Christianson Work Phone: [facility] 09-09-2023 10:50-0500 Body height 157.48 cm [employer] Iris Clayton Work Phone: [facility] 09-09-2023 10:50-0500 Body mass index (BMI) [Ratio] 33.6 kg/m2 [employer] Iris Clayton Work Phone: [facility] 09-09-2023 10:50-0500 Body temperature 97.6 [degF] [employer] T[employer]ER-C Irisesther Clayton Work Phone: [facility] 09-09-2023 10:50-0500 Body weight 83.51 kg [employer] Iris Clayton Work Phone: [facility] 09-09-2023 10:50-0500 Diastolic blood pressure 61 mm[Hg] [employer] Iris Clayton Work Phone: [facility] 09-09-2023 10:50-0500 Heart rate 79 /min [employer] Iris Clayton Work Phone: [facility] 09-09-2023 10:50-0500 Respiratory rate 16 /min [employer] Iris Clayton Work Phone: [facility] 09-09-2023 10:50-0500 SaO2% (BldA) [Mass fraction] 94 % [employer] Iris Clayton Work Phone: [facility] 09-09-2023 10:50-0500 Systolic blood pressure 126 mm[Hg] [employer] T[employer]ER-C Irisesther Clayton Work Phone: [facility] 09-08-2023 09:32-0500 Body mass index (BMI) [Ratio] 33.6 kg/m2 [employer] Irisesther Clayton Work Phone: [facility] 09-08-2023 09:32-0500 Body temperature 96.7 [degF] [employer] Iris Barkman Work Phone: [facility] 09-08-2023 09:32-0500 Body weight 83.46 kg [employer] Iris Barkman Work Phone: [facility] 09-08-2023 09:32-0500 Diastolic blood pressure 68 mm[Hg] [employer] Iris Barkman Work Phone: [facility] 09-08-2023 09:32-0500 Heart rate 69 /min [employer] Iris Barkman Work Phone: [facility] 09-08-2023 09:32-0500 Respiratory rate 18 /min [employer] Iris Barkman Work Phone: [facility] 09-08-2023 09:32-0500 SaO2% (BldA) [Mass fraction] 98 % [employer] Iris Barkman Work Phone: [facility] 09-08-2023 09:32-0500 Systolic blood pressure 110 mm[Hg] [employer] Iris Barkman Work Phone: [facility] 09-03-2023 10:53-0500 Body mass index (BMI) [Ratio] 34.1 kg/m2 [employer] Iris Barkman Work Phone: [facility] 09-03-2023 10:53-0500 Body temperature 97.9 [degF] [employer] Iris Barkman Work Phone: [facility] 09-03-2023 10:53-0500 Body weight 84.62 kg [employer] Iris Barkman Work Phone: [facility] 09-03-2023 10:53-0500 Diastolic blood pressure 75 mm[Hg] [employer] Iris Barkman Work Phone: [facility] 09-03-2023 10:53-0500 Heart rate 64 /min [employer] Iris Barkman Work Phone: [facility] 09-03-2023 10:53-0500 Respiratory rate 18 /min [employer] Iris Barkman Work Phone: [facility] 09-03-2023 10:53-0500 SaO2% (BldA) [Mass fraction] 97 % [employer] Iris Blantonman Work Phone: [facility] 09-03-2023 10:53-0500 Systolic blood pressure 113 mm[Hg] [employer] Irisesther Blantonman Work Phone: [facility] 09-01-2023 09:27-0500 Body mass index (BMI) [Ratio] 34.2 kg/m2 [employer]ER[employer] Irisesther Blantonman Work Phone: [facility] 09-01-2023 09:27-0500 Body temperature 96.8 [degF] [employer] Irisesther Blantonman Work Phone: [facility] 09-01-2023 09:27-0500 Body weight 84.87 kg [employer] Iris Clayton Work Phone: [facility] 09-01-2023 09:27-0500 Diastolic blood pressure 59 mm[Hg] [employer] Iris Clayton Work Phone: [facility] 09-01-2023 09:27-0500 Heart rate 68 /min [employer] Iris Blantonman Work Phone: [facility] 09-01-2023 09:27-0500 Respiratory rate 18 /min [employer]ER-[employer] Irisesther Clayton Work Phone: [facility] 09-01-2023 09:27-0500 SaO2% (BldA) [Mass fraction] 96 % [employer]ER-[employer] Irisesther Clayton Work Phone: [facility] 09-01-2023 09:27-0500 Systolic blood pressure 79 mm[Hg] [employer]ER-C Irisesther Blantonman Work Phone: [facility] 08-27-2023 10:35-0500 Body mass index (BMI) [Ratio] 34.4 kg/m2 [employer]ER[employer] Irisesther Blantonman Work Phone: [facility] 08-27-2023 10:35-0500 Body temperature 97.3 [degF] [employer] Irisesther Blantonman Work Phone: [facility] 08-27-2023 10:35-0500 Body weight 85.44 kg [employer] Iris Barkman Work Phone: [facility] 08-27-2023 10:35-0500 Diastolic blood pressure 77 mm[Hg] [employer] Iris Barkman Work Phone: [facility] 08-27-2023 10:35-0500 Heart rate 68 /min [employer] Irisesther Blantonman Work Phone: [facility] 08-27-2023 10:35-0500 Respiratory rate 18 /min [employer] Irisesther Blantonman Work Phone: [facility] 08-27-2023 10:35-0500 SaO2% (BldA) [Mass fraction] 97 % [employer] Irisesther Blantonman Work Phone: [facility] 08-27-2023 10:35-0500 Systolic blood pressure 112 mm[Hg] COUN[employer] T[employer]ER-C Irisesther Clayton Work Phone: [facility] 08-25-2023 08:52-0500 Body mass index (BMI) [Ratio] 34.2 kg/m2 [employer]ER[employer] Irisesther Blantonman Work Phone: [facility] 08-25-2023 08:52-0500 Body temperature 97.7 [degF] [employer]ER[employer] Irisesther Blantonman Work Phone: [facility] 08-25-2023 08:52-0500 Body weight 84.82 kg [employer]ER[employer] Iris Barkman Work Phone: [facility] 08-25-2023 08:52-0500 Diastolic blood pressure 75 mm[Hg] [employer]ER[employer] Iris Barkman Work Phone: [facility] 08-25-2023 08:52-0500 Heart rate 64 /min [employer] Iris Barkman Work Phone: [facility] 08-25-2023 08:52-0500 Respiratory rate 20 /min [employer] Irisesther Blantonman Work Phone: [facility] 08-25-2023 08:52-0500 SaO2% (BldA) [Mass fraction] 98 % [employer] Iris Barkman Work Phone: [facility] 08-25-2023 08:52-0500 Systolic blood pressure 109 mm[Hg] [employer]ER[employer] Iris Barkman Work Phone: [facility] 08-20-2023 10:03-0500 Body mass index (BMI) [Ratio] 34.7 kg/m2 [employer]ER[employer] Iris Barkman Work Phone: [facility] 08-20-2023 10:03-0500 Body temperature 97 [degF] [employer] T[employer]ER-C Irisesther Blantonman Work Phone: [facility] 08-20-2023 10:03-0500 Body weight 86.29 kg [employer]ER[employer] Iris Barkman Work Phone: [facility] 08-20-2023 10:03-0500 Diastolic blood pressure 59 mm[Hg] COUN[employer] T[employer]ER-C Irisesther Blantonman Work Phone: [facility] 08-20-2023 10:03-0500 Heart rate 63 /min [employer] T[employer]ER-C Irisesther Blantonman Work Phone: [facility] 08-20-2023 10:03-0500 Respiratory rate 16 /min [employer] Iris Barkman Work Phone: [facility] 08-20-2023 10:03-0500 SaO2% (BldA) [Mass fraction] 95 % [employer] Iris Barkman Work Phone: [facility] 08-20-2023 10:03-0500 Systolic blood pressure 114 mm[Hg] COUN[employer]ER-C Iris Barkman Work Phone: [facility] 08-19-2023 09:09-0500 Body mass index (BMI) [Ratio] 34.4 kg/m2 [employer]ER-C Iris Barkman Work Phone: [facility] 08-19-2023 09:09-0500 Body weight 85.27 kg [employer] T[employer]ER-C Iris Barkman Work Phone: [facility] 08-19-2023 09:09-0500 Diastolic blood pressure 71 mm[Hg] [employer]ER[employer]C Iris Barkman Work Phone: [facility] 08-19-2023 09:09-0500 Heart rate 66 /min [employer] Iris Barkman Work Phone: [facility] 08-19-2023 09:09-0500 Respiratory rate 18 /min [employer] Iris Barkman Work Phone: [facility] 08-19-2023 09:09-0500 SaO2% (BldA) [Mass fraction] 99 % [employer]ER-C Iris Barkman Work Phone: [facility] 08-19-2023 09:09-0500 Systolic blood pressure 122 mm[Hg] [employer]ER[employer]C Iris Barkman Work Phone: [facility] 08-19-2023 09:06-0500 Body mass index (BMI) [Ratio] 34.4 kg/m2 [employer]ER-C Iris Barkman Work Phone: [facility] 08-19-2023 09:06-0500 Body temperature 97.5 [degF] [employer]ER-C Iris Barkman Work Phone: [facility] 08-19-2023 09:06-0500 Body weight 85.27 kg COUN[employer] T[employer]ER-C Iris Barkman Work Phone: [facility] 08-19-2023 09:06-0500 Diastolic blood pressure 63 mm[Hg] [employer]ER-C Iris Barkman Work Phone: [facility] 08-19-2023 09:06-0500 Heart rate 57 /min [employer] Iris Barkman Work Phone: [facility] 08-19-2023 09:06-0500 Respiratory rate 18 /min [employer] Iris Barkman Work Phone: [facility] 08-19-2023 09:06-0500 SaO2% (BldA) [Mass fraction] 97 % [employer] T[employer]ER-C Iris Clayton Work Phone: [facility] 08-19-2023 09:06-0500 Systolic blood pressure 129 mm[Hg] COUN[employer] T[employer]ER-C Iris Clayton Work Phone: [facility] 08-13-2023 10:55-0500 Body mass index (BMI) [Ratio] 35.1 kg/m2 [employer] Iris Clayton Work Phone: [facility] 08-13-2023 10:55-0500 Body temperature 97.8 [degF] [employer]ER-C Iris Clayton Work Phone: [facility] 08-13-2023 10:55-0500 Body weight 87.08 kg COUNTER T[employer]ER-C Iris Clayton Work Phone: [facility] 08-13-2023 10:55-0500 Diastolic blood pressure 75 mm[Hg] [employer]ER-C Iris Clayton Work Phone: [facility] 08-13-2023 10:55-0500 Heart rate 62 /min [employer] Iris Clayton Work Phone: [facility] 08-13-2023 10:55-0500 Respiratory rate 16 /min [employer] Iris Clayton Work Phone: [facility] 08-13-2023 10:55-0500 SaO2% (BldA) [Mass fraction] 95 % [employer]ER-C Iris Clayton Work Phone: [facility] 08-13-2023 10:55-0500 Systolic blood pressure 124 mm[Hg] COUNTER T[employer]ER-C Irisesther Blantonman Work Phone: [facility] 08-12-2023 08:28-0500 Body mass index (BMI) [Ratio] 35.5 kg/m2 [employer]ER-C Iris Clayton Work Phone: [facility] 08-12-2023 08:28-0500 Body temperature 97.8 [degF] [employer]ER-C Iris Clayton Work Phone: [facility] 08-12-2023 08:28-0500 Body weight 88.13 kg COUNTER TACKER-C Irisesther Blantonman Work Phone: [facility] 08-12-2023 08:28-0500 Diastolic blood pressure 65 mm[Hg] COUN[employer] T[employer]ER-C Irisesther Blantonman Work Phone: [facility] 08-12-2023 08:28-0500 Heart rate 61 /min [employer] T[employer]ER-C Irisesther Blantonman Work Phone: [facility] 08-12-2023 08:28-0500 Respiratory rate 18 /min [employer] T[employer]ER-C Irisesther Blantonman Work Phone: [facility] 08-12-2023 08:28-0500 SaO2% (BldA) [Mass fraction] 96 % [employer]ER-C Iris Clayton Work Phone: [facility] 08-12-2023 08:28-0500 Systolic blood pressure 137 mm[Hg] COUN[employer] T[employer]ER-C Iris Clayton Work Phone: [facility] 08-06-2023 10:54-0500 Body mass index (BMI) [Ratio] 34.8 kg/m2 COUN[employer] T[employer]ER-C Iris Clayton Work Phone: [facility] 08-06-2023 10:54-0500 Body temperature 97.5 [degF] COUNTER TACKER-C Irisesther Clayton Work Phone: [facility] 08-06-2023 10:54-0500 Body weight 86.38 kg COUNTER TACKER-C Irisesther Blantonman Work Phone: [facility] 08-06-2023 10:54-0500 Diastolic blood pressure 69 mm[Hg] COUN[employer] T[employer]ER-C Irisesther Blantonman Work Phone: [facility] 08-06-2023 10:54-0500 Heart rate 64 /min COUN[employer] T[employer]ER-C Irisesther Blantonman Work Phone: [facility] 08-06-2023 10:54-0500 Respiratory rate 18 /min COUN[employer] T[employer]ER-C Irisesther Blantonman Work Phone: [facility] 08-06-2023 10:54-0500 SaO2% (BldA) [Mass fraction] 96 % [employer] T[employer]ER-C Iris Barkman Work Phone: [facility] 08-06-2023 10:54-0500 Systolic blood pressure 116 mm[Hg] COUN[employer] T[employer]ER-C Iris Barkman Work Phone: [facility] 08-04-2023 12:49-0500 Body temperature 97.5 [degF] COUN[employer] T[employer]ER-C Iris Barkman Work Phone: [facility] 08-04-2023 12:49-0500 Diastolic blood pressure 47 mm[Hg] COUN[employer] T[employer]ER-C Iris Barkman Work Phone: [facility] 08-04-2023 12:49-0500 Heart rate 70 /min [employer] T[employer]ER-C Iris Barkman Work Phone: [facility] 08-04-2023 12:49-0500 Respiratory rate 16 /min COUNTER TACKER-C Irisesther Blantonman Work Phone: [facility] 08-04-2023 12:49-0500 Systolic blood pressure 122 mm[Hg] COUN[employer] T[employer]ER-C Iris Barkman Work Phone: [facility] 08-04-2023 08:06-0500 Body mass index (BMI) [Ratio] 34.9 kg/m2 COUN[employer] T[employer]ER-C Iris Barkman Work Phone: [facility] 08-04-2023 08:06-0500 Body temperature 97.5 [degF] COUN[employer] T[employer]ER-C Iris Barkman Work Phone: [facility] 08-04-2023 08:06-0500 Body weight 86.74 kg COUNTER T[employer]ER-C Iris Barkman Work Phone: [facility] 08-04-2023 08:06-0500 Diastolic blood pressure 64 mm[Hg] COUN[employer] T[employer]ER-C Iris Barkman Work Phone: [facility] 08-04-2023 08:06-0500 Heart rate 57 /min COUNTER TACKER-C Irisesther Blantonman Work Phone: [facility] 08-04-2023 08:06-0500 Respiratory rate 18 /min COUN[employer] T[employer]ER-C Iris Barkman Work Phone: [facility] 08-04-2023 08:06-0500 SaO2% (BldA) [Mass fraction] 97 % [employer] T[employer]ER-C Iris Barkman Work Phone: [facility] 08-04-2023 08:06-0500 Systolic blood pressure 104 mm[Hg] COUNTER T[employer]ER-C Iris Barkman Work Phone: [facility] 07-30-2023 11:01-0500 Body mass index (BMI) [Ratio] 35.3 kg/m2 COUN[employer] T[employer]ER-C Iris Barkman Work Phone: [facility] 07-30-2023 11:01-0500 Body temperature 97.4 [degF] COUN[employer] T[employer]ER-C Iris Barkman Work Phone: [facility] 07-30-2023 11:01-0500 Body weight 87.57 kg COUNTER TACKER-C Irisesther Blantonman Work Phone: [facility] 07-30-2023 11:01-0500 Diastolic blood pressure 78 mm[Hg] COUN[employer] T[employer]ER-C Iris Barkman Work Phone: [facility] 07-30-2023 11:01-0500 Heart rate 54 /min COUN[employer] T[employer]ER-C Iris Barkman Work Phone: [facility] 07-30-2023 11:01-0500 Respiratory rate 18 /min COUN[employer] T[employer]ER-C Iris Barkman Work Phone: [facility] 07-30-2023 11:01-0500 SaO2% (BldA) [Mass fraction] 95 % [employer] T[employer]ER-C Iris Barkman Work Phone: [facility] 07-30-2023 11:01-0500 Systolic blood pressure 129 mm[Hg] COUN[employer] T[employer]ER-C Iris Barkman Work Phone: [facility] 07-28-2023 13:12-0500 Body temperature 97.5 [degF] COUN[employer] T[employer]ER-C Iris Barkman Work Phone: [facility] 07-28-2023 13:12-0500 Diastolic blood pressure 60 mm[Hg] COUN[employer] T[employer]ER-C Iris Barkman Work Phone: [facility] 07-28-2023 13:12-0500 Heart rate 71 /min [employer] T[employer]ER-C Iris Barkman Work Phone: [facility] 07-28-2023 13:12-0500 Respiratory rate 16 /min COUN[employer] T[employer]ER-C Iris Barkman Work Phone: [facility] 07-28-2023 13:12-0500 SaO2% (BldA) [Mass fraction] 93 % [employer] T[employer]ER-C Iris Barkman Work Phone: [facility] 07-28-2023 13:12-0500 Systolic blood pressure 133 mm[Hg] COUN[employer] T[employer]ER-C Iris Barkman Work Phone: [facility] 07-28-2023 09:03-0500 Body height 157.48 cm COUNTER TACKER-C Iris Barkman Work Phone: [facility] 07-28-2023 09:03-0500 Body mass index (BMI) [Ratio] 34.9 kg/m2 COUN[employer] T[employer]ER-C Iris Barkman Work Phone: [facility] 07-28-2023 09:03-0500 Body temperature 97.4 [degF] COUN[employer] T[employer]ER-C Iris Barkman Work Phone: [facility] 07-28-2023 09:03-0500 Body weight 86.74 kg COUNTER T[employer]ER-C Iris Barkman Work Phone: [facility] 07-28-2023 09:03-0500 Diastolic blood pressure 85 mm[Hg] COUN[employer] T[employer]ER-C Iris Barkman Work Phone: [facility] 07-28-2023 09:03-0500 Heart rate 57 /min [employer] T[employer]ER-C Iris Barkman Work Phone: [facility] 07-28-2023 09:03-0500 Respiratory rate 18 /min COUNTER TACKER-C Irisesther Blantonman Work Phone: [facility] 07-28-2023 09:03-0500 SaO2% (BldA) [Mass fraction] 96 % COUN[employer] T[employer]ER-C Iris Blantonman Work Phone: [facility] 07-28-2023 09:03-0500 Systolic blood pressure 153 mm[Hg] COUNTER TACKER-C Irisesther Blantonman Work Phone: [facility] 07-22-2023 13:14-0500 Body temperature 97.6 [degF] COUNTER TACKER-C Irisesther Blantonman Work Phone: [facility] 07-22-2023 13:14-0500 Diastolic blood pressure 54 mm[Hg] COUNTER TACKER-C Iris Clayton Work Phone: [facility] 07-22-2023 13:14-0500 Heart rate 68 /min [employer] T[employer]ER-C Iris Clayton Work Phone: [facility] 07-22-2023 13:14-0500 Respiratory rate 18 /min COUN[employer] T[employer]ER-C Iris Clayton Work Phone: [facility] 07-22-2023 13:14-0500 SaO2% (BldA) [Mass fraction] 95 % COUN[employer] T[employer]ER-C Iris Clayton Work Phone: [facility] 07-22-2023 13:14-0500 Systolic blood pressure 120 mm[Hg] COUNTER TACKER-C Irisesther Clayton Work Phone: [facility] 07-22-2023 11:25-0500 Body height 157.48 cm COUNTER TACKER-C Irisesther Blantonman Work Phone: [facility] 07-22-2023 11:25-0500 Body mass index (BMI) [Ratio] 35 kg/m2 COUN[employer] T[employer]ER-C Iris Blantonman Work Phone: [facility] 07-22-2023 11:25-0500 Body weight 87 kg COUNTER TACKER-C Iris Clayton Work Phone: [facility] 07-18-2023 10:11-0500 Body mass index (BMI) [Ratio] 34.6 kg/m2 COUN[employer] T[employer]ER-C Iris Clayton Work Phone: [facility] 07-18-2023 10:11-0500 Body temperature 97.2 [degF] COUNTER TACKER-C Iris Clayton Work Phone: [facility] 07-18-2023 10:11-0500 Body weight 85.95 kg COUNTER TACKER-C Iris Clayton Work Phone: [facility] 07-18-2023 10:11-0500 Diastolic blood pressure 60 mm[Hg] COUNTER T[employer]ER-C Iris Clayton Work Phone: [facility] 07-18-2023 10:11-0500 Heart rate 63 /min [employer] T[employer]ER-C Iris Clayton Work Phone: [facility] 07-18-2023 10:11-0500 Respiratory rate 18 /min COUN[employer] T[employer]ER-C Iris Clayton Work Phone: [facility] 07-18-2023 10:11-0500 SaO2% (BldA) [Mass fraction] 95 % COUN[employer] T[employer]ER-C Iris Clayton Work Phone: [facility] 07-18-2023 10:11-0500 Systolic blood pressure 119 mm[Hg] COUNTER T[employer]ER-C Iris Clayton Work Phone: [facility] 07-17-2023 08:51-0500 Body mass index (BMI) [Ratio] 35 kg/m2 COUN[employer] T[employer]ER-C Iris Clayton Work Phone: [facility] 07-17-2023 08:51-0500 Body temperature 98.1 [degF] COUN[employer] TACKER-C Iris BlantonSerene Oncology Work Phone: [facility] 07-17-2023 08:51-0500 Body weight 86.83 kg COUNTER TACKER-C Iris Clayton Work Phone: [facility] 07-17-2023 08:51-0500 Diastolic blood pressure 84 mm[Hg] COUNTER TACKER-C Irisesther Blantonman Work Phone: [facility] 07-17-2023 08:51-0500 Heart rate 59 /min COUNTER TACKER-C Irisesther Blantonman Work Phone: [facility] 07-17-2023 08:51-0500 Respiratory rate 18 /min COUNTER TACKER-C Irisesther Blantonman Work Phone: [facility] 07-17-2023 08:51-0500 SaO2% (BldA) [Mass fraction] 97 % COUN[employer] T[employer]ER-C Iris Clayton Work Phone: [facility] 07-17-2023 08:51-0500 Systolic blood pressure 124 mm[Hg] COUNTER TACKER-C Irisesther Blantonman Work Phone: [facility] 07-16-2023 07:16-0500 Body mass index (BMI) [Ratio] 35.1 kg/m2 COUNTER TACKER-C Irisesther Clayton Work Phone: [facility] 07-16-2023 07:16-0500 Body weight 87.08 kg COUNTER TACKER-C Iris Clayton Work Phone: [facility] 07-09-2023 09:10-0500 Body weight 85.27 kg COUNTER TACKER-C Iris Clayton Work Phone: [facility] 07-09-2023 09:09-0500 Body mass index (BMI) [Ratio] 34.4 kg/m2 COUNTER TACKER-C Iris Barkman Work Phone: [facility] 07-04-2023 14:34-0500 Body mass index (BMI) [Ratio] 34.4 kg/m2 COUNTER TACKER-C Irisesther Blantonman Work Phone: [facility] 07-04-2023 14:34-0500 Body weight 85.27 kg COUNTER TACKER-C Iris Barkman Work Phone: [facility] 07-04-2023 14:34-0500 Diastolic blood pressure 59 mm[Hg] COUNTER T[employer]ER-C Iris Barkman Work Phone: [facility] 07-04-2023 14:34-0500 Heart rate 56 /min COUNTER TACKER-C Iris Clayton Work Phone: [facility] 07-04-2023 14:34-0500 Respiratory rate 16 /min COUNTER T[employer]ER[employer]C Iris Clayton Work Phone: [facility] 07-04-2023 14:34-0500 Systolic blood pressure 97 mm[Hg] COUNTER TACKER-C Iris Clayton Work Phone: [facility] 07-04-2023 09:55-0500 Body mass index (BMI) [Ratio] 34.6 kg/m2 [employer] T[employer]ER-C Iris Clayton Work Phone: [facility] 07-04-2023 09:55-0500 Body temperature 97.8 [degF] COUNTER TACKER-C Iris Clayton Work Phone: [facility] 07-04-2023 09:55-0500 Body weight 85.92 kg COUNTER TACKER-C Iris Clayton Work Phone: [facility] 07-04-2023 09:55-0500 Diastolic blood pressure 76 mm[Hg] COUNTER TACKER-C Iris Clayton Work Phone: [facility] 07-04-2023 09:55-0500 Heart rate 58 /min COUNTER TACKER-C Iris Clayton Work Phone: [facility] 07-04-2023 09:55-0500 Respiratory rate 18 /min [employer] T[employer]ER[employer]C Iris Clayton Work Phone: [facility] 07-04-2023 09:55-0500 SaO2% (BldA) [Mass fraction] 96 % [employer] T[employer]ER-C Iris Clayton Work Phone: [facility] 07-04-2023 09:55-0500 Systolic blood pressure 114 mm[Hg] COUNTER T[employer]ER-C Iris Clayton Work Phone: [facility] 07-02-2023 09:02-0500 Body mass index (BMI) [Ratio] 34.2 kg/m2 COUNTER TACKER-C Irisesther Blantonman Work Phone: [facility] 07-02-2023 09:02-0500 Body temperature 97.6 [degF] COUNTER TACKER-C Irisesther Blantonman Work Phone: [facility] 07-02-2023 09:02-0500 Body weight 84.87 kg COUNTER TACKER-C Irisesther Blantonman Work Phone: [facility] 07-02-2023 09:02-0500 Diastolic blood pressure 85 mm[Hg] COUNTER TACKER-C Iris Barkman Work Phone: [facility] 07-02-2023 09:02-0500 Heart rate 55 /min COUNTER TACKER-C Irisesther Blantonman Work Phone: [facility] 07-02-2023 09:02-0500 Respiratory rate 16 /min COUNTER TACKER-C Irisesther Clayton Work Phone: [facility] 07-02-2023 09:02-0500 SaO2% (BldA) [Mass fraction] 97 % COUNTER TACKER-C Irisesther Clayton Work Phone: [facility] 07-02-2023 09:02-0500 Systolic blood pressure 147 mm[Hg] COUNTER TACKER-C Irisesther Clayton Work Phone: [facility] 06-14-2023 11:00-0400 SaO2% (BldA) [Mass fraction] 93 % COUNTER TACKER-C Irisesther Clayton Work Phone: [facility] 06-14-2023 09:36-0400 Diastolic blood pressure 59 mm[Hg] COUNTER TACKER-C Iris Barkman Work Phone: [facility] 06-14-2023 09:36-0400 Heart rate 67 /min COUNTER TACKER-C Irisesther Blantonman Work Phone: [facility] 06-14-2023 09:36-0400 Systolic blood pressure 117 mm[Hg] COUNTER TACKER-C Iris Barkman Work Phone: [facility] 06-14-2023 09:01-0400 SaO2% (BldA) [Mass fraction] 96 % COUNTER TACKER-Rupal Clayton Work Phone: [facility] 06-14-2023 08:23-0400 Body temperature 98.7 [degF] COUNTER TACKER-Rupal Clayton Work Phone: [facility] 06-14-2023 08:23-0400 Respiratory rate 16 /min COUNTER TACKER-Rupal Clayton Work Phone: [facility] 06-13-2023 08:55-0400 Inhaled oxygen flow rate 2 L/min COUNTER TACKER-Rupal Clayton Work Phone: [facility] 06-12-2023 10:22-0400 Body height 157.48 cm COUNTER TACKER-Rupal Clayton Work Phone: [facility] 06-12-2023 10:22-0400 Body weight 86 kg COUNTER TACKER-Rupal Clayton Work Phone: [facility] 06-11-2023 19:53-0400 Body mass index (BMI) [Ratio] 34.7 kg/m2 COUNTER TACKER-Rupal Clayton Work Phone: [facility] 06-11-2023 19:40-0400 Diastolic blood pressure 67 mm[Hg] [facility] 06-11-2023 19:40-0400 Systolic blood pressure 115 mm[Hg] [facility] 06-11-2023 18:46-0400 Heart rate 79 /min [facility] 06-11-2023 18:46-0400 Respiratory rate 16 /min [facility] 06-11-2023 18:46-0400 SaO2% (BldA) [Mass fraction] 92 % [facility] 06-11-2023 12:58-0400 Body height 157.48 cm [facility] 06-11-2023 12:58-0400 Body mass index (BMI) [Ratio] 26.9 kg/m2 [facility] 06-11-2023 12:58-0400 Body temperature 98.2 [degF] [facility] 06-11-2023 12:58-0400 Body weight 66.67 kg [facility] 05-01-2023 11:58-0400 Diastolic blood pressure 63 mm[Hg] COUNTER TACKER-C Iris Clayton Work Phone: [facility] 05-01-2023 11:58-0400 Heart rate 61 /min COUNTER TACKER-C Iris Clayton Work Phone: [facility] 05-01-2023 11:58-0400 Respiratory rate 16 /min [employer]TER T[employer]ER-C Iris Clayton Work Phone: [facility] 05-01-2023 11:58-0400 SaO2% (BldA) [Mass fraction] 94 % COUNTER TACKER-C Iris Clayton Work Phone: [facility] 05-01-2023 11:58-0400 Systolic blood pressure 112 mm[Hg] COUNTER TACKER-C Iris Clayton Work Phone: [facility] 05-01-2023 10:13-0400 Inhaled oxygen flow rate 2 L/min COUNTER TACKER-C Iris Clayton Work Phone: [facility] 05-01-2023 08:16-0400 Body height 157.48 cm COUNTER TACKER-C Iris Clayton Work Phone: [facility] 05-01-2023 08:16-0400 Body mass index (BMI) [Ratio] 32.9 kg/m2 COUNTER TACKER-C Iris Clayton Work Phone: [facility] 05-01-2023 08:16-0400 Body temperature 97.4 [degF] COUNTER TACKER-C Iris Clayton Work Phone: [facility] 05-01-2023 08:16-0400 Body weight 81.64 kg COUNTER TACKER-C Iris Clayton Work Phone: [facility] 01-29-2023 10:54-0400 Body height 157.48 cm COUNTER TACKER-C Iris Clayton Work Phone: [facility] 01-29-2023 10:54-0400 Body mass index (BMI) [Ratio] 35.8 kg/m2 COUNTER TACKER-C Iris Clayton Work Phone: [facility] 01-29-2023 10:54-0400 Body temperature 98.2 [degF] COUNTER TACKER-C Iris Clayton Work Phone: [facility] 01-29-2023 10:54-0400 Body weight 88.9 kg COUNTER TACKER-C Iris Clayton Work Phone: [facility] 01-29-2023 10:54-0400 Diastolic blood pressure 72 mm[Hg] COUNTER TACKER-C Iris Clayton Work Phone: [facility] 01-29-2023 10:54-0400 Heart rate 75 /min COUNTER TACKER-C Iris Clayton Work Phone: [facility] 01-29-2023 10:54-0400 Respiratory rate 17 /min COUNTER TACKER-C Iris Clayton Work Phone: [facility] 01-29-2023 10:54-0400 SaO2% (BldA) [Mass fraction] 94 % COUNTER TACKER-C Iris Clayton Work Phone: [facility] 01-29-2023 10:54-0400 Systolic blood pressure 117 mm[Hg] COUNTER TACKER-C Iris Clayton Work Phone: [facility] 10-01-2022 08:44-0500 Body height 157.[address] Sharif Christianson Work Phone: [facility] 10-01-2022 08:44-0500 Body mass index (BMI) [Ratio] 32.1 kg/m2 Dr. Sharif Christianson Work Phone: [facility] 10-01-2022 08:44-0500 Body weight 79.[address] Sharif Christianson Work Phone: [facility] 10-01-2022 08:44-0500 Diastolic blood pressure 72 mm[Hg] Dr. Sharif Christianson Work Phone: [facility] 10-01-2022 08:44-0500 Heart rate 66 /min Dr. Sharif Christianson Work Phone: [facility] 10-01-2022 08:44-0500 Respiratory rate 18 /min Dr. Sharif Christianson Work Phone: [facility] 10-01-2022 08:44-0500 Systolic blood pressure 125 mm[Hg] Dr. Sharif Christianson Work Phone: [facility] 07-30-2022 09:47-0500 Body height 157.[address] Sharif Christianson Work Phone: [facility] Work Phone: 07-30-2022 09:45-0500 Body mass index (BMI) [Ratio] 30.5 kg/m2 Dr. Sharif Christianson Work Phone: [facility] 07-30-2022 09:45-0500 Body temperature 97.4 [degF] Dr. Sharif Christianson Work Phone: [facility] 07-30-2022 09:45-0500 Body weight 75.[address] Sharif Christianson Work Phone: [facility] 07-30-2022 09:45-0500 Diastolic blood pressure 63 mm[Hg] Dr. Sharif Christianson Work Phone: [facility] 07-30-2022 09:45-0500 Heart rate 55 /min Dr. Sharif Christianson Work Phone: [facility] 07-30-2022 09:45-0500 Respiratory rate 16 /min Dr. Sharif Christianson Work Phone: [facility] 07-30-2022 09:45-0500 SaO2% (BldA) [Mass fraction] 98 % Dr. Sharif Christianson Work Phone: [facility] 07-30-2022 09:45-0500 Systolic blood pressure 98 mm[Hg] Dr. Sharif Christianson Work Phone: [facility] 05-30-2022 08:32-0400 Body height 157.[address] Sharif Christianson Work Phone: [facility] Work Phone: 05-30-2022 08:32-0400 Body mass index (BMI) [Ratio] 29.2 kg/m2 Dr. Sharif Christianson Work Phone: [facility] Work Phone: 05-30-2022 08:32-0400 Body weight 72.[address] Sharif Christianson Work Phone: [facility] Work Phone: 05-30-2022 08:32-0400 Diastolic blood pressure 82 mm[Hg] Dr. Sharif Christianson Work Phone: [facility] Work Phone: 05-30-2022 08:32-0400 Heart rate 69 /min Dr. Sharif Christianson Work Phone: [facility] Work Phone: 05-30-2022 08:32-0400 Respiratory rate 18 /min Dr. Sharif Christianson Work Phone: [facility] Work Phone: 05-30-2022 08:32-0400 SaO2% (BldA) [Mass fraction] 98 % Dr. Sharif Christianson Work Phone: [facility] Work Phone: 05-30-2022 08:32-0400 Systolic blood pressure 134 mm[Hg] Dr. Sharif Christianson Work Phone: [facility] Work Phone: 05-23-2022 10:42-0400 Body height 160 cm Bryce Greer MD Work Phone: [facility] 05-23-2022 10:42-0400 Body weight 73 kg Bryce Greer MD Work Phone: [facility] 05-23-2022 10:42-0400 Diastolic blood pressure 72 mm[Hg] Bryce Greer MD Work Phone: [facility] 05-23-2022 10:42-0400 Heart rate 65 /min Bryce Greer MD Work Phone: [facility] 05-23-2022 10:42-0400 SaO2% (BldA) [Mass fraction] 98 % Bryce Greer MD Work Phone: [facility] 05-23-2022 10:42-0400 Systolic blood pressure 128 mm[Hg] Bryce Greer MD Work Phone: [facility] 05-07-2022 10:53-0400 Body height 160 cm Bryce Greer MD Work Phone: [facility] 05-07-2022 10:53-0400 Body weight 71 kg Bryce Greer MD Work Phone: [facility] 05-07-2022 10:53-0400 Diastolic blood pressure 78 mm[Hg] Bryce Greer MD Work Phone: [facility] 05-07-2022 10:53-0400 Heart rate 58 /min Bryce Greer MD Work Phone: [facility] 05-07-2022 10:53-0400 SaO2% (BldA) [Mass fraction] 98 % Bryce Greer MD Work Phone: [facility] 05-07-2022 10:53-0400 Systolic blood pressure 112 mm[Hg] Bryce Greer MD Work Phone: [facility] 05-02-2022 16:33-0400 Body temperature 97.6 [degF] Dr. Sharif Christianson Work Phone: [facility] 05-02-2022 16:33-0400 Diastolic blood pressure 73 mm[Hg] Dr. Sharif Christianson Work Phone: [facility] 05-02-2022 16:33-0400 Heart rate 64 /min Dr. Sharif Christianson Work Phone: [facility] 05-02-2022 16:33-0400 Respiratory rate 16 /min Dr. Sharif Christianson Work Phone: [facility] 05-02-2022 16:33-0400 SaO2% (BldA) [Mass fraction] 97 % Dr. Sharif Christianson Work Phone: [facility] 05-02-2022 16:33-0400 Systolic blood pressure 127 mm[Hg] Dr. Sharif Christianson Work Phone: [facility] 05-02-2022 14:24-0400 Body mass index (BMI) [Ratio] 28.1 kg/m2 Dr. Sharif Christianson Work Phone: [facility] 05-02-2022 14:24-0400 Body weight 69.[address] Sharif Christianson Work Phone: [facility] 04-29-2022 11:04-0400 Body mass index (BMI) [Ratio] 28.3 kg/m2 Dr. Sharif Christianson Work Phone: [facility] Work Phone: 04-29-2022 11:04-0400 Body temperature 97.1 [degF] Dr. Sharif Christianson Work Phone: [facility] Work Phone: 04-29-2022 11:04-0400 Body weight 70.[address] Sharif Christianson Work Phone: [facility] Work Phone: 04-29-2022 11:04-0400 Diastolic blood pressure 74 mm[Hg] Dr. Sharif Christianson Work Phone: [facility] Work Phone: 04-29-2022 11:04-0400 Heart rate 65 /min Dr. Shraif Christianson Work Phone: [facility] Work Phone: 04-29-2022 11:04-0400 Respiratory rate 18 /min Dr. Sharif Christianson Work Phone: [facility] Work Phone: 04-29-2022 11:04-0400 SaO2% (BldA) [Mass fraction] 97 % Dr. Sharif Christianson Work Phone: [facility] Work Phone: 04-29-2022 11:04-0400 Systolic blood pressure 117 mm[Hg] Dr. Sharif Christianson Work Phone: [facility] Work Phone: 04-23-2022 12:21-0400 Diastolic blood pressure 49 mm[Hg] Dr. Sharif Christianson Work Phone: [facility] Work Phone: 04-23-2022 12:21-0400 Heart rate 59 /min Dr. Sharif Christianson Work Phone: [facility] Work Phone: 04-23-2022 12:21-0400 Systolic blood pressure 117 mm[Hg] Dr. Sharif Christianson Work Phone: [facility] Work Phone: 04-23-2022 10:19-0400 Body height 157.[address] Sharif Christianson Work Phone: [facility] Work Phone: 04-23-2022 10:19-0400 Body mass index (BMI) [Ratio] 26.5 kg/m2 Dr. Sharif Christianson Work Phone: [facility] Work Phone: 04-23-2022 10:19-0400 Body temperature 96.9 [degF] Dr. Sharif Christianson Work Phone: [facility] Work Phone: 04-23-2022 10:19-0400 Body weight 65.[address] Sharif Christianson Work Phone: [facility] Work Phone: 04-23-2022 10:19-0400 Respiratory rate 18 /min Dr. Sharif Christianson Work Phone: [facility] Work Phone: 04-23-2022 10:19-0400 SaO2% (BldA) [Mass fraction] 100 % Dr. Sharif Christianson Work Phone: [facility] Work Phone: 04-18-2022 13:49-0400 Body height 160 cm Bryce Greer MD Work Phone: [facility] 04-18-2022 13:49-0400 Body weight 68.2 kg Bryce Greer MD Work Phone: [facility] 04-18-2022 13:49-0400 Diastolic blood pressure 70 mm[Hg] Bryce Greer MD Work Phone: [facility] 04-18-2022 13:49-0400 Heart rate 76 /min Bryce Greer MD Work Phone: [facility] 04-18-2022 13:49-0400 SaO2% (BldA) [Mass fraction] 96 % Bryce Greer MD Work Phone: [facility] 04-18-2022 13:49-0400 Systolic blood pressure 110 mm[Hg] Bryce Greer MD Work Phone: [facility] 04-17-2022 13:14-0400 Body temperature 96 [degF] Dr. Sharif Christianson Work Phone: [facility] Work Phone: 04-17-2022 13:14-0400 Diastolic blood pressure 50 mm[Hg] Dr. Sharif Christianson Work Phone: [facility] Work Phone: 04-17-2022 13:14-0400 Heart rate 52 /min Dr. Sharif Christianson Work Phone: [facility] Work Phone: 04-17-2022 13:14-0400 Respiratory rate 18 /min Dr. Sharif Christianson Work Phone: [facility] Work Phone: 04-17-2022 13:14-0400 SaO2% (BldA) [Mass fraction] 94 % Dr. Sharif Christianson Work Phone: [facility] Work Phone: 04-17-2022 13:14-0400 Systolic blood pressure 118 mm[Hg] Dr. Sharif Christianson Work Phone: [facility] Work Phone: 04-16-2022 07:34-0400 Body temperature 98.7 [degF] Dr. Sharif Christianson Work Phone: [facility] Work Phone: 04-16-2022 07:34-0400 Diastolic blood pressure 66 mm[Hg] Dr. Sharif Christianson Work Phone: [facility] Work Phone: 04-16-2022 07:34-0400 Heart rate 56 /min Dr. Sharif Christianson Work Phone: [facility] Work Phone: 04-16-2022 07:34-0400 Respiratory rate 16 /min Dr. Sharif Christianson Work Phone: [facility] Work Phone: 04-16-2022 07:34-0400 SaO2% (BldA) [Mass fraction] 97 % Dr. Sharif Christianson Work Phone: [facility] Work Phone: 04-16-2022 07:34-0400 Systolic blood pressure 132 mm[Hg] Dr. Sharif Christianson Work Phone: [facility] Work Phone: 04-13-2022 12:30-0400 Body height 157.[address] Sharif Christianson Work Phone: [facility] Work Phone: 04-13-2022 12:30-0400 Body weight 67.[address] Sharif Christianson Work Phone: [facility] Work Phone: 04-05-2022 16:36-0400 Body mass index (BMI) [Ratio] 24.5 kg/m2 Dr. Sharif Christianson Work Phone: [facility] Work Phone: 03-28-2022 12:00-0400 Diastolic blood pressure 54 mm[Hg] Dr. Sharif Christianson Work Phone: [facility] Work Phone: 03-28-2022 12:00-0400 Heart rate 65 /min Dr. Sharif Christianson Work Phone: [facility] Work Phone: 03-28-2022 12:00-0400 Inhaled oxygen flow rate 2 L/min Dr. Sharif Christianson Work Phone: [facility] Work Phone: 03-28-2022 12:00-0400 Respiratory rate 18 /min Dr. Sharif Christianson Work Phone: [facility] Work Phone: 03-28-2022 12:00-0400 SaO2% (BldA) [Mass fraction] 97 % Dr. Sharif Christianson Work Phone: [facility] Work Phone: 03-28-2022 12:00-0400 Systolic blood pressure 122 mm[Hg] Dr. Sharif Christianson Work Phone: [facility] Work Phone: 03-28-2022 11:15-0400 Body temperature 96.3 [degF] Dr. Sharif Christianson Work Phone: [facility] Work Phone: 03-28-2022 10:32-0400 Body height 157.[address] Sharif Christianson Work Phone: [facility] Work Phone: 03-28-2022 10:32-0400 Body mass index (BMI) [Ratio] 31.7 kg/m2 Dr. Sharif Christianson Work Phone: [facility] Work Phone: 03-28-2022 10:32-0400 Body weight 78.[address] Sharif Christianson Work Phone: [facility] Work Phone: 03-25-2022 15:17-0400 Body temperature 97.5 [degF] Dr. Sharif Christianson Work Phone: [facility] Work Phone: 03-25-2022 15:17-0400 Diastolic blood pressure 61 mm[Hg] Dr. Sharif Christianson Work Phone: [facility] Work Phone: 03-25-2022 15:17-0400 Heart rate 75 /min Dr. Sharif Christianson Work Phone: [facility] Work Phone: 03-25-2022 15:17-0400 Respiratory rate 16 /min Dr. Sharif Christianson Work Phone: [facility] Work Phone: 03-25-2022 15:17-0400 SaO2% (BldA) [Mass fraction] 95 % Dr. Sharif Christianson Work Phone: [facility] Work Phone: 03-25-2022 15:17-0400 Systolic blood pressure 117 mm[Hg] Dr. Sharif Christianson Work Phone: [facility] Work Phone: 03-25-2022 12:50-0400 Body mass index (BMI) [Ratio] 28.3 kg/m2 Dr. Sharif Christianson Work Phone: [facility] Work Phone: 03-25-2022 12:50-0400 Body weight 70.[address] Sharif Christianson Work Phone: [facility] Work Phone: 03-12-2022 10:36-0400 Body height 160 cm Bryce Greer MD Work Phone: [facility] 03-12-2022 10:36-0400 Body weight 74 kg Bryce Greer MD Work Phone: [facility] 03-12-2022 10:36-0400 Diastolic blood pressure 58 mm[Hg] Bryce Greer MD Work Phone: [facility] 03-12-2022 10:36-0400 Heart rate 81 /min Bryce Greer MD Work Phone: [facility] 03-12-2022 10:36-0400 SaO2% (BldA) [Mass fraction] 98 % Bryce Greer MD Work Phone: [facility] 03-12-2022 10:36-0400 Systolic blood pressure 106 mm[Hg] Bryce Greer MD Work Phone: [facility] 03-04-2022 13:49-0400 Body height 160.[address] Sharif Christianson Work Phone: [facility] Work Phone: 03-04-2022 13:39-0400 Body mass index (BMI) [Ratio] 28 kg/m2 Dr. Sharif Christianson Work Phone: [facility] Work Phone: 03-04-2022 13:39-0400 Body temperature 97.6 [degF] Dr. Sharif Christianson Work Phone: [facility] Work Phone: 03-04-2022 13:39-0400 Body weight 71.[address] Sharif Christianson Work Phone: [facility] Work Phone: 03-04-2022 13:39-0400 Diastolic blood pressure 58 mm[Hg] Dr. Sharif Christianson Work Phone: [facility] Work Phone: 03-04-2022 13:39-0400 Heart rate 88 /min Dr. Sharif Christianson Work Phone: [facility] Work Phone: 03-04-2022 13:39-0400 Respiratory rate 16 /min Dr. Sharif Christianson Work Phone: [facility] Work Phone: 03-04-2022 13:39-0400 SaO2% (BldA) [Mass fraction] 99 % Dr. Sharif Christianson Work Phone: [facility] Work Phone: 03-04-2022 13:39-0400 Systolic blood pressure 93 mm[Hg] Dr. Sharif Christianson Work Phone: [facility] Work Phone: 02-14-2022 10:53-0400 Body height 160 cm Bryce Greer MD Work Phone: [facility] 02-14-2022 10:53-0400 Body weight 72 kg Bryce Greer MD Work Phone: [facility] 02-14-2022 10:53-0400 Diastolic blood pressure 59 mm[Hg] Bryce Greer MD Work Phone: [facility] 02-14-2022 10:53-0400 Heart rate 64 /min Bryce Greer MD Work Phone: [facility] 02-14-2022 10:53-0400 Respiratory rate 16 /min Bryce Greer MD Work Phone: [facility] 02-14-2022 10:53-0400 SaO2% (BldA) [Mass fraction] 98 % Bryce Greer MD Work Phone: [facility] 02-14-2022 10:53-0400 Systolic blood pressure 107 mm[Hg] Bryce Greer MD Work Phone: [facility] 01-28-2022 10:44-0400 Body mass index (BMI) [Ratio] 27.6 kg/m2 Dr. Sharif Christianson Work Phone: [facility] Work Phone: 01-28-2022 10:44-0400 Body weight 70.[address] Sharif Christianson Work Phone: [facility] Work Phone: 01-28-2022 10:44-0400 Diastolic blood pressure 68 mm[Hg] Dr. Sharif Christianson Work Phone: [facility] Work Phone: 01-28-2022 10:44-0400 Heart rate 86 /min Dr. Sharif Christianson Work Phone: [facility] Work Phone: 01-28-2022 10:44-0400 Respiratory rate 18 /min Dr. Sharif Christianson Work Phone: [facility] Work Phone: 01-28-2022 10:44-0400 SaO2% (BldA) [Mass fraction] 95 % Dr. Sharif Christianson Work Phone: [facility] Work Phone: 01-28-2022 10:44-0400 Systolic blood pressure 133 mm[Hg] Dr. Sharif Christianson Work Phone: [facility] Work Phone: 06-07-2022 13:30-0400 Body height 160 cm Pst 1 [facility] 01-22-2022 13:30-0400 Body temperature 97.7 [degF] Pst 1 [facility] 01-22-2022 13:30-0400 Body weight 71.67 kg Pst 1 [facility] 01-22-2022 13:30-0400 Diastolic blood pressure 64 mm[Hg] Pst 1 [facility] 01-22-2022 13:30-0400 Heart rate 84 /min Pst 1 [facility] 01-22-2022 13:30-0400 Respiratory rate 14 /min Pst 1 [facility] 01-22-2022 13:30-0400 SaO2% (BldA) [Mass fraction] 99 % Pst 1 [facility] 01-22-2022 13:30-0400 Systolic blood pressure 110 mm[Hg] Pst 1 [facility] 01-15-2022 11:07-0400 Body height 160 cm Bryce Greer MD Work Phone: [facility] 01-15-2022 11:07-0400 Body weight 71.8 kg Bryce Greer MD Work Phone: [facility] 01-15-2022 11:07-0400 Diastolic blood pressure 82 mm[Hg] Bryce Greer MD Work Phone: [facility] 01-15-2022 11:07-0400 Heart rate 89 /min Bryce Greer MD Work Phone: [facility] 01-15-2022 11:07-0400 SaO2% (BldA) [Mass fraction] 98 % Bryce Greer MD Work Phone: [facility] 01-15-2022 11:07-0400 Systolic blood pressure 136 mm[Hg] Bryce Greer MD Work Phone: [facility] 12-17-2021 14:55-0400 Diastolic blood pressure 61 mm[Hg] Dr. Sharif Christianson Work Phone: [facility] Work Phone: 12-17-2021 14:55-0400 Heart rate 75 /min Dr. Sharif Christianson Work Phone: [facility] Work Phone: 12-17-2021 14:55-0400 Respiratory rate 16 /min Dr. Sharif Christianson Work Phone: [facility] Work Phone: 12-17-2021 14:55-0400 SaO2% (BldA) [Mass fraction] 95 % Dr. Sharif Christianson Work Phone: [facility] Work Phone: 12-17-2021 14:55-0400 Systolic blood pressure 107 mm[Hg] Dr. Sharif Christianson Work Phone: [facility] Work Phone: 12-17-2021 13:09-0400 Body height 160.[address] Sharif Christianson Work Phone: [facility] Work Phone: 12-17-2021 13:09-0400 Body mass index (BMI) [Ratio] 29.5 kg/m2 Dr. Sharif Christianson Work Phone: [facility] Work Phone: 12-17-2021 13:09-0400 Body temperature 98.5 [degF] Dr. Sharif Christianson Work Phone: [facility] Work Phone: 12-17-2021 13:09-0400 Body weight 75.[address] Sharif Christianson Work Phone: [facility] Work Phone: 12-05-2021 13:40-0400 Body mass index (BMI) [Ratio] 27.5 kg/m2 Dr. Sharif Christianson Work Phone: [facility] Work Phone: 12-05-2021 13:40-0400 Body temperature 98.2 [degF] Dr. Sharif Christianson Work Phone: [facility] Work Phone: 12-05-2021 13:40-0400 Body weight 70.[address] Sharif Christianson Work Phone: [facility] Work Phone: 12-05-2021 13:40-0400 Diastolic blood pressure 69 mm[Hg] Dr. Sharif Christianson Work Phone: [facility] Work Phone: 12-05-2021 13:40-0400 Heart rate 90 /min Dr. Sharif Christianson Work Phone: [facility] Work Phone: 12-05-2021 13:40-0400 Respiratory rate 16 /min Dr. Sharif Christianson Work Phone: [facility] Work Phone: 12-05-2021 13:40-0400 SaO2% (BldA) [Mass fraction] 98 % Dr. Sharif Christianson Work Phone: [facility] Work Phone: 12-05-2021 13:40-0400 Systolic blood pressure 108 mm[Hg] Dr. Sharif Christianson Work Phone: [facility] Work Phone: 12-05-2021 13:40-0400 Body mass index (BMI) [Ratio] 27.5 kg/m2 Dr. Sharif Christianson Work Phone: [facility] Work Phone: 12-05-2021 13:40-0400 Body temperature 98.2 [degF] Dr. Sharif Christianson Work Phone: [facility] Work Phone: 12-05-2021 13:40-0400 Body weight 70.[address] Sharif Christianson Work Phone: [facility] Work Phone: 12-05-2021 13:40-0400 Diastolic blood pressure 69 mm[Hg] Dr. Sharif Christianson Work Phone: [facility] Work Phone: 12-05-2021 13:40-0400 Heart rate 90 /min Dr. Sharif Christianson Work Phone: [facility] Work Phone: 12-05-2021 13:40-0400 Respiratory rate 16 /min Dr. Sharif Christianson Work Phone: [facility] Work Phone: 12-05-2021 13:40-0400 SaO2% (BldA) [Mass fraction] 98 % Dr. Sharif Christianson Work Phone: [facility] Work Phone: 12-05-2021 13:40-0400 Systolic blood pressure 108 mm[Hg] Dr. Sharif Christianson Work Phone: [facility] Work Phone: 10-27-2021 22:37-0500 Body temperature 97.9 [degF] Dr. Sharif Christianson Work Phone: [facility] Work Phone: 10-27-2021 22:37-0500 Diastolic blood pressure 101 mm[Hg] Dr. Sharif Christianson Work Phone: [facility] Work Phone: 10-27-2021 22:37-0500 Heart rate 84 /min Dr. Sharif Christianson Work Phone: [facility] Work Phone: 10-27-2021 22:37-0500 Respiratory rate 24 /min Dr. Sharif Christianson Work Phone: [facility] Work Phone: 10-27-2021 22:37-0500 SaO2% (BldA) [Mass fraction] 98 % Dr. Sharif Christianson Work Phone: [facility] Work Phone: 10-27-2021 22:37-0500 Systolic blood pressure 148 mm[Hg] Dr. Sharif Christianson Work Phone: [facility] Work Phone: 10-27-2021 20:33-0500 Body mass index (BMI) [Ratio] 31.4 kg/m2 Dr. Sharif Christianson Work Phone: [facility] Work Phone: 10-27-2021 20:33-0500 Body weight 80.[address] Sharif Christianson Work Phone: [facility] Work Phone: 10-01-2021 09:37-0500 Body mass index (BMI) [Ratio] 29.5 kg/m2 Dr. Sharif Christianson Work Phone: [facility] Work Phone: 10-01-2021 09:37-0500 Body weight 75.[address] Sharif Christianson Work Phone: [facility] Work Phone: 10-01-2021 09:37-0500 Diastolic blood pressure 80 mm[Hg] Dr. Sharif Christianson Work Phone: [facility] Work Phone: 10-01-2021 09:37-0500 Heart rate 71 /min Dr. Sharif Christianson Work Phone: [facility] Work Phone: 10-01-2021 09:37-0500 Respiratory rate 18 /min Dr. Sharif Christianson Work Phone: [facility] Work Phone: 10-01-2021 09:37-0500 Systolic blood pressure 147 mm[Hg] Dr. Sharif Christianson Work Phone: [facility] Work Phone: 09-17-2021 09:55-0500 Body mass index (BMI) [Ratio] 31.8 kg/m2 Dr. Sharif Christianson Work Phone: [facility] Work Phone: 09-17-2021 09:55-0500 Body temperature 97.7 [degF] Dr. Sharif Christianson Work Phone: [facility] Work Phone: 09-17-2021 09:55-0500 Body weight 79.[address] Sharif Christianson Work Phone: [facility] Work Phone: 09-17-2021 09:55-0500 Diastolic blood pressure 74 mm[Hg] Dr. Sharif Christianson Work Phone: [facility] Work Phone: 09-17-2021 09:55-0500 Heart rate 72 /min Dr. Sharif Christianson Work Phone: [facility] Work Phone: 09-17-2021 09:55-0500 Respiratory rate 16 /min Dr. Sharif Christianson Work Phone: [facility] Work Phone: 09-17-2021 09:55-0500 SaO2% (BldA) [Mass fraction] 98 % Dr. Sharif Christianson Work Phone: [facility] Work Phone: 09-17-2021 09:55-0500 Systolic blood pressure 122 mm[Hg] Dr. Sharif Christianson Work Phone: [facility] Work Phone: 10-02-2020 07:56-0500 Body mass index (BMI) [Ratio] 34.4 kg/m2 Dr. Sharif Christianson Work Phone: [facility] Work Phone: 12-05-2016 09:47-0400 BMI (Body Mass Index) 40.97 kg/m2 Arely Smart RN [facility] Work Phone: 12-05-2016 09:47-0400 BP [...] Phone: 12-05-2016 09:47-0400 Respiratory Rate 18 /min [facility] Work Phone: 12-05-2016 09:47-0400 Weight 101.61 kg [facility] Work Phone: 05-30-2016 15:20-0400 BSA (Body Surface Area) 2 m2 [facility] Work Phone: Encounters Encounter Date Encounter Type Care Provider Facility Start: 06-28-2025 End: 06-28-2025 ambulatory Sharif Christianson [place] [place] Start: 06-22-2025 ambulatory Sharif Christianson Facilit y:[facility] Start: 06-10-2025 ambulatory Sharif Christianson Facilit y:[facility] Start: 06-10-2025 End: 06-10-2025 ambulatory Sharif Christianson Facility:[facility] Start: 06-07-[address] Ines Waldrop MD -[facility] Start: 06-07-2025 End: 06-07-2025 Patient encounter procedure Sabi Lynn NP- -[facility] Work Phone: Start: 06-07-2025 End: 06-07-[address] Sharif Christianson MD Work Phone: [facility] Start: 06-01-2025 End: 06-01-[address] Dave Rossi MD -[facility] Work Phone: Start: 06-01-2025 End: 06-01-[address] Sharif Christianson MD Work Phone: -[facility] Start: 05-17-2025 End: 05-17-[address] Shannan Waldrop MD -[facility] Work Phone: Start: 05-17-2025 End: 05-17-2025 Dr. Shannan Waldrop MD -[facility] Work Phone: Start: 05-17-2025 End: 05-17-[address] Sharif Christianson MD Work Phone: [facility] Start: 04-26-[address] Ines Waldrop MD -[facility] Start: 04-26-2025 End: 04-26-[address] Shannan Waldrop MD -[facility] Work Phone: Start: 04-26-2025 End: 04-26-2025 Dr. Shannan Waldrop MD -[facility] Work Phone: Start: 04-26-2025 End: 04-26-[address] Sharif Christianson MD Work Phone: [facility] Start: 04-21-2025 End: 04-21-[address] Sharif Christianson MD Work Phone: -[facility] Start: 04-21-2025 End: 04-21-[address] [facility] Start: 04-21-2025 End: 04-21-2025 Dr. Sharif Christianson MD -Laboratory [facility] Start: 04-21-2025 End: 04-21-2025 ambulatory Sharif Christianson Facility:[facility] Start: 04-05-[address] Ines Waldrop MD -[facility] Start: 04-05-2025 End: 04-05-[address] Eder Davis MD -[facility] Work Phone: Start: 04-05-2025 End: 04-05-2025 Dr. Shannan Waldrop MD -[facility] Work Phone: Start: 04-05-2025 End: 04-05-[address] Sharif Christianson MD Work Phone: -[facility] Start: 04-05-2025 End: 04-05-[address] Sharif Christianson MD Work Phone: -Cat Scan [facility] Start: 04-05-2025 End: 04-05-2025 Patient encounter procedure Xenia Gilliland PA -Cat Scan [facility] Work Phone: Start: 04-05-2025 End: 04-05-2025 Xenia Gilliland PA -Cat Scan [facility] Work Phone: Start: 04-05-2025 End: 04-05-2025 ambulatory Sharif Christianson Facility:[facility] Start: 03-28-2025 End: 03-28-[address] Sharif Christianson MD Work Phone: -Cat Scan [facility] Start: 03-28-2025 End: 03-28-[address] Shannan Waldrop MD -Cat Scan [facility] Work Phone: Start: 03-28-2025 End: 03-28-2025 Dr. Shannan Waldrop MD -Cat Scan [facility] Work Phone: Start: 03-28-2025 End: 03-28-2025 ambulatory Sharif Christianson Facility:[facility] Start: 03-15-[address] Ines Waldrop MD -[facility] Start: 03-15-2025 End: 03-15-[address] Nic Hall MD -[facility] Work Phone: Start: 03-15-2025 End: 03-15-2025 Dr. Nic Hall MD -[facility] Work Phone: Start: 03-15-2025 End: 03-15-[address] Sharif Christianson MD Work Phone: -[facility] Start: 03-08-2025 End: 03-08-[address] Sharif Christianson MD Work Phone: -[facility] Start: 03-08-2025 End: 03-08-2025 Patient encounter procedure Xenia Gilliland HI -Radiology [facility] Work Phone: Start: 03-08-2025 End: 03-08-2025 Xenia WALKER -Radiology [facility] Work Phone: Start: 03-08-2025 End: 03-08-2025 Patient encounter procedure Xenia WALKER -[facility] Work Phone: Start: 03-08-2025 End: 03-08-2025 Xenia WALKER -[facility] Work Phone: Start: 03-08-2025 End: 03-08-[address] Sharif Christianson MD Work Phone: -[facility] Start: 03-08-2025 End: 03-08-2025 ambulatory Sharif Christianson Facility:[facility] Start: 02-22-[address] Ines Waldrop MD -[facility] Start: 02-22-2025 End: 02-22-2025 Patient encounter procedure Sabi Lynn NP-C -[facility] Work Phone: Start: 02-22-2025 End: 02-22-2025 Sabi DAVISON -[facility] Work Phone: Start: 02-22-2025 End: 02-22-[address] Sharif Christianson MD Work Phone: -[facility] Start: 01-25-2025 End: 01-25-[address] Shannan Waldrop MD -[facility] Work Phone: Start: 01-25-2025 End: 01-25-2025 Dr. Shannan Waldrop MD -[facility] Work Phone: Start: 01-25-2025 End: 01-25-[address] Sharif Christianson MD Work Phone: [facility] Work Phone: Start: 01-25-[address] Ines Waldrop MD -[facility] Start: 01-20-2025 End: 01-20-[address] Sharif Christianson MD Work Phone: [facility] Work Phone: Start: 01-20-2025 End: 01-20-[address] Sharif Christianson MD -[facility] Start: 01-20-2025 End: 01-20-2025 Dr. Sharif Christianson MD -[facility] Start: 01-20-2025 End: 01-20-2025 ambulatory Sharif Christianson Facility:[facility] Start: 01-04-[address] Ines Waldrop MD -[facility] Start: 01-04-2025 End: 01-04-[address] Shannan Waldrop MD -[facility] Work Phone: Start: 01-04-2025 End: 01-04-[address] Sharif Christianson MD Work Phone: [facility] Work Phone: Start: 12-14-2024 End: 12-14-[address] Shannan Waldrop MD -[facility] Work Phone: Start: 12-14-2024 End: 12-14-2024 ambulatory Sharif Christianson Facility:[facility] Start: 11-30-2024 End: 11-30-[address] Sharif Christianson MD Work Phone: [facility] Work Phone: Start: 11-30-2024 End: 11-30-2024 Patient encounter procedure Sabi Lynn COUNTER TACKER-C -Cat Scan, [facility] Work Phone: Start: 11-30-2024 End: 11-30-2024 ambulatory Sharif Christianson Facility:[facility] Start: 11-23-[address] Ines Waldrop MD -[facility] Start: 11-23-2024 End: 11-23-2024 Patient encounter procedure Sabi Lynn NP-C -[facility] Work Phone: Start: 11-23-2024 End: 11-23-2024 ambulatory Sharif Christianson Facility:[facility] Start: 11-10-2024 End: 11-10-2024 Patient encounter procedure Xenia WALKER -[facility] Work Phone: Start: 11-10-2024 End: 11-10-2024 ambulatory Sharif Christianson Facility:[facility] Start: 11-02-2024 End: 11-02-2024 Patient encounter procedure Sabi Lynn COUNTER TACKER-C -[facility] Work Phone: Start: 11-02-2024 End: 11-02-2024 ambulatory Sharif Christianson Facility:[facility] Start: 10-12-2024 End: 10-12-[address] Shannan Waldrop MD -[facility] Work Phone: Start: 10-12-2024 End: 10-12-2024 ambulatory Shannan Waldrop Facility:[facility] Start: 09-21-2024 End: 09-21-2024 Patient encounter procedure Sabi Lynn COUNTER TACKER-C -[facility] Work Phone: Start: 09-21-2024 End: 09-21-2024 ambulatory Sabi Lynn COUNTER TACKER Facility:[facility] Start: 09-20-2024 End: 09-20-[address] Sharif Christianson MD -Cardiovascular Services Work Phone: Start: 09-20-2024 End: 09-20-2024 ambulatory Sharif Christianson Facility:[facility] Start: 09-06-2024 End: 09-06-[address] Shannan Waldrop MD -[facility] Work Phone: Start: 09-06-2024 End: 09-06-2024 ambulatory Shannan Waldrop Facility:[facility] Start: 08-31-2024 End: 08-31-[address] Shannan Waldrop MD -Cat Scan, [facility] Work Phone: Start: 08-31-2024 End: 08-31-[address] Sharif Christianson MD -Laboratory, Specimen Work Phone: Start: 08-31-2024 End: 08-31-2024 Patient encounter procedure Ivonne Mendoza HI -[facility] Work Phone: Start: 08-31-2024 End: 08-31-2024 ambulatory Sharif Christianson Facility:[facility] Start: 08-31-2024 End: 08-31-2024 ambulatory Shannan Waldrop Facility:[facility] Start: 08-26-2024 End: 08-26-[address] Sharif Christianson MD -Laboratory, [facility] Start: 08-26-2024 End: 08-26-2024 ambulatory Sharif Christianson Facility:[facility] Start: 08-23-2024 ambulatory Sharif Christianson Facilit y:[facility] Start: 08-09-2024 End: 08-09-2024 Patient encounter procedure Sabi Lynn COUNTER TACKER-C -[facility] Work Phone: Start: 08-09-2024 End: 08-09-2024 ambulatory Sharif Christianson Facility:[facility] Start: 07-27-2024 End: 07-27-2024 ambulatory Sharif Christianson [place] [place] Start: 07-27-2024 End: 07-27-2024 ambulatory Sabi Lynn NP Facility:[facility] Start: 07-20-2024 End: 07-20-2024 ambulatory Sharif Christianson Facility:[facility] Start: 07-12-2024 End: 07-12-2024 ambulatory Sharif Christianson Facility:[facility] Start: 07-05-2024 End: 07-05-2024 ambulatory Sharif Christianson Facility:[facility] Start: 01-07-[address] Sharif Christianson MD Work Phone: [facility] Start: 12-18-2023 End: 12-18-[address] Sharif Christianson Work Phone: [facility] Work Phone: Start: 12-18-2023 End: 12-18-[address] Sharif Christianson Work Phone: [facility] Work Phone: Start: 12-08-2023 End: 12-08-[address] Sharif Christianson Work Phone: [facility] Work Phone: Start: 12-02-[address] Sharif Christianson Work Phone: [facility] Start: 11-28-2023 End: 11-28-[address] Sharif Christianson Work Phone: [facility] Work Phone: Start: 11-28-2023 End: 11-28-[address] Sharif Christianson Work Phone: [facility] Work Phone: Start: 10-30-2023 End: 10-30-[address] Sharif Christianson Work Phone: [facility] Work Phone: Start: 10-06-2023 End: 10-06-[address] Sharif Christianson Work Phone: [facility] Work Phone: Start: 09-25-2023 End: 09-25-2023 ambulatory COUNTER TACKER-C Iris Clayton Work Phone: [facility] Work Phone: Start: 09-25-2023 End: 09-25-2023 Patient encounter procedure COUNTER TACKER-C Iris Clayton Work Phone: [facility] Start: 09-24-2023 End: 09-24-2023 ambulatory COUNTER TACKER-C Iris Clayton Work Phone: [facility] Work Phone: Start: 09-24-2023 End: 09-24-2023 Patient encounter procedure COUNTER TACKER-C Iris Clatyon Work Phone: [facility] Start: 09-09-2023 Registered Recurring COUNTER TACKER-C Kendy [facility] Start: 09-09-2023 End: 09-09-2023 Patient encounter procedure COUNTER TACKER-C Iris Clayton Work Phone: [facility] Work Phone: Start: 09-08-2023 End: 09-08-2023 Patient encounter procedure COUNTER TACKER-C Iris Clayton Work Phone: [facility] Work Phone: Start: 09-03-2023 End: 09-03-2023 Patient encounter procedure COUNTER TACKER-C Iris Clayton Work Phone: [facility] Work Phone: Start: 09-01-2023 End: 09-01-2023 Patient encounter procedure COUNTER TACKER-C Iris Clayton Work Phone: [facility] Work Phone: Start: 08-27-2023 End: 08-27-2023 Patient encounter procedure COUNTER TACKER-C Iris Clayton Work Phone: [facility] Work Phone: Start: 08-25-2023 End: 08-25-2023 Patient encounter procedure COUNTER TACKER-C Iris Clayton Work Phone: [facility] Work Phone: Start: 08-20-2023 End: 08-20-2023 Patient encounter procedure COUNTER TACKER-C Iris Clayton Work Phone: [facility] Work Phone: Start: 08-19-2023 End: 08-19-2023 Patient encounter procedure COUNTER TACKER-C Iris Clayton Work Phone: [facility] Work Phone: Start: 08-13-2023 End: 08-13-2023 Patient encounter procedure COUNTER TACKER-C Iris Clayton Work Phone: [facility] Work Phone: Start: 08-12-2023 End: 08-12-2023 Patient encounter procedure COUNTER TACKER-C Iris Clayton Work Phone: [facility] Work Phone: Start: 08-06-2023 End: 08-06-2023 Patient encounter procedure COUNTER TACKER-C Iris Clayton Work Phone: [facility] Work Phone: Start: 08-04-2023 End: 08-04-2023 Patient encounter procedure COUNTER TACKER-C Iris Clayton Work Phone: [facility] Work Phone: Start: 07-30-2023 End: 07-30-2023 Patient encounter procedure COUNTER TACKER-Rupal Clayton Work Phone: [facility] Work Phone: Start: 07-29-2023 Registered Recurring COUNTER TACKER-Rupal Clayton Work Phone: [facility] [facility] Start: 07-28-2023 End: 07-28-2023 Patient encounter procedure COUNTER TACKER-Rupal Clayton Work Phone: [facility] Work Phone: Start: 07-24-2023 End: 07-24-2023 ambulatory COUNTER TACKER-C Iris Clayton Work Phone: [facility] Work Phone: Start: 07-24-2023 End: 07-24-2023 Patient encounter procedure COUNTER TACKER-Rupal Clayton Work Phone: [facility] Work Phone: Start: 07-22-2023 Non-patient / Non-visit COUNTER TACKER-C Rupal Clayton Work Phone: [facility] Start: 07-22-2023 End: 07-22-2023 Admission to same day surgery center COUNTER TACKER-Rupal Clayton Work Phone: [facility]-Surgical Day Care Start: 07-22-2023 End: 07-22-2023 ambulatory COUNTER TACKER-Rupal Clayton Work Phone: [facility] Work Phone: Start: 07-22-2023 Non-patient / Non-visit COUNTER TACKER-C Rupal Clayton Work Phone: [facility] Start: 07-18-2023 End: 07-18-2023 Patient encounter procedure COUNTER TACKER-Rupal Clayton Work Phone: [facility] Work Phone: Start: 07-17-2023 End: 07-17-2023 Patient encounter procedure COUNTER TACKER-Rupal GalarzaIris Harvinderhoward Work Phone: [facility] Work Phone: Start: 07-16-2023 End: 07-16-2023 Admission to same day surgery center COUNTER TACKER-Rupal Clayton Work Phone: [facility]-[place] [facility] Trimmer/Special Procedures Work Phone: Start: 07-15-2023 Non-patient / Non-visit COUNTER TACKER-C Rupal Clayton Work Phone: [facility] Start: 07-15-2023 Registered Recurring COUNTER TACKER-Rupal Clayton Work Phone: [facility]-Radiation Oncology Start: 07-04-2023 End: 07-04-2023 Patient encounter procedure COUNTER TACKER-Rupal Clayton Work Phone: [facility] Work Phone: Start: 07-04-2023 End: 07-04-2023 Patient encounter procedure COUNTER TACKER-Rupal Clayton Work Phone: [facility] Work Phone: Start: 07-02-2023 End: 07-02-2023 Patient encounter procedure COUNTER TACKER-Rupal Clayton Work Phone: [facility] Work Phone: Start: 06-19-2023 End: 06-19-2023 ambulatory SUDISH PETER Facility:[facility] Start: 06-14-2023 Non-patient / Non-visit COUNTER TACKER-C Rupal Clayton Work Phone: [facility] Work Phone: Start: 06-13-2023 Non-patient / Non-visit COUNTER TACKER-C Rupal Clayton Work Phone: [facility] Start: 06-12-2023 Non-patient / Non-visit COUNTER TACKER-C Rupal davies Matilde Work Phone: [facility] Start: 06-12-2023 Non-patient / Non-visit COUNTER TACKER-C Rupal davies Matilde Work Phone: [facility] Work Phone: Start: 06-11-2023 End: 06-14-2023 Evaluation and management of inpatient [facility]-Intensive Care Unit Work Phone: Start: 05-27-2023 Registered Recurring [facility] On[facility] Start: 05-22-2023 ambulatory SELF SELF Facility:[facility] Start: 05-01-2023 End: 05-01-2023 ambulatory COUNTER TACKER-C Iris Clayton Work Phone: [facility] Work Phone: Start: 05-01-2023 End: 05-01-2023 Patient encounter procedure COUNTER TACKER-C Iris Clayton Work Phone: [facility] Phone: Start: 04-01-2023 End: 04-01-2023 ambulatory COUNTER TACKER-C Iris Clayton Work Phone: [facility] Work Phone: Start: 04-01-2023 End: 04-01-2023 Patient encounter procedure COUNTER TACKER-C Iris Clayton Work Phone: [facility] Work Phone: Start: 03-11-2023 End: 03-11-2023 ambulatory COUNTER TACKER-C Iris Clayton Work Phone: [facility] Work Phone: Start: 03-11-2023 End: 03-11-2023 Patient encounter procedure COUNTER TACKER-C Iris Clayton Work Phone: [facility]-Outpatient Breast Imaging Work Phone: Start: 01-29-2023 Registered Recurring COUNTER TACKER-C Kendy kohli Barkman Work Phone: [facility] Oncology Start: 01-29-2023 End: 01-29-2023 Patient encounter procedure COUNTER TACKERTim Clayton Work Phone: [facility] Work Phone: Start: 12-04-2022 End: 12-04-[address] Sharif Christianson Work Phone: [facility] Work Phone: Start: 12-04-2022 End: 12-04-[address] [facility] Start: 11-06-2022 End: 11-06-[address] Sharif Christianson Work Phone: [facility] Start: 10-09-2022 Non-patient / Non-visit Dr. Yessenia Christianson Work Phone: [facility] Start: 10-09-2022 End: 10-09-[address] Sharif Christianson Work Phone: [facility] Work Phone: Start: 10-09-2022 End: 10-09-[address] [facility] Christians[facility] Start: 10-01-2022 End: 10-01-[address] Sharif Christianson Work Phone: [facility] Start: 08-13-2022 End: 08-13-[address] Sharif Christianson Work Phone: [facility] Work Phone: Start: 08-13-2022 End: 08-13-[address] Sharif Christianson Work Phone: [facility] Start: 07-30-[address] Sharif Christianson Work Phone: [facility] Oncology Start: 07-30-2022 End: 07-30-[address] Sharif Christianson Work Phone: [facility] Start: 07-29-2022 End: 07-29-[address] Sharif Christianson Work Phone: [facility] Work Phone: Start: 07-29-2022 End: 07-29-[address] Sharif Christianson Work Phone: [facility]-Laboratory, Specimen Start: 06-12-2022 End: 06-12-[address] Sharif Christianson Work Phone: [facility]-Occupational Therapy Start: 06-11-2022 End: 06-11-[address] Sharif Christianson Work Phone: [facility] Work Phone: Start: 06-11-2022 End: 06-11-[address] Sharif Christianson Work Phone: [facility]-Pulmonary Services/Neurology Start: 05-30-2022 End: 05-30-[address] Sharif Christianson Work Phone: [facility] Start: 05-23-2022 End: 05-23-2022 ambulatory SHARIF CHRISTIANSON Facility:[facility] Start: 05-23-2022 End: 05-23-2022 Patient encounter procedure Bryce Greer MD Work Phone: [facility] Comment on above: Acute subdural hemat lisa (Primary Dx); Intracranial hemorrhage (HCC) Start: 05-23-2022 End: 05-23-2022 Subsequent hospital visit by physician [facility]Spine RADIO CT [facility]AN [place] [employer] Comment on above: Intracranial hemorrh age (HCC) [I62.9] Start: 05-07-2022 End: 05-07-2022 ambulatory SHARIF CHRISTIANSON Facility:[facility] Start: 05-07-2022 End: 05-07-2022 Patient encounter procedure Bryce Greer MD Work Phone: [facility] Comment on above: Intracranial hemorrh age (HCC) (Primary Dx) Start: 05-02-[address] Sharif Christianson Work Phone: [facility] Oncology Start: 04-29-2022 End: 04-29-[address] Sharif Christianson Work Phone: [facility] Start: 04-23-2022 End: 04-23-2022 Emergency department patient visit Dr. Sharif Christianson Work Phone: [facility]-Emergency Department Start: 04-18-2022 End: 04-18-2022 ambulatory SHARIF CHRISTIANSON Facility:[facility] Start: 04-18-2022 End: 04-18-2022 Subsequent hospital visit by physician [facility]Sp[facility] RADIO CT [facility] [place] [employer] Comment on above: Subdural hemorrhage (HCC) [I62.00] Start: 04-18-2022 End: 04-18-2022 Patient encounter procedure Bryce Greer MD Work Phone: [facility] Comment on above: Intracranial hemorrh age (HCC) (Primary Dx) Start: 04-17-2022 Non-patient / Non-visit Dr. Yessenia Christianson Work Phone: [facility] Inpatient Physicians Start: 04-15-2022 Non-patient / Non-visit Dr. Yessenia Christianson Work Phone: [facility] Inpatient Physicians Start: 04-12-2022 Non-patient / Non-visit Dr. Yessenia Christianson Work Phone: [facility] Inpatient Physicians Start: 04-10-2022 Telephone encounter Bryce Greer MD Work Phone: [facility] Comment on above: Post Op Start: 04-10-2022 Non-patient / Non-visit Dr. Yessenia Christianson Work Phone: [facility] Inpatient Physicians Start: 04-09-2022 Non-patient / Non-visit Dr. Yessenia Christianson Work Phone: [facility] Inpatient Physicians Start: 04-09-2022 Telephone encounter Donna LOPEZ Comment on above: Follow Up Phone Call (Post Discharge F/U - attempt made. No answer.) Start: 04-08-2022 Non-patient / Non-visit Dr. Yessenia Christianson Work Phone: [facility] Inpatient Physicians Start: 04-05-2022 Non-patient / Non-visit Dr. Yessenia Christianson Work Phone: [facility] Inpatient Physicians Start: 04-05-2022 End: 04-17-2022 Evaluation and management of inpatient Dr. Sharif Christianson Work Phone: [facility]-Rehab Unit Start: 03-28-2022 End: 04-05-2022 Evaluation and management of inpatient GISELA NIC MONTOYA Facility:[facility] Start: 03-28-2022 ambulatory Ana MALONEY RN.MILANESE KNITTING MACHINE OPERATOR Work Phone: Critical Care Start: 03-28-2022 End: 03-28-2022 Emergency department patient visit Dr. Sharif Christianson Work Phone: [facility]-Emergency Department Start: 03-25-[address] Sharif Christianson Work Phone: [facility] Oncology Start: 03-12-2022 End: 03-12-2022 ambulatory SHARIF CHRISTIANSON Facility:[facility] Start: 03-12-2022 End: 03-12-2022 Patient encounter procedure Bryce Greer MD Work Phone: [facility] Comment on above: Intracranial hemorrh age (HCC) (Primary Dx) Start: 03-06-2022 End: 03-06-[address] Sharif Christianson Work Phone: [facility] Start: 03-04-[address] Sharif Christianson Work Phone: [facility] Oncology Start: 03-04-2022 End: 03-04-[address] Sharif Christianson Work Phone: [facility] Start: 02-14-2022 End: 02-14-2022 ambulatory SHARIF CHRISTIANSON Facility:[facility] Start: 02-14-2022 End: 02-14-2022 Patient encounter procedure Bryce Greer MD Work Phone: [facility] Comment on above: Intracranial hemorrh age (HCC) (Primary Dx); Acquired skull defect Start: 02-07-2022 Telephone encounter Donna LOPEZ Comment on above: Follow Up Phone Call (All Clear) Start: 02-01-2022 End: 02-04-2022 Evaluation and management of inpatient BRYCE GREER Facility:[facility] Start: 01-28-2022 End: 01-28-[address] Sharif Christianson Work Phone: [facility] Start: 01-22-2022 End: 01-23-2022 ambulatory KACY GLEZ Facility:[facility] Start: 01-22-2022 Encounter for other preprocedural examination LOAN RIVAS [facility] Start: 01-22-2022 End: 01-22-2022 Admission to [facility] [address] [facility] Start: 01-22-2022 End: 01-22-2022 ambulatory [facility] 1 Pre Surgical Testing Comment on above: Preop examination; Defect of skull; Hypertension, unspecified type; Diabetes mellitus without complication (HCC); Coronary artery disease involving [place] coronary artery of [place] heart without angina pectoris Start: 01-22-2022 End: 01-22-2022 Preprocedural examination done Pst 1 Pre Surgical Testing Start: 01-17-2022 Orders Only Bryce dooley MD Work Phone: [facility] Comment on above: Skull defect (Primar y Dx) Start: 01-15-2022 End: 01-15-2022 Patient encounter procedure Bryce Greer MD Work Phone: [facility] Comment on above: Intracranial hemorrh age (HCC) (Primary Dx); Acquired skull defect Start: 01-15-2022 End: 01-15-2022 ambulatory BRYCE GREER Facility:[facility] Start: 01-15-2022 End: 01-15-2022 Subsequent hospital visit by physician [facility]IO [facility] [place] [employer] Comment on above: Intracranial hemorrh age (HCC) [I62.9] Start: 01-09-2022 End: 01-09-[address] Sharif Christianson Work Phone: [facility] Work Phone: Start: 01-09-2022 End: 01-09-[address] [facility] Christians[facility] Start: 01-09-[address] Shar[facility] Christians[facility] Start: 01-07-2022 End: 01-07-[address] Sharif Christianson Work Phone: [facility] Start: 12-18-2021 End: 12-18-2021 ambulatory BRYCE GREER Facility:[facility] Start: 12-17-[address] Sharif Christianson Work Phone: [facility] Oncology Start: 12-13-[address] Sharif Christians[facility] Start: 12-06-2021 End: 12-06-[address] Sharif Christianson Work Phone: [facility] Start: 12-05-2021 End: 12-05-[address] Sharif Christianson Work Phone: [facility] Start: 11-20-2021 End: 11-20-2021 ambulatory LOAN RIVAS Facility:[facility] Start: 11-10-2021 Orders Only Loan lewis PA-C Work Phone: [place] [facility] Comment on above: Intracranial hemorrh age (HCC) Start: 10-28-2021 End: 11-14-2021 Evaluation and management of inpatient REUBEN PLASENCIA Facility:[facility] Start: 10-27-2021 End: 10-27-2021 Emergency department patient visit Dr. Sharif Christianson Work Phone: [facility]-Emergency Department Start: 10-01-2021 End: 10-01-[address] Sharif Christianson Work Phone: [facility] Start: 09-17-2021 End: 09-17-[address] Sharif Christianson Work Phone: [facility] Start: 09-05-2021 End: 09-05-[address] Sharif Christianson Work Phone: [facility] Procedures Date Procedure Procedure Detail Performing Clinician Start: 06-07-[address] Sharif Christianson MD Work Phone: Start: 06-07-2025 Serum inorganic phos phate measurement Dr. Sharif Christianson MD Work Phone: Start: 05-17-2025 Blood count smear rscp w/mnl difrntl wbc count Dr. Sharif Christianson MD Work Phone: Start: 05-17-[address] Sharif hCristianson MD Work Phone: Start: 05-17-2025 Mean corpuscular hemoglobin concentration determination Dr. Sharif Christianson MD Work Phone: Start: 05-17-2025 Nucleated red blood cell count procedure Dr. Sharif Christianson MD Work Phone: Start: 05-17-2025 Platelet mean volume determination Dr. Sharif Christianson MD Work Phone: Start: 05-17-2025 Serum inorganic phos phate measurement Dr. Sharif Christianson MD Work Phone: Start: 04-26-2025 Blood count smear mc rscp w/mnl difrntl wbc count Dr. Sharif Christianson MD Work Phone: Start: 04-26-[address] Sharif Christianson MD Work Phone: Start: 04-26-2025 Mean corpuscular hemoglobin concentration determination Dr. Sharif Christianson MD Work Phone: Start: 04-26-2025 Nucleated red blood cell count procedure Dr. Sharif Christianson MD Work Phone: Start: 04-26-2025 Platelet mean volume determination Dr. Sharif Christianson MD Work Phone: Start: 04-26-2025 Serum inorganic phos phate measurement Dr. Sharif Christianson MD Work Phone: Start: 04-21-2025 Blood count smear mc rscp w/mnl difrntl wbc count Dr. Sharif Christianson MD Work Phone: Start: 04-21-2025 Mean corpuscular hemoglobin concentration determination Dr. Sharif Christianson MD Work Phone: Start: 04-21-2025 Nucleated red blood cell count procedure Dr. Sharif Christianson MD Work Phone: Start: 04-21-2025 Platelet mean volume determination Dr. Sharif Christianson MD Work Phone: Start: 04-21-2025 Total cholesterol:HD L ratio measurement Dr. Sharif Christianson MD Work Phone: Start: 04-21-2025 Urine microscopy: re d cells Dr. Sharif Christianson MD Work Phone: Start: 04-21-2025 Urnls dip stick/tabl et reagent auto microscopy Dr. Sharif Christianson MD Work Phone: Start: 04-05-[address] Sharif Christianson MD Work Phone: Start: 04-05-2025 Serum inorganic phos phate measurement Dr. Sharif Christianson MD Work Phone: Start: 04-05-2025 CT of abdominal aort a with contrast Dr. Sharif Christianson MD Work Phone: Start: 03-28-2025 CT of thorax and abd [...] Phone: Start: 01-25-[address] Sharif Christianson MD Work Phone: Start: 01-25-2025 Serum inorganic phos phate measurement Dr. Sharif Christianson MD Work Phone: Start: 01-20-2025 Blood count smear rscp w/mnl difrntl wbc count Dr. Sharif Christianson MD Work Phone: Start: 01-20-2025 Mean corpuscular hemoglobin concentration determination Dr. Sharif Christianson MD Work Phone: Start: 01-20-2025 Nucleated red blood cell count procedure Dr. Sharif Christianson MD Work Phone: Start: 01-20-2025 Platelet mean volume determination Dr. Sharif Christianson MD Work Phone: Start: 01-20-2025 Total cholesterol:HD L ratio measurement Dr. Sharif Christianson MD Work Phone: [...] Dr. Sharif Christianson MD Work Phone: Start: 07-27-2024 Myelocyte percent differential count Dr. Sharif Christianson MD Work Phone: Start: 06-28-[address] Sharif Christianson MD Work Phone: Start: [...] MD Work Phone: Start: 08-19-2023 Urine culture COUNTER TACKER-Rupal Clayton Work Phone: Start: 08-19-2023 Dr. Sharif farmer MD Work Phone: Start: 08-19-[address] Sharif Christianson MD Work Phone: Start: 08-19-[address] Sharif Christianson MD Work Phone: Start: 07-24-2023 MRI of brain with contrast COUNTER TACKER-Rupal Clayton Work Phone: Start: 07-22-2023 Radiographic procedu re of chest COUNTER TACKER-Rupal Clayton Work Phone: Start: 07-22-2023 Implantation to cardiovascular system COUNTER TACKER-Rupal Clayton Work Phone: Start: 07-22-2023 Fluoroscopic guidance N PTim Clayton Work Phone: Start: 06-11-2023 CT angiography of ch est with contrast Start: 06-11-2023 CT of head without contrast Start: 06-11-2023 Plain chest X-ray Start: 06-11-2023 SARS-CoV-2 & FLU Ant igen (Rapid) Start: 06-11-2023 Viral antigen assay COUNTER TACKER- Rupal Clayton Work Phone: Start: 05-27-2023 Positron emission tomography with computed tomography Start: 05-01-2023 Plain chest X-ray BAYLEE-Rupal Clayton Work Phone: Start: 05-01-2023 Plain chest X-ray LANEY Clayton Work Phone: Start: 05-01-2023 Biopsy/Inj or Needle Placement COUNTER TACKERTim Clayton Work Phone: Start: 04-01-2023 CT of chest without contrast COUNTER TACKER-C Iris Matilde Work Phone: Start: 03-11-2023 Screening mammography N P-C Iris Harvinderhoward Work Phone: Start: 04-23-2022 CT of head without contrast Dr. Sharif Christianson Work Phone: Start: 04-12-2022 Diagnostic radiograp hy of abdomen Dr. Sharif Christianson Work Phone: Start: 03-28-2022 Antibody screen LOAN RIVAS Comment on above: Order Comment: Speci men Type: BLOOD SPECIMENOrdering Facility: [facility] Address: [address] [place] [address] Performed By: #### T SCR ####[facility] BLOOD BANKIA [id number] [address] Start: 03-28-2022 CT angiography of head Dr. Sharif Christianson Work Phone: Start: 03-28-2022 CT of head without contrast Dr. Sharif Christianson Work Phone: Start: 03-06-2022 Screening mammography Kb Christianson Work Phone: Start: 03-06-2022 CT of chest without contrast Dr. Sharif Christianson Work Phone: Start: 02-01-2022 H/O: surgery History of cranioplasty Donna Morales RN Start: 01-15-2022 Ct head/brain w/o co ntrast material Kacy Glez [employer] ENGINEER.MILANESE KNITTING MACHINE OPERATOR Work Phone: Start: 10-28-2021 Antibody screen LOAN RIVAS Comment on above: Order Comment: Speci men Type: BLOOD SPECIMENOrdering Facility: [facility] Address: [address] [place] [address] Performed By: #### T SCR ####[facility] BLOOD BANKIA [id number] [address] Start: 10-27-2021 CT cervical spine wi thout [...] [AGGREGATE] Kevin Womack Start: 05-30-2016 End: 05-30-[address] SIGN INSTALLER-C Start: 05-30-2016 End: 05-30-2016 Follow Up Appt [address] SIGN INSTALLER -C Start: 10-18-2015 End: 12-30-2016 *Hepatic Function [...] stent placement Ivonne WALKER Comment on above: VAL-TLY-Wwhwma LCx w / 3.0 x 12 mm Promus Premier Stent 10/10/15 Bacteria identified in Urine by Culture Dr. Sharif Christianson Work Phone: Urine culture Dr. Sharif moreno Work Phone: Urine culture Dr. Sharif moreno Work Phone: Viral antigen assay Dr. Sharif Christianson Work Phone: Plan of Treatment Date Care Activity Detail Author Start: 06-22-2025 Radiologic exam chest 2 views Chest PA and Lateral [facility] Start: 06-22-2025 Patient encounter procedure Registered Clinical -Radiology [place] Work Phone: Start: 06-10-2025 Non-patient / Non-visit Non-patient / Non-visit -[facility] Start: 06-10-2025 End: 06-10-2025 Patient encounter procedure -Cardiovascu lar Services Work Phone: Start: 06-07-2025 Registered Recurring Registered Recurring -[facility] Start: 06-07-2025 End: 06-07-2025 Patient encounter procedure Cancer of upper lobe of left lung -[facility] Work Phone: Start: 05-17-2025 Serum inorganic phosphate measurement [facility] Start: 05-17-2025 Thyroid stimulating hormone measurement [facility] Start: 04-05-2025 Serum inorganic phosphate measurement [facility] Start: 04-05-2025 Thyroid stimulating hormone measurement [facility] Start: 04-05-2025 [facility] Start: 04-05-2025 Venous catheter care management [facility] Start: 04-05-2025 CT of abdominal aorta with contrast [facility] Start: 03-28-2025 Following clinical pathway protocol [facility] Start: 03-15-2025 [facility] Start: 03-15-2025 Serum inorganic phosphate measurement [facility] Start: 03-15-2025 Thyroid stimulating hormone measurement [facility] Start: 02-22-2025 [facility] Start: 01-25-2025 [facility] Start: 01-04-2025 [facility] Start: 11-30-2024 Venous catheter care management [facility] Start: 11-22-2024 DIABETES SCREEN DIABETES SCREEN [facility] Start: 11-10-2024 DIABETES SCREEN DIABETES SCREEN [facility] Start: 08-31-2024 Venous catheter care management [facility] Start: 12-18-2023 Venous catheter care management [facility] Start: 12-02-2023 PET study for localization of tumor PET/CT Tumor Base -Thigh Subs [facility] Start: 12-02-2023 PT Unspecified body region [facility] Start: 10-30-2023 Vital signs measurements [facility] Start: 10-09-2023 Vital signs measurements [facility] Start: 07-28-2023 Venous catheter care management [facility] Start: 07-24-2023 Venous catheter care management [facility] Start: 07-22-2023 Anesthesia access central venous circulation ANESTH VASCULAR ACCESS [facility] Start: 07-22-2023 Insj tunneled ctr vad w/subq port age 4 yr/> INSERT TUNNELED CV CATH [facility] Start: 07-22-2023 Patient discharge [facility] Start: 07-17-2023 Patient referral [facility] Work Phone: Start: 07-16-2023 Patient discharge [facility] Start: 07-04-2023 Evaluation of diagnostic study results [facility] Start: 06-19-2023 Blood chemistry [facility] Start: 06-18-2023 Blood chemistry [facility] Start: 06-17-2023 Blood chemistry [facility] Start: 06-16-2023 Blood chemistry [facility] Start: 06-15-2023 Blood chemistry [facility] Start: 06-14-2023 Patient discharge [facility] Start: 06-14-2023 [facility] Start: 06-13-2023 Patient referral [facility] Work Phone: Start: 06-13-2023 Referral to occupational therapist [facility] Start: 06-13-2023 Referral to service [facility] Start: 06-11-2023 Following clinical pathway protocol [facility] Start: 06-11-2023 Assessment of risk of venous thromboembolism [facility] Start: 06-11-2023 Care regimes management [facility] Start: 06-11-2023 Catheterization of vein [facility] Start: 06-11-2023 Insertion of catheter into peripheral vein [facility] Start: 06-11-2023 Measuring intake and output [facility] Start: 06-11-2023 Notification of physician [facility] Start: 06-11-2023 Oxygen therapy [facility] Start: 06-11-2023 Providing care according to standard [facility] Start: 06-11-2023 Provision of activity privileges [facility] Start: 06-11-2023 Referral to conductor/engineer [facility] Start: 06-11-2023 Tobacco use cessation education [facility] Start: 06-11-2023 Electrocardiographic procedure [facility] Start: 06-11-2023 Verification routine [facility] Start: 06-11-2023 Admission procedure [facility] Start: 06-11-2023 Hospital admission, emergency, from emergency room, medical nature [facility] Start: 06-11-2023 Troponin I measurement [facility] Start: 06-11-2023 End: 06-11-2023 [facility] Start: 05-23-2023 BP CONTROLLED (<130/80) BP CONTROLLED (<130/80) [facility] Start: 05-07-2023 BP CONTROLLED (<130/80) BP CONTROLLED (<130/80) [facility] Start: 05-01-2023 CORE NDL BX LNG/MED PERQ CORE NDL BX LNG/MED PERQ [facility] Start: 05-01-2023 Following clinical pathway protocol [facility] Start: 05-01-2023 Catheterization of vein [facility] Start: 05-01-2023 Oxygen therapy [facility] Start: 05-01-2023 Patient discharge [facility] Start: 05-01-2023 Vital signs measurements [facility] Start: 04-18-2023 BP CONTROLLED (<130/80) BP CONTROLLED (<130/80) [facility] Start: 03-12-2023 BP CONTROLLED (<130/80) BP CONTROLLED (<130/80) [facility] Start: 02-14-2023 BP CONTROLLED (<130/80) BP CONTROLLED (<130/80) [facility] Start: 01-22-2023 BP CONTROLLED (<130/80) BP CONTROLLED (<130/80) [facility] Start: 10-28-2022 Influenza vaccination LUNG CANCER SCREENING [facility] Start: 05-18-2022 Hemoglobin A1c/Hemoglobin.total in Blood HBA1C [facility] Start: 04-18-2022 Influenza vaccination [facility] Start: 04-17-2022 Patient discharge [facility] Work Phone: Start: 04-10-2022 Following clinical pathway protocol [facility] Work Phone: Start: 04-09-2022 End: 04-09-2022 [facility] Work Phone: Start: 04-09-2022 Introduction of urinary catheter [facility] Work Phone: Start: 04-09-2022 Following clinical pathway protocol [facility] Work Phone: Start: 04-09-2022 Catheterization of vein [facility] Work Phone: Start: 04-05-2022 [facility] Work Phone: Start: 04-05-2022 Application of intermittent pneumatic compression device [facility] Work Phone: Start: 04-05-2022 Urinary bladder training [facility] Work Phone: Start: 04-05-2022 Referral to service [facility] Work Phone: Start: 04-05-2022 Admission procedure [facility] Work Phone: Start: 04-05-2022 Patient referral to dietitian [facility] Work Phone: Start: 04-05-2022 Referral to occupational therapist [facility] Work Phone: Start: 04-05-2022 Verification routine [facility] Work Phone: Start: 04-05-2022 Vital signs measurements [facility] Work Phone: Start: 04-05-2022 End: 04-05-2022 [facility] Work Phone: Start: 04-05-2022 Incentive spirometry [facility] Work Phone: Start: 04-05-2022 Speech therapy assessment [facility] Work Phone: Start: 03-28-2022 Aspiration precautions [facility] Work Phone: Start: 02-01-2022 End: 01-15-2023 Choriogonadotropin ( test) [Presence] in Urine HCG QUAL UR Lab Routine Intracranial hemorrhage (HCC) Acquired skull defect Expected: 02/01/2022, Expires: 01/15/2023 [facility] Work Phone: Comment on above: Expected: 02/01/2022, Expires: 3 Start: 01-30-2022 End: 01-15-2023 SARS-CoV-2 (COVID-19) RNA [Presence] in Respiratory specimen by NADEEM with probe detection PRE-PROCEDURE & PRE-OPERATIVE COVID Microbiology Routine Intracranial hemorrhage (HCC) Acquired skull defect Expected: 01/30/2022, Expires: 01/15/2023 [facility] Work Phone: Comment on above: Expected: 01/30/2022, Expires: 3 Start: 01-25-2022 End: 01-15-2023 aPTT in Platelet poor plasma by Coagulation assay ACTIVATED PTT Lab Routine Intracranial hemorrhage (HCC) Acquired skull defect Expected: 01/25/2022, Expires: 01/15/2023 [facility] Work Phone: Comment on above: Expected: 01/25/2022, Expires: 3 Start: 01-25-2022 End: 01-15-2023 Basic metabolic 2000 panel - Serum or Plasma BASIC METABOLIC PNL Lab Routine Intracranial hemorrhage (HCC) Acquired skull defect Expected: 01/25/2022, Expires: 01/15/2023 [facility] Work Phone: Comment on above: Expected: 01/25/2022, Expires: 3 Start: 01-25-2022 End: 01-15-2023 CBC panel - Blood by Automated count CBC Lab Routine Intracranial hemorrhage (HCC) Acquired skull defect Expected: 01/25/2022, Expires: 01/15/2023 [facility] Work Phone: Comment on above: Expected: 01/25/2022, Expires: 3 Start: 01-25-2022 End: 01-15-2023 PT panel - Platelet poor plasma by Coagulation assay PROTHROMBIN TIME/PT Lab Routine Intracranial hemorrhage (HCC) Acquired skull defect Expected: 01/25/2022, Expires: 01/15/2023 [facility] Work Phone: Comment on above: Expected: 01/25/2022, Expires: 3 Start: 10-15-2021 COVID-19 VACCINE (5 - Booster for Moderna series) COVID-19 VACCINE (5 - Booster for Moderna series) [facility] Start: 08-18-2021 ADVANCE DIRECTIVE DISCUSSION ADVANCE DIRECTIVE DISCUSSION [facility] Start: 08-18-2021 DEPRESSION ASSESSMENT DEPRESSION ASSESSMENT [facility] Start: 04-18-2021 Influenza vaccination INFLUENZA (#1) [facility] Start: 10-10-2020 LIPID SCREEN LIPID SCREEN [facility] Start: 01-01-2020 BONE DENSITY BONE DENSITY [facility] Start: 01-01-2020 PNEUMOVAX AGE 65 AND OVER WITH 5YR LOOKBACK (#1) PNEUMOVAX AGE 65 AND OVER WITH 5YR LOOKBACK (#1) [facility] Start: 07-14-2019 Colonoscopy COLONOSCOPY [facility] Start: 07-14-2019 COLORECTAL CANCER SCREENING COLORECTAL CANCER SCREENING [facility] Start: 12-30-2017 Hepatitis B surface antibody level LDL CHOLESTEROL [facility] Start: 07-02-2017 End: 01-04-2017 *Hepatic Function Panel *Hepatic Function Panel [facility] Work Phone: Start: 07-02-2017 End: 01-04-2017 Lipid panel [AGGREGATE] *Lipid Profile CC PCP [facility] Work Phone: Start: 06-06-2017 End: 06-06-2017 Appointment Appointment [facility] Work Phone: Start: 06-06-2017 End: 06-06-2017 Appointment Appointment [facility] Work Phone: Start: 12-05-2016 End: 12-30-2016 *Hepatic Function Panel *Hepatic Function Panel [facility] Work Phone: Start: 12-05-2016 End: 12-05-2016 Follow Up Appt 6 months Follow Up Appt 6 months [facility] Work Phone: Start: 12-05-2016 End: 12-30-2016 Lipid panel [AGGREGATE] *Lipid Profile CC PCP [facility] Work Phone: Start: 12-05-2016 End: 12-05-2016 MMM MMM [facility] Work Phone: Start: 10-10-2016 Hepatitis B surface antibody level LDL CHOLESTEROL [facility] Start: 05-30-2016 End: 05-30-2016 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 [facility] Work Phone: Start: 05-30-2016 End: 05-30-2016 Follow Up Appt 6 months Follow Up Appt 6 months [facility] Work Phone: Start: 10-18-2015 End: 12-30-2016 *Hepatic Function Panel *Hepatic Function Panel [facility] Work Phone: Start: 10-18-2015 End: 05-20-2016 Follow Up Appt 6 months Follow Up Appt 6 months [facility] Work Phone: Start: 10-18-2015 End: 12-30-2016 Lipid panel [AGGREGATE] *Lipid Profile CC PCP [facility] Work Phone: Start: 10-18-2015 End: 05-20-2016 MMM MMM [facility] Work Phone: Start: 2004 SHINGRIX VACCINE (1 of 2) SHINGRIX VACCINE (1 of 2) [facility] Start: 01-01-2000 COLOGUARD (FIT-DNA) COLOGUARD (FIT-DNA) [facility] Start: 01-01-2000 Colonoscopy COLONOSCOPY [facility] Start: 01-01-2000 COLORECTAL CANCER SCREENING COLORECTAL CANCER SCREENING [facility] Start: 01-01-[address] COLONOGRAPHY [facility] Start: 01-01-2000 FECAL OCCULT BLOOD FECAL OCCULT BLOOD [facility] Start: 01-01-2000 SIGMOIDOSCOPY SIGMOIDOSCOPY [facility] Start: 1994 Mammography MAMMOGRAM [facility] Start: 1973 Urine microalbumin profile DTAP,TDAP,TD (1 - Tdap) [facility] Start: 1972 ANNUAL PCP TEAM CHRONIC DISEASE VISIT ANNUAL PCP TEAM CHRONIC DISEASE VISIT [facility] Start: 1972 HEPATITIS C SCREENING HEPATITIS C SCREENING [facility] Start: 1966 Adult depression screening assessment DEPRESSION SCREENING [facility] Start: 1964 3 comp foot exam completed DIABETIC FOOT EXAM [facility] Start: 1964 Hepatitis B screening URINE ALBUMIN:CREATININE RATIO [facility] Start: 1964 Hepatitis C antibody, confirmatory test DILATED RETINAL EXAM [facility] Start: 1960 PNEUMOCOCCAL: 65+ (1 - PCV) PNEUMOCOCCAL: 65+ (1 - PCV) [facility] Alanine aminotransfe rase [Enzymatic activity/volume] in Serum or Plasma [facility] Alanine aminotransfe rase [Enzymatic activity/volume] in Serum or Plasma [facility] Alanine aminotransfe rase [Enzymatic activity/volume] in Serum or Plasma [facility] Albumin [Mass/volume ] in Serum or Plasma [facility] Albumin [Mass/volume ] in Serum or Plasma [facility] Albumin [Mass/volume ] in Serum or Plasma [facility] Alkaline phosphatase [Enzymatic activity/volume] in Serum or Plasma [facility] Alkaline phosphatase [Enzymatic activity/volume] in Serum or Plasma [facility] Alkaline phosphatase [Enzymatic activity/volume] in Serum or Plasma [facility] Anion gap in Serum or Plasma [facility] Anion gap in Serum or Plasma [facility] Anion gap in Serum or Plasma [facility] Bilirubin, total measurement [facility] Bilirubin, total measurement [facility] Bilirubin, total measurement [facility] BUN/Creatinine ratio [facility] BUN/Creatinine ratio [facility] BUN/Creatinine ratio [facility] Calcium [Mass/volume ] in Serum or Plasma [facility] Calcium [Mass/volume ] in Serum or Plasma [facility] Calcium [Mass/volume ] in Serum or Plasma [facility] Carbon dioxide, tota l [Moles/volume] in Central venous blood [facility] Carbon dioxide, tota l [Moles/volume] in Central venous blood [facility] Carbon dioxide, tota l [Moles/volume] in Central venous blood [facility] Catheterization of left heart [facility] CBC W Auto Different ial panel - Blood [facility] Work Phone: CBC W Auto Different ial panel - Blood [facility] CBC W Auto Different ial panel - Blood [facility] CBC W Auto Different ial panel - Blood [facility] Cortisol [Mass/volum e] in Serum or Plasma [facility] Creatinine [Mass/vol ume] in Serum or Plasma [facility] Creatinine [Mass/vol ume] in Serum or Plasma [facility] Creatinine [Mass/vol ume] in Serum or Plasma [facility] CT Abdomen and Pelvi s W contrast IV [facility] End: 04-18-2022 CT BRAIN WO IVCON [facility] Work Phone: Comment on above: 1 Occurrences starting 04/18/2022 until 04/18/2022 End: 06-06-[address]23 CT BRAIN WO IVCON CT BRAIN WO IVCON Radiology Routine Intracranial hemorrhage (HCC) 1 Occurrences starting 05/07/2022 until 06/06/2023 [facility] Work Phone: Comment on above: 1 Occurrences starting 05/07/2022 until 06/06/2023 End: 05-23-2022 CT BRAIN WO IVCON [facility] Work Phone: Comment on above: 1 Occurrences starting 05/23/2022 until 05/23/2022 CT Chest and Abdomen W contrast IV [facility] End: 12-10-2022 Ct head/brain w/o contrast material CT BRAIN WO IVCON Radiology Routine Intracranial hemorrhage (HCC) 1 Occurrences starting 11/10/2021 until 12/10/2022 [facility] Work Phone: Comment on above: 1 Occurrences starting 11/10/2021 until 12/10/2022 CT of abdominal aort a with contrast [facility] End: 01-15-2023 ECG COMPLETE ECG COMPLETE ECG Routine Intracranial hemorrhage (HCC) Acquired skull defect 1 Occurrences starting 01/15/2022 until 01/15/2023 [facility] Work Phone: Comment on above: 1 Occurrences starting 01/15/2022 until 01/15/2023 Erythrocyte mean cor puscular volume determination [facility] Erythrocyte mean cor puscular volume determination [facility] Erythrocyte mean cor puscular volume determination [facility] Ferritin [Mass/volum e] in Serum or Plasma [facility] Work Phone: Ferritin [Mass/volum e] in Serum or Plasma [facility] Ferritin [Mass/volum e] in Serum or Plasma [facility] Glucose [Mass/volume ] in Serum or Plasma [facility] Glucose [Mass/volume ] in Serum or Plasma [facility] Glucose [Mass/volume ] in Serum or Plasma [facility] H&P for surgery H&P FOR SURGERY Procedures Routine Intracranial hemorrhage (HCC) Acquired skull defect Or[facility]: [facility]15/2022 [facility] Work Phone: Comment on above: Ordered: 01/15/2022 Hematocrit [Volume F raction] of Blood [facility] Hematocrit [Volume F raction] of Blood [facility] Hematocrit [Volume F raction] of Blood [facility] Hemoglobin [Mass/vol ume] in Blood [facility] Hemoglobin [Mass/vol ume] in Blood [facility] Hemoglobin [Mass/vol ume] in Blood [facility] Iron and Iron bindin g capacity panel - Serum or Plasma [facility] Work Phone: Iron and Iron bindin g capacity panel - Serum or Plasma [facility] Iron and Iron bindin g capacity panel - Serum or Plasma [facility] Leukocytes [#/volume ] in Blood [facility] Leukocytes [#/volume ] in Blood [facility] Leukocytes [#/volume ] in Blood [facility] Magnesium [Mass/volu me] in Serum or Plasma [facility] Magnesium measurement [facility] Magnesium measurement [facility] Mean corpuscular hem oglobin concentration determination [facility] Mean corpuscular hem oglobin concentration determination [facility] Mean corpuscular hem oglobin concentration determination [facility] Mean corpuscular hem oglobin determination [facility] Mean corpuscular hem oglobin determination [facility] Mean corpuscular hem oglobin determination [facility] Measurement of renal function [facility] Measurement of renal function [facility] Measurement of renal function [facility] MR Brain WO and W contrast IV [facility] Neutrophil count [facility] Neutrophil count [facility] Neutrophil count [facility] Neutrophil percent differential count [facility] Neutrophil percent differential count [facility] Neutrophil percent differential count [facility] NM Whole body Bone Views [facility] Patient Education [facility] [employer] Work Phone: Patient referral [facility] Work Phone: Platelets [#/volume] in Blood [facility] Platelets [#/volume] in Blood [facility] Platelets [#/volume] in Blood [facility] Potassium measurement [facility] Potassium measurement [facility] Potassium measurement [facility] PT Unspecified body region [facility] Red blood cell count [facility] Red blood cell count [facility] Red blood cell count [facility] Red cell distributio n width determination [facility] Red cell distributio n width determination [facility] Red cell distributio n width determination [facility] Serum chloride measurement [facility] Serum chloride measurement [facility] Serum chloride measurement [facility] Serum inorganic phos phate measurement [facility] Sodium measurement [facility] Sodium measurement [facility] Sodium measurement [facility] T4 free measurement [facility] T4 free measurement [facility] Total protein measurement [facility] Total protein measurement [facility] Total protein measurement [facility] Urea nitrogen [Mass/ volume] in Serum or Plasma [facility] Urea nitrogen [Mass/ volume] in Serum or Plasma [facility] Urea nitrogen [Mass/ volume] in Serum or Plasma [facility] Urinalysis complete panel - Urine [facility] XR Lumbar spine 2 or 3 Views [facility] Immunization Date Immunization Notes Care Provider Caprice garcia 08-20-2021 Covid (Moderna) Dr. Sharif Mcnamara inner Work Phone: [facility] 12-28-2020 Covid (Moderna) Dr. Sharif Mcnamara inner Work Phone: [facility] 11-30-2020 Covid (Moderna) Dr. Sharif Mcnamara inner Work Phone: [facility] Payers Date Payer Category Payer Medicaid [id number] 2023 Self-pay [id number] 2020 [place] [employer] [id number] 2020-Present [phone] [address] [place] [address] O [id number] [id number] 2020 Medicare [id number] 2020 Medicare [id number]. 1.13.159.2.7.3.6 02944.315 1955 Unknown [id number] 2.0.1.673144.3.579.2.594 Unknown [id number] Unknown [id number] Unknown 1.2.840.675030. 1.13.159.2.7.3.6 98057.315 Unknown [id number] Unknown [id number] 2.16.840.1.452603.3.579.2.462 Unknown [id number] 2.16.840.1.073399.3.579.2.462 Unknown [id number] 2.16.840.1.117008.3.579.2.462 Unknown [id number] 2.16.840.1.246817.3.579.2.462 Unknown [id number] 2.16.840.1.238924.3.579.2.462 Unknown [id number] 2.16.840.1.544525.3.579.2.462 Unknown [id number] 2.840.1.942226.3.579.2.462 Unknown [id number] 2.840.1.204254.3.579.2.462 Unknown [id number] 2.840.1.636854.3.579.2.462 Unknown [id number] 2.840.1.624988.3.579.2.462 Unknown [id number] 2.16.840.1.746253.3.579.2.462 Unknown [id number] 2.16840.1.623137.3.579.2.462 Unknown [id number] 2.16.840.1.725122.3.579.2.462 Unknown [id number] 2.840.1.894306.3.579.2.462 Unknown [id number] 2.16840.1.119595.3.579.2.462 Unknown [id number] 2.16.840.1.337309.3.579.2.462 Unknown [id number] 2.16.840.1.524777.3.579.2.462 Unknown [id number] 2.16.840.1.520089.3.579.2.462 Unknown [id number] 2.16840.1.332870.3.579.2.462 Unknown [id number] 2.16.840.1.091714.3.579.2.462 Unknown [id number] 2.840.1.915057.3.579.2.462 Unknown [id number] 2.16840.1.091613.3.579.2.462 Unknown [id number] 2.840.1.625534.3.579.2.462 Unknown [id number] 2.840.1.229041.3.579.2.462 Unknown [id number] 2.840.1.754266.3.579.2.462 Unknown [id number] 2.840.1.883741.3.579.2.462 Unknown [id number] 2.840.1.348287.3.579.2.462 Unknown [id number] 2.840.1.901232.3.579.2.462 Unknown [id number] 2.840.1.458389.3.579.2.462 Unknown [id number] 2.840.1.579033.3.579.2.462 Unknown [id number] 2.840.1.116279.3.579.2.462 Unknown [id number] 2.840.1.363875.3.579.2.462 Unknown [id number] 2.840.1.242633.3.579.2.462 Unknown [id number] 2.840.1.966928.3.579.2.462 Unknown [id number] 2.840.1.173774.3.579.2.462 Unknown [id number] 2.840.1.299315.3.579.2.462 Unknown [id number] 2.840.1.414300.3.579.2.462 Unknown [id number] 2.840.1.090190.3.579.2.462 Unknown [id number] 2.16.840.1.047429.3.579.2.462 Unknown [id number] 2.16.840.1.159045.3.579.2.462 Unknown [id number] 2.16.840.1.016453.3.579.2.462 Social History Date Type Detail Facility Start: 01-22-2022 End: 04-18-2022 Tobacco smoking status NHIS Smokes tobacco daily [facility] Work Phone: History of tobacco use Cigarette Smoker [facility] Work Phone: Start: 01-23-2021 End: 05-23-2022 Alcohol intake Current drinker of alcohol (finding) [facility] Start: 10-08-2019 End: 04-01-2022 History SDOH Alcohol Frequency 2 [facility] Start: 10-08-2019 Tobacco Comment using patch tr lauren to quit 6 cigs daily [facility] Start: 1955 Sex Assigned At Not on file [facility] Start: 10-18-2021 End: 05-23-2022 Exposure to SARS-CoV-2 (event) Not sure [facility] Start: 12-13-2021 End: 10-06-2023 Tobacco smoking status MOIS Unknown if ever smoked [facility] Start: 09-27-2020 Cigarettes [facility] Start: 1955 Sex Assigned At Female [facility] Start: 01-22-2022 End: 04-18-2022 Cigarettes smoked current (pack per day) - Reported 1 [facility] Start: 01-22-2022 End: 04-18-2022 Tobacco use and exposure Smokeless tobacco non-user [facility] Work Phone: Start: 04-01-2022 History SDOH Financial 5 [facility] Start: 04-01-2022 History SDOH Food Worry 1 [facility] Start: 04-18-2022 Tobacco Comment Currently usin g nicotine patches [facility] Start: 05-26-2024 End: 05-26-2024 Tobacco smoking status NHIS Ex-smoker (finding) [facility] Start: 12-03-2024 Sex Female (finding) [facility] Sex [facility] NEGATED: Highlighted row [facility] Medical Equipment Procedure Code Equipment Code Equipment Origin al Text Equipment Identifier Dates Insertion, vascular access port [id number] Start: 07-22-[address] us Bovine Collagen Matrix 3x3in Soft Tissue Patch - [id number] Start: 10-28-[address] us Bovine Collagen Matrix 3x3in Soft Tissue Patch - [id number] Start: 10-28-[address] us Bovine Collagen Matrix 2x2in Soft Tissue Patch - [id number] Start: 10-28-2021 Agent Avitene Co llagen Hemostatic Microfibrillar Flour Sterile Latex Free 1 - [id number] Start: 10-28-2021 Hhu-Om-I-Kind Im plant - [id number] Start: 02-01-2022 Cover [place] Craniofacial .6mm 10mm Dome Latex Free Nonsterile - [id number] Start: 02-01-2022 Cover [place] Craniofacial 14mmx.6mm Dome Nonsterile - [id number] Start: 02-01-2022 Screw Bone Unive rsal Neuro 3 4mm 1.5mm Self Drill Axial Stability Latex - [id number] Start: 02-01-2022 Cover [place] Craniofacial 14mmx.6mm Dome Nonsterile - [id number] Start: 03-28-2022 Comment on above: Description: Wavemar k interface issue. Screw Bone Unive rsal Neuro 3 4mm 1.5mm Self Drill Axial Stability Latex - [id number] Start: 03-28-2022 Comment on above: Description: WaveMar k interface issue. Goals Date Patient Goal Desired Activity /State Functional Status Date Assessment Result Facility 06-14-2023 Functional status Ambulates;Up ad kelly [facility] Work Phone: 04-17-2022 Functional status Activity Abili ty Standby Assist [facility] Work Phone: 04-16-2022 Functional status Ambulates [facility] Work Phone: Mental Status Date Assessment Result Facility 05-19-2024 Cognitive function Voice/Name [facility] Work Phone: 10-20-2023 Cognitive function Awake;Alert;Appropriat e [facility] Work Phone: 10-08-2023 Cognitive function Arousable To Voice/Nam e [facility] Work Phone: 07-22-2023 Cognitive function Voice/Name [facility] Work Phone: 06-14-2023 Cognitive function Voice/Name [facility] Work Phone: 06-11-2023 Cognitive function Level Of Cons ciousness Awake;Alert;Appropriate;Follow s Commands [facility] Work Phone: 05-01-2023 Cognitive function Awake;Alert;Appropriat e [facility] Work Phone: 05-02-2022 Cognitive function Awake;Alert;A ppropriate;Follow s Commands [facility] Work Phone: 04-23-2022 Cognitive function Level Of Cons ciousness Awake;Alert;Appropriate;Follow s Commands [facility] Work Phone: 04-17-2022 Cognitive function Appropriate;Cooperativ e [facility] Work Phone: 04-16-2022 Cognitive function Voice/Name [facility] Work Phone: 03-28-2022 Cognitive function Level Of Cons ciousness Awake;Alert;Appropriate;Follow s Commands [facility] Work Phone: 03-25-2022 Cognitive function Voice/Name [facility] Work Phone: 12-17-2021 Cognitive function Awake;Alert;A ppropriate;Follow s Commands [facility] Work Phone: 10-22-2021 Cognitive function Arousable To Voice/Nam e [facility] Work Phone: Clinical Notes 10-21-2016 to 06-07-2025 Note Date & Type Note Facility 06-07-2025 Progress note [facility] 06-01-2025 Progress note [facility] 06-01-2025 Progress note Note Date/Time June 01, 2025 3:16pm [facility] [address] [place] [address] OFFICE VISIT Date of Service: 06/01/25 MR#: [id number] Acct: [id number] Name: KAELYN POWERS Rep #: [id number] : 1955 Provider: Dr. Dave Rossi MD Age/Sex: 69/F [place] [facility] Status: Signed Intake Vital Signs 04/05/25 12:31 05/17/25 13:13 06/01/25 14:22 Height 5 ft 1 in 5 ft 1 in Weight: 191 lb BP 113/68 Blood Pressure Location Lt brachial Position Sitting Respiration 14 Pulse 76 Pulse Source Monitor Temp 97.8 F Temp Source Temporal Pulse Oximetry (%) 97 Oxygen Delivery Method room air Intake Visit Reasons: Discuss Results Is patient in pain?: Yes Allergies oxycodone (From Percocet) Allergy (Intermediate, Verified 06/01/25 14:23) Itching Medications ?Medication ?Instructions ?Recorded ?Confirmed ?Type oxybutynin chloride 15 mg 15 mg PO DAILY bladder 10/0106/01/25 History tablet,extended release 24 hr metformin 1,000 mg tablet 1,000 mg PO BID dm 10/01/22 06/01/25 History ondansetron 8 mg disintegrating 8 mg PO Q8H PRN nausea and 06/02/24 06/01/25 Rx tablet vomiting #30 tabs lisinopril 5 mg tablet 5 mg PO QDAY 08/31/24 History Disability Placard #1 ea 09/07/24 06/01/25 Rx lidocaine-prilocaine 2.5 %-2.5 % 1 applic topical ONCE PRN port 11/02/24 06/01/25 Rx topical cream access 30 days #30 grams omeprazole 20 mg tablet,delayed 20 mg PO QDAY 12/14/24 06/01/25 History release pembrolizumab 25 mg/mL intravenous 200 mg (8 mL) .Rout e .COMPLEX #8 mL 12/30/24 06/01/25 Rx solution cholecalciferol (vitamin D3) 1,250 1,250 mcg PO QWEEK 04/05/25 06/01/25 History mcg (50,000 unit) capsule metoprolol tartrate 25 mg tablet 25 mg PO QDAY #90 tab s 04/05/25 06/01/25 Rx cilostazol 100 mg tablet 100 mg PO BID #180 tabs 03/1906/01/25 Rx levothyroxine 88 mcg tablet 88 mcg PO QDAY 04/26/25 History (Levoxyl) oxycodone-acetaminophen 5 mg-325 1 tab PO Q12H PRN 06/01/25 History mg tablet Is last menstrual period known: No Post menopausal: Yes Patient : No Have you fallen in the past year?: No PFSH Medical History Dizziness on standing Metastasis to lung Hypothyroidism Encounter for antineoplastic immunotherapy At high risk [...] Claudication Obesity Atherosclerosis of coronary artery of [place] heart without angina pectoris Essential (primary) hypertension [...] 2 current occupational status: employed 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 mary beth/sikh: Hindu seatbelt use: always do you feel safe at home: Yes HPI HPI HPI: KAELYN POWERS, is a 69 F who presents to the office today for follow up discussion of LLE pain worse with standing and walking mostly focused at anterior-medial calf. She had prior arterial intervention many years prior for more classic claudication pain which resolved her symptoms. She has had prior physiologic arterial studies that showed moderate arterial insufficiency bilateral with drop after exercise. She has had a CTA and is here to discuss. Noprior venous imaging. ROS General General: No weight change, appetite, fatigue, colon cancer, breast cancer or weakness HEENT HEENT: No difficulty swallowing, eye injury, eye surgery, swollen glands or hoarseness Endo Endocrine: Yes diabetes mellitus and cold intolerance; No thyroid disease, thyroid cancer, Hair loss or heat intolerance Skin Skin: No rash or changing moles Musc Musculoskeletal: Yes back problems, arthritis, rheumatoid arthritis and joint pain; No gout Cardio Cardiovascular: Yes heart attack and heart stent; No murmur, pacemaker, heart disease, atrial fibrillation, high blood pressure, palpitations, shortness of breath with exertion or chest pain Psych Psychiatric: No depression, anxiety or hearing voices Resp Respiratory: No shortness of breath, No sleep apnea, No cough, No COPD, No asthma, No emphysema and No wheezing Gastro Gastrointestinal: No abdominal pain, No nausea or vomiting, No diarrhea, Yes constipation, No blood in stool, Yes acid reflux, No hemorrhoids, No ulcers, No gallbladder problem and No black,tarry stools Michael Hematologic: No blood thinners, No blood disorders, No bleeding, No anemia and No blood clots Neuro Neurologic: No system reviewed and no additional complaints, except as documented, No as per HPI, No abnormal gait, No abnormal hearing, No abnormal movements, No abnormal speech, No behavioral changes, Yes burning sensations, Yes confusion, No convulsions, Yes disequilibrium, Yes dizziness, No localized weakness, No frequent falls, Yes headache(s) (occasional), No lack of coordination, No loss of vision, No memory loss, Yes numbness, No other visual disturbances, Yes radicular pain, Yes restless legs, No sensory deficit, No syncope, Yes tingling, No tremor(s), No weakness and No other Exam Const General: cooperative, healthy appearing, comfortable, no acute distress and welldeveloped Nutritional Appearance: well nourished Orientation: alert, awake and oriented x3 [facility] Head: normocephalic and atraumatic Ears: hearing grossly normal bilaterally Nose: external nose normal Eyes General: appearance normal, both eyes and all related structures EOM: EOM intact bilaterally Neck Neck: normal visual inspection, full ROM, no lymphadenopathy and trachea midline Thyroid: thyroid normal Lymphatic: no lymphadenopathy noted Resp Effort & Inspection: normal respiratory effort, able to speak in complete sentences, symmetric chest movement, no audible wheezes, not labored, no stridorand no use of accessory muscles Auscultation: clear to auscultation bilaterally Cardio Rate: regular rate Rhythm: regular rhythm Heart Sounds: no murmurs Bruits: no carotid bruits Pulses: brachial pulses present, radial pulses present, popliteal pulses not present, posterior tibial pulses not present and dorsalis pedis pulses not present Skin General: no rashes or lesions noted and no erythema Wounds: no wounds Neuro Cranial Nerves: CN's II-XI intact bilaterally and EOM intact bilaterally Speech: speech normal Gait: normal gait Motor: strength 5/5 throughout Sensory Exam: no sensory deficits noted Extremities Veins: Left: Varicose Veins Psych Appearance: grossly normal and well kempt Mental Status: mental status grossly normal Mood: congruent mood Speech and Movement: speech and movement normal Thought Content: normal Judgment: judgment good Coding Level of Care Code Off vis,est,level 3 Diagnoses Varicose veins of left lower extremity with pain I83.812 Assessment and Plan Assessment and Plan (1) Varicose veins of left lower extremity with pain: Status: Chronic Comment: CTA- long segment SFA occlusion with dense calcium at origin, reconstitution at popliteal above knee. scattered calcified moderate stenosis in common/external iliac Plan: -location of pain directly at large varicosities -no significant symptoms in calf muscle and not always associated with walking -will obtain venous reflux study, trial measured compression -return 2 months Orders: Orders 2 Venous Duplex US, Unilateral Today I83.812 - Varicose veins of left lower extremity with pain, I87.2 - Venous insufficiency (chronic) (peripheral) Clinical Quality Measures Falls Risk Screening/Assistive Devices Have you fallen in the past year?: No 06/01/25 1720 <Electronically signed by Dave Quiles> Date _ Dave Rossi MD Cosigner Signature: Date (if applicable) CC: ~ [facility] Work Phone: 1(710) 774-968308-20-2025 Radiology Diagnostic study note [facility] [address] [place] [id number] CTA Abd w/Runoff W/WO Contrast MR#: [id number] Acct: [id number] Name: KAELYN POWERS Rep #: [id number] : 1955 F 69 From: Raciel Nunez MD PCP: Dr. Sharif Christianson MD Status: RE G CLI Study:CTA Abd w/Runoff W/WO Contrast Date of Exam: 04/05/25 Exam# [id number] Ordering Dr: Suleiman Gilliland PROCEDURE: CTA ABD W/RUNOFF W/WO CONTRAST 04/05/2025 REASON FOR EXAM: SHORT DISTANCE CLAUDICATION TECHNIQUE: CTA ABD W/RUNOFF W/WO CONTRAST Multiplanar Sagittal and Coronal images were obtained. 3D and or MIPS post processing was performed CONTRAST: Isovue 370 VOLUME: 100 mL One or more dose reduction techniques were used (e.g., Automated exposure control, adjustment of the mA and/or kV according to patient size, use of iterative reconstruction technique). RADIATION DOSE SUMMARY: CTDlvol: 11.3 mGy DLP: 1470.24 mGycm COMPARISON: None FINDINGS: Aorta: Moderate mixed calcified and soft plaque. No abdominal aortic aneurysm. Iliac Arteries: Marked degree of atherosclerotic calcific plaque formation of both common iliac arteries worse on the left side. Celiac: Atherosclerotic plaque formation at its origin. SMA: Atherosclerotic plaque formation at its origin. GABRIELLE : Not visualized. Right Renal: Atherosclerotic plaque formation at its origin. Left Renal: Atherosclerotic plaque formation at its origin. Lower Extremity Runoff (Bilateral): Common Femoral Arteries: Atherosclerotic plaque formation the common femoral arteries bilaterally. Superficial Femoral Arteries: Short-segment occlusion of the proximal portion ofthe left superficial femoral artery. There is evidence of scattered atherosclerotic plaque throughout the course of both superficial femoral arteries worse on the left side. Profunda Femoris Arteries: Unremarkable Popliteal Arteries: The right popliteal artery is patent. The left popliteal artery is patent. Tibial and Peroneal Arteries: Patent bilaterally. Distal Runoff: Three-vessel runoff in both legs. Extravascular Findings: Coronary artery calcification. Mild bibasilar atelectasis. Diffuse fatty infiltration of the liver. Diffuse pancreatic atrophy. CT/CTA Abd w/Runoff W/WO Contrast IMPRESSION: Short-segment occlusion of the proximal portion of the left superficial femoral artery. Reconstitution with the evidence of three-vessel runoff in both lower extremities. Reading Location: [id number] CC: DENISE Miranda; Dr. Sharif Christianson MD ~ Baggage Handler: Signed [facility]08-19-2025 Progress [facility] [address] [place] [address] OFFICE VISIT Date of Service: 04/05/25 1229 MR#: [id number] Acct: [id number] Name: KAELYN POWERS Rep #: [id number] : 1955 From: Shannan romero MD Age/Sex: 69/F Location: [place] Status: Signed HPI Subjective Date of Service 04/05/25 Chief Complaint NSCLC on treatment History of [...] ANTIBODY / CLONE RESULT ER (6F11) negative IN (1E2) negative AE1-3 (AE1/AE3/PCK26) positive CK7 (OV-TL12/30) positive CK8 (78hbywQ25) positive CK20 (KS20.8) negative TTF-1 (8G7G3/1) positive [...] disease. May 2023: Patient was seen at [facility] by thoracic surgery Dr. Peter and was tentatively scheduled to have definitive [...] top-normal caliber of the CBD is similar. March 28, 2025 CT chest and abdomen: IMPRESSION: Coronary artery calcification (CAC) is is [...] abdomen and pelvis recommended for further evaluation. Treatment summary and response: * Definitive concomitant [...] Partial remission then rapid relapse in less than6 months. * Second line therapy Alimta February?April 2024: Progressive disease * Third line therapy with single agent gemcitabine (combination with nivolumab was denied by insurance): June 2024?August 2024 had excessive bone marrow toxicity, dose reduction and treatment delays: Progressive disease * Fourth line systemic therapy with pembrolizumab September 21, 2024. 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 mary beth/sikh: Hindu seatbelt use: always do you feel safe at home: Yes ROS ROS Narrative I feel great Constitutional Constitutional: Reports systems reviewed and no [...] no addt'l complaints, except as documented and constipation; Denies abdominal pain, change in bowel habits, hematochezia, melena or nausea Genitourinary Genitourinary: Reports systems reviewed and no addt'l complaints, except as documented and urinary frequency; Denies dysuria or hematuria Musculoskeletal Musculoskeletal: Reports systems reviewed and no addt'l complaints, except as documented, arthralgias and other Details: Right SI joint area pain, she takes oxycodone 5 Mg as needed Integumentary Integumentary: Reports systems reviewed and no addt'l complaints, except as documented and other Details: Rash resolved and no longer using topical steroid ; Denies new lesions Neurologic Neurologic: Reports systems [...] complaints, except as documented Intake Vital Signs 01/25/25 13:16 04/05/25 12:31 Height 5 ft 1 in 5 ft 1 in Weight: 85.842 kg BMI 35.7 BP 120/74 Blood Pressure Location Rt brachial Position Sitting Respiration 16 Pulse 69 Pulse Source Monitor Temp 97.8 F Temperature Source Temporal Artery Pulse Oximetry (%) 95 Oxygen Delivery Method room air Intake Is patient in pain?: Yes (left leg) Allergies oxycodone (From Percocet) Allergy (Intermediate, Verified 04/05/25 12:34) Itching Medications ?Medication ?Instructions ?Recorded ?Confirmed ?Type oxybutynin chloride 15 mg 15 mg PO DAILY bladder 10/0104/05/25 History tablet,extended release 24 hr metformin 1,000 mg tablet 1,000 mg PO BID dm 10/01/22 04/05/25 History bupropion HCl 150 mg tablet,12 hr 150 mg PO Q12H 06/1104/05/25 History sustained-release ondansetron 8 mg disintegrating 8 mg PO Q8H PRN nausea and 06/02/24 04/05/25 Rx tablet vomiting #30 tabs lisinopril 5 mg tablet 5 mg PO QDAY 08/31/24 History Disability Placard #1 ea 09/07/24 04/05/25 Rx lidocaine-prilocaine 2.5 %-2.5 % 1 applic topical ONCE PRN port 11/02/24 Rx topical cream access 30 days #30 grams omeprazole 20 mg tablet,delayed 20 mg PO QDAY 12/14/24 04/05/25 History release pembrolizumab 25 mg/mL intravenous 200 mg (8 mL) .Rout e .COMPLEX #8 mL 12/30/24 04/05/25 Rx solution levothyroxine 50 mcg tablet 50 mcg PO QDAY #90 tabs 04/05/25 Rx (Synthroid) oxycodone-acetaminophen 5 mg-325 1 tab PO Q6H PRN 01/1604/05/25 History mg tablet cilostazol 100 mg tablet 100 mg PO BID #60 tabs 04/0404/05/25 Rx cholecalciferol (vitamin D3) 1,250 1,250 mcg PO QWEEK 04/05/25 04/05/25 History mcg (50,000 unit) capsule metoprolol tartrate 25 mg tablet 25 mg PO QDAY #90 tab s 04/05/25 04/05/25 Rx Have you fallen in the past year?: No Exam Physical Exam Narrative ECOG 1 Const [...] no focal motor deficits Coordination / Balance: gfhbmn-wq-shay test normal Speech: speech normal Gait (Neuro): normal gait Coding Level of Care Code Off vis,est,level 4 Exam Problem Focused Diagnoses Cancer of upper lobe of left lung C34.12 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 Hypothyroidism type: due to medication Malignant neoplasm metastatic to both lungs C78.01; C78.02 Laterality: bilateral Assessment and Plan Assessment and Plan (1) Cancer of upper lobe of left lung: Status: Chronic (2) Hypothyroidism: Status: Chronic Qualifiers: Hypothyroidism type: due to medication Qualified Code(s): E03.2 - Hypothyroidism due to medicamentsand other exogenous substances Comment: Secondary to PD-L1 inhibitor immunotherapy (3) Metastasis to lung: Status: Chronic Qualifiers: Laterality: bilateral Qualified Code(s): C78.01 - Secondary malignant neoplasm of right lung; C78.02 - Secondary malignant neoplasm of left lung Plan 69-year-old female who first presented with clinical stage at least IB (T2a, N0/1, M0) non-small cell lung cancer, adenocarcinoma of the left upper lobe. Metastatic disease in hilar lymph nodes couldnot be pathologically definitivelyruled out.. Patient is medically [...] toxicities. However she had relentless progression of metastaticdisease in the lungs. Received third line systemic therapy with single agent gemcitabine June 2024?August 2024. Combination gemcitabine was PD-L1 inhibitor was denied by insurance even though patient was willing to take the risk of relapse of her rheumatoid disease. Had excessive bone marrow toxicities despite dosereduction and treatment delays and by August 2024 had definitive progression of metastatic diseasein the lungs. Of note that throughout the [...] itchy rash on the back manageable with fiok-ukd-okdtsdp hydrocortisone twice daily. Anorexia and nausea seem to be more related to Trulicity rather than immunotherapy, resolved once the drug was discontinued. Imaging November 30, 2024 shows a mixed response (see summary under HPI); since there are no new lesions at this possible pseudo progression of some lesions. Imaging March 28, 2025 showed slight decrease in the size of the mass left upper lobe and marked involution of bilateral lung nodules. A questionable softtissue density in the right sacroiliac jointis still undergoing further evaluation with CT. In December 2024 she was noted to have developed an acquired hypothyroidism most likely secondary to immune mediated side effect of PD-L1 inhibitor and started on oral replacement therapy. Chronic comorbid conditions: Diabetes, hypertension, dyslipidemia, coronary artery disease, rheumatoid arthritis, diverticular disease, peripheral vascular disease history of recurrent UTIs and renalcalculus disease, B12 deficiency anemia. Plan: Based on NCCN guidelines: 1. Continue with single agent PD-L1 inhibitor pembrolizumab. Further systemic chemotherapy with single agent Taxotere can be considered in the future specially after he chemotherapy rest. 2. Refered to palliative. 3. Continue long-term B12 supplements subcu for B12 deficiency anemia. 4. Continue long-term thyroid replacement therapy, adjusting dose to 75 mcg orally daily and will continue to monitor and adjust dose if needed. 5. Elective imaging every 3-4 months, next will be due late June 2025 6. If right SI joint pain on imaging appears to be a metastatic lesion palliative radiation may be warranted and patient will be referred Patient was seen with a close friend, impression and plan discussed. Shannan Waldrop MD Business Developer, [facility] Divisions of Medical Oncology & Hematology Department of Internal Medicine [place] [id number] This note was generated using a voice [...] you fallen in the past year?: No 04/05/25 1329 jagruti PALOMO> Date _ Shannan Waldrop MD Cosigner Signature: Date (if applicable) CC: Dr. Sharif Christianson MD ~ [facility]08-19-2025 Progress note Author Shannan Waldrop [facility] Note Date/Time April 05, 2025 1: 29pm [facility] Cancer [address] [address] OFFICE VISIT Date of Service: 04/05/25 1229 MR#: [id number] Acct: [id number] Name: KAELYN POWERS Rep #: [id number] : 1955 From: Shannan romero MD Age/Sex: 69/F Location[place] [facility] Status: Signed HPI Subjective Date of Service 04/05/25 Chief Complaint NSCLC on treatment History of [...] ANTIBODY / CLONE RESULT ER (6F11) negative IN (1E2) negative AE1-3 (AE1/AE3/PCK26) positive CK7 (OV-TL12/30) positive CK8 ([id number]) positive CK20 (KS20.8) negative TTF-1 (8G7G3/1) positive [...] disease. May 2023: Patient was seen at [facility] by thoracic surgery Dr. Green and was [...] top-normal caliber of the CBD is similar. March 28, 2025 CT chest and abdomen: IMPRESSION: Coronary artery calcification (CAC) is is [...] abdomen and pelvis recommended for further evaluation. Treatment summary and response: * Definitive concomitant [...] systemic therapy with pembrolizumab September 21, 2024. 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 mary beth/sikh: Hindu seatbelt use: always do you feel safe at home: Yes ROS ROS Narrative I feel great Constitutional Constitutional: Reports systems reviewed and no [...] no addt'l complaints, except as documented and constipation; Denies abdominal pain, change in bowel habits, hematochezia, melena or nausea Genitourinary Genitourinary: Reports systems reviewed and no addt'l complaints, except as documented and urinary frequency; Denies dysuria or hematuria Musculoskeletal Musculoskeletal: Reports systems reviewed and no addt'l complaints, except as documented, arthralgias and other Details: Right SI joint area pain, she takes oxycodone 5 Mg as needed Integumentary Integumentary: Reports systems reviewed and no addt'l complaints, except as documented and other Details: Rash resolved and no longer using topical steroid ; Denies new lesions Neurologic Neurologic: Reports systems [...] complaints, except as documented Intake Vital Signs 01/25/25 13:16 04/05/25 12:31 Height 5 ft 1 in 5 ft 1 in Weight: 85.842 kg BMI 35.7 BP 120/74 Blood Pressure Location Rt brachial Position Sitting Respiration 16 Pulse 69 Pulse Source Monitor Temp 97.8 F Temperature Source Temporal Artery Pulse Oximetry (%) 95 Oxygen Delivery Method room air Intake Is patient in pain?: Yes (left leg) Allergies oxycodone (From Percocet) Allergy (Intermediate, Verified 04/05/25 12:34) Itching Medications ?Medication ?Instructions ?Recorded ?Confirmed ?Type oxybutynin chloride 15 mg 15 mg PO DAILY bladder 10/0104/05/25 History tablet,extended release 24 hr metformin 1,000 mg tablet 1,000 mg PO BID dm 10/01/22 04/05/25 History bupropion HCl 150 mg tablet,12 hr 150 mg PO Q12H 06/1104/05/25 History sustained-release ondansetron 8 mg disintegrating 8 mg PO Q8H PRN nausea and 06/02/24 04/05/25 Rx tablet vomiting #30 tabs lisinopril 5 mg tablet 5 mg PO QDAY 08/31/24 History Disability Placard #1 ea 09/07/24 04/05/25 Rx lidocaine-prilocaine 2.5 %-2.5 % 1 applic topical ONCE PRN port 11/02/24 Rx topical cream access 30 days #30 grams omeprazole 20 mg tablet,delayed 20 mg PO QDAY 12/14/24 04/05/25 History release pembrolizumab 25 mg/mL intravenous 200 mg (8 mL) .Rout e .COMPLEX #8 mL 12/30/24 04/05/25 Rx solution levothyroxine 50 mcg tablet 50 mcg PO QDAY #90 tabs 04/05/25 Rx (Synthroid) oxycodone-acetaminophen 5 mg-325 1 tab PO Q6H PRN 01/1604/05/25 History mg tablet cilostazol 100 mg tablet 100 mg PO BID #60 tabs 04/0404/05/25 Rx cholecalciferol (vitamin D3) 1,250 1,250 mcg PO QWEEK 04/05/25 04/05/25 History mcg (50,000 unit) capsule metoprolol tartrate 25 mg tablet 25 mg PO QDAY #90 tab s 04/05/25 04/05/25 Rx Have you fallen in the past year?: No Exam Physical Exam Narrative ECOG 1 Const [...] no focal motor deficits Coordination / Balance: gvvztb-wc-eklr test normal Speech: speech normal Gait (Neuro): normal gait Coding Level of Care Code Off vis,est,level 4 Exam Problem Focused Diagnoses Cancer of upper lobe of left lung C34.12 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 Hypothyroidism type: due to medication Malignant neoplasm metastatic to both lungs C78.01; C78.02 Laterality: bilateral Assessment and Plan Assessment and Plan (1) Cancer of upper lobe of left lung: Status: Chronic (2) Hypothyroidism: Status: Chronic Qualifiers: Hypothyroidism type: due to medication Qualified Code(s): E03.2 - Hypothyroidism due to medicaments and other exogenous substances Comment: Secondary to PD-L1 inhibitor immunotherapy (3) Metastasis to lung: Status: Chronic Qualifiers: Laterality: bilateral Qualified Code(s): C78.01 - Secondary malignant neoplasm of right lung; C78.02 - Secondary malignant neoplasm of left lung Plan 69-year-old female who first presented with clinical stage [...] Had excessive bone marrow toxicities despite dose reduction and treatment delays and by August 2024 had [...] itchy rash on the back manageable with onws-cae-dzsrinc hydrocortisone twice daily. Anorexia and nausea seem to be more related to Trulicity rather than immunotherapy, resolved once the drug was discontinued. Imaging November 30, 2024 shows a mixed response (see summary under HPI); since there are no new lesions at this possible pseudo progression of some lesions. Imaging March 28, 2025 showed slight decrease in the size of the mass left upper lobe and marked involution of bilateral lung nodules. A questionable softtissue density in the right sacroiliac joint is still undergoing further evaluation with CT. In December 2024 she was noted to have developed an acquired hypothyroidism most likely secondary to immune mediated side effect of PD-L1 inhibitor and started on oral replacement therapy. Chronic comorbid conditions: Diabetes, hypertension, dyslipidemia, coronary artery disease, rheumatoid arthritis, diverticular disease, peripheral vascular disease history of recurrent UTIs and renal calculus disease, B12 deficiency anemia. Plan: Based on NCCN guidelines: 1. Continue with single agent PD-L1 inhibitor pembrolizumab. Further systemic chemotherapy with single agent Taxotere can be considered in the future specially after he chemotherapy rest. 2. Refered to palliative. 3. Continue long-term B12 supplements subcu for B12 deficiency anemia. 4. Continue long-term thyroid replacement therapy, adjusting dose to 75 mcg orally daily and will continue to monitor and adjust dose if needed. 5. Elective imaging every 3-4 months, next will be due late June 2025 6. If right SI joint pain on imaging appears to be a metastatic lesion palliative radiation may be warranted and patient will be referred Patient was seen with a close friend, impression and plan discussed. Shannan Waldrop MD Business Developer, [facility] Divisions of Medical Oncology & Hematology Department of Internal Medicine [address] [address] This note was generated using a voice [...] you fallen in the past year?: No 04/05/25 1329 <Electronically signed by Shannan chand MD> Date _ Shannan Waldrop MD Cosigner Signature: Date (if applicable) CC: Dr. Sharif Christianson MD ~ [facility] Work Phone: 1(649) 923-362708-11-2025 Radiology Diagnostic study note [facility] Imaging Services [address] [place] [address] Chest AND Abd W/ Contrast MR#: [id number] Acct: [id number] Name: KAELYN POWERS Rep #: [id number] : 1955 F 69 From: Raciel Nunez MD PCP: Dr. Sharif Christianson MD Status: RE G CLI Study:CT Chest AND Abd W/ Contrast Date of Ex am: 03/28/25 Exam# [id number] Ordering Dr: Shannan Waldrop MD PROCEDURE: CT [...] previously seen nodular density scattered throughout both lungs.No new nodules are seen. Pleura: No pleural effusion. CT ABDOMEN: Liver: Diffuse fatty infiltration. Gallbladder: Surgically absent. Spleen: Normal size. Pancreas: Diffuse fatty atrophy. Adrenals: Unremarkable Kidneys: Normal renal sizes. No hydronephrosis. Bowel: Nonspecific bowel gas pattern Lymph nodes: Unremarkable. Vasculature: Mild diffuse atherosclerotic calcifications are noted. Peritoneum / Retroperitoneum: Questionable 1.9 cm by 2.5 cm soft tissue density overlying the rightsacroiliac joint. Bones: Unremarkable. CT/CT Chest AND Abd [...] pelvis recommended for further evaluation. Reading Location: [facility] CC: Dr. Sharif Christianson MD; Dr. Shannan Waldrop MD ~ Baggage Handler: Signed [facility]07-23-2025 Radiology Diagnostic study note [facility] Imaging Services [address] [place] [address] Lumbar Spine 2 or 3 Views MR#: [id number] Acct: [id number] Name: KAELYN POWERS Rep #: [id number] : 1955 F 69 From: Fernando Johnson MD PCP: Dr. Sharif Christianson MD Status: RE G CLI Study:Lumbar Spine 2 or 3 Views Date of Exam: 03/08/25 Exam# [id number] Ordering Dr: Suleiman Gilliland PROCEDURE: LUMBAR SPINE 2 OR 3 VIEWS 03/08/2025 REASON FOR EXAM: CLAUDICATION, LOW BACK PAIN TECHNIQUE: LUMBAR SPINE 2 OR 3 VIEWS FINDINGS: No evidence of acute fracture or dislocation. Moderate degenerative changes of the visualized spine. Grade 1 retrolisthesis of L2 on L3. Phtkipby-uk-izfepn lower lumbar facet arthropathy. RAD/Lumbar Spine 2 or 3 Views IMPRESSION: Spondylosis. Spondylolisthesis. Reading Location: [facility] CC: DENISE Miranda; Dr. Sharif Christianson MD ~ Baggage Handler: Signed [facility]07-22-2025 Evaluation note* Diagnosis Onset Date Resolution Status Admit Date Claudication acute March 08, 10:02am Encounter for antineoplastic immunotherapy acute March 15, 2025 10:40am 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 March 15, 2025 10:40am Hypothyroidism chronic March 15, 2025 10:40am 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 February 162024 10:40am 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 April 05 10:06am Hypothyroidism chronic March 10:06am 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 April 05, 2025 10:06am Claudication acute April 05, 2025 10:45am Essential (primary) hypertension acute April 05 10:45am History of coronary artery stent placement October 10, 2015 acute April 05, 2025 10:45am 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 April 26 9:33am Hypothyroidism chronic April 26, 2025 9:33am 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 Septem 2024 9:33am 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 May 17, 2025 12:06pm Hypothyroidism chronic May 17, 2025 12:06pm 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 Septem 2024 12:06pm 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 Octobe r 2024 2:11pm 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 June 07 9:39am Hypothyroidism chronic June 072024 9:39am 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 Octobe r 2024 9:39am [facility] Work Phone: 1(484) 181-477907-08-2025 Evaluation note* Diagnosis Onset Date Resolution Status Admit Date Dizziness on standing acute Feb 10:09am Encounter for antineoplastic immunotherapy acute February 22, 2025 10:09am 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 February 22, 2025 10:09am Hypothyroidism chronic February 22, 2025 10:09am 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 February 222024 10:09am Claudication acute March 08 025 10:02am Encounter for antineoplastic immunotherapy acute March 15, 2025 10:40am 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 March 15, 2025 10:40am Hypothyroidism chronic March 15, 2025 10:40am 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 February 162024 10:40am 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 April 05 10:06am Hypothyroidism chronic March 10:06am 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 April 05, 2025 10:06am Claudication acute April 05, 2025 10:45am Essential (primary) hypertension acute April 05 10:45am History of coronary artery stent placement October 10, 2015 acute April 05, 2025 10:45am 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 April 26 9:33am Hypothyroidism chronic April 26, 2025 9:33am 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 Septem 2024 9:33am 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 May 17, 2025 12:06pm Hypothyroidism chronic May 17, 2025 12:06pm 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 Septem 2024 12:06pm 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 Octobe r 2024 2:11pm 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 June 07 9:39am Hypothyroidism chronic June 072024 9:39am 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 Octobe r 2024 9:39am [facility] Work Phone: 1(866) 168-499706-10-2025 Evaluation note* Diagnosis Onset Date Resolution Status Admit Date 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 January 25, 2025 12:36pm Hypothyroidism chronic January 25, 2025 12:36pm 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 January 162024 12:36pm Dizziness on standing acute Feb 10:09am Encounter for antineoplastic immunotherapy acute February 22, 2025 10:09am 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 February 22, 2025 10:09am Hypothyroidism chronic February 22, 2025 10:09am 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 February 222024 10:09am Claudication acute March 08 10:02am Encounter for antineoplastic immunotherapy acute March 15, 2025 10:40am 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 March 15, 2025 10:40am Hypothyroidism chronic March 15, 2025 10:40am 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 February 162024 10:40am 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 April 05 10:06am Hypothyroidism chronic March 10:06am 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 April 05, 2025 10:06am Claudication acute April 05, 2025 10:45am Essential (primary) hypertension acute April 05 10:45am History of coronary artery stent placement October 10, 2015 acute April 05, 2025 10:45am 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 April 26 9:33am Hypothyroidism chronic April 26, 2025 9:33am 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 Septem 2024 9:33am [facility] Work Phone: 1(491) 367-922406-10-2025 Evaluation note* Diagnosis Onset Date Resolution Status Admit Date 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 January 25, 2025 12:36pm Hypothyroidism chronic January 25, 2025 12:36pm 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 January 162024 12:36pm Dizziness on standing acute Feb 10:09am Encounter for antineoplastic immunotherapy acute February 22, 2025 10:09am 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 February 22, 2025 10:09am Hypothyroidism chronic February 22, 2025 10:09am 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 February 222024 10:09am Claudication acute March 08 10:02am Encounter for antineoplastic immunotherapy acute March 15, 2025 10:40am 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 March 15, 2025 10:40am Hypothyroidism chronic March 15, 2025 10:40am 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 February 162024 10:40am 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 April 05 10:06am Hypothyroidism chronic March 10:06am 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 April 05, 2025 10:06am Claudication acute April 05, 2025 10:45am Essential (primary) hypertension acute April 05 10:45am History of coronary artery stent placement October 10, 2015 acute April 05, 2025 10:45am 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 April 26 9:33am Hypothyroidism chronic April 26, 2025 9:33am 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 Septem 2024 9:33am 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 May 17, 2025 12:06pm Hypothyroidism chronic May 17, 2025 12:06pm 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 Septem 2024 12:06pm [facility] Work Phone: 1(781) 151-327705-20-2025 Evaluation note* Diagnosis Onset Date Resolution Status Admit Date 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 January 04, 2025 12:19pm 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 January 25, 2025 12:36pm Hypothyroidism chronic January 25, 2025 12:36pm 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 January 162024 12:36pm Dizziness on standing acute Feb 10:09am Encounter for antineoplastic immunotherapy acute February 22, 2025 10:09am 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 February 22, 2025 10:09am Hypothyroidism chronic February 22, 2025 10:09am 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 February 222024 10:09am Claudication acute March 08, 10:02am Encounter for antineoplastic immunotherapy acute March 15, 2025 10:40am 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 March 15, 2025 10:40am Hypothyroidism chronic March 15, 2025 10:40am 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 February 162024 10:40am 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 April 05 10:06am Hypothyroidism chronic March 10:06am 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 April 05, 2025 10:06am Claudication acute April 05, 2025 10:45am Essential (primary) hypertension acute April 05 10:45am History of coronary artery stent placement October 10, 2015 acute April 05, 2025 10:45am [facility] Work Phone: 1(462) 389-100905-20-2025 Progress [facility] [address] [place] [address] OFFICE VISIT Date of Service: 01/04/25 1313 MR#: [id number] Acct: [id number] Name: KAELYN POWERS Nataly Rep #: [id number] : 1955 From: Shannan romero MD Age/Sex: 69/F Location: [place] Status: Signed HPI Subjective Date of Service 01/04/25 Chief Complaint NSCLC on treatment History of [...] ANTIBODY / CLONE RESULT ER (6F11) negative IN (1E2) negative AE1-3 (AE1/AE3/PCK26) positive CK7 (OV-TL12/30) positive CK8 (03htjxA64) positive CK20 (KS20.8) negative TTF-1 (8G7G3/1) positive [...] disease. May 2023: Patient was seen at [facility] by thoracic surgery Dr. Green and was [...] Partial remission then rapid relapse in less than6 months. * Second line therapy Alimta February?April 2024: Progressive disease * Third line therapy with single agent gemcitabine (combination with nivolumab was denied by insurance): June 2024?August 2024 had excessive bone marrow toxicity, dose reduction and treatment delays: Progressive disease * Fourth line systemic therapy with pembrolizumab September 21, 2024. 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 mary beth/sikh: Hindu seatbelt use: always do you feel safe [...] and no addt'l complaints, except as documented, anorexiaand constipation; Denies abdominal pain, change in bowel [...] no focal motor deficits Coordination / Balance: ybeyof-km-ykum test normal Speech: speech normal Gait (Neuro): [...] lobe. Metastatic disease in hilar lymph nodes couldnot be pathologically definitivelyruled out.. Patient is medically [...] toxicities. However she had relentless progression of metastaticdisease in the lungs. Received third line systemic [...] itchy rash on the back manageable with bnil-mdw-isfntus hydrocortisone twice daily. Anorexia and nausea seem to be more related to Trulicity rather than immunotherapy. Imaging November 30, 2024 shows a mixed response (see summary under HPI); since there are no new lesions at this possible pseudo progression of some lesions. Chronic comorbid conditions: Diabetes, hypertension, dyslipidemia, coronary artery disease, rheumatoid arthritis, diverticular disease, peripheral vascular disease history of recurrent UTIs and renalcalculus disease, B12 deficiency anemia. Plan: Based on NCCN guidelines: 1. Continue with single agent PD-L1 inhibitor. Further systemic chemotherapy with single agent Taxotere can be considered in the future specially after he chemotherapy rest. 2. Refered to palliative. 3. Continue long-term B12 supplements subcu for B12 deficiency anemia. Patient was seen with a close friend, impression and plan discussed. Shannan Waldrop MD Business Developer, [facility] Divisions of Medical Oncology & Hematology Department of Internal Medicine [place] [id number] This note was generated using a voice [...] in the past year?: No 01/04/25 1347 jagruti PALOMO> Date _ Shannan Waldrop MD Cosigner Signature: Date (if applicable) CC: ~ [facility]05-20-2025 Progress note Author Shannan Waldrop [facility] Note Date/Time January 04, 2025 1:47p m [facility] Cancer [facility] [place] [address] [place] [address] OFFICE VISIT Date of Service: 01/04/25 1313 MR#: [id number] Acct: [id number] Name: KAELYN POWERS Rep #: [id number] : 1955 From: Shannan romero MD Age/Sex: 69/F [place] [facility] Status: Signed HPI Subjective Date of Service 01/04/25 Chief Complaint NSCLC on treatment History of [...] ANTIBODY / CLONE RESULT ER (6F11) negative IN (1E2) negative AE1-3 (AE1/AE3/PCK26) positive CK7 (OV-TL12/30) positive CK8 (13thhpL91) positive CK20 (KS20.8) negative TTF-1 (8G7G3/1) positive [...] disease. May 2023: Patient was seen at [facility] by thoracic surgery Dr. Green and was [...] systemic therapy with pembrolizumab September 21, 2024. 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 mary beth/sikh: Hindu seatbelt use: always do you feel safe [...] 25 mg/mL intravenous 200 mg (8 mL) .Sophia WOMACK #8 mL 12/30/24 01/04/25 Rx solution Have [...] no focal motor deficits Coordination / Balance: qdxzys-ym-jpma test normal Speech: speech normal Gait (Neuro): [...] itchy rash on the back manageable with koby-iop-rwdkqfn hydrocortisone twice daily. Anorexia and nausea seem [...] impression and plan discussed. Shannan Waldrop MD Business Developer, [facility] Divisions of Medical Oncology & Hematology Department of Internal Medicine [place] [phone] This note was generated using a voice [...] chand MD> Date _ Shannan Waldrop MD Cosigner Signature: Date (if applicable) CC: ~ [facility] Work Phone: 1(623) 573-935104-29-2025 Evaluation note* Diagnosis Onset Date Resolution Status [...] 10:09am Claudication acute March 08, 025 10:02am Encounter for antineoplastic immunotherapy acute March 15, 2025 10:40am Hypothyroidism acute March 15, 2025 10:40am 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 March 15, 2025 10:40am 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 February 162024 10:40am [facility] Work Phone: 1(174) 943-970904-29-2025 Evaluation note* Diagnosis Onset Date Resolution Status Admit Date 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 December 14, 2024 9:43am 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 January 04, 2025 12:19pm 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 January 25, 2025 12:36pm Hypothyroidism chronic January 25, 2025 12:36pm 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 January 162024 12:36pm Dizziness on standing acute Feb 10:09am Encounter for antineoplastic immunotherapy acute February 22, 2025 10:09am 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 February 22, 2025 10:09am Hypothyroidism chronic February 22, 2025 10:09am 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 February 222024 10:09am Claudication acute March 08, 10:02am Encounter for antineoplastic immunotherapy acute March 15, 2025 10:40am 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 March 15, 2025 10:40am Hypothyroidism chronic March 15, 2025 10:40am 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 February 162024 10:40am 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 Sharif Christianson MD Status: RE G CLI Study:CT Chest AND Abd W/ Contrast Date of Ex am: 11/30/24 Exam# [id number] Ordering Dr: Sabi Olivares NP COUNTER TACKER-C PROCEDURE: CT CHEST AND ABD W/ CONTRAST [...] abdomen. No definite transition point within the kqlbr-mi-bydu. Lymph nodes: Unremarkable. Vasculature: Advanced diffuse atherosclerosis. Likely at least knnvtlnf-jv-jawvcr stenoses at the origins of the celiac and SMA, not well evaluated. Likely severe stenosis along the LEFT common iliac artery proximally. Suspect RIGHT POATF-mxbdslk-bpmn-LEFT renal artery stenoses, not well evaluated. Peritoneum: [...] 4. Additional description as above. Reading Location: [id number] CC: LANEY Lynn; Dr. Sharif Christianson MD ~ Baggage Handler: Signed [facility]04-08-2025 Evaluation note* Diagnosis Onset Date Resolution Status [...] February 222024 10:09am Claudication acute March 08, 10:02am [facility] Work Phone: 1([phone]) 640-383203-26-2025 Evaluation note* Diagnosis Onset Date Resolution Status Admit Date Carotid artery disease acute [facility] 2024 12:49pm Peripheral arterial disease acute November [...] 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 February 222024 10:09am [facility] Work Phone: 1(982) 303-276303-18-2025 Evaluation note* Diagnosis Onset Date Resolution Status Admit Date 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 November 02, 2024 9:39am Carotid artery disease acute [facility] 2024 12:49pm Peripheral arterial disease acute November [...] 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 February 222024 10:09am [facility] Work Phone: 1(373) 761-780602-25-2025 Evaluation note* Diagnosis Onset Date Resolution Status Admit Date Cancer of upper lobe of left lung acute October 12, 025 9:43am Cancer of upper lobe of left lung acute November 02, 2024 9:39am Carotid artery disease acute [facility] 2024 12:49pm Peripheral arterial disease acute November [...] left lung acute January 25, 2025 12:36pm [facility] Work Phone: 1(444) [phone] Evaluation note* Diagnosis Onset Date Resolution Status Admit Date 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 October 12, 025 9:43am 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 November 02, 2024 9:39am Carotid artery disease acute [facility] 2024 12:49pm Peripheral arterial disease acute November [...] 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 January 162024 12:36pm [facility] Work Phone: 1(906) 329-541901-20-2025 Evaluation note* Diagnosis Onset Date Resolution Status [...] 02, 2024 9:39am Carotid artery disease acute [facility] 2024 12:49pm Peripheral arterial disease acute November [...] lung acute January 04, 2025 1 2:19pm [facility] Work Phone: [phone] Evaluation note* Diagnosis Onset Date Resolution Status Admit Date Cancer of upper lobe of left lung acute August 09 9:39am Drug induced neutropenia acute August 09, 2024 9:39am Encounter for chemotherapy management acute August 09 9:39am Hypomagnesemia acute July 192023 9:39am Localized swelling of both lower legs acute August 09 9:39am B12 deficiency anemia chronic Jul 9:39am Essential (primary) hypertension acute August 31 [...] 02, 2024 9:39am Carotid artery disease acute [facility] 2024 12:49pm Peripheral arterial disease acute November 10, 2024 12:49pm Varicose veins of both legs with edema acute November 10, 2024 12:49pm Cancer of upper lobe of left lung acute November 23, 2024 8:36am Encounter for antineoplastic immunotherapy acute November 23, 2024 8:36am [facility] Work Phone: 1([phone]) 673-420912-05-[address] [facility] 06-23-2023 NoteHNO ID: [id number] Author: John Green MD, PhD Service: ? Author Type: Physician Type: Progress Notes Filed: 06/23/2023 3:00 PM Note Text: [facility] STAFF PHYSICIAN NOTE OF PERSONAL INVOLVEMENT IN [...] Green MD, PhD DATE [facility] SERVICE: [facility] NoteHNO ID: [id number] Author: John Green MD, PhD Service: Thoracic Surgery Author Type: Physician Type: Progress Notes Filed: 07/09/2023 12:12 PM Note Text: [place] [address] [place] DEPARTMENT OF THORACIC AND CARDIOVASCULAR SURGERY NAME: KAELYN POWERS [facility] #: [id number] DATE: 06/19/2023 AGE: 67 PHYSICIAN: John Green [...] the same time, was noted to have WI, which was likely an NSTEMI. The patient [...] ischemic heart disease. John Green M.D., Ph.D. SM:[id number] [facility] 06-19-2023 NoteHNO ID: [id number] Author: John Green MD, PhD Service: ? Author Type: Physician Type: Progress Notes Filed: 06/23/2023 3:00 PM Note Text: [facility] THORACIC SURGERY OUTPATIENT CONSULT NOTE Kaelyn Powers [id number] Requesting Provider: Pinky Winter MD Thoracic Physician: John Green MD Chief Complaint: Lung cancer Impression: 67 yo former 50 pack year smoker F with CAD/WI (ASA+Plavix), SDH s/p crainotomy and evacuation, PAD (cannot walk 10 feet without stopping), EtOH use, who presents with a biopsy proven [id number] NSCLC of the left upper lobe by PET scan. FEV1 100%. DLCO 128%. 6MWT 54.8% Extremely high cardiovascular risk for lobectomy. Poor functional status given CAD, imbalance from SDH, and PAD. Plan: Refer to radiation oncology and oncology for definitive chemoradiotherapy with immunotherapy as the patient's cardiovascular risk and functional status is more than likely prohibitive for anatomic lung resection. SIGNATURE: Yann Laehy MD DATE of SERVICE: 06/19/2023 TIME of [...] former 50 pack year smoker F with CAD/WI (ASA+Plavix), SDH s/p crainotomy and evacuation, PAD (cannot walk 10 feet without stopping), EtOH use, who presents with a biopsy proven [id number] NSCLC of the left upper lobe by PET scan. This has been monitored for the last two years. However, over the last year the patient has been hospitalized for a SDH, then COVID, then a mild WI. She did not receive any coronary angioplasty [...] Date: 06/05/2023 Images were obtained outside of [facility] I have personally reviewed the following images/data: Chest X-ray, Pathology, and PFT/screening robbie Outside Paper Medical Records Review personally performed by: Yann Leahy [facility]11-02-2023 NoteHNO ID: [id number] Author: Malena Arias, WILLIAM Service: ? Author Type: Registered Resp Therapist [...] Powers DATE: June 19, 2023 TIME: 9:22 [facility]11-02-2023 NoteHNO ID: [id number] Author: Malena Arias, BALL TRUING MACHINE OPERATOR Service: ? Author Type: Registered Resp Therapist Type: Progress Notes Filed: 06/19/2023 9:21 AM Note Text: PULM FUNCTION SMARTBLOCK: Provider: John Green MD, PhD 6 MW: [facility] Progress note Author Gwendloyn Petersen [facility] June 13, 2023 2:24pm Note Date/Time June 13, 2023 8 :08am [facility] Medical Records Department [address] [place] [address] Progress Note - Hospitalist 06/13/23805 MR#: [id number] Acct: [id number] Name: KAELYN POWERS Rep #:[id number] : 1955 67 From: Gwendolyn Petersen MD PCP: LANEY Ma Status:ADM I N Location: ICU [place] [address] 4-1 Reason for Visit Reason for Visit: Diagnoses Type 2 diabetes mellitus without complications (06/11/23) Encephalopathy, unspecified (06/11/23) Non-ST elevation (NSTEMI) myocardial infarction (06/11/23) Atherosclerotic heart disease of [place] coronary artery without angina pectoris (06/11/23) Peripheral [...] 06/12/23 06/13/23 23:59 23:59 23:59 Intake Total 62.80 / 62.80 Balance 1955.50 / 1955.50 62.80 / 62.80 Lab / Micro Data [...] % (Auto) 54.5, Lymph % (Auto) 26.5, Jewell% (Auto) 17.6 H, Eos % (Auto) 0.2, [...] documentation, 25minutes Charges/Coding Visit Charges Inpatient E&M: 32239 Subs Hosp L1 06/13/23 1424 <Electronically signed by Gwendolyn Peteresn MD> Cosigner Signature (if applicable): CC: ~ Signed [facility] Work Phone: 1([phone]) 487-381410-27-2023 Progress note Author Gena Johnson [facility] June 13, 2023 12:52pm Note Date/Time June 13, 2023 1 2:52pm [facility] Medical Records Department [address] [place] [address] Progress Note - Cardiology 06/13/23 1248 MR#: [id number] Acct: [id number] Name: KAELYN POWERS Rep #:[id number] : 1955 67 From: Gena Johnson MD [...] 06/12/23 06/13/23 23:59 23:59 23:59 Intake Total 50 1067.55 / 1067.55 Balance 1067.55 / 1067.55 [...] % (Auto) 54.5, Lymph % (Auto) 26.5, Jewell% (Auto) 17.6 H, Eos % (Auto) 0.2, [...] % (Auto) 54.5, Lymph % (Auto) 26.5, Jewell % (Auto) 17.6 H, Eos % (Auto) [...] Understands and agrees with the plan. 06/13/23 4503 <Electronically signed by Gena Johnson MD> Cosigner Signature (if applicable): CC: ~ Signed [facility] Work Phone: 1(385) 327-432610-26-2023 Consult note Author Gena Johnson [facility] June 12, 2023 10:01am Note Date/Time June 12, 2023 1 0:01am [facility] Medical Records Department [address] [place] [address] Consultation - Cardiology 06/12/23 0954 MR#: [id number] Acct: [id number] Name: KAELYN POWERS Rep #:[id number] : 1955 67 From: Gena Johnson MD PCP: Iris Clayton, BAYLEE-C Status:ADM I N Location: ICU CVICU20 4-1 [...] her previous anginal symptoms were throat tightness. 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 mary beth/sikh: Hindu seatbelt use: always do you feel safe [...] (Auto) 63.2, Lymph % (Auto) 17.5 L, Jewell % (Auto) 17.4 H, Eos % (Auto) [...] % (Auto) 57.7, Lymph % (Auto) 21.6, Jewell % (Auto) 18.6 H, Eos % (Auto) [...] (Auto) 63.2, Lymph % (Auto) 17.5 L, Jewell % (Auto) 17.4 H, Eos % (Auto) [...] Neut % (Auto)57.7, Lymph % (Auto) 21.6, Jewell % (Auto) 18.6 H, Eos % (Auto) 0.0, Baso % (Auto)0.8, Absolute Neuts (auto) 2.3, Nucleated RBC % 0, Sodium 134 L, Potassium 3.7, Chloride 102, Carbon Dioxide 24.0, Anion Gap 8, BUN 11, Creatinine 0.74, Est GFR(MDRD) Af Amer 100, Est GFR (MDRD) Non-Af 83, BUN/Creatinine Ratio 14.8, Arbfvws792 H, Calcium 8.2 L, Triglycerides 129, Cholesterol 133, LDL Cholesterol 66, VLDL Cholesterol 26, HDL Cholesterol 41 Rhythm: EKG: ECHO: Stress Test: Cardiac Cath: PCI: CT Surgery: Holter monitor: EPS: PPM: CXR: Chest CT Scan: Radiography Diagnostic Testing: Radiology Impression Brain CT 06/11/23 17:22 IMPRESSION: Age-related and postsurgical changes of the brain. Electronically Signed: Gordon Saab at 17:51 EDT , Chest X-Ray 06/11/23 17:22 IMPRESSION: Masslike left suprahilar opacity. Electronically Signed: Gordon DO Kaiser at 17:53 EDT , Chest CTA 06/11/23 18:10 IMPRESSION: No demonstrated pulmonary embolism or arterial dissection. Left upper lobe spiculated mass, slightly larger than on previous study. Electronically Signed: Gordon Saab DO at 18:56 EDT , 06/12/23 1001 <Electronically signed by Gena Johnson MD> Cosigner Signature (if applicable): CC: LANEY Clayton; Dr. Gena Johnson MD; Dr. Nic Caraballo MD~ Signed [facility] Work Phone: [phone] History and physical note Author Nic Caraballo [facility] June 12, 2023 9:33am Note Date/Time June 11, 2023 7 :25pm [facility] Medical Records Department [address] [place] [address] H&P Exam - Hospitalist 06/11/231924 MR#: [id number] Acct: [id number] Name: KAELYN POWERS Rep #:[id number] : 1955 67 From: Nic Caraballo MD PCP: LANEY Ma Status:ADM I N [...] elevated. Imaging showed enlarging spiculated lung mass. 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 mary beth/sikh: Hindu seatbelt use: always do you feel safe [...] (Auto) 63.2, Lymph % (Auto) 17.5 L, Jewell % (Auto) 17.4 H, Eos % (Auto) [...] 70 minutes. Charges/Coding Visit Charges Inpatient E&M: 01394 Init Hosp L3 06/12/23 0933 <Electronically signed by Nic Caraballo MD> Cosigner Signature (if applicable): CC: LANEY Clayton; Dr. Nic Caraballo MD~ Signed [facility] Work Phone: [phone]) [phone] Progress note Author Gwendolyn Petersen [facility] June 12, 2023 9:32am Note Date/Time June 12, 2023 6 :55am [facility] Medical Records Department [address] [place] [address] Progress Note - Hospitalist 06/12/23 0653 MR#: [id number] Acct: [id number] Name: KAELYN POWERS Rep #:[id number] : 1955 67 From: Gwendolyn Petersen MD [...] (Auto) 63.2, Lymph % (Auto) 17.5 L, Jewell % (Auto) 17.4 H, Eos % (Auto) [...] % (Auto) 57.7, Lymph % (Auto) 21.6, Jewell % (Auto) 18.6 H, Eos % (Auto) [...] than on previous study. Electronically Signed: Gordon DO Kaiser at 18:56 EDT Reading Location ID and State: [facility] / [place] Tel [phone], Service support , Physical Exam Narrative General: Alert, oriented, [...] documentation, 35minutes Charges/Coding Visit Charges Inpatient E&M: 41964 Subs Hosp L2 06/12/23 0932 <Electronically signed by Gwendolyn Petersen MD> Cosigner Signature (if applicable): CC: ~ Signed [facility] Work Phone: 1(379) 634-472410-25-2023 Discharge summary Author Williams Nye [facility] June 11, 2023 8:36pm Note Date/Time June 11, 2023 5 :08pm [facility] Medical Records Department [address] [place] [address] Emergency Department Summary 06/11/23 MR#: [id number] Acct: [id number] Name: KAELYN POWERS Rep #:[id number] : 1955 67 From: Williams Nye DO PCP: Iris Clayton NP-C Status:ADM I N Location: ICU CVICU20 4-1 [...] this morning for a fever. No nausea. 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 mary beth/sikh: Hindu seatbelt use: always do you feel safe [...] (Auto) 63.2 Lymph % (Auto) 17.5 L Jewell % (Auto) 17.4 H Eos % (Auto) [...] Discharge Plan Disposition Disposition: Acute Care Hospital [facility] Discharge Date/Time: 06/11/23 19:45 What to do if you have Problems For any increased pain, shortness of breath, bleeding, nausea or vomiting, chestpain, or any unexpected problems, contact your Primary Care Provider. Call [facility] ([phone]) or report to the closest Emergency Room. Call 911 if necessary. 06/11/232035 <Electronically signed by Williams Nye DO> Cosigner Signature (if applicable): CC: LANEY Clayton ~ Signed [facility] Work Phone: 1(706) 249-307910-06-2022 [facility]10-06-2022 History of Present illness Narrative* Bryce Greer MD - 05/23/2022 11:00 AM EDT NEUROSURGERY POST OP NOTE Dr. Bryce Greer MD, [facility] Date of visit: May 23, 2022 Patient Name: Ms.Debora Nataly Powers Date of : 1955 Current Age: [age] year old MRN/E# [id number] Last Office Visit: 05/07/2022 SURGERY: Right craniotomy [...] a worsening headache. Work-up was completed at [facility] showing a new right-sided subdural hematoma. [...] symptoms. This note was partially generated using [employer] voice recognition system, and there may be some incorrect words, spellings, and punctuation that were not noted in checking the note before saving. documented in this [facility]09-20-2022 [facility]09-20-2022 History of Present illness Narrative* Bryce Greer MD - 05/07/2022 11:30 AM EDT NEUROSURGERY POST OP NOTE Dr. Bryce Greer MD, [facility] Date of visit: May 07, 2022 Patient Name: Ms.Debora Nataly Powers Date of : 1955 Current Age: [age] year old MRN/E# [id number] Last Office Visit: 04/18/2022 SURGERY: Right craniotomy [...] a worsening headache. Work-up was completed at [facility] showing a new right-sided subdural hematoma. [...] brain. This note was partially generated using [employer] voice recognition system, and there may be some incorrect words, spellings, and punctuation that were not noted in checking the note before saving. documented in this encounterKet[facility]09-01-2022 [facility]09-01-2022 History of Present illness Narrative* Bryce Greer MD - 04/18/2022 1:30 PM EDT NEUROSURGERY POST OP NOTE Dr. Bryce Greer MD, [facility] Date of visit: April 18, 2022 Patient Name: Ms.Debora Nataly Powers Date of : 1955 Current Age: [age] year old MRN/E# [id number] Last Office Visit: Postop SURGERY: Right craniotomy [...] developing a worseningheadache. Work-up was completed at [facility] showing a new right-sided subdural hematoma. [...] visit. This note was partially generated using [employer] voice recognition system, and there may be some incorrect words, spellings, and punctuation that were not noted in checking the note before saving. documented in this encounterKettering [facility]08-24-2022 Miscellaneous Notes* Telephone Encounter - Maricruz Archer - 04/10/2022 1:50 PM EDT Spoke with patient's nurse at [facility], Mary. She stated patient's typically [...] patient having the CT. documented in this encounterKettering [facility]08-19-2022 [facility]08-18-2022 [facility]08-17-2022 [facility]08-17-2022 [facility]08-16-2022 [facility]08-16-2022 [facility] History of Present illness Narrative* Ana Zazueta APRN.MILANESE KNITTING MACHINE OPERATOR - 04/01/2022 9:47 AM EDT Images from the original note were not included. Critical Care Transport Note Patient Name: Kaelyn Powers Service Date: 03/28/22 Referring Physician: Gallito Accepting Physician: Guero Referring Facility: [facility] Accepting Facility: [facility] ED SUBJECTIVE/CHIEF COMPLAINT: I have a bad H/A [...] mass, tobacco and marijuana use.She presented to [place] ED today for evaluation of severe H/A [...] physician managing the patient requested transfer to [facility] for tertiary and/or quaternary services unavailable at the referring facility. Patient condition at time of exam was: Acutely ill and critically ill. Due to the unique circumstances of the patient, it was d etermined that this was the closest, most appropriate facility by referring physician. The physician managing the patient requested the [facility] Critical Care Transport Team transport and treat the patient for the purpose of tertiary care, evaluation, and management of her acute neurosurgical condition(s). Air medical transport was requested to reduce the zkk-hq-[id number] time, 10 minutes by air vs. approximately [...] SAH, and HTN who was transferred to [facility] for further management Right SDH with [...] status. The patient was transported to the [facility] by Rotor (Helicopter) for tertiary and/or quaternary evaluation and management of her Emergent and Critical Surgical condition(s). Upon arrival to the receiving facility, a [id number]-[id number] report was given to bedside nursing staff [...] and SAH, Cardiovascular impairment, Respiratory impairment, and OPERATIONS AND MAINTENANCE TECHNICAN impairment, which the patient had and/or had a high probability of suddenly developing. SIGNATURE: Ana Zazueta APRN.MILANESE KNITTING MACHINE OPERATOR Acute Care Nurse Practitioner [facility] Critical Care Transport Team documented in this encounterKet[facility]08[facility]15-2022 [facility]08[facility]14[facility]2022 [facility]08-14-2022 [facility]08-14-2022 [facility]08-13-2022 [facility]08-13-2022 [facility]08-13-2022 Note [facility]08-12-2022 [facility] 03-29-2022 [facility]08-11-2022 [facility]08-11-2022 [facility]08-11-2022 [facility]08-11-2022 History of Past illness Narrative* Problem Noted Date Resolved Date Subdural hemorrhage 03/28/2022 03/29/2022 Hemorrhagic stroke 03/28/2022 03/28/2022 Skull defect 02/01/2022 02/01/2022 SDH (subdural hematoma) 02/01/2022 02/05/20 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/15/2022 02/01/2022 Acute subdural hematoma 10/28/2021 03/29/20 22 Urinary tract infection with hematuria 7 06/26/2019 documented as of this encounter (statuses as of 04/01/2022) [facility]08-11-2022 History of Past illness Narrative* Problem Noted Date Resolved Date Subdural hemorrhage 03/28/2022 03/29/2022 Skull defect 02/01/2022 02/01/2022 SDH (subdural hematoma) 02/01/2022 02/05/20 22 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/15/2022 02/01/2022 Acute subdural hematoma 10/28/2021 03/29/20 22 Urinary tract infection with hematuria 7 06/26/2019 Chronic anticoagulation 10/21/2016 04/03/20 22 documented as of this encounter (statuses as of 04/09/2022) [facility]08[facility] History of Past illness Narrative* Problem Noted Date Resolved Date Subdural hemorrhage 03/28/2022 03/29/2022 Skull defect 02/01/2022 02/01/2022 SDH (subdural hematoma) 02/01/2022 02/05/20 22 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/15/2022 02/01/2022 Acute subdural hematoma 10/28/2021 03/29/20 22 Urinary tract infection with hematuria 7 06/26/2019 Chronic anticoagulation 10/21/2016 04/03/20 22 documented as of this encounter (statuses as of 04/10/2022) [facility]08[facility] History of Past illness Narrative* Problem Noted Date Resolved Date Subdural hemorrhage 03/28/2022 03/29/2022 Skull defect 02/01/2022 02/01/2022 SDH (subdural hematoma) 02/01/2022 02/05/20 22 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/15/2022 02/01/2022 Acute subdural hematoma 10/28/2021 03/29/20 22 Urinary tract infection with hematuria 7 06/26/2019 Chronic anticoagulation 10/21/2016 04/03/20 22 documented as of this encounter (statuses as of 04/18/2022) [facility] History of Past illness Narrative* Problem Noted Date Resolved Date Subdural hemorrhage 03/28/2022 03/29/2022 Skull defect 02/01/2022 02/01/2022 SDH (subdural hematoma) 02/01/2022 02/05/20 22 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/15/2022 02/01/2022 Acute subdural hematoma 10/28/2021 03/29/20 22 Urinary tract infection with hematuria 7 06/26/2019 Chronic anticoagulation 10/21/2016 04/03/20 22 documented as of this encounter (statuses as of 04/19/2022) [facility] History of Past illness Narrative* Problem Noted Date Resolved Date Subdural hemorrhage 03/28/2022 03/29/2022 Skull defect 02/01/2022 02/01/2022 SDH (subdural hematoma) 02/01/2022 02/05/20 22 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/15/2022 02/01/2022 Acute subdural hematoma 10/28/2021 03/29/20 22 Urinary tract infection with hematuria 7 06/26/2019 Chronic anticoagulation 10/21/2016 04/03/20 22 documented as of this encounter (statuses as of 05/07/2022) [facility] History of Past illness Narrative* Problem Noted Date Resolved Date Subdural hemorrhage 03/28/2022 03/29/2022 Skull defect 02/01/2022 02/01/2022 SDH (subdural hematoma) 02/01/2022 02/05/20 22 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/15/2022 02/01/2022 Urinary tract infection with hematuria 7 06/26/2019 Chronic anticoagulation 10/21/2016 04/03/20 22 documented as of this encounter (statuses as of 05/23/2022) [facility] History of Past illness Narrative* Problem Noted Date Resolved Date Subdural hemorrhage 03/28/2022 03/29/2022 Skull defect 02/01/2022 02/01/2022 SDH (subdural hematoma) 02/01/2022 02/05/20 22 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/15/2022 02/01/2022 Urinary tract infection with hematuria 7 06/26/2019 Chronic anticoagulation 10/21/2016 04/03/20 22 documented as of this encounter (statuses as of 05/24/2022) [facility]07-26-2022 [facility]07-26-2022 History of Present illness Narrative* Bryce Greer MD - 03/12/2022 10:30 AM EDT NEUROSURGERY POST OP NOTE Dr. Bryce Greer MD, [facility] Date of visit: March 12, 2022 Patient Name: Ms.Debora Nataly Powers Date of : 1955 Current Age: [age] year old MRN/E# [id number] Last Office Visit: 02/14/2022 SURGERY: Cranioplasty for [...] evaluation. This note was partially generated using [employer] voice recognition system, and there may be some incorrect words, spellings, and punctuation that were not noted in checking the note before saving. documented in this encounterKettering [facility] Hospital06-30-2022 [facility]06[facility]30-20[facility] History of Present illness Narrative* Bryce Greer MD - 02/14/2022 11:00 AM EDT NEUROSURGERY POST OP NOTE Dr. Bryce Greer MD, FACS Date of visit: February 14, 2022 Patient Name: Ms.Debora Nataly Powers Date of : 1955 Current Age: [age] year old MRN/E# [id number] Last Office Visit: post op SURGERY: Cranioplasty [...] consult on 10/28/2021 after being transferred from [facility] after a ground-level fall while on ASA and Plavix. On presentation to the [facility] emergency department new imaging was obtained [...] for evaluation and plan of care. 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 No signs [...] 03/14/2022). This note was partially generated using [employer] voice recognition system, and there may be some incorrect words, spellings, and punctuation that were not noted in checking the note before saving. documented in this encounterKettering [facility] Hospital06-23-2022 Miscellaneous Notes* Telephone Encounter - Donna Morales RN - 02/07/2022 3:05 PM EDT PATIENT INFORMATION Record ID: [id number] Patient Name: [facility]: [facility] [place]: [facility] Attending: Bryce Greer Center: Neurosurgery [facility] INSTRUCTIONS All Clear SN to remind patient of next upcoming appointment date, time, location All Clear All Clear All Clear SURVEY INFORMATION Medical/Nurse Farmer And Grazier: Donna Morales 1. Your discharge instructions are [...] symptoms? (Standard Question) No documented in this encounterKettering [facility] Hospital06-20-2022 [facility]06-19-2022 [facility]06-18-2022 [facility]06-18-2022 [facility]06-17-2022 History of Past illness Narrative* Problem Noted Date Resolved Date Skull defect 02/01/2022 02/01/2022 SDH (subdural hematoma) 02/01/2022 02/05/20 22 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/15/2022 02/01/2022 Urinary tract infection with hematuria 7 06/26/2019 documented as of this encounter (statuses as of 02/07/2022) [facility] History of Past illness Narrative* Problem Noted Date Resolved Date Skull defect 02/01/2022 02/01/2022 SDH (subdural hematoma) 02/01/2022 02/05/20 22 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/15/2022 02/01/2022 Urinary tract infection with hematuria 7 06/26/2019 documented as of this encounter (statuses as of 02/14/2022) [facility] History of Past illness Narrative* Problem Noted Date Resolved Date Skull defect 02/01/2022 02/01/2022 SDH (subdural hematoma) 02/01/2022 02/05/20 22 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/15/2022 02/01/2022 Urinary tract infection with hematuria 7 06/26/2019 documented as of this encounter (statuses as of 03/12/2022) [facility]06[facility]17[facility]2022 [facility]06-17-2022 [facility]06-07-2022 History and physical note* Ban Donnelly APRN.MILANESE KNITTING MACHINE OPERATOR - 01/22/2022 1:40 PM EDT Images from [...] Respiratory: Denies coughing, wheezing, SOB Cardiovascular: HTN, CAD-W[place], stent x 1 2015, 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 Davis, she thinks last visit [...] 356 QTC Calculation (Bazett) 418 Calculated P [place] 56 Calculated R [place] 75 Calculated T [place] 62 Impression NORMAL SINUS RHYTHM WITH SINUS ARRHYTHMIA LOW VOLTAGE QRS BORDERLINE ECG WHEN COMPARED WITH ECG OF 11-OCT-2015 05:21, NO SIGNIFICANT CHANGE WAS FOUND Confirmed by MD BRIAN, [facility] ([id number]) on 10/30/2021 7:53:36 PM No results found for this or any previous visit (from the past 94481 hour(s)). 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 Davis 09/2021, clearance scanned in [facility] Assessment/Plan PLAN Planned Procedure: Procedure(s): REPLACEMENT OF BONE FLAP SKULL (N/A) CONSULTS Cardiac clearance-Dr. Ryan Oh scanned in [facility] The Following Tests/Procedures Have Been Initiated: CBC, BMP, PT/PTT,COVID ordered in [facility] per surgeon COVID test scheduled 01-29-2022 11am. Patient aware and verbalizes understanding. EKG ordered in [facility] per surgeon-EKG not completed in [facility] today- patient had an EKG completed 10-29-2021 Result: NORMAL SINUS RHYTHM WITH SINUS ARRHYTHMIA Instructions Given to Patient: Instructions located in the after visit summary. Hibiclens and instructions given to patient. Patient given verbal and written preop instructions and voices comprehension and compliance. SIGNATURE: Ban Donnelly APRN.CNP PATIENT NAME: Kaelyn Powers DATE: January 22, 2022 TIME: 12:00 PM PAGER/CONTACT #: documented in this encounterKettering [facility] Hospital06-07-2022 Instructions* Patient Instructions* Ban Donnelly APRN.EVELIA - 01/22/2022 1:40 PM EDT PATIENT PREOPERATIVE INSTRUCTIONS Bryce Greer MD has scheduled you for your procedure at this surgery center: [facility]: [phone], [address] [address] Please read below carefully for your personalized [...] - Stop Vitamin E, fish oil, Ginko, Gilby's Wort, flax seed oil, multivitamins, CBD oil, [...] surgery. Ban Donnelly APRN.EVELIA documented in this encounterKettering [facility] Hospital05-31-2022 [facility]05-31-2022 History of Present illness Narrative* Bryce Greer MD - 01/15/2022 11:15 AM EDT NEUROSURGERY POST OP NOTE Dr. Bryce Greer MD, [facility] Date of visit: January 15, 2022 Patient Name: Ms.Debora Nataly Powers Date of : 1955 Current Age: [age] year old MRN/E# [id number] Last Office Visit: 12/18/2021 SURGERY #1: Left [...] consult on 10/28/2021 after being transferred from [facility] after a ground-level fall while on ASA and Plavix. On presentation to the [facility] emergency department new imaging was obtained [...] cranioplasty. This note was partially generated using [employer] recognition system, and there may be some incorrect words, spellings, and punctuation that were not noted in checking the note before saving. documented in this encounterKettering [facility] Hospital05-03-2022 [facility]05-03-2022 [facility]04-05-2022 [facility]04-05-2022 [facility]03-30-2022 [facility]03-29-2022 [facility]03-29-2022 Note [facility]03-28-2022 [facility] 11-11-2021 [facility]03-27-2022 [facility]03-26-2022 [facility]03-26-2022 [facility]03-25-2022 [facility]03-24-2022 [facility]03-23-2022 [facility]03-23-2022 Note [facility]03-23-2022 [facility] 11-06-2021 [facility]03-22-2022 [facility]03-22-2022 [facility]03-21-2022 [facility]03-21-2022 [facility]03-21-2022 [facility]03-20-2022 [facility]03-20-2022 Note [facility]03-20-2022 [facility] 11-03-2021 [facility]03-19-2022 [facility]03-19-2022 [facility]03-18-2022 [facility]03-18-2022 [facility]03-18-2022 [facility]03-18-2022 [facility]03-17-2022 Note [facility]03-17-2022 [facility] 10-31-2021 [facility]03-16-2022 [facility]03-15-2022 [facility]03[facility]15-[facility] Note [facility]03-13-20[facility]03-06-2017 History of Past illness Narrative* Problem Noted Date Resolved Date Urinary tract infection with hematuria 7 06/26/2019 documented as of this encounter (statuses as of 11/10/2021) [facility]03[facility] History of Past illness Narrative* Problem Noted Date Resolved Date Urinary tract infection with hematuria 7 06/26/2019 documented as of this encounter (statuses as of 01/15/2022) [facility]03[facility] History of Past illness Narrative* Problem Noted Date Resolved Date Urinary tract infection with hematuria 7 06/26/2019 documented as of this encounter (statuses as of 01/15/2022) [facility]03[facility] History of Past illness Narrative* Problem Noted Date Resolved Date Urinary tract infection with hematuria 7 06/26/2019 documented as of this encounter (statuses as of 01/16/2022) [facility] History of Past illness Narrative* Problem Noted Date Resolved Date Urinary tract infection with hematuria 7 06/26/2019 documented as of this encounter (statuses as of 01/17/2022) [facility]03[facility] History of Past illness Narrative* Problem Noted Date Resolved Date Urinary tract infection with hematuria 7 06/26/2019 documented as of this encounter (statuses as of 01/22/2022) [facility] HospitalDis[facility] summary Author Gwendolyn Petersen [facility] June 14, 2023 10:12am Note Date/Time June 14, 2023 1 0:12am [facility] Medical Records Department [address] [place] [address] Instructions for Home/Discharge Instructions 06/14/23 1010 MR#: [id number] Acct: [id number] Name: KAELYN POWERS Rep #:[id number] : 1955 67 From: Gwendolyn Petersen MD PCP: Iris Clayton COUNTER TACKER-C Status:ADM I N Discharge Instructions Diet Discharge [...] by Gwendolyn Petersen MD>Gwendolyn Petersen MD CC: LANEY Clayton; Dr. Gena Johnson MD; Dr. Nic Caraballo MD ~ Signed [facility] Work Phone: Discharge summary Author Gwendolyn Petersen [facility] June 14, 2023 10:14am Note Date/Time June 14, 2023 1 0:14am [facility] Medical Records Department [address] [place] [address] Discharge Summary 06/14/23 1012 MR#: [id number] Acct: [id number] Name: HODAKAELYN Nataly Rep #:[id number] : 1955 67 From: Gwendolyn Petersne MD PCP: LANEY Ma Status:ADM I N Location: ICU CVICU 4-1 Providers Date of Admission: 06/11/23 Date of Discharge: 10/28/23 Primary Care Physician: LANEY Ma Consultations 06/11/23 [...] % (Auto) 56.4, Lymph % (Auto) 28.0, Jewell% (Auto) 13.9 H, Eos % (Auto) 1.0, [...] Palomo at discharge?: Yes Done w/ Acute WI measure.: Yes Documented LVEF (%): 60 Discharge [...] discharge to schedule your hospital follow-up appointment ( [phone]) - Please follow-up with oncology upon discharge [...] Self Care Charges/Coding Visit Charges Inpatient E&M: 92988 Disch Hosp >30min 06/14/23 1014 <Electronically signed by Gwendloyn Petersen MD> Cosigner Signature (if applicable): CC: LANEY Clayton; Dr. Gwendolyn Petersen MD~ Signed [facility] Work Phone: Discharge summary Author Isreal Carvalho [facility] July 22, 2023 12:53pm Note Date/Time July 22, 2023 1 2:53pm [facility] Medical Records Department [address] [place] [address] Instructions for Home/Discharge Instructions 07/22/23 1253 MR#: [id number] Acct: [id number] Name: KAELYN POWERS Rep #:[id number] : 1955 67 From: Isreal cross MD PCP: Dr. Sharif Christianson MD Status:RE [facility] Discharge Instructions Procedure Port-A-Cath Diet Discharge Diet: [...] With: Isreal Carvalho MD When: as needed [phone] Test Results: Test results from this visit [...] CC: Dr. Sharif Christianson MD ~ Signed [facility] Work Phone: Evaluation note* Diagnosis Intracranial hemorrhage (HCC) Unspecified intracranial hemorrhage [facility]* Diagnosis Onset Date Resolution Status Adenomatous polyps chronic Diverticulosis chronic Gastritis chronic Iron deficiency anemia due to chronic blood loss chronic Left upper lobe pulmonary nodule chronic Atherosclerosis of coronary artery of [place] heart without angina pectoris chronic Essential (primary) hypertension chronic Hyperlipidemia chronic Peripheral vascular occlusive disease chronic Adenomatous polyps chronic Diverticulosis chronic Gastritis chronic Iron deficiency anemia due to chronic blood loss chronic Left upper lobe pulmonary nodule [facility] Work Phone: Evaluation note* Diagnosis Intracranial hemorrhage (HCC)- Primary Unspecified intracranial hemorrhage Acquired skull defect Other specified acquired deformity of head [facility]* Diagnosis Intracranial hemorrhage (HCC)- Primary Unspecified intracranial hemorrhage Acquired skull defect Other specified acquired deformity of head [facility]* Diagnosis Intracranial hemorrhage (HCC) Unspecified intracranial hemorrhage [facility]* Diagnosis Skull defect- Primary Unspecified acquired deformity of head Skull defect Unspecified acquired deformity of head [facility]* Diagnosis Preop examination Preoperative examination, unspecified Defect of skull Unspecified acquired deformity of head Hypertension, unspecified type Diabetes mellitus without complication (HCC) Type II or unspecified type diabetes mellitus without mention of complication, not stated as uncontrolled Coronary artery disease involving [place] coronary artery of [place] heart without angina pectoris Skull defect Unspecified acquired deformity of head [facility]* Diagnosis Intracranial hemorrhage (HCC)- Primary Unspecified intracranial hemorrhage Acquired skull defect Other specified acquired deformity of head [facility]* Diagnosis Intracranial hemorrhage (HCC)- Primary Unspecified intracranial hemorrhage [facility]* Diagnosis Intracranial hemorrhage (HCC)- Primary Unspecified intracranial hemorrhage [facility]* Diagnosis Subdural hemorrhage (HCC) Subdural hemorrhage [facility]* Diagnosis Onset Date Resolution Status Atherosclerosis of coronary artery of [place] heart without angina pectoris chronic Essential (primary) hypertension chronic Hyperlipidemia chronic Peripheral vascular occlusive disease chronic Iron deficiency anemia due t o chronic blood loss chronic Physical debility acute S/P craniotomy acute Subdural hematoma acute Type 2 diabetes mellitus acu te Urinary incontinence acute Acute on chronic blood loss anemia chronic Atherosclerosis of coronary artery of [place] heart without angina pectoris chronic Essential (primary) hypertension chronic History of coronary artery stent placement October 102015 chronic Hyperlipidemia chronic Iron deficiency anemia due t o chronic blood loss chronic Nicotine dependence chronic Peripheral vascular occlusive disease [facility] Work Phone: Evaluation note* Diagnosis Intracranial hemorrhage (HCC)- Primary Unspecified intracranial hemorrhage [facility]* Diagnosis Acute subdural hematoma- Primary Subdural hemorrhage Intracranial hemorrhage (HCC) Unspecified intracranial hemorrhage [facility]* Diagnosis Intracranial hemorrhage (HCC) Unspecified intracranial hemorrhage [facility] Onset Date Resolution Status [...] upper lobe pulmonary nodule chronic Palpitations acute [facility] Work Phone: Evaluation note* Diagnosis Onset [...] chronic Left upper lobe pulmonary nodule chronic [facility] Work Phone: Evaluation note* Diagnosis Onset Date Resolution Status Adenomatous polyps chronic Diverticulosis chronic Gastritis chronic Iron deficiency anemia due to chronic blood loss chronic Left upper lobe pulmonary nodule chronic Palpitations acute Iron deficiency anemia due to chronic blood loss chronic Left upper lobe pulmonary nodule chronic [facility] Work Phone: Evaluation note* Diagnosis Onset Date Resolution Status Iron deficiency anemia due to chronic blood loss chronic Left upper lobe pulmonary nodule chronic Claudication resolved [facility] Work Phone: Evaluation note* Diagnosis Onset Date Resolution Status Claudication resolved [facility] Work Phone: Evaluation note* Diagnosis Onset Date Resolution Status Iron deficiency anemia due to chronic blood loss chronic Left upper lobe pulmonary nodule chronic [facility] Work Phone: Evaluation noteNo assessment information available [facility] Work Phone: Evaluation note* Diagnosis Onset Date Resolution Status Coronary artery disease acut e COVID-19 acute Diabetes acute Encephalopathy acute acute NSTEMI, initial episode of care acute Peripheral arterial disease acute [facility] Work Phone: evaluation note* Diagnosis Onset [...] device acute NSTEMI, initial episode of care [facility] Work Phone: evaluation note* Diagnosis Onset [...] Cancer of upper lobe of left lung [facility] Work Phone: Evaluation note* Diagnosis Onset [...] of upper lobe of left lung acute [facility] Work Phone: Evaluation note* Diagnosis Onset [...] of upper lobe of left lung acute [facility] Work Phone: Evaluation note* Diagnosis Onset [...] of upper lobe of left lung acute [facility] Work Phone: History and physical note Author Isreal Carvalho [facility] July 22, 2023 12:02pm Note Date/Time July 22, 2023 1 2:03pm [facility] Medical Records Department [address] [place] [address] History & Physical Exam 07/22/23 1202 MR#: [id number] Acct: [id number] Name: KAELYN POWERS Rep #:[id number] : 1955 67 From: Isreal cross MD PCP: Dr. 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 mary beth/sikh: Hindu seatbelt use: always do you feel safe [...] preparation for surgery. Isreal Carvalho MD Pager: [facility] [address] [place] [address], [address] [place] [phone] Office: I have examined the patient and the H&P has been reviewed. There are no clinicalchanges since date of exam. 07/22/23 1202 <Electronically signed by Isreal Carvalho MD> Cosigner Signature (if applicable): CC: Dr. Isreal Carvalho MD; Dr. Sharif Christianson MD~ Signed [facility] Work Phone: Progress note Author Shannan Waldrop [facility] Note Date/Time May 17, 2025 1:31pm [facility] [address] [place] [address] OFFICE VISIT Date of Service: 05/17/25 1307 MR#: [id number] Acct: [id number] Name: KAELYN POWERS Rep #: [id number] : 1955 From: Shannan romero MD Age/Sex: 69/F Location: [place] Status: Signed HPI Subjective Date of Service 05/17/25 Chief Complaint NSCLC on treatment History of [...] ANTIBODY / CLONE RESULT ER (6F11) negative IN (1E2) negative AE1-3 (AE1/AE3/PCK26) positive CK7 (OV-TL12/30) positive CK8 (13iqvuD12) positive CK20 (KS20.8) negative TTF-1 (8G7G3/1) positive [...] disease. May 2023: Patient was seen at [facility] by thoracic surgery Dr. Green and was [...] top-normal caliber of the CBD is similar. March 28, 2025 CT chest and abdomen: IMPRESSION: Coronary artery calcification (CAC) is is [...] abdomen and pelvis recommended for further evaluation. Treatment summary and response: * Definitive concomitant [...] systemic therapy with pembrolizumab September 21, 2024. 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 mary beth/sikh: Hindu seatbelt use: always do you feel safe at home: Yes ROS Constitutional Constitutional: Reports systems reviewed and no addt'l complaints, except as documented; Denies fatigue, fever(s) or weight loss Eyes Eyes: Reports systems reviewed and no addt'l complaints, except as documented; Denies change in vision ENT HEENT: Denies headache(s), mouth lesions, nasal congestion, nasal discharge or post nasal drip Cardiovascular Cardiovascular: Reports systems reviewed and no addt'l complaints, except as documented and claudication; Denies chest pain with activity or edema Respiratory/Chest Respiratory/Chest: Reports systems reviewed and no addt'l complaints, except as documented, cough, dyspnea on exertion and other Details: Exertional dyspnea is chronic unchanged ; Denies hemoptysis Gastrointestinal Gastrointestinal: Reports systems reviewed and no addt'l complaints, except as documented and constipation; Denies abdominal pain, change in bowel habits, hematochezia, melena or nausea Genitourinary Genitourinary: Reports systems reviewed and no addt'l complaints, except as documented and urinary frequency; Denies dysuria or hematuria Musculoskeletal Musculoskeletal: Reports systems reviewed and no addt'l complaints, except as documented and arthralgias Integumentary Integumentary: Reports systems reviewed and no addt'l complaints, except as documented and other Details: Rash resolved and no longer using topical steroid ; Denies new lesions Neurologic Neurologic: Reports systems [...] complaints, except as documented Intake Vital Signs 04/26/25 10:59 05/17/25 13:09 05/17/25 13:13 Height 5 ft 1 in 5 ft 1 in 5 ft 1 in Weight: 84.141 kg 85.502 kg BMI 35.0 35.6 BP 106/67 118/71 Blood Pressure Location Lt brachial Lt brachial Position Sitting Sitting Respiration 16 16 Pulse 63 67 Pulse Source Monitor Monitor Temp 97.8 F 97.6 F L Temperature Source Temporal Artery Temporal Artery Pulse Oximetry (%) 96 94 Oxygen Delivery Method room air room air Intake Is patient in pain?: Yes (chronic pain ) Pain scale (1-10): 6 Allergies oxycodone (From Percocet) Allergy (Intermediate, Verified 04/26/25 10:52) Itching Medications ?Medication ?Instructions ?Recorded ?Confirmed ?Type oxybutynin chloride 15 mg 15 mg PO DAILY bladder 10/0105/17/25 History tablet,extended release 24 hr metformin 1,000 mg tablet 1,000 mg PO BID dm 10/01/22 05/17/25 History bupropion HCl 150 mg tablet,12 hr 150 mg PO Q12H 06/1105/17/25 History sustained-release ondansetron 8 mg disintegrating 8 mg PO Q8H PRN nausea and 06/02/24 05/17/25 Rx tablet vomiting #30 tabs lisinopril 5 mg tablet 5 mg PO QDAY 08/31/24 History Disability Placard #1 ea 09/07/24 05/17/25 Rx lidocaine-prilocaine 2.5 %-2.5 % 1 applic topical ONCE PRN port 11/02/24 05/17/25 Rx topical cream access 30 days #30 grams omeprazole 20 mg tablet,delayed 20 mg PO QDAY 12/14/24 05/17/25 History release pembrolizumab 25 mg/mL intravenous 200 mg (8 mL) .Rout e .COMPLEX #8 mL 12/30/24 05/17/25 Rx solution cholecalciferol (vitamin D3) 1,250 1,250 mcg PO QWEEK 04/05/25 05/17/25 History mcg (50,000 unit) capsule metoprolol tartrate 25 mg tablet 25 mg PO QDAY #90 tab s 04/05/25 05/17/25 Rx cilostazol 100 mg tablet 100 mg PO BID #180 tabs 03/1905/17/25 Rx levothyroxine 88 mcg tablet 88 mcg PO QDAY 04/26/25 History (Levoxyl) oxycodone-acetaminophen 5 mg-325 1 tab PO Q12H PRN 05/17/25 History mg tablet Have you fallen in the past year?: No Central Venous Access Central Venous Access: Yes Port/PICC: Port CBC May 17, 2025 reviewed in EMR. 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 C78.01; C78.02 Laterality: bilateral Assessment and Plan Assessment and Plan (1) Cancer of upper lobe of left lung: Status: Chronic (2) Hypothyroidism: Status: Chronic Qualifiers: Hypothyroidism type: due to medication Qualified Code(s): E03.2 - Hypothyroidism due to medicaments and other exogenous substances Comment: Secondary to PD-L1 inhibitor immunotherapy (3) Metastasis to lung: Status: Chronic Qualifiers: Laterality: bilateral Qualified Code(s): C78.01 - Secondary malignant neoplasm of right lung; C78.02 - Secondary malignant neoplasm of left lung Plan 69-year-old female who first presented with clinical stage [...] itchy rash on the back manageable with [id number] hydrocortisone twice daily. Anorexia and nausea seem to be more related to Trulicity rather than immunotherapy, resolved once the drug was discontinued. Imaging November 30, 2024 shows a mixed response (see summary under HPI); since there are no new lesions at this possible pseudo progression of some lesions. Imaging March 28, 2025 showed slight decrease in the size of the mass left upper lobe and marked involution of bilateral lung nodules. A questionable softtissue density in the right sacroiliac joint is still undergoing further evaluation with CT. In December 2024 she was noted to have developed an acquired hypothyroidism most likely secondary to immune mediated side effect of PD-L1 inhibitor and started on oral replacement therapy. Chronic comorbid conditions: Diabetes, hypertension, dyslipidemia, coronary artery disease, rheumatoid arthritis, diverticular disease, peripheral vascular disease history of recurrent UTIs and renal calculus disease, B12 deficiency anemia. Plan: Based on NCCN guidelines: 1. Continue with single agent PD-L1 inhibitor pembrolizumab. Further systemic chemotherapy with single agent Taxotere can be considered in the future specially after he chemotherapy rest. 2. Refered to palliative. 3. Continue long-term B12 supplements subcu for B12 deficiency anemia. 4. Continue long-term thyroid replacement therapy, as per PCP. 5. Elective imaging every 3-4 months, next to schedule end of June/early July 2025. Patient was seen with a close friend, impression and plan discussed. Shannan Waldrop MD Business Developer, [facility] Divisions of Medical Oncology & Hematology Department of Internal Medicine [place] [address] This note was generated using a voice [...] you fallen in the past year?: No 05/17/25 1331 <Electronically signed by Shannan chand MD> Date _ Shannan Waldrop MD Cosigner Signature: Date (if applicable) CC: ~ [facility] Work Phone: Progress note Author Sabi Lynn [facility] Note Date/Time June 07, 2025 1 2:43pm [facility] [place] [address] OFFICE VISIT Date of Service: 06/07/25 1059 MR#: [id number] Acct: [id number] Name: KAELYN POWERS Rep #: [id number] : 1955 From: Sabi Jc ch COUNTER TACKER COUNTER TACKER-C Age/Sex: 69/F [facility] Status: Signed HPI Subjective Date of Service 06/07/25 Chief Complaint NSCLC on treatment History of [...] ANTIBODY / CLONE RESULT ER (6F11) negative IN (1E2) negative AE1-3 (AE1/AE3/PCK26) positive CK7 (OV-TL12/30) positive CK8 (35ppnwG18) positive CK20 (KS20.8) negative TTF-1 (8G7G3/1) positive [...] disease. May 2023: Patient was seen at [facility] by thoracic surgery Dr. Green and was [...] top-normal caliber of the CBD is similar. March 28, 2025 CT chest and abdomen: IMPRESSION: Coronary artery calcification (CAC) is is [...] abdomen and pelvis recommended for further evaluation. Treatment summary and response: * Definitive concomitant [...] systemic therapy with pembrolizumab September 21, 2024. Interval History The patient is presenting to clinic accompanied by significant other for an evaluation anticipating she will begin cycle 13 pembrolizumab. Concerns today include cough and sinus congestion x 6 days. Symptoms peaked over the weekend, now improved. Has remained afebrile throughout. Sore throat resolved. Specifically denies headache, sinus drainage, ear pain, SOB, cough, diarrhea, skin changes, abd pain, swelling of her extremities- now with compression stockings. Admits she missed several doses of levothyroxine since her last visit. 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 mary beth/sikh: Hindu seatbelt use: always do you feel safe at home: Yes ROS ROS Narrative Negative except as documented in the interval HPI Intake Vital Signs 04/26/25 10:59 06/07/25 11:00 Height 5 ft 1 in 5 ft 1 in Weight: 185 lb 7 oz BMI 35.0 BP 117/73 Blood Pressure Location Lt brachial Position Sitting Respiration 18 Pulse 67 Pulse Source Monitor Temp 98 F Temperature Source Temporal Artery Pulse Oximetry (%) 95 Oxygen Delivery Method room air Intake Accompanied by: Is patient in pain?: No Allergies oxycodone (From Percocet) Allergy (Intermediate, Verified 06/07/25 11:04) Itching Medications ?Medication ?Instructions ?Recorded ?Confirmed ?Type oxybutynin chloride 15 mg 15 mg PO DAILY bladder 10/0106/07/25 History tablet,extended release 24 hr metformin 1,000 mg tablet 1,000 mg PO BID dm 10/01/22 06/07/25 History ondansetron 8 mg disintegrating 8 mg PO Q8H PRN nausea and 06/02/24 06/07/25 Rx tablet vomiting #30 tabs lisinopril 5 mg tablet 5 mg PO QDAY 08/31/24 History Disability Placard #1 ea 09/07/24 06/07/25 Rx lidocaine-prilocaine 2.5 %-2.5 % 1 applic topical ONCE PRN port 11/02/24 06/07/25 Rx topical cream access 30 days #30 grams omeprazole 20 mg tablet,delayed 20 mg PO QDAY 12/14/24 06/07/25 History release pembrolizumab 25 mg/mL intravenous 200 mg (8 mL) .Rout e .COMPLEX #8 mL 12/30/24 06/07/25 Rx solution cholecalciferol (vitamin D3) 1,250 1,250 mcg PO QWEEK 04/05/25 06/07/25 History mcg (50,000 unit) capsule metoprolol tartrate 25 mg tablet 25 mg PO QDAY #90 tab s 04/05/25 06/07/25 Rx cilostazol 100 mg tablet 100 mg PO BID #180 tabs 03/1906/07/25 Rx levothyroxine 88 mcg tablet 88 mcg PO QDAY 04/26/25 History (Levoxyl) oxycodone-acetaminophen 5 mg-325 1 tab PO Q12H PRN 06/07/25 History mg tablet Have you fallen in the past year?: No Central Venous Access Central Venous Access: Yes Port/PICC: Port Laboratory Tests 06/07/25 10:07 WBC 9.9 Hgb 11.0 L Hct 34.6 L Plt Count 317 Absolute Neuts (auto) 7.3 Sodium 135 Potassium 4.4 Chloride 100 Carbon Dioxide 20.0 L BUN 12 Creatinine 0.79 Glucose 187 H Calcium 10.0 Phosphorus 3.5 Total Bilirubin 0.30 AST 21 ALT 10 Alkaline Phosphatase 87 TSH 23.500 H Exam Physical Exam Narrative ECOG 1 Const [...] all extremities and no focal motor deficits Speech: speech normal Gait (Neuro): normal gait Coding Level of Care Code Off vis,est,level 4 Exam Problem Focused Diagnoses Cancer of upper lobe of left lung C34.12 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 Hypothyroidism type: due to medication Malignant neoplasm metastatic to both lungs C78.01; C78.02 Laterality: bilateral Assessment and Plan Assessment and Plan (1) Cancer of upper lobe of left lung: Status: Chronic (2) Hypothyroidism: Status: Chronic Qualifiers: Hypothyroidism type: due to medication Qualified Code(s): E03.2 - Hypothyroidism due to medicaments and other exogenous substances Comment: Secondary to PD-L1 inhibitor immunotherapy (3) Metastasis to lung: Status: Chronic Qualifiers: Laterality: bilateral Qualified Code(s): C78.01 - Secondary malignant neoplasm of right lung; C78.02 - Secondary malignant neoplasm of left lung Plan 69-year-old female who first presented with clinical stage [...] itchy rash on the back manageable with [id number]-cli-egikvps hydrocortisone twice daily. Anorexia and nausea seem to be more related to Trulicity rather than immunotherapy, resolved once the drug was discontinued. Imaging November 30, 2024 shows a mixed response (see summary under HPI); since there are no new lesions at this possible pseudo progression of some lesions. Imaging March 28, 2025 showed slight decrease in the size of the mass left upper lobe and marked involution of bilateral lung nodules. A questionable softtissue density in the right sacroiliac joint is still undergoing further evaluation with CT. In December 2024 she was noted to have developed an acquired hypothyroidism most likely secondary to immune mediated side effect of PD-L1 inhibitor and started on oral replacement therapy. Chronic comorbid conditions: Diabetes, hypertension, dyslipidemia, coronary artery disease, rheumatoid arthritis, diverticular disease, peripheral vascular disease history of recurrent UTIs and renal calculus disease, B12 deficiency anemia. Plan: Based on NCCN guidelines: 1. Continue with single agent PD-L1 inhibitor pembrolizumab. Further systemic chemotherapy with single agent Taxotere can be considered in the future specially after he chemotherapy rest. Proceed with cycle 13 pembrolizumab. 2. Referred to palliative. 3. Continue long-term B12 supplements subcu for B12 deficiency anemia. 4. Continue long-term thyroid replacement therapy, as per PCP. For now, continue current dose as she missed several doses recently. 5. Elective imaging every 3-4 months, next to schedule end of June/early July 2025. Tentatively scheduled for 07/11/25 and 07/15/25. . Clinical Quality Measures Falls Risk Screening/Assistive Devices Have you fallen in the past year?: No 06/07/25 1143 <Electronically signed by Sabi HORVATHC> Date _ Sabi DAVISON Cosigner Signature: Date (if applicable) CC: ~ [facility] [employer] Work Phone: Reason for referral (narrative)* Outpatient Procedure (Routine) - Pending Review Specialty Diagnoses / Procedures Referred By Shweta mirza [facility] Diagnoses Intracranial hemorrhage (HCC) Acquired skull defect Procedures ECG COMPLETE ECG ROUTINE ECG W/LEAST 12 LDS W/I&R Kacy Glez, SOLAR ENERGY SYSTEMS ENGINEER.MILANESE KNITTING MACHINE OPERATOR [address] [place] [address] [facility] [place] [address] Referral ID Status Reason Start Date Expiration Date Visits Requested Visits Authorized [id number] Pending Review Auto-Generat ed Referral 01/15/2022 01/15/2023 [facility]No reason for referral information availableWMercy [facility] Work Phone: Summary Purpose Family History No [...] FoundDocuments on File Type Date Recorded Patient Cylinder Dyer Expl anation Advance Directive(s) 10/28/2021 3:03 AM Advance Directive(s) 10/21/2019 10:22 AM Advance Directive(s) 07/05/2019 6:53 AM Latest Code Status on File Code Status Date Activated Date Inactivated Comments Full Code 11/03/2021 10:46 AM Full Code Order Discussed With: Surrogate Antoniettai on Maker Advance Directive Response Recorded Date/ Time Advance Directives No June 18, 2018 10:36am Living Will No October 27, 2021 10:32pm Power of Dressmaker Or Tailor No October 27 10:32pm Documents on File Type Date Recorded Patient Cylinder Dyer Expl anation Advance Directive(s) 10/28/2021 3:03 AM [...] Documents on File Type Date Recorded Patient Cylinder Dyer Expl anation Advance Directive(s) 02/01/2022 6:37 AM Advance Directive(s) 10/28/2021 3:03 AM Advance Directive(s) 10/21/2019 10:22 AM Advance Directive(s) 07/05/2019 6:53 AM Advance Directive Response Recorded Date/ Time Advance Directives No June 18, 2018 10:36am Living Will No March 28 10:34am Power of Dressmaker Or Tailor No March 28 10:34am Latest Code Status [...] Date/ Time Name of Medical Power of Dressmaker Or Tailor ELROY- VENTURA April 23, 2022 10:55am Advance Directives No June 18, 2018 10:36am Living Will Yes April 23 10:55am Power of Dressmaker Or Tailor Yes April 23, 2022 10:55am Advance Directive Response Recorded Date/ Time Advance Directives No June 18, 2018 10:36am Living Will No April 08 2:39pm Power of Dressmaker Or Tailor No April 08 2:39pm Advance Directive Response Recorded Date/ Time Name of Medical Power of Dressmaker Or Tailor ELROY- VENTURA April 23, 2022 9:55am Advance Directives No June 18, 2018 9:36am Living Will Yes April 23 9:55am Power of Dressmaker Or Tailor Yes April 23, 2022 9:55am Advance Directive Response Recorded Date/ Time Advance Directives No June 18, 2018 9:36am Living Will Yes April 23 9:55am Power of Dressmaker Or Tailor Yes April 23, 2022 9:55am Advance Directive Response Recorded Date/ Time Advance Directives No June 18, 2018 10:36am Living Will Yes April 23 10:55am Power of Dressmaker Or Tailor Yes April 23, 2022 10:55am Advance Directive Response Recorded Date/ Time Advance Directives No June 18, 2018 10:36am Living Will No June 11 3:14pm Power of Dressmaker Or Tailor No June 11, 2023 3:14pm Advance Directive Response Recorded Date/ Time Advance Directives No June 18, 2018 10:36am Living Will No June 11 7:53pm Power of Dressmaker Or Tailor No June 11, 2023 7:53pm Advance Directive Response Recorded Date/ Time Advance Directives No June 7:11am Living Will No July 17 023 12:57pm Power of Dressmaker Or Tailor No July 17, 2023 12:57pm Advance Directive Response Recorded Date/ Time Advance Directives No July 9:52am Living Will No July 28 9:52am Power of Dressmaker Or Tailor No July 28, 2023 9:52am Advance Directive Response Recorded Date/ Time Advance Directives No September 01, 2023 10:25am Living Will No September 01 10:25am Power of Dressmaker Or Tailor No September 01, 2023 10:25am Advance Directive Response Recorded Date/ Time Advance Directives No October 29 024 10:30am Living Will No October 30, 2023 10:30am Power of Dressmaker Or Tailor No October 29 10:30am Advance Directive Response Recorded Date/ Time Living Will No October 30, 2023 10:30am Do you have a Healthcare Power of Dressmaker Or Tailor? No October 30, 2023 10:30am Living Will No November 23, 2024 10:40am Do you have a Healthcare Power of Dressmaker Or Tailor? No November 23, 2024 10:40am Advance Directives No November 23 10:40am Advance Directive Response Recorded Date/ Time Living Will No December 14, 2024 11:42am Do you have a Healthcare Power of Dressmaker Or Tailor? No December 14, 2024 11:42am Advance Directives No December 14 11:42am Advance Directive Response Recorded Date/ Time Living Will No January 04, 2025 2 :16pm Do you have a Healthcare Power of Dressmaker Or Tailor? No January 04, 2025 2:16pm Advance Directives No January 04 2:16pm Advance Directive Response Recorded Date/ Time Living Will No February 22, 2025 1 2:20pm Do you have a Healthcare Power of Dressmaker Or Tailor? No February 22, 2025 12:20pm Advance Directives No February 22 12:20pm Advance Directive Response Recorded Date/ Time Living Will No March 15, 2025 12:55pm Do you have a Healthcare Power of Dressmaker Or Tailor? No March 15, 2025 12:55pm Advance Directives No March 15 12:55pm Advance Directive Response Recorded Date/ Time Living Will No October 30, 2023 10:30am Do you have a Healthcare Power of Dressmaker Or Tailor? No October 30, 2023 10:30am Living Will No March 15, 2025 12:55pm Do you have a Healthcare Power of Dressmaker Or Tailor? No March 15, 2025 12:55pm Advance Directives No March 15 12:55pm Advance Directive Response Recorded Date/ Time Living Will No October 30, 2023 10:30am Do you have a Healthcare Power of Dressmaker Or Tailor? No October 30, 2023 10:30am Living Will No April 05 1:40pm Do you have a Healthcare Power of Dressmaker Or Tailor? No April 05, 2025 1:40pm Advance Directives No April 05, 2025 1:40pm Advance Directive Response Recorded Date/ Time Living Will No October 30, 2023 10:30am Do you have a Healthcare Power of Dressmaker Or Tailor? No October 30, 2023 10:30am Living Will No April 26 12:27pm Do you have a Healthcare Power of Dressmaker Or Tailor? No April 26, 2025 12:27pm Advance Directives No April 12:27pm Advance Directive Response Recorded Date/ Time Living Will No October 30, 2023 10:30am Do you have a Healthcare Power of Dressmaker Or Tailor? No October 30, 2023 10:30am Living Will No May 17, 2025 2:49pm Do you have a Healthcare Power of Dressmaker Or Tailor? No May 17, 2025 2:49pm Advance Directives No April 2:49pm Advance Directive Response Recorded Date/ Time Living Will No October 30, 2023 10:30am Do you have a Healthcare Power of Dressmaker Or Tailor? No October 30, 2023 10:30am Living Will No June 07 12:06pm Do you have a Healthcare Power of Dressmaker Or Tailor? No June 07, 2025 12:06pm Advance Directives No June 07, 2025 12:06pm Advance Directive Response Recorded Date/ Time Living Will No October 30, 2023 9:30am Do you have a Healthcare Power of Dressmaker Or Tailor? No October 30, 2023 9:30am Living Will No June 07 11:06am Do you have a Healthcare Power of Dressmaker Or Tailor? No June 07, 2025 11:06am Advance Directives No June 07, 2025 11:06am Reason for Referral Specialty Diagnoses / Procedures Referred By Contac t Referred To Contact CT IMAGING Diagnoses Intracranial hemorrhage (HCC) Procedures CT BRAIN WO IVCON CT HEAD/BRAIN W/O CONTRAST MATERIAL Loan Rivas, TANK [address] [place] [address] Ct Imaging Referral ID Status Reason Start Date Expiration Date Visits Requested Visits Authorized [id number] Pending Review Auto-Generat ed Referral 11/10/2021 12/10/2022 1 1 Specialty Diagnoses / Procedures Referred By Contac t Referred To Contact CT IMAGING Diagnoses Intracranial hemorrhage (HCC) Procedures CT BRAIN WO IVCON CT HEAD/BRAIN W/O CONTRAST MATERIAL Kacy Glez, SOLAR ENERGY SYSTEMS ENGINEER.MILANESE KNITTING MACHINE OPERATOR [address] [place] [address] Ct Imaging Referral ID Status Reason Start Date Expiration Date V isits Requested Visits Authorized [id number] Closed Auto-Generate d Referral 12/25/2021 02/25/2022 1 1 Specialty Diagnoses / Procedures Referred By Contac t Referred To Contact CT IMAGING Diagnoses Subdural hemorrhage (HCC) Procedures CT BRAIN WO IVCON CT HEAD/BRAIN W/O CONTRAST MATERIAL Jitendra Apple, SOLAR ENERGY SYSTEMS ENGINEER.MILANESE KNITTING MACHINE OPERATOR [address] [address] [address] Imaging Referral ID Status Reason Start Date Expiration Date V isits Requested Visits Authorized [id number] Closed Auto-Generate d Referral 04/12/2022 05/05/2023 1 1 Referral ID Status Reason Start Date Expiration Date Visits Requested Visits Authorized [id number] Waiting for Response Auto-Generat ed Referral 05/07/2022 06/06/2023 1 1 Referral ID Status Reason Start Date Expiration Date V isits Requested Visits Authorized [id number] Closed Auto-Generate d Referral 05/07/2022 07/07/2022 1 [...] pulmonary nodule Atherosclerosis of coronary artery of [place] heart without angina pectoris Essential (primary) hypertension [...] pulmonary nodule Atherosclerosis of coronary artery of [place] heart without angina pectoris Essential (primary) hypertension [...] pulmonary nodule Atherosclerosis of coronary artery of [place] heart without angina pectoris Essential (primary) hypertension [...] pulmonary nodule Atherosclerosis of coronary artery of [place] heart without angina pectoris Essential (primary) hypertension [...] Visit Atherosclerosis of c oronary artery of [place] heart without angina pectoris Essential (primary) hypertension Hyperlipidemia Peripheral vascular occlusive disease Iron deficiency anemia due to chronic blood loss Physical debility S/P craniotomy Subdural hematoma Type 2 diabetes mellitus Urinary incontinence Acute on chronic blood loss anemia Atherosclerosis of coronary artery of [place] heart without angina pectoris Essential (primary) hypertension [...] Visit Atherosclerosis of c oronary artery of [place] heart without angina pectoris Essential (primary) hypertension Hyperlipidemia Peripheral vascular occlusive disease Iron deficiency anemia due to chronic blood loss Physical debility S/P craniotomy Subdural hematoma Type 2 diabetes mellitus Urinary incontinence Acute on chronic blood loss anemia Atherosclerosis of coronary artery of [place] heart without angina pectoris Essential (primary) hypertension [...] Visit Atherosclerosis of c oronary artery of [place] heart without angina pectoris Essential (primary) hypertension Hyperlipidemia Peripheral vascular occlusive disease Iron deficiency anemia due to chronic blood loss Physical debility S/P craniotomy Subdural hematoma Type 2 diabetes mellitus Urinary incontinence Acute on chronic blood loss anemia Atherosclerosis of coronary artery of [place] heart without angina pectoris Essential (primary) hypertension [...] NEW LUNG CA CONSULT - LUNG S/P [facility] NSTEMI 06/28/23 [facility] CATH SOLITARY PULMONARY [...] NEW LUNG CA CONSULT - LUNG S/P [facility] NSTEMI 06/28/23 [facility] CATH NSTEMI CHEMO [...] lung Chief Complaint NSTEMI, COVID 19, AC ATKA ENCEPHALOPATHY NSTEMI, COVID 19, ACUTE ENCEPHALOPATHY NSTEMI, COVID 19, ACUTE ENCEPHALOPATHY NSTEMI, COVID 19, ACUTE ENCEPHALOPATHY NSTEMI, COVID 19, ACUTE ENCEPHALOPATHY EST PT - NEW LUNG CA CONSULT - LUNG S/P [facility] NSTEMI 06/28/23 [facility] CATH NSTEMI CHEMO [...] 09, 2024 9:39am Encounter for chemotherapy management 2023 9:39am Hypomagnesemia August 09, 2024 9:39am Localized swelling of both lower legs cember 2023 9:39am B12 deficiency anemia August 09 9:39am Essential (primary) hypertension August 31, 2024 8:03am History of coronary artery stent placeme nt August 31, 2024 8:03am Claudication August 31, 2024 8 :03am Cancer of upper lobe of left lung Januar y 2024 2:02pm Cancer of upper lobe of left lung 2024 7:26am Encounter for antineoplastic immunothera py September 21, 2024 7:26am Cancer of upper lobe of left lung ua 2024 9:43am Cancer of upper lobe of [...] Cancer of upper lobe of left lung Augua y 2024 2:02pm Cancer of upper lobe of left lung ua 2024 7:26am Encounter for antineoplastic immunothera py September 21, 2024 7:26am Cancer of upper lobe of left lung ua 2024 9:43am Cancer of upper lobe of [...] to lung March 15, 2025 10:4 0am Chief Complaint Admit Date 3 WKS - [...] LABS - [facility] March 15, 2025 10:40am Malignant neoplasm of upper lobe, left b ronchus or March 28, 2025 7:38am SHORT DISTANCE CLAUDICATION April 05, 2025 6:40am 3 WKS - LABS - [place] - REVIEW SCANS A ugust 2024 10:06am MED ONC April 05, 2025 10 :30am 1 Y FU April 05, 2025 10 :45am Reason for Visit Admit Date Cancer of upper lobe of left lung December 14, 2024 9:43am Cancer of upper lobe of left lung January 042024 12:19pm Cancer of upper lobe of left lung January 162024 12:36pm Hypothyroidism January 25, 2025 12:3 6pm Metastasis to lung January 25, 2025 12:3 6pm Dizziness on standing February 22, 2025 10: 09am Encounter for antineoplastic immunothera py February 22, 2025 10:09am Cancer of upper lobe of left lung February 222024 10:09am Hypothyroidism February 22, 2025 10:09 am Metastasis to lung February 22, 2025 10:09 am Claudication March 08, 2025 10:0 2am Encounter for antineoplastic immunothera py March 15, 2025 10:40am Cancer of upper lobe of left lung February 162024 10:40am Hypothyroidism March 15, 2025 10:4 0am Metastasis to lung March 15, 2025 10:4 0am Cancer of upper lobe of left lung April 05, 2025 10:06am Hypothyroidism April 05, 2025 10 :06am Metastasis to lung April 05, 2025 10 :06am Claudication April 05, 2025 10 :45am Essential (primary) hypertension April 05, 2025 10:45am History of coronary artery stent placeme nt April 05, 2025 10:45am Chief Complaint Admit Date 3 WKS - LABS - [place] January 04, 2025 1 2:19pm 3 WKS - LABS - [place] January 25, 2025 12:36pm 3 WKS - LABS - [place] February 22, 2025 1 0:09am 4 M FU March 08, 2025 10:0 2am 3 WKS - LABS - [place] March 15, 2025 10:40am Malignant neoplasm of upper lobe, left b ronchus or March 28, 2025 7:38am SHORT DISTANCE CLAUDICATION April 05, 2025 6:40am 3 WKS - LABS - [place] - REVIEW SCANS A ugust 2024 10:06am 1 Y FU April 05, 2025 10 :45am 3 WKS - LABS - [place] April 26, 2 025 9:33am MED ONC April 26, 2025 9:45am Reason for Visit Admit Date Cancer of upper lobe of left lung January 042024 12:19pm Cancer of upper lobe of left lung January 162024 12:36pm Hypothyroidism January 25, 2025 12:3 6pm Metastasis to lung January 25, 2025 12:3 6pm Dizziness on standing February 22, 2025 10: 09am Encounter for antineoplastic immunothera py February 22, 2025 10:09am Cancer of upper lobe of left lung February 222024 10:09am Hypothyroidism February 22, 2025 10:09 am Metastasis to lung February 22, 2025 10:09 am Claudication March 08, 2025 10:0 2am Encounter for antineoplastic immunothera py March 15, 2025 10:40am Cancer of upper lobe of left lung February 162024 10:40am Hypothyroidism March 15, 2025 10:4 0am Metastasis to lung March 15, 2025 10:4 0am Cancer of upper lobe of left lung April 05, 2025 10:06am Hypothyroidism April 05, 2025 10 :06am Metastasis to lung April 05, 2025 10 :06am Claudication April 05, 2025 10 :45am Essential (primary) hypertension April 05, 2025 10:45am History of coronary artery stent placeme nt April 05, 2025 10:45am Chief Complaint Admit Date 3 WKS - LABS - [place] January 25, 2025 12:36pm 3 WKS - LABS - [place] February 22, 2025 1 0:09am 4 M FU March 08, 2025 10:0 2am 3 WKS - LABS - [place] March 15, 2025 10:40am Malignant neoplasm of upper lobe, left b ronchus or March 28, 2025 7:38am SHORT DISTANCE CLAUDICATION April 05, 2025 6:40am 3 WKS - LABS - [place] - REVIEW SCANS A ugust 2024 10:06am 1 Y FU April 05, 2025 10 :45am 3 WKS - LABS - [place] April 26, 2 025 9:33am MED ONC April 26, 2025 9:45am Reason for Visit Admit Date Cancer of upper lobe of left lung January 162024 12:36pm Hypothyroidism January 25, 2025 12:3 6pm Metastasis to lung January 25, 2025 12:3 6pm Dizziness on standing February 22, 2025 10: 09am Encounter for antineoplastic immunothera py February 22, 2025 10:09am Cancer of upper lobe of left lung February 222024 10:09am Hypothyroidism February 22, 2025 10:09 am Metastasis to lung February 22, 2025 10:09 am Claudication March 08, 2025 10:0 2am Encounter for antineoplastic immunothera py March 15, 2025 10:40am Cancer of upper lobe of left lung February 162024 10:40am Hypothyroidism March 15, 2025 10:4 0am Metastasis to lung March 15, 2025 10:4 0am Cancer of upper lobe of left lung April 05, 2025 10:06am Hypothyroidism April 05, 2025 10 :06am Metastasis to lung April 05, 2025 10 :06am Claudication April 05, 2025 10 :45am Essential (primary) hypertension April 05, 2025 10:45am History of coronary artery stent placeme nt April 05, 2025 10:45am Cancer of upper lobe of left lung Septem richard 2024 9:33am Hypothyroidism April 26, 2025 9:33am Metastasis to lung April 26, 2025 9:33am Chief Complaint Admit Date 3 WKS - LABS - [place] January 25, 2025 12:36pm 3 WKS - LABS - [place] February 22, 2025 1 0:09am 4 M FU March 08, 2025 10:0 2am 3 WKS - LABS - [place] March 15, 2025 10:40am Malignant neoplasm of upper lobe, left b ronchus or March 28, 2025 7:38am SHORT DISTANCE CLAUDICATION April 05, 2025 6:40am 3 WKS - LABS - [place] - REVIEW SCANS A ugust 2024 10:06am 1 Y FU April 05, 2025 10 :45am 3 WKS - LABS - [place] April 26, 2 025 9:33am 3 WKS - LABS - [place]/B12 May 172024 12:06pm MED ONC May 17, 2025 12:15pm Reason for Visit Admit Date Cancer of upper lobe of left lung January 162024 12:36pm Hypothyroidism January 25, 2025 12:3 6pm Metastasis to lung January 25, 2025 12:3 6pm Dizziness on standing February 22, 2025 10: 09am Encounter for antineoplastic immunothera py February 22, 2025 10:09am Cancer of upper lobe of left lung February 222024 10:09am Hypothyroidism February 22, 2025 10:09 am Metastasis to lung February 22, 2025 10:09 am Claudication March 08, 2025 10:0 2am Encounter for antineoplastic immunothera py March 15, 2025 10:40am Cancer of upper lobe of left lung February 162024 10:40am Hypothyroidism March 15, 2025 10:4 0am Metastasis to lung March 15, 2025 10:4 0am Cancer of upper lobe of left lung April 05, 2025 10:06am Hypothyroidism April 05, 2025 10 :06am Metastasis to lung April 05, 2025 10 :06am Claudication April 05, 2025 10 :45am Essential (primary) hypertension April 05, 2025 10:45am History of coronary artery stent placeme nt April 05, 2025 10:45am Cancer of upper lobe of left lung Septem 2024 9:33am Hypothyroidism April 26, 2025 9:33am Metastasis to lung April 26, 2025 9:33am Cancer of upper lobe of left lung Septem 2024 12:06pm Hypothyroidism May 17, 2025 12:06pm Metastasis to lung May 17, 2025 12:06pm Chief Complaint Admit Date 3 WKS - LABS - [place] February 22, 2025 1 0:09am 4 M FU March 08, 2025 10:0 2am 3 WKS - LABS - [place] March 15, 2025 10:40am Malignant neoplasm of upper lobe, left b ronchus or March 28, 2025 7:38am SHORT DISTANCE CLAUDICATION April 05, 2025 6:40am 3 WKS - LABS - [place] - REVIEW SCANS A ugust 2024 10:06am 1 Y FU April 05, 2025 10 :45am 3 WKS - LABS - [place] April 26, 2 025 9:33am 3 WKS - LABS - [place]/B12 May 172024 12:06pm Discuss Results June 01, 2025 2 :11pm 3 WKS - LABS - [place]/B12 May 9:39am MED ONC June 07, 2025 1 0:00am LFT LEG PAIN June 10, 2025 9 :48am Reason for Visit Admit Date Dizziness on standing February 22, 2025 10: 09am Encounter for antineoplastic immunothera py February 22, 2025 10:09am Cancer of upper lobe of left lung February 222024 10:09am Hypothyroidism February 22, 2025 10:09 am Metastasis to lung February 22, 2025 10:09 am Claudication March 08, 2025 10:0 2am Encounter for antineoplastic immunothera py March 15, 2025 10:40am Cancer of upper lobe of left lung February 162024 10:40am Hypothyroidism March 15, 2025 10:4 0am Metastasis to lung March 15, 2025 10:4 0am Cancer of upper lobe of left lung April 05, 2025 10:06am Hypothyroidism April 05, 2025 10 :06am Metastasis to lung April 05, 2025 10 :06am Claudication April 05, 2025 10 :45am Essential (primary) hypertension April 05, 2025 10:45am History of coronary artery stent placeme nt April 05, 2025 10:45am Cancer of upper lobe of left lung Septem 2024 9:33am Hypothyroidism April 26, 2025 9:33am Metastasis to lung April 26, 2025 9:33am Cancer of upper lobe of left lung Septem 2024 12:06pm Hypothyroidism May 17, 2025 12:06pm Metastasis to lung May 17, 2025 12:06pm Varicose veins of left lower extremity w ith pain June 01, 2025 2:11pm Cancer of upper lobe of left lung Octobe r 2024 9:39am Hypothyroidism June 07, 2025 9 :39am Metastasis to lung June 07, 2025 9 :39am Chief Complaint Admit Date 4 M FU March 08, 2025 10:0 2am 3 WKS - LABS - [place] March 15, 2025 10:40am Malignant neoplasm of upper lobe, left b ronchus or March 28, 2025 7:38am SHORT DISTANCE CLAUDICATION April 05, 2025 6:40am 3 WKS - LABS - [place] - REVIEW SCANS A ug2024 10:06am 1 Y FU April 05, 2025 10 :45am 3 WKS - LABS - [place] April 26, 2 025 9:33am 3 WKS - LABS - [place]/B12 May 172024 12:06pm Discuss Results June 01, 2025 2 :11pm 3 WKS - LABS - [place]/B12 May 9:39am MED ONC June 07, 2025 1 0:00am LFT LEG PAIN June 10, 2025 9 :48am bronchitis June 22, 2025 9 :10am Reason for Visit Admit Date Claudication March 08, 2025 10:0 2am Encounter for antineoplastic immunothera py March 15, 2025 10:40am Cancer of upper lobe of left lung February 162024 10:40am Hypothyroidism March 15, 2025 10:4 0am Metastasis to lung March 15, 2025 10:4 0am Cancer of upper lobe of left lung April 05, 2025 10:06am Hypothyroidism April 05, 2025 10 :06am Metastasis to lung April 05, 2025 10 :06am Claudication April 05, 2025 10 :45am Essential (primary) hypertension April 05, 2025 10:45am History of coronary artery stent placeme nt April 05, 2025 10:45am Cancer of upper lobe of left lung Septem 2024 9:33am Hypothyroidism April 26, 2025 9:33am Metastasis to lung April 26, 2025 9:33am Cancer of upper lobe of left lung Septem 2024 12:06pm Hypothyroidism May 17, 2025 12:06pm Metastasis to lung May 17, 2025 12:06pm Varicose veins of left lower extremity w ith pain June 01, 2025 2:11pm Cancer of upper lobe of left lung Octobe r 2024 9:39am Hypothyroidism June 07, 2025 9 :39am Metastasis to lung June 07, 2025 9 :39am Medications Administered Section Inactive Administered Medications - [...] section and content) DATE CREATED AUTHOR 10/27/2019 [facility] DATE CREATED AUTHOR AUTHOR'S ORGANIZ ATION 05/24/2022 [facility] DATE CREATED AUTHOR AUTHOR'S ORGANIZ ATION 05/26/2023 [facility] DATE CREATED AUTHOR AUTHOR'S ORGANIZ ATION 07/12/2023 [facility] DATE CREATED AUTHOR AUTHOR'S ORGANIZ ATION 06/29/2025 [facility] Source Comments (unrecognize d section and content) In the event this informatio n is protected by the Federal Confidentiality of Alcohol and Drug Abuse Patient Records regulations: The Federal rules restrict any use of the information to criminally investigate or prosecute any alcohol or drug abuse patient.[facility] the event this information is protected by the Federal Confidentiality of Alcohol and Drug Abuse Patient Records regulations: The Federal rules restrict any use of the information to criminally investigate or prosecute any alcohol or drug abuse patient.[facility] the event this information is protected by the Federal Confidentiality of Alcohol and Drug Abuse Patient Records regulations: The Federal rules restrict any use of the information to criminally investigate or prosecute any alcohol or drug abuse patient.[facility] the event this information is protected by the Federal Confidentiality of Alcohol and Drug Abuse Patient Records regulations: The Federal rules restrict any use of the information to criminally investigate or prosecute any alcohol or drug abuse patient.[facility] the event this information is protected by the Federal Confidentiality of Alcohol and Drug Abuse Patient Records regulations: The Federal rules restrict any use of the information to criminally investigate or prosecute any alcohol or drug abuse patient.[facility] the event this information is protected by the Federal Confidentiality of Alcohol and Drug Abuse Patient Records regulations: The Federal rules restrict any use of the information to criminally investigate or prosecute any alcohol or drug abuse patient.[facility] the event this information is protected by the Federal Confidentiality of Alcohol and Drug Abuse Patient Records regulations: The Federal rules restrict any use of the information to criminally investigate or prosecute any alcohol or drug abuse patient.[facility] the event this information is protected by the Federal Confidentiality of Alcohol and Drug Abuse Patient Records regulations: The Federal rules restrict any use of the information to criminally investigate or prosecute any alcohol or drug abuse patient.[facility] the event this information is protected by the Federal Confidentiality of Alcohol and Drug Abuse Patient Records regulations: The Federal rules restrict any use of the information to criminally investigate or prosecute any alcohol or drug abuse patient.[facility] the event this information is protected by the Federal Confidentiality of Alcohol and Drug Abuse Patient Records regulations: The Federal rules restrict any use of the information to criminally investigate or prosecute any alcohol or drug abuse patient.[facility] the event this information is protected by the Federal Confidentiality of Alcohol and Drug Abuse Patient Records regulations: The Federal rules restrict any use of the information to criminally investigate or prosecute any alcohol or drug abuse patient.[facility] Hospital[facility] the event this information is protected by the Federal Confidentiality of Alcohol and Drug Abuse Patient Records regulations: The Federal rules restrict any use of the information to criminally investigate or prosecute any alcohol or drug abuse patient.[facility] Hospital[facility] the event this information is protected by the Federal Confidentiality of Alcohol and Drug Abuse Patient Records regulations: The Federal rules restrict any use of the information to criminally investigate or prosecute any alcohol or drug abuse patient.[facility] Hospital[facility] the event this information is protected by the Federal Confidentiality of Alcohol and Drug Abuse Patient Records regulations: The Federal rules restrict any use of the information to criminally investigate or prosecute any alcohol or drug abuse patient.[facility] Hospital[facility] the event this information is protected by the Federal Confidentiality of Alcohol and Drug Abuse Patient Records regulations: The Federal rules restrict any use of the information to criminally investigate or prosecute any alcohol or drug abuse patient.[facility] HospitalIn the event this information is protected by the Federal Confidentiality of Alcohol and Drug Abuse Patient Records regulations: The Federal rules restrict any use of the information to criminally investigate or prosecute any alcohol or drug abuse patient.[facility] Hospital[facility] the event this information is protected by the Federal Confidentiality of Alcohol and Drug Abuse Patient Records regulations: The Federal rules restrict any use of the information to criminally investigate or prosecute any alcohol or drug abuse patient.[facility] Care Teams (unrecognized sec tion and content) School Community Relations Coordinator Relationship Specialty Start Date End Date Sharif Christianson [address] [place] [address] PCP - General Family Practice 10/21/19 School Community Relations Coordinator Relationship Specialty Start Date End Date Sharif Christianson [address] [place] [address] PCP - General Family Practice 10/21/19 [employer] Community Relations Coordinator Relationship Specialty Start Date End Date Sharif Christianson [address] [place] [address] PCP - General Family Practice 10/21/19 School Community Relations Coordinator Relationship Specialty Start Date End Date Sharif Christianson [address] [place] [address] PCP - General Family Practice 10/21/19 School Community Relations Coordinator Relationship Specialty Start Date End Date Sharif Christianson [address] [place] [address] PCP - General Family Practice 10/21/19 Ryan, Alamo S [address] [place] [address] Cardiology 01/17/22 School Community Relations Coordinator Relationship Specialty Start Date End Date Sharif Christianson [address] [facility] [address] [place] [address] PCP - General Family Practice 10/21/19 Ryan, Alamo S [address] [place] [address] Cardiology 01/17/22 School Community Relations Coordinator Relationship Specialty Start Date End Date Sharif Christianson [address] [facility] [address] [place] [address] PCP - General Family Practice 10/21/19 Ryan, Alamo S [address] [place] [address] Cardiology 01/17/22 School Community Relations Coordinator Relationship Specialty Start Date End Date Sharif Christianson [address] [facility] [address] [place] [address] PCP - General Family Practice 10/21/19 Ryan, Al[place] S [address] [place] [address] Cardiology 01/17/22 School Community Relations Coordinator Relationship Specialty Start Date End Date Sharif Christianson [address] [facility] [address] [place] [address] PCP - General Family Practice 10/21/19 Ryan, Eder S [address] [place] [address] Cardiology 01/17/22 School Community Relations Coordinator Relationship Specialty Start Date End Date Sharif Christianson [address] [place] [address] PCP - General Family Practice 10/21/19 Ryan, Al[place] S [address] [place] [address] Cardiology 01/17/22 School Community Relations Coordinator Relationship Specialty Start Date End Date Sharif Christianson [address] [place] [address] PCP - General Family Practice 10/21/19 Ryan, Alamo S [address] [place] [address] Cardiology 01/17/22 School Community Relations Coordinator Relationship Specialty Start Date End Date Sharif Christianson [address] [place] [address] PCP - General Family Practice 10/21/19 Ryan, Alamo S [address] [place] [address] Cardiology 01/17/22 School Community Relations Coordinator Relationship Specialty Start Date End Date Sharif Christianson [address] [place] [address] PCP - General Family Practice 10/21/19 Ryan, Eder S [address] [place] [address] Cardiology 01/17/22 School Community Relations Coordinator Relationship Specialty Start Date End Date Sharif Christianson [address] [place] [address] PCP - General Family Practice 10/21/19 Ryan, Eder S [address] [place] [address] Cardiology 01/17/22 School Community Relations Coordinator Relationship Specialty Start Date End Date Anderskellyjosh Sharif Reyes [address] [place] [address] PCP - General Family Medicine 10/21/19 Ryan, Alamo S [address] [place] [address] Cardiology 01/17/22 School Community Relations Coordinator Relationship Specialty Start Date End Date Anderspower Sharif Reyes [address] [place] [address] PCP - General Family Medicine 10/21/19 Ryan, Alamo S [address] [place] [address] Cardiology 01/17/22 School Community Relations Coordinator Relationship Specialty Start Date End Date Anderspower Sharif Reyes [address] [place] [address] PCP - General Family Medicine 10/21/19 Ryan, Eder S [address] [place] [address] Cardiology 01/17/22 Team Status: Active Member Role Status Dates No Primary Care Physician Family Provider Active LANEY Ma Primary Care Provider Active Team Status: Inactive Member Role Status Dates Dr. Sharif Christianson MD Primary Care Provider, Referr ing Provider Active Dr. Shannan Waldrop MD Attending Provider Active Team Status: Inactive Member Role Status Dates Dr. Sharif Christianson MD Primary Care Provider, Referr ing Provider Active Ivonne Mendoza PA, PA Attending Provider Active Team Status: Active Member Role Status Dates Iris Barkman , COUNTER TACKER-C Primary Care Provider Active Dr. Dave Rossi MD Attending Provider Active Team Status: Active Member Role Status Dates Dr. Sharif Christianson MD Primary Care Provider Active Dr. Shannan Waldrop MD Attending Provider, Referrin g Provider Active Team Status: Inactive Member Role Status Dates Dr. Sharif Christianson MD Primary Care Provider Active Iris Clayton NP-C Attending Provider Active Team Status: Inactive Member Role Status Dates Dr. Sharif Christianson MD Primary Care Provider Active Iris Clayton NP-C Attending Provider, Referring Pr ovider Active Team Status: Inactive Member Role Status Dates Iris Clayton NP-C Primary Care Provider Active Ivonne Mendoza PA, PA Attending Provider, Referr ing Provider Active Team Status: Active Member Role Status Dates Iris Clayton NP-C Primary Care Provider Active Dr. Dave Rossi MD Attending Provider Active Ivonne Mendoza PA, PA Referring Provider Active Team Status: Inactive Member Role Status Dates Iris Clayton NP-C Primary Care Provider Active Dr. Bernabe Kingston MD Attending Provider, Referring Provider Active Team Status: Inactive Member Role Status Dates Iris Clayton NP-Rupal Primary Care Provi catina, Attending Provider, Referring Provider Active Team Status: Inactive Member Role Status Dates Dr. Shannan Waldrop MD Attending Provider Active Iris Clayton NP-Rupal Primary Care Provider, Referring Provider Active Team Status: Inactive Member Role Status Alisa Clayton NP-C Primary Care Provider Active Dr. Shannan Waldrop [...] Active Dr. Nic Caraballo MD Admit Provider, Attending Pro vider Active [...] Primary Care Provider Active Dr. Williams Nye , Emergency Provider Active Dr. Nic Caraballo MD Admit Provider, Other Provide r Active Dr. Gwendolyn Petersen MD Other Provider Active Dr. Gena Johnsno MD Attending Provider , Referring Provider, Other Provider Active Team Status: Inactive Member Role Status Alisa Clayton NP-C Primary Care Provider, Referring Provider Active Dr. Shannan Waldrop MD Attending Provider Active Team Status: Inactive Member Role Status Alisa Clayton NP-C Primary Care Provider, Referring Provider Active Dr. Brennen Roth DO Attending Provider Active Team Status: Inactive Member Role Status Alisa Clayton NP-C Primary Care Provider, Referring Provider Active Sharif Nieto COUNTER TACKER, COUNTER TACKER-C Attending Provider Active Team Status: Inactive Member Role Status Dates Dr. Sharif Christianson MD Primary Care Provider, Referr ing Provider Active Sabi Lynn COUNTER TACKER, COUNTER TACKER-C Attending Provider Active Team Status: Active Member Role Status Dates Dr. Sharif Christianson MD Primary Care Provider Active Dr. Brennen Roth DO Attending Provider, Referring P ravi Active Team Status: Inactive Member Role Status Dates Dr. Sharif Christiasnon MD Primary Care Provider, Referr ing Provider [...] Provider Active Dr. Isreal Carvalho MD Attending Provider, Referr ing Provider Active [...] 2024 End: August 09, 2024 Sabi Lynn COUNTER TACKER, COUNTER TACKER-C Attending Provider Active Start: August 09, 2024 [...] 2024 End: September 21, 2024 Sabi Lynn COUNTER TACKER, COUNTER TACKER-C Attending Provider Active Start: September 21, 2024 [...] 2024 End: November 02, 2024 Sabi Lynn COUNTER TACKER, COUNTER TACKER-C Attending Provider Active Start: November 02, 2024 [...] 2024 End: November 23, 2024 Sabi Lynn COUNTER TACKER, COUNTER TACKER-C Attending Provider Active Start: November 23, 2024 [...] 2024 End: November 30, 2024 Sabi Leah COUNTER TACKER, COUNTER TACKER-C Attending Provider Active Start: November 30, 2024 End: November 30, 2024 Sabi Lynn COUNTER TACKER, COUNTER TACKER-C Referring Provider Active Start: November 30, 2024 [...] Status: Active Member Role/Relationship Status Dates Dr. Shraif Christianson MD Primary Care Provider Active Team Status: Inactive Member Role/Relationship Status Dates Dr. Sharif Christianson MD Primary Care Provider Active Start: November 02, 2024 End: November 02, 2024 Dr. Sharif Christianson MD Referring Provider Active Start: November 02, 2024 End: November 02, 2024 Sabi Lynn COUNTER TACKER, COUNTER TACKER-C Attending Provider Active Start: November 02, 2024 [...] 2024 End: November 23, 2024 Sabi Lynn COUNTER TACKER, COUNTER TACKER-C Attending Provider Active Start: November 23, 2024 End: November 23, 2024 Team Status: Inactive Member Role/Relationship Status Dates Dr. Sharif Christianson MD Primary Care Provider Active Start: November 30, 2024 End: November 30, 2024 Sabi Lynn COUNTER TACKER, COUNTER TACKER-C Attending Provider Active Start: November 30, 2024 End: November 30, 2024 Sabi Lynn COUNTER TACKER, COUNTER TACKER-C Referring Provider Active Start: November 30, 2024 [...] 2025 End: February 22, 2025 Sabi Lynn COUNTER TACKER, COUNTER TACKER-C Attending Provider Active Start: February 22, 2025 [...] 2024 End: November 23, 2024 Sabi Lynn COUNTER TACKER, COUNTER TACKER-C Attending Provider Active Start: November 23, 2024 End: November 23, 2024 Team Status: Inactive Member Role/Relationship Status Dates Dr. Sharif Christianson MD Primary Care Provider Active Start: November 30, 2024 End: November 30, 2024 Sabi Lynn COUNTER TACKER, COUNTER TACKER-C Attending Provider Active Start: November 30, 2024 End: November 30, 2024 Sabi Lynn COUNTER TACKER, COUNTER TACKER-C Referring Provider Active Start: November 30, 2024 [...] 2025 End: February 22, 2025 Sabi Lynn COUNTER TACKER, COUNTER TACKER-C Attending Provider Active Start: February 22, 2025 [...] 2024 End: November 23, 2024 Sabi Lynn COUNTER TACKER, COUNTER TACKER-C Attending Provider Active Start: November 23, 2024 End: November 23, 2024 Team Status: Inactive Member Role/Relationship Status Dates Dr. Sharif Christianson MD Primary Care Provider Active Start: November 30, 2024 End: November 30, 2024 Sabi Lynn COUNTER TACKER, COUNTER TACKER-C Attending Provider Active Start: November 30, 2024 End: November 30, 2024 Sabi Lynn COUNTER TACKER, COUNTER TACKER-C Referring Provider Active Start: November 30, 2024 [...] 2025 End: February 22, 2025 Sabi Lynn COUNTER TACKER, COUNTER TACKER-C Attending Provider Active Start: February 22, 2025 [...] 2025 End: February 22, 2025 Sabi Lynn NP, COUNTER TACKER-C Attending Provider Active Start: February 22, 2025 [...] March 28, 2025 End: March 28, 2025 Team Status: Inactive Member Role/Relationship Status Dates Dr. Sharif Christianson MD Primary Care Provider Active Start: March 28, 2025 End: March 28, 2025 Dr. Shannan Waldrop MD Attending Provider Active Start: March 28, 2025 End: March 28, 2025 Dr. Shannan Waldrop MD Referring Provider Active Start: March 28, 2025 End: March 28, 2025 Team Status: Active Member Role/Relationship Status Dates Dr. Sharif Christianson MD Primary Care Provider Active Start: April 05, 2025 DENISE Miranda Attending Provider Active Star t: April 05, 2025 DENISE Miranda Referring Provider Active Star t: April 05, 2025 Team Status: Active Member Role/Relationship Status Dates Dr. Sharif Christianson MD Primary Care Provider Active Start: April 05, 2025 Dr. Shannan Waldrop MD Attending Provider Active Start: April 05, 2025 Team Status: Active Member Role/Relationship Status Dates Dr. Sharif Christianson MD Primary Care Provider Active Start: April 05, 2025 Dr. Shannan Waldrop MD Attending Provider Active Start: April 05, 2025 Dr. Shannan Waldrop MD Referring Provider Active Start: April 05, 2025 Dr. Pinky Winter MD Other Provider Active Start: April 05, 2025 Team Status: Inactive Member Role/Relationship Status Dates Dr. Sharif Christianson MD Primary Care Provider Active Start: April 05, 2025 End: April 05, 2025 Dr. Sharif Christianson MD Referring Provider Active Start: April 05, 2025 End: April 05, 2025 Dr. Eder Davis MD Attending Provider Active S tart: April 05, 2025 End: April 05, 2025 Team Status: Inactive Member Role/Relationship Status Dates Dr. Sharif Christianson MD Primary Care Provider Active Start: April 05, 2025 End: April 05, 2025 Dr. Sharif Christianson MD Referring Provider Active Start: April 05, 2025 End: April 05, 2025 Dr. Shannan Waldrop MD Attending Provider Active Start: April 05, 2025 End: April 05, 2025 Team Status: Inactive Member Role/Relationship Status Dates Dr. Sharif Christianson MD Primary Care Provider Active Start: April 05, 2025 End: April 05, 2025 DENISE Miranda Attending Provider Active Star t: April 05, 2025 End: April 05, 2025 DENISE Miranda Referring Provider Active Star t: April 05, 2025 End: April 05, 2025 Team Status: Inactive Member Role/Relationship Status [...] 2025 End: February 22, 2025 Sabi Lynn COUNTER TACKER, COUNTER TACKER-C Attending Provider Active Start: February 22, 2025 [...] 2025 End: March 15, 2025 Team Status: Inactive Member Role/Relationship Status Dates Dr. Sharif Christianson MD Primary Care Provider Active Start: March 28, 2025 End: March 28, 2025 Dr. Shannan Waldrop MD Attending Provider Active Start: March 28, 2025 End: March 28, 2025 Dr. Shannan Waldrop MD Referring Provider Active Start: March 28, 2025 End: March 28, 2025 Team Status: Inactive Member Role/Relationship Status Dates Dr. Sharif Christianson MD Primary Care Provider Active Start: April 05, 2025 End: April 05, 2025 DENISE Miranda Attending Provider Active Star t: April 05, 2025 End: April 05, 2025 DENISE Miranda Referring Provider Active Star t: April 05, 2025 End: April 05, 2025 Team Status: Inactive Member Role/Relationship Status Dates Dr. Sharif Christianson MD Primary Care Provider Active Start: April 05, 2025 End: April 05, 2025 Dr. Sharif Christianson MD Referring Provider Active Start: April 05, 2025 End: April 05, 2025 Dr. Shannan Waldrop MD Attending Provider Active Start: April 05, 2025 End: April 05, 2025 Team Status: Inactive Member Role/Relationship Status Dates Dr. Sharif Christianson MD Primary Care Provider Active Start: April 05, 2025 End: April 05, 2025 Dr. Sharif Christianson MD Referring Provider Active Start: April 05, 2025 End: April 05, 2025 Dr. Eder Davis MD Attending Provider Active S tart: April 05, 2025 End: April 05, 2025 Team Status: Active Member Role/Relationship Status Dates Dr. Sharif Christianson MD Primary Care Provider Active Start: April 21, 2025 Dr. Sharif Christianson MD Attending Provider Active Start: April 21, 2025 Team Status: Inactive Member Role/Relationship Status Dates Dr. Sharif Christianson MD Primary Care Provider Active Start: April 26, 2025 End: April 26, 2025 Dr. Sharif Christianson MD Referring Provider Active Start: April 26, 2025 End: April 26, 2025 Dr. Shannan Waldrop MD Attending Provider Active Start: April 26, 2025 End: April 26, 2025 Team Status: Active Member Role/Relationship Status Dates Dr. Sharif Christianson MD Primary Care Provider Active Start: April 26, 2025 Dr. Shannan Waldrop MD Attending Provider Active Start: April 26, 2025 Dr. Shannan Waldrop MD Referring Provider Active Start: April 26, 2025 Dr. Pinky Winter MD Other Provider Active Start: April 26, 2025 Team Status: Active Member Role/Relationship Status Dates Dr. Sharif Christianson MD Primary care physician Active Team Status: Inactive Member Role/Relationship Status Dates Dr. Sharif Christianson MD Primary care physician Active Start: January 20, 2025 End: January 20, 2025 Dr. Sharif Christianson MD Attending physician Active Start: January 20, 2025 End: January 20, 2025 Dr. Sharif Christianson MD Referring Provider Active Start: January 20, 2025 End: January 20, 2025 Team Status: Inactive Member Role/Relationship Status Dates Dr. Sharif Christianson MD Primary care physician Active Start: January 25, 2025 End: January 25, 2025 Dr. Sharif Christianson MD Referring Provider Active Start: January 25, 2025 End: January 25, 2025 Dr. Shannan Waldrop MD Attending physician Active Start: January 25, 2025 End: January 25, 2025 Team Status: Inactive Member Role/Relationship Status Dates Dr. Sharif Christianson MD Primary care physician Active Start: February 22, 2025 End: February 22, 2025 Dr. Sharif Christianson MD Referring Provider Active Start: February 22, 2025 End: February 22, 2025 Sabi Lynn COUNTER TACKER, COUNTER TACKER-C Attending physician Active Start: February 22, 2025 End: February 22, 2025 Team Status: Inactive Member Role/Relationship Status Dates Dr. Sharif Christianson MD Primary care physician Active Start: March 08, 2025 End: March 08, 2025 Dr. Sharif Christianson MD Referring Provider Active Start: March 08, 2025 End: March 08, 2025 DENISE Miranda Attending physician Active Sta rt: March 08, 2025 End: March 08, 2025 Team Status: Inactive Member Role/Relationship Status Dates Dr. Sharif Christianson MD Primary care physician Active Start: March 08, 2025 End: March 08, 2025 DENISE Miranda Attending physician Active Sta rt: March 08, 2025 End: March 08, 2025 DENISE Miranda Referring Provider Active Star t: March 08, 2025 End: March 08, 2025 Team Status: Inactive Member Role/Relationship Status Dates Dr. Sharif Christianson MD Primary care physician Active Start: March 15, 2025 End: March 15, 2025 Dr. Sharif Christianson MD Referring Provider Active Start: March 15, 2025 End: March 15, 2025 Dr. Nic Hall MD Attending physician Active Start: March 15, 2025 End: March 15, 2025 Team Status: Inactive Member Role/Relationship Status Dates Dr. Sharif Christianson MD Primary care physician Active Start: March 28, 2025 End: March 28, 2025 Dr. Shannan Waldrop MD Attending physician Active Start: March 28, 2025 End: March 28, 2025 Dr. Shannan Waldrop MD Referring Provider Active Start: March 28, 2025 End: March 28, 2025 Team Status: Inactive Member Role/Relationship Status Dates Dr. Sharif Christianson MD Primary care physician Active Start: April 05, 2025 End: April 05, 2025 DENISE Miranda Attending physician Active Sta rt: April 05, 2025 End: April 05, 2025 DENISE Miranda Referring Provider Active Star t: April 05, 2025 End: April 05, 2025 Team Status: Inactive Member Role/Relationship Status Dates Dr. Sharif Christianson MD Primary care physician Active Start: April 05, 2025 End: April 05, 2025 Dr. Sharif Christianson MD Referring Provider Active Start: April 05, 2025 End: April 05, 2025 Dr. Shnanan Waldrop MD Attending physician Active Start: April 05, 2025 End: April 05, 2025 Team Status: Inactive Member Role/Relationship Status Dates Dr. Sharif Christianson MD Primary care physician Active Start: April 05, 2025 End: April 05, 2025 Dr. Sharif Christianson MD Referring Provider Active Start: April 05, 2025 End: April 05, 2025 Dr. Eder Davis MD Attending physician Active Start: April 05, 2025 End: April 05, 2025 Team Status: Inactive Member Role/Relationship Status Dates Dr. Sharif Christianson MD Primary care physician Active Start: April 21, 2025 End: April 21, 2025 Dr. Sharif Christianson MD Attending physician Active Start: April 21, 2025 End: April 21, 2025 Team Status: Inactive Member Role/Relationship Status Dates Dr. Sharif Christianson MD Primary care physician Active Start: April 26, 2025 End: April 26, 2025 Dr. Sharif Christianson MD Referring Provider Active Start: April 26, 2025 End: April 26, 2025 Dr. Shannan Waldrop MD Attending physician Active Start: April 26, 2025 End: April 26, 2025 Team Status: Active Member Role/Relationship Status Dates Dr. Sharif Christianson MD Primary care physician Active Start: April 26, 2025 Dr. Shannan Waldrop MD Attending physician Active Start: April 26, 2025 Dr. Shannan Waldrop MD Referring Provider Active Start: April 26, 2025 Dr. Pinky Winter MD Nurse Practitioner Active Start: April 26, 2025 Team Status: Inactive Member Role/Relationship Status Dates Dr. Sharif Christianson MD Primary care physician Active Start: May 17, 2025 End: May 17, 2025 Dr. Sharif Christianson MD Referring Provider Active Start: May 17, 2025 End: May 17, 2025 Dr. Shannan Waldrop MD Attending physician Active Start: May 17, 2025 End: May 17, 2025 Team Status: Active Member Role/Relationship Status Dates Dr. Sharif Christianson MD Primary care physician Active Start: May 17, 2025 Dr. Shannan Waldrop MD Attending physician Active Start: May 17, 2025 Dr. Shannan Waldrop MD Referring Provider Active Start: May 17, 2025 Dr. Pinky Winter MD Nurse Practitioner Active Start: May 17, 2025 Team Status: Inactive Member Role/Relationship Status Dates Dr. Sharif Christianson MD Primary care physician Active Start: February 22, 2025 End: February 22, 2025 Dr. Sharif Christianson MD Referring Provider Active Start: February 22, 2025 End: February 22, 2025 Sabi Lynn COUNTER TACKER, COUNTER TACKER-C Attending physician Active Start: February 22, 2025 End: February 22, 2025 Team Status: Inactive Member Role/Relationship Status Dates Dr. Sharif Christianson MD Primary care physician Active Start: March 08, 2025 End: March 08, 2025 Dr. Sharif Christianson MD Referring Provider Active Start: March 08, 2025 End: March 08, 2025 DENISE Miranda Attending physician Active Sta rt: March 08, 2025 End: March 08, 2025 Team Status: Inactive Member Role/Relationship Status Dates Dr. Sharif Christianson MD Primary care physician Active Start: March 08, 2025 End: March 08, 2025 DENISE Miranda Attending physician Active Sta rt: March 08, 2025 End: March 08, 2025 DENISE Miranda Referring Provider Active Star t: March 08, 2025 End: March 08, 2025 Team Status: Inactive Member Role/Relationship Status Dates Dr. Sharif Christianson MD Primary care physician Active Start: March 15, 2025 End: March 15, 2025 Dr. Sharif Christianson MD Referring Provider Active Start: March 15, 2025 End: March 15, 2025 Dr. Nic Hall MD Attending physician Active Start: March 15, 2025 End: March 15, 2025 Team Status: Inactive Member Role/Relationship Status Dates Dr. Sharif Christianson MD Primary care physician Active Start: March 28, 2025 End: March 28, 2025 Dr. Shannan Waldrop MD Attending physician Active Start: March 28, 2025 End: March 28, 2025 Dr. Shannan Waldrop MD Referring Provider Active Start: March 28, 2025 End: March 28, 2025 Team Status: Inactive Member Role/Relationship Status Dates Dr. Sharif Christianson MD Primary care physician Active Start: April 05, 2025 End: April 05, 2025 DENISE Miranda Attending physician Active Sta rt: April 05, 2025 End: April 05, 2025 DENISE Miranda Referring Provider Active Star t: April 05, 2025 End: April 05, 2025 Team Status: Inactive Member Role/Relationship Status Dates Dr. Sharif Christianson MD Primary care physician Active Start: April 05, 2025 End: April 05, 2025 Dr. Sharif Christianson MD Referring Provider Active Start: April 05, 2025 End: April 05, 2025 Dr. Shannan Waldrop MD Attending physician Active Start: April 05, 2025 End: April 05, 2025 Team Status: Inactive Member Role/Relationship Status Dates Dr. Sharif Christianson MD Primary care physician Active Start: April 05, 2025 End: April 05, 2025 Dr. Sharif Christianson MD Referring Provider Active Start: April 05, 2025 End: April 05, 2025 Dr. Eder Davis MD Attending physician Active Start: April 05, 2025 End: April 05, 2025 Team Status: Inactive Member Role/Relationship Status Dates Dr. Sharif Christianson MD Primary care physician Active Start: April 21, 2025 End: April 21, 2025 Dr. Sharif Christianson MD Attending physician Active Start: April 21, 2025 End: April 21, 2025 Team Status: Inactive Member Role/Relationship Status Dates Dr. Sharif Christianson MD Primary care physician Active Start: April 26, 2025 End: April 26, 2025 Dr. Sharif Christianson MD Referring Provider Active Start: April 26, 2025 End: April 26, 2025 Dr. Shannan Waldrop MD Attending physician Active Start: April 26, 2025 End: April 26, 2025 Team Status: Inactive Member Role/Relationship Status Dates Dr. Sharif Christianson MD Primary care physician Active Start: May 17, 2025 End: May 17, 2025 Dr. Sharif Christianson MD Referring Provider Active Start: May 17, 2025 End: May 17, 2025 Dr. Shannan Waldrop MD Attending physician Active Start: May 17, 2025 End: May 17, 2025 Team Status: Inactive Member Role/Relationship Status Dates Dr. Sharif Christianson MD Primary care physician Active Start: June 01, 2025 End: June 01, 2025 Dr. Sharif Christianson MD Referring Provider Active Start: June 01, 2025 End: June 01, 2025 Dr. Dave Rossi MD Attending physician Active Start: June 01, 2025 End: June 01, 2025 Team Status: Inactive Member Role/Relationship Status Dates Dr. Sharif Christianson MD Primary care physician Active Start: June 07, 2025 End: June 07, 2025 Dr. Sharif Christianson MD Referring Provider Active Start: June 07, 2025 End: June 07, 2025 Sabi Lynn COUNTER TACKER, COUNTER TACKER-C Attending physician Active Start: June 07, 2025 End: June 07, 2025 Team Status: Active Member Role/Relationship Status Dates Dr. Sharif Christianson MD Primary care physician Active Start: June 07, 2025 Dr. Shannan Waldrop MD Attending physician Active Start: June 07, 2025 Dr. Shannan Waldrop MD Referring Provider Active Start: June 07, 2025 Dr. Pinky Winter MD Nurse Practitioner Active Start: June 07, 2025 Team Status: Active Member Role/Relationship Status Dates Dr. Sharif Christianson MD Primary care physician Active Start: June 10, 2025 Dr. Dave Rossi MD Attending physician Active Start: June 10, 2025 Dr. Dave Rossi MD Referring Provider Active S tart: June 10, 2025 Team Status: Active Member Role/Relationship Status Dates Dr. Sharif Christianson MD Primary care physician Active Start: June 10, 2025 Dr. Dave Rossi MD Attending physician Active Start: June 10, 2025 Team Status: Inactive Member Role/Relationship Status Dates Dr. Sharif Christianson MD Primary care physician Active Start: March 08, 2025 End: March 08, 2025 Dr. Sharif Christianson MD Referring Provider Active Start: March 08, 2025 End: March 08, 2025 DENISE Miranda Attending physician Active Sta rt: March 08, 2025 End: March 08, 2025 Team Status: Inactive Member Role/Relationship Status Dates Dr. Sharif Christianson MD Primary care physician Active Start: March 08, 2025 End: March 08, 2025 DENISE Miranda Attending physician Active Sta rt: March 08, 2025 End: March 08, 2025 DENISE Miranda Referring Provider Active Star t: March 08, 2025 End: March 08, 2025 Team Status: Inactive Member Role/Relationship Status Dates Dr. Sharif Christianson MD Primary care physician Active Start: March 15, 2025 End: March 15, 2025 Dr. Sharif Christianson MD Referring Provider Active Start: March 15, 2025 End: March 15, 2025 Dr. Nic Hall MD Attending physician Active Start: March 15, 2025 End: March 15, 2025 Team Status: Inactive Member Role/Relationship Status Dates Dr. Sharif Christianson MD Primary care physician Active Start: March 28, 2025 End: March 28, 2025 Dr. Shannan Waldrop MD Attending physician Active Start: March 28, 2025 End: March 28, 2025 Dr. Shannan Waldrop MD Referring Provider Active Start: March 28, 2025 End: March 28, 2025 Team Status: Inactive Member Role/Relationship Status Dates Dr. Sharif Christianson MD Primary care physician Active Start: April 05, 2025 End: April 05, 2025 DENISE Miranda Attending physician Active Sta rt: April 05, 2025 End: April 05, 2025 DENISE Miranda Referring Provider Active Star t: April 05, 2025 End: April 05, 2025 Team Status: Inactive Member Role/Relationship Status Dates Dr. Sharif Christianson MD Primary care physician Active Start: April 05, 2025 End: April 05, 2025 Dr. Sharif Christianson MD Referring Provider Active Start: April 05, 2025 End: April 05, 2025 Dr. Shannan Waldrop MD Attending physician Active Start: April 05, 2025 End: April 05, 2025 Team Status: Inactive Member Role/Relationship Status Dates Dr. Sharif Christianson MD Primary care physician Active Start: April 05, 2025 End: April 05, 2025 Dr. Sharif Christianson MD Referring Provider Active Start: April 05, 2025 End: April 05, 2025 Dr. Eder Davis MD Attending physician Active Start: April 05, 2025 End: April 05, 2025 Team Status: Inactive Member Role/Relationship Status Dates Dr. Sharif Christianson MD Primary care physician Active Start: April 21, 2025 End: April 21, 2025 Dr. Sharif Christianson MD Attending physician Active Start: April 21, 2025 End: April 21, 2025 Team Status: Inactive Member Role/Relationship Status Dates Dr. Sharif Christianson MD Primary care physician Active Start: April 26, 2025 End: April 26, 2025 Dr. Sharif Christianson MD Referring Provider Active Start: April 26, 2025 End: April 26, 2025 Dr. Shannan Waldrop MD Attending physician Active Start: April 26, 2025 End: April 26, 2025 Team Status: Inactive Member Role/Relationship Status Dates Dr. Sharif Christianson MD Primary care physician Active Start: May 17, 2025 End: May 17, 2025 Dr. Sharif Christianson MD Referring Provider Active Start: May 17, 2025 End: May 17, 2025 Dr. Shannan Waldrop MD Attending physician Active Start: May 17, 2025 End: May 17, 2025 Team Status: Inactive Member Role/Relationship Status Dates Dr. Sharif Christianson MD Primary care physician Active Start: June 01, 2025 End: June 01, 2025 Dr. Sharif Christianson MD Referring Provider Active Start: June 01, 2025 End: June 01, 2025 Dr. Dave Rossi MD Attending physician Active Start: June 01, 2025 End: June 01, 2025 Team Status: Inactive Member Role/Relationship Status Dates Dr. Sharif Christianson MD Primary care physician Active Start: June 07, 2025 End: June 07, 2025 Dr. Sharif Christianson MD Referring Provider Active Start: June 07, 2025 End: June 07, 2025 Sabi Lynn COUNTER TACKER, COUNTER TACKER-C Attending physician Active Start: June 07, 2025 End: June 07, 2025 Team Status: Active Member Role/Relationship Status Dates Dr. Sharif Christianson MD Primary care physician Active Start: June 07, 2025 Dr. Shannan Waldrop MD Attending physician Active Start: June 07, 2025 Dr. Shannan Waldrop MD Referring Provider Active Start: June 07, 2025 Dr. Pinky Winter MD Nurse Practitioner Active Start: June 07, 2025 Team Status: Inactive Member Role/Relationship Status Dates Dr. Sharif Christianson MD Primary care physician Active Start: June 10, 2025 End: June 10, 2025 Dr. Dave Rossi MD Attending physician Active Start: June 10, 2025 End: June 10, 2025 Dr. Dave Rossi MD Referring Provider Active S tart: June 10, 2025 End: June 10, 2025 Team Status: Active Member Role/Relationship Status Dates Dr. Sharif Christianson MD Primary care physician Active Start: June 22, 2025 Dr. Sharif Christianson MD Attending physician Active Start: June 22, 2025 Dr. Sharif Christianson MD Referring Provider Active Start: June 22, 2025 Goals (unrecognized section and content) Goals [...] Patient Specialty Diagnoses / Procedures Referred By Contac t Referred To Contact CT IMAGING Diagnoses Intracranial hemorrhage (HCC) Procedures CT BRAIN WO IVCON CT HEAD/BRAIN W/O CONTRAST MATERIAL Kacy Glez, SOLAR ENERGY SYSTEMS ENGINEER.MILANESE KNITTING MACHINE OPERATOR [address] [place] [address] Ct Imaging Referral ID Status Reason Start Date Expiration Date V isits Requested Visits Authorized [id number] Closed Auto-Generate d Referral 12/25/2021 02/25/2022 1 1 Reason Comments Follow Up Phone Call All Clear Reason Comments Established Patient post op, would like to discuss starting meds prescribed by PCP Reason Comments Critical Care Transport Reason Comments Follow Up Phone Call Post Discharge F/U - attempt made. No answer. Reason Comments Post Op Reason Comments Established Patient Post Op 03.28.2022 sx with Juhi K; pt discharged from [facility] at [facility] on 04.17.2022 Specialty Diagnoses / Procedures Referred By Contac t Referred To Contact CT IMAGING Diagnoses Subdural hemorrhage (HCC) Procedures CT BRAIN WO IVCON CT HEAD/BRAIN W/O CONTRAST MATERIAL Jitendra Apple, SOLAR ENERGY SYSTEMS ENGINEER.MILANESE KNITTING MACHINE OPERATOR [address] [facility] [address] [place] [address] Ct Imaging Referral ID Status Reason Start Date Expiration Date V isits Requested Visits Authorized [id number] Closed Auto-Generate d Referral 04/12/2022 05/05/2023 1 1 Reason Comments Established Patient Referral ID Status Reason Start Date Expiration Date V isits Requested Visits Authorized [id number] Closed Auto-Generate d Referral 05/07/2022 07/07/2022 1 [...] BE BASED ON THE PRIMARY CLINICAL RECORDS. [employer] provides no warranty or guarantee of the accuracy or completeness of information in this document.
== END | disposition home or self-care (01) ==
LOC: CT 07:13
PROVIDERS: PCP Family Medicine; Referring Provider Internal Medicine Hematology & Oncology; Visit Provider Internal Medicine Hematology & Oncology
DX: C34.12 Malignant neoplasm of upper lobe, left bronchus or lung (principal); C78.01 Secondary malignant neoplasm of right lung; C78.02 Secondary malignant neoplasm of left lung
CPT/HCPCS: 71260; 74177; Q9967; A4216

== ENCOUNTER → 2025-07-15 | Outpatient (CLI) | payer MEDICARE, MEDICAID, SELFPAY ==
--- NOTE | 2025-07-15 07:43 | NM_ITS ---
PROCEDURE: BONE SCAN WHOLE BODY 07/15/2025 REASON FOR EXAM: F/U NSCLC TECHNIQUE: Procedure Code: NMBO Modality: NM Procedure: BONE SCAN WHOLE BODY Whole-body bone scan with anterior and posterior views. Imaging at 3.5 hours. RADIOPHARMACEUTICAL: 28.3 mCi Technetium-99m MDP IV COMPARISON: None FINDINGS: There is increased activity in the nasal region, consistent with paranasal sinus disease. There is an area of decreased activity in the right side of the skull which may indicate prior craniotomy. There is increased activity in the shoulder joints, right knee and right hindfoot, consistent with arthropathy. There is normal physiologic activity in the kidneys and urinary bladder. NM/Bone Scan Whole Body IMPRESSION: 1. There are no foci of abnormal skeletal activity to suggest neoplastic disea se. 2. Other findings as noted. Reading Location: [id number]
--- OUTSIDE RECORDS SUMMARY | 2025-07-15 07:54 | XMS RPT_ITS | CCD ---
Author Organization [facility] [place] [facility] Care Team Providers Care Manager Fashion Name Role Phone HarrietJesusita Garcia Unavailable Unavailable [...] Dr. Anahi Farah Other Provider Sharif Christianson Thurmond Primary Care Provider [phone] Eder Davis Unavailable LOAN RIVAS Referring Unavailable [facility] Primary Care Unavailabl e PERCY, BRYCE F Attending Unavailable KINGT, BRYCE F Referring Unavailable [facility] Primary Care Unavailabl e PERCY, BRYCE F Attending Unavailable KINGT, BRYCE F Referring Unavailable [facility] Primary Care Unavailabl e MANUELYAT, BRYCE F Referring Unavailable [facility] Primary Care Unavailabl e KACY GLEZ Referring Unavailable [facility] Primary Care Unavailabl e [facility] Referring Unavailabl e PERCY, BRYCE F Attending Unavailable [facility] Primary Care Unavailabl e MEGHAN SHARIF EDWARD Referring Unavailabl e PERCY, BRYCE F Attending Unavailable [facility] Primary Care Unavailabl e REUBEN PLASENCIA Consulting Unavailable KINGT, BRYCE F Admitting Unavailable [facility] Primary Care Unavailabl KYLEIGH Lee Attending Unavailable GISELA MONTOYA Consulting ELIO De Jesus Admitting Unavailable PERCY, BRYCE F Attending Unavailable [facility] Primary Care Unavailabl e SHARIF [place]RISTIANSON [place] Referring Unavailabl e [facility] Primary Care Unavailabl e PERCY, BRYCE F Attending Unavailable [facility] Referring Unavailabl e [facility] Primary Care Unavailabl e MEGHAN SHARIF EDWARD Referring Unavailabl e PERCY, BRYCE F Attending Unavailable [facility] Primary Care Unavailabl e KACY GLEZ Referring Unavailable [facility] Primary Care Unavailabl e PERCY, BRYCE F Referring Unavailable [facility] Primary Care Unavailabl e PERCY, BRYCE F Attending Unavailable PERCY, BRYCE F Admitting Unavailable [facility] Primary Care Unavailabl e PERCY, BRYCE [...] Attending Provider Dr. Brennen Roth Attending Provider [facility] [place] Attending Provider Dr. Sharif Christianson Primary Care Provider Dr. Brennen Roth Referring Provider Dr. Sharif Christianson Referring Provider Leah SLOT MACHINE DEPARTMENT FLOORPERSON, SLOT MACHINE DEPARTMENT FLOORPERSON-C Sabi Attending Provider Dr. Isreal Carvalho Attending [...] Sharif Christianson MD Primary Care Provider [phone] Dr. Sharif Christianson MD Referring Provider Leah SLOT MACHINE DEPARTMENT FLOORPERSON-C, Sabi Attending Provider Dr. Sharif Christianson MD Attending Provider Ivonne Wilkins Attending Provider Dr. Shannan Waldrop MD Attending Provider Benjie PALOMO, Dr. Campbell Referring Provider Xenia Solorzano Attending Provider Maggy PALOMO, Dr. Pinky Mercado Other Provider Leah SLOT MACHINE DEPARTMENT FLOORPERSON-C, Sabi Referring Provider Meghan PALOMO, Dr. Sharif Lovell Primary Care Provider Meghan PALOMO, Dr. Sharif Lovell Referring Provider Benjie PALOMO, Dr. Campbell Attending Provider Meghan PALOMO, Dr. Sharif Lovell Attending Provider Leah SLOT MACHINE DEPARTMENT FLOORPERSON-C, Sabi Attending Provider Benjie PALOMO, Dr. Campbell Referring Provider Maggy PALOMO, Dr. Pinky Mercado Other Provider Meghan PALOMO, Dr. Sharif Lovell Primary Care Provider Meghan PALOMO, Dr. Sharif Lovell Referring Provider Benjie PALOMO, Dr. Campbell Attending Provider Leah SLOT MACHINE DEPARTMENT FLOORPERSON-C, Sabi Attending Provider Meghan PALOMO, Dr. Sharif Lovell Attending Provider Benjie PALOMO, Dr. Campbell Referring Provider Maggy PALOMO, Dr. Pinky Mercado Other Provider Meghan PALOMO, Dr. Sharif Lovell Primary Care Provider [phone] Meghan PALOMO, Dr. Sharif Lovell Referring Provider Benjie PALOMO, Dr. Campbell Attending Provider Benjie PALOMO, Dr. Campbell Referring Provider Maggy PALOMO, Dr. Pinky Mercado Other Provider Dr. Sharif Christianson MD Primary Care Provider Meghan PALOMO, Dr. Sharif Lovell Referring Provider Leah SLOT MACHINE DEPARTMENT FLOORPERSON-C, Sabi Attending Provider Dr. Sharif Christianson MD Primary Care Provider Meghan PALOMO, Dr. Sharif Lovell Referring Provider Darshana WALKER, Xenia Attending Provider Darshana WALKER, Xenia Referring Provider Isabel PALOMO, Dr. Lucero Attending Provider Benjie PALOMO, Dr. Campbell Referring Provider Maggy PALOMO, Dr. Pinky Mercado Other Provider Meghan PALOMO, Dr. Sharif Lovell Primary Care Provider Meghan PALOMO, Dr. Sharif Lovell Referring Provider Leah SLOT MACHINE DEPARTMENT FLOORPERSON-C, Sabi Attending Provider Benjie PALOMO, Dr. Campbell Referring Provider Maggy PALOMO, Dr. Pinky Mercado Other Provider Ryan PALOMO, Dr. Gaines Attending Provider Megahn PALOMO, Dr. Sharif Lovell Primary Care Provider Dr. Sharif Christianson MD Referring Provider Benjie PALOMO, Dr. Campbell Attending Provider Maggy PALOMO, Dr. Pinky Mercado Other Provider Dr. Sharif Christianson MD Primary Care Physician Dr. Sharif Christianson MD Attending Physician Dr. Sharif Christianson MD Referring Provider Benjie PALOMO, Dr. Campbell Attending Physician Leah SLOT MACHINE DEPARTMENT FLOORPERSON-C, Sabi Attending Physician Darshana PA, Xenia Attending Physician Darshana WALKER, Xenia Referring Provider Isabel PALOMO, Dr. Lucero Attending Physician Dr. Shannan Waldrop MD Referring Provider Ryan PALOMO, Dr. Gaines Attending Physician Maggy PALOMO, Dr. Pinky Mercado Nurse Practitioner Maggy PALOMO, Dr. Pinky Mercado Nurse Practitioner Meghan PALOMO, Dr. Sharif Lovell Primary Care Physician Meghan PALOMO, Dr. Sharif Lovell Referring Provider Leah SLOT MACHINE DEPARTMENT FLOORPERSON-C, Sabi Attending Physician Gilliland PA, Xenia Attending [...] Enid PALOMO, Dr. Acosta Attending Physician Leah SLOT MACHINE DEPARTMENT FLOORPERSON-C, Sabi Attending Physician Maggy PALOMO, Dr. Pinky Mercado Nurse Practitioner Dr. Dave Rossi MD Referring Provider [phone] Sharif Christianson Primary Care Unavailable SchSharif brasher Referring Unavailable SchSharif brasher Attending Unavailable SchSharif brasher E Primary Care Unavailable Xenia Gilliland Attending Unavailable Xenia Gilliland Referring Unavailable SchSharif brasher Primary Care Unavailable SchSharif brasher Referring Unavailable Shannan Waldrop Attending Unavailable Shannan Waldrop Attending Unavailable Shannan Waldrop Referring Unavailable SchSharif brasher E Primary Care Unavailable SchShairf brasher Attending Unavailable Sharif Christianson Primary Care Unavailable SchSharif brasher Referring Unavailable SchSharif brasher Primary Care Unavailable Dave Rossi Referring Unavailable Dave Rossi Attending Unavailable Sharif Christianson Attending Unavailable SchSharif brasher Referring Unavailable SchSharif brasher Primary Care Unavailable SchSharif brasher Referring Unavailable SchSharif brasher Primary Care Unavailable Shannan Waldrop Attending Unavailable Sharif Christianson Primary Care Unavailable SchSharif brasher Referring Unavailable Leah SLOT MACHINE DEPARTMENT FLOORPERSON, Sabi Attending Unavailable SchSharif brasher E Primary Care Unavailable SchSharif brasher Referring Unavailable Shannan Waldrop Attending Unavailable Sharif Christianson Primary Care Unavailable SchSharif brasher Referring Unavailable Xenia Gilliland Attending Unavailable Sharif Christianson Primary Care Unavailable Ivonne Wilkins Attending Unavail able Sharif Christianson Referring Unavailable SchSharif brasher Primary Care Unavailable SchSharif brasher Referring Unavailable Leah SLOT MACHINE DEPARTMENT FLOORPERSON, Sabi Attending Unavailable Sharif Christianson Primary Care Unavailable SchSharif brasher Referring Unavailable Leah SLOT MACHINE DEPARTMENT FLOORPERSON, Sabi Attending Unavailable SchSharif brasher Primary Care Unavailable Leah SLOT MACHINE DEPARTMENT FLOORPERSON, Sabi Attending Unavailable Leah SLOT MACHINE DEPARTMENT FLOORPERSON, Sabi Referring Unavailable Leah SLOT MACHINE DEPARTMENT FLOORPERSON, Sabi Attending Unavailable Sharif Christianson Primary Care Unavailable Leah SLOT MACHINE DEPARTMENT FLOORPERSON, Sabi Referring Unavailable SchSharif brasher E Primary Care Unavailable Pinky Winter V Consulting Unavailable Shannan Waldrop Attending Unavailable Shannan Waldrop Referring Unavailable SchSharif brasher E Primary Care Unavailable Xenia Gilliland Attending Unavailable Sharif Christianson Referring Unavailable SchSharif brasher E Primary Care Unavailable Leah SLOT MACHINE DEPARTMENT FLOORPERSON, Sabi Attending Unavailable Sharif Christianson Referring Unavailable Sharif Christiansno Primary Care Unavailable Sharif Christianson Referring Unavailable Leah SLOT MACHINE DEPARTMENT FLOORPERSON, Sabi Attending Unavailable Sharif Christianson Primary Care [...] Care Unavailable Sharif Christianson Referring Unavailable Leah SLOT MACHINE DEPARTMENT FLOORPERSON, Sabi Attending Unavailable Sharif Christianson Primary Care Unavailable Sharif Christianson Referring Unavailable Sharif Christianson Primary Care Unavailable Sharif Christianson Referring Unavailable Dave Rossi Attending Unavailable Shannan Waldrop Attending Unavailable Sharif Christianson Primary Care Unavailable Sharif Christianson Referring Unavailable Sharif Christianson Referring Unavailable Sharif Christianson Primary Care Unavailable Leah SLOT MACHINE DEPARTMENT FLOORPERSON, Sabi Attending Unavailable Sharif Christianson Referring Unavailable Leah SLOT MACHINE DEPARTMENT FLOORPERSON, Sabi Attending Unavailable Sharif Christianson Primary Care Unavailable Sharif Christianson Primary Care Unavailable Sharif Christianson Referring Unavailable Shannan Waldrop Attending Unavailable Sharif Christianson Primary Care Unavailable Sharif Christianson Referring Unavailable Eder Davis Attending Unavailable Sharif Christianson Primary Care Unavailable Dave Rossi Attending Unavailable Dave Rossi Referring Unavailable Sharif Christianson Referring Unavailable Leah SLOT MACHINE DEPARTMENT FLOORPERSON, Saib Attending Unavailable Sharif Christianson Primary Care Unavailable Sharif Christianson Primary Care Unavailable Leah SLOT MACHINE DEPARTMENT FLOORPERSON, Sabi Attending Unavailable Sharif Christianson Referring Unavailable Sharif Christianson Primary Care Unavailable Xenia Gilliland Attending Unavailable Xenia Gilliland Referring Unavailable Sharif Christianson Attending Unavailable Sharif Christianson Primary Care Unavailable Allergies Allergy Classification Reported Allergen(s) Allergy Type Date of Onset Reaction(s) Facility (19 sources) Acetaminophen / oxyCODONE; Translations: [OXYCODONE-ACETAMI NOPHEN] Drug Allergy 10-21-2019 Itching [facility] (13 sources) Acetaminophen Drug Allergy 03-04-[address] [facility] (20 sources) oxyCODONE Drug Allergy 03-04-2022 [facility] (1 source) oxyCODONE Drug Allergy 06-28-[address] [facility] Repository Medications Current Medications Medication Drug [...] 9:48am Start: 10-17-2015 take 4 tablets by [facility] once daily METFORMIN HCL ER 500 MG [id number] four tablets by mouth daily METFORMIN HCL [id number] Eder Davis MD Start: 10-17-2015 take 2 tablets by [facility] twice daily METFORMIN HCL ER 500 MG [id number] Two tablets by mouth twice daily METFORMIN HCL [id number] Arely Smart RN Start: 10-08-2015 End: 09-29-2020 [...] Comment on above: Take 1,000 mg by [facility] twice daily. Take 500 mg by [...] Comment on above: Take 2 tablets by [facility] every 6 hours as needed for pain. [...] One tablet by mouth daily AMLODIPINE BESYLATE [id number] Eder Davis MD amoxicillin 500 mg oral [...] TABS One tablet by mouth daily ASPIRIN [id number] Arely Smart RN Start: 10-17-2015 take 1 tablet by rick th once daily ASPIRIN 81 MG TABS One tablet by mouth daily ASPIRIN [id number] Arely Smart RN Comment on above: Take [...] tablet by mouth every night ATORVASTATIN CALCIUM [id number] Eder Davis MD Comment on above: Take 40 mg by mouth once daily. 1 tablet by ORAL/FEE DING TUBE route daily at bedtime. bee pollen 580 mg oral capsule (6 sources) Start: 6 End: 6 take 1 tablet by mouth once daily BEE POLLEN 580 MG CAPS One tablet by mouth daily BEE POLLEN [id number] Arely Smart RN bisacodyl 5 mg delayed [...] 8:46am Start: 07-30-2022 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 Start: 05-30-2016 LANTUS 100 UNI T/ML SOLN 25 units per day INSULIN GLARGINE [id number] Leticia A [employer] T[employer]ASUR[employer] MANAGEMENT SALES CONSULTANT-C lacosamide 100 mg oral tablet (20 sources) [...] tablet by mouth twice daily METOPROLOL TARTRATE [id number] Eder Davis MD 24 hr nicotine 0.875 [...] MG/24HR PT24 one patch transderm daily NICOTINE [id number] Arely Smart RN End: 03-28-2022 nicotine (NICODERM) [...] Start: 03-04-2016 End: 06-26-2018 polyethylene glycol 3350 79084 mg powder for oral solution (20 sources) [...] PO DAILY January 29, 2023 12:00am sennosides, long term 8.6 mg oral tablet (4 sources) Start: [...] disease (20 sources) Atherosclerotic heart disease of [place] coronary artery without angina pectoris; Translations: [Coronary [...] Episodic Other circulatory disease (2 sources) 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 Comment on above: Performed By: #### L 501.9520, L500.4050, L501.2300, L100.0100 ####[facility] [address] [place], [address] Absolute Neut 6.5 X10 3/uL Normal 2.0-7.[address] [facility] Comment on above: Performed By: #### L 501.9520, L500.4050, L501.2300, L100.0100 ####[facility] [address] [place], [address] Basophils/100 WBC (Bld) 0.5 % Normal 0-1 [facility] Comment on above: Performed By: #### L 501.9520, L500.4050, L501.2300, L100.0100 ####[facility] [address] [place], [address] Eosinophils/100 WBC (Bld) 1.0 % Normal 0-[address] [facility] Comment on above: Performed By: #### L 501.9520, L500.4050, L501.2300, L100.0100 ####[facility] [address] [place], [address] Erythrocyte distribution width (RBC) [Ratio] 17.9 % High 11.6-14.[address] [facility] Comment on above: Performed By: #### L 501.9520, L500.4050, L501.2300, L100.0100 ####[facility] [address] [place], [address] Hematocrit (Bld) [Volume fraction] 35.2 % Low 37-[address] [facility] Comment on above: Performed By: #### L 501.9520, L500.4050, L501.2300, L100.0100 ####[facility] [address] [place], [address] Hemoglobin (Bld) [Mass/Vol] 10.9 g/dL Low 12.0-15.[address] [facility] Comment on above: Performed By: #### L 501.9520, L500.4050, L501.2300, L100.0100 ####[facility] [address] [place], [address] IG% 0.400 Normal 0.0-0.[address] [facility] Comment on above: Result Comment: IG% - Immature Granulocytes (promyelocytes, myelocytes andmetamyelocytes) > 1% indicates that a LEFT SHIFT is Present. Performed By: #### L 501.9520, L500.4050, L501.2300, L100.0100 ####[facility] [address] [place], [address] Lymphocytes/100 WBC (Bld) 15.3 % Low 19-[address] [facility] Comment on above: Performed By: #### L 501.9520, L500.4050, L501.2300, L100.0100 ####[facility] [address] [place], [address] MCH (RBC) [Entitic mass] 26.6 pg Low 27.0-32.[address] [facility] Comment on above: Performed By: #### L 501.9520, L500.4050, L501.2300, L100.0100 ####[facility] [address] [place], [address] MCHC (RBC) [Mass/Vol] 31.0 g/dL Low 32-36 [facility] Comment on above: Performed By: #### L 501.9520, L500.4050, L501.2300, L100.0100 ####[facility] [address] [place], [address] MCV (RBC) [Entitic vol] 85.9 fL Normal 81-99 [facility] Comment on above: Performed By: #### L 501.9520, L500.4050, L501.2300, L100.0100 ####[facility] [address] [place], [address] Monocytes/100 WBC (Bld) 12.1 % High 0-10 [facility] Comment on above: Performed By: #### L 501.9520, L500.4050, L501.2300, L100.0100 ####[facility] [address] [place], [address] Neutrophils/100 WBC (Bld) 70.7 % High 47-[address] [facility] Comment on above: Performed By: #### L 501.9520, L500.4050, L501.2300, L100.0100 ####[facility] [address] [place], [address] Nucleated RBC (Bld) [#/Vol] 0 10*3/uL Normal 0-[address] [facility] Comment on above: Performed By: #### L 501.9520, L500.4050, L501.2300, L100.0100 ####[facility] [address] [place], [address] Platelet mean volume (Bld) [Entitic vol] 8.5 fL Normal 6.2-12.[address] [facility] Comment on above: Performed By: #### L 501.9520, L500.4050, L501.2300, L100.0100 ####[facility] [address] [place], [address] Platelets (Bld) [#/Vol] 361 10*3/uL Normal 150-[address] [facility] Comment on above: Performed By: #### L 501.9520, L500.4050, L501.2300, L100.0100 ####[facility] [address] [place], [address] RBC (Bld) [#/Vol] 4.10 10*6/uL Low 4.2-5.4 [facility] Comment on above: Performed By: #### L 501.9520, L500.4050, L501.2300, L100.0100 ####[facility] [address] [place], [address] RDW SD 55.4 fl High 35.1-43.[address] [facility] Comment on above: Performed By: #### L 501.9520, L500.4050, L501.2300, L100.0100 ####[facility] [address] [place], [address] WBC (Bld) [#/Vol] 9.1 10*3/uL Normal 4.4-11.0 [facility] Comment on above: Performed By: #### L 501.9520, L500.4050, L501.2300, L100.0100 ####[facility] [address] [place], [address] Comprehensive Metabolic [facility] 06-28-2025 Albumin [Mass/Vol] 4.0 g/dL Normal 3.4-4.8 [facility] Comment on above: Performed By: #### L 501.9520, L500.4050, L501.2300, L100.0100 ####[facility] [address] [place], [address] Albumin/Globulin [Mass ratio] 1.4 {ratio} Normal 0.9-2.[address] [facility] Comment on above: Performed By: #### L 501.9520, L500.4050, L501.2300, L100.0100 ####[facility] [address] [place], [address] ALK PHOS 89 U/L Normal 35-[address] [facility] Comment on above: Performed By: #### L 501.9520, L500.4050, L501.2300, L100.0100 ####[facility] [address] [place], [address] ALT [Catalytic activity/Vol] 8 U/L Normal <=[address] [facility] Comment on above: Performed By: #### L 501.9520, L500.4050, L501.2300, L100.0100 ####[facility] [address] [place], [address] AST [Catalytic activity/Vol] 14 U/L Normal <=[address] [facility] Comment on above: Performed By: #### L 501.9520, L500.4050, L501.2300, L100.0100 ####[facility] [address] [place], [address] Bilirubin [Mass/Vol] 0.36 mg/dL Normal 0.00-1.30 [facility] Comment on above: Performed By: #### L 501.9520, L500.4050, L501.2300, L100.0100 ####[facility] [address] [place], [address] BUN/CRE 15.3 RATIO Normal 10-[address] [facility] Comment on above: Performed By: #### L 501.9520, L500.4050, L501.2300, L100.0100 ####[facility] [address] [place], [address] Calcium [Mass/Vol] 9.6 mg/dL Normal 7.6-11.0 [facility] Comment on above: Performed By: #### L 501.9520, L500.4050, L501.2300, L100.0100 ####[facility] [address] [place], [address] Chloride [Moles/Vol] 102 mmol/L Normal 98-108 [facility] Comment on above: Performed By: #### L 501.9520, L500.4050, L501.2300, L100.0100 ####[facility] [address] [place], [address] CO2 [Moles/Vol] 20.5 mmol/L Low 21.0-32.[address] [facility] Comment on above: Performed By: #### L 501.9520, L500.4050, L501.2300, L100.0100 ####[facility] [address] [place], [address] Creatinine [Mass/Vol] 0.75 mg/dL Normal 0.70-1.20 [facility] Comment on above: Performed By: #### L 501.9520, L500.4050, L501.2300, L100.0100 ####[facility] [address] [place], [address] ECRCL 64.38 ml/min Normal 50-[address] [facility] Comment on above: Performed By: #### L 501.9520, L500.4050, L501.2300, L100.0100 ####[facility] [address] [place], [address] GAP 14 Normal 5-[address] [facility] Comment on above: Performed By: #### L 501.9520, L500.4050, L501.2300, L100.0100 ####[facility] [address] [place], [address] GFR/1.73 sq M.predicted among non-blacks MDRD (S/P/Bld) [Vol rate/Area] 86 mL/min/{1.73_m2} Normal >60 [facility] Comment on above: Result Comment: mL/m in/1.73m2 CKD-EPI Creatinine Equation (2020) Performed By: #### L 501.9520, L500.4050, L501.2300, L100.0100 ####[facility] [address] [place], [address] Globulin (S) [Mass/Vol] 2.9 g/dL Normal 2.2-4.2 [facility] Comment on above: Performed By: #### L 501.9520, L500.4050, L501.2300, L100.0100 ####[facility] [address] [place], [address] Glucose [Mass/Vol] 131 mg/dL High 70-99 [facility] Comment on above: Performed By: #### L 501.9520, L500.4050, L501.2300, L100.0100 ####[facility] [address] [place], [address] Potassium [Moles/Vol] 4.1 mmol/L Normal 3.3-5.1 [facility] Comment on above: Performed By: #### L 501.9520, L500.4050, L501.2300, L100.0100 ####[facility] [address] [place], [address] Sodium [Moles/Vol] 137 mmol/L Normal 133-145 [facility] Comment on above: Performed By: #### L 501.9520, L500.4050, L501.2300, L100.0100 ####[facility] [address] [place], [address] T PROT 6.9 g/dL Normal 5.9-8.[address] [facility] Comment on above: Performed By: #### L 501.9520, L500.4050, L501.2300, L100.0100 ####[facility] [address] [place], [address] Urea nitrogen [Mass/Vol] 12 mg/dL Normal 4-[address] [facility] Comment on above: Performed By: #### L 501.9520, L500.4050, L501.2300, L100.0100 ####[facility] [address] [place], [address] Oncology Visit Reporton 06-18 Oncology Visit Report Normal [facility] Phosphoruson 06-28-2025 Phosphate [Mass/Vol] 3.6 mg/dL Normal 2.7-4.5 [facility] Comment on above: Performed By: #### L 501.9520, L500.4050, L501.2300, L100.0100 ####[facility] [address] [place], [address] Thyroid Stim Hormone (TSH)on 06-28-2025 TSH 12.700 uIU/mL High 0.300-4.[address] [facility] Comment on above: Performed By: #### L 501.9520, L500.4050, L501.2300, L100.0100 ####[facility] [address] [place], [address] Chest PA and Lateralon 06-22 Chest PA and Lateral Normal [facility] Venous Duplex US, Unilateral on 06-10-2025 Venous Duplex US, Unilateral Normal [facility] Absolute lymphocyte countOrd ered By: Shannan Waldrop on 06-07-2025 Lymphocytes Auto (Unsp spec) [#/Vol] 1.31 10*3/uL 0.83-4.[address] [facility] Absolute neutrophil countOrd ered By: Shannan Waldrop on 06-07-2025 Neutrophils (Bld) [#/Vol] 7.3 10*3/uL 2.0-7.[address] [facility] Anion gap in Serum or Plasma Ordered By: Shannan Benjie on 06-07-2025 Anion gap [Moles/Vol] 15 mmol/L 12-30 [facility] Automated lymphocyte count a s percentage of total leukocytesOrdered By: Shannan Benjie on 06-07-2025 Lymphocytes/100 WBC Auto (Unsp spec) 13.3 % Low [facility] BUN/creatinine ratioOrdered By: [facility] on 06-07-2025 Urea nitrogen/Creatinine [Mass ratio] 15.4 mg/mg 06-[address] [facility] Basophil percentageOrdered B y: Springja Waldrop on 06-07-2025 Basophils/100 WBC (Bld) 0.5 % 0-1 [facility] Bilirubin, totalOrdered By: [facility] Benjie on 06-07-2025 Bilirubin [Mass/Vol] 0.30 mg/dL 0.00-1.30 [facility] CBC W/Diff, Automatedon 05-19 Absolute Lymph 1.31 X10 3/uL Normal 0.83-4.[address] [facility] Comment on above: Performed By: #### L 501.9520, L500.4050, L501.2300, L100.0100 ####[facility] [address] [place], [address] Absolute Neut 7.3 X10 3/uL Normal 2.0-7.[address] [facility] Comment on above: Performed By: #### L 501.9520, L500.4050, L501.2300, L100.0100 ####[facility] [address] [place], [address] Basophils/100 WBC (Bld) 0.5 % Normal 0-1 [facility] Comment on above: Performed By: #### L 501.9520, L500.4050, L501.2300, L100.0100 ####[facility] [address] [place], [address] Eosinophils/100 WBC (Bld) 1.3 % Normal 0-[address] [facility] Comment on above: Performed By: #### L 501.9520, L500.4050, L501.2300, L100.0100 ####[facility] [address] [place], [address] Erythrocyte distribution width (RBC) [Ratio] 17.4 % High 11.6-14.[address] [facility] Comment on above: Performed By: #### L 501.9520, L500.4050, L501.2300, L100.0100 ####[facility] [address] [place], [address] Hematocrit (Bld) [Volume fraction] 34.6 % Low 37-[address] [facility] Comment on above: Performed By: #### L 501.9520, L500.4050, L501.2300, L100.0100 ####[facility] [address] [place], [address] Hemoglobin (Bld) [Mass/Vol] 11.0 g/dL Low 12.0-15.[address] [facility] Comment on above: Performed By: #### L 501.9520, L500.4050, L501.2300, L100.0100 ####[facility] [address] [place], [address] IG% 0.300 Normal 0.0-0.[address] [facility] Comment on above: Result Comment: IG% - Immature Granulocytes (promyelocytes, myelocytes andmetamyelocytes) > 1% indicates that a LEFT SHIFT is Present. Performed By: #### L 501.9520, L500.4050, L501.2300, L100.0100 ####[facility] [address] [place], [address] Lymphocytes/100 WBC (Bld) 13.3 % Low 19-[address] [facility] Comment on above: Performed By: #### L 501.9520, L500.4050, L501.2300, L100.0100 ####[facility] [address] [place], [address] MCH (RBC) [Entitic mass] 27.3 pg Normal 27.0-32.[address] [facility] Comment on above: Performed By: #### L 501.9520, L500.4050, L501.2300, L100.0100 ####[facility] [address] [place], [address] MCHC (RBC) [Mass/Vol] 31.8 g/dL Low 32-36 [facility] Comment on above: Performed By: #### L 501.9520, L500.4050, L501.2300, L100.0100 ####[facility] [address] [place], [address] MCV (RBC) [Entitic vol] 85.9 fL Normal 81-99 [facility] Comment on above: Performed By: #### L 501.9520, L500.4050, L501.2300, L100.0100 ####[facility] [address] [place], [address] Monocytes/100 WBC (Bld) 10.4 % High 0-10 [facility] Comment on above: Performed By: #### L 501.9520, L500.4050, L501.2300, L100.0100 ####[facility] [address] [place], [address] Neutrophils/100 WBC (Bld) 74.2 % High 47-[address] [facility] Comment on above: Performed By: #### L 501.9520, L500.4050, L501.2300, L100.0100 ####[facility] [address] [place], [address] Nucleated RBC (Bld) [#/Vol] 0 10*3/uL Normal 0-[address] [facility] Comment on above: Performed By: #### L 501.9520, L500.4050, L501.2300, L100.0100 ####[facility] [address] [place], [address] Platelet mean volume (Bld) [Entitic vol] 8.3 fL Normal 6.2-12.[address] [facility] Comment on above: Performed By: #### L 501.9520, L500.4050, L501.2300, L100.0100 ####[facility] [address] [place], [address] Platelets (Bld) [#/Vol] 317 10*3/uL Normal 150-[address] [facility] Comment on above: Performed By: #### L 501.9520, L500.4050, L501.2300, L100.0100 ####[facility] [address] [place], [address] RBC (Bld) [#/Vol] 4.03 10*6/uL Low 4.2-5.4 [facility] Comment on above: Performed By: #### L 501.9520, L500.4050, L501.2300, L100.0100 ####[facility] [address] [place], [address] RDW SD 54.4 fl High 35.1-43.[address] [facility] Comment on above: Performed By: #### L 501.9520, L500.4050, L501.2300, L100.0100 ####[facility] [address] [place], [address] WBC (Bld) [#/Vol] 9.9 10*3/uL Normal 4.4-11.0 [facility] Comment on above: Performed By: #### L 501.9520, L500.4050, L501.2300, L100.0100 ####[facility] [address] [place], [address] Carbon dioxide, total [Moles /volume] in Central venous bloodOrdered By: Shannan Waldrop on 06-07-2025 CO2 [Moles/Vol] 20.0 mmol/L Low 21.0-32.[address] [facility] Chloride assayOrdered By: Adriana Waldrop on 06-07-2025 Chloride [Moles/Vol] 100 mmol/L 98-108 [facility] Comprehensive Metabolic Prof ilon 06-07-2025 Albumin [Mass/Vol] 3.9 g/dL Normal 3.4-4.8 [facility] Comment on above: Performed By: #### L 501.9520, L500.4050, L501.2300, L100.0100 ####[facility] [address] [place], [address] Albumin/Globulin [Mass ratio] 1.2 {ratio} Normal 0.9-2.[address] [facility] Comment on above: Performed By: #### L 501.9520, L500.4050, L501.2300, L100.0100 ####[facility] [address] [place], [address] ALK PHOS 87 U/L Normal 35-[address] [facility] Comment on above: Performed By: #### L 501.9520, L500.4050, L501.2300, L100.0100 ####[facility] [address] [place], [address] ALT [Catalytic activity/Vol] 10 U/L Normal <=[address] [facility] Comment on above: Performed By: #### L 501.9520, L500.4050, L501.2300, L100.0100 ####[facility] [address] [place], [address] AST [Catalytic activity/Vol] 21 U/L Normal <=[address] [facility] Comment on above: Performed By: #### L 501.9520, L500.4050, L501.2300, L100.0100 ####[facility] [address] [place], [address] Bilirubin [Mass/Vol] 0.30 mg/dL Normal 0.00-1.30 [facility] Comment on above: Performed By: #### L 501.9520, L500.4050, L501.2300, L100.0100 ####[facility] [address] [place], [address] BUN/CRE 15.4 RATIO Normal 10-[address] [facility] Comment on above: Performed By: #### L 501.9520, L500.4050, L501.2300, L100.0100 ####[facility] [address] [place], [address] Calcium [Mass/Vol] 10.0 mg/dL Normal 7.6-11.0 [facility] Comment on above: Performed By: #### L 501.9520, L500.4050, L501.2300, L100.0100 ####[facility] [address] [place], [address] Chloride [Moles/Vol] 100 mmol/L Normal 98-108 [facility] Comment on above: Performed By: #### L 501.9520, L500.4050, L501.2300, L100.0100 ####[facility] [address] [place], [address] CO2 [Moles/Vol] 20.0 mmol/L Low 21.0-32.[address] [facility] Comment on above: Performed By: #### L 501.9520, L500.4050, L501.2300, L100.0100 ####[facility] [address] [place], [address] Creatinine [Mass/Vol] 0.79 mg/dL Normal 0.70-1.20 [facility] Comment on above: Performed By: #### L 501.9520, L500.4050, L501.2300, L100.0100 ####[facility] [address] [place], [address] ECRCL 64.95 ml/min Normal 50-[address] [facility] Comment on above: Performed By: #### L 501.9520, L500.4050, L501.2300, L100.0100 ####[facility] [address] [place], [address] GAP 15 Normal 5-[address] [facility] Comment on above: Performed By: #### L 501.9520, L500.4050, L501.2300, L100.0100 ####[facility] [address] [place], [address] GFR/1.73 sq M.predicted among non-blacks MDRD (S/P/Bld) [Vol rate/Area] 80 mL/min/{1.73_m2} Normal >60 [facility] Comment on above: Result Comment: mL/m in/1.73m2 CKD-EPI Creatinine Equation (2020) Performed By: #### L 501.9520, L500.4050, L501.2300, L100.0100 ####[facility] [address] [place], [address] Globulin (S) [Mass/Vol] 3.3 g/dL Normal 2.2-4.2 [facility] Comment on above: Performed By: #### L 501.9520, L500.4050, L501.2300, L100.0100 ####[facility] [address] [place], [address] Glucose [Mass/Vol] 187 mg/dL High 70-99 [facility] Comment on above: Performed By: #### L 501.9520, L500.4050, L501.2300, L100.0100 ####[facility] [address] [place], [address] Potassium [Moles/Vol] 4.4 mmol/L Normal 3.3-5.1 [facility] Comment on above: Performed By: #### L 501.9520, L500.4050, L501.2300, L100.0100 ####[facility] [address] [place], [address] Sodium [Moles/Vol] 135 mmol/L Normal 133-145 [facility] Comment on above: Performed By: #### L 501.9520, L500.4050, L501.2300, L100.0100 ####[facility] [address] [place], [address] T PROT 7.2 g/dL Normal 5.9-8.[address] [facility] Comment on above: Performed By: #### L 501.9520, L500.4050, L501.2300, L100.0100 ####[facility] [address] [place], [address] Urea nitrogen [Mass/Vol] 12 mg/dL Normal 4-[address] [facility] Comment on above: Performed By: #### L 501.9520, L500.4050, L501.2300, L100.0100 ####[facility] [address] [place], [address] Eosinophil percentageOrdered By: Shannan Waldrop on 06-07-2025 Eosinophils/100 WBC (Bld) 1.3 % 0-[address] [facility] Erythrocyte distribution wid th ratioOrdered By: Shannan Waldrop on 06-07-2025 Erythrocyte distribution width (RBC) [Ratio] 17.4 % High 11.6-14.[address] [facility] Erythrocyte distribution wid th standard deviationOrdered By: Shannan Waldrop on 06-07-2025 Erythrocyte distribution width (RBC) [Ratio] 54.4 fl High 35.1-43.[address] [facility] Glomerular filtration rate ( GFR) estimation/1.73 sq m using serum, plasma, or whole bOrdered By: Shannan Waldrop on 06-07-2025 GFR/1.73 sq M.predicted among non-blacks MDRD (S/P/Bld) [Vol rate/Area] 80 mL/min/{1.73_m2} >60 [facility] Comment on above: mL/min/1.73m2 CKD-EP I Creatinine Equation (2020) Hematocrit Auto (Bld) [Volum e fraction]Ordered By: Shannan Waldrop on 06-07-2025 Hematocrit (Bld) [Volume fraction] 34.6 % Low 37-[address] [facility] Hemoglobin measurementOrdere d By: Shannan Waldrop on 06-07-2025 Hemoglobin (Bld) [Mass/Vol] 11.0 g/dL Low 12.0-15.[address] [facility] Immature granulocytes/100 WB C Auto (Bld)Ordered By: Shannan Waldrop on 06-07-2025 Immature granulocytes/100 WBC (Bld) 0.300 % 0.0-0.[address] [facility] Comment on above: IG% - Immature Granu locytes (promyelocytes, myelocytes and metamyelocytes) > 1% indicates that a LEFT SHIFT is Present. Laboratory - Chemistry and C hemistry - challengeOrdered By: Shannan Waldrop on 06-07-2025 AST [Catalytic activity/Vol] 21 U/L <[address] [facility] MCV (mean corpuscular volume ) determinationOrdered By: Shannan Waldrop on 06-07-2025 MCV (RBC) [Entitic vol] 85.9 fL 81-99 [facility] Mean corpuscular hemoglobin (MCH) determinationOrdered By: Shannan Waldrop on 06-07-2025 MCH (RBC) [Entitic mass] 27.3 pg 27.0-32.[address] [facility] Mean corpuscular hemoglobin concentration (MCHC) determinationOrdered By: Shannan Waldrop on 06-07-2025 MCHC (RBC) [Mass/Vol] 31.8 g/dL Low 32-36 [facility] Mean platelet volume determi nationOrdered By: Shannan Waldrop on 06-07-2025 Platelet mean volume (Bld) [Entitic vol] 8.3 fL 6.2-12.[address] [facility] Monocyte percentageOrdered B y: Shannan Waldrop on 06-07-2025 Monocytes/100 WBC (Bld) 10.4 % High 0-10 [facility] Neutrophil percentageOrdered By: Shannan Waldrop on 06-07-2025 Neutrophils/100 WBC (Bld) 74.2 % High 47-[address] [facility] Nucleated red blood cell per centageOrdered By: Shannan Waldrop on 06-07-2025 Nucleated RBC/100 WBC (Bld) [Ratio] 0 % 0-[address] [facility] Oncology Visit Reporton 05-19 Oncology Visit Report Normal [facility] Phosphoruson 06-07-2025 Phosphate [Mass/Vol] 3.5 mg/dL Normal 2.7-4.5 [facility] Comment on above: Performed By: #### L 501.9520, L500.4050, L501.2300, L100.0100 ####[facility] [address] [place], [address] Platelet countOrdered By: Adriana Waldrop on 06-07-2025 Platelets (Bld) [#/Vol] 317 10*3/uL 150-[address] [facility] Potassium measurement (mass/ volume)Ordered By: Shannan Waldrop on 06-07-2025 Potassium (Unsp spec) [Mass/Vol] 4.4 mmol/L 3.3-5.[address] [facility] RBC Auto (Bld) [#/Vol]Ordere d By: Shannan Waldrop on 06-07-2025 RBC (Bld) [#/Vol] 4.03 10*6/uL Low 4.2-5.4 [facility] Serum creatinine measurement (mass/volume)Ordered By: Shannan Waldrop on 06-07-2025 Creatinine [Mass/Vol] 0.79 mg/dL 0.70-1.20 [facility] Serum globulin measurementOr dered By: Shannan Waldrop on 06-07-2025 Globulin (S) [Mass/Vol] 3.3 g/dL 2.2-4.2 [facility] Serum glucose measurement (m ass/volume)Ordered By: Shannan Waldrop on 06-07-2025 Glucose [Mass/Vol] 187 mg/dL High 70-99 [facility] Serum or plasma alanine amezquita otransferase (ALT) measurementOrdered By: Shannan Waldrop on 06-07-2025 ALT [Catalytic activity/Vol] 10 U/L <[address] [facility] Serum or plasma albumin joaquin urement (mass/volume)Ordered By: Shannan Waldrop on 06-07-2025 Albumin [Mass/Vol] 3.9 g/dL 3.4-4.8 [facility] Serum or plasma albumin/glob ulin mass ratioOrdered By: Shannan Waldrop on 06-07-2025 Albumin/Globulin [Mass ratio] 1.2 {ratio} 0.9-2.[address] [facility] Serum or plasma alkaline gumaro sphatase measurementOrdered By: Shannan Waldrop on 06-07-2025 ALP [Catalytic activity/Vol] 87 U/L 35-[address] [facility] Serum or plasma calcium joaquin urement (mass/volume)Ordered By: Shannan Waldrop on 06-07-2025 Calcium [Mass/Vol] 10.0 mg/dL 7.6-11.0 [facility] Serum or plasma urea nitroge n measurement (mass/volume)Ordered By: Shannan Waldrop on 06-07-2025 Urea nitrogen [Mass/Vol] 12 mg/dL 4-[address] [facility] Sodium levelOrdered By: Spring Waldrop on 06-07-2025 Sodium [Moles/Vol] 135 mmol/L 133-145 [facility] TSH DL <= 0.005 mIU/L QnOrde red By: Shannan Waldrop on 06-07-2025 TSH Qn 23.500 uIU/mL High 0.300-4.[address] [facility] Thyroid Stim Hormone (TSH)on 06-07-2025 TSH 23.500 uIU/mL High 0.300-4.[address] [facility] Comment on above: Performed By: #### L 501.9520, L500.4050, L501.2300, L100.0100 ####[facility] [address] [place], [place], [address] Total proteinOrdered By: Howard french Benjie on 06-07-2025 Protein [Mass/Vol] 7.2 g/dL 5.9-8.4 [facility] White blood cell (WBC) count Ordered By: Shannan Benjie on 06-07-2025 WBC (Bld) [#/Vol] 9.9 10*3/uL 4.4-11.0 [facility] MR/BMS.BVSon 06-01-2025 MR/BMS.BVS Normal [facility] Absolute lymphocyte countOrd ered By: Shannan Benjie on 05-17-2025 Lymphocytes Auto (Unsp spec) [#/Vol] 1.11 10*3/uL 0.83-4.[address] [facility] Anion gap in Serum or Plasma Ordered By: Springja Waldrop on 05-17-2025 Anion gap [Moles/Vol] 15 mmol/L 5-15 [facility] Automated lymphocyte count a s percentage of total leukocytesOrdered By: Springja Waldrop on 05-17-2025 Lymphocytes/100 WBC Auto (Unsp spec) 14.8 % Low 19-[address] [facility] BUN/creatinine ratioOrdered By: [facility] on 05-17-2025 Urea nitrogen/Creatinine [Mass ratio] 14.5 mg/mg 10-[address] [facility] Basophil percentageOrdered B y: Springja Waldrop on 05-17-2025 Basophils/100 WBC (Bld) 0.4 % 0-1 [facility] Bilirubin, totalOrdered By: Springja Waldrop on 05-17-2025 Bilirubin [Mass/Vol] 0.32 mg/dL 0.00-1.30 [facility] CBC W/Diff, Automatedon 04-20 Absolute Lymph 1.11 X10 3/uL Normal 0.83-4.[address] [facility] Comment on above: Performed By: #### L 501.9520, L100.0100, L500.4050, L501.2300 ####[facility] [address] [place], [address] Absolute Neut 5.5 X10 3/uL Normal 2.0-7.[address] [facility] Comment on above: Performed By: #### L 501.9520, L100.0100, L500.4050, L501.2300 ####[facility] [address] [place], [address] Basophils/100 WBC (Bld) 0.4 % Normal 0-1 [facility] Comment on above: Performed By: #### L 501.9520, L100.0100, L500.4050, L501.2300 ####[facility] [address] [place], [address] Eosinophils/100 WBC (Bld) 1.2 % Normal 0-[address] [facility] Comment on above: Performed By: #### L 501.9520, L100.0100, L500.4050, L501.2300 ####[facility] [address] [place], [address] Erythrocyte distribution width (RBC) [Ratio] 18.0 % High 11.6-14.[address] [facility] Comment on above: Performed By: #### L 501.9520, L100.0100, L500.4050, L501.2300 ####[facility] [address] [place], [address] Hematocrit (Bld) [Volume fraction] 34.3 % Low 37-[address] [facility] Comment on above: Performed By: #### L 501.9520, L100.0100, L500.4050, L501.2300 ####[facility] [address] [place], [address] Hemoglobin (Bld) [Mass/Vol] 10.8 g/dL Low 12.0-15.[address] [facility] Comment on above: Performed By: #### L 501.9520, L100.0100, L500.4050, L501.2300 ####[facility] [address] [place], [address] IG% 0.500 Normal 0.0-0.[address] [facility] Comment on above: Result Comment: IG% - Immature Granulocytes (promyelocytes, myelocytes andmetamyelocytes) > 1% indicates that a LEFT SHIFT is Present. Performed By: #### L 501.9520, L100.0100, L500.4050, L501.2300 ####[facility] [address] [place], [address] Lymphocytes/100 WBC (Bld) 14.8 % Low 19-[address] [facility] Comment on above: Performed By: #### L 501.9520, L100.0100, L500.4050, L501.2300 ####[facility] [address] [place], [address] MCH (RBC) [Entitic mass] 27.1 pg Normal 27.0-32.[address] [facility] Comment on above: Performed By: #### L 501.9520, L100.0100, L500.4050, L501.2300 ####[facility] [address] [place], [address] MCHC (RBC) [Mass/Vol] 31.5 g/dL Low 32-36 [facility] Comment on above: Performed By: #### L 501.9520, L100.0100, L500.4050, L501.2300 ####[facility] [address] [place], [address] MCV (RBC) [Entitic vol] 86.2 fL Normal 81-99 [facility] Comment on above: Performed By: #### L 501.9520, L100.0100, L500.4050, L501.2300 ####[facility] [address] [place], [address] Monocytes/100 WBC (Bld) 10.2 % High 0-10 [facility] Comment on above: Performed By: #### L 501.9520, L100.0100, L500.4050, L501.2300 ####[facility] [address] [place], [address] Neutrophils/100 WBC (Bld) 72.9 % High 47-[address] [facility] Comment on above: Performed By: #### L 501.9520, L100.0100, L500.4050, L501.2300 ####[facility] [address] [place], [address] Nucleated RBC (Bld) [#/Vol] 0 10*3/uL Normal 0-[address] [facility] Comment on above: Performed By: #### L 501.9520, L100.0100, L500.4050, L501.2300 ####[facility] [address] [place], [address] Platelet mean volume (Bld) [Entitic vol] 8.6 fL Normal 6.2-12.[address] [facility] Comment on above: Performed By: #### L 501.9520, L100.0100, L500.4050, L501.2300 ####[facility] [address] [place], [address] Platelets (Bld) [#/Vol] 315 10*3/uL Normal 150-[address] [facility] Comment on above: Performed By: #### L 501.9520, L100.0100, L500.4050, L501.2300 ####[facility] [address] [place], [address] RBC (Bld) [#/Vol] 3.98 10*6/uL Low 4.2-5.4 [facility] Comment on above: Performed By: #### L 501.9520, L100.0100, L500.4050, L501.2300 ####[facility] [address] [place], [address] RDW SD 56.9 fl High 35.1-43.[address] [facility] Comment on above: Performed By: #### L 501.9520, L100.0100, L500.4050, L501.2300 ####[facility] [address] [place], [address] WBC (Bld) [#/Vol] 7.5 10*3/uL Normal 4.4-11.0 [facility] Comment on above: Performed By: #### L 501.9520, L100.0100, L500.4050, L501.2300 ####[facility] [address] [place], [address] Carbon dioxide, total [Moles /volume] in Central venous bloodOrdered By: Shannan Waldrop on 05-17-2025 CO2 [Moles/Vol] 20.6 mmol/L Low 21.0-32.[address] [facility] Chloride assayOrdered By: Adriana Waldrop on 05-17-2025 Chloride [Moles/Vol] 102 mmol/L 98-108 [facility] Comprehensive Metabolic Prof ilon 05-17-2025 Albumin [Mass/Vol] 3.9 g/dL Normal 3.4-4.8 [facility] Comment on above: Performed By: #### L 501.9520, L100.0100, L500.4050, L501.2300 ####[facility] [address] [place], [address] Albumin/Globulin [Mass ratio] 1.3 {ratio} Normal 0.9-2.[address] [facility] Comment on above: Performed By: #### L 501.9520, L100.0100, L500.4050, L501.2300 ####[facility] [address] [place], [address] ALK PHOS 78 U/L Normal 35-[address] [facility] Comment on above: Performed By: #### L 501.9520, L100.0100, L500.4050, L501.2300 ####[facility] [address] [place], [address] ALT [Catalytic activity/Vol] 11 U/L Normal <=[address] [facility] Comment on above: Performed By: #### L 501.9520, L100.0100, L500.4050, L501.2300 ####[facility] [address] [place], [address] AST [Catalytic activity/Vol] 13 U/L Normal <=[address] [facility] Comment on above: Performed By: #### L 501.9520, L100.0100, L500.4050, L501.2300 ####[facility] [address] [place], [address] Bilirubin [Mass/Vol] 0.32 mg/dL Normal 0.00-1.30 [facility] Comment on above: Performed By: #### L 501.9520, L100.0100, L500.4050, L501.2300 ####[facility] [address] [place], [address] BUN/CRE 14.5 RATIO Normal 10-[address] [facility] Comment on above: Performed By: #### L 501.9520, L100.0100, L500.4050, L501.2300 ####[facility] [address] [place], [address] Calcium [Mass/Vol] 9.1 mg/dL Normal 7.6-11.0 [facility] Comment on above: Performed By: #### L 501.9520, L100.0100, L500.4050, L501.2300 ####[facility] [address] [place], [address] Chloride [Moles/Vol] 102 mmol/L Normal 98-108 [facility] Comment on above: Performed By: #### L 501.9520, L100.0100, L500.4050, L501.2300 ####[facility] [address] [place], [address] CO2 [Moles/Vol] 20.6 mmol/L Low 21.0-32.[address] [facility] Comment on above: Performed By: #### L 501.9520, L100.0100, L500.4050, L501.2300 ####[facility] [address] [place], [address] Creatinine [Mass/Vol] 0.73 mg/dL Normal 0.70-1.20 [facility] Comment on above: Performed By: #### L 501.9520, L100.0100, L500.4050, L501.2300 ####[facility] [address] [place], [address] ECRCL 64.95 ml/min Normal 50-[address] [facility] Comment on above: Performed By: #### L 501.9520, L100.0100, L500.4050, L501.2300 ####[facility] [address] [place], [address] GAP 15 Normal 5-[address] [facility] Comment on above: Performed By: #### L 501.9520, L100.0100, L500.4050, L501.2300 ####[facility] [address] [place], [address] GFR/1.73 sq M.predicted among non-blacks MDRD (S/P/Bld) [Vol rate/Area] 88 mL/min/{1.73_m2} Normal >60 [facility] Comment on above: Result Comment: mL/m in/1.73m2 CKD-EPI Creatinine Equation (2020) Performed By: #### L 501.9520, L100.0100, L500.4050, L501.2300 ####[facility] [address] [place], [address] Globulin (S) [Mass/Vol] 3.1 g/dL Normal 2.2-4.2 [facility] Comment on above: Performed By: #### L 501.9520, L100.0100, L500.4050, L501.2300 ####[facility] [address] [place], [address] Glucose [Mass/Vol] 187 mg/dL High 70-99 [facility] Comment on above: Performed By: #### L 501.9520, L100.0100, L500.4050, L501.2300 ####[facility] [address] [place], [address] Potassium [Moles/Vol] 4.2 mmol/L Normal 3.3-5.1 [facility] Comment on above: Performed By: #### L 501.9520, L100.0100, L500.4050, L501.2300 ####[facility] [address] [place], [address] Sodium [Moles/Vol] 137 mmol/L Normal 133-145 [facility] Comment on above: Performed By: #### L 501.9520, L100.0100, L500.4050, L501.2300 ####[facility] [address] [place], [address] T PROT 7.0 g/dL Normal 5.9-8.[address] [facility] Comment on above: Performed By: #### L 501.9520, L100.0100, L500.4050, L501.2300 ####[facility] [address] [place], [address] Urea nitrogen [Mass/Vol] 11 mg/dL Normal 4-[address] [facility] Comment on above: Performed By: #### L 501.9520, L100.0100, L500.4050, L501.2300 ####[facility] [address] [place], [address] Eosinophil percentageOrdered By: Shannan Waldrop on 05-17-2025 Eosinophils/100 WBC (Bld) 1.2 % 0-[address] [facility] Erythrocyte distribution wid th ratioOrdered By: Shannan Waldrop on 05-17-2025 Erythrocyte distribution width (RBC) [Ratio] 18.0 % High 11.6-14.[address] [facility] Erythrocyte distribution wid th standard deviationOrdered By: [facility] on 05-17-2025 Erythrocyte distribution width (RBC) [Ratio] 56.9 fl High 35.1-43.[address] [facility] Glomerular filtration rate ( GFR) estimation/1.73 sq m using serum, plasma, or whole bOrdered By: Shannan Walrdop on 05-17-2025 GFR/1.73 sq M.predicted among non-blacks MDRD (S/P/Bld) [Vol rate/Area] 88 mL/min/{1.73_m2} >60 [facility] Hematocrit Auto (Bld) [Volum e fraction]Ordered By: Shannan Waldrop on 05-17-2025 Hematocrit (Bld) [Volume fraction] 34.3 % Low 37-[address] [facility] Hemoglobin measurementOrdere d By: Shannan Waldrop on 05-17-2025 Hemoglobin (Bld) [Mass/Vol] 10.8 g/dL Low 12.0-15.[address] [facility] Immature granulocytes/100 WB C Auto (Bld)Ordered By: Shannan Waldrop on 05-17-2025 Immature granulocytes/100 WBC (Bld) 0.500 % 0.0-0.[address] [facility] MCV (mean corpuscular volume ) determinationOrdered By: Shannan Waldrop on 05-17-2025 MCV (RBC) [Entitic vol] 86.2 fL 81-99 [facility] Mean corpuscular hemoglobin (MCH) determinationOrdered By: Shannan Waldrop on 05-17-2025 MCH (RBC) [Entitic mass] 27.1 pg 27.0-32.[address] [facility] Monocyte percentageOrdered B y: Shannan Waldrop on 05-17-2025 Monocytes/100 WBC (Bld) 10.2 % High 0-10 [facility] Neutrophil percentageOrdered By: Shannan Waldrop on 05-17-2025 Neutrophils/100 WBC (Bld) 72.9 % High 47-[address] [facility] No Panel InformationOrdered By: Shannan Waldrop on 05-17-2025 13 U/L <[address] [facility] Oncology Visit Reporton 04-20 Oncology Visit Report Normal [facility] Phosphoruson 05-17-2025 Phosphate [Mass/Vol] 3.2 mg/dL Normal 2.7-4.5 [facility] Comment on above: Performed By: #### L 501.9520, L100.0100, L500.4050, L501.2300 ####[facility] [address] [place], [place], [address] Platelet countOrdered By: Adriana Waldrop on 05-17-2025 Platelets (Bld) [#/Vol] 315 10*3/uL 150-[address] [facility] Potassium measurement (mass/ volume)Ordered By: Shannan Waldrop on 05-17-2025 Potassium (Unsp spec) [Mass/Vol] 4.2 mmol/L 3.3-5.[address] [facility] RBC Auto (Bld) [#/Vol]Ordere d By: Shannan Waldrop on 05-17-2025 RBC (Bld) [#/Vol] 3.98 10*6/uL Low 4.2-5.4 [facility] Serum creatinine measurement (mass/volume)Ordered By: Shannan Waldrop on 05-17-2025 Creatinine [Mass/Vol] 0.73 mg/dL 0.70-1.20 [facility] Serum globulin measurementOr dered By: Shannan Waldrop on 05-17-2025 Globulin (S) [Mass/Vol] 3.1 g/dL 2.2-4.2 [facility] Serum glucose measurement (m ass/volume)Ordered By: Shannan Waldrop on 05-17-2025 Glucose [Mass/Vol] 187 mg/dL High 70-99 [facility] Serum or plasma alanine amezquita otransferase (ALT) measurementOrdered By: Shannan Waldrop on 05-17-2025 ALT [Catalytic activity/Vol] 11 U/L <[address] [facility] Serum or plasma albumin joaquin urement (mass/volume)Ordered By: Shannan Waldrop on 05-17-2025 Albumin [Mass/Vol] 3.9 g/dL 3.4-4.8 [facility] Serum or plasma albumin/glob ulin mass ratioOrdered By: Shannan Waldrop on 05-17-2025 Albumin/Globulin [Mass ratio] 1.3 {ratio} 0.9-2.[address] [facility] Serum or plasma alkaline gumaro sphatase measurementOrdered By: Shannan Waldrop on 05-17-2025 ALP [Catalytic activity/Vol] 78 U/L 35-[address] [facility] Serum or plasma calcium joaquin urement (mass/volume)Ordered By: Shannan Waldrop on 05-17-2025 Calcium [Mass/Vol] 9.1 mg/dL 7.6-11.0 [facility] Serum or plasma urea nitroge n measurement (mass/volume)Ordered By: Shannan Waldrop on 05-17-2025 Urea nitrogen [Mass/Vol] 11 mg/dL 4-[address] [facility] Sodium levelOrdered By: Spring Waldrop on 05-17-2025 Sodium [Moles/Vol] 137 mmol/L 133-145 [facility] TSH DL <= 0.005 mIU/L QnOrde red By: Shannan Waldrop on 05-17-2025 TSH Qn 12.700 uIU/mL High 0.300-4.[address] [facility] Thyroid Stim Hormone (TSH)on 05-17-2025 TSH 12.700 uIU/mL High 0.300-4.[address] [facility] Comment on above: Performed By: #### L 501.9520, L100.0100, L500.4050, L501.2300 ####[facility] [address] [place], [address] Total proteinOrdered By: Howard Loweryantelmo on 05-17-2025 Protein [Mass/Vol] 7.0 g/dL 5.9-8.4 [facility] White blood cell (WBC) count Ordered By: Shannan Benjie on 05-17-2025 WBC (Bld) [#/Vol] 7.5 10*3/uL 4.4-11.0 [facility] Absolute lymphocyte countOrd ered By: Shannan Benjie on 04-26-2025 Lymphocytes Auto (Unsp spec) [#/Vol] 1.17 10*3/uL 0.83-4.[address] [facility] Absolute neutrophil countOrd ered By: [facility] on 04-26-2025 Neutrophils (Bld) [#/Vol] 6.4 10*3/uL 2.0-7.[address] [facility] Anion gap in Serum or Plasma Ordered By: [facility] on 04-26-2025 Anion gap [Moles/Vol] 16 mmol/L High 5-15 [facility] Automated lymphocyte count a s percentage of total leukocytesOrdered By: [facility]ie on 04-26-2025 Lymphocytes/100 WBC Auto (Unsp spec) 13.4 % Low 19-[address] [facility] BUN/creatinine ratioOrdered By: Shannan Benjie on 04-26-2025 Urea nitrogen/Creatinine [Mass ratio] 14.0 mg/mg 10-[address] [facility] Basophil percentageOrdered B y: Shannan Benjie on 04-26-2025 Basophils/100 WBC (Bld) 0.6 % 0-1 [facility] Bilirubin, totalOrdered By: Shannan Benjie on 04-26-2025 Bilirubin [Mass/Vol] 0.32 mg/dL 0.00-1.30 [facility] CBC W/Diff, Automatedon 09 Absolute Lymph 1.17 X10 3/uL Normal 0.83-4.[address] [facility] Comment on above: Performed By: #### L 100.0100, L500.4050, L501.9520, L501.2300 ####[facility] [address] [place], [address] Absolute Neut 6.4 X10 3/uL Normal 2.0-7.[address] [facility] Comment on above: Performed By: #### L 100.0100, L500.4050, L501.9520, L501.2300 ####[facility] [address] [place], [address] Basophils/100 WBC (Bld) 0.6 % Normal 0-1 [facility] Comment on above: Performed By: #### L 100.0100, L500.4050, L501.9520, L501.2300 ####[facility] [address] [place], [address] Eosinophils/100 WBC (Bld) 1.0 % Normal 0-[address] [facility] Comment on above: Performed By: #### L 100.0100, L500.4050, L501.9520, L501.2300 ####[facility] [address] [place], [address] Erythrocyte distribution width (RBC) [Ratio] 19.4 % High 11.6-14.[address] [facility] Comment on above: Performed By: #### L 100.0100, L500.4050, L501.9520, L501.2300 ####[facility] [address] [place], [address] Hematocrit (Bld) [Volume fraction] 34.5 % Low 37-[address] [facility] Comment on above: Performed By: #### L 100.0100, L500.4050, L501.9520, L501.2300 ####[facility] [address] [place], [address] Hemoglobin (Bld) [Mass/Vol] 10.9 g/dL Low 12.0-15.[address] [facility] Comment on above: Performed By: #### L 100.0100, L500.4050, L501.9520, L501.2300 ####[facility] [address] [place], [address] IG% 0.500 Normal 0.0-0.[address] [facility] Comment on above: Result Comment: IG% - Immature Granulocytes (promyelocytes, myelocytes andmetamyelocytes) > 1% indicates that a LEFT SHIFT is Present. Performed By: #### L 100.0100, L500.4050, L501.9520, L501.2300 ####[facility] [address] [place], [address] Lymphocytes/100 WBC (Bld) 13.4 % Low 19-[address] [facility] Comment on above: Performed By: #### L 100.0100, L500.4050, L501.9520, L501.2300 ####[facility] [address] [place], [address] MCH (RBC) [Entitic mass] 27.3 pg Normal 27.0-32.[address] [facility] Comment on above: Performed By: #### L 100.0100, L500.4050, L501.9520, L501.2300 ####[facility] [address] [place], [address] MCHC (RBC) [Mass/Vol] 31.6 g/dL Low 32-36 [facility] Comment on above: Performed By: #### L 100.0100, L500.4050, L501.9520, L501.2300 ####[facility] [address] [place], [address] MCV (RBC) [Entitic vol] 86.5 fL Normal 81-99 [facility] Comment on above: Performed By: #### L 100.0100, L500.4050, L501.9520, L501.2300 ####[facility] [address] [place], [address] Monocytes/100 WBC (Bld) 11.3 % High 0-10 [facility] Comment on above: Performed By: #### L 100.0100, L500.4050, L501.9520, L501.2300 ####[facility] [address] [place], [address] Neutrophils/100 WBC (Bld) 73.2 % High 47-[address] [facility] Comment on above: Performed By: #### L 100.0100, L500.4050, L501.9520, L501.2300 ####[facility] [address] [place], [address] Nucleated RBC (Bld) [#/Vol] 0 10*3/uL Normal 0-[address] [facility] Comment on above: Performed By: #### L 100.0100, L500.4050, L501.9520, L501.2300 ####[facility] [address] [place], [address] Platelet mean volume (Bld) [Entitic vol] 8.6 fL Normal 6.2-12.[address] [facility] Comment on above: Performed By: #### L 100.0100, L500.4050, L501.9520, L501.2300 ####[facility] [address] [place], [address] Platelets (Bld) [#/Vol] 293 10*3/uL Normal 150-[address] [facility] Comment on above: Performed By: #### L 100.0100, L500.4050, L501.9520, L501.2300 ####[facility] [address] [place], [address] RBC (Bld) [#/Vol] 3.99 10*6/uL Low 4.2-5.4 [facility] Comment on above: Performed By: #### L 100.0100, L500.4050, L501.9520, L501.2300 ####[facility] [address] [place], [address] RDW SD 61.3 fl High 35.1-43.[address] [facility] Comment on above: Performed By: #### L 100.0100, L500.4050, L501.9520, L501.2300 ####[facility] [address] [place], [address] WBC (Bld) [#/Vol] 8.8 10*3/uL Normal 4.4-11.0 [facility] Comment on above: Performed By: #### L 100.0100, L500.4050, L501.9520, L501.2300 ####[facility] [address] [place], [address] Carbon dioxide, total [Moles /volume] in Central venous bloodOrdered By: Shannan Waldrop on 04-26-2025 CO2 [Moles/Vol] 19.6 mmol/L Low 21.0-32.[address] [facility] Chloride assayOrdered By: Adriana Waldrop on 04-26-2025 Chloride [Moles/Vol] 102 mmol/L 98-108 [facility] Comprehensive Metabolic Prof ilon 04-26-2025 Albumin [Mass/Vol] 4.2 g/dL Normal 3.4-4.8 [facility] Comment on above: Performed By: #### L 100.0100, L500.4050, L501.9520, L501.2300 ####[facility] [address] [place], [address] Albumin/Globulin [Mass ratio] 1.3 {ratio} Normal 0.9-2.[address] [facility] Comment on above: Performed By: #### L 100.0100, L500.4050, L501.9520, L501.2300 ####[facility] [address] [place], [address] ALK PHOS 80 U/L Normal 35-[address] [facility] Comment on above: Performed By: #### L 100.0100, L500.4050, L501.9520, L501.2300 ####[facility] [address] [place], [address] ALT [Catalytic activity/Vol] 6 U/L Normal <=[address] [facility] Comment on above: Performed By: #### L 100.0100, L500.4050, L501.9520, L501.2300 ####[facility] [address] [place], [address] AST [Catalytic activity/Vol] 18 U/L Normal <=[address] [facility] Comment on above: Performed By: #### L 100.0100, L500.4050, L501.9520, L501.2300 ####[facility] [address] [place], [address] Bilirubin [Mass/Vol] 0.32 mg/dL Normal 0.00-1.30 [facility] Comment on above: Performed By: #### L 100.0100, L500.4050, L501.9520, L501.2300 ####[facility] [address] [place], [address] BUN/CRE 14.0 RATIO Normal 10-[address] [facility] Comment on above: Performed By: #### L 100.0100, L500.4050, L501.9520, L501.2300 ####[facility] [facility] [address] [place], [address] Calcium [Mass/Vol] 9.3 mg/dL Normal 7.6-11.0 [facility] Comment on above: Performed By: #### L 100.0100, L500.4050, L501.9520, L501.2300 ####[facility] [address] [place], [address] Chloride [Moles/Vol] 102 mmol/L Normal 98-108 [facility] Comment on above: Performed By: #### L 100.0100, L500.4050, L501.9520, L501.2300 ####[facility] [address] [place], [address] CO2 [Moles/Vol] 19.6 mmol/L Low 21.0-32.[address] [facility] Comment on above: Performed By: #### L 100.0100, L500.4050, L501.9520, L501.2300 ####[facility] [address] [place], [address] Creatinine [Mass/Vol] 0.73 mg/dL Normal 0.70-1.20 [facility] Comment on above: Performed By: #### L 100.0100, L500.4050, L501.9520, L501.2300 ####[facility] [address] [place], [address] ECRCL 65.10 ml/min Normal 50-[address] [facility] Comment on above: Performed By: #### L 100.0100, L500.4050, L501.9520, L501.2300 ####[facility] [address] [place], [address] GAP 16 High 5-[address] [facility] Comment on above: Performed By: #### L 100.0100, L500.4050, L501.9520, L501.2300 ####[facility] [address] [place], [address] GFR/1.73 sq M.predicted among non-blacks MDRD (S/P/Bld) [Vol rate/Area] 89 mL/min/{1.73_m2} Normal >60 [facility] Comment on above: Result Comment: mL/m in/1.73m2 CKD-EPI Creatinine Equation (2020) Performed By: #### L 100.0100, L500.4050, L501.9520, L501.2300 ####[facility] [address] [place], [address] Globulin (S) [Mass/Vol] 3.1 g/dL Normal 2.2-4.2 [facility] Comment on above: Performed By: #### L 100.0100, L500.4050, L501.9520, L501.2300 ####[facility] [address] [place], [address] Glucose [Mass/Vol] 184 mg/dL High 70-99 [facility] Comment on above: Performed By: #### L 100.0100, L500.4050, L501.9520, L501.2300 ####[facility] [address] [place], [address] Potassium [Moles/Vol] 4.1 mmol/L Normal 3.3-5.1 [facility] Comment on above: Performed By: #### L 100.0100, L500.4050, L501.9520, L501.2300 ####[facility] [address] [place], [address] Sodium [Moles/Vol] 138 mmol/L Normal 133-145 [facility] Comment on above: Performed By: #### L 100.0100, L500.4050, L501.9520, L501.2300 ####[facility] [address] [place], [address] T PROT 7.3 g/dL Normal 5.9-8.[address] [facility] Comment on above: Performed By: #### L 100.0100, L500.4050, L501.9520, L501.2300 ####[facility] [address] [place], [address] Urea nitrogen [Mass/Vol] 10 mg/dL Normal 4-[address] [facility] Comment on above: Performed By: #### L 100.0100, L500.4050, L501.9520, L501.2300 ####[facility] [address] [place], [address] Eosinophil percentageOrdered By: [facility] Wal[facility] on 04-26-2025 Eosinophils/100 WBC (Bld) 1.0 % 0-[address] [facility] Erythrocyte distribution wid th ratioOrdered By: [facility] on 04-26-2025 Erythrocyte distribution width (RBC) [Ratio] 19.4 % High 11.6-14.[address] [facility] Erythrocyte distribution wid th standard deviationOrdered By: [facility] Wal[facility] on 04-26-2025 Erythrocyte distribution width (RBC) [Ratio] 61.3 fl High 35.1-43.[address] [facility] Glomerular filtration rate ( GFR) estimation/1.73 sq m using serum, plasma, or whole bOrdered By: [facility] Wal[facility] on 04-26-2025 GFR/1.73 sq M.predicted among non-blacks MDRD (S/P/Bld) [Vol rate/Area] 89 mL/min/{1.73_m2} >60 [facility] Comment on above: mL/min/1.73m2 CKD-EP I Creatinine Equation (2020) Hematocrit Auto (Bld) [Volum e fraction]Ordered By: Shannan Waldrop on 04-26-2025 Hematocrit (Bld) [Volume fraction] 34.5 % Low 37-[address] [facility] Hemoglobin measurementOrdere d By: Shannan Waldrop on 04-26-2025 Hemoglobin (Bld) [Mass/Vol] 10.9 g/dL Low 12.0-15.[address] [facility] Immature granulocytes/100 WB C Auto (Bld)Ordered By: Shannan Waldrop on 04-26-2025 Immature granulocytes/100 WBC (Bld) 0.500 % 0.0-0.[address] [facility] Comment on above: IG% - Immature Granu locytes (promyelocytes, myelocytes and metamyelocytes) > 1% indicates that a LEFT SHIFT is Present. L509.6001on 04-26-2025 CORTISOL 13.30 ug/dL Normal 6.02-18.[address] [facility] Comment on above: Performed By: #### L 509.6001, L501.5200, L506.0400 ####[facility] [address] [place], [place], [address] Laboratory - Chemistry and C hemistry - challengeOrdered By: Shannan Waldrop on 04-26-2025 AST [Catalytic activity/Vol] 18 U/L <[address] [facility] MCV (mean corpuscular volume ) determinationOrdered By: Shannan Waldrop on 04-26-2025 MCV (RBC) [Entitic vol] 86.5 fL 81-99 [facility] Magnesiumon 04-26-2025 Magnesium [Mass/Vol] 1.4 mg/dL Low 1.5-2.2 [facility] Comment on above: Performed By: #### L 509.6001, L501.5200, L506.0400 ####[facility] [address] [place], [place], [address] Magnesium measurement (mass/ volume)Ordered By: Shannan Waldrop on 04-26-2025 Magnesium (Unsp spec) [Mass/Vol] 1.4 mg/dL Low 1.5-2.[address] [facility] Mean corpuscular hemoglobin (MCH) determinationOrdered By: Shannan Waldrop on 04-26-2025 MCH (RBC) [Entitic mass] 27.3 pg 27.0-32.[address] [facility] Mean corpuscular hemoglobin concentration (MCHC) determinationOrdered By: Shannan Waldrop on 04-26-2025 MCHC (RBC) [Mass/Vol] 31.6 g/dL Low 32-36 [facility] Mean platelet volume determi nationOrdered By: Shannan Waldrop on 04-26-2025 Platelet mean volume (Bld) [Entitic vol] 8.6 fL 6.2-12.[address] [facility] Monocyte percentageOrdered B y: Shannan Waldrop on 04-26-2025 Monocytes/100 WBC (Bld) 11.3 % High 0-10 [facility] Neutrophil percentageOrdered By: Shannan Waldrop on 04-26-2025 Neutrophils/100 WBC (Bld) 73.2 % High 47-[address] [facility] No Panel InformationOrdered By: [facility] on 04-26-2025 18 U/L <[address] [facility] Nucleated red blood cell per centageOrdered By: [facility] on 04-26-2025 Nucleated RBC/100 WBC (Bld) [Ratio] 0 % 0-[address] [facility] Oncology Visit Reporton Oncology Visit Report Normal [facility] Phosphoruson 04-26-2025 Phosphate [Mass/Vol] 3.6 mg/dL Normal 2.7-4.5 [facility] Comment on above: Performed By: #### L 100.0100, L500.4050, L501.9520, L501.2300 ####[facility] [address] [place], [address] Platelet countOrdered By: Adriana Waldrop on 04-26-2025 Platelets (Bld) [#/Vol] 293 10*3/uL 150-[address] [facility] Potassium measurement (mass/ volume)Ordered By: Shannan Waldrop on 04-26-2025 Potassium (Unsp spec) [Mass/Vol] 4.1 mmol/L 3.3-5.[address] [facility] RBC Auto (Bld) [#/Vol]Ordere d By: Shannan Waldrop on 04-26-2025 RBC (Bld) [#/Vol] 3.99 10*6/uL Low 4.2-5.4 [facility] Serum creatinine measurement (mass/volume)Ordered By: Shannan Waldrop on 04-26-2025 Creatinine [Mass/Vol] 0.73 mg/dL 0.70-1.20 [facility] Serum globulin measurementOr dered By: Shannan Waldrop on 04-26-2025 Globulin (S) [Mass/Vol] 3.1 g/dL 2.2-4.2 [facility] Serum glucose measurement (m ass/volume)Ordered By: Shannan Waldrop on 04-26-2025 Glucose [Mass/Vol] 184 mg/dL High 70-99 [facility] Serum or plasma alanine amezquita otransferase (ALT) measurementOrdered By: Shannan Waldrop on 04-26-2025 ALT [Catalytic activity/Vol] 6 U/L <[address] [facility] Serum or plasma albumin joaquin urement (mass/volume)Ordered By: Shannan Waldrop on 04-26-2025 Albumin [Mass/Vol] 4.2 g/dL 3.4-4.8 [facility] Serum or plasma albumin/glob ulin mass ratioOrdered By: Shannan Waldrop on 04-26-2025 Albumin/Globulin [Mass ratio] 1.3 {ratio} 0.9-2.[address] [facility] Serum or plasma alkaline gumaro sphatase measurementOrdered By: Shannan Waldrop on 04-26-2025 ALP [Catalytic activity/Vol] 80 U/L 35-[address] [facility] Serum or plasma calcium joaquin urement (mass/volume)Ordered By: Shannan Waldrop on 04-26-2025 Calcium [Mass/Vol] 9.3 mg/dL 7.6-11.0 [facility] Serum or plasma cortisol byrce surement (mass/volume)Ordered By: Shannan Waldrop on 04-26-2025 Cortisol [Mass/Vol] 13.30 ug/dL 6.02-18.40 [facility] Serum or plasma urea nitroge n measurement (mass/volume)Ordered By: Shannan Waldrop on 04-26-2025 Urea nitrogen [Mass/Vol] 10 mg/dL 4-[address] [facility] Sodium levelOrdered By: Spring Waldrop on 04-26-2025 Sodium [Moles/Vol] 138 mmol/L 133-145 [facility] T4 Free Directon 04-26-2025 T4 FREE DIRECT 1.10 ng/dL Normal 0.76-1.[address] [facility] Comment on above: Performed By: #### L 509.6001, L501.5200, L506.0400 ####[facility] [address], [address] T4 freeOrdered By: Shannan Horne nori on 04-26-2025 Free T4 [Mass/Vol] 1.10 ng/dL 0.76-1.46 [facility] TSH DL <= 0.005 mIU/L QnOrde red By: Shannan Benjie on 04-26-2025 TSH Qn 13.100 uIU/mL High 0.300-4.[address] [facility] Thyroid Stim Hormone (TSH)on 04-26-2025 TSH 13.100 uIU/mL High 0.300-4.[address] [facility] Comment on above: Performed By: #### L 100.0100, L500.4050, L501.9520, L501.2300 ####[facility] [address] [place], [place], [id number] Total proteinOrdered By: Howard french Benjie on 04-26-2025 Protein [Mass/Vol] 7.3 g/dL 5.9-8.4 [facility] White blood cell (WBC) count Ordered By: Springja Waldrop on 04-26-2025 WBC (Bld) [#/Vol] 8.8 10*3/uL 4.4-11.0 [facility] Absolute lymphocyte countOrd ered By: Sharif Christianson on 04-21-2025 Lymphocytes Auto (Unsp spec) [#/Vol] 1.02 10*3/uL 0.83-4.[address] [facility] Absolute neutrophil countOrd ered By: Sharfi Christianson on 04-21-2025 Neutrophils (Bld) [#/Vol] 5.0 10*3/uL 2.0-7.[address] [facility] Anion gap in Serum or Plasma Ordered By: Sharif Christianson on 04-21-2025 Anion gap [Moles/Vol] 15 mmol/L 5-15 [facility] Automated lymphocyte count a s percentage of total leukocytesOrdered By: Sharif Christianson on 04-21-2025 Lymphocytes/100 WBC Auto (Unsp spec) 14.4 % Low 19-[address] [facility] BUN/creatinine ratioOrdered By: Sharif Christianson on 04-21-2025 Urea nitrogen/Creatinine [Mass ratio] 13.7 mg/mg 10-[address] [facility] Basophil percentageOrdered B y: Sharif Christianson on 04-21-2025 Basophils/100 WBC (Bld) 0.6 % 0-1 [facility] Bilirubin Test strip Ql (U)O rdered By: Sharif Christianson on 04-21-2025 Bilirubin Ql (U) Negative Negative [facility] Bilirubin, totalOrdered By: Sharif Christianson on 04-21-2025 Bilirubin [Mass/Vol] 0.24 mg/dL 0.00-1.30 [facility] CBC W/Diff, Automatedon Absolute Lymph 1.02 X10 3/uL Normal 0.83-4.[address] [facility] Comment on above: Order Comment: Order Date: 04/21/25Order Info: [id number] - CBCD Performed By: #### L 100.0100, L501.9520, L506.0400, L500.4050, L500.4100, L501.9985 ####[facility] [address] [facility] [place], [address] Absolute Neut 5.0 X10 3/uL Normal 2.0-7.[address] [facility] Comment on above: Order Comment: Order Date: 04/21/25Order Info: [id number] - CBCD Performed By: #### L 100.0100, L501.9520, L506.0400, L500.4050, L500.4100, L501.9985 ####[facility] [address] [place], [address] Basophils/100 WBC (Bld) 0.6 % Normal 0-1 [facility] Comment on above: Order Comment: Order Date: 04/21/25Order Info: [id number] - CBCD Performed By: #### L 100.0100, L501.9520, L506.0400, L500.4050, L500.4100, L501.9985 ####[facility] [address] [place], [address] Eosinophils/100 WBC (Bld) 1.4 % Normal 0-[address] [facility] Comment on above: Order Comment: Order Date: 04/21/25Order Info: [id number] - CBCD Performed By: #### L 100.0100, L501.9520, L506.0400, L500.4050, L500.4100, L501.9985 ####[facility] [address] [place], [address] Erythrocyte distribution width (RBC) [Ratio] 19.8 % High 11.6-14.[address] [facility] Comment on above: Order Comment: Order Date: 04/21/25Order Info: [id number] - CBCD Performed By: #### L 100.0100, L501.9520, L506.0400, L500.4050, L500.4100, L501.9985 ####[facility] [address] [place], [address] Hematocrit (Bld) [Volume fraction] 35.0 % Low 37-[address] [facility] Comment on above: Order Comment: Order Date: 04/21/25Order Info: [id number] - CBCD Performed By: #### L 100.0100, L501.9520, L506.0400, L500.4050, L500.4100, L501.9985 ####[facility] [address], [address] Hemoglobin (Bld) [Mass/Vol] 10.8 g/dL Low 12.0-15.[address] [facility] Comment on above: Order Comment: Order Date: 04/21/25Order Info: [id number] - CBCD Performed By: #### L 100.0100, L501.9520, L506.0400, L500.4050, L500.4100, L501.9985 ####[facility] [address], [address] IG% 0.400 Normal 0.0-0.[address] [facility] Comment on above: Order Comment: Order Date: 04/21/25Order Info: [id number] - CBCD Result Comment: IG% - Immature Granulocytes (promyelocytes, myelocytes andmetamyelocytes) > 1% indicates that a LEFT SHIFT is Present. Performed By: #### L 100.0100, L501.9520, L506.0400, L500.4050, L500.4100, L501.9985 ####[facility] [address], [address] Lymphocytes/100 WBC (Bld) 14.4 % Low 19-[address] [facility] Comment on above: Order Comment: Order Date: 04/21/25Order Info: 0184- - CBCD Performed By: #### L 100.0100, L501.9520, L506.0400, L500.4050, L500.4100, L501.9985 ####[facility] [address], [address] MCH (RBC) [Entitic mass] 26.8 pg Low 27.0-32.[address] [facility] Comment on above: Order Comment: Order Date: 04/21/25Order Info: 0184- - CBCD Performed By: #### L 100.0100, L501.9520, L506.0400, L500.4050, L500.4100, L501.9985 ####[facility] [address] [place], [address] MCHC (RBC) [Mass/Vol] 30.9 g/dL Low 32-36 [facility] Comment on above: Order Comment: Order Date: 04/21/25Order Info: [id number] - CBCD Performed By: #### L 100.0100, L501.9520, L506.0400, L500.4050, L500.4100, L501.9985 ####[facility] [address] [place], [address] MCV (RBC) [Entitic vol] 86.8 fL Normal 81-99 [facility] Comment on above: Order Comment: Order Date: 04/21/25Order Info: [id number] - CBCD Performed By: #### L 100.0100, L501.9520, L506.0400, L500.4050, L500.4100, L501.9985 ####[facility] [address] [place], [address] Monocytes/100 WBC (Bld) 13.1 % High 0-10 [facility] Comment on above: Order Comment: Order Date: 04/21/25Order Info: [id number] - CBCD Performed By: #### L 100.0100, L501.9520, L506.0400, L500.4050, L500.4100, L501.9985 ####[facility] [address], [address] Neutrophils/100 WBC (Bld) 70.1 % High 47-[address] [facility] Comment on above: Order Comment: Order Date: 04/21/25Order Info: [id number] - CBCD Performed By: #### L 100.0100, L501.9520, L506.0400, L500.4050, L500.4100, L501.9985 ####[facility] [address] [place], [address] Nucleated RBC (Bld) [#/Vol] 0 10*3/uL Normal 0-[address] [facility] Comment on above: Order Comment: Order Date: 04/21/25Order Info: [id number] - CBCD Performed By: #### L 100.0100, L501.9520, L506.0400, L500.4050, L500.4100, L501.9985 ####[facility] [address] [place], [address] Platelet mean volume (Bld) [Entitic vol] 9.0 fL Normal 6.2-12.[address] [facility] Comment on above: Order Comment: Order Date: 04/21/25Order Info: [id number] - CBCD Performed By: #### L 100.0100, L501.9520, L506.0400, L500.4050, L500.4100, L501.9985 ####[facility] [address] [place], [address] Platelets (Bld) [#/Vol] 317 10*3/uL Normal 150-[address] [facility] Comment on above: Order Comment: Order Date: 04/21/25Order Info: 018- - CBCD Performed By: #### L 100.0100, L501.9520, L506.0400, L500.4050, L500.4100, L501.9985 ####[facility] [address] [place], [address] RBC (Bld) [#/Vol] 4.03 10*6/uL Low 4.2-5.4 [facility] Comment on above: Order Comment: Order Date: 04/21/25Order Info: [id number]- - CBCD Performed By: #### L 100.0100, L501.9520, L506.0400, L500.4050, L500.4100, L501.9985 ####[facility] [address] [place], [address] RDW SD 62.4 fl High 35.1-43.[address] [facility] Comment on above: Order Comment: Order Date: 04/21/25Order Info: [id number] - CBCD Performed By: #### L 100.0100, L501.9520, L506.0400, L500.4050, L500.4100, L501.9985 ####[facility] [address], [address] WBC (Bld) [#/Vol] 7.1 10*3/uL Normal 4.4-11.0 [facility] Comment on above: Order Comment: Order Date: 04/21/25Order Info: [id number] - CBCD Performed By: #### L 100.0100, L501.9520, L506.0400, L500.4050, L500.4100, L501.9985 ####[facility] [address] [place], [address] Calculated very low density lipoprotein (VLDL) cholesterol measurementOrdered By: Sharif Christianson on 04-21-2025 Calculated very low density lipoprotein (VLDL) cholesterol measurement 23 mg/dL 5-[address] [facility] Carbon dioxide, total [Moles /volume] in Central venous bloodOrdered By: Sharif Christianson on 04-21-2025 CO2 [Moles/Vol] 20.1 mmol/L Low 21.0-32.[address] [facility] Chloride assayOrdered By: Yessenia Christianson on 04-21-2025 Chloride [Moles/Vol] 102 mmol/L 98-108 [facility] Comprehensive Metabolic Prof ilon 04-21-2025 Albumin [Mass/Vol] 3.9 g/dL Normal 3.4-4.8 [facility] Comment on above: Order Comment: Order Date: 04/21/25Order Info: [id number] - CMPOrder Info: [id number] - LIPIDOrder Info: [id number] - TSHOrder Info: [id number] - T4F Performed By: #### L 100.0100, L501.9520, L506.0400, L500.4050, L500.4100, L501.9985 ####[facility] [address], [address] Albumin/Globulin [Mass ratio] 1.3 {ratio} Normal 0.9-2.[address] [facility] Comment on above: Order Comment: Order Date: 04/21/25Order Info: [id number] - CMPOrder Info: [id number] - LIPIDOrder Info: [id number] - TSHOrder Info: 7 - T4F Performed By: #### L 100.0100, L501.9520, L506.0400, L500.4050, L500.4100, L501.9985 ####[facility] [address] [place], [place], [address] ALK PHOS 77 U/L Normal 35-[address] [facility] Comment on above: Order Comment: Order Date: 04/21/25Order Info: [id number] - CMPOrder Info: [id number] - LIPIDOrder Info: [id number] - TSHOrder Info: [id number] - T4F Performed By: #### L 100.0100, L501.9520, L506.0400, L500.4050, L500.4100, L501.9985 ####[facility] [address] [place], [place], [address] ALT [Catalytic activity/Vol] 10 U/L Normal <=[address] [facility] Comment on above: Order Comment: Order Date: 04/21/25Order Info: [id number]- - CMPOrder Info: - LIPIDOrder Info: [id number] - TSHOrder Info: 7 - T4F Performed By: #### L 100.0100, L501.9520, L506.0400, L500.4050, L500.4100, L501.9985 ####[facility] [address] [place], [place], [address] AST [Catalytic activity/Vol] 17 U/L Normal <=[address] [facility] Comment on above: Order Comment: Order Date: 04/21/25Order Info: 86-1 - CMPOrder Info: [id number] - LIPIDOrder Info: [id number] - TSHOrder Info: [id number] - T4F Performed By: #### L 100.0100, L501.9520, L506.0400, L500.4050, L500.4100, L501.9985 ####[facility] [address] [place], [address] Bilirubin [Mass/Vol] 0.24 mg/dL Normal 0.00-1.30 [facility] Comment on above: Order Comment: Order Date: 04/21/25Order Info: [id number] - CMPOrder Info: [id number] - LIPIDOrder Info: [id number] - TSHOrder Info: [id number] - T4F Performed By: #### L 100.0100, L501.9520, L506.0400, L500.4050, L500.4100, L501.9985 ####[facility] [address] [place], [address] BUN/CRE 13.7 RATIO Normal 10-[address] [facility] Comment on above: Order Comment: Order Date: 04/21/25Order Info: [id number] - CMPOrder Info: [id number] - LIPIDOrder Info: [id number] - TSHOrder Info: [id number] - T4F Performed By: #### L 100.0100, L501.9520, L506.0400, L500.4050, L500.4100, L501.9985 ####[facility] [address] [place], [address] Calcium [Mass/Vol] 8.9 mg/dL Normal 7.6-11.0 [facility] Comment on above: Order Comment: Order Date: 04/21/25Order Info: [id number] - CMPOrder Info: [id number] - LIPIDOrder Info: [id number] - TSHOrder Info: [id number] - T4F Performed By: #### L 100.0100, L501.9520, L506.0400, L500.4050, L500.4100, L501.9985 ####[facility] [address] [place], [address] Chloride [Moles/Vol] 102 mmol/L Normal 98-108 [facility] Comment on above: Order Comment: Order Date: 04/21/25Order Info: [id number] - CMPOrder Info: [id number] - LIPIDOrder Info: [id number] - TSHOrder Info: [id number] - T4F Performed By: #### L 100.0100, L501.9520, L506.0400, L500.4050, L500.4100, L501.9985 ####[facility] [address] [place], [address] CO2 [Moles/Vol] 20.1 mmol/L Low 21.0-32.[address] [facility] Comment on above: Order Comment: Order Date: 04/21/25Order Info: [id number] - CMPOrder Info: [id number] - LIPIDOrder Info: [id number] - TSHOrder Info: [id number] - T4F Performed By: #### L 100.0100, L501.9520, L506.0400, L500.4050, L500.4100, L501.9985 ####[facility] [address] [place], [address] Creatinine [Mass/Vol] 0.79 mg/dL Normal 0.70-1.20 [facility] Comment on above: Order Comment: Order Date: 04/21/25Order Info: [id number] - CMPOrder Info: [id number] - LIPIDOrder Info: [id number] - TSHOrder Info: [id number] - T4F Performed By: #### L 100.0100, L501.9520, L506.0400, L500.4050, L500.4100, L501.9985 ####[facility] [address] [place], [address] GAP 15 Normal 5-[address] [facility] Comment on above: Order Comment: Order Date: 04/21/25Order Info: [id number] - CMPOrder Info: [id number] - LIPIDOrder Info: [id number] - TSHOrder Info: [id number] - T4F Performed By: #### L 100.0100, L501.9520, L506.0400, L500.4050, L500.4100, L501.9985 ####[facility] [address], [address] GFR/1.73 sq M.predicted among non-blacks MDRD (S/P/Bld) [Vol rate/Area] 81 mL/min/{1.73_m2} Normal >60 [facility] Comment on above: Order Comment: Order Date: 04/21/25Order Info: 07- - CMPOrder Info: [id number] - LIPIDOrder Info: 3 - TSHOrder Info: 7 - T4F Result Comment: mL/m in/1.73m2 CKD-EPI Creatinine Equation (2020) Performed By: #### L 100.0100, L501.9520, L506.0400, L500.4050, L500.4100, L501.9985 ####[facility] [address] [place], [address] Globulin (S) [Mass/Vol] 3.1 g/dL Normal 2.2-4.2 [facility] Comment on above: Order Comment: Order Date: 04/21/25Order Info: 07- - CMPOrder Info: [id number] - LIPIDOrder Info: 3 - TSHOrder Info: 7 - T4F Performed By: #### L 100.0100, L501.9520, L506.0400, L500.4050, L500.4100, L501.9985 ####[facility] [address] [place], [address] Glucose [Mass/Vol] 150 mg/dL High 70-99 [facility] Comment on above: Order Comment: Order Date: 04/21/25Order Info: 07- - CMPOrder Info: [id number] - LIPIDOrder Info: 3 - TSHOrder Info: [id number] - T4F Performed By: #### L 100.0100, L501.9520, L506.0400, L500.4050, L500.4100, L501.9985 ####[facility] [address] [place], [address] Potassium [Moles/Vol] 4.2 mmol/L Normal 3.3-5.1 [facility] Comment on above: Order Comment: Order Date: 04/21/25Order Info: [id number] - CMPOrder Info: [id number] - LIPIDOrder Info: 3 - TSHOrder Info: [id number] - T4F Performed By: #### L 100.0100, L501.9520, L506.0400, L500.4050, L500.4100, L501.9985 ####[facility] [address] [place], [address] Sodium [Moles/Vol] 138 mmol/L Normal 133-145 [facility] Comment on above: Order Comment: Order Date: 04/21/25Order Info: [id number] - CMPOrder Info: [id number] - LIPIDOrder Info: 3 - TSHOrder Info: [id number] - T4F Performed By: #### L 100.0100, L501.9520, L506.0400, L500.4050, L500.4100, L501.9985 ####[facility] [address] [place], [address] T PROT 7.0 g/dL Normal 5.9-8.[address] [facility] Comment on above: Order Comment: Order Date: 04/21/25Order Info: [id number] - CMPOrder Info: [id number] - LIPIDOrder Info: [id number] - TSHOrder Info: [id number] - T4F Performed By: #### L 100.0100, L501.9520, L506.0400, L500.4050, L500.4100, L501.9985 ####[facility] [address] [place], [address] Urea nitrogen [Mass/Vol] 11 mg/dL Normal 4-[address] [facility] Comment on above: Order Comment: Order Date: 04/21/25Order Info: [id number] - CMPOrder Info: [id number] - LIPIDOrder Info: [id number] - TSHOrder Info: [id number] - T4F Performed By: #### L 100.0100, L501.9520, L506.0400, L500.4050, L500.4100, L501.9985 ####[facility] [address] [place], [address] Eosinophil percentageOrdered By: Sharif Christianson on 04-21-2025 Eosinophils/100 WBC (Bld) 1.4 % 0-[address] [facility] Erythrocyte distribution wid th ratioOrdered By: Sharif Christianson on 04-21-2025 Erythrocyte distribution width (RBC) [Ratio] 19.8 % High 11.6-14.[address] [facility] Erythrocyte distribution wid th standard deviationOrdered By: Sharif Christianson on 04-21-2025 Erythrocyte distribution width (RBC) [Ratio] 62.4 fl High 35.1-43.[address] [facility] Glomerular filtration rate ( GFR) estimation/1.73 sq m using serum, plasma, or whole bOrdered By: Sharif Christianson on 04-21-2025 GFR/1.73 sq M.predicted among non-blacks MDRD (S/P/Bld) [Vol rate/Area] 81 mL/min/{1.73_m2} >60 [facility] Comment on above: mL/min/1.73m2 CKD-EP I Creatinine Equation (2020) Hematocrit Auto (Bld) [Volum e fraction]Ordered By: Sharif Christianson on 04-21-2025 Hematocrit (Bld) [Volume fraction] 35.0 % Low 37-[address] [facility] Hemoglobin A1con 04-21-2025 HbA1c (Bld) [Mass fraction] 7.1 % High <=5.[address] [facility] Comment on above: Order Comment: Order Date: 04/21/25Order Info: [id number] - A1C Result Comment: Norm al < 5.7 % Prediabetic 5.7 - 6.4 % Diabetic >or= 6.5 % Please note range changes. Performed By: #### L 100.0100, L501.9520, L506.0400, L500.4050, L500.4100, L501.9985 ####[facility] [address] [place], [address] Hemoglobin A1c percentageOrd ered By: Sharif Christianson on 04-21-2025 HbA1c (Bld) [Mass fraction] 7.1 % High <5.[address] [facility] Comment on above: Normal < 5.7 % Predi abetic 5.7 - 6.4 % Diabetic >or= 6.5 % Please note range changes. Hemoglobin measurementOrdere d By: Sharif Christianson on 04-21-2025 Hemoglobin (Bld) [Mass/Vol] 10.8 g/dL Low 12.0-15.[address] [facility] Immature granulocytes/100 WB C Auto (Bld)Ordered By: Sharif Christianson on 04-21-2025 Immature granulocytes/100 WBC (Bld) 0.400 % 0.0-0.[address] [facility] Comment on above: IG% - Immature Granu locytes (promyelocytes, myelocytes and metamyelocytes) > 1% indicates that a LEFT SHIFT is Present. Ketones Test strip Ql (U)Ord ered By: Sharif Christianson on 04-21-2025 Ketones Ql (U) Negative Negative [facility] LDL calc ser/plasOrdered By: Sharif Christianson on 04-21-2025 Cholesterol in LDL [Mass/Vol] 32 mg/dL [facility] Comment on above: Sabnagiirm=951-402 m g/dL & Higher Qubc=536 mg/dL or greaterFriedwald Equation for LDL-C Laboratory - Chemistry and C hemistry - challengeOrdered By: Sharif Christianson on 04-21-2025 AST [Catalytic activity/Vol] 17 U/L <[address] [facility] Lipid Profileon 04-21-2025 CHOL:HDL 2.[address] [facility] Comment on above: Order Comment: Order Date: 04/21/25Order Info: [id number] - CMPOrder Info: [id number] - LIPIDOrder Info: [id number] - TSHOrder Info: [id number] - T4F Performed By: #### L 100.0100, L501.9520, L506.0400, L500.4050, L500.4100, L501.9985 ####[facility] [address] [place], [address] Cholesterol [Mass/Vol] 105 mg/dL Normal <=200 [facility] Comment on above: Order Comment: Order Date: 04/21/25Order Info: [id number] - CMPOrder Info: [id number] - LIPIDOrder Info: [id number] - TSHOrder Info: 7 - T4F Result Comment: Chol esterol level, Desirable <200 mg/dLBorderline high cholesterol 200-239 mg/dLHigh cholesterol >=240 mg/dLRecommendations of the NCEP Adult Treatment Panel for thefollowing risk-cutoff thresholds for the [place] [facility] centerulation. Performed By: #### L 100.0100, L501.9520, L506.0400, L500.4050, L500.4100, L501.9985 ####[facility] [address] [place], [address] Cholesterol in HDL [Mass/Vol] 50 mg/dL Normal [facility] Comment on above: Order Comment: Order Date: 04/21/25Order Info: [id number] - CMPOrder Info: [id number] - LIPIDOrder Info: 3 - TSHOrder Info: [id number] - T4F Result Comment: Ledy onal Cholesterol Education Program (NCEP) guidelines:<40 mg/dL: Low HDL-cholesterol (major risk factor for CHD)>= 60 mg/dL: High HDL-cholesterol (negative risk factor forCHD)HDL-cholesterol is affected by a number of factors, e.g.smoking, exercise, hormones, sex and age. Performed By: #### L 100.0100, L501.9520, L506.0400, L500.4050, L500.4100, L501.9985 ####[facility] [address] [place], [address] Cholesterol in LDL [Mass/Vol] 32 mg/dL Normal [facility] Comment on above: Order Comment: Order Date: 04/21/25Order Info: [id number] - CMPOrder Info: [id number] - LIPIDOrder Info: 3 - TSHOrder Info: 7 - T4F Result Comment: Bord kwoxti=905-832 mg/dL Higher Taxf=754 mg/dL or greaterFriedwald Equation for LDL-C Performed By: #### L 100.0100, L501.9520, L506.0400, L500.4050, L500.4100, L501.9985 ####[facility] [address] [place], [place], [address] Cholesterol in VLDL [Mass/Vol] 23 mg/dL Normal 5-[address] [facility] Comment on above: Order Comment: Order Date: 04/21/25Order Info: [id number] - CMPOrder Info: - LIPIDOrder Info: [id number] - TSHOrder Info: [id number] - T4F Performed By: #### L 100.0100, L501.9520, L506.0400, L500.4050, L500.4100, L501.9985 ####[facility] [address] [place], [place], [id number] Triglyceride [Mass/Vol] 113 mg/dL Normal [facility] Comment on above: Order Comment: Order Date: 04/21/25Order Info: [id number] - CMPOrder Info: - LIPIDOrder Info: 3 - TSHOrder Info: 7 - T4F Result Comment: The drugs N-Acetylcysteine and Metamizole may falselydepress this assay.Normal range: <150 mg/dLBorderline High: 150-199 mg/dLHigh: 200-499 mg/dLVery High: >500 mg/dL Performed By: #### L 100.0100, L501.9520, L506.0400, L500.4050, L500.4100, L501.9985 ####[facility] [address] [place], [address] MCV (mean corpuscular volume ) determinationOrdered By: Sharif Christianson on 04-21-2025 MCV (RBC) [Entitic vol] 86.8 fL 81-99 [facility] Mean corpuscular hemoglobin (MCH) determinationOrdered By: Sharif Christianson on 04-21-2025 MCH (RBC) [Entitic mass] 26.8 pg Low 27.0-32.[address] [facility] Mean corpuscular hemoglobin concentration (MCHC) determinationOrdered By: Sharif Christianson on 04-21-2025 MCHC (RBC) [Mass/Vol] 30.9 g/dL Low 32-36 [facility] Mean platelet volume determi nationOrdered By: Sharif Christianson on 04-21-2025 Platelet mean volume (Bld) [Entitic vol] 9.0 fL 6.2-12.[address] [facility] Microscopic analysis of urin e for red blood cells (RBC)Ordered By: Sharif Christianson on 04-21-2025 Microscopic analysis of urine for red blood cells (RBC) 0 SEEN /hpf 0-[address] [facility] Monocyte percentageOrdered B y: Sharif Christianson on 04-21-2025 Monocytes/100 WBC (Bld) 13.1 % High 0-10 [facility] Mucus LM Ql (Urine sed)Order ed By: Sharif Christianson on 04-21-2025 Mucus Ql (Urine sed) 0 SEEN /hpf [facility] Neutrophil percentageOrdered By: Sharif Christianson on 04-21-2025 Neutrophils/100 WBC (Bld) 70.1 % High 47-[address] [facility] Nitrite Test strip Ql (U)Ord ered By: Sharif Christianson on 04-21-2025 Nitrite Ql (U) Negative Negative [facility] No Panel InformationOrdered By: Sharif Christianson on 04-21-2025 17 U/L <[address] [facility] Nucleated red blood cell per centageOrdered By: Sharif Christianson on 04-21-2025 Nucleated RBC/100 WBC (Bld) [Ratio] 0 % 0-[address] [facility] Platelet countOrdered By: Yessenia Christianson on 04-21-2025 Platelets (Bld) [#/Vol] 317 10*3/uL 150-[address] [facility] Potassium measurement (mass/ volume)Ordered By: Sharif Christianson on 04-21-2025 Potassium (Unsp spec) [Mass/Vol] 4.2 mmol/L 3.3-5.[address] [facility] Protein Test strip Ql (U)Ord ered By: Sharif Christianson on 04-21-2025 Protein Ql (U) 30 mg/dl High Negative [facility] RBC Auto (Bld) [#/Vol]Ordere d By: Sharif Christianson on 04-21-2025 RBC (Bld) [#/Vol] 4.03 10*6/uL Low 4.2-5.4 [facility] Screening total cholesterol/ high density lipoprotein (HDL) cholesterol ratioOrdered By: Sharif Christianson on 04-21-2025 Cholesterol.total/Cholest irasema in HDL [Mass ratio] 2.10 {ratio} [facility] Serum creatinine measurement (mass/volume)Ordered By: Sharif Christianson on 04-21-2025 Creatinine [Mass/Vol] 0.79 mg/dL 0.70-1.20 [facility] Serum globulin measurementOr dered By: Sharif Christianson on 04-21-2025 Globulin (S) [Mass/Vol] 3.1 g/dL 2.2-4.2 [facility] Serum glucose measurement (m ass/volume)Ordered By: Sharif Christianson on 04-21-2025 Glucose [Mass/Vol] 150 mg/dL High 70-99 [facility] Serum or plasma alanine amezquita otransferase (ALT) measurementOrdered By: Sharif Christianson on 04-21-2025 ALT [Catalytic activity/Vol] 10 U/L <[address] [facility] Serum or plasma albumin joaquin urement (mass/volume)Ordered By: Sharif Christianson on 04-21-2025 Albumin [Mass/Vol] 3.9 g/dL 3.4-4.8 [facility] Serum or plasma albumin/glob ulin mass ratioOrdered By: Sharif Christianson on 04-21-2025 Albumin/Globulin [Mass ratio] 1.3 {ratio} 0.9-2.[address] [facility] Serum or plasma alkaline gumaro sphatase measurementOrdered By: Sharif Christianson on 04-21-2025 ALP [Catalytic activity/Vol] 77 U/L 35-[address] [facility] Serum or plasma calcium joaquin urement (mass/volume)Ordered By: Sharif Christianson on 04-21-2025 Calcium [Mass/Vol] 8.9 mg/dL 7.6-11.0 [facility] Serum or plasma cholesterol in HDL measurement (mass/volume)Ordered By: Sharif Christianson on 04-21-2025 Cholesterol in HDL [Mass/Vol] 50 mg/dL >[address] [facility] Comment on above: National Cholesterol Education Program (NCEP) guidelines:<40 mg/dL: Low HDL-cholesterol (major risk factor for CHD)>= 60 mg/dL: High HDL-cholesterol (negative risk factor for CHD)HDL-cholesterol is affected by a number of factors, e.g. smoking, exercise, hormones, sex and age. Serum or plasma cholesterol measurement (mass/volume)Ordered By: Sharif Christianson on 04-21-2025 Cholesterol [Mass/Vol] 105 mg/dL <201 [facility] Comment on above: Cholesterol level, D esirable <200 mg/dLBorderline high cholesterol 200-239 mg/dLHigh cholesterol >=240 mg/dLRecommendations of the NCEP Adult Treatment Panel for the following risk-cutoff thresholds for the [place] population. Serum or plasma urea nitroge n measurement (mass/volume)Ordered By: Sharif Christianson on 04-21-2025 Urea nitrogen [Mass/Vol] 11 mg/dL 4-[address] [facility] Sodium levelOrdered By: Sharif Christianson on 04-21-2025 Sodium [Moles/Vol] 138 mmol/L 133-145 [facility] Squamous epithelial cells de tection in urine sediment by light microscopyOrdered By: Sharif Christianson on 04-21-2025 Epithelial cells.squamous LM Ql (Urine sed) 0 SEEN /hpf 5-[address] [facility] T4 Free Directon 04-21-2025 T4 FREE DIRECT 1.20 ng/dL Normal 0.76-1.[address] [facility] Comment on above: Order Comment: Order Date: 04/21/25Order Info: [id number] - CMPOrder Info: [id number] - LIPIDOrder Info: [id number] - TSHOrder Info: [id number] - T4F Performed By: #### L 100.0100, L501.9520, L506.0400, L500.4050, L500.4100, L501.9985 ####[facility] [address] [place], [place], [id number] T4 freeOrdered By: Sharif moreira on 04-21-2025 Free T4 [Mass/Vol] 1.20 ng/dL 0.76-1.46 [facility] TSH DL <= 0.005 mIU/L QnOrde red By: Sharif Christianson on 04-21-2025 TSH Qn 18.000 uIU/mL High 0.300-4.[address] [facility] Thyroid Stim Hormone (TSH)on 04-21-2025 TSH 18.000 uIU/mL High 0.300-4.[address] [facility] Comment on above: Order Comment: Order Date: 04/21/25Order Info: [id number] - CMPOrder Info: [id number] - LIPIDOrder Info: [id number] - TSHOrder Info: [id number] - T4F Performed By: #### L 100.0100, L501.9520, L506.0400, L500.4050, L500.4100, L501.9985 ####[facility] [address] [place], [address] Total proteinOrdered By: Link Christianson on 04-21-2025 Protein [Mass/Vol] 7.0 g/dL 5.9-8.4 [facility] Triglycerides measurementOrd ered By: Sharif Christianson on 04-21-2025 Triglyceride [Mass/Vol] 113 mg/dL <199 [facility] Comment on above: The drugs N-Acetylcy steine and Metamizole may falsely depress this assay. Normal range: <150 mg/dLBorderline High: 150-199 mg/dLHigh: 200-499 mg/dLVery High: >500 mg/dL Urinalysis, Completeon 04-21 BACTERIA 0 SEEN Normal None Seen [facility] Comment on above: Order Comment: Urine , Random Performed By: #### L 400.0001 ####[facility] [address] [place], [address] EPI,SQUAMOUS 0 SEEN Normal 5-[address] [facility] Comment on above: Order Comment: Urine , Random Performed By: #### L 400.0001 ####[facility] [address] [place], [address] Mucus Ql (Urine sed) 0 SEEN Normal [facility] Comment on above: Order Comment: Urine , Random Performed By: #### L 400.0001 ####[facility] [address] [place], [address] RBC 0 SEEN Normal 0-[address] [facility] Comment on above: Order Comment: Urine , Random Performed By: #### L 400.0001 ####[facility] [address] [place], [address] WBC 0 SEEN Normal 0-[address] [facility] Comment on above: Order Comment: Urine , Random Performed By: #### L 400.0001 ####[facility] [address] [place], [address] Urine clarityOrdered By: Link Christianson on 04-21-2025 Clarity (U) Clear Clear [facility] Urine color determinationOrd ered By: Sharif Christianson on 04-21-2025 Color (U) Yellow Yellow [facility] Urine glucose detectionOrder ed By: Sharif Christianson on 04-21-2025 Glucose Ql (U) Normal mg/dl Normal [facility] Urine leukocyte esterase det ection by dipstickOrdered By: Sharif Christianson on 04-21-2025 Leukocyte esterase Test strip Ql (U) 25 /ul High Negative [facility] Urine pHOrdered By: Sharif brasher on 04-21-2025 pH (U) 5.0 [pH] 5.0 - 8.[address] [facility] Urine sediment bacteria coun t by microscopy (number/high power field)Ordered By: Sharif Christianson on 04-21-2025 Bacteria LM.HPF (Urine sed) [#/Area] 0 /[HPF] None Seen [facility] Urine specific gravity measu rementOrdered By: Sharif Christianson on 04-21-2025 Specific gravity (U) [Rel density] 1.020 1.002-1.[address] [facility] Urine urobilinogen measureme ntOrdered By: Sharif Christianson on 04-21-2025 Urobilinogen Ql (U) Normal mg/dl Normal [facility] White blood cell (WBC) count Ordered By: Sharif Christianson on 04-21-2025 WBC (Bld) [#/Vol] 7.1 10*3/uL 4.4-11.0 [facility] White blood cell countOrdere d By: Sharif Christianson on 04-21-2025 White blood cell count 0 SEEN /hpf 0-5 [facility] Absolute lymphocyte countOrd ered By: Shannan Waldrop on 04-05-2025 Lymphocytes Auto (Unsp spec) [#/Vol] 1.37 10*3/uL 0.83-4.[address] [facility] Absolute neutrophil countOrd ered By: [facility] on 04-05-2025 Neutrophils (Bld) [#/Vol] 6.5 10*3/uL 2.0-7.[address] [facility] Anion gap in Serum or Plasma Ordered By: Shannan Waldrop on 04-05-2025 Anion gap [Moles/Vol] 18 mmol/L High 5-15 [facility] Automated lymphocyte count a s percentage of total leukocytesOrdered By: Shannan Waldrop on 04-05-2025 Lymphocytes/100 WBC Auto (Unsp spec) 15.1 % Low 19-[address] [facility] BUN/creatinine ratioOrdered By: [facility] Waldorp on 04-05-2025 Urea nitrogen/Creatinine [Mass ratio] 15.6 mg/mg 10-[address] [facility] Basophil percentageOrdered B y: Shannan Waldrop on 04-05-2025 Basophils/100 WBC (Bld) 0.3 % 0-1 [facility] Bilirubin, totalOrdered By: Shannan Waldrop on 04-05-2025 Bilirubin [Mass/Vol] 0.29 mg/dL 0.00-1.30 [facility] CBC W/Diff, AutomatedOrdered By: Shannan Waldrop on 04-05-2025 Anisocytosis Ql (Bld) 1+ Normal [facility] Comment on above: Performed By: #### L 501.2300, L100.0100, L501.9520, L500.4050 ####[facility] [address] [place], [address] CTA Abd w/Runoff W/WO Contra ston 04-05-2025 CTA Abd w/Runoff W/WO Contrast Normal [facility] Carbon dioxide, total [Moles /volume] in Central venous bloodOrdered By: Shannan Waldrop on 04-05-2025 CO2 [Moles/Vol] 19.3 mmol/L Low 21.0-32.[address] [facility] Cardiology Visit Reporton Cardiology Visit Report Normal [facility] Chloride assayOrdered By: Adriana Waldrop on 04-05-2025 Chloride [Moles/Vol] 100 mmol/L 98-108 [facility] Comprehensive Metabolic Prof ilon 04-05-2025 Albumin [Mass/Vol] 4.0 g/dL Normal 3.4-4.8 [facility] Comment on above: Performed By: #### L 501.2300, L100.0100, L501.9520, L500.4050 ####[facility] [address] [place], [address] Albumin/Globulin [Mass ratio] 1.4 {ratio} Normal 0.9-2.[address] [facility] Comment on above: Performed By: #### L 501.2300, L100.0100, L501.9520, L500.4050 ####[facility] [address] [place], [address] ALK PHOS 73 U/L Normal 35-[address] [facility] Comment on above: Performed By: #### L 501.2300, L100.0100, L501.9520, L500.4050 ####[facility] [address] [place], [address] ALT [Catalytic activity/Vol] 9 U/L Normal <=[address] [facility] Comment on above: Performed By: #### L 501.2300, L100.0100, L501.9520, L500.4050 ####[facility] [address] [place], [address] AST [Catalytic activity/Vol] 17 U/L Normal <=[address] [facility] Comment on above: Performed By: #### L 501.2300, L100.0100, L501.9520, L500.4050 ####[facility] [address] [place], [address] Bilirubin [Mass/Vol] 0.29 mg/dL Normal 0.00-1.30 [facility] Comment on above: Performed By: #### L 501.2300, L100.0100, L501.9520, L500.4050 ####[facility] [address] [place], [address] BUN/CRE 15.6 RATIO Normal 10-[address] [facility] Comment on above: Performed By: #### L 501.2300, L100.0100, L501.9520, L500.4050 ####[facility] [address] [place], [address] Calcium [Mass/Vol] 9.3 mg/dL Normal 7.6-11.0 [facility] Comment on above: Performed By: #### L 501.2300, L100.0100, L501.9520, L500.4050 ####[facility] [address] [place], [address] Chloride [Moles/Vol] 100 mmol/L Normal 98-108 [facility] Comment on above: Performed By: #### L 501.2300, L100.0100, L501.9520, L500.4050 ####[facility] [address] [place], [address] CO2 [Moles/Vol] 19.3 mmol/L Low 21.0-32.[address] [facility] Comment on above: Performed By: #### L 501.2300, L100.0100, L501.9520, L500.4050 ####[facility] [address] [place], [address] Creatinine [Mass/Vol] 0.74 mg/dL Normal 0.70-1.20 [facility] Comment on above: Performed By: #### L 501.2300, L100.0100, L501.9520, L500.4050 ####[facility] [address] [place], [address] ECRCL 64.88 ml/min Normal 50-[address] [facility] Comment on above: Performed By: #### L 501.2300, L100.0100, L501.9520, L500.4050 ####[facility] [address] [place], [address] GAP 18 High 5-[address] [facility] Comment on above: Performed By: #### L 501.2300, L100.0100, L501.9520, L500.4050 ####[facility] [address] [place], [address] GFR/1.73 sq M.predicted among non-blacks MDRD (S/P/Bld) [Vol rate/Area] 87 mL/min/{1.73_m2} Normal >60 [facility] Comment on above: Result Comment: mL/m in/1.73m2 CKD-EPI Creatinine Equation (2020) Performed By: #### L 501.2300, L100.0100, L501.9520, L500.4050 ####[facility] [address] [place], [address] Globulin (S) [Mass/Vol] 2.9 g/dL Normal 2.2-4.2 [facility] Comment on above: Performed By: #### L 501.2300, L100.0100, L501.9520, L500.4050 ####[facility] [address] [place], [address] Glucose [Mass/Vol] 158 mg/dL High 70-99 [facility] Comment on above: Performed By: #### L 501.2300, L100.0100, L501.9520, L500.4050 ####[facility] [address] [place], [address] Potassium [Moles/Vol] 4.5 mmol/L Normal 3.3-5.1 [facility] Comment on above: Performed By: #### L 501.2300, L100.0100, L501.9520, L500.4050 ####[facility] [address] [place], [address] Sodium [Moles/Vol] 137 mmol/L Normal 133-145 [facility] Comment on above: Performed By: #### L 501.2300, L100.0100, L501.9520, L500.4050 ####[facility] [address] [place], [address] T PROT 6.8 g/dL Normal 5.9-8.[address] [facility] Comment on above: Performed By: #### L 501.2300, L100.0100, L501.9520, L500.4050 ####[facility] [address] [place], [address] Urea nitrogen [Mass/Vol] 12 mg/dL Normal 4-[address] [facility] Comment on above: Performed By: #### L 501.2300, L100.0100, L501.9520, L500.4050 ####[facility] [address] [place], [address] Eosinophil percentageOrdered By: Shannan Waldrop on 04-05-2025 Eosinophils/100 WBC (Bld) 1.3 % 0-[address] [facility] Erythrocyte distribution wid th ratioOrdered By: [facility] on 04-05-2025 Erythrocyte distribution width (RBC) [Ratio] 20.9 % High 11.6-14.[address] [facility] Erythrocyte distribution wid th standard deviationOrdered By: [facility] Waldrop on 04-05-2025 Erythrocyte distribution width (RBC) [Ratio] 66.0 fl High 35.1-43.[address] [facility] Glomerular filtration rate ( GFR) estimation/1.73 sq m using serum, plasma, or whole bOrdered By: [facility] Waldrop on 04-05-2025 GFR/1.73 sq M.predicted among non-blacks MDRD (S/P/Bld) [Vol rate/Area] 87 mL/min/{1.73_m2} >60 [facility] Comment on above: mL/min/1.73m2 CKD-EP I Creatinine Equation (2020) Hematocrit Auto (Bld) [Volum e fraction]Ordered By: Shannan Waldrop on 04-05-2025 Hematocrit (Bld) [Volume fraction] 33.9 % Low 37-[address] [facility] Hemoglobin measurementOrdere d By: Shannan Waldrop on 04-05-2025 Hemoglobin (Bld) [Mass/Vol] 10.5 g/dL Low 12.0-15.[address] [facility] Immature granulocytes/100 WB C Auto (Bld)Ordered By: Shannan Waldrop on 04-05-2025 Immature granulocytes/100 WBC (Bld) 0.500 % 0.0-0.[address] [facility] Comment on above: IG% - Immature Granu locytes (promyelocytes, myelocytes and metamyelocytes) > 1% indicates that a LEFT SHIFT is Present. Laboratory - Chemistry and C hemistry - challengeOrdered By: Shannan Waldrop on 04-05-2025 AST [Catalytic activity/Vol] 17 U/L <[address] [facility] MCV (mean corpuscular volume ) determinationOrdered By: Shannan Waldrop on 04-05-2025 MCV (RBC) [Entitic vol] 86.7 fL 81-99 [facility] Mean corpuscular hemoglobin (MCH) determinationOrdered By: Shannan Waldrop on 04-05-2025 MCH (RBC) [Entitic mass] 26.9 pg Low 27.0-32.[address] [facility] Mean corpuscular hemoglobin concentration (MCHC) determinationOrdered By: Shannan Waldrop on 04-05-2025 MCHC (RBC) [Mass/Vol] 31.0 g/dL Low 32-36 [facility] Mean platelet volume determi nationOrdered By: Shannan Waldrop on 04-05-2025 Platelet mean volume (Bld) [Entitic vol] 8.8 fL 6.2-12.[address] [facility] Monocyte percentageOrdered B y: Shannan Waldrop on 04-05-2025 Monocytes/100 WBC (Bld) 11.5 % High 0-10 [facility] Neutrophil percentageOrdered By: Shannan Waldrop on 04-05-2025 Neutrophils/100 WBC (Bld) 71.3 % High 47-[address] [facility] No Panel InformationOrdered By: Shannan Waldrop on 04-05-2025 1+ [facility] Nucleated red blood cell per centageOrdered By: Shannan Waldrop on 04-05-2025 Nucleated RBC/100 WBC (Bld) [Ratio] 0 % 0-[address] [facility] Oncology Visit Reporton 03-18 Oncology Visit Report Normal [facility] Phosphoruson 04-05-2025 Phosphate [Mass/Vol] 3.6 mg/dL Normal 2.7-4.5 [facility] Comment on above: Performed By: #### L 501.2300, L100.0100, L501.9520, L500.4050 ####[facility] [address] [place], [address] Platelet countOrdered By: [place]ana Waldrop on 04-05-2025 Platelets (Bld) [#/Vol] 288 10*3/uL 150-[address] [facility] Potassium measurement (mass/ volume)Ordered By: Shannan Waldrop on 04-05-2025 Potassium (Unsp spec) [Mass/Vol] 4.5 mmol/L 3.3-5.[address] [facility] RBC Auto (Bld) [#/Vol]Ordere d By: Shannan Waldrop on 04-05-2025 RBC (Bld) [#/Vol] 3.91 10*6/uL Low 4.2-5.4 [facility] Serum creatinine measurement (mass/volume)Ordered By: Shannan Waldrop on 04-05-2025 Creatinine [Mass/Vol] 0.74 mg/dL 0.70-1.20 [facility] Serum globulin measurementOr dered By: Shannan Waldrop on 04-05-2025 Globulin (S) [Mass/Vol] 2.9 g/dL 2.2-4.2 [facility] Serum glucose measurement (m ass/volume)Ordered By: Shannan Waldrop on 04-05-2025 Glucose [Mass/Vol] 158 mg/dL High 70-99 [facility] Serum or plasma alanine amezquita otransferase (ALT) measurementOrdered By: Shannan Waldrop on 04-05-2025 ALT [Catalytic activity/Vol] 9 U/L <[address] [facility] Serum or plasma albumin joaquin urement (mass/volume)Ordered By: Shannan Waldrop on 04-05-2025 Albumin [Mass/Vol] 4.0 g/dL 3.4-4.8 [facility] Serum or plasma albumin/glob ulin mass ratioOrdered By: Shannan Waldrop on 04-05-2025 Albumin/Globulin [Mass ratio] 1.4 {ratio} 0.9-2.[address] [facility] Serum or plasma alkaline gumaro sphatase measurementOrdered By: Shannan Waldrop on 04-05-2025 ALP [Catalytic activity/Vol] 73 U/L 35-[address] [facility] Serum or plasma calcium joaquin urement (mass/volume)Ordered By: Shannan Waldrop on 04-05-2025 Calcium [Mass/Vol] 9.3 mg/dL 7.6-11.0 [facility] Serum or plasma urea nitroge n measurement (mass/volume)Ordered By: Shannan Waldrop on 04-05-2025 Urea nitrogen [Mass/Vol] 12 mg/dL 4-[address] [facility] Sodium levelOrdered By: Spring peres Benjie on 04-05-2025 Sodium [Moles/Vol] 137 mmol/L 133-145 [facility] TSH DL <= 0.005 mIU/L QnOrde red By: Springja Waldrop on 04-05-2025 TSH Qn 38.500 uIU/mL High 0.300-4.[address] [facility] Thyroid Stim Hormone (TSH)on 04-05-2025 TSH 38.500 uIU/mL High 0.300-4.[address] [facility] Comment on above: Performed By: #### L 501.2300, L100.0100, L501.9520, L500.4050 ####[facility] [address] [place], [address] Total proteinOrdered By: Howard french Benjie on 04-05-2025 Protein [Mass/Vol] 6.8 g/dL 5.9-8.4 [facility] White blood cell (WBC) count Ordered By: Springja Waldrop on 04-05-2025 WBC (Bld) [#/Vol] 9.1 10*3/uL 4.4-11.0 [facility] CT Chest AND Abd W/ Contrast on 03-28-2025 CT Chest AND Abd W/ Contrast Normal [facility] Absolute lymphocyte countOrd ered By: Shannan Waldrop on 03-15-2025 Lymphocytes Auto (Unsp spec) [#/Vol] 1.05 10*3/uL 0.83-4.[address] [facility] Absolute neutrophil countOrd ered By: Shannan Waldrop on 03-15-2025 Neutrophils (Bld) [#/Vol] 5.3 10*3/uL 2.0-7.[address] [facility] Anion gap in Serum or Plasma Ordered By: Shannan Waldrop on 03-15-2025 Anion gap [Moles/Vol] 15 mmol/L 5-15 [facility] Automated lymphocyte count a s percentage of total leukocytesOrdered By: Shannan Waldrop on 03-15-2025 Lymphocytes/100 WBC Auto (Unsp spec) 14.0 % Low 19-[address] [facility] BUN/creatinine ratioOrdered By: Shannan Waldrop on 03-15-2025 Urea nitrogen/Creatinine [Mass ratio] 9.3 mg/mg Low 10-[address] [facility] Basophil percentageOrdered B y: Shannan Waldrop on 03-15-2025 Basophils/100 WBC (Bld) 0.5 % 0-1 [facility] Bilirubin, totalOrdered By: Shannan Waldrop on 03-15-2025 Bilirubin [Mass/Vol] 0.28 mg/dL 0.00-1.30 [facility] CBC W/Diff, Automatedon 02-16 Anisocytosis Ql (Bld) 1+ Normal [facility] Comment on above: Performed By: #### L 100.0100, L500.4050, L501.9520, L501.2300 ####[facility] [address] [place], [address] MACROCYTOSIS 1+ Normal [facility] Comment on above: Performed By: #### L 100.0100, L500.4050, L501.9520, L501.2300 ####[facility] [address] [place], [address] OVALOCYTE 1+ Normal [facility] Comment on above: Performed By: #### L 100.0100, L500.4050, L501.9520, L501.2300 ####[facility] [address] [place], [address] PLT EST A Normal ADEQ [facility] Comment on above: Performed By: #### L 100.0100, L500.4050, L501.9520, L501.2300 ####[facility] [address] [place], [address] Carbon dioxide, total [Moles /volume] in Central venous bloodOrdered By: Shannan Waldrop on 03-15-2025 CO2 [Moles/Vol] 20.0 mmol/L Low 21.0-32.[address] [facility] Chloride assayOrdered By: [place] Waldrop on 03-15-2025 Chloride [Moles/Vol] 102 mmol/L 98-108 [facility] Comprehensive Metabolic Prof ilon 03-15-2025 Albumin [Mass/Vol] 4.0 g/dL Normal 3.4-4.8 [facility] Comment on above: Performed By: #### L 100.0100, L500.4050, L501.9520, L501.2300 ####[facility] [address] [place], [address] Albumin/Globulin [Mass ratio] 1.4 {ratio} Normal 0.9-2.[address] [facility] Comment on above: Performed By: #### L 100.0100, L500.4050, L501.9520, L501.2300 ####[facility] [address] [place], [address] ALK PHOS 74 U/L Normal 35-[address] [facility] Comment on above: Performed By: #### L 100.0100, L500.4050, L501.9520, L501.2300 ####[facility] [address] [place], [address] ALT [Catalytic activity/Vol] 9 U/L Normal <=[address] [facility] Comment on above: Performed By: #### L 100.0100, L500.4050, L501.9520, L501.2300 ####[facility] [address] [place], [address] AST [Catalytic activity/Vol] 18 U/L Normal <=[address] [facility] Comment on above: Performed By: #### L 100.0100, L500.4050, L501.9520, L501.2300 ####[facility] [address] [place], [address] Bilirubin [Mass/Vol] 0.28 mg/dL Normal 0.00-1.30 [facility] Comment on above: Performed By: #### L 100.0100, L500.4050, L501.9520, L501.2300 ####[facility] [address] [place], [address] BUN/CRE 9.3 RATIO Low 10-[address] [facility] Comment on above: Performed By: #### L 100.0100, L500.4050, L501.9520, L501.2300 ####[facility] [address] [place], [address] Calcium [Mass/Vol] 8.9 mg/dL Normal 7.6-11.0 [facility] Comment on above: Performed By: #### L 100.0100, L500.4050, L501.9520, L501.2300 ####[facility] [address] [place], [address] Chloride [Moles/Vol] 102 mmol/L Normal 98-108 [facility] Comment on above: Performed By: #### L 100.0100, L500.4050, L501.9520, L501.2300 ####[facility] [address] [place], [address] CO2 [Moles/Vol] 20.0 mmol/L Low 21.0-32.[address] [facility] Comment on above: Performed By: #### L 100.0100, L500.4050, L501.9520, L501.2300 ####[facility] [address] [place], [address] Creatinine [Mass/Vol] 0.79 mg/dL Normal 0.70-1.20 [facility] Comment on above: Performed By: #### L 100.0100, L500.4050, L501.9520, L501.2300 ####[facility] [address] [place], [address] ECRCL 64.72 ml/min Normal 50-[address] [facility] Comment on above: Performed By: #### L 100.0100, L500.4050, L501.9520, L501.2300 ####[facility] [address] [place], [address] GAP 15 Normal 5-[address] [facility] Comment on above: Performed By: #### L 100.0100, L500.4050, L501.9520, L501.2300 ####[facility] [address] [place], [address] GFR/1.73 sq M.predicted among non-blacks MDRD (S/P/Bld) [Vol rate/Area] 81 mL/min/{1.73_m2} Normal >60 [facility] Comment on above: Result Comment: mL/m in/1.73m2 CKD-EPI Creatinine Equation (2020) Performed By: #### L 100.0100, L500.4050, L501.9520, L501.2300 ####[facility] [address] [place], [address] Globulin (S) [Mass/Vol] 2.8 g/dL Normal 2.2-4.2 [facility] Comment on above: Performed By: #### L 100.0100, L500.4050, L501.9520, L501.2300 ####[facility] [address] [place], [address] Glucose [Mass/Vol] 152 mg/dL High 70-99 [facility] Comment on above: Performed By: #### L 100.0100, L500.4050, L501.9520, L501.2300 ####[facility] [address] [place], [address] Potassium [Moles/Vol] 4.1 mmol/L Normal 3.3-5.1 [facility] Comment on above: Performed By: #### L 100.0100, L500.4050, L501.9520, L501.2300 ####[facility] [address] [place], [address] Sodium [Moles/Vol] 137 mmol/L Normal 133-145 [facility] Comment on above: Performed By: #### L 100.0100, L500.4050, L501.9520, L501.2300 ####[facility] [address] [place], [address] T PROT 6.8 g/dL Normal 5.9-8.[address] [facility] Comment on above: Performed By: #### L 100.0100, L500.4050, L501.9520, L501.2300 ####[facility] [address] [place], [address] Urea nitrogen [Mass/Vol] 7 mg/dL Normal 4-[address] [facility] Comment on above: Performed By: #### L 100.0100, L500.4050, L501.9520, L501.2300 ####[facility] [address] [place], [address] Eosinophil percentageOrdered By: Shannan Waldrop on 03-15-2025 Eosinophils/100 WBC (Bld) 2.0 % 0-[address] [facility] Erythrocyte distribution wid th ratioOrdered By: Shannan Waldrop on 03-15-2025 Erythrocyte distribution width (RBC) [Ratio] 20.6 % High 11.6-14.[address] [facility] Erythrocyte distribution wid th standard deviationOrdered By: Shannan Waldrop on 03-15-2025 Erythrocyte distribution width (RBC) [Ratio] 63.2 fl High 35.1-43.[address] [facility] Glomerular filtration rate ( GFR) estimation/1.73 sq m using serum, plasma, or whole bOrdered By: Shannan Waldrop on 03-15-2025 GFR/1.73 sq M.predicted among non-blacks MDRD (S/P/Bld) [Vol rate/Area] 81 mL/min/{1.73_m2} >60 [facility] Comment on above: mL/min/1.73m2 CKD-EP I Creatinine Equation (2020) Hematocrit Auto (Bld) [Volum e fraction]Ordered By: [facility] on 03-15-2025 Hematocrit (Bld) [Volume fraction] 33.2 % Low 37-[address] [facility] Hemoglobin measurementOrdere d By: Shannan Waldrop on 03-15-2025 Hemoglobin (Bld) [Mass/Vol] 10.4 g/dL Low 12.0-15.[address] [facility] Immature granulocytes/100 WB C Auto (Bld)Ordered By: [facility] Wal[facility] on 03-15-2025 Immature granulocytes/100 WBC (Bld) 0.400 % 0.0-0.[address] [facility] Comment on above: IG% - Immature Granu locytes (promyelocytes, myelocytes and metamyelocytes) > 1% indicates that a LEFT SHIFT is Present. Laboratory - Chemistry and C hemistry - challengeOrdered By: [facility] AST [Catalytic activity/Vol] 18 U/L <[address] [facility] Laboratory - Hematology and Cell countsOrdered By: [facility] on 03-15-2025 Anisocytosis Ql (Bld) 1+ [facility] MCV (mean corpuscular volume ) determinationOrdered By: [facility] Waldrop on 03-15-2025 MCV (RBC) [Entitic vol] 84.9 fL 81-99 [facility] Macrocytes detectionOrdered By: [facility] Waldrop on 03-15-2025 Macrocytes Ql (Bld) 1+ [facility] Magnesiumon 03-15-2025 Magnesium [Mass/Vol] 1.5 mg/dL Normal 1.5-2.2 [facility] Comment on above: Performed By: #### L 501.5200, L506.0400 ####[facility] [address] [place], [address] Magnesium measurement (mass/ volume)Ordered By: Shannan Waldrop on 03-15-2025 Magnesium (Unsp spec) [Mass/Vol] 1.5 mg/dL 1.5-2.[address] [facility] Mean corpuscular hemoglobin (MCH) determinationOrdered By: Shannan Waldrop on 03-15-2025 MCH (RBC) [Entitic mass] 26.6 pg Low 27.0-32.[address] [facility] Mean corpuscular hemoglobin concentration (MCHC) determinationOrdered By: [facility] on 03-15-2025 MCHC (RBC) [Mass/Vol] 31.3 g/dL Low 32-36 [facility] Mean platelet volume determi nationOrdered By: Shannan Waldrop on 03-15-2025 Platelet mean volume (Bld) [Entitic vol] 8.8 fL 6.2-12.[address] [facility] Monocyte percentageOrdered B y: Shannan Waldrop on 03-15-2025 Monocytes/100 WBC (Bld) 13.1 % High 0-10 [facility] Neutrophil percentageOrdered By: [facility] Benjie on 03-15-2025 Neutrophils/100 WBC (Bld) 70.0 % 47-[address] [facility] Nucleated red blood cell per centageOrdered By: [facility] on 03-15-2025 Nucleated RBC/100 WBC (Bld) [Ratio] 0 % 0-[address] [facility] Oncology Visit Reporton 02-16 Oncology Visit Report Normal [facility] Ovalocyte detectionOrdered B y: Shannan Waldrop on 03-15-2025 Ovalocytes LM Ql (Bld) 1+ [facility] Phosphoruson 03-15-2025 Phosphate [Mass/Vol] 2.9 mg/dL Normal 2.7-4.5 [facility] Comment on above: Performed By: #### L 100.0100, L500.4050, L501.9520, L501.2300 ####[facility] [address] [place], [address] Platelet countOrdered By: Adriana Waldrop on 03-15-2025 Platelets (Bld) [#/Vol] 248 10*3/uL 150-[address] [facility] Platelet estimateOrdered By: Shannan Waldrop on 03-15-2025 Platelets LM Ql (Bld) A ADEQ [facility] Potassium measurement (mass/ volume)Ordered By: Shannan Waldrop on 03-15-2025 Potassium (Unsp spec) [Mass/Vol] 4.1 mmol/L 3.3-5.[address] [facility] RBC Auto (Bld) [#/Vol]Ordere d By: Shannan Waldrop on 03-15-2025 RBC (Bld) [#/Vol] 3.91 10*6/uL Low 4.2-5.4 [facility] Serum creatinine measurement (mass/volume)Ordered By: Shannan Waldrop on 03-15-2025 Creatinine [Mass/Vol] 0.79 mg/dL 0.70-1.20 [facility] Serum globulin measurementOr dered By: Shannan Waldrop on 03-15-2025 Globulin (S) [Mass/Vol] 2.8 g/dL 2.2-4.2 [facility] Serum glucose measurement (m ass/volume)Ordered By: Shannan Waldrop on 03-15-2025 Glucose [Mass/Vol] 152 mg/dL High 70-99 [facility] [facility] Serum or plasma alanine amezquita otransferase (ALT) measurementOrdered By: Shannan Waldrop on 03-15-2025 ALT [Catalytic activity/Vol] 9 U/L <[address] [facility] Serum or plasma albumin joaquin urement (mass/volume)Ordered By: Shannan Waldrop on 03-15-2025 Albumin [Mass/Vol] 4.0 g/dL 3.4-4.8 [facility] Serum or plasma albumin/glob ulin mass ratioOrdered By: Shannan Waldrop on 03-15-2025 Albumin/Globulin [Mass ratio] 1.4 {ratio} 0.9-2.[address] [facility] Serum or plasma alkaline gumaro sphatase measurementOrdered By: Shannan Waldrop on 03-15-2025 ALP [Catalytic activity/Vol] 74 U/L 35-[address] [facility] Serum or plasma calcium joaquin urement (mass/volume)Ordered By: Shannan Waldrop on 03-15-2025 Calcium [Mass/Vol] 8.9 mg/dL 7.6-11.0 [facility] Serum or plasma urea nitroge n measurement (mass/volume)Ordered By: Shannan Loweryantelmo on 03-15-2025 Urea nitrogen [Mass/Vol] 7 mg/dL 4-[address] [facility] Sodium levelOrdered By: Spring Loweryantelmo on 03-15-2025 Sodium [Moles/Vol] 137 mmol/L 133-145 [facility] T4 Free Directon 03-15-2025 T4 FREE DIRECT 0.50 ng/dL Low 0.76-1.[address] [facility] Comment on above: Performed By: #### L 501.5200, L506.0400 ####[facility] [address] [place], [place], [id number] T4 freeOrdered By: Shannan Horne nori on 03-15-2025 Free T4 [Mass/Vol] 0.50 ng/dL Low 0.76-1.46 [facility] TSH DL <= 0.005 mIU/L QnOrde red By: Shannan Loweryantelmo on 03-15-2025 TSH Qn 45.800 uIU/mL High 0.300-4.[address] [facility] Thyroid Stim Hormone (TSH)on 03-15-2025 TSH 45.800 uIU/mL High 0.300-4.[address] [facility] Comment on above: Performed By: #### L 100.0100, L500.4050, L501.9520, L501.2300 ####[facility] [address] [place], [place], [id number] Total proteinOrdered By: Howard Loweryantelmo on 03-15-2025 Protein [Mass/Vol] 6.8 g/dL 5.9-8.4 [facility] Vitamin B12on 03-15-2025 Cobalamin (Vitamin B12) [Mass/Vol] 527 pg/mL Normal 180-[address] [facility] Comment on above: Order Comment: ADD O N Performed By: #### L 503.0106 ####[facility] [address] [place], [address] Vitamin B12 ser/plasOrdered By: Nic Hall on 03-15-2025 Cobalamin (Vitamin B12) [Mass/Vol] 527 pg/mL 180-[address] [facility] White blood cell (WBC) count Ordered By: Shannan Waldrop on 03-15-2025 WBC (Bld) [#/Vol] 7.5 10*3/uL 4.4-11.0 [facility] Lumbar Spine 2 or 3 Viewson 03-08-2025 Lumbar Spine 2 or 3 Views Normal [facility] MR/BMS.BVSon 03-08-2025 MR/BMS.BVS Normal [facility] Absolute lymphocyte countOrd ered By: Shannan Waldrop on 02-22-2025 Lymphocytes Auto (Unsp spec) [#/Vol] 1.16 10*3/uL 0.83-4.[address] [facility] Absolute neutrophil countOrd ered By: Shannan Waldrop on 02-22-2025 Neutrophils (Bld) [#/Vol] 5.6 10*3/uL 2.0-7.[address] [facility] Anion gap in Serum or Plasma Ordered By: Shannan Waldrop on 02-22-2025 Anion gap [Moles/Vol] 14 mmol/L 5-15 [facility] Automated lymphocyte count a s percentage of total leukocytesOrdered By: Shannan Waldrop on 02-22-2025 Lymphocytes/100 WBC Auto (Unsp spec) 15.0 % Low 19-[address] [facility] BUN/creatinine ratioOrdered By: Shannan Waldrop on 02-22-2025 Urea nitrogen/Creatinine [Mass ratio] 11.1 mg/mg 10-[address] [facility] Basophil percentageOrdered B y: Shannan Waldrop on 02-22-2025 Basophils/100 WBC (Bld) 0.3 % 0-1 [facility] Bilirubin, totalOrdered By: Shannan Waldrop on 02-22-2025 Bilirubin [Mass/Vol] 0.37 mg/dL 0.00-1.30 [facility] CBC W/Diff, Automatedon 07 Absolute Lymph 1.16 X10 3/uL Normal 0.83-4.[address] [facility] Comment on above: Performed By: #### L 501.9520, L100.0100, L500.4050, L501.2300 ####[facility] [address] [place], [address] Absolute Neut 5.6 X10 3/uL Normal 2.0-7.[address] [facility] Comment on above: Performed By: #### L 501.9520, L100.0100, L500.4050, L501.2300 ####[facility] [address] [place], [address] Basophils/100 WBC (Bld) 0.3 % Normal 0-1 [facility] Comment on above: Performed By: #### L 501.9520, L100.0100, L500.4050, L501.2300 ####[facility] [address] [place], [address] Eosinophils/100 WBC (Bld) 1.3 % Normal 0-[address] [facility] Comment on above: Performed By: #### L 501.9520, L100.0100, L500.4050, L501.2300 ####[facility] [address] [place], [address] Erythrocyte distribution width (RBC) [Ratio] 19.8 % High 11.6-14.[address] [facility] Comment on above: Performed By: #### L 501.9520, L100.0100, L500.4050, L501.2300 ####[facility] [address] [place], [address] Hematocrit (Bld) [Volume fraction] 33.5 % Low 37-[address] [facility] Comment on above: Performed By: #### L 501.9520, L100.0100, L500.4050, L501.2300 ####[facility] [address] [place], [address] Hemoglobin (Bld) [Mass/Vol] 10.3 g/dL Low 12.0-15.[address] [facility] Comment on above: Performed By: #### L 501.9520, L100.0100, L500.4050, L501.2300 ####[facility] [address] [place], [address] IG% 0.100 Normal 0.0-0.[address] [facility] Comment on above: Result Comment: IG% - Immature Granulocytes (promyelocytes, myelocytes andmetamyelocytes) > 1% indicates that a LEFT SHIFT is Present. Performed By: #### L 501.9520, L100.0100, L500.4050, L501.2300 ####[facility] [address] [place], [address] Lymphocytes/100 WBC (Bld) 15.0 % Low 19-[address] [facility] Comment on above: Performed By: #### L 501.9520, L100.0100, L500.4050, L501.2300 ####[facility] [address] [place], [address] MCH (RBC) [Entitic mass] 25.9 pg Low 27.0-32.[address] [facility] Comment on above: Performed By: #### L 501.9520, L100.0100, L500.4050, L501.2300 ####[facility] [address] [place], [address] MCHC (RBC) [Mass/Vol] 30.7 g/dL Low 32-36 [facility] Comment on above: Performed By: #### L 501.9520, L100.0100, L500.4050, L501.2300 ####[facility] [address] [place], [address] MCV (RBC) [Entitic vol] 84.4 fL Normal 81-99 [facility] Comment on above: Performed By: #### L 501.9520, L100.0100, L500.4050, L501.2300 ####[facility] [address] [place], [address] Monocytes/100 WBC (Bld) 11.1 % High 0-10 [facility] Comment on above: Performed By: #### L 501.9520, L100.0100, L500.4050, L501.2300 ####[facility] [address] [place], [address] Neutrophils/100 WBC (Bld) 72.2 % High 47-[address] [facility] Comment on above: Performed By: #### L 501.9520, L100.0100, L500.4050, L501.2300 ####[facility] [address] [place], [address] Nucleated RBC (Bld) [#/Vol] 0 10*3/uL Normal 0-[address] [facility] Comment on above: Performed By: #### L 501.9520, L100.0100, L500.4050, L501.2300 ####[facility] [address] [place], [address] Platelet mean volume (Bld) [Entitic vol] 8.6 fL Normal 6.2-12.[address] [facility] Comment on above: Performed By: #### L 501.9520, L100.0100, L500.4050, L501.2300 ####[facility] [address] [place], [address] Platelets (Bld) [#/Vol] 306 10*3/uL Normal 150-[address] [facility] Comment on above: Performed By: #### L 501.9520, L100.0100, L500.4050, L501.2300 ####[facility] [address] [place], [address] RBC (Bld) [#/Vol] 3.97 10*6/uL Low 4.2-5.4 [facility] Comment on above: Performed By: #### L 501.9520, L100.0100, L500.4050, L501.2300 ####[facility] [address] [place], [address] RDW SD 60.5 fl High 35.1-43.[address] [facility] Comment on above: Performed By: #### L 501.9520, L100.0100, L500.4050, L501.2300 ####[facility] [address] [place], [address] WBC (Bld) [#/Vol] 7.8 10*3/uL Normal 4.4-11.0 [facility] Comment on above: Performed By: #### L 501.9520, L100.0100, L500.4050, L501.2300 ####[facility] [address] [place], [address] Carbon dioxide, total [Moles /volume] in Central venous bloodOrdered By: Shannan Waldrop on 02-22-2025 CO2 [Moles/Vol] 21.2 mmol/L 21.0-32.[address] [facility] Chloride assayOrdered By: Adriana Waldrop on 02-22-2025 Chloride [Moles/Vol] 103 mmol/L 98-108 [facility] Comprehensive Metabolic Prof ilon 02-22-2025 Albumin [Mass/Vol] 4.0 g/dL Normal 3.4-4.8 [facility] Comment on above: Performed By: #### L 501.9520, L100.0100, L500.4050, L501.2300 ####[facility] [address] [place], [address] Albumin/Globulin [Mass ratio] 1.5 {ratio} Normal 0.9-2.[address] [facility] Comment on above: Performed By: #### L 501.9520, L100.0100, L500.4050, L501.2300 ####[facility] [address] [place], [address] ALK PHOS 83 U/L Normal 35-[address] [facility] Comment on above: Performed By: #### L 501.9520, L100.0100, L500.4050, L501.2300 ####[facility] [address] [place], [address] ALT [Catalytic activity/Vol] 9 U/L Normal <=[address] [facility] Comment on above: Performed By: #### L 501.9520, L100.0100, L500.4050, L501.2300 ####[facility] [address] [place], [address] AST [Catalytic activity/Vol] 18 U/L Normal <=[address] [facility] Comment on above: Performed By: #### L 501.9520, L100.0100, L500.4050, L501.2300 ####[facility] [address] [place], [address] Bilirubin [Mass/Vol] 0.37 mg/dL Normal 0.00-1.30 [facility] Comment on above: Performed By: #### L 501.9520, L100.0100, L500.4050, L501.2300 ####[facility] [address] [place], [address] BUN/CRE 11.1 RATIO Normal 10-[address] [facility] Comment on above: Performed By: #### L 501.9520, L100.0100, L500.4050, L501.2300 ####[facility] [address] [place], [address] Calcium [Mass/Vol] 8.6 mg/dL Normal 7.6-11.0 [facility] Comment on above: Performed By: #### L 501.9520, L100.0100, L500.4050, L501.2300 ####[facility] [address] [place], [address] Chloride [Moles/Vol] 103 mmol/L Normal 98-108 [facility] Comment on above: Performed By: #### L 501.9520, L100.0100, L500.4050, L501.2300 ####[facility] [address] [place], [address] CO2 [Moles/Vol] 21.2 mmol/L Normal 21.0-32.[address] [facility] Comment on above: Performed By: #### L 501.9520, L100.0100, L500.4050, L501.2300 ####[facility] [address] [place], [address] Creatinine [Mass/Vol] 0.88 mg/dL Normal 0.70-1.20 [facility] Comment on above: Performed By: #### L 501.9520, L100.0100, L500.4050, L501.2300 ####[facility] [address] [place], [address] ECRCL 58.84 ml/min Normal 50-[address] [facility] Comment on above: Performed By: #### L 501.9520, L100.0100, L500.4050, L501.2300 ####[facility] [address] [place], [address] GAP 14 Normal 5-[address] [facility] Comment on above: Performed By: #### L 501.9520, L100.0100, L500.4050, L501.2300 ####[facility] [address] [place], [address] GFR/1.73 sq M.predicted among non-blacks MDRD (S/P/Bld) [Vol rate/Area] 71 mL/min/{1.73_m2} Normal >60 [facility] Comment on above: Result Comment: mL/m in/1.73m2 CKD-EPI Creatinine Equation (2020) Performed By: #### L 501.9520, L100.0100, L500.4050, L501.2300 ####[facility] [address] [place], [address] Globulin (S) [Mass/Vol] 2.8 g/dL Normal 2.2-4.2 [facility] Comment on above: Performed By: #### L 501.9520, L100.0100, L500.4050, L501.2300 ####[facility] [address] [place], [address] Glucose [Mass/Vol] 222 mg/dL High 70-99 [facility] Comment on above: Performed By: #### L 501.9520, L100.0100, L500.4050, L501.2300 ####[facility] [address] [place], [address] Potassium [Moles/Vol] 4.1 mmol/L Normal 3.3-5.1 [facility] Comment on above: Performed By: #### L 501.9520, L100.0100, L500.4050, L501.2300 ####[facility] [address] [place], [address] Sodium [Moles/Vol] 138 mmol/L Normal 133-145 [facility] Comment on above: Performed By: #### L 501.9520, L100.0100, L500.4050, L501.2300 ####[facility] [address] [place], [address] T PROT 6.8 g/dL Normal 5.9-8.[address] [facility] Comment on above: Performed By: #### L 501.9520, L100.0100, L500.4050, L501.2300 ####[facility] [address] [place], [address] Urea nitrogen [Mass/Vol] 10 mg/dL Normal 4-[address] [facility] Comment on above: Performed By: #### L 501.9520, L100.0100, L500.4050, L501.2300 ####[facility] [address] [place], [address] Eosinophil percentageOrdered By: Shannan Waldrop on 02-22-2025 Eosinophils/100 WBC (Bld) 1.3 % 0-[address] [facility] Erythrocyte distribution wid th ratioOrdered By: [facility] on 02-22-2025 Erythrocyte distribution width (RBC) [Ratio] 19.8 % High 11.6-14.[address] [facility] Erythrocyte distribution wid th standard deviationOrdered By: [facility] Wal[facility] on 02-22-2025 Erythrocyte distribution width (RBC) [Ratio] 60.5 fl High 35.1-43.[address] [facility] Glomerular filtration rate ( GFR) estimation/1.73 sq m using serum, plasma, or whole bOrdered By: [facility] Wal[facility] on 02-22-2025 GFR/1.73 sq M.predicted among non-blacks MDRD (S/P/Bld) [Vol rate/Area] 71 mL/min/{1.73_m2} >60 [facility] Comment on above: mL/min/1.73m2 CKD-EP I Creatinine Equation (2020) Hematocrit Auto (Bld) [Volum e fraction]Ordered By: Shannan Waldrop on 02-22-2025 Hematocrit (Bld) [Volume fraction] 33.5 % Low 37-[address] [facility] Hemoglobin measurementOrdere d By: Shannan Waldrop on 02-22-2025 Hemoglobin (Bld) [Mass/Vol] 10.3 g/dL Low 12.0-15.[address] [facility] Immature granulocytes/100 WB C Auto (Bld)Ordered By: Shannan Waldrop on 02-22-2025 Immature granulocytes/100 WBC (Bld) 0.100 % 0.0-0.[address] [facility] Comment on above: IG% - Immature Granu locytes (promyelocytes, myelocytes and metamyelocytes) > 1% indicates that a LEFT SHIFT is Present. Laboratory - Chemistry and C hemistry - challengeOrdered By: Shannan Waldrop on 02-22-2025 AST [Catalytic activity/Vol] 18 U/L <[address] [facility] MCV (mean corpuscular volume ) determinationOrdered By: Shannan Waldrop on 02-22-2025 MCV (RBC) [Entitic vol] 84.4 fL 81-99 [facility] Mean corpuscular hemoglobin (MCH) determinationOrdered By: [facility] on 02-22-2025 MCH (RBC) [Entitic mass] 25.9 pg Low 27.0-32.[address] [facility] Mean corpuscular hemoglobin concentration (MCHC) determinationOrdered By: Shannan Waldrop on 02-22-2025 MCHC (RBC) [Mass/Vol] 30.7 g/dL Low 32-36 [facility] Mean platelet volume determi nationOrdered By: Shannan Waldrop on 02-22-2025 Platelet mean volume (Bld) [Entitic vol] 8.6 fL 6.2-12.[address] [facility] Monocyte percentageOrdered B y: Shannan Waldrop on 02-22-2025 Monocytes/100 WBC (Bld) 11.1 % High 0-10 [facility] Neutrophil percentageOrdered By: [facility] Benjie on 02-22-2025 Neutrophils/100 WBC (Bld) 72.2 % High 47-[address] [facility] Nucleated red blood cell per centageOrdered By: [facility] on 02-22-2025 Nucleated RBC/100 WBC (Bld) [Ratio] 0 % 0-[address] [facility] Oncology Visit Reporton Oncology Visit Report Normal [facility] Phosphoruson 02-22-2025 Phosphate [Mass/Vol] 2.8 mg/dL Normal 2.7-4.5 [facility] Comment on above: Performed By: #### L 501.2682, L100.0100, L500.4050, L501.2300 ####[facility] [address] [place], [address] Platelet countOrdered By: Adriana Waldrop on 02-22-2025 Platelets (Bld) [#/Vol] 306 10*3/uL 150-[address] [facility] Potassium measurement (mass/ volume)Ordered By: Shannan Waldrop on 02-22-2025 Potassium (Unsp spec) [Mass/Vol] 4.1 mmol/L 3.3-5.[address] [facility] RBC Auto (Bld) [#/Vol]Ordere d By: Shannan Waldrop on 02-22-2025 RBC (Bld) [#/Vol] 3.97 10*6/uL Low 4.2-5.4 [facility] Serum creatinine measurement (mass/volume)Ordered By: Shannan Waldrop on 02-22-2025 Creatinine [Mass/Vol] 0.88 mg/dL 0.70-1.20 [facility] Serum globulin measurementOr dered By: Shannan Waldrop on 02-22-2025 Globulin (S) [Mass/Vol] 2.8 g/dL 2.2-4.2 [facility] Serum glucose measurement (m ass/volume)Ordered By: Shannan Waldrop on 02-22-2025 Glucose [Mass/Vol] 222 mg/dL High 70-99 [facility] Serum or plasma alanine amezquita otransferase (ALT) measurementOrdered By: Shannan Waldrop on 02-22-2025 ALT [Catalytic activity/Vol] 9 U/L <[address] [facility] Serum or plasma albumin joaquin urement (mass/volume)Ordered By: Shannan Waldrop on 02-22-2025 Albumin [Mass/Vol] 4.0 g/dL 3.4-4.8 [facility] Serum or plasma albumin/glob ulin mass ratioOrdered By: Shannan Waldrop on 02-22-2025 Albumin/Globulin [Mass ratio] 1.5 {ratio} 0.9-2.[address] [facility] Serum or plasma alkaline gumaro sphatase measurementOrdered By: Shannan Waldrop on 02-22-2025 ALP [Catalytic activity/Vol] 83 U/L 35-[address] [facility] Serum or plasma calcium joaquin urement (mass/volume)Ordered By: Shannan Benjie on 02-22-2025 Calcium [Mass/Vol] 8.6 mg/dL 7.6-11.0 [facility] Serum or plasma urea nitroge n measurement (mass/volume)Ordered By: Springja Waldrop on 02-22-2025 Urea nitrogen [Mass/Vol] 10 mg/dL 4-[address] [facility] Sodium levelOrdered By: Spring peres Benjie on 02-22-2025 Sodium [Moles/Vol] 138 mmol/L 133-145 [facility] TSH DL <= 0.005 mIU/L QnOrde red By: Shannan Benjie on 02-22-2025 TSH Qn 34.600 uIU/mL High 0.300-4.[address] [facility] Thyroid Stim Hormone (TSH)on 02-22-2025 TSH 34.600 uIU/mL High 0.300-4.[address] [facility] Comment on above: Performed By: #### L 501.9520, L100.0100, L500.4050, L501.2300 ####[facility] [address] [place], [place], [id number] Total proteinOrdered By: Howard french Benjie on 02-22-2025 Protein [Mass/Vol] 6.8 g/dL 5.9-8.4 [facility] White blood cell (WBC) count Ordered By: Springja Waldrop on 02-22-2025 WBC (Bld) [#/Vol] 7.8 10*3/uL 4.4-11.0 [facility] CBC W/Diff, Automatedon 07-0 Absolute Neut Normal 2.0-7.[address] [facility] Comment on above: Result Comment: NO S PECIMENS COLLECTED Performed By: #### L 100.0100, L500.4050 ####[facility] [address] [place], [address] HCT Normal 37-[address] [facility] Comment on above: Result Comment: NO S PECIMENS COLLECTED Performed By: #### L 100.0100, L500.4050 ####[facility] [address] [place], [address] HGB Normal 12.0-15.[address] [facility] Comment on above: Result Comment: NO S PECIMENS COLLECTED Performed By: #### L 100.0100, L500.4050 ####[facility] [address] [place], [address] MCH Normal 27.0-32.[address] [facility] Comment on above: Result Comment: NO S PECIMENS COLLECTED Performed By: #### L 100.0100, L500.4050 ####[facility] [address] [place], [address] MCHC Normal 32-[address] [facility] Comment on above: Result Comment: NO S PECIMENS COLLECTED Performed By: #### L 100.0100, L500.4050 ####[facility] [address] [place], [address] MCV Normal 81-[address] [facility] Comment on above: Result Comment: NO S PECIMENS COLLECTED Performed By: #### L 100.0100, L500.4050 ####[facility] [address] [place], [address] NEUT% Normal 47-[address] [facility] Comment on above: Result Comment: NO S PECIMENS COLLECTED Performed By: #### L 100.0100, L500.4050 ####[facility] [address] [place], [address] PLT Normal 150-[address] [facility] Comment on above: Result Comment: NO S PECIMENS COLLECTED Performed By: #### L 100.0100, L500.4050 ####[facility] [facility] [address] [place], [address] RBC Normal 4.2-5.[address] [facility] Comment on above: Result Comment: NO S PECIMENS COLLECTED Performed By: #### L 100.0100, L500.4050 ####[facility] [address] [place], [address] RDW CV Normal 11.6-14.[address] [facility] Comment on above: Result Comment: NO S PECIMENS COLLECTED Performed By: #### L 100.0100, L500.4050 ####[facility] [address] [place], [address] RDW SD Normal 35.1-43.[address] [facility] Comment on above: Result Comment: NO S PECIMENS COLLECTED Performed By: #### L 100.0100, L500.4050 ####[facility] [address] [place], [address] WBC Normal 4.4-11.[address] [facility] Comment on above: Result Comment: NO S PECIMENS COLLECTED Performed By: #### L 100.0100, L500.4050 ####[facility] [address] [place], [address] Comprehensive Metabolic Prof ilon 02-15-2025 ALB Normal 3.4-4.[address] [facility] Comment on above: Result Comment: NO S PECIMENS COLLECTED Performed By: #### L 100.0100, L500.4050 ####[facility] [address] [place], [address] ALK PHOS Normal 35-[address] [facility] Comment on above: Result Comment: NO S PECIMENS COLLECTED Performed By: #### L 100.0100, L500.4050 ####[facility] [address] [place], [address] ALT Normal <=[address] [facility] Comment on above: Result Comment: NO S PECIMENS COLLECTED Performed By: #### L 100.0100, L500.4050 ####[facility] [address] [place], [address] AST Normal <=[address] [facility] Comment on above: Result Comment: NO S PECIMENS COLLECTED Performed By: #### L 100.0100, L500.4050 ####[facility] [address] [place], [address] BUN Normal 4-[address] [facility] Comment on above: Result Comment: NO S PECIMENS COLLECTED Performed By: #### L 100.0100, L500.4050 ####[facility] [address] [place], [address] BUN/CRE Normal 10-[address] [facility] Comment on above: Result Comment: NO S PECIMENS COLLECTED Performed By: #### L 100.0100, L500.4050 ####[facility] [address] [place], [address] Calcium Normal 7.6-11.[address] [facility] Comment on above: Result Comment: NO S PECIMENS COLLECTED Performed By: #### L 100.0100, L500.4050 ####[facility] [address] [place], [address] CL Normal 98-[address] [facility] Comment on above: Result Comment: NO S PECIMENS COLLECTED Performed By: #### L 100.0100, L500.4050 ####[facility] [address] [place], [address] CO2 Normal 21.0-32.[address] [facility] Comment on above: Result Comment: NO S PECIMENS COLLECTED Performed By: #### L 100.0100, L500.4050 ####[facility] [address] [place], [address] CREAT,SERUM Normal 0.70-1.[address] [facility] Comment on above: Result Comment: NO S PECIMENS COLLECTED Performed By: #### L 100.0100, L500.4050 ####[facility] [address] [place], [address] eGFR Normal >[address] [facility] Comment on above: Result Comment: NO S PECIMENS COLLECTED Performed By: #### L 100.0100, L500.4050 ####[facility] [address] [place], [address] GAP Normal 5-[address] [facility] Comment on above: Result Comment: NO S PECIMENS COLLECTED Performed By: #### L 100.0100, L500.4050 ####[facility] [address] [place], [address] GLU Normal 70-[address] [facility] Comment on above: Result Comment: NO S PECIMENS COLLECTED Performed By: #### L 100.0100, L500.4050 ####[facility] [address] [place], [address] Potassium Normal 3.3-5.[address] [facility] Comment on above: Result Comment: NO S PECIMENS COLLECTED Performed By: #### L 100.0100, L500.4050 ####[facility] [address] [place], [address] T BILI Normal 0.00-1.[address] [facility] Comment on above: Result Comment: NO S PECIMENS COLLECTED Performed By: #### L 100.0100, L500.4050 ####[facility] [address] [place], [address] T PROT Normal 5.9-8.[address] [facility] Comment on above: Result Comment: NO S PECIMENS COLLECTED Performed By: #### L 100.0100, L500.4050 ####[facility] [address] [place], [address] Comprehensive Metabolic Profil Normal 133-[address] [facility] Comment on above: Result Comment: NO S PECIMENS COLLECTED Performed By: #### L 100.0100, L500.4050 ####[facility] [address] [place], [address] Absolute lymphocyte countOrd ered By: [facility] on 01-25-2025 Lymphocytes Auto (Unsp spec) [#/Vol] 1.26 10*3/uL 0.83-4.[address] [facility] Absolute neutrophil countOrd ered By: [facility] on 01-25-2025 Neutrophils (Bld) [#/Vol] 4.8 10*3/uL 2.0-7.[address] [facility] Anion gap in Serum or Plasma Ordered By: Shannan Waldrop on 01-25-2025 Anion gap [Moles/Vol] 15 mmol/L 5-15 [facility] Automated lymphocyte count a s percentage of total leukocytesOrdered By: Shannan Waldrop on 01-25-2025 Lymphocytes/100 WBC Auto (Unsp spec) 18.4 % Low 19-[address] [facility] BUN/creatinine ratioOrdered By: [facility] on 01-25-2025 Urea nitrogen/Creatinine [Mass ratio] 11.9 mg/mg 10- [facility] Basophil percentageOrdered B y: Shannan Waldrop on 01-25-2025 Basophils/100 WBC (Bld) 0.4 % 0- [facility] Bilirubin, totalOrdered By: Shannan Waldrop on 01-25-2025 Bilirubin [Mass/Vol] 0.29 mg/dL 0.00-1.30 [facility] CBC W/Diff, Automatedon 01-16 Absolute Lymph 1.26 X10 3/uL Normal 0.83-4.[address] [facility] Comment on above: Performed By: #### L 501.2300, L100.0100, L501.9520, L500.4050 ####[facility] [address] [place], [address] Absolute Neut 4.8 X10 3/uL Normal 2.0-7.[address] [facility] Comment on above: Performed By: #### L 501.2300, L100.0100, L501.9520, L500.4050 ####[facility] [address] [place], [address] Basophils/100 WBC (Bld) 0.4 % Normal 0-1 [facility] Comment on above: Performed By: #### L 501.2300, L100.0100, L501.9520, L500.4050 ####[facility] [address] [place], [address] Eosinophils/100 WBC (Bld) 1.5 % Normal 0-[address] [facility] Comment on above: Performed By: #### L 501.2300, L100.0100, L501.9520, L500.4050 ####[facility] [address] [place], [address] Erythrocyte distribution width (RBC) [Ratio] 18.6 % High 11.6-14.[address] [facility] Comment on above: Performed By: #### L 501.2300, L100.0100, L501.9520, L500.4050 ####[facility] [address] [place], [address] Hematocrit (Bld) [Volume fraction] 33.3 % Low 37-[address] [facility] Comment on above: Performed By: #### L 501.2300, L100.0100, L501.9520, L500.4050 ####[facility] [address] [place], [address] Hemoglobin (Bld) [Mass/Vol] 10.3 g/dL Low 12.0-15.[address] [facility] Comment on above: Performed By: #### L 501.2300, L100.0100, L501.9520, L500.4050 ####[facility] [address] [place], [address] IG% 0.600 Normal 0.0-0.[address] [facility] Comment on above: Result Comment: IG% - Immature Granulocytes (promyelocytes, myelocytes andmetamyelocytes) > 1% indicates that a LEFT SHIFT is Present. Performed By: #### L 501.2300, L100.0100, L501.9520, L500.4050 ####[facility] [address] [place], [address] Lymphocytes/100 WBC (Bld) 18.4 % Low 19-[address] [facility] Comment on above: Performed By: #### L 501.2300, L100.0100, L501.9520, L500.4050 ####[facility] [address] [place], [address] MCH (RBC) [Entitic mass] 25.3 pg Low 27.0-32.[address] [facility] Comment on above: Performed By: #### L 501.2300, L100.0100, L501.9520, L500.4050 ####[facility] [address] [place], [address] MCHC (RBC) [Mass/Vol] 30.9 g/dL Low 32-36 [facility] Comment on above: Performed By: #### L 501.2300, L100.0100, L501.9520, L500.4050 ####[facility] [address] [place], [address] MCV (RBC) [Entitic vol] 81.8 fL Normal 81-99 [facility] Comment on above: Performed By: #### L 501.2300, L100.0100, L501.9520, L500.4050 ####[facility] [address] [place], [address] Monocytes/100 WBC (Bld) 9.8 % Normal 0-10 [facility] Comment on above: Performed By: #### L 501.2300, L100.0100, L501.9520, L500.4050 ####[facility] [address] [place], [address] Neutrophils/100 WBC (Bld) 69.3 % Normal 47-[address] [facility] Comment on above: Performed By: #### L 501.2300, L100.0100, L501.9520, L500.4050 ####[facility] [address] [place], [address] Nucleated RBC (Bld) [#/Vol] 0 10*3/uL Normal 0-[address] [facility] Comment on above: Performed By: #### L 501.2300, L100.0100, L501.9520, L500.4050 ####[facility] [address] [place], [address] Platelet mean volume (Bld) [Entitic vol] 8.4 fL Normal 6.2-12.[address] [facility] Comment on above: Performed By: #### L 501.2300, L100.0100, L501.9520, L500.4050 ####[facility] [address] [place], [address] Platelets (Bld) [#/Vol] 288 10*3/uL Normal 150-[address] [facility] Comment on above: Performed By: #### L 501.2300, L100.0100, L501.9520, L500.4050 ####[facility] [address] [place], [address] RBC (Bld) [#/Vol] 4.07 10*6/uL Low 4.2-5.4 [facility] Comment on above: Performed By: #### L 501.2300, L100.0100, L501.9520, L500.4050 ####[facility] [address] [place], [address] RDW SD 54.9 fl High 35.1-43.[address] [facility] Comment on above: Performed By: #### L 501.2300, L100.0100, L501.9520, L500.4050 ####[facility] [address] [place], [address] WBC (Bld) [#/Vol] 6.9 10*3/uL Normal 4.4-11.0 [facility] Comment on above: Performed By: #### L 501.2300, L100.0100, L501.9520, L500.4050 ####[facility] [address] [place], [address] Carbon dioxide, total [Moles /volume] in Central venous bloodOrdered By: Shannan Waldrop on 01-25-2025 CO2 [Moles/Vol] 21.9 mmol/L 21.0-32.[address] [facility] Chloride assayOrdered By: Adriana Waldrop on 01-25-2025 Chloride [Moles/Vol] 102 mmol/L 98-108 [facility] Comprehensive Metabolic Prof ilon 01-25-2025 Albumin [Mass/Vol] 4.2 g/dL Normal 3.4-4.8 [facility] Comment on above: Performed By: #### L 501.2300, L100.0100, L501.9520, L500.4050 ####[facility] [address] [place], [address] Albumin/Globulin [Mass ratio] 1.4 {ratio} Normal 0.9-2.[address] [facility] Comment on above: Performed By: #### L 501.2300, L100.0100, L501.9520, L500.4050 ####[facility] [address] [place], [address] ALK PHOS 82 U/L Normal 35-[address] [facility] Comment on above: Performed By: #### L 501.2300, L100.0100, L501.9520, L500.4050 ####[facility] [address] [place], [address] ALT [Catalytic activity/Vol] 10 U/L Normal <=[address] [facility] Comment on above: Performed By: #### L 501.2300, L100.0100, L501.9520, L500.4050 ####[facility] [address] [place], [address] AST [Catalytic activity/Vol] 17 U/L Normal <=[address] [facility] Comment on above: Performed By: #### L 501.2300, L100.0100, L501.9520, L500.4050 ####[facility] [address] [place], [address] Bilirubin [Mass/Vol] 0.29 mg/dL Normal 0.00-1.30 [facility] Comment on above: Performed By: #### L 501.2300, L100.0100, L501.9520, L500.4050 ####[facility] [address] [place], [address] BUN/CRE 11.9 RATIO Normal 10-[address] [facility] Comment on above: Performed By: #### L 501.2300, L100.0100, L501.9520, L500.4050 ####[facility] [address] [place], [address] Calcium [Mass/Vol] 9.5 mg/dL Normal 7.6-11.0 [facility] Comment on above: Performed By: #### L 501.2300, L100.0100, L501.9520, L500.4050 ####[facility] [address] [place], [address] Chloride [Moles/Vol] 102 mmol/L Normal 98-108 [facility] Comment on above: Performed By: #### L 501.2300, L100.0100, L501.9520, L500.4050 ####[facility] [address] [place], [address] CO2 [Moles/Vol] 21.9 mmol/L Normal 21.0-32.[address] [facility] Comment on above: Performed By: #### L 501.2300, L100.0100, L501.9520, L500.4050 ####[facility] [address] [place], [address] Creatinine [Mass/Vol] 0.81 mg/dL Normal 0.70-1.20 [facility] Comment on above: Performed By: #### L 501.2300, L100.0100, L501.9520, L500.4050 ####[facility] [address] [place], [address] ECRCL 64.15 ml/min Normal 50-[address] [facility] Comment on above: Performed By: #### L 501.2300, L100.0100, L501.9520, L500.4050 ####[facility] [address] [place], [address] GAP 15 Normal 5-[address] [facility] Comment on above: Performed By: #### L 501.2300, L100.0100, L501.9520, L500.4050 ####[facility] [address] [place], [address] GFR/1.73 sq M.predicted among non-blacks MDRD (S/P/Bld) [Vol rate/Area] 79 mL/min/{1.73_m2} Normal >60 [facility] Comment on above: Result Comment: mL/m in/1.73m2 CKD-EPI Creatinine Equation (2020) Performed By: #### L 501.2300, L100.0100, L501.9520, L500.4050 ####[facility] [address] [place], [address] Globulin (S) [Mass/Vol] 2.9 g/dL Normal 2.2-4.2 [facility] Comment on above: Performed By: #### L 501.2300, L100.0100, L501.9520, L500.4050 ####[facility] [address] [place], [address] Glucose [Mass/Vol] 146 mg/dL High 70-99 [facility] Comment on above: Performed By: #### L 501.2300, L100.0100, L501.9520, L500.4050 ####[facility] [address] [place], [address] Potassium [Moles/Vol] 4.2 mmol/L Normal 3.3-5.1 [facility] Comment on above: Performed By: #### L 501.2300, L100.0100, L501.9520, L500.4050 ####[facility] [address] [place], [address] Sodium [Moles/Vol] 138 mmol/L Normal 133-145 [facility] Comment on above: Performed By: #### L 501.2300, L100.0100, L501.9520, L500.4050 ####[facility] [address] [place], [address] T PROT 7.1 g/dL Normal 5.9-8.[address] [facility] Comment on above: Performed By: #### L 501.2300, L100.0100, L501.9520, L500.4050 ####[facility] [address] [place], [address] Urea nitrogen [Mass/Vol] 10 mg/dL Normal 4-[address] [facility] Comment on above: Performed By: #### L 501.2300, L100.0100, L501.9520, L500.4050 ####[facility] [address] [place], [address] Eosinophil percentageOrdered By: Shannan Waldrop on 01-25-2025 Eosinophils/100 WBC (Bld) 1.5 % 0-[address] [facility] Erythrocyte distribution wid th ratioOrdered By: Shannan Waldrop on 01-25-2025 Erythrocyte distribution width (RBC) [Ratio] 18.6 % High 11.6-14.[address] [facility] Erythrocyte distribution wid th standard deviationOrdered By: Shannan Waldrop on 01-25-2025 Erythrocyte distribution width (RBC) [Ratio] 54.9 fl High 35.1-43.[address] [facility] Glomerular filtration rate ( GFR) estimation/1.73 sq m using serum, plasma, or whole bOrdered By: Shannan Waldrop on 01-25-2025 GFR/1.73 sq M.predicted among non-blacks MDRD (S/P/Bld) [Vol rate/Area] 79 mL/min/{1.73_m2} >60 [facility] Comment on above: mL/min/1.73m2 CKD-EP I Creatinine Equation (2020) Hematocrit Auto (Bld) [Volum e fraction]Ordered By: Shannan Waldrop on 01-25-2025 Hematocrit (Bld) [Volume fraction] 33.3 % Low 37-[address] [facility] Hemoglobin measurementOrdere d By: Shannan Waldrop on 01-25-2025 Hemoglobin (Bld) [Mass/Vol] 10.3 g/dL Low 12.0-15.[address] [facility] Immature granulocytes/100 WB C Auto (Bld)Ordered By: Shannan Waldrop on 01-25-2025 Immature granulocytes/100 WBC (Bld) 0.600 % 0.0-0.[address] [facility] Comment on above: IG% - Immature Granu locytes (promyelocytes, myelocytes and metamyelocytes) > 1% indicates that a LEFT SHIFT is Present. Laboratory - Chemistry and C hemistry - challengeOrdered By: Shannan Waldrop on 01-25-2025 AST [Catalytic activity/Vol] 17 U/L <[address] [facility] MCV (mean corpuscular volume ) determinationOrdered By: Shannan Waldrop on 01-25-2025 MCV (RBC) [Entitic vol] 81.8 fL 81-99 [facility] Magnesiumon 01-25-2025 Magnesium [Mass/Vol] 1.4 mg/dL Low 1.5-2.2 [facility] Comment on above: Performed By: #### L 501.5200 ####[facility] [address] [place], [address] Magnesium measurement (mass/ volume)Ordered By: Shannan Waldrop on 01-25-2025 Magnesium (Unsp spec) [Mass/Vol] 1.4 mg/dL Low 1.5-2.[address] [facility] Mean corpuscular hemoglobin (MCH) determinationOrdered By: Shannan Waldrop on 01-25-2025 MCH (RBC) [Entitic mass] 25.3 pg Low 27.0-32.[address] [facility] Mean corpuscular hemoglobin concentration (MCHC) determinationOrdered By: Shannan Waldrop on 01-25-2025 MCHC (RBC) [Mass/Vol] 30.9 g/dL Low 32-36 [facility] Mean platelet volume determi nationOrdered By: Shannan Waldrop on 01-25-2025 Platelet mean volume (Bld) [Entitic vol] 8.4 fL 6.2-12.[address] [facility] Monocyte percentageOrdered B y: Shannan Waldrop on 01-25-2025 Monocytes/100 WBC (Bld) 9.8 % 0-10 [facility] Neutrophil percentageOrdered By: [facility] Benjie on 01-25-2025 Neutrophils/100 WBC (Bld) 69.3 % 47-[address] [facility] Nucleated red blood cell per centageOrdered By: [facility] on 01-25-2025 Nucleated RBC/100 WBC (Bld) [Ratio] 0 % 0-[address] [facility] Oncology Visit Reporton 01-16 Oncology Visit Report Normal [facility] Phosphoruson 01-25-2025 Phosphate [Mass/Vol] 4.2 mg/dL Normal 2.7-4.5 [facility] Comment on above: Performed By: #### L 501.2300, L100.0100, L501.9520, L500.4050 ####[facility] [address] [place], [address] Platelet countOrdered By: Adriana Waldrop on 01-25-2025 Platelets (Bld) [#/Vol] 288 10*3/uL 150-[address] [facility] Potassium measurement (mass/ volume)Ordered By: Shannan Waldrop on 01-25-2025 Potassium (Unsp spec) [Mass/Vol] 4.2 mmol/L 3.3-5.[address] [facility] RBC Auto (Bld) [#/Vol]Ordere d By: Shannan Waldrop on 01-25-2025 RBC (Bld) [#/Vol] 4.07 10*6/uL Low 4.2-5.4 [facility] Serum creatinine measurement (mass/volume)Ordered By: Shannan Waldrop on 01-25-2025 Creatinine [Mass/Vol] 0.81 mg/dL 0.70-1.20 [facility] Serum globulin measurementOr dered By: Shannan Waldrop on 01-25-2025 Globulin (S) [Mass/Vol] 2.9 g/dL 2.2-4.2 [facility] Serum glucose measurement (m ass/volume)Ordered By: Shannan Waldrop on 01-25-2025 Glucose [Mass/Vol] 146 mg/dL High 70-99 [facility] Serum or plasma alanine amezquita otransferase (ALT) measurementOrdered By: Shannan Waldrop on 01-25-2025 ALT [Catalytic activity/Vol] 10 U/L <[address] [facility] Serum or plasma albumin joaquin urement (mass/volume)Ordered By: Shannan Waldrop on 01-25-2025 Albumin [Mass/Vol] 4.2 g/dL 3.4-4.8 [facility] Serum or plasma albumin/glob ulin mass ratioOrdered By: Shannan Waldrop on 01-25-2025 Albumin/Globulin [Mass ratio] 1.4 {ratio} 0.9-2.[address] [facility] Serum or plasma alkaline gumaro sphatase measurementOrdered By: Shannan Waldrop on 01-25-2025 ALP [Catalytic activity/Vol] 82 U/L 35-[address] [facility] Serum or plasma calcium joaquin urement (mass/volume)Ordered By: Shannan Waldrop on 01-25-2025 Calcium [Mass/Vol] 9.5 mg/dL 7.6-11.0 [facility] Serum or plasma urea nitroge n measurement (mass/volume)Ordered By: Shannan Waldrop on 01-25-2025 Urea nitrogen [Mass/Vol] 10 mg/dL 4-[address] [facility] Sodium levelOrdered By: Spring Waldrop on 01-25-2025 Sodium [Moles/Vol] 138 mmol/L 133-145 [facility] TSH DL <= 0.005 mIU/L QnOrde red By: Shannan Waldrop on 01-25-2025 TSH Qn 53.600 uIU/mL High 0.300-4.[address] [facility] Thyroid Stim Hormone (TSH)on 01-25-2025 TSH 53.600 uIU/mL High 0.300-4.[address] [facility] Comment on above: Performed By: #### L 501.2300, L100.0100, L501.9520, L500.4050 ####[facility] [address] [place], [address] Total proteinOrdered By: Howard Waldrop on 01-25-2025 Protein [Mass/Vol] 7.1 g/dL 5.9-8.4 [facility] White blood cell (WBC) count Ordered By: Shannan Waldrop on 01-25-2025 WBC (Bld) [#/Vol] 6.9 10*3/uL 4.4-11.0 [facility] Absolute lymphocyte countOrd ered By: Sharif Christianson on 01-20-2025 Lymphocytes Auto (Unsp spec) [#/Vol] 1.00 10*3/uL 0.83-4.[address] [facility] Absolute neutrophil countOrd ered By: Sharif Christianson on 01-20-2025 Neutrophils (Bld) [#/Vol] 4.7 10*3/uL 2.0-7.[address] [facility] Anion gap in Serum or Plasma Ordered By: Sharif Christianson on 01-20-2025 Anion gap [Moles/Vol] 14 mmol/L 5- [facility] Automated lymphocyte count a s percentage of total leukocytesOrdered By: Sharif Christianson on 01-20-2025 Lymphocytes/100 WBC Auto (Unsp spec) 15.0 % Low 19- [facility] BUN/creatinine ratioOrdered By: Sharif Christianson on 01-20-2025 Urea nitrogen/Creatinine [Mass ratio] 13.6 mg/mg 10- [facility] Basophil percentageOrdered B y: Sharif Christianson on 01-20-2025 Basophils/100 WBC (Bld) 0.6 % 0-1 [facility] Bilirubin, totalOrdered By: Sharif Christianson on 01-20-2025 Bilirubin [Mass/Vol] 0.32 mg/dL 0.00-1.30 [facility] CBC W/Diff, Automatedon Absolute Lymph 1.00 X10 3/uL Normal 0.83-4.[address] [facility] Comment on above: Order Comment: Order Date: 01/20/25Order Info: [id number] - CBCD Performed By: #### L 500.4050, L501.9985, L100.0100, L506.0400, L500.4100 ####[facility] [address] [place], [place], [phone] Absolute Neut 4.7 X10 3/uL Normal 2.0-7.[address] [facility] Comment on above: Order Comment: Order Date: 01/20/25Order Info: [id number] - CBCD Performed By: #### L 500.4050, L501.9985, L100.0100, L506.0400, L500.4100 ####[facility] [address] [place], [place], [phone] Basophils/100 WBC (Bld) 0.6 % Normal 0-1 [facility] Comment on above: Order Comment: Order Date: 01/20/25Order Info: [id number] - CBCD Performed By: #### L 500.4050, L501.9985, L100.0100, L506.0400, L500.4100 ####[facility] [address] [place], [address] Eosinophils/100 WBC (Bld) 1.3 % Normal 0-[address] [facility] Comment on above: Order Comment: Order Date: 01/20/25Order Info: [id number] - CBCD Performed By: #### L 500.4050, L501.9985, L100.0100, L506.0400, L500.4100 ####[facility] [address] [place], [address] Erythrocyte distribution width (RBC) [Ratio] 18.6 % High 11.6-14.[address] [facility] Comment on above: Order Comment: Order Date: 01/20/25Order Info: [id number] - CBCD Performed By: #### L 500.4050, L501.9985, L100.0100, L506.0400, L500.4100 ####[facility] [address] [place], [address] Hematocrit (Bld) [Volume fraction] 35.1 % Low 37-[address] [facility] Comment on above: Order Comment: Order Date: 01/20/25Order Info: [id number] - CBCD Performed By: #### L 500.4050, L501.9985, L100.0100, L506.0400, L500.4100 ####[facility] [address] [place], [address] Hemoglobin (Bld) [Mass/Vol] 10.9 g/dL Low 12.0-15.[address] [facility] Comment on above: Order Comment: Order Date: 01/20/25Order Info: [id number] - CBCD Performed By: #### L 500.4050, L501.9985, L100.0100, L506.0400, L500.4100 ####[facility] [address] [place], [address] IG% 0.400 Normal 0.0-0.[address] [facility] Comment on above: Order Comment: Order Date: 01/20/25Order Info: [id number] - CBCD Result Comment: IG% - Immature Granulocytes (promyelocytes, myelocytes andmetamyelocytes) > 1% indicates that a LEFT SHIFT is Present. Performed By: #### L 500.4050, L501.9985, L100.0100, L506.0400, L500.4100 ####[facility] [address] [place], [address] Lymphocytes/100 WBC (Bld) 15.0 % Low 19-[address] [facility] Comment on above: Order Comment: Order Date: 01/20/25Order Info: [id number] - CBCD Performed By: #### L 500.4050, L501.9985, L100.0100, L506.0400, L500.4100 ####[facility] [address] [place], [address] MCH (RBC) [Entitic mass] 25.7 pg Low 27.0-32.[address] [facility] Comment on above: Order Comment: Order Date: 01/20/25Order Info: [id number] - CBCD Performed By: #### L 500.4050, L501.9985, L100.0100, L506.0400, L500.4100 ####[facility] [address] [place], [address] MCHC (RBC) [Mass/Vol] 31.1 g/dL Low 32-36 [facility] Comment on above: Order Comment: Order Date: 01/20/25Order Info: [id number] - CBCD Performed By: #### L 500.4050, L501.9985, L100.0100, L506.0400, L500.4100 ####[facility] [address] [place], [address] MCV (RBC) [Entitic vol] 82.8 fL Normal 81-99 [facility] Comment on above: Order Comment: Order Date: 01/20/25Order Info: [id number] - CBCD Performed By: #### L 500.4050, L501.9985, L100.0100, L506.0400, L500.4100 ####[facility] [address] [place], [address] Monocytes/100 WBC (Bld) 11.8 % High 0-10 [facility] Comment on above: Order Comment: Order Date: 01/20/25Order Info: [id number]- - CBCD Performed By: #### L 500.4050, L501.9985, L100.0100, L506.0400, L500.4100 ####[facility] [address] [place], [address] Neutrophils/100 WBC (Bld) 70.9 % High 47-[address] [facility] Comment on above: Order Comment: Order Date: 01/20/25Order Info: [id number]- - CBCD Performed By: #### L 500.4050, L501.9985, L100.0100, L506.0400, L500.4100 ####[facility] [address] [place], [address] Nucleated RBC (Bld) [#/Vol] 0 10*3/uL Normal 0-[address] [facility] Comment on above: Order Comment: Order Date: 01/20/25Order Info: [id number] - CBCD Performed By: #### L 500.4050, L501.9985, L100.0100, L506.0400, L500.4100 ####[facility] [address] [place], [address] Platelet mean volume (Bld) [Entitic vol] 9.0 fL Normal 6.2-12.[address] [facility] Comment on above: Order Comment: Order Date: 01/20/25Order Info: [id number] - CBCD Performed By: #### L 500.4050, L501.9985, L100.0100, L506.0400, L500.4100 ####[facility] [address] [place], [address] Platelets (Bld) [#/Vol] 334 10*3/uL Normal 150-[address] [facility] Comment on above: Order Comment: Order Date: 01/20/25Order Info: [id number] - CBCD Performed By: #### L 500.4050, L501.9985, L100.0100, L506.0400, L500.4100 ####[facility] [address] [place], [address] RBC (Bld) [#/Vol] 4.24 10*6/uL Normal 4.2-5.4 [facility] Comment on above: Order Comment: Order Date: 01/20/25Order Info: [id number] - CBCD Performed By: #### L 500.4050, L501.9985, L100.0100, L506.0400, L500.4100 ####[facility] [address] [place], [address] RDW SD 54.9 fl High 35.1-43.[address] [facility] Comment on above: Order Comment: Order Date: 01/20/25Order Info: [id number] - CBCD Performed By: #### L 500.4050, L501.9985, L100.0100, L506.0400, L500.4100 ####[facility] [address] [place], [address] WBC (Bld) [#/Vol] 6.7 10*3/uL Normal 4.4-11.0 [facility] Comment on above: Order Comment: Order Date: 01/20/25Order Info: [id number] - CBCD Performed By: #### L 500.4050, L501.9985, L100.0100, L506.0400, L500.4100 ####[facility] [address] [place], [place], [address] Calculated very low density lipoprotein (VLDL) cholesterol measurementOrdered By: Sharif Christianson on 01-20-2025 Calculated very low density lipoprotein (VLDL) cholesterol measurement 27 mg/dL 5-[address] [facility] Carbon dioxide, total [Moles /volume] in Central venous bloodOrdered By: Sharif Christianson on 01-20-2025 CO2 [Moles/Vol] 22.5 mmol/L 21.0-32.[address] [facility] Chloride assayOrdered By: Yessenia Christianson on 01-20-2025 Chloride [Moles/Vol] 101 mmol/L 98-108 [facility] Comprehensive Metabolic Prof ilon 01-20-2025 Albumin [Mass/Vol] 4.1 g/dL Normal 3.4-4.8 [facility] Comment on above: Order Comment: Order Date: 01/20/25Order Info: [id number] - CMPOrder Info: [id number] - LIPIDOrder Info: [id number] - T4F Performed By: #### L 500.4050, L501.9985, L100.0100, L506.0400, L500.4100 ####[facility] [address] [place], [address] Albumin/Globulin [Mass ratio] 1.3 {ratio} Normal 0.9-2.[address] [facility] Comment on above: Order Comment: Order Date: 01/20/25Order Info: [id number] - CMPOrder Info: [id number] - LIPIDOrder Info: [id number] - T4F Performed By: #### L 500.4050, L501.9985, L100.0100, L506.0400, L500.4100 ####[facility] [address] [place], [address] ALK PHOS 82 U/L Normal 35-[address] [facility] Comment on above: Order Comment: Order Date: 01/20/25Order Info: [id number] - CMPOrder Info: [id number] - LIPIDOrder Info: [id number] - T4F Performed By: #### L 500.4050, L501.9985, L100.0100, L506.0400, L500.4100 ####[facility] [address] [place], [address] ALT [Catalytic activity/Vol] 9 U/L Normal <=[address] [facility] Comment on above: Order Comment: Order Date: 01/20/25Order Info: [id number]- - CMPOrder Info: [id number] - LIPIDOrder Info: [id number] - T4F Performed By: #### L 500.4050, L501.9985, L100.0100, L506.0400, L500.4100 ####[facility] [address] [place], [place], [id number] AST [Catalytic activity/Vol] 16 U/L Normal <=[address] [facility] Comment on above: Order Comment: Order Date: 01/20/25Order Info: [id number] - CMPOrder Info: [id number] - LIPIDOrder Info: [id number] - T4F Performed By: #### L 500.4050, L501.9985, L100.0100, L506.0400, L500.4100 ####[facility] [address] [place], [address] Bilirubin [Mass/Vol] 0.32 mg/dL Normal 0.00-1.30 [facility] Comment on above: Order Comment: Order Date: 01/20/25Order Info: [id number] - CMPOrder Info: [id number] - LIPIDOrder Info: [id number] - T4F Performed By: #### L 500.4050, L501.9985, L100.0100, L506.0400, L500.4100 ####[facility] [address] [place], [address] BUN/CRE 13.6 RATIO Normal 10-[address] [facility] Comment on above: Order Comment: Order Date: 01/20/25Order Info: [id number] - CMPOrder Info: [id number] - LIPIDOrder Info: 7 - T4F Performed By: #### L 500.4050, L501.9985, L100.0100, L506.0400, L500.4100 ####[facility] [address] [place], [address] Calcium [Mass/Vol] 9.4 mg/dL Normal 7.6-11.0 [facility] Comment on above: Order Comment: Order Date: 01/20/25Order Info: [id number] - CMPOrder Info: [id number] - LIPIDOrder Info: 7 - T4F Performed By: #### L 500.4050, L501.9985, L100.0100, L506.0400, L500.4100 ####[facility] [address] [place], [address] Chloride [Moles/Vol] 101 mmol/L Normal 98-108 [facility] Comment on above: Order Comment: Order Date: 01/20/25Order Info: [id number] - CMPOrder Info: [id number] - LIPIDOrder Info: 7 - T4F Performed By: #### L 500.4050, L501.9985, L100.0100, L506.0400, L500.4100 ####[facility] [address] [place], [address] CO2 [Moles/Vol] 22.5 mmol/L Normal 21.0-32.[address] [facility] Comment on above: Order Comment: Order Date: 01/20/25Order Info: [id number] - CMPOrder Info: [id number] - LIPIDOrder Info: [id number] - T4F Performed By: #### L 500.4050, L501.9985, L100.0100, L506.0400, L500.4100 ####[facility] [address] [place], [address] Creatinine [Mass/Vol] 0.80 mg/dL Normal 0.70-1.20 [facility] Comment on above: Order Comment: Order Date: 01/20/25Order Info: [id number] - CMPOrder Info: [id number] - LIPIDOrder Info: [id number] - T4F Performed By: #### L 500.4050, L501.9985, L100.0100, L506.0400, L500.4100 ####[facility] [address] [place], [address] GAP 14 Normal 5-[address] [facility] Comment on above: Order Comment: Order Date: 01/20/25Order Info: [id number] - CMPOrder Info: [id number] - LIPIDOrder Info: [id number] - T4F Performed By: #### L 500.4050, L501.9985, L100.0100, L506.0400, L500.4100 ####[facility] [address] [place], [address] GFR/1.73 sq M.predicted among non-blacks MDRD (S/P/Bld) [Vol rate/Area] 79 mL/min/{1.73_m2} Normal >60 [facility] Comment on above: Order Comment: Order Date: 01/20/25Order Info: [id number] - CMPOrder Info: [id number] - LIPIDOrder Info: [id number] - T4F Result Comment: mL/m in/1.73m2 CKD-EPI Creatinine Equation (2020) Performed By: #### L 500.4050, L501.9985, L100.0100, L506.0400, L500.4100 ####[facility] [address] [place], [address] Globulin (S) [Mass/Vol] 3.2 g/dL Normal 2.2-4.2 [facility] Comment on above: Order Comment: Order Date: 01/20/25Order Info: 07- - CMPOrder Info: [id number] - LIPIDOrder Info: [id number] - T4F Performed By: #### L 500.4050, L501.9985, L100.0100, L506.0400, L500.4100 ####[facility] [address] [place], [address] Glucose [Mass/Vol] 162 mg/dL High 70-99 [facility] Comment on above: Order Comment: Order Date: 01/20/25Order Info: [id number] - CMPOrder Info: [id number] - LIPIDOrder Info: [id number] - T4F Performed By: #### L 500.4050, L501.9985, L100.0100, L506.0400, L500.4100 ####[facility] [address] [place], [address] Potassium [Moles/Vol] 3.9 mmol/L Normal 3.3-5.1 [facility] Comment on above: Order Comment: Order Date: 01/20/25Order Info: [id number] - CMPOrder Info: [id number] - LIPIDOrder Info: [id number] - T4F Performed By: #### L 500.4050, L501.9985, L100.0100, L506.0400, L500.4100 ####[facility] [address] [place], [address] Sodium [Moles/Vol] 138 mmol/L Normal 133-145 [facility] Comment on above: Order Comment: Order Date: 01/20/25Order Info: [id number] - CMPOrder Info: [id number] - LIPIDOrder Info: [id number] - T4F Performed By: #### L 500.4050, L501.9985, L100.0100, L506.0400, L500.4100 ####[facility] [address] [place], [address] T PROT 7.3 g/dL Normal 5.9-8.[address] [facility] Comment on above: Order Comment: Order Date: 01/20/25Order Info: [id number] - CMPOrder Info: [id number] - LIPIDOrder Info: [id number] - T4F Performed By: #### L 500.4050, L501.9985, L100.0100, L506.0400, L500.4100 ####[facility] [address] [place], [address] Urea nitrogen [Mass/Vol] 11 mg/dL Normal 4-[address] [facility] Comment on above: Order Comment: Order Date: 01/20/25Order Info: [id number] - CMPOrder Info: [id number] - LIPIDOrder Info: [id number] - T4F Performed By: #### L 500.4050, L501.9985, L100.0100, L506.0400, L500.4100 ####[facility] [address] [place], [place], [address] Eosinophil percentageOrdered By: Sharif Christianson on 01-20-2025 Eosinophils/100 WBC (Bld) 1.3 % 0-[address] [facility] Erythrocyte distribution wid th ratioOrdered By: Sharif Christianson on 01-20-2025 Erythrocyte distribution width (RBC) [Ratio] 18.6 % High 11.6-14.[address] [facility] Erythrocyte distribution wid th standard deviationOrdered By: Sharif Christianson on 01-20-2025 Erythrocyte distribution width (RBC) [Ratio] 54.9 fl High 35.1-43.[address] [facility] Glomerular filtration rate ( GFR) estimation/1.73 [...] (Bld) [Volume fraction] 35.1 % Low 37-[address] [facility] Hemoglobin A1con 01-20-2025 HbA1c (Bld) [Mass fraction] 7.6 % High <=5.[address] [facility] Comment on above: Order Comment: Order Date: 01/20/25Order Info: [id number] - A1C Result Comment: Norm al < 5.7 % Prediabetic 5.7 - 6.4 % Diabetic >or= 6.5 % Please note range changes. Performed By: #### L 500.4050, L501.9985, L100.0100, L506.0400, L500.4100 ####[facility] [address] [place], [address] Hemoglobin A1c percentageOrd ered By: Sharif Christianson on 01-20-2025 HbA1c (Bld) [Mass fraction] 7.6 % High <5.[address] [facility] Comment on above: Normal < 5.7 % Predi abetic 5.7 - 6.4 % Diabetic >or= 6.5 % Please note range changes. Hemoglobin measurementOrdere d By: Sharif Christianson on 01-20-2025 Hemoglobin (Bld) [Mass/Vol] 10.9 g/dL Low 12.0-15.[address] [facility] Immature granulocytes/100 WB C Auto (Bld)Ordered By: Sharif Christianson on 01-20-2025 Immature granulocytes/100 WBC (Bld) 0.400 % 0.0-0.[address] [facility] Comment on above: IG% - Immature Granu locytes (promyelocytes, myelocytes and metamyelocytes) > 1% indicates that a LEFT SHIFT is Present. LDL calc ser/plasOrdered By: Sharif Christianson on 01-20-2025 Cholesterol in LDL [Mass/Vol] 48 mg/dL [facility] Comment on above: Dersbkplvi=044-207 m g/dL & Higher Ylle=709 mg/dL or greater Laboratory - Chemistry and C hemistry - challengeOrdered By: Sharif Christianson on 01-20-2025 AST [Catalytic activity/Vol] 16 U/L <[address] [facility] Lipid Profileon 01-20-2025 CHOL:HDL 2.[address] [facility] Comment on above: Order Comment: Order Date: 01/20/25Order Info: [id number] - CMPOrder Info: [id number] - LIPIDOrder Info: [id number] - [id number] Performed By: #### L 500.4050, L501.9985, L100.0100, L506.0400, L500.4100 ####[facility] [address] [place], [address] Cholesterol [Mass/Vol] 129 mg/dL Normal <=200 [facility] Comment on above: Order Comment: Order Date: 01/20/25Order Info: [id number] - CMPOrder Info: [id number] - LIPIDOrder Info: [id number] T4 Result Comment: Chol esterol level, Desirable <200 mg/dLBorderline high cholesterol 200-239 mg/dLHigh cholesterol >=240 mg/dLRecommendations of the NCEP Adult Treatment Panel for thefollowing risk-cutoff thresholds for the [place] Americanpulation. Performed By: #### L 500.4050, L501.9985, L100.0100, L506.0400, L500.4100 ####[facility] [address] [place], [address] Cholesterol in HDL [Mass/Vol] 54 mg/dL Normal [facility] Comment on above: Order Comment: Order Date: 01/20/25Order Info: [id number] - CMPOrder Info: [id number] - LIPIDOrder Info: [id number] T4 Result Comment: Ledy onal Cholesterol Education Program (NCEP) guidelines:<40 mg/dL: Low HDL-cholesterol (major risk factor for CHD)>= 60 mg/dL: High HDL-cholesterol (negative risk factor forCHD)HDL-cholesterol is affected by a number of factors, e.g.smoking, exercise, hormones, sex and age. Performed By: #### L 500.4050, L501.9985, L100.0100, L506.0400, L500.4100 ####[facility] [address] [place], [address] Cholesterol in LDL [Mass/Vol] 48 mg/dL Normal [facility] Comment on above: Order Comment: Order Date: 01/20/25Order Info: [id number] - CMPOrder Info: [id number] - LIPIDOrder Info: [id number] - T4F Result Comment: Bord rvgeou=380-602 mg/dL Higher Mnnv=024 mg/dL or greater Performed By: #### L 500.4050, L501.9985, L100.0100, L506.0400, L500.4100 ####[facility] [address] [place], [address] Cholesterol in VLDL [Mass/Vol] 27 mg/dL Normal 5-[address] [facility] Comment on above: Order Comment: Order Date: 01/20/25Order Info: [id number] - CMPOrder Info: [id number] - LIPIDOrder Info: [id number] - T4F Performed By: #### L 500.4050, L501.9985, L100.0100, L506.0400, L500.4100 ####[facility] [address] [place], [address] Triglyceride [Mass/Vol] 137 mg/dL Normal [facility] Comment on above: Order Comment: Order Date: 01/20/25Order Info: [id number] - CMPOrder Info: [id number] - LIPIDOrder Info: [id number] - T4F Result Comment: The drugs N-Acetylcysteine and Metamizole may falselydepress this assay.Normal range: <150 mg/dLBorderline High: 150-199 mg/dLHigh: 200-499 mg/dLVery High: >500 mg/dL Performed By: #### L 500.4050, L501.9985, L100.0100, L506.0400, L500.4100 ####[facility] [address] [place], [address] MCV (mean corpuscular volume ) determinationOrdered By: Sharif Christianson on 01-20-2025 MCV (RBC) [Entitic vol] 82.8 fL 81-99 [facility] Mean corpuscular hemoglobin (MCH) determinationOrdered By: Sharif Christianson on 01-20-2025 MCH (RBC) [Entitic mass] 25.7 pg Low 27.0-32.[address] [facility] Mean corpuscular hemoglobin concentration (MCHC) determinationOrdered By: Sharif Christianson on 01-20-2025 MCHC (RBC) [Mass/Vol] 31.1 g/dL Low 32-36 [facility] Mean platelet volume determi nationOrdered By: Sharif Christianson on 01-20-2025 Platelet mean volume (Bld) [Entitic vol] 9.0 fL 6.2-12.[address] [facility] Monocyte percentageOrdered B y: Sharif Christianson on 01-20-2025 Monocytes/100 WBC (Bld) 11.8 % High 0-10 [facility] Neutrophil percentageOrdered By: Sharif Christianson on 01-20-2025 Neutrophils/100 WBC (Bld) 70.9 % High 47-[address] [facility] No Panel InformationOrdered By: Sharif Christianson on 01-20-2025 16 U/L <[address] [facility] Nucleated red blood cell per centageOrdered By: Sharif Christianson on 01-20-2025 Nucleated RBC/100 WBC (Bld) [Ratio] 0 % 0-[address] [facility] Platelet countOrdered By: Yessenia Christianson on 01-20-2025 Platelets (Bld) [#/Vol] 334 10*3/uL 150-[address] [facility] Potassium measurement (mass/ volume)Ordered By: Sharif Christianson on 01-20-2025 Potassium (Unsp spec) [Mass/Vol] 3.9 mmol/L 3.3-5.[address] [facility] RBC Auto (Bld) [#/Vol]Ordere d By: Sharif Christianson on 01-20-2025 RBC (Bld) [#/Vol] 4.24 10*6/uL 4.2-5.4 [facility] Screening total cholesterol/ high density lipoprotein (HDL) cholesterol ratioOrdered By: Sharif Christianson on 01-20-2025 Cholesterol.total/Cholest irasema in HDL [Mass ratio] 2.40 {ratio} [facility] Serum creatinine measurement (mass/volume)Ordered By: Sharif Christianson on 01-20-2025 Creatinine [Mass/Vol] 0.80 mg/dL 0.70-1.20 [facility] Serum globulin measurementOr dered By: Sharif Christianson on 01-20-2025 Globulin (S) [Mass/Vol] 3.2 g/dL 2.2-4.2 [facility] Serum glucose measurement (m ass/volume)Ordered By: Sharif Christianson on 01-20-2025 Glucose [Mass/Vol] 162 mg/dL High 70-99 [facility] Serum or plasma alanine amezquita otransferase (ALT) measurementOrdered By: Sharif Christianson on 01-20-2025 ALT [Catalytic activity/Vol] 9 U/L <[address] [facility] Serum or plasma albumin joaquin urement (mass/volume)Ordered By: Sharif Christianson on 01-20-2025 Albumin [Mass/Vol] 4.1 g/dL 3.4-4.8 [facility] Serum or plasma albumin/glob ulin mass ratioOrdered By: Sharif Christianson on 01-20-2025 Albumin/Globulin [Mass ratio] 1.3 {ratio} 0.9-2.[address] [facility] Serum or plasma alkaline gumaro sphatase measurementOrdered By: Sharif Christianson on 01-20-2025 ALP [Catalytic activity/Vol] 82 U/L 35-[address] [facility] Serum or plasma calcium joaquin urement (mass/volume)Ordered By: Sharif Christianson on 01-20-2025 Calcium [Mass/Vol] 9.4 mg/dL 7.6-11.0 [facility] Serum or plasma cholesterol in HDL measurement (mass/volume)Ordered By: Sharif Christianson on 01-20-2025 Cholesterol in HDL [Mass/Vol] 54 mg/dL >[address] [facility] Comment on above: National Cholesterol Education Program (NCEP) guidelines:<40 mg/dL: Low HDL-cholesterol (major risk factor for CHD)>= 60 mg/dL: High HDL-cholesterol (negative risk factor for CHD)HDL-cholesterol is affected by a number of factors, e.g. smoking, exercise, hormones, sex and age. Serum or plasma cholesterol measurement (mass/volume)Ordered By: Sharif Christianson on 01-20-2025 Cholesterol [Mass/Vol] 129 mg/dL <201 [facility] Comment on above: Cholesterol level, D esirable <200 mg/dLBorderline high cholesterol 200-239 mg/dLHigh cholesterol >=240 mg/dLRecommendations of the NCEP Adult Treatment Panel for the following risk-cutoff thresholds for the [place] population. Serum or plasma urea nitroge n measurement (mass/volume)Ordered By: Sharif Christianson on 01-20-2025 Urea nitrogen [Mass/Vol] 11 mg/dL 4-[address] [facility] Sodium levelOrdered By: Sharif Christianson on 01-20-2025 Sodium [Moles/Vol] 138 mmol/L 133-145 [facility] T4 Free Directon 01-20-2025 T4 FREE DIRECT 0.40 ng/dL Low 0.76-1.[address] [facility] Comment on above: Order Comment: Order Date: 01/20/25Order Info: [id number] - CMPOrder Info: [id number] - LIPIDOrder Info: [id number] - T4F Performed By: #### L 500.4050, L501.9985, L100.0100, L506.0400, L500.4100 ####[facility] [address] [place], [place], [address] T4 freeOrdered By: Sharif moreira on 01-20-2025 Free T4 [Mass/Vol] 0.40 ng/dL Low 0.76-1.46 [facility] Total proteinOrdered By: Link Christianson on 01-20-2025 Protein [Mass/Vol] 7.3 g/dL 5.9-8.4 [facility] Triglycerides measurementOrd ered By: Sharif Christianson on 01-20-2025 Triglyceride [Mass/Vol] 137 mg/dL <199 [facility] Comment on above: The drugs N-Acetylcy steine and Metamizole may falsely depress this assay. Normal range: <150 mg/dLBorderline High: 150-199 mg/dLHigh: 200-499 mg/dLVery High: >500 mg/dL White blood cell (WBC) count Ordered By: Sharif Christianson on 01-20-2025 WBC (Bld) [#/Vol] 6.7 10*3/uL 4.4-11.0 [facility] Absolute lymphocyte countOrd ered By: [facility] Benjie on 01-04-2025 Lymphocytes Auto (Unsp spec) [#/Vol] 1.07 10*3/uL 0.83-4.[address] [facility] Absolute neutrophil countOrd ered By: [facility] on 01-04-2025 Neutrophils (Bld) [#/Vol] 5.3 10*3/uL 2.0-7.[address] [facility] Anion gap in Serum or Plasma Ordered By: [facility] on 01-04-2025 Anion gap [Moles/Vol] 14 mmol/L 12-30 [facility] Automated lymphocyte count a s percentage of total leukocytesOrdered By: [facility] Wal[facility] on 01-04-2025 Lymphocytes/100 WBC Auto (Unsp spec) 15.0 % Low 19- [facility] BUN/creatinine ratioOrdered By: [facility] on 01-04-2025 Urea nitrogen/Creatinine [Mass ratio] 13.9 mg/mg 06-[address] [facility] Basophil percentageOrdered B y: [facility] Benjie on 01-04-2025 Basophils/100 WBC (Bld) 0.6 % 0-1 [facility] Bilirubin, totalOrdered By: [facility] on 01-04-2025 Bilirubin [Mass/Vol] 0.26 mg/dL 0.00-1.30 [facility] CBC W/Diff, Automatedon 12-17 Absolute Lymph 1.07 X10 3/uL Normal 0.83-4.[address] [facility] Comment on above: Performed By: #### L 501.6120, L500.4050, L501.2300, L100.0100 ####[facility] [address] [place], [address] Absolute Neut 5.3 X10 3/uL Normal 2.0-7.[address] [facility] Comment on above: Performed By: #### L [id number], L500.4050, L501.2300, L100.0100 ####[facility] [address] [place], [address] Basophils/100 WBC (Bld) 0.6 % Normal 0-1 [facility] Comment on above: Performed By: #### L [id number], L500.4050, L501.2300, L100.0100 ####[facility] [address] [place], [address] Eosinophils/100 WBC (Bld) 1.7 % Normal 0-[address] [facility] Comment on above: Performed By: #### L [id number], L500.4050, L501.2300, L100.0100 ####[facility] [address] [place], [address] Erythrocyte distribution width (RBC) [Ratio] 17.7 % High 11.6-14.[address] [facility] Comment on above: Performed By: #### L [id number], L500.4050, L501.2300, L100.0100 ####[facility] [address] [place], [address] Hematocrit (Bld) [Volume fraction] 32.1 % Low 37-[address] [facility] Comment on above: Performed By: #### L 501.9520, L500.4050, L501.2300, L100.0100 ####[facility] [address] [place], [address] Hemoglobin (Bld) [Mass/Vol] 10.3 g/dL Low 12.0-15.[address] [facility] Comment on above: Performed By: #### L [id number], L500.4050, L501.2300, L100.0100 ####[facility] [address] [place], [address] IG% 0.400 Normal 0.0-0.[address] [facility] Comment on above: Result Comment: IG% - Immature Granulocytes (promyelocytes, myelocytes andmetamyelocytes) > 1% indicates that a LEFT SHIFT is Present. Performed By: #### L 501.9520, L500.4050, L501.2300, L100.0100 ####[facility] [address] [place], [address] Lymphocytes/100 WBC (Bld) 15.0 % Low 19-[address] [facility] Comment on above: Performed By: #### L [id number], L500.4050, L501.2300, L100.0100 ####[facility] [address] [place], [address] MCH (RBC) [Entitic mass] 26.1 pg Low 27.0-32.[address] [facility] Comment on above: Performed By: #### L 501.9520, L500.4050, L501.2300, L100.0100 ####[facility] [address] [place], [address] MCHC (RBC) [Mass/Vol] 32.1 g/dL Normal 32-36 [facility] Comment on above: Performed By: #### L 501.9520, L500.4050, L501.2300, L100.0100 ####[facility] [address] [place], [address] MCV (RBC) [Entitic vol] 81.3 fL Normal 81-99 [facility] Comment on above: Performed By: #### L 501.9520, L500.4050, L501.2300, L100.0100 ####[facility] [address] [place], [address] Monocytes/100 WBC (Bld) 8.4 % Normal 0-10 [facility] Comment on above: Performed By: #### L 501.9520, L500.4050, L501.2300, L100.0100 ####[facility] [address] [place], [address] Neutrophils/100 WBC (Bld) 73.9 % High 47-[address] [facility] Comment on above: Performed By: #### L 501.9520, L500.4050, L501.2300, L100.0100 ####[facility] [address] [place], [address] Nucleated RBC (Bld) [#/Vol] 0 10*3/uL Normal 0-[address] [facility] Comment on above: Performed By: #### L 501.9520, L500.4050, L501.2300, L100.0100 ####[facility] [address] [place], [address] Platelet mean volume (Bld) [Entitic vol] 8.6 fL Normal 6.2-12.[address] [facility] Comment on above: Performed By: #### L 501.9520, L500.4050, L501.2300, L100.0100 ####[facility] [address] [place], [address] Platelets (Bld) [#/Vol] 292 10*3/uL Normal 150-[address] [facility] Comment on above: Performed By: #### L 501.9520, L500.4050, L501.2300, L100.0100 ####[facility] [address] [place], [address] RBC (Bld) [#/Vol] 3.95 10*6/uL Low 4.2-5.4 [facility] Comment on above: Performed By: #### L 501.9520, L500.4050, L501.2300, L100.0100 ####[facility] [address] [place], [address] RDW SD 53.0 fl High 35.1-43.[address] [facility] Comment on above: Performed By: #### L 501.9520, L500.4050, L501.2300, L100.0100 ####[facility] [address] [place], [address] WBC (Bld) [#/Vol] 7.2 10*3/uL Normal 4.4-11.0 [facility] Comment on above: Performed By: #### L 501.9520, L500.4050, L501.2300, L100.0100 ####[facility] [address] [place], [address] Carbon dioxide, total [Moles /volume] in Central venous bloodOrdered By: Shannan Waldrop on 01-04-2025 CO2 [Moles/Vol] 21.4 mmol/L 21.0-32.[address] [facility] Chloride assayOrdered By: Adriana Waldrop on 01-04-2025 Chloride [Moles/Vol] 102 mmol/L 98-108 [facility] Comprehensive Metabolic Prof ilon 01-04-2025 Albumin [Mass/Vol] 3.8 g/dL Normal 3.4-4.8 [facility] Comment on above: Performed By: #### L 501.9520, L500.4050, L501.2300, L100.0100 ####[facility] [address] [place], [address] Albumin/Globulin [Mass ratio] 1.3 {ratio} Normal 0.9-2.[address] [facility] Comment on above: Performed By: #### L 501.9520, L500.4050, L501.2300, L100.0100 ####[facility] [address] [place], [address] ALK PHOS 77 U/L Normal 35-[address] [facility] Comment on above: Performed By: #### L 501.9520, L500.4050, L501.2300, L100.0100 ####[facility] [address] [place], [address] ALT [Catalytic activity/Vol] 8 U/L Normal <=[address] [facility] Comment on above: Performed By: #### L 501.9520, L500.4050, L501.2300, L100.0100 ####[facility] [address] [place], [address] AST [Catalytic activity/Vol] 16 U/L Normal <=[address] [facility] Comment on above: Performed By: #### L 501.9520, L500.4050, L501.2300, L100.0100 ####[facility] [address] [place], [address] Bilirubin [Mass/Vol] 0.26 mg/dL Normal 0.00-1.30 [facility] Comment on above: Performed By: #### L 501.9520, L500.4050, L501.2300, L100.0100 ####[facility] [address] [place], [address] BUN/CRE 13.9 RATIO Normal 10-[address] [facility] Comment on above: Performed By: #### L 501.9520, L500.4050, L501.2300, L100.0100 ####[facility] [address] [place], [address] Calcium [Mass/Vol] 8.9 mg/dL Normal 7.6-11.0 [facility] Comment on above: Performed By: #### L 501.9520, L500.4050, L501.2300, L100.0100 ####[facility] [address] [place], [address] Chloride [Moles/Vol] 102 mmol/L Normal 98-108 [facility] Comment on above: Performed By: #### L 501.9520, L500.4050, L501.2300, L100.0100 ####[facility] [address] [place], [address] CO2 [Moles/Vol] 21.4 mmol/L Normal 21.0-32.[address] [facility] Comment on above: Performed By: #### L 501.9520, L500.4050, L501.2300, L100.0100 ####[facility] [address] [place], [address] Creatinine [Mass/Vol] 0.82 mg/dL Normal 0.70-1.20 [facility] Comment on above: Performed By: #### L 501.9520, L500.4050, L501.2300, L100.0100 ####[facility] [address] [place], [address] ECRCL 62.82 ml/min Normal 50-[address] [facility] Comment on above: Performed By: #### L 501.9520, L500.4050, L501.2300, L100.0100 ####[facility] [address] [place], [address] GAP 14 Normal 5-[address] [facility] Comment on above: Performed By: #### L 501.9520, L500.4050, L501.2300, L100.0100 ####[facility] [address] [place], [address] GFR/1.73 sq M.predicted among non-blacks MDRD (S/P/Bld) [Vol rate/Area] 77 mL/min/{1.73_m2} Normal >60 [facility] Comment on above: Result Comment: mL/m in/1.73m2 CKD-EPI Creatinine Equation (2020) Performed By: #### L 501.9520, L500.4050, L501.2300, L100.0100 ####[facility] [address] [place], [address] Globulin (S) [Mass/Vol] 2.9 g/dL Normal 2.2-4.2 [facility] Comment on above: Performed By: #### L 501.9520, L500.4050, L501.2300, L100.0100 ####[facility] [address] [place], [address] Glucose [Mass/Vol] 221 mg/dL High 70-99 [facility] Comment on above: Performed By: #### L 501.9520, L500.4050, L501.2300, L100.0100 ####[facility] [address] [place], [address] Potassium [Moles/Vol] 3.9 mmol/L Normal 3.3-5.1 [facility] Comment on above: Performed By: #### L 501.9520, L500.4050, L501.2300, L100.0100 ####[facility] [address] [place], [address] Sodium [Moles/Vol] 138 mmol/L Normal 133-145 [facility] Comment on above: Performed By: #### L 501.9520, L500.4050, L501.2300, L100.0100 ####[facility] [address] [place], [address] T PROT 6.6 g/dL Normal 5.9-8.[address] [facility] Comment on above: Performed By: #### L 501.9520, L500.4050, L501.2300, L100.0100 ####[facility] [address] [place], [address] Urea nitrogen [Mass/Vol] 11 mg/dL Normal 4-[address] [facility] Comment on above: Performed By: #### L 501.9506, L500.4050, L501.2300, L100.0100 ####[facility] [address] [place], [place], [address] Eosinophil percentageOrdered By: [facility] Benjie on 01-04-2025 Eosinophils/100 WBC (Bld) 1.7 % 0-[address] [facility] Erythrocyte distribution wid th ratioOrdered By: [facility] on 01-04-2025 Erythrocyte distribution width (RBC) [Ratio] 17.7 % High 11.6-14.[address] [facility] Erythrocyte distribution wid th standard deviationOrdered By: [facility] on 01-04-2025 Erythrocyte distribution width (RBC) [Ratio] 53.0 fl High 35.1-43.[address] [facility] Glomerular filtration rate ( GFR) estimation/1.73 sq m using serum, plasma, or whole bOrdered By: [facility] Benjie on 01-04-2025 GFR/1.73 sq M.predicted among non-blacks MDRD (S/P/Bld) [Vol rate/Area] 77 mL/min/{1.73_m2} >60 [facility] Comment on above: mL/min/1.73m2 CKD-EP I Creatinine Equation (2020) Hematocrit Auto (Bld) [Volum e fraction]Ordered By: [facility] Benjie on 01-04-2025 Hematocrit (Bld) [Volume fraction] 32.1 % Low 37-[address] [facility] Hemoglobin measurementOrdere d By: [facility] on 01-04-2025 Hemoglobin (Bld) [Mass/Vol] 10.3 g/dL Low 12.0-15.[address] [facility] Immature granulocytes/100 WB C Auto (Bld)Ordered By: [facility] on 01-04-2025 Immature granulocytes/100 WBC (Bld) 0.400 % 0.0-0.[address] [facility] Comment on above: IG% - Immature Granu locytes (promyelocytes, myelocytes and metamyelocytes) > 1% indicates that a LEFT SHIFT is Present. Laboratory - Chemistry and C hemistry - challengeOrdered By: Shannan Waldrop on 01-04-2025 AST [Catalytic activity/Vol] 16 U/L <[address] [facility] MCV (mean corpuscular volume ) determinationOrdered By: Shannan Waldrop on 01-04-2025 MCV (RBC) [Entitic vol] 81.3 fL 81-99 [facility] Mean corpuscular hemoglobin (MCH) determinationOrdered By: Shannan Waldrop on 01-04-2025 MCH (RBC) [Entitic mass] 26.1 pg Low 27.0-32.[address] [facility] Mean corpuscular hemoglobin concentration (MCHC) determinationOrdered By: Shannan Waldrop on 01-04-2025 MCHC (RBC) [Mass/Vol] 32.1 g/dL 32-36 [facility] Mean platelet volume determi nationOrdered By: Shannan Waldrop on 01-04-2025 Platelet mean volume (Bld) [Entitic vol] 8.6 fL 6.2-12.[address] [facility] Monocyte percentageOrdered B y: Shannan Waldrop on 01-04-2025 Monocytes/100 WBC (Bld) 8.4 % 0-10 [facility] Neutrophil percentageOrdered By: Shannan Waldrop on 01-04-2025 Neutrophils/100 WBC (Bld) 73.9 % High 47-[address] [facility] Nucleated red blood cell per centageOrdered By: Shannan Waldrop on 01-04-2025 Nucleated RBC/100 WBC (Bld) [Ratio] 0 % 0-[address] [facility] Oncology Visit Reporton 12-17 Oncology Visit Report Normal [facility] Phosphoruson 01-04-2025 Phosphate [Mass/Vol] 3.8 mg/dL Normal 2.7-4.5 [facility] Comment on above: Performed By: #### L 501.1660, L500.4050, L501.2300, L100.0100 ####[facility] [address] [place], [address] Platelet countOrdered By: Adriana Waldrop on 01-04-2025 Platelets (Bld) [#/Vol] 292 10*3/uL 150-[address] [facility] Potassium measurement (mass/ volume)Ordered By: Shannan Waldrop on 01-04-2025 Potassium (Unsp spec) [Mass/Vol] 3.9 mmol/L 3.3-5.[address] [facility] RBC Auto (Bld) [#/Vol]Ordere d By: Shannan Waldrop on 01-04-2025 RBC (Bld) [#/Vol] 3.95 10*6/uL Low 4.2-5.4 [facility] Serum creatinine measurement (mass/volume)Ordered By: Shannan Waldrop on 01-04-2025 Creatinine [Mass/Vol] 0.82 mg/dL 0.70-1.20 [facility] Serum globulin measurementOr dered By: Shannan Waldrop on 01-04-2025 Globulin (S) [Mass/Vol] 2.9 g/dL 2.2-4.2 [facility] Serum glucose measurement (m ass/volume)Ordered By: Shannan Waldrop on 01-04-2025 Glucose [Mass/Vol] 221 mg/dL High 70-99 [facility] Serum or plasma alanine amezquita otransferase (ALT) measurementOrdered By: Shannan Waldrop on 01-04-2025 ALT [Catalytic activity/Vol] 8 U/L <[address] [facility] Serum or plasma albumin joaquin urement (mass/volume)Ordered By: Shannan Waldrop on 01-04-2025 Albumin [Mass/Vol] 3.8 g/dL 3.4-4.8 [facility] Serum or plasma albumin/glob ulin mass ratioOrdered By: Shannan Waldrop on 01-04-2025 Albumin/Globulin [Mass ratio] 1.3 {ratio} 0.9-2.[address] [facility] Serum or plasma alkaline gumaro sphatase measurementOrdered By: Shannan Waldrop on 01-04-2025 ALP [Catalytic activity/Vol] 77 U/L 35-[address] [facility] Serum or plasma calcium joaquin urement (mass/volume)Ordered By: Shannan Waldrop on 01-04-2025 Calcium [Mass/Vol] 8.9 mg/dL 7.6-11.0 [facility] Serum or plasma urea nitroge n measurement (mass/volume)Ordered By: Shannan Waldrop on 01-04-2025 Urea nitrogen [Mass/Vol] 11 mg/dL 4-[address] [facility] Sodium levelOrdered By: Spring ja Benjie on 01-04-2025 Sodium [Moles/Vol] 138 mmol/L 133-145 [facility] T4 Free Directon 01-04-2025 T4 FREE DIRECT 0.30 ng/dL Low 0.76-1.[address] [facility] Comment on above: Order Comment: ADD O N FROM EARLIER TODAY, THANKS Performed By: #### L 506.0400 ####[facility] [address] [place], [address] T4 freeOrdered By: Shannan julio on 01-04-2025 Free T4 [Mass/Vol] 0.30 ng/dL Low 0.76-1.46 [facility] TSH DL <= 0.005 mIU/L QnOrde red By: Shannan Waldrop on 01-04-2025 TSH Qn 33.000 uIU/mL High 0.300-4.[address] [facility] Thyroid Stim Hormone (TSH)on 01-04-2025 TSH 33.000 uIU/mL High 0.300-4.[address] [facility] Comment on above: Performed By: #### L 501.9520, L500.4050, L501.2300, L100.0100 ####[facility] [address] [place], [address] Total proteinOrdered By: Howard Waldrop on 01-04-2025 Protein [Mass/Vol] 6.6 g/dL 5.9-8.4 [facility] White blood cell (WBC) count Ordered By: Shannan Waldrop on 01-04-2025 WBC (Bld) [#/Vol] 7.2 10*3/uL 4.4-11.0 [facility] CBC W/Diff, Automatedon 04-2 Absolute Lymph 1.18 X10 3/uL Normal 0.83-4.[address] [facility] Comment on above: Performed By: #### L 100.0100, L501.2300, L501.9520, L500.4050 ####[facility] [address] [place], [address] Absolute Neut 5.0 X10 3/uL Normal 2.0-7.[address] [facility] Comment on above: Performed By: #### L 100.0100, L501.2300, L501.9520, L500.4050 ####[facility] [address] [place], [address] Basophils/100 WBC (Bld) 0.4 % Normal 0-1 [facility] Comment on above: Performed By: #### L 100.0100, L501.2300, L501.9520, L500.4050 ####[facility] [address] [place], [address] Eosinophils/100 WBC (Bld) 2.1 % Normal 0-[address] [facility] Comment on above: Performed By: #### L 100.0100, L501.2300, L501.9520, L500.4050 ####[facility] [address] [place], [address] Erythrocyte distribution width (RBC) [Ratio] 17.6 % High 11.6-14.[address] [facility] Comment on above: Performed By: #### L 100.0100, L501.2300, L501.9520, L500.4050 ####[facility] [address] [place], [address] Hematocrit (Bld) [Volume fraction] 32.3 % Low 37-[address] [facility] Comment on above: Performed By: #### L 100.0100, L501.2300, L501.9520, L500.4050 ####[facility] [address] [place], [address] Hemoglobin (Bld) [Mass/Vol] 10.3 g/dL Low 12.0-15.[address] [facility] Comment on above: Performed By: #### L 100.0100, L501.2300, L501.9520, L500.4050 ####[facility] [address] [place], [address] IG% 0.400 Normal 0.0-0.[address] [facility] Comment on above: Result Comment: IG% - Immature Granulocytes (promyelocytes, myelocytes andmetamyelocytes) > 1% indicates that a LEFT SHIFT is Present. Performed By: #### L 100.0100, L501.2300, L501.9520, L500.4050 ####[facility] [address] [place], [address] Lymphocytes/100 WBC (Bld) 16.2 % Low 19-[address] [facility] Comment on above: Performed By: #### L 100.0100, L501.2300, L501.9520, L500.4050 ####[facility] [address] [place], [address] MCH (RBC) [Entitic mass] 26.5 pg Low 27.0-32.[address] [facility] Comment on above: Performed By: #### L 100.0100, L501.2300, L501.9520, L500.4050 ####[facility] [address] [place], [address] MCHC (RBC) [Mass/Vol] 31.9 g/dL Low 32-36 [facility] Comment on above: Performed By: #### L 100.0100, L501.2300, L501.9520, L500.4050 ####[facility] [address] [place], [address] MCV (RBC) [Entitic vol] 83.2 fL Normal 81-99 [facility] Comment on above: Performed By: #### L 100.0100, L501.2300, L501.9520, L500.4050 ####[facility] [address] [place], [address] Monocytes/100 WBC (Bld) 12.0 % High 0-10 [facility] Comment on above: Performed By: #### L 100.0100, L501.2300, L501.9520, L500.4050 ####[facility] [address] [place], [address] Neutrophils/100 WBC (Bld) 68.9 % Normal 47-[address] [facility] Comment on above: Performed By: #### L 100.0100, L501.2300, L501.9520, L500.4050 ####[facility] [address] [place], [address] Nucleated RBC (Bld) [#/Vol] 0 10*3/uL Normal 0-[address] [facility] Comment on above: Performed By: #### L 100.0100, L501.2300, L501.9520, L500.4050 ####[facility] [address] [place], [address] Platelet mean volume (Bld) [Entitic vol] 8.2 fL Normal 6.2-12.[address] [facility] Comment on above: Performed By: #### L 100.0100, L501.2300, L501.9520, L500.4050 ####[facility] [address] [place], [address] Platelets (Bld) [#/Vol] 318 10*3/uL Normal 150-[address] [facility] Comment on above: Performed By: #### L 100.0100, L501.2300, L501.9520, L500.4050 ####[facility] [address] [place], [address] RBC (Bld) [#/Vol] 3.88 10*6/uL Low 4.2-5.4 [facility] Comment on above: Performed By: #### L 100.0100, L501.2300, L501.9520, L500.4050 ####[facility] [address] [place], [address] RDW SD 53.1 fl High 35.1-43.[address] [facility] Comment on above: Performed By: #### L 100.0100, L501.2300, L501.9520, L500.4050 ####[facility] [address] [place], [address] WBC (Bld) [#/Vol] 7.3 10*3/uL Normal 4.4-11.0 [facility] Comment on above: Performed By: #### L 100.0100, L501.2300, L501.9520, L500.4050 ####[facility] [address] [place], [address] Comprehensive Metabolic Prof [facility] 12-14-2024 Albumin [Mass/Vol] 3.8 g/dL Normal 3.4-4.8 [facility] Comment on above: Performed By: #### L 100.0100, L501.2300, L501.9520, L500.4050 ####[facility] [address] [place], [address] Albumin/Globulin [Mass ratio] 1.4 {ratio} Normal 0.9-2.[address] [facility] Comment on above: Performed By: #### L 100.0100, L501.2300, L501.9520, L500.4050 ####[facility] [address] [place], [address] ALK PHOS 87 U/L Normal 35-[address] [facility] Comment on above: Performed By: #### L 100.0100, L501.2300, L501.9520, L500.4050 ####[facility] [address] [place], [address] ALT [Catalytic activity/Vol] 9 U/L Normal <=[address] [facility] Comment on above: Performed By: #### L 100.0100, L501.2300, L501.9520, L500.4050 ####[facility] [address] [place], [address] AST [Catalytic activity/Vol] 14 U/L Normal <=[address] [facility] Comment on above: Performed By: #### L 100.0100, L501.2300, L501.9520, L500.4050 ####[facility] [address] [place], [address] Bilirubin [Mass/Vol] 0.17 mg/dL Normal 0.00-1.30 [facility] Comment on above: Performed By: #### L 100.0100, L501.2300, L501.9520, L500.4050 ####[facility] [address] [place], [address] BUN/CRE 17.3 RATIO Normal 10-[address] [facility] Comment on above: Performed By: #### L 100.0100, L501.2300, L501.9520, L500.4050 ####[facility] [address] [place], [address] Calcium [Mass/Vol] 9.4 mg/dL Normal 7.6-11.0 [facility] Comment on above: Performed By: #### L 100.0100, L501.2300, L501.9520, L500.4050 ####[facility] [address] [place], [address] Chloride [Moles/Vol] 103 mmol/L Normal 98-108 [facility] Comment on above: Performed By: #### L 100.0100, L501.2300, L501.9520, L500.4050 ####[facility] [address] [place], [address] CO2 [Moles/Vol] 22.0 mmol/L Normal 21.0-32.[address] [facility] Comment on above: Performed By: #### L 100.0100, L501.2300, L501.9520, L500.4050 ####[facility] [address] [place], [address] Creatinine [Mass/Vol] 0.58 mg/dL Low 0.70-1.20 [facility] Comment on above: Performed By: #### L 100.0100, L501.2300, L501.9520, L500.4050 ####[facility] [address] [place], [address] ECRCL 64.37 ml/min Normal 50-[address] [facility] Comment on above: Performed By: #### L 100.0100, L501.2300, L501.9520, L500.4050 ####[facility] [address] [place], [address] GAP 13 Normal 5-[address] [facility] Comment on above: Performed By: #### L 100.0100, L501.2300, L501.9520, L500.4050 ####[facility] [address] [place], [address] GFR/1.73 sq M.predicted among non-blacks MDRD (S/P/Bld) [Vol rate/Area] 98 mL/min/{1.73_m2} Normal >60 [facility] Comment on above: Result Comment: mL/m in/1.73m2 CKD-EPI Creatinine Equation (2020) Performed By: #### L 100.0100, L501.2300, L501.9520, L500.4050 ####[facility] [address] [place], [address] Globulin (S) [Mass/Vol] 2.7 g/dL Normal 2.2-4.2 [facility] Comment on above: Performed By: #### L 100.0100, L501.2300, L501.9520, L500.4050 ####[facility] [address] [place], [address] Glucose [Mass/Vol] 157 mg/dL High 70-99 [facility] Comment on above: Performed By: #### L 100.0100, L501.2300, L501.9520, L500.4050 ####[facility] [address] [place], [address] Potassium [Moles/Vol] 4.1 mmol/L Normal 3.3-5.1 [facility] Comment on above: Performed By: #### L 100.0100, L501.2300, L501.9520, L500.4050 ####[facility] [address] [place], [address] Sodium [Moles/Vol] 138 mmol/L Normal 133-145 [facility] Comment on above: Performed By: #### L 100.0100, L501.2300, L501.9520, L500.4050 ####[facility] [address] [place], [address] T PROT 6.5 g/dL Normal 5.9-8.[address] [facility] Comment on above: Performed By: #### L 100.0100, L501.2300, L501.9520, L500.4050 ####[facility] [address] [place], [address] Urea nitrogen [Mass/Vol] 10 mg/dL Normal 4-[address] [facility] Comment on above: Performed By: #### L 100.0100, L501.2300, L501.9520, L500.4050 ####[facility] [address] [place], [address] Oncology Visit Reporton 11-17 Oncology Visit Report Normal [facility] Phosphoruson 12-14-2024 Phosphate [Mass/Vol] 3.7 mg/dL Normal 2.7-4.5 [facility] Comment on above: Performed By: #### L 100.0100, L501.2300, L501.9520, L500.4050 ####[facility] [address] [place], [address] Thyroid Stim Hormone (TSH)on 12-14-2024 TSH 0.383 uIU/mL Normal 0.300-4.[address] [facility] Comment on above: Performed By: #### L 100.0100, L501.2300, L501.9520, L500.4050 ####[facility] [address], [address] Absolute lymphocyte countOrd ered By: Sharif Christianson on 11-30-2024 Lymphocytes Auto (Unsp spec) [#/Vol] 1.07 10*3/uL 0.83-4.[address] [facility] Absolute neutrophil countOrd ered By: Sharif Christianson on 11-30-2024 Neutrophils (Bld) [#/Vol] 4.0 10*3/uL 2.0-7.[address] [facility] Anion gap in Serum or Plasma Ordered By: Sharif Christianson on 11-30-2024 Anion gap [Moles/Vol] 12 mmol/L 12-30 [facility] Automated blood erythrocyte countOrdered By: Sharif Christianson on 11-30-2024 RBC (Bld) [#/Vol] 3.63 10*6/uL Low 4.2-5.4 [facility] Comment on above: Order Comment: Order Date: 09/23/24Order Info: [id number] - CBCD Performed By: #### L 500.4100, L100.0100, L501.5200, L500.4050, L501.9985 ####[facility] [address] [place], [place], [id number] Automated blood hematocrit ( percentage)Ordered By: Sharif Christianson on 11-30-2024 Hematocrit (Bld) [Volume fraction] 30.7 % Low 37-[address] [facility] Comment on above: Order Comment: Order Date: 09/23/24Order Info: [id number]- - CBCD Performed By: #### L 500.4100, L100.0100, L501.5200, L500.4050, L501.9985 ####[facility] [address] [place], [place], [address] Automated lymphocyte count a s percentage of total leukocytesOrdered By: Sharif Christianson on 11-30-2024 Lymphocytes/100 WBC (Bld) 16.9 % Low 19-[address] [facility] Comment on above: Order Comment: Order Date: 09/23/24Order Info: 183- - CBCD Performed By: #### L 500.4100, L100.0100, L501.5200, L500.4050, L501.9985 ####[facility] [address] [place], [place], [phone] Lymphocytes/100 WBC Auto (Unsp spec) 16.9 % Low -[address] [facility] BUN/creatinine ratioOrdered By: Sharif Christianson on 11-30-2024 Urea nitrogen/Creatinine [Mass ratio] 19.2 mg/mg 10-[address] [facility] Basophil percentageOrdered B y: Sharif Christianson on 11-30-2024 Basophils/100 WBC (Bld) 0.3 % Normal 0-1 [facility] Comment on above: Order Comment: Order Date: 09/23/24Order Info: [id number] - CBCD Performed By: #### L 500.4100, L100.0100, L501.5200, L500.4050, L501.9985 ####[facility] [address] [place], [address] Bilirubin, totalOrdered By: Sharif Christianson on 11-30-2024 Bilirubin [Mass/Vol] 0.22 mg/dL Normal 0.00-1.30 [facility] Comment on above: Order Comment: Order Date: 09/23/24Order Info: [id number] - CMPOrder Info: [id number] - LIPIDOrder Info: [id number] - MG Performed By: #### L 500.4100, L100.0100, L501.5200, L500.4050, L501.9985 ####[facility] [address] [place], [address] CBC W/Diff, Automatedon 11-16 Absolute Lymph 1.07 X10 3/uL Normal 0.83-4.[address] [facility] Comment on above: Order Comment: Order Date: 09/23/24Order Info: [id number] - CBCD Performed By: #### L 500.4100, L100.0100, L501.5200, L500.4050, L501.9985 ####[facility] [address] [place], [address] Absolute Neut 4.0 X10 3/uL Normal 2.0-7.[address] [facility] Comment on above: Order Comment: Order Date: 09/23/24Order Info: [id number] - CBCD Performed By: #### L 500.4100, L100.0100, L501.5200, L500.4050, L501.9985 ####[facility] [address] [place], [address] IG% 0.200 Normal 0.0-0.[address] [facility] Comment on above: Order Comment: Order Date: 09/23/24Order Info: [id number] - CBCD Result Comment: IG% - Immature Granulocytes (promyelocytes, myelocytes andmetamyelocytes) > 1% indicates that a LEFT SHIFT is Present. Performed By: #### L 500.4100, L100.0100, L501.5200, L500.4050, L501.9985 ####[facility] [address] [place], [place], [id number] Nucleated RBC (Bld) [#/Vol] 0 10*3/uL Normal 0-[address] [facility] Comment on above: Order Comment: Order Date: 09/23/24Order Info: [id number] - CBCD Performed By: #### L 500.4100, L100.0100, L501.5200, L500.4050, L501.9985 ####[facility] [address] [place], [place], [id number] RDW SD 54.1 fl High 35.1-43.[address] [facility] Comment on above: Order Comment: Order Date: 09/23/24Order Info: [id number] - CBCD Performed By: #### L 500.4100, L100.0100, L501.5200, L500.4050, L501.9985 ####[facility] [address] [facility] [address] [place], [place], [id number] CT Chest AND Abd W/ Contrast on 11-30-2024 CT Chest AND Abd W/ Contrast Normal [facility] Calculated very low density lipoprotein (VLDL) cholesterol measurementOrdered By: Sharif Christianson on 11-30-2024 Calculated very low density lipoprotein (VLDL) cholesterol measurement 18 mg/dL [facility] VLDL Cholesterol 18 mg/dL [facility] Carbon dioxide, total [Moles /volume] in Central venous bloodOrdered By: Sharif Christianson on 11-30-2024 CO2 [Moles/Vol] 21.2 mmol/L Normal 21.0-32.[address] [facility] Comment on above: Order Comment: Order Date: 09/23/24Order Info: [id number] - CMPOrder Info: [id number] - LIPIDOrder Info: [id number] - MG Performed By: #### L 500.4100, L100.0100, L501.5200, L500.4050, L501.9985 ####[facility] [address] [place], [address] Chloride assayOrdered By: Yessenia Christianson on 11-30-2024 Chloride [Moles/Vol] 103 mmol/L Normal 98-108 [facility] Comment on above: Order Comment: Order Date: 09/23/24Order Info: [id number] - CMPOrder Info: [id number] - LIPIDOrder Info: [id number] - MG Performed By: #### L 500.4100, L100.0100, L501.5200, L500.4050, L501.9985 ####[facility] [address] [place], [address] Comprehensive Metabolic Prof ilon 11-30-2024 ALK PHOS 80 U/L Normal 35-[address] [facility] Comment on above: Order Comment: Order Date: 09/23/24Order Info: [id number] - CMPOrder Info: [id number] - LIPIDOrder Info: [id number] - MG Performed By: #### L 500.4100, L100.0100, L501.5200, L500.4050, L501.9985 ####[facility] [address] [place], [address] BUN/CRE 19.2 RATIO Normal 10-[address] [facility] Comment on above: Order Comment: Order Date: 09/23/24Order Info: [id number] - CMPOrder Info: [id number] - LIPIDOrder Info: [id number] - MG Performed By: #### L 500.4100, L100.0100, L501.5200, L500.4050, L501.9985 ####[facility] [address] [place], [address] GAP 12 Normal 5-[address] [facility] Comment on above: Order Comment: Order Date: 09/23/24Order Info: [id number] - CMPOrder Info: [id number] - LIPIDOrder Info: [id number] - MG Performed By: #### L 500.4100, L100.0100, L501.5200, L500.4050, L501.9985 ####[facility] [address] [place], [address] T PROT 6.0 g/dL Normal 5.9-8.[address] [facility] Comment on above: Order Comment: Order Date: 09/23/24Order Info: [id number] - CMPOrder Info: [id number] - LIPIDOrder Info: [id number] - MG Performed By: #### L 500.4100, L100.0100, L501.5200, L500.4050, L501.9985 ####[facility] [address] [place], [address] Comprehensive Metabolic Prof ilOrdered By: Sharif Christianson on 11-30-2024 AST [Catalytic activity/Vol] 18 U/L Normal <=[address] [facility] Comment on above: Order Comment: Order Date: 09/23/24Order Info: [id number] - CMPOrder Info: [id number] - LIPIDOrder Info: [id number] - MG Performed By: #### L 500.4100, L100.0100, L501.5200, L500.4050, L501.9985 ####[facility] [address] [place], [address] Eosinophil percentageOrdered By: Sharif Christianson on 11-30-2024 Eosinophils/100 WBC (Bld) 1.6 % Normal 0-[address] [facility] Comment on above: Order Comment: Order Date: 09/23/24Order Info: [id number] - CBCD Performed By: #### L 500.4100, L100.0100, L501.5200, L500.4050, L501.9985 ####[facility] [address] [place], [address] Erythrocyte distribution wid th (RBC) [Ratio]Ordered By: Sharif Christianson on 11-30-2024 Erythrocyte distribution width (RBC) [Entitic vol] 54.1 fL High 35.1-43.9 [facility] Erythrocyte distribution wid th ratioOrdered By: Sharif Christianson on 11-30-2024 Erythrocyte distribution width (RBC) [Ratio] 17.4 % High 11.6-14.[address] [facility] Comment on above: Order Comment: Order Date: 09/23/24Order Info: [id number] - CBCD Performed By: #### L 500.4100, L100.0100, L501.5200, L500.4050, L501.9985 ####[facility] [address] [facility] [place], [place], [id number] Erythrocyte distribution wid th standard deviationOrdered By: Sharif Christianson on 11-30-2024 Erythrocyte distribution width (RBC) [Ratio] 54.1 fl High 35.1-43.[address] [facility] GFR/1.73 sq M.predicted shakir g non-blacks MDRD (S/P/Bld) [Vol rate/Area]Ordered By: Sharif Christianson on 11-30-2024 Estimated GFR (MDRD) Non-Af Amer 96 >[address] [facility] Comment on above: mL/min/1.73m2 CKD-EP I Creatinine Equation (2020) Glomerular filtration rate ( GFR) estimation/1.73 sq m using serum, plasma, or whole bOrdered By: Sharif Christianson on 11-30-2024 GFR/1.73 sq M.predicted among non-blacks MDRD (S/P/Bld) [Vol rate/Area] 96 mL/min/{1.73_m2} Normal >60 [facility] Comment on above: mL/min/1.73m2 CKD-EP I Creatinine Equation (2020) Order Comment: Order Date: 09/23/24Order Info: [id number] - CMPOrder Info: [id number] - LIPIDOrder Info: [id number] - MG Result Comment: mL/m in/1.73m2 CKD-EPI Creatinine Equation (2020) Performed By: #### L 500.4100, L100.0100, L501.5200, L500.4050, L501.9985 ####[facility] [address] [place], [place], [address] Hemoglobin A1c percentageOrd ered By: Sharif Christianson on 11-30-2024 HbA1c (Bld) [Mass fraction] 6.9 % High <=5.[address] [facility] Comment on above: Normal < 5.7 % Predi abetic 5.7 - 6.4 % Diabetic >or= 6.5 % Please note range changes. Order Comment: Order Date: 09/23/24Order Info: [id number] - A1C Result Comment: Norm al < 5.7 % Prediabetic 5.7 - 6.4 % Diabetic >or= 6.5 % Please note range changes. Performed By: #### L 500.4100, L100.0100, L501.5200, L500.4050, L501.9985 ####[facility] [address] [place], [address] Hemoglobin measurementOrdere d By: Sharif Christianson on 11-30-2024 Hemoglobin (Bld) [Mass/Vol] 9.7 g/dL Low 12.0-15.[address] [facility] Comment on above: Order Comment: Order Date: 09/23/24Order Info: [id number] - CBCD Performed By: #### L 500.4100, L100.0100, L501.5200, L500.4050, L501.9985 ####[facility] [address] [place], [place], [id number] Immature granulocytes/100 WB C Auto (Bld)Ordered By: Sharif Christianson on 11-30-2024 Immature granulocytes/100 WBC (Bld) 0.200 % 0.0-0.[address] [facility] Comment on above: IG% - Immature Granu locytes (promyelocytes, myelocytes and metamyelocytes) > 1% indicates that a LEFT SHIFT is Present. LDL calc ser/plasOrdered By: Sharif Christianson on 11-30-2024 Cholesterol in LDL [Mass/Vol] 25 mg/dL Normal [facility] Comment on above: Eyyitaxoaz=063-093 m g/dL & Higher Wbra=669 mg/dL or greater Order Comment: Order Date: 09/23/24Order Info: [id number] - CMPOrder Info: [id number] - LIPIDOrder Info: [id number] - MG Result Comment: Bord rykfhl=579-903 mg/dL Higher Cmir=241 mg/dL or greater Performed By: #### L 500.4100, L100.0100, L501.5200, L500.4050, L501.9985 ####[facility] [address] [place], [address] LDL Cholesterol, Calculated 25 mg/dL [facility] [facility] Comment on above: Ynjjkbxwle=294-858 m g/dL & Higher Yvau=394 mg/dL or greater Lipid Profileon 11-30-2024 CHOL:HDL 2.[address] [facility] Comment on above: Order Comment: Order Date: 09/23/24Order Info: [id number] - CMPOrder Info: [id number] - LIPIDOrder Info: [id number] - MG Performed By: #### L 500.4100, L100.0100, L501.5200, L500.4050, L501.9985 ####[facility] [address] [place], [address] Cholesterol in VLDL [Mass/Vol] 18 mg/dL Normal 5-[address] [facility] Comment on above: Order Comment: Order Date: 09/23/24Order Info: [id number] - CMPOrder Info: [id number] - LIPIDOrder Info: [id number] - MG Performed By: #### L 500.4100, L100.0100, L501.5200, L500.4050, L501.9985 ####[facility] [address] [place], [address] Lymphocytes Auto (Unsp spec) [#/Vol]Ordered By: Sharif Christianson on 11-30-2024 Lymphocytes (Bld) [#/Vol] 1.07 10*3/uL 0.83-4.[address] [facility] MCV (mean corpuscular volume ) determinationOrdered By: Sharif Christianson on 11-30-2024 MCV (RBC) [Entitic vol] 84.6 fL Normal 81-99 [facility] Comment on above: Order Comment: Order Date: 09/23/24Order Info: [id number] - CBCD Performed By: #### L 500.4100, L100.0100, L501.5200, L500.4050, L501.9985 ####[facility] [address] [place], [address] Magnesium measurement (mass/ volume)Ordered By: Sharif Christianson on 11-30-2024 Magnesium [Mass/Vol] 1.5 mg/dL Normal 1.5-2.2 [facility] Comment on above: Order Comment: Order Date: 09/23/24Order Info: [id number] - CMPOrder Info: [id number] - LIPIDOrder Info: [id number] - MG Performed By: #### L 500.4100, L100.0100, L501.5200, L500.4050, L501.9985 ####[facility] [address] [place], [address] Magnesium (Unsp spec) [Mass/Vol] 1.5 mg/dL 1.5-2.[address] [facility] Mean corpuscular hemoglobin (MCH) determinationOrdered By: Sharif Christianson on 11-30-2024 MCH (RBC) [Entitic mass] 26.7 pg Low 27.0-32.[address] [facility] Comment on above: Order Comment: Order Date: 09/23/24Order Info: [id number] - CBCD Performed By: #### L 500.4100, L100.0100, L501.5200, L500.4050, L501.9985 ####[facility] [address] [place], [address] Mean corpuscular hemoglobin concentration (MCHC) determinationOrdered By: Sharif Christianson on 11-30-2024 MCHC (RBC) [Mass/Vol] 31.6 g/dL Low 32-36 [facility] Comment on above: Order Comment: Order Date: 09/23/24Order Info: [id number] CBCD Performed By: #### L 500.4100, L100.0100, L501.5200, L500.4050, L501.9985 ####[facility] [address] [place], [address] Mean platelet volume determi nationOrdered By: Sharif Christianson on 11-30-2024 Platelet mean volume (Bld) [Entitic vol] 8.7 fL Normal 6.2-12.[address] [facility] Comment on above: Order Comment: Order Date: 09/23/24Order Info: [id number] - CBCD Performed By: #### L 500.4100, L100.0100, L501.5200, L500.4050, L501.9985 ####[facility] [address] [place], [address] Monocyte percentageOrdered B y: Sharif Christianson on 11-30-2024 Monocytes/100 WBC (Bld) 17.2 % High 0-10 [facility] Comment on above: Order Comment: Order Date: 09/23/24Order Info: [id number] - CBCD Performed By: #### L 500.4100, L100.0100, L501.5200, L500.4050, L501.9985 ####[facility] [address] [place], [address] Neutrophil percentageOrdered By: Sharif Christianson on 11-30-2024 Neutrophils/100 WBC (Bld) 63.8 % Normal 47-[address] [facility] Comment on above: Order Comment: Order Date: 09/23/24Order Info: [id number] - CBCD Performed By: #### L 500.4100, L100.0100, L501.5200, L500.4050, L501.9985 ####[facility] [address] [place], [address] Nucleated red blood cell per centageOrdered By: Sharif Christianson on 11-30-2024 Nucleated RBC/100 WBC (Bld) [Ratio] 0 % 0-[address] [facility] Platelet countOrdered By: Yessenia Christianson on 11-30-2024 Platelets (Bld) [#/Vol] 273 10*3/uL Normal 150-[address] [facility] Comment on above: Order Comment: Order Date: 09/23/24Order Info: [id number] - CBCD Performed By: #### L 500.4100, L100.0100, L501.5200, L500.4050, L501.9985 ####[facility] [address] [place], [address] Potassium measurement (mass/ volume)Ordered By: Sharif Christianson on 11-30-2024 Potassium [Moles/Vol] 4.0 mmol/L Normal 3.3-5.1 [facility] Comment on above: Order Comment: Order Date: 09/23/24Order Info: [id number] - CMPOrder Info: [id number] - LIPIDOrder Info: [id number] - MG Performed By: #### L 500.4100, L100.0100, L501.5200, L500.4050, L501.9985 ####[facility] [address] [place], [address] Potassium (Unsp spec) [Mass/Vol] 4.0 mmol/L 3.3-5.[address] [facility] Screening total cholesterol/ high density lipoprotein (HDL) cholesterol ratioOrdered By: Sharif Christianson on 11-30-2024 Cholesterol.total/Cholest irasema in HDL [Mass ratio] 2.12 {ratio} [facility] Serum creatinine measurement (mass/volume)Ordered By: Sharif Christianson on 11-30-2024 Creatinine [Mass/Vol] 0.62 mg/dL Low 0.70-1.20 [facility] Comment on above: Order Comment: Order Date: 09/23/24Order Info: [id number] - CMPOrder Info: [id number] - LIPIDOrder Info: [id number] - MG Performed By: #### L 500.4100, L100.0100, L501.5200, L500.4050, L501.9985 ####[facility] [address] [place], [address] Serum globulin measurementOr dered By: Sharif Christianson on 11-30-2024 Globulin (S) [Mass/Vol] 2.6 g/dL Normal 2.2-4.2 [facility] Comment on above: Order Comment: Order Date: 09/23/24Order Info: [id number] - CMPOrder Info: [id number] - LIPIDOrder Info: [id number] - MG Performed By: #### L 500.4100, L100.0100, L501.5200, L500.4050, L501.9985 ####[facility] [address] [place], [place], [address] Serum glucose measurement (m ass/volume)Ordered By: Sharif Christianson on 11-30-2024 Glucose [Mass/Vol] 186 mg/dL High 70-99 [facility] Comment on above: Order Comment: Order Date: 09/23/24Order Info: [id number] - CMPOrder Info: [id number] - LIPIDOrder Info: [id number] - MG Performed By: #### L 500.4100, L100.0100, L501.5200, L500.4050, L501.9985 ####[facility] [address] [place], [address] Serum or plasma alanine amezquita otransferase (ALT) measurementOrdered By: Sharif Christianson on 11-30-2024 ALT [Catalytic activity/Vol] 15 U/L Normal <=[address] [facility] Comment on above: Order Comment: Order Date: 09/23/24Order Info: [id number] - CMPOrder Info: [id number] - LIPIDOrder Info: [id number] - MG Performed By: #### L 500.4100, L100.0100, L501.5200, L500.4050, L501.9985 ####[facility] [address] [place], [place], [address] Serum or plasma albumin joaquin urement (mass/volume)Ordered By: Sharif Christianson on 11-30-2024 Albumin [Mass/Vol] 3.4 g/dL Normal 3.4-4.8 [facility] Comment on above: Order Comment: Order Date: 09/23/24Order Info: [id number] - CMPOrder Info: [id number] - LIPIDOrder Info: [id number] - MG Performed By: #### L 500.4100, L100.0100, L501.5200, L500.4050, L501.9985 ####[facility] [address] [place], [address] Serum or plasma albumin/glob ulin mass ratioOrdered By: Sharif Christianson on 11-30-2024 Albumin/Globulin [Mass ratio] 1.3 {ratio} Normal 0.9-2.[address] [facility] Comment on above: Order Comment: Order Date: 09/23/24Order Info: [id number] - CMPOrder Info: [id number] - LIPIDOrder Info: - MG Performed By: #### L 500.4100, L100.0100, L501.5200, L500.4050, L501.9985 ####[facility] [address] [place], [place], [address] Serum or plasma alkaline gumaro sphatase measurementOrdered By: Sharif Christianson on 11-30-2024 ALP [Catalytic activity/Vol] 80 U/L 35-[address] [facility] Serum or plasma calcium joaquin urement (mass/volume)Ordered By: Sharif Christianson on 11-30-2024 Calcium [Mass/Vol] 9.3 mg/dL Normal 7.6-11.0 [facility] Comment on above: Order Comment: Order Date: 09/23/24Order Info: [id number] - CMPOrder Info: [id number] - LIPIDOrder Info: [id number] - MG Performed By: #### L 500.4100, L100.0100, L501.5200, L500.4050, L501.9985 ####[facility] [address] [place], [place], [address] Serum or plasma cholesterol in HDL measurement (mass/volume)Ordered By: Sharif Christianson on 11-30-2024 Cholesterol in HDL [Mass/Vol] 38 mg/dL Low [facility] Comment on above: National Cholesterol Education Program (NCEP) guidelines:<40 mg/dL: Low HDL-cholesterol (major risk factor for CHD)>= 60 mg/dL: High HDL-cholesterol (negative risk factor for CHD)HDL-cholesterol is affected by a number of factors, e.g. smoking, exercise, hormones, sex and age. Order Comment: Order Date: 09/23/24Order Info: [id number] - CMPOrder Info: [id number] - LIPIDOrder Info: [id number] - MG Result Comment: Ledy onal Cholesterol Education Program (NCEP) guidelines:<40 mg/dL: Low HDL-cholesterol (major risk factor for CHD)>= 60 mg/dL: High HDL-cholesterol (negative risk factor forCHD)HDL-cholesterol is affected by a number of factors, e.g.smoking, exercise, hormones, sex and age. Performed By: #### L 500.4100, L100.0100, L501.5200, L500.4050, L501.9985 ####[facility] [address] [place], [place], [address] Serum or plasma cholesterol measurement (mass/volume)Ordered By: Sharif Christianson on 11-30-2024 Cholesterol [Mass/Vol] 80 mg/dL Normal <=200 [facility] Comment on above: Cholesterol level, D esirable <200 mg/dLBorderline high cholesterol 200-239 mg/dLHigh cholesterol >=240 mg/dLRecommendations of the NCEP Adult Treatment Panel for the following risk-cutoff thresholds for the [place] population. Order Comment: Order Date: 09/23/24Order Info: [id number] - CMPOrder Info: [id number] - LIPIDOrder Info: [id number] - MG Result Comment: Chol esterol level, Desirable <200 mg/dLBorderline high cholesterol 200-239 mg/dLHigh cholesterol >=240 mg/dLRecommendations of the NCEP Adult Treatment Panel for thefollowing risk-cutoff thresholds for the [place] [facility]. Performed By: #### L 500.4100, L100.0100, L501.5200, L500.4050, L501.9985 ####[facility] [address] [place], [address] Serum or plasma urea nitroge n measurement (mass/volume)Ordered By: Sharif Christianson on 11-30-2024 Urea nitrogen [Mass/Vol] 12 mg/dL Normal 4-[address] [facility] Comment on above: Order Comment: Order Date: 09/23/24Order Info: [id number] - CMPOrder Info: [id number] - LIPIDOrder Info: - MG Performed By: #### L 500.4100, L100.0100, L501.5200, L500.4050, L501.9985 ####[facility] [address] [place], [address] Sodium levelOrdered By: Sharif Christianson on 11-30-2024 Sodium [Moles/Vol] 136 mmol/L Normal 133-145 [facility] Comment on above: Order Comment: Order Date: 09/23/24Order Info: [id number] - CMPOrder Info: [id number] - LIPIDOrder Info: [id number] - MG Performed By: #### L 500.4100, L100.0100, L501.5200, L500.4050, L501.9985 ####[facility] [address] [place], [address] Total proteinOrdered By: Link Christianson on 11-30-2024 Protein [Mass/Vol] 6.0 g/dL 5.9-8.4 [facility] Triglycerides measurementOrd ered By: Sharif Christianson on 11-30-2024 Triglyceride [Mass/Vol] 88 mg/dL Normal [facility] Comment on above: The drugs N-Acetylcy steine and Metamizole may falsely depress this assay. Normal range: <150 mg/dLBorderline High: 150-199 mg/dLHigh: 200-499 mg/dLVery High: >500 mg/dL Order Comment: Order Date: 09/23/24Order Info: [id number] - CMPOrder Info: [id number] - LIPIDOrder Info: [id number] - MG Result Comment: The drugs N-Acetylcysteine and Metamizole may falselydepress this assay.Normal range: <150 mg/dLBorderline High: 150-199 mg/dLHigh: 200-499 mg/dLVery High: >500 mg/dL Performed By: #### L 500.4100, L100.0100, L501.5200, L500.4050, L501.9985 ####[facility] [address] [facility] [place], [place], [address] White blood cell (WBC) count Ordered By: Sharif Christianson on 11-30-2024 WBC (Bld) [#/Vol] 6.3 10*3/uL Normal 4.4-11.0 [facility] Comment on above: Order Comment: Order Date: 09/23/24Order Info: [id number] - CBCD Performed By: #### L 500.4100, L100.0100, L501.5200, L500.4050, L501.9985 ####[facility] [address] [facility] [place], [place], [id number] Absolute neutrophil countOrd ered By: Shannan Waldrop on 11-23-2024 Neutrophils (Bld) [#/Vol] 4.2 10*3/uL 2.0-7.[address] [facility] Anion gap in Serum or Plasma Ordered By: Shannan Waldrop on 11-23-2024 Anion gap [Moles/Vol] 14 mmol/L 5-15 [facility] BUN/creatinine ratioOrdered By: Shannan Waldrop on 11-23-2024 Urea nitrogen/Creatinine [Mass ratio] 16.8 mg/mg 10-[address] [facility] Basophil percentageOrdered B y: Shannan Waldrop on 11-23-2024 Basophils/100 WBC (Bld) 0.4 % 0-1 [facility] Bilirubin, totalOrdered By: Shannan Waldrop on 11-23-2024 Bilirubin [Mass/Vol] 0.21 mg/dL 0.00-1.30 [facility] CBC W/Diff, Automatedon 04-0 Absolute Lymph 1.17 X10 3/uL Normal 0.83-4.[address] [facility] Comment on above: Performed By: #### L 100.0100, L500.4050, L501.9520, L501.2300 ####[facility] [address] [place], [address] Absolute Neut 4.2 X10 3/uL Normal 2.0-7.[address] [facility] Comment on above: Performed By: #### L 100.0100, L500.4050, L501.9520, L501.2300 ####[facility] [address] [place], [address] Basophils/100 WBC (Bld) 0.4 % Normal 0-1 [facility] Comment on above: Performed By: #### L 100.0100, L500.4050, L501.9520, L501.2300 ####[facility] [address] [place], [address] Eosinophils/100 WBC (Bld) 2.4 % Normal 0-[address] [facility] Comment on above: Performed By: #### L 100.0100, L500.4050, L501.9520, L501.2300 ####[facility] [address] [place], [address] Erythrocyte distribution width (RBC) [Ratio] 18.0 % High 11.6-14.[address] [facility] Comment on above: Performed By: #### L 100.0100, L500.4050, L501.9520, L501.2300 ####[facility] [address] [place], [address] Hematocrit (Bld) [Volume fraction] 32.5 % Low 37-[address] [facility] Comment on above: Performed By: #### L 100.0100, L500.4050, L501.9520, L501.2300 ####[facility] [address] [place], [address] Hemoglobin (Bld) [Mass/Vol] 10.0 g/dL Low 12.0-15.[address] [facility] Comment on above: Performed By: #### L 100.0100, L500.4050, L501.9520, L501.2300 ####[facility] [address] [place], [address] IG% 0.400 Normal 0.0-0.[address] [facility] Comment on above: Result Comment: IG% - Immature Granulocytes (promyelocytes, myelocytes andmetamyelocytes) > 1% indicates that a LEFT SHIFT is Present. Performed By: #### L 100.0100, L500.4050, L501.9520, L501.2300 ####[facility] [address] [place], [address] Lymphocytes/100 WBC (Bld) 17.5 % Low 19-[address] [facility] Comment on above: Performed By: #### L 100.0100, L500.4050, L501.9520, L501.2300 ####[facility] [address] [place], [address] MCH (RBC) [Entitic mass] 26.8 pg Low 27.0-32.[address] [facility] Comment on above: Performed By: #### L 100.0100, L500.4050, L501.9520, L501.2300 ####[facility] [address] [place], [address] MCHC (RBC) [Mass/Vol] 30.8 g/dL Low 32-36 [facility] Comment on above: Performed By: #### L 100.0100, L500.4050, L501.9520, L501.2300 ####[facility] [address] [place], [address] MCV (RBC) [Entitic vol] 87.1 fL Normal 81-99 [facility] Comment on above: Performed By: #### L 100.0100, L500.4050, L501.9520, L501.2300 ####[facility] [address] [place], [address] Monocytes/100 WBC (Bld) 17.2 % High 0-10 [facility] Comment on above: Performed By: #### L 100.0100, L500.4050, L501.9520, L501.2300 ####[facility] [address] [place], [address] Neutrophils/100 WBC (Bld) 62.1 % Normal 47-[address] [facility] Comment on above: Performed By: #### L 100.0100, L500.4050, L501.9520, L501.2300 ####[facility] [address] [place], [address] Nucleated RBC (Bld) [#/Vol] 0 10*3/uL Normal 0-[address] [facility] Comment on above: Performed By: #### L 100.0100, L500.4050, L501.9520, L501.2300 ####[facility] [address] [place], [address] Platelet mean volume (Bld) [Entitic vol] 8.7 fL Normal 6.2-12.[address] [facility] Comment on above: Performed By: #### L 100.0100, L500.4050, L501.9520, L501.2300 ####[facility] [address] [place], [address] Platelets (Bld) [#/Vol] 310 10*3/uL Normal 150-[address] [facility] Comment on above: Performed By: #### L 100.0100, L500.4050, L501.9520, L501.2300 ####[facility] [address] [place], [address] RBC (Bld) [#/Vol] 3.73 10*6/uL Low 4.2-5.4 [facility] Comment on above: Performed By: #### L 100.0100, L500.4050, L501.9520, L501.2300 ####[facility] [address] [place], [address] RDW SD 57.4 fl High 35.1-43.[address] [facility] Comment on above: Performed By: #### L 100.0100, L500.4050, L501.9520, L501.2300 ####[facility] [address] [place], [address] WBC (Bld) [#/Vol] 6.7 10*3/uL Normal 4.4-11.0 [facility] Comment on above: Performed By: #### L 100.0100, L500.4050, L501.9520, L501.2300 ####[facility] [address] [place], [address] Carbon dioxide, total [Moles /volume] in Central venous bloodOrdered By: Shannan Waldrop on 11-23-2024 CO2 [Moles/Vol] 20.7 mmol/L Low 21.0-32.[address] [facility] Chloride assayOrdered By: Adriana Waldrop on 11-23-2024 Chloride [Moles/Vol] 106 mmol/L 98-108 [facility] Comprehensive Metabolic Prof ilon 11-23-2024 Albumin [Mass/Vol] 3.6 g/dL Normal 3.4-4.8 [facility] Comment on above: Performed By: #### L 100.0100, L500.4050, L501.9520, L501.2300 ####[facility] [address] [place], [address] Albumin/Globulin [Mass ratio] 1.3 {ratio} Normal 0.9-2.[address] [facility] Comment on above: Performed By: #### L 100.0100, L500.4050, L501.9520, L501.2300 ####[facility] [address] [place], [address] ALK PHOS 78 U/L Normal 35-[address] [facility] Comment on above: Performed By: #### L 100.0100, L500.4050, L501.9520, L501.2300 ####[facility] [address] [place], [address] ALT [Catalytic activity/Vol] 16 U/L Normal <=[address] [facility] Comment on above: Performed By: #### L 100.0100, L500.4050, L501.9520, L501.2300 ####[facility] [address] [place], [address] AST [Catalytic activity/Vol] 18 U/L Normal <=[address] [facility] Comment on above: Performed By: #### L 100.0100, L500.4050, L501.9520, L501.2300 ####[facility] [address] [place], [address] Bilirubin [Mass/Vol] 0.21 mg/dL Normal 0.00-1.30 [facility] Comment on above: Performed By: #### L 100.0100, L500.4050, L501.9520, L501.2300 ####[facility] [address] [place], [address] BUN/CRE 16.8 RATIO Normal 10-[address] [facility] Comment on above: Performed By: #### L 100.0100, L500.4050, L501.9520, L501.2300 ####[facility] [address] [place], [address] Calcium [Mass/Vol] 9.0 mg/dL Normal 7.6-11.0 [facility] Comment on above: Performed By: #### L 100.0100, L500.4050, L501.9520, L501.2300 ####[facility] [address] [place], [address] Chloride [Moles/Vol] 106 mmol/L Normal 98-108 [facility] Comment on above: Performed By: #### L 100.0100, L500.4050, L501.9520, L501.2300 ####[facility] [address] [place], [address] CO2 [Moles/Vol] 20.7 mmol/L Low 21.0-32.[address] [facility] Comment on above: Performed By: #### L 100.0100, L500.4050, L501.9520, L501.2300 ####[facility] [address] [place], [address] Creatinine [Mass/Vol] 0.57 mg/dL Low 0.70-1.20 [facility] Comment on above: Performed By: #### L 100.0100, L500.4050, L501.9520, L501.2300 ####[facility] [address] [place], [address] ECRCL 64.37 ml/min Normal 50-[address] [facility] Comment on above: Performed By: #### L 100.0100, L500.4050, L501.9520, L501.2300 ####[facility] [address] [place], [address] GAP 14 Normal 5-[address] [facility] Comment on above: Performed By: #### L 100.0100, L500.4050, L501.9520, L501.2300 ####[facility] [address] [place], [address] GFR/1.73 sq M.predicted among non-blacks MDRD (S/P/Bld) [Vol rate/Area] 98 mL/min/{1.73_m2} Normal >60 [facility] Comment on above: Result Comment: mL/m in/1.73m2 CKD-EPI Creatinine Equation (2020) Performed By: #### L 100.0100, L500.4050, L501.9520, L501.2300 ####[facility] [facility] [address] [place], [address] Globulin (S) [Mass/Vol] 2.7 g/dL Normal 2.2-4.2 [facility] Comment on above: Performed By: #### L 100.0100, L500.4050, L501.9520, L501.2300 ####[facility] [address] [place], [address] Glucose [Mass/Vol] 198 mg/dL High 70-99 [facility] Comment on above: Performed By: #### L 100.0100, L500.4050, L501.9520, L501.2300 ####[facility] [address] [place], [address] Potassium [Moles/Vol] 3.9 mmol/L Normal 3.3-5.1 [facility] Comment on above: Performed By: #### L 100.0100, L500.4050, L501.9520, L501.2300 ####[facility] [address] [place], [address] Sodium [Moles/Vol] 141 mmol/L Normal 133-145 [facility] Comment on above: Performed By: #### L 100.0100, L500.4050, L501.9520, L501.2300 ####[facility] [address] [place], [address] T PROT 6.3 g/dL Normal 5.9-8.[address] [facility] Comment on above: Performed By: #### L 100.0100, L500.4050, L501.9520, L501.2300 ####[facility] [address] [place], [address] Urea nitrogen [Mass/Vol] 10 mg/dL Normal 4-[address] [facility] Comment on above: Performed By: #### L 100.0100, L500.4050, L501.9520, L501.2300 ####[facility] [address] [place], [address] Eosinophil percentageOrdered By: Shannan Waldrop on 11-23-2024 Eosinophils/100 WBC (Bld) 2.4 % 0-[address] [facility] Erythrocyte distribution wid th (RBC) [Ratio]Ordered By: Shannan Waldrop on 11-23-2024 Erythrocyte distribution width (RBC) [Entitic vol] 57.4 fL High 35.1-43.9 [facility] Erythrocyte distribution wid th ratioOrdered By: [facility] on 11-23-2024 Erythrocyte distribution width (RBC) [Ratio] 18.0 % High 11.6-14.[address] [facility] Estimation of creatinine vinh aranceOrdered By: Shannan Waldrop on 11-23-2024 Estimated Creatinine Clearance Calc 64.37 ml/min 50-[address] [facility] GFR/1.73 sq M.predicted shakir g non-blacks MDRD (S/P/Bld) [Vol rate/Area]Ordered By: Shannan Waldrop on 11-23-2024 Estimated GFR (MDRD) Non-Af Amer 98 >[address] [facility] Comment on above: mL/min/1.73m2 CKD-EP I Creatinine Equation (2020) Hematocrit Auto (Bld) [Volum e fraction]Ordered By: Shannan Waldrop on 11-23-2024 Hematocrit (Bld) [Volume fraction] 32.5 % Low 37-[address] [facility] Hemoglobin measurementOrdere d By: Shannan Waldrop on 11-23-2024 Hemoglobin (Bld) [Mass/Vol] 10.0 g/dL Low 12.0-15.[address] [facility] Immature granulocytes/100 WB C Auto (Bld)Ordered By: Shannan Waldrop on 11-23-2024 Immature granulocytes/100 WBC (Bld) 0.400 % 0.0-0.[address] [facility] Comment on above: IG% - Immature Granu locytes (promyelocytes, myelocytes and metamyelocytes) > 1% indicates that a LEFT SHIFT is Present. Laboratory - Chemistry and C hemistry - challengeOrdered By: Shannan Waldrop on 11-23-2024 AST [Catalytic activity/Vol] 18 U/L <[address] [facility] Lymphocytes Auto (Unsp spec) [#/Vol]Ordered By: Shannan Waldrop on 11-23-2024 Lymphocytes (Bld) [#/Vol] 1.17 10*3/uL 0.83-4.[address] [facility] Lymphocytes/100 WBC Auto (Un sp spec)Ordered By: Shannan Waldrop on 11-23-2024 Lymphocytes/100 WBC (Bld) 17.5 % Low 19-[address] [facility] MCV (mean corpuscular volume ) determinationOrdered By: Shannan Waldrop on 11-23-2024 MCV (RBC) [Entitic vol] 87.1 fL 81-99 [facility] Mean corpuscular hemoglobin (MCH) determinationOrdered By: Shannan Waldrop on 11-23-2024 MCH (RBC) [Entitic mass] 26.8 pg Low 27.0-32.[address] [facility] Mean corpuscular hemoglobin concentration (MCHC) determinationOrdered By: Shannan Waldrop on 11-23-2024 MCHC (RBC) [Mass/Vol] 30.8 g/dL Low 32-36 [facility] Mean platelet volume determi nationOrdered By: Shannan Waldrop on 11-23-2024 Platelet mean volume (Bld) [Entitic vol] 8.7 fL 6.2-12.[address] [facility] Monocyte percentageOrdered B y: Shannan Waldrop on 11-23-2024 Monocytes/100 WBC (Bld) 17.2 % High 0-10 [facility] Neutrophil percentageOrdered By: Shannan Waldrop on 11-23-2024 Neutrophils/100 WBC (Bld) 62.1 % 47-[address] [facility] Nucleated red blood cell per centageOrdered By: Shannan Waldrop on 11-23-2024 Nucleated RBC/100 WBC (Bld) [Ratio] 0 % 0-[address] [facility] Oncology Visit Reporton 040 Oncology Visit Report Normal [facility] Phosphoruson 11-23-2024 Phosphate [Mass/Vol] 3.3 mg/dL Normal 2.7-4.5 [facility] Comment on above: Performed By: #### L 100.0100, L500.4050, L501.9520, L501.2300 ####[facility] [address] [place], [address] Platelet countOrdered By: Adriana Waldrop on 11-23-2024 Platelets (Bld) [#/Vol] 310 10*3/uL 150-[address] [facility] Potassium (Unsp spec) [Mass/ Vol]Ordered By: Shannan Waldrop on 11-23-2024 Potassium [Moles/Vol] 3.9 mmol/L 3.3-5.1 [facility] RBC Auto (Bld) [#/Vol]Ordere d By: Shannan Waldrop on 11-23-2024 RBC (Bld) [#/Vol] 3.73 10*6/uL Low 4.2-5.4 [facility] Serum creatinine measurement (mass/volume)Ordered By: Shannan Waldrop on 11-23-2024 Creatinine [Mass/Vol] 0.57 mg/dL Low 0.70-1.20 [facility] Serum globulin measurementOr dered By: Shannan Waldrop on 11-23-2024 Globulin (S) [Mass/Vol] 2.7 g/dL 2.2-4.2 [facility] Serum glucose measurement (m ass/volume)Ordered By: Shannan Waldrop on 11-23-2024 Glucose [Mass/Vol] 198 mg/dL High 70-99 [facility] Serum or plasma alanine amezquita otransferase (ALT) measurementOrdered By: Shannan Waldrop on 11-23-2024 ALT [Catalytic activity/Vol] 16 U/L <[address] [facility] Serum or plasma albumin joaquin urement (mass/volume)Ordered By: Shannan Waldrop on 11-23-2024 Albumin [Mass/Vol] 3.6 g/dL 3.4-4.8 [facility] Serum or plasma albumin/glob ulin mass ratioOrdered By: Shannan Waldrop on 11-23-2024 Albumin/Globulin [Mass ratio] 1.3 {ratio} 0.9-2.[address] [facility] Serum or plasma alkaline gumaro sphatase measurementOrdered By: Shannan Waldrop on 11-23-2024 ALP [Catalytic activity/Vol] 78 U/L 35-[address] [facility] Serum or plasma calcium joaquin urement (mass/volume)Ordered By: Shannan Waldrop on 11-23-2024 Calcium [Mass/Vol] 9.0 mg/dL 7.6-11.0 [facility] Serum or plasma urea nitroge n measurement (mass/volume)Ordered By: Shannan Waldrop on 11-23-2024 Urea nitrogen [Mass/Vol] 10 mg/dL 4-[address] [facility] Serum phosphorus measurement Ordered By: Shannan Waldrop on 11-23-2024 Phosphorus Level 3.3 mg/dL 2.7-4.[address] [facility] Sodium levelOrdered By: Spring Waldrop on 11-23-2024 Sodium [Moles/Vol] 141 mmol/L 133-145 [facility] TSH DL <= 0.005 mIU/L QnOrde red By: Shannan Waldrop on 11-23-2024 Thyroid Stimulating Hormone (TSH) 0.014 uIU/mL Low 0.300-4.[address] [facility] Thyroid Stim Hormone (TSH)on 11-23-2024 TSH 0.014 uIU/mL Low 0.300-4.[address] [facility] Comment on above: Performed By: #### L 100.0100, L500.4050, L501.9520, L501.2300 ####[facility] [address] [place], [address] Total proteinOrdered By: Howard Waldrop on 11-23-2024 Protein [Mass/Vol] 6.3 g/dL 5.9-8.4 [facility] White blood cell (WBC) count Ordered By: Shannan Benjie on 11-23-2024 WBC (Bld) [#/Vol] 6.7 10*3/uL 4.4-11.0 [facility] MR/BMS.BVSon 11-10-2024 MR/BMS.BVS Normal [facility] CBC W/Diff, Automatedon 10-16 Absolute Neut Normal 2.0-7.[address] [facility] Comment on above: Result Comment: NOT COLLECTED Performed By: #### L 100.0100, L501.2300, L500.4050, L501.9520 ####[facility] [address] [place], [address] HCT Normal 37-[address] [facility] Comment on above: Result Comment: NOT COLLECTED Performed By: #### L 100.0100, L501.2300, L500.4050, L501.9520 ####[facility] [address] [place], [address] HGB Normal 12.0-15.[address] [facility] Comment on above: Result Comment: NOT COLLECTED Performed By: #### L 100.0100, L501.2300, L500.4050, L501.9520 ####[facility] [address] [place], [address] MCH Normal 27.0-32.[address] [facility] Comment on above: Result Comment: NOT COLLECTED Performed By: #### L 100.0100, L501.2300, L500.4050, L501.9520 ####[facility] [address] [place], [address] MCHC Normal 32-[address] [facility] Comment on above: Result Comment: NOT COLLECTED Performed By: #### L 100.0100, L501.2300, L500.4050, L501.9520 ####[facility] [address] [place], [address] MCV Normal 81-[address] [facility] Comment on above: Result Comment: NOT COLLECTED Performed By: #### L 100.0100, L501.2300, L500.4050, L501.9520 ####[facility] [address] [place], [address] NEUT% Normal 47-[address] [facility] Comment on above: Result Comment: NOT COLLECTED Performed By: #### L 100.0100, L501.2300, L500.4050, L501.9520 ####[facility] [address] [place], [address] PLT Normal 150-[address] [facility] Comment on above: Result Comment: NOT COLLECTED Performed By: #### L 100.0100, L501.2300, L500.4050, L501.9520 ####[facility] [address] [place], [address] RBC Normal 4.2-5.[address] [facility] Comment on above: Result Comment: NOT COLLECTED Performed By: #### L 100.0100, L501.2300, L500.4050, L501.9520 ####[facility] [address] [place], [address] RDW CV Normal 11.6-14.[address] [facility] Comment on above: Result Comment: NOT COLLECTED Performed By: #### L 100.0100, L501.2300, L500.4050, L501.9520 ####[facility] [address] [place], [address] RDW SD Normal 35.1-43.[address] [facility] Comment on above: Result Comment: NOT COLLECTED Performed By: #### L 100.0100, L501.2300, L500.4050, L501.9520 ####[facility] [address] [place], [address] WBC Normal 4.4-11.[address] [facility] Comment on above: Result Comment: NOT COLLECTED Performed By: #### L 100.0100, L501.2300, L500.4050, L501.9520 ####[facility] [address] [place], [address] Comprehensive Metabolic Prof ilon 11-02-2024 Albumin [Mass/Vol] 3.7 g/dL Normal 3.4-4.8 [facility] Comment on above: Performed By: #### L 100.0100, L501.2300, L500.4050, L501.9520 ####[facility] [address] [place], [address] Albumin/Globulin [Mass ratio] 1.2 {ratio} Normal 0.9-2.[address] [facility] Comment on above: Performed By: #### L 100.0100, L501.2300, L500.4050, L501.9520 ####[facility] [address] [place], [address] ALK PHOS 87 U/L Normal 35-[address] [facility] Comment on above: Performed By: #### L 100.0100, L501.2300, L500.4050, L501.9520 ####[facility] [address] [place], [address] ALT [Catalytic activity/Vol] 14 U/L Normal <=[address] [facility] Comment on above: Performed By: #### L 100.0100, L501.2300, L500.4050, L501.9520 ####[facility] [address] [place], [address] AST [Catalytic activity/Vol] 19 U/L Normal <=[address] [facility] Comment on above: Performed By: #### L 100.0100, L501.2300, L500.4050, L501.9520 ####[facility] [address] [place], [address] Bilirubin [Mass/Vol] 0.27 mg/dL Normal 0.00-1.30 [facility] Comment on above: Performed By: #### L 100.0100, L501.2300, L500.4050, L501.9520 ####[facility] [address] [place], [address] BUN/CRE 21.1 RATIO High 10-[address] [facility] Comment on above: Performed By: #### L 100.0100, L501.2300, L500.4050, L501.9520 ####[facility] [address] [place], [address] Calcium [Mass/Vol] 9.3 mg/dL Normal 7.6-11.0 [facility] Comment on above: Performed By: #### L 100.0100, L501.2300, L500.4050, L501.9520 ####[facility] [address] [place], [address] Chloride [Moles/Vol] 104 mmol/L Normal 98-108 [facility] Comment on above: Performed By: #### L 100.0100, L501.2300, L500.4050, L501.9520 ####[facility] [address] [place], [address] CO2 [Moles/Vol] 20.6 mmol/L Low 21.0-32.[address] [facility] Comment on above: Performed By: #### L 100.0100, L501.2300, L500.4050, L501.9520 ####[facility] [address] [place], [address] Creatinine [Mass/Vol] 0.57 mg/dL Low 0.70-1.20 [facility] Comment on above: Performed By: #### L 100.0100, L501.2300, L500.4050, L501.9520 ####[facility] [address] [place], [address] ECRCL 64.55 ml/min Normal 50-[address] [facility] Comment on above: Performed By: #### L 100.0100, L501.2300, L500.4050, L501.9520 ####[facility] [address] [place], [address] GAP 13 Normal 5-[address] [facility] Comment on above: Performed By: #### L 100.0100, L501.2300, L500.4050, L501.9520 ####[facility] [address] [place], [address] GFR/1.73 sq M.predicted among non-blacks MDRD (S/P/Bld) [Vol rate/Area] 98 mL/min/{1.73_m2} Normal >60 [facility] Comment on above: Result Comment: mL/m in/1.73m2 CKD-EPI Creatinine Equation (2020) Performed By: #### L 100.0100, L501.2300, L500.4050, L501.9520 ####[facility] [address] [place], [address] Globulin (S) [Mass/Vol] 3.0 g/dL Normal 2.2-4.2 [facility] Comment on above: Performed By: #### L 100.0100, L501.2300, L500.4050, L501.9520 ####[facility] [address] [place], [address] Glucose [Mass/Vol] 167 mg/dL High 70-99 [facility] Comment on above: Performed By: #### L 100.0100, L501.2300, L500.4050, L501.9520 ####[facility] [address] [place], [address] Potassium [Moles/Vol] 4.1 mmol/L Normal 3.3-5.1 [facility] Comment on above: Performed By: #### L 100.0100, L501.2300, L500.4050, L501.9520 ####[facility] [address] [place], [address] Sodium [Moles/Vol] 137 mmol/L Normal 133-145 [facility] Comment on above: Performed By: #### L 100.0100, L501.2300, L500.4050, L501.9520 ####[facility] [address] [place], [address] T PROT 6.6 g/dL Normal 5.9-8.[address] [facility] Comment on above: Performed By: #### L 100.0100, L501.2300, L500.4050, L501.9520 ####[facility] [address] [place], [address] Urea nitrogen [Mass/Vol] 12 mg/dL Normal 4-[address] [facility] Comment on above: Performed By: #### L 100.0100, L501.2300, L500.4050, L501.9520 ####[facility] [address] [place], [address] L509.6001on 11-02-2024 CORTISOL 15.40 ug/dL Normal 6.02-18.[address] [facility] Comment on above: Performed By: #### L 506.0400, L509.6001, L501.5200 ####[facility] [address] [place], [address] Magnesiumon 11-02-2024 Magnesium [Mass/Vol] 1.6 mg/dL Normal 1.5-2.2 [facility] Comment on above: Performed By: #### L 506.0400, L509.6001, L501.5200 ####[facility] [address] [place], [address] Magnesium (Unsp spec) [Mass/ Vol]Ordered By: Shannan Waldrop on 11-02-2024 Magnesium [Mass/Vol] 1.6 mg/dL 1.5-2.2 [facility] Magnesium measurement (mass/ volume)Ordered By: Shannan Waldrop on 11-02-2024 Magnesium (Unsp spec) [Mass/Vol] 1.6 mg/dL 1.5-2.[address] [facility] No Panel InformationOrdered By: Shannan Waldrop on 11-02-2024 Cortisol AM Sample 15.40 ug/dL 6.02-18.40 [facility] Oncology Visit Reporton 10-16 Oncology Visit Report Normal [facility] Phosphoruson 11-02-2024 Phosphate [Mass/Vol] 2.9 mg/dL Normal 2.7-4.5 [facility] Comment on above: Performed By: #### L 100.0100, L501.2300, L500.4050, L501.9520 ####[facility] [address] [place], [address] T4 Free Directon 11-02-2024 T4 FREE DIRECT 2.00 ng/dL High 0.76-1.[address] [facility] Comment on above: Performed By: #### L 506.0400, L509.6001, L501.5200 ####[facility] [address] [place], [address] T4 freeOrdered By: Shannan julio on 11-02-2024 Free T4 [Mass/Vol] 2.00 ng/dL High 0.76-1.46 [facility] Thyroid Stim Hormone (TSH)on 11-02-2024 TSH 0.045 uIU/mL Low 0.300-4.[address] [facility] Comment on above: Performed By: #### L 100.0100, L501.2300, L500.4050, L501.9520 ####[facility] [address] [place], [address] L503.0106on 10-13-2024 Cobalamin (Vitamin B12) [Mass/Vol] 409 pg/mL Normal 180-[address] [facility] Comment on above: Order Comment: HÉCTOR Lovell ADD ON TO BLOOD IN LAB. THANK YOU!! Performed By: #### L 503.0106 ####[facility] [address] [place], [address] Phosphoruson 10-13-2024 Phosphate [Mass/Vol] 3.1 mg/dL Normal 2.7-4.5 [facility] Comment on above: Performed By: #### L 501.9520, L501.2300, L100.0100 ####[facility] [address] [place], [address] Thyroid Stim Hormone (TSH)on 10-13-2024 TSH 0.196 uIU/mL Low 0.300-4.[address] [facility] Comment on above: Performed By: #### L 501.9520, L501.2300, L100.0100 ####[facility] [address] [place], [address] CBC W/Diff, Automatedon 09-19 Absolute Lymph 0.92 X10 3/uL Normal 0.83-4.[address] [facility] Comment on above: Performed By: #### L 501.9520, L501.2300, L100.0100 ####[facility] [address] [place], [address] Absolute Neut 4.8 X10 3/uL Normal 2.0-7.[address] [facility] Comment on above: Performed By: #### L 501.9520, L501.2300, L100.0100 ####[facility] [address] [place], [address] Basophils/100 WBC (Bld) 0.6 % Normal 0-1 [facility] Comment on above: Performed By: #### L 501.9520, L501.2300, L100.0100 ####[facility] [address] [place], [address] Eosinophils/100 WBC (Bld) 3.3 % Normal 0-[address] [facility] Comment on above: Performed By: #### L 501.9520, L501.2300, L100.0100 ####[facility] [address] [place], [address] Erythrocyte distribution width (RBC) [Ratio] 19.1 % High 11.6-14.[address] [facility] Comment on above: Performed By: #### L 501.9520, L501.2300, L100.0100 ####[facility] [address] [place], [address] Hematocrit (Bld) [Volume fraction] 33.3 % Low 37-[address] [facility] Comment on above: Performed By: #### L 501.9520, L501.2300, L100.0100 ####[facility] [address] [place], [address] Hemoglobin (Bld) [Mass/Vol] 10.3 g/dL Low 12.0-15.[address] [facility] Comment on above: Performed By: #### L 501.9520, L501.2300, L100.0100 ####[facility] [address] [place], [address] IG% 0.300 Normal 0.0-0.[address] [facility] Comment on above: Result Comment: IG% - Immature Granulocytes (promyelocytes, myelocytes andmetamyelocytes) > 1% indicates that a LEFT SHIFT is Present. Performed By: #### L 501.9520, L501.2300, L100.0100 ####[facility] [address] [place], [address] Lymphocytes/100 WBC (Bld) 13.4 % Low 19-[address] [facility] Comment on above: Performed By: #### L 501.9520, L501.2300, L100.0100 ####[facility] [address] [place], [address] MCH (RBC) [Entitic mass] 27.6 pg Normal 27.0-32.[address] [facility] Comment on above: Performed By: #### L 501.9520, L501.2300, L100.0100 ####[facility] [address] [place], [address] MCHC (RBC) [Mass/Vol] 30.9 g/dL Low 32-36 [facility] Comment on above: Performed By: #### L 501.9520, L501.2300, L100.0100 ####[facility] [address] [place], [address] MCV (RBC) [Entitic vol] 89.3 fL Normal 81-99 [facility] Comment on above: Performed By: #### L 501.9520, L501.2300, L100.0100 ####[facility] [address] [place], [address] Monocytes/100 WBC (Bld) 12.2 % High 0-10 [facility] Comment on above: Performed By: #### L 501.9520, L501.2300, L100.0100 ####[facility] [address] [place], [address] Neutrophils/100 WBC (Bld) 70.2 % High 47-[address] [facility] Comment on above: Performed By: #### L 501.9520, L501.2300, L100.0100 ####[facility] [facility] [address] [place], [address] Nucleated RBC (Bld) [#/Vol] 0 10*3/uL Normal 0-[address] [facility] Comment on above: Performed By: #### L 501.9520, L501.2300, L100.0100 ####[facility] [address] [place], [address] Platelet mean volume (Bld) [Entitic vol] 9.1 fL Normal 6.2-12.[address] [facility] Comment on above: Performed By: #### L 501.9520, L501.2300, L100.0100 ####[facility] [address] [place], [address] Platelets (Bld) [#/Vol] 250 10*3/uL Normal 150-[address] [facility] Comment on above: Performed By: #### L 501.9520, L501.2300, L100.0100 ####[facility] [address] [place], [address] RBC (Bld) [#/Vol] 3.73 10*6/uL Low 4.2-5.4 [facility] Comment on above: Performed By: #### L 501.9520, L501.2300, L100.0100 ####[facility] [address] [place], [address] RDW SD 63.1 fl High 35.1-43.[address] [facility] Comment on above: Performed By: #### L 501.9520, L501.2300, L100.0100 ####[facility] [address] [place], [address] WBC (Bld) [#/Vol] 6.9 10*3/uL Normal 4.4-11.0 [facility] Comment on above: Performed By: #### L 501.9520, L501.2300, L100.0100 ####[facility] [address] [place], [address] Comprehensive Metabolic Prof ilon 10-12-2024 Albumin [Mass/Vol] 3.7 g/dL Normal 3.4-4.8 [facility] Comment on above: Performed By: #### L 500.4050 ####[facility] [address] [place], [address] Albumin/Globulin [Mass ratio] 1.3 {ratio} Normal 0.9-2.[address] [facility] Comment on above: Performed By: #### L 500.4050 ####[facility] [address] [place], [address] ALK PHOS 78 U/L Normal 35-[address] [facility] Comment on above: Performed By: #### L 500.4050 ####[facility] [address] [place], [address] ALT [Catalytic activity/Vol] 10 U/L Normal <=[address] [facility] Comment on above: Performed By: #### L 500.4050 ####[facility] [address] [place], [address] Anion gap [Moles/Vol] 15 mmol/L Normal 5-15 [facility] Comment on above: Performed By: #### L 500.4050 ####[facility] [address] [place], [address] AST [Catalytic activity/Vol] 17 U/L Normal <=[address] [facility] Comment on above: Performed By: #### L 500.4050 ####[facility] [address] [place], [address] Bilirubin [Mass/Vol] 0.25 mg/dL Normal 0.00-1.30 [facility] Comment on above: Performed By: #### L 500.4050 ####[facility] [address] [place], [address] BUN/CRE 27.0 RATIO High 10-[address] [facility] Comment on above: Performed By: #### L 500.4050 ####[facility] [address] [place], [address] Calcium [Mass/Vol] 9.0 mg/dL Normal 7.6-11.0 [facility] Comment on above: Performed By: #### L 500.4050 ####[facility] [address] [place], [address] Chloride [Moles/Vol] 103 mmol/L Normal 96-108 [facility] Comment on above: Performed By: #### L 500.4050 ####[facility] [address] [place], [address] CO2 [Moles/Vol] 19.7 mmol/L Low 22.0-29.[address] [facility] Comment on above: Performed By: #### L 500.4050 ####[facility] [address] [place], [address] Creatinine [Mass/Vol] 0.6 mg/dL Normal 0.6-1.0 [facility] Comment on above: Performed By: #### L 500.4050 ####[facility] [address] [place], [address] ECRCL 65.27 ml/min Normal [facility] Comment on above: Performed By: #### L 500.4050 ####[facility] [address] [place], [address] GFR/1.73 sq M.predicted among non-blacks MDRD (S/P/Bld) [Vol rate/Area] 98 mL/min/{1.73_m2} Normal >60 [facility] Comment on above: Result Comment: mL/m in/1.73m2 CKD-EPI Creatinine Equation (2020) Performed By: #### L 500.4050 ####[facility] [address] [place], [address] Globulin (S) [Mass/Vol] 2.9 g/dL Normal 2.2-4.2 [facility] Comment on above: Performed By: #### L 500.4050 ####[facility] [address] [place], [address] Glucose [Mass/Vol] 278 mg/dL High 70-99 [facility] Comment on above: Performed By: #### L 500.4050 ####[facility] [address] [place], [address] Potassium [Moles/Vol] 4.0 mmol/L Normal 3.3-5.1 [facility] Comment on above: Performed By: #### L 500.4050 ####[facility] [address] [place], [address] Sodium [Moles/Vol] 137 mmol/L Normal 133-145 [facility] Comment on above: Performed By: #### L 500.4050 ####[facility] [address] [place], [address] T PROT 6.6 g/dL Normal 5.9-8.[address] [facility] Comment on above: Performed By: #### L 500.4050 ####[facility] [address] [place], [address] Urea nitrogen [Mass/Vol] 16 mg/dL Normal 4-[address] [facility] Comment on above: Performed By: #### L 500.4050 ####[facility] [address] [place], [address] Laboratory - Chemistry and C hemistry - challengeOrdered By: Shannan Waldrop on 10-12-2024 Cobalamin (Vitamin B12) [Mass/Vol] 409 pg/mL 180-[address] [facility] Oncology Visit Reporton 09-19 Oncology Visit Report Normal [facility] Blood manual differential co mment interpretation (narrative result)Ordered By: Shannan Waldrop on 09-21-2024 Manual differential comment Kuldip (Bld) [Interp] SCANNED [facility] CBC W/Diff, Automatedon Anisocytosis Ql (Bld) 2+ Normal [facility] Comment on above: Performed By: #### L 501.9520, L501.5200, L501.2300, L500.4050, L100.0100, L506.0400 ####[facility] [address] [place], [address] OVALOCYTE 2+ Normal [facility] Comment on above: Performed By: #### L 501.9520, L501.5200, L501.2300, L500.4050, L100.0100, L506.0400 ####[facility] [address] [place], [address] TEAR DROP RARE Normal [facility] Comment on above: Performed By: #### L 501.9520, L501.5200, L501.2300, L500.4050, L100.0100, L506.0400 ####[facility] [address] [place], [address] PLT EST ADEQUATE Normal ADEQ [facility] Comment on above: Performed By: #### L 501.9520, L501.5200, L501.2300, L500.4050, L100.0100, L506.0400 ####[facility] [address] [place], [address] SMEAR COMMENT SCANNED Normal [facility] Comment on above: Performed By: #### L 501.9520, L501.5200, L501.2300, L500.4050, L100.0100, L506.0400 ####[facility] [address] [place], [address] Absolute Neut Normal 2.0-7.[address] [facility] Comment on above: Result Comment: DUPL ICATED TO INTERNAL ORDERS Performed By: #### L 500.4050, L100.0100 ####[facility] [address] [place], [address] HCT Normal 37-[address] [facility] Comment on above: Result Comment: DUPL ICATED TO INTERNAL ORDERS Performed By: #### L 500.4050, L100.0100 ####[facility] [address] [place], [address] HGB Normal 12.0-15.[address] [facility] Comment on above: Result Comment: DUPL ICATED TO INTERNAL ORDERS Performed By: #### L 500.4050, L100.0100 ####[facility] [address] [place], [address] MCH Normal 27.0-32.[address] [facility] Comment on above: Result Comment: DUPL ICATED TO INTERNAL ORDERS Performed By: #### L 500.4050, L100.0100 ####[facility] [address] [place], [address] MCHC Normal 32-[address] [facility] Comment on above: Result Comment: DUPL ICATED TO INTERNAL ORDERS Performed By: #### L 500.4050, L100.0100 ####[facility] [address] [place], [address] MCV Normal 81-[address] [facility] Comment on above: Result Comment: DUPL ICATED TO INTERNAL ORDERS Performed By: #### L 500.4050, L100.0100 ####[facility] [address] [place], [address] NEUT% Normal 47-[address] [facility] Comment on above: Result Comment: DUPL ICATED TO INTERNAL ORDERS Performed By: #### L 500.4050, L100.0100 ####[facility] [address] [place], [address] PLT Normal 150-[address] [facility] Comment on above: Result Comment: DUPL ICATED TO INTERNAL ORDERS Performed By: #### L 500.4050, L100.0100 ####[facility] [address] [place], [address] RBC Normal 4.2-5.[address] [facility] Comment on above: Result Comment: DUPL ICATED TO INTERNAL ORDERS Performed By: #### L 500.4050, L100.0100 ####[facility] [address] [place], [address] RDW CV Normal 11.6-14.[address] [facility] Comment on above: Result Comment: DUPL ICATED TO INTERNAL ORDERS Performed By: #### L 500.4050, L100.0100 ####[facility] [address] [place], [address] RDW SD Normal 35.1-43.[address] [facility] Comment on above: Result Comment: DUPL ICATED TO INTERNAL ORDERS Performed By: #### L 500.4050, L100.0100 ####[facility] [address] [place], [address] WBC Normal 4.4-11.[address] [facility] Comment on above: Result Comment: DUPL ICATED TO INTERNAL ORDERS Performed By: #### L 500.4050, L100.0100 ####[facility] [address] [place], [address] Comprehensive Metabolic Prof caon 09-21-2024 Albumin [Mass/Vol] 3.3 g/dL Normal 3.2-5.0 [facility] Comment on above: Performed By: #### L 501.9520, L501.5200, L501.2300, L500.4050, L100.0100, L506.0400 ####[facility] [address] [place], [address] Albumin/Globulin [Mass ratio] 0.9 {ratio} Normal 0.9-2.[address] [facility] Comment on above: Performed By: #### L 501.9520, L501.5200, L501.2300, L500.4050, L100.0100, L506.0400 ####[facility] [address] [place], [address] ALK P 72 U/L Normal 45-[address] [facility] Comment on above: Performed By: #### L 501.9520, L501.5200, L501.2300, L500.4050, L100.0100, L506.0400 ####[facility] [address] [place], [address] ALT [Catalytic activity/Vol] 16 U/L Normal 13-[address] [facility] Comment on above: Performed By: #### L 501.9520, L501.5200, L501.2300, L500.4050, L100.0100, L506.0400 ####[facility] [address] [place], [address] AST [Catalytic activity/Vol] 14 U/L Low 15-[address] [facility] Comment on above: Performed By: #### L 501.9520, L501.5200, L501.2300, L500.4050, L100.0100, L506.0400 ####[facility] [address] [place], [address] Bilirubin [Mass/Vol] 0.40 mg/dL Normal 0.20-1.00 [facility] Comment on above: Result Comment: For patients on eltrombopag therapy, use of Dimension Bryant TBIL is not recommended. Performed By: #### L 501.9520, L501.5200, L501.2300, L500.4050, L100.0100, L506.0400 ####[facility] [address] [place], [address] BUN/CRE 22.2 RATIO High 10-[address] [facility] Comment on above: Performed By: #### L 501.9520, L501.5200, L501.2300, L500.4050, L100.0100, L506.0400 ####[facility] [address] [place], [address] CA,Total 9.4 mg/dL Normal 8.5-10.[address] [facility] Comment on above: Performed By: #### L 501.9520, L501.5200, L501.2300, L500.4050, L100.0100, L506.0400 ####[facility] [address] [place], [address] Chloride [Moles/Vol] 106 mmol/L Normal 98-107 [facility] Comment on above: Performed By: #### L 501.9520, L501.5200, L501.2300, L500.4050, L100.0100, L506.0400 ####[facility] [address] [place], [address] CO2 [Moles/Vol] 26.0 mmol/L Normal 21.0-32.[address] [facility] Comment on above: Performed By: #### L 501.9520, L501.5200, L501.2300, L500.4050, L100.0100, L506.0400 ####[facility] [address] [place], [address] Creatinine [Mass/Vol] 0.72 mg/dL Normal 0.55-1.02 [facility] Comment on above: Result Comment: The validity of the calculated GFR GFRAA in patients over70 years has not been determined. Clinical correlation isessential. Performed By: #### L 501.9520, L501.5200, L501.2300, L500.4050, L100.0100, L506.0400 ####[facility] [address] [place], [address] ECRCL 65.28 ml/min Normal [facility] Comment on above: Performed By: #### L 501.9520, L501.5200, L501.2300, L500.4050, L100.0100, L506.0400 ####[facility] [address] [place], [address] EST GFR - AA 103 mL/min Normal >[address] [facility] Comment on above: Result Comment: Afri can [place] GFR Calc Performed By: #### L 501.9520, L501.5200, L501.2300, L500.4050, L100.0100, L506.0400 ####[facility] [address] [place], [address] GAP 7 Normal 5-[address] [facility] Comment on above: Performed By: #### L 501.9520, L501.5200, L501.2300, L500.4050, L100.0100, L506.0400 ####[facility] [address] [place], [address] GFR/1.73 sq M.predicted among non-blacks MDRD (S/P/Bld) [Vol rate/Area] 85 mL/min/{1.73_m2} Normal >60 [facility] Comment on above: Result Comment: Non- GFR Calc Performed By: #### L 501.9520, L501.5200, L501.2300, L500.4050, L100.0100, L506.0400 ####[facility] [address] [place], [address] Globulin (S) [Mass/Vol] 3.8 g/dL Normal 2.2-4.2 [facility] Comment on above: Performed By: #### L 501.9520, L501.5200, L501.2300, L500.4050, L100.0100, L506.0400 ####[facility] [address] [place], [address] Glucose [Mass/Vol] 127 mg/dL High 74-106 [facility] Comment on above: Result Comment: Fast ing Glucose result greater than or equal to 126 mg/dLsuggests DIABETES MELLITUS per A.D.A. criteria. Performed By: #### L 501.9520, L501.5200, L501.2300, L500.4050, L100.0100, L506.0400 ####[facility] [address] [place], [address] Potassium [Moles/Vol] 4.2 mmol/L Normal 3.5-5.1 [facility] Comment on above: Performed By: #### L 501.9520, L501.5200, L501.2300, L500.4050, L100.0100, L506.0400 ####[facility] [address] [place], [address] Sodium [Moles/Vol] 140 mmol/L Normal 136-145 [facility] Comment on above: Performed By: #### L 501.9520, L501.5200, L501.2300, L500.4050, L100.0100, L506.0400 ####[facility] [address] [place], [address] T PROT 7.1 g/dL Normal 6.4-8.[address] [facility] Comment on above: Performed By: #### L 501.9520, L501.5200, L501.2300, L500.4050, L100.0100, L506.0400 ####[facility] [address] [place], [address] Urea nitrogen [Mass/Vol] 16 mg/dL Normal 7-[address] [facility] Comment on above: Performed By: #### L 501.9520, L501.5200, L501.2300, L500.4050, L100.0100, L506.0400 ####[facility] [address] [place], [address] ALB Normal 3.2-5.[address] [facility] Comment on above: Result Comment: DUPL ICATED TO INTERNAL ORDERS Performed By: #### L 500.4050, L100.0100 ####[facility] [address] [place], [address] ALK P Normal 45-[address] [facility] Comment on above: Result Comment: DUPL ICATED TO INTERNAL ORDERS Performed By: #### L 500.4050, L100.0100 ####[facility] [address] [place], [address] ALT Normal 13-[address] [facility] Comment on above: Result Comment: DUPL ICATED TO INTERNAL ORDERS Performed By: #### L 500.4050, L100.0100 ####[facility] [address] [place], [address] AST Normal 15-[address] [facility] Comment on above: Result Comment: DUPL ICATED TO INTERNAL ORDERS Performed By: #### L 500.4050, L100.0100 ####[facility] [address] [place], [address] BUN Normal 7-[address] [facility] Comment on above: Result Comment: DUPL ICATED TO INTERNAL ORDERS Performed By: #### L 500.4050, L100.0100 ####[facility] [address] [place], [address] BUN/CRE Normal 10-[address] [facility] Comment on above: Result Comment: DUPL ICATED TO INTERNAL ORDERS Performed By: #### L 500.4050, L100.0100 ####[facility] [address] [place], [address] CA,Total Normal 8.5-10.[address] [facility] Comment on above: Result Comment: DUPL ICATED TO INTERNAL ORDERS Performed By: #### L 500.4050, L100.0100 ####[facility] [address] [place], [address] CL Normal 98-[address] [facility] Comment on above: Result Comment: DUPL ICATED TO INTERNAL ORDERS Performed By: #### L 500.4050, L100.0100 ####[facility] [address] [place], [address] CO2 Normal 21.0-32.[address] [facility] Comment on above: Result Comment: DUPL ICATED TO INTERNAL ORDERS Performed By: #### L 500.4050, L100.0100 ####[facility] [address] [place], [address] CREAT,SERUM Normal 0.55-1.[address] [facility] Comment on above: Result Comment: DUPL ICATED TO INTERNAL ORDERS Performed By: #### L 500.4050, L100.0100 ####[facility] [address] [place], [address] EST GFR Normal >[address] [facility] Comment on above: Result Comment: DUPL ICATED TO INTERNAL ORDERS Performed By: #### L 500.4050, L100.0100 ####[facility] [address] [place], [address] EST GFR - AA Normal >[address] [facility] Comment on above: Result Comment: DUPL ICATED TO INTERNAL ORDERS Performed By: #### L 500.4050, L100.0100 ####[facility] [address] [place], [address] GAP Normal 5-[address] [facility] Comment on above: Result Comment: DUPL ICATED TO INTERNAL ORDERS Performed By: #### L 500.4050, L100.0100 ####[facility] [address] [place], [address] GLU Normal 74-[address] [facility] Comment on above: Result Comment: DUPL ICATED TO INTERNAL ORDERS Performed By: #### L 500.4050, L100.0100 ####[facility] [address] [place], [address] Potassium Normal 3.5-5.[address] [facility] Comment on above: Result Comment: DUPL ICATED TO INTERNAL ORDERS Performed By: #### L 500.4050, L100.0100 ####[facility] [address] [place], [address] T BILI Normal 0.20-1.[address] [facility] Comment on above: Result Comment: DUPL ICATED TO INTERNAL ORDERS Performed By: #### L 500.4050, L100.0100 ####[facility] [address] [place], [address] T PROT Normal 6.4-8.[address] [facility] Comment on above: Result Comment: DUPL ICATED TO INTERNAL ORDERS Performed By: #### L 500.4050, L100.0100 ####[facility] [address] [place], [address] Comprehensive Metabolic Profil Normal 136-[address] [facility] Comment on above: Result Comment: DUPL ICATED TO INTERNAL ORDERS Performed By: #### L 500.4050, L100.0100 ####[facility] [address] [place], [address] Dacrocytes LM Ql (Bld)Ordere d By: Shannan Waldrop on 09-21-2024 Tear Drop Cells RARE [facility] Estimated glomerular filtrat ion rate (GFR) AmericanOrdered By: Shannan Waldrop on 09-21-2024 Estimated GFR (MDRD) Amer 103 mL/min >[address] [facility] Comment on above: GFR Calc Laboratory - Hematology and Cell countsOrdered By: Shannan Waldrop on 09-21-2024 Anisocytosis Ql (Bld) 2+ [facility] Magnesiumon 09-21-2024 Magnesium [Mass/Vol] 2.0 mg/dL Normal 1.6-2.6 [facility] Comment on above: Performed By: #### L 501.9520, L501.5200, L501.2300, L500.4050, L100.0100, L506.0400 ####[facility] [address] [place], [address] Manual differential comment Kuldip (Bld) [Interp]Ordered By: Shannan Waldrop on 09-21-2024 Differential Comment SCANNED [facility] Oncology Visit Reporton Oncology Visit Report Normal [facility] Ovalocyte detectionOrdered B y: Shannan Waldrop on 09-21-2024 Ovalocytes LM Ql (Bld) 2+ [facility] Ovalocytes LM Ql (Bld)Ordere d By: Shannan Waldrop on 09-21-2024 Ovalocytes 2+ [facility] Phosphoruson 09-21-2024 Phosphate [Mass/Vol] 3.9 mg/dL Normal 2.5-4.9 [facility] Comment on above: Performed By: #### L 501.9520, L501.5200, L501.2300, L500.4050, L100.0100, L506.0400 ####[facility] [address], [address] Platelet estimateOrdered By: Shannan Waldrop on 09-21-2024 Platelets LM Ql (Bld) ADEQUATE ADEQ [facility] Platelets LM Ql (Bld)Ordered By: Shannan Waldrop on 09-21-2024 Platelet Estimate ADEQUATE ADEQ [facility] T4 Free Directon 09-21-2024 T4 FREE DIRECT 1.08 ng/dL Normal 0.76-1.[address] [facility] Comment on above: Performed By: #### L 501.9520, L501.5200, L501.2300, L500.4050, L100.0100, L506.0400 ####[facility] [address] [place], [address] Teardrop cell detectionOrder ed By: Shannan Waldrop on 09-21-2024 Dacrocytes LM Ql (Bld) [facility] Thyroid Stim Hormone (TSH)on 09-21-2024 TSH 2.660 uIU/mL Normal 0.358-3.[address] [facility] Comment on above: Performed By: #### L 501.9520, L501.5200, L501.2300, L500.4050, L100.0100, L506.0400 ####[facility] [address] [place], [address] Carotid Duplex Ultrasoundon 09-20-2024 Carotid Duplex Ultrasound Normal [facility] Lower Ext Art Exam w/ Exerci elgin 09-20-2024 Lower Ext Art Exam w/ Exercise Normal [facility] Blood polychromasia detectio n by light microscopyOrdered By: Shannan Waldrop on 09-06-2024 Polychromasia LM Ql (Bld) [facility] CBC W/Diff, Automatedon 08-19 HYPOCHROMASIA 2+ Normal [facility] Comment on above: Performed By: #### L 100.0100, L500.4050, L501.5200 ####[facility] [address] [place], [address] Anisocytosis Ql (Bld) 2+ Normal [facility] Comment on above: Performed By: #### L 100.0100, L500.4050, L501.5200 ####[facility] [address] [place], [address] POLYCHROMASIA RARE Normal [facility] Comment on above: Performed By: #### L 100.0100, L500.4050, L501.5200 ####[facility] [address] [place], [address] SMEAR COMMENT SCANNED Normal [facility] Comment on above: Performed By: #### L 100.0100, L500.4050, L501.5200 ####[facility] [address] [place], [address] Comprehensive Metabolic Prof ilon 09-06-2024 Albumin [Mass/Vol] 3.6 g/dL Normal 3.2-5.0 [facility] Comment on above: Result Comment: PER [facility] PT NOT SCHEDULED Performed By: #### L 100.0100, L500.4050, L501.5200 ####[facility] [address] [place], [address] Albumin/Globulin [Mass ratio] 1.0 {ratio} Normal 0.9-2.[address] [facility] Comment on above: Performed By: #### L 100.0100, L500.4050, L501.5200 ####[facility] [address] [place], [address] ALK P 69 U/L Normal 45-[address] [facility] Comment on above: Result Comment: PER [facility] PT NOT SCHEDULED Performed By: #### L 100.0100, L500.4050, L501.5200 ####[facility] [address] [place], [address] ALT [Catalytic activity/Vol] 21 U/L Normal 13-[address] [facility] Comment on above: Result Comment: PER [facility] PT NOT SCHEDULED Performed By: #### L 100.0100, L500.4050, L501.5200 ####[facility] [address] [place], [address] AST [Catalytic activity/Vol] 15 U/L Normal 15-[address] [facility] Comment on above: Result Comment: PER [facility] PT NOT SCHEDULED Performed By: #### L 100.0100, L500.4050, L501.5200 ####[facility] [address] [place], [address] Bilirubin [Mass/Vol] 0.40 mg/dL Normal 0.20-1.00 [facility] Comment on above: Result Comment: For patients on eltrombopag therapy, use of Dimension Bryant TBIL is not recommended. Performed By: #### L 100.0100, L500.4050, L501.5200 ####[facility] [address] [place], [address] BUN/CRE 13.3 RATIO Normal 10-[address] [facility] Comment on above: Result Comment: PER [facility] PT NOT SCHEDULED Performed By: #### L 100.0100, L500.4050, L501.5200 ####[facility] [address] [place], [address] CA,Total 9.2 mg/dL Normal 8.5-10.[address] [facility] Comment on above: Result Comment: PER [facility] PT NOT SCHEDULED Performed By: #### L 100.0100, L500.4050, L501.5200 ####[facility] [address] [place], [address] Chloride [Moles/Vol] 108 mmol/L High 98-107 [facility] Comment on above: Result Comment: PER [facility] PT NOT SCHEDULED Performed By: #### L 100.0100, L500.4050, L501.5200 ####[facility] [address] [place], [address] CO2 [Moles/Vol] 23.0 mmol/L Normal 21.0-32.[address] [facility] Comment on above: Result Comment: PER [facility] PT NOT SCHEDULED Performed By: #### L 100.0100, L500.4050, L501.5200 ####[facility] [address] [place], [address] Creatinine [Mass/Vol] 0.83 mg/dL Normal 0.55-1.02 [facility] Comment on above: Result Comment: The validity of the calculated GFR GFRAA in patients over70 years has not been determined. Clinical correlation isessential. Performed By: #### L 100.0100, L500.4050, L501.5200 ####[facility] [address] [place], [address] ECRCL 63.56 ml/min Normal [facility] Comment on above: Performed By: #### L 100.0100, L500.4050, L501.5200 ####[facility] [address] [place], [address] EST GFR - AA 88 mL/min Normal >[address] [facility] Comment on above: Result Comment: Afri can Martiniquais GFR Calc Performed By: #### L 100.0100, L500.4050, L501.5200 ####[facility] [address] [place], [address] GAP 9 Normal 5-[address] [facility] Comment on above: Result Comment: PER [facility] PT NOT SCHEDULED Performed By: #### L 100.0100, L500.4050, L501.5200 ####[facility] [address] [place], [address] GFR/1.73 sq M.predicted among non-blacks MDRD (S/P/Bld) [Vol rate/Area] 73 mL/min/{1.73_m2} Normal >60 [facility] Comment on above: Result Comment: Non- GFR Calc Performed By: #### L 100.0100, L500.4050, L501.5200 ####[facility] [address] [place], [address] Globulin (S) [Mass/Vol] 3.5 g/dL Normal 2.2-4.2 [facility] Comment on above: Performed By: #### L 100.0100, L500.4050, L501.5200 ####[facility] [address] [place], [address] Glucose [Mass/Vol] 160 mg/dL High 74-106 [facility] Comment on above: Result Comment: Fast ing Glucose result greater than or equal to 126 mg/dLsuggests DIABETES MELLITUS per A.D.A. criteria. Performed By: #### L 100.0100, L500.4050, L501.5200 ####[facility] [address] [place], [address] Potassium [Moles/Vol] 3.7 mmol/L Normal 3.5-5.1 [facility] Comment on above: Result Comment: PER [facility] PT NOT SCHEDULED Performed By: #### L 100.0100, L500.4050, L501.5200 ####[facility] [address] [place], [address] Sodium [Moles/Vol] 140 mmol/L Normal 136-145 [facility] Comment on above: Result Comment: PER [facility] PT NOT SCHEDULED Performed By: #### L 100.0100, L500.4050, L501.5200 ####[facility] [address] [place], [address] T PROT 7.1 g/dL Normal 6.4-8.[address] [facility] Comment on above: Result Comment: PER [facility] PT NOT SCHEDULED Performed By: #### L 100.0100, L500.4050, L501.5200 ####[facility] [address] [place], [address] Urea nitrogen [Mass/Vol] 11 mg/dL Normal 7-[address] [facility] Comment on above: Result Comment: PER [facility] PT NOT SCHEDULED Performed By: #### L 100.0100, L500.4050, L501.5200 ####[facility] [address] [place], [place], [address] Hypochromatic red blood cell detectionOrdered By: Shannan Waldrop on 09-06-2024 Hypochromia Ql (Bld) 2+ [facility] Hypochromia Ql (Bld)Ordered By: Shannan Waldrop on 09-06-2024 Hypochromasia 2+ [facility] Magnesiumon 09-06-2024 Magnesium [Mass/Vol] 1.7 mg/dL Normal 1.6-2.6 [facility] Comment on above: Performed By: #### L 100.0100, L500.4050, L501.5200 ####[facility] [address] [place], [place], [address] Oncology Visit Reporton 08-19 Oncology Visit Report Normal [facility] Polychromasia LM Ql (Bld)Ord ered By: Shannan Waldrop on 09-06-2024 Polychromasia RARE [facility] Bilirubin Test strip Ql (U)O rdered By: Sharif Christianson on 08-31-2024 Bilirubin Ql (U) Negative Negative [facility] CT Chest AND Abd W/ Contrast on 08-31-2024 CT Chest AND Abd W/ Contrast Normal [facility] Cardiology Visit Reporton Cardiology Visit Report Normal [facility] Epithelial cells.squamous LM Ql (Urine sed)Ordered By: Sharif Christianson on 08-31-2024 Epithelial cells.squamous LM.HPF (Urine sed) [#/Area] 0 /[HPF] 5-[address] [facility] Glucose Ql (U)Ordered By: Yessenia Christianson on 08-31-2024 Urine Glucose (UA) Normal mg/dl Normal [facility] Ketones Test strip Ql (U)Ord ered By: Sharif Christianson on 01-14-2025 Ketones Ql (U) Negative Negative [facility] Microalb:Creat Ratio,Random URon 08-31-2024 Creatinine [Mass/Vol] 69.50 mg/dL Normal NO RANGE EST. [facility] Comment on above: Order Comment: Order Date: 08/26/24Order Info: [id number] - MIACRE Performed By: #### L 502.0250 ####[facility] [address] [place], [place], [address] MALB:CRE 17.8 mg/g CRE Normal <30 mg/g CRE [facility] Comment on above: Order Comment: Order Date: 08/26/24Order Info: [id number] - MIACRE Performed By: #### L 502.0250 ####[facility] [address] [place], [place], [address] MICROALBUMIN,UR 12.4 mg/L Normal NO RANGE EST. [facility] Comment on above: Order Comment: Order Date: 08/26/24Order Info: [id number] - MIACRE Performed By: #### L 502.0250 ####[facility] [address] [place], [place], [address] Microscopic analysis of urin e for red blood cells (RBC)Ordered By: Sharif Christianson on 08-31-2024 Urine RBC 0 SEEN /hpf 0-[address] [facility] Mucus LM Ql (Urine sed)Order ed By: Sharif Christianson on 08-31-2024 Mucus Ql (Urine sed) 0 SEEN /hpf [facility] Nitrite Test strip Ql (U)Ord ered By: Sharif Christianson on 08-31-2024 Nitrite Ql (U) Negative Negative [facility] Protein Test strip Ql (U)Ord ered By: Sharif Christianson on 08-31-2024 Protein Ql (U) Negative Negative [facility] Random urine microalbumin me asurementOrdered By: Sharif Christianson on 08-31-2024 Urine Random Microalbumin 12.4 mg/L NO RANGE E ST. [facility] Urinalysis, Completeon 08-31 BACTERIA 4+ /hpf Normal None Seen [facility] Comment on above: Order Comment: CLEAN CATCH Performed By: #### L 400.0001 ####[facility] [address] [place], [address] EPI,SQUAMOUS 0-5 SEEN Normal 5-[address] [facility] Comment on above: Order Comment: CLEAN CATCH Performed By: #### L 400.0001 ####[facility] [address] [place], [address] WBC 25-50 SEEN Normal 0-[address] [facility] Comment on above: Order Comment: CLEAN CATCH Performed By: #### L 400.0001 ####[facility] [address] [place], [address] Mucus Ql (Urine sed) 0 SEEN Normal [facility] Comment on above: Order Comment: CLEAN CATCH Performed By: #### L 400.0001 ####[facility] [address] [place], [address] RBC 0 SEEN Normal 0-[address] [facility] Comment on above: Order Comment: CLEAN CATCH Performed By: #### L 400.0001 ####[facility] [address] [place], [address] Urine albumin/creatinine rat io for detection of microalbuminuriaOrdered By: Sharif Christianson on 08-31-2024 Urine Microalbumin/Creatinine Ratio 17.8 mg/g CRE <[address] [facility] Urine blood detectionOrdered By: Sharif Christianson on 08-31-2024 Urine Occult Blood 10 /ul High Negative [facility] Urine clarityOrdered By: Link Christianson on 08-31-2024 Clarity (U) Cloudy Clear [facility] Urine color determinationOrd ered By: Sharif Christianson on 08-31-2024 Color (U) Yellow Yellow [facility] Urine creatinine measurement (mass/volume)Ordered By: Sharif Christianson on 08-31-2024 Creatinine (U) [Mass/Vol] 69.50 mg/dL NO RANGE EST. [facility] Urine leukocyte esterase det ection by dipstickOrdered By: Sharif Christianson on 08-31-2024 Leukocyte esterase Test strip Ql (U) 100 /ul High Negative [facility] Urine pHOrdered By: Sharif brasher on 08-31-2024 pH (U) 7.0 [pH] 5.0 - 8.[address] [facility] Urine sediment bacteria coun t by microscopy (number/high power field)Ordered By: Sharif Christianson on 08-31-2024 Bacteria LM.HPF (Urine sed) [#/Area] 4 /[HPF] None Seen [facility] Urine specific gravity measu rementOrdered By: Sahrif Christianson on 08-31-2024 Specific gravity (U) [Rel density] 1.015 1.002-1.[address] [facility] Urobilinogen Ql (U)Ordered B y: Sharif Christianson on 08-31-2024 Urobilinogen (U) [Mass/Vol] 1 mg/dL High Normal [facility] White blood cell countOrdere d By: Sharif Christianson on 08-31-2024 Urine WBC 25-50 SEEN /hpf 0-[address] [facility] 02-HS-Wkapqew DOrdered By: Nataly Christianson on 08-26-2024 Vitamin D 25-Hydroxy 89.2 ng/mL [facility] Comment on above: Vitamin D 25(OH) Sta tus Range Deficiency <20 ng/mL (50nmol/L) Insufficiency 20 - 30 ng/mL (50 - 75 nmol/L) Sufficiency 30 - 100 ng/mL (75 - 250 nmol/L) Toxicity >100 ng/mL (>250 nmol/L) Absolute neutrophil countOrd ered By: Sharif Christianson on 08-26-2024 Neutrophils (Bld) [#/Vol] 2.2 10*3/uL 2.0-7.[address] [facility] Albumin to globulin ratioOrd ered By: Sharif Christianson on 08-26-2024 Albumin/Globulin [Mass ratio] 1.0 {ratio} 0.9-2.[address] [facility] Basophil percentageOrdered B y: Sharif Christianson on 08-26-2024 Basophils/100 WBC (Bld) 0.3 % 0-1 [facility] Bilirubin, totalOrdered By: Sharif Christianson on 08-26-2024 Bilirubin [Mass/Vol] 0.50 mg/dL 0.20-1.00 [facility] Comment on above: For patients on eltr ombopag therapy, use of Dimension Bryant TBIL is not recommended. Blood urea nitrogen (BUN)/cr eatinine ratioOrdered By: Sharif Christianson on 08-26-2024 Urea nitrogen/Creatinine [Mass ratio] 16.0 mg/mg 10-[address] [facility] CBC W/Diff, Automatedon SMEAR COMMENT COMMENT Normal [facility] Comment on above: Order Comment: Order Date: 08/26/24Order Info: [id number] - CBCD Result Comment: LYMP HOPENIA. Performed By: #### L 100.0100, L506.1000, L501.9985, L500.4050, L500.4100 ####[facility] [address] [place], [address] Anisocytosis Ql (Bld) 1+ Normal [facility] Comment on above: Order Comment: Order Date: 08/26/24Order Info: [id number] - CBCD Performed By: #### L 100.0100, L506.1000, L501.9985, L500.4050, L500.4100 ####[facility] [address] [place], [address] PLT EST MOD DEC Normal ADEQ [facility] Comment on above: Order Comment: Order Date: 08/26/24Order Info: [id number] - CBCD Performed By: #### L 100.0100, L506.1000, L501.9985, L500.4050, L500.4100 ####[facility] [address] [place], [address] Carbon dioxide measurementOr dered By: Sharif Christianson on 08-26-2024 CO2 [Moles/Vol] 23.0 mmol/L 21.0-32.[address] [facility] Chloride measurementOrdered By: Sharif Christianson on 08-26-2024 Chloride [Moles/Vol] 109 mmol/L High 98-107 [facility] Comprehensive Metabolic Prof ilon 08-26-2024 Albumin [Mass/Vol] 3.2 g/dL Normal 3.2-5.0 [facility] Comment on above: Order Comment: Order Date: 08/26/24Order Info: [id number] - CMPOrder Info: [id number] - LIPID Performed By: #### L 100.0100, L506.1000, L501.9985, L500.4050, L500.4100 ####[facility] [address] [place], [address] Albumin/Globulin [Mass ratio] 1.0 {ratio} Normal 0.9-2.[address] [facility] Comment on above: Order Comment: Order Date: 08/26/24Order Info: [id number] - CMPOrder Info: [id number] - LIPID Performed By: #### L 100.0100, L506.1000, L501.9985, L500.4050, L500.4100 ####[facility] [address] [place], [address] ALK P 68 U/L Normal 45-[address] [facility] Comment on above: Order Comment: Order Date: 08/26/24Order Info: [id number] - CMPOrder Info: [id number] - LIPID Performed By: #### L 100.0100, L506.1000, L501.9985, L500.4050, L500.4100 ####[facility] [address] [place], [address] ALT [Catalytic activity/Vol] 46 U/L Normal 13-[address] [facility] Comment on above: Order Comment: Order Date: 08/26/24Order Info: [id number] - CMPOrder Info: [id number] - LIPID Performed By: #### L 100.0100, L506.1000, L501.9985, L500.4050, L500.4100 ####[facility] [address] [place], [address] AST [Catalytic activity/Vol] 29 U/L Normal 15-[address] [facility] Comment on above: Order Comment: Order Date: 08/26/24Order Info: [id number] - CMPOrder Info: [id number] - LIPID Performed By: #### L 100.0100, L506.1000, L501.9985, L500.4050, L500.4100 ####[facility] [address] [place], [address] Bilirubin [Mass/Vol] 0.50 mg/dL Normal 0.20-1.00 [facility] Comment on above: Order Comment: Order Date: 08/26/24Order Info: [id number] - CMPOrder Info: [id number] - LIPID Result Comment: For patients on eltrombopag therapy, use of Dimension Bryant TBIL is not recommended. Performed By: #### L 100.0100, L506.1000, L501.9985, L500.4050, L500.4100 ####[facility] [address] [place], [address] BUN/CRE 16.0 RATIO Normal 10-[address] [facility] Comment on above: Order Comment: Order Date: 08/26/24Order Info: [id number] - CMPOrder Info: [id number] - LIPID Performed By: #### L 100.0100, L506.1000, L501.9985, L500.4050, L500.4100 ####[facility] [address] [place], [address] CA,Total 8.7 mg/dL Normal 8.5-10.[address] [facility] Comment on above: Order Comment: Order Date: 08/26/24Order Info: [id number] - CMPOrder Info: [id number] - LIPID Performed By: #### L 100.0100, L506.1000, L501.9985, L500.4050, L500.4100 ####[facility] [address] [place], [address] Chloride [Moles/Vol] 109 mmol/L High 98-107 [facility] Comment on above: Order Comment: Order Date: 08/26/24Order Info: [id number] - CMPOrder Info: [id number] - LIPID Performed By: #### L 100.0100, L506.1000, L501.9985, L500.4050, L500.4100 ####[facility] [address] [place], [address] CO2 [Moles/Vol] 23.0 mmol/L Normal 21.0-32.[address] [facility] Comment on above: Order Comment: Order Date: 08/26/24Order Info: [id number] - CMPOrder Info: [id number] - LIPID Performed By: #### L 100.0100, L506.1000, L501.9985, L500.4050, L500.4100 ####[facility] [address] [place], [address] Creatinine [Mass/Vol] 0.75 mg/dL Normal 0.55-1.02 [facility] Comment on above: Order Comment: Order Date: 08/26/24Order Info: [id number] - CMPOrder Info: [id number] - LIPID Result Comment: The validity of the calculated GFR GFRAA in patients over70 years has not been determined. Clinical correlation isessential. Performed By: #### L 100.0100, L506.1000, L501.9985, L500.4050, L500.4100 ####[facility] [address] [place], [address] EST GFR - AA 98 mL/min Normal >[address] [facility] Comment on above: Order Comment: Order Date: 08/26/24Order Info: [id number] - CMPOrder Info: [id number] - LIPID Result Comment: Afri can [place] GFR Calc Performed By: #### L 100.0100, L506.1000, L501.9985, L500.4050, L500.4100 ####[facility] [address] [place], [address] GAP 9 Normal 5-[address] [facility] Comment on above: Order Comment: Order Date: 08/26/24Order Info: [id number] - CMPOrder Info: [id number] - LIPID Performed By: #### L 100.0100, L506.1000, L501.9985, L500.4050, L500.4100 ####[facility] [address] [place], [address] GFR/1.73 sq M.predicted among non-blacks MDRD (S/P/Bld) [Vol rate/Area] 81 mL/min/{1.73_m2} Normal >60 [facility] Comment on above: Order Comment: Order Date: 08/26/24Order Info: [id number] - CMPOrder Info: [id number] - LIPID Result Comment: Non- GFR Calc Performed By: #### L 100.0100, L506.1000, L501.9985, L500.4050, L500.4100 ####[facility] [address] [place], [address] Globulin (S) [Mass/Vol] 3.2 g/dL Normal 2.2-4.2 [facility] Comment on above: Order Comment: Order Date: 08/26/24Order Info: [id number] - CMPOrder Info: [id number] - LIPID Performed By: #### L 100.0100, L506.1000, L501.9985, L500.4050, L500.4100 ####[facility] [address] [place], [address] Glucose [Mass/Vol] 158 mg/dL High 74-106 [facility] Comment on above: Order Comment: Order Date: 08/26/24Order Info: [id number] - CMPOrder Info: [id number] - LIPID Result Comment: Fast ing Glucose result greater than or equal to 126 mg/dLsuggests DIABETES MELLITUS per A.D.A. criteria. Performed By: #### L 100.0100, L506.1000, L501.9985, L500.4050, L500.4100 ####[facility] [address], [address] Potassium [Moles/Vol] 4.0 mmol/L Normal 3.5-5.1 [facility] Comment on above: Order Comment: Order Date: 08/26/24Order Info: [id number] - CMPOrder Info: [id number] - LIPID Performed By: #### L 100.0100, L506.1000, L501.9985, L500.4050, L500.4100 ####[facility] [address] [place], [address] Sodium [Moles/Vol] 141 mmol/L Normal 136-145 [facility] Comment on above: Order Comment: Order Date: 08/26/24Order Info: [id number] - CMPOrder Info: [id number] - LIPID Performed By: #### L 100.0100, L506.1000, L501.9985, L500.4050, L500.4100 ####[facility] [address], [address] T PROT 6.4 g/dL Normal 6.4-8.[address] [facility] Comment on above: Order Comment: Order Date: 08/26/24Order Info: [id number] - CMPOrder Info: [id number] - LIPID Performed By: #### L 100.0100, L506.1000, L501.9985, L500.4050, L500.4100 ####[facility] [address] [place], [address] Urea nitrogen [Mass/Vol] 12 mg/dL Normal 7-[address] [facility] Comment on above: Order Comment: Order Date: 08/26/24Order Info: [id number] - CMPOrder Info: [id number] - LIPID Performed By: #### L 100.0100, L506.1000, L501.9985, L500.4050, L500.4230 ####[facility] [address] [place], [place], [id number] Eosinophil percentageOrdered By: Sharif Christianson on 08-26-2024 Eosinophils/100 WBC (Bld) 1.1 % 0-[address] [facility] Erythrocyte distribution wid th (RBC) [Ratio]Ordered By: Sharif Christianson on 08-26-2024 Erythrocyte distribution width (RBC) [Entitic vol] 70.5 fL High 35.1-43.9 [facility] Erythrocyte distribution wid th ratioOrdered By: Sharif Christianson on 08-26-2024 Erythrocyte distribution width (RBC) [Ratio] 21.1 % High 11.6-14.[address] [facility] Estimated glomerular filtrat ion rate (GFR) AmericanOrdered By: Sharif Christianson on 08-26-2024 Estimated GFR (MDRD) Amer 98 mL/min >[address] [facility] Comment on above: GFR Calc Glomerular filtration rate ( GFR) estimationOrdered By: Sharif Christianson on 08-26-2024 Estimated GFR (MDRD) Non-Af Amer 81 mL/min >[address] [facility] Comment on above: Non- GFR Calc Glucose measurementOrdered B y: Sharif Christianson on 08-26-2024 Glucose [Mass/Vol] 158 mg/dL High 74-106 [facility] Comment on above: Fasting Glucose resu lt greater than or equal to 126 mg/dL suggests DIABETES MELLITUS per A.D.A. criteria. Hematocrit Auto (Bld) [Volum e fraction]Ordered By: Sharif Christianson on 08-26-2024 Hematocrit (Bld) [Volume fraction] 28.3 % Low 37-[address] [facility] Hemoglobin A1con 08-26-2024 HbA1c (Bld) [Mass fraction] 7.8 % High 3.8-5.[address] [facility] Comment on above: Order Comment: Order Date: 08/26/24Order Info: [id number] - A1C Result Comment: Norm al < 5.7 % Prediabetic 5.7 - 6.4 % Diabetic >or= 6.5 % Please note range changes. Performed By: #### L 100.0100, L506.1000, L501.9983, L500.4050, L500.4100 ####[facility] [address] [place], [address] Hemoglobin A1c percentageOrd ered By: Sharif Christianson on 08-26-2024 HbA1c (Bld) [Mass fraction] 7.8 % High 3.8-5.[address] [facility] Comment on above: Normal < 5.7 % Predi abetic 5.7 - 6.4 % Diabetic >or= 6.5 % Please note range changes. Hemoglobin measurementOrdere d By: Sharif Christianson on 08-26-2024 Hemoglobin (Bld) [Mass/Vol] 8.8 g/dL Low 12.0-15.[address] [facility] High density lipoprotein (HD L) measurementOrdered By: Sharif Christianson on 08-26-2024 Cholesterol in HDL [Mass/Vol] 55 mg/dL >[address] [facility] Comment on above: The drugs N-Acetylcy steine and Metamizole may falsely depress this assay. Reference Range HDL <40 mg/dL Low HDL Cholesterol HDL >or= 60 mg/dL High HDL Cholesterol Immature granulocytes/100 WB C Auto (Bld)Ordered By: Sharif Christianson on 08-26-2024 Immature granulocytes/100 WBC (Bld) 1.400 % High 0.0-0.[address] [facility] Comment on above: IG% - Immature Granu locytes (promyelocytes, myelocytes and metamyelocytes) > 1% indicates that a LEFT SHIFT is Present. Laboratory - Chemistry and C hemistry - challengeOrdered By: Sharif Christianson on 08-26-2024 AST [Catalytic activity/Vol] 29 U/L 15-[address] [facility] Laboratory - Hematology and Cell countsOrdered By: Sharif Christianson on 08-26-2024 Anisocytosis Ql (Bld) 1+ [facility] Lipid Profileon 08-26-2024 Cholesterol [Mass/Vol] 89 mg/dL Normal 200 [facility] Comment on above: Order Comment: Order Date: 08/26/24Order Info: [id number] - CMPOrder Info: [id number] - LIPID Result Comment: <200 mg/dL Desirable 200-240 mg/dL Borderline >240 mg/dL High Risk Performed By: #### L 100.0100, L506.1000, L501.9985, L500.4050, L500.4100 ####[facility] [address] [place], [address] Cholesterol in HDL [Mass/Vol] 55 mg/dL Normal [facility] Comment on above: Order Comment: Order Date: 08/26/24Order Info: [id number] - CMPOrder Info: [id number] - LIPID Result Comment: The drugs N-Acetylcysteine and Metamizole may falselydepress this assay. Reference Range HDL <40 mg/dL Low HDL Cholesterol HDL >or= 60 mg/dL High HDL Cholesterol Performed By: #### L 100.0100, L506.1000, L501.9985, L500.4050, L500.4100 ####[facility] [address] [place], [address] Cholesterol in LDL [Mass/Vol] 16 mg/dL Normal 0-[address] [facility] Comment on above: Order Comment: Order Date: 08/26/24Order Info: [id number] - CMPOrder Info: [id number] - LIPID Performed By: #### L 100.0100, L506.1000, L501.9985, L500.4050, L500.4100 ####[facility] [address] [place], [address] Cholesterol in VLDL [Mass/Vol] 18 mg/dL Normal 5-[address] [facility] Comment on above: Order Comment: Order Date: 08/26/24Order Info: [id number] - CMPOrder Info: [id number] - LIPID Performed By: #### L 100.0100, L506.1000, L501.9985, L500.4050, L500.4100 ####[facility] [address] [place], [address] Triglyceride [Mass/Vol] 89 mg/dL Normal [facility] Comment on above: Order Comment: Order Date: 08/26/24Order Info: [id number] - CMPOrder Info: [id number] - LIPID Result Comment: The drugs N-Acetylcysteine and Metamizole may falselydepress this assay.Serum Triglycerides Reference Interval Normal <150 mg/dL Borderline high 150 - 199 mg/dL High 200 - 499 mg/dL Very High > or = 500 mg/dL Performed By: #### L 100.0100, L506.1000, L501.9985, L500.4050, L500.4100 ####[facility] [address] [place], [address] Low density lipoprotein (LDL ) cholesterol measurementOrdered By: Sharif Christianson on 08-26-2024 Cholesterol in LDL [Mass/Vol] 16 mg/dL 0-[address] [facility] Lymphocytes Auto (Unsp spec) [#/Vol]Ordered By: Sharif Christianson on 08-26-2024 Lymphocytes (Bld) [#/Vol] 0.57 10*3/uL Low 0.83-4.[address] [facility] Lymphocytes/100 WBC Auto (Un sp spec)Ordered By: Sharif Christianson on 08-26-2024 Lymphocytes/100 WBC (Bld) 16.2 % Low 19-[address] [facility] MCV (mean corpuscular volume ) determinationOrdered By: Sharif Christianson on 08-26-2024 MCV (RBC) [Entitic vol] 95.9 fL 81-99 [facility] Manual differential comment Kuldip (Bld) [Interp]Ordered By: Sharif Christianson on 08-26-2024 Differential Comment COMMENT [facility] Comment on above: LYMPHOPENIA. Mean corpuscular hemoglobin (MCH) determinationOrdered By: Sharif Christianson on 08-26-2024 MCH (RBC) [Entitic mass] 29.8 pg 27.0-32.[address] [facility] Mean corpuscular hemoglobin concentration (MCHC) determinationOrdered By: Sharif Christianson on 08-26-2024 MCHC (RBC) [Mass/Vol] 31.1 g/dL Low 32-36 [facility] Mean platelet volume determi nationOrdered By: Sharif Christianson on 08-26-2024 Platelet mean volume (Bld) [Entitic vol] 10.4 fL 6.2-12.[address] [facility] Monocyte percentageOrdered B y: Sharif Christianson on 08-26-2024 Monocytes/100 WBC (Bld) 19.9 % High 0-10 [facility] Neutrophil percentageOrdered By: Sharif Christianson on 08-26-2024 Neutrophils/100 WBC (Bld) 61.1 % 47-[address] [facility] Nucleated red blood cell per centageOrdered By: Sharif Christianson on 08-26-2024 Nucleated RBC/100 WBC (Bld) [Ratio] 0 % 0-[address] [facility] Platelet countOrdered By: Yessenia Christianson on 08-26-2024 Platelets (Bld) [#/Vol] 81 10*3/uL Low 150-450 [facility] Platelets LM Ql (Bld)Ordered By: Sharif Christianson on 08-26-2024 Platelet Estimate MOD DEC ADEQ [facility] Potassium measurementOrdered By: Sharif Christianson on 08-26-2024 Potassium [Moles/Vol] 4.0 mmol/L 3.5-5.1 [facility] RBC Auto (Bld) [#/Vol]Ordere d By: Sharif Christianson on 08-26-2024 RBC (Bld) [#/Vol] 2.95 10*6/uL Low 4.2-5.4 [facility] Serum anion gap measurementO rdered By: Sharif Christianson on 08-26-2024 Anion gap [Moles/Vol] 9 mmol/L 5-15 [facility] Serum globulin measurementOr dered By: Sharif Christianson on 08-26-2024 Globulin (S) [Mass/Vol] 3.2 g/dL 2.2-4.2 [facility] Serum or plasma alanine amezquita otransferase (ALT) measurementOrdered By: Shraif Christianson on 08-26-2024 ALT [Catalytic activity/Vol] 46 U/L 13-[address] [facility] Serum or plasma albumin joaquin urement (mass/volume)Ordered By: Sharif Christianson on 08-26-2024 Albumin [Mass/Vol] 3.2 g/dL 3.2-5.0 [facility] Serum or plasma alkaline gumaro sphatase measurementOrdered By: Sharif Christianson on 08-26-2024 ALP [Catalytic activity/Vol] 68 U/L 45-[address] [facility] Serum or plasma calcium joaquin urement (mass/volume)Ordered By: Sharif Christianson on 08-26-2024 Calcium [Mass/Vol] 8.7 mg/dL 8.5-10.1 [facility] Serum or plasma cholesterol measurement (mass/volume)Ordered By: Sharif Christianson on 08-26-2024 Cholesterol [Mass/Vol] 89 mg/dL <200 [facility] Comment on above: <200 mg/dL Desirable 200-240 mg/dL Borderline >240 mg/dL High Risk Serum or plasma creatinine m easurement (mass/volume)Ordered By: Sharif Christianson on 08-26-2024 Creatinine [Mass/Vol] 0.75 mg/dL 0.55-1.02 [facility] Comment on above: The validity of the calculated GFR & GFRAA in patients over 70 years has not been determined. Clinical correlation is essential. Serum or plasma urea nitroge n measurement (mass/volume)Ordered By: Sharif Christianson on 08-26-2024 Urea nitrogen [Mass/Vol] 12 mg/dL 7-[address] [facility] Sodium levelOrdered By: Sharif Christianson on 08-26-2024 Sodium [Moles/Vol] 141 mmol/L 136-145 [facility] Total proteinOrdered By: Link Christianson on 08-26-2024 Protein [Mass/Vol] 6.4 g/dL 6.4-8.2 [facility] Triglycerides measurementOrd ered By: Sharif Christianson on 08-26-2024 Triglyceride [Mass/Vol] 89 mg/dL <199 [facility] Comment on above: The drugs N-Acetylcy steine and Metamizole may falsely depress this assay.Serum Triglycerides Reference Interval Normal <150 mg/dL Borderline high 150 - 199 mg/dL High 200 - 499 mg/dL Very High > or = 500 mg/dL Very low density lipoprotein (VLDL) cholesterol measurementOrdered By: Sharif Christianson on 08-26-2024 VLDL Cholesterol 18 mg/dL 5-[address] [facility] Vitamin D,25 Hydroxyon 08-26 Vitamin D 25-OH 89.2 ng/mL Normal [facility] Comment on above: Order Comment: Order Date: 08/26/24Order Info: [id number] - [id number] Result Comment: Sariah min D 25(OH) Status Range Deficiency <20 ng/mL (50nmol/L) Insufficiency 20 - 30 ng/mL (50 - 75 nmol/L) Sufficiency 30 - 100 ng/mL (75 - 250 nmol/L) Toxicity >100 ng/mL (>250 nmol/L) Performed By: #### L 100.0100, L506.1000, L501.9985, L500.4050, L500.4100 ####[facility] [address] [place], [place], [address] White blood cell (WBC) count Ordered By: Sharif Christianson on 08-26-2024 WBC (Bld) [#/Vol] 3.5 10*3/uL Low 4.4-11.0 [facility] CBC W/Diff, Automatedon PATH REV Reviewed Normal [facility] Comment on above: Result Comment: Panc ytopenia.Leukopenia and neutropenia.Normocytic anemia.MILD Thrombocytopenia.Clinical correlation necessary.Gamal Murillo M.D. 08/24/24 AMENDED REPORT 08/24/24 1352 PATH REV previously reported as: Jeanette hough Performed By: #### L 100.0100 ####[facility] [address] [place], [place], [address] Pathologist review Kuldip (Unsp spec) [Interp]Ordered By: Shannan Waldrop on 08-23-2024 Differential Pathologist's Review Reviewed [facility] Comment on above: Previous reported re sult: December gianluca Edited by: MARK on 08/24/24:1352Pancytopenia.Leukopenia and neutropenia.Normocytic anemia.MILD Thrombocytopenia.Clinical correlation necessary.Gamal Murillo M.D. 08/24/24 AMENDED REPORT 08/24/24 1352 PATH REV previously reported as: December gianluca Review by pathologistOrdered By: Shannan Waldrop on 08-23-2024 Pathologist review Kuldip (Unsp spec) [Interp] Reviewed [facility] Comment on above: Previous reported re sult: Jeanette hough Edited by: MARK on 08/24/24:1352Pancytopenia.Leukopenia and neutropenia.Normocytic anemia.MILD Thrombocytopenia.Clinical correlation necessary.Gamal Murillo M.D. 08/24/24 AMENDED REPORT 08/24/24 1352 PATH REV previously reported as: Jeanette hough CBC W/Diff, Automatedon 12-3 0-2023 Absolute Lymph 0.69 X10 3/uL Low 0.83-4.[address] [facility] Comment on above: Performed By: #### L 100.0100 ####[facility] [address] [place], [address] Absolute Neut 3.0 X10 3/uL Normal 2.0-7.[address] [facility] Comment on above: Performed By: #### L 100.0100 ####[facility] [address] [place], [address] Basophils/100 WBC (Bld) 0.9 % Normal 0-1 [facility] Comment on above: Performed By: #### L 100.0100 ####[facility] [address] [place], [address] Eosinophils/100 WBC (Bld) 0.0 % Normal 0-[address] [facility] Comment on above: Performed By: #### L 100.0100 ####[facility] [address] [place], [address] Erythrocyte distribution width (RBC) [Ratio] 19.2 % High 11.6-14.[address] [facility] Comment on above: Performed By: #### L 100.0100 ####[facility] [address] [place], [address] Hematocrit (Bld) [Volume fraction] 28.4 % Low 37-[address] [facility] Comment on above: Performed By: #### L 100.0100 ####[facility] [address] [place], [address] Hemoglobin (Bld) [Mass/Vol] 8.9 g/dL Low 12.0-15.[address] [facility] Comment on above: Performed By: #### L 100.0100 ####[facility] [address] [place], [address] IG% 4.700 High 0.0-0.[address] [facility] Comment on above: Result Comment: IG% - Immature Granulocytes (promyelocytes, myelocytes andmetamyelocytes) > 1% indicates that a LEFT SHIFT is Present. Performed By: #### L 100.0100 ####[facility] [address] [place], [address] Lymphocytes/100 WBC (Bld) 15.4 % Low 19-[address] [facility] Comment on above: Performed By: #### L 100.0100 ####[facility] [address] [place], [address] MCH (RBC) [Entitic mass] 29.4 pg Normal 27.0-32.[address] [facility] Comment on above: Performed By: #### L 100.0100 ####[facility] [address] [place], [address] MCHC (RBC) [Mass/Vol] 31.3 g/dL Low 32-36 [facility] Comment on above: Performed By: #### L 100.0100 ####[facility] [address] [place], [address] MCV (RBC) [Entitic vol] 93.7 fL Normal 81-99 [facility] Comment on above: Performed By: #### L 100.0100 ####[facility] [address] [place], [address] Monocytes/100 WBC (Bld) 12.5 % High 0-10 [facility] Comment on above: Performed By: #### L 100.0100 ####[facility] [address] [place], [address] Neutrophils/100 WBC (Bld) 66.5 % Normal 47-[address] [facility] Comment on above: Performed By: #### L 100.0100 ####[facility] [address] [place], [address] Nucleated RBC (Bld) [#/Vol] 0.7 10*3/uL Normal 0-[address] [facility] Comment on above: Performed By: #### L 100.0100 ####[facility] [address] [place], [address] Platelet mean volume (Bld) [Entitic vol] 8.3 fL Normal 6.2-12.[address] [facility] Comment on above: Performed By: #### L 100.0100 ####[facility] [address] [place], [address] Platelets (Bld) [#/Vol] 280 10*3/uL Normal 150-[address] [facility] Comment on above: Performed By: #### L 100.0100 ####[facility] [address] [place], [address] RBC (Bld) [#/Vol] 3.03 10*6/uL Low 4.2-5.4 [facility] Comment on above: Performed By: #### L 100.0100 ####[facility] [address] [place], [address] RDW SD 64.8 fl High 35.1-43.[address] [facility] Comment on above: Performed By: #### L 100.0100 ####[facility] [address] [place], [address] WBC (Bld) [#/Vol] 4.5 10*3/uL Normal 4.4-11.0 [facility] Comment on above: Performed By: #### L 100.0100 ####[facility] [address] [place], [place], [address] CBC W/Diff, Automatedon 07-19 PATH REV Reviewed Normal [facility] Comment on above: Result Comment: Neut rophilic leukocytosis with left shiftNormocytic anemia.Clinical correlation necessary.Gamal Murillo M.D. 08/10/24Pathologist comment added AMENDED REPORT 08/10/24 1101 PATH REV previously reported as: December Performed By: #### L 501.5200, L500.4050, L100.0100 ####[facility] [address] [place], [place], [address] Blood band neutrophil count as percentage of total leukocytesOrdered By: Shannan Waldrop on 08-09-2024 Band form neutrophils/100 WBC (Bld) 3 % 0-[address] [facility] Blood eosinophils/100 leukoc ytesOrdered By: Shannan Waldrop on 08-09-2024 Eosinophils/100 WBC (Bld) 3 % 0-[address] [facility] Blood lymphocytes/100 leukoc ytesOrdered By: Shannan Waldrop on 08-09-2024 Lymphocytes/100 WBC (Bld) 8 % Low 19-[address] [facility] Blood monocytes/100 leukocyt esOrdered By: Shannan Waldrop on 08-09-2024 Monocytes/100 WBC (Bld) 10 % 0-10 [facility] Blood segmented neutrophils/ 100 leukocytesOrdered By: Shannan Waldrop on 08-09-2024 Segmented neutrophils/100 WBC (Bld) 76 % High 47-[address] [facility] Cells counted Mol[employer] (Bld/Ti ss) [#]Ordered By: Shannan Waldrop on 08-09-2024 Differential Total Cells Counted 100 MANUAL DIFF [facility] Comprehensive Metabolic Prof ilon 08-09-2024 Albumin [Mass/Vol] 3.1 g/dL Low 3.2-5.0 [facility] Comment on above: Performed By: #### L 501.5200, L500.4050, L100.0100 ####[facility] [address] [place], [address] Albumin/Globulin [Mass ratio] 1.0 {ratio} Normal 0.9-2.[address] [facility] Comment on above: Performed By: #### L 501.5200, L500.4050, L100.0100 ####[facility] [address] [place], [address] ALK P 106 U/L Normal 45-[address] [facility] Comment on above: Performed By: #### L 501.5200, L500.4050, L100.0100 ####[facility] [address] [place], [address] ALT [Catalytic activity/Vol] 37 U/L Normal 13-[address] [facility] Comment on above: Performed By: #### L 501.5200, L500.4050, L100.0100 ####[facility] [address] [place], [address] AST [Catalytic activity/Vol] 23 U/L Normal 15-[address] [facility] Comment on above: Performed By: #### L 501.5200, L500.4050, L100.0100 ####[facility] [address] [place], [address] Bilirubin [Mass/Vol] 0.40 mg/dL Normal 0.20-1.00 [facility] Comment on above: Result Comment: For patients on eltrombopag therapy, use of Dimension Bryant TBIL is not recommended. Performed By: #### L 501.5200, L500.4050, L100.0100 ####[facility] [address] [place], [address] BUN/CRE 12.8 RATIO Normal 10-[address] [facility] Comment on above: Performed By: #### L 501.5200, L500.4050, L100.0100 ####[facility] [address] [place], [address] CA,Total 8.6 mg/dL Normal 8.5-10.[address] [facility] [facility] Comment on above: Performed By: #### L 501.5200, L500.4050, L100.0100 ####[facility] [address] [place], [address] Chloride [Moles/Vol] 107 mmol/L Normal 98-107 [facility] Comment on above: Performed By: #### L 501.5200, L500.4050, L100.0100 ####[facility] [address] [place], [address] CO2 [Moles/Vol] 24.0 mmol/L Normal 21.0-32.[address] [facility] Comment on above: Performed By: #### L 501.5200, L500.4050, L100.0100 ####[facility] [address] [place], [address] Creatinine [Mass/Vol] 0.70 mg/dL Normal 0.55-1.02 [facility] Comment on above: Result Comment: The validity of the calculated GFR GFRAA in patients over70 years has not been determined. Clinical correlation isessential. Performed By: #### L 501.5200, L500.4050, L100.0100 ####[facility] [address] [place], [address] ECRCL 67.71 ml/min Normal [facility] Comment on above: Performed By: #### L 501.5200, L500.4050, L100.0100 ####[facility] [address] [place], [address] EST GFR - AA 106 mL/min Normal >[address] [facility] Comment on above: Result Comment: Afri can Martiniquais GFR Calc Performed By: #### L 501.5200, L500.4050, L100.0100 ####[facility] [address] [place], [address] GAP 7 Normal 5-[address] [facility] Comment on above: Performed By: #### L 501.5200, L500.4050, L100.0100 ####[facility] [address] [place], [address] GFR/1.73 sq M.predicted among non-blacks MDRD (S/P/Bld) [Vol rate/Area] 88 mL/min/{1.73_m2} Normal >60 [facility] Comment on above: Result Comment: Non- GFR Calc Performed By: #### L 501.5200, L500.4050, L100.0100 ####[facility] [address] [place], [address] Globulin (S) [Mass/Vol] 3.2 g/dL Normal 2.2-4.2 [facility] Comment on above: Performed By: #### L 501.5200, L500.4050, L100.0100 ####[facility] [address] [place], [address] Glucose [Mass/Vol] 209 mg/dL High 74-106 [facility] Comment on above: Result Comment: Gluc ose result greater than or equal to 200 mg/dLsuggests DIABETES MELLITUS per A.D.A. criteria. Performed By: #### L 501.5200, L500.4050, L100.0100 ####[facility] [address] [place], [address] Potassium [Moles/Vol] 3.8 mmol/L Normal 3.5-5.1 [facility] Comment on above: Performed By: #### L 501.5200, L500.4050, L100.0100 ####[facility] [address] [place], [address] Sodium [Moles/Vol] 138 mmol/L Normal 136-145 [facility] Comment on above: Performed By: #### L 501.5200, L500.4050, L100.0100 ####[facility] [address] [place], [address] T PROT 6.3 g/dL Low 6.4-8.[address] [facility] Comment on above: Performed By: #### L 501.5200, L500.4050, L100.0100 ####[facility] [address] [place], [address] Urea nitrogen [Mass/Vol] 9 mg/dL Normal 7-[address] [facility] Comment on above: Performed By: #### L 501.5200, L500.4050, L100.0100 ####[facility] [address] [place], [address] Magnesiumon 08-09-2024 Magnesium [Mass/Vol] 1.5 mg/dL Low 1.6-2.6 [facility] Comment on above: Performed By: #### L 501.5200, L500.4050, L100.0100 ####[facility] [address] [place], [address] Oncology Visit Reporton 07-19 Oncology Visit Report Normal [facility] Segmented neutrophils/100 WB C (Bld)Ordered By: Shannan Waldrop on 08-09-2024 Neutrophils/100 WBC (Bld) 76 % High 47-[address] [facility] Total cell countOrdered By: Shannan Waldrop on 08-09-2024 Cells counted Molgen (Bld/Tiss) [#] 100 MANUAL DIFF [facility] CBC W/Diff, Automatedon 07-18 PATH REV Reviewed Normal [facility] Comment on above: Result Comment: Leuk openia and neutropenia.Normocytic anemia.Clinical correlation necessary.Gamal Murillo M.D. 07/28/24 AMENDED REPORT 07/28/24 1356 PATH REV previously reported as: December Performed By: #### L 100.0100 ####[facility] [address] [place], [place], [id number] Blood metamyelocytes/100 nabeel kocytesOrdered By: Shannan Bullus on 07-27-2024 Metamyelocytes/100 WBC (Bld) 3 % High 0-[address] [facility] Blood promyelocytes/100 leuk ocytesOrdered By: Shannan Lowerykarus on 07-27-2024 Promyelocytes/100 WBC (Bld) 2 % High 0-[address] [facility] Erythrocyte morphology asses smentOrdered By: Shannan Waldrop on 07-27-2024 RBC morphology finding Nom (Bld) NORM C+C NORMAL NORM C&C [facility] Myelocyte %Ordered By: Ines Waldrop on 07-27-2024 Myelocytes/100 WBC (Bld) 6 % High 0-[address] [facility] Oncology Visit Reporton 07-18 Oncology Visit Report Normal [facility] Promyelocytes/100 WBC (Bld)O rdered By: Shannan Bullus on 07-27-2024 Promyelocytes % 2 % High 0-[address] [facility] RBC morphology finding Nom ( Bld)Ordered By: Shannan Waldrop on 07-27-2024 Red Blood Cell Morphology NORM C+C NORMAL NORM C&C [facility] Venous Duplex US - Jose Extre mon 07-27-2024 Venous Duplex US - Jose Extrem Normal [facility] CBC W/Diff, Automatedon Absolute Lymph 0.79 X10 3/uL Low 0.83-4.[address] [facility] Comment on above: Performed By: #### L 100.0100 ####[facility] [address] [place], [place], [id number] Absolute Neut 3.0 X10 3/uL Normal 2.0-7.[address] [facility] Comment on above: Performed By: #### L 100.0100 ####[facility] [address], [address] Basophils/100 WBC (Bld) 0.4 % Normal 0-1 [facility] Comment on above: Performed By: #### L 100.0100 ####[facility] [address] [place], [address] Eosinophils/100 WBC (Bld) 1.3 % Normal 0-[address] [facility] Comment on above: Performed By: #### L 100.0100 ####[facility] [address] [place], [address] Erythrocyte distribution width (RBC) [Ratio] 17.2 % High 11.6-14.[address] [facility] Comment on above: Performed By: #### L 100.0100 ####[facility] [address] [place], [address] Hematocrit (Bld) [Volume fraction] 32.5 % Low 37-[address] [facility] Comment on above: Performed By: #### L 100.0100 ####[facility] [address] [place], [address] Hemoglobin (Bld) [Mass/Vol] 10.2 g/dL Low 12.0-15.[address] [facility] Comment on above: Performed By: #### L 100.0100 ####[facility] [address] [place], [address] IG% 0.200 Normal 0.0-0.[address] [facility] Comment on above: Result Comment: IG% - Immature Granulocytes (promyelocytes, myelocytes andmetamyelocytes) > 1% indicates that a LEFT SHIFT is Present. Performed By: #### L 100.0100 ####[facility] [address] [place], [address] Lymphocytes/100 WBC (Bld) 17.0 % Low 19-[address] [facility] Comment on above: Performed By: #### L 100.0100 ####[facility] [address] [place], [address] MCH (RBC) [Entitic mass] 29.1 pg Normal 27.0-32.[address] [facility] Comment on above: Performed By: #### L 100.0100 ####[facility] [address] [place], [address] MCHC (RBC) [Mass/Vol] 31.4 g/dL Low 32-36 [facility] Comment on above: Performed By: #### L 100.0100 ####[facility] [address] [place], [address] MCV (RBC) [Entitic vol] 92.6 fL Normal 81-99 [facility] Comment on above: Performed By: #### L 100.0100 ####[facility] [address] [place], [address] Monocytes/100 WBC (Bld) 15.7 % High 0-10 [facility] Comment on above: Performed By: #### L 100.0100 ####[facility] [address] [place], [address] Neutrophils/100 WBC (Bld) 65.4 % Normal 47-[address] [facility] Comment on above: Performed By: #### L 100.0100 ####[facility] [address] [place], [address] Nucleated RBC (Bld) [#/Vol] 0 10*3/uL Normal 0-[address] [facility] Comment on above: Performed By: #### L 100.0100 ####[facility] [address] [place], [address] Platelet mean volume (Bld) [Entitic vol] 8.7 fL Normal 6.2-12.[address] [facility] Comment on above: Performed By: #### L 100.0100 ####[facility] [address] [place], [address] Platelets (Bld) [#/Vol] 311 10*3/uL Normal 150-[address] [facility] Comment on above: Performed By: #### L 100.0100 ####[facility] [address] [place], [address] RBC (Bld) [#/Vol] 3.51 10*6/uL Low 4.2-5.4 [facility] Comment on above: Performed By: #### L 100.0100 ####[facility] [address] [place], [address] RDW SD 57.8 fl High 35.1-43.[address] [facility] Comment on above: Performed By: #### L 100.0100 ####[facility] [address] [place], [address] WBC (Bld) [#/Vol] 4.7 10*3/uL Normal 4.4-11.0 [facility] Comment on above: Performed By: #### L 100.0100 ####[facility] [address] [place], [address] Absolute Neut Normal 2.0-7.[address] [facility] Comment on above: Result Comment: DUPL ICATED TESTS Performed By: #### L 100.0100 ####[facility] [address] [place], [address] HCT Normal 37-[address] [facility] Comment on above: Result Comment: DUPL ICATED TESTS Performed By: #### L 100.0100 ####[facility] [address] [place], [address] HGB Normal 12.0-15.[address] [facility] Comment on above: Result Comment: DUPL ICATED TESTS Performed By: #### L 100.0100 ####[facility] [address] [place], [address] MCH Normal 27.0-32.[address] [facility] Comment on above: Result Comment: DUPL ICATED TESTS Performed By: #### L 100.0100 ####[facility] [address] [place], [address] MCHC Normal 32-[address] [facility] Comment on above: Result Comment: DUPL ICATED TESTS Performed By: #### L 100.0100 ####[facility] [address] [place], [address] MCV Normal 81-[address] [facility] Comment on above: Result Comment: DUPL ICATED TESTS Performed By: #### L 100.0100 ####[facility] [address] [place], [address] NEUT% Normal 47-[address] [facility] Comment on above: Result Comment: DUPL ICATED TESTS Performed By: #### L 100.0100 ####[facility] [address] [place], [address] PLT Normal 150-[address] [facility] Comment on above: Result Comment: DUPL ICATED TESTS Performed By: #### L 100.0100 ####[facility] [address] [place], [address] RBC Normal 4.2-5.[address] [facility] Comment on above: Result Comment: DUPL ICATED TESTS Performed By: #### L 100.0100 ####[facility] [address] [place], [address] RDW CV Normal 11.6-14.[address] [facility] Comment on above: Result Comment: DUPL ICATED TESTS Performed By: #### L 100.0100 ####[facility] [address] [place], [address] RDW SD Normal 35.1-43.[address] [facility] Comment on above: Result Comment: DUPL ICATED TESTS Performed By: #### L 100.0100 ####[facility] [address] [place], [address] WBC Normal 4.4-11.[address] [facility] Comment on above: Result Comment: DUPL ICATED TESTS Performed By: #### L 100.0100 ####[facility] [address] [place], [address] Oncology Visit Reporton 120 Oncology Visit Report Normal [facility] Blood schistocyte detection by light microscopyOrdered By: Shannan Waldrop on 07-12-2024 Schistocytes RARE Normal [facility] Comment on above: Performed By: #### L 100.0100 ####[facility] [address] [place], [address] Schistocytes LM Ql (Bld) RARE [facility] CBC W/Diff, Automatedon 06-19 Anisocytosis Ql (Bld) 1+ Normal [facility] Comment on above: Performed By: #### L 100.0100 ####[facility] [address] [place], [address] OVALOCYTE 2+ Normal [facility] Comment on above: Performed By: #### L 100.0100 ####[facility] [address] [place], [address] POLYCHROMASIA 1+ Normal [facility] Comment on above: Performed By: #### L 100.0100 ####[facility] [address] [place], [address] TEAR DROP 1+ Normal [facility] Comment on above: Performed By: #### L 100.0100 ####[facility] [address] [place], [address] PLT EST ADEQUATE Normal ADEQ [facility] Comment on above: Performed By: #### L 100.0100 ####[facility] [address] [place], [address] SMEAR COMMENT SCANNED Normal [facility] Comment on above: Performed By: #### L 100.0100 ####[facility] [address] [place], [address] Macrocytes detectionOrdered By: Shannan Waldrop on 07-12-2024 Macrocytosis 1+ Normal [facility] Comment on above: Performed By: #### L 100.0100 ####[facility] [address] [place], [address] Macrocytes Ql (Bld) 1+ [facility] Oncology Visit Reporton 06-19 Oncology Visit Report Normal [facility] CBC W/Diff, Automatedon 06-18 Absolute Lymph 0.77 X10 3/uL Low 0.83-4.[address] [facility] Comment on above: Performed By: #### L 501.5200, L100.0100, L500.4050 ####[facility] [address] [place], [address] Absolute Neut 4.1 X10 3/uL Normal 2.0-7.[address] [facility] Comment on above: Performed By: #### L 501.5200, L100.0100, L500.4050 ####[facility] [address] [place], [address] Basophils/100 WBC (Bld) 0.7 % Normal 0-1 [facility] Comment on above: Performed By: #### L 501.5200, L100.0100, L500.4050 ####[facility] [address] [place], [address] Eosinophils/100 WBC (Bld) 0.9 % Normal 0-[address] [facility] Comment on above: Performed By: #### L 501.5200, L100.0100, L500.4050 ####[facility] [address] [place], [address] Erythrocyte distribution width (RBC) [Ratio] 17.0 % High 11.6-14.[address] [facility] Comment on above: Performed By: #### L 501.5200, L100.0100, L500.4050 ####[facility] [address] [place], [address] Hematocrit (Bld) [Volume fraction] 35.5 % Low 37-[address] [facility] Comment on above: Performed By: #### L 501.5200, L100.0100, L500.4050 ####[facility] [address] [place], [address] Hemoglobin (Bld) [Mass/Vol] 11.2 g/dL Low 12.0-15.[address] [facility] Comment on above: Performed By: #### L 501.5200, L100.0100, L500.4050 ####[facility] [address] [place], [address] IG% 0.500 Normal 0.0-0.[address] [facility] Comment on above: Result Comment: IG% - Immature Granulocytes (promyelocytes, myelocytes andmetamyelocytes) > 1% indicates that a LEFT SHIFT is Present. Performed By: #### L 501.5200, L100.0100, L500.4050 ####[facility] [address] [place], [address] Lymphocytes/100 WBC (Bld) 13.4 % Low 19-[address] [facility] Comment on above: Performed By: #### L 501.5200, L100.0100, L500.4050 ####[facility] [address] [place], [address] MCH (RBC) [Entitic mass] 29.1 pg Normal 27.0-32.[address] [facility] Comment on above: Performed By: #### L 501.5200, L100.0100, L500.4050 ####[facility] [address] [place], [address] MCHC (RBC) [Mass/Vol] 31.5 g/dL Low 32-36 [facility] Comment on above: Performed By: #### L 501.5200, L100.0100, L500.4050 ####[facility] [address] [place], [address] MCV (RBC) [Entitic vol] 92.2 fL Normal 81-99 [facility] Comment on above: Performed By: #### L 501.5200, L100.0100, L500.4050 ####[facility] [address] [place], [address] Monocytes/100 WBC (Bld) 13.6 % High 0-10 [facility] Comment on above: Performed By: #### L 501.5200, L100.0100, L500.4050 ####[facility] [address] [place], [address] Neutrophils/100 WBC (Bld) 70.9 % High 47-[address] [facility] Comment on above: Performed By: #### L 501.5200, L100.0100, L500.4050 ####[facility] [address] [place], [address] Nucleated RBC (Bld) [#/Vol] 0 10*3/uL Normal 0-[address] [facility] Comment on above: Performed By: #### L 501.5200, L100.0100, L500.4050 ####[facility] [address] [place], [address] Platelet mean volume (Bld) [Entitic vol] 8.4 fL Normal 6.2-12.[address] [facility] Comment on above: Performed By: #### L 501.5200, L100.0100, L500.4050 ####[facility] [address] [place], [address] Platelets (Bld) [#/Vol] 268 10*3/uL Normal 150-[address] [facility] Comment on above: Performed By: #### L 501.5200, L100.0100, L500.4050 ####[facility] [address] [place], [address] RBC (Bld) [#/Vol] 3.85 10*6/uL Low 4.2-5.4 [facility] Comment on above: Performed By: #### L 501.5200, L100.0100, L500.4050 ####[facility] [address] [place], [address] RDW SD 56.9 fl High 35.1-43.[address] [facility] Comment on above: Performed By: #### L 501.5200, L100.0100, L500.4050 ####[facility] [address] [place], [address] WBC (Bld) [#/Vol] 5.8 10*3/uL Normal 4.4-11.0 [facility] Comment on above: Performed By: #### L 501.5200, L100.0100, L500.4050 ####[facility] [address] [place], [address] Comprehensive Metabolic Prof [facility] 07-05-2024 Albumin [Mass/Vol] 3.5 g/dL Normal 3.2-5.0 [facility] Comment on above: Performed By: #### L 501.5200, L100.0100, L500.4050 ####[facility] [address] [place], [address] Albumin/Globulin [Mass ratio] 0.9 {ratio} Normal 0.9-2.[address] [facility] Comment on above: Performed By: #### L 501.5200, L100.0100, L500.4050 ####[facility] [address] [place], [address] ALK P 73 U/L Normal 45-[address] [facility] Comment on above: Performed By: #### L 501.5200, L100.0100, L500.4050 ####[facility] [address] [place], [address] ALT [Catalytic activity/Vol] 16 U/L Normal 13-[address] [facility] Comment on above: Performed By: #### L 501.5200, L100.0100, L500.4050 ####[facility] [address] [place], [address] AST [Catalytic activity/Vol] 16 U/L Normal 15-[address] [facility] Comment on above: Performed By: #### L 501.5200, L100.0100, L500.4050 ####[facility] [address] [place], [address] Bilirubin [Mass/Vol] 0.50 mg/dL Normal 0.20-1.00 [facility] Comment on above: Result Comment: For patients on eltrombopag therapy, use of Dimension Bryant TBIL is not recommended. Performed By: #### L 501.5200, L100.0100, L500.4050 ####[facility] [address] [place], [address] BUN/CRE 12.3 RATIO Normal 10-[address] [facility] Comment on above: Performed By: #### L 501.5200, L100.0100, L500.4050 ####[facility] [address] [place], [address] CA,Total 9.2 mg/dL Normal 8.5-10.[address] [facility] Comment on above: Performed By: #### L 501.5200, L100.0100, L500.4050 ####[facility] [address] [place], [address] Chloride [Moles/Vol] 104 mmol/L Normal 98-107 [facility] Comment on above: Performed By: #### L 501.5200, L100.0100, L500.4050 ####[facility] [facility] [address] [place], [address] CO2 [Moles/Vol] 24.0 mmol/L Normal 21.0-32.[address] [facility] Comment on above: Performed By: #### L [id number], L100.0100, [id number] ####[facility] [address] [place], [address] Creatinine [Mass/Vol] 0.82 mg/dL Normal 0.55-1.02 [facility] Comment on above: Result Comment: The validity of the calculated GFR GFRAA in patients over70 years has not been determined. Clinical correlation isessential. Performed By: #### L [id number], L100.0100, [id number] ####[facility] [address] [place], [address] ECRCL 64.69 ml/min Normal [facility] Comment on above: Performed By: #### L [id number], L100.0100, [id number] ####[facility] [address] [place], [address] EST GFR - AA 89 mL/min Normal >[address] [facility] Comment on above: Result Comment: Afri can Martiniquais GFR Calc Performed By: #### L [id number], L100.0100, [id number] ####[facility] [address] [place], [address] GAP 12 Normal 5-[address] [facility] Comment on above: Performed By: #### L [id number], L100.0100, [id number] ####[facility] [address] [place], [address] GFR/1.73 sq M.predicted among non-blacks MDRD (S/P/Bld) [Vol rate/Area] 74 mL/min/{1.73_m2} Normal >60 [facility] Comment on above: Result Comment: Non- GFR Calc Performed By: #### L [id number], L100.0100, [id number] ####[facility] [address] [place], [address] Globulin (S) [Mass/Vol] 3.7 g/dL Normal 2.2-4.2 [facility] Comment on above: Performed By: #### L [id number], L100.0100, [id number] ####[facility] [address] [place], [address] Glucose [Mass/Vol] 173 mg/dL High 74-106 [facility] Comment on above: Result Comment: Fast ing Glucose result greater than or equal to 126 mg/dLsuggests DIABETES MELLITUS per A.D.A. criteria. Performed By: #### L [id number], L100.0100, [id number] ####[facility] [address] [place], [address] Potassium [Moles/Vol] 4.2 mmol/L Normal 3.5-5.1 [facility] Comment on above: Performed By: #### L 501.5200, L100.0100, [id number] ####[facility] [address] [place], [address] Sodium [Moles/Vol] 140 mmol/L Normal 136-145 [facility] Comment on above: Performed By: #### L [id number], L100.0100, [id number] ####[facility] [address] [place], [address] T PROT 7.2 g/dL Normal 6.4-8.[address] [facility] Comment on above: Performed By: #### L [id number], L100.0100, [id number] ####[facility] [address] [place], [address] Urea nitrogen [Mass/Vol] 10 mg/dL Normal 03-[address] [facility] Comment on above: Performed By: #### L [id number], L100.0100, [id number] ####[facility] [address] [place], [address] Magnesiumon 07-05-2024 Magnesium [Mass/Vol] 1.4 mg/dL Low 1.6-2.6 [facility] Comment on above: Performed By: #### L [id number], L100.0100, [id number] ####[facility] [address] [place], [address] Oncology Visit Reporton 06-18 Oncology Visit Report Normal [facility] [id number] DOrdered By: Nataly Christianson on 06-28-2024 Vitamin D 25-Hydroxy 92.5 ng/mL [facility] Comment on above: Vitamin D 25(OH) Sta tus Range Deficiency <20 ng/mL (50nmol/L) Insufficiency 20 - 30 ng/mL (50 - 75 nmol/L) Sufficiency 30 - 100 ng/mL (75 - 250 nmol/L) Toxicity >100 ng/mL (>250 nmol/L) Hemoglobin A1c percentageOrd ered By: Sharif Christianson on 06-28-2024 HbA1c (Bld) [Mass fraction] 7.1 % High 3.8-5.[address] [facility] Comment on above: Normal < 5.7 % Predi abetic 5.7 - 6.4 % Diabetic >or= 6.5 % Please note range changes. High density lipoprotein (HD L) measurementOrdered By: Sharif Christianson on 06-28-2024 Cholesterol in HDL [Mass/Vol] 54 mg/dL >[address] [facility] Comment on above: The drugs N-Acetylcy steine and Metamizole may falsely depress this assay. Reference Range HDL <40 mg/dL Low HDL Cholesterol HDL >or= 60 mg/dL High HDL Cholesterol High density lipoprotein (HDL) measurement 54 mg/dL >[address] [facility] Low density lipoprotein (LDL ) cholesterol measurementOrdered By: Sharif Christianson on 06-28-2024 Cholesterol in LDL [Mass/Vol] 26 mg/dL 0-[address] [facility] Low density lipoprotein (LDL) cholesterol measurement 26 mg/dL 0-[address] [facility] Serum or plasma cholesterol measurement (mass/volume)Ordered By: Sharif Christinason on 06-28-2024 Cholesterol [Mass/Vol] 108 mg/dL <200 [facility] Comment on above: <200 mg/dL Desirable 200-240 mg/dL Borderline >240 mg/dL High Risk Triglycerides measurementOrd ered By: Sharif Christianson on 06-28-2024 Triglyceride [Mass/Vol] 142 mg/dL <199 [facility] Comment on above: The drugs N-Acetylcy steine and Metamizole may falsely depress this assay.Serum Triglycerides Reference Interval Normal <150 mg/dL Borderline high 150 - 199 mg/dL High 200 - 499 mg/dL Very High > or = 500 mg/dL Very low density lipoprotein (VLDL) cholesterol measurementOrdered By: Sharif Christianson on 06-28-2024 Very low density lipoprotein (VLDL) cholesterol measurement 28 mg/dL 5-[address] [facility] VLDL Cholesterol 28 mg/dL 5-[address] [facility] Absolute lymphocyte countOrd ered By: Shannan Waldrop on 12-02-2023 Lymphocytes Auto (Unsp spec) [#/Vol] 0.74 10*3/uL 0.83-4.[address] [facility] Automated lymphocyte count a s percentage of total leukocytesOrdered By: Shannan Waldrop on 12-02-2023 Lymphocytes/100 WBC Auto (Unsp spec) 14.9 % 19-[address] [facility] Basophil percentageOrdered B y: Shannan Waldrop on 12-02-2023 Basophils/100 WBC (Bld) 0.6 % 0-1 [facility] Bilirubin [Mass/Vol] 0.50 mg/dL 0.20-1.00 [facility] Comment on above: For patients on eltr ombopag therapy, use of Dimension Bryant TBIL is not recommended. Chloride [Moles/Vol] 106 mmol/L 98-107 [facility] Eosinophils/100 WBC (Bld) 2.8 % 0-[address] [facility] Glucose [Mass/Vol] 131 mg/dL 74-106 [facility] Comment on above: Fasting Glucose resu lt greater than or equal to 126 mg/dL suggests DIABETES MELLITUS per A.D.A. criteria. Hemoglobin (Bld) [Mass/Vol] 10.2 g/dL 12.0-15.[address] [facility] Monocytes/100 WBC (Bld) 9.9 % 0-10 [facility] Neutrophils (Bld) [#/Vol] 3.6 10*3/uL 2.0-7.[address] [facility] Neutrophils/100 WBC (Bld) 71.4 % 47-[address] [facility] Potassium [Moles/Vol] 4.3 mmol/L 3.5-5.1 [facility] Protein [Mass/Vol] 7.2 g/dL 6.4-8.2 [facility] Sodium [Moles/Vol] 137 mmol/L 136-145 [facility] WBC (Bld) [#/Vol] 5.0 10*3/uL 4.4-11.0 [facility] Determination of erythrocyte mean corpuscular volume (MCV)Ordered By: Shannan Waldrop on 12-02-2023 MCV (RBC) [Entitic vol] 99.1 fL 81-99 [facility] Erythrocyte distribution wid th ratioOrdered By: Shannan Waldrop on 12-02-2023 Erythrocyte distribution width (RBC) [Ratio] 16.8 % 11.6-14.[address] [facility] Erythrocyte distribution wid th standard deviationOrdered By: Shannan Waldrop on 12-02-2023 Erythrocyte distribution width (RBC) [Entitic vol] 61.2 fL 35.1-43.9 [facility] Hematocrit Auto (Bld) [Volum e fraction]Ordered By: Shannan Waldrop on 12-02-2023 Hematocrit (Bld) [Volume fraction] 33.6 % 37-[address] [facility] Immature granulocytes/100 WB C Auto (Bld)Ordered By: Shannan Waldrop on 12-02-2023 Immature granulocytes/100 WBC (Bld) 0.400 % 0.0-0.[address] [facility] Comment on above: IG% - Immature Granu locytes (promyelocytes, myelocytes and metamyelocytes) > 1% indicates that a LEFT SHIFT is Present. Laboratory - Chemistry and C hemistry - challengeOrdered By: Shannan Waldrop on 12-02-2023 Albumin/Globulin [Mass ratio] 0.9 {ratio} 0.9-2.[address] [facility] ALP [Catalytic activity/Vol] 64 U/L 45-[address] [facility] ALT [Catalytic activity/Vol] 14 U/L 13-[address] [facility] CO2 [Moles/Vol] 25.0 mmol/L 21.0-32.[address] [facility] Globulin (S) [Mass/Vol] 3.8 g/dL 2.2-4.2 [facility] Urea nitrogen/Creatinine [Mass ratio] 24.1 mg/mg 10-[address] [facility] Laboratory - Hematology and Cell countsOrdered By: Shannan Waldrop on 12-02-2023 MCH (RBC) [Entitic mass] 30.1 pg 27.0-32.[address] [facility] MCHC (RBC) [Mass/Vol] 30.4 g/dL 32-36 [facility] Nucleated RBC/100 WBC (Bld) [Ratio] 0 % 0-[address] [facility] Platelet mean volume (Bld) [Entitic vol] 8.8 fL 6.2-12.[address] [facility] Platelets (Bld) [#/Vol] 322 10*3/uL 150-[address] [facility] No Panel InformationOrdered By: Shannan Waldrop on 12-02-2023 Estimated Creatinine Clearance Calc 68.25 ml/min [facility] Estimated GFR (MDRD) Amer 106 mL/min >[address] [facility] Comment on above: GFR Calc Estimated GFR (MDRD) Non-Af Amer 87 mL/min >[address] [facility] Comment on above: Non- GFR Calc RBC Auto (Bld) [#/Vol]Ordere d By: Shannan Waldrop on 12-02-2023 RBC (Bld) [#/Vol] 3.39 10*6/uL 4.2-5.4 [facility] Serum or plasma calcium joaquin urement (mass/volume)Ordered By: Shannan Waldrop on 12-02-2023 Calcium [Mass/Vol] 9.0 mg/dL 8.5-10.1 [facility] Serum or plasma creatinine m easurement (mass/volume)Ordered By: Shannan Waldrop on 12-02-2023 Creatinine [Mass/Vol] 0.71 mg/dL 0.55-1.02 [facility] Comment on above: The validity of the calculated GFR & GFRAA in patients over 70 years has not been determined. Clinical correlation is essential. Serum or plasma urea nitroge n measurement (mass/volume)Ordered By: Shannan Waldrop on 12-02-2023 Urea nitrogen [Mass/Vol] 17 mg/dL 7-[address] [facility] Thin prep Papanicolaou smear with manual screeningOrdered By: Shannan Waldrop on 12-02-2023 Thin prep Papanicolaou smear with manual screening 3.4 g/dL 3.2-5.[address] [facility] Thin prep Papanicolaou smear with manual screening 11 U/L 15-[address] [facility] Thin prep Papanicolaou smear with manual screening 6 5-[address] [facility] Absolute lymphocyte countOrd ered By: Sharif Christianson on 11-28-2023 Lymphocytes Auto (Unsp spec) [#/Vol] 0.78 10*3/uL 0.83-4.[address] [facility] Automated lymphocyte count a s percentage of total leukocytesOrdered By: Sharif Christianson on 11-28-2023 Lymphocytes/100 WBC Auto (Unsp spec) 13.6 % 19-[address] [facility] Basophil percentageOrdered B y: Sharif Christianson on 11-28-2023 Basophils/100 WBC (Bld) 0.7 % 0-1 [facility] Bilirubin [Mass/Vol] 0.30 mg/dL 0.20-1.00 [facility] Comment on above: For patients on eltr ombopag therapy, use of Dimension Bryant TBIL is not recommended. Chloride [Moles/Vol] 104 mmol/L 98-107 [facility] Eosinophils/100 WBC (Bld) 2.1 % 0-[address] [facility] Glucose [Mass/Vol] 160 mg/dL 74-106 [facility] Comment on above: Fasting Glucose resu lt greater than or equal to 126 mg/dL suggests DIABETES MELLITUS per A.D.A. criteria. Hemoglobin (Bld) [Mass/Vol] 10.0 g/dL 12.0-15.[address] [facility] Monocytes/100 WBC (Bld) 9.6 % 0-10 [facility] Neutrophils (Bld) [#/Vol] 4.2 10*3/uL 2.0-7.[address] [facility] Neutrophils/100 WBC (Bld) 73.5 % 47-[address] [facility] Potassium [Moles/Vol] 4.1 mmol/L 3.5-5.1 [facility] Protein [Mass/Vol] 7.4 g/dL 6.4-8.2 [facility] Sodium [Moles/Vol] 136 mmol/L 136-145 [facility] WBC (Bld) [#/Vol] 5.7 10*3/uL 4.4-11.0 [facility] Determination of erythrocyte mean corpuscular volume (MCV)Ordered By: Sharif Christianson on 11-28-2023 MCV (RBC) [Entitic vol] 100.9 fL 81-99 [facility] Erythrocyte distribution wid th ratioOrdered By: Sharif Christianson on 11-28-2023 Erythrocyte distribution width (RBC) [Ratio] 16.8 % 11.6-14.[address] [facility] Erythrocyte distribution wid th standard deviationOrdered By: Sharif Christianson on 11-28-2023 Erythrocyte distribution width (RBC) [Entitic vol] 62.0 fL 35.1-43.9 [facility] Hematocrit Auto (Bld) [Volum e fraction]Ordered By: Sharif Christianson on 11-28-2023 Hematocrit (Bld) [Volume fraction] 33.6 % 37-[address] [facility] Immature granulocytes/100 WB C Auto (Bld)Ordered By: Sharif Christianson on 11-28-2023 Immature granulocytes/100 WBC (Bld) 0.500 % 0.0-0.[address] [facility] Comment on above: IG% - Immature Granu locytes (promyelocytes, myelocytes and metamyelocytes) > 1% indicates that a LEFT SHIFT is Present. Laboratory - Chemistry and C hemistry - challengeOrdered By: Sharif Christianson on 11-28-2023 Albumin/Globulin [Mass ratio] 0.8 {ratio} 0.9-2.[address] [facility] ALP [Catalytic activity/Vol] 63 U/L 45-[address] [facility] ALT [Catalytic activity/Vol] 20 U/L 13-[address] [facility] CO2 [Moles/Vol] 26.0 mmol/L 21.0-32.[address] [facility] Globulin (S) [Mass/Vol] 4.2 g/dL 2.2-4.2 [facility] Urea nitrogen/Creatinine [Mass ratio] 13.5 mg/mg 10-[address] [facility] Laboratory - Hematology and Cell countsOrdered By: Sharif Christianson on 11-28-2023 MCH (RBC) [Entitic mass] 30.0 pg 27.0-32.[address] [facility] MCHC (RBC) [Mass/Vol] 29.8 g/dL 32-36 [facility] Nucleated RBC/100 WBC (Bld) [Ratio] 0 % 0-[address] [facility] Platelet mean volume (Bld) [Entitic vol] 9.8 fL 6.2-12.[address] [facility] Platelets (Bld) [#/Vol] 322 10*3/uL 150-[address] [facility] No Panel InformationOrdered By: Sharif Christianson on 11-28-2023 Estimated GFR (MDRD) Amer 81 mL/min >[address] [facility] Comment on above: GFR Calc Estimated GFR (MDRD) Non-Af Amer 67 mL/min >[address] [facility] Comment on above: Non- GFR Calc RBC Auto (Bld) [#/Vol]Ordere d By: Sharif Christianson on 11-28-2023 RBC (Bld) [#/Vol] 3.33 10*6/uL 4.2-5.4 [facility] Serum or plasma calcium joaquin urement (mass/volume)Ordered By: Sharif Christianson on 11-28-2023 Calcium [Mass/Vol] 9.3 mg/dL 8.5-10.1 [facility] Serum or plasma creatinine m easurement (mass/volume)Ordered By: Sharif Christianson on 11-28-2023 Creatinine [Mass/Vol] 0.89 mg/dL 0.55-1.02 [facility] Comment on above: The validity of the calculated GFR & GFRAA in patients over 70 years has not been determined. Clinical correlation is essential. Serum or plasma urea nitroge n measurement (mass/volume)Ordered By: Sharif Christianson on 11-28-2023 Urea nitrogen [Mass/Vol] 12 mg/dL 7-[address] [facility] Thin prep Papanicolaou smear with manual screeningOrdered By: Sharif Christianson on 11-28-2023 Thin prep Papanicolaou smear with manual screening 3.2 g/dL 3.2-5.[address] [facility] Thin prep Papanicolaou smear with manual screening 18 U/L 15-[address] [facility] Thin prep Papanicolaou smear with manual screening 6 5-[address] [facility] Laboratory - Chemistry and C hemistry - challengeOrdered By: Shannan Waldrop on 10-30-2023 Magnesium [Mass/Vol] 1.9 mg/dL 1.6-2.6 [facility] Basophil percentageOrdered B y: Shannan Waldrop on 10-06-2023 Basophil percentage 4.3 mg/dL 2.5-4.9 [facility] Laboratory - Chemistry and C hemistry - challengeOrdered By: Shannan Waldrop on 10-06-2023 Cobalamin (Vitamin B12) [Mass/Vol] 187 pg/mL 211-[address] [facility] Laboratory - Hematology and Cell countsOrdered By: Shannan Waldrop on 10-06-2023 Anisocytosis Ql (Bld) 1+ [facility] Basophil percentageOrdered B y: Sharif Christianson on 09-25-2023 Basophil percentage >100 SEEN /hpf 0-5 [facility] Bilirubin Test strip Ql (U)O rdered By: Sharif Christianson on 09-25-2023 Bilirubin Ql (U) Negative Negative [facility] Ketones Test strip Ql (U)Ord ered By: Sharif Christianson on 09-25-2023 Ketones Ql (U) Negative Negative [facility] Mucus LM Ql (Urine sed)Order ed By: Sharif Christianson on 09-25-2023 Mucus Ql (Urine sed) 0 SEEN /hpf [facility] Nitrite Test strip Ql (U)Ord ered By: Sharif Christianson on 09-25-2023 Nitrite Ql (U) Positive Negative [facility] No Panel InformationOrdered By: Sharif Christianson on 09-25-2023 Urine Microalbumin/Creatinine Ratio 73.1 mg/g CRE <[address] [facility] Urine RBC 0 SEEN /hpf 0-[address] [facility] Protein Test strip Ql (U)Ord ered By: Sharif Christianson on 09-25-2023 Protein Ql (U) 30 mg/dl Negative [facility] Squamous epithelial cells de tection in urine sediment by light microscopyOrdered By: Sharif Christianson on 09-25-2023 Epithelial cells.squamous LM Ql (Urine sed) 0 SEEN /hpf 5-[address] [facility] Thin prep Papanicolaou smear with manual screeningOrdered By: Sharif Christianson on 09-25-2023 Thin prep Papanicolaou smear with manual screening 128.0 mg/L NO RANGE EST. [facility] Urine blood detectionOrdered By: Sharif Christianson on 09-25-2023 RBC Ql (U) 25 /ul Negative [facility] Urine clarityOrdered By: Link Christianson on 09-25-2023 Clarity (U) Cloudy Clear [facility] Urine color determinationOrd ered By: Sharif Christianson on 09-25-2023 Color (U) Yellow Yellow [facility] Urine creatinine measurement (mass/volume)Ordered By: Sharif Christianson on 09-25-2023 Creatinine (U) [Mass/Vol] 175.00 mg/dL NO RANGE EST. [facility] Urine glucose detectionOrder ed By: Sharif Christianson on 09-25-2023 Glucose Ql (U) Normal mg/dl Normal [facility] Urine leukocyte esterase det ection by dipstickOrdered By: Sharif Christianson on 09-25-2023 Leukocyte esterase Test strip Ql (U) 500 /ul Negative [facility] Urine pHOrdered By: Sharif brasher on 09-25-2023 pH (U) 5.0 [pH] 5.0 - 8.[address] [facility] Urine sediment bacteria coun t by microscopy (number/high power field)Ordered By: Sharif Christianson on 09-25-2023 Bacteria LM.HPF (Urine sed) [#/Area] 3 /[HPF] None Seen [facility] Urine specific gravity measu rementOrdered By: Sharif Christianson on 09-25-2023 Specific gravity (U) [Rel density] 1.025 1.002-1.[address] [facility] Urine urobilinogen measureme ntOrdered By: Sharif Christianson on 09-25-2023 Urobilinogen Ql (U) Normal mg/dl Normal [facility] Absolute lymphocyte countOrd ered By: Sharif Christianson on 09-24-2023 Lymphocytes Auto (Unsp spec) [#/Vol] 0.43 10*3/uL 0.83-4.[address] [facility] Automated lymphocyte count a s percentage of total leukocytesOrdered By: Sharif Christianson on 09-24-2023 Lymphocytes/100 WBC Auto (Unsp spec) 10.3 % 19-[address] [facility] Basophil percentageOrdered B y: Sharif Christianson on 09-24-2023 Basophils/100 WBC (Bld) 0.7 % 0-1 [facility] Bilirubin [Mass/Vol] 0.30 mg/dL 0.20-1.00 [facility] Comment on above: For patients on eltr ombopag therapy, use of Dimension Bryant TBIL is not recommended. Chloride [Moles/Vol] 109 mmol/L 98-107 [facility] Cholesterol [Mass/Vol] 102 mg/dL <200 [facility] Comment on above: <200 mg/dL Desirable 200-240 mg/dL Borderline >240 mg/dL High Risk Eosinophils/100 WBC (Bld) 1.2 % 0-[address] [facility] Glucose [Mass/Vol] 148 mg/dL 74-106 [facility] Comment on above: Fasting Glucose resu lt greater than or equal to 126 mg/dL suggests DIABETES MELLITUS per A.D.A. criteria. Hemoglobin (Bld) [Mass/Vol] 10.3 g/dL 12.0-15.[address] [facility] Monocytes/100 WBC (Bld) 13.7 % 0-10 [facility] Neutrophils (Bld) [#/Vol] 3.0 10*3/uL 2.0-7.[address] [facility] Neutrophils/100 WBC (Bld) 73.1 % 47-[address] [facility] Potassium [Moles/Vol] 4.2 mmol/L 3.5-5.1 [facility] Protein [Mass/Vol] 7.1 g/dL 6.4-8.2 [facility] Sodium [Moles/Vol] 135 mmol/L 136-145 [facility] Triglyceride [Mass/Vol] 194 mg/dL <199 [facility] Comment on above: The drugs N-Acetylcy steine and Metamizole may falsely depress this assay.Serum Triglycerides Reference Interval Normal <150 mg/dL Borderline high 150 - 199 mg/dL High 200 - 499 mg/dL Very High > or = 500 mg/dL WBC (Bld) [#/Vol] 4.2 10*3/uL 4.4-11.0 [facility] Blood manual differential co mment interpretation (narrative result)Ordered By: Sharif Christianson on 09-24-2023 Manual differential comment Kuldip (Bld) [Interp] SCANNED [facility] Determination of erythrocyte mean corpuscular volume (MCV)Ordered By: Sharif Christianson on 09-24-2023 MCV (RBC) [Entitic vol] 107.4 fL 81-99 [facility] Erythrocyte distribution wid th ratioOrdered By: Sharif Christianson on 09-24-2023 Erythrocyte distribution width (RBC) [Ratio] 20.2 % 11.6-14.[address] [facility] Erythrocyte distribution wid th standard deviationOrdered By: Sharif Christianson on 09-24-2023 Erythrocyte distribution width (RBC) [Entitic vol] 78.7 fL 35.1-43.9 [facility] Hematocrit Auto (Bld) [Volum e fraction]Ordered By: Sharif Christianson on 09-24-2023 Hematocrit (Bld) [Volume fraction] 33.5 % 37-[address] [facility] Immature granulocytes/100 WB C Auto (Bld)Ordered By: Sharif Christianson on 09-24-2023 Immature granulocytes/100 WBC (Bld) 1.000 % 0.0-0.[address] [facility] Comment on above: IG% - Immature Granu locytes (promyelocytes, myelocytes and metamyelocytes) > 1% indicates that a LEFT SHIFT is Present. Laboratory - Chemistry and C hemistry - challengeOrdered By: Sharif Christianson on 09-24-2023 Albumin/Globulin [Mass ratio] 0.9 {ratio} 0.9-2.[address] [facility] ALP [Catalytic activity/Vol] 61 U/L 45-[address] [facility] ALT [Catalytic activity/Vol] 28 U/L 13-[address] [facility] Cholesterol in HDL [Mass/Vol] 46 mg/dL >[address] [facility] Comment on above: The drugs N-Acetylcy steine and Metamizole may falsely depress this assay. Reference Range HDL <40 mg/dL Low HDL Cholesterol HDL >or= 60 mg/dL High HDL Cholesterol Cholesterol in LDL [Mass/Vol] 17 mg/dL 0-[address] [facility] CO2 [Moles/Vol] 23.0 mmol/L 21.0-32.[address] [facility] Globulin (S) [Mass/Vol] 3.7 g/dL 2.2-4.2 [facility] Urea nitrogen/Creatinine [Mass ratio] 15.3 mg/mg 10-[address] [facility] Laboratory - Hematology and Cell countsOrdered By: Sharif Christianson on 09-24-2023 Anisocytosis Ql (Bld) 2+ [facility] MCH (RBC) [Entitic mass] 33.0 pg 27.0-32.[address] [facility] MCHC (RBC) [Mass/Vol] 30.7 g/dL 32-36 [facility] Nucleated RBC/100 WBC (Bld) [Ratio] 0 % 0-[address] [facility] Platelet mean volume (Bld) [Entitic vol] 9.0 fL 6.2-12.[address] [facility] Platelets (Bld) [#/Vol] 244 10*3/uL 150-[address] [facility] Macrocytes detectionOrdered By: Sharif Christianson on 09-24-2023 Macrocytes Ql (Bld) 1+ [facility] No Panel InformationOrdered By: Sharif Christianson on 09-24-2023 Estimated GFR (MDRD) Amer 94 mL/min >[address] [facility] Comment on above: GFR Calc Estimated GFR (MDRD) Non-Af Amer 77 mL/min >[address] [facility] Comment on above: Non- GFR Calc Vitamin D 25-Hydroxy 19.5 ng/mL [facility] Comment on above: Vitamin D 25(OH) Sta tus Range Deficiency <20 ng/mL (50nmol/L) Insufficiency 20 - 30 ng/mL (50 - 75 nmol/L) Sufficiency 30 - 100 ng/mL (75 - 250 nmol/L) Toxicity >100 ng/mL (>250 nmol/L) VLDL Cholesterol 39 mg/dL 5-[address] [facility] RBC Auto (Bld) [#/Vol]Ordere d By: Sharif Christianson on 09-24-2023 RBC (Bld) [#/Vol] 3.12 10*6/uL 4.2-5.4 [facility] Serum or plasma calcium joaquin urement (mass/volume)Ordered By: Sharif Christianson on 09-24-2023 Calcium [Mass/Vol] 8.7 mg/dL 8.5-10.1 [facility] Serum or plasma creatinine m easurement (mass/volume)Ordered By: Sharif Christianson on 09-24-2023 Creatinine [Mass/Vol] 0.78 mg/dL 0.55-1.02 [facility] Comment on above: The validity of the calculated GFR & GFRAA in patients over 70 years has not been determined. Clinical correlation is essential. Serum or plasma urea nitroge n measurement (mass/volume)Ordered By: Sharif Christianson on 09-24-2023 Urea nitrogen [Mass/Vol] 12 mg/dL 7-[address] [facility] Thin prep Papanicolaou smear with manual screeningOrdered By: Sharif Christianson on 09-24-2023 Thin prep Papanicolaou smear with manual screening 1+ [facility] Thin prep Papanicolaou smear with manual screening 3.4 g/dL 3.2-5.[address] [facility] Thin prep Papanicolaou smear with manual screening 12 U/L 15-[address] [facility] Thin prep Papanicolaou smear with manual screening 3 5-[address] [facility] Whole blood hemoglobin A1c/t otal hemoglobin ratio (mass fraction)Ordered By: Sharif Christianson on 09-24-2023 HbA1c (Bld) [Mass fraction] 6.2 % 3.8-5.[address] [facility] Comment on above: Normal < 5.7 % Predi abetic 5.7 - 6.4 % Diabetic >or= 6.5 % Please note range changes. Absolute lymphocyte countOrd ered By: Shannan Waldrop on 09-08-2023 Lymphocytes Auto (Unsp spec) [#/Vol] 0.37 10*3/uL 0.83-4.[address] [facility] Automated lymphocyte count a s percentage of total leukocytesOrdered By: Shannan Waldrop on 09-08-2023 Lymphocytes/100 WBC Auto (Unsp spec) 19.3 % 19-[address] [facility] Basophil percentageOrdered B y: Shannan Waldrop on 09-08-2023 Basophil percentage 2.6 mg/dL 2.5-4.9 [facility] Basophils/100 WBC (Bld) 2.1 % 0-1 [facility] Chloride [Moles/Vol] 105 mmol/L 98-107 [facility] Eosinophils/100 WBC (Bld) 1.6 % 0-[address] [facility] Glucose [Mass/Vol] 189 mg/dL 74-106 [facility] Comment on above: Fasting Glucose resu lt greater than or equal to 126 mg/dL suggests DIABETES MELLITUS per A.D.A. criteria. Hemoglobin (Bld) [Mass/Vol] 9.7 g/dL 12.0-15.[address] [facility] Monocytes/100 WBC (Bld) 12.5 % 0-10 [facility] Neutrophils (Bld) [#/Vol] 1.2 10*3/uL 2.0-7.[address] [facility] Neutrophils/100 WBC (Bld) 62.9 % 47-[address] [facility] Potassium [Moles/Vol] 4.5 mmol/L 3.5-5.1 [facility] Sodium [Moles/Vol] 136 mmol/L 136-145 [facility] WBC (Bld) [#/Vol] 1.9 10*3/uL 4.4-11.0 [facility] Determination of erythrocyte mean corpuscular volume (MCV)Ordered By: Shannan Waldrop on 09-08-2023 MCV (RBC) [Entitic vol] 99.7 fL 81-99 [facility] Erythrocyte distribution wid th ratioOrdered By: Shannan Waldrop on 09-08-2023 Erythrocyte distribution width (RBC) [Ratio] 15.4 % 11.6-14.[address] [facility] Erythrocyte distribution wid th standard deviationOrdered By: [facility] on 09-08-2023 Erythrocyte distribution width (RBC) [Entitic vol] 53.4 fL 35.1-43.9 [facility] Hematocrit Auto (Bld) [Volum e fraction]Ordered By: [facility] on 09-08-2023 Hematocrit (Bld) [Volume fraction] 29.6 % 37-[address] [facility] Immature granulocytes/100 WB C Auto (Bld)Ordered By: [facility] on 09-08-2023 Immature granulocytes/100 WBC (Bld) 1.600 % 0.0-0.[address] [facility] Comment on above: IG% - Immature Granu locytes (promyelocytes, myelocytes and metamyelocytes) > 1% indicates that a LEFT SHIFT is Present. Laboratory - Chemistry and C hemistry - challengeOrdered By: [facility] on 09-08-2023 CO2 [Moles/Vol] 24.0 mmol/L 21.0-32.[address] [facility] Magnesium [Mass/Vol] 1.4 mg/dL 1.6-2.6 [facility] Urea nitrogen/Creatinine [Mass ratio] 18.9 mg/mg 10-[address] [facility] Laboratory - Hematology and Cell countsOrdered By: Shannan Waldrop on 09-08-2023 Anisocytosis Ql (Bld) 3+ [facility] MCH (RBC) [Entitic mass] 32.7 pg 27.0-32.[address] [facility] MCHC (RBC) [Mass/Vol] 32.8 g/dL 32-36 [facility] Nucleated RBC/100 WBC (Bld) [Ratio] 4.2 % 0-[address] [facility] Platelets (Bld) [#/Vol] 238 10*3/uL 150-[address] [facility] No Panel InformationOrdered By: Shannan Waldrop on 09-08-2023 Estimated Creatinine Clearance Calc 64.20 ml/min [facility] Estimated GFR (MDRD) Amer 86 mL/min >[address] [facility] Comment on above: GFR Calc Estimated GFR (MDRD) Non-Af Amer 71 mL/min >[address] [facility] Comment on above: Non- GFR Calc Platelet mean volume Clif-Ec ker (Bld) [Entitic vol]Ordered By: Shannan Waldrop on 09-08-2023 Platelet mean volume (Bld) [Entitic vol] 9.5 fL 6.2-12.[address] [facility] RBC Auto (Bld) [#/Vol]Ordere d By: Shannan Waldrop on 09-08-2023 RBC (Bld) [#/Vol] 2.97 10*6/uL 4.2-5.4 [facility] Review by pathologistOrdered By: Shannan Waldrop on 09-08-2023 Pathologist review Kuldip (Unsp spec) [Interp] Reviewed [facility] Comment on above: Previous reported re sult: Jeanette hough Edited by: CATIE on 09/09/23:1021Leukopenia and neutropenia.Macrocytic anemia.Clinical correlation necessary.Gamal Murillo M.D. 09/09/23 AMENDED REPORT 09/09/23 1021 PATH REV previously reported as: Jeanette hough Serum or plasma calcium joaquin urement (mass/volume)Ordered By: Shannan Waldrop on 09-08-2023 Calcium [Mass/Vol] 9.1 mg/dL 8.5-10.1 [facility] Serum or plasma creatinine m easurement (mass/volume)Ordered By: Shannan Waldrop on 09-08-2023 Creatinine [Mass/Vol] 0.84 mg/dL 0.55-1.02 [facility] Comment on above: The validity of the calculated GFR & GFRAA in patients over 70 years has not been determined. Clinical correlation is essential. Serum or plasma urea nitroge n measurement (mass/volume)Ordered By: Shannan Waldrop on 09-08-2023 Urea nitrogen [Mass/Vol] 16 mg/dL 7-[address] [facility] Thin prep Papanicolaou smear with manual screeningOrdered By: Shannan Waldrop on 09-08-2023 Thin prep Papanicolaou smear with manual screening 7 5-[address] [facility] Basophil percentageOrdered B y: Shannan Waldrop on 09-01-2023 Bilirubin [Mass/Vol] 0.60 mg/dL 0.20-1.00 [facility] Comment on above: For patients on eltr ombopag therapy, use of Dimension Bryant TBIL is not recommended. Protein [Mass/Vol] 6.6 g/dL 6.4-8.2 [facility] Blood manual differential co mment interpretation (narrative result)Ordered By: Shannan Waldrop on 09-01-2023 Manual differential comment Kuldip (Bld) [Interp] SCANNED [facility] Laboratory - Chemistry and C hemistry - challengeOrdered By: Shannan Waldrop on 09-01-2023 ALP [Catalytic activity/Vol] 59 U/L 45-[address] [facility] ALT [Catalytic activity/Vol] 21 U/L 13-[address] [facility] Globulin (S) [Mass/Vol] 3.7 g/dL 2.2-4.2 [facility] Serum or plasma albumin joaquin urement (mass/volume)Ordered By: Shannan Waldrop on 09-01-2023 Albumin [Mass/Vol] 2.9 g/dL 3.2-5.0 [facility] Serum or plasma albumin/glob ulin mass ratioOrdered By: Shannan Waldrop on 09-01-2023 Albumin/Globulin [Mass ratio] 0.8 {ratio} 0.9-2.[address] [facility] Thin prep Papanicolaou smear with manual screeningOrdered By: Shannan Waldrop on 09-01-2023 Thin prep Papanicolaou smear with manual screening 9 U/L 15-[address] [facility] Basophil percentageOrdered B y: Shannan Waldrop on 08-19-2023 Basophil percentage 0-5 SEEN /hpf 0-5 [facility] Basophil percentageOrdered B y: Nic Hall on 08-19-2023 LDH [Catalytic activity/Vol] 160 U/L 84-[address] [facility] Bilirubin Test strip Ql (U)O rdered By: Shannan Waldrop on 08-19-2023 Bilirubin Ql (U) Negative Negative [facility] Culture, urineOrdered By: Adriana Waldrop on 08-19-2023 Bacteria identified Cx Nom (U) Escherichia coli Abnormal [facility] Bacteria identified Cx Nom (U) Enterococcus faecalis Abnormal [facility] Bacteria identified Cx Nom (U) Escherichia coli Abnormal [facility] Bacteria identified Cx Nom (U) Enterococcus faecalis Abnormal [facility] Epithelial cells.squamous LM Ql (Urine sed)Ordered By: Shannan Waldrop on 08-19-2023 Epithelial cells.squamous LM.HPF (Urine sed) [#/Area] 0 /[HPF] 5-[address] [facility] Glucose Ql (U)Ordered By: Adriana Waldrop on 08-19-2023 Glucose (U) [Mass/Vol] 100 mg/dL High Normal [facility] Ketones Test strip Ql (U)Ord ered By: Shannan Waldrop on 08-19-2023 Ketones Ql (U) 5 mg/dl High Negative [facility] Mucus LM Ql (Urine sed)Order ed By: Shannan Waldrop on 08-19-2023 Mucus Ql (Urine sed) 1+ /hpf [facility] Nitrite Test strip Ql (U)Ord ered By: Shannan Waldrop on 08-19-2023 Nitrite Ql (U) Negative Negative [facility] PotassiumOrdered By: Nic Hall on 08-19-2023 Potassium 160 U/L 84-[address] [facility] Protein Test strip Ql (U)Ord ered By: Shannan Waldrop on 08-19-2023 Protein Ql (U) 15 mg/dl High Negative [facility] RBC Ql (U)Ordered By: Lili Waldrop on 08-19-2023 Urine Occult Blood Negative Negative [facility] Urine RBC 0 SEEN /hpf 0-[address] [facility] Squamous epithelial cells de tection in urine sediment by light microscopyOrdered By: Shannan Waldrop on 08-19-2023 Epithelial cells.squamous LM Ql (Urine sed) 0-5 SEEN /hpf 5-[address] [facility] Trichomonas screening testOr dered By: Shannan Waldrop on 08-19-2023 Urine WBC 0-5 SEEN /hpf 0-[address] [facility] Urine blood detectionOrdered By: Shannan Waldrop on 08-19-2023 RBC Ql (U) Negative Negative [facility] RBC Ql (U) 0 SEEN /hpf 0-[address] [facility] Urine clarityOrdered By: Howard Waldrop on 08-19-2023 Clarity (U) Clear Clear [facility] Urine color determinationOrd ered By: Shannan Waldrop on 08-19-2023 Color (U) Yellow Yellow [facility] Urine glucose detectionOrder ed By: Shannan Waldrop on 08-19-2023 Glucose Ql (U) 100 mg/dl High Normal [facility] Urine leukocyte esterase det ection by dipstickOrdered By: Shannan Waldrop on 08-19-2023 Leukocyte esterase Test strip Ql (U) 25 /ul High Negative [facility] Urine pHOrdered By: Shannan Waldrop on 08-19-2023 pH (U) 5.0 [pH] 5.0 - 8.[address] [facility] Urine sediment bacteria coun t by microscopy (number/high power field)Ordered By: Shannan Waldrop on 08-19-2023 Bacteria LM.HPF (Urine sed) [#/Area] 0 /[HPF] None Seen [facility] Urine specific gravity measu rementOrdered By: Shannan Waldrop on 08-19-2023 Specific gravity (U) [Rel density] 1.030 1.002-1.[address] [facility] Urobilinogen Auto test strip Ql (U)Ordered By: Shannan Waldrop on 08-19-2023 Urine Urobilinogen Normal mg/dl Normal [facility] Urobilinogen Ql (U) Normal mg/dl Normal [facility] Iron (Unsp spec) [Mass/Mass] Ordered By: Shannan Waldrop on 08-04-2023 Iron [Mass/Vol] 65 ug/dL 50-[address] [facility] Iron measurement (mass/mass) Ordered By: Shannan Waldrop on 08-04-2023 Iron (Unsp spec) [Mass/Mass] 65 ug/dL 50-[address] [facility] Iron saturation [Mass fracti on]Ordered By: Shannan Waldrop on 08-04-2023 Iron Saturation 23.6 % 15.0-55.[address] [facility] No Panel InformationOrdered By: Shannan Waldrop on 08-04-2023 Total Iron Binding Capacity 276 ug/dL 250-[address] [facility] 276 ug/dL 250-[address] [facility] Serum or plasma ferritin bryce surement (mass/volume)Ordered By: [facility] on 08-04-2023 Ferritin [Mass/Vol] 102 ng/mL 8-252 [facility] Serum or plasma iron saturat ion measurement (mass fraction)Ordered By: [facility] on 08-04-2023 Iron saturation [Mass fraction] 23.6 % 15.0-55.[address] [facility] Absolute lymphocyte countOrd ered By: [facility] 07-[facility]23 Lymphocytes Auto (Unsp spec) [#/Vol] 1.23 10*3/uL 0.83-4.[address] [facility] Basophil percentageOrdered B y: Shannan Loweryantelmo on 07-28-2023 Basophil percentage 3.0 mg/dL 2.5-4.9 [facility] Basophils/100 WBC (Bld) 0.5 % 0-1 [facility] Bilirubin [Mass/Vol] 0.40 mg/dL 0.20-1.00 [facility] Comment on above: For patients on eltr ombopag therapy, use of Dimension Bryant TBIL is not recommended. Chloride [Moles/Vol] 108 mmol/L 98-107 [facility] Eosinophils/100 WBC (Bld) 1.2 % 0-[address] [facility] Glucose [Mass/Vol] 223 mg/dL 74-106 [facility] Comment on above: Glucose result great er than or equal to 200 mg/dLsuggests DIABETES MELLITUS per A.D.A. criteria. Neutrophils (Bld) [#/Vol] 5.3 10*3/uL 2.0-7.[address] [facility] Neutrophils/100 WBC (Bld) 71.1 % 47-[address] [facility] Potassium [Moles/Vol] 4.2 mmol/L 3.5-5.1 [facility] Protein [Mass/Vol] 6.9 g/dL 6.4-8.2 [facility] Sodium [Moles/Vol] 139 mmol/L 136-145 [facility] WBC (Bld) [#/Vol] 7.5 10*3/uL 4.4-11.0 [facility] Blood erythrocytes count (nu mber/volume)Ordered By: Shannan Waldrop on 07-28-2023 RBC (Bld) [#/Vol] 4.07 10*6/uL 4.2-5.4 [facility] Blood hemoglobin measurement (mass/volume)Ordered By: Shannan Waldrop on 07-28-2023 Hemoglobin (Bld) [Mass/Vol] 12.7 g/dL 12.0-15.[address] [facility] Blood lymphocytes/100 leukoc ytesOrdered By: [facility] on 07-28-2023 Lymphocytes/100 WBC (Bld) 16.4 % 19-[address] [facility] Blood monocytes/100 leukocyt esOrdered By: [facility] on 07-28-2023 Monocytes/100 WBC (Bld) 10.4 % 0-10 [facility] Blood platelet mean volumeOr dered By: [facility] Benjie on 07-28-2023 Platelet mean volume (Bld) [Entitic vol] 9.5 fL 6.2-12.[address] [facility] Determination of erythrocyte mean corpuscular volume (MCV)Ordered By: [facility] on 07-28-2023 MCV (RBC) [Entitic vol] 99.5 fL 81-99 [facility] Hematocrit Auto (Bld) [Volum e fraction]Ordered By: [facility] Benjie on 07-28-2023 Hematocrit (Bld) [Volume fraction] 40.5 % 37-[address] [facility] Laboratory - Chemistry and C hemistry - challengeOrdered By: [facility] Benjie on 07-28-2023 ALP [Catalytic activity/Vol] 64 U/L 45-[address] [facility] ALT [Catalytic activity/Vol] 20 U/L 13-[address] [facility] CO2 [Moles/Vol] 24.0 mmol/L 21.0-32.[address] [facility] Globulin (S) [Mass/Vol] 3.7 g/dL 2.2-4.2 [facility] Magnesium [Mass/Vol] 1.6 mg/dL 1.6-2.6 [facility] Urea nitrogen/Creatinine [Mass ratio] 16.5 mg/mg 10-[address] [facility] Laboratory - Hematology and Cell countsOrdered By: Shannan Waldrop on 07-28-2023 Erythrocyte distribution width (RBC) [Entitic vol] 53.1 fL 35.1-43.9 [facility] Erythrocyte distribution width (RBC) [Ratio] 14.6 % 11.6-14.[address] [facility] Immature granulocytes/100 WBC (Bld) 0.400 % 0.0-0.[address] [facility] Comment on above: IG% - Immature Granu locytes (promyelocytes, myelocytes and metamyelocytes) > 1% indicates that a LEFT SHIFT is Present. MCH (RBC) [Entitic mass] 31.2 pg 27.0-32.[address] [facility] Nucleated RBC/100 WBC (Bld) [Ratio] 0 % 0-[address] [facility] MCHC Auto (RBC) [Mass/Vol]Or dered By: Shannan Waldrop on 07-28-2023 MCHC (RBC) [Mass/Vol] 31.4 g/dL 32-36 [facility] No Panel InformationOrdered By: Shannan Waldrop on 07-28-2023 Estimated Creatinine Clearance Calc 42.59 ml/min [facility] Estimated GFR (MDRD) Amer 102 mL/min >[address] [facility] Comment on above: GFR Calc Estimated GFR (MDRD) Non-Af Amer 85 mL/min >[address] [facility] Comment on above: Non- GFR Calc Platelets bldOrdered By: Howard Waldrop on 07-28-2023 Platelets (Bld) [#/Vol] 284 10*3/uL 150-[address] [facility] Serum or plasma albumin joaquin urement (mass/volume)Ordered By: Shannan Waldrop on 07-28-2023 Albumin [Mass/Vol] 3.2 g/dL 3.2-5.0 [facility] Serum or plasma albumin/glob ulin mass ratioOrdered By: Shannan Waldrop on 07-28-2023 Albumin/Globulin [Mass ratio] 0.9 {ratio} 0.9-2.[address] [facility] Serum or plasma calcium joaquin urement (mass/volume)Ordered By: Shannan Waldrop on 07-28-2023 Calcium [Mass/Vol] 9.1 mg/dL 8.5-10.1 [facility] Serum or plasma creatinine m easurement (mass/volume)Ordered By: Shannan Waldrop on 07-28-2023 Creatinine [Mass/Vol] 0.73 mg/dL 0.55-1.02 [facility] Comment on above: The validity of the calculated GFR & GFRAA in patients over 70 years has not been determined. Clinical correlation is essential. Serum or plasma urea nitroge n measurement (mass/volume)Ordered By: Shannan Waldrop on 07-28-2023 Urea nitrogen [Mass/Vol] 12 mg/dL 7-[address] [facility] Thin prep Papanicolaou smear with manual screeningOrdered By: Shannan Waldrop on 07-28-2023 Thin prep Papanicolaou smear with manual screening 10 U/L 15-[address] [facility] Thin prep Papanicolaou smear with manual screening 7 5-[address] [facility] Basophil percentageOrdered B y: Brennen Roth on 07-24-2023 Creatinine [Mass/Vol] 1.2 mg/dL 0.55-1.02 [facility] Laboratory - Chemistry and C hemistry - challengeOrdered By: Brennen Roth on 07-24-2023 GFR/1.73 sq M.predicted among non-blacks MDRD (S/P/Bld) [Vol rate/Area] 47.0000 mL/min/{1.73_m2} >[address] [facility] Glucose Glucometer (BldC) [M ass/Vol]Ordered By: Isreal Carvalho on 07-22-2023 Glucose [Mass/Vol] 125 mg/dL 74-106 [facility] Comment on above: MANAGEMENT OF PATIEN T CARE PER NURSING PROTOCOL CNOVon 06-19-2023 CNOV Office Visit (THORMN) KAELYN POWERS ([id number]) 1955 F CHT Date Time Provider Department 06/19/23 10:40 AM JOHN GREEN During your visit today, we recorded the following information about you: Temperature Pulse Respiration Blood pressure 98.5 degrees 58/minute 14/minute 119/88 Weight Height 82.6 kg 1.575 m John Green MD, PhD 06/20/2023 12:10 PM Unsigned [employer] [place] [id number] [place] DEPART[facility] OF THORACIC AND CARDIOVASCULAR SURGERY NAME: KAELYN POWERS CLINIC #: [id number] DATE: 06/19/2023 AGE: 67 PHYSICIAN: John Green [...] the same time, was noted to have DC, which was likely an NSTEMI. The patient [...] ischemic heart disease. John Green M.D., Ph.D. :[id number] /[id number] John Green MD, PhD 06/23/2023 3:00 PM Signed [facility] OUTPATIENT CONSULT NOTE Kaelyn Powers [id number] Requesting Provider: Pinky Winter MD Thoracic Physician: John Green MD Chief Complaint: Lung cancer Impression: 67 yo former 50 pack year smoker F with CAD/DC (ASA+Plavix), SDH s/p crainotomy and evacuation, PAD (cannot walk 10 feet without stopping), EtOH use, who presents with a biopsy proven [id number] NSCLC of the left upper lobe by [...] former 50 pack year smoker F with CAD/DC (ASA+Plavix), SDH s/p crainotomy and evacuation, PAD (cannot walk 10 feet without stopping), EtOH use, who presents with a biopsy proven [id number] NSCLC of the left upper lobe by PET scan. This has been monitored for the last two years. However, over the last year the patient has been hospitalized for a SDH, then COVID, then a mild DC. She did not receive any coronary angioplasty for this. She has not yet seen an oncologist or radiation oncologist. FEV1 100%. DLCO 128%. 6MWT 54.8% Living arrangement: Lives with family/friend Functional status: Independent Unintentional weight loss over last 3 months: No PAST MEDICAL HISTORY Diagnosis Date Alcoholism (HCC) Anemia Arthritis Bladder infection CAD S/P percutaneous cor (more content not included)... Normal [facility] Absolute lymphocyte countOrd ered By: Gwendolyn Petersen on 06-14-2023 Lymphocytes Auto (Unsp spec) [#/Vol] 1.15 10*3/uL 0.83-4.[address] [facility] Basophil percentageOrdered B y: Gwenodlyn Petersen on 06-14-2023 Basophils/100 WBC (Bld) 0.2 % 0-1 [facility] Chloride [Moles/Vol] 110 mmol/L 98-107 [facility] Eosinophils/100 WBC (Bld) 1.0 % 0-[address] [facility] Glucose [Mass/Vol] 156 mg/dL 74-106 [facility] Comment on above: Fasting Glucose resu lt greater than or equal to 126 mg/dL suggests DIABETES MELLITUS per A.D.A. criteria. Neutrophils (Bld) [#/Vol] 2.3 10*3/uL 2.0-7.[address] [facility] Neutrophils/100 WBC (Bld) 56.4 % 47-[address] [facility] Potassium [Moles/Vol] 3.8 mmol/L 3.5-5.1 [facility] Sodium [Moles/Vol] 136 mmol/L 136-145 [facility] WBC (Bld) [#/Vol] 4.1 10*3/uL 4.4-11.0 [facility] Blood erythrocytes count (nu mber/volume)Ordered By: Gwendolyn Petersen on 06-14-2023 RBC (Bld) [#/Vol] 4.13 10*6/uL 4.2-5.4 [facility] Blood hemoglobin measurement (mass/volume)Ordered By: Gwendolyn Petersen on 06-14-2023 Hemoglobin (Bld) [Mass/Vol] 13.3 g/dL 12.0-15.[address] [facility] Blood lymphocytes/100 leukoc ytesOrdered By: Gwendolyn Petersen on 06-14-2023 Lymphocytes/100 WBC (Bld) 28.0 % 19-[address] [facility] Blood monocytes/100 leukocyt esOrdered By: Gwendolyn Petersen on 06-14-2023 Monocytes/100 WBC (Bld) 13.9 % 0-10 [facility] Blood platelet mean volumeOr dered By: Gwendolyn Petersen on 06-14-2023 Platelet mean volume (Bld) [Entitic vol] 9.0 fL 6.2-12.[address] [facility] Determination of erythrocyte mean corpuscular volume (MCV)Ordered By: Gwendolyn Petersen on 06-14-2023 MCV (RBC) [Entitic vol] 98.1 fL 81-99 [facility] Glucose Glucometer (BldC) [M ass/Vol]Ordered By: Gwendolyn Petersen on 06-14-2023 Glucose [Mass/Vol] 174 mg/dL 74-106 [facility] Comment on above: MANAGEMENT OF PATIEN T CARE PER NURSING PROTOCOL Hematocrit Auto (Bld) [Volum e fraction]Ordered By: Gwendolyn Petersen on 06-14-2023 Hematocrit (Bld) [Volume fraction] 40.5 % 37-[address] [facility] Laboratory - Chemistry and C hemistry - challengeOrdered By: Gwendolyn Petersen on 06-14-2023 CO2 [Moles/Vol] 26.0 mmol/L 21.0-32.[address] [facility] Urea nitrogen/Creatinine [Mass ratio] 20.5 mg/mg 10-[address] [facility] Laboratory - Hematology and Cell countsOrdered By: Gwendolyn Petersen on 06-14-2023 Erythrocyte distribution width (RBC) [Entitic vol] 49.2 fL 35.1-43.9 [facility] Erythrocyte distribution width (RBC) [Ratio] 13.8 % 11.6-14.[address] [facility] Immature granulocytes/100 WBC (Bld) 0.500 % 0.0-0.[address] [facility] Comment on above: IG% - Immature Granu locytes (promyelocytes, myelocytes and metamyelocytes) > 1% indicates that a LEFT SHIFT is Present. MCH (RBC) [Entitic mass] 32.2 pg 27.0-32.[address] [facility] Nucleated RBC/100 WBC (Bld) [Ratio] 0 % 0-[address] [facility] MCHC Auto (RBC) [Mass/Vol]Or dered By: Gwendolyn Petersen on 06-14-2023 MCHC (RBC) [Mass/Vol] 32.8 g/dL 32-36 [facility] No Panel InformationOrdered By: Gwendolyn Petersen on 06-14-2023 Estimated Creatinine Clearance Calc 42.59 ml/min [facility] Estimated GFR (MDRD) Amer 132 mL/min >[address] [facility] Comment on above: GFR Calc Estimated GFR (MDRD) Non-Af Amer 109 mL/min >[address] [facility] Comment on above: Non- GFR Calc Platelets bldOrdered By: Keyon Petersen on 06-14-2023 Platelets (Bld) [#/Vol] 170 10*3/uL 150-[address] [facility] Serum or plasma calcium joaquin urement (mass/volume)Ordered By: Gwendolyn Petersen on 06-14-2023 Calcium [Mass/Vol] 8.1 mg/dL 8.5-10.1 [facility] Serum or plasma creatinine m easurement (mass/volume)Ordered By: Gwendolyn Petersen on 06-14-2023 Creatinine [Mass/Vol] 0.58 mg/dL 0.55-1.02 [facility] Comment on above: The validity of the calculated GFR & GFRAA in patients over 70 years has not been determined. Clinical correlation is essential. Serum or plasma urea nitroge n measurement (mass/volume)Ordered By: Gwendolyn Petersen on 06-14-2023 Urea nitrogen [Mass/Vol] 12 mg/dL 7-[address] [facility] Thin prep Papanicolaou smear with manual screeningOrdered By: Gwendolyn Petersen on 06-14-2023 Thin prep Papanicolaou smear with manual screening 0 5-[address] [facility] Whole blood hemoglobin A1c/t otal hemoglobin ratio (mass fraction)Ordered By: Gwendolyn Petersen on 06-14-2023 HbA1c (Bld) [Mass fraction] 8.1 % 3.8-5.[address] [facility] Comment on above: Normal < 5.7 % Predi abetic 5.7 - 6.4 % Diabetic >or= 6.5 % Please note range changes. Laboratory - CoagulationOrde red By: Williams Nye on 06-13-2023 aPTT Coag (Bld) [Time] 52.7 s 24.1-36.2 [facility] Basophil percentageOrdered B y: Nic Caraballo on 06-12-2023 Cholesterol [Mass/Vol] 133 mg/dL <200 [facility] Comment on above: <200 mg/dL Desirable 200-240 mg/dL Borderline >240 mg/dL High Risk Triglyceride [Mass/Vol] 129 mg/dL <199 [facility] Comment on above: The drugs N-Acetylcy steine and Metamizole may falsely depress this assay.Serum Triglycerides Reference Interval Normal <150 mg/dL Borderline high 150 - 199 mg/dL High 200 - 499 mg/dL Very High > or = 500 mg/dL No Panel InformationOrdered By: Gena Johnson on 06-12-2023 Troponin I High Sensitivity 1587 pg/mL 3.0-54.[address] [facility] Comment on above: Critical Result(s) C alled at: 11:58:06 06/12/2023 by: Maldonado Shannon RN (ICU). Results read back by same. Please Note: New Test Units and Gender Specific Reference Ranges. For more information see Policy Stat Procedure [facility] High Sensitivity Troponin (TNIH) and attachments. Serum or plasma cholesterol in HDL measurement (mass/volume)Ordered By: Nic Caraballo on 06-12-2023 Cholesterol in HDL [Mass/Vol] 41 mg/dL >[address] [facility] Comment on above: The drugs N-Acetylcy steine and Metamizole may falsely depress this assay. Reference Range HDL <40 mg/dL Low HDL Cholesterol HDL >or= 60 mg/dL High HDL Cholesterol Serum or plasma cholesterol in VLDL measurement (mass/volume)Ordered By: Nic Caraballo on 06-12-2023 Cholesterol in VLDL [Mass/Vol] 26 mg/dL 5-[address] [facility] Serum or plasma low density lipoprotein (LDL) cholesterol measurement (mass/volume)Ordered By: Nic Caraballo on 06-12-2023 Cholesterol in LDL [Mass/Vol] 66 mg/dL 0-[address] [facility] Absolute lymphocyte countOrd ered By: Williams Nye on 06-11-2023 Lymphocytes Auto (Unsp spec) [#/Vol] 1.11 10*3/uL 0.83-4.[address] [facility] Basophil percentageOrdered B y: Williams Nye on 06-11-2023 Basophils/100 WBC (Bld) 0.6 % 0-1 [facility] Chloride [Moles/Vol] 99 mmol/L 98-107 [facility] Eosinophils/100 WBC (Bld) 0.5 % 0-[address] [facility] Glucose [Mass/Vol] 194 mg/dL 74-106 [facility] Comment on above: Fasting Glucose resu lt greater than or equal to 126 mg/dL suggests DIABETES MELLITUS per A.D.A. criteria. Neutrophils (Bld) [#/Vol] 4.0 10*3/uL 2.0-7.[address] [facility] Neutrophils/100 WBC (Bld) 63.2 % 47-[address] [facility] Potassium [Moles/Vol] 4.1 mmol/L 3.5-5.1 [facility] Sodium [Moles/Vol] 132 mmol/L 136-145 [facility] WBC (Bld) [#/Vol] 6.3 10*3/uL 4.4-11.0 [facility] Blood erythrocytes count (nu mber/volume)Ordered By: Williams Nye on 06-11-2023 RBC (Bld) [#/Vol] 4.70 10*6/uL 4.2-5.4 [facility] Blood hemoglobin measurement (mass/volume)Ordered By: Williams Nye on 06-11-2023 Hemoglobin (Bld) [Mass/Vol] 15.4 g/dL 12.0-15.[address] [facility] Blood lymphocytes/100 leukoc ytesOrdered By: Williams Nye on 06-11-2023 Lymphocytes/100 WBC (Bld) 17.5 % 19-[address] [facility] Blood monocytes/100 leukocyt esOrdered By: Williams Nye on 06-11-2023 Monocytes/100 WBC (Bld) 17.4 % 0-10 [facility] Blood platelet mean volumeOr dered By: Williams Nye on 06-11-2023 Platelet mean volume (Bld) [Entitic vol] 9.8 fL 6.2-12.[address] [facility] Determination of erythrocyte mean corpuscular volume (MCV)Ordered By: Williams Nye on 06-11-2023 MCV (RBC) [Entitic vol] 96.4 fL 81-99 [facility] Hematocrit Auto (Bld) [Volum e fraction]Ordered By: Williams Nye on 06-11-2023 Hematocrit (Bld) [Volume fraction] 45.3 % 37-[address] [facility] INR in Blood by Coagulation assayOrdered By: Williams Nye on 06-11-2023 INR Coag (Bld) [Relative time] 1.2 {INR} [facility] Influenza virus A and B and SARS-CoV-2 (COVID-19) Ag panel - Upper respiratory specimOrdered By: Williams Nye on 06-11-2023 SARS-CoV-2 & FLU Antigen (Rapid) SARS-CoV-2 (COVID 19) [facility] SARS-CoV-2 & FLU Antigen (Rapid) SARS-CoV-2 (COVID 19) [facility] Laboratory - Chemistry and C hemistry - challengeOrdered By: Williams Nye on 06-11-2023 CO2 [Moles/Vol] 27.0 mmol/L 21.0-32.[address] [facility] Urea nitrogen/Creatinine [Mass ratio] 13.0 mg/mg [address] [facility] Laboratory - CoagulationOrde red By: Williams Nye on 06-11-2023 aPTT Coag (Bld) [Time] 35.8 s 24.1-36.2 [facility] PT Coag (PPP) [Time] 14.9 s 11.7-14.9 [facility] Laboratory - Hematology and Cell countsOrdered By: Williams Nye on 06-11-2023 Erythrocyte distribution width (RBC) [Entitic vol] 48.1 fL 35.1-43.9 [facility] Erythrocyte distribution width (RBC) [Ratio] 13.4 % 11.6-14.[address] [facility] Immature granulocytes/100 WBC (Bld) 0.800 % 0.0-0.[address] [facility] Comment on above: IG% - Immature Granu locytes (promyelocytes, myelocytes and metamyelocytes) > 1% indicates that a LEFT SHIFT is Present. MCH (RBC) [Entitic mass] 32.8 pg 27.0-32.[address] [facility] Nucleated RBC/100 WBC (Bld) [Ratio] 0 % 0-[address] [facility] MCHC Auto (RBC) [Mass/Vol]Or dered By: Williams Nye on 06-11-2023 MCHC (RBC) [Mass/Vol] 34.0 g/dL 32-36 [facility] No Panel InformationOrdered By: Williams Nye on 06-11-2023 Estimated Creatinine Clearance Calc 46.29 ml/min [facility] Estimated GFR (MDRD) Amer 78 mL/min >[address] [facility] Comment on above: GFR Calc Estimated GFR (MDRD) Non-Af Amer 64 mL/min >[address] [facility] Comment on above: Non- GFR Calc Troponin I High Sensitivity 816 pg/mL 3.0-54.[address] [facility] Comment on above: Critical Result(s) C alled at: 18:08:39 06/11/2023 by: Shaina JONES. Results read back by same. Please Note: New Test Units and Gender Specific Reference Ranges. For more information see Policy Stat Procedure [facility] High Sensitivity Troponin (TNIH) and attachments. Platelets bldOrdered By: Jamari Nye on 06-11-2023 Platelets (Bld) [#/Vol] 234 10*3/uL 150-[address] [facility] Serum or plasma calcium joaquin urement (mass/volume)Ordered By: Williams Nye on 06-11-2023 Calcium [Mass/Vol] 9.0 mg/dL 8.5-10.1 [facility] Serum or plasma creatinine m easurement (mass/volume)Ordered By: Williams Nye on 06-11-2023 Creatinine [Mass/Vol] 0.92 mg/dL 0.55-1.02 [facility] Comment on above: The validity of the calculated GFR & GFRAA in patients over 70 years has not been determined. Clinical correlation is essential. Serum or plasma urea nitroge n measurement (mass/volume)Ordered By: Williams Nye on 06-11-2023 Urea nitrogen [Mass/Vol] 12 mg/dL 03-[address] [facility] Thin prep Papanicolaou smear with manual screeningOrdered By: Williams Nye on 06-11-2023 Thin prep Papanicolaou smear with manual screening 6 5-[address] [facility] CNPNon 06-04-2023 CNPN Telephone ([employer]) HODAKAELYN Nataly ([id number]) 1955 F T Date Time Provider Department 06/04/23 JOHN GREEN During your visit today, we recorded the following information about you: Eli Rae 06/06/2023 1:33 PM Addendum LOCAL PATIENT Received Call from Dr. Maggy Powers is being referred to John Green M.D., Ph. D. by Pinky Winter MD ([facility]) [address] [facility] [address] Patient diagnosis/Reason for consult: NSCLC, Nodule to be Resected Referral triage process explained: Yes Patient will receive a call from Thoracic NPM after triage review with surgeon to discuss any additional testing and/or consults that will be scheduled. Pt will then receive a call from our scheduling office for scheduling. Please call pt at [phone]. Patient was informed consultation could be at [place] or [facility] [place]: No Patient Registration: Registration complete/updated: yes Insurance card(s) scanned in [facility] with in the past year: Yes: Date: 04/18/22 Pt's [employer] is inactive. Ok to communicate to pt via [employer] not asked Medical Records: Records in [facility] (internal [facility] records): No Imaging in [facility] (internal [facility] records): No Care Everywhere [...] 05, 2023 Outside Hospital(s) requested imaging from: [facility]. Imaging will be received via Electronic Transfer Received: Yes Imaging uploaded: Yes Waiting on additional: No. Missing (list): n/a Additional providers added to Care Teams: Yes Additional Notes/Comments: n/a Enct routed to: Jose CROCKETT for Triage Eli Rae, network engineer administrator Altagracia Dash RN 06/16/2023 1:16 PM Addendum Thoracic Surgery Consultation - review of records for appointment scheduling Received medical records from the office of Pinky Winter MD ([facility]) [address] [place] [address] [facility] [address] Patient is being referred to John Green [...] moderate biatrial dilatation. Office Notes/Consults 06/12 [place] - dr black Assessment/Plan (1) NSTEMI, [...] recent A1C (more content not included)... Normal [facility] Absolute lymphocyte countOrd ered By: Claude Nunez on 05-01-2023 Lymphocytes Auto (Unsp spec) [#/Vol] 1.69 10*3/uL 0.83-4.[address] [facility] Basophil percentageOrdered B y: Claude Nunez on 05-01-2023 Basophils/100 WBC (Bld) 0.6 % 0-1 [facility] Eosinophils/100 WBC (Bld) 1.9 % 0-[address] [facility] Neutrophils (Bld) [#/Vol] 4.3 10*3/uL 2.0-7.[address] [facility] Neutrophils/100 WBC (Bld) 62.1 % 47-[address] [facility] WBC (Bld) [#/Vol] 6.8 10*3/uL 4.4-11.0 [facility] Blood erythrocytes count (nu mber/volume)Ordered By: Claude Nunez on 05-01-2023 RBC (Bld) [#/Vol] 4.42 10*6/uL 4.2-5.4 [facility] Blood hemoglobin measurement (mass/volume)Ordered By: Claude Nunez on 05-01-2023 Hemoglobin (Bld) [Mass/Vol] 14.4 g/dL 12.0-15.[address] [facility] Blood lymphocytes/100 leukoc ytesOrdered By: Claude Nunez on 05-01-2023 Lymphocytes/100 WBC (Bld) 24.7 % 19-[address] [facility] Blood monocytes/100 leukocyt esOrdered By: Claude Nunez on 05-01-2023 Monocytes/100 WBC (Bld) 10.1 % 0-10 [facility] Blood platelet mean volumeOr dered By: Claude Nunez on 05-01-2023 Platelet mean volume (Bld) [Entitic vol] 9.2 fL 6.2-12.[address] [facility] Determination of erythrocyte mean corpuscular volume (MCV)Ordered By: Claude Nunez on 05-01-2023 MCV (RBC) [Entitic vol] 99.5 fL 81-99 [facility] Hematocrit Auto (Bld) [Volum e fraction]Ordered By: Claude Nunez on 05-01-2023 Hematocrit (Bld) [Volume fraction] 44.0 % 37-[address] [facility] INR in Blood by Coagulation assayOrdered By: Claude Nunez on 05-01-2023 INR Coag (Bld) [Relative time] 0.9 {INR} [facility] Laboratory - CoagulationOrde red By: Claude Nunez on 05-01-2023 aPTT Coag (Bld) [Time] 31.5 s 24.1-36.2 [facility] PT Coag (PPP) [Time] 12.4 s 11.7-14.9 [facility] Laboratory - Hematology and Cell countsOrdered By: Claude Nunez on 05-01-2023 Erythrocyte distribution width (RBC) [Entitic vol] 47.4 fL 35.1-43.9 [facility] Erythrocyte distribution width (RBC) [Ratio] 12.8 % 11.6-14.[address] [facility] Immature granulocytes/100 WBC (Bld) 0.600 % 0.0-0.[address] [facility] Comment on above: IG% - Immature Granu locytes (promyelocytes, myelocytes and metamyelocytes) > 1% indicates that a LEFT SHIFT is Present. MCH (RBC) [Entitic mass] 32.6 pg 27.0-32.[address] [facility] Nucleated RBC/100 WBC (Bld) [Ratio] 0 % 0-[address] [facility] MCHC Auto (RBC) [Mass/Vol]Or dered By: Claude Nunez on 05-01-2023 MCHC (RBC) [Mass/Vol] 32.7 g/dL 32-36 [facility] Platelets bldOrdered By: Raciel Nunez on 05-01-2023 Platelets (Bld) [#/Vol] 240 10*3/uL 150-[address] [facility] Absolute lymphocyte countOrd ered By: Shannan Waldrop on 01-29-2023 Lymphocytes Auto (Unsp spec) [#/Vol] 1.90 10*3/uL 0.83-4.[address] [facility] Basophil percentageOrdered B y: Shannan Waldrop on 01-29-2023 Basophils/100 WBC (Bld) 0.6 % 0-1 [facility] Eosinophils/100 WBC (Bld) 1.9 % 0-[address] [facility] Neutrophils (Bld) [#/Vol] 3.7 10*3/uL 2.0-7.[address] [facility] Neutrophils/100 WBC (Bld) 57.2 % 47-[address] [facility] WBC (Bld) [#/Vol] 6.4 10*3/uL 4.4-11.0 [facility] Blood erythrocytes count (nu mber/volume)Ordered By: Shannan Waldrop on 01-29-2023 RBC (Bld) [#/Vol] 4.19 10*6/uL 4.2-5.4 [facility] Blood hemoglobin measurement (mass/volume)Ordered By: Shannan Waldrop on 01-29-2023 Hemoglobin (Bld) [Mass/Vol] 13.8 g/dL 12.0-15.[address] [facility] Blood lymphocytes/100 leukoc ytesOrdered By: Shannan Waldrop on 01-29-2023 Lymphocytes/100 WBC (Bld) 29.5 % 19-[address] [facility] Blood monocytes/100 leukocyt esOrdered By: Shannan Waldrop on 01-29-2023 Monocytes/100 WBC (Bld) 10.0 % 0-10 [facility] Blood platelet mean volumeOr dered By: Shannan Waldrop on 01-29-2023 Platelet mean volume (Bld) [Entitic vol] 9.3 fL 6.2-12.[address] [facility] Determination of erythrocyte mean corpuscular volume (MCV)Ordered By: Shannan Waldrop on 01-29-2023 MCV (RBC) [Entitic vol] 98.8 fL 81-99 [facility] Hematocrit Auto (Bld) [Volum e fraction]Ordered By: Shannan Waldrop on 01-29-2023 Hematocrit (Bld) [Volume fraction] 41.4 % 37-[address] [facility] Iron measurement (mass/mass) Ordered By: Shannan Waldrop on 01-29-2023 Iron (Unsp spec) [Mass/Mass] 88 ug/dL 50-[address] [facility] Laboratory - Hematology and Cell countsOrdered By: Shannan Waldrop on 01-29-2023 Erythrocyte distribution width (RBC) [Entitic vol] 48.9 fL 35.1-43.9 [facility] Erythrocyte distribution width (RBC) [Ratio] 13.4 % 11.6-14.[address] [facility] Immature granulocytes/100 WBC (Bld) 0.800 % 0.0-0.[address] [facility] Comment on above: IG% - Immature Granu locytes (promyelocytes, myelocytes and metamyelocytes) > 1% indicates that a LEFT SHIFT is Present. MCH (RBC) [Entitic mass] 32.9 pg 27.0-32.[address] [facility] Nucleated RBC/100 WBC (Bld) [Ratio] 0 % 0-[address] [facility] MCHC Auto (RBC) [Mass/Vol]Or dered By: Shannan Waldrop on 01-29-2023 MCHC (RBC) [Mass/Vol] 33.3 g/dL 32-36 [facility] No Panel InformationOrdered By: Shannan Waldrop on 01-29-2023 Total Iron Binding Capacity 334 ug/dL 250-[address] [facility] Platelets bldOrdered By: Howard Waldrop on 01-29-2023 Platelets (Bld) [#/Vol] 241 10*3/uL 150-[address] [facility] Serum or plasma ferritin bryce surement (mass/volume)Ordered By: Shannan Waldrop on 01-29-2023 Ferritin [Mass/Vol] 51 ng/mL 8-252 [facility] Serum or plasma iron saturat ion measurement (mass fraction)Ordered By: Shannan Waldrop on 01-29-2023 Iron saturation [Mass fraction] 26.3 % 15.0-55.[address] [facility] Basophil percentageOrdered B y: Iris Clayton on 11-06-2022 Chloride [Moles/Vol] 107 mmol/L 98-107 [facility] Cholesterol [Mass/Vol] 194 mg/dL <200 [facility] Comment on above: <200 mg/dL Desirable 200-240 mg/dL Borderline >240 mg/dL High Risk Glucose [Mass/Vol] 119 mg/dL 74-106 [facility] Comment on above: Fasting Glucose resu lt from 100 to 125 mg/dL suggests IMPAIRED HOMEOSTASIS per A.D.A. criteria. Potassium [Moles/Vol] 4.1 mmol/L 3.5-5.1 [facility] Sodium [Moles/Vol] 140 mmol/L 136-145 [facility] Triglyceride [Mass/Vol] 260 mg/dL <199 [facility] Comment on above: The drugs N-Acetylcy steine and Metamizole may falsely depress this assay.Serum Triglycerides Reference Interval Normal <150 mg/dL Borderline high 150 - 199 mg/dL High 200 - 499 mg/dL Very High > or = 500 mg/dL Laboratory - Chemistry and C hemistry - challengeOrdered By: Iris Clayton on 11-06-2022 CO2 [Moles/Vol] 26.0 mmol/L 21.0-32.[address] [facility] Urea nitrogen/Creatinine [Mass ratio] 25.2 mg/mg 10-[address] [facility] No Panel InformationOrdered By: Iris Clayton on 11-06-2022 Estimated GFR (MDRD) Amer 129 mL/min >[address] [facility] Comment on above: GFR Calc Estimated GFR (MDRD) Non-Af Amer 107 mL/min >[address] [facility] Comment on above: Non- GFR Calc Serum or plasma calcium joaquin urement (mass/volume)Ordered By: Iris Clayton on 11-06-2022 Calcium [Mass/Vol] 9.3 mg/dL 8.5-10.1 [facility] Serum or plasma cholesterol in HDL measurement (mass/volume)Ordered By: Iris Clayton on 11-06-2022 Cholesterol in HDL [Mass/Vol] 39 mg/dL >[address] [facility] Comment on above: The drugs N-Acetylcy steine and Metamizole may falsely depress this assay. Reference Range HDL <40 mg/dL Low HDL Cholesterol HDL >or= 60 mg/dL High HDL Cholesterol Serum or plasma cholesterol in VLDL measurement (mass/volume)Ordered By: Iris Clayton on 11-06-2022 Cholesterol in VLDL [Mass/Vol] 52 mg/dL 5-[address] [facility] Serum or plasma creatinine m easurement (mass/volume)Ordered By: Iris Clayton on 11-06-2022 Creatinine [Mass/Vol] 0.60 mg/dL 0.55-1.02 [facility] Comment on above: The validity of the calculated GFR & GFRAA in patients over 70 years has not been determined. Clinical correlation is essential. Serum or plasma low density lipoprotein (LDL) cholesterol measurement (mass/volume)Ordered By: Iris Clayton on 11-06-2022 Cholesterol in LDL [Mass/Vol] 103 mg/dL 0-[address] [facility] Serum or plasma urea nitroge n measurement (mass/volume)Ordered By: Iris Clayton on 11-06-2022 Urea nitrogen [Mass/Vol] 15 mg/dL 7-[address] [facility] Thin prep Papanicolaou smear with manual screeningOrdered By: Iris Clayton on 11-06-2022 Thin prep Papanicolaou smear with manual screening 7 5-[address] [facility] Basophil percentageOrdered B y: Iris Clayton on 08-13-2022 Bilirubin [Mass/Vol] 0.40 mg/dL 0.20-1.00 [facility] Comment on above: For patients on eltr ombopag therapy, use of Dimension Bryant TBIL is not recommended. Chloride [Moles/Vol] 106 mmol/L 98-107 [facility] Glucose [Mass/Vol] 126 mg/dL 74-106 [facility] Comment on above: Fasting Glucose resu lt greater than or equal to 126 mg/dL suggests DIABETES MELLITUS per A.D.A. criteria. Potassium [Moles/Vol] 4.4 mmol/L 3.5-5.1 [facility] Protein [Mass/Vol] 6.7 g/dL 6.4-8.2 [facility] Sodium [Moles/Vol] 139 mmol/L 136-145 [facility] Laboratory - Chemistry and C hemistry - challengeOrdered By: Iris Clayton on 08-13-2022 ALP [Catalytic activity/Vol] 73 U/L 45-[address] [facility] ALT [Catalytic activity/Vol] 29 U/L 13-[address] [facility] CO2 [Moles/Vol] 28.0 mmol/L 21.0-32.[address] [facility] Globulin (S) [Mass/Vol] 3.1 g/dL 2.2-4.2 [facility] Urea nitrogen/Creatinine [Mass ratio] 23.2 mg/mg 10-[address] [facility] No Panel InformationOrdered By: Iris Clayton on 08-13-2022 Estimated GFR (MDRD) Amer 127 mL/min >[address] [facility] Comment on above: GFR Calc Estimated GFR (MDRD) Non-Af Amer 105 mL/min >[address] [facility] Comment on above: Non- GFR Calc Serum or plasma albumin joaquin urement (mass/volume)Ordered By: Iris Clayton on 08-13-2022 Albumin [Mass/Vol] 3.6 g/dL 3.2-5.0 [facility] Serum or plasma albumin/glob ulin mass ratioOrdered By: Iris Clayton on 08-13-2022 Albumin/Globulin [Mass ratio] 1.2 {ratio} 0.9-2.[address] [facility] Serum or plasma calcium joaquin urement (mass/volume)Ordered By: Iris Clayton on 08-13-2022 Calcium [Mass/Vol] 9.2 mg/dL 8.5-10.1 [facility] Serum or plasma creatinine m easurement (mass/volume)Ordered By: Iris Clayton on 08-13-2022 Creatinine [Mass/Vol] 0.60 mg/dL 0.55-1.02 [facility] Comment on above: The validity of the calculated GFR & GFRAA in patients over 70 years has not been determined. Clinical correlation is essential. Serum or plasma urea nitroge n measurement (mass/volume)Ordered By: Iris Clayton on 08-13-2022 Urea nitrogen [Mass/Vol] 14 mg/dL 7-[address] [facility] Thin prep Papanicolaou smear with manual screeningOrdered By: Iris Clayton on 08-13-2022 Thin prep Papanicolaou smear with manual screening 11 U/L 15-[address] [facility] Thin prep Papanicolaou smear with manual screening 5 5-[address] [facility] Culture, urineOrdered By: Robina Clayton on 07-31-2022 Bacteria identified Cx Nom (U) Presumptive E. coli [facility] Absolute lymphocyte countOrd ered By: Dr. Waldrop on 07-30-2022 Lymphocytes Auto (Unsp spec) [#/Vol] 1.97 10*3/uL 0.83-4.[address] [facility] Basophil percentageOrdered B y: Dr. Waldrop on 07-30-2022 Basophils/100 WBC (Bld) 0.4 % 0-1 [facility] Eosinophils/100 WBC (Bld) 1.2 % 0-[address] [facility] Neutrophils (Bld) [#/Vol] 5.9 10*3/uL 2.0-7.[address] [facility] Neutrophils/100 WBC (Bld) 65.6 % 47-[address] [facility] WBC (Bld) [#/Vol] 8.9 10*3/uL 4.4-11.0 [facility] Blood erythrocytes count (nu mber/volume)Ordered By: Dr. Waldrop on 07-30-2022 RBC (Bld) [#/Vol] 5.30 10*6/uL 4.2-5.4 [facility] Blood hemoglobin measurement (mass/volume)Ordered By: Dr. Waldrop on 07-30-2022 Hemoglobin (Bld) [Mass/Vol] 16.8 g/dL 12.0-15.[address] [facility] Blood lymphocytes/100 leukoc ytesOrdered By: Dr. Waldrop on 07-30-2022 Lymphocytes/100 WBC (Bld) 22.0 % 19-[address] [facility] Blood monocytes/100 leukocyt esOrdered By: Dr. Waldrop on 07-30-2022 Monocytes/100 WBC (Bld) 10.5 % 0-10 [facility] Blood platelet mean volumeOr dered By: Dr. Waldrop on 07-30-2022 Platelet mean volume (Bld) [Entitic vol] 9.3 fL 6.2-12.[address] [facility] Determination of erythrocyte mean corpuscular volume (MCV)Ordered By: Dr. Waldrop on 07-30-2022 MCV (RBC) [Entitic vol] 96.0 fL 81-99 [facility] Hematocrit Auto (Bld) [Volum e fraction]Ordered By: Dr. Waldrop on 07-30-2022 Hematocrit (Bld) [Volume fraction] 50.9 % 37-[address] [facility] Iron measurement (mass/mass) Ordered By: Dr. Waldrop on 07-30-2022 Iron (Unsp spec) [Mass/Mass] 89 ug/dL 50-[address] [facility] Laboratory - Hematology and Cell countsOrdered By: Dr. Waldrop on 07-30-2022 Erythrocyte distribution width (RBC) [Entitic vol] 57.9 fL 35.1-43.9 [facility] Erythrocyte distribution width (RBC) [Ratio] 16.4 % 11.6-14.[address] [facility] Immature granulocytes/100 WBC (Bld) 0.300 % 0.0-0.[address] [facility] Comment on above: IG% - Immature Granu locytes (promyelocytes, myelocytes and metamyelocytes) > 1% indicates that a LEFT SHIFT is Present. MCH (RBC) [Entitic mass] 31.7 pg 27.0-32.[address] [facility] Nucleated RBC/100 WBC (Bld) [Ratio] 0 % 0-[address] [facility] MCHC Auto (RBC) [Mass/Vol]Or dered By: Dr. Waldrop on 07-30-2022 MCHC (RBC) [Mass/Vol] 33.0 g/dL 32-36 [facility] No Panel InformationOrdered By: Dr. Waldrop on 07-30-2022 Total Iron Binding Capacity 384 ug/dL 250-[address] [facility] Platelets bldOrdered By: Dr. Waldrop on 07-30-2022 Platelets (Bld) [#/Vol] 225 10*3/uL 150-[address] [facility] Serum or plasma ferritin bryce surement (mass/volume)Ordered By: Dr. Waldrop on 07-30-2022 Ferritin [Mass/Vol] 23 ng/mL 8-252 [facility] Serum or plasma iron saturat ion measurement (mass fraction)Ordered By: Dr. Waldrop on 07-30-2022 Iron saturation [Mass fraction] 23.2 % 15.0-55.[address] [facility] CNOVon 05-23-2022 CNOV Normal [facility] CNOVon 05-07-2022 CNOV Normal [facility] Absolute lymphocyte counton 04-29-2022 Lymphocytes Auto (Unsp spec) [#/Vol] 1.23 10*3/uL 0.83-4.[address] [facility] Work Phone: Basophil percentageon 2021 Basophils/100 WBC (Bld) 0.3 % 0-1 [facility] Work Phone: Eosinophils/100 WBC (Bld) 1.0 % 0-[address] [facility] Work Phone: [phone] Neutrophils (Bld) [#/Vol] 4.8 10*3/uL 2.0-7.[address] [facility] Work Phone: [phone] Neutrophils/100 WBC (Bld) 71.9 % 47-[address] [facility] Work Phone: [phone] WBC (Bld) [#/Vol] 6.7 10*3/uL 4.4-11.0 [facility] Work Phone: [phone] Blood erythrocytes count (nu mber/volume)on 04-29-2022 RBC (Bld) [#/Vol] 4.27 10*6/uL 4.2-5.4 [facility] Work Phone: Blood hemoglobin measurement (mass/volume)on 04-29-2022 Hemoglobin (Bld) [Mass/Vol] 12.7 g/dL 12.0-15.[address] [facility] Work Phone: Blood lymphocytes/100 leukoc yteson 04-29-2022 Lymphocytes/100 WBC (Bld) 18.3 % 19-[address] [facility] Work Phone: Blood monocytes/100 leukocyt eson 04-29-2022 Monocytes/100 WBC (Bld) 8.2 % 0-10 [facility] Work Phone: Blood platelet mean volumeon 04-29-2022 Platelet mean volume (Bld) [Entitic vol] 9.2 fL 6.2-12.[address] [facility] Work Phone: Determination of erythrocyte mean corpuscular volume (MCV)on 04-29-2022 MCV (RBC) [Entitic vol] 97.0 fL 81-99 [facility] Work Phone: Hematocrit Auto (Bld) [Volum e fraction]on 04-29-2022 Hematocrit (Bld) [Volume fraction] 41.4 % 37-[address] [facility] Work Phone: Iron measurement (mass/mass) on 04-29-2022 Iron (Unsp spec) [Mass/Mass] 30 ug/dL 50-[address] [facility] Work Phone: Laboratory - Hematology and Cell countsOrdered By: Dr. Waldrop on 04-29-2022 Anisocytosis Ql (Bld) RARE [facility] Laboratory - Hematology and Cell countson 04-29-2022 Erythrocyte distribution width (RBC) [Entitic vol] 65.7 fL 35.1-43.9 [facility] Work Phone: Erythrocyte distribution width (RBC) [Ratio] 18.3 % 11.6-14.[address] [facility] Work Phone: Immature granulocytes/100 WBC (Bld) 0.300 % 0.0-0.[address] [facility] Work Phone: Comment on above: IG% - Immature Granu locytes (promyelocytes, myelocytes and metamyelocytes) > 1% indicates that a LEFT SHIFT is Present. MCH (RBC) [Entitic mass] 29.7 pg 27.0-32.[address] [facility] Work Phone: Nucleated RBC/100 WBC (Bld) [Ratio] 0 % 0-[address] [facility] Work Phone: MCHC Auto (RBC) [Mass/Vol]on 04-29-2022 MCHC (RBC) [Mass/Vol] 30.7 g/dL 32-36 [facility] Work Phone: No Panel Informationon 04-29 Total Iron Binding Capacity 339 ug/dL 250-[address] [facility] Work Phone: Platelets bldon 04-29-2022 Platelets (Bld) [#/Vol] 241 10*3/uL 150-[address] [facility] Work Phone: Serum or plasma ferritin bryce surement (mass/volume)on 04-29-2022 Ferritin [Mass/Vol] 45 ng/mL 8-252 [facility] Work Phone: Serum or plasma iron saturat ion measurement (mass fraction)on 04-29-2022 Iron saturation [Mass fraction] 8.8 % 15.0-55.[address] [facility] Work Phone: [phone] Absolute lymphocyte counton 04-23-2022 Lymphocytes Auto (Unsp spec) [#/Vol] 1.45 10*3/uL 0.83-4.[address] [facility] Work Phone: Basophil percentageon 2021 Basophils/100 WBC (Bld) 0.2 % 0-1 [facility] Work Phone: Chloride [Moles/Vol] 110 mmol/L 98-[address] [facility] Work Phone: Eosinophils/100 WBC (Bld) 1.6 % 0-[address] [facility] Work Phone: Glucose [Mass/Vol] 103 mg/dL 74-106 [facility] Work Phone: Comment on above: Fasting Glucose resu lt from 100 to 125 mg/dL suggests IMPAIRED HOMEOSTASIS per A.D.A. criteria. Neutrophils (Bld) [#/Vol] 2.9 10*3/uL 2.0-7.[address] [facility] Work Phone: Neutrophils/100 WBC (Bld) 59.0 % 47-[address] [facility] Work Phone: Potassium [Moles/Vol] 3.9 mmol/L 3.5-5.1 [facility] Work Phone: Sodium [Moles/Vol] 143 mmol/L 136-[facility]: WBC (Bld) [#/Vol] 5.0 10*3/uL 4.4-11.0 [facility] Work Phone: Blood erythrocytes count (nu mber/volume)on 04-23-2022 RBC (Bld) [#/Vol] 4.42 10*6/uL 4.2-5.4 [facility]: Blood hemoglobin measurement (mass/volume)on 04-23-2022 Hemoglobin (Bld) [Mass/Vol] 13.2 g/dL 12.0-15.[address] [facility] Work Phone: Blood lymphocytes/100 leukoc yteson 04-23-2022 Lymphocytes/100 WBC (Bld) 29.3 % 19-[address] [facility] Work Phone: Blood monocytes/100 leukocyt eson 04-23-2022 Monocytes/100 WBC (Bld) 9.5 % 0-10 [facility] Work Phone: Blood platelet mean volumeon 04-23-2022 Platelet mean volume (Bld) [Entitic vol] 9.1 fL 6.2-12.[address] [facility] Work Phone: Determination of erythrocyte mean corpuscular volume (MCV)on 04-23-2022 MCV (RBC) [Entitic vol] 97.7 fL 81-99 [facility] Work Phone: Hematocrit Auto (Bld) [Volum e fraction]on 04-23-2022 Hematocrit (Bld) [Volume fraction] 43.2 % 37-[address] [facility] Work Phone: Laboratory - Chemistry and C hemistry - challengeon 04-23-2022 CO2 [Moles/Vol] 27.0 mmol/L 21.0-32.[address] [facility] Work Phone: Urea nitrogen/Creatinine [Mass ratio] 28.1 mg/mg 10-[address] [facility] Work Phone: Laboratory - Hematology and Cell countson 04-23-2022 Anisocytosis Ql (Bld) 1+ [facility] Work Phone: Erythrocyte distribution width (RBC) [Entitic vol] 67.4 fL 35.1-43.9 [facility] Work Phone: Erythrocyte distribution width (RBC) [Ratio] 19.0 % 11.6-14.[address] [facility] Work Phone: Immature granulocytes/100 WBC (Bld) 0.400 % 0.0-0.[address] [facility] Work Phone: Comment on above: IG% - Immature Granu locytes (promyelocytes, myelocytes and metamyelocytes) > 1% indicates that a LEFT SHIFT is Present. MCH (RBC) [Entitic mass] 29.9 pg 27.0-32.[address] [facility] Work Phone: Nucleated RBC/100 WBC (Bld) [Ratio] 0 % 0-[address] [facility] Work Phone: MCHC Auto (RBC) [Mass/Vol]on 04-23-2022 MCHC (RBC) [Mass/Vol] 30.6 g/dL 32-36 [facility] Work Phone: No Panel Informationon 04-23 Estimated Creatinine Clearance Calc 43.18 ml/min [facility] Work Phone: Estimated GFR (MDRD) Amer 147 mL/min >[address] [facility] Work Phone: Comment on above: GFR Calc Estimated GFR (MDRD) Non-Af Amer 121 mL/min >[address] [facility] Work Phone: Comment on above: Non- GFR Calc Platelets bldon 04-23-2022 Platelets (Bld) [#/Vol] 252 10*3/uL 150-[address] [facility] Work Phone: Serum or plasma calcium joaquin urement (mass/volume)on 04-23-2022 Calcium [Mass/Vol] 9.3 mg/dL 8.5-10.1 [facility] Work Phone: [phone] Serum or plasma creatinine m easurement (mass/volume)on 04-23-2022 Creatinine [Mass/Vol] 0.53 mg/dL 0.55-[facility].02 [facility]: Comment on above: The validity of the calculated GFR & GFRAA in patients over 70 years has not been determined. Clinical correlation is essential. Serum or plasma urea nitroge n measurement (mass/volume)on 04-23-2022 Urea nitrogen [Mass/Vol] 15 mg/dL 7-[address] [facility] Work Phone: Thin prep Papanicolaou smear with manual screeningon 04-23-2022 Thin prep Papanicolaou smear with manual screening 6 5-[address] [facility] Work Phone: CNOVon 04-18-2022 CNOV Normal [facility] CT BRAIN WO IVCONon 04-18-[address] BRAIN WO IVCON Normal [facility] Absolute lymphocyte counton 04-17-2022 Lymphocytes Auto (Unsp spec) [#/Vol] 2.16 10*3/uL 0.83-4.[address] [facility] Work Phone: [phone] Basophil percentageon 2021 Basophils/100 WBC (Bld) 0.6 % 0-1 [facility] Work Phone: Eosinophils/100 WBC (Bld) 1.3 % 0-[address] [facility] Work Phone: [phone] Neutrophils (Bld) [#/Vol] 3.5 10*3/uL 2.0-7.[address] [facility] Work Phone: Neutrophils/100 WBC (Bld) 55.8 % 47-[address] [facility] Work Phone: WBC (Bld) [#/Vol] 6.3 10*3/uL 4.4-11.0 [facility] Work Phone: Blood erythrocytes count (nu mber/volume)on 04-17-2022 RBC (Bld) [#/Vol] 4.03 10*6/uL 4.2-5.4 [facility] Work [facility]: Blood hemoglobin measurement (mass/volume)on 04-17-2022 Hemoglobin (Bld) [Mass/Vol] 12.1 g/dL 12.0-15.[address] [facility] Work Phone: Blood lymphocytes/100 leukoc yteson 04-17-2022 Lymphocytes/100 WBC (Bld) 34.1 % 19-[address] [facility] Work Phone: Blood manual differential co mment interpretation (narrative result)on 04-17-2022 Manual differential comment Kuldip (Bld) [Interp] SCANNED [facility] Work Phone: Blood monocytes/100 leukocyt eson 04-17-2022 Monocytes/100 WBC (Bld) 7.9 % 0-10 [facility] Work Phone: Blood platelet adequacy dete ction by light microscopyon 04-17-2022 Platelets LM Ql (Bld) ADEQUATE ADEQ [facility] Work Phone: Blood platelet mean volumeon 04-17-2022 Platelet mean volume (Bld) [Entitic vol] 9.9 fL 6.2-12.[address] [facility] Work Phone: Blood platelet morphology de termination (nominal result)on 04-17-2022 Platelet morphology finding Nom (Bld) CLUMPED [facility] Work Phone: Determination of erythrocyte mean corpuscular volume (MCV)on 04-17-2022 MCV (RBC) [Entitic vol] 100.5 fL 81-99 [facility] Work Phone: Hematocrit Auto (Bld) [Volum e fraction]on 04-17-2022 Hematocrit (Bld) [Volume fraction] 40.5 % 37-[address] [facility] Work Phone: Laboratory - Hematology and Cell countson 04-17-2022 Anisocytosis Ql (Bld) 1+ [facility] Work Phone: Erythrocyte distribution width (RBC) [Entitic vol] 69.0 fL 35.1-43.9 [facility] Work Phone: Erythrocyte distribution width (RBC) [Ratio] 18.4 % 11.6-14.[address] [facility] Work Phone: Immature granulocytes/100 WBC (Bld) 0.300 % 0.0-0.[address] [facility] Work Phone: Comment on above: IG% - Immature Granu locytes (promyelocytes, myelocytes and metamyelocytes) > 1% indicates that a LEFT SHIFT is Present. MCH (RBC) [Entitic mass] 30.0 pg 27.0-32.[address] [facility] Work Phone: Nucleated RBC/100 WBC (Bld) [Ratio] 0 % 0-[address] [facility] Work Phone: MCHC Auto (RBC) [Mass/Vol]on 04-17-2022 MCHC (RBC) [Mass/Vol] 29.9 g/dL 32-36 [facility] Work Phone: Macrocytes detectionon 04-17 Macrocytes Ql (Bld) 1+ [facility] Work Phone: Platelets bldon 04-17-2022 Platelets (Bld) [#/Vol] 274 10*3/uL 150-[address] [facility] Work Phone: Absolute lymphocyte counton 04-16-2022 Lymphocytes Auto (Unsp spec) [#/Vol] 2.31 10*3/uL 0.83-4.[address] [facility] Work Phone: Basophil percentageon 2021 Basophils/100 WBC (Bld) 0.9 % 0-1 [facility] Work Phone: Eosinophils/100 WBC (Bld) 1.6 % 0-[address] [facility] Work Phone: Neutrophils (Bld) [#/Vol] 3.8 10*3/uL 2.0-7.[address] [facility] Work Phone: Neutrophils/100 WBC (Bld) 55.2 % 47-[address] [facility] Work Phone: WBC (Bld) [#/Vol] 6.9 10*3/uL 4.4-11.0 [facility] Work Phone: Blood erythrocytes count (nu mber/volume)on 04-16-2022 RBC (Bld) [#/Vol] 3.84 10*6/uL 4.2-5.4 [facility] Work Phone: Blood hemoglobin measurement (mass/volume)on 04-16-2022 Hemoglobin (Bld) [Mass/Vol] 11.5 g/dL 12.0-15.[address] [facility] Work Phone: Blood lymphocytes/100 leukoc yteson 04-16-2022 Lymphocytes/100 WBC (Bld) 33.4 % 19-[address] [facility] Work Phone: Blood monocytes/100 leukocyt eson 04-16-2022 Monocytes/100 WBC (Bld) 8.5 % 0-10 [facility] Work Phone: Blood platelet mean volumeon 04-16-2022 Platelet mean volume (Bld) [Entitic vol] 8.7 fL 6.2-12.[address] [facility] Work Phone: Determination of erythrocyte mean corpuscular volume (MCV)on 04-16-2022 MCV (RBC) [Entitic vol] 97.7 fL 81-99 [facility] Work Phone: Hematocrit Auto (Bld) [Volum e fraction]on 04-16-2022 Hematocrit (Bld) [Volume fraction] 37.5 % 37-[address] [facility] Work Phone: Laboratory - Hematology and Cell countson 04-16-2022 Erythrocyte distribution width (RBC) [Entitic vol] 63.8 fL 35.1-43.9 [facility] Work Phone: Erythrocyte distribution width (RBC) [Ratio] 17.9 % 11.6-14.[address] [facility] Work Phone: Immature granulocytes/100 WBC (Bld) 0.400 % 0.0-0.[address] [facility] Work Phone: [phone] Comment on above: IG% - Immature Granu locytes (promyelocytes, myelocytes and metamyelocytes) > 1% indicates that a LEFT SHIFT is Present. MCH (RBC) [Entitic mass] 29.9 pg 27.0-32.[address] [facility] Work Phone: Nucleated RBC/100 WBC (Bld) [Ratio] 0 % 0-[address] [facility] Work Phone: MCHC Auto (RBC) [Mass/Vol]on 04-16-2022 MCHC (RBC) [Mass/Vol] 30.7 g/dL 32-36 [facility] Work Phone: Platelets bldon 04-16-2022 Platelets (Bld) [#/Vol] 360 10*3/uL 150-[address] [facility] Work Phone: Basophil percentageon 2021 Chloride [Moles/Vol] 105 mmol/L 98-107 [facility] Work Phone: Glucose [Mass/Vol] 97 mg/dL 74-106 [facility] Work Phone: Potassium [Moles/Vol] 3.9 mmol/L 3.5-5.1 [facility] Work Phone: Sodium [Moles/Vol] 138 mmol/L 136-145 [facility] Work Phone: Laboratory - Chemistry and C hemistry - challengeon 04-15-2022 CO2 [Moles/Vol] 25.0 mmol/L 21.0-32.[address] [facility] Work Phone: Urea nitrogen/Creatinine [Mass ratio] 41.9 mg/mg 10-[address] [facility] Work Phone: No Panel Informationon 04-15 Estimated Creatinine Clearance Calc 43.18 ml/min [facility] Work Phone: Estimated GFR (MDRD) Amer 188 mL/min >[address] [facility] Work Phone: Comment on above: GFR Calc Estimated GFR (MDRD) Non-Af Amer 156 mL/min >[address] [facility] Work Phone: Comment on above: Non- GFR Calc Serum or plasma calcium joaquin urement (mass/volume)on 04-15-2022 Calcium [Mass/Vol] 8.6 mg/dL 8.5-10.1 [facility] Work Phone: Serum or plasma creatinine m easurement (mass/volume)on 04-15-2022 Creatinine [Mass/Vol] 0.43 mg/dL 0.55-1.02 [facility] Work Phone: Comment on above: The validity of the calculated GFR & GFRAA in patients over 70 years has not been determined. Clinical correlation is essential. Serum or plasma urea nitroge n measurement (mass/volume)on 04-15-2022 Urea nitrogen [Mass/Vol] 18 mg/dL 7-[address] [facility] Work Phone: Thin prep Papanicolaou smear with manual screeningon 04-15-2022 Thin prep Papanicolaou smear with manual screening 8 5-[address] [facility] Work Phone: Glucose Glucometer (BldC) [M ass/Vol]on 04-11-2022 Glucose [Mass/Vol] 99 mg/dL 74-106 [facility] Work Phone: Comment on above: MANAGEMENT OF PATIEN T CARE PER NURSING PROTOCOL CNPNon 04-10-2022 CNPN Normal [facility] Basophil percentageon 2021 Basophil percentage >100 SEEN /hpf 0-5 [facility] Work Phone: Bilirubin Test strip Ql (U)o n 04-09-2022 Bilirubin Ql (U) Negative Negative [facility] Work Phone: Ketones Test strip Ql (U)on 04-09-2022 Ketones Ql (U) Negative Negative [facility] Work Phone: Mucus LM Ql (Urine sed)on Mucus Ql (Urine sed) 0 SEEN /hpf [facility] Work Phone: Nitrite Test strip Ql (U)on 04-09-2022 Nitrite Ql (U) Positive Negative [facility] Work Phone: Protein Test strip Ql (U)on 04-09-2022 Protein Ql (U) 15 mg/dl Negative [facility] Work Phone: Squamous epithelial cells de tection in urine sediment by light microscopyon 04-09-2022 Epithelial cells.squamous LM Ql (Urine sed) 0 SEEN /hpf 5-[address] [facility] Work Phone: Urine blood detectionon 03-19 RBC Ql (U) 10 /ul Negative [facility] Work Phone: RBC Ql (U) 5-10 SEEN /hpf 0-[address] [facility] Work Phone: Urine clarityon 04-09-2022 Clarity (U) Sl. Cloudy Clear [facility] Work Phone: Urine color determinationon 04-09-2022 Color (U) Yellow Yellow [facility] Work Phone: Urine glucose detectionon Glucose Ql (U) 1000 mg/dl Normal [facility] Work Phone: Urine leukocyte esterase det ection by dipstickon 04-09-2022 Leukocyte esterase Test strip Ql (U) 500 /ul Negative [facility] Work Phone: Urine pHon 04-09-2022 pH (U) 6.0 [pH] 5.0 - 8.[address] [facility] Work Phone: Urine sediment bacteria coun t by microscopy (number/high power field)on 04-09-2022 Bacteria LM.HPF (Urine sed) [#/Area] 2 /[HPF] None Seen [facility] Work Phone: Urine sediment leukocyte susan t count by microscopy (number/low power field)on 04-09-2022 WBC casts LM.LPF (Urine sed) [#/Area] 0-5 SEEN /lpf None Seen [facility] Work Phone: Urine specific gravity measu rementon 04-09-2022 Specific gravity (U) [Rel density] 1.020 1.002-1.[address] [facility] Work Phone: Urobilinogen Auto test strip Ql (U)on 04-09-2022 Urobilinogen Ql (U) Normal mg/dl Normal [facility] Work Phone: Basophil percentageon 2021 Basophil percentage 2.9 mg/dL 2.5-4.9 [facility] Work Phone: Bilirubin [Mass/Vol] 0.40 mg/dL 0.20-1.00 [facility] Work Phone: Comment on above: For patients on eltr ombopag therapy, use of Dimension Bryant TBIL is not recommended. Protein [Mass/Vol] 6.7 g/dL 6.4-8.2 [facility] Work Phone: Iron measurement (mass/mass) on 04-06-2022 Iron (Unsp spec) [Mass/Mass] 42 ug/dL 50-[address] [facility] Work Phone: Laboratory - Chemistry and C hemistry - challengeon 04-06-2022 ALP [Catalytic activity/Vol] 96 U/L 45-[address] [facility] Work Phone: ALT [Catalytic activity/Vol] 25 U/L 13-[address] [facility] Work Phone: Globulin (S) [Mass/Vol] 4.1 g/dL 2.2-4.2 [facility] Work Phone: Magnesium [Mass/Vol] 2.0 mg/dL 1.6-2.6 [facility] Work Phone: No Panel Informationon 04-06 Total Iron Binding Capacity 270 ug/dL 250-[address] [facility] Work Phone: Serum or plasma albumin joaquin urement (mass/volume)on 04-06-2022 Albumin [Mass/Vol] 2.6 g/dL 3.2-5.0 [facility] Work Phone: Serum or plasma albumin/glob ulin mass ratioon 04-06-2022 Albumin/Globulin [Mass ratio] 0.6 {ratio} 0.9-2.[address] [facility] Work Phone: Serum or plasma ferritin bryce surement (mass/volume)on 04-06-2022 Ferritin [Mass/Vol] 93 ng/mL 8-252 [facility] Work Phone: Serum or plasma iron saturat ion measurement (mass fraction)on 04-06-2022 Iron saturation [Mass fraction] 15.6 % 15.0-55.[address] [facility] Work Phone: Thin prep Papanicolaou smear with manual screeningon 04-06-2022 Thin prep Papanicolaou smear with manual screening 12 U/L 15-[address] [facility] Work Phone: Whole blood hemoglobin A1c/t otal hemoglobin ratio (mass fraction)on 04-06-2022 HbA1c (Bld) [Mass fraction] 5.3 % 3.8-5.[address] [facility] Work Phone: Comment on above: Normal < 5.7 % Predi abetic 5.7 - 6.4 % Diabetic >or= 6.5 % Please note range changes. CASE MANAGEMon 04-05-2022 CASE MANAGEM Normal [facility] CASE MANAGEM Normal [facility] CNDSon 04-05-2022 CNDS Normal [facility] NUTRITIONon 04-05-2022 NUTRITION Normal [facility] THERAPY NTon 04-05-2022 THERAPY NT Normal [facility] ALLIED HEALTHon 04-04-2022 ALLIED HEALTH Normal [facility] CONSULTon 04-04-2022 CONSULT Normal [facility] THERAPY NTon 04-04-2022 THERAPY NT Normal [facility] XR HUMERUS 2V AP/LAT RTon XR HUMERUS 2V AP/LAT RT Normal [facility] CBC W Auto Differential pane l (Bld)on 04-03-2022 Basophils (Bld) [#/Vol] 0.03 10*3/uL Normal <0.11 [facility] Comment on above: Order Comment: Speci men Type: BLOOD SPECIMENOrdering Facility: [facility] Address: [address] [place] [address] Performed By: #### 5 7021-8 ####[facility] LABORATORYCLIA [id number] [place] [address] [place] Basophils/100 WBC (Bld) 0.4 % Normal [facility] Comment on above: Order Comment: Speci men Type: BLOOD SPECIMENOrdering Facility: [facility] Address: [address] [place] [address] Performed By: #### 5 7021-8 ####[facility] LABORATORYCLIA [id number] [place] [address] [place] Differential cell count method Nom (Bld) Auto Normal [facility] Comment on above: Order Comment: Speci men Type: BLOOD SPECIMENOrdering Facility: [facility] Address: [address] [place] [address] Performed By: #### 5 7021-8 ####[facility] LABORATORYCLIA [id number] [place] [address] [place] Eosinophils (Bld) [#/Vol] 0.08 10*3/uL Normal <0.46 [facility] Comment on above: Order Comment: Speci men Type: BLOOD SPECIMENOrdering Facility: [facility] Address: [address] [place] [address] Performed By: #### 5 7021-8 ####[facility] LABORATORYCLIA [id number] [place] [address] [place] Eosinophils/100 WBC (Bld) 1.0 % Normal [facility] Comment on above: Order Comment: Speci men Type: BLOOD SPECIMENOrdering Facility: [facility] Address: [address] [place] [address] Performed By: #### 5 7021-8 ####[facility] LABORATORYCLIA [id number] [address] Erythrocyte distribution width (RBC) [Ratio] 18.5 % High 11.5-15.0 [facility] Comment on above: Order Comment: Speci men Type: BLOOD SPECIMENOrdering Facility: [facility] Address: [address] [place] [address] Performed By: #### 5 7021-8 ####[facility] LABORATORYCLIA [id number] [address] Hematocrit (Bld) [Volume fraction] 32.8 % Low 36.0-46.0 [facility] Comment on above: Order Comment: Speci men Type: BLOOD SPECIMENOrdering Facility: [facility] Address: [address] [place] [address] Performed By: #### 5 7021-8 ####[facility] LABORATORYCLIA [id number] [address] Hemoglobin (Bld) [Mass/Vol] 10.2 g/dL Low 11.5-15.5 [facility] Comment on above: Order Comment: Speci men Type: BLOOD SPECIMENOrdering Facility: [facility] Address: [address] [place] [address] Performed By: #### 5 7021-8 ####[facility] LABORATORYCLIA [id number] [address] IMMATURE GRAN % 0.4 % Normal [facility] Comment on above: Order Comment: Speci men Type: BLOOD SPECIMENOrdering Facility: [facility] Address: [address] [place] [address] Performed By: #### 5 7021-8 ####[facility] LABORATORYCLIA [id number] [address] IMMATURE GRAN ABS 0.03 k/uL Normal <0.10 [facility] Comment on above: Order Comment: Speci men Type: BLOOD SPECIMENOrdering Facility: [facility] Address: [address] [place] [address] Performed By: #### 5 7021-8 ####[facility] LABORATORYCLIA [id number] [address] OF [facility] Lymphocytes (Bld) [#/Vol] 1.51 10*3/uL Normal 1.00-4.0 0 [facility] Comment on above: Order Comment: Speci men Type: BLOOD SPECIMENOrdering Facility: [facility] Address: [address] [place] [address] Performed By: #### 5 7021-8 ####[facility] LABORATORYCLIA [id number] [address] Lymphocytes/100 WBC (Bld) 18.2 % Normal [facility] Comment on above: Order Comment: Speci men Type: BLOOD SPECIMENOrdering Facility: [facility] Address: [address] [place] [address] Performed By: #### 5 7021-8 ####[facility] LABORATORYCLIA [id number] [address] [place] MCH (RBC) [Entitic mass] 29.7 pg Normal 26.0-34.0 [facility] Comment on above: Order Comment: Speci men Type: BLOOD SPECIMENOrdering Facility: [facility] Address: [address] [place] [address] Performed By: #### 5 7021-8 ####[facility] LABORATORYCLIA [id number] [address] [place] MCHC (RBC) [Mass/Vol] 31.1 g/dL Normal 30.5-36.0 [facility] Comment on above: Order Comment: Speci men Type: BLOOD SPECIMENOrdering Facility: [facility] Address: [address] [place] [address] Performed By: #### 5 7021-8 ####[facility]ORATORYCLIA [id number] [address] [place] MCV (RBC) [Entitic vol] 95.6 fL Normal 80.0-100.0 [facility] Comment on above: Order Comment: Speci men Type: BLOOD SPECIMENOrdering Facility: [facility] Address: [address] [place] [address] Performed By: #### 5 7021-8 ####[facility] LABORATORYCLIA [id number] [address] [place] Monocytes (Bld) [#/Vol] 0.99 10*3/uL High <0.87 [facility] Comment on above: Order Comment: Speci men Type: BLOOD SPECIMENOrdering Facility: [facility] Address: [address] [place] [address] Performed By: #### 5 7021-8 ####[facility] LABORATORYCLIA [id number] [address] Monocytes/100 WBC (Bld) 11.9 % Normal [facility] Comment on above: Order Comment: Speci men Type: BLOOD SPECIMENOrdering Facility: [facility] Address: [address] [place] [address] Performed By: #### 5 7021-8 ####[facility] LABORATORYCLIA [id number] [address] [place] Neutrophils (Bld) [#/Vol] 5.66 10*3/uL Normal 1.45-7.5 0 [facility] Comment on above: Order Comment: Speci men Type: BLOOD SPECIMENOrdering Facility: [facility] Address: [address] [place] [address] Performed By: #### 5 7021-8 ####[facility] LABORATORYCLIA [id number] [address] [place] Neutrophils/100 WBC (Bld) 68.1 % Normal [facility] Comment on above: Order Comment: Speci men Type: BLOOD SPECIMENOrdering Facility: [facility] Address: [address] [place] [address] Performed By: #### 5 7021-8 ####[facility] LABORATORYCLIA [id number] [address] Nucleated RBC (Bld) [#/Vol] 10*3/uL Normal <0.01 [facility] Comment on above: Order Comment: Speci men Type: BLOOD SPECIMENOrdering Facility: [facility] Address: [address] [place] [address] Performed By: #### 5 7021-8 ####[facility] LABORATORYCLIA [id number] [address] OF [facility] Nucleated RBC/100 WBC (Bld) [Ratio] 0.0 /100 WBC Normal [facility] Comment on above: Order Comment: Speci men Type: BLOOD SPECIMENOrdering Facility: [facility] Address: [address] [place] [address] Performed By: #### 5 7021-8 ####[facility] LABORATORYCLIA [id number] [address] [place] Platelet mean volume (Bld) [Entitic vol] 9.6 fL Normal 9.0-12.7 [facility] Comment on above: Order Comment: Speci men Type: BLOOD SPECIMENOrdering Facility: [facility] Address: [address] [place] [address] Performed By: #### 5 7021-8 ####[facility] LABORATORYCLIA [id number] [address] [place] Platelets (Bld) [#/Vol] 396 10*3/uL Normal 150-400 [facility] Comment on above: Order Comment: Speci men Type: BLOOD SPECIMENOrdering Facility: [facility] Address: [address] [place] [address] Performed By: #### 5 7021-8 ####[facility] LABORATORYCLIA [id number] [address] [place] RBC (Bld) [#/Vol] 3.43 10*6/uL Low 3.90-5.20 [facility] Comment on above: Order Comment: Speci men Type: BLOOD SPECIMENOrdering Facility: [facility] Address: [address] [place] [address] Performed By: #### 5 7021-8 ####[facility] LABORATORYCLIA [id number] [address] WBC (Bld) [#/Vol] 8.30 10*3/uL Normal 3.70-11.00 [facility] Comment on above: Order Comment: Speci men Type: BLOOD SPECIMENOrdering Facility: [facility] Address: [address] [place] [address] Performed By: #### 5 7021-8 ####[facility] LABORATORYCLIA [id number] [address] Comprehensive metabolic 2000 panelon 04-03-2022 Albumin [Mass/Vol] 3.5 g/dL Low 3.9-4.9 [facility] Comment on above: Order Comment: Speci men Type: BLOOD SPECIMENOrdering Facility: [facility] Address: [address] [place] [address] Performed By: #### 2 4323-8 ####[facility] LABORATORYCLIA [id number] [address] ALP [Catalytic activity/Vol] 77 U/L Normal 34-123 [facility] Comment on above: Order Comment: Speci men Type: BLOOD SPECIMENOrdering Facility: [facility] Address: [address] [place] [address] Performed By: #### 2 4323-8 ####[facility] LABORATORYCLIA [id number] [address] ALT With P-5'-P [Catalytic activity/Vol] 22 U/L Normal 7-38 [facility] Comment on above: Order Comment: Speci men Type: BLOOD SPECIMENOrdering Facility: [facility] Address: [address] [place] [address] Performed By: #### 2 4323-8 ####[facility] LABORATORYCLIA [id number] [address] STATES [facility] Anion gap [Moles/Vol] 11 mmol/L Normal 9-18 [facility] Comment on above: Order Comment: Speci men Type: BLOOD SPECIMENOrdering Facility: [facility] Address: [address] [place] [address] Performed By: #### 2 4323-8 ####[facility] LABORATORYCLIA [id number] [place] [address] [place] AST With P-5'-P [Catalytic activity/Vol] Normal [facility] Comment on above: Order Comment: Speci men Type: BLOOD SPECIMENOrdering Facility: [facility] Address: [address] [place] [address] Result Comment: Unab le to assay due to interference from hemolysis. Suggest reorder as clinically indicated. Performed By: #### 2 4323-8 ####[facility] LABORATORYCLIA [id number] [address] [place] Bilirubin [Mass/Vol] 0.4 mg/dL Normal 0.2-1.3 [facility] Comment on above: Order Comment: Speci men Type: BLOOD SPECIMENOrdering Facility: [facility] Address: [address] [place] [address] Performed By: #### 2 4323-8 ####[facility] LABORATORYCLIA [id number] [address] Calcium [Mass/Vol] 9.4 mg/dL Normal 8.5-10.2 [facility] Comment on above: Order Comment: Speci men Type: BLOOD SPECIMENOrdering Facility: [facility] Address: [address] [place] [address] Performed By: #### 2 4323-8 ####[facility] LABORATORYCLIA [id number] [address] [place] Chloride [Moles/Vol] 107 mmol/L High 97-105 [facility] Comment on above: Order Comment: Speci men Type: BLOOD SPECIMENOrdering Facility: [facility] Address: [address] [place] [address] Performed By: #### 2 4323-8 ####[facility] LABORATORYCLIA [id number] [address] [place] CO2 [Moles/Vol] 27 mmol/L Normal 22-30 [facility] Comment on above: Order Comment: Speci men Type: BLOOD SPECIMENOrdering Facility: [facility] Address: [address] [place] [address] Performed By: #### 2 4323-8 ####[facility]INGTONCLIA [id number] [address] Creatinine [Mass/Vol] 0.36 mg/dL Low 0.58-0.96 [facility] Comment on above: Order Comment: Speci men Type: BLOOD SPECIMENOrdering Facility: [facility] Address: [address] [place] [address] Performed By: #### 2 4323-8 ####[facility] LABORATORYCLIA [id number] [address] ESTIMATED GLOMERULAR FILTRATION RATE 111 mL/min/1.73m??? Normal >=60 [facility] Comment on above: Order Comment: Speci men Type: BLOOD SPECIMENOrdering Facility: [facility] Address: [address] [place] [address] Result Comment: Ameena mated Glomerular Filtration Rate [...] actual GFR. Performed By: #### 2 4323-8 ####[facility] LABORATORYCLIA [id number] [address] Glucose [Mass/Vol] 138 mg/dL High 74-99 [facility] Comment on above: Order Comment: Speci men Type: BLOOD SPECIMENOrdering Facility: [facility] Address: [address] [place] [address] Result Comment: The [place] [employer] (ADA) provides guidance for cutoff [...] Standards of Medical Care in Diabetes 2016, [place] [employer]. Diabetes Care. 2016.39(Suppl 1). Performed By: #### 2 4323-8 ####[facility] LABORATORYCLIA [id number] [place] [address] [place] Potassium [Moles/Vol] 4.2 mmol/L Normal 3.7-5.1 [facility] Comment on above: Order Comment: Lauren men Type: BLOOD SPECIMENOrdering Facility: [facility] Address: [address] [place] [address] Performed By: #### 2 4323-8 ####[facility] LABORATORYCLIA [id number] [place] [address] [place] Protein [Mass/Vol] 6.5 g/dL Normal 6.3-8.0 [facility] Comment on above: Order Comment: Speci men Type: BLOOD SPECIMENOrdering Facility: [facility] Address: [address] [place] [address] Performed By: #### 2 4323-8 ####[facility] LABORATORYCLIA [id number] [place] [address] [place] Sodium [Moles/Vol] 145 mmol/L High 136-144 [facility] Comment on above: Order Comment: Speci men Type: BLOOD SPECIMENOrdering Facility: [facility] Address: [address] [place] [address] Performed By: #### 2 4323-8 ####[facility] LABORATORYCLIA [id number] [address] [place] Urea nitrogen [Mass/Vol] 16 mg/dL Normal 7-21 [facility] Comment on above: Order Comment: Speci men Type: BLOOD SPECIMENOrdering Facility: [facility] Address: [address] [place] [address] Performed By: #### 2 4323-8 ####[facility] LABORATORYCLIA [id number] [address] [place] THERAPY NTon 04-03-2022 THERAPY NT Normal [facility] THERAPY NT Normal [facility] THERAPY NT Normal [facility] US DVT UPPER BILon US DVT UPPER JOSE Normal [facility] CASE MANAGEMon 04-02-2022 CASE MANAGEM Normal [facility] CBC W Auto Differential pane l (Bld)on 04-02-2022 Basophils (Bld) [#/Vol] 0.04 10*3/uL Normal <0.11 [facility] Comment on above: Order Comment: Speci men Type: BLOOD SPECIMENOrdering Facility: [facility] Address: [address] [place] [address] Performed By: #### 5 7021-8 ####[facility] LABORATORYCLIA [id number] [address] [place] Basophils/100 WBC (Bld) 0.5 % Normal [facility] Comment on above: Order Comment: Speci men Type: BLOOD SPECIMENOrdering Facility: [facility] Address: [address] [place] [address] Performed By: #### 5 7021-8 ####[facility] LABORATORYCLIA [id number] [address] [place] Differential cell count method Nom (Bld) Auto Normal [facility] Comment on above: Order Comment: Speci men Type: BLOOD SPECIMENOrdering Facility: [facility] Address: [address] [place] [address] Performed By: #### 5 7021-8 ####[facility] LABORATORYCLIA [id number] [address] Eosinophils (Bld) [#/Vol] 0.06 10*3/uL Normal <0.46 [facility] Comment on above: Order Comment: Speci men Type: BLOOD SPECIMENOrdering Facility: [facility] Address: [address] [place] [address] Performed By: #### 5 7021-8 ####[facility] LABORATORYCLIA [id number] [address] Eosinophils/100 WBC (Bld) 0.8 % Normal [facility] Comment on above: Order Comment: Speci men Type: BLOOD SPECIMENOrdering Facility: [facility] Address: [address] [place] [address] Performed By: #### 5 7021-8 ####[facility] LABORATORYCLIA [id number] [address] Erythrocyte distribution width (RBC) [Ratio] 19.0 % High 11.5-15.0 [facility] Comment on above: Order Comment: Speci men Type: BLOOD SPECIMENOrdering Facility: [facility] Address: [address] [place] [address] Performed By: #### 5 7021-8 ####[facility] LABORATORYCLIA [id number] [address] Hematocrit (Bld) [Volume fraction] 32.8 % Low 36.0-46.0 [facility] Comment on above: Order Comment: Speci men Type: BLOOD SPECIMENOrdering Facility: [facility] Address: [address] [place] [address] Performed By: #### 5 7021-8 ####[facility] [facility]ORATORYCLIA [id number] [address] [place] Hemoglobin (Bld) [Mass/Vol] 10.3 g/dL Low 11.5-15.5 [facility] Comment on above: Order Comment: Speci men Type: BLOOD SPECIMENOrdering Facility: [facility] Address: [address] [place] [address] Performed By: #### 5 7021-8 ####[facility]ORATORYCLIA [id number] [address] IMMATURE GRAN % 0.4 % Normal [facility] Comment on above: Order Comment: Speci men Type: BLOOD SPECIMENOrdering Facility: [facility] Address: [address] [place] [address] Performed By: #### 5 7021-8 ####[facility] LABORATORYCLIA [id number] [address] IMMATURE GRAN ABS 0.03 k/uL Normal <0.10 [facility] Comment on above: Order Comment: Speci men Type: BLOOD SPECIMENOrdering Facility: [facility] Address: [address] [place] [address] Performed By: #### 5 7021-8 ####[facility] LABORATORYCLIA [id number] [address] [place] Lymphocytes (Bld) [#/Vol] 1.27 10*3/uL Normal 1.00-4.0 0 [facility] Comment on above: Order Comment: Speci men Type: BLOOD SPECIMENOrdering Facility: [facility] Address: [address] [place] [address] Performed By: #### 5 7021-8 ####[facility]ORATORYCLIA [id number] [address] Lymphocytes/100 WBC (Bld) 17.3 % Normal [facility] Comment on above: Order Comment: Speci men Type: BLOOD SPECIMENOrdering Facility: [facility] Address: [address] [place] [address] Performed By: #### 5 7021-8 ####[facility]ORATORYCLIA [id number] [address] MCH (RBC) [Entitic mass] 29.9 pg Normal 26.0-34.0 [facility] Comment on above: Order Comment: Speci men Type: BLOOD SPECIMENOrdering Facility: [facility] Address: [address] [place] [address] Performed By: #### 5 7021-8 ####[facility] LABORATORYCLIA [id number] [address] [place] MCHC (RBC) [Mass/Vol] 31.4 g/dL Normal 30.5-36.0 [facility] Comment on above: Order Comment: Speci men Type: BLOOD SPECIMENOrdering Facility: [facility] Address: [address] [place] [address] Performed By: #### 5 7021-8 ####[facility] LABORATORYCLIA [id number] [address] MCV (RBC) [Entitic vol] 95.1 fL Normal 80.0-100.0 [facility] Comment on above: Order Comment: Speci men Type: BLOOD SPECIMENOrdering Facility: [facility] Address: [address] [place] [address] Performed By: #### 5 7021-8 ####[facility] LABORATORYCLIA [id number] [address] [place] Monocytes (Bld) [#/Vol] 0.91 10*3/uL High <0.87 [facility] Comment on above: Order Comment: Speci men Type: BLOOD SPECIMENOrdering Facility: [facility] Address: [address] [place] [address] Performed By: #### 5 7021-8 ####[facility] LABORATORYCLIA [id number] [address] Monocytes/100 WBC (Bld) 12.4 % Normal [facility] Comment on above: Order Comment: Speci men Type: BLOOD SPECIMENOrdering Facility: [facility] Address: [address] [address] Performed By: #### 5 7021-8 ####[facility] LABORATORYCLIA [id number] [address] [place] Neutrophils (Bld) [#/Vol] 5.05 10*3/uL Normal 1.45-7.5 0 [facility] Comment on above: Order Comment: Speci men Type: BLOOD SPECIMENOrdering Facility: [facility] Address: [address] [place] [address] Performed By: #### 5 7021-8 ####[facility] LABORATORYCLIA [id number] [address] Neutrophils/100 WBC (Bld) 68.6 % Normal [facility] Comment on above: Order Comment: Speci men Type: BLOOD SPECIMENOrdering Facility: [facility] Address: [address] [place] [address] Performed By: #### 5 7021-8 ####[facility] LABORATORYCLIA [id number] [address] [place] Nucleated RBC (Bld) [#/Vol] 10*3/uL Normal <0.01 [facility] Comment on above: Order Comment: Speci men Type: BLOOD SPECIMENOrdering Facility: [facility] Address: [address] [place] [address] Performed By: #### 5 7021-8 ####[facility] LABORATORYCLIA [id number] [address] [place] Nucleated RBC/100 WBC (Bld) [Ratio] 0.0 /100 WBC Normal [facility] Comment on above: Order Comment: Speci men Type: BLOOD SPECIMENOrdering Facility: [facility] Address: [address] [place] [address] Performed By: #### 5 7021-8 ####[facility] LABORATORYCLIA [id number] [address] [place] Platelet mean volume (Bld) [Entitic vol] 8.9 fL Low 9.0-12.7 [facility] Comment on above: Order Comment: Speci men Type: BLOOD SPECIMENOrdering Facility: [facility] Address: [address] [place] [address] Performed By: #### 5 7021-8 ####[facility] LABORATORYCLIA [id number] [address] [place] Platelets (Bld) [#/Vol] 332 10*3/uL Normal 150-400 [facility] Comment on above: Order Comment: Speci men Type: BLOOD SPECIMENOrdering Facility: [facility] Address: [address] [place] [address] Performed By: #### 5 7021-8 ####[facility] LABORATORYCLIA [id number] [address] STATES OF [facility] RBC (Bld) [#/Vol] 3.45 10*6/uL Low 3.90-5.20 [facility] Comment on above: Order Comment: Speci men Type: BLOOD SPECIMENOrdering Facility: [facility] Address: [address] [place] [address] Performed By: #### 5 7021-8 ####[facility] LABORATORYCLIA [id number] [address] WBC (Bld) [#/Vol] 7.36 10*3/uL Normal 3.70-11.00 [facility] Comment on above: Order Comment: Speci men Type: BLOOD SPECIMENOrdering Facility: [facility] Address: [address] [place] [address] Performed By: #### 5 7021-8 ####[facility]ORATORYCLIA [id number] [address] [place] CONSULTon 04-02-2022 CONSULT Normal [facility] CT BRAIN WO IVCONon 04-02-20 CT BRAIN WO IVCON Normal [facility] Comprehensive metabolic 2000 panelon 04-02-2022 Albumin [Mass/Vol] 3.8 g/dL Low 3.9-4.9 [facility] Comment on above: Order Comment: Speci men Type: BLOOD SPECIMENOrdering Facility: [facility] Address: [address] [address] Performed By: #### 2 4323-8, 2776-08, ####[facility] LABORATORYCLIA [id number] [address] STATES OF [facility] ALP [Catalytic activity/Vol] 80 U/L Normal 34-123 [facility] Comment on above: Order Comment: Speci men Type: BLOOD SPECIMENOrdering Facility: [facility] Address: [address] [place] [address] Performed By: #### 2 4323-8, 2776-08, ####[facility]ORATORYCLIA [id number] [address] STATES OF [facility] ALT With P-5'-P [Catalytic activity/Vol] 14 U/L Normal 7-38 [facility] Comment on above: Order Comment: Speci men Type: BLOOD SPECIMENOrdering Facility: [facility] Address: [address] [place] [address] Performed By: #### 2 4323-8, 2776-08, ####[facility] LABORATORYCLIA [id number] [address] STATES OF [facility] Anion gap [Moles/Vol] 11 mmol/L Normal 9-18 [facility] Comment on above: Order Comment: Speci men Type: BLOOD SPECIMENOrdering Facility: [facility] Address: [address] [address] Performed By: #### 2 4323-8, 2776-08, ####[facility]ORATORYCLIA [id number] [address] STATES OF [facility] AST With P-5'-P [Catalytic activity/Vol] 14 U/L Normal 13-35 [facility] Comment on above: Order Comment: Speci men Type: BLOOD SPECIMENOrdering Facility: [facility] Address: [address] [address] Performed By: #### 2 4323-8, 2776-08, ####[facility]ORATORYCLIA [id number] [place] [address] [place] Bilirubin [Mass/Vol] 0.4 mg/dL Normal 0.2-1.3 [facility] Comment on above: Order Comment: Speci men Type: BLOOD SPECIMENOrdering Facility: [facility] Address: [address] [place] [address] Performed By: #### 2 4323-8, 2776-08, ####[facility]ORATORYCLIA [id number] [place] [address] [place] Calcium [Mass/Vol] 9.3 mg/dL Normal 8.5-10.2 [facility] Comment on above: Order Comment: Speci men Type: BLOOD SPECIMENOrdering Facility: [facility] Address: [address] [place] [address] Performed By: #### 2 4323-8, 2776-08, ####[facility]ORATORYCLIA [id number] [place] [address] [place] Chloride [Moles/Vol] 108 mmol/L High 97-105 [facility] Comment on above: Order Comment: Speci men Type: BLOOD SPECIMENOrdering Facility: [facility] Address: [address] [place] [address] Performed By: #### 2 4323-8, 2776-08, ####[facility]ORATORYCLIA [id number] [place] [address] [place] CO2 [Moles/Vol] 27 mmol/L Normal 22-30 [facility] Comment on above: Order Comment: Speci men Type: BLOOD SPECIMENOrdering Facility: [facility] Address: [address] [place] [address] Performed By: #### 2 4323-8, 2776-08, ####[facility] LABORATORYCLIA [id number] [address] STATES OF [facility] Creatinine [Mass/Vol] 0.36 mg/dL Low 0.58-0.96 [facility] Comment on above: Order Comment: Lauren santana Type: BLOOD SPECIMENOrdering Facility: [facility] Address: [address] [place] [address] Performed By: #### 2 4323-8, 27702-15, ####[facility] [id number] [address] ESTIMATED GLOMERULAR FILTRATION RATE 111 mL/min/1.73m??? Normal >=60 [facility] Comment on above: Order Comment: Lauren santana Type: BLOOD SPECIMENOrdering Facility: [facility] Address: [address] [place] [address] Result Comment: Ameena mated Glomerular Filtration Rate [...] GFR. Performed By: #### 2 4323-8, 27702-15, ####[facility]ALTHIA [id number] [address] [place] Glucose [Mass/Vol] 131 mg/dL High 74-99 [facility] Comment on above: Order Comment: Lauren santana Type: BLOOD SPECIMENOrdering Facility: [facility] Address: [address] [place], [place] [address] Result Comment: The [place] [employer] (ADA) provides guidance for cutoff [...] Standards of Medical Care in Diabetes 2016, [place] [employer]. Diabetes Care. 2016.39(Suppl 1). Performed By: #### 2 4323-8, 2776-08, ####[facility]ORATORYCLIA [id number] [place] [address] [place] Potassium [Moles/Vol] 3.8 mmol/L Normal 3.7-5.1 [facility] Comment on above: Order Comment: Speci men Type: BLOOD SPECIMENOrdering Facility: [facility] Address: [address] [place] [address] Performed By: #### 2 4323-8, 2776-08, ####[facility]ORATORYCLIA [id number] [place] [address] [place] Protein [Mass/Vol] 6.7 g/dL Normal 6.3-8.0 [facility] Comment on above: Order Comment: Speci men Type: BLOOD SPECIMENOrdering Facility: [facility] Address: [address] [address] Performed By: #### 2 4323-8, 2776-08, ####[facility]ORATORYCLIA [id number] [address] [place] Sodium [Moles/Vol] 146 mmol/L High 136-144 [facility] Comment on above: Order Comment: Speci men Type: BLOOD SPECIMENOrdering Facility: [facility] Address: [address] [address] Performed By: #### 2 4323-8, 2776-08, ####[facility]ORATORYCLIA [id number] [address] [place] Urea nitrogen [Mass/Vol] 18 mg/dL Normal 7-21 [facility] Comment on above: Order Comment: Speci men Type: BLOOD SPECIMENOrdering Facility: [facility] Address: [address] [address] Performed By: #### 2 4323-8, 2777, ####[facility] LABORATORYCLIA [id number] [address] [place] Magnesium SerPl-mCncon 04-02 Magnesium [Mass/Vol] 2.0 mg/dL Normal 1.7-2.3 [facility] Comment on above: Order Comment: Speci men Type: BLOOD SPECIMENOrdering Facility: [facility] Address: [address] [place] [address] Performed By: #### 2 4323-8, 2777, ####[facility] LABORATORYCLIA [id number] [address] [place] Phosphate SerPl-mCncon 04-02 Phosphate [Mass/Vol] 3.2 mg/dL Normal 2.7-4.8 [facility] Comment on above: Order Comment: Speci men Type: BLOOD SPECIMENOrdering Facility: [facility] Address: [address] [place] [address] Performed By: #### 2 4323-8, 27702-15, ####[facility] LABORATORYCLIA [id number] [address] [place] ALLIED HEALTHon 04-01-2022 ALLIED HEALTH Normal [facility] CASE MANAGEMon 04-01-2022 CASE MANAGEM Normal [facility] CASE MGT INIT ASSESon 2021 CASE MGT INIT ASSES Normal [facility] CBC W Auto Differential pane l (Bld)on 04-01-2022 Basophils (Bld) [#/Vol] 0.03 10*3/uL Normal <0.11 [facility] Comment on above: Order Comment: Speci men Type: BLOOD SPECIMENOrdering Facility: [facility] Address: [address] [place] [address] Performed By: #### 5 7021-8 ####[facility] LABORATORYCLIA [id number] [address] STATES [facility] Basophils/100 WBC (Bld) 0.3 % Normal [facility] Comment on above: Order Comment: Speci men Type: BLOOD SPECIMENOrdering Facility: [facility] Address: [address] [place] [address] Performed By: #### 5 7021-8 ####[facility] LABORATORYCLIA [id number] [address] [place] Differential cell count method Nom (Bld) Auto Normal [facility] Comment on above: Order Comment: Speci men Type: BLOOD SPECIMENOrdering Facility: [facility] Address: [address] [place] [address] Performed By: #### 5 7021-8 ####[facility] LABORATORYCLIA [id number] [address] [place] Eosinophils (Bld) [#/Vol] 0.04 10*3/uL Normal <0.46 [facility] Comment on above: Order Comment: Speci men Type: BLOOD SPECIMENOrdering Facility: [facility] Address: [address] [place] [address] Performed By: #### 5 7021-8 ####[facility] LABORATORYCLIA [id number] [address] Eosinophils/100 WBC (Bld) 0.4 % Normal [facility] Comment on above: Order Comment: Speci men Type: BLOOD SPECIMENOrdering Facility: [facility] Address: [address] [place] [address] Performed By: #### 5 7021-8 ####[facility] LABORATORYCLIA [id number] [address] [place] Erythrocyte distribution width (RBC) [Ratio] 19.1 % High 11.5-15.0 [facility] Comment on above: Order Comment: Speci men Type: BLOOD SPECIMENOrdering Facility: [facility] Address: [address] [place] [address] Performed By: #### 5 7021-8 ####[facility] LABORATORYCLIA [id number] [address] Hematocrit (Bld) [Volume fraction] 32.6 % Low 36.0-46.0 [facility] Comment on above: Order Comment: Speci men Type: BLOOD SPECIMENOrdering Facility: [facility] Address: [address] [place] [address] Performed By: #### 5 7021-8 ####[facility] LABORATORYCLIA [id number] [address] Hemoglobin (Bld) [Mass/Vol] 10.2 g/dL Low 11.5-15.5 [facility] Comment on above: Order Comment: Speci men Type: BLOOD SPECIMENOrdering Facility: [facility] Address: [address] [place] [address] Performed By: #### 5 7021-8 ####[facility] LABORATORYCLIA [id number] [address] IMMATURE GRAN % 0.4 % Normal [facility] Comment on above: Order Comment: Speci men Type: BLOOD SPECIMENOrdering Facility: [facility] Address: [address] [place] [address] Performed By: #### 5 7021-8 ####[facility] LABORATORYCLIA [id number] [address] IMMATURE GRAN ABS 0.04 k/uL Normal <0.10 [facility] Comment on above: Order Comment: Speci men Type: BLOOD SPECIMENOrdering Facility: [facility] Address: [address] [place] [address] Performed By: #### 5 7021-8 ####[facility] LABORATORYCLIA [id number] [address] Lymphocytes (Bld) [#/Vol] 1.15 10*3/uL Normal 1.00-4.0 0 [facility] Comment on above: Order Comment: Speci men Type: BLOOD SPECIMENOrdering Facility: [facility] Address: [address] [place] [address] Performed By: #### 5 7021-8 ####[facility] LABORATORYCLIA [id number] [address] Lymphocytes/100 WBC (Bld) 11.9 % Normal [facility] Comment on above: Order Comment: Speci men Type: BLOOD SPECIMENOrdering Facility: [facility] Address: [address] [place] [address] Performed By: #### 5 7021-8 ####[facility] LABORATORYCLIA [id number] [address] MCH (RBC) [Entitic mass] 30.0 pg Normal 26.0-34.0 [facility] Comment on above: Order Comment: Speci men Type: BLOOD SPECIMENOrdering Facility: [facility] Address: [address] [place] [address] Performed By: #### 5 7021-8 ####[facility] LABORATORYCLIA [id number] [address] MCHC (RBC) [Mass/Vol] 31.3 g/dL Normal 30.5-36.0 [facility] Comment on above: Order Comment: Speci men Type: BLOOD SPECIMENOrdering Facility: [facility] Address: [address] [place] [address] Performed By: #### 5 7021-8 ####[facility] LABORATORYCLIA [id number] [address] MCV (RBC) [Entitic vol] 95.9 fL Normal 80.0-100.0 [facility] Comment on above: Order Comment: Speci men Type: BLOOD SPECIMENOrdering Facility: [facility] Address: [address] [place] [address] Performed By: #### 5 7021-8 ####[facility] LABORATORYCLIA [id number] [address] Monocytes (Bld) [#/Vol] 1.14 10*3/uL High <0.87 [facility] Comment on above: Order Comment: Speci men Type: BLOOD SPECIMENOrdering Facility: [facility] Address: [address] [place] [address] Performed By: #### 5 7021-8 ####[facility]ORATORYCLIA [id number] [address] [place] Monocytes/100 WBC (Bld) 11.8 % Normal [facility] Comment on above: Order Comment: Speci men Type: BLOOD SPECIMENOrdering Facility: [facility] Address: [address] [place] [address] Performed By: #### 5 7021-8 ####[facility]ORATORYCLIA [id number] [address] [place] Neutrophils (Bld) [#/Vol] 7.30 10*3/uL Normal 1.45-7.5 0 [facility] Comment on above: Order Comment: Speci men Type: BLOOD SPECIMENOrdering Facility: [facility] Address: [address] [place] [address] Performed By: #### 5 7021-8 ####[facility]ORATORYCLIA [id number] [address] OF [facility] Neutrophils/100 WBC (Bld) 75.2 % Normal [facility] Comment on above: Order Comment: Speci men Type: BLOOD SPECIMENOrdering Facility: [facility] Address: [address] [place] [address] Performed By: #### 5 7021-8 ####[facility]ORATORYCLIA [id number] [place] [address] [place] Nucleated RBC (Bld) [#/Vol] 10*3/uL Normal <0.01 [facility] Comment on above: Order Comment: Speci men Type: BLOOD SPECIMENOrdering Facility: [facility] Address: [address] [place] [address] Performed By: #### 5 7021-8 ####[facility]ORATORYCLIA [id number] [place] [address] [place] Nucleated RBC/100 WBC (Bld) [Ratio] 0.0 /100 WBC Normal [facility] Comment on above: Order Comment: Speci men Type: BLOOD SPECIMENOrdering Facility: [facility] Address: [address] [place] [address] Performed By: #### 5 7021-8 ####[facility] LABORATORYCLIA [id number] [place] [address] [place] Platelet mean volume (Bld) [Entitic vol] 9.3 fL Normal 9.0-12.7 [facility] Comment on above: Order Comment: Speci men Type: BLOOD SPECIMENOrdering Facility: [facility] Address: [address] [place] [address] Performed By: #### 5 7021-8 ####[facility] LABORATORYCLIA [id number] [address] [place] Platelets (Bld) [#/Vol] 341 10*3/uL Normal 150-400 [facility] Comment on above: Order Comment: Speci men Type: BLOOD SPECIMENOrdering Facility: [facility] Address: [address] [place] [address] Performed By: #### 5 7021-8 ####[facility] LABORATORYCLIA [id number] [place] [address] [place] RBC (Bld) [#/Vol] 3.40 10*6/uL Low 3.90-5.20 [facility] Comment on above: Order Comment: Speci men Type: BLOOD SPECIMENOrdering Facility: [facility] Address: [address] [place] [address] Performed By: #### 5 7021-8 ####[facility] LABORATORYCLIA [id number] [address] [place] WBC (Bld) [#/Vol] 9.70 10*3/uL Normal 3.70-11.00 [facility] Comment on above: Order Comment: Speci men Type: BLOOD SPECIMENOrdering Facility: [facility] Address: [address] [place] [address] Performed By: #### 5 7021-8 ####[facility] LABORATORYCLIA [id number] [address] OF [facility] CONSULT PROGon 04-01-2022 CONSULT PROG Normal [facility] CT BRAIN WO IVCONon 04-01-[address] BRAIN WO IVCON Normal [facility] Comprehensive metabolic 2000 panelon 04-01-2022 Albumin [Mass/Vol] 3.8 g/dL Low 3.9-4.9 [facility] Comment on above: Order Comment: Speci men Type: BLOOD SPECIMENOrdering Facility: [facility] Address: [address] [place] [address] Performed By: #### 2 4323-8, , 2776-08 ####[facility] LABORATORYCLIA [id number] [address] STATES OF [facility] ALP [Catalytic activity/Vol] 77 U/L Normal 34-123 [facility] Comment on above: Order Comment: Speci men Type: BLOOD SPECIMENOrdering Facility: [facility] Address: [address] [place] [address] Performed By: #### 2 4323-8, , 2776-08 ####[facility] LABORATORYCLIA [id number] [address] [place] ALT With P-5'-P [Catalytic activity/Vol] 9 U/L Normal 7-38 [facility] Comment on above: Order Comment: Speci men Type: BLOOD SPECIMENOrdering Facility: [facility] Address: [address] [place] [address] Performed By: #### 2 4323-8, , 2776-08 ####[facility] LABORATORYCLIA [id number] [address] [place] Anion gap [Moles/Vol] 14 mmol/L Normal 9-18 [facility] Comment on above: Order Comment: Speci men Type: BLOOD SPECIMENOrdering Facility: [facility] Address: [address] [place] [address] Performed By: #### 2 4323-8, , 2776-08 ####[facility] LABORATORYCLIA [id number] [place] [address] [place] With P-5'-P [Catalytic activity/Vol] 13 U/L Normal 13-35 [facility] Comment on above: Order Comment: Speci men Type: BLOOD SPECIMENOrdering Facility: [facility] Address: [address] [place] [address] Performed By: #### 2 4323-8, , 2776-08 ####[facility] LABORATORYCLIA [id number] [place] [address] [place] Bilirubin [Mass/Vol] 0.3 mg/dL Normal 0.2-1.3 [facility] Comment on above: Order Comment: Speci men Type: BLOOD SPECIMENOrdering Facility: [facility] Address: [address] [place] [address] Performed By: #### 2 4323-8, , 2776-08 ####[facility] LABORATORYCLIA [id number] [place] [address] [place] Calcium [Mass/Vol] 9.4 mg/dL Normal 8.5-10.2 [facility] Comment on above: Order Comment: Speci men Type: BLOOD SPECIMENOrdering Facility: [facility] Address: [address] [place] [address] Performed By: #### 2 4323-8, , 2776-08 ####[facility] LABORATORYCLIA [id number] [place] [address] [place] Chloride [Moles/Vol] 109 mmol/L High 97-105 [facility] Comment on above: Order Comment: Speci men Type: BLOOD SPECIMENOrdering Facility: [facility] Address: [address] [place] [address] Performed By: #### 2 4323-8, , 2776-08 ####[facility] LABORATORYCLIA [id number] [place] [address] [place] [facility] CO2 [Moles/Vol] 23 mmol/L Normal 22-30 [facility] Comment on above: Order Comment: Speci men Type: BLOOD SPECIMENOrdering Facility: [facility] Address: [address] [place] [address] Performed By: #### 2 4323-8, , 2776-08 ####[facility] LABORATORYCLIA [id number] [place] [address] [place] [facility] Creatinine [Mass/Vol] 0.36 mg/dL Low 0.58-0.96 [facility] Comment on above: Order Comment: Speci men Type: BLOOD SPECIMENOrdering Facility: [facility] Address: [address] [place] [address] Performed By: #### 2 4323-8, , 2776-08 ####[facility] [id number] [address] STATES OF [facility] ESTIMATED GLOMERULAR FILTRATION RATE 111 mL/min/1.73m??? Normal >=60 [facility] Comment on above: Order Comment: Speci men Type: BLOOD SPECIMENOrdering Facility: [facility] Address: [address] [place] [address] Result Comment: Ameena mated Glomerular Filtration Rate [...] actual GFR. Performed By: #### 2 4323-8, 25002-7, 2776-08 ####[facility] LABORATORYCLIA [id number] [place] [address] [place] [facility] Glucose [Mass/Vol] 156 mg/dL High 74-99 [facility] Comment on above: Order Comment: Lauren santana Type: BLOOD SPECIMENOrdering Facility: [facility] Address: [address] [place] [address] Result Comment: The [place] [employer] (ADA) provides guidance for cutoff [...] Standards of Medical Care in Diabetes 2016, [place] [employer]. Diabetes Care. 2016.39(Suppl 1). Performed By: #### 2 4323-8, , 2776-08 ####[facility] LABORATORYCLIA [id number] [place] [address] [place] Potassium [Moles/Vol] 3.6 mmol/L Low 3.7-5.1 [facility] Comment on above: Order Comment: Lauren santana Type: BLOOD SPECIMENOrdering Facility: [facility] Address: [address] [place] [address] Performed By: #### 2 4323-8, , 2776-08 ####[facility] LABORATORYCLIA [id number] [place] [address] [place] Protein [Mass/Vol] 6.7 g/dL Normal 6.3-8.0 [facility] Comment on above: Order Comment: Lauren santana Type: BLOOD SPECIMENOrdering Facility: [facility] Address: [address] [place] [address] Performed By: #### 2 4323-8, , 2776-08 ####[facility] LABORATORYCLIA [id number] [place] [address] [place] Sodium [Moles/Vol] 146 mmol/L High 136-144 [facility] Comment on above: Order Comment: Speci men Type: BLOOD SPECIMENOrdering Facility: [facility] Address: [address] [place] [address] Performed By: #### 2 4323-8, , 2776-08 ####[facility] LABORATORYCLIA [id number] [address] STATES [facility] Urea nitrogen [Mass/Vol] 19 mg/dL Normal 7-21 [facility] Comment on above: Order Comment: Speci men Type: BLOOD SPECIMENOrdering Facility: [facility] Address: [address] [place] [address] Performed By: #### 2 4323-8, , 2776-08 ####[facility] LABORATORYCLIA [id number] [address] Magnesium SerPl-mCncon 04-01 Magnesium [Mass/Vol] 2.2 mg/dL Normal 1.7-2.3 [facility] Comment on above: Order Comment: Speci men Type: BLOOD SPECIMENOrdering Facility: [facility] Address: [address] [place] [address] Performed By: #### 2 4328, , 2776-08 ####[facility] LABORATORYCLIA [id number] [address] OF [facility] NURSING PROGon 04-01-2022 NURSING PROG Normal [facility] NUTRITIONon 04-01-2022 NUTRITION Normal [facility] Phosphate SerPl-mCncon 04-01 Phosphate [Mass/Vol] 2.6 mg/dL Low 2.7-4.8 [facility] Comment on above: Order Comment: Speci men Type: BLOOD SPECIMENOrdering Facility: [facility] Address: [address] [place] [address] Performed By: #### 2 4323-8, , 2776-08 ####[facility] LABORATORYCLIA [id number] [address] [facility] THERAPY NTon 04-01-2022 THERAPY NT Normal [facility] CBC W Auto Differential pane l (Bld)on 03-31-2022 Basophils (Bld) [#/Vol] 10*3/uL Normal <0.11 [facility] Comment on above: Order Comment: Speci men Type: BLOOD SPECIMENOrdering Facility: [facility] Address: [address] [place] [address] Performed By: #### 5 7021-8 ####[facility] LABORATORYCLIA [id number] [address] Basophils/100 WBC (Bld) 0.2 % Normal [facility] Comment on above: Order Comment: Speci men Type: BLOOD SPECIMENOrdering Facility: [facility] Address: [address] [place] [address] Performed By: #### 5 7021-8 ####[facility] LABORATORYCLIA [id number] [address] Differential cell count method Nom (Bld) Auto Normal [facility] Comment on above: Order Comment: Speci men Type: BLOOD SPECIMENOrdering Facility: [facility] Address: [address] [place] [address] Performed By: #### 5 7021-8 ####[facility] LABORATORYCLIA [id number] [address] STATES OF [facility] Eosinophils (Bld) [#/Vol] 0.03 10*3/uL Normal <0.46 [facility] Comment on above: Order Comment: Speci men Type: BLOOD SPECIMENOrdering Facility: [facility] Address: [address] [place] [address] Performed By: #### 5 7021-8 ####[facility] LABORATORYCLIA [id number] [address] Eosinophils/100 WBC (Bld) 0.2 % Normal [facility] Comment on above: Order Comment: Speci men Type: BLOOD SPECIMENOrdering Facility: [facility] Address: [address] [address] Performed By: #### 5 7021-8 ####[facility] LABORATORYCLIA [id number] [address] Erythrocyte distribution width (RBC) [Ratio] 19.3 % High 11.5-15.0 [facility] Comment on above: Order Comment: Speci men Type: BLOOD SPECIMENOrdering Facility: [facility] Address: [address] [place] [address] Performed By: #### 5 7021-8 ####[facility] LABORATORYCLIA [id number] [address] Hematocrit (Bld) [Volume fraction] 32.7 % Low 36.0-46.0 [facility] Comment on above: Order Comment: Speci men Type: BLOOD SPECIMENOrdering Facility: [facility] Address: [address] [place] [address] Performed By: #### 5 7021-8 ####[facility] LABORATORYCLIA [id number] [address] [place] Hemoglobin (Bld) [Mass/Vol] 10.1 g/dL Low 11.5-15.5 [facility] Comment on above: Order Comment: Speci men Type: BLOOD SPECIMENOrdering Facility: [facility] Address: [address] [place] [address] Performed By: #### 5 7021-8 ####[facility] LABORATORYCLIA [id number] [address] IMMATURE GRAN % 0.6 % Normal [facility] Comment on above: Order Comment: Speci men Type: BLOOD SPECIMENOrdering Facility: [facility] Address: [address] [place] [address] Performed By: #### 5 7021-8 ####[facility] LABORATORYCLIA [id number] [address] IMMATURE GRAN ABS 0.08 k/uL Normal <0.10 [facility] Comment on above: Order Comment: Speci men Type: BLOOD SPECIMENOrdering Facility: [facility] Address: [address] [place] [address] Performed By: #### 5 7021-8 ####[facility] LABORATORYCLIA [id number] [address] OF [facility] Lymphocytes (Bld) [#/Vol] 1.13 10*3/uL Normal 1.00-4.0 0 [facility] Comment on above: Order Comment: Speci men Type: BLOOD SPECIMENOrdering Facility: [facility] Address: [address] [place] [address] Performed By: #### 5 7021-8 ####[facility] LABORATORYCLIA [id number] [address] Lymphocytes/100 WBC (Bld) 9.1 % Normal [facility] Comment on above: Order Comment: Speci men Type: BLOOD SPECIMENOrdering Facility: [facility] Address: [address] [place] [address] Performed By: #### 5 7021-8 ####[facility] LABORATORYCLIA [id number] [address] [place] MCH (RBC) [Entitic mass] 29.9 pg Normal 26.0-34.0 [facility] Comment on above: Order Comment: Speci men Type: BLOOD SPECIMENOrdering Facility: [facility] Address: [address] [place] [address] Performed By: #### 5 7021-8 ####[facility] LABORATORYCLIA [id number] [address] [place] MCHC (RBC) [Mass/Vol] 30.9 g/dL Normal 30.5-36.0 [facility] Comment on above: Order Comment: Speci men Type: BLOOD SPECIMENOrdering Facility: [facility] Address: [address] [place] [address] Performed By: #### 5 7021-8 ####[facility] LABORATORYCLIA [id number] [address] [place] MCV (RBC) [Entitic vol] 96.7 fL Normal 80.0-100.0 [facility] Comment on above: Order Comment: Speci men Type: BLOOD SPECIMENOrdering Facility: [facility] Address: [address] [place] [address] Performed By: #### 5 7021-8 ####[facility] LABORATORYCLIA [id number] [place] [address] [place] Monocytes (Bld) [#/Vol] 1.34 10*3/uL High <0.87 [facility] Comment on above: Order Comment: Speci men Type: BLOOD SPECIMENOrdering Facility: [facility] Address: [address] [place] [address] Performed By: #### 5 7021-8 ####[facility] LABORATORYCLIA [id number] [address] [place] Monocytes/100 WBC (Bld) 10.9 % Normal [facility] Comment on above: Order Comment: Speci men Type: BLOOD SPECIMENOrdering Facility: [facility] Address: [address] [place] [address] Performed By: #### 5 7021-8 ####[facility] LABORATORYCLIA [id number] [address] [place] Neutrophils (Bld) [#/Vol] 9.75 10*3/uL High 1.45-7.5 0 [facility] Comment on above: Order Comment: Speci men Type: BLOOD SPECIMENOrdering Facility: [facility] Address: [address] [place] [address] Performed By: #### 5 7021-8 ####[facility] LABORATORYCLIA [id number] [address] [place] Neutrophils/100 WBC (Bld) 79.0 % Normal [facility] Comment on above: Order Comment: Speci men Type: BLOOD SPECIMENOrdering Facility: [facility] Address: [address] [place] [address] Performed By: #### 5 7021-8 ####[facility] LABORATORYCLIA [id number] [address] Nucleated RBC (Bld) [#/Vol] 10*3/uL Normal <0.01 [facility] Comment on above: Order Comment: Speci men Type: BLOOD SPECIMENOrdering Facility: [facility] Address: [address] [place] [address] Performed By: #### 5 7021-8 ####[facility] LABORATORYCLIA [id number] [address] [place] Nucleated RBC/100 WBC (Bld) [Ratio] 0.0 /100 WBC Normal [facility] Comment on above: Order Comment: Speci men Type: BLOOD SPECIMENOrdering Facility: [facility] Address: [address] [place] [address] Performed By: #### 5 7021-8 ####[facility] LABORATORYCLIA [id number] [address] [place] Platelet mean volume (Bld) [Entitic vol] 9.3 fL Normal 9.0-12.7 [facility] Comment on above: Order Comment: Speci men Type: BLOOD SPECIMENOrdering Facility: [facility] Address: [address] [place] [address] Performed By: #### 5 7021-8 ####[facility] LABORATORYCLIA [id number] [address] [place] Platelets (Bld) [#/Vol] 312 10*3/uL Normal 150-400 [facility] Comment on above: Order Comment: Speci men Type: BLOOD SPECIMENOrdering Facility: [facility] Address: [address] [place], [place] [address] Performed By: #### 5 7021-8 ####[facility] LABORATORYCLIA [id number] [address] [place] RBC (Bld) [#/Vol] 3.38 10*6/uL Low 3.90-5.20 [facility] Comment on above: Order Comment: Speci men Type: BLOOD SPECIMENOrdering Facility: [facility] Address: [address] [place] [address] Performed By: #### 5 7021-8 ####[facility] LABORATORYCLIA [id number] [address] WBC (Bld) [#/Vol] 12.35 10*3/uL High 3.70-11.00 [facility] Comment on above: Order Comment: Speci men Type: BLOOD SPECIMENOrdering Facility: [facility] Address: [address] [place] [address] Performed By: #### 5 7021-8 ####[facility] LABORATORYCLIA [id number] [address] Comprehensive metabolic 2000 panelon 03-31-2022 Albumin [Mass/Vol] 3.9 g/dL Normal 3.9-4.9 [facility] Comment on above: Order Comment: Speci men Type: BLOOD SPECIMENOrdering Facility: [facility] Address: [address] [place] [address] Performed By: #### 2 4323-8 ####[facility] LABORATORYCLIA [id number] [address] ALP [Catalytic activity/Vol] 75 U/L Normal 34-123 [facility] Comment on above: Order Comment: Speci men Type: BLOOD SPECIMENOrdering Facility: [facility] Address: [address] [place] [address] Performed By: #### 2 4323-8 ####[facility] LABORATORYCLIA [id number] [address] ALT With P-5'-P [Catalytic activity/Vol] 9 U/L Normal 7-38 [facility] Comment on above: Order Comment: Speci men Type: BLOOD SPECIMENOrdering Facility: [facility] Address: [address] [place] [address] Performed By: #### 2 4323-8 ####[facility] LABORATORYCLIA [id number] [place] [address] [place] Anion gap [Moles/Vol] 16 mmol/L Normal 9-18 [facility] Comment on above: Order Comment: Speci men Type: BLOOD SPECIMENOrdering Facility: [facility] Address: [address] [place] [address] Performed By: #### 2 4323-8 ####[facility] LABORATORYCLIA [id number] [place] [address] [place] AST With P-5'-P [Catalytic activity/Vol] 9 U/L Low 13-35 [facility] Comment on above: Order Comment: Speci men Type: BLOOD SPECIMENOrdering Facility: [facility] Address: [address] [place] [address] Performed By: #### 2 4323-8 ####[facility] LABORATORYCLIA [id number] [address] STATES OF [facility] Bilirubin [Mass/Vol] 0.3 mg/dL Normal 0.2-1.3 [facility] Comment on above: Order Comment: Speci men Type: BLOOD SPECIMENOrdering Facility: [facility] Address: [address] [place] [address] Performed By: #### 2 4323-8 ####[facility] LABORATORYCLIA [id number] [address] [place] Calcium [Mass/Vol] 9.0 mg/dL Normal 8.5-10.2 [facility] Comment on above: Order Comment: Speci men Type: BLOOD SPECIMENOrdering Facility: [facility] Address: [address] [place] [address] Performed By: #### 2 4323-8 ####[facility] LABORATORYCLIA [id number] [place] [address] [place] Chloride [Moles/Vol] 109 mmol/L High 97-105 [facility] Comment on above: Order Comment: Speci men Type: BLOOD SPECIMENOrdering Facility: [facility] Address: [address] [place] [address] Performed By: #### 2 4323-8 ####[facility] LABORATORYCLIA [id number] [address] STATES [facility] CO2 [Moles/Vol] 17 mmol/L Low 22-30 [facility] Comment on above: Order Comment: Speci men Type: BLOOD SPECIMENOrdering Facility: [facility] Address: [address] [place] [address] Performed By: #### 2 4323-8 ####[facility] LABORATORYCLIA [id number] [address] STATES OF [facility] Creatinine [Mass/Vol] 0.36 mg/dL Low 0.58-0.96 [facility] Comment on above: Order Comment: Speci men Type: BLOOD SPECIMENOrdering Facility: [facility] Address: [address] [place] [address] Performed By: #### 2 4323-8 ####[facility] LABORATORYCLIA [id number] [address] ESTIMATED GLOMERULAR FILTRATION RATE 111 mL/min/1.73m??? Normal >=60 [facility] Comment on above: Order Comment: Speci men Type: BLOOD SPECIMENOrdering Facility: [facility] Address: [address] [place] [address] Result Comment: Ameena mated Glomerular Filtration Rate [...] actual GFR. Performed By: #### 2 4323-8 ####[facility] LABORATORYCLIA [id number] [address] [place] Glucose [Mass/Vol] 134 mg/dL High 74-99 [facility] Comment on above: Order Comment: Speci men Type: BLOOD SPECIMENOrdering Facility: [facility] Address: [address] [address] Result Comment: The [place] [employer] (ADA) provides guidance for cutoff [...] Standards of Medical Care in Diabetes 2016, [place] [employer]. Diabetes Care. 2016.39(Suppl 1). Performed By: #### 2 4323-8 ####[facility] LABORATORYCLIA [id number] [place] [address] [place] Potassium [Moles/Vol] 3.9 mmol/L Normal 3.7-5.1 [facility] Comment on above: Order Comment: Lauren [facility] Type: BLOOD SPECIMENOrdering Facility: [facility] Address: [address] [address] Performed By: #### 2 4323-8 ####[facility] LABORATORYCLIA [id number] [place] [address] [place] Protein [Mass/Vol] 6.5 g/dL Normal 6.3-8.0 [facility] Comment on above: Order Comment: Lauren [facility] Type: BLOOD SPECIMENOrdering Facility: [facility] Address: [address] [address] Performed By: #### 2 4323-8 ####[facility] LABORATORYCLIA [id number] [place] [address] [place] Sodium [Moles/Vol] 142 mmol/L Normal 136-144 [facility] Comment on above: Order Comment: Lauren [facility] Type: BLOOD SPECIMENOrdering Facility: [facility] Address: [address] [address] Performed By: #### 2 4323-8 ####[facility] LABORATORYCLIA [id number] [address] STATES [facility] Urea nitrogen [Mass/Vol] 16 mg/dL Normal 7-21 [facility] Comment on above: Order Comment: Speci men Type: BLOOD SPECIMENOrdering Facility: [facility] Address: [address] [place] [address] Performed By: #### 2 4323-8 ####[facility] LABORATORYCLIA [id number] [address] STATES OF [facility] Albumin [Mass/Vol] 4.1 g/dL Normal 3.9-4.9 [facility] Comment on above: Order Comment: Speci men Type: BLOOD SPECIMENOrdering Facility: [facility] Address: [address] [place] [address] Performed By: #### 2 4323-8, , 2776-08 ####[facility] LABORATORYCLIA [id number] [address] [place] ALP [Catalytic activity/Vol] 74 U/L Normal 34-123 [facility] Comment on above: Order Comment: Speci men Type: BLOOD SPECIMENOrdering Facility: [facility] Address: [address] [place] [address] Performed By: #### 2 4323-8, , 2776-08 ####[facility] LABORATORYCLIA [id number] [address] [place] ALT With P-5'-P [Catalytic activity/Vol] 9 U/L Normal 7-38 [facility] Comment on above: Order Comment: Speci men Type: BLOOD SPECIMENOrdering Facility: [facility] Address: [address] [place] [address] Performed By: #### 2 4323-8, , 2776- ####[facility] LABORATORYCLIA [id number] [address] Anion gap [Moles/Vol] 17 mmol/L Normal 9-18 [facility] Comment on above: Order Comment: Speci men Type: BLOOD SPECIMENOrdering Facility: [facility] Address: [address] [place] [address] Performed By: #### 2 4323-8, , 2776-08 ####[facility] LABORATORYCLIA [id number] [place] [address] [place] AST With P-5'-P [Catalytic activity/Vol] 9 U/L Low 13-35 [facility] Comment on above: Order Comment: Speci men Type: BLOOD SPECIMENOrdering Facility: [facility] Address: [address] [place] [address] Performed By: #### 2 4323-8, , 2776-08 ####[facility] LABORATORYCLIA [id number] [place] [address] [place] Bilirubin [Mass/Vol] 0.3 mg/dL Normal 0.2-1.3 [facility] Comment on above: Order Comment: Speci men Type: BLOOD SPECIMENOrdering Facility: [facility] Address: [address] [place] [address] Performed By: #### 2 4323-8, , 2776-08 ####[facility] LABORATORYCLIA [id number] [place] [address] [place] Calcium [Mass/Vol] 9.1 mg/dL Normal 8.5-10.2 [facility] Comment on above: Order Comment: Speci men Type: BLOOD SPECIMENOrdering Facility: [facility] Address: [address] [place] [address] Performed By: #### 2 4323-8, , 2776-08 ####[facility] LABORATORYCLIA [id number] [place] [address] [place] Chloride [Moles/Vol] 110 mmol/L High 97-105 [facility] Comment on above: Order Comment: Speci men Type: BLOOD SPECIMENOrdering Facility: [facility] Address: [address] [place] [address] Performed By: #### 2 4323-8, , 2776-08 ####[facility]CL[facility] [id number] [address] CO2 [Moles/Vol] 13 mmol/L Low 22-30 [facility] Comment on above: Order Comment: Speci men Type: BLOOD SPECIMENOrdering Facility: [facility] Address: [address] [place] [address] Performed By: #### 2 4323-8, , 2776-08 ####[facility] [id number] [address] Creatinine [Mass/Vol] 0.37 mg/dL Low 0.58-0.96 [facility] Comment on above: Order Comment: Speci men Type: BLOOD SPECIMENOrdering Facility: [facility] Address: [address] [place] [address] Performed By: #### 2 4323-8, , 2776-08 ####[facility] [id number] ESTIMATED GLOMERULAR FILTRATION RATE 111 mL/min/1.73m??? Normal >=60 [facility] Comment on above: Order Comment: Speci men Type: BLOOD SPECIMENOrdering Facility: [facility] Address: [address] [place] [address] Result Comment: Ameena mated Glomerular Filtration Rate [...] actual GFR. Performed By: #### 2 4323-8, 23652-3, 2776-08 ####[facility] LABORATORYCLIA [id number] [place] [address] [place] Glucose [Mass/Vol] 128 mg/dL High 74-99 [facility] Comment on above: Order Comment: Speci men Type: BLOOD SPECIMENOrdering Facility: [facility] Address: [address] [place] [address] Result Comment: The [place] [employer] (ADA) provides guidance for cutoff [...] Standards of Medical Care in Diabetes 2016, [place] [employer]. Diabetes Care. 2016.39(Suppl 1). Performed By: #### 2 4323-8, , 2776-08 ####[facility] LABORATORYCLIA [id number] [address] [place] Potassium [Moles/Vol] 4.1 mmol/L Normal 3.7-5.1 [facility] Comment on above: Order Comment: Lauren santana Type: BLOOD SPECIMENOrdering Facility: [facility] Address: [address] [place] [address] Performed By: #### 2 4323-8, , 2776-08 ####[facility] LABORATORYCLIA [id number] [address] STATES OF [facility] Protein [Mass/Vol] 6.8 g/dL Normal 6.3-8.0 [facility] Comment on above: Order Comment: Speci men Type: BLOOD SPECIMENOrdering Facility: [facility] Address: [address] [place] [address] Performed By: #### 2 4323-8, , 2776- ####[facility] LABORATORYCLIA [id number] [place] [address] [place] Sodium [Moles/Vol] 140 mmol/L Normal 136-144 [facility] Comment on above: Order Comment: Speci men Type: BLOOD SPECIMENOrdering Facility: [facility] Address: [address] [place] [address] Performed By: #### 2 4323-8, 62711-4, 2776- ####[facility] LABORATORYCLIA [id number] [place] [address] [place] Urea nitrogen [Mass/Vol] 15 mg/dL Normal 7-21 [facility] Comment on above: Order Comment: Speci men Type: BLOOD SPECIMENOrdering Facility: [facility] Address: [address] [place] [address] Performed By: #### 2 4323-8, , 2776-08 ####[facility] LABORATORYCLIA [id number] [address] [place] Magnesium SerPl-mCncon 03-31 Magnesium [Mass/Vol] 2.2 mg/dL Normal 1.7-2.3 [facility] Comment on above: Order Comment: Speci men Type: BLOOD SPECIMENOrdering Facility: [facility] Address: [address] [place] [address] Performed By: #### 2 4323-8, , 2776-08 ####[facility] LABORATORYCLIA [id number] [place] [address] [place] Phosphate SerPl-mCncon 03-31 Phosphate [Mass/Vol] 1.9 mg/dL Low 2.7-4.8 [facility] Comment on above: Order Comment: Speci men Type: BLOOD SPECIMENOrdering Facility: [facility] Address: [address] [place] [address] Performed By: #### 2 4323-8, 73419-3, 2776- ####[facility] LABORATORYCLIA [id number] [place] [id number] [place] ALLIED HEALTHon 03-30-2022 ALLIED HEALTH Normal [facility] ALLIED HEALTH Normal [facility] ALLIED HEALTH Normal [facility] ARTERIAL BLOOD GASESon 03-30 BASE DEFICIT, ARTERIAL -14 mmol/L Low -2-0 [facility] Comment on above: Order Comment: Speci men Type: ARTERIAL BLOOD SPECIMENOrdering Facility: [facility] Address: [address] [place] [address] Performed By: #### A LLBG ####[facility] LABORATORYCLIA [id number] [address] [place] Body temperature 99.86 [degF] Normal [facility] Comment on above: Order Comment: Speci men Type: ARTERIAL BLOOD SPECIMENOrdering Facility: [facility] Address: [address] [place] [address] Performed By: #### A LLBG ####[facility] LABORATORYCLIA [id number] [place] [address] [place] CALCIUM IONIZED, PH CORRECTED 1.17 mmol/L Normal 1.08-1.30 [facility] Comment on above: Order Comment: Speci men Type: ARTERIAL BLOOD SPECIMENOrdering Facility: [facility] Address: [address] [place] [address] Performed By: #### A LLBG ####[facility] LABORATORYCLIA [id number] [address] [place] Calcium.ionized (BldV) [Mass/Vol] 1.24 mmol/L Normal 1.08-1.30 [facility] Comment on above: Order Comment: Speci men Type: ARTERIAL BLOOD SPECIMENOrdering Facility: [facility] Address: [address] [place] [address] Performed By: #### A LLBG ####[facility] LABORATORYCLIA [id number] [address] [place] Carboxyhemoglobin (BldA) [Mass fraction] 2.1 % High 0.0-2.0 [facility] Comment on above: Order Comment: Speci men Type: ARTERIAL BLOOD SPECIMENOrdering Facility: [facility] Address: [address] [place] [address] Result Comment: Carb oxyhemoglobin Reference Range for Smokers: 2.0-8.0% Performed By: #### A LLBG ####[facility]ORATORYCLIA [id number] [address] [place] CO2 (Bld) [Partial pressure] 23 mm Hg Low 36-46 [facility] Comment on above: Order Comment: Speci men Type: ARTERIAL BLOOD SPECIMENOrdering Facility: [facility] Address: [address] [place] [address] Performed By: #### A LLBG ####[facility] LABORATORYCLIA [id number] [address] [place] CO2 [Moles/Vol] 10 mmol/L Low 22-28 [facility] Comment on above: Order Comment: Speci men Type: ARTERIAL BLOOD SPECIMENOrdering Facility: [facility] Address: [address] [place] [address] Performed By: #### A LLBG ####[facility] LABORATORYCLIA [id number] [address] CO2 adjusted to patient's actual temperature (Bld) [Partial pressure] 24 mmHg Low 36-46 [facility] Comment on above: Order Comment: Speci men Type: ARTERIAL BLOOD SPECIMENOrdering Facility: [facility] Address: [address] [place] [address] Performed By: #### A LLBG ####[facility]ORATORYCLIA [id number] [address] [place] Glucose [Mass/Vol] 94 mg/dL Normal 60-105 [facility] Comment on above: Order Comment: Speci men Type: ARTERIAL BLOOD SPECIMENOrdering Facility: [facility] Address: [address] [place] [address] Performed By: #### A LLBG ####[facility] LABORATORYCLIA [id number] [address] [place] HCO3 (Bld) [Moles/Vol] 11 mmol/L Low 22-26 [facility] Comment on above: Order Comment: Speci men Type: ARTERIAL BLOOD SPECIMENOrdering Facility: [facility] Address: [address] [place] [address] Performed By: #### A LLBG ####[facility] LABORATORYCLIA [id number] [address] [place] Hematocrit (Bld) [Volume fraction] 32.4 % Low 36.0-46.0 [facility] Comment on above: Order Comment: Speci men Type: ARTERIAL BLOOD SPECIMENOrdering Facility: [facility] Address: [address] [place] [address] Performed By: #### A LLBG ####[facility] LABORATORYCLIA [id number] [address] [place] Hemoglobin (Bld) [Mass/Vol] 10.5 g/dL Low 11.5-15.5 [facility] Comment on above: Order Comment: Speci men Type: ARTERIAL BLOOD SPECIMENOrdering Facility: [facility] Address: [address] [place] [address] Performed By: #### A LLBG ####[facility] LABORATORYCLIA [id number] [address] [place] Methemoglobin (Bld) [Mass fraction] 1.0 % Normal 0.0-1.5 [facility] Comment on above: Order Comment: Speci men Type: ARTERIAL BLOOD SPECIMENOrdering Facility: [facility] Address: [address] [place] [address] Performed By: #### A LLBG ####[facility] LABORATORYCLIA [id number] [address] O2 THERAPY RA=Room Air Normal [facility] Comment on above: Order Comment: Speci men Type: ARTERIAL BLOOD SPECIMENOrdering Facility: [facility] Address: [address] [place] [address] Performed By: #### A LLBG ####[facility]ORATORYCLIA [id number] [address] [place] Oxygen (Bld) [Partial pressure] 83 mm Hg Low 85-95 [facility] Comment on above: Order Comment: Speci men Type: ARTERIAL BLOOD SPECIMENOrdering Facility: [facility] Address: [address] [place] [place] [address] Performed By: #### A LLBG ####[facility] LABORATORYCLIA [id number] [address] [place] Oxygen adjusted to patient's actual temperature (Bld) [Partial pressure] 86 mmHg Normal 85-95 [facility] Comment on above: Order Comment: Speci men Type: ARTERIAL BLOOD SPECIMENOrdering Facility: [facility] Address: [address] [place] [address] Performed By: #### A LLBG ####[facility] LABORATORYCLIA [id number] [address] [place] OXYGEN SATURATION, ARTERIAL 95 % Normal 95-98 [facility] Comment on above: Order Comment: Speci men Type: ARTERIAL BLOOD SPECIMENOrdering Facility: [facility] Address: [address] [place] [address] Performed By: #### A LLBG ####[facility] LABORATORYCLIA [id number] [address] [place] Oxyhemoglobin (BldA) [Mass fraction] 92 % Low 95-98 [facility] Comment on above: Order Comment: Speci men Type: ARTERIAL BLOOD SPECIMENOrdering Facility: [facility] Address: [address] [place] [address] Performed By: #### A LLBG ####[facility] LABORATORYCLIA [id number] [place] [address] [place] pH (Bld) 7.30 [pH] Low 7.35-7.45 [facility] Comment on above: Order Comment: Speci men Type: ARTERIAL BLOOD SPECIMENOrdering Facility: [facility] Address: [address] [place] [address] Performed By: #### A LLBG ####[facility] LABORATORYCLIA [id number] [address] [place] pH adjusted to patient's actual temperature (Bld) 7.29 Low 7.35-7.45 [facility] Comment on above: Order Comment: Speci men Type: ARTERIAL BLOOD SPECIMENOrdering Facility: [facility] Address: [address] [place] [address] Performed By: #### A LLBG ####[facility]ORATORYCLIA [id number] [address] [place] Potassium [Moles/Vol] 4.1 mmol/L Normal 3.5-5.0 [facility] Comment on above: Order Comment: Speci men Type: ARTERIAL BLOOD SPECIMENOrdering Facility: [facility] Address: [address] [place] [address] Performed By: #### A LLBG ####[facility] LABORATORYCLIA [id number] [address] [place] Sodium [Moles/Vol] 139 mmol/L Normal 136-144 [facility] Comment on above: Order Comment: Speci men Type: ARTERIAL BLOOD SPECIMENOrdering Facility: [facility] Address: [address] [place] [address] Performed By: #### A LLBG ####[facility] LABORATORYCLIA [id number] [place] [address] [place] Ammonia Plas-sCncon 03-30-20 22 Ammonia (P) [Moles/Vol] 21 umol/L Normal 11-51 [facility] Comment on above: Order Comment: Speci men Type: BLOOD SPECIMENOrdering Facility: [facility] Address: [address] [place] [address] Performed By: #### 1 6362-6 ####[facility]ORATORYCLIA [id number] [place] [address] [place] Basic metabolic 2000 panelon 03-30-2022 Anion gap [Moles/Vol] 21 mmol/L High 9-18 [facility] Comment on above: Order Comment: Speci men Type: BLOOD SPECIMENOrdering Facility: [facility] Address: [address] [place] [address] Performed By: #### 3 3959-8, 53877-1, 28760-7, 2157-01, 2776-08 ####[facility] LABORATORYCLIA [id number] [place] [address] [place] Calcium [Mass/Vol] 8.7 mg/dL Normal 8.5-10.2 [facility] Comment on above: Order Comment: Speci men Type: BLOOD SPECIMENOrdering Facility: [facility] Address: [address] [place] [address] Performed By: #### 3 3959-8, 82122-6, 25046-2, 2157-01, 2776-08 ####[facility]CLIA [id number] [place] [address] [place] Chloride [Moles/Vol] 107 mmol/L High 97-105 [facility] Comment on above: Order Comment: Speci men Type: BLOOD SPECIMENOrdering Facility: [facility] Address: [address] [place] [address] Performed By: #### 3 3959-8, 11485-0, 60912-4, 2157-01, 2776-08 ####[facility] LABORATORYCLIA [id number] [place] [address] [place] CO2 [Moles/Vol] 11 mmol/L Low 22-30 [facility] Comment on above: Order Comment: Speci men Type: BLOOD SPECIMENOrdering Facility: [facility] Address: [address] [place] [address] Performed By: #### 3 3959-8, 27064-5, 76306-2, 2157-01, 2776-08 ####[facility] LABORATORYCLIA [id number] [place] [address] [place] Creatinine [Mass/Vol] 0.43 mg/dL Low 0.58-0.96 [facility] Comment on above: Order Comment: Speci men Type: BLOOD SPECIMENOrdering Facility: [facility] Address: [address] [place] [address] Performed By: #### 3 3959-8, 97565-1, 15397-2, 7-6, 2777-1 ####[facility]CLIA [id number] [address] [place] ESTIMATED GLOMERULAR FILTRATION RATE 107 mL/min/1.73m??? Normal >=60 [facility] Comment on above: Order Comment: Lauren santana Type: BLOOD SPECIMENOrdering Facility: [facility] Address: [address] [place] [address] Result Comment: Ameena mated Glomerular Filtration Rate [...] actual GFR. Performed By: #### 3 3959-8, 84267-0, 33883-3, 7-6, 2777-1 ####[facility] LABORATORYCLIA [id number] [place] [address] [place] Glucose [Mass/Vol] 90 mg/dL Normal 74-99 [facility] Comment on above: Order Comment: Lauren santana Type: BLOOD SPECIMENOrdering Facility: [facility] Address: [address] [place] [address] Result Comment: The [place] [employer] (ADA) provides guidance for cutoff [...] Standards of Medical Care in Diabetes 2016, [place] [employer]. Diabetes Care. 2016.39(Suppl 1). Performed By: #### 3 3959-8, 99199-9, 01628-7, 2157-01, 2776- ####[facility] LABORATORYCLIA [id number] [place] [address] [place] Potassium [Moles/Vol] 4.2 mmol/L Normal 3.7-5.1 [facility] Comment on above: Order Comment: Speci men Type: BLOOD SPECIMENOrdering Facility: [facility] Address: [address] [place] [address] Performed By: #### 3 3959-8, 28496-0, 99380-6, 2157-01, 2776-08 ####[facility]CLIA [id number] [address] STATES OF [facility] Sodium [Moles/Vol] 139 mmol/L Normal 136-144 [facility] Comment on above: Order Comment: Speci men Type: BLOOD SPECIMENOrdering Facility: [facility] Address: [address] [place] [address] Performed By: #### 3 3959-8, 75266-7, 79928-5, 2157-01, 2776-08 ####[facility] LABORATORYCLIA [id number] [address] [place] Urea nitrogen [Mass/Vol] 12 mg/dL Normal 7-21 [facility] Comment on above: Order Comment: Speci men Type: BLOOD SPECIMENOrdering Facility: [facility] Address: [address] [place] [address] Performed By: #### 3 3959-8, 35247-1, 44464-2, 2157-01, 2776-08 ####[facility] LABORATORYCLIA [id number] [address] [place] CBC W Auto Differential pane l (Bld)on 03-30-2022 Basophils (Bld) [#/Vol] 0.03 10*3/uL Normal <0.11 [facility] Comment on above: Order Comment: Speci men Type: BLOOD SPECIMENOrdering Facility: [facility] Address: [address] [place] [address] Performed By: #### 5 7021-8 ####[facility]ORATORYCLIA [id number] [address] Basophils/100 WBC (Bld) 0.2 % Normal [facility] Comment on above: Order Comment: Speci men Type: BLOOD SPECIMENOrdering Facility: [facility] Address: [address] [place] [address] Performed By: #### 5 7021-8 ####[facility]ORATORYCLIA [id number] [address] Differential cell count method Nom (Bld) Auto Normal [facility] Comment on above: Order Comment: Speci men Type: BLOOD SPECIMENOrdering Facility: [facility] Address: [address] [place] [address] Performed By: #### 5 7021-8 ####[facility] LABORATORYCLIA [id number] [address] STATES OF [facility] Eosinophils (Bld) [#/Vol] 10*3/uL Normal <0.46 [facility] Comment on above: Order Comment: Speci men Type: BLOOD SPECIMENOrdering Facility: [facility] Address: [address] [place] [address] Performed By: #### 5 7021-8 ####[facility] LABORATORYCLIA [id number] [address] Eosinophils/100 WBC (Bld) 0.0 % Normal [facility] Comment on above: Order Comment: Speci men Type: BLOOD SPECIMENOrdering Facility: [facility] Address: [address] [place] [address] Performed By: #### 5 7021-8 ####[facility]ORATORYCLIA [id number] [address] Erythrocyte distribution width (RBC) [Ratio] 19.4 % High 11.5-15.0 [facility] Comment on above: Order Comment: Speci men Type: BLOOD SPECIMENOrdering Facility: [facility] Address: [address] [place] [address] Performed By: #### 5 7021-8 ####[facility] LABORATORYCLIA [id number] [address] OF [facility] Hematocrit (Bld) [Volume fraction] 31.4 % Low 36.0-46.0 [facility] Comment on above: Order Comment: Speci men Type: BLOOD SPECIMENOrdering Facility: [facility] Address: [address] [place] [address] Performed By: #### 5 7021-8 ####[facility] LABORATORYCLIA [id number] [address] OF [facility] Hemoglobin (Bld) [Mass/Vol] 10.0 g/dL Low 11.5-15.5 [facility] Comment on above: Order Comment: Speci men Type: BLOOD SPECIMENOrdering Facility: [facility] Address: [address] [place] [address] Performed By: #### 5 7021-8 ####[facility] LABORATORYCLIA [id number] [address] IMMATURE GRAN % 0.5 % Normal [facility] Comment on above: Order Comment: Speci men Type: BLOOD SPECIMENOrdering Facility: [facility] Address: [address] [place] [address] Performed By: #### 5 7021-8 ####[facility] LABORATORYCLIA [id number] [address] IMMATURE GRAN ABS 0.07 k/uL Normal <0.10 [facility] Comment on above: Order Comment: Speci men Type: BLOOD SPECIMENOrdering Facility: [facility] Address: [address] [place] [address] Performed By: #### 5 7021-8 ####[facility] LABORATORYCLIA [id number] [address] OF [facility] Lymphocytes (Bld) [#/Vol] 1.05 10*3/uL Normal 1.00-4.0 0 [facility] Comment on above: Order Comment: Speci men Type: BLOOD SPECIMENOrdering Facility: [facility] Address: [address] [place] [address] Performed By: #### 5 7021-8 ####[facility] LABORATORYCLIA [id number] [address] Lymphocytes/100 WBC (Bld) 8.2 % Normal [facility] Comment on above: Order Comment: Speci men Type: BLOOD SPECIMENOrdering Facility: [facility] Address: [address] [place] [address] Performed By: #### 5 7021-8 ####[facility] LABORATORYCLIA [id number] [address] MCH (RBC) [Entitic mass] 30.3 pg Normal 26.0-34.0 [facility] Comment on above: Order Comment: Speci men Type: BLOOD SPECIMENOrdering Facility: [facility] Address: [address] [place] [address] Performed By: #### 5 7021-8 ####[facility] LABORATORYCLIA [id number] [address] STATES OF [facility] MCHC (RBC) [Mass/Vol] 31.8 g/dL Normal 30.5-36.0 [facility] Comment on above: Order Comment: Speci men Type: BLOOD SPECIMENOrdering Facility: [facility] Address: [address] [place] [address] Performed By: #### 5 7021-8 ####[facility] LABORATORYCLIA [id number] [address] MCV (RBC) [Entitic vol] 95.2 fL Normal 80.0-100.0 [facility] Comment on above: Order Comment: Speci men Type: BLOOD SPECIMENOrdering Facility: [facility] Address: [address] [address] Performed By: #### 5 7021-8 ####[facility]ORATORYCLIA [id number] [place] [address] [place] Monocytes (Bld) [#/Vol] 1.48 10*3/uL High <0.87 [facility] Comment on above: Order Comment: Speci men Type: BLOOD SPECIMENOrdering Facility: [facility] Address: [address] [place] [address] Performed By: #### 5 7021-8 ####[facility] LABORATORYCLIA [id number] [address] [place] Monocytes/100 WBC (Bld) 11.6 % Normal [facility] Comment on above: Order Comment: Speci men Type: BLOOD SPECIMENOrdering Facility: [facility] Address: [address] [place] [address] Performed By: #### 5 7021-8 ####[facility]ORATORYCLIA [id number] [address] [place] Neutrophils (Bld) [#/Vol] 10.16 10*3/uL High 1.45-7. 50 [facility] Comment on above: Order Comment: Speci men Type: BLOOD SPECIMENOrdering Facility: [facility] Address: [address] [place] [address] Performed By: #### 5 7021-8 ####[facility]ORATORYCLIA [id number] [address] [place] Neutrophils/100 WBC (Bld) 79.5 % Normal [facility] Comment on above: Order Comment: Speci men Type: BLOOD SPECIMENOrdering Facility: [facility] Address: [address] [place] [address] Performed By: #### 5 7021-8 ####[facility]ORATORYCLIA [id number] [place] [address] [place] Nucleated RBC (Bld) [#/Vol] 10*3/uL Normal <0.01 [facility] Comment on above: Order Comment: Speci men Type: BLOOD SPECIMENOrdering Facility: [facility] Address: [address] [place] [address] Performed By: #### 5 7021-8 ####[facility] LABORATORYCLIA [id number] [address] OF [facility] Nucleated RBC/100 WBC (Bld) [Ratio] 0.0 /100 WBC Normal [facility] Comment on above: Order Comment: Speci men Type: BLOOD SPECIMENOrdering Facility: [facility] Address: [address] [place] [address] Performed By: #### 5 7021-8 ####[facility] LABORATORYCLIA [id number] [address] [place] Platelet mean volume (Bld) [Entitic vol] 8.8 fL Low 9.0-12.7 [facility] Comment on above: Order Comment: Speci men Type: BLOOD SPECIMENOrdering Facility: [facility] Address: [address] [place] [address] Performed By: #### 5 7021-8 ####[facility] LABORATORYCLIA [id number] [address] [place] Platelets (Bld) [#/Vol] 302 10*3/uL Normal 150-400 [facility] Comment on above: Order Comment: Speci men Type: BLOOD SPECIMENOrdering Facility: [facility] Address: [address] [place], [place] [address] Performed By: #### 5 7021-8 ####[facility] LABORATORYCLIA [id number] [address] [place] RBC (Bld) [#/Vol] 3.30 10*6/uL Low 3.90-5.20 [facility] Comment on above: Order Comment: Speci men Type: BLOOD SPECIMENOrdering Facility: [facility] Address: [address] [place] [address] Performed By: #### 5 7021-8 ####[facility] LABORATORYCLIA [id number] [place] [address] [place] WBC (Bld) [#/Vol] 12.79 10*3/uL High 3.70-11.00 [facility] Comment on above: Order Comment: Speci men Type: BLOOD SPECIMENOrdering Facility: [facility] Address: [address] [place] [address] Performed By: #### 5 7021-8 ####[facility] LABORATORYCLIA [id number] [address] [place] CK SerPl-cCncon 03-30-2022 CK [Catalytic activity/Vol] 41 U/L Low 42-196 [facility] Comment on above: Order Comment: Speci men Type: BLOOD SPECIMENOrdering Facility: [facility] Address: [address] [place] [address] Performed By: #### 3 3959-8, 89730-0, 28681-5, 2157-6, 277-1 ####[facility] LABORATORYCLIA [id number] [address] [place] Comprehensive metabolic 2000 panelon 03-30-2022 Albumin [Mass/Vol] 4.0 g/dL Normal 3.9-4.9 [facility] Comment on above: Order Comment: Speci men Type: BLOOD SPECIMENOrdering Facility: [facility] Address: [address] [place] [address] Performed By: #### 2 4323-8, 2777-1, 56321-6 ####[facility] LABORATORYCLIA [id number] [address] [place] ALP [Catalytic activity/Vol] 73 U/L Normal 34-123 [facility] Comment on above: Order Comment: Speci men Type: BLOOD SPECIMENOrdering Facility: [facility] Address: [address] [place] [address] Performed By: #### 2 4323-8, 2777-1, 77115-7 ####[facility] LABORATORYCLIA [id number] [address] STATES OF [facility] ALT With P-5'-P [Catalytic activity/Vol] 9 U/L Normal 7-38 [facility] Comment on above: Order Comment: Speci men Type: BLOOD SPECIMENOrdering Facility: [facility] Address: [address] [place] [address] Performed By: #### 2 4323-8, 2777, ####[facility] LABORATORYCLIA [id number] [address] OF [facility] Anion gap [Moles/Vol] 19 mmol/L High 9-18 [facility] Comment on above: Order Comment: Speci men Type: BLOOD SPECIMENOrdering Facility: [facility] Address: [address] [place] [address] Performed By: #### 2 4323-8, 27702-15, ####[facility] LABORATORYCLIA [id number] [address] OF [facility] AST With P-5'-P [Catalytic activity/Vol] 9 U/L Low 13-35 [facility] Comment on above: Order Comment: Speci men Type: BLOOD SPECIMENOrdering Facility: [facility] Address: [address] [place] [address] Performed By: #### 2 4323-8, 27702-15, ####[facility] LABORATORYCLIA [id number] [address] STATES OF [facility] Bilirubin [Mass/Vol] 0.4 mg/dL Normal 0.2-1.3 [facility] Comment on above: Order Comment: Speci men Type: BLOOD SPECIMENOrdering Facility: [facility] Address: [address] [place] [address] Performed By: #### 2 4323-8, 27702-15, ####[facility] LABORATORYCLIA [id number] [address] Calcium [Mass/Vol] 8.3 mg/dL Low 8.5-10.2 [facility] Comment on above: Order Comment: Speci men Type: BLOOD SPECIMENOrdering Facility: [facility] Address: [address] [place] [address] Performed By: #### 2 4323-8, 2776-08, ####[facility] LABORATORYCLIA [id number] [place] [address] [place] Chloride [Moles/Vol] 103 mmol/L Normal 97-105 [facility] Comment on above: Order Comment: Speci men Type: BLOOD SPECIMENOrdering Facility: [facility] Address: [address] [place] [address] Performed By: #### 2 4323-8, 2776-08, ####[facility] LABORATORYCLIA [id number] [address] [place] CO2 [Moles/Vol] 16 mmol/L Low 22-30 [facility] Comment on above: Order Comment: Speci men Type: BLOOD SPECIMENOrdering Facility: [facility] Address: [address] [place] [address] Performed By: #### 2 4323-8, 2776-08, ####[facility] LABORATORYCLIA [id number] [address] STATES OF [facility] Creatinine [Mass/Vol] 0.37 mg/dL Low 0.58-0.96 [facility] Comment on above: Order Comment: Speci men Type: BLOOD SPECIMENOrdering Facility: [facility] Address: [address] [place] [address] Performed By: #### 2 4323-8, 2776-08, ####[facility] LABORATORYCLIA [id number] [address] ESTIMATED GLOMERULAR FILTRATION RATE 111 mL/min/1.73m??? Normal >=60 [facility] Comment on above: Order Comment: Speci men Type: BLOOD SPECIMENOrdering Facility: [facility] Address: [address] [phone] Result Comment: Ameena mated Glomerular Filtration Rate [...] GFR. Performed By: #### 2 4323-8, 2777, ####[facility] [id number] [place] [address] [place] Glucose [Mass/Vol] 94 mg/dL Normal 74-99 [facility] Comment on above: Order Comment: Lauren santana Type: BLOOD SPECIMENOrdering Facility: [facility] Address: [address] Result Comment: The [place] [employer] (ADA) provides guidance for cutoff [...] Standards of Medical Care in Diabetes 2016, [place] [employer]. Diabetes Care. 2016.39(Suppl 1). Performed By: #### 2 4323-8, 2776-08, ####[facility] LABORATORYIA [id number] [place] [address] [place] Potassium [Moles/Vol] 3.6 mmol/L Low 3.7-5.1 [facility] Comment on above: Order Comment: Lauren santana Type: BLOOD SPECIMENOrdering Facility: [facility] Address: [address] [phone] Performed By: #### 2 4323-8, 2777, ####[facility] LABORATORYCLIA [id number] [place] [address] [place] Protein [Mass/Vol] 6.3 g/dL Normal 6.3-8.0 [facility] Comment on above: Order Comment: Speci men Type: BLOOD SPECIMENOrdering Facility: [facility] Address: [address] [place] [address] Performed By: #### 2 4323-8, 27702-15, ####[facility] LABORATORYCLIA [id number] [place] [address] [place] Sodium [Moles/Vol] 138 mmol/L Normal 136-144 [facility] Comment on above: Order Comment: Speci men Type: BLOOD SPECIMENOrdering Facility: [facility] Address: [address] [place] [address] Performed By: #### 2 4323-8, 2776-08, ####[facility] LABORATORYCLIA [id number] [address] [place] Urea nitrogen [Mass/Vol] 10 mg/dL Normal 7-21 [facility] Comment on above: Order Comment: Speci men Type: BLOOD SPECIMENOrdering Facility: [facility] Address: [address] [place] [address] Performed By: #### 2 4323-8, 2771, ####[facility] LABORATORYCLIA [id number] [address] [place] Hepatic function 2000 panelo n 03-30-2022 Albumin [Mass/Vol] 4.0 g/dL Normal 3.9-4.9 [facility] Comment on above: Order Comment: Speci men Type: BLOOD SPECIMENOrdering Facility: [facility] Address: [address] [place] [address] Performed By: #### 3 3959-8, 34582-9, 09880-0, 2157-6, 2776-1 ####[facility] LABORATORYCLIA [id number] [address] ALP [Catalytic activity/Vol] 76 U/L Normal 34-123 [facility] Comment on above: Order Comment: Speci men Type: BLOOD SPECIMENOrdering Facility: [facility] Address: [address] [place] [address] Performed By: #### 3 3959-8, 12960-3, 69657-7, 2156-6, 2777-1 ####[facility] LABORATORYCLIA [id number] [address] STATES OF [facility] ALT With P-5'-P [Catalytic activity/Vol] 8 U/L Normal 7-38 [facility] Comment on above: Order Comment: Speci men Type: BLOOD SPECIMENOrdering Facility: [facility] Address: [address] [place] [address] Performed By: #### 3 3959-8, 46979-9, 36096-3, 2157-01, 2776-1 ####[facility]CLIA [id number] [address] STATES OF [facility] AST With P-5'-P [Catalytic activity/Vol] 13 U/L Normal 13-35 [facility] Comment on above: Order Comment: Speci men Type: BLOOD SPECIMENOrdering Facility: [facility] Address: [address] [place] [address] Performed By: #### 3 3959-8, 16856-3, 48856-9, 2157-01, 2776-1 ####[facility] LABORATORYCLIA [id number] [address] [place] Bilirubin [Mass/Vol] 0.4 mg/dL Normal 0.2-1.3 [facility] Comment on above: Order Comment: Speci men Type: BLOOD SPECIMENOrdering Facility: [facility] Address: [address] [place] [address] Performed By: #### 3 3959-8, 02121-0, 93640-1, 2156-6, 2777-1 ####[facility] LABORATORYCLIA [id number] [place] [address] [place] Bilirubin.conjugated [Mass/Vol] mg/dL Normal <0.2 [facility] Comment on above: Order Comment: Speci men Type: BLOOD SPECIMENOrdering Facility: [facility] Address: [address] [place] [address] Performed By: #### 3 3959-8, 15769-5, 16560-0, 2157-6, 2777-1 ####[facility] LABORATORYCLIA [id number] [place] [address] [place] Protein [Mass/Vol] 6.9 g/dL Normal 6.3-8.0 [facility] Comment on above: Order Comment: Speci men Type: BLOOD SPECIMENOrdering Facility: [facility] Address: [address] [place] [address] Performed By: #### 3 3959-8, 63382-4, 85154-0, 215-6, 2777-1 ####[facility] LABORATORYCLIA [id number] [place] [address] [place] Lactate (Bld) [Moles/Vol]on 03-30-2022 Lactate [Moles/Vol] 0.8 mmol/L Normal 0.5-2.2 [facility] Comment on above: Order Comment: Speci men Type: BLOOD SPECIMENOrdering Facility: [facility] Address: [address] [place] [address] Performed By: #### 3 2693-4 ####[facility] LABORATORYCLIA [id number] [place] [address] [place] Magnesium SerPl-mCncon 03-30 Magnesium [Mass/Vol] 2.0 mg/dL Normal 1.7-2.3 [facility] Comment on above: Order Comment: Speci men Type: BLOOD SPECIMENOrdering Facility: [facility] Address: [address] [place] [address] Performed By: #### 2 4323-8, 2777-1, 40537-4 ####[facility] LABORATORYCLIA [id number] [place] [phone] [place] NUTRITIONon 03-30-2022 NUTRITION Normal [facility] PT panel Coag (PPP)on 2021 INR Coag (PPP) [Relative time] 1.0 {INR} Normal 0.9-1.3 [facility] Comment on above: Order Comment: Speci men Type: BLOOD SPECIMENOrdering Facility: [facility] Address: [address] [phone] Result Comment: Sariah min K Antagonist (VKA) Therapeutic Range: INR 2 to 3 (Target INR of 2.5)Note: For patients treated with VKA drugs, such as warfarin, the [place] [employer] 2012 Guideline recommends [...] al. Chest 2012, 141:7S-47SGloria SHEPHERD, et al. [facility] 2017, 70: 252-289 Performed By: #### 1 4979-9, 95346-7 ####[facility] LABORATORYCLIA [id number] [place] [phone] [place] PT Coag (PPP) [Time] 11.4 s Normal 9.7-13.0 [facility] Comment on above: Order Comment: Lauren santana Type: BLOOD SPECIMENOrdering Facility: [facility] Address: [address] [place] [address] Performed By: #### 1 4979-9, 18684-7 ####[facility] LABORATORYCLIA [id number] [place] [phone] [place] Phosphate SerPl-mCncon 03-30 Phosphate [Mass/Vol] 3.1 mg/dL Normal 2.7-4.8 [facility] Comment on above: Order Comment: Speci men Type: BLOOD SPECIMENOrdering Facility: [facility] Address: [address] [place] [address] Performed By: #### 3 3959-8, 88389-8, 48993-5, 2156-6, 7-1 ####[facility] LABORATORYCLIA [id number] [address] STATES OF [facility] Phosphate [Mass/Vol] 1.9 mg/dL Low 2.7-4.8 [facility] Comment on above: Order Comment: Speci men Type: BLOOD SPECIMENOrdering Facility: [facility] Address: [address] [place] [address] Performed By: #### 2 4323-8, 2777-1, 13259-2 ####[facility]CLIA [id number] [address] [place] Procalcitonin SerPl-mCncon 0 03-30-2022 Procalcitonin [Mass/Vol] 0.15 ng/mL High <0.09 [facility] Comment on above: Order Comment: Speci men Type: BLOOD SPECIMENOrdering Facility: [facility] Address: [address] [place] [address] Result Comment: For a guided interpretation of test results, please visit the Change in Procalcitonin Calculator, [email or web address]. Performed By: #### 3 3959-8, 93558-8, 25200-9, 2156-6, 2777-1 ####[facility] LABORATORYCLIA [id number] [place] [phone] [place] THERAPY NTon 03-30-2022 THERAPY NT Normal [facility] Urinalysis complete panel (U )on 03-30-2022 Bilirubin Ql (U) Negative Normal Negative [facility] Comment on above: Order Comment: Speci men Type: URINE SPECIMENOrdering Facility: [facility] Address: [address] [address] Performed By: #### 2 4356-8 ####[facility] LABORATORYCLIA [id number] [address] [place] Clarity (Unsp spec) Clear Normal Clear [facility] Comment on above: Order Comment: Speci men Type: URINE SPECIMENOrdering Facility: [facility] Address: [address] [place] [address] Performed By: #### 2 4356-8 ####[facility] LABORATORYCLIA [id number] [address] [place] Color (U) Colorless Normal yellow [facility] Comment on above: Order Comment: Speci men Type: URINE SPECIMENOrdering Facility: [facility] Address: [address] [place] [address] Performed By: #### 2 4356-8 ####[facility] LABORATORYCLIA [id number] [address] Epithelial cells LM.HPF (Urine sed) [#/Area] Few Normal [facility] Comment on above: Order Comment: Speci men Type: URINE SPECIMENOrdering Facility: [facility] Address: [address] [place] [address] Result Comment: Few Performed By: #### 2 4356-8 ####[facility] LABORATORYCLIA [id number] [address] [place] Glucose Test strip (U) [Mass/Vol] 4+ Abnormal Negative [facility] Comment on above: Order Comment: Speci men Type: URINE SPECIMENOrdering Facility: [facility] Address: [address] [place] [address] Performed By: #### 2 4356-8 ####[facility] LABORATORYCLIA [id number] [address] Hemoglobin Ql (U) Trace Abnormal Negative [facility] Comment on above: Order Comment: Speci men Type: URINE SPECIMENOrdering Facility: [facility] Address: [address] [address] Performed By: #### 2 4356-8 ####[facility] LABORATORYCLIA [id number] [address] Ketones Ql (U) 4+ Abnormal Negative [facility] Comment on above: Order Comment: Speci men Type: URINE SPECIMENOrdering Facility: [facility] Address: [address] [address] Performed By: #### 2 4356-8 ####[facility] LABORATORYCLIA [id number] [address] Leukocyte esterase Test strip Ql (U) Negative Normal Negative [facility] Comment on above: Order Comment: Speci men Type: URINE SPECIMENOrdering Facility: [facility] Address: [address] [place] [address] Performed By: #### 2 4356-8 ####[facility] LABORATORYCLIA [id number] [address] Nitrite Ql (U) Negative Normal Negative [facility] Comment on above: Order Comment: Speci men Type: URINE SPECIMENOrdering Facility: [facility] Address: [address] [place] [address] Performed By: #### 2 4356-8 ####[facility] LABORATORYCLIA [id number] [address] [place] pH (U) 5.5 [pH] Normal 5.0-8.0 [facility] Comment on above: Order Comment: Speci men Type: URINE SPECIMENOrdering Facility: [facility] Address: [address] [address] Performed By: #### 2 4356-8 ####[facility] LABORATORYCLIA [id number] [address] Protein (U) [Mass/Vol] Trace Abnormal Negative [facility] Comment on above: Order Comment: Speci men Type: URINE SPECIMENOrdering Facility: [facility] Address: [address] [place], [place] [address] Performed By: #### 2 4356-8 ####[facility] LABORATORYCLIA [id number] [address] RBC LM.HPF (Urine sed) [#/Area] 0-3 /HPF Normal 0-3 /HPF [facility] Comment on above: Order Comment: Speci men Type: URINE SPECIMENOrdering Facility: [facility] Address: [address] [place] [address] Performed By: #### 2 4356-8 ####[facility] LABORATORYCLIA [id number] [address] STATES OF [facility] Specific gravity (U) [Rel density] 1.021 Normal 1.005-1.030 [facility] Comment on above: Order Comment: Speci men Type: URINE SPECIMENOrdering Facility: [facility] Address: [address] [place] [address] Performed By: #### 2 4356-8 ####[facility] LABORATORYCLIA [id number] [address] Urobilinogen Ql (U) Normal Normal Negative [facility] Comment on above: Order Comment: Speci men Type: URINE SPECIMENOrdering Facility: [facility] Address: [address] [place] [address] Performed By: #### 2 4356-8 ####[facility] LABORATORYCLIA [id number] [address] WBC LM.HPF (Urine sed) [#/Area] 0-5 /HPF Normal 0-5 /HPF [facility] Comment on above: Order Comment: Speci men Type: URINE SPECIMENOrdering Facility: [facility] Address: [address] [place] [address] Performed By: #### 2 4356-8 ####[facility] LABORATORYCLIA [id number] [address] [place] XR ABDOMEN 1V SUPINEon 03-30 XR ABDOMEN 1V SUPINE Normal [facility] XR ABDOMEN 1V SUPINE Normal [facility] XR CHEST 1V FRONTALon 2021 XR CHEST 1V FRONTAL Normal [facility] aPTT PPPon 03-30-2022 aPTT Coag (PPP) [Time] 31.9 s Normal 23.0-32.4 [facility] Comment on above: Order Comment: Speci men Type: BLOOD SPECIMENOrdering Facility: [facility] Address: [address] [place] [address] Performed By: #### 1 4979-9, 75843-5 ####[facility] LABORATORYCLIA [id number] [address] STATES OF [facility] ALLIED HEALTHon 03-29-2022 ALLIED HEALTH Normal [facility] CBC W Auto Differential pane l (Bld)on 03-29-2022 Basophils (Bld) [#/Vol] 10*3/uL Normal <0.11 [facility] Comment on above: Order Comment: Speci men Type: BLOOD SPECIMENOrdering Facility: [facility] Address: [address] [place] [address] Performed By: #### 5 7021-8 ####[facility] LABORATORYCLIA [id number] [address] [place] Basophils/100 WBC (Bld) 0.1 % Normal [facility] Comment on above: Order Comment: Speci men Type: BLOOD SPECIMENOrdering Facility: [facility] Address: [address] [place] [address] Performed By: #### 5 7021-8 ####[facility] LABORATORYCLIA [id number] [address] [place] Differential cell count method Nom (Bld) Auto Normal [facility] Comment on above: Order Comment: Speci men Type: BLOOD SPECIMENOrdering Facility: [facility] Address: [address] [place] [address] Performed By: #### 5 7021-8 ####[facility] LABORATORYCLIA [id number] [place] [address] [place] Eosinophils (Bld) [#/Vol] 10*3/uL Normal <0.46 [facility] Comment on above: Order Comment: Speci men Type: BLOOD SPECIMENOrdering Facility: [facility] Address: [address] [place] [address] Performed By: #### 5 7021-8 ####[facility] LABORATORYCLIA [id number] [address] Eosinophils/100 WBC (Bld) 0.1 % Normal [facility] Comment on above: Order Comment: Speci men Type: BLOOD SPECIMENOrdering Facility: [facility] Address: [address] [place] [address] Performed By: #### 5 7021-8 ####[facility] LABORATORYCLIA [id number] [address] Erythrocyte distribution width (RBC) [Ratio] 18.8 % High 11.5-15.0 [facility] Comment on above: Order Comment: Speci men Type: BLOOD SPECIMENOrdering Facility: [facility] Address: [address] [place] [address] Performed By: #### 5 7021-8 ####[facility] LABORATORYCLIA [id number] [address] Hematocrit (Bld) [Volume fraction] 32.5 % Low 36.0-46.0 [facility] Comment on above: Order Comment: Speci men Type: BLOOD SPECIMENOrdering Facility: [facility] Address: [address] [place] [address] Performed By: #### 5 7021-8 ####[facility] LABORATORYCLIA [id number] [address] Hemoglobin (Bld) [Mass/Vol] 9.9 g/dL Low 11.5-15.5 [facility] Comment on above: Order Comment: Speci men Type: BLOOD SPECIMENOrdering Facility: [facility] Address: [address] [place] [address] Performed By: #### 5 7021-8 ####[facility] LABORATORYCLIA [id number] [address] IMMATURE GRAN % 0.5 % Normal [facility] Comment on above: Order Comment: Speci men Type: BLOOD SPECIMENOrdering Facility: [facility] Address: [address] [place] [address] Performed By: #### 5 7021-8 ####[facility] LABORATORYCLIA [id number] [address] IMMATURE GRAN ABS 0.07 k/uL Normal <0.10 [facility] Comment on above: Order Comment: Speci men Type: BLOOD SPECIMENOrdering Facility: [facility] Address: [address] [place] [address] Performed By: #### 5 7021-8 ####[facility] LABORATORYCLIA [id number] [address] Lymphocytes (Bld) [#/Vol] 1.04 10*3/uL Normal 1.00-4.0 0 [facility] Comment on above: Order Comment: Speci men Type: BLOOD SPECIMENOrdering Facility: [facility] Address: [address] [place] [address] Performed By: #### 5 7021-8 ####[facility] LABORATORYCLIA [id number] [address] Lymphocytes/100 WBC (Bld) 7.7 % Normal [facility] Comment on above: Order Comment: Speci men Type: BLOOD SPECIMENOrdering Facility: [facility] Address: [address] [place] [address] Performed By: #### 5 7021-8 ####[facility] LABORATORYCLIA [id number] [address] MCH (RBC) [Entitic mass] 29.6 pg Normal 26.0-34.0 [facility] Comment on above: Order Comment: Speci men Type: BLOOD SPECIMENOrdering Facility: [facility] Address: [address] [address] Performed By: #### 5 7021-8 ####[facility] LABORATORYCLIA [id number] [address] STATES [facility] MCHC (RBC) [Mass/Vol] 30.5 g/dL Normal 30.5-36.0 [facility] Comment on above: Order Comment: Speci men Type: BLOOD SPECIMENOrdering Facility: [facility] Address: [address] [place] [address] Performed By: #### 5 7021-8 ####[facility] LABORATORYCLIA [id number] [address] [place] [facility] MCV (RBC) [Entitic vol] 97.0 fL Normal 80.0-100.0 [facility] Comment on above: Order Comment: Speci men Type: BLOOD SPECIMENOrdering Facility: [facility] Address: [address] [place] [address] Performed By: #### 5 7021-8 ####[facility] LABORATORYCLIA [id number] [address] OF [facility] Monocytes (Bld) [#/Vol] 0.95 10*3/uL High <0.87 [facility] Comment on above: Order Comment: Speci men Type: BLOOD SPECIMENOrdering Facility: [facility] Address: [address] [place] [address] Performed By: #### 5 7021-8 ####[facility] LABORATORYCLIA [id number] [address] Monocytes/100 WBC (Bld) 7.0 % Normal [facility] Comment on above: Order Comment: Speci men Type: BLOOD SPECIMENOrdering Facility: [facility] Address: [address] [place] [address] Performed By: #### 5 7021-8 ####[facility] LABORATORYCLIA [id number] [address] [place] Neutrophils (Bld) [#/Vol] 11.47 10*3/uL High 1.45-7. 50 [facility] Comment on above: Order Comment: Speci men Type: BLOOD SPECIMENOrdering Facility: [facility] Address: [address] [place] [address] Performed By: #### 5 7021-8 ####[facility] LABORATORYCLIA [id number] [address] Neutrophils/100 WBC (Bld) 84.6 % Normal [facility] Comment on above: Order Comment: Speci men Type: BLOOD SPECIMENOrdering Facility: [facility] Address: [address] [place] [address] Performed By: #### 5 7021-8 ####[facility] LABORATORYCLIA [id number] [address] [place] Nucleated RBC (Bld) [#/Vol] 10*3/uL Normal <0.01 [facility] Comment on above: Order Comment: Speci men Type: BLOOD SPECIMENOrdering Facility: [facility] Address: [address] [place] [address] Performed By: #### 5 7021-8 ####[facility] LABORATORYCLIA [id number] [address] [place] Nucleated RBC/100 WBC (Bld) [Ratio] 0.0 /100 WBC Normal [facility] Comment on above: Order Comment: Speci men Type: BLOOD SPECIMENOrdering Facility: [facility] Address: [address] [place] [address] Performed By: #### 5 7021-8 ####[facility] LABORATORYCLIA [id number] [place] [address] [place] Platelet mean volume (Bld) [Entitic vol] 9.0 fL Normal 9.0-12.7 [facility] Comment on above: Order Comment: Speci men Type: BLOOD SPECIMENOrdering Facility: [facility] Address: [address] [place] [address] Performed By: #### 5 7021-8 ####[facility] LABORATORYCLIA [id number] [address] OF [facility] Platelets (Bld) [#/Vol] 342 10*3/uL Normal 150-400 [facility] Comment on above: Order Comment: Speci men Type: BLOOD SPECIMENOrdering Facility: [facility] Address: [address] [place] [address] Performed By: #### 5 7021-8 ####[facility] LABORATORYCLIA [id number] [address] OF [facility] RBC (Bld) [#/Vol] 3.35 10*6/uL Low 3.90-5.20 [facility] Comment on above: Order Comment: Speci men Type: BLOOD SPECIMENOrdering Facility: [facility] Address: [address] [place] [address] Performed By: #### 5 7021-8 ####[facility] LABORATORYCLIA [id number] [address] WBC (Bld) [#/Vol] 13.56 10*3/uL High 3.70-11.00 [facility] Comment on above: Order Comment: Speci men Type: BLOOD SPECIMENOrdering Facility: [facility] Address: [address] [place] [address] Performed By: #### 5 7021-8 ####[facility] LABORATORYCLIA [id number] [address] OF [facility] CT BRAIN WO IVCONon 03-29-20 CT BRAIN WO IVCON Normal [facility] Comprehensive metabolic 2000 panelon 03-29-2022 Albumin [Mass/Vol] 4.2 g/dL Normal 3.9-4.9 [facility] Comment on above: Order Comment: Speci men Type: BLOOD SPECIMENOrdering Facility: [facility] Address: [address] [place] [address] Performed By: #### 1 9123-9, 63023-5, 2777-1 ####[facility] LABORATORYCLIA [id number] [address] OF [facility] ALP [Catalytic activity/Vol] 79 U/L Normal 34-123 [facility] Comment on above: Order Comment: Speci men Type: BLOOD SPECIMENOrdering Facility: [facility] Address: [address] [place] [address] Performed By: #### 1 9123-9, 53654-5, 2777-1 ####[facility] LABORATORYCLIA [id number] [address] STATES OF [facility] ALT With P-5'-P [Catalytic activity/Vol] 10 U/L Normal 7-38 [facility] Comment on above: Order Comment: Speci men Type: BLOOD SPECIMENOrdering Facility: [facility] Address: [address] [place] [address] Performed By: #### 1 9123-9, 48821-3, 277-1 ####[facility] LABORATORYCLIA [id number] [address] OF [facility] Anion gap [Moles/Vol] 15 mmol/L Normal 9-18 [facility] Comment on above: Order Comment: Speci men Type: BLOOD SPECIMENOrdering Facility: [facility] Address: [address] [place] [address] Performed By: #### 1 9123-9, 33012-4, 2776-1 ####[facility] LABORATORYCLIA [id number] [address] STATES OF [facility] AST With P-5'-P [Catalytic activity/Vol] 11 U/L Low 13-35 [facility] Comment on above: Order Comment: Speci men Type: BLOOD SPECIMENOrdering Facility: [facility] Address: [address] [place] [address] Performed By: #### 1 9123-9, 94321-1, 2777-1 ####[facility] LABORATORYCLIA [id number] [place] [address] [place] Bilirubin [Mass/Vol] 0.2 mg/dL Normal 0.2-1.3 [facility] Comment on above: Order Comment: Speci men Type: BLOOD SPECIMENOrdering Facility: [facility] Address: [address] [place] [address] Performed By: #### 1 9123-9, 92292-9, 277- ####[facility] LABORATORYCLIA [id number] [place] [address] [place] Calcium [Mass/Vol] 7.9 mg/dL Low 8.5-10.2 [facility] Comment on above: Order Comment: Speci men Type: BLOOD SPECIMENOrdering Facility: [facility] Address: [address] [place] [address] Performed By: #### 1 9123-9, 97774-4, 27702-15 ####[facility] LABORATORYCLIA [id number] [place] [address] [place] Chloride [Moles/Vol] 101 mmol/L Normal 97-105 [facility] Comment on above: Order Comment: Speci men Type: BLOOD SPECIMENOrdering Facility: [facility] Address: [address] [place] [address] Performed By: #### 1 23-9, , 2776-08 ####[facility] LABORATORYCLIA [id number] [place] [address] [place] CO2 [Moles/Vol] 22 mmol/L Normal 22-30 [facility] Comment on above: Order Comment: Speci men Type: BLOOD SPECIMENOrdering Facility: [facility] Address: [address] [place] [address] Performed By: #### 1 9123-9, 69173-7, 277- ####[facility] LABORATORYCLIA [id number] [place] [address] [place] Creatinine [Mass/Vol] 0.39 mg/dL Low 0.58-0.96 [facility] Comment on above: Order Comment: Speci men Type: BLOOD SPECIMENOrdering Facility: [facility] Address: [address] [place] [address] Performed By: #### 1 9123-9, 84742-1, 2776-08 ####[facility] LABORATORYCLIA [id number] [address] [place] ESTIMATED GLOMERULAR FILTRATION RATE 109 mL/min/1.73m??? Normal >=60 [facility] Comment on above: Order Comment: Lauren santana Type: BLOOD SPECIMENOrdering Facility: [facility] Address: [address] [place] [address] Result Comment: Ameena mated Glomerular Filtration Rate [...] actual GFR. Performed By: #### 1 9123-9, 69521-9, 2776-08 ####[facility]CLIA [id number] [address] [place] Glucose [Mass/Vol] 113 mg/dL High 74-99 [facility] Comment on above: Order Comment: Lauren santana Type: BLOOD SPECIMENOrdering Facility: [facility] Address: [address] [place] [address] Result Comment: The [place] [employer] (ADA) provides guidance for cutoff [...] Standards of Medical Care in Diabetes 2016, [place] [employer]. Diabetes Care. 2016.39(Suppl 1). Performed By: #### 1 9123-9, 88138-4, 2776-08 ####[facility] LABORATORYCLIA [id number] [place] [address] [place] Potassium [Moles/Vol] 3.4 mmol/L Low 3.7-5.1 [facility] Comment on above: Order Comment: Speci men Type: BLOOD SPECIMENOrdering Facility: [facility] Address: [address] [place] [address] Performed By: #### 1 9123-9, 24293-6, 2777-1 ####[facility] LABORATORYCLIA [id number] [place] [address] [place] Protein [Mass/Vol] 6.4 g/dL Normal 6.3-8.0 [facility] Comment on above: Order Comment: Speci men Type: BLOOD SPECIMENOrdering Facility: [facility] Address: [address] [place] [address] Performed By: #### 1 9123-9, 17011-6, 277- ####[facility] LABORATORYCLIA [id number] [place] [address] [place] Sodium [Moles/Vol] 138 mmol/L Normal 136-144 [facility] Comment on above: Order Comment: Speci men Type: BLOOD SPECIMENOrdering Facility: [facility] Address: [address] [place] [address] Performed By: #### 1 9123-9, 98770-0, 2777- ####[facility] LABORATORYCLIA [id number] [place] [address] [place] Urea nitrogen [Mass/Vol] 8 mg/dL Normal 7-21 [facility] Comment on above: Order Comment: Speci men Type: BLOOD SPECIMENOrdering Facility: [facility] Address: [address] [place] [address] Performed By: #### 1 9123-9, 22234-3, 2777-1 ####[facility] LABORATORYCLIA [id number] [place] [address] [place] Magnesium SerPl-mCncon 03-29 Magnesium [Mass/Vol] 1.5 mg/dL Low 1.7-2.3 [facility] Comment on above: Order Comment: Speckatie santana Type: BLOOD SPECIMENOrdering Facility: [facility] Address: [address] [place] [address] Performed By: #### 1 9123-9, 10708-1, 2777-1 ####[facility] LABORATORYCLIA [id number] [address] OF [facility] NURSING PROGon 03-29-2022 NURSING PROG Normal [facility] PT panel Coag (PPP)on 2021 INR Coag (PPP) [Relative time] 1.0 {INR} Normal 0.9-1.3 [facility] Comment on above: Order Comment: Lauren santana Type: BLOOD SPECIMENOrdering Facility: [facility] Address: [address] [place] [address] Result Comment: Sariah min K Antagonist (VKA) Therapeutic Range: INR 2 to 3 (Target INR of 2.5)Note: For patients treated with VKA drugs, such as warfarin, the [place] [employer] 2012 Guideline recommends [...] 70: 252-289 Performed By: #### 3 4528-0, 81653-8 ####[facility] LABORATORYCLIA [id number] [address] [place] PT Coag (PPP) [Time] 11.4 s Normal 9.7-13.0 [facility] Comment on above: Order Comment: Speci men Type: BLOOD SPECIMENOrdering Facility: [facility] Address: [address] [place] [address] Performed By: #### 3 4528-0, 53527-8 ####[facility] LABORATORYCLIA [id number] [address] [place] Phosphate SerPl-mCncon 03-29 Phosphate [Mass/Vol] 3.2 mg/dL Normal 2.7-4.8 [facility] Comment on above: Order Comment: Speci men Type: BLOOD SPECIMENOrdering Facility: [facility] Address: [address] [place] [address] Performed By: #### 1 9123-9, 19078-7, 2777-1 ####[facility] LABORATORYCLIA [id number] [address] THERAPY NTon 03-29-2022 THERAPY NT Normal [facility] THERAPY NT Normal [facility] THERAPY NT Normal [facility] aPTT PPPon 03-29-2022 aPTT Coag (PPP) [Time] 29.0 s Normal 23.0-32.4 [facility] Comment on above: Order Comment: Speci men Type: BLOOD SPECIMENOrdering Facility: [facility] Address: [address] [place] [address] Performed By: #### 3 4528-0, 04524-7 ####[facility] LABORATORYCLIA [id number] [address] [place] ANES POSTPROC EVALon 022 ANES POSTPROC EVAL Normal [facility] ANES PRE-OPon 03-28-2022 ANES PRE-OP Normal [facility] Absolute lymphocyte counton 03-28-2022 Lymphocytes Auto (Unsp spec) [#/Vol] 2.37 10*3/uL 0.83-4.[address] [facility] Work Phone: Basophil percentageon 2021 Basophils/100 WBC (Bld) 0.3 % 0-1 [facility] Work Phone: Chloride [Moles/Vol] 112 mmol/L 98-107 [facility] Work Phone: Eosinophils/100 WBC (Bld) 0.8 % 0-[address] [facility] Work Phone: Glucose [Mass/Vol] 143 mg/dL 74-106 [facility] Work Phone: Comment on above: Fasting Glucose resu lt greater than or equal to 126 mg/dL suggests DIABETES MELLITUS per A.D.A. criteria. Neutrophils (Bld) [#/Vol] 8.3 10*3/uL 2.0-7.[address] [facility] Work Phone: Neutrophils/100 WBC (Bld) 69.4 % 47-[address] [facility] Work Phone: Potassium [Moles/Vol] 4.0 mmol/L 3.5-5.1 [facility] Work Phone: Sodium [Moles/Vol] 142 mmol/L 136-145 [facility] Work Phone: WBC (Bld) [#/Vol] 12.0 10*3/uL 4.4-11.0 [facility] Work Phone: Blood erythrocytes count (nu mber/volume)on 03-28-2022 RBC (Bld) [#/Vol] 3.94 10*6/uL 4.2-5.4 [facility] Work Phone: Blood hemoglobin measurement (mass/volume)on 03-28-2022 Hemoglobin (Bld) [Mass/Vol] 11.9 g/dL 12.0-15.[address] [facility] Work Phone: Blood lymphocytes/100 leukoc yteson 03-28-2022 Lymphocytes/100 WBC (Bld) 19.8 % 19-[address] [facility] Work Phone: [phone] Blood monocytes/100 leukocyt eson 03-28-2022 Monocytes/100 WBC (Bld) 8.5 % 0-10 [facility] Work Phone: Blood platelet mean volumeon 03-28-2022 Platelet mean volume (Bld) [Entitic vol] 8.7 fL 6.2-12.[address] [facility] Work Phone: CBC W Auto Differential pane l (Bld)on 03-28-2022 Basophils (Bld) [#/Vol] 0.05 10*3/uL Normal <0.11 [facility] Comment on above: Order Comment: Speci men Type: BLOOD SPECIMENOrdering Facility: [facility] Address: [address] [place] [address] Performed By: #### 5 7021-8 ####[facility] LABORATORYCLIA [id number] [address] [place] Basophils/100 WBC (Bld) 0.3 % Normal [facility] Comment on above: Order Comment: Speci men Type: BLOOD SPECIMENOrdering Facility: [facility] Address: [address] [place] [address] Performed By: #### 5 7021-8 ####[facility] LABORATORYCLIA [id number] [address] [place] Differential cell count method Nom (Bld) Auto Normal [facility] Comment on above: Order Comment: Speci men Type: BLOOD SPECIMENOrdering Facility: [facility] Address: [address] [place] [address] Performed By: #### 5 7021-8 ####[facility] LABORATORYCLIA [id number] [place] [address] [place] Eosinophils (Bld) [#/Vol] 10*3/uL Normal <0.46 [facility] Comment on above: Order Comment: Speci men Type: BLOOD SPECIMENOrdering Facility: [facility] Address: [address] [place] [address] Performed By: #### 5 7021-8 ####[facility] LABORATORYCLIA [id number] [address] [place] Eosinophils/100 WBC (Bld) 0.1 % Normal [facility] Comment on above: Order Comment: Speci men Type: BLOOD SPECIMENOrdering Facility: [facility] Address: [address] [place] [address] Performed By: #### 5 7021-8 ####[facility] LABORATORYCLIA [id number] [address] [place] Erythrocyte distribution width (RBC) [Ratio] 18.6 % High 11.5-15.0 [facility] Comment on above: Order Comment: Speci men Type: BLOOD SPECIMENOrdering Facility: [facility] Address: [address] [place] [address] Performed By: #### 5 7021-8 ####[facility] LABORATORYCLIA [id number] [address] OF [facility] Hematocrit (Bld) [Volume fraction] 38.0 % Normal 36.0-46.0 [facility] Comment on above: Order Comment: Speci men Type: BLOOD SPECIMENOrdering Facility: [facility] Address: [address] [place] [address] Performed By: #### 5 7021-8 ####[facility] LABORATORYCLIA [id number] [address] [place] Hemoglobin (Bld) [Mass/Vol] 11.8 g/dL Normal 11.5-15.5 [facility] Comment on above: Order Comment: Speci men Type: BLOOD SPECIMENOrdering Facility: [facility] Address: [address] [place] [address] Performed By: #### 5 7021-8 ####[facility] LABORATORYCLIA [id number] [address] [place] IMMATURE GRAN % 1.0 % Normal [facility] Comment on above: Order Comment: Speci men Type: BLOOD SPECIMENOrdering Facility: [facility] Address: [address] [place] [address] Performed By: #### 5 7021-8 ####[facility] LABORATORYCLIA [id number] [address] IMMATURE GRAN ABS 0.17 k/uL High <0.10 [facility] Comment on above: Order Comment: Speci men Type: BLOOD SPECIMENOrdering Facility: [facility] Address: [address] [place] [address] Performed By: #### 5 7021-8 ####[facility] LABORATORYCLIA [id number] [address] Lymphocytes (Bld) [#/Vol] 1.23 10*3/uL Normal 1.00-4.0 0 [facility] Comment on above: Order Comment: Speci men Type: BLOOD SPECIMENOrdering Facility: [facility] Address: [address] [place] [address] Performed By: #### 5 7021-8 ####[facility] LABORATORYCLIA [id number] [address] Lymphocytes/100 WBC (Bld) 7.2 % Normal [facility] Comment on above: Order Comment: Speci men Type: BLOOD SPECIMENOrdering Facility: [facility] Address: [address] [place] [address] Performed By: #### 5 7021-8 ####[facility] LABORATORYCLIA [id number] [address] MCH (RBC) [Entitic mass] 29.9 pg Normal 26.0-34.0 [facility] Comment on above: Order Comment: Speci men Type: BLOOD SPECIMENOrdering Facility: [facility] Address: [address] [place] [address] Performed By: #### 5 7021-8 ####[facility] LABORATORYCLIA [id number] [address] MCHC (RBC) [Mass/Vol] 31.1 g/dL Normal 30.5-36.0 [facility] Comment on above: Order Comment: Speci men Type: BLOOD SPECIMENOrdering Facility: [facility] Address: [address] [place] [address] Performed By: #### 5 7021-8 ####[facility] LABORATORYCLIA [id number] [address] [place] MCV (RBC) [Entitic vol] 96.4 fL Normal 80.0-100.0 [facility] Comment on above: Order Comment: Speci men Type: BLOOD SPECIMENOrdering Facility: [facility] Address: [address] [place] [address] Performed By: #### 5 7021-8 ####[facility] LABORATORYCLIA [id number] [address] [place] Monocytes (Bld) [#/Vol] 0.97 10*3/uL High <0.87 [facility] Comment on above: Order Comment: Speci men Type: BLOOD SPECIMENOrdering Facility: [facility] Address: [address] [place] [address] Performed By: #### 5 7021-8 ####[facility] LABORATORYCLIA [id number] [address] [place] Monocytes/100 WBC (Bld) 5.7 % Normal [facility] Comment on above: Order Comment: Speci men Type: BLOOD SPECIMENOrdering Facility: [facility] Address: [address] [place] [address] Performed By: #### 5 7021-8 ####[facility] LABORATORYCLIA [id number] [address] [place] Neutrophils (Bld) [#/Vol] 14.71 10*3/uL High 1.45-7. 50 [facility] Comment on above: Order Comment: Speci men Type: BLOOD SPECIMENOrdering Facility: [facility] Address: [address] [place] [address] Performed By: #### 5 7021-8 ####[facility] LABORATORYCLIA [id number] [address] [place] Neutrophils/100 WBC (Bld) 85.7 % Normal [facility] Comment on above: Order Comment: Speci men Type: BLOOD SPECIMENOrdering Facility: [facility] Address: [address] Performed By: #### 5 7021-8 ####[facility] LABORATORYCLIA [id number] [address] Nucleated RBC (Bld) [#/Vol] 10*3/uL Normal <0.01 [facility] Comment on above: Order Comment: Speci men Type: BLOOD SPECIMENOrdering Facility: [facility] Address: [address] Performed By: #### 5 7021-8 ####[facility] LABORATORYCLIA [id number] [address] [place] Nucleated RBC/100 WBC (Bld) [Ratio] 0.0 /100 WBC Normal [facility] Comment on above: Order Comment: Speci men Type: BLOOD SPECIMENOrdering Facility: [facility] Address: [address] Performed By: #### 5 7021-8 ####[facility] LABORATORYCLIA [id number] [address] [place] Platelet mean volume (Bld) [Entitic vol] 9.2 fL Normal 9.0-12.7 [facility] Comment on above: Order Comment: Speci men Type: BLOOD SPECIMENOrdering Facility: [facility] Address: [address] Performed By: #### 5 7021-8 ####[facility] LABORATORYCLIA [id number] [address] [place] Platelets (Bld) [#/Vol] 362 10*3/uL Normal 150-400 [facility] Comment on above: Order Comment: Speci men Type: BLOOD SPECIMENOrdering Facility: [facility] Address: [address] [place], [place] [address] Performed By: #### 5 7021-8 ####[facility] LABORATORYCLIA [id number] [address] [place] RBC (Bld) [#/Vol] 3.94 10*6/uL Normal 3.90-5.20 [facility] Comment on above: Order Comment: Speci men Type: BLOOD SPECIMENOrdering Facility: [facility] Address: [address] [place] [address] Performed By: #### 5 7021-8 ####[facility] LABORATORYCLIA [id number] [address] [place] WBC (Bld) [#/Vol] 17.15 10*3/uL High 3.70-11.00 [facility] Comment on above: Order Comment: Speci men Type: BLOOD SPECIMENOrdering Facility: [facility] Address: [address] [place] [address] Performed By: #### 5 7021-8 ####[facility] LABORATORYCLIA [id number] [address] [place] CONSULTon 03-28-2022 CONSULT Normal [facility] CT BRAIN WO IVCONon 03-28-20 CT BRAIN WO IVCON Normal [facility] Calcium.ionized [Moles/Vol]o n 03-28-2022 Calcium.ionized (BldV) [Mass/Vol] 1.08 mmol/L Normal 1.08-1.30 [facility] Comment on above: Order Comment: Speci men Type: BLOOD SPECIMENOrdering Facility: [facility] Address: [address] [place] [address] Performed By: #### 1 995-0 ####[facility] LABORATORYCLIA [id number] [address] Calcium.ionized adjusted to pH 7.4 (Bld) [Moles/Vol] 1.02 mmol/L Low 1.08-1.30 [facility] Comment on above: Order Comment: Speci men Type: BLOOD SPECIMENOrdering Facility: [facility] Address: [address] [place] [address] Performed By: #### 1 995-0 ####[facility] [facility]ATORYCLIA [id number] [address] Comprehensive metabolic 2000 panelon 03-28-2022 Albumin [Mass/Vol] 4.8 g/dL Normal 3.9-4.9 [facility] Comment on above: Order Comment: Speci men Type: BLOOD SPECIMENOrdering Facility: [facility] Address: [address] [place] [address] Performed By: #### 1 9123-9, 2777-, 69295-0 ####[facility] LABORATORYCLIA [id number] [address] OF [facility] ALP [Catalytic activity/Vol] 89 U/L Normal 34-123 [facility] Comment on above: Order Comment: Speci men Type: BLOOD SPECIMENOrdering Facility: [facility] Address: [address] [place] [address] Performed By: #### 1 9123-9, 27702-15, 22600-8 ####[facility] [id number] [address] ALT With P-5'-P [Catalytic activity/Vol] 12 U/L Normal 7-38 [facility] Comment on above: Order Comment: Speci men Type: BLOOD SPECIMENOrdering Facility: [facility] Address: [address] [place] [address] Performed By: #### 1 9123-9, 2777, 34237-7 ####[facility] LABORATORYCLIA [id number] [address] Anion gap [Moles/Vol] 14 mmol/L Normal 9-18 [facility] Comment on above: Order Comment: Speci men Type: BLOOD SPECIMENOrdering Facility: [facility] Address: [address] [place] [address] Performed By: #### 1 9123-9, 2777-, 06164-0 ####[facility] LABORATORYCLIA [id number] [place] [address] [place] AST With P-5'-P [Catalytic activity/Vol] 12 U/L Low 13-35 [facility] Comment on above: Order Comment: Speci men Type: BLOOD SPECIMENOrdering Facility: [facility] Address: [address] [place] [address] Performed By: #### 1 9123-9, 2776-08, 21039-9 ####[facility] LABORATORYCLIA [id number] [place] [address] [place] Bilirubin [Mass/Vol] 0.2 mg/dL Normal 0.2-1.3 [facility] Comment on above: Order Comment: Speci men Type: BLOOD SPECIMENOrdering Facility: [facility] Address: [address] [place] [address] Performed By: #### 1 9123-9, 2776-08, ####[facility] LABORATORYCLIA [id number] [place] [address] [place] Calcium [Mass/Vol] 8.7 mg/dL Normal 8.5-10.2 [facility] Comment on above: Order Comment: Speci men Type: BLOOD SPECIMENOrdering Facility: [facility] Address: [address] [place] [address] Performed By: #### 1 9123-9, 2776-08, ####[facility] LABORATORYCLIA [id number] [place] [address] [place] Chloride [Moles/Vol] 103 mmol/L Normal 97-105 [facility] Comment on above: Order Comment: Speci men Type: BLOOD SPECIMENOrdering Facility: [facility] Address: [address] [place] [address] Performed By: #### 1 9123-9, 2776-08, 35521-0 ####[facility] LABORATORYCLIA [id number] [place] [address] [place] CO2 [Moles/Vol] 21 mmol/L Low 22-30 [facility] Comment on above: Order Comment: Speci men Type: BLOOD SPECIMENOrdering Facility: [facility] Address: [address] [address] Performed By: #### 1 9123-9, 2777-, 22536-3 ####[facility]CLIA [id number] [address] [place] Creatinine [Mass/Vol] 0.40 mg/dL Low 0.58-0.96 [facility] Comment on above: Order Comment: Speci men Type: BLOOD SPECIMENOrdering Facility: [facility] Address: [address] [place] [address] Performed By: #### 1 9123-9, 2777, 31124-4 ####[facility] [id number] [address] [place] ESTIMATED GLOMERULAR FILTRATION RATE 109 mL/min/1.73m??? Normal >=60 [facility] Comment on above: Order Comment: Speci men Type: BLOOD SPECIMENOrdering Facility: [facility] Address: [address] [place] [address] Result Comment: Ameena mated Glomerular Filtration Rate [...] GFR. Performed By: #### 1 9123-9, 2777-, 37248-9 ####[facility] LABORATORYIA [id number] [place] [address] [place] Glucose [Mass/Vol] 187 mg/dL High 74-99 [facility] Comment on above: Order Comment: Speci men Type: BLOOD SPECIMENOrdering Facility: [facility] Address: [address] [place] [address] Result Comment: The [place] [employer] (ADA) provides guidance for cutoff [...] Standards of Medical Care in Diabetes 2016, [place] [employer]. Diabetes Care. 2016.39(Suppl 1). Performed By: #### 1 9123-9, 2776-08, ####[facility] LABORATORYCLIA [id number] [place] [address] [place] Potassium [Moles/Vol] 4.0 mmol/L Normal 3.7-5.1 [facility] Comment on above: Order Comment: Lauren santana Type: BLOOD SPECIMENOrdering Facility: [facility] Address: [address] [place] [address] Performed By: #### 1 9123-9, 2776-08, ####[facility]CLIA [id number] [place] [address] [place] Protein [Mass/Vol] 7.2 g/dL Normal 6.3-8.0 [facility] Comment on above: Order Comment: Lauren santana Type: BLOOD SPECIMENOrdering Facility: [facility] Address: [address] [place] [address] Performed By: #### 1 9123-9, 2776-08, ####[facility] LABORATORYCLIA [id number] [place] [address] [place] Sodium [Moles/Vol] 138 mmol/L Normal 136-144 [facility] Comment on above: Order Comment: Lauren santana Type: BLOOD SPECIMENOrdering Facility: [facility] Address: [address] [address] Performed By: #### 1 9123-9, 2776-08, 15453-6 ####[facility] LABORATORYCLIA [id number] [address] [place] Urea nitrogen [Mass/Vol] 9 mg/dL Normal 7-21 [facility] Comment on above: Order Comment: Speci men Type: BLOOD SPECIMENOrdering Facility: [facility] Address: [address] [place] [address] Performed By: #### 1 9123-9, 2777-1, 08331-1 ####[facility] LABORATORYCLIA [id number] [address] [place] Determination of erythrocyte mean corpuscular volume (MCV)on 03-28-2022 MCV (RBC) [Entitic vol] 98.0 fL 81-99 [facility] Work Phone: ED NOTEon 03-28-2022 ED NOTE HNO ID: [id number] Author: Savana Sotelo RN Service: ? Author Type: Registered Nurse Type: ED Notes Filed: 03/28/2022 1:12 PM Note Text: Normal [facility] ED NOTE HNO ID: [id number] Author: Isreal Sow RN Service: ? Author Type: Registered Nurse Type: ED Notes Filed: 03/28/2022 12:51 PM Note Text: Bed: [address] [place] [address] Expected date: Expected time: Means of arrival: Comments: [place] - SDH Normal [facility] ED PROV NOTEon 03-28-2022 ED PROV NOTE Normal [facility] Erythrocyte sedimentation ra coco 03-28-2022 ESR (Bld) [Velocity] 21 mm/h 0-30 [facility] Work Phone: HISTORY PHYSICALon 2 HISTORY PHYSICAL Normal [facility] Hematocrit Auto (Bld) [Volum e fraction]on 03-28-2022 Hematocrit (Bld) [Volume fraction] 38.6 % 37-[address] [facility] Work Phone: INR in Blood by Coagulation assayon 03-28-2022 INR Coag (Bld) [Relative time] 1.0 {INR} [facility] Work Phone: Laboratory - Chemistry and C hemistry - challengeon 03-28-2022 CO2 [Moles/Vol] 23.0 mmol/L 21.0-32.[address] [facility] Work Phone: Urea nitrogen/Creatinine [Mass ratio] 21.3 mg/mg 10-[address] [facility] Work Phone: Laboratory - Coagulationon 0 03-28-2022 aPTT Coag (Bld) [Time] 35.1 s 24.1-36.2 Wo breanna [facility] Work Phone: PT Coag (PPP) [Time] 12.7 s 11.7-14.[address] [facility] Work Phone: Laboratory - Hematology and Cell countson 03-28-2022 Anisocytosis Ql (Bld) 1+ [facility] Work Phone: Erythrocyte distribution width (RBC) [Entitic vol] 65.8 fL 35.1-43.9 [facility] Work Phone: Erythrocyte distribution width (RBC) [Ratio] 18.6 % 11.6-14.[address] [facility] Work Phone: Immature granulocytes/100 WBC (Bld) 1.200 % 0.0-0.[address] [facility] Work Phone: Comment on above: IG% - Immature Granu locytes (promyelocytes, myelocytes and metamyelocytes) > 1% indicates that a LEFT SHIFT is Present. MCH (RBC) [Entitic mass] 30.2 pg 27.0-32.[address] [facility] Work Phone: Nucleated RBC/100 WBC (Bld) [Ratio] 0 % 0-[address] [facility] Work Phone: MCHC Auto (RBC) [Mass/Vol]on 03-28-2022 MCHC (RBC) [Mass/Vol] 30.8 g/dL 32-36 [facility] Work Phone: Magnesium SerPl-mCncon 03-28 Magnesium [Mass/Vol] 1.6 mg/dL Low 1.7-2.3 [facility] Comment on above: Order Comment: Speci men Type: BLOOD SPECIMENOrdering Facility: [facility] Address: [address] [place] [address] Performed By: #### 1 9123-9, 2777-1, 33883-6 ####[facility] LABORATORYCLIA [id number] [address] Microorganism Spec Culton Microorganism identified Cx Nom (Unsp spec) CULTURE, MRSA SCREEN: Negative for methicillin resistant Staphylococcus aureus Normal [facility] Comment on above: Performed By: #### 1 1475-1 ####[facility] LABORATORYCLIA [id number] [address] No Panel Informationon 03-28 Estimated Creatinine Clearance Calc 43.18 ml/min [facility] Work Phone: Estimated GFR (MDRD) Amer 138 mL/min >[address] [facility] Work Phone: Comment on above: GFR Calc Estimated GFR (MDRD) Non-Af Amer 114 mL/min >[address] [facility] Work Phone: Comment on above: Non- GFR Calc OPERATIVE NOon 03-28-2022 OPERATIVE NO Normal [facility] PT panel Coag (PPP)on 2021 INR Coag (PPP) [Relative time] 1.0 {INR} Normal 0.9-1.3 [facility] Comment on above: Order Comment: Lauren santana Type: BLOOD SPECIMENOrdering Facility: [facility] Address: [address] [place] [address] Result Comment: Sariah min K Antagonist (VKA) Therapeutic Range: INR 2 to 3 (Target INR of 2.5)Note: For patients treated with VKA drugs, such as warfarin, the [place] [employer] 2012 Guideline recommends [...] al. Chest 2012, 141:7S-47SGloria RA, et al. [facility] 2017, 70: 252-289 Performed By: #### 3 4528-0, 39914-9 ####[facility] LABORATORYCLIA [id number] [place] [address] [place] PT Coag (PPP) [Time] 10.8 s Normal 9.7-13.0 [facility] Comment on above: Order Comment: Lauren santana Type: BLOOD SPECIMENOrdering Facility: [facility] Address: [address] [place] [address] Performed By: #### 3 4528-0, 57924-8 ####[facility]CLIA [id number] [place] [address] [place] Phosphate SerPl-mCncon 03-28 Phosphate [Mass/Vol] 3.0 mg/dL Normal 2.7-4.8 [facility] Comment on above: Order Comment: Lauren santana Type: BLOOD SPECIMENOrdering Facility: [facility] Address: [address] [place] [address] Performed By: #### 1 9123-9, 2777-1, 83481-8 ####[facility] LABORATORYCLIA [id number] [place] [address] [place] Platelets bldon 03-28-2022 Platelets (Bld) [#/Vol] 332 10*3/uL 150-[address] [facility] Work Phone: SARS-CoV-2 RNA Resp Ql NADEEM+p robeon 03-28-2022 SARS-CoV-2 (COVID-19) RNA NADEEM+probe Ql (Resp) COVID 19 RESULT: SARS-CoV-2 (Agent of COVID-19) Not Detected by RT-PCR or equivalent method. This test has been authorized by FDA under an Emergency Use Authorization (EUA). Normal [facility] Comment on above: Performed By: #### 9 4500-6 ####[facility] LABORATORYCLIA [id number] [address] SURGICAL PATHOLOGYon 022 CASE REPORT [facility] Comment on above: Order Comment: Speci men Type: BLOOD CLOT SAMPLEOrdering Facility: [facility] Address: [address] [place] [address] Result Comment: Surg ical Pathology Report Case: [id number] Provider: Bryce Greer MD Collected: 03/28/2022 04:34 PMOrdering Location: [place] [facility] Received: 03/29/2022 08:17 AMPathologist: JANAE Franklinpecimen: CLOT (DO NOT USE FOR BONE MARROW), RIGHT SUBDURAL HEMATOMA Performed By: #### S ####[facility] LABORATORYCLIA [id number] [address] FINAL DIAGNOSIS [facility] Comment on above: Order Comment: Speci men Type: BLOOD CLOT SAMPLEOrdering Facility: [facility] Address: [address] [place] [address] Result Comment: A. R ight subdural hematoma, evacuation:-- Fragments of blood clot. Performed By: #### S ####[facility] LABORATORYCLIA [id number] [address] FINAL PERFORMING LAB Normal [facility] Comment on above: Order Comment: Speci men Type: BLOOD CLOT SAMPLEOrdering Facility: [facility] Address: [address] [place] [address] Result Comment: Diag nostic interpretation performed at [facility], [address] [place] [address] CLIA# [id number] Director: Dave Ramirez M.D. Performed By: #### S ####[facility] LABORATORYCLIA [id number] [place] [address] [facility] GROSS DESCRIPTION Normal [facility] Comment on above: Order Comment: Speci men Type: BLOOD CLOT SAMPLEOrdering Facility: [facility] Address: [address] [place] [phone] Result Comment: A. C LOT (DO NOT USE FOR BONE MARROW)A. Received in formalin with right subdural hematoma are multiple red-brown hemorrhagic segments of material consistent with thrombus aggregating to 12.0 x 8.1 x 3.7 cm. Director Regulatory Affairs sections are submitted in formalin in 2 cassettes. Gross examination performed at [facility], [address] [place], [place] [address]WSQ April 01, 2022 8:23 AM Performed By: #### S ####[facility] LABORATORYCLIA [id number] [address] [place] Serum or plasma calcium joaquin urement (mass/volume)on 03-28-2022 Calcium [Mass/Vol] 9.3 mg/dL 8.5-10.1 [facility] Work Phone: Serum or plasma creatinine m easurement (mass/volume)on 03-28-2022 Creatinine [Mass/Vol] 0.56 mg/dL 0.55-1.02 [facility] Work Phone: Comment on above: The validity of the calculated GFR & GFRAA in patients over 70 years has not been determined. Clinical correlation is essential. Serum or plasma urea nitroge n measurement (mass/volume)on 03-28-2022 Urea nitrogen [Mass/Vol] 12 mg/dL 7-[address] [facility] Work Phone: TYPE + SCREENon 03-28-2022 ABO A Normal [facility] Comment on above: Order Comment: Speci men Type: BLOOD SPECIMENOrdering Facility: [facility] Address: [address] [place] [phone] Performed By: #### T SCR ####[facility] BLOOD BANKCLIA [id number] [address] [place] HISTORICAL AB SCR STATUS Negative Normal [facility] Comment on above: Order Comment: Speci men Type: BLOOD SPECIMENOrdering Facility: [facility] Address: [address] [place] [address] Performed By: #### T SCR ####[facility] BLOOD BANKCLIA [id number] [address] Rh Nom (Bld) Positive Normal [facility] Comment on above: Order Comment: Speci men Type: BLOOD SPECIMENOrdering Facility: [facility] Address: [address] [place] [address] Performed By: #### T SCR ####[facility] BLOOD BANKCLIA [id number] [address] TYPE AND SCREEN EXPIRATION 03/31/2022 23:59 Normal [facility] Comment on above: Order Comment: Speci men Type: BLOOD SPECIMENOrdering Facility: [facility] Address: [address] [place] [address] Performed By: #### T SCR ####[facility] BLOOD BANKCLIA [id number] [address] Thin prep Papanicolaou smear with manual screeningon 03-28-2022 Thin prep Papanicolaou smear with manual screening 7 5-[address] [facility] Work Phone: aPTT PPPon 03-28-2022 aPTT Coag (PPP) [Time] 27.4 s Normal 23.0-32.4 [facility] Comment on above: Order Comment: Speci men Type: BLOOD SPECIMENOrdering Facility: [facility] Address: [address] [place] [address] Performed By: #### 3 4528-0, 24301-1 ####[facility] LABORATORYCLIA [id number] [address] CNOVon 03-12-2022 CNOV Normal [facility] Absolute lymphocyte counton 03-04-2022 Lymphocytes Auto (Unsp spec) [#/Vol] 1.96 10*3/uL 0.83-4.[address] [facility] Work Phone: Basophil percentageon 2021 Basophils/100 WBC (Bld) 0.3 % 0-1 [facility] Work Phone: Eosinophils/100 WBC (Bld) 1.4 % 0-[address] [facility] Work Phone: Neutrophils (Bld) [#/Vol] 6.6 10*3/uL 2.0-7.[address] [facility] Work Phone: Neutrophils/100 WBC (Bld) 69.4 % 47-[address] [facility] Work Phone: WBC (Bld) [#/Vol] 9.4 10*3/uL 4.4-11.0 [facility] Work Phone: Blood erythrocytes count (nu mber/volume)on 03-04-2022 RBC (Bld) [#/Vol] 3.76 10*6/uL 4[facility]2-5.4 [facility]: Blood hemoglobin measurement (mass/volume)on 03-04-2022 Hemoglobin (Bld) [Mass/Vol] 11.7 g/dL 12.0-15.[address] [facility] Work Phone: Blood lymphocytes/100 leukoc yteson 03-04-2022 Lymphocytes/100 WBC (Bld) 20.8 % 19-[address] [facility] Work Phone: Blood monocytes/100 leukocyt eson 03-04-2022 Monocytes/100 WBC (Bld) 7.6 % 0-10 [facility] Work Phone: Blood platelet mean volumeon 03-04-2022 Platelet mean volume (Bld) [Entitic vol] 9.0 fL 6.2-12.[address] [facility] Work Phone: Determination of erythrocyte mean corpuscular volume (MCV)on 03-04-2022 MCV (RBC) [Entitic vol] 94.7 fL 81-99 [facility] Work Phone: Hematocrit Auto (Bld) [Volum e fraction]on 03-04-2022 Hematocrit (Bld) [Volume fraction] 35.6 % 37-[address] [facility] Work Phone: Iron measurement (mass/mass) on 03-04-2022 Iron (Unsp spec) [Mass/Mass] 23 ug/dL 50-[address] [facility] Work Phone: Laboratory - Hematology and Cell countson 03-04-2022 Erythrocyte distribution width (RBC) [Entitic vol] 56.5 fL 35.1-43.9 [facility] Work Phone: Erythrocyte distribution width (RBC) [Ratio] 16.4 % 11.6-14.[address] [facility] Work Phone: Immature granulocytes/100 WBC (Bld) 0.500 % 0.0-0.[address] [facility] Work Phone: Comment on above: IG% - Immature Granu locytes (promyelocytes, myelocytes and metamyelocytes) > 1% indicates that a LEFT SHIFT is Present. MCH (RBC) [Entitic mass] 31.1 pg 27.0-32.[address] [facility] Work Phone: Nucleated RBC/100 WBC (Bld) [Ratio] 0 % 0-[address] [facility] Work Phone: MCHC Auto (RBC) [Mass/Vol]on 03-04-2022 MCHC (RBC) [Mass/Vol] 32.9 g/dL 32-36 [facility] Work Phone: No Panel Informationon 03-04 Total Iron Binding Capacity 407 ug/dL 250-[address] [facility] Work Phone: Platelets bldon 03-04-2022 Platelets (Bld) [#/Vol] 267 10*3/uL 150-[address] [facility] Work Phone: Serum or plasma ferritin bryce surement (mass/volume)on 03-04-2022 Ferritin [Mass/Vol] 6 ng/mL 8-252 [facility] Work Phone: Serum or plasma iron saturat ion measurement (mass fraction)on 03-04-2022 Iron saturation [Mass fraction] 5.7 % 15.0-55.[address] [facility] Work Phone: CNOVon 02-14-2022 CNOV Normal [facility] ANES POSTPROC EVALon 022 ANES POSTPROC EVAL Normal [facility] CASE MANAGEMon 02-04-2022 CASE MANAGEM Normal [facility] CNDSon 02-04-2022 CNDS Normal [facility] CONSULTon 02-03-2022 CONSULT Normal [facility] THERAPY NTon 02-03-2022 THERAPY NT Normal [facility] Basic metabolic 2000 panelon 02-02-2022 Anion gap [Moles/Vol] 9 mmol/L Normal 05-05 [facility] Comment on above: Order Comment: Speci men Type: BLOOD SPECIMENOrdering Facility: [facility] Address: [address] [place] [address] Performed By: #### 1 9123-9, 29428-6, 277- ####[facility] LABORATORYCLIA [id number] [place] [address] [place] Calcium [Mass/Vol] 7.7 mg/dL Low 8.5-10.2 [facility] Comment on above: Order Comment: Speci men Type: BLOOD SPECIMENOrdering Facility: [facility] Address: [address] [place] [address] Performed By: #### 1 9123-9, 16847-1, 277- ####[facility] LABORATORYCLIA [id number] [place] [address] [place] Chloride [Moles/Vol] 111 mmol/L High 97-105 [facility] Comment on above: Order Comment: Speci men Type: BLOOD SPECIMENOrdering Facility: [facility] Address: [address] [place] [address] Performed By: #### 1 9123-9, 31657-2, 277-1 ####[facility]CLIA [id number] [place] [address] [place] CO2 [Moles/Vol] 22 mmol/L Normal 22-30 [facility] Comment on above: Order Comment: Speci men Type: BLOOD SPECIMENOrdering Facility: [facility] Address: [address] [place] [address] Performed By: #### 1 9123-9, 71631-2, 277- ####[facility]CLIA [id number] [address] Creatinine [Mass/Vol] 0.41 mg/dL Low 0.58-0.96 [facility] Comment on above: Order Comment: Speci men Type: BLOOD SPECIMENOrdering Facility: [facility] Address: [address] [place] [address] Performed By: #### 1 9123-9, 02586-2, 2776-08 ####[facility] [id number] [address] ESTIMATED GLOMERULAR FILTRATION RATE 108 mL/min/1.73m??? Normal >=60 [facility] Comment on above: Order Comment: Speci men Type: BLOOD SPECIMENOrdering Facility: [facility] Address: [address] [place] [address] Result Comment: Ameena mated Glomerular Filtration Rate [...] actual GFR. Performed By: #### 1 9123-9, 80319-9, 2776-08 ####[facility]ALTHIA [id number] [place] [id number] [place] Glucose [Mass/Vol] 149 mg/dL High 74-99 [facility] Comment on above: Order Comment: Speci men Type: BLOOD SPECIMENOrdering Facility: [facility] Address: [address] [phone] Result Comment: The [place] [employer] (ADA) provides guidance for cutoff [...] Standards of Medical Care in Diabetes 2016, [place] [employer]. Diabetes Care. 2016.39(Suppl 1). Performed By: #### 1 9123-9, 47180-0, 2776-08 ####[facility] LABORATORYCLIA [id number] [place] [address] [place] Potassium [Moles/Vol] 3.8 mmol/L Normal 3.7-5.1 [facility] Comment on above: Order Comment: Speci men Type: BLOOD SPECIMENOrdering Facility: [facility] Address: [address] [address] Performed By: #### 1 9123-9, , 2776-08 ####[facility] LABORATORYCLIA [id number] [place] [address] [place] Sodium [Moles/Vol] 142 mmol/L Normal 136-144 [facility] Comment on above: Order Comment: Speci men Type: BLOOD SPECIMENOrdering Facility: [facility] Address: [address] Performed By: #### 1 9123-9, 11275-8, 2776-08 ####[facility] LABORATORYCLIA [id number] [place] [address] [place] Urea nitrogen [Mass/Vol] 13 mg/dL Normal 7-21 [facility] Comment on above: Order Comment: Speci men Type: BLOOD SPECIMENOrdering Facility: [facility] Address: [address] [place] [address] Performed By: #### 1 9123-9, 42941-2, 2777-1 ####[facility] LABORATORYCLIA [id number] [address] CBC panel Auto (Bld)on 02-02 Erythrocyte distribution width (RBC) [Ratio] 15.3 % High 11.5-15.0 [facility] Comment on above: Order Comment: Speci men Type: BLOOD SPECIMENOrdering Facility: [facility] Address: [address] [place] [address] Performed By: #### 5 8410-2 ####[facility] LABORATORYCLIA [id number] [address] Hematocrit (Bld) [Volume fraction] 42.2 % Normal 36.0-46.0 [facility] Comment on above: Order Comment: Speci men Type: BLOOD SPECIMENOrdering Facility: [facility] Address: [address] [place] [address] Performed By: #### 5 8410-2 ####[facility] LABORATORYCLIA [id number] [address] Hemoglobin (Bld) [Mass/Vol] 13.0 g/dL Normal 11.5-15.5 [facility] Comment on above: Order Comment: Speci men Type: BLOOD SPECIMENOrdering Facility: [facility] Address: [address] [place] [address] Performed By: #### 5 8410-2 ####[facility] LABORATORYCLIA [id number] [address] MCH (RBC) [Entitic mass] 30.1 pg Normal 26.0-34.0 [facility] Comment on above: Order Comment: Speci men Type: BLOOD SPECIMENOrdering Facility: [facility] Address: [address] [place] [address] Performed By: #### 5 8410-2 ####[facility] LABORATORYCLIA [id number] [address] [place] MCHC (RBC) [Mass/Vol] 30.8 g/dL Normal 30.5-36.0 [facility] Comment on above: Order Comment: Speci men Type: BLOOD SPECIMENOrdering Facility: [facility] Address: [address] [place] [address] Performed By: #### 5 8410-2 ####[facility] LABORATORYCLIA [id number] [address] [place] MCV (RBC) [Entitic vol] 97.7 fL Normal 80.0-100.0 [facility] Comment on above: Order Comment: Speci men Type: BLOOD SPECIMENOrdering Facility: [facility] Address: [address] [place] [address] Performed By: #### 5 8410-2 ####[facility] LABORATORYCLIA [id number] [address] [place] Nucleated RBC (Bld) [#/Vol] 10*3/uL Normal <0.01 [facility] Comment on above: Order Comment: Speci men Type: BLOOD SPECIMENOrdering Facility: [facility] Address: [address] [place] [address] Performed By: #### 5 8410-2 ####[facility] LABORATORYCLIA [id number] [address] [place] Platelet mean volume (Bld) [Entitic vol] 9.4 fL Normal 9.0-12.7 [facility] Comment on above: Order Comment: Speci men Type: BLOOD SPECIMENOrdering Facility: [facility] Address: [address] [place] [address] Performed By: #### 5 8410-2 ####[facility] LABORATORYCLIA [id number] [address] [place] Platelets (Bld) [#/Vol] 248 10*3/uL Normal 150-400 [facility] Comment on above: Order Comment: Speci men Type: BLOOD SPECIMENOrdering Facility: [facility] Address: [address] [place] [address] Performed By: #### 5 8410-2 ####[facility] LABORATORYCLIA [id number] [address] STATES OF [facility] RBC (Bld) [#/Vol] 4.32 10*6/uL Normal 3.90-5.20 [facility] Comment on above: Order Comment: Speci men Type: BLOOD SPECIMENOrdering Facility: [facility] Address: [address] [place] [address] Performed By: #### 5 8410-2 ####[facility] LABORATORYCLIA [id number] [address] WBC (Bld) [#/Vol] 13.80 10*3/uL High 3.70-11.00 [facility] Comment on above: Order Comment: Speci men Type: BLOOD SPECIMENOrdering Facility: [facility] Address: [address] [place] [address] Performed By: #### 5 8410-2 ####[facility] LABORATORYCLIA [id number] [address] Magnesium SerPl-mCncon 02-02 Magnesium [Mass/Vol] 1.7 mg/dL Normal 1.7-2.3 [facility] Comment on above: Order Comment: Speci men Type: BLOOD SPECIMENOrdering Facility: [facility] Address: [address] [place] [address] Performed By: #### 1 9123-9, 74160-2, 2777-1 ####[facility] LABORATORYCLIA [id number] [address] NURSING PROGon 02-02-2022 NURSING PROG Normal [facility] PT panel Coag (PPP)on 2021 INR Coag (PPP) [Relative time] 1.0 {INR} Normal 0.9-1.3 [facility] Comment on above: Order Comment: Speci men Type: BLOOD SPECIMENOrdering Facility: [facility] Address: [address] [place] [address] Result Comment: Sariah min K Antagonist (VKA) Therapeutic Range: INR 2 to 3 (Target INR of 2.5)Note: For patients treated with VKA drugs, such as warfarin, the [place] [employer] 2012 Guideline recommends [...] al. Chest 2012, 141:7S-47SNishgonzalo RA, et al. [facility] 2017, 70: 252-289 Performed By: #### 1 4979-9, 25599-7 ####[facility] LABORATORYCLIA [id number] [place] [address] [place] PT Coag (PPP) [Time] 11.5 s Normal 9.7-13.0 [facility] Comment on above: Order Comment: Speci esther Type: BLOOD SPECIMENOrdering Facility: [facility] Address: [address] [place] [address] Performed By: #### 1 4979-9, 17460-0 ####[facility] LABORATORYCLIA [id number] [place] [address] [place] Phosphate SerPl-mCncon 02-02 Phosphate [Mass/Vol] 2.4 mg/dL Low 2.7-4.8 [facility] Comment on above: Order Comment: Lucreciai men Type: BLOOD SPECIMENOrdering Facility: [facility] Address: [address] [place] [address] Performed By: #### 1 9123-9, 75838-0, 2777-1 ####[facility] LABORATORYCLIA [id number] [place] [address] [place] THERAPY NTon 02-02-2022 THERAPY NT Normal [facility] THERAPY NT Normal [facility] aPTT PPPon 02-02-2022 aPTT Coag (PPP) [Time] 27.8 s Normal 23.0-32.4 [facility] Comment on above: Order Comment: Speci men Type: BLOOD SPECIMENOrdering Facility: [facility] Address: [address] [place] [address] Performed By: #### 1 4979-9, 07868-4 ####[facility] LABORATORYCLIA [id number] [place] [address] [place] ANES PRE-OPon 02-01-2022 ANES PRE-OP Normal [facility] HISTORY PHYSICALon 2 HISTORY PHYSICAL Normal [facility] OPERATIVE NOon 02-01-2022 OPERATIVE NO Normal [facility] STAPH AUREUS PCRon 2 S. aureus and MRSA panel NADEEM+probe (Nose) Normal Negative [facility] Comment on above: Order Comment: Speci men Type: SWAB OF INTERNAL NOSEOrdering Facility: [facility] Address: [address] [place] [address] Result Comment: Nega tive for Staphylococcus aureus by PCR.Negative for MRSA by PCR Performed By: #### S APCR ####[facility] LABORATORYCLIA [id number] [place] [address] [place] Basic metabolic 2000 panelon 01-22-2022 Anion gap [Moles/Vol] 12 mmol/L Normal 9-18 [facility] Comment on above: Order Comment: Speci men Type: BLOOD SPECIMENOrdering Facility: [facility] Address: [address] [place] [address] Performed By: #### 2 4321-2 ####[facility] LABORATORYCLIA [id number] [place] [address] [place] Calcium [Mass/Vol] 9.7 mg/dL Normal 8.5-10.2 [facility] Comment on above: Order Comment: Speci men Type: BLOOD SPECIMENOrdering Facility: [facility] Address: [address] [place] [place] [address] Performed By: #### 2 4321-2 ####[facility] LABORATORYCLIA [id number] [address] [place] Chloride [Moles/Vol] 105 mmol/L Normal 97-105 [facility] Comment on above: Order Comment: Speci men Type: BLOOD SPECIMENOrdering Facility: [facility] Address: [address] [place] [address] Performed By: #### 2 4321-2 ####[facility] LABORATORYCLIA [id number] [address] [place] CO2 [Moles/Vol] 22 mmol/L Normal 22-30 [facility] Comment on above: Order Comment: Speci men Type: BLOOD SPECIMENOrdering Facility: [facility] Address: [address] [place] [address] Performed By: #### 2 4321-2 ####[facility] LABORATORYCLIA [id number] [address] [place] Creatinine [Mass/Vol] 0.47 mg/dL Low 0.58-0.96 [facility] Comment on above: Order Comment: Speci men Type: BLOOD SPECIMENOrdering Facility: [facility] Address: [address] [place] [address] Performed By: #### 2 4321-2 ####[facility] LABORATORYCLIA [id number] [address] ESTIMATED GLOMERULAR FILTRATION RATE 104 mL/min/1.73m??? Normal >=60 [facility] Comment on above: Order Comment: Speci men Type: BLOOD SPECIMENOrdering Facility: [facility] Address: [address] [place] [address] Result Comment: Ameena mated Glomerular Filtration Rate [...] actual GFR. Performed By: #### 2 4321-2 ####[facility] LABORATORYCLIA [id number] [place] [address] [place] Glucose [Mass/Vol] 91 mg/dL Normal 74-99 [facility] Comment on above: Order Comment: Lauren santana Type: BLOOD SPECIMENOrdering Facility: [facility] Address: [address] [phone] Result Comment: The [place] [employer] (ADA) provides guidance for cutoff [...] Standards of Medical Care in Diabetes 2016, [place] [employer]. Diabetes Care. 2016.39(Suppl 1). Performed By: #### 2 4321-2 ####[facility] LABORATORYCLIA [id number] [place] [address] [place] Potassium [Moles/Vol] 4.6 mmol/L Normal 3.7-5.1 [facility] Comment on above: Order Comment: Lauren santana Type: BLOOD SPECIMENOrdering Facility: [facility] Address: [address] [phone] Performed By: #### 2 4321-2 ####[facility] LABORATORYCLIA [id number] [place] [address] [place] Sodium [Moles/Vol] 139 mmol/L Normal 136-144 [facility] Comment on above: Order Comment: Lauren santana Type: BLOOD SPECIMENOrdering Facility: [facility] Address: [address] [address] Performed By: #### 2 4321-2 ####[facility] LABORATORYCLIA [id number] [address] STATES [facility] Urea nitrogen [Mass/Vol] 13 mg/dL Normal 7-21 [facility] Comment on above: Order Comment: Speci men Type: BLOOD SPECIMENOrdering Facility: [facility] Address: [address] [place] [address] Performed By: #### 2 4321-2 ####[facility] LABORATORYCLIA [id number] [address] [place] CBC panel Auto (Bld)on 01-22 Erythrocyte distribution width (RBC) [Ratio] 15.3 % High 11.5-15.0 [facility] Comment on above: Order Comment: Speci men Type: BLOOD SPECIMENOrdering Facility: [facility] Address: [address] [place] [address] Performed By: #### 5 8410-2 ####[facility] LABORATORYCLIA [id number] [address] STATES [facility] Hematocrit (Bld) [Volume fraction] 46.3 % High 36.0-46.0 [facility] Comment on above: Order Comment: Speci men Type: BLOOD SPECIMENOrdering Facility: [facility] Address: [address] [place] [address] Performed By: #### 5 8410-2 ####[facility] LABORATORYCLIA [id number] [address] Hemoglobin (Bld) [Mass/Vol] 14.8 g/dL Normal 11.5-15.5 [facility] Comment on above: Order Comment: Speci men Type: BLOOD SPECIMENOrdering Facility: [facility] Address: [address] [place] [address] Performed By: #### 5 8410-2 ####[facility] LABORATORYCLIA [id number] [address] [place] MCH (RBC) [Entitic mass] 30.3 pg Normal 26.0-34.0 [facility] Comment on above: Order Comment: Speci men Type: BLOOD SPECIMENOrdering Facility: [facility] Address: [address] [place] [address] Performed By: #### 5 8410-2 ####[facility] LABORATORYCLIA [id number] [address] MCHC (RBC) [Mass/Vol] 32.0 g/dL Normal 30.5-36.0 [facility] Comment on above: Order Comment: Speci men Type: BLOOD SPECIMENOrdering Facility: [facility] Address: [address] [place] [address] Performed By: #### 5 8410-2 ####[facility] LABORATORYCLIA [id number] [address] [place] MCV (RBC) [Entitic vol] 94.7 fL Normal 80.0-100.0 [facility] Comment on above: Order Comment: Speci men Type: BLOOD SPECIMENOrdering Facility: [facility] Address: [address] [place] [address] Performed By: #### 5 8410-2 ####[facility] LABORATORYCLIA [id number] [address] Nucleated RBC (Bld) [#/Vol] 10*3/uL Normal <0.01 [facility] Comment on above: Order Comment: Speci men Type: BLOOD SPECIMENOrdering Facility: [facility] Address: [address] [place] [address] Performed By: #### 5 8410-2 ####[facility] LABORATORYCLIA [id number] [address] Platelet mean volume (Bld) [Entitic vol] 9.6 fL Normal 9.0-12.7 [facility] Comment on above: Order Comment: Speci men Type: BLOOD SPECIMENOrdering Facility: [facility] Address: [address] [place] [address] Performed By: #### 5 8410-2 ####[facility] LABORATORYCLIA [id number] [address] Platelets (Bld) [#/Vol] 295 10*3/uL Normal 150-400 [facility] Comment on above: Order Comment: Speci men Type: BLOOD SPECIMENOrdering Facility: [facility] Address: [address] [place] [address] Performed By: #### 5 8410-2 ####[facility] LABORATORYCLIA [id number] [address] OF [facility] RBC (Bld) [#/Vol] 4.89 10*6/uL Normal 3.90-5.20 [facility] Comment on above: Order Comment: Speci men Type: BLOOD SPECIMENOrdering Facility: [facility] Address: [address] [place] [address] Performed By: #### 5 8410-2 ####[facility] LABORATORYCLIA [id number] [address] WBC (Bld) [#/Vol] 8.53 10*3/uL Normal 3.70-11.00 [facility] Comment on above: Order Comment: Speci men Type: BLOOD SPECIMENOrdering Facility: [facility] Address: [address] [place] [address] Performed By: #### 5 8410-2 ####[facility] LABORATORYCLIA [id number] [address] HISTORY PHYSICALon HISTORY PHYSICAL Normal [facility] PT panel Coag (PPP)on 2021 INR Coag (PPP) [Relative time] 1.0 {INR} Normal 0.9-1.3 [facility] Comment on above: Order Comment: Speci men Type: BLOOD SPECIMENOrdering Facility: [facility] Address: [address] [place] [address] Result Comment: Sariah min K Antagonist (VKA) Therapeutic Range: INR 2 to 3 (Target INR of 2.5)Note: For patients treated with VKA drugs, such as warfarin, the [place] [employer] 2012 Guideline recommends [...] al. Chest 2012, 141:7S-47SNishimura RA, et al. [facility] 2017, 70: 252-289 Performed By: #### 1 4979-9, 75590-5 ####[facility] LABCLIA [id number] [place] [address] [place] [facility] PT Coag (PPP) [Time] 10.0 s Normal 9.7-13.0 [facility] Comment on above: Order Comment: Speci men Type: BLOOD SPECIMENOrdering Facility: [facility] Address: [address] [place] [address] Performed By: #### 1 4979-9, 19482-1 ####[facility] LABCLIA [id number] [place] [address] [place] [facility] aPTT PPPon 01-22-2022 aPTT Coag (PPP) [Time] 28.9 s Normal 23.0-32.4 [facility] Comment on above: Order Comment: Speci men Type: BLOOD SPECIMENOrdering Facility: [facility] Address: [address] [place] [address] Performed By: #### 1 4979-9, 65932-0 ####[facility] LABCLIA [id number] [place] [address] [place] CNCOon 01-17-2022 CNCO Letter Text Normal [facility] CNOVon 01-15-2022 CNOV Normal [facility] CT BRAIN WO IVCONon 01-16-[address] BRAIN WO IVCON Normal [facility] Absolute lymphocyte counton 01-07-2022 Lymphocytes Auto (Unsp spec) [#/Vol] 1.75 10*3/uL 0.83-4.[address] [facility] Work Phone: Basophil percentageon 2021 Basophils/100 WBC (Bld) 0.3 % 0-1 [facility] Work Phone: Bilirubin [Mass/Vol] 0.30 mg/dL 0.20-1.00 [facility] Work Phone: Comment on above: For patients on eltr ombopag therapy, use of Dimension Bryant TBIL is not recommended. Chloride [Moles/Vol] 109 mmol/L 98-107 [facility] Work Phone: [phone] Cholesterol [Mass/Vol] 175 mg/dL <200 [facility] Work Phone: Comment on above: <200 mg/dL Desirable 200-240 mg/dL Borderline >240 mg/dL High Risk Eosinophils/100 WBC (Bld) 1.1 % 0-[address] [facility] Work Phone: Glucose [Mass/Vol] 89 mg/dL 74-106 [facility] Work Phone: [phone] Neutrophils (Bld) [#/Vol] 5.4 10*3/uL 2.0-7.[address] [facility] Work Phone: Neutrophils/100 WBC (Bld) 68.0 % 47-[address] [facility] Work Phone: Potassium [Moles/Vol] 4.6 mmol/L 3.5-5.1 [facility]: Protein [Mass/Vol] 7.7 g/dL 6.4-8.2 [facility] Work Phone: Sodium [Moles/Vol] 140 mmol/L 136-145 [facility] Work Phone: Triglyceride [Mass/Vol] 136 mg/dL <199 [facility] Work Phone: Comment on above: The drugs N-Acetylcy steine and Metamizole may falsely depress this assay.Serum Triglycerides Reference Interval Normal <150 mg/dL Borderline high 150 - 199 mg/dL High 200 - 499 mg/dL Very High > or = 500 mg/dL WBC (Bld) [#/Vol] 7.9 10*3/uL 4.4-11.0 [facility] Work Phone: Blood erythrocytes count (nu mber/volume)on 01-07-2022 RBC (Bld) [#/Vol] 4.69 10*6/uL 4.2-5.4 [facility] Work Phone: Blood hemoglobin measurement (mass/volume)on 01-07-2022 Hemoglobin (Bld) [Mass/Vol] 14.3 g/dL 12.0-15.[address] [facility] Work Phone: Blood lymphocytes/100 leukoc yteson 01-07-2022 Lymphocytes/100 WBC (Bld) 22.1 % 19-[address] [facility] Work Phone: Blood monocytes/100 leukocyt eson 01-07-2022 Monocytes/100 WBC (Bld) 8.1 % 0-10 [facility] Work Phone: Blood platelet mean volumeon 01-07-2022 Platelet mean volume (Bld) [Entitic vol] 9.5 fL 6.2-12.[address] [facility] Work Phone: Determination of erythrocyte mean corpuscular volume (MCV)on 01-07-2022 MCV (RBC) [Entitic vol] 98.9 fL 81-99 [facility] Work Phone: Hematocrit Auto (Bld) [Volum e fraction]on 01-07-2022 Hematocrit (Bld) [Volume fraction] 46.4 % 37-[address] [facility] Work Phone: Iron measurement (mass/mass) on 01-07-2022 Iron (Unsp spec) [Mass/Mass] 55 ug/dL 50-[address] [facility] Work Phone: Laboratory - Chemistry and C hemistry - challengeon 01-07-2022 ALP [Catalytic activity/Vol] 74 U/L 45-[address] [facility] Work Phone: ALT [Catalytic activity/Vol] 18 U/L 13-[address] [facility] Work Phone: CO2 [Moles/Vol] 24.0 mmol/L 21.0-32.[address] [facility] Work Phone: Globulin (S) [Mass/Vol] 4.0 g/dL 2.2-4.2 [facility] Work Phone: Urea nitrogen/Creatinine [Mass ratio] 27.1 mg/mg 10-[address] [facility] Work Phone: Laboratory - Hematology and Cell countson 01-07-2022 Erythrocyte distribution width (RBC) [Entitic vol] 57.2 fL 35.1-43.9 [facility] Work Phone: Erythrocyte distribution width (RBC) [Ratio] 15.6 % 11.6-14.[address] [facility] Work Phone: Immature granulocytes/100 WBC (Bld) 0.400 % 0.0-0.[address] [facility] Work Phone: Comment on above: IG% - Immature Granu locytes (promyelocytes, myelocytes and metamyelocytes) > 1% indicates that a LEFT SHIFT is Present. MCH (RBC) [Entitic mass] 30.5 pg 27.0-32.[address] [facility] Work Phone: Nucleated RBC/100 WBC (Bld) [Ratio] 0 % 0-[address] [facility] Work Phone: MCHC Auto (RBC) [Mass/Vol]on 01-07-2022 MCHC (RBC) [Mass/Vol] 30.8 g/dL 32-36 [facility] Work Phone: No Panel Informationon 01-07 Estimated GFR (MDRD) Amer 141 mL/min >[address] [facility] Work Phone: Comment on above: GFR Calc Estimated GFR (MDRD) Non-Af Amer 116 mL/min >[address] [facility] Work Phone: Comment on above: Non- GFR Calc Total Iron Binding Capacity 396 ug/dL 250-[address] [facility] Work Phone: Urine Microalbumin/Creatinine Ratio 46.0 mg/g CRE <[address] [facility] Work Phone: Platelets bldon 01-07-2022 Platelets (Bld) [#/Vol] 344 10*3/uL 150-[address] [facility] Work Phone: Serum or plasma albumin joaquin urement (mass/volume)on 01-07-2022 Albumin [Mass/Vol] 3.7 g/dL 3.2-5.0 [facility] Work Phone: Serum or plasma albumin/glob ulin mass ratioon 01-07-2022 Albumin/Globulin [Mass ratio] 0.9 {ratio} 0.9-2.[address] [facility] Work Phone: Serum or plasma calcium joaquin urement (mass/volume)on 01-07-2022 Calcium [Mass/Vol] 9.5 mg/dL 8.5-10.1 [facility] Work Phone: Serum or plasma cholesterol in HDL measurement (mass/volume)on 01-07-2022 Cholesterol in HDL [Mass/Vol] 50 mg/dL >[address] [facility] Work Phone: Comment on above: The drugs N-Acetylcy steine and Metamizole may falsely depress this assay. Reference Range HDL <40 mg/dL Low HDL Cholesterol HDL >or= 60 mg/dL High HDL Cholesterol Serum or plasma cholesterol in VLDL measurement (mass/volume)on 01-07-2022 Cholesterol in VLDL [Mass/Vol] 27 mg/dL 5-[address] [facility] Work Phone: Serum or plasma creatinine m easurement (mass/volume)on 01-07-2022 Creatinine [Mass/Vol] 0.55 mg/dL 0.55-1.02 [facility] Work Phone: Comment on above: The validity of the calculated GFR & GFRAA in patients over 70 years has not been determined. Clinical correlation is essential. Serum or plasma ferritin bryce surement (mass/volume)on 01-07-2022 Ferritin [Mass/Vol] 28 ng/mL 8-252 [facility] Work Phone: Serum or plasma low density lipoprotein (LDL) cholesterol measurement (mass/volume)on 01-07-2022 Cholesterol in LDL [Mass/Vol] 98 mg/dL 0-[address] [facility] Work Phone: Serum or plasma urea nitroge n measurement (mass/volume)on 01-07-2022 Urea nitrogen [Mass/Vol] 15 mg/dL 7-[address] [facility] Work Phone: Thin prep Papanicolaou smear with manual screeningon 01-07-2022 Thin prep Papanicolaou smear with manual screening 9 U/L 15-37 [facility] Work Phone: Thin prep Papanicolaou smear with manual screening 7 5-[address] [facility] Work Phone: Thin prep Papanicolaou smear with manual screening 9.1 mg/L NO RANGE EST. [facility] Work Phone: Urine creatinine measurement (mass/volume)on 01-07-2022 Creatinine (U) [Mass/Vol] 19.80 mg/dL NO RANGE EST. [facility] Work Phone: Whole blood hemoglobin A1c/t otal hemoglobin ratio (mass fraction)on 01-07-2022 HbA1c (Bld) [Mass fraction] 5.4 % 3.8-5.[address] [facility] Work Phone: Comment on above: Normal < 5.7 % Predi abetic 5.7 - 6.4 % Diabetic >or= 6.5 % Please note range changes. CNOVon 12-18-2021 CNOV Normal [facility] CT BRAIN WO IVCONon 12-19-19 CT BRAIN WO IVCON Normal [facility] Absolute lymphocyte counton 12-06-2021 Lymphocytes Auto (Unsp spec) [#/Vol] 1.42 10*3/uL 0.83-4.[address] [facility] Work Phone: Basophil percentageon 2021 Basophil percentage 0 SEEN /hpf 0-5 [facility] Work Phone: Basophils/100 WBC (Bld) 0.4 % 0-1 [facility] Work Phone: Bilirubin [Mass/Vol] 0.30 mg/dL 0.20-1.00 [facility] Work Phone: Comment on above: For patients on eltr ombopag therapy, use of Dimension Bryant TBIL is not recommended. Chloride [Moles/Vol] 105 mmol/L 98-107 [facility] Work Phone: [phone] Cholesterol [Mass/Vol] 166 mg/dL <200 [facility] Work Phone: Comment on above: <200 mg/dL Desirable 200-240 mg/dL Borderline >240 mg/dL High Risk Eosinophils/100 WBC (Bld) 0.8 % 0-[address] [facility] Work Phone: [phone] Glucose [Mass/Vol] 118 mg/dL 74-106 [facility] Work Phone: Comment on above: Fasting Glucose resu lt from 100 to 125 mg/dL suggests IMPAIRED HOMEOSTASIS per A.D.A. criteria. Neutrophils (Bld) [#/Vol] 5.0 10*3/uL 2.0-7.[address] [facility] Work Phone: Neutrophils/100 WBC (Bld) 69.3 % 47-[address] [facility] Work Phone: Potassium [Moles/Vol] 4.5 mmol/L 3.5-5.1 [facility] Work Phone: Protein [Mass/Vol] 7.3 g/dL 6.4-8.2 [facility] Work Phone: Sodium [Moles/Vol] 138 mmol/L 136-145 [facility] Work Phone: Triglyceride [Mass/Vol] 177 mg/dL <199 [facility] Work Phone: Comment on above: The drugs N-Acetylcy steine and Metamizole may falsely depress this assay.Serum Triglycerides Reference Interval Normal <150 mg/dL Borderline high 150 - 199 mg/dL High 200 - 499 mg/dL Very High > or = 500 mg/dL WBC (Bld) [#/Vol] 7.3 10*3/uL 4.4-11.0 [facility] Work Phone: Bilirubin Test strip Ql (U)o n 12-06-2021 Bilirubin Ql (U) Negative Negative [facility] Work Phone: Blood erythrocytes count (nu mber/volume)on 12-06-2021 RBC (Bld) [#/Vol] 4.03 10*6/uL 4.2-5.4 [facility] Work Phone: Blood hemoglobin measurement (mass/volume)on 12-06-2021 Hemoglobin (Bld) [Mass/Vol] 12.1 g/dL 12.0-15.[address] [facility] Work Phone: Blood lymphocytes/100 leukoc yteson 12-06-2021 Lymphocytes/100 WBC (Bld) 19.6 % 19-[address] [facility] Work Phone: Blood monocytes/100 leukocyt eson 12-06-2021 Monocytes/100 WBC (Bld) 9.6 % 0-10 [facility] Work Phone: Blood platelet mean volumeon 12-06-2021 Platelet mean volume (Bld) [Entitic vol] 9.0 fL 6.2-12.[address] [facility] Work Phone: Determination of erythrocyte mean corpuscular volume (MCV)on 12-06-2021 MCV (RBC) [Entitic vol] 97.8 fL 81-99 [facility] Work Phone: Hematocrit Auto (Bld) [Volum e fraction]on 12-06-2021 Hematocrit (Bld) [Volume fraction] 39.4 % 37-[address] [facility] Work Phone: Ketones Test strip Ql (U)on 12-06-2021 Ketones Ql (U) Negative Negative [facility] Work Phone: Laboratory - Chemistry and C hemistry - challengeon 12-06-2021 ALP [Catalytic activity/Vol] 69 U/L 45-[address] [facility] Work Phone: ALT [Catalytic activity/Vol] 17 U/L 13-[address] [facility] Work Phone: CO2 [Moles/Vol] 25.0 mmol/L 21.0-32.[address] [facility] Work Phone: Globulin (S) [Mass/Vol] 3.7 g/dL 2.2-4.2 [facility] Work Phone: Urea nitrogen/Creatinine [Mass ratio] 25.3 mg/mg 10-[address] [facility] Work Phone: Laboratory - Hematology and Cell countson 12-06-2021 Erythrocyte distribution width (RBC) [Entitic vol] 59.3 fL 35.1-43.9 [facility] Work Phone: Erythrocyte distribution width (RBC) [Ratio] 16.4 % 11.6-14.[address] [facility] Work Phone: Immature granulocytes/100 WBC (Bld) 0.300 % 0.0-0.[address] [facility] Work Phone: Comment on above: IG% - Immature Granu locytes (promyelocytes, myelocytes and metamyelocytes) > 1% indicates that a LEFT SHIFT is Present. MCH (RBC) [Entitic mass] 30.0 pg 27.0-32.[address] [facility] Work Phone: Nucleated RBC/100 WBC (Bld) [Ratio] 0 % 0-[address] [facility] Work Phone: MCHC Auto (RBC) [Mass/Vol]on 12-06-2021 MCHC (RBC) [Mass/Vol] 30.7 g/dL 32-36 [facility] Work Phone: Mucus LM Ql (Urine sed)on Mucus Ql (Urine sed) 0 SEEN /hpf [facility] Work Phone: Nitrite Test strip Ql (U)on 12-06-2021 Nitrite Ql (U) Negative Negative [facility] Work Phone: No Panel Informationon 12-06 Estimated GFR (MDRD) Amer 141 mL/min >[address] [facility] Work Phone: Comment on above: GFR Calc Estimated GFR (MDRD) Non-Af Amer 117 mL/min >[address] [facility] Work Phone: Comment on above: Non- GFR Calc Platelets bldon 12-06-2021 Platelets (Bld) [#/Vol] 406 10*3/uL 150-[address] [facility] Work Phone: Protein Test strip Ql (U)on 12-06-2021 Protein Ql (U) Negative Negative [facility] Work Phone: Serum or plasma albumin joaquin urement (mass/volume)on 12-06-2021 Albumin [Mass/Vol] 3.6 g/dL 3.2-5.0 [facility] Work Phone: Serum or plasma albumin/glob ulin mass ratioon 12-06-2021 Albumin/Globulin [Mass ratio] 1.0 {ratio} 0.9-2.[address] [facility] Work Phone: Serum or plasma calcium joaquin urement (mass/volume)on 12-06-2021 Calcium [Mass/Vol] 9.3 mg/dL 8.5-10.1 [facility] Work Phone: Serum or plasma cholesterol in HDL measurement (mass/volume)on 12-06-2021 Cholesterol in HDL [Mass/Vol] 49 mg/dL >[address] [facility] Work Phone: Comment on above: The drugs N-Acetylcy steine and Metamizole may falsely depress this assay. Reference Range HDL <40 mg/dL Low HDL Cholesterol HDL >or= 60 mg/dL High HDL Cholesterol Serum or plasma cholesterol in VLDL measurement (mass/volume)on 12-06-2021 Cholesterol in VLDL [Mass/Vol] 35 mg/dL 5-[address] [facility] Work Phone: Serum or plasma creatinine m easurement (mass/volume)on 12-06-2021 Creatinine [Mass/Vol] 0.55 mg/dL 0.55-1.02 [facility] Work Phone: Comment on above: The validity of the calculated GFR & GFRAA in patients over 70 years has not been determined. Clinical correlation is essential. Serum or plasma low density lipoprotein (LDL) cholesterol measurement (mass/volume)on 12-06-2021 Cholesterol in LDL [Mass/Vol] 82 mg/dL 0-[address] [facility] Work Phone: Serum or plasma urea nitroge n measurement (mass/volume)on 12-06-2021 Urea nitrogen [Mass/Vol] 14 mg/dL 7-[address] [facility] Work Phone: Squamous epithelial cells de tection in urine sediment by light microscopyon 12-06-2021 Epithelial cells.squamous LM Ql (Urine sed) 0 SEEN /hpf 5-[address] [facility] Work Phone: Thin prep Papanicolaou smear with manual screeningon 12-06-2021 Thin prep Papanicolaou smear with manual screening 8 U/L 15-[address] [facility] Work Phone: Thin prep Papanicolaou smear with manual screening 8 5-[address] [facility] Work Phone: Urine blood detectionon 04- RBC Ql (U) Negative Negative [facility] Work Phone: RBC Ql (U) 0 SEEN /hpf 0-[address] [facility] Work Phone: Urine clarityon 12-06-2021 Clarity (U) Clear Clear [facility] Work Phone: Urine color determinationon 12-06-2021 Color (U) Yellow Yellow [facility] Work Phone: Urine glucose detectionon Glucose Ql (U) Normal mg/dl Normal [facility] Work Phone: Urine leukocyte esterase det ection by dipstickon 12-06-2021 Leukocyte esterase Test strip Ql (U) Negative Negative [facility] Work Phone: Urine pHon 12-06-2021 pH (U) 7.0 [pH] 5.0 - 8.[address] [facility] Work Phone: Urine sediment bacteria coun t by microscopy (number/high power field)on 12-06-2021 Bacteria LM.HPF (Urine sed) [#/Area] 0 /[HPF] None Seen [facility] Work Phone: Urine specific gravity measu rementon 12-06-2021 Specific gravity (U) [Rel density] 1.030 1.002-1.[address] [facility] Work Phone: Urobilinogen Auto test strip Ql (U)on 12-06-2021 Urobilinogen Ql (U) Normal mg/dl Normal [facility] Work Phone: Whole blood hemoglobin A1c/t otal hemoglobin ratio (mass fraction)on 12-06-2021 HbA1c (Bld) [Mass fraction] 5.6 % 3.8-5.[address] [facility] Work Phone: Comment on above: Normal < 5.7 % Predi abetic 5.7 - 6.4 % Diabetic >or= 6.5 % Please note range changes. Absolute lymphocyte counton 12-05-2021 Lymphocytes Auto (Unsp spec) [#/Vol] 1.55 10*3/uL 0.83-4.[address] [facility] Work Phone: Basophil percentageon 2021 Basophils/100 WBC (Bld) 0.1 % 0-1 [facility] Work Phone: Eosinophils/100 WBC (Bld) 0.9 % 0-[address] [facility] Work Phone: Neutrophils (Bld) [#/Vol] 5.4 10*3/uL 2.0-7.[address] [facility] Work Phone: Neutrophils/100 WBC (Bld) 70.6 % 47-[address] [facility] Work Phone: WBC (Bld) [#/Vol] 7.7 10*3/uL 4.4-11.0 [facility] Blood erythrocytes count (nu mber/volume)on 12-05-2021 RBC (Bld) [#/Vol] 4.07 10*6/uL 4.2-5.4 [facility] Work Phone: Blood hemoglobin measurement (mass/volume)on 12-05-2021 Hemoglobin (Bld) [Mass/Vol] 12.5 g/dL 12.0-15.[address] [facility] Work Phone: Blood lymphocytes/100 leukoc yteson 12-05-2021 Lymphocytes/100 WBC (Bld) 20.1 % 19-[address] [facility] Work Phone: Blood monocytes/100 leukocyt eson 12-05-2021 Monocytes/100 WBC (Bld) 7.8 % 0-10 [facility] Work Phone: Blood platelet mean volumeon 12-05-2021 Platelet mean volume (Bld) [Entitic vol] 8.6 fL 6.2-12.[address] [facility] Work Phone: Determination of erythrocyte mean corpuscular volume (MCV)on 12-05-2021 MCV (RBC) [Entitic vol] 98.5 fL 81-99 [facility] Work Phone: Hematocrit Auto (Bld) [Volum e fraction]on 12-05-2021 Hematocrit (Bld) [Volume fraction] 40.1 % 37-[address] [facility] Work Phone: Iron measurement (mass/mass) on 12-05-2021 Iron (Unsp spec) [Mass/Mass] 36 ug/dL 50-[address] [facility] Work Phone: Laboratory - Chemistry and C hemistry - challengeon 12-05-2021 Cobalamin (Vitamin B12) [Mass/Vol] 268 pg/mL 211-[address] [facility] Laboratory - Hematology and Cell countson 12-05-2021 Erythrocyte distribution width (RBC) [Entitic vol] 59.8 fL 35.1-43.9 [facility] Work Phone: Erythrocyte distribution width (RBC) [Ratio] 16.4 % 11.6-14.[address] [facility] Work Phone: [phone] Immature granulocytes/100 WBC (Bld) 0.500 % 0.0-0.[address] [facility] Work Phone: Comment on above: IG% - Immature Granu locytes (promyelocytes, myelocytes and metamyelocytes) > 1% indicates that a LEFT SHIFT is Present. MCH (RBC) [Entitic mass] 30.7 pg 27.0-32.[address] [facility] Work Phone: Nucleated RBC/100 WBC (Bld) [Ratio] 0 % 0-[address] [facility] Work Phone: MCHC Auto (RBC) [Mass/Vol]on 12-05-2021 MCHC (RBC) [Mass/Vol] 31.2 g/dL 32-36 [facility] Work Phone: No Panel Informationon 12-05 Total Iron Binding Capacity 374 ug/dL 250-[address] [facility] Work Phone: [phone] Platelets bldon 12-05-2021 Platelets (Bld) [#/Vol] 394 10*3/uL 150-[address] [facility] Work Phone: [phone] Serum or plasma ferritin bryce surement (mass/volume)on 12-05-2021 Ferritin [Mass/Vol] 24 ng/mL 8-252 [facility] Work Phone: Serum or plasma iron saturat ion measurement (mass fraction)on 12-05-2021 Iron saturation [Mass fraction] 9.6 % 15.0-55.[address] [facility] Work Phone: CNOVon 11-20-2021 CNOV Normal [facility] CT BRAIN WO IVCONon 11-21-[address] BRAIN WO IVCON Normal [facility] CASE MANAGEMon 11-14-2021 CASE MANAGEM Normal [facility] CASE MANAGEM Normal [facility] CNDSon 11-14-2021 CNDS Normal [facility] THERAPY NTon 11-14-2021 THERAPY NT Normal [facility] CASE MANAGEMon 11-13-2021 CASE MANAGEM Normal [facility] CASE MANAGEM Normal [facility] NUTRITIONon 11-13-2021 NUTRITION Normal [facility] THERAPY NTon 11-13-2021 THERAPY NT Normal [facility] THERAPY NT Normal [facility] Basic metabolic 2000 panelon 11-12-2021 Anion gap [Moles/Vol] 8 mmol/L Low 9-18 [facility] Comment on above: Order Comment: Speci men Type: BLOOD SPECIMENOrdering Facility: [facility] Address: [address] [place] [address] Performed By: #### 2 4321-2 ####[facility]ATORYCLIA [id number] [place] [address] [place] Calcium [Mass/Vol] 8.8 mg/dL Normal 8.5-10.2 [facility] Comment on above: Order Comment: Speci men Type: BLOOD SPECIMENOrdering Facility: [facility] Address: [address] [place] [address] Performed By: #### 2 4321-2 ####[facility]ORYCLIA [id number] [place] [address] [place] Chloride [Moles/Vol] 106 mmol/L High 97-105 [facility] Comment on above: Order Comment: Speci men Type: BLOOD SPECIMENOrdering Facility: [facility] Address: [address] [place] [address] Performed By: #### 2 4321-2 ####[facility]ORATORYCLIA [id number] [place] [address] [place] CO2 [Moles/Vol] 25 mmol/L Normal 22-30 [facility] Comment on above: Order Comment: Lauren santana Type: BLOOD SPECIMENOrdering Facility: [facility] Address: [address] [address] Performed By: #### 2 4321-2 ####[facility]CLIA [id number] [address] OF [facility] Creatinine [Mass/Vol] 0.31 mg/dL Low 0.58-0.96 [facility] Comment on above: Order Comment: Speckatie santana Type: BLOOD SPECIMENOrdering Facility: [facility] Address: [address] [place] [address] Performed By: #### 2 4321-2 ####[facility] [id number] [address] ESTIMATED GLOMERULAR FILTRATION RATE 116 mL/min/1.73m??? Normal >=60 [facility] Comment on above: Order Comment: Lauren santana Type: BLOOD SPECIMENOrdering Facility: [facility] Address: [address] [place] [address] Result Comment: Ameena mated Glomerular Filtration Rate [...] actual GFR. Performed By: #### 2 4321-2 ####[facility] LABORATORYCLIA [id number] [address] Glucose [Mass/Vol] 127 mg/dL High 74-99 [facility] Comment on above: Order Comment: Lauren santana Type: BLOOD SPECIMENOrdering Facility: [facility] Address: [address] [place] [address] Result Comment: The [place] [employer] (ADA) provides guidance for cutoff [...] Standards of Medical Care in Diabetes 2016, [place] [employer]. Diabetes Care. 2016.39(Suppl 1). Performed By: #### 2 4321-2 ####[facility] LABORATORYCLIA [id number] [address] STATES OF [facility] Potassium [Moles/Vol] 4.0 mmol/L Normal 3.7-5.1 [facility] Comment on above: Order Comment: Speci men Type: BLOOD SPECIMENOrdering Facility: [facility] Address: [address] [place] [address] Performed By: #### 2 4321-2 ####[facility] LABORATORYCLIA [id number] [address] STATES [facility] Sodium [Moles/Vol] 139 mmol/L Normal 136-144 [facility] Comment on above: Order Comment: Speci men Type: BLOOD SPECIMENOrdering Facility: [facility] Address: [address] [place] [address] Performed By: #### 2 4321-2 ####[facility] LABORATORYCLIA [id number] [address] STATES [facility] Urea nitrogen [Mass/Vol] 12 mg/dL Normal 7-21 [facility] Comment on above: Order Comment: Speci men Type: BLOOD SPECIMENOrdering Facility: [facility] Address: [address] [place] [address] Performed By: #### 2 4321-2 ####[facility] LABORATORYCLIA [id number] [address] OF [place] CASE MANAGEMon 11-12-2021 CASE MANAGEM Normal [facility] CBC panel Auto (Bld)on 11-12 Erythrocyte distribution width (RBC) [Ratio] 16.9 % High 11.5-15.0 [facility] Comment on above: Order Comment: Speci men Type: BLOOD SPECIMENOrdering Facility: [facility] Address: [address] [place] [address] Performed By: #### 5 8410-2 ####[facility] LABORATORYCLIA [id number] [address] OF [facility] Hematocrit (Bld) [Volume fraction] 38.8 % Normal 36.0-46.0 [facility] Comment on above: Order Comment: Speci men Type: BLOOD SPECIMENOrdering Facility: [facility] Address: [address] [place] [address] Performed By: #### 5 8410-2 ####[facility] LABORATORYCLIA [id number] [address] OF [facility] Hemoglobin (Bld) [Mass/Vol] 11.9 g/dL Normal 11.5-15.5 [facility] Comment on above: Order Comment: Speci men Type: BLOOD SPECIMENOrdering Facility: [facility] Address: [address] [place] [address] Performed By: #### 5 8410-2 ####[facility] LABORATORYCLIA [id number] [address] STATES OF [facility] MCH (RBC) [Entitic mass] 30.7 pg Normal 26.0-34.0 [facility] Comment on above: Order Comment: Speci men Type: BLOOD SPECIMENOrdering Facility: [facility] Address: [address] [place] [address] Performed By: #### 5 8410-2 ####[facility] LABORATORYCLIA [id number] [address] [place] MCHC (RBC) [Mass/Vol] 30.7 g/dL Normal 30.5-36.0 [facility] Comment on above: Order Comment: Speci men Type: BLOOD SPECIMENOrdering Facility: [facility] Address: [address] [place] [address] Performed By: #### 5 8410-2 ####[facility] LABORATORYCLIA [id number] [address] [place] MCV (RBC) [Entitic vol] 100.3 fL High 80.0-100.0 [facility] Comment on above: Order Comment: Speci men Type: BLOOD SPECIMENOrdering Facility: [facility] Address: [address] [place] [address] Performed By: #### 5 8410-2 ####[facility] LABORATORYCLIA [id number] [address] Nucleated RBC (Bld) [#/Vol] 10*3/uL Normal <0.01 [facility] Comment on above: Order Comment: Speci men Type: BLOOD SPECIMENOrdering Facility: [facility] Address: [address] [place] [address] Performed By: #### 5 8410-2 ####[facility] LABORATORYCLIA [id number] [address] Platelet mean volume (Bld) [Entitic vol] 9.0 fL Normal 9.0-12.7 [facility] Comment on above: Order Comment: Speci men Type: BLOOD SPECIMENOrdering Facility: [facility] Address: [address] [place] [address] Performed By: #### 5 8410-2 ####[facility] LABORATORYCLIA [id number] [address] Platelets (Bld) [#/Vol] 480 10*3/uL High 150-400 [facility] Comment on above: Order Comment: Speci men Type: BLOOD SPECIMENOrdering Facility: [facility] Address: [address] [place] [address] Performed By: #### 5 8410-2 ####[facility] LABORATORYCLIA [id number] [address] [place] RBC (Bld) [#/Vol] 3.87 10*6/uL Low 3.90-5.20 [facility] Comment on above: Order Comment: Speci men Type: BLOOD SPECIMENOrdering Facility: [facility] Address: [address] [place] [address] Performed By: #### 5 8410-2 ####[facility] LABORATORYCLIA [id number] [place] [address] [place] WBC (Bld) [#/Vol] 7.61 10*3/uL Normal 3.70-11.00 [facility] Comment on above: Order Comment: Speci men Type: BLOOD SPECIMENOrdering Facility: [facility] Address: [address] [place] [address] Performed By: #### 5 8410-2 ####[facility] LABORATORYCLIA [id number] [address] [place] CONSULTon 11-12-2021 CONSULT Normal [facility] THERAPY NTon 11-12-2021 THERAPY NT Normal [facility] THERAPY NT Normal [facility] Basic metabolic 2000 panelon 11-11-2021 Anion gap [Moles/Vol] 9 mmol/L Normal 9-18 [facility] Comment on above: Order Comment: Speci men Type: BLOOD SPECIMENOrdering Facility: [facility] Address: [address] [place] [address] Performed By: #### 2 4321-2 ####[facility] LABORATORYCLIA [id number] [place] [address] [place] Calcium [Mass/Vol] 9.0 mg/dL Normal 8.5-10.2 [facility] Comment on above: Order Comment: Speci men Type: BLOOD SPECIMENOrdering Facility: [facility] Address: [address] [place] [address] Performed By: #### 2 4321-2 ####[facility] LABORATORYCLIA [id number] [place] [address] [place] Chloride [Moles/Vol] 107 mmol/L High 97-105 [facility] Comment on above: Order Comment: Speci men Type: BLOOD SPECIMENOrdering Facility: [facility] Address: [address] [address] Performed By: #### 2 4321-2 ####[facility] LABORATORYCLIA [id number] [address] STATES OF [facility] CO2 [Moles/Vol] 25 mmol/L Normal 22-30 [facility] Comment on above: Order Comment: Speci men Type: BLOOD SPECIMENOrdering Facility: [facility] Address: [address] [place] [address] Performed By: #### 2 4321-2 ####[facility] LABORATORYCLIA [id number] [address] [place] Creatinine [Mass/Vol] 0.31 mg/dL Low 0.58-0.96 [facility] Comment on above: Order Comment: Speci men Type: BLOOD SPECIMENOrdering Facility: [facility] Address: [address] [place] [address] Performed By: #### 2 4321-2 ####[facility] [id number] [address] ESTIMATED GLOMERULAR FILTRATION RATE 116 mL/min/1.73m??? Normal >=60 [facility] Comment on above: Order Comment: Speci men Type: BLOOD SPECIMENOrdering Facility: [facility] Address: [address] [place] [address] Result Comment: Ameena mated Glomerular Filtration Rate [...] actual GFR. Performed By: #### 2 4321-2 ####[facility] LABORATORYCLIA [id number] [address] OF [facility] Glucose [Mass/Vol] 116 mg/dL High 74-99 [facility] Comment on above: Order Comment: Speci men Type: BLOOD SPECIMENOrdering Facility: [facility] Address: [address] [address] Result Comment: The [place] [employer] (ADA) provides guidance for cutoff [...] Standards of Medical Care in Diabetes 2016, [place] [employer]. Diabetes Care. 2016.39(Suppl 1). Performed By: #### 2 4321-2 ####[facility] LABORATORYCLIA [id number] [place] [address] [place] Potassium [Moles/Vol] 4.0 mmol/L Normal 3.7-5.1 [facility] Comment on above: Order Comment: Speci men Type: BLOOD SPECIMENOrdering Facility: [facility] Address: [address] [address] Performed By: #### 2 1-2 ####[facility] LABORATORYCLIA [id number] [place] [address] [place] Sodium [Moles/Vol] 141 mmol/L Normal 136-144 [facility] Comment on above: Order Comment: Speci men Type: BLOOD SPECIMENOrdering Facility: [facility] Address: [address] [address] Performed By: #### 2 1-2 ####[facility] LABORATORYCLIA [id number] [place] [address] [place] Urea nitrogen [Mass/Vol] 13 mg/dL Normal 7-21 [facility] Comment on above: Order Comment: Speci men Type: BLOOD SPECIMENOrdering Facility: [facility] Address: [address] [address] Performed By: #### 2 4321-2 ####[facility] LABORATORYCLIA [id number] [address] CBC panel Auto (Bld)on 11-11 Erythrocyte distribution width (RBC) [Ratio] 17.3 % High 11.5-15.0 [facility] Comment on above: Order Comment: Speci men Type: BLOOD SPECIMENOrdering Facility: [facility] Address: [address] [place] [address] Performed By: #### 5 8410-2 ####[facility] LABORATORYCLIA [id number] [address] Hematocrit (Bld) [Volume fraction] 38.1 % Normal 36.0-46.0 [facility] Comment on above: Order Comment: Speci men Type: BLOOD SPECIMENOrdering Facility: [facility] Address: [address] [place] [address] Performed By: #### 5 8410-2 ####[facility] LABORATORYCLIA [id number] [address] Hemoglobin (Bld) [Mass/Vol] 11.9 g/dL Normal 11.5-15.5 [facility] Comment on above: Order Comment: Speci men Type: BLOOD SPECIMENOrdering Facility: [facility] Address: [address] [place] [address] Performed By: #### 5 8410-2 ####[facility] LABORATORYCLIA [id number] [address] MCH (RBC) [Entitic mass] 30.6 pg Normal 26.0-34.0 [facility] Comment on above: Order Comment: Speci men Type: BLOOD SPECIMENOrdering Facility: [facility] Address: [address] [place] [address] Performed By: #### 5 8410-2 ####[facility] LABORATORYCLIA [id number] [address] [place] MCHC (RBC) [Mass/Vol] 31.2 g/dL Normal 30.5-36.0 [facility] Comment on above: Order Comment: Speci men Type: BLOOD SPECIMENOrdering Facility: [facility] Address: [address] [address] Performed By: #### 5 8410-2 ####[facility] LABORATORYCLIA [id number] [address] STATES [facility] MCV (RBC) [Entitic vol] 97.9 fL Normal 80.0-100.0 [facility] Comment on above: Order Comment: Speci men Type: BLOOD SPECIMENOrdering Facility: [facility] Address: [address] [place] [address] Performed By: #### 5 8410-2 ####[facility] LABORATORYCLIA [id number] [address] [place] Nucleated RBC (Bld) [#/Vol] 10*3/uL Normal <0.01 [facility] Comment on above: Order Comment: Speci men Type: BLOOD SPECIMENOrdering Facility: [facility] Address: [address] [address] Performed By: #### 5 8410-2 ####[facility] LABORATORYCLIA [id number] [address] Platelet mean volume (Bld) [Entitic vol] 8.9 fL Low 9.0-12.7 [facility] Comment on above: Order Comment: Speci men Type: BLOOD SPECIMENOrdering Facility: [facility] Address: [address] [place], [place] [address] Performed By: #### 5 8410-2 ####[facility] LABORATORYCLIA [id number] [address] [place] Platelets (Bld) [#/Vol] 487 10*3/uL High 150-400 [facility] Comment on above: Order Comment: Speci men Type: BLOOD SPECIMENOrdering Facility: [facility] Address: [address] [address] Performed By: #### 5 8410-2 ####[facility] LABORATORYCLIA [id number] [address] [place] RBC (Bld) [#/Vol] 3.89 10*6/uL Low 3.90-5.20 [facility] Comment on above: Order Comment: Speci men Type: BLOOD SPECIMENOrdering Facility: [facility] Address: [address] [place] [address] Performed By: #### 5 8410-2 ####[facility] LABORATORYCLIA [id number] [address] [place] WBC (Bld) [#/Vol] 8.94 10*3/uL Normal 3.70-11.00 [facility] Comment on above: Order Comment: Speci men Type: BLOOD SPECIMENOrdering Facility: [facility] Address: [address] [place] [address] Performed By: #### 5 8410-2 ####[facility] LABORATORYCLIA [id number] [address] [place] NURSING PROGon 11-11-2021 NURSING PROG Normal [facility] THERAPY NTon 11-11-2021 THERAPY NT Normal [facility] THERAPY NT Normal [facility] Basic metabolic 2000 panelon 11-10-2021 Anion gap [Moles/Vol] 12 mmol/L Normal 9-18 [facility] Comment on above: Order Comment: Speci men Type: BLOOD SPECIMENOrdering Facility: [facility] Address: [address] [place] [address] Performed By: #### 2 4321-2 ####[facility] LABORATORYCLIA [id number] [address] [place] Calcium [Mass/Vol] 8.6 mg/dL Normal 8.5-10.2 [facility] Comment on above: Order Comment: Speci men Type: BLOOD SPECIMENOrdering Facility: [facility] Address: [address] [place] [address] Performed By: #### 2 4321-2 ####[facility] LABORATORYCLIA [id number] [address] OF [facility] Chloride [Moles/Vol] 104 mmol/L Normal 97-105 [facility] Comment on above: Order Comment: Speci men Type: BLOOD SPECIMENOrdering Facility: [facility] Address: [address] [place] [address] Performed By: #### 2 4321-2 ####[facility] LABORATORYCLIA [id number] [address] OF [facility] CO2 [Moles/Vol] 23 mmol/L Normal 22-30 [facility] Comment on above: Order Comment: Speci men Type: BLOOD SPECIMENOrdering Facility: [facility] Address: [address] [place] [address] Performed By: #### 2 4321-2 ####[facility]INGTONCLIA [id number] [address] Creatinine [Mass/Vol] 0.29 mg/dL Low 0.58-0.96 [facility] Comment on above: Order Comment: Speci men Type: BLOOD SPECIMENOrdering Facility: [facility] Address: [address] [place] [address] Performed By: #### 2 4321-2 ####[facility] LABORATORYCLIA [id number] [address] ESTIMATED GLOMERULAR FILTRATION RATE 118 mL/min/1.73m??? Normal >=60 [facility] Comment on above: Order Comment: Speci men Type: BLOOD SPECIMENOrdering Facility: [facility] Address: [address] [place] [address] Result Comment: Ameena mated Glomerular Filtration Rate [...] actual GFR. Performed By: #### 2 4321-2 ####[facility] LABORATORYCLIA [id number] [place] [address] [place] Glucose [Mass/Vol] 124 mg/dL High 74-99 [facility] Comment on above: Order Comment: Lauren santana Type: BLOOD SPECIMENOrdering Facility: [facility] Address: [address] [place] [address] Result Comment: The [place] [employer] (ADA) provides guidance for cutoff [...] Standards of Medical Care in Diabetes 2016, [place] [employer]. Diabetes Care. 2016.39(Suppl 1). Performed By: #### 2 4321-2 ####[facility] LABORATORYCLIA [id number] [place] [address] [place] Potassium [Moles/Vol] 3.6 mmol/L Low 3.7-5.1 [facility] Comment on above: Order Comment: Lauren santana Type: BLOOD SPECIMENOrdering Facility: [facility] Address: [address] [place] [address] Performed By: #### 2 4321-2 ####[facility] LABORATORYCLIA [id number] [place] [address] [place] Sodium [Moles/Vol] 139 mmol/L Normal 136-144 [facility] Comment on above: Order Comment: Lauren santana Type: BLOOD SPECIMENOrdering Facility: [facility] Address: [address] [place] [address] Performed By: #### 2 4321-2 ####[facility] LABORATORYCLIA [id number] [place] [address] [place] Urea nitrogen [Mass/Vol] 12 mg/dL Normal 7-21 [facility] Comment on above: Order Comment: Speci men Type: BLOOD SPECIMENOrdering Facility: [facility] Address: [address] [place] [address] Performed By: #### 2 4321-2 ####[facility] LABORATORYCLIA [id number] [address] STATES OF [facility] CBC panel Auto (Bld)on 11-10 Erythrocyte distribution width (RBC) [Ratio] 17.7 % High 11.5-15.0 [facility] Comment on above: Order Comment: Speci men Type: BLOOD SPECIMENOrdering Facility: [facility] Address: [address] [place] [address] Performed By: #### 5 8410-2 ####[facility] LABORATORYCLIA [id number] [address] STATES OF [facility] Hematocrit (Bld) [Volume fraction] 38.1 % Normal 36.0-46.0 [facility] Comment on above: Order Comment: Speci men Type: BLOOD SPECIMENOrdering Facility: [facility] Address: [address] [place] [address] Performed By: #### 5 8410-2 ####[facility] LABORATORYCLIA [id number] [address] Hemoglobin (Bld) [Mass/Vol] 11.8 g/dL Normal 11.5-15.5 [facility] Comment on above: Order Comment: Speci men Type: BLOOD SPECIMENOrdering Facility: [facility] Address: [address] [place] [address] Performed By: #### 5 8410-2 ####[facility] LABORATORYCLIA [id number] [address] MCH (RBC) [Entitic mass] 30.4 pg Normal 26.0-34.0 [facility] Comment on above: Order Comment: Speci men Type: BLOOD SPECIMENOrdering Facility: [facility] Address: [address] [place] [address] Performed By: #### 5 8410-2 ####[facility] LABORATORYCLIA [id number] [address] STATES [facility] MCHC (RBC) [Mass/Vol] 31.0 g/dL Normal 30.5-36.0 [facility] Comment on above: Order Comment: Speci men Type: BLOOD SPECIMENOrdering Facility: [facility] Address: [address] [place] [address] Performed By: #### 5 8410-2 ####[facility] LABORATORYCLIA [id number] [address] MCV (RBC) [Entitic vol] 98.2 fL Normal 80.0-100.0 [facility] Comment on above: Order Comment: Speci men Type: BLOOD SPECIMENOrdering Facility: [facility] Address: [address] [place] [address] Performed By: #### 5 8410-2 ####[facility] LABORATORYCLIA [id number] [address] Nucleated RBC (Bld) [#/Vol] 10*3/uL Normal <0.01 [facility] Comment on above: Order Comment: Speci men Type: BLOOD SPECIMENOrdering Facility: [facility] Address: [address] [place] [address] Performed By: #### 5 8410-2 ####[facility] LABORATORYCLIA [id number] [address] Platelet mean volume (Bld) [Entitic vol] 9.2 fL Normal 9.0-12.7 [facility] Comment on above: Order Comment: Speci men Type: BLOOD SPECIMENOrdering Facility: [facility] Address: [address] [place] [address] Performed By: #### 5 8410-2 ####[facility] LABORATORYCLIA [id number] [address] [place] Platelets (Bld) [#/Vol] 518 10*3/uL High 150-400 [facility] Comment on above: Order Comment: Speci men Type: BLOOD SPECIMENOrdering Facility: [facility] Address: [address] [place] [address] Performed By: #### 5 8410-2 ####[facility] LABORATORYCLIA [id number] [address] [place] RBC (Bld) [#/Vol] 3.88 10*6/uL Low 3.90-5.20 [facility] Comment on above: Order Comment: Speci men Type: BLOOD SPECIMENOrdering Facility: [facility] Address: [address] [place] [address] Performed By: #### 5 8410-2 ####[facility] LABORATORYCLIA [id number] [address] OF [facility] WBC (Bld) [#/Vol] 9.51 10*3/uL Normal 3.70-11.00 [facility] Comment on above: Order Comment: Speci men Type: BLOOD SPECIMENOrdering Facility: [facility] Address: [address] [place] [address] Performed By: #### 5 8410-2 ####[facility] LABORATORYCLIA [id number] [address] STATES OF [facility] NURSING PROGon 11-10-2021 NURSING PROG Normal [facility] NURSING PROG Normal [facility] Basic metabolic 2000 panelon 11-09-2021 Anion gap [Moles/Vol] 9 mmol/L Normal 9-18 [facility] Comment on above: Order Comment: Speci men Type: BLOOD SPECIMENOrdering Facility: [facility] Address: [address] [place] [address] Performed By: #### 2 4321-2 ####[facility] LABORATORYCLIA [id number] [address] [place] Calcium [Mass/Vol] 8.6 mg/dL Normal 8.5-10.2 [facility] Comment on above: Order Comment: Speci men Type: BLOOD SPECIMENOrdering Facility: [facility] Address: [address] [address] Performed By: #### 2 4321-2 ####[facility] LABORATORYCLIA [id number] [address] STATES OF [facility] Chloride [Moles/Vol] 106 mmol/L High 97-105 [facility] Comment on above: Order Comment: Speci men Type: BLOOD SPECIMENOrdering Facility: [facility] Address: [address] [place] [address] Performed By: #### 2 4321-2 ####[facility] LABORATORYCLIA [id number] [address] STATES OF [facility] CO2 [Moles/Vol] 25 mmol/L Normal 22-30 [facility] Comment on above: Order Comment: Speci men Type: BLOOD SPECIMENOrdering Facility: [facility] Address: [address] [place] [address] Performed By: #### 2 4321-2 ####[facility] LABORATORYCLIA [id number] [address] OF [facility] Creatinine [Mass/Vol] 0.34 mg/dL Low 0.58-0.96 [facility] Comment on above: Order Comment: Speci men Type: BLOOD SPECIMENOrdering Facility: [facility] Address: [address] [place] [address] Performed By: #### 2 4321-2 ####[facility] LABORATORYCLIA [id number] [address] ESTIMATED GLOMERULAR FILTRATION RATE 114 mL/min/1.73m??? Normal >=60 [facility] Comment on above: Order Comment: Speci men Type: BLOOD SPECIMENOrdering Facility: [facility] Address: [address] [place] [address] Result Comment: Ameena mated Glomerular Filtration Rate [...] actual GFR. Performed By: #### 2 4321-2 ####[facility] LABORATORYCLIA [id number] [place] [address] [place] Glucose [Mass/Vol] 151 mg/dL High 74-99 [facility] Comment on above: Order Comment: Lauren santana Type: BLOOD SPECIMENOrdering Facility: [facility] Address: [address] [place] [address] Result Comment: The [place] [employer] (ADA) provides guidance for cutoff [...] Standards of Medical Care in Diabetes 2016, [place] [employer]. Diabetes Care. 2016.39(Suppl 1). Performed By: #### 2 4321-2 ####[facility] LABORATORYCLIA [id number] [place] [address] [place] Potassium [Moles/Vol] 3.5 mmol/L Low 3.7-5.1 [facility] Comment on above: Order Comment: Lauren santana Type: BLOOD SPECIMENOrdering Facility: [facility] Address: [address] [address] Performed By: #### 2 4321-2 ####[facility] LABORATORYCLIA [id number] [place] [address] [place] Sodium [Moles/Vol] 140 mmol/L Normal 136-144 [facility] Comment on above: Order Comment: Lauren santana Type: BLOOD SPECIMENOrdering Facility: [facility] Address: [address] [address] Performed By: #### 2 4321-2 ####[facility] LABORATORYCLIA [id number] [place] [address] [place] Urea nitrogen [Mass/Vol] 14 mg/dL Normal 7-21 [facility] Comment on above: Order Comment: Speci men Type: BLOOD SPECIMENOrdering Facility: [facility] Address: [address] [place] [address] Performed By: #### 2 4321-2 ####[facility] LABORATORYCLIA [id number] [address] [place] CASE MANAGEMon 11-09-2021 CASE MANAGEM Normal [facility] CASE MANAGEM Normal [facility] CBC panel Auto (Bld)on 11-09 Erythrocyte distribution width (RBC) [Ratio] 17.8 % High 11.5-15.0 [facility] Comment on above: Order Comment: Speci men Type: BLOOD SPECIMENOrdering Facility: [facility] Address: [address] [place] [address] Performed By: #### 5 8410-2 ####[facility] LABORATORYCLIA [id number] [address] [place] Hematocrit (Bld) [Volume fraction] 37.7 % Normal 36.0-46.0 [facility] Comment on above: Order Comment: Speci men Type: BLOOD SPECIMENOrdering Facility: [facility] Address: [address] [place] [address] Performed By: #### 5 8410-2 ####[facility] LABORATORYCLIA [id number] [address] [place] Hemoglobin (Bld) [Mass/Vol] 12.0 g/dL Normal 11.5-15.5 [facility] Comment on above: Order Comment: Speci men Type: BLOOD SPECIMENOrdering Facility: [facility] Address: [address] [place] [address] Performed By: #### 5 8410-2 ####[facility] LABORATORYCLIA [id number] [address] [place] MCH (RBC) [Entitic mass] 31.0 pg Normal 26.0-34.0 [facility] Comment on above: Order Comment: Speci men Type: BLOOD SPECIMENOrdering Facility: [facility] Address: [address] [place] [address] Performed By: #### 5 8410-2 ####[facility] LABORATORYCLIA [id number] [address] MCHC (RBC) [Mass/Vol] 31.8 g/dL Normal 30.5-36.0 [facility] Comment on above: Order Comment: Speci men Type: BLOOD SPECIMENOrdering Facility: [facility] Address: [address] [place] [address] Performed By: #### 5 8410-2 ####[facility] LABORATORYCLIA [id number] [address] MCV (RBC) [Entitic vol] 97.4 fL Normal 80.0-100.0 [facility] Comment on above: Order Comment: Speci men Type: BLOOD SPECIMENOrdering Facility: [facility] Address: [address] [place] [address] Performed By: #### 5 8410-2 ####[facility] LABORATORYCLIA [id number] [address] Nucleated RBC (Bld) [#/Vol] 10*3/uL Normal <0.01 [facility] Comment on above: Order Comment: Speci men Type: BLOOD SPECIMENOrdering Facility: [facility] Address: [address] [place] [address] Performed By: #### 5 8410-2 ####[facility] LABORATORYCLIA [id number] [address] Platelet mean volume (Bld) [Entitic vol] 8.8 fL Low 9.0-12.7 [facility] Comment on above: Order Comment: Speci men Type: BLOOD SPECIMENOrdering Facility: [facility] Address: [address] [place], [place] [address] Performed By: #### 5 8410-2 ####[facility] LABORATORYCLIA [id number] [address] Platelets (Bld) [#/Vol] 488 10*3/uL High 150-400 [facility] Comment on above: Order Comment: Speci men Type: BLOOD SPECIMENOrdering Facility: [facility] Address: [address] [place] [address] Performed By: #### 5 8410-2 ####[facility] LABORATORYCLIA [id number] [address] [place] RBC (Bld) [#/Vol] 3.87 10*6/uL Low 3.90-5.20 [facility] Comment on above: Order Comment: Speci men Type: BLOOD SPECIMENOrdering Facility: [facility] Address: [address] [place] [address] Performed By: #### 5 8410-2 ####[facility] LABORATORYCLIA [id number] [address] WBC (Bld) [#/Vol] 10.49 10*3/uL Normal 3.70-11.00 [facility] Comment on above: Order Comment: Speci men Type: BLOOD SPECIMENOrdering Facility: [facility] Address: [address] [place] [address] Performed By: #### 5 8410-2 ####[facility] LABORATORYCLIA [id number] [address] OF [facility] NURSING PROGon 11-09-2021 NURSING PROG Normal [facility] NUTRITIONon 11-09-2021 NUTRITION Normal [facility] THERAPY NTon 11-09-2021 THERAPY NT Normal [facility] THERAPY NT Normal [facility] Basic metabolic 2000 panelon 11-08-2021 Anion gap [Moles/Vol] 9 mmol/L Normal 9-18 [facility] Comment on above: Order Comment: Speci men Type: BLOOD SPECIMENOrdering Facility: [facility] Address: [address] [address] Performed By: #### 2 4321-2 ####[facility]ORATORYCLIA [id number] [place] [address] [place] Calcium [Mass/Vol] 8.4 mg/dL Low 8.5-10.2 [facility] Comment on above: Order Comment: Speci men Type: BLOOD SPECIMENOrdering Facility: [facility] Address: [address] [address] Performed By: #### 2 4321-2 ####[facility] LABORATORYCLIA [id number] [place] [address] [place] Chloride [Moles/Vol] 109 mmol/L High 97-105 [facility] Comment on above: Order Comment: Speci men Type: BLOOD SPECIMENOrdering Facility: [facility] Address: [address] [place] [address] Performed By: #### 2 4321-2 ####[facility] LABORATORYCLIA [id number] [place] [address] [place] CO2 [Moles/Vol] 22 mmol/L Normal 22-30 [facility] Comment on above: Order Comment: Speci men Type: BLOOD SPECIMENOrdering Facility: [facility] Address: [address] [place] [address] Performed By: #### 2 4321-2 ####[facility] LABORATORYCLIA [id number] [place] [address] [place] Creatinine [Mass/Vol] 0.29 mg/dL Low 0.58-0.96 [facility] Comment on above: Order Comment: Speci men Type: BLOOD SPECIMENOrdering Facility: [facility] Address: [address] [place] [address] Performed By: #### 2 4321-2 ####[facility] LABORATORYCLIA [id number] [address] [place] ESTIMATED GLOMERULAR FILTRATION RATE 118 mL/min/1.73m??? Normal >=60 [facility] Comment on above: Order Comment: Lauren santana Type: BLOOD SPECIMENOrdering Facility: [facility] Address: [address] [phone] Result Comment: Ameena mated Glomerular Filtration Rate [...] actual GFR. Performed By: #### 2 4321-2 ####[facility] LABORATORYCLIA [id number] [place] [address] [place] Glucose [Mass/Vol] 153 mg/dL High 74-99 [facility] Comment on above: Order Comment: Lauren santana Type: BLOOD SPECIMENOrdering Facility: [facility] Address: [address] [place] [address] Result Comment: The [place] [employer] (ADA) provides guidance for cutoff [...] Standards of Medical Care in Diabetes 2016, [place] [employer]. Diabetes Care. 2016.39(Suppl 1). Performed By: #### 2 4321-2 ####[facility] LABORATORYCLIA [id number] [place] [address] [place] Potassium [Moles/Vol] 3.2 mmol/L Low 3.7-5.1 [facility] Comment on above: Order Comment: Lauren santana Type: BLOOD SPECIMENOrdering Facility: [facility] Address: [address] Performed By: #### 2 4321-2 ####[facility] LABORATORYCLIA [id number] [address] STATES OF [facility] Sodium [Moles/Vol] 140 mmol/L Normal 136-144 [facility] Comment on above: Order Comment: Speci men Type: BLOOD SPECIMENOrdering Facility: [facility] Address: [address] [place] [address] Performed By: #### 2 4321-2 ####[facility] LABORATORYCLIA [id number] [address] STATES OF [facility] Urea nitrogen [Mass/Vol] 21 mg/dL Normal 7-21 [facility] Comment on above: Order Comment: Speci men Type: BLOOD SPECIMENOrdering Facility: [facility] Address: [address] [place] [address] Performed By: #### 2 4321-2 ####[facility] LABORATORYCLIA [id number] [address] STATES OF [facility] CASE MANAGEMon 11-08-2021 CASE MANAGEM Normal [facility] CBC panel Auto (Bld)on 11-08 Erythrocyte distribution width (RBC) [Ratio] 18.3 % High 11.5-15.0 [facility] Comment on above: Order Comment: Speci men Type: BLOOD SPECIMENOrdering Facility: [facility] Address: [address] [place] [address] Performed By: #### 5 8410-2 ####[facility] LABORATORYCLIA [id number] [address] STATES [facility] Hematocrit (Bld) [Volume fraction] 39.4 % Normal 36.0-46.0 [facility] Comment on above: Order Comment: Speci men Type: BLOOD SPECIMENOrdering Facility: [facility] Address: [address] [place] [address] Performed By: #### 5 8410-2 ####[facility] LABORATORYCLIA [id number] [address] STATES OF [facility] Hemoglobin (Bld) [Mass/Vol] 12.3 g/dL Normal 11.5-15.5 [facility] Comment on above: Order Comment: Speci men Type: BLOOD SPECIMENOrdering Facility: [facility] Address: [address] [place] [address] Performed By: #### 5 8410-2 ####[facility] LABORATORYCLIA [id number] [address] MCH (RBC) [Entitic mass] 31.5 pg Normal 26.0-34.0 [facility] Comment on above: Order Comment: Speci men Type: BLOOD SPECIMENOrdering Facility: [facility] Address: [address] [place] [address] Performed By: #### 5 8410-2 ####[facility] LABORATORYCLIA [id number] [address] MCHC (RBC) [Mass/Vol] 31.2 g/dL Normal 30.5-36.0 [facility] Comment on above: Order Comment: Speci men Type: BLOOD SPECIMENOrdering Facility: [facility] Address: [address] [place] [address] Performed By: #### 5 8410-2 ####[facility] LABORATORYCLIA [id number] [address] MCV (RBC) [Entitic vol] 101.0 fL High 80.0-100.0 [facility] Comment on above: Order Comment: Speci men Type: BLOOD SPECIMENOrdering Facility: [facility] Address: [address] [place] [address] Performed By: #### 5 8410-2 ####[facility] LABORATORYCLIA [id number] [address] Nucleated RBC (Bld) [#/Vol] 10*3/uL Normal <0.01 [facility] Comment on above: Order Comment: Speci men Type: BLOOD SPECIMENOrdering Facility: [facility] Address: [address] [place] [address] Performed By: #### 5 8410-2 ####[facility] LABORATORYCLIA [id number] [place] [address] [place] Platelet mean volume (Bld) [Entitic vol] 9.3 fL Normal 9.0-12.7 [facility] Comment on above: Order Comment: Speci men Type: BLOOD SPECIMENOrdering Facility: [facility] Address: [address] [place] [address] Performed By: #### 5 8410-2 ####[facility] LABORATORYCLIA [id number] [place] [address] [place] Platelets (Bld) [#/Vol] 489 10*3/uL High 150-400 [facility] Comment on above: Order Comment: Speci men Type: BLOOD SPECIMENOrdering Facility: [facility] Address: [address] [place] [address] Performed By: #### 5 8410-2 ####[facility] LABORATORYCLIA [id number] [place] [address] [place] RBC (Bld) [#/Vol] 3.90 10*6/uL Normal 3.90-5.20 [facility] Comment on above: Order Comment: Speci men Type: BLOOD SPECIMENOrdering Facility: [facility] Address: [address] [place] [address] Performed By: #### 5 8410-2 ####[facility] LABORATORYCLIA [id number] [place] [address] [place] WBC (Bld) [#/Vol] 12.37 10*3/uL High 3.70-11.00 [facility] Comment on above: Order Comment: Speci men Type: BLOOD SPECIMENOrdering Facility: [facility] Address: [address] [place] [address] Performed By: #### 5 8410-2 ####[facility] LABORATORYCLIA [id number] [address] [place] CONSULT PROGon 11-08-2021 CONSULT PROG Normal [facility] THERAPY NTon 11-08-2021 THERAPY NT Normal [facility] ALLIED HEALTHon 11-07-2021 ALLIED HEALTH Normal [facility] Basic metabolic 2000 panelon 11-07-2021 Anion gap [Moles/Vol] 9 mmol/L Normal 9-18 [facility] Comment on above: Order Comment: Speci men Type: BLOOD SPECIMENOrdering Facility: [facility] Address: [address] [place] [address] Performed By: #### 2 4321-2 ####[facility] LABORATORYCLIA [id number] [place] [address] [place] Calcium [Mass/Vol] 8.6 mg/dL Normal 8.5-10.2 [facility] Comment on above: Order Comment: Speci men Type: BLOOD SPECIMENOrdering Facility: [facility] Address: [address] [place] [address] Performed By: #### 2 4321-2 ####[facility] LABORATORYCLIA [id number] [place] [address] [place] Chloride [Moles/Vol] 108 mmol/L High 97-105 [facility] Comment on above: Order Comment: Speci men Type: BLOOD SPECIMENOrdering Facility: [facility] Address: [address] [place] [address] Performed By: #### 2 4321-2 ####[facility] LABORATORYCLIA [id number] [place] [address] [place] CO2 [Moles/Vol] 23 mmol/L Normal 22-30 [facility] Comment on above: Order Comment: Speci men Type: BLOOD SPECIMENOrdering Facility: [facility] Address: [address] [place] [address] Performed By: #### 2 4321-2 ####[facility] LABORATORYCLIA [id number] [place] [address] [place] Creatinine [Mass/Vol] 0.30 mg/dL Low 0.58-0.96 [facility] Comment on above: Order Comment: Speci men Type: BLOOD SPECIMENOrdering Facility: [facility] Address: [address] [place] [address] Performed By: #### 2 4321-2 ####[facility] [id number] [address] ESTIMATED GLOMERULAR FILTRATION RATE 117 mL/min/1.73m??? Normal >=60 [facility] Comment on above: Order Comment: Lauren santana Type: BLOOD SPECIMENOrdering Facility: [facility] Address: [address] [place] [address] Result Comment: Ameena mated Glomerular Filtration Rate [...] actual GFR. Performed By: #### 2 4321-2 ####[facility] HEALTHIA [id number] [place] [address] [place] Glucose [Mass/Vol] 171 mg/dL High 74-99 [facility] Comment on above: Order Comment: Lauren santana Type: BLOOD SPECIMENOrdering Facility: [facility] Address: [address] [place] [address] Result Comment: The [place] [employer] (ADA) provides guidance for cutoff [...] Standards of Medical Care in Diabetes 2016, [place] [employer]. Diabetes Care. 2016.39(Suppl 1). Performed By: #### 2 4321-2 ####[facility] LABORATORYCLIA [id number] [place] [address] [place] Potassium [Moles/Vol] 3.5 mmol/L Low 3.7-5.1 [facility] Comment on above: Order Comment: Speci men Type: BLOOD SPECIMENOrdering Facility: [facility] Address: [address] [place] [address] Performed By: #### 2 4321-2 ####[facility] LABORATORYCLIA [id number] [address] [place] Sodium [Moles/Vol] 140 mmol/L Normal 136-144 [facility] Comment on above: Order Comment: Speci men Type: BLOOD SPECIMENOrdering Facility: [facility] Address: [address] [place] [address] Performed By: #### 2 4321-2 ####[facility] LABORATORYCLIA [id number] [address] [place] Urea nitrogen [Mass/Vol] 27 mg/dL High 7-21 [facility] Comment on above: Order Comment: Speci men Type: BLOOD SPECIMENOrdering Facility: [facility] Address: [address] [place] [address] Performed By: #### 2 4321-2 ####[facility] LABORATORYCLIA [id number] [address] [place] CASE MANAGEMon 11-07-2021 CASE MANAGEM Normal [facility] CASE MANAGEM Normal [facility] CBC panel Auto (Bld)on 11-07 Erythrocyte distribution width (RBC) [Ratio] 18.5 % High 11.5-15.0 [facility] Comment on above: Order Comment: Speci men Type: BLOOD SPECIMENOrdering Facility: [facility] Address: [address] [place] [address] Performed By: #### 5 8410-2 ####[facility] LABORATORYCLIA [id number] [address] [place] Hematocrit (Bld) [Volume fraction] 36.8 % Normal 36.0-46.0 [facility] Comment on above: Order Comment: Speci men Type: BLOOD SPECIMENOrdering Facility: [facility] Address: [address] [place] [address] Performed By: #### 5 8410-2 ####[facility] LABORATORYCLIA [id number] [address] STATES OF [facility] Hemoglobin (Bld) [Mass/Vol] 11.7 g/dL Normal 11.5-15.5 [facility] Comment on above: Order Comment: Speci men Type: BLOOD SPECIMENOrdering Facility: [facility] Address: [address] [place] [address] Performed By: #### 5 8410-2 ####[facility] LABORATORYCLIA [id number] [address] STATES OF [facility] MCH (RBC) [Entitic mass] 30.9 pg Normal 26.0-34.0 [facility] Comment on above: Order Comment: Speci men Type: BLOOD SPECIMENOrdering Facility: [facility] Address: [address] [place] [address] Performed By: #### 5 8410-2 ####[facility] LABORATORYCLIA [id number] [address] MCHC (RBC) [Mass/Vol] 31.8 g/dL Normal 30.5-36.0 [facility] Comment on above: Order Comment: Speci men Type: BLOOD SPECIMENOrdering Facility: [facility] Address: [address] [place] [address] Performed By: #### 5 8410-2 ####[facility] LABORATORYCLIA [id number] [address] [place] MCV (RBC) [Entitic vol] 97.1 fL Normal 80.0-100.0 [facility] Comment on above: Order Comment: Speci men Type: BLOOD SPECIMENOrdering Facility: [facility] Address: [address] [place] [address] Performed By: #### 5 8410-2 ####[facility] LABORATORYCLIA [id number] [address] [place] Nucleated RBC (Bld) [#/Vol] 0.02 10*3/uL High <0.01 [facility] Comment on above: Order Comment: Speci men Type: BLOOD SPECIMENOrdering Facility: [facility] Address: [address] [place] [address] Performed By: #### 5 8410-2 ####[facility] LABORATORYCLIA [id number] [address] [place] Platelet mean volume (Bld) [Entitic vol] 9.2 fL Normal 9.0-12.7 [facility] Comment on above: Order Comment: Speci men Type: BLOOD SPECIMENOrdering Facility: [facility] Address: [address] [place] [address] Performed By: #### 5 8410-2 ####[facility] LABORATORYCLIA [id number] [address] [place] Platelets (Bld) [#/Vol] 520 10*3/uL High 150-400 [facility] Comment on above: Order Comment: Speci men Type: BLOOD SPECIMENOrdering Facility: [facility] Address: [address] [place] [address] Performed By: #### 5 8410-2 ####[facility] LABORATORYCLIA [id number] [place] [address] [place] RBC (Bld) [#/Vol] 3.79 10*6/uL Low 3.90-5.20 [facility] Comment on above: Order Comment: Speci men Type: BLOOD SPECIMENOrdering Facility: [facility] Address: [address] [place] [address] Performed By: #### 5 8410-2 ####[facility] LABORATORYCLIA [id number] [address] [place] WBC (Bld) [#/Vol] 13.66 10*3/uL High 3.70-11.00 [facility] Comment on above: Order Comment: Speci men Type: BLOOD SPECIMENOrdering Facility: [facility] Address: [address] [place], [place] [phone] Performed By: #### 5 8410-2 ####[facility] LABORATORYCLIA [id number] [place] [address] [place] NURSING PROGon 11-07-2021 NURSING PROG Normal [facility] NURSING PROG Normal [facility] NURSING PROG Normal [facility] THERAPY NTon 11-07-2021 THERAPY NT Normal [facility] THERAPY NT Normal [facility] THERAPY NT Normal [facility] THERAPY NT Normal [facility] XR MOD BARIUM SWALLOW W SPEE [place] 11-07-2021 XR MOD BARIUM SWALLOW W SPEECH Normal [facility] ALLIED HEALTHon 11-06-2021 ALLIED HEALTH Normal [facility] Basic metabolic 2000 panelon 11-06-2021 Anion gap [Moles/Vol] 11 mmol/L Normal 9-18 [facility] Comment on above: Order Comment: Speci men Type: BLOOD SPECIMENOrdering Facility: [facility] Address: [address] [place], [place] [address] Performed By: #### 2 4321-2, 2776-08, ####[facility] LABORATORYCLIA [id number] [place] [address] [place] Calcium [Mass/Vol] 8.9 mg/dL Normal 8.5-10.2 [facility] Comment on above: Order Comment: Speci men Type: BLOOD SPECIMENOrdering Facility: [facility] Address: [address] [phone] Performed By: #### 2 4321-2, 2777, ####[facility] LABORATORYCLIA [id number] [place] [address] [place] Chloride [Moles/Vol] 108 mmol/L High 97-105 [facility] Comment on above: Order Comment: Speci men Type: BLOOD SPECIMENOrdering Facility: [facility] Address: [address] [phone] Performed By: #### 2 4321-2, 2776-08, ####[facility] [id number] [address] STATES [facility] CO2 [Moles/Vol] 27 mmol/L Normal 22-30 [facility] Comment on above: Order Comment: Speci men Type: BLOOD SPECIMENOrdering Facility: [facility] Address: [address] [place] [address] Performed By: #### 2 4321-2, 2776-08, ####[facility] [id number] [address] Creatinine [Mass/Vol] 0.33 mg/dL Low 0.58-0.96 [facility] Comment on above: Order Comment: Speci men Type: BLOOD SPECIMENOrdering Facility: [facility] Address: [address] [place] [address] Performed By: #### 2 4321-2, 2776-08, ####[facility] [id number] [address] ESTIMATED GLOMERULAR FILTRATION RATE 114 mL/min/1.73m??? Normal >=60 [facility] Comment on above: Order Comment: Speci men Type: BLOOD SPECIMENOrdering Facility: [facility] Address: [address] [place] [address] Result Comment: Ameena mated Glomerular Filtration Rate [...] GFR. Performed By: #### 2 4321-2, 2777-, ####[facility] LABORATORYCLIA [id number] [address] [place] [id number] [place] Glucose [Mass/Vol] 203 mg/dL High 74-99 [facility] Comment on above: Order Comment: Lauren santana Type: BLOOD SPECIMENOrdering Facility: [facility] Address: [address] [place] [address] Result Comment: The [place] [employer] (ADA) provides guidance for cutoff [...] Standards of Medical Care in Diabetes 2016, [place] [employer]. Diabetes Care. 2016.39(Suppl 1). Performed By: #### 2 4321-2, 2776-08, ####[facility] LABORATORYCLIA [id number] [place] [address] [place] Potassium [Moles/Vol] 3.2 mmol/L Low 3.7-5.1 [facility] Comment on above: Order Comment: Lauren santana Type: BLOOD SPECIMENOrdering Facility: [facility] Address: [address] [place], [place] [phone] Performed By: #### 2 4321-2, 2776-08, ####[facility] LABORATORYCLIA [id number] [place] [address] [place] Sodium [Moles/Vol] 146 mmol/L High 136-144 [facility] Comment on above: Order Comment: Lauren santana Type: BLOOD SPECIMENOrdering Facility: [facility] Address: [address] [place], [place] [phone] Performed By: #### 2 4321-2, 27702-15, ####[facility] LABORATORYCLIA [id number] [place] [address] [place] Urea nitrogen [Mass/Vol] 26 mg/dL High 7-21 [facility] Comment on above: Order Comment: Speci men Type: BLOOD SPECIMENOrdering Facility: [facility] Address: [address] [place] [address] Performed By: #### 2 4321-2, 2777-1, 34866-4 ####[facility] LABORATORYCLIA [id number] [address] [place] CALCIUM IONIZED Bon 11-07-19 Calcium.ionized (BldV) [Mass/Vol] 1.14 mmol/L Normal 1.08-1.30 [facility] Comment on above: Order Comment: Speci men Type: BLOOD SPECIMENOrdering Facility: [facility] Address: [address] [place] [address] Performed By: #### I CA ####[facility] LABORATORYCLIA [id number] [address] STATES OF [facility] Calcium.ionized adjusted to pH 7.4 (Bld) [Moles/Vol] 1.14 mmol/L Normal 1.08-1.30 [facility] Comment on above: Order Comment: Speci men Type: BLOOD SPECIMENOrdering Facility: [facility] Address: [address] [place] [address] Performed By: #### I CA ####[facility] LABORATORYCLIA [id number] [address] [place] CASE MANAGEMon 11-06-2021 CASE MANAGEM Normal [facility] CBC panel Auto (Bld)on 11-06 Erythrocyte distribution width (RBC) [Ratio] 18.5 % High 11.5-15.0 [facility] Comment on above: Order Comment: Speci men Type: BLOOD SPECIMENOrdering Facility: [facility] Address: [address] [place] [address] Performed By: #### 5 8410-2 ####[facility] LABORATORYCLIA [id number] [address] [place] Hematocrit (Bld) [Volume fraction] 39.3 % Normal 36.0-46.0 [facility] Comment on above: Order Comment: Speci men Type: BLOOD SPECIMENOrdering Facility: [facility] Address: [address] [place] [address] Performed By: #### 5 8410-2 ####[facility] LABORATORYCLIA [id number] [address] OF [facility] Hemoglobin (Bld) [Mass/Vol] 11.9 g/dL Normal 11.5-15.5 [facility] Comment on above: Order Comment: Speci men Type: BLOOD SPECIMENOrdering Facility: [facility] Address: [address] [place] [address] Performed By: #### 5 8410-2 ####[facility] LABORATORYCLIA [id number] [address] OF [facility] MCH (RBC) [Entitic mass] 31.0 pg Normal 26.0-34.0 [facility] Comment on above: Order Comment: Speci men Type: BLOOD SPECIMENOrdering Facility: [facility] Address: [address] [place] [address] Performed By: #### 5 8410-2 ####[facility] LABORATORYCLIA [id number] [address] MCHC (RBC) [Mass/Vol] 30.3 g/dL Low 30.5-36.0 [facility] Comment on above: Order Comment: Speci men Type: BLOOD SPECIMENOrdering Facility: [facility] Address: [address] [place] [address] Performed By: #### 5 8410-2 ####[facility] LABORATORYCLIA [id number] [address] [place] MCV (RBC) [Entitic vol] 102.3 fL High 80.0-100.0 [facility] Comment on above: Order Comment: Speci men Type: BLOOD SPECIMENOrdering Facility: [facility] Address: [address] [place] [address] Performed By: #### 5 8410-2 ####[facility] LABORATORYCLIA [id number] [place] [address] [place] Nucleated RBC (Bld) [#/Vol] 0.04 10*3/uL High <0.01 [facility] Comment on above: Order Comment: Speci men Type: BLOOD SPECIMENOrdering Facility: [facility] Address: [address] [place] [address] Performed By: #### 5 8410-2 ####[facility] LABORATORYCLIA [id number] [address] [place] Platelet mean volume (Bld) [Entitic vol] 9.5 fL Normal 9.0-12.7 [facility] Comment on above: Order Comment: Speci men Type: BLOOD SPECIMENOrdering Facility: [facility] Address: [address] [place] [address] Performed By: #### 5 8410-2 ####[facility] LABORATORYCLIA [id number] [address] [place] Platelets (Bld) [#/Vol] 565 10*3/uL High 150-400 [facility] Comment on above: Order Comment: Speci men Type: BLOOD SPECIMENOrdering Facility: [facility] Address: [address] [place] [address] Performed By: #### 5 8410-2 ####[facility] LABORATORYCLIA [id number] [address] [place] RBC (Bld) [#/Vol] 3.84 10*6/uL Low 3.90-5.20 [facility] Comment on above: Order Comment: Speci men Type: BLOOD SPECIMENOrdering Facility: [facility] Address: [address] [place] [address] Performed By: #### 5 8410-2 ####[facility] LABORATORYCLIA [id number] [place] [address] [place] WBC (Bld) [#/Vol] 16.56 10*3/uL High 3.70-11.00 [facility] Comment on above: Order Comment: Speci men Type: BLOOD SPECIMENOrdering Facility: [facility] Address: [address] [place] [address] Performed By: #### 5 8410-2 ####[facility] LABORATORYCLIA [id number] [address] [place] Magnesium SerPl-mCncon 11-06 Magnesium [Mass/Vol] 2.0 mg/dL Normal 1.7-2.3 [facility] Comment on above: Order Comment: Speci men Type: BLOOD SPECIMENOrdering Facility: [facility] Address: [address] [place] [address] Performed By: #### 2 4321-2, 277-, ####[facility] LABORATORYCLIA [id number] [address] [place] NURSING PROGon 11-06-2021 NURSING PROG Normal [facility] NUTRITIONon 11-06-2021 NUTRITION Normal [facility] Phosphate SerPl-mCncon 11-06 Phosphate [Mass/Vol] 2.7 mg/dL Normal 2.7-4.8 [facility] Comment on above: Order Comment: Speci men Type: BLOOD SPECIMENOrdering Facility: [facility] Address: [address] [place] [address] Performed By: #### 2 4321-2, 27702-15, ####[facility] LABORATORYCLIA [id number] [address] [place] THERAPY NTon 11-06-2021 THERAPY NT Normal [facility] XR CHEST 1V FRONTALon 2021 XR CHEST 1V FRONTAL Normal [facility] ALLIED HEALTHon 11-05-2021 ALLIED HEALTH Normal [facility] Basic metabolic 2000 panelon 11-05-2021 Anion gap [Moles/Vol] 12 mmol/L Normal 9-18 [facility] Comment on above: Order Comment: Speci men Type: BLOOD SPECIMENOrdering Facility: [facility] Address: [address] [place] [address] Performed By: #### 2 4321-2, , 2776-08 ####[facility] LABORATORYCLIA [id number] [place] [address] [place] Calcium [Mass/Vol] 9.0 mg/dL Normal 8.5-10.2 [facility] Comment on above: Order Comment: Speci men Type: BLOOD SPECIMENOrdering Facility: [facility] Address: [address] [place] [address] Performed By: #### 2 4321-2, , 2776-08 ####[facility] LABORATORYCLIA [id number] [place] [address] [place] Chloride [Moles/Vol] 112 mmol/L High 97-105 [facility] Comment on above: Order Comment: Speci men Type: BLOOD SPECIMENOrdering Facility: [facility] Address: [address] [place] [address] Performed By: #### 2 1-2, , 2776-08 ####[facility] LABORATORYCLIA [id number] [place] [address] [place] CO2 [Moles/Vol] 23 mmol/L Normal 22-30 [facility] Comment on above: Order Comment: Speci men Type: BLOOD SPECIMENOrdering Facility: [facility] Address: [address] [place], [place] [address] Performed By: #### 2 4321-2, , 2776-08 ####[facility] LABORATORYCLIA [id number] [place] [address] [place] Creatinine [Mass/Vol] 0.33 mg/dL Low 0.58-0.96 [facility] Comment on above: Order Comment: Speci men Type: BLOOD SPECIMENOrdering Facility: [facility] Address: [address] [place] [address] Performed By: #### 2 4321-2, , 2776-08 ####[facility] LABORATORYCLIA [id number] [place] [address] [place] ESTIMATED GLOMERULAR FILTRATION RATE 114 mL/min/1.73m??? Normal >=60 [facility] Comment on above: Order Comment: Lauren esther Type: BLOOD SPECIMENOrdering Facility: [facility] Address: [address] [place] [address] Result Comment: Ameena mated Glomerular Filtration Rate [...] actual GFR. Performed By: #### 2 4321-2, 31239-6, 2776-08 ####[facility] LABORATORYCLIA [id number] [place] [id number] [place] Glucose [Mass/Vol] 298 mg/dL High 74-99 [facility] Comment on above: Order Comment: Lauren santana Type: BLOOD SPECIMENOrdering Facility: [facility] Address: [address] [place] [address] Result Comment: The [place] [employer] (ADA) provides guidance for cutoff [...] Standards of Medical Care in Diabetes 2016, [place] [employer]. Diabetes Care. 2016.39(Suppl 1). Performed By: #### 2 4321-2, 33252-6, 2776- ####[facility] LABORATORYCLIA [id number] [place] [address] [place] Potassium [Moles/Vol] 4.0 mmol/L Normal 3.7-5.1 [facility] Comment on above: Order Comment: Speci men Type: BLOOD SPECIMENOrdering Facility: [facility] Address: [address] [place] [address] Performed By: #### 2 4321-2, , 2776-08 ####[facility] LABORATORYCLIA [id number] [place] [address] [place] Sodium [Moles/Vol] 147 mmol/L High 136-144 [facility] Comment on above: Order Comment: Speci men Type: BLOOD SPECIMENOrdering Facility: [facility] Address: [address] [place] [address] Performed By: #### 2 4321-2, , 2776-08 ####[facility] LABORATORYCLIA [id number] [place] [address] [place] Urea nitrogen [Mass/Vol] 32 mg/dL High 7-21 [facility] Comment on above: Order Comment: Speci men Type: BLOOD SPECIMENOrdering Facility: [facility] Address: [address] [place] [address] Performed By: #### 2 4321-2, , 2776-08 ####[facility] LABORATORYCLIA [id number] [place] [address] [place] CALCIUM IONIZED Bon 11-06-19 22 Calcium.ionized (BldV) [Mass/Vol] 1.23 mmol/L Normal 1.08-1.30 [facility] Comment on above: Order Comment: Speci men Type: BLOOD SPECIMENOrdering Facility: [facility] Address: [address] [place] [address] Performed By: #### I CA ####[facility] LABORATORYCLIA [id number] [address] [place] Calcium.ionized adjusted to pH 7.4 (Bld) [Moles/Vol] 1.27 mmol/L Normal 1.08-1.30 [facility] Comment on above: Order Comment: Speci men Type: BLOOD SPECIMENOrdering Facility: [facility] Address: [address] [place] [address] Performed By: #### I CA ####[facility] LABORATORYCLIA [id number] [address] [place] CASE MANAGEMon 11-05-2021 CASE MANAGEM Normal [facility] CASE MANAGEM Normal [facility] CBC panel Auto (Bld)on 11-05 Erythrocyte distribution width (RBC) [Ratio] 18.6 % High 11.5-15.0 [facility] Comment on above: Order Comment: Speci men Type: BLOOD SPECIMENOrdering Facility: [facility] Address: [address] [place] [address] Performed By: #### 5 8410-2 ####[facility] LABORATORYCLIA [id number] [address] STATES [facility] Hematocrit (Bld) [Volume fraction] 31.5 % Low 36.0-46.0 [facility] Comment on above: Order Comment: Speci men Type: BLOOD SPECIMENOrdering Facility: [facility] Address: [address] [place] [address] Performed By: #### 5 8410-2 ####[facility] LABORATORYCLIA [id number] [address] [place] Hemoglobin (Bld) [Mass/Vol] 9.7 g/dL Low 11.5-15.5 [facility] Comment on above: Order Comment: Speci men Type: BLOOD SPECIMENOrdering Facility: [facility] Address: [address] [place] [address] Performed By: #### 5 8410-2 ####[facility] LABORATORYCLIA [id number] [address] STATES [facility] MCH (RBC) [Entitic mass] 31.2 pg Normal 26.0-34.0 [facility] Comment on above: Order Comment: Speci men Type: BLOOD SPECIMENOrdering Facility: [facility] Address: [address] [place] [address] Performed By: #### 5 8410-2 ####[facility] LABORATORYCLIA [id number] [address] STATES [facility] MCHC (RBC) [Mass/Vol] 30.8 g/dL Normal 30.5-36.0 [facility] Comment on above: Order Comment: Speci men Type: BLOOD SPECIMENOrdering Facility: [facility] Address: [address] [place] [address] Performed By: #### 5 8410-2 ####[facility] LABORATORYCLIA [id number] [address] MCV (RBC) [Entitic vol] 101.3 fL High 80.0-100.0 [facility] Comment on above: Order Comment: Speci men Type: BLOOD SPECIMENOrdering Facility: [facility] Address: [address] [place] [address] Performed By: #### 5 8410-2 ####[facility] LABORATORYCLIA [id number] [address] Nucleated RBC (Bld) [#/Vol] 10*3/uL Normal <0.01 [facility] Comment on above: Order Comment: Speci men Type: BLOOD SPECIMENOrdering Facility: [facility] Address: [address] [place] [address] Performed By: #### 5 8410-2 ####[facility] LABORATORYCLIA [id number] [address] [place] Platelet mean volume (Bld) [Entitic vol] 9.8 fL Normal 9.0-12.7 [facility] Comment on above: Order Comment: Speci men Type: BLOOD SPECIMENOrdering Facility: [facility] Address: [address] [place] [address] Performed By: #### 5 8410-2 ####[facility] LABORATORYCLIA [id number] [address] [place] Platelets (Bld) [#/Vol] 425 10*3/uL High 150-400 [facility] Comment on above: Order Comment: Speci men Type: BLOOD SPECIMENOrdering Facility: [facility] Address: [address] [place] [address] Performed By: #### 5 8410-2 ####[facility] LABORATORYCLIA [id number] [address] STATES OF [facility] RBC (Bld) [#/Vol] 3.11 10*6/uL Low 3.90-5.20 [facility] Comment on above: Order Comment: Speci men Type: BLOOD SPECIMENOrdering Facility: [facility] Address: [address] [place] [address] Performed By: #### 5 8410-2 ####[facility] LABORATORYCLIA [id number] [address] WBC (Bld) [#/Vol] 10.04 10*3/uL Normal 3.70-11.00 [facility] Comment on above: Order Comment: Speci men Type: BLOOD SPECIMENOrdering Facility: [facility] Address: [address] [place] [address] Performed By: #### 5 8410-2 ####[facility] LABORATORYCLIA [id number] [address] CTA HEAD WO/W IVCONon 2021 CTA HEAD WO/W IVCON Normal [facility] Magnesium SerPl-mCncon 11-05 Magnesium [Mass/Vol] 2.3 mg/dL Normal 1.7-2.3 [facility] Comment on above: Order Comment: Speci men Type: BLOOD SPECIMENOrdering Facility: [facility] Address: [address] [place] [address] Performed By: #### 2 4321-2, 74258-8, 2777-1 ####[facility] LABORATORYCLIA [id number] [address] OF [facility] NURSING PROGon 11-05-2021 NURSING PROG Normal [facility] Phosphate SerPl-mCncon 11-05 Phosphate [Mass/Vol] 3.1 mg/dL Normal 2.7-4.8 [facility] Comment on above: Order Comment: Speci men Type: BLOOD SPECIMENOrdering Facility: [facility] Address: [address] [place] [address] Performed By: #### 2 4321-2, , 2776-08 ####[facility] LABORATORYCLIA [id number] [place] [address] [place] THERAPY NTon 11-05-2021 THERAPY NT Normal [facility] ALLIED HEALTHon 11-04-2021 ALLIED HEALTH Normal [facility] Basic metabolic 2000 panelon 11-04-2021 Anion gap [Moles/Vol] 8 mmol/L Low 9-18 [facility] Comment on above: Order Comment: Speci men Type: BLOOD SPECIMENOrdering Facility: [facility] Address: [address] [place] [address] Performed By: #### 2 4321-2, , 2776-08 ####[facility] LABORATORYCLIA [id number] [place] [address] [place] Calcium [Mass/Vol] 8.5 mg/dL Normal 8.5-10.2 [facility] Comment on above: Order Comment: Speci men Type: BLOOD SPECIMENOrdering Facility: [facility] Address: [address] [place] [address] Performed By: #### 2 4321-2, , 2776-08 ####[facility] LABORATORYCLIA [id number] [place] [address] [place] Chloride [Moles/Vol] 114 mmol/L High 97-105 [facility] Comment on above: Order Comment: Speci men Type: BLOOD SPECIMENOrdering Facility: [facility] Address: [address] [place] [address] Performed By: #### 2 4321-2, , 2776-08 ####[facility] LABORATORYCLIA [id number] [address] [place] CO2 [Moles/Vol] 25 mmol/L Normal 22-30 [facility] Comment on above: Order Comment: Speci men Type: BLOOD SPECIMENOrdering Facility: [facility] Address: [address] [place] [address] Performed By: #### 2 4321-2, , 2776-08 ####[facility] LABORATORYCLIA [id number] [address] STATES OF [facility] Creatinine [Mass/Vol] 0.32 mg/dL Low 0.58-0.96 [facility] Comment on above: Order Comment: Speci men Type: BLOOD SPECIMENOrdering Facility: [facility] Address: [address] [place] [address] Performed By: #### 2 4321-2, , 2776-08 ####[facility] LABORATORYCLIA [id number] [address] ESTIMATED GLOMERULAR FILTRATION RATE 115 mL/min/1.73m??? Normal >=60 [facility] Comment on above: Order Comment: Speci men Type: BLOOD SPECIMENOrdering Facility: [facility] Address: [address] [place] [address] Result Comment: Ameena mated Glomerular Filtration Rate [...] By: #### 2 4321-2, , 2776-08 ####[facility] LABORATORYCLIA [id number] [address] [place] Glucose [Mass/Vol] 220 mg/dL High 74-99 [facility] Comment on above: Order Comment: Speci men Type: BLOOD SPECIMENOrdering Facility: [facility] Address: [address] [place] [address] Result Comment: The [place] [employer] (ADA) provides guidance for cutoff [...] Standards of Medical Care in Diabetes 2016, [place] [employer]. Diabetes Care. 2016.39(Suppl 1). Performed By: #### 2 4321-2, , 2776-08 ####[facility] LABORATORYCLIA [id number] [place] [address] [place] Potassium [Moles/Vol] 3.5 mmol/L Low 3.7-5.1 [facility] Comment on above: Order Comment: Speci men Type: BLOOD SPECIMENOrdering Facility: [facility] Address: [address] [place], [place] [address] Performed By: #### 2 4321-2, , 2776-08 ####[facility] LABORATORYCLIA [id number] [place] [address] [place] Sodium [Moles/Vol] 147 mmol/L High 136-144 [facility] Comment on above: Order Comment: Speci men Type: BLOOD SPECIMENOrdering Facility: [facility] Address: [address] Performed By: #### 2 4321-2, , 2776-08 ####[facility] LABORATORYCLIA [id number] [place] [address] [place] Urea nitrogen [Mass/Vol] 30 mg/dL High 7-21 [facility] Comment on above: Order Comment: Speci men Type: BLOOD SPECIMENOrdering Facility: [facility] Address: [address] Performed By: #### 2 4321-2, 10042-3, 2777-1 ####[facility] LABORATORYCLIA [id number] [address] CALCIUM IONIZED Bon 11-05-19 Calcium.ionized (BldV) [Mass/Vol] 1.17 mmol/L Normal 1.08-1.30 [facility] Comment on above: Order Comment: Speci men Type: BLOOD SPECIMENOrdering Facility: [facility] Address: [address] [place] [address] Performed By: #### I CA ####[facility] LABORATORYCLIA [id number] [address] Calcium.ionized adjusted to pH 7.4 (Bld) [Moles/Vol] 1.21 mmol/L Normal 1.08-1.30 [facility] Comment on above: Order Comment: Speci men Type: BLOOD SPECIMENOrdering Facility: [facility] Address: [address] [place] [address] Performed By: #### I CA ####[facility] LABORATORYCLIA [id number] [address] CBC panel Auto (Bld)on 11-04 Erythrocyte distribution width (RBC) [Ratio] 18.7 % High 11.5-15.0 [facility] Comment on above: Order Comment: Speci men Type: BLOOD SPECIMENOrdering Facility: [facility] Address: [address] [place] [address] Performed By: #### 5 8410-2 ####[facility] LABORATORYCLIA [id number] [address] Hematocrit (Bld) [Volume fraction] 30.0 % Low 36.0-46.0 [facility] Comment on above: Order Comment: Speci men Type: BLOOD SPECIMENOrdering Facility: [facility] Address: [address] [place] [address] Performed By: #### 5 8410-2 ####[facility] LABORATORYCLIA [id number] [address] OF [facility] Hemoglobin (Bld) [Mass/Vol] 9.4 g/dL Low 11.5-15.5 [facility] Comment on above: Order Comment: Speci men Type: BLOOD SPECIMENOrdering Facility: [facility] Address: [address] [place] [address] Performed By: #### 5 8410-2 ####[facility] LABORATORYCLIA [id number] [address] MCH (RBC) [Entitic mass] 31.1 pg Normal 26.0-34.0 [facility] Comment on above: Order Comment: Speci men Type: BLOOD SPECIMENOrdering Facility: [facility] Address: [address] [place] [address] Performed By: #### 5 8410-2 ####[facility] LABORATORYCLIA [id number] [address] MCHC (RBC) [Mass/Vol] 31.3 g/dL Normal 30.5-36.0 [facility] Comment on above: Order Comment: Speci men Type: BLOOD SPECIMENOrdering Facility: [facility] Address: [address] [place] [address] Performed By: #### 5 8410-2 ####[facility] LABORATORYCLIA [id number] [address] MCV (RBC) [Entitic vol] 99.3 fL Normal 80.0-100.0 [facility] Comment on above: Order Comment: Speci men Type: BLOOD SPECIMENOrdering Facility: [facility] Address: [address] [place] [address] Performed By: #### 5 8410-2 ####[facility] LABORATORYCLIA [id number] [address] Nucleated RBC (Bld) [#/Vol] 0.04 10*3/uL High <0.01 [facility] Comment on above: Order Comment: Speci men Type: BLOOD SPECIMENOrdering Facility: [facility] Address: [address] [place], [place] [address] Performed By: #### 5 8410-2 ####[facility] LABORATORYCLIA [id number] [address] Platelet mean volume (Bld) [Entitic vol] 9.8 fL Normal 9.0-12.7 [facility] Comment on above: Order Comment: Speci men Type: BLOOD SPECIMENOrdering Facility: [facility] Address: [address] [place] [address] Performed By: #### 5 8410-2 ####[facility] LABORATORYCLIA [id number] [address] [place] Platelets (Bld) [#/Vol] 365 10*3/uL Normal 150-400 [facility] Comment on above: Order Comment: Speci men Type: BLOOD SPECIMENOrdering Facility: [facility] Address: [address] [place] [address] Performed By: #### 5 8410-2 ####[facility] LABORATORYCLIA [id number] [address] [place] RBC (Bld) [#/Vol] 3.02 10*6/uL Low 3.90-5.20 [facility] Comment on above: Order Comment: Speci men Type: BLOOD SPECIMENOrdering Facility: [facility] Address: [address] [place], [place] [address] Performed By: #### 5 8410-2 ####[facility] LABORATORYCLIA [id number] [address] [place] WBC (Bld) [#/Vol] 10.77 10*3/uL Normal 3.70-11.00 [facility] Comment on above: Order Comment: Speci men Type: BLOOD SPECIMENOrdering Facility: [facility] Address: [address] [place] [address] Performed By: #### 5 8410-2 ####[facility] LABORATORYCLIA [id number] [address] OF [facility] Magnesium SerPl-mCncon 11-04 Magnesium [Mass/Vol] 2.1 mg/dL Normal 1.7-2.3 [facility] Comment on above: Order Comment: Speci men Type: BLOOD SPECIMENOrdering Facility: [facility] Address: [address] [place] [address] Performed By: #### 2 4321-2, , 27702-15 ####[facility] LABORATORYCLIA [id number] [address] [place] NURSING PROGon 11-04-2021 NURSING PROG Normal [facility] Phosphate SerPl-ncon 11-04 Phosphate [Mass/Vol] 2.8 mg/dL Normal 2.7-4.8 [facility] Comment on above: Order Comment: Speci men Type: BLOOD SPECIMENOrdering Facility: [facility] Address: [address] [place] [address] Performed By: #### 2 4321-2, , 27702-15 ####[facility] LABORATORYCLIA [id number] [address] [place] XR CHEST 1V FRONTALon 2021 XR CHEST 1V FRONTAL Normal [facility] ALLIED HEALTHon 11-03-2021 ALLIED HEALTH Normal [facility] ALLIED HEALTH Normal [facility] Basic metabolic 2000 panelon 11-03-2021 Anion gap [Moles/Vol] 9 mmol/L Normal 9-18 [facility] Comment on above: Order Comment: Speci men Type: BLOOD SPECIMENOrdering Facility: [facility] Address: [address] [place] [address] Performed By: #### 2 777-1, , 85809-6 ####[facility] LABORATORYCLIA [id number] [place] [address] [place] Calcium [Mass/Vol] 8.6 mg/dL Normal 8.5-10.2 [facility] Comment on above: Order Comment: Speci men Type: BLOOD SPECIMENOrdering Facility: [facility] Address: [address] [place] [address] Performed By: #### 2 777-1, , ####[facility] LABORATORYCLIA [id number] [address] [place] Chloride [Moles/Vol] 112 mmol/L High 97-105 [facility] Comment on above: Order Comment: Speci men Type: BLOOD SPECIMENOrdering Facility: [facility] Address: [address] [place] [address] Performed By: #### 2 777-1, , ####[facility] LABORATORYCLIA [id number] [address] [place] CO2 [Moles/Vol] 24 mmol/L Normal 22-30 [facility] Comment on above: Order Comment: Speci men Type: BLOOD SPECIMENOrdering Facility: [facility] Address: [address] [place] [address] Performed By: #### 2 777-1, , ####[facility] LABORATORYCLIA [id number] [address] STATES OF [facility] Creatinine [Mass/Vol] 0.32 mg/dL Low 0.58-0.96 [facility] Comment on above: Order Comment: Speci men Type: BLOOD SPECIMENOrdering Facility: [facility] Address: [address] [place] [address] Performed By: #### 2 777-1, , 65971-9 ####[facility] LABORATORYCLIA [id number] [address] ESTIMATED GLOMERULAR FILTRATION RATE 115 mL/min/1.73m??? Normal >=60 [facility] Comment on above: Order Comment: Speci men Type: BLOOD SPECIMENOrdering Facility: [facility] Address: [address] [place] [address] Result Comment: Ameena mated Glomerular Filtration Rate [...] GFR. Performed By: #### 2 777-1, , 28802-9 ####[facility] LABORATORYCLIA [id number] [place] [address] [place] Glucose [Mass/Vol] 209 mg/dL High 74-99 [facility] Comment on above: Order Comment: Speci men Type: BLOOD SPECIMENOrdering Facility: [facility] Address: [address] [place], [place] [address] Result Comment: The [place] [employer] (ADA) provides guidance for cutoff [...] Standards of Medical Care in Diabetes 2016, [place] [employer]. Diabetes Care. 2016.39(Suppl 1). Performed By: #### 2 777-1, , 56632-4 ####[facility] LABORATORYCLIA [id number] [place] [address] [place] Potassium [Moles/Vol] 3.7 mmol/L Normal 3.7-5.1 [facility] Comment on above: Order Comment: Speci men Type: BLOOD SPECIMENOrdering Facility: [facility] Address: [address] [place] [id number] Performed By: #### 2 777-1, , 57925-8 ####[facility] LABORATORYCLIA [id number] [address] Sodium [Moles/Vol] 145 mmol/L High 136-144 [facility] Comment on above: Order Comment: Speci men Type: BLOOD SPECIMENOrdering Facility: [facility] Address: [address] [place] [address] Performed By: #### 2 777-1, 44145-1, 64079-4 ####[facility] LABORATORYCLIA [id number] [address] [facility] Urea nitrogen [Mass/Vol] 21 mg/dL Normal 7-21 [facility] Comment on above: Order Comment: Speci men Type: BLOOD SPECIMENOrdering Facility: [facility] Address: [address] [place] [address] Performed By: #### 2 777-1, , 46081-0 ####[facility]IA [id number] [address] CALCIUM IONIZED Bon 11-04-19 Calcium.ionized (BldV) [Mass/Vol] 1.15 mmol/L Normal 1.08-1.30 [facility] Comment on above: Order Comment: Speci men Type: BLOOD SPECIMENOrdering Facility: [facility] Address: [address] [place] [address] Performed By: #### I CA ####[facility] [id number] [address] Calcium.ionized adjusted to pH 7.4 (Bld) [Moles/Vol] 1.18 mmol/L Normal 1.08-1.30 [facility] Comment on above: Order Comment: Speci men Type: BLOOD SPECIMENOrdering Facility: [facility] Address: [address] [place] [address] Performed By: #### I CA ####[facility]ORATORYCLIA [id number] [address] CBC panel Auto (Bld)on 11-03 Erythrocyte distribution width (RBC) [Ratio] 18.7 % High 11.5-15.0 [facility] Comment on above: Order Comment: Speci men Type: BLOOD SPECIMENOrdering Facility: [facility] Address: [address] [place] [address] Performed By: #### 5 8410-2 ####[facility] LABORATORYCLIA [id number] [address] OF [facility] Hematocrit (Bld) [Volume fraction] 31.6 % Low 36.0-46.0 [facility] Comment on above: Order Comment: Speci men Type: BLOOD SPECIMENOrdering Facility: [facility] Address: [address] [place] [address] Performed By: #### 5 8410-2 ####[facility]ATORYCLIA [id number] [address] OF [facility] Hemoglobin (Bld) [Mass/Vol] 9.9 g/dL Low 11.5-15.5 [facility] Comment on above: Order Comment: Speci men Type: BLOOD SPECIMENOrdering Facility: [facility] Address: [address] [place] [address] Performed By: #### 5 8410-2 ####[facility] LAB[facility]ATORYCLIA [id number] [address] OF [facility] MCH (RBC) [Entitic mass] 31.6 pg Normal 26.0-34.0 [facility] Comment on above: Order Comment: Speci men Type: BLOOD SPECIMENOrdering Facility: [facility] Address: [address] [place] [address] Performed By: #### 5 8410-2 ####[facility] LABORATORYCLIA [id number] [address] [place] MCHC (RBC) [Mass/Vol] 31.3 g/dL Normal 30.5-36.0 [facility] Comment on above: Order Comment: Speci men Type: BLOOD SPECIMENOrdering Facility: [facility] Address: [address] [place] [address] Performed By: #### 5 8410-2 ####[facility] LAB[facility]ATORYCLIA [id number] [address] [place] MCV (RBC) [Entitic vol] 101.0 fL High 80.0-100.0 [facility] Comment on above: Order Comment: Speci men Type: BLOOD SPECIMENOrdering Facility: [facility] Address: [address] [place] [address] Performed By: #### 5 8410-2 ####[facility] LAB[facility]ATORYCLIA [id number] [address] [place] Nucleated RBC (Bld) [#/Vol] 0.05 10*3/uL High <0.01 [facility] Comment on above: Order Comment: Speci men Type: BLOOD SPECIMENOrdering Facility: [facility] Address: [address] [place] [address] Performed By: #### 5 8410-2 ####[facility] LAB[facility]ATORYCLIA [id number] [address] Platelet mean volume (Bld) [Entitic vol] 9.9 fL Normal 9.0-12.7 [facility] Comment on above: Order Comment: Speci men Type: BLOOD SPECIMENOrdering Facility: [facility] Address: [address] [place] [address] Performed By: #### 5 8410-2 ####[facility] LAB[facility]ATORYCLIA [id number] [address] [place] Platelets (Bld) [#/Vol] 341 10*3/uL Normal 150-400 [facility] Comment on above: Order Comment: Speci men Type: BLOOD SPECIMENOrdering Facility: [facility] Address: [address] [place] [address] Performed By: #### 5 8410-2 ####[facility] LAB[facility]ATORYCLIA [id number] [address] [place] RBC (Bld) [#/Vol] 3.13 10*6/uL Low 3.90-5.20 [facility] Comment on above: Order Comment: Speci men Type: BLOOD SPECIMENOrdering Facility: [facility] Address: [address] [place] [address] Performed By: #### 5 8410-2 ####[facility]ATORYCLIA [id number] [address] WBC (Bld) [#/Vol] 10.74 10*3/uL Normal 3.70-11.00 [facility] Comment on above: Order Comment: Speci men Type: BLOOD SPECIMENOrdering Facility: [facility] Address: [address] [place] [address] Performed By: #### 5 8410-2 ####[facility] LAB[facility]ATORYCLIA [id number] [address] BRAIN WO IVCONon 11-04-19 CT BRAIN WO IVCON Normal [facility] Magnesium SerPl-mCncon 11-03 Magnesium [Mass/Vol] 2.1 mg/dL Normal 1.7-2.3 [facility] Comment on above: Order Comment: Speci men Type: BLOOD SPECIMENOrdering Facility: [facility] Address: [address] [place] [address] Performed By: #### 2 777-1, , 43759-1 ####[facility] LAB[facility]ATORYCLIA [id number] [address] NURSING PROGon 11-03-2021 NURSING PROG Normal [facility] Phosphate SerPl-mCncon 11-03 Phosphate [Mass/Vol] 2.2 mg/dL Low 2.7-4.8 [facility] Comment on above: Order Comment: Speci men Type: BLOOD SPECIMENOrdering Facility: [facility] Address: [address] [place] [address] Performed By: #### 2 777-1, 55702-9, 85401-8 ####[facility] LABORATORYCLIA [id number] [address] XR CHEST 1V FRONTALon 2021 XR CHEST 1V FRONTAL Normal [facility] ALLIED HEALTHon 11-02-2021 ALLIED HEALTH Normal [facility] Bacteria Ur Culton Bacteria identified Cx Nom (U) ORGANISM ID: 1 10,000 -<50,000 CFU/ml Marie glabrata ORGANISM ID: 2 1,000 - <5,000 CFU/ml Marie albicans ORGANISM ID: 3 <1,000 CFU/ml Gram negative bacilli, oxidase positive Insignificant colony count. No further workup. Normal [facility] Comment on above: Performed By: #### 6 30-4 ####[facility] LABORATORYCLIA [id number] [address] STATES OF [facility] Basic metabolic 2000 panelon 11-02-2021 Anion gap [Moles/Vol] 9 mmol/L Normal 05-05 [facility] Comment on above: Order Comment: Speci men Type: BLOOD SPECIMENOrdering Facility: [facility] Address: [address] [place] [address] Performed By: #### 2 4321-2, , 2776-08 ####[facility] LAB[facility]ATORYCLIA [id number] [place] [address] [place] Calcium [Mass/Vol] 8.5 mg/dL Normal 8.5-10.2 [facility] Comment on above: Order Comment: Speci men Type: BLOOD SPECIMENOrdering Facility: [facility] Address: [address] [place] [address] Performed By: #### 2 4321-2, , 2776-08 ####[facility] LABORATORYCLIA [id number] [place] [address] [place] Chloride [Moles/Vol] 110 mmol/L High 97-105 [facility] Comment on above: Order Comment: Speci men Type: BLOOD SPECIMENOrdering Facility: [facility] Address: [address] [place] [address] Performed By: #### 2 4321-2, , 2776-08 ####[facility]CLIA [id number] [place] [address] [place] CO2 [Moles/Vol] 25 mmol/L Normal 22-30 [facility] Comment on above: Order Comment: Speci esther Type: BLOOD SPECIMENOrdering Facility: [facility] Address: [address] [place] [address] Performed By: #### 2 4321-2, , 2776-08 ####[facility] LABORATORYCLIA [id number] [place] [id number] [facility] Creatinine [Mass/Vol] 0.42 mg/dL Low 0.58-0.96 [facility] Comment on above: Order Comment: Speci men Type: BLOOD SPECIMENOrdering Facility: [facility] Address: [address] [place] [address] Performed By: #### 2 4321-2, , 2776-08 ####[facility] [id number] [address] ESTIMATED GLOMERULAR FILTRATION RATE 108 mL/min/1.73m??? Normal >=60 [facility] Comment on above: Order Comment: aLuren santana Type: BLOOD SPECIMENOrdering Facility: [facility] Address: [address] [place] [address] Result Comment: Ameena mated Glomerular Filtration Rate [...] By: #### 2 4321-2, , 2776-08 ####[facility] LABORATORYCLIA [id number] [place] [address] [place] Glucose [Mass/Vol] 217 mg/dL High 74-99 [facility] Comment on above: Order Comment: Speci men Type: BLOOD SPECIMENOrdering Facility: [facility] Address: [address] [phone] Result Comment: The [place] [employer] (ADA) provides guidance for cutoff [...] Standards of Medical Care in Diabetes 2016, [place] [employer]. Diabetes Care. 2016.39(Suppl 1). Performed By: #### 2 4321-2, , 2776-08 ####[facility] LAB[facility]ATORYCLIA [id number] [place] [address] [place] Potassium [Moles/Vol] 3.7 mmol/L Normal 3.7-5.1 [facility] Comment on above: Order Comment: Speci men Type: BLOOD SPECIMENOrdering Facility: [facility] Address: [address] [address] Performed By: #### 2 4321-2, , 2776-08 ####[facility] LABORATORYCLIA [id number] [place] [address] [place] Sodium [Moles/Vol] 144 mmol/L Normal 136-144 [facility] Comment on above: Order Comment: Speci men Type: BLOOD SPECIMENOrdering Facility: [facility] Address: [address] [place] [address] Performed By: #### 2 4321-2, , 2776-08 ####[facility] LABORATORYCLIA [id number] [place] [address] [place] Urea nitrogen [Mass/Vol] 22 mg/dL High 7-21 [facility] Comment on above: Order Comment: Speci men Type: BLOOD SPECIMENOrdering Facility: [facility] Address: [address] [address] Performed By: #### 2 4321-2, 61545-1, 2777-1 ####[facility] LABORATORYCLIA [id number] [address] CALCIUM IONIZED Bon 11-03-19 Calcium.ionized (BldV) [Mass/Vol] 1.13 mmol/L Normal 1.08-1.30 [facility] Comment on above: Order Comment: Speci men Type: BLOOD SPECIMENOrdering Facility: [facility] Address: [address] [place] [address] Performed By: #### I CA ####[facility] LABORATORYCLIA [id number] [address] Calcium.ionized adjusted to pH 7.4 (Bld) [Moles/Vol] 1.18 mmol/L Normal 1.08-1.30 [facility] Comment on above: Order Comment: Speci men Type: BLOOD SPECIMENOrdering Facility: [facility] Address: [address] [place] [address] Performed By: #### I CA ####[facility] LABORATORYCLIA [id number] [address] CASE MANAGEMon 11-02-2021 CASE MANAGEM Normal [facility] CASE MANAGEM Normal [facility] CBC panel Auto (Bld)on 11-02 Erythrocyte distribution width (RBC) [Ratio] 19.0 % High 11.5-15.0 [facility] Comment on above: Order Comment: Speci men Type: BLOOD SPECIMENOrdering Facility: [facility] Address: [address] [place] [address] Performed By: #### 5 8410-2 ####[facility] LABORATORYCLIA [id number] [address] Hematocrit (Bld) [Volume fraction] 29.9 % Low 36.0-46.0 [facility] Comment on above: Order Comment: Speci men Type: BLOOD SPECIMENOrdering Facility: [facility] Address: [address] [place] [address] Performed By: #### 5 8410-2 ####[facility] LABORATORYCLIA [id number] [address] OF [facility] Hemoglobin (Bld) [Mass/Vol] 9.4 g/dL Low 11.5-15.5 [facility] Comment on above: Order Comment: Speci men Type: BLOOD SPECIMENOrdering Facility: [facility] Address: [address] [place] [address] Performed By: #### 5 8410-2 ####[facility] LABORATORYCLIA [id number] [address] MCH (RBC) [Entitic mass] 31.9 pg Normal 26.0-34.0 [facility] Comment on above: Order Comment: Speci men Type: BLOOD SPECIMENOrdering Facility: [facility] Address: [address] [place] [address] Performed By: #### 5 8410-2 ####[facility] LAB[facility]ATORYCLIA [id number] [address] MCHC (RBC) [Mass/Vol] 31.4 g/dL Normal 30.5-36.0 [facility] Comment on above: Order Comment: Speci men Type: BLOOD SPECIMENOrdering Facility: [facility] Address: [address] [place] [address] Performed By: #### 5 8410-2 ####[facility] LABORATORYCLIA [id number] [address] STATES OF [facility] MCV (RBC) [Entitic vol] 101.4 fL High 80.0-100.0 [facility] Comment on above: Order Comment: Speci men Type: BLOOD SPECIMENOrdering Facility: [facility] Address: [address] [place] [address] Performed By: #### 5 8410-2 ####[facility] LABORATORYCLIA [id number] [address] Nucleated RBC (Bld) [#/Vol] 0.03 10*3/uL High <0.01 [facility] Comment on above: Order Comment: Speci men Type: BLOOD SPECIMENOrdering Facility: [facility] Address: [address] [place] [address] Performed By: #### 5 8410-2 ####[facility] LABORATORYCLIA [id number] [place] [address] [place] Platelet mean volume (Bld) [Entitic vol] 9.7 fL Normal 9.0-12.7 [facility] Comment on above: Order Comment: Speci men Type: BLOOD SPECIMENOrdering Facility: [facility] Address: [address] [place] [address] Performed By: #### 5 8410-2 ####[facility] LABORATORYCLIA [id number] [address] [place] Platelets (Bld) [#/Vol] 280 10*3/uL Normal 150-400 [facility] Comment on above: Order Comment: Speci men Type: BLOOD SPECIMENOrdering Facility: [facility] Address: [address] [place] [address] Performed By: #### 5 8410-2 ####[facility] LABORATORYCLIA [id number] [place] [address] [place] RBC (Bld) [#/Vol] 2.95 10*6/uL Low 3.90-5.20 [facility] Comment on above: Order Comment: Speci men Type: BLOOD SPECIMENOrdering Facility: [facility] Address: [address] [place] [address] Performed By: #### 5 8410-2 ####[facility] LABORATORYCLIA [id number] [place] [address] [place] WBC (Bld) [#/Vol] 9.55 10*3/uL Normal 3.70-11.00 [facility] Comment on above: Order Comment: Speci men Type: BLOOD SPECIMENOrdering Facility: [facility] Address: [address] [place], [place] [phone] Performed By: #### 5 8410-2 ####[facility] LABORATORYCLIA [id number] [address] [place] CONSULT PROGon 11-02-2021 CONSULT PROG Normal [facility] CONSULT PROG Normal [facility] Magnesium SerPl-mCncon 11-02 Magnesium [Mass/Vol] 2.0 mg/dL Normal 1.7-2.3 [facility] Comment on above: Order Comment: Speci men Type: BLOOD SPECIMENOrdering Facility: [facility] Address: [address] [place] [address] Performed By: #### 2 4321-2, , 2776-08 ####[facility] LAB[facility]ATORYCLIA [id number] [address] NURSING PROGon 11-02-2021 NURSING PROG Normal [facility] Phosphate SerPl-mCncon 11-02 Phosphate [Mass/Vol] 2.5 mg/dL Low 2.7-4.8 [facility] Comment on above: Order Comment: Speci men Type: BLOOD SPECIMENOrdering Facility: [facility] Address: [address] [place] [address] Performed By: #### 2 4321-2, , 2776-08 ####[facility] LABORATORYCLIA [id number] [address] [place] STAPH AUREUS PCRon 2 S. aureus and MRSA panel NADEEM+probe (Nose) Normal Negative [facility] Comment on above: Order Comment: Speci men Type: SWAB OF INTERNAL NOSEOrdering Facility: [facility] Address: [address] [place] [address] Result Comment: Nega tive for Staphylococcus aureus by PCR.Negative for MRSA by PCR Performed By: #### S APCR ####[facility] LABORATORYCLIA [id number] [address] [place] XR CHEST 1V FRONTALon 2021 XR CHEST 1V FRONTAL Normal [facility] ALLIED HEALTHon 11-01-2021 ALLIED HEALTH Normal [facility] Bacteria Spec Resp Culton Bacteria identified Respiratory culture Nom (Unsp spec) CULTURE, RESPIRATORY: Moderate Normal respiratory hyun present GRAM STAIN: Many Gram positive cocci in pairs and chains Rare Yeast Few Polymorphonuclear leukocytes Rare Epithelial cells Abnormal [facility] Comment on above: Performed By: #### 3 2355-0 ####[facility] LABORATORYCLIA [id number] [place] [address] [place] Basic metabolic 2000 panelon 11-01-2021 Anion gap [Moles/Vol] 12 mmol/L Normal 9-18 [facility] Comment on above: Order Comment: Speci men Type: BLOOD SPECIMENOrdering Facility: [facility] Address: [address] [place] [address] Performed By: #### 2 4321-2, 2776-08, ####[facility] LABORATORYCLIA [id number] [place] [address] [place] Calcium [Mass/Vol] 8.7 mg/dL Normal 8.5-10.2 [facility] Comment on above: Order Comment: Speci men Type: BLOOD SPECIMENOrdering Facility: [facility] Address: [address] [place] [address] Performed By: #### 2 4321-2, 2776-08, ####[facility] LABORATORYCLIA [id number] [place] [address] [place] Chloride [Moles/Vol] 111 mmol/L High 97-105 [facility] Comment on above: Order Comment: Speci men Type: BLOOD SPECIMENOrdering Facility: [facility] Address: [address] [place] [address] Performed By: #### 2 4321-2, 2776-08, ####[facility] LABORATORYCLIA [id number] [place] [address] [place] CO2 [Moles/Vol] 24 mmol/L Normal 22-30 [facility] Comment on above: Order Comment: Speci men Type: BLOOD SPECIMENOrdering Facility: [facility] Address: [address] [place] [address] Performed By: #### 2 4321-2, 2776-08, ####[facility] LABORATORYCLIA [id number] [place] [address] [place] Creatinine [Mass/Vol] 0.40 mg/dL Low 0.58-0.96 [facility] Comment on above: Order Comment: Speci men Type: BLOOD SPECIMENOrdering Facility: [facility] Address: [address] [place] [address] Performed By: #### 2 4321-2, 2776-08, ####[facility]CL[facility] [id number] [address] STATES OF [facility] ESTIMATED GLOMERULAR FILTRATION RATE 109 mL/min/1.73m??? Normal >=60 [facility] Comment on above: Order Comment: Speci men Type: BLOOD SPECIMENOrdering Facility: [facility] Address: [address] [place] [address] Result Comment: Ameena mated Glomerular Filtration Rate [...] GFR. Performed By: #### 2 4321-2, 2776-08, ####[facility] LABORATORYCLIA [id number] [place] [address] [place] Glucose [Mass/Vol] 207 mg/dL High 74-99 [facility] Comment on above: Order Comment: Speci men Type: BLOOD SPECIMENOrdering Facility: [facility] Address: [address] [place], [place] [address] Result Comment: The [place] [employer] (ADA) provides guidance for cutoff [...] Standards of Medical Care in Diabetes 2016, [place] [employer]. Diabetes Care. 2016.39(Suppl 1). Performed By: #### 2 4321-2, 2776-08, ####[facility] LABORATORYCLIA [id number] [place] [address] [place] Potassium [Moles/Vol] 4.0 mmol/L Normal 3.7-5.1 [facility] Comment on above: Order Comment: Speci men Type: BLOOD SPECIMENOrdering Facility: [facility] Address: [address] [place] [address] Performed By: #### 2 4321-2, 2776-08, ####[facility] LABORATORYCLIA [id number] [place] [address] [place] Sodium [Moles/Vol] 147 mmol/L High 136-144 [facility] Comment on above: Order Comment: Speci men Type: BLOOD SPECIMENOrdering Facility: [facility] Address: [address] [place] [address] Performed By: #### 2 4321-2, 2776-08, ####[facility] LABORATORYCLIA [id number] [place] [address] [place] Urea nitrogen [Mass/Vol] 20 mg/dL Normal 7-21 [facility] Comment on above: Order Comment: Speci men Type: BLOOD SPECIMENOrdering Facility: [facility] Address: [address] [address] Performed By: #### 2 4321-2, 2776-08, ####[facility] LABORATORYCLIA [id number] [address] [place] CALCIUM IONIZED Bon 11-02-19 Calcium.ionized (BldV) [Mass/Vol] 1.19 mmol/L Normal 1.08-1.30 [facility] Comment on above: Order Comment: Speci men Type: BLOOD SPECIMENOrdering Facility: [facility] Address: [address] [place] [address] Performed By: #### I CA ####[facility] LABORATORYCLIA [id number] [address] STATES [facility] Calcium.ionized adjusted to pH 7.4 (Bld) [Moles/Vol] 1.20 mmol/L Normal 1.08-1.30 [facility] Comment on above: Order Comment: Speci men Type: BLOOD SPECIMENOrdering Facility: [facility] Address: [address] [place] [address] Performed By: #### I CA ####[facility] LABORATORYCLIA [id number] [address] OF [facility] CASE MANAGEMon 11-01-2021 CASE MANAGEM Normal [facility] CBC panel Auto (Bld)on 11-01 Erythrocyte distribution width (RBC) [Ratio] 19.7 % High 11.5-15.0 [facility] Comment on above: Order Comment: Speci men Type: BLOOD SPECIMENOrdering Facility: [facility] Address: [address] [place] [address] Performed By: #### 5 8410-2 ####[facility] LABORATORYCLIA [id number] [address] Hematocrit (Bld) [Volume fraction] 29.9 % Low 36.0-46.0 [facility] Comment on above: Order Comment: Speci men Type: BLOOD SPECIMENOrdering Facility: [facility] Address: [address] [place] [address] Performed By: #### 5 8410-2 ####[facility] LABORATORYCLIA [id number] [address] Hemoglobin (Bld) [Mass/Vol] 9.3 g/dL Low 11.5-15.5 [facility] Comment on above: Order Comment: Speci men Type: BLOOD SPECIMENOrdering Facility: [facility] Address: [address] [place] [address] Performed By: #### 5 8410-2 ####[facility] LABORATORYCLIA [id number] [address] MCH (RBC) [Entitic mass] 31.2 pg Normal 26.0-34.0 [facility] Comment on above: Order Comment: Speci men Type: BLOOD SPECIMENOrdering Facility: [facility] Address: [address] [place] [address] Performed By: #### 5 8410-2 ####[facility] LABORATORYCLIA [id number] [address] MCHC (RBC) [Mass/Vol] 31.1 g/dL Normal 30.5-36.0 [facility] Comment on above: Order Comment: Speci men Type: BLOOD SPECIMENOrdering Facility: [facility] Address: [address] [place] [address] Performed By: #### 5 8410-2 ####[facility] LABORATORYCLIA [id number] MCV (RBC) [Entitic vol] 100.3 fL High 80.0-100.0 [facility] Comment on above: Order Comment: Speci men Type: BLOOD SPECIMENOrdering Facility: [facility] [facility] Address: [address] [place] [address] Performed By: #### 5 8410-2 ####[facility] LABORATORYCLIA [id number] [address] Nucleated RBC (Bld) [#/Vol] 0.03 10*3/uL High <0.01 [facility] Comment on above: Order Comment: Speci men Type: BLOOD SPECIMENOrdering Facility: [facility] Address: [address] Performed By: #### 5 8410-2 ####[facility] LABORATORYCLIA [id number] [address] Platelet mean volume (Bld) [Entitic vol] 9.8 fL Normal 9.0-12.7 [facility] Comment on above: Order Comment: Speci men Type: BLOOD SPECIMENOrdering Facility: [facility] Address: [address] [place] [address] Performed By: #### 5 8410-2 ####[facility] LABORATORYCLIA [id number] [address] OF [facility] Platelets (Bld) [#/Vol] 239 10*3/uL Normal 150-400 [facility] Comment on above: Order Comment: Speci men Type: BLOOD SPECIMENOrdering Facility: [facility] Address: [address] [place] [address] Performed By: #### 5 8410-2 ####[facility] LABORATORYCLIA [id number] [address] [place] RBC (Bld) [#/Vol] 2.98 10*6/uL Low 3.90-5.20 [facility] Comment on above: Order Comment: Speci men Type: BLOOD SPECIMENOrdering Facility: [facility] Address: [address] [place] [address] Performed By: #### 5 8410-2 ####[facility] LABORATORYCLIA [id number] [address] [place] WBC (Bld) [#/Vol] 10.01 10*3/uL Normal 3.70-11.00 [facility] Comment on above: Order Comment: Speci men Type: BLOOD SPECIMENOrdering Facility: [facility] Address: [address] [place] [address] Performed By: #### 5 8410-2 ####[facility] LABORATORYCLIA [id number] [address] [place] CONSULT PROGon 11-01-2021 CONSULT PROG Normal [facility] Magnesium SerPl-mCncon 11-01 Magnesium [Mass/Vol] 2.0 mg/dL Normal 1.7-2.3 [facility] Comment on above: Order Comment: Speci men Type: BLOOD SPECIMENOrdering Facility: [facility] Address: [address] Performed By: #### 2 4321-2, 2776-, ####[facility] LABORATORYCLIA [id number] [address] [place] NURSING PROGon 11-01-2021 NURSING PROG Normal [facility] NURSING PROG Normal [facility] NURSING PROG Normal [facility] NUTRITIONon 11-01-2021 NUTRITION Normal [facility] Phosphate SerPl-mCncon 11-01 Phosphate [Mass/Vol] 3.3 mg/dL Normal 2.7-4.8 [facility] Comment on above: Order Comment: Speci men Type: BLOOD SPECIMENOrdering Facility: [facility] Address: [address] [place] [address] Performed By: #### 2 4321-2, 2776-, ####[facility] LABORATORYCLIA [id number] [address] [place] Urinalysis complete panel (U )on 11-01-2021 Bacteria LM.HPF (Urine sed) [#/Area] Many Abnormal None Seen [facility] Comment on above: Order Comment: Speci men Type: URINE SPECIMENOrdering Facility: [facility] Address: [address] [place], [place] [address] Performed By: #### 2 4356-8 ####[facility] LABORATORYCLIA [id number] [place] [address] [place] Bilirubin Ql (U) Negative Normal Negative [facility] Comment on above: Order Comment: Speci men Type: URINE SPECIMENOrdering Facility: [facility] Address: [address] [place] [address] Performed By: #### 2 4356-8 ####[facility] LABORATORYCLIA [id number] [address] Clarity (Unsp spec) Turbid Abnormal Clear [facility] Comment on above: Order Comment: Speci men Type: URINE SPECIMENOrdering Facility: [facility] Address: [address] [place] [address] Performed By: #### 2 4356-8 ####[facility] LABORATORYCLIA [id number] [address] Color (U) Dark Brown Abnormal yellow [facility] Comment on above: Order Comment: Speci men Type: URINE SPECIMENOrdering Facility: [facility] Address: [address] [place] [address] Performed By: #### 2 4356-8 ####[facility] LABORATORYCLIA [id number] [address] Epithelial cells LM.HPF (Urine sed) [#/Area] Many Normal [facility] Comment on above: Order Comment: Speci men Type: URINE SPECIMENOrdering Facility: [facility] Address: [address] [place] [address] Performed By: #### 2 4356-8 ####[facility] LABORATORYCLIA [id number] [address] Glucose Test strip (U) [Mass/Vol] 4+ Abnormal Negative [facility] Comment on above: Order Comment: Speci men Type: URINE SPECIMENOrdering Facility: [facility] Address: [address] [place] [address] Performed By: #### 2 4356-8 ####[facility] LABORATORYCLIA [id number] [address] Hemoglobin Ql (U) 3+ Abnormal Negative [facility] Comment on above: Order Comment: Speci men Type: URINE SPECIMENOrdering Facility: [facility] Address: [address] [place] [address] Performed By: #### 2 4356-8 ####[facility] LABORATORYCLIA [id number] [address] Ketones Ql (U) Negative Normal Negative [facility] Comment on above: Order Comment: Speci men Type: URINE SPECIMENOrdering Facility: [facility] Address: [address] [place] [address] Performed By: #### 2 4356-8 ####[facility] LABORATORYCLIA [id number] [address] Leukocyte esterase Test strip Ql (U) 500 Nabeel/mL Abnormal Negative [facility] Comment on above: Order Comment: Speci men Type: URINE SPECIMENOrdering Facility: [facility] Address: [address] [place] [address] Performed By: #### 2 4356-8 ####[facility] LABORATORYCLIA [id number] [address] STATES [facility] Nitrite Ql (U) Negative Normal Negative [facility] Comment on above: Order Comment: Speci men Type: URINE SPECIMENOrdering Facility: [facility] Address: [address] [place] [address] Performed By: #### 2 4356-8 ####[facility] LABORATORYCLIA [id number] [address] [place] pH (U) 6.0 [pH] Normal 5.0-8.0 [facility] Comment on above: Order Comment: Speci men Type: URINE SPECIMENOrdering Facility: [facility] Address: [facility] [place] [address] Performed By: #### 2 4356-8 ####[facility] LABORATORYCLIA [id number] [address] Protein (U) [Mass/Vol] 2+ Abnormal Negative [facility] Comment on above: Order Comment: Speci men Type: URINE SPECIMENOrdering Facility: [facility] Address: [address] [place] [address] Performed By: #### 2 4356-8 ####[facility] LABORATORYCLIA [id number] [address] RBC LM.HPF (Urine sed) [#/Area] /[HPF] Abnormal 0-3 /HPF [facility] Comment on above: Order Comment: Speci men Type: URINE SPECIMENOrdering Facility: [facility] Address: [address] [place] [address] Performed By: #### 2 4356-8 ####[facility] LABORATORYCLIA [id number] [address] Specific gravity (U) [Rel density] 1.041 High 1.005-1.030 [facility] Comment on above: Order Comment: Speci men Type: URINE SPECIMENOrdering Facility: [facility] Address: [address] [place] [address] Performed By: #### 2 4356-8 ####[facility] LABORATORYCLIA [id number] [address] Urobilinogen Ql (U) Normal Normal Negative [facility] Comment on above: Order Comment: Speci men Type: URINE SPECIMENOrdering Facility: [facility] Address: [address] [place] [address] Performed By: #### 2 4356-8 ####[facility] LABORATORYCLIA [id number] [address] WBC LM.HPF (Urine sed) [#/Area] /[HPF] Abnormal 0-5 /HPF [facility] Comment on above: Order Comment: Speci men Type: URINE SPECIMENOrdering Facility: [facility] Address: [address] [place] [address] Performed By: #### 2 4356-8 ####[facility] LABORATORYCLIA [id number] [address] Yeast.budding LM.HPF (Urine sed) [#/Area] Many Abnormal None Seen [facility] Comment on above: Order Comment: Speci men Type: URINE SPECIMENOrdering Facility: [facility] Address: [address] [place] [address] Performed By: #### 2 4356-8 ####[facility] LABORATORYCLIA [id number] [place] [address] [place] XR CHEST 1V FRONTALon 2021 XR CHEST 1V FRONTAL Normal [facility] ALLIED HEALTHon 10-31-2021 ALLIED HEALTH Normal [facility] Basic metabolic 2000 panelon 10-31-2021 Anion gap [Moles/Vol] 9 mmol/L Normal 9-18 [facility] Comment on above: Order Comment: Speci men Type: BLOOD SPECIMENOrdering Facility: [facility] Address: [address] [place] [address] Performed By: #### 1 9123-9, 2777-1, 86319-2 ####[facility] LABORATORYCLIA [id number] [place] [address] [place] Calcium [Mass/Vol] 8.8 mg/dL Normal 8.5-10.2 [facility] Comment on above: Order Comment: Speci men Type: BLOOD SPECIMENOrdering Facility: [facility] Address: [address] [place] [address] Performed By: #### 1 9123-9, 2777-1, 19400-9 ####[facility] LABORATORYCLIA [id number] [place] [address] [place] Chloride [Moles/Vol] 112 mmol/L High 97-105 [facility] Comment on above: Order Comment: Speci men Type: BLOOD SPECIMENOrdering Facility: [facility] Address: [address] [place] [address] Performed By: #### 1 9123-9, 2777-1, 87007-4 ####[facility] LABORATORYCLIA [id number] [place] [address] [place] CO2 [Moles/Vol] 25 mmol/L Normal 22-30 [facility] Comment on above: Order Comment: Speci men Type: BLOOD SPECIMENOrdering Facility: [facility] Address: [address] [place] [address] Performed By: #### 1 9123-9, 2777-, 50874-7 ####[facility]CL[facility] [id number] [place] [address] [place] Creatinine [Mass/Vol] 0.40 mg/dL Low 0.58-0.96 [facility] Comment on above: Order Comment: Speckatie men Type: BLOOD SPECIMENOrdering Facility: [facility] Address: [address] [place] [address] Performed By: #### 1 9123-9, 2777-, 72907-6 ####[facility] [id number] [address] [place] ESTIMATED GLOMERULAR FILTRATION RATE 109 mL/min/1.73m??? Normal >=60 [facility] Comment on above: Order Comment: Speckatie men Type: BLOOD SPECIMENOrdering Facility: [facility] Address: [address] [place] [address] Result Comment: Ameena mated Glomerular Filtration Rate [...] GFR. Performed By: #### 1 9123-9, 2777-, 30473-1 ####[facility] LABORATORYIA [id number] [place] [address] [place] Glucose [Mass/Vol] 178 mg/dL High 74-99 [facility] Comment on above: Order Comment: Lauren santana Type: BLOOD SPECIMENOrdering Facility: [facility] Address: [address] [place] [address] Result Comment: The [place] [employer] (ADA) provides guidance for cutoff [...] Standards of Medical Care in Diabetes 2016, [place] [employer]. Diabetes Care. 2016.39(Suppl 1). Performed By: #### 1 9123-9, 2777-, 28921-3 ####[facility] LABORATORYCLIA [id number] [place] [address] [place] Potassium [Moles/Vol] 3.8 mmol/L Normal 3.7-5.1 [facility] Comment on above: Order Comment: Lauren santana Type: BLOOD SPECIMENOrdering Facility: [facility] Address: [address] [place] [address] Performed By: #### 1 9123-9, 27702-15, 09604-8 ####[facility]CLIA [id number] [place] [address] [place] Sodium [Moles/Vol] 146 mmol/L High 136-144 [facility] Comment on above: Order Comment: Lauren santana Type: BLOOD SPECIMENOrdering Facility: [facility] Address: [address] [place] [address] Performed By: #### 1 9123-9, 27702-15, 16518-9 ####[facility] LABORATORYCLIA [id number] [place] [address] [place] Urea nitrogen [Mass/Vol] 19 mg/dL Normal 7-21 [facility] Comment on above: Order Comment: Lauren santana Type: BLOOD SPECIMENOrdering Facility: [facility] Address: [address] [place] [address] Performed By: #### 1 9123-9, 2777, 31339-8 ####[facility] LABORATORYCLIA [id number] [address] CALCIUM IONIZED Bon 11-01-19 Calcium.ionized (BldV) [Mass/Vol] 1.18 mmol/L Normal 1.08-1.30 [facility] Comment on above: Order Comment: Speci men Type: BLOOD SPECIMENOrdering Facility: [facility] Address: [address] [place] [address] Performed By: #### I CA ####[facility] LABORATORYCLIA [id number] [address] Calcium.ionized adjusted to pH 7.4 (Bld) [Moles/Vol] 1.23 mmol/L Normal 1.08-1.30 [facility] Comment on above: Order Comment: Speci men Type: BLOOD SPECIMENOrdering Facility: [facility] Address: [address] [place] [address] Performed By: #### I CA ####[facility] LABORATORYCLIA [id number] [address] CASE MANAGEMon 10-31-2021 CASE MANAGEM Normal [facility] CBC panel Auto (Bld)on 10-31 Erythrocyte distribution width (RBC) [Ratio] 19.9 % High 11.5-15.0 [facility] Comment on above: Order Comment: Speci men Type: BLOOD SPECIMENOrdering Facility: [facility] Address: [address] [place] [address] Performed By: #### 5 8410-2 ####[facility] LABORATORYCLIA [id number] [address] STATES [facility] Hematocrit (Bld) [Volume fraction] 27.3 % Low 36.0-46.0 [facility] Comment on above: Order Comment: Speci men Type: BLOOD SPECIMENOrdering Facility: [facility] Address: [address] [place] [address] Performed By: #### 5 8410-2 ####[facility] LABORATORYCLIA [id number] [address] Hemoglobin (Bld) [Mass/Vol] 8.8 g/dL Low 11.5-15.5 [facility] Comment on above: Order Comment: Speci men Type: BLOOD SPECIMENOrdering Facility: [facility] Address: [address] [place] [address] Performed By: #### 5 8410-2 ####[facility] LABORATORYCLIA [id number] [address] MCH (RBC) [Entitic mass] 31.7 pg Normal 26.0-34.0 [facility] Comment on above: Order Comment: Speci men Type: BLOOD SPECIMENOrdering Facility: [facility] Address: [address] [place] [address] Performed By: #### 5 8410-2 ####[facility] LABORATORYCLIA [id number] [address] OF [facility] MCHC (RBC) [Mass/Vol] 32.2 g/dL Normal 30.5-36.0 [facility] Comment on above: Order Comment: Speci men Type: BLOOD SPECIMENOrdering Facility: [facility] Address: [address] [place] [address] Performed By: #### 5 8410-2 ####[facility] LABORATORYCLIA [id number] [address] MCV (RBC) [Entitic vol] 98.2 fL Normal 80.0-100.0 [facility] Comment on above: Order Comment: Speci men Type: BLOOD SPECIMENOrdering Facility: [facility] Address: [address] [place] [address] Performed By: #### 5 8410-2 ####[facility] LABORATORYCLIA [id number] [address] Nucleated RBC (Bld) [#/Vol] 10*3/uL Normal <0.01 [facility] Comment on above: Order Comment: Speci men Type: BLOOD SPECIMENOrdering Facility: [facility] Address: [address] [place] [address] Performed By: #### 5 8410-2 ####[facility] LABORATORYCLIA [id number] [address] STATES [facility] Platelet mean volume (Bld) [Entitic vol] 9.7 fL Normal 9.0-12.7 [facility] Comment on above: Order Comment: Speci men Type: BLOOD SPECIMENOrdering Facility: [facility] Address: [address] [place] [address] Performed By: #### 5 8410-2 ####[facility] LABORATORYCLIA [id number] [address] [place] Platelets (Bld) [#/Vol] 206 10*3/uL Normal 150-400 [facility] Comment on above: Order Comment: Speci men Type: BLOOD SPECIMENOrdering Facility: [facility] Address: [address] [place] [address] Performed By: #### 5 8410-2 ####[facility] LABORATORYCLIA [id number] [place] [address] [place] RBC (Bld) [#/Vol] 2.78 10*6/uL Low 3.90-5.20 [facility] Comment on above: Order Comment: Speci men Type: BLOOD SPECIMENOrdering Facility: [facility] Address: [address] [place] [address] Performed By: #### 5 8410-2 ####[facility] LABORATORYCLIA [id number] [place] [address] [place] WBC (Bld) [#/Vol] 8.28 10*3/uL Normal 3.70-11.00 [facility] Comment on above: Order Comment: Speci men Type: BLOOD SPECIMENOrdering Facility: [facility] Address: [address] [place] [address] Performed By: #### 5 8410-2 ####[facility] LABORATORYCLIA [id number] [address] [place] CONSULT PROGon 10-31-2021 CONSULT PROG Normal [facility] Magnesium SerPl-mCncon 10-31 Magnesium [Mass/Vol] 2.1 mg/dL Normal 1.7-2.3 [facility] Comment on above: Order Comment: Speci men Type: BLOOD SPECIMENOrdering Facility: [facility] Address: [address] [place] [address] Performed By: #### 1 9123-9, 2777-1, 54250-1 ####[facility] LABORATORYCLIA [id number] [place] [address] [place] NURSING PROGon 10-31-2021 NURSING PROG Normal [facility] Osmolality SerPlon Osmolality [Osmolality] 307 mosm/kg High 275-300 [facility] Comment on above: Order Comment: Speci men Type: BLOOD SPECIMENOrdering Facility: [facility] Address: [address] [place] [address] Performed By: #### 2 692-2 ####[facility]CLIA [id number] [place] [address] [place] Osmolality Uron 10-31-2021 Osmolality (U) [Osmolality] 1010 mosm/kg Normal 50-1,200 [facility] Comment on above: Order Comment: Speci men Type: URINE SPECIMENOrdering Facility: [facility] Address: [address] [place] [address] Performed By: #### 2 695-5, 5811-5 ####[facility] LABORATORYCLIA [id number] [place] [address] [place] Phosphate SerPl-mCncon 10-31 Phosphate [Mass/Vol] 3.3 mg/dL Normal 2.7-4.8 [facility] Comment on above: Order Comment: Speci men Type: BLOOD SPECIMENOrdering Facility: [facility] Address: [address] [place] [address] Performed By: #### 1 9123-9, 2777-1, 30593-8 ####[facility] LABORATORYCLIA [id number] [place] [address] [place] Sodium ?Tm Ur-sCncon 022 Sodium Unsp time (U) [Moles/Vol] 83 mmol/L Normal 14-216 [facility] Comment on above: Order Comment: Speci men Type: URINE SPECIMENOrdering Facility: [facility] Address: [address] [place] [address] Performed By: #### 3 5678-2 ####[facility] LABORATORYCLIA [id number] [address] [place] Specific gravity Test strip (U) [Rel density]on 10-31-2021 Specific gravity (U) [Rel density] >1.035 High 1.006-1.029 [facility] Comment on above: Order Comment: Speci men Type: URINE SPECIMENOrdering Facility: [facility] Address: [address] [place] [address] Performed By: #### 2 695-5, 5811-5 ####[facility] LABORATORYCLIA [id number] [place] [address] [place] XR CHEST 1V FRONTALon 2021 XR CHEST 1V FRONTAL Normal [facility] ALLIED HEALTHon 10-30-2021 ALLIED HEALTH Normal [facility] Basic metabolic 2000 panelon 10-30-2021 Anion gap [Moles/Vol] 8 mmol/L Low 9-18 [facility] Comment on above: Order Comment: Speci men Type: BLOOD SPECIMENOrdering Facility: [facility] Address: [address] [place] [address] Performed By: #### 2 777-1, 31530-8, 23990-0 ####[facility] LABORATORYCLIA [id number] [place] [address] [place] Calcium [Mass/Vol] 8.4 mg/dL Low 8.5-10.2 [facility] Comment on above: Order Comment: Speci men Type: BLOOD SPECIMENOrdering Facility: [facility] Address: [address] [place] [address] Performed By: #### 2 777-1, 77986-1, ####[facility] LABORATORYCLIA [id number] [place] [address] [place] Chloride [Moles/Vol] 112 mmol/L High 97-105 [facility] Comment on above: Order Comment: Speci men Type: BLOOD SPECIMENOrdering Facility: [facility] Address: [address] [place] [address] Performed By: #### 2 777-1, 55340-2, ####[facility] LABORATORYCLIA [id number] [address] [place] CO2 [Moles/Vol] 25 mmol/L Normal 22-30 [facility] Comment on above: Order Comment: Speci men Type: BLOOD SPECIMENOrdering Facility: [facility] Address: [address] [place] [address] Performed By: #### 2 777-1, , ####[facility] LABORATORYCLIA [id number] [address] OF [facility] Creatinine [Mass/Vol] 0.43 mg/dL Low 0.58-0.96 [facility] Comment on above: Order Comment: Speci men Type: BLOOD SPECIMENOrdering Facility: [facility] Address: [address] [place] [address] Performed By: #### 2 777-1, , ####[facility] LABORATORYCLIA [id number] [address] ESTIMATED GLOMERULAR FILTRATION RATE 107 mL/min/1.73m??? Normal >=60 [facility] Comment on above: Order Comment: Speci men Type: BLOOD SPECIMENOrdering Facility: [facility] Address: [address] [place] [address] Result Comment: Ameena mated Glomerular Filtration Rate [...] actual GFR. Performed By: #### 2 777-1, 77327-2, ####[facility] LABORATORYCLIA [id number] [place] [address] [place] Glucose [Mass/Vol] 180 mg/dL High 74-99 [facility] Comment on above: Order Comment: Lauren santana Type: BLOOD SPECIMENOrdering Facility: [facility] Address: [address] [place] [address] Result Comment: The [place] [employer] (ADA) provides guidance for cutoff [...] Standards of Medical Care in Diabetes 2016, [place] [employer]. Diabetes Care. 2016.39(Suppl 1). Performed By: #### 2 777-1, , ####[facility] LABORATORYCLIA [id number] [place] [address] [place] Potassium [Moles/Vol] 3.7 mmol/L Normal 3.7-5.1 [facility] Comment on above: Order Comment: Lauren santana Type: BLOOD SPECIMENOrdering Facility: [facility] Address: [address] [place] [address] Performed By: #### 2 777-1, , ####[facility] LABORATORYCLIA [id number] [place] [address] [place] Sodium [Moles/Vol] 145 mmol/L High 136-144 [facility] Comment on above: Order Comment: Speci men Type: BLOOD SPECIMENOrdering Facility: [facility] Address: [address] [place] [address] Performed By: #### 2 777-1, 54832-4, 78853-3 ####[facility] LABORATORYCLIA [id number] [address] STATES OF [facility] Urea nitrogen [Mass/Vol] 15 mg/dL Normal 7-21 [facility] Comment on above: Order Comment: Speci men Type: BLOOD SPECIMENOrdering Facility: [facility] Address: [address] [place] [address] Performed By: #### 2 777-1, 86758-9, 09487-9 ####[facility] LABORATORYCLIA [id number] [address] STATES OF [facility] CALCIUM IONIZED Bon 10-31-19 Calcium.ionized (BldV) [Mass/Vol] 1.18 mmol/L Normal 1.08-1.30 [facility] Comment on above: Order Comment: Speci men Type: BLOOD SPECIMENOrdering Facility: [facility] Address: [address] [place] [address] Performed By: #### I CA ####[facility] LABORATORYCLIA [id number] [address] Calcium.ionized adjusted to pH 7.4 (Bld) [Moles/Vol] 1.17 mmol/L Normal 1.08-1.30 [facility] Comment on above: Order Comment: Speci men Type: BLOOD SPECIMENOrdering Facility: [facility] Address: [address] [place] [address] Performed By: #### I CA ####[facility] LABORATORYCLIA [id number] [address] [place] CASE MANAGEMon 10-30-2021 CASE MANAGEM Normal [facility] CBC panel Auto (Bld)on 10-30 Erythrocyte distribution width (RBC) [Ratio] 20.3 % High 11.5-15.0 [facility] Comment on above: Order Comment: Speci men Type: BLOOD SPECIMENOrdering Facility: [facility] Address: [address] [place] [address] Performed By: #### 5 8410-2 ####[facility] LABORATORYCLIA [id number] [address] OF [facility] Hematocrit (Bld) [Volume fraction] 29.6 % Low 36.0-46.0 [facility] Comment on above: Order Comment: Speci men Type: BLOOD SPECIMENOrdering Facility: [facility] Address: [address] [place] [address] Performed By: #### 5 8410-2 ####[facility] LABORATORYCLIA [id number] [address] OF [facility] Hemoglobin (Bld) [Mass/Vol] 9.4 g/dL Low 11.5-15.5 [facility] Comment on above: Order Comment: Speci men Type: BLOOD SPECIMENOrdering Facility: [facility] Address: [address] [place] [address] Performed By: #### 5 8410-2 ####[facility] LABORATORYCLIA [id number] [address] OF [facility] MCH (RBC) [Entitic mass] 31.4 pg Normal 26.0-34.0 [facility] Comment on above: Order Comment: Speci men Type: BLOOD SPECIMENOrdering Facility: [facility] Address: [address] [place] [address] Performed By: #### 5 8410-2 ####[facility] LABORATORYCLIA [id number] [address] [place] MCHC (RBC) [Mass/Vol] 31.8 g/dL Normal 30.5-36.0 [facility] Comment on above: Order Comment: Speci men Type: BLOOD SPECIMENOrdering Facility: [facility] Address: [address] [place] [address] Performed By: #### 5 8410-2 ####[facility] LABORATORYCLIA [id number] [address] OF [facility] MCV (RBC) [Entitic vol] 99.0 fL Normal 80.0-100.0 [facility] Comment on above: Order Comment: Speci men Type: BLOOD SPECIMENOrdering Facility: [facility] Address: [address] [place] [address] Performed By: #### 5 8410-2 ####[facility] LABORATORYCLIA [id number] [address] Nucleated RBC (Bld) [#/Vol] 10*3/uL Normal <0.01 [facility] Comment on above: Order Comment: Speci men Type: BLOOD SPECIMENOrdering Facility: [facility] Address: [address] [place] [address] Performed By: #### 5 8410-2 ####[facility] LABORATORYCLIA [id number] [address] Platelet mean volume (Bld) [Entitic vol] 9.6 fL Normal 9.0-12.7 [facility] Comment on above: Order Comment: Speci men Type: BLOOD SPECIMENOrdering Facility: [facility] Address: [address] [place] [address] Performed By: #### 5 8410-2 ####[facility] LABORATORYCLIA [id number] [address] Platelets (Bld) [#/Vol] 206 10*3/uL Normal 150-400 [facility] Comment on above: Order Comment: Speci men Type: BLOOD SPECIMENOrdering Facility: [facility] Address: [address] [place] [address] Performed By: #### 5 8410-2 ####[facility] LABORATORYCLIA [id number] [address] RBC (Bld) [#/Vol] 2.99 10*6/uL Low 3.90-5.20 [facility] Comment on above: Order Comment: Speci men Type: BLOOD SPECIMENOrdering Facility: [facility] Address: [address] [place] [address] Performed By: #### 5 8410-2 ####[facility] LABORATORYCLIA [id number] [address] WBC (Bld) [#/Vol] 8.78 10*3/uL Normal 3.70-11.00 [facility] Comment on above: Order Comment: Speci men Type: BLOOD SPECIMENOrdering Facility: [facility] Address: [address] [place] [address] Performed By: #### 5 8410-2 ####[facility] LABORATORYCLIA [id number] [address] OF [facility] CONSULT PROGon 10-30-2021 CONSULT PROG Normal [facility] CT BRAIN WO IVCONon 10-31-[address] BRAIN WO IVCON Normal [facility] Magnesium SerPl-mCncon 10-30 Magnesium [Mass/Vol] 2.1 mg/dL Normal 1.7-2.3 [facility] Comment on above: Order Comment: Speci men Type: BLOOD SPECIMENOrdering Facility: [facility] Address: [address] [place] [address] Performed By: #### 2 777-1, , ####[facility] LABORATORYCLIA [id number] [address] NURSING PROGon 10-30-2021 NURSING PROG Normal [facility] NURSING PROG Normal [facility] NURSING PROG Normal [facility] NUTRITIONon 10-30-2021 NUTRITION Normal [facility] Phosphate SerPl-mCncon 10-30 Phosphate [Mass/Vol] 2.5 mg/dL Low 2.7-4.8 [facility] Comment on above: Order Comment: Speci men Type: BLOOD SPECIMENOrdering Facility: [facility] Address: [address] [place] [address] Performed By: #### 2 777-1, 80907-9, ####[facility] LABORATORYCLIA [id number] [place] [address] [place] XR CHEST 1V FRONTALon 2021 XR CHEST 1V FRONTAL Normal [facility] ALLIED HEALTHon 10-29-2021 ALLIED HEALTH Normal [facility] ALLIED HEALTH Normal [facility] ARTERIAL BLOOD GASESon 10-29 BASE DEFICIT, ARTERIAL -2 mmol/L Normal -2-0 [facility] Comment on above: Order Comment: Speci men Type: ARTERIAL BLOOD SPECIMENOrdering Facility: [facility] Address: [address] [place] [address] Performed By: #### A LLBG ####[facility] LABORATORYCLIA [id number] [address] STATES [facility] Body temperature 97.7 [degF] Normal [facility] Comment on above: Order Comment: Speci men Type: ARTERIAL BLOOD SPECIMENOrdering Facility: [facility] Address: [address] [place] [address] Performed By: #### A LLBG ####[facility] LABORATORYCLIA [id number] [place] [address] [place] CALCIUM IONIZED, PH CORRECTED 1.11 mmol/L Normal 1.08-1.30 [facility] Comment on above: Order Comment: Speci men Type: ARTERIAL BLOOD SPECIMENOrdering Facility: [facility] Address: [address] [place] [address] Performed By: #### A LLBG ####[facility] LABORATORYCLIA [id number] [place] [address] [place] Calcium.ionized (BldV) [Mass/Vol] 1.11 mmol/L Normal 1.08-1.30 [facility] Comment on above: Order Comment: Speci men Type: ARTERIAL BLOOD SPECIMENOrdering Facility: [facility] Address: [address] [place] [address] Performed By: #### A LLBG ####[facility] LABORATORYCLIA [id number] [place] [address] [place] Carboxyhemoglobin (BldA) [Mass fraction] 1.4 % Normal 0.0-2.0 [facility] Comment on above: Order Comment: Speci men Type: ARTERIAL BLOOD SPECIMENOrdering Facility: [facility] Address: [address] [place] [address] Result Comment: Carb oxyhemoglobin Reference Range for Smokers: 2.0-8.0% Performed By: #### A LLBG ####[facility]ORATORYCLIA [id number] [address] CO2 (Bld) [Partial pressure] 35 mm Hg Low 36-46 [facility] Comment on above: Order Comment: Speci men Type: ARTERIAL BLOOD SPECIMENOrdering Facility: [facility] Address: [address] [place] [address] Performed By: #### A LLBG ####[facility] LABORATORYCLIA [id number] [address] OF [place] CO2 [Moles/Vol] 20 mmol/L Low 22-28 [facility] Comment on above: Order Comment: Speci men Type: ARTERIAL BLOOD SPECIMENOrdering Facility: [facility] Address: [address] [place] [address] Performed By: #### A LLBG ####[facility] LABORATORYCLIA [id number] [address] OF [place] CO2 adjusted to patient's actual temperature (Bld) [Partial pressure] 34 mmHg Low 36-46 [facility] Comment on above: Order Comment: Speci men Type: ARTERIAL BLOOD SPECIMENOrdering Facility: [facility] Address: [address] [place] [address] Performed By: #### A LLBG ####[facility]ORATORYCLIA [id number] [address] [place] Glucose [Mass/Vol] 157 mg/dL High 60-105 [facility] Comment on above: Order Comment: Speci men Type: ARTERIAL BLOOD SPECIMENOrdering Facility: [facility] Address: [address] [place] [address] Performed By: #### A LLBG ####[facility]ORATORYCLIA [id number] [address] [place] HCO3 (Bld) [Moles/Vol] 22 mmol/L Normal 22-26 [facility] Comment on above: Order Comment: Speci men Type: ARTERIAL BLOOD SPECIMENOrdering Facility: [facility] Address: [address] [place] [address] Performed By: #### A LLBG ####[facility] LABORATORYCLIA [id number] [address] OF [place] Hematocrit (Bld) [Volume fraction] 29.8 % Low 36.0-46.0 [facility] Comment on above: Order Comment: Speci men Type: ARTERIAL BLOOD SPECIMENOrdering Facility: [facility] Address: [address] [place] [address] Performed By: #### A LLBG ####[facility] LABORATORYCLIA [id number] [address] Hemoglobin (Bld) [Mass/Vol] 9.6 g/dL Low 11.5-15.5 [facility] Comment on above: Order Comment: Speci men Type: ARTERIAL BLOOD SPECIMENOrdering Facility: [facility] Address: [address] [place] [address] Performed By: #### A LLBG ####[facility] LABORATORYCLIA [id number] [address] [place] Methemoglobin (Bld) [Mass fraction] % Normal 0.0-1.5 [facility] Comment on above: Order Comment: Speci men Type: ARTERIAL BLOOD SPECIMENOrdering Facility: [facility] Address: [address] [place] [address] Performed By: #### A LLBG ####[facility] LABORATORYCLIA [id number] [address] [place] O2 THERAPY Ventilator Normal [facility] Comment on above: Order Comment: Speci men Type: ARTERIAL BLOOD SPECIMENOrdering Facility: [facility] Address: [address] [place] [place] [address] Performed By: #### A LLBG ####[facility] LABORATORYCLIA [id number] [address] Oxygen (Bld) [Partial pressure] 112 mm Hg High 85-95 [facility] Comment on above: Order Comment: Speci men Type: ARTERIAL BLOOD SPECIMENOrdering Facility: [facility] Address: [address] [place] [address] Performed By: #### A LLBG ####[facility] LABORATORYCLIA [id number] [address] Oxygen adjusted to patient's actual temperature (Bld) [Partial pressure] 109 mmHg High 85-95 [facility] Comment on above: Order Comment: Speci men Type: ARTERIAL BLOOD SPECIMENOrdering Facility: [facility] Address: [address] [place] [address] Performed By: #### A LLBG ####[facility] LABORATORYCLIA [id number] [address] OF [place] OXYGEN SATURATION, ARTERIAL 99 % High 95-98 [facility] Comment on above: Order Comment: Speci men Type: ARTERIAL BLOOD SPECIMENOrdering Facility: [facility] Address: [address] [place] [address] Performed By: #### A LLBG ####[facility] LABORATORYCLIA [id number] [address] [place] Oxyhemoglobin (BldA) [Mass fraction] 97 % Normal 95-98 [facility] Comment on above: Order Comment: Speci men Type: ARTERIAL BLOOD SPECIMENOrdering Facility: [facility] Address: [address] [place] [address] Performed By: #### A LLBG ####[facility] LABORATORYCLIA [id number] [address] [place] pH (Bld) 7.40 [pH] Normal 7.35-7.45 [facility] Comment on above: Order Comment: Speci men Type: ARTERIAL BLOOD SPECIMENOrdering Facility: [facility] Address: [address] [place] [address] Performed By: #### A LLBG ####[facility] LABORATORYCLIA [id number] [address] pH adjusted to patient's actual temperature (Bld) 7.41 Normal 7.35-7.45 [facility] Comment on above: Order Comment: Speci men Type: ARTERIAL BLOOD SPECIMENOrdering Facility: [facility] Address: [address] [place] [address] Performed By: #### A LLBG ####[facility] LABORATORYCLIA [id number] [address] [place] Potassium [Moles/Vol] 3.3 mmol/L Low 3.5-5.0 [facility] Comment on above: Order Comment: Speci men Type: ARTERIAL BLOOD SPECIMENOrdering Facility: [facility] Address: [address] [place] [address] Performed By: #### A LLBG ####[facility] LABORATORYCLIA [id number] [address] STATES [facility] Sodium [Moles/Vol] 144 mmol/L Normal 136-144 [facility] Comment on above: Order Comment: Speci men Type: ARTERIAL BLOOD SPECIMENOrdering Facility: [facility] Address: [address] [place] [address] Performed By: #### A LLBG ####[facility] LABORATORYCLIA [id number] [place] [address] [place] BASE DEFICIT, ARTERIAL -3 mmol/L Low -2-0 [facility] Comment on above: Order Comment: Speci men Type: ARTERIAL BLOOD SPECIMENOrdering Facility: [facility] Address: [address] [place] [address] Performed By: #### A LLBG ####[facility] LABORATORYCLIA [id number] [address] [place] Body temperature 98.06 [degF] Normal [facility] Comment on above: Order Comment: Speci men Type: ARTERIAL BLOOD SPECIMENOrdering Facility: [facility] Address: [address] [place] [address] Performed By: #### A LLBG ####[facility] LABORATORYCLIA [id number] [address] STATES OF [facility] CALCIUM IONIZED, PH CORRECTED 1.13 mmol/L Normal 1.08-1.30 [facility] Comment on above: Order Comment: Speci men Type: ARTERIAL BLOOD SPECIMENOrdering Facility: [facility] Address: [address] [place] [address] Performed By: #### A LLBG ####[facility] LABORATORYCLIA [id number] [address] Calcium.ionized (BldV) [Mass/Vol] 1.12 mmol/L Normal 1.08-1.30 [facility] Comment on above: Order Comment: Speci men Type: ARTERIAL BLOOD SPECIMENOrdering Facility: [facility] Address: [address] [place] [address] Performed By: #### A LLBG ####[facility] LABORATORYCLIA [id number] [address] OF [facility] Carboxyhemoglobin (BldA) [Mass fraction] 1.5 % Normal 0.0-2.0 [facility] Comment on above: Order Comment: Speci men Type: ARTERIAL BLOOD SPECIMENOrdering Facility: [facility] Address: [address] [place] [address] Result Comment: Carb oxyhemoglobin Reference Range for Smokers: 2.0-8.0% Performed By: #### A LLBG ####[facility] LABORATORYCLIA [id number] [address] OF [facility] CO2 (Bld) [Partial pressure] 33 mm Hg Low 36-46 [facility] Comment on above: Order Comment: Speci men Type: ARTERIAL BLOOD SPECIMENOrdering Facility: [facility] Address: [address] [place] [address] Performed By: #### A LLBG ####[facility] LABORATORYCLIA [id number] [address] STATES OF [facility] CO2 [Moles/Vol] 19 mmol/L Low 22-28 [facility] Comment on above: Order Comment: Speci men Type: ARTERIAL BLOOD SPECIMENOrdering Facility: [facility] Address: [address] [place] [address] Performed By: #### A LLBG ####[facility] LABORATORYCLIA [id number] [address] OF [place] CO2 adjusted to patient's actual temperature (Bld) [Partial pressure] 33 mmHg Low 36-46 [facility] Comment on above: Order Comment: Speci men Type: ARTERIAL BLOOD SPECIMENOrdering Facility: [facility] Address: [address] [place] [address] Performed By: #### A LLBG ####[facility] LABORATORYCLIA [id number] [address] [place] Glucose [Mass/Vol] 149 mg/dL High 60-105 [facility] Comment on above: Order Comment: Speci men Type: ARTERIAL BLOOD SPECIMENOrdering Facility: [facility] Address: [address] [place] [address] Performed By: #### A LLBG ####[facility] LABORATORYCLIA [id number] [address] [place] HCO3 (Bld) [Moles/Vol] 21 mmol/L Low 22-26 [facility] Comment on above: Order Comment: Speci men Type: ARTERIAL BLOOD SPECIMENOrdering Facility: [facility] Address: [address] [place] [address] Performed By: #### A LLBG ####[facility] LABORATORYCLIA [id number] [address] [place] Hematocrit (Bld) [Volume fraction] 30.4 % Low 36.0-46.0 [facility] Comment on above: Order Comment: Speci men Type: ARTERIAL BLOOD SPECIMENOrdering Facility: [facility] Address: [address] [address] Performed By: #### A LLBG ####[facility]ORATORYCLIA [id number] [address] [place] Hemoglobin (Bld) [Mass/Vol] 9.8 g/dL Low 11.5-15.5 [facility] Comment on above: Order Comment: Speci men Type: ARTERIAL BLOOD SPECIMENOrdering Facility: [facility] Address: [address] [place] [address] Performed By: #### A LLBG ####[facility] LABORATORYCLIA [id number] [address] [place] Methemoglobin (Bld) [Mass fraction] 1.1 % Normal 0.0-1.5 [facility] Comment on above: Order Comment: Speci men Type: ARTERIAL BLOOD SPECIMENOrdering Facility: [facility] Address: [address] [place] [address] Performed By: #### A LLBG ####[facility] LABORATORYCLIA [id number] [address] [place] O2 THERAPY Ventilator Normal [facility] Comment on above: Order Comment: Speci men Type: ARTERIAL BLOOD SPECIMENOrdering Facility: [facility] Address: [address] [place] [address] Performed By: #### A LLBG ####[facility] LABORATORYCLIA [id number] [address] [place] Oxygen (Bld) [Partial pressure] 107 mm Hg High 85-95 [facility] Comment on above: Order Comment: Speci men Type: ARTERIAL BLOOD SPECIMENOrdering Facility: [facility] Address: [address] [place] [address] Performed By: #### A LLBG ####[facility]ORATORYCLIA [id number] [address] [place] Oxygen adjusted to patient's actual temperature (Bld) [Partial pressure] 105 mmHg High 85-95 [facility] Comment on above: Order Comment: Speci men Type: ARTERIAL BLOOD SPECIMENOrdering Facility: [facility] Address: [address] [place] [address] Performed By: #### A LLBG ####[facility] LABORATORYCLIA [id number] [address] OXYGEN SATURATION, ARTERIAL 99 % High 95-98 [facility] Comment on above: Order Comment: Speci men Type: ARTERIAL BLOOD SPECIMENOrdering Facility: [facility] Address: [address] [place] [address] Performed By: #### A LLBG ####[facility] LABORATORYCLIA [id number] [address] Oxyhemoglobin (BldA) [Mass fraction] 96 % Normal 95-98 [facility] Comment on above: Order Comment: Speci men Type: ARTERIAL BLOOD SPECIMENOrdering Facility: [facility] Address: [address] [place] [address] Performed By: #### A LLBG ####[facility] LABORATORYCLIA [id number] [place] [address] [place] pH (Bld) 7.41 [pH] Normal 7.35-7.45 [facility] Comment on above: Order Comment: Speci men Type: ARTERIAL BLOOD SPECIMENOrdering Facility: [facility] Address: [address] [place] [address] Performed By: #### A LLBG ####[facility] LABORATORYCLIA [id number] [address] pH adjusted to patient's actual temperature (Bld) 7.42 Normal 7.35-7.45 [facility] Comment on above: Order Comment: Speci men Type: ARTERIAL BLOOD SPECIMENOrdering Facility: [facility] Address: [address] [place] [address] Performed By: #### A LLBG ####[facility] LABORATORYCLIA [id number] [address] [place] Potassium [Moles/Vol] 3.4 mmol/L Low 3.5-5.0 [facility] Comment on above: Order Comment: Speci men Type: ARTERIAL BLOOD SPECIMENOrdering Facility: [facility] Address: [address] [place] [address] Performed By: #### A LLBG ####[facility] LABORATORYCLIA [id number] [address] [place] Sodium [Moles/Vol] 143 mmol/L Normal 136-144 [facility] Comment on above: Order Comment: Speci men Type: ARTERIAL BLOOD SPECIMENOrdering Facility: [facility] Address: [address] [place] [address] Performed By: #### A LLBG ####[facility] LABORATORYCLIA [id number] [address] [place] CASE MGT INIT ASSESon 2021 CASE MGT INIT ASSES Normal [facility] CBC panel Auto (Bld)on 10-29 Erythrocyte distribution width (RBC) [Ratio] 20.2 % High 11.5-15.0 [facility] Comment on above: Order Comment: Speci men Type: BLOOD SPECIMENOrdering Facility: [facility] Address: [address] [place] [address] Performed By: #### 5 8410-2 ####[facility] LABORATORYCLIA [id number] [address] [place] Hematocrit (Bld) [Volume fraction] 30.9 % Low 36.0-46.0 [facility] Comment on above: Order Comment: Speci men Type: BLOOD SPECIMENOrdering Facility: [facility] Address: [address] [place] [address] Performed By: #### 5 8410-2 ####[facility] LABORATORYCLIA [id number] [address] [place] Hemoglobin (Bld) [Mass/Vol] 10.0 g/dL Low 11.5-15.5 [facility] Comment on above: Order Comment: Speci men Type: BLOOD SPECIMENOrdering Facility: [facility] Address: [address] [place] [address] Performed By: #### 5 8410-2 ####[facility] LABORATORYCLIA [id number] [address] MCH (RBC) [Entitic mass] 31.4 pg Normal 26.0-34.0 [facility] Comment on above: Order Comment: Speci men Type: BLOOD SPECIMENOrdering Facility: [facility] Address: [address] [place] [address] Performed By: #### 5 8410-2 ####[facility] LABORATORYCLIA [id number] [address] MCHC (RBC) [Mass/Vol] 32.4 g/dL Normal 30.5-36.0 [facility] Comment on above: Order Comment: Speci men Type: BLOOD SPECIMENOrdering Facility: [facility] Address: [address] [place] [address] Performed By: #### 5 8410-2 ####[facility] LABORATORYCLIA [id number] [address] MCV (RBC) [Entitic vol] 97.2 fL Normal 80.0-100.0 [facility] Comment on above: Order Comment: Speci men Type: BLOOD SPECIMENOrdering Facility: [facility] Address: [address] [place] [address] Performed By: #### 5 8410-2 ####[facility] LABORATORYCLIA [id number] [address] Nucleated RBC (Bld) [#/Vol] 10*3/uL Normal <0.01 [facility] Comment on above: Order Comment: Speci men Type: BLOOD SPECIMENOrdering Facility: [facility] Address: [address] [place] [address] Performed By: #### 5 8410-2 ####[facility] LABORATORYCLIA [id number] [address] Platelet mean volume (Bld) [Entitic vol] 9.2 fL Normal 9.0-12.7 [facility] Comment on above: Order Comment: Speci men Type: BLOOD SPECIMENOrdering Facility: [facility] Address: [address] [place] [address] Performed By: #### 5 8410-2 ####[facility] LABORATORYCLIA [id number] [address] [place] Platelets (Bld) [#/Vol] 219 10*3/uL Normal 150-400 [facility] Comment on above: Order Comment: Speci men Type: BLOOD SPECIMENOrdering Facility: [facility] Address: [address] [place] [address] Performed By: #### 5 8410-2 ####[facility] LABORATORYCLIA [id number] [address] [place] RBC (Bld) [#/Vol] 3.18 10*6/uL Low 3.90-5.20 [facility] Comment on above: Order Comment: Speci men Type: BLOOD SPECIMENOrdering Facility: [facility] Address: [address] [place] [address] Performed By: #### 5 8410-2 ####[facility] LABORATORYCLIA [id number] [address] [place] WBC (Bld) [#/Vol] 8.51 10*3/uL Normal 3.70-11.00 [facility] Comment on above: Order Comment: Speci men Type: BLOOD SPECIMENOrdering Facility: [facility] Address: [address] [place] [address] Performed By: #### 5 8410-2 ####[facility] LABORATORYCLIA [id number] [address] Erythrocyte distribution width (RBC) [Ratio] 19.4 % High 11.5-15.0 [facility] Comment on above: Order Comment: Speci men Type: BLOOD SPECIMENOrdering Facility: [facility] Address: [address] [place] [address] Performed By: #### 5 8410-2 ####[facility] LABORATORYCLIA [id number] [address] Hematocrit (Bld) [Volume fraction] 29.2 % Low 36.0-46.0 [facility] Comment on above: Order Comment: Speci men Type: BLOOD SPECIMENOrdering Facility: [facility] Address: [address] [place] [address] Performed By: #### 5 8410-2 ####[facility] LABORATORYCLIA [id number] [address] STATES OF [facility] Hemoglobin (Bld) [Mass/Vol] 9.5 g/dL Low 11.5-15.5 [facility] Comment on above: Order Comment: Speci men Type: BLOOD SPECIMENOrdering Facility: [facility] Address: [address] [place] [address] Performed By: #### 5 8410-2 ####[facility] LABORATORYCLIA [id number] [address] STATES OF [facility] MCH (RBC) [Entitic mass] 31.6 pg Normal 26.0-34.0 [facility] Comment on above: Order Comment: Speci men Type: BLOOD SPECIMENOrdering Facility: [facility] Address: [address] [place] [address] Performed By: #### 5 8410-2 ####[facility] LABORATORYCLIA [id number] [address] [place] MCHC (RBC) [Mass/Vol] 32.5 g/dL Normal 30.5-36.0 [facility] Comment on above: Order Comment: Speci men Type: BLOOD SPECIMENOrdering Facility: [facility] Address: [address] [place] [address] Performed By: #### 5 8410-2 ####[facility] LABORATORYCLIA [id number] [address] MCV (RBC) [Entitic vol] 97.0 fL Normal 80.0-100.0 [facility] Comment on above: Order Comment: Speci men Type: BLOOD SPECIMENOrdering Facility: [facility] Address: [address] [address] Performed By: #### 5 8410-2 ####[facility] LABORATORYCLIA [id number] [address] [place] Nucleated RBC (Bld) [#/Vol] 10*3/uL Normal <0.01 [facility] Comment on above: Order Comment: Speci men Type: BLOOD SPECIMENOrdering Facility: [facility] Address: [address] [place] [address] Performed By: #### 5 8410-2 ####[facility] LABORATORYCLIA [id number] [address] [place] Platelet mean volume (Bld) [Entitic vol] 9.0 fL Normal 9.0-12.7 [facility] Comment on above: Order Comment: Speci men Type: BLOOD SPECIMENOrdering Facility: [facility] Address: [address] [place] [address] Performed By: #### 5 8410-2 ####[facility] LABORATORYCLIA [id number] [address] [place] Platelets (Bld) [#/Vol] 200 10*3/uL Normal 150-400 [facility] Comment on above: Order Comment: Speci men Type: BLOOD SPECIMENOrdering Facility: [facility] Address: [address] Performed By: #### 5 8410-2 ####[facility] LABORATORYCLIA [id number] [address] [place] RBC (Bld) [#/Vol] 3.01 10*6/uL Low 3.90-5.20 [facility] Comment on above: Order Comment: Speci men Type: BLOOD SPECIMENOrdering Facility: [facility] Address: [address] [place] [address] Performed By: #### 5 8410-2 ####[facility] LABORATORYCLIA [id number] [address] OF [facility] WBC (Bld) [#/Vol] 8.37 10*3/uL Normal 3.70-11.00 [facility] Comment on above: Order Comment: Speci men Type: BLOOD SPECIMENOrdering Facility: [facility] Address: [address] [place] [address] Performed By: #### 5 8410-2 ####[facility] LABORATORYCLIA [id number] [address] OF [facility] CONSULT PROGon 10-29-2021 CONSULT PROG Normal [facility] Comprehensive metabolic 2000 panelon 10-29-2021 Albumin [Mass/Vol] 3.0 g/dL Low 3.9-4.9 [facility] Comment on above: Order Comment: Speci men Type: BLOOD SPECIMENOrdering Facility: [facility] Address: [address] [place] [address] Performed By: #### 1 9123-9, 42450-1, 2777-1 ####[facility] LABORATORYCLIA [id number] [address] STATES [facility] ALP [Catalytic activity/Vol] 57 U/L Normal 34-123 [facility] Comment on above: Order Comment: Speci men Type: BLOOD SPECIMENOrdering Facility: [facility] Address: [address] [place] [address] Performed By: #### 1 9123-9, 75012-4, 2777-1 ####[facility] LABORATORYCLIA [id number] [address] ALT With P-5'-P [Catalytic activity/Vol] 8 U/L Normal 7-38 [facility] Comment on above: Order Comment: Speci men Type: BLOOD SPECIMENOrdering Facility: [facility] Address: [address] [place] [address] Performed By: #### 1 9123-9, 30601-7, 2776-08 ####[facility] LABORATORYCLIA [id number] [place] [address] [place] Anion gap [Moles/Vol] 9 mmol/L Normal 9-18 [facility] Comment on above: Order Comment: Speci men Type: BLOOD SPECIMENOrdering Facility: [facility] Address: [address] [place] [address] Performed By: #### 1 9123-9, 15129-6, 2776- ####[facility] LABORATORYCLIA [id number] [place] [address] [place] AST With P-5'-P [Catalytic activity/Vol] 10 U/L Low 13-35 [facility] Comment on above: Order Comment: Speci men Type: BLOOD SPECIMENOrdering Facility: [facility] Address: [address] [place] [address] Performed By: #### 1 9123-9, , 2776-08 ####[facility]OMINGTONCLIA [id number] [address] STATES OF [facility] Bilirubin [Mass/Vol] 0.2 mg/dL Normal 0.2-1.3 [facility] Comment on above: Order Comment: Speci men Type: BLOOD SPECIMENOrdering Facility: [facility] Address: [address] [place] [address] Performed By: #### 1 9123-9, 20589-4, 2776-08 ####[facility] LABORATORYCLIA [id number] [address] STATES OF [facility] Calcium [Mass/Vol] 7.8 mg/dL Low 8.5-10.2 [facility] Comment on above: Order Comment: Speci men Type: BLOOD SPECIMENOrdering Facility: [facility] Address: [address] [place] [address] Performed By: #### 1 9123-9, 12408-2, 277- ####[facility] LABORATORYCLIA [id number] [address] [place] Chloride [Moles/Vol] 111 mmol/L High 97-105 [facility] Comment on above: Order Comment: Lauern santana Type: BLOOD SPECIMENOrdering Facility: [facility] Address: [address] [place] [address] Performed By: #### 1 9123-9, 92390-8, 2777-1 ####[facility] LABORATORYCLIA [id number] [address] OF [facility] CO2 [Moles/Vol] 22 mmol/L Normal 22-30 [facility] Comment on above: Order Comment: Speci men Type: BLOOD SPECIMENOrdering Facility: [facility] Address: [address] [place] [address] Performed By: #### 1 9123-9, 13720-2, 2777- ####[facility] LABORATORYCLIA [id number] [address] Creatinine [Mass/Vol] 0.41 mg/dL Low 0.58-0.96 [facility] Comment on above: Order Comment: Speci men Type: BLOOD SPECIMENOrdering Facility: [facility] Address: [address] [place] [address] Performed By: #### 1 9123-9, 75671-2, 2777- ####[facility] LABORATORYCLIA [id number] [address] ESTIMATED GLOMERULAR FILTRATION RATE 109 mL/min/1.73m??? Normal >=60 [facility] Comment on above: Order Comment: Speci men Type: BLOOD SPECIMENOrdering Facility: [facility] Address: [address] [place] [address] Result Comment: Ameena mated Glomerular Filtration Rate [...] actual GFR. Performed By: #### 1 9123-9, 72466-9, 2777- ####[facility] LABORATORYCLIA [id number] [place] [address] [place] Glucose [Mass/Vol] 165 mg/dL High 74-99 [facility] Comment on above: Order Comment: Speci men Type: BLOOD SPECIMENOrdering Facility: [facility] Address: [address] [place] [address] Result Comment: The [place] [employer] (ADA) provides guidance for cutoff [...] Standards of Medical Care in Diabetes 2016, [place] [employer]. Diabetes Care. 2016.39(Suppl 1). Performed By: #### 1 9123-9, 80797-8, 2777 ####[facility] LABORATORYCLIA [id number] [place] [address] [place] Potassium [Moles/Vol] 3.5 mmol/L Low 3.7-5.1 [facility] Comment on above: Order Comment: Speci men Type: BLOOD SPECIMENOrdering Facility: [facility] Address: [address] [address] Performed By: #### 1 9123-9, 72515-4, 2777- ####[facility] LABORATORYCLIA [id number] [place] [address] [place] Protein [Mass/Vol] 5.2 g/dL Low 6.3-8.0 [facility] Comment on above: Order Comment: Speci men Type: BLOOD SPECIMENOrdering Facility: [facility] Address: [address] [address] Performed By: #### 1 9123-9, 93954-7, 2777-1 ####[facility] LABORATORYCLIA [id number] [place] [address] [place] Sodium [Moles/Vol] 142 mmol/L Normal 136-144 [facility] Comment on above: Order Comment: Speci men Type: BLOOD SPECIMENOrdering Facility: [facility] Address: [address] [place] [address] Performed By: #### 1 9123-9, 51369-7, 277- ####[facility] LABORATORYCLIA [id number] [place] [address] [place] Urea nitrogen [Mass/Vol] 8 mg/dL Normal 7-21 [facility] Comment on above: Order Comment: Speci men Type: BLOOD SPECIMENOrdering Facility: [facility] Address: [address] [place] [address] Performed By: #### 1 9123-9, 07089-4, 27702-15 ####[facility] LABORATORYCLIA [id number] [place] [address] [place] Lactate (Bld) [Moles/Vol]on 10-29-2021 Lactate [Moles/Vol] 1.3 mmol/L Normal 0.5-2.2 [facility] Comment on above: Order Comment: Speci men Type: BLOOD SPECIMENOrdering Facility: [facility] Address: [address] [place] [address] Performed By: #### 3 2693-4 ####[facility] LABORATORYCLIA [id number] [place] [address] [place] Magnesium SerPl-mCncon 10-29 Magnesium [Mass/Vol] 2.4 mg/dL High 1.7-2.3 [facility] Comment on above: Order Comment: Speci men Type: BLOOD SPECIMENOrdering Facility: [facility] Address: [address] [place] [address] Performed By: #### 1 9123-9, 53241-3, 2777- ####[facility] LABORATORYCLIA [id number] [address] [place] NURSING PROGon 10-29-2021 NURSING PROG Normal [facility] NURSING PROG Normal [facility] Phosphate SerPl-mCncon 10-29 Phosphate [Mass/Vol] 2.4 mg/dL Low 2.7-4.8 [facility] Comment on above: Order Comment: Speci men Type: BLOOD SPECIMENOrdering Facility: [facility] Address: [address] [place] [address] Performed By: #### 1 9123-9, 43763-9, 2777-1 ####[facility] LABORATORYCLIA [id number] [address] OF [facility] VITAMIN D 25 HYDROXYon 10-29 25-hydroxyvitamin D3 [Mass/Vol] 21.4 ng/mL Low 30.0-100.0 [facility] Comment on above: Order Comment: Speci men Type: BLOOD SPECIMENOrdering Facility: [facility] Address: [address] [place] [address] Result Comment: Clas sification of 25 [place] Vitamin D status:Deficiency: <= 20.0 ng/ml.Insufficientcy: 21.0-29.0 ng/ml.Sufficiency: >= 30.0 ng/ml. Performed By: #### V ITD ####[facility] LABORATORYCLIA [id number] [address] OF [facility] XR CHEST 1V FRONTALon 2021 XR CHEST 1V FRONTAL Normal [facility] XR CHEST 1V FRONTAL Normal [facility] ALLIED HEALTHon 10-28-2021 ALLIED HEALTH Normal [facility] ALLIED HEALTH Normal [facility] ALLIED HEALTH Normal [facility] ALLIED HEALTH Normal [facility] ANES POSTPROC EVALon 022 ANES POSTPROC EVAL Normal [facility] ANES POSTPROC EVAL Normal [facility] ANES PRE-OPon 10-28-2021 ANES PRE-OP Normal [facility] ANES PRE-OP Normal [facility] ARTERIAL BLOOD GASESon 10-28 BASE DEFICIT, ARTERIAL -3 mmol/L Low -2-0 [facility] Comment on above: Order Comment: Speci men Type: ARTERIAL BLOOD SPECIMENOrdering Facility: [facility] Address: [address] [place] [address] Performed By: #### A LLBG ####[facility] LABORATORYCLIA [id number] [address] [place] Body temperature 98.6 [degF] Normal [facility] Comment on above: Order Comment: Speci men Type: ARTERIAL BLOOD SPECIMENOrdering Facility: [facility] Address: [address] [place] [address] Performed By: #### A LLBG ####[facility] LABORATORYCLIA [id number] [place] [address] [place] CALCIUM IONIZED, PH CORRECTED 1.13 mmol/L Normal 1.08-1.30 [facility] Comment on above: Order Comment: Speci men Type: ARTERIAL BLOOD SPECIMENOrdering Facility: [facility] Address: [address] [place] [address] Performed By: #### A LLBG ####[facility] LABORATORYCLIA [id number] [address] [place] Calcium.ionized (BldV) [Mass/Vol] 1.13 mmol/L Normal 1.08-1.30 [facility] Comment on above: Order Comment: Speci men Type: ARTERIAL BLOOD SPECIMENOrdering Facility: [facility] Address: [address] [place] [address] Performed By: #### A LLBG ####[facility] LABORATORYCLIA [id number] [address] [place] Carboxyhemoglobin (BldA) [Mass fraction] 1.5 % Normal 0.0-2.0 [facility] Comment on above: Order Comment: Speci men Type: ARTERIAL BLOOD SPECIMENOrdering Facility: [facility] Address: [address] [place] [address] Result Comment: Carb oxyhemoglobin Reference Range for Smokers: 2.0-8.0% Performed By: #### A LLBG ####[facility]ORATORYCLIA [id number] [address] [place] CO2 (Bld) [Partial pressure] 34 mm Hg Low 36-46 [facility] Comment on above: Order Comment: Speci men Type: ARTERIAL BLOOD SPECIMENOrdering Facility: [facility] Address: [address] [place] [address] Performed By: #### A LLBG ####[facility] LABORATORYCLIA [id number] [address] [place] CO2 [Moles/Vol] 19 mmol/L Low 22-28 [facility] Comment on above: Order Comment: Speci men Type: ARTERIAL BLOOD SPECIMENOrdering Facility: [facility] Address: [address] [place] [address] Performed By: #### A LLBG ####[facility] LABORATORYCLIA [id number] [address] [place] Glucose [Mass/Vol] 155 mg/dL High 60-105 [facility] Comment on above: Order Comment: Speci men Type: ARTERIAL BLOOD SPECIMENOrdering Facility: [facility] Address: [address] [place] [address] Performed By: #### A LLBG ####[facility] LABORATORYCLIA [id number] [place] [address] [place] HCO3 (Bld) [Moles/Vol] 21 mmol/L Low 22-26 [facility] Comment on above: Order Comment: Speci men Type: ARTERIAL BLOOD SPECIMENOrdering Facility: [facility] Address: [address] [place] [address] Performed By: #### A LLBG ####[facility] LABORATORYCLIA [id number] [place] [address] [place] Hematocrit (Bld) [Volume fraction] 31.9 % Low 36.0-46.0 [facility] Comment on above: Order Comment: Speci men Type: ARTERIAL BLOOD SPECIMENOrdering Facility: [facility] Address: [address] [address] Performed By: #### A LLBG ####[facility] LABORATORYCLIA [id number] [address] OF [facility] Hemoglobin (Bld) [Mass/Vol] 10.3 g/dL Low 11.5-15.5 [facility] Comment on above: Order Comment: Speci men Type: ARTERIAL BLOOD SPECIMENOrdering Facility: [facility] Address: [address] [place] [address] Performed By: #### A LLBG ####[facility] LABORATORYCLIA [id number] [address] OF [facility] Methemoglobin (Bld) [Mass fraction] 1.1 % Normal 0.0-1.5 [facility] Comment on above: Order Comment: Speci men Type: ARTERIAL BLOOD SPECIMENOrdering Facility: [facility] Address: [address] [place] [address] Performed By: #### A LLBG ####[facility] LABORATORYCLIA [id number] [address] O2 THERAPY Ventilator Normal [facility] Comment on above: Order Comment: Speci men Type: ARTERIAL BLOOD SPECIMENOrdering Facility: [facility] Address: [address] [place] [address] Result Comment: 30% Performed By: #### A LLBG ####[facility]ORATORYCLIA [id number] [address] [place] Oxygen (Bld) [Partial pressure] 92 mm Hg Normal 85-95 [facility] Comment on above: Order Comment: Speci men Type: ARTERIAL BLOOD SPECIMENOrdering Facility: [facility] Address: [address] [place] [address] Performed By: #### A LLBG ####[facility]ORATORYCLIA [id number] [address] [place] OXYGEN SATURATION, ARTERIAL 98 % Normal 95-98 [facility] Comment on above: Order Comment: Speci men Type: ARTERIAL BLOOD SPECIMENOrdering Facility: [facility] Address: [address] [place] [address] Performed By: #### A LLBG ####[facility] LABORATORYCLIA [id number] [address] Oxyhemoglobin (BldA) [Mass fraction] 96 % Normal 95-98 [facility] Comment on above: Order Comment: Speci men Type: ARTERIAL BLOOD SPECIMENOrdering Facility: [facility] Address: [address] [place] [address] Performed By: #### A LLBG ####[facility] LABORATORYCLIA [id number] [address] STATES OF [facility] pH (Bld) 7.41 [pH] Normal 7.35-7.45 [facility] Comment on above: Order Comment: Speci men Type: ARTERIAL BLOOD SPECIMENOrdering Facility: [facility] Address: [address] [place] [address] Performed By: #### A LLBG ####[facility] LABORATORYCLIA [id number] [address] STATES [facility] Potassium [Moles/Vol] 3.4 mmol/L Low 3.5-5.0 [facility] Comment on above: Order Comment: Speci men Type: ARTERIAL BLOOD SPECIMENOrdering Facility: [facility] Address: [address] [place] [address] Performed By: #### A LLBG ####[facility] LABORATORYCLIA [id number] [address] [place] Sodium [Moles/Vol] 145 mmol/L High 136-144 [facility] Comment on above: Order Comment: Speci men Type: ARTERIAL BLOOD SPECIMENOrdering Facility: [facility] Address: [address] [place] [address] Performed By: #### A LLBG ####[facility] LABORATORYCLIA [id number] [place] [address] [place] BASE DEFICIT, ARTERIAL -2 mmol/L Normal -2-0 [facility] Comment on above: Order Comment: Speci men Type: ARTERIAL BLOOD SPECIMENOrdering Facility: [facility] Address: [address] [place] [address] Performed By: #### A LLBG ####[facility] LABORATORYCLIA [id number] [address] Body temperature 98.6 [degF] Normal [facility] Comment on above: Order Comment: Speci men Type: ARTERIAL BLOOD SPECIMENOrdering Facility: [facility] Address: [address] [place] [address] Performed By: #### A LLBG ####[facility] LABORATORYCLIA [id number] [address] STATES [facility] CALCIUM IONIZED, PH CORRECTED 1.04 mmol/L Low 1.08-1.30 [facility] Comment on above: Order Comment: Speci men Type: ARTERIAL BLOOD SPECIMENOrdering Facility: [facility] Address: [address] [place] [address] Performed By: #### A LLBG ####[facility] LABORATORYCLIA [id number] [address] Calcium.ionized (BldV) [Mass/Vol] 1.03 mmol/L Low 1.08-1.30 [facility] Comment on above: Order Comment: Speci men Type: ARTERIAL BLOOD SPECIMENOrdering Facility: [facility] Address: [address] [place] [address] Performed By: #### A LLBG ####[facility] LABORATORYCLIA [id number] [address] [place] Carboxyhemoglobin (BldA) [Mass fraction] 1.4 % Normal 0.0-2.0 [facility] Comment on above: Order Comment: Speci men Type: ARTERIAL BLOOD SPECIMENOrdering Facility: [facility] Address: [address] [place] [address] Result Comment: Carb oxyhemoglobin Reference Range for Smokers: 2.0-8.0% Performed By: #### A LLBG ####[facility]ORATORYCLIA [id number] [address] [place] CO2 (Bld) [Partial pressure] 35 mm Hg Low 36-46 [facility] Comment on above: Order Comment: Speci men Type: ARTERIAL BLOOD SPECIMENOrdering Facility: [facility] Address: [address] [place] [address] Performed By: #### A LLBG ####[facility] LABORATORYCLIA [id number] [address] [place] CO2 [Moles/Vol] 20 mmol/L Low 22-28 [facility] Comment on above: Order Comment: Speci men Type: ARTERIAL BLOOD SPECIMENOrdering Facility: [facility] Address: [address] [place] [address] Performed By: #### A LLBG ####[facility] LABORATORYCLIA [id number] [address] [place] Glucose [Mass/Vol] 133 mg/dL High 60-105 [facility] Comment on above: Order Comment: Speci men Type: ARTERIAL BLOOD SPECIMENOrdering Facility: [facility] Address: [address] [place] [address] Performed By: #### A LLBG ####[facility] LABORATORYCLIA [id number] [address] [place] HCO3 (Bld) [Moles/Vol] 22 mmol/L Normal 22-26 [facility] Comment on above: Order Comment: Speci men Type: ARTERIAL BLOOD SPECIMENOrdering Facility: [facility] Address: [address] [place] [address] Performed By: #### A LLBG ####[facility] LABORATORYCLIA [id number] [address] [place] Hematocrit (Bld) [Volume fraction] 33.8 % Low 36.0-46.0 [facility] Comment on above: Order Comment: Speci men Type: ARTERIAL BLOOD SPECIMENOrdering Facility: [facility] Address: [address] [address] Performed By: #### A LLBG ####[facility] LABORATORYCLIA [id number] [address] [place] Hemoglobin (Bld) [Mass/Vol] 10.9 g/dL Low 11.5-15.5 [facility] Comment on above: Order Comment: Speci men Type: ARTERIAL BLOOD SPECIMENOrdering Facility: [facility] Address: [address] [place] [address] Performed By: #### A LLBG ####[facility] LABORATORYCLIA [id number] [address] [place] Methemoglobin (Bld) [Mass fraction] 1.1 % Normal 0.0-1.5 [facility] Comment on above: Order Comment: Speci men Type: ARTERIAL BLOOD SPECIMENOrdering Facility: [facility] Address: [address] [place] [address] Performed By: #### A LLBG ####[facility] LABORATORYCLIA [id number] [address] [place] O2 THERAPY Ventilator Normal [facility] Comment on above: Order Comment: Speci men Type: ARTERIAL BLOOD SPECIMENOrdering Facility: [facility] Address: [address] [place] [address] Performed By: #### A LLBG ####[facility] LABORATORYCLIA [id number] [address] [place] Oxygen (Bld) [Partial pressure] 76 mm Hg Low 85-95 [facility] Comment on above: Order Comment: Speci men Type: ARTERIAL BLOOD SPECIMENOrdering Facility: [facility] Address: [address] [place] [address] Performed By: #### A LLBG ####[facility] LABORATORYCLIA [id number] [address] [place] OXYGEN SATURATION, ARTERIAL 96 % Normal 95-98 [facility] Comment on above: Order Comment: Speci men Type: ARTERIAL BLOOD SPECIMENOrdering Facility: [facility] Address: [address] [place] [address] Performed By: #### A LLBG ####[facility] LABORATORYCLIA [id number] [address] STATES [facility] Oxyhemoglobin (BldA) [Mass fraction] 94 % Low 95-98 [facility] Comment on above: Order Comment: Speci men Type: ARTERIAL BLOOD SPECIMENOrdering Facility: [facility] Address: [address] [place] [address] Performed By: #### A LLBG ####[facility] LABORATORYCLIA [id number] [address] [place] pH (Bld) 7.41 [pH] Normal 7.35-7.45 [facility] Comment on above: Order Comment: Speci men Type: ARTERIAL BLOOD SPECIMENOrdering Facility: [facility] Address: [address] [place] [address] Performed By: #### A LLBG ####[facility] LABORATORYCLIA [id number] [address] [place] Potassium [Moles/Vol] 3.7 mmol/L Normal 3.5-5.0 [facility] Comment on above: Order Comment: Speci men Type: ARTERIAL BLOOD SPECIMENOrdering Facility: [facility] Address: [address] [place] [address] Performed By: #### A LLBG ####[facility] LABORATORYCLIA [id number] [address] [place] Sodium [Moles/Vol] 145 mmol/L High 136-144 [facility] Comment on above: Order Comment: Speci men Type: ARTERIAL BLOOD SPECIMENOrdering Facility: [facility] Address: [address] [place] [address] Performed By: #### A LLBG ####[facility] LABORATORYCLIA [id number] [place] [address] [place] CALCIUM IONIZED Bon 10-29-19 22 Calcium.ionized (BldV) [Mass/Vol] 1.02 mmol/L Low 1.08-1.30 [facility] Comment on above: Order Comment: Speci men Type: BLOOD SPECIMENOrdering Facility: [facility] Address: [address] [place] [address] Performed By: #### I CA ####[facility] LABORATORYCLIA [id number] [address] STATES [facility] Calcium.ionized adjusted to pH 7.4 (Bld) [Moles/Vol] 1.00 mmol/L Low 1.08-1.30 [facility] Comment on above: Order Comment: Speci men Type: BLOOD SPECIMENOrdering Facility: [facility] Address: [address] [place] [address] Performed By: #### I CA ####[facility] LABORATORYCLIA [id number] [address] STATES OF [facility] CBC W Auto Differential pane l (Bld)on 10-28-2021 Basophils (Bld) [#/Vol] 10*3/uL Normal <0.11 [facility] Comment on above: Order Comment: Speci men Type: BLOOD SPECIMENOrdering Facility: [facility] Address: [address] [place] [address] Performed By: #### 5 7021-8 ####[facility] LABORATORYCLIA [id number] [address] STATES OF [facility] Basophils/100 WBC (Bld) 0.2 % Normal A [facility] Comment on above: Order Comment: Speci men Type: BLOOD SPECIMENOrdering Facility: [facility] Address: [address] [place] [address] Performed By: #### 5 7021-8 ####[facility] LABORATORYCLIA [id number] [address] Differential cell count method Nom (Bld) Auto Normal [facility] Comment on above: Order Comment: Speci men Type: BLOOD SPECIMENOrdering Facility: [facility] Address: [address] [place] [address] Performed By: #### 5 7021-8 ####[facility] LABORATORYCLIA [id number] [address] [place] Eosinophils (Bld) [#/Vol] 0.03 10*3/uL Normal <0.46 [facility] Comment on above: Order Comment: Speci men Type: BLOOD SPECIMENOrdering Facility: [facility] Address: [address] [place] [address] Performed By: #### 5 7021-8 ####[facility] LABORATORYCLIA [id number] [address] Eosinophils/100 WBC (Bld) 0.2 % Normal [facility] Comment on above: Order Comment: Speci men Type: BLOOD SPECIMENOrdering Facility: [facility] Address: [address] [place] [address] Performed By: #### 5 7021-8 ####[facility] LABORATORYCLIA [id number] [address] Erythrocyte distribution width (RBC) [Ratio] 18.4 % High 11.5-15.0 [facility] Comment on above: Order Comment: Speci men Type: BLOOD SPECIMENOrdering Facility: [facility] Address: [address] [place] [address] Performed By: #### 5 7021-8 ####[facility] LABORATORYCLIA [id number] [address] Hematocrit (Bld) [Volume fraction] 37.8 % Normal 36.0-46.0 [facility] Comment on above: Order Comment: Speci men Type: BLOOD SPECIMENOrdering Facility: [facility] Address: [address] [place] [address] Performed By: #### 5 7021-8 ####[facility] LABORATORYCLIA [id number] [address] [place] Hemoglobin (Bld) [Mass/Vol] 12.2 g/dL Normal 11.5-15.5 [facility] Comment on above: Order Comment: Speci men Type: BLOOD SPECIMENOrdering Facility: [facility] Address: [address] [place] [address] Performed By: #### 5 7021-8 ####[facility] LABORATORYCLIA [id number] [address] IMMATURE GRAN % 1.0 % Normal [facility] Comment on above: Order Comment: Speci men Type: BLOOD SPECIMENOrdering Facility: [facility] Address: [address] [place] [address] Performed By: #### 5 7021-8 ####[facility] LABORATORYCLIA [id number] [address] IMMATURE GRAN ABS 0.12 k/uL High <0.10 [facility] Comment on above: Order Comment: Speci men Type: BLOOD SPECIMENOrdering Facility: [facility] Address: [address] [place] [address] Performed By: #### 5 7021-8 ####[facility] LABORATORYCLIA [id number] [address] Lymphocytes (Bld) [#/Vol] 1.86 10*3/uL Normal 1.00-4.0 0 [facility] Comment on above: Order Comment: Speci men Type: BLOOD SPECIMENOrdering Facility: [facility] Address: [address] [place] [address] Performed By: #### 5 7021-8 ####[facility] LABORATORYCLIA [id number] [address] Lymphocytes/100 WBC (Bld) 14.8 % Normal [facility] Comment on above: Order Comment: Speci men Type: BLOOD SPECIMENOrdering Facility: [facility] Address: [address] [place] [address] Performed By: #### 5 7021-8 ####[facility] LABORATORYCLIA [id number] [address] MCH (RBC) [Entitic mass] 32.3 pg Normal 26.0-34.0 [facility] Comment on above: Order Comment: Speci men Type: BLOOD SPECIMENOrdering Facility: [facility] Address: [address] [place] [address] Performed By: #### 5 7021-8 ####[facility] LABORATORYCLIA [id number] [address] MCHC (RBC) [Mass/Vol] 32.3 g/dL Normal 30.5-36.0 [facility] Comment on above: Order Comment: Speci men Type: BLOOD SPECIMENOrdering Facility: [facility] Address: [address] [place] [address] Performed By: #### 5 7021-8 ####[facility] LABORATORYCLIA [id number] [address] MCV (RBC) [Entitic vol] 100.0 fL Normal 80.0-100.0 [facility] Comment on above: Order Comment: Speci men Type: BLOOD SPECIMENOrdering Facility: [facility] Address: [address] [place] [address] Performed By: #### 5 7021-8 ####[facility] LABORATORYCLIA [id number] [address] Monocytes (Bld) [#/Vol] 0.54 10*3/uL Normal <0.87 [facility] Comment on above: Order Comment: Speci men Type: BLOOD SPECIMENOrdering Facility: [facility] Address: [address] [place] [address] Performed By: #### 5 7021-8 ####[facility] LABORATORYCLIA [id number] [address] Monocytes/100 WBC (Bld) 4.3 % Normal [facility] Comment on above: Order Comment: Speci men Type: BLOOD SPECIMENOrdering Facility: [facility] Address: [address] [place] [address] Performed By: #### 5 7021-8 ####[facility] LABORATORYCLIA [id number] [place] [address] [place] Neutrophils (Bld) [#/Vol] 10.04 10*3/uL High 1.45-7. 50 [facility] Comment on above: Order Comment: Speci men Type: BLOOD SPECIMENOrdering Facility: [facility] Address: [address] [place] [address] Performed By: #### 5 7021-8 ####[facility] LABORATORYCLIA [id number] [address] [place] Neutrophils/100 WBC (Bld) 79.5 % Normal [facility] Comment on above: Order Comment: Speci men Type: BLOOD SPECIMENOrdering Facility: [facility] Address: [address] [place] [address] Performed By: #### 5 7021-8 ####[facility] LABORATORYCLIA [id number] [address] [place] Nucleated RBC (Bld) [#/Vol] 10*3/uL Normal <0.01 [facility] Comment on above: Order Comment: Speci men Type: BLOOD SPECIMENOrdering Facility: [facility] Address: [address] [place] [address] Performed By: #### 5 7021-8 ####[facility] LABORATORYCLIA [id number] [address] [place] Nucleated RBC/100 WBC (Bld) [Ratio] 0.0 /100 WBC Normal [facility] Comment on above: Order Comment: Speci men Type: BLOOD SPECIMENOrdering Facility: [facility] Address: [address] [place] [address] Performed By: #### 5 7021-8 ####[facility] LABORATORYCLIA [id number] [address] [place] Platelet mean volume (Bld) [Entitic vol] 9.2 fL Normal 9.0-12.7 [facility] Comment on above: Order Comment: Speci men Type: BLOOD SPECIMENOrdering Facility: [facility] Address: [address] [place] [address] Performed By: #### 5 7021-8 ####[facility] LABORATORYCLIA [id number] [address] Platelets (Bld) [#/Vol] 254 10*3/uL Normal 150-400 [facility] Comment on above: Order Comment: Speci men Type: BLOOD SPECIMENOrdering Facility: [facility] Address: [address] [place] [address] Performed By: #### 5 7021-8 ####[facility] LABORATORYCLIA [id number] [address] RBC (Bld) [#/Vol] 3.78 10*6/uL Low 3.90-5.20 [facility] Comment on above: Order Comment: Speci men Type: BLOOD SPECIMENOrdering Facility: [facility] Address: [address] [place] [address] Performed By: #### 5 7021-8 ####[facility] LABORATORYCLIA [id number] [address] WBC (Bld) [#/Vol] 12.61 10*3/uL High 3.70-11.00 [facility] Comment on above: Order Comment: Speci men Type: BLOOD SPECIMENOrdering Facility: [facility] Address: [address] [place] [address] Performed By: #### 5 7021-8 ####[facility] LABORATORYCLIA [id number] [address] CBC panel Auto (Bld)on 10-28 Erythrocyte distribution width (RBC) [Ratio] 18.6 % High 11.5-15.0 [facility] Comment on above: Order Comment: Speci men Type: BLOOD SPECIMENOrdering Facility: [facility] Address: [address] [place] [address] Performed By: #### 5 8410-2 ####[facility] LABORATORYCLIA [id number] [address] Hematocrit (Bld) [Volume fraction] 32.8 % Low 36.0-46.0 [facility] Comment on above: Order Comment: Speci men Type: BLOOD SPECIMENOrdering Facility: [facility] Address: [address] [place] [address] Performed By: #### 5 8410-2 ####[facility] LABORATORYCLIA [id number] [address] Hemoglobin (Bld) [Mass/Vol] 10.6 g/dL Low 11.5-15.5 [facility] Comment on above: Order Comment: Speci men Type: BLOOD SPECIMENOrdering Facility: [facility] Address: [address] [place] [address] Performed By: #### 5 8410-2 ####[facility] LABORATORYCLIA [id number] [address] MCH (RBC) [Entitic mass] 31.5 pg Normal 26.0-34.0 [facility] Comment on above: Order Comment: Speci men Type: BLOOD SPECIMENOrdering Facility: [facility] Address: [address] [place] [address] Performed By: #### 5 8410-2 ####[facility] LABORATORYCLIA [id number] [address] MCHC (RBC) [Mass/Vol] 32.3 g/dL Normal 30.5-36.0 [facility] Comment on above: Order Comment: Speci men Type: BLOOD SPECIMENOrdering Facility: [facility] Address: [address] [place] [address] Performed By: #### 5 8410-2 ####[facility] LABORATORYCLIA [id number] [address] MCV (RBC) [Entitic vol] 97.3 fL Normal 80.0-100.0 [facility] Comment on above: Order Comment: Speci men Type: BLOOD SPECIMENOrdering Facility: [facility] Address: [address] Performed By: #### 5 8410-2 ####[facility] LABORATORYCLIA [id number] [address] Nucleated RBC (Bld) [#/Vol] 10*3/uL Normal <0.01 [facility] Comment on above: Order Comment: Speci men Type: BLOOD SPECIMENOrdering Facility: [facility] Address: [facility] [address] Performed By: #### 5 8410-2 ####[facility] LABORATORYCLIA [id number] [address] [place] Platelet mean volume (Bld) [Entitic vol] 9.0 fL Normal 9.0-12.7 [facility] Comment on above: Order Comment: Speci men Type: BLOOD SPECIMENOrdering Facility: [facility] Address: [address] [place] [address] Performed By: #### 5 8410-2 ####[facility] LABORATORYCLIA [id number] [address] [place] Platelets (Bld) [#/Vol] 315 10*3/uL Normal 150-400 [facility] Comment on above: Order Comment: Speci men Type: BLOOD SPECIMENOrdering Facility: [facility] Address: [address] Performed By: #### 5 8410-2 ####[facility] LABORATORYCLIA [id number] [address] [place] RBC (Bld) [#/Vol] 3.37 10*6/uL Low 3.90-5.20 [facility] Comment on above: Order Comment: Speci men Type: BLOOD SPECIMENOrdering Facility: [facility] Address: [address] [place] [address] Performed By: #### 5 8410-2 ####[facility] LABORATORYCLIA [id number] [address] [place] WBC (Bld) [#/Vol] 13.78 10*3/uL High 3.70-11.00 [facility] Comment on above: Order Comment: Speci men Type: BLOOD SPECIMENOrdering Facility: [facility] Address: [address] [place] [address] Performed By: #### 5 8410-2 ####[facility] LABORATORYCLIA [id number] [address] STATES [facility] Erythrocyte distribution width (RBC) [Ratio] 18.6 % High 11.5-15.0 [facility] Comment on above: Order Comment: Speci men Type: BLOOD SPECIMENOrdering Facility: [facility] Address: [address] [place] [address] Performed By: #### 5 8410-2 ####[facility] LABORATORYCLIA [id number] [address] Hematocrit (Bld) [Volume fraction] 33.2 % Low 36.0-46.0 [facility] Comment on above: Order Comment: Speci men Type: BLOOD SPECIMENOrdering Facility: [facility] Address: [address] [place] [address] Performed By: #### 5 8410-2 ####[facility] LABORATORYCLIA [id number] [address] [place] Hemoglobin (Bld) [Mass/Vol] 10.9 g/dL Low 11.5-15.5 [facility] Comment on above: Order Comment: Speci men Type: BLOOD SPECIMENOrdering Facility: [facility] Address: [address] [place] [address] Performed By: #### 5 8410-2 ####[facility] LABORATORYCLIA [id number] [address] MCH (RBC) [Entitic mass] 32.2 pg Normal 26.0-34.0 [facility] Comment on above: Order Comment: Speci men Type: BLOOD SPECIMENOrdering Facility: [facility] Address: [address] [place] [address] Performed By: #### 5 8410-2 ####[facility] LABORATORYCLIA [id number] [address] STATES [facility] MCHC (RBC) [Mass/Vol] 32.8 g/dL Normal 30.5-36.0 [facility] Comment on above: Order Comment: Speci men Type: BLOOD SPECIMENOrdering Facility: [facility] Address: [address] [place] [address] Performed By: #### 5 8410-2 ####[facility] LABORATORYCLIA [id number] [address] OF [facility] MCV (RBC) [Entitic vol] 97.9 fL Normal 80.0-100.0 [facility] Comment on above: Order Comment: Speci men Type: BLOOD SPECIMENOrdering Facility: [facility] Address: [address] [place] [address] Performed By: #### 5 8410-2 ####[facility] LABORATORYCLIA [id number] [address] Nucleated RBC (Bld) [#/Vol] 10*3/uL Normal <0.01 [facility] Comment on above: Order Comment: Speci men Type: BLOOD SPECIMENOrdering Facility: [facility] Address: [address] [place] [address] Performed By: #### 5 8410-2 ####[facility] LABORATORYCLIA [id number] [address] Platelet mean volume (Bld) [Entitic vol] 9.0 fL Normal 9.0-12.7 [facility] Comment on above: Order Comment: Speci men Type: BLOOD SPECIMENOrdering Facility: [facility] Address: [address] [place] [address] Performed By: #### 5 8410-2 ####[facility] LABORATORYCLIA [id number] [place] [address] [place] Platelets (Bld) [#/Vol] 308 10*3/uL Normal 150-400 [facility] Comment on above: Order Comment: Speci men Type: BLOOD SPECIMENOrdering Facility: [facility] Address: [address] [place] [address] Performed By: #### 5 8410-2 ####[facility] LABORATORYCLIA [id number] [address] [place] RBC (Bld) [#/Vol] 3.39 10*6/uL Low 3.90-5.20 [facility] Comment on above: Order Comment: Speci men Type: BLOOD SPECIMENOrdering Facility: [facility] Address: [address] [place] [address] Performed By: #### 5 8410-2 ####[facility] LABORATORYCLIA [id number] [address] OF [facility] WBC (Bld) [#/Vol] 17.70 10*3/uL High 3.70-11.00 [facility] Comment on above: Order Comment: Speci men Type: BLOOD SPECIMENOrdering Facility: [facility] Address: [address] [place] [address] Performed By: #### 5 8410-2 ####[facility] LABORATORYCLIA [id number] [address] [place] BLOOD TYPEon 022 ABO A Normal [facility] Comment on above: Order Comment: Speci men Type: BLOOD SPECIMENOrdering Facility: [facility] Address: [address] [place] [address] Performed By: #### C ONABO ####[facility] BLOOD BANKCLIA [id number] [address] Rh Nom (Bld) Positive Normal [facility] Comment on above: Order Comment: Speci men Type: BLOOD SPECIMENOrdering Facility: [facility] Address: [address] [place] [address] Performed By: #### C ONABO ####[facility] BLOOD BANKCLIA [id number] [place] [address] [place] CONSULTon 10-28-2021 CONSULT Normal [facility] CONSULT Normal [facility] CONSULT PROGon 10-28-2021 CONSULT PROG Normal [facility] CT ABD/PEL W IVCONon 022 CT ABD/PEL W IVCON Invalid Interpretation Code [facility] CT BRAIN WO IVCONon 10-29-19 CT BRAIN WO IVCON Normal [facility] CT BRAIN WO IVCON Normal [facility] CT CERVICAL SPINE WO IVCONon 10-28-2021 CT CERVICAL SPINE WO IVCON Normal [facility] CT CHEST W IVCONon CT CHEST W IVCON Invalid Interpretation Code [facility] CT LUMBAR SPINE W RECON DATA -NBon 10-28-2021 CT LUMBAR SPINE W RECON DATA -NB Invalid Interpretation Code [facility] CT T-SPINE W RECON DATA -NBo n 10-28-2021 CT T-SPINE W RECON DATA -NB Invalid Interpretation Code [facility] CTA HEAD WO/W IVCONon 2021 CTA HEAD WO/W IVCON Normal [facility] Comprehensive metabolic 2000 panelon 10-28-2021 Albumin [Mass/Vol] 4.0 g/dL Normal 3.9-4.9 [facility] Comment on above: Order Comment: Speci men Type: BLOOD SPECIMENOrdering Facility: [facility] Address: [address] [place] [address] Performed By: #### 2 777-1, 04351-7, ####[facility] LABORATORYCLIA [id number] [place] [address] [place] ALP [Catalytic activity/Vol] 68 U/L Normal 34-123 [facility] Comment on above: Order Comment: Speci men Type: BLOOD SPECIMENOrdering Facility: [facility] Address: [address] [place], [place] [id number] Performed By: #### 2 777-1, 29592-8, ####[facility] LABORATORYCLIA [id number] [address] STATES OF [facility] ALT With P-5'-P [Catalytic activity/Vol] 11 U/L Normal 7-38 [facility] Comment on above: Order Comment: Speci men Type: BLOOD SPECIMENOrdering Facility: [facility] Address: [address] [place] [address] Performed By: #### 2 777-1, 73558-2, ####[facility] LABORATORYCLIA [id number] [address] STATES OF [facility] Anion gap [Moles/Vol] 17 mmol/L Normal 9-18 [facility] Comment on above: Order Comment: Speci men Type: BLOOD SPECIMENOrdering Facility: [facility] Address: [address] [place] [address] Performed By: #### 2 777-1, , ####[facility] LABORATORYCLIA [id number] [address] OF [facility] AST With P-5'-P [Catalytic activity/Vol] 15 U/L Normal 13-35 [facility] Comment on above: Order Comment: Speci men Type: BLOOD SPECIMENOrdering Facility: [facility] Address: [address] [place] [address] Performed By: #### 2 777-1, , ####[facility] LABORATORYCLIA [id number] [address] STATES OF [facility] Bilirubin [Mass/Vol] 0.2 mg/dL Normal 0.2-1.3 [facility] Comment on above: Order Comment: Speci men Type: BLOOD SPECIMENOrdering Facility: [facility] Address: [address] [place] [address] Performed By: #### 2 777-1, 39312-7, ####[facility] LABORATORYCLIA [id number] [address] OF [facility] Calcium [Mass/Vol] 7.7 mg/dL Low 8.5-10.2 [facility] Comment on above: Order Comment: Speci men Type: BLOOD SPECIMENOrdering Facility: [facility] Address: [address] [place] [address] Performed By: #### 2 777-1, , ####[facility] LABORATORYCLIA [id number] [place] [address] [place] Chloride [Moles/Vol] 106 mmol/L High 97-105 [facility] Comment on above: Order Comment: Speci men Type: BLOOD SPECIMENOrdering Facility: [facility] Address: [address] [place] [address] Performed By: #### 2 777-1, , ####[facility] LABORATORYCLIA [id number] [address] STATES OF [place] CO2 [Moles/Vol] 20 mmol/L Low 22-30 [facility] Comment on above: Order Comment: Speci men Type: BLOOD SPECIMENOrdering Facility: [facility] Address: [address] [place] [address] Performed By: #### 2 777-1, , ####[facility] LABORATORYCLIA [id number] [address] STATES [place] Creatinine [Mass/Vol] 0.35 mg/dL Low 0.58-0.96 [facility] Comment on above: Order Comment: Speci men Type: BLOOD SPECIMENOrdering Facility: [facility] Address: [address] [place] [address] Performed By: #### 2 777-1, , ####[facility] LABORATORYCLIA [id number] [address] ESTIMATED GLOMERULAR FILTRATION RATE 113 mL/min/1.73m??? Normal >=60 [facility] Comment on above: Order Comment: Speci men Type: BLOOD SPECIMENOrdering Facility: [facility] Address: [address] [phone] Result Comment: Ameena mated Glomerular Filtration Rate [...] actual GFR. Performed By: #### 2 777-1, 39214-3, ####[facility]ALTHIA [id number] [place] [address] [place] Glucose [Mass/Vol] 150 mg/dL High 74-99 [facility] Comment on above: Order Comment: Lauren santana Type: BLOOD SPECIMENOrdering Facility: [facility] Address: [address] [place] [address] Result Comment: The [place] [employer] (ADA) provides guidance for cutoff [...] Standards of Medical Care in Diabetes 2016, [place] [employer]. Diabetes Care. 2016.39(Suppl 1). Performed By: #### 2 777-1, 46220-5, ####[facility] LABORATORYIA [id number] [place] [address] [place] Potassium [Moles/Vol] 3.5 mmol/L Low 3.7-5.1 [facility] Comment on above: Order Comment: Lauren santana Type: BLOOD SPECIMENOrdering Facility: [facility] Address: [address] [phone] Performed By: #### 2 777-1, , ####[facility] LABORATORYCLIA [id number] [place] [address] [place] Protein [Mass/Vol] 5.9 g/dL Low 6.3-8.0 [facility] Comment on above: Order Comment: Speci men Type: BLOOD SPECIMENOrdering Facility: [facility] Address: [address] [place] [address] Performed By: #### 2 777-1, , ####[facility] LABORATORYCLIA [id number] [place] [address] [place] Sodium [Moles/Vol] 143 mmol/L Normal 136-144 [facility] Comment on above: Order Comment: Speci men Type: BLOOD SPECIMENOrdering Facility: [facility] Address: [address] [place] [address] Performed By: #### 2 777-1, , ####[facility] LABORATORYCLIA [id number] [place] [address] [place] Urea nitrogen [Mass/Vol] 9 mg/dL Normal 7-21 [facility] Comment on above: Order Comment: Speci men Type: BLOOD SPECIMENOrdering Facility: [facility] Address: [address] [place] [address] Performed By: #### 2 777-1, , ####[facility] LABORATORYCLIA [id number] [place] [address] [place] Albumin [Mass/Vol] 3.6 g/dL Low 3.9-4.9 [facility] Comment on above: Order Comment: Speci men Type: BLOOD SPECIMENOrdering Facility: [facility] Address: [address] [place] [address] Performed By: #### 2 4323-8, 3040-3 ####[facility] LABORATORYCLIA [id number] [place] [address] [place] ALP [Catalytic activity/Vol] 70 U/L Normal 34-123 [facility] Comment on above: Order Comment: Speci men Type: BLOOD SPECIMENOrdering Facility: [facility] Address: [address] [address] Performed By: #### 2 4323-8, 3040-3 ####[facility] LABORATORYCLIA [id number] [address] STATES [place] ALT With P-5'-P [Catalytic activity/Vol] 12 U/L Normal 7-38 [facility] Comment on above: Order Comment: Speci men Type: BLOOD SPECIMENOrdering Facility: [facility] Address: [address] [place] [address] Performed By: #### 2 4323-8, 3039-3 ####[facility] LABORATORYCLIA [id number] [address] STATES OF [facility] Anion gap [Moles/Vol] 21 mmol/L High 9-18 [facility] Comment on above: Order Comment: Speci men Type: BLOOD SPECIMENOrdering Facility: [facility] Address: [address] [address] Performed By: #### 2 4323-8, 0-3 ####[facility] LABORATORYCLIA [id number] [address] OF [facility] AST With P-5'-P [Catalytic activity/Vol] 15 U/L Normal 13-35 [facility] Comment on above: Order Comment: Speci men Type: BLOOD SPECIMENOrdering Facility: [facility] Address: [address] [address] Performed By: #### 2 4323-8, 3040-3 ####[facility] LABORATORYCLIA [id number] [address] OF [facility] Bilirubin [Mass/Vol] 0.2 mg/dL Normal 0.2-1.3 [facility] Comment on above: Order Comment: Speci men Type: BLOOD SPECIMENOrdering Facility: [facility] Address: [address] [address] Performed By: #### 2 4323-8, 3040-3 ####[facility] LABORATORYCLIA [id number] [place] [address] [place] Calcium [Mass/Vol] 7.3 mg/dL Low 8.5-10.2 [facility] Comment on above: Order Comment: Speci men Type: BLOOD SPECIMENOrdering Facility: [facility] Address: [address] [place] [address] Performed By: #### 2 4323-8, 0-3 ####[facility] LABORATORYCLIA [id number] [place] [address] [place] Chloride [Moles/Vol] 96 mmol/L Low 97-105 [facility] Comment on above: Order Comment: Speci men Type: BLOOD SPECIMENOrdering Facility: [facility] Address: [address] [place] [address] Performed By: #### 2 4328, 3039-3 ####[facility] LABORATORYCLIA [id number] [address] STATES [place] CO2 [Moles/Vol] 16 mmol/L Low 22-30 [facility] Comment on above: Order Comment: Speci men Type: BLOOD SPECIMENOrdering Facility: [facility] Address: [address] [place] [address] Performed By: #### 2 4323-8, 0-3 ####[facility] LABORATORYCLIA [id number] [place] [address] [place] Creatinine [Mass/Vol] 0.37 mg/dL Low 0.58-0.96 [facility] Comment on above: Order Comment: Speci men Type: BLOOD SPECIMENOrdering Facility: [facility] Address: [address] [place] [address] Performed By: #### 2 4323-8, 3040-3 ####[facility] LABORATORYCLIA [id number] [address] OF [place] ESTIMATED GLOMERULAR FILTRATION RATE 111 mL/min/1.73m??? Normal >=60 [facility] Comment on above: Order Comment: Lauren santana Type: BLOOD SPECIMENOrdering Facility: [facility] Address: [address] [address] Result Comment: Ameena mated Glomerular Filtration Rate [...] GFR. Performed By: #### 2 4323-8, 3040-3 ####[facility] LABORATORYCLIA [id number] [place] [address] [place] Glucose [Mass/Vol] 154 mg/dL High 74-99 [facility] Comment on above: Order Comment: Lauren santana Type: BLOOD SPECIMENOrdering Facility: [facility] Address: [address] [place] [address] Result Comment: The [place] Diabetes Association (ADA) provides guidance for cutoff [...] Standards of Medical Care in Diabetes 2016, [place] [employer]. Diabetes Care. 2016.39(Suppl 1). Performed By: #### 2 4323-8, 3040-3 ####[facility] LABORATORYCLIA [id number] [place] [address] [place] Potassium [Moles/Vol] 2.8 mmol/L Low 3.7-5.1 [facility] Comment on above: Order Comment: Lauren santana Type: BLOOD SPECIMENOrdering Facility: [facility] Address: [address] [phone] Performed By: #### 2 4323-8, 3040-3 ####[facility] LABORATORYCLIA [id number] [address] Protein [Mass/Vol] 5.8 g/dL Low 6.3-8.0 [facility] Comment on above: Order Comment: Speci men Type: BLOOD SPECIMENOrdering Facility: [facility] Address: [address] [place] [address] Performed By: #### 2 4323-8, 3040-3 ####[facility] LABORATORYCLIA [id number] [address] STATES [facility] Sodium [Moles/Vol] 133 mmol/L Low 136-144 [facility] Comment on above: Order Comment: Speci men Type: BLOOD SPECIMENOrdering Facility: [facility] Address: [address] [place] [address] Performed By: #### 2 4323-8, 3040-3 ####[facility]ORATORYCLIA [id number] [address] Urea nitrogen [Mass/Vol] 9 mg/dL Normal 7-21 [facility] Comment on above: Order Comment: Speci men Type: BLOOD SPECIMENOrdering Facility: [facility] Address: [address] [place] [address] Performed By: #### 2 4323-8, 3040-3 ####[facility] LABORATORYCLIA [id number] [address] [place] ED NOTEon 10-28-2021 ED NOTE HNO ID: [id number] Author: Le Oliva RN Service: Nursing Author Type: Registered Nurse Type: ED Notes Filed: 10/28/2021 3:23 AM Note Text: Patient being taken to OR at this time Normal [facility] ED NOTE Normal [facility] ED NOTE HNO ID: [id number] Author: Le Oliva RN Service: Nursing Author Type: Registered Nurse Type: ED Notes Filed: 10/28/2021 1:33 AM Note Text: 01:32- 100mg Rocuronium given 01:33 - 100mg Fentanyl given Normal [facility] ED NOTE HNO ID: [id number] Author: Le Oliva RN Service: Nursing Author Type: Registered Nurse Type: ED Notes Filed: 10/28/2021 1:31 AM Note Text: Patient end tital 14, unable to protect airway. Patient will be intujbated Normal [facility] ED NOTE Normal [facility] ED NOTE HNO ID: [id number] Author: Le Oliva RN Service: Nursing Author Type: Registered Nurse Type: ED Notes Filed: 10/28/2021 4:43 AM Note Text: Dr. Landin contacted Dr. Greer (neurosurgery) [facility] ED NOTE HNO ID: [id number] Author: TR Cavazos Service: Emergency Medicine Author Type: Health Technology Support Analyst Type: ED Notes Filed: 10/28/2021 12:53 AM Note Text: STAT line was called at 12:37am for a Trauma 3; Moni Normal [facility] ED NOTE HNO ID: [id number] Author: Venancio Mitchell RN Service: ? Author Type: Registered Nurse Type: ED Notes Filed: 10/28/2021 12:48 AM Note Text: Bed: 08-ED Expected date: Expected time: Means of arrival: Comments: [place]- [facility] Normal [facility] ED PROV NOTEon 10-28-2021 ED PROV NOTE Normal [facility] Ethanol SerPl-mCncon 022 Ethanol [Mass/Vol] 116 mg/dL High <11 [facility] Comment on above: Order Comment: Speci men Type: BLOOD SPECIMENOrdering Facility: [facility] Address: [address] [place] [phone] Result Comment: Valu es > 80 mg/dL may indicate intoxication Performed By: #### 5 643-2 ####[facility] LABORATORYCLIA [id number] [place] [address] [place] HEMATOCRIT (HCT)on 2 Hematocrit (Bld) [Volume fraction] 32.4 % Low 36.0-46.0 [facility] Comment on above: Order Comment: Speci men Type: BLOOD SPECIMENOrdering Facility: [facility] Address: [address] [place] [address] Performed By: #### H CT, HGB ####[facility] LABORATORYCLIA [id number] [address] STATES OF [facility] Hematocrit (Bld) [Volume fraction] 25.5 % Low 36.0-46.0 [facility] Comment on above: Order Comment: Speci men Type: BLOOD SPECIMENOrdering Facility: [facility] Address: [address] [place] [address] Performed By: #### H CT, HGB ####[facility] LABORATORYCLIA [id number] [address] HEMOGLOBIN (HGB)on 2 Hemoglobin (Bld) [Mass/Vol] 10.5 g/dL Low 11.5-15.5 [facility] Comment on above: Order Comment: Speci men Type: BLOOD SPECIMENOrdering Facility: [facility] Address: [address] [place] [address] Performed By: #### H CT, HGB ####[facility] LABORATORYCLIA [id number] [address] STATES [place] Hemoglobin (Bld) [Mass/Vol] 8.1 g/dL Low 11.5-15.5 [facility] Comment on above: Order Comment: Speci men Type: BLOOD SPECIMENOrdering Facility: [facility] Address: [address] [place] [address] Performed By: #### H CT, HGB ####[facility] LABORATORYCLIA [id number] [address] STATES [place] HISTORY PHYSICALon 2 HISTORY PHYSICAL Normal [facility] Lipase SerPl-cCncon 10-29-19 22 Lipase [Catalytic activity/Vol] 11 U/L Low 16-61 [facility] Comment on above: Order Comment: Speci men Type: BLOOD SPECIMENOrdering Facility: [facility] Address: [address] [place], [place] [address] [place] [phone] Performed By: #### 2 4323-8, 3040-3 ####[facility] LABORATORYCLIA [id number] [place] [place] [id number] [facility] Magnesium SerPl-mCncon 10-28 Magnesium [Mass/Vol] 1.6 mg/dL Low 1.7-2.3 [facility] Comment on above: Order Comment: Speci men Type: BLOOD SPECIMENOrdering Facility: [facility] Address: [address] [place], [place] [address] Performed By: #### 2 777-1, 57620-1, 24487-9 ####[facility] LABORATORYCLIA [id number] [address] OPERATIVE NOon 10-28-2021 OPERATIVE NO Normal [facility] OPERATIVE NO Normal [facility] PT panel Coag (PPP)on 2021 INR Coag (PPP) [Relative time] 1.0 {INR} Normal 0.9-1.3 [facility] Comment on above: Order Comment: Speci esther Type: BLOOD SPECIMENOrdering Facility: [facility] Address: [address] [place], [place] [address] [address] Result Comment: Asriah min K Antagonist (VKA) Therapeutic Range: INR 2 to 3 (Target INR of 2.5)Note: For patients treated with VKA drugs, such as warfarin, the [place] [employer] 2012 Guideline recommends [...] 70: 252-289 Performed By: #### 3 4528-0, 55268-5 ####[facility] LABORATORYCLIA [id number] [place] [address] [place] PT Coag (PPP) [Time] 11.4 s Normal 9.7-13.0 [facility] Comment on above: Order Comment: Speci men Type: BLOOD SPECIMENOrdering Facility: [facility] Address: [address] [place] [address] Performed By: #### 3 4528-0, 58607-1 ####[facility] LABORATORYCLIA [id number] [address] [place] Phosphate SerPl-mCncon 10-28 Phosphate [Mass/Vol] 4.1 mg/dL Normal 2.7-4.8 [facility] Comment on above: Order Comment: Speci men Type: BLOOD SPECIMENOrdering Facility: [facility] Address: [address] [place] [address] Performed By: #### 2 777-1, 70427-8, 91677-2 ####[facility] LABORATORYCLIA [id number] [place] [address] [place] SARS-CoV-2 RNA Resp Ql NADEEM+p robeon 10-28-2021 SARS-CoV-2 (COVID-19) RNA NADEEM+probe Ql (Resp) COVID 19 RESULT: SARS-CoV-2 (Agent of COVID-19) Not Detected by RT-PCR or equivalent method. This test has been authorized by FDA under an Emergency Use Authorization (EUA). Normal [facility] Comment on above: Performed By: #### 9 4500-6 ####[facility] LABORATORYCLIA [id number] [place] [address] [place] STAPH AUREUS PCRon 2 S. aureus and MRSA panel NADEEM+probe (Nose) Normal Negative [facility] Comment on above: Order Comment: Speci men Type: SWAB OF INTERNAL NOSEOrdering Facility: [facility] Address: [address] [place] [address] Result Comment: Nega tive for Staphylococcus aureus by PCR.Negative for MRSA by PCR Performed By: #### S APCR ####[facility] LABORATORYCLIA [id number] [address] SURGICAL PATHOLOGYon 022 CASE REPORT Normal [facility] Comment on above: Order Comment: Speci men Type: BLOOD CLOT SAMPLEOrdering Facility: [facility] Address: [address] [place] [address] Result Comment: Surg ical Pathology Report Case: [id number] Provider: Bryce Greer MD Collected: 10/28/2021 04:26 AMOrdering Location[facility] Received: 10/28/2021 04:27 PM DepartmentPathologist: JNAAE Clarkpecimen: CLOT (DO NOT USE FOR BONE MARROW) Performed By: #### S ####[facility] LABORATORYCLIA [id number] [address] FINAL DIAGNOSIS Normal [facility] Comment on above: Order Comment: Speci men Type: BLOOD CLOT SAMPLEOrdering Facility: [facility] Address: [address] [place] [address] Result Comment: Clot , evacuation:- Blood elements and fibrin, consistent with clot (hematoma). Performed By: #### S ####[facility] LABORATORYCLIA [id number] [address] FINAL PERFORMING LAB Normal [facility] Comment on above: Order Comment: Speci men Type: BLOOD CLOT SAMPLEOrdering Facility: [facility] Address: [address] [place] [address] Result Comment: Diag nostic interpretation performed at [facility], [address] [place] [address] CLIA# [id number] Director: Dave Ramirez M.D. Performed By: #### S ####[facility] LABORATORYCLIA [id number] [address] GROSS DESCRIPTION Normal [facility] Comment on above: Order Comment: Speci men Type: BLOOD CLOT SAMPLEOrdering Facility: [facility] Address: [address] [place] [address] Result Comment: A. C LOT (DO NOT USE FOR BONE MARROW).Received in formalin labeled as clot multiple red, hemorrhagic soft fragments of clotted blood aggregating 9 x 7 x 2.3 cm. Vascular tissue is not present. Director Regulatory Affairs sections are submitted in 1 cassette.Gross examination performed at [facility], [address] [place], [place] [address]RSA October 29, 2021 2:09 PM Performed By: #### S ####[facility] [id number] [address] TEG PANEL INTERPon 2 INTERPRETATION(THROMBOGRA PH) Normal [facility] Comment on above: Order Comment: Speci men Type: BLOOD SPECIMENOrdering Facility: [facility] Address: [address] [place] [address] Result Comment: Perf orming Pathologist: Chelsea HolguinInterpretation: [...] TEG results. Performed By: #### T EGPNP ####[facility] LABORATORYCLIA [id number] [address] [place]#### [id number] ####[facility] LABCLIA [id number] [address] THROMBOGRAPH PANELon 03-13-2 022 Clot angle TEG (Bld) [Angle] 75.4 degrees High 47.0-74.0 [facility] Comment on above: Order Comment: Speci men Type: BLOOD SPECIMENOrdering Facility: [facility] Address: [address] [place] [address] Performed By: #### T EGPNP ####[facility] LABORATORYCLIA [id number] [address]#### [id number] ####[facility] LABCLIA [id number] [address] Clot Lysis 30 Min post maximum clot amplitude TEG (Bld) [Length fraction] 0.0 % Normal 0.0-8.0 [facility] Comment on above: Order Comment: Speci men Type: BLOOD SPECIMENOrdering Facility: [facility] Address: [address] [place] [address] Performed By: #### T EGPNP ####[facility] LABORATORYCLIA [id number] [address] STATES [facility]#### [id number] ####[facility] LABCLIA [id number] [address] [place] Clotting time TEG (Bld) 5.2 minutes Normal 4.0-10.0 [facility] Comment on above: Order Comment: Speci men Type: BLOOD SPECIMENOrdering Facility: [facility] Address: [address] [place] [address] Performed By: #### T EGPNP ####[facility] LABORATORYCLIA [id number] [address] [place]#### [id number] ####[facility] LABCLIA [id number] [address] [place] Coagulation index TEG Qn (Bld) 3.2 Normal -4.6-3.2 [facility] Comment on above: Order Comment: Speci men Type: BLOOD SPECIMENOrdering Facility: [facility] Address: [address] [place] [address] Result Comment: The Coagulation Index, a secondary parameter, is labeled by the psychiatric social worker supervisor as for research use only and is used per the psychiatric social worker supervisor's instructions. Its performance characteristics were determined by [facility]'s Pinky Clementina [facility] Pathology and Laboratory Medicine [place] in a manner consistent with CLIA requirements. This test has not been cleared by the U.S. Food and Drug Administration. Performed By: #### T EGPNP ####[facility] LABORATORYCLIA [id number] [address] STATES [facility]#### [id number] ####[facility] LABCLIA [id number] [address] [place] Maximum clot firmness TEG (Bld) [Length] 74.4 mm Normal 51.0-75.0 [facility] Comment on above: Order Comment: Speci men Type: BLOOD SPECIMENOrdering Facility: [facility] Address: [address] [place] [address] Performed By: #### T EGPNP ####[facility] LABORATORYCLIA [id number] [place] [address] [place]#### [id number] ####[facility] LABCLIA [id number] [place] [address] [place] TOX SCREEN ROUT URon 10-28-2 022 Amphetamines Confirm (U) [Mass/Vol] Positive Abnormal Negative [facility] Comment on above: Order Comment: Speci men Type: URINE SPECIMENOrdering Facility: [facility] Address: [address] [place] [address] Result Comment: Cuto ff threshold at 1000 ng/mL. Performed By: #### U TOX2 ####[facility] LABORATORYCLIA [id number] [address] OF [place] BARBITURATES, URINE Negative Normal Negative [facility] Comment on above: Order Comment: Speci men Type: URINE SPECIMENOrdering Facility: [facility] Address: [address] [place] [address] Result Comment: Cuto ff threshold at 200 ng/mL. Performed By: #### U TOX2 ####[facility]ORATORYCLIA [id number] [place] [address] [place] BENZODIAZEPINES, UR Negative Normal Negative [facility] Comment on above: Order Comment: Speci men Type: URINE SPECIMENOrdering Facility: [facility] Address: [address] [place] [address] Result Comment: Cuto ff threshold at 200 ng/mL. Performed By: #### U TOX2 ####[facility]ORATORYCLIA [id number] [address] [place] CANNABINOIDS,URINE Negative Normal Negative [facility] Comment on above: Order Comment: Speci men Type: URINE SPECIMENOrdering Facility: [facility] Address: [address] [place] [address] Result Comment: Cuto ff threshold at 50 ng/mL. Performed By: #### U TOX2 ####[facility]ORATORYCLIA [id number] [address] [place] Cocaine Ql (U) Negative Normal Negative [facility] Comment on above: Order Comment: Speci men Type: URINE SPECIMENOrdering Facility: [facility] Address: [address] [place] [address] Result Comment: Cuto ff threshold at 300 ng/mL. Performed By: #### U TOX2 ####[facility]ORATORYCLIA [id number] [place] [address] [place] Ethanol (U) [Mass/Vol] <11 Normal <11 [facility] Comment on above: Order Comment: Speci men Type: URINE SPECIMENOrdering Facility: [facility] Address: [address] [place] [address] Performed By: #### U TOX2 ####[facility]ATORYCLIA [id number] [address] Opiates Screen Ql (U) Negative Normal Negative [facility] Comment on above: Order Comment: Speci men Type: URINE SPECIMENOrdering Facility: [facility] Address: [address] [place] [address] Result Comment: Cuto ff threshold at 300 ng/mL. Performed By: #### U TOX2 ####[facility] LABORATORYCLIA [id number] [address] oxyCODONE cutoff Screen (U) [Mass/Vol] Negative Normal Negative [facility] Comment on above: Order Comment: Speci men Type: URINE SPECIMENOrdering Facility: [facility] Address: [address] [place] [address] Result Comment: Cuto ff threshold at 100 ng/mL. Performed By: #### U TOX2 ####[facility] LABORATORYCLIA [id number] [address] Phencyclidine Ql (U) Negative Normal Negativ e, Unable to assay due to interfering substance [facility] Comment on above: Order Comment: Speci men Type: URINE SPECIMENOrdering Facility: [facility] Address: [address] [place] [address] Result Comment: Cuto ff threshold at 25 ng/mL. Performed By: #### U TOX2 ####[facility] LABORATORYCLIA [id number] [address] OF [facility] TYPE AND SCREENon 10-28-2021 ABO A Normal [facility] Comment on above: Order Comment: Speci men Type: BLOOD SPECIMENOrdering Facility: [facility] Address: [address] [place] [address] Performed By: #### T SCR ####[facility] BLOOD BANKCLIA [id number] [address] HISTORICAL AB SCR STATUS Negative Normal [facility] Comment on above: Order Comment: Speci men Type: BLOOD SPECIMENOrdering Facility: [facility] Address: [address] [place] [place] [address] Performed By: #### T SCR ####[facility] BLOOD BANKCLIA [id number] [address] [place] Rh Nom (Bld) Positive Normal [facility] Comment on above: Order Comment: Speci men Type: BLOOD SPECIMENOrdering Facility: [facility] Address: [address] [place] [address] Performed By: #### T SCR ####[facility] BLOOD BANKCLIA [id number] [address] OF [facility] TYPE AND SCREEN EXPIRATION 10/31/2021 23:59 Normal [facility] Comment on above: Order Comment: Speci men Type: BLOOD SPECIMENOrdering Facility: [facility] Address: [address] [place] [address] Performed By: #### T SCR ####[facility] BLOOD BANKCLIA [id number] [address] OF [facility] XR CHEST 1V FRONTALon 2021 XR CHEST 1V FRONTAL Normal [facility] XR CHEST 1V FRONTAL Normal [facility] aPTT PPPon 10-28-2021 aPTT Coag (PPP) [Time] 25.6 s Normal 23.0-32.4 [facility] Comment on above: Order Comment: Speci men Type: BLOOD SPECIMENOrdering Facility: [facility] Address: [address] [place] [address] Performed By: #### 3 4528-0, 08714-4 ####[facility] LABORATORYCLIA [id number] [address] Absolute lymphocyte counton 10-27-2021 Lymphocytes Auto (Unsp spec) [#/Vol] 1.52 10*3/uL 0.83-4.[address] [facility] Work Phone: Basophil percentageon 2021 Basophils/100 WBC (Bld) 0.3 % 0-1 [facility] Work Phone: Chloride [Moles/Vol] 107 mmol/L 98-107 [facility] Work Phone: Eosinophils/100 WBC (Bld) 1.0 % 0-[address] [facility] Work Phone: Glucose [Mass/Vol] 126 mg/dL 74-106 [facility] Work Phone: Comment on above: Fasting Glucose resu lt greater than or equal to 126 mg/dL suggests DIABETES MELLITUS per A.D.A. criteria. Neutrophils (Bld) [#/Vol] 6.9 10*3/uL 2.0-7.[address] [facility] Work Phone: Neutrophils/100 WBC (Bld) 74.4 % 47-[address] [facility] Work Phone: Potassium [Moles/Vol] 3.5 mmol/L 3.5-5.1 [facility] Work Phone: Sodium [Moles/Vol] 139 mmol/L 136-145 [facility] Work Phone: [phone] WBC (Bld) [#/Vol] 9.2 10*3/uL 4.4-11.0 [facility] Work Phone: Blood erythrocytes count (nu mber/volume)on 10-27-2021 RBC (Bld) [#/Vol] 4.16 10*6/uL 4.2-5.4 [facility] Work Phone: Blood hemoglobin measurement (mass/volume)on 10-27-2021 Hemoglobin (Bld) [Mass/Vol] 13.4 g/dL 12.0-15.[address] [facility] Work Phone: [phone] Blood lymphocytes/100 leukoc yteson 10-27-2021 Lymphocytes/100 WBC (Bld) 16.5 % 19-[address] [facility] Work Phone: [phone] Blood manual differential co mment interpretation (narrative result)on 10-27-2021 Manual differential comment Kuldip (Bld) [Interp] SCANNED [facility] Work Phone: Blood monocytes/100 leukocyt eson 03-12-2022 Monocytes/100 WBC (Bld) 7.4 % 0-10 [facility] Work Phone: Blood platelet mean volumeon 10-27-2021 Platelet mean volume (Bld) [Entitic vol] 8.9 fL 6.2-12.[address] [facility] Work Phone: Determination of erythrocyte mean corpuscular volume (MCV)on 10-27-2021 MCV (RBC) [Entitic vol] 98.3 fL 81-99 [facility] Work Phone: Hematocrit Auto (Bld) [Volum e fraction]on 10-27-2021 Hematocrit (Bld) [Volume fraction] 40.9 % 37-[address] [facility] Work Phone: INR in Blood by Coagulation assayon 10-27-2021 INR Coag (Bld) [Relative time] 1.2 {INR} [facility] Work Phone: Laboratory - Chemistry and C hemistry - challengeon 10-27-2021 CO2 [Moles/Vol] 21.0 mmol/L 21.0-32.[address] [facility] Work Phone: Urea nitrogen/Creatinine [Mass ratio] 18.7 mg/mg 10-[address] [facility] Work Phone: Laboratory - Coagulationon 0 10-27-2021 aPTT Coag (Bld) [Time] 31.8 s 24.1-36.2 breanna [facility] Work Phone: PT Coag (PPP) [Time] 14.1 s 11.7-14.[address] [facility] Work Phone: Laboratory - Hematology and Cell countson 10-27-2021 Erythrocyte distribution width (RBC) [Entitic vol] 66.9 fL 35.1-43.9 [facility] Work Phone: Erythrocyte distribution width (RBC) [Ratio] 18.5 % 11.6-14.[address] [facility] Work Phone: Immature granulocytes/100 WBC (Bld) 0.400 % 0.0-0.[address] [facility] Work Phone: Comment on above: IG% - Immature Granu locytes (promyelocytes, myelocytes and metamyelocytes) > 1% indicates that a LEFT SHIFT is Present. MCH (RBC) [Entitic mass] 32.2 pg 27.0-32.[address] [facility] Work Phone: Nucleated RBC/100 WBC (Bld) [Ratio] 0 % 0-[address] [facility] Work Phone: MCHC Auto (RBC) [Mass/Vol]on 10-27-2021 MCHC (RBC) [Mass/Vol] 32.8 g/dL 32-36 [facility] Work Phone: No Panel Informationon 10-27 Ethyl Alcohol Level 177.0 mg/dL [facility] Work Phone: Comment on above: The serum:whole bloo d ethanol ratio is approximately 1.14and varies slightly with hematocrit. Medical Alcohol reference interval and critical value innon-tolerant individuals; 50 - 100 Impairment 100 Intoxication 100 - 250 Severe Poisoning 250 - 400 Deep/possible fatal coma Estimated Creatinine Clearance Calc 45.78 ml/min [facility] Work Phone: Estimated GFR (MDRD) Amer 147 mL/min >[address] [facility] Work Phone: Comment on above: GFR Calc Estimated GFR (MDRD) Non-Af Amer 121 mL/min >[address] [facility] Work Phone: Comment on above: Non- GFR Calc Platelets bldon 10-27-2021 Platelets (Bld) [#/Vol] 273 10*3/uL 150-[address] [facility] Work Phone: Serum or plasma calcium joaquin urement (mass/volume)on 10-27-2021 Calcium [Mass/Vol] 8.7 mg/dL 8.5-10.1 [facility] Work Phone: Serum or plasma creatinine m easurement (mass/volume)on 10-27-2021 Creatinine [Mass/Vol] 0.54 mg/dL 0.55-1.02 [facility] Work Phone: Comment on above: The validity of the calculated GFR & GFRAA in patients over 70 years has not been determined. Clinical correlation is essential. Serum or plasma urea nitroge n measurement (mass/volume)on 10-27-2021 Urea nitrogen [Mass/Vol] 10 mg/dL 7-[address] [facility] Work Phone: Thin prep Papanicolaou smear with manual screeningon 10-27-2021 Thin prep Papanicolaou smear with manual screening 11 5-[address] [facility] Work Phone: Laboratory - Hematology and Cell countson 09-11-2021 Anisocytosis Ql (Bld) 1+ [facility] Work Phone: Ovalocyte detectionon 2021 Ovalocytes LM Ql (Bld) RARE [facility] Blood platelet adequacy dete ction by light microscopyon 06-11-2021 Platelets LM Ql (Bld) ADEQUATE ADEQ [facility] [employer] mix RAST testo n 06-11-2021 Microcytosis 1+ [facility] Hypochromatic red blood cell detectionon 06-11-2021 Hypochromia Ql (Bld) 1+ [facility] Thin prep Papanicolaou smear with manual screeningon 06-11-2021 Thin prep Papanicolaou smear with manual screening 1+ [facility] Hemoglobin (Reticulocytes) [ Entitic mass]on 05-07-2021 Reticulocyte Hemoglobin Equivalent 21.9 pg Low 30-[address] [facility] Hemoglobin in reticulocytes (mass per reticulocyte)on 05-07-2021 Hemoglobin (Reticulocytes) [Entitic mass] 21.9 pg Low 30-[address] [facility] No Panel Informationon 05-07 Immature Reticulocyte Fraction 32.80 % High 3.00-15.[address] [facility] Reticulocyte Count 1.57 % High 0.5-1.5 [facility] 1.57 % High 0.5-1.[address] [facility] 32.80 % High 3.00-15.[address] [facility] Glucose Meteron 10-21-2019 Glucose [Mass/Vol] 160 mg/dL High 70-99 [facility] Comment on above: Result Comment: TIARA Fischer OTIFIED Performed By: #### G LMET #### [facility] [address] [address] Cult Urineon 10-08-2019 Cult Urine Test performed at [facility] ORGANISM: Normal Urogenital Hyun (ID: 1) 5,000-<10,000 CFU/ml Normal [facility] Comment on above: Performed By: #### C _URI #### [place] [address] Glucose Meteron 07-05-2019 Glucose [Mass/Vol] 175 mg/dL High 70-99 [facility] Comment on above: Performed By: #### G LMET #### [place] [address] Cult Urineon 06-29-2019 Cult Urine Test performed at [facility] ORGANISM: *Klebsiella pneumoniae (ID: 1) >100,000 CFU/ml CLSI breakpoints for therapy of uncomplicated UTI due to E. coli, K. pneumoniae or P. mirabilis were applied and may be used to predict the activity of oral agents (cefdinir, cefpodoxime, cefuroxime, and cephalexin). Normal [facility] Comment on above: Performed By: #### C _URI #### [place] [address] Cytology, Medicalon 04-23-20 Cytology, Medical Test performed at [place] [address] NAME: KAELYN POWERS REQUESTING: CALVIN DOHERTY M.D. DIAGNOSIS VOIDED URINE - NEGATIVE FOR HIGH GRADE UROTHELIAL CARCINOMA. PREDOMINANTLY SQUAMOUS CONTAMINANTS. SPECIMEN: A) URN, URINE CYTOLOGY VOIDED Description: Materials Prepared & Examined: Volume: ......... 25 # of Monolayers: .......... 1 Color: ............ Yellow # of Slides: ................. Clear: ............. Y 1 CLINICAL INFORMATION: MASS OF URETHRA. Electronically Signed: 04/26/2019 Screened by: ROD ARREDONDO([facility] [place] Signed Out by: IRAIDA BECK M.D. Printed on: April 26, 2019 Page 1 of 1 Normal [facility] Comment on above: Performed By: #### C YTOM #### [place] [address] BUN Bloodon 04-07-2019 Urea nitrogen [Mass/Vol] 12 mg/dL Normal 7-18 [facility] Comment on above: Performed By: #### M BUN #### [place] [address] Creatinine Bloodon 9 Creatinine [Mass/Vol] 0.54 mg/dL Normal 0.51-0.95 [facility] Comment on above: Performed By: #### M CREA #### [place] [address] MDRD eGFRon 04-07-2019 GFR/1.73 sq M predicted among non-blacks MDRD (S/P/Bld) [Vol rate/Area] mL/min/{1.73_m2} Normal >60mL/min/1.7 3m2 [facility] Comment on above: Result Comment: If t he patient is , multiply the result by 1.210. Performed By: #### M GFR #### [place] [address] MRI FEMALE URETHRA WO/W IVCO Non 04-07-2019 MRI FEMALE URETHRA WO/W IVCON * * *Final Report* * * DATE OF EXAM: Apr 07 2019 2:36PM [facility] 0716 - MRI FEMALE URETHRA WO/W IVCON [...] This study was tailored as a small xnbxu-dx-dfsl study for evaluation of the female urethra. [...] Findings may be due to chronic inflammation. 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 Transcribe Date/Time: Apr 14 2019 2:48P Dictated by : LETICIA GOMEZ MD This examination was interpreted and the report reviewed and electronically signed by: LETICIA GOMEZ MD on Apr 14 2019 3:18PM EST Normal [facility] Lab Report: Bilirubin, Direc ton 12-30-2016 Bilirubin.direct mass conc 0.13 mg/dL Invalid Interpretation Code 0.00-0.30 [facility] Work Phone: [phone] Lab Report: CBC W/Diff, Auto matedon 12-30-2016 Basophils/100 leukocytes 0.4 % Invalid Interpretation Code 0-1 [facility] Work Phone: [phone] Basophils/100 WBC (Bld) 0.4 % 0-1 [facility] Work Phone: [phone] Eosinophils/100 leukocytes 1.7 % Invalid Interpretation Code 0-5 [facility] Work Phone: [phone] Eosinophils/100 WBC (Bld) 1.7 % 0-5 [facility] Work Phone: [phone] Erythrocyte distribution width Ratio (RBC) 13.5 % 11.6-14.6 [facility] Work Phone: [phone] Erythrocyte distribution width Ratio (RBC) 46.4 fL High 35.1-43.9 [facility] Work Phone: [phone] Erythrocytes (RBC) 4.76 10*6/uL Invalid Interpretation Code 4.2-5.4 [facility] Work Phone: [phone] Hematocrit (HCT) 45.9 % Invalid Interpretation Code 37-47 [facility] Work Phone: [phone] Hematocrit Volume Fraction (Bld) 45.9 % 37-47 [facility] Work Phone: [phone] Hemoglobin mass conc (Bld) 15.6 g/dL High 12.0-15.0 [facility] Work [phone] Immature granulocytes #/vol (Bld) 0.200 % 0.0-0.9 [facility] Work Phone: [phone] immature granulocytes, percentage of total cells, blood 0.200 % Invalid Interpretation Code 0.0-0.9 [facility] Work Phone: [phone] Lymphocytes 2.32 X10 3/UL Invalid Interpretation Code 0.83-4.51 [facility] Work Phone: [phone] Lymphocytes #/vol (Bld) 2.32 X10 3/UL 0.83-4.51 [facility] Work Phone: [phone] Lymphocytes/100 leukocytes 27.6 % Invalid Interpretation Code 19-41 [facility] Work Phone: [phone] Lymphocytes/100 WBC (Bld) 27.6 % 19-41 [facility] Work Phone: [phone] MCH 32.8 pg High 27.0-32.0 [facility] Work Phone: [phone] MCH Entitic mass (RBC) 32.8 pg High 27.0-32.0 [facility] Work Phone: [phone] MCHC 34.0 G/GL Invalid Interpretation Code 32-36 [facility] Work Phone: [phone] MCHC mass conc (RBC) 34.0 G/GL 32-[address] [facility] Work Phone: [phone] MCV 96.4 fL Invalid Interpretation Code 81-99 [facility] Work Phone: [phone] MCV Entitic volume (RBC) 96.4 fL 81-99 [facility] Work Phone: [phone] Monocytes/100 leukocytes 9.1 % Invalid Interpretation Code 0-10 [facility] Work Phone: Monocytes/100 WBC (Bld) 9.1 % 0-10 [facility] Work Phone: [phone] neutrophil count, blood 5.1 X10 3/UL Invalid Interpretation Code 2.0-7.7 [facility] Work Phone: [phone] Neutrophils #/vol (Bld) 5.1 X10 3/UL 2.0-7.7 [facility] Work Phone: [phone] Neutrophils/100 leukocytes 61.0 % Invalid Interpretation Code 47-70 [facility] Work Phone: [phone] Neutrophils/100 WBC (Bld) 61.0 % 47-70 [facility] Work Phone: [phone] Platelet mean volume Entitic volume (Bld) 9.7 fL 6.2-12.0 [facility] Work Phone: [phone] Platelets 246 10*3/mm3 Invalid Interpretation Code 150-450 [facility] Work Phone: [phone] Platelets #/vol (Bld) 246 10*3/mm3 150-450 [facility] Work Phone: [phone] PMV by Bonnie 9.7 fL Invalid Interpretation Code 6.2-12.0 [facility] Work Phone: [phone] RBC #/vol (Bld) 4.76 10*6/uL 4.2-5.4 [facility] Work Phone: [phone] RDW-CA 13.5 % Invalid Interpretation Code 11.6-14.6 [facility] Work Phone: [phone] red blood cell distribution width, size density 46.4 fL High 35.1-43.9 [facility] Work Phone: [phone] WBC #/vol (Bld) 8.4 10*3/uL 4.4-11.0 [facility] Work Phone: [phone] WBC (Leukocytes) 8.4 10*3/uL Invalid Interpretation Code 4.4-11.0 [facility] Work Phone: [phone] Lab Report: [facility] 12-30-2016 Albumin mass conc 3.5 g/dL Invalid Interpretation Code 3.4-5.0 [facility] Work Phone: [phone] Albumin/Globulin mass ratio 1.1 {ratio} Invalid Interpretation Code 0.9-2.4 [facility] Work Phone: [phone] Alkaline phosphatase (ALP) 63 U/L Invalid Interpretation Code 45-117 [facility] Work Phone: [phone] ALP enzyme act/vol (Bld) 63 U/L 45-117 [facility] Work Phone: [phone] ALT enzyme act/vol 31 U/L Invalid Interpretation Code 12-78 [facility] Work Phone: [phone] Anion gap 11 mmol/L Invalid Interpretation Code -15 [facility] Work Phone: [phone] Anion gap molar conc 11 mmol/L - [facility] Work Phone: [phone] AST enzyme act/vol 24 U/L Invalid Interpretation Code 15-37 [facility] Work Phone: [phone] Bilirubin mass conc 0.40 mg/dL Invalid Interpretation Code 0.20-1.00 [facility] Work Phone: [phone] Calcium mass conc 8.4 mg/dL Low 8.5-10.1 [facility] Work Phone: [phone] Chloride molar conc 103 mmol/L Invalid Interpretation Code 98-107 [facility] Work Phone: [phone] CO2 25.0 mmol/L Invalid Interpretation Code 21.0-32.0 [facility] Work Phone: [phone] CO2 ppres (BldV) 25.0 mmol/L 21.0-32.0 [facility] Work Phone: [phone] Creatinine mass conc 0.66 mg/dL Invalid Interpretation Code 0.55-1.02 [facility] Work Phone: [phone] eGFR (non-black) 117 mL/min/{1.73_m2} Invalid Interpretation Code >60 [facility] Work Phone: [phone] EST GFR - AA 117 mL/min >60 [facility] Work Phone: [phone] GFR/1.73 sq M predicted among non-blacks MDRD vol rate/area (S/P/Bld) 96 mL/min/{1.73_m2} Invalid Interpretation Code >60 [facility] Work Phone: [phone] Globulin 3.3 g/dL Invalid Interpretation Code 2.3-3.5 [facility] Work Phone: [phone] Globulin mass conc (S) 3.3 g/dL 2.3-3.5 [facility] Work Phone: [phone] Glucose 159 mg/dL High 70-110 [facility] Work Phone: [phone] Glucose mass conc 159 mg/dL High 70-110 [facility] Work Phone: [phone] Potassium molar conc 4.2 mmol/L Invalid Interpretation Code 3.5-5.1 [facility] Work Phone: [phone] Protein mass conc 6.8 g/dL Invalid Interpretation Code 6.4-8.2 [facility] Work Phone: [phone] Sodium molar conc 139 mmol/L Invalid Interpretation Code 136-145 [facility] Work Phone: [phone] Urea nitrogen mass conc 14 mg/dL Invalid Interpretation Code 7-18 [facility] Work Phone: [phone] Urea nitrogen/Creatinine mass ratio 21.2 RATIO High 10-20 [facility] Work Phone: [phone]) Lab Report: Lipid Profileon 12-30-2016 Cholesterol in HDL mass conc 35 mg/dL Low [facility] Work Phone: [phone] Cholesterol in LDL mass conc 84 mg/dL Invalid Interpretation Code 0-130 [facility] Work Phone: [phone] Cholesterol mass conc 177 mg/dL Invalid Interpretation Code 200 [facility] Work Phone: [phone] Lipoprotein.pre-beta mass conc 58 mg/dL High 5-40 [facility] Work Phone: [phone] Triglyceride mass conc 292 mg/dL High [facility] Work Phone: [phone]) Lab Report: Urinalysis, Rout ine (Dipstick)on 12-30-2016 Albumin Ql (U) 100 High Negative [facility] Work Phone: [phone] Bilirubin Ql (U) Negative Negative [facility] Work Phone: [phone] Clarity Nom (U) Sl. Cloudy Invalid Interpretation Code Clear [facility] Work Phone: [phone] Color Nom (U) Yellow Invalid Interpretation Code Yellow [facility] Work Phone: [phone] Glucose Ql (U) Normal mg/dl Invalid Interpretation Code Normal [facility] Work Phone: [phone] Ketones mass conc (U) Negative Negative [facility] Work Phone: [phone] Leukocyte esterase Test strip Ql (U) 500 High Negative [facility] Work Phone: [phone] Nitrite Urine Negative Invalid Interpretation Code Negative [facility] Work Phone: [phone] Occult Blood, urine 150 High Negative [facility] Work Phone: [phone] OCCULT BLOOD-UR 150 High Negative [facility] Work Phone: [phone] pH (U) 6.0 [pH] 5.0 - 8.0 [facility] Work Phone: [phone] Specific gravity Refractometry Relative Density (U) 1.025 Invalid Interpretation Code 1.002-1.030 [facility] Work Phone: [phone] Urine, bilirubin presence Negative Invali d Interpretation Code Negative [facility] Work Phone: [phone] Urine, ketones presence Negative Invalid Interpretation Code Negative [facility] Work Phone: [phone] Urine, pH 6.0 [pH] Invalid Interpretation Code 5.0 - 8.0 [facility] Work Phone: [phone] Urine, protein 100 mg/dL High Negative [facility] Work Phone: [phone] urobilinogen, urine, by dipstick Normal mg/dl Invalid Interpretation Code Normal [facility] Work Phone: [phone]) Lab Report: Vitamin D,25 Hyd roxyon 12-30-2016 vitamin D 25-hydroxy, serum 15.4 ng/mL Invalid Interpretation Code [facility] Work Phone: [phone] Vitamin D 25-OH 15.4 ng/mL [facility] Work Phone: [phone] Office Visiton 12-05-2016 Dietary management education, guidance, and counseling (procedure) yes Invalid Interpretation Code [facility] Work Phone: [phone] Documentation of current medications (procedure) Done Invalid Interpretation Code [facility] Work Phone: [phone] Protein mass conc Done [facility] Work Phone: [phone] Protein mass conc yes [facility] Group Work Phone: [phone] Smoking cessation education (procedure) yes Invalid Interpretation Code [facility] Work Phone: [phone] Tobacco smoking status NHIS Current every day smoker [facility] Work Phone: [phone] Tobacco use CPHS Current every day smoker Invalid Interpretation Code [facility] Work Phone: [phone] Office Visiton 10-18-2015 cardiac risk group C Invalid Interpretation Code [facility] Work Phone: [phone] General cardiovascular disease 10Y risk [#] [place].Kb'Marialuisa N/A Invalid Interpretation Code [facility] Work Phone: [phone] Clinical Lists Update: Prelo load checker 10-17-2015 Anion gap molar conc 5 mmol/L [facility] Work Phone: [phone] Calcium mass conc 8.2 mg/dL Low [facility] Work Phone: [phone] Chloride molar conc 107 mmol/L [facility] Work Phone: [phone] CO2 ppres (BldV) 27 mmol/L [facility] Work Phone: [phone] Creatinine mass conc 0.68 mg/dL [facility] Work Phone: [phone] Glucose mass conc 147 mg/dL High [facility] Work Phone: [phone] Potassium molar conc 4.2 mmol/L [facility] Work Phone: [phone] Sodium molar conc 139 mmol/L [facility] Work Phone: [phone] Urea nitrogen mass conc 11 mg/dL [facility] Work Phone: [phone] Urea nitrogen/Creatinine mass ratio 16.2 mg/mg [facility] Work Phone: [phone] Clinical Lists Update: Prelo load checker 10-09-2015 Cholesterol in HDL mass conc 34 mg/dL [facility] Work Phone: [phone] Cholesterol mass conc 185 mg/dL [facility] Work Phone: [phone] Left ventricular Ejection fraction 65 % Invalid Interpretation Code [facility] Work Phone: [phone] Triglyceride mass conc 452 mg/dL [facility] Work Phone: [phone] Culture, urine Bacteria identified Cx Nom (U) Pseudomonas aeroginosa [facility] Work Phone: Bacteria identified Cx Nom (U) Presumptive E. coli [facility] Work Phone: Vital Signs Date Time Vital Sign Value Performing Clinician Faci lity 06-07-2025 11:00-0400 Body height 154.[address] Sharif Christianson MD Work Phone: [facility] 06-07-2025 11:00-0400 Body mass index (BMI) [Ratio] 35 kg/m2 Dr. Sharif Christianson MD Work Phone: [facility] 06-07-2025 11:00-0400 Body temperature 98 [degF] Dr. Sharif Christianson MD Work Phone: [facility] 06-07-2025 11:00-0400 Body weight 84.[address] Sharif Christianson MD Work Phone: [facility] 06-07-2025 11:00-0400 Diastolic blood pressure 73 mm[Hg] Dr. Sharif Christianson MD Work Phone: [facility] 06-07-2025 11:00-0400 Heart rate 67 /min Dr. Sharif Christianson MD Work Phone: [facility] 06-07-2025 11:00-0400 Respiratory rate 18 /min Dr. Sharif Christianson MD Work Phone: [facility] 06-07-2025 11:00-0400 SaO2% (BldA) [Mass fraction] 95 % Dr. Sharif Christianson MD Work Phone: 9(895)916-439359 [place] [address] 06-07-2025 11:00-0400 Systolic blood pressure 117 mm[Hg] Dr. Sharif Christianson MD Work Phone: 1(280)607-657608 [place] [address] 06-01-2025 14:22-0400 Body temperature 97.8 [degF] Dr. Sharif Christianson MD Work Phone: 2(805)761-535808 [place] [address] 06-01-2025 14:22-0400 Body weight 86.[address] Sharif Christianson MD Work Phone: 7(665)170-521308 [place] [address] 06-01-2025 14:22-0400 Diastolic blood pressure 68 mm[Hg] Dr. Sharif Christianson MD Work Phone: 4(401)213-561508 [place] [address] 06-01-2025 14:22-0400 Heart rate 76 /min Dr. Sharif Christianson MD Work Phone: 9(569)293-270908 [place] [address] 06-01-2025 14:22-0400 Respiratory rate 14 /min Dr. Sharif Christianson MD Work Phone: 2(841)347-480908 [place] [address] 06-01-2025 14:22-0400 SaO2% (BldA) [Mass fraction] 97 % Dr. Sharif Christianson MD Work Phone: 3(188)099-752408 [place] [address] 06-01-2025 14:22-0400 Systolic blood pressure 113 mm[Hg] Dr. Sharif Christianson MD Work Phone: 3(360)128-404259 [place] [address] 05-17-2025 13:13-0400 Body height 154.[address] Sharif Christianson MD Work Phone: 5(868)652-992808 [place] [address] 05-17-2025 13:09-0400 Body mass index (BMI) [Ratio] 35.6 kg/m2 Dr. Sharif Christianson MD Work Phone: 9(003)327-253808 [place] [address] 05-17-2025 13:09-0400 Body temperature 97.6 [degF] Dr. Sharif Christianson MD Work Phone: 8(407)877-449808 [place] [address] 05-17-2025 13:09-0400 Body weight 85.[address] Sharif Christianson MD Work Phone: 5(491)730-153908 [place] [address] 05-17-2025 13:09-0400 Diastolic blood pressure 71 mm[Hg] Dr. Sharif Christianson MD Work Phone: 0(434)582-579408 [place] [address] 05-17-2025 13:09-0400 Heart rate 67 /min Dr. Sharif Christianson MD Work Phone: 7(672)206-532108 [place] [address] 05-17-2025 13:09-0400 Respiratory rate 16 /min Dr. Sharif Christianson MD Work Phone: 7(223)447-854408 [place] [address] 05-17-2025 13:09-0400 SaO2% (BldA) [Mass fraction] 94 % Dr. Sharif Christianson MD Work Phone: 4(491)367-266608 [place] [address] 05-17-2025 13:09-0400 Systolic blood pressure 118 mm[Hg] Dr. Sharif Christianson MD Work Phone: 3(006)922-704008 [place] [address] 04-26-2025 10:59-0400 Body height 154.[address] Sharif Christianson MD Work Phone: 2(211)013-958508 [place] [address] 04-26-2025 10:59-0400 Body mass index (BMI) [Ratio] 35 kg/m2 Dr. Sharif Christianson MD Work Phone: 1(794)991-965708 [place] [address] 04-26-2025 10:59-0400 Body temperature 97.8 [degF] Dr. Sharif Christianson MD Work Phone: 6(594)645-184608 [place] [address] 04-26-2025 10:59-0400 Body weight 84.[address] Sharif Christianson MD Work Phone: 6(781)233-261608 [place] [address] 04-26-2025 10:59-0400 Diastolic blood pressure 67 mm[Hg] Dr. Sharif Christianson MD Work Phone: 8(798)173-770608 [place] [address] 04-26-2025 10:59-0400 Heart rate 63 /min Dr. Sharif Christianson MD Work Phone: 6(536)239-103408 [place] [address] 04-26-2025 10:59-0400 Respiratory rate 16 /min Dr. Sharif Christianson MD Work Phone: 6(900)239-543008 [place] [address] 04-26-2025 10:59-0400 SaO2% (BldA) [Mass fraction] 96 % Dr. Sharif Christianson MD Work Phone: 4(834)470-712308 [place] [address] 04-26-2025 10:59-0400 Systolic blood pressure 106 mm[Hg] Dr. Sharif Christianson MD Work Phone: 3(626)486-829308 [place] [address] 04-05-2025 15:14-0400 Diastolic blood pressure 51 mm[Hg] Dr. Sharif Christianson MD Work Phone: 1(871)019-144208 [place] [address] 04-05-2025 15:14-0400 Heart rate 67 /min Dr. Sharif Christianson MD Work Phone: 2(643)669-641708 [place] [address] 04-05-2025 15:14-0400 Respiratory rate 16 /min Dr. Sharif Christianson MD Work Phone: 7(155)422-297208 [place] [address] 04-05-2025 15:14-0400 Systolic blood pressure 118 mm[Hg] Dr. Sharif Christianson MD Work Phone: 2(074)464-452608 [place] [address] 04-05-2025 12:31-0400 Body height 154.[address] Sharif Christianson MD Work Phone: 9(265)507-504308 [place] [address] 04-05-2025 12:31-0400 Body mass index (BMI) [Ratio] 35.7 kg/m2 Dr. Sharif Christianson MD Work Phone: 2(614)089-965408 [place] [address] 04-05-2025 12:31-0400 Body temperature 97.8 [degF] Dr. Sharif Christianson MD Work Phone: 7(694)106-158208 [place] [address] 04-05-2025 12:31-0400 Body weight 85.[address] Sharif Christianson MD Work Phone: 5(300)384-346708 [place] [address] 04-05-2025 12:31-0400 Diastolic blood pressure 74 mm[Hg] Dr. Sharif Christianson MD Work Phone: [facility] 04-05-2025 12:31-0400 Heart rate 69 /min Dr. Sharif Christianson MD Work Phone: 0(824)530-314659 [place] [address] 04-05-2025 12:31-0400 Respiratory rate 16 /min Dr. Sharif Christianson MD Work Phone: 7(071)496-113008 [place] [address] 04-05-2025 12:31-0400 SaO2% (BldA) [Mass fraction] 95 % Dr. Sharif Christianson MD Work Phone: 6(337)396-492708 [place] [address] 04-05-2025 12:31-0400 Systolic blood pressure 120 mm[Hg] Dr. Sharif Christianson MD Work Phone: 3(154)453-119208 [place] [address] 04-05-2025 10:45-0400 Body height 154.[address] Sharfi Christianson MD Work Phone: 7(143)136-965308 [place] [address] 04-05-2025 10:45-0400 Body mass index (BMI) [Ratio] 35.9 kg/m2 Dr. Sharif Christianson MD Work Phone: 4(160)354-167008 [place] [address] 04-05-2025 10:45-0400 Body weight 86.[address] Sharif Christianson MD Work Phone: 4(574)153-970908 [place] [address] 04-05-2025 10:45-0400 Diastolic blood pressure 60 mm[Hg] Dr. Sharif Christianson MD Work Phone: 2(434)110-484708 [place] [address] 04-05-2025 10:45-0400 Heart rate 67 /min Dr. Sharif Christianson MD Work Phone: 7(814)767-654459 [place] [address] 04-05-2025 10:45-0400 Respiratory rate 16 /min Dr. Sharif Christianson MD Work Phone: 0(462)994-701008 [place] [address] 04-05-2025 10:45-0400 Systolic blood pressure 108 mm[Hg] Dr. Sharif Christianson MD Work Phone: 9(114)492-770708 [place] [address] 03-15-2025 11:54-0400 Body height 154.[address] Sharif Christianson MD Work Phone: [facility] 03-15-2025 11:54-0400 Body mass index (BMI) [Ratio] 35.5 kg/m2 Dr. Sharif Christianson MD Work Phone: [facility] 03-15-2025 11:54-0400 Body temperature 98.3 [degF] Dr. Sharif Christianson MD Work Phone: [facility] 03-15-2025 11:54-0400 Body weight 85.[address] Sharif Christianson MD Work Phone: [facility] 03-15-2025 11:54-0400 Diastolic blood pressure 76 mm[Hg] Dr. Sharif Christianson MD Work Phone: [facility] 03-15-2025 11:54-0400 Heart rate 75 /min Dr. Sharif Christianson MD Work Phone: [facility] 03-15-2025 11:54-0400 Respiratory rate 18 /min Dr. Sharif Christianson MD Work Phone: [facility] 03-15-2025 11:54-0400 SaO2% (BldA) [Mass fraction] 97 % Dr. Sharif Christianson MD Work Phone: [facility] 03-15-2025 11:54-0400 Systolic blood pressure 144 mm[Hg] Dr. Sharif Christianson MD Work Phone: [facility] 03-08-2025 10:25-0400 Body temperature 97.8 [degF] Dr. Sharif Christianson MD Work Phone: [facility] 03-08-2025 10:25-0400 Body weight 84.[address] Sharif Christianson MD Work Phone: [facility] 03-08-2025 10:25-0400 Diastolic blood pressure 66 mm[Hg] Dr. Sharif Christianson MD Work Phone: [facility] 03-08-2025 10:25-0400 Heart rate 65 /min Dr. Sharif Christianson MD Work Phone: [facility] 03-08-2025 10:25-0400 Respiratory rate 14 /min Dr. Sharif Christianson MD Work Phone: [facility] 03-08-2025 10:25-0400 SaO2% (BldA) [Mass fraction] 99 % Dr. Sharif Christianson MD Work Phone: 9(791)883-411959 [place] [address] 03-08-2025 10:25-0400 Systolic blood pressure 132 mm[Hg] Dr. Sharif Christianson MD Work Phone: 2(378)828-745259 [place] [address] 02-22-2025 13:12-0400 Body temperature 96.3 [degF] Dr. Sharif Christianson MD Work Phone: 2(929)977-584496 [address] 02-22-2025 13:12-0400 Diastolic blood pressure 56 mm[Hg] Dr. Sharif Christianson MD Work Phone: 6(403)096-539359 [place] [address] 02-22-2025 13:12-0400 Heart rate 61 /min Dr. Sharif Christianson MD Work Phone: 7(885)549-494896 [address] 02-22-2025 13:12-0400 Respiratory rate 16 /min Dr. Sharif Christianson MD Work Phone: 6(120)151-163096 [address] 02-22-2025 13:12-0400 Systolic blood pressure 102 mm[Hg] Dr. Sharif Christianson MD Work Phone: 3(366)504-628059 [place] [address] 02-22-2025 10:39-0400 Body height 154.[address] Sharif Christianson MD Work Phone: [facility] 02-22-2025 10:39-0400 Body mass index (BMI) [Ratio] 35.4 kg/m2 Dr. Sharif Christianson MD Work Phone: 9(291)230-417559 [place] [address] 02-22-2025 10:39-0400 Body temperature 98.1 [degF] Dr. Sharif Christianson MD Work Phone: 4(259)569-040796 [address] 02-22-2025 10:39-0400 Body weight 84.[address] Sharif Christianson MD Work Phone: [facility] 02-22-2025 10:39-0400 Diastolic blood pressure 70 mm[Hg] Dr. Sharif Christianson MD Work Phone: [facility] 02-22-2025 10:39-0400 Heart rate 59 /min Dr. Sharif Christianson MD Work Phone: 5(634)767-184059 [place] [address] 02-22-2025 10:39-0400 Respiratory rate 18 /min Dr. Sharif Christianson MD Work Phone: [facility] 02-22-2025 10:39-0400 SaO2% (BldA) [Mass fraction] 98 % Dr. Sharif Christianson MD Work Phone: [facility] 02-22-2025 10:39-0400 Systolic blood pressure 113 mm[Hg] Dr. Sharif Christianson MD Work Phone: 2(043)772-354959 [place] [address] 01-25-2025 13:16-0400 Body height 154.[address] Sharif Christianson MD Work Phone: 3(447)343-053396 [address] 01-25-2025 13:16-0400 Body mass index (BMI) [Ratio] 35.6 kg/m2 Dr. Sharif Christianson MD Work Phone: [facility] 01-25-2025 13:16-0400 Body temperature 97.7 [degF] Dr. Sharif Christianson MD Work Phone: [facility] 01-25-2025 13:16-0400 Body weight 85.[address] Sharif Christianson MD Work Phone: [facility] 01-25-2025 13:16-0400 Diastolic blood pressure 76 mm[Hg] Dr. Sharif Christianson MD Work Phone: [facility] 01-25-2025 13:16-0400 Heart rate 64 /min Dr. Sharif Christianson MD Work Phone: [facility] 01-25-2025 13:16-0400 Respiratory rate 16 /min Dr. Sharif Christianson MD Work Phone: [facility] 01-25-2025 13:16-0400 SaO2% (BldA) [Mass fraction] 96 % Dr. Sharif Christianson MD Work Phone: [facility] 01-25-2025 13:16-0400 Systolic blood pressure 127 mm[Hg] Dr. Sharif Christianson MD Work Phone: 1(105)546-239659 [place] [address] 01-04-2025 13:16-0400 Body height 154.[address] Sharif Christianson MD Work Phone: 2(142)838-202308 [place] [address] 01-04-2025 13:16-0400 Body mass index (BMI) [Ratio] 35 kg/m2 Dr. Sharif Christianson MD Work Phone: 6(510)755-465008 [place] [address] 01-04-2025 13:16-0400 Body temperature 97.2 [degF] Dr. Sharif Christianson MD Work Phone: 0(862)380-162108 [place] [address] 01-04-2025 13:16-0400 Body weight 84.[address] Sharif Christianson MD Work Phone: 2(812)879-526396 [address] 01-04-2025 13:16-0400 Diastolic blood pressure 69 mm[Hg] Dr. Sharif Christianson MD Work Phone: 8(927)609-086859 [place] [address] 01-04-2025 13:16-0400 Heart rate 64 /min Dr. Sharif Christianson MD Work Phone: [facility] 01-04-2025 13:16-0400 Respiratory rate 16 /min Dr. Sharif Christianson MD Work Phone: [facility] 01-04-2025 13:16-0400 SaO2% (BldA) [Mass fraction] 94 % Dr. Sharif Christianson MD Work Phone: [facility] 01-04-2025 13:16-0400 Systolic blood pressure 114 mm[Hg] Dr. Sharif Christianson MD Work Phone: 7(275)075-260659 [place] [address] 12-14-2024 10:41-0400 Body mass index (BMI) [Ratio] 34.2 kg/m2 Dr. Sharif Christianson MD Work Phone: [facility] 12-14-2024 10:41-0400 Body temperature 96.6 [degF] Dr. Sharif Christianson MD Work Phone: [facility] 12-14-2024 10:41-0400 Body weight 82.[address] Sharif Christianson MD Work Phone: [facility] 12-14-2024 10:41-0400 Diastolic blood pressure 73 mm[Hg] Dr. Sharif Christianson MD Work Phone: 3(084)090-348859 [place] [address] 12-14-2024 10:41-0400 Heart rate 69 /min Dr. Sharif Christianson MD Work Phone: 7(395)176-108359 [place] [address] 12-14-2024 10:41-0400 Respiratory rate 16 /min Dr. Sharif Christianson MD Work Phone: 7(652)309-153659 [place] [address] 12-14-2024 10:41-0400 SaO2% (BldA) [Mass fraction] 96 % Dr. Sharif Christianson MD Work Phone: [facility] 12-14-2024 10:41-0400 Systolic blood pressure 128 mm[Hg] Dr. Sharif Christianson MD Work Phone: [facility] 11-23-2024 09:28-0400 Body height 154.[address] Sharif Christianson MD Work Phone: [facility] 11-23-2024 09:28-0400 Body mass index (BMI) [Ratio] 34.1 kg/m2 Dr. Sharif Christianson MD Work Phone: [facility] 11-23-2024 09:28-0400 Body temperature 97.2 [degF] Dr. Sharif Christianson MD Work Phone: [facility] 11-23-2024 09:28-0400 Body weight 81.[address] Sharif Christianson MD Work Phone: [facility] 11-23-2024 09:28-0400 Diastolic blood pressure 68 mm[Hg] Dr. Sharif Christianson MD Work Phone: [facility] 11-23-2024 09:28-0400 Heart rate 71 /min Dr. Sharif Christianson MD Work Phone: [facility] 11-23-2024 09:28-0400 Respiratory rate 16 /min Dr. Sharif Christianson MD Work Phone: 4(582)441-849259 [place] [address] 11-23-2024 09:28-0400 SaO2% (BldA) [Mass fraction] 97 % Dr. Sharif Christianson MD Work Phone: 7(257)022-835859 [place] [address] 11-23-2024 09:28-0400 Systolic blood pressure 119 mm[Hg] Dr. Sharif Christianson MD Work Phone: 4(717)052-494408 [place] [address] 11-10-2024 13:17-0400 Body temperature 98.2 [degF] Dr. Sharif Christianson MD Work Phone: 3(132)583-025359 [place] [address] 11-10-2024 13:17-0400 Body weight [address] Sharif Christianson MD Work Phone: 6(160)371-392008 [place] [address] 11-10-2024 13:17-0400 Diastolic blood pressure 72 mm[Hg] Dr. Sharif Christianson MD Work Phone: 2(105)341-452959 [place] [address] 11-10-2024 13:17-0400 Heart rate 74 /min Dr. Sharif Christianson MD Work Phone: 7(249)723-656459 [place] [address] 11-10-2024 13:17-0400 Respiratory rate 18 /min Dr. Sharif Christianson MD Work Phone: 5(948)855-537559 [place] [address] 11-10-2024 13:17-0400 SaO2% (BldA) [Mass fraction] 97 % Dr. Sharif Christianson MD Work Phone: 8(871)594-001059 [place] [address] 11-10-2024 13:17-0400 Systolic blood pressure 122 mm[Hg] Dr. Sharif Christianson MD Work Phone: 5(602)808-861859 [place] [address] 11-02-2024 13:26-0400 Diastolic blood pressure 61 mm[Hg] Dr. Sharif Chirstianson MD Work Phone: [facility] 11-02-2024 13:26-0400 Systolic blood pressure 140 mm[Hg] Dr. Sharif Christianson MD Work Phone: [facility] 11-02-2024 10:11-0400 Body mass index (BMI) [Ratio] 34.2 kg/m2 Dr. Sharif Christianson MD Work Phone: [facility] 11-02-2024 10:11-0400 Body temperature 97.9 [degF] Dr. Sharif Christianson MD Work Phone: 4(326)521-888459 [place] [address] 11-02-2024 10:11-0400 Body weight 82.[address] Sharif Christianson MD Work Phone: 0(133)288-642459 [place] [address] 11-02-2024 10:11-0400 Diastolic blood pressure 73 mm[Hg] Dr. Sharif Christianson MD Work Phone: [facility] 11-02-2024 10:11-0400 Heart rate 69 /min Dr. Sharif Christianson MD Work Phone: [facility] 11-02-2024 10:11-0400 Respiratory rate 16 /min Dr. Sharif Christianson MD Work Phone: 1(883)044-851759 [place] [address] 11-02-2024 10:11-0400 SaO2% (BldA) [Mass fraction] 95 % Dr. Sharif Christianson MD Work Phone: [facility] 11-02-2024 10:11-0400 Systolic blood pressure 118 mm[Hg] Dr. Sharif Christianson MD Work Phone: [facility] 10-12-2024 13:12-0500 Body temperature 97.1 [degF] Dr. Sharif Christianson MD Work Phone: [facility] 10-12-2024 13:12-0500 Heart rate 61 /min Dr. Sharif Christianson MD Work Phone: 5(021)327-990608 [place] [address] 10-12-2024 13:12-0500 Respiratory rate 16 /min Dr. Sharif Christianson MD Work Phone: 9(537)399-623508 [place] [address] 10-12-2024 13:12-0500 SaO2% (BldA) [Mass fraction] 97 % Dr. Sharif Christianson MD Work Phone: 8(749)485-860408 [place] [address] 10-12-2024 10:18-0500 Body mass index (BMI) [Ratio] 34.9 kg/m2 Dr. Sharif Christianson MD Work Phone: 8(250)927-984408 [place] [address] 10-12-2024 10:18-0500 Body temperature 96.9 [degF] Dr. Sharif Christianson MD Work Phone: 5(856)377-180908 [place] [address] 10-12-2024 10:18-0500 Body weight 84.[address] Sharif Christianson MD Work Phone: 9(538)875-356208 [place] [address] 10-12-2024 10:18-0500 Diastolic blood pressure 73 mm[Hg] Dr. Sharif Christianson MD Work Phone: 0(189)461-075908 [place] [address] 10-12-2024 10:18-0500 Heart rate 71 /min Dr. Sharif Christianson MD Work Phone: 2(991)050-106308 [place] [address] 10-12-2024 10:18-0500 Respiratory rate 16 /min Dr. Sharif Christianson MD Work Phone: 8(783)215-178008 [place] [address] 10-12-2024 10:18-0500 SaO2% (BldA) [Mass fraction] 94 % Dr. Sharif Christianson MD Work Phone: 0(153)111-657659 [place] [address] 10-12-2024 10:18-0500 Systolic blood pressure 150 mm[Hg] Dr. Sharif Christianson MD Work Phone: 6(027)070-645108 [place] [address] 09-21-2024 08:01-0500 Body mass index (BMI) [Ratio] 35 kg/m2 Dr. Sharif Christianson MD Work Phone: 8(869)780-454108 [place] [address] 09-21-2024 08:01-0500 Body temperature 97.9 [degF] Dr. Sharif Christianson MD Work Phone: [facility] 09-21-2024 08:01-0500 Body weight 84.[address] Sharif Christianson MD Work Phone: [facility] 09-21-2024 08:01-0500 Diastolic blood pressure 82 mm[Hg] Dr. Sharif Christianson MD Work Phone: 9(685)384-686759 [place] [address] 09-21-2024 08:01-0500 Heart rate 62 /min Dr. Sharif Christianson MD Work Phone: 0(494)705-474659 [place] [address] 09-21-2024 08:01-0500 Respiratory rate 18 /min Dr. Sharif Christianson MD Work Phone: 2(707)562-345008 [place] [address] 09-21-2024 08:01-0500 SaO2% (BldA) [Mass fraction] 93 % Dr. Sharif Christianson MD Work Phone: 8(067)371-418059 [place] [address] 09-21-2024 08:01-0500 Systolic blood pressure 142 mm[Hg] Dr. Sharif Christianson MD Work Phone: 7(963)385-245896 [address] 09-06-2024 14:37-0500 Body mass index (BMI) [Ratio] 35.4 kg/m2 Dr. Sharif Christianson MD Work Phone: 1(760)437-768096 [address] 09-06-2024 14:37-0500 Body temperature 97.4 [degF] Dr. Sharif Christianson MD Work Phone: 0(452)931-251459 [place] [address] 09-06-2024 14:37-0500 Body weight 84.[address] Sharif Christianson MD Work Phone: 1(505)732-381896 [address] 09-06-2024 14:37-0500 Diastolic blood pressure 80 mm[Hg] Dr. Sharif Christianson MD Work Phone: 8(845)084-193608 [place] [address] 09-06-2024 14:37-0500 Heart rate 79 /min Dr. Sharif Christianson MD Work Phone: 3(470)537-686796 [address] 09-06-2024 14:37-0500 Respiratory rate 18 /min Dr. Sharif Christianson MD Work Phone: [facility] 09-06-2024 14:37-0500 SaO2% (BldA) [Mass fraction] 96 % Dr. Sharif Christianson MD Work Phone: 6(859)283-785259 [place] [address] 09-06-2024 14:37-0500 Systolic blood pressure 137 mm[Hg] Dr. Sharif Christianson MD Work Phone: 0(914)540-297696 [address] 08-31-2024 08:05-0500 Body mass index (BMI) [Ratio] 36.1 kg/m2 Dr. Sharif Christianson MD Work Phone: 2(785)482-386908 [place] [address] 08-31-2024 08:05-0500 Body weight 86.[address] Sharif Christianson MD Work Phone: 3(044)391-392208 [place] [address] 08-31-2024 08:05-0500 Diastolic blood pressure 73 mm[Hg] Dr. Sharif Christianson MD Work Phone: 0(103)950-666508 [place] [address] 08-31-2024 08:05-0500 Heart rate 68 /min Dr. Sharif Christianson MD Work Phone: 0(105)490-410108 [place] [address] 08-31-2024 08:05-0500 Respiratory rate 20 /min Dr. Sharif Christianson MD Work Phone: 4(933)931-057908 [place] [address] 08-31-2024 08:05-0500 SaO2% (BldA) [Mass fraction] 93 % Dr. Sharif Christianson MD Work Phone: 1(100)754-583996 [address] 08-31-2024 08:05-0500 Systolic blood pressure 129 mm[Hg] Dr. Sharif Christianson MD Work Phone: 9(714)488-506108 [place] [address] 08-16-2024 09:47-0500 Body mass index (BMI) [Ratio] 35.6 kg/m2 Dr. Sharif Christianson MD Work Phone: 8(755)177-179908 [place] [address] 08-09-2024 10:33-0500 Body mass index (BMI) [Ratio] 35 kg/m2 Dr. Sharif Christianson MD Work Phone: 6(008)403-211408 [place] [address] 08-09-2024 10:33-0500 Body temperature 97.6 [degF] Dr. Sharif Christianson MD Work Phone: 2(757)476-986659 [place] [address] 08-09-2024 10:33-0500 Body weight 86.[address] Sharif Christianson MD Work Phone: 1(394)785-251559 [place] [address] 08-09-2024 10:33-0500 Diastolic blood pressure 83 mm[Hg] Dr. Sharif Christianson MD Work Phone: 7(499)952-501959 [place] [address] 08-09-2024 10:33-0500 Heart rate 67 /min Dr. Sharif Christianson MD Work Phone: 8(191)063-657008 [place] [address] 08-09-2024 10:33-0500 Respiratory rate 18 /min Dr. Sharif Christianson MD Work Phone: 8(408)956-457408 [place] [address] 08-09-2024 10:33-0500 SaO2% (BldA) [Mass fraction] 95 % Dr. Sharif Christianson MD Work Phone: 4(703)480-226759 [place] [address] 08-09-2024 10:33-0500 Systolic blood pressure 156 mm[Hg] Dr. Sharif Christianson MD Work Phone: 9(848)297-519559 [place] [address] 12-08-2023 14:34-0400 Body height 157.[address] Sharif Christianson Work Phone: 9(030)731-425359 [place] [address] 12-08-2023 14:34-0400 Body mass index (BMI) [Ratio] 33.1 kg/m2 Dr. Sharif Christianson Work Phone: 7(583)604-470459 [place] [address] 12-08-2023 14:34-0400 Body temperature 97.3 [degF] Dr. Sharif Christianson Work Phone: 6(090)009-522859 [place] [address] 12-08-2023 14:34-0400 Body weight 82.[address] Sharif Christianson Work Phone: [facility] 12-08-2023 14:34-0400 Diastolic blood pressure 75 mm[Hg] Dr. Sharif Christianson Work Phone: [facility] 12-08-2023 14:34-0400 Heart rate 75 /min Dr. Sharif Christianson Work Phone: [facility] 12-08-2023 14:34-0400 Respiratory rate 18 /min Dr. Sharif Christianson Work Phone: [facility] 12-08-2023 14:34-0400 SaO2% (BldA) [Mass fraction] 97 % Dr. Sharif Christianson Work Phone: [facility] 12-08-2023 14:34-0400 Systolic blood pressure 121 mm[Hg] Dr. Sharif Christianson Work Phone: [facility] 11-03-2023 14:30-0400 Body height 157.[address] Sharif Christianson Work Phone: [facility] 11-03-2023 14:30-0400 Body mass index (BMI) [Ratio] 34.4 kg/m2 Dr. Sharif Christianson Work Phone: [facility] 11-03-2023 14:30-0400 Body temperature 97.9 [degF] Dr. Sharif Christianson Work Phone: [facility] 11-03-2023 14:30-0400 Body weight 85.[address] Sharif Christianson Work Phone: [facility] 11-03-2023 14:30-0400 Diastolic blood pressure 67 mm[Hg] Dr. Sharif Christianson Work Phone: [facility] 11-03-2023 14:30-0400 Heart rate 87 /min Dr. Sharif Christianson Work Phone: [facility] 11-03-2023 14:30-0400 Respiratory rate 16 /min Dr. Sharif Christianson Work Phone: [facility] 11-03-2023 14:30-0400 SaO2% (BldA) [Mass fraction] 98 % Dr. Sharif Christianson Work Phone: [facility] 11-03-2023 14:30-0400 Systolic blood pressure 133 mm[Hg] Dr. Sharif Christianson Work Phone: [facility] 10-30-2023 09:26-0400 Body mass index (BMI) [Ratio] 34.4 kg/m2 Dr. Sharif Christianson Work Phone: [facility] 10-30-2023 09:26-0400 Body temperature 97.6 [degF] Dr. Sharif Christianson Work Phone: [facility] 10-30-2023 09:26-0400 Body weight 85.[address] Sharif Christianson Work Phone: [facility] 10-30-2023 09:26-0400 Diastolic blood pressure 72 mm[Hg] Dr. Sharif Christianson Work Phone: [facility] 10-30-2023 09:26-0400 Heart rate 73 /min Dr. Sharif Christianson Work Phone: [facility] 10-30-2023 09:26-0400 Respiratory rate 18 /min Dr. Sharif Christianson Work Phone: [facility] 10-30-2023 09:26-0400 SaO2% (BldA) [Mass fraction] 96 % Dr. Sharif Christianson Work Phone: [facility] 10-30-2023 09:26-0400 Systolic blood pressure 116 mm[Hg] Dr. Sharif Christianson Work Phone: [facility] 10-06-2023 15:05-0500 Body mass index (BMI) [Ratio] 34.2 kg/m2 Dr. Sharif Christianson Work Phone: [facility] 10-06-2023 15:05-0500 Body temperature 96.9 [degF] Dr. Sharif Christianson Work Phone: [facility] 10-06-2023 15:05-0500 Body weight 84.[address] Sharif Christianson Work Phone: [facility] 10-06-2023 15:05-0500 Diastolic blood pressure 75 mm[Hg] Dr. Sharif Christianson Work Phone: [facility] 10-06-2023 15:05-0500 Heart rate 72 /min Dr. Sharif Christianson Work Phone: [facility] 10-06-2023 15:05-0500 Respiratory rate 18 /min Dr. Sharif Christianson Work Phone: [facility] 10-06-2023 15:05-0500 SaO2% (BldA) [Mass fraction] 94 % Dr. Sharif Christianson Work Phone: [facility] 10-06-2023 15:05-0500 Systolic blood pressure 112 mm[Hg] Dr. Sharif Christianson Work Phone: [facility] 10-06-2023 14:25-0500 Body mass index (BMI) [Ratio] 34.2 kg/m2 Dr. Sharif Christianson Work Phone: [facility] 10-06-2023 14:25-0500 Body temperature 96.9 [degF] Dr. Sharif Christianson Work Phone: [facility] 10-06-2023 14:25-0500 Body weight 84.[address] Sharif Christianson Work Phone: [facility] 10-06-2023 14:25-0500 Diastolic blood pressure 75 mm[Hg] Dr. Sharif Christianson Work Phone: [facility] 10-06-2023 14:25-0500 Heart rate 72 /min Dr. Sharif Christianson Work Phone: [facility] 10-06-2023 14:25-0500 Respiratory rate 18 /min Dr. Sharif Christianson Work Phone: [facility] 10-06-2023 14:25-0500 SaO2% (BldA) [Mass fraction] 94 % Dr. Sharif Christianson Work Phone: [facility] 10-06-2023 14:25-0500 Systolic blood pressure 112 mm[Hg] Dr. Sharif Christianson Work Phone: [facility] 09-09-2023 10:50-0500 Body height 157.48 cm [employer] Iris Clayton Work Phone: [facility] 09-09-2023 10:50-0500 Body mass index (BMI) [Ratio] 33.6 kg/m2 [employer] Iris Clayton Work Phone: [facility] 09-09-2023 10:50-0500 Body temperature 97.6 [degF] [employer] Irisesther Clayton Work Phone: [facility] 09-09-2023 10:50-0500 Body weight 83.51 kg [employer] Iris Clayton Work Phone: [facility] 09-09-2023 10:50-0500 Diastolic blood pressure 61 mm[Hg] [employer] Iris Clayton Work Phone: [facility] 09-09-2023 10:50-0500 Heart rate 79 /min [employer] Iris Clayton Work Phone: [facility] 09-09-2023 10:50-0500 Respiratory rate 16 /min [employer] Iris Clayton Work Phone: [facility] 09-09-2023 10:50-0500 SaO2% (BldA) [Mass fraction] 94 % [employer] Iris Clayton Work Phone: [facility] 09-09-2023 10:50-0500 Systolic blood pressure 126 mm[Hg] [employer] Irisesther Clayton Work Phone: [facility] 09-08-2023 09:32-0500 Body mass index (BMI) [Ratio] 33.6 kg/m2 [employer] Irisesther Clayton Work Phone: [facility] 09-08-2023 09:32-0500 Body temperature 96.7 [degF] [employer] Iris Barkman Work Phone: [facility] 09-08-2023 09:32-0500 Body weight 83.46 kg [employer] Iris Barkman Work Phone: [facility] 09-08-2023 09:32-0500 Diastolic blood pressure 68 mm[Hg] [employer] Iris Barkman Work Phone: [facility] 09-08-2023 09:32-0500 Heart rate 69 /min [employer] Iris Barkman Work Phone: [facility] 09-08-2023 09:32-0500 Respiratory rate 18 /min [employer] Iris Barkman Work Phone: [facility] 09-08-2023 09:32-0500 SaO2% (BldA) [Mass fraction] 98 % [employer] Iris Barkman Work Phone: [facility] 09-08-2023 09:32-0500 Systolic blood pressure 110 mm[Hg] [employer] Iris Barkman Work Phone: [facility] 09-03-2023 10:53-0500 Body mass index (BMI) [Ratio] 34.1 kg/m2 [employer] Iris Barkman Work Phone: [facility] 09-03-2023 10:53-0500 Body temperature 97.9 [degF] [employer] Iris Barkman Work Phone: [facility] 09-03-2023 10:53-0500 Body weight 84.62 kg [employer] Iris Barkman Work Phone: [facility] 09-03-2023 10:53-0500 Diastolic blood pressure 75 mm[Hg] [employer] Iris Barkman Work Phone: [facility] 09-03-2023 10:53-0500 Heart rate 64 /min [employer] Iris Barkman Work Phone: [facility] 09-03-2023 10:53-0500 Respiratory rate 18 /min [employer] Iris Barkman Work Phone: [facility] 09-03-2023 10:53-0500 SaO2% (BldA) [Mass fraction] 97 % [employer] Iris Blantonman Work Phone: [facility] 09-03-2023 10:53-0500 Systolic blood pressure 113 mm[Hg] [employer] Irisesther Blantonman Work Phone: [facility] 09-01-2023 09:27-0500 Body mass index (BMI) [Ratio] 34.2 kg/m2 [employer] Irisesther Blantonman Work Phone: [facility] 09-01-2023 09:27-0500 Body temperature 96.8 [degF] [employer] Irisesther Blantonman Work Phone: [facility] 09-01-2023 09:27-0500 Body weight 84.87 kg [employer] Iris Clayton Work Phone: [facility] 09-01-2023 09:27-0500 Diastolic blood pressure 59 mm[Hg] [employer] Iris Clayton Work Phone: [facility] 09-01-2023 09:27-0500 Heart rate 68 /min [employer] Iris Blantonman Work Phone: [facility] 09-01-2023 09:27-0500 Respiratory rate 18 /min [employer] Irisesther Clayton Work Phone: [facility] 09-01-2023 09:27-0500 SaO2% (BldA) [Mass fraction] 96 % [employer] Irisesther Clayton Work Phone: [facility] 09-01-2023 09:27-0500 Systolic blood pressure 79 mm[Hg] [employer] Irisesther Blantonman Work Phone: [facility] 08-27-2023 10:35-0500 Body mass index (BMI) [Ratio] 34.4 kg/m2 [employer] Irisesther Blantonman Work Phone: [facility] 08-27-2023 10:35-0500 Body temperature 97.3 [degF] [employer] Irisesther Blantonman Work Phone: [facility] 08-27-2023 10:35-0500 Body weight 85.44 kg [employer] Iris Barkman Work Phone: [facility] 08-27-2023 10:35-0500 Diastolic blood pressure 77 mm[Hg] [employer] Iris Barkman Work Phone: [facility] 08-27-2023 10:35-0500 Heart rate 68 /min [employer] Irisesther Blantonman Work Phone: [facility] 08-27-2023 10:35-0500 Respiratory rate 18 /min [employer] Irisesther Blantonman Work Phone: [facility] 08-27-2023 10:35-0500 SaO2% (BldA) [Mass fraction] 97 % [employer] Irisesther Blantonman Work Phone: [facility] 08-27-2023 10:35-0500 Systolic blood pressure 112 mm[Hg] [employer] Irisesther Clayton Work Phone: [facility] 08-25-2023 08:52-0500 Body mass index (BMI) [Ratio] 34.2 kg/m2 [employer] Irisesther Blantonman Work Phone: [facility] 08-25-2023 08:52-0500 Body temperature 97.7 [degF] [employer] Irisesther Blantonman Work Phone: [facility] 08-25-2023 08:52-0500 Body weight 84.82 kg [employer]ERSON[employer] Iris Barkman Work Phone: [facility] 08-25-2023 08:52-0500 Diastolic blood pressure 75 mm[Hg] [employer]ERSON[employer] Iris Barkman Work Phone: [facility] 08-25-2023 08:52-0500 Heart rate 64 /min [employer] Iris Barkman Work Phone: [facility] 08-25-2023 08:52-0500 Respiratory rate 20 /min [employer] Irisesther Blantonman Work Phone: [facility] 08-25-2023 08:52-0500 SaO2% (BldA) [Mass fraction] 98 % [employer] Iris Barkman Work Phone: [facility] 08-25-2023 08:52-0500 Systolic blood pressure 109 mm[Hg] [employer]ERSON[employer] Iris Barkman Work Phone: [facility] 08-20-2023 10:03-0500 Body mass index (BMI) [Ratio] 34.7 kg/m2 [employer] Iris Barkman Work Phone: [facility] 08-20-2023 10:03-0500 Body temperature 97 [degF] [employer]ERSON[employer] Irisesther Blantonman Work Phone: [facility] 08-20-2023 10:03-0500 Body weight 86.29 kg [employer]ERSON[employer] Iris Barkman Work Phone: [facility] 08-20-2023 10:03-0500 Diastolic blood pressure 59 mm[Hg] [employer]ERSON[employer] Irisesther Blantonman Work Phone: [facility] 08-20-2023 10:03-0500 Heart rate 63 /min [employer]ERSON[employer] Irisesther Blantonman Work Phone: [facility] 08-20-2023 10:03-0500 Respiratory rate 16 /min [employer]ERSON[employer] Iris Barkman Work Phone: [facility] 08-20-2023 10:03-0500 SaO2% (BldA) [Mass fraction] 95 % [employer]ERSON[employer] Iris Barkman Work Phone: [facility] 08-20-2023 10:03-0500 Systolic blood pressure 114 mm[Hg] [employer]ERSON[employer] Iris Barkman Work Phone: [facility] 08-19-2023 09:09-0500 Body mass index (BMI) [Ratio] 34.4 kg/m2 [employer] Iris Barkman Work Phone: [facility] 08-19-2023 09:09-0500 Body weight 85.27 kg [employer]ERSON-[employer] Iris Barkman Work Phone: [facility] 08-19-2023 09:09-0500 Diastolic blood pressure 71 mm[Hg] [employer]ERSON-[employer] Iris Barkman Work Phone: [facility] 08-19-2023 09:09-0500 Heart rate 66 /min [employer]ERSON-[employer] Iris Barkman Work Phone: [facility] 08-19-2023 09:09-0500 Respiratory rate 18 /min [employer]ERSON-[employer] Iris Barkman Work Phone: [facility] 08-19-2023 09:09-0500 SaO2% (BldA) [Mass fraction] 99 % [employer]ERSON-[employer] Iris Barkman Work Phone: [facility] 08-19-2023 09:09-0500 Systolic blood pressure 122 mm[Hg] [employer]ERSON-[employer] Iris Barkman Work Phone: [facility] 08-19-2023 09:06-0500 Body mass index (BMI) [Ratio] 34.4 kg/m2 [employer] Iris Barkman Work Phone: [facility] 08-19-2023 09:06-0500 Body temperature 97.5 [degF] [employer]ERSON-[employer] Iris Barkman Work Phone: [facility] 08-19-2023 09:06-0500 Body weight 85.27 kg [employer]ERSON-[employer] Iris Barkman Work Phone: [facility] 08-19-2023 09:06-0500 Diastolic blood pressure 63 mm[Hg] [employer]ERSON-[employer] Iris Barkman Work Phone: [facility] 08-19-2023 09:06-0500 Heart rate 57 /min [employer]ERSON-[employer] Iris Barkman Work Phone: [facility] 08-19-2023 09:06-0500 Respiratory rate 18 /min [employer]ERSON-[employer] Iris Barkman Work Phone: [facility] 08-19-2023 09:06-0500 SaO2% (BldA) [Mass fraction] 97 % [employer] Iris Clayton Work Phone: [facility] 08-19-2023 09:06-0500 Systolic blood pressure 129 mm[Hg] [employer]ERSON-[employer] Iris Clayton Work Phone: [facility] 08-13-2023 10:55-0500 Body mass index (BMI) [Ratio] 35.1 kg/m2 [employer] Iris Clayton Work Phone: [facility] 08-13-2023 10:55-0500 Body temperature 97.8 [degF] [employer]ERSON[employer] Iris Clayton Work Phone: [facility] 08-13-2023 10:55-0500 Body weight 87.08 kg [employer]ERSON-[employer] Iris Clayton Work Phone: [facility] 08-13-2023 10:55-0500 Diastolic blood pressure 75 mm[Hg] [employer]ERSON-[employer] Iris Clayton Work Phone: [facility] 08-13-2023 10:55-0500 Heart rate 62 /min [employer]ERSON[employer] Iris Clayton Work Phone: [facility] 08-13-2023 10:55-0500 Respiratory rate 16 /min [employer]ERSON[employer] Iris Clayton Work Phone: [facility] 08-13-2023 10:55-0500 SaO2% (BldA) [Mass fraction] 95 % [employer]ERSON[employer] Iris Clayton Work Phone: [facility] 08-13-2023 10:55-0500 Systolic blood pressure 124 mm[Hg] [employer]ERSON-[employer] Irisesther Blantonman Work Phone: [facility] 08-12-2023 08:28-0500 Body mass index (BMI) [Ratio] 35.5 kg/m2 [employer] Iris Clayton Work Phone: [facility] 08-12-2023 08:28-0500 Body temperature 97.8 [degF] [employer]ERSON-[employer] Iris Clayton Work Phone: [facility] 08-12-2023 08:28-0500 Body weight 88.13 kg [employer]ERSON-[employer] Irisesther Blantonman Work Phone: [facility] 08-12-2023 08:28-0500 Diastolic blood pressure 65 mm[Hg] [employer]ERSON-[employer] Irisesther Blantonman Work Phone: [facility] 08-12-2023 08:28-0500 Heart rate 61 /min [employer]ERSON-[employer] Irisesther Blantonman Work Phone: [facility] 08-12-2023 08:28-0500 Respiratory rate 18 /min [employer]ERSON-[employer] Irisesther Blantonman Work Phone: [facility] 08-12-2023 08:28-0500 SaO2% (BldA) [Mass fraction] 96 % [employer]ERSON-[employer] Iris Clayton Work Phone: [facility] 08-12-2023 08:28-0500 Systolic blood pressure 137 mm[Hg] [employer]ERSON-[employer] Iris Clayton Work Phone: [facility] 08-06-2023 10:54-0500 Body mass index (BMI) [Ratio] 34.8 kg/m2 [employer]ERSON-[employer] Iris Clayton Work Phone: [facility] 08-06-2023 10:54-0500 Body temperature 97.5 [degF] [employer]ERSON-[employer] Irisesther Clayton Work Phone: [facility] 08-06-2023 10:54-0500 Body weight 86.38 kg [employer]ERSON-[employer] Irisesther Blantonman Work Phone: [facility] 08-06-2023 10:54-0500 Diastolic blood pressure 69 mm[Hg] [employer]ERSON-[employer] Irisesther Blantonman Work Phone: [facility] 08-06-2023 10:54-0500 Heart rate 64 /min [employer]ERSON-[employer] Irisesther Blantonman Work Phone: [facility] 08-06-2023 10:54-0500 Respiratory rate 18 /min [employer]ERSON-C Irisesther Blantonman Work Phone: [facility] 08-06-2023 10:54-0500 SaO2% (BldA) [Mass fraction] 96 % [employer]MENT FLOOR[employer]ERSON-C Iris Barkman Work Phone: [facility] 08-06-2023 10:54-0500 Systolic blood pressure 116 mm[Hg] [employer] M[employer]INE DEPARTMENT FLOORPERSON-C Iris Barkman Work Phone: [facility] 08-04-2023 12:49-0500 Body temperature 97.5 [degF] [employer] M[employer]INE [employer]MENT FLOORPERSON-C Iris Barkman Work Phone: [facility] 08-04-2023 12:49-0500 Diastolic blood pressure 47 mm[Hg] [employer] M[employer]INE DEPARTMENT FLOORPERSON-C Iris Barkman Work Phone: [facility] 08-04-2023 12:49-0500 Heart rate 70 /min [employer] M[employer]INE [employer]MENT FLOORPERSON-C Iris Barkman Work Phone: [facility] 08-04-2023 12:49-0500 Respiratory rate 16 /min [employer] M[employer]INE [employer]MENT FLOORPERSON-C Irisesther Blantonman Work Phone: [facility] 08-04-2023 12:49-0500 Systolic blood pressure 122 mm[Hg] [employer] MACHINE DEPARTMENT FLOORPERSON-C Iris Barkman Work Phone: [facility] 08-04-2023 08:06-0500 Body mass index (BMI) [Ratio] 34.9 kg/m2 [employer]MENT FLOORPERSON-C Iris Barkman Work Phone: [facility] 08-04-2023 08:06-0500 Body temperature 97.5 [degF] [employer] M[employer]INE DEPARTMENT FLOORPERSON-C Iris Barkman Work Phone: [facility] 08-04-2023 08:06-0500 Body weight 86.74 kg SLOT MACHINE DEPARTMENT FLOORPERSON-C Iris Barkman Work Phone: [facility] 08-04-2023 08:06-0500 Diastolic blood pressure 64 mm[Hg] [employer] M[employer]INE DEPARTMENT FLOORPERSON-C Iris Barkman Work Phone: [facility] 08-04-2023 08:06-0500 Heart rate 57 /min SL[employer] MACHINE DEPARTMENT FLOORPERSON-C Irisesther Blantonman Work Phone: [facility] 08-04-2023 08:06-0500 Respiratory rate 18 /min [employer] M[employer]INE DE[employer]MENT FLOORPERSON-C Iris Barkman Work Phone: [facility] 08-04-2023 08:06-0500 SaO2% (BldA) [Mass fraction] 97 % [employer] MACHINE DEPARTMENT FLOORPERSON-C Iris Barkman Work Phone: [facility] 08-04-2023 08:06-0500 Systolic blood pressure 104 mm[Hg] [employer] M[employer]INE DEPARTMENT FLOORPERSON-C Iris Barkman Work Phone: [facility] 07-30-2023 11:01-0500 Body mass index (BMI) [Ratio] 35.3 kg/m2 [employer] M[employer]INE [employer]PARTMENT FLOORPERSON-C Iris Barkman Work Phone: [facility] 07-30-2023 11:01-0500 Body temperature 97.4 [degF] [employer] MACHINE DEPARTMENT FLOORPERSON-C Iris Barkman Work Phone: [facility] 07-30-2023 11:01-0500 Body weight 87.57 kg SL[employer] M[employer]INE DEPARTMENT FLOORPERSON-C Irisesther Blantonman Work Phone: [facility] 07-30-2023 11:01-0500 Diastolic blood pressure 78 mm[Hg] [employer] MACHINE DEPARTMENT FLOORPERSON-C Iris Barkman Work Phone: [facility] 07-30-2023 11:01-0500 Heart rate 54 /min [employer] M[employer]INE DE[employer]MENT FLOORPERSON-C Iris Barkman Work Phone: [facility] 07-30-2023 11:01-0500 Respiratory rate 18 /min SL[employer] MACHINE DEPARTMENT FLOORPERSON-C Iris Barkman Work Phone: [facility] 07-30-2023 11:01-0500 SaO2% (BldA) [Mass fraction] 95 % [employer] M[employer]INE DEPARTMENT FLOORPERSON-C Iris Barkman Work Phone: [facility] 07-30-2023 11:01-0500 Systolic blood pressure 129 mm[Hg] [employer] MACHINE DEPARTMENT FLOORPERSON-C Iris Barkman Work Phone: [facility] 07-28-2023 13:12-0500 Body temperature 97.5 [degF] [employer] MACHINE DEPARTMENT FLOORPERSON-C Iris Barkman Work Phone: [facility] 07-28-2023 13:12-0500 Diastolic blood pressure 60 mm[Hg] [employer] MACHINE DEPARTMENT FLOORPERSON-C Iris Barkman Work Phone: [facility] 07-28-2023 13:12-0500 Heart rate 71 /min SL[employer] MACHINE DEPARTMENT FLOORPERSON-C Iris Barkman Work Phone: [facility] 07-28-2023 13:12-0500 Respiratory rate 16 /min SL[employer] MACHINE DEPARTMENT FLOORPERSON-C Iris Barkman Work Phone: [facility] 07-28-2023 13:12-0500 SaO2% (BldA) [Mass fraction] 93 % SL[employer] MACHINE DEPARTMENT FLOORPERSON-C Iris Barkman Work Phone: [facility] 07-28-2023 13:12-0500 Systolic blood pressure 133 mm[Hg] SL[employer] MACHINE DEPARTMENT FLOORPERSON-C Iris Barkman Work Phone: [facility] 07-28-2023 09:03-0500 Body height 157.48 cm SLOT MACHINE DEPARTMENT FLOORPERSON-C Iris Barkman Work Phone: [facility] 07-28-2023 09:03-0500 Body mass index (BMI) [Ratio] 34.9 kg/m2 [employer] M[employer]INE [employer]PARTMENT FLOORPERSON-C Iris Barkman Work Phone: [facility] 07-28-2023 09:03-0500 Body temperature 97.4 [degF] [employer] MACHINE DEPARTMENT FLOORPERSON-C Iris Barkman Work Phone: [facility] 07-28-2023 09:03-0500 Body weight 86.74 kg SLOT MACHINE DEPARTMENT FLOORPERSON-C Iris Barkman Work Phone: [facility] 07-28-2023 09:03-0500 Diastolic blood pressure 85 mm[Hg] SL[employer] MACHINE DEPARTMENT FLOORPERSON-C Iris Barkman Work Phone: [facility] 07-28-2023 09:03-0500 Heart rate 57 /min SL[employer] MACHINE DEPARTMENT FLOORPERSON-C Iris Barkman Work Phone: [facility] 07-28-2023 09:03-0500 Respiratory rate 18 /min SL[employer] MACHINE DEPARTMENT FLOORPERSON-C Irisesther Blantonman Work Phone: [facility] 07-28-2023 09:03-0500 SaO2% (BldA) [Mass fraction] 96 % SL[employer] MACHINE DEPARTMENT FLOORPERSON-C Iris Blantonman Work Phone: [facility] 07-28-2023 09:03-0500 Systolic blood pressure 153 mm[Hg] SL[employer] MACHINE DEPARTMENT FLOORPERSON-C Irisesther Blantonman Work Phone: [facility] 07-22-2023 13:14-0500 Body temperature 97.6 [degF] SL[employer] MACHINE DEPARTMENT FLOORPERSON-C Irisesther Blantonman Work Phone: [facility] 07-22-2023 13:14-0500 Diastolic blood pressure 54 mm[Hg] SL[employer] MACHINE DEPARTMENT FLOORPERSON-C Iris Clayton Work Phone: [facility] 07-22-2023 13:14-0500 Heart rate 68 /min SL[employer] MACHINE DEPARTMENT FLOORPERSON-C Iris Clayton Work Phone: [facility] 07-22-2023 13:14-0500 Respiratory rate 18 /min SL[employer] MACHINE DEPARTMENT FLOORPERSON-C Iris Clayton Work Phone: [facility] 07-22-2023 13:14-0500 SaO2% (BldA) [Mass fraction] 95 % SL[employer] MACHINE DEPARTMENT FLOORPERSON-C Iris Clayton Work Phone: [facility] 07-22-2023 13:14-0500 Systolic blood pressure 120 mm[Hg] SL[employer] MACHINE DEPARTMENT FLOORPERSON-C Irisesther Clayton Work Phone: [facility] 07-22-2023 11:25-0500 Body height 157.48 cm SLOT MACHINE DEPARTMENT FLOORPERSON-C Irisesther Blantonman Work Phone: [facility] 07-22-2023 11:25-0500 Body mass index (BMI) [Ratio] 35 kg/m2 SL[employer] MACHINE DEPARTMENT FLOORPERSON-C Iris Blantonman Work Phone: [facility] 07-22-2023 11:25-0500 Body weight 87 kg SLOT MACHINE DEPARTMENT FLOORPERSON-C Iris Clayton Work Phone: [facility] 07-18-2023 10:11-0500 Body mass index (BMI) [Ratio] 34.6 kg/m2 SL[employer] MACHINE DEPARTMENT FLOORPERSON-C Iris Clayton Work Phone: [facility] 07-18-2023 10:11-0500 Body temperature 97.2 [degF] SL[employer] MACHINE DEPARTMENT FLOORPERSON-C Iris Clayton Work Phone: [facility] 07-18-2023 10:11-0500 Body weight 85.95 kg SLOT MACHINE DEPARTMENT FLOORPERSON-C Iris Clayton Work Phone: [facility] 07-18-2023 10:11-0500 Diastolic blood pressure 60 mm[Hg] SL[employer] MACHINE DEPARTMENT FLOORPERSON-C Iris Clayton Work Phone: [facility] 07-18-2023 10:11-0500 Heart rate 63 /min SL[employer] MACHINE DEPARTMENT FLOORPERSON-C Iris Clayton Work Phone: [facility] 07-18-2023 10:11-0500 Respiratory rate 18 /min SLOT MACHINE DEPARTMENT FLOORPERSON-C Iris Clayton Work Phone: [facility] 07-18-2023 10:11-0500 SaO2% (BldA) [Mass fraction] 95 % SL[employer] MACHINE DEPARTMENT FLOORPERSON-C Iris Clayton Work Phone: [facility] 07-18-2023 10:11-0500 Systolic blood pressure 119 mm[Hg] SL[employer] MACHINE DEPARTMENT FLOORPERSON-C Iris Clayton Work Phone: [facility] 07-17-2023 08:51-0500 Body mass index (BMI) [Ratio] 35 kg/m2 SL[employer] MACHINE DEPARTMENT FLOORPERSON-C Iris Clayton Work Phone: [facility] 07-17-2023 08:51-0500 Body temperature 98.1 [degF] SL[employer] MACHINE DEPARTMENT FLOORPERSON-C [facility] Work Phone: [facility] 07-17-2023 08:51-0500 Body weight 86.83 kg SLOT MACHINE DEPARTMENT FLOORPERSON-C Iris Clayton Work Phone: [facility] 07-17-2023 08:51-0500 Diastolic blood pressure 84 mm[Hg] SLOT MACHINE DEPARTMENT FLOORPERSON-C Irisesther Blantonman Work Phone: [facility] 07-17-2023 08:51-0500 Heart rate 59 /min SL[employer] MACHINE DEPARTMENT FLOORPERSON-C Irisesther Blantonman Work Phone: [facility] 07-17-2023 08:51-0500 Respiratory rate 18 /min SL[employer] MACHINE DEPARTMENT FLOORPERSON-C Irisesther Blantonman Work Phone: [facility] 07-17-2023 08:51-0500 SaO2% (BldA) [Mass fraction] 97 % SLOT MACHINE DEPARTMENT FLOORPERSON-C Iris Clayton Work Phone: [facility] 07-17-2023 08:51-0500 Systolic blood pressure 124 mm[Hg] SLOT MACHINE DEPARTMENT FLOORPERSON-C Irisesther Blantonman Work Phone: [facility] 07-16-2023 07:16-0500 Body mass index (BMI) [Ratio] 35.1 kg/m2 SL[employer] MACHINE DEPARTMENT FLOORPERSON-C Irisesther Clayton Work Phone: [facility] 07-16-2023 07:16-0500 Body weight 87.08 kg SLOT MACHINE DEPARTMENT FLOORPERSON-C Iris Clayton Work Phone: [facility] 07-09-2023 09:10-0500 Body weight 85.27 kg SLOT MACHINE DEPARTMENT FLOORPERSON-C Iris Clayton Work Phone: [facility] 07-09-2023 09:09-0500 Body mass index (BMI) [Ratio] 34.4 kg/m2 SL[employer] MACHINE DEPARTMENT FLOORPERSON-C Iris Barkman Work Phone: [facility] 07-04-2023 14:34-0500 Body mass index (BMI) [Ratio] 34.4 kg/m2 SL[employer] MACHINE DEPARTMENT FLOORPERSON-C Irisesther Blantonman Work Phone: [facility] 07-04-2023 14:34-0500 Body weight 85.27 kg SLOT MACHINE DEPARTMENT FLOORPERSON-C Iris Barkman Work Phone: [facility] 07-04-2023 14:34-0500 Diastolic blood pressure 59 mm[Hg] SLOT MACHINE DEPARTMENT FLOORPERSON-C Iris Barkman Work Phone: [facility] 07-04-2023 14:34-0500 Heart rate 56 /min SLOT MACHINE DEPARTMENT FLOORPERSON-C Iris Clayton Work Phone: [facility] 07-04-2023 14:34-0500 Respiratory rate 16 /min SLOT MACHINE DEPARTMENT FLOORPERSON-C Iris Clayton Work Phone: [facility] 07-04-2023 14:34-0500 Systolic blood pressure 97 mm[Hg] SLOT MACHINE DEPARTMENT FLOORPERSON-C Iris Clayton Work Phone: [facility] 07-04-2023 09:55-0500 Body mass index (BMI) [Ratio] 34.6 kg/m2 SL[employer] MACHINE DEPARTMENT FLOORPERSON-C Iris Clayton Work Phone: [facility] 07-04-2023 09:55-0500 Body temperature 97.8 [degF] SLOT MACHINE DEPARTMENT FLOORPERSON-C Iris Clayton Work Phone: [facility] 07-04-2023 09:55-0500 Body weight 85.92 kg SLOT MACHINE DEPARTMENT FLOORPERSON-C Iris Clayton Work Phone: [facility] 07-04-2023 09:55-0500 Diastolic blood pressure 76 mm[Hg] SLOT MACHINE DEPARTMENT FLOORPERSON-C Iris Clayton Work Phone: [facility] 07-04-2023 09:55-0500 Heart rate 58 /min SLOT MACHINE DEPARTMENT FLOORPERSON-C Iris Clayton Work Phone: [facility] 07-04-2023 09:55-0500 Respiratory rate 18 /min SLOT MACHINE DEPARTMENT FLOORPERSON-C Iris Clayton Work Phone: [facility] 07-04-2023 09:55-0500 SaO2% (BldA) [Mass fraction] 96 % SLOT MACHINE DEPARTMENT FLOORPERSON-C Iris Clayton Work Phone: [facility] 07-04-2023 09:55-0500 Systolic blood pressure 114 mm[Hg] SLOT MACHINE DEPARTMENT FLOORPERSON-C Iris Clayton Work Phone: [facility] 07-02-2023 09:02-0500 Body mass index (BMI) [Ratio] 34.2 kg/m2 SLOT MACHINE DEPARTMENT FLOORPERSON-C Irisesther Blantonman Work Phone: [facility] 07-02-2023 09:02-0500 Body temperature 97.6 [degF] SLOT MACHINE DEPARTMENT FLOORPERSON-C Irisesther Blantonman Work Phone: [facility] 07-02-2023 09:02-0500 Body weight 84.87 kg SLOT MACHINE DEPARTMENT FLOORPERSON-C Irisesther Blantonman Work Phone: [facility] 07-02-2023 09:02-0500 Diastolic blood pressure 85 mm[Hg] SLOT MACHINE DEPARTMENT FLOORPERSON-C Iris Barkman Work Phone: [facility] 07-02-2023 09:02-0500 Heart rate 55 /min SLOT MACHINE DEPARTMENT FLOORPERSON-C Irisesther Blantonman Work Phone: [facility] 07-02-2023 09:02-0500 Respiratory rate 16 /min SLOT MACHINE DEPARTMENT FLOORPERSON-C Irisesther Clayton Work Phone: [facility] 07-02-2023 09:02-0500 SaO2% (BldA) [Mass fraction] 97 % SLOT MACHINE DEPARTMENT FLOORPERSON-C Irisesther Clayton Work Phone: [facility] 07-02-2023 09:02-0500 Systolic blood pressure 147 mm[Hg] SLOT MACHINE DEPARTMENT FLOORPERSON-C Irisesther Clayton Work Phone: [facility] 06-14-2023 11:00-0400 SaO2% (BldA) [Mass fraction] 93 % SLOT MACHINE DEPARTMENT FLOORPERSON-C Irisesther Clayton Work Phone: [facility] 06-14-2023 09:36-0400 Diastolic blood pressure 59 mm[Hg] SLOT MACHINE DEPARTMENT FLOORPERSON-C Iris Barkman Work Phone: [facility] 06-14-2023 09:36-0400 Heart rate 67 /min SLOT MACHINE DEPARTMENT FLOORPERSON-C Riisesther Blantonman Work Phone: [facility] 06-14-2023 09:36-0400 Systolic blood pressure 117 mm[Hg] SLOT MACHINE DEPARTMENT FLOORPERSON-C Iris Barkman Work Phone: [facility] 06-14-2023 09:01-0400 SaO2% (BldA) [Mass fraction] 96 % SLOT MACHINE DEPARTMENT FLOORPERSON-Rupal Clayton Work Phone: [facility] 06-14-2023 08:23-0400 Body temperature 98.7 [degF] SLOT MACHINE DEPARTMENT FLOORPERSON-Rupal Clayton Work Phone: [facility] 06-14-2023 08:23-0400 Respiratory rate 16 /min SLOT MACHINE DEPARTMENT FLOORPERSON-Rupal Clayton Work Phone: [facility] 06-13-2023 08:55-0400 Inhaled oxygen flow rate 2 L/min SLOT MACHINE DEPARTMENT FLOORPERSON-Rupal Clayton Work Phone: [facility] 06-12-2023 10:22-0400 Body height 157.48 cm SLOT MACHINE DEPARTMENT FLOORPERSON-Rupal Clayton Work Phone: [facility] 06-12-2023 10:22-0400 Body weight 86 kg SLOT MACHINE DEPARTMENT FLOORPERSON-Rupal Clayton Work Phone: [facility] 06-11-2023 19:53-0400 Body mass index (BMI) [Ratio] 34.7 kg/m2 SLOT MACHINE DEPARTMENT FLOORPERSON-Rupal Clayton Work Phone: [facility] 06-11-2023 19:40-0400 Diastolic blood pressure 67 mm[Hg] [facility] 06-11-2023 19:40-0400 Systolic blood pressure 115 mm[Hg] [facility] 06-11-2023 18:46-0400 Heart rate 79 /min [facility] 06-11-2023 18:46-0400 Respiratory rate 16 /min [facility] 06-11-2023 18:46-0400 SaO2% (BldA) [Mass fraction] 92 % [facility] 06-11-2023 12:58-0400 Body height 157.48 cm [facility] 06-11-2023 12:58-0400 Body mass index (BMI) [Ratio] 26.9 kg/m2 [facility] 06-11-2023 12:58-0400 Body temperature 98.2 [degF] [facility] 06-11-2023 12:58-0400 Body weight 66.67 kg [facility] 05-01-2023 11:58-0400 Diastolic blood pressure 63 mm[Hg] SL[employer] MACHINE DEPARTMENT FLOORPERSON-C Iris Clayton Work Phone: [facility] 05-01-2023 11:58-0400 Heart rate 61 /min SL[employer] MACHINE DEPARTMENT FLOORPERSON-C Iris Clayton Work Phone: [facility] 05-01-2023 11:58-0400 Respiratory rate 16 /min SLOT MACHINE DEPARTMENT FLOORPERSON-C Iris Clayton Work Phone: [facility] 05-01-2023 11:58-0400 SaO2% (BldA) [Mass fraction] 94 % SL[employer] MACHINE DEPARTMENT FLOORPERSON-C Iris Clayton Work Phone: [facility] 05-01-2023 11:58-0400 Systolic blood pressure 112 mm[Hg] SLOT MACHINE DEPARTMENT FLOORPERSON-C Iris Clayton Work Phone: [facility] 05-01-2023 10:13-0400 Inhaled oxygen flow rate 2 L/min SL[employer] MACHINE DEPARTMENT FLOORPERSON-C Iris Clayton Work Phone: [facility] 05-01-2023 08:16-0400 Body height 157.48 cm SLOT MACHINE DEPARTMENT FLOORPERSON-C Iris Clayton Work Phone: [facility] 05-01-2023 08:16-0400 Body mass index (BMI) [Ratio] 32.9 kg/m2 SL[employer] MACHINE DEPARTMENT FLOORPERSON-C Iris Clayton Work Phone: [facility] 05-01-2023 08:16-0400 Body temperature 97.4 [degF] SL[employer] MACHINE DEPARTMENT FLOORPERSON-C Iris Clayton Work Phone: [facility] 05-01-2023 08:16-0400 Body weight 81.64 kg SLOT MACHINE DEPARTMENT FLOORPERSON-C Iris Clayton Work Phone: [facility] 01-29-2023 10:54-0400 Body height 157.48 cm SLOT MACHINE DEPARTMENT FLOORPERSON-C Iris Clayton Work Phone: [facility] 01-29-2023 10:54-0400 Body mass index (BMI) [Ratio] 35.8 kg/m2 SL[employer] MACHINE DEPARTMENT FLOORPERSON-C Iris Clayton Work Phone: [facility] 01-29-2023 10:54-0400 Body temperature 98.2 [degF] SL[employer] MACHINE DEPARTMENT FLOORPERSON-C Iris Clayton Work Phone: [facility] 01-29-2023 10:54-0400 Body weight 88.9 kg SLOT MACHINE DEPARTMENT FLOORPERSON-C Iris Clayton Work Phone: [facility] 01-29-2023 10:54-0400 Diastolic blood pressure 72 mm[Hg] SL[employer] MACHINE DEPARTMENT FLOORPERSON-C Iris Clayton Work Phone: [facility] 01-29-2023 10:54-0400 Heart rate 75 /min SL[employer] MACHINE DEPARTMENT FLOORPERSON-C Iris Clayton Work Phone: [facility] 01-29-2023 10:54-0400 Respiratory rate 17 /min SL[employer] MACHINE DEPARTMENT FLOORPERSON-C Iris Calyton Work Phone: [facility] 01-29-2023 10:54-0400 SaO2% (BldA) [Mass fraction] 94 % SL[employer] MACHINE DEPARTMENT FLOORPERSON-C Iris Clayton Work Phone: [facility] 01-29-2023 10:54-0400 Systolic blood pressure 117 mm[Hg] SL[employer] MACHINE DEPARTMENT FLOORPERSON-C Iris Clayton Work Phone: [facility] 10-01-2022 08:44-0500 Body height 157.[address] Sharif Christianson Work Phone: [facility] 10-01-2022 08:44-0500 Body mass index (BMI) [Ratio] 32.1 kg/m2 Dr. Sharif Christianson Work Phone: [facility] 10-01-2022 08:44-0500 Body weight 79.[address] Sharif Christianson Work Phone: [facility] 10-01-2022 08:44-0500 Diastolic blood pressure 72 mm[Hg] Dr. Sharif Christianson Work Phone: [facility] 10-01-2022 08:44-0500 Heart rate 66 /min Dr. Sharif Christianson Work Phone: [facility] 10-01-2022 08:44-0500 Respiratory rate 18 /min Dr. Sharif Christianson Work Phone: [facility] 10-01-2022 08:44-0500 Systolic blood pressure 125 mm[Hg] Dr. Sharif Christianson Work Phone: [facility] 07-30-2022 09:47-0500 Body height 157.[address] Sharif Christianson Work Phone: [facility] Work Phone: 07-30-2022 09:45-0500 Body mass index (BMI) [Ratio] 30.5 kg/m2 Dr. Sharif Christianson Work Phone: [facility] 07-30-2022 09:45-0500 Body temperature 97.4 [degF] Dr. Sharif Christianson Work Phone: [facility] 07-30-2022 09:45-0500 Body weight 75.[address] Sharif Christianson Work Phone: [facility] 07-30-2022 09:45-0500 Diastolic blood pressure 63 mm[Hg] Dr. Sharif Christianson Work Phone: [facility] 07-30-2022 09:45-0500 Heart rate 55 /min Dr. Sharif Christianson Work Phone: [facility] 07-30-2022 09:45-0500 Respiratory rate 16 /min Dr. Sharif Christianson Work Phone: [facility] 07-30-2022 09:45-0500 SaO2% (BldA) [Mass fraction] 98 % Dr. Sharif Christianosn Work Phone: [facility] 07-30-2022 09:45-0500 Systolic blood pressure 98 mm[Hg] Dr. Sharif Christianson Work Phone: [facility] 05-30-2022 08:32-0400 Body height 157.[address] Sharif Christianson Work Phone: [facility] Work Phone: 05-30-2022 08:32-0400 Body mass index (BMI) [Ratio] 29.2 kg/m2 Dr. Sharif Christianson Work Phone: [facility] Work Phone: 05-30-2022 08:32-0400 Body weight 72.[address] Sharif Christianson Work Phone: [facility] Work Phone: 05-30-2022 08:32-0400 Diastolic blood pressure 82 mm[Hg] Dr. Sharif Christianson Work Phone: [facility] Work Phone: 05-30-2022 08:32-0400 Heart rate 69 /min Dr. Sharif Christianson Work Phone: [facility] Work Phone: 05-30-2022 08:32-0400 Respiratory rate 18 /min Dr. Sharif Christianson Work Phone: [facility] Work Phone: 05-30-2022 08:32-0400 SaO2% (BldA) [Mass fraction] 98 % Dr. Sharif Christianson Work Phone: [facility] Work Phone: 05-30-2022 08:32-0400 Systolic blood pressure 134 mm[Hg] Dr. Sharif Christianson Work Phone: [facility] Work Phone: 05-23-2022 10:42-0400 Body height 160 cm Bryce Greer MD Work Phone: [facility] 05-23-2022 10:42-0400 Body weight 73 kg Bryce Greer MD Work Phone: [facility] 05-23-2022 10:42-0400 Diastolic blood pressure 72 mm[Hg] Bryce Greer MD Work Phone: [facility] 05-23-2022 10:42-0400 Heart rate 65 /min Bryce Greer MD Work Phone: [facility] 05-23-2022 10:42-0400 SaO2% (BldA) [Mass fraction] 98 % Bryce Greer MD Work Phone: [facility] 05-23-2022 10:42-0400 Systolic blood pressure 128 mm[Hg] Bryce Greer MD Work Phone: [facility] 05-07-2022 10:53-0400 Body height 160 cm Bryce Greer MD Work Phone: [facility] 05-07-2022 10:53-0400 Body weight 71 kg Bryce Greer MD Work Phone: [facility] 05-07-2022 10:53-0400 Diastolic blood pressure 78 mm[Hg] Bryce Greer MD Work Phone: [facility] 05-07-2022 10:53-0400 Heart rate 58 /min Bryce Greer MD Work Phone: [facility] 05-07-2022 10:53-0400 SaO2% (BldA) [Mass fraction] 98 % Bryce Greer MD Work Phone: [facility] 05-07-2022 10:53-0400 Systolic blood pressure 112 mm[Hg] Bryce Greer MD Work Phone: [facility] 05-02-2022 16:33-0400 Body temperature 97.6 [degF] Dr. Sharif Christianson Work Phone: [facility] 05-02-2022 16:33-0400 Diastolic blood pressure 73 mm[Hg] Dr. Sharif Christianson Work Phone: [facility] 05-02-2022 16:33-0400 Heart rate 64 /min Dr. Sharif Christianson Work Phone: [facility] 05-02-2022 16:33-0400 Respiratory rate 16 /min Dr. Sharif Christianson Work Phone: [facility] 05-02-2022 16:33-0400 SaO2% (BldA) [Mass fraction] 97 % Dr. Sharif Christianson Work Phone: [facility] 05-02-2022 16:33-0400 Systolic blood pressure 127 mm[Hg] Dr. Sharif Christianson Work Phone: [facility] 05-02-2022 14:24-0400 Body mass index (BMI) [Ratio] 28.1 kg/m2 Dr. Sharif Christianson Work Phone: [facility] 05-02-2022 14:24-0400 Body weight 69.[address] Sharif Christianson Work Phone: [facility] 04-29-2022 11:04-0400 Body mass index (BMI) [Ratio] 28.3 kg/m2 Dr. Sharif Christianson Work Phone: [facility] Work Phone: 04-29-2022 11:04-0400 Body temperature 97.1 [degF] Dr. Sharif Christianson Work Phone: [facility] Work Phone: 04-29-2022 11:04-0400 Body weight 70.[address] Sharif Christianson Work Phone: [facility] Work Phone: 04-29-2022 11:04-0400 Diastolic blood pressure 74 mm[Hg] Dr. Sharif Christianson Work Phone: [facility] Work Phone: 04-29-2022 11:04-0400 Heart rate 65 /min Dr. Sharif Christianson Work Phone: [facility] Work Phone: 04-29-2022 11:04-0400 Respiratory rate 18 /min Dr. Sharif Christianson Work Phone: [facility] Work Phone: 04-29-2022 11:04-0400 SaO2% (BldA) [Mass fraction] 97 % Dr. Sharif Christianson Work Phone: [facility] Work Phone: 04-29-2022 11:04-0400 Systolic blood pressure 117 mm[Hg] Dr. Sharif Christianson Work Phone: [facility] Work Phone: 04-23-2022 12:21-0400 Diastolic blood pressure 49 mm[Hg] Dr. Sharif Christianson Work Phone: [facility] Work Phone: 04-23-2022 12:21-0400 Heart rate 59 /min Dr. Sharif Christianson Work Phone: [facility] Work Phone: 04-23-2022 12:21-0400 Systolic blood pressure 117 mm[Hg] Dr. Sharif Christianson Work Phone: [facility] Work Phone: 04-23-2022 10:19-0400 Body height 157.[address] Sharif Christianson Work Phone: [facility] Work Phone: 04-23-2022 10:19-0400 Body mass index (BMI) [Ratio] 26.5 kg/m2 Dr. Sharif Christianson Work Phone: [facility] Work Phone: 04-23-2022 10:19-0400 Body temperature 96.9 [degF] Dr. Sharif Christianson Work Phone: [facility] Work Phone: 04-23-2022 10:19-0400 Body weight 65.[address] Sharif Christianson Work Phone: [facility] Work Phone: 04-23-2022 10:19-0400 Respiratory rate 18 /min Dr. Sharif Christianson Work Phone: [facility] Work Phone: 04-23-2022 10:19-0400 SaO2% (BldA) [Mass fraction] 100 % Dr. Sharif Christianson Work Phone: [facility] Work Phone: 04-18-2022 13:49-0400 Body height 160 cm Bryce Greer MD Work Phone: [facility] 04-18-2022 13:49-0400 Body weight 68.2 kg Bryce Greer MD Work Phone: [facility] 04-18-2022 13:49-0400 Diastolic blood pressure 70 mm[Hg] Bryce Greer MD Work Phone: [facility] 04-18-2022 13:49-0400 Heart rate 76 /min Bryce Greer MD Work Phone: [facility] 04-18-2022 13:49-0400 SaO2% (BldA) [Mass fraction] 96 % Bryce Greer MD Work Phone: [facility] 04-18-2022 13:49-0400 Systolic blood pressure 110 mm[Hg] Bryce Greer MD Work Phone: [facility] 04-17-2022 13:14-0400 Body temperature 96 [degF] Dr. Sharif Christianson Work Phone: [facility] Work Phone: 04-17-2022 13:14-0400 Diastolic blood pressure 50 mm[Hg] Dr. Sharif Christianson Work Phone: [facility] Work Phone: 04-17-2022 13:14-0400 Heart rate 52 /min Dr. Sharif Christianson Work Phone: [facility] Work Phone: 04-17-2022 13:14-0400 Respiratory rate 18 /min Dr. Sharif Christianson Work Phone: [facility] Work Phone: 04-17-2022 13:14-0400 SaO2% (BldA) [Mass fraction] 94 % Dr. Sharif Christianson Work Phone: [facility] Work Phone: 04-17-2022 13:14-0400 Systolic blood pressure 118 mm[Hg] Dr. Sharif Christianson Work Phone: [facility] Work Phone: 04-16-2022 07:34-0400 Body temperature 98.7 [degF] Dr. Sharif Christianson Work Phone: [facility] Work Phone: 04-16-2022 07:34-0400 Diastolic blood pressure 66 mm[Hg] Dr. Sharif Christianson Work Phone: [facility] Work Phone: 04-16-2022 07:34-0400 Heart rate 56 /min Dr. Sharif Christianson Work Phone: [facility] Work Phone: 04-16-2022 07:34-0400 Respiratory rate 16 /min Dr. Sharif Christianson Work Phone: [facility] Work Phone: 04-16-2022 07:34-0400 SaO2% (BldA) [Mass fraction] 97 % Dr. Sharif Christianson Work Phone: [facility] Work Phone: 04-16-2022 07:34-0400 Systolic blood pressure 132 mm[Hg] Dr. Sharif Christianson Work Phone: [facility] Work Phone: 04-13-2022 12:30-0400 Body height 157.[address] Sharif Christianson Work Phone: [facility] Work Phone: 04-13-2022 12:30-0400 Body weight 67.[address] Sharif Christianson Work Phone: [facility] Work Phone: 04-05-2022 16:36-0400 Body mass index (BMI) [Ratio] 24.5 kg/m2 Dr. Sharif Christianson Work Phone: [facility] Work Phone: 03-28-2022 12:00-0400 Diastolic blood pressure 54 mm[Hg] Dr. Sharif Christianson Work Phone: [facility] Work Phone: 03-28-2022 12:00-0400 Heart rate 65 /min Dr. Sharif Christianson Work Phone: [facility] Work Phone: 03-28-2022 12:00-0400 Inhaled oxygen flow rate 2 L/min Dr. Sharfi Christianson Work Phone: [facility] Work Phone: 03-28-2022 12:00-0400 Respiratory rate 18 /min Dr. Sharif Christianson Work Phone: [facility] Work Phone: 03-28-2022 12:00-0400 SaO2% (BldA) [Mass fraction] 97 % Dr. Sharif Christianson Work Phone: [facility] Work Phone: 03-28-2022 12:00-0400 Systolic blood pressure 122 mm[Hg] Dr. Sharif Christianson Work Phone: [facility] Work Phone: 03-28-2022 11:15-0400 Body temperature 96.3 [degF] Dr. Sharif Christianson Work Phone: [facility] Work Phone: 03-28-2022 10:32-0400 Body height 157.[address] Sharif Christianson Work Phone: [facility] Work Phone: 03-28-2022 10:32-0400 Body mass index (BMI) [Ratio] 31.7 kg/m2 Dr. Sharif Christianson Work Phone: [facility] Work Phone: 03-28-2022 10:32-0400 Body weight 78.[address] Sharif Christianson Work Phone: [facility] Work Phone: 03-25-2022 15:17-0400 Body temperature 97.5 [degF] Dr. Sharif Christianson Work Phone: [facility] Work Phone: 03-25-2022 15:17-0400 Diastolic blood pressure 61 mm[Hg] Dr. Sharif Christianson Work Phone: [facility] Work Phone: 03-25-2022 15:17-0400 Heart rate 75 /min Dr. Sharif Christianson Work Phone: [facility] Work Phone: 03-25-2022 15:17-0400 Respiratory rate 16 /min Dr. Sharif Christianson Work Phone: [facility] Work Phone: 03-25-2022 15:17-0400 SaO2% (BldA) [Mass fraction] 95 % Dr. Sharif Christianson Work Phone: [facility] Work Phone: 03-25-2022 15:17-0400 Systolic blood pressure 117 mm[Hg] Dr. Sharif Christianson Work Phone: [facility] Work Phone: 03-25-2022 12:50-0400 Body mass index (BMI) [Ratio] 28.3 kg/m2 Dr. Sharif Christianson Work Phone: [facility] Work Phone: 03-25-2022 12:50-0400 Body weight 70.[address] Sharif Christianson Work Phone: [facility] Work Phone: 03-12-2022 10:36-0400 Body height 160 cm Bryce Greer MD Work Phone: [facility] 03-12-2022 10:36-0400 Body weight 74 kg Bryce Greer MD Work Phone: [facility] 03-12-2022 10:36-0400 Diastolic blood pressure 58 mm[Hg] Bryce Greer MD Work Phone: [facility] 03-12-2022 10:36-0400 Heart rate 81 /min Bryce Greer MD Work Phone: [facility] 03-12-2022 10:36-0400 SaO2% (BldA) [Mass fraction] 98 % Bryce Greer MD Work Phone: [facility] 03-12-2022 10:36-0400 Systolic blood pressure 106 mm[Hg] Bryce Greer MD Work Phone: [facility] 03-04-2022 13:49-0400 Body height 160.[address] Sharif Christianson Work Phone: [facility] Work Phone: 03-04-2022 13:39-0400 Body mass index (BMI) [Ratio] 28 kg/m2 Dr. Sharif Christianson Work Phone: [facility] Work Phone: 03-04-2022 13:39-0400 Body temperature 97.6 [degF] Dr. Sharif Christianson Work Phone: [facility] Work Phone: 03-04-2022 13:39-0400 Body weight 71.[address] Sharif Christianson Work Phone: [facility] Work Phone: 03-04-2022 13:39-0400 Diastolic blood pressure 58 mm[Hg] Dr. Sharif Christianson Work Phone: [facility] Work Phone: 03-04-2022 13:39-0400 Heart rate 88 /min Dr. Sharif Christianson Work Phone: [facility] Work Phone: 03-04-2022 13:39-0400 Respiratory rate 16 /min Dr. Sharif Christianson Work Phone: [facility] Work Phone: 03-04-2022 13:39-0400 SaO2% (BldA) [Mass fraction] 99 % Dr. Sharif Christianson Work Phone: [facility] Work Phone: 03-04-2022 13:39-0400 Systolic blood pressure 93 mm[Hg] Dr. Sharif Christianson Work Phone: [facility] Work Phone: 02-14-2022 10:53-0400 Body height 160 cm Bryce Greer MD Work Phone: [facility] 02-14-2022 10:53-0400 Body weight 72 kg Bryce Greer MD Work Phone: [facility] 02-14-2022 10:53-0400 Diastolic blood pressure 59 mm[Hg] Bryce Greer MD Work Phone: [facility] 02-14-2022 10:53-0400 Heart rate 64 /min Bryce Greer MD Work Phone: [facility] 02-14-2022 10:53-0400 Respiratory rate 16 /min Bryce Greer MD Work Phone: [facility] 02-14-2022 10:53-0400 SaO2% (BldA) [Mass fraction] 98 % Bryce Greer MD Work Phone: [facility] 02-14-2022 10:53-0400 Systolic blood pressure 107 mm[Hg] Bryce Greer MD Work Phone: [facility] 01-28-2022 10:44-0400 Body mass index (BMI) [Ratio] 27.6 kg/m2 Dr. Sharif Christianson Work Phone: [facility] Work Phone: 01-28-2022 10:44-0400 Body weight 70.[address] Sharif Christianson Work Phone: [facility] Work Phone: 01-28-2022 10:44-0400 Diastolic blood pressure 68 mm[Hg] Dr. Sharif Christianson Work Phone: [facility] Work Phone: 01-28-2022 10:44-0400 Heart rate 86 /min Dr. Sharif Christianson Work Phone: [facility] Work Phone: 01-28-2022 10:44-0400 Respiratory rate 18 /min Dr. Sharif Christianson Work Phone: [facility] Work Phone: 01-28-2022 10:44-0400 SaO2% (BldA) [Mass fraction] 95 % Dr. Sharif Christianson Work Phone: [facility] Work Phone: 01-28-2022 10:44-0400 Systolic blood pressure 133 mm[Hg] Dr. Sharif Christianson Work Phone: [facility] Work Phone: 06-07-2022 13:30-0400 Body height 160 cm [address] 1 [facility] 01-22-2022 13:30-0400 Body temperature 97.7 [degF] Pst 1 [facility] 01-22-2022 13:30-0400 Body weight 71.67 kg Pst 1 [facility] 01-22-2022 13:30-0400 Diastolic blood pressure 64 mm[Hg] Pst 1 [facility] 01-22-2022 13:30-0400 Heart rate 84 /min Pst 1 [facility] 01-22-2022 13:30-0400 Respiratory rate 14 /min Pst 1 [facility] 01-22-2022 13:30-0400 SaO2% (BldA) [Mass fraction] 99 % Pst 1 [facility] 01-22-2022 13:30-0400 Systolic blood pressure 110 mm[Hg] Pst 1 [facility] 01-15-2022 11:07-0400 Body height 160 cm Bryce Greer MD Work Phone: [facility] 01-15-2022 11:07-0400 Body weight 71.8 kg Bryce Greer MD Work Phone: [facility] 01-15-2022 11:07-0400 Diastolic blood pressure 82 mm[Hg] Bryce Greer MD Work Phone: [facility] 01-15-2022 11:07-0400 Heart rate 89 /min Bryce Greer MD Work Phone: [facility] 01-15-2022 11:07-0400 SaO2% (BldA) [Mass fraction] 98 % Bryce Greer MD Work Phone: [facility] 01-15-2022 11:07-0400 Systolic blood pressure 136 mm[Hg] Bryce Greer MD Work Phone: [facility] 12-17-2021 14:55-0400 Diastolic blood pressure 61 mm[Hg] Dr. Sharif Christianson Work Phone: [facility] Work Phone: 12-17-2021 14:55-0400 Heart rate 75 /min Dr. Sharif Christianson Work Phone: [facility] Work Phone: 12-17-2021 14:55-0400 Respiratory rate 16 /min Dr. Sharif Christianson Work Phone: [facility] Work Phone: 12-17-2021 14:55-0400 SaO2% (BldA) [Mass fraction] 95 % Dr. Sharif Christianson Work Phone: [facility] Work Phone: 12-17-2021 14:55-0400 Systolic blood pressure 107 mm[Hg] Dr. Sharif Christianson Work Phone: [facility] Work Phone: 12-17-2021 13:09-0400 Body height 160.[address] Sharif Christianson Work Phone: [facility] Work Phone: 12-17-2021 13:09-0400 Body mass index (BMI) [Ratio] 29.5 kg/m2 Dr. Sharif Christianson Work Phone: [facility] Work Phone: 12-17-2021 13:09-0400 Body temperature 98.5 [degF] Dr. Sharif Christianson Work Phone: [facility] Work Phone: 12-17-2021 13:09-0400 Body weight 75.[address] Sharif Christianson Work Phone: [facility] Work Phone: 12-05-2021 13:40-0400 Body mass index (BMI) [Ratio] 27.5 kg/m2 Dr. Sharif Christianson Work Phone: [facility] Work Phone: 12-05-2021 13:40-0400 Body temperature 98.2 [degF] Dr. Sharif Christianson Work Phone: [facility] Work Phone: 12-05-2021 13:40-0400 Body weight 70.[address] Sharif Christianson Work Phone: [facility] Work Phone: 12-05-2021 13:40-0400 Diastolic blood pressure 69 mm[Hg] Dr. Sharif Christianson Work Phone: [facility] Work Phone: 12-05-2021 13:40-0400 Heart rate 90 /min Dr. Sharif Christianson Work Phone: [facility] Work Phone: 12-05-2021 13:40-0400 Respiratory rate 16 /min Dr. Sharif Christianson Work Phone: [facility] Work Phone: 12-05-2021 13:40-0400 SaO2% (BldA) [Mass fraction] 98 % Dr. Sharif Christianson Work Phone: [facility] Work Phone: 12-05-2021 13:40-0400 Systolic blood pressure 108 mm[Hg] Dr. Sharif Christianson Work Phone: [facility] Work Phone: 12-05-2021 13:40-0400 Body mass index (BMI) [Ratio] 27.5 kg/m2 Dr. Sharif Christianson Work Phone: [facility] Work Phone: 12-05-2021 13:40-0400 Body temperature 98.2 [degF] Dr. Sharif Christianson Work Phone: [facility] Work Phone: 12-05-2021 13:40-0400 Body weight 70.[address] Sharif Christianson Work Phone: [facility] Work Phone: 12-05-2021 13:40-0400 Diastolic blood pressure 69 mm[Hg] Dr. Sharif Christianson Work Phone: [facility] Work Phone: 12-05-2021 13:40-0400 Heart rate 90 /min Dr. Sharif Christianson Work Phone: [facility] Work Phone: 12-05-2021 13:40-0400 Respiratory rate 16 /min Dr. Sharif Christianson Work Phone: [facility] Work Phone: 12-05-2021 13:40-0400 SaO2% (BldA) [Mass fraction] 98 % Dr. Sharif Christianson Work Phone: [facility] Work Phone: 12-05-2021 13:40-0400 Systolic blood pressure 108 mm[Hg] Dr. Sharif Christianson Work Phone: [facility] Work Phone: 10-27-2021 22:37-0500 Body temperature 97.9 [degF] Dr. Sharif Christianson Work Phone: [facility] Work Phone: 10-27-2021 22:37-0500 Diastolic blood pressure 101 mm[Hg] Dr. Sharif Christianson Work Phone: [facility] Work Phone: 10-27-2021 22:37-0500 Heart rate 84 /min Dr. Sharif Christianson Work Phone: [facility] Work Phone: 10-27-2021 22:37-0500 Respiratory rate 24 /min Dr. Sharif Christianson Work Phone: [facility] Work Phone: 10-27-2021 22:37-0500 SaO2% (BldA) [Mass fraction] 98 % Dr. Sharif Christianson Work Phone: [facility] Work Phone: 10-27-2021 22:37-0500 Systolic blood pressure 148 mm[Hg] Dr. Sharif Christianson Work Phone: [facility] Work Phone: 10-27-2021 20:33-0500 Body mass index (BMI) [Ratio] 31.4 kg/m2 Dr. Sharif Christianson Work Phone: [facility] Work Phone: 10-27-2021 20:33-0500 Body weight 80.[address] Sharif Christianson Work Phone: [facility] Work Phone: 10-01-2021 09:37-0500 Body mass index (BMI) [Ratio] 29.5 kg/m2 Dr. Sharif Christianson Work Phone: [facility] Work Phone: 10-01-2021 09:37-0500 Body weight 75.[address] Sharif Christianson Work Phone: [facility] Work Phone: 10-01-2021 09:37-0500 Diastolic blood pressure 80 mm[Hg] Dr. Sharif Christianson Work Phone: [facility] Work Phone: 10-01-2021 09:37-0500 Heart rate 71 /min Dr. Sharif Christianson Work Phone: [facility] Work Phone: 10-01-2021 09:37-0500 Respiratory rate 18 /min Dr. Sharif Christianson Work Phone: [facility] Work Phone: 10-01-2021 09:37-0500 Systolic blood pressure 147 mm[Hg] Dr. Sharif Christianson Work Phone: [facility] Work Phone: 09-17-2021 09:55-0500 Body mass index (BMI) [Ratio] 31.8 kg/m2 Dr. Sharif Christianson Work Phone: [facility] Work Phone: 09-17-2021 09:55-0500 Body temperature 97.7 [degF] Dr. Sharif Christianson Work Phone: [facility] Work Phone: 09-17-2021 09:55-0500 Body weight 79.[address] Sharif Christianson Work Phone: [facility] Work Phone: 09-17-2021 09:55-0500 Diastolic blood pressure 74 mm[Hg] Dr. Sharif Christianson Work Phone: [facility] Work Phone: 09-17-2021 09:55-0500 Heart rate 72 /min Dr. Sharif Christianson Work Phone: [facility] Work Phone: 09-17-2021 09:55-0500 Respiratory rate 16 /min Dr. Sharif Christianson Work Phone: [facility] Work Phone: 09-17-2021 09:55-0500 SaO2% (BldA) [Mass fraction] 98 % Dr. Sharif Christianson Work Phone: [facility] Work Phone: 09-17-2021 09:55-0500 Systolic blood pressure 122 mm[Hg] Dr. Sharif Christianson Work Phone: [facility] Work Phone: 10-02-2020 07:56-0500 Body mass index (BMI) [Ratio] 34.4 kg/m2 Dr. Sharif Christianson Work Phone: [facility] Work Phone: 12-05-2016 09:47-0400 BMI (Body Mass Index) 40.97 kg/m2 Arely Smart RN [facility] Work Phone: 12-05-2016 09:47-0400 BP [...] Work Phone: 12-05-2016 09:47-0400 Weight 101.61 kg [facility] Work Phone: 05-30-2016 15:20-0400 BSA (Body Surface Area) 2 m2 [facility] Work Phone: Encounters Encounter Date Encounter Type Care Provider Facility Start: 06-28-2025 End: 06-28-2025 ambulatory Sharif Christianson Facility:[facility] Start: 06-22-2025 ambulatory Sharif Christianson Facilit y:[facility] Start: 06-10-2025 ambulatory Sharif Christianson Facilit y:[facility] Start: 06-10-2025 End: 06-10-2025 ambulatory Sharif Christianson Facility:[facility] Start: 06-07-[address] Ines Waldrop MD -[facility] Start: 06-07-2025 End: 06-07-2025 Patient encounter procedure Sabi Lynn NP- -[facility] Work Phone: Start: 06-07-2025 End: 06-07-[address] Sharif Christianson MD Work Phone: [facility] Start: 06-01-2025 End: 06-01-[address] Dave Rossi MD -[facility] Work Phone: Start: 06-01-2025 End: 06-01-[address] Sharif Christianson MD Work Phone: -[facility] Start: 05-17-2025 End: 05-17-[address] Shannan Waldrop MD -[facility] Work Phone: Start: 05-17-2025 End: 05-17-2025 Dr. Shannan Waldrop MD -[facility] Work Phone: Start: 05-17-2025 End: 05-17-[address] Sharif Christianson MD Work Phone: [facility] Start: 04-26-[address] Ines Waldrop MD -[facility] Start: 04-26-2025 End: 04-26-[address] Shannan Waldrop MD -[facility] Work Phone: Start: 04-26-2025 End: 04-26-2025 Dr. Shannan Waldrop MD -[facility] Work Phone: Start: 04-26-2025 End: 04-26-[address] Sharif Christianson MD Work Phone: [facility] Start: 04-21-2025 End: 04-21-[address] Sharif Christianson MD Work Phone: -[facility] Start: 04-21-2025 End: 04-21-[address] [facility] Start: 04-21-2025 End: 04-21-2025 Dr. Sharif Christianson MD -[facility]atory [facility] Start: 04-21-2025 End: 04-21-2025 ambulatory Sharif Christianson Facility:[facility] Start: 04-05-[address] Ines Waldrop MD -[facility] Start: 04-05-2025 End: 04-05-[address] Eder Davis MD -[facility] Work Phone: Start: 04-05-2025 End: 04-05-2025 Dr. Shannan Waldrop MD -[facility] Work Phone: Start: 04-05-2025 End: 04-05-[address] Sharif Christianson MD Work Phone: -[facility] Start: 04-05-2025 End: 04-05-[address] Sharif Christianson MD Work Phone: -Cat Scan [facility] Start: 04-05-2025 End: 04-05-2025 Patient encounter procedure Xenia Gilliland PA -Cat Scan [facility] Work Phone: Start: 04-05-2025 End: 04-05-2025 Xenia Gilliland PA -Cat Scan [facility] Work Phone: Start: 04-05-2025 End: 04-05-2025 ambulatory Sharif Christianson Facility:[facility] Start: 03-28-2025 End: 03-28-[address] Sharif Christianson MD Work Phone: -Cat Scan [facility] Start: 03-28-2025 End: 03-28-[address] Shannan Waldrop MD -Cat Scan [facility] Work Phone: Start: 03-28-2025 End: 03-28-2025 Dr. Shannan Waldrop MD -Cat Scan [facility] Work Phone: Start: 03-28-2025 End: 03-28-2025 ambulatory Sharif Christianson Facility:[facility] Start: 03-15-[address] Ines Waldrop MD -[facility] Start: 03-15-2025 End: 03-15-[address] Nic Hall MD -[facility] Work Phone: Start: 03-15-2025 End: 03-15-2025 Dr. Nic Hall MD -[facility] Work Phone: Start: 03-15-2025 End: 03-15-[address] Sharif Christianson MD Work Phone: -[facility] Start: 03-08-2025 End: 03-08-[address] Sharif Christianson MD Work Phone: -[facility] Start: 03-08-2025 End: 03-08-2025 Patient encounter procedure Xenia Gilliland NE -Radiology [facility] Work Phone: Start: 03-08-2025 End: 03-08-2025 Xenia WALKER -Radiology [facility] Work Phone: Start: 03-08-2025 End: 03-08-2025 Patient encounter procedure Xenia WALKER -[facility] Work Phone: Start: 03-08-2025 End: 03-08-2025 Xenia WALKER -[facility] Work Phone: Start: 03-08-2025 End: 03-08-[address] Sharif Christianson MD Work Phone: -[facility] Start: 03-08-2025 End: 03-08-2025 ambulatory Sharif Christianson Facility:[facility] Start: 02-22-[address] Ines Waldrop MD -[facility] Start: 02-22-2025 End: 02-22-2025 Patient encounter procedure Sabi Lynn NP-C -[facility] Work Phone: Start: 02-22-2025 End: 02-22-2025 Sabi DAVISON -[facility] Work Phone: Start: 02-22-2025 End: 02-22-[address] Sharif Christianson MD Work Phone: -[facility] Start: 01-25-2025 End: 01-25-[address] Shannan Waldrop MD -[facility] Work Phone: Start: 01-25-2025 End: 01-25-2025 Dr. Shannan Waldrop MD -[facility] Work Phone: Start: 01-25-2025 End: 01-25-[address] Sharif Christianson MD Work Phone: [facility] Work Phone: Start: 01-25-[address] Ines Waldrop MD -[facility] Start: 01-20-2025 End: 01-20-[address] Sharif Christianson MD Work Phone: [facility] Work Phone: Start: 01-20-2025 End: 01-20-[address] Sharif Christianson MD -[facility] Start: 01-20-2025 End: 01-20-2025 Dr. Sharif Christianson MD -[facility] Start: 01-20-2025 End: 01-20-2025 ambulatory Sharif Christianson Facility:[facility] Start: 01-04-[address] Ines Waldrop MD -[facility] Start: 01-04-2025 End: 01-04-[address] Shannan Waldrop MD -[facility] Work Phone: Start: 01-04-2025 End: 01-04-[address] Sharif Christianson MD Work Phone: [facility] Work Phone: Start: 12-14-2024 End: 12-14-[address] Shannan Waldrop MD -[facility] Work Phone: Start: 12-14-2024 End: 12-14-2024 ambulatory Sharif Christianson Facility:[facility] Start: 11-30-2024 End: 11-30-[address] Sharif Christianson MD Work Phone: [facility] Work Phone: Start: 11-30-2024 End: 11-30-2024 Patient encounter procedure Sabi Lynn SLOT MACHINE DEPARTMENT FLOORPERSON-C -Cat Scan, [facility] Work Phone: Start: 11-30-2024 End: 11-30-2024 ambulatory Sharif Christianson Facility:[facility] Start: 11-23-[address] Ines Waldrop MD -[facility] Start: 11-23-2024 End: 11-23-2024 Patient encounter procedure Sabi Lynn NP-C -[facility] Work Phone: Start: 11-23-2024 End: 11-23-2024 ambulatory Sharif Christianson Facility:[facility] Start: 11-10-2024 End: 11-10-2024 Patient encounter procedure Xenia WALKER -[facility] Work Phone: Start: 11-10-2024 End: 11-10-2024 ambulatory Sharif Christianson Facility:[facility] Start: 11-02-2024 End: 11-02-2024 Patient encounter procedure Sabi Lynn SLOT MACHINE DEPARTMENT FLOORPERSON-C -[facility] Work Phone: Start: 11-02-2024 End: 11-02-2024 ambulatory Sharif Christianson Facility:[facility] Start: 10-12-2024 End: 10-12-[address] Shannan Waldrop MD -[facility] Work Phone: Start: 10-12-2024 End: 10-12-2024 ambulatory Shannan Waldrop Facility:[facility] Start: 09-21-2024 End: 09-21-2024 Patient encounter procedure aSbi Lynn SLOT MACHINE DEPARTMENT FLOORPERSON-C -[facility] Work Phone: Start: 09-21-2024 End: 09-21-2024 ambulatory Sabi Lynn SLOT MACHINE DEPARTMENT FLOORPERSON Facility:[facility] Start: 09-20-2024 End: 09-20-[address] Sharif Christianson MD -Cardiovascular Services Work Phone: Start: 09-20-2024 End: 09-20-2024 ambulatory Sharif Christianson Facility:[facility] Start: 09-06-2024 End: 09-06-[address] Shannan Waldrop MD -[facility] Work Phone: Start: 09-06-2024 End: 09-06-2024 ambulatory Shannan Waldrop Facility:[facility] Start: 08-31-2024 End: 08-31-[address] Shannan Waldrop MD -Cat Scan, [facility] Work Phone: Start: 08-31-2024 End: 08-31-[address] Sharif Christianson MD -Laboratory, Specimen Work Phone: Start: 08-31-2024 End: 08-31-2024 Patient encounter procedure Ivonne Mendoza NE -[facility] Work Phone: Start: 08-31-2024 End: 08-31-2024 ambulatory Sharif Christianson Facility:[facility] Start: 08-31-2024 End: 08-31-2024 ambulatory Shannan Waldrop Facility:[facility] Start: 08-26-2024 End: 08-26-[address] Sharif Christianson MD -Laboratory, [facility] Start: 08-26-2024 End: 08-26-2024 ambulatory Sharif Christianson Facility:[facility] Start: 08-23-2024 ambulatory Sharif Christianson Facilit y:[facility] Start: 08-09-2024 End: 08-09-2024 Patient encounter procedure Sabi Lynn SLOT MACHINE DEPARTMENT FLOORPERSON-C -[facility] Work Phone: Start: 08-09-2024 End: 08-09-2024 ambulatory Sharif Christianson Facility:[facility] Start: 07-27-2024 End: 07-27-2024 ambulatory Sharif Christianson Facility:[facility] Start: 07-27-2024 End: 07-27-2024 ambulatory Sabi Lynn NP Facility:[facility] Start: 07-20-2024 End: 07-20-2024 ambulatory Sharif Christianson Facility:[facility] Start: 07-12-2024 End: 07-12-2024 ambulatory Sharif Christianson Facility:[facility] Start: 07-05-2024 End: 07-05-2024 ambulatory Sharif Christianson Facility:[facility] Start: 01-07-[address] Sharif Christianson MD Work Phone: [facility] Start: 12-18-2023 End: 12-18-[address] Sharif Christianson Work Phone: [facility] Work Phone: Start: 12-18-2023 End: 12-18-[address] Sharif Christianson Work Phone: [facility] Work Phone: Start: 12-08-2023 End: 12-08-[address] Sharif Christianson Work Phone: [facility] Work Phone: Start: 12-02-[address] Sharif Christianson Work Phone: [facility] Start: 11-28-2023 End: 11-28-[address] Sharif Christianson Work Phone: [facility] Work Phone: Start: 11-28-2023 End: 11-28-[address] Sharif Christianson Work Phone: [facility] Work Phone: Start: 10-30-2023 End: 10-30-[address] Sharif Christianson Work Phone: [facility] Work Phone: Start: 10-06-2023 End: 10-06-[address] Sharif Christianson Work Phone: [facility] Work Phone: Start: 09-25-2023 End: 09-25-2023 ambulatory SLOT MACHINE DEPARTMENT FLOORPERSON-C Iris Clayton Work Phone: [facility] Work Phone: Start: 09-25-2023 End: 09-25-2023 Patient encounter procedure SLOT MACHINE DEPARTMENT FLOORPERSON-C Iris Clayton Work Phone: [facility] Start: 09-24-2023 End: 09-24-2023 ambulatory SLOT MACHINE DEPARTMENT FLOORPERSON-C Iris Clayton Work Phone: [facility] Work Phone: Start: 09-24-2023 End: 09-24-2023 Patient encounter procedure SLOT MACHINE DEPARTMENT FLOORPERSON-C Iris Clayton Work Phone: [facility] Start: 09-09-2023 Registered Recurring SLOT MACHINE DEPARTMENT FLOORPERSON-C Kendy Clayton [facility] Start: 09-09-2023 End: 09-09-2023 Patient encounter procedure SLOT MACHINE DEPARTMENT FLOORPERSON-C Iris Clayton Work Phone: [facility] Work Phone: Start: 09-08-2023 End: 09-08-2023 Patient encounter procedure SLOT MACHINE DEPARTMENT FLOORPERSON-C Iris Clayton Work Phone: [facility] Work Phone: Start: 09-03-2023 End: 09-03-2023 Patient encounter procedure SLOT MACHINE DEPARTMENT FLOORPERSON-C Iris Clayton Work Phone: [facility] Work Phone: Start: 09-01-2023 End: 09-01-2023 Patient encounter procedure SLOT MACHINE DEPARTMENT FLOORPERSON-C Iris Clayton Work Phone: [facility] Work Phone: Start: 08-27-2023 End: 08-27-2023 Patient encounter procedure SLOT MACHINE DEPARTMENT FLOORPERSON-C Iris Clayton Work Phone: [facility] Work Phone: Start: 08-25-2023 End: 08-25-2023 Patient encounter procedure SLOT MACHINE DEPARTMENT FLOORPERSON-C Iris Clayton Work Phone: [facility] Work Phone: Start: 08-20-2023 End: 08-20-2023 Patient encounter procedure SLOT MACHINE DEPARTMENT FLOORPERSON-C Iris Clayton Work Phone: [facility] Work Phone: Start: 08-19-2023 End: 08-19-2023 Patient encounter procedure SLOT MACHINE DEPARTMENT FLOORPERSON-C Iris Clayton Work Phone: [facility] Work Phone: Start: 08-13-2023 End: 08-13-2023 Patient encounter procedure SLOT MACHINE DEPARTMENT FLOORPERSON-C Iris Clayton Work Phone: [facility] Work Phone: Start: 08-12-2023 End: 08-12-2023 Patient encounter procedure SLOT MACHINE DEPARTMENT FLOORPERSON-C Iris Clayton Work Phone: [facility] Work Phone: Start: 08-06-2023 End: 08-06-2023 Patient encounter procedure SLOT MACHINE DEPARTMENT FLOORPERSON-C Iris Clayton Work Phone: [facility] Work Phone: Start: 08-04-2023 End: 08-04-2023 Patient encounter procedure SLOT MACHINE DEPARTMENT FLOORPERSON-C Iris Clayton Work Phone: [facility] Work Phone: Start: 07-30-2023 End: 07-30-2023 Patient encounter procedure SLOT MACHINE DEPARTMENT FLOORPERSON-Rupal Clayton Work Phone: [facility] Work Phone: Start: 07-29-2023 Registered Recurring SLOT MACHINE DEPARTMENT FLOORPERSON-Rupal Clayton Work Phone: [facility]-Radiation Oncology Start: 07-28-2023 End: 07-28-2023 Patient encounter procedure SLOT MACHINE DEPARTMENT FLOORPERSON-Rupal Clayton Work Phone: [facility] Work Phone: Start: 07-24-2023 End: 07-24-2023 ambulatory SLOT MACHINE DEPARTMENT FLOORPERSON-C Iris Clayton Work Phone: [facility] Work Phone: Start: 07-24-2023 End: 07-24-2023 Patient encounter procedure SLOT MACHINE DEPARTMENT FLOORPERSON-Rupal Clayton Work Phone: [facility] Work Phone: Start: 07-22-2023 Non-patient / Non-visit SLOT MACHINE DEPARTMENT FLOORPERSON-C Rupal Clayton Work Phone: [facility] Start: 07-22-2023 End: 07-22-2023 Admission to same day surgery center SLOT MACHINE DEPARTMENT FLOORPERSON-Rupal Clayton Work Phone: [facility]-Surgical Day Care Start: 07-22-2023 End: 07-22-2023 ambulatory SLOT MACHINE DEPARTMENT FLOORPERSON-Rupal Clayton Work Phone: [facility] Work Phone: Start: 07-22-2023 Non-patient / Non-visit SLOT MACHINE DEPARTMENT FLOORPERSON-C Rupal Clayton Work Phone: [facility] Start: 07-18-2023 End: 07-18-2023 Patient encounter procedure SLOT MACHINE DEPARTMENT FLOORPERSON-Rupal Clayton Work Phone: [facility] Work Phone: Start: 07-17-2023 End: 07-17-2023 Patient encounter procedure SLOT MACHINE DEPARTMENT FLOORPERSON-Rupal GalarzaIris Harvinderhoward Work Phone: [facility] Work Phone: Start: 07-16-2023 End: 07-16-2023 Admission to same day surgery center SLOT MACHINE DEPARTMENT FLOORPERSON-Rupla Clayton Work Phone: [facility] [employer] Driller/Special Procedures Work Phone: Start: 07-15-2023 Non-patient / Non-visit SLOT MACHINE DEPARTMENT FLOORPERSON-C Rupal Clayton Work Phone: [facility] Start: 07-15-2023 Registered Recurring SLOT MACHINE DEPARTMENT FLOORPERSON-Rupal Clayton Work Phone: [facility]-Radiation Oncology Start: 07-04-2023 End: 07-04-2023 Patient encounter procedure SLOT MACHINE DEPARTMENT FLOORPERSON-Rupal Clayton Work Phone: [facility] Work Phone: Start: 07-04-2023 End: 07-04-2023 Patient encounter procedure SLOT MACHINE DEPARTMENT FLOORPERSON-Rupal Clayton Work Phone: [facility] Work Phone: Start: 07-02-2023 End: 07-02-2023 Patient encounter procedure SLOT MACHINE DEPARTMENT FLOORPERSON-Rupal Clayton Work Phone: [facility] Work Phone: Start: 06-19-2023 End: 06-19-2023 ambulatory SUDISH PETER Facility:[facility] Start: 06-14-2023 Non-patient / Non-visit SLOT MACHINE DEPARTMENT FLOORPERSON-C Rupal Clayton Work Phone: [facility] Work Phone: Start: 06-13-2023 Non-patient / Non-visit SLOT MACHINE DEPARTMENT FLOORPERSON-C Rupal Clayton Work Phone: [facility] Start: 06-12-2023 Non-patient / Non-visit SLOT MACHINE DEPARTMENT FLOORPERSON-C Rupal davies Matilde Work Phone: [facility] Start: 06-12-2023 Non-patient / Non-visit SLOT MACHINE DEPARTMENT FLOORPERSON-C Rupal davies Matilde Work Phone: [facility] Work Phone: Start: 06-11-2023 End: 06-14-2023 Evaluation and management of inpatient [facility]-Intensive Care Unit Work Phone: Start: 05-27-2023 Registered Recurring [facility] Start: 05-22-2023 ambulatory SELF SELF Facility:[facility] Start: 05-01-2023 End: 05-01-2023 ambulatory SLOT MACHINE DEPARTMENT FLOORPERSON-C Iris Clayton Work Phone: [facility] Work Phone: Start: 05-01-2023 End: 05-01-2023 Patient encounter procedure SLOT MACHINE DEPARTMENT FLOORPERSON-C Iris Clayton Work Phone: [facility] Work Phone: Start: 04-01-2023 End: 04-01-2023 ambulatory SLOT MACHINE DEPARTMENT FLOORPERSON-C Iris Clayton Work Phone: [facility] Work Phone: Start: 04-01-2023 End: 04-01-2023 Patient encounter procedure SLOT MACHINE DEPARTMENT FLOORPERSON-C Iirs Clayton Work Phone: [facility] Work Phone: Start: 03-11-2023 End: 03-11-2023 ambulatory SLOT MACHINE DEPARTMENT FLOORPERSON-C Iris Clayton Work Phone: [facility] Work Phone: Start: 03-11-2023 End: 03-11-2023 Patient encounter procedure SLOT MACHINE DEPARTMENT FLOORPERSON-C Iris Clayton Work Phone: [facility]-Outpatient Breast Imaging Work Phone: Start: 01-29-2023 Registered Recurring SLOT MACHINE DEPARTMENT FLOORPERSON-C Kendy kohli Barkman Work Phone: [facility] Start: 01-29-2023 End: 01-29-2023 Patient encounter procedure SLOT MACHINE DEPARTMENT FLOORPERSONTim Clayton Work Phone: [facility] Work Phone: Start: 12-04-2022 End: 12-04-[address] Sharif Christianson Work Phone: [facility] Work Phone: Start: 12-04-2022 End: 12-04-[address] [facility] Christians[facility] Start: 11-06-2022 End: 11-06-[address] Sharif Christianson Work Phone: [facility] Start: 10-09-2022 Non-patient / Non-visit Dr. Yessenia Christianson Work Phone: [facility] Start: 10-09-2022 End: 10-09-[address] Sharif Christianson Work Phone: [facility] Work Phone: Start: 10-09-2022 End: 10-09-[address] Sharif Christians[facility] Start: 10-01-2022 End: 10-01-[address] Sharif Christianson Work Phone: [facility] Start: 08-13-2022 End: 08-13-[address] Sharif Christianson Work Phone: [facility] Work Phone: Start: 08-13-2022 End: 08-13-[address] Sharif Christianson Work Phone: [facility] Start: 07-30-[address] Sharif Christianson Work Phone: [facility] Start: 07-30-2022 End: 07-30-[address] Sharif Christianson Work Phone: [facility] Start: 07-29-2022 End: 07-29-[address] Sharif Christianson Work Phone: [facility] Work Phone: Start: 07-29-2022 End: 07-29-[address] Sharif Christianson Work Phone: [facility]-Laboratory, Specimen Start: 06-12-2022 End: 06-12-[address] Sharif Christianson Work Phone: [facility]-Occupational Therapy Start: 06-11-2022 End: 06-11-[address] Sharif Christianson Work Phone: [facility] Work Phone: Start: 06-11-2022 End: 06-11-[address] Sharif Christianson Work Phone: [facility]-Pulmonary Services/Neurology Start: 05-30-2022 End: 05-30-[address] Sharif Christianson Work Phone: [facility] Start: 05-23-2022 End: 05-23-2022 ambulatory SHARIF CHRISTIANSON Facility:[facility] Start: 05-23-2022 End: 05-23-2022 Patient encounter procedure Bryce Greer MD Work Phone: [facility] Comment on above: Acute subdural hemat lisa (Primary Dx); Intracranial hemorrhage (HCC) Start: 05-23-2022 End: 05-23-2022 Subsequent hospital visit by physician [facility]Spine RADIO CT SCAN [place] [facility] COORDINATOR Comment on above: Intracranial hemorrh age (HCC) [I62.9] Start: 05-07-2022 End: 05-07-2022 ambulatory SHARIF CHRISTIANSON Facility:[facility] Start: 05-07-2022 End: 05-07-2022 Patient encounter procedure Bryce Greer MD Work Phone: [facility] Comment on above: Intracranial hemorrh age (HCC) (Primary Dx) Start: 05-02-[address] Sharif Christianson Work Phone: [facility] Start: 04-29-2022 End: 04-29-[address] Sharif Christianson Work Phone: [facility] Start: 04-23-2022 End: 04-23-2022 Emergency department patient visit Dr. Sharif Christianson Work Phone: [facility]-Emergency Department Start: 04-18-2022 End: 04-18-2022 ambulatory SHARIF CHRISTIANSON Facility:[facility] Start: 04-18-2022 End: 04-18-2022 Subsequent hospital visit by physician [facility]Spine RADIO CT SCAN [place] [facility] COORDINATOR Comment on above: Subdural hemorrhage (HCC) [I62.00] Start: 04-18-2022 End: 04-18-2022 Patient encounter procedure Bryce Greer MD Work Phone: [facility] Comment on above: Intracranial hemorrh age (HCC) (Primary Dx) Start: 04-17-2022 Non-patient / Non-visit Dr. Yessenia Christianson Work Phone: [facility] Start: 04-15-2022 Non-patient / Non-visit Dr. Yessenia Christianson Work Phone: [facility] Start: 04-12-2022 Non-patient / Non-visit Dr. Yessenia Christianson Work Phone: [facility] Start: 04-10-2022 Telephone encounter Bryce Greer MD Work Phone: [facility] Comment on above: Post Op Start: 04-10-2022 Non-patient / Non-visit Dr. Yessenia Christianson Work Phone: [facility] Start: 04-09-2022 Non-patient / Non-visit Dr. Yessenia Christianson Work Phone: [facility] Start: 04-09-2022 Telephone encounter Donna LOPEZ Comment on above: Follow Up Phone Call (Post Discharge F/U - attempt made. No answer.) Start: 04-08-2022 Non-patient / Non-visit Dr. Yessenia Christianson Work Phone: [facility] Start: 04-05-2022 Non-patient / Non-visit Dr. Yessenia Christianson Work Phone: [facility] Start: 04-05-2022 End: 04-17-2022 Evaluation and management of inpatient Dr. Sharif Christianson Work Phone: [facility]-Rehab Unit Start: 03-28-2022 End: 04-05-2022 Evaluation and management of inpatient GISELA NIC MONOTYA Facility:[facility] [facility] Start: 03-28-2022 ambulatory Ana MALONEY RN.SILO ERECTOR Work Phone: Critical Care Start: 03-28-2022 End: 03-28-2022 Emergency department patient visit Dr. Sharif Christianson Work Phone: [facility]Emergency Department Start: 03-25-[address] Sharif Christianson Work Phone: [facility] Start: 03-12-2022 End: 03-12-2022 ambulatory SHARIF CHRISTIANSON Facility:[facility] Start: 03-12-2022 End: 03-12-2022 Patient encounter procedure Bryce Greer MD Work Phone: [facility] Comment on above: Intracranial hemorrh age (HCC) (Primary Dx) Start: 03-06-2022 End: 03-06-[address] Sharif Christianson Work Phone: [facility] Start: 03-04-[address] Sharif Christianson Work Phone: [facility] Start: 03-04-2022 End: 03-04-[address] Sharif Christianson Work Phone: [facility] Start: 02-14-2022 End: 02-14-2022 ambulatory SHARIF CHRISTIANSON Facility:[facility] Start: 02-14-2022 End: 02-14-2022 Patient encounter procedure Bryce Greer MD Work Phone: [facility] Comment on above: Intracranial hemorrh age (HCC) (Primary Dx); Acquired skull defect Start: 02-07-2022 Telephone encounter Donna LOPEZ Comment on above: Follow Up Phone Call (All Clear) Start: 02-01-2022 End: 02-04-2022 Evaluation and management of inpatient BRYCE GREER Facility:[facility] Start: 01-28-2022 End: 01-28-[address] Sharif Christianson Work Phone: [facility] Start: 01-22-2022 End: 01-23-2022 ambulatory KACY GLEZ Facility:[facility] Start: 01-22-2022 Encounter for other preprocedural examination LOAN RIVAS [facility] Start: 01-22-2022 End: 01-22-[address] 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 Comment on above: Skull defect (Primar y Dx) Start: 01-15-2022 End: 01-15-2022 Patient encounter procedure Bryce Greer MD Work Phone: [facility] Comment on above: Intracranial hemorrh age (HCC) (Primary Dx); Acquired skull defect Start: 01-15-2022 End: 01-15-2022 ambulatory BRYCE GREER Facility:[facility] Start: 01-15-2022 End: 01-15-2022 Subsequent hospital visit by physician [facility]Spine RADIO CT SCAN [place] GSA COORDINATOR Comment on above: Intracranial hemorrh age (HCC) [I62.9] Start: 01-09-2022 End: 01-09-[address] Sharif Christianson Work Phone: [facility] Work Phone: Start: 01-09-2022 End: 01-09-[address] [facility] Start: 01-09-[address] [facility] Christians[facility] Start: 01-07-2022 End: 01-07-[address] Sharif Christianson Work Phone: [facility] Start: 12-18-2021 End: 12-18-2021 ambulatory BRYCE GREER Facility:[facility] Start: 12-17-[address] Sharif Christianson Work Phone: [facility] Start: 12-13-[address] [facility] Christians[facility] Start: 12-06-2021 End: 12-06-[address] Sharif Christianson Work Phone: [facility] Start: 12-05-2021 End: 12-05-[address] Sharif Christianson Work Phone: [facility] Start: 11-20-2021 End: 11-20-2021 ambulatory LOAN RIVAS Facility:[facility] Start: 11-10-2021 Orders Only Loan lewis PA-C Work Phone: MA PROVID[employer] ADULT Comment on above: Intracranial hemorrh age (HCC) Start: 10-28-2021 End: 11-14-2021 Evaluation and management of inpatient REUBEN PLASENCIA Facility:[facility] Start: 10-27-2021 End: 10-27-2021 Emergency department patient visit Dr. Sharif Christianson Work Phone: [facility] Start: 10-01-2021 End: 10-01-[address] Sharif Christianson Work Phone: [facility] Start: 09-17-2021 End: 09-17-[address] Sharif Christianson Work Phone: [facility] Start: 09-05-2021 End: 09-05-[address] Sharif Christianson Work Phone: [facility] Procedures Date Procedure Procedure Detail Performing Clinician Start: 06-07-[address] Sharif Christianson MD Work Phone: Start: 06-07-2025 Serum inorganic phos phate measurement Dr. Sharif Christianson MD Work Phone: Start: 05-17-2025 Blood count smear rscp w/mnl difrntl wbc count Dr. Sharif Christianson MD Work Phone: Start: 05-17-[address] Sharif Christianson MD Work Phone: Start: 05-17-2025 Mean corpuscular [...] MD Work Phone: Start: 08-19-2023 Urine culture SLOT MACHINE DEPARTMENT FLOORPERSON-Rupal Clayton Work Phone: Start: 08-19-2023 Dr. Sharif farmer MD Work Phone: Start: 08-19-[address] Sharif Christianson MD Work Phone: Start: 08-19-[address] Sharif hCristianson MD Work Phone: Start: 07-24-2023 MRI of brain with contrast SLOT MACHINE DEPARTMENT FLOORPERSON-Rupal Clayton Work Phone: Start: 07-22-2023 Radiographic procedu re of chest SLOT MACHINE DEPARTMENT FLOORPERSON-Rupal Clayton Work Phone: Start: 07-22-2023 Implantation to cardiovascular system SLOT MACHINE DEPARTMENT FLOORPERSON-Rupal Clayton Work Phone: Start: 07-22-2023 Fluoroscopic guidance N PTim Clayton Work Phone: Start: 06-11-2023 CT angiography of ch est with contrast Start: 06-11-2023 CT of head without contrast Start: 06-11-2023 Plain chest X-ray Start: 06-11-2023 SARS-CoV-2 & FLU Ant igen (Rapid) Start: 06-11-2023 Viral antigen assay SLOT MACHINE DEPARTMENT FLOORPERSON- Rupal Clayton Work Phone: Start: 05-27-2023 Positron emission tomography with computed tomography Start: 05-01-2023 Plain chest X-ray BAYLEE-Rupal Clayton Work Phone: Start: 05-01-2023 Plain chest X-ray LANEY Clayton Work Phone: Start: 05-01-2023 Biopsy/Inj or Needle Placement SLOT MACHINE DEPARTMENT FLOORPERSONTim Clayton Work Phone: Start: 04-01-2023 CT of chest without contrast SLOT MACHINE DEPARTMENT FLOORPERSON-C Iris Matilde Work Phone: Start: 03-11-2023 Screening mammography N P-C Iris Harvinderhoward Work Phone: Start: 04-23-2022 CT of head without contrast Dr. Sharif Christianson Work Phone: Start: 04-12-2022 Diagnostic radiograp hy of abdomen Dr. Sharif Christianson Work Phone: Start: 03-28-2022 Antibody screen LOAN RIVAS Comment on above: Order Comment: Speci men Type: BLOOD SPECIMENOrdering Facility: [facility] Address: [address] [place] [address] Performed By: #### T SCR ####[facility] BLOOD BANKIA [id number] [address] Start: 03-28-2022 CT angiography of head [...] head/brain w/o co ntrast material Kacy Glez SALES APPLICATIONS ENGINEER.SILO ERECTOR Work Phone: Start: 10-28-2021 Antibody screen LOAN RIVAS Comment on above: Order Comment: Speci men Type: BLOOD SPECIMENOrdering Facility: [facility] Address: [address] [place] [address] Performed By: #### T SCR ####[facility] BLOOD BANKIA [id number] [address] Start: 10-27-2021 CT cervical spine wi [...] [AGGREGATE] Kevin Womack Start: 05-30-2016 End: 05-30-2016 PLATE MILL HAND Leticia Euceda TREASURY MANAGEMENT SALES CONSULTANT-C Start: 05-30-2016 End: 05-30-2016 Follow Up Appt 6 months Leticia Euceda TREASURY MANAGEMENT SALES CONSULTANT -C Start: 10-18-2015 End: 12-30-2016 *Hepatic Function [...] stent placement Ivonne WALKER Comment on above: CXD-SSV-Hvbbml LCx w / 3.0 x 12 mm Promus Premier Stent 10/10/15 Bacteria identified in Urine by Culture Dr. Sharif Christianson Work Phone: Urine culture Dr. Sharif moreno Work Phone: Urine culture Dr. Sharif moreno Work Phone: Viral antigen assay Dr. Sharif Christianson Work Phone: Plan of Treatment Date Care Activity Detail Author Start: 06-22-2025 Radiologic exam chest 2 views Chest PA and Lateral [facility] Start: 06-22-2025 Patient encounter procedure Registered Clinical -[facility] [place] Work Phone: Start: 06-10-2025 Non-patient / Non-visit Non-patient / [facility] Start: 06-10-2025 End: 06-10-2025 Patient encounter procedure -[facility] Work Phone: Start: 06-07-2025 Registered Recurring Registered Recurring -[facility] Start: 06-07-2025 End: 06-07-2025 Patient encounter procedure Cancer of upper lobe of left lung -[facility] Work Phone: Start: 05-17-2025 Serum inorganic phosphate measurement [facility] Start: 05-17-2025 Thyroid stimulating hormone measurement [facility] Start: 04-05-2025 Serum inorganic phosphate measurement [facility] Start: 04-05-2025 Thyroid stimulating hormone measurement [facility] Start: 04-05-[address] [facility] Start: 04-05-2025 Venous catheter care management [facility] Start: 04-05-2025 CT of abdominal aorta with contrast [facility] Start: 03-28-2025 Following clinical pathway protocol [facility] Start: 03-15-[address] [facility] Start: 03-15-2025 Serum inorganic phosphate measurement [facility] Start: 03-15-2025 Thyroid stimulating hormone measurement [facility] Start: 02-22-[address] [facility] Start: 01-25-[address] [facility] Start: 01-04-[address] [facility] Start: 11-30-2024 Venous catheter care management [facility] Start: 11-22-2024 DIABETES SCREEN DIABETES SCREEN [facility] Start: 11-10-2024 DIABETES SCREEN DIABETES SCREEN [facility] Start: 08-31-2024 Venous catheter care management [facility] Start: 12-18-2023 Venous catheter care management [facility] Start: 12-02-2023 PET study for localization of tumor PET/CT Tumor Base -Thigh Subs [facility] Start: 12-02-2023 PT Unspecified body region [facility] Start: 10-30-2023 Vital signs measurements [facility] Start: 10-09-2023 Vital signs measurements [facility] Start: 07-28-2023 Venous catheter care management [facility] Start: 07-24-2023 Venous catheter care management [facility] Start: 07-22-2023 Anesthesia access central venous circulation ANESTH VASCULAR ACCESS [facility] Start: 07-22-2023 Insj tunneled ctr vad w/subq port age 5 yr/> INSERT TUNNELED CV CATH [facility] Start: 07-22-2023 Patient discharge [facility] Start: 07-17-2023 Patient referral [facility] Work Phone: Start: 07-16-2023 Patient discharge [facility] Start: 07-04-2023 Evaluation of diagnostic study results [facility] Start: 06-19-20[address] Blood [address] [facility] Start: 06-18-[address] [facility] Start: 06-17-[address] [facility] Start: 06-16-20[address] Blood [address] [facility] Start: 06-15-2023 Blood chemistry [facility] Start: 06-14-2023 Patient discharge [facility] Start: 06-14-[address] [facility] Start: 06-13-2023 Patient referral [facility] Work Phone: Start: 06-13-2023 Referral to occupational therapist [facility] Start: 06-13-2023 Referral to service [facility] Start: 06-11-2023 Following clinical pathway protocol [facility] Start: 06-11-2023 Assessment of risk of venous thromboembolism [facility] Start: 06-11-2023 Care regimes management [facility] Start: 06-11-2023 Catheterization of vein [facility] Start: 06-11-2023 Insertion of catheter into peripheral vein [facility] Start: 06-11-2023 Measuring intake and output [facility] Start: 06-11-2023 Notification of physician [facility] Start: 06-11-2023 Oxygen therapy [facility] Start: 06-11-2023 Providing care according to standard [facility] Start: 06-11-2023 Provision of activity privileges [facility] Start: 06-11-2023 Referral to senior occupational therapist [facility] Start: 06-11-2023 Tobacco use cessation education [facility] Start: 06-11-2023 Electrocardiographic procedure [facility] Start: 06-11-2023 Verification routine [facility] Start: 06-11-2023 Admission procedure [facility] Start: 06-11-2023 Hospital admission, emergency, from emergency room, medical nature [facility] Start: 06-11-2023 Troponin I measurement [facility] Start: 06-11-2023 End: 06-11-[address] [facility] Start: 05-23-2023 BP CONTROLLED (<130/80) BP CONTROLLED (<130/80) [facility] Start: 05-07-2023 BP CONTROLLED (<130/80) BP CONTROLLED (<130/80) [facility] Start: 05-01-2023 CORE NDL BX LNG/MED PERQ CORE NDL BX LNG/MED PERQ [facility] Start: 05-01-2023 Following clinical pathway protocol [facility] Start: 05-01-2023 Catheterization of vein [facility] Start: 05-01-2023 Oxygen therapy [facility] Start: 05-01-2023 Patient discharge [facility] Start: 05-01-2023 Vital signs measurements [facility] Start: 04-18-2023 BP CONTROLLED (<130/80) BP CONTROLLED (<130/80) [facility] Start: 03-12-2023 BP CONTROLLED (<130/80) BP CONTROLLED (<130/80) [facility] Start: 02-14-2023 BP CONTROLLED (<130/80) BP CONTROLLED (<130/80) [facility] Start: 01-22-2023 BP CONTROLLED (<130/80) BP CONTROLLED (<130/80) [facility] Start: 10-28-2022 Influenza vaccination LUNG CANCER SCREENING [facility] Start: 05-18-2022 Hemoglobin A1c/Hemoglobin.total in Blood HBA1C [facility] Start: 04-18-2022 Influenza vaccination [facility] Start: 04-17-2022 Patient discharge [facility] Work Phone: Start: 04-10-2022 Following clinical pathway protocol [facility] Work Phone: Start: 04-09-2022 End: 04-09-[address] [facility] Work Phone: Start: 04-09-2022 Introduction of urinary catheter [facility] Work Phone: Start: 04-09-2022 Following clinical pathway protocol [facility] Work Phone: Start: 04-09-2022 Catheterization of vein [facility] Work Phone: Start: 04-05-[address] [facility] Work Phone: Start: 04-05-2022 Application of intermittent pneumatic compression device [facility] Work Phone: Start: 04-05-2022 Urinary bladder training [facility] Work Phone: Start: 04-05-2022 Referral to service [facility] Work Phone: Start: 04-05-2022 Admission procedure [facility] Work Phone: Start: 04-05-2022 Patient referral to dietitian [facility] Work Phone: Start: 04-05-2022 Referral to occupational therapist [facility] Work Phone: Start: 04-05-2022 Verification routine [facility] Work Phone: Start: 04-05-2022 Vital signs measurements [facility] Work Phone: Start: 04-05-2022 End: 04-05-[address] [facility] Work Phone: Start: 04-05-2022 Incentive spirometry [facility] Work Phone: Start: 04-05-2022 Speech therapy assessment [facility] Work Phone: Start: 03-28-2022 Aspiration precautions [facility] Work Phone: Start: 02-01-2022 End: 01-15-2023 Choriogonadotropin ( test) [Presence] in Urine HCG QUAL UR Lab Routine Intracranial hemorrhage (HCC) Acquired skull defect Expected: 02/01/2022, Expires: 01/15/2023 [facility] Work Phone: Comment on above: Expected: 02/01/2022, Expires: 3 Start: 01-30-2022 End: 01-15-2023 SARS-CoV-2 (COVID-19) RNA [Presence] in Respiratory specimen by NADEEM with probe detection PRE-PROCEDURE & PRE-OPERATIVE COVID Microbiology Routine Intracranial hemorrhage (HCC) Acquired skull defect Expected: 01/30/2022, Expires: 01/15/2023 [facility] Work Phone: Comment on above: Expected: 01/30/2022, Expires: 3 Start: 01-25-2022 End: 01-15-2023 aPTT in Platelet poor plasma by Coagulation assay ACTIVATED PTT Lab Routine Intracranial hemorrhage (HCC) Acquired skull defect Expected: 01/25/2022, Expires: 01/15/2023 [facility] Work Phone: Comment on above: Expected: 01/25/2022, Expires: 3 Start: 01-25-2022 End: 01-15-2023 Basic metabolic 2000 panel - Serum or Plasma BASIC METABOLIC PNL Lab Routine Intracranial hemorrhage (HCC) Acquired skull defect Expected: 01/25/2022, Expires: 01/15/2023 [facility] Work Phone: Comment on above: Expected: 01/25/2022, Expires: 3 Start: 01-25-2022 End: 01-15-2023 CBC panel - Blood by Automated count CBC Lab Routine Intracranial hemorrhage (HCC) Acquired skull defect Expected: 01/25/2022, Expires: 01/15/2023 [facility] Work Phone: Comment on above: Expected: 01/25/2022, Expires: 3 Start: 01-25-2022 End: 01-15-2023 PT panel - Platelet poor plasma by Coagulation assay PROTHROMBIN TIME/PT Lab Routine Intracranial hemorrhage (HCC) Acquired skull defect Expected: 01/25/2022, Expires: 01/15/2023 [facility] Work Phone: Comment on above: Expected: 01/25/2022, Expires: 3 Start: 10-15-2021 COVID-19 VACCINE (5 - Booster for Moderna series) COVID-19 VACCINE (5 - Booster for Moderna series) [facility] Start: 08-18-2021 ADVANCE DIRECTIVE DISCUSSION ADVANCE DIRECTIVE DISCUSSION [facility] Start: 08-18-2021 DEPRESSION ASSESSMENT DEPRESSION ASSESSMENT [facility] Start: 04-18-2021 Influenza vaccination INFLUENZA (#1) [facility] Start: 10-10-2020 LIPID SCREEN LIPID SCREEN [facility] Start: 01-01-2020 BONE DENSITY BONE DENSITY [facility] Start: 01-01-2020 PNEUMOVAX AGE 65 AND OVER WITH 5YR LOOKBACK (#1) PNEUMOVAX AGE 65 AND OVER WITH 5YR LOOKBACK (#1) [facility] Start: 07-14-2019 Colonoscopy COLONOSCOPY [facility] Start: 07-14-2019 COLORECTAL CANCER SCREENING COLORECTAL CANCER SCREENING [facility] Start: 12-30-2017 Hepatitis B surface antibody level LDL CHOLESTEROL [facility] Start: 07-02-2017 End: 01-04-2017 *Hepatic Function Panel *Hepatic Function Panel [facility] Work Phone: Start: 07-02-2017 End: 01-04-2017 Lipid panel [AGGREGATE] *Lipid Profile CC PCP [facility] Work Phone: Start: 06-06-2017 End: 06-06-2017 Appointment Appointment [facility] Work Phone: Start: 06-06-2017 End: 06-06-2017 Appointment Appointment [facility] Work Phone: Start: 12-05-2016 End: 12-30-2016 *Hepatic Function Panel *Hepatic Function Panel [facility] Work Phone: Start: 12-05-2016 End: 12-05-2016 Follow Up Appt 6 months Follow Up Appt 6 months [facility] Work Phone: Start: 12-05-2016 End: 12-30-2016 Lipid panel [AGGREGATE] *Lipid Profile CC PCP [facility] Work Phone: Start: 12-05-2016 End: 12-05-2016 MMM MMM [facility] Work Phone: Start: 10-10-2016 Hepatitis B surface antibody level LDL CHOLESTEROL [facility] Start: 05-30-2016 End: 05-30-2016 PLATE MILL HAND PLATE MILL HAND [facility] Work Phone: Start: 05-30-2016 End: 05-30-2016 Follow Up Appt 6 months Follow Up Appt 6 months [facility] Work Phone: Start: 10-18-2015 End: 12-30-2016 *Hepatic Function Panel *Hepatic Function Panel [facility] Work Phone: Start: 10-18-2015 End: 05-20-2016 Follow Up Appt 6 months Follow Up Appt 6 months [facility] Work Phone: Start: 10-18-2015 End: 12-30-2016 Lipid panel [AGGREGATE] *Lipid Profile CC PCP [facility] Work Phone: Start: 10-18-2015 End: 05-20-2016 MMM MMM [facility] Work Phone: Start: 2004 SHINGRIX VACCINE (1 of 2) SHINGRIX VACCINE (1 of 2) [facility] Start: 01-01-2000 COLOGUARD (FIT-DNA) COLOGUARD (FIT-DNA) [facility] Start: 01-01-2000 Colonoscopy COLONOSCOPY [facility] Start: 01-01-2000 COLORECTAL CANCER SCREENING COLORECTAL CANCER SCREENING [facility] Start: 01-01-[address] COLONOGRAPHY [facility] Start: 01-01-2000 FECAL OCCULT BLOOD FECAL OCCULT BLOOD [facility] Start: 01-01-2000 SIGMOIDOSCOPY SIGMOIDOSCOPY [facility] Start: 1994 Mammography MAMMOGRAM [facility] Start: 1973 Urine microalbumin profile DTAP,TDAP,TD (1 - Tdap) [facility] Start: 1972 ANNUAL PCP TEAM CHRONIC DISEASE VISIT ANNUAL PCP TEAM CHRONIC DISEASE VISIT [facility] Start: 1972 HEPATITIS C SCREENING HEPATITIS C SCREENING [facility] Start: 1966 Adult depression screening assessment DEPRESSION SCREENING [facility] Start: 1964 3 comp foot exam completed DIABETIC FOOT EXAM [place] [facility] Start: 1964 Hepatitis B screening URINE ALBUMIN:CREATININE RATIO [facility] Start: 1964 Hepatitis C antibody, confirmatory test DILATED RETINAL EXAM [facility] Start: 1960 PNEUMOCOCCAL: 65+ (1 - PCV) PNEUMOCOCCAL: 65+ (1 - PCV) [facility] Alanine aminotransfe rase [Enzymatic activity/volume] in Serum or Plasma [facility] Alanine aminotransfe rase [Enzymatic activity/volume] in Serum or Plasma [facility] Alanine aminotransfe rase [Enzymatic activity/volume] in Serum or Plasma [facility] Albumin [Mass/volume ] in Serum or Plasma [facility] Albumin [Mass/volume ] in Serum or Plasma [facility] Albumin [Mass/volume ] in Serum or Plasma [facility] Alkaline phosphatase [Enzymatic activity/volume] in Serum or Plasma [facility] Alkaline phosphatase [Enzymatic activity/volume] in Serum or Plasma [facility] Alkaline phosphatase [Enzymatic activity/volume] in Serum or Plasma [facility] Anion gap in Serum or Plasma [facility] Anion gap in Serum or Plasma [facility] Anion gap in Serum or Plasma [facility] Bilirubin, total measurement [facility] Bilirubin, total measurement [facility] Bilirubin, total measurement [facility] BUN/Creatinine ratio [facility] BUN/Creatinine ratio [facility] BUN/Creatinine ratio [facility] Calcium [Mass/volume ] in Serum or Plasma [facility] Calcium [Mass/volume ] in Serum or Plasma [facility] Calcium [Mass/volume ] in Serum or Plasma [facility] Carbon dioxide, tota l [Moles/volume] in Central venous blood [facility] Carbon dioxide, tota l [Moles/volume] in Central venous blood [facility] Carbon dioxide, tota l [Moles/volume] in Central venous blood [facility] Catheterization of left heart [facility] CBC W Auto Different ial panel - Blood [facility] Work Phone: CBC W Auto Different ial panel - Blood [facility] CBC W Auto Different ial panel - Blood [facility] CBC W Auto Different ial panel - Blood [facility] Cortisol [Mass/volum e] in Serum or Plasma [facility] Creatinine [Mass/vol ume] in Serum or Plasma [facility] Creatinine [Mass/vol ume] in Serum or Plasma [facility] Creatinine [Mass/vol ume] in Serum or Plasma [facility] CT Abdomen and Pelvi s W contrast IV [facility] End: 04-18-2022 CT BRAIN WO IVCON [facility] Work Phone: Comment on above: 1 Occurrences starting 04/18/2022 until 04/18/2022 End: 06-06-2023 CT BRAIN WO IVCON CT BRAIN WO IVCON Radiology Routine Intracranial hemorrhage (HCC) 1 Occurrences starting 05/07/2022 until 06/06/2023 [facility] Work Phone: Comment on above: 1 Occurrences starting 05/07/2022 until 06/06/2023 End: 05-23-2022 CT BRAIN WO IVCON [facility] Work Phone: Comment on above: 1 Occurrences starting 05/23/2022 until 05/23/2022 CT Chest and Abdomen W contrast IV [facility] End: 12-10-2022 Ct head/brain w/o contrast material CT BRAIN WO IVCON Radiology Routine Intracranial hemorrhage (HCC) 1 Occurrences starting 11/10/2021 until 12/10/2022 [facility] Work Phone: Comment on above: 1 Occurrences starting 11/10/2021 until 12/10/2022 CT of abdominal aort a with contrast [facility] End: 01-15-2023 ECG COMPLETE ECG COMPLETE ECG Routine Intracranial hemorrhage (HCC) Acquired skull defect 1 Occurrences starting 01/15/2022 until 01/15/2023 [facility] [employer] Work Phone: Comment on above: 1 Occurrences starting 01/15/2022 until 01/15/2023 Erythrocyte mean cor puscular volume determination [facility] Erythrocyte mean cor puscular volume determination [facility] Erythrocyte mean cor puscular volume determination [facility] Ferritin [Mass/volum e] in Serum or Plasma [facility] Work Phone: Ferritin [Mass/volum e] in Serum or Plasma [facility] Ferritin [Mass/volum e] in Serum or Plasma [facility] Glucose [Mass/volume ] in Serum or Plasma [facility] Glucose [Mass/volume ] in Serum or Plasma [facility] Glucose [Mass/volume ] in Serum or Plasma [facility] H&P for surgery H&P FOR SURGERY Procedures Routine Intracranial hemorrhage (HCC) Acquired skull defect Or[facility]: [facility] [employer] Work Phone: Comment on above: Ordered: 01/15/2022 Hematocrit [Volume F raction] of Blood [facility] Hematocrit [Volume F raction] of Blood [facility] Hematocrit [Volume F raction] of Blood [facility] Hemoglobin [Mass/vol ume] in Blood [facility] Hemoglobin [Mass/vol ume] in Blood [facility] Hemoglobin [Mass/vol ume] in Blood [facility] Iron and Iron bindin g capacity panel - Serum or Plasma [facility] Work Phone: Iron and Iron bindin g capacity panel - Serum or Plasma [facility] Iron and Iron bindin g capacity panel - Serum or Plasma [facility] Leukocytes [#/volume ] in Blood [facility] Leukocytes [#/volume ] in Blood [facility] Leukocytes [#/volume ] in Blood [facility] Magnesium [Mass/volu me] in Serum or Plasma [facility] Magnesium measurement [facility] Magnesium measurement [facility] Mean corpuscular hem oglobin concentration determination [facility] Mean corpuscular hem oglobin concentration determination [facility] Mean corpuscular hem oglobin concentration determination [facility] Mean corpuscular hem oglobin determination [facility] Mean corpuscular hem oglobin determination [facility] Mean corpuscular hem oglobin determination [facility] Measurement of renal function [facility] Measurement of renal function [facility] Measurement of renal function [facility] MR Brain WO and W contrast IV [facility] Neutrophil count [facility] Neutrophil count [facility] Neutrophil count [facility] Neutrophil percent differential count [facility] Neutrophil percent differential count [facility] Neutrophil percent differential count [facility] NM Whole body Bone [facility] Patient Education [facility] [employer] Work Phone: Patient referral [facility] Work Phone: Platelets [#/volume] in Blood [facility] Platelets [#/volume] in Blood [facility] Platelets [#/volume] in Blood [facility] Potassium measurement [facility] Potassium measurement [facility] Potassium measurement [facility] PT Unspecified body region W [facility] Red blood cell count [facility] Red blood cell count [facility] Red blood cell count [facility] Red cell distributio n width determination [facility] Red cell distributio n width determination [facility] Red cell distributio n width determination [facility] Serum chloride measurement [facility] Serum chloride measurement [facility] Serum chloride measurement [facility] Serum inorganic phos phate measurement [facility] Sodium measurement [facility] Sodium measurement [facility] Sodium measurement [facility] T4 free measurement [facility] T4 free measurement [facility] Total protein measurement [facility] Total protein measurement [facility] Total protein measurement [facility] Urea nitrogen [Mass/ volume] in Serum or Plasma [facility] Urea nitrogen [Mass/ volume] in Serum or Plasma [facility] Urea nitrogen [Mass/ volume] in Serum or Plasma [facility] Urinalysis complete panel - Urine [facility] XR Lumbar spine 2 or 3 Views [facility] Immunizations Immunization Date Immunization Notes Care Provider Caprice garcia 08-20-2021 Covid (Moderna) Dr. Sharfi Mcnamara inner Work Phone: [facility] 12-28-2020 Covid (Moderna) Dr. Sharif Mcnamara inner Work Phone: [facility] 11-30-2020 Covid (Moderna) Dr. Sharif Mcnamara inner Work Phone: [facility] Payers Date Payer Category Payer Medicaid [id number] 2023 Self-pay [id number] 2020 Medicare [employer] [place] [id number] 2020-Present [phone] [address] [place] [address] O [id number] 2020 Medicare [id number] 2020 Medicare [id number] [id number] 1955 Unknown [id number] 2.0.1.066966.3.579.2.594 Unknown [id number] Unknown [id number] Unknown [id number]. 1.13.159.2.7.3.6 79035.315 Unknown [id number] Unknown [id number] 2.16.840.1.812652.3.579.2.462 Unknown [id number] 2.16.840.1.253302.3.579.2.462 Unknown [id number] 2.16.840.1.583172.3.579.2.462 Unknown [id number] 2.16.840.1.417538.3.579.2.462 Unknown [id number] 2.16.840.1.030640.3.579.2.462 Unknown [id number] 2.16.840.1.529669.3.579.2.462 Unknown [id number] 2.840.1.680556.3.579.2.462 Unknown [id number] 2.840.1.385130.3.579.2.462 Unknown [id number] 2.840.1.071055.3.579.2.462 Unknown [id number] 2.840.1.502728.3.579.2.462 Unknown [id number] 2.16.840.1.146310.3.579.2.462 Unknown [id number] 2.16840.1.155760.3.579.2.462 Unknown [id number] 2.16.840.1.593865.3.579.2.462 Unknown [id number] 2.840.1.860157.3.579.2.462 Unknown [id number] 2.16840.1.106321.3.579.2.462 Unknown [id number] 2.16.840.1.064549.3.579.2.462 Unknown [id number] 2.16.840.1.426257.3.579.2.462 Unknown [id number] 2.16.840.1.098544.3.579.2.462 Unknown [id number] 2.16840.1.953819.3.579.2.462 Unknown [id number] 2.16.840.1.537750.3.579.2.462 Unknown [id number] 2.840.1.278510.3.579.2.462 Unknown [id number] 2.16840.1.556084.3.579.2.462 Unknown [id number] 2.840.1.732256.3.579.2.462 Unknown [id number] 2.840.1.475424.3.579.2.462 Unknown [id number] 2.840.1.889982.3.579.2.462 Unknown [id number] 2.840.1.126130.3.579.2.462 Unknown [id number] 2.840.1.169221.3.579.2.462 Unknown [id number] 2.840.1.663837.3.579.2.462 Unknown [id number] 2.840.1.630192.3.579.2.462 Unknown [id number] 2.840.1.759327.3.579.2.462 Unknown [id number] 2.840.1.611166.3.579.2.462 Unknown [id number] 2.840.1.009923.3.579.2.462 Unknown [id number] 2.840.1.579749.3.579.2.462 Unknown [id number] 2.840.1.703256.3.579.2.462 Unknown [id number] 2.840.1.556867.3.579.2.462 Unknown [id number] 2.840.1.897002.3.579.2.462 Unknown [id number] 2.840.1.801279.3.579.2.462 Unknown [id number] 2.840.1.474752.3.579.2.462 Unknown [id number] 2.16.840.1.443323.3.579.2.462 Unknown [id number] 2.16.840.1.093574.3.579.2.462 Unknown [id number] 2.16.840.1.884486.3.579.2.462 Social History Date Type Detail Facility Start: 01-22-2022 End: 04-18-2022 Tobacco smoking status NHIS Smokes tobacco daily [facility] Work Phone: History of tobacco use Cigarette Smoker [facility] Work Phone: Start: 01-23-2021 End: 05-23-2022 Alcohol intake Current drinker of alcohol (finding) [facility] Start: 10-08-2019 End: 04-01-2022 History SDOH Alcohol Frequency 2 [facility] Start: 10-08-2019 Tobacco Comment using patch tr lauren to quit 6 cigs daily [facility] Start: 1955 Sex Assigned At Not on file [facility] Start: 10-18-2021 End: 05-23-2022 Exposure to SARS-CoV-2 (event) Not sure [facility] Start: 12-13-2021 End: 10-06-2023 Tobacco smoking status TNIS Unknown if ever smoked [facility] Start: 09-27-2020 Cigarettes [facility] Start: 1955 Sex Assigned At Female W [facility] Start: 01-22-2022 End: 04-18-2022 Cigarettes smoked current (pack per day) - Reported 1 [facility] Start: 01-22-2022 End: 04-18-2022 Tobacco use and exposure Smokeless tobacco non-user [facility] Work Phone: Start: 04-01-2022 History SDOH Financial 5 [facility] Start: 04-01-2022 History SDOH Food Worry 1 [facility] Start: 04-18-2022 Tobacco Comment Currently usin g nicotine patches [facility] Start: 05-26-2024 End: 05-26-2024 Tobacco smoking status NHIS Ex-smoker (finding) [facility] Start: 12-03-2024 Sex Female (finding) [facility] Sex [facility] NEGATED: Highlighted row [facility] Medical Equipment Procedure Code Equipment Code Equipment Origin al Text Equipment Identifier Dates Insertion, vascular access port [id number] Start: 07-22-[address] us Bovine Collagen Matrix 3x3in Soft Tissue Patch - [id number] Start: 10-28-[address] us Bovine Collagen Matrix 3x3in Soft Tissue Patch - [id number] Start: 10-28-[address] us Bovine Collagen Matrix 2x2in Soft Tissue Patch - [id number] Start: 10-28-2021 Agent Avitene Co llagen Hemostatic Microfibrillar Flour Sterile Latex Free 1 - [id number] Start: 10-28-2021 Lwk-Pu-I-Kind Im plant - [id number] Start: 02-01-2022 Cover Brandon Hole Craniofacial .6mm 10mm Dome Latex Free Nonsterile - [id number] Start: 02-01-2022 Cover Brandon Hole Craniofacial 14mmx.6mm Dome Nonsterile - [id number] Start: 02-01-2022 Screw Bone Unive rsal Neuro 3 4mm 1.5mm Self Drill Axial Stability Latex - [id number] Start: 02-01-2022 Cover Brandon Hole Craniofacial 14mmx.6mm Dome Nonsterile - [id number] Start: 03-28-2022 Comment on above: Description: Wavemar k interface issue. Screw Bone Unive rsal Neuro 3 4mm 1.5mm Self Drill Axial Stability Latex - [id number] Start: 03-28-2022 Comment on above: Description: WaveMar k interface issue. Goals Date Patient Goal Desired Activity /State Functional Status Date Assessment Result Facility 06-14-2023 Functional status Ambulates;Up ad kelly [facility] Work Phone: 04-17-2022 Functional status Activity Abili ty Standby Assist [facility] Work Phone: 04-16-2022 Functional status Ambulates [facility] Work Phone: Mental Status Date Assessment Result Facility 05-19-2024 Cognitive function Voice/Name [facility] Work Phone: 10-20-2023 Cognitive function Awake;Alert;Appropriat e [facility] Work Phone: 10-08-2023 Cognitive function Arousable To Voice/Nam e [facility] Work Phone: 07-22-2023 Cognitive function Voice/Name [facility] Work Phone: 06-14-2023 Cognitive function Voice/Name [facility] Work Phone: 06-11-2023 Cognitive function Level Of Cons ciousness Awake;Alert;Appropriate;Follow s Commands [facility] Work Phone: 05-01-2023 Cognitive function Awake;Alert;Appropriat e [facility] Work Phone: 05-02-2022 Cognitive function Awake;Alert;A ppropriate;Follow s Commands [facility] Work Phone: 04-23-2022 Cognitive function Level Of Cons ciousness Awake;Alert;Appropriate;Follow s Commands [facility] Work Phone: 04-17-2022 Cognitive function Appropriate;Cooperativ e [facility] Work Phone: 04-16-2022 Cognitive function Voice/Name [facility] Work Phone: 03-28-2022 Cognitive function Level Of Cons ciousness Awake;Alert;Appropriate;Follow s Commands [facility] Work Phone: 03-25-2022 Cognitive function Voice/Name [facility] Work Phone: 12-17-2021 Cognitive function Awake;Alert;A ppropriate;Follow s Commands [facility] Work Phone: 10-22-2021 Cognitive function Arousable To Voice/Nam e [facility] Work Phone: Clinical Notes 10-21-2016 to 06-07-2025 Note Date & Type Note Facility 06-07-2025 Progress note [facility] 06-01-2025 Progress note [facility] 06-01-2025 Progress note Note Date/Time June 01, 2025 3:16pm [facility] [address] [place] [address] OFFICE VISIT Date of Service: 06/01/25 MR#: [id number] Acct: [id number] Name: KAELYN POWERS Rep #: [id number] : 1955 Provider: Dr. 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 mary beth/jew: Sikh seatbelt use: always do you feel safe [...] nourished Orientation: alert, awake and oriented x3 [facility] Head: normocephalic and atraumatic Ears: hearing grossly [...] Cosigner Signature: Date (if applicable) CC: ~ [facility] Work Phone: 1(331) 579-633608-20-2025 Radiology Diagnostic study note [facility] Imaging Services [address] [place] [id number] CTA Abd w/Runoff W/WO Contrast MR#: [id number] Acct: [id number] Name: KAELYN POWERS Rep #: [id number] : 1955 F 69 From: Raciel Nunez MD PCP: Dr. Sharif Christianson MD Status: RE G CLI Study:CTA Abd w/Runoff W/WO Contrast Date of Exam: 04/05/25 Exam# [id number] Ordering Dr: Suleiman Gilliland PROCEDURE: CTA ABD [...] runoff in both lower extremities. Reading Location: [id number] CC: DENISE Miranda; Dr. Sharif Christianson MD ~ Building Guard Deputy Sheriff: Signed [facility]08-19-2025 Progress [facility] [address] [place] [address] OFFICE VISIT Date of Service: 04/05/25 1229 MR#: [id number] Acct: [id number] Name: KAELYN POWERS Rep #: [id number] : 1955 From: Shannan romero MD Age/Sex: 69/F [place] [facility]: Signed HPI Subjective Date [...] ANTIBODY / CLONE RESULT ER (6F11) negative SD (1E2) negative AE1-3 (AE1/AE3/PCK26) positive CK7 (OV-TL12/30) positive CK8 (66soigC24) positive CK20 (KS20.8) negative TTF-1 (8G7G3/1) positive [...] disease. May 2023: Patient was seen at [facility] by thoracic surgery Dr. Peter and [...] therapy with pembrolizumab September 21, 2024. 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 mary beth/jew: Sikh seatbelt use: always do you feel safe [...] no focal motor deficits Coordination / Balance: qxvurf-av-onan test normal Speech: speech normal Gait (Neuro): [...] itchy rash on the back manageable with kvoo-sso-lwjlksc hydrocortisone twice daily. Anorexia and nausea seem [...] impression and plan discussed. Shannan Waldrop MD Computer Networking Instructor, [facility] Divisions of Medical Oncology & Hematology Department of Internal Medicine [place] [phone] This note was generated using a voice [...] applicable) CC: Dr. Sharif Christianson MD ~ [facility]08-19-2025 Progress note Author Shannan Waldrop [facility] Note Date/Time April 05, 2025 1: 29pm [facility] [address] [address] OFFICE VISIT Date of Service: 04/05/25 1229 MR#: [id number] Acct: [id number] Name: KAELYN POWERS Rep #: [id number] : 1955 From: Shannan romero MD Age/Sex: 69/F Location[place] [facility] Status: Signed HPI Subjective Date of Service [...] ANTIBODY / CLONE RESULT ER (6F11) negative SD (1E2) negative AE1-3 (AE1/AE3/PCK26) positive CK7 (OV-TL12/30) positive CK8 (86weejL32) positive CK20 (KS20.8) negative TTF-1 (8G7G3/1) positive [...] disease. May 2023: Patient was seen at [facility] by thoracic surgery Dr. Green and [...] therapy with pembrolizumab September 21, 2024. 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 mary beth/jew: Sikh seatbelt use: always do you feel safe [...] no focal motor deficits Coordination / Balance: fqrpfx-nj-unai test normal Speech: speech normal Gait (Neuro): [...] itchy rash on the back manageable with cabu-iwr-neoahpu hydrocortisone twice daily. Anorexia and nausea seem [...] impression and plan discussed. Shannan Waldrop MD Computer Networking Instructor, [facility] Divisions of Medical Oncology & Hematology Department of Internal Medicine [address] [address] This note was generated using a voice [...] applicable) CC: Dr. Sharif Christianson MD ~ [facility] Work Phone: 1(247) 183-681008-11-2025 Radiology Diagnostic study note [facility] Imaging Services [address] [place] [address] Chest AND Abd W/ Contrast MR#: [id number] Acct: [id number] Name: KAELYN POWERS Rep #: [id number] : 1955 F 69 From: Raciel Nunez MD PCP: Dr. Sharif Christianson MD Status: RE G CLI Study:CT Chest AND Abd W/ Contrast Date of Ex am: 03/28/25 Exam# [id number] Ordering Dr: Shannan Waldrop MD PROCEDURE: CT [...] pelvis recommended for further evaluation. Reading Location: [facility] CC: Dr. Sharif Christianson MD; Dr. Shannan Waldrop MD ~ Building Guard Deputy Sheriff: Signed [facility]07-23-2025 Radiology Diagnostic study note [facility] Imaging Services [address] [place] [address] Lumbar Spine 2 or 3 Views MR#: [id number] Acct: [id number] Name: KAELYN POWERS Rep #: [id number] : 1955 F 69 From: Fernando Johnson MD PCP: Dr. Sharif Christianson MD Status: RE G CLI Study:Lumbar Spine 2 or 3 Views Date of Exam: 03/08/25 Exam# [id number] Ordering Dr: Suleiman Gilliland PROCEDURE: LUMBAR SPINE 2 OR 3 VIEWS 03/08/2025 REASON FOR EXAM: CLAUDICATION, LOW BACK PAIN TECHNIQUE: LUMBAR SPINE 2 OR 3 VIEWS FINDINGS: No evidence of acute fracture or dislocation. Moderate degenerative changes of the visualized spine. Grade 1 retrolisthesis of L2 on L3. Jzneeoap-iq-fjmrcr lower lumbar facet arthropathy. RAD/Lumbar Spine 2 or 3 Views IMPRESSION: Spondylosis. Spondylolisthesis. Reading Location: [facility] CC: DENISE Miranda; Dr. Sharif Christianson MD ~ Building Guard Deputy Sheriff: Signed 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 Septem 2024 12:06pm [facility] Work Phone: 1([phone]) 274-635305-20-2025 Evaluation note* Diagnosis Onset Date Resolution Status [...] 10, 2015 acute April 05, 2025 10:45am [facility] Work Phone: 1(386) 322-339405-20-2025 Progress [facility] [address] [place] [address] OFFICE VISIT Date of Service: 01/04/25 1313 MR#: [id number] Acct: [id number] Name: KAELYN POWERS Nataly Rep #: [id number] : 1955 From: Shannan romero MD Age/Sex: 69/F [place] [facility] [place]: Signed HPI Subjective Date [...] ANTIBODY / CLONE RESULT ER (6F11) negative SD (1E2) negative AE1-3 (AE1/AE3/PCK26) positive CK7 (OV-TL12/30) positive CK8 (37egksM35) positive CK20 (KS20.8) negative TTF-1 (8G7G3/1) positive [...] disease. May 2023: Patient was seen at [facility] by thoracic surgery Dr. Green and [...] therapy with pembrolizumab September 21, 2024. 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 mary beth/jew: Sikh seatbelt use: always do you feel safe [...] no focal motor deficits Coordination / Balance: fxapwi-kk-vzcf test normal Speech: speech normal Gait (Neuro): [...] itchy rash on the back manageable with adsp-etz-lntpnyt hydrocortisone twice daily. Anorexia and nausea seem [...] impression and plan discussed. Shannan Waldrop MD Computer Networking Instructor, [facility] Divisions of Medical Oncology & Hematology Department of Internal Medicine [place] [address] This note was generated using a voice [...] Cosigner Signature: Date (if applicable) CC: ~ [facility]05-20-2025 Progress note Author Shannan Waldrop [facility] Note Date/Time January 04, 2025 1:47p m [facility] [address] [place] [address] OFFICE VISIT Date of Service: 01/04/25 1313 MR#: [id number] Acct: [id number] Name: KAELYN POWERS Rep #: [id number] : 1955 From: Shannan romero MD Age/Sex: 69/F Location[place] [facility] Status: Signed HPI Subjective Date of Service [...] ANTIBODY / CLONE RESULT ER (6F11) negative SD (1E2) negative AE1-3 (AE1/AE3/PCK26) positive CK7 (OV-TL12/30) positive CK8 (66ksucN43) positive CK20 (KS20.8) negative TTF-1 (8G7G3/1) positive [...] disease. May 2023: Patient was seen at [facility] by thoracic surgery Dr. Green and [...] therapy with pembrolizumab September 21, 2024. 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 mary beth/jew: Sikh seatbelt use: always do you feel safe [...] no focal motor deficits Coordination / Balance: txqzkz-dh-tyhc test normal Speech: speech normal Gait (Neuro): [...] itchy rash on the back manageable with jgvq-lou-hwiurfb hydrocortisone twice daily. Anorexia and nausea seem [...] impression and plan discussed. 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 Work Phone: 1([phone]) [phone] Evaluation note* Diagnosis Onset Date Resolution Status [...] 10, 2015 acute April 05, 2025 10:45am [facility] Work Phone: 1([phone]) 277-464104-15-2025 Radiology Diagnostic study note [facility] Imaging Services [address] [place] [address] CT Chest AND Abd W/ Contrast MR#: [id number] Acct: [id number] Name: KAELYN POWERS Rep #: [id number] : 1955 F 68 From: Yoko Hayes MD PCP: Dr. Sharif Christianson MD Status: RE G CLI Study:CT Chest AND Abd W/ Contrast Date of Ex am: 11/30/24 Exam# [id number] Ordering Dr: Sabi Olivares NP SLOT MACHINE DEPARTMENT FLOORPERSON-C PROCEDURE: CT CHEST AND ABD W/ CONTRAST [...] abdomen. No definite transition point within the ptujz-yw-gpsb. Lymph nodes: Unremarkable. Vasculature: Advanced diffuse atherosclerosis. Likely at least rzsnxxcr-jw-loxqhy stenoses at the origins of the celiac and SMA, not well evaluated. Likely severe stenosis along the LEFT common iliac artery proximally. Suspect RIGHT VNSQY-fbzkbjb-dkfu-LEFT renal artery stenoses, not well evaluated. Peritoneum: [...] 4. Additional description as above. Reading Location: [id number] CC: LANEY Lynn; Dr. Sharif Christianson MD ~ Building Guard Deputy Sheriff: Signed [facility]04-08-2025 Evaluation note* Diagnosis Onset Date Resolution [...] 222024 10:09am Claudication acute March 08, 10:02am [facility] Work Phone: [phone]) [phone] Evaluation note* Diagnosis Onset Date Resolution Status Admit Date Carotid artery disease acute [facility] 2024 12:49pm Peripheral arterial disease acute November [...] 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 February 222024 10:09am [facility] Work Phone: [phone]) [phone] Evaluation note* Diagnosis Onset Date Resolution Status Admit Date 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 November 02, 2024 9:39am Carotid artery disease acute [facility] 2024 12:49pm Peripheral arterial disease acute November [...] 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 February 222024 10:09am [facility] Work Phone: 1([phone]) [phone] Evaluation note* Diagnosis Onset Date Resolution Status Admit Date Cancer of upper lobe of left lung acute October 12, 025 9:43am Cancer of upper lobe of left lung acute November 02, 2024 9:39am Carotid artery disease acute [facility] 2024 12:49pm Peripheral arterial disease acute November [...] left lung acute January 25, 2025 12:36pm [facility] Work Phone: 1(872) [phone] Evaluation note* Diagnosis Onset Date Resolution Status Admit Date 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 October 12, 025 9:43am 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 November 02, 2024 9:39am Carotid artery disease acute [facility] 2024 12:49pm Peripheral arterial disease acute November [...] 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 January 162024 12:36pm [facility] Work Phone: [phone]) [phone] Evaluation note* Diagnosis Onset Date Resolution Status [...] 02, 2024 9:39am Carotid artery disease acute [facility] 2024 12:49pm Peripheral arterial disease acute November [...] lung acute January 04, 2025 1 2:19pm [facility] Work Phone: [phone]) 268-521912-23-2024 Evaluation note* Diagnosis Onset Date Resolution Status [...] 02, 2024 9:39am Carotid artery disease acute [facility] 2024 12:49pm Peripheral arterial disease acute November 10, 2024 12:49pm Varicose veins of both legs with edema acute November 10, 2024 12:49pm Cancer of upper lobe of left lung acute November 23, 2024 8:36am Encounter for antineoplastic immunotherapy acute November 23, 2024 8:36am [facility] Work Phone: 1(372) 153-109312-05-2023 Procedure [facility] 06-23-2023 NoteHNO ID: [id number] Author: John Green MD, PhD Service: ? Author Type: Physician Type: Progress Notes Filed: 06/23/2023 3:00 PM Note Text: [facility] STAFF PHYSICIAN NOTE OF PERSONAL INVOLVEMENT IN [...] Green MD, PhD DATE OF SERVICE: [facility] 19[facility]11-02-2023 NoteHNO ID: [id number] Author: John Green MD, PhD Service: Thoracic Surgery Author Type: Physician Type: Progress Notes Filed: 07/09/2023 12:12 PM Note Text: [place] [address] [place] DEPARTMENT OF THORACIC AND CARDIOVASCULAR SURGERY NAME: KAELYN POWERS [facility] #: [id number] DATE: 06/19/2023 AGE: 67 PHYSICIAN: John Green [...] the same time, was noted to have DC, which was likely an NSTEMI. The patient [...] ischemic heart disease. John Green M.D., Ph.D. SM:[id number] [facility] 06-19-2023 NoteHNO ID: [id number] Author: John Green MD, PhD Service: ? Author Type: Physician Type: Progress Notes Filed: 06/23/2023 3:00 PM Note Text: [facility] THORACIC SURGERY OUTPATIENT CONSULT NOTE Kaelyn Powers [id number] Requesting Provider: Pinky Winter MD Thoracic Physician: John Green MD Chief Complaint: Lung cancer Impression: 67 yo former 50 pack year smoker F with CAD/DC (ASA+Plavix), SDH s/p crainotomy and evacuation, PAD (cannot walk 10 feet without stopping), EtOH use, who presents with a biopsy proven [id number] NSCLC of the left upper lobe by [...] former 50 pack year smoker F with CAD/DC (ASA+Plavix), SDH s/p crainotomy and evacuation, PAD (cannot walk 10 feet without stopping), EtOH use, who presents with a biopsy proven [id number] NSCLC of the left upper lobe by PET scan. This has been monitored for the last two years. However, over the last year the patient has been hospitalized for a SDH, then COVID, then a mild DC. She did not receive any coronary angioplasty [...] Date: 06/05/2023 Images were obtained outside of [facility] I have personally reviewed the following images/data: Chest X-ray, Pathology, and PFT/screening robbie Outside Paper Medical Records Review personally performed by: Yann Leahy [facility]11-02-2023 NoteHNO ID: [id number] Author: Malena Arias, WILLIAM Service: ? Author [...] Powers DATE: June 19, 2023 TIME: 9:22 [facility]11-02-2023 NoteHNO ID: [id number] Author: Malena Arias, PAIN MEDICINE PHYSICIAN Service: ? Author Type: Registered Resp Therapist Type: Progress Notes Filed: 06/19/2023 9:21 AM Note Text: PULM FUNCTION SMARTBLOCK: Provider: John Green MD, PhD 6 MW: [facility] Progress note Author Gwendolyn Petersen [facility] June 13, 2023 2:24pm Note Date/Time June 13, 2023 8 :08am [facility] Medical Records Department [address] [facility] [address] [address] [place] [address] Progress Note - Hospitalist 06/13/23805 MR#: [id number] Acct: [id number] Name: KAELYN POWERS Rep #:[id number] : 1955 67 From: Gwendolyn Petersen MD PCP: LANEY Ma Status:ADM I N Location: ICU [place] [address] 4-1 Reason for Visit Reason for Visit: Diagnoses Type 2 diabetes mellitus without complications (06/11/23) Encephalopathy, unspecified (06/11/23) Non-ST elevation (NSTEMI) myocardial infarction (06/11/23) Atherosclerotic heart disease of cachil dehe coronary artery without angina pectoris (06/11/23) Peripheral [...] % (Auto) 54.5, Lymph % (Auto) 26.5, [place]% (Auto) 17.6 H, Eos % (Auto) 0.2, [...] documentation, 25minutes Charges/Coding Visit Charges Inpatient E&M: 22159 Subs Hosp L1 06/13/23 1424 <Electronically signed by Gwendolyn Petersen MD> Cosigner Signature (if applicable): CC: ~ Signed [facility] Work Phone: 1(490) 722-541910-27-2023 Progress note Author Gena Johnson [facility] June 13, 2023 12:52pm Note Date/Time June 13, 2023 1 2:52pm [facility] Medical Records Department [address] [place] [address] Progress Note - Cardiology 06/13/23 1248 MR#: [id number] Acct: [id number] Name: KAELYN POWERS Rep #:[id number] : 1955 67 From: Gena Johnson MD [...] % (Auto) 54.5, Lymph % (Auto) 26.5, [place]% (Auto) 17.6 H, Eos % (Auto) 0.2, [...] % (Auto) 54.5, Lymph % (Auto) 26.5, [place] % (Auto) 17.6 H, Eos % (Auto) [...] Understands and agrees with the plan. 06/13/23 5272 <Electronically signed by Gena Johnson MD> Cosigner Signature (if applicable): CC: ~ Signed [facility] Work Phone: 1(506) 374-333810-26-2023 Consult note Author Gena Johnson [facility] June 12, 2023 10:01am Note Date/Time June 12, 2023 1 0:01am [facility] Medical Records Department [address] [place] [address] Consultation - Cardiology 06/12/23 0954 MR#: [id number] Acct: [id number] Name: KAELYN POWERS Rep #:[id number] : 1955 67 From: Gena Johnson MD [...] previous anginal symptoms were throat tightness. 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 mary beth/jew: Sikh seatbelt use: always do you feel safe [...] (Auto) 63.2, Lymph % (Auto) 17.5 L, [place] % (Auto) 17.4 H, Eos % (Auto) [...] % (Auto) 57.7, Lymph % (Auto) 21.6, [place] % (Auto) 18.6 H, Eos % (Auto) [...] (Auto) 63.2, Lymph % (Auto) 17.5 L, [place] % (Auto) 17.4 H, Eos % (Auto) [...] Neut % (Auto)57.7, Lymph % (Auto) 21.6, [place] % (Auto) 18.6 H, Eos % (Auto) 0.0, Baso % (Auto)0.8, Absolute Neuts (auto) 2.3, Nucleated RBC % 0, Sodium 134 L, Potassium 3.7, Chloride 102, Carbon Dioxide 24.0, Anion Gap 8, BUN 11, Creatinine 0.74, Est GFR(MDRD) Af Amer 100, Est GFR (MDRD) Non-Af 83, BUN/Creatinine Ratio 14.8, Oyupnaf970 H, Calcium 8.2 L, Triglycerides 129, Cholesterol [...] , 06/12/23 1001 <Electronically signed by Gena Johsnon MD> Cosigner Signature (if applicable): CC: LANEY Clayton; Dr. Gena Johnson MD; Dr. Nic Caraballo MD~ Signed [facility] Work Phone: 1([phone]) 452-964010-26-2023 History and physical note Author Nic Caraballo [facility] June 12, 2023 9:33am Note Date/Time June 11, 2023 7 :25pm [facility] Medical Records Department [address] [place] [address] H&P Exam - Hospitalist 06/11/231924 MR#: [id number] Acct: [id number] Name: KAELYN POWERS Rep #:[id number] : 1955 67 From: Nic Caraballo MD [...] Imaging showed enlarging spiculated lung mass. 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 mary beth/jew: Sikh seatbelt use: always do you feel safe [...] (Auto) 63.2, Lymph % (Auto) 17.5 L, [place] % (Auto) 17.4 H, Eos % (Auto) [...] 70 minutes. Charges/Coding Visit Charges Inpatient E&M: 50357 Init Hosp L3 06/12/23 0933 <Electronically signed by Nic Caraballo MD> Cosigner Signature (if applicable): CC: LANEY Clayton; Dr. Nic aCraballo MD~ Signed [facility] Work Phone: 1([phone]) 817-715910-26-2023 Progress note Author Gwendolyn Petersen [facility] June 12, 2023 9:32am Note Date/Time June 12, 2023 6 :55am [facility] Medical Records Department [address] [place] [address] Progress Note - Hospitalist 06/12/23 0653 MR#: [id number] Acct: [id number] Name: KAELYN POWERS Rep #:[id number] : 1955 67 From: Gwendolyn Petersen MD [...] (Auto) 63.2, Lymph % (Auto) 17.5 L, [place] % (Auto) 17.4 H, Eos % (Auto) [...] % (Auto) 57.7, Lymph % (Auto) 21.6, [place] % (Auto) 18.6 H, Eos % (Auto) [...] 18:56 EDT Reading Location ID and State: [facility] / [place] Tel [phone], Service support , Physical Exam Narrative General: [...] documentation, 35minutes Charges/Coding Visit Charges Inpatient E&M: 59386 Subs Hosp L2 06/12/23 0932 <Electronically signed by Gwendolyn Petersen MD> Cosigner Signature (if applicable): CC: ~ Signed [facility] Work Phone: 1(757) 948-933510-25-2023 Discharge summary Author Williams Nye [facility] June 11, 2023 8:36pm Note Date/Time June 11, 2023 5 :08pm [facility] Medical Records Department [address] [place] [address] Emergency Department Summary 06/11/23 MR#: [id number] Acct: [id number] Name: KAELYN POWERS Rep #:[id number] : 1955 67 From: Williams Nye DO [...] this morning for a fever. No nausea. 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 mary beth/jew: Sikh seatbelt use: always do you feel safe [...] (Auto) 63.2 Lymph % (Auto) 17.5 L [place] % (Auto) 17.4 H Eos % (Auto) [...] Discharge Plan Disposition Disposition: Acute Care Hospital [facility] Discharge Date/Time: 06/11/23 19:45 What to do if you have Problems For any increased pain, shortness of breath, bleeding, nausea or vomiting, chestpain, or any unexpected problems, contact your Primary Care Provider. Call [facility] ([phone]) or report to the closest Emergency Room. Call 911 if necessary. 06/11/232035 <Electronically signed by Williams Nye DO> Cosigner Signature (if applicable): CC: LANEY Clayton ~ Signed [facility] Work Phone: 1([phone]) 954-634610-06-2022 [facility]10-06-2022 History of Present illness Narrative* Bryce Greer MD - 05/23/2022 11:00 AM EDT NEUROSURGERY POST OP NOTE Dr. Bryce Greer MD, [facility] Date of visit: May 23, 2022 Patient Name: Ms.Debora Nataly Powers Date of : 1955 Current Age: [age] year old MRN/E# [id number] Last Office Visit: 05/07/2022 SURGERY: Right craniotomy [...] a worsening headache. Work-up was completed at [facility] showing a new right-sided subdural hematoma. [...] symptoms. This note was partially generated using [employer] voice recognition system, and there may be some incorrect words, spellings, and punctuation that were not noted in checking the note before saving. documented in this encounterKindred Healthcare09-20-2022 [facility]09-20-2022 History of Present illness Narrative* Bryce Greer MD - 05/07/2022 11:30 AM EDT NEUROSURGERY POST OP NOTE Dr. Bryce Greer MD, [facility] Date of visit: May 07, 2022 Patient Name: Ms.Debora Nataly Powers Date of : 1955 Current Age: [age] year old MRN/E# [id number] Last Office Visit: 04/18/2022 SURGERY: Right craniotomy [...] a worsening headache. Work-up was completed at [facility] showing a new right-sided subdural hematoma. [...] brain. This note was partially generated using [employer] voice recognition system, and there may be some incorrect words, spellings, and punctuation that were not noted in checking the note before saving. documented in this encounterKindred Healthcare09-01-2022 [facility]09[facility] History of Present illness Narrative* Bryce Greer MD - 04/18/2022 1:30 PM EDT NEUROSURGERY POST OP NOTE Dr. Bryce Greer MD, [facility] Date of visit: April 18, 2022 Patient Name: Ms.Debora Nataly Powers Date of : 1955 Current Age: [age] year old MRN/E# [id number] Last Office Visit: Postop SURGERY: Right craniotomy [...] developing a worseningheadache. Work-up was completed at [facility] showing a new right-sided subdural hematoma. [...] visit. This note was partially generated using [employer] voice recognition system, and there may be some incorrect words, spellings, and punctuation that were not noted in checking the note before saving. documented in this encounterKindred Healthcare08-24-2022 Miscellaneous Notes* Telephone Encounter - Maricruz Archer - 04/10/2022 1:50 PM EDT Spoke with patient's nurse at [facility], Mary. She stated patient's typically [...] patient having the CT. documented in this encounterKindred Healthcare08-19-2022 [facility]08-18-20[facility]08[facility]17-20[facility]08-17-20[facility]08-16-2022 [facility]08[facility]16-2022 [facility] History of Present illness Narrative* Ana Zazueta APRN.SILO ERECTOR - 04/01/2022 9:47 AM EDT Images from the original note were not included. Critical Care Transport Note Patient Name: Kaelyn Powers Service Date: 03/28/22 Referring Physician: Gallito Accepting Physician: Guero Referring Facility: [facility] Accepting Facility: [facility] SUBJECTIVE/CHIEF COMPLAINT: I have a bad [...] mass, tobacco and marijuana use.She presented to [facility] today for evaluation of severe H/A [...] physician managing the patient requested transfer to [facility] for tertiary and/or quaternary services unavailable at the referring facility. Patient condition at time of exam was: Acutely ill and critically ill. Due to the unique circumstances of the patient, it was d etermined that this was the closest, most appropriate facility by referring physician. The physician managing the patient requested the [facility] transport and treat the patient for the purpose of tertiary care, evaluation, and management of her acute neurosurgical condition(s). Air medical transport was requested to reduce the [id number] time, 10 minutes by air vs. approximately [...] marijuana use. PAST SURGICAL HISTORY: CA stenting, amry, hyster, crani ALLERGIES: Percocet [Oxycodone-Acetaminophen] SOCIAL HISTORY: [...] SAH, and HTN who was transferred to [facility] for further management Right SDH with [...] status. The patient was transported to the [facility] by [employer] (Helicopter) for tertiary and/or quaternary evaluation and management of her Emergent and Critical Surgical condition(s). Upon arrival to the receiving facility, a [id number] report was given to bedside nursing staff [...] and SAH, Cardiovascular impairment, Respiratory impairment, and GSA COORDINATOR impairment, which the patient had and/or had a high probability of suddenly developing. SIGNATURE: Ana Zazueta APRN.SILO ERECTOR Acute Care Nurse Practitioner [facility] Team documented in this encounterKindred Healthcare08-15-2022 [facility]08-14-2022 [facility]08-14-2022 [facility]08-14-2022 [facility]08-13-2022 [facility]08-13-2022 [facility]08-13-2022 Note [facility]08-12-2022 [facility] 03-29-2022 [facility]08-11-2022 [facility]08-11-2022 [facility]08-11-2022 [facility]08-11-2022 History of Past illness Narrative* Problem Noted Date Resolved Date Subdural hemorrhage 03/28/2022 03/29/2022 Hemorrhagic stroke 03/28/2022 03/28/2022 Skull defect 02/01/2022 02/01/2022 SDH (subdural hematoma) 02/01/2022 02/05/20 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/15/2022 02/01/2022 Acute subdural hematoma 10/28/2021 03/29/20 22 Urinary tract infection with hematuria 7 06/26/2019 documented as of this encounter (statuses as of 04/01/2022) [facility]08-11-2022 History of Past illness Narrative* Problem Noted Date Resolved Date Subdural hemorrhage 03/28/2022 03/29/2022 Skull defect 02/01/2022 02/01/2022 SDH (subdural hematoma) 02/01/2022 02/05/20 22 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/15/2022 02/01/2022 Acute subdural hematoma 10/28/2021 03/29/20 22 Urinary tract infection with hematuria 7 06/26/2019 Chronic anticoagulation 10/21/2016 04/03/20 22 documented as of this encounter (statuses as of 04/09/2022) [facility]08-11-2022 History of Past illness Narrative* Problem Noted Date Resolved Date Subdural hemorrhage 03/28/2022 03/29/2022 Skull defect 02/01/2022 02/01/2022 SDH (subdural hematoma) 02/01/2022 02/05/20 22 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/15/2022 02/01/2022 Acute subdural hematoma 10/28/2021 03/29/20 22 Urinary tract infection with hematuria 7 06/26/2019 Chronic anticoagulation 10/21/2016 04/03/20 22 documented as of this encounter (statuses as of 04/10/2022) [facility]08-11-20[facility] History of Past illness Narrative* Problem Noted Date Resolved Date Subdural hemorrhage 03/28/2022 03/29/2022 Skull defect 02/01/2022 02/01/2022 SDH (subdural hematoma) 02/01/2022 02/05/20 22 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/15/2022 02/01/2022 Acute subdural hematoma 10/28/2021 03/29/20 22 Urinary tract infection with hematuria 7 06/26/2019 Chronic anticoagulation 10/21/2016 04/03/20 22 documented as of this encounter (statuses as of 04/18/2022) [facility]08-11-[facility] History of Past illness Narrative* Problem Noted Date Resolved Date Subdural hemorrhage 03/28/2022 03/29/2022 Skull defect 02/01/2022 02/01/2022 SDH (subdural hematoma) 02/01/2022 02/05/20 22 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/15/2022 02/01/2022 Acute subdural hematoma 10/28/2021 03/29/20 22 Urinary tract infection with hematuria 7 06/26/2019 Chronic anticoagulation 10/21/2016 04/03/20 22 documented as of this encounter (statuses as of 04/19/2022) [facility]08-11-20[facility] History of Past illness Narrative* Problem Noted Date Resolved Date Subdural hemorrhage 03/28/2022 03/29/2022 Skull defect 02/01/2022 02/01/2022 SDH (subdural hematoma) 02/01/2022 02/05/20 22 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/15/2022 02/01/2022 Acute subdural hematoma 10/28/2021 03/29/20 22 Urinary tract infection with hematuria 7 06/26/2019 Chronic anticoagulation 10/21/2016 04/03/20 22 documented as of this encounter (statuses as of 05/07/2022) [facility]08-11-[facility] History of Past illness Narrative* Problem Noted Date Resolved Date Subdural hemorrhage 03/28/2022 03/29/2022 Skull defect 02/01/2022 02/01/2022 SDH (subdural hematoma) 02/01/2022 02/05/20 22 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/15/2022 02/01/2022 Urinary tract infection with hematuria 7 06/26/2019 Chronic anticoagulation 10/21/2016 04/03/20 22 documented as of this encounter (statuses as of 05/23/2022) [facility]08-11-20[facility] History of Past illness Narrative* Problem Noted Date Resolved Date Subdural hemorrhage 03/28/2022 03/29/2022 Skull defect 02/01/2022 02/01/2022 SDH (subdural hematoma) 02/01/2022 02/05/20 22 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/15/2022 02/01/2022 Urinary tract infection with hematuria 7 06/26/2019 Chronic anticoagulation 10/21/2016 04/03/20 22 documented as of this encounter (statuses as of 05/24/2022) [facility]07-26-2022 [facility]07-26-[facility] History of Present illness Narrative* Bryce Greer MD - 03/12/2022 10:30 AM EDT NEUROSURGERY POST OP NOTE Dr. Bryce Greer MD, [facility] Date of visit: March 12, 2022 Patient Name: Ms.Debora Nataly Powers Date of : 1955 Current Age: [age] year old MRN/E# [id number] Last Office Visit: 02/14/2022 SURGERY: Cranioplasty for [...] evaluation. This note was partially generated using [employer] voice recognition system, and there may be some incorrect words, spellings, and punctuation that were not noted in checking the note before saving. documented in this encounterKindred Healthcare06-30-2022 [facility]06-30-[facility] History of Present illness Narrative* Bryce Greer MD - 02/14/2022 11:00 AM EDT NEUROSURGERY POST OP NOTE Dr. Bryce Greer MD, FACS Date of visit: February 14, 2022 Patient Name: Ms.Debora Nataly Powers Date of : 1955 Current Age: [age] year old MRN/E# [id number] Last Office Visit: post op SURGERY: Cranioplasty [...] consult on 10/28/2021 after being transferred from [facility] after a ground-level fall while on ASA and Plavix. On presentation to the [facility] emergency department new imaging was obtained [...] for evaluation and plan of care. 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 No signs [...] 03/14/2022). This note was partially generated using [employer] voice recognition system, and there may be some incorrect words, spellings, and punctuation that were not noted in checking the note before saving. documented in this encounterKindred Healthcare06-23-2022 Miscellaneous Notes* Telephone Encounter - Donna Morales RN - 02/07/2022 3:05 PM EDT PATIENT INFORMATION Record ID: [id number] Patient Name: [facility]: [facility] [place]: [facility] Attending: Bryce Greer Center: Neurosurgery [facility] INSTRUCTIONS All Clear SN to remind patient of next upcoming appointment date, time, location All Clear All Clear All Clear SURVEY INFORMATION Medical/Nurse Co Founder And Chairman: Donna Morales 1. Your discharge instructions are [...] symptoms? (Standard Question) No documented in this encounterKindred Healthcare06-20-2022 [facility]06-19-2022 [facility]06-18-2022 [facility]06-18-2022 [facility]06-17-2022 History of Past illness Narrative* Problem Noted Date Resolved Date Skull defect 02/01/2022 02/01/2022 SDH (subdural hematoma) 02/01/2022 02/05/20 22 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/15/2022 02/01/2022 Urinary tract infection with hematuria 7 06/26/2019 documented as of this encounter (statuses as of 02/07/2022) [facility]06-17-20[facility] History of Past illness Narrative* Problem Noted Date Resolved Date Skull defect 02/01/2022 02/01/2022 SDH (subdural hematoma) 02/01/2022 02/05/20 22 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/15/2022 02/01/2022 Urinary tract infection with hematuria 7 06/26/2019 documented as of this encounter (statuses as of 02/14/2022) [facility]06-17-[facility] History of Past illness Narrative* Problem Noted Date Resolved Date Skull defect 02/01/2022 02/01/2022 SDH (subdural hematoma) 02/01/2022 02/05/20 22 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/15/2022 02/01/2022 Urinary tract infection with hematuria 7 06/26/2019 documented as of this encounter (statuses as of 03/12/2022) [facility]06-17-2022 [facility]06-17-2022 [facility]06-07-2022 History and physical note* Ban Donnelly APRN.SILO ERECTOR - 01/22/2022 1:40 PM EDT Images from [...] Respiratory: Denies coughing, wheezing, SOB Cardiovascular: HTN, CAD-DC, stent x 1 2015, last senior occupational therapist visit Dr. Davis, she thinks last visit [...] 356 QTC Calculation (Bazett) 418 Calculated P [place] 56 Calculated R [place] 75 Calculated T [place] 62 Impression NORMAL SINUS RHYTHM WITH SINUS ARRHYTHMIA LOW VOLTAGE QRS BORDERLINE ECG WHEN COMPARED WITH ECG OF 11-OCT-2015 05:21, NO SIGNIFICANT CHANGE WAS FOUND Confirmed by MD BRIAN, [facility] ([id number]) on 10/30/2021 7:53:36 PM No results found for this or any previous visit (from the past 72574 hour(s)). Assessment No problem-specific Assessment & Plan [...] 5.7 11/2021, FBS 112 HTN-controlled with meds CAD-DC, stent x 1 2015, last senior occupational therapist visit Dr. Davis 09/2021, clearance scanned in [facility] Assessment/Plan PLAN Planned Procedure: Procedure(s): REPLACEMENT OF BONE FLAP SKULL (N/A) CONSULTS Cardiac clearance-Dr. Ryan Oh scanned in [facility] The Following Tests/Procedures Have Been Initiated: CBC, BMP, PT/PTT,COVID ordered in [facility] per surgeon COVID test scheduled 01-29-2022 11am. Patient aware and verbalizes understanding. EKG ordered in [facility] per surgeon-EKG not completed in [facility] today- patient had an EKG completed 10-29-2021 Result: NORMAL SINUS RHYTHM WITH SINUS ARRHYTHMIA Instructions Given to Patient: Instructions located in the after visit summary. Hibiclens and instructions given to patient. Patient given verbal and written preop instructions and voices comprehension and compliance. SIGNATURE: Ban Donnelly APRN.CNP PATIENT NAME: Kaelyn Powers DATE: January 22, 2022 TIME: 12:00 PM PAGER/CONTACT #: documented in this encounterKindred Healthcare06-07-2022 Instructions* Patient Instructions* Ban Donnelly APRN.EVELIA - 01/22/2022 1:40 PM EDT PATIENT PREOPERATIVE INSTRUCTIONS Bryce Greer MD has scheduled you for your procedure at this surgery center: [facility]: [phone], [address] [address] Please read below carefully for your personalized [...] - Stop Vitamin E, fish oil, Ginko, [place]'s Wort, flax seed oil, multivitamins, CBD oil, [...] surgery. Ban Donnelly APRN.EVELIA documented in this encounterKindred Healthcare05-31-2022 [facility]05-31-20[facility] History of Present illness Narrative* Bryce Greer MD - 01/15/2022 11:15 AM EDT NEUROSURGERY POST OP NOTE Dr. Bryce Greer MD, [facility] Date of visit: January 15, 2022 Patient Name: Ms.Debora Nataly Powers Date of : 1955 Current Age: [age] year old MRN/E# [id number] Last Office Visit: 12/18/2021 SURGERY #1: Left [...] consult on 10/28/2021 after being transferred from [facility] after a ground-level fall while on ASA and Plavix. On presentation to the [facility] emergency department new imaging was obtained [...] cranioplasty. This note was partially generated using [employer] recognition system, and there may be some incorrect words, spellings, and punctuation that were not noted in checking the note before saving. documented in this encounterKindred Healthcare05-03-2022 [facility]05-03-2022 [facility]04-05-2022 [facility]04-05-2022 [facility]03-30-2022 [facility]03-29-2022 [facility]03-29-2022 Note [facility]03-28-2022 [facility] 11-11-2021 [facility]03-27-2022 [facility]03-26-2022 [facility]03-26-2022 [facility]03-25-2022 [facility]03-24-2022 [facility]03-23-2022 [facility]03-23-2022 Note [facility]03-23-2022 [facility] 11-06-2021 [facility]03-22-2022 [facility]03-22-2022 [facility]03-21-2022 [facility]03-21-2022 [facility]03-21-2022 [facility]03-20-2022 [facility]03-20-2022 Note [facility]03-20-2022 [facility] 11-03-2021 [facility]03-19-2022 [facility]03-19-2022 [facility]03-18-2022 [facility]03-18-2022 [facility]03-18-2022 [facility]03-18-2022 [facility]03-17-2022 Note [facility]03-17-2022 [facility] 10-31-2021 [facility]03-16-2022 [facility]03-15-2022 [facility]03-15-2022 [facility]-2022 [facility]03-14-2022 [facility]03-14-2022 [facility]03-14-2022 Note [facility]03-13-2022 [facility] 10-28-2021 [facility]03-13-2022 [facility]03-13-2022 [facility]03-06-2017 History of Past illness Narrative* Problem Noted Date Resolved Date Urinary tract infection with hematuria 7 06/26/2019 documented as of this encounter (statuses as of 11/10/2021) [facility]03-[facility]-2017 History of Past illness Narrative* Problem Noted Date Resolved Date Urinary tract infection with hematuria 7 06/26/2019 documented as of this encounter (statuses as of 01/15/2022) [facility]03-[facility]-2017 History of Past illness Narrative* Problem Noted Date Resolved Date Urinary tract infection with hematuria 7 06/26/2019 documented as of this encounter (statuses as of 01/15/2022) [facility]03-[facility]-2017 History of Past illness Narrative* Problem Noted Date Resolved Date Urinary tract infection with hematuria 7 06/26/2019 documented as of this encounter (statuses as of 01/16/2022) [facility]03-[facility]-2017 History of Past illness Narrative* Problem Noted Date Resolved Date Urinary tract infection with hematuria 7 06/26/2019 documented as of this encounter (statuses as of 01/17/2022) [facility]03-[facility]-2017 History of Past illness Narrative* Problem Noted Date Resolved Date Urinary tract infection with hematuria 7 06/26/2019 documented as of this encounter (statuses as of 01/22/2022) [facility] HealthcareDischarge summary Author Gwendolyn Petersen [facility] June 14, 2023 10:12am Note Date/Time June 14, 2023 1 0:12am [facility] Medical Records Department [address] [place] [address] Instructions for Home/Discharge Instructions 06/14/23 1010 MR#: [id number] Acct: [id number] Name: KAELYN POWERS Rep #:[id number] : 1955 67 From: Gwendolyn Petersen MD PCP: Iris Clayton SLOT MACHINE DEPARTMENT FLOORPERSON-C Status:ADM I N Discharge Instructions Diet Discharge [...] to schedule your hospital follow-up appointment ( [phone]) - Please follow-up with oncology upon discharge [...] MD; Dr. Nic Caraballo MD ~ Signed [facility] Work Phone: Discharge summary Author Gwendolyn Petersen [facility] June 14, 2023 10:14am Note Date/Time June 14, 2023 1 0:14am [facility] Medical Records Department [address] [place] [address] Discharge Summary 06/14/23 1012 MR#: [id number] Acct: [id number] Name: HODAKAELYN Nataly Rep #:[id number] : 1955 67 From: Gwendolyn Petersen MD [...] % (Auto) 56.4, Lymph % (Auto) 28.0, [place]% (Auto) 13.9 H, Eos % (Auto) 1.0, [...] [place] at discharge?: Yes Done w/ Acute DC measure.: Yes Documented LVEF (%): 60 Discharge [...] to schedule your hospital follow-up appointment ( [phone]) - Please follow-up with oncology upon discharge [...] Self Care Charges/Coding Visit Charges Inpatient E&M: 99959 Disch Hosp >30min 06/14/23 1014 <Electronically signed by Gwendolyn Petersen MD> Cosigner Signature (if applicable): CC: LANEY Clayton; Dr. Gwendolyn Petersen MD~ Signed [facility] Work Phone: Discharge summary Author Isreal Carvalho [facility] July 22, 2023 12:53pm Note Date/Time July 22, 2023 1 2:53pm [facility] Medical Records Department [address] [place] [address] Instructions for Home/Discharge Instructions 07/22/23 1253 MR#: [id number] Acct: [id number] Name: KAELYN POWERS Rep #:[id number] : 1955 67 From: Isreal cross MD PCP: Dr. Sharif Christianson MD Status:[facility] [place] Instructions Procedure Port-A-Cath Diet Discharge Diet: [...] With: Isreal Carvalho MD When: as needed [phone] Test Results: Test results from this visit [...] Isreal Carvalho MD>Isreal Carvalho MD CC: Dr. Shairf Christianson MD ~ Signed [facility] Work Phone: Evaluation note* Diagnosis Intracranial hemorrhage (HCC) Unspecified intracranial hemorrhage documented in this encounter [facility]* Diagnosis Onset Date Resolution Status Adenomatous polyps chronic Diverticulosis chronic Gastritis chronic Iron deficiency anemia due to chronic blood loss chronic Left upper lobe pulmonary nodule chronic Atherosclerosis of coronary artery of [place] heart without angina pectoris chronic Essential (primary) hypertension chronic Hyperlipidemia chronic Peripheral vascular occlusive disease chronic Adenomatous polyps chronic Diverticulosis chronic Gastritis chronic Iron deficiency anemia due to chronic blood loss chronic Left upper lobe pulmonary nodule [facility] Work Phone: Evaluation note* Diagnosis Intracranial hemorrhage (HCC)- Primary Unspecified intracranial hemorrhage Acquired skull defect Other specified acquired deformity of head [facility]* Diagnosis Intracranial hemorrhage (HCC)- Primary Unspecified intracranial hemorrhage Acquired skull defect Other specified acquired deformity of head documented [facility]* Diagnosis Intracranial hemorrhage (HCC) Unspecified intracranial hemorrhage documented [facility]* Diagnosis Skull defect- Primary Unspecified acquired deformity of head Skull defect Unspecified acquired deformity of head documented [facility]* Diagnosis Preop examination Preoperative examination, unspecified Defect of skull Unspecified acquired deformity of head Hypertension, unspecified type Diabetes mellitus without complication (HCC) Type II or unspecified type diabetes mellitus without mention of complication, not stated as uncontrolled Coronary artery disease involving [place] coronary artery of [place] heart without angina pectoris Skull defect Unspecified acquired deformity of head [facility]* Diagnosis Intracranial hemorrhage (HCC)- Primary Unspecified intracranial hemorrhage Acquired skull defect Other specified acquired deformity of head [facility]* Diagnosis Intracranial hemorrhage (HCC)- Primary Unspecified intracranial hemorrhage documented [facility]* Diagnosis Intracranial hemorrhage (HCC)- Primary Unspecified intracranial hemorrhage documented [facility]* Diagnosis Subdural hemorrhage (HCC) Subdural hemorrhage documented [facility] this [facility]* Diagnosis Onset Date Resolution Status Atherosclerosis of coronary artery of [place] heart without angina pectoris chronic Essential (primary) hypertension chronic Hyperlipidemia chronic Peripheral vascular occlusive disease chronic Iron deficiency anemia due t o chronic blood loss chronic Physical debility acute S/P craniotomy acute Subdural hematoma acute Type 2 diabetes mellitus acu te Urinary incontinence acute Acute on chronic blood loss anemia chronic Atherosclerosis of coronary artery of [place] heart without angina pectoris chronic Essential (primary) hypertension chronic History of coronary artery stent placement October 102015 chronic Hyperlipidemia chronic Iron deficiency anemia due t o chronic blood loss chronic Nicotine dependence chronic Peripheral vascular occlusive disease [facility] Work Phone: Evaluation note* Diagnosis Intracranial hemorrhage (HCC)- Primary Unspecified intracranial hemorrhage [facility] Diagnosis Acute subdural hematoma- Primary Subdural hemorrhage Intracranial hemorrhage (HCC) Unspecified intracranial hemorrhage [facility] Diagnosis Intracranial hemorrhage (HCC) Unspecified intracranial hemorrhage [facility]* Diagnosis Onset Date Resolution Status Adenomatous [...] upper lobe pulmonary nodule chronic Palpitations acute [facility] Work Phone: Evaluation note* Diagnosis Onset [...] chronic Left upper lobe pulmonary nodule chronic [facility] Work Phone: Evaluation note* Diagnosis Onset Date Resolution Status Adenomatous polyps chronic Diverticulosis chronic Gastritis chronic Iron deficiency anemia due to chronic blood loss chronic Left upper lobe pulmonary nodule chronic Palpitations acute Iron deficiency anemia due to chronic blood loss chronic Left upper lobe pulmonary nodule chronic [facility] Work Phone: Evaluation note* Diagnosis Onset Date Resolution Status Iron deficiency anemia due to chronic blood loss chronic Left upper lobe pulmonary nodule chronic Claudication resolved [facility] Work Phone: Evaluation note* Diagnosis Onset Date Resolution Status Claudication resolved [facility] Work Phone: Evaluation note* Diagnosis Onset Date Resolution Status Iron deficiency anemia due to chronic blood loss chronic Left upper lobe pulmonary nodule chronic [facility] Work Phone: Evaluation noteNo assessment information available [facility] Work Phone: Evaluation note* Diagnosis Onset Date Resolution Status Coronary artery disease acut e COVID-19 acute Diabetes acute Encephalopathy acute acute NSTEMI, initial episode of care acute Peripheral arterial disease acute [facility] Work Phone: evaluation note* Diagnosis Onset [...] device acute NSTEMI, initial episode of care [facility] Work Phone: evaluation note* Diagnosis Onset [...] Cancer of upper lobe of left lung [facility] Work Phone: Evaluation note* Diagnosis Onset [...] of upper lobe of left lung acute [facility] Work Phone: Evaluation note* Diagnosis Onset [...] of upper lobe of left lung acute [facility] Work Phone: Evaluation note* Diagnosis Onset [...] of upper lobe of left lung acute [facility] Work Phone: History and physical note Author Isreal Carvalho [facility] July 22, 2023 12:02pm Note Date/Time July 22, 2023 1 2:03pm [facility] Medical Records Department [address] [place] [address] History & Physical Exam 07/22/23 1202 MR#: [id number] Acct: [id number] Name: KAELYN POWERS Rep #:[id number] : 1955 67 From: Isreal cross MD PCP: Dr. 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 mary beth/jew: Sikh seatbelt use: always do you feel safe [...] preparation for surgery. Isreal Carvalho MD Pager: [facility] [address] [place] [address], [address] [place] [phone] Office: I have examined the patient and the H&P has been reviewed. There are no clinicalchanges since date of exam. 07/22/23 1202 <Electronically signed by Isreal Carvalho MD> Cosigner Signature (if applicable): CC: Dr. Isreal Carvalho MD; Dr. Sharif Christianson MD~ Signed [facility] Work Phone: Progress note Author Shannan Waldrop [facility] Note Date/Time May 17, 2025 1:31pm [facility] [address] [place] [address] OFFICE VISIT Date of Service: 05/17/25 1307 MR#: [id number] Acct: [id number] Name: KAELYN POWERS Rep #: [id number] : 1955 From: Shannan romero MD Age/Sex: 69/F [place] [facility] [place]: Signed HPI Subjective Date [...] ANTIBODY / CLONE RESULT ER (6F11) negative SD (1E2) negative AE1-3 (AE1/AE3/PCK26) positive CK7 (OV-TL12/30) positive CK8 (49dtkeV15) positive CK20 (KS20.8) negative TTF-1 (8G7G3/1) positive [...] disease. May 2023: Patient was seen at [facility] by thoracic surgery Dr. Green and [...] therapy with pembrolizumab September 21, 2024. 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 mary beth/jew: Sikh seatbelt use: always do you feel safe [...] no focal motor deficits Coordination / Balance: fvulux-yn-ryyl test normal Speech: speech normal Gait (Neuro): [...] itchy rash on the back manageable with alhy-amh-fkwbjfv hydrocortisone twice daily. Anorexia and nausea seem [...] impression and plan discussed. Shannan Waldrop MD Computer Networking Instructor, [facility] Divisions of Medical Oncology & Hematology Department of Internal Medicine [place] [address] This note was generated using a voice [...] Cosigner Signature: Date (if applicable) CC: ~ [facility] Work Phone: Progress note Author Sabi Lynn [facility] Note Date/Time June 07, 2025 1 2:43pm [facility] [place] [address] OFFICE VISIT Date of Service: 06/07/25 1059 MR#: [id number] Acct: [id number] Name: KAELYN POWERS Rep #: [id number] : 1955 From: Sabi Jc ch SLOT MACHINE DEPARTMENT FLOORPERSON SLOT MACHINE DEPARTMENT FLOORPERSON-C Age/Sex: 69/F [place] [facility] Status: Signed HPI Subjective Date of Service [...] ANTIBODY / CLONE RESULT ER (6F11) negative SD (1E2) negative AE1-3 (AE1/AE3/PCK26) positive CK7 (OV-TL12/30) positive CK8 (79wkdmI79) positive CK20 (KS20.8) negative TTF-1 (8G7G3/1) positive [...] disease. May 2023: Patient was seen at [facility] by thoracic surgery Dr. Green and [...] doses of levothyroxine since her last visit. 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 mary beth/jew: Sikh seatbelt use: always do you feel safe [...] itchy rash on the back manageable with uaux-kwc-guakhyc hydrocortisone twice daily. Anorexia and nausea seem [...] Cosigner Signature: Date (if applicable) CC: ~ [facility] Work Phone: Reason for referral (narrative)* Outpatient Procedure (Routine) - Pending Review Specialty Diagnoses / Procedures Referred By Shweta mirza [facility] Diagnoses Intracranial hemorrhage (HCC) Acquired skull defect Procedures ECG COMPLETE ECG ROUTINE ECG W/LEAST 12 LDS W/I&R Kacy Glez, SALES APPLICATIONS ENGINEER.SILO ERECTOR [address] [facility] [place] [address] [facility] [place] [address] Referral ID Status Reason Start Date Expiration Date Visits Requested Visits Authorized [id number] Pending Review Auto-Generat ed Referral 01/15/2022 01/15/2023 1 1 [facility]ative[facility]No [facility] for [facility] Work Phone: Summary Purpose Family History [...] FoundDocuments on File Type Date Recorded Patient Director Regulatory Affairs Expl anation Advance Directive(s) 10/28/2021 3:03 AM [...] No October 27, 2021 10:32pm Power of Trapper Animal No October 27 10:32pm Documents on File Type Date Recorded Patient Director Regulatory Affairs Expl anation Advance Directive(s) 10/28/2021 3:03 AM [...] Documents on File Type Date Recorded Patient Director Regulatory Affairs Expl anation Advance Directive(s) 02/01/2022 6:37 AM Advance Directive(s) 10/28/2021 3:03 AM Advance Directive(s) 10/21/2019 10:22 AM Advance Directive(s) 07/05/2019 6:53 AM Advance Directive Response Recorded Date/ Time Advance Directives No June 18, 2018 10:36am Living Will No March 28 10:34am Power of Trapper Animal No March 28 10:34am Latest Code Status [...] Date/ Time Name of Medical Power of Trapper Animal ELROY- VENTURA April 23, 2022 10:55am Advance Directives No June 18, 2018 10:36am Living Will Yes April 23 10:55am Power of Trapper Animal Yes April 23, 2022 10:55am Advance Directive Response Recorded Date/ Time Advance Directives No June 18, 2018 10:36am Living Will No April 08 2:39pm Power of Trapper Animal No April 08 2:39pm Advance Directive Response Recorded Date/ Time Name of Medical Power of Trapper Animal ELROY- VENTURA April 23, 2022 9:55am Advance Directives No June 18, 2018 9:36am Living Will Yes April 23 9:55am Power of Trapper Animal Yes April 23, 2022 9:55am Advance Directive Response Recorded Date/ Time Advance Directives No June 18, 2018 9:36am Living Will Yes April 23 9:55am Power of Trapper Animal Yes April 23, 2022 9:55am Advance Directive Response Recorded Date/ Time Advance Directives No June 18, 2018 10:36am Living Will Yes April 23 10:55am Power of Trapper Animal Yes April 23, 2022 10:55am Advance Directive Response Recorded Date/ Time Advance Directives No June 18, 2018 10:36am Living Will No June 11 3:14pm Power of Trapper Animal No June 11, 2023 3:14pm Advance Directive Response Recorded Date/ Time Advance Directives No June 18, 2018 10:36am Living Will No June 11 7:53pm Power of Trapper Animal No June 11, 2023 7:53pm Advance Directive Response Recorded Date/ Time Advance Directives No June 7:11am Living Will No July 17 023 12:57pm Power of Trapper Animal No July 17, 2023 12:57pm Advance Directive Response Recorded Date/ Time Advance Directives No July 9:52am Living Will No July 28 9:52am Power of Trapper Animal No July 28, 2023 9:52am Advance Directive Response Recorded Date/ Time Advance Directives No September 01, 2023 10:25am Living Will No September 01 10:25am Power of Trapper Animal No September 01, 2023 10:25am Advance Directive Response Recorded Date/ Time Advance Directives No October 29 024 10:30am Living Will No October 30, 2023 10:30am Power of Trapper Animal No October 29 10:30am Advance Directive Response Recorded Date/ Time Living Will No October 30, 2023 10:30am Do you have a Healthcare Power of Trapper Animal? No October 30, 2023 10:30am Living Will No November 23, 2024 10:40am Do you have a Healthcare Power of Trapper Animal? No November 23, 2024 10:40am Advance Directives No November 23 10:40am Advance Directive Response Recorded Date/ Time Living Will No December 14, 2024 11:42am Do you have a Healthcare Power of Trapper Animal? No December 14, 2024 11:42am Advance Directives No December 14 11:42am Advance Directive Response Recorded Date/ Time Living Will No January 04, 2025 2 :16pm Do you have a Healthcare Power of Trapper Animal? No January 04, 2025 2:16pm Advance Directives No January 04 2:16pm Advance Directive Response Recorded Date/ Time Living Will No February 22, 2025 1 2:20pm Do you have a Healthcare Power of Trapper Animal? No February 22, 2025 12:20pm Advance Directives No February 22 12:20pm Advance Directive Response Recorded Date/ Time Living Will No March 15, 2025 12:55pm Do you have a Healthcare Power of Trapper Animal? No March 15, 2025 12:55pm Advance Directives No March 15 12:55pm Advance Directive Response Recorded Date/ Time Living Will No October 30, 2023 10:30am Do you have a Healthcare Power of Trapper Animal? No October 30, 2023 10:30am Living Will No March 15, 2025 12:55pm Do you have a Healthcare Power of Trapper Animal? No March 15, 2025 12:55pm Advance Directives No March 15 12:55pm Advance Directive Response Recorded Date/ Time Living Will No October 30, 2023 10:30am Do you have a Healthcare Power of Trapper Animal? No October 30, 2023 10:30am Living Will No April 05 1:40pm Do you have a Healthcare Power of Trapper Animal? No April 05, 2025 1:40pm Advance Directives No April 05, 2025 1:40pm Advance Directive Response Recorded Date/ Time Living Will No October 30, 2023 10:30am Do you have a Healthcare Power of Trapper Animal? No October 30, 2023 10:30am Living Will No April 26 12:27pm Do you have a Healthcare Power of Trapper Animal? No April 26, 2025 12:27pm Advance Directives No April 12:27pm Advance Directive Response Recorded Date/ Time Living Will No October 30, 2023 10:30am Do you have a Healthcare Power of Trapper Animal? No October 30, 2023 10:30am Living Will No May 17, 2025 2:49pm Do you have a Healthcare Power of Trapper Animal? No May 17, 2025 2:49pm Advance Directives No April 2:49pm Advance Directive Response Recorded Date/ Time Living Will No October 30, 2023 10:30am Do you have a Healthcare Power of Trapper Animal? No October 30, 2023 10:30am Living Will No June 07 12:06pm Do you have a Healthcare Power of Trapper Animal? No June 07, 2025 12:06pm Advance Directives No June 07, 2025 12:06pm Advance Directive Response Recorded Date/ Time Living Will No October 30, 2023 9:30am Do you have a Healthcare Power of Trapper Animal? No October 30, 2023 9:30am Living Will No June 07 11:06am Do you have a Healthcare Power of Trapper Animal? No June 07, 2025 11:06am Advance Directives No June 07, 2025 11:06am Reason for Referral Specialty Diagnoses / Procedures Referred By Contac t Referred To Contact CT IMAGING Diagnoses Intracranial hemorrhage (HCC) Procedures CT BRAIN WO IVCON CT HEAD/BRAIN W/O CONTRAST MATERIAL Loan Rivas, TANK [address] [place] [address] Ct Imaging Referral ID Status Reason Start Date Expiration Date Visits Requested Visits Authorized [id number] Pending Review Auto-Generat ed Referral 11/10/2021 12/10/2022 1 1 Specialty Diagnoses / Procedures Referred By Contac t Referred To Contact CT IMAGING Diagnoses Intracranial hemorrhage (HCC) Procedures CT BRAIN WO IVCON CT HEAD/BRAIN W/O CONTRAST MATERIAL Kacy Glez, SALES APPLICATIONS ENGINEER.SILO ERECTOR [address] [place] [address] Ct Imaging Referral ID Status Reason Start Date Expiration Date V isits Requested Visits Authorized [id number] Closed Auto-Generate d Referral 12/25/2021 02/25/2022 1 1 Specialty Diagnoses / Procedures Referred By Contac t Referred To Contact CT IMAGING Diagnoses Subdural hemorrhage (HCC) Procedures CT BRAIN WO IVCON CT HEAD/BRAIN W/O CONTRAST MATERIAL Jitendra Apple, SALES APPLICATIONS ENGINEER.SILO ERECTOR [address] [address] [address] Imaging Referral ID Status Reason Start Date Expiration Date V isits Requested Visits Authorized [id number] Closed Auto-Generate d Referral 04/12/2022 05/05/2023 1 1 Referral ID Status Reason Start Date Expiration Date Visits Requested Visits Authorized [id number] Waiting for Response Auto-Generat ed Referral 05/07/2022 06/06/2023 1 1 Referral ID Status Reason Start Date Expiration Date V isits Requested Visits Authorized [id number] Closed Auto-Generate d Referral 05/07/2022 07/07/2022 1 [...] pulmonary nodule Atherosclerosis of coronary artery of cachil dehe heart without angina pectoris Essential (primary) hypertension [...] pulmonary nodule Atherosclerosis of coronary artery of [place] heart without angina pectoris Essential (primary) hypertension [...] pulmonary nodule Atherosclerosis of coronary artery of [place] heart without angina pectoris Essential (primary) hypertension [...] pulmonary nodule Atherosclerosis of coronary artery of [place] heart without angina pectoris Essential (primary) hypertension [...] Visit Atherosclerosis of c oronary artery of c[place] dehe heart without angina pectoris Essential (primary) hypertension Hyperlipidemia Peripheral vascular occlusive disease Iron deficiency anemia due to chronic blood loss Physical debility S/P craniotomy Subdural hematoma Type 2 diabetes mellitus Urinary incontinence Acute on chronic blood loss anemia Atherosclerosis of coronary artery of [place] heart without angina pectoris Essential (primary) hypertension [...] Visit Atherosclerosis of c oronary artery of [place] de[place] heart without angina pectoris Essential (primary) hypertension Hyperlipidemia Peripheral vascular occlusive disease Iron deficiency anemia due to chronic blood loss Physical debility S/P craniotomy Subdural hematoma Type 2 diabetes mellitus Urinary incontinence Acute on chronic blood loss anemia Atherosclerosis of coronary artery of [place] heart without angina pectoris Essential (primary) hypertension [...] Visit Atherosclerosis of c oronary artery of [place] de[place] heart without angina pectoris Essential (primary) hypertension Hyperlipidemia Peripheral vascular occlusive disease Iron deficiency anemia due to chronic blood loss Physical debility S/P craniotomy Subdural hematoma Type 2 diabetes mellitus Urinary incontinence Acute on chronic blood loss anemia Atherosclerosis of coronary artery of [place] de[place] heart without angina pectoris Essential (primary) hypertension [...] NEW LUNG CA CONSULT - LUNG S/P [facility] NSTEMI 06/28/23 POSS HEART CATH SOLITARY PULMONARY [...] NEW LUNG CA CONSULT - LUNG S/P [facility] NSTEMI 06/28/23 POSS HEART CATH NSTEMI CHEMO [...] lung Chief Complaint NSTEMI, COVID 19, AC PAIUTE-SHOSHONE ENCEPHALOPATHY NSTEMI, COVID 19, ACUTE ENCEPHALOPATHY NSTEMI, COVID 19, ACUTE ENCEPHALOPATHY NSTEMI, COVID 19, ACUTE ENCEPHALOPATHY NSTEMI, COVID 19, ACUTE ENCEPHALOPATHY EST PT - NEW LUNG CA CONSULT - LUNG S/P [facility] NSTEMI 06/28/23 POSS HEART CATH NSTEMI CHEMO [...] DATE CREATED AUTHOR AUTHOR'S ORGANIZ ATION 05/26/2023 [facility] DATE CREATED AUTHOR AUTHOR'S ORGANIZ ATION 07/12/2023 [facility] DATE CREATED AUTHOR AUTHOR'S ORGANIZ ATION 06/29/2025 [facility] Source Comments (unrecognize d section and content) In the event this informatio n is protected by the Federal Confidentiality of Alcohol and Drug Abuse Patient Records regulations: The Federal rules restrict any use of the information to criminally investigate or prosecute any alcohol or drug abuse patient.[facility] HealthcareIn the event this information is protected by the Federal Confidentiality of Alcohol and Drug Abuse Patient Records regulations: The Federal rules restrict any use of the information to criminally investigate or prosecute any alcohol or drug abuse patient.[facility] HealthcareIn the event this information is protected by the Federal Confidentiality of Alcohol and Drug Abuse Patient Records regulations: The Federal rules restrict any use of the information to criminally investigate or prosecute any alcohol or drug abuse patient.[facility] HealthcareIn the event this information is protected by the Federal Confidentiality of Alcohol and Drug Abuse Patient Records regulations: The Federal rules restrict any use of the information to criminally investigate or prosecute any alcohol or drug abuse patient.[facility] HealthcareIn the event this information is protected by the Federal Confidentiality of Alcohol and Drug Abuse Patient Records regulations: The Federal rules restrict any use of the information to criminally investigate or prosecute any alcohol or drug abuse patient.[facility] HealthcareIn the event this information is protected by the Federal Confidentiality of Alcohol and Drug Abuse Patient Records regulations: The Federal rules restrict any use of the information to criminally investigate or prosecute any alcohol or drug abuse patient.[facility] HealthcareIn the event this information is protected by the Federal Confidentiality of Alcohol and Drug Abuse Patient Records regulations: The Federal rules restrict any use of the information to criminally investigate or prosecute any alcohol or drug abuse patient.[facility] HealthcareIn the event this information is protected by the Federal Confidentiality of Alcohol and Drug Abuse Patient Records regulations: The Federal rules restrict any use of the information to criminally investigate or prosecute any alcohol or drug abuse patient.[facility] HealthcareIn the event this information is protected by the Federal Confidentiality of Alcohol and Drug Abuse Patient Records regulations: The Federal rules restrict any use of the information to criminally investigate or prosecute any alcohol or drug abuse patient.[facility] HealthcareIn the event this information is protected by the Federal Confidentiality of Alcohol and Drug Abuse Patient Records regulations: The Federal rules restrict any use of the information to criminally investigate or prosecute any alcohol or drug abuse patient.[facility] HealthcareIn the event this information is protected by the Federal Confidentiality of Alcohol and Drug Abuse Patient Records regulations: The Federal rules restrict any use of the information to criminally investigate or prosecute any alcohol or drug abuse patient.[facility] HealthcareIn the event this information is protected by the Federal Confidentiality of Alcohol and Drug Abuse Patient Records regulations: The Federal rules restrict any use of the information to criminally investigate or prosecute any alcohol or drug abuse patient.[facility] HealthcareIn the event this information is protected by the Federal Confidentiality of Alcohol and Drug Abuse Patient Records regulations: The Federal rules restrict any use of the information to criminally investigate or prosecute any alcohol or drug abuse patient.[facility] HealthcareIn the event this information is protected by the Federal Confidentiality of Alcohol and Drug Abuse Patient Records regulations: The Federal rules restrict any use of the information to criminally investigate or prosecute any alcohol or drug abuse patient.[facility] HealthcareIn the event this information is protected by the Federal Confidentiality of Alcohol and Drug Abuse Patient Records regulations: The Federal rules restrict any use of the information to criminally investigate or prosecute any alcohol or drug abuse patient.[facility] HealthcareIn the event this information is protected by the Federal Confidentiality of Alcohol and Drug Abuse Patient Records regulations: The Federal rules restrict any use of the information to criminally investigate or prosecute any alcohol or drug abuse patient.[facility] HealthcareIn the event this information is protected by the Federal Confidentiality of Alcohol and Drug Abuse Patient Records regulations: The Federal rules restrict any use of the information to criminally investigate or prosecute any alcohol or drug abuse patient.[facility] Care Teams (unrecognized sec tion and content) Manager Fashion Relationship Specialty Start Date End Date Sharif Christianson [address] [place] [address] PCP - General Family Practice 10/21/19 Manager Fashion Relationship Specialty Start Date End Date Sharif Christianson [address] [place] [address] PCP - General Family Practice 10/21/19 Manager Fashion Relationship Specialty Start Date End Date Sharif Christianson [address] [place] [address] PCP - General Family Practice 10/21/19 Manager Fashion Relationship Specialty Start Date End Date Sharif Christianson [address] [place] [address] PCP - General Family Practice 10/21/19 Manager Fashion Relationship Specialty Start Date End Date Sharif Christianson [address] [place] [address] PCP - General Family Practice 10/21/19 Ryan, Av[place] S [address] [place] [address] Cardiology 01/17/22 Manager Fashion Relationship Specialty Start Date End Date Sharif Christianson [address] [facility] [address] [place] [address] PCP - General Family Practice 10/21/19 Ryan, Av[place] S [address] [place] [address] Cardiology 01/17/22 Manager Fashion Relationship Specialty Start Date End Date Sharif Christianson [address] [facility] [address] [place] [address] PCP - General Family Practice 10/21/19 Ryan, Av[place] S [address] [place] [address] Cardiology 01/17/22 Manager Fashion Relationship Specialty Start Date End Date Sharif Christianson [address] [facility] [address] [place] [address] PCP - General Family Practice 10/21/19 Ryan, [place] S [address] [place] [address] Cardiology 01/17/22 Manager Fashion Relationship Specialty Start Date End Date Sharif Christianson [address] [facility] [address] [place] [address] PCP - General Family Practice 10/21/19 Ryan, Eder S [address] [place] [address] Cardiology 01/17/22 Manager Fashion Relationship Specialty Start Date End Date Sharif Christianson [address] [place] [address] PCP - General Family Practice 10/21/19 Ryan, [place] S [address] [place] [address] Cardiology 01/17/22 Manager Fashion Relationship Specialty Start Date End Date Sharif Christianson [address] [place] [address] PCP - General Family Practice 10/21/19 Ryan, [place] S [address] [place] [address] Cardiology 01/17/22 Manager Fashion Relationship Specialty Start Date End Date Sharif Christianson [address] [place] [address] PCP - General Family Practice 10/21/19 Ryan, [place] S [address] [place] [address] Cardiology 01/17/22 Manager Fashion Relationship Specialty Start Date End Date Sharif Christianson [address] [place] [address] PCP - General Family Practice 10/21/19 Ryan, Eder S [address] [place] [address] Cardiology 01/17/22 Manager Fashion Relationship Specialty Start Date End Date Sharif Christianson [address] [place] [address] PCP - General Family Practice 10/21/19 Ryan, Eder S [address] [place] [address] Cardiology 01/17/22 Manager Fashion Relationship Specialty Start Date End Date Anderskellyjosh Sharif Reyes [address] [place] [address] PCP - General Family Medicine 10/21/19 Ryan, [place] S [address] [place] [address] Cardiology 01/17/22 Manager Fashion Relationship Specialty Start Date End Date Anderspower Sharif Reyes [address] [place] [address] PCP - General Family Medicine 10/21/19 Ryan, Av[place] S [address] [place] [address] Cardiology 01/17/22 Manager Fashion Relationship Specialty Start Date End Date Anderspower Sharif Reyes [address] [place] [address] PCP - General Family Medicine 10/21/19 Ryan, Eder S [address] [place] [address] Cardiology 01/17/22 Team Status: Active Member Role Status Dates No Primary Care Physician Family Provider Active LANEY Ma Primary Care Provider Active Team Status: Inactive Member Role Status Dates Dr. Sharif Christianson MD Primary Care Provider, Referr ing Provider Active Dr. Shannan Waldrop MD Attending Provider Active Team Status: Inactive Member Role Status Dates Dr. Sharif Christiansno MD Primary Care Provider, Referr ing Provider Active Ivonne Mendoza PA, PA Attending Provider Active Team Status: Active Member Role Status Dates Iris Barkman , SLOT MACHINE DEPARTMENT FLOORPERSON-C Primary Care Provider Active Dr. Dave Rossi [...] Care Provider, Referring Provider Active Sharif Nieto SLOT MACHINE DEPARTMENT FLOORPERSON, SLOT MACHINE DEPARTMENT FLOORPERSON-C Attending Provider Active Team Status: Inactive Member Role Status Dates Dr. Sharif Christianson MD Primary Care Provider, Referr ing Provider Active Sabi Lynn SLOT MACHINE DEPARTMENT FLOORPERSON, SLOT MACHINE DEPARTMENT FLOORPERSON-C Attending Provider Active Team Status: Active Member [...] 2024 End: August 09, 2024 Sabi Lynn SLOT MACHINE DEPARTMENT FLOORPERSON, SLOT MACHINE DEPARTMENT FLOORPERSON-C Attending Provider Active Start: August 09, 2024 [...] 2024 End: September 21, 2024 Sabi Lynn SLOT MACHINE DEPARTMENT FLOORPERSON, SLOT MACHINE DEPARTMENT FLOORPERSON-C Attending Provider Active Start: September 21, 2024 End: September 21, 2024 Team Status: Inactive Member Role Status Dates Dr. Sharif Christianson MD Primary Care Provider Active Start: October 12, 2024 End: October 12, 2024 Dr. Sahrif Christianson MD Referring Provider Active Start: October [...] 2024 End: November 02, 2024 Sabi Lynn SLOT MACHINE DEPARTMENT FLOORPERSON, SLOT MACHINE DEPARTMENT FLOORPERSON-C Attending Provider Active Start: November 02, 2024 [...] 2024 End: November 23, 2024 Sabi Lynn SLOT MACHINE DEPARTMENT FLOORPERSON, SLOT MACHINE DEPARTMENT FLOORPERSON-C Attending Provider Active Start: November 23, 2024 [...] 2024 End: November 30, 2024 Sabi Leah SLOT MACHINE DEPARTMENT FLOORPERSON, SLOT MACHINE DEPARTMENT FLOORPERSON-C Attending Provider Active Start: November 30, 2024 End: November 30, 2024 Sabi Lynn SLOT MACHINE DEPARTMENT FLOORPERSON, SLOT MACHINE DEPARTMENT FLOORPERSON-C Referring Provider Active Start: November 30, 2024 [...] 2024 End: November 02, 2024 Sabi Lynn SLOT MACHINE DEPARTMENT FLOORPERSON, SLOT MACHINE DEPARTMENT FLOORPERSON-C Attending Provider Active Start: November 02, 2024 [...] 2024 End: November 23, 2024 Sabi Lynn SLOT MACHINE DEPARTMENT FLOORPERSON, SLOT MACHINE DEPARTMENT FLOORPERSON-C Attending Provider Active Start: November 23, 2024 End: November 23, 2024 Team Status: Inactive Member Role/Relationship Status Dates Dr. Sharif Christianson MD Primary Care Provider Active Start: November 30, 2024 End: November 30, 2024 Sabi Lynn SLOT MACHINE DEPARTMENT FLOORPERSON, SLOT MACHINE DEPARTMENT FLOORPERSON-C Attending Provider Active Start: November 30, 2024 End: November 30, 2024 Sabi Lynn SLOT MACHINE DEPARTMENT FLOORPERSON, SLOT MACHINE DEPARTMENT FLOORPERSON-C Referring Provider Active Start: November 30, 2024 [...] Inactive Member Role/Relationship Status Dates Dr. Sharif hCristianson MD Primary Care Provider Active Start: January [...] 2025 End: February 22, 2025 Sabi Lynn SLOT MACHINE DEPARTMENT FLOORPERSON, SLOT MACHINE DEPARTMENT FLOORPERSON-C Attending Provider Active Start: February 22, 2025 [...] 2024 End: November 23, 2024 Sabi Lynn SLOT MACHINE DEPARTMENT FLOORPERSON, SLOT MACHINE DEPARTMENT FLOORPERSON-C Attending Provider Active Start: November 23, 2024 End: November 23, 2024 Team Status: Inactive Member Role/Relationship Status Dates Dr. Sharif Christianson MD Primary Care Provider Active Start: November 30, 2024 End: November 30, 2024 Sabi Lynn SLOT MACHINE DEPARTMENT FLOORPERSON, SLOT MACHINE DEPARTMENT FLOORPERSON-C Attending Provider Active Start: November 30, 2024 End: November 30, 2024 Sabi Lynn SLOT MACHINE DEPARTMENT FLOORPERSON, SLOT MACHINE DEPARTMENT FLOORPERSON-C Referring Provider Active Start: November 30, 2024 [...] 2025 End: February 22, 2025 Sabi Lynn SLOT MACHINE DEPARTMENT FLOORPERSON, SLOT MACHINE DEPARTMENT FLOORPERSON-C Attending Provider Active Start: February 22, 2025 [...] 2024 End: November 23, 2024 Sabi Lynn SLOT MACHINE DEPARTMENT FLOORPERSON, SLOT MACHINE DEPARTMENT FLOORPERSON-C Attending Provider Active Start: November 23, 2024 End: November 23, 2024 Team Status: Inactive Member Role/Relationship Status Dates Dr. Sharif Christianson MD Primary Care Provider Active Start: November 30, 2024 End: November 30, 2024 Sabi Lynn SLOT MACHINE DEPARTMENT FLOORPERSON, SLOT MACHINE DEPARTMENT FLOORPERSON-C Attending Provider Active Start: November 30, 2024 End: November 30, 2024 Sabi Lynn SLOT MACHINE DEPARTMENT FLOORPERSON, SLOT MACHINE DEPARTMENT FLOORPERSON-C Referring Provider Active Start: November 30, 2024 [...] 2025 End: February 22, 2025 Sabi Lynn SLOT MACHINE DEPARTMENT FLOORPERSON, SLOT MACHINE DEPARTMENT FLOORPERSON-C Attending Provider Active Start: February 22, 2025 [...] End: February 22, 2025 Sabi Lynn NP, SLOT MACHINE DEPARTMENT FLOORPERSON-C Attending Provider Active Start: February 22, 2025 [...] 15, 2025 End: March 15, 2025 Dr. Nci Hall MD Attending Provider Active S tart: [...] 2025 End: February 22, 2025 Sabi Lynn SLOT MACHINE DEPARTMENT FLOORPERSON, SLOT MACHINE DEPARTMENT FLOORPERSON-C Attending Provider Active Start: February 22, 2025 [...] 2025 End: February 22, 2025 Sabi Lynn SLOT MACHINE DEPARTMENT FLOORPERSON, SLOT MACHINE DEPARTMENT FLOORPERSON-C Attending physician Active Start: February 22, 2025 [...] 2025 End: February 22, 2025 Sabi Lynn SLOT MACHINE DEPARTMENT FLOORPERSON, SLOT MACHINE DEPARTMENT FLOORPERSON-C Attending physician Active Start: February 22, 2025 [...] 2025 End: June 07, 2025 Sabi Lynn SLOT MACHINE DEPARTMENT FLOORPERSON, SLOT MACHINE DEPARTMENT FLOORPERSON-C Attending physician Active Start: June 07, 2025 End: June 07, 2025 Team Status: Active Member Role/Relationship Status Dates Dr. Sharif Christiansno MD Primary care physician Active Start: June [...] Inactive Member Role/Relationship Status Dates Dr. Sharif Chirstianson MD Primary care physician Active Start: March [...] 28, 2025 End: March 28, 2025 Dr. Shanann Waldrop MD Attending physician Active Start: March [...] 2025 End: June 07, 2025 Sabi Lynn SLOT MACHINE DEPARTMENT FLOORPERSON, SLOT MACHINE DEPARTMENT FLOORPERSON-C Attending physician Active Start: June 07, 2025 [...] CT HEAD/BRAIN W/O CONTRAST MATERIAL Kacy Glez, SALES APPLICATIONS ENGINEER.[employer] [address] [place] [address] Ct Imaging Referral ID Status Reason Start Date Expiration Date V isits Requested Visits Authorized [id number] Closed Auto-Generate d Referral 12/25/2021 02/25/2022 1 [...] sx with Juhi K; pt discharged from [facility] at [facility] on 04.17.2022 Specialty Diagnoses / Procedures Referred By Contac t Referred To Contact CT IMAGING Diagnoses Subdural hemorrhage (HCC) Procedures CT BRAIN WO IVCON CT HEAD/BRAIN W/O CONTRAST MATERIAL Jitendra Apple, SALES APPLICATIONS ENGINEER.SILO ERECTOR [address] [facility] [address] [place] [address] Ct Imaging Referral ID Status Reason Start Date Expiration Date V isits Requested Visits Authorized [id number] Closed Auto-Generate d Referral 04/12/2022 05/05/2023 1 1 Reason Comments Established Patient Referral ID Status Reason Start Date Expiration Date V isits Requested Visits Authorized [id number] Closed Auto-Generate d Referral 05/07/2022 07/07/2022 1 [...] BE BASED ON THE PRIMARY CLINICAL RECORDS. [employer] provides no warranty or guarantee of the accuracy or completeness of information in this document.
== END | disposition home or self-care (01) ==
LOC: NM 07:43
PROVIDERS: PCP Family Medicine; Referring Provider Internal Medicine Hematology & Oncology; Visit Provider Internal Medicine Hematology & Oncology
DX: C34.12 Malignant neoplasm of upper lobe, left bronchus or lung (principal); C78.01 Secondary malignant neoplasm of right lung; C78.02 Secondary malignant neoplasm of left lung
CPT/HCPCS: 78306; A9503